=== PATIENT | male | born 1945 | race Caucasian/White ===

== ENCOUNTER 2020-05-24 08:43 | Outpatient (CLI) | payer MEDICARE, SELFPAY ==
--- NOTE | ~2020-05-24 | XR_ITS ---
EXAMINATION: XR abdomen/kub 1V INDICATION: Bilateral kidney stones TECHNIQUE: Supine views of the abdomen were obtained on 2 radiographs. COMPARISON: None FINDINGS: Bowel contents project over the kidneys limiting sensitivity for renal stones. A 4 mm ston e projects in the lower pole of the right kidney. A 5 mm stone projects in the left mid kidney. No de finite stones project along the expected courses of the ureters or within the urinary bladder. There are phleboliths of the pelvis. The bowel gas pattern is normal. There is moderate osteoarthritis of t he hips. IMPRESSION: 1. Bilateral nephrolithiasis. Reviewed, dictated and finalized at location A. O ARTIST
== END 2020-05-24 08:44 | disposition home or self-care (01) ==
LOC: ANHIMG 08:54
PROVIDERS: PCP Physician Assistant; Visit Provider Surgery
DX: N20.0 Calculus of kidney (principal)
CPT/HCPCS: 74018

== ENCOUNTER 2020-06-28 01:45 | Outpatient (CLI) | payer MEDICARE, SELFPAY ==
[2020-06-28 18:12] LABS: SARS-CoV-2 RNA PCR Negative
== END 2020-06-28 01:46 | disposition home or self-care (01) ==
LOC: ANHCOVIDDT 01:48
PROVIDERS: PCP Physician Assistant; Visit Provider Urology
DX: Z01.812 Encounter for preprocedural laboratory examination (principal); Z20.822 Contact with and (suspected) exposure to COVID-19
CPT/HCPCS: C9803; U0003; U0005

== ENCOUNTER 2020-07-01 01:02 | Day surgery (SDC) | payer MEDICARE, SELFPAY ==
[2020-06-17 09:16] VITALS: BMI 27.5
--- NOTE | 2020-06-28 07:17 | PM.HPGS ---
History of Present Illness History of Present Illness Consent: Risks, benefits, and alternatives have been discussed and questions answered. Patient agrees to proceed with procedure. Chief complaint: Bilateral Kidney Stones Narrative: Samuel Sanchez is a 75 year old male with a long history of recurring urolithiasis who has previously seen Dr. Howard Caballero. With my 1st evaluation upper urinary tract imaging revealed bilateral renal calculi measuring 4-5 mm. Is somewhat symptomatic on the right, prompting decision to proceed with right ESWL. He may opt for left ESWL in the future, as well. Review of Systems Cardiovascular: Cardiovascular: Denies chest pain, Denies lightheadedness, Denies palpitations and Denies dyspnea Respiratory: Respiratory: Denies dyspnea Gastrointestinal: Gastrointestinal: Denies diarrhea, Denies nausea and Denies vomiting Genitourinary: Genitourinary: Denies hematuria and Denies dysuria Endocrine: Endocrine: Denies palpitations [facility] Social History Social History Smoking packs per day: 1.5 Smoking cigarettes per day: 30.0 Years smoked: 30 Smoking pack-years: 45.00 Smoking status: Former smoker Tobacco type: cigarettes Second hand tobacco smoke exposure: No Additional smoking assessment comments: QUIT 1994 Alcohol intake: current Drinks per week: 3 Substance use: never Substance use type: does not use Spiritual care concerns: No Meds Home Medications and Allergies Home Medications Medication Instructions Recorded Confirmed Type biotin 10,000 mcg PO DAILY 06/17/20 06/17/20 History famotidine 40 mg PO HS 06/17/20 06/17/20 History ketoconazole 1 applic TOPICAL 3XW 06/17/20 06/17/20 History methotrexate sodium [Methotrexate 2.5 mg PO WEEKLY 06/17/20 06/17/20 History (Anti-Rheumatic)] multivitamin [Multi-Vitamin] 1 tablet PO DAILY 06/17/20 06/17/20 History omeprazole 40 mg PO DAILY 06/17/20 06/17/20 History tamsulosin [Flomax] 0.4 mg PO DAILY 06/17/20 06/17/20 History tizanidine 4 mg PO TID PRN 06/17/20 06/17/20 History vit C,T-Ae-nvedh-lutein-zeaxan 1 tablet PO BID 06/17/20 06/17/20 History [PreserVision AREDS-2] Allergies Allergy/AdvReac Type Severity Reaction Status Date / Time hydrocodone [From Vicodin] AdvReac Itching Verified 06/17/20 09:10 Exam Const: General: no acute distress Resp: Effort & Inspection: normal respiratory effort GI: Inspection: non-distended GI Palp: No abdominal tenderness and No Guarding due to palpation present (GI) Auscultation: normal bowel sounds Assessment and Plan Assessment and plan (1) Bilateral renal stones: Code(s): N20.0 - Calculus of kidney Status: Acute Assessment and Plan: Right ESWL
--- NOTE | 2020-06-30 14:36 | WPDANESEPPF ---
Anes - Initial Pre Proc Eval Procedure: Operation Date: 07/01/20 07:30 Proposed Procedures p Right Extracorporeal Shock Wave Lithotripsy - Manpreet Saravia MD Date/Time: 06/30/20 14:36 Surgeon: Manpreet Saravia MD Pre Op Diagnosis: Bilateral Kidney Stones Patient Data Age: 75 Gender: M Height: 1.85 m Weight: 94.54 kg Allergies Allergy/AdvReac Type Severity Reaction Status Date / Time hydrocodone [From Vicodin] AdvReac Itching Verified 07/01/20 06:49 Home Medications Medication Instructions Recorded Confirmed Type biotin 10,000 mcg PO DAILY 06/17/20 07/01/20 History famotidine 40 mg PO HS 06/17/20 07/01/20 History ketoconazole 1 applic TOPICAL 3XW 06/17/20 07/01/20 History methotrexate sodium [Methotrexate 2.5 mg PO WEEKLY 06/17/20 07/01/20 History (Anti-Rheumatic)] multivitamin [Multi-Vitamin] 1 tablet PO DAILY 06/17/20 07/01/20 History omeprazole 40 mg PO DAILY 06/17/20 07/01/20 History tamsulosin [Flomax] 0.4 mg PO DAILY 06/17/20 07/01/20 History tizanidine 4 mg PO TID PRN 06/17/20 07/01/20 History vit C,I-Ni-tbpne-lutein-zeaxan 1 tablet PO BID 06/17/20 07/01/20 History [PreserVision AREDS-2] Patient hx anesthesia problems: none Family hx anesthesia problems: none PMFSH Past Medical History Medical History (Updated 06/30/20 @ 14:38 by Rogelio Dias MD) Bilateral renal stones BPH (benign prostatic hyperplasia) Chronic GERD Laryngeal cancer Osteoarthritis Rheumatoid arthritis Social History Social History Smoking packs per day: 1.5 Smoking cigarettes per day: 30.0 Years smoked: 30 Smoking pack-years: 45.00 Smoking status: Former smoker Tobacco type: cigarettes Second hand tobacco smoke exposure: No Additional smoking assessment comments: QUIT 1993 Alcohol intake: current Drinks per week: 3 Substance use: never Substance use type: does not use Living arrangements: with family Spiritual care concerns: No Anes - Eval Final PreProcedure Day of Procedure 06/30/20 14:36 Patient weight: obese Heart: regular rate and rhythm Lungs: clear to auscultation and normal air movement Airway: Mallampati scale class II Neurological: alert and oriented Last oral intake: >/= 8 hours ASA classification: III Emergent: no Anesthetic plan: proceed Anesthesia type and monitoring: general LMA Informed Consent: The patient's anesthetic plan and its attendant risks and benefits were discussed with the patient/family/POA. Questions were solicited and answers provided to the satisfaction of the patient/family/POA.
[2020-07-01] VITALS (9 sets, daily range): BP systolic 98–135; BP diastolic 62–87; PULSE 58–64; RESP 12–20; TEMP 36.3–36.6; O2SAT 96–100
--- NOTE | ~2020-07-01 | XR_ITS ---
EXAMINATION: XR abdomen/kub 1V EXAM DATE: 07/01/2020 06:20 INDICATION: For lithotripsy. TECHNIQUE: Frontal projection(s) of the abdomen for interpretation. Comparison is made to prior exami nation from 05/24/2020. FINDINGS: Stool overlying both renal contours, but possible identification of previously suspected 5 mm right inferior calyceal stone. The pelvic calcifications appear unchanged. Moderate bony degenerat marcelino changes. Nonobstructive bowel gas pattern. IMPRESSION: Probable identification right nephrolithiasis. Reviewed, dictated and finalized at location A. ING MANAGER
--- NOTE | 2020-07-01 06:49 | WPDHPUPDATE1 ---
History and Physical Update Update Date/Time: 07/01/20 06:49 History and Physical has been reviewed, including an updated exam of the patient. There are NO changes in the patient's condition. Risks, benefits, and alternatives have been discussed and questions answered. Patient agrees to proceed with procedure.
[2020-07-01] MEDS: LACTATED RINGERS 1,000 ML 30 ML IV CONT ×2 (06:58→08:01)
[2020-07-01] MEDS: ceFAZolin 2 GM/D5W 50 ML 2 GM/50 ML BAG IVPB (07:19)
--- NOTE | 2020-07-01 07:44 | PM.PROC ---
Procedure Note - Detailed Date of procedure: 07/01/20 Pre-op diagnosis: Bilateral Kidney Stones Post-op diagnosis: same Procedure performed: Right ESWL Description of procedure: The patient was brought to the operative suite where he was placed in the supine position on the Dornier lithotripsy table. The focal point of the lithotripter was placed at a 5mm right lower pole calculus. A total of 2500 shocks were delivered at a power setting of 4. There appeared to be good fragmentation of the stone. The patient tolerated the procedure well and was taken to the recovery room in good condition. Anesthesia: GLMA Surgeon: Manpreet Saravia MD Estimated blood loss (mL): 0 Drains: No Packing: No Pathology: none sent Complications: No immediate complications Condition: stable Disposition: PACU
== END 2020-07-01 09:27 | disposition home or self-care (01) ==
PROVIDERS: PCP Physician Assistant; Visit Provider Urology
PROC: (CPT 50590; principal; 2020-07-01 07:30)
DX: N20.0 Calculus of kidney (principal); Z87.891 Personal history of nicotine dependence
CPT/HCPCS: 50590; 74018; C9803; J0690; J1100; J2405; J2704; J3010; J7120; U0003; U0005

== ENCOUNTER 2020-12-01 01:42 | Day surgery (SDC) | payer MEDICARE, SELFPAY ==
[2020-11-30 16:01] VITALS: BMI 27.7
--- NOTE | ~2020-12-01 | XR_ITS ---
EXAMINATION: XR fluoroscopy no charge DATE: 12/01/2020 14:01 INDICATION: Left ureteral stone. TECHNIQUE: 5 intraoperative fluoroscopic views of the abdomen and pelvis were obtained. I was not pre sent. Fluoroscopy exposure time was 46 seconds. COMPARISON: Abdomen radiographs 07/01/2020 FINDINGS: Images demonstrate a wire in the left ureter. IMPRESSION: 1. No visible urolithiasis. Reviewed, dictated and finalized at location A. IMPRESSION: 1. No visible urolithiasis.
--- NOTE | 2020-12-01 06:41 | WPDHPUPDATE1 ---
History and Physical Update Update Date/Time: 12/01/20 06:41 History and Physical has been reviewed, including an updated exam of the patient. There are NO changes in the patient's condition. Risks, benefits, and alternatives have been discussed and questions answered. Patient agrees to proceed with procedure.
[2020-12-01 12:03] VITALS: BP 114/79; PULSE 72; RESP 20; TEMP 36.6; O2SAT 99
--- NOTE | 2020-12-01 12:16 | WPDANESEPPF ---
Anes - Initial Pre Proc Eval Procedure: Operation Date: 12/01/20 15:00 Proposed Procedures p Cystoscopy, Left Ureteroscopy, Left Retrograde Pyelogram, Left Stone Extraction, Possible Left Stent Placement, - Manpreet Saravia MD s Possible Holmium Laser Procedure - Manpreet Saravia MD Date/Time: 12/01/20 12:16 Surgeon: Manpreet Saravia MD Pre Op Diagnosis: left renal stone Patient Data Age: 75 Gender: M Height: 1.85 m Weight: 96.2 kg Last Vital Signs Temp 36.6 C 12/01/20 12:03 Pulse 72 12/01/20 12:03 Resp 20 12/01/20 12:03 BP 114/79 12/01/20 12:03 Pulse Ox 99 12/01/20 12:03 Allergies Allergy/AdvReac Type Severity Reaction Status Date / Time hydrocodone [From Vicodin] AdvReac Itching Verified 11/30/20 15:40 Home Medications Medication Instructions Recorded Confirmed Type PreserVision AREDS-2 1 tablet PO BID 06/17/20 12/01/20 History biotin 10,000 mcg PO DAILY 06/17/20 12/01/20 History famotidine 40 mg PO HS 06/17/20 12/01/20 History ketoconazole 1 applic TOPICAL 3XW 06/17/20 12/01/20 History methotrexate sodium 2.5 mg PO WEEKLY 06/17/20 12/01/20 History multivitamin 1 tablet PO DAILY 06/17/20 12/01/20 History omeprazole 40 mg PO DAILY 06/17/20 12/01/20 History tamsulosin [Flomax] 0.4 mg PO DAILY 06/17/20 12/01/20 History tizanidine 4 mg PO TID PRN 06/17/20 12/01/20 History tramadol 50 mg PO Q6H PRN #20 tablet 07/01/20 12/01/20 Rx Patient hx anesthesia problems: none Family hx anesthesia problems: none PMFSH Past Medical History Medical History Bilateral renal stones BPH (benign prostatic hyperplasia) Chronic GERD Laryngeal cancer Osteoarthritis Rheumatoid arthritis Social History Social History Smoking packs per day: 1.5 Smoking cigarettes per day: 30.0 Years smoked: 37 Smoking pack-years: 55.50 Smoking status: Former smoker Tobacco type: cigarettes Second hand tobacco smoke exposure: No Smoking end date: 06/03/93 Additional smoking assessment comments: QUIT 1993 Alcohol intake: current Drinks per week: 3 Substance use: never Substance use type: does not use Living arrangements: with family Spiritual care concerns: No Anes - Eval Final PreProcedure Day of Procedure 12/01/20 12:16 Patient weight: overweight Heart: regular rate and rhythm Lungs: clear to auscultation Airway: Mallampati scale class II Neurological: alert and oriented Last oral intake: >/= 8 hours ASA classification: III Anesthetic plan: proceed Anesthesia type and monitoring: general LMA and standard monitoring Informed Consent: The patient's anesthetic plan and its attendant risks and benefits were discussed with the patient/family/POA. Questions were solicited and answers provided to the satisfaction of the patient/family/POA.
[2020-12-01] MEDS: LACTATED RINGERS 1,000 ML 30 ML IV CONT (12:20)
[2020-12-01] MEDS: ceFAZolin 2 GM/D5W 50 ML 2 GM/50 ML BAG IVPB (13:30)
[2020-12-01] MEDS: LIDOCAINE HCL 2% GEL UROJET 10 ML PKG MUCOUS MEM (13:44)
[2020-12-01] MEDS: KETOROLAC 15 MG/ML VIAL (*BKC) IV PUSH (13:54)
[2020-12-01 14:02] VITALS: BP 99/75; PULSE 60; RESP 10; TEMP 36.2; O2SAT 99
--- NOTE | 2020-12-01 14:08 | W.PM.PROC2 ---
Procedure Note - Detailed Date of Procedure 12/01/20 Pre-op Diagnosis left ureterall stone Post-op Diagnosis other (1. Left ureteral stone 2. Bulbous urethral stricture) Procedure Performed 1. Cystoscopy with urethral dilatation 2. Left ureteroscopy with stone extraction Surgeon Manpreet Saravia MD Assignment Officer none Anesthesia general Indications left ureteral stone Findings 1. Moderately constricting bulbous urethral stricture 2. 5mm left distal ureteal stone Description of Procedure patient brought to the op suite where he has prepped draped in routine sterile fashion while in a dorsal lithotomy position. 2% xylocaine jelly was introduced intraurethrally and general anesthesia administered per the anesthesia department. I could passively 19 F rigid cystoscope because of a bulbous urethral stricture. I dilated that from 16-26 F with Kellie sounds. The place the scope. He has moderate lateral lobe hyperplasia of the prostate with only a small median lobe. The bladder was trabeculated but there is no intravesical foreign body or neoplasm in the urothelial mucosa is normal in appearance. His single orthotopic ureteral orifice bilaterally. A 0.035 in glidewire was advanced in the left renal pelvis. The distal ureter was dilated with an 8 F times F dilator. Left ureteroscopy was undertaken with a semi rigid ureteral scope. I grasped the stone with a 1.9 F disposable escape basket but it was just too large to extracted this point. Therefore gently dilated the distal ureter with a 10 cm balloon at low pressure in for a short period of time. With repeat ureteroscopy the stone then easily came free and was extracted. Considered placing left ureteral stent because of the relative ease of this procedure opted against it. Scopes and wires removed and was taken recovery room in good condition. Implants none Estimated Blood Loss 0 Drains No Packing No Pathology yes Complications No immediate complications Condition stable Disposition PACU
[2020-12-01 14:15] VITALS: BP 118/83; PULSE 64; RESP 17; O2SAT 100
[2020-12-01 14:30] VITALS: BP 127/86; PULSE 60; RESP 12; O2SAT 99
[2020-12-01 14:45] VITALS: BP 122/77; PULSE 57
[2020-12-01 15:15] VITALS: BP 139/78; PULSE 56
== END 2020-12-01 15:30 | disposition home or self-care (01) ==
PROVIDERS: PCP Physician Assistant; Visit Provider Urology
PROC: (CPT 52352; principal; 2020-12-01 15:00)
DX: N20.1 Calculus of ureter (principal); N35.912 Unspecified bulbous urethral stricture, male; N40.0 Benign prostatic hyperplasia without lower urinary tract symptoms; K21.9 Gastro-esophageal reflux disease without esophagitis; M06.9 Rheumatoid arthritis, unspecified; M19.90 Unspecified osteoarthritis, unspecified site; Z87.891 Personal history of nicotine dependence; Z85.21 Personal history of malignant neoplasm of larynx
CPT/HCPCS: 52352; 82365; 88300; A9270; C1726; C1769; J0690; J1100; J1885; J2405; J2704; J3010; J7120; Q9966

== ENCOUNTER 2020-12-06 13:42 | Outpatient (CLI) | payer MEDICARE, SELFPAY ==
--- NOTE | ~2020-12-06 | US_ITS ---
EXAMINATION: US retroperitoneal comp EXAM DATE: 12/06/2020 14:10 INDICATION: Left flank pain. TECHNIQUE: Multiple grayscale and Doppler images of the kidneys were obtained (by a technologist who performed the scan) and subsequently reviewed. There is no prior study for comparison. FINDINGS: Right kidney: There is normal contour with increased renal pyramid echogenicity. It measures 10.8 x 5.9 x 7.3 centimeters. There is a cyst measuring 3 cm. There is no hydronephrosis. Left kidney: There is normal contour with increased renal parenchymal echogenicity. It measures 11.1 x 6.2 x 7.0 centimeters. There are no focal renal lesions identified. Mild to moderate hydronephro sis Bladder unremarkable.. Neither ureteral jet was identified. Prostate measures 4.1 cm diameter total v olume 47 mL. IMPRESSION: 1. 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 2. Mild to moderate left hydronephrosis which could indicate obstructing stone. Reviewed, dictated and finalized at location B. IMPRESSION: 1. 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 2. Mild to moderate left hydronephrosis which could indicate obstructing stone .
== END 2020-12-06 13:43 | disposition home or self-care (01) ==
LOC: ANHIMG 13:46
PROVIDERS: PCP Physician Assistant; Visit Provider Urology
DX: R10.9 Unspecified abdominal pain (principal)
CPT/HCPCS: 76770

== ENCOUNTER 2021-09-04 13:33 | Outpatient (CLI) | payer MEDICARE, SELFPAY ==
--- NOTE | ~2021-09-04 | XR_ITS ---
EXAMINATION: XR abdomen/kub 1V DATE: 09/04/2021 13:51 INDICATION: Left hydronephrosis. TECHNIQUE: A supine view of the abdomen on 2 radiographs was obtained. COMPARISON: Abdomen radiographs 07/01/2020, 05/24/2020 FINDINGS: There are no dilated loops of bowel. There are vascular calcifications in the pelvis. IMPRESSION: 1. No visible urolithiasis. Reviewed, dictated and finalized at location A. IMPRESSION: 1. No visible urolithiasis.
== END 2021-09-04 13:34 | disposition home or self-care (01) ==
LOC: ANHIMG 13:37
PROVIDERS: PCP Physician Assistant; Visit Provider Urology
DX: N13.30 Unspecified hydronephrosis (principal)
CPT/HCPCS: 74018

== ENCOUNTER 2022-07-05 08:56 | Outpatient (CLI) | payer MEDICARE, SELFPAY ==
[2022-07-05 19:50] LABS: Basophils Percent Auto 0.5 % (0.2-1.2); Eosinophils Absolute Auto 0.2 K/mm3 (0-0.3); Eosinophils Percent Auto 3.2 % (0-4.4); Hematocrit 48.8 % (42.0-52.0); Hemoglobin 15.8 g/dL (14.0-18.0); Immature Granulocyte Absolute 0.02 K/mm3 (0.00-0.031); Immature Granulocyte Percent A 0.3 % (0-0.5); Lymphocytes Absolute Auto 1.49 K/mm3 (0.9-3.2); Mean Corpuscular HGB Conc 32.4 g/dl (32-36); Mean Corpuscular Hemoglobin 31.7 pg (26-34); Mean Platelet Volume 11.5 fl (7.4-10.4); Monocytes Absolute Auto 0.7 K/mm3 (0.1-0.6); Monocytes Percent Auto 9.2 % (2.6-8.5); Neutrophils Percent Auto 66.8 % (45.5-73.1); Platelet Count Result 167 k/mm3 (150-375); Red Blood Count 4.98 M/mm3 (4.6-6.20); Red Cell Distribution Width 13.9 % (11.5-14.5); White Blood Count 7.5 K/mm3 (4.5-10.0)
[2022-07-05 20:23] LABS: Cholesterol 166 mg/dL (0-200); HDL Direct 31 mg/dL; Triglycerides 135 mg/dL (<150)
[2022-07-05 20:33] LABS: LDL Cholesterol Direct 95 mg/dL
== END 2022-07-05 08:57 | disposition home or self-care (01) ==
PROVIDERS: PCP Family Medicine; Visit Provider Family Medicine
DX: N40.0 Benign prostatic hyperplasia without lower urinary tract symptoms (principal); Z12.5 Encounter for screening for malignant neoplasm of prostate; Z79.899 Other long term (current) drug therapy
CPT/HCPCS: 36415; 80061; 85025

== ENCOUNTER 2022-08-20 09:36 | Outpatient (CLI) | payer MEDICARE, SELFPAY ==
--- NOTE | ~2022-08-20 | XR_ITS ---
XR sinus min 3V DATE: 08/20/2022 10:10 INDICATION: Shortness of breath, nasal congestion, dizziness TECHNIQUE: matt Jay, lateral and submental vertical views COMPARISON: None FINDINGS: There are fluid levels of both maxillary sinuses. The frontal sinuses, ethmoid air cells an d sphenoid sinuses appear essentially unremarkable. Mastoid air cells appear unremarkable. IMPRESSION: Bilateral maxillary sinus air-fluid levels suggesting bilateral maxillary sinusitis Reviewed, dictated and finalized at location B. IMPRESSION: Bilateral maxillary sinus air-fluid levels suggesting bilateral max illary sinusitis
--- NOTE | ~2022-08-20 | XR_ITS ---
Clinical Indication: Dyspnea PA and lateral views of the chest: Comparison: None Findings: The lungs are clear, without evidence of focal consolidation or pleural effusion. Cardiome diastinal silhouette is within normal limits. DISH of the thoracic spine noted. Impression: Clear lungs. Reviewed, dictated and finalized at location . Impression: Clear lungs.
[2022-08-20 19:57] LABS: Alanine Aminotransferase 26 U/L (6-50); Albumin Level 4.3 g/dL (3.5-5.1); Alkaline Phosphatase 84 U/L (38-126); Anion Gap 4 mmol/L (8-16); Aspartate Amino Transferase 28 U/L (17-59); Bilirubin,Total 0.8 mg/dL (0.2-1.3); Blood Urea Nitrogen 22 mg/dL (9-20); Calcium 9.1 mg/dL (8.4-10.2); Carbon Dioxide 30 mmol/L (22-30); Chloride 106 mmol/L (98-107); Estimated Glomerular Filt Rate > 60; Glucose 127 mg/dL (65-110); Potassium 3.9 mmol/L (3.4-5.0); Sodium 140 mmol/L (137-145)
[2022-08-20 21:06] LABS: Appearance Urine Clear (Clear); Bilirubin Urine Negative (Negative); Blood Urine Negative (Negative); Color Urine Yellow (Yellow); Glucose Urine UA Negative (Negative); Ketones Urine Trace mg/dL (Negative); Leukocyte Esterase Ur Negative LEU/UL (NEGATIVE); Nitrate Urine Negative (Negative); Protein Urine Trace mg/dL (Negative); Specific Grav Ur >= 1.030 (1.001-1.035); Urobilinogen Urine 0.2 mg/dL (<2.0)
[2022-08-20 22:00] LABS: Add Urine Microscopic? YES; RBC Urine None seen /hpf (0-2)
[2022-08-20 22:01] LABS: Calcium Oxalate Crystals Urine Many /hpf; Squamous Epithelial Cell Urine Few /hpf (Few); WBC Urine 0-3 /hpf (0-3)
[2022-08-20 22:02] LABS: Bacteria Urine None seen /hpf
== END 2022-08-20 09:37 | disposition home or self-care (01) ==
PROVIDERS: PCP Family Medicine; Visit Provider Family Medicine
DX: R42 Dizziness and giddiness (principal); R06.00 Dyspnea, unspecified
CPT/HCPCS: 36415; 70220; 71046; 80053; 81001

== ENCOUNTER 2022-10-22 12:53 | Outpatient (CLI) | payer MEDICARE, SELFPAY ==
--- NOTE | ~2022-10-22 | CT_ITS ---
EXAMINATION: CT abdomen pelvis wo con DATE: 10/22/2022 13:17 INDICATION: Constipation. Lower abdominal pain. Leukocytosis TECHNIQUE: Computed tomography (CT) of the abdomen and pelvis was performed without intravenous contr ast. Automated exposure control and iterative reconstruction technique were employed. The dose-length product was 756.99 mGy-cm. COMPARISON: None FINDINGS: Mild atelectasis at the bilateral lung bases. Heart size is normal. Atherosclerotic coronary artery a nd aortic valve calcifications. No pericardial or pleural effusion. Small sliding-type hiatal hernia. 9 mm low-attenuation cyst versus hemangioma in the left hepatic lobe. Gallbladder, spleen, pancreas and bilateral adrenal glands are normal. Bilateral renal parenchymal and parapelvic cysts, the larges t at the upper pole of the right kidney measuring 4.5 cm. A few bilateral small renal stones the larg est on the right measuring 5 x 1 mm in the remainder all <2 mm. No ureteral stones or hydronephrosis. There are few scattered colonic diverticula without adjacent inflammatory stranding to suggest diver ticulitis. Fluid is seen in the ascending and transverse colon consistent with nonspecific diarrhea. Small bowel and appendix are normal. There is mild wall thickening of the partially decompressed blad jesus with haziness to the surrounding fat which could be seen with cystitis. Prostatomegaly. Small fat -containing right inguinal hernia. No free intraperitoneal gas or fluid. No pathologically enlarged a bdominal or pelvic lymphadenopathy. Mild to moderate degenerative skeletal changes in the spine and b ilateral hips. IMPRESSION: 1. Bilateral nonobstructing nephrolithiasis. 2. Fluid in the proximal to mid colon consistent with nonspecific diarrhea. Correlate clinically for gastroenteritis. 3. Mild scattered diverticulosis. 4. Mild bladder wall thickening and haziness to the surrounding fat which could be seen with cystitis . Correlate with urinalysis. 5. Prostatomegaly. 6. Small fat-containing right inguinal hernia. Reviewed, dictated and finalized at location A. IMPRESSION: 1. Bilateral nonobstructing nephrolithiasis. 2. Fluid in the proximal to mid colon consistent with nonspecific diarrhea. Cor relate clinically for gastroenteritis. 3. Mild scattered diverticulosis. 4. Mild bladder wall thickening and haziness to the surrounding fat which could be seen with cystitis. Correlate with urinalysis. 5. Prostatomegaly. 6. Small fat-containing right inguinal hernia.
== END 2022-10-22 12:54 | disposition home or self-care (01) ==
PROVIDERS: PCP Family Medicine; Visit Provider Nurse Practitioner
DX: K59.00 Constipation, unspecified (principal); R68.83 Chills (without fever); D72.829 Elevated white blood cell count, unspecified; N20.0 Calculus of kidney; K57.30 Diverticulosis of large intestine without perforation or abscess without bleeding; N40.0 Benign prostatic hyperplasia without lower urinary tract symptoms; K40.90 Unilateral inguinal hernia, without obstruction or gangrene, not specified as recurrent
CPT/HCPCS: 74176

== ENCOUNTER 2022-12-06 10:14 | Outpatient (CLI) | payer MEDICARE, SELFPAY ==
--- NOTE | ~2022-12-06 | XR_ITS ---
Right foot Technique: AP, oblique, and lateral views were obtained. Clinical History: Enthesopathy Findings: No acute fracture or dislocation is seen. Osseous alignment is anatomic. Joint spaces are p reserved without erosive or degenerative change. Soft tissues are unremarkable. Impression: Unremarkable right foot radiographs. Reviewed, dictated and finalized at [facility]. Impression: Unremarkable right foot radiographs.
== END 2022-12-06 10:15 | disposition home or self-care (01) ==
PROVIDERS: PCP Nurse Practitioner Adult Health; Visit Provider Nurse Practitioner Adult Health
DX: M77.9 Enthesopathy, unspecified (principal)
CPT/HCPCS: 73630

== ENCOUNTER 2022-12-24 09:18 | Emergency (ER) | payer MEDICARE, SELFPAY ==
--- NOTE | ~2022-12-24 | XR_ITS ---
XR chest 1V DATE: 12/24/2022 10:02 INDICATION: Dyspnea TECHNIQUE: AP chest COMPARISON: 08/20/2022 PA and lateral chest FINDINGS: Normal heart size. There is aortic ectasia and tortuosity. No hilar or mediastinal enlargem ent is evident. The lungs are clear of infiltrate or consolidation. No pleural effusion or pulmonary vascular congest ion or pneumothorax is detected. Diffuse idiopathic skeletal hyperostosis of the thoracic spine. IMPRESSION: No active cardiopulmonary disease or significant change since 08/20/2022 Reviewed, dictated and finalized at location B. IMPRESSION: No active cardiopulmonary disease or significant change since 2022
--- NOTE | ~2022-12-24 | CT_ITS ---
EXAMINATION: CT brain wo con DATE: 12/24/2022 09:54 INDICATION: Headache. Prior stroke. TECHNIQUE: Computed tomography (CT) of the head was performed without intravenous contrast. Sagittal and coronal reconstructions were performed. The mA was adjusted according to patient size. Iterative reconstruction technique was employed. The dose-length product was 605.33 mGy-cm. COMPARISON: None FINDINGS: No acute acute infarction. 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 No no evident more focal higher attenuation acute intracranial h emorrhage. Symmetric prominence of the subarachnoid spaces overlying the convexities and surrounding the cerebellum consistent with mild age-appropriate diffuse cerebral volume loss. Ventricles are nor mal and symmetric. No mass/mass effect. Posterior layering bubbly mucus in the right sphenoid sinus. Postoperative changes of prior sinus surgery with defects at the medial neil of the bilateral maxill chivo sinuses along the inferior neil of the bilateral ethmoid sinuses. The orbits and mastoid air floyd ls are normal. IMPRESSION: 1. No acute intracranial process. 2. Bilateral hypodense subdural fluid collections which could represent either subdural hygromas or c hronic subdural hematomas. 3. Bubbly mucus in the right sphenoid sinus which could be seen with acute sinusitis. Reviewed, dictated and finalized at location A. IMPRESSION: 1. No acute intracranial process. 2. Bilateral hypodense subdural fluid collections which could represent either subdural hygromas or chronic subdural hematomas. 3. Bubbly mucus in the right sphenoid sinus which could be seen with acute sinu sitis.
[2022-12-24 09:23] VITALS: BP 131/87; PULSE 83; RESP 16; TEMP 36.8; O2SAT 100
--- NOTE | 2022-12-24 09:31 | ECG_ITS ---
Measurements Intervals [place] Rate: 65 P: -9 FL: 181 QRS: -8 QRSD: 90 T: 51 QT: 370 QTc: 386 Interpretive Statements SINUS RHYTHM WITH SINUS ARRHYTHMIA BASELINE ARTIFACT- I, II, III, V3 NORMAL ECG NO PREVIOUS ECG AVAILABLE FOR COMPARISON Electronically Signed On 12-24-2022 9:57:49 CDT by Igor Damon D.O.
[2022-12-24 09:40] VITALS: PULSE 70
[2022-12-24 09:41] LABS: Basophils Percent Auto 0.5 % (0.2-1.2); Eosinophils Absolute Auto 0.2 K/mm3 (0-0.3); Eosinophils Percent Auto 2.5 % (0-4.4); Hematocrit 45.9 % (42.0-52.0); Hemoglobin 15.5 g/dL (14.0-18.0); Immature Granulocyte Absolute 0.02 K/mm3 (0.00-0.031); Immature Granulocyte Percent A 0.3 % (0-0.5); Lymphocytes Absolute Auto 1.06 K/mm3 (0.9-3.2); Lymphocytes Percent Auto 16.6 % (18.3-44.2); Mean Corpuscular HGB Conc 33.8 g/dl (32-36); Mean Corpuscular Hemoglobin 31.6 pg (26-34); Mean Corpuscular Volume 93.5 fl (80-100); Mean Platelet Volume 10.6 fl (7.4-10.4); Monocytes Absolute Auto 0.4 K/mm3 (0.1-0.6); Monocytes Percent Auto 6.6 % (2.6-8.5); Neutrophils Absolute Auto 4.7 K/mm3 (1.3-6.7); Neutrophils Percent Auto 73.5 % (45.5-73.1); Platelet Count Result 148 k/mm3 (150-375); Red Blood Count 4.91 M/mm3 (4.6-6.20); Red Cell Distribution Width 14.4 % (11.5-14.5); White Blood Count 6.4 K/mm3 (4.5-10.0)
--- NOTE | 2022-12-24 09:45 | ED.ARRPALP ---
HPI - Arrhythmia/Palpitations General Chief Complaint: Arrhythmia/Palpitations Stated Complaint: frederick/sob and palp last night Time Seen by Provider: 12/24/22 09:39 History of Present Illness HPI narrative: Pt presents with a few complaints. Pt had some SOB and felt like his heart was beating funny last night after he took a new medicine. This has resolved. Pt never had CP. Pt thinks it was a reaction to meds. Pt is more cncerned about his FREDERICK. Pt says he has had a dull FREDERICK for a few days but got worse after he coughed last night. Pt has history of head bleed so concerned it could be that. Pt says the FREDERICK vidhi better now. Pt denies numbness or weakness. Related Data Home Medications Medication Instructions Recorded Confirmed famotidine 40 mg tablet 40 mg PO HS 06/17/20 10/23/22 multivitamin 1 tablet PO DAILY 06/17/20 10/23/22 omeprazole 40 mg capsule,delayed 40 mg PO DAILY 06/17/20 10/23/22 release Ropinrole BYMOUTH 07/05/22 10/23/22 cetirizine 10 mg tablet 10 mg PO DAILY PRN 07/05/22 10/23/22 finasteride 5 mg tablet 5 mg PO DAILY 07/05/22 10/23/22 levetiracetam 500 mg tablet 500 mg PO Q12H 07/05/22 10/23/22 Allergies Allergy/AdvReac Type Severity Reaction Status Date / Time hydrocodone [From Vicodin] AdvReac Itching Verified 12/24/22 10:05 Review of Systems Review of Systems: All systems reviewed & are unremarkable except as noted in HPI and below PMFSH Past Medical History Medical History (Updated 12/24/22 @ 11:11 by Chari Figueroa III, DO) Bilateral renal stones BPH (benign prostatic hyperplasia) Chronic GERD History of nephrolithotomy with removal of calculi Laryngeal cancer Melanoma Osteoarthritis Rheumatoid arthritis Surgical History Surgical History (Updated 02/19/22 @ 13:12 by Bianca Chase MA) H/O removal of testicle H/O shoulder surgery H/O vasectomy Family History Family History Other Heart disease Hypertension Social History Social History (Updated 07/05/22 @ 08:14 by Malia Aden MA) Smoking packs per day: 1.5 Smoking cigarettes per day: 30.0 Years smoked: 37 Smoking pack-years: 55.50 Smoking status: Former smoker Tobacco type: cigarettes Second hand tobacco smoke exposure: No Smoking end date: 06/03/95 Additional smoking assessment comments: QUIT 1993 Alcohol intake: current Drinks per week: 2 Alcohol use details: RUM Substance use: current Substance use type: marijuana Lack of Transportation: No Lack of Food: Never True Current Housing: I Have Housing Concerned About Future Housing: No Difficulty Paying Gas/Electric Bills: No Difficulty Paying for Meds: No Currently Unemployed: No Education: High School Diploma/GED Difficulty w/ Childcare or Family Care: YES Living arrangements: with family Occupation/Education: retired Spiritual care concerns: No Exam Const: General: healthy appearing Nutritional Appearance: well nourished Orientation/consciousness: patient oriented x3 Limitations: no limitations HENMT: Head: normal to inspection Eyes: Conjunctivae: conjunctivae normal Pupils: Equal, round and reactive pupils present EOM: EOMs intact bilaterally Direct Ophthalmoscopy: no photophobia Neck: Neck: normal visual inspection and no lymphadenopathy Resp: Effort & Inspection: normal respiratory effort Auscultation: clear to auscultation bilaterally Cardio: Rate: regular rate Rhythm: regular rhythm GI: Auscultation: normal bowel sounds Skin: General skin exam: normal color Rashes: no rashes Neuro: General: patient oriented x3, moves all extremities, no focal motor deficits and CN's II-XI intact bilaterally Cranial nerves: Yes Nystagmus not present Speech: normal speech Extrem: General: normal to inspection and no clubbing, cyanosis or edema Psych: Mental Status: mental status grossly normal Affect: normal affect Attitude: hua
[2022-12-24 09:51] LABS: Alanine Aminotransferase 26 U/L (6-50); Albumin Level 4.3 g/dL (3.5-5.1); Alkaline Phosphatase 70 U/L (38-126); Anion Gap 8 mmol/L (8-16); Aspartate Amino Transferase 23 U/L (17-59); Bilirubin,Total 0.9 mg/dL (0.2-1.3); Blood Urea Nitrogen 17 mg/dL (9-20); Calcium 8.8 mg/dL (8.4-10.2); Carbon Dioxide 27 mmol/L (22-30); Chloride 105 mmol/L (98-107); Estimated CRCL calculation 60 ml/min; Estimated Glomerular Filt Rate > 60; Glucose 93 mg/dL (65-110); Potassium 4.1 mmol/L (3.4-5.0); Sodium 140 mmol/L (137-145)
[2022-12-24 10:02] VITALS: BP 121/73; PULSE 65; RESP 20; O2SAT 100
[2022-12-24 11:09] LABS: Partial Thromboplastin Time 29.9 SECONDS (22.3-36.8); Prothrombin Time 13.6 Seconds (11.1-14.7)
[2022-12-24 11:28] VITALS: BP 140/86; PULSE 66; RESP 18; O2SAT 99
== END 2022-12-24 11:30 | disposition home or self-care (01) ==
PROVIDERS: Emergency Provider Emergency Medicine; PCP Family Medicine
DX: J32.9 Chronic sinusitis, unspecified (principal); R51.9 Headache, unspecified; N40.0 Benign prostatic hyperplasia without lower urinary tract symptoms; K21.9 Gastro-esophageal reflux disease without esophagitis; M06.9 Rheumatoid arthritis, unspecified; M19.90 Unspecified osteoarthritis, unspecified site; Z87.442 Personal history of urinary calculi; Z85.820 Personal history of malignant melanoma of skin; Z85.21 Personal history of malignant neoplasm of larynx; Z87.891 Personal history of nicotine dependence
CPT/HCPCS: 36415; 70450; 71045; 80053; 85025; 85610; 85730; 93005; 99284

== ENCOUNTER 2023-01-24 05:56 | Day surgery (SDC) | payer MEDICARE, SELFPAY ==
[2023-01-17 14:47] VITALS: BMI 28.5
--- NOTE | 2023-01-17 15:07 | PC.NURSE ---
Preop interview completed with pt. Informed pt no driving for 12 hours after procedure. Pt stated what you don't know won't hurt you . Explained to pt anesthesia and it is considered driving under the influence, safety reasons. Pt not receptive to instructions.
--- NOTE | 2023-01-17 15:26 | PC.NURSE ---
Pt states during review of [facility], he had a brain bleed in Jun. He sees a neurologist every [address] scans to monitor. Pt states he saw Neurologist yesterday and there was a slight increase in fluid. Attempted to call Dr Stuart and Dr Vázquez for notification.
--- NOTE | 2023-01-18 12:55 | SUR.PREOP ---
Spoke with Dr. Stuart about Pt's brain bleed. Pt states had a fall in 06/25 and hit his head, did not lose consciousness but was transferred to [facility] for 3 days of observation/scans due to a brain bleed. Pt states only symptom at the time was headaches which he still has. Pt states FREDERICK have not gotten worse. Pt denies seizures, nausea, balance issues, vision changes, altered mental status. Pt states sees a neurologist at [facility] every 6 weeks for scans. Pt states scan this week showed a slight increase in fluid but that the neurologist said he was not concerned with increase but was going to consult another doctor just to be sure. All above information related to Dr. Stuart. Per Dr. Stuart, Pt okay to have colonoscopy done at surgery center.
--- NOTE | 2023-01-23 09:16 | WPDANESEPPF ---
Anes - Initial Pre Proc Eval Procedure: Operation Date: 01/24/23 07:30 Proposed Procedures p Diagnostic Colonoscopy - Eze Ross MD Date/Time: 01/23/23 09:16 Surgeon: Eze Ross MD Pre Op Diagnosis: Other Fecal Abnormalities, HX Polyps Patient Data Age: 77 Gender: M Height: 1.85 m Weight: 98 kg Allergies Allergy/AdvReac Type Severity Reaction Status Date / Time amoxicillin [From Augmentin] AdvReac Intermediate Shakiness Verified 01/24/23 06:20 clavulanic acid AdvReac Intermediate Shakiness Verified 01/24/23 06:20 [From Augmentin] hydrocodone [From Vicodin] AdvReac Itching Verified 01/24/23 06:20 Home Medications Medication Instructions Recorded Confirmed Type multivitamin 1 tablet PO DAILY 06/17/20 01/24/23 History omeprazole 40 mg capsule,delayed 40 mg PO DAILY 06/17/20 01/24/23 History release finasteride 5 mg tablet 5 mg PO DAILY 07/05/22 01/24/23 History vit C 250 mg-vit E 200 unit-zinc 1 cap PO DAILY 01/17/23 01/24/23 History ox 12.5 [id number] capsule (ICaps AREDS2) Patient hx anesthesia problems: none Family hx anesthesia problems: none Results Review: All pre-operative results and documents have been reviewed as part of the pre-operative evaluation. [facility] Past Medical History Medical History (Updated 01/24/23 @ 07:51 by Herbie Vázquez DO) Bilateral renal stones BPH (benign prostatic hyperplasia) Brain bleed that is currently being monitored for the last 8 months Chronic GERD History of nephrolithotomy with removal of calculi Laryngeal cancer Melanoma Osteoarthritis Rheumatoid arthritis Surgical History Surgical History (Updated 02/19/22 @ 13:12 by Bianca Chase MA) H/O removal of testicle H/O shoulder surgery H/O vasectomy Family History Family History Other Heart disease Hypertension Social History Social History (Updated 07/05/22 @ 08:14 by Malia Aden MA) Smoking packs per day: 1.5 Smoking cigarettes per day: 30.0 Years smoked: 37 Smoking pack-years: 55.50 Smoking status: Former smoker Tobacco type: cigarettes Second hand tobacco smoke exposure: No Smoking end date: 06/03/95 Additional smoking assessment comments: QUIT 1993 Alcohol intake: current Drinks per week: 1 Alcohol use details: 2 A MONTH Substance use: current Substance use type: marijuana Other substance usage details: 2X A MONTH, GUMMYS Lack of Transportation: No Lack of Food: Never True Current Housing: I Have Housing Concerned About Future Housing: No Difficulty Paying Gas/Electric Bills: No Difficulty Paying for Meds: No Currently Unemployed: No Education: High School Diploma/GED Difficulty w/ Childcare or Family Care: YES Living arrangements: alone Occupation/Education: retired Spiritual care concerns: No Anes - Eval Final PreProcedure Day of Procedure 01/23/23 09:16 Patient weight: overweight Heart: regular rate and rhythm Lungs: clear to auscultation Airway: Mallampati scale class II Neurological: alert and oriented Last oral intake: >/= 8 hours ASA classification: III Emergent: no Anesthetic plan: proceed Anesthesia type and monitoring: general GIVS and standard monitoring Results Review: All pre-operative results and documents have been reviewed as part of the pre-operative evaluation. Informed Consent: The patient's anesthetic plan and its attendant risks and benefits were discussed with the patient/family/POA. Questions were solicited and answers provided to the satisfaction of the patient/family/POA.
[2023-01-24 06:29] VITALS: BP 129/95; PULSE 83; RESP 18; TEMP 36.7; O2SAT 99; BMI 28.5
[2023-01-24] MEDS: LACTATED RINGERS 1,000 ML 150 ML IV CONT (06:47)
--- NOTE | 2023-01-24 08:00 | PM.HPGS ---
History of Present Illness History of Present Illness Consent: Risks, benefits, and alternatives have been discussed and questions answered. Patient agrees to proceed with procedure. Chief complaint: Other Fecal Abnormalities, HX Polyps Narrative: Samuel Sanchez is a 77 year old male with change in bowel habits, had colonoscopy 1.5 year ago with polyp Review of Systems Constitutional: Constitutional: Denies headache(s) and Denies weakness Eyes: Eyes: Denies blurry vision ENT: Reports Normal hearing present, Denies headache(s) and Denies neck pain Cardiovascular: Cardiovascular: Denies chest pain and Denies dyspnea Respiratory: Respiratory: Denies dyspnea Gastrointestinal: Gastrointestinal: Reports no additional gastrointestinal complaints Genitourinary: Genitourinary: Denies dysuria Musculoskeletal: Musculoskeletal: Denies neck pain Integumentary/Breasts: Skin/Breast: Denies dry skin Neurologic: Reports Normal hearing present, Denies headache(s) and Denies weakness Psychiatric: Psychiatric: Denies anxiety Endocrine: Endocrine: Denies change in body appearance Hematologic/Lymphatic: Hematologic/Lymphatic: Denies easy bleeding Allergic/Immunologic: Allergic/Immunologic: Denies urticaria PMF Past Medical History Medical History (Updated 01/24/23 @ 07:51 by Herbie Vázquez DO) Bilateral renal stones BPH (benign prostatic hyperplasia) Brain bleed that is currently being monitored for the last 8 months Chronic GERD History of nephrolithotomy with removal of calculi Laryngeal cancer Melanoma Osteoarthritis Rheumatoid arthritis Surgical History Surgical History (Updated 02/19/22 @ 13:12 by Bianca Chase MA) H/O removal of testicle H/O shoulder surgery H/O vasectomy Family History Family History Other Heart disease Hypertension Social History Social History (Updated 07/05/22 @ 08:14 by Malia Aden MA) Smoking packs per day: 1.5 Smoking cigarettes per day: 30.0 Years smoked: 37 Smoking pack-years: 55.50 Smoking status: Former smoker Tobacco type: cigarettes Second hand tobacco smoke exposure: No Smoking end date: 06/03/95 Additional smoking assessment comments: QUIT 1993 Alcohol intake: current Drinks per week: 1 Alcohol use details: 2 A MONTH Substance use: current Substance use type: marijuana Other substance usage details: 2X A MONTH, DENIZ Lack of Transportation: No Lack of Food: Never True Current Housing: I Have Housing Concerned About Future Housing: No Difficulty Paying Gas/Electric Bills: No Difficulty Paying for Meds: No Currently Unemployed: No Education: High School Diploma/GED Difficulty w/ Childcare or Family Care: YES Living arrangements: alone Occupation/Education: retired Spiritual care concerns: No Meds Home Medications and Allergies Home Medications Medication Instructions Recorded Confirmed Type multivitamin 1 tablet PO DAILY 06/17/20 01/24/23 History omeprazole 40 mg capsule,delayed 40 mg PO DAILY 06/17/20 01/24/23 History release finasteride 5 mg tablet 5 mg PO DAILY 07/05/22 01/24/23 History vit C 250 mg-vit E 200 unit-zinc 1 cap PO DAILY 01/17/23 01/24/23 History ox 12.5 ve-khhjby-atxmwu-zeax capsule (ICaps AREDS2) Allergies Allergy/AdvReac Type Severity Reaction Status Date / Time amoxicillin [From Augmentin] AdvReac Intermediate Shakiness Verified 01/24/23 06:20 clavulanic acid AdvReac Intermediate Shakiness Verified 01/24/23 06:20 [From Augmentin] hydrocodone [From Vicodin] AdvReac Itching Verified 01/24/23 06:20 Vital Signs Vital Signs - 24 hr 01/24/23 06:29 Temperature 98.1 F Pulse Rate 83 Respiratory Rate 18 Blood Pressure 129/95 H Pulse Oximetry 99 Oxygen Delivery Room Air Exam Const: General: comfortable and no acute distress HENMT: Face/Nose/Sinus: Normal tirso
[2023-01-24 08:15] VITALS: BP 89/59; PULSE 79; RESP 16; O2SAT 94
[2023-01-24 08:25] VITALS: BP 95/75; PULSE 65; RESP 16; O2SAT 95
[2023-01-24 08:35] VITALS: BP 109/77; PULSE 78; RESP 15; O2SAT 95
[2023-01-24 08:45] VITALS: BP 107/74; PULSE 64; RESP 15; O2SAT 96
[2023-01-24 08:55] VITALS: BP 100/75; PULSE 65; RESP 16; O2SAT 96
--- NOTE | 2023-01-24 10:33 | WPDANESPN ---
Anes - Prog Note Post-Op Date/Time: 01/24/23 10:33 Cardiovascular status: normal Respiratory status: normal Airway patency: baseline Mental status: baseline Post-Op hydration status: normal Vital Signs: Last Vital Signs Temp 36.7 C 01/24/23 06:29 Pulse 65 01/24/23 08:55 Resp 16 01/24/23 08:55 BP 100/75 01/24/23 08:55 Pulse Ox 96 01/24/23 08:55 O2 Del Method Room Air 01/24/23 08:45 Pain Score (VAS): 0 I/O: Intake & Output 01/23/23 01/24/23 01/24/23 23:59 07:59 15:59 Intake Total 600 Balance 600 Post-procedural complaints: none Patient Feedback: Patient satisfied with anesthetic care. Other Findings: Patient vital signs back to baseline. Patient denies nausea and vomiting. Patient's pain under control. Patient OK for discharge.
== END 2023-01-24 09:10 | disposition home or self-care (01) ==
PROVIDERS: PCP Family Medicine; Visit Provider Internal Medicine Gastroenterology
PROC: 0DJD8ZZ Inspection of Lower Intestinal Tract, Via Natural or Artificial Opening Endoscopic (ICD-10-PCS; CPT 45378; principal; 2023-01-24 07:30)
DX: Z86.010 Personal history of colon polyps (principal); D12.0 Benign neoplasm of cecum; D12.5 Benign neoplasm of sigmoid colon; K57.30 Diverticulosis of large intestine without perforation or abscess without bleeding; K64.8 Other hemorrhoids
CPT/HCPCS: 45385

== ENCOUNTER 2023-01-24 09:00 | Outpatient (NON) | payer MEDICARE, SELFPAY | END 2023-01-24 09:01 | disposition home or self-care (01) | PROVIDERS: PCP Family Medicine; Visit Provider Internal Medicine Gastroenterology | DX: D12.0 Benign neoplasm of cecum (principal); D12.5 Benign neoplasm of sigmoid colon | CPT/HCPCS: 88305 ==

== ENCOUNTER 2023-02-07 11:12 | Outpatient (CLI) | payer MEDICARE, SELFPAY ==
--- NOTE | ~2023-02-07 | XR_ITS ---
EXAMINATION: XR hand BI arthritis min 3V DATE: 02/07/2023 12:19 INDICATION: Unspecified osteoarthritis, unspecified site. TECHNIQUE: 4 views of right hand and 4 views of left hand on 7 radiographs were obtained. COMPARISON: None. FINDINGS: RIGHT HAND: Bone alignment is normal. No fracture. There is mild osteoarthritis of triscaphe joint. T here is degenerative change in proximal lunate, consistent with ulnolunate impaction syndrome. There is mild osteoarthritis of triscaphe joint, first metacarpal joint, and many of the metacarpophalangea l joints and interphalangeal joints. There is moderate osteoarthritis of second metacarpophalangeal j oint, first interphalangeal joint, and third and fifth distal interphalangeal joints. There is a dyst rophic calcification palmar to the carpus. LEFT HAND: Bone alignment is normal. No fracture. There is mild osteoarthritis of distal radioulnar j oint, triscaphe joint, first carpometacarpal joint. There is mild osteoarthritis of many of the metac arpophalangeal joints and interphalangeal joints. There is moderate osteoarthritis of third metacarpo phalangeal joint. IMPRESSION: 1. Polyarticular osteoarthritis. Reviewed, dictated and finalized at location E.
[2023-02-07 12:14] LABS: Hematocrit 44.1 % (42.0-52.0); Hemoglobin 14.8 g/dL (14.0-18.0); Immature Platelet Fraction Pct 4.6 % (0.9-11.2); Mean Corpuscular HGB Conc 33.6 g/dl (32-36); Mean Corpuscular Hemoglobin 31.8 pg (26-34); Mean Corpuscular Volume 94.8 fl (80-100); Mean Platelet Volume 10.9 fl (7.4-10.4); Platelet Count Result 144 k/mm3 (150-375); Red Blood Count 4.65 M/mm3 (4.6-6.20); Red Cell Distribution Width 13.6 % (11.5-14.5); White Blood Count 5.8 K/mm3 (4.5-10.0)
[2023-02-07 12:26] LABS: Add Urine Microscopic? YES; Appearance Urine Clear (Clear); Bacteria Urine None Seen /hpf; Bilirubin Urine Negative (Negative); Blood Urine Negative (Negative); Color Urine Dark Yellow (Yellow); Glucose Urine UA Negative (Negative); Ketones Urine Negative (Negative); Leukocyte Esterase Ur 1+ LEU/UL (Negative); Nitrate Urine Negative (Negative); Non Pathogenic Casts 0-2; Protein Urine Negative (Negative); RBC Urine 0-2 /hpf (0-2); Specific Grav Ur 1.022 (1.001-1.035); Squamous Epithelial Cell Urine None seen /hpf (Few); Urobilinogen Urine 0.2 mg/dL (<2.0); WBC Urine 21-50 /hpf
[2023-02-07 12:31] LABS: Alanine Aminotransferase 22 U/L (6-50); Albumin Level 4.1 g/dL (3.5-5.1); Alkaline Phosphatase 60 U/L (38-126); Anion Gap 7 mmol/L (8-16); Aspartate Amino Transferase 21 U/L (17-59); Bilirubin,Total 0.6 mg/dL (0.2-1.3); Blood Urea Nitrogen 20 mg/dL (9-20); Calcium 8.5 mg/dL (8.4-10.2); Carbon Dioxide 26 mmol/L (22-30); Chloride 106 mmol/L (98-107); Estimated Glomerular Filt Rate > 60; Glucose 113 mg/dL (65-110); Potassium 3.8 mmol/L (3.4-5.0); Sodium 139 mmol/L (137-145)
[2023-02-07 12:36] LABS: Rheumatoid Factor 114.6 IU/ML (<12)
[2023-02-07 13:35] LABS: Erythrocyte Sedimentation Rate 12 mm/hr (0-20)
[2023-02-10 21:48] LABS: Anti Cyclic Citrullinated Pept <16 Units (<20)
[2023-02-12 14:38] LABS: NIL 0.04 IU/mL; Quantiferon TB Plus, 1T NEGATIVE (NEGATIVE); TB1-NIL <0.00 IU/mL; TB2-NIL <0.00 IU/mL
== END 2023-02-07 11:13 | disposition home or self-care (01) ==
LOC: ANHLAB 11:15
PROVIDERS: PCP Family Medicine; Visit Provider Internal Medicine
DX: M19.90 Unspecified osteoarthritis, unspecified site (principal); M06.9 Rheumatoid arthritis, unspecified
CPT/HCPCS: 36415; 73130; 80053; 81001; 85027; 85055; 85652; 86038; 86140; 86200; 86430; 86480; 87086; 87088

== ENCOUNTER 2023-04-04 10:31 | Outpatient (CLI) | payer MEDICARE, SELFPAY ==
--- NOTE | 2023-04-04 | ECG_ITS ---
Measurements Intervals [place] Rate: 80 P: 61 OH: 185 QRS: -11 QRSD: 86 T: 62 QT: 362 QTc: 418 Interpretive Statements SINUS RHYTHM VENTRICULAR PREMATURE COMPLEX BORDERLINE T WAVE ABNORMALITY- HIGH LATERAL LEADS BORDERLINE ECG COMPARED TO ECG 12/24/2022 09:26:51 NO SIGNIFICANT CHANGES Electronically Signed On 04-04-2023 11:22:30 CDT by Igor Damon D.O.
--- NOTE | ~2023-04-04 | XR_ITS ---
XR abdomen/kub 1V 04/04/2023 10:52 Indication: Pleurodynia Procedure: KUB Comparison: 09/04/2021 Findings: Bowel gas pattern nonobstructive. There are multiple radiodensities in the upper abdomen, p resumably bowel content. No definite renal stones. There is atherosclerosis in the pelvis. Moderate l ower thoracic and lumbar spondylosis. Moderate osteoarthritis of the hips. Nonobstructive bowel gas p attern. Impression: 1: No acute abdominal abnormality. Reviewed, dictated and finalized at location A. Impression: 1: No acute abdominal abnormality.
--- NOTE | ~2023-04-04 | XR_ITS ---
XR chest 2V DATE: 04/04/2023 10:52 INDICATION: Pleural chest pain TECHNIQUE: PA and lateral views COMPARISON: 12/24/2022 AP chest FINDINGS: Normal heart size. There is aortic ectasia and tortuosity. No hilar or mediastinal enlargem ent. Moderate hyperinflation. No pulmonary infiltrate or consolidation, pleural effusion or pulmonary vasc ular congestion or pneumothorax is detected. Diffuse idiopathic skeletal hyperostosis of the thoracic spine. IMPRESSION: No active cardiopulmonary disease Reviewed, dictated and finalized at location L.
== END 2023-04-04 10:32 | disposition home or self-care (01) ==
PROVIDERS: PCP Family Medicine; Visit Provider Family Medicine
DX: R10.9 Unspecified abdominal pain (principal); R07.81 Pleurodynia
CPT/HCPCS: 71046; 74018; 93005

== ENCOUNTER 2023-06-03 18:13 | Emergency (ER) | payer MEDICARE, SELFPAY ==
--- NOTE | ~2023-06-03 | CT_ITS ---
EXAMINATION: CT brain wo con DATE: 06/03/2023 19:29 INDICATION: Headache, hx of Bleed . TECHNIQUE: Computed tomography (CT) of the head was performed without intravenous contrast. The mA wa s adjusted according to patient size. Iterative reconstruction technique was employed. The dose-lengt h product was 605.33 mGy-cm. COMPARISON: 12/24/2022. FINDINGS: No acute intracranial hemorrhage or acute extra-axial fluid collection. Small bilateral chronic sligh tly hyperdense extra-axial collections. No hydrocephalus, mass, or herniation. No acute ischemic infarct. Unremarkable dural venous sinus attenuation. No acute osseous abnormality. The aerated spaces are clear. Small bilateral chronic slightly hyperdense extra-axial collections, likely representing either chron ic subdural hematomas or subdural hygromas. Mild atrophy. Bilateral maxillary sinus surgery. IMPRESSION: No acute intracranial process. Reviewed, dictated and finalized at location K. [employer]ATOR
[2023-06-03 18:14] VITALS: BP 158/92; PULSE 70; RESP 20; TEMP 36.4; O2SAT 98
[2023-06-03 18:28] VITALS: BP 138/70; PULSE 79; RESP 17; O2SAT 99
[2023-06-03 19:01] VITALS: BP 101/84; PULSE 72; O2SAT 98
--- NOTE | 2023-06-03 19:25 | PC.NURSE ---
Report given to Dominique RASHID, all questions answered
--- NOTE | 2023-06-03 19:47 | ED.GENADULT ---
HPI - General Adult General Chief complaint: Headache Stated complaint: headache Time Seen by Provider: 06/03/23 19:01 History of Present Illness HPI narrative: This is a 77-year-old male presenting with a headache. Patient describes headache on the top of his head, throbbing 2/10 that is worse with leaning forward and coughing. Patient has had some sinus congestion lately. Patient came to ED because he had a embolization of his and have a performed 3 months ago and has been getting four-week CT head to ensure resolution. No fever, chills, chest pain, BRYCE, abdominal pain or neurologic deficits. Related Data Home Medications Medication Instructions Recorded Confirmed multivitamin 1 tablet PO DAILY 06/17/20 05/06/23 omeprazole 40 mg capsule,delayed 40 mg PO DAILY 06/17/20 05/06/23 release finasteride 5 mg tablet 5 mg PO DAILY 07/05/22 05/06/23 Allergies Allergy/AdvReac Type Severity Reaction Status Date / Time amoxicillin [From Augmentin] AdvReac Intermediate Shakiness Verified 06/03/23 18:28 clavulanic acid AdvReac Intermediate Shakiness Verified 06/03/23 18:28 [From Augmentin] hydrocodone [From Vicodin] AdvReac Itching Verified 06/03/23 18:28 PMFSH Past Medical History Medical History Achilles tendonosis of right lower extremity Bilateral renal stones BPH (benign prostatic hyperplasia) Brain bleed that is currently being monitored for the last 8 months Chronic GERD Chronic pain of right heel Exostosis of right posterior calcaneus Foot pain, right History of nephrolithotomy with removal of calculi Laryngeal cancer Melanoma Osteoarthritis Rheumatoid arthritis Surgical History Surgical History H/O removal of testicle H/O shoulder surgery H/O vasectomy Family History Family History Other Heart disease Hypertension Social History Social History Smoking packs per day: 1.5 Smoking cigarettes per day: 30.0 Years smoked: 37 Smoking pack-years: 55.50 Smoking status: Former smoker Tobacco type: cigarettes Second hand tobacco smoke exposure: No Smoking end date: 06/03/95 Additional smoking assessment comments: QUIT 1994 Alcohol intake: current Drinks per week: 1 Alcohol use details: 2 A MONTH Substance use: current Substance use type: marijuana Other substance usage details: 2X A MONTH, DENIZ Lack of Transportation: No Lack of Food: Never True Current Housing: I Have Housing Concerned About Future Housing: No Difficulty Paying Gas/Electric Bills: No Difficulty Paying for Meds: No Currently Unemployed: No Education: High School Diploma/GED Difficulty w/ Childcare or Family Care: YES Living arrangements: alone Occupation/Education: retired Spiritual care concerns: No Exam Narrative: APPEARANCE: No apparent distress. Well-appearing Head: atraumatic. EYES: EOMI, NOSE: Atraumatic NECK: Trachea midline, soft supple RESPIRATORY: No increased rate of breathing CARDIOVASCULAR: RRR, ABDOMINAL: Non-distended MUSCULOSKELETAl: No obvious deformities NEURO: Alert. Cranial nerves 2-12 grossly intact. Sensation light touch, motor function cerebellar function intact for 4 extremities. Gait exam was normal. SKIN:: Warm, dry. Normal color PSYCHIATRIC: Normal affect Course Vital Signs Vital signs: Vital Signs Temperature 97.6 F 06/03/23 18:14 Pulse Rate 70 06/03/23 18:14 Respiratory Rate 20 06/03/23 18:14 Blood Pressure 158/92 H 06/03/23 18:14 Pulse Oximetry 98 06/03/23 18:14 Oxygen Delivery Room Air 06/03/23 18:14 Temperature 97.6 F 06/03/23 18:14 Pulse Rate 72 06/03/23 19:01 Respiratory Rate 17 06/03/23 18:28 Blood Pressure 101/84 06/03/23 19:01 Pulse Oximetry 98 06/03/23 19:01
[2023-06-03 20:16] VITALS: BP 125/84; PULSE 69; RESP 18; O2SAT 100
[2023-06-03] MEDS: ACETAMINOPHEN 500 MG TABLET 1000 MG PO (21:15)
[2023-06-03 21:20] VITALS: BP 146/88; PULSE 72; RESP 18; O2SAT 100
== END 2023-06-03 21:19 | disposition home or self-care (01) ==
PROVIDERS: Emergency Provider Emergency Medicine; PCP Family Medicine
DX: R51.9 Headache, unspecified (principal); N40.0 Benign prostatic hyperplasia without lower urinary tract symptoms; K21.9 Gastro-esophageal reflux disease without esophagitis; M06.9 Rheumatoid arthritis, unspecified; M19.90 Unspecified osteoarthritis, unspecified site; Z85.21 Personal history of malignant neoplasm of larynx; Z85.820 Personal history of malignant melanoma of skin; Z87.442 Personal history of urinary calculi; Z87.891 Personal history of nicotine dependence
CPT/HCPCS: 70450; 99284; A9270

== ENCOUNTER 2023-07-08 11:03 | Outpatient (CLI) | payer MEDICARE, SELFPAY ==
[2023-07-08 18:21] LABS: Basophils Percent Auto 0.7 % (0.2-1.2); Eosinophils Absolute Auto 0.3 K/mm3 (0-0.3); Eosinophils Percent Auto 5.7 % (0-4.4); Hematocrit 48.6 % (42.0-52.0); Hemoglobin 15.9 g/dL (14.0-18.0); Immature Granulocyte Absolute 0.02 K/mm3 (0.00-0.031); Immature Granulocyte Percent A 0.3 % (0-0.5); Lymphocytes Absolute Auto 1.22 K/mm3 (0.9-3.2); Lymphocytes Percent Auto 20.9 % (18.3-44.2); Mean Corpuscular HGB Conc 32.7 g/dl (32-36); Mean Corpuscular Hemoglobin 30.6 pg (26-34); Mean Corpuscular Volume 93.6 fl (80-100); Mean Platelet Volume 11.2 fl (7.4-10.4); Monocytes Absolute Auto 0.4 K/mm3 (0.1-0.6); Monocytes Percent Auto 7.5 % (2.6-8.5); Neutrophils Absolute Auto 3.8 K/mm3 (1.3-6.7); Neutrophils Percent Auto 64.9 % (45.5-73.1); Platelet Count Result 141 k/mm3 (150-375); Red Blood Count 5.19 M/mm3 (4.6-6.20); Red Cell Distribution Width 14.1 % (11.5-14.5); White Blood Count 5.8 K/mm3 (4.5-10.0)
[2023-07-08 18:38] LABS: Hemoglobin A1C 5.2 % (<5.7)
[2023-07-08 18:54] LABS: Alanine Aminotransferase 22 U/L (6-50); Alkaline Phosphatase 70 U/L (38-126); Anion Gap 7 mmol/L (8-16); Aspartate Amino Transferase 26 U/L (17-59); Bilirubin,Total 0.6 mg/dL (0.2-1.3); Blood Urea Nitrogen 21 mg/dL (9-20); Calcium 9.2 mg/dL (8.4-10.2); Carbon Dioxide 29 mmol/L (22-30); Chloride 106 mmol/L (98-107); Cholesterol 160 mg/dL (0-200); Estimated Glomerular Filt Rate > 60; Glucose 107 mg/dL (65-110); HDL Direct 31 mg/dL; Potassium 4.2 mmol/L (3.4-5.0); Sodium 142 mmol/L (137-145); Triglycerides 320 mg/dL (<150)
[2023-07-08 19:05] LABS: LDL Cholesterol Direct 99 mg/dL
[2023-07-08 19:23] LABS: Prostate Specific Antigen 0.6 ng/mL (< OR = 4.0)
== END 2023-07-08 11:04 | disposition home or self-care (01) ==
PROVIDERS: PCP Family Medicine; Visit Provider Family Medicine
DX: D72.829 Elevated white blood cell count, unspecified (principal); G25.81 Restless legs syndrome; K21.9 Gastro-esophageal reflux disease without esophagitis; M06.9 Rheumatoid arthritis, unspecified; N20.0 Calculus of kidney; N40.0 Benign prostatic hyperplasia without lower urinary tract symptoms; R73.09 Other abnormal glucose; R07.89 Other chest pain; Z12.5 Encounter for screening for malignant neoplasm of prostate
CPT/HCPCS: 36415; 80053; 80061; 83036; 84153; 85025; G0103

== ENCOUNTER 2023-08-14 14:11 | Outpatient (CLI) | payer MEDICARE, SELFPAY ==
--- NOTE | 2023-08-14 14:33 | ECHO_ITS ---
Patient Info Name: Samuel Sanchez Age: 78 years : 1945 Gender: Male Ht: 73 in Wt: 221 lbs BSA: 2.29 m2 HR: 76 bpm BP: 120 / 74 mmHg Technical Quality: Fair Exam Date: 08/14/2023 2:37 PM Exam Location: Echo Lab Patient Status: Outpatient Admit Date: 08/14/2023 Staff Ordering Physician: Igor Damon DO Company Laborer: Attending Provider: Igor Damon DO Referring Physician: Nelson ALBA; Exam Type: CA echo doppler color flow Study Info Indications R01.1 - Cardiac murmur, unspecified Complete two-dimensional, color flow and Doppler transthoracic echocardiogram is performed. Summary 1. Complete two-dimensional, color flow and Doppler transthoracic echocardiogram is performed. 2. Left ventricular chamber dimension is normal. 3. Left ventricular systolic function is normal, estimated at 55-60%. 4. The left ventricular diastolic function is grade I diastolic dysfunction. 5. E/e' 5 is not elevated. 6. Left atrial chamber dimension is mildly enlarged. 7. Right atrial chamber dimension is mildly enlarged. 8. The aortic valve is not well visualized. Cannot determine number of aortic valve leaflets. 9. There is severe aortic valve sclerosis. 10. There is moderate aortic valve stenosis based on a peak velocity of 255 cm/s, mean gradient of 12 mmHg, and aortic valve area of 1.2 cm2. 11. There is mild mitral valve regurgitation. 12. No pulmonary hypertension, estimated pulmonary arterial systolic pressure is 24 mmHg. Left Ventricle E/e' 5 is not elevated. Left ventricular chamber dimension is normal. Left ventricular systolic function is normal, estimated at 55-60%. The left ventricular diastolic function is grade I diastolic dysfunction. Right Ventricle Right ventricular chamber dimension is normal. Right ventricular systolic function is normal. Left Atria Left atrial chamber dimension is mildly enlarged. Right Atria Right atrial chamber dimension is mildly enlarged. Aortic Valve The aortic valve is not well visualized. Cannot determine number of aortic valve leaflets. There is severe aortic valve sclerosis. There is moderate aortic valve stenosis based on a peak velocity of 255 cm/s, mean gradient of 12 mmHg, and aortic valve area of 1.2 cm2. There is no aortic valve regurgitation. Pulmonic Valve There is no pulmonic regurgitation. Mitral Valve There is no mitral valve stenosis. There is mild mitral valve regurgitation. Tricuspid Valve There is no tricuspid valve regurgitation. No pulmonary hypertension, estimated pulmonary arterial systolic pressure is 24 mmHg. Pericardium/Pleural There is no pericardial effusion. Inferior Vena Cava Normal inferior vena cava with >50% collapse upon inspiration consistent with normal right atrial pressure, 5 mmHg. Aorta The aortic root size at the sinus of Valsalva is normal. Left Ventricular Outflow Tract Name Value Normal LVOT 2D LVOT Diameter 2.2 cm LVOT Doppler LVOT Peak Gradient 2 mmHg LVOT Mean Gradient 1 mmHg LVOT VTI 17 cm LVOT VTI/AV VTI Ratio 0.3 LVOT Stroke Volume 63 ml LV
== END 2023-08-14 14:12 | disposition home or self-care (01) ==
PROVIDERS: PCP Family Medicine; Visit Provider Internal Medicine Cardiovascular Disease
DX: R93.1 Abnormal findings on diagnostic imaging of heart and coronary circulation (principal); I35.8 Other nonrheumatic aortic valve disorders; I35.0 Nonrheumatic aortic (valve) stenosis; I34.0 Nonrheumatic mitral (valve) insufficiency
CPT/HCPCS: 93306

== ENCOUNTER 2023-11-01 14:56 | Emergency (ER) | payer MEDICARE, SELFPAY ==
[2023-11-01] VITALS (7 sets, daily range): BP systolic 111–133; BP diastolic 68–90; PULSE 60–78; RESP 16–20; TEMP 36.5–36.6; O2SAT 96–100
--- NOTE | ~2023-11-01 | XR_ITS ---
EXAMINATION: XR chest 2V 11/01/2023 16:21 INDICATION: Upper respiratory infection. Cough. PROCEDURE: 2 view chest COMPARISON: Comparison to multiple prior studies sequentially, with oldest reviewed study dated 12/24. FINDINGS: The lungs are clear. The cardiomediastinal silhouette is within normal limits. There are no pleural effusions. There is no pneumothorax suspected. IMPRESSION: 1: NO ACUTE CARDIOPULMONARY DISEASE. Reviewed, dictated and finalized at location B.
[2023-11-01 15:44] LABS: Basophils Percent Auto 0.6 % (0.2-1.2); Eosinophils Absolute Auto 0.4 K/mm3 (0-0.3); Eosinophils Percent Auto 6.6 % (0-4.4); Hematocrit 44.9 % (42.0-52.0); Hemoglobin 15.2 g/dL (14.0-18.0); Immature Granulocyte Absolute 0.02 K/mm3 (0.00-0.031); Immature Granulocyte Percent A 0.3 % (0-0.5); Lymphocytes Absolute Auto 1.48 K/mm3 (0.9-3.2); Mean Corpuscular HGB Conc 33.9 g/dl (32-36); Mean Corpuscular Hemoglobin 31.1 pg (26-34); Mean Corpuscular Volume 91.8 fl (80-100); Mean Platelet Volume 10.7 fl (7.4-10.4); Monocytes Absolute Auto 0.4 K/mm3 (0.1-0.6); Monocytes Percent Auto 6.8 % (2.6-8.5); Neutrophils Absolute Auto 3.8 K/mm3 (1.3-6.7); Neutrophils Percent Auto 61.7 % (45.5-73.1); Platelet Count Result 149 k/mm3 (150-375); Red Blood Count 4.89 M/mm3 (4.6-6.20); Red Cell Distribution Width 13.1 % (11.5-14.5); White Blood Count 6.2 K/mm3 (4.5-10.0)
[2023-11-01 15:50] LABS: Influenza A QL RT-PCR Negative (Negative); Influenza B QL RT-PCR Negative (Negative); RSV RNA, RT-PCR Negative (Negative); SARS-CoV-2 RNA PCR Negative (Negative)
[2023-11-01 15:56] LABS: Anion Gap 9 mmol/L (4-12); Blood Urea Nitrogen 22 mg/dL (9-20); Calcium 8.6 mg/dL (8.4-10.2); Carbon Dioxide 22 mmol/L (22-30); Chloride 111 mmol/L (98-107); Estimated CRCL calculation 52 ml/min; Estimated Glomerular Filt Rate > 60; Glucose 106 mg/dL (65-110); Potassium 3.4 mmol/L (3.4-5.0); Sodium 142 mmol/L (137-145)
--- NOTE | 2023-11-01 17:59 | ED.URI ---
HPI - URI/Sore Throat General Chief Complaint: Upper Respiratory Infection Stated Complaint: cough Time Seen by Provider: 11/01/23 15:32 History of Present Illness HPI Narrative: This is an 78-year-old male, treated with levofloxacin for pneumonia 1 week ago who presents emergency department complaining of persistent cough. The patient denies sputum a or bleeding with cough. He denies shortness of breath or chest pain. He has no other complaints at this time. Related Data Home Medications Medication Instructions Recorded Confirmed multivitamin 1 tablet PO DAILY 06/17/20 08/08/23 finasteride 5 mg tablet 5 mg PO DAILY 07/05/22 08/08/23 omeprazole 40 mg capsule,delayed 40 mg PO BID 07/24/23 08/08/23 release omega 0-miq-kit-fish oil 1,000 mg 1 cap PO BID 08/08/23 08/08/23 (120 mg-180 mg) capsule (Fish Oil) Allergies Allergy/AdvReac Type Severity Reaction Status Date / Time amoxicillin [From Augmentin] AdvReac Intermediate Shakiness Verified 11/01/23 14:57 clavulanic acid AdvReac Intermediate Shakiness Verified 11/01/23 14:57 [From Augmentin] hydrocodone [From Vicodin] AdvReac Itching Verified 11/01/23 14:57 perfume Allergy Unknown Cough Uncoded 11/01/23 14:57 Review of Systems Review of Systems: All systems reviewed & are unremarkable except as noted in HPI and below PMFSH Past Medical History Medical History Achilles tendonosis of right lower extremity Bilateral renal stones BPH (benign prostatic hyperplasia) Brain bleed that is currently being monitored for the last 8 months Chronic GERD Chronic pain of right heel Exostosis of right posterior calcaneus Foot pain, right History of nephrolithotomy with removal of calculi Laryngeal cancer Melanoma Osteoarthritis Rheumatoid arthritis Surgical History Surgical History H/O removal of testicle H/O shoulder surgery H/O vasectomy Family History Family History Other Heart disease Hypertension Social History Social History Smoking packs per day: 1.5 Smoking cigarettes per day: 30.0 Years smoked: 37 Smoking pack-years: 55.50 Smoking status: Former smoker Tobacco type: cigarettes Second hand tobacco smoke exposure: No Smoking end date: 06/03/95 Additional smoking assessment comments: QUIT 1993 Alcohol intake: current Drinks per week: 1 Alcohol use details: 2 A MONTH Substance use: current Substance use type: marijuana Other substance usage details: 2X A MONTH, GUMMYS Do You Feel Safe in your Home?: Yes Lack of Transportation: No Lack of Food: Never True Current Housing: I Have Housing Concerned About Future Housing: No Difficulty Paying Gas/Electric Bills: No Difficulty Paying for Meds: No Currently Unemployed: No Education: High School Diploma/GED Difficulty w/ Childcare or Family Care: YES Living arrangements: alone Occupation/Education: retired Spiritual care concerns: No Exam Narrative: GENERAL: Well-developed, well-nourished, and in no acute distress. HEAD: Normocephalic, atraumatic. EYES: PERRLA and EOMI. CHEST: Rhonchi in the right lower lung kitchen. Good aeration. No respiratory distress. No wheezes or rales HEART: Regular rate and rhythm. No murmur heard. Normal peripheral pulses. ABDOMEN: Soft, nontender, nondistended, normal active bowel sounds. EXTREMITIES: Normal range of motion. No edema. SKIN: Warm, dry, no rash. NEURO: Alert and oriented x3. No focal deficit. Moving all 4 limbs spontaneously PSYCH: Normal mood and affect. Course Course Emergency Course: 17:40 - CBC unremarkable. BMP unremarkable. The patient tested negative for influenza, COVID and RSV. Chest x-ray not concerning for acute cardiopulmonary process. Will discharge wit
== END 2023-11-01 18:10 | disposition home or self-care (01) ==
PROVIDERS: Emergency Provider Preventive Medicine Aerospace Medicine; PCP Family Medicine
DX: R05.2 Subacute cough (principal); J18.9 Pneumonia, unspecified organism; N40.0 Benign prostatic hyperplasia without lower urinary tract symptoms; K21.9 Gastro-esophageal reflux disease without esophagitis; Z87.891 Personal history of nicotine dependence; F12.90 Cannabis use, unspecified, uncomplicated; Z20.822 Contact with and (suspected) exposure to COVID-19
CPT/HCPCS: 36415; 71046; 80048; 85025; 87637; 99283

== ENCOUNTER 2024-01-07 08:12 | Outpatient (CLI) | payer MEDICARE, SELFPAY ==
--- NOTE | ~2024-01-07 | XR_ITS ---
EXAMINATION: XR barium swallow DATE: 01/07/2024 08:50 INDICATION: Dysphagia, unspecified. TECHNIQUE: The patient drank thick barium, gas-producing crystals, and thin barium. Fluoroscopy of th e hypopharynx and esophagus was performed. Fluoroscopy exposure time was 0.3 minutes. The total numbe r of images was 203. The dose-area product was 1.788 Gy-cm^2. COMPARISON: None. FINDINGS: There is no mass or stricture of the esophagus. Esophageal motility is normal. There is no hiatal hernia. There was no gastroesophageal reflux with provocative maneuvers. IMPRESSION: 1. Normal esophagram. Reviewed, dictated and finalized at location A. IMPRESSION: 1. Normal esophagram.
== END 2024-01-07 08:13 | disposition home or self-care (01) ==
PROVIDERS: PCP Family Medicine; Visit Provider Nurse Practitioner Family
DX: K21.9 Gastro-esophageal reflux disease without esophagitis (principal)
CPT/HCPCS: 74220

== ENCOUNTER 2024-01-24 00:06 | Day surgery (SDC) | payer MEDICARE, SELFPAY ==
[2024-01-06 15:29] VITALS: BMI 28.5
[2024-01-24 08:09] VITALS: BP 138/86; PULSE 67; RESP 18; TEMP 36.1; O2SAT 98; BMI 29.3
[2024-01-24] MEDS: LACTATED RINGERS 1,000 ML 150 ML IV CONT (08:34)
--- NOTE | 2024-01-24 09:13 | PM.HPGS ---
History of Present Illness History of Present Illness Consent: Risks, benefits, and alternatives have been discussed and questions answered. Patient agrees to proceed with procedure. Chief complaint: gerd Narrative: Samuel Sanchez is a 78 year old male here for egd, h/o gerd on ppi bid, last egd about 10 years ago Review of Systems Review of Systems: All systems reviewed & are unremarkable except as noted in HPI and below PMFSH Past Medical History Medical History Achilles tendonosis of right lower extremity Bilateral renal stones BPH (benign prostatic hyperplasia) Brain bleed that is currently being monitored for the last 8 months Chronic GERD Chronic pain of right heel Exostosis of right posterior calcaneus Foot pain, right History of nephrolithotomy with removal of calculi Laryngeal cancer Melanoma Osteoarthritis Rheumatoid arthritis Surgical History Surgical History H/O removal of testicle H/O shoulder surgery H/O vasectomy Family History Family History Other Heart disease Hypertension Social History Social History Smoking packs per day: 1.5 Smoking cigarettes per day: 30.0 Years smoked: 37 Smoking pack-years: 55.50 Smoking status: Former smoker Tobacco type: cigarettes Second hand tobacco smoke exposure: No Smoking end date: 06/03/95 Additional smoking assessment comments: QUIT 1993 Alcohol intake: current Drinks per week: 1 Alcohol use details: 2 A MONTH Substance use: current Substance use type: marijuana Other substance usage details: edibles 3 times per week Do You Feel Safe in your Home?: Yes Lack of Transportation: No Lack of Food: Never True Current Housing: I Have Housing Concerned About Future Housing: No Difficulty Paying Gas/Electric Bills: No Difficulty Paying for Meds: No Currently Unemployed: No Education: High School Diploma/GED Difficulty w/ Childcare or Family Care: YES Living arrangements: alone Occupation/Education: retired Spiritual care concerns: No Meds Home Medications and Allergies Home Medications Medication Instructions Recorded Confirmed Type multivitamin 1 tablet PO DAILY 06/17/20 01/24/24 History finasteride 5 mg tablet 5 mg PO DAILY 07/05/22 01/24/24 History omega 3-mpq-rce-fish oil 1,000 mg 1 cap PO BID 08/08/23 01/24/24 History (120 mg-180 mg) capsule (Fish Oil) albuterol sulfate 90 mcg/actuation 1 puff inhalation QID PRN 11/01/23 01/24/24 Rx aerosol inhaler shortness of breath or wheezing #6.7 grams cetirizine 10 mg capsule (Zyrtec) 10 mg PO DAILY #90 caps 01/06/24 01/24/24 Rx famotidine 40 mg tablet 40 mg PO ONCE 01/06/24 01/24/24 History ipratropium bromide 42 mcg (0.06 2 spray intranasal TID #15 mL 01/06/24 01/24/24 Rx %) nasal spray ketoconazole 2 % shampoo 1 applic topical 2XW #120 mL 01/06/24 01/24/24 Rx vit C 250 mg-vit E 90 mg-zinc 40 1 tablet PO BID 01/06/24 01/24/24 History mg-copper 1 vp-crfbes-[id number] capsule (PreserVision AREDS-2) omeprazole 40 mg capsule,delayed 40 mg PO BID #60 caps 01/07/24 01/24/24 Rx release topiramate 100 mg tablet 100 mg PO DAILY #100 tabs 01/21/24 01/24/24 Rx Allergies Allergy/AdvReac Type Severity Reaction Status Date / Time amoxicillin [From Augmentin] AdvReac Intermediate Shakiness Verified 01/24/24 08:15 clavulanic acid AdvReac Intermediate Shakiness Verified 01/24/24 08:15 [From Augmentin] hydrocodone [From Vicodin] AdvReac Itching Verified 01/24/24 08:15 perfume Allergy Unknown Cough Uncoded 01/24/24 08:15 Vital Signs Vital Signs - 24 hr 01/24/24 08:09 Temperature 96.9 F L Pulse Rate 67 Respiratory Rate 18 Blood Pressure 138/86 Pulse Oximetry 98 Oxygen Delivery Room Air Exam Const:
--- NOTE | 2024-01-24 09:14 | P.PNAN_ITS ---
Anes - Initial Pre Proc Eval Procedure: Operation Date: 01/24/24 09:30 Proposed Procedures p Esophagogastroduodenoscopy - Eze Ross MD Date/Time: 01/24/24 09:14 Surgeon: Eze Ross MD Pre Op Diagnosis: gerd Patient Data Age: 78 Gender: M Height: 1.83 m Weight: 98.1 kg Last Vital Signs Temp 96.9 F L 01/24/24 08:09 Pulse 67 01/24/24 08:09 Resp 18 01/24/24 08:09 BP 138/86 01/24/24 08:09 Pulse Ox 98 01/24/24 08:09 O2 Del Method Room Air 01/24/24 08:09 Allergies Allergy/AdvReac Type Severity Reaction Status Date / Time amoxicillin [From Augmentin] AdvReac Intermediate Shakiness Verified 01/24/24 08:15 clavulanic acid AdvReac Intermediate Shakiness Verified 01/24/24 08:15 [From Augmentin] hydrocodone [From Vicodin] AdvReac Itching Verified 01/24/24 08:15 perfume Allergy Unknown Cough Uncoded 01/24/24 08:15 Home Medications Medication Instructions Recorded Confirmed Type multivitamin 1 tablet PO DAILY 06/17/20 01/24/24 History finasteride 5 mg tablet 5 mg PO DAILY 07/05/22 01/24/24 History omega 8-cod-pkz-fish oil 1,000 mg 1 cap PO BID 08/08/23 01/24/24 History (120 mg-180 mg) capsule (Fish Oil) albuterol sulfate 90 mcg/actuation 1 puff inhalation QID PRN 11/01/23 01/24/24 Rx aerosol inhaler shortness of breath or wheezing #6.7 grams cetirizine 10 mg capsule (Zyrtec) 10 mg PO DAILY #90 caps 01/06/24 01/24/24 Rx famotidine 40 mg tablet 40 mg PO ONCE 01/06/24 01/24/24 History ipratropium bromide 42 mcg (0.06 2 spray intranasal TID #15 mL 01/06/24 01/24/24 Rx %) nasal spray ketoconazole 2 % shampoo 1 applic topical 2XW #120 mL 01/06/24 01/24/24 Rx vit C 250 mg-vit E 90 mg-zinc 40 1 tablet PO BID 01/06/24 01/24/24 History mg-copper 1 nd-etphkw-pxloey capsule (PreserVision AREDS-2) omeprazole 40 mg capsule,delayed 40 mg PO BID #60 caps 01/07/24 01/24/24 Rx release topiramate 100 mg tablet 100 mg PO DAILY #100 tabs 01/21/24 01/24/24 Rx Patient hx anesthesia problems: none Family hx anesthesia problems: none Results Review: All pre-operative results and documents have been reviewed as part of the pre- operative evaluation. [facility] Past Medical History Medical History Achilles tendonosis of right lower extremity Bilateral renal stones BPH (benign prostatic hyperplasia) Brain bleed that is currently being monitored for the last 8 months Chronic GERD Chronic pain of right heel Exostosis of right posterior calcaneus Foot pain, right History of nephrolithotomy with removal of calculi Laryngeal cancer Melanoma Osteoarthritis Rheumatoid arthritis Surgical History Surgical History H/O removal of testicle H/O shoulder surgery H/O vasectomy Family History Family History Other Heart disease Hypertension Social History Social History Smoking packs per day: 1.5 Smoking cigarettes per day: 30.0 Years smoked:
[2024-01-24] MEDS: BENZOCAINE (*SP) 60 ML SPRAY CAN (HURRICAINE) 1 SPRAY MUCOUS MEM (09:19)
[2024-01-24 09:26] VITALS: BP 93/65; PULSE 70; RESP 22; O2SAT 94
[2024-01-24 09:35] VITALS: BP 100/65; PULSE 66; RESP 20; O2SAT 97
[2024-01-24 09:45] VITALS: BP 122/69; PULSE 68; RESP 196; O2SAT 98
== END 2024-01-24 10:01 | disposition home or self-care (01) ==
PROVIDERS: PCP Family Medicine; Referring Provider Family Medicine; Visit Provider Internal Medicine Gastroenterology
PROC: 0DJ08ZZ Inspection of Upper Intestinal Tract, Via Natural or Artificial Opening Endoscopic (ICD-10-PCS; CPT 43235; principal; 2024-01-24 09:30)
DX: K44.9 Diaphragmatic hernia without obstruction or gangrene (principal); K21.9 Gastro-esophageal reflux disease without esophagitis; N40.0 Benign prostatic hyperplasia without lower urinary tract symptoms; F12.90 Cannabis use, unspecified, uncomplicated; I62.9 Nontraumatic intracranial hemorrhage, unspecified; G89.29 Other chronic pain; M79.671 Pain in right foot; Z79.51 Long term (current) use of inhaled steroids; Z98.890 Other specified postprocedural states; Z87.891 Personal history of nicotine dependence; Z87.442 Personal history of urinary calculi; Z85.21 Personal history of malignant neoplasm of larynx; Z85.820 Personal history of malignant melanoma of skin; Z82.49 Family history of ischemic heart disease and other diseases of the circulatory system
CPT/HCPCS: 43239; 88305; J2704; J7120

== ENCOUNTER 2024-06-08 09:26 | Emergency (ER) | payer MEDICARE, SELFPAY ==
--- NOTE | ~2024-06-08 | XR_ITS ---
EXAMINATION: XR chest 1V portable DATE: 06/08/2024 12:28 INDICATION: Cough. Upper respiratory infection. TECHNIQUE: A single frontal view of the chest was obtained on 2 radiographs. COMPARISON: Chest 2 views 11/01/2023 FINDINGS: There is no pneumonia, pleural effusion, or pneumothorax. The heart size is normal. IMPRESSION: 1. No acute cardiopulmonary disease. Reviewed, dictated and finalized at location A. 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
[2024-06-08 09:32] VITALS: BP 144/95; PULSE 98; RESP 19; TEMP 36.6; O2SAT 100
[2024-06-08 13:58] LABS: Basophils Percent Auto 0.2 % (0.2-1.2); Eosinophils Absolute Auto 0.1 K/mm3 (0-0.3); Hematocrit 39.8 % (42.0-52.0); Hemoglobin 13.7 g/dL (14.0-18.0); Immature Granulocyte Absolute 0.03 K/mm3 (0.00-0.031); Immature Granulocyte Percent A 0.4 % (0-0.5); Lymphocytes Absolute Auto 1.18 K/mm3 (0.9-3.2); Lymphocytes Percent Auto 14.6 % (18.3-44.2); Mean Corpuscular HGB Conc 34.4 g/dl (32-36); Mean Corpuscular Hemoglobin 30.6 pg (26-34); Mean Platelet Volume 10.1 fl (7.4-10.4); Monocytes Absolute Auto 0.8 K/mm3 (0.1-0.6); Monocytes Percent Auto 9.5 % (2.6-8.5); Neutrophils Percent Auto 74.3 % (45.5-73.1); Platelet Count Result 232 k/mm3 (150-375); Red Blood Count 4.47 M/mm3 (4.6-6.20); Red Cell Distribution Width 12.9 % (11.5-14.5); White Blood Count 8.1 K/mm3 (4.5-10.0)
--- NOTE | 2024-06-08 14:08 | ED_ITS ---
HPI - URI/Sore Throat General Chief Complaint: Upper Respiratory Infection Stated Complaint: FLU, ST Cough congestion Time Seen by Provider: 06/08/24 13:37 Source: patient Mode of arrival: ambulatory Limitations: no limitations History of Present Illness HPI Narrative: Patient presents with report of flu-like symptoms of a sore throat. He has had symptoms since May 27. He states he tested positive for the flu on 06/02/2024 and has had a consistent/persistent cough. He lives with a roommate who he states also has symptoms. He has been trying lsrg-tbe-yuxiogd medications like NyQuil, Cetafloric, Tylenol. He states that his cough is dry when he forces himself to cough. He also notes that his voice is hoarse, laryngitic. No fever. He did not take Tamiflu with symptoms initially. He is also complaining of rhinorrhea, myalgias, and dizziness. He denies any underlying respiratory conditions such as COPD, asthma, etc.. Related Data Home Medications ?Medication ?Instructions ?Recorded ?Confirmed ?Last Taken ?Type multivitamin 1 tablet PO DAILY 06/17/20 02/27/24 01/22/24 History finasteride 5 mg tablet 5 mg PO DAILY 07/05/22 02/27/24 01/22/24 History omega 1-skn-fkz-fish oil 1,000 mg 1 cap PO BID 08/08/23 02/27/24 01/22/24 History (120 mg-180 mg) capsule (Fish Oil) famotidine 40 mg tablet 40 mg PO ONCE 01/06/24 02/27/24 01/22/24 History Allergies Allergy/AdvReac Type Severity Reaction Status Date / Time amoxicillin (From Augmentin) AdvReac Intermediate Shakiness Verified 03/23/24 08:40 clavulanic acid (From AdvReac Intermediate Shakiness Verified 03/23/24 08:40 Augmentin) hydrocodone (From Vicodin) AdvReac Itching Verified 03/23/24 08:40 perfume Allergy Unknown Cough Uncoded 03/23/24 08:40 PMF Past Medical History Medical History Achilles tendonosis of right lower extremity Bilateral renal stones BPH (benign prostatic hyperplasia) Brain bleed that is currently being monitored for the last 8 months Chronic GERD Chronic pain of right heel Exostosis of right posterior calcaneus Foot pain, right History of nephrolithotomy with removal of calculi Laryngeal cancer Melanoma Osteoarthritis Rheumatoid arthritis Surgical History Surgical History H/O removal of testicle H/O shoulder surgery H/O vasectomy Family History Family History Other Heart disease Hypertension Social History Social History Smoking packs per day: 1.5 Smoking cigarettes per day: 30.0 Years smoked: 37 Smoking pack-years: 55.50 Smoking status: Former smoker Tobacco type: cigarettes Second hand tobacco smoke exposure: No Smoking end date: 06/03/95 Additional smoking assessment comments: QUIT 1993 Alcohol intake: current Drinks per week: 1 Alcohol use details: 2 A MONTH Substance use: current Substance use type: marijuana Other substance usage details: edibles 3 times per week Do You Feel Safe in your Home?: Yes Lack of Transportation: No Lack of Food: Never True Current Housing: I Have Housing Concerned About Future Housing: No Difficulty Paying Gas/Electric Bills: No Difficulty Paying for Meds: No Currently Unemployed: No Education: High School Diploma/GED Difficulty w/ Childcare or Family Care: YES Living arrangements: with roommate(s) Occupation/Education: retired Spiritual care concerns: No Exam 2 Narrative: GENERAL: Well-appearing, well-nourished, and in no acute distress. HEAD: Normocephalic, atraumatic. EYES: Non injected, non icteric ENT: Nares clear, no rhinorrhea or epistaxis. Uvula midline. Posterior oropharynx with erythema but no tonsillar hypertrophy/enlargement and no exudate. NECK: Supple. No lymphadenopathy. CHEST: Speaking in full sentences. No respiratory distress. Lungs clear to auscultation bilaterally without wheezes. HEART: Regular rate and rhythm. . ABDOMEN: Soft, nondistended. EXTREMITIES: Normal range of motion. No lower extremity edema. SKIN: Warm, dry, no rash. NEURO: No focal deficits. Alert and oriented x3. PSYCH: Normal mood and affect. Course Vital Signs Vital signs: Vital Signs Temperature 97.8 F 06/08/24 09:32 Pulse Rate 98 06/08/24 09:32 Respiratory Rate 19 06/08/24 09:32 Blood Pressure 144/95 H 06/08/24 09:32 Pulse Oximetry 100 06/08/24 09:32 Oxygen Delivery Autopap 06/08/24 09:32 Temperature 97.8 F 06/08/24 09:32 Pulse Rate 91 06/08/24 16:13 Respiratory Rate 16 06/08/24 16:13 Blood Pressure 101/83 06/08/24 16:13 Pulse Oximetry 95 06/08/24 16:13 Oxygen Delivery Autopap 06/08/24 09:32 MDM - URI/Sore Throat MDM Narrative Medical decision making narrative: Patient presents with persistent cough and congestion. He states he tested positive for the flu on 06/02. Did not initially receive Tamiflu and has been trying rnsb-tly-eecsrby medications but the cough persists. In the emergency department he is afebrile with acceptable vital signs: elevated diastolic blood pressure. Otherwise patient has reassuring physical exam with lungs clear to auscultation bilaterally. Centor score negative 1 (given age) thus will not proceed with testing for strep. Patient given 1 time dose of dexamethasone as this has been shown to improve time to symptom resolution of pharyngitis. Normocytic anemia is new from previous. No leukocytosis. Patient continues to test positive for influenza A. Patient has had a cough since May 27. No evidence of pneumonia on chest x-ray and typically would not give antibiotics for bronchitis however, given the duration of symptoms and that he is 78 years old, will give short course in addition to other meds for symptom management. Received first doses of medications in the ED and others prescribed. Advised to follow-up with primary care physician and return to the emergency department with any new or worsening symptoms. Differential Diagnosis Differential diagnosis: Likely upper respiratory infection, viral infection, bronchitis, influenza, pharyngitis and other (Laryngitis, pneumonia) Lab Data Attestation: I reviewed the patient's lab results. 06/08/24 13:48 06/08/24 13:48 Labs: Lab Results 06/08/24 Range/Units 13:48 WBC 8.1 (4.5-10.0) K/mm3 RBC 4.47 L (4.6-6.20) M/mm3 Hgb 13.7 L (14.0-18.0) g/dL Hct 39.8 L (42.0-52.0) % MCV 89.0 (80-100) fl MCH 30.6 (26-34) pg MCHC 34.4 (32-36) g/dl RDW 12.9 (11.5-14.5) % Plt Count 232 D (150-375) k/mm3 MPV 10.1 (7.4-10.4) fl Immature Gran % (Auto) 0.4 (0-0.5) % Neut % (Auto) 74.3 H (45.5-73.1) % Lymph % (Auto) 14.6 L (18.3-44.2) % [place] % (Auto) 9.5 H (2.6-8.5) % Eos % (Auto) 1.0 (0-4.4) % Baso % (Auto) 0.2 (0.2-1.2) % Lymph # (Auto) 1.18 (0.9-3.2) K/mm3 [place] # (Auto) 0.8 H (0.1-0.6) K/mm3 Eos # (Auto) 0.1 (0-0.3) K/mm3 Baso # (Auto) 0.0 (0.0-0.1) K/mm3 Abs Immat Gran (auto) 0.03 (0.00-0.031) K/mm3 Absolute Neuts (auto) 6.0 (1.3-6.7) K/mm3 Absolute Nucleated RBC 0.000 (0.0-0.012) K/mm3 Nucleated RBC % 0.0 (0.0-0.2) % Sodium 140 (137-145) mmol/L Potassium 3.7 (3.4-5.0) mmol/L Chloride 106 (98-107) mmol/L Carbon Dioxide 26 (22-30) mmol/L Anion Gap 8 (4-12) mmol/L BUN 17 (9-20) mg/dL Creatinine 0.96 (0.7-1.3) mg/dL Estim Creat Clear Calc 59 ml/min Estimated GFR > 60 (59 - ) Glucose 121 H (65-110) mg/dL Calcium 8.9 (8.4-10.2) mg/dL Total Bilirubin 0.8 (0.2-1.3) mg/dL AST 93 H (17-59) U/L ALT 171 H (6-50) U/L Alkaline Phosphatase 79 (38-126) U/L Total Protein 8.0 (6.3-8.2) g/dL Albumin 3.7 (3.5-5.1) g/dL Influenza A (RT-PCR) Positive A (Negative) Influenza B (RT-PCR) Negative (Negative) RSV (RT-PCR) Negative (Negative) SARS-CoV-2 RNA (RT-PCR) Negative (Negative) Imaging Data Radiologist's impression: Impressions Chest X-Ray 06/08/24 12:31 IMPRESSION: 1. No acute cardiopulmonary disease. Discharge Plan Discharge Clinical Impression: Influenza with pharyngitis, Normocytic anemia, Influenzal bronchitis, Viral URI with cough Patient Disposition: Home, Self-Care Condition: Stable Instructions: Antibiotic Form, Pharyngitis (ED), Influenza (DC), Acute Bronchitis (ED), Anemia (ED), Acute Cough (ED) Additional Instructions: Acetaminophen/Tylenol (maximum 4000 mg per day) is safe to take with NSAIDs (ibuprofen/Motrin) for pain relief. You can also use the benzonatate/Tessalon Perles for cough. The Cepacol lozenges can help with the sore throat. You can also gargle with warm salt water. That chest x-ray does not show pneumonia. We typically do not give antibiotics for bronchitis (cough without other features of pneumonia), however will prescribe course given your age. You received your 1st dose of medications in the emergency department. The rest of been prescribed . Follow-up with primary care physician. Return to the emergency department with any new or worsening symptoms. Rest and maintain your hydration. Patient Language: [place] Island[place] Prescriptions: New benzonatate 100 mg capsule 100 mg PO BID PRN (Reason: cough) Qty: 20 0RF Sore Throat and Cough 5-7.5 mg lozenge 2 kemal PO Q4H PRN (Reason: sore throat) Qty: 18 0RF Rx Instructions: dissolve 2nd lozenge after first; do not chew doxycycline hyclate 100 mg capsule 100 mg PO DAILY Qty: 4 0RF Rx Instructions: start 06/09 (received first dose 06/08) ibuprofen 600 mg tablet 600 mg PO TID PRN (Reason: pain) Qty: 30 0RF acetaminophen 500 mg capsule 1,000 mg PO Q6H PRN (Reason: pain) Qty: 30 0RF No Action famotidine 40 mg tablet 40 mg PO ONCE ketoconazole 2 % shampoo 1 applic topical 2XW Qty: 120 0RF Zyrtec 10 mg capsule 10 mg PO DAILY Qty: 90 0RF finasteride 5 mg tablet 5 mg PO DAILY omega 0-wrn-llx-fish oil [Fish Oil] 1,000 mg (120 mg-180 mg) capsule 1 cap PO BID multivitamin Tablet 1 tablet PO DAILY albuterol sulfate 90 mcg/actuation HFA aerosol inhaler 1 puff inhalation QID PRN (Reason: shortness of breath or wheezing) Qty: 6.7 0RF omeprazole 40 mg capsule,delayed release(DR/EC) See Rx Instructions .ROUTE .COMPLEX Qty: 120 5RF Dose Instruction: TAKE 1 CAPSULE BY MOUTH TWICE DAILY Rx Instructions: TAKE 1 CAPSULE BY MOUTH TWICE DAILY Follow-up/Referrals: Grey Tomas MD [Primary Care Provider] - Time of Disposition: 14:58
[2024-06-08 14:09] LABS: Alanine Aminotransferase 171 U/L (6-50); Albumin Level 3.7 g/dL (3.5-5.1); Alkaline Phosphatase 79 U/L (38-126); Anion Gap 8 mmol/L (4-12); Aspartate Amino Transferase 93 U/L (17-59); Bilirubin,Total 0.8 mg/dL (0.2-1.3); Blood Urea Nitrogen 17 mg/dL (9-20); Calcium 8.9 mg/dL (8.4-10.2); Carbon Dioxide 26 mmol/L (22-30); Chloride 106 mmol/L (98-107); Estimated CRCL calculation 59 ml/min; Estimated Glomerular Filt Rate > 60; Glucose 121 mg/dL (65-110); Potassium 3.7 mmol/L (3.4-5.0); Sodium 140 mmol/L (137-145)
[2024-06-08 14:33] LABS: Influenza A QL RT-PCR Positive (Negative); Influenza B QL RT-PCR Negative (Negative); RSV RNA, RT-PCR Negative (Negative); SARS-CoV-2 RNA PCR Negative (Negative)
[2024-06-08] MEDS: BENZONATATE 100 MG CAPSULE PO (15:36)
[2024-06-08] MEDS: guaiFENesin/DEXTROMETHORPHAN 10 ML UDC PO (15:36)
[2024-06-08] MEDS: ACETAMINOPHEN 500 MG TABLET 1000 MG PO (15:37)
[2024-06-08] MEDS: BENZOCAINE/MENTHOL (*BKC) 18 EA LOZENGE 1 LOZENGE PO (15:37)
[2024-06-08] MEDS: KETOROLAC 30 MG/ML VIAL (*BKC) 15 MG IM (15:37)
[2024-06-08] MEDS: dexAMETHasone 2 MG TABLET 10 MG PO (15:37)
[2024-06-08] MEDS: DOXYCYCLINE HYCLATE 100 MG TABLET PO (15:38)
[2024-06-08 16:13] VITALS: BP 101/83; PULSE 91; RESP 16; O2SAT 95
--- OUTSIDE RECORDS SUMMARY | 2024-06-14 16:43 | XMS_ITS | Encounter Summary ---
Author Organization [facility] Address [address] [address] Care Team Providers Care Slitter Helper Name Role Phone Unavailable Primary Care Provider Unavailabl e Encounter Details Date Type Department Care Team (Late st Contact Info) Description 08/29/2020 Orders Only 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
--- OUTSIDE RECORDS SUMMARY | 2024-06-14 16:43 | XMS_ITS | Continuity of Care Document ---
Author Organization [facility] Address [address] [place] [id number] Care Team Providers Care Hazmat Tanker Driver Name Role Phone Grey Tomas Primary Care Physician [phone] Encounter [facility] [id number] Date(s): 06/02/24 - 06/02/[address] [address]- Encounter Diagnosis Influenza A(Discharge Diagnosis) - 06/02/24 Discharge Disposition: Home or Self Care Attending Physician: Loyd Capone MD Referring Physician: Loyd Capone MD Allergies, Adverse Reactions, Alerts No Known Allergies Medications finasteride 5 mg oral tablet = 1 tab, Oral, Daily, # 90 tab, 0 Refill(s) Start Date: 12/15/23 Status: Ordered omeprazole 40 mg, Daily, 0 Refill(s) Start Date: 06/02/24 Status: Ordered Problem List Diagnosis Diagnosis Type Effective Dates Health Status Clini ann Service Informant Influenza A Discharge Diagnosis 06/02/24 Results Laboratory List Name Date Coronavirus (COVID-19)/Flu/RSV (GeneXper t) (Respiratory 4 Plex (GeneXpert)) 06/02/24 Strep A (ID NOW) 06/02/24 Most recent to oldest [Reference Range]: 1 Strep A (IDNOW) [Negative] Negative 1 (06/02/24 11:52 AM) Coronavirus (COVID-19) PCR (GeneXpert) [ Negative] Negative *NA* (06/02/24 11:52 AM) Flu A PCR (GeneXpert) [Negative] Positiv e *ABN* (06/02/24 11:52 AM) Flu B PCR (GeneXpert) [Negative] Negativ e *NA* (06/02/24 11:52 AM) RSV PCR (GeneXpert) [Negative] Negative *NA* (06/02/24 11:52 AM) 1Interpretive Data: *A MOLECULAR PROCEDURE WAS PREFORMED. NEW GUIDELINES STATE THAT A NEGATIVE RESULT DOES NOT REQUIRE A CONFIRMATORY PROCEDURE. Radiology Reports * Exam Date Time Procedure Performing Provider Status 06/02/24 11:57 AM XR Chest 1 View Eric Griffin; Aut h (Verified) Notes: (XR Chest 1 View) Reason For Exam: COUGH XR Chest 1 View Exam: XR Chest 1 View Ordering Provider: Loyd Capone Order Date: 06/02/2024 History: COUGH COMPARISON: Chest radiograph performed 26 August 2022. FINDINGS: The lungs are well-expanded without pneumothorax, effusion, or consolidation. The heart is normal in size. The visualized osseous structures are normal for age. IMPRESSION: No radiographic evidence of acute pulmonary disease. MASTER Final Signed by: Won Morales MD Signed (Electronic Signature): 06/02/2024 12:04 pm Vital Signs Most recent to oldest [Reference Range]: 1 2 Level of Consciousness Alert (06/02/24 10:45 AM) Orientation Assessment Oriented x 4 (06/02/24 10:45 AM) Temperature Temporal Artery [36.3-37.8 degC] 37.1 degC (06/02/24 10:45 AM) Peripheral Pulse Rate [60-100 bpm] 82 bp m (06/02/24 1:00 PM) 89 bpm (06/02/24 10:45 AM) Respiratory Rate [14-20 br/min] 16 br/mi n (06/02/24 10:45 AM) Blood Pressure [90-120/60-80 mmHg] 143/9 1mmHg *HI* (06/02/24 1:00 PM) 146/95mmHg *HI* (06/02/24 10:45 AM) Mean Arterial Pressure, Cuff [70-110 mmHg] 110 mmHg (06/02/24 1:00 PM) 112 mmHg *HI* (06/02/24 10:45 AM) Social History Social History Type Response Smoking Status Former smoker, quit more than 30 days ago entered on: 12/15/23 Sex Male Sex Representation Male (finding) Hospital Discharge Instructions Patient Education 06/02/2024 13:31:01 Influenza, Adult Influenza, Adult Influenza, also called the flu, is a viral infection that mainly affects the respiratory tract. This includes the lungs, nose, and throat. The flu spreads easily from person to person (is contagious). It causes common cold symptoms, along with high fever and body aches. What are the causes? This condition is caused by the influenza virus. You can get the virus by: ??? Breathing in droplets that are in the air from an infected person's cough or sneeze. ??? Touching something that has the virus on it (has been contaminated) and then touching your mouth, nose, or eyes. What increases the risk? The following factors may make you more likely to get the flu: ??? Not washing or sanitizing your hands often. ??? Having close contact with many people during cold and flu season. ??? Touching your mouth, eyes, or nose without first washing or sanitizing your hands. ??? Not getting an annual flu shot. You may have a higher risk for the flu, including serious problems, such as a lung infection (pneumonia), if you: ??? Are older than 65. ??? Are . ??? Have a weakened disease-fighting system (immune system). This includes people who have HIV or AIDS, are on chemotherapy, or are taking medicines that reduce (suppress) the immune system. ??? Have a long-term (chronic) illness, such as heart disease, kidney disease, diabetes, or lung disease. ??? Have a liver disorder. ??? Are severely overweight (morbidly obese). ??? Have anemia. ??? Have asthma. What are the signs or symptoms? Symptoms of this condition usually begin suddenly and last 4???14 days. These may include: ??? Fever and chills. ??? Headaches, body aches, or muscle aches. ??? Sore throat. ??? Cough. ??? Runny or stuffy (congested) nose. ??? Chest discomfort. ??? Poor appetite. ??? Weakness or fatigue. ??? Dizziness. ??? Nausea or vomiting. How is this diagnosed? This condition may be diagnosed based on: ??? Your symptoms and medical history. ??? A physical exam. ??? Swabbing your nose or throat and testing the fluid for the influenza virus. How is this treated? If the flu is diagnosed early, you can be treated with antiviral medicine that is given by mouth (orally) or through an IV. This can help reduce how severe the illness is and how long it lasts. Taking care of yourself at home can help relieve symptoms. Your health care provider may recommend: ??? Taking fiii-uuo-vvbjwuz medicines. ??? Drinking plenty of fluids. In many cases, the flu goes away on its own. If you have severe symptoms or complications, you may be treated in a hospital. Follow these instructions at home: Activity ??? Rest as needed and get plenty of sleep. ??? Stay home from work or school as told by your health care provider. Unless you are visiting your health care provider, avoid leaving home until your fever has been gone for 24 hours without taking medicine. Eating and drinking ??? Take an oral rehydration solution (ORS). This is a drink that is sold at pharmacies and retail stores. ??? Drink enough fluid to keep your urine pale yellow. ??? Drink clear fluids in small amounts as you are able. Clear fluids include water, ice chips, fruit juice mixed with water, and low-calorie sports drinks. ??? Eat bland, jzxt-ar-leyegd foods in small amounts as you are able. These foods include bananas, applesauce, rice, lean meats, toast, and crackers. ??? Avoid drinking fluids that contain a lot of sugar or caffeine, such as energy drinks, regular sports drinks, and soda. ??? Avoid alcohol. ??? Avoid spicy or fatty foods. General instructions ??? Take nang-xgt-atkqrbm and prescription medicines only as told by your health care provider. ??? Use a cool mist humidifier to add humidity to the air in your home. This can make it easier to breathe. ??? When using a cool mist humidifier, clean it daily. Empty the water and replace it with clean water. ??? Cover your mouth and nose when you cough or sneeze. ??? Wash your hands with soap and water often and for at least 20 seconds, especially after you cough or sneeze. If soap and water are not available, use alcohol-based hand press operator apprentice. ??? Keep all follow-up visits. This is important. How is this prevented? Get an annual flu shot. This is usually available in late summer, fall, or winter. Ask your health care provider when you should get your flu shot. ??? Avoid contact with people who are sick during cold and flu season. This is generally fall and winter. Contact a health care provider if: ??? You develop new symptoms. ??? You have: ??? Chest pain. ??? Diarrhea. ??? A fever. ??? Your cough gets worse. ??? You produce more mucus. ??? You feel nauseous or you vomit. Get help right away if you: ??? Develop shortness of breath or have difficulty breathing. ??? Have skin or nails that turn a bluish color. ??? Have severe pain or stiffness in your neck. ??? Develop a sudden headache or sudden pain in your face or ear. ??? Cannot eat or drink without vomiting. These symptoms may represent a serious problem that is an emergency. Do not wait to see if the symptoms will go away. Get medical help right away. Call your local emergency services (911 in the [place] Do not drive yourself to the hospital. Summary ??? Influenza, also called the flu, is a viral infection that primarily affects your respiratory tract. ??? Symptoms of the flu usually begin suddenly and last 4???14 days. ??? Getting an annual flu shot is the best way to prevent getting the flu. ??? Stay home from work or school as told by your health care provider. Unless you are visiting your health care provider, avoid leaving home until your fever has been gone for 24 hours without taking medicine. ??? Keep all follow-up visits. This is important. This information is not intended to replace advice given to you by your health care provider. Make sure you discuss any questions you have with your health care provider. Document Revised: 01/06/2021 Document Reviewed: 01/06/2021 [employer] Patient Education ?? 2022 [employer] Follow Up Care 06/02/2024 10:09:07 With:Grey Tomas Address: When: only if needed Patient Care team information Care Team Personnel Name: Grey Tomas Position: No Access Member Role: Informed Provider Address: [address] Insurance Providers Guarantor name: PASQUALE HUFFMAN [employer] Plan Information #: 1 Payer: [facility] Medicare Solutions Member Number: [id number] Policy Number: NA Health Plan Information #: 2 Payer: [facility] [employer] Member Number: [id number] Policy Number: NA
--- OUTSIDE RECORDS SUMMARY | 2024-06-14 16:43 | XMS_ITS | Encounter Summary ---
Author Organization [facility] Address [address] [facility] [place] [address] Care Team Providers Care Welder Gas Name Role Phone Viraj Romeo Primary Care Provider [phone] Reason for Visit * Reason Comments Pain Abdominal Left upper side Diarrhea Encounter Details Date Type Department Care Team (Late st Contact Info) Description 04/04/2022 3:00 PM CDT Office Visit [facility] [place] [address] [address] [address] [place] [address] [address] [address] Change in bowel function (Primary Dx); Pena's esophagus without dysplasia; Adenomatous polyp of colon, unspecified part of colon; Gastroesophageal reflux disease without esophagitis; Flank pain Social History Tobacco Use Types Packs/Day Years Used Date Smoking Tobacco: Former Smokeless Tobacco: Never Alcohol Use Standard Drinks/Week Comments Yes 1 (1 standard drink = 0.6 oz pur e alcohol) Sex and Gender Information Value Date Recorded Sex Assigned at Male 08/22/2021 3:52 PM CDT Gender Identity Male 08/22/2021 3:52 PM CDT Sexual Orientation Not on file COVID-19 Exposure Response Date Recorded In the last 10 days, have yo u been in contact with someone who was confirmed or suspected to have Coronavirus/COVID-19? No / Unsure 04/04/2022 2:58 PM CDT documented as of this encounter Last Filed Vital Signs Vital Sign Reading Time Taken Comments Blood Pressure 116/83 04/04/2022 3:06 PM CDT Pulse 71 04/04/2022 3:06 PM CDT Temperature - - Respiratory Rate 18 04/04/2022 3:06 PM CDT Oxygen Saturation 96% 04/04/2022 3:06 PM CDT Inhaled Oxygen Concentration - - Weight 99.8 kg (220 lb) 04/04/2022 3:06 PM CDT Height - - Body Mass Index 29.03 11/08/2021 8:58 AM CDT documented in this encounter Patient Instructions * Patient Instructions* Zelda Batista APRN-CNP - 04/04/2022 4:07 PM CDT Increase omeprazole to 40mg twice daily. I have sent a new prescription to your pharmacy. Follow strict lactose free diet for 2 weeks. 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 The patient was last seen for his upper endoscopy and colonoscopy in November,. His last colonoscopy demonstrated small adenomatous colon polyps, internal hemorrhoids and diverticulosis. His EGD findings were c/w short segment pena's esophagus. Esophageal biopsies showed mild nonspecific inflammation with no IM or dysplasia. At that time he was having breakthrough acid reflux on omeprazole, so he was subsequently recommended to start Dexilant 60 mg q.day. Unfortunately, this medication was too expensive, so he was started on Prevacid 30 mg b.i.d.. He took this medication for acouple days but reports it caused side effects of headaches and nausea, so he discontinued it. He is now back on omeprazole 40 mg q.day and famotidine 40 mg q.h.s. and reports breakthrough reflux 2-3times per week after eating. He does not follow a strict GERD diet. He reports no nausea or vomiting. He reports left side/flank pain since his procedures in November. The pain is intermittent. He does report a history of large kidney stones requiring surgery. Most days he has a bowel movement daily. He does report occasional straining w/ a BM. Other times he reports loose stools after eating. He also has excessive gas. He is unsure of any foods that trigger his symptoms. There is no blood in the stool. He does have dairy on daily basis, but is unsure ifthis exacerbates his symptoms. PAST HISTORY: Past Medical History: Diagnosis Date ??? Enlarged prostate ??? GERD (gastroesophageal reflux disease) ??? Kidney stones ??? Vocal cord cancer Past Surgical History: Procedure Laterality Date ??? BICEPS TENODESIS, SHOULDER Left ??? COLONOSCOPY 03/14/2020 COLONOSCOPY SCREEN ??? COLONOSCOPY 11/08/2021 COLONOSCOPY SCREEN ??? ENDOSCOPY, UPPER 03/14/2020 ESOPHAGOGASTRODUODENOSCOPY (EGD) DIAGNOSTIC ??? ENDOSCOPY, UPPER 11/08/2021 ESOPHAGOGASTRODUODENOSCOPY (EGD) DIAGNOSTIC ??? Myringotomy Left 1960 ??? Orchiectomy testicle removed ??? Rotator Cuff Repair Right ??? SURGICAL HISTORY OF vocal cord surgery for cancer x 3 ??? Vasectomy Social History Socioeconomic History ??? Marital status: Spouse name: Not on file ??? Number of children: Not on file ??? Years of education: Not on file ??? Highest education level: Not on file Occupational History ??? Not on file Tobacco Use ??? Smoking status: Former ??? Smokeless tobacco: Never Substance and Sexual Activity ??? Alcohol use: Yes Alcohol/week: 1.0 - 2.0 standard drink Types: 1 - 2 Standard drinks or equivalent per week ??? Drug use: Yes Types: Marijuana Comment: last used last week ??? Sexual activity: Not on file Other Topics Concern ??? Not on file Social History Narrative ??? Not on file Social Determinants of Health Financial Resource Strain: Not on file Food Insecurity: Not on file Transportation Needs: Not on file Physical Activity: Not on file Stress: Not on file Social Connections: Not on file Intimate Partner Violence: Not on file Housing Stability: Not on file No family history on file. ALLERGIES: Allergies Allergen Reactions ??? Hydrocodone Itching ??? Vicodin [Hydrocodone-Acetaminophen] Itching ??? Perfume [Other] Shortness of Breath and Cough MEDICATIONS: Samuel Sanchez has a current medication list which includes the following prescription(s): albuterol hfa, biotin, famotidine, lansoprazole, methotrexate, preservision areds 2, multivitamin daily,omeprazole, ropinirole, clenpiq, tamsulosin, and tizanidine. REVIEW OF SYSTEMS: Per HPI unless noted below: General ROS: negative Psychological ROS: negative Ophthalmic ROS: negative ENT ROS: negative Allergy and Immunology ROS: negative Hematological and Lymphatic ROS: negative Endocrine ROS: negative Respiratory ROS: no cough, shortness of breath, or wheezing Cardiovascular ROS: no chest pain or dyspnea on exertion Gastrointestinal ROS: per HPI Genito-Urinary ROS: no dysuria, trouble voiding, or hematuria Musculoskeletal ROS: negative Neurological ROS: no TIA or stroke symptoms Dermatological ROS: negative PHYSICAL EXAM: BP 116/83 Pulse 71 Resp 18 Wt 99.8 kg (220 lb) SpO2 96% Physical Exam: Gen: Alert, oriented, no distress Skin: Unremarkable HEENT: normal Neck: normal Lungs: CTA bilaterally CV: RRR, no murmurs heard Abd: Soft, non tender, non distended, normal bowel sounds, no organomegaly Extr: No edema, no obvious inflammatory arthritis Neuro: No focal deficits LABS: No results for input(s): SODIUM, POTASSIUM, CHLORIDE, CO2, BUN, CREATININE, GLUCOSE in the last 22758 hours. No results for input(s): WBC, HGB, PLTCOUNT, MCV, INR in the last 00279 hours. Invalid input(s): 5 No results for input(s): ALBUMIN, ALKPHOS, TBIL, AST, ALT in the last 71359 hours. Invalid input(s): PROTEINTOTAL No results for input(s): AMYLASE, LIPASE, FERRITIN, IRON in the last 91634 hours. 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 1. GERD with short-segment Pena's esophagus Recent EGD biopsies were negative for Pena's and dysplasia. Has breakthrough reflux on omeprazole 40 mg once daily. Tried Prevacid b.i.d. but developed side effects, so this medication was discontinued. He is not following a strict GERD diet. -Pt will increase his omeprazole to 40 mg b.i.d. for 12 weeks and then reduce back to once daily -Strict GERD diet -f/u one year or sooner if symptoms are not well controlled 2. Left flank pain The pain is not reproducible and is not associated with eating or a bowel movement. Patient has a hx of kidney stones. I am suspicious he has a recurrent kidney stone.I recommend he f/u w/ his urologist. 3. Excessive gas Symptoms suspicious for a possible carbohydrate advise the patient to follow a strict lactose-free diet for 2 weeks. If symptoms are not improving he will contact the office. 4. Irregular bowel pattern Recent colonoscopy was unremarkable. He has a bowel movement most days, but will occasionally have more frequent bowel movements after eating. There is no blood in the stool, urgency, or nocturnal diarrhea. Patient will follow a strict lactose-free diet for 2 weeks. If bowel pattern does not improve, could consider a trial of fiber. Scribed by Zelda Batista NP for Dr. Thao I have discussed the above recommendations and their risks, benefits, and alternatives, with the patient and any family present, and all agreed with the plan. All questions were answered. documented in this encounter Plan of Treatment Not on file documented as of this encounter Visit Diagnoses Diagnosis Change in bowel function- Primary Other symptoms involving digestive system Pena's esophagus without dysplasia Pena's esophagus Adenomatous polyp of colon, unspecified part of colon Gastroesophageal reflux disease without esophagitis Esophageal reflux Flank pain Abdominal pain, unspecified site documented in this encounter Care Teams Welder Gas Relationship Specialty Start Date End Date Viraj Romeo PA [address] [place] [address] PCP - General 12/28/20 documented as of this encounter
--- OUTSIDE RECORDS SUMMARY | 2024-06-14 16:43 | XMS_ITS | Encounter Summary ---
Author Organization [facility] Address [address] [facility] [place] [address] Care Team Providers Care Teasel Gig Operator Name Role Phone Unavailable Primary Care Provider Unavailabl e Reason for Visit * Reason Onset Date Comments Nausea 12/07/2020 Encounter Details Date Type Department Care Team (Late st Contact Info) Description 12/07/2020 Telephone [facility] Pixelated [facility] [address] [facility], [address] [place] [address] Zelda Batista APRN-OIL ANALYST [address] [facility] [address] [place] [address] Nausea Social History Tobacco Use Types Packs/Day Years Used Date Smoking Tobacco: Never Smokeless Tobacco: Never Alcohol Use Standard Drinks/Week Comments Yes 0 (1 standard drink = 0.6 oz pur e alcohol) Sex and Gender Information Value Date Recorded Sex Assigned at Male 08/22/2021 3:52 PM CDT Gender Identity Male 08/22/2021 3:52 PM CDT Sexual Orientation Not on file documented as of this encounter Miscellaneous Notes * Telephone Encounter - Bethanie Trinh RN - 12/08/2020 12:20 PM CDT Recommendations called to patient. States is doing better today. * Telephone Encounter - Zelda Batista APRN-CNP - 12/07/2020 3:35 PM CDT His symptoms will likely continue to improve. Make sure he is following a bland diet. He should continue current medications and have him call with an update early next week. If he still having symptoms at that time we can discuss getting him in for an office visit. * Telephone Encounter - Darcie Johansen RN - 12/07/2020 2:57 PM CDT Called c/o nausea and vomiting starting yesterday.. Vomited 6 times. Also experiencing upper abdominal pain. Today nausea dissipated and no further vomiting. Takes omeprazole 40mg daily and famotidine 40mg at HS. States he has been under a lot of stress lately and also had kidney stones removed on 12/02grs in [place]. documented in this encounter Plan of Treatment Not on file documented as of this encounter Visit Diagnoses Not on filedocumented in this encounter
--- OUTSIDE RECORDS SUMMARY | 2024-06-14 16:43 | XMS_ITS | Clinical Summary ---
Author Organization [facility] Address [address] [place] [address] Phone Care Team Providers Care Regional Trainer Name Role Phone GRACIE ESQUEDA DO [phone] Reason for Visit and Chief Complaint The Chief Complaint is: patient has had cough, MA, FREDERICK, sore throat, congestion, and runny nose since Saturday Problems Includes: Problems addressed during this encounter and other active Problems No Active Problems Plan of Treatment - Return to the clinic if condition worsens or new symptoms arise - Last Documented On 06/01/2022 11:57AM ; [facility] - Patient will call for appointment as needed - Last Documented On 06/01/2022 11:57AM ; [facility] Instructions to patient Instructions for patient Last Documented On 2 11:53AM ; [facility] Assessments Includes: Assessments from this encounter Findings - Acute upper respiratory infection - Last Documented On 06/01/2022 11:57AM ; [facility] Instructions Includes: Instructions from this encounter Instructions to patient Instructions for patient Last Documented On 11:53AM ; [facility] Medical Equipment - Implanted Devices Includes: Current Devices No Medical Equipment Recorded Medications Includes: Medications discussed during this encounter and other current Medications Current Medications (continue as prescribed) Methotrexate 2.5 MG Oral Tablet 05/31/2022 Provider: Diagnosis: Last Documented On 11:55AM By BRANDO SANCHEZ ; [facility] Finasteride 5 MG Oral Tablet 05/28/2022 Provider: FRANK LOPEZ Diagnosis: Last Documented On 11:55AM By BRANDO SANCHEZ ; [facility] Omeprazole 40 MG Oral Capsule Delayed Release 05/10/20 Provider: Diagnosis: Last Documented On 11:55AM By BRANDO SANCHEZ ; [facility] oxyCODONE HCl 5 MG Oral Tablet 05/07/2022 Provider: Diagnosis: Last Documented On 11:55AM By BRANDO SANCHEZ ; [facility] Fluticasone Propionate 50 MC G/ACT Nasal Suspension 04/12/2022 Provider: FAWN IBARRA PA-C Diagnosis: Last Documented On 11:55AM By BRANDO SANCHEZ ; [facility] Montelukast Sodium 10 MG Oral Tablet 04/12/2022 Prov ider: FAWN IBARRA PA-C Diagnosis: Last Documented On 11:55AM By BRANDO SANCHEZ ; [facility] rOPINIRole HCl 2 MG Oral Tablet 03/28/2022 Provider: FAWN IBARRA PA-C Diagnosis: Last Documented On 11:56AM By BRANDO SANCHEZ ; [facility] Medications Administered Includes: Administered Medications from this encounter No Administered Medications Recorded Vital Signs Includes: Vital Signs from this encounter Vital Name 06/01/2022 11:38A Pulse Rate-Sitting (bpm) 64 Temp-Oral (F) 98 Weight (lb) 221 Oxygen Saturation (%) 98 Last Documented: On 06/01/2022 11:39A M ; [facility] Results Includes: Results discussed during this encounter SARS COVID-19 FLU A [facility] Ordered by DAISHA ARIAS RADIO MACHINIST on 05/05 Collected: Reported: 06/01/2022 11:48 Last Documented On 11:49AM ; [facility] Reviewed on 06/01/2022; All test results are final unless otherwise noted. COVID neg N (Normal) Last Documented On 11:49AM ; [facility] INFLUENZA A neg (Negative) N (Normal) Last Documented On 11:49AM ; [facility] INFLUENZA B neg (negative) N (Normal) Last Documented On 11:49AM ; [facility] INT. QC ACCEPTABLE? yes N (Normal) Last Documented On 11:49AM ; [facility] LOT # & EXP. DATE [id number] 04/11/23 N (Normal) Last Documented On 2 11:49AM ; [facility] [[email or web address]] History of Present Illness Includes: History of Present Illness from this encounter HPI PASQUALE HUFFMAN is a 76 year old male. - Allergy list reviewed - Medication list reviewed - Duration of symptoms - Previously well - No fever - No chills - Headache associated with head congestion - No sinus pain - No sinus pressure - No swollen glands in the neck - No itching of the eyes - No discharge from the eyes - Nasal discharge - Nasal passage blockage (stuffiness) - Sore throat - No earache - The ears do not feel pressured - The ears do not feel full - No discharge from the ears - No postnasal drip - No sneezing - No itchy throat - No chest pain or discomfort - No palpitations - Cough - Not feeling congested in the chest - No dyspnea - No wheezing - No rash Pt to clinic for above symptoms x 3 days he has been exposed to covid he has been taking kristie and benadryl Social History No Social History Recorded - Smoking Status Unknown Procedures and Surgical History Includes: Procedures from this encounter Procedures Code Diagnosis Performing Provider Service L ocation Service Date plan of care reviewed and agreed to by the patient Last Documented On 2 11:53AM ; [facility] Patient verbalizes understanding Last Documented On 2 11:53AM ; [facility] Increase fluids Last Documented On 2 11:53AM ; [facility] [[email or web address]] Clinical summary provided to patient Last Documented On 2 11:53AM ; [facility] [[email or web address]] Medical History Includes: Medical History addressed during this encounter No Medical History Recorded Family History Includes: Family History addressed during this encounter Description Last Updated Family history unchanged 06/01/2022 Last Documented On 2 11:57AM ; [facility] [[email or web address]] Review of Systems Includes: Review of Systems from this encounter Systemic: No fever and no chills. Head: Headache. Otolaryngeal: Nasal discharge and sore throat. Pulmonary: Cough. Gastrointestinal: No nausea and no vomiting. Mental Status Includes: Mental Status from this encounter Description Oriented to time, place, and person Functional Status Includes: Functional Status from this encounter No Functional Status Recorded Physical Exam Includes: Physical Exam from this encounter Allergies Includes: Active Allergies No Known Allergies Encounters Encounter Provider Location Date Check-In Time Check-Out Time Diagnosis COVID SICK VISIT- NEW PATIENT BRANDO DELGADO RADIO MACHINIST-BC [facility] 06/01/20 22 11:32AM 11:52AM Upper Respiratory Infection Acute Insurance Includes: Active Insurance Policies Plan Name Member ID Group # Subscriber Relationship Effect marcelino Dates 1 - [facility]/MEDICARE ADV/AARP [id number] PASQUALE HUFFMAN Self Clinical Notes Includes: Clinical Notes from this encounter No Clinical Notes Recorded
--- OUTSIDE RECORDS SUMMARY | 2024-06-14 16:43 | XMS_ITS | Encounter Summary ---
Author Organization [facility] Address [address] [place] [address] Care Team Providers Care Nurses' Association Executive Director Name Role Phone Viraj Romeo Primary Care Provider [phone] Reason for Visit * Reason Onset Date Comments Results 11/13/2021 Egc colon Encounter Details Date Type Department Care Team (Late st Contact Info) Description 11/13/2021 Telephone [facility] [place] [address] [place] [id number] [place] [id number] [address] [address] Results (Egc colon) Social History Tobacco Use Types Packs/Day Years [...] encounter Miscellaneous Notes * Telephone Encounter - Darcie Johansen RN - 11/13/2021 9:07 AM CDT Gave results to patient. On recall for ov 1 yr. Sent rx ----- Message from Loyd Thao MD sent at 11/10/2021 12:32 PM CDT ----- Esophageal biopsies normal. No eosinophilia. No Pollard's. No dysplasia. 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 q.a.m. as patient is having breakthrough reflux symptoms Office visit for follow-up in 1 year. Call if reflux symptoms are not well controlled after 6 weeks documented in this encounter Plan of Treatment Not on file documented as of this encounter Visit Diagnoses Diagnosis Gastroesophageal reflux disease without esophagitis- Primary Esophageal reflux documented in this encounter Care Teams Nurses' Association Executive Director Relationship Specialty Start Date End Date Viraj Romeo PA [address] [place] [address] PCP - General 12/28/20 documented as of this encounter
--- OUTSIDE RECORDS SUMMARY | 2024-06-14 16:43 | XMS_ITS | Encounter Summary ---
Author Organization [facility] Address [address] [place] [address] Care Team Providers Care Patient Registration Manager Name Role Phone Viraj Romeo Primary Care Provider [phone] Encounter Details Date Type Department Care Team (Latest Contact Info) Description 04/04/2022 Travel Social History Tobacco Use Types Packs/Day Years [...] PM CDT documented as of this encounter Plan of Treatment Not on file documented as of this encounter Visit Diagnoses Not on filedocumented in this encounter Care Teams Patient Registration Manager Relationship Specialty Start Date End Date Vriaj Romeo PA [address] [place] [address] PCP - General 12/28/20 documented as of this encounter
--- OUTSIDE RECORDS SUMMARY | 2024-06-14 16:43 | XMS_ITS | Referral Summary ---
Author Organization [facility] Address [address] [place] [address] Care Team Providers Care Ic Designer Standard Cells Name Role Phone Viraj Romeo Primary Care Provider [phone] Source Comments [facility],non-owned Affiliates and Associated Physician Practices is amultiple site organization consisting of ambulatory clinics and hospital sitesin [place], [place] and [place]. This disclosure is being madepursuant to the Care Everywhere program and may not contain all information available regarding this patient. Last updated 18.[facility] Allergies Active Allergy Reactions Criticality Noted Date Comments Hydrocodone Itching Low 02/18/2012 Perfume [Other] Shortness of Breath,Cough High 05/04 Hydrocodone-Acetaminophen Itching Low 05/17/2011 Medications * Be aware that medications may not be up to date on this document. Alwaysverify current medications with the patient. Medication Sig Dispensed Refills Start Date End Date Status multivitamin daily (THERAGRAN) tablet Take 1 tablet by mouth once daily 300 MG Active famotidine (PEPCID) 40 MG tablet Take 40 mg by mouth once daily 12/21/2019 Active methotrexate 2.5 MG tablet Take 6 tablets by mouth every 7 days 02/02/2020 Active tamsulosin (FLOMAX) 0.4 MG capsule Take 0.4 mg by mouth once daily 04/03/2018 Active Multiple Vitamins-Minerals (PRESERVISION AREDS 2) capsule Take 1 capsule by mouth 2 times daily Active lansoprazole (PREVACID) 30 MG capsule Take 1 (one) capsule by mouth 2 times daily, before breakfast and supper TO IMPROVE HEARTBURN SYMPTOMS 60 capsule 2 12/19/2021 Active albuterol HFA (Proventil; Ventolin; Proair) 108 (90 Base) MCG/ACT inhaler INHALE 1 TO 2 PUFFS EVERY 4 TO 6 HOURS NEEDED FOR DIFFICULTY BREATHING 06/26/2021 Active rOPINIRole (Requip) 2 MG tablet TAKE 1 TABLET BY MOUTH EVERY DAY AT BEDTIME 03/28/2022 Active omeprazole (PriLOSEC) 40 MG capsule TAKE 1 CAPSULE BY MOUTH DAILY BEFORE BREAKFAST 100 capsule 03/11/2023 Active Active Problems Problem Noted Date Diagnosed Date 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 Adenomatous polyp of colon 04/04/2022 Gastroesophageal reflux disease without esophagi tis 04/04/2022 Flank pain 04/04/2022 Abnormal weight loss 03/11/2020 Change in bowel function 03/11/2020 Migraine 06/10/2012 Social History Tobacco Use Types Packs/Day Years Used Date Smoking Tobacco: Former Smokeless Tobacco: Never Alcohol Use Standard Drinks/Week Comments Yes 1 (1 standard drink = 0.6 oz pur e alcohol) Sex and Gender Information Value Date Recorded Sex Assigned at Male 08/22/2021 3:52 PM CDT Gender Identity Male 08/22/2021 3:52 PM CDT Sexual Orientation Not on file Last Filed Vital Signs Vital Sign Reading Time Taken Comments Blood Pressure 116/83 04/04/2022 3:06 PM CDT Pulse 71 04/04/2022 3:06 PM CDT Temperature 36.6 ??C (97.8 ??F) 11/08/2021 10:12 AM C DT Respiratory Rate 18 04/04/2022 3:06 PM CDT Oxygen Saturation 96% 04/04/2022 3:06 PM CDT Inhaled Oxygen Concentration - - Weight 99.8 kg (220 lb) 04/04/2022 3:06 PM CDT Height 185.4 cm (6' 1 ) 11/08/2021 8:58 AM CDT Body Mass Index 29.03 11/08/2021 8:58 AM CDT Plan of Treatment Not on file Care Teams Ic Designer Standard Cells Relationship Specialty Start Date End Date Viraj Romeo PA [address] [place] [address] PCP - General 12/28/20
--- OUTSIDE RECORDS SUMMARY | 2024-06-14 16:43 | XMS_ITS | Encounter Summary ---
Author Organization [facility] Address [address] [place] [address] Care Team Providers Care Bioinformatics Software Engineer Name Role Phone Viraj Romeo Primary Care Provider [phone] Reason for Visit * Reason Comments Refill Request Encounter Details Date Type Department Care Team ([facility] Contact Info) Description 12/29/2022 Refill [facility] Medical [facility] - [address] [address] Zelda Batista, REFERENCE [facility] [id number] [place] [phone] Refill Request Social History Tobacco Use Types Packs/Day Years [...] on filedocumented in this encounter Care Teams Bioinformatics Software Engineer Relationship Specialty Start Date End Date Viraj Romeo PA [address] [place] [address] PCP - General 12/28/20 documented as of this encounter
--- OUTSIDE RECORDS SUMMARY | 2024-06-14 16:43 | XMS_ITS ---
Author Organization [facility] Address [address] [place] [address] Phone Care Team Providers Care Etiquette Teacher Name Role Phone GRACIE ESQUEDA DO [phone] Problems Includes: Active, inactive, and resolved Problems No Active Problems Plan of Treatment Findings Encounter Date Ordered patient will call [facility] appointment as needed COVID SICK VISIT- NEW PATIENT with BRANDO DELGADO WEED CONTROLLER-BC 06/01/2022 Last Documented On 2 11:57AM ; [facility] Ordered return to the clinic if condition worsens or new symptoms arise COVID SICK VISIT- NEW PATIENT with BRANDO DELGADO WEED CONTROLLER-BC 06/01/2022 Last Documented On 2 11:57AM ; [facility] Instructions to patient Instructions for patient Last Documented On 2 11:53AM ; [facility] Assessments Includes: Assessments for all patient encounters Findings Encounter Date Acute upper respiratory infection COVID SICK VISIT- NEW PATIENT with BRANDO DELGADO WEED CONTROLLER-BC 06/01/2022 Last Documented On 2 11:57AM ; [facility] Instructions Includes: Instructions for all patient encounters Instructions to patient Instructions for patient Last Documented On 2 11:53AM ; [facility] Medical Equipment - Implanted Devices Includes: Current and historical Devices No Medical Equipment Recorded Medications Includes: Current and historical Medications Current Medications (continue as prescribed) Methotrexate 2.5 MG Oral Tablet 05/31/2022 Provider: Diagnosis: Last Documented On 2 11:55AM By BRANDO NARAYANAN ; [facility] Finasteride 5 MG Oral Tablet 05/28/2022 Provider: FRANK LOPEZ Diagnosis: Last Documented On 11:55AM By BRANDO DELGADO WEED CONTROLLER- ; [facility] Omeprazole 40 MG Oral Capsule Delayed Release 05/10/20 Provider: Diagnosis: Last Documented On 2 11:55AM By BRANDO SANCHEZ ; [facility] oxyCODONE HCl 5 MG Oral Tablet 05/07/2022 Provider: Diagnosis: Last Documented On 2 11:55AM By BRANDO SANCHEZ ; [facility] Fluticasone Propionate 50 MC G/ACT Nasal Suspension 04/12/2022 Provider: FAWN IBARRA PA-C Diagnosis: Last Documented On 2 11:55AM By BRANDO SANCHEZ ; [facility] Montelukast Sodium 10 MG Oral Tablet 04/12/2022 Prov ider: FAWN IBARRA PA-C Diagnosis: Last Documented On 2 11:55AM By BRANDO SANCHEZ ; [facility] rOPINIRole HCl 2 MG Oral Tablet 03/28/2022 Provider: FAWN IBARRA PA-C Diagnosis: Last Documented On 2 11:56AM By BRANDO SANCHEZ ; [facility] Medications Administered Includes: Administered Medications in patient's chart No Administered Medications Recorded Results Includes: Results from 06/14/2023 through 06/14/2024 No Results Recorded For Specified Dates History of Present Illness History of Present Illness not supported for this document type No History of Present Illness Recorded Social History No Social History Recorded - Smoking Status Unknown Medical History Includes: Medical History in patient's chart No Medical History Recorded Family History Includes: Family History in patient's chart Description Last Updated Family history unchanged 06/01/2022 Last Documented On 2 11:57AM ; [facility] Review of Systems Review of Systems not supported for this document type No Review of Systems Recorded Mental Status Description Oriented to time, place, and person Functional Status No Functional Status Recorded Physical Exam Physical Exam not supported for this document type No Physical Exam Recorded Allergies Includes: Active, inactive, and resolved Allergies No Known Allergies Insurance Includes: Active Insurance Policies Plan Name Member ID Group # Subscriber Relationship Effect marcelino Dates 1 - [facility]/MEDICARE ADV/AARP [id number] PASQUALE Rojas Clinical Notes Includes: Signed Clinical Notes starting from 06/22/2022 No Clinical Notes Recorded
--- OUTSIDE RECORDS SUMMARY | 2024-06-14 16:43 | XMS_ITS | Encounter Summary ---
Author Organization [facility] Address [address] [place] [address] Care Team Providers Care Medical Front Desk Specialist Name Role Phone Viraj Romeo Primary Care Provider [phone] Reason for Visit * Auth/Cert Specialty Diagnoses / Procedures Referred By Alcira forrest Referred To Contact Procedures COLONOSCOPY SCREEN ESOPHAGOGASTRODUODENOSCOPY (EGD) DIAGNOSTIC Referral ID Status Reason Start Date Expiration Date Visits Re quested Visits Authorized [id number] 1 1 Encounter Details Date Type Department Care Team (Late st Contact Info) Description 11/08/2021 9:45 AM CDT - 11/08/2021 10:30 AM CDT Surgery [facility] [address] [place] [address] [place] [id number] [facility] [address] [address] COLONOSCOPY SCREEN Surgery Details Date/Time Status Location OR Service Patient Class Case Class Case Type Trauma Case? 11/08/2021 9:45 AM Posted [facility] 01 Gastroenterology Surgery Day Care Elective > 5 days Panel 1 Procedure LRB Anes Op Region Wound Class Comments COLONOSCOPY SCREEN MAC Clean Conta minated ESOPHAGOGASTRODUODENOSCOPY ( EGD) DIAGNOSTIC MAC Clean Contaminated Surgeon Surgeon Role Service Panel Loyd Thao MD Primary Gastroenterology 1 documented in this encounter Social History Tobacco Use Types Packs/Day Years Used Date Smoking Tobacco: Former Smokeless Tobacco: Never Alcohol Use Standard Drinks/Week Comments Yes 1 (1 standard drink = 0.6 oz pur e alcohol) Sex and Gender Information Value Date Recorded Sex Assigned at Male 08/22/2021 3:52 PM CDT Gender Identity Male 08/22/2021 3:52 PM CDT Sexual Orientation Not on file documented as of this encounter Last Filed Vital Signs Vital Sign Reading Time Taken Comments Blood Pressure 121/82 11/08/2021 10:26 AM CDT Pulse 61 11/08/2021 10:27 AM CDT Temperature 36.6 ??C (97.8 ??F) 11/08/2021 10:12 AM C DT Respiratory Rate 9 11/08/2021 10:27 AM CDT Oxygen Saturation 93% 11/08/2021 10:27 AM CDT Inhaled Oxygen Concentration - - Weight 93 kg (205 lb) 11/08/2021 8:58 AM CDT Height 185.4 cm (6' 1 ) 11/08/2021 8:58 AM CDT Body Mass Index 27.05 11/08/2021 8:58 AM CDT documented in this encounter Medications at Time of Discharge Medication Sig Dispensed Refills Start Date End Date albuterol HFA (Proventil; Ventolin; Proair) 108 (90 Base) MCG/ACT inhaler INHALE 1 TO 2 PUFFS EVERY 4 TO 6 HOURS NEEDED FOR DIFFICULTY BREATHING 06/26/2021 famotidine (PEPCID) 40 MG tablet Take 40 mg by mouth once daily 12/21/2019 methotrexate 2.5 MG tablet Take 6 tablets by mouth every 7 days 02/02/2020 Multiple Vitamins-Minerals (PRESERVISION AREDS 2) capsule Take 1 capsule by mouth 2 times daily multivitamin daily (THERAGRAN) tablet Take 1 tablet by mouth once daily 300 MG tamsulosin (FLOMAX) 0.4 MG capsule Take 0.4 mg by mouth once daily 04/03/2018 Biotin 5 MG TBDP Take 5,000 mcg by mouth once daily 04/04/2022 omeprazole (PRILOSEC) 40 MG capsuleIndications:Bar rett's esophagus without dysplasia TAKE 1 CAPSULE BY MOUTH ONCE DAILY 90 capsule 2 08/28/2021 11/13/2021 sodium picosulfate - magnesium oxide - anhydrous citric acid (CLENPIQ) solution Take 320 mL by mouth as directed 320 mL 10/20/2021 04/04/2022 tiZANidine (ZANAFLEX) 4 MG tablet TAKE 1 TABLET BY MOUTH EVERY 8 HOURS NEEDED FOR MUSCLE SPASM 30 tablet 05/13/2020 04/04/2022 documented as of this encounter H&P Notes * Loyd Thao MD - 11/08/2021 9:34 AM CDT ENDOSCOPY PRE-PROCEDURE MEDICAL HISTORY & PHYSICAL Samuel Sanchez 76 year old male BP 139/92 Pulse 74 Temp 98.7 ??F (37.1 ??C) (Oral) Resp 18 Ht 1.854 m (6' 1 ) Wt 93 kg (205 lb) SpO2 98% BMI 27.05 kg/m2 History: Past Medical History: Diagnosis Date ??? Enlarged prostate ??? GERD (gastroesophageal reflux disease) ??? Kidney stones ??? Vocal cord cancer Allergies Allergen Reactions ??? Hydrocodone Itching ??? Vicodin [Hydrocodone-Acetaminophen] Itching ??? Perfume [Other] Shortness of Breath and Cough Medications Prior to Admission Medication Sig Dispense Refill ??? Biotin 5 MG TBDP Take 5,000 mcg by mouth once daily ??? famotidine (PEPCID) 40 MG tablet Take 40 mg by mouth once daily ??? methotrexate 2.5 MG tablet Take 6 tablets by mouth every 7 days ??? Multiple Vitamins-Minerals (PRESERVISION AREDS 2) capsule Take 1 capsule by mouth 2 times daily ??? multivitamin daily (THERAGRAN) tablet Take 1 tablet by mouth once daily 300 MG ??? omeprazole (PRILOSEC) 40 MG capsule TAKE 1 CAPSULE BY MOUTH ONCE DAILY 90 capsule 2 ??? sodium picosulfate - magnesium oxide - anhydrous citric acid (CLENPIQ) solution Take 320 mL by mouth as directed (Patient not taking: Reported on 11/08/2021) 320 mL 0 ??? tamsulosin (FLOMAX) 0.4 MG capsule Take 0.4 mg by mouth once daily ??? tiZANidine (ZANAFLEX) 4 MG tablet TAKE 1 TABLET BY MOUTH EVERY 8 HOURS NEEDED FOR MUSCLE SPASM 30 tablet 0 Current Facility-Administered Medications Medication Dose Route Frequency Provider Last Rate Last Admin ??? 0.9% NaCl infusion Intravenous Continuous Loyd Thao MD 20 mL/hr at 06/08/22 0900 New Bag at 11/08/21 0900 Physicial Exam: General exam no acute distress Cardiovascular regular rate and rhythm no murmurs Lungs clear to auscultation bilaterally Abdomen soft nontender nondistended positive bowel sounds ASA Evaluation and Anesthesia Plan: Anesthesia administered per Anesthesia Department Indication(s) for Procedure: GERD, Barretts esophagus and Colon Screen - high risk Procedure Planned: Colonoscopy and EGD Loyd Thao MD documented in this encounter Plan of Treatment Not on file documented as of this encounter Procedures Procedure Name Priority Date/Time Associated Diagnosis Comments PATHOLOGY TISSUE EXAM (STL) Routine 11/08/2021 9:49 AM CDT Diagnosis deferred HELICOBACTER PYLORI UREASE (STL) STAT 11/08/2021 9:48 AM CDT Diagnosis deferred IN ED EGD FLEX TRANSORAL DX 11/08/2021 9:45 AM CDT COLONOSCOPY SCREEN 11/08/2021 9: 45 AM CDT EGD Routine 11/08/2021 8:53 AM CDT Gastroesophageal reflux disease without esophagitis ENDOSCOPY, COLON, SCREENING Routine 11/08/2021 8:52 AM CDT Special screening for malignant neoplasms, colon documented in this encounter Results * PATHOLOGY TISSUE EXAM (STL) (11/08/2021 9:49 AM CDT) Case Report Surgical Pathology Report ? Case: [id number] ? Authorizing Provider: ??Loyd Thao MD ? Collected: ? 11/08/2021 09:49 AM ? Ordering Location: ? [facility] ?Received: ?11/08/2021 10:33 AM ? Pathologist: ? Zully Luevano MD ? Specimens: ?? A) - Esophageal Biopsy ? B) - Polyp Colon, hot snare x5 ? 11/10/2021 12:14 PM CDT [facility] Final Diagnosis A. Esophagus, biopsy: -- Squamocolumnar mucosa with mild, nonspecific chronic inflammation -- No intestinal metaplasia, dysplasia, or malignancy B. 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 11/10/2021 12:14 PM CDT [facility] Gross Description Received in formalin labeled with patient's name and esophageal biopsy are 5 fragments of massey soft tissue measuring 1 mm. Submitted entirely in cassette A1. Received in formalin labeled with patient's name and colon polyp are 5 fragments of massey soft tissue measuring 5 x 4 x 2 mm in aggregate. Submitted entirely in cassette B1. 11/10/2021 12:14 PM CDT [facility] Microscopic Description Histologic sections of the esophageal biopsy (Part A) show multiple fragments of squamocolumnar mucosa with mild subepithelial lymphoplasmacytic inflammation. Level sections show a rare subepithelial eosinophil and a gland containing few degenerating cells with the differential including neutrophils verses apoptotic epithelial cells. These findings are nonspecific and may be associated with reflux esophagitis. There is no evidence of intestinal metaplasia or dysplasia. The Part B biopsy shows two fragments of tubular adenoma. There are also multiple fragments of colonic mucosa with serrated crypts, some of which demonstrate dilation at the base, which is consistent with a sessile serrated adenoma. 11/10/2021 12:14 PM CDT [facility] Disclaimer All histochemical and/or immunohistochemical results are interpreted with controls that demonstrate appropriate staining reactions before reporting results. Note on use of immunocytochemistry reagents: This test was developed and its performance characteristic determined by [facility], Department of Laboratory Medicine. It has not been cleared or approved by the U.S. Food and Drug Administration (FDA). The FDA has determined that such clearance or approval is not necessary. The test is used for clinical purpose. It should not be regarded as investigational or for research. This laboratory is certified to perform high complexity testing. The performance characteristics of the IHC/ALEXANDRIA assays have been validated on formalin-fixed paraffin embedded tissues only. The assays have not been validated on decalcified tissues. Results should be interpreted with caution. 11/10/2021 12:14 PM CDT [facility] Embedded Images 11/10/2021 12:14 PM CDT [facility] Pathology/Cytology ESOPHAGEAL BIOPSY SPECIMEN / Unknown 11/08/2021 9:49 AM CDT 11/08/2021 10:33 AM CDT Miscellaneous samples (specimen) POLYP OF COLON / Unknown 11/08/2021 10:07 AM CDT 11/08/2021 10:33 AM CDT Loyd Thao MD LAB - PATHOLOGY/CYT OLOGY ORDERABLES [facility] [address] [place] [address] * HELICOBACTER PYLORI UREASE (STL) (11/08/2021 9:48 AM CDT) Helicobacter pylori Urease Initial Negative Negative 11/09/2021 10:17 AM CDT [facility] Helicobacter pylori Urease Final Negative Negative 11/09/2021 10:17 AM CDT [facility] Comment:This is an appended report. These results have been appended to a previously preliminary verified report. Microbiology GASTRIC ANTRAL BIOPSY SPECIMEN / Unknown 11/08/2021 9:48 AM CDT 11/08/2021 1:48 PM CDT Loyd Thao MD LAB - MICROBIOLOGY ORDERABLES [facility] [address] [place] [address] * EGD (11/08/2021 8:53 AM CDT) Report Endoscopy POC _ Patient Name: Samuel Sanchez ?Procedure Date: 11/08/2021 8:53 AM ? Date of : 1945 ?Admit Type: Outpatient Age: 76 ? Gender: Male Attending MD: Loyd Thao MD _ Procedure: ? Upper GI endoscopy Indications: ? Follow-up of gastro-esophageal reflux disease, ? Follow-up of Pollard's esophagus Providers: ? Loyd Thao MD (Doctor) Referring MD: ?ZOILA Steward (Referring MD) Medicines: ? Monitored Anesthesia Care Complications: ? No immediate complications. _ Estimated Blood Loss: ? Estimated blood loss: none. Procedure: ? Pre-Anesthesia Assessment: ? - Prior to the procedure, a History and Physical was ? performed, and patient medications and allergies were ? reviewed. The patient is competent. The risks and ? benefits of the procedure and the sedation options and ? risks were discussed with the patient. All questions ? were answered and informed consent was obtained. ? Patient identification and proposed procedure were ? verified by the physician, the nurse and the ? webfocus developer in the procedure room. Mental Status ? Examination: alert and oriented. Airway Examination: ? normal oropharyngeal airway and neck mobility. ? Respiratory Examination: clear to auscultation. CV ? Examination: normal. Prophylactic Antibiotics: The ? patient does not require prophylactic antibiotics. ? Prior Anticoagulants: The patient has taken no ? previous anticoagulant or antiplatelet agents. ASA ? Grade Assessment: III - A patient with severe systemic ? disease. After reviewing the risks and benefits, the ? patient was deemed in satisfactory condition to ? undergo the procedure. The anesthesia plan was to use ? monitored anesthesia care (MAC). Immediately prior to ? administration of medications, the patient was ? re-assessed for adequacy to receive sedatives. The ? heart rate, respiratory rate, oxygen saturations, ? blood pressure, adequacy of pulmonary ventilation, and ? response to care were monitored throughout the ? procedure. The physical status of the patient was ? re-assessed after the procedure. ? After obtaining informed consent, the endoscope was ? passed under direct vision. Throughout the procedure, ? the patient's blood pressure, pulse, and oxygen ? saturations were monitored continuously. The ? Colonoscope was introduced through the mouth, and ? advanced to the second part of duodenum. The upper GI ? endoscopy was accomplished without difficulty. The ? patient tolerated the procedure well. ? Findings: ? There were esophageal mucosal changes consistent with short-segment ? Pollard's esophagus present in the lower third of the esophagus. The ? mucosa was visualized with HD white light and narrow band imaging. The ? maximum longitudinal extent of these mucosal changes was 0.5 cm in ? length. Mucosa was biopsied with a cold forceps for histology in 4 ? quadrants at intervals of 0.5 cm in the lower third of the esophagus. ? Localized mild inflammation characterized by erythema was found in the ? gastric antrum. Biopsies were taken with a cold forceps for Helicobacter ? pylori testing using CLOtest. ? The cardia, gastric fundus and gastric body were normal. ? The duodenal bulb and second portion of the duodenum were normal. _ ? Impression: ?- Esophageal mucosal changes consistent with ? short-segment Pollard's esophagus. Biopsied. ? - Gastritis. Biopsied. ? - Normal cardia, gastric fundus and gastric body. ? - Normal duodenal bulb and second portion of the ? duodenum. Recommendation: ?- Await pathology results. ? - Perform a colonoscopy today. ? - Follow an antireflux regimen. ? - Continue present medications. ? - Patient has a contact number available for ? emergencies. The signs and symptoms of potential ? delayed complications were discussed with the patient. ? Return to normal activities tomorrow. Written ? discharge instructions were provided to the patient. ? Procedure Code(s): ? --- Professional --- ? 65493, Esophagogastroduod enoscopy, flexible, transoral; with biopsy, ? single or multiple ? --- Technical --- ? 64367, Esophagogastroduod enoscopy, flexible, transoral; with biopsy, ? single or multiple Diagnosis Code(s): ? --- Professional --- ? 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 K29.70, Gastritis, unspecified, without bleeding ? K21.9, Gastro-esophageal reflux disease without esophagitis ? --- Technical --- ? 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 K29.70, Gastritis, unspecified, without bleeding ? K21.9, Gastro-esophageal reflux disease without esophagitis CPT copyright 2019 [employer]. All rights reserved. The codes documented in this report are preliminary and upon communications project manager review may be revised to meet current compliance requirements. Dr. Loyd Thao MD Loyd Thao MD 11/08/2021 9:50:09 AM This report has been signed electronically. Number of Addenda: 0 Note Initiated On: 11/08/2021 8:53 AM [facility] 11/08/2021 8:53 AM CDT Loyd Thao MD GI PROCEDURE ORDERA [facility] [place] [id number] * ENDOSCOPY, COLON, SCREENING (11/08/2021 8:52 AM CDT) Report Endoscopy POC _ Patient Name: Samuel Sanchez ?Procedure Date: 11/08/2021 8:52 AM ? Date of : 1945 ?Admit Type: Outpatient Age: 76 ? Gender: Male Attending MD: Loyd Thao MD _ Procedure: ? Colonoscopy Indications: ? High risk colon cancer surveillance: Personal history ? of colonic polyps, Last colonoscopy: 2019 Providers: ? Loyd Thao MD (Doctor) Referring MD: ?ZOILA Steward (Referring MD) Medicines: ? Monitored Anesthesia Care Complications: ? No immediate complications. _ Estimated Blood Loss: ? Estimated blood loss: none. Procedure: ? Pre-Anesthesia Assessment: ? - Prior to the procedure, a History and Physical was ? performed, and patient medications and allergies were ? reviewed. The patient is competent. The risks and ? benefits of the procedure and the sedation options and ? risks were discussed with the patient. All questions ? were answered and informed consent was obtained. ? Patient identification and proposed procedure were ? verified by the physician, the nurse and the ? webfocus developer in the procedure room. Mental Status ? Examination: alert and oriented. Airway Examination: ? normal oropharyngeal airway and neck mobility. ? Respiratory Examination: clear to auscultation. CV ? Examination: normal. Prophylactic Antibiotics: The ? patient does not require prophylactic antibiotics. ? Prior Anticoagulants: The patient has taken no ? previous anticoagulant or antiplatelet agents. ASA ? Grade Assessment: II - A patient with mild systemic ? disease. After reviewing the risks and benefits, the ? patient was deemed in satisfactory condition to ? undergo the procedure. The anesthesia plan was to use ? monitored anesthesia care (MAC). Immediately prior to ? administration of medications, the patient was ? re-assessed for adequacy to receive sedatives. The ? heart rate, respiratory rate, oxygen saturations, ? blood pressure, adequacy of pulmonary ventilation, and ? response to care were monitored throughout the ? procedure. The physical status of the patient was ? re-assessed after the procedure. ? After I obtained informed consent, the scope was ? passed under direct vision. Throughout the procedure, ? the patient's blood pressure, pulse, and oxygen ? saturations were monitored continuously. The ? Colonoscope was introduced through the anus and ? advanced to the cecum, identified by appendiceal ? orifice and ileocecal valve. The colonoscopy was ? performed without difficulty. The patient tolerated ? the procedure well. The quality of the bowel ? preparation was excellent. The ileocecal valve, ? appendiceal orifice, and rectum were photographed. ? Findings: ? The digital rectal exam was normal. Pertinent negatives include no ? palpable rectal lesions. ? Five sessile polyps were found in the rectum, sigmoid colon and ? ascending colon. The polyps were 5 to 6 mm in size. These polyps were ? removed with a hot snare. Resection and retrieval were complete. ? The transverse colon, cecum, appendiceal orifice and ileocecal valve ? appeared normal. ? A few small-mouthed diverticula were found in the sigmoid colon. ? Non-bleeding internal hemorrhoids were found during retroflexion. The ? hemorrhoids were mild. _ ? Impression: ?- Five 5 to 6 mm polyps in the rectum, in the sigmoid ? colon and in the ascending colon, removed with a hot ? snare. Resected and retrieved. ? - The transverse colon, cecum, appendiceal orifice and ? ileocecal valve are normal. ? - Diverticulosis in the sigmoid colon. ? - Non-bleeding internal hemorrhoids. Recommendation: ?- Await pathology results. ? - Return to primary care physician as previously ? scheduled. ? - High fiber diet indefinitely. ? - Continue present medications. ? - Patient has a contact number available for ? emergencies. The signs and symptoms of potential ? delayed complications were discussed with the patient. ? Return to normal activities tomorrow. Written ? discharge instructions were provided to the patient. ? - No repeat colonoscopy due to current age (66 years ? or older). ? Procedure Code(s): ? --- Professional --- ? 83880, Colonoscopy, flexible; with removal of tumor(s), polyp(s), or ? other lesion(s) by snare technique ? --- Technical --- ? 54760, Colonoscopy, flexible; with removal of tumor(s), polyp(s), or ? other lesion(s) by snare technique Diagnosis Code(s): ? --- Professional --- ? Z86.010, Personal history of colonic polyps ? K62.1, Rectal polyp ? K63.5, Polyp of colon ? K64.8, Other hemorrhoids ? K57.30, Diverticulosis of large intestine without perforation or abscess ? without bleeding ? --- Technical --- ? Z86.010, Personal history of colonic polyps ? K62.1, Rectal polyp ? K63.5, Polyp of colon ? K64.8, Other hemorrhoids ? K57.30, Diverticulosis of large intestine without perforation or abscess ? without bleeding CPT copyright 2019 [employer]. All rights reserved. The codes documented in this report are preliminary and upon communications project manager review may be revised to meet current compliance requirements. Dr. Loyd Thao MD Loyd Thao MD 11/08/2021 10:13:01 AM This report has been signed electronically. Number of Addenda: 0 Note Initiated On: 11/08/2021 8:52 AM [facility] 11/08/2021 8:52 AM CDT Loyd Thao MD GI PROCEDURE ORDERA [place] [facility] [place] [address] documented in this encounter Visit Diagnoses Not on filedocumented in this encounter Administered Medications Inactive Administered Medications - up to 3 most recent administrations Medication Order MAR Action Action Date Dose Rate Site 0.9% NaCl infusion at 20 mL/hr, Intravenous, CONTINUOUS, Starting on Sat11/08/21 at 0930, Until Sat11/08/21 at 1159, Pre-procedure (GI) Restarted 11/08/2021 10:06 AM CDT $ New Bag/Syringe 11/08/2021 9:00 AM CDT 20 mL/ hr documented in this encounter Active and Recently Administered Medications Times are shown in CDT. Continuous Medication Order 11/06/2021 11/07/2021 11/08/2021 0.9% NaCl infusion at 20 mL/hr, Intravenous, CONTINUOUS, Starting on Sat11/08/21 at 0930, Until Sat11/08/21 at 1159, Pre-procedure (GI) 0900 ($ New Bag/Syri nge - Provider: Shereen Sanchez RN)1005 (Paused - Provider: LIZANDRO Pepper - Comment: Switch to gravity)1006 (Restarted - Provider: LIZANDRO Pepper)1007 (Stopped - Provider: LIZANDRO Pepper) documented in this encounter Care Teams Medical Front Desk Specialist Relationship Specialty Start Date End Date Viraj Romeo PA [address] [place] [address] PCP - General 12/28/20 documented as of this encounter
--- OUTSIDE RECORDS SUMMARY | 2024-06-14 16:43 | XMS_ITS | Encounter Summary ---
Author Organization [facility] Address [address] [place] [address] Care Team Providers Care Pressure Tester Operator Name Role Phone Viraj Romeo Primary Care Provider [phone] Reason for Visit * Reason Comments Refill Request Encounter Details Date Type Department Care Team (Late st Contact Info) Description 03/09/2023 Refill [facility] - [address] [address] Zelda Batista, SHIP [employer]-[facility] [id number] [place] [address] Refill Request Social History Tobacco Use [...] Telephone Encounter - Darcie Johansen RN - 03/11/2023 7:48 AM CDT Last seen in Apr 2022, needs ov documented in this encounter Plan of Treatment Not on file documented as of this encounter Visit Diagnoses Not on filedocumented in this encounter Care Teams Pressure Tester Operator Relationship Specialty Start Date End Date Viraj Romeo PA [address] [place] [address] PCP - General 12/28/20 documented as of this encounter
--- OUTSIDE RECORDS SUMMARY | 2024-06-14 16:43 | XMS_ITS | Encounter Summary ---
Author Organization [facility] Address [address] [facility] [place] [address] Care Team Providers Care Reconnaissance Man Name Role Phone Viraj Romeo Primary Care Provider [phone] Reason for Referral * Procedure (Routine) - Closed Specialty Diagnoses / Procedures Referred By Alcira forrest Referred To Contact Gastroenterology Diagnoses Gastroesophageal reflux disease without esophagitis [place] [address] [place] [phone] Referral ID Status Reason Start Date Expiration Date Visits Re quested Visits Authorized [id number] Closed 10/20/2021 10/20/2022 1 1 * Procedure (Routine) - Closed Specialty Diagnoses / Procedures Referred By Alcira forrest Referred To Contact Gastroenterology Diagnoses Special screening for malignant neoplasms, colon Procedures ENDOSCOPY, COLON, [place] [address] [place] [address] Referral ID Status Reason Start Date Expiration Date Visits Re quested Visits Authorized [id number] Closed 10/20/2021 10/20/2022 1 1 Encounter Details Date Type Department Care Team (Late st Contact Info) Description 10/20/2021 Orders Only [facility] [place] [address] [place] [address] [place] [address] [place] [address] Special screening for malignant neoplasms, colon ; Gastroesophageal reflux disease without esophagitis Social History Tobacco Use Types Packs/Day Years Used Date Smoking Tobacco: Never Smokeless Tobacco: Never Alcohol Use Standard Drinks/Week Comments Yes 0 (1 standard drink = 0.6 oz pur e alcohol) Sex and Gender Information Value Date Recorded Sex Assigned at Male 08/22/2021 3:52 PM CDT Gender Identity Male 08/22/2021 3:52 PM CDT Sexual Orientation Not on file documented as of this encounter Patient Instructions * Patient Instructions* aKy Moore - 10/20/2021 8:22 AM CDT DENIS MCKINGHT M.D. OFFICE: [phone] COLONOSCOPY NOTIFY OUR OFFICE IF YOU ARE TAKING A BLOOD THINNER (ie. COUMADIN,PLAVIX,ASPIRIN) OR MEDICATIONS THAT CONTAIN ASPIRIN OR IRON. STOP ON DAY BEFORE PROCEDURE 11/07/2021 Begin a CLEAR LIQUID DIET when you wake up the day before the procedure avoiding RED colored liquids. A clear liquid diet includes: water,fruit juices without pulp, clear broth or bouillon, coffee or tea (without milk or non dairy creamer), Gatorade, carbonated and non-carbonated soft drinks, William-Aid or flavored drinks, plain jello (without added fruits of toppings), popsicles, and hard candy. NO SOLID FOODS should be eaten while on the CLEAR LIQUID DIET. STEP 1: 10 am Take 4 bisacodyl 5mg tablets with water. (These are purchased over the counter-THESE ARE ALSO CALLED DULCOLAX LAXATIVE PILLS . STEP 2: Noon Drink first bottle of bowel prep SLOWLY. Followed by 5 glasses(8 ounces each) of fluidover the next 5 hours. STEP 3: 9:00 pm Drink second bottle of bowel prep SLOWLY. Followed by 3 glasses (8 ounces each) of fluid over next 2 hours. Stools should be clear water without particles of stool. DAY OF PROCEDURE 11/08/2021 > You may have nothing BY mouth after midnight. You may take your routine medications (except blood thinners) with a Sip of water. >[place] [address] [facility] 2nd Floor Surgery Waiting room at 9:00 AM. >Your procedure is scheduled for 10:00 AM . >You will be given medication for this procedure. YOU MUST HAVE A SOIL SCIENCE TEACHER PRESENT TO TAKE YOU HOME. >It is ultimately your responsibility to verify insurance coverage and obtain Referral if needed. IF YOU HAVE QUESTIONS PLEASE CALL THE OFFICE AT [phone]. documented in this encounter Plan of Treatment Not on file documented as of this encounter Results * EGD (11/08/2021 8:53 AM CDT) Report Endoscopy POC _ Patient Name: Samuel Sanchez ?Procedure Date: 11/08/2021 8:53 AM ? Date of : 1945 ?Admit Type: Outpatient Age: 76 ? Gender: Male Attending MD: Denis Mcknight MD _ Procedure: ? Upper GI endoscopy Indications: ? Follow-up of gastro-esophageal reflux disease, ? Follow-up of Pollard's esophagus Providers: ? Denis Mcknight MD (Doctor) Referring MD: ?ZOILA Steward (Referring [...] the physician, the nurse and the ? hospital receiving clerk in the procedure room. Mental Status ? [...] Procedure Code(s): ? --- Professional --- ? 62294, Esophagogastroduod enoscopy, flexible, transoral; with biopsy, ? single or multiple ? --- Technical --- ? 15530, Esophagogastroduod enoscopy, flexible, transoral; with biopsy, ? single or multiple Diagnosis Code(s): ? --- Professional --- ? 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 K29.70, Gastritis, unspecified, without bleeding ? K21.9, Gastro-esophageal reflux disease without esophagitis ? --- Technical --- ? 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 K29.70, Gastritis, unspecified, without bleeding ? K21.9, Gastro-esophageal reflux disease without esophagitis CPT copyright 2019 [employer]. All rights reserved. The codes documented in this report are preliminary and upon support services specialist review may be revised to meet current compliance requirements. Dr. Denis Mcknight MD Denis Mcknight MD 11/08/2021 9:50:09 AM This report has been signed electronically. Number of Addenda: 0 Note Initiated On: 11/08/2021 8:53 AM [facility] 11/08/2021 8:53 AM CDT Denis Mcknight MD GI PROCEDURE BRITANYA VINAY [facility] END[facility]COPY SUSIE Reyes [id number] * ENDOSCOPY, COLON, SCREENING (11/08/2021 8:52 AM CDT) Report Endoscopy POC _ Patient Name: Samuel Sanchez ?Procedure Date: 11/08/2021 8:52 AM ? Date of : 1945 ?Admit Type: Outpatient Age: 76 ? Gender: Male Attending MD: Denis Mcknight MD _ Procedure: ? Colonoscopy Indications: ? High risk colon cancer surveillance: Personal history ? of colonic polyps, Last colonoscopy: 2019 Providers: ? Denis Mcknight MD (Doctor) Referring MD: ?ZOILA Steward (Referring [...] the physician, the nurse and the ? hospital receiving clerk in the procedure room. Mental Status ? [...] Procedure Code(s): ? --- Professional --- ? 05769, Colonoscopy, flexible; with removal of tumor(s), polyp(s), or ? other lesion(s) by snare technique ? --- Technical --- ? 60827, Colonoscopy, flexible; with removal of tumor(s), polyp(s), [...] abscess ? without bleeding CPT copyright 2019 [employer]. All rights reserved. The codes documented in this report are preliminary and upon support services specialist review may be revised to meet current compliance requirements. Dr. Denis Mcknight MD Denis Mcknight MD 11/08/2021 10:13:01 AM This report has been signed electronically. Number of Addenda: 0 Note Initiated On: 11/08/2021 8:52 AM [facility] 11/08/2021 8:52 AM CDT Denis Mcknight MD GI PROCEDURE ORDERA [facility] [address] documented in this encounter Visit Diagnoses Diagnosis Special screening for malignant neoplasms, colon- Primary Gastroesophageal reflux disease without esophagitis Esophageal reflux documented in this encounter Care Teams Reconnaissance Man Relationship Specialty Start Date End Date Viraj Romeo PA [address] [place] [address] PCP - General 12/28/20 documented as of this encounter
--- OUTSIDE RECORDS SUMMARY | 2024-06-14 16:43 | XMS_ITS | Encounter Summary ---
Author Organization [facility] Address [address] [facility] [place] [address] Care Team Providers Care Assistant Account Manager Name Role Phone Viraj Romeo Primary Care Provider [phone] Reason for Referral * Procedure (Routine) - Closed Specialty Diagnoses / Procedures Referred By Alcira forrest Referred To Contact Gastroenterology Diagnoses Gastroesophageal reflux disease without esophagitis [place] [address] [place] [phone] Referral ID Status Reason Start Date Expiration Date Visits Re quested Visits Authorized [id number] Closed 10/20/2021 10/20/2022 1 1 * Procedure (Routine) - Closed Specialty Diagnoses / Procedures Referred By Alcira forrest Referred To Contact Gastroenterology Diagnoses Special screening for malignant neoplasms, colon Procedures ENDOSCOPY, COLON, [place] [address] [place] [phone] Referral ID Status Reason Start Date Expiration Date Visits Re quested Visits Authorized [id number] Closed 10/20/2021 10/20/2022 1 1 Reason for Visit * Auth/Cert Specialty Diagnoses / Procedures Referred By Alcira forrest Referred To Contact Procedures COLONOSCOPY SCREEN ESOPHAGOGASTRODUODENOSCOPY (EGD) DIAGNOSTIC Referral ID Status Reason Start Date Expiration Date Visits Re quested Visits Authorized [id number] 1 1 Encounter Details Date Type Department Care Team (Latest Contact Info) Description 11/08/2021 8:25 AM CDT - 11/08/2021 10:54 AM CDT Hospital Encounter [facility] [address] [place] [address] [place] [address] [facility] [address] [place] [phone] Surgery General Discharge Disposition: Home or Self Care Social History Tobacco Use Types Packs/Day Years [...] Sign Reading Time Taken Comments Blood Pressure 121/77 11/08/2021 10:37 AM CDT Pulse 58 11/08/2021 10:37 AM CDT Temperature 36.6 ??C (97.8 ??F) 11/08/2021 10:12 AM C DT Respiratory Rate 16 11/08/2021 10:37 AM CDT Oxygen Saturation 96% 11/08/2021 10:37 AM CDT Inhaled Oxygen Concentration - - [...] ENDOSCOPY PRE-PROCEDURE MEDICAL HISTORY & PHYSICAL Samuel Pepeman 76 year old male BP 139/92 Pulse [...] Continuous Loyd Thao MD 20 mL/hr at 11/08/21 0900 New Bag at 11/08/21 0900 Physicial [...] STAT 11/08/2021 9:48 AM CDT Diagnosis deferred HI ED EGD FLEX TRANSORAL DX 11/08/2021 9:45 AM CDT COLONOSCOPY SCREEN 11/08/2021 9: 45 AM CDT EGD Routine 11/08/2021 8:53 AM CDT Gastroesophageal reflux disease without esophagitis ENDOSCOPY, COLON, SCREENING Routine 11/08/2021 8:52 AM CDT Special screening for malignant neoplasms, colon documented in this encounter Results * PATHOLOGY TISSUE EXAM (STL) (11/08/2021 9:49 AM CDT) Case Report Surgical Pathology Report ? Case: [id number] ? Authorizing Provider: ??Loyd Thao MD ? Collected: ? 11/08/2021 09:49 AM ? Ordering Location: ? [facility] ?Received: ?11/08/2021 10:33 AM [...] esophagus on endoscopy. 11/10/2021 12:14 PM CDT [facility] Gross Description Received in formalin labeled with patient's name and esophageal biopsy are 5 fragments of massey soft tissue measuring 1 mm. Submitted entirely in cassette A1. Received in formalin labeled with patient's name and colon polyp are 5 fragments of massey soft tissue measuring 5 x 4 x 2 mm in aggregate. Submitted entirely in cassette B1. 11/10/2021 12:14 PM T [facility] Microscopic Description Histologic sections of the [...] a sessile serrated adenoma. 11/10/2021 12:14 PM T [facility] Disclaimer All histochemical and/or immunohistochemical results are interpreted with controls that demonstrate appropriate staining reactions before reporting results. Note on use of immunocytochemistry reagents: This test was developed and its performance characteristic determined by [facility], Department of Laboratory Medicine. It has not [...] be interpreted with caution. 11/10/2021 12:14 PM T [facility] Embedded Images 11/10/2021 12:14 PM [facility] Pathology/Cytology ESOPHAGEAL BIOPSY SPECIMEN / Unknown 11/08/2021 9:49 AM CDT 11/08/2021 10:33 AM CDT Miscellaneous samples (specimen) POLYP OF COLON / Unknown 11/08/2021 10:07 AM CDT 11/08/2021 10:33 AM CDT Loyd Thao MD LAB - PATHOLOGY/CYT OLOGY ORDERABLES Performing Organization Address [facility] de Phone Number [facility] [address] [place] [id number] * HELICOBACTER PYLORI UREASE (STL) (11/08/2021 9:48 AM CDT) Helicobacter pylori Urease Initial Negative Negative 11/09/2021 10:17 AM CDT [facility] Helicobacter pylori Urease Final Negative Negative 11/09/2021 10:17 AM CDT [facility] Comment:This is an appended report. These results have been appended to a previously preliminary verified report. Microbiology GASTRIC ANTRAL BIOPSY SPECIMEN / Unknown 11/08/2021 9:48 AM CDT 11/08/2021 1:48 PM CDT Loyd Thoa MD LAB - MICROBIOLOGY ORDERABLES Performing Organization Address [facility] de Phone Number [facility] [id number] [place] [phone] * EGD (11/08/2021 8:53 AM CDT) Report [...] the physician, the nurse and the ? produce sorter in the procedure room. Mental Status ? [...] Procedure Code(s): ? --- Professional --- ? 20664, Esophagogastroduod enoscopy, flexible, transoral; with biopsy, ? single or multiple ? --- Technical --- ? 25029, Esophagogastroduod enoscopy, flexible, transoral; with biopsy, ? single or multiple Diagnosis Code(s): ? --- Professional --- ? K22.70, Polalrd's esophagus without dysplasia ? K29.70, Gastritis, unspecified, without bleeding ? K21.9, Gastro-esophageal reflux disease without esophagitis ? --- Technical --- ? 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 K29.70, Gastritis, unspecified, without bleeding ? K21.9, Gastro-esophageal reflux disease without esophagitis CPT copyright 2019 [employer]. All rights reserved. The codes documented in this report are preliminary and upon cup trimming machine operator review may be revised to meet current compliance requirements. Dr. Loyd Thao MD Loyd Thao MD 11/08/2021 9:50:09 AM This report has been signed electronically. Number of Addenda: 0 Note Initiated On: 11/08/2021 8:53 AM [facility] 11/08/2021 8:53 AM CDT Loyd Thao MD GI PROCEDURE ORDERA VINAY [facility] [place] [address] * ENDOSCOPY, COLON, SCREENING (11/08/2021 8:52 AM [...] the physician, the nurse and the ? produce sorter in the procedure room. Mental Status ? [...] Procedure Code(s): ? --- Professional --- ? 30486, Colonoscopy, flexible; with removal of tumor(s), polyp(s), or ? other lesion(s) by snare technique ? --- Technical --- ? 43080, Colonoscopy, flexible; with removal of tumor(s), polyp(s), [...] abscess ? without bleeding CPT copyright 2019 [employer]. All rights reserved. The codes documented in this report are preliminary and upon cup trimming machine operator review may be revised to meet current compliance requirements. Dr. Loyd Thao MD Loyd Thao MD 11/08/2021 10:13:01 AM This report has been signed electronically. Number of Addenda: 0 Note Initiated On: 11/08/2021 8:52 AM [facility] 11/08/2021 8:52 AM CDT Loyd Thao MD GI PROCEDURE ORDERA KIERANS [facility] [address] documented in this encounter Visit Diagnoses Diagnosis Special screening for malignant neoplasms, colon Gastroesophageal reflux disease without esophagitis Esophageal reflux Diagnosis deferred Other unknown and unspecified cause of morbidity or mortality documented in this encounter Administered Medications Inactive Administered [...] Pepper) documented in this encounter Care Teams Assistant Account Manager Relationship Specialty Start Date End Date Viraj Romeo PA [address] [place] [address] PCP - General 12/28/20 documented as of this encounter
--- OUTSIDE RECORDS SUMMARY | 2024-06-14 16:43 | XMS_ITS | Patient Health Summary ---
Author Organization [facility] Address [address] [place] [address] Care Team Providers Care Contact Finger Assembler Name Role Phone Viraj Romeo Primary Care Provider [phone] [facility] [place],non-owned Affiliates and Associated Physician Practices is amultiple site organization consisting of ambulatory clinics and hospital sitesin [place], [place], [place] and [place]. This disclosure is being madepursuant to the Care Everywhere program and may not contain all information available regarding this patient. Last updated 18.[facility] Allergies * Hydrocodone(Itching) -Low Criticality * Perfume [Other](Shortness of Breath,Cough) -High Criticality * Hydrocodone-Acetaminophen(Itching) -Low Criticality * Acetaminophen(Itching),Inactive Medications * Be aware that medications may not be up to date on this document. Alwaysverify current medications with the patient. * multivitamin daily (THERAGRAN) tablet Take 1 tablet by mouth once daily 300 MG * famotidine (PEPCID) 40 MG tablet(Started 12/21/2019) Take 40 mg by mouth once daily * methotrexate 2.5 MG tablet(Started 02/02/2020) Take 6 tablets by mouth every 7 days * tamsulosin (FLOMAX) 0.4 MG capsule(Started 04/03/2018) Take 0.4 mg by mouth once daily * Multiple Vitamins-Minerals (PRESERVISION AREDS 2) capsule Take 1 capsule by mouth 2 times daily * lansoprazole (PREVACID) 30 MG capsule(Started 12/19/2021) Take 1 (one) capsule by mouth 2 times daily, before breakfast and supper TO IMPROVE HEARTBURN SYMPTOMS 2 refills by 12/19/2022 * albuterol HFA (Proventil; Ventolin; Proair) 108 (90 Base) MCG/ACT inhaler (Started 06/26/2021) INHALE 1 TO 2 PUFFS EVERY 4 TO 6 HOURS NEEDED FOR DIFFICULTY BREATHING * rOPINIRole (Requip) 2 MG tablet(Started 03/28/2022) TAKE 1 TABLET BY MOUTH EVERY DAY AT BEDTIME * omeprazole (PriLOSEC) 40 MG capsule(Started 03/11/2023) TAKE 1 CAPSULE BY MOUTH DAILY BEFORE BREAKFAST Active Problems Problem Noted Date Diagnosed Date [...] Mass Index 29.03 11/08/2021 8:58 AM CDT Procedures * PATHOLOGY TISSUE EXAM (STL)(Performed 11/08/2021) Performed for Diagnosis deferred * HELICOBACTER PYLORI UREASE (STL)(Performed 11/08/2021) Performed for Diagnosis deferred * OK ED EGD FLEX TRANSORAL DX(Performed 11/08/2021) * COLONOSCOPY SCREEN(Performed 11/08/2021) * EGD(Performed 11/08/2021) Performed for Gastroesophageal reflux disease without esophagitis * ENDOSCOPY, COLON, SCREENING(Performed 11/08/2021) Performed for Special screening for malignant neoplasms, colon * CT ABDOMEN PELVIS W CONTRAST(Performed 03/30/2020) Performed for Abdominal pain, unspecified abdominal location * CREATININE - POCT INTERFACED(Performed 03/30/2020) * MRI LUMBAR SPINE WO CONTRAST(Performed 03/18/2020) Performed for Chronic midline low back pain without sciatica * HELICOBACTER PYLORI UREASE (STL)(Performed 03/14/2020) Performed for Diagnosis unknown * PATHOLOGY TISSUE EXAM (STL)(Performed 03/14/2020) Performed for Diagnosis unknown * COLONOSCOPY SCREEN(Performed 03/14/2020) * OK ED EGD FLEX TRANSORAL DX(Performed 03/14/2020) * ENDOSCOPY, COLON, SCREENING(Performed 03/14/2020) Performed for Abnormal weight loss, Change in bowel function * EGD(Performed 03/14/2020) * XR CHEST 2VW(Performed 06/05/2016) Performed for Rheumatoid arthritis involving multiple sites with positive rheumatoid factor (HCC) * DERMATOPATHOLOGY(Performed 03/15/2016) Results * PATHOLOGY TISSUE EXAM (STL) (11/08/2021 9:49 AM CDT) Only the most recent of2 resultswithin the time period is included. Case Report Surgical Pathology Report ? Case: [id number] ? Authorizing Provider: ??Loyd Thao MD ? Collected: ? 11/08/2021 09:49 AM ? Ordering Location: ? [facility] ?Received: ?11/08/2021 10:33 AM [...] sessile serrated adenoma. 11/10/2021 12:14 PM T [facility] Disclaimer All histochemical and/or immunohistochemical [...] interpreted with caution. 11/10/2021 12:14 PM CDT [facility] Embedded Images 11/10/2021 12:14 PM CDT [facility] Pathology/Cytology ESOPHAGEAL BIOPSY SPECIMEN / Unknown 11/08/2021 9:49 AM CDT 11/08/2021 10:33 AM CDT Miscellaneous samples (specimen) POLYP OF COLON / Unknown 11/08/2021 10:07 AM CDT 11/08/2021 10:33 AM CDT Loyd Thao MD LAB - PATHOLOGY/CYT OLOGY ORDERABLES [facility] [address] [place] [address] * HELICOBACTER PYLORI UREASE (STL) (11/08/2021 9:48 AM CDT) Only the most recent of2 resultswithin the time period is included. Helicobacter pylori Urease Initial Negative Negative 11/09/2021 10:17 AM CDT [facility] Helicobacter pylori Urease Final Negative Negative 11/09/2021 10:17 AM CDT [facility] Comment:This is an appended report. These results have been appended to a previously preliminary verified report. Microbiology GASTRIC ANTRAL BIOPSY SPECIMEN / Unknown 11/08/2021 9:48 AM CDT 11/08/2021 1:48 PM CDT Loyd Thao MD LAB - MICROBIOLOGY ORDERABLES [facility] [address] [place] [address] * EGD (11/08/2021 8:53 AM [...] the physician, the nurse and the ? delivery man in the procedure room. Mental Status ? [...] Procedure Code(s): ? --- Professional --- ? 71507, Esophagogastroduod enoscopy, flexible, transoral; with biopsy, ? single or multiple ? --- Technical --- ? 40319, Esophagogastroduod enoscopy, flexible, transoral; with biopsy, ? single or multiple Diagnosis Code(s): ? --- Professional --- ? 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 K29.70, Gastritis, unspecified, without bleeding ? K21.9, Gastro-esophageal reflux disease without esophagitis ? --- Technical --- ? 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 K29.70, Gastritis, unspecified, without bleeding ? K21.9, Gastro-esophageal reflux disease without esophagitis CPT copyright 2019 [employer]. All rights reserved. The codes documented in this report are preliminary and upon obiee obia solution architect review may be revised to meet current compliance requirements. Dr. Loyd Thao MD Loyd Thao MD 11/08/2021 9:50:09 AM This report has been signed electronically. Number of Addenda: 0 Note Initiated On: 11/08/2021 8:53 AM [facility] 11/08/2021 8:5 3 AM CDT Loyd Thao MD GI PROCEDURE ORDERA KIERANS [facility] [place] [id number] * ENDOSCOPY, COLON, SCREENING (11/08/2021 8:52 AM [...] the physician, the nurse and the ? delivery man in the procedure room. Mental Status ? [...] Procedure Code(s): ? --- Professional --- ? 39266, Colonoscopy, flexible; with removal of tumor(s), polyp(s), or ? other lesion(s) by snare technique ? --- Technical --- ? 22019, Colonoscopy, flexible; with removal of tumor(s), polyp(s), [...] abscess ? without bleeding CPT copyright 2019 [employer]. All rights reserved. The codes documented in this report are preliminary and upon obiee obia solution architect review may be revised to meet current compliance requirements. Dr. Loyd Thao MD Loyd Thao MD 11/08/2021 10:13:01 AM This report has been signed electronically. Number of Addenda: 0 Note Initiated On: 11/08/2021 8:52 AM [facility] 11/08/2021 8:52 AM CDT Loyd Thao MD GI PROCEDURE ORDERPoncho MCLEAN [facility] [place] [address] * CT ABDOMEN PELVIS W CONTRAST (03/30/2020 10:19 AM CDT) Anatomical Region Laterality Modality Abdomen, Pelvis Computed Tomogra phy 03/30/2020 10:4 6 AM CDT Impressions 03/30/2020 12:00 PM CDT No acute inflammatory process identified within the abdomen or pelvis. Small bilateral nonobstructing intrarenal calculi. Punctate calcification region of the distal left ureter of 2 mm may represent a small nonobstructing ureteral calculus or adjacent phlebolith. *Reading Radiologist: Chidi Polanco on 03/30/2020 at 12:00 PM Narrative 03/30/2020 12:[address] Abdomen With Contrast CT Pelvis With Contrast Clinical Indication: Unspecified abdominal pain. COMPARISON: None. Technique: Axial CT images from the lung bases through the pubic symphysis were obtained following intravenous administration of Isovue 3 Findings: A few small cysts are identified in the superior left hepatic lobe, an additional probable cyst in the posterior right hepatic lobe. The spleen is within normal limits. The stomach, duodenum, pancreas, and adrenal glands are unremarkable. No radiopaque gallstones or biliary ductal dilatation. Kidneys enhance normally. There are bilateral renal cystic lesions. Small nonobstructing stones are identified bilaterally. There is a punctate calculus region of the distal left ureter of 2 mm. Reference axial image 81 of series 2. No urinary bladder calculi seen. No bowel wall thickening or inflammation identified. No bowel obstruction. The appendix is within normal limits. Prostamegaly is noted. Free fluid is identified. No adenopathy is seen. There is plaque in the aorta without aneurysm. No acute osseous abnormality. Procedure Note Chidi Polanco MD - 03/30/[address] With Contrast CT Pelvis With Contrast Clinical Indication: Unspecified abdominal pain. COMPARISON: None. Technique: Axial CT images from the lung bases through the pubic symphysis were obtained following intravenous administration of Isovue 3 Findings: A few small cysts are identified in the superior left hepatic lobe, an additional probable cyst in the posterior right hepatic lobe. The spleen is within normal limits. The stomach, duodenum, pancreas, and adrenal glands are unremarkable. No radiopaque gallstones or biliary ductal dilatation. Kidneys enhance normally. There are bilateral renal cystic lesions. Small nonobstructing stones are identified bilaterally. There is a punctate calculus region of the distal left ureter of 2 mm. Reference axial image 81 of series 2. No urinary bladder calculi seen. No bowel wall thickening or inflammation identified. No bowel obstruction. The appendix is within normal limits. Prostamegaly is noted. Free fluid is identified. No adenopathy is seen. There is plaque in the aorta without aneurysm. No acute osseous abnormality. IMPRESSION No acute inflammatory process identified within the abdomen or pelvis. Small bilateral nonobstructing intrarenal calculi. Punctate calcification region of the distal left ureter of 2 mm may represent a small nonobstructing ureteral calculus or adjacent phlebolith. *Reading Radiologist: Chidi Polanco on 03/30/2020 at 12:00 PM Rojas Zuniga MD CT ORDERABLES * (ABNORMAL) CREATININE - POCT INTERFACED (03/30/2020 10:00 AM CDT) Creatinine POCT 0.63(L) 0.70 - 1.20 mg/dL 03/30/2020 10:13 AM CDT [facility] Blood BLOOD SPECIMEN / Unknown 03/30/2020 10:00 AM CDT 03/30/2020 10:13 AM CDT Rojas Zuniga MD LAB - POINT OF CARE ORDERABLES [facility] [address] [place] [address] * MRI LUMBAR SPINE WO CONTRAST (03/18/2020 1:47 PM CDT) Anatomical Region Laterality Modality Spine Magnetic Resonan ce 03/18/2020 2:17 PM CDT Impressions 03/18/2020 2:47 PM CDT Discogenic and facet degenerative changes are present throughout the lumbar spine as described in detail above resulting in mild central canal stenosis at L3-4 and L4-5 and in multifocal lateral recess stenoses. Edited by Asha Martinez on 03/18/2020 2:37 PM *Reading Radiologist: Neetu Merritt on 03/18/2020 at 2:47 PM Narrative 03/18/2020 2:47 PM CDT MRI LUMBAR SPINE INDICATION: Chronic low back pain without sciatica. COMPARISON: No prior radiographic examination of the lumbar spine. TECHNIQUE: Sagittal and axial T1 and T2. Sagittal STIR. FINDINGS: There are no comparison radiographs of the lumbar spine available at this time. For the purposes of this examination, it should be assumed that this patient has five lumbar vertebral bodies. Careful correlation between this and the subsequent radiographic examinations of the lumbar spine is recommended to ensure consistent numbering of disc spaces. This is particularly important if surgery is considered. Alignment: Alignment of the lumbar spine is within normal limits. Marrow: No compression or other vertebral fracture is seen at any level. There is a Schmorl's node at the inferior endplate of T12. A hemangioma is present at L2. Spinal cord: The spinal cord terminates at approximately T12-L1. Disc spaces: There is mild loss of disc height at L3-4 and L5-S1. Posterior disc bulges are present from L1-2 through L5-S1. The following levels were directly imaged in the axial plane: T12-L1: No significant disc herniation or stenosis. L1-L2: Mild facet arthropathy is present bilaterally without significant stenosis. L2-L3: Disc bulge to left of midline with facet arthropathy results in a mild left lateral recess stenosis. L3-L4: There is a mild diffuse disc bulge with bilateral facet arthropathy resulting in a mild central canal stenosis and mild to moderate bilateral lateral recess stenosis. Neural foramina are mildly narrowed bilaterally. L4-L5: Diffuse disc bulge is present with bilateral facet arthropathy resulting in a mild central canal stenosis, mild right and mild to moderate left lateral recess stenosis. The right neural foramen is mildly narrowed and the left is moderately narrowed. L5-S1: Diffuse disc bulge and bilateral facet arthropathy result in a mild bilateral lateral recess and neural foraminal stenosis. Procedure Note Neetu Merritt MD - 03/18/2020 MRI LUMBAR SPINE INDICATION: Chronic low back pain without sciatica. COMPARISON: No prior radiographic examination of the lumbar spine. TECHNIQUE: Sagittal and axial T1 and T2. Sagittal STIR. FINDINGS: There are no comparison radiographs of the lumbar spine available at this time. For the purposes of this examination, it should be assumed that this patient has five lumbar vertebral bodies. Careful correlation between this and the subsequent radiographic examinations of the lumbar spine is recommended to ensure consistent numbering of disc spaces. This is particularly important if surgery is considered. Alignment: Alignment of the lumbar spine is within normal limits. Marrow: No compression or other vertebral fracture is seen at any level. There is a Schmorl's node at the inferior endplate of T12. A hemangioma is present at L2. Spinal cord: The spinal cord terminates at approximately T12-L1. Disc spaces: There is mild loss of disc height at L3-4 and L5-S1. Posterior disc bulges are present from L1-2 through L5-S1. The following levels were directly imaged in the axial plane: T12-L1: No significant disc herniation or stenosis. L1-L2: Mild facet arthropathy is present bilaterally without significant stenosis. L2-L3: Disc bulge to left of midline with facet arthropathy results in a mild left lateral recess stenosis. L3-L4: There is a mild diffuse disc bulge with bilateral facet arthropathy resulting in a mild central canal stenosis and mild to moderate bilateral lateral recess stenosis. Neural foramina are mildly narrowed bilaterally. L4-L5: Diffuse disc bulge is present with bilateral facet arthropathy resulting in a mild central canal stenosis, mild right and mild to moderate left lateral recess stenosis. The right neural foramen is mildly narrowed and the left is moderately narrowed. L5-S1: Diffuse disc bulge and bilateral facet arthropathy result in a mild bilateral lateral recess and neural foraminal stenosis. 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 Edited by Asha Martinez on 03/18/2020 2:37 PM *Reading Radiologist: Neetu Merritt on 03/18/2020 at 2:47 PM Adilson Cutler PA-C MR ORDERABLES * ENDOSCOPY, COLON, SCREENING (03/14/2020 9:53 AM CDT) Report Endoscopy POC _ Patient Name: Samuel Sanchez ?Procedure Date: 03/14/2020 9:53 AM ? Date of : 1945 ?Admit Type: Outpatient Age: 74 ? Gender: Male Attending MD: Rojas Zuniga MD ? _ Procedure: ? Colonoscopy Indications: ? Generalized abdominal pain Providers: ? Rojas Zuniga MD (Doctor) Patient Profile: ?? This is a 74 year old male. Referring MD: ?ZOILA Steward (Referring MD) Medicines: ? Monitored Anesthesia Care Complications: ? No immediate complications. _ Procedure: ? Pre-Anesthesia Assessment: ? - Prior to the procedure, a History and Physical was ? performed, and patient medications and allergies were ? reviewed. The patient's tolerance of previous anesthesia ? was also reviewed. The risks and benefits of the procedure ? and the sedation options and risks were discussed with the ? patient. All questions were answered, and informed consent ? was obtained. Prior Anticoagulants: The patient has taken ? no previous anticoagulant or antiplatelet agents. ASA ? Grade Assessment: II - A patient with mild systemic ? disease. After reviewing the risks and benefits, the ? patient was deemed in satisfactory condition to undergo ? the procedure. ? After I obtained informed consent, the scope was passed ? under direct vision. Throughout the procedure, the ? patient's blood pressure, pulse, and oxygen saturations ? were monitored continuously. The Colonoscope was ? introduced through the anus and advanced to the terminal ? ileum, with identification of the appendiceal orifice and ? IC valve. The colonoscopy was performed with moderate ? difficulty due to spastic colon. The terminal ileum, ? ileocecal valve, appendiceal orifice, and rectum were ? photographed. The quality of the bowel preparation was ? adequate to identify polyps. ? Findings: ? The perianal and digital rectal examinations were normal. ? Five sessile polyps were found in the ascending colon and cecum. The ? polyps were 2 to 10 mm in size. 3 polyps were removed with a cold biopsy ? forceps. Resection and retrieval were complete. 2 polyps were removed ? with a hot snare. Resection and retrieval were complete. ? Five sessile polyps were found in the descending colon. The polyps were ? 3 to 12 mm in size. 2 polyps were removed with a hot snare. Resection ? and retrieval were complete. 3 polyps were removed with a cold biopsy ? forceps. Resection and retrieval were complete. ? Four sessile polyps were found in the recto-sigmoid colon. The polyps ? were 3 to 10 mm in size. 2 polyps were removed with a cold biopsy ? forceps. Resection and retrieval were complete. 2 polyps were removed ? with a hot snare. Resection and retrieval were complete. ? A few diverticula were found in the ascending colon. _ ? Impression: ?- Five 2 to 10 mm polyps in the ascending colon and in the ? cecum, removed with a cold biopsy forceps and removed with ? a hot snare. Resected and retrieved. ? - Five 3 to 12 mm polyps in the descending colon, removed ? with a hot snare and removed with a cold biopsy forceps. ? Resected and retrieved. ? - Four 3 to 10 mm polyps at the recto-sigmoid colon, ? removed with a cold biopsy forceps and removed with a hot ? snare. Resected and retrieved. ? - Diverticulosis in the ascending colon. Recommendation: ?- Patient has a contact number available for emergencies. ? The signs and symptoms of potential delayed complications ? were discussed with the patient. Return to normal ? activities tomorrow. Written discharge instructions were ? provided to the patient. ? - Resume previous diet. ? - Continue present medications. ? - Await pathology results. ? - Repeat colonoscopy in 1 year for surveillance. ? Procedure Code(s): ? --- Professional --- ? 13424, Colonoscopy, flexible; with removal of tumor(s), polyp(s), or ? other lesion(s) by snare technique ? --- Technical --- ? 00343, Colonoscopy, flexible; with removal of tumor(s), polyp(s), or ? other lesion(s) by snare technique Diagnosis Code(s): ? --- Professional --- ? D12.2, Benign neoplasm of ascending colon ? D12.0, Benign neoplasm of cecum ? D12.4, Benign neoplasm of descending colon ? D12.7, Benign neoplasm of rectosigmoid junction ? R10.84, Generalized abdominal pain ? --- Technical --- ? D12.2, Benign neoplasm of ascending colon ? D12.0, Benign neoplasm of cecum ? D12.4, Benign neoplasm of descending colon ? D12.7, Benign neoplasm of rectosigmoid junction ? R10.84, Generalized abdominal pain CPT copyright 2017 [employer]. All rights reserved. The codes documented in this report are preliminary and upon obiee obia solution architect review may be revised to meet current compliance requirements. Dr. Rojas Zuniga M.D. Rojas Zuniga MD 03/14/2020 12:47:22 PM Number of Addenda: 0 Note Initiated On: 03/14/2020 9:53 AM [facility] 03/14/2020 9:53 AM CDT Zelda Batista NATIONAL INVESTIGATIVE PRODUCER-CATERING DRIVER GI PROCEDURE OR DERABLES [facility] [place] [address] * EGD (03/14/2020 9:26 AM CDT) Report Endoscopy POC __ _ Patient Name: Samuel Sanchez ?Procedure Date: 03/14/2020 9:26 AM ? Date of : 1945 ?Admit Type: Outpatient Age: 74 ? Gender: Male Attending MD: Rojas Zuniga MD ? __ _ Procedure: ? Upper GI endoscopy Indications: ? Generalized abdominal pain Providers: ? Rojas Zuniga MD (Doctor) Patient Profile: ?? This is a 74 year old male. Referring MD: ?ZOILA Steward Medicines: ? Monitored Anesthesia Care Complications: ? No immediate complications. __ _ Procedure: ? Pre-Anesthesia Assessment: ? - Prior to the procedure, a History and Physical was ? performed, and patient medications and allergies were ? reviewed. The patient's tolerance of previous anesthesia ? was also reviewed. The risks and benefits of the procedure ? and the sedation options and risks were discussed with the ? patient. All questions were answered, and informed consent ? was obtained. Prior Anticoagulants: The patient has taken ? no previous anticoagulant or antiplatelet agents. ASA ? Grade Assessment: II - A patient with mild systemic ? disease. After reviewing the risks and benefits, the ? patient was deemed in satisfactory condition to undergo ? the procedure. ? After obtaining informed consent, the endoscope was passed ? under direct vision. Throughout the procedure, the ? patient's blood pressure, pulse, and oxygen saturations ? were monitored continuously. The Endoscope was introduced ? through the mouth, and advanced to the second part of ? duodenum. ? Findings: ? Esophagogastric landmarks were identified: the Z-line was found at 41 ? cm, the gastroesophageal junction was found at 41 cm and the site of ? hiatal narrowing was found at 44 cm from the incisors. ? A 3 cm hiatal hernia was present. ? A single 8 mm mucosal nodule was found at the gastroesophageal junction. ? Biopsies were taken with a cold forceps for histology. ? Diffuse moderately erythematous mucosa without bleeding was found in the ? gastric body. Biopsies were taken with a cold forceps for Helicobacter ? pylori testing using CLOtest. ? The examined duodenum was normal. __ _ ? Impression: ?- Esophagogastric landmarks identified. ? - 3 cm hiatal hernia. ? - Mucosal nodule found in the esophagus. Biopsied. ? - Erythematous mucosa in the gastric body. Biopsied. ? - Normal examined duodenum. Recommendation: ?- Patient has a contact number available for emergencies. ? The signs and symptoms of potential delayed complications ? were discussed with the patient. Return to normal ? activities tomorrow. Written discharge instructions were ? provided to the patient. ? - Resume previous diet. ? - Continue present medications. ? - Await pathology results. ? Procedure Code(s): ? --- Professional --- ? 62676, Esophagogastroduode noscopy, flexible, transoral; with biopsy, ? single or multiple ? --- Technical --- ? 34328, Esophagogastroduode noscopy, flexible, transoral; with biopsy, ? single or multiple Diagnosis Code(s): ? --- Professional --- ? K44.9, Diaphragmatic hernia without obstruction or gangrene ? K22.8, Other specified diseases of esophagus ? K31.89, Other diseases of stomach and duodenum ? R10.84, Generalized abdominal pain ? --- Technical --- ? K44.9, Diaphragmatic hernia without obstruction or gangrene ? K22.8, Other specified diseases of esophagus ? K31.89, Other diseases of stomach and duodenum ? R10.84, Generalized abdominal pain CPT copyright 2017 [employer]. All rights reserved. The codes documented in this report are preliminary and upon obiee obia solution architect review may be revised to meet current compliance requirements. Dr. Rojas Zuniga M.D. Rojas Zuniga MD 03/14/2020 12:32:00 PM Number of Addenda: 0 Note Initiated On: 03/14/2020 9:26 AM [facility] 03/14/2020 9:26 AM CDT Rojas Zuniga MD GI PROCEDURE ORDERAB LES [facility] [place] [address] * XR CHEST PA AND LATERAL (06/05/2016 10:58 AM RADIATION THERAPY TECHNICIAN) Anatomical Region Laterality Modality Chest Radiographic Corin ging 06/05/2016 1:44 PM RADIATION THERAPY TECHNICIAN Impressions 06/05/2016 1:44 PM RADIATION THERAPY TECHNICIAN Clear lungs. Narrative 06/05/2016 1:44 PM RADIATION THERAPY TECHNICIAN Chest x-ray 2 views. HISTORY: Rheumatoid arthritis. 2 views of the chest show normal heart size with normal vessels. Lungs are clear. Procedure Note Jeremy Lee MD - 06/05/2016 Chest x-ray 2 views. HISTORY: Rheumatoid arthritis. 2 views of the chest show normal heart size with normal vessels. Lungs are clear. IMPRESSION Clear lungs. Criss Blanco MD DIAGNOSTIC IMAGING O RDERABLES * PATHOLOGY TISSUE FOR DERMATOLOGY (03/15/2016 12:00 AM CDT) Result CASE: [id number] PATIENT: MARY SANCHEZ PATHOLOGIC DIAGNOSIS: Back: BENIGN VERRUCOUS KERATOSIS CLINICAL DATA: Irritated SK GROSS DESCRIPTION: Received is one formalin filled container labeled with the patients name. The specimen consists of a shave biopsy measuring [id number]. Jar 0. MICROSCOPIC DESCRIPTION: Sections show hyperkeratosis, papillomatosis, hypergranulosis , and acanthosis. ??These histological findings can be seen in a verruca vulgaris or a seborrheic keratosis. Electronically signed out by Stephanie Hyman M.D. 03/20/2016 2:52:57PM [facility] Comment: Performed at: Dermatopathology Laboratory [facility] Department of Dermatology [address] [place] [address], 5th [place] [address] Phone number: [phone] FAX: [phone] 03/15/2016 03/19/2016 Historical Provider MD LAB - PATHOLOGY/C YTOLOGY ORDERABLES [facility] [address] [place] [address]. 5th [place] [address], [facility] [phone] Care Teams Contact Finger Assembler Relationship Specialty Start Date End Date Viraj Romeo PA [address] [place] [address] PCP - General 12/28/20
--- OUTSIDE RECORDS SUMMARY | 2024-06-14 16:43 | XMS_ITS | Encounter Summary ---
Author Organization [facility] Address [address] [facility] [place] [address] Care Team Providers Care Instructional Facilitator Name Role Phone Viraj Romeo Primary Care Provider [phone] Reason for Visit * Reason Comments Refill Request Encounter Details Date Type Department Care Team ([facility] Contact Info) Description 03/11/2022 Refill [facility] - [address] [address] Zelda Batista, [facility] [id number] [place] [address] Refill Request Social History Tobacco Use [...] on filedocumented in this encounter Care Teams Instructional Facilitator Relationship Specialty Start Date End Date Viraj Romeo PA [address] [place] [address] PCP - General 12/28/20 documented as of this encounter
--- OUTSIDE RECORDS SUMMARY | 2024-06-14 16:43 | XMS_ITS | Continuity of Care Document ---
Author Organization [facility] Address [address] [place] [address] Care Team Providers Care Enrichment Teacher Name Role Phone Grey Tomas Primary Care Physician Encounter [facility] [id number] Date(s): 06/05/24 - 06/05/[address] [address]- Encounter Diagnosis Influenza(Discharge Diagnosis) - 06/05/24 Discharge Disposition: Home or Self Care Attending Physician: Zack Tian DO Referring Physician: Zack Tian DO Allergies, Adverse Reactions, Alerts No Known Allergies Medications benzonatate 100 mg oral capsule = 1 cap, Oral, every 8 hr, PRN as needed for cough, # 30 cap, 0 Refill(s), Pharmacy: [facility] #[id number] Start Date: 06/05/24 Status: Ordered finasteride 5 mg oral tablet = 1 tab, Oral, Daily, # 90 tab, 0 Refill(s) Start Date: 12/15/23 Status: Ordered omeprazole 40 mg, Daily, 0 Refill(s) Start Date: 06/02/24 Status: Ordered Tamiflu 75 mg oral capsule 1 cap, Oral, BID, # 10 cap, 0 Refill(s), Pharmacy: [facility] #[id number], 182, cm, 06/05/24 12:31:00 SAND ANALYST, Height, 97, kg, 06/05/24 12:37:00 SAND ANALYST, Weight Dosing Start Date: 06/05/24 Stop Date: 06/10/24 Status: Ordered Problem List No Chronic Problems Diagnosis Diagnosis Type Effective Dates Health Status Clini ann Service Informant Influenza Discharge Diagnosis 06/05/24 Results Laboratory List Name Date Coronavirus (COVID-19)/Flu/RSV (GeneXper t) 06/05/24 Automated Diff 06/05/24 BNP 06/05/24 CBC w/ Diff 06/05/24 Comprehensive Metabolic Panel (CMP) D-Dimer 06/05/24 PT/PTT 06/05/24 Most recent to oldest [Reference Range]: 1 Estimated Creatinine Clearance 61.70 mL/ min 1 (06/05/24 1:35 PM) WBC [4.50-11.00 x10^3/mcL] 7.59 x10^3/mc L (06/05/24 12:55 PM) RBC [4.50-5.90 x10^6/mcL] 5.01 x10^6/mcL (06/05/24 12:55 PM) Neutro Auto [45.0-76.0 %] 70.8 % (06/05/24 12:55 PM) Lymph Auto [14.0-45.0 %] 12.4 % *LOW* (06/05/24 12:55 PM) Platte Auto [1.0-10.0 %] 12.8 % *HI* (06/05/24 12:55 PM) Basophil Auto [0.0-2.0 %] 0.5 % (06/05/24 12:55 PM) Prothrombin Time [12.5-14.4 seconds] 14. 1 seconds (06/05/24 12:55 PM) INR [0.80-1.20] 1.08 2 (06/05/24 12:55 PM) BUN [8.0-26.0 mg/dL] 23.0 mg/dL (06/05/24 12:55 PM) Glucose Level [70-105 mg/dL] 134 mg/dL *HI* (06/05/24 12:55 PM) Potassium Level [3.5-5.1 mmol/L] 3.6 mmo l/L (06/05/24 12:55 PM) Baso Absolute [0.00-0.20 x10^3/mcL] 0.04 x10^3/mcL (06/05/24 12:55 PM) MCV [80.0-100.0 fL] 88.8 fL (06/05/24 12:55 PM) AST [5-34 unit/L] 59 unit/L *HI* (06/05/24 12:55 PM) ALT [0-55 IntlUnit/L] 66 IntlUnit/L *HI* (06/05/24 12:55 PM) MCHC [31.0-36.0 gm/dL] 34.6 gm/dL (06/05/24 12:55 PM) Sodium Level [136-145 mmol/L] 142 mmol/L (06/05/24 12:55 PM) Lymph Absolute [1.00-4.80 x10^3/mcL] 0.9 4 x10^3/mcL *LOW* (06/05/24 12:55 PM) Hct [40.0-54.0 %] 44.5 % (06/05/24 12:55 PM) Partial Thromboplastin Time [21.5-35.5 s econds] 32.6 seconds (06/05/24 12:55 PM) Calcium Level [8.4-10.2 mg/dL] 9.3 mg/dL (06/05/24 12:55 PM) Platte Absolute [0.00-0.80 x10^3/mcL] 0.97 x10^3/mcL *HI* (06/05/24 12:55 PM) Albumin Level [3.4-4.8 gm/dL] 3.5 gm/dL (06/05/24 12:55 PM) Protein Total [6.4-8.3 gm/dL] 7.4 gm/dL (06/05/24 12:55 PM) MCH [25.0-35.0 pg] 30.7 pg (06/05/24 12:55 PM) Neutro Absolute [1.80-7.70 x10^3/mcL] 5. 38 x10^3/mcL (06/05/24 12:55 PM) Bilirubin Total [0.2-1.2 mg/dL] 0.6 mg/d L (06/05/24 12:55 PM) Hgb [13.5-17.5 gm/dL] 15.4 gm/dL (06/05/24 12:55 PM) Alk Phos [40-150 IntlUnit/L] 66 IntlUnit /L (06/05/24 12:55 PM) MPV [6.0-11.0 fL] 10.1 fL (06/05/24 12:55 PM) Platelets [150-400 x10^3/mcL] 155 x10^3/ mcL (06/05/24 12:55 PM) CO2 [22.0-29.0 mEq/L] 22.0 mEq/L (06/05/24 12:55 PM) Eos Absolute [0.00-0.45 x10^3/mcL] 0.24 x10^3/mcL (06/05/24 12:55 PM) BNP [10.0-100.0 pg/mL] 15.0 pg/mL (06/05/24 12:55 PM) Chloride Level [98-107 mmol/L] 108 mmol/ L *HI* (06/05/24 12:55 PM) Globulin Level [2.0-4.2 gm/dL] 3.9 gm/dL (06/05/24 12:55 PM) Albumin/Globulin Ratio [1.1-2.2 ratio] 0 .9 ratio *LOW* (06/05/24 12:55 PM) eGFR CKD-EPI 55 mL/min/1.73m?? 3 *NA* (06/05/24 12:55 PM) Imm Gran Absolute [0.00-0.10 x10^3/mcL] 0.02 x10^3/mcL (06/05/24 12:55 PM) Imm Gran Auto [0.0-0.5 %] 0.3 % (06/05/24 12:55 PM) NRBC Absolute 0.00 x10^3/mcL *NA* (06/05/24 12:55 PM) NRBC Auto [0.0-0.0 /100(WBCs)] 0.0 /100( WBCs) (06/05/24 12:55 PM) RDW-CV [11.0-16.0 %] 13.2 % (06/05/24 12:55 PM) Coronavirus (COVID-19) PCR (GeneXpert) [ Negative] Negative *NA* (06/05/24 12:56 PM) Flu A PCR (GeneXpert) [Negative] Positiv e *ABN* (06/05/24 12:56 PM) Flu B PCR (GeneXpert) [Negative] Negativ e *NA* (06/05/24 12:56 PM) RSV PCR (GeneXpert) [Negative] Negative *NA* (06/05/24 12:56 PM) Creatinine Level [0.72-1.25 mg/dL] 1.31 mg/dL *HI* (06/05/24 12:55 PM) Anion Gap [8.0-16.0 mmol/L] 12.0 mmol/L (06/05/24 12:55 PM) D Dimer, (Quant.) [0.27-0.50 mcg/mL FEU] 0.72 mcg/mL FEU *HI* (06/05/24 12:55 PM) Eos Auto [0.0-9.0 %] 3.2 % (06/05/24 12:55 PM) 1Result Comment: Calculated using method: Cockcroft-Gault (Actual Weight) 2Interpretive Data: THERAPEUTIC RANGE FOR INR IS 2.0 - 3.0 MECHANICAL HEART VALVE RANGE FOR INR IS 2.5 TO 3.5 3Interpretive Data: GFR INTERPRETATION AGE AVG GFR 20-29 116 ml/min/1.73 m2 30-39 107 ml/min/1.73 m2 40-49 99 ml/min/1.73 m2 50-59 93 ml/min/1.73 m2 60-69 85 ml/min/1.73 m2 70+ 75 ml/min/1.73 m2 Chronic Kidney Disease-Less than 60 ml/min/1.73 m2 Kidney Failure-Less than 15 ml/min/1.73 m2 Radiology Reports * Exam Date Time Procedure Performing Provider Status 06/05/24 1:[address] Brain/Head w/o Contrast Francisco Cerrato; Auth (Verified) Notes: (CT Brain/Head w/o Contrast) Reason For Exam: Hallucinations CT Brain/Head w/o Contrast Exam: CT Brain/Head w/o Contrast Ordering Provider: Zack Tian Order Date: 06/05/2024 History: Hallucinations COMPARISON: CT head performed 01 July 2022. TECHNIQUE: Axial computed tomography images of the head/brain without intravenous contrast. Coronal and sagittal reformatted images were created and reviewed. Iterative reconstruction dose reduction techniques were utilized in the performance of this examination. FINDINGS: Brain: Mild cerebral atrophy and periventricular small vessel disease. Minimal extra-axial fluid seen within the left frontoparietal lobe measuring up to 4 mm in thickness, decreased in conspicuity from comparison study, likely representing either a chronic subdural hemorrhage or subdural hygroma. No acute intracranial hemorrhage seen. Skeletal system: Normal. No acute fracture. Sinuses: Normal as visualized. No acute sinusitis. Mastoid air cells: Normal as visualized. No mastoid effusion. IMPRESSION: No CT evidence of acute intracranial abnormality. 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 ANALYST Final Signed by: Won Morales MD Signed (Electronic Signature): 06/05/2024 1:48 pm * Exam Date Time Procedure Performing Provider Status 06/05/24 1:20 PM XR Chest 1 View Albina Schultz; Gage (Verified) Notes: (XR Chest 1 View) Reason For Exam: fever cough XR Chest 1 View Exam: XR Chest 1 View Ordering Provider: Zack Tian Order Date: 06/05/2024 History: fever cough COMPARISON: Chest radiograph performed 02 June 2024. FINDINGS: The lungs are well-expanded. The heart is enlarged and there is mild to moderate central pulmonary vascular prominence. No pneumothorax or consolidation seen no pleural effusion. Patient likely status post distal right clavicular resection. IMPRESSION: Cardiomegaly with probable mild pulmonary vascular congestion. No consolidative process. ANALYST Final Signed by: Won Morales MD Signed (Electronic Signature): 06/05/2024 1:28 pm Vital Signs Most recent to oldest [Refer ence Range]: 1 2 Level of Consciousness Alert (06/05/24 1:00 PM) Orientation Assessment Oriented x 4 (06/05/24 1:00 PM) Environmental Safety Implemented Adequat e room lighting, Bed in low position, Call device within reach, Personal items within reach, Traffic path in room free of clutter, Upper/Half length side rails for bed mobility, Wheels locked (06/05/24 1:59 PM) Adequate room lighting, Bed in low position, Call device within reach, Personal items within reach, Traffic path in room free of clutter, Upper/Half length side rails for bed mobility, Wheels locked (06/05/24 1:00 PM) Temperature Oral [35.8-37.3 degC] 36.9 degC (06/05/24 12:15 PM) Peripheral Pulse Rate [60-10 0 bpm] 102 bpm *HI* (06/05/24 1:59 PM) 98 bpm (06/05/24 12:15 PM) Respiratory Rate [14-20 br/min] 20 br/mi n (06/05/24 1:59 PM) 20 br/min (06/05/24 12:15 PM) Blood Pressure [90-120/60-80 mmHg] 110/70mmHg (06/05/24 1:59 PM) 136/68mmHg *HI* (06/05/24 12:15 PM) Mean Arterial Pressure, Cuff [70-110 mmHg] 83 mmHg (06/05/24 1:59 PM) 91 mmHg (06/05/24 12:15 PM) Social History Social History Type Response Smoking Status Former smoker, quit more than 30 days ago entered on: 12/15/23 Sex Male Sex Representation Male (finding) Hospital Discharge Instructions Patient Education 06/05/2024 14:37:28 Influenza, Adult Influenza, Adult Influenza, also called [...] health care provider may recommend: ??? Taking asxx-dyx-yzvceeq medicines. ??? Drinking plenty of fluids. In [...] and low-calorie sports drinks. ??? Eat bland, qldi-xc-tmepos foods in small amounts as you are able. These foods include bananas, applesauce, rice, lean meats, toast, and crackers. ??? Avoid drinking fluids that contain a lot of sugar or caffeine, such as energy drinks, regular sports drinks, and soda. ??? Avoid alcohol. ??? Avoid spicy or fatty foods. General instructions ??? Take fumd-xdc-iowqrpr and prescription medicines only as told by [...] water are not available, use alcohol-based hand underground drill operator. ??? Keep all follow-up visits. This is [...] provider. Document Revised: 01/06/2021 Document Reviewed: 01/06/2021 Elsevier Patient Education ?? 2022 [employer] Follow Up Care 06/05/2024 11:59:41 With:Grey Tomas Address: [address] [place] [address]- When: Unknown Patient Care team information Care Team Personnel Name: Grey Tomas Position: No Access Member Role: Informed Provider Address: [address] [place] [address]- Insurance Providers Guarantor name: PASQUALE HUFFMAN Health Plan Information #: 1 Payer: [facility] Medicare Solutions Member Number: [id number] Policy Number: NA Health Plan Information #: 2 Payer: [facility] Medicare Solutions Member Number: [id number] Policy Number: NA
--- OUTSIDE RECORDS SUMMARY | 2024-06-14 16:43 | XMS_ITS | Encounter Summary ---
Author Organization [facility] Address [address] [facility] [place] [address] Care Team Providers Care Curriculum Counselor Name Role Phone Viraj Romeo Primary Care Provider [phone] Reason for Visit * Reason Onset Date Comments Medication Management 12/19/2021 Encounter Details Date Type Department Care Team (Late st Contact Info) Description 12/19/2021 Telephone [facility] - [address] [address] [place] [address] [address] Medication Management Social History Tobacco Use Types Packs/Day Years [...] encounter Miscellaneous Notes * Telephone Encounter - Loyd Thao MD - 12/19/2021 4:05 PM CDT Patient was having frequent breakthrough reflux symptoms with omeprazole. If Dexilant is cost prohibitive then would recommend trying Prevacid 30 mg p.o. b.i.d. for 12 weeks. If this is not affordable than check on AcipHex 20 mg p.o. b.i.d.. * Telephone Encounter - Juan R Douglass RN - 12/19/2021 9:52 AM CDT Dexilant is not affordable even with his insurance, the patient requests we reorder Omeprazole. documented in this encounter Plan of Treatment Not on file documented as of this encounter Visit Diagnoses Not on filedocumented in this encounter Care Teams Curriculum Counselor Relationship Specialty Start Date End Date Viraj Romeo PA [address] [place] [address] PCP - General 12/28/20 documented as of this encounter
--- OUTSIDE RECORDS SUMMARY | 2024-06-14 16:43 | XMS_ITS | Encounter Summary ---
Author Organization [facility] Address [address] [facility] [place] [address] Care Team Providers Care Kettle Operator Head Name Role Phone Unavailable Primary Care Provider Unavailabl e Encounter Details Date Type Department Care Team (Late st Contact Info) Description 08/25/2020 Orders Only [facility] - COVID Vax [address] [place] [address] Adryan Polk MD [address] [facility] [address] [place] [address] Need for vaccination Social History Tobacco Use Types Packs/Day Years [...] as of this encounter Visit Diagnoses Diagnosis Need for vaccination Need for prophylactic vaccination and inoculation against unspecified single disease documented in this encounter
--- OUTSIDE RECORDS SUMMARY | 2024-06-14 16:43 | XMS_ITS ---
Care Plan - [facility] Created on: June 14, 2024 PASQUALE HUFFMAN : 1945 Sex: Male Author Organization [facility] Address [address] [place] [address] Phone Care Team Providers Care Programmer Name Role Phone GRACIE ESQUEDA DO [phone]
--- OUTSIDE RECORDS SUMMARY | 2024-06-14 16:43 | XMS_ITS | Encounter Summary ---
Author Organization [facility] Address [address] [place] [address] Care Team Providers Care Regional Retail Sales Manager Name Role Phone Viraj Romeo Primary Care Provider [phone] Reason for Visit * Reason Onset Date Comments Update 02/14/2022 Encounter Details Date Type Department Care Team (Late st Contact Info) Description 02/14/2022 Telephone [facility] - [address] [address] [place] [address] [address] Update Social History Tobacco Use Types Packs/Day Years [...] encounter Miscellaneous Notes * Telephone Encounter - Zelda Batista APRN-ALICIA - 02/14/2022 1:04 PM CDT Omeprazole sent to mail order pharmacy on file. Instruct the patient to follow a GERD diet and eat smaller more frequent meals. Have him call with an update in one month or sooner if symptoms worsen. * Telephone Encounter - Juan R Douglass RN - 02/14/2022 9:37 AM CDT Patient reporting constant LUQ pain under ribcage and loose stool after eating a full meal. He believes it may be related to switching medications earlier this year. He reports the prevacid he ended up with after insurance was involved is not working very well for reflux. He would like to go backon omeprazole and see how he feels after a few weeks. He does understand that he still needs to come in for the Nov ov we set up as the flank pain may not be tied directly to his reflux. documented in this encounter Plan of Treatment Not on file documented as of this encounter Visit Diagnoses Not on filedocumented in this encounter Care Teams Regional Retail Sales Manager Relationship Specialty Start Date End Date Viraj Romeo PA [address] [place] [address] PCP - General 12/28/20 documented as of this encounter
--- OUTSIDE RECORDS SUMMARY | 2024-06-14 16:43 | XMS_ITS | Clinical Summary ---
Author Organization [facility] Address [address] [facility] [place] [address] Care Team Providers Care Plasterer Spray Gun Name Role Phone Viraj Romeo Primary Care Provider [phone] Source Comments [facility],non-owned Affiliates and Associated Physician Practices is amultiple site organization consisting of ambulatory clinics and hospital sitesin [place], [place], [place] and [place]. This disclosure is being madepursuant to the Care Everywhere program and may not contain all information available regarding this patient. Last updated 18.[facility] Allergies Active Allergy Reactions Criticality Noted Date [...] 11/08/2021 8:58 AM CDT Plan of Treatment Health Maintenance Due Date Last Done Comments DTAP/TDAP/TD VACCINES (1 - Tdap) 1962 PNEUMOCOCCAL VACCINE 50+ (1 of 1 - PCV) 1993 ZOSTER VACCINE (1 of 2) 1993 Respiratory Syncytial Virus (RSV) Vaccine Pt: or over 60 yrs (1 - 1-dose 75+ series) 2018 COVID-19 VACCINE ( - 2023- season) 2024 INFLUENZA VACCINE (#1) 2024 0, 03/30/2019, 03/17/2018, Additional history exists DEPRESSION SCREENING 06/03/2024 MEDICARE AWV ? CALENDAR YEAR 2024 HEPATITIS B VACCINE Aged Out No longe r eligible based on patient's age to complete this topic HIB VACCINE Aged Out No longer eligi ble based on patient's age to complete this topic HPV VACCINE Aged Out No longer eligi ble based on patient's age to complete this topic MENINGOCOCCAL (Group B) VACCINE Aged Out No longer eligible based on patient's age to complete this topic MENINGOCOCCAL VACCINE Aged Out No josie dwayne eligible based on patient's age to complete this topic Care Teams Plasterer Spray Gun Relationship Specialty Start Date End Date Viraj Romeo PA [address] [place] [address] PCP - General 12/28/20
--- OUTSIDE RECORDS SUMMARY | 2024-06-14 16:43 | XMS_ITS | Encounter Summary ---
Author Organization [facility] Address [address] [facility] [place] [address] Care Team Providers Care Nurse Administrator Name Role Phone Unavailable Primary Care Provider Unavailabl e Reason for Visit * Reason Comments Refill Request Encounter Details Date Type Department Care Team (Late st Contact Info) Description 05/12/2020 Refill [place] [id number] [phone] Adilson Cutler, PAAutumnC Dept of Neurological Surgery [address] [facility] [address] [place] [address] Refill Request Social History Tobacco Use Types [...] encounter Miscellaneous Notes * Telephone Encounter - Carmen Griffin - 05/12/2020 9:49 AM CST Patient is requesting a refill on his tizanidine 4mg RECORDER documented in this encounter Plan of Treatment Not on file documented as of this encounter Visit Diagnoses Not on filedocumented in this encounter
--- OUTSIDE RECORDS SUMMARY | 2024-06-14 16:43 | XMS_ITS | Encounter Summary ---
Author Organization [facility] Address [address] [place] [address] Care Team Providers Care Sports Book Server Name Role Phone Unavailable Primary Care Provider Unavailabl e Reason for Visit * Reason Comments Refill Request Encounter Details Date Type Department Care Team (Late st Contact Info) Description 12/03/2020 Refill [facility] [address] [facility] [place] [address] Zelda Batista, ADMINISTRATIVE ACCOUNTANT-[facility] [address] [facility] [address] [place] [address] Refill Request Social History Tobacco Use [...] encounter Visit Diagnoses 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
--- OUTSIDE RECORDS SUMMARY | 2024-06-14 16:43 | XMS_ITS | Encounter Summary ---
Author Organization [facility] Address [address] [facility] [place] [address] Care Team Providers Care International Trade Specialist Name Role Phone Viraj Romeo Primary Care Provider [phone] Reason for Visit * Reason Comments Refill Request Encounter Details Date Type Department Care Team (Late st Contact Info) Description 08/25/2021 Refill [facility] [address] [facility] [place] [address] Zelda Batista, DATA SCIENCES DIRECTOR-[facility] [address] [facility] [address] [place] [address] Refill Request Social History Tobacco Use [...] dysplasia Pollard's esophagus documented in this encounter Care Teams International Trade Specialist Relationship Specialty Start Date End Date Viraj Romeo PA [address] [place] [address] PCP - General 12/28/20 documented as of this encounter
--- OUTSIDE RECORDS SUMMARY | 2024-06-14 16:43 | XMS_ITS | Encounter Summary ---
Author Organization [facility] Address [address] [facility] [place] [address] Care Team Providers Care Diesel Roller Operator Name Role Phone Viraj Romeo Primary Care Provider [phone] Reason for Visit * Auth/Cert Specialty Diagnoses / Procedures Referred By Alcira forrest Referred To Contact Procedures COLONOSCOPY SCREEN ESOPHAGOGASTRODUODENOSCOPY (EGD) DIAGNOSTIC Referral ID Status Reason Start Date Expiration Date Visits Re quested Visits Authorized [id number] 1 1 Encounter Details Date Type Department Care Team (Late st Contact Info) Description 11/08/2021 9:32 AM CDT Anesthesia Event [facility] - Endoscopy Services [address] [place] [address] Clive Armas, DO [address] [place] [address] Nikkie Herman APRN-ESTHETICIAN PERMANENT MAKEUP ARTIST [address] [place] [address] Anesthesia Record Procedure Summary Procedure Name Responsible Anesthesiologist Anesthesia Start Time Anesthesia Stop Time COLONOSCOPY SCREEN Clive Armas DO 11/08/21 0932 1007 Events Date Time Event Comment 11/08/2021 0850 0932 An Start 0932 Out OR Start Data 0933 PT Reassessment 0938 Timeout Anesthesia part icipated in timeout at the time documented in the record by nursing. 1007 Electnc Sig This record is electronically signed by the providers listed under staff. 1007 Out OR Stop Data 1007 An Stop Meds Name Total lidocaine 1% (PF) injection (50 mg/5mL) 100 mg propofol (DIPRIVAN) injection 10mg/ml (E NDO USE) 27 mL 0.9% NaCl infusion 300 mL * Agents Name Exp. N2O O2 Flow - Auxiliary O2 * Blood No blood administrations on file. Lines, Drains, and Airways Type Details Placement Removal Peripheral IV Date: 11/08/21; Time : 858; Orientation: Right; Placed By: Briseida newton; Tolerance: Well 11/08/21 0859 by Shereen Sanchez RN 11/08/21 1044 by Zuleima Ruff RN documented in this encounter Social History Tobacco [...] on file documented as of this encounter Progress Notes * Nikkie Herman APRN-MARKO - 11/08/2021 10:07 AM CDT ANESTHESIA POSTOP EVALUATION NOTE Procedure: COLONOSCOPY SCREEN ESOPHAGOGASTRODUODENOSCOPY (EGD) DIAGNOSTIC Samuel Sanchez is a 76 year old male Patient Vitals for the past 6 hrs: BP Temp Pulse Resp SpO2 Pain Rating Score #1 Pain Scale/Observation 11/08/21 0847 139/92 98.7 ??F (37.1 ??C) 74 18 98 % -- -- 11/08/21 0858 -- -- -- -- -- 0 N 11/08/21 0936 122/76 -- -- -- -- -- -- 11/08/21 0937 -- -- -- -- 98 % -- -- 11/08/21 0941 135/89 -- -- -- -- -- -- 11/08/21 0942 -- -- -- -- 99 % -- -- 11/08/21 0947 131/86 -- -- -- 99 % -- -- 11/08/21 0950 109/73 -- -- -- -- -- -- 11/08/21 0952 -- -- -- -- 98 % -- -- 11/08/21 0955 97/68 -- -- -- -- -- -- 11/08/21 0957 -- -- -- -- 98 % -- -- 11/08/21 1000 96/67 -- -- -- -- -- -- 11/08/21 1002 -- -- -- -- 98 % -- -- 11/08/21 1005 94/66 -- -- -- -- -- -- 11/08/21 1007 -- -- -- -- 98 % -- -- Anesthesia Type: MAC * No Diagnosis Codes entered * Mental Status: awake, alert and neurologic status has returned to expected level of consciousness Neuro Status: No numbness, tingling or visual disturbances Respiratory Function: natural Cardiac Function: stable Postop Pain: adequate Postop Hydration: adequate Postop Nausea: none Assessment: no apparent anesthetic complications, patient tolerated procedure well and no evidence of recall Patient Disposition: Release from Anesthesia Care COMPLICATIONS: No complications documented. * Nikkie Herman APRN-ESTHETICIAN PERMANENT MAKEUP ARTIST - 11/08/2021 8:41 AM CDT ANESTHESIA PREOPERATIVE EVALUATION NOTE Procedure: COLONOSCOPY SCREEN ESOPHAGOGASTRODUODENOSCOPY (EGD) DIAGNOSTIC Vitals: No data found. LMP: No LMP for male patient. OB Status: unknown ANESTHESIA PRE-EVALUATION NOTE Physical Exam: Orientation X3 Airway/Mallampati Score: III Mouth Opening Distance: 2.5 fingerwidths Neck ROM: full TM Distance: < 3 FB Teeth: caps/crowns Heart: normal - S1 S2 Lungs: clear to ausculation bilaterally Abdomen Exam: normal Review of Systems: History of anesthetic complications: No GERD: Yes, well controlled Poor Exercise Tolerance: No Recent Chest Pain: No Shortness of Breath: No AICD/Pacemaker: No Renal Disease: No Diagnostic Tests: Lab(s) reviewed: Yes. ANESTHESIA PLAN ASA Score: 2 NPO Status: No solids since midnight and No liquids within 2 hours Anesthesia Plan: MAC Planned Induction: intravenous Planned Postop Destination: endo Anesthetic plan was discussed with: patient Anesthetic Plan discussion was: Consented The patient's procedural Anesthetic Plan was discussed with the ESTHETICIAN PERMANENT MAKEUP ARTIST and anesthesiologist. BMI, Height, Weight Tobacco History Estimated body mass index is 26.25 kg/m?? as calculated from the following: Height as of 03/14/20: 1.854 m (6' 1 ). Weight as of 03/14/20: 90.3 kg (199 lb). Social History Tobacco Use Smoking Status Never Smoker Smokeless Tobacco Never Used Alcohol History Drug History Social History Substance and Sexual Activity Alcohol Use Yes Social History Substance and Sexual Activity Drug Use Never Outpatient Medications: Inpatient Medications: No outpatient medications have been marked as taking for the 11/08/21 encounter (Hospital Encounter). No current facility-administered medications for this encounter. Allergies: Allergies Allergen Reactions ??? Hydrocodone Itching ??? Vicodin [Hydrocodone-Acetaminophen] Itching ??? Perfume [Other] Shortness of Breath and Cough Relevant Problems No relevant active problems Problem List: Patient Active Problem List Diagnosis Date Noted ??? Abnormal weight loss 03/11/2020 Priority: Not Prioritized ??? Change in bowel function 03/11/2020 Priority: Not Prioritized ??? Migraine 06/10/2012 Medical History: Past Medical History: Diagnosis Date ??? Enlarged prostate ??? GERD (gastroesophageal reflux disease) ??? Kidney stones Surgical History: Past Surgical History: Procedure Laterality Date ??? BICEPS TENODESIS, SHOULDER Left ??? COLONOSCOPY 03/14/2020 COLONOSCOPY SCREEN ??? ENDOSCOPY, UPPER 03/14/2020 ESOPHAGOGASTRODUODENOSCOPY (EGD) DIAGNOSTIC ??? Orchiectomy testicle removed ??? Rotator Cuff Repair Right ??? 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 unknown OB History No obstetric history on file. Covid Vaccine: Lab Results: No results found for requested labs within last 120 days. No results found for requested labs within last 120 days. documented in this encounter Miscellaneous Notes * Anesthesia Transfer of Care - Nikkie Herman APRN-MARKO - 11/08/2021 10:07 AM CDT ANESTHESIA TRANSFER OF CARE NOTE Today's Date: 11/08/2021 Date of : 1945 Patient: Samuel Sanchez Procedure(s): COLONOSCOPY SCREEN ESOPHAGOGASTRODUODENOSCOPY (EGD) DIAGNOSTIC Surgeon(s): Primary: Loyd Thao MD Preop Diagnosis: * No Diagnosis Codes entered * Pre-op Meds (From admission, onward) Start Stop Status Route Frequency Ordered 11/08/21929 0.9% NaCl infusion -- Dispensed IV CONTINUOUS 11/08/2185111/08/21937 lidocaine PF (Xylocaine MPF) 1 % injection -- Sent IV PRN 11/08/2193711/08/21937 propofol (Diprivan) injection -- Sent IV CONTINUOUS PRN 11/08/21937 * No Diagnosis Codes entered * . Allergies Allergen Reactions ??? Hydrocodone Itching ??? Vicodin [Hydrocodone-Acetaminophen] Itching ??? Perfume [Other] Shortness of Breath and Cough Vitals: Patient Vitals for the past 3 hrs: BP Temp Pulse Resp SpO2 Pain Rating Score #1 11/08/21 1007 -- -- -- -- 98 % -- 11/08/21 1005 94/66 -- -- -- -- -- 11/08/21 1002 -- -- -- -- 98 % -- 11/08/21 1000 96/67 -- -- -- -- -- 11/08/21 0957 -- -- -- -- 98 % -- 11/08/21 0955 97/68 -- -- -- -- -- 11/08/21 0952 -- -- -- -- 98 % -- 11/08/21 0950 109/73 -- -- -- -- -- 11/08/21 0947 131/86 -- -- -- 99 % -- 11/08/21 0942 -- -- -- -- 99 % -- 11/08/21 0941 135/89 -- -- -- -- -- 11/08/2137 -- -- -- -- 98 % -- 11/08/2136 122/76 -- -- -- -- -- 11/08/21 0858 -- -- -- -- -- 0 11/08/21 0847 139/92 98.7 ??F (37.1 ??C) 74 18 98 % -- Lines, Drains, and Airways Type Details Placement Removal Peripheral IV Date: 11/08/21; Time: 858; Orientation: Right; Location: Antecubital; Placed By: Briseida newton; Gauge: 22 Gauge ; Locals: None; Tolerance: Well 11/08/21 0859 by Shereen Sanchez RN Intraprocedure I/O Totals Intake propofol (DIPRIVAN) injection 10mg/ml (ENDO USE) 27.00 mL 0.9% NaCl infusion 300.00 mL Total Intake 327 mL Patient Transfer Location: Endo Recovery Transport Airway: supplemental O2 and spontaneous respirations Complications: None Handoff Given? Yes Checklist or Protocol - The owusu handoff elements that must be included in the transfer of care checklist include: 1. Identification of patient. 2. Identification of responsible practitioner (PACU nurse or advanced practitioner). 3. Discussion of pertinent medical history. 4. Discussion of the surgical/procedure course (procedure, reason for surgery, procedure performed). 5. Intraoperative anesthetic management and issue/concerns. 6. Expectations/Plans for the early post-procedure period. 7. Opportunity for questions and acknowledgement of understanding of report from the receiving PACUteam. LIZANDRO Pepper documented in this encounter Plan of Treatment [...] 11/08/2021 9:00 AM CDT 20 mL/ hr lidocaine PF (Xylocaine MPF) 1 % injection Intravenous, PRN, Starting on Sat11/08/21 at 0938, Until Sat11/08/21 at 1007, Anesthesia Intra-op $ Given 11/08/2021 9:38 AM CDT 100 mg propofol (Diprivan) injection Intravenous, CONTINUOUS PRN, Starting on Sat11/08/21 at 0938, Until Sat11/08/21 at 1007, Anesthesia Intra-op $ New Bag/Syringe 11/08/2021 9:38 AM CDT documented in this encounter Care Teams Diesel Roller Operator Relationship Specialty Start Date End Date Viraj Romeo PA [address] [place] [address] PCP - General 12/28/20 documented as of this encounter
--- OUTSIDE RECORDS SUMMARY | 2024-06-14 16:43 | XMS_ITS | Encounter Summary ---
Author Organization [facility] Address [address] [place] [address] Care Team Providers Care Associate Director Data & Analytics Name Role Phone Viraj Romeo Primary Care Provider [phone] Reason for Visit * Reason Comments Refill Request Encounter Details Date Type Department Care Team ([facility] Contact Info) Description 05/18/2023 Refill [facility] - [address] [address] Zelda Batista, [facility]ORDIN[facility] [id number] [place] [address] Refill Request Social History Tobacco Use [...] on filedocumented in this encounter Care Teams Associate Director Data & Analytics Relationship Specialty Start Date End Date Viraj Romeo PA [address] [place] [address] PCP - General 12/28/20 documented as of this encounter
--- OUTSIDE RECORDS SUMMARY | 2024-06-14 16:44 | XMS_ITS | Encounter Summary ---
Author Organization [facility] Address [address] [facility] [place] [address] Care Team Providers Care Signal Timer Name Role Phone Unavailable Primary Care Provider Unavailabl e Reason for Visit * Reason Comments MIGRAINE Encounter Details Date Type Department Care Team (Late st Contact Info) Description 05/17/2011 2:20 PM ROTARY MACHINE OPERATOR Office Visit [facility] Neurosciences [address] [place], [place] [id number] [place] [id number] [facility] [address] [place] [address] Migraine (Primary Dx) Social History Tobacco Use Types Packs/Day Years Used Date Smoking Tobacco: Never Assessed Sex and Gender Information Value Date Recorded Sex Assigned at Male 08/22/2021 3:52 PM CDT Gender Identity Male 08/22/2021 3:52 PM CDT Sexual Orientation Not on file documented as of this encounter Last Filed Vital Signs Vital Sign Reading Time Taken Comments Blood Pressure 116/68 05/17/2011 3:10 PM ROTARY MACHINE OPERATOR Pulse 72 05/17/2011 3:10 PM ROTARY MACHINE OPERATOR Temperature - - Respiratory Rate 12 05/17/2011 3:10 PM ROTARY MACHINE OPERATOR Oxygen Saturation - - Inhaled Oxygen Concentration - - Weight - - Height - - Body Mass Index - - documented in this encounter Progress Notes * Lui Ledesma MD - 05/17/2011 3:06 PM CST Office Visit Samuel Isaac Daniel is a 65 y.o. male who presents for his headaches. He has gone months without headaches. Then in April he had 3 and then last week had a 3 day headache. They are still rapidly aborted with Imitrex. He did have a renal stone but was very close to starting the TPM and his urologist thought it was unrelated. No current outpatient prescriptions on file prior to visit. No past medical history on file. Review of Systems - General ROS: negative General Exam: VS: There were no vitals taken for this visit. General: Well-developed, well-nourished Neurological Exam: Mental status: Alert and oriented x 3. Recent and remote memory are normal. Attention and concentration are normal. Speech is fluent and comprehension is intact. Fund of knowledge is good. Ocular: Disks are normal with normal posterior segments. CN II: Visual acuity is full without visual field cut. Pupils equal and reactive to light. CN III, IV, : Extraocular movements are full. CN V: Facial sensation is intact. CN VII: Normal facial strength and tone. CN VIII: Hearing is intact to confrontation. CN XI, X: Palate elevates symmetrically, uvula midline CN XI: Normal SCM and trapezius strength CN XII: Tongue midline without atrophy Motor: Strength is grade 5/5 throughout. Bulk and tone are normal. No tremor or abnormal movement seen. Sensory: Intact to light touch, pin prick and proprioception throughout. Reflexes: Biceps 2+, triceps 2+, brachioradialis 2+, knees 2+, and ankles 2+. Babinski responses are flexor bilaterally. Coordination: Normal without evidence of dysmetria. Gait and Station: Normal for age. Impression: Stable migraines. Plan: Continue Topamax 25mg QHS Imitrex 100mg PRN, may take with NSAIDs RTO 1 year RY MACHINE OPERATOR documented in this encounter Plan of Treatment Not on file documented as of this encounter Visit Diagnoses Diagnosis Migraine- Primary Migraine, unspecified, without mention of intractable migraine without mention of status migrainosus documented in this encounter
--- OUTSIDE RECORDS SUMMARY | 2024-06-14 16:44 | XMS_ITS | Encounter Summary ---
Author Organization [facility] Address [address] [facility] [place] [address] Care Team Providers Care Manager Mass Name Role Phone Unavailable Primary Care Provider Unavailabl e Encounter Details Date Type Department Care Team (Latest Contact Info) Description 03/16/2020 Travel Social History Tobacco Use Types Packs/Day [...] Exposure Response Date Recorded In the last month, have you been in contact with someone who was confirmed or suspected to have Coronavirus / COVID-19? No / Unsure 03/16/2020 9:50 AM CDT documented as of this encounter Plan of Treatment Not on file documented as of this encounter Visit Diagnoses Not on filedocumented in this encounter
--- OUTSIDE RECORDS SUMMARY | 2024-06-14 16:44 | XMS_ITS | Encounter Summary ---
Author Organization [facility] Address [address] [facility] [place] [address] Care Team Providers Care Domestic Violence Counselor Name Role Phone Unavailable Primary Care Provider Unavailabl e Reason for Visit * Reason Onset Date Comments MEDICATION REFILL 11/07/2015 Encounter Details Date Type Department Care Team (Late st Contact Info) Description 11/07/2015 Refill [facility] Neurosciences [address] [place], [place] [phone] [place] [address] [place] [address] MEDICATION REFILL Social History Tobacco Use Types Packs/Day Years Used Date Smoking Tobacco: Never Alcohol Use Standard Drinks/Week Comments Not Asked 0 (1 standard drink = 0.6 oz pur e alcohol) Sex and Gender Information Value Date Recorded Sex Assigned at Male 08/22/2021 3:52 PM CDT Gender Identity Male 08/22/2021 3:52 PM CDT Sexual Orientation Not on file documented as of this encounter Miscellaneous Notes * Telephone Encounter - Estefania Chase - 11/10/2015 1:29 PM CDT I notified the that the medication has been sent in, she understood. * Telephone Encounter - Estefania Chase - 11/07/2015 10:27 AM CDT Last OV 12/20/2014 Unknown last refill, it has been a long time documented in this encounter Plan of Treatment Not on file documented as of this encounter Visit Diagnoses Not on filedocumented in this encounter
--- OUTSIDE RECORDS SUMMARY | 2024-06-14 16:44 | XMS_ITS | Encounter Summary ---
Author Organization [facility] Address [address] [place] [address] Care Team Providers Care Auditor Medical Claims Name Role Phone Unavailable Primary Care Provider Unavailabl e Reason for Visit * Reason Onset Date Comments Medication Problem 12/13/2011 Encounter Details Date Type Department Care Team (Late st Contact Info) Description 12/13/2011 Telephone [facility] Neurosciences [address] [place] [address] [place] [address] [facility] [address] [place] [address] Medication Problem Social History Tobacco Use Types Packs/Day Years Used Date Smoking Tobacco: Never Assessed Sex and Gender Information Value Date Recorded Sex Assigned at Male 08/22/2021 3:52 PM CDT Gender Identity Male 08/22/2021 3:52 PM CDT Sexual Orientation Not on file documented as of this encounter Miscellaneous Notes * Telephone Encounter - Albina Edwards - 12/13/2011 2:47 PM CDT Pt aware of doctor's recommendations. Escribed Topamax to [facility] per pt's request. * Telephone Encounter - Lui Ledesma MD - 12/13/2011 1:37 PM CDT Restarting the TPM is ok with me if he understands the risk. If the stones recur then of course he would need to come off. He should drink plenty of water to lower the risk. thx * Telephone Encounter - Albina Edwards - 12/13/2011 1:08 PM CDT Pt called stating that the new medication Amitriptyline 25mg 1/2 tab is not agreeing with him. He was taking them for a few weeks and would feel groggy and spacey. He decided that he did not want to take the medication anymore and stopped. He would like to know if he could go back on the Topamax. Pt states that he would rather risk the side effect of kidney stones than feel this way. Please advise. documented in this encounter Plan of Treatment Not on file documented as of this encounter Visit Diagnoses Not on filedocumented in this encounter
--- OUTSIDE RECORDS SUMMARY | 2024-06-14 16:44 | XMS_ITS | Encounter Summary ---
Author Organization [facility] Address [address] [place] [address] Care Team Providers Care Microfabrication Engineer Manager Name Role Phone Unavailable Primary Care Provider Unavailabl e Reason for Visit * Reason Comments MIGRAINE Encounter Details Date Type Department Care Team (Late st Contact Info) Description 12/20/2014 11:20 AM CDT Office Visit [facility] Neurosciences [address] [place], [place] [phone] [place] [address] [place] [address] Migraine without status migrainosus, not intractable, unspecified migraine type (Primary Dx) Social History Tobacco Use Types [...] Sign Reading Time Taken Comments Blood Pressure 114/82 12/20/2014 11:39 AM CDT Pulse 80 12/20/2014 11:39 AM CDT Temperature - - Respiratory Rate - - Oxygen Saturation - - Inhaled Oxygen Concentration - - Weight 106.6 kg (235 lb) 12/20/2014 11:39 AM CDT Height 185.4 cm (6' 1 ) 12/20/2014 11:39 AM CDT Body Mass Index 31 12/20/2014 11:39 AM CDT documented in this encounter Patient Instructions * Patient Instructions* Che Armendariz - 12/20/2014 12:00 PM CDT Call physician if symptoms worsen or with any questions. Take Medications as prescribed. For descriptions of a variety of neurological conditions please visit: [email or web address] documented in this encounter Progress Notes * Lui Ledesma MD - 12/20/2014 11:53 AM CDT Office Visit Samuel Sanchez is a 69 y.o. male who presents for his headaches. He gets 1-2 FREDERICK per month on average, but unpredictable. He has stopped all the medications due to concerns of side effects, etc. He keeps the Imitrex on hand but does not take it much. He has overall been doing well. Imitrex PRN No past medical history on file. Review of Systems - General ROS: negative General Exam: VS: BP 114/82 mmHg Pulse 80 Wt 106.595 kg (235 lb) BMI 31.01 kg/m2 General: Well-developed, well-nourished Neurological Exam: Mental status: Alert and oriented x 3. Recent and remote memory are normal. Attention and concentration are normal. Speech is fluent and comprehension is intact. Fund of knowledge is good. CN VII: Normal facial strength and tone. CN VIII: Hearing is intact to confrontation. Motor: Strength is antigravity throughout. Bulk and tone are normal. No tremor or abnormal movementseen. Coordination: Normal without evidence of dysmetria. Gait and Station: Normal for age. Impression: Stable migraines, infrequent and well-controlled with PRN medications. He has no neurological or visual deficits during the events. We will continue the same medications below. He is released to workwithout restriction in his current occupation. Plan: Imitrex 50 or 100mg PRN, may take with NSAIDs RTO 1-2 years for check-in documented in this encounter Plan of Treatment Not on file documented as of this encounter Visit Diagnoses Diagnosis Migraine without status migrainosus, not intractable, unspecified migraine type- Primary documented in this encounter
--- OUTSIDE RECORDS SUMMARY | 2024-06-14 16:44 | XMS_ITS | Encounter Summary ---
Author Organization [facility] Address [address] [facility] [place] [address] Care Team Providers Care Planer Setter Name Role Phone Unavailable Primary Care Provider Unavailabl e Reason for Visit * Reason Onset Date Comments Question 05/05/2013 Encounter Details Date Type Department Care Team (Late st Contact Info) Description 05/05/2013 Telephone [facility] Neurosciences [address] [place], [place] [id number] [place] [address] [facility] [address] [place] [address] Question Social History Tobacco Use Types Packs/Day Years [...] encounter Miscellaneous Notes * Telephone Encounter - Eloina Delgado - 05/06/2013 9:51 AM CST I faxed over the office note with the reference number [id number]. Fax number [phone] HER TOOLER * Telephone Encounter - Jodi Lan - 05/05/2013 10:23 AM CST Patient called inquiring about a letter he requested from Dr. Ledesma for his employer, the [employer]. Patient stated he gave a copy of the letter from the [employer] to our office for completion. HER TOOLER documented in this encounter Plan of Treatment Not on file documented as of this encounter Visit Diagnoses Not on filedocumented in this encounter
--- OUTSIDE RECORDS SUMMARY | 2024-06-14 16:44 | XMS_ITS | Encounter Summary ---
Author Organization [facility] Address [address] [place] [address] Care Team Providers Care Import Specialist Name Role Phone Unavailable Primary Care Provider Unavailabl e Reason for Visit * Reason Onset Date Comments Results 03/16/2020 egd/colon biopsy Encounter Details Date Type Department Care Team (Late st Contact Info) Description 03/16/2020 Telephone [facility] [employer] [facility] [address], [address] [place] [address] [place] [address] [facility] [address] [place] [address] Results (egd/colon biopsy) Social History Tobacco Use Types Packs/Day Years [...] AM CDT documented as of this encounter Miscellaneous Notes * Addendum Note - Darcie Johansen RN - 03/22/2020 1:50 PM CDTAddended by: DARCIE JOHANSEN on: 03/22/2020 01:50 PM Modules accepted: Orders * Telephone Encounter - Darcie Johansen RN - 03/22/2020 1:46 PM CDT Omeprazole 40mg bid #180 called to pharmacy. No PA required. * Telephone Encounter - Darcie Johansen RN - 03/21/2020 2:49 PM CDT Nexium is not covered * Telephone Encounter - Darcie Johansen RN - 03/21/2020 11:07 AM CDT Pharmacy called ([facility] [phone])- Please clarify omeprazole, dose and strength. * Telephone Encounter - Bethanie Trinh RN - 03/16/2020 1:24 PM CDT Results and recommendations called to patient. On recall list for colon 1 year. * Telephone Encounter - Bethanie Trinh RN - 03/16/2020 1:24 PM CDT ----- Message from Rojas Zuniga MD sent at 03/16/2020 10:16 AM CDT ----- Please let patient know, his H pylori was negative. 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 I have increased his Nexium from 20 daily to 40 b.i.d. which I have ordered. He should continue this in addition to Pepcid 40 every evening. I have also ordered a CT abdomen and pelvis given his abdominal pain and weight loss if you could please schedule this. ---- Regarding his colonoscopy all 14 polyps were benign. He needs a repeat colonoscopy in 1 year given the large number of polyps noted and the poor prep. . Please schedule him in clinic for follow-up in 2 months to reassess his pain at that time documented in this encounter Plan of Treatment Not on file documented as of this encounter Visit Diagnoses Not on filedocumented in this encounter
--- OUTSIDE RECORDS SUMMARY | 2024-06-14 16:44 | XMS_ITS | Encounter Summary ---
Author Organization [employer] Care Team Providers Care Transmission Supervisor Name Role Phone Viraj Romeo Primary Care Provider Encounter Details Date Type Department Care Team (Latest Contact Info) Description 02/05/2020 Travel Social History Tobacco Use Types Packs/Day Years Used Date Smoking Tobacco: Former Alcohol Use Standard Drinks/Week Comments Yes 0 (1 standard drink = 0.6 oz pur e alcohol) Sex and Gender Information Value Date Recorded Sex Assigned at Not on file Legal Sex Male 7:42 PM CDT Gender Identity Not on file Sexual Orientation Not on file COVID-19 Exposure Response Date Recorded In the last month, have you been in contact with someone who was confirmed or suspected to have Coronavirus / COVID-19? No / Unsure 02/05/2020 11:14 PM CDT documented as of this encounter Plan of Treatment Not on file documented as of this encounter Visit Diagnoses Not on filedocumented in this encounter Care Teams Transmission Supervisor Relationship Specialty Start Date End Date Viraj Romeo PAC [address] [place] [address] PCP - General Physician Sound Art Instructor 11/20/17 10/24/23 documented as of this encounter
--- OUTSIDE RECORDS SUMMARY | 2024-06-14 16:44 | XMS_ITS | Encounter Summary ---
Author Organization [facility] Address [address] [place] [address] Care Team Providers Care Marketing Financial Analyst Name Role Phone Unavailable Primary Care Provider Unavailabl e Reason for Referral * Radiology Services (Routine) - Closed Specialty Diagnoses / Procedures Referred By Contac t Referred To Contact MRI Diagnoses Chronic midline low back pain without sciatica Procedures MRI LUMBAR SPINE WO CONTRAST Adilson Cutler PA-C Dept of Neurological Surgery [address] [place] [address] [place] [phone] Referral ID Status Reason Start Date Expiration Date Visits Re quested Visits Authorized [id number] Closed 03/08/2020 03/08/2021 1 1 Reason for Visit * Reason Comments Pain Back Encounter Details Date Type Department Care Team (Late st Contact Info) Description 03/08/2020 1:00 PM CDT Office Visit [facility] Neurosciences [address] [place] [phone] Adilson Cutler PA-C Dept of Neurological Surgery [address] [place] [address] [place] [phone] Chronic midline low back pain without sciatica (Primary Dx); Gastroesophageal reflux disease with esophagitis, unspecified whether hemorrhage Social History Tobacco Use Types Packs/Day Years [...] Sign Reading Time Taken Comments Blood Pressure - - Pulse - - Temperature - - Respiratory Rate - - Oxygen Saturation - - Inhaled Oxygen Concentration - - Weight 93 kg (205 lb) 03/08/2020 1:38 PM CDT Height 185.4 cm (6' 1 ) 03/08/2020 1:38 PM CDT Body Mass Index 27.05 03/08/2020 1:38 PM CDT documented in this encounter Progress Notes * Adilson Cutler PA-C - 03/08/2020 1:40 PM CDT [facility] New Patient Encounter Patient's Name: Samuel Sanchez : 1945 PCP: ZOILA Espinosa Date: 03/08/2020 Samuel Sanchez is a 74 yo male patient who presents to the office with complaints of back pain x 20 years. Patient reports insidious onset, progressively getting worse over time. Patient denies N/T/Weakness. Denies B/B incontinence. Reports R-lower back pain. Sitting in chair makes pain worse. Relieving: massage. No issues with ambulation. Walks 1-2 miles in mornings. PT (-). Had pain management injections, epidurals, no relief. Tried 2 series of injections, no relief. He is here for back pain. Review of Systems Constitutional: No weight loss, fever, chills, fatigue, weakness, trouble sleeping HEENT: No visual changes, no difficulty hearing, no headache, no head injury Respiratory: No cough, shortness of breath, wheezing, hemoptysis Cardiovascular: No chest pain, palpitations, leg swelling Gastrointestinal: No nausea, vomiting, abdominal pain, diarrhea and blood in stool Genitourinary: No urinary frequency, urgency, dysuria, hematuria, incontinence Musculoskeletal: No calf pain, neck pain, leg cramping, pain into any extremity, joint aches, stiffness, back pain, joint redness, trauma Skin: No rashes or swelling Neurological: No dizziness, fainting, seizures, weakness, numbness, tingling, tremor Endo/Heme/Allergies: No easy bruising or bleeding, cold or heat intolerance, polydipsia Past Medical History Past medical history, past surgical history, allergies, home medications, social history and familyhistory available in chart were reviewed. PMHx: No past medical history on file. Surgical Hx: No past surgical history on file. Medications: ??? aspirin 81 MG tablet ??? Biotin 5 MG TBDP ??? esomeprazole (NEXIUM) 20 MG capsule ??? famotidine (PEPCID) 40 MG tablet ??? methotrexate 2.5 MG tablet ??? multivitamin daily (THERAGRAN) tablet ??? omeprazole (PRILOSEC) 20 MG capsule ??? ranitidine (ZANTAC) 300 MG capsule ??? SUMAtriptan (IMITREX) 100 MG tablet ??? tamsulosin (FLOMAX) 0.4 MG capsule Allergies: Acetaminophen; Hydrocodone; and Vicodin [hydrocodone-acetaminophen] Social Hx: Never smoker, occasional ETOH Family Hx: Adopted, unsure on family hx Exam Ht 1.854 m (6' 1 ) Wt 93 kg (205 lb) BMI 27.05 kg/m2 Alert and cooperative, appears stated age of 74 Skin warm and dry Head atraumatic, OP clear, sclera and conjunctiva clear Heart RRR, no murmurs Lungs clear bilaterally, no respiratory distress Abdomen soft, nontender, + BS Back supple, ROM pain in lateral bending/extension Extremities are atraumatic, nontender Neurologically the patient is awake, A&Ox3 with fluent speech Motor exam demonstrates normal strength and tone throughout Sensory exam reveals intact light touch throughout No clonus SLR: negative bilaterally Studies Unable to review his MRI from 2013, disc does not work Assessment and Plan Patient presents with chronic history of back pain that has progressively got worse over time. Willplan to refer him to physical therapy, ordered MRI scan of the lumbar spine. Also of note he bringsup that he has been dealing with chronic history of acid reflux, was seeing a GI physician which recently retired an asks for referral. Will refer to Dr. Thao, states GERD more consistent now, stomach pains daily. He will need to follow up with Dr. Olvera/Antelmo/Jay if surgical evaluation is warranted. It hasbeen my pleasure assisting in the care of this patient. Adilson Cutler PA-C [facility] [employer] [place] documented in this encounter Plan of Treatment Not on file documented as of this encounter Results * MRI LUMBAR SPINE WO CONTRAST (03/18/2020 [...] 2:47 PM Adilson Cutler PA-C MR ORDERABLES documented in this encounter Visit Diagnoses Diagnosis Chronic midline low back pain without sciatica- Primary Gastroesophageal reflux disease with esophagitis, unspecified whether hemorrhage Chronic midline low back pain without sciatica documented in this encounter
--- OUTSIDE RECORDS SUMMARY | 2024-06-14 16:44 | XMS_ITS | Encounter Summary ---
Author Organization [facility] Address [address] [facility] [place] [address] Care Team Providers Care Cook Helper Name Role Phone Unavailable Primary Care Provider Unavailabl e Reason for Referral * Radiology Services (Routine) - Closed Specialty Diagnoses / Procedures Referred By Contac t Referred To Contact CT Scan Diagnoses Abdominal pain, unspecified abdominal location Procedures CT ABDOMEN [place] [address] [facility] [facility] [address] [place] [address] Referral ID Status Reason Start Date Expiration Date Visits Re quested Visits Authorized [id number] Closed 03/16/2020 03/16/2021 1 1 Reason for Visit * Radiology Services (Routine) - Closed Specialty Diagnoses / Procedures Referred By Contac t Referred To Contact CT Scan Diagnoses Abdominal pain, unspecified abdominal location Procedures CT ABDOMEN [place] [address] [employer] [facility] [employer] [address] [place] [address] Referral ID Status Reason Start Date Expiration Date Visits Re quested Visits Authorized [id number] Closed 03/16/2020 03/16/2021 1 1 Encounter Details Date Type Department Care Team (Latest Contact Info) Description 03/30/2020 9:48 AM CDT - 03/30/2020 11:59 PM CDT Hospital Encounter [facility] Imaging Services - [place] Scan [address] [place] [address] [place] [address] [facility] [address] [place] [address] Discharge Disposition: Home or Self Care Social [...] AM CDT documented as of this encounter Medications at Time of Discharge Medication Sig Dispensed Refills Start Date End Date famotidine (PEPCID) 40 MG tablet Take 40 [...] once daily 04/04/2022 omeprazole (PRILOSEC) 40 MG capsule Take 1 capsule by mouth 2 times daily, before breakfast and supper 180 capsule 1 03/22/2020 08/29/2020 tiZANidine (ZANAFLEX) 4 MG tablet Take 1 tablet by mouth every 8 hours as needed for Muscle Spasms 30 tablet 03/22/2020 05/13/2020 documented as of this encounter Plan of Treatment Not on file documented as of this encounter Procedures Procedure Name Priority Date/Time Associated Diagnosis Comments CT ABDOMEN PELVIS W CONTRAST Routine 03/30/2020 10:19 AM CDT Abdominal pain, unspecified abdominal location CREATININE - POCT INTERFACED Routine 03/30/2020 10:00 AM CDT documented in this encounter Results * CT ABDOMEN PELVIS W CONTRAST (03/30/2020 [...] - 1.20 mg/dL 03/30/2020 10:13 AM CDT [facility] Blood BLOOD SPECIMEN / Unknown 03/30/2020 10:00 AM CDT 03/30/2020 10:13 AM CDT Rojas Zuniga MD LAB - POINT OF CARE ORDERABLES Performing Organization Address City/State/[facility] Co de Phone Number [facility] [address] [place] [address] documented in this encounter Visit Diagnoses Diagnosis Abdominal pain, unspecified abdominal location documented in this encounter Administered Medications Inactive Administered Medications - up to 3 most recent administrations Medication Order MAR Action Action Date Dose Rate Site 0.9% NaCl injection 0-10 mL 0-10 mL, Intracatheter, ONCE PRN, Other, Contrast flush, 1 dose, Starting on 03/30/20 at 0950, Until Sat03/30/20 at 0951, For administration with contrast. $ Given 03/30/2020 9:51 AM CDT 10 mL 0.9% NaCl IV Flush Bag 0-250 mL, Intracatheter, ONCE PRN, Contrast flush, 1 dose, Starting on Sat03/30/20 at 0950, Until Sat03/30/20 at 0951, For administration with contrast $ Given 03/30/2020 9:51 AM CDT 100 mL iopamidol (ISOVUE 300) 61 % contrast Oral, CONTRAST ONCE, Starting on Sat03/30/20 at 0950, Until Manasa 03/31/20 at 0126 $ Given - Contrast 03/30/2020 9:51 AM CDT 50 mL iopamidol (ISOVUE 370) 76 % contrast Intravenous, CONTRAST ONCE, Starting on Sat03/30/20 at 0950, Until Manasa 03/31/20 at 0126 $ Given - Contrast 03/30/2020 9:50 AM CDT 80 mL documented in this encounter
--- OUTSIDE RECORDS SUMMARY | 2024-06-14 16:44 | XMS_ITS | Encounter Summary ---
Author Organization [facility] Address [address] [place] [address] Care Team Providers Care Industrial Renderer Name Role Phone Unavailable Primary Care Provider Unavailabl e Reason for Visit * Reason Comments MIGRAINE Encounter Details Date Type Department Care Team (Late st Contact Info) Description 06/09/2012 12:00 PM INSPECTOR TOOL Office Visit [facility] Neurosciences [address] [place], [place] [id number] [place] [address] [facility] [address] [place] [address] Migraine (Primary Dx) Social History [...] Sign Reading Time Taken Comments Blood Pressure 123/82 06/09/2012 12:22 PM INSPECTOR TOOL Pulse 97 06/09/2012 12:22 PM INSPECTOR TOOL Temperature - - Respiratory Rate - - Oxygen Saturation - - Inhaled Oxygen Concentration - - Weight 107.5 kg (237 lb) 06/09/2012 12:22 PM INSPECTOR TOOL Height 185.4 cm (6' 1 ) 06/09/2012 12:22 PM INSPECTOR TOOL Body Mass Index 31.27 06/09/2012 12:22 PM INSPECTOR TOOL documented in this encounter Patient Instructions * Patient Instructions* Danny Eloina Viky - 06/09/2012 12:35 PM INSPECTOR TOOL Call physician if symptoms worsen or with any questions. Take Medications as prescribed. For descriptions of a variety of neurological conditions please visit: [email or web address] ECTOR TOOL documented in this encounter Progress Notes * Lui Ledesma MD - 06/09/2012 12:32 PM CST Office Visit Samuel Sanchez is a 66 y.o. male who presents for his headaches. We took him off TPM due to renal stone concerns. He actually then had a stone while off it and the FREDERICK were worse. He therefore restarted the TPM and is having excellent results with only taking it QOD. TPM 25mg QOD No past medical history on file. Review of Systems - General ROS: negative General Exam: VS: BP 123/82 Pulse 97 Wt 107.502 kg (237 lb) BMI 31.27 kg/m2 General: Well-developed, well-nourished Neurological Exam: Mental [...] is intact to confrontation. Motor: Strength is grade 5/5 throughout. Bulk and tone are normal. No tremor or abnormal movement seen. Coordination: Normal without evidence of dysmetria. Gait and Station: Normal for age. Impression: Stable migraines. He has no neurological or visual deficits during the events. We will continue thesame medications below. At a QOD dose the risk of renal stones with TPM should be extremely low. Plan: Continue Topamax 25mg QHS Imitrex 100mg PRN, may take with NSAIDs RTO 1 year ECTOR TOOL documented in this encounter Plan of Treatment Not on file documented as of this encounter Visit Diagnoses Diagnosis Migraine- Primary Migraine, unspecified, without mention of intractable migraine without mention of status migrainosus documented in this encounter
--- OUTSIDE RECORDS SUMMARY | 2024-06-14 16:44 | XMS_ITS | Encounter Summary ---
Author Organization [facility] Address [address] [facility] [place] [address] Care Team Providers Care Software Quality Analyst Name Role Phone Unavailable Primary Care Provider Unavailabl e Reason for Visit * Reason Onset Date Comments MEDICATION REFILL 10/30/2011 Encounter Details Date Type Department Care Team (Late st Contact Info) Description 10/30/2011 Refill [facility] Neurosciences [address] [place], [place] [id number] [place] [address] [address] [facility] [address] [place] [address] MEDICATION REFILL Social History Tobacco Use Types Packs/Day Years Used Date Smoking Tobacco: Never Assessed Sex and Gender Information Value Date Recorded Sex Assigned at Male 08/22/2021 3:52 PM CDT Gender Identity Male 08/22/2021 3:52 PM CDT Sexual Orientation Not on file documented as of this encounter Miscellaneous Notes * Telephone Encounter - Nallely Navas - 10/30/2011 9:52 AM CDT Escribed 90 day to pharmacy. documented in this encounter Plan of Treatment Not on file documented as of this encounter Visit Diagnoses Not on filedocumented in this encounter
--- OUTSIDE RECORDS SUMMARY | 2024-06-14 16:44 | XMS_ITS | Encounter Summary ---
Author Organization [employer] Care Team Providers Care Adjunct Faculty Mathematics Department Name Role Phone Grey Tomas MD Primary Care Provider [phone] Encounter Details Date Type Department Care Team (Latest Contact Info) Description 10/25/2023 Travel Social History Tobacco Use Types Packs/Day Years Used Date Smoking Tobacco: Former Cigarettes 2 30 1 966 - 1995 Smokeless Tobacco: Never Alcohol Use Standard Drinks/Week Comments Yes 0 (1 standard drink = 0.6 oz pur e alcohol) occasionally Sex and Gender Information Value Date Recorded Sex Assigned at Not on file Legal Sex Male 7:42 PM CDT Gender Identity Not on file Sexual Orientation Not on file documented as of this encounter Plan of Treatment Not on file documented as of this encounter Visit Diagnoses Not on filedocumented in this encounter Additional Health Concerns Infection Onset Date Last Indicated Resolved Time COVID - 19 10/25/2023 10/25/2023 10/25/2023 2:20 PM CDT documented as of this encounter Care Teams Adjunct Faculty Mathematics Department Relationship Specialty Start Date End Date Grey Tomas MD [address] [place] [address] PCP - General Family Medicine 10/25/23 documented as of this encounter
--- OUTSIDE RECORDS SUMMARY | 2024-06-14 16:44 | XMS_ITS | Encounter Summary ---
Author Organization [facility] Address [address] [facility] 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 No / Unsure 11/29/2020 5:48 PM CDT documented as of this encounter Last Filed Vital Signs Vital Sign Reading Time Taken Comments Blood Pressure 115/72 11/29/2020 8:48 PM CDT Pulse 62 11/29/2020 8:48 PM CDT Temperature 36.6 ??C (97.8 ??F) 11/29/2020 5:49 PM CD T Respiratory Rate 18 11/29/2020 8:48 PM CDT Oxygen Saturation 99% 11/29/2020 8:48 PM CDT Inhaled Oxygen Concentration - - Weight 95.3 kg (210 lb) 11/29/2020 5:49 PM CDT Height 182.9 cm (6') 11/29/2020 5:49 PM CDT Body Mass Index 28.48 11/29/2020 5:49 PM CDT documented in this encounter Discharge Instructions * Discharge Instructions* Juan R Courtney MD - 11/29/2020 8:47 PM CDT Continue your Flomax. Take your pain medication as needed. Take the are access directed. Increase oral fluids. documented in this encounter Medications at Time of Discharge Biotin 5 MG TABLET DISPERSIBLE Take 5,000 mcg by mouth daily. esomeprazole (NexIUM) 20 MG CAPSULE DELAYED RELEASE Take 20 mg by mouth daily. HYDROcodone-aceta minophen (NORCO) 5-325 MG Tablet Take 1-2 Tabs by mouth every 4 hours as needed for Moderate or more severe pain. 15 Tab 02/06/2020 methotrexate 2.5 MG Tablet Take 6 Tabs by mouth once a week 02/02/2020 Multiple Vitamin (multi-vitamins) Tablet Take 1 Tab by mouth daily. Multiple Vitamins-Minerals (ICAPS AREDS 2 PO) Take 2 Tabs by mouth 2 times daily. ondansetron (ZOFRAN-ODT) 4 MG TABLET DISPERSIBLE Take 1 Tab by mouth every 12 hours as needed for Nausea - 1st line. 10 Tab 02/06/2020 oxybutynin (DITROPAN) 5 MG Tablet Take 1 Tab by mouth 2 times daily. 30 Tab 02/06/2020 tamsulosin (FLOMAX) 0.4 MG Capsule Take 0.4 mg by mouth daily. 12/16/2019 cefUROXime (CEFTIN) 250 MG Tablet Take 1 Tablet by mouth 2 times daily for 14 days. 28 Tablet 11/29/2020 1 documented as of this encounter ED Notes * Caron Yuen RN - 11/29/2020 8:50 PM CDT Patient discharged. Discharge instructions and patient educational material reviewed with patient; questions and concerns addressed; patient verbalizes understanding, using teach back. Patient was given no new prescriptions. Patient discharged per ambulatory mode as responsible democrat. SL D/C'ed with Simon cath intact. * Caron Yuen RN - 11/29/2020 8:44 PM CDT Report received from Ezequiel RASHID. Pt resting in chair. IVF infusing without difficulty. No signs of distress noted. * Juan R Courtney MD - 11/29/2020 7:36 PM CDT Chief Complaint Patient presents with ??? Abdominal Pain HPI 75-year-old male complains of right lower quadrant abdominal pelvic discomfort. Symptoms have been going on and off for the past few weeks. Denies nausea, vomiting, fever, chills. Patient has no dysuria or urethral discharge. There are no lesions to his male organs. Patient has no back pain or rash. Patient does have previous history of renal stones. Currently treated for cancer of the larynx. No current facility-administered medications for this encounter. Current Outpatient Medications Medication Sig Dispense Refill ??? Biotin 5 MG TABLET DISPERSIBLE Take 5,000 mcg by mouth daily. ??? esomeprazole (NexIUM) 20 MG CAPSULE DELAYED RELEASE Take 20 mg by mouth daily. ??? HYDROcodone-acetaminophen (NORCO) 5-325 MG Tablet Take 1-2 Tabs by mouth every 4 hours as needed for Moderate or more severe pain. 15 Tab 0 ??? methotrexate 2.5 MG Tablet Take 6 Tabs by mouth once a week ??? Multiple Vitamin (multi-vitamins) Tablet Take 1 Tab by mouth daily. ??? Multiple Vitamins-Minerals (ICAPS AREDS 2 PO) Take 2 Tabs by mouth 2 times daily. ??? ondansetron (ZOFRAN-ODT) 4 MG TABLET DISPERSIBLE Take 1 Tab by mouth every 12 hours as needed for Nausea - 1st line. 10 Tab 0 ??? oxybutynin (DITROPAN) 5 MG Tablet Take 1 Tab by mouth 2 times daily. 30 Tab 0 ??? tamsulosin (FLOMAX) 0.4 MG Capsule Take 0.4 mg by mouth daily. No Known Allergies Past Medical History Positives Diagnosis Date ??? GERD (gastroesophageal reflux disease) ??? Migraine ??? Squamous cell carcinoma of larynx (HCC) Past Surgical History: Procedure Laterality Date ??? BICEPS TENODESIS Left 1969 ??? BLADDER SURGERY Right 02/06/2020 Procedure: CYSTOSCOPY HOLMIUM LASER, RIGHT STENT INSERTION, BASKET STONE EXTRACTION, RIGHT URETEROSCOPY; Surgeon: Elizabeth Alba MD; Location: [facility]; Service: Urology ??? LARYNGOSCOPY 02/2019 ??? PROSTATE SURGERY 1970 ??? ROTATOR CUFF REPAIR Right 1970 ??? TESTICLE REMOVAL 1969 ??? VASECTOMY 1970 Social History Socioeconomic History ??? Marital status: Spouse name: Not on file ??? Number of children: Not on file ??? Years of education: Not on file ??? Highest education level: Not on file Occupational History ??? Not on file Tobacco Use ??? Smoking status: Former Smoker Packs/day: 2.00 Years: 30.00 Pack years: 60.00 Types: Cigarettes Quit date: 1995 Years since quittin.5 ??? Smokeless tobacco: Never Used Substance and Sexual Activity ??? Alcohol use: Yes Comment: occasionally ??? Drug use: Yes Types: Marijuana ??? Sexual activity: Not on file Other Topics Concern ??? Not on file Social History Narrative ??? Not on file Social Determinants of Health Social determinant risk not applicable to this patient. BP 114/79 Pulse 64 Temp 97.8 ??F (36.6 ??C) (Tympanic) Resp 18 Ht 6' (1.829 m) Wt 210 lb (95.3 kg) SpO2 98% BMI 28.48 kg/m?? Review of Systems Constitutional: Negative for activity change, appetite change, chills, fever and unexpected weight change. HENT: Negative for congestion, dental problem, ear pain, hearing loss, nosebleeds, rhinorrhea, sinus pressure, sore throat, tinnitus, trouble swallowing and voice change. Eyes: Negative for photophobia, pain, discharge and visual disturbance. Respiratory: Negative for cough, choking, shortness of breath and wheezing. Cardiovascular: Negative for chest pain, palpitations and leg swelling. Gastrointestinal: Negative for abdominal pain, blood in stool, constipation, diarrhea, nausea and vomiting. Endocrine: Negative for cold intolerance, polydipsia, polyphagia and polyuria. Genitourinary: Negative for dysuria, frequency and urgency. Musculoskeletal: Negative for arthralgias, gait problem, joint swelling, myalgias and neck pain. Skin: Negative for pallor, rash and wound. Allergic/Immunologic: Negative for environmental allergies and immunocompromised state. Neurological: Negative for dizziness, tremors, seizures, syncope, numbness and headaches. Hematological: Negative for adenopathy. Does not bruise/bleed easily. Psychiatric/Behavioral: Negative for agitation, behavioral problems, confusion, hallucinations and self-injury. The patient is not nervous/anxious. All other systems reviewed and are negative. Physical Exam Vitals and nursing note reviewed. Constitutional: General: He is not in acute distress. Appearance: He is well-developed. He is not diaphoretic. HENT: Head: Normocephalic. Right Ear: External ear normal. Left Ear: External ear normal. Eyes: General: No scleral icterus. Right eye: No discharge. Pupils: Pupils are equal, round, and reactive to light. Neck: Thyroid: No thyromegaly. Vascular: No JVD. Trachea: No tracheal deviation. Cardiovascular: Rate and Rhythm: Normal rate and regular rhythm. Heart sounds: Normal heart sounds. No murmur heard. Pulmonary: Effort: Pulmonary effort is normal. No respiratory distress. Breath sounds: Normal breath sounds. Chest: Chest wall: No tenderness. Abdominal: General: Bowel sounds are normal. Palpations: Abdomen is soft. There is no mass. Tenderness: There is abdominal tenderness in the right lower quadrant. There is no guarding. Negative signs include Collins's sign, McBurney's sign, psoas sign and obturator sign. Musculoskeletal: General: No tenderness or deformity. Normal range of motion. Cervical back: Normal range of motion and neck supple. Skin: General: Skin is warm and dry. Findings: No rash. Neurological: Mental Status: He is alert and oriented to person, place, and time. Cranial Nerves: No cranial nerve deficit. Motor: No abnormal muscle tone. Coordination: Coordination normal. Deep Tendon Reflexes: Reflexes normal. Psychiatric: Judgment: Judgment normal. Labs Reviewed CMP (COMPREHENSIVE METABOLIC PANEL) - Abnormal; Notable for the following components: Result Value BUN/CREATININE RATIO 22 (*) All other components within normal limits URINALYSIS REFLEX IF INDICATED BY ABNORMAL RESULTS - Abnormal; Notable for the following components: WBC ESTERASE 25 /uL (*) WBC (Urine) 6-10 (*) BACTERIA, URINE Few (*) All other components within normal limits CBC WITH AUTO DIFFERENTIAL - Abnormal; Notable for the following components: PLATELET COUNT 137 (*) All other components within normal limits LIPASE - Normal LACTIC ACID (LACTATE) - Normal POCT CREATININE - Normal CULTURE, URINE COMPLETE BLOOD COUNT (CBC) WITH DIFF Narrative: The following orders were created for panel order CBC with Diff [id number]. Procedure Abnormality Status --------- ------ CBC with Auto Differential[[id number]] Abnormal Final result Please view results for these tests on the individual orders. EXTRA TUBES Narrative: The following orders were created for panel order Extra Tubes. Procedure Abnormality Status --------- ------ Gold Top Tube[[id number]] Final result Lavender Top Tube[[id number]] Final result Please view results for these tests on the individual orders. GOLD TOP TUBE LAVENDER TOP TUBE URINALYSIS REFLEX IF INDICATED BY ABNORMAL RESULTS Final Result CT ABDOMEN PELVIS W/ CONTRAST Final Result IMPRESSION: 1. Mild left hydronephrosis and hydroureter due to an obstructing 0.6 cm distal left ureteral calculus. 2. Additional bilateral renal calculi. 3. Nonspecific wall thickening of the stomach may be related to nondistention, correlate for clinical symptoms, if there is symptoms could be correlated with a routine endoscopy. 4. Unchanged low-attenuation hepatic and similar renal lesions may be cysts. CBC with Diff [id number] Final Result CMP (Comprehensive Metabolic Panel) Final Result Lipase [id number] Final Result Lactic Acid (Lactate) Final Result Extra Tubes Final Result Procedures Imaging Results CT ABDOMEN PELVIS W/ CONTRAST (Final result) Result time 11/29/20 19:58:54 Final result by See Snider Jr., MD (11/29/20 19:58:54) Impression: IMPRESSION: 1. Mild left hydronephrosis and hydroureter due to an obstructing 0.6 cm distal left ureteral calculus. 2. Additional bilateral renal calculi. 3. Nonspecific wall thickening of the stomach may be related to nondistention, correlate for clinical symptoms, if there is symptoms could be correlated with a routine endoscopy. 4. Unchanged low-attenuation hepatic and similar renal lesions may be cysts. Narrative: EXAM DESCRIPTION: CT ABDOMEN PELVIS W/ CONTRAST REASON FOR STUDY: RLQ abdominal pain, appendicitis suspected (Age > 14y), symptoms for 2-3 weeks. Additional history of squamous cell carcinoma of the larynx, previous prostate surgery and orchiectomy. TECHNIQUE: CT scan of the abdomen and pelvis performed with intravenous and without oral contrast using helical scanning technique with dynamic intravenous contrast injection. Reconstructed coronal and sagittal MPR images reviewed. All images stored on PACS. Automated exposure control was used as a dose optimization technique for this examination. CONTRAST TYPE/DOSE: 100 mL Isovue 370 intravenous contrast via the left antecubital vein. COMPARISON: 02/05/2020. FINDINGS: LOWER CHEST: Lung bases are predominantly clear. There is no pleural effusion. Small area of subpleural nodularity left lower lobe laterally is unchanged. LIVER: Few low-attenuation hepatic lesions are noted too small for characterization but unchanged and may be cysts. Normal enhancement of the portal vein. The liver size and contour appear normal. GALLBLADDER: Gallbladder is unremarkable. No gallstones or inflammatory change. BILE DUCTS: No biliary ductal dilation. SPLEEN: Spleen size is normal. No focal lesion. PANCREAS: No pancreatic mass or inflammatory change. ADRENALS: Normal. KIDNEYS/URINARY TRACT: Nonobstructing bilateral renal calculi, left greater than right with the largest in the right kidney 0.5 cm and several calculi in the left kidney measuring up to 0.4 cm. There is mild left hydronephrosis and mild left hydroureter due to an obstructing 0.6 cm distal left ureteral calculus. No right hydronephrosis although there is minimal fullness along the right ureter. No ureteral calculi on the right. Minimal fluid in the urinary bladder with some wall thickening of the bladder. The morphology is similar to the prior study. Probable bilateral renal cysts. GI: No evidence of bowel obstruction. The appendix is normal. The terminal ileum is normal. Small hiatal hernia. There is prominence of the wall the stomach measuring 2.4 cm. No pneumatosis is seen. No bowel wall thickening is otherwise seen. PERITONEUM: No ascites or free air is seen. No mesenteric mass or lymphadenopathy. There is a small fat containing umbilical hernia. RETROPERITONEUM: No retroperitoneal mass or lymphadenopathy. REPRODUCTIVE: No significant abnormalities are seen. Prostate size is top-normal. VASCULATURE: Abdominal aorta is nonaneurysmal. There is some calcified noncalcified plaque of the bilateral external iliac arteries. There is low attenuation of the bilateral common iliac arteries likely not opacified with some apparent mixing artifact in the left renal vein and in the IVC. MUSCULOSKELETAL: Bone windows demonstrate no acute or aggressive osseous abnormality. OTHER: No other abnormality. THIS IS AN ELECTRONICALLY VERIFIED FINAL REPORT 11/29/2020 7:55 PM - Electronically signed by See Snider M.D. CH: Report ID: [id number] Reading Location: [address] Number of Diagnoses or Management Options Diagnosis management comments: DDX: Acute abdomen. Renal stone. Urinary tract infection. Amount and/or Complexity of Data Reviewed Clinical lab tests: ordered Tests in the medicine section of CPT??: ordered Decide to obtain previous medical records or to obtain history from someone other than the patient:yes Risk of Complications, Morbidity, and/or Mortality Presenting problems: moderate Diagnostic procedures: low Management options: low Coding IMPRESSION: Abdominal pain . UTI. Ureteral Stone Strain Urine. F/U Urologist. RX: Flomax, cipro, tramadol. * Ezequiel Lemus RN - 11/29/2020 7:09 PM CDT PT to CT * Denise Valdez RN - 11/29/2020 5:47 PM CDT Patient to triage with c/o RLQ pain starting a few weeks ago. Denies known injury, reports normalBM this morning. VSS in triage. documented in this encounter Plan of Treatment Not on file documented as of this encounter Procedures Procedure Name Priority Date/Time Associated Diagnosis Comments URINALYSIS REFLEX IF INDICATED BY ABNORMAL RESULTS STAT 11/29/2020 7:30 PM CDT CULTURE, URINE STAT 11/29/2020 7:[address] ABDOMEN PELVIS W/ CONTRAST STAT 11/29/2020 7:15 PM CDT POCT CREATININE STAT 11/29/2020 6:56 PM CDT EXTRA TUBES STAT 11/29/2020 6:35 PM CDT GOLD TOP TUBE STAT 11/29/2020 6:35 PM CDT LAVENDER TOP TUBE STAT 11/29/2020 6:3 5 PM CDT CBC WITH AUTO DIFFERENTIAL STAT 11/29/2020 6:35 PM CDT LIPASE STAT 11/29/2020 6:35 PM CDT LACTIC ACID (LACTATE) STAT 11/29/2020 6:35 PM CDT CMP (COMPREHENSIVE METABOLIC PANEL) STAT 11/29/2020 6:35 PM CDT COMPLETE BLOOD COUNT (CBC) WITH DIFF STAT 11/29/2020 6:35 PM CDT documented in this encounter Results * Culture, Urine (11/29/2020 7:30 PM CDT) CULTURE RESULTS ENTEROCOCCUS FAECALIS 12/02/2020 9:05 AM CDT [facility] Urine URINE SPECIMEN COLLECTION, CLEAN CATCH / Unknown Non-Phlebotomy Collection / Unknown 11/29/2020 7:30 PM CDT 11/29/2020 7:42 PM CDT Narrative [facility] - 12/02/2020 9:05 AM CDT Susceptibility not performed on enterococcus species. ??Due to high achievable concentrations in urine, Ampicillin is the drug of choice for treating infections limited to the lower urinary tract (regardless of Vancomycin susceptibility). ??For allergic patients, Nitrofurantoin or a quinolone may be substituted. ??For epidemiological purposes only, a Vancomycin screen will be performed and reported if positive. us Juan R Courtney MD MICROBIOLOGY - GENERAL ORD ERABLES Final Result [facility] [address] [place] [address], * (ABNORMAL) URINALYSIS REFLEX IF INDICATED BY ABNORMAL RESULTS (11/29/2020 7:30 PM CDT) SPECIFIC GRAVITY 1.020 1.003 - 1.030 11/29/2020 7:[address] [facility] URINE PH 5.0 5.0 - 9.0 11/29/2020 7:[address] [facility] WBC ESTERASE 25 /uL(A) Negative 11/29/2020 7:[address] [facility] NITRITE Negative Negative 11/29/2020 7:[address] [facility] PROTEIN, RANDOM URINE Negative Negative 11/29/2020 7:[address] [facility] URINE GLUCOSE, QUAL Negative Negative 11/29/2020 7:[address] [facility] URINE KETONES Negative Negative 11/29/2020 7:[address] [facility] UROBILINOGEN Normal Normal mg/dL 11/29/2020 7:[address] [facility] URINE BILIRUBIN Negative Negative 7:[address] [facility] URINE BLOOD Negative Negative vinod/ul 11/29/2020 7:[address] [facility] URINALYSIS COLOR Yellow 11/29/2020 7:57 PM CDT [facility] URINALYSIS CLARITY Slightly Cloudy 11/29/2020 7:[address] [facility] WBC (Urine) 6-10(A) Negative, 0-5 /hpf 11/29/2020 7:57 PM CDT [facility] URINE RBC'S Negative Negative, 0-2 /hpf 11/29/2020 7:[address] [facility] EPITHELIAL CELLS Occasional /lpf 11/29/2020 7:57 PM CDT [facility] BACTERIA, URINE Few(A) Negative /hpf 11/29/2020 7:[address] [facility] Urine URINE SPECIMEN COLLECTION, CLEAN CATCH / Unknown Non-Phlebotomy Collection / Unknown 11/29/2020 7:30 PM CDT 11/29/2020 7:42 PM CDT us Juan R Courtney MD URINE ORDERABLES Final Res ult [facility] [address] [place] [address] * CT ABDOMEN PELVIS W/ CONTRAST (11/29/2020 7:15 PM CDT) Anatomical Region Laterality Modality Abdomen N/A Computed Tomogra phy 11/29/2020 7:55 PM CDT Impressions 11/29/2020 7:58 PM CDT IMPRESSION: ?? 1. ??Mild left hydronephrosis and hydroureter due to an obstructing 0.6 cm distal left ureteral calculus. 2. ??Additional bilateral renal calculi. 3. ??Nonspecific wall thickening of the stomach may be related to nondistention, correlate for clinical symptoms, if there is symptoms could be correlated with a routine endoscopy. 4. ??Unchanged low-attenuation hepatic and similar renal lesions may be cysts. Narrative 11/29/2020 7:58 PM CDT EXAM DESCRIPTION: ?? CT ABDOMEN PELVIS W/ CONTRAST REASON FOR STUDY: ?? RLQ abdominal pain, appendicitis suspected (Age > 14y), symptoms for 2-3 weeks. ??Additional history of squamous cell carcinoma of the larynx, previous prostate surgery and orchiectomy. TECHNIQUE: ??CT scan of the abdomen and pelvis performed with intravenous and ??without oral contrast using helical scanning technique with dynamic intravenous contrast injection. Reconstructed coronal and sagittal MPR images reviewed. All images stored on PACS. Automated exposure control was used as a dose optimization technique for this examination. CONTRAST TYPE/DOSE: ??100 mL Isovue 370 intravenous contrast via the left antecubital vein. COMPARISON: ??02/05/2020. FINDINGS: ??LOWER CHEST: ??Lung bases are predominantly clear. ??There is no pleural effusion. ??Small area of subpleural nodularity left lower lobe laterally is unchanged. LIVER: ??Few low-attenuation hepatic lesions are noted too small for characterization but unchanged and may be cysts. ??Normal enhancement of the portal vein. ??The liver size and contour appear normal. GALLBLADDER: ??Gallbladder is unremarkable. ??No gallstones or inflammatory change. BILE DUCTS: ??No biliary ductal dilation. SPLEEN: ??Spleen size is normal. ??No focal lesion. PANCREAS: ??No pancreatic mass or inflammatory change. ADRENALS: ??Normal. KIDNEYS/URINARY TRACT: ??Nonobstructing bilateral renal calculi, left greater than right with the largest in the right kidney 0.5 cm and several calculi in the left kidney measuring up to 0.4 cm. ??There is mild left hydronephrosis and mild left hydroureter due to an obstructing 0.6 cm distal left ureteral calculus. ??No right hydronephrosis although there is minimal fullness along the right ureter. ??No ureteral calculi on the right. ??Minimal fluid in the urinary bladder with some wall thickening of the bladder. ??The morphology is similar to the prior study. ??Probable bilateral renal cysts. GI: ??No evidence of bowel obstruction. ??The appendix is normal. ??The terminal ileum is normal. ??Small hiatal hernia. ??There is prominence of the wall the stomach measuring 2.4 cm. ??No pneumatosis is seen. ?? No bowel wall thickening is otherwise seen. PERITONEUM: ??No ascites or free air is seen. ??No mesenteric mass or lymphadenopathy. ??There is a small fat containing umbilical hernia. RETROPERITONEUM: ??No retroperitoneal mass or lymphadenopathy. REPRODUCTIVE: ??No significant abnormalities are seen. ??Prostate size is top-normal. VASCULATURE: ??Abdominal aorta is nonaneurysmal. ??There is some calcified noncalcified plaque of the bilateral external iliac arteries. ??There is low attenuation of the bilateral common iliac arteries likely not opacified with some apparent mixing artifact in the left renal vein and in the IVC. MUSCULOSKELETAL: ??Bone windows demonstrate no acute or aggressive osseous abnormality. OTHER: ??No other abnormality. THIS IS AN ELECTRONICALLY VERIFIED FINAL REPORT 11/29/2020 7:55 PM - Electronically signed by See Snider M.D. CH: D: ??11/29/2020 7:55 PM T: ??11/29/2020 7:55 PM Report ID: [id number] Reading Location: ??[id number] Procedure Note See Snider Jr., MD - 11/29/2020 EXAM DESCRIPTION: CT ABDOMEN PELVIS W/ CONTRAST REASON FOR STUDY: RLQ abdominal pain, appendicitis suspected (Age > 14y), symptoms for 2-3 weeks. Additional history of squamous cell carcinoma of the larynx, previous prostate surgery and orchiectomy. TECHNIQUE: CT scan of the abdomen and pelvis performed with intravenous and without oral contrast using helical scanning technique with dynamic intravenous contrast injection. Reconstructed coronal and sagittal MPR images reviewed. All images stored on PACS. Automated exposure control was used as a dose optimization technique for this examination. CONTRAST TYPE/DOSE: 100 mL Isovue 370 intravenous contrast via the left antecubital vein. COMPARISON: 02/05/2020. FINDINGS: LOWER CHEST: Lung bases are predominantly clear. There is no pleural effusion. Small area of subpleural nodularity left lower lobe laterally is unchanged. LIVER: Few low-attenuation hepatic lesions are noted too small for characterization but unchanged and may be cysts. Normal enhancement of the portal vein. The liver size and contour appear normal. GALLBLADDER: Gallbladder is unremarkable. No gallstones or inflammatory change. BILE DUCTS: No biliary ductal dilation. SPLEEN: Spleen size is normal. No focal lesion. PANCREAS: No pancreatic mass or inflammatory change. ADRENALS: Normal. KIDNEYS/URINARY TRACT: Nonobstructing bilateral renal calculi, left greater than right with the largest in the right kidney 0.5 cm and several calculi in the left kidney measuring up to 0.4 cm. There is mild left hydronephrosis and mild left hydroureter due to an obstructing 0.6 cm distal left ureteral calculus. No right hydronephrosis although there is minimal fullness along the right ureter. No ureteral calculi on the right. Minimal fluid in the urinary bladder with some wall thickening of the bladder. The morphology is similar to the prior study. Probable bilateral renal cysts. GI: No evidence of bowel obstruction. The appendix is normal. The terminal ileum is normal. Small hiatal hernia. There is prominence of the wall the stomach measuring 2.4 cm. No pneumatosis is seen. No bowel wall thickening is otherwise seen. PERITONEUM: No ascites or free air is seen. No mesenteric mass or lymphadenopathy. There is a small fat containing umbilical hernia. RETROPERITONEUM: No retroperitoneal mass or lymphadenopathy. REPRODUCTIVE: No significant abnormalities are seen. Prostate size is top-normal. VASCULATURE: Abdominal aorta is nonaneurysmal. There is some calcified noncalcified plaque of the bilateral external iliac arteries. There is low attenuation of the bilateral common iliac arteries likely not opacified with some apparent mixing artifact in the left renal vein and in the IVC. MUSCULOSKELETAL: Bone windows demonstrate no acute or aggressive osseous abnormality. OTHER: No other abnormality. THIS IS AN ELECTRONICALLY VERIFIED FINAL REPORT 11/29/2020 7:55 PM - Electronically signed by See Snider M.D. CH: GAMAL Report ID: [id number] Reading Location: [id number] IMPRESSION: 1. Mild left hydronephrosis and hydroureter due to an obstructing 0.6 cm distal left ureteral calculus. 2. Additional bilateral renal calculi. 3. Nonspecific wall thickening of the stomach may be related to nondistention, correlate for clinical symptoms, if there is symptoms could be correlated with a routine endoscopy. 4. Unchanged low-attenuation hepatic and similar renal lesions may be cysts. us Juan R Courtney MD IMG CT ORDERABLES Final Re sult * POCT Creatinine (11/29/2020 6:56 PM CDT) CREATININE - POCT 1.1 0.6 - 1.3 mg/dL 11/29/2020 6:[address] [facility] Blood 11/29/2020 6:56 PM CDT 11/29/2020 6:57 PM CDT None Provider POINT OF CARE TESTING Final Resu lt Performing Organization Address [facility] Co de Phone Number [facility] [place] [address] * Lavender Top Tube (11/29/2020 6:35 PM CDT) Blood No Phlebotomy Charged / Unknown 11/29/2020 6:35 PM CDT 11/29/2020 6:57 PM CDT Juan R Courtney MD HEMATOLOGY ORDERABLES Mariaa l Result Performing Organization Address [facility] Co de Phone Number [facility] [place] [address] * Gold Top Tube (11/29/2020 6:35 PM CDT) Blood No Phlebotomy Charged / Unknown 11/29/2020 6:35 PM CDT 11/29/2020 6:57 PM CDT us Juan R Courtney MD CHEMISTRY ORDERABLES Final Result Performing Organization Address [facility] Co de Phone Number [facility] [place] [address] * (ABNORMAL) CBC with Auto Differential (11/29/2020 6:35 PM CDT) [facility] WBC 5.94 4.00 - 12.00 10(3)/mcL 11/29/2020 7:[address] [facility] RBC 4.52 4.40 - 5.80 10(6)/mcL 11/29/2020 7:[address] [facility] HEMOGLOBIN (HGB) 14.4 13.0 - 16.5 g/dL 11/29/2020 7:[address] [facility] HEMATOCRIT (HCT) 42.5 38.0 - 50.0 % 11/29/2020 7:[address] [facility] MCV 94.0 82.0 - 96.0 fL 11/29/2020 7:[address] [facility] MCH 31.9 26.0 - 32.0 pg 11/29/2020 7:[address] [facility] MCHC 33.9 31.0 - 36.0 g/dL 11/29/2020 7:[address] [facility] PLATELET COUNT 137(L) 140 - 440 10(3)/mcL 11/29/2020 7:[address] [facility] RDW 13.0 11.8 - 15.5 % 11/29/2020 7:[address] [facility] MPV 11.0 8.0 - 12.6 fL 11/29/2020 7:23 PM CDT [facility] NEUTROPHILS 64.0 40.0 - 68.0 % 11/29/2020 7:[address] [facility] LYMPHOCYTES 21.2 19.0 - 49.0 % 11/29/2020 7:[address] [facility] MONOCYTES 7.9 3.0 - 13.0 % 11/29/2020 7:[address] [facility] EOSINOPHILS 6.2 0.0 - 8.0 % 11/29/2020 7:[address] [facility] BASOPHILS 0.7 0.0 - 1.0 % 11/29/2020 7:[address] [facility] ABSOLUTE NEUTROPHILS 3.80 1.40 - 5.30 10(3)/mcL 11/29/2020 7:[address] [facility] ABSOLUTE LYMPHOCYTES 1.26 0.90 - 3.30 10(3)/mcL 11/29/2020 7:[address] [facility] ABSOLUTE MONOCYTES 0.47 0.10 - 0.90 10(3)/mcL 11/29/2020 7:[address] [facility] ABSOLUTE EOSINOPHIL 0.37 0.00 - 0.50 10(3)/mcL 11/29/2020 7:[address] [facility] ABSOLUTE BASOPHILS 0.04 0.00 - 0.10 10(3)/mcL 11/29/2020 7:[address] [facility] NRBC PER 100 WBC 0 11/30/19 7:[address] [facility] RESULTS ARE CONSISTENT WITH PERIPHERAL SMEAR REVIEW Yes 11/29/2020 7:[address] [facility] Blood Venipuncture / Unknown 11/29/2020 6:35 PM CDT 11/29/2020 6:56 PM CDT Juan R Courtney MD HEMATOLOGY ORDERABLES Mariaa l Result [facility] [place] [address] * Lactic Acid (Lactate) (11/29/2020 6:35 PM CDT) LACTIC ACID 1.4 0.5 - 2.0 mmol/L 11/29/2020 7:[address] [facility] Blood Venipuncture / Unknown 11/29/2020 6:35 PM CDT 11/29/2020 6:56 PM CDT Juan R Courtney MD CHEMISTRY ORDERABLES Final Result [facility] [place] [address] * Lipase [id number] (11/29/2020 6:35 PM CDT) LIPASE 46.1 13 - 60 U/L 11/29/2020 7:[address] [facility] Blood Venipuncture / Unknown 11/29/2020 6:35 PM CDT 11/29/2020 6:56 PM CDT us Juan R Courtney MD CHEMISTRY ORDERABLES Final Result [facility] [place] [address] * (ABNORMAL) CMP (Comprehensive Metabolic Panel) (11/29/2020 6:35 PM CDT) SODIUM 139 136 - 144 mmol/L 11/29/2020 7:21 PM CDT [facility] POTASSIUM 3.7 3.5 - 5.1 mmol/L 11/29/2020 7:21 PM CDT [facility] CHLORIDE 104 100 - 110 mmol/L 11/29/2020 7:21 PM CDT [facility] CO2, VENOUS 27 22 - 32 mmol/L 11/29/2020 7:21 PM CDT [facility] ANION GAP 11.7 8.0 - 20.0 mmol/L 11/29/2020 7:21 PM CDT [facility] GLUCOSE 89 70 - 99 mg/dL 11/29/2020 7:21 PM CDT [facility] BUN 20 8 - 23 mg/dL 11/29/2020 7:21 PM CDT [facility] CREATININE, BLOOD 0.91 0.80 - 1.30 mg/dL 11/29/2020 7:21 PM CDT [facility] BUN/CREATININE RATIO 22(H) 12 - 20 ratio 11/29/2020 7:21 PM CDT [facility] TOTAL PROTEIN 6.4 6.0 - 8.3 g/dL 11/29/2020 7:[address] [facility] ALBUMIN 4.0 3.5 - 5.2 g/dL 11/29/2020 7:21 PM CDT [facility] Comment: The colormetric methods used for the determination of Albumin may lead to falsely elevated test results in patients suffering from renal failure or insufficiency due to interference with other proteins. A/G RATIO 1.7 1.0 - 2.0 11/29/2020 7:[address] [facility] CALCIUM 9.0 8.9 - 10.3 mg/dL 11/29/2020 7:[address] [facility] T BILI 0.3 <=1.2 mg/dL 11/29/2020 7:[address] [facility] SGOT (AST) 14 <=40 U/L 11/29/2020 7:21 PM CDT [facility] SGPT (ALT) 15 <=41 U/L 11/29/2020 7:21 PM CDT [facility] ALKALINE PHOSPHATASE 65 40 - 130 U/L 11/29/2020 7:21 PM CDT [facility] GFR, EST. NONAFRICAN >60 >=60 11/29/2020 7:21 PM CDT [facility] GFR, EST. >60 >=60 021 7:21 PM CDT [facility] Comment: Creatinine Clearance is the preferred criteria for selecting drug dose adjustments in renally impaired patients. ??The GFR is provided as additional pertinent clinical information. GFR is reported in mL/min/1.73 sq m. Blood Venipuncture / Unknown 11/29/2020 6:35 PM CDT 11/29/2020 6:56 PM CDT us Juan R Courtney MD CHEMISTRY ORDERABLES Final Result [facility] [place] [address] documented in this encounter Visit Diagnoses Diagnosis Renal colic- Primary UTI (urinary tract infection) Urinary tract infection, site not specified Ureteral stone with hydronephrosis Calculus of ureter documented in this encounter Administered Medications Inactive Administered Medications - up to 3 most recent administrations Medication Order MAR Action Action Date Dose Rate Site 0.9 % sodium chloride solution at 125 mL/hr, Intravenous, ONCE, 1 dose, On 11/29/20 at 1900 New Bag 11/29/2020 7:06 PM CDT 1,000 mL 125 mL/hr cephALEXin (KEFLEX) capsule 500 mg 500 mg, Oral, ONCE, 1 dose, On 11/29/20 at 2130, Indications: Urinary Tract InfectionIndications:Urinar y Tract Infection iopamidol (ISOVUE-370) 76 % injection 100 mL 100 mL, Intravenous, ONCE, 1 dose, On 11/29/20 at 1930 Given 11/29/2020 7:13 PM CDT 100 mL documented in this encounter Active and Recently Administered Medications Times are shown in CDT. Scheduled Medication Order 11/27/2020 11/28/2020 11/29/2020 0.9 % sodium chloride solution (COMPLETED) at 125 mL/hr, Intravenous, ONCE, 1 dose, On e 11/29/20 at 1900 1906 (New Bag - Prov ider: Ezequiel Lemus RN)2049 (Stopped - Provider: Caron Yuen RN) cephALEXin (KEFLEX) capsule 500 mg 500 mg, Oral, ONCE, 1 dose, On e 11/29/20 at 2130, Indications: Urinary Tract Infection 2129 (Not Given - Pr ovider: Caron Yuen RN - Reason: Order parameters not met - Comment: Pt discharged before order was placed.) iopamidol (ISOVUE-370) 76 % injection 100 mL (COMPLETED) 100 mL, Intravenous, ONCE, 1 dose, On 11/29/20 at 1930 1913 (Given - Provid er: Christina Alvarado, RT(R) ([place])) documented in this encounter Care Teams Restrike Hammer Operator Relationship Specialty Start Date End Date Viraj Romeo PAC [address] [place] [address] PCP - General Physician Director Video 11/20/17 10/24/23 documented as of this encounter
--- OUTSIDE RECORDS SUMMARY | 2024-06-14 16:44 | XMS_ITS | Encounter Summary ---
Author Organization [facility] Address [address] [place] [address] Phone Care Team Providers Care Ob Scrub Tech Name Role Phone Fawn Romeo Primary Care Provider [phone] Reason for Referral * Radiology Services (Routine) - Closed Specialty Diagnoses / Procedures Referred By Alcira forrest Referred To Contact Radiology Diagnoses Ureterolithiasis Procedures US RENAL COMPLETE Elizabeth Alba MD Phone: tel: fax: Referral ID Status Reason Start Date Expiration Date Visits Re quested Visits Authorized [id number] Closed 02/06/2020 1 1 Reason for Visit * Reason Comments Flank Pain * Auth/Cert Specialty Diagnoses / Procedures Referred By Alcira t Referred To Contact Diagnoses Ureterolithiasis Right Ureterolithiasis with severe hydroureteronephrosis Referral ID Status Reason Start Date Expiration Date Visits Re quested Visits Authorized [id number] 1 1 Encounter Details Date Type Department Care Team (Latest Contact Info) Description 02/05/2020 11:15 PM CDT - 02/08/2020 2:10 PM CDT Hospital Encounter [facility] [address] [place] [phone] Azeem Chavez MD [address] [place] [address] Esa Castaneda MD [address] [place] [address] Nita Jerez, HEEL REDUCER, APARTMENT LEASING AGENT [address] [place] [address] Urinary tract obstruction by kidney stone Discharge Disposition: Discharged to home or Selfcare Social History Tobacco Use Types Packs/Day Years Used Date Smoking Tobacco: Former Cigarettes 2 30 1 966 - 1995 Smokeless Tobacco: Never Tobacco Cessation:Counseling Given: No Alcohol Use Standard Drinks/Week Comments Yes 0 [...] Sign Reading Time Taken Comments Blood Pressure 135/64 02/08/2020 7:47 AM CDT Pulse 76 02/07/2020 10:45 PM CDT Temperature 37.6 ??C (99.6 ??F) 02/08/2020 7:47 AM CD T Respiratory Rate 20 02/08/2020 7:47 AM CDT Oxygen Saturation 100% 02/08/2020 7:47 AM CDT Inhaled Oxygen Concentration - - Weight 96.2 kg (212 lb) 02/05/2020 11:19 PM CDT Height 185.4 cm (6' 1 ) 02/05/2020 11:19 PM CDT Body Mass Index 27.97 02/05/2020 11:19 PM CDT documented in this encounter Discharge Summaries * Esa Castaneda MD - 02/08/2020 10:52 AM CDT [facility] SUMMARY Name: Samuel Sanchez Age: 74 y.o. : 1945 Attending Physician: Esa Castaneda MD Admission Date/Time: 02/05/2020 Expected Discharge Date: Primary Care Physician: OMAR VIGIL Discharging Provider: Esa Castaneda MD INSTRUCTIONS FOR PHYSICIANS ON FOLLOW UP AFTER DISCHARGE: Follow-up Information Follow up With Specialties Details Why Contact Info Fawn Romeo PAC Physician Mixing And Dispensing Supervisor Follow up in 1 week(s) [address] [facility] [address] Elizabeth Alba MD Urology Follow up in 2 week(s) with renal US #2 [facility] [id number] Discharge Instructions: Discharge Condition: improved Disposition: Home Diet: Cardiac Diet Activity: activity as tolerated Primary Diagnosis: Urinary tract obstruction by kidney stone Principal Problem: Urinary tract obstruction by kidney stone Active Problems: GERD (gastroesophageal reflux disease) Squamous cell carcinoma of larynx (HCC) Migraine Ureterolithiasis Present on Admission: ??? Urinary tract obstruction by kidney stone ??? GERD (gastroesophageal reflux disease) ??? Squamous cell carcinoma of larynx (HCC) ??? Migraine ??? Ureterolithiasis Admitting Diagnoses: UTI HOSPITAL COURSE: Samuel Sanchez was admitted 02/05/2020 with Urinary tract obstruction by kidney stone . Samuel Jeffery is a 74 y.o. 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 Patient reports the pain as sharp radiating to the back. Patient presented to the ER, CT scan showed 0.5 mm right distal ureter with obstruction and moderate to severe right hydronephrosis. Patient was started on antibiotics and Urology was consulted. UA was positive for pyuria. Patient underwent cystoscopy with right stent insertion and basket stone extraction. Patient tolerated the procedure well however post procedure had a temperature of 101??. Blood culture were negative to date. Urine culture showed greater than 100,000 colonies of Enterococcus which was sensitive to ampicillin. Patient was continued on IV antibiotics during the hospital stay and was discharged home on oral antibiotics. Patient advised to follow-up with primary care physician in 1 week and Urology in 1-2 weeks. All the questions by the patient were answered. ?? Surgeries performed during stay: Procedure(s): CYSTOSCOPY HOLMIUM LASER, RIGHT STENT INSERTION, BASKET STONE EXTRACTION, RIGHT URETEROSCOPY Consults: Treatment Team: Consulting Physician: Elizabeth Alba MD Exam Day of Discharge: Temp Av.9 ??F (37.2 ??C) Min: 98.4 ??F (36.9 ??C) Max: 99.6 ??F (37.6 ??C) BP Min: 117/62 Max: 135/64 Pulse Av Min: 76 Max: 76 Heart Rate (Monitor) Av.5 Min: 82 Max: 83 Resp Av.7 Min: 16 Max: 20 SpO2 Av % Min: 94 % Max: 100 % BMI: Body mass index is 27.97 kg/m??. Exam: General: alert, moderate obesity Skin: Normal. Head: ??Normocephalic, without obvious abnormality HEENT: PERRLA Neck: normal, supple, no thyromegaly Heart: ??regular rate and rhythm, S1, S2 normal, no murmur, click, rub or gallop Lungs: ?? clear to auscultation bilaterally, no rhonchi or wheezes ? Abdominal: soft, right lower quadrant tenderness; bowel sounds normal; no masses, ??no organomegaly Extremities: normal strength, tone, and muscle mass Neuro: oriented, CN II-XII intact Psychological: ??appropriate ?? Lab / Imaging Review: Lab Results Component Value Date WBC 8.06 02/06/2020 HEMOGLOBIN 14.5 02/06/2020 HEMATOCRIT 44.3 02/06/2020 PLATELETCNT 145 02/06/2020 MCV 97.1 (H) 02/06/2020 Lab Results Component Value Date SODIUM 141 02/06/2020 POTASSIUM 3.9 02/06/2020 CHLORIDE 105 02/06/2020 CO2VEN 26 02/06/2020 ANIONGAP 13.9 02/06/2020 GLUCOSE 73 02/06/2020 BUN 25 (H) 02/06/2020 CREATININE 1.13 02/06/2020 BCRATIO8 22 (H) 02/06/2020 TOTALPROTEIN 6.6 02/05/2020 ALBUMIN 4.2 02/05/2020 CALCIUM 9.0 02/06/2020 TBIL 0.4 02/05/2020 SGOTAST 14 02/05/2020 SGPTALT 13 02/05/2020 ALKALINEPHO 65 02/05/2020 GFRNA >60 02/06/2020 GFRA >60 02/06/2020 Lab Results Component Value Date GLUCOSEPOCT 89 02/06/2020 No results found for: INR, PTP No results found for: HGBA1C No results found for: [id number] No results found for: CPK, CPKI, CKMB, CKMBNI, CKMBPOCT, CKMBRELINDX, TROPONINI, POCTRP No results found for: FERRITIN No components found for: FOLATE No results found for: PHARTERIAL, PO2ART, [id number], CO2ART, O2ART No results found for: LACACIDPOCT, LACTICA Xr Surgical Exam Result Date: 02/06/2020 IMPRESSION: 1. Intraoperative fluoroscopic images showing a dilated right ureter with subsequent placement of a right ureteral stent. Please see operative report for further details. Ct Renal Stone Study (abdomen And Pelvis W/o Contrast) Result Date: 02/06/2020 IMPRESSION: 1. 0.5 cm right distal ureter obstructing stone with moderate to severe right hydroureteronephrosis. There is mild perinephric stranding versus trace fluid. 2. Subtle 1-2 mm radiopaque density at the left ureteropelvic junction suspicious for partially obstructing stone. Mild left hydronephrosis. 3. Bilateral sub 6 mm non-obstructing renal stones as described above. DISCHARGE MEDICATION LIST: Medication List START taking these medications amoxicillin-clavulanate 875-125 MG Tabs Commonly known as: AUGMENTIN Take 1 Tab by mouth 2 times daily for 5 days. Indications: Urinary Tract Infection HYDROcodone-acetaminophen 5-325 MG Tabs Commonly known as: NORCO Take 1-2 Tabs by mouth every 4 hours as needed for Moderate or more severe pain. levoFLOXacin 750 MG Tabs Commonly known as: LEVAQUIN Take 1 Tab by mouth daily for 3 days. 1st dose 02/06 ondansetron 4 MG Tab-disperse Commonly known as: ZOFRAN-ODT Take 1 Tab by mouth every 12 hours as needed for Nausea - 1st line. oxybutynin 5 MG Tabs Commonly known as: DITROPAN Take 1 Tab by mouth 2 times daily. phenazopyridine 100 MG Tabs Commonly known as: PYRIDIUM Take 1 Tab by mouth 3 times daily for 3 days. CONTINUE taking these medications Biotin 5 MG Tab-disperse esomeprazole 20 MG Cap-del-rel Commonly known as: NexIUM ICAPS AREDS 2 PO methotrexate 2.5 MG Tabs multi-vitamins Tabs tamsulosin 0.4 MG Caps Commonly known as: FLOMAX STOP taking these medications famotidine 40 MG Tabs Commonly known as: PEPCID Where to Get Your Medications These medications were sent to [id number] - [facility] [address] [place] [id number] Hours: 24-hours ?? HYDROcodone-acetaminophen 5-325 MG Tabs ?? levoFLOXacin 750 MG Tabs ?? ondansetron 4 MG Tab-disperse ?? oxybutynin 5 MG Tabs ?? phenazopyridine 100 MG Tabs Information about where to get these medications is not yet available Ask your nurse or doctor about these medications ?? amoxicillin-clavulanate 875-125 MG Tabs Time spent on interview, examination, final orders, recommendations, and care coordination for thishospital discharge: Greater than 30 minutes spent in coordinating care Thank you very much for allowing the [facility] Adult Hospitalist Service to participate in the care of this patient. If you have any questions, please don't hesitate to call. Signed: Esa Castaneda MD, 02/08/2020, 10:52 AM CDT documented in this encounter Discharge Instructions * Attachments The following attachments cannot be sent through Care Everywhere. * Angioplasty and Stenting, Renal (Welsh) * Amoxicillin; Clavulanic Acid tablets (Welsh) * Acetaminophen; Hydrocodone tablets or capsules (Welsh) * Levofloxacin tablets (Welsh) * Phenazopyridine tablets (Welsh) documented in this encounter Medications at Time [...] Take 0.4 mg by mouth daily. 12/16/2019 amoxicillin-clavu lanate (AUGMENTIN) 875-125 MG TabletIndications :Urinary Tract Infection Take 1 Tab by mouth 2 times daily for 5 days. Indications: Urinary Tract Infection 10 Tab 02/08/2020 0 phenazopyridine (PYRIDIUM) 100 MG Tablet Take 1 Tab by mouth 3 times daily for 3 days. 9 Tab 02/06/2020 0 documented as of this encounter Progress Notes * Esa Castaneda MD - 02/07/2020 1:35 PM CDT [facility] DA[facility] PROGRESS NOTE Anticipated Date of Discharge: 02/08/2020 Samuel Sanchez is a 74 y.o. male at Hospital LOS: 1 day Assessment: Active Hospital Problems Diagnosis Date Noted ??? Urinary tract obstruction by kidney stone 02/06/2020 ??? GERD (gastroesophageal reflux disease) 02/06/2020 ??? Squamous cell carcinoma of larynx (HCC) 02/06/2020 ??? Migraine 02/06/2020 ??? Ureterolithiasis 02/06/2020 Resolved Hospital Problems No resolved problems to display. Vitals: 02/06/20 1905 02/06/20 2300 02/07/20 0718 02/07/20 0744 Temp: 99.9 ??F (37.7 ??C) 99.9 ??F (37.7 ??C) 98.8 ??F (37.1 ??C) TempSrc: Heart Rate (Monitor): 77 Pulse: 72 Resp: 16 18 BP: 110/71 119/58 Height: Weight: SpO2: 98% 96% 100% O2 Device: None (Room air) Body mass index is 27.97 kg/m??. I/O last 3 completed shifts: In: 3325 [P.O.:480; I.V.:2845] Out: 930 [Urine:925; Blood:5] Plan: Right distal ureter kidney stone Noted on the CT measuring 0.5 cm in the right distal ureteral obstructing stone with moderate to severe right hydroureteronephrosis, s/p stent placement POD 1 Will keep patient NPO with IV hydration Started on Flomax Continue Rocephin. ?? Suspect possible UTI UA positive for WC BC esterase 25 and wbc's 11-20 Started on Rocephin ?? History of squamous cell carcinoma of the larynx Treated with surgery, managed by ENT ?? GERD Resume PPI ?? History of migraines Currently not an acute problem ?? Code Status: Code Status: Full code ? VTE Prophylaxis: Lovenox 40mg Q24h ?? Subjective: Interval History: No acute events overnight.Patient post surgery was febrile . Blood cultures drawn. Postoperative day 1. Review of Systems: A 14 point comprehensive review of systems was negative, except as documented in HPI. Objective: Exam: General: alert, moderate obesity Skin: Normal. Head: Normocephalic, without obvious abnormality HEENT: PERRLA Neck: normal, supple, no thyromegaly Heart: regular rate and rhythm, S1, S2 normal, no murmur, click, rub or gallop Lungs: clear to auscultation bilaterally, no rhonchi or wheezes Abdominal: soft, right lower quadrant tenderness; bowel sounds normal; no masses, no organomegaly Extremities: normal strength, tone, and muscle mass Neuro: oriented, CN II-XII intact Psychological: appropriate Lab Results: No results found for: PHARTERIAL, PO2ART, [id number], CO2ART, O2ART Lab Results Component Value Date WBC 8.06 02/06/2020 HEMOGLOBIN 14.5 02/06/2020 HEMATOCRIT 44.3 02/06/2020 PLATELETCNT 145 02/06/2020 MCV 97.1 (H) 02/06/2020 Lab Results Component Value Date SODIUM 141 02/06/2020 POTASSIUM 3.9 02/06/2020 CHLORIDE 105 02/06/2020 CO2VEN 26 02/06/2020 ANIONGAP 13.9 02/06/2020 GLUCOSE 73 02/06/2020 BUN 25 (H) 02/06/2020 CREATININE 1.13 02/06/2020 BCRATIO8 22 (H) 02/06/2020 TOTALPROTEIN 6.6 02/05/2020 ALBUMIN 4.2 02/05/2020 CALCIUM 9.0 02/06/2020 TBIL 0.4 02/05/2020 SGOTAST 14 02/05/2020 SGPTALT 13 02/05/2020 ALKALINEPHO 65 02/05/2020 GFRNA >60 02/06/2020 GFRA >60 02/06/2020 No results found for: CPK, CPKI, CKMB, CKMBNI, CKMBPOCT, CKMBRELINDX, TROPONINI, POCTRP No components found for: FOLATE No results found for: LACACIDPOCT, LACTICA No results found for: [id number] No results found for: FERRITIN Lab Results Component Value Date GLUCOSEPOCT 89 02/06/2020 EKG: Ekg 12 Lead Result Date: 02/07/2020 Sinus rhythm with borderline 1st degree A-V block Comparison Summary: No serial comparison made Summary: Borderline [place] [id number] on 02/07/2020 6:57:21 AM Imaging: No results found. By: Esa Castaneda MD, 02/07/2020 1:35 PM CDT * Elizabeth Alba MD - 02/07/2020 1:04 PM CDT UROLOGY PROGRESS NOTE Patient is s/p R Ureteroscopy, laser lithotripsy and stent placement He was admitted for febrile episode Urine and blood cultures sent. He does complain of headache. No flank pain or discomfort with the stent Vitals: 02/06/20 1905 02/06/20 2300 02/07/20 0718 02/07/20 0744 BP: 110/71 119/58 Pulse: 72 Resp: 16 18 Temp: 99.9 ??F (37.7 ??C) 99.9 ??F (37.7 ??C) 98.8 ??F (37.1 ??C) TempSrc: SpO2: 98% 96% 100% Weight: Height: Alert and awake Non labored breathing abd soft not distended A/P Continue IV antibiotics till culture results return Ok to pull stent out in 4 days * Esa Castaneda MD - 02/07/2020 9:36 AM CDT [facility] DA[facility] PROGRESS NOTE Anticipated Date of Discharge: 02/08/2020 Samuel Sanchez is a 74 y.o. male at Hospital LOS: 1 day Assessment: Active Hospital Problems Diagnosis Date Noted ??? Urinary tract obstruction by kidney stone 02/06/2020 ??? GERD (gastroesophageal reflux disease) 02/06/2020 ??? Squamous cell carcinoma of larynx (HCC) 02/06/2020 ??? Migraine 02/06/2020 ??? Ureterolithiasis 02/06/2020 Resolved Hospital Problems No resolved problems to display. Vitals: 02/06/20 1905 02/06/20 2300 02/07/20 0718 02/07/20 0744 Temp: 99.9 ??F (37.7 ??C) 99.9 ??F (37.7 ??C) 98.8 ??F (37.1 ??C) TempSrc: Heart Rate (Monitor): 77 Pulse: 72 Resp: 16 18 BP: 110/71 119/58 Height: Weight: SpO2: 98% 96% 100% O2 Device: None (Room air) Body mass index is 27.97 kg/m??. I/O last 3 completed shifts: In: 3325 [P.O.:480; I.V.:2845] Out: 930 [Urine:925; Blood:5] Plan: Right distal ureter kidney stone Noted on the CT measuring 0.5 cm in the right distal ureteral obstructing stone with moderate to severe right hydroureteronephrosis, s/p stent placement POD 1 Will keep patient NPO with IV hydration Started on Flomax Continue Rocephin. ?? Suspect possible UTI UA positive for WC BC esterase 25 and wbc's 11-20 Started on Rocephin ?? History of squamous cell carcinoma of the larynx Treated with surgery, managed by ENT ?? GERD Resume PPI ?? History of migraines Currently not an acute problem ?? Code Status: Code Status: Full code ? VTE Prophylaxis: Lovenox 40mg Q24h ?? Subjective: Interval History: No acute events overnight.Patient post surgery was febrile . Blood cultures drawn. Review of Systems: A 14 point comprehensive review of systems was negative, except as documented in HPI. Objective: Exam: General: alert, moderate obesity Skin: Normal. Head: Normocephalic, without obvious abnormality HEENT: PERRLA Neck: normal, supple, no thyromegaly Heart: regular rate and rhythm, S1, S2 normal, no murmur, click, rub or gallop Lungs: clear to auscultation bilaterally, no rhonchi or wheezes Abdominal: soft, right lower quadrant tenderness; bowel sounds normal; no masses, no organomegaly Extremities: normal strength, tone, and muscle mass Neuro: oriented, CN II-XII intact Psychological: appropriate Lab Results: No results found for: PHARTERIAL, PO2ART, [id number], CO2ART, O2ART Lab Results Component Value Date WBC 8.06 02/06/2020 HEMOGLOBIN 14.5 02/06/2020 HEMATOCRIT 44.3 02/06/2020 PLATELETCNT 145 02/06/2020 MCV 97.1 (H) 02/06/2020 Lab Results Component Value Date SODIUM 141 02/06/2020 POTASSIUM 3.9 02/06/2020 CHLORIDE 105 02/06/2020 CO2VEN 26 02/06/2020 ANIONGAP 13.9 02/06/2020 GLUCOSE 73 02/06/2020 BUN 25 (H) 02/06/2020 CREATININE 1.13 02/06/2020 BCRATIO8 22 (H) 02/06/2020 TOTALPROTEIN 6.6 02/05/2020 ALBUMIN 4.2 02/05/2020 CALCIUM 9.0 02/06/2020 TBIL 0.4 02/05/2020 SGOTAST 14 02/05/2020 SGPTALT 13 02/05/2020 ALKALINEPHO 65 02/05/2020 GFRNA >60 02/06/2020 GFRA >60 02/06/2020 No results found for: CPK, CPKI, CKMB, CKMBNI, CKMBPOCT, CKMBRELINDX, TROPONINI, POCTRP No components found for: FOLATE No results found for: LACACIDPOCT, LACTICA No results found for: [id number] No results found for: FERRITIN Lab Results Component Value Date GLUCOSEPOCT 89 02/06/2020 EKG: Ekg 12 Lead Result Date: 02/07/2020 Sinus rhythm with borderline 1st degree A-V block Comparison Summary: No serial comparison made Summary: Borderline [place] [id number] on 02/07/2020 6:57:21 AM Imaging: Xr Surgical Exam Result Date: 02/06/2020 IMPRESSION: 1. Intraoperative fluoroscopic images showing a dilated right ureter with subsequent placement of a right ureteral stent. Please see operative report for further details. By: Esa Castaneda MD, 02/07/2020 9:36 AM CDT * Esa Castaneda MD - 02/06/2020 5:00 PM CDT [facility] DA[facility] PROGRESS NOTE Anticipated Date of Discharge: 02/08/2020 Samuel Sanchez is a 74 y.o. male at Hospital LOS: 17 hours Assessment: Active Hospital Problems Diagnosis Date Noted ??? Urinary tract obstruction by kidney stone 02/06/2020 ??? GERD (gastroesophageal reflux disease) 02/06/2020 ??? Squamous cell carcinoma of larynx (HCC) 02/06/2020 ??? Migraine 02/06/2020 ??? Ureterolithiasis 02/06/2020 Resolved Hospital Problems No resolved problems to display. Vitals: 02/06/20 1315 02/06/20 1345 02/06/20 1415 02/06/20 1615 Temp: 98 ??F (36.7 ??C) 98 ??F (36.7 ??C) 100.1 ??F (37.8 ??C) (!) 101.2 ??F (38.4 ??C) TempSrc: Tympanic Tympanic Tympanic Tympanic Heart Rate (Monitor): 75 67 71 99 Pulse: Resp: 18 18 20 20 BP: 116/62 120/66 149/78 129/76 Height: Weight: SpO2: 98% 99% 95% 93% O2 Device: None (Room air) Body mass index is 27.97 kg/m??. I/O last 3 completed shifts: In: 1015 [P.O.:20; I.V.:995] Out: 205 [Urine:200; Blood:5] Plan: Right distal ureter kidney stone Noted on the CT measuring 0.5 cm in the right distal ureteral obstructing stone with moderate to severe right hydroureteronephrosis, patient scheduled for surgery today Will keep patient NPO with IV hydration Started on Flomax and consult Urology Continue Rocephin. ?? Suspect possible UTI UA positive for WC BC esterase 25 and wbc's 11-20 Started on IV Levaquin for now await, follow up on urine culture ?? History of squamous cell carcinoma of the larynx Treated with surgery, managed by ENT ?? GERD Resume PPI ?? History of migraines Currently not an acute problem ?? Code Status: Code Status: Full code ? VTE Prophylaxis: Lovenox 40mg Q24h ?? Subjective: Interval History: No acute events overnight. Patient does not complain of any new symptoms. . Patient scheduled for surgery today Review of Systems: A 14 point comprehensive review of systems was negative, except as documented in HPI. Objective: Exam: General: alert, moderate obesity Skin: Normal. Head: Normocephalic, without obvious abnormality HEENT: PERRLA Neck: normal, supple, no thyromegaly Heart: regular rate and rhythm, S1, S2 normal, no murmur, click, rub or gallop Lungs: clear to auscultation bilaterally, no rhonchi or wheezes Abdominal: soft, right lower quadrant tenderness; bowel sounds normal; no masses, no organomegaly Extremities: normal strength, tone, and muscle mass Neuro: oriented, CN II-XII intact Psychological: appropriate Lab Results: No results found for: PHARTERIAL, PO2ART, [id number], CO2ART, O2ART Lab Results Component Value Date WBC 8.06 02/06/2020 HEMOGLOBIN 14.5 02/06/2020 HEMATOCRIT 44.3 02/06/2020 PLATELETCNT 145 02/06/2020 MCV 97.1 (H) 02/06/2020 Lab Results Component Value Date SODIUM 141 02/06/2020 POTASSIUM 3.9 02/06/2020 CHLORIDE 105 02/06/2020 CO2VEN 26 02/06/2020 ANIONGAP 13.9 02/06/2020 GLUCOSE 73 02/06/2020 BUN 25 (H) 02/06/2020 CREATININE 1.13 02/06/2020 BCRATIO8 22 (H) 02/06/2020 TOTALPROTEIN 6.6 02/05/2020 ALBUMIN 4.2 02/05/2020 CALCIUM 9.0 02/06/2020 TBIL 0.4 02/05/2020 SGOTAST 14 02/05/2020 SGPTALT 13 02/05/2020 ALKALINEPHO 65 02/05/2020 GFRNA >60 02/06/2020 GFRA >60 02/06/2020 No results found for: CPK, CPKI, CKMB, CKMBNI, CKMBPOCT, CKMBRELINDX, TROPONINI, POCTRP No components found for: FOLATE No results found for: LACACIDPOCT, LACTICA No results found for: [id number] No results found for: FERRITIN Lab Results Component Value Date GLUCOSEPOCT 89 02/06/2020 EKG: No results found. Imaging: Xr Surgical Exam Result Date: 02/06/2020 IMPRESSION: 1. Intraoperative fluoroscopic images showing a dilated right ureter with subsequent placement of a right ureteral stent. Please see operative report for further details. Ct Renal Stone Study (abdomen And Pelvis W/o Contrast) Result Date: 02/06/2020 IMPRESSION: 1. 0.5 cm right distal ureter obstructing stone with moderate to severe right hydroureteronephrosis. There is mild perinephric stranding versus trace fluid. 2. Subtle 1-2 mm radiopaque density at the left ureteropelvic junction suspicious for partially obstructing stone. Mild left hydronephrosis. 3. Bilateral sub 6 mm non-obstructing renal stones as described above. By: Esa Castaneda MD, 02/06/2020 5:00 PM CDT documented in this encounter H&P Notes * Nita Jerez, DIRECTOR OF EMPLOYER SERVICES, APARTMENT LEASING AGENT - 02/06/2020 1:45 AM CDT [facility] ADMISSION HISTORY & PHYSICAL HPI: Samuel Sanchez is a 74 y.o. 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 Patient reports he helps take care of his at home with wheelchair bound. He reports she had a fall that he had a lift her up back into her wheelchair. He had a sudden onset of right flank pain that he thought was due to the fall. He reports the pain continued throughout in the evening and became more progressive therefore he decided to come to the emergency room for evaluation. Underwent a CT renal stone that showed a 0.5 cm right distal ureteral obstructive stone with moderate to severe right hydroureteronephrosis. Laboratory data were essentially unremarkable Urine analysis was positive for 25 leuko esterase, 11-20 wbc's, otherwise unremarkable. Patient admitted for further management Allergies: has No Known Allergies. Home Medications: None Past Medical History: He has a past medical history of GERD (gastroesophageal reflux disease), Migraine, and Squamous cell carcinoma of larynx (HCC). Surgical History: has a past surgical history that includes Laryngoscopy (02/2019); Testicle Removal (1969); Vasectomy (1969); Rotator Cuff Repair (Right, 1969); Biceps Tenodesis (Left, 1969); and Prostate Surgery (1969). Social History: reports that he quit smoking about 24 years ago. His smoking use included cigarettes. He has a 60.00 pack-year smoking history. He has never used smokeless tobacco. He reports currentalcohol use. He reports previous drug use. Family History: family history is not on file. He was adopted. Review of Systems: reports progressive right flank pain. Denies lightheaded, dizziness blurred vision. Denies Fever, chills, SOB, cough, sore throat. Denies Chest pain, heart palpitations. Denies abdominal pain, deniesconstipation, Denies nausea, vomiting, diarrhea, or constipation. Denies LE swelling. Physical Exam: VITALS:Temp Av.8 ??F (36.6 ??C) Min: 97.8 ??F (36.6 ??C) Max: 97.8 ??F (36.6 ??C) BP Min: 115/78 Max: 137/78 Pulse Av.8 Min: 53 Max: 78 Heart Rate (Monitor) Av Min: 65 Max: 65 Resp Av Min: 18 Max: 18 SpO2 Av.4 % Min: 96 % Max: 100 % No intake/output data recorded. Weight: Wt Readings from Last 1 Encounters: 02/05/20 212 lb (96.2 kg) General: well developed well nourished, alert, oriented and in no acute distress Skin: normal coloration and turgor, no rashes HEENT: normocephalic, atraumatic. Pupils equal, round and reactive to light. Extraocular movements intact. Oronasopharynx pink and moist, no lesion or exudate. Neck: Supple. No JVD, lymphadenopathy thyromegaly or carotid bruits auscultated CVS: RRR, S1/S2 normal, no murmurs, gallops or rubs Chest: clear to auscultation, no wheezes, rales or rhonchi, symmetric air entry and normal respiratory effort Abdominal: soft, nontender, nondistended. Positive Bowel sounds, no organomegaly appreciated Extremities: no edema, no clubbing or cyanosis Neuro: Alert and orient x 3. Moves all extremities well. No neurological deficits noted on exam. Gait not tested Data Review: Ct Renal Stone Study (abdomen And Pelvis W/o Contrast) Result Date: 02/06/2020 IMPRESSION: 1. 0.5 cm right distal ureter obstructing stone with moderate to severe right hydroureteronephrosis. There is mild perinephric stranding versus trace fluid. 2. Subtle 1-2 mm radiopaque density at the left ureteropelvic junction suspicious for partially obstructing stone. Mild left hydronephrosis. 3. Bilateral sub 6 mm non-obstructing renal stones as described above. Lab Results Component Value Date WBC 5.48 02/05/2020 HEMOGLOBIN 15.3 02/05/2020 HEMATOCRIT 45.9 02/05/2020 PLATELETCNT 150 02/05/2020 MCV 95.4 02/05/2020 Lab Results Component Value Date SODIUM 141 02/05/2020 POTASSIUM 3.5 02/05/2020 CHLORIDE 104 02/05/2020 CO2VEN 27 02/05/2020 ANIONGAP 13.5 02/05/2020 GLUCOSE 137 (H) 02/05/2020 BUN 24 (H) 02/05/2020 CREATININE 1.24 02/05/2020 BCRATIO8 19 02/05/2020 TOTALPROTEIN 6.6 02/05/2020 ALBUMIN 4.2 02/05/2020 CALCIUM 9.4 02/05/2020 TBIL 0.4 02/05/2020 SGOTAST 14 02/05/2020 SGPTALT 13 02/05/2020 ALKALINEPHO 65 02/05/2020 GFRNA 57 (L) 02/05/2020 GFRA >60 02/05/2020 No results found for: PHARTERIAL, PO2ART, LCS5EGK, CO2ART, O2ART No results found for: CPK, CPKI, CKMB, CKMBNI, CKMBPOCT, CKMBRELINDX, TROPONINI, POCTRP No results found for: AMYL, AMYLASE No results found for: LIPASE No results found for: CHOLESTEROL, TRIGLYCRIDES, HDLCHOLESTE, LDL Assessment/Plan Patient Active Problem List Diagnosis ??? Urinary tract obstruction by kidney stone ??? GERD (gastroesophageal reflux disease) ??? Squamous cell carcinoma of larynx (HCC) ??? Migraine Plan: Right distal ureter kidney stone Noted on the CT measuring 0.5 cm in the right distal ureteral obstructing stone with moderate to severe right hydroureteronephrosis Will keep patient NPO with IV hydration Started on Flomax and consult Urology Pain management Suspect possible UTI UA positive for WC BC esterase 25 and wbc's 11-20 Started on IV Levaquin for now await, follow up on urine culture History of squamous cell carcinoma of the larynx Treated with surgery, managed by ENT GERD Resume PPI History of migraines Currently not an acute problem Code Status: Code Status: Full code VTE Prophylaxis: Lovenox 40mg Q24h Thank you very much for allowing the [facility] Adult Hospitalist [facility] to participate in the care of this patient By: Nita Jerez APN, APARTMENT LEASING AGENT, 02/06/2020, 1:45 AM CDT Primary Care Physician: FAWN ROMEO, PAC Cosigned by Esa Castaneda MD at 02/06/2020 11:30 AM CDT Associated attestation - Esa Castaneda MD - 02/06/2020 11:30 AM CDT ADULT HOSPITALIST ATTENDING I have seen and evaluated the patient and discussed the patient's management with the nurse practitioner. I agree with the history, physical, assessment, and plan as outlined in the attached note. Esa Castaneda MD 02/06/2020 11:30 AM CDT documented in this encounter Consult Notes * Elizabeth Alba MD - 02/06/2020 11:44 AM CDTAssociated Order(s): IP CONSULT TO UROLOGY ADULT UROLOGY CONSULT Date of Consult: 02/06/2020 Samuel Sanchez was admitted by the medicine service on 02/05/2020 for ureteral stone. I was askedto see the patient and provide recommendations for management of same. HPI Patient with sudden onset of right flank pain No fever or chills. He had nausea and no vomiting CT scan in the ED showed a distal ureteral stone. Urology consulted to assist in management He was admitted for pain control HOME MEDICATIONS: Prior to Admission Medications Prescriptions Last Dose Informant Patient Reported? Taking? Biotin 5 MG TABLET DISPERSIBLE 02/05/2020 at 0800 Yes Yes Sig: Take 5,000 mcg by mouth daily. Multiple Vitamin (multi-vitamins) Tablet 02/05/2020 at 0800 Yes Yes Sig: Take 1 Tab by mouth daily. Multiple Vitamins-Minerals (ICAPS AREDS 2 PO) 02/05/2020 at 2100 Yes Yes Sig: Take 2 Tabs by mouth 2 times daily. esomeprazole (NexIUM) 20 MG CAPSULE DELAYED RELEASE 02/05/2020 at 0800 Yes Yes Sig: Take 20 mg by mouth daily. famotidine (PEPCID) 40 MG Tablet 02/05/2020 at 2100 Yes No Sig: Take 40 mg by mouth nightly. methotrexate 2.5 MG Tablet 01/30/2020 at 0800 Yes Yes Sig: Take 6 Tabs by mouth once a week tamsulosin (FLOMAX) 0.4 MG Capsule 02/05/2020 at 0800 Yes Yes Sig: Take 0.4 mg by mouth daily. Facility-Administered Medications: None ALLERGIES: Allergies There is no known ICA information for this patient. INPATIENT MEDS: enoxaparin, 40 mg, Q24H JUDE ePHEDrine, , fentaNYL (PF), , [START ON 02/07/2020] levofloxacin, 750 mg, Q24H multiple vitami/antioxidants, 1 Tab, Daily pantoprazole, 20 mg, Daily tamsulosin, 0.4 mg, Daily acetaminophen, 650 mg, Q4H PRN Or acetaminophen, 650 mg, Q4H PRN HYDROcodone-acetaminophen, 1-2 Tab, Q4H PRN ketorolac, 15 mg, Q6H PRN morphine, 2 mg, Q2H PRN ondansetron, 4 mg, Q12H PRN Or ondansetron, 4 mg, Q12H PRN Prochlorperazine Edisylate, 10 mg, Q6H PRN sodium chloride, Last Rate: 100 mL/hr at 02/06/20 0309 REVIEW OF SYSTEMS: All Review of Systems obtained, and is negative other than that mentioned in the History of PresentIllness. PAST MEDICAL HISTORY He has a past medical history of GERD (gastroesophageal reflux disease), Migraine, and Squamous cell carcinoma of larynx (HCC). PAST SURGICAL HISTORY: has a past surgical history that includes Laryngoscopy (02/2019); Testicle Removal (1969); Vasectomy (1969); Rotator Cuff Repair (Right, 1969); Biceps Tenodesis (Left, 1969); and Prostate Surgery (1969). FAMILY HISTORY: family history is not on file. He was adopted. SOCIAL HISTORY : reports that he quit smoking about 24 years ago. His smoking use included cigarettes. He has a 60.00 pack-year smoking history. He has never used smokeless tobacco. He reports current alcohol use. Hereports previous drug use. PHYSICAL EXAM : VITALS: Patient Vitals for the past 12 hrs: BP Temp Pulse Heart Rate (Monitor) Resp SpO2 Temp src 02/06/20 0833 -- -- 56 -- 16 96 % -- 02/06/20 0821 -- 97.7 ??F (36.5 ??C) -- -- -- -- -- 02/06/20 0700 122/78 97.7 ??F (36.5 ??C) -- (!) 59 18 99 % Oral 02/06/20 0257 -- -- 61 -- -- 98 % -- 02/06/20 0220 123/79 97.6 ??F (36.4 ??C) 54 -- 18 98 % -- 02/06/20 0115 122/80 -- 69 -- -- 98 % -- 02/06/20 0100 115/78 -- 53 -- -- 98 % -- 02/06/20 0045 118/72 -- 58 -- -- 96 % -- 02/06/20 0030 (!) 120/109 -- 78 -- -- 99 % -- 02/06/20 0015 137/78 -- 61 -- -- 98 % -- 02/06/20 0000 126/77 -- 65 -- -- 98 % -- Temp (24hrs), Av.7 ??F (36.5 ??C), Min:97.6 ??F (36.4 ??C), Max:97.8 ??F (36.6 ??C) Weight: Wt Readings from Last 1 Encounters: 02/05/20 212 lb (96.2 kg) General: alert, oriented and in no acute distress. Skin: normal coloration and turgor, no rashes, no suspicious skin lesions noted. HEENT: normocephalic, atraumatic. Pupils equal, round and reactive to light. Extraocular movements intact. Oronasopharynx pink and moist. Neck: No JVD, thyromegaly or carotid bruits auscultated. No mass or lymphadenopathy. CVS: normal rate, regular rhythm, normal S1, S2, no murmurs, rubs, clicks or gallops, RRR, S1/S2 normal, no murmur. Chest: clear to auscultation, no wheezes, rales or rhonchi, symmetric air entry, clear to auscultation, no wheezes, rales or rhonchi, symmetric air entry and normal respiratory effort. Abdominal: soft, nontender, nondistended, no masses or organomegaly, soft, nontender, nondistended.Positive Bowel sounds, no organomegaly appreciated. Extremities: peripheral pulses normal, no pedal edema, no clubbing or cyanosis, no edema, no clubbing or cyanosis. Neuro: alert, oriented, normal speech, no focal findings or movement disorder noted, cranial nervesII through XII intact, DTR's normal and symmetric, motor and sensory grossly normal bilaterally, CN2-12 grossly intact, normal speech, no focal findings or movement disorder noted. Gait not tested.. DATA REVIEW : CBC: Lab Results Component Value Date WBC 8.06 02/06/2020 HEMOGLOBIN 14.5 02/06/2020 HEMATOCRIT 44.3 02/06/2020 PLATELETCNT 145 02/06/2020 CMP: Lab Results Component Value Date GLUCOSE 73 02/06/2020 SODIUM 141 02/06/2020 POTASSIUM 3.9 02/06/2020 CHLORIDE 105 02/06/2020 CO2VEN 26 02/06/2020 BUN 25 (H) 02/06/2020 CREATININE 1.13 02/06/2020 CALCIUM 9.0 02/06/2020 SGPTALT 13 02/05/2020 ALBUMIN 4.2 02/05/2020 ALKALINEPHO 65 02/05/2020 Ct Renal Stone Study (abdomen And Pelvis W/o Contrast) Result Date: 02/06/2020 IMPRESSION: 1. 0.5 cm right distal ureter obstructing stone with moderate to severe right hydroureteronephrosis. There is mild perinephric stranding versus trace fluid. 2. Subtle 1-2 mm radiopaque density at the left ureteropelvic junction suspicious for partially obstructing stone. Mild left hydronephrosis. 3. Bilateral sub 6 mm non-obstructing renal stones as described above. ASSESSMENT: Active Hospital Problems Diagnosis Date Noted ??? Urinary tract obstruction by kidney stone 02/06/2020 ??? GERD (gastroesophageal reflux disease) 02/06/2020 ??? Squamous cell carcinoma of larynx (HCC) 02/06/2020 ??? Migraine 02/06/2020 ??? Ureterolithiasis 02/06/2020 Resolved Hospital Problems No resolved problems to display. PLAN: Schedule for cystoscopy and right ureteral stent placement Possible right ureteroscopy and laser lithotripsy Risks, benefits and alternatives explained Thank you for this consult. More recommendations will be made as appropriate based on progress during hospitalization. Documentation for this visit on 02/06/20 was completed using a template. I have seen and examined the patient. Everything documented was personally performed at this visit with the necessary additions, deletions and changes made as appropriate. Elizabeth Alba MD 02/06/202011:45 AM CDT Primary Care Physician: FAWN ROMEO, PAC documented in this encounter Nursing Notes * Landry Corcoran RN - 02/06/2020 12:33 PM CDT Specimen Transported to SPECIMEN ROOM by GAY CORCORAN. documented in this encounter OR Notes * OR Surgeon - Elizabeth Alba MD - 02/06/2020 12:32 PM CDT 02/06/2020 PreOp: right ureteral stone PostOp: RIGHT URETERAL STONE Procedure(s): Cystoscopy, right retrograde pyelogram Right ureteroscopy, laser lithotripsy and stent placement Surgeon(s): Elizabeth Alba MD DENTAL LABORATORY TECHNICIAN: Nikki Sr APN, CRNA Estimated Blood Loss: EBL: 5 mL ML ID Type Source Tests Collected by Time Destination A : RIGHT URETERAL STONE Tissue Ureter PATHOLOGY SURGICAL Elizabeth Alba MD 02/06/2020 1229 * No complications entered in OR log * TimeOut Immediately prior to procedure, time out was performed to include correct patient, agreement on procedure to be performed, correct side, site, position, accurate procedure consent, relevant images, antibiotics, fluids, safety precautions and availability of any special implants that might be required The patient was prepped and draped in the standard surgical fashion in the dorsal lithotomy position. A 22 Fr rigid cystoscope was placed per urethra into the bladder and the bladder was inspected and noted to be free of any suspicious lesions. Using a 5Fr open ended catheter a right retrograde pyelogram was performed that showed distal ureteral stone and mild hydronephrosis. A sensor guidewire was placed into the RIGHT ureteral orifice to the renal pelvis under fluoroscopic guidance. The bladder was drained and the cystoscope was removed over the wire. A semirigid ureteroscope was passed perurethra into the ureter alongside the wire and the stone was immediately apparent. Using a 365 micron laser fiber, the stone was fragmented into pieces smaller than 2 mm in diameter. Larger fragmentswere pulled out with a basket. The semirigid ureteroscope was passed to the proximal ureter and theureter was inspected and noted to be free of any stone fragments. The ureteroscope was removed and a 6x26cm double J stent was placed over the guidewire under fluoroscopic guidance and deployed with good coils in the renal pelvis and in the bladder. The bladder was drained using the obturator sheath. The patient tolerated the procedure well and post-operatively was transferred to the PACU in stable condition, extubated. The string was left on the stent and the patient will remove the stent at home in 5 days time. The patient will return to clinic in 2 weeks time. Documentation for this visit on 02/06/20 was completed using a template. I have seen and examined the patient. Everything documented was personally performed at this visit with the necessary additions, deletions and changes made as appropriate. documented in this encounter ED Notes * Caryn Montano RN - 02/06/2020 2:04 AM CDT Pt transported to floor via wheelchair. IV fluid antibiotic infusing on transfer. No signs of distress noted and respirations non labored. All belongings sent with pt. * Caryn Montano RN - 02/06/2020 2:03 AM CDT Report given to GAY Hughes. * Caryn Montano RN - 02/06/2020 2:02 AM CDT Pt medicated per provider orders. Pt educated on intended effects and side effects of medication and verbalized understanding, able to provide teach back of education. * Senia Guan - 02/06/2020 1:18 AM CDT [facility] line contacted and paged. * Caryn Montano RN - 02/06/2020 12:23 AM CDT Pt medicated per provider orders. Pt educated on intended effects and side effects of medication and verbalized understanding, able to provide teach back of education. * Azeem Chavez MD - 02/05/2020 11:21 PM CDT Images from the original note were not included. Chief Complaint Patient presents with ??? Flank Pain Patient is a 74-year-old male presents emergency room with right flank pain. Patient states he started feeling the twinges rights sided back yesterday. He thought it was related to strain after he had to help lift his up from the floor. Today the pain intensified. He does not radiate at all. He has had associated nausea but no vomiting. He has had no fever chills. He denies any urinary symptoms. Patient has had 7 kidney stones in the past and feels this is another. Current Facility-Administered Medications Medication Dose Route Frequency Provider Last Rate Last Dose ??? levoFLOXacin (LEVAQUIN) IV 750 mg 750 mg Intravenous Once Azeem Chavez MD ??? Prochlorperazine Edisylate (COMPAZINE) injection 10 mg 10 mg Intravenous Q6H PRN Azeem Chavez MD 10 mg at 02/06/20 0016 No current outpatient medications on file. No Known Allergies Past Medical History Positives Diagnosis Date ??? GERD (gastroesophageal reflux disease) ??? Migraine ??? Squamous cell carcinoma of larynx (HCC) Past Surgical History: Procedure Laterality Date ??? BICEPS TENODESIS Left 1969 ??? LARYNGOSCOPY 02/2019 ??? PROSTATE SURGERY 1970 ??? ROTATOR CUFF REPAIR Right 1970 ??? TESTICLE REMOVAL 1969 ??? VASECTOMY 1970 Social History Socioeconomic History ??? Marital status: Spouse name: Not on file ??? Number of children: Not on file ??? Years of education: Not on file ??? Highest education level: Not on file Occupational History ??? Not on file Social Needs ??? Financial resource strain: Not on file ??? Food insecurity Worry: Not on file Inability: Not on file ??? Transportation needs Medical: Not on file Non-medical: Not on file Tobacco Use ??? Smoking status: Former Smoker Packs/day: 2.00 Years: 30.00 Pack years: 60.00 Types: Cigarettes Quit date: 1995 Years since quittin.6 ??? Smokeless tobacco: Never Used Substance and Sexual Activity ??? Alcohol use: Yes ??? Drug use: Not Currently ??? Sexual activity: Not on file Lifestyle ??? Physical activity Days per week: Not on file Minutes per session: Not on file ??? Stress: Not on file Relationships ??? Social connections Talks on phone: Not on file Gets together: Not on file Attends jehovah's witness service: Not on file Active member of club or organization: Not on file Attends meetings of clubs or organizations: Not on file Relationship status: Not on file ??? Intimate partner violence Fear of current or ex partner: Not on file Emotionally abused: Not on file Physically abused: Not on file Forced sexual activity: Not on file Other Topics Concern ??? Not on file Social History Narrative ??? Not on file BP 122/80 Pulse 69 Temp 97.8 ??F (36.6 ??C) (Temporal) Resp 18 Ht 6' 1 (1.854 m) Wt 212lb (96.2 kg) SpO2 98% BMI 27.97 kg/m?? Review of Systems Constitutional: Negative for activity change, appetite change, chills, diaphoresis and fever. HENT: Negative for ear pain, sinus pressure, sinus pain and trouble swallowing. Eyes: Negative for visual disturbance. Respiratory: Negative for apnea, choking and chest tightness. Cardiovascular: Negative for chest pain. Gastrointestinal: Negative for abdominal pain, diarrhea, nausea and vomiting. Endocrine: Negative for cold intolerance and heat intolerance. Genitourinary: Positive for flank pain. Negative for decreased urine volume, difficulty urinating, discharge, dysuria, penile pain, penile swelling, scrotal swelling, testicular pain and urgency. Musculoskeletal: Negative for back pain and neck pain. Neurological: Negative for weakness and light-headedness. All other systems reviewed and are negative. Physical Exam Vitals signs and nursing note reviewed. Constitutional: General: He is not in acute distress. Appearance: He is well-developed. He is not diaphoretic. HENT: Head: Normocephalic and atraumatic. Right Ear: External ear normal. Left Ear: External ear normal. Eyes: General: No scleral icterus. Conjunctiva/sclera: Conjunctivae normal. Pupils: Pupils are equal, round, and reactive to light. Neck: Musculoskeletal: Normal range of motion. Trachea: No tracheal deviation. Cardiovascular: Rate and Rhythm: Normal rate and regular rhythm. Heart sounds: Normal heart sounds. No murmur. Pulmonary: Effort: Pulmonary effort is normal. No respiratory distress. Breath sounds: Normal breath sounds. No wheezing or rales. Abdominal: General: Abdomen is flat. Bowel sounds are normal. There is no distension. Palpations: Abdomen is soft. There is no hepatomegaly or splenomegaly. Tenderness: There is abdominal tenderness in the right upper quadrant. There is right CVA tenderness. There is no left CVA tenderness, guarding or rebound. Hernia: No hernia is present. Musculoskeletal: Normal range of motion. Arms: Skin: General: Skin is warm and dry. Neurological: Mental Status: He is alert and oriented to person, place, and time. Cranial Nerves: No cranial nerve deficit. Coordination: Coordination normal. Procedures Imaging Results CT RENAL STONE STUDY (ABDOMEN AND PELVIS W/O CONTRAST) (Final result) Result time 02/06/20 01:07:49 Final result by Ariel Canseco MD (02/06/20 01:07:49) Impression: IMPRESSION: 1. 0.5 cm right distal ureter obstructing stone with moderate to severe right hydroureteronephrosis. There is mild perinephric stranding versus trace fluid. 2. Subtle 1-2 mm radiopaque density at the left ureteropelvic junction suspicious for partially obstructing stone. Mild left hydro nephrosis. 3. Bilateral sub 6 mm non-obstructing renal stones as described above. Narrative: EXAM DESCRIPTION: CT RENAL STONE STUDY (ABDOMEN AND PELVIS W/O CONTRAST) REASON FOR STUDY: Flank pain, kidney stone suspected TECHNIQUE: CT scan of the abdomen and pelvis performed without intravenous and oral contrast using helical scanning technique. Reconstructed coronal and sagittal MPR images reviewed. All images stored on PACS. Automated exposure control was used as a dose optimization technique for this examination. COMPARISON: 05/16/2011 FINDINGS: The sensitivity for detection of visceral lesions is diminished without the use of intravenous contrast. LOWER CHEST: No significant pulmonary abnormalities. No effusion. Mild cardiomegaly. LIVER: Few low-attenuation lesions in the liver are seen. For reference, there is a 1.1 cm low-attenuation lesion in hepatic segment 2. Low-attenuation lesion in hepatic segment 4 measures 0.5 cm in too small to characterize by CT (image 40). These findings likely represent simple cyst statistically speaking. GALLBLADDER: Decompressed which may obscure tiny pathology. BILE DUCTS: No intrahepatic or extrahepatic ductal dilatation. SPLEEN: Normal size. No focal lesions. PANCREAS: No identified cystic or solid masses. No significant calcifications. No adjacent inflammation or peripancreatic fluid collections. Pancreatic duct not dilated. ADRENALS: Normal. KIDNEYS/URINARY TRACT: There is a 0.5 cm obstructing stone in the right distal ureter with moderate to severe right hydroureteronephrosis. Multiple nonobstructing stones throughout the right kidney are seen. The largest in the interpolar region right kidney measures 0.4 cm. Multiple nonobstructing stones throughout the left kidney are seen. The largest in the mid to lower pole left kidney measures 0.5 cm. There is mild left hydro nephrosis with a subtle 1-2 mm radiopaque density in the ureteropelvic junction (image 83). Findings are most consistent with a partially obstructing stone. Urinary bladder is mildly thick-walled and partially decompressed. Renal lesions are seen bilaterally compatible with simple cyst. Mild right perinephric stranding versus trace fluid is seen. GI: Colonic diverticulosis without evidence of acute diverticulitis. The appendix is normal. PERITONEUM: No ascites or free air. RETROPERITONEUM: No mass or adenopathy. REPRODUCTIVE: No significant abnormality. VASCULATURE: Ectasia of the proximal abdominal aorta. There is calcified atherosclerosis of the abdominal aorta and its branch vessels. MUSCULOSKELETAL: No significant abnormality. OTHER: No other abnormality. THIS IS AN ELECTRONICALLY VERIFIED FINAL REPORT 02/06/2020 1:04 AM - Electronically signed by Ariel Canseco BB: DEVIN Report ID: [id number] Reading Location: [address] Number of Diagnoses or Management Options Right Ureterolithiasis with severe hydroureteronephrosis: Amount and/or Complexity of Data Reviewed Clinical lab tests: ordered and reviewed Tests in the radiology section of CPT??: ordered and reviewed Tests in the medicine section of CPT??: ordered and reviewed Decide to obtain previous medical records or to obtain history from someone other than the patient:yes Review and summarize past medical records: yes Discuss the patient with other providers: yes Independent visualization of images, tracings, or specimens: yes Risk of Complications, Morbidity, and/or Mortality Presenting problems: moderate Diagnostic procedures: moderate Management options: moderate General comments: Differential diagnosis: Ureterolithiasis, urinary tract infection, diverticulitis, Critical Care Total time providing critical care: 30-74 minutes Patient Progress Patient progress: improved Reviewed: previous chart, nursing note and vitals Interpretation: labs, CT scan and ECG Total time providing critical care: 30-74 minutes. This excludes time spent performing separately reportable procedures and services. Consults: admitting MD and urology ECG Report Name: Samuel Sanchez Age: 74 y.o. Gender: male Time:0131 Rate: 55 Rhythm: NSR Other Findings: Normal rate, normal axis, normal EKG Clinical Impression 1. Right Ureterolithiasis with severe hydroureteronephrosis Patient presents with right flank pain. Workup reveals a 5 mm stone right distal ureter with severeright hydroureteronephrosis. He was given an injection of ketorolac and Compazine with good response to the pain. This is the patient's 8th stone. He has were apprehensive about trying to past this stones so he has elected to remain in the hospital. I consulted with Dr. Alba who will see the patient later this morning for surgery. At time of admission patient states pain was returning so he was given fentanyl 75 mcg IV. I spoke with Nita Jerez, mid-level hospitalist for Dr. Castaneda. Patient be placed in observation. * Steven Underwood RN - 02/05/2020 11:20 PM CDT Pt to ed room 9 with c/o right flank pain. States hx of kidney stones with this being number 8. States nausea without emesis. Denies any other sx. documented in this encounter Miscellaneous Notes * Anesthesia Post-op Eval - Nikki Sr APN, CRNA - 02/08/2020 2:10 PM CDT [facility] Anesthesia Assessment: Date of Procedure: 02/06/2020 Surgeon: Elizabeth Alba MD Surgical Procedure: Procedure(s): CYSTOSCOPY HOLMIUM LASER, RIGHT STENT INSERTION, BASKET STONE EXTRACTION, RIGHT URETEROSCOPY BP 135/64 Pulse 76 Temp 99.6 ??F (37.6 ??C) Resp 20 Ht 6' 1 (1.854 m) Wt 212 lb (96.2 kg) SpO2 100% BMI 27.97 kg/m?? Lab Results Component Value Date GLUCOSEPOCT 89 02/06/2020 Patient is sufficiently recovered from the acute administration of the anesthesia so as to participate in the evaluation: yes Respiratory function stable: yes Cardiovascular function stable: yes Mental status: oriented Temperature in safe range: yes Pain control adequate: yes Nausea and vomiting controlled: yes Postoperative hydration status adequate: yes Anesthetic complications: no COMMENTS: Vital signs stable no apparent anesthesia complications at this time. Patent airway. Nikki Sr APN, CRNA 02/11/2020 7:08 AM CDT * Interdisciplinary - Roxanne Diop RN - 02/08/2020 2:10 PM CDT Discharged to home, all belongings accounted for. * Plan of Care - Roxanne Diop RN - 02/08/2020 2:10 PM CDT Problem: Pain Acute Goal: Optimal Pain Control Outcome: Outcome Achieved * Interdisciplinary - Roxanne Diop RN - 02/08/2020 2:00 PM CDT Went over discharge orders with patient, questions asked and answered. * Plan of Care - Jessica Lackey RN - 02/08/2020 4:00 AM CDT Patient is alert and oriented times four. Up to the restroom independently.Medicaton given for complaints of severe headache. He has slept well this shift. Will continue to monitor. * Interdisciplinary - Neetu Linda RN - 02/07/2020 4:14 PM CDT I agree with all of Elan's charting. * Interdisciplinary - Elan Gavin RN - 02/07/2020 3:59 PM CDT Patient has had a headache most of the day. Patient stated that he thought it could be a sinus headache so Zyrtec was prescribed and administered. No relief was given. Patient tried tylenol, got no relief. Around 1300 patient was given 2 norco which have worked well in reducing his pain. Patient has been sitting in the chair. Patient has been calm and cooperative all day and understands his plan of care. * Himanshu - Elan Gavin RN - 02/07/2020 2:57 PM CDT Patient was moved to inpatient. Patient got himself cleaned up before switching rooms. Patient walked himself down the stuart with SBA. No complaints of pain or discomfort since being given norco. Willcontinue to monitor. * Plan of Care - Elan Gavin RN - 02/07/2020 12:08 PM CDT Problem: Pain Acute Goal: Optimal Pain Control Outcome: Ongoing (see interventions/notes) Note: Patient has been medicated for pain with PRN tylenol. Patient has been educated on non-pharmacological ways to reduce pain, rest and low stimuli, to help with the pain. * Himanshu - Elan Gavin RN - 02/07/2020 7:24 AM CDT Patient resting in bed. A&O x4. Patient complains of flank pain and a headache 09/10. Patients IV is currently infusing without difficulty. Will continue to monitor. * Interdisciplinary - Sara Longoria RN - 02/07/2020 3:21 AM CDT Patient alert and oriented x 4. Continues on IVF and ABX as ordered. Temp 99.9 last evening. Tylenol given for temp and headache. Resting between care. Voiding dark tea colored urine. Call hutton in reach. Continue to monitor, * Himanshu - Elan Gavin RN - 02/06/2020 4:11 PM CDT Checked back in on patient and he was resting in bed. He had stopped shaking for the time being. IVfluids currently infusing. Patient has been instructed on the call light and knows to use it if he needs anything. * Interdisciplinary - Neetu Linda RN - 02/06/2020 4:06 PM CDT I agree with all of elan's charting. * Interdisciplinary - Elan Gavin RN - 02/06/2020 3:45 PM CDT Patient brought back from OR. Patient has been shaking uncontrollably and complaining of pain in his kidney region. Patient is febrile with a 100.4 fever. I messaged Curtis to update him. Curtis said tylenol and observe. Tylenol has been given. Fluids were re-started in a new IV in the left AC.Patient was given an incentive spirometer and was instructed how to use it. Pt demonstrated correctuse of the incentive spirometer. Will continue to monitor. * Plan of Care - Tejal Edwards RN - 02/06/2020 12:25 PM CDT Criteria will be met before discharge from pacu * Plan of Care - Elan Gavin RN - 02/06/2020 12:19 PM CDT Problem: Adult Inpatient Plan of Care Goal: Plan of Care Review Outcome: Ongoing (see interventions/notes) Flowsheets Taken 02/06/2020 1217 by Elan Gavin RN Outcome Summary: Pt. medicated for pain per AUG. Pt been kept NPO since admission. Pt. taken down to OR for cytoscopy. Call light within reach. Patient educated production hand light. Taken 02/06/2020 0821 by Elan Gavin RN Plan of Care Reviewed With: patient Today's Goal: Keep pain at a comfortable level (2/10( Taken 02/06/2020 0446 by Ellen Fong RN Progress: no change Does the patient need assistance with discharge and/or transitioning to the next level of care?: No, no needs anticipated Goal: Absence of Hospital-Acquired Illness or Injury Outcome: Ongoing (see interventions/notes) Goal: Optimal Comfort and Wellbeing Outcome: Ongoing (see interventions/notes) Goal: Readiness for Transition of Care Outcome: Ongoing (see interventions/notes) Goal: Rounds/Family Conference Outcome: Ongoing (see interventions/notes) Goal: Plan of Care Review Outcome: Ongoing (see interventions/notes) Goal: Absence of Hospital-Acquired Illness or Injury Outcome: Ongoing (see interventions/notes) Goal: Optimal Comfort and Wellbeing Outcome: Ongoing (see interventions/notes) Goal: Readiness for Transition of Care Outcome: Ongoing (see interventions/notes) Problem: Pain Acute Goal: Optimal Pain Control Outcome: Ongoing (see interventions/notes) * Anesthesia Pre-op Eval - Nikki Sr APN, CRNA - 02/06/2020 12:18 PM CDT Patient is Scheduled for Procedure(s): CYSTOSCOPY WITH RIGHT STENT INSERTION on 02/06/2020 Anesthesia Evaluation Patient is scheduled for Procedure(s):CYSTOSCOPY WITH RIGHT STENT INSERTION on 02/06/2020 Patient summary reviewed and Nursing notes reviewed No history of anesthetic complications No family history of anesthesia reaction Airway Mallampati: III TM distance: >3 FB Neck ROM: full Dental - normal exam Pulmonary - normal exam breath sounds clear to auscultation (+) tobacco use ROS comment: larnyx ca in 2019-surgery x3 per pt Cardiovascular - negative ROS and normal exam Rhythm: regular Rate: normal Neuro/Psych (+) headaches, GI/Hepatic/Renal (+) GERD, Endo/Other - negative ROS Other findings: Npo>8hrs Risks, benefits, alternatives discussed with:patient. Anesthesia Plan ASA 2 - emergent general Plan discussed with surgeon. * Interdisciplinary - Elan Gavin RN - 02/06/2020 7:50 AM CDT Patient complains of pain 12/10. Patient is calm and cooperative. IV fluids infusing. [place] was given for pain. Will reassess pain per policy. Will continue to monitor. * Interdisciplinary - Ellen Fong RN - 02/06/2020 6:12 AM CDT Pt. Asleep resting in bed. Pt A&O:x4. No s/sx of distress noted. IVF infusing. Pt. C/o of mild-moderate pain, pt. Medicated per AUG. Call light is within reach. No alarms present. Urinal at bedside. Pt. Has agreed to use call light for assistance to the rest room. * Plan of Care - Ellen Fong RN - 02/06/2020 4:48 AM CDT Problem: Adult Inpatient Plan of Care Goal: Plan of Care Review Outcome: Ongoing (see interventions/notes) Flowsheets Taken 02/06/2020 0446 Progress: no change Outcome Summary: Pt. medicated for pain per MAR. Pt. NPO since admission. Medications reviewed withpt. Call light is within reach. Does the patient need assistance with discharge and/or transitioning to the next level of care?: No, no needs anticipated Taken 02/06/2020 0257 Plan of Care Reviewed With: patient Today's Goal: pain control Goal: Absence of Hospital-Acquired Illness or Injury Outcome: Ongoing (see interventions/notes) Goal: Optimal Comfort and Wellbeing Outcome: Ongoing (see interventions/notes) Goal: Readiness for Transition of Care Outcome: Ongoing (see interventions/notes) Goal: Rounds/Family Conference Outcome: Ongoing (see interventions/notes) Goal: Plan of Care Review Outcome: Ongoing (see interventions/notes) Goal: Absence of Hospital-Acquired Illness or Injury Outcome: Ongoing (see interventions/notes) Goal: Optimal Comfort and Wellbeing Outcome: Ongoing (see interventions/notes) Goal: Readiness for Transition of Care Outcome: Ongoing (see interventions/notes) Problem: Pain Acute Goal: Optimal Pain Control Outcome: Ongoing (see interventions/notes) * Interdisciplinary - Ellen Fong RN - 02/06/2020 3:00 AM CDT Pt. Awake and alert resting in bed. Pt. A&O:x4. No s/sx of distress noted. Assessment complete,see flowsheets. Call light is within reach. No alarms present. Pt. Oriented and education production hand light use. documented in this encounter Plan of Treatment Scheduled Orders Name Type Priority Associated Diagnoses Orde r Schedule CBC with Diff Lab Routine Right Ureterolithiasis with severe hydroureteronephrosis Gastroesophageal reflux disease without esophagitis Squamous cell carcinoma of larynx (HCC) Expected: 02/13/2020, Expires: 04/07/2020 BMP with Ca, Total Lab Routine Right Ureterolithiasis with severe hydroureteronephrosis Gastroesophageal reflux disease without esophagitis Squamous cell carcinoma of larynx (HCC) Expected: 02/13/2020, Expires: 04/07/2020 CBC with Diff Lab Routine Right Ureterolithiasis with severe hydroureteronephrosis Urinary tract obstruction by kidney stone Expected: 02/15/2020, Expires: 04/09/2020 BMP with Ca, Total Lab Routine Right Ureterolithiasis with severe hydroureteronephrosis Urinary tract obstruction by kidney stone Expected: 02/15/2020, Expires: 04/09/2020 documented as of this encounter Procedures Procedure Name Priority Date/Time Associated Diagnosis Comments URINALYSIS REFLEX IF INDICATED BY ABNORMAL RESULTS Routine 02/06/2020 5:52 PM CDT CULTURE, BLOOD Routine 02/06/2020 5:32 PM CDT CULTURE, BLOOD Routine 02/06/2020 5:28 PM CDT POCT GLUCOSE Routine 02/06/2020 3:06 PM CDT XR SURGICAL EXAM Routine 02/06/2020 12:5 5 PM CDT PATHOLOGY SURGICAL Routine 02/06/2020 12 :29 PM CDT CYSTOSCOPY HOLMIUM LASER 02/06/2020 11:37 AM CDT RIGHT URETERAL STONE CBC WITH AUTO DIFFERENTIAL Routine 02/06/2020 4:03 AM CDT COMPLETE BLOOD COUNT (CBC) WITH DIFF Routine 02/06/2020 4:03 AM CDT BASIC METABOLIC PANEL W/ CALCIUM TOTAL Routine 02/06/2020 4:03 AM CDT HC U0003 HIGH THROUGHPUT SARS-COV-2 COVID-19 AMP PRB Routine 02/06/2020 3:57 AM CDT EKG 12 LEAD STAT 02/06/2020 1:31 AM CDT URINALYSIS REFLEX IF INDICATED BY ABNORMAL RESULTS STAT 02/06/2020 1:18 AM CDT CULTURE, URINE STAT 02/06/2020 1:[address] RENAL STONE STUDY (ABDOMEN AND PELVIS W/O CONTRAST) STAT 02/05/2020 11:52 PM CDT CBC WITH AUTO DIFFERENTIAL STAT 02/05/2020 11:15 PM CDT CMP (COMPREHENSIVE METABOLIC PANEL) STAT 02/05/2020 11:15 PM CDT COMPLETE BLOOD COUNT (CBC) WITH DIFF STAT 02/05/2020 11:15 PM CDT documented in this encounter Results * US RENAL COMPLETE (02/12/2020 11:38 AM CDT) Anatomical Region Laterality Modality , Abdomen N/A Ultrasound 02/12/2020 3:34 PM CDT Impressions 02/12/2020 3:37 PM CDT IMPRESSION: ?? 1. ??Mild right pelviectasis. ??This is similar to the ultrasound from 02/16/2011, with improved hydronephrosis compared with CT dated 02/05/2020. ?? 2. ??Moderate left hydronephrosis. Narrative 02/12/2020 3:37 PM CDT EXAM DESCRIPTION: ?? US RENAL COMPLETE REASON FOR STUDY: ?? Calculus of ureter TECHNIQUE: ??Ultrasound of the kidneys and urinary bladder was performed with grayscale imaging. COMPARISON: ?? Renal ultrasound 02/16/2011. ??Correlation with CT abdomen and pelvis from 02/05/2020. FINDINGS: ??RIGHT KIDNEY: The right kidney measures ??13.1 cm in length. ??There is mild pelviectasis of the prior. ??There is normal cortical thickness and echogenicity. ??There is a simple 3.8 cm renal cyst. LEFT KIDNEY: The left kidney measures ??3.3 cm in length. ??There is moderate hydronephrosis. ??There is renal cortical thinning at the upper pole as on prior. URINARY BLADDER: ??The urinary bladder is poorly distended and grossly normal in appearance. ??The ureteral jets are not visualized. OTHER: ??No other additional findings. THIS IS AN ELECTRONICALLY VERIFIED FINAL REPORT 02/12/2020 3:34 PM - Electronically signed by Sulaiman Gar M.D. JR: D: ??02/12/2020 3:34 PM T: ??02/12/2020 3:34 PM Report ID: [id number] Reading Location: ??[id number] Procedure Note Sulaiman Gar MD - 02/12/2020 EXAM DESCRIPTION: US RENAL COMPLETE REASON FOR STUDY: Calculus of ureter TECHNIQUE: Ultrasound of the kidneys and urinary bladder was performed with grayscale imaging. COMPARISON: Renal ultrasound 02/16/2011. Correlation with CT abdomen and pelvis from 02/05/2020. FINDINGS: RIGHT KIDNEY: The right kidney measures 13.1 cm in length. There is mild pelviectasis of the prior. There is normal cortical thickness and echogenicity. There is a simple 3.8 cm renal cyst. LEFT KIDNEY: The left kidney measures 3.3 cm in length. There is moderate hydronephrosis. There is renal cortical thinning at the upper pole as on prior. URINARY BLADDER: The urinary bladder is poorly distended and grossly normal in appearance. The ureteral jets are not visualized. OTHER: No other additional findings. THIS IS AN ELECTRONICALLY VERIFIED FINAL REPORT 02/12/2020 3:34 PM - Electronically signed by Sulaiman Gar M.D. JR: Report ID: [id number] Reading Location: [place] [address] IMPRESSION: 1. Mild right pelviectasis. This is similar to the ultrasound from 02/16/2011, with improved hydronephrosis compared with CT dated 02/05/2020. 2. Moderate left hydronephrosis. Elizabeth Alba MD [facility] ORDERABLES Final Res ult * (ABNORMAL) URINALYSIS REFLEX IF INDICATED BY ABNORMAL RESULTS (02/06/2020 5:52 PM CDT) Only the most recent of2 resultswithin the time period is included. SPECIFIC GRAVITY 1.010 1.003 - 1.030 02/06/2020 6:23 PM CDT [facility] URINE PH 6.0 5.0 - 9.0 02/06/2020 6:23 PM CDT [facility] WBC ESTERASE 100 /uL(A) Negative 02/06/2020 6:23 PM CDT [facility] NITRITE Positive(A) Negative 02/06/2020 6:23 PM CDT [facility] PROTEIN, RANDOM URINE 100 mg/dL(A) Negative 02/06/2020 6:23 PM CDT [facility] URINE GLUCOSE, QUAL Negative Negative 02/06/2020 6:23 PM CDT [facility] URINE KETONES Negative Negative 02/06/2020 6:23 PM CDT [facility] UROBILINOGEN Normal Normal mg/dL 02/06/2020 6:23 PM CDT [facility] URINE BILIRUBIN Negative Negative 0 6:23 PM CDT [facility] URINE BLOOD 250 /uL(A) Negative vinod/ul 02/06/2020 6:23 PM CDT [facility] URINALYSIS COLOR Red Brown 02/06/2020 6:23 PM CDT [facility] URINALYSIS CLARITY Very Cloudy 02/06/2020 6:23 PM CDT [facility] WBC (Urine) 11-20(A) Negative, 0-5 /hpf 02/06/2020 6:23 PM CDT [facility] URINE RBC'S 51-150(A) Negative, 0-2 /hpf 02/06/2020 6:23 PM CDT [facility] EPITHELIAL CELLS Occasional /lpf 02/06/2020 6:23 PM CDT [facility] BACTERIA, URINE Many(A) Negative /hpf 02/06/2020 6:23 PM CDT [facility] Urine URINE SPECIMEN / Unknown Non-Phlebotomy Collection / Unknown 02/06/2020 5:52 PM CDT 02/06/2020 6:00 PM CDT Esa Castaneda MD URINE ORDERABLES Final R esult [facility] [address] [place] [address] * Culture, Blood (02/06/2020 5:32 PM CDT) Only the most recent of2 resultswithin the time period is included. CULTURE RESULTS NO GROWTH WITHIN 5 DAYS, FINAL RESULT 02/11/2020 6:00 PM CDT [facility] Culture BLOOD SPECIMEN / Unknown Venipuncture / Unknown 02/06/2020 5:32 PM CDT 02/06/2020 5:34 PM CDT Esa Castaneda MD MICROBIOLOGY - GENERAL O RDERABLES Final Result [facility] [address] [place] [address], [place] * POCT Glucose (02/06/2020 3:06 PM CDT) GLUCOSE,BEDSIDE POCT 89 70 - 99 mg/dL 02/06/2020 3:13 PM CDT [facility] Blood 02/06/2020 3:06 PM CDT 02/06/2020 3:13 PM CDT us Esa Castaneda MD POINT OF CARE TESTING Fi nal Result [facility] [address] [facility] [place] [address] * XR SURGICAL EXAM (02/06/2020 12:55 PM CDT) Anatomical Region Laterality Modality BODY N/A Radio Fluoroscop y 02/06/2020 2:57 PM CDT Impressions 02/06/2020 3:00 PM CDT IMPRESSION: ?? 1. ??Intraoperative fluoroscopic images showing a dilated right ureter with subsequent placement of a right ureteral stent. ??Please see operative report for further details. Narrative 02/06/2020 3:00 PM CDT EXAM DESCRIPTION: ?? XR SURGICAL EXAM HISTORY: ?? Cystoscopy with right-sided stent insertion. ?? COMPARISON: ?? CT abdomen and pelvis 02/05/2020 FLUOROSCOPY TIME/IMAGE COUNT: ??Fluoro Time: ??58.5 seconds Image Count: ??5 TECHNIQUE: ?? Intraoperative fluoroscopic images were obtained. FINDINGS: ?? Intraoperative fluoroscopic images show contrast within a dilated right ureter. ??Subsequent images show deployment of a double-J stent with the proximal portion at the right renal pelvis in the distal portion projecting over the bladder. THIS IS AN ELECTRONICALLY VERIFIED FINAL REPORT 02/06/2020 2:57 PM - Electronically signed by Jose Marrero M.D. LB: VANIA D: ??02/06/2020 2:57 PM T: ??02/06/2020 2:57 PM Report ID: [id number] Reading Location: ??[id number] Procedure Note Jose Marrero MD - 02/06/2020 EXAM DESCRIPTION: XR SURGICAL EXAM HISTORY: Cystoscopy with right-sided stent insertion. COMPARISON: CT abdomen and pelvis 02/05/2020 FLUOROSCOPY TIME/IMAGE COUNT: Fluoro Time: 58.5 seconds Image Count: 5 TECHNIQUE: Intraoperative fluoroscopic images were obtained. FINDINGS: Intraoperative fluoroscopic images show contrast within a dilated right ureter. Subsequent images show deployment of a double-J stent with the proximal portion at the right renal pelvis in the distal portion projecting over the bladder. THIS IS AN ELECTRONICALLY VERIFIED FINAL REPORT 02/06/2020 2:57 PM - Electronically signed by Jose Marrero M.D. LB: VANIA Report ID: [id number] Reading Location: [place] [address] IMPRESSION: 1. Intraoperative fluoroscopic images showing a dilated right ureter with subsequent placement of a right ureteral stent. Please see operative report for further details. Elizabeth Alba MD [facility] DIAGNOSTIC ORDERABLES F inal Result * Pathology Surgical (02/06/2020 12:29 PM CDT) Case Report Surgical Pathology Report ? Case: [id number] ? Authorizing Provider: ??Elizabeth Alba MD ? Collected: ? 02/06/2020 12:29 PM ? Ordering Location: ? [facility] ? Received: ?02/09/2020 09:03 AM ? [facility] ? Main OR ? Pathologist: ? Tila Manzanares, ? MD ? Specimen: ?Stone, RIGHT URETERAL STONE ? 02/09/2020 1:48 PM CDT [facility] FINAL DIAGNOSIS Calculus, Right Ureteral, Removal: - Nephrolithiasis (gross examination only). 02/09/2020 1:48 PM CDT [facility] Pre-Operative Diagnosis UNKNOWN 02/09/2020 1:48 PM CDT [facility] Gross Description A. RIGHT URETERAL STONE The specimen presents in a single saline container for gross examination only labeled with the patient's name, Samuel Sanchez, and right ureteral stone . The specimen consists of three dark brown to black calculi measuring from 0.2 cm up to 0.3 cm in greatest dimension. All submitted to a reference laboratory for crystallographic examination. KS/marc 02/09/2020 1:48 PM CDT [facility] Tissue STONE - BODY MATERIAL / Unknown 02/06/2020 12:29 PM CDT 02/09/2020 9:03 AM CDT Elizabeth Alba MD PATHOLOGY/CYTOLOGY ORDERABL ES Final Result [facility] [address] [place] [address] * (ABNORMAL) CBC with Auto Differential (02/06/2020 4:03 AM CDT) Only the most recent of2 resultswithin the time period is included. WBC 8.06 4.00 - 12.00 10(3)/mcL 02/06/2020 5:36 AM CDT [facility] RBC 4.56 4.40 - 5.80 10(6)/mcL 02/06/2020 5:36 AM CDT [facility] HEMOGLOBIN (HGB) 14.5 13.0 - 16.5 g/dL 02/06/2020 5:36 AM CDT [facility] HEMATOCRIT (HCT) 44.3 38.0 - 50.0 % 02/06/2020 5:36 AM CDT [facility] MCV 97.1(H) 82.0 - 96.0 fL 02/06/2020 5:36 AM CDT [facility] MCH 31.8 26.0 - 32.0 pg 02/06/2020 5:36 AM CDT [facility] MCHC 32.7 31.0 - 36.0 g/dL 02/06/2020 5:36 AM CDT [facility] PLATELET COUNT 145 140 - 440 10(3)/mcL 02/06/2020 5:36 AM CDT [facility] RDW 13.1 11.8 - 15.5 % 02/06/2020 5:36 AM CDT [facility] MPV 11.3 8.0 - 12.6 fL 02/06/2020 5:36 AM CDT [facility] NEUTROPHILS 70.8(H) 40.0 - 68.0 % 02/06/2020 5:36 AM CDT [facility] LYMPHOCYTES 15.3(L) 19.0 - 49.0 % 02/06/2020 5:36 AM CDT [facility] MONOCYTES 9.2 3.0 - 13.0 % 02/06/2020 5:36 AM CDT [facility] EOSINOPHILS 4.2 0.0 - 8.0 % 02/06/2020 5:36 AM CDT [facility] BASOPHILS 0.5 0.0 - 1.0 % 02/06/2020 5:36 AM CDT [facility] ABSOLUTE NEUTROPHILS 5.71(H) 1.40 - 5.30 10(3)/[facility] 02/06/2020 5:36 AM CDT [facility] ABSOLUTE LYMPHOCYTES 1.23 0.90 - 3.30 10(3)/[facility] 02/06/2020 5:36 AM CDT [facility] ABSOLUTE MONOCYTES 0.74 0.10 - 0.90 10(3)/[facility] 02/06/2020 5:36 AM CDT [facility] ABSOLUTE EOSINOPHIL 0.34 0.00 - 0.50 10(3)/[facility] 02/06/2020 5:36 AM CDT [facility] ABSOLUTE BASOPHILS 0.04 0.00 - 0.10 10(3)/[facility] 02/06/2020 5:36 AM CDT [facility] NRBC PER 100 WBC 0 02/06/20 20 5:36 AM CDT [facility] Blood Venipuncture / Unknown 02/06/2020 4:03 AM CDT 02/06/2020 5:28 AM CDT us Nita Jerez HEEL [employer]UCER, APARTMENT LEASING [employer]ENT HEMATOLOGY ORDERABLES F inal Result [facility] [address] [place] [address] * (ABNORMAL) BMP with Ca, Total (02/06/2020 4:03 AM CDT) SODIUM 141 136 - 144 mmol/L 02/06/2020 5:59 AM CDT [facility] POTASSIUM 3.9 3.5 - 5.1 mmol/L 02/06/2020 5:59 AM CDT [facility] CHLORIDE 105 100 - 110 mmol/L 02/06/2020 5:59 AM CDT [facility] CO2, VENOUS 26 22 - 32 mmol/L 02/06/2020 5:59 AM CDT [facility] ANION GAP 13.9 8.0 - 20.0 mmol/L 02/06/2020 5:59 AM CDT [facility] GLUCOSE 73 70 - 99 mg/dL 02/06/2020 5:59 AM CDT [facility] BUN 25(H) 8 - 23 mg/dL 02/06/2020 5:59 AM CDT [facility] CREATININE, BLOOD 1.13 0.80 - 1.30 mg/dL 02/06/2020 5:59 AM CDT [facility] BUN/CREATININE RATIO 22(H) 12 - 20 ratio 02/06/2020 5:59 AM CDT [facility] CALCIUM 9.0 8.9 - 10.3 mg/dL 02/06/2020 5:59 AM CDT [facility] GFR, EST. NONAFRICAN >60 >=60 02/06/2020 5:59 AM CDT [facility] GFR, EST. >60 >=60 02/06/2020 5:59 AM CDT [facility] Comment: Creatinine Clearance is the preferred criteria for selecting drug dose adjustments in renally impaired patients. ??The GFR is provided as additional pertinent clinical information. GFR is reported in mL/min/1.73 sq m. Blood Venipuncture / Unknown 02/06/2020 4:03 AM CDT 02/06/2020 5:28 AM CDT us Nita Jerez APRN, APARTMENT LEASING AGENT CHEMISTRY ORDERABLES Fi nal Result [facility] [place] [address] * Pre-Procedural COVID-19 PCR Screening (02/06/2020 3:57 AM CDT) SARSCOV2 NOT DETECTED (Reference Range for this test is Not Detected) 02/07/2020 7:08 AM CDT [facility] Swab NASOPHARYNGEAL STRUCTURE / Unknown Non-Phlebotomy Collection / Unknown 02/06/2020 3:57 AM CDT 02/06/2020 4:07 AM CDT Narrative [facility] - 02/07/2020 7:08 AM CDT Authorized Fact Sheets about this test for providers and patients are available at: https://www.fda.gov/medical-devices/grgzuhlpn-mdyjxuzlgb-bpwxupe-devices/emergen -us e-authorizations us Nita Jerez APRN, APARTMENT LEASING AGENT MICROBIOLOGY - GENERAL ORDERABLES Final Result [facility] [address] [place] [address], * EKG 12 LEAD (02/06/2020 1:31 AM CDT) Ventricular Rate BPM EXTERNAL EKG Atrial Rate BPM EXTERNAL EKG P-R Interval 204 ms EXTERNAL EKG QRS Duration 80 ms EXTERNAL EKG Q-T Duration 444 ms EXTERNAL EKG QTC CALCULATION 425 ms EXTERNAL EKG P Rew 18 degrees EXTERNAL EKG R Rew -2 degrees EXTERNAL EKG T Rew 51 degrees EXTERNAL EKG 02/06/2020 1:31 AM CDT Impressions EXTERNAL EKG - 02/07/2020 6:57 AM CDT Sinus rhythm with borderline 1st degree A-V block Comparison Summary: No serial comparison made Summary: Borderline ECG [place] [id number] on 02/07/2020 6:57:21 AM Narrative Procedure Note Ezequiel Feliz, DO - 02/07/2020 IMPRESSION: Sinus rhythm with borderline 1st degree A-V block Comparison Summary: No serial comparison made Summary: Borderline [place] [id number] on 02/07/2020 6:57:21 AM Azeem Chavez MD IMG ECG ORDERABLES Final Result Performing Organization Address [facility] Co de Phone Number EXTERNAL EKG * Culture, Urine (02/06/2020 1:18 AM CDT) CULTURE RESULTS ENTEROCOCCUS 02/09/2020 8:01 AM CDT [facility] CULTURE RESULTS ENTEROCOCCUS 02/09/2020 8:01 AM CDT [facility] Comment:STRAIN 2 CULTURE RESULTS ALSO MIXED GROWTH OF DISTAL URETHRA CONTAMINANTS. 02/09/2020 8:01 AM CDT [facility] Urine URINE SPECIMEN / Unknown Non-Phlebotomy Collection / Unknown 02/06/2020 1:18 AM CDT 02/06/2020 1:30 AM CDT Narrative [facility] - 02/09/2020 8:01 AM CDT Susceptibility not performed on enterococcus species. ??Due to high achievable concentrations in urine, Ampicillin is the drug of choice for treating infections limited to the lower urinary tract (regardless of Vancomycin susceptibility). ??For allergic patients, Nitrofurantoin or a quinolone may be substituted. ??For epidemiological purposes only, a Vancomycin screen will be performed and reported if positive. Azeem Chavez MD MICROBIOLOGY - GENERAL OR DERABLES Final Result Performing Organization Address [facility] Co de Phone Number [facility] [address] [place] [address], [place] * CT RENAL STONE STUDY (ABDOMEN AND PELVIS W/O CONTRAST) (02/05/2020 11:52 PM CDT) Anatomical Region Laterality Modality Abdomen N/A Computed Tomogra phy 02/06/2020 1:04 AM CDT Impressions 02/06/2020 1:07 AM CDT IMPRESSION: ?? 1. ??0.5 cm right distal ureter obstructing stone with moderate to severe right hydroureteronephrosis. ??There is mild perinephric stranding versus trace fluid. 2. ??Subtle 1-2 mm radiopaque density at the left ureteropelvic junction suspicious for partially obstructing stone. ??Mild left hydro nephrosis. 3. ??Bilateral sub 6 mm non-obstructing renal stones as described above. Narrative 02/06/2020 1:07 AM CDT EXAM DESCRIPTION: ?? CT RENAL STONE STUDY (ABDOMEN AND PELVIS W/O CONTRAST) REASON FOR STUDY: ?? Flank pain, kidney stone suspected TECHNIQUE: ??CT scan of the abdomen and pelvis performed without intravenous and ?? oral contrast using helical scanning technique. Reconstructed coronal and sagittal MPR images reviewed. All images stored on PACS. ??Automated exposure control was used as a dose optimization technique for this examination. COMPARISON: ?? 05/16/2011 FINDINGS: ??The sensitivity for detection of visceral lesions is diminished without the use of intravenous contrast. LOWER CHEST: ??No significant pulmonary abnormalities. No effusion. ?? Mild cardiomegaly. LIVER: Few low-attenuation lesions in the liver are seen. ??For reference, there is a 1.1 cm low-attenuation lesion in hepatic segment 2. ??Low-attenuation lesion in hepatic segment 4 measures 0.5 cm in too small to characterize by CT (image 40). ??These findings likely represent simple cyst statistically speaking. GALLBLADDER: ??Decompressed which may obscure tiny pathology. BILE DUCTS: ??No intrahepatic or extrahepatic ductal dilatation. SPLEEN: ??Normal size. ??No focal lesions. PANCREAS: ??No identified cystic or solid masses. ??No significant calcifications. No adjacent inflammation or peripancreatic fluid collections. Pancreatic duct not dilated. ADRENALS: ??Normal. KIDNEYS/URINARY TRACT: ??There is a 0.5 cm obstructing stone in the right distal ureter with moderate to severe right hydroureteronephrosis. ??Multiple nonobstructing stones throughout the right kidney are seen. ??The largest in the interpolar region right kidney measures 0.4 cm. ??Multiple nonobstructing stones throughout the left kidney are seen. ??The largest in the mid to lower pole left kidney measures 0.5 cm. ??There is mild left hydro nephrosis with a subtle 1-2 mm radiopaque density in the ureteropelvic junction (image 83). ??Findings are most consistent with a partially obstructing stone. ??Urinary bladder is mildly thick-walled and partially decompressed. ??Renal lesions are seen bilaterally compatible with simple cyst. ??Mild right perinephric stranding versus trace fluid is seen. GI: ??Colonic diverticulosis without evidence of acute diverticulitis. ??The appendix is normal. PERITONEUM: ??No ascites or free air. RETROPERITONEUM: ??No mass or adenopathy. REPRODUCTIVE: ??No significant abnormality. VASCULATURE: ??Ectasia of the proximal abdominal aorta. ??There is calcified atherosclerosis of the abdominal aorta and its branch vessels. MUSCULOSKELETAL: ??No significant abnormality. OTHER: ??No other abnormality. THIS IS AN ELECTRONICALLY VERIFIED FINAL REPORT 02/06/2020 1:04 AM - Electronically signed by Ariel Canseco BB: DEVIN D: ??02/06/2020 1:04 AM T: ??02/06/2020 1:04 AM Report ID: [id number] Reading Location: ??[id number] Procedure Note Ariel Canseco MD - 02/06/2020 EXAM DESCRIPTION: CT RENAL STONE STUDY (ABDOMEN AND PELVIS W/O CONTRAST) REASON FOR STUDY: Flank pain, kidney stone suspected TECHNIQUE: CT scan of the abdomen and pelvis performed without intravenous and oral contrast using helical scanning technique. Reconstructed coronal and sagittal MPR images reviewed. All images stored on PACS. Automated exposure control was used as a dose optimization technique for this examination. COMPARISON: 05/16/2011 FINDINGS: The sensitivity for detection of visceral lesions is diminished without the use of intravenous contrast. LOWER CHEST: No significant pulmonary abnormalities. No effusion. Mild cardiomegaly. LIVER: Few low-attenuation lesions in the liver are seen. For reference, there is a 1.1 cm low-attenuation lesion in hepatic segment 2. Low-attenuation lesion in hepatic segment 4 measures 0.5 cm in too small to characterize by CT (image 40). These findings likely represent simple cyst statistically speaking. GALLBLADDER: Decompressed which may obscure tiny pathology. BILE DUCTS: No intrahepatic or extrahepatic ductal dilatation. SPLEEN: Normal size. No focal lesions. PANCREAS: No identified cystic or solid masses. No significant calcifications. No adjacent inflammation or peripancreatic fluid collections. Pancreatic duct not dilated. ADRENALS: Normal. KIDNEYS/URINARY TRACT: There is a 0.5 cm obstructing stone in the right distal ureter with moderate to severe right hydroureteronephrosis. Multiple nonobstructing stones throughout the right kidney are seen. The largest in the interpolar region right kidney measures 0.4 cm. Multiple nonobstructing stones throughout the left kidney are seen. The largest in the mid to lower pole left kidney measures 0.5 cm. There is mild left hydro nephrosis with a subtle 1-2 mm radiopaque density in the ureteropelvic junction (image 83). Findings are most consistent with a partially obstructing stone. Urinary bladder is mildly thick-walled and partially decompressed. Renal lesions are seen bilaterally compatible with simple cyst. Mild right perinephric stranding versus trace fluid is seen. GI: Colonic diverticulosis without evidence of acute diverticulitis. The appendix is normal. PERITONEUM: No ascites or free air. RETROPERITONEUM: No mass or adenopathy. REPRODUCTIVE: No significant abnormality. VASCULATURE: Ectasia of the proximal abdominal aorta. There is calcified atherosclerosis of the abdominal aorta and its branch vessels. MUSCULOSKELETAL: No significant abnormality. OTHER: No other abnormality. THIS IS AN ELECTRONICALLY VERIFIED FINAL REPORT 02/06/2020 1:04 AM - Electronically signed by Ariel Canseco BB: DEVIN Report ID: [id number] Reading Location: [place] [address] IMPRESSION: 1. 0.5 cm right distal ureter obstructing stone with moderate to severe right hydroureteronephrosis. There is mild perinephric stranding versus trace fluid. 2. Subtle 1-2 mm radiopaque density at the left ureteropelvic junction suspicious for partially obstructing stone. Mild left hydro nephrosis. 3. Bilateral sub 6 mm non-obstructing renal stones as described above. us Azeem Chavez MD IMG CT ORDERABLES Final R esult * (ABNORMAL) CMP (Comprehensive Metabolic Panel) (02/05/2020 11:15 PM CDT) SODIUM 141 136 - 144 mmol/L 02/06/2020 12:11 AM CDT [facility] POTASSIUM 3.5 3.5 - 5.1 mmol/L 02/06/2020 12:11 AM [facility] CHLORIDE 104 100 - 110 mmol/L 02/06/2020 12:11 AM [facility] CO2, VENOUS 27 22 - 32 mmol/L 02/06/2020 12:11 AM [facility] ANION GAP 13.5 8.0 - 20.0 mmol/L 02/06/2020 12:11 AM [facility] GLUCOSE 137(H) 70 - 99 mg/dL 02/06/2020 12:11 AM [facility] BUN 24(H) 8 - 23 mg/dL 02/06/2020 12:11 AM [facility] CREATININE, BLOOD 1.24 0.80 - 1.30 mg/dL 02/06/2020 12:11 AM [facility] BUN/CREATININE RATIO 19 12 - 20 ratio 02/06/2020 12:11 AM [facility] TOTAL PROTEIN 6.6 6.0 - 8.3 g/dL 02/06/2020 12:11 AM [facility] ALBUMIN 4.2 3.5 - 5.2 g/dL 02/06/2020 12:11 AM [facility] Comment: The colormetric methods used for the determination of Albumin may lead to falsely elevated test results in patients suffering from renal failure or insufficiency due to interference with other proteins. A/G RATIO 1.8 1.0 - 2.0 02/06/2020 12:11 AM [facility] CALCIUM 9.4 8.9 - 10.3 mg/dL 02/06/2020 12:11 AM [facility] T BILI 0.4 <=1.2 mg/dL 02/06/2020 12:11 AM [facility] SGOT (AST) 14 <=40 U/L 02/06/2020 12:11 AM [facility] SGPT (ALT) 13 <=41 U/L 02/06/2020 12:11 AM [facility] ALKALINE PHOSPHATASE 65 40 - 130 U/L 02/06/2020 12:11 AM CDT [facility] GFR, EST. NONAFRICAN 57(L) >=60 02/06/2020 12:11 AM CDT [facility] GFR, EST. >60 >=60 020 12:11 AM CDT [facility] Comment: Creatinine Clearance is the preferred criteria for selecting drug dose adjustments in renally impaired patients. ??The GFR is provided as additional pertinent clinical information. GFR is reported in mL/min/1.73 sq m. 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 neoplasm of larynx, unspecified site Acute cystitis with hematuria Acute cystitis Urinary tract obstruction by kidney stone Calculus of kidney GERD (gastroesophageal reflux disease) Esophageal reflux Squamous cell carcinoma of larynx (HCC) Malignant neoplasm of larynx, unspecified site Migraine Migraine, unspecified, without mention of intractable migraine without mention of status migrainosus Ureterolithiasis Calculus of ureter Right Ureterolithiasis with severe hydroureteronephrosis Calculus of ureter documented in this encounter Admitting Diagnoses Diagnosis Ureterolithiasis Calculus of ureter documented in this encounter Administered Medications Inactive Administered Medications - up to 3 most recent administrations Medication Order MAR Action Action Date Dose Rate Site 0.9 % sodium chloride solution at 1,000 mL/hr, Intravenous, ONCE, 1 dose, On 02/06/20 at 0000 New Bag 02/06/2020 12:16 AM CDT 1,000 mL 1000 mL/hr 0.9 % sodium chloride solution at 100 mL/hr, Intravenous, CONTINUOUS, Starting on 02/06/20 at 0300, Until Sat02/08/20 at 1610 New Bag 02/08/2020 4:35 AM CDT 100 mL/hr New Bag 02/07/2020 6:18 PM CDT 100 mL/hr New Bag 02/07/2020 4:25 AM CDT 100 mL/hr acetaminophen (TYLENOL) suppository 650 mg 650 mg, Rectal, EVERY 4 HOURS PRN, Starting on 02/06/20 at 0219, Until Sat02/08/20 at 1610, Mild pain or more severe pain if patient requests, Fever, If patient is taking oral intake without complications and both PO/DE orders are active, administer through the oral route. acetaminophen (TYLENOL) tablet 650 mg 650 mg, Oral, EVERY 4 HOURS PRN, Starting on 02/06/20 at 0219, Until Sat02/08/20 at 1610, Mild pain or more severe pain if patient requests, Fever, If patient is taking oral intake without complications and both PO/DE orders are active, administer through the oral route. Given 02/07/2020 6:18 PM CDT 650 mg Given 02/07/2020 12:02 AM CDT 650 mg Given 02/06/2020 3:30 PM CDT 650 mg amoxicillin-clavulanate (AUGMENTIN) 875-125 MG per tablet 1 Tab 1 Tablet, Oral, 2 TIMES DAILY, First dose on Sat02/08/20 at 0930, Until Discontinued, If unable to swallow, may crush., Indications: Urinary Tract InfectionIndications:Urinary Tract Infection Given 02/08/2020 9:55 AM CDT 1 Tablet cefTRIAXone (ROCEPHIN) injection 1 g 1 g, Intravenous, EVERY 24 HOURS, First dose on 02/06/20 at 1730, Until Discontinued, Indications: CystitisIndications:Cystitis Given 02/07/2020 4:45 PM CDT 1 g Given 02/06/2020 5:39 PM CDT 1 g cetirizine (ZyrTEC) tablet 10 mg 10 mg, Oral, DAILY, First dose on 02/07/20 at 1000, Until Discontinued Given 02/08/2020 8:23 AM CDT 10 mg Given 02/07/2020 9:40 AM CDT 10 mg enoxaparin (LOVENOX) injection 40 mg 40 mg, Subcutaneous, EVERY 24 HOURS SCHEDULED, First dose on 02/06/20 at 0900, Until Discontinued, Upon new order verification, pharmacy to adjust enoxaparin dose for creatinine clearance less than 30 mL/minIndications:Prophylaxis of Venous Thromboembolism Given 02/08/2020 8:23 AM CDT 40 mg Left Abdomen Given 02/07/2020 8:02 AM CDT 40 mg Le ft Abdomen Given 02/06/2020 8:18 AM CDT 40 mg Le ft Abdomen fentaNYL (PF) (SUBLIMAZE) injection 75 mcg 75 mcg, Intravenous, ONCE, 1 dose, On 02/06/20 at 0200 Given 02/06/2020 1:54 AM CDT 75 mcg HYDROcodone-acetaminophen (NORCO) 5-325 MG per tablet 1-2 Tab 1-2 Tablet, Oral, EVERY 4 HOURS PRN, Starting on 02/06/20 at 0219, Until 02/08/20 at 1610, Moderate pain or more severe pain if patient requests, Maximum dose of acetaminophen is 4000 mg from all sources in 24 hours.If pain not effectively managed, then contact provider to discuss possibly 1) adding scheduled opioid dosing or non-opioid pain treatments, 2) increasing dosage, or 3) changing to [employer]. Given 02/08/2020 9:51 AM CDT 2 Tablets Given 02/07/2020 9:41 PM CDT 2 Tablets Given 02/07/2020 5:21 PM CDT 1 Tablet ketorolac (TORADOL) injection 15 mg 15 mg, Intravenous, EVERY 6 HOURS PRN, Starting on 02/06/20 at 0318, Until 02/08/20 at 0317, Moderate pain or more severe pain if patient requests Given 02/07/2020 4:32 AM CDT 15 mg Given 02/06/2020 10:43 AM CDT 15 mg ketorolac (TORADOL) injection 30 mg 30 mg, Intravenous, ONCE, 1 dose, On 02/06/20 at 0030 Given 02/06/2020 12:16 AM CDT 30 mg levoFLOXacin (LEVAQUIN) IV 750 mg 750 mg, Intravenous, ONCE, 1 dose, On 02/06/20 at 0200, Administer over 90 Minutes, Indications: Urinary Tract Infection, at 100 mL/hrIndications:Urinary Tract Infection New Bag 02/06/2020 1:57 AM CDT 750 mg 100 mL/hr multiple vitami/antioxidants (CERTAVITE/ANTIOXIDANTS) tablet TABS 1 Tab 1 Tablet, Oral, DAILY, First dose on 02/06/20 at 0900, Until Discontinued Given 02/08/2020 8:23 AM CDT 1 Tablet Given 02/07/2020 8:02 AM CDT 1 Tablet Given 02/06/2020 8:18 AM CDT 1 Tablet ondansetron (ZOFRAN) injection 4 mg 4 mg, Intravenous, EVERY 12 HOURS PRN, Starting on 02/06/20 at 0219, Until 02/08/20 at 1610, Nausea - 1st line, 1. First Line Antiemetic. 2. Use Injection only if patient unable to tolerate oral medications. ondansetron (ZOFRAN-ODT) disintegrating tablet 4 mg 4 mg, Oral, EVERY 12 HOURS PRN, Starting on 02/06/20 at 0219, Until 02/08/20 at 1610, Nausea - 1st line, 1. First Line Antiemetic. 2. Use PO form unless unable to tolerate PO medications, then use Injection pantoprazole (PROTONIX) tablet 20 mg 20 mg, Oral, DAILY, First dose on 02/06/20 at 0900, Until Discontinued, Indications: Stress Ulcer ProphylaxisIndications:Stress Ulcer Prophylaxis Given 02/08/2020 8:23 AM CDT 20 mg Given 02/07/2020 8:02 AM CDT 20 mg Given 02/06/2020 8:18 AM CDT 20 mg Prochlorperazine Edisylate (COMPAZINE) injection 10 mg 10 mg, Intravenous, EVERY 6 HOURS PRN, Starting on 02/06/20 at 0013, Until 02/08/20 at 1610, Nausea - 1st line Given 02/06/2020 12:16 AM CDT 10 mg tamsulosin (FLOMAX) capsule 0.4 mg 0.4 mg, Oral, DAILY, First dose on 02/06/20 at 0900, Until Discontinued, Tamsulosin capsules may be opened and the contents administered to a patient in a small quantity of acidic fruit juice (e.g. orange, grape) or acidic soft food (e.g. applesauce, yogurt). The granules within the capsule should NOT be crushed. Administration through a nasogastric, gastric, or jejunostomy tube is possible, however, doing so may cause the granules to adhere to the sides of the tube, making administration difficult and increasing the risk of the tube clogging. Given 02/08/2020 8:23 AM CDT 0.4 mg Given 02/07/2020 8:02 AM CDT 0.4 mg Given 02/06/2020 8:18 AM CDT 0.4 mg documented in this encounter Active and Recently Administered Medications Times are shown in CDT. Scheduled Medication Order 02/06/2020 02/07/2020 02/08/2020 0.9 % sodium chloride solution (COMPLETED) at 1,000 mL/hr, Intravenous, ONCE, 1 dose, On 02/06/20 at 0000 0016 (New Bag - Provider: Caryn Montano, GAY)0100 (Stopped - Provider: Caryn Montano, GAY) amoxicillin-clavulanate (AUGMENTIN) 875-125 MG per tablet 1 Tab 1 Tablet, Oral, 2 TIMES DAILY, First dose on 02/08/20 at 0930, Until Discontinued, If unable to swallow, may crush., Indications: Urinary Tract Infection 0955 (Given - Provider: Roxanne Diop RN) cefTRIAXone (ROCEPHIN) injection 1 g (CANCELED) 1 g, Intravenous, EVERY 24 HOURS, First dose on 02/06/20 at 1730, Until Discontinued, Indications: Cystitis 1739 (Given - Provider: Elan Gavin RN) 1645 (Given - Provider: Elan Gavin RN) cetirizine (ZyrTEC) tablet 10 mg 10 mg, Oral, DAILY, First dose on 02/07/20 at 1000, Until Discontinued 0940 (Given - Provider: Elan Gavin RN) 0823 (Given - Provider: Roxanne Diop, GAY) enoxaparin (LOVENOX) injection 40 mg 40 mg, Subcutaneous, EVERY 24 HOURS SCHEDULED, First dose on 02/06/20 at 0900, Until Discontinued, Upon new order verification, pharmacy to adjust enoxaparin dose for creatinine clearance less than 30 mL/min 0818 (Given - Provider: Elan Gavin RN) 08 (Given - Provider: Elan Gavin RN) 0823 (Given - Provider: Roxanne Diop RN) fentaNYL (PF) (SUBLIMAZE) injection 75 mcg (COMPLETED) 75 mcg, Intravenous, ONCE, 1 dose, On 02/06/20 at 0200 0154 (Given - Provider: Caryn Montano RN) Iopamidol 61 % SOLN 30 mL (COMPLETED) 30 mL, Other, ONCE, 1 dose, On 02/06/20 at 1230, INTRA-OP 1230 (Canceled Entry - Provider: Elan Gavin RN)1233 (Given - Provider: Elizabeth Alba MD) ketorolac (TORADOL) injection 30 mg (COMPLETED) 30 mg, Intravenous, ONCE, 1 dose, On 02/06/20 at 0030 0016 (Given - Provider: Caryn Montaon RN) levoFLOXacin (LEVAQUIN) IV 750 mg (COMPLETED) 750 mg, Intravenous, ONCE, 1 dose, On 02/06/20 at 0200, Administer over 90 Minutes, Indications: Urinary Tract Infection, at 100 mL/hr 0157 (New Bag - Provider: Caryn Montano RN)0205 (Infusing on Transfer - Provider: Caryn Montano RN)0327 (Stopped - Provider: Ellen Fong RN) multiple vitami/antioxidants (CERTAVITE/ANTIOXIDANTS) tablet TABS 1 Tab 1 Tablet, Oral, DAILY, First dose on 02/06/20 at 0900, Until Discontinued 0818 (Given - Provider: Elan Gavin RN) 0802 (Given - Provider: Elan Gavin RN) 0823 (Given - Provider: Roxanne Diop RN) pantoprazole (PROTONIX) tablet 20 mg 20 mg, Oral, DAILY, First dose on 02/06/20 at 0900, Until Discontinued, Indications: Stress Ulcer Prophylaxis 0818 (Given - Provider: Elan Gavin RN) 0802 (Given - Provider: Elan Gavin RN) 0823 (Given - Provider: Roxanne Diop RN) tamsulosin (FLOMAX) capsule 0.4 mg 0.4 mg, Oral, DAILY, First dose on 02/06/20 at 0900, Until Discontinued, Tamsulosin capsules may be opened and the contents administered to a patient in a small quantity of acidic fruit juice (e.g. orange, grape) or acidic soft food (e.g. applesauce, yogurt). The granules within the capsule should NOT be crushed. Administration through a nasogastric, gastric, or jejunostomy tube is possible, however, doing so may cause the granules to adhere to the sides of the tube, making administration difficult and increasing the risk of the tube clogging. 0818 (Given - Provider: Elan Gavin RN) 0802 (Given - Provider: Elna Gavin RN) 0823 (Given - Provider: Roxanne Diop, GAY) Continuous Medication Order 02/06/2020 02/07/2020 02/08/2020 0.9 % sodium chloride solution at 100 mL/hr, Intravenous, CONTINUOUS, Starting on 02/06/20 at 0300, Until 02/08/20 at 1610 0309 (New Bag - Provider: Ellen Fong RN)1443 (Stopped - Provider: Elan Gavin RN)1542 (Restarted - Provider: Elan Gavin RN)1745 (New Bag - Provider: Elan Gavin RN) 0425 (New Bag - Provider: Sara Longoria RN)1818 (New Bag - Provider: Elan Gavin RN) 0435 (New Bag - Provider: Jessica Lackey, GAY)0800 (Stopped - Provider: Roxanne Diop RN) PRN Medication Order 02/06/2020 02/07/2020 02/08/2020 acetaminophen (TYLENOL) suppository 650 mg(Linked Group 1) 650 mg, Rectal, EVERY 4 HOURS PRN, Starting on 02/06/20 at 0219, Until 02/08/20 at 1610, Mild pain or more severe pain if patient requests, Fever, If patient is taking oral intake without complications and both PO/DE orders are active, administer through the oral route. 1530 (See Alternative - Provider: Elan Gavin RN) 0002 (See Alternative - Provider: Sara Longoria RN)1818 (See Alternative - Provider: Elan Gavin RN) acetaminophen (TYLENOL) tablet 650 mg(Linked Group 1) 650 mg, Oral, EVERY 4 HOURS PRN, Starting on 02/06/20 at 0219, Until 02/08/20 at 1610, Mild pain or more severe pain if patient requests, Fever, If patient is taking oral intake without complications and both PO/DE orders are active, administer through the oral route. 1530 (Given - Provider: Elan Gavin RN - Comment: For temp of 100.4, shaking per doctor curtis.) 0002 (Given - Provider: Sara Longoria, GAY)1818 (Given - Provider: Elan Gavin RN) HYDROcodone-acetaminophe n (NORCO) 5-325 MG per tablet 1-2 Tab 1-2 Tablet, Oral, EVERY 4 HOURS PRN, Starting on 02/06/20 at 0219, Until 02/08/20 at 1610, Moderate pain or more severe pain if patient requests, Maximum dose of acetaminophen is 4000 mg from all sources in 24 hours.If pain not effectively managed, then contact provider to discuss possibly 1) adding scheduled opioid dosing or non-opioid pain treatments, 2) increasing dosage, or 3) changing to STRUCTURAL SHOP HELPER. 0259 (Given - Provider: Ellen Fong RN)0749 (Given - Provider: Elan Gavin RN) 1324 (Given - Provider: Neetu Linda RN)1721 (Given - Provider: Elan Gavin RN)2141 (Given - Provider: Jessica Lackey, GAY) 0951 (Given - Provider: Roxanne Diop, GAY) ketorolac (TORADOL) injection 15 mg 15 mg, Intravenous, EVERY 6 HOURS PRN, Starting on 02/06/20 at 0318, Until 02/08/20 at 0317, Moderate pain or more severe pain if patient requests 1043 (Given - Provider: Elan Gavin RN) 0432 (Given - Provider: Sara Longoria, GAY) morphine preservative free injection 2 mg 2 mg, Intravenous, EVERY 2 HOURS PRN, Starting on 02/06/20 at 0219, Until 02/08/20 at 0218, Severe pain ondansetron (ZOFRAN) injection 4 mg(Linked Group 2) 4 mg, Intravenous, EVERY 12 HOURS PRN, Starting on 02/06/20 at 0219, Until 02/08/20 at 1610, Nausea - 1st line, 1. First Line Antiemetic. 2. Use Injection only if patient unable to tolerate oral medications. ondansetron (ZOFRAN-ODT) disintegrating tablet 4 mg(Linked Group 2) 4 mg, Oral, EVERY 12 HOURS PRN, Starting on 02/06/20 at 0219, Until Sat02/08/20 at 1610, Nausea - 1st line, 1. First Line Antiemetic. 2. Use PO form unless unable to tolerate PO medications, then use Injection Prochlorperazine Edisylate (COMPAZINE) injection 10 mg 10 mg, Intravenous, EVERY 6 HOURS PRN, Starting on 02/06/20 at 0013, Until Sat02/08/20 at 1610, Nausea - 1st line 0016 (Given - Provider: Caryn Montano RN) Linked Groups Order Group 1: acetaminophen (TYLENOL) tablet 650 mgJump to med 650 mg, Oral, EVERY 4 HOURS PRN, Starting on 02/06/20 at 0219, Until Sat02/08/20 at 1610, Mild pain or more severe pain if patient requests, Fever, If patient is taking oral intake without complications and both PO/DE orders are active, administer through the oral route. Or acetaminophen (TYLENOL) suppository 650 mgJump to med 650 mg, Rectal, EVERY 4 HOURS PRN, Starting on 02/06/20 at 0219, Until Sat02/08/20 at 1610, Mild pain or more severe pain if patient requests, Fever, If patient is taking oral intake without complications and both PO/DE orders are active, administer through the oral route. Group 2: ondansetron (ZOFRAN-ODT) disintegrating tablet 4 mgJump to med 4 mg, Oral, EVERY 12 HOURS PRN, Starting on 02/06/20 at 0219, Until Sat02/08/20 at 1610, Nausea - 1st line, 1. First Line Antiemetic. 2. Use PO form unless unable to tolerate PO medications, then use Injection Or ondansetron (ZOFRAN) injection 4 mgJump to med 4 mg, Intravenous, EVERY 12 HOURS PRN, Starting on 02/06/20 at 0219, Until Sat02/08/20 at 1610, Nausea - 1st line, 1. First Line Antiemetic. 2. Use Injection only if patient unable to tolerate oral medications. documented in this encounter Care Teams Ob Scrub Tech Relationship Specialty Start Date End Date Fawn Romeo, [facility] [address] [place] [address] PCP - General Physician Mixing And Dispensing Supervisor 11/20/17 10/24/23 documented as of this encounter
--- OUTSIDE RECORDS SUMMARY | 2024-06-14 16:44 | XMS_ITS | Encounter Summary ---
Author Organization [facility] Address [address] [place] [address] Care Team Providers Care Recruiter Manager Name Role Phone Unavailable Primary Care Provider Unavailabl e Reason for Visit * Reason Onset Date Comments Refill Request 10/25/2011 Encounter Details Date Type Department Care Team (Late st Contact Info) Description 10/25/2011 Telephone [facility] [address] [place] [address] [place] [address] [facility] [address] [place] [address] Refill Request Social History Tobacco Use Types Packs/Day Years Used Date Smoking Tobacco: Never Assessed Sex and Gender Information Value Date Recorded Sex Assigned at Male 08/22/2021 3:52 PM CDT Gender Identity Male 08/22/2021 3:52 PM CDT Sexual Orientation Not on file documented as of this encounter Miscellaneous Notes * Telephone Encounter - Jodi Lan - 10/26/2011 8:56 AM CDT Patient informed of Dr. Ledesma's response, script escribe. * Telephone Encounter - Lui Ledesma MD - 10/25/2011 5:06 PM CDT OK, may stop and start Elavil 12.5mg QHS. thx * Telephone Encounter - Jodi Lan - 10/25/2011 4:22 PM CDT Patient informed of Dr. Ledesma's response. Mr. Sanchez stated that he has tried stopping the Topamax in the past. Mr. Sanchez went about 3 weeks without the medication, but the headaches returned.Since his last visit he has started seeing a new urologist who feels differently about the Topamax and its possible correlation to kidney stones. * Telephone Encounter - Lui Ledesma MD - 10/25/2011 2:16 PM CDT At our last visit he said the urologist did not think it was TPM related, however if he needs to get off it, I would just stop it and see if the headaches significantly return before starting something else. He may not need it anymore and this may be the chance to find out. * Telephone Encounter - Jodi Lan - 10/25/2011 11:42 AM CDT Patient called and stated his urologist told him he has kidney stones. His urologist wanted him to ask you if there is something else you would prescribe in place of the Topamax 25 mg, one daily. will be available all day today and until noon tomorrow. documented in this encounter Plan of Treatment Not on file documented as of this encounter Visit Diagnoses Not on filedocumented in this encounter
--- OUTSIDE RECORDS SUMMARY | 2024-06-14 16:44 | XMS_ITS | Encounter Summary ---
Author Organization [facility] Address [address] [facility] [place] [address] Care Team Providers Care Legal Recruiter Name Role Phone Unavailable Primary Care Provider Unavailabl e Reason for Visit * Reason Comments Follow-up Reflux Encounter Details Date Type Department Care Team (Late st Contact Info) Description 05/04/2020 9:30 AM PATIENT SCHEDULING MANAGER Video Visit [facility] [address] [place] [address] Zelda Batista, THAO-ASSISTANT CHIEF ENGINEER [address] [place] [address] Pena's esophagus without dysplasia ; Generalized abdominal pain; Abnormal weight loss; Adenomatous polyp of colon, unspecified part of colon Social History Tobacco Use Types Packs/Day Years [...] have Coronavirus / COVID-19? No / Unsure 04/04/2020 8:21 AM PATIENT SCHEDULING MANAGER documented as of this encounter Progress Notes * Zelda Batista APRN-ALICIA - 05/04/2020 9:30 AM CST Telemedicine Note Today's visit was conducted virtually due to COVID-19 countermeasures. The patient has given verbalconsent to have today's visit conducted by this same means with treatment provided remotely. The patient verbally consents to the billing and collection practices of [facility]. 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 Initial telemedicine visit 03/2020 Abnormal weight loss Patient reports that he has lost about 30 lb over the last 6-8 months. He reports he has been eating slightly less than normal, but does not feel he has decreased his intake enough to account for this degree of weight loss. He reports his appetite is good. He denies any symptoms of early satiety. He reports that his is sick, so he has been dealing with a lot of increased stress recently. He had a CT scan of the abdomen and pelvis without contrast February 05 that demonstrated a few low attenuation lesions in the liver, likely representing a simple cyst. Colonic diverticulosis without evidence of acute diverticulitis was noted. Otherwise this was unremarkable. He has no prior upper endoscopy. Last colonoscopy was in 2011 and notable for internal hemorrhoids. Abdominal pain Patient reports for the last 3-4 weeks he has been experiencing mid abdominal pain. This is typically triggered by eating. The pain can last for several hours and through the night. He is on able to describe the quality of the pain. He denies any radiation of the pain to the right or left. The paindoes not radiate to his back. He denies any nausea or vomiting with this pain. He has a long history of acid reflux. Currently is taking Nexium 20 mg q.day and Pepcid 40 mg q.h.s.. He reports occasional breakthrough symptoms, but does not feel like he needs to make any changes to his reflux regimenat this time. He denies any dysphagia. Change in bowel pattern Patient reports over the last several months he has noticed a change in his bowel pattern. He typically goes once in the morning and is formed. More recently he has noticed episodes of diarrhea. Thisis typically exacerbated by eating. He experiences a sense of urgency, but denies any accidents. Hedenies any lower abdominal pain. He denies any melena or hematochezia. His last colonoscopy was in 2011 did demonstrate internal hemorrhoids, was otherwise normal. He is unsure of his family history as he is adopted. Interim events 03/16/2020- EGD- notable for 3 cm hiatal hernia, Esophageal bx- pathology-c/w pena's esophagus, negative for dysplasia erythematous mucosa in gastric body-bx negative for h pylori, path-mild vascular congestion -His nexium was switched from nexium 20mg q day to omeprazole 40mg BID and pepcid 40mg q hs 03/16/2020- Colonoscopy- notable for adenomatous polyps 03/30/20- CT abdomen and pelvis w/ contrast was unremarkable Today in follow up The patient reports he has been compliant with taking his omeprazole 40 mg b.i.d. and his Pepcid 40mg q.h.s. the patient is concerned about being on the high dose of PPI. He denies any breakthrough symptoms of heartburn or acid reflux. He denies any nausea or vomiting. He reports his appetite is very good and he has started to gain weight. He is up to 208 lb. His prior complaints of abdominal pain have almost completely resolved. He only rarely has abdominal discomfort when he over eats. His bowel movements have been more regular. He is having 1 formed bowel movement daily. 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 He is schedule to undergo laryngoscopy with ablation. ROS: Gen: No weight loss, fevers, chills, or sweats. Normal appetite. Skin: No rashes ENMT: No yellowing of eyes or skin. CVS: No chest pain or palpitations. Respiratory: No cough,No Sputum, No hemoptysis, No SOB, No GUALLPA GI: See HPI Musculoskeletal : No swelling or pain. Neuro: No confussion or drowsiness. Psych: No depression, anxiety, or SI. Exrem: No edema All other systems negative unless otherwise stated. Medical History: I have reviewed the patient's medical history in detail and updated the computerized patient record. Patient Active Problem List: Migraine Abnormal weight loss Change in bowel function Past Medical History: Diagnosis Date ??? Enlarged prostate ??? GERD (gastroesophageal reflux disease) ??? Kidney stones Past Surgical History: Procedure Laterality Date ??? BICEPS TENODESIS, SHOULDER Left ??? COLONOSCOPY 03/14/2020 COLONOSCOPY SCREEN ??? ENDOSCOPY, UPPER 03/14/2020 ESOPHAGOGASTRODUODENOSCOPY (EGD) DIAGNOSTIC ??? Orchiectomy testicle removed ??? Rotator Cuff Repair Right ??? Vasectomy Allergies: Allergies Allergen Reactions ??? Hydrocodone Itching ??? Vicodin [Hydrocodone-Acetaminophen] Itching Current meds: Updated [facility] chart, and personally reviewed by me Social History: Social History Socioeconomic History ??? Marital status: Unknown Spouse name: Not on file ??? Number [...] on file Tobacco Use ??? Smoking status: Never Smoker ??? Smokeless tobacco: Never Used Substance and Sexual Activity ??? Alcohol use: Yes ??? Drug use: Never ??? Sexual activity: Not on file Lifestyle ??? Physical activity Days per week: Not on file Minutes per session: Not on file ??? Stress: Not on file Relationships ??? Social connections Talks on phone: Not on file Gets together: Not on file Attends adventist service: Not on file Active member of [...] Social History Narrative ??? Not on file Former smoker. He quit smoking 25 years prior. He drinks alcohol socially. Family Hx: Family Hx of GI Malignancy: None Family Hx of Liver Disease: None Physical Exam: N/a Assessment and Plan Samuel is a 74 year old male with past medical history of squamous cell carcinoma of the larynx (s/p laser treatment) who calls today for follow up of Pena's esophagus, abnormal weight loss, abdominal pain, and colon polyps 1. Abnormal weight loss CT of the abdomen and pelvis with contrast was unremarkable. EGD and colonoscopy negative for etiology of weight loss. There is no etiology of the patient's weight loss noted on the CT. The patient is going through increased stress taking care of his sick . Weight loss has resolved. He is now gaining weight. His appetite is normal. He will continue to monitor his weight and notify the office if his weight does not remain stable 3. GERD complicated by Pena's esophagus Recent EGD esophageal bx were c/w Pena's esophagus w/o dysplasia Currently taking omeprazole 40mg BID and pepcid 20mg q hs. He is very concerned about taking a highdose of PPI He will decrease his omeprazole to 40mg PO q day and continue pepcid 40mg q hs He will notify the office if symptoms worsen on lower dose of PPI He is due for surveillance EGD in 3 years 4. Abdominal pain Symptoms resolved on higher dose of PPI 5. CRC, hx of adenomatous polyps He is due for his surveillance colonoscopy 03/2021 6. 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 He is schedule to undergo laryngoscopy with ablation RTC in 4-6 months or PRN The plan was reviewed with the patient and the patient confirmed understanding of the plan and all follow-up steps. All aspects of patient's medical history were reviewed and updated as documented in [facility] ERINN Ponce ENT SCHEDULING MANAGER documented in this encounter Plan of Treatment Not on file documented as of this encounter Visit Diagnoses Diagnosis Pena's esophagus without dysplasia- Primary Pena's esophagus Generalized abdominal pain Abdominal pain, generalized Abnormal weight loss Loss of weight Adenomatous polyp of colon, unspecified part of colon documented in this encounter
--- OUTSIDE RECORDS SUMMARY | 2024-06-14 16:44 | XMS_ITS | Encounter Summary ---
Author Organization [facility] Address [address] [place] [address] Care Team Providers Care Direct Mail Marketer Name Role Phone Unavailable Primary Care Provider Unavailabl e Reason for Visit * Reason Onset Date Comments Follow-up 03/22/2020 Encounter Details Date Type Department Care Team (Late st Contact Info) Description 03/22/2020 Telephone [facility] [employer] [address] [address] Adilson Cutler PA-C Dept of Neurological Surgery [address] [place] [address] Follow-up Social History Tobacco Use Types Packs/Day Years [...] encounter Miscellaneous Notes * Telephone Encounter - Adilson Cutler PA-C - 03/22/2020 1:22 PM CDT Called patient to go over MRI scan, MRI shows mostly degenerative and arthritic changes throughout the lumbar spine. There is no high-grade stenosis, no cord compression, no nerve compression. Patient seems to be benefiting from physical therapy. Will have him continue physical therapy for now, will call him and a muscle relaxer. He will call us with any changes or concerns. Adilson Cutler PA-C documented in this encounter Plan of Treatment Not on file documented as of this encounter Visit Diagnoses Not on filedocumented in this encounter
--- OUTSIDE RECORDS SUMMARY | 2024-06-14 16:44 | XMS_ITS | Encounter Summary ---
Author Organization [facility] Address [address] [place] [address] Care Team Providers Care Manager Managing Name Role Phone Unavailable Primary Care Provider Unavailabl e Reason for Visit * Reason Onset Date Comments Question 05/15/2013 Encounter Details Date Type Department Care Team (Late st Contact Info) Description 05/15/2013 Telephone [facility]sciences [address] [place], [place] [id number] [place] [address] [place] [address] Question Social History Tobacco Use [...] * Telephone Encounter - Nallely Navas - 05/15/2013 9:35 AM CST Pt called stating that the [employer] never received the office note to release back to work. I informed pt that it was faxed by Eloina and myself. I read ref number and fax number back to patient. He asked if I could fax again. I refaxed x 5 to [phone] [place] [id number]. done TEGIC ACCOUNT DIRECTOR documented in this encounter Plan of Treatment Not on file documented as of this encounter Visit Diagnoses Not on filedocumented in this encounter
--- OUTSIDE RECORDS SUMMARY | 2024-06-14 16:44 | XMS_ITS | Clinical Summary ---
Author Organization [facility] Address [address] [place] [address] Phone Care Team Providers Care Life Tester [employer] Name Role Phone Grey Tomas MD Primary Care Provider [phone] Allergies No known active allergies Medications methotrexate 2.5 MG Tablet Take 6 Tabs by mouth once a week 0 Active tamsulosin (FLOMAX) 0.4 MG Capsule Take 0.4 mg by mouth daily. 0 Active esomeprazole (NexIUM) 20 MG CAPSULE DELAYED RELEASE Take 20 mg by mouth daily. Active Biotin 5 MG TABLET DISPERSIBLE Take 5,000 mcg by mouth daily. Active Multiple Vitamin (multi-vitamins) Tablet Take 1 Tab by mouth daily. Active Multiple Vitamins-Mineral s (ICAPS AREDS 2 PO) Take 2 Tabs by mouth 2 times daily. Active ondansetron (ZOFRAN-ODT) 4 MG TABLET DISPERSIBLE Take 1 Tab by mouth every 12 hours as needed for Nausea - 1st line. 10 Tab 0 Active HYDROcodone-acet aminophen (NORCO) 5-325 MG Tablet Take 1-2 Tabs by mouth every 4 hours as needed for Moderate or more severe pain. 15 Tab 0 Active oxybutynin (DITROPAN) 5 MG Tablet Take 1 Tab by mouth 2 times daily. 30 Tab 0 Active Active Problems Problem Noted Date Diagnosed Date Urinary tract obstruction by kidney stone 2019 GERD (gastroesophageal reflux disease) 0 Squamous cell carcinoma of larynx 02/06/2020 Migraine 02/06/2020 Ureterolithiasis 02/06/2020 Social History Tobacco Use Types Packs/Day Years Used Date Smoking Tobacco: Former Cigarettes 2 30 1 966 - 1996 Smokeless Tobacco: Never Tobacco Cessation:Counseling Given: No Alcohol Use Standard Drinks/Week Comments Yes 0 (1 standard drink = 0.6 oz pur e alcohol) occasionally Sex and Gender Information Value Date Recorded Sex Assigned at Not on file Legal Sex Male 7:42 PM CDT Gender Identity Not on file Sexual Orientation Not on file Last Filed Vital Signs Vital Sign Reading Time Taken Comments Blood Pressure 129/87 10/25/2023 4:45 PM CDT Pulse 88 10/25/2023 4:45 PM CDT Temperature 36.4 ??C (97.5 ??F) 10/25/2023 1:10 PM CD T Respiratory Rate 16 10/25/2023 1:10 PM CDT Oxygen Saturation 97% 10/25/2023 4:45 PM CDT Inhaled Oxygen Concentration - - Weight 97.5 kg (215 lb) 10/25/2023 1:10 PM CDT Height 182.9 cm (6') 10/25/2023 1:10 PM CDT Body Mass Index 29.16 10/25/2023 1:10 PM CDT Plan of Treatment Health Maintenance Due Date Last Done Comments Hepatitis C Virus (HCV) Screening 1945 Zoster Immunization (1 of 2) 05/30/2016 04/04/2016 Respiratory Syncytial Virus (RSV) Immunization (Adult) (1 - 1-dose 75+ series) 2018 Influenza Immunization (#1) 02/02/202405/03, 08/29/2022, 04/26/2022, Additional history exists SARS-COV-2 Immunization ( season) 2024 05/14/2023, 08/29/2022, 11/14/2021, Additional history exists DTaP/Tdap/Td Immunization Discontinued 06/30/2019 TdaP Immunization Completed 06/30/2019 Pneumococcal Immunization (50+ years) Completed 08/29/2022, 04/19/2022, 03/17/2018, Additional history exists Pneumococcal Immunization Combined Discontinued 08/29/2022, 04/19/2022, 03/17/2018, Additional history exists Hepatitis B Immunization Aged Out No longer eligible based on patient's age to complete this topic Meningococcal Immunization (ACWY) Aged Out No longer eligible based on patient's age to complete this topic Rotavirus Immunization Aged Out No lo nger eligible based on patient's age to complete this topic Medical Devices Implanted Type Area Attending Anesthesiologist Device Identifier Shelf Expiration Date Model / Serial / Lot Stent Ureteral 6fr 2.1fr 26cm 2 Pigtail Curve 2 Durometer Taper Tip Loprfl Graduated [employer]loois Ultra - [id number] Implanted:Qty : 1 on 02/06/2020 by Elizabeth Alba MD at [facility] IMPLANT Right: Ureter [employer] 07/16/2022 [id number] / [id number] / [id number] Insurance MEDICARE C [facility] Member Subscriber Plan / Payer (Ef fective 2022-Present) Name:Samuel Sanchez Relation to Subscriber:Self Name:Samuel Sanchez Payer ID:[id number] (NAIC) Type:Not on file Address: [facility] [address] [place] [id number] Advance Directives * Full Code (Latest Code Status on File) Date Activated Date Inactivated Comments 02/06/2020 2:19 AM 02/08/2020 4:15 PM CPR-Full Treat ment: FULL ARREST: Attempt Resuscitation/CPR wit intubation and mechanical ventilation. PRE-ARREST: Use entire range of life support measures to stabilize the patient. Care Teams Life Tester [employer] Relationship Specialty Start Date End Date Grey Tomas MD [address] [place] [id number] PCP - General Family Medicine 10/25/23
--- OUTSIDE RECORDS SUMMARY | 2024-06-14 16:44 | XMS_ITS | Encounter Summary ---
Author Organization [facility] Address [address] [facility] [address] [place] [address] Care Team Providers Care Carton Forming Machine Operator Name Role Phone Unavailable Primary Care Provider Unavailabl e Encounter Details Date Type Department Care Team (Latest Contact Info) Description 03/10/2020 Travel Social History Tobacco Use Types Packs/Day [...] have Coronavirus / COVID-19? No / Unsure 03/10/2020 11:44 AM CDT documented as of this encounter Plan of Treatment Not on file documented as of this encounter Visit Diagnoses Not on filedocumented in this encounter
--- OUTSIDE RECORDS SUMMARY | 2024-06-14 16:44 | XMS_ITS | Encounter Summary ---
Author Organization [facility] Address [address] [place] [address] Phone Care Team Providers Care Wastewater Treatment Supervisor Name Role Phone Grey Tmoas MD Primary Care Provider [phone] Reason for Visit * Reason Comments General Illness Encounter Details Date Type Department Care Team ([facility] st Contact Info) Description 10/25/2023 2:25 PM CDT - 10/25/2023 4:50 PM CDT Emergency [facility] Emergency [address] [place] [address] Grey Guerra, DO [address] [place] [address] Acute bronchitis Discharge Disposition: Discharged to home or Selfcare [...] Mass Index 29.16 10/25/2023 1:10 PM CDT documented in this encounter Discharge Instructions * Discharge Instructions* Grey Guerra DO - 10/25/2023 4:38 PM CDT Follow up with your doctor within 24hrs Take Medications as prescribed. Return to ER immediately at anytime if symptoms worsen/ persists, chest pain, shortness of breath, lightheadedness, loss of consciousness, numbness/weakness/tingling in your arms or legs. If patient is using abdominal or rib muscles to breathe or breathing faster than normal. Return if fevers greater than 101, continuous vomiting, inability to drink fluids or tolerate solids by mouth, dehydration, lethargy, if patient not acting normally or any other concerns you may have. Please followup with your primary care doctor or the physician you have been given here in the emergency department prior to any travel. [facility]!!! GO BL[facility] !!! GO [facility]!!! documented in this encounter Medications at Time [...] Take 0.4 mg by mouth daily. 12/16/2019 levoFLOXacin (Levaquin) 500 MG Tablet Take 1 Tablet by mouth daily for 7 days. 7 Tablet 10/25/2023 4 documented as of this encounter ED Notes * Mela Mary RN - 10/25/2023 4:49 PM CDT Patient discharged. Discharge instructions and patient educational material reviewed with patient; questions and concerns addressed; patient verbalizes understanding, using teach back. Patient was given 1 prescription. Patient discharged per ambulatory mode with self as responsible alliance party. * Mela Mary RN - 10/25/2023 4:45 PM CDT Pt medicated per provider orders. Pt educated on intended effects and side effects of medication and verbalized understanding, able to provide teach back of education. * Mela Mary RN - 10/25/2023 4:35 PM CDT Provider at bedside to review discharge instructions with pt. * Mela Mary RN - 10/25/2023 4:00 PM CDT Patient is resting in room with call light at bedside. Patient informed about wait time and verbalizes understanding. Patient denies needs at this time and verbalizes understanding that RN will complete hourly rounding. * Mela Mary RN - 10/25/2023 3:21 PM CDT Provider at bedside to evaluate pt. Pt verbalizes understanding that he will be going to xray. Calllight within reach. * EusebioGrey arredondo, DO - 10/25/2023 3:18 PM CDT Chief Complaint Patient presents with General Illness 78-year-old male complains of cough, intermittent, no alleviating factors, seen in urgent care yesterday an x-ray and a COVID swab which was negative. He denies any recent travel or sick contacts or recent illness. Denies any fevers/vomiting/diarrhea. Review of systems negative otherwise. No current facility-administered medications for this encounter. Current Outpatient Medications Medication Sig Dispense Refill Biotin 5 MG TABLET DISPERSIBLE Take 5,000 mcg by mouth daily. esomeprazole (NexIUM) 20 MG CAPSULE DELAYED RELEASE Take 20 mg by mouth daily. HYDROcodone-acetaminophen (NORCO) 5-325 MG Tablet Take 1-2 Tabs by mouth every 4 hours as needed for Moderate or more severe pain. 15 Tab 0 methotrexate 2.5 MG Tablet Take 6 Tabs by mouth once a week Multiple Vitamin (multi-vitamins) Tablet Take 1 Tab by mouth daily. Multiple Vitamins-Minerals (ICAPS AREDS 2 PO) Take 2 Tabs by mouth 2 times daily. ondansetron (ZOFRAN-ODT) 4 MG TABLET DISPERSIBLE Take 1 Tab by mouth every 12 hours as needed for Nausea - 1st line. 10 Tab 0 oxybutynin (DITROPAN) 5 MG Tablet Take 1 Tab by mouth 2 times daily. 30 Tab 0 tamsulosin (FLOMAX) 0.4 MG Capsule Take 0.4 mg by mouth daily. No Known Allergies Past Medical History Positives Diagnosis Date GERD (gastroesophageal reflux disease) Migraine Squamous cell carcinoma of larynx (HCC) Past Surgical History: Procedure Laterality Date BICEPS TENODESIS Left 1969 BLADDER SURGERY Right 02/06/2020 Procedure: CYSTOSCOPY HOLMIUM LASER, RIGHT STENT INSERTION, BASKET STONE EXTRACTION, RIGHT URETEROSCOPY; Surgeon: Elizabeth Alba MD; Location: [facility]; Service: Urology LARYNGOSCOPY 02/2019 PROSTATE SURGERY 1970 ROTATOR CUFF REPAIR Right 1970 TESTICLE REMOVAL 1969 VASECTOMY 1969 Social History Socioeconomic History Marital status: Spouse name: Not on file Number of children: Not on file Years of education: Not on file Highest education level: Not on file Occupational History Not on file Tobacco Use Smoking status: Former Packs/day: 2.00 Years: 30.00 Additional pack years: 0.00 Total pack years: 60.00 Types: Cigarettes Quit date: 1995 Years since quittin.4 Smokeless tobacco: Never Substance and Sexual Activity Alcohol use: Yes Comment: occasionally Drug use: Yes Types: Marijuana Sexual activity: Not on file Other Topics Concern Not on file Social History Narrative Not on file Social Determinants of Health Financial Resource Needs: Not on file Food Insecurity Needs: Not on file Transportation Needs: Not on file Physical Activity: Not on file Stress: Not on file Social Integration: Not on file Intimate Partner Violence: Not on file Housing Stability: Not on file BP (!) 136/91 Pulse 109 Temp 97.5 ??F (36.4 ??C) (Tympanic) Resp 16 Ht 6' (1.829 m) Wt 215 lb (97.5 kg) SpO2 98% BMI 29.16 kg/m?? Review of Systems Physical Exam Vitals and nursing note reviewed. Constitutional: General: He is not in acute distress. Appearance: He is well-developed. He is not diaphoretic. HENT: Head: Normocephalic and atraumatic. Right Ear: External ear normal. Left Ear: External ear normal. Nose: Nose normal. Mouth/Throat: Mouth: Mucous membranes are moist. Pharynx: No oropharyngeal exudate. Eyes: General: Right eye: No discharge. Left eye: No discharge. Conjunctiva/sclera: Conjunctivae normal. Pupils: Pupils are equal, round, and reactive to light. Neck: Thyroid: No thyromegaly. Vascular: No JVD. Trachea: No tracheal deviation. Cardiovascular: Rate and Rhythm: Normal rate and regular rhythm. Heart sounds: Normal heart sounds. No murmur heard. Pulmonary: Effort: Pulmonary effort is normal. No respiratory distress. Breath sounds: Rales (bilateral bases) present. No wheezing. Chest: Chest wall: No tenderness. Abdominal: General: Bowel sounds are normal. There is no distension. Palpations: Abdomen is soft. There is no mass. Tenderness: There is no abdominal tenderness. There is no guarding or rebound. Musculoskeletal: General: No tenderness. Normal range of motion. Cervical back: Normal range of motion and neck supple. Lymphadenopathy: Cervical: No cervical adenopathy. Skin: General: Skin is warm and dry. Capillary Refill: Capillary refill takes less than 2 seconds. Coloration: Skin is not pale. Findings: No erythema or rash. Neurological: Mental Status: He is alert and oriented to person, place, and time. Cranial Nerves: No cranial nerve deficit. Motor: No abnormal muscle tone. Coordination: Coordination normal. Deep Tendon Reflexes: Reflexes are normal and symmetric. Psychiatric: Behavior: Behavior normal. Thought Content: Thought content normal. Procedures Recent Results (from the past 24 hour(s)) RSV,SARS-COV-2,INFLUENZA A&B BY PCR Specimen: Nasopharyngeal; Swab Result Value Ref Range FLU A Negative Negative, Error FLU B Negative Negative RESP SYNC VIRUS Negative Negative SARSCOV2 NOT DETECTED (Reference Range for this test is Not Detected) Imaging Results XR CHEST 2 VIEWS (No Result on File) 4:38 PM CDT Re-eval: Patient feeling better, no new issues, wants to go home, he is comfortable with discharge and follow up with primary care doctor. All questions have been answered to the patient and any friends/family present currently present. Home prescription meds consideration: Medication List START taking these medications levoFLOXacin 500 MG Tabs Commonly known as: Levaquin Take 1 Tablet by mouth daily for 7 days. ASK your doctor about these medications Biotin 5 MG Tab-disperse esomeprazole 20 MG Cap-del-rel Commonly known as: NexIUM HYDROcodone-acetaminophen 5-325 MG Tabs Commonly known as: NORCO Take 1-2 Tabs by mouth every 4 hours as needed for Moderate or more severe pain. ICAPS AREDS 2 PO methotrexate 2.5 MG Tabs multi-vitamins Tabs ondansetron 4 MG Tab-disperse Commonly known as: ZOFRAN-ODT Take 1 Tab by mouth every 12 hours as needed for Nausea - 1st line. oxybutynin 5 MG Tabs Commonly known as: DITROPAN Take 1 Tab by mouth 2 times daily. tamsulosin 0.4 MG Caps Commonly known as: FLOMAX Where to Get Your Medications These medications were sent to [id number] - [place], [place] - [address] [facility] [address] [place] [id number] Hours: 24-hours levoFLOXacin 500 MG Tabs Medical Decision Making 78-year-old with recent cough, x-ray unremarkable, will cover with Levaquin for sinusitis/bronchitis. No diagnosis found. Disposition: No Disposition Selected Disposition: Discharge home Condition:Stable CLINICAL IMPRESSION: 1. Acute bronchitis 2. Acute sinusitis Current Outpatient Medications Medication Instructions Biotin 5,000 mcg, Oral, DAILY esomeprazole (NEXIUM) 20 mg, Oral, DAILY HYDROcodone-acetaminophen (NORCO) 5-325 MG Tablet 1-2 Tablets, Oral, EVERY 4 HOURS PRN levoFLOXacin (LEVAQUIN) 500 mg, Oral, DAILY methotrexate 2.5 MG Tablet 6 Tablets, Oral, WEEKLY Multiple Vitamin (multi-vitamins) Tablet 1 Tablet, Oral, DAILY Multiple Vitamins-Minerals (ICAPS AREDS 2 PO) 2 Tablets, Oral, 2 TIMES DAILY ondansetron (ZOFRAN-ODT) 4 mg, Oral, EVERY 12 HOURS PRN oxybutynin (DITROPAN) 5 mg, Oral, 2 TIMES DAILY tamsulosin (FLOMAX) 0.4 mg, Oral, DAILY No current facility-administered medications on file prior to encounter. Current Outpatient Medications on File Prior to Encounter Medication Sig Dispense Refill Biotin 5 MG TABLET DISPERSIBLE Take 5,000 mcg by mouth daily. esomeprazole (NexIUM) 20 MG CAPSULE DELAYED RELEASE Take 20 mg by mouth daily. HYDROcodone-acetaminophen (NORCO) 5-325 MG Tablet Take 1-2 Tabs by mouth every 4 hours as needed for Moderate or more severe pain. 15 Tab 0 methotrexate 2.5 MG Tablet Take 6 Tabs by mouth once a week Multiple Vitamin (multi-vitamins) Tablet Take 1 Tab by mouth daily. Multiple Vitamins-Minerals (ICAPS AREDS 2 PO) Take 2 Tabs by mouth 2 times daily. ondansetron (ZOFRAN-ODT) 4 MG TABLET DISPERSIBLE Take 1 Tab by mouth every 12 hours as needed for Nausea - 1st line. 10 Tab 0 oxybutynin (DITROPAN) 5 MG Tablet Take 1 Tab by mouth 2 times daily. 30 Tab 0 tamsulosin (FLOMAX) 0.4 MG Capsule Take 0.4 mg by mouth daily. Grey Guerra D.O. Emergency/Tactical Medicine Note: Portions of this chart may have been completed with voice recognition software and may contain slight errors unrecognizable by the users. This would in no way affect the patient's care and is meant to improve length and quality of medical decision making and history taking. * Mela Mary RN - 10/25/2023 3:00 PM CDT Pt resting on recliner and verbalizes understanding of plan of care. Pt denies needing anything further at this time. Call light within reach. * Supriya Garcia RN - 10/25/2023 1:12 PM CDT Patient arrives to ed from home with cough and runny nose x3 days. Patient was seen at [facility] and had a chest xray and swabs done. Swab was negative for covid and they gave him cough medication. He declined another xray but was agreeable to a swab. Vss. No acute distress noted. documented in this encounter Miscellaneous Notes * [employer] Patient Instructions - Grey Guerra DO - 10/25/2023 4:38 PM CDT Images from the original note were not included. Patient Education Table of Contents Acute Bronchitis, Adult To view videos and all your education online visit, [email or web address] or scan this QR code with your smartphone. Access to this content will in one year. Acute Bronchitis, Adult Acute bronchitis is sudden inflammation of the main airways (bronchi) that come off the windpipe (trachea) in the lungs. The swelling causes the airways to get smaller and make more mucus than normal. This can make it hard to breathe and can cause coughing or noisy breathing (wheezing). Acute bronchitis may last several weeks. The cough may last longer. Allergies, asthma, and exposureto smoke may make the condition worse. What are the causes? This condition can be caused by germs and by substances that irritate the lungs, including: Cold and flu viruses. The most common cause of this condition is the virus that causes the common cold. Bacteria. This is less common. Breathing in substances that irritate the lungs, including: ? Smoke from cigarettes and other forms of tobacco. ? Dust and pollen. ? Fumes from household cleaning products, gases, or burned fuel. ? Indoor or outdoor air pollution. What increases the risk? The following factors may make you more likely to develop this condition: A weak body's defense system, also called the immune system. A condition that affects your lungs and breathing, such as asthma. What are the signs or symptoms? Common symptoms of this condition include: Coughing. This may bring up clear, yellow, or green mucus from your lungs (sputum). Wheezing. Runny or stuffy nose. Having too much mucus in your lungs (chest congestion). Shortness of breath. Aches and pains, including sore throat or chest. How is this diagnosed? This condition is usually diagnosed based on: Your symptoms and medical history. A physical exam. You may also have other tests, including tests to rule out other conditions, such as pneumonia. These tests include: A test of lung function. Test of a mucus sample to look for the presence of bacteria. Tests to check the oxygen level in your blood. Blood tests. Chest X-ray. How is this treated? Most cases of acute bronchitis clear up over time without treatment. Your health care provider may recommend: Drinking more fluids to help thin your mucus so it is easier to cough up. Taking inhaled medicine (inhaler) to improve air flow in and out of your lungs. Using a vaporizer or a humidifier. These are machines that add water to the air to help you breathebetter. Taking a medicine that thins mucus and clears congestion (expectorant). Taking a medicine that prevents or stops coughing (cough suppressant). It is not common to take an antibiotic medicine for this condition. Follow these instructions at home: Take [id number]-klstrpg and prescription medicines only as told by your health care provider. Use an inhaler, vaporizer, or humidifier as told by your health care provider. Take two teaspoons (10 mL) of honey at bedtime to lessen coughing at night. Drink enough fluid to keep your urine pale yellow. Do not use any products that contain nicotine or tobacco. These products include cigarettes, chewing tobacco, and vaping devices, such as e-cigarettes. If you need help quitting, ask your health careprovider. Get plenty of rest. Return to your normal activities as told by your health care provider. Ask your health care provider what activities are safe for you. Keep all follow-up visits. This is important. How is this prevented? To lower your risk of getting this condition again: Wash your hands often with soap and water for at least 20 seconds. If soap and water are not available, use hand graphic manager. Avoid contact with people who have cold symptoms. Try not to touch your mouth, nose, or eyes with your hands. Avoid breathing in smoke or chemical fumes. Breathing smoke or chemical fumes will make your condition worse. Get the flu shot every year. Contact a health care provider if: Your symptoms do not improve after 2 weeks. You have trouble coughing up the mucus. Your cough keeps you awake at night. You have a fever. Get help right away if you: Cough up blood. Feel pain in your chest. Have severe shortness of breath. Faint or keep feeling like you are going to faint. Have a severe headache. Have a fever or chills that get worse. These symptoms may represent a serious problem that is an emergency. Do not wait to see if the symptoms will go away. Get medical help right away. Call your local emergency services (911 in the [place] Do not drive yourself to the hospital. Summary Acute bronchitis is inflammation of the main airways (bronchi) that come off the windpipe (trachea)in the lungs. The swelling causes the airways to get smaller and make more mucus than normal. Drinking more fluids can help thin your mucus so it is easier to cough up. Take rcng-qbd-[id number] and prescription medicines only as told by your health care provider. Do not use any products that contain nicotine or tobacco. These products include cigarettes, chewing tobacco, and vaping devices, such as e-cigarettes. If you need help quitting, ask your health careprovider. Contact a health care provider if your symptoms do not improve after 2 weeks. This information is not intended to replace advice given to you by your health care provider. Make sure you discuss any questions you have with your health care provider. Document Released: 2005 Document Updated: 2022-08-30 Document Reviewed: 2021-09-20 [employer] Patient Education ? 2023 [employer]. documented in this encounter Plan of Treatment Not on file documented as of this encounter Procedures Procedure Name Priority Date/Time Associated Diagnosis Comments XR CHEST 2 VIEWS STAT 10/25/2023 3:30 PM CDT RSV,SARS-COV-2,INFL UENZA A&B BY PCR STAT 10/25/2023 1:15 PM CDT documented in this encounter Results * XR CHEST 2 VIEWS (10/25/2023 3:30 PM CDT) Anatomical Region Laterality Modality Chest N/A Digital Radiogra phy 10/25/2023 4:02 PM CDT Impressions 10/25/2023 4:04 PM CDT IMPRESSION: 1. ?? Minimal basilar atelectasis, similar to prior study. ??No focal consolidation, effusion or pneumothorax Narrative 10/25/2023 4:04 PM CDT EXAM DESCRIPTION: XR CHEST 2 VIEWS REASON FOR STUDY: Cough and runny nose for 3 days. ??Patient seen at emergency department 2 days ago. TECHNIQUE: PA and lateral ??radiographic view(s) of the chest. COMPARISON: 10/23/2023 and 10/02/2023 FINDINGS: LUNGS: ??There is minimal atelectasis in each lung base. ?? No localized consolidation. ??No effusion or pneumothorax. HEART/MEDIASTINUM: ??Cardiac silhouette is within normal limits in size. ??Pulmonary vascularity within normal limits. ??Atherosclerotic changes of the aorta. LINES/TUBES: ??None. BONES: ??Thoracic spondylosis. ??Osteoarthritis of the shoulders. THIS IS AN ELECTRONICALLY VERIFIED FINAL REPORT 10/25/2023 4:02 PM - Electronically signed by ??Lorena Steward M.D. TW: AMANDA D: ??10/25/2023 4:02 PM T: ??10/25/2023 4:02 PM Report ID: [id number] Reading Location: ??[id number] Procedure Note Lorena Steward MD - 10/25/2023 EXAM DESCRIPTION: XR CHEST 2 VIEWS REASON FOR STUDY: Cough and runny nose for 3 days. Patient seen at emergency department 2 days ago. TECHNIQUE: PA and lateral radiographic view(s) of the chest. COMPARISON: 10/23/2023 and 10/02/2023 FINDINGS: LUNGS: There is minimal atelectasis in each lung base. No localized consolidation. No effusion or pneumothorax. HEART/MEDIASTINUM: Cardiac silhouette is within normal limits in size. Pulmonary vascularity within normal limits. Atherosclerotic changes of the aorta. LINES/TUBES: None. BONES: Thoracic spondylosis. Osteoarthritis of the shoulders. THIS IS AN ELECTRONICALLY VERIFIED FINAL REPORT 10/25/2023 4:02 PM - Electronically signed by Lorena Steward M.D. TW: TW Report ID: [id number] Reading Location: [id number] IMPRESSION: 1. Minimal basilar atelectasis, similar to prior study. No focal consolidation, effusion or pneumothorax us Grey Guerra DO IMG DIAGNOSTIC ORDERABL ES Final Result * RSV,SARS-COV-2,INFLUENZA A&B BY PCR (10/25/2023 1:15 PM CDT) FLU A Negative Negative, Error 10/25/2023 2:20 PM CDT [facility] FLU B Negative Negative 10/25/2023 2:20 PM CDT [facility] RESP SYNC VIRUS Negative Negative 2:20 PM CDT [facility] SARSCOV2 NOT DETECTED (Reference Range for this test is Not Detected) 10/25/2023 2:20 PM CDT [facility] Comment:This test was perfor med by a Reverse Director Global Strategic Publisher Sales PCR Method. Swab NASOPHARYNGEAL SWAB / Unknown Non-Phlebotomy Collection / Unknown 10/25/2023 1:15 PM CDT 10/25/2023 1:40 PM CDT Narrative [facility] - 10/25/2023 2:20 PM CDT This test has not been FDA cleared or approved; the test has been authorized by FDA under an Emergency Use Authorization (EUA) for use by laboratories certified under the CLIA that meet the requirements to perform moderate, high or waived complexity tests. Authorized Fact Sheets about this test for providers and patients are available at: https://www.fda.gov/medical-devices/dpvekhcqm-peqxpnocqy-hnszasr-devices/emergen -us e-authorizations us Malia Maki Page PAC MICROBIOLOGY - GENERAL ORDER DIEGO Final Result [facility] [address] [place] [address] documented in this encounter Visit Diagnoses Diagnosis Acute bronchitis Acute sinusitis Acute sinusitis, unspecified documented in this encounter Administered Medications Inactive Administered Medications - up to 3 most recent administrations Medication Order MAR Action Action Date Dose Rate Site levoFLOXacin (LEVAQUIN) tablet 500 mg 500 mg, Oral, DAILY, 5 doses, First dose on Sat10/25/23 at 1700, Last dose on Sat10/29/23 at 0900, Indications: Community Acquired PneumoniaIndications:Community Acquired Pneumonia Given 10/25/2023 4:46 PM CDT 500 mg documented in this encounter Active and Recently Administered Medications Times are shown in CDT. Scheduled Medication Order 10/23/2023 10/24/2023 10/25/2023 levoFLOXacin (LEVAQUIN) tablet 500 mg 500 mg, Oral, DAILY, 5 doses, First dose on Sat10/25/23 at 1700, Last dose on Sat10/29/23 at 0900, Indications: Community Acquired Pneumonia 1646 (Given - Provid er: Mela Mary RN) documented in this encounter Care Teams Wastewater Treatment Supervisor Relationship Specialty Start Date End Date Grey Tomas MD [address] [place] [id number] PCP - General Family Medicine 10/25/23 documented as of this encounter
--- OUTSIDE RECORDS SUMMARY | 2024-06-14 16:44 | XMS_ITS | Encounter Summary ---
Author Organization [facility] Address [address] [facility] [facility] [place] [address] Care Team Providers Care Pharmaceutical Service Representative Name Role Phone Unavailable Primary Care Provider Unavailabl e Reason for Referral * Procedure (Routine) - Closed Specialty Diagnoses / Procedures Referred By Alcira forrest Referred To Contact Gastroenterology Diagnoses Abnormal weight loss Change in bowel function Procedures ENDOSCOPY, COLON, SCREENING Zelda Batista APRN-CNP [id number] [place] [phone] Referral ID Status Reason Start Date Expiration Date Visits Re quested Visits Authorized [id number] Closed 03/11/2020 03/11/2021 1 1 Reason for Visit * Reason Comments Pain Abdominal after eating Gastroesophageal Reflux Encounter Details Date Type Department Care Team (Late st Contact Info) Description 03/11/2020 9:45 AM CDT Video Visit [facility] [address] [facility], [address] [place] [address] Zelda Batista APRN-CNP [id number] [facility] [address] [place] [address] Abnormal weight loss ; Change in bowel function; Gastroesophageal reflux disease, unspecified whether esophagitis present Social History Tobacco Use Types Packs/Day Years [...] AM CDT documented as of this encounter Progress Notes * Zelda Batista, MARBLE INSTALLATION HELPER-BUFFER AUTOMATIC - 03/11/2020 9:45 AM CDT Telemedicine Note Today's visit was conducted virtually due to COVID-19 countermeasures. The patient has given verbalconsent to have today's visit conducted by this same means with treatment provided remotely. The patient verbally consents to the billing and collection practices of [facility]. 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 Abnormal weight loss Patient reports that he [...] his family history as he is adopted. ROS: Gen: No weight loss, fevers, chills, [...] patient record. Patient Active Problem List: Migraine No past medical history on file. No past surgical history on file. Allergies: Allergies Allergen Reactions ??? Acetaminophen Itching ??? Hydrocodone Itching ??? Vicodin [Hydrocodone-Acetaminophen] Current meds: Updated in epic chart, and personally reviewed by me Social [...] Tobacco Use ??? Smoking status: Never Smoker Substance and Sexual Activity ??? Alcohol use: Not on file ??? Drug use: Not on file ??? Sexual activity: Not on file Lifestyle ??? Physical activity Days per week: Not on file Minutes per session: Not on file ??? Stress: Not on file Relationships ??? 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 1. Abnormal weight loss Reports a 30 lb unintentional weight loss over the last 6-8 months. He denies any significant changes in his eating habits. His appetite is good. Denies any symptoms of early satiety. The last imaging he had was February [address] of the abdomen and pelvis without contrast. There is no etiology of the patient's weight loss noted on the CT. The patient is going through increased stress taking care of his sick . The patient will be scheduled for upper endoscopy and colonoscopy for further evaluation of weight loss. Biopsies will be obtained to rule out H pylori and celiac disease. 2. Abdominal pain Symptoms present for the last 3-4 weeks. The pain is in the middle of his abdomen. It does not radiate. The pain is exacerbated by eating. Proceed with EGD and colonoscopy 3. Change in bowel pattern Over the last several months patient reports over the last several months he has noticed more frequent loose stools. He also experiences urgency with the bowel movement. There is no melena or hematochezia. His last colonoscopy in 2011 was notable for internal hemorrhoids. Given his recent weight loss and change in bowel pattern he will be scheduled for colonoscopy. 4. GERD History of chronic GERD. Symptoms are adequately controlled on Nexium 20 mg q.a.m. and Pepcid 40 mgq.h.s. He has occasional breakthrough symptoms. He denies any dysphagia. He has no prior upper endoscopy. The plan was reviewed with the patient and the patient confirmed understanding of the plan and all follow-up steps. All aspects of patient's medical history were reviewed and updated as documented in [facility] Kauffman documented in this encounter Plan of Treatment Not on file documented as of this encounter Results * ENDOSCOPY, COLON, SCREENING (03/14/2020 9:53 AM [...] Procedure Code(s): ? --- Professional --- ? 94396, Colonoscopy, flexible; with removal of tumor(s), polyp(s), or ? other lesion(s) by snare technique ? --- Technical --- ? 38346, Colonoscopy, flexible; with removal of tumor(s), polyp(s), [...] R10.84, Generalized abdominal pain CPT copyright 2017 [employer]. All rights reserved. The codes documented in this report are preliminary and upon hcc coders review may be revised to meet current compliance requirements. Dr. Rojas Zuniga M.D. Rojas Zuniga MD 03/14/2020 12:47:22 PM Number of Addenda: 0 Note Initiated On: 03/14/2020 9:53 AM [facility] ENDOSCOPY 03/14/2020 9:53 AM CDT Zelda Batista MARBLE INSTALLATION HELPER-BUFFER AUTOMATIC GI PROCEDURE OR DERABLES Performing Organization Address City/State/[facility] Co de Phone Number [facility] [place] [address] documented in this encounter Visit Diagnoses Diagnosis Abnormal weight loss- Primary Loss of weight Change in bowel function Other symptoms involving digestive system Gastroesophageal reflux disease, unspecified whether esophagitis present documented in this encounter
--- OUTSIDE RECORDS SUMMARY | 2024-06-14 16:44 | XMS_ITS | Encounter Summary ---
Author Organization [employer] Care Team Providers Care Revenue Collector Name Role Phone Viraj Romeo Primary Care Provider [phone] Encounter Details Date Type Department Care Team (Latest Contact Info) Description 02/12/2020 Travel Social History Tobacco Use Types Packs/Day [...] have Coronavirus / COVID-19? No / Unsure 02/12/2020 11:03 AM CDT documented as of this encounter Plan of Treatment Not on file documented as of this encounter Visit Diagnoses Not on filedocumented in this encounter Care Teams Revenue Collector Relationship Specialty Start Date End Date Viraj Romeo PAC [address] [place] [id number] PCP - General Physician Loss Prevention Specialist 11/20/17 10/24/23 documented as of this encounter
--- OUTSIDE RECORDS SUMMARY | 2024-06-14 16:44 | XMS_ITS | Encounter Summary ---
Author Organization [facility] Address [address] [facility] [place] [address] Care Team Providers Care Axminster Weaver Name Role Phone Unavailable Primary Care Provider Unavailabl e Encounter Details Date Type Department Care Team (Late st Contact Info) Description 06/26/2011 Orders Only [facility] Neurosciences [address] [place] [address] [place] [address] [place] [address] Social History Tobacco Use Types Packs/Day Years [...]
--- OUTSIDE RECORDS SUMMARY | 2024-06-14 16:44 | XMS_ITS | Encounter Summary ---
Author Organization [facility] Address [address] [facility] [place] [address] Care Team Providers Care Lead Business Systems Analyst Name Role Phone Unavailable Primary Care Provider Unavailabl e Reason for Visit * Reason Comments MIGRAINE Encounter Details Date Type Department Care Team (Late st Contact Info) Description 04/13/2013 10:00 AM FIRE PATROL Office Visit [facility] Neurosciences [address] [place], [place] [id number] [place] [address] [place] [address] Migraine (Primary Dx) Social History [...] Sign Reading Time Taken Comments Blood Pressure 132/89 04/13/2013 10:12 AM FIRE PATROL Pulse 88 04/13/2013 10:12 AM FIRE PATROL Temperature - - Respiratory Rate - - Oxygen Saturation - - Inhaled Oxygen Concentration - - Weight 104.5 kg (230 lb 6.4 oz) 013 10:12 AM FIRE PATROL Height 184 cm (6' 0.44 ) 04/13/2013 10: 12 AM FIRE PATROL Body Mass Index 30.87 04/13/2013 10:12 AM FIRE PATROL documented in this encounter Patient Instructions * Patient Instructions* Nallely Navas - 04/13/2013 10:19 AM FIRE PATROL Call physician if symptoms worsen or with any questions. Take Medications as prescribed. For descriptions of a variety of neurological conditions please visit: [email or web address] PATROL documented in this encounter Progress Notes * Lui Ledesma MD - 04/13/2013 10:13 AM CST Office Visit Samuel Sanchez is a 67 y.o. male who presents for his headaches. He gets 1-2 FREDERICK per month. These are rapidly aborted with Imitrex. He stopped the Topamax without increase in the FREDERICK frequency. He has overll been doing well. TPM 25mg QOD - stopped taking Imitrex PRN No past medical history on file. Review of Systems - General ROS: negative General Exam: VS: BP 132/89 Pulse 88 Wt 104.509 kg (230 lb 6.4 oz) BMI 30.87 kg/m2 General: Well-developed, well-nourished Neurological Exam: Mental [...] restriction in his current occupation. Plan: Imitrex 100mg PRN, may take with NSAIDs RTO 1 year PATROL documented in this encounter Plan of Treatment Not on file documented as of this encounter Visit Diagnoses Diagnosis Migraine- Primary documented in this encounter
--- OUTSIDE RECORDS SUMMARY | 2024-06-14 16:44 | XMS_ITS | Encounter Summary ---
Author Organization [facility] Address [address] [facility] [place] [address] Care Team Providers Care Sales Development Director Name Role Phone Unavailable Primary Care Provider Unavailabl e Reason for Visit * Reason Comments Refill Request Encounter Details Date Type Department Care Team (Late Contact Info) Description 03/18/2020 Refill [facility] Medical [facility] [address] [address], [address] [place] [address] [place] [address] [facility] [address] [place] [address] Refill Request Social History Tobacco Use Types [...]
--- OUTSIDE RECORDS SUMMARY | 2024-06-14 16:44 | XMS_ITS | Encounter Summary ---
Author Organization [facility] Address [address] [facility] [place] [address] Care Team Providers Care Sand Temperer Name Role Phone Unavailable Primary Care Provider Unavailabl e Encounter Details Date Type Department Care Team (Latest Contact Info) Description 04/04/2020 Travel Social History Tobacco Use Types Packs/Day [...] COVID-19? No / Unsure 04/04/2020 8:21 AM BRAKE COUPLER DINKEY documented as of this encounter Plan of Treatment Not on file documented as of this encounter Visit Diagnoses Not on filedocumented in this encounter
--- OUTSIDE RECORDS SUMMARY | 2024-06-14 16:44 | XMS_ITS | Encounter Summary ---
Author Organization [facility] Address [address] [place] [address] Phone Care Team Providers Care Modeling Manager Name Role Phone Fawn Romeo Primary Care Provider [phone] Reason for Visit * Reason Comments Flank Pain * Auth/Cert Specialty Diagnoses / Procedures Referred By Contac t Referred To Contact Diagnoses Ureterolithiasis Right Ureterolithiasis with severe hydroureteronephrosis Referral ID Status Reason Start Date Expiration Date Visits Re quested Visits Authorized [id number] 1 1 Encounter Details Date Type Department Care Team (Late st Contact Info) Description 02/06/2020 11:40 AM CDT - 02/06/2020 12:45 PM CDT [facility] [address] [place] [address] Elizabeth Alba MD [address] [address] [place] [address] CYSTOSCOPY HOLMIUM LASER, RIGHT STENT INSERTION, BASKET STONE EXTRACTION, RIGHT URETEROSCOPY Surgery Details Date/Time Status Location OR Service Patient Class Case Cl ass Case Type Trauma Case? 02/06/2020 11:40 AM Posted [facility] MAIN OR 01 Urology Inpatient Urgent Panel 1 Procedure LRB Anes Op Region Wound Class Comments CYSTOSCOPY HOLMIUM LASER, RIGHT STENT INSERTION, BASKET STONE EXTRACTION, RIGHT URETEROSCOPY Right Monitored Anesthesia Care Ureter Clean Contaminated Surgeon Surgeon Role Service Panel Elizabeth Alba MD Primary Urology 1 documented in this encounter Social History [...] Sign Reading Time Taken Comments Blood Pressure 111/76 02/06/2020 12:43 PM CDT Pulse 56 02/06/2020 8:33 AM CDT Temperature 35.5 ??C (95.9 ??F) 02/06/2020 12:43 PM C DT Respiratory Rate 16 02/06/2020 12:43 PM CDT Oxygen Saturation 98% 02/06/2020 12:43 PM CDT Inhaled Oxygen Concentration - - Weight 96.2 kg (212 lb) 02/05/2020 11:19 PM CDT Height 185.4 cm (6' 1 ) 02/05/2020 11:19 PM CDT Body Mass Index 27.97 02/05/2020 11:19 PM CDT documented in this encounter Discharge Summaries * Esa Castaneda MD - 02/08/2020 10:52 AM CDT [facility] DISCHARGE SUMMARY Name: Samuel Sanchez Age: 74 y.o. : 1945 Attending Physician: Esa Castaneda MD Admission Date/Time: 02/05/2020 Expected Discharge Date: Primary Care Physician: OMAR VIGIL Discharging Provider: Esa Castaneda MD INSTRUCTIONS FOR PHYSICIANS ON FOLLOW UP AFTER DISCHARGE: Follow-up Information Follow up With Specialties Details Why Contact Info Fawn Romeo PAC Physician Work Car Operator Follow up in 1 week(s) [address] [place] [id number] Elizabeth Alba MD Urology Follow up in 2 week(s) with renal US #[address] [facility] [id number] Discharge Instructions: Discharge Condition: improved Disposition: Home [...] GERD, history of migraines, who presented to [facility] with complaints of right flank pain that [...] found for: HGBA1C No results found for: [id number] No results found for: CPK, CPKI, CKMB, CKMBNI, CKMBPOCT, CKMBRELINDX, TROPONINI, POCTRP No results found for: FERRITIN No components found for: FOLATE No results found for: PHARTERIAL, PO2ART, SAD6JXC, CO2ART, O2ART No results found for: LACACIDPOCT, [...] Your Medications These medications were sent to [facility] #[id number] - [facility] [address] [facility] [address] [place] [address] Hours: 24-hours ?? HYDROcodone-acetaminophen 5-325 MG Tabs [...] Thank you very much for allowing the [facility] Adult Hospitalist Service to participate in the care of this patient. If you have any questions, please don't hesitate to call. Signed: Esa Castaneda MD, 02/08/2020, 10:52 AM CDT documented in this encounter Discharge Instructions * Attachments The following attachments cannot be sent through Care Everywhere. * Angioplasty and Stenting, Renal (Gibraltarian) * Amoxicillin; Clavulanic Acid tablets (Gibraltarian) * Acetaminophen; Hydrocodone tablets or capsules (Gibraltarian) * Levofloxacin tablets (Gibraltarian) * Phenazopyridine tablets (Gibraltarian) documented in this encounter Medications at Time [...] MD - 02/07/2020 1:35 PM CDT [facility] INPATIENT DAILY PROGRESS NOTE Anticipated Date of [...] Results: No results found for: PHARTERIAL, PO2ART, RIU2YVE, CO2ART, O2ART Lab Results Component Value Date [...] for: LACACIDPOCT, LACTICA No results found for: [id number] No results found for: FERRITIN Lab Results Component Value Date GLUCOSEPOCT 89 02/06/2020 EKG: Ekg 12 Lead Result Date: 02/07/2020 Sinus rhythm with borderline 1st degree A-V block Comparison Summary: No serial comparison made Summary: Borderline [place] [id number] on 02/07/2020 6:57:21 AM Imaging: No results [...] MD - 02/07/2020 9:36 AM CDT [facility] INPATIENT DAILY PROGRESS NOTE Anticipated Date of [...] Results: No results found for: PHARTERIAL, PO2ART, ZEW1QNV, CO2ART, O2ART Lab Results Component Value Date [...] for: LACACIDPOCT, LACTICA No results found for: [id number] No results found for: FERRITIN Lab Results Component Value Date GLUCOSEPOCT 89 02/06/2020 EKG: Ekg 12 Lead Result Date: 02/07/2020 Sinus rhythm with borderline 1st degree A-V block Comparison Summary: No serial comparison made Summary: Borderline [place] [id number] on 02/07/2020 6:57:21 AM Imaging: Xr Surgical Exam Result Date: 02/06/2020 IMPRESSION: 1. Intraoperative fluoroscopic images showing a dilated right ureter with subsequent placement of a right ureteral stent. Please see operative report for further details. By: Esa Castaneda MD, 02/07/2020 9:36 AM CDT * Esa Castaneda MD - 02/06/2020 5:00 PM CDT [facility] INPATIENT DAILY PROGRESS NOTE Anticipated Date of [...] Results: No results found for: PHARTERIAL, PO2ART, ZFD8UUA, CO2ART, O2ART Lab Results Component Value Date [...] for: LACACIDPOCT, LACTICA No results found for: [id number] No results found for: FERRITIN Lab Results [...] this encounter H&P Notes * Nita Jerez, DIALER, MACHINE REPAIRMAN - 02/06/2020 1:45 AM CDT [facility] ADMISSION HISTORY & PHYSICAL HPI: Samuel Sanchez is a 74 y.o. 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 Patient [...] 02/05/2020 No results found for: PHARTERIAL, PO2ART, HVH6STT, CO2ART, O2ART No results found for: CPK, [...] Thank you very much for allowing the [facility] to participate in the care of this patient By: Nita Jerez APN, CNP, 02/06/2020, 1:45 AM CDT Primary Care Physician: FAWN ROMEO PAC Cosigned by Esa Castaneda MD at [...] and stent placement Surgeon(s): Elizabeth Alba MD REAMER HAND: Nikki rS APN, CRNA Estimated Blood Loss: EBL: 5 [...] Senia Guan - 02/06/2020 1:18 AM CDT [employer] exchange line contacted and paged. * Caryn [...] SURGERY 1970 ??? ROTATOR CUFF REPAIR Right 1969 ??? TESTICLE REMOVAL 1969 ??? VASECTOMY 1969 Social History Socioeconomic History ??? Marital status: [...] file Gets together: Not on file Attends religion service: Not on file Active member of [...] 18 Ht 6' 1 (1.854 m) Wt 212 lb (96.2 kg) SpO2 98% BMI 27.97 kg/m?? [...] by Ariel Canseco BB: DEVIN Report ID: [id number] Reading Location: [address] Number of Diagnoses or Management Options [...] Samuel Sanchez Age: 74 y.o. Gender: male Time:013 Rate: 55 Rhythm: NSR Other Findings: Normal [...] in the hospital. I consulted with Dr. Alab who will see the patient later this [...] CRNA - 02/08/2020 2:10 PM CDT [facility] Assessment: Date of Procedure: 02/06/2020 Surgeon: [...] and understands his plan of care. * Interdisciplinary - Elan Gavin RN - 02/07/2020 2:57 [...] stimuli, to help with the pain. * Elan Eden RN - 02/07/2020 7:24 AM CDT Patient resting in bed. A&O x4. Patient complains of flank pain and a headache 09/10. Patients IV is currently infusing without difficulty. Will continue to monitor. * Sara White RN - 02/07/2020 3:21 AM CDT Patient alert and oriented x 4. Continues on IVF and ABX as ordered. Temp 99.9 last evening. Tylenol given for temp and headache. Resting between care. Voiding dark tea colored urine. Call hutton in reach. Continue to monitor, * Elan Eden RN - 02/06/2020 4:11 PM CDT Checked back in on patient and he was resting in bed. He had stopped shaking for the time being. IVfluids currently infusing. Patient has been instructed on the call light and knows to use it if he needs anything. * Himanshu - Neetu Linda RN - 02/06/2020 4:06 PM CDT I agree with all of elan's charting. * Elan Eden RN - 02/06/2020 3:45 PM CDT Patient [...] cytoscopy. Call light within reach. Patient educated track service person light. Taken 02/06/2020 0821 by Elan Gavin [...] is calm and cooperative. IV fluids infusing. [place] was given for pain. Will reassess pain per policy. Will continue to monitor. * Himanshu - Ellen Fong RN - 02/06/2020 6:12 AM CDT Pt. Asleep resting in bed. Pt A&O:x4. No s/sx of distress noted. IVF infusing. Pt. C/o of mild-moderate pain, pt. Medicated per MAR. Call light is within reach. No alarms [...] No alarms present. Pt. Oriented and education track service person light use. documented in this encounter Plan [...] PM - Electronically signed by Sulaiman Gar M.D., JR: D: ??02/12/2020 3:34 PM T: ??02/12/2020 3:34 PM Report ID: [id number] Reading Location: ??[id number] Procedure Note Sulaiman Gar MD - 02/12/2020 [...] PM - Electronically signed by Sulaiman Gar M.D., JR: Report ID: [id number] Reading Location: [id number] IMPRESSION: 1. Mild right pelviectasis. This is similar to the ultrasound from 02/16/2011, with improved hydronephrosis compared with CT dated 02/05/2020. 2. Moderate left hydronephrosis. Elizabeth Alba MD [facility] US ORDERABLES Final Res ult * (ABNORMAL) URINALYSIS REFLEX IF INDICATED BY ABNORMAL RESULTS (02/06/2020 5:52 PM CDT) Only the most recent of2 resultswithin the time period is included. SPECIFIC GRAVITY 1.010 1.003 - 1.030 02/06/2020 6:23 PM CDT [facility] URINE PH 6.0 5.0 - 9.0 02/06/2020 6:23 PM CDT [facility] WBC ESTERASE 100 /uL(A) Negative 02/06/2020 6:23 PM CDT [facility] NITRITE Positive(A) Negative 02/06/2020 6:23 PM CDT [facility] PROTEIN, RANDOM URINE 100 mg/dL(A) Negative 02/06/2020 6:23 PM CDT [facility] URINE GLUCOSE, QUAL Negative Negative 02/06/2020 6:23 PM CDT [facility] URINE KETONES Negative Negative 02/06/2020 6:23 PM CDT [facility] UROBILINOGEN Normal Normal mg/dL 02/06/2020 6:23 PM CDT [facility] URINE BILIRUBIN Negative Negative 0 6:23 PM CDT [facility] URINE BLOOD 250 /uL(A) Negative vinod/ul 02/06/2020 6:23 PM CDT [facility] URINALYSIS COLOR [place] 02/06/2020 6:23 PM CDT [facility] URINALYSIS CLARITY Very Cloudy 02/06/2020 6:23 PM CDT [facility] WBC (Urine) 11-20(A) Negative, 0-5 /hpf 02/06/2020 6:23 PM CDT [facility] URINE RBC'S 51-150(A) Negative, 0-2 /hpf 02/06/2020 6:23 PM CDT [facility] EPITHELIAL CELLS Occasional /lpf 02/06/2020 6:23 PM CDT [facility] BACTERIA, URINE Many(A) Negative /hpf 02/06/2020 6:23 PM CDT [facility] Urine URINE SPECIMEN / Unknown Non-Phlebotomy Collection / Unknown 02/06/2020 5:52 PM CDT 02/06/2020 6:00 PM CDT us Esa Castaneda MD URINE ORDERABLES Final R esult [facility] [address] [place] [address] * Culture, Blood (02/06/2020 5:32 PM CDT) Only the most recent of2 resultswithin the time period is included. CULTURE RESULTS NO GROWTH WITHIN 5 DAYS, FINAL RESULT 02/11/2020 6:00 PM CDT [facility] Culture BLOOD SPECIMEN / Unknown Venipuncture / Unknown 02/06/2020 5:32 PM CDT 02/06/2020 5:34 PM CDT us Esa Castaneda MD MICROBIOLOGY - GENERAL O RDERABLES Final Result [facility] [address] [place] [address], [place] * POCT Glucose (02/06/2020 3:06 PM CDT) GLUCOSE,BEDSIDE POCT 89 70 - 99 mg/dL 02/06/2020 3:13 PM CDT [facility] Blood 02/06/2020 3:06 PM CDT 02/06/2020 3:13 PM CDT us Esa Castaneda MD POINT OF CARE TESTING Fi nal Result [facility] [address] [place] [address] * XR SURGICAL EXAM (02/06/2020 12:55 PM [...] PM T: ??02/06/2020 2:57 PM Report ID: [id number] Reading Location: ??[id number] Procedure Note Jose Marrero MD - 02/06/2020 [...] Jose Marrero M.D. LB: VANIA Report ID: [id number] Reading Location: [id number] IMPRESSION: 1. Intraoperative fluoroscopic images showing a dilated right ureter with subsequent placement of a right ureteral stent. Please see operative report for further details. Elizabeth Alba MD [facility] DIAGNOSTIC ORDERABLES F inal Result * Pathology Surgical (02/06/2020 12:29 PM CDT) Case Report Surgical Pathology Report ? Case: [id number] ? Authorizing Provider: ??Elizabeth Alba MD ? Collected: ? 02/06/2020 12:29 PM ? Ordering Location: ? [facility] ? Received: ?02/09/2020 09:03 AM ? [facility] ? Main OR ? Pathologist: ? Tila Manzanares, ? MD ? Specimen: ?Stone, RIGHT URETERAL STONE ? 02/09/2020 1:48 PM CDT [facility] FINAL DIAGNOSIS Calculus, Right Ureteral, Removal: - Nephrolithiasis (gross examination only). 02/09/2020 1:48 PM CDT [facility] Pre-Operative Diagnosis UNKNOWN 02/09/2020 1:48 PM CDT [facility] Gross Description A. RIGHT URETERAL STONE The specimen presents in a single saline container for gross examination only labeled with the patient's name, Samuel Sanchez, and right ureteral stone . The specimen consists of three dark brown to black calculi measuring from 0.2 cm up to 0.3 cm in greatest dimension. All submitted to a reference laboratory for crystallographic examination. KS/dv 02/09/2020 1:48 PM CDT [facility] Tissue STONE - BODY MATERIAL / Unknown 02/06/2020 12:29 PM CDT 02/09/2020 9:03 AM CDT Elizabeth Alba MD PATHOLOGY/CYTOLOGY ORDERABL ES Final Result Performing Organization Address City/State/[facility] Co de Phone Number [facility] [address] [place] [address] * (ABNORMAL) CBC with Auto Differential (02/06/2020 4:03 AM CDT) Only the most recent of2 resultswithin the time period is included. WBC 8.06 4.00 - 12.00 10(3)/mcL 02/06/2020 5:36 AM CDT [facility] RBC 4.56 4.40 - 5.80 10(6)/mcL 02/06/2020 5:36 AM CDT [facility] HEMOGLOBIN (HGB) 14.5 13.0 - 16.5 g/dL 02/06/2020 5:36 AM CDT [facility] HEMATOCRIT (HCT) 44.3 38.0 - 50.0 % 02/06/2020 5:36 AM CDT [facility] MCV 97.1(H) 82.0 - 96.0 fL 02/06/2020 5:36 AM CDT [facility] MCH 31.8 26.0 - 32.0 pg 02/06/2020 5:36 AM CDT [facility] MCHC 32.7 31.0 - 36.0 g/dL 02/06/2020 5:36 AM CDT [facility] PLATELET COUNT 145 140 - 440 10(3)/mcL 02/06/2020 5:36 AM CDT [facility] RDW 13.1 11.8 - 15.5 % 02/06/2020 5:36 AM CDT [facility] MPV 11.3 8.0 - 12.6 fL 02/06/2020 5:36 AM CDT [facility] NEUTROPHILS 70.8(H) 40.0 - 68.0 % 02/06/2020 5:36 AM CDT [facility] LYMPHOCYTES 15.3(L) 19.0 - 49.0 % 02/06/2020 5:36 AM CDT [facility] MONOCYTES 9.2 3.0 - 13.0 % 02/06/2020 5:36 AM CDT [facility] EOSINOPHILS 4.2 0.0 - 8.0 % 02/06/2020 5:36 AM CDT [facility] BASOPHILS 0.5 0.0 - 1.0 % 02/06/2020 5:36 AM CDT [facility] ABSOLUTE NEUTROPHILS 5.71(H) 1.40 - 5.30 10(3)/mcL 02/06/2020 5:36 AM CDT [facility] ABSOLUTE LYMPHOCYTES 1.23 0.90 - 3.30 10(3)/mcL 02/06/2020 5:36 AM CDT [facility] ABSOLUTE MONOCYTES 0.74 0.10 - 0.90 10(3)/[facility] 02/06/2020 5:36 AM CDT [facility] ABSOLUTE EOSINOPHIL 0.34 0.00 - 0.50 10(3)/[facility] 02/06/2020 5:36 AM CDT [facility] ABSOLUTE BASOPHILS 0.04 0.00 - 0.10 10(3)/[facility] 02/06/2020 5:36 AM CDT [facility] NRBC PER 100 WBC 0 02/06/20 20 5:36 AM CDT [facility] Blood Venipuncture / Unknown 02/06/2020 4:03 AM CDT 02/06/2020 5:28 AM CDT us Nita Jerez LEGGER PRESS OPERATOR, MACHINE REPAIRMAN HEMATOLOGY ORDERABLES F inal Result [facility] [address] [place] [address] * (ABNORMAL) BMP with Ca, Total (02/06/2020 4:03 AM CDT) SODIUM 141 136 - 144 mmol/L 02/06/2020 5:59 AM CDT [facility] POTASSIUM 3.9 3.5 - 5.1 mmol/L 02/06/2020 5:59 AM CDT [facility] CHLORIDE 105 100 - 110 mmol/L 02/06/2020 5:59 AM CDT [facility] CO2, VENOUS 26 22 - 32 mmol/L 02/06/2020 5:59 AM CDT [facility] ANION GAP 13.9 8.0 - 20.0 mmol/L 02/06/2020 5:59 AM CDT [facility] GLUCOSE 73 70 - 99 mg/dL 02/06/2020 5:59 AM CDT [facility] BUN 25(H) 8 - 23 mg/dL 02/06/2020 5:59 AM CDT [facility] CREATININE, BLOOD 1.13 0.80 - 1.30 mg/dL 02/06/2020 5:59 AM CDT [facility] BUN/CREATININE RATIO 22(H) 12 - 20 ratio 02/06/2020 5:59 AM CDT [facility] CALCIUM 9.0 8.9 - 10.3 mg/dL 02/06/2020 5:59 AM CDT [facility] GFR, EST. NONAFRICAN >60 >=60 02/06/2020 5:59 AM CDT [facility] GFR, EST. >60 >=60 02/06/2020 5:59 AM CDT [facility] Comment: Creatinine Clearance is the preferred criteria for selecting drug dose adjustments in renally impaired patients. ??The GFR is provided as additional pertinent clinical information. GFR is reported in mL/min/1.73 sq m. Blood Venipuncture / Unknown 02/06/2020 4:03 AM CDT 02/06/2020 5:28 AM CDT us Nita Jerez LEGGER PRESS OPERATOR, MACHINE REPAIRMAN CHEMISTRY ORDERABLES Fi nal Result [facility] [address] [place] [address] * Pre-Procedural COVID-19 PCR Screening (02/06/2020 3:57 [...] for providers and patients are available at: https://www.fda.gov/medical-devices/gxzlzogze-zqzozukyiz-taqerro-devices/emergen -us e-authorizations us Nita Jerez LEGGER PRESS OPERATOR, MACHINE REPAIRMAN MICROBIOLOGY - GENERAL ORDERABLES Final Result [facility] [address] [place] [address], [place] * EKG 12 LEAD (02/06/2020 1:31 AM CDT) Ventricular Rate BPM EXTERNAL EKG Atrial Rate BPM EXTERNAL EKG P-R Interval 204 ms EXTERNAL EKG QRS Duration 80 ms EXTERNAL EKG Q-T Duration 444 ms EXTERNAL EKG QTC CALCULATION 425 ms EXTERNAL EKG P [place] 18 degrees EXTERNAL EKG R [place] -2 degrees EXTERNAL EKG T [place] 51 degrees EXTERNAL EKG 02/06/2020 1:31 AM CDT Impressions EXTERNAL EKG - 02/07/2020 6:57 AM CDT Sinus rhythm with borderline 1st degree A-V block Comparison Summary: No serial comparison made Summary: Borderline [place] [id number] on 02/07/2020 6:57:21 AM Narrative Procedure Note Ezequiel Feliz DO - 02/07/2020 IMPRESSION: Sinus rhythm with borderline 1st degree A-V block Comparison Summary: No serial comparison made Summary: Borderline [place] [id number] on 02/07/2020 6:57:21 AM us Azeem Chavez MD IMG ECG ORDERABLES Final Result EXTERNAL EKG * Culture, Urine (02/06/2020 1:18 [...] be performed and reported if positive. us Azeem Chavez MD MICROBIOLOGY - GENERAL OR DERABLES Final Result [facility] [address] [place] [address], [place] * CT RENAL STONE STUDY (ABDOMEN [...] - Electronically signed by Ariel Canseco BB: BB D: ??02/06/2020 1:04 AM T: ??02/06/2020 1:04 AM Report ID: [id number] Reading Location: ??[id number] Procedure Note Ariel Canseco MD - 02/06/2020 [...] by Ariel Canseco BB: DEVIN Report ID: [id number] Reading Location: [id number] IMPRESSION: 1. 0.5 cm right distal ureter obstructing stone with moderate to severe right hydroureteronephrosis. There is mild perinephric stranding versus trace fluid. 2. Subtle 1-2 mm radiopaque density at the left ureteropelvic junction suspicious for partially obstructing stone. Mild left hydro nephrosis. 3. Bilateral sub 6 mm non-obstructing renal stones as described above. Azeem Chavez MD IMG CT ORDERABLES Final R esult * (ABNORMAL) CMP (Comprehensive Metabolic Panel) (02/05/2020 11:15 PM CDT) SODIUM 141 136 - 144 mmol/L 02/06/2020 12:11 AM CDT [facility] POTASSIUM 3.5 3.5 - 5.1 mmol/L 02/06/2020 12:11 AM CDT [facility] CHLORIDE 104 100 - 110 mmol/L 02/06/2020 12:11 AM CDT [facility] CO2, VENOUS 27 22 - 32 mmol/L 02/06/2020 12:11 AM CDT [facility] ANION GAP 13.5 8.0 - 20.0 mmol/L 02/06/2020 12:11 AM [facility] GLUCOSE 137(H) 70 - 99 mg/dL 02/06/2020 12:11 AM [facility] BUN 24(H) 8 - 23 mg/dL 02/06/2020 12:11 AM [facility] CREATININE, BLOOD 1.24 0.80 - 1.30 mg/dL 02/06/2020 12:11 AM [facility] BUN/CREATININE RATIO 19 12 - 20 ratio 02/06/2020 12:11 AM [facility] TOTAL PROTEIN 6.6 6.0 - 8.3 g/dL 02/06/2020 12:11 AM [facility] ALBUMIN 4.2 3.5 - 5.2 g/dL 02/06/2020 12:11 AM [facility] Comment: The colormetric methods used for the determination of Albumin may lead to falsely elevated test results in patients suffering from renal failure or insufficiency due to interference with other proteins. A/G RATIO 1.8 1.0 - 2.0 02/06/2020 12:11 AM [facility] CALCIUM 9.4 8.9 - 10.3 mg/dL 02/06/2020 12:11 AM [facility] T BILI 0.4 <=1.2 mg/dL 02/06/2020 12:11 AM [facility] SGOT (AST) 14 <=40 U/L 02/06/2020 12:11 AM [facility] SGPT (ALT) 13 <=41 U/L 02/06/2020 12:11 AM [facility] ALKALINE PHOSPHATASE 65 40 - 130 U/L 02/06/2020 12:11 AM [facility] GFR, EST. NONAFRICAN 57(L) >=60 02/06/2020 12:11 AM [facility] GFR, EST. >60 >=60 020 12:11 AM [facility] Comment: Creatinine Clearance is the preferred criteria for selecting drug dose adjustments in renally impaired patients. ??The GFR is provided as additional pertinent clinical information. GFR is reported in mL/min/1.73 sq m. Blood Venous Catheter (IV) / Unknown 02/05/2020 11:15 PM CDT 02/05/2020 11:32 PM CDT us Azeem Chavez MD CHEMISTRY ORDERABLES Mariaa rosado Result [facility] [address] [place] [address] documented in this encounter Visit Diagnoses Not on filedocumented in this encounter Admitting Diagnoses Diagnosis Ureterolithiasis Calculus of ureter documented in this encounter Administered Medications Inactive Administered Medications - up to 3 most recent administrations Medication Order MAR Action Action Date Dose Rate Site 0.9 % sodium chloride solution at 100 mL/hr, Intravenous, CONTINUOUS, Starting on 02/06/20 at 0300, Until 02/08/20 at 1610 New Bag 02/08/2020 4:35 AM [...] taking oral intake without complications and both PO/WV orders are active, administer through the oral route. acetaminophen (TYLENOL) tablet 650 mg 650 mg, Oral, EVERY 4 HOURS PRN, Starting on 02/06/20 at 0219, Until 02/08/20 at 1610, Mild pain or more severe pain if patient requests, Fever, If patient is taking oral intake without complications and both PO/WV orders are active, administer through the oral [...] Given 02/08/2020 9:55 AM CDT 1 Tablet cetirizine (ZyrTEC) tablet 10 mg 10 mg, [...] AM CDT 40 mg Le ft Abdomen HYDROcodone-acetaminophen (NORCO) 5-325 MG per tablet 1-2 [...] 2) increasing dosage, or 3) changing to SPACE OPERATIONS. Given 02/08/2020 9:51 AM CDT 2 Tablets Given 02/07/2020 9:41 PM CDT 2 Tablets Given 02/07/2020 5:21 PM CDT 1 Tablet Iopamidol 61 % SOLN 30 mL 30 mL, Other, ONCE, 1 dose, On 02/06/20 at 1230, INTRA-OP Given 02/06/2020 12:33 PM CDT 8 mL Operative Site multiple vitami/antioxidants (CERTAVITE/ANTIOXIDANTS) tablet TABS 1 Tab [...] Tract Infection 0955 (Given - Provider: Roxanne iDop, GAY) cefTRIAXone (ROCEPHIN) injection 1 g (CANCELED) 1 [...] RN) 0823 (Given - Provider: Roxanne Diop, RN) enoxaparin (LOVENOX) injection 40 mg 40 mg, Subcutaneous, EVERY 24 HOURS SCHEDULED, First dose on 02/06/20 at 0900, Until Discontinued, Upon new order verification, pharmacy to adjust enoxaparin dose for creatinine clearance less than 30 mL/min 0818 (Given - Provider: Elan Gavin RN) 0802 (Given - Provider: Elan Gavin RN) 0823 (Given - Provider: Roxanne Diop, GAY) fentaNYL (PF) (SUBLIMAZE) injection 75 mcg (COMPLETED) 75 mcg, Intravenous, ONCE, 1 dose, On 02/06/20 at 0200 0154 (Given - Provider: Caryn Montano, GAY) Iopamidol 61 % SOLN 30 mL (COMPLETED) 30 mL, Other, ONCE, 1 dose, On 02/06/20 at 1230, INTRA-OP 1230 (Canceled Entry - Provider: Elan Gavin RN)1233 (Given - Provider: Elizabeth Alba MD) ketorolac (TORADOL) injection 30 mg (COMPLETED) 30 mg, Intravenous, ONCE, 1 dose, On 02/06/20 at 0030 0016 (Given - Provider: Caryn Montano, GAY) levoFLOXacin (LEVAQUIN) IV 750 mg (COMPLETED) 750 [...] 0823 (Given - Provider: Roxanne Diop RN) Continuous Medication Order 02/06/2020 02/07/2020 02/08/2020 0.9 [...] RN) 0435 (New Bag - Provider: Jessica Lackey RN)0800 (Stopped - Provider: Roxanne Diop RN) PRN Medication Order 02/06/2020 02/07/2020 02/08/2020 acetaminophen (TYLENOL) suppository 650 mg(Linked Group 1) 650 mg, Rectal, EVERY 4 HOURS PRN, Starting on 02/06/20 at 0219, Until 02/08/20 at 1610, Mild pain or more severe pain if patient requests, Fever, If patient is taking oral intake without complications and both PO/WV orders are active, administer through the oral [...] taking oral intake without complications and both PO/WV orders are active, administer through the oral route. 1530 (Given - Provider: Elan Gavin RN - Comment: For temp of 100.4, shaking per doctor curtis.) 0002 (Given - Provider: Sara Longoria GAY)1818 (Given - Provider: Elan Gavin RN) [...] 2) increasing dosage, or 3) changing to SPACE OPERATIONS. 0259 (Given - Provider: Ellen Fong RN)0749 (Given - Provider: Elan Gavin RN) 1324 (Given - Provider: Neetu Linda RN)1721 (Given - Provider: Elan Gavin RN)2141 (Given - Provider: Jessica Lackey, GAY) 0951 (Given - Provider: Roxanne Diop RN) ketorolac (TORADOL) injection 15 mg 15 mg, [...] 02/08/20 at 1610, Nausea - 1st line 0016 (Given - Provider: Caryn Montano RN) Linked Groups Order Group 1: acetaminophen (TYLENOL) tablet 650 mgJump to med 650 mg, Oral, EVERY 4 HOURS PRN, Starting on 02/06/20 at 0219, Until 02/08/20 at 1610, Mild pain or more severe pain if patient requests, Fever, If patient is taking oral intake without complications and both PO/WV orders are active, administer through the oral route. Or acetaminophen (TYLENOL) suppository 650 mgJump to med 650 mg, Rectal, EVERY 4 HOURS PRN, Starting on 02/06/20 at 0219, Until 02/08/20 at 1610, Mild pain or more severe pain if patient requests, Fever, If patient is taking oral intake without complications and both PO/WV orders are active, administer through the oral [...] medications. documented in this encounter Care Teams Modeling Manager Relationship Specialty Start Date End Date Fawn Romeo PAC [address] [place] [address] PCP - General Physician Work Car Operator 11/20/17 10/24/23 documented as of this encounter
--- OUTSIDE RECORDS SUMMARY | 2024-06-14 16:44 | XMS_ITS | Encounter Summary ---
Author Organization [facility] Address [address] [facility] [place] [address] Care Team Providers Care Deckhand Shrimp Boat Name Role Phone Unavailable Primary Care Provider Unavailabl e Reason for Visit * Auth/Cert Specialty Diagnoses / Procedures Referred By Alcira t Referred To Contact Procedures ESOPHAGOGASTRODUODENOSCOPY (EGD) DIAGNOSTIC COLONOSCOPY SCREEN Referral ID Status Reason Start Date Expiration Date Visits Re quested Visits Authorized [id number] 1 1 Encounter Details Date Type Department Care Team (Latest Contact Info) Description 03/14/2020 10:00 AM CDT - 03/14/2020 10:45 AM CDT Surgery [facility] - Endoscopy Services [address] [place] [address] [place] [address] [facility] [address] [place] [address] ESOPHAGOGASTRODUODENOSCOPY (EGD) DIAGNOSTIC Surgery Details Date/Time Status Location OR Service Patient Class Case Class Case Type Trauma Case? 03/14/2020 10:00 AM Posted [facility] 01 Gastroenterology Surgery Day Care Elective > 5 days Panel 1 Procedure LRB Anes Op Region Wound Class Comments ESOPHAGOGASTRODUODENOSCOPY ( EGD) DIAGNOSTIC MAC Clean Contaminated COLONOSCOPY SCREEN MAC Clean Conta minated Surgeon Surgeon Role Service Panel Rojas Zuniga MD Primary Gastroenterology 1 documented in this [...] AM CDT documented as of this encounter Last Filed Vital Signs Vital Sign Reading Time Taken Comments Blood Pressure 137/89 03/14/2020 10:02 AM CDT Pulse 80 03/14/2020 10:02 AM CDT Temperature 36.9 ??C (98.4 ??F) 03/14/2020 10:02 AM C DT Respiratory Rate 14 03/14/2020 10:02 AM CDT Oxygen Saturation 99% 03/14/2020 10:02 AM CDT Inhaled Oxygen Concentration - - Weight 90.3 kg (199 lb) 03/14/2020 9:18 AM CDT Height 185.4 cm (6' 1 ) 03/14/2020 9:18 AM CDT Body Mass Index 26.25 03/14/2020 9:18 AM CDT documented in this encounter Medications [...] 5,000 mcg by mouth once daily 04/04/2022 esomeprazole (NEXIUM) 20 MG capsule Take 40 mg by mouth 2 times daily 03/16/2020 documented as of this encounter H&P Notes * Rojas Zuniga MD - 03/14/2020 9:53 AM CDT ENDOSCOPY PRE-PROCEDURE MEDICAL HISTORY & PHYSICAL NOTE 03/14/2020 Samuel Sanchez 74 year old male Ht 1.854 m (6' 1 ) Wt 90.3 kg (199 lb) BMI 26.25 kg/m2 History: The patient is a 74 year old White/ male with past medical history of 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 Past Medical History: Diagnosis Date ??? Enlarged prostate ??? GERD (gastroesophageal reflux disease) ??? Kidney stones Past Surgical History: Procedure Laterality Date ??? BICEPS TENODESIS, SHOULDER Left ??? Orchiectomy testicle removed ??? Rotator Cuff Repair Right ??? Vasectomy Social History Tobacco Use ??? Smoking status: Never Smoker ??? Smokeless tobacco: Never Used Substance Use Topics ??? Alcohol use: Yes family history is not on file. Allergies Allergen Reactions ??? Hydrocodone Itching ??? Vicodin [Hydrocodone-Acetaminophen] Itching Medications Prior to Admission Medication Sig Dispense Refill ??? Biotin 5 MG TBDP Take 5,000 mcg by mouth once daily ??? esomeprazole (NEXIUM) 20 MG capsule Take 20 mg by mouth once daily ??? famotidine (PEPCID) 40 MG tablet Take 40 mg by mouth once daily ??? methotrexate 2.5 MG tablet Take 6 tablets by mouth every 7 days ??? Multiple Vitamins-Minerals (PRESERVISION AREDS 2) capsule Take 1 capsule by mouth 2 times daily ??? multivitamin daily (THERAGRAN) tablet Take 1 Tab by mouth once daily. 300 MG ??? tamsulosin (FLOMAX) 0.4 MG capsule Take 0.4 mg by mouth once daily Current Facility-Administered Medications Medication Dose Route Frequency Provider Last Rate Last Admin ??? 0.9% NaCl infusion Intravenous Continuous Rojas Zuniga MD Physical Exam: General appearance: alert, cooperative, no distress Heart: regular rhythm, normal S1 and S2, without murmurs, rubs or gallops Lungs: breath sounds normal and symmetric; no rales or wheezes Abdomen: soft without mass, non-tender, with normal bowel sounds Extremities: no clubbing, cyanosis or edema Sedation Plan: Anesthesia administered per Anesthesia Department Indication(s) for Procedure: Weight Loss Procedure Planned: Colonoscopy and EGD Rojas Zuniga MD documented in this encounter Plan of Treatment Scheduled Orders Name Type Priority Associated Diagnoses Orde r Schedule EGD GI Routine ONCE for 1 Occ urrences starting 03/14/2020 until 03/14/2020 ENDOSCOPY, COLON, DIAGNOSTIC GI Routine ONCE for 1 Occur rences starting 03/14/2020 until 03/14/2020 documented as of this encounter Procedures Procedure Name Priority Date/Time Associated Diagnosis Comments HELICOBACTER PYLORI UREASE (STL) STAT 03/14/2020 10:43 AM CDT Diagnosis unknown PATHOLOGY TISSUE EXAM (STL) Routine 03/14/2020 10:43 AM CDT Diagnosis unknown COLONOSCOPY SCREEN 03/14/2020 10 :00 AM CDT RI ED EGD FLEX TRANSORAL DX 03/14/2020 10:00 AM CDT ENDOSCOPY, COLON, SCREENING Routine 03/14/2020 9:53 AM CDT Abnormal weight loss Change in bowel function EGD Routine 03/14/2020 9:26 AM CDT documented in this encounter Results * HELICOBACTER PYLORI UREASE (STL) (03/14/2020 10:43 AM CDT) Helicobacter pylori Urease Initial Negative Negative 03/15/2020 4:43 PM CDT [facility] Helicobacter pylori Urease Final Negative Negative 03/15/2020 4:43 PM CDT [facility] Comment:This is an appended report. These results have been appended to a previously preliminary verified report. Microbiology GASTRIC ANTRAL BIOPSY SPECIMEN / Unknown 03/14/2020 10:43 AM CDT 03/14/2020 4:07 PM CDT Rojas Zuniga MD LAB - MICROBIOLOGY O RDERABLES [facility] [address] [place] [address] * PATHOLOGY TISSUE EXAM (STL) (03/14/2020 10:43 AM CDT) Case Report Surgical Pathology Report ? Case: [id number] ? Authorizing Provider: ??Rojas Zuniga MD ?Collected: ? 03/14/2020 10:43 AM ? Ordering Location: ? [facility] ?Received: ?03/14/2020 12:35 PM ? Pathologist: ? Hal, Sowmya, ? Specimens: ?? A) - Gastric Biopsy ? B) - Esophageal Biopsy ? C) - Polyp Ascending, hot snare x2 polyps, cold biopsy x3 polyps ? D) - Polyp Transverse, cold bx ? E) - Polyp Rectosigmoid, 2 polyps cold bx, 2 polyps hot snare ? 03/16/2020 10:00 AM CDT [facility] Final Diagnosis A. Gastric mucosa, biopsy: -- Mild vascular congestion B. Esophagus, biopsy: -- Positive for intestinal metaplasia, consistent with Pollard's esophagus -- Negative for dysplasia C. Ascending colon, polyp, biopsy: -- Tubular adenoma D. Transverse colon, polyp, biopsy: -- Tubular adenoma E. Rectal sigmoid colon, polyp, biopsy: -- Tubular adenoma -- Hyperplastic polyp 03/16/2020 10:00 AM CDT [facility] Clinical History History of abdominal pain. 03/16/2020 10:00 AM CDT [facility] Gross Description Received in formalin labeled with the patient? s name and, gastric biopsy, are five fragments of massey soft tissue measuring up to 3 mm. The specimen is submitted entirely in cassette A1. Received in formalin labeled with the patient? s name and, esophageal biopsy, are three fragments of massey tissue measuring up to 2 mm. The specimen is submitted entirely in cassette B1. Received in formalin labeled with the patient? s name and, ascending polyp, are multiple fragments of massey tissue measuring up to 4 mm. The specimen is submitted entirely in cassette C1. Received in formalin labeled with the patient? s name and, transverse polyp, are multiple fragments of massey tissue measuring up to 4 mm. The specimen is submitted entirely in cassette D1. Received in formalin labeled with the patient? s name and, rectosigmoid polyp, are fragments of massey tissue mixed with fecal material. They measures up to 3 mm. The specimen is submitted entirely in cassette E1. BLANCHE/awais 03/16/2020 10:00 AM CDT [facility] Microscopic Description A. Sections show fragments of gastric mucosa with mild vascular congestion. The histology is otherwise unremarkable. An immunostain for H pylori is negative. Controls are appropriate. B. Sections show fragments of esophageal squamous mucosa with focal mild chronic inflammation and intestinal metaplasia. A PAS and Alcian blue special stain is positive for goblet cells. Controls are judged appropriate. C to E. Sections reveal fragments of colonic mucosa with features of tubular adenoma. High-grade dysplasia or malignancy is not seen. Specimen E also shows hyperplastic polyp. 03/16/2020 10:00 AM CDT [facility] Disclaimer All histochemical and/or immunohistochemical results are interpreted with controls that demonstrate appropriate staining reactions before reporting results. Note on use of immunocytochemistry reagents: This test was developed and its performance characteristic determined by [facility], Department of Laboratory Medicine. It has [...] tissues. Results should be interpreted with caution. 03/16/2020 10:00 AM CDT [facility] Embedded Images 03/16/2020 10:00 AM CDT [facility] Pathology/Cytology GASTRIC BIOPSY SPECIMEN / Unknown 03/14/2020 10:43 AM CDT 03/14/2020 12:35 PM CDT Miscellaneous samples (specimen) ESOPHAGEAL BIOPSY SPECIMEN / Unknown 03/14/2020 10:54 AM CDT 03/14/2020 12:35 PM CDT Miscellaneous samples (specimen) POLYP / Unknown 03/14/2020 11:41 AM CDT 03/14/2020 12:35 PM CDT Miscellaneous samples (specimen) POLYP / Unknown 03/14/2020 11:41 AM CDT 03/14/2020 12:35 PM CDT Miscellaneous samples (specimen) POLYP / Unknown 03/14/2020 12:22 PM CDT 03/14/2020 12:35 PM CDT Rojas Zuniga MD LAB - PATHOLOGY/CYTO LOGY ORDERABLES [facility] [address] [place] [address] * ENDOSCOPY, COLON, SCREENING (03/14/2020 9:53 AM [...] Procedure Code(s): ? --- Professional --- ? 47907, Colonoscopy, flexible; with removal of tumor(s), polyp(s), or ? other lesion(s) by snare technique ? --- Technical --- ? 12460, Colonoscopy, flexible; with removal of tumor(s), polyp(s), [...] R10.84, Generalized abdominal pain CPT copyright 2017 [employer]. All rights reserved. The codes documented in this report are preliminary and upon building repair maintenance supervisor review may be revised to meet current compliance requirements. Dr. Rojas Zuniga M.D. Rojas Zuniga MD 03/14/2020 12:47:22 PM Number of Addenda: 0 Note Initiated On: 03/14/2020 9:53 AM [facility] 03/14/2020 9:53 AM CDT Zelda Batista APRN-VIGOUREUX PRINTER GI PROCEDURE OR DERABLES [facility] SUSIE Reyes [id number] * EGD (03/14/2020 9:26 AM CDT) Report Endoscopy POC __ _ Patient Name: Samuel Sanchez ?Procedure Date: 03/14/2020 9:26 AM ? Date of : 1945 ?Admit Type: Outpatient Age: 74 ? Gender: Male Attending MD: Rojas Znuiga MD ? __ _ Procedure: ? Upper [...] Procedure Code(s): ? --- Professional --- ? 05624, Esophagogastroduode noscopy, flexible, transoral; with biopsy, ? single or multiple ? --- Technical --- ? 77270, Esophagogastroduode noscopy, flexible, transoral; with biopsy, ? [...] R10.84, Generalized abdominal pain CPT copyright 2017 [employer]. All rights reserved. The codes documented in this report are preliminary and upon building repair maintenance supervisor review may be revised to meet current compliance requirements. Dr. Rojas Zuniga M.D. Rojas Zuniga MD 03/14/2020 12:32:00 PM Number of Addenda: 0 Note Initiated On: 03/14/2020 9:26 AM [facility] 03/14/2020 9:26 AM CDT Rojas Zuniga MD GI PROCEDURE ORDERAB LES [facility] [place] [address] documented in this encounter Visit Diagnoses Not on filedocumented in this encounter Administered Medications Inactive Administered Medications - up to 3 most recent administrations Medication Order MAR Action Action Date Dose Rate Site 0.9% NaCl infusion at 20 mL/hr, Intravenous, CONTINUOUS, Starting on Sat03/14/20 at 0945, Until Sat03/14/20 at 1435, Pre-procedure (GI) $ New Bag/Syringe 03/14/2020 11:14 AM CDT $ New Bag/Syringe 03/14/2020 10:03 AM CDT 20 mL /hr 0.9% NaCl injection 3 mL 3 mL, Intracatheter, PRE-PROCEDURE MULTIPLE, Starting on Sat03/14/20 at 0955, Until 03/14/20 at 1435, For Saline Lock flushes if one is inserted for Bronchoscopy/Endoscopy procedure., Pre-procedure (GI) documented in this encounter Active and Recently Administered Medications Times are shown in CDT. Scheduled Medication Order 03/12/2020 03/13/2020 03/14/2020 0.9% NaCl injection 3 mL 3 mL, Intracatheter, PRE-PROCEDURE MULTIPLE, Starting on 03/14/20 at 0955, Until 03/14/20 at 1435, For Saline Lock flushes if one is inserted for Bronchoscopy/Endoscopy procedure., Pre-procedure (GI) Continuous Medication Order 03/12/2020 03/13/2020 03/14/2020 0.9% NaCl infusion at 20 mL/hr, Intravenous, CONTINUOUS, Starting on Sat03/14/20 at 0945, Until Sat03/14/20 at 1435, Pre-procedure (GI) 1003 ($ New Bag/Syri nge - Provider: Francesca Dai RN)1114 ($ New Bag/Syringe - Provider: LIZANDRO Stevens)1221 (Anesthesia Volume Adjustment - Provider: LIZANDRO Stevens) documented in this encounter
--- OUTSIDE RECORDS SUMMARY | 2024-06-14 16:44 | XMS_ITS | Encounter Summary ---
Author Organization [facility] Address [address] [facility] [place] [address] Care Team Providers Care Customer Service Dispatcher Name Role Phone Unavailable Primary Care Provider Unavailabl e Reason for Referral * Radiology Services (Routine) - Closed Specialty Diagnoses / Procedures Referred By Contac t Referred To Contact CT Scan Diagnoses Abdominal pain, unspecified abdominal location Procedures CT ABDOMEN PELVIS [place]jas [place] [id number] [place] [address] [address] [place] [address] Referral ID Status Reason Start Date Expiration Date Visits Re quested Visits Authorized [id number] Closed 03/16/2020 03/16/2021 1 1 Encounter Details Date Type Department Care Team (Late st Contact Info) Description 03/16/2020 Orders Only [facility] [address] [facility] [address] [place] [address] [place] [address] [facility] [address] [place] [address] Abdominal pain, unspecified abdominal location Social History Tobacco Use Types Packs/Day Years [...] documented as of this encounter Results * CT ABDOMEN PELVIS [...] 12:[address] ORDERABLES documented in this encounter Visit Diagnoses Diagnosis Abdominal pain, unspecified abdominal location- Primary Abdominal pain, unspecified abdominal location documented in this encounter
--- OUTSIDE RECORDS SUMMARY | 2024-06-14 16:44 | XMS_ITS | Encounter Summary ---
Author Organization [facility] Address [address] [facility] [place] [address] Care Team Providers Care Applied Biology Professor Name Role Phone Unavailable Primary Care Provider Unavailabl e Encounter Details Date Type Department Care Team (Late st Contact Info) Description 06/05/2016 10:40 AM FINISH FILER - 06/05/2016 11:59 PM [facility] Hospital Encounter [facility] [address] [place] [address] [place] [address] [address] [facility] [address] [place] [address] Discharge Disposition: Home or Self Care Social [...] on file documented as of this encounter Medications at Time of Discharge Medication Sig Dispensed Refills Start Date End Date multivitamin daily (THERAGRAN) tablet Take 1 tablet by mouth once daily 300 MG aspirin 81 MG tablet once daily. 020 omeprazole (PRILOSEC) 20 MG capsule every morning. 03/11/2020 ranitidine (ZANTAC) 300 MG capsule Take 1 Cap by mouth at bedtime. 03/14/2020 SUMAtriptan (IMITREX) 100 MG tablet Take 1 Tab by mouth once as needed for Migraine 12 Tab 5 11/08/2015 03/14/2020 documented as of this encounter Plan of Treatment Not on file documented as of this encounter Procedures Procedure Name Priority Date/Time Associated Diagnosis Comments XR CHEST 2VW Routine 06/05/2016 10:58 AM FINISH FILER Rheumatoid arthritis involving multiple sites with positive rheumatoid factor (HCC) documented in this encounter Results * XR CHEST PA AND LATERAL (06/05/2016 10:58 AM FINISH FILER) Anatomical Region Laterality Modality Chest Radiographic Corin ging 06/05/2016 1:44 PM FINISH FILER Impressions 06/05/2016 1:44 PM FINISH FILER Clear lungs. Narrative 06/05/2016 1:44 PM FINISH FILER Chest x-ray 2 views. HISTORY: Rheumatoid arthritis. 2 views of the chest show normal heart size with normal vessels. Lungs are clear. Procedure Note Jeremy Lee MD - 06/05/2016 Chest x-ray 2 views. HISTORY: Rheumatoid arthritis. 2 views of the chest show normal heart size with normal vessels. Lungs are clear. IMPRESSION Clear lungs. Criss Blanco MD DIAGNOSTIC IMAGING O RDERABLES documented in this encounter Visit Diagnoses Diagnosis Rheumatoid arthritis involving multiple sites with positive rheumatoid factor (HCC) documented in this encounter
--- OUTSIDE RECORDS SUMMARY | 2024-06-14 16:44 | XMS_ITS | Encounter Summary ---
Author Organization [facility] Address [address] [place] [address] Care Team Providers Care Piling Cutter Name Role Phone Unavailable Primary Care Provider Unavailabl e Reason for Referral * Radiology Services (Routine) - Closed Specialty Diagnoses / Procedures Referred By Contac t Referred To Contact MRI Diagnoses Chronic midline low back pain without sciatica Procedures MRI LUMBAR SPINE WO CONTRAST Adilson Cutler PA-C Dept of Neurological Surgery [address] [facility] [address] [place] [phone] Referral ID Status Reason Start Date Expiration Date Visits Re quested Visits Authorized [id number] Closed 03/08/2020 03/08/2021 1 1 Reason for Visit * Radiology Services (Routine) - Closed Specialty Diagnoses / Procedures Referred By Contac t Referred To Contact MRI Diagnoses Chronic midline low back pain without sciatica Procedures MRI LUMBAR SPINE WO CONTRAST Adilson Cutler PA-C Dept of Neurological Surgery [address] [facility] [address] [place] [phone] Referral ID Status Reason Start Date Expiration Date Visits Re quested Visits Authorized [id number] Closed 03/08/2020 03/08/2021 1 1 Encounter Details Date Type Department Care Team ([facility] Contact Info) Description 03/18/2020 1:18 PM CDT - 03/18/2020 11:59 PM CDT Hospital Encounter [facility] Health [place] [address] [place] [address] Adilson Cutler PA-C Dept of Neurological Surgery [address] [place] [address] [address] [place] [address] Discharge Disposition: Home or Self Care Social [...] and supper 180 capsule 1 03/22/2020 08/29/2020 omeprazole (PRILOSEC) 40 MG capsule Please specify directions, refills and quantity 90 capsule 1 03/18/2020 03/22/2020 documented as of this encounter Plan of Treatment Not on file documented as of this encounter Procedures Procedure Name Priority Date/Time Associated Diagnosis Comments MRI LUMBAR SPINE WO CONTRAST Routine 03/18/2020 1:47 PM CDT Chronic midline low back pain without sciatica documented in this encounter Results * MRI LUMBAR SPINE [...] Diagnosis Chronic midline low back pain without sciatica documented in this encounter
--- OUTSIDE RECORDS SUMMARY | 2024-06-14 16:44 | XMS_ITS | Encounter Summary ---
Author Organization [employer] Care Team Providers Care Handwriting Expert Name Role Phone Viraj Romeo Primary Care Provider [phone] Encounter Details Date Type Department Care Team (Latest Contact Info) Description 11/29/2020 Travel Social History Tobacco Use Types Packs/Day [...] on filedocumented in this encounter Care Teams Handwriting Expert Relationship Specialty Start Date End Date Viraj Romeo PAC [address] [place] [address] PCP - General Physician Drill Press Set Up Operator 11/20/17 10/24/23 documented as of this encounter
--- OUTSIDE RECORDS SUMMARY | 2024-06-14 16:44 | XMS_ITS | Encounter Summary ---
Author Organization [facility] Address [address] [place] [address] Care Team Providers Care Verification Clerk Name Role Phone Unavailable Primary Care Provider Unavailabl e Reason for Visit * Reason Onset Date Comments MEDICATION REFILL 10/22/2012 Encounter Details Date Type Department Care Team (Late st Contact Info) Description 10/22/2012 Refill [facility] [address] [facility] [address] [place], [place] [id number] [place] [address] [address] [facility] [address] [place] [address] MEDICATION REFILL Social History Tobacco [...] encounter Miscellaneous Notes * Telephone Encounter - Earnestine Stephens RN - 10/23/2012 10:40 AM CDT The patient has been updated that his script has been filled and sent to his pharmacy. Earnestine Stephens RN 10/23/2012 10:41 AM * Telephone Encounter - Earnestine Stephens RN - 10/22/2012 10:57 AM CDT The patient is requesting a refill. Requested Prescriptions Pending Prescriptions Disp Refills ??? topiramate (TOPAMAX) 25 MG tablet 90 Tab 3 Sig: Take one tablet every other day. documented in this encounter Plan of Treatment Not on file documented as of this encounter Visit Diagnoses Not on filedocumented in this encounter
--- OUTSIDE RECORDS SUMMARY | 2024-06-14 16:44 | XMS_ITS | Encounter Summary ---
Author Organization [facility] Address [address] [facility] [place] [address] Care Team Providers Care Credit Portfolio Advisor Name Role Phone Unavailable Primary Care Provider Unavailabl e Reason for Visit * Reason Onset Date Comments Results 04/04/2020 Encounter Details Date Type Department Care Team (Late st Contact Info) Description 04/04/2020 Telephone [facility] [employer] [facility] [address] [facility], [address] [place] [address] [place] [address] [facility] [address] [place] [address] Results Social History Tobacco Use Types Packs/Day Years [...] COVID-19? No / Unsure 04/04/2020 8:21 AM INFECTION CONTROL NURSE documented as of this encounter Miscellaneous Notes * Telephone Encounter - Kyree Mondragon RN - 04/04/2020 8:22 AM CST Results given to pt, telemed scheduled. CTION CONTROL NURSE * Telephone Encounter - Kyree Mondragon RN - 04/04/2020 8:22 AM CST ----- Message from Rojas Zuniga MD sent at 04/02/2020 12:11 PM CDT ----- Pls let him know CT abdomen with contrast was negative. Please schedule for follow up with Zelda mcghee. Thank you. CTION CONTROL NURSE documented in this encounter Plan of Treatment Not on file documented as of this encounter Visit Diagnoses Not on filedocumented in this encounter
--- OUTSIDE RECORDS SUMMARY | 2024-06-14 16:44 | XMS_ITS | Encounter Summary ---
Author Organization [facility] Address [address] [place] [address] Care Team Providers Care Adjunct Professor Of English Name Role Phone Unavailable Primary Care Provider Unavailabl e Encounter Details Date Type Department Care Team (Late st Contact Info) Description 04/07/2020 Therapy Visit [facility] [address] [place] [address] Adilson Cutler, PAAutumnC Dept of Neurological Surgery [address] [facility] [address] [place] [id number] Social History Tobacco Use Types Packs/Day Years [...] COVID-19? No / Unsure 04/04/2020 8:21 AM RECRUITMENT OFFICER documented as of this encounter Plan of Treatment Not on file documented as of this encounter Visit Diagnoses Not on filedocumented in this encounter
--- OUTSIDE RECORDS SUMMARY | 2024-06-14 16:44 | XMS_ITS | Encounter Summary ---
Author Organization [facility] Address [address] [facility] [place] [address] Care Team Providers Care Crystal Grower Name Role Phone Unavailable Primary Care Provider Unavailabl e Reason for Visit * Auth/Cert Specialty Diagnoses / Procedures Referred By Contac t Referred To Contact Procedures ESOPHAGOGASTRODUODENOSCOPY (EGD) DIAGNOSTIC COLONOSCOPY SCREEN Referral ID Status Reason Start Date Expiration Date Visits Re quested Visits Authorized [id number] 1 1 Encounter Details Date Type Department Care Team (Late st Contact Info) Description 03/14/2020 10:31 AM CDT Anesthesia Event [facility] [address] [place] [address] Samuel Mcdermott MD [address] [facility] [address] [place] [address] Aixa Wade APRN-WIPING RAG WASHER [address] [facility] [address] [place] [address] Anesthesia Record Procedure Summary Procedure Name Responsible Anesthesiologist Anesthesia Start Time Anesthesia Stop Time ESOPHAGOGASTRODUODENOSCOPY ( EGD) DIAGNOSTIC Samuel Mcdermott MD 03/14/20 1031 03/14/20 1223 Events Date Time Event Comment 03/14/2020 1024 1031 An Start 1031 Out OR Start Data 1032 Timeout Anesthesia part icipated in timeout at the time documented in the record by nursing. 1033 PT Reassessment 1223 Electnc Sig 1223 Out OR Stop Data 1223 An Stop Meds Name Total lidocaine 2% (PF) injection (20 mg/mL) 1 00 mg glucagon (diagnostic) 1 mg injection 1.5 mg propofol (DIPRIVAN) injection 10mg/ml (E NDO USE) 80 mL 0.9% NaCl infusion 900 mL * Agents Name Exp. N2O O2 * Blood No blood administrations on file. Lines, Drains, and Airways Type Details Placement Removal Peripheral IV Date: 03/14/20; Time : 1003; Orientation: Right; Placed By: Ty Dai RN; Tolerance: Well 03/14/20 1003 by Francesca Dai RN 03/14/20 1308 by Shereen Sanchez RN documented in this encounter Social History [...] as of this encounter Progress Notes * Aixa Wade, SUPERVISOR SEWER MAINTENANCE-WIPING RAG WASHER - 03/14/2020 12:24 PM CDT ANESTHESIA POSTOP EVALUATION NOTE Procedure: ESOPHAGOGASTRODUODENOSCOPY (EGD) DIAGNOSTIC COLONOSCOPY SCREEN Samuel Sanchez is a 74 year old male Patient Vitals for the past 6 hrs: BP Temp Pulse Resp SpO2 Pain Scale/Observation 03/14/20 0918 -- -- -- -- -- No/denies pain 03/14/20 1002 137/89 98.4 ??F (36.9 ??C) 80 14 99 % -- 03/14/20 1113 -- -- -- -- 97 % -- 03/14/20 1116 94/62 -- -- -- -- -- 03/14/20 1118 -- -- -- -- 97 % -- 03/14/20 1120 98/74 -- -- -- -- -- 03/14/20 1123 -- -- -- -- 98 % -- 03/14/20 1126 95/69 -- -- -- -- -- 03/14/20 1128 -- -- -- -- 98 % -- 03/14/20 1131 102/72 -- -- -- -- -- 03/14/20 1133 -- -- -- -- 98 % -- 03/14/20 1136 102/78 -- -- -- -- -- 03/14/20 1138 -- -- -- -- 99 % -- 03/14/20 1140 104/71 -- -- -- -- -- 03/14/20 114 -- -- -- -- 100 % -- 03/14/20 1145 115/81 -- -- -- -- -- 03/14/20 1148 -- -- -- -- 100 % -- 03/14/20 1151 111/75 -- -- -- -- -- 03/14/20 1153 -- -- -- -- 100 % -- 03/14/20 1156 119/83 -- -- -- -- -- 03/14/20 115 -- -- -- -- 100 % -- 03/14/20 1201 103/75 -- -- -- -- -- 03/14/20 1203 -- -- -- -- 100 % -- 03/14/20 1205 109/70 -- -- -- -- -- 03/14/20 1208 -- -- -- -- 100 % -- 03/14/20 1210 127/79 -- -- -- -- -- 03/14/20 1213 -- -- -- -- 100 % -- 03/14/20 1216 105/75 -- -- -- -- -- 03/14/20 1218 -- -- -- -- 100 % -- 03/14/20 1220 106/79 -- -- -- -- -- 03/14/20 1223 -- -- -- -- 100 % -- Anesthesia Type: MAC * No Diagnosis Codes entered * Mental Status: awake and sufficiently recovered from acute administration of anesthesia to participate in the evaluation Neuro Status: No numbness, tingling or visual disturbances Respiratory Function: natural Cardiac Function: stable Postop Pain: acceptable to the patient Postop Hydration: adequate Postop Nausea: none Assessment: no apparent anesthetic complications, patient tolerated procedure well and no evidence of recall Patient Disposition: Release from Anesthesia Care COMPLICATIONS: No complications documented. * Aixa Wade APRN-MARKO - 03/14/2020 10:23 AM CDT ANESTHESIA PREOPERATIVE EVALUATION NOTE Procedure: ESOPHAGOGASTRODUODENOSCOPY (EGD) DIAGNOSTIC COLONOSCOPY SCREEN NPO status: Since Midnight (03/14/2020 9:20 AM) Vitals: Patient Vitals for the past 6 hrs: BP Temp Pulse Resp SpO2 03/14/20 1002 137/89 98.4 ??F (36.9 ??C) 80 14 99 % ANESTHESIA PRE-EVALUATION NOTE Physical Exam: Orientation X3 Airway/Mallampati Score: II Mouth Opening Distance: 3 fingerwidths Neck ROM: full TM Distance: > 3 FB Teeth: normal Heart: normal - S1 S2 Lungs: clear to ausculation bilaterally Abdomen Exam: normal Review of Systems: History of anesthetic complications: No Malignant Hyperthermia: No GERD: Yes, well controlled Poor Exercise Tolerance: No Recent Chest Pain: No Shortness of Breath: No AICD/Pacemaker: No Renal Disease: No ANESTHESIA PLAN ASA Score: 2 NPO Status: No solids since midnight and No liquids within 2 hours Anesthesia Plan: MAC Planned Induction: intravenous Planned Postop Destination: endo Anesthetic plan was discussed with: patient Anesthetic Plan discussion was: Consented The patient's procedural Anesthetic Plan was discussed with the WIPING RAG WASHER. BMI, Height, Weight Tobacco History Estimated body mass index is 26.25 kg/m?? as calculated from the following: Height as of this encounter: 1.854 m (6' 1 ). Weight as of this encounter: 90.3 kg (199 lb). Social History Tobacco Use Smoking Status Never Smoker Smokeless Tobacco Never Used Alcohol History Drug History Social History Substance and Sexual Activity Alcohol Use Yes Social History Substance and Sexual Activity Drug Use Never Outpatient Medications: Inpatient Medications: Outpatient Medications Marked as Taking for the 03/14/20 encounter (Hospital Encounter) Medication Sig Last Dose ??? Biotin Take 5,000 mcg by mouth once daily 03/13/2020 at Unknown time ??? esomeprazole Take 20 mg by mouth once daily 03/13/2020 at Unknown time ??? famotidine Take 40 mg by mouth once daily 03/13/2020 at Unknown time ??? methotrexate Take 6 tablets by mouth every 7 days 03/13/2020 at Unknown time ??? PRESERVISION AREDS 2 Take 1 capsule by mouth 2 times daily 03/13/2020 at Unknown time ??? multivitamin daily Take 1 Tab by mouth once daily. 300 MG 03/13/2020 at Unknown time ??? tamsulosin Take 0.4 mg by mouth once daily 03/13/2020 at Unknown time Current Facility-Administered Medications Medication Dose Last Admin ??? 0.9% NaCl IV New Bag at 03/14/20 1003 ??? 0.9% NaCl 3 mL Allergies: Allergies Allergen Reactions ??? Hydrocodone Itching ??? Vicodin [Hydrocodone-Acetaminophen] Itching Relevant Problems No relevant active problems Problem [...] ??? Rotator Cuff Repair Right ??? Vasectomy Lab Results: Invalid input(s): OSMOLAITY Invalid input(s): PREGTESTUR Invalid input(s): ANIONAPART, PREALBIUMIN, [id number] documented in this encounter Miscellaneous Notes * Anesthesia Transfer of Care - Aixa Wade, SUPERVISOR SEWER MAINTENANCE-WIPING RAG WASHER - 03/14/2020 12:24 PM CDT ANESTHESIA TRANSFER OF CARE NOTE Today's Date: 03/14/2020 Date of : 1945 Patient: Samuel Sanchez Procedure(s): ESOPHAGOGASTRODUODENOSCOPY (EGD) DIAGNOSTIC COLONOSCOPY SCREEN Surgeon(s): Primary: Rojas Zuniga MD Preop Diagnosis: * No Diagnosis Codes entered * Pre-op Meds (From admission, onward) Start Stop Status Route Frequency Ordered 03/14/20944 0.9% NaCl infusion -- Dispensed IV CONTINUOUS 03/14/2090803/14/20954 0.9% NaCl injection 3 mL -- Dispensed IK PRE-PROCEDURE MULTIPLE 03/14/20954 * No Diagnosis Codes entered * . Allergies Allergen Reactions ??? Hydrocodone Itching ??? Vicodin [Hydrocodone-Acetaminophen] Itching Vitals: Patient Vitals for the past 3 hrs: BP Temp Pulse Resp SpO2 03/14/20 1223 -- -- -- -- 100 % 03/14/20 1220 106/79 -- -- -- -- 03/14/20 1218 -- -- -- -- 100 % 03/14/20 1216 105/75 -- -- -- -- 03/14/20 1213 -- -- -- -- 100 % 03/14/20 1210 127/79 -- -- -- -- 03/14/20 1208 -- -- -- -- 100 % 03/14/20 1205 109/70 -- -- -- -- 03/14/20 1203 -- -- -- -- 100 % 03/14/20 1201 103/75 -- -- -- -- 03/14/20 1158 -- -- -- -- 100 % 03/14/20 1156 119/83 -- -- -- -- 03/14/20 1153 -- -- -- -- 100 % 03/14/20 1151 111/75 -- -- -- -- 03/14/20 1148 -- -- -- -- 100 % 03/14/20 1145 115/81 -- -- -- -- 03/14/20 1143 -- -- -- -- 100 % 03/14/20 1140 104/71 -- -- -- -- 03/14/20 1138 -- -- -- -- 99 % 03/14/20 1136 102/78 -- -- -- -- 03/14/20 1133 -- -- -- -- 98 % 03/14/20 1131 102/72 -- -- -- -- 03/14/20 1128 -- -- -- -- 98 % 03/14/20 1126 95/69 -- -- -- -- 03/14/20 1123 -- -- -- -- 98 % 03/14/20 1120 98/74 -- -- -- -- 03/14/20 1118 -- -- -- -- 97 % 03/14/20 1116 94/62 -- -- -- -- 03/14/20 1113 -- -- -- -- 97 % 03/14/20 1002 137/89 98.4 ??F (36.9 ??C) 80 14 99 % Lines, Drains, and Airways Type Details Placement Removal Peripheral IV Date: 03/14/20; Time: 1002; Orientation: Right; Location: Hand; Placed By: Ty Dai RN; Gauge: 22 Gauge ; Locals: None; Tolerance: Well 03/14/20 100 by Francesca Dai RN Intraprocedure I/O Totals Intake propofol (DIPRIVAN) injection 10mg/ml (ENDO USE) 80.00 mL 0.9% NaCl infusion 900.00 mL Total Intake 980 mL Patient Transfer Location: Endo Recovery Transport Airway: spontaneous respirations Complications: None Handoff Given? Yes [...] of report from the receiving PACUteam. LIZANDRO Stevens documented in this encounter Plan of Treatment [...] 03/14/2020 10:03 AM CDT 20 mL /hr glucagon (diagnostic) injection PRN, Starting on Sat03/14/20 at 1131, Until Sat03/14/20 at 1223, Anesthesia Intra-op $ Given 03/14/2020 12:05 PM CDT 0.5 mg $ Given 03/14/2020 11:42 AM CDT 0.5 mg $ Given 03/14/2020 11:31 AM CDT 0.5 mg lidocaine hcl (PF) (XYLOCAINE MPF) 2 % injection PRN, Starting on Sat03/14/20 at 1033, Until Sat03/14/20 at 1223, Anesthesia Intra-op $ Given 03/14/2020 10:33 AM CDT 100 mg propofol (DIPRIVAN) injection CONTINUOUS PRN, Starting on Sat03/14/20 at 1033, Until Sat03/14/20 at 1223, Anesthesia Intra-op $ New Bag/Syringe 03/14/2020 10:33 AM CDT documented in this encounter
--- OUTSIDE RECORDS SUMMARY | 2024-06-14 16:44 | XMS_ITS | Encounter Summary ---
Author Organization [facility] Address [address] [facility] [place] [address] Care Team Providers Care Oral And Maxillofacial Surgery Resident Name Role Phone Unavailable Primary Care Provider Unavailabl e Reason for Referral * Procedure (Routine) - Closed Specialty Diagnoses / Procedures Referred By Alcira forrest Referred To Contact Gastroenterology Diagnoses Abnormal weight loss Change in bowel function Procedures ENDOSCOPY, COLON, SCREENING Zelda Batista, THAO-ALICIA [address] [facility] [address] [place] [address] Referral ID Status Reason Start Date Expiration Date Visits Re quested Visits Authorized [id number] Closed 03/11/2020 03/11/2021 1 1 Reason for Visit * Auth/Cert Specialty Diagnoses / Procedures Referred By Alicra forrest Referred To Contact Procedures ESOPHAGOGASTRODUODENOSCOPY (EGD) DIAGNOSTIC COLONOSCOPY SCREEN Referral ID Status Reason Start Date Expiration Date Visits Re quested Visits Authorized [id number] 1 1 Encounter Details Date Type Department Care Team (Latest Contact Info) Description 03/14/2020 8:53 AM CDT - 03/14/2020 1:35 PM CDT Hospital Encounter [facility] - Endoscopy Services [address] [place] [address] [place] [address] [facility] [address] [place] [address] Surgery General Discharge Disposition: Home or Self [...] Sign Reading Time Taken Comments Blood Pressure 129/85 03/14/2020 12:57 PM CDT Pulse 57 03/14/2020 12:57 PM CDT Temperature 35.9 ??C (96.7 ??F) 03/14/2020 12:31 PM C DT Respiratory Rate 16 03/14/2020 12:57 PM CDT Oxygen Saturation 92% 03/14/2020 12:57 PM CDT Inhaled Oxygen Concentration - - [...] MEDICAL HISTORY & PHYSICAL NOTE 03/14/2020 Samuel Duinkman 74 year old male Ht 1.854 m [...] COLONOSCOPY SCREEN 03/14/2020 10 :00 AM CDT [facility] EGD FLEX TRANSORAL DX 03/14/2020 10:00 AM CDT ENDOSCOPY, COLON, SCREENING Routine 03/14/2020 9:53 AM CDT Abnormal weight loss Change in bowel function EGD Routine 03/14/2020 9:26 AM CDT documented in this encounter Results * HELICOBACTER PYLORI UREASE (STL) (03/14/2020 10:43 AM CDT) Helicobacter pylori Urease Initial Negative Negative 03/15/2020 4:43 PM CDT [facility] Helicobacter pylori Urease Final Negative Negative 03/15/2020 4:43 PM CDT [facility] Comment:This is an appended report. These results have been appended to a previously preliminary verified report. Microbiology GASTRIC ANTRAL BIOPSY SPECIMEN / Unknown 03/14/2020 10:43 AM CDT 03/14/2020 4:07 PM CDT Rojas Zuniga MD LAB - MICROBIOLOGY O RDERABLES [facility] [address] [facility] [place] [address] * PATHOLOGY TISSUE EXAM (STL) (03/14/2020 10:43 AM CDT) Case Report Surgical Pathology Report ? Case: [id number] ? Authorizing Provider: ??Rojas Zuniga MD ?Collected: ? 03/14/2020 10:43 AM ? Ordering Location: ? [facility] ?Received: ?03/14/2020 12:35 PM ? Pathologist: ? Sowmya Hong MD ? Specimens: ?? A) - Gastric Biopsy [...] also shows hyperplastic polyp. 03/16/2020 10:00 AM T [facility] Disclaimer All histochemical and/or immunohistochemical results are interpreted with controls that demonstrate appropriate staining reactions before reporting results. Note on use of immunocytochemistry reagents: This test was developed and its performance characteristic determined by [facility], Department of Laboratory Medicine. It has not [...] be interpreted with caution. 03/16/2020 10:00 AM T [facility] Embedded Images 03/16/2020 10:00 AM T [facility] Pathology/Cytology GASTRIC BIOPSY SPECIMEN / Unknown [...] Zuniga MD LAB - PATHOLOGY/CYTO LOGY ORDERABLES [facility] [address] [facility] [place] [address] * ENDOSCOPY, COLON, SCREENING (03/14/2020 9:53 AM [...] Procedure Code(s): ? --- Professional --- ? 85359, Colonoscopy, flexible; with removal of tumor(s), polyp(s), or ? other lesion(s) by snare technique ? --- Technical --- ? 67512, Colonoscopy, flexible; with removal of tumor(s), polyp(s), [...] R10.84, Generalized abdominal pain CPT copyright 2017 [employer]. All rights reserved. The codes documented in this report are preliminary and upon dye maker review may be revised to meet current compliance requirements. Dr. Rojas Zuniga M.D. Rojas Zuniga MD 03/14/2020 12:47:22 PM Number of Addenda: 0 Note Initiated On: 03/14/2020 9:53 AM [facility] 03/14/2020 9:53 AM CDT Zelda Batista COFFIN MAKER-RESEARCH ADVISOR GI PROCEDURE OR DERABLES [facility] [place] [address] * EGD (03/14/2020 9:26 AM CDT) Report [...] Procedure Code(s): ? --- Professional --- ? 00680, Esophagogastroduode noscopy, flexible, transoral; with biopsy, ? single or multiple ? --- Technical --- ? 27490, Esophagogastroduode noscopy, flexible, transoral; with biopsy, ? [...] R10.84, Generalized abdominal pain CPT copyright 2017 [employer]. All rights reserved. The codes documented in this report are preliminary and upon dye maker review may be revised to meet current compliance requirements. Dr. Rojas Zuniga M.D. Rojas Zuinga MD 03/14/2020 12:32:00 PM Number of Addenda: 0 Note Initiated On: 03/14/2020 9:26 AM [facility] 03/14/2020 9:26 AM CDT Rojas Zuniga MD GI PROCEDURE ORDERAB LES [facility] [place] [address] documented in this encounter Visit Diagnoses Diagnosis Abnormal weight loss Loss of weight Change in bowel function Other symptoms involving digestive system Diagnosis unknown Other unknown and unspecified cause of morbidity or mortality documented in this encounter Administered Medications Inactive Administered Medications - up to 3 most recent administrations Medication Order MAR Action Action Date Dose Rate Site 0.9% NaCl infusion at 20 mL/hr, Intravenous, CONTINUOUS, Starting on 03/14/20 at 0945, Until 03/14/20 at 1435, Pre-procedure (GI) $ New Bag/Syringe [...] at 20 mL/hr, Intravenous, CONTINUOUS, Starting on 03/14/20 at 0945, Until 03/14/20 at 1435, Pre-procedure (GI) 1003 ($ New Bag/Syri nge - Provider: Francesca Dai RN)1114 ($ New Bag/Syringe - Provider: LIZANDRO Stevens)1221 (Anesthesia Volume Adjustment - Provider: LIZANDRO Stevens) documented in this encounter
--- OUTSIDE RECORDS SUMMARY | 2024-06-14 16:44 | XMS_ITS | Encounter Summary ---
Author Organization [facility] Address [address] [facility] [place] [address] Phone Care Team Providers Care Language Arts Teacher Name Role Phone Viraj Romeo Primary Care Provider [phone] Reason for Referral * Radiology Services (Routine) - Closed Specialty Diagnoses / Procedures Referred By Alcira forrest Referred To Contact Radiology Diagnoses Ureterolithiasis Procedures US RENAL COMPLETE Elizabeth Alba MD Phone: tel: fax: Referral ID Status Reason Start Date Expiration Date Visits Re quested Visits Authorized [id number] Closed 02/06/2020 1 1 Reason for Visit * Radiology Services (Routine) - Closed Specialty Diagnoses / Procedures Referred By Alcira forrest Referred To Contact Radiology Diagnoses Ureterolithiasis Procedures US RENAL COMPLETE Elizabeth Alba MD Phone: tel: fax: Referral ID Status Reason Start Date Expiration Date Visits Re quested Visits Authorized [id number] Closed 02/06/2020 1 1 Encounter Details Date Type Department Care Team (Latest Contact Info) Description 02/12/2020 11:22 AM CDT - 02/12/2020 11:59 PM CDT Hospital Encounter [facility] Ultrasound [address] [place] [address] Elizabeth Alba MD [address] [facility] [address] [place] [address] Discharge Disposition: Discharged to home or Selfcare [...] Urinary Tract Infection 10 Tab 02/08/2020 0 documented as of this encounter Plan of Treatment Not on file documented as of this encounter Procedures Procedure Name Priority Date/Time Associated Diagnosis Comments US RENAL COMPLETE Routine 02/12/2020 11:38 AM CDT Right Ureterolithiasis with severe hydroureteronephrosis documented in this encounter Results * US [...] PM T: ??02/12/2020 3:34 PM Report ID: [id number] Reading Location: ??[id number] Procedure Note Sulaiman Gar MD - 02/12/2020 [...] by Sulaiman Gar M.D. JR: Report ID: [id number] Reading Location: [id number] IMPRESSION: 1. Mild right pelviectasis. This is similar to the ultrasound from 02/16/2011, with improved hydronephrosis compared with CT dated 02/05/2020. 2. Moderate left hydronephrosis. Elizabeth Alba MD [facility] [place]LES Final Res ult documented in this encounter Visit Diagnoses Diagnosis Right Ureterolithiasis with severe hydroureteronephrosis Calculus of ureter documented in this encounter Care Teams Language Arts Teacher Relationship Specialty Start Date End Date Viraj Romeo, PAC [address] [place] [id number] PCP - General Physician Theatre Director 11/20/17 10/24/23 documented as of this encounter
--- OUTSIDE RECORDS SUMMARY | 2024-06-14 16:44 | XMS_ITS | Encounter Summary ---
Author Organization [facility] Address [address] [place] [address] Care Team Providers Care Global Creative Chairman Name Role Phone Unavailable Primary Care Provider Unavailabl e Reason for Visit * Reason Onset Date Comments Letter 08/11/2012 Encounter Details Date Type Department Care Team (Late st Contact Info) Description 08/11/2012 Telephone [facility] Neurosciences [address] [place], [place] [id number] [place] [address] [facility] [address] [place] [address] Letter Social History Tobacco Use Types Packs/Day Years [...] encounter Miscellaneous Notes * Telephone Encounter - Adam Dickerson - 08/12/2012 9:14 AM CDT Letter has been typed and faxed. * Telephone Encounter - Lui Ledesma MD - 08/11/2012 5:26 PM CDT Please type it up, thx * Telephone Encounter - Adam Dickerson - 08/11/2012 4:21 PM CDT Pt called and requested a letter stating that the medication you have him on (Topamax) is for his headaches and not for seizures. Letter is to be faxed to [phone] attention Gordy Ramires. documented in this encounter Plan of Treatment Not on file documented as of this encounter Visit Diagnoses Not on filedocumented in this encounter
--- OUTSIDE RECORDS SUMMARY | 2024-06-14 16:45 | XMS_ITS | Referral Summary ---
Author Organization [facility] Address [address] [place] [address] Care Team Providers Care Roster Clerk Name Role Phone Criss Blanco MD Unavailable Lashay Downs RN Unavailable Unavailab Duke Goodwin RN Unavailable UnavailNgozi Husain MD Unavailable [phone] Jose Roberto Marx MD Unavailable [phone] Grey Tomas MD Primary Care Provider [phone] Allergies Active Allergy Reactions Criticality Noted Date Comments Amoxicillin-Pot Clavulanate Dizziness Low 02/02/20 23 Cat Dander Eye irritation Low 12/20/2020 Hydrocodone Itching Low Mold Unknown 12/20/2020 Perfume Swelling,Cough,Short ness of breath High 04/02/2018 Hydrocodone-Acetaminophen Itching Low Medications vit A/vit C/vit E/zinc/copper (PRESERVISION AREDS ORAL) Take 1 capsule by mouth 2 (two) times a day Active multivitamin capsuleIndicatio ns:Vitamin Deficiency Prevention Take 1 capsule by mouth every morning Active finasteride (PROSCAR) 5 mg tabletIndication s:benign prostatic hyperplasia with lower urinary tract sx Take 1 tablet (5 mg total) 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 Active omeprazole (PriLOSEC) 40 mg capsule Take 1 capsule (40 mg total) by mouth every morning 3 Active topiramate (TOPAMAX) 25 mg tablet Take 2 tablets (50 mg total) by mouth daily 4 Active fexofenadine (Hui Allergy) 180 mg tablet Take 1 tablet (180 mg total) by mouth daily 4 Active promethazine-DM (PROMETHAZINE-DM ) 1.25-3 mg/mL syrupIndications :Cough Take 5-10 mL by mouth 4 (four) times a day as needed for cough 240 mL 4 Active Additional Information Patient not taking.Reported on 01/08/2024 albuterol HFA (PROVENTIL HFA,VENTOLIN HFA,PROAIR HFA) 90 mcg/actuation inhaler Inhale 2 puffs every 4 (four) hours as needed 4 Active famotidine (PEPCID) 40 mg tabletIndication s:Gastroesophage al reflux disease without esophagitis Take 1 tablet (40 mg total) by mouth daily 30 tablet 11 4 11/26/19 Active Active Problems Problem Noted Date Diagnosed Date Non-seasonal allergic rhinitis 11/26/2023 Assessment & Plan (11/26/2023 3:48 PM CDT): Continue montelukast 10 mg once daily OTC antihistamine daily Avoid triggers Saline nasal rinses Subdural hematoma 02/05/2023 Chronic panethmoidal sinusitis 01/31/2023 SDH (subdural hematoma) 07/01/2022 Dysplasia of larynx 05/01/2022 Overview (05/01/2022): Added automatically from request for surgery [id number] Lesion of vocal fold 04/25/2022 Overview (04/25/2022): Added automatically from request for surgery [id number] Adenomatous polyp of colon 04/04/2022 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 daily We have discussed the relationship between chronic uncontrolled GERD and symptoms such as cough, wheezing, dyspnea. Elevate head of bed while sleeping Avoid tight clothing Avoid eating 2-3 hours before bed Avoid trigger foods I have strongly encouraged him to establish with GI Lumbar facet arthropathy 12/05/2021 Chronic bilateral low back pain without sciatica 12/05/2021 Chronic migraine without aur a without status migrainosus, not intractable 08/03/2021 Dysphonia 10/06/2019 Assessment & Plan (10/06/2019 2:08 PM CDT): Stable dysphonia. Secondary to post-surgical change and some mild muscle tension. 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 Continue routine surveillance. Assessment & Plan (04/18/2021 11:46 AM OPERATIONS MANAGER ASSISTANT): No evidence of disease today. However he does report significant unintentional weight loss. Recommend colonoscopy and urgent follow-up with PCP for further workup of this. Follow-up in 4 months or sooner if concerns. Assessment & Plan (02/21/2021 10:41 AM CDT): No evidence of disease on examination today. Continue routine surveillance. Assessment & Plan (12/20/2020 9:47 AM CDT): No evidence of disease on examination today. Continue routine surveillance. Assessment & Plan (10/27/2020 9:51 AM CDT): No evidence of disease on examination today. Continue routine surveillance. Assessment & Plan (10/04/2020 10:08 AM CDT): 75 yo M with a h/o [id number] TVC SCCA s/p KTP laser, presenting with new right TVC lesions concerning for malignancy. Plan to proceed to the OR for biopsy and laser treatment of the new right TVC lesions. Assessment & Plan (08/09/2020 3:55 PM OPERATIONS MANAGER ASSISTANT): No evidence of disease on examination today. Continue routine surveillance. Assessment & Plan (05/20/2020 10:03 AM OPERATIONS MANAGER ASSISTANT): No evidence of disease on examination today. Continue routine surveillance. 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 I discussed with the patient that he may very likely have a field of dysplasia or carcinoma in situ as the result of his prior heavy smoking history. I discussed with him options to include proceeding with radiation verses continued ablation with the KTP laser. He very much wants to continue to avoid radiation if at all possible, and so I have recommended proceeding with flexible laryngoscopy with KTP ablation. We also discussed that if there is worsening of disease over time, and not just small areas of leukoplakia that developed, he should really consider the possibility of radiation. Assessment & Plan (12/08/2019 2:59 PM CDT): No evidence of disease on examination today. Continue routine surveillance. Assessment & Plan (10/06/2019 2:07 PM CDT): No evidence of disease on examination today. Continue routine surveillance. Assessment & Plan (06/23/2019 11:47 AM OPERATIONS MANAGER ASSISTANT): His larynx looks clean after KTP laser treatment. 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 I would like to continue routine observation every 8 weeks. 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 I have recommended flexible laryngoscopy with KTP laser photoablation for the treatment of the patient's disease. We discussed that this would be done awake and with the use of local anesthetics. The risks and benefits of the procedure, including but not limited to, epistaxis, discomfort during the anesthetization and treatment, temporary worsening of voice, and the need for future procedures were discussed. The patient agrees and wishes to proceed. Assessment & Plan (04/07/2019 1:25 PM OPERATIONS MANAGER ASSISTANT): There are 2 small punctate areas of leukoplakia on the anterior free edge of the right true vocal fold. We discussed that his last pathology reports shows some CIS at that anterior margin even though the tissue had appeared grossly normal. For now, I have recommended observation given its proximity to the anterior commissure and the previous good response he's had to the laser. We will check again in 6 weeks. Assessment & Plan (02/05/2019 4:47 PM CDT): We discussed the options of therapy for this early stage glottic cancer. We discussed that radiation and surgery are both oncologically sound therapies for this cancer. In terms of surgery, we discussed the risks including permanent voice change, need for re-resection in the case of possible margins as well as benefits including the advantage of a single outpatient operation, less damage to surrounding structures, and preserving radiation as a treatment option in the case of recurrence. All questions were answered. He would like to think about his options before committing to radiation or surgery. Perianal dermatitis 10/14/2018 Dyspepsia 07/01/2018 Assessment & Plan (07/01/2018 2:08 PM OPERATIONS MANAGER ASSISTANT): Lifelong 'upset stomachj this relieved by adding 2 nocturnal rolaids to his regimen of omeprazol 20 in am and zantac 300HS. EGD abnd colon 2012 normal. Also c/o urgent loose stools after large meal. Diet coffee in the morn, lunch maybe and dinner frozen or instnt. Advised trial of better acid suppression with nexium 40 in am and 20 hs, Increase fibe with fruit tid. DDD (degenerative disc disease), lumbar 09/11/19 18 External hemorrhoids 01/31/2017 Obesity with body mass index 30 or greater 01/31 Chronic cough 01/09/2017 Assessment & Plan (11/26/2023 3:46 PM CDT): Interestingly this is almost completely resolved after 5 days of Tessalon Perles and albuterol use I do think that uncontrolled GERD and sinus drainage play a large role in his chronic cough however it does sound as if he had a respiratory infection in July that may have prolonged and worsened his cough. He had no response to antibiotic therapy, steroids or cough syrup. His pulmonary function testing and chest imaging were normal Chronic pansinusitis 01/09/2017 long term use of drug 11/21/2016 Assessment & Plan (02/21/2017 10:12 AM CDT): Will continue to monitor the patient with routine labs. Assessment & Plan (11/21/2016 9:17 AM CDT): Will continue to monitor the patient with routine labs. 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 Irregular lunate and possible radial erosions. Assessment & Plan (02/21/2017 11:42 AM CDT): Patient disease activity is low (low pain score). Patient is to continue MTX and Fa. Would advised to repeat u/s of the hand/wrist. Will check routine labs today. U/S from 05/[address] Blanco and patient. Explained in length about why he is on MTX, what lab findings and u/s findings led to his diagnosis and consequences of untreated rheumatoid arthritis. Patient acknowledge understanding. Will have him repeat his u/s to see if 6 tablets/week of MTX is enough. Assessment & Plan (11/21/2016 9:18 AM CDT): Low-Moderate CDAI. Increased the MTX at the last Ov. Will continue MtX at this time. He does not want prednisone at this time. Shortness of breath 12/26/2010 Headache 12/22/2009 Overview (09/07/2016): Headache Malignant neoplasm of prostate 06/03/1998 Overview (04/30/2022): prostate Immunizations Name Administration Dates Next Due H1N1 All Forms 04/20/2010 Influenza, Quadrivalent, Hig h Dose, Preservative Free, Intrr 01/21/2020 Influenza, Quadrivalent, Rec ombinant, Egg Free, Preservative Free, Intramuscular 03/13/2021 Influenza, Quadrivalent, Spl it, Intramuscular 04/03/2016 Influenza, Split 03/19/2010,03/03/2009 Influenza, Trivalent, High D ose, Split, Preservative Free, Intramuscular 03/30/2019,03/17/2018,03/16/2018,02/09,04/04/2016 Influenza, Trivalent, IM (MDV) 5,04/08/2014,06/14/2013,06/13,02/05/2011 Influenza, Unspecified 03/04/2019 COVEGA (J&J) SARS-CoV-2 Vaccination 11/14/2021, 08/08/2020 Pneumococcal Conjugate PCV 13 02/09/2017 Pneumococcal Polysaccharide PPV23 2021,03/17/2018,03/16/2018,02/05 Tdap 06/30/2019 Tetanus toxoid, adsorbed 06/22/2004 ZOSTER LIVE 04/04/2016 Social History Tobacco Use Types Packs/Day Years Used Date Smoking Tobacco: Former Cigarettes 1.5 37 1 959 - 1996 Smokeless Tobacco: Never Tobacco Cessation:Counseling Given: Not Answered Alcohol Use Standard Drinks/Week Comments Yes 3 (1 standard drink = 0.6 oz pur e alcohol) AUDIT-C Answer Date Recorded Q1: How often do you have a drink containing alcohol? Never 03/07/2023 Q2: How many drinks containi ng alcohol do you have on a typical day when you are drinking? Patient does not drink 10/05/202 3 Q3: How often do you have si x or more drinks on one occasion? Never 03/07/2023 PHQ-2 Answer Date Recorded PHQ-2 Total Score (If total score is 3 or more points, staff should administer the PHQ-9) 2 12/05/2021 Personal Safety Answer Date Recorded Have you ever been in or are you currently in a harmful physical or emotional relationship or is someone making you feel afraid or unsafe? Denies 02/05/2023 Sex and Gender Information Value Date Recorded Sex Assigned at Not on file Legal Sex Male 12:56 AM OPERATIONS MANAGER ASSISTANT Gender Identity Not on file Sexual Orientation Not on file Occupation Industry Job Start Date Job End Date Retired Not on file Not on file Not on file Last Filed Vital Signs Vital Sign Reading Time Taken Comments Blood Pressure 130/70 11/26/2023 11:01 AM CDT Pulse 78 11/26/2023 11:01 AM CDT Temperature 36.3 ??C (97.3 ??F) 11/26/2023 1 1:01 AM CDT Respiratory Rate 16 11/26/2023 11:0 1 AM CDT Oxygen Saturation 98% 11/26/2023 11: 01 AM CDT Inhaled Oxygen Concentration - - Weight 96.9 kg (213 lb 11.2 oz) 024 11:01 AM CDT Height 182.9 cm (6') 11/26/2023 11:01 AM CDT Body Mass Index 28.98 11/26/2023 11:01 AM CDT Plan of Treatment Not on file Goals Goal Patient Goal Type Associated Problems Recent Progress Patient-Stated? Author CCM Chronic Pain Care Plan Chronic Care Management No Svetlana Clay, GAY Note: Problem: Chronic Pain Goals: 1. Minimize further functional decline 2. Maximize quality of life 3. Control pain Strategies: - Activity/exercise program recommendation - Conservative stepwise pain medicine strategy with multi-disciplinary approach - Recommend healthy lifestyle strategies and compensatory methods as needed Reduce the likelihood of falling Lifestyle Svetlana Puentes, GAY Note: Below are four things you can do to prevent falls: Begin an exercise program to improve your leg strength & balance Ask your doctor or pharmacist to review your medicines Get annual eye check-ups & update your eyeglasses Make your home safer by: Removing clutter & tripping hazards Putting railings on all stairs & adding grab bars in the bathroom Having good lighting, especially on stairs Contact your local community or senior [place] for information on exercise, fall prevention programs, or options for improving home safety. Medical Devices Implanted Type Area Bevel Operator Device Identifier Shelf Expiration Date Model / Serial / Lot Plethora Particle Embolization Pre Filled Foam Vial 2ml Microsphere Contour 150-250um Polyvinyl Alcohol [id number] - [id number] Implanted:Qty: 1 on 02/05/2023 at [facility] Mbite Eliza 08/21/2025 [id number] / / [id number] VoxFeed Coil Embolization Tornado Microcoil [place] Od3-2mm .018 In Catheter [id number] - [id number] Implanted:Qty: 1 on 02/05/2023 at [facility] V[employer] 08/07/2027 [id number] / / [id number] [employer] Angio-Seal Vip 6fr Closere Device [id number] - [id number] Implanted:Qty: 1 on 02/05/2023 at [facility] [employer] 08/01/2023 [id number] / / [id number] Procedures Procedure Name Priority Date/Time Associated Diagnosis Comments CT ABDOMEN PELVIS W CONTRAST ED 05/20/2018 1:12 AM OPERATIONS MANAGER ASSISTANT from Last 3 Months or Most Recently Relevant to Health Maintenance Results * CT Abdomen Pelvis W Contrast (05/20/2018 1:12 AM OPERATIONS MANAGER ASSISTANT) Anatomical Region Laterality Modality Body N/A Computed Tomogra phy 05/20/2018 7:08 AM OPERATIONS MANAGER ASSISTANT Impressions 05/20/2018 7:24 AM OPERATIONS MANAGER ASSISTANT 1. ??PERSISTENT 4 MM DISTAL RIGHT URETER STONE ALTHOUGH HYDROURETERONEPHROSIS ON THE RIGHT HAS C4 IMPROVED COMPARED WITH THE PRIOR EXAMINATION. ??THERE IS PERSISTENT LEFT LOWER POLE HYDRONEPHROSIS. ??NONOBSTRUCTING STONES WITHIN THE KIDNEYS PERSIST. 2. ??DEVELOPMENT OF MILD SPLENOMEGALY. 3. ??OTHER NONACUTE FINDINGS ABOVE. REPORT BY NAUN BOONE FOR VIRTUAL RADIOLOGY 05/20/2018 AT 2:17 AM. Electronically signed by: Antelmo Travis 05/20/2018 7:24 [address] ABDOMEN PELVIS W CONTRAST HISTORY: Abd distension. ??Upper abdominal pain, nausea, vomiting, diarrhea. TECHNIQUE: Helical CT scan of the abdomen and pelvis obtained with intravenous contrast. ??100 mL Optiray 320. ??No oral contrast as requested. COMPARISON: 04/21/2018. FINDINGS: Stable left lobe hepatic cyst. ??Gallbladder unremarkable. Mild splenomegaly. ??No pancreatic mass identified. ??For the kidneys persistent 4 mm distal right ureter stone although the right hilar ureteral nephrosis is improved compared with the prior examination. Persistent pelvocaliectasis left kidney especially lower pole, which was evident previously. ??Small intrarenal calculi are present which are nonobstructing. ??3.4 cm cyst MID to lower pole right kidney. ??A small cyst lateral aspect left kidney towards lower pole. ??Very small hypodense focus lower pole left kidney, and a very small hypodense focus between the upper and midpole left kidney, too small to characterize. ??Small cyst upper pole right kidney. ??No adrenal mass identified. ??Atherosclerotic changes abdominal aorta and iliac arteries. ??No small bowel dilatation identified. ??Some colonic diverticulosis. ??No definite evidence of diverticulitis. ??The urinary bladder is moderately distended with urine. ??No evidence of acute appendicitis. ??Prostatomegaly, the transverse dimension the prostate gland of 5.4 cm. ??Small right inguinal hernia containing only adipose tissue. ??Degenerative disc disease L2-L3. Procedure Note Luis Michaud MD - 05/20/2018 CT ABDOMEN PELVIS W CONTRAST HISTORY: Abd distension. Upper abdominal pain, nausea, vomiting, diarrhea. TECHNIQUE: Helical CT scan of the abdomen and pelvis obtained with intravenous contrast. 100 mL Optiray 320. No oral contrast as requested. COMPARISON: 04/21/2018. FINDINGS: Stable left lobe hepatic cyst. Gallbladder unremarkable. Mild splenomegaly. No pancreatic mass identified. For the kidneys persistent 4 mm distal right ureter stone although the right hilar ureteral nephrosis is improved compared with the prior examination. Persistent pelvocaliectasis left kidney especially lower pole, which was evident previously. Small intrarenal calculi are present which are nonobstructing. 3.4 cm cyst MID to lower pole right kidney. A small cyst lateral aspect left kidney towards lower pole. Very small hypodense focus lower pole left kidney, and a very small hypodense focus between the upper and midpole left kidney, too small to characterize. Small cyst upper pole right kidney. No adrenal mass identified. Atherosclerotic changes abdominal aorta and iliac arteries. No small bowel dilatation identified. Some colonic diverticulosis. No definite evidence of diverticulitis. The urinary bladder is moderately distended with urine. No evidence of acute appendicitis. Prostatomegaly, the transverse dimension the prostate gland of 5.4 cm. Small right inguinal hernia containing only adipose tissue. Degenerative disc disease L2-L3. IMPRESSION: 1. PERSISTENT 4 MM DISTAL RIGHT URETER STONE ALTHOUGH HYDROURETERONEPHROSIS ON THE RIGHT HAS C4 IMPROVED COMPARED WITH THE PRIOR EXAMINATION. THERE IS PERSISTENT LEFT LOWER POLE HYDRONEPHROSIS. NONOBSTRUCTING STONES WITHIN THE KIDNEYS PERSIST. 2. DEVELOPMENT OF MILD SPLENOMEGALY. 3. OTHER NONACUTE FINDINGS ABOVE. REPORT BY NAUN BOONE FOR VIRTUAL RADIOLOGY 05/20/2018 AT 2:17 AM. Electronically signed by: Luis Michaud M.D Kevin Blackwell MD IMG CT PROCEDURES Final Res ult from Last 3 Months or Most Recently Relevant to Health Maintenance Insurance MEDICARE [facility] Address: [facility] [address] [place] [address] Rentabilities [employer] [facility] MEDICARE Address: [facility] [address] [place] [address] MEDICARE [employer] [facility] MEDICARE Address: [address] [address] Advance Directives For more information, please contact: [phone] Documents on File Type Date Recorded Patient Sap Treasury Consultant Expl anation ADVANCE DIRECTIVE 03/09/2019 6:43 AM * Full Code (Latest Code Status on File) Date Activated Date Inactivated Comments 02/05/2023 11:14 AM 02/06/2023 5:10 PM * Full Code Date Activated Date Inactivated Comments 07/01/2022 9:36 PM 07/03/2022 2:45 PM Care Teams Roster Clerk Relationship Specialty Start Date End Date Grey Tomas MD PCP - General Family Practice 07/27/22 [place] [address] [facility] [address] [place] [address] Rheumatology 02/21/17 Lashay Downs, RN Registered Nurse Pain Management 06/17/17 Duke Do, RN Registered Nurse 09/09/17 Ngozi Petty MD Radiation Oncologist Radiation Oncology 02/05/19 Jose Roberto Marx MD Referring Physician Otolaryngology 02/05/19
--- OUTSIDE RECORDS SUMMARY | 2024-06-14 16:45 | XMS_ITS ---
Author Organization [facility] Address [address] [place] [address] Care Team Providers Care Powder Loader Name Role Phone Criss Blanco MD Unavailable Lashay Downs RN Unavailable Unavailab Duke Goodwin RN Unavailable UnavailNgozi Husain MD Unavailable [phone] Jose Roberto Marx MD Unavailable [phone] Grey Tomas MD Primary Care Provider [phone] Active Problems Problem Noted Date Diagnosed Date Non-seasonal allergic rhinitis 11/26/2023 Assessment & Plan (11/26/2023 3:48 PM CDT): Continue montelukast 10 mg once daily OTC antihistamine daily Avoid triggers Saline nasal rinses Subdural hematoma 02/05/2023 Chronic panethmoidal sinusitis 01/31/2023 SDH (subdural hematoma) 07/01/2022 Dysplasia of larynx 05/01/2022 Overview (05/01/2022): Added automatically from request for surgery [id number] Lesion of vocal fold 04/25/2022 Overview (04/25/2022): Added automatically from request for surgery [id number] Adenomatous polyp of colon 04/04/2022 Pollard's esophagus [...] surveillance. Assessment & Plan (04/18/2021 11:46 AM MANAGER BUSINESS INFORMATION): No evidence of disease today. However he [...] CDT): 75 yo M with a h/o [id number] TVC SCCA s/p KTP laser, presenting with new right TVC lesions concerning for malignancy. Plan to proceed to the OR for biopsy and laser treatment of the new right TVC lesions. Assessment & Plan (08/09/2020 3:55 PM MANAGER BUSINESS INFORMATION): No evidence of disease on examination today. Continue routine surveillance. Assessment & Plan (05/20/2020 10:03 AM MANAGER BUSINESS INFORMATION): No evidence of disease on examination today. Continue routine surveillance. 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 Assessment & Plan (06/23/2019 11:47 AM MANAGER BUSINESS INFORMATION): His larynx looks clean after KTP laser treatment. 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 I would like to continue routine observation every 8 weeks. Assessment & Plan (05/12/2019 11:46 AM MANAGER BUSINESS INFORMATION): The leukoplakia of the anterior right true [...] proceed. Assessment & Plan (04/07/2019 1:25 PM MANAGER BUSINESS INFORMATION): There are 2 small punctate areas of [...] 07/01/2018 Assessment & Plan (07/01/2018 2:08 PM MANAGER BUSINESS INFORMATION): Lifelong 'upset stomachj this relieved by adding 2 nocturnal rolaids to his regimen of omeprazol 20 in am and zantac 300HS. EGD abnd colon 2011 normal. 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 Assessment & Plan (11/21/2016 9:17 AM CDT): Will continue to monitor the patient with routine labs. 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 Past Plans No past plan information found. Radiation Treatments * No radiation treatments are documented for this patient in [facility]. Treatments may have been administered in another system. Lifetime Dose Tracking * Chemical Lifetime Dose Automatic Entry Manual Entr y Fluoro Time 40.382 minutes 40.382 minutes 0 minutes Air kerma at the reference point (Ka,r) 2,371.47 mGy 2 ,371.47 mGy 0 mGy DLP 5,625 mGycm 5,625 mGycm 0 mGycm
--- OUTSIDE RECORDS SUMMARY | 2024-06-14 16:45 | XMS_ITS | Clinical Summary ---
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 Assessment & Plan (04/18/2021 11:46 AM RELOCATION SERVICES SPECIALIST): No evidence of disease today. However he [...] CDT): 75 yo M with a h/o [id number] TVC SCCA s/p KTP laser, presenting with new right TVC lesions concerning for malignancy. Plan to proceed to the OR for biopsy and laser treatment of the new right TVC lesions. Assessment & Plan (08/09/2020 3:55 PM RELOCATION SERVICES SPECIALIST): No evidence of disease on examination today. Continue routine surveillance. Assessment & Plan (05/20/2020 10:03 AM RELOCATION SERVICES SPECIALIST): No evidence of disease on examination today. Continue routine surveillance. Assessment & Plan (04/08/2020 9:16 AM RELOCATION SERVICES SPECIALIST): There are new areas of leukoplakia on [...] surveillance. Assessment & Plan (06/23/2019 11:47 AM RELOCATION SERVICES SPECIALIST): His larynx looks clean after KTP laser treatment. 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 I would like to continue routine observation every 8 weeks. Assessment & Plan (05/12/2019 11:46 AM RELOCATION SERVICES SPECIALIST): The leukoplakia of the anterior right true [...] proceed. 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 Assessment & Plan (11/21/2016 9:17 AM CDT): Will continue to monitor the patient with routine labs. 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 ([facility]) 07/03/2011 Overview (02/21/2017): RHEUMATOID ARTHRITIS Positive RF [...] Trivalent, IM (MDV) 5,04/08/2014,06/14/2013,06/13,02/05/2011 Influenza, Unspecified 03/04/2019 Roxy (J&J) SARS-CoV-2 Vaccination 11/14/2021, 08/08/2020 Pneumococcal Conjugate PCV 13 02/09/2017 Pneumococcal Polysaccharide PPV23 2021,03/17/2018,03/16/2018,02/05 Tdap 06/30/2019 Tetanus toxoid, adsorbed 06/22/2004 ZOSTER LIVE 04/04/2016 Surgical History Surgery Date Site/Laterality Comments BICEPS TENODESIS Left EAR SURGERY Left repair perforated eardrum ORCHIECTOMY Right VASECTOMY ROTATOR CUFF REPAIR Right and removal of bone spurs LITHOTRIPSY 5 or 6 times - [id number] LARYNGOSCOPY 01/09/2019 Right Direct laryngoscopy with biopsy LARYNGOSCOPY 02/16/2019 Right Suspension microlaryngoscopy with KTP laser photoablation Right vocal fold lesion SHOULDER SURGERY Right bone spurs PROSTATE SURGERY Pinched Prostate: surgically repaired COLONOSCOPY 03/14/2020 OTHER SURGICAL HISTORY 04/18/2020 Suspension microlaryngoscopy with KTP laser treatment-multiple CYSTOSCOPY 06/03/2019 - 06/02/2020 KIDNEY STONE SURGERY Medical History Medical History Date Comments Hx Other Medical 1980 L shoulder Hx Other Medical 1981 R shoulder Hx Other Medical 1985 R shoulder bone spurs Hx Other Medical 1962 ear drum patch Hx Other Medical 1977 testicle Hx Other Medical Headache, migra ine Hx Other Medical 1980 Bisept tendonit is Hx Other Medical 1993 Pinched Prostat e Hx Other Medical 2000 kidney stone Gastroesophageal reflux disease acid reflux Arthritis arthritis Calculus of kidney Nephrolithias is History of multiple allergies al lergies Hx Other Medical hemorroids; Com ments: Had done [facility] [place] Hx Other Medical bladder infecti on Hx Other Medical kidney stone Cancer of vocal cord (CMS/HCC) (HCC) Depression Gastric reflux Allergic rhinitis Rheumatoid arthritis (HCC) Low back pain Headache, tension-type Migraine Non-seasonal allergic rhinitis 11/26/2023 Family History * Patient is adopted Medical History Relation Name Comments Other Other 1 adopted Other Other 2 adopted Anesthesia problems Neg Hx Relation Name Status Comments Other 1 Alive ^ Grandson (24 y/o)) DVT Other 2 Social History Tobacco Use Types Packs/Day Years [...] you are drinking? 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 SERVICES SPECIALIST Gender Identity Not on file Sexual Orientation Not on file Occupation Industry Job Start Date Job End Date Retired Not on file Not on file Not on file Obstetrics History Last Filed Vital Signs Vital Sign Reading [...] 11/26/2023 11:01 AM CDT Plan of Treatment Health Maintenance Due Date Last Done Comments Hepatitis B Screening 1963 Well Visit 65+ 2008 Zoster Vaccine (2 of 3) 05/30/2016 04/04/2016 Depression Screening 12/05/2022 12/05/2021, 12/05/2021, 06/17/2017, Additional history exists Covid-19 Vaccine (3 - 2023-2 5 season) 2024 11/14/2021, 08/08/2020 Influenza Vaccine (#1) 2024 , 01/21/2020, 03/30/2019, Additional history exists Fall Risk Assessment 02/06/2024 02/05/2023, 09/27/2020, 08/23/2020, Additional history exists DTaP/Tdap/Td Vaccine (2 - Td or Tdap) 06/30/2029 06/30/2019 Abdominal Aortic Aneurysm (A AA) Screen Completed 11/29/2020, 03/30/2020, 02/05/2020, Additional history exists Pneumococcal vaccine 65+ Completed 022, 03/17/2018, 03/16/2018, Additional history exists Goals Goal Patient Goal Type Associated Problems Recent Progress Patient-Stated? Author CCM Chronic Pain Care Plan Chronic Care Management Svetlana Puentes, RN Note: Problem: Chronic Pain Goals: 1. Minimize further functional decline 2. Maximize quality of life 3. Control pain Strategies: - Activity/exercise program recommendation - Conservative stepwise pain medicine strategy with multi-disciplinary approach - Recommend healthy lifestyle strategies and compensatory methods as needed Reduce the likelihood of falling Lifestyle Svetlana Puentes, RN Note: Below are four things you can [...] on stairs Contact your local community or [facility] for information on exercise, fall prevention programs, or options for improving home safety. Medical Devices Implanted Type Area Caramel Maker Device Identifier Shelf Expiration Date Model / Serial / Lot [employer] Particle Embolization Pre Filled Foam Vial 2ml Microsphere Contour 150-250um Polyvinyl Alcohol [id number] - [id number] Implanted:Qty: 1 on 02/05/2023 at [facility] [employer] 08/21/2025 [id number] / / [id number] [place] Coil Embolization [place]ado Microcoil [place] Od3-2mm .018 In Catheter [id number] - [id number] Implanted:Qty: 1 on 02/05/2023 at [facility] [employer] 08/07/2027 [id number] / / [id number] InCast Angio-Seal Vip 6fr Closere Device [id number] - [id number] Implanted:Qty: 1 on 02/05/2023 at [facility] [employer] 08/01/2023 [id number] / / [id number] Procedures Procedure Name Priority Date/Time Associated Diagnosis Comments CT ABDOMEN PELVIS W CONTRAST ED 05/20/2018 1:12 AM RELOCATION SERVICES SPECIALIST from Last 3 Months or Most Recently Relevant to Health Maintenance Results * CT Abdomen Pelvis W Contrast (05/20/2018 1:12 AM RELOCATION SERVICES SPECIALIST) Anatomical Region Laterality Modality Body N/A Computed Tomogra phy 05/20/2018 7:08 AM RELOCATION SERVICES SPECIALIST Impressions 05/20/2018 7:24 AM RELOCATION SERVICES SPECIALIST 1. ??PERSISTENT 4 MM DISTAL RIGHT URETER STONE ALTHOUGH HYDROURETERONEPHROSIS ON THE RIGHT HAS C4 IMPROVED COMPARED WITH THE PRIOR EXAMINATION. ??THERE IS PERSISTENT LEFT LOWER POLE HYDRONEPHROSIS. ??NONOBSTRUCTING STONES WITHIN THE KIDNEYS PERSIST. 2. ??DEVELOPMENT OF MILD SPLENOMEGALY. 3. ??OTHER NONACUTE FINDINGS ABOVE. REPORT BY NAUN BOONE FOR VIRTUAL RADIOLOGY 05/20/2018 AT 2:17 AM. Electronically signed by: Antelmo Travis 05/20/2018 7:[address] ABDOMEN PELVIS W CONTRAST HISTORY: Abd [...] Recently Relevant to Health Maintenance Insurance MEDICARE [employer] MEDICARE SOLUTIONS MEDICARE SOLUTIONS MEDICARE SOLUTIONS Advance Directives For more information, please contact: [phone] Documents on File Type Date Recorded Patient Beveling And Edging Machine Operator Expl anation ADVANCE DIRECTIVE 03/09/2019 6:43 AM * Full Code (Latest Code Status on File) Date Activated Date Inactivated Comments 02/05/2023 11:14 AM 02/06/2023 5:10 PM * Full Code Date Activated Date Inactivated Comments 07/01/2022 9:36 PM 07/03/2022 2:45 PM Care Teams Cnc Mill Operator Relationship Specialty Start Date End Date Grey Tomas MD PCP - General Family Practice 07/27/22 [place] [id number] [facility] [address] [place] [address] Rheumatology 02/21/17 Lashay Downs, GAY Registered Nurse Pain Management 06/17/17 Duke Do, RN Registered Nurse 09/09/17 Ngozi Petty MD Radiation Oncologist Radiation Oncology 02/05/19 Jose Roberto Marx MD Referring Physician Otolaryngology 02/05/19
--- OUTSIDE RECORDS SUMMARY | 2024-06-14 16:46 | XMS_ITS | Encounter Summary ---
Author Organization [facility] Address [address] [place] [address] Phone Care Team Providers Care Certified Phlebotomy Technician Name Role Phone Criss Blanco MD Unavailable Lashay Downs RN Unavailable Unavailab Duke Goodwin RN Unavailable UnavailNgozi Husain MD Unavailable [phone] Jose Roberto Marx MD Unavailable [phone] Grey Tomas MD Primary Care Provider [phone] Encounter Details Date Type Department Care Team (Late st Contact Info) Description 03/07/2023 11:15 AM CDT Office Visit [facility] Neurosurgery [address] [facility] [address] [facility] 6th [place] [address] [place] [address] Aston Grubbs MD [address] [place] [address] Subdural hematoma (HCC) (Primary Dx) Social History Tobacco Use Types Packs/Day Years Used Date Smoking Tobacco: Former Cigarettes 1.5 37 1 959 - 1995 Smokeless Tobacco: Never Alcohol Use Standard Drinks/Week Comments Yes 3 (1 standard drink = 0.6 oz pur e alcohol) AUDIT-C Answer Date Recorded Q1: How often do you have a drink containing alcohol? Never 03/07/2023 Q2: How many drinks containi ng alcohol do you have on a typical day when you are drinking? 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 Department of Neurological Surgery Aston Grubbs M.D. [facility] Department of Neurological Surgery [address] [place], [place] [id number] RETURN VISIT Patient Name: Samuel Sanchez Medical Record Number (MRN): [id number] Date of (): 1945 Encounter Date: 03/07/2023 PRIMARY CARE PROVIDER: Grey Tomas MD REFERRING PROVIDER: Grey Tomas MD [address] [place] [address] INTERVAL HISTORY We saw Samuel Sanchez in our neurosurgery clinic for follow-up of his bilateral subdural hematomas that were treated with middle meningeal artery embolization. He sustained a left-sided subdural hematoma after a fall in June of this year and this was treated conservatively with imaging surveillance by partner Dr. Martínez as it was small and asymptomatic. Over the course of follow-up, he was found to have enlargement of the left sided hematoma and a new right-sided subdural hematoma as well. He started developing some headaches as well. He was then referred to co. He then underwent bilateral middle meningeal artery embolization on 02/05/2023. He is now here for post treatment evaluation. He denies any new symptoms since last evaluation. Denies any new focal weakness or numbness. Deniesany new seizures. VITAL SIGNS There were no vitals filed for this visit. PHYSICAL EXAM: On the exam, he is awake, alert and oriented x3. Pupils are equal and reactive to light. Extraocular movements are intact. Face is symmetrical. Shoulder shrug is symmetrically strong. Tongue protrudes in the midline. He moves all extremities with equal strength. No pronator drift. Sensation grossly intact to light touch. REVIEW OF IMAGING: I have reviewed the non contrast head CT scan from 03/07/23 and concur with the radiology report which is listed below. CT Head WO Contrast Result Date: 03/07/2023 1. Mild interval decrease in size of left convexity subacute subdural hematoma 2. No significant change in right size of right convexity subdural hematoma Dictated by: Saman Olvera MD The radiology attending physician has personally reviewed this study, and had reviewed and/or edited this written report and agrees with it. Electronically signed by: Waqas Ashraf MD, PHD ASSESSMENT AND PLAN: Samuel Sanchez is a 77 y.o. male who presents today for follow up of bilateral convexity mixed density subdural hematomas that were treated with middle meningeal artery embolization approximately [address] scan shows some decrease in size of the left-sided subdural hematoma and unchanged size of the right-sided small subdural hematoma. I reassured the patient and his family that improvement after middle meningeal artery embolization can take some time. Recent data suggests that over 90% of chronic subdural hematomas resolved over a period of 6 months after stand-alone middle meningeal artery embolization. Multiple recent studies have also shown that only 4-8% of chronic subdural hematomas treated with middle meningeal artery embolization required surgical rescue. Therefore we would like to see him back in about 2 months in [facility] clinic with a repeat head CT scan as long as he does not develop any new symptoms. If he has any new symptoms and we would see himearlier. documented in this encounter Plan of Treatment Not on file documented as of this encounter Goals Goal Patient Goal Type Associated Problems Recent Progress Patient-Stated? Author CCM Chronic Pain Care Plan Chronic Care Management No Svetlana Clay, RN Note: Problem: Chronic Pain Goals: 1. Minimize further functional decline 2. Maximize quality of life 3. Control pain Strategies: - Activity/exercise program recommendation - Conservative stepwise pain medicine strategy with multi-disciplinary approach - Recommend healthy lifestyle strategies and compensatory methods as needed Reduce the likelihood of falling Lifestyle No Svetlana Clay, RN Note: Below are four things you [...] on stairs Contact your local community or [facility] for information on exercise, fall prevention programs, or options for improving home safety. documented as of this encounter Visit Diagnoses Diagnosis Subdural hematoma (HCC)- Primary Subdural hemorrhage documented in this encounter Care Teams Certified Phlebotomy Technician Relationship Specialty Start Date End Date Grey Tomas MD PCP - General Family Practice 07/27/22 [place] [address] [facility] [address] [place] [address] Rheumatology 02/21/17 Lashay Downs, GAY Registered Nurse Pain Management 06/17/17 Duke Do, GAY Registered Nurse 09/09/17 Ngozi Petty MD Radiation Oncologist Radiation Oncology 02/05/19 Jose Roberto Marx MD Referring Physician Otolaryngology 02/05/19 documented as of this encounter
--- OUTSIDE RECORDS SUMMARY | 2024-06-14 16:46 | XMS_ITS | Encounter Summary ---
Author Organization [facility] Healthcare Address [address] [place] [address] Care Team Providers Care Assistant Project Engineer Name Role Phone Criss Blanco MD Unavailable Lashay Downs RN Unavailable Unavailab Duke Goodwin RN Unavailable UnavailNgozi Husain MD Unavailable [phone] Jose Roberto Marx MD Unavailable [phone] Grey Tomas MD Primary Care Provider [phone] Encounter Details Date Type Department Care Team (Latest Contact Info) Description 08/15/2023 11:30 AM CDT - 08/15/2023 11:59 PM CDT Hospital Encounter [facility] [address] [place] [address] Left elbow pain Discharge Disposition: Discharge to home or self care Social History Tobacco Use Types Packs/Day Years [...] on file Legal Sex Male 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[employer] Gender Identity Not on file Sexual Orientation Not on file Occupation Industry Job Start Date Job End Date Retired Not on file Not on file Not on file documented as of this encounter Medications at Time of Discharge finasteride (PROSCAR) 5 mg tabletIndications :benign prostatic hyperplasia with lower urinary tract sx Take 1 tablet (5 mg total) by mouth chinese medicine practitioner before breakfast multivitamin capsuleIndication s:Vitamin Deficiency Prevention Take 1 capsule by mouth every morning omeprazole (PriLOSEC) 40 mg capsule Take 1 capsule (40 mg total) by mouth every morning 08/13/2022 topiramate (TOPAMAX) 25 mg tablet Take 2 tablets (50 mg total) by mouth daily 07/24/2023 vit A/vit C/vit E/zinc/copper (PRESERVISION AREDS ORAL) Take 1 capsule by mouth 2 (two) times a day diphenhydrAMINE 25 mg capsule Take 1 tablet/capsule (25 mg total) by mouth every 6 (six) hours as needed for itching 4 guaiFENesin-codei ne (GUAITUSS AC) liquid 100-10 mg/5 mL Take 10 mL by mouth 2 (two) times a day 07/24/2023 4 UNABLE TO FIND Take 1 each by mouth nightly as needed THC gummie-25mg 4 documented as of this encounter Discharge Disposition Disposition Code Departure Means Destination Discharge to home or self care documented in this encounter Miscellaneous Notes * Result Encounter Note - Albina Sanchez PA - 08/15/2023 12:34 PM CDT Please alert patient that his elbow XR shows severe arthritis. He can take Motrin and apply Voltaren cream to the elbow as directed and should follow up with his PCP. documented in this encounter Plan of Treatment [...] on stairs Contact your local community or [facility] for information on exercise, fall prevention programs, or options for improving home safety. documented as of this encounter Procedures Procedure Name Priority Date/Time Associated Diagnosis Comments XR ELBOW LEFT 3 OR MORE VIEWS Schedule JUAQUIN, Read JUAQUIN (Appt Today, Awaiting Results) 08/15/2023 11:47 AM CDT Left elbow pain documented in this encounter Results * XR Elbow Left 3 or More Views (08/15/2023 11:47 AM CDT) Anatomical Region Laterality Modality Upper Extremities, Elbow Left Compute d Radiography 08/15/2023 12:2 7 PM CDT Narrative 08/15/2023 12:28 PM CDT EXAM DESCRIPTION: ?? XR ELBOW LEFT 3 OR MORE VIEWS REASON FOR STUDY: ?? pain throughout left elbow x 3 days. denies injury ?? Pain x 3 days. ??Pain in the entire joint ??especially with extending and bending. ?? NKI. No surgery. ?? TECHNIQUE: ??Four views COMPARISON: ??None available FINDINGS: No acute fracture or dislocation. ??No lytic or destructive process. Severe degenerative changes all compartments with sclerosis and spur formation. Soft tissues unremarkable without elevated fat pad to suggest joint effusion. IMPRESSION: Severe degenerative changes left elbow. THIS IS AN ELECTRONICALLY VERIFIED FINAL REPORT 08/15/2023 12:28 PM - Electronically signed by ??Chidi Singh M.D. RB: SONAM D: ??08/15/2023 12:28 PM T: ??08/15/2023 12:28 PM Report ID: [id number] Reading Location: ??[id number] Procedure Note Chidi Singh MD - 08/15/2023 EXAM DESCRIPTION: XR ELBOW LEFT 3 OR MORE VIEWS REASON FOR STUDY: pain throughout left elbow x 3 days. denies injury Pain x 3 days. Pain in the entire joint especially with extending and bending. NKI. No surgery. TECHNIQUE: Four views COMPARISON: None available FINDINGS: No acute fracture or dislocation. No lytic or destructive process. Severe degenerative changes all compartments with sclerosis and spurformation. Soft tissues unremarkable without elevated fat pad to suggest jointeffusion. IMPRESSION: Severe degenerative changes left elbow. THIS IS AN ELECTRONICALLY VERIFIED FINAL REPORT 08/15/2023 12:28 PM - Electronically signed by Chidi Singh M.D. RB: SONAM Report ID: [id number] Reading Location: [id number] [facility] XR PROCEDURES F inal Result documented in this encounter Visit Diagnoses Diagnosis Left elbow pain Pain in joint, upper arm documented in this encounter Care Teams Assistant Project Engineer Relationship Specialty Start Date End Date Grey Tomas MD PCP - General Family Practice 07/27/22 [place] [id number] [facility] [address] [place] [address] Rheumatology 02/21/17 Lashay Downs, GAY Registered Nurse Pain Management 06/17/17 Duke Do, RN Registered Nurse 09/09/17 Ngozi Petty MD Radiation Oncologist Radiation Oncology 02/05/19 Jose Roberto Marx MD Referring Physician Otolaryngology 02/05/19 documented as of this encounter
--- OUTSIDE RECORDS SUMMARY | 2024-06-14 16:46 | XMS_ITS | Encounter Summary ---
Author Organization [facility] Healthcare Address [address] [place] [address] Care Team Providers Care Mysql Dba Name Role Phone Criss Blanco MD Unavailable Lashay Downs RN Unavailable Unavailab Duke Goodwin RN Unavailable UnavailNgozi Husain MD Unavailable [phone] Jose Roberto Marx MD Unavailable [phone] Grey Tomas MD Primary Care Provider [phone] Encounter Details Date Type Department Care Team (Latest Contact Info) Description 02/01/2023 7:30 AM CDT Pre-Admission Testing [facility] Center for Preoperative Assessment and Planning [facility] ([facility]) [address] [place] [address] Preoperative testing (Primary Dx); SDH (subdural hematoma) (HCC) Anesthesia Record Procedure Summary Procedure Name Responsible Anesthesiologist Anesthesia Start Time Anesthesia Stop Time IR PERMANENT OCCLUSION OR EMBOLIZATION PERCUTANEOUS MS SQL SERVER DEVELOPER Comfort Craven MD PhD 02/05/23 1318 02/05/23 1545 Events Date Time Event Comment 02/05/2023 1124 1318 An Start 1321 An Start Data 1327 An Induction The patient was reevaluated immediately before moderate or deep sedation use and before anesthesia induction. 1329 An Intubation 1332 Anesthesia Ready 1530 An Extubation 1537 an stop data 1540 Handoff to RN I completed my handoff to the receiving nurse during which we: 1. Patient identified 2. Responsible provider identified 3. Pertinent medical history reviewed 4. Procedure type and surgical course discussed 5. Intraoperative anesthetic management and any significant issues discussed 6. Expectations and concerns for postop period discussed 7. Questions solicited from receiving nurse 8. Patient disposition at the time of handoff: No value filed. 1545 An Stop Meds * Agents No agents on file. * Blood No blood administrations on file. Lines, Drains, and Airways Type Details Placement Removal Peripheral IV Placement Date: 10/23; Placement Time: 1137; Catheter Size: 20 G; Orientation: Left; Location: Hand; Site Prep: Chlorhexidine; Insertion Attempts: 1; Patient Tolerance: Tolerated well; Removal Date: 02/06/23; Removal Time: 1200; Removal Reason: Discharge 02/05/23 1137 by Alona Kamara RN 02/06/23 1200 by Debbi Gresham RN Urethral Catheter Placement Date: 10/23; Placement Time: 1338; Type: Temperature probe; Balloon Size: 10 mL; Urine Returned: Yes; Removal Date: 02/06/23; Removal Reason: Per protocol 02/05/23 1338 by Darcie Cleveland RN 02/06/23 0000 by Alicia Lindsey RN ETT Placement Date: 10/23; Placement Time: 1341 (created via procedure documentation); Mask Ventilation: 0; Technique: Video laryngoscopy; Type: ETT - single; Single Lumen Tube Size: 8 mm; Cuffed: Yes; Laryngoscope: Jorge; Blade Size: 4; Location: Oral; Insertion Attempts: 1; Placement Verification: Auscultation, Capnometry; Removal Date: 02/05/23; Removal Time: 1530 02/05/23 1341 by Juan Ramon Martin CRNA 02/05/23 1530 by Juan Ramon Martin, DRYWALL TAPER documented in this encounter Social History Tobacco Use Types Packs/Day Years Used Date Smoking Tobacco: Former Cigarettes 1.5 37 1 959 - 1995 Smokeless Tobacco: Never Alcohol Use Standard Drinks/Week Comments Yes 3 (1 standard drink = 0.6 oz pur e alcohol) AUDIT-C Answer Date Recorded Q1: How often do you have a drink containing alc ohol? 2-4 times a month 02/05/2023 Q2: How many drinks containi ng alcohol do you have on a typical day when you are drinking? 1 or 2 02/05/2023 Q3: How often do you have si x or more drinks on one occasion? 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[employer] Gender Identity Not on file Sexual Orientation Not on file Occupation Industry Job Start Date Job End Date Retired Not on file Not on file Not on file documented as of this encounter Last Filed Vital Signs Vital Sign Reading Time Taken Comments Blood Pressure 129/85 02/01/2023 8:03 AM CDT Pulse 65 02/01/2023 8:00 AM CDT Temperature - - Respiratory Rate 18 02/01/2023 8:00 AM CDT Oxygen Saturation 98% 02/01/2023 8:00 AM CDT Inhaled Oxygen Concentration - - Weight 100.6 kg (221 lb 12.5 oz) 02/01/2023 8:00 AM CDT Height 185.4 cm (6' 1 ) 02/01/2023 8:00 AM CDT Body Mass Index 29.26 02/01/2023 8:00 AM CDT documented in this encounter Miscellaneous Notes * Perioperative Nursing Note - Viraj Collins RN - 02/01/2023 7:30 AM CDT Center for Preoperative Assessment and Planning Perioperative Nursing Note CPAP Clinic at [facility] ([facility]) Date: 02/01/23 This assessment was completed with the patient. Vitals: 02/01/23 0800 02/01/23 0803 BP: 124/75 129/85 BP Location: Left arm Right arm Patient Position: Sitting Sitting Pulse: 65 Resp: 18 SpO2: 98% Weight: 100.6 kg (221 lb 12.5 oz) Height: 185.4 cm (6' 1 ) CHEST CIRCUMFERENCE: Social History Tobacco Use Smoking Status Former Packs/day: 1.50 Years: 30.00 Additional pack years: 0.00 Total pack years: 45.00 Types: Cigarettes Start date: 1958 Quit date: 1995 Years since quittin.6 Smokeless Tobacco Never Substance and Sexual Activity Drug Use Yes Types: Medical marijuana Alcohol Use Q1: How often do you have a drink containing alcohol?: 2-4 times a month Q2: How many drinks containing alcohol do you have on a typical day when you are drinking?: 1 or 2 Outpatient Medications Marked as Taking for the 02/01/23 encounter (Pre-Admission Testing) with [facility] CPAP NURSE Medication Sig Dispense Refill diphenhydrAMINE 25 mg capsule Take 1 tablet/capsule (25 mg total) by mouth every 6 (six) hours as needed for itching famotidine (PEPCID) 40 mg tablet Take 1 tablet (40 mg total) by mouth nightly finasteride (PROSCAR) 5 mg tablet Take 1 tablet (5 mg total) by mouth administrative support manager before breakfast multivitamin capsule Take 1 capsule by mouth every morning omeprazole (PriLOSEC) 40 mg capsule Take 1 capsule (40 mg total) by mouth every morning UNABLE TO FIND Take 1 each by mouth nightly as needed THC gummie-25mg vit A/vit C/vit E/zinc/copper (PRESERVISION AREDS ORAL) Take 1 capsule by mouth 2 (two) times a day Implants No active implants to display in this view. SKIN Piercings Remaining: No Wound (LDAs) Type of Wound (LDA): (denies) SCREENINGS Pain Assessment: 0-10 Pain Score: 3 Pain Location: Foot Pain Orientation: Right STOP-Bang Total Score: 3 Banuelos Fall Risk Score (Retired): 0 Marcelle index score: 100 Short Blessed Total Score: 0 NUTRITION PEREIRA Nutrition and Function History Questionnaire Is BMI < 20?: No Have you lost any weight in the past 6 months without trying? : No Have you eaten < 50% of normal in the past 2 weeks without trying?: No Have you experienced any of the following in the past month?: No, Diarrhea or high ostomy output Symptom Score: 1 Has your activity level decreased over the past 6 months or do you use an assistive device such as a walker, cane, or wheelchair?: Yes Total Score: 2 PATIENT CARE PLANNING Advance Directives (For Healthcare) Advance Directive: Patient has advance directive, copy in chart Communication/Utility Appraiser Needs Communication Needs: Glasses Assistive Devices/DME: Eyeglasses Discharge Planning Type of Residence: Private residence Living Arrangements: Alone Support Systems: Family members PROJECT MANAGEMENT ANALYST NO ADDITIONAL COMMENTS/ FOLLOW UP * Pre-Procedure Instructions - Viraj Collins RN - 02/01/2023 7:30 AM CDT [facility]ENTER FOR PREOPERATIVE ASSESSMENT AND PLANNING (CPAP) PRE-SURGICAL NURSING INSTRUCTIONS Clinic Assessment General Information Discussed with Patient: Surgery location provided to patient. Arrival time and surgical time will be provided to the patient by their surgeon. You should wear clothing that is clean, loose, comfortable and easy to get in and out of on the dayof surgery. Remove nail coverings, artificial nails and nail turkmen prior to the day of surgery. You should leave your valuables and any jewelry at home. No metal or piercings are allowed in the operating room. You should bring your insurance card, a photo ID (example: Application Integration Specialist's License) and a method of payment for any insurance copay, deductible or copay for discharge medications. You should bring a complete, up-to-date, list of all your medications on the day of surgery, including any over the counter medications or supplements you may take. Please note on your medication list, the last date & time you took each medication. The healthcare team, on the day of surgery, will ask for this information. You should bring your Advanced Directive and/or Living Will with you on the day of surgery if you have not verified a copy is already in your Epic Chart. If you are having surgery at [facility], please arrive on the day of surgery with the name and phone number of your local 24 hour pharmacy. Due to evening discharges, your routine pharmacy may be closed. In order to obtain your prescriptions that evening, your surgeon may need to send prescriptions to this pharmacy or have you take prescriptions to this pharmacy when you are discharged. Without this information, you may not be able to obtain your prescriptions that evening. PREVENTING INFECTION (DECOLONIZATION): Decolonization is the use of a topical antiseptic soap and sometimes a nasal ointment to remove bacteria (germs) from the skin's surface. Antiseptic soap: Chlorhexidine gluconate or CHG (brand name: Hibiclens??) Before surgery, your entire body must be thoroughly cleaned. CHG helps to reduce the bacteria on your skin. You may be given one or more bottles of CHG or you may be asked to obtain from your preferred pharmacy. Be sure to ask your pharmacist if you need help finding this product. Nasal ointment: Mupirocin (brand name: Bactroban)- This will only be ordered for the 5 Day Bathing Protocol. Your surgeon may also prescribe a topical ointment that is rubbed inside each of the nostrils to reduce the bacteria in your nose. Mupirocin ointment requires a prescription. If needed, it will be prescribed by your surgeon and obtained from your preferred pharmacy. SHOWERING WITH ANTISEPTIC SOAP (CHG) What You Need For Each Shower 60 mL (?? cup) of CHG 2 clean washcloths Below is the Pre-Surgical Bathing Protocol you should follow for your surgery. If your surgeon provides you different bathing instructions, please follow your surgeon's orders. 2 Day CHG Bathing Protocol (no nasal ointment) The following bathing instructions were discussed with the patient. Patient provided detailed scrubinstructions via A Guide for Patients Having Surgery: Your Pathway to Excellent Care, pages 7-10. Patients may also access the guide via the web link: [email or web address]. Patient stated understanding of the bathing instructions. Other Important Handouts/Education Discussed with Patient: Guide for Patients Having Surgery: Your Pathway to Excellent Care. Reviewed and provided document to patient. Patient stated understanding. Safe Surgery for Patients with Obstructive Sleep Apnea/Screening brochure. Reviewed and provided document to patient. Patient stated understanding. Advanced Directive. Reviewed and provided document to patient. Patient stated understanding. Nutrition Education Handout, Fuel Up For Surgery. Reviewed and provided document to patient. Patient stated understanding. Educated patient on the need for yellow FALL RISK wrist band while attending additional [facility] appointments. Placed yellow FALL RISK wrist band on patient. Fall preventions/risk education provided. Reviewed and provided below document(s) to patient. Patient stated understanding. Safety Tips for Preventing Falls in the Hospital and at Home. Blood Thinners & Falls: Keeping You Safe. Instructions and resources on smoking cessation. Reviewed with patient. Patient stated understanding. Eye Surgery Process. Reviewed and provided document to patient. Patient stated understanding. Travel/Exposure Screening: Travel Screening Have you traveled outside the [place] in the last 6 months?: No Exposure Screening Have you been exposed to anyone who is sick in the last 30 days?: No Have you been exposed to or tested positive for COVID-19 within the last 10 days?: No Infectious Disease Screening Are you having any of the following:: None As of 03/27/2022 any COVID TESTING required for surgery will be set up by your surgeon's office. Please reach out to your surgeon's office if you develop any COVID symptoms, test positive for COVID or are exposed to a COVID positive person. All patients should read below section: COVID 19 Updates & Visitor Policy: Please access [email or web address] for the most updated information. Information on [facility] & the Orthopedic Center: Please view [email or web address] (Patient & Visitor Information) for additional details regarding Advanced Directive forms, AWARE, directions, parking information, lodging, Internet access, dining and more. Information on [facility] or [facility] ([facility]): Please view [email or web address] (Patient and Visitor Information) for parking/directions and more. For MyChart information, to activate account or password recovery, please go to [email or web address] or call [phone] (toll-free: [phone]). Information for Suicide Prevention: National Suicide Prevention Lifeline (4-193-198-EXLQ (0415)). Surgery Times: For patients having surgery @ [facility], if your surgeon's office has not notified you of your surgery time by 2pm THE BUSINESS DAY BEFORE your surgery, please call the surgery center at [phone] and ask for your surgeon's office Dr. Grubbs. * Pre-Procedure Instructions - Mario Lisa Starkey, JOSEPH - 02/01/2023 7:30 AM CDT Center for Preoperative Assessment and Planning CPAP Clinic Location: [facility] CPAP The night before your surgery: * Do not eat anything after midnight the night before your procedure. and * Do not smoke or use tobacco products after midnight the night before surgery. It is best to stop smoking now to improve your health. The morning of your surgery: * You may have clear liquids on your surgery day. You must stop drinking two hours before you arrive to the surgery facility. Acceptable clear liquids include water, clear sports drinks, black coffee, or clear soda. DO NOT drink any milk, creamer, or alcohol. * Your surgeon's office may have provided additional instructions or restrictions. Please follow those instructions. * You may brush your teeth and rinse your mouth out. * Do not glue your dentures. * Do not wear jewelry, body piercings, makeup, hairpins, false eyelashes or contact lenses to the hospital. * Leave any valuables at home or with your family. * If you have an implantable device with a remote, bring the remote with you on the day of surgery. * If having surgery at [facility], you may want to bring a credit card if you want to use our Mobile Pharmacy for your discharge medications. Mobile pharmacy is not available at [facility], the Orthopedic Center, or [facility] Outpatient Surgery: * You must have a responsible adult drive you home and stay with you for 24 hours after your surgery * You cannot be alone at home or in a hotel * Please call your surgeon's office if you do not have someone to drive you home and/or stay with you after surgery * Please bring any items you may need to spend the night in the hospital. Sometimes patients need to be cared for in the hospital overnight. Instructions For Your Medications: Pre-Surgery Instructions: Medication Instructions diphenhydrAMINE 25 mg capsule Don't take on day of surgery famotidine (PEPCID) 40 mg tablet Take per usual schedule finasteride (PROSCAR) 5 mg tablet Take per usual schedule multivitamin capsule Stop taking 1 week prior to surgery omeprazole (PriLOSEC) 40 mg capsule Take morning of surgery THC gummies Stop taking 1 week prior to surgery vit A/vit C/vit E/zinc/copper (PRESERVISION AREDS ORAL) Stop taking 1 week prior to surgery hydrOXYchloroQUINE (PLAQUENIL) 200 mg tablet Per prescriber or surgeons office General Instructions For Medications: * Stop all of these medications 5 days prior to your surgery: excedrin, motrin, advil, ibuprofen, aleve, naproxen, meloxicam, celebrex, celecoxib. For medications that you are instructed to take on the morning of surgery, take the medications with a few sips of water. Stop all of these medications 7-14 days prior to your surgery: Vitamin E, Herbal medicines, Diet Pills If you have pain, you may take tylenol (acetaminophen). Do not take more than 6 tablets or 3000 mg (3 g) within a 24 period. Call your surgeon and the CPAP clinic if any of the following happens before surgery: Any changes in your health You have a fever You have any signs of an infection (chest, urinary tract or tooth) You have been to the Emergency Room or were in the hospital You have started taking any new medications You have questions about a bowel prep or special diet before surgery You have symptoms of COVID-19 such as a new or worsening cough, shortness of breath, fever, body aches, loss of taste or smell, diarrhea or vomiting, or sore throat. You have a household contact with COVID-19. You test positive for COVID-19. documented in this encounter Plan of Treatment Pending Results Name Type Priority Associated Diagnoses Date /Time Protime-INR Lab Routine 02/01/2023 8: 45 AM CDT documented as of this encounter Goals Goal [...] on stairs Contact your local community or [facility] for information on exercise, fall prevention programs, or options for improving home safety. documented as of this encounter Procedures Procedure Name Priority Date/Time Associated Diagnosis Comments EGFR Routine 02/01/2023 8:45 AM CDT SDH (subdural hematoma) (HCC) DIFFERENTIAL AUTO Routine 02/01/2023 8:4 5 AM CDT SDH (subdural hematoma) (HCC) CPAP APTT ALGORITHM Routine 02/01/2023 8 :45 AM CDT Preoperative testing CBC WITH AUTO DIFFERENTIAL Routine 02/01/2023 8:45 AM CDT SDH (subdural hematoma) (HCC) PROTIME-INR Routine 02/01/2023 8:45 AM CDT Preoperative testing BASIC METABOLIC PANEL Routine 02/01/2023 8:45 AM CDT SDH (subdural hematoma) (HCC) documented in this encounter Results * (ABNORMAL) eGFR (02/01/2023 8:45 AM CDT) eGFR 68(L) 90 - 130 mL/min/1. 73 m2 ANDRE DEAN Comment: Interpretive Data Reference Interval Normal ?>/= 90 mL/min/1.73m2 Mildly decreased* ? 60 - 89 mL/min/1.73m2 Mildly to moderately decreased ?45 - 59 mL/min/1.73m2 Moderately to severely decreased ??30 - 44 mL/min/1.73m2 Severely decreased ?15 - 29 mL/min/1.73m2 Kidney Failure ?< 15 ??mL/min/1.73m2 *Relative to young adult level Estimated glomerular filtration rate is determined by the 2020 CKD-EPI equation recommended by the National Kidney Foundation (A Unifying Approach to GFR Estimation: Recommendations of the NKF-ASK Task Force on Reassessing the Inclusion of Race in Diagnosing Kidney Disease, JASN 2020). The CKD-EPI equation should not be used for patients with unstable renal function and has not been validated in children and those over 70. Current interpretive data was last reviewed 2021. Blood 02/01/2023 8:45 AM CDT 02/01/2023 9:26 AM CDT Aston Grubbs MD LAB BLOOD ORDERABLES F inal Result [facility] Department [place] [address] * Protime-INR (02/01/2023 8:45 AM CDT) PT 11.5 10.3 - 13.7 sec [facility] IN[facility] 1.01 0.90 - 1.20 [facility] Comment: Interpretive data Oral anticoagulant therapeutic ranges: Venous thromboembolism prophylaxis or treatment: 2.0-3.0 CARDIOLOGY Standard range: 2.0-3.0 High-intensity range: 2.5-3.5 Refer to indication-specific guidelines for appropriate target ranges for prosthetic heart valve replacement. Current interpretive data was last revised on 2019. Blood 02/01/2023 8:45 AM CDT 02/01/2023 9:23 AM CDT Aston Grubbs MD LAB BLOOD ORDERABLES F inal Result [facility] [place] [address] * Differential, auto (02/01/2023 8:45 AM CDT) Neutrophil abs 4.2 1.7 - 6.5 K/cumm [facility] Imm gran abs 0.0 0.0 - 0.1 K/cumm [facility] Lymphocyte abs 0.9 0.8 - 3.3 K/cumm [facility] Monocyte abs 0.4 0.2 - 0.8 K/cumm [facility] Eosinophil abs 0.2 0.0 - 0.5 K/cumm [facility] Basophil abs 0.0 0.0 - 0.1 K/cumm [facility] Neutrophil pct 73.4 % [facility] Comment: Interpretive Data Percent cell count reference ranges are not reported, since discordance with absolute values may lead to misinterpretation of CBC data. Current Interpretive Data was last revised on 2017. Imm gran pct 0.2 % [facility] Comment: Interpretive Data Percent cell count reference ranges are not reported, since discordance with absolute values may lead to misinterpretation of CBC data. Current Interpretive Data was last revised on 2017. Lymphocyte pct 15.5 % [facility] Comment: Interpretive Data Percent cell count reference ranges are not reported, since discordance with absolute values may lead to misinterpretation of CBC data. Current Interpretive Data was last revised on 2017. Monocyte pct 6.7 % [facility] Comment: Interpretive Data Percent cell count reference ranges are not reported, since discordance with absolute values may lead to misinterpretation of CBC data. Current Interpretive Data was last revised on 2017. Eosinophil pct 3.5 % [facility] Comment: Interpretive Data Percent cell count reference ranges are not reported, since discordance with absolute values may lead to misinterpretation of CBC data. Current Interpretive Data was last revised on 2017. Basophil pct 0.7 % [facility] Comment: Interpretive Data Percent cell count reference ranges are not reported, since discordance with absolute values may lead to misinterpretation of CBC data. Current Interpretive Data was last revised on 2017. Blood 02/01/2023 8:45 AM CDT 02/01/2023 9:23 AM CDT Aston Grubbs MD LAB BLOOD ORDERABLES F inal Result Performing Organization Address [facility] Co de Phone Number [facility] Department [place] [address] * CPAP aPTT algorithm (02/01/2023 8:45 AM CDT) Pathologist [facility] aPTT 32 28 - 38 sec [facility] Comment: Interpretive Data Therapeutic heparin range: 60.0 - 94.0 seconds. Based on correlation with therapeutic heparin activity range of 0.3-0.7 Units/mL. Current interpretive data was last revised on 2020. Blood 02/01/2023 8:45 AM CDT 02/01/2023 9:23 AM CDT Lisa Martin NP LAB BLOOD ORDERABLES Final Result Performing Organization Address [facility] de Phone Number [facility] [place] [address] * Basic metabolic panel (02/01/2023 8:45 AM CDT) Pathologist [facility] Sodium 143 135 - 145 mmol/L [facility] Potassium, pl 4.0 3.3 - 4.9 mmol/L [facility] Chloride 106 97 - 110 mmol/L [facility] CO2 28 22 - 32 mmol/L [facility] Anion gap 9 2 - 15 mmol/L [facility] BUN 17 6 - 25 mg/dL [facility] Creatinine 1.11 0.80 - 1.30 mg/dL [facility] Glucose 94 70 - 199 mg/dL [facility] Comment: Interpretive Data Fasting glucose >/= 126 mg/dl is diagnostic for diabetes. ?? Fasting is defined as no caloric intake for at least 8 hours. Fasting glucose between 100 mg/dl to 125 mg/dl is diagnostic of prediabetes. In a patient with classic symptoms of hyperglycemia or hyperglycemic crisis, a random glucose >/= 200 mg/dl is diagnostic for diabetes. In the absence of unequivocal hyperglycemia, results should be confirmed by repeat testing. The classification and Diagnosis of Diabetes Diabetes Care 2021; 46: S19-S40. Current interpretive data was last revised 2022. Calcium 9.3 8.5 - 10.3 mg/dL [facility] Blood 02/01/2023 8:45 AM CDT 02/01/2023 9:23 AM CDT Narrative [facility] - 02/01/2023 9:54 AM CDT CPAP ORDER Has the patient fasted?->No Aston Grubbs MD LAB BLOOD ORDERABLES F inal Result [facility] [place] [address] * (ABNORMAL) CBC with auto differential (02/01/2023 8:45 AM CDT) [facility] WBC 5.7 3.8 - 9.9 K/cumm [facility] Hgb 15.6 13.0 - 17.5 g/dL [facility] Hct 45.4 38.9 - 50.3 % [facility] Plt 147(L) 150 - 400 K/cumm [facility] MPV 11.1 9.1 - 12.3 fL [facility] RBC 5.00 4.30 - 5.80 M/cumm [facility] MCV 90.8 81.3 - 96.4 fL [facility] MCH 31.2 27.1 - 33.3 pg [facility] MCHC 34.4 32.3 - 35.7 g/dL [facility] RDW CV 13.7 11.1 - 14.9 % [facility] RDW SD 45.3 35.7 - 48.1 fL [facility] NRBC abs 0.00 0.00 - 0.01 K/cumm [facility] Blood 02/01/2023 8:45 AM CDT 02/01/2023 9:23 AM CDT Narrative ANDRE VALENZUELA - 02/01/2023 9:35 AM CDT CPAP ORDER us Aston Grubbs MD LAB BLOOD ORDERABLES F inal Result [facility] [place] [address] documented in this encounter Visit Diagnoses Diagnosis Preoperative testing- Primary Unspecified pre-operative examination SDH (subdural hematoma) (HCC) Subdural hemorrhage documented in this encounter Discontinued Medications Medication Sig Discontinue Reason Start Date End Da te amoxicillin-clavulanat e (AUGMENTIN) 875-125 mg per tablet Take 1 tablet by mouth every 12 (twelve) hours 12/24/2022 02/01/2023 acetaminophen (TYLENOL) 325 mg tabletIndications:Pain Take 2 tablets (650 mg total) by mouth every 6 (six) hours as needed for pain Therapy completed 07/03/2022 02/01/2023 azelastine (ASTELIN) 137 mcg (0.1 %) nasal spray 2 sprays 2 (two) times a day Therapy completed 09/17/2022 02/01/2023 cetirizine (ZyrTEC) 10 mg tablet Take 10 mg by mouth administrative support manager before breakfast Therapy completed 02/01/2023 fluticasone propionate (FLONASE) 50 mcg/actuation nasal spray Administer 1 spray into each nostril administrative support manager before breakfast Therapy completed 04/12/2022 02/01/2023 folic acid (FOLVITE) 1 mg tablet Take 1 tablet (1 mg total) by mouth administrative support manager before breakfast Therapy completed 02/01/2023 omeprazole (PriLOSEC) 20 mg capsule Take 2 capsules (40 mg total) by mouth administrative support manager before breakfast Duplicate order 02/01/2023 predniSONE (DELTASONE) 20 mg tabletIndications:Righ t Achilles tendinitis Take 2 tablets (40 mg) by mouth daily Therapy completed 10/04/2022 02/01/2023 rOPINIRole (REQUIP) 1 mg tablet Take 2 tablets (2 mg total) by mouth nightly Therapy completed 02/01/2023 senna-docusate (PERICOLACE) 8.6-50 mg Take 1 tablet by mouth 2 (two) times a day Therapy completed 07/03/2022 02/01/2023 oxyCODONE (ROXICODONE) 5 mg immediate release tablet Take 1 tablet (5 mg total) by mouth every 4 (four) hours as needed for pain Therapy completed 05/07/2022 02/01/2023 famotidine (PEPCID) 40 mg tablet Take 1 tablet (40 mg total) by mouth nightly Therapy completed 03/28/2020 02/01/2023 rummrqmzui-gexzipyw-dm rmoterol (Breztri Aerosphere) 160-9-4.8 mcg/actuation HFA aerosol inhaler Inhale 2 puffs every 12 hours Therapy completed 08/29/2022 02/01/2023 montelukast (SINGULAIR) 10 mg tablet Take 10 mg by mouth nightly Therapy completed 04/12/2022 02/01/2023 Mucinex D 60-600 mg per 12 hr tablet TAKE 1 TABLET BY MOUTH TWICE DAILY NEEDED FOR COLD SYMPTOMS Therapy completed 08/02/2022 02/01/[address] (EC NAPROSYN) 500 mg EC tablet Take 1 tablet (500 mg total) by mouth 2 (two) times a day Therapy completed 10/09/2022 02/01/2023 olopatadine-mometasone (Ryaltris) 665-25 mcg/spray spray,non-aerosol Administer 2 sprays into affected nostril(s) every 12 hours Therapy completed 08/29/2022 02/01/2023 pramipexole (MIRAPEX) 0.25 mg tablet Take 1 tablet (0.25 mg total) by mouth nightly at bedtime Therapy completed 12/26/2022 02/01/2023 polyethylene glycol (MIRALAX) 17 gram/dose bulk powder DISSOLVE 17 GRAMS IN LIQUID AND DRINK BY MOUTH DAILY Therapy completed 01/24/2023 02/01/2023 methotrexate 2.5 mg tablet Take 6 tablets (15 mg total) by mouth once a week saturday Therapy completed 02/02/2020 02/01/2023 levETIRAcetam (KEPPRA) 500 mg tablet Take 1 tablet (500 mg total) by mouth 2 (two) times a day for 11 doses Therapy completed 07/03/2022 02/01/2023 documented as of this encounter Historical Medications * This list may reflect changes made after this encounter. diphenhydrAMINE 25 mg capsule Take 1 tablet/capsul e (25 mg total) by mouth every 6 (six) hours as needed for itching 01/08/2024 famotidine (PEPCID) 40 mg tablet Take 1 tablet (40 mg total) by mouth nightly 08/15/2023 added in this encounter Care Teams Mysql Dba Relationship Specialty Start Date End Date Grey Tomas MD PCP - General Family Practice 07/27/22 [place] [address] [facility] [address] [place] [address] Rheumatology 02/21/17 Lashay Downs, RN Registered Nurse Pain Management 06/17/17 Duke Do, RN Registered Nurse 09/09/17 Ngozi Petty MD Radiation Oncologist Radiation Oncology 02/05/19 Jose Roberto Marx MD Referring Physician Otolaryngology 02/05/19 documented as of this encounter
--- OUTSIDE RECORDS SUMMARY | 2024-06-14 16:46 | XMS_ITS | Encounter Summary ---
Author Organization [facility] Healthcare Address [address] [place] [address] Care Team Providers Care Licensed Land Surveyor Name Role Phone Criss Blanco MD Unavailable Lashay Downs RN Unavailable Unavailab Duke Goodwin RN Unavailable UnavailNgozi Husain MD Unavailable [phone] Jose Roberto Marx MD Unavailable [phone] Grey Tomas MD Primary Care Provider [phone] Encounter Details Date Type Department Care Team (Late st Contact Info) Description 01/31/2023 Orders Only [facility] Neuro Interventional Radiology [address] [place] [address] Kecia Gant, ZOILA [address] [facility] [address] [place] [address] Social History Tobacco Use Types Packs/Day Years Used Date Smoking Tobacco: Former Cigarettes 1.5 37 1 959 - 1995 Smokeless Tobacco: Never Alcohol Use Standard Drinks/Week Comments Yes 3 (1 standard drink = 0.6 oz pur e alcohol) AUDIT-C Answer Date Recorded Q1: How often do you have a drink containing alc ohol? 2-3 times a week 08/08/2022 Q2: How many drinks containi ng alcohol do you have on a typical day when you are drinking? 1 or 2 08/08/2022 Q3: How often do you have si x or more drinks on one occasion? 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 documented as of this encounter Visit Diagnoses Not on filedocumented in this encounter Care Teams Licensed Land Surveyor Relationship Specialty Start Date End Date Grey Tomas MD PCP - General Family Practice 07/27/22 [place] [address] [facility] [address] [place] [address] Rheumatology 02/21/17 Lashay Downs, GAY Registered Nurse Pain Management 06/17/17 Duke Do, RN Registered Nurse 09/09/17 Ngozi Petty MD Radiation Oncologist Radiation Oncology 02/05/19 Jose Roberto Marx MD Referring Physician Otolaryngology 02/05/19 documented as of this encounter
--- OUTSIDE RECORDS SUMMARY | 2024-06-14 16:46 | XMS_ITS | Encounter Summary ---
Author Organization [facility] Address [address] [place] [address] Phone Care Team Providers Care Irrigator Gravity Flow Name Role Phone Criss Blanco MD Unavailable Lashay Downs RN Unavailable Unavailab Duke Goodwin RN Unavailable UnavailNgozi Husain MD Unavailable [phone] Jose Roberto Marx MD Unavailable [phone] Grey Tomas MD Primary Care Provider [phone] Reason for Referral * MRI/CAT/PET Scan (Routine) - Closed Specialty Diagnoses / Procedures Referred By Contac t Referred To Contact Radiology Diagnoses Subdural hematoma (HCC) SDH (subdural hematoma) (HCC) Procedures CT Head WO Contrast Baldo Bailey PA [address] [place] [address] Phone: tel: fax: [place] [address] [place] [address] Referral ID Status Reason Start Date Expiration Date Visits Re quested Visits Authorized [id number] Closed 04/10/2023 05/09/2024 1 1 EY BOY Encounter Details Date Type Department Care Team (Late st Contact Info) Description 04/10/2023 2:30 PM GALLEY BOY Office Visit [facility] Neurosurgery [address] [facility] [address] [place] [address] Baldo Bailey PA [address] [place] [address] Subdural hematoma (HCC) (Primary Dx); SDH (subdural hematoma) (HCC) Social History Tobacco Use Types Packs/Day Years [...] on file Legal Sex Male 12:56 AM GALLEY BOY Gender Identity Not on file Sexual Orientation [...] - Inhaled Oxygen Concentration - - Weight 101.7 kg (224 lb 3.2 oz) 04/10/2023 1:30 PM GALLEY BOY Height 185.4 cm (6' 1 ) 04/10/2023 1:30 PM GALLEY BOY Body Mass Index 29.58 04/10/2023 1:30 PM GALLEY BOY documented in this encounter Progress Notes * Baldo Bailey PA - 04/10/2023 2:30 PM CST RETURN VISIT Subjective HISTORY OF PRESENT ILLNESS Pleasant 77-year-old male returns to clinic for another evaluation, repeat CT head scan prior to arrival. The patient was transferred to [facility] from outside hospital in June of 2022 with findings of chronic subdural hematoma. This was originally treated conservatively however with continued complaints of headaches and blurriness and given persistent chronic nature of the subdural hematomas, MMA procedure was offered to the patient. With appreciation, the patient had may procedure done bilaterally with Dr. Grubbs in February of 2023. He returns with a repeat CT head scan today prior to arrival noting improvement of his headaches, pressure headaches denies any confusion forgetfulness. He does admit that his vision sensitivity has been notable at night that has continued to improve. His headaches have progressively been improving since an MMA procedure. He is very pleased with his postoperative course. While he does admit to some pressure type headaches that worsens with coughing, sneezing and bearing down, this is short-lived, not continuous. He admits that these pressure headaches are located along the top of the cranium and bifrontal region. VITAL SIGNS Ht 185.4 cm (6' 1 ) Wt 101.7 kg (224 lb 3.2 oz) BMI 29.58 kg/m?? ALLERGIES He is allergic to perfume, mold, augmentin [amoxicillin-pot clavulanate], cat dander, hydrocodone, and vicodin [hydrocodone-acetaminophen]. MEDICATIONS Current Outpatient Medications: diphenhydrAMINE 25 mg capsule, Take 1 tablet/capsule (25 mg total) by mouth every 6 (six) hours as needed for itching, Disp: , Rfl: famotidine (PEPCID) 40 mg tablet, Take 1 tablet (40 mg total) by mouth nightly, Disp: , Rfl: finasteride (PROSCAR) 5 mg tablet, Take 1 tablet (5 mg total) by mouth early head start director before breakfast, Disp: , Rfl: hydrOXYchloroQUINE (PLAQUENIL) 200 mg tablet, Take 2 tablets (400 mg total) by mouth daily Hasn't started taking yet. Awaiting Rheum. appointment, Disp: , Rfl: multivitamin capsule, Take 1 capsule by mouth every morning, Disp: , Rfl: omeprazole (PriLOSEC) 40 mg capsule, Take 1 capsule (40 mg total) by mouth every morning, Disp: , Rfl: senna-docusate (PERICOLACE) 8.6-50 mg, Take 1 tablet by mouth daily, Disp: 60 tablet, Rfl: 0 UNABLE TO FIND, Take 1 each by mouth nightly as needed THC gummie-25mg, Disp: , Rfl: vit A/vit C/vit E/zinc/copper (PRESERVISION AREDS ORAL), Take 1 capsule by mouth 2 (two) times a day, Disp: , Rfl: oxyCODONE (ROXICODONE) 5 mg immediate release tablet, Take 1 tablet (5 mg total) by mouth every 4 (four) hours as needed for pain (Patient not taking: Reported on 03/07/2023), Disp: 28 tablet, Rfl: 0 Objective PHYSICAL EXAM He is alert and oriented appears to be comfortable in the room today. Cranial nerves 2-12 grossly intact. There is no drift or dysmetria. No facial asymmetry is noted. Tongue protrudes midline. His affect is normal. He is answering questions appropriately. His memory is intact. He is ambulatory without difficulty. There is no sustained clonus. Skin is normal turgor and color. Cap refills normal limits. Block Press Operator strength is intact and equal. REVIEW OF IMAGING EXAMINATION: CT head without contrast HISTORY: Subdural hematomas TECHNIQUE: CT of the head was performed with images acquired from skull base to vertex without intravenous contrast. COMPARISON: Head CT dated 03/07/2023. FINDINGS: Postoperative changes of right middle meningeal artery embolization. No hyperdense embolization material seen on the expected location of the left middle meningeal artery. Stable bilateral convexity subdural collections. Topogram demonstrates no lytic lesions or fractures. Ventricles are of normal size and morphology. No mass effect or midline shift is present. The chacko-white matter differentiation is normal. The visualized portions of the orbits are normal. The visualized portions of the mastoids are normal. Scattered paranasal mucosal thickening No fractures are identified. Right sigmoid sinus diverticulum. Intracranial calcified atherosclerotic disease including along the A2 segments of both anterior cerebral arteries. IMPRESSION: Stable bilateral convexity subdural collections. Assessment/Plan Chronic subdural hematoma, left cerebellar convexity Persistent headaches Lower back pain, multilevel lumbar spondylosis PLAN Pleasant 77-year-old male returns to clinic for another discussion, repeat CT scan prior to arrival. The patient is status post an MMA bilateral procedure performed with Dr. Grubbs in February for chronic bilateral subdural hematomas. His CT scan today does show interval improvement of the decreased subdural hematomas and the patient is reporting improvement of his condition. While navya admit to some cranial pressure headaches that come on with a vasovagal reaction, this is intermittent. Overall, his headaches are significantly improved compared to preoperative. He is very pleased with the postoperative course since the MMA procedure was performed. Given that he is noting improvement subjective complaints and on imaging studies, we discussed repeat proximally 3 months with a re-evaluation. Baldo Bailey PA-C EY BOY documented in this encounter Plan of Treatment [...] stairs Contact your local community or senior center for information on exercise, fall prevention programs, or options for improving home safety. documented as of this encounter Results * CT Head WO Contrast (07/09/2023 12:10 PM GALLEY BOY) Anatomical Region Laterality Modality Head and Neck N/A Computed Tomogra phy 07/09/2023 12:2 6 PM GALLEY BOY Impressions 07/09/2023 2:32 PM GALLEY BOY Nearly resolved right and decreased left subdural hematomas. ??No interval acute intracranial abnormality. Dictated by: Caesar Lemus MD The radiology attending physician has personally reviewed this study, and had reviewed and/or edited this written report and agrees with it. Electronically signed by: Gabriela Gómez M.D. Narrative 07/09/2023 2:32 PM GALLEY BOY EXAMINATION: CT head without contrast HISTORY: Subdural hematoma follow-up status post bilateral middle meningeal artery embolization TECHNIQUE: CT of the head was performed with images acquired from skull base to vertex without intravenous contrast. COMPARISON: 03/25/2023, 03/07/2023 FINDINGS: Right middle meningeal artery embolization changes as noted. Nearly resolved trace right and improving left cerebral convexity subdural hematoma measuring up to 6 mm in maximum thickness on the left, previously measuring 8 mm. ??Prominent hypodense subdural collections in the posterior fossa, unchanged. A few scattered punctate bilateral subcortical, periventricular, and deep white matter hypodensities are nonspecific but likely represent chronic microvascular changes. There is no interval acute intracranial hemorrhage. Ventricles are of normal size and morphology. No mass effect or midline shift is present. The chacko-white matter differentiation is normal. The visualized portions of the orbits are normal. The visualized portions of the mastoids are normal. Partial ethmoidectomies and bilateral maxillary antrostomies noted mild scattered ethmoid air cell and frontal recesses mucosal thickening. No fractures are identified. Procedure Note Gabriela Gómez MD - 07/09/2023 EXAMINATION: CT head without contrast HISTORY: Subdural hematoma follow-up status post bilateral middle meningeal artery embolization TECHNIQUE: CT of the head was performed with images acquired from skull base to vertex without intravenous contrast. COMPARISON: 03/25/2023, 03/07/2023 FINDINGS: Right middle meningeal artery embolization changes as noted. Nearly resolved trace right and improving left cerebral convexity subdural hematoma measuring up to 6 mm in maximum thickness on the left, previously measuring 8 mm. Prominent hypodense subdural collections in the posterior fossa, unchanged. A few scattered punctate bilateral subcortical, periventricular, and deep white matter hypodensities are nonspecific but likely represent chronic microvascular changes. There is no interval acute intracranial hemorrhage. Ventricles are of normal size and morphology. No mass effect or midline shift is present. The chacko-white matter differentiation is normal. The visualized portions of the orbits are normal. The visualized portions of the mastoids are normal. Partial ethmoidectomies and bilateral maxillary antrostomies noted mild scattered ethmoid air cell and frontal recesses mucosal thickening. No fractures are identified. IMPRESSION: Nearly resolved right and decreased left subdural hematomas. No interval acute intracranial abnormality. Dictated by: Caesar Lemus MD The radiology attending physician has personally reviewed this study, and had reviewed and/or edited this written report and agrees with it. Electronically signed by: Gabriela Gómez M.D. Baldo CUM[facility] IMG CT PROCEDURES Final R esult documented in this encounter Visit Diagnoses Diagnosis Subdural hematoma (HCC)- Primary Subdural hemorrhage SDH (subdural hematoma) (HCC) Subdural hemorrhage Subdural hematoma (HCC) Subdural hemorrhage SDH (subdural hematoma) (HCC) Subdural hemorrhage documented in this encounter Care Teams Irrigator Gravity Flow Relationship Specialty Start Date End Date Grey Tomas MD PCP - General Family Practice 07/27/22 [place] [address] [facility] [address] [place] [address] Rheumatology 02/21/17 Lashay Downs, RN Registered Nurse Pain Management 06/17/17 Duke Do, RN Registered Nurse 09/09/17 Ngozi Petty MD Radiation Oncologist Radiation Oncology 02/05/19 Jose Roberto Marx MD Referring Physician Otolaryngology 02/05/19 documented as of this encounter
--- OUTSIDE RECORDS SUMMARY | 2024-06-14 16:46 | XMS_ITS | Encounter Summary ---
Author Organization [facility] Healthcare Address [address] [place] [address] Care Team Providers Care Cooker Soda Name Role Phone Criss Blanco MD Unavailable Lashay Downs RN Unavailable Unavailab Duke Goodwin RN Unavailable UnavailNgozi Husain MD Unavailable [phone] Jose Roberto Marx MD Unavailable [phone] Grey Tomas MD Primary Care Provider [phone] Encounter Details Date Type Department Care Team (Latest Contact Info) Description 10/23/2023 11:24 AM CDT - 10/23/2023 11:59 PM CDT Hospital Encounter [facility] [address] [place] [id number] Acute cough Discharge Disposition: Discharge to home or self [...] on file 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 Gender Identity Not on file Sexual Orientation Not on file Occupation Industry Job Start Date Job End Date Retired Not on file Not on file Not on file documented as of this encounter Medications at Time of Discharge fexofenadine (Hui Allergy) 180 mg tablet Take 1 tablet (180 mg total) by mouth daily 09/02/2023 finasteride (PROSCAR) 5 mg tabletIndications :benign prostatic hyperplasia with lower urinary tract sx Take 1 tablet (5 mg total) by mouth order expediter before breakfast multivitamin capsuleIndication s:Vitamin Deficiency Prevention Take 1 capsule by mouth every morning omeprazole (PriLOSEC) 40 mg capsule Take 1 capsule (40 mg total) by mouth every morning 08/13/2022 promethazine-DM (PROMETHAZINE-DM) 1.25-3 mg/mL syrupIndications: Cough Take 5-10 mL by mouth 4 (four) times a day as needed for cough 240 mL 10/23/2023 topiramate (TOPAMAX) 25 mg tablet Take 2 tablets (50 mg total) by mouth daily 07/24/2023 vit A/vit C/vit E/zinc/copper (PRESERVISION AREDS ORAL) Take 1 capsule by mouth 2 (two) times a day diphenhydrAMINE 25 mg capsule Take 1 tablet/capsule (25 mg total) by mouth every 6 (six) hours as needed for itching documented as of this encounter Discharge Disposition Disposition Code Departure Means Destination Discharge to home or self care documented in this encounter Miscellaneous Notes * Result Encounter Note - Claire Loyd NP - 10/23/2023 2:52 PM CDT Call pt regarding normal result- xray. No pneumonia documented in this encounter Plan of Treatment Not on file documented as of this encounter Goals Goal Patient Goal Type Associated Problems Recent Progress Patient-Stated? Author CCM Chronic Pain Care Plan Chronic Care Management Svetlana Puentes RN Note: Problem: Chronic Pain Goals: 1. [...] on stairs Contact your local community or [facility] for information on exercise, fall prevention programs, or options for improving home safety. documented as of this encounter Procedures Procedure Name Priority Date/Time Associated Diagnosis Comments XR CHEST PA LATERAL 2 VIEWS Schedule JUAQUIN, Read JUAQUIN (Appt Today, Awaiting Results) 10/23/2023 11:36 AM CDT Acute cough documented in this encounter Results * XR Chest PA Lateral 2 Views (10/23/2023 11:36 AM CDT) Anatomical Region Laterality Modality Body, Chest N/A Computed Radiogr aphy 10/23/2023 1:13 PM CDT Narrative 10/23/2023 1:14 PM CDT EXAM DESCRIPTION: XR CHEST PA LATERAL 2 VIEWS REASON FOR STUDY: pneumonia ?? Pt co cough and congestion x 2 days ?? States productive cough- clear ?? Denies surgeries to the chest ?? Denies any known chest conditions ?? TECHNIQUE: 2 ??radiographic view(s) of the chest. COMPARISON: 10/02/2023 FINDINGS: LUNGS: ??No focal opacity, pleural effusion, or pneumothorax. ?? HEART/MEDIASTINUM: ??Cardiac silhouette normal in size. Mediastinal and hilar contours appear normal. LINES/TUBES: ??None. BONES: ??No acute osseous abnormality. IMPRESSION: No acute cardiopulmonary abnormality. THIS IS AN ELECTRONICALLY VERIFIED FINAL REPORT 10/23/2023 1:14 PM - Electronically signed by ??Adryan Gary M.D. KR: KERI D: ??10/23/2023 1:14 PM T: ??10/23/2023 1:14 PM Report ID: [id number] Reading Location: ??[id number] Procedure Note Adryan Gary MD - 10/23/2023 EXAM DESCRIPTION: XR CHEST PA LATERAL 2 VIEWS REASON FOR STUDY: pneumonia Pt co cough and congestion x 2 days States productive cough- clearDenies surgeries to the chest Denies any known chest conditions TECHNIQUE: 2 radiographic view(s) of the chest. COMPARISON: 10/02/2023 FINDINGS: LUNGS: No focal opacity, pleural effusion, or pneumothorax. HEART/MEDIASTINUM: Cardiac silhouette normal in size. Mediastinal andhilar contours appear normal. LINES/TUBES: None. BONES: No acute osseous abnormality. IMPRESSION: No acute cardiopulmonary abnormality. THIS IS AN ELECTRONICALLY VERIFIED FINAL REPORT 10/23/2023 1:14 PM - Electronically signed by Adryan Gary M.D. KR: KERI Report ID: [id number] Reading Location: [id number] Claire Loyd CLOTH PRESSER IMG XR PROCEDURES Fin al Result documented in this encounter Visit Diagnoses Diagnosis Acute cough documented in this encounter Additional Health Concerns Infection Onset Date Last Indicated Resolved Time COVID: Suspected 10/23/2023 10/23/2023 10/24/2023 3:06 AM CDT documented as of this encounter Care Teams Cooker Soda Relationship Specialty Start Date End Date Grey Tomas MD PCP - General Family Practice 07/27/22 [place] [address] [place] [address] Rheumatology 02/21/17 Lashay Downs, RN Registered Nurse Pain Management 06/17/17 Duke Do, RN Registered Nurse 09/09/17 Ngozi Petty MD Radiation Oncologist Radiation Oncology 02/05/19 Jose Roberto Marx MD Referring Physician Otolaryngology 02/05/19 documented as of this encounter
--- OUTSIDE RECORDS SUMMARY | 2024-06-14 16:46 | XMS_ITS | Encounter Summary ---
Author Organization [facility] Healthcare Address [address] [place] [address] Care Team Providers Care Spot Remover Name Role Phone Criss Blanco MD Unavailable Lashay Downs RN Unavailable Unavailab Duke Goodwin RN Unavailable UnavailNgozi Husain MD Unavailable [phone] Jose Roberto Marx MD Unavailable [phone] Grey Tomas MD Primary Care Provider [phone] Reason for Visit * Auth/Cert (Routine) Specialty Diagnoses / Procedures Referred By Contac t Referred To Contact Diagnoses Subdural hematoma (HCC) Procedures n/a Referral ID Status Reason Start Date Expiration Date Visits Re quested Visits Authorized [id number] 1 1 Encounter Details Date Type Department Care Team (Late st Contact Info) Description 02/05/2023 1:18 PM CDT Anesthesia Event [facility] Neuro Interventional Radiology [address] [place] [address] Comfort Craven MD PhD [address] [place] [address] Juan Ramon Martin Dusty, CLERICAL ASSISTANT [address] [place] [address] Anesthesia Record Procedure Summary Procedure Name Responsible Anesthesiologist Anesthesia Start Time Anesthesia Stop Time IR PERMANENT OCCLUSION OR EMBOLIZATION PERCUTANEOUS DIRECTOR OF BANDS Comfort Craven MD PhD 02/05/23 1318 02/05/23 [...] No value filed. 1545 An Stop Meds Name Total lidocaine (cardiac) syringe 2 % 40 mg propofol 100 mg fentaNYL 100 mcg succinylcholine 100 mg rocuronium 30 mg phenylephrine 100 mcg/mL 500 mcg ondansetron PF (ZOFRAN) 2 mg/mL injectio n 4 mg glycopyrrolate 0.6 mg neostigmine injection 1 mg/mL 2 mg phenylephrine infusion (100 mcg/mL) 3.47 mg NS 0.9% 0 mL * Agents Name O2% N2O O2 N2O Air Sevoflurane Inspired Sevoflurane * Blood No blood administrations on file. Lines, Drains, and Airways Type Details Placement Removal Peripheral IV Placement Date: 10/23; Placement Time: 1137; Catheter Size: 20 G; Orientation: Left; Location: Hand; Site Prep: Chlorhexidine; Insertion Attempts: 1; Patient Tolerance: Tolerated well; Removal Date: 02/06/23; Removal Time: 1200; Removal Reason: Discharge 02/05/23 1137 by Alona Kmaara RN 02/06/23 1200 by Debbi Gresham, GAY Urethral Catheter Placement Date: 10/23; Placement Time: [...] Auscultation, Capnometry; Removal Date: 02/05/23; Removal Time: 15302/05/23 1341 by Juan Ramon Martin CRNA 02/05/23 1530 by Juan Ramon Martin CRNA documented in this encounter Social History Tobacco [...] on file 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 Gender Identity Not on file Sexual Orientation Not on file Occupation Industry Job Start Date Job End Date Retired Not on file Not on file Not on file documented as of this encounter OR Notes * Anesthesia Postprocedure Evaluation - Comfort Craven MD PhD - 02/05/2023 4:10 PM CDT Patient: Samuel Sanchez Procedure Summary Date: 02/05/23 Room / Location: [facility] Neuro Interventional Radiology Anesthesia Start: 1318 Anesthesia Stop: 1545 Procedure: IR PERMANENT OCCLUSION OR EMBOLIZATION PERCUTANEOUS DIRECTOR OF BANDS Diagnosis: Subdural hematoma (HCC) Subdural hematoma (HCC) Scheduled Providers: Juan Ramon Martin CRNA; Aston Grubbs MD; Comfort Craven MD PhD Responsible Provider: Comfort Craven MD PhD Anesthesia Type: general ASA Status: 3 Anesthesia Type: general Last vitals BP 138/76 Pulse 82 Temp 36.3 ??C (97.3 ??F) (Temporal) Resp 14 SpO2 95% Anesthesia Post Evaluation Patient location during evaluation: PACU Patient participation: complete - patient participated Level of consciousness: fully awake Pain score: 0 Pain management: satisfactory to patient Airway patency: adequate Evidence of recall: no Cardiovascular status: acceptable and hemodynamically stable Respiratory status: acceptable and room air Hydration status: acceptable Pt is: normothermic Nausea/Vomiting status: [place] [id number] step down No notable events documented. * Anesthesia Procedure Notes - Juan Ramon Martin CRNA - 02/05/2023 1:39 PM CDTAssociated Order(s): Airway Airway Patient location: OR Urgency: elective Indications for airway management: anesthesia Difficult airway: no Staff: Supervising provider: Comfort Craven MD PhD Placed by: CLERICAL ASSISTANT: Juan Ramon Martin CRNA Emergent airway documentation: Risks and benefits discussed: yes Consent obtained: yes Consent given by: patient Airway prep: Preoxygenated: yes Patient position: sniffing Mask difficulty assessment: 0 - not attempted Spontaneous ventilation during airway: absent Sedation level during airway: GA Final airway details: Final airway type: endotracheal airway Tube type: ETT ETT size: 8.0 mm Cuffed: yes Technique used for successful ETT placement: video laryngoscopy Devices/Methods used in placement: intubating stylet Insertion site: oral Blade type: Jorge Video blade type: Mcdaniels Blade size: 4 Cormack-Lehane (video): grade IIa - partial view of glottis Cuff volume: 8 mL Cuff inflated with: air ETT to teeth: 24 cm Placement verified by: auscultation and CO2 detection Airway secured with: silk tape Number of attempts: 1 Planned trial extubation: yes * Anesthesia Preprocedure Evaluation - Comfort Craven MD PhD - 02/01/2023 7:45 AM CDT Images from the original note were not included. [facility] Planning Preoperative Evaluation Record Evaluation type/location: [facility] Planned procedure site: Radiology Date: 02/01/23 Anesthesia Evaluation Samuel Sanchez is a 77 y.o. male * No surgery found * HISTORY HPI Samuel Sanchez is a 77 y.o. male w/ notable PMHx of SCC of vocal cords, factor IV leiden,GERD who is being evaluated preoperatively prior to planned IR permanent Occlusion or embolization percutaneous DIRECTOR OF BANDS for subdural hematoma Past Medical History Information obtained from: patient and chart. Neurological Pertinent negatives: seizures; neuromuscular disease; CVA/stroke and TIA Comments: Left cerebral convexity subdural hematoma, slightly increased in Size r/t mechanical fall 06/25 Cardiovascular Pertinent negatives: hypertension ; CAD ; ID ; CABG ; valvular heart disease; atrial fibrillation; pacemaker/ICD; DVT/PE; negative for CHF; drug-eluting stent(s) and bare metal stent(s) Respiratory Pertinent negatives: COPD; sleep apnea (BETSY); pulmonary hypertension; no O2 use outside the hospital and non-smoker Hepatic / Heme + History of thrombocytopenia (plts 147) Pertinent negatives: liver disease; history of anemia and history of Mohinder positive Comments: Factor XI leiden Gastrointestinal + GERD - on daily therapy. Symptoms < 1x/week. Renal / + Nephrolithiasis (stones 8-9; last episodes 1 year ago) Pertinent negatives: dialysis Musculoskeletal/Pain + Chronic pain - back pain. + Osteoarthritis Pertinent negatives: chronic opioid use and previous treatment for opioid use disorder Comments: Mild multilevel degenerative disc disease and moderate facet osteoarthritis of the lower lumbar spine. Cervical spondylosis. 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 + Rheumatological disease (on methotraxate- was on for years, d/c) - rheumatoid arthritis. Pertinent negatives: diabetes mellitus; thyroid disease; transplanted organ and infectious disease Functional Capacity Functional capacity: 4-6 METs Comments: Patient is able to walk 2-4 city blocks and up 2 flights of stairs without shortness of breath or chest pain. Bikes 2-3 miles daily Review of Systems + easy bruising (no excessive bleeding) + chronic pain + vision loss (glasses) + diarrhea (chronic) Pertinent negatives: productive cough; wheezing; SOB; recent cold/flu; fever; chest pain; palpitations (palpitations r/t augmentin); orthopnea; pedal edema; PND; previous transfusion; melena/hematochezia; bleeding problems; syncope; dizziness; muscle weakness; numbness/tingling; hard of hearing; nausea; dysphagia; dentures/partials; chipped/loose teeth; abdominal pain and no unexpected weight change Comments: Denies signs of UTI PAT Summary and Plans Cardiac risk classification of planned procedure: low cardiac risk. Preoperative assessment status: lab tests ordered and complete. Initial preoperative evaluation discussed with: Kellie Núñez MD Additional comments: Samuel Sanchez is a 77 y.o. male who is being evaluated prior to undergoing a low cardiac risk surgery. Revised Cardiac Risk Index factors are (none) for a total RCRI of 0 out of 6. Functional capacity is 4-6 METs. Obstructive sleep apnea (BETSY) screening status is STOP-Bang=3 suggesting moderate risk for BETSY, bicarbonate value pending Blood bank needs for day of procedure: No type and screen needed Pending labs/tests include: CBC BMP PT PTT Preoperative evaluation performed by Lisa Martin NP on 02/01/23 at 7:48 AM. . Follow up note Labs reviewed and are without significant findings. Surgeon's office reviews laboratory results independently. CPAP process complete. 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) Dysphonia Chronic migraine without aura without status migrainosus, not intractable Lumbar facet arthropathy Chronic bilateral low back pain without sciatica Lesion of vocal fold Malignant neoplasm of prostate (HCC) Dysplasia of larynx SDH (subdural hematoma) (HCC) Adenomatous polyp of colon 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 Flank pain Gastroesophageal reflux disease without esophagitis Chronic cough Chronic panethmoidal sinusitis Chronic pansinusitis Past Medical History: Diagnosis Date Allergic rhinitis Arthritis arthritis Calculus of kidney Nephrolithiasis Cancer of vocal cord (CMS/HCC) (HCC) Depression Gastric reflux Gastroesophageal reflux disease acid reflux Headache, tension-type History of multiple allergies allergies HX OTHER MEDICAL 1980 L shoulder HX OTHER MEDICAL 1981 R shoulder HX OTHER MEDICAL 1985 R shoulder bone spurs HX OTHER MEDICAL 1962 ear drum patch HX OTHER MEDICAL 1977 testicle HX OTHER MEDICAL Headache, migraine HX OTHER MEDICAL 1980 Bisept tendonitis HX OTHER MEDICAL 1993 Pinched Prostate HX OTHER MEDICAL 2000 kidney stone HX OTHER MEDICAL hemorroids; Comments: Had done [facility] in [place] HX OTHER MEDICAL bladder infection HX OTHER MEDICAL kidney stone Low back pain Migraine Rheumatoid arthritis (HCC) Past Surgical History: Procedure Laterality Date BICEPS TENODESIS Left 1969' COLONOSCOPY 03/14/2020 CYSTOSCOPY 2020 EAR SURGERY Left repair perforated eardrum 1969' KIDNEY STONE SURGERY LARYNGOSCOPY Right 01/09/2019 Direct laryngoscopy with biopsy LARYNGOSCOPY Right 02/16/2019 Suspension microlaryngoscopy with KTP laser photoablation Right vocal fold lesion LITHOTRIPSY 5 or 6 times - [id number] ORCHIECTOMY Right 1969' OTHER SURGICAL HISTORY 04/18/2020 Suspension microlaryngoscopy with KTP laser treatment-multiple PROSTATE SURGERY Pinched Prostate: surgically repaired ROTATOR CUFF REPAIR Right and removal of bone spurs SHOULDER SURGERY Right bone spurs VASECTOMY Allergies Allergen Reactions Perfume Swelling, Cough and Shortness of breath Mold Unknown Augmentin [Amoxicillin-Pot Clavulanate] Dizziness Cat Dander Eye irritation Hydrocodone Itching Vicodin [Hydrocodone-Acetaminophen] Itching Med List Status: Nurse Complete Set By: Viraj Collins RN at 02/01/2023 7:59 AM Taking? Last Dose Start Date End Date Provider diphenhydrAMINE 25 mg capsule Past Week -- -- ProviderEmmie MD famotidine (PEPCID) 40 mg tablet 01/31/2023 -- -- Emmie Reynoso MD finasteride (PROSCAR) 5 mg tablet 02/01/2023 -- -- Emmie Reynoso MD hydrOXYchloroQUINE (PLAQUENIL) 200 mg tablet Unknown 12/17/22 -- Emmie Reynoso MD multivitamin capsule 02/01/2023 -- -- Emmie Reynoso MD omeprazole (PriLOSEC) 40 mg capsule 02/01/2023 08/13/22 -- Emmie Reynoso MD UNABLE TO FIND Past Month -- -- Emmie Reynoso MD vit A/vit C/vit E/zinc/copper (PRESERVISION AREDS ORAL) 02/01/2023 -- -- Emmie Reynoso MD -- Patient not taking: -- -- -- Notes: -- -- -- -- -- -- -- -- -- -- Notes: -- -- Patient not taking: -- -- -- Patient not taking: -- -- Patient not taking: Current Outpatient Medications: diphenhydrAMINE 25 mg capsule famotidine (PEPCID) 40 mg tablet finasteride (PROSCAR) 5 mg tablet multivitamin capsule omeprazole (PriLOSEC) 40 mg capsule UNABLE TO FIND vit A/vit C/vit E/zinc/copper (PRESERVISION AREDS ORAL) hydrOXYchloroQUINE (PLAQUENIL) 200 mg tablet Social History Tobacco Use Smoking Status Former Packs/day: 1.50 Years: 30.00 Additional pack years: 0.00 Total pack years: 45.00 Types: Cigarettes Start date: 1958 Quit date: 1995 Years since quittin.6 Smokeless Tobacco Never Alcohol Use: Not At Risk (02/01/2023) AUDIT-C Frequency of Alcohol Consumption: 2-4 times a month Average Number of Drinks: 1 or 2 Frequency of Binge Drinking: Never Substance and Sexual Activity Drug Use Yes Types: Medical marijuana Family History Adopted: Yes Problem Relation Age of Onset Other Other adopted Other Other adopted Anesthesia problems Neg Hx PAT Physical Exam Airway Exam: Mallampati: II Cervical ROM: FROM TM distance: normal Upper lip bite test class: 2 Cardiovascular Exam: Rate: regular Rhythm: regular Negative for Murmur Negative for peripheral edema Pulmonary Exam: LCTA, bilat EENT Exam: trachea midline Dental Exam: Appears intact Skin Exam: Skin is warm. Turgor is normal. Abdominal exam: Abdomen is soft. Bowel sounds are present. Current state: Patient's current state is cooperative and interactive. Vitals: 02/01/23 0800 02/01/23 0803 BP: 124/75 129/85 Pulse: 65 Resp: 18 SpO2: 98% Relevant diagnostics: ECG(s): 07/03/22 Normal sinus rhythm Nonspecific T wave abnormality Echocardiogram(s): N/A Stress test(s): N/A Cardiac catheterization(s): N/A PFT(s): N/A Vascular studies: N/A Other: 01/17/23 CT head WO contrast MPRESSION: 1. Left cerebral convexity subdural hematoma, slightly increased in size. 2. New mixed attenuation right cerebral convexity subdural hematoma with a maximal thickness of 0.4 cm. 01/17/23 XE spine lumbar IMPRESSION: 1. 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 EGD 11/08/21 ([facility]) Impression: - Esophageal mucosal changes consistent with short-segment Pollard's esophagus. Biopsied. - Gastritis. Biopsied. - Normal cardia, gastric fundus and gastric body. - Normal duodenal bulb and second portion of the duodenum. PET CT 01/22/2019 ([facility]) IMPRESSION: Subtle asymmetric nodular thickening of the right vocal cord is not associated with increased FDG uptake. The lesion is likely too small to be reliably corrected by PET. No definite hypermetabolic focal head and neck mucosal lesion is identified. No hypermetabolic cervical lymphadenopathy seen. No distant metastasis. PT: No results found for requested labs within last 30 days. INR: No results found for requested labs within last 30 days. APTT: No results found for requested labs within last 30 days. Hgb A1C: No results found for requested labs within last 30 days. CBC RBC: No results found for requested labs within last 30 days. RDW: No results found for requested labs within last 30 days. MCHC: No results found for requested labs within last 30 days. MCH: No results found for requested labs within last 30 days. MCV: No results found for requested labs within last 30 days. Hct: No results found for requested labs within last 30 days. Hgb: No results found for requested labs within last 30 days. WBC: No results found for requested labs within last 30 days. MPV: No results found for requested labs within last 30 days. Platelets: No results found for requested labs within last 30 days. RDW CV: No results found for requested labs within last 30 days. RDW Sd: No results found for requested labs within last 30 days. BMP Glucose: No results found for requested labs within last 30 days. Calcium: No results found for requested labs within last 30 days. Sodium: No results found for requested labs within last 30 days. Potassium: No results found for requested labs within last 30 days. CO2: No results found for requested labs within last 30 days. Chloride: No results found for requested labs within last 30 days. BUN: No results found for requested labs within last 30 days. Creatinine: No results found for requested labs within last 30 days. STOP-Bang Total Score: 3 Marcelle index score: 100 Short Blessed Total Score: 0 DOS Physical Exam Medical history, medications, and allergies reviewed. Attestation: I endorse the findings of the anesthesia pre-evaluation assessment dated: 02/01/2023. Airway Exam: Mallampati: II Cervical ROM: FROM Cardiovascular Exam: Rate: regular Rhythm: regular Pulmonary Exam: LCTA, bilat Current state: Patient's current state is cooperative. Anesthesia Plan ASA 3 My patient is approved for the Anesthesia Controlled Medication protocol when under care of a CLERICAL ASSISTANT Planned anesthesia: General Team communication plan: oral ET tube Induction: Induction: intravenous. Informed Consent: Discussed plan with CLERICAL ASSISTANT. Anesthesia plan and risks discussed with patient. Plan and Consent Comments: No problems with prior anesthetics. No significant medical changes from the documented H&P. There is the risk of a life-threatening event occurring and this could lead to damage to organs in yourbody, even possibly . Comfort Craven MD PhD Consent and Attending signature: I and/or my designee have discussed the anesthesia plan, benefits, possible alternatives, parental presence at time of induction (if indicated), and clinically relevant risks that may include dental injury, unintentional awareness, and/or other complications. The patient and/or parent/legal guardian understand, and agree to proceed. All questions answered. documented in this encounter Plan of Treatment Not on file documented as of this encounter Goals Goal Patient Goal Type Associated Problems Recent Progress Patient-Stated? Author CCM Chronic Pain Care Plan Chronic Care Management No Svetlana Clay RN Note: Problem: Chronic Pain Goals: 1. Minimize further functional decline 2. Maximize quality of life 3. Control pain Strategies: - Activity/exercise program recommendation - Conservative stepwise pain medicine strategy with multi-disciplinary approach - Recommend healthy lifestyle strategies and compensatory methods as needed Reduce the likelihood of falling Lifestyle No Svetlana Clay RN Note: Below are four things you [...] on stairs Contact your local community or [facility] for information on exercise, fall prevention programs, or options for improving home safety. documented as of this encounter Procedures Procedure Name Priority Date/Time Associated Diagnosis Comments MA AN PROCEDURE PLACEHOLDER Routine 02/05/2023 1:39 PM CDT MA AN ELECTIVE ENDOTRACHEAL AIRWAY Routine 02/05/2023 1:39 PM CDT documented in this encounter Results * MA AN ELECTIVE ENDOTRACHEAL AIRWAY, MA AN PROCEDURE PLACEHOLDER (02/05/2023 1:39 PM CDT) Narrative Juan Ramon Martin CRNA - 02/05/2023 1:39 PM CDT Juan Ramon Martin CRNA ? 02/05/2023 ??1:41 PM Airway Patient location: OR Urgency: elective Indications for airway management: anesthesia Difficult airway: no Staff: Supervising provider: Comfort Craven MD PhD Placed by: CLERICAL ASSISTANT: Juan Ramon Martin Dusty, MARKO Emergent airway documentation: Risks and benefits discussed: yes Consent obtained: yes Consent given by: patient Airway prep: Preoxygenated: yes Patient position: sniffing Mask difficulty assessment: 0 - not attempted Spontaneous ventilation during airway: absent Sedation level during airway: GA Final airway details: Final airway type: endotracheal airway Tube type: ETT ETT size: 8.0 mm Cuffed: yes Technique used for successful ETT placement: video laryngoscopy Devices/Methods used in placement: intubating stylet Insertion site: oral Blade type: Jorge Video blade type: Mcdaniels Blade size: 4 Cormack-Lehane (video): grade IIa - partial view of glottis Cuff volume: 8 mL Cuff inflated with: air ETT to teeth: 24 cm Placement verified by: auscultation and CO2 detection Airway secured with: silk tape Number of attempts: 1 Planned trial extubation: yes Comfort Craven MD PhD ANESTHESIA ORDERABLES Final Result documented in this encounter Visit Diagnoses Not on filedocumented in this encounter Administered Medications Inactive Administered Medications - up to 3 most recent administrations Medication Order MAR Action Action Date Dose Rate Site fentaNYL (SUBLIMAZE) preservative free injection intravenous, As needed, Starting on Sat02/05/23 at 1322, Anesthesia Intra-op Given 02/05/2023 1:48 PM CDT 50 mcg Given 02/05/2023 1:22 PM CDT 50 mcg glycopyrrolate (ROBINUL) injection intravenous, Administer over 1 Minutes, As needed, Starting on Sat02/05/23 at 1405, Anesthesia Intra-op Given 02/05/2023 3:22 PM CDT 0.4 mg Given 02/05/2023 2:05 PM CDT 0.2 mg lidocaine (cardiac) (XYLOCAINE) preservative free injection intravenous, As needed, Starting on Sat02/05/23 at 1327, Anesthesia Intra-op, Indications: Ventricular ArrhythmiasIndications:Ventricular Arrhythmias Given 02/05/2023 1:27 PM CDT 40 mg neostigmine (PROSTIGMIN) injection intravenous, Administer over 3 Minutes, As needed, Starting on Sat02/05/23 at 1522, Anesthesia Intra-op Given 02/05/2023 3:22 PM CDT 2 mg ondansetron (ZOFRAN) injection intravenous, Administer over 2 Minutes, As needed, Starting on Sat02/05/23 at 1522, Anesthesia Intra-op Given 02/05/2023 3:22 PM CDT 4 mg phenylephrine (SAM-SYNEPHRINE) 1 mg/10 mL (100 mcg/mL) in sodium chloride 0.9% (premix) intravenous, As needed, Starting on Sat02/05/23 at 1328, Anesthesia Intra-op Given 02/05/2023 2:16 PM CDT 200 mcg Given 02/05/2023 2:10 PM CDT 100 mcg Given 02/05/2023 1:58 PM CDT 100 mcg phenylephrine (SAM-SYNEPHRINE) 5 mg/50 mL (100 mcg/mL) in sodium chloride 0.9% (premix) intravenous, Continuous PRN, Starting on Sat02/05/23 at 1409, Anesthesia Intra-op Rate/Dose Change 02/05/2023 3:13 PM CDT 0.3 mcg/kg/min 18.108 mL/hr Rate/Dose Change 02/05/2023 2:22 PM CDT 0.4 mcg/kg/min 24. 144 mL/hr New Bag 02/05/2023 2:13 PM CDT 0.5 mcg/kg/min 30.18 mL/ hr propofoL (DIPRIVAN) 10 mg/mL IV intravenous, As needed, Starting on Sat02/05/23 at 1327, Anesthesia Intra-op Given 02/05/2023 1:27 PM CDT 100 mg rocuronium (ZEMURON) injection intravenous, As needed, Starting on Sat02/05/23 at 1341, Anesthesia Intra-op Given 02/05/2023 1:41 PM CDT 30 mg sodium chloride 0.9% infusion intravenous, Continuous PRN, Starting on Sat02/05/23 at 1318, Anesthesia Intra-op New Bag 02/05/2023 1:18 PM CDT succinylcholine (ANECTINE) injection intravenous, As needed, Starting on Sat02/05/23 at 1328, Anesthesia Intra-op Given 02/05/2023 1:28 PM CDT 100 mg documented in this encounter Care Teams Spot Remover Relationship Specialty Start Date End Date Grey Toams MD PCP - General Family Practice 07/27/22 [place] [address] [facility] [address] [place] [address] Rheumatology 02/21/17 Lashay Downs, RN Registered Nurse Pain Management 06/17/17 Duke Do, RN Registered Nurse 09/09/17 Ngozi Petty MD Radiation Oncologist Radiation Oncology 02/05/19 Jose Roberto Marx MD Referring Physician Otolaryngology 02/05/19 documented as of this encounter
--- OUTSIDE RECORDS SUMMARY | 2024-06-14 16:46 | XMS_ITS | Encounter Summary ---
Author Organization [facility] Healthcare Address [address] [place] [address] Care Team Providers Care Life Science Research Assistant Name Role Phone Criss Blanco MD Unavailable Lashay Downs RN Unavailable Unavailab Duke Goodwin RN Unavailable UnavailNgozi Husain MD Unavailable [phone] Jose Roberto Marx MD Unavailable [phone] Grey Tomas MD Primary Care Provider [phone] Reason for Referral * MRI/CAT/PET Scan (Routine) - Closed Specialty Diagnoses / Procedures Referred By Alcira forrest Referred To Contact Radiology Diagnoses Subdural hematoma (HCC) SDH (subdural hematoma) (HCC) Procedures CT Head WO Contrast Baldo Bailey PA [address] [facility] [address] [place] [address] Phone: tel: fax: [facility] [address] [place] [address] Referral ID Status Reason Start Date Expiration Date Visits Re quested Visits Authorized [id number] Closed 04/10/2023 05/09/2024 1 1 OOD PROCESSOR Reason for Visit * MRI/CAT/PET Scan (Routine) - Closed Specialty Diagnoses / Procedures Referred By Contac t Referred To Contact Radiology Diagnoses Subdural hematoma (HCC) SDH (subdural hematoma) (HCC) Procedures CT Head WO Contrast Baldo Bailey PA [address] [place] [address] Phone: tel: fax: [facility] [place] [address] Referral ID Status Reason Start Date Expiration Date Visits Re quested Visits Authorized [id number] Closed 04/10/2023 05/09/2024 1 1 Encounter Details Date Type Department Care Team (Latest Contact Info) Description 07/09/2023 12:03 PM SEAFOOD PROCESSOR - 07/09/2023 11:59 PM SEAFOOD PROCESSOR Hospital Encounter [facility] Imaging [place] [address] Subdural hematoma (HCC); SDH (subdural hematoma) (HCC) Discharge Disposition: Discharge to home or self [...] on file Legal Sex Male 12:56 AM SEAFOOD PROCESSOR Gender Identity Not on file Sexual Orientation Not on file Occupation Industry Job Start Date Job End Date Retired Not on file Not on file Not on file documented as of this encounter Medications at Time of Discharge finasteride (PROSCAR) 5 mg tabletIndications :benign prostatic hyperplasia with lower urinary tract sx Take 1 tablet (5 mg total) by mouth public affairs officer before breakfast multivitamin capsuleIndication s:Vitamin Deficiency Prevention Take 1 capsule by mouth every morning omeprazole (PriLOSEC) 40 mg capsule Take 1 capsule (40 mg total) by mouth every morning 08/13/2022 vit A/vit C/vit E/zinc/copper (PRESERVISION AREDS ORAL) Take 1 capsule by mouth 2 (two) times a day diphenhydrAMINE 25 mg capsule Take 1 tablet/capsule (25 mg total) by mouth every 6 (six) hours as needed for itching 4 famotidine (PEPCID) 40 mg tablet Take 1 tablet (40 mg total) by mouth nightly 4 hydrOXYchloroQUIN E (PLAQUENIL) 200 mg tablet Take 2 tablets (400 mg total) by mouth daily Hasn't started taking yet. Awaiting Rheum. appointment 12/17/2022 4 oxyCODONE (ROXICODONE) 5 mg immediate release tabletIndications :Pain Take 1 tablet (5 mg total) by mouth every 4 (four) hours as needed for pain 28 tablet 02/06/2023 4 senna-docusate (PERICOLACE) 8.6-50 mg Take 1 tablet by mouth daily 60 tablet 02/06/2023 4 UNABLE TO FIND Take 1 each by mouth nightly as needed THC gummie-25mg 4 documented as of this encounter Discharge Disposition Disposition Code Departure Means Destination Discharge to home or self care documented in this encounter Plan of Treatment [...] stairs Contact your local community or senior [place] for information on exercise, fall prevention programs, or options for improving home safety. documented as of this encounter Procedures Procedure Name Priority Date/Time Associated Diagnosis Comments CT HEAD WO CONTRAST Schedule Routine, Read Routine (OP Routine) 07/09/2023 12:10 PM SEAFOOD PROCESSOR Subdural hematoma (HCC) SDH (subdural hematoma) (HCC) documented in this encounter Results * CT Head WO Contrast (07/09/2023 12:10 PM SEAFOOD PROCESSOR) Anatomical Region Laterality Modality Head and Neck N/A Computed Tomogra phy 07/09/2023 12:2 6 PM SEAFOOD PROCESSOR Impressions 07/09/2023 2:32 PM SEAFOOD PROCESSOR Nearly resolved right and decreased left subdural hematomas. ??No interval acute intracranial abnormality. Dictated by: Caesar Lemus MD The radiology attending physician has personally reviewed this study, and had reviewed and/or edited this written report and agrees with it. Electronically signed by: Gabriela Gómez M.D. Narrative 07/09/2023 2:32 PM SEAFOOD PROCESSOR EXAMINATION: CT head without contrast HISTORY: Subdural [...] it. Electronically signed by: Gabriela Gómez M.D. us Baldo Floyd [facility] CT PROCEDURES Final R esult documented in this encounter Visit Diagnoses Diagnosis Subdural hematoma (HCC) Subdural hemorrhage SDH (subdural hematoma) (HCC) Subdural hemorrhage documented in this encounter Care Teams Life Science Research Assistant Relationship Specialty Start Date End Date Grey Tomas MD PCP - General Family Practice 07/27/22 [place] [address] [facility] [address] [place] [address] Rheumatology 02/21/17 Lashay Downs, RN Registered Nurse Pain Management 06/17/17 Duke Do, RN Registered Nurse 09/09/17 Ngozi Petty MD Radiation Oncologist Radiation Oncology 02/05/19 Jose Roberto Marx MD Referring Physician Otolaryngology 02/05/19 documented as of this encounter
--- OUTSIDE RECORDS SUMMARY | 2024-06-14 16:46 | XMS_ITS | Encounter Summary ---
Author Organization [facility] Healthcare Address [address] [place] [address] Care Team Providers Care Plate Finisher Name Role Phone Criss Blanco MD Unavailable Lashay Downs RN Unavailable Unavailab Duke Goodwin RN Unavailable UnavailNgozi Husain MD Unavailable [phone] Jose Roberto Marx MD Unavailable [phone] Grey Tomas MD Primary Care Provider [phone] Encounter Details Date Type Department Care Team (Late st Contact Info) Description 01/31/2023 Orders Only [facility] Neuro Interventional Radiology [address] [place] [address] Carol Weaver SDH (subdural hematoma) (HCC) (Primary Dx) Social History Tobacco Use [...] on file Legal Sex Male 12:[address] Gender Identity Not on file Sexual Orientation [...] documented as of this encounter Results * (ABNORMAL) CBC with auto differential (02/01/2023 8:45 AM CDT) WBC 5.7 3.8 - 9.9 K/cumm [facility] Hgb 15.6 13.0 - 17.5 g/dL [facility] Hct 45.4 38.9 - 50.3 % [facility] Plt 147(L) 150 - 400 K/cumm [facility] MPV 11.1 9.1 - 12.3 fL [facility] RBC 5.00 4.30 - 5.80 M/cumm [facility] MCV 90.8 81.3 - 96.4 fL [facility] MCH 31.2 27.1 - 33.3 pg [facility] MCHC 34.4 32.3 - 35.7 g/dL [facility] RDW CV 13.7 11.1 - 14.9 % [facility] RDW SD 45.3 35.7 - 48.1 fL [facility] NRBC abs 0.00 0.00 - 0.01 K/cumm [facility] Blood 02/01/2023 8:45 AM CDT 02/01/2023 9:23 AM CDT Narrative [facility] - 02/01/2023 9:35 AM CDT CPAP ORDER Aston Grubbs MD LAB BLOOD ORDERABLES F inal Result [facility] Department [place] [address] * Basic metabolic panel (02/01/2023 8:45 AM CDT) Sodium 143 135 - 145 mmol/L [facility] Potassium, pl 4.0 3.3 - 4.9 mmol/L [facility] Chloride 106 97 - 110 mmol/L [facility] CO2 28 22 - 32 mmol/L [facility] Anion gap 9 2 - 15 mmol/L [facility] BUN 17 6 - 25 mg/dL [facility] Creatinine 1.11 0.80 - 1.30 mg/dL [facility] Glucose 94 70 - 199 mg/dL [facility] Comment: Interpretive Data Fasting glucose [...] classification and Diagnosis of Diabetes Diabetes Care 202; 46: S19-S40. Current interpretive data was last revised 2022. Calcium 9.3 8.5 - 10.3 mg/dL [facility] Blood 02/01/2023 8:45 AM CDT 02/01/2023 9:23 AM CDT Narrative ANDRE VALENZUELA - 02/01/2023 9:54 AM CDT CPAP ORDER Has the patient fasted?->No Aston Grubbs MD LAB BLOOD ORDERABLES F inal Result [facility] Department [place] [address] documented in this encounter Visit Diagnoses Diagnosis SDH (subdural hematoma) (HCC)- Primary Subdural hemorrhage Preoperative testing- Primary Unspecified pre-operative examination SDH (subdural hematoma) (HCC) Subdural hemorrhage documented in this encounter Care Teams Plate Finisher Relationship Specialty Start Date End Date Grey Tomas MD PCP - General Family Practice 07/27/22 [place] [address] [facility] [address] [place] [address] Rheumatology 02/21/17 Lashay Downs, RN Registered Nurse Pain Management 06/17/17 Duke Do, RN Registered Nurse 09/09/17 Ngozi Petty MD Radiation Oncologist Radiation Oncology 02/05/19 Jose Roberto Marx MD Referring Physician Otolaryngology 02/05/19 documented as of this encounter
--- OUTSIDE RECORDS SUMMARY | 2024-06-14 16:46 | XMS_ITS | Encounter Summary ---
Author Organization [facility] Healthcare Address [address] [place] [address] Care Team Providers Care Foster Care Worker Name Role Phone Criss Blanco MD Unavailable Lashay Downs RN Unavailable Unavailab Duke Goodwin RN Unavailable UnavailNgozi Husain MD Unavailable [phone] Jose Roberto Marx MD Unavailable [phone] Grey Tomas MD Primary Care Provider [phone] Reason for Visit * Reason Comments Elbow Pain Left elbow pain. Ons et: 08/15/23 Patient work up today with worse pain. Encounter Details Date Type Department Care Team (Late st Contact Info) Description 08/15/2023 11:00 AM CDT Office Visit [facility] at [address] [place] [address] Albina Sanchez, [place] [id number] Left elbow pain (Primary Dx) Social History Tobacco Use Types Packs/Day Years Used Date Smoking Tobacco: Former Cigarettes 1.5 37 1 959 - 1996 Smokeless Tobacco: Never Tobacco Cessation:Counseling Given: Yes Alcohol Use Standard Drinks/Week Comments Yes 3 [...] on file Legal Sex Male 12:56 AM FABRICATION LEAD Gender Identity Not on file Sexual Orientation Not on file Occupation Industry Job Start Date Job End Date Retired Not on file Not on file Not on file documented as of this encounter Last Filed Vital Signs Vital Sign Reading Time Taken Comments Blood Pressure 116/70 08/15/2023 10:44 AM CDT Pulse 75 08/15/2023 10:44 AM CDT Temperature 36.5 ??C (97.7 ??F) 08/15/2023 10:44 AM C DT Respiratory Rate 12 08/15/2023 10:44 AM CDT Oxygen Saturation 99% 08/15/2023 10:44 AM CDT Inhaled Oxygen Concentration - - Weight 97.5 kg (215 lb) 08/15/2023 10:44 AM CDT Height 182.9 cm (6') 08/15/2023 10:44 AM CDT Body Mass Index 29.16 08/15/2023 10:44 AM CDT documented in this encounter Patient Instructions * Patient Instructions* Albina Sanchez PA - 08/15/2023 11:00 AM CDT Thank you for allowing me to take care of you today! Rest and elevate your elbow. Apply ice to the elbow for 20 minutes on, 20 minutes off and repeat. You can take Tylenol or Motrin as directed for pain. Avoid any activities that worsen your pain. Follow up with your primary care provider. documented in this encounter Progress Notes * Albina Sanchez, ZOILA - 08/15/2023 11:00 AM CDT Images from the original note were not included. Subjective/Objective Patient ID: Samuel Sanchez is a 78 y.o. male. Chief Complaint Elbow Pain (Left elbow pain. Onset: 08/15/23 Patient work up today with worse pain.) Patient is an 78-year-old left-handed male who presents for evaluation of left elbow pain. Patient reports that the pain began a few days ago and worsened this morning. Patient denies injury or unusual physical activity prior to the onset of the pain. Patient reports that he does not do any repetitive movements of the elbow. He states that the pain surrounding the entire elbow. He denies numbness/ tingling in the left upper extremity. Review of Systems All systems reviewed and are negative or non contributory for this patient's presentation today other than as stated in the HPI. Physical Exam Constitutional: General: He is not in acute distress. Appearance: Normal appearance. He is not ill-appearing or toxic-appearing. HENT: Head: Normocephalic. Nose: Nose normal. Eyes: General: Lids are normal. Conjunctiva/sclera: Conjunctivae normal. Cardiovascular: Rate and Rhythm: Normal rate and regular rhythm. Pulses: Normal pulses. Heart sounds: Normal heart sounds. Pulmonary: Effort: Pulmonary effort is normal. Breath sounds: Normal air entry. Musculoskeletal: General: Swelling (Minimal to dorsal aspect of the left elbow) and tenderness (Throughout entire left elbow) present. Normal range of motion. Cervical back: Normal range of motion and neck supple. Skin: General: Skin is warm and dry. Findings: No bruising or erythema. Neurological: General: No focal deficit present. Mental Status: He is alert and oriented to person, place, and time. Mental status is at baseline. Sensory: No sensory deficit. Psychiatric: Mood and Affect: Mood normal. Behavior: Behavior normal. Vitals: 08/15/23 1044 BP: 116/70 BP Location: Right arm Patient Position: Sitting Pulse: 75 Resp: 12 Temp: 36.5 ??C (97.7 ??F) SpO2: 99% Weight: 97.5 kg (215 lb) Height: 182.9 cm (6') Assessment/Plan Thank you for allowing me to take care of you today! Rest and elevate your elbow. Apply ice to the elbow for 20 minutes on, 20 minutes off and repeat. You can take Tylenol or Motrin as directed for pain. Avoid any activities that worsen your pain. Follow up with your primary care provider. Diagnoses and all orders for this visit: Left elbow pain (Primary) - XR Elbow Left 3 or More Views; Future No results found for this or any previous visit (from the past 4 hour(s)). Patient Education: Disposition Treatment plan including expectations, follow up, and return precautions discussed with patient/parent, verbalizes understanding. Medication dosage, use, and potential adverse reactions discussed with patient/parent. Advised to follow up with PCP if symptoms do not resolve as expected or sooner if condition worsens. Signs/symptoms warranting ER evaluation reviewed. Patient and/or guardian was given an opportunity to ask questions, questions answered. ZOILA Geiger documented in this encounter Plan of Treatment [...] documented as of this encounter Results * XR Elbow Left [...] PM T: ??08/15/2023 12:28 PM Report ID: [id number] Reading Location: ??[id number] Procedure Note Chidi Singh MD - 08/15/2023 [...] Chidi Singh M.D. RB: SONAM Report ID: [id number] Reading Location: [id number] [facility] XR PROCEDURES F inal Result documented in this encounter Visit Diagnoses Diagnosis Left elbow pain- Primary Pain in joint, upper arm Left elbow pain Pain in joint, upper arm documented in this encounter Discontinued Medications Medication Sig Discontinue Reason Start Date End Da te famotidine (PEPCID) 40 mg tablet Take 1 tablet (40 mg total) by mouth nightly Therapy completed 08/15/2023 hydrOXYchloroQUINE (PLAQUENIL) 200 mg tablet Take 2 tablets (400 mg total) by mouth daily Hasn't started taking yet. Awaiting Rheum. appointment Therapy completed 12/17/2022 08/15/2023 oxyCODONE (ROXICODONE) 5 mg immediate release tabletIndications:Pain Take 1 tablet (5 mg total) by mouth every 4 (four) hours as needed for pain Therapy completed 02/06/2023 08/15/2023 senna-docusate (PERICOLACE) 8.6-50 mg Take 1 tablet by mouth daily Therapy completed 02/06/2023 08/15/2023 documented as of this encounter Historical Medications * This list may reflect changes made after this encounter. topiramate (TOPAMAX) 25 mg tablet Take 2 tablets (50 mg total) by mouth daily 07/24/2023 guaiFENesin-codei ne (GUAITUSS AC) liquid 100-10 mg/5 mL Take 10 mL by mouth 2 (two) times a day 07/24/2023 10/23/2023 added in this encounter Care Teams Foster Care Worker Relationship Specialty Start Date End Date Grey Tomas MD PCP - General Family Practice 07/27/22 [place] [address] [facility] [address] [place] [address] Rheumatology 02/21/17 Lashay Downs, RN Registered Nurse Pain Management 06/17/17 Duke Do, GAY Registered Nurse 09/09/17 Ngozi Petty MD Radiation Oncologist Radiation Oncology 02/05/19 Jose Roberto Marx MD Referring Physician Otolaryngology 02/05/19 documented as of this encounter
--- OUTSIDE RECORDS SUMMARY | 2024-06-14 16:46 | XMS_ITS | Encounter Summary ---
Author Organization [facility] Address [address] [place] [address] Phone Care Team Providers Care Computational Physicist Name Role Phone Criss Blanco MD Unavailable Lashay Downs RN Unavailable Unavailab Duke Goodwin RN Unavailable UnavailNgozi Husain MD Unavailable [phone] Joes Roberto Marx MD Unavailable [phone] Grey Tomas MD Primary Care Provider [phone] Encounter Details Date Type Department Care Team (Late st Contact Info) Description 03/07/2023 Telephone [facility] Neurosurgery [address] [facility] Advanced Medicine [address]th [place] [address] [place] [address] Aston Grubbs MD [address] [place] [address] Social History Tobacco Use Types Packs/Day Years [...] on file Legal Sex Male 12:56 AM DESIGN ENG Gender Identity Not on file Sexual Orientation Not on file Occupation Industry Job Start Date Job End Date Retired Not on file Not on file Not on file documented as of this encounter Miscellaneous Notes * Telephone Encounter - Kristyn Myles CMA - 03/07/2023 3:43 PM CDT Per Av follow up CTH 1 month new Bailey documented in this encounter Plan of Treatment [...] on filedocumented in this encounter Care Teams Computational Physicist Relationship Specialty Start Date End Date Grey Tomas MD PCP - General Family Practice 07/27/22 [place] [address] [facility] [address] [place] [address] Rheumatology 02/21/17 Lashay Downs, RN Registered Nurse Pain Management 06/17/17 Duke Do, RN Registered Nurse 09/09/17 Ngozi Petty MD Radiation Oncologist Radiation Oncology 02/05/19 Jose Roberto Marx MD Referring Physician Otolaryngology 02/05/19 documented as of this encounter
--- OUTSIDE RECORDS SUMMARY | 2024-06-14 16:46 | XMS_ITS | Encounter Summary ---
Author Organization [facility] Healthcare Address [address] [place] [address] Care Team Providers Care Sourcing Engineer Name Role Phone Criss Blacno MD Unavailable Lashay Downs RN Unavailable Unavailab Duke Goodwin RN Unavailable UnavailNgozi Husain MD Unavailable [phone] Jose Roberto Marx MD Unavailable [phone] Grey Tomas MD Primary Care Provider [phone] Reason for Visit * Reason Comments 2 mo F/U PFT, and CXR Encounter Details Date Type Department Care Team (Late st Contact Info) Description 11/26/2023 11:00 AM CDT Office Visit [facility] Pulmonary at [address] [place] [address] Zelda Sánchez, JOSEPH [address] [place] [address] [address] [place] [address] Chronic cough (Primary Dx); Gastroesophageal reflux disease without esophagitis; 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); Non-seasonal allergic rhinitis, unspecified trigger Social History Tobacco Use Types Packs/Day Years Used Date Smoking Tobacco: Former Cigarettes 1.5 37 1 959 - 1995 Smokeless Tobacco: Never Tobacco Cessation:Counseling Given: Not [...] on file 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 PULMONARY CLINIC NOTE Visit Date: 11/26/2023 Chief Complaint: Presents today for Chronic cough HPI: Samuel Sanchez is a 78 y.o. 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 He was originally evaluated in September 2023 and at that time he reported cough that had been persistent for several years. His cough worsened in July 2023 and at that time he did have some sick symptoms. Cough was productive of clear to white phlegm. He endorsed headache with coughing worse sincesubdural hematoma in February 2023. He also reported uncontrolled GERD symptoms and frequent allergy symptoms despite maintenance medication. He underwent pulmonary function testing which was normal. Chest imaging was also normal. Unfortunately symptoms worsened to the point where he presented to the urgent care mid-October and was prescribed cough syrup after respiratory viral panel was negative. He reported no clinical benefit from the cough syrup. He the presented to emergency room several days later for unresolved symptoms. He was prescribed antibiotics and reports these lent no clinical benefit either. He was then evaluated at [facility] and prescribed tessalon and albuterol MDI. He tells me that he completed the full course of tessalon and used the albuterol with improvement. Today he reports that his cough is not resolved but is significantly improved. He continues to report sinus drainage and rhinorrhea. Despite PPI BID he has daily GERD symptoms. He denies dyspnea, hemoptysis,fever/chills, unintentional weight loss, night sweats, wheezing and chest pain. He does endorse some sensitivity to strong scents, he has had to avoid [facility] because of the perfume worn by the women. 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) Depression Gastric reflux Gastroesophageal reflux disease acid [...] OTHER MEDICAL hemorroids; Comments: [facility] done [facility] [place] HX OTHER MEDICAL bladder infection HX OTHER MEDICAL kidney stone Low back pain Migraine Non-seasonal allergic rhinitis 11/26/2023 Rheumatoid arthritis (HCC) Family History: Family History Adopted: Yes Problem Relation Age of Onset Other Other adopted Other Other adopted Anesthesia problems Neg Hx Social History: Former smoker Quit in 1995 Smoked 1 PPD for over 40 years Review of Systems: Review of Systems Constitutional: Negative for activity change, chills, fatigue and unexpected weight change. HENT: Negative for congestion, postnasal drip, rhinorrhea, sinus pressure, sore throat and voice change. Eyes: Negative for visual disturbance. Respiratory: Positive for cough. Negative for chest tightness, shortness of breath and wheezing. Denies hemoptysis Cardiovascular: Negative for chest pain, palpitations and leg swelling. Gastrointestinal: Denies GERD Genitourinary: Negative for difficulty urinating. Musculoskeletal: Negative for arthralgias and joint swelling. Skin: Negative for rash. Neurological: Negative for weakness. Hematological: Negative for adenopathy. Psychiatric/Behavioral: Negative for sleep disturbance. OBJECTIVE: Physical Exam: Vitals: 11/26/23 1101 BP: 130/70 BP Location: Left arm Patient Position: Sitting Pulse: 78 Resp: 16 Temp: 36.3 ??C (97.3 ??F) TempSrc: Temporal SpO2: 98% Weight: 96.9 kg (213 lb 11.2 oz) Height: 182.9 cm (6') Physical Exam Constitutional: Appearance: Normal appearance. HENT: Head: Normocephalic. Nose: No congestion or rhinorrhea. Mouth/Throat: Mouth: Mucous membranes are moist. Eyes: Pupils: Pupils are equal, round, and reactive to light. Neck: Comments: No supraclavicular adenopathy Cardiovascular: Rate and Rhythm: Normal rate and regular rhythm. Heart sounds: No murmur heard. Pulmonary: Effort: Pulmonary effort is normal. No tachypnea or respiratory distress. Breath sounds: No decreased air movement. No decreased breath sounds, wheezing, rhonchi or rales. Abdominal: General: Bowel sounds are normal. Palpations: Abdomen is soft. Tenderness: There is no abdominal tenderness. Musculoskeletal: General: No swelling. Right lower leg: No edema. Left lower leg: No edema. Lymphadenopathy: Cervical: No cervical adenopathy. Skin: General: Skin is warm and dry. Nails: There is no clubbing. Neurological: General: No focal deficit present. Mental Status: He is alert and oriented to person, place, and time. Psychiatric: Mood and Affect: Mood normal. Data Review: No significant erythrocytosis Fblv-vi-syvgcoyj peripheral eosinophilia Chest x-ray PA and lateral 10/23/2023 Personally reviewed No acute cardiopulmonary abnormality Pulmonary Functions Testing Results: 10/02/2023: Personally reviewed No obstruction or restriction noted, normal pulmonary function test FEV1/FVC 96% predicted FEV1 98% predicted FVC 101% predicted TLC 96% predicted RV 108% predicted DLCO 93% predicted not adjusted No significant bronchodilator response ASSESSMENT AND PLAN Diagnoses and all orders for this visit: Chronic cough (Primary) Assessment & Plan: Interestingly this is almost completely resolved after 5 days of Tessalon Perles and albuterol use I do think that uncontrolled GERD and sinus drainage play a large role in his chronic cough howeverit does sound as if he had a respiratory infection in July that may have prolonged and worsenedhis cough. He had no response to antibiotic therapy, steroids or cough syrup. His pulmonary function testing and chest imaging were normal Gastroesophageal reflux disease without esophagitis Assessment & Plan: Symptoms persistent despite PPI twice daily Start famotidine 40 mg p.o. daily We have discussed the relationship between chronic uncontrolled GERD and symptoms such as cough, wheezing, dyspnea. Elevate head of bed while sleeping Avoid tight clothing Avoid eating 2-3 hours before bed Avoid trigger foods I have strongly encouraged him to establish with GI Orders: - famotidine (PEPCID) 40 mg tablet; Take 1 tablet (40 mg total) by mouth daily Squamous cell carcinoma of larynx (CMS/HCC) ([facility]) Assessment & Plan: He is due for follow-up with Oncology with scope, his appointment as scheduled for January 21, 2024 Non-seasonal allergic rhinitis, unspecified trigger Assessment & Plan: Continue montelukast 10 mg once daily OTC antihistamine daily Avoid triggers Saline nasal rinses Zelda Sánchez NP Cosigned by Carlos Perez MD at 11/27/2023 1:42 PM CDT documented in this encounter Miscellaneous Notes * Assessment & Plan Note - Zelda Sánchez NP - 11/26/2023 3:48 PM CDT Associated Problem(s): Non-seasonal allergic rhinitis Continue montelukast 10 mg once daily OTC antihistamine daily Avoid triggers Saline nasal rinses * Assessment & Plan Note - Zelda Sánchez NP - 11/26/2023 3:46 PM CDT Associated Problem(s): Chronic cough Interestingly this is almost completely resolved after 5 days of Tessalon Perles and albuterol use I do think that uncontrolled GERD and sinus drainage play a large role in his chronic cough howeverit does sound as if he had a respiratory infection in July that may have prolonged and worsenedhis cough. He had no response to antibiotic therapy, steroids or cough syrup. His pulmonary function testing and chest imaging were normal * Assessment & Plan Note - Zelda Sánchez NP - 11/26/2023 3:44 PM CDT Associated Problem(s): Gastroesophageal reflux disease without esophagitis Symptoms persistent despite PPI twice daily Start famotidine 40 mg p.o. daily We have discussed the relationship between chronic uncontrolled GERD and symptoms such as cough, wheezing, dyspnea. 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 for information on exercise, fall prevention programs, or options for improving home safety. 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 albuterol HFA (PROVENTIL HFA,VENTOLIN HFA,PROAIR HFA) 90 mcg/actuation inhaler Inhale 2 puffs every 4 (four) hours as needed 11/03/2023 added in this encounter Care Teams Sourcing Engineer Relationship Specialty Start Date End Date Grey Tomas MD PCP - General Family Practice 07/27/22 [place] [id number] [address] Rheumatology 02/21/17 Lashay Downs, RN Registered Nurse Pain Management 06/17/17 Duke Do, RN Registered Nurse 09/09/17 Ngozi Petty MD Radiation Oncologist Radiation Oncology 02/05/19 Jose Roberto Marx MD Referring Physician Otolaryngology 02/05/19 documented as of this encounter
--- OUTSIDE RECORDS SUMMARY | 2024-06-14 16:46 | XMS_ITS | Encounter Summary ---
Author Organization [facility] Address [address] [place] [address] Phone Care Team Providers Care Lab Director Name Role Phone Criss Blanco MD Unavailable Lashay Downs RN Unavailable Unavailab Duke Goodwin RN Unavailable UnavailNgozi Husain MD Unavailable [phone] Jose Roberto Marx MD Unavailable [phone] Grey Tomas MD Primary Care Provider [phone] Encounter Details Date Type Department Care Team (Late st Contact Info) Description 04/12/2023 Telephone [facility] [address] [facility] [address] [place] [address] Baldo Bailey PA [address] [place] [address] Social History Tobacco Use Types Packs/Day Years [...] on file 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 Please come the [facility]; Radiology at 11:50 am for your HCT. Once complete, please come to [address] at 1:15 pmto see Baldo. If you have any questions please reach out through [employer] or call our office at [phone]. Thank you! [employer] message and appt reminders mailed. OGENERATOR OPERATOR * Telephone Encounter - Che Escobar - 04/12/2023 10:28 AM CST ----- Message from ZOILA Murphy sent at 04/10/2023 2:44 PM TURBOGENERATOR OPERATOR ----- Regarding: repeat CT head scan in three months Can we please arrange a repeat CT head scan and inperson eval in three months? OGENERATOR OPERATOR documented in this encounter Plan of [...] on stairs Contact your local community or [facility] for information on exercise, fall prevention programs, or options for improving home safety. documented as of this encounter Visit Diagnoses Not on filedocumented in this encounter Care Teams Lab Director Relationship Specialty Start Date End Date Grey Tomas MD PCP - General Family Practice 07/27/22 [place] [address] [facility] [address] [place] [address] Rheumatology 02/21/17 Lashay Downs, RN Registered Nurse Pain Management 06/17/17 Duke Do, RN Registered Nurse 09/09/17 Ngozi Petty MD Radiation Oncologist Radiation Oncology 02/05/19 Jose Roberto Marx MD Referring Physician Otolaryngology 02/05/19 documented as of this encounter
--- OUTSIDE RECORDS SUMMARY | 2024-06-14 16:46 | XMS_ITS | Encounter Summary ---
Author Organization [facility] Healthcare Address [address] [place] [address] Care Team Providers Care Program Director Group Work Name Role Phone Criss Blanco MD Unavailable Lashay Downs RN Unavailable Unavailab Duke Goodwin RN Unavailable UnavailNgozi Husain MD Unavailable [phone] Jose Roberto Marx MD Unavailable [phone] Grey Tomas MD Primary Care Provider [phone] Encounter Details Date Type Department Care Team (Late st Contact Info) Description 12/27/2023 Telephone [facility] Pulmonary at [address] [place] [address] Carlos Perez MD [address] [place] [address] [address] [place] [address] Social History Tobacco Use Types Packs/Day Years Used Date Smoking Tobacco: Former Cigarettes 1.5 37 1 959 - 1996 Smokeless Tobacco: Never Alcohol Use Standard Drinks/Week [...] on file 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 documented as of this encounter Visit Diagnoses Not on filedocumented in this encounter Care Teams Program Director Group Work Relationship Specialty Start Date End Date Grey Tomas MD PCP - General Family Practice 07/27/22 [place] [address] [facility] [address] [place] [address] Rheumatology 02/21/17 Lashay Downs, RN Registered Nurse Pain Management 06/17/17 Duke Do, RN Registered Nurse 09/09/17 Ngozi Petty MD Radiation Oncologist Radiation Oncology 02/05/19 Jose Roberto Marx MD Referring Physician Otolaryngology 02/05/19 documented as of this encounter
--- OUTSIDE RECORDS SUMMARY | 2024-06-14 16:46 | XMS_ITS | Encounter Summary ---
Author Organization [facility] Healthcare Address [address] [place] [address] Care Team Providers Care Owner [employer] Name Role Phone Criss Blanco MD Unavailable Lashay Downs RN Unavailable Unavailab Duke Goodwin RN Unavailable UnavailNgozi Husain MD Unavailable [phone] Jose Roberto Marx MD Unavailable [phone] Grey Tomas MD Primary Care Provider [phone] Reason for Referral * Diagnostic Imaging (Routine) - Closed Specialty Diagnoses / Procedures Referred By Contac t Referred To Contact Radiology Diagnoses Subdural hematoma (HCC) Procedures IR Permanent Occlusion or Embolization BREAST WORKER Aston Grubbs MD [address] [facility] [address] [place] [address] Phone: tel: fax: [address] [phone] Referral ID Status Reason Start Date Expiration Date Visits Re quested Visits Authorized [id number] Closed 01/31/2023 03/01/2024 1 1 Reason for Visit * Auth/Cert (Routine) Specialty Diagnoses / Procedures Referred By Contac t Referred To Contact Diagnoses Subdural hematoma (HCC) Procedures n/a Referral ID Status Reason Start Date Expiration Date Visits Re quested Visits Authorized [id number] 1 1 Encounter Details Date Type Department Care Team (Late st Contact Info) Description 02/05/2023 5:11 PM CDT - 02/06/2023 1:10 PM CDT Hospital Encounter [facility] [address] [place] [address] Aston Grubbs MD [address] [place] [address] Juan Ramon Martin Dusty, MANAGER STATE [address] [place] [address] Comfort Craven MD PhD [address] [place] [address] Subdural hematoma (HCC) Discharge Disposition: Discharge to home or [...] on file Legal 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 Gender Identity Not on file Sexual Orientation Not on file Occupation Industry Job Start Date Job End Date Retired Not on file Not on file Not on file documented as of this encounter Last Filed Vital Signs Vital Sign Reading Time Taken Comments Blood Pressure 119/82 02/06/2023 6:00 AM CDT Pulse 72 02/06/2023 6:00 AM CDT Temperature 36.9 ??C (98.5 ??F) 02/06/2023 6:00 AM CD T Respiratory Rate 15 02/06/2023 6:00 AM CDT Oxygen Saturation 92% 02/06/2023 6:00 AM CDT Inhaled Oxygen Concentration - - Weight 98 kg (216 lb) 02/05/2023 9:00 PM CDT Height 185.4 cm (6' 1 ) 02/05/2023 9:00 PM CDT Body Mass Index 28.5 02/05/2023 9:00 PM CDT documented in this encounter Discharge Summaries * Sophy Queen, DUMPSTER DRIVER - 02/06/2023 5:32 AM CDT Inpatient Discharge Summary BRIEF OVERVIEW Admitting Provider: Aston Grubbs MD Discharge Provider: Aston Grubbs MD Primary Care Physician at Discharge: Grey Tomas MD [phone] Admission Date: 02/05/2023 Discharge Date: 02/06/2023 Admission Location: [facility] Problems/Diagnoses: Principal Problem: Subdural hematoma (HCC) Resolved Problems: No resolved hospital problems. DETAILS OF HOSPITAL STAY Presenting Problem/History of Present Illness: 77 y.o. male h/o headaches after a fall with headstrike who was found to CT to have a L sided subdural hematoma initially and to develop new right sided subdural hematoma on interval CT scans. The patient did not have surgery but was recommended for a bilateral middle meningeal artery embolization. The patient denies any weakness in an arm or leg. He denies any visual deficits. No sensation deficits. Hospital Course: 02/05 Bilateral MMA embolization. Post angio check ok. Problems addressed during this hospitalization: SDH -- s/p MMA embo 2. Acute pain: -- Pain well controlled on oral regimen. 3. BPH -- cont home finasteride 5mg daily. Procedures: 02/05 Bilateral MMA embolization. Consults: none GI/ Concerns: Tolerating regular diet. 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 Koenig removed on 02/06, now voiding spontaneously. Therapy recommendations: No PT/OT evaluation Incision: R Groin intact Brace: N/A Surgical drains: N/A Notable medications: Pain medications: royal prn, oxycodone prn Steroids: none Antibiotics: none Anticoagulation/antiplatelet agents: none Anti-epileptic drugs: none Follow-up: Neurosurgery: Tasked for 4 weeks with HCT . Other services: Primary Care Physician Lab tests/imaging necessary on follow-up: no additional scans/tests necessary Operative Procedures Performed: * No procedures listed * Pertinent Test Results: No results found. Discharge Details Physical Exam at Discharge: Discharge Condition: stable Pulse: 72 Resp: 15 BP: 119/82 Temp: 36.9 ??C (98.5 ??F) Weight: 98 kg (216 lb) Pertinent Exam Findings at Discharge: OE spont, R, FC Ox3 PERRL, EOMI, F=, TML BUE 5/5 BLE 5/5 No drift R groin access site ok Discharge Disposition: Discharge to home or self carehome Code Status at Discharge: full code Discharge Instructions: SEE AVS Discharge Medications: Current Medications TAKE these medications diphenhydrAMINE 25 mg capsule Take 1 tablet/capsule (25 mg total) by mouth every 6 (six) hours as needed for itching Commonly known as: BENADRYL famotidine 40 mg tablet Take 1 tablet (40 mg total) by mouth nightly Commonly known as: PEPCID finasteride 5 mg tablet Take 1 tablet (5 mg total) by mouth early childhood teacher assistant before breakfast For: enlarged prostate with urination problem Commonly known as: PROSCAR hydrOXYchloroQUINE 200 mg tablet Take 2 tablets (400 mg total) by mouth daily Hasn't started taking yet. Awaiting Rheum. appointment Commonly known as: PLAQUENIL multivitamin capsule Take 1 capsule by mouth every morning For: treatment to prevent vitamin deficiency omeprazole 40 mg capsule Take 1 capsule (40 mg total) by mouth every morning Commonly known as: PriLOSEC oxyCODONE 5 mg immediate release tablet Take 1 tablet (5 mg total) by mouth every 4 (four) hours as needed for pain For: pain Commonly known as: ROXICODONE PRESERVISION AREDS ORAL Take 1 capsule by mouth 2 (two) times a day senna-docusate 8.6-50 mg Take 1 tablet by mouth daily Commonly known as: PERICOLACE UNABLE TO FIND Take 1 each by mouth nightly as needed THC gummie-25mg Outpatient Follow-Up: Future Appointments Date Time Provider Department Center 02/27/2023 4:00 PM Nakita Herrera MD [facility] L20 [facility] Cosigned by Aston Grubbs MD at 02/06/2023 12:44 PM CDT Associated attestation - Aston Grubbs MD - 02/06/2023 12:44 PM CDT I have seen and examined the patient on 02/06/23, and reviewed relevant laboratory and imaging data/reports. I agree with the findings and plan of care as documented in the CHINO's discharge summary. Aston Grubbs MD Cerebrovascular/Endovascular & Skull Base Tumor Round Boner[employer] Bag Stripper of Neurological Surgery, Radiology and Neurology [facility], [place], [facility] Office: [phone] documented in this encounter Discharge Instructions * Discharge Instructions* Sophy Queen NP - 02/06/2023 5:39 AM CDT Discharge Instructions Cerebral Angiogram Your doctor performed an angiogram to evaluate the blood vessels in your head and neck using xrays and dye. This was performed by placing a catheter in the blood vessels in your wrist or groin. You might have also had stents or coils placed in the blood vessels in your head during this procedure. The following are instructions and guidelines meant to help in your recovery once you have been discharged from the hospital. When to call our office Although your recovery will likely be uneventful, you may have some headaches and wrist or groin pain (depending on the access site for the angiogram). Call our office immediately (phone numbers listed at the end of these instructions) if you experience the following symptoms: Drainage from the wound Increased redness or pain at the incision site Fever greater than 101??F Nausea or vomiting Change in mental status Seizures Intractable headache Pain not relieved by pain medication or rest Call 911 immediately if you experience the following symptoms: Sudden weakness or difficulty speaking and/or swallowing Sudden onset persistent headache, with nausea and/or vomiting Sudden change or loss of vision New difficulty with breathing Chest pain Wound care Keep your incision clean. Do NOT use lotions, ointments, or creams on the incision. You may shower starting today. If you have a gauze dressing covering your wound, remove it after your first shower. DO NOT submerge yourself in any water that will cover the incision (bathtub, hot tub, swimming pool) for one week. Activity You may feel tired and run down for a period of time. It is normal to sleep more or take more naps.Light activity is ok but avoid heavy house work, yard work or strenuous exercise. Short walks are encouraged. Activities can be slowly increased as tolerated. Do not lift anything heavier than 5-10 pounds, or a gallon of milk, for 1 week. You can return to work in 1 week. If you need a work release, please contact Carol Weaver at . Diet You can return to your usual diet, unless instructed otherwise by your doctor. Follow up - Neurosurgery: You should follow up in Dr. Grubbs's clinic in 4 [address] a head CT. If you do not have a follow-up appointment, call to schedule one. Phone numbers Doctor???s Office: Dr. Aston Grubbs, Carol Weaver (interventional neuroradiology nurse coordinator): After hours emergency: please contact [facility] at and ask to speak to the interventional neuroradiology fellow fire prevention captain. documented in this encounter Medications at Time of Discharge finasteride (PROSCAR) 5 mg tabletIndications :benign prostatic hyperplasia with lower urinary tract sx Take 1 tablet (5 mg total) by mouth early childhood teacher assistant before breakfast multivitamin capsuleIndication s:Vitamin Deficiency Prevention [...] gummie-25mg 4 documented as of this encounter Ordered Prescriptions Prescription Sig Dispense Quantity Refills Last Filled Start Date End Date oxyCODONE (ROXICODONE) 5 mg immediate release tabletIndications: Pain Take 1 tablet (5 mg total) by mouth every 4 (four) hours as needed for pain 28 tablet 02/06/2023 08/15/2023 senna-docusate (PERICOLACE) 8.6-50 mg Take 1 tablet by mouth daily 60 tablet 02/06/2023 08/15/2023 documented in this encounter Discharge Disposition Disposition Code Departure Means Destination Comment s Discharge to home or self care documented in this encounter Progress Notes * Oneida Read MD PhD - 02/06/2023 5:49 AM CDT Neurosurgery Daily Progress Note 02/06/2023 Hospital Course 02/05 Bilateral MMA embolization. Post angio check ok. Subjective Mild headache Objective Physical Exam: OE spont, R, FC Ox3 PERRL, EOMI, F=, TML BUE 10/05 BLE 10/05 No drift R groin access site ok Vitals: 24hr min/max vitals: Temp Min: 36 ??C (96.8 ??F) Max: 37 ??C (98.6 ??F) Pulse Min: 59 Max: 86 Resp Min: 11 Max: 24 SpO2 Min: 91 % Max: 100 % MAP (mmHg) Min: 64 Max: 101 Intake and output: I/O last 2 completed shifts: In: - Out: 445 [Urine:440; Blood:5] Medications: Scheduled Scheduled Medications Medication Dose Route Frequency famotidine (PEPCID) tablet 40 mg 40 mg oral Nightly finasteride (PROSCAR) tablet 5 mg 5 mg oral Daily - 0600 multivit rdaxnmxw-qauh-TZ-calcium (THERA-M) tablet 1 tablet 1 tablet oral Daily pantoprazole DR (PROTONIX) extended release tablet 40 mg 40 mg oral Daily sodium chloride 0.9% flush 0.5-20 mL 0.5-20 mL intra-catheter Q8H JUDE As needed PRN Medications Medication Dose Route Frequency Last Admin Carrier Fluids for Secondary Infusion - 0.9% Sodium Chloride 30 mL intravenous PRN Carrier Fluids for Secondary Infusion - 0.9% Sodium Chloride 30 mL intravenous PRN diphenhydrAMINE (BENADRYL) 50 mg/mL injection 12.5 mg 12.5 mg intravenous Q15 Min PRN HYDROmorphone (DILAUDID) injection 0.5 mg 0.5 mg intravenous Q10 Min PRN HYDROmorphone (DILAUDID) injection 1 mg 1 mg intravenous Q10 Min PRN iodixanoL (VISIPAQUE) 320 mg iodine/mL injection PRN 120 mL at 02/05/23 1524 naloxone (NARCAN) 0.4 mg/mL injection 0.04-0.4 mg 0.04-0.4 mg intravenous Once PRN oxyCODONE (ROXICODONE) tablet 5 mg 5 mg oral Q4H PRN 5 mg at 02/05/23 1628 sodium chloride 0.9% flush 0.5-20 mL 0.5-20 mL intra-catheter PRN sodium chloride 0.9% flush 0.5-20 mL 0.5-20 mL intra-catheter PRN Labs: Lab Results Component Value Date SODIUM 143 02/01/2023 SODIUM 144 08/13/2022 SODIUM 141 07/03/2022 Lab Results Component Value Date GLUCOSE 94 02/01/2023 CALCIUM 9.3 02/01/2023 POTASSIUM 4.0 02/01/2023 CO2 28 02/01/2023 CHLORIDE 106 02/01/2023 BUNSER 17 02/01/2023 CREATININE 1.11 02/01/2023 Lab Results Component Value Date WBC 5.7 02/01/2023 WBC 4.8 08/13/2022 WBC 5.9 07/03/2022 HGB 15.6 02/01/2023 HGB 14.7 08/13/2022 HGB 14.1 07/03/2022 HCT 45.4 02/01/2023 HCT 45.2 08/13/2022 HCT 41.3 07/03/2022 LABPLAT 147 (L) 02/01/2023 LABPLAT 156 08/13/2022 LABPLAT 127 (L) 07/03/2022 Lab Results Component Value Date INR 1.01 02/01/2023 INR 1.1 07/01/2022 INR 1.1 06/17/2020 PT 11.5 02/01/2023 PT 11.6 07/01/2022 PT 12.4 06/17/2020 APTT 32 02/01/2023 APTT 30 07/01/2022 APTT 31 06/17/2020 No components found for: TROPONIN PT/OT assessment: Assessment/Plan Hospital Day: 2 Samuel Sanchez is a 77 y.o. year old male who presented for elective embolization of bilateral MMA who is at neurologic baseline post-procedure. Plan Dispo home likely today DVT prophylaxis: subcutaneous heparin Responsible team (call resident in bold with questions) Jacek Wasserman (Chief) Note created by Oneida Read MD PhD on 02/06/2023 at 5:49 AM. Cosigned by Aston Grubbs MD at 02/06/2023 12:43 PM CDT Associated attestation - Aston Grubbs MD - 02/06/2023 12:43 PM CDT I have seen and examined the patient on 02/06/23. I agree with the findings and plan of care as documented in the resident's/fellow's note. Neuro stable after MMA embo. Has mild headache which is often seen after MMA embo Plan to d/c home today and 4 week follow up with head CT. * Milan Wright MD - 02/05/2023 8:58 PM CDT Neurosurgery Post Op Check Note Surgeon: Dr. Grubbs Procedure: bilateral MMA embolization Exam: Awake, R, FC Ox3 PERRL, EOMI, FS, TM Conversant, intact speech. Intact visual kitchen BUE 5/5 BLE 5/5 No drift R groin access site flat, nontender [place] [address] SDU Diet: Advance as tolerated Antibiotics: NA Activity Restrictions: HOB at 30 degrees Imaging required: None If there are any issues or questions, please page Milan Wright MD at [phone]. If it is after 6pm, please use the Neurosurgery Call pager at [phone] Milan Wright MD documented in this encounter Miscellaneous Notes * Plan of Care - Noemi Maher RN - 02/05/2023 6:59 PM CDT Problem: Health Behavior: Goal: Understanding of discharge needs will improve Outcome: Progressing Problem: Lack of Knowledge: Goal: Ability to state ways to decrease the risk of falls will improve Outcome: Progressing Problem: Safety: Goal: Will remain free from falls Outcome: Progressing Goal: Will remain free from injury from falls Outcome: Progressing * Post-Procedure Note - Kirill Fox MD - 02/05/2023 1:45 PM CDT Endovascular Neurosurgery/Interventional Neuroradiology Brief Post Procedure Note Attending: Aston Grubbs MD Chief Substation Operator: Kirill Fox MD Sedation/Anesthesia: Anesthesia Medications: Medications were administered by the Department of Anesthesiology and are documented in the MAR. Contrast: [id number] Pre-Op Diagnosis: subdural hematoma Post-Op Diagnosis: subdural hematoma Procedure Performed: DSA - LCCA, LMMA, RCCA, RMMA Particle and coil embolization of right MMA, particle embolization of L MMA USG guided vascular access Closure device Access Site: Right femoral Procedure Findings: Initial angiography demonstrated right ophthalmic artery arising from right internal carotid arteryand left ophthalmic artery arising from left internal carotid artery. Bilateral MMA has normal anatomy with frontal branch of right MMA supplying collaterals to right ophthalmic artery. Successful particle and coil embolization of right MMA, particle embolization of left MMA Final angiography reveals satisfactory occlusion of bilateral MMA with no evidence of thromboembolic complication. Access Site Closure: Angioseal Complications: None Estimated Blood Loss: <20 ml Specimens: None Condition: Stable Full report to follow. * Pre-Procedure Note - Kirill Fox MD - 02/05/2023 1:45 PM CDT PRE-SEDATION ASSESSMENT/H&P Patient is a 77 y.o. male with chief complaint of headaches. 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 male h/o headaches after a fall with headstrike who was found to CT tohave a L sided subdural hematoma initially and to develop new right sided subdural hematoma on interval CT scans. The patient did not have surgery but was recommended for a bilateral middle meningealartery embolization. The patient denies any weakness in an arm or leg. He denies any visual deficits. No sensation deficits. 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 Flank pain 04/04/2022 Gastroesophageal reflux disease without esophagitis 04/04/2022 Lumbar facet arthropathy 12/05/2021 Chronic bilateral low back pain without sciatica 12/05/2021 Chronic migraine without aura without status migrainosus, not intractable 08/03/2021 Dysphonia 10/06/2019 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 Dyspepsia 07/01/2018 DDD (degenerative disc disease), lumbar 09/10/2017 Chronic cough 01/09/2017 Chronic pansinusitis 01/09/2017 [facility] use of drug 11/21/2016 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 Calculus of kidney 07/23/2011 Seropositive rheumatoid arthritis of multiple sites ([facility]) ([facility]) 07/03/2011 Shortness of breath 12/26/2010 Headache 12/22/2009 Malignant neoplasm of prostate ([facility]) 1998 History of Sedation/Anesthesia Complications: No History of Difficult Airway: No PSH Past Surgical History: Procedure Laterality Date BICEPS TENODESIS Left COLONOSCOPY 03/14/2020 CYSTOSCOPY 2020 EAR SURGERY Left repair perforated eardrum KIDNEY STONE SURGERY LARYNGOSCOPY Right 01/09/2019 Direct laryngoscopy with biopsy LARYNGOSCOPY Right 02/16/2019 Suspension microlaryngoscopy with KTP laser photoablation Right vocal fold lesion LITHOTRIPSY 5 or 6 times - [id number] ORCHIECTOMY Right OTHER SURGICAL HISTORY 04/18/2020 Suspension microlaryngoscopy with KTP laser treatment-multiple PROSTATE SURGERY Pinched Prostate: surgically repaired ROTATOR CUFF REPAIR Right and removal of bone spurs SHOULDER SURGERY Right bone spurs VASECTOMY Social History: Social History Tobacco Use Smoking status: Former Packs/day: 1.50 Years: 30.00 Additional pack years: 0.00 Total pack years: 45.00 Types: Cigarettes Start date: 1958 Quit date: 1995 Years since quittin.6 Smokeless tobacco: Never Substance and Sexual Activity Drug use: Yes Types: Medical marijuana Sexual activity: Defer Alcohol Use: Not At Risk (02/05/2023) AUDIT-C Frequency of Alcohol Consumption: 2-4 times a month Average Number of Drinks: 1 or 2 Frequency of Binge Drinking: Never Family History: Family History Adopted: Yes Problem Relation Age of Onset Other Other adopted Other Other adopted Anesthesia problems Neg Hx Current Meds: Current Outpatient Medications: diphenhydrAMINE 25 mg capsule, Take 1 tablet/capsule (25 mg total) by mouth every 6 (six) hours as needed for itching, Disp: , Rfl: famotidine (PEPCID) 40 mg tablet, Take 1 tablet (40 mg total) by mouth nightly, Disp: , Rfl: finasteride (PROSCAR) 5 mg tablet, Take 1 tablet (5 mg total) by mouth early childhood teacher assistant before breakfast, Disp: , Rfl: omeprazole (PriLOSEC) 40 mg capsule, Take 1 capsule (40 mg total) by mouth every morning, Disp: , Rfl: UNABLE TO FIND, Take 1 each by mouth nightly as needed THC gummie-25mg, Disp: , Rfl: vit A/vit C/vit E/zinc/copper (PRESERVISION AREDS ORAL), Take 1 capsule by mouth 2 (two) times a day, Disp: , Rfl: hydrOXYchloroQUINE (PLAQUENIL) 200 mg tablet, Take 2 tablets (400 mg total) by mouth daily Hasn't started taking yet. Awaiting Rheum. appointment, Disp: , Rfl: multivitamin capsule, Take 1 capsule by mouth every morning, Disp: , Rfl: Current Facility-Administered Medications: Carrier Fluids for Secondary Infusion - 0.9% Sodium Chloride, 30 mL, intravenous, PRN, Lisa Martin, JOSEPH Carrier Fluids for Secondary Infusion - 0.9% Sodium Chloride, 30 mL, intravenous, PRN, Kecia Gant, ZOILA sodium chloride 0.9% flush 0.5-20 mL, 0.5-20 mL, intra-catheter, PRN, Lisa Martin, JOSEPH sodium chloride 0.9% flush 0.5-20 mL, 0.5-20 mL, intra-catheter, Q8H JUDE, Kecia Gant PA sodium chloride 0.9% flush 0.5-20 mL, 0.5-20 mL, intra-catheter, PRN, Kecia Gant PA sodium chloride 0.9% infusion, 30 mL/hr, intravenous, Continuous, Lisa Martin, DUMPSTER DRIVER, Last Rate: 30 mL/hr at 02/05/23 1137, 30 mL/hr at 02/05/23 1137 sodium chloride 0.9% infusion, 30 mL/hr, intravenous, Continuous, Kecia Gant PA Home Meds: HOME MEDICATIONS : diphenhydrAMINE 25 mg capsule famotidine (PEPCID) 40 mg tablet finasteride (PROSCAR) 5 mg tablet omeprazole (PriLOSEC) 40 mg capsule UNABLE TO FIND vit A/vit C/vit E/zinc/copper (PRESERVISION AREDS ORAL) hydrOXYchloroQUINE (PLAQUENIL) 200 mg tablet multivitamin capsule Allergies: Allergies Allergen Reactions Perfume Swelling, Cough and Shortness of breath Mold Unknown Augmentin [Amoxicillin-Pot Clavulanate] Dizziness Cat Dander Eye irritation Hydrocodone Itching Vicodin [Hydrocodone-Acetaminophen] Itching REVIEW OF SYSTEMS: Review of systems per HPI and otherwise all other systems are negative Vitals: Vitals: 02/05/23 1120 BP: 122/87 Pulse: 63 Resp: 24 Temp: 36 ??C (96.8 ??F) TempSrc: Temporal SpO2: 95% Pertinent Labs: Recent Labs Lab Units 02/01/23 0845 WBC K/cumm 5.7 HEMOGLOBIN g/dL 15.6 HEMATOCRIT % 45.4 PLATELETS K/cumm 147* Recent Labs Lab Units 02/01/23 0845 SODIUM mmol/L 143 POTASSIUM PLASMA mmol/L 4.0 CHLORIDE mmol/L 106 CO2 mmol/L 28 BUN SERUM mg/dL 17 CREATININE mg/dL 1.11 CALCIUM mg/dL 9.3 Recent Labs Lab Units 02/01/23 0845 PROTIME (PT) sec 11.5 INR 1.01 APTT sec [address] of the head without contrast performed on 01/17/23 shows the following: L>R subdural hematoma PERTINENT PHYSICAL EXAM: Neurologic: A&Ox3, VFF, EOMI, face=, moves all 4 extremities strongly to command, sensation intact to light touch throughout, R radial pulse 2+ at distal volar forearm and anatomical snuffbox Assessment: Samuel Sanchez [phone] 77 y.o. male with bilateral subdural hematoma now presents for bilateral middle meningeal artery embolization. -to neuroIR for diagnostic cerebral angiogram and bilateral middle meningeal artery embolization Airway Exam: normal ASA Classification:Class 3: Patient with severe systemic disease Sedation Plan: Anesthesia Adjunctive Procedures: NONE PO status: Last PO: NPO since midnight Benefits, risks and alternatives of procedure and planned sedation have been discussed with the patient and/or their shipping services sales representative. All questions answered and they agree to proceed. documented in this encounter Plan of Treatment [...] Procedure Name Priority Date/Time Associated Diagnosis Comments IR PERMANENT OCCLUSION OR EMBOLIZATION PERCUTANEOUS BREAST WORKER Schedule Routine, Read Routine (OP Routine) 02/05/2023 3:25 PM CDT Subdural hematoma (HCC) documented in this encounter Results * IR Permanent Occlusion or Embolization BREAST WORKER (02/05/2023 3:25 PM CDT) Anatomical Region Laterality Modality Radio Fluoroscop y 02/06/2023 3:37 PM CDT Impressions 02/08/2023 10:43 AM CDT 1. Initial angiography demonstrated ??right ophthalmic artery arising from right internal artery and left ophthalmic artery arising from left internal artery. There was separation of parenchymal phase vessels and dural vessels consistent with bilateral subdural hematoma. ??The frontal branch of the right middle meningeal artery supplies collaterals to the right ophthalmic artery. 2. Successful embolization of right middle meningeal artery with coil and PVA 150-250 microns and left middle meningeal artery with PVA 150-250 microns. 3. Final angiography demonstrated satisfactory occlusion of bilateral middle meningeal arteries with no evidence of thromboembolic complications. PLAN: 1. Admit to floor for observation. 2. Lie flat and right leg straight for 2 hours. These results were discussed with the neurosurgery team upon conclusion of the case. Dictated by: Kirill Fox MD The radiology attending physician has personally reviewed this study, and had reviewed and/or edited this written report and agrees with it. Electronically signed by: Aston Grubbs M.D. Narrative 02/08/2023 10:43 AM CDT ENDOVASCULAR EMBOLIZATION OF RIGHT MIDDLE MENINGEAL ARTERY AND LEFT MIDDLE MENINGEAL ARTERY CLINICAL INDICATION: 77 years-old Male with history of headaches after a fall with a head strike who was found on CT to have a left-sided subdural hematoma initially. ??On subsequent head CTs he was found to develop a right-sided subdural hematoma. ??The patient did not have surgery but was recommended for bilateral middle meningeal artery embolization. PROCEDURE: 1. ??Transarterial embolization, central nervous system: particle and coil embolization of right middle meningeal artery and particle embolization of left middle meningeal artery 2. ??Cerebral angiography: Right common carotid artery, right middle meningeal artery, left common carotid artery, left internal maxillary artery, and left middle meningeal artery injections 3. ??Ultrasound-guided vascular access 4. ??Hemostatic device placement DURATION OF PROCEDURE: Approximately 120 minutes. ATTENDING PHYSICIAN: Aston Grubbs MD was present for the entire procedure. ASSISTING PHYSICIANS: MD Leonard Patton MD ANESTHESIA: General anesthesia DEVICES: 5 Fr Merit Prelude sheath 6 Fr Merit Prelude sheath 3mm J wire Rist 071 Radial Access Guide Catheter 5 Fr Vtk Catheter Penumbra 5 Fr Rosen Select Catheter [place] 1018 Microcatheter Synchro 2 014 microwire 5 Fr MPD Envoy catheter Prowler Plus Microcatheter Synchro 2 014 microwire Contour PVA 150-250 micron particles Tornado 3-2 coil 6 Fr AngioSeal Closure device ?? MEDICATIONS: Medications were administered by the Department of anesthesiology and are included in the MAR. CONTRAST: Visipaque-320 120 mL ESTIMATED BLOOD LOSS: <50 mL COMPLICATIONS: None TECHNIQUE: Prior to the procedure, the technical aspects of the procedure, as well as benefits, potential risks and alternate options, were explained to the patient. Specifically, the risks of cerebral infarction, hemorrhage, weakness, paralysis, sensory changes, vision decline/blindness, cranial nerve palsy, facial pain, anaphylaxis, renal failure, access site hematoma, arterial dissection, arterial pseudoaneurysm, arteriovenous fistula, coma or even were discussed with the patient in person. Informed consent was obtained. General anesthesia was provided by the Department of Anesthesiology for the duration of the case. The patient was prepared and draped in the standard sterile fashion. The femoral head was localized by fluoroscopy. The right femoral artery punctured using a single-wall needle needle under real-time ultrasound guidance. Ultrasound images demonstrated a patent vessel and were stored to PACS. A 5 Indian sheath was inserted over a 3 mm J wire and connected to a regulated pressurized infusion of heparinized saline. A 5 Fr MPD Envoy with Terumo Glidewire ??was used to attempt selection of the right common carotid artery and the left common carotid artery but could not be obtained. ??The 5-Indian MPD Envoy was removed. ??The 5 Fr short sheath was then exchanged for a 6 Fr short sheath over the 3 mm J wire and connected to a regulated pressurized infusion of heparinized saline. A coaxial system comprising of a Rist 071 guide catheter over a 5 Fr Vtk catheter with Terumo Glidewire was advanced into the aortic arch under fluoroscopic guidance and used to select the right common carotid artery. Contrast was injected for imaging in multiple projections. Images of the cervical and cranial vessels were obtained for interpretation. Initial angiography demonstrated slight separation of the parenchymal vessels and the dural vessels of the right cerebral convexity consistent with a right-sided subdural hematoma. ??The right ophthalmic artery arises from the right ??internal carotid artery in standard anatomical configuration. A coaxial assembly of [place] 1018 microcatheter and Synchro Select 014 microwire was prepared in standard fashion through a series of rotating hemostatic valves connected to a pressurized infusion of heparinized saline. ??This assembly was gently advanced through the guide catheter into the right external carotid artery and used to select the right middle meningeal artery under fluoroscopic roadmap guidance. ??The microcatheter and microwire was then advanced into the right middle meningeal artery beyond the foramen spinosum. The long sheath was advanced into the proximal right external carotid artery. Superselective microcatheter angiography was performed in the right middle meningeal artery, and this showed that there was a collateral to the ophthalmic artery from the frontal branch of the right middle meningeal artery. There was no choroidal blush visualized. Under roadmap guidance, the microcatheter was advanced into the frontal branch of the right middle meningeal artery proximal to the origin of the collateral to the ophthalmic artery. A [employer] Tornado 3/2-mm coil was prepared and loaded within the [place] 1018 microcatheter and deployed using saline flush technique with a 3 mL flush of saline under roadmap guidance. The [place] 1018 microcatheter was then withdrawn proximal to the division of the right MMA into the frontal and parietal branches. Cook PVA particles 150-250 microns were prepared on an adjacent table and maintained in 30ml isobaric suspension of 70:30 contrast: saline ratio. These were injected into the middle meningeal artery using a pulse-spray technique under blank roadmap guidance over several minutes till stasis. The microcatheter was flushed with saline under blank roadmap guidance. Superselective microcatheter angiography of the right middle meningeal artery demonstrated expected contrast stasis, consistent with satisfactory embolization. The microcatheter was then removed. The guide catheter was then withdrawn into the right common carotid artery and contrast injection was performed and AP and lateral projection images of the head was obtained. ??This did not demonstrate any distal thromboembolic complications. There was normal filling of the ipsilateral ophthalmic artery and choroidal blush was unchanged. The guide catheter was then withdrawn into the aortic arch. A 5 Fr Penumbra Rosen Select catheter with Terumo Glidewire was advanced into the guide catheter and into the aortic arch under fluoroscopic guidance and the Rosen catheter was formed over the aortic arch. This assembly was used to select the left common carotid artery. There was some difficulty in selecting the left common carotid artery secondary to stenosis at the left common carotid artery origin and plaque. Contrast was injected for imaging in multiple projections. Images of the cervical and cranial vessels were obtained for interpretation. Initial angiography demonstrated separation of the parenchymal vessels and the dural vessels of the left cerebral convexity consistent with a left-sided subdural hematoma. ??The left ophthalmic artery arises from the left internal carotid artery in standard anatomical configuration. A coaxial assembly of [place] 1018 microcatheter and Synchro Select 014 microwire was prepared in standard fashion through a series of rotating hemostatic valves connected to a pressurized infusion of heparinized saline. ??This assembly was gently advanced through the guide catheter into the left external carotid artery and used to select the left internal maxillary artery under fluoroscopic roadmap guidance. A microcatheter run of the left internal maxillary artery was performed and a roadmap was obtained. ??The microcatheter and microwire was then advanced into the left middle meningeal artery beyond the foramen spinosum. Superselective microcatheter angiography was performed in the left middle meningeal artery, and confirmed that there were no abnormal collaterals to the ophthalmic artery or the intracranial circulation. There was no choroidal blush visualized. The previously prepared suspension of [employer] PVA 150-250 micron particles were injected into the left middle meningeal artery using a pulse-spray technique under blank roadmap guidance over several minutes till stasis. The microcatheter was flushed with saline under blank roadmap guidance. Superselective microcatheter angiography of the left middle meningeal artery demonstrated expected contrast stasis, consistent with satisfactory embolization. The microcatheter was then removed. The guide catheter was then withdrawn into the left common carotid artery and contrast injection was performed and AP and lateral projection images of the head was obtained. ??This did not demonstrate any distal thromboembolic complications. There was normal filling of the ipsilateral ophthalmic artery and choroidal blush was unchanged. The catheter was then withdrawn to near the arterial access site, where angiography was performed. The catheter was then removed. Hemostasis was achieved after sheath removal by placement of an AngioSeal closure device. There were no immediate complications. The patient was transported to the post anesthesia care unit in unchanged neurological condition. FINDINGS: RIGHT COMMON CAROTID ARTERY, CERVICAL: The bifurcation is smooth, without irregularity, calcification, or stenosis with respect to the distal right ICA. There is normal opacification of right cervical ECA branches. RIGHT COMMON CAROTID ARTERY, CEREBRAL (BASELINE): There is no evidence of aneurysm, focal stenosis, or early draining vein. There is crossflow across the anterior communicating artery from right to left . There is a right posterior communicating artery. The right opthalmic artery arises from the right internal carotid artery in standard configuration. RIGHT MIDDLE MENINGEAL ARTERY, CEREBRAL (BASELINE): There are collaterals to the right ophthalmic artery from the frontal branch of the right middle meningeal artery. ?? RIGHT MIDDLE MENINGEAL ARTERY, CEREBRAL (POST): There is coil extending from the frontal branch to the bifurcation. Contrast stasis is seen in the proximal right middle meningeal artery consistent with satisfactory embolization. RIGHT COMMON CAROTID ARTERY, CEREBRAL (POST): There is persistent filing of the right opthalmic artery and choroidal blush. There are no abrupt cut-offs to suggest thromboembolic occlusions. LEFT COMMON CAROTID ARTERY, CERVICAL: The bifurcation is smooth, without irregularity, calcification, or stenosis with respect to the distal left ICA. There is normal opacification of left cervical ECA branches. LEFT COMMON CAROTID ARTERY, CEREBRAL (BASELINE): There is no evidence of aneurysm, focal stenosis, or early draining vein. There is no cross flow across the anterior commuting artery from left to right . There is a small posterior communicating artery visualized. The left opthalmic artery arises from the left internal carotid artery in standard configuration. LEFT INTERNAL MAXILLARY ARTERY: There is no intracranial early venous drainage. Standard origin of the left middle meningeal artery is seen. LEFT MIDDLE MENINGEAL ARTERY, CEREBRAL (BASELINE): There are no intracranial collaterals visualized. There is no collateral to the ophthalmic artery or choroidal blush that is visualized. LEFT MIDDLE MENINGEAL ARTERY, CEREBRAL (POST): There is contrast stasis in the left middle meningeal artery consistent with satisfactory embolization. LEFT COMMON CAROTID ARTERY, CEREBRAL (POST): There is persistent filing of the left opthalmic artery and choroidal blush. There are no abrupt cut-offs to suggest thromboembolic occlusions. Procedure Note Aston Grubbs MD - 02/08/2023 ENDOVASCULAR EMBOLIZATION OF RIGHT MIDDLE MENINGEAL ARTERY AND LEFT MIDDLE MENINGEAL ARTERY CLINICAL INDICATION: 77 years-old Male with history of headaches after a fall with a head strike who was found on CT to have a left-sided subdural hematoma initially. On subsequent head CTs he was found to develop a right-sided subdural hematoma. The patient did not have surgery but was recommended for bilateral middle meningeal artery embolization. PROCEDURE: 1. Transarterial embolization, central nervous system: particle and coil embolization of right middle meningeal artery and particle embolization of left middle meningeal artery 2. Cerebral angiography: Right common carotid artery, right middle meningeal artery, left common carotid artery, left internal maxillary artery, and left middle meningeal artery injections 3. Ultrasound-guided vascular access 4. Hemostatic device placement DURATION OF PROCEDURE: Approximately 120 minutes. ATTENDING PHYSICIAN: Aston Grubbs MD was present for the entire procedure. ASSISTING PHYSICIANS: MD Leonard Patton MD ANESTHESIA: General anesthesia DEVICES: 5 Fr Merit Prelude sheath 6 Fr Merit Prelude sheath 3mm J wire Rist 071 Radial Access Guide Catheter 5 Fr Vtk Catheter Penumbra 5 Fr Rosen Select Catheter [place] 1018 Microcatheter Synchro 2 014 microwire 5 Fr MPD Envoy catheter Prowler Plus Microcatheter Synchro 2 014 microwire Contour PVA 150-250 micron particles [place]ornado 3-2 coil 6 Fr AngioSeal Closure device MEDICATIONS: Medications were administered by the Department of anesthesiology and are included in the MAR. CONTRAST: Visipaque-320 120 mL ESTIMATED BLOOD LOSS: <50 mL COMPLICATIONS: None TECHNIQUE: Prior to the procedure, the technical aspects of the procedure, as well as benefits, potential risks and alternate options, were explained to the patient. Specifically, the risks of cerebral infarction, hemorrhage, weakness, paralysis, sensory changes, vision decline/blindness, cranial nerve palsy, facial pain, anaphylaxis, renal failure, access site hematoma, arterial dissection, arterial pseudoaneurysm, arteriovenous fistula, coma or even were discussed with the patient in person. Informed consent was obtained. General anesthesia was provided by the Department of Anesthesiology for the duration of the case. The patient was prepared and draped in the standard sterile fashion. The femoral head was localized by fluoroscopy. The right femoral artery punctured using a single-wall needle needle under real-time ultrasound guidance. Ultrasound images demonstrated a patent vessel and were stored to PACS. A 5 Indian sheath was inserted over a 3 mm J wire and connected to a regulated pressurized infusion of heparinized saline. A 5 Fr MPD Envoy with Terumo Glidewire was used to attempt selection of the right common carotid artery and the left common carotid artery but could not be obtained. The 5-Indian MPD Envoy was removed. The 5 Fr short sheath was then exchanged for a 6 Fr short sheath over the 3 mm J wire and connected to a regulated pressurized infusion of heparinized saline. A coaxial system comprising of a Rist 071 guide catheter over a 5 Fr Vtk catheter with Terumo Glidewire was advanced into the aortic arch under fluoroscopic guidance and used to select the right common carotid artery. Contrast was injected for imaging in multiple projections. Images of the cervical and cranial vessels were obtained for interpretation. Initial angiography demonstrated slight separation of the parenchymal vessels and the dural vessels of the right cerebral convexity consistent with a right-sided subdural hematoma. The right ophthalmic artery arises from the right internal carotid artery in standard anatomical configuration. A coaxial assembly of [place] 1018 microcatheter and Synchro Select 014 microwire was prepared in standard fashion through a series of rotating hemostatic valves connected to a pressurized infusion of heparinized saline. This assembly was gently advanced through the guide catheter into the right external carotid artery and used to select the right middle meningeal artery under fluoroscopic roadmap guidance. The microcatheter and microwire was then advanced into the right middle meningeal artery beyond the foramen spinosum. The long sheath was advanced into the proximal right external carotid artery. Superselective microcatheter angiography was performed in the right middle meningeal artery, and this showed that there was a collateral to the ophthalmic artery from the frontal branch of the right middle meningeal artery. There was no choroidal blush visualized. Under roadmap guidance, the microcatheter was advanced into the frontal branch of the right middle meningeal artery proximal to the origin of the collateral to the ophthalmic artery. A [place] Tornado 3/2-mm coil was prepared and loaded within the [place] 1018 microcatheter and deployed using saline flush technique with a 3 mL flush of saline under roadmap guidance. The [place] 1018 microcatheter was then withdrawn proximal to the division of the right MMA into the frontal and parietal branches. Cook PVA particles 150-250 microns were prepared on an adjacent table and maintained in 30ml isobaric suspension of 70:30 contrast: saline ratio. These were injected into the middle meningeal artery using a pulse-spray technique under blank roadmap guidance over several minutes till stasis. The microcatheter was flushed with saline under blank roadmap guidance. Superselective microcatheter angiography of the right middle meningeal artery demonstrated expected contrast stasis, consistent with satisfactory embolization. The microcatheter was then removed. The guide catheter was then withdrawn into the right common carotid artery and contrast injection was performed and AP and lateral projection images of the head was obtained. This did not demonstrate any distal thromboembolic complications. There was normal filling of the ipsilateral ophthalmic artery and choroidal blush was unchanged. The guide catheter was then withdrawn into the aortic arch. A 5 Fr Penumbra Rosen Select catheter with Terumo Glidewire was advanced into the guide catheter and into the aortic arch under fluoroscopic guidance and the Rosen catheter was formed over the aortic arch. This assembly was used to select the left common carotid artery. There was some difficulty in selecting the left common carotid artery secondary to stenosis at the left common carotid artery origin and plaque. Contrast was injected for imaging in multiple projections. Images of the cervical and cranial vessels were obtained for interpretation. Initial angiography demonstrated separation of the parenchymal vessels and the dural vessels of the left cerebral convexity consistent with a left-sided subdural hematoma. The left ophthalmic artery arises from the left internal carotid artery in standard anatomical configuration. A coaxial assembly of [place] 1018 microcatheter and Synchro Select 014 microwire was prepared in standard fashion through a series of rotating hemostatic valves connected to a pressurized infusion of heparinized saline. This assembly was gently advanced through the guide catheter into the left external carotid artery and used to select the left internal maxillary artery under fluoroscopic roadmap guidance. A microcatheter run of the left internal maxillary artery was performed and a roadmap was obtained. The microcatheter and microwire was then advanced into the left middle meningeal artery beyond the foramen spinosum. Superselective microcatheter angiography was performed in the left middle meningeal artery, and confirmed that there were no abnormal collaterals to the ophthalmic artery or the intracranial circulation. There was no choroidal blush visualized. The previously prepared suspension of Cook PVA 150-250 micron particles were injected into the left middle meningeal artery using a pulse-spray technique under blank roadmap guidance over several minutes till stasis. The microcatheter was flushed with saline under blank roadmap guidance. Superselective microcatheter angiography of the left middle meningeal artery demonstrated expected contrast stasis, consistent with satisfactory embolization. The microcatheter was then removed. The guide catheter was then withdrawn into the left common carotid artery and contrast injection was performed and AP and lateral projection images of the head was obtained. This did not demonstrate any distal thromboembolic complications. There was normal filling of the ipsilateral ophthalmic artery and choroidal blush was unchanged. The catheter was then withdrawn to near the arterial access site, where angiography was performed. The catheter was then removed. Hemostasis was achieved after sheath removal by placement of an AngioSeal closure device. There were no immediate complications. The patient was transported to the post anesthesia care unit in unchanged neurological condition. FINDINGS: RIGHT COMMON CAROTID ARTERY, CERVICAL: The bifurcation is smooth, without irregularity, calcification, or stenosis with respect to the distal right ICA. There is normal opacification of right cervical ECA branches. RIGHT COMMON CAROTID ARTERY, CEREBRAL (BASELINE): There is no evidence of aneurysm, focal stenosis, or early draining vein. There is crossflow across the anterior communicating artery from right to left . There is a right posterior communicating artery. The right opthalmic artery arises from the right internal carotid artery in standard configuration. RIGHT MIDDLE MENINGEAL ARTERY, CEREBRAL (BASELINE): There are collaterals to the right ophthalmic artery from the frontal branch of the right middle meningeal artery. RIGHT MIDDLE MENINGEAL ARTERY, CEREBRAL (POST): There is coil extending from the frontal branch to the bifurcation. Contrast stasis is seen in the proximal right middle meningeal artery consistent with satisfactory embolization. RIGHT COMMON CAROTID ARTERY, CEREBRAL (POST): There is persistent filing of the right opthalmic artery and choroidal blush. There are no abrupt cut-offs to suggest thromboembolic occlusions. LEFT COMMON CAROTID ARTERY, CERVICAL: The bifurcation is smooth, without irregularity, calcification, or stenosis with respect to the distal left ICA. There is normal opacification of left cervical ECA branches. LEFT COMMON CAROTID ARTERY, CEREBRAL (BASELINE): There is no evidence of aneurysm, focal stenosis, or early draining vein. There is no cross flow across the anterior commuting artery from left to right . There is a small posterior communicating artery visualized. The left opthalmic artery arises from the left internal carotid artery in standard configuration. LEFT INTERNAL MAXILLARY ARTERY: There is no intracranial early venous drainage. Standard origin of the left middle meningeal artery is seen. LEFT MIDDLE MENINGEAL ARTERY, CEREBRAL (BASELINE): There are no intracranial collaterals visualized. There is no collateral to the ophthalmic artery or choroidal blush that is visualized. LEFT MIDDLE MENINGEAL ARTERY, CEREBRAL (POST): There is contrast stasis in the left middle meningeal artery consistent with satisfactory embolization. LEFT COMMON CAROTID ARTERY, CEREBRAL (POST): There is persistent filing of the left opthalmic artery and choroidal blush. There are no abrupt cut-offs to suggest thromboembolic occlusions. IMPRESSION: 1. Initial angiography demonstrated right ophthalmic artery arising from right internal artery and left ophthalmic artery arising from left internal artery. There was separation of parenchymal phase vessels and dural vessels consistent with bilateral subdural hematoma. The frontal branch of the right middle meningeal artery supplies collaterals to the right ophthalmic artery. 2. Successful embolization of right middle meningeal artery with coil and PVA 150-250 microns and left middle meningeal artery with PVA 150-250 microns. 3. Final angiography demonstrated satisfactory occlusion of bilateral middle meningeal arteries with no evidence of thromboembolic complications. PLAN: 1. Admit to floor for observation. 2. Lie flat and right leg straight for 2 hours. These results were discussed with the neurosurgery team upon conclusion of the case. Dictated by: Kirill Fox MD The radiology attending physician has personally reviewed this study, and had reviewed and/or edited this written report and agrees with it. Electronically signed by: Aston Grubbs M.D. Aston Grubbs MD IMG IR PROCEDURES Mariaa l Result documented in this encounter Visit Diagnoses Diagnosis Subdural hematoma (HCC)- Primary Subdural hemorrhage documented in this encounter Admitting Diagnoses Diagnosis Subdural hematoma (HCC) Subdural hemorrhage documented in this encounter Administered Medications Inactive Administered Medications - up to 3 most recent administrations Medication Order MAR Action Action Date Dose Rate Site Carrier Fluids for Secondary Infusion - 0.9% Sodium Chloride 30 mL, intravenous, As needed, For priming tubing and/or flushing, Starting on Sat02/05/23 at 1113, Pre-Op, 0-250 ml/hr to flush line after IV infusions when no maintenance IV ordered. Infuse 30mL at the same rate as the secondary infusion. Run as primary IV, not intended for KVO. Carrier Fluids for Secondary Infusion - 0.9% Sodium Chloride 30 mL, intravenous, As needed, For priming tubing and/or flushing, Starting on Sat02/05/23 at 1114, Pre-Procedure (IR), 0-250 ml/hr to flush line after IV infusions when no maintenance IV ordered. Infuse 30mL at the same rate as the secondary infusion. Run as primary IV, not intended for KVO. famotidine (PEPCID) tablet 40 mg 40 mg, oral, Nightly, First dose on Sat02/05/23 at 2300 Given 02/05/2023 10:40 PM CDT 40 mg finasteride (PROSCAR) tablet 5 mg 5 mg, oral, Daily (early AM), First dose on Sat02/06/23 at 0600, Do not crush, break, or open., Indications: benign prostatic hyperplasia with lower urinary tract sxIndications:benign prostatic hyperplasia with lower urinary tract sx Given 02/06/2023 5:49 AM CDT 5 mg iodixanoL (VISIPAQUE) 320 mg iodine/mL injection As needed, Starting on Sat02/05/23 at 1524, Intra-Op Given 02/05/2023 3:24 PM CDT 120 mL multivit ndjpmnjw-bzat-CQ-calcium (THERA-M) tablet 1 tablet 1 tablet, oral, Daily, First dose on Sat02/06/23 at 0900, Indications: Vitamin Deficiency PreventionIndications:Vitamin Deficiency Prevention Given 02/06/2023 8:40 AM CDT 1 tablet oxyCODONE (ROXICODONE) tablet 5 mg 5 mg, oral, Every 4 hours PRN, 1st line for pain, Starting on Sat02/05/23 at 1618, Phase I & Post-op Floor, May repeat in 1 hour if pain is uncontrolled or increasing. Max 2 doses within 1 dosing interval., Indications: PainIndications:Pain Given 02/06/2023 6:00 AM CDT 5 mg Given 02/05/2023 4:28 PM CDT [address] (PROTONIX) extended release tablet 40 mg 40 mg, oral, Daily, First dose on Sat02/06/23 at 0900, Do not crush, chew, cut, dissolve, open or otherwise manipulate tablet/capsule., Indications: Stress Ulcer ProphylaxisIndications:Stress Ulcer Prophylaxis Given 02/06/2023 8:40 AM CDT 40 mg sodium chloride 0.9% flush 0.5-20 mL 0.5-20 mL, intra-catheter, As needed, line care, Starting on Sat02/05/23 at 1113, Pre-Op, Flush volume based on line type and size. Flush before and after each use. sodium chloride 0.9% flush 0.5-20 mL 0.5-20 mL, intra-catheter, Every 8 hours scheduled, First dose on Sat02/05/23 at 1400, Pre-Procedure (IR), Flush volume based on line type and size. Given 02/06/2023 5:49 AM CDT 10 mL Given 02/05/2023 10:40 PM CDT 10 mL sodium chloride 0.9% flush 0.5-20 mL 0.5-20 mL, intra-catheter, As needed, line care, Starting on Sat02/05/23 at 1114, Pre-Procedure (IR), Flush volume based on line type and size. Flush before and after each use. sodium chloride 0.9% infusion 30 mL/hr, intravenous, Continuous, Starting on Sat02/05/23 at 1145, Pre-Op New Bag 02/05/2023 11:37 AM CDT 30 mL/hr 30 mL/h r documented in this encounter Active and Recently Administered Medications Times are shown in CDT. Scheduled Medication Order 02/04/2023 02/05/2023 02/06/2023 famotidine (PEPCID) tablet 40 mg 40 mg, oral, Nightly, First dose on Sat02/05/23 at 2300 2240 (Given - Provider: Alicia Lindsey RN) finasteride (PROSCAR) tablet 5 mg 5 mg, oral, Daily (early AM), First dose on Sat02/06/23 at 0600, Do not crush, break, or open., Indications: benign prostatic hyperplasia with lower urinary tract sx 0549 (Given - Provid er: Alicia Lindsey RN) multivit jfpqwmhs-bsmb-IU-calcium (THERA-M) tablet 1 tablet 1 tablet, oral, Daily, First dose on Sat02/06/23 at 0900, Indications: Vitamin Deficiency Prevention 0840 (Given - Provid er: Debbi Gresham RN) pantoprazole DR (PROTONIX) extended release tablet 40 mg 40 mg, oral, Daily, First dose on Sat02/06/23 at 0900, Do not crush, chew, cut, dissolve, open or otherwise manipulate tablet/capsule., Indications: Stress Ulcer Prophylaxis 0840 (Given - Provid er: Debbi Gresham RN) sodium chloride 0.9% flush 0.5-20 mL 0.5-20 mL, intra-catheter, Every 8 hours scheduled, First dose on Sat02/05/23 at 1400, Pre-Procedure (IR), Flush volume based on line type and size. 1400 (Due)2240 (Given - Provider: Alicia Lindsey, GAY) 0549 (Given - Provider: Alicia Lindsey RN) Continuous Medication Order 02/04/2023 02/05/2023 02/06/2023 sodium chloride 0.9% infusion (CANCELED) 30 mL/hr, intravenous, Continuous, Starting on Sat02/05/23 at 1145, Pre-Op 1137 (New Bag - Provider: Alona Kamara RN)1553 (Stopped - Provider: Devika Gomez RN) PRN Medication Order 02/04/2023 02/05/2023 02/06/2023 Carrier Fluids for Secondary Infusion - 0.9% Sodium Chloride 30 mL, intravenous, As needed, For priming tubing and/or flushing, Starting on Sat02/05/23 at 1113, Pre-Op, 0-250 ml/hr to flush line after IV infusions when no maintenance IV ordered. Infuse 30mL at the same rate as the secondary infusion. Run as primary IV, not intended for KVO. Carrier Fluids for Secondary Infusion - 0.9% Sodium Chloride 30 mL, intravenous, As needed, For priming tubing and/or flushing, Starting on Sat02/05/23 at 1114, Pre-Procedure (IR), 0-250 ml/hr to flush line after IV infusions when no maintenance IV ordered. Infuse 30mL at the same rate as the secondary infusion. Run as primary IV, not intended for KVO. diphenhydrAMINE (BENADRYL) 50 mg/mL injection 12.5 mg 12.5 mg, intravenous, Every 15 min PRN, itching, Starting on Sat02/05/23 at 1541, For 2 doses, Phase I, Max cumulative dose 50 mg., Indications: Itching HYDROmorphone (DILAUDID) injection 0.5 mg 0.5 mg, intravenous, Administer over 2 Minutes, Every 10 min PRN, 1st line for pain, Starting on Sat02/05/23 at 1541, Phase I, Switch to 2nd line analgesic order if pain is uncontrolled or increasing after 2 doses. Notify Anesthesiologist if total PACU dose reaches 2 mg and pain score 5/10 or more., Indications: Pain HYDROmorphone (DILAUDID) injection 1 mg 1 mg, intravenous, Administer over 2 Minutes, Every 10 min PRN, 2nd line for pain, Starting on Sat02/05/23 at 1541, Phase I, May administer 10 mintes after 2nd dose of 1st line analgesic agent for uncontrolled or increasing pain. Revert to 1st line dose if POSS of 3. Notify Anesthesiologist if total PACU dose reaches 3 mg and pain score 5/10 or more., Indications: Pain iodixanoL (VISIPAQUE) 320 mg iodine/mL injection (CANCELED) As needed, Starting on Sat02/05/23 at 1524, Intra-Op 1524 (Given - Provider: Kirill Fox MD) naloxone (NARCAN) 0.4 mg/mL injection 0.04-0.4 mg 0.04-0.4 mg, intravenous, Once as needed, other, excessive sedation/respiratory depression, Starting on Sat02/05/23 at 1541, For 1 dose, Phase I, Dilute 0.4 mg with 9 mL NS (final concentration 0.04 mg/mL). For respiratory depression (respiratory rate less than 6), administer 0.4 mg IVP over 30 seconds. For excessive sedation administer 0.04 mg (1 mL) every 1 minute until desired level of alertness. For IV, administer over 30 seconds., Indications: Opioid Toxicity oxyCODONE (ROXICODONE) tablet 5 mg 5 mg, oral, Every 4 hours PRN, 1st line for pain, Starting on Sat02/05/23 at 1618, Phase I & Post-op Floor, May repeat in 1 hour if pain is uncontrolled or increasing. Max 2 doses within 1 dosing interval., Indications: Pain 1628 (Given - Provider: Devika Gomez RN) 0600 (Given - Provider: Alicia Lindsey RN) sodium chloride 0.9% flush 0.5-20 mL 0.5-20 mL, intra-catheter, As needed, line care, Starting on Sat02/05/23 at 1113, Pre-Op, Flush volume based on line type and size. Flush before and after each use. sodium chloride 0.9% flush 0.5-20 mL 0.5-20 mL, intra-catheter, As needed, line care, Starting on Sat02/05/23 at 1114, Pre-Procedure (IR), Flush volume based on line type and size. Flush before and after each use. documented in this encounter Orders Medications Ordered That Quinn ht Not Have Been Administered Count Last Ordered Date First Ordered Date Carrier Fluids for Secondary Infusion - 0.9% Sodium Chloride 2 02/05/2023 diphenhydrAMINE (BENADRYL) 5 0 mg/mL injection 12.5 mg 1 02/05/2023 HYDROmorphone (DILAUDID) injection 0.5 mg 1 02/05/2023 HYDROmorphone (DILAUDID) injection 1 mg 1 0 02/05/2023 Lactated Ringer's (LR) infusion 1 3 naloxone (NARCAN) 0.4 mg/mL injection 0.04-0.4 mg 1 02/05/2023 sodium chloride 0.9% flush 0.5-20 mL 2 10/2022 sodium chloride 0.9% infusion 1 02/05/2023 Nursing Count Last Ordered Date First Orde red Date KOENIG CATHETER - DISCONTINUE 1 02/06/2023 Admission Count Last Ordered Date First Orde red Date ADMIT TO INPATIENT 1 02/06/2023 INITIATE OBSERVATION SERVICES 1 02/05/2023 Discharge Count Last Ordered Date First Orde red Date DISCHARGE PATIENT 1 02/06/2023 documented in this encounter Care Teams Owner [employer] Relationship Specialty Start Date End Date Grey Tomas MD PCP - General Family Practice 07/27/22 [place] [id number] [facility] [address] [place] [address] Rheumatology 02/21/17 Lashay Downs, RN Registered Nurse Pain Management 06/17/17 Duke Do, RN Registered Nurse 09/09/17 Ngozi Petty MD Radiation Oncologist Radiation Oncology 02/05/19 Jose Roberto Marx MD Referring Physician Otolaryngology 02/05/19 documented as of this encounter
--- OUTSIDE RECORDS SUMMARY | 2024-06-14 16:46 | XMS_ITS | Encounter Summary ---
Author Organization [facility] Address [address] [place] [address] Phone Care Team Providers Care Business Rules Developer Name Role Phone Criss Blanco MD Unavailable Lashay Downs RN Unavailable Unavailab Duke Goodwin RN Unavailable UnavailNgozi Husain MD Unavailable [phone] Jose Roberto Marx MD Unavailable [phone] Grey Tomas MD Primary Care Provider [phone] Reason for Visit * Reason Comments voice follow up * Consultation (Routine) - Closed Specialty Diagnoses / Procedures Referred By Contac t Referred To Contact Otolaryngology Diagnoses 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) Viraj Romeo, PA [address] [place] [address] Phone: tel: fax: [facility] (All Locations) Referral ID Status Reason Start Date Expiration Date V isits Requested Visits Authorized [id number] Closed Specialty Services Required 03/20/2022 06/02/2023 12 12 Encounter Details Date Type Department Care Team (Late st Contact Info) Description 04/24/2023 10:20 AM RESTAURANT HOSTESS Office Visit [facility] ENT [address] [facility] [address] [place] [address] Nakita Herrera MD [address] [place] [address] Carcinoma in situ of larynx (Primary Dx) Social History Tobacco Use Types [...] on file Legal Sex Male 12:56 AM RESTAURANT HOSTESS Gender Identity Not on file Sexual Orientation Not on file Occupation Industry Job Start Date Job End Date Retired Not on file Not on file Not on file documented as of this encounter Progress Notes * Nakita Herrera MD - 04/24/2023 10:20 AM CST PATIENT NAME: Samuel Sanchez : 1945 DOS: 04/24/2023 REFERRING PHYSICIAN: ZOILA Kuo CHIEF COMPLAINT: No chief complaint on file. HISTORY OF PRESENT ILLNESS: Samuel Sanchez is a 77 y.o. male who presents today for surveillance of his vocal folds. 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 This was treated with surgical resection inS2018. Since that time, he has been doing well. He was last seen in September of 2021. Last surgery in October 2020; high grade dysplasia. He had an exophytic lesion noted upon his last visit and he underwent MDL with excision and KTP laser treatment (05/01/22). Pathology consistent with CIS. He then underwent repeat KTP excision and treatment on (05/07/22) without evidence of invasionor dysplasia. Today he reports no changes in his voice. No other new complaints. EXAM: There were no vitals taken for this visit. General: Healthy appearing, no distress Psychiatric: Appropriate mood and affect Voice: rough Breathing pattern:Normal Skin: Color, texture, turgor normal. No rashes or concerning lesions on visible skin. Eyes: Lids/periorbital skin normal, conjunctivae clear, EOMs intact. Ears: External ears normal.. Nose: Normal external contour Oropharynx: Deferred Neck/Lymphatic: Supple. No adenopathy. Laryngotracheal structures are midline.. LARYNGEAL EXAM: PROCEDURE: Flexible Laryngoscopy with Stroboscopy Indication: Perceptual dysphonia, hx of dysplasia Attending: Dariana Herrera MD Findings: Nasopharynx clear Palate elevation and closure: Complete Base of tongue, vallecula, epiglottis, and piriform sinuses clear. Subglottis: clear Compression/ hyperfunction: Moderate, L>R FVF squeeze (stable) Motion: True vocal folds were bilaterally mobile On Stroboscopy: Mucosa: Well-healed, no leukoplakia Mucosal Wave: Reduced on the right Glottic Closure: Unable to discern due to squeeze Description of Procedure: The procedure was explained to the patient, who gave verbal consent. Afrin and Lidocaine 4% were used topically for anaesthesia. The endoscope was passed atraumatically through the right with the findings as described above. The scope was gently withdrawn. The patient tolerated the procedure well without complications. The findings were reviewed with the patient, whose questions were answered. ASSESSMENT/PLAN: 76 year old male with a history of right-sided T1 laryngeal SCC (2018) s/p removal of CIS in the same area (2021). Today he has no evidence of disease. I will see him again in 3 months, as he is now >1 year from his most recent treatment of CIS. DISPOSITION: 3 months Dariana Herrera MD Medical Economics Consultant [facility] Division of Laryngology Department of Otolaryngology--Head & Neck Surgery AURANT HOSTESS documented in this encounter Plan of Treatment Not on file documented as of this encounter Goals Goal Patient Goal Type Associated Problems Recent Progress Patient-Stated? Author CCM Chronic Pain Care Plan Chronic Care Management Svetlana Puentes, GAY Note: Problem: Chronic Pain Goals: 1. [...] on stairs Contact your local community or [facility] for information on exercise, fall prevention programs, or options for improving home safety. documented as of this encounter Visit Diagnoses Diagnosis Carcinoma in situ of larynx- Primary documented in this encounter Care Teams Business Rules Developer Relationship Specialty Start Date End Date Grey Tomas MD PCP - General Family Practice 07/27/22 [place] [id number] [address] Rheumatology 02/21/17 Lashay Downs, GAY Registered Nurse Pain Management 06/17/17 Duke Do, GAY Registered Nurse 09/09/17 Ngozi Petty MD Radiation Oncologist Radiation Oncology 02/05/19 Jose Roberto Marx MD Referring Physician Otolaryngology 02/05/19 documented as of this encounter
--- OUTSIDE RECORDS SUMMARY | 2024-06-14 16:46 | XMS_ITS | Encounter Summary ---
Author Organization [facility] Address [address] [place] [address] Phone Care Team Providers Care Silo Filler Name Role Phone Criss Blanco MD Unavailable Lashay Downs RN Unavailable Unavailab Duke Goodwin RN Unavailable UnavailNgozi Husain MD Unavailable [phone] Jose Roberto Marx MD Unavailable [phone] Grey Tomas MD Primary Care Provider [phone] Reason for Referral * Consultation (Routine) - Closed Specialty Diagnoses / Procedures Referred By Conthermila forrest Referred To Contact Neurology Diagnoses Subdural hematoma (HCC) Intractable episodic cluster headache Baldo Bailey PA [address] [place] [address] Phone: tel: fax: [facility] [address] [facility] [address] [place] [address] Phone: tel: fax: Referral ID Status Reason Start Date Expiration Date V isits Requested Visits Authorized [id number] Closed Specialty Services Required 07/09/2023 08/07/2024 3 3 Question Answer Please select the performing region: [facility] [[id number]] Please select the performing department: [facility] [[id number]] # of visits: 3 Comments Referral for headaches Eval and treat EDUCATION TEACHER Reason for Visit * Consultation (Routine) - Closed Specialty Diagnoses / Procedures Referred By Alcira forrest Referred To Contact Neurosurgery Diagnoses Subdural hematoma (HCC) Grey Tomas MD Phone: tel: fax: [facility] (All Locations) Referral ID Status Reason Start Date Expiration Date V isits Requested Visits Authorized [id number] Closed Specialty Services Required 04/12/2023 05/11/2024 365 365 Encounter Details Date Type Department Care Team (Late st Contact Info) Description 07/09/2023 1:15 PM ARTS EDUCATION TEACHER Office Visit [facility] Neurosurgery [facility] [address] [place] [address] Baldo Bailey PA [address] [place] [address] Intractable episodic cluster headache (Primary Dx); Subdural hematoma (HCC); Lumbar spondylosis; SDH (subdural hematoma) (HCC); Low back pain, non-specific Social History Tobacco Use Types Packs/Day Years [...] on file Legal Sex Male 12:56 AM ARTS EDUCATION TEACHER Gender Identity Not on file Sexual Orientation Not on file Occupation Industry Job Start Date Job End Date Retired Not on file Not on file Not on file documented as of this encounter Last Filed Vital Signs Vital Sign Reading Time Taken Comments Blood Pressure 114/85 07/09/2023 1:02 PM ARTS EDUCATION TEACHER Pulse 78 07/09/2023 1:02 PM ARTS EDUCATION TEACHER Temperature - - Respiratory Rate - - Oxygen Saturation - - Inhaled Oxygen Concentration - - Weight 98 kg (216 lb) 07/09/2023 1:02 PM ARTS EDUCATION TEACHER Height 185.4 cm (6' 1 ) 07/09/2023 1:02 PM ARTS EDUCATION TEACHER Body Mass Index 28.5 07/09/2023 1:02 PM ARTS EDUCATION TEACHER documented in this encounter Progress Notes * Baldo Bailey PA - 07/09/2023 1:15 PM CST RETURN VISIT Subjective HISTORY OF PRESENT ILLNESS Pleasant 78-year-old male returns to clinic with a repeat head CT prior to arrival. As you recall, the patient underwent bilateral MMA procedure for chronic subdural hematomas in February of [address] Grubbs. This was originally treated for some chronic headaches, blurriness and balance dist urbance. While he has had some improvement of balance disturbance without any change in his vision,he continues to have some bifrontal headaches that come and go in severity. He originally reported improvement of the headaches after the MMA however the symptoms have been progressively worsening. He denies any new episodes of confusion, forgetfulness. His headaches are described as pressure-like that worsens near the end of the day. He takes Benadryl at night about an hour before sleeping. Hehas taken sumatriptan without relief in his headaches. He does have a history of migraines as he describes his headaches are different in his current description of bifrontal headaches. He locates the headaches bifrontal and global described as pressure and sharp stabbing discomfort. VITAL SIGNS BP 114/85 Pulse 78 Ht 185.4 cm (6' 1 ) Wt 98 kg (216 lb) BMI 28.50 kg/m?? 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 Awaiting Rheum. appointment, Disp: , Rfl: multivitamin capsule, Take 1 capsule by mouth every morning, Disp: , Rfl: omeprazole (PriLOSEC) 40 mg capsule, Take 1 capsule (40 mg total) by mouth every morning, Disp: , Rfl: oxyCODONE (ROXICODONE) 5 mg immediate release tablet, Take 1 tablet (5 mg total) by mouth every 4 (four) hours as needed for pain (Patient not taking: Reported on 03/07/2023), Disp: 28 tablet, Rfl: 0 senna-docusate (PERICOLACE) 8.6-50 mg, Take 1 tablet by mouth daily, Disp: 60 tablet, Rfl: 0 UNABLE TO FIND, Take 1 each by mouth nightly as needed THC gummie-25mg, Disp: , Rfl: vit A/vit C/vit E/zinc/copper (PRESERVISION AREDS ORAL), Take 1 capsule by mouth 2 (two) times a day, Disp: , Rfl: Objective PHYSICAL EXAM He is alert and [...] turgor and color. Cap refills normal limits. Consultant Technology strength is intact and equal. REVIEW OF IMAGING EXAMINATION: CT head without contrast HISTORY: Subdural hematoma follow-up status post bilateral middle meningeal artery embolization TECHNIQUE: CT of the head was performed with images acquired from skull base to vertex without intravenous contrast. COMPARISON: 03/25/2023, 03/07/2023 FINDINGS: Right middle meningeal artery coil is noted. Nearly resolved trace right and improving left cerebral convexity subdural hematoma measuring up to 6 mm in maximum thickness on the left, previously measuring 17 mm. A few scattered punctate bilateral subcortical, periventricular, [...] subdural hematomas. No interval acute intracranial abnormality. Assessment/Plan Chronic subdural hematoma, left cerebellar convexity Persistent headaches Lower back pain, multilevel lumbar spondylosis PLAN Pleasant 78-year-old male returns to clinic for another evaluation, repeat head CT prior to arrival. He is status post bilateral MMA procedure with with Dr. Grubbs performed in February of 2023 for chronic bilateral subdural hematomas. His CT scan performed prior to arrival is notable for nearly resolved right-sided, decreased size of the left-sided subdural hematoma. He does returns today with some persistent headache complaints, bifrontal, cluster like that worsens later in the day. He can keep him up at night as he does rely on Benadryl an hour before bedtime. He is discuss this with his primary care provider Dr. Tomas as well. We discussed a referral to neurology has recommended the [facility]. From a neurosurgical standpoint, the patient is stable with notable interval decreased left subdural hematoma fluid remaining, nearly resolved fluid from the right. He does not require any additionalhead CTs at this time. Baldo Bailey PA-C EDUCATION TEACHER documented in this encounter Plan of Treatment Scheduled Referrals Name Type Priority Associated Diagnoses Order Schedule Ambulatory referral to Neurology Outpatient Referral Routine Subdural hematoma (HCC) Intractable episodic cluster headache Expected: 07/23/2023 (Approximate), Expires: 07/09/2024 documented as of this encounter Goals Goal [...] on stairs Contact your local community or [facility] for information on exercise, fall prevention programs, or options for improving home safety. documented as of this encounter Visit Diagnoses Diagnosis Intractable episodic cluster headache- Primary Subdural hematoma (HCC) Subdural hemorrhage Lumbar spondylosis Lumbosacral spondylosis without myelopathy SDH (subdural hematoma) (HCC) Subdural hemorrhage Low back pain, non-specific documented in this encounter Orders Outpatient Referral Count Last Ordered Date st Ordered Date AMB REFERRAL TO NEUROSURGERY 1 07/09/2023 documented in this encounter Care Teams Silo Filler Relationship Specialty Start Date End Date Grey Tomas MD PCP - General Family Practice 07/27/22 [place] [address] [facility] [address] [place] [address] Rheumatology 02/21/17 Lashay Downs, GAY Registered Nurse Pain Management 06/17/17 Duke Do, GAY Registered Nurse 09/09/17 Ngozi Petty MD Radiation Oncologist Radiation Oncology 02/05/19 Jose Roberto Marx MD Referring Physician Otolaryngology 02/05/19 documented as of this encounter
--- OUTSIDE RECORDS SUMMARY | 2024-06-14 16:46 | XMS_ITS | Encounter Summary ---
Author Organization [facility] Address [address] [place] [address] Phone Care Team Providers Care Street Roller Engineer Name Role Phone Criss Blanco MD Unavailable Lashay Downs RN Unavailable Unavailab Duke Goodwin RN Unavailable UnavailNgozi Husain MD Unavailable [phone] Jose Roberto Marx MD Unavailable [phone] Grey Tomas MD Primary Care Provider [phone] Encounter Details Date Type Department Care Team (Late st Contact Info) Description 01/31/2023 Telephone [facility] Neurosurgery [address] [facility] [address]th [place] [address] [place] [address] Aston Grubbs MD [address] [place] [address] Social History Tobacco Use Types [...] on file 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 Gender Identity Not on file Sexual Orientation Not on file Occupation Industry Job Start Date Job End Date Retired Not on file Not on file Not on file documented as of this encounter Miscellaneous Notes * Telephone Encounter - Teresa Beltran RMA - 01/31/2023 11:08 AM CDT Per patient appointment - patient will need to be schedule for [facility] Email sent to to get schedule documented in this encounter Plan of Treatment [...] on filedocumented in this encounter Care Teams Street Roller Engineer Relationship Specialty Start Date End Date Grey Tomas MD PCP - General Family Practice 07/27/22 [place] [address] [facility] [address] [place] [address] Rheumatology 02/21/17 Lashay Downs, RN Registered Nurse Pain Management 06/17/17 Duke Do, RN Registered Nurse 09/09/17 Ngozi Petty MD Radiation Oncologist Radiation Oncology 02/05/19 Jose Roberto Marx MD Referring Physician Otolaryngology 02/05/19 documented as of this encounter
--- OUTSIDE RECORDS SUMMARY | 2024-06-14 16:46 | XMS_ITS | Encounter Summary ---
Author Organization [facility] Address [address] [place] [address] Care Team Providers Care Malt Liquors Sales Representative Name Role Phone Criss Blanco MD Unavailable Lashay Downs RN Unavailable Unavailab Duke Goodwin RN Unavailable UnavailNgozi Husain MD Unavailable [phone] Jose Roberto Marx MD Unavailable [phone] Grey Tomas MD Primary Care Provider [phone] Encounter Details Date Type Department Care Team (Latest Contact Info) Description 10/02/2023 8:21 AM CDT - 10/02/2023 11:59 PM CDT Hospital Encounter [facility] [address] [place] [address] Cough, unspecified type Discharge Disposition: Discharge to home or self [...] on file 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 Gender Identity Not on file Sexual Orientation Not on file Occupation Industry Job Start Date Job End Date Retired Not on file Not on file Not on file documented as of this encounter Medications at Time of Discharge fexofenadine (Hui Allergy) 180 mg tablet Take 1 tablet (180 mg total) by mouth daily 09/02/2023 finasteride (PROSCAR) 5 mg tabletIndications:be nign prostatic hyperplasia with lower urinary tract sx Take 1 tablet (5 mg total) by mouth administrator pesticide before breakfast multivitamin capsuleIndications:V itamin Deficiency Prevention Take 1 capsule by mouth [...] (six) hours as needed for itching 4 guaiFENesin-codeine (GUAITUSS AC) liquid 100-10 mg/5 mL Take 10 mL by mouth 2 (two) times a day 07/24/2023 4 rizatriptan BRUSH MACHINE SETTER (MAXALT-BRUSH MACHINE SETTER) 10 mg disintegrating tabletIndications:Mi graine Take 1 tablet (10 mg total) by mouth every 2 (two) hours as needed for migraine May repeat in 2 hours if unresolved. Do not exceed 30 mg in 24 hours. 9 tablet 3 08/16/2023 4 UNABLE TO FIND Take 1 each [...] on stairs Contact your local community or [facility] for information on exercise, fall prevention programs, or options for improving home safety. documented as of this encounter Procedures Procedure Name Priority Date/Time Associated Diagnosis Comments XR CHEST PA LATERAL 2 VIEWS Schedule Routine, Read Routine (OP Routine) 10/02/2023 9:29 AM CDT Cough, unspecified type documented in this encounter Results * X-ray chest 2 views (10/02/2023 9:29 AM CDT) Anatomical Region Laterality Modality Body, Chest N/A Computed Radiogr aphy 10/03/2023 9:55 PM CDT Narrative 10/03/2023 9:57 PM CDT EXAM DESCRIPTION: XR CHEST PA LATERAL 2 VIEWS REASON FOR STUDY: ?? Chronic cough x 5-6 years ??Former smoker ??No surgeries ?? TECHNIQUE: 2 ??radiographic view(s) of the chest. COMPARISON: 07/01/2022 FINDINGS: Prominent interstitial markings are unchanged. ??No consolidation. ??No significant pleural effusion or pneumothorax. The thoracic aorta is tortuous and likely ectatic. ??This is grossly unchanged. The heart is normal in size IMPRESSION: 1. ?? No gross acute cardiopulmonary abnormality. THIS IS AN ELECTRONICALLY VERIFIED FINAL REPORT 10/03/2023 9:57 PM - Electronically signed by ??Steven Hernández M.D. AG: DIANA D: ??10/03/2023 9:57 PM T: ??10/03/2023 9:57 PM Report ID: [id number] Reading Location: ??[id number] Procedure Note Steven Hernández MD - 10/03/2023 EXAM DESCRIPTION: XR CHEST PA LATERAL 2 VIEWS REASON FOR STUDY: Chronic cough x 5-6 years Former smoker No surgeries TECHNIQUE: 2 radiographic view(s) of the chest. COMPARISON: 07/01/2022 FINDINGS: Prominent interstitial markings are unchanged. No consolidation. No significant pleural effusion or pneumothorax. The thoracic aorta is tortuous and likely ectatic. This is grosslyunchanged. The heart is normal in size IMPRESSION: 1. No gross acute cardiopulmonary abnormality. THIS IS AN ELECTRONICALLY VERIFIED FINAL REPORT 10/03/2023 9:57 PM - Electronically signed by Steven Hernández M.D. AG: DINAA Report ID: [id number] Reading Location: [id number] Carlos Perez MD IMG XR PROCEDURES Final Result documented in this encounter Visit Diagnoses Diagnosis Cough, unspecified type documented in this encounter Care Teams Malt Liquors Sales Representative Relationship Specialty Start Date End Date Grey Tomas MD PCP - General Family Practice 07/27/22 [place] [address] [facility] [address] [place] [address] Rheumatology 02/21/17 Lashay Downs, RN Registered Nurse Pain Management 06/17/17 Duke Do, RN Registered Nurse 09/09/17 Ngozi Petty MD Radiation Oncologist Radiation Oncology 02/05/19 Jose Roberto Marx MD Referring Physician Otolaryngology 02/05/19 documented as of this encounter
--- OUTSIDE RECORDS SUMMARY | 2024-06-14 16:46 | XMS_ITS | Encounter Summary ---
Author Organization [facility] Address [address] [place] [address] Phone Care Team Providers Care Voice Over Announcer Name Role Phone Criss Blanco MD Unavailable Lashay Downs RN Unavailable Unavailab Duke Goodwin RN Unavailable UnavailNgozi Husain MD Unavailable [phone] Jose Roberto Marx MD Unavailable [phone] Grey Tomas MD Primary Care Provider [phone] Reason for Referral * MRI/CAT/PET Scan (Routine) - Closed Specialty Diagnoses / Procedures Referred By Contac t Referred To Contact Radiology Diagnoses Subdural hematoma (HCC) Procedures CT Head WO Contrast Baldo Bailey PA [address] [place] [address] Phone: tel: fax: [place] [address] [place] [address] Referral ID Status Reason Start Date Expiration Date Visits Re quested Visits Authorized [id number] Closed 03/08/2023 04/06/2024 1 1 Encounter Details Date Type Department Care Team (Late st Contact Info) Description 03/08/[address] [facility] Neurosurgery [address] 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 Electronically signed by: Indigo Mckenzie M.D. Narrative 04/10/2023 12:43 PM FIRE MANAGEMENT OFFICER EXAMINATION: CT head without contrast HISTORY: Subdural [...] A2 segments of both anterior cerebral arteries. Procedure Note Indigo Delgado MD - 04/10/2023 EXAMINATION: CT head without contrast HISTORY: Subdural [...] arteries. IMPRESSION: Stable bilateral convexity subdural collections. Electronically signed by: Indigo Mckenzie M.D. us Baldo CUM[facility] IMG CT PROCEDURES Final R esult documented in this encounter Visit Diagnoses Diagnosis Subdural hematoma (HCC)- Primary Subdural hemorrhage Subdural hematoma (HCC) Subdural hemorrhage documented in this encounter Care Teams Voice Over Announcer Relationship Specialty Start Date End Date Grey Tomas MD PCP - General Family Practice 07/27/22 [place] [address] [facility] [address] [place] [address] Rheumatology 02/21/17 Lashay Downs, RN Registered Nurse Pain Management 06/17/17 Duke Do, RN Registered Nurse 09/09/17 Ngozi Petty MD Radiation Oncologist Radiation Oncology 02/05/19 Jose Roberto Marx MD Referring Physician Otolaryngology 02/05/19 documented as of this encounter
--- OUTSIDE RECORDS SUMMARY | 2024-06-14 16:46 | XMS_ITS | Encounter Summary ---
Author Organization [facility] Healthcare Address [address] [place] [address] Care Team Providers Care Lasting Room Machine Operator Name Role Phone Criss Blanco MD Unavailable Lashay Downs RN Unavailable Unavailab Duke Goodwin RN Unavailable UnavailNgozi Husain MD Unavailable [phone] Jose Roberto Marx MD Unavailable [phone] Grey Tomas MD Primary Care Provider [phone] Encounter Details Date Type Department Care Team (Late st Contact Info) Description 12/27/2023 Telephone [facility] Pulmonary at [address] [place] [address] Carlos Perez MD [address] [place] [address] [address] [place] [address] Social History Tobacco Use Types [...] on file 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 pt verbalized understanding and said he will call his pcp office today. documented in this encounter Plan of Treatment [...] stairs Contact your local community or [facility] for information on exercise, fall prevention programs, or options for improving home safety. documented as of this encounter Visit Diagnoses Not on filedocumented in this encounter Care Teams Lasting Room Machine Operator Relationship Specialty Start Date End Date Grey Tomas MD PCP - General Family Practice 07/27/22 [place] [address] [facility] [address] [place] [address] Rheumatology 02/21/17 Lashay Downs, RN Registered Nurse Pain Management 06/17/17 Duke Do, RN Registered Nurse 09/09/17 Ngozi Petty MD Radiation Oncologist Radiation Oncology 02/05/19 Jose Roberto Marx MD Referring Physician Otolaryngology 02/05/19 documented as of this encounter
--- OUTSIDE RECORDS SUMMARY | 2024-06-14 16:46 | XMS_ITS | Encounter Summary ---
Author Organization [facility] Healthcare Address [address] [place] [address] Care Team Providers Care Fashion Director Party Plan Sales Name Role Phone Criss Blanco MD Unavailable Lashay Downs RN Unavailable Unavailab Duke Goodwin RN Unavailable UnavailNgozi Husain MD Unavailable [phone] Jose Roberto Marx MD Unavailable [phone] Grey Tomas MD Primary Care Provider [phone] Reason for Referral * Procedure (Routine) - Closed Specialty Diagnoses / Procedures Referred By Contac t Referred To Contact Diagnoses Cough, unspecified type Procedures Pulmonary Function Test -[facility]; Complete/Full (Spirometry, Pleth and DLCO) Carlos Perez MD [address] [place] [address] Phone: tel: fax: Referral ID Status Reason Start Date Expiration Date Visits Re quested Visits Authorized [id number] Closed 09/24/2023 10/23/2024 1 1 Reason for Visit * Reason Comments Shortness of Breath Wheezing Cough * Consultation (Routine) - Closed Specialty Diagnoses / Procedures Referred By Contac t Referred To Contact Pulmonary Disease / Pulmonology Diagnoses Wheezing Cough, unspecified type Dyspnea, unspecified type Chronic sinusitis, unspecified location Allergy, initial encounter Grey Tomas MD Phone: tel: fax: Carlos Perez MD [address] [place] [address] [address] [place] [address] Phone: tel: fax: Referral ID Status Reason Start Date Expiration Date V isits Requested Visits Authorized [id number] Closed Specialty Services Required 09/18/2023 10/17/2024 1 1 Encounter Details Date Type Department Care Team (Late st Contact Info) Description 09/24/2023 11:15 AM CDT Office Visit [facility] Pulmonary at [address] [place] [address] Carlos Perez MD [address] [place] [address] [address] [place] [address] 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); Cough, unspecified type; Non-seasonal allergic rhinitis, unspecified trigger Social History [...] file 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 Gender Identity Not on file Sexual Orientation Not on file Occupation Industry Job Start Date Job End Date Retired Not on file Not on file Not on file documented as of this encounter Last Filed Vital Signs Vital Sign Reading Time Taken Comments Blood Pressure 110/60 09/24/2023 11:32 AM CDT Pulse 89 09/24/2023 11:32 AM CDT Temperature 36.6 ??C (97.8 ??F) 09/24/2023 11:32 AM C DT Respiratory Rate 8 09/24/2023 11:32 AM CDT Oxygen Saturation 96% 09/24/2023 11:32 AM CDT Inhaled Oxygen Concentration - - Weight 99 kg (218 lb 4.8 oz) 09/24/2023 11:32 AM CDT Height 182.9 cm (6') 09/24/2023 11:32 AM CDT Body Mass Index 29.61 09/24/2023 11:32 AM CDT documented in this encounter Progress Notes * Carlos Perez MD - 09/24/2023 11:15 AM CDT Images from the original note were not included. PULMONARY CLINIC NOTE Visit Date: 09/24/2023 Chief Complaint: Presents today for Chronic cough HPI: Samuel Sanchez is a 78 y.o. 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 Patient presents with complaints of a chronic cough. He believes is started about 1 year ago. Minimal phlegm clear/white. He reports more discomfort with headache with coughing since his surgery in February 2023 for a traumatic subdural Interval History: No significant fluctuation throughout the day or throughout the change in season.He does have significant heartburn and reflux already on omeprazole twice daily. Allergy symptoms are not well controlled with kristie. He reports itchy, watery eyes. He has tried multiple therapies in the last including and intranasal spray and montelukast. 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 Past Medical History: Past Medical History: Diagnosis Date Allergic rhinitis Arthritis arthritis Calculus of kidney Nephrolithiasis Cancer of vocal cord (CMS/HCC) (HCC) Depression Gastric reflux Gastroesophageal reflux disease acid reflux Headache, tension-type History of multiple allergies allergies HX OTHER MEDICAL 1981 L shoulder HX OTHER MEDICAL 1981 R shoulder HX OTHER MEDICAL 1985 R shoulder bone spurs HX OTHER MEDICAL 1962 ear drum patch HX OTHER MEDICAL 1977 testicle HX OTHER MEDICAL Headache, migraine HX OTHER MEDICAL 1980 Bisept tendonitis HX OTHER MEDICAL 1993 Pinched Prostate HX OTHER MEDICAL 2000 kidney stone HX OTHER MEDICAL hemorroids; Comments: [facility] [place] HX OTHER MEDICAL bladder infection HX OTHER MEDICAL kidney stone Low back pain Migraine Rheumatoid arthritis (HCC) Family History: Family History Adopted: Yes Problem Relation Age of Onset Other Other adopted Other Other adopted Anesthesia problems Neg Hx Social History: Former smoker. Quit in 1995. Smoked 1 ppd over 40 years on average Review of Systems: Pertinent positives notes in HPI. Otherwise a 10 pt review of systems is negative. OBJECTIVE: Physical Exam: Vitals: 09/24/23 1132 BP: 110/60 BP Location: Left arm Patient Position: Sitting Pulse: 89 Resp: 8 Temp: 36.6 ??C (97.8 ??F) TempSrc: Temporal SpO2: 96% Weight: 99 kg (218 lb 4.8 oz) Height: 182.9 cm (6') General: appears comfortable in no apparent distress Eyes: anicteric, no redness or drainage, EOMI Neck: no thyromegaly or lymphadenopathy Cardiovascular: regular rate and rhythm, no murmurs, no edema or JVD Respiratory: clear to auscultation bilaterally, non labored Gastrointestinal: abdomen is soft and non-tender, + bowel sounds Musculoskeletal: no joint swelling or tenderness Neurologic: No focal deficits Skin: warm and dry Data Review: No significant erythrocytosis, mood [id number] peripheral eosinophilia Pulmonary Functions Testing Results: None to review ASSESSMENT AND PLAN 1. Cough, unspecified type - multiple possible etiologies including allergies with postnasal drip including GERD and reflux - will start with a chest x-ray and pulmonary function testing - continue other therapies as below - Ambulatory referral to Pulmonology - X-ray chest 2 views; Future - Pulmonary Function Test -[facility]; Complete/Full (Spirometry, Pleth and DLCO); Future 2. Non-seasonal allergic rhinitis, unspecified trigger - discussed the role of oral antihistamines and intranasal therapy, continue Kristie - may add Singulair - Ambulatory referral to Pulmonology 3. Cigarette nicotine dependence in remission - the patient has remote smoking history without a diagnosis of COPD - pulmonary function testing as above - he is not a candidate for lung cancer screening Carlos Perez MD There may be syntax/grammatical errors in this note due to the use of voice recognition software. documented in this encounter Plan of Treatment [...] stairs Contact your local community or [facility] for information on exercise, fall prevention programs, or options for improving home safety. documented as of this encounter Results * X-ray chest 2 [...] PM T: ??10/03/2023 9:57 PM Report ID: [id number] Reading Location: ??[id number] Procedure Note Steven Hernández MD - 10/03/2023 [...] Electronically signed by Steven Hernández M.D. AG: DIANA Report ID: [id number] Reading Location: [id number] Carlos Perez MD IMG XR PROCEDURES Final Result * Pulmonary Function Test -[facility]; Complete/Full (Spirometry, Pleth and DLCO) (10/02/2023 9:15 AM CDT) Anatomical Region Laterality Modality PFT Narrative 10/02/2023 9:24 AM CDT Images from the original result were not included. The patient has adequate technique for interpretation. ?? The patient has normal spirometry which did not improve significantly following bronchodilators. ?? The total lung capacity and residual volume are within normal limits. ?? The patient has a normal diffusing capacity. Carlos Perez MD PFT ORDERABLES Final Result documented in this encounter Visit Diagnoses Diagnosis Cigarette nicotine dependence in remission- Primary Cough, unspecified type Non-seasonal allergic rhinitis, unspecified trigger Cough, unspecified type Cough, unspecified type documented in this encounter Historical Medications * This list may reflect changes made after this encounter. fexofenadine (Kristie Allergy) 180 mg tablet Take 1 tablet (180 mg total) by mouth daily 09/02/2023 added in this encounter Orders Outpatient Referral Count Last Ordered Date Fir st Ordered Date AMB REFERRAL TO PULMONOLOGY 1 09/24/2023 documented in this encounter Care Teams Fashion Director Party Plan Sales Relationship Specialty Start Date End Date Grey Tomas MD PCP - General Family Practice 07/27/22 [place] [address] [facility] [address] [place] [address] Rheumatology 02/21/17 Lashay Downs, RN Registered Nurse Pain Management 06/17/17 Duke Do, RN Registered Nurse 09/09/17 Ngozi Petty MD Radiation Oncologist Radiation Oncology 02/05/19 Jose Roberto Marx MD Referring Physician Otolaryngology 02/05/19 documented as of this encounter
--- OUTSIDE RECORDS SUMMARY | 2024-06-14 16:46 | XMS_ITS | Encounter Summary ---
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 Encounter Details Date Type Department Care Team (Late st Contact Info) Description 01/08/2024 8:20 AM CDT Office Visit [facility] E[facility] [address] [facility] [address] [place] [address] Nakita Herrera MD [address] [place] [address] Carcinoma in situ of larynx (Primary Dx); Dysphonia Social History Tobacco Use Types Packs/Day Years [...] on file 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 provider found CHIEF COMPLAINT: No chief complaint on file. HISTORY OF PRESENT ILLNESS: Samuel Sanchez is a 78 y.o. male who presents today for surveillance [...] of invasionor dysplasia. Today he reports no issues with his voice. He had been very sick since he turned 78. He has had theflu, UTIs, pneumonia as well. He never required hospitalization. No issues with his voice, swallow or breathing. No neck or throat soreness or ear pain. EXAM: There were no vitals taken for [...] disease. I will see him again in 6 months. DISPOSITION: 6 months Dariana Herrera MD Set Up Mechanic [employer] [facility] Division of Laryngology Department of Otolaryngology--Head & Neck Surgery documented in this encounter Plan of Treatment [...] on stairs Contact your local community or [facility] for information on exercise, fall prevention programs, or options for improving home safety. 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 documented in this encounter Discontinued Medications Medication Sig Discontinue Reason Start Date End Da te diphenhydrAMINE 25 mg capsule Take 1 tablet/capsule (25 mg total) by mouth every 6 (six) hours as needed for itching Therapy completed 01/08/2024 documented as of this encounter Care Teams Social Worker Health Services Relationship Specialty Start Date End Date Grey Tomas MD PCP - General Family Practice 07/27/22 [place] [address] [facility] [address] [place] [address] Rheumatology 02/21/17 Lashay Downs, GAY Registered Nurse Pain Management 06/17/17 Duke Do, GAY Registered Nurse 09/09/17 Ngozi Petty MD Radiation Oncologist Radiation Oncology 02/05/19 Jose Roberto Marx MD Referring Physician Otolaryngology 02/05/19 documented as of this encounter
--- OUTSIDE RECORDS SUMMARY | 2024-06-14 16:46 | XMS_ITS | Encounter Summary ---
Author Organization [facility] Healthcare Address [address] [place] [address] Care Team Providers Care Completion Manager Name Role Phone Criss Blanco MD Unavailable Lashay Downs RN Unavailable Unavailab Duke Goodwin RN Unavailable UnavailNgozi Husain MD Unavailable [phone] Jose Roberto Marx MD Unavailable [phone] Grey Tomas MD Primary Care Provider [phone] Reason for Referral * MRI/CAT/PET Scan (Routine) - Closed Specialty Diagnoses / Procedures Referred By Alcira forrest Referred To Contact Radiology Diagnoses Subdural hematoma (HCC) Procedures CT Head WO Contrast Baldo Bailey PA [address] [place] [address] Phone: tel: fax: [address] [address] Referral ID Status Reason Start Date Expiration Date Visits Re quested Visits Authorized [id number] Closed 03/08/2023 04/06/2024 1 1 MOTIVE HEAVY MECHANIC Reason for Visit * MRI/CAT/PET Scan (Routine) - Closed Specialty Diagnoses / Procedures Referred By Alcira forrest Referred To Contact Radiology Diagnoses Subdural hematoma (HCC) Procedures CT Head WO Contrast Baldo Bailey PA [address] [place] [address] Phone: tel: fax: [facility] [place]za [phone] Referral ID Status Reason Start Date Expiration Date Visits Re quested Visits Authorized [id number] Closed 03/08/2023 04/06/2024 1 1 Encounter Details Date Type Department Care Team (Latest Contact Info) Description 04/10/2023 12:10 PM AUTOMOTIVE HEAVY MECHANIC - 04/10/2023 11:59 PM AUTOMOTIVE HEAVY MECHANIC Hospital Encounter [facility] [id number]adas [id number] Subdural hematoma (HCC) Discharge Disposition: Discharge to [...] on file Legal Sex Male 12:56 AM AUTOMOTIVE HEAVY MECHANIC Gender Identity Not on file Sexual Orientation Not on file Occupation Industry Job Start Date Job End Date Retired Not on file Not on file Not on file documented as of this encounter Medications at Time of Discharge finasteride (PROSCAR) 5 mg tabletIndications :benign prostatic hyperplasia with lower urinary tract sx Take 1 tablet (5 mg total) by 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 Electronically signed by: Indigo Mckenzie M.D. Narrative 04/10/2023 12:43 PM AUTOMOTIVE HEAVY MECHANIC EXAMINATION: CT head without contrast HISTORY: Subdural [...] hemorrhage documented in this encounter Care Teams Completion Manager Relationship Specialty Start Date End Date Grey Tomas MD PCP - General Family Practice 07/27/22 [place] [address] [address] Rheumatology 02/21/17 Lashay Downs, GAY Registered Nurse Pain Management 06/17/17 Duke Do, RN Registered Nurse 09/09/17 Ngozi Petty MD Radiation Oncologist Radiation Oncology 02/05/19 Jose Roberto Marx MD Referring Physician Otolaryngology 02/05/19 documented as of this encounter
--- OUTSIDE RECORDS SUMMARY | 2024-06-14 16:46 | XMS_ITS | Encounter Summary ---
Author Organization [facility] Healthcare Address [address] [place] [address] Care Team Providers Care Merchandise Support Associate Name Role Phone Criss Blnaco MD Unavailable Lashay Downs RN Unavailable Unavailab Duke Goodwin RN Unavailable UnavailNgozi Husain MD Unavailable [phone] Jose Roberto Marx MD Unavailable [phone] Grey Tomas MD Primary Care Provider [phone] Reason for Visit * Reason Comments Cough Productive cough, na bryanna drip/discharge, body aches, headaches, started on 10-21-23 Encounter Details Date Type Department Care Team (Late st Contact Info) Description 10/23/2023 10:15 AM CDT Office Visit [facility] at [address] [place] [address] Claire Loyd, JOSEPH [address] [place] [address] Upper respiratory tract infection, unspecified type (Primary Dx); Acute cough; Sore throat Social History Tobacco Use Types Packs/Day Years [...] on file 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 Gender Identity Not on file Sexual Orientation Not on file Occupation Industry Job Start Date Job End Date Retired Not on file Not on file Not on file documented as of this encounter Last Filed Vital Signs Vital Sign Reading Time Taken Comments Blood Pressure 110/70 10/23/2023 10:10 AM CDT Pulse 79 10/23/2023 10:10 AM CDT Temperature 36.5 ??C (97.7 ??F) 10/23/2023 10:10 AM C DT Respiratory Rate 18 10/23/2023 10:10 AM CDT Oxygen Saturation 97% 10/23/2023 10:10 AM CDT Inhaled Oxygen Concentration - - Weight 97.5 kg (215 lb) 10/23/2023 10:10 AM CDT Height 182.9 cm (6') 10/23/2023 10:10 AM CDT Body Mass Index 29.16 10/23/2023 10:10 AM CDT documented in this encounter Patient Instructions * Patient Instructions* Claire Loyd NP - 10/23/2023 10:15 AM CDT If you have no improvement or worsening of your symptoms, please follow up with your Primary Care Provider, [facility] and or Emergency Room. I strive to provide you with EXCELLENT service. You may receive a survey after your visit today. If you cannot rate your experience as EXCELLENT, please let us know how we can improve and better meet your needs. Thank you for choosing [facility]! It was my pleasure to see you today, I hope you feel better soon! If you were prescribed any medication, take the medication until gone If you have a congested cough with thick mucus, you can use: Cough meds like Mucinex DM or Robitssun DM Cold Meds- Dayquil, Nyquil, Theraflu, Tylenol Cold/Sinus, Alkaseltzer Cold Sudafed for nasal congestion Flonase for sinuses Corcidin HBP - for high blood pressure Zyrtec/Claritin for drainage Drink plenty of fluids to stay hydrated Humidifier Sinus Rinses if needed If you experience any shortness of breath or chest tightness- go to ER for further treatment If you are not getting any better- follow up w PCP Avoid lung irritants Quit smoking Cold air can make symptoms worse documented in this encounter Ordered Prescriptions Prescription Sig Dispense Quantity Refills Last Filled Start Date End Date promethazine-DM (PROMETHAZINE-DM) 1.25-3 mg/mL syrupIndications:Co ugh Take 5-10 mL by mouth 4 (four) times a day as needed for cough 240 mL 10/23/2023 documented in this encounter Progress Notes * Claire Loyd NP - 10/23/2023 10:15 AM CDT Images from the original note were not included. Subjective/Objective Patient ID: Samuel Sanchez is a 78 y.o. male. Chief Complaint Cough (Productive cough, nasal drip/discharge, body aches, headaches, started on 5-24) Presents to clinic for PND, runny nose, cough, body aches, headaches x2 days. Has taken nyquil, tylenol, kristie. Denies fever. Cough Review of Systems Respiratory: Positive for cough. All systems reviewed and are negative or non contributory for this patient's presentation today other than as stated in the HPI. Physical Exam Vitals reviewed. Constitutional: General: He is not in acute distress. Appearance: Normal appearance. He is well-developed. He is not ill-appearing. HENT: Head: Normocephalic. Right Ear: Tympanic membrane, ear canal and external ear normal. Left Ear: Tympanic membrane, ear canal and external ear normal. Nose: No congestion or rhinorrhea. Right Sinus: No maxillary sinus tenderness or frontal sinus tenderness. Left Sinus: No maxillary sinus tenderness or frontal sinus tenderness. Mouth/Throat: Lips: Mcpherson. Mouth: Mucous membranes are moist. Pharynx: Oropharynx is clear. Posterior oropharyngeal erythema present. Eyes: General: Right eye: No discharge. Left eye: No discharge. Conjunctiva/sclera: Conjunctivae normal. Cardiovascular: Rate and Rhythm: Normal rate and regular rhythm. Pulmonary: Effort: Pulmonary effort is normal. No respiratory distress. Breath sounds: Normal air entry. Examination of the left-lower field reveals rhonchi. Rhonchi present. Abdominal: Tenderness: There is no abdominal tenderness. Musculoskeletal: General: Normal range of motion. Cervical back: Neck supple. Lymphadenopathy: Head: Right side of head: No tonsillar adenopathy. Left side of head: No tonsillar adenopathy. Cervical: No cervical adenopathy. Skin: General: Skin is warm and dry. Findings: No rash. Neurological: Mental Status: He is alert and oriented to person, place, and time. Mental status is at baseline. Psychiatric: Attention and Perception: Attention normal. Mood and Affect: Mood normal. Behavior: Behavior normal. Behavior is cooperative. Thought Content: Thought content normal. Judgment: Judgment normal. Vitals: 10/23/23 1010 BP: 110/70 BP Location: Left arm Patient Position: Sitting Pulse: 79 Resp: 18 Temp: 36.5 ??C (97.7 ??F) TempSrc: Oral SpO2: 97% Weight: 97.5 kg (215 lb) Height: 182.9 cm (6') Assessment/Plan If you were prescribed any medication, take the medication until gone If you have a congested cough with thick mucus, you can use: Cough meds like Mucinex DM or Robitssun DM Cold Meds- Dayquil, Nyquil, Theraflu, Tylenol Cold/Sinus, Alkaseltzer Cold Sudafed for nasal congestion Flonase for sinuses Corcidin HBP - for high blood pressure Zyrtec/Claritin for drainage Drink plenty of fluids to stay hydrated Humidifier Sinus Rinses if needed If you experience any shortness of breath or chest tightness- go to ER for further treatment If you are not getting any better- follow up w PCP Avoid lung irritants Quit smoking Cold air can make symptoms worse Diagnoses and all orders for this visit: Upper respiratory tract infection, unspecified type (Primary) Acute cough - XR Chest PA Lateral 2 Views; Future - promethazine-DM (PROMETHAZINE-DM) 1.25-3 mg/mL syrup; Take 5-10 mL by mouth 4 (four) times a day as needed for cough Sore throat - POCT rapid strep A - POC Influenza A/B, COVID-19 antigen Recent Results (from the past 4 hour(s)) POCT rapid strep A Collection Time: 10/23/23 10:25 AM Result Value Ref Range Rapid Strep A, POC Negative Negative POC Influenza A/B, COVID-19 antigen Collection Time: 10/23/23 10:34 AM Result Value Ref Range Influenza A Ag, POC Negative Negative Influenza B Ag, POC Negative Negative COVID-19 Ag POC Presumptive Negative Presumptive Negative, Invalid Patient Education: Disposition Treatment plan including expectations, follow up, and return precautions discussed with patient/parent, verbalizes understanding. Medication dosage, use, and potential adverse reactions discussed with patient/parent. Advised to follow up with PCP if symptoms do not resolve as expected or sooner if condition worsens. Signs/symptoms warranting ER evaluation reviewed. Patient and/or guardian was given an opportunity to ask questions, questions answered. Claire Loyd NP documented in this encounter Plan of Treatment [...] Procedure Name Priority Date/Time Associated Diagnosis Comments POC INFLUENZA A/B, COVID-19 ANTIGEN Routine 10/23/2023 10:34 AM CDT Sore throat POCT RAPID STREP Routine 10/23/2023 10:2 5 AM CDT Sore throat documented in this encounter Results * XR [...] PM T: ??10/23/2023 1:14 PM Report ID: [id number] Reading Location: ??[id number] Procedure Note Adryan Gary MD - 10/23/2023 [...] Adryan Gary M.D. KR: KERI Report ID: [id number] Reading Location: [place] [address] Claire Loyd DAIRY CLERK IMG XR PROCEDURES Fin al Result * POC Influenza A/B, COVID-19 antigen (10/23/2023 10:34 AM CDT) Influenza A Ag, POC Negative Negative [facility] Influenza B Ag, POC Negative Negative [facility] COVID-19 Ag POC Presumptive Negative Presumptive Negative, Invalid [facility] Nasopharyngeal 10/23/2023 10 :34 AM CDT Claire Loyd DAIRY CLERK POINT OF CARE TEST OR DERABLES Final Result [facility] [address] [address] * POCT rapid strep A (10/23/2023 10:25 AM CDT) Rapid Strep A, POC Negative Negative Swab 10/23/2023 10:2 5 AM CDT Clairebeny Loyd NP POINT OF CARE TEST OR DERABLES Final Result documented in this encounter Visit Diagnoses Diagnosis Upper respiratory tract infection, unspecified type- Primary Acute cough Sore throat Acute pharyngitis Acute cough documented in this encounter Discontinued Medications Medication Sig Discontinue Reason Start Date End Da te guaiFENesin-codeine (GUAITUSS AC) liquid 100-10 mg/5 mL Take 10 mL by mouth 2 (two) times a day Therapy completed 07/24/2023 10/23/2023 rizatriptan BOOKSTORE CLERK (MAXALT-BOOKSTORE CLERK) 10 mg disintegrating tabletIndications:Migrain e Take 1 tablet (10 mg total) by mouth every 2 (two) hours as needed for migraine May repeat in 2 hours if unresolved. Do not exceed 30 mg in 24 hours. Therapy completed 08/16/2023 10/23/2023 UNABLE TO FIND Take 1 each by mouth nightly as needed THC gummie-25mg Therapy completed 10/23/2023 documented as of this encounter Additional Health Concerns Infection Onset Date Last Indicated Resolved Time COVID: Suspected 10/23/2023 10/23/2023 10/24/2023 3:06 AM CDT documented as of this encounter Care Teams Merchandise Support Associate Relationship Specialty Start Date End Date Grey Tomas MD PCP - General Family Practice 07/27/22 [place] [address] [facility] [address] [place] [address] Rheumatology 02/21/17 Lashay Downs, RN Registered Nurse Pain Management 06/17/17 Duke Do, GAY Registered Nurse 09/09/17 Ngozi Petty MD Radiation Oncologist Radiation Oncology 02/05/19 Jose Roberto Marx MD Referring Physician Otolaryngology 02/05/19 documented as of this encounter
--- OUTSIDE RECORDS SUMMARY | 2024-06-14 16:46 | XMS_ITS | Encounter Summary ---
Author Organization [facility] Healthcare Address [address] [place] [address] Care Team Providers Care Armature Inspector Name Role Phone Criss Blanco MD Unavailable Lashay Downs RN Unavailable Unavailab Duke Goodwin RN Unavailable UnavailNgozi Husain MD Unavailable [phone] Jose Roberto Marx MD Unavailable [phone] Grey Tomas MD Primary Care Provider [phone] Reason for Visit * Consultation (Routine) - Closed Specialty Diagnoses / Procedures Referred By Alcira forrest Referred To Contact Neurology Diagnoses Cerebral infarction, unspecified mechanism (HCC) Grey Tomas MD Phone: tel: fax: Samuel Stephens MD [address] [place] [address] [address] [place] [address] Phone: tel: fax: Referral ID Status Reason Start Date Expiration Date V isits Requested Visits Authorized [id number] Closed Specialty Services Required 07/18/2023 08/16/2024 1 1 Encounter Details Date Type Department Care Team (Late st Contact Info) Description 08/16/2023 9:45 AM CDT Office Visit [facility] [address] [place] [address] Samuel Stephens MD [address] [place] [address] [address] [place] [address] Chronic migraine without aura without status migrainosus, not intractable (Primary Dx); Cerebral infarction, unspecified mechanism (HCC); SDH (subdural hematoma) (HCC) Social History Tobacco [...] on file 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 Gender Identity Not on file Sexual Orientation Not on file Occupation Industry Job Start Date Job End Date Retired Not on file Not on file Not on file documented as of this encounter Last Filed Vital Signs Vital Sign Reading Time Taken Comments Blood Pressure 128/75 08/16/2023 9:54 AM CDT Pulse 74 08/16/2023 9:54 AM CDT Temperature - - Respiratory Rate 18 08/16/2023 9:54 AM CDT Oxygen Saturation 97% 08/16/2023 9:54 AM CDT Inhaled Oxygen Concentration - - Weight 98 kg (216 lb) 08/16/2023 9:54 AM CDT Height 182.9 cm (6') 08/16/2023 9:54 AM CDT Body Mass Index 29.29 08/16/2023 9:54 AM CDT documented in this encounter Ordered Prescriptions Prescription Sig Dispense Quantity Refills Last Filled Start Date End Date rizatriptan LIQUEFACTION PLANT OPERATOR (MAXALT-LIQUEFACTION PLANT OPERATOR) 10 mg disintegrating tabletIndications:Mi graine Take 1 tablet (10 mg total) by mouth every 2 (two) hours as needed for migraine May repeat in 2 hours if unresolved. Do not exceed 30 mg in 24 hours. 9 tablet 3 08/16/2023 4 documented in this encounter Progress Notes * Samuel Stephens MD - 08/16/2023 9:45 AM CDT Subjective/Objective Patient ID: Samuel Sanchez is a 78 y.o. male. Chief Complaint I am seeing this 78 y.o. male who is here for follow-up for headache and subdural hematoma HPI Headache: For details, see 08/03/2021 note. Since last visit on 08/03/2021, patient was put on topiramate 50 mg b.i.d. and sumatriptan as needed.Patient did not show up follow-up. He canceled follow-up visit with Neurology MANAGER COSMETICS on 11/06/2021. His headache was better until February 2023 when he had middle meningeal artery embolization secondary to subdural hematoma. He had bilateral middle meningeal artery embolization in 02/2023 at [facility]. He started to have headache. He has been having daily headache 24/12 since the procedure. The headache affected temporal regions. described the headache as aching pain 2-3 up to 7-8/10 in severity. It was associated with no nausea, but photophobia and phonophobia. Coughing. Strengthing during bowel movement and bending body down made the headache much worse for a few seconds. The headache was preceded by no aura. He stopped Topamax at some point and restarted Topamax 25 mg b.i.d. since his headache was worse. He has been on topamax 50 mg bid in last two days and was on 25 mg bid before that. No history of asthma, chest pain or kidney stone. Subdural hematoma: Patient had mechanical fall in June 2022 and was initially evaluated at [facility] were he was found tohave acute on chronic subdural hematoma. He was transferred to [facility] on 07/01/2022. He was discharged on 07/03/2022 with Keppra 500 mg b.i.d.. Past Medical History: Diagnosis Date Allergic rhinitis [...] OTHER MEDICAL hemorroids; Comments: [facility] [place] HX OTHER MEDICAL bladder infection HX OTHER MEDICAL kidney stone Low back pain Migraine Rheumatoid arthritis (HCC) Allergies Allergen Reactions Perfume Swelling, Cough and Shortness of breath Mold Unknown Augmentin [Amoxicillin-Pot Clavulanate] Dizziness Cat Dander Eye irritation Hydrocodone Itching Vicodin [Hydrocodone-Acetaminophen] Itching Current Outpatient Medications Medication Sig Dispense Refill finasteride (PROSCAR) 5 mg tablet Take 1 tablet (5 mg total) by mouth painter apprentice before breakfast guaiFENesin-codeine (GUAITUSS AC) liquid 100-10 mg/5 mL Take 10 mL by mouth 2 (two) times a day multivitamin capsule Take 1 capsule by mouth every morning omeprazole (PriLOSEC) 40 mg capsule Take 1 capsule (40 mg total) by mouth every morning topiramate (TOPAMAX) 25 mg tablet Take 2 tablets (50 mg total) by mouth daily UNABLE TO FIND Take 1 each by mouth nightly as needed THC gummie-25mg vit A/vit C/vit E/zinc/copper (PRESERVISION AREDS ORAL) Take 1 capsule by mouth 2 (two) times a day diphenhydrAMINE 25 mg capsule Take 1 tablet/capsule (25 mg total) by mouth every 6 (six) hours as needed for itching (Patient not taking: Reported on 08/16/2023) rizatriptan LIQUEFACTION PLANT OPERATOR (MAXALT-LIQUEFACTION PLANT OPERATOR) 10 mg disintegrating tablet Take 1 tablet (10 mg total) by mouth every2 (two) hours as needed for migraine May repeat in 2 hours if unresolved. Do not exceed 30 mg in 24hours. 9 tablet 3 No current facility-administered medications for this visit. has a current medication list which includes the following prescription(s): finasteride, guaifenesin-codeine, multivitamin, omeprazole, topiramate, UNABLE TO FIND, vit a/vit c/vit e/zinc/copper, diphenhydramine, and rizatriptan manager grant. Family History Adopted: Yes Problem Relation Age of Onset Other Other adopted Other Other adopted Anesthesia problems Neg Hx Social History Socioeconomic History Marital status: Spouse name: Not on file Number of children: Not on file Years of education: Not on file Highest education level: Not on file Occupational History Occupation: [employer] Tobacco Use Smoking status: Former Smoker Packs/day: 1.50 Years: 30.00 Pack years: 45.00 Types: Cigarettes Start date: 1958 Quit date: 1995 Years since quittin. Smokeless tobacco: Never Used Vaping Use Vaping Use: Never used Substance and Sexual Activity Alcohol use: Yes Alcohol/week: 3.0 standard drinks Types: 3 Standard drinks or equivalent per week Drug use: Yes Types: Medical marijuana Sexual activity: Defer Other Topics Concern ADL RESPONSE ADL RESPONSE ADL RESPONSE Yes Comment: 8 cups coffee soda /day ADL RESPONSE ADL RESPONSE ADL RESPONSE ADL RESPONSE ADL RESPONSE ADL RESPONSE ADL RESPONSE ADL RESPONSE ADL RESPONSE ADL RESPONSE ADL RESPONSE Social History Narrative Not on file Social Determinants of Health Financial Resource Strain: Not on file Food Insecurity: Not on file Transportation Needs: Not on file Physical Activity: Not on file Stress: Not on file Social Connections: Not on file Intimate Partner Violence: Not on file Housing Stability: Not on file BP 128/75 (BP Location: Right arm, Patient Position: Sitting) Pulse 74 Resp 18 Ht 182.9 cm (6') Wt 98 kg (216 lb) SpO2 97% BMI 29.29 kg/m?? Physical Exam Mental status: alert, speech fluent, comprehension intact, follow command appropriately Cranial nerve: ALBERTO, corneal reflex present. EOMI, VFF by confrontation method. Facial sensations symmetrical. Face symmetrical. Motor: bulk normal, tone normal, pronator drift negative. Strength 5/5. No abnormal movement. Sensation: LT Normal and symmetrical. Gait: normal Assessment/Plan I am seeing this 76 y.o. male who is here for follow-up of headache and subdural hematoma. 1. Headache: The history is suggestive of chronic migraine headache. Headache is worse since middlemeningeal artery embolization in February 2023. 2. Subdural hematoma: Status post middle meningeal artery embolization in February 2023. Stable. Diagnoses and all orders for this visit: Chronic migraine without aura without status migrainosus, not intractable (Primary) - rizatriptan LIQUEFACTION PLANT OPERATOR (MAXALT-LIQUEFACTION PLANT OPERATOR) 10 mg disintegrating tablet; Take 1 tablet (10 mg total) by mouth every 2 (two) hours as needed for migraine May repeat in 2 hours if unresolved. Do not exceed 30 mg in24 hours. - continue Topamax 50 mg b.i.d. (the dose started about 2 days ago) SDH (subdural hematoma) (HCC) - Stable. Observe. Past investigations: 1. 06/30/2019 CT of head without: No acute intracranial process. I reviewed image. 2. 11/29/2020 CMP normal. New test review: 3. 07/01/2022 CT of head without: Left cerebral convexity subdural hematoma up to 7 mm. No significant midline shift. I reviewed image. 4. 07/09/2023 CT of head without: Nearly resolved right and decreased left subdural hematoma. No interval acute intracranial process. Return in about 3 months (around 11/16/2023). documented in this encounter Plan of Treatment [...] on stairs Contact your local community or [facility] for information on exercise, fall prevention programs, or options for improving home safety. documented as of this encounter Visit Diagnoses Diagnosis Chronic migraine without aura without status migrainosus, not intractable- Primary Cerebral infarction, unspecified mechanism (HCC) SDH (subdural hematoma) (HCC) Subdural hemorrhage documented in this encounter Orders Outpatient Referral Count Last Ordered Date Fir st Ordered Date AMB REFERRAL TO NEUROLOGY 1 08/16/2023 documented in this encounter Care Teams Armature Inspector Relationship Specialty Start Date End Date Grey Tomas MD PCP - General Family Practice 07/27/22 [place] [address] [facility] [address] [place] [address] Rheumatology 02/21/17 Lashay Downs, RN Registered Nurse Pain Management 06/17/17 Duke Do, RN Registered Nurse 09/09/17 Ngozi Petty MD Radiation Oncologist Radiation Oncology 02/05/19 Jose Roberto Marx MD Referring Physician Otolaryngology 02/05/19 documented as of this encounter
--- OUTSIDE RECORDS SUMMARY | 2024-06-14 16:46 | XMS_ITS | Encounter Summary ---
Author Organization [facility] Address [address] [place] [address] Phone Care Team Providers Care Airveyor Operator Name Role Phone Criss Blanco MD Unavailable Lashay Downs RN Unavailable Unavailab Duke Goodwin RN Unavailable UnavailNgozi Husain MD Unavailable [phone] Jose Roberto Marx MD Unavailable [phone] Grey Tomas MD Primary Care Provider [phone] Reason for Visit * Reason Comments voice follow up Encounter Details Date Type Department Care Team (Late st Contact Info) Description 02/27/2023 4:00 PM CDT Office Visit 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 [...] reports no changes in his voice. No pain in his throat or ear pain. No difficulty swallowing or breathing. He was recently at [facility] for a subdural hematoma. 02/06/[address] Grubbs reviewed EXAM: There were no vitals taken for [...] I will see him again in 6 weeks-8 weeks. DISPOSITION: 6-8 weeks Dariana Herrera MD Fish Skinning Machine Feeder [facility] Division of Laryngology [...] on stairs Contact your local community or [facility] for information on exercise, fall prevention programs, or options for improving home safety. documented as of this encounter Visit Diagnoses Diagnosis Dysplasia of larynx- Primary documented in this encounter Care Teams Airveyor Operator Relationship Specialty Start Date End Date Grey Tomas MD PCP - General Family Practice 07/27/22 [place] [address] [place] [address] Rheumatology 02/21/17 Lashay Downs, RN Registered Nurse Pain Management 06/17/17 Duke Do, RN Registered Nurse 09/09/17 Ngozi Petty MD Radiation Oncologist Radiation Oncology 02/05/19 Jose Roberto Marx MD Referring Physician Otolaryngology 02/05/19 documented as of this encounter
--- OUTSIDE RECORDS SUMMARY | 2024-06-14 16:46 | XMS_ITS | Encounter Summary ---
Author Organization [facility] Healthcare Address [address] [place] [address] Care Team Providers Care Job Press Operator Name Role Phone Criss Blanco MD Unavailable Lashay Downs RN Unavailable Unavailab Duke Goodwin RN Unavailable UnavailNgozi Husain MD Unavailable [phone] Jose Roberto Marx MD Unavailable [phone] Grey Tomas MD Primary Care Provider [phone] Reason for Referral * Procedure (Routine) - Closed Specialty Diagnoses / Procedures Referred By Contac t Referred To Contact Diagnoses Cough, unspecified type Procedures Pulmonary Function Test -[facility]; Complete/Full (Spirometry, Pleth and DLCO) Carlos Perez MD [address] [place] [address] DR THAKUR [address] [place] [address] Phone: tel: fax: Referral ID Status Reason Start Date Expiration Date Visits Re quested Visits Authorized [id number] Closed 09/24/2023 10/23/2024 1 1 Reason for Visit * Procedure (Routine) - Closed Specialty Diagnoses / Procedures Referred By Contac t Referred To Contact Diagnoses Cough, unspecified type Procedures Pulmonary Function Test -[facility]; Complete/Full (Spirometry, Pleth and DLCO) Carlos Perez MD [address] [place] [address] DR THAKUR [address] [place] [address] Phone: tel: fax: Referral ID Status Reason Start Date Expiration Date Visits Re quested Visits Authorized [id number] Closed 09/24/2023 10/23/2024 1 1 Encounter Details Date Type Department Care Team (Latest Contact Info) Description 10/02/2023 8:20 AM CDT - 10/02/2023 11:59 PM CDT Hospital Encounter [facility] Respiratory [address] [place] [address] Cough, unspecified type Discharge Disposition: Discharge to home or self care Social History Tobacco Use Types Packs/Day Years Used Date Smoking Tobacco: Former Cigarettes 1.5 37 1 959 - 8470 Smokeless Tobacco: Never Alcohol Use Standard Drinks/Week [...] on file 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 Gender Identity Not on file Sexual Orientation [...] 1 tablet (5 mg total) by mouth dental ceramist helper before breakfast multivitamin capsuleIndications:V itamin Deficiency Prevention [...] (two) times a day 07/24/2023 4 rizatriptan BOW MAKER [employer]ODUCTION (MAXALT-BOW MAKER [employer]ODUCTION) 10 mg disintegrating tabletIndications:Mi graine Take 1 [...] Procedure Name Priority Date/Time Associated Diagnosis Comments PULMONARY FUNCTION TEST (PFT) Routine 10/02/2023 9:15 AM CDT Cough, unspecified type documented in this encounter Results * Pulmonary Function Test -[facility]; Complete/Full (Spirometry, Pleth and DLCO) (10/02/2023 [...] type documented in this encounter Care Teams Job Press Operator Relationship Specialty Start Date End Date Grey Tomas MD PCP - General Family Practice 07/27/22 [place] [address] [address] Rheumatology 02/21/17 Lashay Downs, GAY Registered Nurse Pain Management 06/17/17 Duke Do, RN Registered Nurse 09/09/17 Ngozi Petty MD Radiation Oncologist Radiation Oncology 02/05/19 Jose Roberto Marx MD Referring Physician Otolaryngology 02/05/19 documented as of this encounter
--- OUTSIDE RECORDS SUMMARY | 2024-06-14 16:46 | XMS_ITS | Encounter Summary ---
Author Organization [facility] Address [address] [place] [address] Phone Care Team Providers Care Distribution Supervisor Name Role Phone Criss Blanco MD Unavailable Lashay Downs RN Unavailable Unavailab Duke Goodwin RN Unavailable UnavailNgozi Husain MD Unavailable [phone] Jose Roberto Marx MD Unavailable [phone] Grey Tomas MD Primary Care Provider [phone] Reason for Referral * MRI/CAT/PET Scan (Routine) - Closed Specialty Diagnoses / Procedures Referred By Conthermila t Referred To Contact Radiology Diagnoses Subdural hematoma (HCC) Procedures CT Head WO Contrast Aston Grubbs MD [address] [place] [address] Phone: tel: fax: [address] [address] Referral ID Status Reason Start Date Expiration Date Visits Re quested Visits Authorized [id number] Closed 02/08/2023 03/09/2024 1 1 Encounter Details Date Type Department Care Team (Late st Contact Info) Description 02/08/2023 Orders Only [facility] Neurosurgery [address] [facility] 6th [place] [address] [place] [address] Aston Grubbs MD [address] [place] [address] Subdural hematoma (HCC) (Primary Dx) Social History [...] on file 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 ??Mild interval decrease in size of left convexity subacute subdural hematoma 2. ??No significant change in right size of right convexity subdural hematoma Dictated by: Saman Olvera MD The radiology attending physician has personally reviewed this study, and had reviewed and/or edited this written report and agrees with it. Electronically signed by: Waqas Ashraf MD, PHD Narrative 03/07/2023 9:38 PM CDT EXAMINATION: CT head without contrast HISTORY: Subdural hematoma follow-up TECHNIQUE: CT of the head was performed with images acquired from skull base to vertex without intravenous contrast. COMPARISON: CT 01/17/2023 FINDINGS: The slight interval decrease in size of left frontal convexity mixed attenuation subdural hematoma now measuring up to 6 mm in thickness, previously 8 mm. ??Right convexity subdural hematoma now measures 3 mm, previously 4 mm. Topogram demonstrates no lytic lesions or fractures. There is no acute intracranial hemorrhage. Ventricles are of normal size and morphology. No mass effect or midline shift is present. The chacko-white matter differentiation is normal. The visualized portions of the orbits are normal. The visualized portions of the mastoids are normal. The visualized portions of the paranasal sinuses are normal. No fractures are identified. ??Intracranial calcified atherosclerotic disease including along the A2 segments of both anterior cerebral arteries. Procedure Note Waqas Ashraf MD PhD - 03/07/2023 EXAMINATION: CT head without contrast HISTORY: Subdural hematoma follow-up TECHNIQUE: CT of the head was performed with images acquired from skull base to vertex without intravenous contrast. COMPARISON: CT 01/17/2023 FINDINGS: The slight interval decrease in size of left frontal convexity mixed attenuation subdural hematoma now measuring up to 6 mm in thickness, previously 8 mm. Right convexity subdural hematoma now measures 3 mm, previously 4 mm. Topogram demonstrates no lytic lesions or fractures. There is no acute intracranial hemorrhage. Ventricles are of normal size and morphology. No mass effect or midline shift is present. The chacko-white matter differentiation is normal. The visualized portions of the orbits are normal. The visualized portions of the mastoids are normal. The visualized portions of the paranasal sinuses are normal. No fractures are identified. Intracranial calcified atherosclerotic disease including along the A2 segments of both anterior cerebral arteries. IMPRESSION: 1. Mild interval decrease in size of left convexity subacute subdural hematoma 2. No significant change in right size of right convexity subdural hematoma Dictated by: Saman Olvera MD The radiology attending physician has personally reviewed this study, and had reviewed and/or edited this written report and agrees with it. Electronically signed by: Waqas Ashraf MD, PHD Aston Jailene Grubbs MD IMG CT PROCEDURES Mariaa l Result documented in this encounter Visit Diagnoses Diagnosis Subdural hematoma (HCC)- Primary Subdural hemorrhage Subdural hematoma (HCC) Subdural hemorrhage documented in this encounter Care Teams Distribution Supervisor Relationship Specialty Start Date End Date Grey Tomas MD PCP - General Family Practice 07/27/22 [place] [address] [facility] [address] [place] [address] Rheumatology 02/21/17 Lashay Downs, RN Registered Nurse Pain Management 06/17/17 Duke Do, RN Registered Nurse 09/09/17 Ngozi Petty MD Radiation Oncologist Radiation Oncology 02/05/19 Jose Roberto Marx MD Referring Physician Otolaryngology 02/05/19 documented as of this encounter
--- OUTSIDE RECORDS SUMMARY | 2024-06-14 16:46 | XMS_ITS | Encounter Summary ---
Author Organization [facility] Healthcare Address [address] [place] [address] Care Team Providers Care Regional Climate Change Analyst Name Role Phone Criss Blanco MD Unavailable Lashay Downs RN Unavailable Unavailab Duke Goodwin RN Unavailable UnavailNgozi Husain MD Unavailable [phone] Jose Roberto Marx MD Unavailable [phone] Grey Tomas MD Primary Care Provider [phone] Reason for Referral * MRI/CAT/PET Scan (Routine) - Closed Specialty Diagnoses / Procedures Referred By Alcira forrest Referred To Contact Radiology Diagnoses Subdural hematoma (HCC) Procedures CT Head WO Contrast Aston Grubbs MD [address] [facility] [address] [place] [address] Phone: tel: fax: [address] [address] Referral ID Status Reason Start Date Expiration Date Visits Re quested Visits Authorized [id number] Closed 02/08/2023 03/09/2024 1 1 Reason for Visit * MRI/CAT/PET Scan (Routine) - Closed Specialty Diagnoses / Procedures Referred By Alcira forrest Referred To Contact Radiology Diagnoses Subdural hematoma (HCC) Procedures CT Head WO Contrast VelAston woodson MD [address] [place] [address] Phone: tel: fax: [facility] [address] [facility] [place] [address] Referral ID Status Reason Start Date Expiration Date Visits Re quested Visits Authorized [id number] Closed 02/08/2023 03/09/2024 1 1 Encounter Details Date Type Department Care Team (Latest Contact Info) Description 03/07/2023 8:15 AM CDT - 03/07/2023 11:59 PM CDT Hospital Encounter [facility] [address] [place] [address] Aston Grubbs MD [address] [place] [address] Subdural hematoma (HCC) Discharge Disposition: Discharge to [...] on file 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 Gender Identity Not on file Sexual Orientation Not on file Occupation Industry Job Start Date Job End Date Retired Not on file Not on file Not on file documented as of this encounter Medications at Time of Discharge finasteride (PROSCAR) 5 mg tabletIndications :benign prostatic hyperplasia with lower urinary tract sx Take 1 tablet (5 mg total) by mouth early childhood associate teacher before breakfast multivitamin capsuleIndication s:Vitamin Deficiency Prevention [...] on stairs Contact your local community or [facility] for information on exercise, fall prevention programs, or options for improving home safety. documented as of this encounter Procedures Procedure Name Priority Date/Time Associated Diagnosis Comments CT HEAD WO CONTRAST Schedule Routine, Read Routine (OP Routine) 03/07/2023 8:56 AM CDT Subdural hematoma (HCC) documented in this [...] signed by: Waqas Ashraf MD, PHD Aston Grubbs MD IMG CT PROCEDURES Mariaa l Result documented in this encounter Visit Diagnoses Diagnosis Subdural hematoma (HCC) Subdural hemorrhage documented in this encounter Care Teams Regional Climate Change Analyst Relationship Specialty Start Date End Date Grey Tomas MD PCP - General Family Practice 07/27/22 [place] [address] [facility] [address] [place] [address] Rheumatology 02/21/17 Lashay Downs, RN Registered Nurse Pain Management 06/17/17 Duke Do, RN Registered Nurse 09/09/17 Ngozi Petty MD Radiation Oncologist Radiation Oncology 02/05/19 Jose Roberto Marx MD Referring Physician Otolaryngology 02/05/19 documented as of this encounter
--- OUTSIDE RECORDS SUMMARY | 2024-06-14 16:47 | XMS_ITS | Encounter Summary ---
Author Organization [facility] Address [address] [place] [address] Phone Care Team Providers Care Ballast Cleaning Operator Name Role Phone Criss Blanco MD Unavailable Lashay Downs RN Unavailable Unavailab Duke Goodwin RN Unavailable UnavailNgozi Husain MD Unavailable [phone] Jose Roberto Marx MD Unavailable [phone] Grey Tomas MD Primary Care Provider [phone] Reason for Visit * Reason Comments voice issues * Consultation (Routine) - Closed Specialty Diagnoses / Procedures Referred By Contac t Referred To Contact Otolaryngology Diagnoses 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) Viraj Romeo, PA [address] [place] [address] Phone: tel: fax: [facility] (All Locations) Referral ID Status Reason Start Date Expiration Date V isits Requested Visits Authorized [id number] Closed Specialty Services Required 03/20/2022 06/02/2023 12 12 Encounter Details Date Type Department Care Team (Late st Contact Info) Description 09/19/2022 10:20 AM CDT Office Visit [facility] ENT [address] [facility] [address] [place] [address] Nakita Herrera MD [address] [place] [address] Carcinoma in situ of larynx (Primary Dx) Social History Tobacco Use Types Packs/Day Years Used Date Smoking Tobacco: Former Cigarettes 1.5 37 1 9 - 1995 Smokeless Tobacco: Never Alcohol Use [...] on file 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 HISTORY OF PRESENT ILLNESS: Samuel Sanchez is a 77 y.o. male who presents today for surveillance of his vocal folds. 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 This was treated with surgical resection in 2018. Since that time, he has been doing well. He was last seen in September of 2021. Last surgery in October 2020; high grade dysplasia. He had an exophytic lesion noted upon his last visit and he underwent MDL with excision and KTP laser treatment (05/01/22). Pathology consistent with CIS.He then underwent repeat KTP excision and treatment on (05/07/22) without evidence of invasion or dysplasia. Today he reports no changes in his voice. No difficulty swallowing, pain when swallowing, ear pain,or trouble breathing. He has some macular degeneration and he is going to get examined soon; they feel slightly off. EXAM: There were no vitals taken for [...] bilaterally mobile On Stroboscopy: Mucosa: Well-healed, no obvious leukoplakia Mucosal Wave: Reduced on the right Glottic Closure: Slit-like gap Description of Procedure: The procedure was explained [...] of CIS in the same area (2021). I will see him again in 6 weeks. DISPOSITION:6 weeks Dariana Herrera MD Handyperson [facility] Division of Laryngology [...] on stairs Contact your local community or [facility] for information on exercise, fall prevention programs, or options for improving home safety. documented as of this encounter Visit Diagnoses Diagnosis Carcinoma in situ of larynx- Primary documented in this encounter Care Teams Ballast Cleaning Operator Relationship Specialty Start Date End Date Grey Tomas MD PCP - General Family Practice 07/27/22 [place] [address] [facility] [address] [place] [address] Rheumatology 02/21/17 Lashay Downs, GAY Registered Nurse Pain Management 06/17/17 Duke Do, GAY Registered Nurse 09/09/17 Ngozi Petty MD Radiation Oncologist Radiation Oncology 02/05/19 Jose Roberto Marx MD Referring Physician Otolaryngology 02/05/19 documented as of this encounter
--- OUTSIDE RECORDS SUMMARY | 2024-06-14 16:47 | XMS_ITS | Encounter Summary ---
Author Organization [facility] Healthcare Address [address] [place] [address] Care Team Providers Care [employer]cher[employer] Superintendent Name Role Phone Criss Blanco MD Unavailable Lashay Downs RN Unavailable Unavailab Duke Goodwin RN Unavailable UnavailNgozi Husain MD Unavailable [phone] Jose Roberto Marx MD Unavailable [phone] Reason for Visit * Reason Comments Fall * Auth/Cert Specialty Diagnoses / Procedures Referred By Contac t Referred To Contact Diagnoses SDH (subdural hematoma) (HCC) SUBDURAL BLEED Procedures na Referral ID Status Reason Start Date Expiration Date Visits Re quested Visits Authorized [id number] 1 1 Encounter Details Date Type Department Care Team (Latest Contact Info) Description 07/01/2022 12:47 PM MOBILE EQUIPMENT OPERATOR - 07/03/2022 10:39 AM MOBILE EQUIPMENT OPERATOR Hospital Encounter [facility] [address] [place] [address] Kike Forrester MD [address] [place] [address] Terrance Blancas MD [address] [place] [address] Albina Carrillo MD [address] [place] [address] SDH (subdural hematoma) (Primary Dx); Diagnosis unknown; Frail elderly Discharge Disposition: Discharge to home or self [...] containing alc ohol? 2-3 times a week 05/01/2022 Q2: How many drinks containi ng alcohol do you have on a typical day when you are drinking? 1 or 2 05/01/2022 Q3: How often do you have si x or more drinks on one occasion? 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 on file Not on natalie e documented as of this encounter Last Filed Vital Signs Vital Sign Reading Time Taken Comments Blood Pressure 123/79 07/03/2022 8:10 AM MOBILE EQUIPMENT OPERATOR Pulse 61 07/03/2022 8:10 AM MOBILE EQUIPMENT OPERATOR Temperature 36.9 ??C (98.4 ??F) 07/03/2022 8:10 AM CS T Respiratory Rate 16 07/03/2022 8:10 AM MOBILE EQUIPMENT OPERATOR Oxygen Saturation 100% 07/03/2022 8:10 AM MOBILE EQUIPMENT OPERATOR Inhaled Oxygen Concentration - - Weight 97.5 kg (215 lb) 07/01/2022 11:15 PM MOBILE EQUIPMENT OPERATOR Height 185.4 cm (6' 1 ) 07/01/2022 11:15 PM MOBILE EQUIPMENT OPERATOR Body Mass Index 28.37 07/01/2022 11:15 PM MOBILE EQUIPMENT OPERATOR documented in this encounter Discharge Summaries * Luli Michel NP - 07/03/2022 8:59 AM CST [facility] Geriatric Trauma Surgery Inpatient Discharge Summary This is a clinical resume for patient Samuel Sanchez for attending Terrance Blancas MD Admission Date: 07/01/2022 Admitting Provider: Albina Carrillo MD Discharge Date: 07/03/2022 Hospitalization: Total duration of encounter: 2 days Team: Geriatric Trauma Surgery Primary Care Provider: Fawn Romeo PA Discharge Diagnosis(es): Principal Problem: SDH (subdural hematoma) Resolved Problems: No resolved hospital problems. Hospital Course: Clinical Course: improved History of Present Illness: Samuel Sanchez is a 77 y.o. male not on anticoagulation with past medical history of laryngeal cancer, rheumatoid arthritis on methotrexate, GERD, chronic rhinitis, RLS, and BPH who presents after mechanical ground level fall was found to have a thin left chronic subdural hematoma with 2 mm of midline shift. Briefly, the patient had a mechanical ground level fall when he slipped on ice earlier today and hit his head. He presented to an outside hospital where workup included a noncontrast head CT which demonstrated a thin chronic appearing left- sided subdural hematoma with minimal midline shift. The patient was subsequently transferred to [facility] for neurosurgical evaluation and management. The patient complains of mild headache which he rates at 2/10. He denies any lossof consciousness. No new numbness, tingling, or weakness in his arms or legs. No changes in his vision. No nausea or vomiting. Repeat Head CT completed in the ED was stable. The patient was admitted to the geriatric trauma service floor for continued management of his acute injuries and chronic cond itions. Active Issues Requiring Follow Up: #L SDH - NSGY consulted - rHCT in ED: Stable left cerebral convexity subdural hematoma without significant midline shift - neuro-checks monitored - keppra 500 BID x7 days - BI consult - PT home; OT home - PM&R consult - An outpatient MMA embolization was also recommended to the patient - Follow up in the Neurosurgery clinic in 4 weeks with a non-contrast head CT prior to the appointment. Appointment scheduling [phone], after-hours emergency [phone] or #chronic rhinitis - flonase spray daily - zyrtec daily - singulair daily #RA - continued home methotrexate #RLS - continued home requip Dispo: home Operative Procedures Performed: Procedure name not found. Microlaryngoscopy With Biopsy/excision Lesion and Laser Ktp Consultations: Neurosurgery Discharge Physical Exam: Discharge Condition: good Pulse: 61 Resp: 16 BP: 123/79 Temp: 36.9 ??C (98.4 ??F) Weight: 97.5 kg (215 lb) GENERAL- no acute distress, comfortable NEURO- alert and oriented x4, speech fluent and clear; demonstrated purposeful movement in all extremities; follows commands PSYCH- Mood and affect appropriate HEENT- Pupils equal, EOMs grossly normal, mucous membranes moist LYMPHATICS- no palpable lymphadenopathy CARDIO- regular rate RESP- nonlabored respirations, chest excursion equal bilaterally GI- abdomen soft, nontender, nondistended MSK- grossly normal range of motion EXTREMITIES- extremities warm and dry, no swelling INTEGUMENT- no rashes Diet: Diet Instructions Adult Discharge Diet Diet Type: Return to previous diet Discharge Disposition: Discharge to home or self care Code Status at Discharge: Full Activity: Activity Instructions Discharge Activity: -Continue to follow restrictions and exercises as instructed by physical and occupational therapy. Discharge Activity: Driving restrictions -Do not drive for 2 weeks or while taking pain medications. Discharge Activity: Lifting restrictions -Do NOT lift greater than 10 pounds for 2 weeks. Discharge Activity: Walking -You may walk as tolerated. Patient may shower Weight bearing status Restrictions RUE: Weight Bearing as Tolerated Restrictions LUE: Weight Bearing as Tolerated Restrictions RLE: Weight Bearing as Tolerated Restrictions LLE: Weight Bearing as Tolerated activity as tolerated and no driving for 2 weeks Right Upper ExtremityWeight bearing as tolerated Left Upper ExtremityWeight bearing as tolerated Right Lower ExtremityWeight bearing as tolerated Left Lower ExtremityWeight bearing as tolerated Wound Care: Able to bathe self, groom none needed none Discharge Medications: Your medication list START taking these medications acetaminophen 325 mg tablet 650 mg, oral, Every 6 hours PRN Commonly known as: TYLENOL levETIRAcetam 500 mg tablet 500 mg, oral, 2 times daily Commonly known as: KEPPRA senna-docusate 8.6-50 mg 1 tablet, oral, 2 times daily Commonly known as: PERICOLACE CONTINUE taking these medications cetirizine 10 mg tablet 10 mg, oral, Daily (early AM) Commonly known as: ZyrTEC famotidine 40 mg tablet 40 mg, oral, Nightly Commonly known as: PEPCID finasteride 5 mg tablet 5 mg, oral, Daily (early AM) Commonly known as: PROSCAR fluticasone propionate 50 mcg/actuation nasal spray 1 spray, each nostril, Daily (early AM) Commonly known as: FLONASE folic acid 1 mg tablet 1 mg, oral, Daily (early AM) Commonly known as: FOLVITE methotrexate 2.5 mg tablet 6 tablets, oral, Weekly, saturday montelukast 10 mg tablet 10 mg, oral, Nightly Commonly known as: SINGULAIR multivitamin capsule 1 capsule, oral, Every morning omeprazole 20 mg capsule 40 mg, oral, Daily (early AM) Commonly known as: PriLOSEC oxyCODONE 5 mg immediate release tablet 5 mg, oral, Every 4 hours PRN Commonly known as: ROXICODONE PRESERVISION AREDS ORAL 1 capsule, oral, 2 times daily rOPINIRole 1 mg tablet 1 mg, oral, Nightly Commonly known as: REQUIP UNABLE TO FIND 1 each, oral, Nightly PRN, THC gummie-25mg Discharge Instructions: Other Instructions Call provider for: increased temperature -Temperature greater than 101 degrees F Call provider for: nausea, vomiting, diarrhea -If you have persistent nausea, vomiting or diarrhea that does not stop Call provider for: severe uncontrolled pain Call provider for: any other concerns or questions - Please contact the Neurosurgery clinic at [phone] for questions, concerns, or appointments. - Please contact the Trauma Department if any problems develop, please call the Trauma office [phone]. Please be aware all medications including narcotic pain medications cannot be called in over the phone. To refill, an appointment will need to be made with the appropriate medical or surgicalservice. You may follow up with your primary care physician for long-term management of medicationsand long-term medical conditions. Call provider if: you feel dizzy, very tired or like you may faint Care Instructions: Incentive Spirometer - Continue to use your incentive spirometer Care Instructions: No tub baths -No tub baths, whirlpools or swimming until your provider says it's ok. Care Instructions: Shower -You may shower daily. Special Instructions - You will take levetiracetam (Keppra) by mouth twice daily for prevention of seizures. Make sure you take all of the medication provided to you. Call your Surgeon???s office from 8:00am-3:30pm at for the following: * You have a fever of more than 101.5 degrees. * You have nausea, vomiting or diarrhea that does not stop. * You have pus or bad smelling drainage from your wound. * The pain in your stomach is very bad or gets a lot worse. * You feel dizzy, very tired or like you may faint. * You have hard time breathing. * You have any other concerns or questions Follow up Contact Information for Follow-ups Fawn Romeo PA Specialty: Family Practice, Family Medicine Relationship: PCP - General [facility] [address] [facility] [address] Next Steps: Follow up Instructions: Follow up with your primary care physician in 2 to 4 weeks for medication review and hospital follow-up. Questions: To provider: FAWN ROMEO Instructions for follow-up (appointment date and time): Follow up with your primary care physician in 2 to 4 weeks for medication review and hospital follow-up. [facility] Neurosurgery Specialty: Neurosurgery [facility] [facility] 6th [address] [facility] [address] Next Steps: Follow up Instructions: Follow up with Neurosurgery in 4 weeks with a repeat head CT prior to your appointment. Please call [phone] to confirm your appointment. Questions: Instructions for follow-up (appointment date and time): Follow up with Neurosurgery in 4 weeks witha repeat head CT prior to your appointment. Please call [phone] to confirm your appointment. External Order Next Steps: Follow up Questions: Reason for Referral: PT Evaluate and Treat Therapy options discussed with patient?: Yes Location provided for therapy services is: Patient requested/Patient preferred Reason for Visit: subdural hematoma Please select the performing region: External Order Referral Status: External - Ready to Schedule External Order Next Steps: Follow up Questions: Reason for Referral: OT Evaluate and Treat Therapy options discussed with patient?: Yes Location provided for therapy services is: Patient requested/Patient preferred Reason for Visit: subdural hematoma Please select the performing region: External Order Referral Status: External - Ready to Schedule Future Appointments Date Time Provider Department Center 07/13/2022 11:15 AM Uriah Calix NP [facility] [address] [facility] Specialty 08/08/2022 1:00 PM [id number] 08/08/2022 2:00 PM Nakita Herrera MD [facility] CLN L20 OY 08/08/2022 3:00 PM Baldo Bailey PA SP[facility] [id number] I spent 30 minutes completing this hospital discharge. Zelda Wilkinson NP 07/03/22 CC: Fawn Romeo PA Cosigned by Jessica Raymond MD at 07/04/2022 8:58 AM MOBILE EQUIPMENT OPERATOR LE EQUIPMENT OPERATOR LE EQUIPMENT OPERATOR Associated attestation - Jessica Raymond MD - 07/04/2022 8:58 AM MOBILE EQUIPMENT OPERATOR I have seen and examined the patient on the day of discharge. I agree with the findings and plan ofcare as discussed with the AVIATION ELECTRONIC WARFARE OPERATOR/PA. Jessica Raymond MD Acute and Critical Care Surgery [facility] documented in this encounter Discharge Instructions * Attachments The following attachments cannot be sent through Care Everywhere. * Subdural Hematoma (Discharge Care) (Japanese) documented in this encounter Medications at Time of Discharge finasteride (PROSCAR) 5 mg tabletIndications :benign prostatic hyperplasia with lower urinary tract sx Take 1 tablet (5 mg total) by mouth distance learning unit leader before breakfast multivitamin capsuleIndication s:Vitamin Deficiency Prevention Take 1 capsule by mouth every morning vit A/vit C/vit E/zinc/copper (PRESERVISION AREDS ORAL) Take 1 capsule by mouth 2 (two) times a day acetaminophen (TYLENOL) 325 mg tabletIndications :Pain Take 2 tablets (650 mg total) by mouth every 6 (six) hours as needed for pain 31 tablet 07/03/2022 cetirizine (ZyrTEC) 10 mg tablet Take 10 mg by mouth distance learning unit leader before breakfast 3 famotidine (PEPCID) 40 mg tablet Take 1 tablet (40 mg total) by mouth nightly 03/28/2020 3 fluticasone propionate (FLONASE) 50 mcg/actuation nasal spray Administer 1 spray into each nostril distance learning unit leader before breakfast 04/12/2022 3 folic acid (FOLVITE) 1 mg tablet Take 1 tablet (1 mg total) by mouth distance learning unit leader before breakfast 3 levETIRAcetam (KEPPRA) 500 mg tablet Take 1 tablet (500 mg total) by mouth 2 (two) times a day for 11 doses 11 tablet 07/03/2022 3 methotrexate 2.5 mg tablet Take 6 tablets (15 mg total) by mouth once a week saturday02/02/2020 3 montelukast (SINGULAIR) 10 mg tablet Take 10 mg by mouth nightly 04/12/2022 3 omeprazole (PriLOSEC) 20 mg capsule Take 2 capsules (40 mg total) by mouth distance learning unit leader before breakfast 3 oxyCODONE (ROXICODONE) 5 mg immediate release tablet Take 1 tablet (5 mg total) by mouth every 4 (four) hours as needed for pain 7 tablet 05/07/2022 3 rOPINIRole (REQUIP) 1 mg tablet Take 2 tablets (2 mg total) by mouth nightly 3 senna-docusate (PERICOLACE) 8.6-50 mg Take 1 tablet by mouth 2 (two) times a day 20 tablet 07/03/2022 3 UNABLE TO FIND Take 1 each by mouth nightly as needed THC gummie-25mg 4 documented as of this encounter Ordered Prescriptions Prescription Sig Dispense Quantity Refills Last Filled Start Date End Date acetaminophen (TYLENOL) 325 mg tabletIndications: Pain Take 2 tablets (650 mg total) by mouth every 6 (six) hours as needed for pain 31 tablet 07/03/2022 3 senna-docusate (PERICOLACE) 8.6-50 mg Take 1 tablet by mouth 2 (two) times a day 20 tablet 07/03/2022 3 acetaminophen (TYLENOL) 325 mg tabletIndications: Pain Take 2 tablets (650 mg total) by mouth every 6 (six) hours as needed for pain 30 tablet 07/03/2022 3 levETIRAcetam (KEPPRA) 500 mg tablet Take 1 tablet (500 mg total) by mouth 2 (two) times a day for 11 doses 11 tablet 07/03/2022 3 documented in this encounter Discharge Disposition Disposition Code Departure Means Destination Discharge to home or self care documented in this encounter Progress Notes * Radha Katz RN - 07/03/2022 10:06 AM CST 07/03/22 1006 Discharge Summary Chart reviewed For Medical Necessity Does patient have a planned readmission to hospital planned? No Discharge Disposition Private residence Equipment/Provider Needs No Home Needs Identified Discharge Additional Assistance Does the patient need discharge transport arranged? No (family) Post Discharge Care Provider Post Discharge Care Plan DC Summary has been faxed to next level of care provider (see Follow Up Providers) Per medical team, patient is medically stable for discharge at this time. . Patient and/or family are agreeable with the plan. Family to provide transport. No further CM needs at this time. LE EQUIPMENT OPERATOR * Leona Cuevas MD - 07/02/2022 9:53 PM CST Neurosurgery Consult Progress Note 07/02/2022 Subjective Interval History: 07/01 Consulted. Repeat HCT stable. Objective Physical Exam: OEv, R, FC Ox3 PERRL, EOMI, FS, TML BUE 5/5 BLE 5/5 No drift Vitals: 24hr min/max vitals: Temp Min: 36.5 ??C (97.7 ??F) Max: 36.9 ??C (98.4 ??F) Pulse Min: 60 Max: 78 Resp Min: 16 Max: 18 SpO2 Min: 95 % Max: 100 % MAP (mmHg) Min: 80 Max: 94 Labs: Lab Results Component Value Date SODIUM 143 07/01/2022 SODIUM 142 05/19/2018 SODIUM 140 04/21/2018 Lab Results Component Value Date WBC 8.5 07/01/2022 WBC 4.8 05/19/2018 WBC 7.5 04/21/2018 HGB 14.9 07/01/2022 HGB 15.6 05/19/2018 HGB 14.4 04/21/2018 LABPLAT 143 (L) 07/01/2022 LABPLAT 126 (L) 05/19/2018 LABPLAT 206 04/21/2018 Lab Results Component Value Date INR 1.1 07/01/2022 INR 1.1 06/17/2020 INR 1.01 04/21/2018 PT 11.6 07/01/2022 PT 12.4 06/17/2020 PT 11.4 04/21/2018 APTT 30 07/01/2022 APTT 31 06/17/2020 APTT 32.4 04/21/2018 Assessment/Plan Hospital Day: 2 Samuel Sanchez is a 77 y.o. year old male who was seen by the neurosurgery service for MGLF on ice. L cSDH up to 1cm with 2mm MLS. PMH: laryngeal cancer, RA on methotrexate, GERD, BPH. NO Ac. . This consult has been staffed with Dr. Martínez. Plan MMA embolization outpatient Neuro check frequency: Q4h Medical DVT prophylaxis: per primary If there are any issues or questions, please page the Neurosurgery Call pager at [phone] and ask for the resident taking care of Martínez patients. The patient should be seen in our clinic in 3-[address] scan of the brain without contrast. If they require an appointment, this appointment has been tasked by our service. Please include the appointment date in the discharge paperwork, which can be found under the Encounters tab. Please include this phone number to our clinic in the discharge instructions for the patient to confirm their appointment date and time: [facility], . Note created by Leona Cuevas MD on 07/02/2022 at 9:53 PM. Cosigned by Reece Martínez MD at 07/04/2022 10:27 PM MOBILE EQUIPMENT OPERATOR LE EQUIPMENT OPERATOR LE EQUIPMENT OPERATOR * Albina Griffin - 07/02/2022 11:00 AM CST Occupational Therapy Occupational Therapy Initial Assessment NOTE:This is a summary note for the owusu assessments completed during the evaluation session. For full details, review chart review for all flowsheets documented on by this Occupational Therapist on this date. Vital signs documented in vital signs flowsheet. Assessment Plan Plan Plan: Discharge, If this is the last note, consider this the discharge summary OT Recommendation and Plan Recommendation/Plan OT Recommendation: Home with family, Outpatient OT (home with family with IADL assistance PRN) OT Frequency during current admission: One-time visit (Discharge from this service) (0) Comments: Pt engaged in functional mobility independently. Pt was educated on compensatory strategies for decreased short term memory and on ways to improve cognition. Handout was provided and pt verbalized understanding. Pt was informed of recommendation to have assist PRN with IADLs and to follow-up with OP OT. Pt reports assist available for IADLs. OT - OK to Discharge: Yes OT Evaluation Complete: Yes General Information General Chart Reviewed: Yes Session Type: Evaluation (initial discharge) OT Received On: 07/02/22 Safe Environment: Arm Band Checked, Call Light within Reach, Patient found in Supine (pt left in bed supine) Subjective: Agreeable to Therapy Family/Caregiver Present: No Occupational Therapy-Patient Goal: pt did not state specific goals Home Living Home Living Type of Home: House Home Layout: One level, Performs ADLs on one level Bathroom Shower/Tub: Walk-in shower with threshold Bathroom Equipment: Grab bars in shower/tub, Shower chair Additional Comments: Pt is primary caregive for Prior Function Prior Function Level of [place]: Independent with ADLs, Independent with ambulation, Independent with homemaking with ambulation Lives With: Spouse Receives Help From: (choreworker; helps with cleaning, meals and taking care of his 5-6hrs/5 days a week. He has a daughter and brother 30 minutes away.) Driving: Yes ADL Assistance: Independent Instrumental ADL (IADL) Assistance: Independent Vocational/Occupation: Retired Fall within the last 6 months: Yes (one fall that is the cause of admission) Activities of Daily Living Grooming Grooming: Where assessed: Standing at sink Grooming: Level of assistance: Independent LE Dressing LE Dressing: Where assessed: Edge of bed LE Dressing: Level of assistance: Independent Toilet Transfers Toilet Transfer From: Bed Toilet Transfer Type: To and from Toilet Transfer to: Standard toilet Toilet Transfer Technique: Ambulating Toilet Transfers: Independent Pain Pain Assessment Pain Assessment: No/denies pain Cognition Cognition Arousal/Alertness: Alert Attention Span: Appears intact Memory: Decreased short term memory (0/5 delayed recall test) Orientation : Oriented X4 (person, place, time, situation) Following Commands: Follows all commands and directions without difficulty Safety Judgment: Good awareness of safety precautions Darrion Cognitive Assessment (MOCA) MOCA Version: Version 3 Visuospatial/Executive: 4 Namin Memory: Memory not scored Attention: 6 Language: 2 Abstraction: 2 Delayed Recall: 0 Orientation: 5 Education Level: Education less than or equal to 12 yrs MOCA Total Score: 23 Score Evaluation: 0-25 Impaired Trails A & B (Stanwood Making Test) Patient completed Trails A in (seconds): 45.78 Trails A # of errors: 0 Trails A score evaluation: WNL Patient completed Trails B in (seconds): 76.3 Trails B # of errors: 0 Trails B score evaluation: WNL 6 Clicks Daily Activity - 6 Clicks Putting on and taking off regular lower body clothing: None Bathing: None Toileting: None Putting on and taking off upper body clothing: None Personal Grooming: None Eating Meals: None Total Score (range 6-24): 24 Score Interpretation: 24 Transfers Transfers Transfer: Yes Transfer 1 Transfer From 1: Sit Transfer Type 1: To and from Transfer to 1: Stand Technique 1: Sit to stand Transfer Level of Assistance 1: Independent Bed Mobility Bed Mobility Bed Mobility: Yes Bed Mobility 1 Bed Mobility From 1: Supine Bed Mobility Type 1: To and from Bed Mobility to 1: Edge of bed Level of Assistance 1: Independent RUE Assessment RUE Assessment RUE Assessment: Within Functional Limits LUE Assessment LUE Assessment LUE Assessment: Within Functional Limits Other Comments Other Comments Comments: Pt engaged in functional mobility independently. Pt was educated on compensatory strategies for decreased short term memory and on ways to improve cognition. Handout was provided and pt verbalized understanding. Pt was informed of recommendation to have assist PRN with IADLs and to follow-up with OP OT. Pt reports assist available for IADLs. OT Goals Multi-Disciplinary Problems (from Occupational Therapy) Active Problems Not on file Cosigned by Aggie Paul OT at 07/02/2022 2:08 PM MOBILE EQUIPMENT OPERATOR LE EQUIPMENT OPERATOR LE EQUIPMENT OPERATOR * Edilia Gan, PT - 07/02/2022 9:39 AM CST Physical Therapy PHYSICAL THERAPY INITIAL DISCHARGE NOTE NOTE: This is a summary note of the owusu components of the evaluation session. For full details, review chart for all flowsheets documented on by this physical therapist on this date. Vital signs documented in vital signs flowsheet. Chart reviewed Assessment: Patient denies need for further physical therapy at this time or reports/demonstrates baseline status with mobility. Patient will be discharged from physical therapy. Please re-refer if status changes. Subjective: Patient reports the following: no new limitations in arms and/or legs, no dizziness with activity or position changes, no falls in the past year, no recent changes in strength and/or balance, and has been mobilizing out of bed during this hospital stay. Patient reports no concerns with home accessibility. Objective: No new functional limitations observed in: shoulder flexion, elbow flexion/extension, hip flexion, knee flexion/extension or ankle dorsiflexion/plantarflexion Alert and oriented to person, place, time and situation and follows commands 07/02/22 0911 General Chart Reviewed Yes Session Type Evaluation PT Received On 07/02/22 Safe Environment Arm Band Checked;Call Light within Reach;Notified RN;Session Completed Bedside;Patient found in Supine;Overbed Table within Reach;Bed in Lowest Position with Wheels locked;Bed rails up per protocol (Sitting at eob at end of session) Subjective Agreeable to Therapy Family/Caregiver Present No Physical Therapy-Patient Goal to go home Precautions Precautions Fall risk Precaution Comments PPE: PT: [id number], gloves. 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 cg for ,,, indep w/o ad Prior Function Level of [place] Independent with ADLs;Independent functional transfers;Independent with ambulation;Independent with homemaking with ambulation Lives With Spouse (Is 's primary caregiver) Receives Help From Spouse/Significant other Driving Yes Fall within the last 6 months Yes Fall within the last 6 months comment 1 fall on ice resulting in this admission Pain Assessment Pain Assessment No/denies pain Cognition Arousal/Alertness Alert;Appropriate responses to stimuli Orientation Oriented X4 (person, place, time, situation) Following Commands Follows all commands and directions without difficulty Safety Judgment Good awareness of safety precautions Compliance/Behavior Easy to engage Sensation Light Touch WFL Numbness/Tingling No Balance Balance Yes Static Sitting Balance Static Sitting-Balance Support No upper extremity supported;Feet supported Static Sitting-Sitting Surface Bed Static Sitting-Level of Assistance Independent Dynamic Sitting Balance Dynamic Sitting-Balance Support No upper extremity supported;Feet supported Dynamic Sitting-Balance Lateral lean;Forward lean;Head control activities (Comment);Trunk control activities Dynamic Sitting-Sitting Surface Bed Dynamic Sitting-Level of Assistance Independent Static Standing Balance Static Standing-Balance Support No upper extremity supported Static Standing-Standing Surface Floor Static Standing-Level of Assistance Independent Bed Mobility Bed Mobility Yes Bed Mobility 1 Bed Mobility From 1 Supine Bed Mobility Type 1 To Bed Mobility to 1 Edge of bed Level of Assistance 1 Modified Independent Transfers Transfer Yes Transfer 1 Transfer From 1 Sit Transfer Type 1 To and from Transfer to 1 Stand Technique 1 Sit to stand;Stand to sit Transfer Device 1 No device Transfer Level of Assistance 1 Modified Independent Ambulation Ambulation Yes Ambulation 1 Distance (ft) 1 1000 Surface 1 Level tile Device 1 No device Assistance 1 Distant supervision Quality of Gait 1 dcreased robyn, flexed posture Ambulation Comments 1 10 M = 14 sec = 0.714 M/sec Stairs Stairs No Stair Comments has ramp to enter home RUE Assessment RUE Assessment WFL LUE Assessment LUE Assessment WFL RLE Assessment RLE Assessment WFL LLE Assessment LLE Assessment WFL Equipment Use Equipment Use Comments gait belt defferred Basic Mobility - 6 Click How much difficulty does the patient have: Turning over in bed 4 How much difficulty does the patient currently have: Sitting down and standing up from a chair witharms? 4 How much difficulty does the patient have: Moving from lying on back to sitting on the side of the bed? 4 How much difficulty does the patient have: Moving to and from a bed to a chair including wheelchair? 4 How much help does the patient currently need: Walk in hospital room? 4 How much help from another person does the patient currently need: Climbing 3-5 steps with a railing? 4 Total 6 Click Score (range 6-24) 24 Assessment Prognosis Excellent Problem List Gait deviations;Decreased strength;Impaired balance Problem List Comments PT Diagnosis: Pt presents with transfer from OSH after fall helping downa ramp and slipped and fell, + head strike, blurry vision, SKH PMH: GERD, BPH, RA, RLS, larygeal CAresults in above listed activity deficits and impairments which prevent full participation in home and community mobility. Barriers to Discharge None Plan Plan Plan of care initiated;If this is the last note, consider this the discharge summary;Discharge Recommendation/Plan PT Recommendation/Plan Outpatient PT (vestibular rehab 2/2 SDH) PT Recommendation/Plan Comments agreeable with dc recs PT Frequency during current admission One time visit (Discharge from this service) Treatment/Interventions during current admission Balance Training;Bed mobility;Endurance training;Functional activity;Functional transfer training;Gait training;Neuromuscular re-education PT - OK to Discharge Yes PT Evaluation Complete Yes Balance: Modified Dynamic Gait Index Gait level surface: Normal Change in Gait Speed: Minimal Impairment Gait with horizontal head turns: Normal Gait with vertical head turns: Normal Score Interpretation: 3 = normal, 2 = Minimal Impairment, 1 = Moderate Impairment, 0 = Severe Impairment Education: Education Topic: Role of PT: purpose of PT in the hospital setting and plan of care, Safety: duringmobility and gait tasks, Precautions: during mobility and gait tasks, and Mobility Training: safetyand technique for in/out of bed/chair/wheelchair and/or gait, proper use of assistive device Who: patient Readiness: Eager and Acceptance Method: Explanation, Teach Back, and Demonstration Response: Verbalizes Understanding and Demonstrates Understanding Goal:pt understand education of benefits of vestibular PT 2/2 vision changes with SDH Goal met Patient in agreement with plan and instructed in safe mobility and out of bed activity. Patient's questions related to physical therapy were addressed. Patient was left in safe position in room with call light within reach. LE EQUIPMENT OPERATOR * Radha Katz RN - 07/02/2022 9:01 AM CST CM Initial Assessment Interview Note Information Obtained From: Patient (07/02/22899) Admission Source: transfer from OSH Impression: 77 year old male admitted for fall Plan Includes: DC home with spouse when medically cleared for discharge Primary Source of Transportation: Does the patient need discharge transport arranged?: No (family) (07/02/22899) Health Insurance Coverage: [facility] medicare Prescription Coverage: yes Pharmacy: [id number] - [place], [place] - [address] [phone] [facility] [id number] Primary Care Provider: Fawn Romeo PA Prior to Admission: Primary Caregiver: Self Who does the patient or legal guardian want to receive education instruction and discharge plans for after care assistance?: Decline Support System: Spouse/Significant Other, Children Support system contact info (name, phone, availablity): Ara Rubi (Daughter) [phone] Home Care Services: Yes 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 : Yes, Outside of home Number of steps outside:: 1 steps (07/01/22 2300) Potential discharge needs include: No needs identified at this time Dialysis: none Behavioral Health Services: Behavioral Health Services: No (07/02/22899) Patient expects to be Discharged to: Private residence, (07/02/22899) Additional Information: address and information verified with patient . Pt states he is retired. Patient's Identified Problem/Goal Problem: Ensure acute medical needs are met and that patient has a safe discharge plan. Goal: Secure a discharge plan that patient/family are agreeable with and ensure patient has continuum of care. Case management will follow for discharge planning and send referrals as needed. Goals include: To assure continuity of care, To maximize coping skills, To assure patient is in a safe environment and To assure access to community resources. Plan includes: 1. Collaboration with patient, , direct care nurse, Advertising Vice President, and other members of the health care team to assure needed interventions completed. 2. Return patient to optimal level of self-care post discharge. 3. Sales Order Administrator will follow for Discharge Planning - interventions as needed 4. Anticipated level of care at discharge 5. Planned Discharge Disposition Based on a comprehensive family assessment, assistance with instrumental activities of daily livingafter discharge will be provided by patient Through the course of our work I determined that the patient possesses the skill and ability to provide and monitor the care of the patient when he or she returns home. patient has the capacity to provide/monitor/arrange for the care of the patient. Finally, we determined that patient has the knowledge of available resources and that combining them with their existing resources will suffice to sustain and care for the patient when he or she returns home. The treatment team is aware of this information. All are in agreement with the aftercare plan. Radha Katz RN LE EQUIPMENT OPERATOR * Radha Rose NP - 07/02/2022 5:59 AM CST [facility] Geriatric Trauma Surgery Daily Progress Note Admit: 07/01/2022 12:47 PM Date: July 02, 2022 Length of Stay: 1 Attending: Terrance Blancas MD POD:* No surgery found * History: Samuel Sanchez is a 77 y.o. male not on anticoagulation with past medical history of laryngeal cancer, rheumatoid arthritis on methotrexate, GERD, chronic rhinitis, RLS, and BPH who presents after mechanical ground level fall was found to have a thin left chronic subdural hematoma with 2 mm of midline shift. Briefly, the patient had a mechanical ground level fall when he slipped on ice earlier today and hit his head. He presented to an outside hospital where workup included a noncontrast head CT which demonstrated a thin chronic appearing left- sided subdural hematoma with minimal midline shift. The patient was subsequently transferred to [facility] for neurosurgical evaluation and management. The patient complains of mild headache which he rates at 2/10. He denies any lossof consciousness. No new numbness, tingling, or weakness in his arms or legs. No changes in his vision. No nausea or vomiting. Repeat Head CT completed in the ED was stable. The patient was admitted to the geriatric trauma service floor for continued management of his acute injuries and chronic cond itions. Interval History: 07/02: new admit to GTS floor overnight. rHCT in ED stable. Patient ok for q4h neuro checks. BI consult and PM&R consult pending for dispo planning. Pain controlled. Pain:controlled Nausea: No Flatus: Yes Bowel Movement: No Medications: Current Facility-Administered Medications: acetaminophen (TYLENOL) tablet 650 mg, 650 mg, oral, Q6H, Nena Smith MD, 650 mg at 07/01/222231 cetirizine (ZyrTEC) tablet 10 mg, 10 mg, oral, Daily - 0600, Nena Smith MD, 10 mg at 07/02/22 0552 famotidine (PEPCID) tablet 40 mg, 40 mg, oral, Nightly, Nena Smith MD fluticasone propionate (FLONASE) 50 mcg/actuation nasal spray 1 spray, 1 spray, each nostril, Daily- 0600, Nena Smith MD folic acid (FOLVITE) tablet 1 mg, 1 mg, oral, Daily - 0600, Nena Smith MD, 1 mg at 07/02/22 05 hydrOXYzine (ATARAX) tablet 25 mg, 25 mg, oral, Q4H PRN, Radha Rose, JOSEPH levETIRAcetam (KEPPRA) 500 mg/100 mL in sodium chloride (premix) 500 mg, 500 mg, intravenous, Q12H [facility] Omolade O., MD, Stopped at 07/01/222103 [START ON 07/07/2022] methotrexate tablet 15 mg, 15 mg, oral, Weekly, Nena Smith MD montelukast (SINGULAIR) tablet 10 mg, 10 mg, oral, Nightly, Nena Smith MD, 10 mg at 07/01/222231 multivitamin with folic acid 400 mcg tablet 1 tablet, 1 tablet, oral, Daily, Nena Smith MD oxyCODONE (ROXICODONE) tablet 5 mg, 5 mg, oral, Q4H PRN, Mik Campos MD rOPINIRole (REQUIP) tablet 1 mg, 1 mg, oral, Nightly, Nena Smith MD, 1 mg at 07/01/221913 senna-docusate (PERICOLACE) 8.6-50 mg per tablet 1 tablet, 1 tablet, oral, BID, Daniela Rose NP Diet: Dietary Orders (From admission, onward) Start Ordered 07/01/222138 Adult Diet Regular Diet effective now Question: ([facility]) Diet type Answer: Regular 07/01/222138 Activity: As tolerated Is&Os: I/O last 2 completed shifts: In: 100 [IV Piggyback:100] Out: - I/O this shift: In: 100 [IV Piggyback:100] Out: - Physical Exam: 24hr Min/Max: Temp Min: 36.4 ??C (97.6 ??F) Max: 36.6 ??C (97.9 ??F) Pulse Min: 58 Max: 72 BP Min: 101/79 Max: 145/87 Resp Min: 11 Max: 18 SpO2 Min: 94 % Max: 99 % Vitals: 07/02/22 0425 BP: 127/84 Pulse: 67 Resp: 18 Temp: 36.6 ??C (97.9 ??F) SpO2: 97% Constitutional: well developed, well nourished, cooperative, and no apparent distress Head: normocephalic, without obvious abnormality Neurologic: Alert, Awake, and Oriented x3, Regards, Follows Commands Answers Questions Appropriately, Fluent Speech Language and vision grossly intact Eyes: conjunctivae/corneas clear. PERRL, EOMs intact HENT: lips, mucosa, and tongue normal Neck: supple, symmetrical, trachea midline Chest: normal appearance, no masses or tenderness Respiratory: clear to auscultation bilaterally and normal chest rise and fall Cardiovascular: regular rate and no S3 or S4 Gastrointestinal: bowel sounds present, non-distended, and soft non-tender Musculoskeletal: extremities normal, warm and well-perfused and normal capillary refill Pulses: radial: bilateral normal Skin: skin color, texture, turgor normal. No rashes or lesions Labs/Imaging: Recent Results (from the past 72 hour(s)) CBC with auto differential Collection Time: 07/01/22 1:38 PM Result Value Ref Range WBC 8.5 3.8 - 9.9 K/cumm Hgb 14.9 13.0 - 17.5 g/dL Hct 43.6 38.9 - 50.3 % Plt 143 (L) 150 - 400 K/cumm MPV 11.4 9.1 - 12.3 fL RBC 4.73 4.30 - 5.80 M/cumm MCV 92.2 81.3 - 96.4 fL MCH 31.5 27.1 - 33.3 pg MCHC 34.2 32.3 - 35.7 g/dL RDW CV 13.4 11.1 - 14.9 % RDW SD 44.6 35.7 - 48.1 fL NRBC abs 0.00 0.00 - 0.01 K/cumm Comprehensive metabolic panel Collection Time: 07/01/22 1:38 PM Result Value Ref Range Sodium 143 135 - 145 mmol/L Potassium, pl 3.8 3.3 - 4.9 mmol/L Chloride 104 97 - 110 mmol/L CO2 29 22 - 32 mmol/L Anion gap 10 2 - 15 mmol/L BUN 16 8 - 25 mg/dL Creatinine 1.06 0.80 - 1.30 mg/dL Glucose 83 70 - 199 mg/dL Calcium 9.1 8.5 - 10.3 mg/dL Bilirubin, total 0.8 0.1 - 1.2 mg/dL Protein, pl 6.8 6.5 - 8.5 g/dL Albumin 4.1 3.5 - 5.0 g/dL Alk phos 70 40 - 130 Units/L ALT 22 7 - 55 Units/L AST 26 10 - 50 Units/L Protime-INR Collection Time: 07/01/22 1:38 PM Result Value Ref Range PT 11.6 9.2 - 13.5 sec INR 1.1 0.9 - 1.2 aPTT Collection Time: 07/01/22 1:38 PM Result Value Ref Range aPTT 30 27 - 37 sec COVID-19 Coronavirus RNA Nasopharyngeal Collection Time: 07/01/22 1:38 PM Specimen: Nasopharyngeal Result Value Ref Range COVID-19 RNA Negative Negative Type and screen Collection Time: 07/01/22 1:38 PM Result Value Ref Range Mohinder, indirect Negative ABO Rh A Positive Differential, auto Collection Time: 07/01/22 1:38 PM Result Value Ref Range Neutrophil abs 6.3 1.7 - 6.5 K/cumm Imm gran abs 0.0 0.0 - 0.1 K/cumm Lymphocyte abs 1.3 0.8 - 3.3 K/cumm Monocyte abs 0.6 0.2 - 0.8 K/cumm Eosinophil abs 0.2 0.0 - 0.5 K/cumm Basophil abs 0.0 0.0 - 0.1 K/cumm Neutrophil pct 74.5 % Imm gran pct 0.5 % Lymphocyte pct 15.2 % Monocyte pct 6.8 % Eosinophil pct 2.8 % Basophil pct 0.2 % eGFR Collection Time: 07/01/22 1:38 PM Result Value Ref Range eGFR 71 (L) 90 - 130 mL/min/1.73 m2 Check Sample Collection Time: 07/01/22 2:00 PM Result Value Ref Range ABO Rh A Positive Urinalysis reflex to microscopic and culture Urine Collection Time: 07/01/22 2:05 PM Specimen: Urine Result Value Ref Range Color, ur Straw Yellow Clarity, ur Clear Clear Specific gravity, ur 1.010 1.003 - 1.030 pH, urine 7.0 Protein, ur ql Negative Negative Glucose, ur ql Negative Negative Ketones, ur Negative Negative Bilirubin, ur Negative Negative Blood, ur Negative Negative Urobilinogen, ur <2.0 <2.0 mg/dL Nitrite, ur Negative Negative Leukocyte esterase, ur Negative Negative UA reflex comment Reflex conditions for microscopic UA and culture not met. XR Chest Pa Lateral 2 Views Result Date: 07/01/2022 1. No acute radiographic findings in the chest or pelvis. Dictated by: Dionte Arce MD The radiology attending physician has personally reviewed this study, and had reviewed and/or edited this written report and agrees with it. Electronically signed by: Luis Flower M.D. CT Head WO Contrast Result Date: 07/01/2022 Stable left cerebral convexity subdural hematoma without significant midline shift. Dictated by: Dilip Garcia M.D. The radiology attending physician has personally reviewed this study, andhad reviewed and/or edited this written report and agrees with it. Electronically signed by: Leana Becerra M.D. XR Outside Reference Result Date: 07/01/2022 These images are for Reference purposes only and have not been reviewed by [facility]. There will be no report generated by a [facility] Radiologist. XR Outside Reference Result Date: 07/01/2022 These images are for Reference purposes only and have not been reviewed by [facility]. There will be no report generated by a [facility] Radiologist. XR Pelvis 1 or 2 Views Result Date: 07/01/2022 1. No acute radiographic findings in the chest or pelvis. Dictated by: Dionte Arce MD The radiology attending physician has personally reviewed this study, and had reviewed and/or edited this written report and agrees with it. Electronically signed by: Luis Flower M.D. Neuro CT MR Outside Consult Result Date: 07/01/2022 No acute traumatic cervical spine injury. The findings, conclusions and recommendations within thisreport do not replace the initial findings, conclusions and recommendations made at the facility where the study was performed based upon the imaging and clinical condition at that time. Comparison with the prior report and clinical history is necessary. The provided images may or may not representthe [place] source data set and thus may contain changes that may lower the accuracy of this second-opinion interpretation. Dictated by: Patricio Marie M.D. The radiology attending physicianhas personally reviewed this study, and had reviewed and/or edited this written report and agrees with it. Electronically signed by: Leana Becerra M.D. Neuro CT MR Outside Consult Result Date: 07/01/2022 Acute subdural hemorrhage about the left cerebral convexity The findings, conclusions and recommendations within this report do not replace the initial findings, conclusions and recommendations made at the facility where the study was performed based upon the imaging and clinical condition at that time. Comparison with the prior report and clinical history is necessary. The provided images may ormay not represent the [place] source data set and thus may contain changes that may lower the accuracy of this second-opinion interpretation. Dictated by: Patricio Marie M.D. The radiology attending physician has personally reviewed this study, and had reviewed and/or edited this written re port and agrees with it. Electronically signed by: Leana D. Vo, M.D. Assessment and Plan: Principal Problem: SDH (subdural hematoma) #L SDH -NSGY c/s - rHCT in ED stable - q4h neuro checks - keppra 500 BID x7 days - BI consult - PM&R consult #acute pain due to trauma - scheduled tylenol - prn oxy #GERD - pepcid nightly #chronic rhinitis - flonase spray daily - zyrtec daily - singulair dialy #RA - continued home methotrexate #RLS - continued home requip #DVT ppx: held per BONITAGY, SCDs Dispo pending therapy recs Radha Rose NP Cosigned by Jessica Raymond MD at 07/02/2022 4:32 PM MOBILE EQUIPMENT OPERATOR LE EQUIPMENT OPERATOR LE EQUIPMENT OPERATOR Associated attestation - Jessica Raymond MD - 07/02/2022 4:32 PM MOBILE EQUIPMENT OPERATOR I have seen and examined the patient on 07/02/22. I agree with the findings and plan of care as discussed with the AVIATION ELECTRONIC WARFARE OPERATOR/PA. Jessica Raymond MD Senior Ui Software Engineer, Acute and Critical Care Surgery [facility] Geriatric Trauma AVIATION ELECTRONIC WARFARE OPERATOR documented in this encounter Consult Notes * Devan Nickerson MD - 07/01/2022 1:46 PM CST [facility] Trauma Surgery ED Consult Note GTS Date of Evaluation: 07/01/22 Sex: male Date of : 1945 Assessment: 77 yo M h/o GERD, BPH, RA (methotrexate), RLS, presents as a trauma s/p SLMF after slipping on a patch of ice while going up a ramp. OSH head CT c/f L SDH, also complaining of L chest wall tenderness Plan: - Trauma labs, CXR, pelvis XR - Rads consult OSH Head CT - NSGY consult - Anticipate need for ICU - Likely GTS admit pending work up Devan Kingsley MD General Surgery Physician requesting consult: Kike Forrester, * with the emergency department has asked that we see Samuel Sanchez for evaluation following injury. Transported: from Outside hospital: [facility] HPI: 77 yo M h/o GERD, BPH, RA (methotrexate), RLS, presents as a trauma s/p SLMF after slipping fausto patch of ice while going up a ramp. He hit his head on the left side as well as his left inferiorrib cage. Presented to OSH mostly due to L chest wall discomfort where head CT revealed SDH. He wastransferred here for further care. On arrival, HDS, Aox4, GCS 15. He complains additionally of weird' feeling in his eyes but no visual field deficits, no blurry vision, he does report dry eyes. No other visible trauma. Independent at baseline, does not use cane or walker, takes care of own ADLs. No blood thinners. Primary and secondary surveys outlined below PRIMARY AND SECONDARY SURVEY Primary Assessment Uncontrolled hemorrhage: No Airway: Patent Eye Opening: Spontaneous Best Verbal Response: Oriented Best Motor Response: Obeys commands April Coma Scale Score: 15 C-Spine Precautions: Not applicable Breathing Effort: Normal Trachea: Midline Central Pulse: Present Capillary Refill: Less than/equal to 3 seconds L Pupil Size (mm): 3 R Pupil Size (mm): 3 L Pupil Reaction: Brisk R Pupil Reaction: Brisk Patient exposed: Yes Warming Devices: Warm Blankets Secondary Assessment Head: No injury noted Pupils: Equal, Reactive right, Reactive left EOM intact: Yes Face: No injury noted Neck: No injury noted Trachea: Midline C-spine step off: No Chest right: No injury noted Chest left: No injury noted Breath Sounds: Normal Breath Sounds Abdomen/Pelvis/Perineum injury : No injury noted Abdomen Inspection: Nondistended, Non-Tender, Soft Pelvic stability: Yes Perineum blood at meatus: No Spine/Posterior surfaces: No injury noted Extremities: Injury Site: LUE Abrasion: L elbow Log rolled: No Rectal tone: Present Allergies: Allergies Allergen Reactions Perfume Swelling, Cough and Shortness of breath Mold Unknown Cat Dander Eye irritation Hydrocodone Itching Vicodin [Hydrocodone-Acetaminophen] Itching Medications: Current Outpatient Medications Medication Instructions cetirizine (ZYRTEC) 10 mg, oral, Daily (early AM) famotidine (PEPCID) 40 mg, oral, Nightly finasteride (PROSCAR) 5 mg, oral, Daily (early AM) fluticasone propionate (FLONASE) 50 mcg/actuation nasal spray 1 spray, each nostril, Daily (early AM) folic acid (FOLVITE) 1 mg, oral, Daily (early AM) methotrexate 2.5 mg tablet 6 tablets, oral, Weekly, saturday montelukast (SINGULAIR) 10 mg, oral, Nightly multivitamin capsule 1 capsule, oral, Every morning omeprazole (PRILOSEC) 40 mg, oral, Daily (early AM) oxyCODONE (ROXICODONE) 5 mg, oral, Every 4 hours PRN rOPINIRole (REQUIP) 1 mg, oral, Nightly UNABLE TO FIND 1 each, oral, Nightly PRN, THC gummie-25mg vit A/vit C/vit E/zinc/copper (PRESERVISION AREDS ORAL) 1 capsule, oral, 2 times daily Past Medical History: Past Medical History: Diagnosis Date Allergic rhinitis Arthritis arthritis Calculus of kidney Nephrolithiasis Cancer of vocal cord (CMS/HCC) ([facility]) Depression Gastric reflux Gastroesophageal reflux disease acid [...] OTHER MEDICAL hemorroids; Comments: [facility] [place] HX OTHER MEDICAL bladder infection HX OTHER MEDICAL kidney stone Low back pain Migraine Rheumatoid arthritis (HCC) Surgical History: Past Surgical History: Procedure Laterality Date BICEPS TENODESIS Left 1969' COLONOSCOPY 03/14/2020 CYSTOSCOPY 2019 EAR SURGERY Left repair perforated eardrum LARYNGOSCOPY Right 01/09/2019 Direct laryngoscopy with biopsy LARYNGOSCOPY Right 02/16/2019 Suspension microlaryngoscopy with KTP laser photoablation Right vocal fold lesion LITHOTRIPSY 5 or 6 times - ORCHIECTOMY Right OTHER SURGICAL HISTORY 04/18/2020 Suspension microlaryngoscopy with KTP laser treatment-multiple PROSTATE SURGERY Pinched Prostate: surgically repaired ROTATOR CUFF REPAIR Right and removal of bone spurs SHOULDER SURGERY Right bone spurs VASECTOMY Social: Social History Social History Narrative Not on file Family History: Family History Adopted: Yes Problem Relation Age of Onset Other Other adopted Other Other adopted Anesthesia problems Neg Hx REVIEW OF SYSTEMS General- no fevers, chills HEENT- no changes in vision, hearing, congestion CV- no chest pain or palpitations Resp- no shortness of breath, no cough GI- no abdominal pain, nausea, vomiting, diarrhea, constipation - no pain with urination, urinary frequency or urgency MSK- no changes in strength, extremity swelling Integument- no new rashes, lumps, or bumps Heme- no easy bruising Endo- no significant changes in weight, no heat or cold intolerance Neuro- No changes in memory or balance Psych- No changes in mood PHYSICAL EXAM: Vitals: 07/01/22 1259 BP: 145/87 Pulse: Resp: Temp: SpO2: Physical Exam Constitutional: General: He is not in acute distress. HENT: Head: Normocephalic and atraumatic. Mouth/Throat: Mouth: Mucous membranes are moist. Eyes: Extraocular Movements: Extraocular movements intact. Pupils: Pupils are equal, round, and reactive to light. Cardiovascular: Rate and Rhythm: Normal rate and regular rhythm. Pulmonary: Effort: Pulmonary effort is normal. No respiratory distress. Chest: Chest wall: Tenderness present. Comments: Tenderness to inferior L rib cage, no palpable step offs Abdominal: General: There is no distension. Palpations: Abdomen is soft. Tenderness: There is no abdominal tenderness. Musculoskeletal: General: No swelling or deformity. Normal range of motion. Cervical back: Normal range of motion. No tenderness. Skin: General: Skin is warm. Capillary Refill: Capillary refill takes less than 2 seconds. Neurological: General: No focal deficit present. Mental Status: He is alert and oriented to person, place, and time. Psychiatric: Mood and Affect: Mood normal. Behavior: Behavior normal. Labs: Laboratory review: Lab results in the last 12 hours: Recent Results (from the past 12 hour(s)) CBC with auto differential Collection Time: 07/01/22 1:38 PM Result Value Ref Range WBC 8.5 3.8 - 9.9 K/cumm Hgb 14.9 13.0 - 17.5 g/dL Hct 43.6 38.9 - 50.3 % Plt 143 (L) 150 - 400 K/cumm MPV 11.4 9.1 - 12.3 fL RBC 4.73 4.30 - 5.80 M/cumm MCV 92.2 81.3 - 96.4 fL MCH 31.5 27.1 - 33.3 pg MCHC 34.2 32.3 - 35.7 g/dL RDW CV 13.4 11.1 - 14.9 % RDW SD 44.6 35.7 - 48.1 fL NRBC abs 0.00 0.00 - 0.01 K/cumm Differential, auto Collection Time: 07/01/22 1:38 PM Result Value Ref Range Neutrophil abs 6.3 1.7 - 6.5 K/cumm Imm gran abs 0.0 0.0 - 0.1 K/cumm Lymphocyte abs 1.3 0.8 - 3.3 K/cumm Monocyte abs 0.6 0.2 - 0.8 K/cumm Eosinophil abs 0.2 0.0 - 0.5 K/cumm Basophil abs 0.0 0.0 - 0.1 K/cumm Neutrophil pct 74.5 % Imm gran pct 0.5 % Lymphocyte pct 15.2 % Monocyte pct 6.8 % Eosinophil pct 2.8 % Basophil pct 0.2 % Imaging: XR Outside Reference Result Date: 07/01/2022 These images are for Reference purposes only and have not been reviewed by [facility]. There will be no report generated by a [facility]iologist. XR Outside Reference Result Date: 07/01/2022 These images are for Reference purposes only and have not been reviewed by [facility]. There will be no report generated by a [facility] Radiologist. Neuro CT MR Outside Consult Result Date: 07/01/2022 Acute subdural hemorrhage about the left cerebral convexity The findings, conclusions and recommendations within this report do not replace the initial findings, conclusions and recommendations made at the facility where the study was performed based upon the imaging and clinical condition at that time. Comparison with the prior report and clinical history is necessary. The provided images may ormay not represent the [facility] source data set and thus may contain changes that may lower the accuracy of this second-opinion interpretation. Dictated by: Tree Gunn MD General Surgery PGY-3 July 01, 2022 1:46 PM Cosigned by Terrance Blancas MD at 07/01/2022 11:58 PM MOBILE EQUIPMENT OPERATOR LE EQUIPMENT OPERATOR LE EQUIPMENT OPERATOR Associated attestation - Terrance Blancas MD - 07/01/2022 11:58 PM MOBILE EQUIPMENT OPERATOR I have seen and examined the patient on 07/01/22. I agree with the findings and plan of care as documented in the resident's/fellow's note.. * Oneida Read MD PhD - 07/01/2022 1:43 PM CSTAssociated Order(s): IP CONSULT TO NEUROSURGERY Neurosurgery Consultation Patient: Samuel Sanchez CSN: [id number] : 1945 Admission date: 07/01/2022 Length of stay (days): 0 Consulting: Dr. Martínez Requesting provider: Dr. Forrester Reason for consultation: Traumatic SDH History of present illness: Samuel Sanchez is a 77 y.o. male not on anticoagulation with past medical history of laryngeal cancer, rheumatoid arthritis on methotrexate, GERD, and BPH who presents after mechanical ground level fall was found to have a thin left chronic subdural hematoma with 2 mm of midline shift. Briefly,the patient had a mechanical ground level fall when he slipped on ice earlier today and hit his head. He presented to an outside hospital where workup included a noncontrast head CT which demonstrated a thin chronic appearing left-sided subdural hematoma with minimal midline shift. The patient was subsequently transferred to [facility] for neurosurgical evaluation and management. The patient complains of mild headache which he rates at 2/10. He denies any loss of consciousness. No new numbness, tingling, or weakness in his arms or legs. No changes in his vision. No nausea or vomiting. Review of systems: A full review of systems was completed and was negative unless otherwise stated in the HPI. Past medical/surgical history: Laryngeal cancer RA on methotrexate GERD BPH Allergies: Allergies Allergen Reactions Perfume Swelling, Cough and Shortness of breath Mold Unknown Cat Dander Eye irritation Hydrocodone Itching Vicodin [Hydrocodone-Acetaminophen] Itching Medications: HOME MEDICATIONS : cetirizine (ZyrTEC) 10 mg tablet famotidine (PEPCID) 40 mg tablet finasteride (PROSCAR) 5 mg tablet fluticasone propionate (FLONASE) 50 mcg/actuation nasal spray folic acid (FOLVITE) 1 mg tablet methotrexate 2.5 mg tablet montelukast (SINGULAIR) 10 mg tablet multivitamin capsule omeprazole (PriLOSEC) 20 mg capsule oxyCODONE (ROXICODONE) 5 mg immediate release tablet rOPINIRole (REQUIP) 1 mg tablet UNABLE TO FIND vit A/vit C/vit E/zinc/copper (PRESERVISION AREDS ORAL) Social history: The patient lives in [facility]. His daughter Chata can be reached at [phone]. 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 He previously smoked 2 packs per day for about 25 years, hequit smoking 30 years ago. He consumes 1-3 alcoholic beverages per month. He occasionally consumes marijuana gummies. Family history: Reviewed and noncontributory. Physical Examination: Neuro: Alert, Awake, and Oriented x3, Regards, Follows Commands Answers Questions Appropriately, Fluent Speech Language and vision grossly intact PERRL, EOMI, Face Symmetric, Tongue Midline D B T HG IH WE RUE: 5 5 5 5 5 5 LUE: 5 5 5 5 5 5 HF KE KF DF PF EHL RLE: 5 5 5 5 5 5 LLE: 5 5 5 5 5 5 No pronator drift Sensation intact and symmetric in all extremities to light touch Psych: normal affect Constitutional: no acute distress HENT: normocephalic Cardiovascular: normal rate Pulmonary: normal respiratory effort Abdominal: non-distended Musculoskeletal: normal range of motion Imaging and Labs: Noncontrast head CT acquired at 10:37 a.m. at the outside hospital demonstrates a thin left chronicappearing subdural hematoma which measures up to 1.1 cm greatest diameter with 2 mm of midline shift. Labs: Sodium 143, creatinine 1.06, WBC 8.5, platelets 143, PT 11.6, INR 1.1, PTT 30, COVID negative, UA negative. Assessment and Plan Patient is a 77-year-old male not on anticoagulation with past medical history of laryngeal cancer status post surgery (May of 2022), rheumatoid arthritis on methotrexate, GERD, BPH presents after mechanical ground level fall who was found to have a thin left convexity chronic appearing subdural hematoma with minimal midline shift who is neurologically intact on exam. Please obtain a repeat [address] interval [address] head [address] to evaluate for stability. The patient should be started on antiseizure prophylaxis with Keppra 500 b.i.d. for 7 days. Please continue q.1h neuro checks until a stability scan has been obtained. BMP, CBC, PT, PTT, UA macro-micro, CXR, EKG, T&S Repeat HCT 6h from prior Keppra 500 BID x7 days Appreciate trauma evaluation and recs Q1h neurochecks pending stability scan ADDENDUM: Repeat HCT stable, ok for Q4h neurochecks. This plan has been discussed with the chief resident and attending assembler semiconductor. The patient was evaluated within 30 minutes of consultation Oneida Read MD PhD Cosigned by Reece Martínez MD at 07/02/2022 1:44 PM MOBILE EQUIPMENT OPERATOR LE EQUIPMENT OPERATOR LE EQUIPMENT OPERATOR LE EQUIPMENT OPERATOR LE EQUIPMENT OPERATOR Associated attestation - Reece Martínez MD - 07/02/2022 1:44 PM MOBILE EQUIPMENT OPERATOR I have seen and examined the patient on 07/02/22. I agree with the findings and plan of care as documented in the resident's/fellow's note.. * Yanet Boudreaux LCSW - 07/01/2022 1:34 PM CSTAssociated Order(s): IP CONSULT TO SOCIAL WORK SW consulted as pt is caregiver for his at home and pt will likely be admitted. SW met with ptand family at bedside. Pt stated they have a nurse who helps at home and she has agreed to stay over tonight with his . Pt dtr and additional family members are available to help out. SW encouraged pt/family to reach out if further needs arise or length of stay is longer than anticipated. TEA Christopher, DERIK LE EQUIPMENT OPERATOR documented in this encounter ED Notes * Denise Manriquez RN - 07/01/2022 5:11 PM CST Bed: ED1-01 Expected date: Expected time: Means of arrival: Comments: 5R Denise Manriquez RN 07/01/22 1711 LE EQUIPMENT OPERATOR * Pau Butler MD - 07/01/2022 1:16 PM CST HPI Chief Complaint Patient presents with Fall Patient is a 77 year old male with a pmhx of GERD, BPH, RA on mtx, RLS with no history of blood thinner use who presented to the ED from an OSH after a fall. Today he was walking outside on a wheelchair ramp and slipped on a patch of ice. He fell down onto the ramp onto his back and hit his head mostly on the left side and then rolled over onto his left side hitting a lip on the ramp. He had someimmediate pain in the left side of his chest but denies any other chest pain or pressure or difficulty taking a deep breath though notes soreness when taking a deep breath on the left side. He statesthat he didn't lose consciousness and was able to ambulate after the event. He continued caring forhis during the morning but with the pain on his left side increasing he was He has not had naus ea or vomiting or abdominal pain. He states that he has not had any headache until now which he rates at about a 2/10. He states that since the fall he has been having intermittent blurry vision in the right eye and states that his vision just 'doesn't feel right.' He went to an OSH where their workup developed an acute on chronic SDH and he was transferred here for further care. En route he needed no further care with stable vitals. 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/2019 Dyspepsia 07/01/2018 DDD (degenerative disc disease), lumbar 09/10/2017 penitentiary use of drug 11/21/2016 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 Calculus of kidney 07/23/2011 Seropositive rheumatoid arthritis of multiple sites ([facility]) ([facility]) 07/03/2011 Shortness of breath 12/26/2010 Headache 12/22/2009 Malignant neoplasm of prostate ([facility]) ([facility]) 1998 Past Medical History: Diagnosis Date Allergic rhinitis Arthritis arthritis Calculus of kidney Nephrolithiasis Cancer of vocal cord ([facility]) ([facility]) Depression Gastric reflux Gastroesophageal reflux disease acid [...] OTHER MEDICAL hemorroids; Comments: [facility] [place] HX OTHER MEDICAL bladder infection HX OTHER MEDICAL kidney stone Low back pain Migraine Rheumatoid arthritis (HCC) Past Surgical History: Procedure Laterality Date BICEPS TENODESIS Left COLONOSCOPY 03/14/2020 CYSTOSCOPY 2019 EAR SURGERY Left repair perforated eardrum LARYNGOSCOPY Right 01/09/2019 Direct laryngoscopy with biopsy LARYNGOSCOPY Right 02/16/2019 Suspension microlaryngoscopy with KTP laser photoablation Right vocal fold lesion LITHOTRIPSY 5 or 6 times - [id number] ORCHIECTOMY Right OTHER SURGICAL HISTORY 04/18/2020 Suspension microlaryngoscopy with KTP laser treatment-multiple PROSTATE SURGERY Pinched Prostate: surgically repaired ROTATOR CUFF REPAIR Right and removal of bone spurs SHOULDER SURGERY Right bone spurs VASECTOMY Family History Adopted: Yes Problem Relation Age of Onset Other Other adopted Other Other adopted Anesthesia problems Neg Hx Social History Tobacco Use Smoking status: Former Packs/day: 1.50 Years: 30.00 Pack years: 45.00 Types: Cigarettes Start date: 1958 Quit date: 1995 Years since quittin.0 Smokeless tobacco: Never Vaping Use Vaping Use: Never used Substance and Sexual Activity Alcohol use: Yes Alcohol/week: 3.0 standard drinks Types: 3 Standard drinks or equivalent per week Drug use: Yes Types: Medical marijuana Sexual activity: Defer Social History Social History Narrative Not on file Review of Systems Review of Systems Constitutional: All other systems are reviewed and negative unless noted in the HPI. Physical Exam ED Triage Vitals Temp Pulse Resp BP SpO2 07/01/22 1252 07/01/22 1252 07/01/22 1252 07/01/22 1259 07/01/22 1252 36.4 ??C (97.6 ??F) 64 13 145/87 99 % Temp src Heart Rate Source Patient Position BP Location FiO2 (%) 07/01/22 1252 07/01/22 2115 07/01/22 2115 07/01/222114 -- Oral Monitor Lying Right arm Height Height Method Weight Weight Method 07/01/22 1252 07/01/22 1252 07/01/22 1252 07/01/22 1252 1.854 m (6' 1 ) Stated 97.5 kg (215 lb) Stated Physical Exam Constitutional: General: He is not in acute distress. Appearance: Normal appearance. HENT: Head: Normocephalic and atraumatic. Right Ear: External ear normal. Left Ear: External ear normal. Nose: Nose normal. Mouth/Throat: Mouth: Mucous membranes are moist. Pharynx: Oropharynx is clear. Eyes: Extraocular Movements: Extraocular movements intact. Pupils: Pupils are equal, round, and reactive to light. Cardiovascular: Rate and Rhythm: Normal rate and regular rhythm. Pulses: Normal pulses. Heart sounds: Normal heart sounds. Pulmonary: Effort: Pulmonary effort is normal. Breath sounds: Normal breath sounds. Abdominal: General: Abdomen is flat. There is no distension. Tenderness: There is no abdominal tenderness. There is no guarding or rebound. Musculoskeletal: Cervical back: Normal range of motion and neck supple. Comments: He has a small abrasion with ecchymosis over the left medial condyle of the elbow- patient has full painless ROM in the joint. He has tenderness to palpation over the posterolateral chest wall covering a large area with no overlying ecchymosis or skin changes. Skin: General: Skin is warm. Capillary Refill: Capillary refill takes less than 2 seconds. Neurological: General: No focal deficit present. Mental Status: He is alert and oriented to person, place, and time. Cranial Nerves: No cranial nerve deficit. MDM Medical Decision Making Patient is a 77 year old male with a pmhx of GERD, BPH, RA on mtx, RLS with no history of blood thinner use who presented to the ED from an OSH after a fall with right vision changes and left sided posterior chest wall pain. Vitals have been WNL satting 100% on RA. Exam notable for chest wall tenderness on the left, normal neurological exam apart from right sided visual changes. Imaging at OSH notable for acute on chronic SDH with no midline shift. Will obtain basic pre-op labs, get CXR and pelvic films at the request of the consulting services- neurosurgery and geriatric trauma surgery, Willrepeat head CT in 6 hours (1630), start keppra 500 BID and anticipate admission for further monitoring. Social consult also for assistance with cares for his . Amount and/or Complexity of Data Reviewed External Data Reviewed: radiology. Labs: ordered. Decision-making details documented in ED Course. Radiology: ordered. Decision-making details documented in ED Course. Risk OTC drugs. Decision regarding hospitalization. Attending Summary of Care ED Course as of 07/02/22 06 Time: 07/01 1313 Comment: Teaching Resident Note: 77-year-old male with a history of laryngeal malignancy, degenerative disc disease, rheumatoid arthritis not on aspirin, Plavix, blood thinners presenting as a transfer for subdural. Reports a mechanical fall earlier today striking his head. No loss of consciousness. 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 Also received left shoulder films and was transferred here. Well- appearing here, A&O x4, no motor or sensory deficits. Will plan for 6 hours stability scan, Keppra, neurosurgeon, Sylvia trauma consultation. Will need ICU versus step-down admission depending on level of neuro checks. Having some left upper chest pain, will need further workup and imaging, at least a chest x-ray and maybea CT scan. Low suspicion for central cord, T or L-spine fracture, renal hemorrhage. By: Amador Nam MD Time: 07/01 1324 Comment: Consult placed to NSurg. Consult called to [facility]- they will come to see the patient. By: Pau Butler MD Time: 07/01 1325 Comment: 77yom with fall from home, hit head, no LOC but hit L flank on handicap ramp, seen at OSH and noted to have L SDH s midline shift. Neuro intact . Will upload films and d/w [facility]. Plan for labsincluding cbc, bmp, t+s, coags (pt denies ASA/plavix/other AC use), initial XR to eval ribs/lungs, further imaging potentially after d/w [facility]. Pt will be admitted. By: Kike Forrester MD Time: 07/01 1337 Value: Temp: 36.4 ??C (97.6 ??F) Comment: (Reviewed) By: Amador Nam MD Time: 07/01 1401 Value: Plt(!): 143 Comment: (Reviewed) By: Pau Butler MD Time: 07/01 1407 Value: WBC: 8.5 Comment: (Reviewed) By: Pau Butler MD Time: 07/01 7882 Comment: Attending sign out: 77 M, mechanical fall, L SDH, no shift, transfer from OSH for NSGY, [facility]TS to see, likely admit to [facility] By: Monica Goetz MD Time: 07/01 1807 Comment: [facility] By: Amador Nam MD Time: 07/01 1826 Value: CT Head WO Contrast Comment: IMPRESSION: Stable left cerebral convexity subdural hematoma without significant midline shift. By: Pau Butler MD Time: 07/01 1838 Comment: Teach Sign Out: 77y/o M w/ [facility] fall, + heead strike, no LOC, 7mm L SDH. Repeat scan stable. Neuro intact. By: Anabelle Llamas MD Time: 07/01 1956 Comment: Per NSGY, will switch to q4 neurochecks and admit to floor By: Aixa Duvall MD SDH (subdural hematoma) Diagnosis unknown Frail elderly Pau Butler MD Resident 07/02/22 0605 Cosigned by Kike Forrester MD at 07/04/2022 12:25 PM MOBILE EQUIPMENT OPERATOR LE EQUIPMENT OPERATOR LE EQUIPMENT OPERATOR Associated attestation - Kike Forrester MD - 07/04/2022 12:25 PM MOBILE EQUIPMENT OPERATOR I evaluated the patient on 07/01/2022 and agree with the history, exam, and plan as documented unless otherwise noted. * Denise Manriquez RN - 07/01/2022 12:50 PM CST Pt to ED via [facility] after experiencing a fall this morning. 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 Pt denies LOC, states he experienced some blurry vision after the fall. Pt presented to OSH and was found to have SDH. Pt transferred to [facility] for higher level of care. Accepted as level 3 trauma. Pt Aox4, appears NAD, VSS. LE EQUIPMENT OPERATOR * Denise Manriquez RN - 07/01/2022 12:47 PM CST Bed: [facility] Expected date: 07/01/22 Expected time: 11:32 AM Means of arrival: [facility] Comments: Denise Manriquez RN 07/01/22 1247 LE EQUIPMENT OPERATOR documented in this encounter Miscellaneous Notes * Plan of Care - Wilfrido Collado RN - 07/03/2022 9:24 AM CST Problem: Safety: Goal: Will remain free from falls Outcome: Progressing Problem: Safety: Goal: Will remain free from injury from falls Outcome: Progressing Problem: Health Behavior: Goal: Understanding of discharge needs will improve Outcome: Progressing Goals: Clinical Goals for the Shift: pt will verbalize understanding of dischrage instructions Summary: LE EQUIPMENT OPERATOR * Plan of Care - Igor Yeboah RN - 07/02/2022 9:27 PM CST Goals: Clinical Goals for the Shift: vitals and neuro checks q4, maintain skin integrity Summary: Problem: Safety: Goal: Will remain free from falls Outcome: Progressing Problem: Safety: Goal: Will remain free from falls Outcome: Progressing LE EQUIPMENT OPERATOR * Plan of Care - Leana Garcia RN - 07/02/2022 2:04 PM CST Goals: Clinical Goals for the Shift: vitals and neuro checks q4, maintain skin integrity Summary: Problem: Lack of Knowledge: Goal: Ability to state ways to decrease the risk of falls will improve Outcome: Progressing Problem: Safety: Goal: Will remain free from falls Outcome: Progressing Problem: Safety: Goal: Will remain free from injury from falls Outcome: Progressing Problem: Safety: Goal: Will remain free from falls and injury in home environment Outcome: Progressing Problem: Health Behavior: Goal: Understanding of discharge needs will improve Outcome: Progressing LE EQUIPMENT OPERATOR * Plan of Care - Radha Katz RN - 07/02/2022 10:21 AM CST Per Medical Chart/Rounds/DCAM: awaiting OT rec, neuro consult ADD: today vs tomorrow Plan & referrals made/in place: No needs identified at this time Support following discharge: daughter Transportation: family Patient's Identified Problem/Goal Problem: Ensure acute medical needs are met and that patient has a safe discharge plan. Goal: Secure a discharge plan that patient/family are agreeable with and ensure patient has continuum of care. LE EQUIPMENT OPERATOR LE EQUIPMENT OPERATOR LE EQUIPMENT OPERATOR * Plan of Care - Kylee Morton RN - 07/01/2022 11:13 PM CST Goals: Summary: Problem: Lack of Knowledge: Goal: Ability to state ways to decrease the risk of falls will improve Outcome: Progressing Problem: Safety: Goal: Will remain free from falls Outcome: Progressing Goal: Will remain free from injury from falls Outcome: Progressing Goal: Will remain free from falls and injury in home environment Outcome: Progressing LE EQUIPMENT OPERATOR * ED Re-evaluation Note - Aixa Duvall MD - 07/01/2022 7:02 PM CST ED Re-evaluation TRANSITION OF CARE: I, Aixa Duvall MD, am taking signout from Dr. Pau Butler (Resident) under supervision of my attending physician. I have reviewed all pertinent vital signs, allergies, and history available in the chart. Summary: 77 y.o. male with a pmhx of GERD, BPH, RA on mtx, RLS with no history of blood thinner usewho presented to the ED from an OSH after a fall. CTH notable for 7mm L SDH. Neuro exam intact. Started on keppra. Consulted [facility] and NSGY. Lab results: hb 14.9, INR 1.1, PT 11.6, UA wnl Imaging results: CTH w stable left cerebral convexity subdural hematoma without significant midline shift Pending: n/a Dispo: admission to SICU Current visit diagnosis: 1. SDH (subdural hematoma) 2. Diagnosis unknown 3. Frail elderly ED Course as of 07/01/22 2309 Time: 07/01 1313 Comment: Teaching Resident Note: 77-year-old male with a history of laryngeal malignancy, degenerative disc disease, rheumatoid arthritis not on aspirin, Plavix, blood thinners presenting as a transfer for subdural. Reports a mechanical fall earlier today striking his head. No loss of consciousness. 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 Also received left shoulder films and was transferred here. Well- appearing here, A&O x4, no motor or sensory deficits. Will plan for 6 hours stability scan, Porfirio, neurosurgeon, Sylvia trauma consultation. Will need ICU versus step-down admission depending on level of neuro checks. Having some left upper chest pain, will need further workup and imaging, at least a chest x-ray and maybea CT scan. Low suspicion for central cord, T or L-spine fracture, renal hemorrhage. By: Amador Nam MD Time: 07/01 1324 Comment: Consult placed to NSurg. Consult called to GTS- they will come to see the patient. By: Pau Butler MD Time: 07/01 1325 Comment: 77yom with fall from home, hit head, no LOC but hit L flank on handicap ramp, seen at OSH and noted to have L SDH s midline shift. Neuro intact . Will upload films and d/w [facility]. Plan for labsincluding cbc, bmp, t+s, coags (pt denies ASA/plavix/other AC use), initial XR to eval ribs/lungs, further imaging potentially after d/w [facility]. Pt will be admitted. By: Kike Forrester MD Time: 07/01 8006 Value: Temp: 36.4 ??C (97.6 ??F) Comment: (Reviewed) By: Amador Nam MD Time: 07/01 140 Value: Plt(!): 143 Comment: (Reviewed) By: Pau Butler MD Time: 07/01 1404 Value: WBC: 8.5 Comment: (Reviewed) By: Pau Butler MD Time: 07/01 150 Comment: Attending sign out: 77 M, mechanical fall, L SDH, no shift, transfer from OSH for NSGY, GTS to see, likely admit to [facility] By: Monica Goetz MD Time: 07/01 1807 Comment: Signed out to [facility] By: Amador Nam MD Time: 07/01 1826 Value: CT Head WO Contrast Comment: IMPRESSION: Stable left cerebral convexity subdural hematoma without significant midline shift. By: Pau Butler MD Time: 07/01 1838 Comment: Teach Sign Out: 77y/o M [facility], + heead strike, no LOC, 7mm L SDH. Repeat scan stable. Neuro intact. By: Anabelle Llamas MD Time: 07/01 1956 Comment: Per NSGY, will switch to q4 neurochecks and admit to floor By: Aixa Duvall MD Kim, Lisa Jisun, MD Resident 07/01/222308 LE EQUIPMENT OPERATOR * ED Pre-Arrival Note - Francesca Clements RN - 07/01/2022 11:41 AM MOBILE EQUIPMENT OPERATOR Pre-Arrival Note Level 3 trauma transfer from [facility], pt fell today, has left frontal SDH, approx 7mm, no mass effect, report called to Dr Forrester, coming by air Francesca Clements RN LE EQUIPMENT OPERATOR documented in this encounter Plan of [...] stairs Contact your local community or senior jackson for information on exercise, fall prevention programs, or options for improving home safety. documented as of this encounter Procedures Procedure Name Priority Date/Time Associated Diagnosis Comments EGFR Routine 07/03/2022 12:05 AM MOBILE EQUIPMENT OPERATOR DIFFERENTIAL AUTO Routine 07/03/2022 12: 05 AM MOBILE EQUIPMENT OPERATOR CBC WITH AUTO DIFFERENTIAL Routine 07/03/2022 12:05 AM MOBILE EQUIPMENT OPERATOR BASIC METABOLIC PANEL Routine 07/03/2022 12:05 AM MOBILE EQUIPMENT OPERATOR ECG 12-LEAD STAT 07/01/2022 11:27 [address] EQUIPMENT OPERATOR [address] HEAD WO CONTRAST ED Urgent/IP Urgent 07/01/2022 4:45 PM MOBILE EQUIPMENT OPERATOR URINALYSIS AND REFLEX TO MICROSCOPIC AND CULTURE STAT 07/01/2022 2:05 PM MOBILE EQUIPMENT OPERATOR XR PELVIS 1 OR 2 VIEWS ED Urgent/IP Urgent 07/01/2022 2:01 PM MOBILE EQUIPMENT OPERATOR XR CHEST PA LATERAL 2 VIEWS ED Urgent/IP Urgent 07/01/2022 2:01 PM MOBILE EQUIPMENT OPERATOR B CHECK SAMPLE STAT 07/01/2022 2:00 PM MOBILE EQUIPMENT OPERATOR NEURO CT MR OUTSIDE CONSULT Routine 07/01/2022 1:41 PM MOBILE EQUIPMENT OPERATOR Diagnosis unknown COVID-19 CORONAVIRUS RNA Routine 07/01/2022 1:38 PM MOBILE EQUIPMENT OPERATOR EGFR STAT 07/01/2022 1:38 PM MOBILE EQUIPMENT OPERATOR DIFFERENTIAL AUTO STAT 07/01/2022 1:3 8 PM MOBILE EQUIPMENT OPERATOR CBC WITH AUTO DIFFERENTIAL STAT 07/01/2022 1:38 PM MOBILE EQUIPMENT OPERATOR APTT STAT 07/01/2022 1:38 PM MOBILE EQUIPMENT OPERATOR PROTIME-INR STAT 07/01/2022 1:38 PM MOBILE EQUIPMENT OPERATOR HC ANTIBODY SCREEN RBC STAT 07/01/2022 1:38 PM MOBILE EQUIPMENT OPERATOR COMPREHENSIVE METABOLIC PANEL STAT 07/01/2022 1:38 PM MOBILE EQUIPMENT OPERATOR NEURO CT MR OUTSIDE CONSULT Routine 07/01/2022 1:37 PM MOBILE EQUIPMENT OPERATOR Diagnosis unknown XR TRANSFER OF OUTSIDE FILMS Routine 07/01/2022 1:34 PM MOBILE EQUIPMENT OPERATOR Diagnosis unknown XR TRANSFER OF OUTSIDE FILMS ED 07/01/2022 1:00 PM MOBILE EQUIPMENT OPERATOR documented in this encounter Results * (ABNORMAL) eGFR (07/03/2022 12:05 AM MOBILE EQUIPMENT OPERATOR) [facility] eGFR 71(L) 90 - 130 mL/min/1. 73 m2 [facility] Comment: Interpretive Data Reference Interval Normal ?>/= [...] of Race in Diagnosing Kidney Disease, JASN 202). The CKD-EPI equation should not be used for patients with unstable renal function and has not been validated in children and those over 70. Current interpretive data was last reviewed 2021. Blood 07/03/2022 12:0 5 AM MOBILE EQUIPMENT OPERATOR 07/03/2022 12:26 AM MOBILE EQUIPMENT OPERATOR us Terrance Blancas MD LAB BLOOD ORDERABLES Final Result [facility] Department [place] [address] * Differential, auto (07/03/2022 12:05 AM MOBILE EQUIPMENT OPERATOR) Neutrophil abs 4.0 1.7 - 6.5 K/cumm [facility] Imm gran abs 0.0 0.0 - 0.1 K/cumm [facility] Lymphocyte abs 1.1 0.8 - 3.3 K/cumm [facility] Monocyte abs 0.5 0.2 - 0.8 K/cumm [facility] Eosinophil abs 0.3 0.0 - 0.5 K/cumm [facility] Basophil abs 0.0 0.0 - 0.1 K/cumm [facility] Neutrophil pct 66.7 % [facility] Comment: Interpretive Data Percent cell count reference ranges are not reported, since discordance with absolute values may lead to misinterpretation of CBC data. Current Interpretive Data was last revised on 2017. Imm gran pct 0.3 % [facility] Comment: Interpretive Data Percent cell count reference ranges are not reported, since discordance with absolute values may lead to misinterpretation of CBC data. Current Interpretive Data was last revised on 2017. Lymphocyte pct 18.9 % [facility] Comment: Interpretive Data Percent cell count reference ranges are not reported, since discordance with absolute values may lead to misinterpretation of CBC data. Current Interpretive Data was last revised on 2017. Monocyte pct 7.9 % [facility] Comment: Interpretive Data Percent cell count reference ranges are not reported, since discordance with absolute values may lead to misinterpretation of CBC data. Current Interpretive Data was last revised on 2017. Eosinophil pct 5.7 % [facility] Comment: Interpretive Data Percent cell count reference ranges are not reported, since discordance with absolute values may lead to misinterpretation of CBC data. Current Interpretive Data was last revised on 2017. Basophil pct 0.5 % [facility] Comment: Interpretive Data Percent cell count reference ranges are not reported, since discordance with absolute values may lead to misinterpretation of CBC data. Current Interpretive Data was last revised on 2017. Blood 07/03/2022 12:0 5 AM MOBILE EQUIPMENT OPERATOR 07/03/2022 12:32 AM MOBILE EQUIPMENT OPERATOR us Terrance Blancas MD LAB BLOOD ORDERABLES Final Result [facility] Department [place] [address] * (ABNORMAL) CBC with auto differential (07/03/2022 12:05 AM MOBILE EQUIPMENT OPERATOR) WBC 5.9 3.8 - 9.9 K/cumm [facility] Hgb 14.1 13.0 - 17.5 g/dL [facility] Hct 41.3 38.9 - 50.3 % [facility] Plt 127(L) 150 - 400 K/cumm [facility] MPV 10.9 9.1 - 12.3 fL [facility] RBC 4.47 4.30 - 5.80 M/cumm [facility] MCV 92.4 81.3 - 96.4 fL [facility] MCH 31.5 27.1 - 33.3 pg [facility] MCHC 34.1 32.3 - 35.7 g/dL [facility] RDW CV 13.4 11.1 - 14.9 % [facility] RDW SD 45.2 35.7 - 48.1 fL [facility] NRBC abs 0.00 0.00 - 0.01 K/cumm [facility] Blood 07/03/2022 12:0 5 AM MOBILE EQUIPMENT OPERATOR 07/03/2022 12:32 AM MOBILE EQUIPMENT OPERATOR Terrance Blancas MD LAB BLOOD ORDERABLES Final Result Performing Organization Address City/[facility]/ZIP Co de Phone Number [facility] Department [place] [address] * Basic metabolic panel (07/03/2022 12:05 AM MOBILE EQUIPMENT OPERATOR) Pathologist [facility] Sodium 141 135 - 145 mmol/L [facility] Potassium, pl 3.8 3.3 - 4.9 mmol/L [facility] Chloride 107 97 - 110 mmol/L [facility] CO2 27 22 - 32 mmol/L [facility] Anion gap 7 2 - 15 mmol/L [facility] BUN 25 8 - 25 mg/dL [facility] Creatinine 1.07 0.80 - 1.30 mg/dL [facility] Glucose 102 70 - 199 mg/dL [facility] Comment: Interpretive Data Fasting glucose >/= 126 [...] interpretive data was last revised 2022. Calcium 9.1 8.5 - 10.3 mg/dL [facility] Blood 07/03/2022 12:0 5 AM MOBILE EQUIPMENT OPERATOR 07/03/2022 12:26 AM MOBILE EQUIPMENT OPERATOR Terrance Blancas MD LAB BLOOD ORDERABLES Final Result Performing Organization Address City/[facility]/ZIP Co de Phone Number [facility] Department [place] [address] * ECG 12 lead (07/01/2022 11:27 PM MOBILE EQUIPMENT OPERATOR) Ventricular Rate EKG/Min [address] [facility] Atrial Rate [address] [facility] MT-Interval (MSEC) [address] [facility] QRS-Interval (MSEC) [address] [facility] QT-Interval (MSEC) [address] [facility] QTc [address] [facility] P [place] [address] [facility] R [place] -[address] [facility] T [place] [address] [facility] Diagnosis Normal sinus rhythm Nonspecific T wave abnormality Abnormal ECG No previous ECGs available Confirmed by ADITHYA RINALDI M.D ([id number]) on 07/03/2022 4:06:[address] [facility] 07/01/2022 11:2 7 PM MOBILE EQUIPMENT OPERATOR 07/03/2022 4:06 PM MOBILE EQUIPMENT OPERATOR us Terrance Blancas MD ECG ORDERABLES Final Resul t [facility] * CT Head WO Contrast (07/01/2022 4:45 PM MOBILE EQUIPMENT OPERATOR) Anatomical Region Laterality Modality Head and Neck N/A Computed Tomogra phy 07/01/2022 4:53 PM MOBILE EQUIPMENT OPERATOR Impressions 07/01/2022 4:57 PM MOBILE EQUIPMENT OPERATOR Stable left cerebral convexity subdural hematoma without significant midline shift. Dictated by: Dilip Garcia M.D. The radiology attending physician has personally reviewed this study, and had reviewed and/or edited this written report and agrees with it. Electronically signed by: Leana Becerra M.D. Narrative 07/01/2022 4:57 PM MOBILE EQUIPMENT OPERATOR EXAMINATION: CT head without contrast HISTORY: Subdural hemorrhage follow-up. TECHNIQUE: Noncontrast CT of the brain was performed with images acquired from skull base to vertex. COMPARISON: CT head 07/01/2022. FINDINGS: There is an intermediate attenuation left cerebral convexity subdural collection measuring up to 7 mm and coronal dimension, similar when measured in a similar fashion (series 4 image 38). ??There is mild mass effect along the underlying left cerebral hemisphere and sulci without significant midline shift. ??There is generalized cerebral atrophy with expected prominence of the ventricles and sulci. ??The washburn-white differentiation is normal. ??The orbits are normal. Intracranial atherosclerosis including the anterior cerebral artery which is ectatic. Bilateral accessory maxillary ostia versus antrostomies. ??The paranasal sinuses and mastoid air cells are clear. Procedure Note Leana Becerra MD - 07/01/2022 EXAMINATION: CT head without contrast HISTORY: Subdural hemorrhage follow-up. TECHNIQUE: Noncontrast CT of the brain was performed with images acquired from skull base to vertex. COMPARISON: CT head 07/01/2022. FINDINGS: There is an intermediate attenuation left cerebral convexity subdural collection measuring up to 7 mm and coronal dimension, similar when measured in a similar fashion (series 4 image 38). There is mild mass effect along the underlying left cerebral hemisphere and sulci without significant midline shift. There is generalized cerebral atrophy with expected prominence of the ventricles and sulci. The washburn-white differentiation is normal. The orbits are normal. Intracranial atherosclerosis including the anterior cerebral artery which is ectatic. Bilateral accessory maxillary ostia versus antrostomies. The paranasal sinuses and mastoid air cells are clear. IMPRESSION: Stable left cerebral convexity subdural hematoma without significant midline shift. Dictated by: Dilip Garcia M.D. The radiology attending physician has personally reviewed this study, and had reviewed and/or edited this written report and agrees with it. Electronically signed by: Leana Becerra M.D. Pau Butler MD IM CT PROCEDURES Mariaa l Result * Urinalysis reflex to microscopic and culture Urine (07/01/2022 2:05 PM MOBILE EQUIPMENT OPERATOR) Color, ur Straw Yellow [facility] Clarity, ur Clear Clear [facility] Specific gravity, ur 1.010 1.003 - 1.030 [facility] pH, urine 7.0 [facility] Protein, ur ql Negative Negative [facility] Glucose, ur ql Negative Negative [facility] Ketones, ur Negative Negative [facility] Bilirubin, ur Negative Negative [facility] Blood, ur Negative Negative [facility] Urobilinogen, ur <2.0 <2.0 mg/dL [facility] Nitrite, ur Negative Negative [facility] Leukocyte esterase, ur Negative Negative [facility] UA reflex comment Reflex conditions for microscopic UA and culture not met. [facility] Urine 07/01/2022 2:05 PM MOBILE EQUIPMENT OPERATOR 07/01/2022 2:16 PM MOBILE EQUIPMENT OPERATOR Narrative [facility] - 07/01/2022 2:22 PM MOBILE EQUIPMENT OPERATOR ?? Urine pH is affected by diet, medications, systemic acid-base disturbances, and renal tubular function. ??pH may affect urinary stone formation. ??For example, urine pH below 6.0 may help reduce the tendency for calcium phosphate stones and pH greater than 6.0 may reduce the tendency for uric acid stone formation. Source: [employer] [employer]. Last revised 06-13-2017 us Pau Butler MD LAB MICROBIOLOGY - GEN ERAL ORDERABLES Final Result [facility] Department [place] [address] * XR Pelvis 1 or 2 Views (07/01/2022 2:01 PM MOBILE EQUIPMENT OPERATOR) Anatomical Region Laterality Modality Body, Pelvis N/A Computed Radiogr aphy 07/01/2022 2:11 PM MOBILE EQUIPMENT OPERATOR Impressions 07/01/2022 4:27 PM MOBILE EQUIPMENT OPERATOR 1. ??No acute radiographic findings in the chest or pelvis. Dictated by: Dionte Arce MD The radiology attending physician has personally reviewed this study, and had reviewed and/or edited this written report and agrees with it. Electronically signed by: Luis Flower M.D. Narrative 07/01/2022 4:27 PM MOBILE EQUIPMENT OPERATOR EXAMINATION: XR CHEST PA LATERAL 2 VIEWS, XR PELVIS 1 OR 2 VIEWS HISTORY: 77-year-old man presenting after a fall with left chest wall tenderness COMPARISON: The current study is compared with the prior radiograph dated 05/02/2017 FINDINGS: CHEST: The thoracic aorta is tortuous. ??No acute displaced rib fracture. ??No pulmonary edema, pleural effusion or pneumothorax. Cardiac and mediastinal contours are normal. ??Mildly progressive diffuse idiopathic skeletal hyperostosis is present within the thoracic spine. ??No vertebral body height loss. Pelvis: A single view of the pelvis is submitted for interpretation. Moderate bilateral hip joint osteoarthritis is present with osteophyte formation. ??No acute fracture or dislocation. Degenerative changes of the lower lumbar spine are partially visualized. ??Vascular calcifications are present Procedure Note Luis Flower MD - 07/01/2022 EXAMINATION: XR CHEST PA LATERAL 2 VIEWS, XR PELVIS 1 OR 2 VIEWS HISTORY: 77-year-old man presenting after a fall with left chest wall tenderness COMPARISON: The current study is compared with the prior radiograph dated 05/02/2017 FINDINGS: CHEST: The thoracic aorta is tortuous. No acute displaced rib fracture. No pulmonary edema, pleural effusion or pneumothorax. Cardiac and mediastinal contours are normal. Mildly progressive diffuse idiopathic skeletal hyperostosis is present within the thoracic spine. No vertebral body height loss. Pelvis: A single view of the pelvis is submitted for interpretation. Moderate bilateral hip joint osteoarthritis is present with osteophyte formation. No acute fracture or dislocation. Degenerative changes of the lower lumbar spine are partially visualized. Vascular calcifications are present IMPRESSION: 1. No acute radiographic findings in the chest or pelvis. Dictated by: Dionte Arce MD The radiology attending physician has personally reviewed this study, and had reviewed and/or edited this written report and agrees with it. Electronically signed by: Luis Flower M.D. Pau Butler MD IMG XR PROCEDURES Mariaa l Result * XR Chest Pa Lateral 2 Views (07/01/2022 2:01 PM MOBILE EQUIPMENT OPERATOR) Anatomical Region Laterality Modality Body, Chest N/A Computed Radiogr aphy 07/01/2022 2:11 PM MOBILE EQUIPMENT OPERATOR Impressions 07/01/2022 4:27 PM MOBILE EQUIPMENT OPERATOR 1. ??No acute radiographic findings in the chest or pelvis. Dictated by: Dionte Arce MD The radiology attending physician has personally reviewed this study, and had reviewed and/or edited this written report and agrees with it. Electronically signed by: Luis Flower M.D. Narrative 07/01/2022 4:27 PM MOBILE EQUIPMENT OPERATOR EXAMINATION: XR CHEST PA LATERAL 2 VIEWS, XR PELVIS 1 OR 2 VIEWS HISTORY: 77-year-old man presenting after a fall with left chest wall tenderness COMPARISON: The current study is compared with the prior radiograph dated 05/02/2017 FINDINGS: CHEST: The thoracic aorta is tortuous. ??No acute displaced rib fracture. ??No pulmonary edema, pleural effusion or pneumothorax. Cardiac and mediastinal contours are normal. ??Mildly progressive diffuse idiopathic skeletal hyperostosis is present within the thoracic spine. ??No vertebral body height loss. Pelvis: A single view of the pelvis is submitted for interpretation. Moderate bilateral hip joint osteoarthritis is present with osteophyte formation. ??No acute fracture or dislocation. Degenerative changes of the lower lumbar spine are partially visualized. ??Vascular calcifications are present Procedure Note Luis Flower MD - 07/01/2022 EXAMINATION: XR CHEST PA LATERAL 2 VIEWS, XR PELVIS 1 OR 2 VIEWS HISTORY: 77-year-old man presenting after a fall with left chest wall tenderness COMPARISON: The current study is compared with the prior radiograph dated 05/02/2017 FINDINGS: CHEST: The thoracic aorta is tortuous. No acute displaced rib fracture. No pulmonary edema, pleural effusion or pneumothorax. Cardiac and mediastinal contours are normal. Mildly progressive diffuse idiopathic skeletal hyperostosis is present within the thoracic spine. No vertebral body height loss. Pelvis: A single view of the pelvis is submitted for interpretation. Moderate bilateral hip joint osteoarthritis is present with osteophyte formation. No acute fracture or dislocation. Degenerative changes of the lower lumbar spine are partially visualized. Vascular calcifications are present IMPRESSION: 1. No acute radiographic findings in the chest or pelvis. Dictated by: Dionte Arce MD The radiology attending physician has personally reviewed this study, and had reviewed and/or edited this written report and agrees with it. Electronically signed by: Luis Flower M.D. Pau Butler MD IM XR PROCEDURES Mariaa l Result * Check Sample (07/01/2022 2:00 PM MOBILE EQUIPMENT OPERATOR) ABO Rh A Positive [facility] HCLL OTHER 07/01/2022 2:00 PM MOBILE EQUIPMENT OPERATOR 07/01/2022 2:22 PM MOBILE EQUIPMENT OPERATOR us Kike Forrester MD LAB BLOOD ORDERABLES Fi nal Result [facility] Department [place] [address] * Neuro CT MR Outside Consult (07/01/2022 1:41 PM MOBILE EQUIPMENT OPERATOR) Anatomical Region Laterality Modality N/A Computed Tomogra phy 07/01/2022 1:49 PM MOBILE EQUIPMENT OPERATOR Impressions 07/01/2022 3:35 PM MOBILE EQUIPMENT OPERATOR No acute traumatic cervical spine injury. The findings, conclusions and recommendations within this report do not replace the initial findings, conclusions ??and recommendations made at the facility where the study was performed based upon the imaging and clinical condition at that time. ??Comparison with the prior report and clinical history is necessary. ??The provided images may or may not represent the [facility] source data set and thus may contain changes that may lower the accuracy of this second-opinion interpretation. Dictated by: Patricio Marie M.D. The radiology attending physician has personally reviewed this study, and had reviewed and/or edited this written report and agrees with it. Electronically signed by: Leana Becerra M.D. Narrative 07/01/2022 3:35 PM MOBILE EQUIPMENT OPERATOR EXAMINATION: RADIOLOGY CONSULTATION ON OUTSIDE IMAGING STUDY STUDY INITIALLY PERFORMED: 07/01/2022 at [facility]. TYPE OF STUDY: Multiple CT images of the cervical spine without contrast are provided at the time of this interpretation. CONTRAST ROUTE: No contrast was administered. The protocol was adequate to address the clinical question. The outside final report was not available at the time of this second opinion interpretation. TYPE OF CONSULTATION: Consult on outside imaging study with images submitted through [facility] DATE OF CONSULTATION: 07/01/2022 1:45 PM HISTORY: Fall COMPARISON: None available. FINDINGS: Severe multilevel degenerative changes of the cervical spine with varying levels of degenerative neuroforaminal and spinal canal narrowing. ??No acute cervical spine fracture. ??Craniocervical demonstrates mild degenerative changes without acute traumatic injury. ??Partially imaged cervical soft tissues are unremarkable. Lung apices are unremarkable. ??Imaged airway is unremarkable. ??No acute cervical spine fracture. Procedure Note Leana Becerra MD - 07/01/2022 EXAMINATION: RADIOLOGY CONSULTATION ON OUTSIDE IMAGING STUDY STUDY INITIALLY PERFORMED: 07/01/2022 at [facility]. TYPE OF STUDY: Multiple CT images of the cervical spine without contrast are provided at the time of this interpretation. CONTRAST ROUTE: No contrast was administered. The protocol was adequate to address the clinical question. The outside final report was not available at the time of this second opinion interpretation. TYPE OF CONSULTATION: Consult on outside imaging study with images submitted through [employer] DATE OF CONSULTATION: 07/01/2022 1:45 PM HISTORY: Fall COMPARISON: None available. FINDINGS: Severe multilevel degenerative changes of the cervical spine with varying levels of degenerative neuroforaminal and spinal canal narrowing. No acute cervical spine fracture. Craniocervical demonstrates mild degenerative changes without acute traumatic injury. Partially imaged cervical soft tissues are unremarkable. Lung apices are unremarkable. Imaged airway is unremarkable. No acute cervical spine fracture. IMPRESSION: No acute traumatic cervical spine injury. The findings, conclusions and recommendations within this report do not replace the initial findings, conclusions and recommendations made at the facility where the study was performed based upon the imaging and clinical condition at that time. Comparison with the prior report and clinical history is necessary. The provided images may or may not represent the [place] source data set and thus may contain changes that may lower the accuracy of this second-opinion interpretation. Dictated by: Patricio Marie M.D. The radiology attending physician has personally reviewed this study, and had reviewed and/or edited this written report and agrees with it. Electronically signed by: Leana Becerra M.D. Amador Nam MD IM CT PROCEDURES Final Resu lt * (ABNORMAL) eGFR (07/01/2022 1:38 PM MOBILE EQUIPMENT OPERATOR) [facility] eGFR 71(L) 90 - 130 mL/min/1. 73 m2 [facility] Comment: Interpretive Data Reference Interval Normal ?>/= [...] interpretive data was last reviewed 2021. Blood 07/01/2022 1:38 PM MOBILE EQUIPMENT OPERATOR 07/01/2022 1:50 PM MOBILE EQUIPMENT OPERATOR us Pau Butler MD LAB BLOOD ORDERABLES F inal Result [facility] Department [place] [address] * Differential, auto (07/01/2022 1:38 PM MOBILE EQUIPMENT OPERATOR) Neutrophil abs 6.3 1.7 - 6.5 K/cumm [facility] Imm gran abs 0.0 0.0 - 0.1 K/cumm [facility] Lymphocyte abs 1.3 0.8 - 3.3 K/cumm [facility] Monocyte abs 0.6 0.2 - 0.8 K/cumm [facility] Eosinophil abs 0.2 0.0 - 0.5 K/cumm [facility] Basophil abs 0.0 0.0 - 0.1 K/cumm [facility] Neutrophil pct 74.5 % [facility] Comment: Interpretive Data Percent cell count reference ranges are not reported, since discordance with absolute values may lead to misinterpretation of CBC data. Current Interpretive Data was last revised on 2017. Imm gran pct 0.5 % [facility] Comment: Interpretive Data Percent cell count reference ranges are not reported, since discordance with absolute values may lead to misinterpretation of CBC data. Current Interpretive Data was last revised on 2017. Lymphocyte pct 15.2 % [facility] Comment: Interpretive Data Percent cell count reference ranges are not reported, since discordance with absolute values may lead to misinterpretation of CBC data. Current Interpretive Data was last revised on 2017. Monocyte pct 6.8 % [facility] Comment: Interpretive Data Percent cell count reference ranges are not reported, since discordance with absolute values may lead to misinterpretation of CBC data. Current Interpretive Data was last revised on 2017. Eosinophil pct 2.8 % [facility] Comment: Interpretive Data Percent cell count reference ranges are not reported, since discordance with absolute values may lead to misinterpretation of CBC data. Current Interpretive Data was last revised on 2017. Basophil pct 0.2 % [facility] Comment: Interpretive Data Percent cell count reference ranges are not reported, since discordance with absolute values may lead to misinterpretation of CBC data. Current Interpretive Data was last revised on 2017. Blood 07/01/2022 1:38 PM MOBILE EQUIPMENT OPERATOR 07/01/2022 1:46 PM MOBILE EQUIPMENT OPERATOR Pau Butler MD LAB BLOOD ORDERABLES F inal Result [facility] Department [place] [address] * Type and screen (07/01/2022 1:38 PM MOBILE EQUIPMENT OPERATOR) Mohinder, indirect Negative [facility] ABO Rh A Positive [facility] Blood 07/01/2022 1:38 PM MOBILE EQUIPMENT OPERATOR 07/01/2022 1:52 PM MOBILE EQUIPMENT OPERATOR Narrative [facility] - 07/01/2022 2:39 PM MOBILE EQUIPMENT OPERATOR Has the patient had Daratumumab or Isatuximab in the past 6 months?->Unknown Pau Butler MD LAB BLOOD BANK TEST OR DERABLES Final Result [facility] Department [place] [address] * COVID-19 Coronavirus RNA Nasopharyngeal (07/01/2022 1:38 PM MOBILE EQUIPMENT OPERATOR) COVID-19 RNA Negative Negative [facility] Nasopharyngeal 07/01/2022 1: 38 PM MOBILE EQUIPMENT OPERATOR 07/01/2022 1:48 PM MOBILE EQUIPMENT OPERATOR Narrative [facility] - 07/01/2022 2:22 PM MOBILE EQUIPMENT OPERATOR Is the patient experiencing any symptoms consistent with COVID (eg. Fever, cough, shortness of breath)?->No What is the reason for testing?->Screening prior to urgent surgery, procedure, BMT, immunosuppressive therapy??(Rapid) ??Interpretive data: Synonyms for this test include: PCR and NAAT . ??This test is performed using the [employer] Xpert Xpress plus assay. This is a real-time RT-PCR test intended for the qualitative detection of nucleic acid from the SARS-CoV-2. This assay has been reviewed by the FDA for Emergency Use Authorization (EUA). The performance characteristics have been verified by the performing laboratory. Results must be considered in the clinical context and a negative result does not rule out infection. Interpretive data last revised November 01, 2021. ??Interpretive data: Synonyms for this test include: PCR and NAAT . ??This test is performed using the [employer] Xpert Xpress plus assay. This is a real-time RT-PCR test intended for the qualitative detection of nucleic acid from the SARS-CoV-2. This assay has been reviewed by the FDA for Emergency Use Authorization (EUA). The performance characteristics have been verified by the performing laboratory. Results must be considered in the clinical context and a negative result does not rule out infection. Interpretive data last revised November 01, 2021. Pau Butler MD LAB MICROBIOLOGY - GEN ERAL ORDERABLES Final Result Performing Organization Address [facility] de Phone Number [facility] [place] [address] * aPTT (07/01/2022 1:38 PM MOBILE EQUIPMENT OPERATOR) aPTT 30 27 - 37 sec [facility] Comment: Interpretive Data Therapeutic heparin range: 60.0 - 94.0 seconds. Based on correlation with therapeutic heparin activity range of 0.3-0.7 Units/mL. Current interpretive data was last revised on 2020. Blood 07/01/2022 1:38 PM MOBILE EQUIPMENT OPERATOR 07/01/2022 1:47 PM MOBILE EQUIPMENT OPERATOR Pau Butler MD LAB BLOOD ORDERABLES F inal Result Performing Organization Address [facility] de Phone Number [facility] [place] [address] * Protime-INR (07/01/2022 1:38 PM MOBILE EQUIPMENT OPERATOR) PT 11.6 9.2 - 13.5 sec [facility] INR 1.1 0.9 - 1.2 [facility] Comment: Interpretive data Oral anticoagulant therapeutic ranges: Venous thromboembolism prophylaxis or treatment: 2.0-3.0 CARDIOLOGY Standard range: 2.0-3.0 High-intensity range: 2.5-3.5 Refer to indication-specific guidelines for appropriate target ranges for prosthetic heart valve replacement. Current interpretive data was last revised on 2019. Blood 07/01/2022 1:38 PM MOBILE EQUIPMENT OPERATOR 07/01/2022 1:47 PM MOBILE EQUIPMENT OPERATOR Pau Butler MD LAB BLOOD ORDERABLES F inal Result Performing Organization Address [facility] de Phone Number [facility] [place] [address] * Comprehensive metabolic panel (07/01/2022 1:38 PM MOBILE EQUIPMENT OPERATOR) Sodium 143 135 - 145 mmol/L [facility] Potassium, pl 3.8 3.3 - 4.9 mmol/L [facility] Chloride 104 97 - 110 mmol/L [facility] CO2 29 22 - 32 mmol/L [facility] Anion gap 10 2 - 15 mmol/L [facility] BUN 16 8 - 25 mg/dL [facility] Creatinine 1.06 0.80 - 1.30 mg/dL [facility] Glucose 83 70 - 199 mg/dL [facility] Comment: Interpretive Data Fasting glucose >/= 126 [...] interpretive data was last revised 2022. Calcium 9.1 8.5 - 10.3 mg/dL [facility] Bilirubin, total 0.8 0.1 - 1.2 mg/dL [facility] Protein, pl 6.8 6.5 - 8.5 g/dL [facility] Albumin 4.1 3.5 - 5.0 g/dL [facility] Alk phos 70 40 - 130 Units/L [facility] ALT 22 7 - 55 Units/L [facility] AST 26 10 - 50 Units/L [facility] Blood 07/01/2022 1:3 8 PM MOBILE EQUIPMENT OPERATOR 07/01/2022 1:47 PM MOBILE EQUIPMENT OPERATOR us Pau Butler MD LAB BLOOD ORDERABLES F inal Result [facility] Department [place] [address] * (ABNORMAL) CBC with auto differential (07/01/2022 1:38 PM MOBILE EQUIPMENT OPERATOR) WBC 8.5 3.8 - 9.9 K/cumm [facility] Hgb 14.9 13.0 - 17.5 g/dL [facility] Hct 43.6 38.9 - 50.3 % [facility] Plt 143(L) 150 - 400 K/cumm [facility] MPV 11.4 9.1 - 12.3 fL [facility] RBC 4.73 4.30 - 5.80 M/cumm [facility] MCV 92.2 81.3 - 96.4 fL [facility] MCH 31.5 27.1 - 33.3 pg [facility] MCHC 34.2 32.3 - 35.7 g/dL [facility] RDW CV 13.4 11.1 - 14.9 % [facility] RDW SD 44.6 35.7 - 48.1 fL [facility] NRBC abs 0.00 0.00 - 0.01 K/cumm [facility] Blood 07/01/2022 1:38 PM MOBILE EQUIPMENT OPERATOR 07/01/2022 1:46 PM MOBILE EQUIPMENT OPERATOR us Pau Butler MD LAB BLOOD ORDERABLES F inal Result [facility] Department [place] [address] * Neuro CT MR Outside Consult (07/01/2022 1:37 PM MOBILE EQUIPMENT OPERATOR) Anatomical Region Laterality Modality N/A Computed Tomogra phy 07/01/2022 1:45 PM MOBILE EQUIPMENT OPERATOR Impressions 07/01/2022 3:35 PM MOBILE EQUIPMENT OPERATOR Acute subdural hemorrhage about the left cerebral convexity The findings, conclusions and recommendations within this report do not replace the initial findings, conclusions ??and recommendations made at the facility where the study was performed based upon the imaging and clinical condition at that time. ??Comparison with the prior report and clinical history is necessary. ??The provided images may or may not represent the [place] source data set and thus may contain changes that may lower the accuracy of this second-opinion interpretation. Dictated by: Patricio Marie M.D. The radiology attending physician has personally reviewed this study, and had reviewed and/or edited this written report and agrees with it. Electronically signed by: Leana Becerra M.D. Narrative 07/01/2022 3:35 PM MOBILE EQUIPMENT OPERATOR EXAMINATION: RADIOLOGY CONSULTATION ON OUTSIDE IMAGING STUDY STUDY INITIALLY PERFORMED: 07/01/2022 at [facility]. TYPE OF STUDY: Multiple CT images of the brain without contrast are provided at the time of this interpretation. CONTRAST ROUTE: No contrast was administered. The protocol was adequate to address the clinical question. The outside final report was not available at the time of this second opinion interpretation. TYPE OF CONSULTATION: Consult on outside imaging study with images submitted through [facility] DATE OF CONSULTATION: 07/01/2022 1:40 PM HISTORY: Fall COMPARISON: 03/18/2020 FINDINGS: Acute subdural hemorrhage about the left cerebral convexity, measuring up to 8 mm in coronal depth. ??Trace subdural blood products additionally seen along the left anterior falx. ??No significant mass effect or midline shift. ??Mild cerebral volume loss noted. ??Mild periventricular hypoattenuation noted, nonspecific, but likely sequela chronic small vessel ischemic changes. ??Washburn-white differentiation is normal. ??The visualized portions of the orbits are normal. ??Visualized paranasal sinuses are unremarkable. ??Mastoid air cells are normal. ??No acute cranial fracture. Procedure Note Leana Becerra MD - 07/01/2022 EXAMINATION: RADIOLOGY CONSULTATION ON OUTSIDE IMAGING STUDY STUDY INITIALLY PERFORMED: 07/01/2022 at [facility]. TYPE OF STUDY: Multiple CT images of the brain without contrast are provided at the time of this interpretation. CONTRAST ROUTE: No contrast was administered. The protocol was adequate to address the clinical question. The outside final report was not available at the time of this second opinion interpretation. TYPE OF CONSULTATION: Consult on outside imaging study with images submitted through [facility] DATE OF CONSULTATION: 07/01/2022 1:40 PM HISTORY: Fall COMPARISON: 03/18/2020 FINDINGS: Acute subdural hemorrhage about the left cerebral convexity, measuring up to 8 mm in coronal depth. Trace subdural blood products additionally seen along the left anterior falx. No significant mass effect or midline shift. Mild cerebral volume loss noted. Mild periventricular hypoattenuation noted, nonspecific, but likely sequela chronic small vessel ischemic changes. Washburn-white differentiation is normal. The visualized portions of the orbits are normal. Visualized paranasal sinuses are unremarkable. Mastoid air cells are normal. No acute cranial fracture. IMPRESSION: Acute subdural hemorrhage about the left cerebral convexity The findings, conclusions and recommendations within this report do not replace the initial findings, conclusions and recommendations made at the facility where the study was performed based upon the imaging and clinical condition at that time. Comparison with the prior report and clinical history is necessary. The provided images may or may not represent the [place] source data set and thus may contain changes that may lower the accuracy of this second-opinion interpretation. Dictated by: Patricio Marie M.D. The radiology attending physician has personally reviewed this study, and had reviewed and/or edited this written report and agrees with it. Electronically signed by: Leana Becerra M.D. Amador Nam MD IMG CT PROCEDURES Final Resu lt * XR Outside Reference (07/01/2022 1:34 PM MOBILE EQUIPMENT OPERATOR) Impressions [facility] - 07/01/2022 1:34 PM MOBILE EQUIPMENT OPERATOR These images are for Reference purposes only and have not been reviewed by [facility]. ??There will be no report generated by a [facility] Radiologist. Narrative [facility] - 07/01/2022 1:34 PM MOBILE EQUIPMENT OPERATOR EXAMINATION: ??Images For Reference Purposes Only Amador Nam MD IMG XR PROCEDURES Final Resu lt [facility] * XR Outside Reference (07/01/2022 1:00 PM MOBILE EQUIPMENT OPERATOR) Impressions [facility] - 07/01/2022 1:00 PM MOBILE EQUIPMENT OPERATOR These images are for Reference purposes only and have not been reviewed by [facility]. ??There will be no report generated by a [facility] Radiologist. Narrative [facility] - 07/01/2022 1:00 PM MOBILE EQUIPMENT OPERATOR EXAMINATION: ??Images For Reference Purposes Only us Amador Nam MD IMG XR PROCEDURES Final Resu lt [facility] documented in this encounter Visit Diagnoses Diagnosis SDH (subdural hematoma) (HCC)- Primary Subdural hemorrhage Diagnosis unknown SDH (subdural hematoma) (HCC) Subdural hemorrhage Frail elderly documented in this encounter Admitting Diagnoses Diagnosis SDH (subdural hematoma) (HCC) Subdural hemorrhage documented in this encounter Administered Medications Inactive Administered Medications - up to 3 most recent administrations Medication Order MAR Action Action Date Dose Rate Site acetaminophen (TYLENOL) tablet 1,000 mg 1,000 mg, oral, Once, On 07/01/22 at 1435, For 1 dose Given 07/01/2022 2:37 PM MOBILE EQUIPMENT OPERATOR 1,000 mg acetaminophen (TYLENOL) tablet 650 mg 650 mg, oral, Every 6 hours, First dose on 07/01/22 at 2215, Indications: PainIndications:Pain Given 07/03/2022 8:28 AM MOBILE EQUIPMENT OPERATOR 650 mg Given 07/02/2022 8:54 PM MOBILE EQUIPMENT OPERATOR 650 mg Given 07/01/2022 10:32 PM MOBILE EQUIPMENT OPERATOR 650 mg cetirizine (ZyrTEC) tablet 10 mg 10 mg, oral, Daily (early AM), First dose on Sat07/02/22 at 0600, Indications: Seasonal Allergic RhinitisIndications:Seasonal Allergic Rhinitis Given 07/03/2022 5:19 AM MOBILE EQUIPMENT OPERATOR 10 mg Given 07/02/2022 5:52 AM MOBILE EQUIPMENT OPERATOR 10 mg famotidine (PEPCID) tablet 40 mg 40 mg, oral, Nightly, First dose on 07/01/22 at 2215, Indications: Heartburn, Heartburn PreventionIndications:Heartburn,Heartburn Prevention Given 07/02/2022 8:53 PM MOBILE EQUIPMENT OPERATOR 40 mg fluticasone propionate (FLONASE) 50 mcg/actuation nasal spray 1 spray 1 spray, each nostril, Daily (early AM), First dose on Sat07/02/22 at 0600, Indications: Chronic Non-Allergic RhinitisIndications:Chronic Non-Allergic Rhinitis Given 07/03/2022 5:21 AM MOBILE EQUIPMENT OPERATOR 1 spray Given 07/02/2022 6:27 AM MOBILE EQUIPMENT OPERATOR 1 spray folic acid (FOLVITE) tablet 1 mg 1 mg, oral, Daily (early AM), First dose on Sat07/02/22 at 0600, Indications: RAIndications:RA Given 07/03/2022 5: 19 AM MOBILE EQUIPMENT OPERATOR 1 mg Given 07/02/2022 5:52 AM MOBILE EQUIPMENT OPERATOR 1 mg hydrOXYzine (ATARAX) tablet 25 mg 25 mg, oral, Every 4 hours PRN, itching, Starting on 07/01/22 at 2138 levETIRAcetam (KEPPRA) 500 mg/100 mL in sodium chloride (premix) 500 mg 500 mg, intravenous, Administer over 15 Minutes, Every 12 hours scheduled, First dose on Sat07/01/22 at 1352, For 7 days, Room temperature only New Bag 07/02/2022 7:50 AM MOBILE EQUIPMENT OPERATOR 500 mg New Bag 07/01/2022 8:55 PM MOBILE EQUIPMENT OPERATOR 500 mg New Bag 07/01/2022 2:37 PM MOBILE EQUIPMENT OPERATOR 500 mg levETIRAcetam (KEPPRA) tablet 500 mg 500 mg, oral, 2 times daily, First dose on Sat07/02/22 at 2100, For 11 doses, May mix with 120 mL of enteral nutrition formula or disperse crushed tablets (500 mg tablet strength studied) in 10 mL of water, shake for 5 minutes to dissolve, and administer immediately via enteral feeding tube Given 07/03/2022 8:29 AM MOBILE EQUIPMENT OPERATOR 500 mg Given 07/02/2022 8:54 PM MOBILE EQUIPMENT OPERATOR 500 mg montelukast (SINGULAIR) tablet 10 mg 10 mg, oral, Nightly, First dose on Sat07/01/22 at 2215, Indications: Maintenance Therapy for AsthmaIndications:Maintenance Therapy for Asthma Given 07/02/2022 8:54 PM MOBILE EQUIPMENT OPERATOR 10 mg Given 07/01/2022 10:32 PM MOBILE EQUIPMENT OPERATOR 10 mg multivitamin with folic acid 400 mcg tablet 1 tablet 1 tablet, oral, Daily, First dose on Sat07/02/22 at 0900, Indications: Vitamin Deficiency PreventionIndications:Vitamin Deficiency Prevention Given 07/03/2022 8:29 AM MOBILE EQUIPMENT OPERATOR 1 tablet Given 07/02/2022 7:50 AM MOBILE EQUIPMENT OPERATOR 1 tablet oxyCODONE (ROXICODONE) tablet 5 mg 5 mg, oral, Every 4 hours PRN, 1st line for pain, Starting on Sat07/01/22 at 2136, For 95 hours, Indications: PainIndications:Pain rOPINIRole (REQUIP) tablet 1 mg 1 mg, oral, Nightly, First dose (after last modification) on 07/01/22 at 1652, Indications: Restless Legs SyndromeIndications:Restless Legs Syndrome Given 07/02/2022 8:53 PM MOBILE EQUIPMENT OPERATOR 1 mg Given 07/01/2022 7:14 PM MOBILE EQUIPMENT OPERATOR 1 mg senna-docusate (PERICOLACE) 8.6-50 mg per tablet 1 tablet 1 tablet, oral, 2 times daily, First dose on 07/02/22 at 0900 Given 07/03/2022 8:29 AM MOBILE EQUIPMENT OPERATOR 1 tablet Given 07/02/2022 8:53 PM MOBILE EQUIPMENT OPERATOR 1 tablet Given 07/02/2022 7:50 AM MOBILE EQUIPMENT OPERATOR 1 tablet documented in this encounter Discontinued Medications Medication Sig Discontinue Reason Start Date End Da te acetaminophen (TYLENOL) 325 mg tabletIndications:Pain Take 2 tablets (650 mg total) by mouth every 6 (six) hours as needed for pain Reorder 07/03/2022 07/03/2022 documented as of this encounter Active and Recently Administered Medications Times are shown in MOBILE EQUIPMENT OPERATOR. Scheduled Medication Order 07/01/2022 07/02/2022 07/03/2022 acetaminophen (TYLENOL) tablet 1,000 mg (COMPLETED) 1,000 mg, oral, Once, On 07/01/22 at 1435, For 1 dose 1437 (Given - Provider: Denise Manriquez RN) acetaminophen (TYLENOL) tablet 650 mg 650 mg, oral, Every 6 hours, First dose on 07/01/22 at 2215, Indications: Pain 2232 (Given - Provider: Kylee Morton RN) 0428 (Not Given - Provider: Kylee Morton RN - Reason: Patient/family refused)1002 (Not Given - Provider: Leana Garcia, GAY - Reason: Patient/family refused)1521 (Not Given - Provider: Leana Garcia, GAY - Reason: Patient/family refused - Comment: patient stated he is not in pain)205 (Given - Provider: Igor Yeboah RN - Comment: pt request) 0411 (Canceled Entry - Provider: Igor Yeboah RN)0828 (Given - Provider: Wilfrido Collado RN) cetirizine (ZyrTEC) tablet 10 mg 10 mg, oral, Daily (early AM), First dose on Sat07/02/22 at 0600, Indications: Seasonal Allergic Rhinitis 0552 (Given - Provider: Kylee Morton RN) 0519 (Given - Provider: Igor Yeboah, GAY) famotidine (PEPCID) tablet 40 mg 40 mg, oral, Nightly, First dose on Sat07/01/22 at 2215, Indications: Heartburn, Heartburn Prevention 2343 (Not Given - Provider: Kylee Morton RN - Reason: Medication not available) 2052 (Given - Provider: Igor Yeboah, RN) fluticasone propionate (FLONASE) 50 mcg/actuation nasal spray 1 spray 1 spray, each nostril, Daily (early AM), First dose on Sat07/02/22 at 0600, Indications: Chronic Non-Allergic Rhinitis 0627 (Given - Provider: Kylee Morton RN) 0521 (Given - Provider: Igor Yeboah, RN) folic acid (FOLVITE) tablet 1 mg 1 mg, oral, Daily (early AM), First dose on Sat07/02/22 at 0600, Indications: RA 0552 (Given - Provider: Kylee Morton RN) 0519 (Given - Provider: Igor Yeboah, GAY) levETIRAcetam (KEPPRA) 500 mg/100 mL in sodium chloride (premix) 500 mg (CANCELED) 500 mg, intravenous, Administer over 15 Minutes, Every 12 hours scheduled, First dose on Sat07/01/22 at 1352, For 7 days, Room temperature only 1437 (New Bag - Provider: Denise Manriquez, GAY)1452 (Stopped - Provider: Denise Manriquez, GAY)2054 (New Bag - Provider: Anita Diaz RN)210 (Stopped - Provider: Ekaterina Del Cid RN) 0750 (New Bag - Provider: Leana Garcia RN) levETIRAcetam (KEPPRA) tablet 500 mg 500 mg, oral, 2 times daily, First dose on Sat07/02/22 at 2100, For 11 doses, May mix with 120 mL of enteral nutrition formula or disperse crushed tablets (500 mg tablet strength studied) in 10 mL of water, shake for 5 minutes to dissolve, and administer immediately via enteral feeding tube 2053 (Given - Provider: Igor Yeboah, RN) 828 (Given - Provider: Wilfrido Collado, GAY) methotrexate tablet 15 mg 15 mg, oral, Weekly, First dose on 07/07/22 at 0900, Indications: Rheumatoid Arthritis montelukast (SINGULAIR) tablet 10 mg 10 mg, oral, Nightly, First dose on 07/01/22 at 2215, Indications: Maintenance Therapy for Asthma 2231 (Given - Provider: Kylee Morton, GAY) 2053 (Given - Provider: Igor Yeboah RN) multivitamin with folic acid 400 mcg tablet 1 tablet 1 tablet, oral, Daily, First dose on Sat07/02/22 at 0900, Indications: Vitamin Deficiency Prevention 0750 (Given - Provider: Leana Garcia, GAY) 828 (Given - Provider: Wilfrido Collado RN) rOPINIRole (REQUIP) tablet 1 mg 1 mg, oral, Nightly, First dose (after last modification) on 07/01/22 at 1652, Indications: Restless Legs Syndrome 1913 (Given - Provider: Ekaterina Del Cid RN) 2052 (Given - Provider: Igor Yeboah, GAY) senna-docusate (PERICOLACE) 8.6-50 mg per tablet 1 tablet 1 tablet, oral, 2 times daily, First dose on Sat07/02/22 at 0900 0750 (Given - Provider: Leana Garcia RN)2052 (Given - Provider: Igor Yeboah, GAY) 08 (Given - Provider: Wilfrido Collado RN) PRN Medication Order 07/01/2022 07/02/2022 07/03/2022 hydrOXYzine (ATARAX) tablet 25 mg 25 mg, oral, Every 4 hours PRN, itching, Starting on 07/01/22 at 2138 oxyCODONE (ROXICODONE) tablet 5 mg 5 mg, oral, Every 4 hours PRN, 1st line for pain, Starting on 07/01/22 at 2136, For 95 hours, Indications: Pain documented in this encounter Orders Medications Ordered That Quinn ht Not Have Been Administered Count Last Ordered Date First Ordered Date hydrOXYzine (ATARAX) tablet 25 mg 1 023 Lactated Ringer's (LR) infusion 1 3 methotrexate tablet 15 mg 1 07/01/2022 oxyCODONE (ROXICODONE) tablet 2.5 mg 1 06/04 oxyCODONE (ROXICODONE) tablet 5 mg 1 2022 rOPINIRole (REQUIP) tablet 1 mg 1 3 Diet Count Last Ordered Date First Orde red Date ADULT DISCHARGE DIET 1 07/03/2022 Nursing Count Last Ordered Date First Orde red Date DISCHARGE ACTIVITY 4 07/03/2022 DISCHARGE CALL PROVIDER 5 07/03/2022 DISCHARGE DRESSING 3 07/03/2022 DISCHARGE INSTRUCTIONS 1 07/03/2022 FOLLOW UP WITH DEPARTMENT 1 07/03/2022 FOLLOW UP WITH ESTABLISHED PROVIDER 1 07/03 PATIENT MAY SHOWER 1 07/03/2022 WEIGHT BEARING STATUS 1 07/03/2022 WEIGH PATIENT 1 07/01/2022 Consult Count Last Ordered Date First Orde red Date IP CONSULT TO NEUROSURGERY 1 07/01/2022 IP CONSULT TO SOCIAL WORK 1 07/01/2022 Admission Count Last Ordered Date First Orde red Date ADMIT TO INPATIENT 1 07/01/2022 Discharge Count Last Ordered Date First Orde red Date DISCHARGE PATIENT 1 07/03/2022 CORE MEASURES Count Last Ordered Date First Ord ered Date REASON FOR NO VTE PROPHYLAXI S - HOSPITAL ADMISSION - MEDICATIONS 1 07/01/2022 documented in this encounter Care Teams Fish Hatchery Superintendent Relationship Specialty [place] [address] [facility] [address] [place] [address] Rheumatology 02/21/17 Lashay Downs, RN Registered Nurse Pain Management 06/17/17 Duke Do, GAY Registered Nurse 09/09/17 Ngozi Petty MD Radiation Oncologist Radiation Oncology 02/05/19 Jose Roberto Marx MD Referring Physician Otolaryngology 02/05/19 documented as of this encounter
--- OUTSIDE RECORDS SUMMARY | 2024-06-14 16:47 | XMS_ITS | Encounter Summary ---
Author Organization [facility] Healthcare Address [address] [place] [address] Care Team Providers Care Infection Control Specialist Name Role Phone Criss Blanco MD Unavailable Lashay Downs RN Unavailable Unavailab Duke Goodwin RN Unavailable UnavailNgozi Husain MD Unavailable [phone] Jose Roberto Marx MD Unavailable [phone] Grey Tomas MD Primary Care Provider [phone] Reason for Referral * Diagnostic Imaging (Routine) - Closed Specialty Diagnoses / Procedures Referred By Contac t Referred To Contact Diagnoses Lumbar spondylosis Procedures XR Spine Lumbar Ap Lat Flex Ext min 4 Views Baldo Bailey PA [address] [place] [address] Phone: tel: fax: [address] [address] Referral ID Status Reason Start Date Expiration Date Visits Re quested Visits Authorized [id number] Closed 01/10/2023 02/09/2024 1 1 Reason for Visit * Diagnostic Imaging (Routine) - Closed Specialty Diagnoses / Procedures Referred By Contac t Referred To Contact Diagnoses Lumbar spondylosis Procedures XR Spine Lumbar Ap Lat Flex Ext min 4 Views Baldo Bailey PA [address] [place] [address] Phone: tel: fax: [facility] [address] [address] [phone] Referral ID Status Reason Start Date Expiration Date Visits Re quested Visits Authorized [id number] Closed 01/10/2023 02/09/2024 1 1 Encounter Details Date Type Department Care Team (Latest Contact Info) Description 01/17/2023 12:14 PM CDT - 01/17/2023 11:59 PM CDT Hospital Encounter [id number] Radiology [address] [place] [address] Lumbar spondylosis Discharge Disposition: Discharge to home or self [...] on file 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 Gender Identity Not on file Sexual Orientation Not on file 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 on file Not on natalie e documented as of this encounter Medications at Time of Discharge finasteride (PROSCAR) 5 mg tabletIndications :benign prostatic hyperplasia with lower urinary tract sx Take 1 tablet (5 mg total) by mouth senior trainer before breakfast multivitamin capsuleIndication s:Vitamin Deficiency Prevention [...] needed for pain 31 tablet 07/03/2022 3 amoxicillin-clavu lanate (AUGMENTIN) 875-125 mg per tablet Take 1 tablet by mouth every 12 (twelve) hours 12/24/2022 3 azelastine (ASTELIN) 137 mcg (0.1 %) nasal spray 2 sprays 2 (two) times a day 09/17/2022 3 budesonide-glycop yr-formoterol (Breztri Aerosphere) 160-9-4.8 mcg/actuation HFA aerosol inhaler Inhale 2 puffs every 12 hours 08/29/2022 3 cetirizine (ZyrTEC) 10 mg tablet Take 10 mg by mouth senior trainer before breakfast 3 famotidine (PEPCID) 40 mg tablet Take 1 tablet (40 mg total) by mouth nightly 03/28/2020 3 fluticasone propionate (FLONASE) 50 mcg/actuation nasal spray Administer 1 spray into each nostril senior trainer before breakfast 04/12/2022 3 folic acid (FOLVITE) 1 mg tablet Take 1 tablet (1 mg total) by mouth senior trainer before breakfast 3 hydrOXYchloroQUIN E (PLAQUENIL) 200 mg tablet Take 2 tablets (400 mg total) by mouth daily Hasn't started taking yet. Awaiting Rheum. appointment 12/17/2022 4 levETIRAcetam (KEPPRA) 500 mg tablet Take 1 tablet (500 mg total) by mouth 2 (two) times a day for 11 doses 11 tablet 07/03/2022 3 methotrexate 2.5 mg tablet Take 6 tablets (15 mg total) by mouth once a week saturday02/02/2020 3 montelukast (SINGULAIR) 10 mg tablet Take 10 mg by mouth nightly 04/12/2022 3 Mucinex D 60-600 mg per 12 hr tablet TAKE 1 TABLET BY MOUTH TWICE DAILY NEEDED FOR COLD SYMPTOMS 08/02/[address] (EC NAPROSYN) 500 mg EC tablet Take 1 tablet (500 mg total) by mouth 2 (two) times a day 10/09/2022 3 olopatadine-momet asone (Ryaltris) 665-25 mcg/spray spray,non-aerosol Administer 2 sprays into affected nostril(s) every 12 hours 08/29/2022 3 omeprazole (PriLOSEC) 20 mg capsule Take 2 capsules (40 mg total) by mouth senior trainer before breakfast 3 oxyCODONE (ROXICODONE) 5 mg immediate release tablet Take 1 tablet (5 mg total) by mouth every 4 (four) hours as needed for pain 7 tablet 05/07/2022 3 pramipexole (MIRAPEX) 0.25 mg tablet Take 1 tablet (0.25 mg total) by mouth nightly at bedtime 12/26/2022 3 predniSONE (DELTASONE) 20 mg tabletIndications :Right Achilles tendinitis Take 2 tablets (40 mg) by mouth daily 10 tablet 10/04/2022 3 rOPINIRole (REQUIP) 1 mg tablet Take [...] Reduce the likelihood of falling Lifestyle Svetlana Puentes RN Note: Below are four things you [...] on stairs Contact your local community or [facility] for information on exercise, fall prevention programs, or options for improving home safety. documented as of this encounter Procedures Procedure Name Priority Date/Time Associated Diagnosis Comments XR LUMBAR SPINE AP LAT FLEX EX Schedule Routine, Read Routine (OP Routine) 01/17/2023 12:24 PM CDT Lumbar spondylosis documented in this encounter Results * XR Spine Lumbar Ap Lat Flex Ext min 4 Views (01/17/2023 12:24 PM CDT) Anatomical Region Laterality Modality L-spine N/A Computed Radiogr aphy 01/17/2023 1:13 PM CDT Impressions 01/17/2023 2:06 PM CDT 1. ??Unchanged mild multilevel degenerative disc disease and moderate facet arthrosis of the lumbar spine. ?? Dictated by: Luis Bryant MD The radiology attending physician has personally reviewed this study, and had reviewed and/or edited this written report and agrees with it. Electronically signed by: Michael Darling MD Narrative 01/17/2023 2:06 PM CDT EXAM: 1. ??XR SPINE LUMBAR AP LAT FLEX EXT MIN 4 VIEWS HISTORY: lumbar pain COMPARISON: Lumbar spine radiographs, 10/10/2022. FINDINGS: 4 radiographs of lumbar spine were obtained. No acute fracture. ??There is unchanged mild retrolisthesis of L1 on L2 and L2 on L3. ??Mild diffuse multilevel degenerative disc disease is seen. ??Moderate lower lumbar facet arthrosis is present. Procedure Note Michael Darling MD - 01/17/2023 EXAM: 1. XR SPINE LUMBAR AP LAT FLEX EXT MIN 4 VIEWS HISTORY: lumbar pain COMPARISON: Lumbar spine radiographs, 10/10/2022. FINDINGS: 4 radiographs of lumbar spine were obtained. No acute fracture. There is unchanged mild retrolisthesis of L1 on L2 and L2 on L3. Mild diffuse multilevel degenerative disc disease is seen. Moderate lower lumbar facet arthrosis is present. IMPRESSION: 1. 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 Dictated by: Luis Bryant MD The radiology attending physician has personally reviewed this study, and had reviewed and/or edited this written report and agrees with it. Electronically signed by: Michael Darlnig MD us Baldo Floyd [facility] IMG XR PROCEDURES Final R esult documented in this encounter Visit Diagnoses Diagnosis Lumbar spondylosis Lumbosacral spondylosis without myelopathy documented in this encounter Care Teams Infection Control Specialist Relationship Specialty Start Date End Date Grey Tomas MD PCP - General Family Practice 07/27/22 [place] [id number] [address] Rheumatology 02/21/17 Lashay Downs, GAY Registered Nurse Pain Management 06/17/17 Duke Do, RN Registered Nurse 09/09/17 Ngozi Petty MD Radiation Oncologist Radiation Oncology 02/05/19 Jose Roberto Marx MD Referring Physician Otolaryngology 02/05/19 documented as of this encounter
--- OUTSIDE RECORDS SUMMARY | 2024-06-14 16:47 | XMS_ITS | Encounter Summary ---
Author Organization [facility] Address [address] [place] [address] Care Team Providers Care Commercial Management Accountant Name Role Phone Criss Blanco MD Unavailable Lashay Downs RN Unavailable Unavailab Duke Goodwin RN Unavailable UnavailNgozi Husain MD Unavailable [phone] Jose Roberto Marx MD Unavailable [phone] Grey Tomas MD Primary Care Provider [phone] Reason for Visit * Reason Comments Tendonitis Achilles tendon pain started yesterday. 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 on file Not on natalie e documented as of this encounter Last Filed Vital Signs Vital Sign Reading Time Taken Comments Blood Pressure 124/84 10/04/2022 12:19 PM CDT Pulse 69 10/04/2022 12:19 PM CDT Temperature 36.9 ??C (98.4 ??F) 10/04/2022 12:19 PM C DT Respiratory Rate 14 10/04/2022 12:19 PM CDT Oxygen Saturation 98% 10/04/2022 12:19 PM CDT Inhaled Oxygen Concentration - - Weight 95.3 kg (210 lb) 10/04/2022 12:19 PM CDT Height 185.4 cm (6' 1 ) 10/04/2022 12:19 PM CDT Body Mass Index 27.71 10/04/2022 12:19 PM CDT documented in this encounter Patient Instructions * Patient Instructions* Claire Loyd NP - 10/04/2022 12:15 PM CDT Steroids Tylenol Ice Follow up w PCP if needed * Attachments The following attachments cannot be sent through Care Everywhere. * Achilles Tendinitis (General Information) (Yakut) documented in this encounter Ordered Prescriptions Prescription Sig Dispense Quantity Refills Last Filled Start Date End Date predniSONE (DELTASONE) 20 mg tabletIndications: Right Achilles tendinitis Take 2 tablets (40 mg) by mouth daily 10 tablet 10/04/2022 documented in this encounter Progress Notes * Claire Loyd NP - 10/04/2022 12:15 PM CDT Images from the original note were not included. Subjective/Objective Patient ID: Samuel Sanchez is a 77 y.o. male. Chief Complaint Tendonitis (Achilles tendon pain started yesterday. ) Presents to clinic for right heel tenderness after mowing grass yesterday. He has not taken any OTCmeds. Hurts to flex & walk. Denies injury. Review of Systems Constitutional: Negative for chills, fatigue and fever. HENT: Negative for congestion, postnasal drip, rhinorrhea and sore throat. Respiratory: Negative for cough and shortness of breath. Gastrointestinal: Negative for nausea and vomiting. Musculoskeletal: Negative for myalgias. Achilles tendon pain Neurological: Negative for headaches. Physical Exam Vitals reviewed. Constitutional: Appearance: Normal appearance. He is not ill-appearing. HENT: Head: Normocephalic. Mouth/Throat: Pharynx: Oropharynx is clear. Cardiovascular: Rate and Rhythm: Normal rate. Pulmonary: Effort: Pulmonary effort is normal. Breath sounds: Normal breath sounds. Musculoskeletal: General: Normal range of motion. Right ankle: Right Achilles Tendon: Tenderness present. Skin: General: Skin is warm and dry. Neurological: Mental Status: He is alert and oriented to person, place, and time. Mental status is at baseline. Psychiatric: Mood and Affect: Mood normal. Behavior: Behavior normal. Thought Content: Thought content normal. Judgment: Judgment normal. Vitals: 10/04/22 1219 BP: 124/84 Pulse: 69 Resp: 14 Temp: 36.9 ??C (98.4 ??F) SpO2: 98% Weight: 95.3 kg (210 lb) Height: 185.4 cm (6' 1 ) Assessment/Plan Steroids Tylenol Ice Follow up w PCP if needed Diagnoses and all orders for this visit: Right Achilles tendinitis (Primary) - predniSONE (DELTASONE) 20 mg tablet; Take 2 tablets (40 mg) by mouth daily No results found for this or any [...] on stairs Contact your local community or [facility] for information on exercise, fall prevention programs, or options for improving home safety. documented as of this encounter Visit Diagnoses Diagnosis Right Achilles tendinitis- Primary documented in this encounter Historical Medications * This list may reflect changes made after this encounter. omeprazole (PriLOSEC) 40 mg capsule Take 1 capsule (40 mg total) by mouth every morning 08/13/2022 added in this encounter Care Teams Commercial Management Accountant Relationship Specialty Start Date End Date Grey Tomas MD PCP - General Family Practice 07/27/22 [place] [id number] [address] Rheumatology 02/21/17 Lashay Dowsn, RN Registered Nurse Pain Management 06/17/17 Duke Do, RN Registered Nurse 09/09/17 Ngozi Petty MD Radiation Oncologist Radiation Oncology 02/05/19 Jose Roberto Marx MD Referring Physician Otolaryngology 02/05/19 documented as of this encounter
--- OUTSIDE RECORDS SUMMARY | 2024-06-14 16:47 | XMS_ITS | Encounter Summary ---
Author Organization [facility] Address [address] [place] [address] Care Team Providers Care Automotive Design Layout Drafter Name Role Phone Criss Blanco MD Unavailable Lashay Downs RN Unavailable Unavailab Duke Goodwin RN Unavailable UnavailNgozi Husain MD Unavailable [phone] Jose Roberto Marx MD Unavailable [phone] Reason for Visit * Diagnostic Imaging (Routine) - Closed Specialty Diagnoses / Procedures Referred By Contac t Referred To Contact Diagnoses Left shoulder pain, unspecified chronicity Procedures XR Shoulder Left 2 or More Views Uriah Calix, JOSEPH [address] [place] [address] [address] [address] Phone: tel: fax: [facility] Referral ID Status Reason Start Date Expiration Date Visits Re quested Visits Authorized [id number] Closed 07/13/2022 08/12/2023 1 1 Encounter Details Date Type Department Care Team (Latest Contact Info) Description 07/13/2022 7:46 AM BORDER MEASURER - 07/13/2022 11:59 PM BORDER MEASURER Hospital Encounter [facility] Orthopedics and Sports Medicine [address] [facility] [address] [id number] Discharge Disposition: Discharge to home or self [...] on file Legal Sex Male 12:56 AM BORDER MEASURER Gender Identity Not on file Sexual Orientation Not on file 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 on 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 Not on natalie e documented as of this encounter Medications at Time of Discharge finasteride (PROSCAR) 5 mg tabletIndications :benign prostatic hyperplasia with lower urinary tract sx Take 1 tablet (5 mg total) by mouth ribbon winder before breakfast multivitamin capsuleIndication s:Vitamin Deficiency Prevention Take 1 capsule by mouth every morning vit A/vit C/vit E/zinc/copper (PRESERVISION AREDS ORAL) Take 1 capsule by mouth 2 (two) times a day acetaminophen (TYLENOL) 325 mg tabletIndications :Pain Take 2 tablets (650 mg total) by mouth every 6 (six) hours as needed for pain 31 tablet 07/03/2022 3 cetirizine (ZyrTEC) 10 mg tablet Take 10 mg by mouth ribbon winder before breakfast 3 famotidine (PEPCID) 40 mg tablet Take 1 tablet (40 mg total) by mouth nightly 03/28/2020 3 fluticasone propionate (FLONASE) 50 mcg/actuation nasal spray Administer 1 spray into each nostril ribbon winder before breakfast 04/12/2022 3 folic acid (FOLVITE) 1 mg tablet Take 1 tablet (1 mg total) by mouth ribbon winder before breakfast 3 levETIRAcetam (KEPPRA) 500 mg [...] 2 capsules (40 mg total) by mouth ribbon winder before breakfast 3 oxyCODONE (ROXICODONE) 5 mg [...] stairs Contact your local community or [facility] for information on exercise, fall prevention programs, or options for improving home safety. documented as of this encounter Procedures Procedure Name Priority Date/Time Associated Diagnosis Comments XR SHOULDER LEFT 2 OR MORE VIEWS Routine 07/13/2022 10:44 AM BORDER MEASURER Left shoulder pain, unspecified chronicity documented in this encounter Results * XR Shoulder Left 2 or More Views (07/13/2022 10:44 AM BORDER MEASURER) Anatomical Region Laterality Modality Upper Extremities, Shoulder Left Digi demetria Radiography Narrative 07/13/2022 11:27 AM BORDER MEASURER X-rays of the shoulder demonstrate no fracture subluxation or osseous lesions. Moderate AC and GH DJD noted. Uriah Calix PATENT SOLICITOR IMG XR PROCEDURES Final Result documented in this encounter Visit Diagnoses Not on filedocumented in this encounter Care Teams Automotive Design Layout Drafter Relationship Specialty [place] [address] [facility] [address] [place] [address] Rheumatology 02/21/17 Lashay Downs, RN Registered Nurse Pain Management 06/17/17 Duke Do, RN Registered Nurse 09/09/17 Ngozi Petty MD Radiation Oncologist Radiation Oncology 02/05/19 Jose Roberto Marx MD Referring Physician Otolaryngology 02/05/19 documented as of this encounter
--- OUTSIDE RECORDS SUMMARY | 2024-06-14 16:47 | XMS_ITS | Encounter Summary ---
Author Organization [facility] Address [address] [address] Care Team Providers Care Radiologic Electronic Specialist Name Role Phone Criss Blanco MD Unavailable Lashay Downs RN Unavailable Unavailab Duke Goodwin RN Unavailable UnavailNgozi Husain MD Unavailable [phone] Jose Roberto Marx MD Unavailable [phone] Reason for Referral * Procedure (Routine) - Closed Specialty Diagnoses / Procedures Referred By Contac t Referred To Contact Diagnoses Impingement syndrome of left shoulder Procedures Large Joint (Hip, Knee, Shoulder) Injection: L subacromial bursa Uriah Calix NP [address] [place] [address] Phone: tel: fax: [facility] Referral ID Status Reason Start Date Expiration Date Visits Re quested Visits Authorized [id number] Closed 07/13/2022 08/12/2023 1 1 GORY MANAGER * Diagnostic Imaging (Routine) - Closed Specialty Diagnoses / Procedures Referred By Contac t Referred To Contact Diagnoses Left shoulder pain, unspecified chronicity Procedures XR Shoulder Left 2 or More Views Uriah Calix NP [address] [place] [address] [address] [place] [address] Phone: tel: fax: [facility] Referral ID Status Reason Start Date Expiration Date Visits Re quested Visits Authorized [id number] Closed 07/13/2022 08/12/2023 1 1 GORY MANAGER Reason for Visit * Reason Comments Pain Encounter Details Date Type Department Care Team (Late st Contact Info) Description 07/13/2022 11:15 AM CATEGORY MANAGER Office Visit [facility] Orthopedics and Sports Medicine [address] [facility] [address] [place] [address] Uriah Calix NP [address] [facility] [address] [place] [address] Left shoulder pain, unspecified chronicity (Primary Dx); Impingement syndrome of left shoulder; Rotator cuff insufficiency of left shoulder Social History Tobacco Use Types Packs/Day Years [...] on file Legal Sex Male 12:56 AM CATEGORY MANAGER Gender Identity Not on file Sexual Orientation Not on file 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 on file Not on natalie e documented as of this encounter Last Filed Vital Signs Vital Sign Reading Time Taken Comments Blood Pressure 110/81 07/13/2022 10:53 AM CATEGORY MANAGER Pulse 72 07/13/2022 10:53 AM CATEGORY MANAGER Temperature - - Respiratory Rate - - Oxygen Saturation - - Inhaled Oxygen Concentration - - Weight 100.2 kg (221 lb) 07/13/2022 10:53 AM CATEGORY MANAGER Height 185.4 cm (6' 1 ) 07/13/2022 10:53 AM CATEGORY MANAGER Body Mass Index 29.16 07/13/2022 10:53 AM CATEGORY MANAGER documented in this encounter Progress Notes * Uriah Calix, INJECTION MOLD TOOLING TECHNICIAN - 07/13/2022 11:15 AM CSTAssociated Order(s): Large Joint (Hip, Knee, Shoulder) Injection: L subacromial bursa Post-Procedure Diagnose(s): Impingement syndrome of left shoulder Images from the original note were not included. Progress Note Patient: Samuel Sanchez ( - 1945) is a 77 y.o. male. Visit Date: 07/13/2022 Chief Complaint Patient presents with ??? Left Shoulder - Pain History of Present Illness: Patient is here with complaint of left shoulder pain. Patient states that this started approximately several months ago. Patient states he is unsure what started this problem. Patient describes the pain as a sharp pain that is moderate in severity. Rest makes the pain better. Use or sleeping on it makes the pain worse. Patient has tried nothing for conservative care. This is evaluated as a personal injury. Past Medical History: Past Medical History: Diagnosis Date ??? Allergic rhinitis ??? Arthritis arthritis ??? Calculus of kidney Nephrolithiasis ??? 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 Depression ??? Gastric reflux ??? Gastroesophageal reflux disease acid reflux ??? Headache, tension-type ??? History of multiple allergies allergies ??? HX OTHER MEDICAL 1980 L shoulder ??? HX OTHER MEDICAL 1981 R shoulder ??? HX OTHER MEDICAL 1985 R shoulder bone spurs ??? HX OTHER MEDICAL 1962 ear drum patch ??? HX OTHER MEDICAL 1977 testicle ??? HX OTHER MEDICAL Headache, migraine ??? HX OTHER MEDICAL 1980 Bisept tendonitis ??? HX OTHER MEDICAL 1993 Pinched Prostate ??? HX OTHER MEDICAL 2000 kidney stone ??? HX OTHER MEDICAL hemorroids; Comments: Had done at [facility] in [place] ??? HX OTHER MEDICAL bladder infection ??? HX OTHER MEDICAL kidney stone ??? Low back pain ??? Migraine ??? Rheumatoid arthritis (HCC) Current Medications: Current Outpatient Medications Medication Sig Dispense Refill ??? cetirizine (ZyrTEC) 10 mg tablet Take 10 mg by mouth dictating machine mechanic before breakfast ??? famotidine (PEPCID) 40 mg tablet Take 40 mg by mouth nightly ??? finasteride (PROSCAR) 5 mg tablet Take 5 mg by mouth dictating machine mechanic before breakfast ??? methotrexate 2.5 mg tablet Take 6 tablets by mouth once a week saturday ??? montelukast (SINGULAIR) 10 mg tablet Take 10 mg by mouth nightly ??? multivitamin capsule Take 1 capsule by mouth every morning ??? omeprazole (PriLOSEC) 20 mg capsule Take 40 mg by mouth dictating machine mechanic before breakfast ??? rOPINIRole (REQUIP) 1 mg tablet Take 1 mg by mouth nightly ??? UNABLE TO FIND Take 1 each by mouth nightly as needed THC gummie-25mg ??? acetaminophen (TYLENOL) 325 mg tablet Take 2 tablets (650 mg total) by mouth every 6 (six) hours as needed for pain (Patient not taking: Reported on 07/13/2022) 31 tablet 0 ??? fluticasone propionate (FLONASE) 50 mcg/actuation nasal spray Administer 1 spray into each nostril dictating machine mechanic before breakfast (Patient not taking: Reported on 07/13/2022) ??? folic acid (FOLVITE) 1 mg tablet Take 1 mg by mouth dictating machine mechanic before breakfast (Patient nottaking: Reported on 07/13/2022) ??? levETIRAcetam (KEPPRA) 500 mg tablet Take 1 tablet (500 mg total) by mouth 2 (two) times a day for 11 doses 11 tablet 0 ??? oxyCODONE (ROXICODONE) 5 mg immediate release tablet Take 1 tablet (5 mg total) by mouth every 4 (four) hours as needed for pain (Patient not taking: Reported on 07/13/2022) 7 tablet 0 ??? senna-docusate (PERICOLACE) 8.6-50 mg Take 1 tablet by mouth 2 (two) times a day (Patient not taking: Reported on 07/13/2022) 20 tablet 0 ??? vit A/vit C/vit E/zinc/copper (PRESERVISION AREDS ORAL) Take 1 capsule by mouth 2 (two) times aday (Patient not taking: Reported on 07/13/2022) No current facility-administered medications for this visit. Family History: Family History Adopted: Yes Problem Relation Age of Onset ??? Other Other adopted ??? Other Other adopted ??? Anesthesia problems Neg Hx Social History: Tobacco Use: Medium Risk ??? Smoking Tobacco Use: Former ??? Smokeless Tobacco Use: Never ??? Passive Exposure: Not on file Review of Systems: Review of Systems Constitutional: Negative for activity change, appetite change, chills, fever and unexpected weight change. HENT: Negative for congestion, dental problem, ear pain, hearing loss, nosebleeds, tinnitus and voice change. Eyes: Negative for pain and visual disturbance. Respiratory: Positive for cough. Negative for apnea, chest tightness and shortness of breath. Cardiovascular: Negative for chest pain, palpitations and leg swelling. Gastrointestinal: Negative for blood in stool, constipation, diarrhea, nausea and vomiting. Endocrine: Negative for cold intolerance and heat intolerance. Genitourinary: Negative for difficulty urinating, hematuria and urgency. Skin: Negative for color change, rash and wound. Allergic/Immunologic: Positive for environmental allergies. Neurological: Positive for headaches. Negative for dizziness, syncope and numbness. Hematological: Negative for adenopathy. Does not bruise/bleed easily. Psychiatric/Behavioral: Negative for confusion. The patient is not nervous/anxious and is not hyperactive. Physical Exam: Vitals: 07/13/22 1053 BP: 110/81 Pulse: 72 Weight: 100.2 kg (221 lb) Height: 185.4 cm (6' 1 ) Right shoulder The patient has normal inspection, palpation, range of motion, strength, and stability of the rightshoulder. Left shoulder Inspection The patient has normal inspection of the left shoulder. Palpation Tenderness is present. The patient has tenderness in the lateral shoulder area(s). Range of motion The patient has normal range of motion of the left shoulder. The patient has pain with range of motion of the left shoulder. Stability The patient has normal stability of the left shoulder. Strength Abduction: 4/5 and painful External rotation: 4/5 and painful Bicep: 4/5 and painful Neurovascular The patient has normal vascular on the left side of their body. The patient has normal sensation on the left side of their body. Tests Belly press: negative Cross arm: positive Drop arm: negative Orville's: orville's Bannock's: positive Speed's: positive Imaging Findings: Large Joint (Hip, Knee, Shoulder) Injection: L subacromial bursa Performed by: Uriah Calix NP Authorized by: Uriah Calix NP Large Joint Injection/Aspiration: Consent Given by: Patient Timeout: prior to procedure the correct patient, procedure, and site was verified Verbal consent obtained: Yes Supporting Documentation: Indications: Pain Procedure Details: Location: Shoulder Site: L subacromial bursa Prep: patient was prepped using a clean technique Needle Size: 22 G Approach: Posterior Ultrasound guided: No Medications: 80 mg methylPREDNISolone acetate 80 mg/mL; 2 mL lidocaine 20 mg/mL (2 %) Patient tolerance: Patient tolerated the procedure well with no immediate complications Assessment and Plan: Diagnoses and all orders for this visit: Left shoulder pain, unspecified chronicity (Primary) - XR Shoulder Left 2 or More Views 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 Rendering Provider & Department: Uriah Calix NP [facility] ORTHOPEDICS AND SPORTS MEDICINE [address] [place] [id number] July 13, 2022 11:24 AM GORY MANAGER documented in this encounter Miscellaneous Notes * Addendum Note - Lanette Meek MA - 07/13/2022 11:15 AM CSTAddended by: LANETTE MEEK on: 07/13/2022 11:54 AM Modules accepted: Orders GORY MANAGER documented in this encounter Plan of [...] on stairs Contact your local community or [facility] for information on exercise, fall prevention programs, or options for improving home safety. documented as of this encounter Procedures Procedure Name Priority Date/Time Associated Diagnosis Comments LA ARTHROCENTESIS ASPIR&/INJ MAJOR JT/BURSA W/O US Routine 07/13/2022 11:15 AM CATEGORY MANAGER Impingement syndrome of left shoulder XR SHOULDER LEFT 2 OR MORE VIEWS Routine 07/13/2022 10:44 AM CATEGORY MANAGER Left shoulder pain, unspecified chronicity documented in this encounter Results * LA ARTHROCENTESIS ASPIR&/INJ MAJOR JT/BURSA W/O US (07/13/2022 11:15 AM CATEGORY MANAGER) Narrative Uriah Calix NP - 07/13/2022 11:15 AM CATEGORY MANAGER Uriah Calix NP ? 07/13/2022 11:27 AM Large Joint (Hip, Knee, Shoulder) Injection: L subacromial bursa Performed by: Uriah Calix NP Authorized by: Uriah Calix NP Large Joint Injection/Aspiration: ??Consent Given by: ??Patient ??Timeout: prior to procedure the correct patient, procedure, and site was verified ?Verbal consent obtained: Yes ?? Supporting Documentation: ??Indications: ??Pain Procedure Details: ??Location: ??Shoulder ??Site: ??L subacromial bursa ??Prep: patient was prepped using a clean technique ?Needle Size: ??22 G ??Approach: ??Posterior ??Ultrasound guided: No ?Medications: ??80 mg methylPREDNISolone acetate 80 mg/mL; 2 mL lidocaine 20 mg/mL (2 %) ??Patient tolerance: ??Patient tolerated the procedure well with no immediate complications Uriha Calix INJECTION MOLD TOOLING TECHNICIAN IN CLINIC/BEDSIDE ORDERA BLES Final Result * XR Shoulder Left 2 or More Views (07/13/2022 10:44 AM CATEGORY MANAGER) Anatomical Region Laterality Modality Upper Extremities, Shoulder Left Digi demetria Radiography Narrative 07/13/2022 11:27 AM CATEGORY MANAGER X-rays of the shoulder demonstrate no fracture subluxation or osseous lesions. Moderate AC and GH DJD noted. 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 documented in this encounter Administered Medications Inactive Administered Medications - up to 3 most recent administrations Medication Order MAR Action Action Date Dose Rate Site lidocaine (XYLOCAINE) 20 mg/mL (2 %) injection 2 mL 2 mL, One-Time Injection, Starting on Sat07/13/22 at 1126, For 1 dose, Indications: Administration of Local AnesthesiaIndications:Adminis tration of Local Anesthesia Given 07/13/2022 11:26 AM CATEGORY MANAGER 2 mL Left Shoulder methylPREDNISolone acetate (DEPO-medrol) injection 80 mg 80 mg, intra-articular, One-Time Injection, Starting on Sat07/13/22 at 1126, For 1 doseIndications:Impingement syndrome of left shoulder Given 07/13/2022 11:26 AM CATEGORY MANAGER 80 mg Left Shoulder documented in this encounter Care Teams Radiologic Electronic Specialist Relationship Specialty [place] [id number] [address] Rheumatology 02/21/17 Lashay Downs, GAY Registered Nurse Pain Management 06/17/17 Duke Do, GAY Registered Nurse 09/09/17 Ngozi Ptety MD Radiation Oncologist Radiation Oncology 02/05/19 Jose Roberto Marx MD Referring Physician Otolaryngology 02/05/19 documented as of this encounter
--- OUTSIDE RECORDS SUMMARY | 2024-06-14 16:47 | XMS_ITS | Encounter Summary ---
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 Operating Room [address] [address] Nakita Herrera MD [address] [place] [address] MICROLARYNGOSCOPY WITH BIOPSY/EXCISION LESION Surgery Details Date/Time Status Location OR Service Patient Class Case Class Case Type Trauma Case? 05/07/2022 8:55 AM Posted [facility] OPERATING ROOM OR Otolaryngology Outpatient Elective Panel 1 Procedure LRB Anes Op Region Wound Class Comments MICROLARYNGOSCOPY WITH BIOPSY/EXCISION LESION N/A General Throat Class II - Clean Contaminated LASER KTP N/A General Class II - Lul an Contaminated Surgeon Surgeon Role Service Panel Nakita Herrera MD Primary Otolaryngol ogy 1 Mandy Nielsen MD Resident - Assisting Otolaryngolog y 1 Special Needs dedo excalibur, ossoff pilling, KTP laser documented in this encounter Social History Tobacco [...] on file Legal Sex Male 12:56 AM UI UX ENGINEER Gender Identity Not on file Sexual Orientation Not on file 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 on file Not on natalie e documented as of this encounter Last Filed Vital Signs Vital Sign Reading Time Taken Comments Blood Pressure 127/68 05/07/2022 10:20 AM UI UX ENGINEER Pulse 75 05/07/2022 10:20 AM UI UX ENGINEER Temperature 36.2 ??C (97.2 ??F) 05/07/2022 10:[address] Respiratory Rate 17 05/07/2022 10:20 AM UI UX ENGINEER Oxygen Saturation 92% 05/07/2022 10:20 AM UI UX ENGINEER Inhaled Oxygen Concentration - - Weight 98 kg (216 lb) 05/07/2022 7:26 AM UI UX ENGINEER Height 185.4 cm (6' 1 ) 05/07/2022 7:26 AM UI UX ENGINEER Body Mass Index 28.5 05/07/2022 7:26 AM UI UX ENGINEER documented in this encounter Discharge Instructions * Discharge Instructions* Margareth Flores RN - 05/07/2022 8:12 AM UI UX ENGINEER ENT Post Operative Discharge Instructions Procedure: Direct laryngoscopy with biopsy, KTP laser treatment What to expect: You will have sore throat that can last up to two weeks. Staying hydrated will help with the pain. An ice or cold pack placed against the throat may be beneficial, as well. Pain usually increases over the first 2-3 days after surgery and stays intense until 7-10 days, then will start to gradually get better. as part of the normal recovery process. If pain is ever so bad that you feel it is unbearable and you are unable to swallow liquids, you must call our on-call physician immediately. An earache is not uncommon after surgery. This is due to a common nerve to both the ear and the throat, and can be treated with pain medication and hydration. The uvula (the ???thing that hangs down in the middle of the throat?? ) may be swollen after surgery and can cause a gagging sensation. Your tongue may have tingling, bruising or slight numbness. These changes should improve shortly after surgery. Tongue numbness and swelling can occur after surgery Excessive phlegm - this is very common and can be very uncomfortable, especially at night and in the morning. Try to avoid aggressive throat clearing. You can drink water to help loosen the phlegm. Ahumidifier at night can also be helpful. Low grade fever is common as well as cough. Sometimes there is blood tinged secretions and mucous. Occasionally there is a change in voice (raspy) When to call your doctor: You have a fever of more than 101.5. You have persistent nausea and/or vomiting, You feel dizzy or like you may pass out. You have a hard time breathing. You are coughing up blood (more than just some blood tinged secretions/mucous) You have any questions or concerns. Diet: Regular Diet Staying hydrated may help with the pain in your throat Activity: Light activity for the next 24 Hours. Then you may resume normal activity. Do not drive, operative heavy machinery, or make important legal decisions for the next 24 hours. Driving privileges are left up to the discretion of your physician and will be discussed further at your follow up appointment. Showering You may shower normally. Do not smoke tobacco Smoking has been proven to interfere with the normal wound healing. Smoking will dramatically reduce the success rate of your surgery. Your primary care doctor can prescribe a patch to help you stop smoking if you would like. Medications: - Pain: You may have been prescribed Acetaminophen (Tylenol) or you may buy it at any pharmacy or drugstore. You should take Acetaminophen (Tylenol) 650mg every 6 hours for pain. Taking this in addition to your narcotic pain medication will provide greater pain relief. Do not exceed 3g (3000mg) of Tylenol in a 24h period. You may have been prescribed oxycodone or another narcotic medication to help with your pain. You should only use this pain medication to help with pain that is not adequately controlled by tylenol. You should not drive while taking narcotic pain medication. Narcotic pain medication can make you constipated; take a stool softener as needed. - Stool Softener: Take stool softener (Dvoy-vbt-[id number] or prescription) while taking narcotic medication to prevent constipation. Laxatives not recommended. Pathology: Final Pathology will take 7-10 days to result. This should be discussed with you at your scheduled follow up appointment. If for some reason it is not and you have not received a call from the officeto tell you your final pathology within 2 weeks of discharge, please contact the surgeon's nurse atthe number listed below or contact the main office line at [phone]. Follow up: You should follow up in Nakita Eddy MD's clinic as scheduled below. [facility] - [facility] Office Building [address] [place] [address] [address] [address] [address] OTHER FOLLOW UP: 1. PCP - for management of all chronic illnesses Future Appointments Date Time Provider Department Center 2022 10:20 AM Nakita Herrera MD [facility] [address] [facility] Phone numbers Appointment Scheduling: Urgent Concerns after hours or Weekends: Call and ask for the ENT resident conductor yard. During Regular Business Hours (8am-5pm Saturday through Saturday): [phone] Herrera's nurse Questions: If you have any concerns or questions, or develop worrisome symptoms such as worsening pain or swelling, bleeding, fever, or vomiting, call your doctor. You have received anesthesia, therefore, for the next 24 hours and/or while taking narcotic pain medication; -Do NOT drive a vehicle -Do NOT drink alcohol -Do NOT make important personal or business decisions or sign legal documents. Examples of narcotic pain medication include Percocet, Oxycontin, Olla, Hydrocodone, and Oxycodone. FAQs (frequently asked questions) about Surgical Site Infections What is a Surgical Site Infection (SSI)? A surgical site infection is and infection that occurs after surgery in the part of the body where the surgery took place. Most patients who have surgery do not develop an infection. However, infections develop in about 1 to 3 out of every 100 patients who have surgery. Some of the common symptoms fo a surgical site infection are: Redness and pain around the area where you had surgery Drainage of cloudy fluid from your surgical wound Fever Can SSIs be treated? Yes. Most surgical site infections can be treated with antibiotics. The antibiotic given to you depends on the bacteria (germs) causing the infection. Sometimes patients with SSIs causing the infection. Sometimes patients with SSIs also need another surgery to treat the infection. What are some of the things that hospitals are doing to prevent SSIs? To prevent SSIs, doctors, nurses, and other healthcare providers: Clean their hands and arms up to their elbows with an antiseptic agent just before the surgery. Clean their hands with soap and water or an alcohol-based hand rub before and after caring for eachpatient. May remove some of your hair immediately before your surgery using electric clippers if the hair isin the same area where the procedure will occur. They should not shave you with a razor. Wear special hair covers, masks, gowns, and gloves during surgery to keep the surgery area clean. Give you antibiotics before your surgery starts. In most cases, you should get antibiotics within 60 minutes before the surgery starts and the antibiotics should be stopped within 24 hours after surgery. Clean the skin at the site of your surgery with a special soap that kills germs. What can I do to help prevent SSIs? Before your surgery: Tell your doctor about other medical problems you may have. Health problems such as allergies, diabetes, and obesity could affect your surgery and your treatment. Quit smoking. Patients who smoke get more infections. Talk to your doctor about how you can quit before your surgery. Do not shave near where you will have surgery. Shaving with a razor can irritate your skin and makeit easier to develop an infection. At the time of your surgery: Speak up if someone tries to shave you with a razor before surgery. Ask why you need to be shaved and talk with your surgeon if you have any concerns. Ask if you will get antibiotics before surgery. After your surgery: Make sure that your healthcare providers clean their hands before examining you, either with soap and water or an alcohol-based hand rub. If you do not see you providers clean their hands, please ask them to do so. Family and friends who visit you should not touch the surgical wound or dressings. Family and friends should clean their hands with soap and water or an alcohol- based hand rub beforeand after visiting You. If you do not see them clean their hands, ask them to clean their hands. What do I need to do when I go home from the hospital? Before you go home, your doctor or nurse should explain everything you need to know about taking care of your wound. Make sure you understand how to care for your wound before you leave the hospital. Always clean your hands before and after caring for your wound. Before you go home, make sure you know who to contact if you have questions or problems after you get home. If you have any symptoms of an infection, such as a redness and pain at the surgery site, drainage,or fever, call your doctor immediately. If you have additional questions, please ask your doctor or nurse. Safety Tips for Preventing Falls at Home Falls happen at home for many reasons. Here are several things that are known to add to your risk of falling: Poor vision or hearing History of falls Use of an assistive device, such as a cane or walker Poor nutrition Certain medications Multiple medications Being older than 65 years of age Conditions in the home, such as slippery floors, loose rugs, cords on the floor If you answer ???yes?? to any of the following questions, please consider discussing your risk of falling with your primary care practitioner: Have you fallen in the last year? Do you feel unsteady when standing or walking? Do you have a fear of falling? If your primary care practitioner recommends physical therapy, we are available to assist: [facility] [phone] [facility] [phone] [facility] [phone] How are some things that you can do that will lower your risk for falls at home: Arrange furniture to prevent tripping or bumping into it. Keep a light on in the bedroom & bathroom to help you see at night. Have your doctor or pharmacist review your medications. Remove things that you can trip over like phone cords, rugs & footstools. Wear sturdy non-skid slippers or shoes with flat or low heels Use handrails when going up & down stairs. Take one step at a time. Begin a regular exercise program When getting up, sit on the edge of the bed/chair for a few minutes before standing. Sit & stand up slowly. Avoid tilting your head back. Watch out for sidewalks & curbs that are not even. Replace worn walker, cane & crutch tips. Disclaimer: This material provides general information only. It should not be used in place of the advice, instructions, or treatment given by your doctor or other health care management specialist. UX ENGINEER UX ENGINEER UX ENGINEER documented in this encounter Medications at Time of Discharge finasteride (PROSCAR) 5 mg tabletIndications :benign prostatic hyperplasia with lower urinary tract sx Take 1 tablet (5 mg total) by mouth playground monitor before breakfast multivitamin capsuleIndication s:Vitamin Deficiency Prevention Take 1 capsule by mouth every morning vit A/vit C/vit E/zinc/copper (PRESERVISION AREDS ORAL) Take 1 capsule by mouth 2 (two) times a day cetirizine (ZyrTEC) 10 mg tablet Take 10 mg by mouth playground monitor before breakfast 3 famotidine (PEPCID) 40 mg tablet Take 1 tablet (40 mg total) by mouth nightly 03/28/2020 3 fluticasone propionate (FLONASE) 50 mcg/actuation nasal spray Administer 1 spray into each nostril playground monitor before breakfast 04/12/2022 3 folic acid (FOLVITE) 1 mg tablet Take 1 tablet (1 mg total) by mouth playground monitor before breakfast 3 methotrexate 2.5 mg tablet Take 6 tablets (15 mg total) by mouth once a week saturday02/02/2020 3 montelukast (SINGULAIR) 10 mg tablet Take 10 mg by mouth nightly 04/12/2022 3 omeprazole (PriLOSEC) 20 mg capsule Take 2 capsules (40 mg total) by mouth playground monitor before breakfast 3 oxyCODONE (ROXICODONE) 5 mg immediate release tablet Take 1 tablet (5 mg total) by mouth every 4 (four) hours as needed for pain 7 tablet 05/07/2022 3 rOPINIRole (REQUIP) 1 mg tablet Take 2 tablets (2 mg total) by mouth nightly 3 UNABLE TO FIND Take 1 each by mouth nightly as needed THC gummie-25mg 4 documented as of this encounter Ordered Prescriptions Prescription Sig Dispense Quantity Refills Last Filled Start Date End Date oxyCODONE (ROXICODONE) 5 mg immediate release tablet Take 1 tablet (5 mg total) by mouth every 4 (four) hours as needed for pain 7 tablet 05/07/2022 02/01/2023 documented in this encounter Discharge Disposition Disposition Code Departure Means Destination Discharge to home or self care documented in this encounter H&P Notes * Mandy Nielsen MD - 05/07/2022 8:10 AM CST I have reviewed the H&P, examined the patient, and endorse the findings as written with the following changes/updates: Physical Exam . Physical Exam: General: NAD, alert, gravely voice quality auditor: NC, AT Eyes: Sclera white, no injection or chemosis, no periorbital edema Ears: Normal set, no drainage Nose: No nasal bleeding, no flaring Mouth: No OC/OP bleeding, tolerating secretions, MMM Neck: Soft and flat CV: Extremities warm and well perfused Pulm: NLB, no stridor, no stertor Neuro: Alert, oriented, opens eyes, regards, follows commands, CN VII intact, XII intact Plan of Care : Based on the above findings, I consider Pasquale Sanchez to be an acceptable risk for : Procedure(s): MICROLARYNGOSCOPY WITH BIOPSY/EXCISION LESION LASER KTP Cosigned by Nakita Herrera MD at 05/07/2022 8:18 AM UI UX ENGINEER UX ENGINEER UX ENGINEER Source Note - Zelda Johnson NP - 05/02/2022 9:30 AM UI UX ENGINEER Images from the original note were not included. [facility] Preoperative [facility] and Planning Preoperative Evaluation Record Evaluation type/location: TPAP from [facility] Planned procedure site: [facility] OR Date: 05/02/22 NOTE: This note represents a preoperative evaluation initiated via telephone interview. NO PHYSICALEXAM was performed at the time of initial assessment. A physical exam may be added to this note anddocumented below. Anesthesia Evaluation Pasquale Sanchez is a 76 y.o. 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 male who is being evaluated prior to undergoing MICROLARYNGOSCOPY WITH BIOPSY/EXCISION LESION (Throat) LASER KTP under general anesthesia. PMH includes GERD. Past Medical History Information obtained from: patient and chart. Neurological Pertinent negatives: neuromuscular disease; CVA/stroke and TIA Cardiovascular Pertinent negatives: hypertension ; CAD ; IA ; CABG ; valvular heart disease; atrial fibrillation; pacemaker/ICD; DVT/PE; negative for CHF; drug-eluting stent(s) and bare metal stent(s) Respiratory Pertinent negatives: COPD; sleep apnea (BETSY); pulmonary hypertension; no O2 use outside the hospital and non-smoker Hepatic / Heme Pertinent negatives: liver disease Gastrointestinal + GERD - on daily therapy. Asymptomatic. Renal / + Nephrolithiasis Pertinent negatives: renal disease and dialysis Musculoskeletal/Pain + Chronic pain - back pain. + Osteoarthritis Endocrine / Other + Cancer history Cancer type: SCC . Pertinent negatives: diabetes mellitus; thyroid disease; transplanted organ and infectious disease Comments: Denies UTI/dental infection symptoms today Functional Capacity Functional capacity: 4-6 METs Comments: Patient is able to walk 2-4 city blocks and up 2 flights of stairs without shortness of breath or chest pain. Review of Systems + easy bruising (no excessive bleeding) + chronic pain + vision loss (glasses) Pertinent negatives: productive cough; wheezing; SOB; recent cold/flu; fever; chest pain; palpitations; orthopnea; pedal edema; PND; previous transfusion; melena/hematochezia; bleeding problems; syncope; dizziness; hard of hearing; nausea; diarrhea; dentures/partials; chipped/loose teeth; abdominalpain and no unexpected weight change PAT Summary and Plans Cardiac risk classification of planned procedure: low cardiac risk. Preoperative assessment status: complete. Additional comments: Pasquale Sanchez is a 76 y.o. male who is being evaluated prior to undergoing a low cardiac risk surgery. Revised Cardiac Risk Index factors are (none) for a total RCRI of 0 out of 6. Functional capacity is 4-6 METs. NOTE: This note represents a preoperative evaluation initiated via telephone interview. NO PHYSICALEXAM was performed at the time of initial assessment. A physical exam may be added to this note anddocumented below. Obstructive sleep apnea (BETSY) screening status is STOP-BANG incomplete at 3-4 suggesting MODERATE risk for BETSY. Neck circumference pending. May need BETSY order set initiated if Co2 >27. Blood bank needs for day of procedure: No type and screen needed Pending labs/tests include: None Patient instructions were provided via telephone and in writing sent via [employer]PS mail. Patient verbalized understanding of preoperative plan. [facility] Pre[facility] evaluation performed by Zelda Johnson NP on 05/02/22 at 9:34 AM. Patient Active Problem List Diagnosis ??? 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 Headache ??? intermediate frame tender use of drug ??? DDD (degenerative disc disease), lumbar ??? Shortness of breath ??? Atypical migraine ??? Calculus of kidney ??? Dyspepsia ??? 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 Dysphonia ??? Chronic migraine without aura without status migrainosus, not intractable ??? Lumbar facet arthropathy ??? Chronic bilateral low back pain without sciatica ??? Lesion of vocal fold ??? Malignant neoplasm of prostate (CMS/HCC) (HCC) ??? Dysplasia of larynx Past Medical History: Diagnosis Date ??? Allergic rhinitis ??? Arthritis arthritis ??? Calculus of kidney Nephrolithiasis ??? Cancer of vocal cord (CMS/HCC) (HCC) ??? Depression ??? Gastric reflux ??? Gastroesophageal reflux disease acid reflux ??? Headache, tension-type ??? History of multiple allergies allergies ??? HX OTHER MEDICAL 1981 L shoulder ??? HX OTHER MEDICAL 1982 R shoulder ??? HX OTHER MEDICAL 1986 R shoulder bone spurs ??? HX OTHER MEDICAL 1962 ear drum patch ??? HX OTHER MEDICAL 1977 testicle ??? HX OTHER MEDICAL Headache, migraine ??? HX OTHER MEDICAL 1981 Bisept tendonitis ??? HX OTHER MEDICAL 1994 Pinched Prostate ??? HX OTHER MEDICAL 2000 kidney stone ??? HX OTHER MEDICAL hemorroids; Comments: Had done at [facility] in [place] ??? HX OTHER MEDICAL bladder infection ??? HX OTHER MEDICAL kidney stone ??? Low back pain ??? Migraine ??? Rheumatoid arthritis (HCC) Past Surgical History: Procedure Laterality Date ??? BICEPS TENODESIS Left 1970's ??? COLONOSCOPY 03/14/2020 ??? CYSTOSCOPY 2019 ??? EAR SURGERY Left repair perforated eardrum 1970's ??? LARYNGOSCOPY Right 01/09/2019 Direct laryngoscopy with biopsy ??? LARYNGOSCOPY Right 02/16/2019 Suspension microlaryngoscopy with KTP laser photoablation Right vocal fold lesion ??? LITHOTRIPSY 5 or 6 times s - [id number] ??? ORCHIECTOMY Right s ??? OTHER SURGICAL HISTORY 04/18/2020 Suspension microlaryngoscopy with KTP laser treatment-multiple ??? PROSTATE SURGERY Pinched Prostate: surgically repaired ??? ROTATOR CUFF REPAIR Right and removal of bone spurs ??? SHOULDER SURGERY Right bone spurs ??? VASECTOMY Allergies Allergen Reactions ??? Perfume Swelling, Cough and Shortness of breath ??? Mold Unknown ??? Cat Dander Eye irritation ??? Hydrocodone Itching ??? Vicodin [Hydrocodone-Acetaminophen] Itching Med List Status: Nurse Complete Set By: Tejal Mariano RN at 05/01/2022 5:28 PM Taking? Last Dose Start Date End Date Provider cetirizine (ZyrTEC) 10 mg tablet 05/01/2022 -- -- ProviderEmmie MD famotidine (PEPCID) 40 mg tablet 04/30/2022 03/28/20 -- Emmie Reynoso MD finasteride (PROSCAR) 5 mg tablet 05/01/2022 -- -- Emmie Reynoso MD fluticasone propionate (FLONASE) 50 mcg/actuation nasal spray 05/01/2022 04/12/22 -- Emmie Reynoso MD folic acid (FOLVITE) 1 mg tablet 05/01/2022 -- -- Emmie Reynoso MD methotrexate 2.5 mg tablet Past Week 02/02/20 -- ProviderEmmie MD montelukast (SINGULAIR) 10 mg tablet 04/30/2022 04/12/22 -- Emmie Reynoso MD multivitamin capsule 05/01/2022 -- -- Emmie Reynoso MD omeprazole (PriLOSEC) 20 mg capsule 05/01/2022 -- -- Emmie Reynoso MD rOPINIRole (REQUIP) 1 mg tablet 04/30/2022 -- -- Emmie Reynoso MD UNABLE TO FIND 04/30/2022 -- -- Emmie Reynoso MD vit A/vit C/vit E/zinc/copper (PRESERVISION AREDS ORAL) 05/01/2022 -- -- Emmie Reynoso MD No current facility-administered medications for this encounter. Current Outpatient Medications: ??? cetirizine (ZyrTEC) 10 mg tablet ??? famotidine (PEPCID) 40 mg tablet ??? finasteride (PROSCAR) 5 mg tablet ??? fluticasone propionate (FLONASE) 50 mcg/actuation nasal spray ??? folic acid (FOLVITE) 1 mg tablet ??? methotrexate 2.5 mg tablet ??? montelukast (SINGULAIR) 10 mg tablet ??? multivitamin capsule ??? omeprazole (PriLOSEC) 20 mg capsule ??? rOPINIRole (REQUIP) 1 mg tablet ??? UNABLE TO FIND ??? vit A/vit C/vit E/zinc/copper (PRESERVISION AREDS ORAL) Social History Tobacco Use Smoking Status Former ??? Packs/day: 1.50 ??? Years: 30.00 ??? Pack years: 45.00 ??? Types: Cigarettes ??? Start date: 1960 ??? Quit date: 1995 ??? Years since quittin.9 Smokeless Tobacco Never Alcohol Use: Not At Risk ??? Frequency of Alcohol Consumption: 2-3 times a week ??? Average Number of Drinks: 1 or 2 ??? Frequency of Binge Drinking: Never Substance and Sexual Activity Drug Use Yes ??? Types: Medical marijuana Family History Adopted: Yes Problem Relation Age of Onset ??? Other Other adopted ??? Other Other adopted ??? Anesthesia problems Neg Hx There were no vitals filed for this visit. PT: No results found for requested labs within last 720 hours. INR: No results found for requested labs within last 720 hours. APTT: No results found for requested labs within last 720 hours. Hgb A1C: No results found for requested labs within last 720 hours. CBC RBC: No results found for requested labs within last 720 hours. RDW: No results found for requested labs within last 720 hours. MCHC: No results found for requested labs within last 720 hours. MCH: No results found for requested labs within last 720 hours. MCV: No results found for requested labs within last 720 hours. Hct: No results found for requested labs within last 720 hours. Hgb: No results found for requested labs within last 720 hours. WBC: No results found for requested labs within last 720 hours. MPV: No results found for requested labs within last 720 hours. Platelets: No results found for requested labs within last 720 hours. RDW CV: No results found for requested labs within last 720 hours. RDW Sd: No results found for requested labs within last 720 hours. BMP Glucose: No results found for requested labs within last 720 hours. Calcium: No results found for requested labs within last 720 hours. Sodium: No results found for requested labs within last 720 hours. Potassium: No results found for requested labs within last 720 hours. CO2: No results found for requested labs within last 720 hours. Chloride: No results found for requested labs within last 720 hours. BUN: No results found for requested labs within last 720 hours. Creatinine: No results found for requested labs within last 720 hours. 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 Suspension microlaryngoscopy with KTP laser resection of right vocal fold lesion OPERATIVE FINDINGS: Fullness of right vocal fold; scarring vs disease causing firmness of the vocal fold Resection of prior surgical site, margins taken as well. Challenging exposure, anterior larynx with Dedo excalibur INDICATIONS FOR PROCEDURE: Pasquale Sanchez is a 76 y.o. 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 DESCRIPTION OF PROCEDURE PERFORMED: The patient was brought back to the operating room and laid supine on the table. After the appropriate timeouts were performed, general anesthesia was induced, and the patient was easily intubated using a 5.0 laser-safe endotracheal tube taped off to the left corner of the lip. Laser safe eye protection was placed, the head was wrapped, the bed was rotated 90 degrees, and the patient was draped in the standard fashion. Dental guards were placed over the patient's upper and lower dentition and the Dedo Excalibur laryngoscope was inserted in the usual fashion, sweeping the tongue base to the left in order to gain access to the laryngeal introitus where it was then suspended from the yuen stand. Photodocumentation was first performed using the 0-degree laryngeal telescope. The operative microscope was then brought into the field to perform the remainder of the surgery under binocular microscopy for increased accuracy and precision. Wet towels were draped onto the patient's face. The prior surgical site was lightly grasped with a Bouchayer. Next, a 0.4 mm KTP laser fiber set at3W continuous was then used to resect this area. The specimen was sent in formalin. The anterior portion of the resection bed appeared slightly abnormal more tissue was sent anteriorly and sent separately. We then turned our attentions to the margins. Using a combination of Bouchayer and microscissors, margins were obtained: inferiorly, anteriorly, superiorly, posteriorly and deep. These were allsent in formalin. The laser on ablation mode and an Afrin-soaked pledget were used for hemostasis. An LTA was then sprayed into the patient's airway. The laryngoscope was then taken out of suspension and removed from the patient's mouth, along with the dental guards. The patient's dentition appeared intact at the end of the case. The patient was then turned over to anesthesia for recovery. EBL: Minimal IV Fluids: Per anesthesia Specimens: Right vocal fold lesion Anterior main specimen Inferior margin Anterior margin Deep margin Superior margin Posterior margin Sponge/Instrument/Needle Count: Correct at end of case Condition: Stable to the PACU Attestation: INakita MD, was present and participated in the entirety of the procedure UX ENGINEER * Pre-Procedure Instructions - Zelda Johnson NP - 05/02/2022 9:10 AM UI UX ENGINEER [facility] Location: [facility] The night before your surgery: * Do not eat anything after midnight the night before your procedure. * Do not smoke or use tobacco [...] with you on the day of surgery. Outpatient Surgery: * You must have a [...] For Your Medications: Pre-Surgery Instructions: Medication Instructions cetirizine (ZyrTEC) 10 mg tablet Don't take on day of surgery famotidine (PEPCID) 40 mg tablet Don't take on day of surgery finasteride (PROSCAR) 5 mg tablet Take morning of surgery fluticasone propionate (FLONASE) 50 mcg/actuation nasal spray Don't take on day of surgery folic acid (FOLVITE) 1 mg tablet Don't take on day of surgery methotrexate 2.5 mg tablet Take as prescribed unless instructed otherwise by surgeon montelukast (SINGULAIR) 10 mg tablet Don't take on day of surgery multivitamin capsule Stop taking 1 week prior to surgery omeprazole (PriLOSEC) 20 mg capsule Take morning of surgery rOPINIRole (REQUIP) 1 mg tablet Don't take on day of surgery THC gummy Don't take on day of surgery vit A/vit C/vit E/zinc/copper (PRESERVISION AREDS ORAL) Stop taking 1 week prior to surgery General Instructions For Medications: * Stop all [...] with COVID-19. You test positive for COVID-19. UX ENGINEER * Perioperative Nursing Note - Tejal Mariano RN - 05/01/2022 5:34 PM CST [facility] Perioperative Nursing Note Telephone Preoperative Evaluation ([facility]) - TELEPHONE ONLY, NO PHYSICAL EXAM Date: 05/01/22 Vitals: 05/01/22 1730 Weight: 98.4 kg (217 lb) Height: 185.4 cm (6' 1 ) CHEST CIRCUMFERENCE: n/a Social History Tobacco Use Smoking Status Former Packs/day: 1.50 Years: 30.00 Pack years: 45.00 Types: Cigarettes Start date: 1958 Quit date: 1995 Years since quittin.9 Smokeless Tobacco Never Substance and Sexual Activity Drug Use Yes Types: Medical marijuana Alcohol Use Q1: How often do you have a drink containing alcohol?: 2-3 times a week Q2: How many drinks containing alcohol do you have on a typical day when you are drinking?: 1 or 2 Q3: How often do you have six or more drinks on one occasion?: Never Outpatient Medications Marked as Taking for the 05/07/22 encounter (Hospital Encounter) Medication Sig Dispense Refill cetirizine (ZyrTEC) 10 mg tablet Take 10 mg by mouth playground monitor before breakfast famotidine (PEPCID) 40 mg tablet Take 40 mg by mouth nightly finasteride (PROSCAR) 5 mg tablet Take 5 mg by mouth playground monitor before breakfast fluticasone propionate (FLONASE) 50 mcg/actuation nasal spray Administer 1 spray into each nostril playground monitor before breakfast folic acid (FOLVITE) 1 mg tablet Take 1 mg by mouth playground monitor before breakfast methotrexate 2.5 mg tablet Take 6 tablets by mouth once a week saturday montelukast (SINGULAIR) 10 mg tablet Take 10 mg by mouth nightly multivitamin capsule Take 1 capsule by mouth every morning omeprazole (PriLOSEC) 20 mg capsule Take 40 mg by mouth playground monitor before breakfast rOPINIRole (REQUIP) 1 mg tablet Take 1 mg by mouth nightly UNABLE TO FIND Take 1 each by mouth nightly as needed THC gummie-25mg vit A/vit C/vit E/zinc/copper (PRESERVISION AREDS ORAL) Take 1 capsule by mouth 2 (two) times a day [DISCONTINUED] lansoprazole (PREVACID) 30 mg capsule Take 30 mg by mouth Implants No active implants to display in this view. SKIN Piercings Remaining: No Wound (LDAs) Type of Wound (LDA): (denies) SCREENINGS Marcelle index score: 100 NUTRITION PATIENT CARE PLANNING Advance Directives (For Healthcare) Have you reviewed your Advance Directive and is it valid for this stay?: Yes Advance Directive: Patient has advance directive, copy in chart Communication/Communications Professional Needs Communication Needs: Glasses Assistive Devices/DME: Eyeglasses Hearing - Right Ear: Functional Hearing - Left Ear: Functional Discharge Planning Type of Residence: Private residence Living Arrangements: Spouse/significant other Support Systems: Spouse/significant other Assistance Needed: Ara to drive/care for pt Patient expects to be discharged to:: Private residence 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 Arrival time and surgical time will be provided to the patient by their surgeon. You should wear clothing that is clean, loose, comfortable and easy to get in and out of on the dayof surgery. You should leave your valuables and any jewelry at home. No metal or piercings are allowed in the operating room. You should bring your insurance card, a photo ID (example: Heat Curer's License) and a method of payment for any insurance copay, deductible or copay for discharge medications. You should bring a complete, up-to-date list of all your medications on the day of surgery, including any over the counter medications or supplements you may take. You should bring your Advanced Directive and/or Living Will with you on the day of surgery if you have not verified a copy is already in your Epic Chart. If you are having surgery at [facility], please arrive on the day of surgery [...] able to obtain your prescriptions that evening. A Guide for Patients Having Surgery: Your Pathway to Excellent Care OUR GOAL IS TO PROVIDE YOU WITH EXCELLENT CARE Use this guide to learn about what you can do before, during and after surgery to help your recovery. You are the most important person on your health care team. By becoming informed and involved, you can contribute to the success of your surgery. If your surgeon's directions are different than those in this guide, talk with your nurse or surgeon to confirm the information. It is important that you understand how to take care of yourself at home after surgery. Be sure to bring this guide with you on the day of surgery and take it home with you after surgery. Write down questions for your nurse or surgeon on the last page of this booklet. Important pages to be reviewed BEFORE surgery: Page 1: QR codes for Surgery Center maps Page 3: Types of Anesthesia Page 5: Tips for the day & night before surgery Page 6: When to stop eating BEFORE surgery and examples of clear liquids Page 7-10: Preventing Infection: Chlorhexidine Gluconate (CHG) Bathing Instructions You may access A Guide for Patients Having Surgery: Your Pathway to Excellent Care by the followinglink: [email or web address] How To Prepare Your Skin For Surgery Below is the Pre-Surgical Bathing Protocol you should follow for your surgery. If your surgeon provides you different bathing instructions, please follow your surgeon's orders. Normal Bathing: Bathe with regular soap the night before and/or day of surgery. Normal Bathing Protocol Bathe with your normal soap the night before and/or the morning of surgery. Wear clean clothes or pajamas to sleep in. After showering DO NOT put on deodorant, hair products, conditioners, lotions, creams, powders, Vaseline or any non-essential products. Place clean linens on your bed the night before surgery. Shaving: You may shave your face, legs and underarms during your evening shower. Avoid shaving on the day of surgery. Travel/Exposure Screening: Travel Screening Have you traveled outside the [place] in the last 6 months?: No Exposure Screening Have you been exposed to anyone who is sick in the last 30 days?: No Have you been exposed to or tested positive for COVID-19 within the last 10 days?: No Have you tested positive for monkeypox within the last 28 days or are you waiting for a monkeypox test result?: No Infectious Disease Screening Are you having any of the following:: None As of 03/27/2022 any COVID TESTING required for surgery will be set up by your surgeon's office. Please reach out to your surgeon's office if you develop any COVID symptoms, test positive for COVID or are exposed to a COVID positive person. If you have questions, please call the CP[facility] Staff at [phone], Saturday-Saturday 8am-4:30pm. All patients should read the below section: All visitors/patients are being asked to wear a clean face mask when entering the hospital. COVID 19 Updates & Visitor Policy: Please access [email or web address] for the most updated information. Information on [facility]: Please view [email or web address] (Patient & Visitor Information) for additional details regarding Advanced Directive forms, AWARE, directions, parking information, lodging, Internet access, dining and more. Information on [facility] or [facility] [place] ([facility]): Please view [email or web address] (Patient and Visitor Information) for parking/directions and more. For MyChart information, to activate account or password recovery, please go to [email or web address] or call [phone] (toll-free: [phone]). Information for Suicide Prevention: National Suicide Prevention Lifeline (9-265- 778-MTXL (8284)). Surgery Times: For patients having surgery @ [facility], [facility] for [facility], [facility] or [facility] [place] ([facility]), if your surgeon's office has not notified you of your surgery time by NOON THE BUSINESS DAY BEFORE your surgery, please call [phone] and ask for your surgeon's office Dr. Ashley Herrera. UX ENGINEER documented in this encounter Plan of Treatment [...] on stairs Contact your local community or [facility] for information on exercise, fall prevention programs, or options for improving home safety. documented as of this encounter Procedures Procedure Name Priority Date/Time Associated Diagnosis Comments SURGICAL PATHOLOGY Routine 05/07/2022 8: 56 AM UI UX ENGINEER Dysplasia of larynx LASER KTP 05/07/2022 8:21 AM UI UX ENGINEER Dysplasia of larynx Special Needs dedo excalibur, ossoff pilling, KTP laser MICROLARYNGOSCOPY WITH BIOPSY/EXCISION LESION 05/07/2022 8:21 AM UI UX ENGINEER Dysplasia of larynx Special Needs dedo excalibur, ossoff pilling, KTP laser documented in this encounter Results * Surgical pathology (05/07/2022 8:56 AM UI UX ENGINEER) Tissue (Mass/Tumor/Lesio n) 05/07/2022 8:56 AM UI UX ENGINEER Tissue (Soft tissue biopsy) 05/07/2022 9:00 AM UI UX ENGINEER Tissue (Soft tissue biopsy) 05/07/2022 9:05 AM UI UX ENGINEER Tissue (Soft tissue biopsy) 05/07/2022 9:08 AM UI UX ENGINEER Tissue (Soft tissue biopsy) 05/07/2022 9:13 AM UI UX ENGINEER Tissue (Soft tissue biopsy) 05/07/2022 9:14 AM UI UX ENGINEER Tissue (Soft tissue biopsy) 05/07/2022 9:19 AM UI UX ENGINEER Narrative PATHOLOGY [facility] - 05/09/2022 10:48 AM UI UX ENGINEER EPIC results best viewed via link to PDF [facility] [place] [address] Note to Patients: This report may contain a detailed description of human tissue sent by a health care provider to the laboratory for pathologic evaluation. The content of this report is essential for diagnosis and may provide important critical findings. This information may be unfamiliar to patients to review without a medical professional present. It is advised that the patient review this report in the presence of a health care provider who can answer questions and explain the details. SURGICAL PATHOLOGY REPORT FINAL Patient Name: ?? PASQUALE SANCHEZ Gender: ??M : ??1945 (Age: 76) Address: ??[address], [place] ??[address] Hospital #: ??[id number] Taken:05/07/2022 Received:05/07/2022 Reported: 05/09/2022 Patient Type: C EP SAME Client ?[facility] Service: Surgery Location: Physician(s): ??Nakita Herrera M.D. ZOILA Kuo M.D. Diagnosis: A. ??Larynx, right vocal cord lesion, biopsy ? - Cauterized squamous mucosa with no evidence of dysplasia or malignancy ?? B. ??Larynx, anterior main specimen, biopsy ? - Scant cauterized tissue and rare detached atypical cells ?? C. ??Larynx, inferior right margin, biopsy ? - Predominantly denuded mucosa with chronic inflammation ? - No evidence of malignancy ?? D. ??Larynx, anterior margin, biopsy ? - Scant cauterized superficial squamous epithelium ? E. ??Larynx, deep, biopsy ? - Tissue exhausted in processing (see comment) ?? F. ??Larynx, superior, biopsy ? - Predominantly denuded mucosa with mild chronic inflammation and fibrosis ? - No evidence of malignancy ?? G. ??Larynx, posterior, biopsy ? - No evidence of dysplasia or malignancy ?? mso/05/08/2022 10:36 By this signature, I attest that the above diagnosis is based upon my personal examination of the slides(and/or other material indicated in the diagnosis). Tejal Rodrigues M.D. Report Electronically Reviewed and Signed Out By ??Tejal Rodrigues M.D. 05/09/2022 10:48:03 Microscopic Description and Comment: Microscopic examination substantiates the above cited diagnosis. Multiple deeper recuts were obtained and examined. The tissue submitted from the deep larynx was minute and was exhausted during processing. Valenitn Bess M.D. History: The patient is a 76-year-old man with dysplasia of the larynx. Operative procedure: Microlaryngoscopy with excision of the lesion, biopsy and laser KTP. Specimen(s) Received: A: Right vocal cord lesion B: Anterior main specimen C: Inferior right margin D: Anterior margin E: Deep F: Superior G: Posterior Gross Description: Received in seven formalin jars labeled with the patient's identifiers. A. ??Labeled right vocal cord lesion Are multiple irregular tissue fragment(s) (measuring 0.7 x 0.3 x 0.1 cm in aggregate). ?? Labeled A1. Jar 0. B. ??Labeled anterior main specimen Is a single irregular tissue fragment(s) (measuring 0.3 x 0.1 x 0.1 cm. ??Stained with hematoxylin). ?? Labeled B1. Jar 0. C. ??Labeled inferior right margin Is a single irregular tissue fragment(s) (measuring 0.3 x 0.1 x 0.1 cm. ??Stained with hematoxylin). ?? Labeled C1. Jar 0. D. ??Labeled anterior margin Is a single irregular tissue fragment(s) (measuring 0.1 x 0.1 x 0.1 cm. ??Saint hematoxylin. ??The specimen is so small and may not survive processing). ?? Labeled D1. Jar 0. E. ??Labeled deep Is a single irregular tissue fragment(s) (measuring 0.1 x 0.1 x 0.1 cm. ??Stained with hematoxylin. ??The specimen is small and may not survive processing). ?? Labeled E1. Jar 0. F. ??Labeled superior Are two irregular tissue fragment(s) (measuring 0.6 x 0.2 x 0.1 cm in aggregate. ??Stained with hematoxylin). ?? Labeled F1. Jar 0. G. ??Labeled posterior Is a single irregular tissue fragment(s) (measuring 0.2 x 0.1 x 0.1 cm. ??Stained with hematoxylin. ??The specimen is so small minute survive processing.). ?? Labeled G1. Jar 0. ?? cnew/05/07/2022 13:57 PA(s): SONIA Gutiérrez, CT ([facility]) By this signature, I attest that the above diagnosis is based upon my personal examination of the slides(and/or other material). Addenda/Procedures The performance characteristics of some immunohistochemical stains, fluorescence in-situ hybridization tests and immunophenotyping by flow cytometry cited in this report (if any) were determined by the Surgical Pathology and Flow Cytometry Departments at [facility] as part of an ongoing quality assurance specialist program and in compliance with federally mandated regulations drawn from the Clinical Laboratory Improvement Act of 1988 (CLIA '88). ??Some of these tests rely on the use of analyte specific reagents and are subject to specific labeling requirements by the US Food and Drug Administration. ??Such diagnostic tests may only be performed in a facility that is certified by the Department of Health and Human Services as a high complexity laboratory under CLIA '88. ??The FDA has determined that such clearance or approval is not necessary. ??This test is used for clinical purposes. ??It should not be regarded as investigational or for research. ??Nevertheless, federal rules concerning the medical use of analyte specific reagents require that the following disclaimer be attached to the report: This test was developed and its performance characteristics determined by the Surgical Pathology and Flow Cytometry Departments of [facility]. ??It has not been cleared or approved by the U. S. Food and Drug Administration. IMAGES AND SCANNED DOCUMENTS, IF INCLUDED, ONLY VIEWABLE IN PDF VERSION OF REPORT Nakita Herrera MD LAB PATHOLOGY [facility] Final Result PATHOLOGY [facility] [phone] documented in this encounter Visit Diagnoses Diagnosis Dysplasia of larynx- Primary Dysplasia of larynx documented in this encounter Admitting Diagnoses Diagnosis Dysplasia of larynx documented in this encounter Administered Medications Inactive Administered Medications - up to 3 most recent administrations Medication Order MAR Action Action Date Dose Rate Site Lactated Ringer's (LR) infusion 30 mL/hr, intravenous, Continuous, Starting on Sat05/07/22 at 0800, For 4 hours, Pre-Op, Use a 500 ml bag for End Stage Renal Disease Patients. Discontinue if fluid still running once patient arrives to floor. New Bag 05/07/2022 9:02 AM UI UX ENGINEER Rate/Dose Verify 05/07/2022 8:16 AM UI UX ENGINEER 30 mL/h r New Bag 05/07/2022 7:45 AM UI UX ENGINEER 30 mL/hr 30 mL/hr oxymetazoline (AFRIN) 0.05 % nasal spray As needed, Starting on Sat05/07/22 at 0846, Intra-Op Given 05/07/2022 8:46 AM UI UX ENGINEER 1 application (deactivated) sodium chloride 0.9% irrigation As needed, Starting on Sat05/07/22 at 0750, Intra-Op Given 05/07/2022 7:50 AM UI UX ENGINEER 250 mL Surgical Site documented in this encounter Discontinued Medications Medication Sig Discontinue Reason Start Date End Da te aspirin 81 mg chewable tablet Take 81 mg by mouth playground monitor before breakfast Error 05/01/2022 escitalopram (LEXAPRO) 10 mg tablet Take 10 mg by mouth daily Error 02/07/2022 05/01/2022 albuterol HFA (PROVENTIL HFA,VENTOLIN HFA,PROAIR HFA) 90 mcg/actuation inhaler INHALE 1 TO 2 PUFFS EVERY 4 TO 6 HOURS NEEDED FOR DIFFICULTY BREATHING Error 06/26/2021 05/01/2022 fluocinonide (LIDEX) 0.05 % external solution Error 11/17/2020 05/01/2022 lansoprazole (PREVACID) 30 mg capsule Take 30 mg by mouth Error 12/19/2021 05/01/2022 documented as of this encounter Historical Medications * This list may reflect changes made after this encounter. cetirizine (ZyrTEC) 10 mg tablet Take 10 mg by mouth playground monitor before breakfast 3 folic acid (FOLVITE) 1 mg tablet Take 1 tablet (1 mg total) by mouth playground monitor before breakfast 3 montelukast (SINGULAIR) 10 mg tablet Take 10 mg by mouth nightly 04/12/2022 3 lansoprazole (PREVACID) 30 mg capsule Take 30 mg by mouth 12/19/2021 2 fluticasone propionate (FLONASE) 50 mcg/actuation nasal spray Administer 1 spray into each nostril playground monitor before breakfast 04/12/2022 3 escitalopram (LEXAPRO) 10 mg tablet Take 10 mg by mouth daily 02/07/2022 2 aspirin 81 mg chewable tablet Take 81 mg by mouth playground monitor before breakfast 2 albuterol HFA (PROVENTIL HFA,VENTOLIN HFA,PROAIR HFA) 90 mcg/actuation inhaler INHALE 1 TO 2 PUFFS EVERY 4 TO 6 HOURS NEEDED FOR DIFFICULTY BREATHING 06/26/2021 2 added in this encounter Active and Recently Administered Medications Times are shown in UI UX ENGINEER. Continuous Medication Order 05/05/2022 05/06/2022 05/07/2022 Lactated Ringer's (LR) infusion 30 mL/hr, intravenous, Continuous, Starting on Sat05/07/22 at 0800, For 4 hours, Pre-Op, Use a 500 ml bag for End Stage Renal Disease Patients. Discontinue if fluid still running once patient arrives to floor. 0745 (New Bag - Prov ider: Rosalba Momin RN)0816 (Rate/Dose Verify - Provider: Leticia Gresham CRNA)0901 (Paused - Provider: Leticia Gresham CRNA - Comment: Switch to gravity)0902 (New Bag - Provider: Leticia Gresham CRNA)0927 (Anesthesia Volume Adjustment - Provider: Leticia Gresham CRNA)1503 (Due: Stopped) Lactated Ringer's (LR) infusion 125 mL/hr, intravenous, Continuous, Starting on Sat05/07/22 at 1000, For 4 hours, Phase I, Discontinue upon discharge from PACU to the floor. 1000 (Due) PRN Medication Order 05/05/2022 05/06/2022 05/07/2022 acetaminophen (TYLENOL) tablet 500 mg 500 mg, oral, Every 6 hours PRN, headaches, other, Breakthrough Pain and Supplement to other pain meds, Starting on Sat05/07/22 at 0925, For 2 doses, Phase I, When able to tolerate PO after consulting with Anesthesiologist. Do not administer if patient has already received Acetaminophen-containing medications in PACU., Indications: Pain diphenhydrAMINE (BENADRYL) injection 12.5 mg 12.5 mg, intravenous, Administer over 1 Minutes, Every 5 min PRN, itching, other, For Nausea, administer 25 mg IV., Starting on Sat05/07/22 at 0925, For 4 doses, Phase I, Max cumulative dose 50 mg., Indications: Itching fentaNYL (SUBLIMAZE) preservative free injection 25 mcg 25 mcg, intravenous, Every 5 min PRN, 2nd line for pain, Use Fentanyl as 1st line medication for extremely severe pain for outpatients, and follow with oral pain medication., Starting on Sat05/07/22 at 0925, For 4 doses, Phase I, Use as 1st line for outpatients, dose not to exceed 100 mics. If pain still extremely severe after 100 mics of Fentanyl, may proceed to Dilaudid after consulting with Anesthesiologist. If patient able to tolerate PO meds and pain improved after Fentanyl, proceed to Oral pain medication., Indications: Pain hydrALAZINE (APRESOLINE) injection 5 mg 5 mg, intravenous, Administer over 2 Minutes, Every 5 min PRN, high blood pressure, Starting on Sat05/07/22 at 0925, Phase I, Max cumulative dose 20 mg. Dose if systolic BP greater than 180 AND heart rate less than 70., Indications: hypertension HYDROcodone-acetaminophen (NORCO) 5-325 mg per tablet 1 tablet 1 tablet, oral, Every 20 min PRN, 3rd line for pain, breakthrough pain, May use as 1st line pain medication if pain not extremely severe and patient able to tolerate PO meds. If unable to tolerate PO meds or outpatient complaining of extremely severe pain, start with Fentanyl and follow with Oral meds., Starting on Sat05/07/22 at 0925, For 2 doses, Phase I, May administer TWO pills together if pain moderate to severe and patient able to tolerate PO meds, after consulting with Anesthesiologist., Indications: Pain HYDROmorphone (DILAUDID) injection 0.2 mg 0.2 mg, intravenous, Administer over 2 Minutes, Every 5 min PRN, 1st line for pain, Use as 1st line pain med for inpatients or for patients with extremely severe pain., Starting on Sat05/07/22 at 0925, Phase I, Use as first line pain medication for inpatients. May use as first line medication for outpatients with extremely severe pain, history of opioid tolerance, or history of Chronic Pain with opioid tolerance, after consulting with Anesthesiologist. Inform anesthesiologist when dose reaches 2 mg for inpatients or 1 mg for outpatients., Indications: Chronic Pain with Opioid Tolerance, Pain, Severe Pain with Opioid Tolerance labetaloL (NORMODYNE,TRANDATE) injection 5 mg 5 mg, intravenous, Every 5 min PRN, high blood pressure, Starting on Sat05/07/22 at 0925, For 4 doses, Phase I, Max cumulative dose 20 mg. Dose if systolic blood pressure greater than 180 AND HR greater than 70. meperidine (DEMEROL) preservative free injection 12.5 mg 12.5 mg, intravenous, Administer over 5 Minutes, Every 10 min PRN, shivering, Starting on Sat05/07/22 at 0925, For 2 doses, Phase I, Max cumulative dose 25 mg., Indications: Shivering naloxone (NARCAN) 0.4 mg/mL injection 0.04-0.4 mg 0.04-0.4 mg, intravenous, Once as needed, other, excessive sedation/respiratory depression, Starting on Sat05/07/22 at 0925, For 1 dose, Phase I, Dilute 0.4 mg with 9 mL NS (final concentration 0.04 mg/mL). For respiratory depression (respiratory rate less than 6), administer 0.4 mg IVP over 30 seconds. For excessive sedation administer 0.04 mg (1 mL) every 1 minute until desired level of alertness. Consult with Anesthesiologist before administration. Administer 40 mics at a time. For IV, administer over 30 seconds., Indications: Opioid Toxicity ondansetron (ZOFRAN) injection 4 mg 4 mg, intravenous, Administer over 2 Minutes, Once as needed, nausea, vomiting, Starting on Sat05/07/22 at 0925, For 1 dose, Phase I, Proceed to prochlorperazine if ondansetron has been given within the last 6 hours. oxymetazoline (AFRIN) 0.05 % nasal spray (CANCELED) As needed, Starting on Sat05/07/22 at 0846, Intra-Op 0846 (Given - Provid er: Nakita Herrera MD) prochlorperazine (COMPAZINE) injection 5 mg 5 mg, intravenous, Administer over 2 Minutes, Once as needed, nausea, vomiting, Starting on Sat05/07/22 at 0925, For 1 dose, Phase I, If nausea/vomiting not relieved by ondansetron within 30 minutes or if ondansetron has been given within the last 6 hours. May give second 5 mg dose if nausea not relieved 20 minutes after first dose. sodium chloride 0.9% irrigation (CANCELED) As needed, Starting on Sat05/07/22 at 0750, Intra-Op 0750 (Given - Provid er: Nakita Herrera MD) documented in this encounter Orders Medications Ordered That Quinn ht Not Have Been Administered Count Last Ordered Date First Ordered Date acetaminophen (TYLENOL) tablet 500 mg 1 10/2021 diphenhydrAMINE (BENADRYL) i njection 12.5 mg 1 05/07/2022 famotidine (PEPCID) injection 20 mg 1 05/07 fentaNYL (SUBLIMAZE) preserv ative free injection 25 mcg 1 05/07/2022 hydrALAZINE (APRESOLINE) injection 5 mg 1 1 07/08/2021 HYDROcodone-acetaminophen (N ORCO) 5-325 mg per tablet 1 tablet 1 05/07/2022 HYDROmorphone (DILAUDID) injection 0.2 mg 1 05/07/2022 labetaloL (NORMODYNE,TRANDAT E) injection 5 mg 1 05/07/2022 Lactated Ringer's (LR) infusion 1 meperidine (DEMEROL) preserv ative free injection 12.5 mg 1 05/07/2022 naloxone (NARCAN) 0.4 mg/mL injection 0.04-0.4 mg 1 05/07/2022 ondansetron (ZOFRAN) injection 4 mg 1 05/07 prochlorperazine (COMPAZINE) injection 5 mg 1 05/07/2022 scopolamine patch 72 hour 1 patch 1 022 sodium chloride 0.9% flush 0.5-20 mL 1 10/2021 Discharge Count Last Ordered Date First Orde red Date DISCHARGE PATIENT 1 05/07/2022 documented in this encounter Care Teams Master Tax Advisor Relationship Specialty [place] [address] [facility] [address] [place] [address] Rheumatology 02/21/17 Lashay Downs, RN Registered Nurse Pain Management 06/17/17 Duke Do, RN Registered Nurse 09/09/17 Ngozi Petty MD Radiation Oncologist Radiation Oncology 02/05/19 Jose Roberto Marx MD Referring Physician Otolaryngology 02/05/19 documented as of this encounter
--- OUTSIDE RECORDS SUMMARY | 2024-06-14 16:47 | XMS_ITS | Encounter Summary ---
Author Organization [facility] Address [address] [place] [address] Phone Care Team Providers Care Telecommunications Project Manager Name Role Phone Criss Blanco MD Unavailable Lashay Downs RN Unavailable Unavailab Duke Goodwin RN Unavailable UnavailNgozi Husain MD Unavailable [phone] Jose Robetro Marx MD Unavailable [phone] Encounter Details Date Type Department Care Team (Late st Contact Info) Description 07/10/2022 Telephone [facility] Neurosurgery [address] [facility] Advanced Medicine 6th [place] [address] [place] [address] Baldo Bailey PA [address] [place] [address] Social History Tobacco Use Types [...] on file 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 IAGE PERFORMER * Telephone Encounter - Sandra Stoner CMA - 07/10/2022 8:52 AM CST Pt called stating while hospitalized a procedure was mentioned and he is attempting to get information regarding this. Informed pt per notes An outpatient MMA embolization was also recommended to the patient . Pt is currently scheduled for f/u HCT and appt with JT 08/08/22, please advise if pt is/should be considered for procedure or if this will be reevaluated after HCT. IAGE PERFORMER documented in this encounter Plan of Treatment [...] on stairs Contact your local community or [facility] for information on exercise, fall prevention programs, or options for improving home safety. documented as of this encounter Visit Diagnoses Not on filedocumented in this encounter Care Teams Telecommunications Project Manager Relationship Specialty [place] [address] [facility] [address] [place] [address] Rheumatology 02/21/17 Lashay Downs, RN Registered Nurse Pain Management 06/17/17 Duke Do, RN Registered Nurse 09/09/17 Ngozi Petty MD Radiation Oncologist Radiation Oncology 02/05/19 Jose Roberto Marx MD Referring Physician Otolaryngology 02/05/19 documented as of this encounter
--- OUTSIDE RECORDS SUMMARY | 2024-06-14 16:47 | XMS_ITS | Encounter Summary ---
Author Organization [facility] Address [address] [place] [address] Care Team Providers Care Marble Machine Operator Name Role Phone Criss Blanco MD Unavailable Lashay Downs RN Unavailable Unavailab Duke Goodwin RN Unavailable UnavailNgozi Husain MD Unavailable [phone] Jose Roberto Marx MD Unavailable [phone] Grey Tomas MD Primary Care Provider [phone] Reason for Referral * MRI/CAT/PET Scan (Routine) - Closed Specialty Diagnoses / Procedures Referred By Alcira forrest Referred To Contact Radiology Diagnoses SDH (subdural hematoma) (HCC) Procedures CT Head WO Contrast Baldo Bailey PA [address] [facility] [address] [place] [address] Phone: tel: fax: [place] [address] [place] [address] Referral ID Status Reason Start Date Expiration Date Visits Re quested Visits Authorized [id number] Closed 10/10/2022 11/09/2023 1 1 Reason for Visit * MRI/CAT/PET Scan (Routine) - Closed Specialty Diagnoses / Procedures Referred By Contac t Referred To Contact Radiology Diagnoses SDH (subdural hematoma) (HCC) Procedures CT Head WO Contrast Baldo Bailey PA [address] [place] [address] Phone: tel: fax: [facility] SUS[place] Espinoza [phone] Referral ID Status Reason Start Date Expiration Date Visits Re quested Visits Authorized [id number] Closed 10/10/2022 11/09/2023 1 1 Encounter Details Date Type Department Care Team (Latest Contact Info) Description 01/17/2023 11:10 AM CDT - 01/17/2023 11:59 PM CDT Hospital Encounter [facility] [address] [address] SDH (subdural hematoma) (HCC) Discharge Disposition: Discharge [...] on file 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 Gender Identity Not on file Sexual Orientation Not on file 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 on file Not on natalie e documented as of this encounter Medications at Time of Discharge finasteride (PROSCAR) 5 mg tabletIndications :benign prostatic hyperplasia with lower urinary tract sx Take 1 tablet (5 mg total) by mouth animal care assistant before breakfast multivitamin capsuleIndication s:Vitamin Deficiency [...] mg tablet Take 10 mg by mouth animal care assistant before breakfast 3 famotidine (PEPCID) 40 mg tablet Take 1 tablet (40 mg total) by mouth nightly 03/28/2020 3 fluticasone propionate (FLONASE) 50 mcg/actuation nasal spray Administer 1 spray into each nostril animal care assistant before breakfast 04/12/2022 3 folic acid (FOLVITE) 1 mg tablet Take 1 tablet (1 mg total) by mouth animal care assistant before breakfast 3 hydrOXYchloroQUIN E (PLAQUENIL) 200 [...] 2 capsules (40 mg total) by mouth animal care assistant before breakfast 3 oxyCODONE (ROXICODONE) 5 mg [...] CONTRAST Schedule Routine, Read Routine (OP Routine) 01/17/2023 11:19 AM CDT SDH (subdural hematoma) (HCC) documented in this encounter Results * CT Head WO Contrast (01/17/2023 11:19 AM CDT) Anatomical Region Laterality Modality Head and Neck N/A Computed Tomogra phy 01/17/2023 11:3 9 AM CDT Impressions 01/17/2023 11:39 AM CDT 1. ??Left cerebral convexity subdural hematoma, slightly increased in size. 2. ??New mixed attenuation right cerebral convexity subdural hematoma with a maximal thickness of 0.4 cm. Electronically signed by: Anjel Hutchins M.D. Narrative 01/17/2023 11:39 AM CDT EXAMINATION: Computed tomography (CT) of the head without contrast HISTORY: Patient is a 77-year-old male who presents for follow-up of a subdural hematoma. TECHNIQUE: CT of the head was performed without contrast according to standard protocol. COMPARISON: CT the head performed on 10/10/2022. FINDINGS: Since the previous examination, the left cerebral convexity subdural hematoma has mildly increased in size. ??This subdural hematoma remains mixed in attenuation. ??The maximal thickness has increased in size from 0.6 cm to 0.8 cm. ??A new subdural hematoma is seen overlying the right cerebral convexity. ??This subdural collection is also mixed in attenuation. ??The maximal thickness of this subdural collection is 0.4 cm. ??Calcifications are seen along the course of the A2 segments of both anterior cerebral arteries. ??The chacko-white matter differentiation is normal. ??No midline shift is present. The ventricles are normal in size and position without evidence of hydrocephalus. ??The orbits are unremarkable. ??Mild mucosal thickening is present within the frontal, ethmoid, and sphenoid sinuses. Aerated mucus is present within the right sphenoid sinus. ??No fractures are identified. Procedure Note Anjel Hutchins MD - 01/17/2023 EXAMINATION: Computed tomography (CT) of the head without contrast HISTORY: Patient is a 77-year-old male who presents for follow-up of a subdural hematoma. TECHNIQUE: CT of the head was performed without contrast according to standard protocol. COMPARISON: CT the head performed on 10/10/2022. FINDINGS: Since the previous examination, the left cerebral convexity subdural hematoma has mildly increased in size. This subdural hematoma remains mixed in attenuation. The maximal thickness has increased in size from 0.6 cm to 0.8 cm. A new subdural hematoma is seen overlying the right cerebral convexity. This subdural collection is also mixed in attenuation. The maximal thickness of this subdural collection is 0.4 cm. Calcifications are seen along the course of the A2 segments of both anterior cerebral arteries. The chacko-white matter differentiation is normal. No midline shift is present. The ventricles are normal in size and position without evidence of hydrocephalus. The orbits are unremarkable. Mild mucosal thickening is present within the frontal, ethmoid, and sphenoid sinuses. Aerated mucus is present within the right sphenoid sinus. No fractures are identified. IMPRESSION: 1. Left cerebral convexity subdural hematoma, slightly increased in size. 2. New mixed attenuation right cerebral convexity subdural hematoma with a maximal thickness of 0.4 cm. Electronically signed by: Anjel Hutchins M.D. us [facility] IM[facility] CT PROCEDURES Final R esult documented in this encounter Visit Diagnoses Diagnosis SDH (subdural hematoma) (HCC) Subdural hemorrhage documented in this encounter Care Teams Marble Machine Operator Relationship Specialty Start Date End Date Grey Tomas MD PCP - General Family Practice 07/27/22 [place] [address] [facility] [address] [place] [address] Rheumatology 02/21/17 Lashay Downs, RN Registered Nurse Pain Management 06/17/17 Duke Do, RN Registered Nurse 09/09/17 Ngozi Petty MD Radiation Oncologist Radiation Oncology 02/05/19 Jose Roberto Marx MD Referring Physician Otolaryngology 02/05/19 documented as of this encounter
--- OUTSIDE RECORDS SUMMARY | 2024-06-14 16:47 | XMS_ITS | Encounter Summary ---
Author Organization [facility] Address [address] [place] [address] Phone Care Team Providers Care Multiple Sclerosis Nurse Name Role Phone Criss Blanco MD Unavailable Lashay Downs RN Unavailable Unavailab Duke Goodwin RN Unavailable UnavailNgozi Husain MD Unavailable [phone] Jose Roberto Marx MD Unavailable [phone] Encounter Details Date Type Department Care Team (Late st Contact Info) Description 07/02/2022 Telephone [place] [id number] [facility] Medical Office Building [address] [place] [address] Trina Jung RN Social History Tobacco Use Types Packs/Day Years [...] file Legal 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 Appt to be printed on AVS at discharge. Will alsomail home appt reminders. F PROGRAM OFFICER * Telephone Encounter - Trina Jung RN - 07/02/2022 11:11 AM CST ----- Message from Oneida Read MD PhD sent at 07/01/2022 7:55 PM CHIEF PROGRAM OFFICER ----- Regarding: Follow-up Please schedule a follow-up appointment for Samuel Sanchez (: [id number]) to be seen by NursePractitioner in [address] scan of the brain without contrast. They will also be following up with tbd. 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 Their disposition is yet to be determined. Notable items: Steroids: none Antibiotics: none Anticoagulation/antiplatelet agents: none Anti-epileptic drugs: Keppra x7d Wound closure: n/a Thank you Oneida Read MD PhD F PROGRAM OFFICER documented in this encounter Plan of Treatment [...] on stairs Contact your local community or [facility] for information on exercise, fall prevention programs, or options for improving home safety. documented as of this encounter Visit Diagnoses Not on filedocumented in this encounter Care Teams Multiple Sclerosis Nurse Relationship Specialty [place] [address] [facility] [address] [place] [address] Rheumatology 02/21/17 Lashay Downs, GAY Registered Nurse Pain Management 06/17/17 Duke Do, RN Registered Nurse 09/09/17 Ngozi Petty MD Radiation Oncologist Radiation Oncology 02/05/19 Jose Roberto Marx MD Referring Physician Otolaryngology 02/05/19 documented as of this encounter
--- OUTSIDE RECORDS SUMMARY | 2024-06-14 16:47 | XMS_ITS | Encounter Summary ---
Author Organization [facility] Address [address] [place] [address] Phone Care Team Providers Care Living Skills Advisor Name Role Phone Criss Blanco MD Unavailable Lashay Downs RN Unavailable Unavailab Duke Goodwin RN Unavailable UnavailNgozi Husain MD Unavailable [phone] Jose Roberto Marx MD Unavailable [phone] Grey Tomas MD Primary Care Provider [phone] Encounter Details Date Type Department Care Team (Late st Contact Info) Description 01/31/2023 9:45 AM CDT Office Visit [facility] Neurosurgery [address] [facility] Advanced Medicine 6th [place] [address] [place] [address] Aston Grubbs MD [address] [place], [place] [id number] SDH (subdural hematoma) (HCC) (Primary Dx) Social [...] on file 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 Gender Identity Not on file Sexual Orientation Not on file Occupation Industry Job Start Date Job End Date Retired Not on file Not on file Not on file documented as of this encounter Last Filed Vital Signs Vital Sign Reading Time Taken Comments Blood Pressure 124/81 01/31/2023 9:29 AM CDT Pulse 75 01/31/2023 9:29 AM CDT Temperature - - Respiratory Rate - - Oxygen Saturation - - Inhaled Oxygen Concentration - - Weight 98.4 kg (217 lb) 01/31/2023 9:29 AM CDT Height 185.4 cm (6' 1 ) 01/31/2023 9:29 AM CDT Body Mass Index 28.63 01/31/2023 9:29 AM CDT documented in this encounter Progress Notes * Aston Grubbs MD - 01/31/2023 9:45 AM CDT Images from the original note were not included. Department of Neurological Surgery Aston Grubbs M.D. [facility] Department of Neurological Surgery [address] [place] [address] NEW CLINIC VISIT Patient Name: SAMUEL HUFFMAN Medical Record Number (MRN): [id number] Date of (): 1945 Encounter Date: 01/31/2023 PRIMARY CARE PROVIDER: Grey Tomas MD REFERRING PROVIDER: Grey Tomas MD CHIEF COMPLAINT Headache HISTORY OF THE PRESENT ILLNESS Samuel Huffmna is a 77 y.o. 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 He had a mechanical fall in June and sustained a left convexity subdural hematoma which was relatively thin and managed with imaging surveillance by my partner Dr. Martínez. On continued imaging surveillance, he was found to have enlargement of the left subdural hematoma and development of a new mixed density right-sided subdural hematoma. More recently in the last several weeks he has developed head pressure/frontal headaches as well. He was evaluated by our physicianassistant Mr. Baldo Bailey and referred to me for evaluation for middle meningeal artery embolization He denies any focal weakness or sensory changes. He has not had any seizures. 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 DDD (degenerative disc disease), [...] Chronic cough Chronic panethmoidal sinusitis Chronic pansinusitis Subdural hematoma (HCC) Past Medical History: Diagnosis Date Allergic rhinitis [...] OTHER MEDICAL hemorroids; Comments: Had done at [facility] in [place] HX OTHER MEDICAL bladder infection HX OTHER [...] lesion LITHOTRIPSY 5 or 6 times - [id number] ORCHIECTOMY Right OTHER SURGICAL HISTORY 04/18/2020 Suspension microlaryngoscopy with KTP laser treatment-multiple PROSTATE SURGERY Pinched Prostate: surgically repaired ROTATOR CUFF REPAIR Right and removal of bone spurs SHOULDER SURGERY Right bone spurs VASECTOMY Current Outpatient Medications on File Prior to Visit Medication Sig Dispense Refill finasteride (PROSCAR) 5 mg tablet Take 1 tablet (5 mg total) by mouth pier hand helper before breakfast hydrOXYchloroQUINE (PLAQUENIL) 200 mg tablet Take 2 tablets (400 mg total) by mouth daily Hasn't started taking yet. Awaiting Rheum. appointment omeprazole (PriLOSEC) 40 mg capsule Take 1 capsule (40 mg total) by mouth every morning UNABLE TO FIND Take 1 each by mouth nightly as needed THC gummie-25mg vit A/vit C/vit E/zinc/copper (PRESERVISION AREDS ORAL) Take 1 capsule by mouth 2 (two) times a day multivitamin capsule Take 1 capsule by mouth every morning No current facility-administered medications on file prior to visit. Allergies Allergen Reactions Perfume Swelling, Cough and Shortness of breath Mold Unknown Augmentin [Amoxicillin-Pot Clavulanate] Dizziness Cat Dander Eye irritation Hydrocodone Itching Vicodin [Hydrocodone-Acetaminophen] Itching Social History Tobacco Use Smoking status: Former Packs/day: 1.50 Years: 30.00 Additional pack years: 0.00 Total pack years: 45.00 Types: Cigarettes Start date: 1958 Quit date: 1995 Years since quittin.8 Smokeless tobacco: Never Substance and Sexual Activity Drug use: Yes Types: Medical marijuana Sexual activity: Defer Alcohol Use: Not At Risk (03/07/2023) AUDIT-C Frequency of Alcohol Consumption: Never Average Number of Drinks: Patient does not drink Frequency of Binge Drinking: Never Family History Adopted: Yes Problem Relation Age of Onset Other Other adopted Other Other adopted Anesthesia problems Neg Hx REVIEW OF SYSTEMS Please see scanned intake questionnaire. PHYSICAL EXAM: VITAL SIGNS Vitals: 01/31/23 0929 BP: 124/81 Pulse: 75 Weight: 98.4 kg (217 lb) Height: 185.4 cm (6' 1 ) NEUROLOGICAL EXAM: The patient is awake, alert, oriented to person, place and time. Speech is clear and fluent. Pupils equal, round, reactive to light. Extraocular movements are intact. Face is symmetrical. Tongue is midline. Motor: 5/5 throughout, no pronator drift Sensation is intact to light touch REVIEW OF IMAGING: I have reviewed the CT head with and without contrast performed on 01/17/23 and concur with the radiology report which is listed below. arrative & Impression EXAMINATION: Computed tomography (CT) of the head [...] cm. Electronically signed by: Anjel Hutchins M.D. ASSESSMENT AND PLAN: Samuel Huffman is a 77 y.o. male with enlarging left convexity mixed density subdural hematoma and new right convexity subdural mixed density hematoma. We discussed that management options for subdural hematoma include imaging surveillance with head CT scan, nilton hole drainage or mini craniotomy versus middle meningeal artery embolization. He has had progression of the left-sided subdural hematoma on imaging surveillance and development of a new right-sided subdural hematoma. He has mild symptoms on the subdural hematoma at present. I therefore discussed the treatment is reasonable. Given the small size of the subdural hematomas, have recommended middle meningeal artery embolization as a 1st line approach. We discussed that a recent multi-center study has indicated that in patients with mild to no symptoms who underwent MMA embolization alone, about 87% patients had more than 20% reduction in hematoma thickness, and 52% had more than 70% resolution of the subdural hematoma. I explained that the procedure involves arterial access via radial or femoral route, advancement of a guide catheter into the carotid artery followed by a baseline angiogram. Subsequently we catheterize the external carotid artery on the side of the hematoma and then select the middle meningeal artery with a microcatheter and microwire. We then perform a superselective angiogram in the MMA to confirm absence of any abnormal collaterals to the ophthalmic artery or intracranial circulation. As long as these are absent, we then embolize the vessel with PVA particles or liquid embolic agent. I explained that patients typically undergo this procedure under general anesthesia but sometimes we also do it with conscious sedation as well. After the procedure, patients are typically discharged home the same day. However, some patients may potentially need admission overnight for observation, depending on how they recover from the procedure and anesthesia. We discussed that the risks of the procedure include but are not limited to bleeding or ischemic stroke that could lead to weakness, paralysis, sensory changes, speech and comprehension difficulties, cranial neuropathies, vision loss, hearing loss, coma or even . We also discussed small risk of contrast related complications to the kidney. We also discussed that there is some risk of access site complications that could necessitate additional surgical or endovascular intervention. They expressed understanding of risks and would like to proceed. I will see him at the time of treatment Aston Grubbs MD Cerebrovascular/Endovascular & Skull Base Tumor Radiation Safety OfficerDecorating Supervisor of Neurological Surgery, Radiology and Neurology [facility], [place], [place] [facility] Office: [phone] documented in this encounter Plan of Treatment [...] on stairs Contact your local community or [facility] for information on exercise, fall prevention programs, or options for improving home safety. documented as of this encounter Visit Diagnoses Diagnosis SDH (subdural hematoma) (HCC)- Primary Subdural hemorrhage documented in this encounter Historical Medications * This list may reflect changes made after this encounter. pramipexole (MIRAPEX) 0.25 mg tablet Take 1 tablet (0.25 mg total) by mouth nightly at bedtime 12/26/2022 3 polyethylene glycol (MIRALAX) 17 gram/dose bulk powder DISSOLVE 17 GRAMS IN LIQUID AND DRINK BY MOUTH DAILY 01/24/2023 3 hydrOXYchloroQUI NE (PLAQUENIL) 200 mg tablet Take 2 tablets (400 mg total) by mouth daily Hasn't started taking yet. Awaiting Rheum. appointment 12/17/2022 4 amoxicillin-clav ulanate (AUGMENTIN) 875-125 mg per tablet Take 1 tablet by mouth every 12 (twelve) hours 12/24/2022 3 added in this encounter Care Teams Living Skills Advisor Relationship Specialty Start Date End Date Grey Tomas MD PCP - General Family Practice 07/27/22 [place] [address] [facility] [address] [place] [address] Rheumatology 02/21/17 Lashay Downs, RN Registered Nurse Pain Management 06/17/17 Duke Do, RN Registered Nurse 09/09/17 Ngozi Petty MD Radiation Oncologist Radiation Oncology 02/05/19 Jose Roberto Marx MD Referring Physician Otolaryngology 02/05/19 documented as of this encounter
--- OUTSIDE RECORDS SUMMARY | 2024-06-14 16:47 | XMS_ITS | Encounter Summary ---
Author Organization [facility] Healthcare Address [address] [place] [address] Care Team Providers Care Dental Laboratory Manager Name Role Phone Criss Blanco MD Unavailable Lashay Downs RN Unavailable Unavailab Duke Goodwin RN Unavailable UnavailNgozi Husain MD Unavailable [phone] Jose Roberto Marx MD Unavailable [phone] Grey Tomas MD Primary Care Provider [phone] Reason for Referral * MRI/CAT/PET Scan (Routine) - Closed Specialty Diagnoses / Procedures Referred By Alcira forrest Referred To Contact Radiology Diagnoses SDH (subdural hematoma) (HCC) Procedures CT Head WO Contrast Baldo Bailey PA [address] [facility] [address] [place] [address] Phone: tel: fax: [place] [address] [place] [address] Referral ID Status Reason Start Date Expiration Date Visits Re quested Visits Authorized [id number] Closed 07/02/2022 08/01/2023 1 1 DISPLAYS ANALYST Reason for Visit * MRI/CAT/PET Scan (Routine) - Closed Specialty Diagnoses / Procedures Referred By Contac t Referred To Contact Radiology Diagnoses SDH (subdural hematoma) (HCC) Procedures CT Head WO Contrast Baldo Bailey PA [address] [place] [address] Phone: tel: fax: [facility] S[place] Espinoza [address] Referral ID Status Reason Start Date Expiration Date Visits Re quested Visits Authorized [id number] Closed 07/02/2022 08/01/2023 1 1 Encounter Details Date Type Department Care Team (Latest Contact Info) Description 08/08/2022 12:27 PM IAP DISPLAYS ANALYST - 08/08/2022 11:59 PM IAP DISPLAYS ANALYST Hospital Encounter [facility] [address] [address] SDH (subdural hematoma) Discharge Disposition: Discharge to home or self [...] on file Legal Sex Male 12:56 AM IAP DISPLAYS ANALYST Gender Identity Not on file Sexual Orientation Not on file 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 on file Not on natalie e documented as of this encounter Medications at Time of Discharge finasteride (PROSCAR) 5 mg tabletIndications :benign prostatic hyperplasia with lower urinary tract sx Take 1 tablet (5 mg total) by mouth early childhood assistant before breakfast multivitamin capsuleIndication s:Vitamin Deficiency [...] mg tablet Take 10 mg by mouth early childhood assistant before breakfast 3 famotidine (PEPCID) 40 mg tablet Take 1 tablet (40 mg total) by mouth nightly 03/28/2020 3 fluticasone propionate (FLONASE) 50 mcg/actuation nasal spray Administer 1 spray into each nostril early childhood assistant before breakfast 04/12/2022 3 folic acid (FOLVITE) 1 mg tablet Take 1 tablet (1 mg total) by mouth early childhood assistant before breakfast 3 levETIRAcetam (KEPPRA) 500 mg [...] DAILY NEEDED FOR COLD SYMPTOMS 08/02/2022 3 omeprazole (PriLOSEC) 20 mg capsule Take 2 capsules (40 mg total) by mouth early childhood assistant before breakfast 3 oxyCODONE (ROXICODONE) 5 [...] stairs Contact your local community or [facility] for information on exercise, fall prevention programs, or options for improving home safety. documented as of this encounter Procedures Procedure Name Priority Date/Time Associated Diagnosis Comments CT HEAD WO CONTRAST Schedule Routine, Read Routine (OP Routine) 08/08/2022 12:34 PM IAP DISPLAYS ANALYST SDH (subdural hematoma) documented in this encounter Results * CT Head WO Contrast (08/08/2022 12:34 PM IAP DISPLAYS ANALYST) Anatomical Region Laterality Modality Head and Neck N/A Computed Tomogra phy 08/08/2022 1:40 PM IAP DISPLAYS ANALYST Impressions 08/08/2022 1:40 PM IAP DISPLAYS ANALYST Slightly mixed density subdural hematoma along the left cerebral convexity which is similar or slightly decreased in thickness compared to prior study. ??No midline shift. Electronically signed by: Waqas Ashraf MD, PHD Narrative 08/08/2022 1:40 PM IAP DISPLAYS ANALYST EXAMINATION: Noncontrast head CT HISTORY: Subdural hematoma follow-up. TECHNIQUE: Noncontrast CT of the brain was performed with images acquired from skull base to vertex. COMPARISON: 07/01/2022. FINDINGS: The left cerebral convexity subdural hematoma demonstrates mildly hyperdense and similar or mildly decreased in thickness, now measuring at left prefrontal 6 mm in thickness previously 8 mm. ??No midline shift. Unchanged appearance of the calcification in the anterior cerebral artery. Topogram demonstrates no lytic lesions or fractures. ??Ventricles are of normal size and morphology. No mass effect or midline shift is present. The chacko-white matter differentiation is normal. The visualized portions of the orbits are normal. The visualized portions of the mastoids are normal. The visualized portions of the paranasal sinuses are normal. No fractures are identified. Procedure Note Waqas Ashraf MD PhD - 08/08/2022 EXAMINATION: Noncontrast head CT HISTORY: Subdural hematoma follow-up. TECHNIQUE: Noncontrast CT of the brain was performed with images acquired from skull base to vertex. COMPARISON: 07/01/2022. FINDINGS: The left cerebral convexity subdural hematoma demonstrates mildly hyperdense and similar or mildly decreased in thickness, now measuring at left prefrontal 6 mm in thickness previously 8 mm. No midline shift. Unchanged appearance of the calcification in the anterior cerebral artery. Topogram demonstrates no lytic lesions or fractures. Ventricles are of normal size and morphology. No mass effect or midline shift is present. The chacko-white matter differentiation is normal. The visualized portions of the orbits are normal. The visualized portions of the mastoids are normal. The visualized portions of the paranasal sinuses are normal. No fractures are identified. IMPRESSION: Slightly mixed density subdural hematoma along the left cerebral convexity which is similar or slightly decreased in thickness compared to prior study. No midline shift. Electronically signed by: Waqas Ashraf MD, PHD us Baldo Floyd [facility] [facility] CT PROCEDURES Final R esult documented in this encounter Visit Diagnoses Diagnosis SDH (subdural hematoma) (HCC) Subdural hemorrhage documented in this encounter Care Teams Dental Laboratory Manager Relationship Specialty Start Date End Date Grey Tomas MD PCP - General Family Practice 07/27/22 [place] [address] [facility] [address] [place] [address] Rheumatology 02/21/17 Lashay Downs, RN Registered Nurse Pain Management 06/17/17 Duke Do, RN Registered Nurse 09/09/17 Ngozi Petty MD Radiation Oncologist Radiation Oncology 02/05/19 Jose Roberto Marx MD Referring Physician Otolaryngology 02/05/19 documented as of this encounter
--- OUTSIDE RECORDS SUMMARY | 2024-06-14 16:47 | XMS_ITS | Encounter Summary ---
Author Organization [facility] Address [address] [place] [address] Phone Care Team Providers Care Protection Agent Name Role Phone Criss Blanco MD Unavailable Lashay Downs RN Unavailable Unavailab Duke Goodwin RN Unavailable UnavailNgozi Husain MD Unavailable [phone] Jose Roberto Marx MD Unavailable [phone] Grey Tomas MD Primary Care Provider [phone] Encounter Details Date Type Department Care Team (Late st Contact Info) Description 10/23/2022 Telephone [place] [id number] [facility] Medical Office Building [address] [place] [address] Carlie Katz Social History Tobacco Use Types Packs/Day Years [...] on file 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 Patient will need to arrive at [facility] for registration at 11:[address] is scheduled for 12:20 pm. Patient will follow up with Baldo in Medical Office [facility] [address] - [address] at 1:15 pm (with arrival time of 1:00 pm). I will mail appt reminder letter and map to patient for January2023 appts. ----- Message from Amina Richard MA sent at 10/11/2022 10:11 AM CDT ----- Regarding: FW: CT head in three months, apt same day ----- Message ----- From: Baldo Bailey PA Sent: 10/10/2022 1:29 PM CDT To: Devante Pelaez Adult Follow-Up Appointment Pool Subject: CT head in three months, apt same day Can we please order: CT head for patient in three months with apt same day here at [facility]? Also can we repeat his lumbar xrays at that apt? documented in this encounter Plan of Treatment [...] on stairs Contact your local community or [facility] for information on exercise, fall prevention programs, or options for improving home safety. documented as of this encounter Visit Diagnoses Not on filedocumented in this encounter Care Teams Protection Agent Relationship Specialty Start Date End Date Grey Tomas MD PCP - General Family Practice 07/27/22 [place] [address] [facility] [address] [place] [address] Rheumatology 02/21/17 Lashay Downs, RN Registered Nurse Pain Management 06/17/17 Duke Do, RN Registered Nurse 09/09/17 Ngozi Petty MD Radiation Oncologist Radiation Oncology 02/05/19 Jose Roberto Marx MD Referring Physician Otolaryngology 02/05/19 documented as of this encounter
--- OUTSIDE RECORDS SUMMARY | 2024-06-14 16:47 | XMS_ITS | Encounter Summary ---
Author Organization [facility] Address [address] [place] [address] Phone Care Team Providers Care Grocery Department Manager Name Role Phone Criss Blanco MD Unavailable Lashay Downs RN Unavailable Unavailab Duke Goodwin RN Unavailable UnavailNgozi Husain MD Unavailable [phone] Jose Roberto Marx MD Unavailable [phone] Grey Tomas MD Primary Care Provider [phone] Reason for Visit * Reason Comments voice follow up * Consultation (Routine) - Closed Specialty Diagnoses / Procedures Referred By Contac t Referred To Contact Otolaryngology Diagnoses 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 provider found CHIEF [...] invasion or dysplasia. Today he reports no new issues. His voice will give out after talking for long periods of time. No throat pain or ear pain. Unfortunately his earlier EXAM: There were no vitals taken for [...] EXAM: PROCEDURE: Flexible Laryngoscopy with Stroboscopy Indication: Dysphonia Attending: Dariana Herrera MD Findings: Nasopharynx clear [...] of CIS in the same area (2021). He is doing well overall. MEDICATIONS ORDERED: No orders of the defined types were placed in this encounter. ORDERS PLACED: No orders of the defined types were placed in this encounter. DISPOSITION:6 weeks Dariana Herrera MD [employer] [place] Measure[employer] [facility] Division of Laryngology Department of Otolaryngology--Head & Neck Surgery MILL OPERATOR documented in this encounter Plan of [...] on stairs Contact your local community or [facility] for information on exercise, fall prevention programs, or options for improving home safety. documented as of this encounter Visit Diagnoses Diagnosis Carcinoma in situ of larynx- Primary documented in this encounter Care Teams Grocery Department Manager Relationship Specialty Start Date End Date Grey Tomas MD PCP - General Family Practice 07/27/22 [place] [address] [facility] [address] [place] [address] Rheumatology 02/21/17 Lashay Downs, GAY Registered Nurse Pain Management 06/17/17 Duke Do, GAY Registered Nurse 09/09/17 Ngozi Petty MD Radiation Oncologist Radiation Oncology 02/05/19 Jose Roberto Marx MD Referring Physician Otolaryngology 02/05/19 documented as of this encounter
--- OUTSIDE RECORDS SUMMARY | 2024-06-14 16:47 | XMS_ITS | Encounter Summary ---
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] Procedures CO LARGSC EXC STEFANIA&/STRPG CORDS/EPIGL MCRSCP/TLSCP MICROLARYNGOSCOPY WITH BIOPSY/EXCISION LESION LASER KTP Nakita Herrera MD [address] [place] [address] Phone: tel: fax: Referral ID Status Reason Start Date Expiration Date Visits Re quested Visits Authorized [id number] 05/01/2022 1 1 Encounter Details Date Type Department Care Team (Latest Contact Info) Description 05/07/2022 7:19 AM DIESEL PILE HAMMER OPERATOR - 05/07/2022 11:03 AM DIESEL PILE HAMMER OPERATOR Hospital Encounter [facility] Operating Room [address] SUSIE Marquez [address] Nakita Herrera MD [address] [place] [address] Dysplasia of larynx Discharge Disposition: Discharge to home or self [...] on file Legal Sex Male 12:56 AM DIESEL PILE HAMMER OPERATOR Gender Identity Not on file Sexual Orientation Not on file 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 on file Not on natalie e documented as of this encounter Last Filed Vital Signs Vital Sign Reading Time Taken Comments Blood Pressure 127/68 05/07/2022 10:20 AM DIESEL PILE HAMMER OPERATOR Pulse 75 05/07/2022 10:20 AM DIESEL PILE HAMMER OPERATOR Temperature 36.2 ??C (97.2 ??F) 05/07/2022 10:[address] Respiratory Rate 17 05/07/2022 10:20 AM DIESEL PILE HAMMER OPERATOR Oxygen Saturation 92% 05/07/2022 10:20 AM DIESEL PILE HAMMER OPERATOR Inhaled Oxygen Concentration - - Weight 98 kg (216 lb) 05/07/2022 7:26 AM DIESEL PILE HAMMER OPERATOR Height 185.4 cm (6' 1 ) 05/07/2022 7:26 AM DIESEL PILE HAMMER OPERATOR Body Mass Index 28.5 05/07/2022 7:26 AM DIESEL PILE HAMMER OPERATOR documented in this encounter Discharge Instructions * Discharge Instructions* Margareth Flores RN - 05/07/2022 8:12 AM DIESEL PILE HAMMER OPERATOR ENT Post Operative Discharge Instructions Procedure: Direct [...] needed. - Stool Softener: Take stool softener ([id number] or prescription) while taking narcotic medication to [...] or contact the main office line at [phone]. Follow up: You should follow up in Nakita Eddy MD's clinic as scheduled below. [facility] - Medical Office Building [address] [place] [address] [address] OTHER FOLLOW UP: 1. PCP - for management of all chronic illnesses Future Appointments Date Time Provider Department Center 2022 10:20 AM Nakita Herrera MD [facility]N [address] OY Phone numbers Appointment Scheduling: Urgent Concerns after hours or Weekends: Call and ask for the ENT resident consumer product advisor. During Regular Business Hours (8am-5pm Saturday through Saturday): [phone] Herrera's nurse Questions: [...] of narcotic pain medication include Percocet, Oxycontin, [place], Hydrocodone, and Oxycodone. FAQs (frequently asked questions) [...] physical therapy, we are available to assist: [facility] STAR: [facility] [phone] [place] [phone] [facility] [phone] How are some things that you can [...] given by your doctor or other health animal care provider. EL PILE HAMMER OPERATOR EL PILE HAMMER OPERATOR EL PILE HAMMER OPERATOR documented in this encounter Medications at Time of Discharge finasteride (PROSCAR) 5 mg tabletIndications :benign prostatic hyperplasia with lower urinary tract sx Take 1 tablet (5 mg total) by mouth early childhood special educator before breakfast multivitamin capsuleIndication s:Vitamin Deficiency Prevention Take 1 capsule by mouth every morning vit A/vit C/vit E/zinc/copper (PRESERVISION AREDS ORAL) Take 1 capsule by mouth 2 (two) times a day cetirizine (ZyrTEC) 10 mg tablet Take 10 mg by mouth early childhood special educator before breakfast 3 famotidine (PEPCID) 40 mg tablet Take 1 tablet (40 mg total) by mouth nightly 03/28/2020 3 fluticasone propionate (FLONASE) 50 mcg/actuation nasal spray Administer 1 spray into each nostril early childhood special educator before breakfast 04/12/2022 3 folic acid (FOLVITE) 1 mg tablet Take 1 tablet (1 mg total) by mouth early childhood special educator before breakfast 3 methotrexate 2.5 mg tablet Take 6 tablets (15 mg total) by mouth once a week saturday02/02/2020 3 montelukast (SINGULAIR) 10 mg tablet Take 10 mg by mouth nightly 04/12/2022 3 omeprazole (PriLOSEC) 20 mg capsule Take 2 capsules (40 mg total) by mouth early childhood special educator before breakfast 3 oxyCODONE (ROXICODONE) 5 mg [...] Physical Exam: General: NAD, alert, gravely voice ict quality assurance engineer: NC, AT Eyes: Sclera white, no injection [...] on the above findings, I consider Pasquale Isaac Daniel to be an acceptable risk for : Procedure(s): MICROLARYNGOSCOPY WITH BIOPSY/EXCISION LESION LASER KTP Cosigned by Nakita Herrera MD at 05/07/2022 8:18 AM DIESEL PILE HAMMER OPERATOR EL PILE HAMMER OPERATOR EL PILE HAMMER OPERATOR Source Note - Elizabeth Zelda JOSEPH Muhammad - 05/02/2022 9:30 AM DIESEL PILE HAMMER OPERATOR Images from the original note were not included. [facility] Preoperative Assessment [facility] Planning Preoperative Evaluation Record Evaluation type/location: TPAP from [facility] Planned procedure site: [facility] OR Date: 05/02/22 NOTE: This note [...] Cardiovascular Pertinent negatives: hypertension ; CAD ; DE ; CABG ; valvular heart disease; atrial [...] via telephone and in writing sent via [employer] mail. Patient verbalized understanding of preoperative plan. TPAP Complete Preoperative evaluation performed by Zelda Johnson NP on 05/02/22 at 9:34 AM. Patient Active Problem List Diagnosis ??? 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 Headache ??? intermediate designer use of drug ??? DDD (degenerative disc [...] ear drum patch ??? HX OTHER MEDICAL 1978 testicle ??? HX OTHER MEDICAL Headache, migraine ??? HX OTHER MEDICAL 1981 Bisept tendonitis ??? HX OTHER MEDICAL 1994 Pinched Prostate ??? HX OTHER MEDICAL 2000 kidney stone ??? HX OTHER MEDICAL hemorroids; Comments: Had done at [facility] in [place] ??? HX OTHER MEDICAL bladder infection ??? HX OTHER MEDICAL kidney stone ??? Low back pain ??? Migraine ??? Rheumatoid arthritis (HCC) Past Surgical History: Procedure Laterality Date ??? BICEPS TENODESIS Left 1969's ??? COLONOSCOPY 03/14/2020 ??? CYSTOSCOPY 2019 ??? EAR SURGERY Left repair perforated eardrum ??? LARYNGOSCOPY Right 01/09/2019 Direct laryngoscopy with biopsy ??? LARYNGOSCOPY Right 02/16/2019 Suspension microlaryngoscopy with KTP laser photoablation Right vocal fold lesion ??? LITHOTRIPSY 5 or 6 times s - [id number] ??? ORCHIECTOMY Right 1970's ??? OTHER SURGICAL HISTORY 04/18/2020 Suspension microlaryngoscopy with KTP laser treatment-multiple ??? PROSTATE SURGERY Pinched Prostate: surgically repaired ??? ROTATOR CUFF REPAIR Right and removal of bone spurs s ??? SHOULDER SURGERY Right bone spurs ??? VASECTOMY s Allergies Allergen Reactions ??? Perfume Swelling, Cough and Shortness of breath ??? Mold Unknown ??? Cat Dander Eye irritation ??? Hydrocodone Itching ??? Vicodin [Hydrocodone-Acetaminophen] Itching Med List Status: Nurse Complete Set By: Tejal Mariano RN at 05/01/2022 5:28 PM Taking? Last Dose Start Date End Date Provider cetirizine (ZyrTEC) 10 mg tablet 05/01/2022 -- -- Emmie Reynoso MD famotidine (PEPCID) 40 mg tablet 04/30/2022 03/28/20 -- Emmie Reynoso MD finasteride (PROSCAR) 5 mg tablet 05/01/2022 -- -- Emmie Reynoso MD fluticasone propionate (FLONASE) 50 mcg/actuation nasal spray 05/01/2022 04/12/22 -- Emmie Reynoso MD folic acid (FOLVITE) 1 mg tablet 05/01/2022 -- -- Emmie Reynoso MD methotrexate 2.5 mg tablet Past Week 02/02/20 -- Emmie Reynoso MD montelukast (SINGULAIR) 10 mg tablet 04/30/2022 [...] last 720 hours. Marcelle index score: 100 EL PILE HAMMER OPERATOR documented in this encounter Miscellaneous Notes [...] participated in the entirety of the procedure EL PILE HAMMER OPERATOR * Pre-Procedure Instructions - Zelda Johnson NP - 05/02/2022 9:10 AM DIESEL PILE HAMMER OPERATOR Center for Preoperative Assessment and Planning CPAP Clinic [facility]: [facility] The night before your surgery: * Do [...] with COVID-19. You test positive for COVID-19. EL PILE HAMMER OPERATOR * Perioperative Nursing Note - Tejal Mariano RN - 05/01/2022 5:34 PM CST Center for Preoperative Assessment and Planning Perioperative Nursing Note Telephone Preoperative Evaluation ([facility]) - TELEPHONE ONLY, NO PHYSICAL EXAM [...] Take 10 mg by mouth early childhood special educator before breakfast famotidine (PEPCID) 40 mg tablet Take 40 mg by mouth nightly finasteride (PROSCAR) 5 mg tablet Take 5 mg by mouth early childhood special educator before breakfast fluticasone propionate (FLONASE) 50 mcg/actuation nasal spray Administer 1 spray into each nostril early childhood special educator before breakfast folic acid (FOLVITE) 1 mg tablet Take 1 mg by mouth early childhood special educator before breakfast methotrexate 2.5 mg tablet Take 6 tablets by mouth once a week saturday montelukast (SINGULAIR) 10 mg tablet Take 10 mg by mouth nightly multivitamin capsule Take 1 capsule by mouth every morning omeprazole (PriLOSEC) 20 mg capsule Take 40 mg by mouth early childhood special educator before breakfast rOPINIRole (REQUIP) 1 mg tablet [...] Patient has advance directive, copy in chart Communication/Yardage Caller Needs Communication Needs: Glasses Assistive Devices/DME: Eyeglasses Hearing - Right Ear: Functional Hearing - Left Ear: Functional Discharge Planning Type of Residence: Private residence Living Arrangements: Spouse/significant other Support Systems: Spouse/significant other Assistance Needed: Ara to drive/care for pt Patient expects to be discharged to:: Private residence [place] NO ADDITIONAL COMMENTS/ FOLLOW UP EL PILE HAMMER OPERATOR * Pre-Procedure Instructions - Tejal Mariano RN [...] your insurance card, a photo ID (example: Operations Support Professionals's License) and a method of payment for [...] Chart. If you are having surgery at [facility], please arrive on the [...] Pathway to Excellent Care by the followinglink: [email or web address] How To Prepare Your [...] questions, please call the CPAP Staff at [phone], Saturday-Saturday 8am-4:30pm. All patients should read the below section: All visitors/patients are being asked to wear a clean face mask when entering the hospital. COVID 19 Updates & Visitor Policy: Please access [email or web address] for the most updated information. Information on [facility]: Please view [email or web address] (Patient & Visitor Information) for additional details regarding Advanced Directive forms, AWARE, directions, parking information, lodging, Internet access, dining and more. Information on [facility] or [facility] Surgery [place] ([facility]): Please view [email or web address] (Patient and Visitor Information) for parking/directions and more. For MyChart information, to activate account or password recovery, please go to [email or web address] or call [phone] (toll-free: [phone]). Information for Suicide Prevention: National Suicide Prevention Lifeline (7-681- 062-VANE (0445)). Surgery Times: For patients having surgery @ [facility], [facility], [facility] or [facility] Surgery [place] ([facility]), if your surgeon's office has not notified you of your surgery time by NOON THE BUSINESS DAY BEFORE your surgery, please call [phone] and ask for your surgeon's office Dr. Ashley Herrera. EL PILE HAMMER OPERATOR documented in this encounter Plan of [...] on stairs Contact your local community or [facility] for information on exercise, fall prevention programs, or options for improving home safety. documented as of this encounter Procedures Procedure Name Priority Date/Time Associated Diagnosis Comments SURGICAL PATHOLOGY Routine 05/07/2022 8: 56 AM DIESEL PILE HAMMER OPERATOR Dysplasia of larynx LASER KTP 05/07/2022 8:21 AM DIESEL PILE HAMMER OPERATOR Dysplasia of larynx Special Needs dedo excalibur, ossoff pilling, KTP laser MICROLARYNGOSCOPY WITH BIOPSY/EXCISION LESION 05/07/2022 8:21 AM DIESEL PILE HAMMER OPERATOR Dysplasia of larynx Special Needs dedo excalibur, ossoff pilling, KTP laser documented in this encounter Results * Surgical pathology (05/07/2022 8:56 AM DIESEL PILE HAMMER OPERATOR) Tissue (Mass/Tumor/Lesio n) 05/07/2022 8:56 AM DIESEL PILE HAMMER OPERATOR Tissue (Soft tissue biopsy) 05/07/2022 9:00 AM DIESEL PILE HAMMER OPERATOR Tissue (Soft tissue biopsy) 05/07/2022 9:05 AM DIESEL PILE HAMMER OPERATOR Tissue (Soft tissue biopsy) 05/07/2022 9:08 AM DIESEL PILE HAMMER OPERATOR Tissue (Soft tissue biopsy) 05/07/2022 9:13 AM DIESEL PILE HAMMER OPERATOR Tissue (Soft tissue biopsy) 05/07/2022 9:14 AM DIESEL PILE HAMMER OPERATOR Tissue (Soft tissue biopsy) 05/07/2022 9:19 AM DIESEL PILE HAMMER OPERATOR Narrative PATHOLOGY [facility] - 05/09/2022 10:48 AM DIESEL PILE HAMMER OPERATOR EPIC results best viewed via link to PDF [facility] [place] [address] Note to Patients: This report may contain [...] : ??1945 (Age: 76) Address: ??[address], [place] ??[address] Hospital #: ??[id number] Taken:05/07/2022 Received:05/07/2022 Reported: 05/09/2022 Patient Type: [facility] EP SAME Client ?[facility] Service: Surgery Location: Physician(s): ??Tree Lopez PA Sampat Sindhar, M.D. Diagnosis: A. ??Larynx, right vocal cord [...] was minute and was exhausted during processing. Valentin Bess M.D. History: The patient is a [...] processing.). ?? Labeled G1. Jar 0. ?? [email or web address]/07/2022 13:57 PA(s): So Mayer, BS, CT ([facility]) By this signature, I attest that the above diagnosis is based upon my personal examination of the slides(and/or other material). Addenda/Procedures The performance characteristics of some immunohistochemical stains, fluorescence in-situ hybridization tests and immunophenotyping by flow cytometry cited in this report (if any) were determined by the Surgical Pathology and Flow Cytometry Departments at [facility] as part of an ongoing chemistry quality control technician program and in compliance with federally mandated [...] Surgical Pathology and Flow Cytometry Departments of [facility]. ??It has not been cleared or approved by the U. S. Food and Drug Administration. IMAGES AND SCANNED DOCUMENTS, IF INCLUDED, ONLY VIEWABLE IN PDF VERSION OF REPORT Nakita Herrera MD LAB PATHOLOGY ORDER[facility] VINAY Final Result PATHOLOGY [facility] [phone] documented in this encounter Visit Diagnoses Diagnosis Dysplasia of larynx- Primary documented in this encounter Admitting Diagnoses Diagnosis [...] to floor. New Bag 05/07/2022 9:02 AM DIESEL PILE HAMMER OPERATOR Rate/Dose Verify 05/07/2022 8:16 AM DIESEL PILE HAMMER OPERATOR 30 mL/h r New Bag 05/07/2022 7:45 AM DIESEL PILE HAMMER OPERATOR 30 mL/hr 30 mL/hr documented in this encounter Discontinued Medications Medication Sig Discontinue Reason Start Date End Da te aspirin 81 mg chewable tablet Take 81 mg by mouth early childhood special educator before breakfast Error 05/01/2022 escitalopram (LEXAPRO) 10 [...] Take 10 mg by mouth early childhood special educator before breakfast 3 folic acid (FOLVITE) 1 mg tablet Take 1 tablet (1 mg total) by mouth early childhood special educator before breakfast 3 montelukast (SINGULAIR) 10 mg tablet Take 10 mg by mouth nightly 04/12/2022 3 lansoprazole (PREVACID) 30 mg capsule Take 30 mg by mouth 12/19/2021 2 fluticasone propionate (FLONASE) 50 mcg/actuation nasal spray Administer 1 spray into each nostril early childhood special educator before breakfast 04/12/2022 3 escitalopram (LEXAPRO) 10 mg tablet Take 10 mg by mouth daily 02/07/2022 2 aspirin 81 mg chewable tablet Take 81 mg by mouth early childhood special educator before breakfast 2 albuterol HFA (PROVENTIL HFA,VENTOLIN HFA,PROAIR HFA) 90 mcg/actuation inhaler INHALE 1 TO 2 PUFFS EVERY 4 TO 6 HOURS NEEDED FOR DIFFICULTY BREATHING 06/26/2021 2 added in this encounter Active and Recently Administered Medications Times are shown in DIESEL PILE HAMMER OPERATOR. Continuous Medication Order 05/05/2022 05/06/2022 05/07/2022 Lactated [...] 1 05/07/2022 Lactated Ringer's (LR) infusion 1 2 meperidine (DEMEROL) preserv ative free injection 12.5 mg 1 05/07/2022 naloxone (NARCAN) 0.4 mg/mL injection 0.04-0.4 mg 1 05/07/2022 ondansetron (ZOFRAN) injection 4 mg 1 05/07 oxymetazoline (AFRIN) 0.05 % nasal spray 1 05/07/2022 prochlorperazine (COMPAZINE) injection 5 mg 1 05/07/2022 scopolamine patch 72 hour 1 patch 1 022 sodium chloride 0.9% flush 0.5-20 mL 1 10/2021 sodium chloride 0.9% irrigation 1 2 Discharge Count Last Ordered Date First Orde red Date DISCHARGE PATIENT 1 05/07/2022 documented in this encounter Care Teams Distribution A Class Lineman Relationship Specialty [place] [address] [facility] [address] [place] [address] Rheumatology 02/21/17 Lashay Downs, RN Registered Nurse Pain Management 06/17/17 Duke Do, RN Registered Nurse 09/09/17 Ngozi Petty MD Radiation Oncologist Radiation Oncology 02/05/19 Jose Roberto Marx MD Referring Physician Otolaryngology 02/05/19 documented as of this encounter
--- OUTSIDE RECORDS SUMMARY | 2024-06-14 16:47 | XMS_ITS | Encounter Summary ---
Author Organization [facility] Address [address] [place] [address] Phone Care Team Providers Care Motorcyles Final Inspector Name Role Phone Criss Blanco MD Unavailable Lashay Downs RN Unavailable Unavailab Duke Goodwin RN Unavailable UnavailNgozi Husain MD Unavailable [phone] Jose Roberto Marx MD Unavailable [phone] Grey Tomas MD Primary Care Provider [phone] Reason for Visit * Reason Comments Follow-up Encounter Details Date Type Department Care Team (Late st Contact Info) Description 10/31/2022 2:00 PM CDT Office Visit 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 provider found CHIEF [...] Today he reports no changes in his voice.He continues to have some vocal fatigue. No pain in his throat. No difficulty swallowing or breathing. EXAM: There were no vitals taken for [...] weeks. DISPOSITION: 6-8 weeks Dariana Herrera MD Endless Belt Finisher [facility] Division of Laryngology [...] on stairs Contact your local community or [facility] for information on exercise, fall prevention programs, or options for improving home safety. documented as of this encounter Visit Diagnoses Diagnosis Lesion of vocal fold- Primary Carcinoma in situ of larynx documented in this encounter Care Teams Motorcyles Final Inspector Relationship Specialty Start Date End Date Grey Tomas MD PCP - General Family Practice 07/27/22 [place] [address] [facility] [address] [place] [address] Rheumatology 02/21/17 Lashay Downs, GAY Registered Nurse Pain Management 06/17/17 Duke Do, RN Registered Nurse 09/09/17 Ngozi Petty MD Radiation Oncologist Radiation Oncology 02/05/19 Jose Roberto Marx MD Referring Physician Otolaryngology 02/05/19 documented as of this encounter
--- OUTSIDE RECORDS SUMMARY | 2024-06-14 16:47 | XMS_ITS | Encounter Summary ---
Author Organization [facility] Healthcare Address [address] [place] [address] Care Team Providers Care Transit Mix Operator Name Role Phone Criss Blanco MD Unavailable Lashay Downs RN Unavailable Unavailab Duke Goodwin RN Unavailable UnavailNgozi Husain MD Unavailable [phone] Jose Roberto Marx MD Unavailable [phone] Grey Tomas MD Primary Care Provider [phone] Reason for Referral * MRI/CAT/PET Scan (Routine) - Closed Specialty Diagnoses / Procedures Referred By Alcira forrest Referred To Contact Radiology Diagnoses SDH (subdural hematoma) (HCC) Procedures CT Head WO Contrast Baldo Bailey PA [address] [facility] [address] [place] [address] Phone: tel: fax: [place] [address] [place] [address] Referral ID Status Reason Start Date Expiration Date Visits Re quested Visits Authorized [id number] Closed 08/08/2022 09/07/2023 1 1 Reason for Visit * MRI/CAT/PET Scan (Routine) - Closed Specialty Diagnoses / Procedures Referred By Contac adriane Referred To Contact Radiology Diagnoses SDH (subdural hematoma) (HCC) Procedures CT Head WO Contrast Baldo Bailey PA [address] [place] [address] Phone: tel: fax: [facility] [place]za [phone] Referral ID Status Reason Start Date Expiration Date Visits Re quested Visits Authorized [id number] Closed 08/08/2022 09/07/2023 1 1 Encounter Details Date Type Department Care Team (Latest Contact Info) Description 10/10/2022 10:44 AM CDT - 10/10/2022 11:59 PM CDT Hospital Encounter [facility] [id number] [id number] SDH (subdural hematoma) (HCC) Discharge Disposition: Discharge [...] on file Legal Sex Male 12:56 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 Gender Identity Not on file Sexual Orientation Not on file 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 on file Not on natalie e documented as of this encounter Medications at Time of Discharge finasteride (PROSCAR) 5 mg tabletIndications :benign prostatic hyperplasia with lower urinary tract sx Take 1 tablet (5 mg total) by mouth manager environmental services before breakfast multivitamin capsuleIndication s:Vitamin Deficiency Prevention [...] needed for pain 31 tablet 07/03/2022 3 azelastine (ASTELIN) 137 mcg (0.1 %) nasal spray 2 sprays 2 (two) times a day 09/17/2022 3 budesonide-glycop yr-formoterol (Breztri Aerosphere) 160-9-4.8 mcg/actuation HFA aerosol inhaler Inhale 2 puffs every 12 hours 08/29/2022 3 cetirizine (ZyrTEC) 10 mg tablet Take 10 mg by mouth manager environmental services before breakfast 3 famotidine (PEPCID) 40 mg tablet Take 1 tablet (40 mg total) by mouth nightly 03/28/2020 3 fluticasone propionate (FLONASE) 50 mcg/actuation nasal spray Administer 1 spray into each nostril manager environmental services before breakfast 04/12/2022 3 folic acid (FOLVITE) 1 mg tablet Take 1 tablet (1 mg total) by mouth manager environmental services before breakfast 3 levETIRAcetam (KEPPRA) 500 mg [...] 2 capsules (40 mg total) by mouth manager environmental services before breakfast 3 oxyCODONE (ROXICODONE) 5 mg immediate release tablet Take 1 tablet (5 mg total) by mouth every 4 (four) hours as needed for pain 7 tablet 05/07/2022 3 predniSONE (DELTASONE) 20 mg tabletIndications :Right [...] on stairs Contact your local community or [facility] for information on exercise, fall prevention programs, or options for improving home safety. documented as of this encounter Procedures Procedure Name Priority Date/Time Associated Diagnosis Comments CT HEAD WO CONTRAST Schedule Routine, Read Routine (OP Routine) 10/10/2022 10:48 AM CDT SDH (subdural hematoma) (HCC) documented in this encounter Results * CT Head WO Contrast (10/10/2022 10:48 AM CDT) Anatomical Region Laterality Modality Head and Neck N/A Computed Tomogra phy 10/10/2022 12:5 8 PM CDT Impressions 10/10/2022 1:24 PM CDT No significant change in the mixed attenuating left cerebral convexity subdural collection compared to the prior exam of 08/08/2022. ??No new acute intracranial hemorrhage. Dictated by: Jhonny Flores MD The radiology attending physician has personally reviewed this study, and had reviewed and/or edited this written report and agrees with it. Electronically signed by: Leana Becerra M.D. Narrative 10/10/2022 1:24 PM CDT EXAMINATION: Computed tomography (CT) of the head without contrast HISTORY: Subdural hemorrhage, follow-up TECHNIQUE: CT of the head was performed without contrast according to standard protocol. COMPARISON: 08/08/2022 FINDINGS: The mixed attenuating left frontoparietal convexity subdural collection is not substantially changed from the prior exam, measuring up to 11 mm in thickness over the left frontal convexity, with similar minimal mass effect on the subjacent brain parenchyma. There is no new acute intracranial hemorrhage. No midline shift is present. The ventricles are normal in size and position without evidence of hydrocephalus. The chacko-white matter differentiation is normal. ?? No fractures are identified. Other than mild paranasal sinus disease, the visualized portions of the orbits, paranasal sinuses, and mastoids appear normal. Procedure Note Leana Becerra MD - 10/10/2022 EXAMINATION: Computed tomography (CT) of the head without contrast HISTORY: Subdural hemorrhage, follow-up TECHNIQUE: CT of the head was performed without contrast according to standard protocol. COMPARISON: 08/08/2022 FINDINGS: The mixed attenuating left frontoparietal convexity subdural collection is not substantially changed from the prior exam, measuring up to 11 mm in thickness over the left frontal convexity, with similar minimal mass effect on the subjacent brain parenchyma. There is no new acute intracranial hemorrhage. No midline shift is present. The ventricles are normal in size and position without evidence of hydrocephalus. The chacko-white matter differentiation is normal. No fractures are identified. Other than mild paranasal sinus disease, the visualized portions of the orbits, paranasal sinuses, and mastoids appear normal. IMPRESSION: No significant change in the mixed attenuating left cerebral convexity subdural collection compared to the prior exam of 08/08/2022. No new acute intracranial hemorrhage. Dictated by: Jhonny Flores MD The radiology attending physician has personally reviewed this study, and had reviewed and/or edited this written report and agrees with it. Electronically signed by: Leana Becerra M.D. us Baldo Floyd [facility] CT PROCEDURES Final R esult documented in this encounter Visit Diagnoses Diagnosis SDH (subdural hematoma) (HCC) Subdural hemorrhage documented in this encounter Care Teams Transit Mix Operator Relationship Specialty Start Date End Date Grey Tomas MD PCP - General Family Practice 07/27/22 [place] [address] [address] Rheumatology 02/21/17 Lashay Downs, GAY Registered Nurse Pain Management 06/17/17 Duke Do, GAY Registered Nurse 09/09/17 Ngozi Petty MD Radiation Oncologist Radiation Oncology 02/05/19 Jose Roberto Marx MD Referring Physician Otolaryngology 02/05/19 documented as of this encounter
--- OUTSIDE RECORDS SUMMARY | 2024-06-14 16:47 | XMS_ITS | Encounter Summary ---
Author Organization [facility] Address [address] [place] [address] Phone Care Team Providers Care Physician Practice Market Manager Name Role Phone Criss Blanco MD Unavailable Lashay Downs RN Unavailable Unavailab Duke Goodwin RN Unavailable UnavailNgozi Husain MD Unavailable [phone] Jose Roberto Marx MD Unavailable [phone] Grey Tomas MD Primary Care Provider [phone] Reason for Referral * Diagnostic Imaging (Routine) - Closed Specialty Diagnoses / Procedures Referred By Contac t Referred To Contact Diagnoses Lumbar spondylosis Procedures XR Spine Lumbar Ap Lat Flex Ext min 4 Views Baldo Bailey PA [address] [place] [address] Phone: tel: fax: [address] [phone] Referral ID Status Reason Start Date Expiration Date Visits Re quested Visits Authorized [id number] Closed 01/10/2023 02/09/2024 1 1 Encounter Details Date Type Department Care Team (Late st Contact Info) Description 01/10/2023 Orders Only [facility] Neurosurgery [facility] Medical Office Building [address] [place] [address] Baldo Bailey PA [address] [place] [address] Lumbar spondylosis (Primary Dx) Social History Tobacco Use Types [...] on file Legal Sex Male 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 Electronically signed by: Michael Darling MD us Baldo Floyd [facility] XR PROCEDURES Final R esult documented in this encounter Visit Diagnoses Diagnosis Lumbar spondylosis- Primary Lumbosacral spondylosis without myelopathy Lumbar spondylosis Lumbosacral spondylosis without myelopathy documented in this encounter Care Teams Physician Practice Market Manager Relationship Specialty Start Date End Date Grey Tomas MD PCP - General Family Practice 07/27/22 [place] [address] [facility] [address] [place] [address] Rheumatology 02/21/17 Lashay Downs, RN Registered Nurse Pain Management 06/17/17 Duke Do, RN Registered Nurse 09/09/17 Ngozi Petty MD Radiation Oncologist Radiation Oncology 02/05/19 Jose Roberto Marx MD Referring Physician Otolaryngology 02/05/19 documented as of this encounter
--- OUTSIDE RECORDS SUMMARY | 2024-06-14 16:47 | XMS_ITS | Encounter Summary ---
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] Procedures NM LARGSC EXC STEFANIA&/STRPG CORDS/EPIGL MCRSCP/TLSCP MICROLARYNGOSCOPY WITH BIOPSY/EXCISION LESION LASER KTP Nakita Herrera MD [address] [place] [address] Phone: tel: fax: Referral ID Status Reason Start Date Expiration Date Visits Re quested Visits Authorized [id number] 05/01/2022 1 1 Encounter Details Date Type Department Care Team (Late st Contact Info) Description 05/07/2022 8:16 AM ENTRY LEVEL LAB TECHNICIAN Anesthesia Event [facility] Operating Room [address] [facility] [place] [address] Matthew Clayton MD [address] [place], [place] [id number] Zelda Johnson NP [address] [place] [address] Anesthesia Record Procedure Summary Procedure Name Responsible Anesthesiologist Anesthesia Start Time Anesthesia Stop Time MICROLARYNGOSCOPY WITH BIOPSY/EXCISION LESION (Throat) Matthew Clayton MD 05/07/22 0816 05/07/22 0944 Events Date Time Event Comment 05/07/2022 0722 In Preop 0807 AN Equip Check 0814 0816 An Start 0821 In Room 0823 An Start Data 0825 An Induction The patient was reevaluated immediately before moderate or deep sedation use and before anesthesia induction. 0827 An Intubation 0829 Anesthesia Ready 0837 Proc Start 0921 Quick Note Surgeon instill 4 cc 4% LTA to laryngeal. 0923 Proc Fin 0931 An Extubation 0935 an stop data 0936 Out of Room 0944 Handoff to RN I completed my handoff [...] Patient disposition at the time of handoff: PACU 0944 An Stop Meds Name Total fentaNYL PF 100 mcg Lidocaine IV 1% PF 50 mg propofol 250 mg rocuronium 30 mg ondansetron PF 4 mg dexamethasone 4 mg/ml 8 mg famotidine (PEPCID) injection 20 mg 0 mg scopolamine patch 72 hour 1 patch 0 patc h sodium chloride 0.9% flush 0.5-20 mL 0 m L sodium chloride 0.9% irrigation 0 mL sugammadex 200 mg Lactated Ringer's (LR) infusion 1,600 mL * Agents Name O2 N2O Air Sevoflurane Inspired Sevoflurane * Blood No blood administrations on file. Lines, Drains, and Airways Type Details Placement Removal Peripheral IV Placement Date: 10/13/20; Placement Time: 1143; Catheter Size: 20 G; Orientation: Posterior, Right; Location: Hand; Site Prep: Chlorhexidine; Technique: Anatomical landmarks; Insertion Attempts: 1; Patient Tolerance: Tolerated well; Removal Date: 05/07/22; Removal Time: 1102 10/13/20 1143 by Denise Soares RN 05/07/22 1102 by Margareth Flores, GAY Peripheral IV Placement Date: 05/07/22; Placement Time: 743; Catheter Size: 20 G; Orientation: Right; Location: Arm; Site Prep: Chlorhexidine; Insertion Attempts: 1; Patient Tolerance: Tolerated well; Removal Date: 05/07/22; Removal Time: 1102 05/07/22 0744 by Rosalba Momin RN 05/07/22 1102 by Margareth Flores RN RETIRED Surgical Site 05/07/22; 0851; Mid-line; Throat; 07/01/22; Removal date unknown/not present on admission 05/07/22 0851 by Marlene Wells RN 07/01/22 0000 by Denise Manriquez RN ETT Placement Date: 05/07/22; Placement Time: 08 (created via procedure documentation); Mask Ventilation: 1; Technique: Video laryngoscopy; Type: Laser tube; Single Lumen Tube Size: 5 mm; Cuffed: Yes; Laryngoscope: Jorge; Blade Size: 4; Location: Oral; Insertion Attempts: 1; Placement Verification: Auscultation; Removal Date: 05/07/22; Removal Time: 93005/07/22 0852 by Leticia Gresham CRNA 05/07/22 0931 by Leticia Gresham CRNA documented in this encounter Social History [...] on file Legal Sex Male 12:56 AM ENTRY LEVEL LAB TECHNICIAN Gender Identity Not on file Sexual Orientation Not on file 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 Not on file Not on natalie e documented as of this encounter OR Notes * Anesthesia Postprocedure Evaluation - Matthew Clayton MD - 05/07/2022 10:01 AM CST Patient: Samuel Sanchez Procedure Summary Date: 05/07/22 Room / Location: [facility] OPERATING ROOM [facility]PER[facility] Anesthesia Start: 815 Anesthesia Stop: 943 Procedures: MICROLARYNGOSCOPY WITH BIOPSY/EXCISION LESION (Throat) LASER KTP Diagnosis: Dysplasia of larynx (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]) Surgeons: Nakita Herrera MD Responsible Provider: Matthew Clayton MD Anesthesia Type: general ASA Status: 3 Anesthesia Type: general Last vitals BP 134/79 Pulse 77 Temp 36 ??C (96.8 ??F) Resp 19 SpO2 99% Anesthesia Post Evaluation Patient location during evaluation: PACU Patient participation: complete - patient participated Level of consciousness: fully awake Pain score: 2 Pain management: adequate Airway patency: adequate Evidence of recall: no Anesthetic complications: no Cardiovascular status: hemodynamically stable Respiratory status: acceptable Hydration status: euvolemic Pt is: normothermic Nausea/Vomiting status: none No notable events documented. Y LEVEL LAB TECHNICIAN * Anesthesia Procedure Notes - Leticia Gresham CRNA - 05/07/2022 8:51 AM ENTRY LEVEL LAB TECHNICIAN Associated Order(s): Airway Airway Patient location: OR Urgency: elective Indications for airway management: anesthesia Difficult airway: no Emergent airway documentation: Risks and benefits discussed: yes Consent obtained: yes Consent given by: patient Airway prep: Preoxygenated: yes Patient position: sniffing MILS maintained throughout: yes Mask difficulty assessment: 1 - vent by mask Spontaneous ventilation during airway: present Sedation level during airway: GA Final airway details: Final airway type: endotracheal airway Tube type: laser tube ETT size: 5.0 mm Cuffed: yes Technique used for successful ETT placement: video laryngoscopy Insertion site: oral Blade type: Jorge Video blade type: Mcdaniels Blade size: 4 Cormack-Lehane (video): grade I - full view of glottis Cuff volume: 6 mL Cuff inflated with: saline ETT to gums: 22 cm Placement verified by: auscultation Airway secured with: silk tape Number of attempts: 1 Ventilation between attempts: none Y LEVEL LAB TECHNICIAN * Anesthesia Preprocedure Evaluation - Matthew Clayton MD - 05/02/2022 9:30 AM CST Images from the original note were not included. [facility] for Preoperative Assessment and Planning Preoperative Evaluation Record Evaluation type/location: TPAP from [facility] Planned procedure site: [facility] OR Date: 05/02/22 NOTE: This note represents a preoperative evaluation initiated via telephone interview. NO PHYSICALEXAM was performed at the time of initial assessment. A physical exam may be added to this note anddocumented below. Anesthesia Evaluation Samuel Sanchez is a 76 y.o. 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 male who is being evaluated prior to undergoing MICROLARYNGOSCOPY WITH BIOPSY/EXCISION LESION (Throat) LASER KTP under general anesthesia. PMH includes GERD. Past Medical History Information obtained from: patient and chart. Neurological Pertinent negatives: neuromuscular disease; CVA/stroke and TIA Cardiovascular Pertinent negatives: hypertension ; CAD ; IN ; CABG ; valvular heart disease; atrial [...] risk. Preoperative assessment status: complete. Additional comments: Samuel Sanchez is a 76 y.o. male who [...] via telephone and in writing sent via [employer] mail. Patient verbalized understanding of preoperative plan. TPAP Complete Preoperative evaluation performed by Zelda Johnson NP on 05/02/22 at 9:34 AM. Patient Active Problem List Diagnosis ??? 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 Headache ??? FPC use of drug ??? DDD (degenerative disc [...] OTHER MEDICAL hemorroids; Comments: Had done at [facility] in [place] ??? HX OTHER MEDICAL bladder infection ??? [...] LITHOTRIPSY 5 or 6 times s - [id number] ??? ORCHIECTOMY Right 1970's ??? OTHER SURGICAL HISTORY 04/18/2020 Suspension microlaryngoscopy with KTP laser treatment-multiple ??? PROSTATE SURGERY Pinched Prostate: surgically repaired 1969's ??? ROTATOR CUFF REPAIR Right and removal of bone spurs 1969's ??? SHOULDER SURGERY Right bone spurs ??? VASECTOMY 1969's Allergies Allergen Reactions ??? Perfume Swelling, Cough [...] last 720 hours. Marcelle index score: 100 DOS Physical Exam Medical history, medications, and allergies reviewed. Attestation: This PAT evaluation Airway Exam: Mallampati: II Cervical ROM: FROM Cardiovascular Exam: Rate: regular Rhythm: regular Pulmonary Exam: Coarse breath sounds Anesthesia Plan ASA 3 My patient is approved for the Anesthesia Controlled Medication protocol when under care of a EPIC ANALYST Planned anesthesia: General Informed Consent: Anesthesia plan and risks discussed with patient. Consent and Attending signature: I and/or my designee have discussed the anesthesia plan, benefits, possible alternatives, parental presence at time of induction (if indicated), and clinically relevant risks that may include dental injury, unintentional awareness, and/or other complications. The patient and/or parent/legal guardian understand, and agree to proceed. All questions answered. Y LEVEL LAB TECHNICIAN Y LEVEL LAB TECHNICIAN documented in this encounter Plan of Treatment [...] Procedure Name Priority Date/Time Associated Diagnosis Comments NM AN PROCEDURE PLACEHOLDER Routine 05/07/2022 8:51 AM ENTRY LEVEL LAB TECHNICIAN NM AN ELECTIVE ENDOTRACHEAL AIRWAY Routine 05/07/2022 8:51 AM ENTRY LEVEL LAB TECHNICIAN documented in this encounter Results * NM AN ELECTIVE ENDOTRACHEAL AIRWAY, NM AN PROCEDURE PLACEHOLDER (05/07/2022 8:51 AM ENTRY LEVEL LAB TECHNICIAN) Narrative Leticia Gresham CRNA - 05/07/2022 8:51 AM ENTRY LEVEL LAB TECHNICIAN Leticia Gresham CRNA ? 05/07/2022 ??8:52 AM Airway Patient location: OR Urgency: elective Indications for airway management: anesthesia Difficult airway: no Emergent airway documentation: Risks and benefits discussed: yes Consent obtained: yes Consent given by: patient Airway prep: Preoxygenated: yes Patient position: sniffing MILS maintained throughout: yes Mask difficulty assessment: 1 - vent by mask Spontaneous ventilation during airway: present Sedation level during airway: GA Final airway details: Final airway type: endotracheal airway Tube type: laser tube ETT size: 5.0 mm Cuffed: yes Technique used for successful ETT placement: video laryngoscopy Insertion site: oral Blade type: Jorge Video blade type: Mcdaniels Blade size: 4 Cormack-Lehane (video): grade I - full view of glottis Cuff volume: 6 mL Cuff inflated with: saline ETT to gums: 22 cm Placement verified by: auscultation Airway secured with: silk tape Number of attempts: 1 Ventilation between attempts: none Matthew Clayton MD ANESTHESIA ORDERABLES Fi nal Result documented in this encounter Visit Diagnoses Not on filedocumented in this encounter Administered Medications Inactive Administered Medications - up to 3 most recent administrations Medication Order MAR Action Action Date Dose Rate Site dexAMETHasone (DECADRON) 4 mg/mL injection intravenous, Administer over 2 Minutes, As needed, Starting on Sat05/07/22 at 0825, Anesthesia Intra-op Given 05/07/2022 8:25 AM ENTRY LEVEL LAB TECHNICIAN 8 mg fentaNYL (SUBLIMAZE) preservative free injection intravenous, As needed, Starting on Sat05/07/22 at 0825, Anesthesia Intra-op Given 05/07/2022 8:25 AM ENTRY LEVEL LAB TECHNICIAN 100 mcg Lactated Ringer's (LR) infusion 30 mL/hr, intravenous, Continuous, Starting on Sat05/07/22 at 0800, For 4 hours, Pre-Op, Use a 500 ml bag for End Stage Renal Disease Patients. Discontinue if fluid still running once patient arrives to floor. New Bag 05/07/2022 9:02 AM ENTRY LEVEL LAB TECHNICIAN Rate/Dose Verify 05/07/2022 8:16 AM ENTRY LEVEL LAB TECHNICIAN 30 mL/h r New Bag 05/07/2022 7:45 AM ENTRY LEVEL LAB TECHNICIAN 30 mL/hr 30 mL/hr lidocaine PF (XYLOCAINE) 10 mg/mL (1 %) preservative free injection intravenous, As needed, Starting on Sat05/07/22 at 0825, Anesthesia Intra-op Given 05/07/2022 8:25 AM ENTRY LEVEL LAB TECHNICIAN 50 mg ondansetron (ZOFRAN) injection intravenous, Administer over 2 Minutes, As needed, Starting on Sat05/07/22 at 0923, Anesthesia Intra-op Given 05/07/2022 9:23 AM ENTRY LEVEL LAB TECHNICIAN 4 mg propofoL (DIPRIVAN) 10 mg/mL IV intravenous, As needed, Starting on Sat05/07/22 at 0825, Anesthesia Intra-op Given 05/07/2022 8:51 AM ENTRY LEVEL LAB TECHNICIAN 50 mg Given 05/07/2022 8:42 AM ENTRY LEVEL LAB TECHNICIAN 50 mg Given 05/07/2022 8:25 AM ENTRY LEVEL LAB TECHNICIAN 150 mg rocuronium (ZEMURON) injection intravenous, As needed, Starting on Sat05/07/22 at 0825, Anesthesia Intra-op Given 05/07/2022 8:25 AM ENTRY LEVEL LAB TECHNICIAN 30 mg sugammadex (BRIDION) 100 mg/mL intravenous solution intravenous, As needed, Starting on Sat05/07/22 at 0923, Anesthesia Intra-op Given 05/07/2022 9:23 AM ENTRY LEVEL LAB TECHNICIAN 200 mg documented in this encounter Care Teams Twister Tender Paper Relationship Specialty [place] [address] [address] Rheumatology 02/21/17 Lashay Downs, GAY Registered Nurse Pain Management 06/17/17 Duke Do, GAY Registered Nurse 09/09/17 Ngozi Petty MD Radiation Oncologist Radiation Oncology 02/05/19 Jose Roberto Marx MD Referring Physician Otolaryngology 02/05/19 documented as of this encounter
--- OUTSIDE RECORDS SUMMARY | 2024-06-14 16:47 | XMS_ITS | Encounter Summary ---
Author Organization [facility] Address [address] [place] [address] Phone Care Team Providers Care Gardener Florist Name Role Phone Criss Blanco MD Unavailable Lashay Downs RN Unavailable Unavailab Duke Goodwin RN Unavailable UnavailNgozi Husain MD Unavailable [phone] Jose Roberto Marx MD Unavailable [phone] Grey Tomas MD Primary Care Provider [phone] Reason for Referral * MRI/CAT/PET Scan (Routine) - Closed Specialty Diagnoses / Procedures Referred By Contac t Referred To Contact Radiology Diagnoses SDH (subdural hematoma) (HCC) Procedures CT Head WO Contrast Baldo Bailey PA [address] [place] [address] Phone: tel: fax: [place] [address] [address] [place] [address] Referral ID Status Reason Start Date Expiration Date Visits Re quested Visits Authorized [id number] Closed 08/08/2022 09/07/2023 1 1 ENTARY EDUCATION TEACHER Encounter Details Date Type Department Care Team (Late st Contact Info) Description 08/08/2022 3:00 PM ELEMENTARY EDUCATION TEACHER Office Visit [facility] Neurosurgery [address] [facility] Medical Office Building [address] [place] [address] Baldo Bailey PA [address] [place] [address] SDH (subdural hematoma) (Primary Dx); Low back pain, non-specific; Lumbar spondylosis Social History Tobacco Use Types Packs/Day Years Used Date Smoking Tobacco: Former Cigarettes 1.5 37 1 959 - 1995 Smokeless Tobacco: Never Tobacco Cessation:Counseling Given: No Alcohol Use Standard Drinks/Week Comments Yes 3 [...] on file Legal Sex Male 12:56 AM ELEMENTARY EDUCATION TEACHER Gender Identity Not on file Sexual Orientation Not on file 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 on file Not on natalie e documented as of this encounter Last Filed Vital Signs Vital Sign Reading Time Taken Comments Blood Pressure 115/83 08/08/2022 3:12 PM ELEMENTARY EDUCATION TEACHER Pulse 84 08/08/2022 3:12 PM ELEMENTARY EDUCATION TEACHER Temperature - - Respiratory Rate - - Oxygen Saturation - - Inhaled Oxygen Concentration - - Weight 95.3 kg (210 lb) 08/08/2022 3:12 PM ELEMENTARY EDUCATION TEACHER Height 185.4 cm (6' 1 ) 08/08/2022 3:12 PM ELEMENTARY EDUCATION TEACHER Body Mass Index 27.71 08/08/2022 3:12 PM ELEMENTARY EDUCATION TEACHER documented in this encounter Progress Notes * Baldo Bailey PA - 08/08/2022 3:00 PM CST RETURN VISIT Subjective HISTORY OF PRESENT ILLNESS 77-year-old male returns to clinic for hospital follow-up regarding a mechanical fall contributing to an onset of headache and blurry vision. The date of the fall was approximately 6 weeks prior to today's date as the patient was transferred outside hospital [facility]. 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 Proximally 2 mm shift was noted on his CT scan and was ultimately treated conservatively with stable repeat CT head scans. The patient is not on anticoagulants. He admits that his headache complaints have improved time. If there is any headache this is described as dull. He denies any loss of consciousness, episodes of confusion, numbness or tingling, nausea vomiting. The blurry vision complaints have quickly resolved. The patient has a past medical history of laryngeal cancer, rheumatoid arthritis on methotrexate, gastric reflux and BPH. As noted above, he had a [place] that [place] [facility]. He does have a chronic history of some lower back pain complaints related to arthritis and degeneration. He has been evaluated by pain management providers andphysical therapy in the past without significant relief in symptoms. VITAL SIGNS BP 115/83 Pulse 84 Ht 185.4 cm (6' 1 ) Wt 95.3 kg (210 lb) BMI 27.71 kg/m?? ALLERGIES He is allergic to perfume, mold, cat dander, hydrocodone, and vicodin [hydrocodone-acetaminophen]. MEDICATIONS Current Outpatient Medications: acetaminophen (TYLENOL) 325 mg tablet, Take 2 tablets (650 mg total) by mouth every 6 (six) hours as needed for pain (Patient not taking: Reported on 07/13/2022), Disp: 31 tablet, Rfl: 0 cetirizine (ZyrTEC) 10 mg tablet, Take 10 mg by mouth tubing oiler before breakfast, Disp: , Rfl: famotidine (PEPCID) 40 mg tablet, Take 40 mg by mouth nightly , Disp: , Rfl: finasteride (PROSCAR) 5 mg tablet, Take 5 mg by mouth tubing oiler before breakfast, Disp: , Rfl: fluticasone propionate (FLONASE) 50 mcg/actuation nasal spray, Administer 1 spray into each nostrilearly morning before breakfast (Patient not taking: Reported on 07/13/2022), Disp: , Rfl: folic acid (FOLVITE) 1 mg tablet, Take 1 mg by mouth tubing oiler before breakfast (Patient not taking: Reported on 07/13/2022), Disp: , Rfl: levETIRAcetam (KEPPRA) 500 mg tablet, Take 1 tablet (500 mg total) by mouth 2 (two) times a day for11 doses, Disp: 11 tablet, Rfl: 0 methotrexate 2.5 mg tablet, Take 6 tablets by mouth once a week saturday, Disp: , Rfl: montelukast (SINGULAIR) 10 mg tablet, Take 10 mg by mouth nightly, Disp: , Rfl: multivitamin capsule, Take 1 capsule by mouth every morning, Disp: , Rfl: omeprazole (PriLOSEC) 20 mg capsule, Take 40 mg by mouth tubing oiler before breakfast, Disp: , Rfl: oxyCODONE (ROXICODONE) 5 mg immediate release tablet, Take 1 tablet (5 mg total) by mouth every 4 (four) hours as needed for pain (Patient not taking: Reported on 07/13/2022), Disp: 7 tablet, Rfl: 0 rOPINIRole (REQUIP) 1 mg tablet, Take 1 mg by mouth nightly, Disp: , Rfl: senna-docusate (PERICOLACE) 8.6-50 mg, Take 1 tablet by mouth 2 (two) times a day (Patient not taking: Reported on 07/13/2022), Disp: 20 tablet, Rfl: 0 UNABLE TO FIND, Take 1 each by mouth nightly as needed THC gummie-25mg, Disp: , Rfl: vit A/vit C/vit E/zinc/copper (PRESERVISION AREDS ORAL), Take 1 capsule by mouth 2 (two) times a day (Patient not taking: Reported on 07/13/2022), Disp: , Rfl: Objective PHYSICAL EXAM He is alert and oriented appears to be comfortable. He is neurologically intact. Cranial nerves 2-12 grossly intact. There is no drift or dysmetria. Pupils are equal and reactive to light. Facial sensation and motor is intact. Tongue protrudes midline. There is no facial droop. There is no drift ordysmetria. He does have some lower lumbar soft tissue musculature tenderness to palpation. Pain is reproduced in extension and lateral rotation. There is no lower extremity weakness. 5/5 strength is noted in both lower extremities. There is no sustained clonus. Hyporeflexia is noted throughout. REVIEW OF IMAGING EXAMINATION: Noncontrast head CT HISTORY: Subdural hematoma [...] are identified. IMPRESSION: Slightly mixed density subdural hem to atoma along the left cerebral convexity which is similar or slightly decreased in thickness compared to prior study. No midline shift. Assessment/Plan Subdural hematoma, slightly decreased thickness compared to previous study Lower back pain, multilevel lumbar spondylosis PLAN Pleasant 77-year-old male returns to clinic for hospital follow-up after a mechanical fall that occurred on 07/01/2022. The patient was evaluated in outside hospital before transferring to [facility] for neurosurgical treatment and follow-up. The patient had a noted mixed density subdural hematoma along the left cerebellar convexity with 2 mm shift seen at an outside hospital. The patient underwent a CTscan at the outside hospital after hitting the back of the head without losing consciousness. He was ultimately treated and released after stable appearing CT scans. He returns today with a stable CTscan noting slight decrease in the overall convexity compared to the previous study. We discussed repeating a CT scan in approximately 2 months and re-evaluate his condition. The patient does have a chronic history of lower back pain complaints and has been evaluated by outside providers including pain management. He does describe ongoing lower back pain that has failed to improve with conservative treatment including therapy and interventional pain management. We discussed when he returns, we can evaluate his lumbar spine with lumbar x-rays. He is welcome to return to clinic sooner if there is any concerns or questions. Baldo Bailey PA-C ENTARY EDUCATION TEACHER documented in this encounter Plan [...] on stairs Contact your local community or [facility] for information on exercise, fall [...] it. Electronically signed by: Leana Becerra M.D. Baldo CUM[facility] IMG CT PROCEDURES Final R esult documented in this encounter Visit Diagnoses Diagnosis SDH (subdural hematoma) (HCC)- Primary Subdural hemorrhage Low back pain, non-specific Lumbar spondylosis Lumbosacral spondylosis without myelopathy SDH (subdural hematoma) (HCC) Subdural hemorrhage documented in this encounter Historical Medications * This list may reflect changes made after this encounter. Mucinex D 60-600 mg per 12 hr tablet TAKE 1 TABLET BY MOUTH TWICE DAILY NEEDED FOR COLD SYMPTOMS 08/02/2022 02/01/2023 added in this encounter Care Teams Gardener Florist Relationship Specialty Start Date End Date Grey Tomas MD PCP - General Family Practice 07/27/22 [place] [address] [facility] [address] [place] [address] Rheumatology 02/21/17 Lashay Downs, RN Registered Nurse Pain Management 06/17/17 Duke Do, RN Registered Nurse 09/09/17 Ngozi Petty MD Radiation Oncologist Radiation Oncology 02/05/19 Jose Roberto Marx MD Referring Physician Otolaryngology 02/05/19 documented as of this encounter
--- OUTSIDE RECORDS SUMMARY | 2024-06-14 16:47 | XMS_ITS | Encounter Summary ---
Author Organization [facility] Address [address] [place] [address] Care Team Providers Care Diamond Sizer And Grader Name Role Phone Criss Blanco MD Unavailable Lashay Downs RN Unavailable Unavailab Duke Goodwin RN Unavailable UnavailNgozi Husain MD Unavailable [phone] Jose Roberto Marx MD Unavailable [phone] Grey Tomas MD Primary Care Provider [phone] Reason for Visit * Reason Onset Date Comments PMC Intake Assessment 10/11/2022 Encounter Details Date Type Department Care Team (Late st Contact Info) Description 10/11/2022 Telephone Pain Management Center at [facility] [address] [address], [address] [place] [id number] Mabel Rincon, RN PMC Intake Assessment Social History Tobacco Use Types Packs/Day Years [...] on file Legal Sex Male 12:56 AM 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 Non-radiating lower back pain intermittent Do you have any numbness, tingling, or weakness? Denies How long have has the pain been going on? Chronic issue for years approx 35 years Was there any accident or injury that started the pain? No What would you rate your pain on the number scale 1-10 with 10 being the most severe/ you can give me a range from your best to your worst? 0-10/10 depending on activity- sitting in a chair/riding juancarlos car causes severe pain Have you had any physical therapy/ when did you complete it/ how many sessions/was it helpful? Lastcompleted PT for 3 months, completed approx Are you doing home exercises? No What medications are you currently taking for the pain and what medications have you tried? naproxen Have you had pain management before? Yes What is the name and location of previous pain management? [facility] , Dr. Shelton, [facility] [address] Reyes Have you had any injections in your the past 12 months? No, no injections have helped Have you had any imaging done? EXAMINATION: XR SPINE LUMBAR AP LAT FLEX EXT MIN 4 VIEWS HISTORY: Back pain COMPARISONS: None FINDINGS: 4 radiographs of the lumbar spine were submitted for interpretation. No acute fracture or subluxation. Mild retrolisthesis of L1 and L2. Mild multilevel degenerative disease and moderate facet osteoarthritis of the lower lumbar spine. No abnormal motion with flexion or extension. Multilevel interspinous osteoarthritis. Calcified atherosclerosis of the abdominal aorta. IMPRESSION: Mild multilevel degenerative disc disease and moderate facet osteoarthritis of the lower lumbar spine. Are you on a prescription blood thinner/ who prescribes? No You have been referred for evaluation NPP mailed documented in this encounter Plan of Treatment [...] on stairs Contact your local community or [facility] for information on exercise, fall prevention programs, or options for improving home safety. documented as of this encounter Visit Diagnoses Not on filedocumented in this encounter Historical Medications * This list may reflect changes made after this encounter. olopatadine-mome tasone (Ryaltris) 665-25 mcg/spray spray,non-aeroso l Administer 2 sprays into affected nostril(s) every 12 hours 08/29/[address] (EC NAPROSYN) 500 mg EC tablet Take 1 tablet (500 mg total) by mouth 2 (two) times a day 10/09/2022 3 budesonide-glyco pyr-formoterol (Breztri Aerosphere) 160-9-4.8 mcg/actuation HFA aerosol inhaler Inhale 2 puffs every 12 hours 08/29/2022 3 azelastine (ASTELIN) 137 mcg (0.1 %) nasal spray 2 sprays 2 (two) times a day 09/17/2022 3 added in this encounter Care Teams Diamond Sizer And Grader Relationship Specialty Start Date End Date Grey Tomas MD PCP - General Family Practice 07/27/22 [place] [address] [facility] [address] [place] [address] Rheumatology 02/21/17 Lashay Downs, RN Registered Nurse Pain Management 06/17/17 Duke Do, RN Registered Nurse 09/09/17 Ngozi Petty MD Radiation Oncologist Radiation Oncology 02/05/19 Jose Roberto Marx MD Referring Physician Otolaryngology 02/05/19 documented as of this encounter
--- OUTSIDE RECORDS SUMMARY | 2024-06-14 16:47 | XMS_ITS | Encounter Summary ---
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) Viraj Romeo, ZOILA [address] [place] [address] Phone: tel: fax: [facility] (All Locations) Referral ID Status Reason Start Date Expiration Date V isits Requested Visits Authorized [id number] Closed Specialty Services Required 03/20/2022 06/02/2023 12 12 Encounter Details Date Type Department Care Team (Late st Contact Info) Description 2022 10:20 AM RN PICU Office Visit [facility] ENT [address] [facility] Medical Office Building [address] [place] [address] Nakita Herrera MD [address] [place] [address] Carcinoma in situ of larynx (Primary Dx); 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 provider found CHIEF COMPLAINT: No chief complaint on file. HISTORY OF PRESENT ILLNESS: Samuel Sanchez is a 76 y.o. male who presents today for surveillance [...] of invasion or dysplasia. Today he reports he had issues following surgery. His voice overall sounds good but fades if he talks too much. No pain. No ear pain. He still has a sensation of post-nasal drip and cough but these are not very bothersome to him. These do not disrupt his life. EXAM: There were no vitals taken for [...] clear Compression/ hyperfunction: Moderate, L>R FVF squeeze Motion: True vocal folds were bilaterally mobile On Stroboscopy: Mucosa: Well-healed, small area of raised epithelium posteriorly, no obvious leukoplakia Mucosal Wave: Reduced on [...] in the same area (2021). He is healing well and doing well following surgery. Will see him again in 6 weeks. MEDICATIONS ORDERED: No orders of the defined types were placed in this encounter. ORDERS PLACED: No orders of the defined types were placed in this encounter. DISPOSITION:6 weeks Dariana Herrera MD Tax Form Preparer [facility] Division of Laryngology Department of Otolaryngology--Head & Neck Surgery PICU documented in this encounter Plan of Treatment [...] on stairs Contact your local community or [facility] for information on exercise, fall prevention programs, or options for improving home safety. 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 [address] [place] [address] Rheumatology 02/21/17 Lashay Downs, GAY Registered Nurse Pain Management 06/17/17 Duke Do, GAY Registered Nurse 09/09/17 Ngozi Petty MD Radiation Oncologist Radiation Oncology 02/05/19 Jose Roberto Marx MD Referring Physician Otolaryngology 02/05/19 documented as of this encounter
--- OUTSIDE RECORDS SUMMARY | 2024-06-14 16:47 | XMS_ITS | Encounter Summary ---
Author Organization [facility] Address [address] [place] [address] Phone Care Team Providers Care Medical Surgery Nurse Name Role Phone Criss Blanco MD Unavailable Lashay Downs RN Unavailable Unavailab Duke Goodwin RN Unavailable UnavailNgozi Husain MD Unavailable [phone] Jose Roberto Marx MD Unavailable [phone] Encounter Details Date Type Department Care Team (Late st Contact Info) Description 07/18/2022 Telephone [facility] Department of Surgery [address] [facility] 12th [place] [address] [place] [address] Mark Potter Social History Tobacco Use Types Packs/Day Years [...] on file Legal Sex Male 12: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 HIS DISCHARGE PAPERWORKSTAT IT NEEDS TO BE COMPLETED IN July. HE WAS PROVIDED THE NEUROSURGERY PHONE# OF [phone].MARK Y YEARS TEACHER documented in this encounter Plan of [...] on filedocumented in this encounter Care Teams Medical Surgery Nurse Relationship Specialty Start [place] [address] [facility] [address] [place] [address] Rheumatology 02/21/17 Lashay Downs, RN Registered Nurse Pain Management 06/17/17 Duke Do, RN Registered Nurse 09/09/17 Ngozi Petty MD Radiation Oncologist Radiation Oncology 02/05/19 Jose Roberto Marx MD Referring Physician Otolaryngology 02/05/19 documented as of this encounter
--- OUTSIDE RECORDS SUMMARY | 2024-06-14 16:47 | XMS_ITS | Encounter Summary ---
Author Organization [facility] Address [address] [place] [address] Phone Care Team Providers Care Fuel Distribution System Operator Name Role Phone Criss Blanco MD Unavailable Lashay Downs RN Unavailable Unavailab Duke Goodwin RN Unavailable UnavailNgozi Husain MD Unavailable [phone] Jose Roberto Marx MD Unavailable [phone] Grey Tomas MD Primary Care Provider [phone] Encounter Details Date Type Department Care Team (Late st Contact Info) Description 08/09/2022 [address]phone [address] [facility] Medical Office Building [address] [place] [address] Carlie Katz Social History Tobacco [...] file Legal Sex Male 12:56 AM MARKETING COMMUNICATIONS 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 CT Head is scheduled for 12:20 pm (11:50 am arrival) at [facility]. Follow Up office visit (including s-rays) is scheduled on 10/10/22 at 1:45 pm with ZOILA Morrison. Patient's home address was verified and he is aware that I am mailing out appt reminder letters andmap for the upcoming appts. ----- Message from ZOILA Murphy sent at 08/08/2022 3:53 PM MARKETING COMMUNICATIONS MANAGER ----- Regarding: CT head and apt in two months Can we please schedule a repeat CT head scan in two months from today's date and apt same day, all here at [facility]? Patient will also need lumbar xrays, scoliosis 6-view, images to evaluate his lumbar spine when he returns. ETING COMMUNICATIONS MANAGER ETING COMMUNICATIONS MANAGER documented in this encounter Plan of Treatment Not on file documented as of this encounter Goals Goal Patient Goal Type Associated Problems Recent Progress Patient-Stated? Author CCM Chronic Pain Care Plan Chronic Care Management No Svetlana Clay, GYA Note: Problem: Chronic Pain Goals: 1. Minimize [...] on stairs Contact your local community or [facility] for information on exercise, fall prevention programs, or options for improving home safety. documented as of this encounter Visit Diagnoses Not on filedocumented in this encounter Care Teams Fuel Distribution System Operator Relationship Specialty Start Date End Date Grey Tomas MD PCP - General Family Practice 07/27/22 [place] [address] [facility] [address] [place] [address] Rheumatology 02/21/17 Lashay Downs, RN Registered Nurse Pain Management 06/17/17 Duke Do, RN Registered Nurse 09/09/17 Ngozi Petty MD Radiation Oncologist Radiation Oncology 02/05/19 Jose Roberto Marx MD Referring Physician Otolaryngology 02/05/19 documented as of this encounter
--- OUTSIDE RECORDS SUMMARY | 2024-06-14 16:47 | XMS_ITS | Encounter Summary ---
Author Organization [facility] Address [address] [place] [address] Phone Care Team Providers Care Lead Oracle Developer Name Role Phone Criss Blanco MD Unavailable Lashay Downs RN Unavailable Unavailab Duke Goodwin RN Unavailable UnavailNgozi Husain MD Unavailable [phone] Jose Roberto Marx MD Unavailable [phone] Grey Tomas MD Primary Care Provider [phone] Encounter Details Date Type Department Care Team (Late st Contact Info) Description 01/17/2023 1:15 PM CDT Office Visit [facility] Neurosurgery [employer] [facility] Medical Office Building [address] [place] [address] Baldo Bailey PA [address] [place] [address] Low back pain, non-specific (Primary Dx); Lumbar spondylosis; SDH (subdural hematoma) (HCC) Social History Tobacco [...] on file Legal Sex Male 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 Gender Identity Not on file Sexual Orientation Not on file 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 RETURN VISIT Subjective HISTORY OF PRESENT ILLNESS 77-year-old male returns to clinic for routine follow-up, presenting with a CT head scan prior to arrival. As you recall, the patient was transferred to [facility] from [facility] in June of this year with findings of chronic subdural hematoma. The patient presented to the outside hospital with complaints of headaches and blurry vision and sustained a mechanical fall. The patient was treated conservatively and has undergone repeat CT head scans prompting his repeat scan prior to today's arrival. He continues to experience ongoing headaches that comes and goes in severity. This is described as dull pressure, bifrontal that is worse in the mornings. The patient has a past history of laryngeal cancer, rheumatoid arthritis, gastric reflux. The patient has been evaluated previously for his chronic lower back pain complaints as he continues to manage with home activities modifications. He denies any episodes of confusion, forgetfulness or change in his memory. He does admit to some bifrontal headaches when waking in the morning. He also admits to vision sensitivity to lights especially difficult for him to drive at night. His headaches have progressively been getting worse and becoming daily. VITAL SIGNS Reviewed ALLERGIES He is allergic to perfume, mold, cat dander, hydrocodone, and vicodin [hydrocodone-acetaminophen]. MEDICATIONS Current Outpatient Medications: acetaminophen (TYLENOL) 325 mg tablet, Take 2 tablets (650 mg total) by mouth every 6 (six) hours as needed for pain (Patient not taking: Reported on 07/13/2022), Disp: 31 tablet, Rfl: 0 azelastine (ASTELIN) 137 mcg (0.1 %) nasal spray, 2 sprays 2 (two) times a day, Disp: , Rfl: bohutqlwkv-fciseqbj-grdfqsgmmy (Breztri Aerosphere) 160-9-4.8 mcg/actuation HFA aerosol inhaler, Inhale 2 puffs every 12 hours, Disp: , Rfl: cetirizine (ZyrTEC) 10 mg tablet, Take 10 mg by mouth regional marketing manager before breakfast (Patient not taking: Reported on 10/04/2022), Disp: , Rfl: famotidine (PEPCID) 40 mg tablet, Take 1 tablet (40 mg total) by mouth nightly, Disp: , Rfl: finasteride (PROSCAR) 5 mg tablet, Take 1 tablet (5 mg total) by mouth regional marketing manager before breakfast, Disp: , Rfl: fluticasone propionate (FLONASE) 50 mcg/actuation nasal spray, Administer 1 spray into each nostrilearly morning before breakfast, Disp: , Rfl: folic acid (FOLVITE) 1 mg tablet, Take 1 tablet (1 mg total) by mouth regional marketing manager before breakfast, Disp: , Rfl: levETIRAcetam (KEPPRA) 500 mg tablet, Take 1 tablet (500 mg total) by mouth 2 (two) times a day for11 doses, Disp: 11 tablet, Rfl: 0 methotrexate 2.5 mg tablet, Take 6 tablets (15 mg total) by mouth once a week saturday, Disp: , Rfl: montelukast (SINGULAIR) 10 mg tablet, Take 10 mg by mouth nightly (Patient not taking: Reported on 08/08/2022), Disp: , Rfl: Mucinex D 60-600 mg per 12 hr tablet, TAKE 1 TABLET BY MOUTH TWICE DAILY NEEDED FOR COLD SYMPTOMS (Patient not taking: Reported on 10/04/2022), Disp: , Rfl: multivitamin capsule, Take 1 capsule by mouth every morning, Disp: , Rfl: naproxen DR (EC NAPROSYN) 500 mg EC tablet, Take 1 tablet (500 mg total) by mouth 2 (two) times a day, Disp: , Rfl: olopatadine-mometasone (Ryaltris) 665-25 mcg/spray spray,non-aerosol, Administer 2 sprays into affected nostril(s) every 12 hours, Disp: , Rfl: omeprazole (PriLOSEC) 20 mg capsule, Take 2 capsules (40 mg total) by mouth regional marketing manager before breakfast, Disp: , Rfl: omeprazole (PriLOSEC) 40 mg capsule, , Disp: , Rfl: oxyCODONE (ROXICODONE) 5 mg immediate release tablet, Take 1 tablet (5 mg total) by mouth every 4 (four) hours as needed for pain (Patient not taking: Reported on 07/13/2022), Disp: 7 tablet, Rfl: 0 predniSONE (DELTASONE) 20 mg tablet, Take 2 tablets (40 mg) by mouth daily, Disp: 10 tablet, Rfl: 0 rOPINIRole (REQUIP) 1 mg tablet, Take 2 tablets (2 mg total) by mouth nightly, Disp: , Rfl: senna-docusate [...] 07/13/2022), Disp: , Rfl: Objective PHYSICAL EXAM The patient is alert and oriented appears to be comfortable today. He remains neurologically intactcranial nerves 2-12 grossly intact. There is no drift or dysmetria. Equal and reactive to light. Isno asymmetry of the face. Tongue protrudes midline. His affect is normal. He is answering questionsappropriately. He is following commands at ease. His ambulatory skills her intact and equal. He does have some pain reproduced with range of motion lumbar spine. Strength appears to be strong in bothlower extremities. Skin is normal turgor color. Cap refills normal limits. Customer Relations Representative strength is intact equal. He does not appear to be hyperreflexic. There is no findings of spasticity. Negative clonus. REVIEW OF IMAGING EXAMINATION: Computed tomography (CT) of the head [...] with a maximal thickness of 0.4 cm. Assessment/Plan Chronic subdural hematoma, left cerebellar convexity Persistent headaches Lower back pain, multilevel lumbar spondylosis PLAN 77-year-old male returns to clinic with a repeat CT head scan prior to arrival. He also underwent repeat x-rays which remains stable multilevel spondylosis of the lumbar spine. Today's focus was regards to his cervical spine findings of chronic subdural hematoma with mixed density of the left frontoparietal convexity. The patient was seen via transfer from outside hospital to [facility] staffed with after a mechanical fall that occurred in June of 2022 found to have chronic subdural hematoma. This was treated conservatively the patient has been stable without persistent complaints or change in symptoms. Since our last discussion, the patient does admit to some persistent headaches, bifrontal when waking in the morning. This at times can worsened throughout the day especially if he is doing strenuous type activity. He is also becoming more sensitive to light contributing to increased headaches making this difficult for him to watch or focus or drive at night. While he does return today neurologically intact, we discussed next options that could be considered. We had previouslydiscussed an MMA type procedure versus surgically removing the chronic blood products. I plan to discuss this further with Dr. Grubbs to collect his thoughts. We will update the plan accordingly after further discussion takes place. Baldo Bailey PA-C Update after further discussion with Dr. Grubbs: 01/18/2023 at 14:00 The patient is recent CT scan of the head is notable for some chronic subdural hematoma. The patient is symptomatic with some persistent and daily headaches as outlined in yesterday's office visit. With appreciation, Dr. Grubbs he is comfortable evaluating the patient in clinic. No further imaging studies are recommended prior to his appointment. He may be a good candidate to consider an MMA type embolization for the chronic subdural hematomas. We will make arrangements for scheduled visit. documented in this encounter Plan of Treatment [...] stairs Contact your local community or [facility] for information on exercise, fall prevention programs, or options for improving home safety. documented as of this encounter Visit Diagnoses Diagnosis Low back pain, non-specific- Primary Lumbar spondylosis Lumbosacral spondylosis without myelopathy SDH (subdural hematoma) (HCC) Subdural hemorrhage documented in this encounter Care Teams Lead Oracle Developer Relationship Specialty Start Date End Date Grey Tomas MD PCP - General Family Practice 07/27/22 [place] [address] [facility] [address] [place] [address] Rheumatology 02/21/17 Lashay Downs, RN Registered Nurse Pain Management 06/17/17 Duke Do, RN Registered Nurse 09/09/17 Ngozi Petty MD Radiation Oncologist Radiation Oncology 02/05/19 Jose Roberto Marx MD Referring Physician Otolaryngology 02/05/19 documented as of this encounter
--- OUTSIDE RECORDS SUMMARY | 2024-06-14 16:47 | XMS_ITS | Encounter Summary ---
Author Organization [facility] Address [address] [place] [address] Care Team Providers Care Surgical Aide Name Role Phone Criss Blanco MD Unavailable Lashay Downs RN Unavailable Unavailab Duke Goodwin RN Unavailable UnavailNgozi Husain MD Unavailable [phone] Jose Roberto Marx MD Unavailable [phone] Grey Tomas MD Primary Care Provider [phone] Encounter Details Date Type Department Care Team (Latest Contact Info) Description 08/13/2022 12:47 PM CDT - 08/13/2022 11:59 PM CDT Hospital Encounter [facility] [address] [place] [address] Discharge Disposition: Discharge to home or self [...] file 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 Gender Identity Not on file Sexual Orientation Not on file 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 Not on file Not on natalie e documented as of this encounter Medications at Time of Discharge finasteride (PROSCAR) 5 mg tabletIndications :benign prostatic hyperplasia with lower urinary tract sx Take 1 tablet (5 mg total) by mouth plastics engineering teacher before breakfast multivitamin capsuleIndication s:Vitamin Deficiency [...] mg tablet Take 10 mg by mouth plastics engineering teacher before breakfast 3 famotidine (PEPCID) 40 mg tablet Take 1 tablet (40 mg total) by mouth nightly 03/28/2020 3 fluticasone propionate (FLONASE) 50 mcg/actuation nasal spray Administer 1 spray into each nostril plastics engineering teacher before breakfast 04/12/2022 3 folic acid (FOLVITE) 1 mg tablet Take 1 tablet (1 mg total) by mouth plastics engineering teacher before breakfast 3 levETIRAcetam (KEPPRA) 500 mg [...] 2 capsules (40 mg total) by mouth plastics engineering teacher before breakfast 3 oxyCODONE (ROXICODONE) 5 mg [...] Priority Date/Time Associated Diagnosis Comments EGFR Routine 08/13/2022 9:48 AM CDT DIFFERENTIAL AUTO Routine 08/13/2022 9:4 8 AM CDT CBC WITH AUTO DIFFERENTIAL Routine 08/13/2022 9:48 AM CDT COMPREHENSIVE METABOLIC PANEL Routine 08/13/2022 9:48 AM CDT documented in this encounter Results * eGFR (08/13/2022 9:48 AM CDT) [facility] eGFR 68 mL/min/1. [address] [facility] Comment: Interpretive Data Reference Interval Normal ?>/= [...] interpretive data was last reviewed 2021. Blood 08/13/2022 9:48 AM CDT 08/13/2022 1:34 PM CDT Alissa Fuentes MD LAB BLOOD ORDERABLES Final Resul t [facility] [address] Department [place] [address] * Differential, auto (08/13/2022 9:48 AM CDT) Neutrophil abs 3.5 1.7 - 6.5 K/cumm [facility] Imm gran abs 0.0 0.0 - 0.1 K/cumm [facility] Lymphocyte abs 0.8 0.8 - 3.3 K/cumm [facility] Monocyte abs 0.3 0.2 - 0.8 K/cumm [facility] Eosinophil abs 0.2 0.0 - 0.5 K/cumm [facility] Basophil abs 0.0 0.0 - 0.1 K/cumm [facility] Neutrophil pct 72.2 % [facility] Comment: Interpretive Data Percent cell count reference ranges are not reported, since discordance with absolute values may lead to misinterpretation of CBC data. Current Interpretive Data was last revised on 2017. Imm gran pct 0.2 % [facility] Comment: Interpretive Data Percent cell count reference ranges are not reported, since discordance with absolute values may lead to misinterpretation of CBC data. Current Interpretive Data was last revised on 2017. Lymphocyte pct 17.0 % [facility] Comment: Interpretive Data Percent cell count reference ranges are not reported, since discordance with absolute values may lead to misinterpretation of CBC data. Current Interpretive Data was last revised on 2017. Monocyte pct 5.8 % [facility] Comment: Interpretive Data Percent cell count reference ranges are not reported, since discordance with absolute values may lead to misinterpretation of CBC data. Current Interpretive Data was last revised on 2017. Eosinophil pct 4.0 % [facility] Comment: Interpretive Data Percent cell count reference ranges are not reported, since discordance with absolute values may lead to misinterpretation of CBC data. Current Interpretive Data was last revised on 2017. Basophil pct 0.8 % [facility] Comment: Interpretive Data Percent cell count reference ranges are not reported, since discordance with absolute values may lead to misinterpretation of CBC data. Current Interpretive Data was last revised on 2017. Blood 08/13/2022 9:48 AM CDT 08/13/2022 1:19 PM CDT us Alissa Fuentes MD LAB BLOOD ORDERABLES Final Resul t [facility] [address] Department [place] [address] * (ABNORMAL) Comprehensive metabolic panel (08/13/2022 9:48 AM CDT) Sodium 144 135 - 145 mmol/L [facility] Potassium, pl 3.9 3.3 - 4.9 mmol/L [facility] Chloride 108 97 - 110 mmol/L [facility] CO2 27 22 - 32 mmol/L [facility] Anion gap 9 2 - 15 mmol/L [facility] BUN 21 8 - 25 mg/dL [facility] Creatinine 1.10 0.80 - 1.30 mg/dL [facility] Glucose 103 70 - 199 mg/dL [facility] Comment: Interpretive Data Fasting glucose [...] interpretive data was last revised 2022. Calcium 9.0 8.5 - 10.3 mg/dL [facility] Bilirubin, total 0.6 0.1 - 1.2 mg/dL [facility] Protein, pl 6.3(L) 6.5 - 8.5 g/dL [facility] Albumin 4.5 3.5 - 5.0 g/dL [facility] Alk phos 78 40 - 130 Units/L [facility] ALT 15 7 - 55 Units/L [facility] AST 17 10 - 50 Units/L [facility] Blood 08/13/2022 9:48 AM CDT 08/13/2022 1:19 PM CDT us Alissa Fuentes MD LAB BLOOD ORDERABLES Final Resul t Performing Organization Address [facility] de Phone Number [facility] [address] [facility] [place] [address] * (ABNORMAL) CBC with auto differential (08/13/2022 9:48 AM CDT) WBC 4.8 3.8 - 9.9 K/cumm [facility] Hgb 14.7 13.0 - 17.5 g/dL [facility] Hct 45.2 38.9 - 50.3 % [facility] Plt 156 150 - 400 K/cumm [facility] MPV 11.6 9.1 - 12.[address] [facility] RBC 4.67 4.30 - 5.80 M/cumm [facility] MCV 96.8(H) 81.3 - 96.[address] [facility] MCH 31.5 27.1 - 33.[address] [facility] MCHC 32.5 32.3 - 35.7 g/dL [facility] RDW CV 13.4 11.1 - 14.9 % [facility] RDW SD 47.2 35.7 - 48.[address] [facility] NRBC abs 0.00 0.00 - 0.01 K/cumm [facility] Blood 08/13/2022 9:48 AM CDT 08/13/2022 1:19 PM CDT us Alissa Fuentes MD LAB BLOOD ORDERABLES Final Resul t Performing Organization Address [facility]/ZIP Co de Phone Number [facility] [address] Department [employer] [place] [address] documented in this encounter Visit Diagnoses Not on filedocumented in this encounter Care Teams Surgical Aide Relationship Specialty Start Date End Date Grey Tomas MD PCP - General Family Practice 07/27/22 [place] [address] [facility] [address] [place] [address] Rheumatology 02/21/17 Lashay Downs, RN Registered Nurse Pain Management 06/17/17 Duke Do, RN Registered Nurse 09/09/17 Ngozi Petty MD Radiation Oncologist Radiation Oncology 02/05/19 Jose Roberto Marx MD Referring Physician Otolaryngology 02/05/19 documented as of this encounter
--- OUTSIDE RECORDS SUMMARY | 2024-06-14 16:47 | XMS_ITS | Encounter Summary ---
Author Organization [facility] Address [address] [place] [address] Phone Care Team Providers Care Informatics Scientist Name Role Phone Criss Blanco MD Unavailable Lashay Downs RN Unavailable Unavailab Duke Goodwin RN Unavailable UnavailNgozi Husain MD Unavailable Jose Roberto Marx MD Unavailable [phone] Encounter Details Date Type Department Care Team (Late st Contact Info) Description 05/01/2022 Orders Only [facility] Otolaryngology [address] [facility] Medical Office Building [address] [place] [address] Nakita Herrera MD [address] [place] [address] Dysplasia of larynx (Primary Dx) [...] on file Legal 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 We discussed two options: watchful waiting or tiffanie aggressive approach of re-resection. He favors re- resection even if that means his voice will be worse, as he is concerned about needing radiation in the future. I did tell him that if we are unable to control this surgically and it is invasive, radiation may be necessary for him. OGRAPHS CURATOR documented in this encounter Plan of Treatment [...] of larynx- Primary documented in this encounter Orders Case Request Count Last Ordered Date First Orde red Date CASE REQUEST OPERATING ROOM 1 05/01/2022 documented in this encounter Care Teams Informatics Scientist Relationship Specialty [place] [address] [facility] [address] [place] [address] Rheumatology 02/21/17 Lashay Downs, RN Registered Nurse Pain Management 06/17/17 Duke Do, RN Registered Nurse 09/09/17 Ngozi Petty MD Radiation Oncologist Radiation Oncology 02/05/19 Jose Roberto Marx MD Referring Physician Otolaryngology 02/05/19 documented as of this encounter
--- OUTSIDE RECORDS SUMMARY | 2024-06-14 16:47 | XMS_ITS | Encounter Summary ---
Author Organization [facility] Address [address] [place] [address] Phone Care Team Providers Care Radio Antenna Installer Name Role Phone Criss Blanco MD Unavailable Lashay Downs RN Unavailable Unavailab Duke Goodwin RN Unavailable UnavailNgozi Husain MD Unavailable [phone] Jose Roberto Marx MD Unavailable [phone] Reason for Referral * MRI/CAT/PET Scan (Routine) - Closed Specialty Diagnoses / Procedures Referred By Alcira forrest Referred To Contact Radiology Diagnoses SDH (subdural hematoma) (HCC) Procedures CT Head WO Contrast Baldo Bailey PA [address] [place] [address] Phone: tel: fax: [place] [address] [place] [address] Referral ID Status Reason Start Date Expiration Date Visits Re quested Visits Authorized [id number] Closed 07/02/2022 08/01/2023 1 1 AP PLACER Encounter Details Date Type Department Care Team (Late st Contact Info) Description 07/02/2022 Orders Only [facility] Neurosurgery [address] [facility] Medical Office Building [address] [place] [address] Baldo Bailey PA [address] [place] [address] SDH (subdural hematoma) (Primary Dx) Social History Tobacco Use Types [...] on file Legal Sex Male 12:56 AM RIPRAP PLACER Gender Identity Not on file Sexual Orientation [...] CT Head WO Contrast (08/08/2022 12:34 PM RIPRAP PLACER) Anatomical Region Laterality Modality Head and Neck N/A Computed Tomogra phy 08/08/2022 1:40 PM RIPRAP PLACER Impressions 08/08/2022 1:40 PM RIPRAP PLACER Slightly mixed density subdural hematoma along the left cerebral convexity which is similar or slightly decreased in thickness compared to prior study. ??No midline shift. Electronically signed by: Waqas Ashraf MD, PHD Narrative 08/08/2022 1:40 PM RIPRAP PLACER EXAMINATION: Noncontrast head CT HISTORY: Subdural hematoma [...] by: Waqas Ashraf MD, PHD us Baldo CUM[facility]INGS IMG CT PROCEDURES Final R esult documented in this encounter Visit Diagnoses Diagnosis SDH (subdural hematoma) (HCC)- Primary Subdural hemorrhage SDH (subdural hematoma) (HCC) Subdural hemorrhage documented in this encounter Care Teams Radio Antenna Installer Relationship Specialty [place] [address] [address] Rheumatology 02/21/17 Lashay Downs, RN Registered Nurse Pain Management 06/17/17 Duke Do, RN Registered Nurse 09/09/17 Ngozi Petty MD Radiation Oncologist Radiation Oncology 02/05/19 Jose Roberto Marx MD Referring Physician Otolaryngology 02/05/19 documented as of this encounter
--- OUTSIDE RECORDS SUMMARY | 2024-06-14 16:47 | XMS_ITS | Encounter Summary ---
Author Organization [facility] Address [address] [place] [address] Phone Care Team Providers Care Assistant Attorney General Name Role Phone Criss Blanco MD Unavailable Lashay Downs RN Unavailable Unavailab Duke Goodwin RN Unavailable UnavailNgozi Husain MD Unavailable [phone] Jose Roberto Marx MD Unavailable [phone] Grey Tomas MD Primary Care Provider [phone] Reason for Referral * MRI/CAT/PET Scan (Routine) - Closed Specialty Diagnoses / Procedures Referred By Conthermila t Referred To Contact Radiology Diagnoses SDH (subdural hematoma) (HCC) Procedures CT Head WO Contrast Baldo Bailey PA [address] [place] [address] Phone: tel: fax: [place] [address] [address] [place] [address] Referral ID Status Reason Start Date Expiration Date Visits Re quested Visits Authorized [id number] Closed 10/10/2022 11/09/2023 1 1 * Diagnostic Imaging (Routine) - Closed Specialty Diagnoses / Procedures Referred By Contac t Referred To Contact Diagnoses Low back pain, non-specific Lumbar spondylosis Procedures XR Spine Lumbar Ap Lat Flex Ext min 4 Views Baldo Bailey PA [address] [place] [address] Phone: tel: fax: [facility] [address] [place] [phone] Referral ID Status Reason Start Date Expiration Date Visits Re quested Visits Authorized [id number] Closed 10/10/2022 11/09/2023 1 1 Encounter Details Date Type Department Care Team (Late st Contact Info) Description 10/10/2022 1:45 PM CDT Office Visit 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 on file Not on natalie e documented as of this encounter Last Filed Vital Signs Vital Sign Reading Time Taken Comments Blood Pressure 113/71 10/10/2022 12:44 PM CDT Pulse 70 10/10/2022 12:44 PM CDT Temperature - - Respiratory Rate - - Oxygen Saturation - - Inhaled Oxygen Concentration - - Weight 100.2 kg (221 lb) 10/10/2022 12:44 PM CDT Height 185.4 cm (6' 1 ) 10/10/2022 12:44 PM CDT Body Mass Index 29.16 10/10/2022 12:44 PM CDT documented in this encounter Progress Notes * Baldo Bailey PA - 10/10/2022 1:45 PM CDT RETURN VISIT Subjective HISTORY OF PRESENT ILLNESS Pleasant 77-year-old male returns to clinic for repeat CT scan prior to arrival. The patient had a mechanical fall in June of 2022 contributing to an onset of headache and blurry vision. He admits that his headaches have been improving. He does have some pressure behind the eyes that has been persistent but denies any blurry vision or vision changes since our last discussion. During the the medical centeren t's workup in June, he was found to chronic appearing subdural hematomas with mixed blood chronic. The patient is currently not on anticoagulants. He denies any loss of consciousness, episodes of confusion, numbness or tingling, nausea vomiting. The blurry vision complaints have quickly resolved. The patient has a past medical history of laryngeal cancer, rheumatoid arthritis on methotrexate, gastric reflux and BPH. As noted above, he had a mechanical [place] that [place] [facility]. He does have a chronic history of some lower back pain complaints related to arthritis and degeneration. He has been evaluated by pain management providers andphysical therapy in the past without significant relief in symptoms. Describes some locates his lower back as achiness in the right lower lumbar region that does not radiate. He denies any leg pain complaints, claudication like symptoms heaviness in his lower extremities. He denies any loss of bowel bladder control. He has been evaluated by ortho spine past regarding these complaints and had received injections with Dr. Reyes in the past. VITAL SIGNS BP 113/71 Pulse 70 Ht 185.4 cm (6' 1 ) Wt 100.2 kg (221 lb) BMI 29.16 kg/m?? ALLERGIES He is allergic to perfume, mold, cat dander, hydrocodone, and vicodin [hydrocodone-acetaminophen]. MEDICATIONS Current Outpatient Medications: acetaminophen (TYLENOL) 325 mg tablet, Take 2 tablets (650 mg total) by mouth every 6 (six) hours as needed for pain (Patient not taking: Reported on 07/13/2022), Disp: 31 tablet, Rfl: 0 cetirizine (ZyrTEC) 10 mg tablet, Take 10 mg by mouth devops solutions architect before breakfast (Patient not taking: Reported on 10/04/2022), Disp: , Rfl: famotidine (PEPCID) 40 mg tablet, Take 1 tablet (40 mg total) by mouth nightly, Disp: , Rfl: finasteride (PROSCAR) 5 mg tablet, Take 1 tablet (5 mg total) by mouth devops solutions architect before breakfast, Disp: , Rfl: fluticasone propionate (FLONASE) 50 mcg/actuation nasal spray, Administer 1 spray into each nostrilearly morning before breakfast, Disp: , Rfl: folic acid (FOLVITE) 1 mg tablet, Take 1 tablet (1 mg total) by mouth devops solutions architect before breakfast, Disp: , Rfl: levETIRAcetam (KEPPRA) [...] 2 capsules (40 mg total) by mouth devops solutions architect before breakfast, Disp: , Rfl: omeprazole (PriLOSEC) [...] oriented appears to be comfortable in the room. He is answering questions appropriately. His affect is normal. Cranial nerves 2-12 grossly intact. There is no drift or dysmetria. His gait is within normal limits he is able to keep his balance well. There is no drift or any upper extremity weakness. His lower extremity strength is also intact 5/5 bilaterally equal. He does have some mild palpable across the right lower lumbar soft tissue musculature. This pain is also reproduced in extension and lateral rotation. Sensation is fully intact lower extremities. Skin is normal turgor and color. Cap refills normal limits. REVIEW OF IMAGING EXAMINATION: XR SPINE LUMBAR AP LAT FLEX [...] facet osteoarthritis of the lower lumbar spine. EXAMINATION: Computed tomography (CT) of the head [...] of 08/08/2022. No new acute intracranial hemorrhage. 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 This is similar to his last CT scan, mildly decreased thickness. He denies any ongoing headache complaints or blurry vision. He is planning to see his extension clerk in the coming weeks to discuss some eye pressure. The patient is conversing appropriately today and is able to focus on home activities, remains independent. Majority of our visit today was discussing his lower back pain. He has been evaluated by ortho spine in the past and has undergone a conservative treatment approach including physical therapy and injections. We did perform x-rays today that is notable for multilevel spondylosis and degenerative disc disease throughout the lumbar spine. The patient is in favor of doing additional conservative treatment and avoiding surgical options. He locates his pain in the right lower lumbar soft tissue musculature that is reproduced when extending or lateral rotating his spine. He also has palpable tenderness along the joints of the spine could be presenting with some facet disease. We discussed a pain ma nagement approach that could include some trigger point injections versus facet blocks. I recommended evaluate and treat with pain management. We will make arrangements for him to return with a repeat CT scan in approximately 3 months. If he remains stable at that time, we could discuss further interval repeat CT head images. Baldo Bailey PA-C documented in this encounter Plan of [...] on stairs Contact your local community or [facility] for information on exercise, fall [...] [facility] IMG CT PROCEDURES Final R esult * XR Spine Lumbar Ap Lat Flex Ext min 4 Views (10/10/2022 1:06 PM CDT) Anatomical Region Laterality Modality L-spine N/A Computed Radiogr aphy 10/10/2022 1:09 PM CDT Impressions 10/10/2022 1:09 PM CDT Mild multilevel degenerative disc disease and moderate facet osteoarthritis of the lower lumbar spine. Electronically signed by: Mata Espitia MD Narrative 10/10/2022 1:09 PM CDT EXAMINATION: XR SPINE LUMBAR AP LAT FLEX EXT MIN 4 VIEWS HISTORY: ??Back pain COMPARISONS: None FINDINGS: 4 radiographs of the lumbar spine were submitted for interpretation. No acute fracture or subluxation. ??Mild retrolisthesis of L1 and L2. Mild multilevel degenerative disease and moderate facet osteoarthritis of the lower lumbar spine. ??No abnormal motion with flexion or extension. ??Multilevel interspinous osteoarthritis. Calcified atherosclerosis of the abdominal aorta. Procedure Note Mata Espitia MD - 10/10/2022 EXAMINATION: XR SPINE LUMBAR AP LAT FLEX [...] facet osteoarthritis of the lower lumbar spine. Electronically signed by: Mata Espitia MD us Baldo [facility] IMG XR PROCEDURES Final R esult documented in this encounter Visit Diagnoses Diagnosis Low back pain, non-specific- Primary Lumbar spondylosis Lumbosacral spondylosis without myelopathy SDH (subdural hematoma) (HCC) Subdural hemorrhage Low back pain, non-specific Lumbar spondylosis Lumbosacral spondylosis without myelopathy SDH (subdural hematoma) (HCC) Subdural hemorrhage documented in this encounter Care Teams Assistant Attorney General Relationship Specialty Start Date End Date Grey Tomas MD PCP - General Family Practice 07/27/22 [place] [address] [facility] [address] [place] [address] Rheumatology 02/21/17 Lashay Downs, RN Registered Nurse Pain Management 06/17/17 Duke Do, RN Registered Nurse 09/09/17 Ngozi Petty MD Radiation Oncologist Radiation Oncology 02/05/19 Jose Roberto Marx MD Referring Physician Otolaryngology 02/05/19 documented as of this encounter
--- OUTSIDE RECORDS SUMMARY | 2024-06-14 16:47 | XMS_ITS | Encounter Summary ---
Author Organization [facility] Address [address] [place] [address] Care Team Providers Care Hand Trucker Name Role Phone Criss Blanco MD Unavailable Lashay Downs RN Unavailable Unavailab Duke Goodwin RN Unavailable UnavailNgozi Husain MD Unavailable [phone] Jose Roberto Marx MD Unavailable [phone] Grey Tomas MD Primary Care Provider [phone] Reason for Referral * Diagnostic Imaging (Routine) - Closed Specialty Diagnoses / Procedures Referred By Contac t Referred To Contact Diagnoses Low back pain, non-specific Lumbar spondylosis Procedures XR Spine Lumbar Ap Lat Flex Ext min 4 Views Baldo Bailey PA [address] [facility] [address] [place] [address] Phone: tel: fax: [place] [address] [place] [address] Referral ID Status Reason Start Date Expiration Date Visits Re quested Visits Authorized [id number] Closed 10/10/2022 11/09/2023 1 1 Reason for Visit * Diagnostic Imaging (Routine) - Closed Specialty Diagnoses / Procedures Referred By Contac t Referred To Contact Diagnoses Low back pain, non-specific Lumbar spondylosis Procedures XR Spine Lumbar Ap Lat Flex Ext min 4 Views Baldo Bailey PA [address] [place] [address] Phone: tel: fax: [facility] [address] [place] [phone] Referral ID Status Reason Start Date Expiration Date Visits Re quested Visits Authorized [id number] Closed 10/10/2022 11/09/2023 1 1 Encounter Details Date Type Department Care Team (Latest Contact Info) Description 10/10/2022 12:54 PM CDT - 10/10/2022 11:59 PM CDT Hospital Encounter [id number] [address] 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 on file Not on natalie e documented as of this encounter Medications at Time of Discharge finasteride (PROSCAR) 5 mg tabletIndications :benign prostatic hyperplasia with lower urinary tract sx Take 1 tablet (5 mg total) by mouth handstitching machine armhole feller before breakfast multivitamin capsuleIndication s:Vitamin Deficiency Prevention [...] mg tablet Take 10 mg by mouth handstitching machine armhole feller before breakfast 3 famotidine (PEPCID) 40 mg tablet Take 1 tablet (40 mg total) by mouth nightly 03/28/2020 3 fluticasone propionate (FLONASE) 50 mcg/actuation nasal spray Administer 1 spray into each nostril handstitching machine armhole feller before breakfast 04/12/2022 3 folic acid (FOLVITE) 1 mg tablet Take 1 tablet (1 mg total) by mouth handstitching machine armhole feller before breakfast 3 levETIRAcetam (KEPPRA) 500 mg tablet Take 1 tablet (500 mg total) by mouth 2 (two) times a day for 11 doses 11 07/03/2022 3 methotrexate 2.5 mg tablet Take [...] 2 capsules (40 mg total) by mouth handstitching machine armhole feller before breakfast 3 oxyCODONE (ROXICODONE) 5 mg [...] the likelihood of falling Lifestyle No Svetlana Caly, GAY Note: Below are four things you [...] EX Schedule Routine, Read Routine (OP Routine) 10/10/2022 1:06 PM CDT Low back pain, non-specific Lumbar spondylosis documented in this encounter Results [...] signed by: Mata Espitia MD us Baldo [place] PA IMG XR PROCEDURES Final R esult documented in this encounter Visit Diagnoses Diagnosis Low back pain, non-specific Lumbar spondylosis Lumbosacral spondylosis without myelopathy documented in this encounter Care Teams Hand Trucker Relationship Specialty Start Date End Date Grey Tomas MD PCP - General Family Practice 07/27/22 [place] [address] [facility] [address] [place] [address] Rheumatology 02/21/17 Lashay Downs, RN Registered Nurse Pain Management 06/17/17 Duke Do, RN Registered Nurse 09/09/17 Ngozi Petty MD Radiation Oncologist Radiation Oncology 02/05/19 Jose Roberto Marx MD Referring Physician Otolaryngology 02/05/19 documented as of this encounter
--- OUTSIDE RECORDS SUMMARY | 2024-06-14 16:48 | XMS_ITS | Encounter Summary ---
Author Organization [facility] Healthcare Address [address] [place] [address] Care Team Providers Care Stopper Setter Name Role Phone Criss Blanco MD Unavailable Lashay Downs RN Unavailable Unavailab Duke Goodwin RN Unavailable UnavailNgozi Husain MD Unavailable [phone] Jose Roberto Marx MD Unavailable [phone] Reason for Visit * Auth/Cert Specialty Diagnoses / Procedures Referred By Alcira t Referred To Contact Diagnoses Lesion of vocal fold 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] Procedures ND LARYNGOSCOPY,DIRCT,OP SCOP,EXC TUMR MICROLARYNGOSCOPY WITH BIOPSY/EXCISION LESION LASER KTP Nakita Herrera MD [address] [place] [address] Phone: tel: fax: Referral ID Status Reason Start Date Expiration Date Visits Re quested Visits Authorized [id number] 04/25/2022 1 1 Encounter Details Date Type Department Care Team (Latest Contact Info) Description 04/30/2022 6:11 AM BEFORE SCHOOL - 04/30/2022 10:47 AM BEFORE SCHOOL Hospital Encounter [facility] Operating Room [address] Zeny Gibson CREGIOVANNA SUSIE GUEVARA [address] Nakita Herrera MD [address] [place] [address] Lesion of vocal fold Discharge Disposition: Discharge to home or self [...] on file Legal Sex Male 12:56 AM BEFORE SCHOOL Gender Identity Not on file Sexual Orientation Not on file 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 on file Not on natalie e documented as of this encounter Last Filed Vital Signs Vital Sign Reading Time Taken Comments Blood Pressure 129/69 04/30/2022 10:35 AM BEFORE SCHOOL Pulse 71 04/30/2022 10:35 AM BEFORE SCHOOL Temperature 36.5 ??C (97.7 ??F) 04/30/2022 10:[address] Respiratory Rate 20 04/30/2022 10:35 AM BEFORE SCHOOL Oxygen Saturation 96% 04/30/2022 10:35 AM BEFORE SCHOOL Inhaled Oxygen Concentration - - Weight 99.3 kg (219 lb) 04/30/2022 6:41 AM BEFORE SCHOOL Height 185.4 cm (6' 1 ) 04/30/2022 6:41 AM BEFORE SCHOOL Body Mass Index 28.89 04/30/2022 6:41 AM BEFORE SCHOOL documented in this encounter Discharge Instructions * Discharge Instructions* Lui Thompson MD - 04/30/2022 9:58 AM BEFORE SCHOOL ENT Post Operative Discharge Instructions Procedure: Direct laryngoscopy with biopsy and KTP laser treatment What to expect: You [...] You have any questions or concerns. Diet: Return to previous diet Staying hydrated may help with the pain [...] would like. Medications: - Pain: You may take Acetaminophen (Tylenol) as needed for pain; you may buy it at any pharmacy or drugstore. You should take Acetaminophen (Tylenol) 650mg every 6 hours for pain. Do not exceed 3g (3000mg) of Tylenol in a 24h period. You may also take 400mg Ibuprofen every 6 hours as needed for pain. Pathology: Final Pathology will take 7-10 days [...] or contact the main office line at [phone]. Follow up: You should follow up in Nakita Eddy MD's clinic as scheduled below. [place] [phone] OTHER FOLLOW UP: 1. PCP - for management of all chronic illnesses No future appointments. Phone numbers Appointment Scheduling / During Regular Business Hours (8am-5pm Saturday through Saturday): Emergent Concerns after hours or Weekends: Call and ask for the ENT resident try on baster. Questions: If you have any concerns or questions, or develop worrisome symptoms such as worsening pain or swelling, bleeding, fever, or vomiting, call your doctor. 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 multivitamin capsuleIndication s:Vitamin Deficiency Prevention Take 1 capsule by mouth every morning vit A/vit C/vit E/zinc/copper (PRESERVISION AREDS ORAL) Take 1 capsule by mouth 2 (two) times a day albuterol HFA (PROVENTIL HFA,VENTOLIN HFA,PROAIR HFA) 90 mcg/actuation inhaler INHALE 1 TO 2 PUFFS EVERY 4 TO 6 HOURS NEEDED FOR DIFFICULTY BREATHING 06/26/2021 2 escitalopram (LEXAPRO) 10 mg tablet Take 10 mg by mouth daily 02/07/2022 2 famotidine (PEPCID) 40 mg tablet Take 1 tablet (40 mg total) by mouth nightly 03/28/2020 3 fluocinonide (LIDEX) 0.05 % external solution 11/17/2020 02 2 fluticasone propionate (FLONASE) 50 mcg/actuation nasal spray Administer 1 spray into each nostril 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 04/12/2022 3 lansoprazole (PREVACID) 30 mg capsule Take 30 mg by mouth 12/19/2021 2 methotrexate 2.5 mg tablet Take 6 tablets (15 mg total) by mouth once a week saturday02/02/2020 3 montelukast (SINGULAIR) 10 mg tablet Take 10 mg by mouth nightly 04/12/2022 3 omeprazole (PriLOSEC) 20 mg capsule Take 2 capsules (40 mg total) by mouth 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 Plan of Care : Based on the above findings, I consider Pasquale Sanchez to be an acceptable risk for : Procedure(s): MICROLARYNGOSCOPY WITH BIOPSY/EXCISION LESION LASER KTP RE SCHOOL Source Note - Nakita Herrera MD - 04/25/2022 9:00 AM BEFORE SCHOOL PATIENT NAME: Pasquale Sanchez : 1945 DOS: 04/25/2022 REFERRING PHYSICIAN: ZOILA Kuo CHIEF COMPLAINT: No chief complaint on file. HISTORY OF PRESENT ILLNESS: Pasquale Sanchez is a 76 y.o. male who presents today for surveillance of his vocal folds. 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 This was treated with surgical resection in 2018. Since that time, he has been doing well. He was last seen in September of 2021. Last surgery in October 2020; high grade dysplasia. Dr. Valdez's operative report (October 2020 and last noteApr2021 reviewed). He reports that his voice sounds different (he used to have more of a base and it is a bit gravelly). He also reports it hurts to talk. He reports that occasionally pills stick. He has persistent cough. He also senses drainage down the back of his throat. He is taking kristie and a nose spray. His requires 24/7 care and though he has home health, he takes care of her often. His back hasbeen hurting him given all the lifting he does in caring for his . OUTCOMES: VCI-11 RSI-21 GFI-7 [id number] REVIEW OF SYSTEMS: A complete past medical history, family history, social history, and 10 system review of systems was completed by the patient on the Patient History Form and reviewed with the patient during the visit. All review of systems not otherwise marked on the form are negative. The Patient History Form canbe found in the electronic medical record as a scanned document. Past Medical History: Past Medical History: Diagnosis [...] OTHER MEDICAL hemorroids; Comments: Had done at [facility] in [place] HX OTHER MEDICAL bladder infection HX OTHER MEDICAL kidney stone Low back pain Malignant neoplasm of 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 Migraine Rheumatoid arthritis ([facility]) Past Surgeries: has a past surgical history that includes Biceps Tenodesis (Left, ); Ear Surgery (Left, ); Orchiectomy (Right, ); Vasectomy (); Rotator cuff repair (Right, ); Lithotripsy ( - [id number]); Laryngoscopy (Right, 01/09/2019); Laryngoscopy (Right, 02/16/2019); Shouldersurgery (Right, ); Prostate surgery (); Colonoscopy (03/14/2020); and Other surgical history (04/18/2020). Allergies: Allergies Allergen Reactions Perfume Swelling, Cough and Shortness of breath Mold Unknown Cat Dander Eye irritation Hydrocodone Itching Vicodin [Hydrocodone-Acetaminophen] Itching Social History: Social History Tobacco Use Smoking status: Former Packs/day: 1.50 Years: 30.00 Pack years: 45.00 Types: Cigarettes Start date: 1958 Quit date: 1995 Years since quittin.8 Smokeless tobacco: Never Substance and Sexual Activity Drug use: Yes Types: Medical marijuana Sexual activity: Defer Alcohol Use: Not on file Family History: Family History Adopted: Yes Problem Relation Age of Onset Other Other adopted Other Other adopted Anesthesia problems Neg Hx EXAM: There were no vitals taken for this visit. General: Healthy appearing, no distress Psychiatric: Appropriate mood and affect Voice: rough Breathing pattern:Normal Skin: Color, texture, turgor normal. No rashes or concerning lesions on visible skin. Eyes: Lids/periorbital skin normal, conjunctivae clear, EOMs intact. Ears: External ears normal.. Nose: Normal external contour Oropharynx: Lips, mucosa, and tongue normal. Posterior pharynx without erythema or drainage. Neck/Lymphatic: Supple. No adenopathy. Laryngotracheal structures are midline.. Cranial Nerves:II-XII intact by exam.. LARYNGEAL EXAM: PROCEDURE: Flexible Laryngoscopy with Stroboscopy Indication: Dysphonia Attending: Dariana Herrera MD Findings: Nasopharynx clear Palate elevation and closure: Complete Base of tongue, vallecula, epiglottis, and piriform sinuses clear. Subglottis: clear Compression/ hyperfunction: Moderate, L>R FVF squeeze Motion: True vocal folds were bilaterally mobile On Stroboscopy: Mucosa: Small exophytic lesion, somewhat hemorrhagic in appearance, on the right infraglottis, leftvocal fold incompletely visualized due to vocal fold squeeze Mucosal Wave: Reduced over lesion Glottic Closure: Hourglass due to lesion Description of Procedure: The procedure was explained [...] with a history of right-sided T1 laryngeal SCC. He has since had dysplasia in the area. He presents with worsened voice quality. Upon exam, he has an exophytic lesion of his right infraglottis. Though it is possible this is benign,given his history I think it is important that thisis biopsied and treated. For that reason, I have recommended microdirect laryngoscopy with excision of the lesion and KTP laser in the treatment of the patient's dysphonia. The risks and benefits of the procedure, including but not limited to, damage to the teeth, lips, gums, dysgeusia, numb tongue, worsening of the voice,and the possible need for future procedures were discussed. The patient agrees and wished to proceed. MEDICATIONS ORDERED: No orders of the defined types were placed in this encounter. ORDERS PLACED: No orders of the defined types were placed in this encounter. DISPOSITION:OR Dariana Herrera MD [facility] Division of Laryngology Department of Otolaryngology--Head & Neck Surgery RE SCHOOL documented in this encounter Miscellaneous Notes * Op Note - Nakita Herrera MD - 04/30/2022 8:54 AM CST Images from the original note were not included. PATIENT NAME: Pasquale Sanchez : 1945 DATE OF SURGERY: 04/30/2022 ANESTHESIA: General Surgeon(s) and Role: * Nakita Herrera MD - Primary * Lui Thompson MD - Resident - Assisting PRE-OPERATIVE DIAGNOSIS: Pre-op Diagnosis * 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] POST-OPERATIVE DIAGNOSIS: Post-op Diagnosis * 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] NAME OF PROCEDURE: 1. Suspension microlaryngoscopy with KTP laser photoablation of right vocal fold lesion OPERATIVE FINDINGS: Exophytic, rounded, hemorrhagic appearing right vocal fold lesion emanating from the infraglottis Challenging view of anterior commissure, requiring head flexion, anterior pressure and use of OP laryngoscope INDICATIONS FOR PROCEDURE: Pasquale Sanchez is a 76 y.o. male with a history of a right vocal fold lesion. DESCRIPTION OF PROCEDURE PERFORMED: The patient was [...] was then suspended from the yuen stand. This provided a rather posterior view. We used the Ossoff-pilling and this view was also posterior overal, but with anterior pressure we obtained an adequate view. Photodocumentation was first performed using the 0- and 70-degree laryngeal telescopes. The operative microscope was then brought into the field to perform the remainder of the surgery under binocular microscopy for increased accuracy and precision. Wet towels were draped onto the patient's face. A cup forcep was used to biopsy the area. First we biopsied the exophytic lesion. Next, we biopsiedthe fullness slightly posterior to the lesion. This was soft. There were no firm areas to palpation. Next, a 0.4 mm KTP laser fiber set at 30W, 15 ms pulse-width, and 2 pps was then used to photoablate the lesion initially in a non-contact fashion before switching to contact mode to treat the deeper tissue. The suction was then to help lift the lesion off the underlying tissue, and the deeper margin was then treated. Hemostasis was achieved using Afrin-soaked cottonoids, and photodocumentation was again performed using the laryngeal telescopes. An LTA was then sprayed into the patient's airway. The laryngoscope was then taken out of suspension and removed from the patient's mouth, along with the dental guards. The patient was then turned over to anesthesia for recovery. EBL: Minimal IV Fluids: Per anesthesia Specimens: Right vocal cord lesion Posterior right vocal cord Sponge/Instrument/Needle Count: Correct at end of case Condition: Stable to the PACU Attestation: Nakita Mcneal MD, was present and participated in the entirety of the procedure RE SCHOOL documented in this encounter Plan of Treatment [...] Date/Time Associated Diagnosis Comments SURGICAL PATHOLOGY Routine 04/30/2022 9: 29 AM BEFORE SCHOOL Lesion of vocal fold LASER KTP 04/30/2022 8:41 AM BEFORE SCHOOL Lesion of vocal fold Case Notes Microlaryngeal set, sataloff knife, dedo excalibur, OP available. KTP laser Special Needs Microlaryngeal set, sataloff knife, dedo excalibur, OP available. MICROLARYNGOSCOPY WITH BIOPSY/EXCISION LESION 04/30/2022 8:41 AM BEFORE SCHOOL Lesion of vocal fold Case Notes Microlaryngeal set, sataloff knife, dedo excalibur, OP available. KTP laser Special Needs Microlaryngeal set, sataloff knife, dedo excalibur, OP available. documented in this encounter Results * Surgical pathology (04/30/2022 9:29 AM BEFORE SCHOOL) Tissue (Vocal Cord, Biopsy) 04/30/2022 9:29 AM BEFORE SCHOOL Tissue (Vocal Cord, Biopsy) 04/30/2022 9:30 AM BEFORE SCHOOL Narrative PATHOLOGY [facility] - 05/01/2022 11:22 AM BEFORE SCHOOL EPIC results best viewed via link to PDF [facility] [place] [address] Note to Patients: This report may contain [...] PATHOLOGY REPORT FINAL Patient Name: ?? PASQUALE SANCHEZAshanti Gender: ??M : ??1945 (Age: 76) Address: ??[address], [place] ??[address] Hospital #: ??[id number] Taken:04/30/2022 Received:04/30/2022 Reported: 05/01/2022 Patient Type: BWC EP SAME Client ?[facility] Service: Surgery Location: Physician(s): ??Tree Lopezney, [place] Diagnosis: A. ??Larynx, right vocal cord, biopsy ? 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 ??Larynx, right posterior vocal cord, biopsy ? - At least severe dysplasia/squamous cell carcinoma in situ bl/05/01/2022 07:17 By this signature, I attest that the above diagnosis is based upon my personal examination of the slides(and/or other material indicated in the diagnosis). Tejal Rodrigues M.D. Report Electronically Reviewed and Signed Out By ??Tejal Rodrigues M.D. 05/01/2022 11:22:26 Microscopic Description and Comment: Microscopic examination substantiates the above cited diagnosis. Microscopic slide review and interpretation for this case was performed at [facility], Department of Surgical Pathology, [address] [facility], [place] [id number], ??[facility], [place] ??[address] ?? CLIA # [id number]. Kimberly Jnoes M.D. History: The patient is a 76-year-old man with lesion of vocal fold. Operative procedure: Suspension microlaryngoscopy with biopsy/excision of vocal fold lesion and laser KTP. Specimen(s) Received: A: Right vocal cord lesion B: Right posterior vocal cord bx Gross Description: Received in two formalin jars labeled with the patient's identifiers. A. ??Labeled right vocal cord lesion Is a single irregular tissue fragment(s) (measuring 0.3 x 0.3 x 0.1 cm). ?? Labeled A1. Jar 0. B. ??Labeled right posterior vocal cord biopsy Is a single irregular tissue fragment(s) (measuring 0.4 x 0.2 x 0.1 cm). ?? Labeled B1. Jar 0. cnewho/04/30/2022 10:47 PA(s): SONIA Gutiérrez, CT (ASCP) By this signature, I attest that the above diagnosis is based upon my personal examination of the slides(and/or other material). Addenda/Procedures The performance characteristics of some immunohistochemical stains, fluorescence in-situ hybridization tests and immunophenotyping by flow cytometry cited in this report (if any) were determined by the Surgical Pathology and Flow Cytometry Departments at [facility] as part of an ongoing automotive quality manager program and in compliance with federally mandated [...] Surgical Pathology and Flow Cytometry Departments of [facility]. ??It has not been cleared or approved by the U. S. Food and Drug Administration. IMAGES AND SCANNED DOCUMENTS, IF INCLUDED, ONLY VIEWABLE IN PDF VERSION OF REPORT Nakita Herrera MD LAB PATHOLOGY [facility] Final Result PATHOLOGY [facility] [phone] documented in this encounter Visit Diagnoses Diagnosis Lesion of vocal fold- Primary Malignant neoplasm of prostate (HCC) Malignant neoplasm of prostate documented in this encounter Admitting Diagnoses Diagnosis Lesion of vocal fold documented in this encounter Administered Medications Inactive Administered Medications - up to 3 most recent administrations Medication Order MAR Action Action Date Dose Rate Site Lactated Ringer's (LR) infusion 30 mL/hr, intravenous, Continuous, Starting on Sat04/30/22 at 0745, For 4 hours, Pre-Op, Use a 500 ml bag for End Stage Renal Disease Patients. Discontinue if fluid still running once patient arrives to floor. New Bag 04/30/2022 9:35 AM BEFORE SCHOOL Rate/Dose Verify 04/30/2022 8:36 AM BEFORE SCHOOL 30 mL/h r New Bag 04/30/2022 7:21 AM BEFORE SCHOOL 30 mL/hr 30 mL/hr documented in this encounter Discontinued Medications Medication Sig Discontinue Reason Start Date End Da te tamsulosin (FLOMAX) 0.4 mg extended release capsuleIndications:benig n prostatic hyperplasia with lower urinary tract sx Take 0.4 mg by mouth every morning Therapy completed 04/30/2022 tiZANidine (ZANAFLEX) 4 mg tabletIndications:Muscle Spasm Take 4 mg by mouth every 6 (six) hours as needed Therapy completed 03/22/2020 04/30/2022 topiramate (TOPAMAX) 50 mg tabletIndications:Chroni c migraine without aura without status migrainosus, not intractable Take half tablet (25 mg) po twice a day for one week, then one tablet po twice a day Therapy completed 08/03/2021 04/30/2022 meloxicam (MOBIC) 15 mg tabletIndications:Chroni c bilateral low back pain without sciatica Take 1 tablet (15 mg total) by mouth daily Therapy completed 12/05/2021 04/30/2022 biotin 10,000 mcg capsule Therapy completed 04/30/2022 cetirizine 10 mg capsule Take 1 capsule by mouth every morning Therapy completed 04/30/2022 ketoconazole (NIZORAL) 2 % shampoo USE THREE TIMES A WEEK DIRECTED Therapy completed 11/17/2020 04/30/2022 SUMAtriptan (IMITREX) 100 mg tabletIndications:Migrai ne Take one tabet po q2h prn as soon as feel headache is coming. No more than 2 tablets in 24 hours. Therapy completed 08/03/2021 04/30/2022 documented as of this encounter Historical Medications * This list may reflect changes made after this encounter. 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 Continuous Medication Order 04/28/2022 04/29/2022 04/30/2022 Lactated Ringer's (LR) infusion 30 mL/hr, intravenous, Continuous, Starting on Sat04/30/22 at 0745, For 4 hours, Pre-Op, Use a 500 ml bag for End Stage Renal Disease Patients. Discontinue if fluid still running once patient arrives to floor. 0721 (New Bag - Prov ider: Zuleima Castro RN)0836 (Rate/Dose Verify - Provider: Leticia Gresham CRNA)0934 (Paused - Provider: Leticia Gresham CRNA - Comment: Switch to gravity)0935 (New Bag - Provider: Leticia Gresham CRNA)1000 (Anesthesia Volume Adjustment - Provider: Leticia Gresham CRNA)1447 (Due: Stopped) Lactated Ringer's (LR) infusion 125 mL/hr, intravenous, Continuous, Starting on Sat04/30/22 at 0745, For 4 hours, Phase I, Discontinue upon discharge from PACU to the floor. 0745 (Due) Lactated Ringer's (LR) infusion 125 mL/hr, intravenous, Continuous, Starting on Sat04/30/22 at 1030, Phase I, 1004 (Continued from OR - Provider: Radha Kirk RN) PRN Medication Order 04/28/2022 04/29/2022 04/30/2022 acetaminophen (TYLENOL) tablet 1,000 mg 1,000 mg, oral, Once as needed, headaches, other, Breakthrough pain, Starting on Sat04/30/22 at 0952, For 1 dose, Phase I, When able to tolerate PO after consulting with Anesthesiologist., Indications: Pain acetaminophen (TYLENOL) tablet 500 mg 500 mg, oral, Every 6 hours PRN, headaches, other, Breakthrough Pain and Supplement to other pain meds, Starting on Sat04/30/22 at 0706, For 2 doses, Phase I, When able to tolerate PO after consulting with Anesthesiologist. Do not administer if patient has already received Acetaminophen-containing medications in PACU., Indications: Pain diphenhydrAMINE (BENADRYL) injection 12.5 mg 12.5 mg, intravenous, Administer over 1 Minutes, Every 5 min PRN, itching, other, For Nausea, administer 25 mg IV., Starting on Sat04/30/22 at 0706, For 4 doses, Phase I, Max cumulative dose 50 mg., Indications: Itching diphenhydrAMINE (BENADRYL) injection 12.5 mg 12.5 mg, intravenous, Every 5 min PRN, itching, other, For nausea, administer 25 mg IV, Starting on Sat04/30/22 at 0952, For 4 doses, Phase I, Max cumulative dose 50 mg., Indications: Itching fentaNYL (SUBLIMAZE) preservative free injection 25 mcg 25 mcg, intravenous, Every 5 min PRN, 2nd line for pain, Use Fentanyl as 1st line medication for extremely severe pain for outpatients, and follow with oral pain medication., Starting on Sat04/30/22 at 0706, For 4 doses, Phase I, Use as 1st line for outpatients, dose not to exceed 100 mics. If pain still extremely severe after 100 mics of Fentanyl, may proceed to Dilaudid after consulting with Anesthesiologist. If patient able to tolerate PO meds and pain improved after Fentanyl, proceed to Oral pain medication., Indications: Pain fentaNYL (SUBLIMAZE) preservative free injection 25 mcg 25 mcg, intravenous, Every 5 min PRN, 1st line for pain, uncontrolled pain on PACU admission for outpatients, Starting on Sat04/30/22 at 0952, Phase I, Use as 1st line for Outpatients, dose not to exceed 100 mcg. Then proceed to 2nd Line at OC after consulting Anesthesiologist., Indications: Pain hydrALAZINE (APRESOLINE) injection 5 mg 5 mg, intravenous, Administer over 2 Minutes, Every 5 min PRN, high blood pressure, Starting on Sat04/30/22 at 0706, Phase I, Max cumulative dose 20 mg. Dose if systolic BP greater than 180 AND heart rate less than 70., Indications: hypertension HYDROmorphone (DILAUDID) injection 0.2 mg 0.2 mg, intravenous, Administer over 2 Minutes, Every 5 min PRN, 1st line for pain, Use as 1st line pain med for inpatients or for patients with extremely severe pain., Starting on Sat04/30/22 at 0706, Phase I, Use as first line pain [...] Tolerance, Pain, Severe Pain with Opioid Tolerance HYDROmorphone (DILAUDID) injection 0.2 mg 0.2 mg, intravenous, Administer over 2 Minutes, Every 5 min PRN, 2nd line for pain, Use as 1st line for Inpatients at [facility].?Use Use as second line for OC after consulting with Anesthesiologist., Starting on Sat04/30/22 at 0952, Phase I, Notify Anesthesiologist if total PACU dose reaches 2 mg for inpatients and 1 mg total for outpatients and pain score 5/10 or more., Indications: Pain labetaloL (NORMODYNE,TRANDATE) injection 5 mg 5 mg, intravenous, Every 5 min PRN, high blood pressure, Starting on Sat04/30/22 at 0706, For 4 doses, Phase I, Max cumulative dose 20 mg. Dose if systolic blood pressure greater than 180 AND HR greater than 70. labetaloL (NORMODYNE,TRANDATE) injection 5 mg 5 mg, intravenous, at 30 mL/hr, Administer over 2 Minutes, Every 10 min PRN, high blood pressure, Starting on Sat04/30/22 at 0952, Phase I, Max cumulative dose 20 mg. Dose if systolic blood pressure greater than 180 AND HR greater than 70. meperidine (DEMEROL) preservative free injection 12.5 mg 12.5 mg, intravenous, Administer over 5 Minutes, Every 10 min PRN, shivering, Starting on Sat04/30/22 at 0706, For 2 doses, Phase I, Max cumulative dose 25 mg., Indications: Shivering meperidine (DEMEROL) preservative free injection 12.5 mg 12.5 mg, intravenous, Administer over 5 Minutes, Every 10 min PRN, shivering, Starting on Sat04/30/22 at 0952, For 2 doses, Phase I, Max cumulative dose 25 mg., Indications: Shivering naloxone (NARCAN) 0.4 mg/mL injection 0.04-0.4 mg 0.04-0.4 mg, intravenous, Once as needed, other, excessive sedation/respiratory depression, Starting on Sat04/30/22 at 0706, For 1 dose, Phase I, Dilute 0.4 [...] administer over 30 seconds., Indications: Opioid Toxicity oxymetazoline (AFRIN) 0.05 % nasal spray (CANCELED) As needed, Starting on Sat04/30/22 at 0923, Intra-Op 0923 (Given - Provid er: Nakita Herrera MD - Comment: soaked in cottonoids) sodium chloride 0.9% irrigation (CANCELED) As needed, Starting on Sat04/30/22 at 0854, Intra-Op 0854 (Given - Provid er: Nakita Herrera MD - Comment: on sterile field) documented in this encounter Orders Medications Ordered That Quinn ht Not Have Been Administered Count Last Ordered Date First Ordered Date acetaminophen (TYLENOL) tablet 1,000 mg 1 1 06/30/2021 acetaminophen (TYLENOL) tablet 500 mg 1 diphenhydrAMINE (BENADRYL) i njection 12.5 mg 2 04/30/2022 famotidine (PEPCID) injection 20 mg 1 04/30 fentaNYL (SUBLIMAZE) preserv ative free injection 25 mcg 2 04/30/2022 hydrALAZINE (APRESOLINE) injection 5 mg 1 1 06/30/2021 HYDROmorphone (DILAUDID) injection 0.2 mg 2 04/30/2022 labetaloL (NORMODYNE,TRANDAT E) injection 5 mg 2 04/30/2022 Lactated Ringer's (LR) infusion 2 2 meperidine (DEMEROL) preserv ative free injection 12.5 mg 2 04/30/2022 naloxone (NARCAN) 0.4 mg/mL injection 0.04-0.4 mg 1 04/30/2022 oxymetazoline (AFRIN) 0.05 % nasal spray 1 04/30/2022 scopolamine patch 72 hour 1 patch 1 022 sodium chloride 0.9% flush 0.5-20 mL 1 04/04 sodium chloride 0.9% irrigation 1 2 Discharge Count Last Ordered Date First Orde red Date DISCHARGE PATIENT 1 04/30/2022 documented in this encounter Care Teams Stopper Setter Relationship Specialty [place] [address] [place] [address] Rheumatology 02/21/17 Lashay Downs, RN Registered Nurse Pain Management 06/17/17 Duke Do, RN Registered Nurse 09/09/17 Ngozi Petty MD Radiation Oncologist Radiation Oncology 02/05/19 Jose Roberto Marx MD Referring Physician Otolaryngology 02/05/19 documented as of this encounter
--- OUTSIDE RECORDS SUMMARY | 2024-06-14 16:48 | XMS_ITS | Encounter Summary ---
Author Organization [facility] Healthcare Address [address] [place] [address] Care Team Providers Care Loan Review Manager Name Role Phone Criss Blanco MD Unavailable Lashay Downs RN Unavailable Unavailab Duke Goodwin RN Unavailable UnavailNgozi Husain MD Unavailable Jose Roberto Marx MD Unavailable [phone] Encounter Details Date Type Department Care Team (Late st Contact Info) Description 10/13/2020 12:30 PM CDT - 10/13/2020 2:25 PM CDT Surgery [facility] Operating Room [address] [place] [address] Nathanael Valdez MD [address] [place] [address] LASER KTP Surgery Details Date/Time Status Location OR Service Patient Class Case Class Case Type Trauma Case? 10/13/2020 12:30 PM Posted [facility] OR POD 5 219 Otolaryngology Outpatient Elective Panel 1 Procedure LRB Anes Op Region Wound Class Comments LASER KTP N/A Choice Class II - Lul an Contaminated Suspension microlaryngoscopy with KTP laser treatment Right General Throat Class I I - Clean Contaminated Surgeon Surgeon Role Service Panel Mima Trevino MD Resident - Assisting Ot olaryngology 1 Nathanael Valdez MD Primary Otolaryngology 1 Special Needs KTP laser documented in this encounter Social History Tobacco Use Types Packs/Day Years Used Date Smoking Tobacco: Former Cigarettes 1.5 37 1 959 - 1995 Smokeless Tobacco: Never Alcohol Use Standard Drinks/Week Comments Yes 3 (1 standard drink = 0.6 oz pur e alcohol) AUDIT-C Answer Date Recorded Q1: How often do you have a drink containing alc ohol? 2-4 times a month 10/13/2020 Q2: How many drinks containi ng alcohol do you have on a typical day when you are drinking? 1 or 2 10/13/2020 Q3: How often do you have si x or more drinks on one occasion? 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 on file Not on natalie e documented as of this encounter Last Filed Vital Signs Vital Sign Reading Time Taken Comments Blood Pressure 144/94 10/13/2020 2:20 PM CDT Pulse 73 10/13/2020 2:20 PM CDT Temperature 35.8 ??C (96.4 ??F) 10/13/2020 1:47 PM CD T Respiratory Rate 22 10/13/2020 2:20 PM CDT Oxygen Saturation 96% 10/13/2020 2:20 PM CDT Inhaled Oxygen Concentration - - Weight 95.3 kg (210 lb) 10/05/2020 3:20 PM CDT Height 185.4 cm (6' 1 ) 10/05/2020 3:20 PM CDT Body Mass Index 27.71 10/05/2020 3:20 PM CDT documented in this encounter Discharge Instructions * Attachments The following attachments cannot be sent through Care Everywhere. * [facility] PATHWAY TO EXCELLENT CARE AFTER SURGERY documented in this encounter Medications at Time of Discharge multivitamin capsuleIndication s:Vitamin Deficiency Prevention Take 1 capsule by mouth every morning vit A/vit C/vit E/zinc/copper (PRESERVISION AREDS ORAL) Take 1 capsule by mouth 2 (two) times a day biotin 5,000 mcg tablet,disintegra tingIndications:h ealth Take 5,000 mcg by mouth every morning 07/20/202 1 cetirizine 10 mg capsule Take 1 capsule by mouth every morning 2 famotidine (PEPCID) 40 mg tablet Take 1 tablet (40 mg total) by mouth nightly 03/28/2020 3 methotrexate 2.5 mg tablet Take 6 tablets (15 mg total) by mouth once a week saturday02/02/2020 3 omeprazole (PriLOSEC) 40 mg capsuleIndication s:GERD Take 40 mg by mouth every morning 03/22/2020 1 oxyCODONE-acetami nophen (PERCOCET) 5-325 mg per tabletIndications :Pain Take 1 tablet by mouth every 4 (four) hours as needed for pain 15 tablet 10/13/2020 2 tamsulosin (FLOMAX) 0.4 mg extended release capsuleIndication s:benign prostatic hyperplasia with lower urinary tract sx Take 0.4 mg by mouth every morning 2 tiZANidine (ZANAFLEX) 4 mg tabletIndications :Muscle Spasm Take 4 mg by mouth every 6 (six) hours as needed 03/22/2020 2 UNABLE TO FIND Take 1 each by mouth nightly as needed THC gummie-25mg 4 documented as of this encounter Ordered Prescriptions Prescription Sig Dispense Quantity Refills Last Filled Start Date End Date oxyCODONE-acetamin ophen (PERCOCET) 5-325 mg per tabletIndications: Pain Take 1 tablet by mouth every 4 (four) hours as needed for pain 15 tablet 10/13/2020 04/06/2022 documented in this encounter Discharge Disposition Disposition Code Departure Means Destination Discharge to home or self care documented in this encounter H&P Notes * Nathanael Valdez MD - 10/13/2020 11:19 AM CDT I have reviewed the H&P, examined the patient, and endorse the findings as written. Plan of Care : Based on the above findings, I consider Pasquale Sanchez to be an acceptable risk for : Procedure(s): LASER KTP Suspension microlaryngoscopy with KTP laser treatment Source Note - Nathanael Valdez MD - 10/04/2020 9:40 AM CDT PATIENT NAME: Pasquale Sanchez : 1945 DOS: 10/04/2020 Referring Physician: ZOILA Kuo Chief Complaint: Chief Complaint Patient presents with ??? Dysphonia Subjective Pasquale Sanchez is a 75 y.o. 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 He is doing well and has no new issues. He denies dysphagia, odynophagia, referred otalgia, or hemoptysis. 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 HENT: Negative. Eyes: Negative. Respiratory: Negative. Cardiovascular: Negative. Gastrointestinal: Negative. Endocrine: Negative. Genitourinary: Negative. Musculoskeletal: Negative. Skin: Negative. Allergic/Immunologic: Negative. Neurological: Negative. Hematological: Negative. Psychiatric/Behavioral: Negative. Objective Physical Exam HENT: Head: Normocephalic and atraumatic. Right Ear: Tympanic membrane, external ear and ear canal normal. Left Ear: Tympanic membrane, external ear and ear canal normal. Nose: Nose normal. Mouth/Throat: Uvula is midline, oropharynx is clear and moist and mucous membranes are normal. Mucous membranes are moist. Tonsils are 1+ on the right. Tonsils are 1+ on the left. Oropharynx is clear. Eyes: Pupils are equal, round, and reactive to light. Conjunctivae are normal. Pulmonary/Chest: Effort normal. Abdominal: Soft. Normal appearance. Musculoskeletal: General: Normal range of motion. Cervical back: Normal range of motion and neck supple. Neurological: He is alert. He is disoriented. Skin: Skin is warm. Psychiatric: His behavior is normal. Mood, judgment and thought content normal. Laryngeal Exam: Flexible videostroboscopy was performed today by me using scope #[id number] in order to evaluate the laryngeal biomechanics and vocal fold oscillatory properties that cannot otherwise be appreciated on flexible plain light or indirect mirror examination. The bilateral nasal cavities were anesthetized with 4% topical lidocaine and oxymetazoline, and the distal chip transnasal laryngoscope was introduced through the right nasal cavity and advanced into the oropharynx. The base of tongue, vallecula, supraglottal, and hypopharyngeal structures are anatomically normal in appearance. The mobility demonstrates symmetric abduction and adduction of the bilateral vocal folds. During phonation, glottic closure is complete. The mucosal wave is intact and symmetric. There is no supraglottic hyperfunction present on exam. Paradoxical vocal fold motion was: not seen on exam. The scope was then removed from the patient's nose, and he tolerated the procedure well. There was a new mucosal lesion on the inferior aspect of the posterior right TVC concerning for possible disease recurrence. Assessment/Plan Squamous cell carcinoma of larynx (CMS/HCC) 75 yo M with a h/o [id number] TVC SCCA s/p KTP laser, presenting with new right TVC lesions concerningfor malignancy. Plan to proceed to the OR for biopsy and laser treatment of the new right TVC lesions. No orders of the defined types were placed in this encounter. Disposition: No follow-ups on file. Nathanael Valdez MD, FACS Manager Infrastructure [facility] Division of Laryngology Department of Otolaryngology--Head & Neck Surgery Portions of this note were dictated using M*Modal Fluency Direct. Surgical Services Asst variances may occur. I have seen and examined the patient. I agree with the findings and plan of care as documented in the resident/fellow's note and as discussed with the resident/fellow. documented in this encounter Miscellaneous Notes * Perioperative Nursing Note - Marlene Kraft RN - 10/13/2020 3:[address] Valdez here to speak with pt * Perioperative Nursing Note - Marlene Kraft RN - 10/13/2020 3:00 PM CDT Pt requesting to speak with surgeon about surgery. Dr Valdez called and will be here after he finishes surgery * Perioperative Nursing Note - Shereen Ferro RN - 10/13/2020 2:28 PM CDT Patient's daughter called for status update. En route to hospital at present time * Perioperative Nursing Note - Shereen Ferro RN - 10/13/2020 2:28 PM CDT Belongings retrieved from SW LOCKERS, sealed, and placed on bed. * Perioperative Nursing Note - Marlene Kraft RN - 10/13/2020 2:15 PM CDT Belongings retrieved from SW LOCKER # 8, sealed, and placed on bed. * Op Note - Nathanael Valdez MD - 10/13/2020 12:30 PM CDT PATIENT NAME: Pasquale Sanchez : 1945 DATE OF SURGERY: 10/13/2020 ANESTHESIA: General Surgeon(s) and Role: * Nathanael Valdez MD - Primary * Mima Trevino MD - Resident - Assisting PRE-OPERATIVE DIAGNOSIS: Pre-op Diagnosis * 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] POST-OPERATIVE DIAGNOSIS: Post-op Diagnosis * 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] NAME OF PROCEDURE: 1. Suspension microlaryngoscopy with KTP laser excision of right vocal fold lesion OPERATIVE FINDINGS: Exophytic, very superficial mass on infraglottic right vocal fold. All margins assessed INDICATIONS FOR PROCEDURE: Pasquale Sanchez is a 75 y.o. male with a history of T1a glottic squamous cell carcinoma. DESCRIPTION OF PROCEDURE PERFORMED: The patient was [...] patient's upper and lower dentition and the Insighterao Excalibur laryngoscope was inserted in the usual fashion, sweeping the tongue base to the left in order to gain access to the laryngeal introitus where it was then suspended from the yuen stand. The operative microscope was then brought into the field to perform the remainder of the surgery under binocular microscopy for increased accuracy and precision. Wet towels were draped onto the patient's face. A 0.6 mm KTP laser fiber set at 3 garcia continuous was then used to excise with a 1 mm margin around the lesion, removing it completely. It easily lifted off the underlying lamina propria and was submitted for permanent. Margins were then removed using cup forceps and microscissors from the deep, inferior, anterior, posterior, and superior margins. Consultation with the frozen section team suggested that the specimens were too tiny to get an adequate read on frozen. All of the margins will be deferred for permanent. Hemostasis was achieved using Afrin-soaked cottonoids, and [...] EBL: Minimal IV Fluids: Per anesthesia Specimens: 1. Right vocal fold lesion 2. Deep margin 3. Inferior margin 4. Anterior margin 5. Posterior margin 6. Superior margin Sponge/Instrument/Needle Count: Correct at end of case Condition: Stable to the PACU Attestation: I, Nathanael Valdez MD, was present and participated in the entirety of the procedure * Pre-Procedure Instructions - Kavya CarsonAshanti, GLUE LINE OPERATOR - 10/06/2020 8:58 AM CDT Center for Preoperative Assessment and Planning CPAP Clinic Location: [facility] The night before your surgery: * Do not eat or drink anything after midnight. This includes candy, mint, gums, chewable antacids (TUMS, Rolaids) and cough drops * Do not smoke after midnight the night before surgery. It is best to stop smoking now to improve your health. The morning of your surgery: * You may brush your teeth and rinse your mouth out. * Do not wear jewelry, body piercings, makeup, hairpins, false eyelashes or contact lenses to the hospital. * Leave any valuables at home or with your family. Outpatient Surgery: * You must have a [...] For Your Medications: Pre-Surgery Instructions: Medication Instructions ??? biotin 5,000 mcg tablet,disintegrating Don't take on day of surgery ??? cetirizine 10 mg capsule Don't take on day of surgery ??? famotidine (PEPCID) 40 mg tablet Don't take on day of surgery ??? methotrexate 2.5 mg tablet As per Rheumatology and Surgeon's instructions ??? multivitamin capsule Stop taking 1 week prior to surgery ??? omeprazole (PriLOSEC) 40 mg capsule Take morning of surgery ??? tamsulosin (FLOMAX) 0.4 mg extended release capsule Take morning of surgery ??? tiZANidine (ZANAFLEX) 4 mg tablet Don't take on day of surgery ??? UNABLE TO FIND Don't take on day of surgery ??? vit A/vit C/vit E/zinc/copper (PRESERVISION AREDS ORAL) Stop taking 1 week prior to surgery Stop THC for 24 hrs prior to surgery. General Instructions For Medications: ?? * If prescribed a non-steroidal anti-inflammatory such as Meloxicam, Celebrex, or Naproxen by your surgeon, take as prescribed and follow your surgeon's instructions for all other non-steroidal anti-inflammatory medications prior to your surgery. ?? For medications that you are instructed to take on the morning of surgery, take the medications with a few sips of water. ?? Stop all of these medications 7-14 days prior to your surgery: Vitamin E, Herbal medicines, DietPills ?? If you have pain, you may take tylenol (acetaminophen). Do not take more than 6 tablets or 3000 mg (3 g) within a 24 period. Call your surgeon and the CPAP clinic if any of the following happens before surgery: ?? Any changes in your health ?? You have a fever ?? You have any signs of an infection (chest, urinary tract or tooth) ?? You have been to the Emergency Room or were in the hospital ?? You have started taking any new medications ?? You have questions about a bowel prep or special diet before surgery * Perioperative Nursing Note - Kierra Pedraza RN - 10/05/2020 3:36 PM CDT Center for Preoperative Assessment and Planning Perioperative Nursing Note Telephone Preoperative Evaluation ([facility]) - TELEPHONE ONLY, NO PHYSICAL EXAM Date: 10/05/20 Vitals: 10/05/20 1520 Weight: 95.3 kg (210 lb) Height: 185.4 cm (6' 1 ) CHEST CIRCUMFERENCE: Social History Tobacco Use Smoking Status Former Smoker ??? Packs/day: 1.50 ??? Years: 30.00 ??? Pack years: 45.00 ??? Types: Cigarettes ??? Start date: 1958 ??? Quit date: 1995 ??? Years since quittin.3 Smokeless Tobacco Never Used Substance and Sexual Activity Drug Use Not Currently Alcohol Use How often do you have a drink containing alcohol?: 2-4 times a month How many drinks containing alcohol do you have on a typical day when you are drinking?: 1 or 2 How often do you have six or more drinks on one occasion?: Never Outpatient Medications Marked as Taking for the 10/13/20 encounter (Hospital Encounter) Medication Sig Dispense Refill ??? biotin 5,000 mcg tablet,disintegrating Take 5,000 mcg by mouth every morning ??? cetirizine 10 mg capsule Take 1 capsule by mouth every morning ??? famotidine (PEPCID) 40 mg tablet Take 40 mg by mouth nightly ??? methotrexate 2.5 mg tablet Take 6 tablets by mouth once a week saturday ??? multivitamin capsule Take 1 capsule by mouth every morning ??? omeprazole (PriLOSEC) 40 mg capsule Take 40 mg by mouth every morning ??? tamsulosin (FLOMAX) 0.4 mg extended release capsule Take 0.4 mg by mouth every morning ??? tiZANidine (ZANAFLEX) 4 mg tablet Take 4 mg by mouth every 6 (six) hours as needed ??? UNABLE TO FIND Take 1 each by mouth nightly as needed THC gummie-25mg ??? vit A/vit C/vit E/zinc/copper (PRESERVISION AREDS ORAL) Take 1 capsule by mouth 2 (two) times aday Implants No active implants to display in this view. SKIN Piercings Remaining: No Wound (LDAs) Type of Wound (LDA): (none) SCREENINGS Marcelle index score: 100 PATIENT CARE PLANNING Advance Directives (For Healthcare) Advance Directive: Patient has advance directive, copy in chart Assistive Devices/DME: Eyeglasses Discharge Planning Type of Residence: Private residence Living Arrangements: Alone Support Systems: Family members Assistance Needed: Senior Net Software Developer and helper: Brother Raimundo Patient expects to be discharged to:: Private residence COVID Screening Covid-19 Screening In the last 10 days have you had any new or worsening cough, SOB, fever (>=100F), body aches, loss of taste or smell, diarrhea or vomiting, or sore throat?: No Have you had close contact with anyone with confirmed or suspected COVID-19 in the past 2 weeks?: No Do you live in or work in a congregate living facility (ex. assisted living/assisted facility, [place], care home)?: No Have you tested positive for COVID-19 within the last 14 days?: No Have you previously tested positive for COVID-19? No Have you had a COVID -19 exposure within the past 14 days? No Were both or all people exposed wearing masks (cloth, isolation, surgical or N95)? N/A TESTING PLAN-See Instructions for plan We recommend you Self-Isolate after COVID Testing: Stay at home, if possible until your surgery date. Maintain a 6 foot distance from other people (social distancing). Avoid touching your eyes, nose and mouth with unwashed hands. Wash your hands often with soap and water for at least 20 seconds. Use an alcohol- based hand community service representative that contains at least 60% alcohol if soap and water are not available. ADDITIONAL COMMENTS/ FOLLOW UP * Pre-Procedure Instructions - Kierra Pedraza RN - 10/05/2020 3:35 PM CDT PRE-SURGICAL INSTRUCTIONS ??? General Information ?? Surgery location provided to patient. ?? Arrival time and surgical time will be provided by your surgeon. ?? Wear something clean, loose, comfortable and easy to get in and out of. ?? Leave your valuables and any jewelry at home (No metal or piercings are allowed in the operatingroom) ?? Bring your insurance card, a photo ID (like a Senior Net Software Developer's license) and a method of payment for any insurance copay, deductible, or copay for discharge medications. ?? Bring a complete, up to date list of all of your medications including any over the counter medications or supplements you may take. ? How To Prepare Your Skin For Surgery Antiseptic/antibacterial soap will decrease the amount of germs on your skin. It is important to minimize the risk of getting an infection by doing the following: ?? Change all the linens on the bed the night before surgery so you are sleeping on clean fresh sheets and pillowcases. ?? Shower the evening before and the morning of surgery with an antibacterial soap such as Dial or a surgical soap known as chlorhexidine (Hibiclens). You can purchase this soap at any pharmacy or department store or come by our [facility] clinic and we will give it to you free of charge. Do not use thissoap on your face or hair. ?? Wash your hair and face with your regular shampoo (no conditioners) and facial cleanser. ?? Take a shower using ?? cup (2 oz.) of antiseptic soap applied to a clean fresh washcloth. Scrub your entire body from the neck down. If you can't reach the surgical site, such as your back, have someone help you with your shower. Step out of the water and leave soap on your skin for 2 minutes prior to rinsing off. Rinse thoroughly and dry yourself off with a clean fresh dry towel. ?? Wear clean clothes or pajamas to sleep in and on morning of surgery. ?? Nothing extra on the skin or hair such as deodorant, makeup, hair products, lotions, powders, Vaseline, creams, or perfumes the evening before and the morning of surgery. ?? The morning of the surgery repeat the shower process with the remaining ?? cup (2 oz.) of surgical scrub using another fresh wash cloth and towel. ?? Do not shave the morning of surgery. ?? REMEMBER no deodorant, make-up, lotions, powders, creams, Vaseline, oils, conditioners or hair products the morning of the surgery. COVID TESTING PLAN COVID Test Request Placed in Epic to [facility]. Test to be performed on 10/10 at [facility], [place], [place] [address], M-F 8a-7:30p, Sat/Sun 8a-7:30p. HOLIDAY hours may vary. If you have COVID testing or should have COVID testing for your surgery/procedure, please read below section: If you need to reschedule your COVID test to a different location or if your surgery gets rescheduled, you MUST call [phone] Saturday-Saturday 8am-4:30pm to get your COVID testing rescheduled or your lab order will not be available at Testing Sites. COVID Testing is only valid for up to 96 hours prior to surgery date, unless otherwise specified. If you are unable to reach staff at the above phone number, please call the CPAP Staff at [phone]. This number cannot order a lab test, but can attempt to contact the above number/staff to assist you. We are available Saturday-Saturday 8am-4:30pm . We recommend you Self-Isolate after COVID Testing: Stay at home, if possible until your surgery date. Maintain a 6 foot distance from other people (social distancing). Avoid touching your eyes, nose and mouth with unwashed hands. Wash your hands often with soap and water for at least 20 seconds. Use an alcohol- based hand community service representative that contains at least 60% alcohol if soap and water are not available. All patients should read below section: All visitors/patients are being asked to wear a clean mask when entering the hospital. COVID 19 Updates & Visitor Policy: Please access [email or web address] for the most updated information. Information on [facility]: Please view [email or web address] (Patient & Visitor Information) for additional details regarding Advanced Directive forms, AWARE, directions, parking information, lodging, Internet access, dining and more. Information on [facility]: Please view [email or web address] (Patient and Visitor Information) for parking/directions and more. For MyChart information, to activate account or password recovery, please go to [email or web address] or call [phone] (toll-free: [phone]). Surgery Times: For patients having surgery @ [facility] or [facility], if your surgeon's office has not notified you of your surgery time by NOON THE BUSINESS DAY BEFORE your surgery, please call [phone] and ask for your surgeon'soffice Dr Nathanael Valdez. documented in this encounter Plan of Treatment [...] on stairs Contact your local community or [facility] for information on exercise, fall prevention programs, or options for improving home safety. documented as of this encounter Procedures Procedure Name Priority Date/Time Associated Diagnosis Comments SURGICAL PATHOLOGY Routine 10/13/2020 12:59 PM CDT Squamous cell carcinoma of larynx (CMS/HCC) MICROLARYNGOSCOPY WITH SUSPENSION 10/13/2020 12:14 PM CDT Squamous cell carcinoma of larynx (CMS/HCC) Special Needs KTP laser LASER KTP 10/13/2020 12:14 PM CDT Squamous cell carcinoma of larynx (CMS/HCC) Special Needs KTP laser documented in this encounter Results * Surgical pathology (10/13/2020 12:59 PM CDT) Tissue (Soft tissue biopsy) 10/13/2020 12:59 PM CDT Tissue (Soft tissue biopsy) 10/13/2020 1:04 PM CDT Tissue (Soft tissue biopsy) 10/13/2020 1:08 PM CDT Tissue (Soft tissue biopsy) 10/13/2020 1:09 PM CDT Tissue (Soft tissue biopsy) 10/13/2020 1:09 PM CDT Tissue (Soft tissue biopsy) 10/13/2020 1:09 PM CDT Narrative PATHOLOGY [facility] - 10/18/2020 10:07 AM CDT EPIC results best viewed via link to PDF [facility] [place] [facility] [place] [address] SURGICAL PATHOLOGY REPORT FINAL Patient Name: ?? PASQUALE SANCHEZ Gender: ??M : ??1945 (Age: 75) Address: ??[address] [place] [address] Hospital #: ??[id number] Taken:10/13/2020 Received:10/13/2020 Reported: 10/18/2020 Patient Type: [facility] ?? Service: Surgery Location: [facility] Physician(s): ??Nathanael Valdez M.D. ZOILA Kuo Diagnosis: A. ??Larynx, right vocal fold lesion, biopsy ? - Minute superficial fragments of cauterized epithelium, suspicious for dysplasia (see comment) ?? B. ??Larynx, deep margin, biopsy ? - Fibrous tissue with no evidence of malignancy ? C. ??Larynx, inferior margin, biopsy ? - Cauterized high-grade dysplasia ? D. ??Larynx, anterior margin, biopsy ? - No evidence of dysplasia or malignancy ? E. ??Larynx, superior margin, biopsy ? - No evidence of dysplasia or malignancy F. ??Larynx, posterior margin, biopsy ? - No evidence of dysplasia or malignancy ?? [facility] [place]/17/2020 10:09 By this signature, I attest that the above diagnosis is based upon my personal examination of the slides(and/or other material indicated in the diagnosis). Tejal Rodrigues M.D. Report Electronically Reviewed and Signed Out By ??Tejal Rodrigues M.D. 10/18/2020 10:07:23 Microscopic Description and Comment: Microscopic examination substantiates the above cited diagnosis. Multiple deeper recuts were obtained and examined of the right vocal fold lesion (part A) and superior margin (part E). ? Gigi Massey MD, PhD History: The patient is a 75-year-old man with a history of squamous cell carcinoma of the larynx. ??Operative procedure: Microlaryngoscopy with laser treatment. Specimen(s) Received: A: Right vocal fold lesion B: Deep margin C: Inferior margin D: Anterior margin E: Superior margin F: Posterior margin Gross Description: Received in formalin labeled with the patient's identifiers and left vocal fold lesion are three wispy pieces of brown tissue (less than 0.1 to 0.1 cm in greatest dimension). ??Labeled A1, filtered. ??Jar 0. Received in formalin labeled with the patient's identifiers and deep margin is a 0.1 cm piece of massey tissue with a scant amount of accompanying debris. ??Labeled B1, filtered. ??Jar 0. Received in formalin labeled with the patient's identifiers and inferior margin is a 0.2 cm piece of massey tissue. ??Labeled C1, filtered. ??Jar 0. Received in formalin labeled with the patient's identifiers and anterior margin is a 0.1 cm piece of massey tissue. ??Labeled D1, filtered. ??Jar 0. Received in formalin labeled with the patient's identifiers and superior margin is a 0.5 cm elongated piece of massey tissue. ??Labeled E1, filtered. ??Jar 0. Received in formalin labeled with the patient's identifiers and posterior margin is a 0.2 cm piece of massey tissue. ??Labeled F1. ??Jar 0. [facility] 10[facility]29 PA(s): Iris Cobos MS, PA ([facility]) By this signature, I attest that the above diagnosis is based upon my personal examination of the slides(and/or other material). Addenda/Procedures The performance characteristics of some immunohistochemical stains, fluorescence in-situ hybridization tests and immunophenotyping by flow cytometry cited in this report (if any) were determined by the Surgical Pathology Department at [facility] as part of an ongoing air quality technician program and in compliance with federally [...] performance characteristics determined by the Surgical Pathology Department of [facility]. ??It has not been cleared or approved by the U. S. Food and Drug Administration. IMAGES AND SCANNED DOCUMENTS, IF INCLUDED, ONLY VIEWABLE IN PDF VERSION OF REPORT Nathanael Valdez MD LAB PATHOLOGY ORDERABLES Final Result PATHOLOGY [facility] 3rd Floor [place], [place] [phone] documented in this encounter Visit Diagnoses Diagnosis 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)- Primary Malignant neoplasm of larynx, unspecified site 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) Malignant neoplasm of larynx, unspecified site documented in this encounter Admitting Diagnoses Diagnosis 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) Malignant neoplasm of larynx, unspecified site documented in this encounter Administered Medications Inactive Administered Medications - up to 3 most recent administrations Medication Order MAR Action Action Date Dose Rate Site HYDROmorphone (DILAUDID) injection 0.2 mg 0.2 mg, intravenous, Administer over 2 Minutes, Every 10 min PRN, 1st line for pain, Starting on Manasa 10/13/20 at 1356, Phase I, Switch to 2nd line analgesic order if pain is uncontrolled or increasing after 2 doses. Notify Anesthesiologist if total PACU dose reaches 2 mg and pain score 5/10 or more., Indications: PainIndications:Pain Given 10/13/2020 2:52 PM CDT 0.2 mg Right Hand Lactated Ringer's (LR) infusion 30 mL/hr, intravenous, Continuous, Starting on Manasa 10/13/20 at 1200, Pre-Op New Bag 10/13/2020 12:18 PM CDT oxymetazoline (AFRIN) 0.05 % nasal spray As needed, Starting on Manasa 10/13/20 at 1246, Intra-Op Given 10/13/2020 12:46 PM CDT 1 application (deactivated) Surgical Site sodium chloride 0.9% irrigation As needed, Starting on Manasa 10/13/20 at 1247, Intra-Op Given 10/13/2020 12:47 PM CDT 1,000 mL Surgical Site documented in this encounter Discontinued Medications Medication Sig Discontinue Reason Start Date End Da te cephalexin (KEFLEX) 500 mg capsule TAKE 1 CAPSULE BY MOUTH EVERY 8 HOURS Error 07/01/2020 10/05/2020 documented as of this encounter Historical Medications * This list may reflect changes made after this encounter. multivitamin capsuleIndication s:Vitamin Deficiency Prevention Take 1 capsule by mouth every morning UNABLE TO FIND Take 1 each by mouth nightly as needed THC gummie-25mg 10/23/2023 cetirizine 10 mg capsule Take 1 capsule by mouth every morning 04/30/2022 added in this encounter Active and Recently Administered Medications Times are shown in CDT. Scheduled Medication Order 10/11/2020 10/12/2020 10/13/2020 acetaminophen (TYLENOL) tablet 500 mg 500 mg, oral, Once, On Manasa 10/13/20 at 1430, For 1 dose, Phase I, When able to tolerate PO., Indications: Pain 1430 (Due) Continuous Medication Order 10/11/2020 10/12/2020 10/13/2020 Lactated Ringer's (LR) infusion 30 mL/hr, intravenous, Continuous, Starting on Manasa 10/13/20 at 1200, Pre-Op 1218 (New Bag - Prov ider: Eloy Johnson MD)1301 (Anesthesia Volume Adjustment - Provider: Eloy Johnson MD)1515 (Stopped - Provider: Marlene Kraft RN) PRN Medication Order 10/11/2020 10/12/2020 10/13/2020 diphenhydrAMINE (BENADRYL) injection 12.5 mg 12.5 mg, intravenous, Administer over 2 Minutes, Every 15 min PRN, itching, Starting on Manasa 10/13/20 at 1356, For 2 doses, Phase I, Max cumulative dose 50 mg., Indications: Itching haloperidol (HALDOL) injection 1 mg 1 mg, intravenous, Once as needed, nausea, vomiting, Starting on Manasa 10/13/20 at 1356, For 1 dose, Phase I, If nausea/vomiting not relieved by ondansetron within 30 minutes or if ondansetron has been given within the last 6 hours. HYDROmorphone (DILAUDID) injection 0.2 mg 0.2 mg, intravenous, Administer over 2 Minutes, Every 10 min PRN, 1st line for pain, Starting on Manasa 10/13/20 at 1356, Phase I, Switch to 2nd line analgesic order if pain is uncontrolled or increasing after 2 doses. Notify Anesthesiologist if total PACU dose reaches 2 mg and pain score 5/10 or more., Indications: Pain 1452 (Given - Provid er: Marlene Kraft RN) HYDROmorphone (DILAUDID) injection 0.4 mg 0.4 mg, intravenous, Administer over 2 Minutes, Every 10 min PRN, 2nd line for pain, Starting on Manasa 10/13/20 at 1356, Phase I, May administer 10 mintes after 2nd dose of 1st line analgesic agent for uncontrolled or increasing pain. Revert to 1st line dose if POSS of 3. Notify Anesthesiologist if total PACU dose reaches 2 mg and pain score 5/10 or more., Indications: Pain naloxone (NARCAN) 0.4 mg/mL injection 0.04-0.4 mg 0.04-0.4 mg, intravenous, Once as needed, other, excessive sedation/respiratory depression, Starting on Manasa 10/13/20 at 1356, For 1 dose, Phase I, Dilute 0.4 [...] Once as needed, nausea, vomiting, Starting on Manasa 10/13/20 at 1356, For 1 dose, Phase I, Proceed to haloperidol if ondansetron has been given within the last 6 hours. oxyCODONE (ROXICODONE) tablet 5 mg 5 mg, oral, Once as needed, 1st line for pain, Starting on Manasa 10/13/20 at 1356, For 1 dose, Phase I, When able to tolerate PO., Indications: Pain oxymetazoline (AFRIN) 0.05 % nasal spray (CANCELED) As needed, Starting on Manasa 10/13/20 at 1246, Intra-Op 1246 (Given - Provid er: Nathanael Valdez MD) sodium chloride 0.9% irrigation (CANCELED) As needed, Starting on Manasa 10/13/20 at 1247, Intra-Op 1247 (Given - Provid er: Nathanael Valdez MD) documented in this encounter Orders Medications Ordered That Quinn ht Not Have Been Administered Count Last Ordered Date First Ordered Date acetaminophen (TYLENOL) tablet 500 mg 1 diphenhydrAMINE (BENADRYL) i njection 12.5 mg 1 10/13/2020 haloperidol (HALDOL) injection 1 mg 1 10/13 HYDROmorphone (DILAUDID) injection 0.4 mg 1 10/13/2020 Lactated Ringer's (LR) infusion 1 naloxone (NARCAN) 0.4 mg/mL injection 0.04-0.4 mg 1 10/13/2020 ondansetron (ZOFRAN) injection 4 mg 1 10/13 oxyCODONE (ROXICODONE) tablet 5 mg 1 2020 sodium chloride 0.9% flush 0.5-20 mL 1 10/01 Diet Count Last Ordered Date First Orde red Date ADULT DISCHARGE DIET 1 10/13/2020 Nursing Count Last Ordered Date First Orde red Date DISCHARGE ACTIVITY 1 10/13/2020 DISCHARGE CALL PROVIDER 3 10/13/2020 documented in this encounter Care Teams Loan Review Manager Relationship Specialty [place] [id number] [facility] [address] [place] [address] Rheumatology 02/21/17 Lashay Downs, RN Registered Nurse Pain Management 06/17/17 Duke Do, RN Registered Nurse 09/09/17 Ngozi Petty MD Radiation Oncologist Radiation Oncology 02/05/19 Jose Roberto Marx MD Referring Physician Otolaryngology 02/05/19 documented as of this encounter
--- OUTSIDE RECORDS SUMMARY | 2024-06-14 16:48 | XMS_ITS | Encounter Summary ---
Author Organization [facility] Address [address] [place] [address] Phone Care Team Providers Care Bond Broker Name Role Phone Criss Blanco MD Unavailable Lashay Downs RN Unavailable Unavailab Duke Goodwin RN Unavailable UnavailNgozi Husain MD Unavailable [phone] Jose Roberto Marx MD Unavailable [phone] Reason for Visit * Reason Comments Dysphonia * Consultation (Routine) - Closed Specialty Diagnoses / Procedures Referred By Alcira forrest Referred To Contact Otolaryngology Diagnoses Dysphonia Viraj Romeo, ZOILA [address] [place] [address] Phone: tel: fax: [facility] (All Locations) Referral ID Status Reason Start Date Expiration Date V isits Requested Visits Authorized [id number] Closed Specialty Services Required 06/23/2020 12/20/[phone] Encounter Details Date Type Department Care Team (Late st Contact Info) Description 12/20/2020 9:20 AM CDT Office Visit [facility] ENT [address] [facility] Medical [address] Building [address] [place] [id number] Nathanael Valdez MD [address] [place] [address] 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) (Primary Dx); Dysphonia Social History Tobacco Use [...] file Legal Sex Male 12:56 AM RN L AND D Gender Identity Not on file Sexual Orientation Not on file 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 on file Not on natalie e documented as of this encounter Progress Notes * Nathanael Valdez MD - 12/20/2020 9:20 AM CDT PATIENT NAME: Samuel Sanchez : 1945 DOS: 12/20/2020 Referring Physician: ZOILA Kuo Chief Complaint: Chief Complaint Patient presents with ??? Dysphonia Subjective Samuel Sanchez is a 75 y.o. 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 He is doing well and has no new issues. He denies dysphagia, odynophagia, referred otalgia, or hemoptysis. Oncology History Squamous cell carcinoma of larynx (CMS/HCC) 01/30/2019 Initial Diagnosis Squamous cell carcinoma of larynx (CMS/HCC) Outcomes: GFI: 0 VHI-10: 0 VCI: 0 RSI: 5 Objective Physical Exam Constitutional: He is oriented to person, place, and time. He is cooperative. Non-toxic appearance.He does not appear ill. HENT: Head: Normocephalic and atraumatic. Right Ear: External ear normal. Left Ear: External ear normal. Nose: Nose normal. The patient's voice sounds raspy. The pitch is expected for age & gender. Eyes: Lids are normal. Pulmonary/Chest: Effort normal. No accessory muscle usage or stridor. No respiratory distress. Abdominal: Normal appearance. Neurological: He is alert and oriented to person, place, and time. Psychiatric: His speech is normal. Mood and affect normal. Laryngeal Exam: Flexible videostroboscopy was performed today by me using scope #F1 in order to evaluate the laryngeal biomechanics and vocal fold oscillatory properties that cannot otherwise be appreciated on flexible plain light or indirect mirror examination. The bilateral nasal cavities were anesthetized with 4% topical lidocaine and oxymetazoline, and the distal chip transnasal laryngoscope was introduced through the left nasal cavity and advanced into the oropharynx. The base of tongue, vallecula, supraglottal, and hypopharyngeal structures are anatomically normal in appearance. No lesions are seen. The mobility demonstrates symmetric abduction and adduction of the bilateral vocal folds. During phonation, glottic closure is complete. The mucosal wave is intact and chasing. There is mild supraglottic hyperfunction present on exam. The scope was then removed from the patient's nose, and he tolerated the procedure well. 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 Continue routine surveillance. No orders of the defined types were placed in this encounter. Disposition: Return in about 8 weeks (around 02/14/2021). Nathanael Valdez MD, FACS Back Strip Machine Operator [facility] Division of Laryngology Department of Otolaryngology--Head & Neck Surgery Portions of this note were dictated using M*Modal Fluency Direct. Dip Painter variances may occur. documented in this encounter Miscellaneous Notes * Assessment & Plan Note - Nathanael Valdez MD - 12/20/2020 9:47 AM CDT Associated Problem(s): 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) No evidence of disease on examination today. Continue routine surveillance. documented in this encounter Plan of Treatment [...] on stairs Contact your local community or [facility] for information on exercise, fall prevention programs, or options for improving home safety. 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)- Primary Malignant neoplasm of larynx, unspecified site Dysphonia documented in this encounter Discontinued Medications Medication Sig Discontinue Reason Start Date End Da te biotin 5,000 mcg tablet,disintegratingInd ications:health Take 5,000 mcg by mouth every morning Duplicate order 12/20/2020 omeprazole (PriLOSEC) 40 mg capsuleIndications:GERD Take 40 mg by mouth every morning Duplicate order 03/22/2020 12/20/2020 traMADoL (ULTRAM) 50 mg tablet Take 50 mg by mouth every 6 (six) hours as needed 12/01/2020 12/20/2020 omeprazole (PriLOSEC) 40 mg capsule TAKE 1 CAPSULE BY MOUTH ONCE DAILY 12/06/2020 12/20/2020 documented as of this encounter Historical Medications * This list may reflect changes made after this encounter. omeprazole (PriLOSEC) 40 mg capsule TAKE 1 CAPSULE BY MOUTH ONCE DAILY 12/06/2020 12/20/2020 biotin 10,000 mcg capsule 04/30/2022 traMADoL (ULTRAM) 50 mg tablet Take 50 mg by mouth every 6 (six) hours as needed 12/01/2020 12/20/2020 ketoconazole (NIZORAL) 2 % shampoo USE THREE TIMES A WEEK DIRECTED 11/17/2020 04/30/2022 fluocinonide (LIDEX) 0.05 % external solution 11/17/2020 05/01/2022 added in this encounter Care Teams Bond Broker Relationship Specialty [place] [id number] [facility] [address] [place] [address] Rheumatology 02/21/17 Lashay Downs, RN Registered Nurse Pain Management 06/17/17 Duke Do, RN Registered Nurse 09/09/17 Ngozi Petty MD Radiation Oncologist Radiation Oncology 02/05/19 Jose Roberto Marx MD Referring Physician Otolaryngology 02/05/19 documented as of this encounter
--- OUTSIDE RECORDS SUMMARY | 2024-06-14 16:48 | XMS_ITS | Encounter Summary ---
Author Organization [facility] Healthcare Address [address] [place] [address] Care Team Providers Care Vehicle Dynamics Engineer Name Role Phone Criss Blanco MD Unavailable Lashay Downs RN Unavailable Unavailab Duke Goodwin RN Unavailable UnavailNgozi Husain MD Unavailable [phone] Jose Roberto Marx MD Unavailable [phone] Reason for Referral * Consultation (Routine) - Closed Specialty Diagnoses / Procedures Referred By Contac t Referred To Contact Pain Management Diagnoses Vertebrogenic low back pain Ezequiel Shelton MD [address] [place] [address] [address] THAKUR [address] [place] [address] Phone: tel: fax: [address] [phone] Referral ID Status Reason Start Date Expiration Date V isits Requested Visits Authorized [id number] Closed Specialty Services Required 03/30/2022 09/26/2022 99 99 Question Answer Please select the performing region: [facility] [144] # of visits: 99 Reason for Visit * Reason Comments Follow-up Pain * Consultation (Routine) - Closed Specialty Diagnoses / Procedures Referred By Contac t Referred To Contact Pain Management Diagnoses Vertebrogenic low back pain Ezequiel Shelton MD [address] [facility] [address] [place] [address] Phone: tel: fax: [facility] [address] [place] [address] Referral ID Status Reason Start Date Expiration Date V isits Requested Visits Authorized [id number] Closed Specialty Services Required 03/30/2022 09/26/2022 99 99 Encounter Details Date Type Department Care Team (Latest Contact Info) Description 04/06/2022 1:26 PM CDT - 04/06/2022 11:59 PM CDT Hospital Encounter [facility] 2 [facility] [address], [address] [place] [address] Ezequiel Shelton MD 2 [facility] [address] [place] [address] Chronic bilateral low back pain without sciatica (Primary Dx); DDD (degenerative disc disease), lumbar; Lumbar facet arthropathy; Vertebrogenic low back pain Discharge Disposition: Discharge to home or [...] more drinks on one occasion? 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 Gender Identity Not on file Sexual Orientation Not on file 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 on file Not on natalie e documented as of this encounter Last Filed Vital Signs Vital Sign Reading Time Taken Comments Blood Pressure 119/80 04/06/2022 1:36 PM CDT Pulse 65 04/06/2022 1:36 PM CDT Temperature - - Respiratory Rate 16 04/06/2022 1:36 PM CDT Oxygen Saturation 100% 04/06/2022 1:36 PM CDT Inhaled Oxygen Concentration - - Weight - - Height - - Body Mass Index - - documented in this encounter Discharge Instructions * Attachments The following attachments cannot be sent through Care Everywhere. * Opioid Pain Management (Descriptive Catalog Librarian) (Pashto) documented in this encounter Medications at Time of Discharge multivitamin capsuleIndication s:Vitamin Deficiency Prevention Take 1 capsule by mouth every morning vit A/vit C/vit E/zinc/copper (PRESERVISION AREDS ORAL) Take 1 capsule by mouth 2 (two) times a day methylPREDNISolon e (MEDROL DOSEPACK) 4 mg Dosepack Take as directed on package 1 packet 04/06/2022 2 oxyCODONE-acetami nophen (PERCOCET) 5-325 mg per tabletIndications :Pain Take 1 tablet by mouth daily as needed for pain for up to 7 days 7 tablet 04/06/2022 2 albuterol HFA (PROVENTIL HFA,VENTOLIN HFA,PROAIR HFA) 90 mcg/actuation inhaler INHALE 1 TO 2 PUFFS EVERY 4 TO 6 HOURS NEEDED FOR DIFFICULTY BREATHING 06/26/2021 2 biotin 10,000 mcg capsule 2 cetirizine 10 mg capsule Take 1 capsule by mouth every morning 2 escitalopram (LEXAPRO) 10 mg tablet Take 10 mg by mouth daily 02/07/2022 2 famotidine (PEPCID) 40 mg tablet Take 1 tablet (40 mg total) by mouth nightly 03/28/2020 3 fluocinonide (LIDEX) 0.05 % external solution 11/17/2020 02 2 ketoconazole (NIZORAL) 2 % shampoo USE THREE TIMES A WEEK DIRECTED 11/17/2020 2 lansoprazole (PREVACID) 30 mg capsule Take 30 mg by mouth 12/19/2021 2 meloxicam (MOBIC) 15 mg tabletIndications :Chronic bilateral low back pain without sciatica Take 1 tablet (15 mg total) by mouth daily 30 tablet 5 12/05/2021 11/28/202 2 methotrexate 2.5 mg tablet Take 6 tablets (15 mg total) by mouth once a week saturday02/02/2020 3 SUMAtriptan (IMITREX) 100 mg tabletIndications :Migraine Take one tabet po q2h prn as soon as feel headache is coming. No more than 2 tablets in 24 hours. 9 tablet 3 08/03/2021 2 tamsulosin (FLOMAX) 0.4 mg extended release capsuleIndication s:benign prostatic hyperplasia with lower urinary tract sx Take 0.4 mg by mouth every morning 2 tiZANidine (ZANAFLEX) 4 mg tabletIndications :Muscle Spasm Take 4 mg by mouth every 6 (six) hours as needed 03/22/2020 2 topiramate (TOPAMAX) 50 mg tabletIndications :Chronic migraine without aura without status migrainosus, not intractable Take half tablet (25 mg) po twice a day for one week, then one tablet po twice a day 60 tablet 3 08/03/2021 2 UNABLE TO FIND Take 1 each by mouth nightly as needed THC gummie-25mg 4 documented as of this encounter Ordered Prescriptions Prescription Sig Dispense Quantity Refills Last Filled Start Date End Date oxyCODONE-acetamin ophen (PERCOCET) 5-325 mg per tabletIndications: Pain Take 1 tablet by mouth daily as needed for pain for up to 7 days 7 tablet 04/06/2022 2 methylPREDNISolone (MEDROL DOSEPACK) 4 mg Dosepack Take as directed on package 1 packet 04/06/2022 2 documented in this encounter Discharge Disposition Disposition Code Departure Means Destination Discharge to home or self care documented in this encounter Progress Notes * Ezequiel Shelton MD - 04/06/2022 1:30 PM CDT Patient Name: Samuel Sanchez : 1945 Today's Date: 04/06/2022 PCP: Viraj Romeo PA Referring: Ezequiel Shelton MD Chief Complaint Patient presents with Follow-up Pain HPI Samuel Sanchez is a 76 y.o. year old male seen in consultation today for Ezequiel Shelton MD. He returns to the [facility] with a report of 0% relief of his pain with the use of meloxicam. Since his last visit he was seen and evaluated by Dr. Gomez who did not think he was asurgical candidate, and recommended continued pain management. He again presents with a Chief Complaint of bilateral low back pain. He states his right side is worse than his left. He denies any leg.His pain began 25 years ago. Since that time his pain has gradually been worsening particularly in the last 2 years. Initiating Events include none that he can recall. He feels his pain is worsening due to the fact he has to care for his that includes lifting her. The pain is described as an intermittent dull ache. It rates Currently 2/10 on the numeric pain scale. At Worst 10/10 Provocativemaneuvers include sitting, standing, activity, and lifting., At Best 0/10 Alleviating maneuvers include rest, and changing position. Pain impacts his activities of daily living by limiting his ability to care for his , includinglifting her. With regard to additional symptoms the patient denies any leg Weakness, He denies any leg Numbness. He denies bowel or bladder incontinence. He denies Insomnia. Therapeutic modalities attempted to date include Zanaflex provides him no relief, Percocet 5/325 provided him no relief, tramadol provides him no relief, right L4-L5 and L5-S1 facet joint steroid injections provided him no relief, lumbar epidural steroid injection L5-S1 provided him no relief, and physical therapy provided him no relief. Pain Score: 2 Pain Location: Back (Lumbar) Pain Radiating Towards: occ to winston ant thigh Pain Descriptors: Aching Pain Frequency: Intermittent Pain Onset: Ongoing Clinical Progression: Gradually worsening Effect of Pain on Daily Activities: able to complete ADLs, rests when needed Allergies Allergen Reactions Perfume Swelling, Cough and Shortness of breath Mold Unknown Cat Dander Eye irritation Hydrocodone Itching Vicodin [Hydrocodone-Acetaminophen] Itching Past Medical History: Diagnosis Date Allergic rhinitis [...] MEDICAL hemorroids; Comments: Had done at [facility]pat[facility] clinic in [place] HX OTHER MEDICAL bladder infection HX OTHER MEDICAL kidney stone Low back pain Malignant neoplasm of 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 Migraine Rheumatoid arthritis (HCC) Past Surgical History: Procedure Laterality Date BICEPS TENODESIS Left 1969' COLONOSCOPY 03/14/2020 EAR SURGERY Left repair perforated eardrum LARYNGOSCOPY Right 01/09/2019 Direct laryngoscopy with biopsy LARYNGOSCOPY Right 02/16/2019 Suspension microlaryngoscopy with KTP laser photoablation Right vocal fold lesion LITHOTRIPSY - [id number] 5 or 6 times ORCHIECTOMY Right OTHER SURGICAL HISTORY 04/18/2020 Suspension microlaryngoscopy with KTP laser treatment PROSTATE SURGERY Pinched Prostate: surgically repaired ROTATOR CUFF REPAIR Right and removal of bone spurs SHOULDER SURGERY Right bone spurs VASECTOMY Social History Tobacco Use Smoking status: Former Packs/day: 1.50 Years: 30.00 Pack years: 45.00 Types: Cigarettes Start date: 1958 Quit date: 1995 Years since quittin.8 Smokeless tobacco: Never Substance and Sexual Activity Drug use: Yes Types: Medical marijuana Sexual activity: Defer Alcohol Use: Not on file Family History Adopted: Yes Problem Relation Age of Onset Other Other adopted Other Other adopted Anesthesia problems Neg Hx HOME MEDICATIONS : biotin 10,000 mcg capsule cetirizine 10 mg capsule famotidine (PEPCID) 40 mg tablet fluocinonide (LIDEX) 0.05 % external solution ketoconazole (NIZORAL) 2 % shampoo meloxicam (MOBIC) 15 mg tablet methotrexate 2.5 mg tablet methylPREDNISolone (MEDROL DOSEPACK) 4 mg Dosepack multivitamin capsule oxyCODONE-acetaminophen (PERCOCET) 5-325 mg per tablet SUMAtriptan (IMITREX) 100 mg tablet tamsulosin (FLOMAX) 0.4 mg extended release capsule tiZANidine (ZANAFLEX) 4 mg tablet topiramate (TOPAMAX) 50 mg tablet UNABLE TO FIND vit A/vit C/vit E/zinc/copper (PRESERVISION AREDS ORAL) oxyCODONE-acetaminophen (PERCOCET) 5-325 mg per tablet Review of Systems Review of Systems Constitutional: Negative for activity change and fatigue. HENT: Negative for congestion, ear pain, sinus pressure, sinus pain and trouble swallowing. Eyes: Negative for pain. Respiratory: Negative for shortness of breath and wheezing. Cardiovascular: Negative for chest pain. Gastrointestinal: Negative for abdominal pain, nausea, rectal pain and vomiting. Endocrine: Negative for cold intolerance and heat intolerance. Genitourinary: Negative for flank pain. Musculoskeletal: Positive for back pain (Bilateral low back pain). Negative for arthralgias, myalgias, neck pain and neck stiffness. Skin: Negative for rash. Allergic/Immunologic: Negative for immunocompromised state. Neurological: Negative for seizures, weakness, numbness and headaches. Hematological: Does not bruise/bleed easily. Psychiatric/Behavioral: Negative for sleep disturbance. The patient is not nervous/anxious. Physical Exam Vitals: 04/06/22 1336 BP: 119/80 BP Location: Right arm Patient Position: Sitting Pulse: 65 Resp: 16 SpO2: 100% There is no height or weight on file to calculate BMI. Physical Exam Vitals and nursing note reviewed. Constitutional: General: He is awake. Appearance: Normal appearance. He is well-developed and well-groomed. HENT: Head: Normocephalic and atraumatic. Nose: Nose normal. Eyes: Pupils: Pupils are equal, round, and reactive to light. Neck: Trachea: No tracheal deviation. Cardiovascular: Rate and Rhythm: Normal rate and regular rhythm. Pulmonary: Effort: Pulmonary effort is normal. Breath sounds: Normal breath sounds. Musculoskeletal: General: Normal range of motion. Cervical back: Normal range of motion and neck supple. Skin: General: Skin is warm and dry. Neurological: Mental Status: He is alert and oriented to person, place, and time. Psychiatric: Attention and Perception: Attention and perception normal. Mood and Affect: Mood and affect normal. Speech: Speech normal. Behavior: Behavior normal. Behavior is cooperative. Thought Content: Thought content normal. Cognition and Memory: Cognition and memory normal. Judgment: Judgment normal. Gait is within normal limits Toe Stand is bilaterally reduced Heel Stand is bilaterally reduced Low Back: Inspection is clean, dry, and intact; no lesions are noted. No scars are noted. Palpation produces no pain Percussion produces no pain Lumbar Flexion 70 degrees produces no pain Extension 30 degrees produces concordant low back pain Right Lateral Flexion 30 degrees produces concordant low back pain Left Lateral Flexion 30 degrees produces concordant low back pain Lower Extremity: Motor bilaterally 5/5 equal and intact Sensory bilaterally equal and intact DTR's Patellar Right 0/4 Left 0/4 Achilles Right 0/4 Left 0/4 Straight leg Raise Right 90 degrees produces no pain DFF no change Left 90 degrees produces no pain DFF no change Gaenslen's Test Right negative produces no pain Left negative produces no pain FABERs Test Right negative produces no pain Left negative produces no pain Imaging: I reviewed a October 2021 MRI of his lumbar spine that demonstrated multilevel lumbar degenerative discdisease, and lumbar facet arthropathy. I reviewed an March 2020 MRI of his lumbar spine that demonstrated multilevel lumbar degenerativedisc disease, and lumbar facet arthropathy. Review of Data: Checked the [employer] TABLEAU ARCHITECT sheet and it was consistent with our meds. UDT results: A sample was not obtained The patient was not given a prescription for intranasal Narcan for the management of opioid inducedrespiratory depression or excess sedation. I reviewed the [employer] Prescription Monitoring Program printout and it was consistent and appropriate. The patient denies the use of Tobacco The patient denies a diagnosis of hypertension. Assessment: Based on the history, physical exam, and MRI of his lumbar spine my impression is the patient has a primary diagnosis of lumbago, lumbar degenerative disc disease, and lumbar facet arthropathy. I had an in-depth conversation with Mr. Sanchez and reviewed with him the attempted past aline reyes, and Dr. Gomez impression that he is not a surgical candidate. I also reviewed with him the fact he is not responded to most medications. Following our conversation I discussed 3 treatment options 1 would be to trial different opioids including oxycodone, a 2nd treatment option would be aspinal cord stimulator trial, and a final treatment option would be a intrathecal opioid trial. I discussed all 3 options, and he states that he is extremely hesitant about opiates however he is willing to trial Percocet 5/325 on a p.r.n. basis to see if this may allow him to continue to care for his . Between the spinal cord stimulator trial, and the intrathecal opiate trial again is hesitant about receiving opiates and wishes to consider the spinal cord stimulator trial. Therefore I provided him information and he will review this and consider a spinal cord stimulator trial. I explainedto him that the approval process from insurance is quite extensive and would require psychological evaluation. He denies any questions regard above-mentioned plan, agrees and will notify the [facility] with report of benefit from the Percocet 5/325, and whether he wishes to proceed with the spinal cord stimulator trial. I explained if he wishes to proceed with the intrathecal opiate trial I would refer him to my colleague Dr. Bennett for an evaluation. Problem List Musculoskeletal and Injuries Chronic bilateral low back pain without sciatica - Primary Relevant Medications oxyCODONE-acetaminophen (PERCOCET) 5-325 mg per tablet Neuro DDD (degenerative disc disease), lumbar Lumbar facet arthropathy Plan Orders Placed This Encounter Procedures Ambulatory referral to Pain Management Standing Status: Standing Number of Occurrences: 1 Referral Priority: Routine Referral Type: Consultation Referral Reason: Specialty Services Required Referral Location: [facility] Requested Specialty: Pain Management Number of Visits Requested: 99 I will Percocet 5/325, and I offered him information about a spinal cord stimulator trial. He will notify our office how he wishes to proceed. T No follow-ups on file. Thank you for allowing me to participate in the care of this pleasant patient. Ezequiel Shelton MD 04/06/2022 documented in this encounter Plan of Treatment Scheduled Referrals Name Type Priority Associated Diagnoses Order Schedule Ambulatory referral to Pain Management Outpatient Referral Routine Vertebrogenic low back pain Once for 1 Occurrences starting 04/06/2022 until 04/06/2022 documented as of this encounter Goals Goal [...] on stairs Contact your local community or [facility] for information on exercise, fall prevention programs, or options for improving home safety. documented as of this encounter Visit Diagnoses Diagnosis Chronic bilateral low back pain without sciatica- Primary DDD (degenerative disc disease), lumbar Degeneration of lumbar or lumbosacral intervertebral disc Lumbar facet arthropathy Spondylosis of unspecified site without mention of myelopathy Vertebrogenic low back pain documented in this encounter Discontinued Medications Medication Sig Discontinue Reason Start Date End Da te oxyCODONE-acetaminophen (PERCOCET) 5-325 mg per tabletIndications:Pain Take 1 tablet by mouth every 4 (four) hours as needed for pain 10/13/2020 04/06/2022 documented as of this encounter Care Teams Vehicle Dynamics Engineer Relationship Specialty [place] [address] [facility] [address] [place] [address] Rheumatology 02/21/17 Lashay Downs, RN Registered Nurse Pain Management 06/17/17 Duke Do, RN Registered Nurse 09/09/17 Ngozi Petty MD Radiation Oncologist Radiation Oncology 02/05/19 Jose Roberto Marx MD Referring Physician Otolaryngology 02/05/19 documented as of this encounter
--- OUTSIDE RECORDS SUMMARY | 2024-06-14 16:48 | XMS_ITS | Encounter Summary ---
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) Viraj Romeo PA [address] [place] [address] Phone: tel: fax: [facility] (All Locations) Referral ID Status Reason Start Date Expiration Date V isits Requested Visits Authorized [id number] Closed Specialty Services Required 04/05/2021 06/16/2021 4 4 Question Answer Please select the performing region: [facility] (All Locations) [167] # of visits: 1 Reason for Visit * Reason Comments vocal cord check * Consultation (Routine) - Closed Specialty Diagnoses / Procedures Referred By Contac t Referred To Contact Otolaryngology Diagnoses 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) Viraj Romeo PA [address] [place] [address] Phone: tel: fax: [facility] (All Locations) Referral ID Status Reason Start Date Expiration Date V isits Requested Visits Authorized [id number] Closed Specialty Services Required 04/05/2021 06/16/2021 4 4 Encounter Details Date Type Department Care Team (Late st Contact Info) Description 04/18/2021 10:20 AM CERTIFIED MEDICAL ASST Office Visit [facility] ENT [address] [place] [address] Nathanael Valdez MD [address] [place] [address] 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 vocal cord check Subjective Samuel Sanchez is a 75 y.o. 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 He is doing well and has no new issues. He denies dysphagia, odynophagia, referred otalgia, or hemoptysis. However he does report weight loss of 40 pounds over the last year that is unintentional. Denies decreased appetite although he is currently under increased stress. Noother concerning symptoms including bloody stool, change in stool, pain; he is a former smoker. Hasnot seen his PCP yet. Last colonoscopy was 5 years ago during which there were multiple polyps noted, he is due for a repeat colonoscopy. Oncology History Squamous cell carcinoma of larynx (CMS/HCC) ([facility]) 01/30/2019 Initial Diagnosis Squamous cell carcinoma of larynx (CMS/HCC) Outcomes: GFI: 0 VHI-10: 0 VCI: 0 RSI: 6 Objective Physical Exam Constitutional: He is oriented [...] of larynx (CMS/HCC) No evidence of disease today. However he does report significant unintentional weight loss. Recommend colonoscopy and urgent follow-up with PCP for further workup of this. Follow-up in 4 months or sooner if concerns. Orders Placed This Encounter Procedures ??? Ambulatory referral to ENT Disposition: No follow-ups on file. Nathanael Valdez MD, FACS Regional Program Manager [facility] Division of Laryngology Department of Otolaryngology--Head & Neck Surgery Portions of this note were dictated using M*Modal Fluency Direct. Yacht Rigger variances may occur. I have seen and examined the patient. I agree with the findings and plan of care as documented in the resident/fellow's note. 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 However he does report significant unintentional weight loss. Recommend colonoscopy and urgent follow-up with PCP for further workup of this. Follow-up in 4 months or sooner if concerns. 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
--- OUTSIDE RECORDS SUMMARY | 2024-06-14 16:48 | XMS_ITS | Encounter Summary ---
Author Organization [facility] Healthcare Address [address] [place] [address] Care Team Providers Care Cryptographer Name Role Phone Criss Blanco MD Unavailable Lashay Downs RN Unavailable Unavailab Duke Goodwin RN Unavailable UnavailNgozi Husain MD Unavailable [phone] Jose Roberto Marx MD Unavailable [phone] Encounter Details Date Type Department Care Team (Late st Contact Info) Description 10/13/2020 12:10 PM CDT Anesthesia Event [facility] Operating Room [address] [place] [id number] Alisa Wilson MD [address] [facility] [address] [place] [address] Kavya Carson NP [address] [id number] [place] [address] Anesthesia Record Procedure Summary Procedure Name Responsible Anesthesiologist Anesthesia Start Time Anesthesia Stop Time LASER KTP Alisa Wilson MD 10/13/20 1210 1353 Events Date Time Event Comment 10/13/2020 1117 In Preop 1131 1210 An Start 1214 In Room 1215 An Start Data 1225 An Induction The patient was reevaluated immediately before moderate or deep sedation use and before anesthesia induction. 1226 An Intubation 1240 Proc Start 1251 Anesthesia Ready 1325 Proc Fin 1339 An Extubation 1339 an stop data 1344 Out of Room 1353 Handoff to RN I completed my handoff [...] disposition at the time of handoff: PACU 1353 An Stop Meds Name Total lidocaine (cardiac) syringe 2 % 100 mg propofol 350 mg fentaNYL 100 mcg succinylcholine 100 mg rocuronium 30 mg ondansetron PF (ZOFRAN) 2 mg/mL injectio n 4 mg dexamethasone 4 mg/ml 8 mg sugammadex 200 mg Lactated Ringer's (LR) infusion 1,000 mL * Agents Name O2% N2O O2 N2O Air Sevoflurane Inspired Sevoflurane * Blood No blood administrations on file. Lines, Drains, and Airways Type Details Placement Removal RETIRED Surgical Site 04/18/20; 1444; Bilateral; Throat; 04/30/22 04/18/20 1444 by Elizabeth Anderson RN 04/30/22 0000 by Shereen Amato RN Peripheral IV Placement Date: 10/13/20; Placement Time: 1143; Catheter Size: 20 G; Orientation: Posterior, Right; Location: Hand; Site Prep: Chlorhexidine; Technique: Anatomical landmarks; Insertion Attempts: 1; Patient Tolerance: Tolerated well; Removal Date: 05/07/22; Removal Time: 1102 10/13/20 1143 by Denise Soares, GAY 05/07/22 1102 by Margareth Flores, GAY ETT Placement Date: 10/13/20; Placement Time: 1245 (created via procedure documentation); Technique: Direct laryngoscopy; Type: Laser tube; Single Lumen Tube Size: 6 mm; Cuffed: Yes; Laryngoscope: Jorge; Blade Size: 3; Location: Oral; Insertion Attempts: 1; Placement Verification: Auscultation, Capnometry; Removal Date: 10/13/20; Removal Time: 1339 10/13/20 1245 by Eloy Johnson MD 10/13/20 1339 by Eloy Johnson MD RETIRED Surgical Site 10/13/20; 1339; Throat; 04/30/22 10/13/20 1339 by Pau Davis RN 04/30/22 0000 by Shereen Amato RN documented in this encounter Social History [...] on file Legal 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 Gender Identity Not on file Sexual Orientation Not on file 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 on file Not on natalie e documented as of this encounter OR Notes * Anesthesia Postprocedure Evaluation - Amador Padilla MD - 10/13/2020 2:41 PM CDT Patient: Samuel Sanchez Procedure Summary Date: 10/13/20 Room / Location: [facility] OR POD 5 ROOM 219 / [facility] OR POD 5 Anesthesia Start: 1210 Anesthesia Stop: 1353 Procedures: LASER KTP (N/A ) Suspension microlaryngoscopy with KTP laser treatment (Right Throat) Diagnosis: Squamous cell carcinoma of larynx (CMS/HCC) (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]) Surgeons: Nathanael Valdez MD Responsible Provider: Alisa Wilson MD Anesthesia Type: general ASA Status: 2 Anesthesia Type: general Last vitals BP 138/87 Pulse 72 Temp (!) 35.8 ??C (96.4 ??F) (Temporal) Resp 12 SpO2 96% Anesthesia Post Evaluation Patient location during evaluation: PACU Patient participation: complete - patient participated Level of consciousness: fully awake Pain score: 2 Pain management: adequate Airway patency: adequate Evidence of recall: no Anesthetic complications: no Cardiovascular status: acceptable Respiratory status: acceptable Hydration status: acceptable Pt is: normothermic Nausea/Vomiting status: none Comments: Stable and appropriate for discharge to home. Has a ride home with his daughter. No hx BETSY. Cosigned by Rossy Ramos MD at 10/13/2020 2:48 PM CDT * Anesthesia Procedure Notes - Eloy Johnson MD - 10/13/2020 12:43 PM CDT Associated Order(s): Airway Airway Patient location: OR Urgency: elective Indications for airway management: anesthesia and airway protection Difficult airway: no Emergent airway documentation: Risks and benefits discussed: yes Consent obtained: yes Consent given by: patient Airway prep: Preoxygenated: yes Patient position: sniffing Spontaneous ventilation during airway: absent Sedation level during airway: GA Final airway details: Final airway type: endotracheal airway Tube type: laser tube ETT size: 6.0 mm Cuffed: yes Technique used for successful ETT placement: direct laryngoscopy Devices/Methods used in placement: cricoid pressure and intubating stylet Insertion site: oral Blade type: Jorge Blade size: 3 Cuff inflated with: air Placement verified by: auscultation and CO2 detection Airway secured with: silk tape Number of attempts: 1 Ventilation between attempts: none * Anesthesia Preprocedure Evaluation - Alisa Wilson MD - 10/06/2020 8:49 AM CDT Images from the original note were not included. [facility] Preoperative Assessment and Planning Preoperative Evaluation Record Evaluation type/location: [facility] Planned procedure site: [facility] (Pods 2/3/5/EXCAVATOR OPERATOR) Date: 10/06/20 NOTE: This note represents a preoperative evaluation initiated via telephone interview. NO PHYSICALEXAM was performed at the time of initial assessment. A physical exam may be added to this note anddocumented below. Anesthesia Evaluation Samuel Sanchez is a 75 y.o. 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 Additional medical history inclydes GERD, Rheumatoid Arthritis and BPH. Pt being planned for Suspension microlaryngoscopy with KTP laser treatment (Right Throat) ?LASER KTP Anesthesia type: General Past Medical History Information obtained from: patient. Neurological Pertinent negatives: seizures; neuromuscular disease; CVA/stroke; TIA; CEA; ICA stenosis; dementia/mild cognitive impairment and carotid artery stent Cardiovascular Pertinent negatives: hypertension ; CAD ; MT ; CABG ; valvular heart disease; valve replacement; atrial fibrillation; arrhythmia; pacemaker/ICD; PVD; DVT/PE; negative for CHF; drug-eluting stent(s); bare metal stent(s) and coronary angioplasty Respiratory Pertinent negatives: COPD; asthma; sleep apnea (BETSY); pulmonary hypertension; no O2 use outside thehospital and non-smoker Hepatic / Heme Pertinent negatives: liver disease; history of anemia; history of thrombocytopenia and history of Mohinder positive Gastrointestinal + GERD - on daily therapy. Asymptomatic. Pertinent negatives: hiatal hernia Renal / + Nephrolithiasis (h/o kidney stones) Pertinent negatives: renal disease and dialysis Comments: H/o enlarged prostate. Musculoskeletal/Pain + Chronic pain (Hands and back) - back pain. + Osteoarthritis Pertinent negatives: chronic opioid use and previous treatment for opioid use disorder Endocrine / Other + Cancer history- current cancer. Cancer type: current - laryngeal. + Rheumatological disease (On methotrexate (takes every Saturday). F/u with Rheumatology: Dr Fuentes ) -rheumatoid arthritis. Pertinent negatives: diabetes mellitus; thyroid disease; obesity (BMI >30) and transplanted organ Functional Capacity Functional capacity: 4-6 METs Comments: Patient states that they can walk 2 miles (attempts to do daily). Climbs 3-4 flights of stairs. No SOB or CP Review of Systems + productive cough (Patient reports the last few weeks he has had a productive cough with clear phlegm which he attributes to allergies) + easy bruising + chronic pain (Hands and back) + hard of hearing (decreased hearing B; wears hearing aides occasionally) + vision loss (Uses glasses) + heartburn Pertinent negatives: wheezing; SOB; recent cold/flu; fever; chest pain; palpitations; orthopnea; pedal edema; PND; Sickle Cell disease/trait; previous transfusion; transfusion reaction; melena/hematochezia; bleeding problems; syncope; dizziness; muscle weakness; numbness/tingling; nausea; dysphagia; diarrhea; dentures/partials; chipped/loose teeth; abdominal pain; diaphoresis and no unexpected weight change PAT Summary and Plans Cardiac risk classification of planned procedure: low cardiac risk. Preoperative assessment status: complete. Additional comments: Samuel Sanchez is a 73 y.o. male who is being evaluated prior to undergoing a low cardiac risk surgery. Revised Cardiac Risk Index factors are (none) for a total RCRI of 0 out of 6. Functional capacity is 4-6 METs. Obstructive sleep apnea (BETSY) screening status is unknown d/t TPAP. Blood bank needs for day of procedure: No type and screen needed Pending labs/tests include: No labs pending. This assessment was performed via telephone. Therefore the physical exam has been deferred to the day of surgery team. The patient was provided with preoperative instructions for their medications. The patient was instructed to shower/bathe the night prior and the morning of the planned procedure using an antibacterial soap. Patient instructions were provided by telephone;preoperative instructions mailed Via USPS mail. Patient verbalized understanding of preoperative plan. Patient's COVID19 status is: Unexposed. The patient currently has no concerning symptoms of COVID19. . Plan for pre-procedure COVID19 testing: Surgery date greater than 4 days from today. Request placed for pre-procedure COVID19 testing to be performed on 10/10 @ [facility] will place the order for testing. Result to be reviewed by surgeon's office. . TPAP process complete. Preoperative evaluation performed by Kavya Carson NP on 10/06/20 at 09:06 AM. . Patient Active Problem List Diagnosis ??? 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 Headache ??? 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 Discogenic low back pain ??? Shortness of breath ??? Atypical migraine ??? Calculus of kidney ??? Dyspepsia ??? Squamous cell carcinoma of larynx (CMS/HCC) ??? Dysphonia Past Medical History: Diagnosis Date ??? Allergic rhinitis ??? Arthritis arthritis ??? Calculus of kidney Nephrolithiasis ??? Cancer of vocal cord (CMS/HCC) ??? Depression ??? Gastric reflux ??? Gastroesophageal reflux disease acid reflux ??? History of multiple allergies allergies ??? [...] OTHER MEDICAL hemorroids; Comments: Had done at [facility] in [place] ??? HX OTHER MEDICAL bladder infection ??? HX OTHER MEDICAL kidney stone ??? Low back pain ??? Malignant neoplasm of prostate (CMS/HCC) 1999 prostate ??? Rheumatoid arthritis (CMS/HCC) Past Surgical History: Procedure Laterality Date ??? BICEPS TENODESIS Left 1969' ??? EAR SURGERY Left repair perforated eardrum ??? LARYNGOSCOPY Right 01/09/2019 Direct laryngoscopy with biopsy ??? LARYNGOSCOPY Right 02/16/2019 Suspension microlaryngoscopy with KTP laser photoablation Right vocal fold lesion ??? LITHOTRIPSY s - [id number] 5 or 6 times ??? ORCHIECTOMY Right 1970's ??? PROSTATE SURGERY 1970's Pinched Prostate: surgically repaired ??? ROTATOR CUFF REPAIR Right 1969's and removal of bone spurs ??? SHOULDER SURGERY Right bone spurs ??? VASECTOMY Allergies Allergen Reactions ??? Perfume Swelling, Cough and Shortness of breath ??? Vicodin [Hydrocodone-Acetaminophen] Itching Med List Status: Nurse Complete Set By: Kierra Pedraza RN at 10/05/2020 3:18 PM Taking? Last Dose Start Date End Date Provider biotin 5,000 mcg tablet,disintegrating 10/05/2020 -- -- Emmie Reynoso MD cetirizine 10 mg capsule 10/05/2020 -- -- Emmie Reynoso MD famotidine (PEPCID) 40 mg tablet 10/04/2020 03/28/20 -- Emmie Reynoso MD methotrexate 2.5 mg tablet Past Week 02/02/20 -- Emmie Reynoso MD multivitamin capsule 10/05/2020 -- -- Emmie Reynoso MD omeprazole (PriLOSEC) 40 mg capsule 10/04/2020 03/22/20 -- Emmie Reynoso MD tamsulosin (FLOMAX) 0.4 mg extended release capsule 10/05/2020 -- -- Emmie Reynoso MD tiZANidine (ZANAFLEX) 4 mg tablet Past Week 03/22/20 -- Emmie Reynoso MD Notes: One tablet at night, partial relief, no SE, LD last night. UNABLE TO FIND 10/04/2020 -- -- Emmie Reynoso MD vit A/vit C/vit E/zinc/copper (PRESERVISION AREDS ORAL) 10/05/2020 -- -- Emmie Reynoso MD No current facility-administered medications for this encounter. Current Outpatient Medications: ??? biotin 5,000 mcg tablet,disintegrating ??? cetirizine 10 mg capsule ??? famotidine (PEPCID) 40 mg tablet ??? methotrexate 2.5 mg tablet ??? multivitamin capsule ??? omeprazole (PriLOSEC) 40 mg capsule ??? tamsulosin (FLOMAX) 0.4 mg extended release capsule ??? tiZANidine (ZANAFLEX) 4 mg tablet ??? UNABLE TO FIND ??? vit A/vit C/vit E/zinc/copper (PRESERVISION AREDS ORAL) Social History Tobacco Use Smoking Status Former Smoker ??? Packs/day: 1.50 ??? Years: 30.00 ??? Pack years: 45.00 ??? Types: Cigarettes ??? Start date: 1958 ??? Quit date: 1995 ??? Years since quittin.3 Smokeless Tobacco Never Used Substance and Sexual Activity Alcohol Use Yes ??? Alcohol/week: 3.0 standard drinks ??? Types: 3 Standard drinks or equivalent per week Substance and Sexual Activity Drug Use Not Currently Family History Adopted: Yes Problem Relation Age of Onset ??? Other Other adopted ??? Other Other adopted ??? Anesthesia problems Neg Hx There were no vitals filed for this visit. Relevant diagnostics: ECG(s): 06/20/2020 EKG: Vent Rate: 82 bpm RR Interval: 731 msec [place] Interval: 175 msec QRS Duration: 95 msec QT Interval: 384 msec QTC Interval: 422 msec P-R-T [place]: 68 - 3 - 68 degrees ?? SINUS RHYTHM WITH OCCASIONAL VENTRICULAR PREMATURE COMPLEXES POSSIBLE LEFT ATRIAL ENLARGEMENT ??[-0.1mV P WAVE IN V1/V2] BORDERLINE ECG Compared to prior EKG, rate is now faster and PVCs are new. Echocardiogram(s): N/A Stress test(s): N/A Cardiac catheterization(s): N/A PFT(s): N/A Vascular studies: N/A Other: N/A PT: No results found for requested labs [...] Marcelle index score: 100 DOS Physical Exam Attestation: I endorse the findings of the anesthesia pre-evaluation assessment dated: 10/06/2020. Airway Exam: Mallampati: III Cervical ROM: FROM Cardiovascular Exam: Rate: regular Pulmonary Exam: LCTA EENT Exam: trachea midline Current state: Patient's current state is cooperative. Anesthesia Plan ASA 2 Planned anesthesia: General Team communication plan: oral ET tube Informed Consent: Anesthesia plan and risks discussed [...] Pain Care Plan Chronic Care Management No Svetalna Clay RN Note: Problem: Chronic Pain Goals: [...] on stairs Contact your local community or [facility] for information on exercise, fall prevention programs, or options for improving home safety. documented as of this encounter Procedures Procedure Name Priority Date/Time Associated Diagnosis Comments ANESTHESIA INTUBATION Routine 10/13/2020 12:43 PM CDT documented in this encounter Results * Airway (10/13/2020 12:43 PM CDT) Narrative Eloy Johnson MD - 10/13/2020 12:43 PM CDT Eloy Johnson MD ? 10/13/2020 12:45 PM Airway Patient location: OR Urgency: elective Indications for airway management: anesthesia and airway protection Difficult airway: no Emergent airway documentation: Risks and benefits discussed: yes Consent obtained: yes Consent given by: patient Airway prep: Preoxygenated: yes Patient position: sniffing Spontaneous ventilation during airway: absent Sedation level during airway: GA Final airway details: Final airway type: endotracheal airway Tube type: laser tube ETT size: 6.0 mm Cuffed: yes Technique used for successful ETT placement: direct laryngoscopy Devices/Methods used in placement: cricoid pressure and intubating stylet Insertion site: oral Blade type: Jorge Blade size: 3 Cuff inflated with: air Placement verified by: auscultation and CO2 detection Airway secured with: silk tape Number of attempts: 1 Ventilation between attempts: none Alisa Wilson MD ANESTHESIA ORDERABLES Mariaa rosado Result documented in this encounter Visit Diagnoses Not on filedocumented in this encounter Administered Medications Inactive Administered Medications - up to 3 most recent administrations Medication Order MAR Action Action Date Dose Rate Site dexAMETHasone (DECADRON) 4 mg/mL injection intravenous, Administer over 2 Minutes, As needed, Starting on Manasa 10/13/20 at 1230, Anesthesia Intra-op Given 10/13/2020 12:30 PM CDT 8 mg fentaNYL (SUBLIMAZE) preservative free injection intravenous, As needed, Starting on Manasa 10/13/20 at 1218, Anesthesia Intra-op Given 10/13/2020 12:25 PM CDT 100 mcg Lactated Ringer's (LR) infusion 30 mL/hr, intravenous, Continuous, Starting on Manasa 10/13/20 at 1200, Pre-Op New Bag 10/13/2020 12:18 PM CDT lidocaine (cardiac) (XYLOCAINE) preservative free injection intravenous, As needed, Starting on Manasa 10/13/20 at 1218, Anesthesia Intra-op, Indications: Ventricular ArrhythmiasIndications:Ventricul ar Arrhythmias Given 10/13/2020 12:25 PM CDT 100 mg ondansetron (ZOFRAN) injection intravenous, Administer over 2 Minutes, As needed, Starting on Manasa 10/13/20 at 1315, Anesthesia Intra-op Given 10/13/2020 1:15 PM CDT 4 mg propofoL (DIPRIVAN) 10 mg/mL IV intravenous, As needed, Starting on Manasa 10/13/20 at 1218, Anesthesia Intra-op Given 10/13/2020 12:56 PM CDT 50 mg Given 10/13/2020 12:49 PM CDT 50 mg Given 10/13/2020 12:44 PM CDT 50 mg rocuronium (ZEMURON) injection intravenous, As needed, Starting on Manasa 10/13/20 at 1232, Anesthesia Intra-op Given 10/13/2020 12:32 PM CDT 30 mg succinylcholine (ANECTINE) injection intravenous, As needed, Starting on Manasa 10/13/20 at 1218, Anesthesia Intra-op Given 10/13/2020 12:25 PM CDT 100 mg sugammadex (BRIDION) 100 mg/mL intravenous solution intravenous, As needed, Starting on Manasa 10/13/20 at 1325, Anesthesia Intra-op Given 10/13/2020 1:25 PM CDT 200 mg documented in this encounter Care Teams Cryptographer Relationship Specialty [place] [id number] [address] Rheumatology 02/21/17 Lashay Downs, RN Registered Nurse Pain Management 06/17/17 Duke Do, GAY Registered Nurse 09/09/17 Ngozi Petty MD Radiation Oncologist Radiation Oncology 02/05/19 Jose Roberto Marx MD Referring Physician Otolaryngology 02/05/19 documented as of this encounter
--- OUTSIDE RECORDS SUMMARY | 2024-06-14 16:48 | XMS_ITS | Encounter Summary ---
Author Organization [facility] Healthcare Address [address] [place] [address] Care Team Providers Care Director Of Operations For Therapy Name Role Phone Criss Blanco MD Unavailable Lashay Downs RN Unavailable Unavailab Duke Goodwin RN Unavailable UnavailNgozi Husain MD Unavailable [phone] Jose Roberto Marx MD Unavailable [phone] Reason for Referral * Diagnostic Imaging (Routine) - Closed Specialty Diagnoses / Procedures Referred By Contac t Referred To Contact Diagnoses Pain Procedures XR Hand Left 3 or More Views Alissa Fuentes MD Phone: tel: fax: [facility] [address] [place] [address] Referral ID Status Reason Start Date Expiration Date Visits Re quested Visits Authorized [id number] Closed 08/09/2021 09/08/2022 1 1 AUTOMATION DEVELOPER Reason for Visit * Diagnostic Imaging (Routine) - Closed Specialty Diagnoses / Procedures Referred By Contac t Referred To Contact Diagnoses Pain Procedures XR Hand Left 3 or More Views Alissa Fuentes MD Phone: tel: fax: [place] [address] [place] [address] Referral ID Status Reason Start Date Expiration Date Visits Re quested Visits Authorized [id number] Closed 08/09/2021 09/08/2022 1 1 Encounter Details Date Type Department Care Team (Latest Contact Info) Description 08/09/2021 1:40 PM QA AUTOMATION DEVELOPER - 08/09/2021 11:59 PM QA AUTOMATION DEVELOPER Hospital Encounter [facility] [address] [place] [address] Pain Discharge Disposition: Discharge to home or self [...] on file Legal Sex Male 12:56 AM QA AUTOMATION DEVELOPER Gender Identity Not on file Sexual Orientation [...] THREE TIMES A WEEK DIRECTED 11/17/2020 2 methotrexate 2.5 mg tablet Take 6 tablets (15 mg total) by mouth once a week saturday02/02/2020 3 oxyCODONE-acetami nophen (PERCOCET) 5-325 mg per tabletIndications :Pain Take 1 tablet by mouth every 4 (four) hours as needed for pain 15 tablet 10/13/2020 2 SUMAtriptan (IMITREX) 100 mg tabletIndications :Migraine Take [...] on stairs Contact your local community or [facility] for information on exercise, fall prevention programs, or options for improving home safety. documented as of this encounter Procedures Procedure Name Priority Date/Time Associated Diagnosis Comments XR HAND LEFT 3 OR MORE VIEWS Schedule Routine, Read Routine (OP Routine) 08/09/2021 2:02 PM QA AUTOMATION DEVELOPER Pain documented in this encounter Results * XR Hand Left 3 or More Views (08/09/2021 2:02 PM QA AUTOMATION DEVELOPER) Anatomical Region Laterality Modality Upper Extremities, Hand Left Computed Radiography 08/09/2021 2:13 PM QA AUTOMATION DEVELOPER Impressions 08/09/2021 2:13 PM QA AUTOMATION DEVELOPER 1. ??Healed/nearly healed right scaphoid waist fracture with a slightly sclerotic appearance of the proximal scaphoid. ??If there is clinical concern for osteonecrosis, MRI is recommended. 2. ??Slight left scapholunate interval widening which can be seen with scapholunate ligament insufficiency. 3. 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 Electronically signed by: José Miguel Christianson M.D. Narrative 08/09/2021 2:13 PM QA AUTOMATION DEVELOPER EXAMINATION: XR HAND RIGHT 3 OR MORE VIEWS, XR HAND LEFT 3 OR MORE VIEWS HISTORY: Bilateral hand pain FINDINGS: Right hand: 3 views of the right hand are submitted for interpretation with comparison dated 02/09/2021. ??There is a nearly healed/healed nondisplaced fracture of the mid scaphoid waist. ??There is a slightly sclerotic appearance of the proximal portion of the scaphoid. ??No other fractures are identified. ??There is multifocal mild to moderate distal radioulnar, radiocarpal, triscaphe, base of thumb, thumb metacarpal phalangeal and interphalangeal joint osteoarthritis. Left hand: There is minimal widening of the scapholunate interval. There is mild to moderate multifocal osteoarthritis of the distal radioulnar joint, triscaphe, base of thumb, thumb metacarpal phalangeal and interphalangeal joints. ??There are no fractures. Alignment is normal. ??There is a possible old triquetral fracture. Procedure Note José Miguel Christianson MD - 08/09/2021 EXAMINATION: XR HAND RIGHT 3 OR MORE VIEWS, XR HAND LEFT 3 OR MORE VIEWS HISTORY: Bilateral hand pain FINDINGS: Right hand: 3 views of the right hand are submitted for interpretation with comparison dated 02/09/2021. There is a nearly healed/healed nondisplaced fracture of the mid scaphoid waist. There is a slightly sclerotic appearance of the proximal portion of the scaphoid. No other fractures are identified. There is multifocal mild to moderate distal radioulnar, radiocarpal, triscaphe, base of thumb, thumb metacarpal phalangeal and interphalangeal joint osteoarthritis. Left hand: There is minimal widening of the scapholunate interval. There is mild to moderate multifocal osteoarthritis of the distal radioulnar joint, triscaphe, base of thumb, thumb metacarpal phalangeal and interphalangeal joints. There are no fractures. Alignment is normal. There is a possible old triquetral fracture. IMPRESSION: 1. Healed/nearly healed right scaphoid waist fracture with a slightly sclerotic appearance of the proximal scaphoid. If there is clinical concern for osteonecrosis, MRI is recommended. 2. Slight left scapholunate interval widening which can be seen with scapholunate ligament insufficiency. 3. 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 Electronically signed by: José Miguel Christianson M.D. Alissa Fuentes MD IMG XR PROCEDURES Final Result documented in this encounter Visit Diagnoses Diagnosis Pain Generalized pain documented in this encounter Care Teams Director Of Operations For Therapy Relationship Specialty [place] [id number] [facility] [address] [place] [address] Rheumatology 02/21/17 Lashay Downs, RN Registered Nurse Pain Management 06/17/17 Duke Do, RN Registered Nurse 09/09/17 Ngozi Petty MD Radiation Oncologist Radiation Oncology 02/05/19 Jose Roberto Marx MD Referring Physician Otolaryngology 02/05/19 documented as of this encounter
--- OUTSIDE RECORDS SUMMARY | 2024-06-14 16:48 | XMS_ITS | Encounter Summary ---
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 documented as of this encounter Procedures Procedure Name Priority Date/Time Associated Diagnosis Comments COVID-19 CORONAVIRUS RNA Routine 10/10/2020 9:23 AM CDT documented in this encounter Results * COVID-19 Coronavirus RNA Nasopharyngeal (10/10/2020 9:23 AM CDT) COVID-19 RNA Not Detected Not Detected ANDRE YEUNG Comment: Interpretive Data Synonyms for this test include: PCR and NAAT . ??Testing performed at [facility]. ??The [employer]plex[employer] COVID-19 Direct assay is for in vitro diagnostic use under FDA emergency use authorization only. A negative RT-PCR result does not preclude infection with COVID-19 and should not be used as the sole basis for treatment or other patient management decisions. Additional sample types have been validated according to CLIA regulations. Current Interpretative Data was last reviewed July 07, 2020. Testing performed by: [facility], [address] [place]., [address] First COVID-19 test? Unknown CERNER CH Comment:Testing performed by : [facility], [address] [place]., [address] Employeed in healthcare? Unknown CERNER CH Comment:Testing performed by : [facility], [address] [facility], [address] status? Unknown CERNER CH Comment:Testing performed by : [facility], [address] [place]., [address] Group care resident? Unknown CERNER CH Comment:Testing performed by : [facility], [address] [facility], [address] Hospitalized? Unknown CERNER CH Comment:Testing performed by : [facility], [address] [facility], [address] Is patient in ICU? Unknown CERNER CH Comment:Testing performed by : [facility], [address] [place] [address], [id number] Symptomatic as defined by CDC? Unknown CERNER CH Comment:Testing performed by : [facility], [address] [place] [address]., [id number] Nasopharyngeal 10/10/2020 9: 23 AM CDT 10/10/2020 4:11 PM CDT us Nathanael Valdez MD LAB MICROBIOLOGY - GENERA L ORDERABLES Final Result Performing Organization Address City/State/[facility] Co de Phone Number ANDRE [address] [address] Department [place] [address] documented in this encounter Visit Diagnoses Diagnosis Preop testing Unspecified pre-operative examination documented in this encounter Care Teams Lock And Dam Repairer Relationship Specialty [place] [address] [address] Rheumatology 02/21/17 Lashay Downs, RN Registered Nurse Pain Management 06/17/17 Duke Do, RN Registered Nurse 09/09/17 Ngozi Petty MD Radiation Oncologist Radiation Oncology 02/05/19 Jose Roberto Marx MD Referring Physician Otolaryngology 02/05/19 documented as of this encounter
--- OUTSIDE RECORDS SUMMARY | 2024-06-14 16:48 | XMS_ITS | Encounter Summary ---
Author Organization [facility] Address [address] [facility] [address] [place] [address] Care Team Providers Care Indoor Landscape Architect Name Role Phone Criss Blanco MD Unavailable Lashay Downs RN Unavailable Unavailab Duke Goodwin RN Unavailable UnavailNgozi Husain MD Unavailable [phone] Jose Roberto Marx MD Unavailable [phone] Encounter Details Date Type Department Care Team (Late st Contact Info) Description 08/03/2021 11:30 AM FACTORY HELPER Office Visit [facility] [address] [facility] [address] [place] [id number] Samuel Stephens MD [address] [place] [address] [address] [place] [address] Chronic migraine without aura without status migrainosus, not intractable (Primary Dx) Social History Tobacco Use Types [...] on file Legal Sex Male 12:56 AM FACTORY HELPER Gender Identity Not on file Sexual Orientation Not on file 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 Industry 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 Not on file Not on file Not on natalie e documented as of this encounter Last Filed Vital Signs Vital Sign Reading Time Taken Comments Blood Pressure 121/80 08/03/2021 11:19 AM FACTORY HELPER Pulse 82 08/03/2021 11:19 AM FACTORY HELPER Temperature - - Respiratory Rate - - Oxygen Saturation - - Inhaled Oxygen Concentration - - Weight 97.3 kg (214 lb 9.6 oz) 08/03/2021 11:19 AM FACTORY HELPER Height 185.4 cm (6' 1 ) 08/03/2021 11:19 AM FACTORY HELPER Body Mass Index 28.31 08/03/2021 11:19 AM FACTORY HELPER documented in this encounter Ordered Prescriptions Prescription Sig Dispense Quantity Refills Last Filled Start Date End Date SUMAtriptan (IMITREX) 100 mg tabletIndications: Migraine Take one tabet po q2h prn as soon as feel headache is coming. No more than 2 tablets in 24 hours. 9 tablet 3 08/03/2021 2 topiramate (TOPAMAX) 50 mg tabletIndications: Chronic migraine without aura without status migrainosus, not intractable Take half tablet (25 mg) po twice a day for one week, then one tablet po twice a day 60 tablet 3 08/03/2021 2 documented in this encounter Progress Notes * Samuel Stephens MD - 08/03/2021 11:30 AM CST Subjective/Objective Patient ID: Samuel Sanchez is a 76 y.o. male. Chief Complaint I am seeing this 76 y.o. male in consultation requested by ZOILA Steinberg for headache HPI The headache has been going on for about 6 months. Over the time, the headache has been getting worse. She has been having headache daily. The headache affected frontal region and side of head. She described the headache as throbbing pain 5-6/10 in severity Each headache lasted 4-6 hours or longer. It was associated with phonophobia, but not nausea. The headache was preceded by He tried Tylenol, Ibuprofen, Naproxen. No Asthma or COPD, no chest pain or heat attack before. He took Tizanidine once a day and percocet occasionally for back pain. Past Medical History: Diagnosis Date ??? Allergic rhinitis ??? Arthritis arthritis ??? Calculus of kidney Nephrolithiasis ??? 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 Depression ??? Gastric reflux ??? [...] OTHER MEDICAL hemorroids; Comments: Had done at [facility] [place] ??? HX OTHER MEDICAL bladder infection ??? HX OTHER MEDICAL kidney stone ??? Low back pain ??? Malignant neoplasm of prostate (CMS/HCC) ([facility]) 1998 prostate ??? Migraine ??? Rheumatoid arthritis ([facility]) Allergies Allergen Reactions ??? Perfume Swelling, Cough and Shortness of breath ??? Mold Unknown ??? Cat Dander Eye irritation ??? Hydrocodone Itching ??? Vicodin [Hydrocodone-Acetaminophen] Itching Current Outpatient Medications Medication Sig Dispense Refill ??? biotin 10,000 mcg capsule ??? cetirizine 10 mg capsule Take 1 capsule by mouth every morning ??? famotidine (PEPCID) 40 mg tablet Take 40 mg by mouth nightly ??? fluocinonide (LIDEX) 0.05 % external solution ??? ketoconazole (NIZORAL) 2 % shampoo USE THREE TIMES A WEEK DIRECTED ??? methotrexate 2.5 mg tablet Take 6 tablets by mouth once a week saturday ??? multivitamin capsule Take 1 capsule by mouth every morning ??? oxyCODONE-acetaminophen (PERCOCET) 5-325 mg per tablet Take 1 tablet by mouth every 4 (four) hours as needed for pain 15 tablet 0 ??? tamsulosin (FLOMAX) 0.4 mg extended release capsule Take 0.4 mg by mouth every morning ??? tiZANidine (ZANAFLEX) 4 mg tablet Take 4 mg by mouth every 6 (six) hours as needed ??? UNABLE TO FIND Take 1 each by mouth nightly as needed THC gummie-25mg ??? vit A/vit C/vit E/zinc/copper (PRESERVISION AREDS ORAL) Take 1 capsule by mouth 2 (two) times aday ??? SUMAtriptan (IMITREX) 100 mg tablet Take one tabet po q2h prn as soon as feel headache is coming. No more than 2 tablets in 24 hours. 9 tablet 3 ??? topiramate (TOPAMAX) 50 mg tablet Take half tablet (25 mg) po twice a day for one week, then one tablet po twice a day 60 tablet 3 No current facility-administered medications for this visit. has a current medication list which includes the following prescription(s): biotin, cetirizine, famotidine, fluocinonide, ketoconazole, methotrexate, multivitamin, oxycodone-acetaminophen, tamsulosin, tizanidine, UNABLE TO FIND, vit a/vit c/vit e/zinc/copper, sumatriptan, and topiramate. Family History Adopted: Yes Problem Relation Age of Onset ??? Other Other adopted ??? Other Other adopted ??? Anesthesia problems Neg Hx Social History Socioeconomic History ??? Marital status: Spouse name: Not on file ??? Number of children: Not on file ??? Years of education: Not on file ??? Highest education level: Not on file Occupational History ??? Occupation: [employer] Tobacco Use ??? Smoking status: Former Smoker Packs/day: 1.50 Years: 30.00 Pack years: 45.00 Types: Cigarettes Start date: 1958 Quit date: 1995 Years since quittin.1 ??? Smokeless tobacco: Never Used Vaping Use ??? Vaping Use: Never used Substance and Sexual Activity ??? Alcohol use: Yes Alcohol/week: 3.0 standard drinks Types: 3 Standard drinks or equivalent per week ??? Drug use: Yes Types: Medical marijuana ??? Sexual activity: Defer Other Topics Concern ??? ADL RESPONSE ??? ADL RESPONSE ??? ADL RESPONSE Yes Comment: 8 cups coffee soda /day ??? ADL RESPONSE ??? ADL RESPONSE ??? ADL RESPONSE ??? ADL RESPONSE ??? ADL RESPONSE ??? ADL RESPONSE ??? ADL RESPONSE ??? ADL RESPONSE ??? ADL RESPONSE ??? ADL RESPONSE ??? ADL RESPONSE Social History Narrative ??? Not on file Social Determinants of Health Financial Resource Strain: Not on file Food Insecurity: Not on file Transportation Needs: Not on file Physical Activity: Not on file Stress: Not on file Social Connections: Not on file Intimate Partner Violence: Not on file Housing Stability: Not on file BP 121/80 Pulse 82 Ht 185.4 cm (6' 1 ) Wt 97.3 kg (214 lb 9.6 oz) BMI 28.31 kg/m?? Physical Exam Mental status: alert, speech fluent, comprehension intact, follow command appropriately Cranial nerve: ALBERTO, corneal reflex present. EOMI, VFF by confrontation method. Facial sensations symmetrical. Face symmetrical. Motor: bulk normal, tone normal, pronator drift negative. Strength 5/5. No abnormal movement. Sensation: LT Normal and symmetrical. Gait: normal Assessment/Plan I am seeing this 76 y.o. male in consultation requested by ZOILA Steinberg for headache. The history is suggestive of chronic migraine headache. Diagnoses and all orders for this visit: Chronic migraine without aura without status migrainosus, not intractable (Primary) - topiramate (TOPAMAX) 50 mg tablet; Take half tablet (25 mg) po twice a day for one week, then onetablet po twice a day - SUMAtriptan (IMITREX) 100 mg tablet; Take one tabet po q2h prn as soon as feel headache is coming. No more than 2 tablets in 24 hours. Review of investigations: 1. 06/30/2019 CT of head without: No acute intracranial process. I reviewed image. 2. 11/29/2020 CMP normal. Return in about 3 months (around 11/03/2021) for with Marlene. ORY HELPER documented in this encounter Plan of Treatment [...] aura without status migrainosus, not intractable- Primary documented in this encounter Care Teams Indoor Landscape Architect Relationship Specialty [place] [address] [facility] [address] [place] [address] Rheumatology 02/21/17 Lashay Downs, GAY Registered Nurse Pain Management 06/17/17 Duke Do, RN Registered Nurse 09/09/17 Ngozi Petty MD Radiation Oncologist Radiation Oncology 02/05/19 Jose Roberto Marx MD Referring Physician Otolaryngology 02/05/19 documented as of this encounter
--- OUTSIDE RECORDS SUMMARY | 2024-06-14 16:48 | XMS_ITS | Encounter Summary ---
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) Viraj Romeo PA [address] [place] [address] Phone: tel: fax: [facility] (All Locations) Referral ID Status Reason Start Date Expiration Date V isits Requested Visits Authorized [id number] Closed Specialty Services Required 02/09/2021 03/18/2021 6 6 Question Answer Please select the performing region: [facility] (All Locations) [[id number]] # of visits: 1 Reason for Visit * Reason Comments Follow-up * Consultation (Routine) - Closed Specialty Diagnoses / Procedures Referred By Contac t Referred To Contact Otolaryngology Diagnoses 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) Viraj Romeo PA [address] [place] [address] Phone: tel: fax: [facility] (All Locations) Referral ID Status Reason Start Date Expiration Date V isits Requested Visits Authorized [id number] Closed Specialty Services Required 02/09/2021 03/18/2021 6 6 Encounter Details Date Type Department Care Team (Late st Contact Info) Description 02/21/2021 10:20 AM CDT Office Visit [facility] [address] [facility] [address] [place] [address] Nathanael Valdez MD [address] [place] [address] 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 Follow-up Subjective Samuel Sanchez is a 75 y.o. 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 He is doing well and has no new issues. He denies dysphagia, odynophagia, referred otalgia, or hemoptysis. Oncology History Squamous cell carcinoma of larynx (CMS/HCC) ([facility]) 01/30/2019 Initial Diagnosis Squamous cell carcinoma [...] disease on examination today. Continue routine surveillance. Orders Placed This Encounter Procedures ??? Ambulatory referral to ENT Disposition: Return in about 8 weeks (around 04/18/2021). Nathanael Valdez MD, FACS Tester Operator Helper [facility] Division of Laryngology Department of Otolaryngology--Head & Neck Surgery Portions of this note were dictated using M*Modal Fluency Direct. Correctional Classification Counselor variances may occur. 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 Continue routine surveillance. 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
--- OUTSIDE RECORDS SUMMARY | 2024-06-14 16:48 | XMS_ITS | Encounter Summary ---
Author Organization [facility] Healthcare Address [address] [place] [address] Care Team Providers Care Insulator Apprentice Name Role Phone Criss Blanco MD Unavailable Lashay Downs RN Unavailable Unavailab Duke Goodwin RN Unavailable UnavailNgozi Husain MD Unavailable [phone] Jose Roberto Marx MD Unavailable [phone] Reason for Referral * Diagnostic Imaging (Routine) - Closed Specialty Diagnoses / Procedures Referred By Contac t Referred To Contact Diagnoses Pain Procedures XR Hand Right 3 or More Views Alissa Fuentes MD Phone: tel: fax: [facility] [address] [place] [address] Referral ID Status Reason Start Date Expiration Date Visits Re quested Visits Authorized [id number] Closed 08/09/2021 09/08/2022 1 1 CAL BILLING SUPERVISOR Reason for Visit * Diagnostic Imaging (Routine) - Closed Specialty Diagnoses / Procedures Referred By Contac t Referred To Contact Diagnoses Pain Procedures XR Hand Right 3 or More Views Alissa Fuentes MD Phone: tel: fax: [facility] [address] [place] [address] Referral ID Status Reason Start Date Expiration Date Visits Re quested Visits Authorized [id number] Closed 08/09/2021 09/08/2022 1 1 Encounter Details Date Type Department Care Team (Latest Contact Info) Description 08/09/2021 1:39 PM MEDICAL BILLING SUPERVISOR Hospital Encounter 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 documented as of this encounter Procedures Procedure Name Priority Date/Time Associated Diagnosis Comments XR HAND RIGHT 3 OR MORE VIEWS Schedule Routine, Read Routine (OP Routine) 08/09/2021 1:58 PM MEDICAL BILLING SUPERVISOR Pain documented in this encounter Results * XR Hand Right 3 or More Views (08/09/2021 1:58 PM MEDICAL BILLING SUPERVISOR) Anatomical Region Laterality Modality Upper Extremities, Hand Right Computed Radiography 08/09/2021 2:13 PM MEDICAL BILLING SUPERVISOR Impressions 08/09/2021 2:13 PM MEDICAL BILLING SUPERVISOR 1. ??Healed/nearly healed right scaphoid waist fracture with a slightly sclerotic appearance of the proximal scaphoid. ??If there is clinical concern for osteonecrosis, MRI is recommended. 2. ??Slight left scapholunate interval widening which can be seen with scapholunate ligament insufficiency. 3. 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 Electronically signed by: José Miguel Christianson M.D. Narrative 08/09/2021 2:13 PM MEDICAL BILLING SUPERVISOR EXAMINATION: XR HAND RIGHT 3 OR MORE [...] pain documented in this encounter Care Teams Insulator Apprentice Relationship Specialty [place] [address] [facility] [address] [place] [address] Rheumatology 02/21/17 Lashay Downs, RN Registered Nurse Pain Management 06/17/17 Duke Do, RN Registered Nurse 09/09/17 Ngozi Petty MD Radiation Oncologist Radiation Oncology 02/05/19 Jose Roberto Marx MD Referring Physician Otolaryngology 02/05/19 documented as of this encounter
--- OUTSIDE RECORDS SUMMARY | 2024-06-14 16:48 | XMS_ITS | Encounter Summary ---
Author Organization [facility] Address [address] [facility] [place] [address] Care Team Providers Care Voltage Tester Name Role Phone Criss Blanco MD Unavailable Lashay Downs RN Unavailable Unavailab Duke Goodwin RN Unavailable UnavailNgozi Husain MD Unavailable [phone] Jose Roberto Marx MD Unavailable [phone] Reason for Visit * Reason Comments COVID-19 EVALUATION Pt is here for a pre procedural covid test. Encounter Details Date Type Department Care Team (Latest Contact Info) Description 10/10/2020 9:15 AM CDT Clinical Support [address] [place] [address] Encounter for allergy testing; Pre-operative laboratory examination Social History Tobacco Use Types Packs/Day Years Used Date Smoking Tobacco: Former Cigarettes 1.5 37 1 959 - 1995 Smokeless Tobacco: Never Alcohol Use Standard Drinks/Week Comments Yes 3 (1 standard drink = 0.6 oz pur e alcohol) AUDIT-C Answer Date Recorded Q1: How often do you have a drink containing alc ohol? 2-4 times a month 10/05/2020 Q2: How many drinks containi ng alcohol do you have on a typical day when you are drinking? 1 or 2 10/05/2020 Q3: How often do you have si x or more drinks on one occasion? 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 No concerns at this time. documented in this encounter Plan of Treatment [...] as of this encounter Visit Diagnoses Diagnosis Encounter for allergy testing Diagnostic skin and sensitization tests Pre-operative laboratory examination Pre-procedural laboratory examination documented in this encounter Care Teams Voltage Tester Relationship Specialty [place] [address] [facility] [address] [place] [address] Rheumatology 02/21/17 Lashay Downs, RN Registered Nurse Pain Management 06/17/17 Duke Do, RN Registered Nurse 09/09/17 Ngozi Petty MD Radiation Oncologist Radiation Oncology 02/05/19 Jose Roberto Marx MD Referring Physician Otolaryngology 02/05/19 documented as of this encounter
--- OUTSIDE RECORDS SUMMARY | 2024-06-14 16:48 | XMS_ITS | Encounter Summary ---
Author Organization [facility] Address [address] [place] [address] Phone Care Team Providers Care Residential Mental Health Worker Name Role Phone Criss Blanco MD Unavailable Lashay Downs RN Unavailable Unavailab Duke Goodwin RN Unavailable UnavailNgozi Husain MD Unavailable [phone] Jose Roberto Marx MD Unavailable [phone] Reason for Visit * Reason Comments Cancer * Consultation (Routine) - Closed Specialty Diagnoses / Procedures Referred By Alcira forrest Referred To Contact Otolaryngology Diagnoses Dysphonia Viraj Romeo, ZOILA [address] [place] [address] Phone: tel: fax: [facility] (All Locations) Referral ID Status Reason Start Date Expiration Date V isits Requested Visits Authorized [id number] Closed Specialty Services Required 06/23/2020 12/20/2020 99 99 Encounter Details Date Type Department Care Team (Late st Contact Info) Description 10/27/2020 9:40 AM CDT Office Visit [facility] ENT [address] [facility] Medical Office Building [address] [place] [id number] Nathanael Valdez MD [address] [place] [address] 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 Cancer Subjective Samuel Sanchez is a 75 y.o. male who presents today for follow-up of his voice. He reports thathis voice is about where he would expected to be 2 weeks after the procedure. He has had no issues. Outcomes: GFI: 0 VHI-10: 0 VCI: 0 RSI: 6 Objective Physical Exam Constitutional: He is oriented to person, place, and time. He is cooperative. Non-toxic appearance.He does not appear ill. HENT: Head: Normocephalic and atraumatic. Right Ear: External ear normal. Left Ear: External ear normal. Nose: Nose normal. The patient's voice sounds rough and strained. The pitch is expected for age & [...] closure is complete. The mucosal wave is reduced bilaterally and reduced on the right and intact on the left. There is mild supraglottic hyperfunction present on exam. The scope was thenremoved from the patient's nose, and he tolerated the procedure well. 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 Continue routine surveillance. Medications Orders: No orders of the defined types were placed in this encounter. Orders Placed: No orders of the defined types were placed in this encounter. Disposition: Return in about 8 weeks (around 12/22/2020). Nathanael Valdez MD, FACS Business Performance Specialist [facility] Division of Laryngology Department of Otolaryngology--Head & Neck Surgery Portions of this note were dictated using M*Modal Fluency Direct. Lugger variances may occur. documented in this encounter Miscellaneous Notes * Assessment & Plan Note - Nathanael Valdez MD - 10/27/2020 9:51 AM CDT Associated Problem(s): Squamous cell carcinoma [...] on stairs Contact your local community or [facility] for information on exercise, fall prevention programs, or options for improving home safety. 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
--- OUTSIDE RECORDS SUMMARY | 2024-06-14 16:48 | XMS_ITS | Encounter Summary ---
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 documented as of this encounter Visit Diagnoses Not on filedocumented in this encounter Care Teams Tunnel Mucker Relationship Specialty [place] [address] [facility] [address] [place] [address] Rheumatology 02/21/17 Lashay Downs, GAY Registered Nurse Pain Management 06/17/17 Duke Do, GAY Registered Nurse 09/09/17 Ngozi Petty MD Radiation Oncologist Radiation Oncology 02/05/19 Jose Roberto Marx MD Referring Physician Otolaryngology 02/05/19 documented as of this encounter
--- OUTSIDE RECORDS SUMMARY | 2024-06-14 16:48 | XMS_ITS | Encounter Summary ---
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 documented as of this encounter Procedures Procedure Name Priority Date/Time Associated Diagnosis Comments MRI TRANSFER OF OUTSIDE FILMS Routine 10/13/2021 3:00 PM CDT documented in this encounter Results * MRI Outside Reference (10/13/2021 3:00 PM CDT) Narrative [facility]_PACS[facility] - 12/05/2021 2:26 PM CDT This order has been auto-finalized and does not contain a result. us Not In File Miscellaneous IMG MRI PROCEDURES Fin al Result [facility] documented in this encounter Visit Diagnoses Not on filedocumented in this encounter Care Teams Specialty Manufacturing Supervisor Relationship Specialty [place] [address] [facility] [address] [place] [address] Rheumatology 02/21/17 Lashay Downs, GAY Registered Nurse Pain Management 06/17/17 Duke Do, RN Registered Nurse 09/09/17 Ngozi Petty MD Radiation Oncologist Radiation Oncology 02/05/19 Jose Roberto Marx MD Referring Physician Otolaryngology 02/05/19 documented as of this encounter
--- OUTSIDE RECORDS SUMMARY | 2024-06-14 16:48 | XMS_ITS | Encounter Summary ---
Author Organization [facility] Healthcare Address [address] [place] [address] Care Team Providers Care Rn Chronic Name Role Phone Criss Blanco MD Unavailable Lasahy Downs RN Unavailable Unavailab Duke Goodwin RN Unavailable UnavailNgozi Husain MD Unavailable [phone] Jose Roberto Marx MD Unavailable [phone] Encounter Details Date Type Department Care Team (Latest Contact Info) Description 10/13/2020 9:47 AM CDT - 10/13/2020 3:39 PM CDT Hospital Encounter [facility] Operating Room [address] [place] [address] Nathanael Valdez MD [address] [place] [address] Squamous cell carcinoma of larynx ([facility]/HCC) Discharge Disposition: Discharge to home or self [...] on file 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 Gender Identity Not on file Sexual Orientation Not on file 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 Not on file Not on natalie e documented as of this encounter Last Filed Vital Signs Vital Sign Reading Time Taken Comments Blood Pressure 135/85 10/13/2020 3:10 PM CDT Pulse 64 10/13/2020 3:20 PM CDT Temperature 36.1 ??C (97 ??F) 10/13/2020 3:30 PM CDT Respiratory Rate 10 10/13/2020 3:20 PM CDT Oxygen Saturation 94% 10/13/2020 3:20 PM CDT Inhaled Oxygen Concentration - - Weight 95.3 kg (210 lb) 10/05/2020 3:20 PM CDT Height 185.4 cm (6' 1 ) 10/05/2020 3:20 PM CDT Body Mass Index 27.71 10/05/2020 3:20 PM CDT documented in this encounter Discharge Diagnoses Diagnosis Malignant neoplasm of larynx, unspecified (HCC) - MALIGNANT NEOPLASM OF LARYNX, UNSPECIFIED Dysphonia - DYSPHONIA Malignant neoplasm of glottis (CMS/HCC) (HCC) - MALIGNANT NEOPLASM OF GLOTTIS Malignant neoplasm of glottis Gastro-esophageal reflux disease without esophagitis - GASTRO-ESOPHAGEAL REFLUX DISEASE WITHOUT ESOPHAGITIS Personal history of urinary calculi - PERSONAL HISTORY OF URINARY CALCULI Rheumatoid arthritis, unspecified (HCC) - RHEUMATOID ARTHRITIS, UNSPECIFIED Allergy status to other drugs, medicaments and biological substances - ALLERGY STATUS TO OTHER DRUGS, MEDICAMENTS AND BIOLOGICAL SUBSTANCES Other senior care (current) drug therapy - OTHER POLICE WORKER (CURRENT) DRUG THERAPY Personal history of nicotine dependence - PERSONAL HISTORY OF NICOTINE DEPENDENCE documented in this encounter Discharge Instructions * Attachments The following attachments cannot be sent through Care Everywhere. 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 Plan to proceed to the OR for biopsy and laser treatment of the new right TVC lesions. No orders of the defined types were placed in this encounter. Disposition: No follow-ups on file. Nathanael Valdez MD, FACS Supervisor Fine Grading [facility] Voice [facility] Airway Center Division of Laryngology Department of Otolaryngology--Head & Neck Surgery Portions of this note were dictated using M*Modal Fluency Direct. Manager Procurement variances may occur. I have seen and [...] case Condition: Stable to the PACU Attestation: Nathanael Mcneal MD, was present and participated in the entirety of the procedure * Pre-Procedure Instructions - Kavya Carson [place] BAIL[place] - 10/06/2020 8:58 AM CDT Center for Preoperative Assessment and Planning CPAP Clinic Location: [facility] The night before your surgery: * [...] Planning Perioperative Nursing Note Telephone Preoperative Evaluation ([facility]) - TELEPHONE ONLY, NO PHYSICAL EXAM [...] Alone Support Systems: Family members Assistance Needed: Surgical First Assistant and helper: Brother Raimundo Patient expects to [...] in a congregate living facility (ex. assisted living/custodial facility, senior living, detention)?: No Have you tested positive for COVID-19 [...] 20 seconds. Use an alcohol- based hand biofuels product manager that contains at least 60% alcohol if [...] insurance card, a photo ID (like a Surgical First Assistant's license) and a method of payment for [...] or department store or come by our CPAP clinic and we will give it to [...] COVID Test Request Placed in Epic to [facility]. Test to be performed on 10/10 at [facility], [place] [address], M-F 8a-7:30p, Sat/Sun 8a-7:30p. HOLIDAY hours may vary. If you have COVID testing or should have COVID testing for your surgery/procedure, please read below section: If you need to reschedule your COVID test to a different location or if your surgery gets rescheduled, you MUST call [phone] Saturday-Saturday 8am-4:30pm to get your COVID testing rescheduled or your lab order will not be available at Testing Sites. COVID Testing is only valid for up to 96 hours prior to surgery date, unless otherwise specified. If you are unable to reach staff at the above phone number, please call the CPAP Staff at [phone]. This number cannot order a lab test, [...] 20 seconds. Use an alcohol- based hand biofuels product manager that contains at least 60% alcohol if soap and water are not available. All patients should read below section: All visitors/patients are being asked to wear a clean mask when entering the hospital. COVID 19 Updates & Visitor Policy: Please access [email or web address] for the most updated information. Information on [facility]: Please view [email or web address] (Patient & Visitor Information) for additional details regarding Advanced Directive forms, AWARE, directions, parking information, lodging, Internet access, dining and more. Information on [facility]: Please view [email or web address] (Patient and Visitor Information) for parking/directions and more. For MyChart information, to activate account or password recovery, please go to [email or web address] or call [phone] (toll-free: [phone]). Surgery Times: For patients having surgery @ [facility], [facility] or [facility], if your surgeon's office has not notified you of your surgery time by NOON THE BUSINESS DAY BEFORE your surgery, please call [phone] and ask for your surgeon'soffice Dr Nathanael [...] on stairs Contact your local community or [facility] for information on exercise, fall prevention [...] biopsy) 10/13/2020 1:09 PM CDT Narrative PATHOLOGY [facility] - 10/18/2020 10:07 AM CDT EPIC results best viewed via link to PDF [facility] [place] [address] SURGICAL PATHOLOGY REPORT FINAL Patient Name: ?? PASQUALE SANCHEZ Gender: ??M : ??1945 (Age: 75) Address: ??[address] [place] [address] Hospital #: ??[id number] Taken:10/13/2020 Received:10/13/2020 Reported: 10/18/2020 Patient Type: [facility] SDS ?? Service: Surgery Location: [facility] Physician(s): ??Nathanael Valdez M.D. ZOILA Kuo Diagnosis: [...] No evidence of dysplasia or malignancy ?? [facility]10/17/2020 10:09 By this signature, I attest that [...] of massey tissue. ??Labeled F1. ??Jar 0. mab10/14/2020 10:29 PA(s): Iris Cobos MS, PA ([facility]) By this signature, I attest that the above diagnosis is based upon my personal examination of the slides(and/or other material). Addenda/Procedures The performance characteristics of some immunohistochemical stains, fluorescence in-situ hybridization tests and immunophenotyping by flow cytometry cited in this report (if any) were determined by the Surgical Pathology Department at [facility] as part of an ongoing quality assurance analyst program and in compliance with federally mandated [...] determined by the Surgical Pathology Department of [facility]. ??It has not been cleared or approved by the U. S. Food and Drug Administration. 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)- Primary Malignant neoplasm of larynx, unspecified site documented [...] 30 mL/hr, intravenous, Continuous, Starting on Manasa 5/13/21 at 1200, Pre-Op New Bag 10/13/2020 12:18 PM CDT documented in this encounter Discontinued Medications Medication [...] oxyCODONE (ROXICODONE) tablet 5 mg 1 2020 oxymetazoline (AFRIN) 0.05 % nasal spray 1 10/13/2020 sodium chloride 0.9% flush 0.5-20 mL 1 10/01 sodium chloride 0.9% irrigation 1 Diet Count Last Ordered Date First Orde red Date ADULT DISCHARGE DIET 1 10/13/2020 Nursing Count Last Ordered Date First Orde red Date DISCHARGE ACTIVITY 1 10/13/2020 DISCHARGE CALL PROVIDER 3 10/13/2020 documented in this encounter Care Teams Rn Chronic Relationship Specialty [place] [address] [facility] [address] [place] [address] Rheumatology 02/21/17 Lashay Downs, GAY Registered Nurse Pain Management 06/17/17 Duke Do, RN Registered Nurse 09/09/17 Ngozi Petty MD Radiation Oncologist Radiation Oncology 02/05/19 Jose Roberto Marx MD Referring Physician Otolaryngology 02/05/19 documented as of this encounter
--- OUTSIDE RECORDS SUMMARY | 2024-06-14 16:48 | XMS_ITS | Encounter Summary ---
Author Organization [facility] Address [address] [facility] [address] [place] [address] Care Team Providers Care Rehabilitation Services Director Name Role Phone Criss Blanco MD Unavailable Lashay Downs RN Unavailable Unavailab Duke Goodwin RN Unavailable UnavailNgozi Husain MD Unavailable [phone] Jose Roberto Marx MD Unavailable [phone] Reason for Visit * Reason Comments COVID-19 EVALUATION Encounter Details Date Type Department Care Team (Latest Contact Info) Description 03/23/2021 11:45 AM CDT Clinical Support [facility] [address] [place] [phone] Encounter for screening for COVID-19 (Primary Dx) Social History Tobacco Use Types [...] on file 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 documented as of this encounter Procedures Procedure Name Priority Date/Time Associated Diagnosis Comments COVID-19 POC Routine 03/23/2021 11:39 AM CDT Encounter for screening for COVID-19 documented in this encounter Results * COVID-19 POC (03/23/2021 11:39 AM CDT) COVID-19 Ag POC (BD Veritor) Presumptive Negative Presumptive Negative, Invalid [facility] Nasal 03/23/2021 11:3 9 AM CDT Claire Loyd [employer] LIBRARIAN POINT OF CARE TEST OR DERABLES Final Result [facility] [address] [facility] [place] [address] documented in this encounter Visit Diagnoses Diagnosis Encounter for screening for COVID-19- Primary documented in this encounter Care Teams Rehabilitation Services Director Relationship Specialty [place] [address] [facility] [address] [place] [address] Rheumatology 02/21/17 Lashay Downs, RN Registered Nurse Pain Management 06/17/17 Duke Do, RN Registered Nurse 09/09/17 Ngozi Petty MD Radiation Oncologist Radiation Oncology 02/05/19 Jose Roberto Marx MD Referring Physician Otolaryngology 02/05/19 documented as of this encounter
--- OUTSIDE RECORDS SUMMARY | 2024-06-14 16:48 | XMS_ITS | Encounter Summary ---
Author Organization [facility] Healthcare Address [address] [place] [address] Care Team Providers Care Director Of Occupational Health Name Role Phone Criss Blanco MD Unavailable Lashay Downs RN Unavailable Unavailab Duke Goodwin RN Unavailable UnavailNgozi Husain MD Unavailable [phone] Jose Roberto Marx MD Unavailable [phone] Reason for Referral * Diagnostic Imaging (Routine) - Closed Specialty Diagnoses / Procedures Referred By Contac t Referred To Contact Diagnoses Pain Procedures XR Wrist Right 3 or More Views Alissa Fuentes MD Phone: tel: fax: [facility] [address] [place] [address] Referral ID Status Reason Start Date Expiration Date Visits Re quested Visits Authorized [id number] Closed 02/09/2021 03/11/2022 1 1 Reason for Visit * Diagnostic Imaging (Routine) - Closed Specialty Diagnoses / Procedures Referred By Contac t Referred To Contact Diagnoses Pain Procedures XR Wrist Right 3 or More Views Alissa Fuentes MD Phone: tel: fax: [facility] [address] [place] [address] Referral ID Status Reason Start Date Expiration Date Visits Re quested Visits Authorized [id number] Closed 02/09/2021 03/11/2022 1 1 Encounter Details Date Type Department Care Team (Latest Contact Info) Description 02/09/2021 11:38 AM CDT - 02/09/2021 11:59 PM CDT Hospital Encounter [facility] - [facility] [address] [place] [address] Pain Discharge Disposition: Discharge to [...] on file 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 Gender Identity Not on file Sexual Orientation [...] mouth 2 (two) times a day biotin 10,000 mcg capsule 2 cetirizine 10 [...] Name Priority Date/Time Associated Diagnosis Comments XR WRIST RIGHT 3 OR MORE VIEWS Schedule Routine, Read Routine (OP Routine) 02/09/2021 11:47 AM CDT Pain documented in this encounter Results * XR Wrist Right 3 or More Views (02/09/2021 11:47 AM CDT) Anatomical Region Laterality Modality Upper Extremities, Wrist Right Compute d Radiography 02/09/2021 4:58 PM CDT Impressions 02/09/2021 4:58 PM CDT Suspect either an advanced healing or healed fracture through the waist of the navicular bone. Moderate to severe arthritic changes of the distal radial ulnar articulation. ??Otherwise scattered mild osteoarthritic changes. Electronically signed by: Chidi Fenton M.D. Narrative 02/09/2021 4:58 PM CDT Exam: Right wrist 3 views HISTORY: Right wrist pain FINDINGS: PA, oblique and lateral views were obtained and demonstrates what appears to be either an advanced healing or old healed relatively transverse fracture through the waist of the navicular bone. Moderate to severe arthritic changes suggested at the distal radial ulnar articulation. ??There is also arthritic changes at the scaphoid multangular and early arthritic changes at the 1st carpal metacarpal articulation. ??Degenerative cyst formation seen within the lunate bone and also suggested arthritic changes of the proximal aspect of the triquetral bone. Procedure Note Chidi Fenton MD - 02/09/2021 Exam: Right wrist 3 views HISTORY: Right wrist pain FINDINGS: PA, oblique and lateral views were obtained and demonstrates what appears to be either an advanced healing or old healed relatively transverse fracture through the waist of the navicular bone. Moderate to severe arthritic changes suggested at the distal radial ulnar articulation. There is also arthritic changes at the scaphoid multangular and early arthritic changes at the 1st carpal metacarpal articulation. Degenerative cyst formation seen within the lunate bone and also suggested arthritic changes of the proximal aspect of the triquetral bone. IMPRESSION: Suspect either an advanced healing or healed fracture through the waist of the navicular bone. Moderate to severe arthritic changes of the distal radial ulnar articulation. Otherwise scattered mild osteoarthritic changes. Electronically signed by: Chidi Fenton M.D. Alissa Fuentes MD IMG XR PROCEDURES Final Result documented in this encounter Visit Diagnoses Diagnosis Pain Generalized pain documented in this encounter Care Teams Director Of Occupational Health Relationship Specialty [place] [address] [facility] [address] [place] [address] Rheumatology 02/21/17 Lashay Downs, RN Registered Nurse Pain Management 06/17/17 Duke Do, RN Registered Nurse 09/09/17 Ngozi Petty MD Radiation Oncologist Radiation Oncology 02/05/19 Jose Roberto Marx MD Referring Physician Otolaryngology 02/05/19 documented as of this encounter
--- OUTSIDE RECORDS SUMMARY | 2024-06-14 16:48 | XMS_ITS | Encounter Summary ---
Author Organization [facility] Healthcare Address [address] [place] [address] Care Team Providers Care Barrel Filler Head Name Role Phone Criss Blanco MD Unavailable Lashay Downs RN Unavailable Unavailab Duke Goodwin RN Unavailable UnavailNgozi Husain MD Unavailable [phone] Jose Roberto Marx MD Unavailable [phone] Reason for Visit * Reason Comments Initial Consult Back Pain Encounter Details Date Type Department Care Team (Latest Contact Info) Description 12/05/2021 2:19 PM CDT - 12/05/2021 11:59 PM CDT Hospital Encounter [facility] [address] [place] [address], [facility] [address] [place] [address] Ezequiel Shelton MD [address] [place] [address] [address] [place] [address] Chronic bilateral low back pain without sciatica (Primary Dx); DDD (degenerative disc disease), lumbar; Lumbar facet arthropathy Discharge Disposition: Discharge to home or self [...] on file 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 Gender Identity Not on file Sexual Orientation Not on file 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 on file Not on natalie e documented as of this encounter Last Filed Vital Signs Vital Sign Reading Time Taken Comments Blood Pressure 121/91 12/05/2021 2:30 PM CDT Pulse 69 12/05/2021 2:30 PM CDT Temperature - - Respiratory Rate 16 12/05/2021 2:30 PM CDT Oxygen Saturation 100% 12/05/2021 2:30 PM CDT Inhaled Oxygen Concentration - - Weight - - Height - - Body Mass Index - - documented in this encounter Discharge Instructions * Attachments The following attachments cannot be sent through Care Everywhere. * Meloxicam (By mouth) (Bulgarian) documented in this encounter Medications at Time [...] THREE TIMES A WEEK DIRECTED 11/17/2020 2 meloxicam (MOBIC) 15 mg tabletIndications :Chronic bilateral low back pain without sciatica Take 1 tablet (15 mg total) by mouth daily 30 tablet 5 12/05/2021 2 methotrexate 2.5 mg tablet Take 6 [...] Refills Last Filled Start Date End Date meloxicam (MOBIC) 15 mg tabletIndications: Chronic bilateral low back pain without sciatica Take 1 tablet (15 mg total) by mouth daily 30 tablet 5 12/05/2021 04/30/2022 documented in this encounter Discharge Disposition Disposition Code Departure Means Destination Discharge to home or self care documented in this encounter Progress Notes * Ezequiel Shelton MD - 12/05/2021 2:30 PM CDT Patient Name: Samuel Sanchez : 1945 Today's Date: 12/05/2021 PCP: Viraj Romeo PA Referring: No ref. provider found Chief Complaint Patient presents with ??? Initial Consult ??? Back Pain HPI Samuel Sanchez is a 76 y.o. year old male seen in consultation today for No ref. provider found. He presents with a Chief Complaint of bilateral low back pain. He states his right side is worse than his left. He denies any leg. His pain began 25 years ago. Since that [...] the numeric pain scale. At Worst 10/10 Provocative maneuvers include sitting, standing, and lifting., At Best 0/10 All eviating maneuvers include changing position. With regard to additional symptoms the patient [...] Pain Location: Back (Lumbar) Pain Radiating Towards: denies Pain Descriptors: Dull;Aching Pain Frequency: Intermittent Pain Onset: Ongoing Clinical Progression: Gradually worsening Effect of Pain on Daily Activities: bale to complete ADLs Allergies Allergen Reactions ??? Perfume Swelling, Cough and Shortness of breath ??? Mold Unknown ??? Cat Dander Eye irritation ??? Hydrocodone Itching ??? Vicodin [Hydrocodone-Acetaminophen] Itching Past Medical History: Diagnosis Date ??? Allergic [...] shoulder bone spurs ??? HX OTHER MEDICAL 1963 ear drum patch ??? HX OTHER MEDICAL 1978 testicle ??? HX OTHER MEDICAL Headache, migraine ??? HX OTHER MEDICAL 1981 Bisept tendonitis ??? HX OTHER MEDICAL 1994 Pinched Prostate ??? HX OTHER MEDICAL 2000 kidney stone ??? HX OTHER MEDICAL hemorroids; Comments: Had done at [facility] in [place] ??? HX OTHER MEDICAL bladder infection ??? HX OTHER MEDICAL kidney stone ??? Low back pain ??? Malignant neoplasm of 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 ??? Migraine ??? Rheumatoid arthritis (HCC) Past Surgical History: Procedure Laterality Date ??? BICEPS TENODESIS Left 1969's ??? COLONOSCOPY 03/14/2020 ??? EAR SURGERY Left 1970's repair perforated eardrum ??? LARYNGOSCOPY Right 01/09/2019 Direct laryngoscopy with biopsy ??? LARYNGOSCOPY Right 02/16/2019 Suspension microlaryngoscopy with KTP laser photoablation Right vocal fold lesion ??? LITHOTRIPSY s - [id number] 5 or 6 times ??? ORCHIECTOMY Right 1970's ??? OTHER SURGICAL HISTORY 04/18/2020 Suspension microlaryngoscopy with KTP laser treatment ??? PROSTATE SURGERY 1970's Pinched Prostate: surgically repaired ??? ROTATOR CUFF REPAIR Right 1969' and removal of bone spurs ??? SHOULDER SURGERY Right bone spurs ??? VASECTOMY 1969' Social History Tobacco Use ??? Smoking status: Former Smoker Packs/day: 1.50 Years: 30.00 Pack years: 45.00 Types: Cigarettes Start date: 1958 Quit date: 1996 Years since quittin.5 ??? Smokeless tobacco: Never Used Substance and Sexual Activity ??? Drug use: Yes Types: Medical marijuana ??? Sexual activity: Defer Alcohol Use: Not on file Family History Adopted: Yes Problem Relation Age of Onset ??? Other Other adopted ??? Other Other adopted ??? Anesthesia problems Neg Hx HOME MEDICATIONS : biotin 10,000 mcg capsule cetirizine 10 mg capsule famotidine (PEPCID) 40 mg tablet fluocinonide (LIDEX) 0.05 % external solution ketoconazole (NIZORAL) 2 % shampoo meloxicam (MOBIC) 15 mg tablet methotrexate 2.5 mg tablet multivitamin capsule oxyCODONE-acetaminophen (PERCOCET) 5-325 mg per tablet SUMAtriptan (IMITREX) 100 mg tablet tamsulosin (FLOMAX) 0.4 mg extended release capsule tiZANidine (ZANAFLEX) 4 mg tablet topiramate (TOPAMAX) 50 mg tablet UNABLE TO FIND vit A/vit C/vit E/zinc/copper (PRESERVISION AREDS ORAL) Review of Systems Review of Systems Constitutional: [...] patient is not nervous/anxious. Physical Exam Vitals: 12/05/21 1430 BP: 121/91 BP Location: Left arm Patient Position: Sitting Pulse: 69 Resp: 16 SpO2: 100% There is no [...] dry, and intact; no lesions are noted. Palpation produces no pain Percussion produces no pain Lumbar Flexion 80 degrees produces no pain Extension 30 degrees [...] facet arthropathy. Review of Data: Checked the [employer] sheet and it was consistent with our meds. UDT results: A sample was not obtained The patient was not given a prescription for intranasal Narcan for the management of opioid inducedrespiratory depression or excess sedation. I reviewed the [place] Prescription Monitoring Program printout and it was consistent and appropriate. The patient denies the use of Tobacco The patient denies a diagnosis of hypertension. Based upon today's blood pressure is he was encouraged to follow-up with primary care physician for further evaluation in management of his blood pressure. Assessment: Based on the history, physical exam, and MRI of his lumbar spine my impression is the patient has a primary diagnosis of lumbago, lumbar degenerative disc disease, and lumbar facet arthropathy. I had an in-depth conversation with Mr. Sanchez and reviewed with him the past treatments that have provided him no relief. He states that lumbar epidural steroid injections provide him no relief, medial branch blocks for his lumbar facets provide him no relief, and intra-articular facet joint steroid injections provided him no relief. His impression is that he has ???vertebrogenic?? pain. Based upon the past treatments that have provided him no relief, and his frustration my recommendation is he be seen and evaluated by Dr. Gomez. From my point of view I offered him a trial of meloxicam 15 mg 1 tablet p.o. q.day, and I provided him information with regard to a spinal cord stimulator trial. As I explained to him I am hesitant to repeat interventions that have not provided him relief in the past. I will have him follow-up once he has been seen and evaluated by Dr. Gomez. In the interim I will have him call with report of relief with the use of meloxicam. I will also have him notify our office if he wishes to proceed with a spinal cord stimulator trial, and I explained the 1st step would be to obtain an MRI of his thoracic spine to assess whether thereis room for the leads. Another step is to obtain psychological clearance for a spinal cord stimulator trial. He denies any questions with regard above-mentioned plan, agrees and will make an appointment with Dr. Gomez. He states that he cannot tolerate opioids due to severe insomnia. Problem List Musculoskeletal and Injuries Chronic bilateral low back pain without sciatica - Primary Relevant Medications meloxicam (MOBIC) 15 mg tablet Neuro DDD (degenerative disc disease), lumbar Lumbar facet arthropathy Plan No orders of the defined types were placed in this encounter. I will trial meloxicam 15 mg 1 tab p.o. q.day, refer him to Dr. Gomez and have him follow-up on an as-needed basis if he wishes to proceed with a spinal cord stimulator trial. No follow-ups on file. Thank you for allowing me to participate in the care of this pleasant patient. Ezequiel Shelton MD 12/05/2021 documented in this encounter Plan of Treatment [...] on stairs Contact your local community or [facility] for information on exercise, fall prevention programs, or options for improving home safety. documented as of this encounter Visit Diagnoses Diagnosis Chronic bilateral low back pain without sciatica- Primary DDD (degenerative disc disease), lumbar Degeneration of lumbar or lumbosacral intervertebral disc Lumbar facet arthropathy Spondylosis of unspecified site without mention of myelopathy documented in this encounter Care Teams Barrel Filler Head Relationship Specialty [place] [address] [facility] [address] [place] [address] Rheumatology 02/21/17 Lashay Downs, GAY Registered Nurse Pain Management 06/17/17 Duke Do, RN Registered Nurse 09/09/17 Ngozi Petty MD Radiation Oncologist Radiation Oncology 02/05/19 Jose Roberto Marx MD Referring Physician Otolaryngology 02/05/19 documented as of this encounter
--- OUTSIDE RECORDS SUMMARY | 2024-06-14 16:48 | XMS_ITS | Encounter Summary ---
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] Procedures FL LARYNGOSCOPY,DIRCT,OP SCOP,EXC TUMR MICROLARYNGOSCOPY WITH BIOPSY/EXCISION LESION LASER KTP Nakita Herrera MD [address] [place] [address] Phone: tel: fax: Referral ID Status Reason Start Date Expiration Date Visits Re quested Visits Authorized [id number] 04/25/2022 1 1 Encounter Details Date Type Department Care Team (Late st Contact Info) Description 04/30/2022 8:36 AM MANAGER CASINO Anesthesia Event [facility] Operating Room [address] [place] [place] [address] Milan Roy MD [address] [place] [address] Leticia Gresham CRNA [address] [place] [address] Anesthesia Record Procedure Summary Procedure Name Responsible Anesthesiologist Anesthesia Start Time Anesthesia Stop Time SUSPENSION MICROLARYNGOSCOPY WITH EXCISION OF VOCAL FOLD LESION (Throat) Milan Roy MD 04/30/22 0836 04/30/22 1000 Events Date Time Event Comment 04/30/2022 0706 0814 AN Equip Check 0836 An Start 0841 In Room 0843 An Start Data 0846 An Induction The patient was reevaluated immediately before moderate or deep sedation use and before anesthesia induction. 0848 An Intubation 0850 Anesthesia Ready 0854 Proc Start 0854 Incision Start 0928 Quick Note Laser timeout i s completed prior to laser start. 0946 Quick Note Surgeon give 4 cc 4% Lidocaine LTA to laryngeal area. 0947 Proc Fin 0949 Quick Note Insert 18 Fr OG tube to suction stomach. Remove OG tube after suction. 0952 An Extubation 0954 an stop data 0954 Out of Room 1000 Handoff to RN I completed my handoff [...] disposition at the time of handoff: PACU 1000 An Stop Meds Name Total fentaNYL PF 100 mcg Lidocaine IV 1% PF 50 mg propofol 200 mg rocuronium 40 mg ondansetron PF 4 mg dexamethasone 4 mg/ml 8 mg sugammadex 200 mg Lactated Ringer's (LR) infusion 1,200 mL * Agents Name O2 N2O Air [...] Denise Soares RN 05/07/22 1102 by Margareth Flores RN Oral/Nasal Airway Placement Date: 04/30/22; Non-Surgical Airway Device: Oral pharyngeal airway; Removal Date: 04/30/22; Removal Time: 1005 04/30/22 0000 by Radha Kirk RN 04/30/22 1005 by Radha Kirk RN Peripheral IV Placement Date: 04/30/22; Placement Time: 0715; Catheter Size: 20 G; Orientation: Anterior, Right; Location: Hand; Site Prep: Chlorhexidine; Technique: Anatomical landmarks; Insertion Attempts: 1; Patient Tolerance: Tolerated well; Removal Date: 04/30/22; Removal Time: 1042 04/30/22 0715 by Zuleima Castro RN 04/30/22 1042 by Radha Kirk RN ETT Placement Date: 04/30/22; Placement Time: 0904 (created via procedure documentation); Mask Ventilation: 1; Technique: Video laryngoscopy; Type: Laser tube; Single Lumen Tube Size: 5 mm; Cuffed: Yes; Laryngoscope: Jorge; Blade Size: 4; Location: Oral; Insertion Attempts: 1; Placement Verification: Auscultation; Removal Date: 04/30/22; Removal Time: 0952 04/30/22 0904 by Leticia Gresham CRNA 04/30/22 0952 by Leticia Gresham CRNA RETIRED Surgical Site 04/30/22; 0937; Throat; 05/07/22 04/30/22 0937 by Shereen Amato RN 05/07/22 0000 by Marlene Wells RN documented in this encounter Social History [...] file Legal Sex Male 12:56 AM MANAGER CASINO Gender Identity Not on file Sexual Orientation Not on file 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 on file Not on natalie e documented as of this encounter OR Notes * Anesthesia Postprocedure Evaluation - Milan Roy MD - 04/30/2022 1:48 PM CST Patient: Samuel Sanchez Procedure Summary Date: 04/30/22 Room / Location: [facility] 05 / [facility] Anesthesia Start: 835 Anesthesia Stop: 999 Procedures: SUSPENSION MICROLARYNGOSCOPY WITH EXCISION OF VOCAL FOLD LESION (Throat) LASER KTP (Throat) Diagnosis: Lesion of vocal fold (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]) Surgeons: Nakita Herrera MD Responsible Provider: Milan Roy MD Anesthesia Type: general ASA Status: 3 Anesthesia Type: general Last vitals BP 129/69 Pulse 71 Temp 36.5 ??C (97.7 ??F) Resp 20 SpO2 96% Anesthesia Post Evaluation Patient location during evaluation: PACU Patient participation: complete - patient participated Level of consciousness: fully awake Pain score: 0 Pain management: adequate Airway patency: adequate Evidence of recall: no Cardiovascular status: hemodynamically stable and acceptable Respiratory status: acceptable and room air Hydration status: acceptable Pt is: normothermic Nausea/Vomiting status: none No notable events documented. GER CASINO * Anesthesia Procedure Notes - Leticia Gresham CRNA - 04/30/2022 9:02 AM MANAGER CASINO Associated Order(s): Airway Airway Patient location: OR [...] of attempts: 1 Ventilation between attempts: none GER CASINO * Anesthesia Preprocedure Evaluation - Milan Roy MD - 04/30/2022 7:00 AM CST Images from the original note were not included. Anesthesia Evaluation Samuel Sanchez is a 76 y.o. 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 Headache ??? 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 DDD (degenerative disc [...] ??? Malignant neoplasm of prostate (CMS/HCC) (HCC) Past Medical History: Diagnosis Date ??? Allergic rhinitis ??? Arthritis arthritis ??? Calculus of kidney Nephrolithiasis ??? Cancer of vocal cord (CMS/HCC) (HCC) ??? Depression ??? Gastric reflux ??? Gastroesophageal reflux disease acid reflux ??? Headache, tension-type ??? History of multiple allergies allergies ??? HX OTHER MEDICAL 1980 L shoulder ??? HX OTHER MEDICAL 1981 R shoulder ??? HX OTHER MEDICAL 1986 R shoulder bone spurs ??? HX OTHER MEDICAL 1963 ear drum patch ??? HX OTHER MEDICAL 1977 testicle ??? HX OTHER MEDICAL Headache, migraine ??? HX OTHER MEDICAL 1981 Bisept tendonitis ??? HX OTHER MEDICAL 1994 Pinched Prostate ??? HX OTHER MEDICAL 2000 kidney stone ??? HX OTHER MEDICAL hemorroids; Comments: [facility] [place] ??? HX OTHER MEDICAL bladder infection ??? HX OTHER MEDICAL kidney stone ??? Low back pain ??? Malignant neoplasm of 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 ??? Migraine ??? Rheumatoid arthritis (HCC) Past Surgical History: Procedure Laterality Date ??? BICEPS TENODESIS Left 1969's ??? COLONOSCOPY 03/14/2020 ??? EAR SURGERY Left repair perforated eardrum ??? LARYNGOSCOPY Right 01/09/2019 Direct laryngoscopy with biopsy ??? LARYNGOSCOPY Right 02/16/2019 Suspension microlaryngoscopy with KTP laser photoablation Right vocal fold lesion ??? LITHOTRIPSY - 1560-2600 5 or 6 times ??? ORCHIECTOMY Right 1970's ??? OTHER SURGICAL HISTORY 04/18/2020 Suspension microlaryngoscopy with KTP laser treatment ??? PROSTATE SURGERY Pinched Prostate: surgically repaired ??? ROTATOR CUFF REPAIR Right and removal of bone spurs ??? SHOULDER SURGERY Right bone spurs ??? VASECTOMY Allergies Allergen Reactions ??? Perfume Swelling, Cough and Shortness of breath ??? Mold Unknown ??? Cat Dander Eye irritation ??? Hydrocodone Itching ??? Vicodin [Hydrocodone-Acetaminophen] Itching Taking? Last Dose Start Date End Date Provider biotin 10,000 mcg capsule -- -- -- Emmie Reynoso MD cetirizine 10 mg capsule -- -- -- Emmie Reynoso MD famotidine (PEPCID) 40 mg tablet -- 03/28/20 -- Emmie Reynoso MD fluocinonide (LIDEX) 0.05 % external solution -- 11/17/20 -- Emmie Reynoso MD ketoconazole (NIZORAL) 2 % shampoo -- 11/17/20 -- Emmie Reynoso MD meloxicam (MOBIC) 15 mg tablet -- 12/05/21 06/03/22 Ezequiel Shelton MD Take 1 tablet (15 mg total) by mouth daily methotrexate 2.5 mg tablet -- 02/02/20 -- Emmie Reynoso MD multivitamin capsule -- -- -- Emmie Reynoso MD SUMAtriptan (IMITREX) 100 mg tablet -- 08/03/21 -- Samuel Stephens MD Take one tabet po q2h prn as soon as feel headache is coming. No more than 2 tablets in 24 hours. tamsulosin (FLOMAX) 0.4 mg extended release capsule -- -- -- Emmie Reynoso MD tiZANidine (ZANAFLEX) 4 mg tablet -- 03/22/20 -- Emmie Reynoso MD Notes: One tablet at night, partial relief, no SE, LD last night. topiramate (TOPAMAX) 50 mg tablet -- 08/03/21 -- Samuel Stephens MD Take half tablet (25 mg) po twice a day for one week, then one tablet po twice a day UNABLE TO FIND -- -- -- Emmie Reynoso MD vit A/vit C/vit E/zinc/copper (PRESERVISION AREDS ORAL) -- -- -- Emmie Reynoso MD No current facility-administered medications for this encounter. Social History Tobacco Use Smoking Status Former ??? Packs/day: 1.50 ??? Years: 30.00 ??? Pack years: 45.00 ??? Types: Cigarettes ??? Start date: 1958 ??? Quit date: 1995 ??? Years since quittin.9 Smokeless Tobacco Never Alcohol Use: Not on file Substance and Sexual Activity Drug Use Yes ??? Types: Medical marijuana Family History Adopted: Yes Problem Relation Age of Onset ??? Other Other adopted ??? Other Other adopted ??? Anesthesia problems Neg Hx Vitals: 04/30/22 0641 Temp: 36.1 ??C (97 ??F) PT: No results found for requested labs [...] for requested labs within last 720 hours. DOS Physical Exam Medical history, medications, and allergies reviewed. Attestation: This PAT evaluation 04/30/2022. Airway Exam: Mallampati: III Cervical ROM: FROM TM distance: 3 Cardiovascular Exam: Rate: regular Rhythm: regular Pulmonary Exam: LCTA, bilat Dental Exam: Appears intact Anesthesia Plan ASA 3 My patient is approved for the Anesthesia Controlled Medication protocol when under care of a THEOLOGY TEACHER Planned anesthesia: General Team communication plan: LMA Informed Consent: Anesthesia plan and risks discussed with patient. Consent and Attending signature: I and/or my designee have discussed the anesthesia plan, benefits, possible alternatives, parental presence at time of induction (if indicated), and clinically relevant risks that may include dental injury, unintentional awareness, and/or other complications. The patient and/or parent/legal guardian understand, and agree to proceed. All questions answered. GER CASINO documented in this encounter Plan of Treatment [...] Procedure Name Priority Date/Time Associated Diagnosis Comments FL AN PROCEDURE PLACEHOLDER Routine 04/30/2022 9:02 AM MANAGER CASINO FL AN ELECTIVE ENDOTRACHEAL AIRWAY Routine 04/30/2022 9:02 AM MANAGER CASINO documented in this encounter Results * FL AN ELECTIVE ENDOTRACHEAL AIRWAY, FL AN PROCEDURE PLACEHOLDER (04/30/2022 9:02 AM MANAGER CASINO) Narrative Lteicia Gresham CRNA - 04/30/2022 9:02 AM MANAGER CASINO Leticia Gresham CRNA ? 04/30/2022 ??9:03 AM Airway Patient location: OR Urgency: elective [...] of attempts: 1 Ventilation between attempts: none us Milan Roy MD ANESTHESIA ORDERABLES Mariaa l Result documented in this encounter Visit Diagnoses Not on filedocumented in this encounter Administered Medications Inactive Administered Medications - up to 3 most recent administrations Medication Order MAR Action Action Date Dose Rate Site dexAMETHasone (DECADRON) 4 mg/mL injection intravenous, Administer over 2 Minutes, As needed, Starting on Sat04/30/22 at 0846, Anesthesia Intra-op Given 04/30/2022 8:46 AM MANAGER CASINO 8 mg fentaNYL (SUBLIMAZE) preservative free injection intravenous, As needed, Starting on Sat04/30/22 at 0846, Anesthesia Intra-op Given 04/30/2022 8:46 AM MANAGER CASINO 100 mcg Lactated Ringer's (LR) infusion 30 mL/hr, intravenous, Continuous, Starting on Sat04/30/22 at 0745, For 4 hours, Pre-Op, Use a 500 ml bag for End Stage Renal Disease Patients. Discontinue if fluid still running once patient arrives to floor. New Bag 04/30/2022 9:35 AM MANAGER CASINO Rate/Dose Verify 04/30/2022 8:36 AM MANAGER CASINO 30 mL/h r New Bag 04/30/2022 7:21 AM MANAGER CASINO 30 mL/hr 30 mL/hr lidocaine PF (XYLOCAINE) 10 mg/mL (1 %) preservative free injection intravenous, As needed, Starting on Sat04/30/22 at 0846, Anesthesia Intra-op Given 04/30/2022 8:46 AM MANAGER CASINO 50 mg ondansetron (ZOFRAN) injection intravenous, Administer over 2 Minutes, As needed, Starting on Sat04/30/22 at 0950, Anesthesia Intra-op Given 04/30/2022 9:50 AM MANAGER CASINO 4 mg propofoL (DIPRIVAN) 10 mg/mL IV intravenous, As needed, Starting on Sat04/30/22 at 0846, Anesthesia Intra-op Given 04/30/2022 8:46 AM MANAGER CASINO 200 mg rocuronium (ZEMURON) injection intravenous, As needed, Starting on Sat04/30/22 at 0900, Anesthesia Intra-op Given 04/30/2022 9:00 AM MANAGER CASINO 10 mg Given 04/30/2022 8:46 AM MANAGER CASINO 30 mg sugammadex (BRIDION) 100 mg/mL intravenous solution intravenous, As needed, Starting on Sat04/30/22 at 0946, Anesthesia Intra-op Given 04/30/2022 9:46 AM MANAGER CASINO 200 mg documented in this encounter Care Teams [employer] Teacher Relationship Specialty [place] [id number] [facility] [address] [place] [address] Rheumatology 02/21/17 Lashay Downs, RN Registered Nurse Pain Management 06/17/17 Duke Do, RN Registered Nurse 09/09/17 Ngozi Petty MD Radiation Oncologist Radiation Oncology 02/05/19 Jose Roberto Marx MD Referring Physician Otolaryngology 02/05/19 documented as of this encounter
--- OUTSIDE RECORDS SUMMARY | 2024-06-14 16:48 | XMS_ITS | Encounter Summary ---
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 documented as of this encounter Procedures Procedure Name Priority Date/Time Associated Diagnosis Comments FACTOR V LEIDEN MUTATION DETECTION STAT 10/05/2020 11:21 AM CDT documented in this encounter Results * Factor V Leiden Mutation Detection (10/05/2020 11:21 AM CDT) Blood specimen (specimen) 10/05/2020 11:21 AM CDT 10/05/2020 3:11 PM CDT us [facility] GENETIC TESTING Final Res ult [facility] [address] [email or web address] [facility] [place] [address] documented in this encounter Visit Diagnoses Not on filedocumented in this encounter Care Teams School Photographer Relationship Specialty [place] [address] [facility] [address] [place] [address] Rheumatology 02/21/17 Lashay Downs, RN Registered Nurse Pain Management 06/17/17 Duke Do, RN Registered Nurse 09/09/17 Ngozi Petty MD Radiation Oncologist Radiation Oncology 02/05/19 Jose Roberto Marx MD Referring Physician Otolaryngology 02/05/19 documented as of this encounter
--- OUTSIDE RECORDS SUMMARY | 2024-06-14 16:48 | XMS_ITS | Encounter Summary ---
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] Procedures OK LARYNGOSCOPY,DIRCT,OP SCOP,EXC TUMR MICROLARYNGOSCOPY WITH BIOPSY/EXCISION LESION LASER KTP Nakita Herrera MD [address] [place] [address] Phone: tel: fax: Referral ID Status Reason Start Date Expiration Date Visits Re quested Visits Authorized [id number] 04/25/2022 1 1 Encounter Details Date Type Department Care Team (Late st Contact Info) Description 04/30/2022 8:10 AM CUSTOMER ASSISTANCE ASSOCIATE - 04/30/2022 9:45 AM CUSTOMER ASSISTANCE ASSOCIATE Surgery [facility] Operating Room [address] [address] [address] Nakita Herrera MD [address] [place] [address] SUSPENSION MICROLARYNGOSCOPY WITH EXCISION OF VOCAL FOLD LESION Surgery Details Date/Time Status Location OR Service Patient Class Case Class Case Type Trauma Case? 04/30/2022 8:10 AM Posted [facility] OPERATING ROOM OR Otolaryngology Outpatient Elective Panel 1 Procedure LRB Anes Op Region Wound Class Comments SUSPENSION MICROLARYNGOSCOPY WITH EXCISION OF VOCAL FOLD LESION N/A General Throat Class II - Clean Contaminated LASER KTP N/A General Throat Class II - Lul an Contaminated Surgeon Surgeon Role Service Panel Nakita Herrera MD Primary Otolaryngol ogy 1 Lui Thompson MD Resident - Assisting Otolaryng ology 1 Case Notes Microlaryngeal set, sataloff knife, dedo excalibur, OP available. KTP laser Special Needs Microlaryngeal set, sataloff knife, dedo excalibur, OP available. 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 on file Not on natalie e documented as of this encounter Last Filed Vital Signs Vital Sign Reading Time Taken Comments Blood Pressure 139/82 04/30/2022 7:05 AM CUSTOMER ASSISTANCE ASSOCIATE Pulse 62 04/30/2022 8:25 AM CUSTOMER ASSISTANCE ASSOCIATE Temperature 36.7 ??C (98.1 ??F) 04/30/2022 8:25 AM CS T Respiratory Rate 14 04/30/2022 8:25 AM CUSTOMER ASSISTANCE ASSOCIATE Oxygen Saturation 96% 04/30/2022 8:25 AM CUSTOMER ASSISTANCE ASSOCIATE Inhaled Oxygen Concentration - - Weight 99.3 kg (219 lb) 04/30/2022 6:41 AM CUSTOMER ASSISTANCE ASSOCIATE Height 185.4 cm (6' 1 ) 04/30/2022 6:41 AM CUSTOMER ASSISTANCE ASSOCIATE Body Mass Index 28.89 04/30/2022 6:41 AM CUSTOMER ASSISTANCE ASSOCIATE documented in this encounter Discharge Instructions * Discharge Instructions* Lui Thompson MD - 04/30/2022 9:58 AM CUSTOMER ASSISTANCE ASSOCIATE ENT Post Operative Discharge Instructions Procedure: Direct [...] or contact the main office line at [phone]. Follow up: You should follow up in Nakita Eddy MD's clinic as scheduled below. [address] [address] OTHER FOLLOW UP: 1. PCP - for management of all chronic illnesses No future appointments. Phone numbers Appointment Scheduling / During Regular Business Hours (8am-5pm Saturday through Saturday): Emergent Concerns after hours or Weekends: Call and ask for the ENT resident radiation protection specialist. Questions: If you have any concerns or questions, or develop worrisome symptoms such as worsening pain or swelling, bleeding, fever, or vomiting, call your doctor. OMER ASSISTANCE ASSOCIATE OMER ASSISTANCE ASSOCIATE OMER ASSISTANCE ASSOCIATE documented in this encounter Medications at Time of Discharge finasteride (PROSCAR) 5 mg tabletIndications :benign prostatic hyperplasia with lower urinary tract sx Take 1 tablet (5 mg total) by mouth cork floor installer before breakfast multivitamin capsuleIndication s:Vitamin Deficiency Prevention [...] spray Administer 1 spray into each nostril cork floor installer before breakfast 04/12/2022 3 lansoprazole (PREVACID) 30 mg capsule Take 30 mg by mouth 12/19/2021 2 methotrexate 2.5 mg tablet Take 6 tablets (15 mg total) by mouth once a week saturday02/02/2020 3 montelukast (SINGULAIR) 10 mg tablet Take 10 mg by mouth nightly 04/12/2022 3 omeprazole (PriLOSEC) 20 mg capsule Take 2 capsules (40 mg total) by mouth cork floor installer before breakfast 3 rOPINIRole (REQUIP) 1 mg [...] Procedure(s): MICROLARYNGOSCOPY WITH BIOPSY/EXCISION LESION LASER KTP OMER ASSISTANCE ASSOCIATE Source Note - Nakita Herrera MD - 04/25/2022 9:00 AM CUSTOMER ASSISTANCE ASSOCIATE PATIENT NAME: Pasquale Sanchez : 1945 DOS: [...] for his . 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) Depression Gastric reflux Gastroesophageal reflux disease [...] OTHER MEDICAL hemorroids; Comments: [facility] [place] HX OTHER MEDICAL bladder infection HX OTHER MEDICAL kidney stone Low back pain Malignant neoplasm of prostate ([facility]) ([facility]) 1998 prostate Migraine Rheumatoid arthritis ([facility]) Past Surgeries: has a past surgical history that includes Biceps Tenodesis (Left, 1969'); Ear Surgery (Left, 1969's); Orchiectomy (Right, ); Vasectomy (); Rotator cuff repair (Right, ); Lithotripsy ( - [id number]); Laryngoscopy (Right, 01/09/2019); Laryngoscopy (Right, 02/16/2019); Shouldersurgery [...] in this encounter. DISPOSITION:OR Dariana Herrera MD Senior Attorney [facility] Division of Laryngology Department of Otolaryngology--Head & Neck Surgery OMER ASSISTANCE ASSOCIATE documented in this encounter Miscellaneous Notes * [...] participated in the entirety of the procedure OMER ASSISTANCE ASSOCIATE documented in this encounter Plan of Treatment [...] SURGICAL PATHOLOGY Routine 04/30/2022 9: 29 AM CUSTOMER ASSISTANCE ASSOCIATE Lesion of vocal fold LASER KTP 04/30/2022 8:41 AM CUSTOMER ASSISTANCE ASSOCIATE Lesion of vocal fold Case Notes Microlaryngeal set, sataloff knife, dedo excalibur, OP available. KTP laser Special Needs Microlaryngeal set, sataloff knife, dedo excalibur, OP available. MICROLARYNGOSCOPY WITH BIOPSY/EXCISION LESION 04/30/2022 8:41 AM CUSTOMER ASSISTANCE ASSOCIATE Lesion of vocal fold Case Notes Microlaryngeal set, sataloff knife, dedo excalibur, OP available. KTP laser Special Needs Microlaryngeal set, sataloff knife, dedo excalibur, OP available. documented in this encounter Results * Surgical pathology (04/30/2022 9:29 AM CUSTOMER ASSISTANCE ASSOCIATE) Tissue (Vocal Cord, Biopsy) 04/30/2022 9:29 AM CUSTOMER ASSISTANCE ASSOCIATE Tissue (Vocal Cord, Biopsy) 04/30/2022 9:30 AM CUSTOMER ASSISTANCE ASSOCIATE Narrative PATHOLOGY [facility] - 05/01/2022 11:22 AM CUSTOMER ASSISTANCE ASSOCIATE EPIC results best viewed via link to PDF [facility] Surgical Pathology [place] [address] Note to Patients: This report may contain [...] : ??1945 (Age: 76) Address: ??[address] [place], [place] ??[address] Hospital #: ??[id number] Taken:04/30/2022 Received:04/30/2022 Reported: 05/01/2022 Patient Type: BWC EP SAME Client ?[facility] Service: Surgery Location: Physician(s): ??Tree Lopez PA Diagnosis: A. ??Larynx, right vocal cord, biopsy ? 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 ??Larynx, right posterior vocal cord, biopsy ? 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 Tejal Rodrigues M.D. Report Electronically Reviewed and Signed Out By ??Tejal Rodrigues M.D. 05/01/2022 11:22:26 Microscopic Description and Comment: Microscopic examination substantiates the above cited diagnosis. Microscopic slide review and interpretation for this case was performed at [facility], Department of Surgical Pathology, [address] [facility], [place] [id number], ??[facility] ??[address] ?? CLIA # [id number]. Kimberly Jones M.D. History: The patient is a 76-year-old [...] 0.1 cm). ?? Labeled B1. Jar 0. cnew04/30/2022 10:47 PA(s): SONIA Gutiérrez, CT ([facility]) By this signature, I attest that the above diagnosis is based upon my personal examination of the slides(and/or other material). Addenda/Procedures The performance characteristics of some immunohistochemical stains, fluorescence in-situ hybridization tests and immunophenotyping by flow cytometry cited in this report (if any) were determined by the Surgical Pathology and Flow Cytometry Departments at [facility] as part of an ongoing quality control assistant program and in compliance with federally mandated [...] Surgical Pathology and Flow Cytometry Departments of [facility]. ??It has not been cleared or approved by the U. S. Food and Drug Administration. IMAGES AND SCANNED DOCUMENTS, IF INCLUDED, ONLY VIEWABLE IN PDF VERSION OF REPORT Nakita Herrera MD LAB PATHOLOGY ORDERA BLES Final Result PATHOLOGY [facility] [phone] documented in this encounter Visit Diagnoses Diagnosis Lesion of vocal fold- Primary Malignant neoplasm of prostate (HCC) Malignant neoplasm of prostate Lesion of vocal fold documented in this encounter Admitting Diagnoses Diagnosis [...] to floor. New Bag 04/30/2022 9:35 AM CUSTOMER ASSISTANCE ASSOCIATE Rate/Dose Verify 04/30/2022 8:36 AM CUSTOMER ASSISTANCE ASSOCIATE 30 mL/h r New Bag 04/30/2022 7:21 AM CUSTOMER ASSISTANCE ASSOCIATE 30 mL/hr 30 mL/hr oxymetazoline (AFRIN) 0.05 % nasal spray As needed, Starting on Sat04/30/22 at 0923, Intra-Op Given 04/30/2022 9:23 AM CUSTOMER ASSISTANCE ASSOCIATE 30 mL Surgical Site sodium chloride 0.9% irrigation As needed, Starting on Sat04/30/22 at 0854, Intra-Op Given 04/30/2022 8:54 AM CUSTOMER ASSISTANCE ASSOCIATE 1,000 mL Surgical Site documented in this [...] 1 tablet (5 mg total) by mouth cork floor installer before breakfast rOPINIRole (REQUIP) 1 mg tablet Take 2 tablets (2 mg total) by mouth nightly 3 omeprazole (PriLOSEC) 20 mg capsule Take 2 capsules (40 mg total) by mouth cork floor installer before breakfast 3 added in this encounter Active and Recently Administered Medications Times are shown in CUSTOMER ASSISTANCE ASSOCIATE. Continuous Medication Order 04/28/2022 04/29/2022 04/30/2022 Lactated [...] Use as 1st line for Inpatients at [facility].?Use Use as second line for OC [...] 2 04/30/2022 Lactated Ringer's (LR) infusion 2 meperidine (DEMEROL) preserv ative free injection 12.5 mg 2 04/30/2022 naloxone (NARCAN) 0.4 mg/mL injection 0.04-0.4 mg 1 04/30/2022 scopolamine patch 72 hour 1 patch 1 022 sodium chloride 0.9% flush 0.5-20 mL 1 04/04 Discharge Count Last Ordered Date First Orde red Date DISCHARGE PATIENT 1 04/30/2022 documented in this encounter Care Teams Brine Well Operator Relationship Specialty [place] [address] [facility] [address] [place] [address] Rheumatology 02/21/17 Lashay Downs, RN Registered Nurse Pain Management 06/17/17 Duke Do, RN Registered Nurse 09/09/17 Ngozi Petty MD Radiation Oncologist Radiation Oncology 02/05/19 Jose Roberto Marx MD Referring Physician Otolaryngology 02/05/19 documented as of this encounter
--- OUTSIDE RECORDS SUMMARY | 2024-06-14 16:48 | XMS_ITS | Encounter Summary ---
Author Organization [facility] Address [address] [place] [address] Phone Care Team Providers Care Bilingual Medical Assistant Name Role Phone Criss Blanco MD Unavailable Lashay Downs RN Unavailable Unavailab Duke Goodwin RN Unavailable UnavailNgozi Husain MD Unavailable [phone] Jose Roberto Marx MD Unavailable [phone] Reason for Visit * Reason Comments Squamous Cell Carcinoma * Consultation (Routine) - Closed Specialty Diagnoses / Procedures Referred By Alcira forrest Referred To Contact Otolaryngology Diagnoses 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) Dysphonia Viraj Romeo, ZOILA [address] [place] [address] Phone: tel: fax: [facility] (All Locations) Referral ID Status Reason Start Date Expiration Date V isits Requested Visits Authorized [id number] Closed Specialty Services Required 06/23/2021 09/14/2021 6 6 Encounter Details Date Type Department Care Team (Late st Contact Info) Description 09/01/2021 10:20 AM CDT Office Visit [facility] ENT [address] [facility] [address] [place] [address] Nathanael Valdez MD [address] [facility] [address] Squamous cell carcinoma of larynx (CMS/HCC) ([facility]); Dysphonia Social History Tobacco Use Types Packs/Day [...] on file Legal Sex Male 12:56 AM WILD OYSTER HARVESTER Gender Identity Not on file Sexual Orientation Not on file 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 Squamous Cell Carcinoma Subjective Samuel Sanchez is a 76 y.o. male who presents today for follow-up of his T1N0M0 SCCa of the right glottis. He is doing well and has no new issues. He denies dysphagia, odynophagia, referred otalgia, or hemoptysis. Oncology History Squamous cell carcinoma of larynx (CMS/HCC) ([facility]) 01/30/2019 Initial Diagnosis Squamous cell carcinoma of larynx (CMS/HCC) Objective Physical Exam Constitutional: He is oriented [...] stridor. No respiratory distress. Abdominal: Normal appearance. Lymphadenopathy: Right cervical: No superficial cervical, no deep cervical and no posterior cervical adenopathy present. Left cervical: No superficial cervical, no deep cervical and no posterior cervical adenopathy present. Neurological: He is alert and oriented to [...] and adduction of the bilateral vocal folds. No lesions are seen on the glottis. During phonation, glottic closure is complete. The mucosal wave is intact and symmetric. There ismoderate supraglottic hyperfunction present on exam. The scope was then removed from the patient's nose, and he tolerated the procedure well. 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 Continue routine surveillance. No orders of the defined types were placed in this encounter. Disposition: No follow-ups on file. Nathanael Valdez MD, FACS Client Architect [facility] Division of Laryngology Department of Otolaryngology--Head & Neck Surgery Portions of this note were dictated using M*Modal Fluency Direct. Ointment Mill Tender variances may occur. documented in this encounter Miscellaneous Notes * Assessment & Plan Note - Nathanael Valdez MD - 09/01/2021 10:19 AM CDT Associated Problem(s): Squamous cell carcinoma [...] (HCC) Malignant neoplasm of larynx, unspecified site Dysphonia documented in this encounter Orders Outpatient Referral Count Last Ordered Date st Ordered Date AMB REFERRAL TO ENT 1 09/01/2021 documented in this encounter Care Teams Bilingual Medical Assistant Relationship Specialty [place] [address] [facility] [address] [place] [address] Rheumatology 02/21/17 Lashay Downs, GAY Registered Nurse Pain Management 06/17/17 Duke Do, GAY Registered Nurse 09/09/17 Ngozi Petty MD Radiation Oncologist Radiation Oncology 02/05/19 Jose Roberto Marx MD Referring Physician Otolaryngology 02/05/19 documented as of this encounter
--- OUTSIDE RECORDS SUMMARY | 2024-06-14 16:48 | XMS_ITS | Encounter Summary ---
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) Viraj Romeo, ZOILA [address] [place] [address] Phone: tel: fax: [facility] (All Locations) Referral ID Status Reason Start Date Expiration Date V isits Requested Visits Authorized [id number] Closed Specialty Services Required 03/20/2022 06/02/2023 12 12 Encounter Details Date Type Department Care Team (Late st Contact Info) Description 04/25/2022 9:00 AM DIRECTOR OF RESEARCH Office Visit [facility] ENT [address] [facility] [address] [place] [address] Nakita Herrera MD [address] [place] [address] Lesion of vocal fold (Primary Dx); History of laryngeal cancer Social History Tobacco Use Types Packs/Day Years [...] on file Legal Sex Male 12:56 AM DIRECTOR OF RESEARCH Gender Identity Not on file Sexual Orientation Not on file 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 OUTCOMES: VCI-11 RSI-21 GFI-7 [id number] REVIEW OF SYSTEMS: A complete past medical [...] kidney Nephrolithiasis Cancer of vocal cord (CMS/HCC) ([facility]) Depression Gastric reflux Gastroesophageal reflux disease acid [...] OTHER MEDICAL hemorroids; Comments: [facility] [place] HX OTHER MEDICAL bladder infection HX OTHER MEDICAL kidney stone Low back pain Malignant neoplasm of prostate (CMS/HCC) ([facility]) 1998 prostate Migraine Rheumatoid arthritis ([facility]) Past Surgeries: has a past surgical history that includes Biceps Tenodesis (Left, 1969's); Ear Surgery (Left, 1969's); Orchiectomy (Right, ); Vasectomy (); Rotator cuff repair (Right, ); Lithotripsy (s - 2408-3417); Laryngoscopy (Right, 01/09/2019); Laryngoscopy (Right, 02/16/2019); Shouldersurgery [...] in this encounter. DISPOSITION:OR Dariana Herrera MD Asset Protection Representative [facility] Division of Laryngology Department of Otolaryngology--Head & Neck Surgery CTOR OF RESEARCH documented in this encounter Plan of Treatment [...] Diagnoses Diagnosis Lesion of vocal fold- Primary History of laryngeal cancer Personal history of malignant neoplasm of larynx documented in this encounter Orders Case Request Count Last Ordered Date First Orde red Date CASE REQUEST OPERATING ROOM 1 04/25/2022 documented in this encounter Care Teams Director Of Trauma Relationship Specialty [place] [address] [facility] [address] [place] [address] Rheumatology 02/21/17 Lashay Downs, RN Registered Nurse Pain Management 06/17/17 Duke Do, RN Registered Nurse 09/09/17 Ngozi Petty MD Radiation Oncologist Radiation Oncology 02/05/19 Jose Roberto Marx MD Referring Physician Otolaryngology 02/05/19 documented as of this encounter
--- OUTSIDE RECORDS SUMMARY | 2024-06-14 16:49 | XMS_ITS | Encounter Summary ---
Author Organization [facility] Healthcare Address [address] [place] [address] Care Team Providers Care Gas Engine Operator Compressors Name Role Phone Criss Blanco MD Unavailable Lashay Downs RN Unavailable Unavailab Duke Goodwin RN Unavailable UnavailNgozi Husain MD Unavailable [phone] Jose Roberto Marx MD Unavailable [phone] Encounter Details Date Type Department Care Team (Late st Contact Info) Description 08/15/2020 Telephone [facility] [address] [address], [address] [place] [id number] Kaykay Reyes MD [address] [facility] [address] [place] [address] Social History Tobacco Use Types Packs/Day Years Used Date Smoking Tobacco: Former Cigarettes 1.5 37 1 959 - 1996 Smokeless Tobacco: Never Alcohol Use Standard Drinks/Week Comments Yes 3 (1 standard drink = 0.6 oz pur e alcohol) AUDIT-C Answer Date Recorded Frequency of Alcohol Consumption 2-3 times a wee k 01/30/2019 Average Number of Drinks Not on file 019 Frequency of Binge Drinking Weekly 01/03 Sex and Gender Information Value Date Recorded Sex Assigned at Not on file Legal Sex Male 12:56 AM PLASTER MOLD MAKER Gender Identity Not on file Sexual Orientation Not on file 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 documented as of this encounter Visit Diagnoses Not on filedocumented in this encounter Care Teams Gas Engine Operator Compressors Relationship Specialty [place] [address] [facility] [address] [place] [address] Rheumatology 02/21/17 Lashay Downs, RN Registered Nurse Pain Management 06/17/17 Duke Do, GAY Registered Nurse 09/09/17 Ngozi Petty MD Radiation Oncologist Radiation Oncology 02/05/19 Jose Roberto Marx MD Referring Physician Otolaryngology 02/05/19 documented as of this encounter
--- OUTSIDE RECORDS SUMMARY | 2024-06-14 16:49 | XMS_ITS | Encounter Summary ---
Author Organization [facility] Address [address] [place] [address] Phone Care Team Providers Care Semiconductor Packages Tester Name Role Phone Criss Blanco MD Unavailable Lashay Downs RN Unavailable Unavailab Duke Goodwin RN Unavailable UnavailNgozi Husain MD Unavailable [phone] Jose Roberto Marx MD Unavailable [phone] Reason for Referral * Consultation (Routine) - Closed Specialty Diagnoses / Procedures Referred By Alcira forrest Referred To Contact Otolaryngology Diagnoses Dysphonia Viraj Romeo PA [address] [place] [address] Phone: tel: fax: [facility] (All Locations) Referral ID Status Reason Start Date Expiration Date V isits Requested Visits Authorized [id number] Closed Specialty Services Required 06/23/2020 12/20/2020 99 99 Question Answer Please select the performing region: [facility] (All Locations) [167] # of visits: 1 OUND COATING MACHINE OFFBEARER Reason for Visit * Reason Comments surveillance * Consultation (Routine) - Closed Specialty Diagnoses / Procedures Referred By Alcira forrest Referred To Contact Otolaryngology Diagnoses Dysphonia Viraj Romeo PA [address] [place] [address] Phone: tel: fax: [facility] (All Locations) Referral ID Status Reason Start Date Expiration Date V isits Requested Visits Authorized [id number] Closed Specialty Services Required 06/23/2020 12/20/2020 99 99 Encounter Details Date Type Department Care Team (Late st Contact Info) Description 08/09/2020 3:40 PM COMPOUND COATING MACHINE OFFBEARER Office Visit [facility] ENT [address] [facility] [address] [place] [id number] Nathanael Valdez MD [address] [place] [address] Dysphonia (Primary Dx); Squamous cell carcinoma of larynx (CMS/HCC) Social History Tobacco Use Types Packs/Day Years [...] on file Legal Sex Male 12:56 AM COMPOUND COATING MACHINE OFFBEARER Gender Identity Not on file Sexual Orientation Not on file 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 surveillance Subjective Samuel Sanchez is a 75 y.o. 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 He is doing well and has no new issues. He denies dysphagia, odynophagia, referred otalgia, or hemoptysis. 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 No glottic lesions are seen. The mobility demonstrates symmetric [...] Disposition: Return in about 8 weeks (around 10/04/2020) for next scheduled voice follow up with video. Nathanael Valdez MD, FACS Lead Fabricator [facility] Division of Laryngology Department of Otolaryngology--Head & Neck Surgery Portions of this note were dictated using M*Modal Fluency Direct. Retirement Assistant variances may occur. OUND COATING MACHINE OFFBEARER documented in this encounter Miscellaneous Notes * Assessment & Plan Note - Nathanael Valdez MD - 08/09/2020 3:55 PM COMPOUND COATING MACHINE OFFBEARER Associated Problem(s): 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) No evidence of disease on examination today. Continue routine surveillance. OUND COATING MACHINE OFFBEARER documented in this encounter Plan of Treatment Scheduled Referrals Name Type Priority Associated Diagnoses Order Schedule Ambulatory referral to ENT Outpatient Referral Routine Dysphonia Expected: 08/09/2020 (Approximate), Expires: 07/26/2021 documented as of this encounter Goals Goal [...] as of this encounter Visit Diagnoses Diagnosis Dysphonia- Primary 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) Malignant neoplasm of larynx, unspecified site documented in this encounter Care Teams Semiconductor Packages Tester Relationship Specialty [place] [address] [facility] [address] [place] [address] Rheumatology 02/21/17 Lashay Downs, RN Registered Nurse Pain Management 06/17/17 Duke Do, RN Registered Nurse 09/09/17 Ngozi Petty MD Radiation Oncologist Radiation Oncology 02/05/19 Jose Roberto Marx MD Referring Physician Otolaryngology 02/05/19 documented as of this encounter
--- OUTSIDE RECORDS SUMMARY | 2024-06-14 16:49 | XMS_ITS | Encounter Summary ---
Author Organization [facility] Address [address] [place] [address] Care Team Providers Care Field Party Manager Name Role Phone Criss Blanco MD Unavailable Lashay Downs RN Unavailable Unavailab Duke Goodwin RN Unavailable UnavailNgozi Husain MD Unavailable [phone] Jose Roberto Marx MD Unavailable [phone] Encounter Details Date Type Department Care Team (Late st Contact Info) Description 10/05/2020 Orders Only [facility] Testing Site - [address] [place] [address] Nathanael Valdez MD [address] [place] [address] Preop testing (Primary Dx) Social History Tobacco Use Types [...] on file Legal Sex 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 Date of Px/chemo/treatment/placement/transfer 10/13/2020 ?? Testing site patient will be sent to: [facility] ?? Date testing requested: 10/10/2020 ?? Testing: COVID/FLU ?? Does the patient currently work in a healthcare facility with direct patient contact? Unknown ?? Is the patient a resident of a congregate care or living setting? Unknown ?? Is the patient ? No ?? Please select the performing region: [facility] documented in this encounter Plan of Treatment [...] as of this encounter Visit Diagnoses Diagnosis Preop testing- Primary Unspecified pre-operative examination documented in this encounter Care Teams Field Party Manager Relationship Specialty [place] [address] [facility] [address] [place] [address] Rheumatology 02/21/17 Lashay Downs, RN Registered Nurse Pain Management 06/17/17 Duke Do, RN Registered Nurse 09/09/17 Ngozi Petty MD Radiation Oncologist Radiation Oncology 02/05/19 Jose Roberto Marx MD Referring Physician Otolaryngology 02/05/19 documented as of this encounter
--- OUTSIDE RECORDS SUMMARY | 2024-06-14 16:49 | XMS_ITS | Encounter Summary ---
Author Organization [facility] Address [address] [place] [address] Phone Care Team Providers Care Electronics Utility Worker Name Role Phone Criss Blanco MD Unavailable Lashay Downs RN Unavailable Unavailab Duke Goodwin RN Unavailable UnavailNgozi Husain MD Unavailable [phone] Jose Roberto Marx MD Unavailable [phone] Reason for Visit * Reason Onset Date Comments Appointment 03/14/2020 Encounter Details Date Type Department Care Team (Late st Contact Info) Description 03/14/2020 Telephone [facility] ENT [address] [facility] [address] [place] [address] Marisol Madrid, GAY Appointment Social History Tobacco Use Types Packs/Day Years [...] on file Legal Sex Male 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 Valdez. Ok with firstweek of April. Patient voiced no voice or airway issues or concerns * Telephone Encounter - Marisol Madrid LPN - 03/14/2020 11:28 AM CDT Called and spoke with patient regarding 03/15/[address] Valdez. She will havepatient return my call to either reschedule with another provider covering for Dr. Valdez in his absence or wait until he can see Dr. Valdez. documented in this encounter Plan of Treatment Not on file documented as of this encounter Visit Diagnoses Not on filedocumented in this encounter Care Teams Electronics Utility Worker Relationship Specialty [place] [address] [facility] [address] [place] [address] Rheumatology 02/21/17 Lashay Downs, GAY Registered Nurse Pain Management 06/17/17 Duke Do, GAY Registered Nurse 09/09/17 Ngozi Petty MD Radiation Oncologist Radiation Oncology 02/05/19 Jose Roberto Marx MD Referring Physician Otolaryngology 02/05/19 documented as of this encounter
--- OUTSIDE RECORDS SUMMARY | 2024-06-14 16:49 | XMS_ITS | Encounter Summary ---
Author Organization [facility] Address [address] [place] [address] Care Team Providers Care Coal Wheeler Name Role Phone Criss Blanco MD Unavailable Lashay Downs RN Unavailable Unavailab Duke Goodwin RN Unavailable UnavailNgozi Husain MD Unavailable [phone] Jose Roberto Marx MD Unavailable [phone] Encounter Details Date Type Department Care Team (Latest Contact Info) Description 04/18/2020 1:18 PM KITCHEN HELPER - 04/18/2020 3:01 PM KITCHEN HELPER Hospital Encounter [facility] Operating Room [address] [place] [address] Nathanael Valdez MD [address] [place] [address] Discharge Disposition: Discharge to home or self [...] on file Legal Sex Male 12:56 AM KITCHEN HELPER Gender Identity Not on file Sexual Orientation Not on file 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 Not on file Not on natalie e documented as of this encounter Last Filed Vital Signs Vital Sign Reading Time Taken Comments Blood Pressure 135/86 04/18/2020 2:58 PM KITCHEN HELPER Pulse 67 04/18/2020 2:58 PM KITCHEN HELPER Temperature 36.5 ??C (97.7 ??F) 04/18/2020 2:50 PM CS T Respiratory Rate 20 04/18/2020 2:54 PM KITCHEN HELPER Oxygen Saturation 97% 04/18/2020 2:58 PM KITCHEN HELPER Inhaled Oxygen Concentration - - Weight - - Height - - Body Mass Index - - documented in this encounter Discharge Diagnoses Diagnosis Malignant neoplasm of larynx, unspecified (HCC) - MALIGNANT NEOPLASM OF LARYNX, UNSPECIFIED documented in this encounter Medications at Time of Discharge vit A/vit C/vit E/zinc/copper (PRESERVISION AREDS ORAL) Take 1 capsule by mouth 2 (two) times a day biotin 5,000 mcg tablet,disintegra tingIndications:h ealth Take 5,000 mcg by mouth every morning [address] (NexIUM) 20 mg capsuleIndication s:Treatment of Non-Bleeding Gastric Disorder Take 20 mg by mouth daily before breakfast 1 famotidine (PEPCID) 40 mg tablet Take 1 tablet (40 mg total) by mouth nightly 03/28/2020 3 methotrexate 2.5 mg tablet Take 6 tablets (15 mg total) by mouth once a week saturday02/02/2020 3 omeprazole (PriLOSEC) 40 mg capsuleIndication s:GERD Take 40 mg by mouth every morning 03/22/2020 1 tamsulosin (FLOMAX) 0.4 mg extended release capsuleIndication s:benign prostatic hyperplasia with lower urinary tract sx Take 0.4 mg by mouth every morning 2 tiZANidine (ZANAFLEX) 4 mg tabletIndications :Muscle Spasm Take 4 mg by mouth every 6 (six) hours as needed 03/22/2020 2 documented as of this encounter Discharge Disposition Disposition Code Departure Means Destination Discharge to home or self care documented in this encounter H&P Notes * Mima Trevino MD - 04/18/2020 2:24 PM CST I have reviewed the H&P, examined the patient, and endorse the findings as written. Plan of Care : Based on the above findings, I consider Samuel Sanchez to be an acceptable risk for : Procedure(s): Flexible Laryngoscopy with KTP laser photoablation Cosigned by Nathanael Valdez MD at 04/18/2020 2:52 PM KITCHEN HELPER HEN HELPER HEN HELPER Source Note - Nathanael Valdez MD - 04/08/2020 9:00 AM KITCHEN HELPER PATIENT NAME: Samuel Sanchez : 1945 DOS: 04/08/2020 REFERRING PHYSICIAN: ZOILA Kuo CHIEF COMPLAINT: Chief Complaint Patient presents with ??? Follow-up larynx cancer INTERVAL HISTORY: Samuel Sanchez is a 74 y.o. 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 He is doing well and has no new issues. He denies dysphagia, odynophagia, referred otalgia, or hemoptysis. OUTCOMES: GFI: 0 VHI-10: 0 VCI: 0 RSI: 9 REVIEW OF SYSTEMS: Review of Systems Constitutional: Negative for appetite change, chills, fever and unexpected weight change. HENT: Negative for congestion, dental problem, drooling, ear discharge, ear pain, facial swelling, hearing loss, mouth sores, nosebleeds, postnasal drip, rhinorrhea, sinus pressure, sinus pain, sneezing, sore throat, tinnitus, trouble swallowing and voice change. Eyes: Negative for pain and visual disturbance. Respiratory: Negative for cough, chest tightness and shortness of breath. Cardiovascular: Negative for chest pain and palpitations. Gastrointestinal: Negative for abdominal pain, blood in stool, diarrhea, nausea and vomiting. Endocrine: Negative for cold intolerance and heat intolerance. Genitourinary: Negative for difficulty urinating, dysuria, hematuria and urgency. Musculoskeletal: Negative for arthralgias and gait problem. Skin: Negative for rash. Neurological: Negative for dizziness, tremors, seizures, syncope, weakness and headaches. Psychiatric/Behavioral: Negative for confusion, dysphoric mood and hallucinations. EXAM: Physical Exam Vitals signs reviewed. Constitutional: General: He is not in acute distress. Appearance: Normal appearance. He is well-developed. He is not ill-appearing. HENT: Head: Normocephalic and atraumatic. No abrasion, contusion, right periorbital erythema or left periorbital erythema. Hair is normal. Jaw: No trismus or pain on movement. Salivary Glands: Right salivary gland is not diffusely enlarged or tender. Left salivary gland is not diffusely enlarged or tender. Right Ear: Hearing and external ear normal. Left Ear: Hearing and external ear normal. Nose: Nose normal. No nasal deformity, septal deviation, mucosal edema or rhinorrhea. Right Turbinates: Not enlarged, swollen or pale. Left Turbinates: Not enlarged, swollen or pale. Mouth/Throat: Lips: [place]. No lesions. Mouth: Mucous membranes are moist. No oral lesions. Dentition: Normal dentition. Tongue: No lesions. Palate: No mass and lesions. Pharynx: Oropharynx is clear. Uvula midline. No oropharyngeal exudate or posterior oropharyngeal erythema. Tonsils: No tonsillar exudate. Eyes: General: Lids are normal. Extraocular Movements: Extraocular movements intact. Conjunctiva/sclera: Conjunctivae normal. Neck: Musculoskeletal: Full passive range of motion without pain and neck supple. No erythema, neck rigidity or muscular tenderness. Thyroid: No thyroid mass or thyromegaly. Trachea: Trachea and phonation normal. No tracheal tenderness or tracheal deviation. Comments: The patient's voice sounds normal. The pitch is expected for age and gender. Pulmonary: Effort: Pulmonary effort is normal. No tachypnea, accessory muscle usage or respiratory distress. Breath sounds: No stridor. Musculoskeletal: Normal range of motion. Lymphadenopathy: Head: Right side of head: No submental, submandibular, tonsillar, preauricular, posterior auricular or occipital adenopathy. Left side of head: No submental, submandibular, tonsillar, preauricular, posterior auricular or occipital adenopathy. Cervical: Right cervical: No superficial, deep or posterior cervical adenopathy. Left cervical: No superficial, deep or posterior cervical adenopathy. Skin: General: Skin is warm and dry. Neurological: Mental Status: He is alert and oriented to person, place, and time. Cranial Nerves: Cranial nerves are intact. No cranial nerve deficit. Motor: Motor function is intact. No tremor. Coordination: Coordination normal. Gait: Gait normal. Psychiatric: Mood and Affect: Mood and affect normal. Behavior: Behavior normal. LARYNGEAL EXAM: Flexible videostroboscopy was performed today by me using scope #loaner in order to evaluate the laryngeal biomechanics and vocal fold oscillatory properties that cannot otherwise be appreciated on flexible fiberoptic or indirect mirror examination. The bilateral nasal cavities were anesthetized with 4% topical lidocaine and oxymetazoline, and the distal chip transnasal laryngoscope was introduced through the left nasal cavity and advanced into the oropharynx. The base of tongue, vallecula, supraglottal, and hypopharyngeal structures are anatomically normal in appearance. The mobility demonstrates symmetric abduction and adduction of the bilateral true vocal folds. There are 3 areas of leuko plakia present, 1 on the infraglottic surface of the right true vocal fold, and 2 on the free edge of the left true vocal fold. During phonation, glottic closure is complete. The mucosal wave is intact and chasing. There is mild supraglottic hyperfunction present on exam. The scope was then removedfrom the patient's nose, and he tolerated the procedure well. ASSESSMENT/PLAN: Squamous cell carcinoma of larynx (CMS/HCC) There are new areas of leukoplakia on the infraglottic surface of the mid right true vocal fold, but now 2 patches on the mid membranous left vocal fold, which are very distinct from where his prior lesions were excised. I discussed with the patient that he may very likely have a field of dysplasiaor carcinoma in situ as the result of his prior heavy smoking history. I discussed with him optionsto include proceeding with radiation verses continued ablation [...] should really consider the possibility of radiation. No orders of the defined types were placed in this encounter. DISPOSITION: No follow-ups on file. Nathanael Valdez MD, FACS Propeller Inspector [facility] Division of Laryngology Department of Otolaryngology--Head & Neck Surgery Portions of this note were dictated using M*Modal Fluency Direct. Blanching Machine Operator variances may occur. HEN HELPER documented in this encounter Miscellaneous Notes * Op Note - Nathanael Valdez MD - 04/18/2020 2:45 PM CST PATIENT NAME: Samuel Sanchez : 1945 DATE OF SURGERY: 04/18/2020 ANESTHESIA: Local Surgeon(s) and Role: * Nathanael Valdez MD - Primary * Mima Trevino MD - Resident - Assisting PRE-OPERATIVE DIAGNOSIS: Pre-op Diagnosis * 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] POST-OPERATIVE DIAGNOSIS: Post-op Diagnosis * 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] NAME OF PROCEDURE: Bilateral Awake KTP laser photoablation of vocal fold lesion OPERATIVE FINDINGS: Leukoplakia mid right vocal fold Two areas of leukoplakia on free edge of left vocal fold INDICATIONS FOR PROCEDURE: The patient is a 74 y.o. 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 The risks and benefits of the procedure, including, but not limited to, epistaxis, neck discomfort, gagging, coughing, changes to the voice, and the need for future procedures were disc ussed with the patient. He agrees and wishes to proceed. DESCRIPTION OF PROCEDURE: In the preoperative holding area, the bilateral nasal cavities were anesthetized with 4% topical lidocaine and oxymetazoline. The patient was brought back to the operating room and sat up in the examchair. After the appropriate timeouts were performed, the working channel, flexible laryngoscope was introduced through the left nasal cavity and advanced into the oropharynx. While been asked to phonate, 10 mL's of 2% topical lidocaine were then dripped onto the patient's larynx for anesthetization. The scope was then withdrawn and a 0.4 mm KTP laser fiber was inserted through the channel and stripped at the tip. The flexible laryngoscope was then re-inserted. On settings of 30 garcia, 15 ms pul se-width, and 2 pulses per second, the lesion was initially treated in a non- contact mode until thetissue was appropriately blanched. I then switched to contact mode to help remove the treated tissue from the underlying laryngeal tissue. Once all lesions were completely removed in this fashion, the scope was removed from the patient's nose, and he tolerated the procedure well. EBL: Minimal IV Fluids: None Specimens: None Condition: Stable to the PACU Attestation: I, Nathanael Valdez MD, was present and participated in the entirety of the procedure HEN HELPER documented in this encounter Plan of Treatment Not on file documented as of this encounter Procedures Procedure Name Priority Date/Time Associated Diagnosis Comments LASER KTP 04/18/2020 2:39 PM KITCHEN HELPER Squamous cell carcinoma of larynx (CMS/HCC) Special Needs KTP laser documented in this encounter Visit Diagnoses Diagnosis 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)- Primary Malignant neoplasm of larynx, unspecified site documented in this encounter Admitting Diagnoses Diagnosis 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) Malignant neoplasm of larynx, unspecified site documented in this encounter Active and Recently Administered Medications Times are shown in KITCHEN HELPER. PRN Medication Order 04/16/2020 04/17/2020 04/18/2020 lidocaine (XYLOCAINE) 5 mL in sodium chloride 0.9% 5 mL topical solution (CANCELED) As needed, Starting on Sat04/18/20 at 1442, Intra-Op 1442 (Given - Provid er: Nathanael Valdez MD) oxymetazoline (AFRIN) 0.05 % nasal spray (CANCELED) As needed, Starting on Sat04/18/20 at 1443, Intra-Op 1443 (Given - Provid er: Nathanael Valdez MD - Comment: with 4% lidocaine) documented in this encounter Orders Medications Ordered That Quinn ht Not Have Been Administered Count Last Ordered Date First Ordered Date lidocaine (XYLOCAINE) 5 mL i n sodium chloride 0.9% 5 mL topical solution 1 04/18/2020 oxymetazoline (AFRIN) 0.05 % nasal spray 1 04/18/2020 Diet Count Last Ordered Date First Orde red Date ADULT DISCHARGE DIET 1 04/18/2020 Nursing Count Last Ordered Date First Orde red Date DISCHARGE ACTIVITY 1 04/18/2020 DISCHARGE CALL PROVIDER 2 04/18/2020 documented in this encounter Care Teams Coal Wheeler Relationship Specialty [place] [address] [facility] [address] [place] [address] Rheumatology 02/21/17 Lashay Downs, RN Registered Nurse Pain Management 06/17/17 Duke Do, RN Registered Nurse 09/09/17 Ngozi Petty MD Radiation Oncologist Radiation Oncology 02/05/19 Jose Roberto Marx MD Referring Physician Otolaryngology 02/05/19 documented as of this encounter
--- OUTSIDE RECORDS SUMMARY | 2024-06-14 16:49 | XMS_ITS | Encounter Summary ---
Author Organization [facility] Healthcare Address [address] [place] [address] Care Team Providers Care Automation Qtp Tester Name Role Phone Criss Blanco MD Unavailable Lashay Downs RN Unavailable Unavailab Duke Goodwin RN Unavailable UnavailNgozi Husain MD Unavailable [phone] Jose Roberto Marx MD Unavailable [phone] Reason for Visit * Reason Onset Date Comments medication question 08/24/2020 Encounter Details Date Type Department Care Team (Late st Contact Info) Description 08/24/2020 Telephone [facility] Management [facility] at [facility] [address] [address], [address] [place] [phone] Kaykay Reyes MD [address] [facility] [place] [address] medication question Social History Tobacco Use Types Packs/Day Years [...] on file Legal 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 Spoke with pt and explained that wecan not prescribe opioid medications when someone is using marijuana because of safety concerns. The pt verbalized understanding. * Telephone Encounter - Nori Grijalva RN - 08/24/2020 12:49 PM CDT Patient states he was supposed to have a script for tramadol sent yesterday and his pharmacy has noscript for it. documented in this encounter Plan of Treatment [...] on filedocumented in this encounter Care Teams Automation Qtp Tester Relationship Specialty [place] [address] [facility] [address] [place] [address] Rheumatology 02/21/17 Lashay Downs, RN Registered Nurse Pain Management 06/17/17 Duke Do, RN Registered Nurse 09/09/17 Ngozi Petty MD Radiation Oncologist Radiation Oncology 02/05/19 Jose Roberto Marx MD Referring Physician Otolaryngology 02/05/19 documented as of this encounter
--- OUTSIDE RECORDS SUMMARY | 2024-06-14 16:49 | XMS_ITS | Encounter Summary ---
Author Organization [facility] Healthcare Address [address] [place] [address] Care Team Providers Care Public Policy Professor Name Role Phone Criss Blanco MD Unavailable Lashay Downs RN Unavailable Unavailab Duke Goodwin RN Unavailable UnavailNgozi Husain MD Unavailable [phone] Jose Roberto Marx MD Unavailable [phone] Reason for Visit * Reason Onset Date Comments Pre-Surgical Call 07/06/2020 Encounter Details Date Type Department Care Team (Late st Contact Info) Description 07/06/2020 Telephone Pain Management Center at [facility] [address] [address], [address] [place] [phone] Kaykay Reyes MD [address] [facility] [place] [address] Pre-Surgical Call Social History Tobacco Use Types Packs/Day Years [...] file Legal Sex Male 12:56 AM MANAGER MULTIMEDIA Gender Identity Not on file Sexual Orientation Not on file 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 Remind Patients of our location. [facility]. [facility] 4, [address] 2. Ask the covid screening questions a. Have you had any respiratory symptoms including cough, shortness of breath/trouble breathing, fever, sudden loss of taste or smell, sore throat, or body aches? Yes [] No [x] b. Are you currently being tested for Covid-19? Yes [] No [x] c. Have you had any contact with a person known to be positive for Covid-19 or is anyone in your household currently being tested for Covid-19? Yes [] No [x] 3. If the patient answers yes to any of the Covid -19 screening questions they need to be rescheduled for at least 14 days later. 4. Inform patient that only 1 guest/visitor will be allowed into the clinic. 5. Inform patient they will need to wear a mask, along with any guest they bring with them. Procedure Patients 1. Have you received the Covid-19 vaccine within the last 2 weeks? Yes [] No[] (Patient should attempt to not have steroid injection for 2 weeks post covid vaccine if possible) 2. Do you plan to receive the Covid-19 vaccine in the next 2 weeks? Yes [] No [] (Patient should attempt to not have covid vaccine for 2 weeks post steroid injection if possible) 3. Are you on any blood thinners? Yes [] No [] 4. Are you currently on any antibiotics? Yes [] No [] 5. Have you had a fever in the last 7 days? Yes [] No[] 6. Are you diabetic? Yes [] No [] 7. Do you have a electric pile driver operator? (only ask if needed) Yes [] No [] 8. NPO status? (only ask if needed) Yes [] No [] GER MULTIMEDIA documented in this encounter Plan of Treatment [...] on stairs Contact your local community or [facility] for information on exercise, fall prevention programs, or options for improving home safety. documented as of this encounter Visit Diagnoses Not on filedocumented in this encounter Care Teams Public Policy Professor Relationship Specialty [place] [address] [facility] [address] [place] [address] Rheumatology 02/21/17 Lashay Downs, GAY Registered Nurse Pain Management 06/17/17 Duke Do, GAY Registered Nurse 09/09/17 Ngozi Petty MD Radiation Oncologist Radiation Oncology 02/05/19 Jose Roberto Marx MD Referring Physician Otolaryngology 02/05/19 documented as of this encounter
--- OUTSIDE RECORDS SUMMARY | 2024-06-14 16:49 | XMS_ITS | Encounter Summary ---
Author Organization [facility] Address [address] [place] [address] Phone Care Team Providers Care Coagulator Name Role Phone Criss Blanco MD Unavailable Lashay Downs RN Unavailable Unavailab Duke Goodwin RN Unavailable UnavailNgozi Husain MD Unavailable Jose Roberto Marx MD Unavailable [phone] Encounter Details Date Type Department Care Team (Late st Contact Info) Description 03/02/2020 Orders Only [facility] [address] [facility] [address] [place] [address] Nathanael Valdez MD [address] [place] [address] 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
--- OUTSIDE RECORDS SUMMARY | 2024-06-14 16:49 | XMS_ITS | Encounter Summary ---
Author Organization [facility] Healthcare Address [address] [place] [address] Care Team Providers Care Waste Water Plant Operator Name Role Phone Criss Blanco MD Unavailable Lashay Downs RN Unavailable Unavailab Duke Goodwin RN Unavailable UnavailNgozi Husain MD Unavailable [phone] Jose Roberto Marx MD Unavailable [phone] Reason for Referral * Diagnostic Imaging (Routine) - Closed Specialty Diagnoses / Procedures Referred By Contac t Referred To Contact Diagnoses DDD (degenerative disc disease), lumbar Spondylosis of lumbar region without myelopathy or radiculopathy Procedures NM Bone Scan SPECT Kaykay Reyes MD Phone: tel: fax: [facility] [address] [place] [address] Referral ID Status Reason Start Date Expiration Date Visits Re quested Visits Authorized [id number] Closed 08/13/2020 09/27/2020 2 2 ARE VISITOR Encounter Details Date Type Department Care Team (Late st Contact Info) Description 08/09/2020 Telephone Pain Management Center at [address] [address], [address] [place] [phone] Kaykay Reyes MD [address] [facility] [place] [address] Social History Tobacco Use Types Packs/Day Years [...] on file Legal Sex Male 12:56 AM WELFARE VISITOR Gender Identity Not on file Sexual Orientation Not on file 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 on file Not on natalie e documented as of this encounter Miscellaneous Notes * Addendum Note - Iris Ovalles RN - 08/10/2020 10:43 AM CSTAddended by: IRIS OVALLES on: 08/10/2020 10:43 AM Modules accepted: Orders ARE VISITOR * Telephone Encounter - Iris Ovalles RN - 08/10/2020 10:38 AM WELFARE VISITOR Placed order for Bone SPECT scan and discussed with pt agrees to go to [facility] ARE VISITOR * Telephone Encounter - Kaykay Reyes MD - 08/10/2020 8:12 AM WELFARE VISITOR yes ARE VISITOR * Telephone Encounter - Jodee Hurst RN - 08/09/2020 4:01 PM WELFARE VISITOR Patient walked into clinic wanting information about bone spect scan that was to be ordered. I do not see order in chart. Per ASHISH 07/14/20 note: Discussed with patient about options Will consider LES post Order Bone SPECT scan LS spine HEP discussed RTC post Scan OK to order bone spect scan? ARE VISITOR documented in this encounter Plan of Treatment [...] documented as of this encounter Results * NM Bone Scan SPECT (08/16/2020 1:30 PM CDT) Anatomical Region Laterality Modality N/A Nuclear Medicine 08/17/2020 1:14 PM CDT Impressions 08/17/2020 1:14 PM CDT 1. Increased activity in the right L4-L5 facet joint likely reflecting arthropathy. 2. ??Mild disc centered activity in the lower thoracic and lower lumbar spine. ??There are generalized lower thoracic and diffuse lumbar spondylotic changes as above. 3. ??Atherosclerosis including coronary artery atherosclerosis. 4. ??Nonobstructive bilateral nephrolithiasis. Electronically signed by: Juan R Reyez M.D. Narrative 08/17/2020 1:14 PM CDT DETAILED BONE SCINTIGRAPHY WITH SPECT IMAGING AND CT CORRELATION CLINICAL HISTORY: ??Low back pain and radiculopathy. RADIOPHARMACEUTICAL: 25.7 mCi of technetium 99m MDP injected in the left antecubital vein. FINDINGS: 3 hour delayed scintigraphic imaging of the lower thoracic and entire lumbar spine was performed. ??SPECT imaging and low dose CT imaging was performed in conjunction. There is moderate increased activity appreciated in the right L4-L5 facet joint compatible with degenerative change. ??There is mild increased activity along the S1 superior endplate likely reflecting degenerative change. ??There is mild increased activity appreciated within the T11 and T12 vertebral bodies along the inferior endplates likely reflecting degenerative activity. ??Is nonspecific mild increased activity in the anterior aspect of the T8 vertebral body in the region of anterior spurring likely reflecting degenerative activity. ??The remainder of distribution of radiopharmaceutical activity is unremarkable. There is diffuse degenerative disc disease and spur formation throughout the lower thoracic and entire lumbar spine. ??Degenerative facet changes are noted diffusely throughout the visualized spine. There is neural foraminal narrowing bilaterally at L5-S1 due to degenerative facet and degenerative spur formation. ??Similar narrowing is noted at L4-L5 to a lesser extent. ??There is mild canal stenosis from T8 through T12 related to degenerative facet change and calcification. Review of the CT images demonstrate coronary artery atherosclerosis. There is abdominal aortic atherosclerosis. ??There are 2 adjacent 2 mm calculi in the midportion of the left kidney. ??There is a 3 mm calculus in the mid to lower pole of the right kidney. ??Bilateral renal cysts are noted. Procedure Note Juan R Reyez MD - 08/17/2020 DETAILED BONE SCINTIGRAPHY WITH SPECT IMAGING AND CT CORRELATION CLINICAL HISTORY: Low back pain and radiculopathy. RADIOPHARMACEUTICAL: 25.7 mCi of technetium 99m MDP injected in the left antecubital vein. FINDINGS: 3 hour delayed scintigraphic imaging of the lower thoracic and entire lumbar spine was performed. SPECT imaging and low dose CT imaging was performed in conjunction. There is moderate increased activity appreciated in the right L4-L5 facet joint compatible with degenerative change. There is mild increased activity along the S1 superior endplate likely reflecting degenerative change. There is mild increased activity appreciated within the T11 and T12 vertebral bodies along the inferior endplates likely reflecting degenerative activity. Is nonspecific mild increased activity in the anterior aspect of the T8 vertebral body in the region of anterior spurring likely reflecting degenerative activity. The remainder of distribution of radiopharmaceutical activity is unremarkable. There is diffuse degenerative disc disease and spur formation throughout the lower thoracic and entire lumbar spine. Degenerative facet changes are noted diffusely throughout the visualized spine. There is neural foraminal narrowing bilaterally at L5-S1 due to degenerative facet and degenerative spur formation. Similar narrowing is noted at L4-L5 to a lesser extent. There is mild canal stenosis from T8 through T12 related to degenerative facet change and calcification. Review of the CT images demonstrate coronary artery atherosclerosis. There is abdominal aortic atherosclerosis. There are 2 adjacent 2 mm calculi in the midportion of the left kidney. There is a 3 mm calculus in the mid to lower pole of the right kidney. Bilateral renal cysts are noted. IMPRESSION: 1. Increased activity in the right L4-L5 facet joint likely reflecting arthropathy. 2. Mild disc centered activity in the lower thoracic and lower lumbar spine. There are generalized lower thoracic and diffuse lumbar spondylotic changes as above. 3. Atherosclerosis including coronary artery atherosclerosis. 4. Nonobstructive bilateral nephrolithiasis. Electronically signed by: Juan R Reyez M.D. Kaykay Reyes MD IMG NM PROCEDURES Final R esult documented in this encounter Visit Diagnoses Diagnosis DDD (degenerative disc disease), lumbar- Primary Degeneration of lumbar or lumbosacral intervertebral disc Spondylosis of lumbar region without myelopathy or radiculopathy DDD (degenerative disc disease), lumbar Degeneration of lumbar or lumbosacral intervertebral disc Spondylosis of lumbar region without myelopathy or radiculopathy documented in this encounter Care Teams Waste Water Plant Operator Relationship Specialty [place] [address] [facility] [address] [place] [address] Rheumatology 02/21/17 Lashay Downs, RN Registered Nurse Pain Management 06/17/17 Duke Do, RN Registered Nurse 09/09/17 Ngozi Petty MD Radiation Oncologist Radiation Oncology 02/05/19 Jose Roberto Marx MD Referring Physician Otolaryngology 02/05/19 documented as of this encounter
--- OUTSIDE RECORDS SUMMARY | 2024-06-14 16:49 | XMS_ITS | Encounter Summary ---
Author Organization [facility] Healthcare Address [address] [place] [address] Care Team Providers Care Patrol Mother Name Role Phone Criss Blanco MD Unavailable Lashay Downs RN Unavailable Unavailab Duke Goodwin RN Unavailable UnavailNgozi Husain MD Unavailable [phone] Jose Roberto Marx MD Unavailable [phone] Reason for Visit * Reason Onset Date Comments precall 08/22/2020 Encounter Details Date Type Department Care Team (Late st Contact Info) Description 08/22/2020 Telephone Pain Management Center at [facility] [address] [address], [address] [place] [address] Florentino Samuel precall Social History Tobacco Use Types Packs/Day Years [...] on file Legal 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 Remind Patients of our location. [address] [place] [address]. [facility] [address], [address] 2. Have you received the Covid-19 vaccine within the last 2 weeks? Yes [] No[] (Patient should attempt to not have steroid injection for 2 weeks post covid vaccine if possible) 3. Do you plan to receive the Covid-19 vaccine in the next 2 weeks? Yes [] No [] (Patient should attempt to not have covid vaccine for 2 weeks post steroid injection if possible) 4. Have you received both of the Covid-19 Vaccines greater than 2 weeks ago? Yes [x] No [] Dev[employer] august 08 5. Ask the covid screening questions a. Have [...] tested for Covid-19? Yes [] No [x] 6. If the patient answers yes to any of the Covid -19 screening questions they need to be rescheduled for at least 14 days later. 7. Inform patient that only 1 guest/visitor will be allowed into the clinic. 8. Inform patient they will need to wear a mask, along with any guest they bring with them. Procedure Patients 1. Are you on any blood thinners? Yes [] No [] 2. Are you currently on any antibiotics? Yes [] No [] 3. Have you had a fever in the last 7 days? Yes [] No[] 4. Are you diabetic? Yes [] No [] 5. Do you have a cattle driver? (only ask if needed) Yes [] No [] 6. NPO status? (only ask if needed) Yes [] No [] documented in this encounter Plan of Treatment [...] on stairs Contact your local community or [facility] for information on exercise, fall prevention programs, or options for improving home safety. documented as of this encounter Visit Diagnoses Not on filedocumented in this encounter Care Teams Patrol Mother Relationship Specialty [place] [address] [facility] [address] [place] [address] Rheumatology 02/21/17 Lashay Downs, GAY Registered Nurse Pain Management 06/17/17 Duke Do, GAY Registered Nurse 09/09/17 Ngozi Petty MD Radiation Oncologist Radiation Oncology 02/05/19 Jose Roberto Marx MD Referring Physician Otolaryngology 02/05/19 documented as of this encounter
--- OUTSIDE RECORDS SUMMARY | 2024-06-14 16:49 | XMS_ITS | Encounter Summary ---
Author Organization [facility] Healthcare Address [address] [place] [address] Care Team Providers Care Pumper Hand Name Role Phone Criss Blanco MD Unavailable Lashay Downs RN Unavailable Unavailab Duke Goodwin RN Unavailable UnavailNgozi Husain MD Unavailable [phone] Jose Roberto Marx MD Unavailable [phone] Reason for Referral * Diagnostic Imaging (Routine) - Closed Specialty Diagnoses / Procedures Referred By Contac t Referred To Contact Diagnoses Pain management Procedures FL Fluoroscopy < 1 Hour (Statistical Only) Kaykay Reyes MD Phone: tel: fax: [address] [place] [address] Referral ID Status Reason Start Date Expiration Date Visits Re quested Visits Authorized [id number] Closed 08/23/2020 09/22/2021 1 1 Reason for Visit * Diagnostic Imaging (Routine) - Closed Specialty Diagnoses / Procedures Referred By Contac t Referred To Contact Diagnoses Pain management Procedures FL Fluoroscopy < 1 Hour (Statistical Only) Kaykay Reyes MD Phone: tel: fax: [address] [address] [address] [place] [phone] Referral ID Status Reason Start Date Expiration Date Visits Re quested Visits Authorized [id number] Closed 08/23/2020 09/22/2021 1 1 Encounter Details Date Type Department Care Team (Latest Contact Info) Description 08/23/2020 7:47 AM CDT - 08/23/2020 8:56 AM CDT Hospital Encounter [facility] [address] [facility] [address] [place] [address] Pain management Discharge Disposition: Discharge to home or self [...] file 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 documented as of this encounter Procedures Procedure Name Priority Date/Time Associated Diagnosis Comments FL FLUOROSCOPY < 1 HOUR (STATISTICAL ONLY) Schedule Routine, Read Routine (OP Routine) 08/23/2020 10:15 AM CDT Pain management documented in this encounter Results * FL Fluoroscopy < 1 Hour (Statistical Only) (08/23/2020 10:15 AM CDT) Narrative RAD_PACS_[facility] - 08/23/2020 1:51 PM CDT The images from this study are not interpreted by Radiology. ??Please refer to the physician's procedure / OR operative note. us Kaykay Reyes MD IMG FLUOROSCOPY PROCEDURE S Final Result RAD_PACS[facility] documented in this encounter Visit Diagnoses Diagnosis Pain management documented in this encounter Care Teams Pumper Hand Relationship Specialty [place] [address] [facility] [address] [place] [address] Rheumatology 02/21/17 Lashay Downs, RN Registered Nurse Pain Management 06/17/17 Duke Do, RN Registered Nurse 09/09/17 Ngozi Petty MD Radiation Oncologist Radiation Oncology 02/05/19 Jose Roberto Marx MD Referring Physician Otolaryngology 02/05/19 documented as of this encounter
--- OUTSIDE RECORDS SUMMARY | 2024-06-14 16:49 | XMS_ITS | Encounter Summary ---
Author Organization [facility] Healthcare Address [address] [place] [address] Care Team Providers Care Engineer Conductor Name Role Phone Criss Blanco MD Unavailable Lashay Downs RN Unavailable Unavailab Duke Goodwin RN Unavailable UnavailNgozi Husain MD Unavailable [phone] Jose Roberto Marx MD Unavailable [phone] Encounter Details Date Type Department Care Team (Late st Contact Info) Description 03/18/2020 1:35 PM CDT Ancillary Procedure [facility] Outside Films [...] on file Legal Sex Male 12:56 AM OUTSIDE CUTTER HAND Gender Identity Not on file Sexual Orientation Not on file 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 us Not In File Miscellaneous IMG MRI PROCEDURES Fin al Result RAD_PACS[facility] documented in this encounter Visit Diagnoses Not on filedocumented in this encounter Care Teams Engineer Conductor Relationship Specialty [place] [address] [facility] [address] [place] [address] Rheumatology 02/21/17 Lashay Downs, RN Registered Nurse Pain Management 06/17/17 Duke Do, RN Registered Nurse 09/09/17 Ngozi Petty MD Radiation Oncologist Radiation Oncology 02/05/19 Jose Roberto Marx MD Referring Physician Otolaryngology 02/05/19 documented as of this encounter
--- OUTSIDE RECORDS SUMMARY | 2024-06-14 16:49 | XMS_ITS | Encounter Summary ---
Author Organization [facility] Healthcare Address [address] [place] [address] Care Team Providers Care Agricultural Science Professor Name Role Phone Criss Blanco MD Unavailable Lashay Downs RN Unavailable Unavailab Duke Goodwin RN Unavailable UnavailNgozi Husain MD Unavailable [phone] Jose Roberto Marx MD Unavailable [phone] Encounter Details Date Type Department Care Team (Late st Contact Info) Description 04/18/2020 2:39 PM MEDICAL TRANSPORT SPECIALIST Anesthesia Event [facility] Operating Room [address] [place] [address] Sunitha Cannon MD [address] [place], [place] [id number] Anesthesia Record Procedure Summary Procedure Name Responsible Anesthesiologist Anesthesia Start Time Anesthesia Stop Time Flexible Laryngoscopy with KTP laser photoablation (Bilateral) Events Date Time Event Comment 04/18/2020 1404 In Preop 1439 In Room 1440 Proc Start 1450 Proc Fin 1451 Out of Room Meds * Agents No agents on file. * Blood No blood administrations on file. Lines, Drains, and Airways No LDAs on file. 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 on file Not on natalie e documented as of this encounter Plan of Treatment Not on file documented as of this encounter Visit Diagnoses Not on filedocumented in this encounter Care Teams Agricultural Science Professor Relationship Specialty [place] [id number] [address] Rheumatology 02/21/17 Lashay Downs, GAY Registered Nurse Pain Management 06/17/17 Duke Do, RN Registered Nurse 09/09/17 Ngozi Petty MD Radiation Oncologist Radiation Oncology 02/05/19 Jose Roberto Marx MD Referring Physician Otolaryngology 02/05/19 documented as of this encounter
--- OUTSIDE RECORDS SUMMARY | 2024-06-14 16:49 | XMS_ITS | Encounter Summary ---
Author Organization [facility] Healthcare Address [address] [place] [address] Care Team Providers Care Spare Person Name Role Phone Criss Blanco MD Unavailable Lashay Downs RN Unavailable Unavailab Duke Goodwin RN Unavailable UnavailNgozi Husain MD Unavailable [phone] Jose Roberto Marx MD Unavailable [phone] Reason for Visit * Reason Comments Chronic Pain Back Pain Encounter Details Date Type Department Care Team (Latest Contact Info) Description 09/27/2020 10:13 AM CDT - 09/27/2020 11:59 PM CDT Hospital Encounter [facility] at [facility] [address] [address], [address] [place] [address] Kaykay Reyes MD [address] [facility] [address] [place] [address] Spondylosis of lumbar region without myelopathy or radiculopathy (Primary Dx); DDD (degenerative disc disease), lumbar; Chronic pain syndrome Discharge Disposition: Discharge to home or self care Social History Tobacco Use Types Packs/Day Years Used Date Smoking Tobacco: Former Cigarettes 1.5 37 1 959 - 1995 Smokeless Tobacco: Never Alcohol Use Standard Drinks/Week Comments Yes 3 (1 standard drink = 0.6 oz pur e alcohol) AUDIT-C Answer Date Recorded Frequency of Alcohol Consumption 2-3 times a ronaldo silva 01/30/2019 Average Number of Drinks Not on file 019 Frequency of Binge Drinking Weekly 01/03 Sex and Gender Information Value Date Recorded Sex Assigned at Not on file 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 Gender Identity Not on file Sexual Orientation Not on file Occupation Industry Job Start Date Job End Date [employer] may Not on file Not on file Not on natalie e documented as of this encounter Last Filed Vital Signs Vital Sign Reading Time Taken Comments Blood Pressure 128/76 09/27/2020 10:32 AM CDT Pulse 63 09/27/2020 10:32 AM CDT Temperature 36.5 ??C (97.7 ??F) 09/27/2020 10:32 AM C DT Respiratory Rate 18 09/27/2020 10:32 AM CDT Oxygen Saturation 97% 09/27/2020 10:32 AM CDT Inhaled Oxygen Concentration - - Weight 95.3 kg (210 lb 1.6 oz) 09/27/2020 10:32 AM CDT Height - - Body Mass Index 27.72 08/23/2020 9:08 AM CDT documented in this encounter Discharge Instructions * Patient Instructions* Alanis Da Silva RN - 09/27/2020 10:15 AM CDT [facility] CENTER DISCHARGE INSTRUCTIONS [phone] (Saturday-Saturday 7:30 am - 4:00 pm) PLAN: PROCEDURE TODAY: Start Physical Therapy FOLLOW UP: as needed The [facility] is committed to providing your medication refills in a timely manner. When submitting a refill request, please note the following guidelines: ??? Federal guidelines recommend patients with chronic pain, for whom opioid medications are prescribed, be evaluated at least once every two-three months.The [facility] adheres to these guidelines and patients should plan to be seen at least every two-three months (or more frequently, as deemed appropriate by the prescribing provider). o To allow timely scheduling of evaluations, please contact the office to schedule your appointment6-8 weeks in advance. ??? For all opioid/narcotic prescription refills, please contact the [facility] Management Center at least 7 days prior to the date of need. o Call [phone] choose option #1 for the Prescription Refill Line and leave the following information: - Name, date of , and phone number - Name(s) of the medication(s) needing refill - Name and number for the pharmacy where the refill(s) should be sent ??? All non-opioid/non-narcotic refill requests should be submitted directly to the pharmacy. The pharmacy will then contact the [facility] with the necessary information. ??? If you have any questions or concerns, please contact the [facility] Management [facility] at [phone]. For any questions about your visit or your procedure, please call the Pain Management Center [phone] (Saturday-Saturday 7:30 am - 4:00 pm). Please leave a message on the Nurse Line for ALL Non Urgent matters (option #4). If you have an urgent matter during normal business hours please choose option #3 for current patients. If you need urgent attention after 4 pm, on the weekends, or a holiday that can not wait until the office opens: Please call 911 or go to the nearest Emergency Room. documented in this encounter Medications at Time [...] documented in this encounter Progress Notes * Kaykay Reyes MD - 09/27/2020 10:15 AM CDT HPI Pain in lower back right side is worse then left. He had good pain relief from lumbar facet injections. After several days he had to go to hospital to help his son, he was sitting in a chair for 5 hours and pain returned. He is using back brace, velcro type and that helps a lot. He is using Pain is deep achy in nature, worse with exercise walking, standing and better with rest Does walk and exercise as tolerated P/E A/O times 3 No facial weakness Power 5/5 Reflexes + in UE, ++ in LE. Sensations to light touch N Lumbar spine flexion is limited Painful lumbar extension. Lumbar paraspinal muscles tightness + Facet loading is positive for pain Impression Lumbar DDD Lumbo Sacral spondylosis Chronic Pain Plan Discussed with patient about options Will start PT, prescription given will consider lumbar facet injection in future if needed. documented in this encounter Miscellaneous Notes * Addendum Note - Flash Lo RT - 09/27/2020 10:15 AM CDTEncounter addended by: Flash Lo RT on: 09/27/2020 3:04 PM Actions taken: Procedure log completed documented in this encounter Plan of Treatment [...] on stairs Contact your local community or central hospital for information on exercise, fall prevention programs, or options for improving home safety. documented as of this encounter Visit Diagnoses Diagnosis Spondylosis of lumbar region without myelopathy or radiculopathy- Primary DDD (degenerative disc disease), lumbar Degeneration of lumbar or lumbosacral intervertebral disc Chronic pain syndrome documented in this encounter Care Teams Spare Person Relationship Specialty [place] [address] [address] [facility] [address] [place] [address] Rheumatology 02/21/17 Lashay Downs, GAY Registered Nurse Pain Management 06/17/17 Duke Do, RN Registered Nurse 09/09/17 Ngozi Petty MD Radiation Oncologist Radiation Oncology 02/05/19 Jose Roberto Marx MD Referring Physician Otolaryngology 02/05/19 documented as of this encounter
--- OUTSIDE RECORDS SUMMARY | 2024-06-14 16:49 | XMS_ITS | Encounter Summary ---
Author Organization [facility] Healthcare Address [address] [place] [address] Care Team Providers Care Label Folder Name Role Phone Criss Blanco MD Unavailable Lashay Downs RN Unavailable Unavailab Duke Goodwin RN Unavailable UnavailNgozi Husain MD Unavailable [phone] Jose Roberto Marx MD Unavailable [phone] Reason for Visit * Reason Onset Date Comments medication issue 08/22/2020 Encounter Details Date Type Department Care Team (Late st Contact Info) Description 08/22/2020 Telephone [facility] Management Center at 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 RX in system was printed. Called pharmacy they state they have no script on file forthis month. documented in this encounter Plan of Treatment [...] on filedocumented in this encounter Care Teams Label Folder Relationship Specialty [place] [address] [facility] [address] [place] [address] Rheumatology 02/21/17 Lashay Downs, RN Registered Nurse Pain Management 06/17/17 Duke Do, RN Registered Nurse 09/09/17 Ngozi Petty MD Radiation Oncologist Radiation Oncology 02/05/19 Jose Roberto Marx MD Referring Physician Otolaryngology 02/05/19 documented as of this encounter
--- OUTSIDE RECORDS SUMMARY | 2024-06-14 16:49 | XMS_ITS | Encounter Summary ---
Author Organization [facility] Address [address] [place] [address] Phone Care Team Providers Care Website Designer Name Role Phone Criss Blanco MD Unavailable Lashay Downs RN Unavailable Unavailab Duke Goodwin RN Unavailable UnavailNgozi Husain MD Unavailable [phone] Jose Roberto Marx MD Unavailable [phone] Reason for Visit * Reason Comments Dysphonia * Consultation (Routine) - Closed Specialty Diagnoses / Procedures Referred By Alcira forrest Referred To Contact Otolaryngology Diagnoses Dysphonia Viraj Romeo, ZOILA [address] [place] [address] Phone: tel: fax: [facility] (All Locations) Referral ID Status Reason Start Date Expiration Date V isits Requested Visits Authorized [id number] Closed Specialty Services Required 06/23/2020 12/20/2020 99 99 Encounter Details Date Type Department Care Team (Late st Contact Info) Description 10/04/2020 9:40 AM CDT Office Visit [facility] [address] [facility] Medical Office Building [address] [place] [phone] Nathanael Valdez MD [address] [place] [address] Squamous cell carcinoma of larynx (CMS/HCC) (Primary [...] file Legal 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 Dysphonia Subjective Samuel Sanchez is a 75 y.o. 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 Plan to proceed to the OR for biopsy and laser treatment of the new right TVC lesions. No orders of the defined types were placed in this encounter. Disposition: No follow-ups on file. Nathanael Valdez MD, FACS Jury Consultant [facility] Division of Laryngology Department of Otolaryngology--Head & Neck Surgery Portions of this note were dictated using M*Modal Fluency Direct. Analyst Food And Beverage variances may occur. I have seen and examined the patient. I agree with the findings and plan of care as documented in the resident/fellow's note and as discussed with the resident/fellow. 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 Plan to proceed to the OR for biopsy and laser treatment of the new right TVC lesions. documented in this encounter Plan of Treatment [...] Dysphonia documented in this encounter Care Teams Website Designer Relationship Specialty [place] [address] [facility] [address] [place] [address] Rheumatology 02/21/17 Lashay Downs, RN Registered Nurse Pain Management 06/17/17 Duke Do, RN Registered Nurse 09/09/17 Ngozi Petty MD Radiation Oncologist Radiation Oncology 02/05/19 Jose Roberto Marx MD Referring Physician Otolaryngology 02/05/19 documented as of this encounter
--- OUTSIDE RECORDS SUMMARY | 2024-06-14 16:49 | XMS_ITS | Encounter Summary ---
Author Organization [facility] Healthcare Address [address] [place] [address] Care Team Providers Care Liquor Establishment Manager Name Role Phone Criss Blanco MD Unavailable Lashay Downs RN Unavailable Unavailab Duke Goodwin RN Unavailable UnavailNgozi Husain MD Unavailable [phone] Jose Roberto Marx MD Unavailable [phone] Reason for Referral * Diagnostic Imaging (Routine) - Closed Specialty Diagnoses / Procedures Referred By Contac t Referred To Contact Diagnoses DDD (degenerative disc disease), lumbar Spondylosis of lumbar region without myelopathy or radiculopathy Procedures NM Bone Scan SPECT Kaykay Reyes MD Phone: tel: fax: [id number] [place] [address] Referral ID Status Reason Start Date Expiration Date Visits Re quested Visits Authorized [id number] Closed 08/13/2020 09/27/2020 2 2 Reason for Visit * Diagnostic Imaging (Routine) - Closed Specialty Diagnoses / Procedures Referred By Contac t Referred To Contact Diagnoses DDD (degenerative disc disease), lumbar Spondylosis of lumbar region without myelopathy or radiculopathy Procedures NM Bone Scan SPECT Kaykay Reyes MD Phone: tel: fax: [facility] [address] [place] [address] Referral ID Status Reason Start Date Expiration Date Visits Re quested Visits Authorized [id number] Closed 08/13/2020 09/27/2020 2 2 Encounter Details Date Type Department Care Team (Latest Contact Info) Description 08/16/2020 9:31 AM CDT - 08/16/2020 11:59 PM CDT Hospital Encounter [facility] - Imaging [address] [place] [address] Kaykay Reyes MD [address] [place] [address] DDD (degenerative disc disease), lumbar; Spondylosis of lumbar region without myelopathy or radiculopathy Discharge Disposition: Discharge to home or self [...] on file 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 Gender Identity Not on file Sexual [...] 6 (six) hours as needed 03/22/2020 2 traMADoL (ULTRAM) 50 mg tablet Take by mouth every 6 (six) hours as needed 07/01/2020 1 documented as of this encounter Discharge Disposition [...] Name Priority Date/Time Associated Diagnosis Comments NM BONE IMAGING SPECT/CT Schedule Routine, Read Routine (OP Routine) 08/16/2020 1:30 PM CDT DDD (degenerative disc disease), lumbar Spondylosis of lumbar region without myelopathy or radiculopathy documented in this encounter Results * NM Bone Scan [...] Visit Diagnoses Diagnosis DDD (degenerative disc disease), lumbar Degeneration of lumbar or lumbosacral intervertebral disc Spondylosis of lumbar region without myelopathy or radiculopathy documented in this encounter Administered Medications Inactive Administered Medications - up to 3 most recent administrations Medication Order MAR Action Action Date Dose Rate Site tc-99m medronate (MDP) injection 25.7 millicurie 25.7 millicurie, intravenous, Once in imaging, radiopharmaceutical, Starting on Sat08/16/20 at 1007, For 1 dose, Indications: Diagnostic RadiographyIndicatio ns:Diagnostic Radiography Given 08/16/2020 10:00 AM CDT 25.7 millicuries Left Antecubital documented in this encounter Care Teams Liquor Establishment Manager Relationship Specialty [place] [address] [facility] [address] [place] [address] Rheumatology 02/21/17 Lashay Downs, RN Registered Nurse Pain Management 06/17/17 Duke Do, RN Registered Nurse 09/09/17 Ngozi Petty MD Radiation Oncologist Radiation Oncology 02/05/19 Jose Roberto Marx MD Referring Physician Otolaryngology 02/05/19 documented as of this encounter
--- OUTSIDE RECORDS SUMMARY | 2024-06-14 16:49 | XMS_ITS | Encounter Summary ---
Author Organization [facility] Address [address] [place] [address] Care Team Providers Care Regulatory Services Consultant Name Role Phone Criss Blanco MD Unavailable Lashay Downs RN Unavailable Unavailab Duke Goodwin RN Unavailable UnavailNgozi Husain MD Unavailable [phone] Jose Roberto Mrax MD Unavailable [phone] Encounter Details Date Type Department Care Team (Late st Contact Info) Description 11/24/2019 Telephone [facility] Gastroenterology at [address] [place] [address] Deanne Antonio Social History Tobacco Use Types Packs/Day Years [...] on file Legal Sex Male 12:56 AM TYPE COPY EXAMINER Gender Identity Not on file Sexual Orientation Not on file 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 on file Not on natalie e documented as of this encounter Miscellaneous Notes * Telephone Encounter - Deanne Antonio - 11/24/2019 1:36 PM CDT Returned call lvm documented in this encounter Plan of Treatment Not on file documented as of this encounter Visit Diagnoses Not on filedocumented in this encounter Care Teams Regulatory Services Consultant Relationship Specialty [place] [address] [facility] [address] [place] [address] Rheumatology 02/21/17 Lashay Downs, RN Registered Nurse Pain Management 06/17/17 Duke Do, RN Registered Nurse 09/09/17 Ngozi Petty MD Radiation Oncologist Radiation Oncology 02/05/19 Jose Roberto Marx MD Referring Physician Otolaryngology 02/05/19 documented as of this encounter
--- OUTSIDE RECORDS SUMMARY | 2024-06-14 16:49 | XMS_ITS | Encounter Summary ---
Author Organization [facility] Healthcare Address [address] [place] [address] Care Team Providers Care Aluminum Shingle Roofer Name Role Phone Criss Blanco MD Unavailable Lashay Downs RN Unavailable Unavailab Duke Goodwin RN Unavailable UnavailNgozi Husain MD Unavailable [phone] Jose Roberto Marx MD Unavailable [phone] Reason for Visit * Reason Comments Follow-up back pain Encounter Details Date Type Department Care Team (Latest Contact Info) Description 07/14/2020 7:57 AM CATTLE BROKER - 07/14/2020 11:59 PM [facility] Hospital Encounter [facility] at [facility] [address] [address], [address] [place] [phone] Kaykay Reyes MD [address] 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 Not on file Not on natalie e documented as of this encounter Last Filed Vital Signs Vital Sign Reading Time Taken Comments Blood Pressure 150/85 07/14/2020 8:10 AM CATTLE BROKER Pulse 70 07/14/2020 8:10 AM CATTLE BROKER Temperature 36.4 ??C (97.5 ??F) 07/14/2020 8:10 AM CS T Respiratory Rate 16 07/14/2020 8:10 AM CATTLE BROKER Oxygen Saturation 98% 07/14/2020 8:10 AM CATTLE BROKER Inhaled Oxygen Concentration - - Weight 95.3 kg (210 lb) 07/14/2020 8:10 AM CATTLE BROKER Height 182.9 cm (6') 07/14/2020 8:10 AM CATTLE BROKER Body Mass Index 28.48 07/14/2020 8:10 AM CATTLE BROKER documented in this encounter Discharge Instructions * Patient Instructions* Jodee Hurst, GAY - 07/14/2020 8:15 AM CATTLE BROKER PAIN [facility]NAGEMENT CENTER DISCHARGE INSTRUCTIONS [phone] (Saturday-Saturday 7:30 am - 4:00 pm) PLAN: PROCEDURE TODAY: PROCEDURE AT NEXT VISIT: DIAGNOSTIC TEST(S): bone spect scan FOLLOW UP: post bone spect scan The [facility] is committed to [...] to the date of need. o Call [phone] choose option #1 for the Prescription Refill [...] please contact the Pain Management Center at [phone]. For any questions about your visit or your procedure, please call the Pain Management Center [phone] (Saturday-Saturday 7:30 am - 4:00 pm). Please [...] or go to the nearest Emergency Room. LE BROKER documented in this encounter Medications at Time [...] Progress Notes * Kaykay Reyes MD - 07/14/2020 8:15 AM CST HPI Pain in right lower back without radiation to LE. He had right lumbar MBB that did not help. Pain is deep achy in nature, worse with exercise walking, standing and better with rest Sleep poorly Does walk and exercise as tolerated P/E A/O times 3 No facial weakness Power 5/5 Reflexes + in UE, +/- in LE. Sensations to light touch N Lumbar spine flexion is limited Painful lumbar extension. Lumbar paraspinal muscles tightness + Facet loading is positive for pain Tenderness over right SIJ Impression Lumbar DDD Lumbo Sacral spondylosis Chronic Pain Plan Discussed with patient about options Will consider LES post Order Bone SPECT scan LS spine HEP discussed RTC post Scan LE BROKER documented in this encounter Miscellaneous Notes * Addendum Note - Jodee Hurst RN - 07/14/2020 8:15 AM CSTEncounter addended by: Jodee Hurst RN on: 07/14/2020 8:53 AM Actions taken: Flowsheet accepted, Clinical Note Signed, Charge Capture section accepted, Follow-upmodified, Procedure log completed LE BROKER documented in this encounter Plan of Treatment [...] on stairs Contact your local community or [facility] for information on exercise, fall prevention programs, or options for improving home safety. documented as of this encounter Visit Diagnoses Diagnosis Lumbosacral spondylosis without myelopathy- Primary Other idiopathic scoliosis, thoracolumbar region documented in this encounter Care Teams Aluminum Shingle Roofer Relationship Specialty [place] [address] [place] [address] Rheumatology 02/21/17 Lashay Downs, GAY Registered Nurse Pain Management 06/17/17 Duke Do, RN Registered Nurse 09/09/17 Ngozi Petty MD Radiation Oncologist Radiation Oncology 02/05/19 Jose Roberto Marx MD Referring Physician Otolaryngology 02/05/19 documented as of this encounter
--- OUTSIDE RECORDS SUMMARY | 2024-06-14 16:49 | XMS_ITS | Encounter Summary ---
Author Organization [facility] Healthcare Address [address] [place] [address] Care Team Providers Care Oil And Gas Lease Pumper Name Role Phone Criss Blanco MD Unavailable Lashay Downs RN Unavailable Unavailab Duke Goodwin RN Unavailable UnavailNgozi Husain MD Unavailable [phone] Jose Roberto Marx MD Unavailable [phone] Reason for Visit * Reason Onset Date Comments intake assessment 06/24/2020 Encounter Details Date Type Department Care Team (Late st Contact Info) Description 06/24/2020 Telephone Pain Management Center at [facility] [address] [address], [address] [place] [phone] Kaykay Reyes MD [address] [facility] [place] [address] intake assessment Social History Tobacco Use Types Packs/Day Years [...] on file 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 Lower back mostly the right side and neck How long have has the pain been going on? At least 10 years Was there any accident or injury that started the pain? no What is your current pain score? Most of the time the back doesn't hurt- prolonged sitting causes pain, diving too long causes pain -03/12 Have you had any physical therapy? Has tried and it makes the pain worse Are you doing home exercises? Yes stretching, walking,leg lifts, and exercises learned at PT; 3-4 times a week What medications have you tried? Tizanidine, has stomach issues so doesn't use NSAID Have you had pain management before? Yes What is the name and location of previous pain management? [facility] - had injectionsseveral years ago but doesn't feel like they helped Have you had any injections in your spine in the past 12 months? No Have you had any imaging done? Yes in [facility] What therapies are you interested in for your pain management? Possible facet injections New pt packet has been mailed to patient and insurance referral has been requested from PCP TRUCK MECHANIC documented in this encounter Plan of Treatment Not on file documented as of this encounter Visit Diagnoses Not on filedocumented in this encounter Care Teams Oil And Gas Lease Pumper Relationship Specialty [place] [address] [facility] [address] [place] [address] Rheumatology 02/21/17 Lashay Downs, RN Registered Nurse Pain Management 06/17/17 Duke Do, GAY Registered Nurse 09/09/17 Ngozi Petty MD Radiation Oncologist Radiation Oncology 02/05/19 Jose Roberto Marx MD Referring Physician Otolaryngology 02/05/19 documented as of this encounter
--- OUTSIDE RECORDS SUMMARY | 2024-06-14 16:49 | XMS_ITS | Encounter Summary ---
Author Organization [facility] Healthcare Address [address] [place] [address] Care Team Providers Care Cake Icer And Packer Name Role Phone Criss Blanco MD Unavailable Lashay Downs RN Unavailable Unavailab Duke Goodwin RN Unavailable UnavailNgozi Husain MD Unavailable [phone] Jose Roberto Marx MD Unavailable [phone] Encounter Details Date Type Department Care Team (Late st Contact Info) Description 08/18/2020 Telephone Pain Management Center at [facility] [address] [address], [address] [place] [phone] Kaykay Reyes MD [address] [facility] [place] [address] Social History Tobacco Use Types [...] on file 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 Pt is requesting a prescription for Tramadol. * Telephone Encounter - Mabel Rincon RN - 08/18/2020 10:45 AM CDT ----- Message from Kaykay Reyes MD sent at 08/17/2020 1:51 PM CDT ----- Bone SPECT reported increased uptake at L4-5 facet He did not benefited from L2,3,4 MBB Will f/u and consider L4-5 facet injection documented in this encounter Plan of Treatment [...] on filedocumented in this encounter Care Teams Cake Icer And Packer Relationship Specialty [place] [address] [facility] [address] [place] [address] Rheumatology 02/21/17 Lashay Downs, RN Registered Nurse Pain Management 06/17/17 Duke Do, RN Registered Nurse 09/09/17 Ngozi Petty MD Radiation Oncologist Radiation Oncology 02/05/19 Jose Roberto Marx MD Referring Physician Otolaryngology 02/05/19 documented as of this encounter
--- OUTSIDE RECORDS SUMMARY | 2024-06-14 16:49 | XMS_ITS | Encounter Summary ---
Author Organization [facility] Medical Group Address [address] [facility] [address] [place] [address] Care Team Providers Care Grain Broker Name Role Phone Criss Blanco MD Unavailable Lashay Downs RN Unavailable Unavailab Duke Goodwin RN Unavailable UnavailNgozi Husain MD Unavailable [phone] Jose Roberto Marx MD Unavailable [phone] Encounter Details Date Type Department Care Team (Late st Contact Info) Description 04/10/2020 Orders Only [facility] Testing Site - [address] [place] [address] Nathanael Valdez MD [address] [place] [address] Pre-procedure lab exam (Primary Dx) Social History Tobacco Use Types [...] on file 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 Testing Site: [facility] ([facility]) [address] [place] [address] [place] [address] Hours: ??? M-F 7am-4pm ??? Sa 7am-12pm Pt wants [facility] location Order Specific Questions Question Answer Comment Testing types: Pre-procedure ?? Date of px/chemo/treatment/placement/xfr: 04/18/2020 ?? Procedure: Flexible laryngoscopy with KTP laser photoblation ?? Date testing requested: 04/15/2020 ?? Testing: COVID-RNA ?? Is this the first COVID-19 test for this patient? Unknown ?? Does the patient currently work in a healthcare facility with direct patient contact? Unknown ?? Is the patient a resident of a congregate care or living setting? Unknown ?? Is the patient ? No ?? Please select the performing region: [facility] Medical Group TIONAL DIRECTOR documented in this encounter Plan of Treatment Not on file documented as of this encounter Results * COVID-19 Coronavirus RNA Nasopharyngeal (04/15/2020 1:24 PM VOCATIONAL DIRECTOR) COVID-19 RNA Not Detected [facility] Comment: Testing performed as a component of ??a specimen pool. ??Negative results should be treated as presumptive and, if inconsistent with clinical signs and symptoms or necessary for patient management, pooled samples should be tested individually. Negative results do not preclude SARS-CoV-2 infection and must not be used as the sole basis for patient management decisions. Negative results must be considered in the context of a patient? s recent exposures, history, presence of clinical signs and symptoms consistent with COVID-19. Interpretive Data Testing performed at [facility] Molecular Infectious Disease Laboratory. The Novel Coronavirus Assay (COVID-19) Real Time RT-PCR assay is for in vitro diagnostic use under FDA emergency use authorization only. A negative RT-PCR result does not preclude infection with COVID-19 and should not be used as the sole basis for treatment or other patient management decisions. Additional sample types have been validated according to CLIA regulations. ?? Current Interpretive Data was last revised on 2019. First COVID-19 test? Unknown [facility] ([facility]) Comment:Testing performed by : [facility], [address] [place] [address], [address] Employeed in healthcare? Unknown [facility] ([facility]) Comment:Testing performed by : [facility], [address] [place] [address], [id number] status? No [facility] ([facility]) Comment:Testing performed by : [facility], [address] [facility], [address] Group care resident? Unknown [facility] ([facility]) Comment:Testing performed by : [facility], [address] [place] [address], [address] Hospitalized? Unknown [facility] ([facility]) Comment:Testing performed by : [facility], [address] [facility], [address] Is patient in ICU? Unknown [facility] ([facility]) Comment:Testing performed by : [facility], [address] [place] [address], [address] Symptomatic as defined by CDC? No [facility] (BRE) Comment:Testing performed by : [facility], [address] [place] [address], [id number] Nasopharyngeal 04/15/2020 1: 24 PM VOCATIONAL DIRECTOR 04/16/2020 12:35 AM VOCATIONAL DIRECTOR Narrative [facility] (BRE) - 04/16/2020 3:36 PM VOCATIONAL DIRECTOR What is the reason for testing?->Screening prior to scheduled procedure or surgery us Nathanael Valdez MD LAB MICROBIOLOGY - GENERA L ORDERABLES Final Result [facility]ORAES (BRE) 1 [facility] Department [place] [address] documented in this encounter Visit Diagnoses Diagnosis Pre-procedure lab exam- Primary Pre-procedural laboratory examination Pre-procedure lab exam Pre-procedural laboratory examination documented in this encounter Care Teams Grain Broker Relationship Specialty [place] [address] [facility] [address] [place] [address] Rheumatology 02/21/17 Lashay Downs, RN Registered Nurse Pain Management 06/17/17 Duke Do, RN Registered Nurse 09/09/17 Ngozi Petty MD Radiation Oncologist Radiation Oncology 02/05/19 Jose Roberto Marx MD Referring Physician Otolaryngology 02/05/19 documented as of this encounter
--- OUTSIDE RECORDS SUMMARY | 2024-06-14 16:49 | XMS_ITS | Encounter Summary ---
Author Organization [facility] Healthcare Address [address] [place] [address] Care Team Providers Care Procurement Cost Coordinator Name Role Phone Criss Blanco MD Unavailable Lashay Downs RN Unavailable Unavailab Duke Goodwin RN Unavailable UnavailNgozi Husain MD Unavailable [phone] Jose Roberto Marx MD Unavailable [phone] Reason for Referral * (Routine) - Closed Specialty Diagnoses / Procedures Referred By Contac t Referred To Contact Diagnoses Renal stones Procedures ECG 12 lead Viraj Stuart MD [address] [address] Phone: tel: fax: [address] [address] Referral ID Status Reason Start Date Expiration Date Visits Re quested Visits Authorized [id number] Closed 06/20/2020 07/20/2021 1 1 INE BOSS Reason for Visit * (Routine) - Closed Specialty Diagnoses / Procedures Referred By Contac t Referred To Contact Diagnoses Renal stones Procedures ECG 12 lead Viraj Stuart MD [address] [address] Phone: tel: fax: [address] [address] Referral ID Status Reason Start Date Expiration Date Visits Re quested Visits Authorized [id number] Closed 06/20/2020 07/20/2021 1 1 Encounter Details Date Type Department Care Team (Latest Contact Info) Description 06/20/2020 12:00 PM MACHINE BOSS - 06/20/2020 11:59 PM MACHINE BOSS Hospital Encounter [facility] Cardiology 1 [place] [address] Viraj Stuart MD [address] DEPT [address] [place] [id number] Renal stones Discharge Disposition: Discharge to home or self [...] on file Legal Sex Male 12:56 AM MACHINE BOSS Gender Identity Not on file Sexual [...] Procedure Name Priority Date/Time Associated Diagnosis Comments ECG 12-LEAD Routine 06/20/2020 12:18 PM MACHINE BOSS Renal stones documented in this encounter Results * ECG 12 lead (06/20/2020 12:18 PM MACHINE BOSS) 06/20/2020 12:1 5 PM MACHINE BOSS Narrative [facility] - 06/20/2020 1:10 PM MACHINE BOSS Vent Rate: 82 bpm RR Interval: 731 msec SD Interval: 175 msec QRS Duration: 95 msec QT Interval: 384 msec QTC Interval: 422 msec P-R-T [place]: 68 - 3 - 68 degrees SINUS RHYTHM WITH OCCASIONAL VENTRICULAR PREMATURE COMPLEXES POSSIBLE LEFT ATRIAL ENLARGEMENT ??[-0.1mV P WAVE IN V1/V2] BORDERLINE ECG Compared to prior EKG, rate is now faster and PVCs are new. Electronically Signed By: Dr Chidi Rhodes Viraj Stuart MD ECG ORDERABLES Final Result [facility] documented in this encounter Visit Diagnoses Diagnosis Renal stones documented in this encounter Care Teams Procurement Cost Coordinator Relationship Specialty [place] [address] [facility] [address] [place] [address] Rheumatology 02/21/17 Lashay Downs, RN Registered Nurse Pain Management 06/17/17 Duke Do, RN Registered Nurse 09/09/17 Ngozi Petty MD Radiation Oncologist Radiation Oncology 02/05/19 Jose Roberto Marx MD Referring Physician Otolaryngology 02/05/19 documented as of this encounter
--- OUTSIDE RECORDS SUMMARY | 2024-06-14 16:49 | XMS_ITS | Encounter Summary ---
Author Organization [facility] Healthcare Address [address] [place] [address] Care Team Providers Care Rubber Chemist Name Role Phone Criss Blanco MD Unavailable Lashay Downs RN Unavailable Unavailab Duke Goodwin RN Unavailable UnavailNgozi Husain MD Unavailable [phone] Jose Roberto Marx MD Unavailable [phone] Encounter Details Date Type Department Care Team (Latest Contact Info) Description 07/07/2020 3:55 PM PLUMBER - 07/07/2020 11:59 PM PLUMBER Hospital Encounter [facility] [address] [place] [address] Kaykay Reyes MD [address] [facility] [place] [address] Discharge Disposition: Discharge to home or self [...] on file Legal Sex Male 12:56 AM PLUMBER Gender Identity Not on file Sexual Orientation [...] stairs Contact your local community or [facility] for information on exercise, fall prevention programs, or options for improving home safety. documented as of this encounter Procedures Procedure Name Priority Date/Time Associated Diagnosis Comments NEURO CT MR OUTSIDE REFERENCE Routine 07/07/2020 3:55 PM PLUMBER Pain documented in this encounter Results * Neuro CT MR Outside Reference (07/07/2020 3:55 PM PLUMBER) Impressions RAD_PACS[facility] - 07/07/2020 3:55 PM PLUMBER These images are for Reference purposes only and have not been reviewed by [facility] Radiology. ??There will be no report generated by a [facility] Radiologist. Narrative [facility] - 07/07/2020 3:55 PM PLUMBER EXAMINATION: ??Images For Reference Purposes Only us Kaykay eRyes MD IMG CT PROCEDURES Final R esult [facility] documented in this encounter Visit Diagnoses Not on filedocumented in this encounter Care Teams Rubber Chemist Relationship Specialty [place] [address] [facility] [address] [place] [address] Rheumatology 02/21/17 Lashay Downs, RN Registered Nurse Pain Management 06/17/17 Duke Do, GAY Registered Nurse 09/09/17 Ngozi Petty MD Radiation Oncologist Radiation Oncology 02/05/19 Jose Roberto Marx MD Referring Physician Otolaryngology 02/05/19 documented as of this encounter
--- OUTSIDE RECORDS SUMMARY | 2024-06-14 16:49 | XMS_ITS | Encounter Summary ---
Author Organization [facility] Healthcare Address [address] [place] [address] Care Team Providers Care Loan Clerk Name Role Phone Criss Blanco MD Unavailable Lashay Downs RN Unavailable Unavailab Duke Goodwin RN Unavailable UnavailNgozi Husain MD Unavailable [phone] Jose Roberto Marx MD Unavailable [phone] Encounter Details Date Type Department Care Team (Late st Contact Info) Description 04/15/2020 1:25 PM METER TECHNICIAN Lab [address] [address] Nathanael Valdez MD [address] [place] [address] Pre-procedure lab exam Discharge Disposition: Discharge to home or self [...] on file Legal Sex Male 12:56 AM METER TECHNICIAN Gender Identity Not on file Sexual Orientation Not on file 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 on file Not on natalie e documented as of this encounter Discharge Disposition Disposition Code Departure Means Destination Discharge to home or self care documented in this encounter Plan of Treatment Not on file documented as of this encounter Procedures Procedure Name Priority Date/Time Associated Diagnosis Comments COVID-19 CORONAVIRUS RNA Routine 04/15/2020 1:24 PM METER TECHNICIAN Pre-procedure lab exam documented in this encounter Results * COVID-19 Coronavirus RNA Nasopharyngeal (04/15/2020 1:24 PM METER TECHNICIAN) COVID-19 RNA Not Detected [facility] ([facility]) Comment: Testing performed as a component of [...] with COVID-19. Interpretive Data Testing performed at [facility] Molecular Infectious Disease Laboratory. The 2019-Novel Coronavirus Assay (COVID-19) Real Time RT-PCR assay [...] [facility] ([facility]) Comment:Testing performed by : [facility], [address] [facility] [place]., [address] Employeed in healthcare? Unknown [facility] ([facility]) Comment:Testing performed by : [facility], [address] [place]., [address] status? No [facility] ([facility]) Comment:Testing performed by : [facility], [address] [place]., [address] Group care resident? Unknown [facility] ([facility]) Comment:Testing performed by : [facility], [address] [place]., [address] Hospitalized? Unknown ANDRE MOR[facility] (BRE) Comment:Testing performed by : [facility], [address] [facility], [address] Is patient in ICU? Unknown ANDRE MORAES (BRE) Comment:Testing performed by : [facility], [address] [place]., [address] Symptomatic as defined by CDC? No ANDRE MORAES (BRE) Comment:Testing performed by : [facility], [address] [place] [address], [address] Nasopharyngeal 04/15/2020 1: 24 PM METER TECHNICIAN 04/16/2020 12:35 AM METER TECHNICIAN Narrative ANDRE MORAES (BRE) - 04/16/2020 3:36 PM METER TECHNICIAN What is the reason for testing?->Screening prior to scheduled procedure or surgery Nathanael Valdez MD LAB MICROBIOLOGY - GENERA L ORDERABLES Final Result [facility] MORAES (BRE) 1 [facility] [place] [address] documented in this encounter Visit Diagnoses Diagnosis Pre-procedure lab exam Pre-procedural laboratory examination documented in this encounter Care Teams Loan Clerk Relationship Specialty [place] [address] [facility] [address] [place] [address] Rheumatology 02/21/17 Lashay Downs, GAY Registered Nurse Pain Management 06/17/17 Duke Do, RN Registered Nurse 09/09/17 Ngozi Petty MD Radiation Oncologist Radiation Oncology 02/05/19 Jose Roberto Marx MD Referring Physician Otolaryngology 02/05/19 documented as of this encounter
--- OUTSIDE RECORDS SUMMARY | 2024-06-14 16:49 | XMS_ITS | Encounter Summary ---
Author Organization [facility] Healthcare Address [address] [place] [address] Care Team Providers Care Chicle Grinder Feeder Name Role Phone Criss Blanco MD Unavailable Lashay Downs RN Unavailable Unavailab Duke Goodwin RN Unavailable UnavailNgozi Husain MD Unavailable [phone] Jose Roberto Marx MD Unavailable [phone] Encounter Details Date Type Department Care Team (Late st Contact Info) Description 08/23/2020 Telephone Pain Management Center at [facility] [address] [address], [address] [place] [phone] Kaykay Reyes MD [address] [facility] [place] [address] Social History Tobacco Use Types [...] on file Legal Sex Male 12:56 AM LEGAL INSTRUMENTS EXAMINER Gender Identity Not on file Sexual Orientation Not on file Occupation Industry Job Start Date Job End Date [employer] Not on file Not on file Not on natalie e documented as of this encounter Miscellaneous Notes * Telephone Encounter - Kaykay Reyes MD - 08/23/2020 12:48 PM CDT yes * Telephone Encounter - Iris Smith RN - 08/23/2020 10:38 AM CDT Verbal Order: Dr. Reyes: Call pharmacy and cancel order for tramadol. Sent by mistake. Called [facility] and had them cancelorder documented in this encounter Plan of Treatment [...] Diagnoses Not on filedocumented in this encounter Discontinued Medications Medication Sig Discontinue Reason Start Date End Da te traMADoL (ULTRAM) 50 mg tablet Take 1 tablet (50 mg total) by mouth every 6 (six) hours as needed for pain Error 08/23/2020 08/23/2020 documented as of this encounter Care Teams Chicle Grinder Feeder Relationship Specialty [place] [address] [facility] [address] [place] [address] Rheumatology 02/21/17 Lashay Downs, RN Registered Nurse Pain Management 06/17/17 Duke Do, RN Registered Nurse 09/09/17 Ngozi Petty MD Radiation Oncologist Radiation Oncology 02/05/19 Jose Roberto Marx MD Referring Physician Otolaryngology 02/05/19 documented as of this encounter
--- OUTSIDE RECORDS SUMMARY | 2024-06-14 16:49 | XMS_ITS | Encounter Summary ---
Author Organization [facility] Healthcare Address [address] [place] [address] Care Team Providers Care Torpedo Man Name Role Phone Criss Blanco MD Unavailable Lashay Downs RN Unavailable Unavailab Duke Goodwin RN Unavailable UnavailNgozi Husain MD Unavailable [phone] Jose Roberto Marx MD Unavailable [phone] Encounter Details Date Type Department Care Team (Late st Contact Info) Description 08/23/2020 Telephone Pain Management Center at [facility] [address] [address], [address] [place] [phone] Kaykay Reyes MD [address] [facility] [place] [address] Social History Tobacco Use Types [...] on file Legal Sex Male 12:56 AM PROCESSING TECH Gender Identity Not on file Sexual Orientation Not on file 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 Not on file Not on natalie e documented as of this encounter Miscellaneous Notes * Telephone Encounter - Aixa Boyer RN - 11/22/2021 2:18 PM CDT . documented in this encounter Plan of Treatment [...] on filedocumented in this encounter Care Teams Torpedo Man Relationship Specialty [place] [address] [facility] [address] [place] [address] Rheumatology 02/21/17 Lashay Downs, GAY Registered Nurse Pain Management 06/17/17 Duke oD, GAY Registered Nurse 09/09/17 Ngozi Petty MD Radiation Oncologist Radiation Oncology 02/05/19 Jose Roberto Marx MD Referring Physician Otolaryngology 02/05/19 documented as of this encounter
--- OUTSIDE RECORDS SUMMARY | 2024-06-14 16:49 | XMS_ITS | Encounter Summary ---
Author Organization [facility] Healthcare Address [address] [place] [address] Care Team Providers Care Marine Equipment Research Engineer Name Role Phone Criss Blanco MD Unavailable Lashay Downs RN Unavailable Unavailab Duke Goodwin RN Unavailable UnavailNgozi Husain MD Unavailable [phone] Jose Roberto Marx MD Unavailable [phone] Grey Tomas MD Primary Care Provider [phone] Encounter Details Date Type Department Care Team (Late st Contact Info) Description 08/15/2020 Telephone [facility] at [facility] [address] [address], [address] [place] [phone] Kaykay Reyes MD [address] [facility] [place] [address] Social History Tobacco Use Types [...] on file 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
--- OUTSIDE RECORDS SUMMARY | 2024-06-14 16:49 | XMS_ITS | Encounter Summary ---
Author Organization [facility] Healthcare Address [address] [place] [address] Care Team Providers Care Plastic Tool Maker Name Role Phone Criss Blanco MD Unavailable Lashay Downs RN Unavailable Unavailab Duke Goodwin RN Unavailable UnavailNgozi Husain MD Unavailable [phone] Jose Roberto Marx MD Unavailable [phone] Encounter Details Date Type Department Care Team (Late st Contact Info) Description 08/24/2020 Telephone Pain Management Center at [facility] [address] [address], [address] [place] [id number] Kaykay Reyes MD [address] [facility] [place] [address] Social History Tobacco Use Types [...] on file 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 What percentage of pain relief have you experienced so far? 30% 2. On a scale of 0-10 how would you rate your pain right now? 3/10 3. How does your pain compare to before your procedure? (Better, Same, Worse) better 4. Have you experienced any side effects such as nausea, vomiting, bleeding, or any signs of infection such as a fever, redness or drainage at the injection site? no *After 24 hours, if discomfort continues, apply ice or heat over the injection site(s) 20 minutes on 20 minutes off being cautious not to burn your skin. *Steroid injections may take up to a full week to experience the full effects* documented in this encounter Plan of Treatment [...] on filedocumented in this encounter Care Teams Plastic Tool Maker Relationship Specialty [place] [address] [address] Rheumatology 02/21/17 Lashay Downs, RN Registered Nurse Pain Management 06/17/17 Duke Do, RN Registered Nurse 09/09/17 Ngozi Petty MD Radiation Oncologist Radiation Oncology 02/05/19 Jose Roberto Marx MD Referring Physician Otolaryngology 02/05/19 documented as of this encounter
--- OUTSIDE RECORDS SUMMARY | 2024-06-14 16:49 | XMS_ITS | Encounter Summary ---
Author Organization [facility] Address [address] [place] [address] Phone Care Team Providers Care Corporate Scheduler Name Role Phone Criss Blanco MD Unavailable Lashay Downs RN Unavailable Unavailab Duke Goodwin RN Unavailable UnavailNgozi Husain MD Unavailable [phone] Jose Roberto Marx MD Unavailable [phone] Reason for Visit * Reason Onset Date Comments new pt appt 05/25/2020 Encounter Details Date Type Department Care Team (Late st Contact Info) Description 05/25/2020 Telephone [facility] Orthopaedic Surgery [facility] [facility] [address]th [place] [address] [place] [phone] Samuel Finley MD [address] [facility] [address] [place] [address] new pt appt Social History Tobacco Use Types Packs/Day Years [...] on file 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 WHITE (ENT) Insurance:MEDICARE Xrays: WILL OBTAIN DURING APPT WITH [facility] MRI:LSPINE 03/28/2020 CT:NO Injections: Pt: 2 MONTHS (RECENT) Smoker: NO (QUIT 25YRS AGO) Cardiac Disease: NO Diabetes: NO Pulmonary:NO Ht/Wt:73IN/208LB BMI:27.4 Litigation/WorkComp: Medications:TIZANIDINE 4MG-DOESN'T DO MUCH BUT DOES HELP HIM SLEEP Symptoms: PATIENT HAS LOW BACK PAIN THAT IS ALL RIGHT SIDED. HE STATES THAT IT GOES UP INTO HIS MIDBACK. THIS PAIN TENDS TO WORSEN THROUGHOUT THE DAY WITH ACTIVITY. ALL OF HIS PAIN IS RIGHT SIDED ONLY. THESE SYMPTOMS HAVE BEEN PRESENT FOR YEARS. HE DESCRIBES IT AN ACHING PAIN. HE DENIES ANY LEGPAIN/SYMPTOMS. HE DENIES ANY FALLS OR ISSUES WITH FINE MOTOR SKILLS. HE DENIES BOWEL/BLADDER CHANGES. NO RECENT FALLS. HE DOES REPORT A SLIGHT LEAN TO HIS RIGHT WHEN WALKING. HE HAS BEEN TOLD IN THE PAST THAT HE HAS A SMALL CURVATURE OF HIS SPINE. NO BONE DENSITY DONE IN THE PAST. HE WAS EVALUATED AT [facility] AND TOLD THAT HE WAS NOT A SURGICAL CANDIDATE. SINCE THEN HE HAS TRIED TO CONTACT SOMEONE THERE BUT HE STATES THAT THEY NEVER RETURN HIS CALLS. [facility] HAS OK'D THIS APPT. PATIENT HAS BEENSCHEDULED. PATIENT VERBALIZES UNDERSTANDING. STER OR DAMAGE CONTROL SPECIALIST documented in this encounter Plan of Treatment Not on file documented as of this encounter Visit Diagnoses Not on filedocumented in this encounter Care Teams Corporate Scheduler Relationship Specialty [place] [address] [facility] [address] [place] [address] Rheumatology 02/21/17 Lashay Downs, RN Registered Nurse Pain Management 06/17/17 Duke Do, RN Registered Nurse 09/09/17 Ngozi Petty MD Radiation Oncologist Radiation Oncology 02/05/19 Jose Roberto Marx MD Referring Physician Otolaryngology 02/05/19 documented as of this encounter
--- OUTSIDE RECORDS SUMMARY | 2024-06-14 16:49 | XMS_ITS | Encounter Summary ---
Author Organization [facility] Address [address] [place] [address] Phone Care Team Providers Care Assembly Line Machine Operator Name Role Phone Criss Blanco MD Unavailable Lashay Downs RN Unavailable Unavailab Duke Goodwin RN Unavailable UnavailNgozi Husain MD Unavailable [phone] Jose Roberto Marx MD Unavailable [phone] Reason for Referral * (Routine) - Closed Specialty Diagnoses / Procedures Referred By Alcira forrest Referred To Contact Diagnoses Dysphonia Procedures PRIME BROKER videostroboscopy - Nathanael Valdez MD Phone: tel: fax: [facility] (All Locations) Referral ID Status Reason Start Date Expiration Date Visits Re quested Visits Authorized [id number] Closed 12/07/2019 06/17/2021 1 1 Encounter Details Date Type Department Care Team (Late st Contact Info) Description 12/07/2019 Orders Only [facility] ENT [address] [facility] [address] [place] [phone] Nathanael Valdez MD [address] [place] [address] Dysphonia (Primary Dx) Social History Tobacco Use Types [...] on file 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 Gender Identity Not on file Sexual Orientation Not on file 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 on file Not on natalie e documented as of this encounter Plan of Treatment Not on file documented as of this encounter Visit Diagnoses Diagnosis Dysphonia- Primary documented in this encounter Orders PRIME BROKER Count Last Ordered Date First Orde red Date PRIME BROKER VIDEOSTROBOSCOPY 1 12/08/2019 documented in this encounter Care Teams Assembly Line Machine Operator Relationship Specialty [place] [address] [facility] [address] [address] [place] [address] Rheumatology 02/21/17 Lashay Downs, RN Registered Nurse Pain Management 06/17/17 Duke Do, RN Registered Nurse 09/09/17 Ngozi Petty MD Radiation Oncologist Radiation Oncology 02/05/19 Jose Roberto Marx MD Referring Physician Otolaryngology 02/05/19 documented as of this encounter
--- OUTSIDE RECORDS SUMMARY | 2024-06-14 16:49 | XMS_ITS | Encounter Summary ---
Author Organization [facility] Address [address] [place] [address] Phone Care Team Providers Care General Surgeon Name Role Phone Criss Blanco MD Unavailable Lashay Downs RN Unavailable Unavailab Duke Goodwin RN Unavailable UnavailNgozi Husain MD Unavailable [phone] Jose Roberto Marx MD Unavailable [phone] Reason for Referral * Diagnostic Imaging (Routine) - Closed Specialty Diagnoses / Procedures Referred By Contac t Referred To Contact Diagnoses Lumbar spondylosis Procedures XR Scoliosis 4 or 5 Views Samuel Finley MD Phone: tel: fax: [facility] Referral ID Status Reason Start Date Expiration Date Visits Re quested Visits Authorized [id number] Closed 06/15/2020 07/15/2021 1 1 MASTER Reason for Visit * Reason Comments New Patient * Consultation (Routine) - Closed Specialty Diagnoses / Procedures Referred By Contac t Referred To Contact Orthopedic Surgery Diagnoses Spine pain Viraj Romeo, ZOILA [address] [place] [address] Phone: tel: fax: [facility] (All Locations) Referral ID Status Reason Start Date Expiration Date V isits Requested Visits Authorized [id number] Closed Specialty Services Required 06/23/2020 12/20/2020 1 1 Encounter Details Date Type Department Care Team (Late st Contact Info) Description 06/21/2020 2:30 PM DIVEMASTER Office Visit [facility] Orthopaedic Surgery [address] [facility] 6th [place] [address] [place] [address] Samuel Finley MD [address] [facility] [address] [place] [address] Lumbar spondylosis (Primary Dx); Spine pain; Chronic midline low back pain without sciatica Social History Tobacco Use Types Packs/Day Years [...] on file Legal Sex Male 12:56 AM 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 Chief Complaint: Patient is a 74 y.o. male Flexible Laryngoscopy with KTP laser photoablation - Bilateral with chief complaint of axial back pain HISTORY OF PRESENT ILLNESS: Samuel Sanchez 74-year-old healthy appearing male who presents with a 10-15 year history of chronic low back pain. The pain does not radiate into either of his lower extremities. The patient doesnot have any symptoms of neurogenic claudication and he is currently walking 2-3 miles per day. Thepatient denies numbness or weakness in either of his lower extremities. The patient denies bowel orbladder issues. For his low back pain he has previously tried 2 spinal injections that did not improve his pain and he is currently doing physical therapy. She states that the physical therapy is nothelping his back pain. Past Medical History: Diagnosis Date [...] 1981 Bisept tendonitis ??? HX OTHER MEDICAL 1993 Pinched Prostate ??? HX OTHER MEDICAL 2000 kidney stone ??? HX OTHER MEDICAL hemorroids; Comments: Had done at [facility] in [place] ??? HX OTHER MEDICAL bladder infection ??? HX OTHER MEDICAL kidney stone ??? Malignant neoplasm of prostate (CMS/HCC) 1998 prostate ??? Rheumatoid arthritis (CMS/HCC) Past Surgical History: Procedure Laterality Date ??? BICEPS TENODESIS Left ??? EAR SURGERY Left repair perforated eardrum ??? LARYNGOSCOPY Right 01/09/2019 Direct laryngoscopy with biopsy ??? LARYNGOSCOPY Right 02/16/2019 Suspension microlaryngoscopy with KTP laser photoablation Right vocal fold lesion ??? LITHOTRIPSY s - 2018 5 or 6 times ??? ORCHIECTOMY Right 1970's ??? PROSTATE SURGERY 1970 Pinched Prostate: surgically repaired ??? ROTATOR CUFF REPAIR Right and removal of bone spurs ??? SHOULDER SURGERY ??? VASECTOMY 1969' (Not in a hospital admission) Allergies Allergen Reactions ??? Perfume Swelling, Cough and Shortness of breath Social History Tobacco Use ??? Smoking status: Former Smoker Packs/day: 1.50 Years: 30.00 Pack years: 45.00 Types: Cigarettes Start date: 1958 Quit date: 1995 Years since quittin.0 ??? Smokeless tobacco: Never Used Substance Use Topics ??? Alcohol use: Yes Alcohol/week: 3.0 standard drinks Types: 3 Standard drinks or equivalent per week Frequency: 2-3 times a week Binge frequency: Weekly Family History Adopted: Yes Problem Relation Age of Onset ??? Other Other adopted ??? Other Other adopted ??? Anesthesia problems Neg Hx Current Outpatient Medications: ??? biotin 5,000 mcg tablet,disintegrating, Take 5,000 mcg by mouth daily, Disp: , Rfl: ??? famotidine (PEPCID) 40 mg tablet, Take 40 mg by mouth daily, Disp: , Rfl: ??? methotrexate 2.5 mg tablet, Take 6 tablets by mouth once a week, Disp: , Rfl: ??? omeprazole (PriLOSEC) 40 mg capsule, PLEASE SPECIFY DIRECTIONS, REFILLS AND QUANTITY, Disp: , Rfl: ??? tamsulosin (FLOMAX) 0.4 mg extended release capsule, Take 0.4 mg by mouth daily , Disp: , Rfl: ??? tiZANidine (ZANAFLEX) 4 mg tablet, TAKE 1 TABLET BY MOUTH EVERY 8 HOURS NEEDED FOR MUSCLE SPASM, Disp: , Rfl: ??? vit A/vit C/vit E/zinc/copper (PRESERVISION AREDS ORAL), Take by mouth, Disp: , Rfl: REVIEW OF SYSTEMS: Please see review of systems noted in the patient questionnaire. Reviewed with patient. Pertinent positives include see HPI. VITALS: Vitals Ht 185.4 cm (6' 1 ) Wt 95.3 kg (210 lb) BMI 27.71 kg/m?? Body mass index is 27.71 kg/m??. PHYSICAL EXAMINATION: General appearance: In no acute distress, well developed, well nourished Gait: Normal gait Head: Normocephalic, atraumatic Oral Cavity: Mucosa moist Skin: Warm and dry, normal turgor and color Vascular: Peripheral pulses palpable in both wrists and both feet Extremities: No cyanosis, clubbing or edema noted Musculoskeletal: Strong muscles tone Speech: Normal Involuntary movements: No tremors seen Spine: Normal alignment Upper Strength Deltoid Biceps Triceps Wrist Extension Wrist Flexion Relief Pilot Right 5 5 5 5 5 5 Left 5 5 5 5 5 5 Lower Strength Iliopsoas Quads Hamstrings Tib Ant Gastroc Soleus EHL Right 5 5 5 5 5 5 Left 5 5 5 5 5 5 Reflex Biceps Brachioradialis Triceps Right 2 2 2 Left 2 2 2 Reflex Patella Achilles Right 2 2 Left 2 2 Clonus Negative Hoffmans Negative Sens: Intact to light touch in bilateral lower extremities REVIEW OF X-RAY/STUDIES: Scoliosis films were reviewed today as well as lumbar flexion-extension films. There is no evidence of spondylolisthesis in the lumbar spine. The disc heights are relatively well maintained throughout the lumbar spine. There is some mild degenerative disease diffusely in the lumbar spine. The patient did have an MRI in March however he did not bring his disc with him for review today. The patient does have mild to moderate thoracolumbar kyphosis however his overall global sagittal alignment is fairly well maintained. ASSESSMENT/PLAN: 74-year-old male with axial back pain. Patient does not have any obvious indications for surgical intervention at this time. It sounds like he is having facet arthropathy and facet related low back pain. We will refer the patient to PM&R for back pain and possible a facet joint injection or radiofrequency ablation. FOLLOW-UP: RACHEL Cahndra MD [facility] Spine Cosigned by Samuel Finley MD at 06/21/2020 3:29 PM DIVEMASTER MASTER MASTER Associated attestation - Samuel Finley MD - 06/21/2020 3:29 PM DIVEMASTER I have seen and examined the patient. I agree with the findings and plan of care as documented in the resident/fellow's note. My total encounter time on 06/21/2020 was 20 minutes which was spent in the activities documented in the note. This includes time spent prior to the visit and after the visit in direct care of the patient. This time does not include time spent in any separately reportable services. 0 74-year-old gentleman with longstanding low back pain. It is worse when seated. It is relieved witha bit of positional change. It is also made better with getting up and walking around. I think he most likely has some component of facet arthropathy contributing to this. While I do not think that surgical intervention is appropriate he may benefit from radiofrequency ablation. We will help him get referrals for that. All of his questions were answered today. documented in this encounter Plan of Treatment Not on file documented as of this encounter Results * XR Scoliosis 4 or 5 Views (06/21/2020 12:42 PM DIVEMASTER) Anatomical Region Laterality Modality Spine N/A Computed Radiogr aphy 06/21/2020 1:07 PM DIVEMASTER Impressions 06/21/2020 1:07 PM DIVEMASTER 1. 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 2. Mild rightward coronal truncal imbalance. No sagittal imbalance or pelvic obliquity. Electronically signed by: Sriram Rosa M.D. Narrative 06/21/2020 1:07 PM DIVEMASTER EXAMINATION: XR SCOLIOSIS 4 OR 5 VW HISTORY: Lumbar spine canal stenosis COMPARISON: Radiographs 05/15/2012 FINDINGS: AP and lateral images from the skull through the feet including the entire spine using EOS system and 2 radiographs of lumbar spine are submitted for interpretation. Minimal retrolisthesis of L2-3 which is unchanged with flexion or extension. Mild multilevel degenerative disc disease greatest from L1-L4. Facet arthropathy of the lower lumbar spine. Mild anterior wedging at the T11 and T12 vertebral body with focal kyphosis. Mild rightward coronal truncal imbalance. No sagittal truncal imbalance. No pelvic obliquity. Procedure Note Sriram Rosa MD - 06/21/2020 EXAMINATION: XR SCOLIOSIS 4 OR 5 VW HISTORY: Lumbar spine canal stenosis COMPARISON: Radiographs 05/15/2012 FINDINGS: AP and lateral images from the skull through the feet including the entire spine using EOS system and 2 radiographs of lumbar spine are submitted for interpretation. Minimal retrolisthesis of L2-3 which is unchanged with flexion or extension. Mild multilevel degenerative disc disease greatest from L1-L4. Facet arthropathy of the lower lumbar spine. Mild anterior wedging at the T11 and T12 vertebral body with focal kyphosis. Mild rightward coronal truncal imbalance. No sagittal truncal imbalance. No pelvic obliquity. IMPRESSION: 1. 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 2. Mild rightward coronal truncal imbalance. No sagittal imbalance or pelvic obliquity. Electronically signed by: Sriram Rosa M.D. Samuel Finley MD IMG XR PROCEDURES Final Result documented in this encounter Visit Diagnoses Diagnosis Lumbar spondylosis- Primary Lumbosacral spondylosis without myelopathy Spine pain Unspecified backache Chronic midline low back pain without sciatica Lumbar spondylosis Lumbosacral spondylosis without myelopathy documented in this encounter Discontinued Medications Medication Sig Discontinue Reason Start Date End Da te esomeprazole DR (NexIUM) 20 mg capsuleIndications:Carlotta tment of Non-Bleeding Gastric Disorder Take 20 mg by mouth daily before breakfast Therapy completed 06/21/2020 documented as of this encounter Orders Outpatient Referral Count Last Ordered Date Fir st Ordered Date AMB REFERRAL TO ORTHOPEDIC SURGERY 1 2020 documented in this encounter Care Teams General Surgeon Relationship Specialty [place] [address] [facility] [address] [place] [address] Rheumatology 02/21/17 Lashay Downs, RN Registered Nurse Pain Management 06/17/17 Duke Do, RN Registered Nurse 09/09/17 Ngozi Petty MD Radiation Oncologist Radiation Oncology 02/05/19 Jose Roberto Marx MD Referring Physician Otolaryngology 02/05/19 documented as of this encounter
--- OUTSIDE RECORDS SUMMARY | 2024-06-14 16:49 | XMS_ITS | Encounter Summary ---
Author Organization [facility] Healthcare Address [address] [place] [address] Care Team Providers Care Lease Out Worker Name Role Phone Criss Blanco MD Unavailable Lashay Downs RN Unavailable Unavailab Duke Goodwin RN Unavailable UnavailNgozi Husain MD Unavailable [phone] Jose Roberto Marx MD Unavailable [phone] Reason for Referral * Diagnostic Imaging (Routine) - Closed Specialty Diagnoses / Procedures Referred By Contac t Referred To Contact Diagnoses Lumbar spondylosis Procedures XR Scoliosis 4 or 5 Views Samuel Finley MD Phone: tel: fax: [facility] Referral ID Status Reason Start Date Expiration Date Visits Re quested Visits Authorized [id number] Closed 06/15/2020 07/15/2021 1 1 R SYSTEM INSTALLER Reason for Visit * Diagnostic Imaging (Routine) - Closed Specialty Diagnoses / Procedures Referred By Contac t Referred To Contact Diagnoses Lumbar spondylosis Procedures XR Scoliosis 4 or 5 Views Samuel Finlye MD Phone: tel: fax: [facility] Referral ID Status Reason Start Date Expiration Date Visits Re quested Visits Authorized [id number] Closed 06/15/2020 07/15/2021 1 1 Encounter Details Date Type Department Care Team (Latest Contact Info) Description 06/21/2020 12:26 PM SOLAR SYSTEM INSTALLER - 06/21/2020 11:59 PM SOLAR SYSTEM INSTALLER Hospital Encounter [facility] [address] [place] [address] Samuel Finley MD [address] [facility] [address] [place] [address] Lumbar spondylosis Discharge Disposition: Discharge to home [...] on file Legal Sex Male 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 2. Mild rightward coronal truncal imbalance. No sagittal imbalance or pelvic obliquity. Electronically signed by: Sriram Rosa M.D. Narrative 06/21/2020 1:07 PM SOLAR SYSTEM INSTALLER EXAMINATION: XR SCOLIOSIS 4 OR 5 VW [...] myelopathy documented in this encounter Care Teams Lease Out Worker Relationship Specialty [place] [address] [facility] [address] [place] [address] Rheumatology 02/21/17 Lashay Downs, RN Registered Nurse Pain Management 06/17/17 Duke Do, RN Registered Nurse 09/09/17 Ngozi Petty MD Radiation Oncologist Radiation Oncology 02/05/19 Jose Roberto Marx MD Referring Physician Otolaryngology 02/05/19 documented as of this encounter
--- OUTSIDE RECORDS SUMMARY | 2024-06-14 16:49 | XMS_ITS | Encounter Summary ---
Author Organization [facility] Address [address] [place] [address] Phone Care Team Providers Care Flatwork Supervisor Name Role Phone Criss Blanco MD Unavailable Lashay Downs RN Unavailable Unavailab Duke Goodwin RN Unavailable UnavailNgozi Husain MD Unavailable Jose Roberto Marx MD Unavailable [phone] Reason for Visit * Reason Comments Squamous Cell Carcinoma Encounter Details Date Type Department Care Team (Late st Contact Info) Description 05/20/2020 9:40 AM BUDGET REPORT CLERK Office Visit [facility] ENT [address] [facility] Medical Office Building [address] [place] [address] Nathanael Valdez MD [address] [place] [address] Squamous cell carcinoma of larynx (CMS/HCC) (Primary [...] on file Legal Sex Male 12:56 AM BUDGET REPORT CLERK Gender Identity Not on file Sexual Orientation Not on file Occupation Industry Job Start Date Job End Date [employer] Not on file Not on file Not on natalie e documented as of this encounter Progress Notes * Nathanael Valdez MD - 05/20/2020 9:40 AM CST PATIENT NAME: Samuel Sanchez : 1945 DOS: 05/20/2020 REFERRING PHYSICIAN: Self Referral CHIEF COMPLAINT: Chief Complaint Patient presents with ??? Squamous Cell Carcinoma INTERVAL HISTORY: Samuel Sanchez is a 74 y.o. 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 He notes that his voice was strained for about 1 week post procedure, but has returned to normal and is doing well. He is doing well and has no new issues. He denies dysphagia, odynophagia, referred otalgia, or hemoptysis. OUTCOMES: GFI: 0 VHI-10: 0 VCI: 0 RSI: 6 EXAM: Physical Exam Constitutional: General: He is not in acute distress. Appearance: Normal appearance. HENT: Head: Normocephalic. Right Ear: External ear normal. Left Ear: External ear normal. Nose: Nose normal. Mouth/Throat: Lips: [place]. No lesions. Neck: Comments: The patient's voice sounds mildly rough but without strain. The pitch is expected for age& gender. Pulmonary: Effort: Pulmonary effort is normal. Neurological: Mental Status: He is alert and oriented to person, place, and time. Cranial Nerves: No cranial nerve deficit. Psychiatric: Mood and Affect: Mood and affect normal. Speech: Speech normal. Behavior: Behavior normal. Behavior is cooperative. Judgment: Judgment normal. LARYNGEAL EXAM: Flexible videostroboscopy was performed [...] the bilateral vocal folds. During phonation, glottic closureis complete. The mucosal wave is intact and chasing. There is mild supraglottic hyperfunction present on exam. The scope was then removed from the patient's nose, and he tolerated the procedure well. ASSESSMENT/PLAN: Squamous cell carcinoma of larynx (CMS/HCC) No evidence of disease on examination today. Continue routine surveillance. No orders of the defined types were placed in this encounter. DISPOSITION: No follow-ups on file. Nathanael Valdez MD, FACS Refinery Operator [employer] [facility] Airway [facility] Division of Laryngology Department of Otolaryngology--Head & Neck Surgery Portions of this note were dictated using M*Modal Fluency Direct. Globe Tester variances may occur. ET REPORT CLERK documented in this encounter Miscellaneous Notes * Assessment & Plan Note - Nathanael Valdez MD - 05/20/2020 10:02 AM BUDGET REPORT CLERK Associated Problem(s): 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) No evidence of disease on examination today. Continue routine surveillance. ET REPORT CLERK documented in this encounter Plan of Treatment Not on file 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)- Primary Malignant neoplasm of larynx, unspecified site Dysphonia documented in this encounter Care Teams Flatwork Supervisor Relationship Specialty [place] [address] [facility] [address] [place] [address] Rheumatology 02/21/17 Lashay Downs, GAY Registered Nurse Pain Management 06/17/17 Duke Do, RN Registered Nurse 09/09/17 Ngozi Petty MD Radiation Oncologist Radiation Oncology 02/05/19 Jose Roberto Marx MD Referring Physician Otolaryngology 02/05/19 documented as of this encounter
--- OUTSIDE RECORDS SUMMARY | 2024-06-14 16:49 | XMS_ITS | Encounter Summary ---
Author Organization [facility] Address [address] [place] [address] Phone Care Team Providers Care Mill Attendant Name Role Phone Criss Blanco MD Unavailable Lashay Downs RN Unavailable Unavailab Duke Goodwin RN Unavailable UnavailNgozi Husain MD Unavailable Jose Roberto Marx MD Unavailable [phone] Reason for Visit * Reason Comments Follow-up larynx cancer Encounter Details Date Type Department Care Team (Late st Contact Info) Description 04/08/2020 9:00 AM CRITICAL CARE NURSE PRACTITIONER Office Visit [facility] ENT [address] [facility] Medical Office Building [address] [place] [address] Nathanael Valdez MD [address] [place] [address] Squamous cell carcinoma of larynx (CMS/HCC) (Primary [...] on file Legal Sex Male 12:56 AM CRITICAL CARE NURSE PRACTITIONER Gender Identity Not on file Sexual Orientation Not on file 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 on file Not on natalie e documented as of this encounter Progress Notes * Nathanael Valdez MD - 04/08/2020 9:00 AM CST PATIENT NAME: Samuel Sanchez : 1945 DOS: 04/08/2020 REFERRING PHYSICIAN: ZOILA Kuo CHIEF COMPLAINT: Chief Complaint Patient presents with ??? Follow-up larynx cancer INTERVAL HISTORY: Samuel Sanchez is a 74 y.o. male who presents today for follow-up of his [id number] glottic squamous cell carcinoma. He is doing [...] Not enlarged, swollen or pale. Mouth/Throat: Lips: [place]. No lesions. Mouth: Mucous membranes are moist. [...] encounter. DISPOSITION: No follow-ups on file. Nathanael Valdze MD, FACS Clinical Lab Specialist [facility]way [facility] Division of Laryngology Department of Otolaryngology--Head & Neck Surgery Portions of this note were dictated using M*Modal Fluency Direct. Storage Management Architect variances may occur. ICAL CARE NURSE PRACTITIONER documented in this encounter Miscellaneous Notes * Assessment & Plan Note - Nathanael Valdez MD - 04/08/2020 9:15 AM CRITICAL CARE NURSE PRACTITIONER Associated Problem(s): 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) There are new areas of leukoplakia on [...] should really consider the possibility of radiation. ICAL CARE NURSE PRACTITIONER documented in this encounter Plan of Treatment Not on file 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)- Primary Malignant neoplasm of larynx, unspecified site Dysphonia documented in this encounter Discontinued Medications Medication Sig Discontinue Reason Start Date End Da te hydroxychloroquine (PLAQUENIL) 200 mg tablet Take 400 mg by mouth daily 04/08/2020 ranitidine (ZANTAC) 300 mg capsuleIndications:gastr oesophageal reflux disease Take 300 mg by mouth nightly 04/08/2020 rOPINIRole (REQUIP) 1 mg tabletIndications:Restle ss Legs Syndrome Take 1 mg by mouth daily as needed 04/08/2020 vit C,F-Bc-ogimw-lutein-zeax an [id number] sh-tgyd-wd-mg capsule Take by mouth 04/08/2020 documented as of this encounter Historical Medications * This list may reflect changes made after this encounter. vit A/vit C/vit E/zinc/copper (PRESERVISION AREDS ORAL) Take 1 capsule by mouth 2 (two) times a day famotidine (PEPCID) 40 mg tablet Take 1 tablet (40 mg total) by mouth nightly 03/28/2020 02/01/2023 tiZANidine (ZANAFLEX) 4 mg tabletIndication s:Muscle Spasm Take 4 mg by mouth every 6 (six) hours as needed 03/22/2020 04/30/2022 omeprazole (PriLOSEC) 40 mg capsuleIndicatio ns:GERD Take 40 mg by mouth every morning 03/22/2020 12/20/2020 methotrexate 2.5 mg tablet Take 6 tablets (15 mg total) by mouth once a week saturday02/02/2020 02/01/2023 added in this encounter Care Teams Mill Attendant Relationship Specialty [place] [address] [facility] [address] [place] [address] Rheumatology 02/21/17 Lashay Downs, RN Registered Nurse Pain Management 06/17/17 Duke Do, RN Registered Nurse 09/09/17 Ngozi Petty MD Radiation Oncologist Radiation Oncology 02/05/19 Jose Roberto Marx MD Referring Physician Otolaryngology 02/05/19 documented as of this encounter
--- OUTSIDE RECORDS SUMMARY | 2024-06-14 16:49 | XMS_ITS | Encounter Summary ---
Author Organization [facility] Address [address] [place] [address] Care Team Providers Care Quality Officer Name Role Phone Criss Blanco MD Unavailable Lashay Downs RN Unavailable Unavailab Duke Goodwin RN Unavailable UnavailNgozi Husain MD Unavailable [phone] Jose Roberto Mrax MD Unavailable [phone] Encounter Details Date Type Department Care Team (Late st Contact Info) Description 04/18/2020 2:45 PM THERAPIST PHYSICAL - 04/18/2020 3:10 PM THERAPIST PHYSICAL Surgery [facility] Operating Room [address] [place] [address] Nathanael Valdez MD [address] [place] [address] Flexible Laryngoscopy with KTP laser photoablation Surgery Details Date/Time Status Location OR Service Patient Class Case Class Case Type Trauma Case? 04/18/2020 2:45 PM Posted [facility] OPERATING ROOM OR Otolaryngology Outpatient Elective Panel 1 Procedure LRB Anes Op Region Wound Class Comments Flexible Laryngoscopy with KTP laser photoablation Bilateral Local Class II - Clean Contaminated Surgeon Surgeon Role Service Panel Nathanael Valdez MD Primary Otolaryngology 1 Mima Trevino MD Resident - Assisting Ot olaryngology 1 Special Needs KTP laser documented in this encounter Social History Tobacco Use Types Packs/Day Years Used Date Smoking Tobacco: Former Cigarettes 1.5 37 1 959 - 1995 Smokeless Tobacco: Never Alcohol Use Standard Drinks/Week Comments Yes 3 (1 standard drink = 0.6 oz pur e alcohol) AUDIT-C Answer Date Recorded Frequency of Alcohol Consumption 2-3 times a wejavon k 01/30/2019 Average Number of Drinks Not on file 019 Frequency of Binge Drinking Weekly 01/03 Sex and Gender Information Value Date Recorded Sex Assigned at Not on file Legal Sex Male 12:56 AM THERAPIST PHYSICAL Gender Identity Not on file Sexual Orientation Not on file 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 on file Not on natalie e documented as of this encounter Last Filed Vital Signs Vital Sign Reading Time Taken Comments Blood Pressure 135/86 04/18/2020 2:58 PM THERAPIST PHYSICAL Pulse 67 04/18/2020 2:58 PM THERAPIST PHYSICAL Temperature 36.5 ??C (97.7 ??F) 04/18/2020 2:50 PM CS T Respiratory Rate 20 04/18/2020 2:54 PM THERAPIST PHYSICAL Oxygen Saturation 97% 04/18/2020 2:58 PM THERAPIST PHYSICAL Inhaled Oxygen Concentration - - Weight - - Height - - Body Mass Index - - documented in this encounter Medications at Time [...] Nathanael Valdez MD at 04/18/2020 2:52 PM THERAPIST PHYSICAL APIST PHYSICAL APIST PHYSICAL Source Note - Nathanael Valdez MD - 04/08/2020 9:00 AM THERAPIST PHYSICAL PATIENT NAME: Samuel Sanchez : 1945 DOS: 04/08/2020 REFERRING PHYSICIAN: ZOILA Kuo CHIEF COMPLAINT: Chief Complaint Patient presents with ??? Follow-up larynx cancer INTERVAL HISTORY: Samuel Sanchez is a 74 y.o. male who presents today for follow-up of his [id number] glottic squamous cell carcinoma. He is doing [...] Not enlarged, swollen or pale. Mouth/Throat: Lips: [place]. No lesions. Mouth: Mucous membranes are moist. [...] follow-ups on file. Nathanael Valdez MD, FACS Crude Tester [facility] Voice [facility] Airway Center Division of Laryngology Department of Otolaryngology--Head & Neck Surgery Portions of this note were dictated using M*Modal Fluency Direct. Windows Infrastructure Engineer variances may occur. APIST PHYSICAL documented in this encounter Miscellaneous Notes * [...] None Condition: Stable to the PACU Attestation: INathanael MD, was present and participated in the entirety of the procedure APIST PHYSICAL documented in this encounter Plan of Treatment Not on file documented as of this encounter Procedures Procedure Name Priority Date/Time Associated Diagnosis Comments LASER KTP 04/18/2020 2:39 PM THERAPIST PHYSICAL Squamous cell carcinoma of larynx (CMS/HCC) Special [...] Action Date Dose Rate Site lidocaine (XYLOCAINE) 5 mL in sodium chloride 0.9% 5 mL topical solution As needed, Starting on 04/18/20 at 1442, Intra-Op Given 04/18/2020 2:42 PM THERAPIST PHYSICAL 10 mL Surgical Site oxymetazoline (AFRIN) 0.05 % nasal spray As needed, Starting on 04/18/20 at 1443, Intra-Op Given 04/18/2020 2:43 PM THERAPIST PHYSICAL 2 sprays documented in this encounter Active and Recently Administered Medications Times are shown in THERAPIST PHYSICAL. PRN Medication Order 04/16/2020 04/17/2020 04/18/2020 lidocaine (XYLOCAINE) 5 mL in sodium chloride 0.9% 5 mL topical solution (CANCELED) As needed, Starting on 04/18/20 at 1442, Intra-Op 1442 (Given - Provid er: Nathanael Valdez MD) oxymetazoline (AFRIN) 0.05 % nasal spray (CANCELED) As needed, Starting on 04/18/20 at 1443, Intra-Op 1443 (Given - Provid er: Nathanael Valdez MD - Comment: with 4% lidocaine) documented in this encounter Orders Diet Count Last Ordered Date First Orde red Date ADULT DISCHARGE DIET 1 04/18/2020 Nursing Count Last Ordered Date First Orde red Date DISCHARGE ACTIVITY 1 04/18/2020 DISCHARGE CALL PROVIDER 2 04/18/2020 documented in this encounter Care Teams Quality Officer Relationship Specialty [place] [address] [facility] [address] [place] [address] Rheumatology 02/21/17 Lashay Downs, RN Registered Nurse Pain Management 06/17/17 Duke Do, RN Registered Nurse 09/09/17 Ngozi Petty MD Radiation Oncologist Radiation Oncology 02/05/19 Jose Roberto Marx MD Referring Physician Otolaryngology 02/05/19 documented as of this encounter
--- OUTSIDE RECORDS SUMMARY | 2024-06-14 16:49 | XMS_ITS | Encounter Summary ---
Author Organization [facility] Address [address] [place] [address] Phone Care Team Providers Care Production Trainer Name Role Phone Criss Blanco MD Unavailable Lsahay Downs RN Unavailable Unavailab Duke Goodwin RN Unavailable UnavailNgozi Husain MD Unavailable [phone] Jose Roberto Marx MD Unavailable [phone] Reason for Referral * Consultation (Routine) - Closed Specialty Diagnoses / Procedures Referred By Conthermila t Referred To Contact Pain Management Diagnoses Chronic midline low back pain without sciatica Lumbar spondylosis Spine pain Samuel Finley MD Phone: tel: fax: Kaykay Reyes MD [address] [facility] [address] [place] [address] Phone: tel: fax: Referral ID Status Reason Start Date Expiration Date V isits Requested Visits Authorized [id number] Closed Specialty Services Required 06/22/2020 12/26/2020 12 12 Question Answer Please select the performing region: [facility] [[id number]] To provider: KAYKAY REYES [[id number]] # of visits: 1 Comments Treatment and evaluation for consideration of facet joint injections and RFA. Please call patient to schedule an appointment. LE OPERATOR Encounter Details Date Type Department Care Team (Late st Contact Info) Description 06/22/2020 Orders Only [facility] Orthopaedic Surgery [address] [facility] [address] [place] [address] [place] [address] Samuel Finley MD [address] [facility] [address] [place] [address] Chronic midline low back pain without sciatica (Primary Dx); Lumbar spondylosis; Spine pain Social History Tobacco Use Types Packs/Day [...] on file Legal Sex Male 12:56 AM MINGLE OPERATOR Gender Identity Not on file Sexual Orientation Not on file 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 on file Not on natalie e documented as of this encounter Plan of Treatment Scheduled Referrals Name Type Priority Associated Diagnoses Order Schedule Ambulatory referral to Pain Management Outpatient Referral Routine Chronic midline low back pain without sciatica Lumbar spondylosis Spine pain Expected: 06/22/2020 (Approximate), Expires: 06/22/2021 documented as of this encounter Visit Diagnoses Diagnosis Chronic midline low back pain without sciatica- Primary Lumbar spondylosis Lumbosacral spondylosis without myelopathy Spine pain Unspecified backache documented in this encounter Care Teams Production Trainer Relationship Specialty [place] [address] [facility] [address] [place] [address] Rheumatology 02/21/17 Lashay Downs, GAY Registered Nurse Pain Management 06/17/17 Duke Do, GAY Registered Nurse 09/09/17 Ngozi Petty MD Radiation Oncologist Radiation Oncology 02/05/19 Jose Roberto Marx MD Referring Physician Otolaryngology 02/05/19 documented as of this encounter
--- OUTSIDE RECORDS SUMMARY | 2024-06-14 16:49 | XMS_ITS | Encounter Summary ---
Author Organization [facility] Healthcare Address [address] [place] [address] Care Team Providers Care Chyron Operator Name Role Phone Criss Blanco MD Unavailable Lashay Downs RN Unavailable Unavailab Duke Goodwin RN Unavailable UnavailNgozi Husain MD Unavailable [phone] Jose Roberto Marx MD Unavailable [phone] Encounter Details Date Type Department Care Team (Latest Contact Info) Description 08/23/2020 8:57 AM CDT - 08/23/2020 11:59 PM CDT Hospital Encounter [facility] at [facility] [address] [address] [place] [id number] Kaykay Reyes MD [address] [facility] [place] [address] Spondylosis of lumbar region without myelopathy or radiculopathy (Primary Dx); Lumbosacral spondylosis without myelopathy; DDD (degenerative disc disease), lumbar; Chronic pain [...] on file 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 Gender Identity Not on file Sexual Orientation Not on file 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 Not on file Not on natalie e documented as of this encounter Last Filed Vital Signs Vital Sign Reading Time Taken Comments Blood Pressure 133/74 08/23/2020 10:20 AM CDT Pulse 58 08/23/2020 10:20 AM CDT Temperature 36.4 ??C (97.5 ??F) 08/23/2020 9:08 AM CD T Respiratory Rate 18 08/23/2020 10:20 AM CDT Oxygen Saturation 98% 08/23/2020 10:20 AM CDT Inhaled Oxygen Concentration - - Weight 95.3 kg (210 lb) 08/23/2020 9:08 AM CDT Height 185.4 cm (6' 1 ) 08/23/2020 9:08 AM CDT Body Mass Index 27.71 08/23/2020 9:08 AM CDT documented in this encounter Discharge Instructions * Patient Instructions* Alanis Da Silva RN - 08/23/2020 9:30 AM CDT PAIN MANAGEMENT CENTER DISCHARGE INSTRUCTIONS [phone] (Saturday-Saturday 7:30 am - 4:00 pm) PLAN: PROCEDURE TODAY: Right Lumbosacral facet steroid Inejection PROCEDURE AT NEXT VISIT: DIAGNOSTIC TEST(S): FOLLOW UP: as needed The Pain Management [...] to the date of need. o Call [phone] choose option #1 for the Prescription Refill [...] please contact the Pain Management Center at [phone]. For any questions about your visit or your procedure, please call the Pain Management Center [phone] (Saturday-Saturday 7:30 am - 4:00 pm). Please [...] or go to the nearest Emergency Room. PAIN MANAGEMENT CENTER PATIENT EDUCATION STEROID INJECTION POST-PROCEDURE INFORMATION SHEET WHEN YOU GET HOME: ??? Resume your normal medication. ??? Resume your normal diet. ??? For soreness, you may place an ice bag once an hour at the injection site for 15-20 minutes. After 24 hours, you may use heat at the injection site. ??? DO NOT lie on, or fall asleep with the heating pad. ??? You may shower daily. ??? To prevent infection, do not take a bath, swim, or sit in a Jacuzzi or hot tub for the next 2 days. ??? Drink plenty of fluids-to decrease your chance of a headache, which may occur occasionally after injection. IT MAY TAKE THE STEROID MEDICATION 3-7 DAYS TO START WORKING AND CAN TAKE UP TO TWO WEEKS FOR FULL BENEFIT OF MEDICATION. You may experience side effects of the steroid medication. Some of these side effects include: ??? Dizziness or light headedness upon standing. ??? Steroid Flushing - flushing of the face and chest that can last several days and be accompanied by a feeling of warmth or low grade increase in temperature. ??? Increased pain or soreness or achiness at the injection site. ??? Slight weakness or numbness in arms or legs. ??? Anxiety, trouble sleeping ??? Increase in blood sugars Serious complications are rare, but could include: ??? Severe Allergic Reaction ??? Bleeding ??? Infection indicated but not limited to fever over 101, warmth/redness/drainage to injection site ??? Severe Headache when sitting or standing that is resolved when lying down ??? Loss of balance/difficulty walking ??? Loss of bowel or bladder control ??? Increasing muscle weakness or prolonged numbness in the arms or legs. If you experience ANY of the above serious symptoms, Call 911 and go to the Emergency Department. Notify [facility] AFTER receiving care for the symptoms. Please call [facility] if you have questions or concerns @ [phone] documented in this encounter Medications at Time [...] Progress Notes * Kaykay Reyes MD - 08/23/2020 9:30 AM CDT HPI Pain in lower back without radiation to LE. Lumbar MBB did not help Pain is deep achy in nature, worse with exercise walking, standing and better with rest Does walk and exercise as tolerated P/E A/O times 3 No facial weakness Power 5/5 Reflexes +/-. Sensations to light touch N Lumbar spine flexion is limited Painful lumbar extension. Lumbar paraspinal muscles tightness + Facet loading is positive for pain Tenderness over SIJ bilaterally Impression Lumbar DDD Lumbo Sacral spondylosis Chronic Pain Plan Discussed with patient about medical condition and options Will do right L4-5 and L5-S1 facet inejctions today to help in pain and improve ADL He will continue with marijuana for now Risk benefits and alternate discussed All questions answered Agreed documented in this encounter Miscellaneous Notes * Perioperative Nursing Note - Nori Grijalva RN - 08/23/2020 10:24 AM CDT VSS, see flowsheet. Reviewed Discharge instruction sheet, patient verbalized understanding of all. Patient ok to discharge to home per Md. Patient ambulated with steady gait to personal vehicle. * Perioperative Nursing Note - Alanis Da Silva RN - 08/23/2020 9:30 AM CDT Consent signed on paper, verified. H/P completed by Dr. Eric MD. * Perioperative Nursing Note - Alanis Da Silva RN - 08/23/2020 9:30 AM CDT Patient tolerated procedure well, ambulated to Recovery room with stand by assistance, gait belt on. * Op Note - Kaykay Reyes MD - 08/23/2020 9:30 AM CDT Lumbar Intra-Articular Steroid Injection Pre-Procedure Diagnosis: Spondylosis Lumbo sacral , Lumbar DDD Chronic pain Post-Procedure Diagnosis: Same Indications: Pain affecting ADLs Pre-Procedure VAS: 6/10 Procedure was explained to patient. Risks and benefits were discussed. Written consent was obtained. Patient was taken to procedure room. Monitors were placed. Prior to the start of the procedure, verbal verification by the procedure participant confirmed: correct patient identity, correct site/side marked and visible, agreement on the procedure to be done,correct patient positioning, an accurate procedure consent form, any safety precautions based on clinical history and/or medication use have been addressed. Position: Prone Sterile Technique: Part was painted with and draped. With fluoroscopic guidance the needle entry point was infiltrated with 1% Lidocaine. At Right L4-5 Level, a 22 G spinal needle was advanced with fluoroscopic guidance up to the Intra-Articular facet joint. The needle was entered into the joint space. After confirming the position of the needle with fluoroscopic guidance, 40 mg of Methylprednisolone with 0.5 mls of 0.25% Bupivacainewas injected. The same procedure was performed at the following levels: Rigth L5-S1 level. Patient tolerated the procedure well. There were no apparent complications. Patient was taken to recovery room in stable condition. * Addendum Note - Aixa Boyer RN - 08/23/2020 9:30 AM CDTEncounter addended by: Aixa Boyer RN on: 08/23/2020 2:11 PM Actions taken: Flowsheet accepted documented in this encounter Plan of Treatment [...] lumbar region without myelopathy or radiculopathy- Primary Lumbosacral spondylosis without myelopathy DDD (degenerative disc disease), lumbar Degeneration of lumbar or lumbosacral intervertebral disc Chronic pain syndrome documented in this encounter Administered Medications Inactive Administered Medications - up to 3 most recent administrations Medication Order MAR Action Action Date Dose Rate Site bupivacaine (MARCAINE) 0.25 % (2.5 mg/mL) preservative free injection As needed, Starting on Sat08/23/20 at 1011, Intra-Op Given 08/23/2020 10:11 AM CDT 2 mL lidocaine (XYLOCAINE) 10 mg/mL (1 %) injection As needed, Starting on Sat08/23/20 at 1011, Intra-Op, Indications: Administration of Local AnesthesiaIndications:Administrati on of Local Anesthesia Given 08/23/2020 10:11 AM CDT 5 mL methylPREDNISolone acetate (DEPO-medrol) injection As needed, Starting on Sat08/23/20 at 1012, Intra-Op Given 08/23/2020 10:12 AM CDT 80 mg documented in this encounter Care Teams Chyron Operator Relationship Specialty [place] [address] [facility] [address] [place] [address] Rheumatology 02/21/17 Lashay Downs, RN Registered Nurse Pain Management 06/17/17 Duke Do, RN Registered Nurse 09/09/17 Ngozi Petty MD Radiation Oncologist Radiation Oncology 02/05/19 Jose Roberto Marx MD Referring Physician Otolaryngology 02/05/19 documented as of this encounter
--- OUTSIDE RECORDS SUMMARY | 2024-06-14 16:49 | XMS_ITS | Encounter Summary ---
Author Organization [facility] Healthcare Address [address] [place] [address] Care Team Providers Care Special Educator Name Role Phone Criss Blanco MD Unavailable Lashay Downs RN Unavailable Unavailab Duke Goodwin RN Unavailable UnavailNgozi Husain MD Unavailable [phone] Jose Roberto Marx MD Unavailable [phone] Reason for Referral * Diagnostic Imaging (Routine) - Closed Specialty Diagnoses / Procedures Referred By Contac t Referred To Contact Diagnoses Calculus of kidney Procedures XR Santosb Frank Lopez MD Phone: tel: fax: [address] [phone] Referral ID Status Reason Start Date Expiration Date Visits Re quested Visits Authorized [id number] Closed 07/12/2020 08/11/2021 1 1 CONCIERGE Reason for Visit * Diagnostic Imaging (Routine) - Closed Specialty Diagnoses / Procedures Referred By Contac t Referred To Contact Diagnoses Calculus of kidney Procedures XR Frank Payne MD Phone: tel: fax: [address] [phone] Referral ID Status Reason Start Date Expiration Date Visits Re quested Visits Authorized [id number] Closed 07/12/2020 08/11/2021 1 1 Encounter Details Date Type Department Care Team (Latest Contact Info) Description 07/12/2020 9:56 AM HEAD CONCIERGE - 07/12/2020 11:59 PM HEAD CONCIERGE Hospital Encounter [facility] [address] [place] [address] Frank Lopez MD [address] [id number] Calculus of kidney Discharge Disposition: Discharge to home or self [...] on file Legal Sex Male 12:56 AM HEAD CONCIERGE Gender Identity Not on file Sexual Orientation [...] Name Priority Date/Time Associated Diagnosis Comments XR KUB Schedule Routine, Read Routine (OP Routine) 07/12/2020 10:07 AM HEAD CONCIERGE Calculus of kidney documented in this encounter Results * XR Kub (07/12/2020 10:07 AM HEAD CONCIERGE) Anatomical Region Laterality Modality Body, Abdomen N/A Computed Radiogr aphy 07/12/2020 10:2 3 AM HEAD CONCIERGE Impressions 07/12/2020 10:28 AM HEAD CONCIERGE 1. ??No suspicious renal calcifications overlying the renal shadows. Calcifications adjacent to the lumbar spine are likely vascular. Electronically signed by: Samuel Villagomez M.D. Narrative 07/12/2020 10:28 AM HEAD CONCIERGE EXAMINATION: XR KUB ORDERING HEALTHCARE PROVIDER: FRANK LOPEZ HISTORY: BILATERAL KIDNEY STONES COMPARISON: 11/12/2016, CT 04/21/2018 TECHNIQUE: Supine radiograph(s) of the abdomen and pelvis. FINDINGS: There is a nonobstructive bowel gas pattern. ??No definitive calcification overlying the renal shadows are noted. ??Bilateral calcifications adjacent to the lumbar spine are noted. ??Bilateral hip osteoarthritis is noted. ??Inferior lumbar degenerative disc disease with facet osteoarthritis is noted. Procedure Note Samuel Villagomez MD - 07/12/2020 EXAMINATION: XR KUB ORDERING HEALTHCARE PROVIDER: FRANK LOPEZ HISTORY: BILATERAL KIDNEY STONES COMPARISON: 11/12/2016, CT 04/21/2018 TECHNIQUE: Supine radiograph(s) of the abdomen and pelvis. FINDINGS: There is a nonobstructive bowel gas pattern. No definitive calcification overlying the renal shadows are noted. Bilateral calcifications adjacent to the lumbar spine are noted. Bilateral hip osteoarthritis is noted. Inferior lumbar degenerative disc disease with facet osteoarthritis is noted. IMPRESSION: 1. No suspicious renal calcifications overlying the renal shadows. Calcifications adjacent to the lumbar spine are likely vascular. Electronically signed by: Samuel Villagomez M.D. Frank Lopez MD IMG XR PROCEDURES Final Res ult documented in this encounter Visit Diagnoses Diagnosis Calculus of kidney documented in this encounter Care Teams Special Educator Relationship Specialty [place] [address] [facility] [address] [place] [address] Rheumatology 02/21/17 Lashay Downs, RN Registered Nurse Pain Management 06/17/17 Duke Do, RN Registered Nurse 09/09/17 Ngozi Petty MD Radiation Oncologist Radiation Oncology 02/05/19 Jose Roberto Marx MD Referring Physician Otolaryngology 02/05/19 documented as of this encounter
--- OUTSIDE RECORDS SUMMARY | 2024-06-14 16:49 | XMS_ITS | Encounter Summary ---
Author Organization [facility] Healthcare Address [address] [place] [address] Care Team Providers Care Threading Machine Tender Name Role Phone Criss Blanco MD Unavailable Lashay Downs RN Unavailable Unavailab Duke Goodwin RN Unavailable UnavailNgozi Husain MD Unavailable [phone] Jose Roberto Marx MD Unavailable [phone] Encounter Details Date Type Department Care Team (Late st Contact Info) Description 06/17/2020 2:20 PM 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 Lab [address] [address] Viraj Stuart MD [address] [place] [address] Discharge Disposition: Discharge to home or self [...] on file Legal Sex Male 12:56 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 Gender Identity Not on file Sexual Orientation [...] Procedure Name Priority Date/Time Associated Diagnosis Comments APTT Routine 06/17/2020 2:25 PM 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 PROTIME-INR Routine 06/17/2020 2:25 PM 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 URINE CULTURE Routine 06/17/2020 2:25 PM 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 documented in this encounter Results * Urine culture Urine, clean voided (06/17/2020 2:25 PM 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) Report Final Report: Less than 100,000 colonies/mL (clinically insignificant growth based on current clinical standards) ANDRE ANSARI) Comment:Testing performed by : [facility], [address] [place]., [address] Organism (CLINICALLY INSIGNIFICANT GROWTH ANDRE ANSARI) Urine, clean voided 06/17/2020 2:25 PM 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 06/17/2020 7:57 PM 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 Narrative ANDRE ANSARI) - 06/19/2020 3:01 PM 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 Testing performed by [facility] Microbiology Laboratory ([phone]) Viraj Stuart MD LAB MICROBIOLOGY - GENERAL OR DERABLES Final Result ANDRE ANSARI) 1 [facility] Department [place] [address] * aPTT (06/17/2020 2:25 PM 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) aPTT 31 25 - 37 sec ANDRE ANSARI) Comment: Interpretive data Heparin therapeutic range: 60-94 seconds Range based on correlation with therapeutic heparin activity range of 0.3-0.7 units/ml. Current interpretive data was last revised on 2019. Blood specimen (specimen) 06/17/2020 2:25 PM 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 06/17/2020 2:45 PM 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 Viraj Stuart MD LAB BLOOD ORDERABLES Final Re sult Performing Organization Address [facility] Co de Phone Number ANDRE MORAES ([place]) [address] [facility] [place] [address] * Protime-INR (06/17/2020 2:25 PM 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) PT 12.4 9.5 - 13.0 sec [facility] ([place]) INR 1.1 0.9 - 1.2 [facility] ([place]) Comment: Interpretive data Oral anticoagulant therapeutic ranges: Venous thromboembolism prophylaxis or treatment: 2.0-3.0 CARDIOLOGY Standard range: 2.0-3.0 High-intensity range: 2.5-3.5 Refer to indication-specific guidelines for appropriate target ranges for prosthetic heart valve replacement. Current interpretive data was last revised on 2019. Blood specimen (specimen) 06/17/2020 2:25 PM 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 06/17/2020 2:45 PM 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 Viraj Stuart MD LAB BLOOD ORDERABLES Final Re sult Performing Organization Address [facility] Co de Phone Number ANDRE MORAES ([place]) [address] [facility] [place] [address] documented in this encounter Visit Diagnoses Not on filedocumented in this encounter Care Teams Threading Machine Tender Relationship Specialty [place] [address] [address] Rheumatology 02/21/17 Lashay Downs, RN Registered Nurse Pain Management 06/17/17 Duke Do, RN Registered Nurse 09/09/17 Ngozi Petty MD Radiation Oncologist Radiation Oncology 02/05/19 Jose Roberto Marx MD Referring Physician Otolaryngology 02/05/19 documented as of this encounter
--- OUTSIDE RECORDS SUMMARY | 2024-06-14 16:49 | XMS_ITS | Encounter Summary ---
Author Organization [facility] Address [address] [place] [address] Phone Care Team Providers Care Customer Service Officer Name Role Phone Criss Blanco MD Unavailable Lashay Downs RN Unavailable Unavailab Duke Goodwin RN Unavailable UnavailNgozi Husain MD Unavailable [phone] Jose Roberto Marx MD Unavailable [phone] Reason for Visit * (Routine) - Closed Specialty Diagnoses / Procedures Referred By Alcira forrest Referred To Contact Diagnoses Dysphonia Procedures DEMAND GENERATOR MANAGER videostroboscopy - Nathanael Valdez MD Phone: tel: fax: [facility] (All Locations) Referral ID Status Reason Start Date Expiration Date Visits Re quested Visits Authorized [id number] Closed 12/07/2019 06/17/2021 1 1 Encounter Details Date Type Department Care Team (Late st Contact Info) Description 12/08/2019 2:20 PM CDT Therapy [facility] Otolaryngology 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 Gender Identity Not on file Sexual Orientation Not on file 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 on file Not on natalie e documented as of this encounter Plan of Treatment Not on file documented as of this encounter Visit Diagnoses Diagnosis Dysphonia documented in this encounter Orders DEMAND GENERATOR MANAGER Count Last Ordered Date First Orde red Date DEMAND GENERATOR MANAGER VIDEOSTROBOSCOPY 1 12/08/2019 documented in this encounter Care Teams Customer Service Officer Relationship Specialty [place] [address] [facility] [address] [place] [address] Rheumatology 02/21/17 Lashay Downs, RN Registered Nurse Pain Management 06/17/17 Duke Do, RN Registered Nurse 09/09/17 Ngozi Petty MD Radiation Oncologist Radiation Oncology 02/05/19 Jose Roberto Marx MD Referring Physician Otolaryngology 02/05/19 documented as of this encounter
--- OUTSIDE RECORDS SUMMARY | 2024-06-14 16:49 | XMS_ITS | Encounter Summary ---
Author Organization [facility] Address [address] [place] [address] Phone Care Team Providers Care Farm Laborer Name Role Phone Criss Blanco MD Unavailable Lashay Downs RN Unavailable Unavailab Duke Goodwin RN Unavailable UnavailNgozi Husain MD Unavailable Jose Roberto Marx MD Unavailable [phone] Reason for Visit * Reason Comments Follow-up squamous cell carcin maricruz of larynx Encounter Details Date Type Department Care Team (Late st Contact Info) Description 12/08/2019 2:20 PM CDT Office Visit [facility] E[facility] [address] [facility] [address] [place] [address] Nathanael Valdez MD [address] [place] [address] 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); Dysphonia Social History Tobacco Use Types Packs/Day Years Used Date Smoking Tobacco: Former Cigarettes 1.5 37 1 959 - 1995 Smokeless Tobacco: Never Alcohol Use Standard Drinks/Week Comments Yes 3 (1 standard drink = 0.6 oz pur e alcohol) AUDIT-C Answer Date Recorded Frequency of Alcohol Consumption 2-3 times a ronaldo k 01/30/2019 Average Number of Drinks Not on file 019 Frequency of Binge Drinking Weekly 01/03 Sex and Gender Information Value Date Recorded Sex Assigned at Not on file Legal Sex Male 12:56 AM SOUND TECHNICIAN Gender Identity Not on file Sexual Orientation Not on file Occupation Industry Job Start Date Job End Date [employer] Not on file Not on file Not on natalie e documented as of this encounter Progress Notes * Nathanael Valdez MD - 12/08/2019 2:20 PM CDT PATIENT NAME: Samuel Sanchez : 1945 DOS: 12/08/2019 REFERRING PHYSICIAN: Self Referral CHIEF COMPLAINT: Chief Complaint Patient presents with ??? Follow-up squamous cell carcinoma of larynx INTERVAL HISTORY: Samuel Sanchez is a 74 y.o. male who presents today for follow-up of his [id number] right true vocal fold SCCa. He continues to do well. He denies dysphonia, dysphagia, odynophagia, referred otalgia, or hemoptysis. ?? OUTCOMES: GFI: 0 VHI-10: 0 VCI: 0 RSI: 0 REVIEW OF SYSTEMS: Review of Systems Constitutional: [...] Vitals signs reviewed. Constitutional: General: He is awake. He is not in acute distress. Appearance: [...] Not enlarged, swollen or pale. Mouth/Throat: Lips: [place]. No lesions. Mouth: Mucous membranes are moist. No oral lesions. Dentition: Normal dentition. No dental abscesses. Tongue: No lesions. Tongue protrudes in midline. Palate: No mass and lesions. Palate elevates in midline. Pharynx: Oropharynx is clear. Uvula midline. No oropharyngeal exudate or uvula swelling. Tonsils: No tonsillar exudate. Eyes: General: Lids are normal. Right eye: No discharge. Left eye: No discharge. Extraocular Movements: Extraocular movements intact. Conjunctiva/sclera: Conjunctivae normal. Right eye: No chemosis. Left eye: No chemosis. Pupils: Pupils are equal, round, and reactive to light. Neck: Musculoskeletal: Full passive range of motion without pain and neck supple. Normal range of motion.No erythema, neck rigidity or muscular tenderness. Thyroid: No thyroid mass or thyromegaly. Trachea: Trachea normal. No tracheal tenderness or tracheal deviation. Comments: The patient's voice sounds mildly gravelly but without strain. The pitch is expected for his age and gender. Pulmonary: Effort: Pulmonary effort is normal. No tachypnea, accessory muscle usage or respiratory distress. Breath sounds: No stridor. Musculoskeletal: Normal range of motion. Lymphadenopathy: Head: Right side of head: No submental, submandibular, tonsillar, preauricular, posterior auricular or occipital adenopathy. Left side of head: No submental, submandibular, tonsillar, preauricular, posterior auricular or occipital adenopathy. Cervical: No cervical adenopathy. Right cervical: No superficial, deep or posterior cervical adenopathy. Left cervical: No superficial, deep or posterior cervical adenopathy. Skin: General: Skin is warm and dry. Neurological: Mental Status: He is alert and oriented to person, place, and time. Cranial Nerves: Cranial nerves are intact. No cranial nerve deficit. Coordination: Coordination normal. Gait: Gait normal. Psychiatric: [...] structures are anatomically normal in appearance. No masses or lesions onthe true vocal folds. Vocal fold mobility is full and symmetric. During phonation, glottic closure is complete. Due to severe supraglottic hyperfunction on exam, unable to appreciate mucosal wave. The scope was then removed from the patient's nose, and he tolerated the procedure well. ASSESSMENT/PLAN: Squamous cell carcinoma of larynx (CMS/HCC) No evidence of disease on examination today. Continue routine surveillance. ?? DISPOSITION: Return in about 2 months (around 02/08/2020) for next scheduled voice follow up with video. Nathanael Valdez MD, FACS Operator/Assistant Foreman [facility] Division of Laryngology Department of Otolaryngology--Head & Neck Surgery Portions of this note were dictated using M*Modal Fluency Direct. Economic Manager variances may occur. I have seen and examined the patient. I agree with the findings and plan of care as documented in the resident/fellow's note. documented in this encounter Miscellaneous Notes * Assessment & Plan Note - Nathanael Valdez MD - 12/08/2019 2:59 PM CDT Associated Problem(s): 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) No evidence of disease on examination today. Continue routine surveillance. documented in this encounter Plan of Treatment Not on file 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)- Primary Malignant neoplasm of larynx, unspecified site Dysphonia documented in this encounter Historical Medications * This list may reflect changes made after this encounter. vit C,H-Tp-xaeho-lute in-zeaxan [phone] gi-icpo-au-mg capsule Take by mouth 04/08/2020 added in this encounter Care Teams Farm Laborer Relationship Specialty [place] [address] [facility] [address] [place] [address] Rheumatology 02/21/17 Lashay Downs, RN Registered Nurse Pain Management 06/17/17 Duke Do, RN Registered Nurse 09/09/17 Ngozi Petty MD Radiation Oncologist Radiation Oncology 02/05/19 Jose Roberto Marx MD Referring Physician Otolaryngology 02/05/19 documented as of this encounter
--- OUTSIDE RECORDS SUMMARY | 2024-06-14 16:49 | XMS_ITS | Encounter Summary ---
Author Organization [facility] Healthcare Address [address] [place] [address] Care Team Providers Care Skewer Up Name Role Phone Criss Blanco MD Unavailable Lashay Downs RN Unavailable Unavailab Duke Goodwin RN Unavailable UnavailNgozi Husain MD Unavailable [phone] Jose Roberto Marx MD Unavailable [phone] Reason for Referral * Diagnostic Imaging (Routine) - Closed Specialty Diagnoses / Procedures Referred By Contac t Referred To Contact Diagnoses Pain management Procedures FL Fluoroscopy < 1 Hour (Statistical Only) Kaykay Reyes MD Phone: tel: fax: [place] [address] [place] [address] Referral ID Status Reason Start Date Expiration Date Visits Re quested Visits Authorized [id number] Closed 07/07/2020 08/06/2021 1 1 OR MARKET INTELLIGENCE CONSULTANT Reason for Visit * Diagnostic Imaging (Routine) - Closed Specialty Diagnoses / Procedures Referred By Contac t Referred To Contact Diagnoses Pain management Procedures FL Fluoroscopy < 1 Hour (Statistical Only) Kaykay Reyes MD Phone: tel: fax: [place] [address] [place] [address] Referral ID Status Reason Start Date Expiration Date Visits Re quested Visits Authorized [id number] Closed 07/07/2020 08/06/2021 1 1 Encounter Details Date Type Department Care Team (Latest Contact Info) Description 07/07/2020 9:00 AM SENIOR MARKET INTELLIGENCE CONSULTANT - 07/07/2020 3:54 PM SENIOR MARKET INTELLIGENCE CONSULTANT Hospital Encounter [facility] [address] [facility] [address] [place] [address] Pain management Discharge Disposition: Discharge to home [...] on file Legal Sex Male 12:56 AM SENIOR MARKET INTELLIGENCE CONSULTANT Gender Identity Not on file Sexual Orientation [...] on stairs Contact your local community or [facility] for information on exercise, fall prevention programs, or options for improving home safety. documented as of this encounter Procedures Procedure Name Priority Date/Time Associated Diagnosis Comments FL FLUOROSCOPY < 1 HOUR (STATISTICAL ONLY) Schedule Routine, Read Routine (OP Routine) 07/07/2020 9:25 AM SENIOR MARKET INTELLIGENCE CONSULTANT Pain management documented in this encounter Results * FL Fluoroscopy < 1 Hour (Statistical Only) (07/07/2020 9:25 AM SENIOR MARKET INTELLIGENCE CONSULTANT) Narrative [facility] - 07/07/2020 9:31 AM SENIOR MARKET INTELLIGENCE CONSULTANT The images from this study are not interpreted by Radiology. ??Please refer to the physician's procedure / OR operative note. us Kaykay Reyes MD IMG FLUOROSCOPY PROCEDURE S Final Result Performing Organization Address City/State/[facility] Co de Phone Number [facility] documented in this encounter Visit Diagnoses Diagnosis Pain management documented in this encounter Care Teams Skewer Up Relationship Specialty [place] [address] [facility] [address] [place] [address] Rheumatology 02/21/17 Lashay Downs, RN Registered Nurse Pain Management 06/17/17 Duke Do, RN Registered Nurse 09/09/17 Ngozi Petty MD Radiation Oncologist Radiation Oncology 02/05/19 Jose Roberto Marx MD Referring Physician Otolaryngology 02/05/19 documented as of this encounter
--- OUTSIDE RECORDS SUMMARY | 2024-06-14 16:49 | XMS_ITS | Encounter Summary ---
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 Please call patient to schedule an appointment. ST ECOLOGY PROFESSOR Reason for Visit * Reason Comments Initial Consult lower back pain bila teral * Consultation (Routine) - Closed Specialty Diagnoses / Procedures Referred By Contac t Referred To Contact Pain Management Diagnoses Chronic midline low back pain without sciatica Lumbar spondylosis Spine pain Samuel Finley MD Phone: tel: fax: Kaykay Reyes MD [address] [address] Phone: tel: fax: Referral ID Status Reason Start Date Expiration Date V isits Requested Visits Authorized [id number] Closed Specialty Services Required 06/22/2020 12/26/2020 12 12 Encounter Details Date Type Department Care Team (Latest Contact Info) Description 07/07/2020 7:53 AM FOREST ECOLOGY PROFESSOR - 07/07/2020 8:59 AM FOREST ECOLOGY PROFESSOR Hospital Encounter [facility] [address] [facility] [address] [place] [address] Samuel Finley MD [address] [address] Kaykay Reyes MD [address] [facility] [place], [place] [id number] Chronic midline low back pain without sciatica; Lumbar spondylosis; Spine pain Discharge Disposition: Discharge to home or [...] on file Legal Sex Male 12:56 AM FOREST ECOLOGY PROFESSOR Gender Identity Not on file Sexual Orientation Not on file 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 Not on file Not on natalie e documented as of this encounter Last Filed Vital Signs Vital Sign Reading Time Taken Comments Blood Pressure 127/88 07/07/2020 9:23 AM FOREST ECOLOGY PROFESSOR Pulse 64 07/07/2020 9:23 AM FOREST ECOLOGY PROFESSOR Temperature 36.3 ??C (97.3 ??F) 07/07/2020 8:00 AM CS T Respiratory Rate 16 07/07/2020 9:23 AM FOREST ECOLOGY PROFESSOR Oxygen Saturation 98% 07/07/2020 9:23 AM FOREST ECOLOGY PROFESSOR Inhaled Oxygen Concentration - - Weight 95.3 kg (210 lb) 07/07/2020 8:00 AM FOREST ECOLOGY PROFESSOR Height 182.9 cm (6') 07/07/2020 8:00 AM FOREST ECOLOGY PROFESSOR Body Mass Index 28.48 07/07/2020 8:00 AM FOREST ECOLOGY PROFESSOR documented in this encounter Discharge Instructions * Discharge Instructions* Ara Angulo, GAY - 07/07/2020 9:19 AM FOREST ECOLOGY PROFESSOR See discharge instructions ST ECOLOGY PROFESSOR * Patient Instructions* Che Martínez RN - 07/07/2020 8:00 AM FOREST ECOLOGY PROFESSOR PA[facility]NAGEMENT [facility] DISCHARGE INSTRUCTIONS [phone] (Saturday-Saturday 7:30 am - 4:00 pm) PLAN: Keep pain diary today PROCEDURE TODAY: Right Lumbar L2, L3, L4 Medial nerve branch block injection FOLLOW UP: Will call to follow up. The Pain Management Center is committed to [...] to the date of need. o Call [phone] choose option #1 for the Prescription Refill [...] please contact the Pain Management Center at [phone]. For any questions about your visit or your procedure, please call the Pain Management Center [phone] (Saturday-Saturday 7:30 am - 4:00 pm). Please [...] Emergency Room. [facility]EMENT C[facility] PATIENT EDUCATION MEDIAL BRANCH BLOCK INJECTION / GENICULAR NERVE BLOCK DIAGNOSTIC INJECTION POST-PROCEDURE INFORMATION SHEET WHEN YOU GET HOME: ??? Increase your activity as tolerated. Attempt to perform activities that would normally cause you discomfort. ??? Resume your normal medication. ??? Resume [...] hot tub for the next 2 days. THIS INJECTION WILL BE TEMPORARY IN RELIEVING YOUR PAIN The effects of the injections will be almost immediate. A nurse will call you tomorrow. Please keepa record of the following information to relay to the nurse: ??? How much of your pain was relieved? (example: 50% pain relief) ??? How long was your pain relieved? (example: 3-4 hours) ??? Were you able to increase your activity level following the injection? Be prepared to report your answers to the nurse during your follow up phone call. You may experience side effects from the procedure/medications. Some of these side effects include: ??? Dizziness or light headedness upon standing. ??? Increased pain or soreness or achiness at the injection site. ??? Slight weakness or numbness in arms or legs. Serious complications are rare, but could include: ??? Allergic Reaction ??? Bleeding ??? Infection indicated but not limited to fever over 101, warmth/redness/drainage to injection site ??? Headache when sitting or standing that is resolved when lying down ??? Loss of balance/difficulty walking ??? Loss of bowel or bladder control ??? Increasing muscle weakness or prolonged numbness in the arms or legs. If you experience ANY of the above serious symptoms, Call 911 and go to the Emergency Department. Notify [facility] AFTER receiving care for the symptoms. Please call [facility] if you have questions or concerns @ [phone] 8 HOUR PAIN DIARY Pain Intensity Scale Worst pain 10 Completely interferes 9 with Activities of Daily Living Very severe pain 8 Greatly interferes 7 with ADL's Severe Pain 6 Partially interferes 5 with ADL'S Moderate pain 4 Somewhat interferes 3 with ADL'S Mild Pain 2 Mildly interferes 1 with ADL'S No Pain 0 Does not interfere with ADL'S Rate your pain every 60 minutes over the next 8 hours starting at . We will call you for the results on the next business day. Your Doctor wants to know if this procedure helped you 1 hour after procedure 2 hours after procedure 3 hours after procedure 4 hours after procedure 5 hours after procedure 6 hours after procedure 7 hours after procedure [address] ECOLOGY PROFESSOR ST ECOLOGY PROFESSOR ST ECOLOGY PROFESSOR documented in this encounter Medications at Time [...] Progress Notes * Kaykay Reyes MD - 07/07/2020 8:00 AM CST HPI Pain in lower back right is worse then left. It was insidious onset and progressed over a period ofyears. Pain is deep achy in nature, worse with exercise walking, standing and better with rest. Pain is localized in LS spinal area without radiation to LE. He tried oral NSAIDs, PT and HEP without termite treater benefit He saw Dr Finley for potential surgical options but He is not a candidate for a surgery. He is referred to me for evaluation for possible RFA He had seems like 2 LES in past without benefit by another physician. Details are not available. Does walk and exercise as tolerated H/O Renal stones bilaterally, right is removed , left will be removed in few months No weakness in LE or sphincter disturbances. MRI LS spine [facility] reported multilevel DDD and spondylosis without neural foraminal narrowing orspinal stenosis EXAMINATION: XR SCOLIOSIS 4 OR 5 VW ?? HISTORY: Lumbar spine canal stenosis ?? COMPARISON: Radiographs 05/15/2012 ?? FINDINGS: AP and lateral images from the skull through the feet including the entire spine using EOS system and 2 radiographs of lumbar spine are submitted for interpretation. ?? Minimal retrolisthesis of L2-3 which is unchanged with flexion or extension. Mild multilevel degenerative disc disease greatest from L1-L4. Facet arthropathy of the lower lumbar spine. Mild anterior wedging at the T11 and T12 vertebral body with focal kyphosis. Mild rightward coronal truncal imbalance. No sagittal truncal imbalance. No pelvic obliquity. ?? IMPRESSION: 1. 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 2. Mild rightward coronal truncal imbalance. No sagittal imbalance or pelvic obliquity. P/E A/O times 3 No facial weakness Power 5/5 Reflexes + in UE, ++ in LE. Sensations to light touch N Lumbar spine flexion is limited Painful lumbar extension. Lumbar paraspinal muscles tightness + Facet loading is positive for pain No tenderness over SIJ bilaterally Impression Lumbar DDD Lumbo Sacral spondylosis Chronic Pain Plan Discussed with patient about medical condition and possible treatment options. Conservative treatment with Oral medications, Exercise, Interventional therapy like Injection therapy and potential Surgery as an option discussed Patient understood. Discussed about MRI and X ray result. Films reviewed with patient Right L2-3-4 MBB and RFA discussed Pain Diary All questions answered. Agreed with the plan ST ECOLOGY PROFESSOR documented in this encounter Miscellaneous Notes * Perioperative Nursing Note - Alanis Da Silva RN - 07/07/2020 8:00 AM CST Consent signed on paper, verified. H/P completed by Dr. Eric MD. ST ECOLOGY PROFESSOR * Perioperative Nursing Note - Alanis Da Silva RN - 07/07/2020 8:00 AM CST Patient tolerated procedure well, ambulated to Recovery room with stand by assistance, gait belt on. ST ECOLOGY PROFESSOR * Op Note - Kaykay Reyes MD - 07/07/2020 8:00 AM CST Lumbar Median Nerve Branch Blocks Diagnostic Only Block Pre-Procedure Diagnosis: Lumbo Sacral Spondylosis, Lumbar DDD Chronic pain Post-Procedure Diagnosis: Same Indications: Pain affecting ADLs Pre-Procedure VAS: 7/10 Procedure was explained to patient. Risks and [...] Prone Sterile Technique: Part was painted with Chloraprep and draped. At right L2 Level, the skin entry point was identified with fluoroscopic guidance. 1% Lidocaine wasinfiltrated in the skin and subcutaneous tissue. A 25 G spinal needle was advanced up to the junction of transverse process and superior articular process of the vertebra. After negative aspiration of blood or CSF, 1 ml of 0.25% Bupivacaine was injected. The same procedure was performed at the following levels: Right L3 and L4 levels Patient tolerated the procedure well. There were no apparent complications. Patient was taken to recovery room in stable condition. ST ECOLOGY PROFESSOR documented in this encounter Plan of Treatment Scheduled Referrals Name Type Priority Associated Diagnoses Order Schedule Ambulatory referral to Pain Management Outpatient Referral Routine Chronic midline low back pain without sciatica Lumbar spondylosis Spine pain Once for 1 Occurrences starting 07/07/2020 until 07/07/2020 documented as of this encounter Goals Goal [...] on stairs Contact your local community or [facility] for information on exercise, fall prevention programs, or options for improving home safety. documented as of this encounter Visit Diagnoses Diagnosis Chronic midline low back pain without sciatica Lumbar spondylosis Lumbosacral spondylosis without myelopathy Spine pain Unspecified backache documented in this encounter Administered Medications Inactive Administered Medications - up to 3 most recent administrations Medication Order MAR Action Action Date Dose Rate Site bupivacaine (MARCAINE) 0.25 % (2.5 mg/mL) preservative free injection As needed, Starting on Manasa 07/07/20 at 0915, Intra-Op Given 07/07/2020 9:15 AM FOREST ECOLOGY PROFESSOR 3 mL lidocaine (XYLOCAINE) 10 mg/mL (1 %) injection As needed, Starting on Manasa 07/07/20 at 0914, Intra-Op, Indications: Administration of Local AnesthesiaIndications:Administration of Local Anesthesia Given 07/07/2020 9:14 AM FOREST ECOLOGY PROFESSOR 8 mL documented in this encounter Care Teams Crystal Attacher Relationship Specialty [place] [address] [address] Rheumatology 02/21/17 Lashay Downs, GAY Registered Nurse Pain Management 06/17/17 Duke Do, RN Registered Nurse 09/09/17 Ngozi Petty MD Radiation Oncologist Radiation Oncology 02/05/19 Jose Roberto Marx MD Referring Physician Otolaryngology 02/05/19 documented as of this encounter
--- OUTSIDE RECORDS SUMMARY | 2024-06-14 16:49 | XMS_ITS | Encounter Summary ---
Author Organization [facility] Healthcare Address [address] [place] [address] Care Team Providers Care Icu Specialist Name Role Phone Criss Blanco MD Unavailable Lashay Downs RN Unavailable Unavailab Duke Goodwin RN Unavailable UnavailNgozi Husain MD Unavailable [phone] Jose Roberto Marx MD Unavailable [phone] Reason for Visit * Reason Onset Date Comments Pre-Surgical Call 07/13/2020 Encounter Details Date Type Department Care Team (Late st Contact Info) Description 07/13/2020 Telephone [facility] Management [facility] at [facility] [address] [address], [address] [place] [phone] Kaykay Reyes MD [address] [facility] [place] [address] Pre-Surgical Call Social History Tobacco [...] on file Legal Sex Male 12:56 AM OLERICULTURIST Gender Identity Not on file Sexual Orientation Not on file Occupation Industry Job Start Date Job End Date [employer] Not on file Not on file Not on natalie e documented as of this encounter Miscellaneous Notes * Telephone Encounter - Annmarie Michelle BS - 07/13/2020 9:59 AM OLERICULTURIST 1. Remind Patients of our location. [address] [place] [address]. [facility] [place] [address] 2. [...] No [] 7. Do you have a otr hazmat company driver? (only ask if needed) Yes [] No [] 8. NPO status? (only ask if needed) Yes [] No [] ICULTURIST documented in this encounter Plan of Treatment [...] on stairs Contact your local community or [facility] for information on exercise, fall prevention programs, or options for improving home safety. documented as of this encounter Visit Diagnoses Not on filedocumented in this encounter Care Teams Icu Specialist Relationship Specialty [place] [address] [facility] [address] [place] [address] Rheumatology 02/21/17 Lashay Downs, GAY Registered Nurse Pain Management 06/17/17 Duke Do, GAY Registered Nurse 09/09/17 Ngozi Petty MD Radiation Oncologist Radiation Oncology 02/05/19 Jose Roberto Marx MD Referring Physician Otolaryngology 02/05/19 documented as of this encounter
--- OUTSIDE RECORDS SUMMARY | 2024-06-14 16:49 | XMS_ITS | Encounter Summary ---
Author Organization [facility] Healthcare Address [address] [place] [address] Care Team Providers Care Milk Inspector Name Role Phone Criss Blanco MD Unavailable Lashay Downs RN Unavailable Unavailab Duke Goodwin RN Unavailable UnavailNgozi Husain MD Unavailable [phone] Jose Roberto Marx MD Unavailable [phone] Reason for Visit * Reason Onset Date Comments Post MBB # 1 07/07/2020 Encounter Details Date Type Department Care Team (Late st Contact Info) Description 07/07/2020 Telephone Pain Management [facility] at [facility] [address] [address], [address] [place] [phone] Kaykay Reyes MD [address] [facility] [place] [address] Post MBB # 1 Social History Tobacco Use Types Packs/Day Years [...] on file Legal 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 S TENDER [employer] * Telephone Encounter - Jodee Hurst RN - 07/08/2020 2:18 PM PRESS TENDER [employer] Please call patient to schedule follow up visit to discuss medications. Thank you S TENDER [employer] * Telephone Encounter - Kaykay Reyes MD - 07/08/2020 2:12 PM PRESS TENDER [employer] GOODS Not a candidate for RFA. Will f/u to discuss pain meds. S TENDER [employer] * Telephone Encounter - Jodee Hurst RN - 07/08/2020 1:15 PM PRESS TENDER [employer] GOODS PROCEDURE: Lumbar MBB Site: Right L2, L Date: 07/08/20 Pre-Procedure Pain Score: FOLLOW-UP ASSESSMENT: Did the injection help you? [] Yes [x] No Current Pain Ratin /10 Percent Relief Obtained: Patient did not feel like he received any notable relief from procedure Were you able to increase your activity? Patient POST-PROCEDURE PAIN DIARY: Hour: Score: Notes/Comments: 1 2 3 4 5 6 7 8 OTHER COMMENTS/CONCERNS: Patient did not receive any relief from procedure. How would you like to proceed? S TENDER [employer] * Telephone Encounter - Alanis Da Silva RN - 07/07/2020 9:07 AM PRESS TENDER [employer] Patient had Right L2, L3, L4 MBB # 1 on 07/07/11. Please call patient to Follow up on the procedure response. Thank you. S TENDER [employer] documented in this encounter Plan of Treatment [...] on stairs Contact your local community or [facility] for information on exercise, fall prevention programs, or options for improving home safety. documented as of this encounter Visit Diagnoses Not on filedocumented in this encounter Care Teams Milk Inspector Relationship Specialty [place] [address] [facility] [address] [place] [address] Rheumatology 02/21/17 Lashay Downs, RN Registered Nurse Pain Management 06/17/17 Duke Do, GAY Registered Nurse 09/09/17 Ngozi Petty MD Radiation Oncologist Radiation Oncology 02/05/19 Jose Roberto Marx MD Referring Physician Otolaryngology 02/05/19 documented as of this encounter
--- OUTSIDE RECORDS SUMMARY | 2024-06-14 16:50 | XMS_ITS | Encounter Summary ---
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 - Nathanael Valdez MD Phone: tel: fax: [facility] (All Locations) Referral ID Status Reason Start Date Expiration Date Visits Re quested Visits Authorized [id number] Closed 06/19/2019 12/28/2020 1 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 Encounter Details Date Type Department Care Team (Late st Contact Info) Description 06/19/2019 Orders Only [facility] Otolaryngology [address] [facility] [address] [place] [phone] Nathanael Valdez MD [address] [place] [address] Dysphonia (Primary Dx) Social History Tobacco Use [...] on file 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 Gender Identity Not on file Sexual Orientation Not on file 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 on file Not on natalie e documented as of this encounter Plan of Treatment Not on file documented as of this encounter Visit Diagnoses Diagnosis Dysphonia- Primary documented in this encounter Orders HAT BRIM AND CROWN LAMINATING OPERATOR Count Last Ordered Date First Orde red Date HAT BRIM AND CROWN LAMINATING OPERATOR VIDEOSTROBOSCOPY 1 06/23/2019 documented in this encounter Care Teams Binder Stripper Machine Relationship Specialty [place] [address] [facility] [address] [place] [address] Rheumatology 02/21/17 Lashay Downs, RN Registered Nurse Pain Management 06/17/17 Duke Do, RN Registered Nurse 09/09/17 Ngozi Petty MD Radiation Oncologist Radiation Oncology 02/05/19 Jose Roberto Marx MD Referring Physician Otolaryngology 02/05/19 documented as of this encounter
--- OUTSIDE RECORDS SUMMARY | 2024-06-14 16:50 | XMS_ITS | Encounter Summary ---
Author Organization [facility] Address [address] [place] [address] Phone Care Team Providers Care Throat Cutter Name Role Phone Criss Blanco MD Unavailable Lashay Downs RN Unavailable Unavailab Duke Goodwin RN Unavailable UnavailNgozi Husain MD Unavailable Jose Roberto Marx MD Unavailable [phone] Reason for Visit * Reason Comments Follow-up squamous cell carcin maricruz of larynx Encounter Details Date Type Department Care Team (Late st Contact Info) Description 10/06/2019 1:30 PM CDT Office Visit [facility] ENT [address] [facility] [address] [place] [address] Nathanael Valdez MD [address] [place] [address] 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); Dysphonia Social History Tobacco Use Types Packs/Day Years Used Date Smoking Tobacco: Former Cigarettes 1.5 37 1 959 - 1995 Smokeless Tobacco: Never Alcohol Use Standard Drinks/Week Comments Yes 3 (1 standard drink = 0.6 oz pur e alcohol) AUDIT-C Answer Date Recorded Frequency of Alcohol Consumption 2-3 times a georgee k 01/30/2019 Average Number of Drinks Not on file 019 Frequency of Binge Drinking Weekly 01/03 Sex and Gender Information Value Date Recorded Sex Assigned at Not on file 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 Follow-up squamous cell carcinoma of larynx INTERVAL HISTORY: Samuel Sanchez is a 74 y.o. male who presents today for follow-up of his [id number] right true vocal fold SCCa. Heis doing well and has no new issues. He denies dysphagia, odynophagia, referred otalgia, or hemoptysis. He has mild dysphonia, particularly vocal fatigue, but it remains stable. OUTCOMES: GFI: 0 VHI-10: 0 VCI: 0 RSI: 3 REVIEW OF SYSTEMS: Review of Systems Constitutional: Negative for appetite change, chills, fever and unexpected weight change. HENT: Positive for postnasal drip and voice change. Negative for congestion, dental problem, drooling, ear discharge, ear pain, facial swelling, hearing loss, mouth sores, nosebleeds, rhinorrhea, sinus pressure, sinus pain, sneezing, sore throat, tinnitus and trouble swallowing. Eyes: Negative for pain and visual disturbance. [...] Not enlarged, swollen or pale. Mouth/Throat: Lips: [place]. No lesions. Mouth: Mucous membranes are moist. [...] deviation. Comments: The patient's voice sounds mildly raspy but without strain. The pitch is expected for hisage and gender. Pulmonary: Effort: Pulmonary effort is [...] hypopharyngeal structures are anatomically normal in appearance. Vocal fold mobility is full and symmetric. No lesions are seen on the glottis. During phonation, glottic closure is complete. The mucosal wave is intact and symmetric. There is mild supraglottic hyperfunction present on exam. The scope was then removed from the patient's nose, and he tolerated the procedure well. ASSESSMENT/PLAN: Squamous cell carcinoma of larynx (CMS/HCC) No evidence of disease on examination today. Continue routine surveillance. Dysphonia Stable dysphonia. Secondary to post-surgical change and some mild muscle tension. No orders of the defined types were placed in this encounter. DISPOSITION: Return in about 8 weeks (around 12/01/2019) for next scheduled voice follow up with video. Nathanael Valdez MD, FACS Customer Supply Coordinator [facility] Division of Laryngology Department of Otolaryngology--Head & Neck Surgery Portions of this note were dictated using M*Modal Fluency Direct. Community Services Coordinator variances may occur. documented in this encounter Miscellaneous Notes * Assessment & Plan Note - Nathanael Valdez MD - 10/06/2019 2:08 PM CDT Associated Problem(s): Dysphonia Stable dysphonia. Secondary to post-surgical change and some mild muscle tension. 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 Continue routine surveillance. 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 [address] [place] [address] Rheumatology 02/21/17 Lashay Downs, RN Registered Nurse Pain Management 06/17/17 Duke Do, RN Registered Nurse 09/09/17 Ngozi Petty MD Radiation Oncologist Radiation Oncology 02/05/19 Jose Roberto Marx MD Referring Physician Otolaryngology 02/05/19 documented as of this encounter
--- OUTSIDE RECORDS SUMMARY | 2024-06-14 16:50 | XMS_ITS | Encounter Summary ---
Author Organization [facility] Address [address] [place] [address] Care Team Providers Care Senior Interaction Designer Name Role Phone Criss Blanco MD Unavailable Lashay Downs RN Unavailable Unavailab Duke Goodwin RN Unavailable UnavailNgozi Husain MD Unavailable [phone] Jose Roberto Marx MD Unavailable [phone] Encounter Details Date Type Department Care Team (Late st Contact Info) Description 02/16/2019 10:27 AM CDT Anesthesia Event [facility] Operating Room [address] [place] [address] Milan Roy MD [address] [facility] [address] [place] [address] Melissa Terrazas NP [address] [facility] [phone] [place] [address] Anesthesia Record Procedure Summary Procedure Name Responsible Anesthesiologist Anesthesia Start Time Anesthesia Stop Time Suspension microlaryngoscopy with KTP laser treatment (Right: Throat) Milan Roy MD 02/16/19 1027 02/16/19 1152 Events Date Time Event Comment 02/16/2019 0914 1027 An Start 1032 AN Equip Check 1033 In Room 1033 An Start Data 1036 An Induction The patient was reevaluated immediately before moderate or deep sedation use and before anesthesia induction. 1036 An Intubation 1048 Anesthesia Ready 1051 Proc Start 1107 Incision Start 1146 Proc Fin 1146 Out of Room 1149 An Extubation 1150 an stop data 1152 Handoff to RN I completed my handoff [...] disposition at the time of handoff: PACU 1152 An Stop Meds Name Total fentaNYL PF 100 mcg lidocaine 1 % PF 50 mg propofol 200 mg rocuronium 40 mg succinylcholine syringe 100 mg/5 mL 100 mg neostigmine syringe 1 mg/mL 3 mg glycopyrrolate 0.4 mg famotidine PF 20 mg ondansetron PF 4 mg dexamethasone 10 mg/mL PF 8 mg Lactated Ringer's (LR) infusion 1,111 mL * Agents Name O2 Air Sevoflurane Inspired Sevoflurane * Blood No blood administrations on file. Lines, Drains, and Airways Type Details Placement Removal Oral/Nasal Airway Placed By: Other (Comment) (upon arrival from or); Removal Date: 03/09/19 02/16/19 1158 by 03/09/19 0000 by Dede Nguyen RN RETIRED Surgical Site 06/18/17; 0919; Ri t; Back; 06/30/19; 0806 06/18/17 0919 by Duke Do RN 06/30/19 0806 by Gio Singh RN RETIRED Surgical Site 06/25/17; 0911; Ri t; Back; 06/30/19; 0806 06/25/17 0911 by Lashay Downs RN 06/30/19 0806 by Gio Singh RN RETIRED Surgical Site 07/09/17; 0853; Ri t; Back; 06/30/19; 0806 07/09/17 0853 by Lashay Downs RN 06/30/19 0806 by Gio Singh RN RETIRED Surgical Site 07/16/17; 0916; Ri t; Back; 06/30/19; 0806 02/13/18 0916 by Duke Do RN 06/30/19 0806 by Gio Singh RN RETIRED Surgical Site 07/30/17; 0925; Ri ght; Back; 06/30/19 07/30/17 0925 by Duke Do RN 06/30/19 0000 by Gio Singh RN RETIRED Surgical Site 09/17/17; 0912; Ba ck; 06/30/19; 0806 09/17/17 0912 by Duke Do RN 06/30/19 0806 by Gio Singh RN RETIRED Surgical Site 10/04/17; 0857; Ba ck; 06/30/19; 0807 10/04/17 0857 by Lashya Downs RN 06/30/19 0807 by Gio Singh RN Peripheral IV Placement Date: 02/16/19; Placement Time: 0835; Catheter Size: 22 G; Orientation: Right; Location: Forearm; Site Prep: Chlorhexidine; Insertion Attempts: 1; Patient Tolerance: Tolerated well; Removal Date: 02/16/19; Removal Time: 1325; Removal Reason: Discharge 02/16/19 0835 by Rosalba Momin RN 02/16/19 1325 by Eloise Snider RN ETT Placement Date: 02/16/19; Placement Time: 1046 (created via procedure documentation); Technique: Direct laryngoscopy; Type: Laser tube; Single Lumen Tube Size: 5 mm; Cuffed: Yes; Laryngoscope: Avery; Blade Size: 2; Location: Oral; Insertion Attempts: 3 or more; Placement Verification: Auscultation, Capnometry; Removal Date: 02/16/19; Removal Time: 1154 02/16/19 1046 by Che Zepeda CRNA 02/16/19 1154 by Che Zepeda CRNA RETIRED Surgical Site 02/16/19; 1053; Ri ght; Throat; 06/30/19; 0807 02/16/19 1053 by Marlene Wells RN 06/30/19 0807 by Singh, Gio R., RN documented in this encounter Social History [...] on file Legal 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 Gender Identity Not on file Sexual Orientation Not on file 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 on file Not on natalie e documented as of this encounter OR Notes * Anesthesia Postprocedure Evaluation - Milan Roy MD - 02/16/2019 12:55 PM CDT Patient: Samuel Sanchez Procedure Summary Date: 02/16/19 Room / Location: [facility] OPERATING ROOM 11 / [facility] Anesthesia Start: 1027 Anesthesia Stop: 1152 Procedure: Suspension microlaryngoscopy with KTP laser treatment (Right Throat) Diagnosis: Squamous cell carcinoma of larynx (CMS/HCC) (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]) Surgeon: Nathanael Valdez MD Responsible Provider: Milan Roy MD Anesthesia Type: general ASA Status: 2 Anesthesia Type: general Last vitals BP 128/78 Pulse 59 Temp 36.5 ??C (97.7 ??F) (Temporal) Resp 18 SpO2 100% Anesthesia Post Evaluation Patient location during evaluation: PACU Patient participation: complete - patient participated Level of consciousness: fully awake Pain score: 0 Pain management: adequate Airway patency: adequate Evidence of recall: no Anesthetic complications: no Cardiovascular status: hemodynamically stable and acceptable Respiratory status: acceptable and room air Hydration status: acceptable Pt is: normothermic Nausea/Vomiting status: none * Anesthesia Procedure Notes - Che Zepeda CRNA - 02/16/2019 10:52 AM CDTAssociated Order(s): Airway Airway Patient location: OR Urgency: elective Date/time: 02/16/2019 10:46 AM Indications for airway management: anesthesia Difficult airway: no Staff: Placed by: Other staff: Nathanael Valdez MD Emergent airway documentation: Risks and benefits discussed: yes Consent obtained: yes Consent given by: patient Airway prep: Preoxygenated: yes Patient position: sniffing Spontaneous ventilation during airway: absent Sedation level during airway: GA Final airway details: Final airway type: endotracheal airway Tube type: laser tube ETT size: 5.0 mm Cuffed: yes Technique used for successful ETT placement: direct laryngoscopy Insertion site: oral Blade type: Avery Blade size: 2 Cuff volume: 5 mL Cuff inflated with: air Placement verified by: auscultation and CO2 detection Airway secured with: silk tape Number of attempts: 3 or more Ventilation between attempts: BVM Unsuccessful airway(s) attempted: bag valve mask Unsuccessful approach(es) for ETT: direct laryngoscopy Planned trial extubation: yes * Anesthesia Preprocedure Evaluation - Milan Roy MD - 02/10/2019 10:50 AM CDT [facility] Preoperative Evaluation Record Telephone Preoperative Evaluation ([facility]) - TELEPHONE ONLY, NO PHYSICAL EXAM Date: 02/10/19 Anesthesia Evaluation Samuel Sanchez is a 73 y.o. 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 male who is being evaluated prior to undergoing suspension microlaryngoscopy w/KTP laser treatment for laryngeal SCCa . Past Medical History Information obtained from: patient. Neurological Pertinent negatives: seizures; neuromuscular disease; CVA/stroke; TIA; CEA; ICA stenosis; dementia/mild cognitive impairment and carotid artery stent Cardiovascular Pertinent negatives: hypertension ; CAD ; VT ; CABG ; valvular heart disease; valve [...] negatives: hiatal hernia Renal / + Nephrolithiasis Pertinent negatives: renal disease and dialysis Musculoskeletal/Pain + Chronic pain + Osteoarthritis Pertinent negatives: chronic opioid use and previous treatment for opioid use disorder Endocrine / Other + Cancer history- current cancer. Cancer type: current - laryngeal. + Rheumatological disease (B hands) - rheumatoid arthritis. Pertinent negatives: diabetes mellitus; thyroid disease; obesity (BMI >30) and transplanted organ Functional Capacity Functional capacity: 4-6 METs Comments: Patient states that they can walk 4 blocks at a moderate pace w/no SOB or CP Patient reports that he walks 2 miles daily Review of Systems + easy bruising + chronic pain + hard of hearing (decreased hearing B; wears hearing aides occasionally) + heartburn + dysphagia Pertinent negatives: productive cough; wheezing; SOB; recent cold/flu; fever; chest pain; palpitations; orthopnea; pedal edema; PND; Sickle Cell disease/trait; previous transfusion; transfusion reaction; melena/hematochezia; bleeding problems; syncope; dizziness; muscle weakness; numbness/tingling;vision loss; nausea; diarrhea; dentures/partials; chipped/loose teeth; abdominal pain; diaphoresis [...] antibacterial soap. Patient instructions were provided by telephone; patient declined to have preoperative instructionsmailed. Patient verbalized understanding of preoperative plan. TPAP process complete. Preoperative evaluation performed by Melissa Terrazas NP on 02/10/19 at 10:58 AM. . Patient Active Problem List Diagnosis ??? Seropositive rheumatoid arthritis of multiple sites ([facility]) ??? Headache ??? FPC use of drug ??? Discogenic low back pain ??? Shortness of breath ??? Atypical migraine ??? Calculus of kidney ??? Dyspepsia ??? Squamous cell carcinoma of larynx ([facility]) Past Medical History: Diagnosis Date ??? Arthritis arthritis ??? Calculus of kidney Nephrolithiasis ??? Gastroesophageal reflux disease acid reflux ??? [...] OTHER MEDICAL hemorroids; Comments: Had done at [facility] in [place] ??? HX OTHER MEDICAL bladder infection ??? HX OTHER MEDICAL kidney stone ??? Malignant neoplasm of prostate ([facility]) 1998 prostate Past Surgical History: Procedure Laterality Date ??? BICEPS TENODESIS Left ??? EAR SURGERY Left repair perforated eardrum ??? LITHOTRIPSY s - 2019 5 or 6 times ??? ORCHIECTOMY Right s ??? PROSTATE SURGERY Pinched Prostate: surgically repaired ??? ROTATOR CUFF REPAIR Right and removal of bone spurs ??? VASECTOMY Allergies Allergen Reactions ??? Hydrocodone Itching HOME MEDICATIONS : biotin 10,[address] (NexIUM) 20 mg capsule folic acid (FOLVITE) 1 mg tablet hexskwkrajc-hjxfxpavq-cwn C-Mn capsule uaabdfadosxo-Cj-ntnw-minerals 18-0.4 mg tablet ranitidine (ZANTAC) 300 mg capsule tamsulosin (FLOMAX) 0.4 mg extended release capsule methotrexate 2.5 mg tablet No current facility-administered medications for this encounter. Current Outpatient Medications: ??? biotin 10,000 mcg capsule ??? esomeprazole DR (NexIUM) 20 mg capsule ??? folic acid (FOLVITE) 1 mg tablet ??? fpexnhgozfk-jggndvlru-ioy C-Mn capsule ??? jkthzcqkkxzi-Lm-uwdm-minerals 18-0.4 mg tablet ??? ranitidine (ZANTAC) 300 mg capsule ??? tamsulosin (FLOMAX) 0.4 mg extended release capsule ??? methotrexate 2.5 mg tablet Social History Tobacco Use Smoking Status Former Smoker ??? Packs/day: 1.50 ??? Years: 30.00 ??? Pack years: 45.00 ??? Types: Cigarettes ??? Start date: 1958 ??? Last attempt to quit: 1995 ??? Years since quittin.7 Smokeless Tobacco Never Used Substance and Sexual Activity Alcohol Use Yes ??? Alcohol/week: 1.8 oz ??? Types: 3 Standard drinks or equivalent per week ??? Frequency: 2-3 times a week ??? Binge frequency: Weekly Substance and Sexual Activity Drug Use Not Currently Family History Adopted: Yes Problem Relation Age of Onset ??? Other Other adopted ??? Other Other adopted PAT Physical Exam There were no vitals filed for this visit. Relevant diagnostics: ECG(s): 01/06/2019: 57 bpm; Sinus bradycardia; Nonspecific T-wave abnormality; Borderline ECG Echocardiogram(s): N/A Stress test(s): N/A Cardiac catheterization(s): N/A PFT(s): N/A Vascular studies: N/A Other: N/A Marcelle index score: 100 DOS Physical Exam Medical history, medications, and allergies reviewed. Attestation: This PAT evaluation 02/16/2019. Airway Exam: Mallampati: III Cervical ROM: FROM TM distance: 3 Cardiovascular Exam: Rate: regular Rhythm: regular Pulmonary Exam: LCTA, bilat Dental Exam: Appears intact Anesthesia Plan ASA 2 My patient is approved for the Anesthesia Controlled Medication protocol when under care of a TICKET BROKER Planned anesthesia: General Team communication plan: oral [...] Procedure Name Priority Date/Time Associated Diagnosis Comments VT AN PROCEDURE PLACEHOLDER Routine 02/16/2019 10:52 AM CDT Procedure Note - Che Zepeda CRNA - 02/16/2019 10:52 AM CDTThis note is in progress. Airway Patient location: OR Urgency: elective Date/time: 02/16/2019 10:46 AM Indications for airway management: anesthesia Difficult airway: no Staff: Placed by: Other staff: Nathanael Valdez MD Emergent airway documentation: Risks and benefits discussed: yes Consent obtained: yes Consent given by: patient Airway prep: Preoxygenated: yes Patient position: sniffing Spontaneous ventilation during airway: absent Sedation level during airway: GA Final airway details: Final airway type: endotracheal airway Tube type: laser tube ETT size: 5.0 mm Cuffed: yes Technique used for successful ETT placement: direct laryngoscopy Insertion site: oral Blade type: Avery Blade size: 2 Cuff volume: 5 mL Cuff inflated with: air Placement verified by: auscultation and CO2 detection Airway secured with: silk tape Number of attempts: 3 or more Ventilation between attempts: BVM Unsuccessful airway(s) attempted: bag valve mask Unsuccessful approach(es) for ETT: direct laryngoscopy Planned trial extubation: yes VT AN ELECTIVE ENDOTRACHEAL AIRWAY Routine 02/16/2019 10:52 AM CDT Procedure Note - Che Zepeda CRNA - 02/16/2019 10:52 AM CDTThis note is in progress. Airway Patient location: OR Urgency: elective Date/time: 02/16/2019 10:46 AM Indications for airway management: anesthesia Difficult airway: no Staff: Placed by: Other staff: Nathanael aVldez MD Emergent airway documentation: Risks and benefits discussed: yes Consent obtained: yes Consent given by: patient Airway prep: Preoxygenated: yes Patient position: sniffing Spontaneous ventilation during airway: absent Sedation level during airway: GA Final airway details: Final airway type: endotracheal airway Tube type: laser tube ETT size: 5.0 mm Cuffed: yes Technique used for successful ETT placement: direct laryngoscopy Insertion site: oral Blade type: Avery Blade size: 2 Cuff volume: 5 mL Cuff inflated with: air Placement verified by: auscultation and CO2 detection Airway secured with: silk tape Number of attempts: 3 or more Ventilation between attempts: BVM Unsuccessful airway(s) attempted: bag valve mask Unsuccessful approach(es) for ETT: direct laryngoscopy Planned trial extubation: yes documented in this encounter Visit Diagnoses Not on filedocumented in this encounter Administered Medications Inactive Administered Medications - up to 3 most recent administrations Medication Order MAR Action Action Date Dose Rate Site dexamethasone (DECADRON) preservative free solution intravenous, Administer over 2 Minutes, As needed, Starting on Sat02/16/19 at 1036, Anesthesia Intra-op Given 02/16/2019 10:36 AM CDT 8 mg famotidine (PEPCID) injection intravenous, Administer over 2 Minutes, As needed, Starting on Sat02/16/19 at 1027, Anesthesia Intra-op Given 02/16/2019 10:27 AM CDT 20 mg fentaNYL (SUBLIMAZE) preservative free injection intravenous, As needed, Starting on Sat02/16/19 at 1036, Anesthesia Intra-op Given 02/16/2019 10:50 AM CDT 50 mcg Given 02/16/2019 10:36 AM CDT 50 mcg glycopyrrolate (ROBINUL) injection intravenous, Administer over 1 Minutes, As needed, Starting on Sat02/16/19 at 1143, Anesthesia Intra-op Given 02/16/2019 11:43 AM CDT 0.4 mg Lactated Ringer's (LR) infusion 30 mL/hr, intravenous, Continuous, Starting on Sat02/16/19 at 0915, Pre-Op, Switch to Normal Saline for patients on Dialysis New Bag 02/16/2019 11:24 AM CDT New Bag 02/16/2019 8:36 AM CDT 30 mL/hr 30 mL/hr lidocaine PF (XYLOCAINE) 10 mg/mL (1 %) preservative free injection As needed, Starting on Sat02/16/19 at 1036, Anesthesia Intra-op Given 02/16/2019 10:36 AM CDT 50 mg neostigmine injection intravenous, Administer over 3 Minutes, As needed, Starting on Sat02/16/19 at 1143, Anesthesia Intra-op Given 02/16/2019 11:43 AM CDT 3 mg ondansetron (ZOFRAN) injection intravenous, Administer over 2 Minutes, As needed, Starting on Sat02/16/19 at 1027, Anesthesia Intra-op Given 02/16/2019 10:27 AM CDT 4 mg propofol (DIPRIVAN) IV intravenous, As needed, Starting on Sat02/16/19 at 1036, Anesthesia Intra-op Given 02/16/2019 10:36 AM CDT 200 mg rocuronium (ZEMURON) injection intravenous, As needed, Starting on Sat02/16/19 at 1036, Anesthesia Intra-op Given 02/16/2019 10:50 AM CDT 30 mg Given 02/16/2019 10:36 AM CDT 10 mg succinylcholine syringe intravenous, As needed, Starting on Sat02/16/19 at 1036, Anesthesia Intra-op Given 02/16/2019 10:36 AM CDT 100 mg documented in this encounter Orders Procedures Count Last Ordered Date First Orde red Date Airway 1 02/16/2019 documented in this encounter Care Teams Senior Interaction Designer Relationship Specialty [place] [id number] [address] Rheumatology 02/21/17 Lashay oDwns, GAY Registered Nurse Pain Management 06/17/17 Duke Do, RN Registered Nurse 09/09/17 Ngozi Petty MD Radiation Oncologist Radiation Oncology 02/05/19 Jose Roberto Marx MD Referring Physician Otolaryngology 02/05/19 documented as of this encounter
--- OUTSIDE RECORDS SUMMARY | 2024-06-14 16:50 | XMS_ITS | Encounter Summary ---
Author Organization [facility] Healthcare Address [address] [place] [address] Care Team Providers Care Metal Stamping Machine Operator Name Role Phone Criss Blanco MD Unavailable Lashay Downs RN Unavailable Unavailab Duke Goodwin RN Unavailable UnavailNgozi Husain MD Unavailable [phone] Jose Roberto Marx MD Unavailable [phone] Encounter Details Date Type Department Care Team (Late st Contact Info) Description 03/09/2019 9:06 AM CDT Anesthesia Event [facility] Operating Room [address] [place] [address] Saman Springer MD [address] [facility] [address] [place] [address] Riya Sung NP [address] [facility] [phone] [place] [address] Anesthesia Record Procedure Summary Procedure Name Responsible Anesthesiologist Anesthesia Start Time Anesthesia Stop Time Suspension microlaryngoscopy with KTP laser treatment (Right: Throat) Saman Springer MD 03/09/19 0906 03/09/19 1009 Events Date Time Event Comment 03/09/2019 0709 0906 An Start 0911 In Room 0911 AN Equip Check 0911 An Start Data 0916 An Induction The patient was reevaluated immediately before moderate or deep sedation use and before anesthesia induction. 0919 An Intubation 0925 Anesthesia Ready 0929 Proc Start 0929 Incision Start 0946 Proc Fin 1004 An Extubation 1004 an stop data 1004 Out of Room 1009 Handoff to RN I completed my handoff [...] disposition at the time of handoff: PACU 1009 An Stop Meds Name Total fentaNYL PF 50 mcg lidocaine 1 % PF 50 mg propofol 200 mg rocuronium 35 mg famotidine PF 20 mg ondansetron PF 4 mg dexamethasone 10 mg/mL PF 8 mg labetalol 10 mg sugammadex 200 mg Lactated Ringer's (LR) infusion 1,111 mL * Agents Name O2 Air Sevoflurane Inspired Sevoflurane * Blood No blood administrations on file. Lines, Drains, and Airways Type Details Placement Removal RETIRED Surgical Site 06/18/17; 0919; Ri ght; Back; 06/30/19; 0806 06/18/17 0919 by Duke Do RN 06/30/19 0806 by Gio Singh RN RETIRED Surgical Site 06/25/17; 0911; Ri ght; Back; 06/30/19; 0806 06/25/17 0911 by Lashay Downs RN 06/30/19 0806 by Gio Singh, GAY RETIRED Surgical Site 07/09/17; 0853; Ri ght; Back; 06/30/19; 0806 07/09/17 0853 by Lashay Downs RN 06/30/19 0806 by Gio Singh, GAY RETIRED Surgical Site 07/16/17; 0916; Ri ght; Back; 06/30/19; 0806 07/16/17 0916 by Duke Do RN 06/30/19 0806 by Gio Singh RN RETIRED Surgical Site 07/30/17; 0925; Ri ght; Back; 06/30/19 07/30/17 0925 by Duke Do, GAY 06/30/19 0000 by Gio Singh RN RETIRED Surgical Site 09/17/17; 0912; Ba ck; 06/30/19; 0806 09/17/17 0912 by Duke Do, GAY 06/30/19 0806 by Gio Singh RN RETIRED Surgical Site 10/04/17; 0857; Ba ck; 06/30/19; 0807 10/04/17 0857 by Lashay Downs RN 06/30/19 0807 by Gio Singh RN RETIRED Surgical Site 02/16/19; 1053; Ri ght; Throat; 06/30/19; 0807 02/16/19 1053 by Marlene Wells RN 06/30/19 0807 by Gio Singh RN Peripheral IV Placement Date: 03/09/19; Placement Time: 0705; Catheter Size: 20 G; Orientation: Right; Location: Antecubital; Removal Date: 03/09/19; Removal Time: 1100 03/09/19 0705 by Dede Nguyen RN 03/09/19 1100 by Margareth Flores, GAY ETT Placement Date: 03/09/19; Placement Time: 918 (created via procedure documentation); Mask Ventilation: 0; Technique: Direct laryngoscopy; Type: Laser tube; Single Lumen Tube Size: 5.5 mm; Cuffed: Yes; Laryngoscope: Avery; Blade Size: 2; Location: Oral; Grade View: Grade I; Insertion Attempts: 1; Placement Verification: Auscultation, Capnometry; Removal Date: 03/09/19; Removal Time: 1004 03/09/19 0919 by Che Zepeda CRNA 03/09/19 1004 by Che Zepeda CRNA RETIRED Surgical Site 03/09/19; 0930; Throat; 06/30/19; 0807 03/09/19 0930 by Heather Castro RN 06/30/19 0807 by Gio Singh, GAY Oral/Nasal Airway Placement Date: 03/09/19; Placement Time: 1006; Removal Date: 03/09/19; Removal Time: 1008 03/09/19 1006 by Margareth Flores RN 03/09/19 1008 by Margareth Flores RN documented in this encounter Social History [...] on file Legal 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 Gender Identity Not on file Sexual Orientation Not on file 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 on file Not on natalie e documented as of this encounter OR Notes * Anesthesia Postprocedure Evaluation - Saman Springer MD - 03/09/2019 12:42 PM CDT Patient: Samuel Sanchez Procedure Summary Date: 03/09/19 Room / Location: [facility] OPERATING [facility]OM 11 / [facility] Anesthesia Start: 905 Anesthesia Stop: 1008 Procedures: Suspension microlaryngoscopy with KTP laser treatment (Right Throat) LASER KTP (Right ) Diagnosis: Squamous cell carcinoma of larynx (CMS/HCC) (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]) Surgeon: Nathanael Valdez MD Responsible Provider: Saman Springer MD Anesthesia Type: general ASA Status: 2 Anesthesia Type: general Last vitals BP 113/69 Pulse 61 Temp 36 ??C (96.8 ??F) (Temporal) Resp 18 SpO2 97% Anesthesia Post Evaluation Patient location during evaluation: PACU Patient participation: complete - patient participated Level of consciousness: fully awake Pain score: 5 Pain management: adequate Airway patency: adequate Evidence of recall: no Anesthetic complications: no Cardiovascular status: hemodynamically stable and acceptable Respiratory status: acceptable and room air Hydration status: acceptable Pt is: normothermic Nausea/Vomiting status: none * Anesthesia Procedure Notes - Che Zepeda CRNA - 03/09/2019 9:32 AM CDTAssociated Order(s): Airway Airway Patient location: OR Urgency: elective Date/time: 03/09/2019 9:19 AM Indications for airway management: anesthesia Difficult [...] airway Tube type: laser tube ETT size: 5.5 mm Cuffed: yes Technique used for successful ETT placement: direct laryngoscopy Insertion site: oral Blade type: Avery Blade size: 2 Cormack-Lehane (direct): grade I - full view of glottis Initial cuff pressure: 0 cm H2O Cuff volume: 22 mL Cuff inflated with: air Placement verified by: auscultation and CO2 detection Airway secured with: silk tape Number of attempts: 1 Ventilation between attempts: BVM Planned trial extubation: yes * Anesthesia Preprocedure Evaluation - Saman Springer MD - 02/27/2019 10:16 AM CDT Images from the original note were not included. [facility] Planning Preoperative Evaluation Record Telephone Preoperative Evaluation ([facility]) - TELEPHONE ONLY, NO PHYSICAL EXAM Date: 02/27/19 Anesthesia Evaluation Samuel Sanchez is a 73 [...] Cardiovascular Pertinent negatives: hypertension ; CAD ; NV ; CABG ; valvular heart disease; valve [...] stones) Pertinent negatives: renal disease and dialysis Musculoskeletal/Pain + Chronic pain + Osteoarthritis Pertinent negatives: chronic opioid use and previous treatment for opioid use disorder Endocrine / Other + Cancer history- current cancer. Cancer type: current - laryngeal. + Rheumatological disease (Previous on methotrexate, on hold since previous procedure 02/2019) - rheumatoid arthritis. Pertinent negatives: diabetes mellitus; thyroid disease; obesity (BMI >30) and transplanted organ Functional Capacity Functional capacity: 4-6 METs Comments: Patient states that they can walk 4 blocks at a moderate pace w/no SOB or CP Patient reports that he walks 2 miles daily Review of Systems + productive cough (Patient reports the last few weeks he has had a productive cough with clear phlegm which he attributes to allergies) + easy bruising + chronic pain + hard of hearing (decreased hearing B; wears hearing aides occasionally) + heartburn + dysphagia Pertinent negatives: wheezing; SOB; recent cold/flu; fever; chest pain; palpitations; orthopnea; pedal edema; PND; Sickle Cell disease/trait; previous transfusion; transfusion reaction; melena/hematochezia; bleeding problems; syncope; dizziness; muscle weakness; numbness/tingling; vision loss; nausea; diarrhea; dentures/partials; chipped/loose teeth; abdominal [...] by telephone; patient declined to have preoperative instructionsmailed, has instructions from previous procedure. Patient verbalized understanding of preoperative plan. TPAP process complete. Preoperative evaluation performed by Riya Sung NP on 02/27/19 at 10:25 AM. . Patient Active Problem List Diagnosis ??? 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 Headache ??? retirement use of drug ??? Discogenic low back pain ??? Shortness of breath ??? Atypical migraine ??? Calculus of kidney ??? Dyspepsia ??? Squamous cell carcinoma of larynx (CMS/HCC) Past Medical History: Diagnosis Date ??? Arthritis arthritis ??? Calculus of kidney Nephrolithiasis ??? Cancer of vocal cord (CMS/HCC) ??? Gastroesophageal reflux disease acid reflux ??? [...] OTHER MEDICAL hemorroids; Comments: Had done at [facility] in [place] ??? HX OTHER MEDICAL bladder infection ??? HX OTHER MEDICAL kidney stone ??? Malignant neoplasm of prostate (CMS/HCC) 1998 prostate Past Surgical History: Procedure Laterality Date ??? BICEPS TENODESIS Left ??? EAR SURGERY Left s repair perforated eardrum ??? LARYNGOSCOPY Right 01/09/2019 Direct laryngoscopy with biopsy ??? LARYNGOSCOPY Right 02/16/2019 Suspension microlaryngoscopy with KTP laser photoablation Right vocal fold lesion ??? LITHOTRIPSY - 2019 5 or 6 times ??? ORCHIECTOMY Right s ??? PROSTATE SURGERY Pinched Prostate: surgically repaired ??? ROTATOR CUFF REPAIR Right and removal of bone spurs ??? VASECTOMY No Known Allergies Med List Status: Nurse Complete Set By: Alona Haskins RN at 02/26/2019 4:06 PM Taking? Last Dose Start Date End Date Provider biotin 10,000 mcg capsule -- -- Historical Provider, esomeprazole DR (NexIUM) 20 mg capsule -- -- Historical Provider, folic acid (FOLVITE) 1 mg tablet -- -- Historical Provider, Notes: Not taking jupucjhlvuq-waynaqqlz-myn C-Mn capsule -- -- Historical Provider, methotrexate 2.5 mg tablet -- -- Historical Provider, Notes: Not taking pvkumgmykyhx-Un-pics-minerals 18-0.4 mg tablet -- -- Historical Provider, ranitidine (ZANTAC) 300 mg capsule -- -- Historical Provider, tamsulosin (FLOMAX) 0.4 mg extended release capsule -- -- Historical Provider, No current facility-administered medications for this encounter. Current Outpatient Medications: ??? biotin 10,000 mcg capsule ??? esomeprazole DR (NexIUM) 20 mg capsule ??? folic acid (FOLVITE) 1 mg tablet ??? sqetkzqehkz-hlbgmcrfb-gvv C-Mn capsule ??? hgviwdfqxwuc-Lg-imes-minerals 18-0.4 mg tablet ??? ranitidine (ZANTAC) 300 mg capsule ??? tamsulosin (FLOMAX) 0.4 mg extended release capsule ??? methotrexate 2.5 mg tablet Social History Tobacco Use Smoking Status Former Smoker ??? Packs/day: 1.50 ??? Years: 30.00 ??? Pack years: 45.00 ??? Types: Cigarettes ??? Start date: 1961 ??? Last attempt to quit: 1995 ??? [...] Other adopted ??? Anesthesia problems Neg Hx PAT Physical Exam There were no vitals [...] Attestation: This PAT evaluation Airway Exam: Mallampati: III Cervical ROM: FROM Cardiovascular Exam: Rate: regular Rhythm: regular Pulmonary Exam: LCTA, bilat Anesthesia Plan ASA 2 My patient is approved for the Anesthesia Controlled Medication protocol when under care of a CONSTRUCTION PRODUCER Planned anesthesia: General Informed Consent: Anesthesia plan [...] Procedure Name Priority Date/Time Associated Diagnosis Comments NV AN PROCEDURE PLACEHOLDER Routine 03/09/2019 9:32 AM CDT Procedure Note - Che Zepeda CRNA - 03/09/2019 9:32 AM CDTThis note is in progress. Airway Patient location: OR Urgency: elective Date/time: 03/09/2019 9:19 AM Indications for airway management: anesthesia Difficult [...] airway Tube type: laser tube ETT size: 5.5 mm Cuffed: yes Technique used for successful ETT placement: direct laryngoscopy Insertion site: oral Blade type: Avery Blade size: 2 Cormack-Lehane (direct): grade I - full view of glottis Initial cuff pressure: 0 cm H2O Cuff volume: 22 mL Cuff inflated with: air Placement verified by: auscultation and CO2 detection Airway secured with: silk tape Number of attempts: 1 Ventilation between attempts: BVM Planned trial extubation: yes NV AN ELECTIVE ENDOTRACHEAL AIRWAY Routine 03/09/2019 9:32 AM CDT Procedure Note - Che Zepeda CRNA - 03/09/2019 9:32 AM CDTThis note is in progress. Airway Patient location: OR Urgency: elective Date/time: 03/09/2019 9:19 AM Indications for airway management: anesthesia Difficult [...] airway Tube type: laser tube ETT size: 5.5 mm Cuffed: yes Technique used for successful ETT placement: direct laryngoscopy Insertion site: oral Blade type: Aveyr Blade size: 2 Cormack-Lehane (direct): grade I - full view of glottis Initial cuff pressure: 0 cm H2O Cuff volume: 22 mL Cuff inflated with: air Placement verified by: auscultation and CO2 detection Airway secured with: silk tape Number of attempts: 1 Ventilation between attempts: BVM Planned trial extubation: yes documented in this encounter Visit Diagnoses Not on filedocumented in this encounter Administered Medications Inactive Administered Medications - up to 3 most recent administrations Medication Order MAR Action Action Date Dose Rate Site dexamethasone (DECADRON) preservative free solution intravenous, Administer over 2 Minutes, As needed, Starting on Sat03/09/19 at 0916, Anesthesia Intra-op Given 03/09/2019 9:16 AM CDT 8 mg famotidine (PEPCID) injection intravenous, Administer over 2 Minutes, As needed, Starting on Sat03/09/19 at 0906, Anesthesia Intra-op Given 03/09/2019 9:06 AM CDT 20 mg fentaNYL (SUBLIMAZE) preservative free injection intravenous, As needed, Starting on Sat03/09/19 at 0916, Anesthesia Intra-op Given 03/09/2019 9:16 AM CDT 50 mcg labetalol (NORMODYNE,TRANDATE) injection As needed, Starting on Sat03/09/19 at 0937, Anesthesia Intra-op Given 03/09/2019 9:37 AM CDT 10 mg lidocaine PF (XYLOCAINE) 10 mg/mL (1 %) preservative free injection As needed, Starting on Sat03/09/19 at 0916, Anesthesia Intra-op Given 03/09/2019 9:16 AM CDT 50 mg ondansetron (ZOFRAN) injection intravenous, Administer over 2 Minutes, As needed, Starting on Sat03/09/19 at 0906, Anesthesia Intra-op Given 03/09/2019 9:06 AM CDT 4 mg propofol (DIPRIVAN) IV intravenous, As needed, Starting on Sat03/09/19 at 0916, Anesthesia Intra-op Given 03/09/2019 9:16 AM CDT 200 mg rocuronium (ZEMURON) injection intravenous, As needed, Starting on Sat03/09/19 at 0916, Anesthesia Intra-op Given 03/09/2019 9:16 AM CDT 35 mg sugammadex (BRIDION) 100 mg/mL intravenous solution As needed, Starting on Sat03/09/19 at 0951, Anesthesia Intra-op Given 03/09/2019 9:51 AM CDT 200 mg documented in this encounter Orders Procedures Count Last Ordered Date First Orde red Date Airway 1 03/09/2019 documented in this encounter Care Teams Metal Stamping Machine Operator Relationship Specialty [place] [id number] [address] Rheumatology 02/21/17 Lashay Downs, GAY Registered Nurse Pain Management 06/17/17 Duke Do, RN Registered Nurse 09/09/17 Ngozi Petty MD Radiation Oncologist Radiation Oncology 02/05/19 Jose Roberto Marx MD Referring Physician Otolaryngology 02/05/19 documented as of this encounter
--- OUTSIDE RECORDS SUMMARY | 2024-06-14 16:50 | XMS_ITS | Encounter Summary ---
Author Organization [facility] Address [address] [address] Care Team Providers Care Wildlife Ecology Professor Name Role Phone Criss Blanco MD Unavailable Lashay Downs RN Unavailable Unavailab Duke Goodwin RN Unavailable UnavailNgozi Husain MD Unavailable [phone] Jose Roberto Marx MD Unavailable [phone] Reason for Referral * Injectables (Routine) - Closed Specialty Diagnoses / Procedures Referred By Contac t Referred To Contact Diagnoses Primary osteoarthritis of right knee Procedures Large Joint (Hip, Knee, Shoulder) Injection: R knee Iris Patten PA Phone: tel: fax: [facility] Referral ID Status Reason Start Date Expiration Date Visits Re quested Visits Authorized [id number] Closed 03/12/2019 09/20/2020 1 1 * Diagnostic Imaging (Routine) - Closed Specialty Diagnoses / Procedures Referred By Contac t Referred To Contact Diagnoses Primary osteoarthritis of right knee Procedures XR Pelvis 1 or 2 Views Iris Patten PA Phone: tel: fax: Referral ID Status Reason Start Date Expiration Date Visits Re quested Visits Authorized [id number] Closed 02/24/2019 09/04/2020 1 1 * Diagnostic Imaging (Routine) - Closed Specialty Diagnoses / Procedures Referred By Alcira forrest Referred To Contact Diagnoses Primary osteoarthritis of right knee Procedures XR Knee Right 4 or More Views Iris Patten PA Phone: tel: fax: Referral ID Status Reason Start Date Expiration Date Visits Re quested Visits Authorized [id number] Closed 02/24/2019 09/04/2020 1 1 Reason for Visit * Reason Comments Pain Encounter Details Date Type Department Care Team (Late st Contact Info) Description 02/24/2019 8:15 AM CDT Office Visit [facility] Orthopedics and Sports Medicine [address] [facility] [address] [place] [id number] Iris Patten PA [address] [facility] [address] [place] [address] Primary osteoarthritis of right knee (Primary Dx) Social History Tobacco Use Types [...] on file Legal 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 Gender Identity Not on file Sexual Orientation Not on file 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 on file Not on natalie e documented as of this encounter Last Filed Vital Signs Vital Sign Reading Time Taken Comments Blood Pressure 123/81 02/24/2019 8:31 AM CDT Pulse 65 02/24/2019 8:31 AM CDT Temperature - - Respiratory Rate - - Oxygen Saturation - - Inhaled Oxygen Concentration - - Weight 103 kg (227 lb) 02/24/2019 8:31 AM CDT Height 185.4 cm (6' 1 ) 02/24/2019 8:31 AM CDT Body Mass Index 29.95 02/24/2019 8:31 AM CDT documented in this encounter Progress Notes * Iris Pattenine, ZOILA - 02/24/2019 8:15 AM CDTAssociated Order(s): Large Joint (Hip, Knee, Shoulder) Injection: R knee Post-Procedure Diagnose(s): Primary osteoarthritis of right knee Images from the original note were not included. NEW PATIENT VISIT Subjective CHIEF COMPLAINT He had concerns including Pain of the Right Knee. HISTORY OF PRESENT ILLINESS Patient here with complaints of right knee and right thigh pain. Symptoms have been present the last year and worsening over the last month. He describes a moderate aching sensation. He denies any associated groin pain; symptoms are worse at night with a deep aching sensation. He is currently taking trazodone on muscle relaxers for relief. He is active and likes to walk. He reports walking a couple miles every morning. 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 He underwent surgery for this on 02/16/2019. 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 He also has no past medical history of Acute respiratory failure requiring reintubation ([facility]), Awareness under anesthesia, Delayed emergence from general anesthesia, Hard to intubate, Malignant hyperthermia, Motion sickness, PONV (postoperative nausea and vomiting), Postoperative delirium, Pseudocholinesterase deficiency, or Sleep apnea. PAST SURGICAL HISTORY He has a past surgical history that includes Biceps Tenodesis (Left, ); Ear Surgery (Left, ); Orchiectomy (Right, ); Vasectomy (); Rotator cuff repair (Right, ); Lithotripsy ( - 2018); Laryngoscopy (Right, 01/09/2019); Laryngoscopy (Right, 02/16/2019); and Prostate surgery (). MEDICATIONS He has a current medication list which includes the following prescription(s): biotin, esomeprazoledr, folic acid, aiofwpictjp-gfgonlwyp-vxd c-mn, methotrexate, qemzsnfdafkb-kf-zctt-minerals, ranitidine, tamsulosin, and hydrocodone-acetaminophen. ALLERGIES He has No Known Allergies. SOCIAL HISTORY He reports that he quit smoking about 23 years ago. His smoking use included cigarettes. He startedsmoking about 60 years ago. He has a 45.00 pack-year smoking history. He has never used smokeless tobacco. He reports that he drinks about 1.8 oz of alcohol per week. He reports that he has current or past drug history. FAMILY HISTORY Family History Adopted: Yes Problem Relation Age of Onset ??? Other Other adopted ??? Other Other adopted ??? Anesthesia problems Neg Hx REVIEW OF SYSTEMS Review of Systems Constitutional: Negative for chills, fatigue and fever. HENT: Gum problems Eyes: Negative for pain and visual disturbance. Respiratory: Negative for chest tightness and shortness of breath. Cardiovascular: Negative for chest pain and leg swelling. Gastrointestinal: Negative for abdominal pain, constipation, diarrhea and vomiting. Genitourinary: Negative for dysuria, frequency and urgency. Musculoskeletal: Negative for myalgias. Skin: Negative for rash and wound. Allergic/Immunologic: Positive for environmental allergies. Neurological: Negative for dizziness, weakness and light-headedness. Hematological: Does not bruise/bleed easily. Psychiatric/Behavioral: Negative for confusion and hallucinations. Objective PHYSICAL EXAM BP 123/81 Pulse 65 Ht 185.4 cm (6' 1 ) Wt 103 kg (227 lb) BMI 29.95 kg/m?? Right knee Inspection Erythema: absent Swelling: absent Surgical scar/wound: absent. Gait: normal Palpation Tenderness: present. The tenderness is located in the medial joint line and patella. Crepitus: positive Patella grind: positive Range of motion The patient has normal range of motion of the right knee. Stability The patient has normal AP and ML stability of the right knee. Strength The patient has 5/5 strength thoughout right knee. Neurovascular The patient has normal vascular on the right side of their body. The patient has normal sensation on the right side of their body. Left knee The patient has normal inspection, palpation, range of motion, strength, and stabiltiy of the left knee. REVIEW OF X-RAYS/STUDIES/LABS XR Knee Right 4 or More Views Weightbearing views of the right knee are reviewed and demonstrate no acute fractures or osseous changes. Moderate tricompartmental degenerative changes present with joint space narrowing, osteophyteformation, and subchondral sclerosis. Osteochondroma of the medial tibia is noted. XR Pelvis 1 or 2 Views X-ray of the pelvis viewed and interpreted. There is no evidence of fracture, subluxation, or bony abnormality. 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 Assessment/Plan Samuel was seen today for pain. Diagnoses and all orders for this visit: Primary osteoarthritis of right knee - XR Knee Right 4 or More Views - XR Pelvis 1 or 2 Views Other orders - Large Joint (Hip, Knee, Shoulder) Injection Large Joint (Hip, Knee, Shoulder) Injection: R knee Date/Time: 02/24/2019 7:30 PM Performed by: ZOILA Adams Authorized by: ZOILA Adams Large Joint Injection/Aspiration: Consent Given by: Patient Site marked: the procedure site was marked Timeout: prior to procedure the correct patient, procedure, and site was verified Verbal consent obtained: Yes Supporting Documentation: Indications: Pain Procedure Details: Location: Knee Site: R knee Prep: patient was prepped and draped in usual sterile fashion Needle Size: 22 G Approach: Anterolateral Medications: 3 mL lidocaine 20 mg/mL (2 %); 80 mg methylPREDNISolone acetate 80 mg/mL Patient tolerance: Patient tolerated the procedure well with no immediate complications Plan We discussed and reviewed his x-rays. Patient would like to manage his symptoms conservatively, due to his current circumstances of undergoing treatment for squamous cell carcinoma of the larynx. He elected to proceed with a corticosteroid injection to the right knee. He tolerated well and postinjection instructions were provided. Prior to injecting, we did contact his surgeon, Dr. Valdez, who verified that this would not interfere with his planned treatment of his carcinoma. Patient will follow up with us on a p.r.n. Basis. Discussed repeat corticosteroid injection intervals Q 3-4 months p.r.n.. He will contact us if any issues in the interim All questions were answered. Patient expressed full understanding and agreement of plan. ZOILA Adams documented in this encounter Plan of Treatment Not on file documented as of this encounter Procedures Procedure Name Priority Date/Time Associated Diagnosis Comments XR PELVIS 1 OR 2 VIEWS Schedule Routine, Read Routine (OP Routine) 03/12/2019 7:30 PM CDT Primary osteoarthritis of right knee XR KNEE RIGHT 4 OR MORE VIEWS Schedule Routine, Read Routine (OP Routine) 03/12/2019 7:29 PM CDT Primary osteoarthritis of right knee CA ARTHROCENTESIS ASPIR&/INJ MAJOR JT/BURSA W/O US Routine 02/24/2019 8:15 AM CDT Primary osteoarthritis of right knee documented in this encounter Results * XR Pelvis 1 or 2 Views (03/12/2019 7:30 PM CDT) Anatomical Region Laterality Modality Body, Pelvis N/A Radiographic Corin ging Narrative 03/12/2019 7:30 PM CDT X-ray of the pelvis viewed and interpreted. ??There is no evidence of fracture, subluxation, or bony abnormality. 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 Iris CUMMINGS IMG XR PROCEDURES Final Result * XR Knee Right 4 or More Views (03/12/2019 7:29 PM CDT) Anatomical Region Laterality Modality Lower Extremities, Knee Right Radiogra phic Imaging Narrative 03/12/2019 7:29 PM CDT Weightbearing views of the right knee are reviewed and demonstrate no acute fractures or osseous changes. ??Moderate tricompartmental degenerative changes present with joint space narrowing, osteophyte formation, and subchondral sclerosis. ??Osteochondroma of the medial tibia is noted. Iris CUM[facility]INGS IMG XR PROCEDURES Final Result * CA ARTHROCENTESIS ASPIR&/INJ MAJOR JT/BURSA W/O US (02/24/2019 8:15 AM CDT) Narrative Iris Patten PA - 02/24/2019 8:15 AM CDT ZOILA Adams ? 03/12/2019 ??7:33 PM Large Joint (Hip, Knee, Shoulder) Injection: R knee Date/Time: 02/24/2019 7:30 PM Performed by: ZOILA Adams Authorized by: ZOILA Adams Large Joint Injection/Aspiration: ??Consent Given by: ??Patient ??Site marked: the procedure site was marked ?Timeout: prior to procedure the correct patient, procedure, and site was verified ?Verbal consent obtained: Yes ?? Supporting Documentation: ??Indications: ??Pain Procedure Details: ??Location: ??Knee ??Site: ??R knee ??Prep: patient was prepped and draped in usual sterile fashion ?Needle Size: ??22 G ??Approach: ??Anterolateral ??Medications: ??3 mL lidocaine 20 mg/mL (2 %); 80 mg methylPREDNISolone acetate 80 mg/mL ??Patient tolerance: ??Patient tolerated the procedure well with no immediate complications Iris [facility]/BEDSIDE ORDER DIEGO Final Result documented in this encounter Visit Diagnoses Diagnosis Primary osteoarthritis of right knee- Primary documented in this encounter Administered Medications Inactive Administered Medications - up to 3 most recent administrations Medication Order MAR Action Action Date Dose Rate Site lidocaine (XYLOCAINE) 20 mg/mL (2 %) preservative free injection 3 mL 3 mL, One-Time Injection, Starting on Sat02/24/19 at 1930, For 1 doseIndications:Primary osteoarthritis of right knee Given 02/24/2019 7:30 PM CDT 3 mL methylPREDNISolone acetate (DEPO-medrol) injection 80 mg 80 mg, intra-articular, One-Time Injection, Starting on Sat02/24/19 at 1930, For 1 doseIndications:Primary osteoarthritis of right knee Given 02/24/2019 7:30 PM CDT 80 mg documented in this encounter Discontinued Medications Medication Sig Discontinue Reason Start Date End Da te HYDROcodone-acetaminophe n (HYCET) solution 7.5-325 mg/15 mLIndications:Pain Take 15 mL by mouth every 6 (six) hours as needed for pain Therapy completed 02/17/2019 02/24/2019 documented as of this encounter Care Teams Wildlife Ecology Professor Relationship Specialty [place] [address] [facility] [address] [place] [address] Rheumatology 02/21/17 Lashay Downs, RN Registered Nurse Pain Management 06/17/17 Duke Do, RN Registered Nurse 09/09/17 Ngozi Petty MD Radiation Oncologist Radiation Oncology 02/05/19 Jose Roberto Marx MD Referring Physician Otolaryngology 02/05/19 documented as of this encounter
--- OUTSIDE RECORDS SUMMARY | 2024-06-14 16:50 | XMS_ITS | Encounter Summary ---
Author Organization [facility] Address [address] [place] [address] Phone Care Team Providers Care Bench Lathe Operator Name Role Phone Criss Blanco MD Unavailable Lashay Downs RN Unavailable Unavailab Duke Goodwin RN Unavailable UnavailNgozi Husain MD Unavailable Jose Roberto Marx MD Unavailable [phone] Encounter Details Date Type Department Care Team (Late st Contact Info) Description 09/30/2019 Orders Only [facility] ENT [address] [place] [address] Marisol Madrid RN 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) Social History Tobacco Use Types [...] file 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
--- OUTSIDE RECORDS SUMMARY | 2024-06-14 16:50 | XMS_ITS | Encounter Summary ---
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 Gender Identity Not on file Sexual Orientation Not on file 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 on file Not on natalie e documented as of this encounter Plan of Treatment Not on file documented as of this encounter Visit Diagnoses Not on filedocumented in this encounter Care Teams Perfect Bind Machine Operator Relationship Specialty [place] [address] [facility] [address] [place] [address] Rheumatology 02/21/17 Lashay Downs, RN Registered Nurse Pain Management 06/17/17 Duke Do, RN Registered Nurse 09/09/17 Ngozi Petty MD Radiation Oncologist Radiation Oncology 02/05/19 Jose Roberto Marx MD Referring Physician Otolaryngology 02/05/19 documented as of this encounter
--- OUTSIDE RECORDS SUMMARY | 2024-06-14 16:50 | XMS_ITS | Encounter Summary ---
Author Organization [facility] Address [address] [place] [address] Phone Care Team Providers Care Director Of Intercollegiate Athletics Name Role Phone Criss Blanco MD Unavailable Lashay Downs RN Unavailable Unavailab Duke Goodwin RN Unavailable UnavailNgozi Husain MD Unavailable Jose Roberto Marx MD Unavailable [phone] Encounter Details Date Type Department Care Team (Late st Contact Info) Description 05/12/2019 11:00 AM MIG WELDER Therapy [facility] Otolaryngology [address] [address] Godfrey Rosales, PhD [facility] [address] Vocal fold leukoplakia (Primary Dx); Dysphonia Social History Tobacco Use [...] on file Legal Sex Male 12:56 AM MIG WELDER Gender Identity Not on file Sexual Orientation Not on file 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 REASON FOR VISIT: Samuel Sanchez is a 73-year-old gentleman who is here today for follow-up. 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 He describes his voice quality has significantly improved since this procedure. He has a history of carcinoma in situ and there is known residual microscopic disease at the anterior commissure at the time of the patient's last operation. EXAMINATION: Video stroboscopy technology was used today to adequately assess the laryngeal biomechanics and vocal fold oscillation which cannot be adequately viewed with fiberoptic examination. The patient tolerated a flexible endoscope (F2) passed through the right naris with the use of anna-lidocaine. The patient was taken through a full range of phonatory tasks which includes both high and lowpitch ranges as well as soft and loud phonation. The results were as follows: RESULTS: There is no evidence of paresis or paralysis. At the anterior commissure, there is a smallwhite plaque area. Mucosal wave is roughly intact and symmetric bilaterally. The supraglottis is clear of any lesions. There is minimal supraglottic hyperfunction. IMPRESSION: Samuel Sanchez presents today for residual disease at the anterior commissure. PLAN: A full report will be sent to the referring physician. He will be taken to the operating roomfor awake KTP laser excision of the white plaque at the anterior commissure. Godfrey Rosales, Ph.D., CCC-CHEMICAL RECOVERY OPERATOR Cosigned by Nathanael Valdez MD at 05/12/2019 1:43 PM MIG WELDER WELDER WELDER documented in this encounter Plan of Treatment Not on file documented as of this encounter Visit Diagnoses Diagnosis Vocal fold leukoplakia- Primary Other diseases of vocal cords Dysphonia documented in this encounter Care Teams Director Of Intercollegiate Athletics Relationship Specialty [place] [address] [facility] [address] [place] [address] Rheumatology 02/21/17 Lashay Downs, RN Registered Nurse Pain Management 06/17/17 Duke Do, RN Registered Nurse 09/09/17 Ngozi Petty MD Radiation Oncologist Radiation Oncology 02/05/19 Jose Roberto Marx MD Referring Physician Otolaryngology 02/05/19 documented as of this encounter
--- OUTSIDE RECORDS SUMMARY | 2024-06-14 16:50 | XMS_ITS | Encounter Summary ---
Author Organization [facility] Healthcare Address [address] [place] [address] Care Team Providers Care Pearl Restorer Name Role Phone Criss Blanco MD Unavailable Lashay Downs RN Unavailable Unavailab Duke Goodwin RN Unavailable UnavailNgozi Husain MD Unavailable [phone] Jose Roberto Marx MD Unavailable [phone] Encounter Details Date Type Department Care Team (Late st Contact Info) Description 02/16/2019 10:05 AM CDT - 02/16/2019 11:30 AM CDT Surgery [facility] Operating Room [address] [place] [address] Nathanael Valdez MD [address] [place] [address] Suspension microlaryngoscopy with KTP laser treatment Surgery Details Date/Time Status Location OR Service Patient Class Case Class Case Type Trauma Case? 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 Gender Identity Not on file Sexual Orientation Not on file 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 on file Not on natalie e documented as of this encounter Last Filed Vital Signs Vital Sign Reading Time Taken Comments Blood Pressure 114/86 02/16/2019 8:15 AM CDT Pulse 74 02/16/2019 8:15 AM CDT Temperature 36.2 ??C (97.2 ??F) 02/16/2019 8:15 AM CD T Respiratory Rate 14 02/16/2019 8:15 AM CDT Oxygen Saturation 94% 02/16/2019 8:15 AM CDT Inhaled Oxygen Concentration - - Weight 102.1 kg (225 lb) 02/16/2019 8:15 AM CDT Height 185.4 cm (6' 1 ) 02/16/2019 8:15 AM CDT Body Mass Index 29.69 02/16/2019 8:15 AM CDT documented in this encounter Medications at Time of Discharge biotin 10,000 mcg capsuleIndication s:supplement Take 1 capsule by mouth every morning [address] (NexIUM) 20 mg capsuleIndication s:Treatment of Non-Bleeding Gastric Disorder Take 20 mg by mouth daily before breakfast 1 folic acid (FOLVITE) 1 mg tabletIndications :Folate Deficiency Take 1 mg by mouth every morning 9 glucosamine-chond roit-vit C-Mn capsuleIndication s:supplement Take 1 capsule by mouth every morning 9 methotrexate 2.5 mg tabletIndications :Rheumatoid Arthritis,8 tabs weekly Take 20 mg by mouth once a week 9 cczcbvxunxgh-Uu-x foreign-minerals 18-0.4 mg tabletIndications :Mineral Deficiency Prevention,Vitami n Deficiency Prevention Take 1 tablet by mouth every morning 0 ranitidine (ZANTAC) 300 mg capsuleIndication s:gastroesophagea l reflux disease Take 300 mg by mouth nightly 0 tamsulosin (FLOMAX) 0.4 mg extended release capsuleIndication s:benign prostatic hyperplasia with lower urinary tract sx Take 0.4 mg by mouth every morning 2 documented as of this encounter Ordered Prescriptions Prescription Sig Dispense Quantity Refills Last Filled Start Date End Date HYDROcodone-acetam inophen (HYCET) solution 7.5-325 mg/15 mLIndications:Pain Take 15 mL by mouth every 6 (six) hours as needed for pain for up to 3 days 118 mL 02/16/2019 02/16/2019 documented in this encounter Discharge Disposition Disposition Code Departure Means Destination Discharge to home or self care documented in this encounter H&P Notes * Henri Leal MD - 02/16/2019 8:20 AM CDT I have reviewed the H&P, examined the patient, and endorse the findings as written. Plan of Care : Based on the above findings, I consider Pasquale Sanchez to be an acceptable risk for : Procedure(s): Suspension microlaryngoscopy with KTP laser treatment Cosigned by Nathanael Valdez MD at 02/16/2019 9:18 AM CDT Source Note - Nathanael Valdez MD - 02/05/2019 3:15 PM CDT PATIENT NAME: Pasquale Sanchez : 1945 DOS: 02/05/2019 REFERRING PHYSICIAN: Ngozi Petty MD CHIEF COMPLAINT: Chief Complaint Patient presents with ??? Squamous Cell Carcinoma HISTORY OF PRESENT ILLNESS: Pasquale Sanchez is a 73 y.o. male who presents today in evaluation for [id number] SCCA of the rightTVC. He has had one year of progressive hoarseness, poor voice projection. Denies pain, dysphagia, odynophagia, dyspnea, aspiration, weight loss, otalgia. He was evaluated by an ENT Dr. Marx who performed a DL biopsy demonstrating moderately differentiated p16 negative SCCa of the right TVC. He hassince had a PET/CT with no aniceto or distant metastasis. He was seen by Dr. Petty in Radiation Oncology who offered definitive radiation but felt he may also be a candidate for surgical resection prompting referral to this office for evaluation. OUTCOMES: Glottic Function Index Score: 8 Reflux Severity Index Score: 22 VRQOL Raw Score: 12 Cough Severity Index Score: 11 ALLERGIES: Allergies Allergen Reactions ??? Hydrocodone-Acetaminophen ??? Hydrocodone Itching Reaction: itching, REVIEW OF SYSTEMS: Review of Systems Constitutional: [...] dysphoric mood and hallucinations. EXAM: Physical Exam Constitutional: He is oriented to person, place, and time. He appears well- developed and well-nourished. He does not have a sickly appearance. No distress. HENT: Head: Normocephalic and atraumatic. Head is without abrasion, without contusion, without right periorbital erythema and without left periorbital erythema. Hair is normal. Right Ear: Hearing and external ear normal. Left Ear: Hearing and external ear normal. Nose: Nose normal. No mucosal edema, rhinorrhea, nasal deformity or septal deviation. Mouth/Throat: Uvula is midline, oropharynx is clear and moist and mucous membranes are normal. No oral lesions. No trismus in the jaw. Normal dentition. No oropharyngeal exudate, posterior oropharyngeal edema or posterior oropharyngeal erythema. Tonsils are 2+ on the right. Tonsils are 2+ on the left. The patient's voice perceptually sounds mildly hoarse and soft. The pitch is expected for his age and gender. Eyes: EOM are normal. Neck: Trachea normal and full passive range of motion without pain. Neck supple. No tracheal tenderness and no muscular tenderness present. No neck rigidity. No tracheal deviation and no erythema present. No thyromegaly present. Pulmonary/Chest: Effort normal. No accessory muscle usage or stridor. No tachypnea. No respiratory distress. Musculoskeletal: Normal range of motion. Lymphadenopathy: Head (right side): No submental, no submandibular, no tonsillar, no preauricular, no posterior auricular and no occipital adenopathy present. Head (left side): No submental, no submandibular, no tonsillar, no preauricular, no posterior auricular and no occipital adenopathy present. Right cervical: No superficial cervical, no deep cervical and no posterior cervical adenopathy present. Left cervical: No superficial cervical, no deep cervical and no posterior cervical adenopathy present. Neurological: He is alert and oriented to person, place, and time. No cranial nerve deficit. Skin: Skin is warm and dry. Psychiatric: He has a normal mood and affect. His behavior is normal. Vitals reviewed. LARYNGEAL EXAM: Rigid videostroboscopy was performed today by me using scope #[id number] in order to evaluate the laryngeal biomechanics and vocal fold oscillatory properties that cannot otherwise be appreciated on flexible fiberoptic or indirect mirror examination. The 70-degree rigid endoscope was introduced through the patient's mouth in the usual fashion while being asked to phonate. The base of tongue, vallecula, supraglottal, and hypopharyngeal structures are anatomically normal in appearance. There is an exophytic, erythematous lesion of the right true vocal fold centered in the midcord with some extension anteriorly but not to the level of the commissure. Vocal fold mobility demonstrates normal motion bila terally. During phonation, glottic closure is complete. The mucosal wave is disorganized on the right cord and asymmetric. There is no supraglottic hyperfunction present on exam.. The scope was then removed from the patient's mouth, and he tolerated the procedure well. RESULTS REVIEWED: Labs Reviewed: none Pathology Reviewed: 01/09/19 Vocal Cord Biopsy, Right, demonstrated P16 negative moderately differentiated invasive squamous cell carcinoma Radiology Reports: 01/22/19 PET/CT demonstrates a subtle asymmetric nodular thickening of the right true vocal fold wit no increased FDG uptake. No evidence of aniceto or distant metastasis. Review of Scans: none Old Records/Discussions: Reviewed consultation note with Dr. Petty 01/30/19 indicating her discussionabout radiation and the risks and benefits. ASSESSMENT/PLAN: Squamous cell carcinoma of larynx (CMS/HCC) We discussed the options of therapy for [...] options before committing to radiation or surgery. DISPOSITION: Return pending patient decision for surgery vs radiation. OK to schedule for surgery if desired.. Nathanael Valdez MD, FACS [employer] [facility] Division of Laryngology Department of Otolaryngology--Head & Neck Surgery Portions of this note were dictated using M*Modal Fluency Direct. Validation Consultant variances may occur. I have seen and examined the patient. I agree with the findings and plan of care as documented in the resident/fellow's note. 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 Suspension microlaryngoscopy with KTP laser photoablation of right vocal fold lesion OPERATIVE FINDINGS: Relatively superficial disease easily removed. Bit more stuck down in mid-cord, but not extending into the muscle INDICATIONS FOR PROCEDURE: Pasquale Sanchez is a 73 y.o. male with a history of right true vocal fold SCCa. DESCRIPTION OF PROCEDURE PERFORMED: The patient was [...] stand. Photodocumentation was first performed using the 0- and 70-degree laryngeal telescopes. The operative microscope was then brought into the field to perform the remainder of the surgery under binocular microscopy for increased accuracy and precision. Wet towels were draped onto the patient's face. A laryngeal injection was needle was then inserted through the laryngoscope in order to perform a subepithelial saline infusion bilaterally by injecting posterolateral to the lesion. Wet towels were then draped on the patient's face. A cup forceps was used to remove an area of exophytic tissue in the mid cord for biopsy. A 0.6 mm KTP laser fiber set at 35W, 15 ms pulse-width, and 2 pps was then used to photoablate the lesion initially in a non-contact fashion, allowing the to sweep off the treated surface of the lamina propria. This was carried along the length of the entire vocal fold beforeswitching to contact mode to treat the deeper tissue. The suction was then to help lift the lesion o ff the underlying tissue, and the deeper margin was then treated. There was a bit more of the lesion stuck at the mid cord just before the free edge that required deeper treated. This area was sampled as a deep margin. Margins were then lifted from the edges of the treated surface at the posterior-superior, anterior-superior, posterior-inferior, anterior-inferior, anterior, and posterior regions.These were submitted for permanent analysis given the relatively small size of the margins. Hemostasis was achieved using Afrin-soaked cottonoids, and [...] EBL: Minimal IV Fluids: Per anesthesia Specimens: biopsy, deep, posterior-superior, anterior-superior, posterior- inferior, anterior-inferior, anterior, and posterior Sponge/Instrument/Needle Count: Correct at end of case Condition: Stable to the PACU Attestation: Nathanael Mcneal MD, was present and participated in the entirety of the procedure * Pre-Procedure Instructions - Melissa Terrazas NP - 02/10/2019 10:54 AM CDT [facility] Preoperative [facility] Planning CPAP Clinic Location: [facility] The night before your surgery: * [...] valuables at home or with your family. You may want to bring a credit card if you want to use our Mobile Pharmacy for your discharge medications. Outpatient Surgery: * You must have a [...] Medications: Pre-Surgery Instructions: Medication Instructions ??? biotin 10,000 mcg capsule Stop taking 1 week prior to surgery ??? esomeprazole DR (NexIUM) 20 mg capsule Take morning of surgery ??? folic acid (FOLVITE) 1 mg tablet Don't take on day of surgery ??? pidzpefrrlp-nmjizqsnv-cjg C-Mn capsule Stop taking 1 week prior to surgery ??? cbmyofbybudt-Ow-fhuh-minerals 18-0.4 mg tablet Stop taking 1 week prior to surgery ??? ranitidine (ZANTAC) 300 mg capsule Take as normal ??? tamsulosin (FLOMAX) 0.4 mg extended release capsule Take morning of surgery ??? methotrexate 2.5 mg tablet Patient not taking per prescriber's instructions General Instructions For Medications: ?? Stop all of these medications 5 days prior to your surgery: excedrin, motrin, advil, ibuprofen, aleve, naproxen, celebrex, celecoxib, meloxicam ?? Stop all of these medications 7-14 days prior to your surgery: Vitamin E, Fish Oil (Lovaza, Stanton 3), Herbal medicines, Diet Pills ?? If you have pain, you may [...] before surgery * Perioperative Nursing Note - Siddhartha Whitmore RN - 02/06/2019 2:53 PM CDT [facility] for Preoperative Assessment and Planning Perioperative Nursing Note Telephone Preoperative Evaluation (BJW) - TELEPHONE ONLY, NO PHYSICAL EXAM Date: 02/06/19 Vitals: 02/06/19 1430 Weight: 102.1 kg (225 lb) Height: 185.4 cm (6' 1 ) Social History Tobacco Use Smoking Status Former Smoker ??? Packs/day: 1.50 ??? Years: 30.00 ??? Pack years: 45.00 ??? Types: Cigarettes ??? Start date: 1958 ??? Last attempt to quit: 1995 ??? Years since quittin.6 Smokeless Tobacco Never Used Substance and Sexual Activity Alcohol Use Yes ??? Alcohol/week: 1.8 oz ??? Types: 3 Standard drinks or equivalent per week ??? Frequency: 2-3 times a week ??? Binge frequency: Weekly Substance and Sexual Activity Drug Use Not Currently Outpatient Medications Marked as Taking for the 02/16/19 encounter (Hospital Encounter) with Nathanael Valdez MD Medication Sig Dispense Refill ??? biotin 10,000 mcg capsule Take 1 capsule by mouth every morning ??? esomeprazole DR (NexIUM) 20 mg capsule Take 20 mg by mouth daily before breakfast ??? folic acid (FOLVITE) 1 mg tablet Take 1 mg by mouth every morning ??? emlszprtycy-mrulauvrt-kzc C-Mn capsule Take 1 capsule by mouth every morning ??? iecmfxhqnfno-Qk-adfr-minerals 18-0.4 mg tablet Take 1 tablet by mouth every morning ??? ranitidine (ZANTAC) 300 mg capsule Take 300 mg by mouth nightly ??? tamsulosin (FLOMAX) 0.4 mg extended release capsule Take 0.4 mg by mouth every morning Implants No active implants to display in this view. SKIN Piercings Remaining: No SCREENINGS Banuelos Fall Risk Score: 0 Marcelle index score: 100 Is someone currently physically or emotionally hurting you or your family?: Denies PATIENT CARE PLANNING Advance Directives (For Healthcare) Advance Directive: Patient does not have advance directive Communication/Program Management Professional Needs Communication Needs: Glasses Patient's Preferred Language: Qatari Assistive Devices/DME: Eyeglasses Hearing - Right Ear: Hearing aid Hearing - Left Ear: Hearing aid Discharge Planning Living Arrangements: Spouse/significant other Support Systems: Spouse/significant other ADDITIONAL COMMENTS/ FOLLOW UP * Pre-Procedure Instructions - Siddhartha Whitmore RN - 02/06/2019 2:37 PM CDT PRE-SURGICAL INSTRUCTIONS ?? Surgery location provided to patient ?? Arrival time and surgical time will be provided by your surgeon. ?? Bring a current list of all medications. ?? Bring your photo ID and insurance card with you. ?? Bring a method of payment for any deductible that may be due. Antiseptic/antibacterial soap will decrease the amount of germs on your skin. The chance of gettingan infection will reduce so it is important to minimize risk for infection by doing the following: ?? Change bed linens the night before surgery so you are sleeping in clean sheets . ?? Shower the evening before and the morning of surgery with an antibacterial soap such as dial or chlorhexidine. ?? Wash your hair and face with your regular shampoo ( no conditioners) and facial cleanser. Do notuse the antiseptic soap on your face or hair. ?? Do not shave the area where surgery is to be performed 24 hours prior to surgery. ?? No lotions, powders, creams, make-up, deodorant, hair products or Vaseline the morning of surgery ?? Wear clean loose comfortable clothes the morning of surgery If your surgeon's office has not notified you of your surgery time within 2 days of your surgery, please call [phone] and ask for your surgeon's office José Miguel documented in this encounter Plan of Treatment Not on file documented as of this encounter Procedures Procedure Name Priority Date/Time Associated Diagnosis Comments SURGICAL PATHOLOGY Routine 02/16/2019 11 :11 AM CDT Squamous cell carcinoma of larynx (CMS/HCC) MICROLARYNGOSCOPY 02/16/2019 10: 33 AM CDT Squamous cell carcinoma of larynx (CMS/HCC) Special Needs KTP laser documented in this encounter Results * Surgical pathology (02/16/2019 11:11 AM CDT) Tissue (Vocal Cord, Biopsy) 02/16/2019 11:11 AM CDT Tissue (Vocal cord) 02/16/2019 11:27 AM CDT Tissue (Vocal cord) 02/16/2019 11:28 AM CDT Tissue (Vocal cord) 02/16/2019 11:29 AM CDT Tissue (Vocal cord) 02/16/2019 11:30 AM CDT Tissue (Vocal cord) 02/16/2019 11:31 AM CDT Tissue (Vocal cord) 02/16/2019 11:31 AM CDT Tissue (Vocal cord) 02/16/2019 11:32 AM CDT Narrative PATHOLOGY W - 02/18/2019 3:14 PM CDT EPIC results best viewed via link to PDF [facility] [place] [address] SURGICAL PATHOLOGY REPORT FINAL Patient Name: ?? PASQUALE SANCHEZ Gender: ??M : ??1945 (Age: 73) Address: ??[address] [place] [id number] Hospital #: ??[id number] Taken:02/16/2019 Received:02/16/2019 Reported: 02/18/2019 Patient Type: WC SDS Client ?[facility] Service: Surgery Location: [facility] Physician(s): ??Nathanael Valdez M.D. ZOILA Steward Diagnosis: A. ??Larynx, right vocal cord, excision: ? - Squamous cell carcinoma in situ, at least, see comment B. ??Larynx, right vocal cord posterior superior margin, excision: ? - Fibroconnective tissue without evidence of malignancy C. ??Larynx, right vocal cord anterior superior margin, excision: ? - Squamous mucosa without evidence of malignancy D. ??Larynx, right vocal cord posterior inferior margin, excision: ? - Respiratory epithelium without evidence of malignancy E. ??Larynx, right vocal cord anterior inferior margin, excision: ? - Respiratory epithelium without evidence of malignancy F. ??Larynx, right vocal cord posterior margin, excision: ? -Respiratory epithelium without evidence of malignancy G. ??Larynx, right vocal cord anterior margin, excision: ? - Squamous cell carcinoma in situ H. ??Larynx, right vocal cord deep margin, excision: ? - Fibroconnective tissue without evidence of malignancy l/02/18/2019 11:59 By this signature, I attest that the above diagnosis is based upon my personal examination of the slides(and/or other material indicated in the diagnosis). 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 Microscopic examination substantiates the above cited diagnosis. Additional deeper levels are obtained and examined. Microscopic slide review and interpretation for this case was performed at [facility], Department of Surgical Pathology, [address] [facility], [place] [id number], ??[facility], [place] ??[address] ?? CLIA # [id number] Waqas Olvera M.D (Leon)., Ph.D. History: The patient is a 73-year-old man with history of squamous cell carcinoma larynx. ??Operative procedure: Suspension microlaryngoscopy with KTP laser treatment. Specimen(s) Received: A: Right vocal cord B: Right vocal cord posterior superior margin C: Right vocal cord anterior superior margin D: Right vocal cord posterior inferior margin E: Right vocal cord anterior inferior margin F: Right vocal cord posterior margin G: Right vocal cord anterior margin H: Right vocal cord deep margin Gross Description: Received in formalin labeled with the patient's name and right vocal cord is a 0.3 x 0.1 x 0.1 cm piece of pale-massey tissue. ??Labeled A1. ??Jar 0. Received in formalin labeled with the patient's name and right vocal cord posterior superior margin is a 0.5 x 0.1 by less than 0.1 cm piece of massey tissue. ??Labeled B1. ??Jar 0. Received in formalin labeled with the patient's name and right vocal cord anterior superior margin is a 0.4 x 0.1 by less than 0.1 cm piece of massey tissue. ??Labeled C1. ??Jar 0. Received in formalin labeled with the patient's name and right vocal cord posterior inferior margin are two pieces of red-massey tissue measuring 0.2 x 0.1 by less than 0.1 cm each. ??Labeled D1. ??Jar 0. Received in formalin labeled with the patient's name and right vocal cord anterior inferior margin is a 0.4 x 0.1 x 0.1 cm piece of pale massey tissue. ??Labeled E1. ??Jar 0. Received in formalin labeled with the patient's name and right vocal cord posterior margin is a 0.2 x 0.1 x 0.1 cm piece of red-massey tissue. ??Labeled F1. ??Jar 0. Received in formalin labeled with the patient's name and right vocal cord anterior margin are two pieces of red-massey tissue measuring 0.4 x 0.1 x 0.1 cm. ??Labeled G1. ??Jar 0. Received in formalin labeled with the patient's name and right vocal cord deep margin is a 0.2 x 0.1 x 0.1 cm piece of red-massey tissue. ??Labeled H1. ??Jar 0. ??>>>>> mab/02/16/2019 15:46 Iris Cobos, MS, PA (A By this signature, I attest that the above diagnosis is based upon my personal examination of the slides(and/or other material). The performance characteristics of some immunohistochemical stains, fluorescence in-situ hybridization tests and immunophenotyping by flow cytometry cited in this report (if any) were determined by the Surgical Pathology Department at [facility] as part of an ongoing quality assurance coach program and in compliance with federally mandated [...] determined by the Surgical Pathology Department of [facility]. ??It has not been cleared or approved by the U. S. Food and Drug Administration. IMAGES AND SCANNED DOCUMENTS, IF INCLUDED, ONLY VIEWABLE IN PDF VERSION OF REPORT Nathanael Valdez MD LAB PATHOLOGY ORDERABLES Final Result PATHOLOGY [facility] [phone] documented in this encounter Visit Diagnoses Diagnosis [...] Action Date Dose Rate Site acetaminophen (TYLENOL) 32 mg/mL oral solution 1,000 mg 1,000 mg, oral, Once, On Sat02/16/19 at 1345, For 1 dose, Phase I Given 02/16/2019 1:05 PM CDT 1,000 mg Lactated Ringer's (LR) infusion 30 mL/hr, intravenous, Continuous, Starting on Sat02/16/19 at 0915, Pre-Op, Switch to Normal Saline for patients on Dialysis New Bag 02/16/2019 11:24 AM CDT New Bag 02/16/2019 8:36 AM CDT 30 mL/hr 30 mL/hr oxymetazoline (AFRIN) 0.05 % nasal spray As needed, Starting on Sat02/16/19 at 1122, Intra-Op Given 02/16/2019 11:22 AM CDT 3 sprays Surgical Site documented in this encounter Discontinued Medications Medication Sig Discontinue Reason Start Date End Da te tamsulosin (FLOMAX) 0.4 mg capsule,extended release 24hr TAKE ONE CAPSULE BY MOUTH EVERY DAY Error 01/28/2017 02/06/2019 HYDROcodone-acetaminophe n (NORCO) 10-325 mg per tabletIndications:Pain Take 1 tablet by mouth every 6 (six) hours as needed for pain. Therapy completed 04/21/2018 02/06/2019 omeprazole (PriLOSEC) 20 mg capsule Take 20 mg by mouth daily. Error 02/06/2019 potassium 99 mg tablet Take by mouth. Error 9 documented as of this encounter Historical Medications * This list may reflect changes made after this encounter. glucosamine-chond roit-vit C-Mn capsuleIndication s:supplement Take 1 capsule by mouth every morning [address] (NexIUM) 20 mg capsuleIndication s:Treatment of Non-Bleeding Gastric Disorder Take 20 mg by mouth daily before breakfast 1 tamsulosin (FLOMAX) 0.4 mg extended release capsuleIndication s:benign prostatic hyperplasia with lower urinary tract sx Take 0.4 mg by mouth every morning 2 added in this encounter Active and Recently Administered Medications Times are shown in CDT. Scheduled Medication Order 02/14/2019 02/15/2019 02/16/2019 acetaminophen (TYLENOL) 32 mg/mL oral solution 1,000 mg (COMPLETED) 1,000 mg, oral, Once, On Sat02/16/19 at 1345, For 1 dose, Phase I 1305 (Given - Provid er: Eloise Snider RN) scopolamine patch 72 hour 1 patch 1 patch, transdermal, Administer over 72 Hours, Once, On Sat02/16/19 at 0915, For 1 dose, Pre-Op, Apply to patients with a history of PONV, Motion Sickness, Beach Chair position Shoulder surgeries, and for Dr. Holloway's Patients. Do not apply to patients with Glaucoma or BPH, Indications: Prevention of Post-Operative Nausea and Vomiting 0915 (Due) sodium chloride 0.9% flush 0.5-20 mL 0.5-20 mL, intra-catheter, Every 8 hours scheduled, First dose on Sat02/16/19 at 0915, Pre-Op, Flush volume based on line type and size. 0915 (Due) Continuous Medication Order 02/14/2019 02/15/2019 02/16/2019 Lactated Ringer's (LR) infusion (CANCELED) 30 mL/hr, intravenous, Continuous, Starting on Sat02/16/19 at 0915, Pre-Op, Switch to Normal Saline for patients on Dialysis 0836 (New Bag - Prov ider: Rosalba Momin, GAY)1124 (New Bag - Provider: Manpreet Brewster CRNA)1149 (Anesthesia Volume Adjustment - Provider: Che Zepeda CRNA) Lactated Ringer's (LR) infusion 125 mL/hr, intravenous, Continuous, Starting on Sat02/16/19 at 1245, Phase I 1325 (Stopped - Prov ider: Eloise Snider RN) PRN Medication Order 02/14/2019 02/15/2019 02/16/2019 acetaminophen (TYLENOL) tablet 500 mg 500 mg, oral, As needed, other, Use as supplement to 1st and 2nd line pain meds., Starting on Sat02/16/19 at 1207, For 2 doses, Phase I, When able to tolerate PO after consulting anesthesiologist. Do not administer to patients receiving oral pain meds containing Acetaminophen., Indications: Pain diphenhydrAMINE (BENADRYL) injection 12.5 mg 12.5 mg, intravenous, Every 5 min PRN, itching, other, May give 25 mg IV for treatment of Nausea, Starting on Sat02/16/19 at 1207, For 4 doses, Phase I, Max cumulative dose 50 mg., Indications: Itching and/or nausea fentaNYL (SUBLIMAZE) preservative free injection 25 mcg 25 mcg, intravenous, Every 5 min PRN, 1st line for pain, uncontrolled pain on PACU admission. Use Fentanyl for outpatients; no not exceed 100 mics., Starting on Sat02/16/19 at 1207, Phase I, Then proceed to PACU 1st line analgesic., Indications: Pain hydrALAZINE (APRESOLINE) injection 5 mg 5 mg, intravenous, Administer over 2 Minutes, Every 5 min PRN, high blood pressure, Starting on Sat02/16/19 at 1207, Phase I, Max cumulative dose 20 mg. Dose if systolic BP greater than 180 AND heart rate less than 70., Indications: hypertension HYDROmorphone (DILAUDID) injection 0.2 mg 0.2 mg, intravenous, Administer over 2 Minutes, Every 5 min PRN, 2nd line for pain, Use as 1st line pain med for patients being admitted. Use as second line for pain uncontrolled after Fentanyl after consulting Anesthesiologist, Starting on Sat02/16/19 at 1207, For 10 doses, Phase I, Notify Anesthesiologist if total PACU dose reaches 2 mg and pain score 5/10 or more., Indications: Pain labetalol (NORMODYNE,TRANDATE) injection 5 mg 5 mg, intravenous, at 30 mL/hr, Administer over 2 Minutes, Every 5 min PRN, high blood pressure, Starting on Sat02/16/19 at 1207, Phase I, Max cumulative dose 20 mg. Dose if systolic blood pressure greater than 180 AND HR greater than 70. meperidine (DEMEROL) preservative free injection 12.5 mg 12.5 mg, intravenous, Every 10 min PRN, shivering, Starting on Sat02/16/19 at 1207, For 2 doses, Phase I, Max cumulative dose 25 mg., Indications: Shivering ondansetron (ZOFRAN) injection 4 mg 4 mg, intravenous, Administer over 2 Minutes, Once as needed, nausea, vomiting, Starting on Sat02/16/19 at 1207, For 1 dose, Phase I, Proceed to prochlorperazine if ondansetron has been given within the last 6 hours. oxymetazoline (AFRIN) 0.05 % nasal spray (CANCELED) As needed, Starting on Sat02/16/19 at 1122, Intra-Op 1122 (Given - Provid er: Nathanael Valdez MD - Comment: applied to cottonoids topically) prochlorperazine (COMPAZINE) injection 5 mg 5 mg, intravenous, Every 10 min PRN, nausea, vomiting, [facility], Starting on Sat02/16/19 at 1207, For 2 doses, Phase I, If nausea/vomiting not relieved by ondansetron within 30 minutes or if ondansetron has been given within the last 6 hours. sodium chloride 0.9% flush 0.5-20 mL 0.5-20 mL, intra-catheter, As needed, line care, Starting on Sat02/16/19 at 0836, Pre-Op, Flush volume based on line type and size. Flush before and after each use. documented in this encounter Orders Medications Ordered That Quinn ht Not Have Been Administered Count Last Ordered Date First Ordered Date acetaminophen (TYLENOL) tablet 500 mg 1 diphenhydrAMINE (BENADRYL) i njection 12.5 mg 1 02/16/2019 fentaNYL (SUBLIMAZE) preserv ative free injection 25 mcg 1 02/16/2019 hydrALAZINE (APRESOLINE) injection 5 mg 1 0 02/16/2019 HYDROmorphone (DILAUDID) injection 0.2 mg 1 02/16/2019 labetalol (NORMODYNE,TRANDAT E) injection 5 mg 1 02/16/2019 Lactated Ringer's (LR) infusion 1 9 meperidine (DEMEROL) preserv ative free injection 12.5 mg 1 02/16/2019 ondansetron (ZOFRAN) injection 4 mg 1 02/16 prochlorperazine (COMPAZINE) injection 5 mg 1 02/16/2019 scopolamine patch 72 hour 1 patch 1 019 sodium chloride 0.9% flush 0.5-20 mL 2 02/01 Diet Count Last Ordered Date First Orde red Date ADULT DISCHARGE DIET 1 02/16/2019 Nursing Count Last Ordered Date First Orde red Date DISCHARGE ACTIVITY 1 02/16/2019 DISCHARGE CALL PROVIDER 3 02/16/2019 documented in this encounter Care Teams Pearl Restorer Relationship Specialty [place] [id number] [facility] [address] [place] [address] Rheumatology 02/21/17 Lashay Downs, RN Registered Nurse Pain Management 06/17/17 Duke Do, RN Registered Nurse 09/09/17 Ngozi Petty MD Radiation Oncologist Radiation Oncology 02/05/19 Jose Roberto Marx MD Referring Physician Otolaryngology 02/05/19 documented as of this encounter
--- OUTSIDE RECORDS SUMMARY | 2024-06-14 16:50 | XMS_ITS | Encounter Summary ---
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 on file Not on natalie e documented as of this encounter Plan of Treatment Not on file documented as of this encounter Visit Diagnoses Not on filedocumented in this encounter Care Teams Travel Assistant Relationship Specialty [place] [id number] [facility] [address] [place] [address] Rheumatology 02/21/17 Lashay Downs, RN Registered Nurse Pain Management 06/17/17 Duke Do, RN Registered Nurse 09/09/17 Ngozi Petty MD Radiation Oncologist Radiation Oncology 02/05/19 Jose Roberto Marx MD Referring Physician Otolaryngology 02/05/19 documented as of this encounter
--- OUTSIDE RECORDS SUMMARY | 2024-06-14 16:50 | XMS_ITS | Encounter Summary ---
Author Organization [facility] Address [address] [place] [address] Phone Care Team Providers Care Stock Preparer Name Role Phone Criss Blanco MD Unavailable Lashay Downs RN Unavailable Unavailab Duke Goodwin RN Unavailable UnavailNgozi Husain MD Unavailable [phone] Jose Roberto Marx MD Unavailable [phone] Reason for Visit * Reason Comments Post-op Encounter Details Date Type Department Care Team (Late st Contact Info) Description 06/23/2019 11:15 AM MATERIAL CONTROL SUPERVISOR Office Visit 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 Post-op INTERVAL HISTORY: Samuel Sanchez is a 73 y.o. 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 He is 1 month postop from flexible laryngoscopy with KTP laser photo ablation of carcinoma in situ. He is doing well and has no new issues. He denies dysphagia, odynophagia, referred otalgia, or hemoptysis. OUTCOMES: GFI: 1 VHI-10: 0 VCI: 0 RSI: 6 EXAM: Physical Exam Constitutional: General: He is not in acute distress. Appearance: Normal appearance. HENT: Head: Normocephalic. Right Ear: External ear normal. Left Ear: External ear normal. Nose: Nose normal. Mouth/Throat: Lips: [place]. No lesions. Neck: Comments: His voice is strong and normal for him. His pitch is expected for his age and gender. Pulmonary: Effort: Pulmonary effort is normal. Neurological: Mental Status: He is alert and oriented to person, place, and time. Cranial Nerves: No cranial nerve deficit. Psychiatric: Mood and Affect: Mood and affect normal. Speech: Speech normal. Behavior: Behavior normal. Behavior is cooperative. Judgment: Judgment normal. LARYNGEAL EXAM: Flexible videostroboscopy was performed today by the speech-language pathologist using scope #F2 inorder to evaluate the laryngeal biomechanics and vocal fold oscillatory properties that cannot otherwise be appreciated on flexible fiberoptic or indirect mirror examination. The bilateral nasal cavities were anesthetized with 4% topical lidocaine and oxymetazoline, and the distal chip transnasal laryngoscope was introduced through the right nasal cavity and advanced into the oropharynx. The baseof tongue, vallecula, supraglottal, and hypopharyngeal structures are anatomically normal in appearance. The mobility demonstrates symmetric abduction and adduction of the bilateral true vocal folds.No glottic lesions are seen. During phonation, glottic closure is complete. The mucosal wave is intact and chasing. There is mild supraglottic hyperfunction present on exam. The scope was then removed from the patient's nose, and he tolerated the procedure well. ASSESSMENT/PLAN: Squamous cell carcinoma of larynx (CMS/HCC) His larynx looks clean after KTP laser treatment. 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 I would like to continue routine observation every 8 weeks. No orders of the defined types were placed in this encounter. DISPOSITION: Return in about 8 weeks (around 08/18/2019) for next scheduled voice follow up with video. Nathanael Valdez MD, FACS Frame Bender [facility] Division of Laryngology Department of Otolaryngology--Head & Neck Surgery Portions of this note were dictated using M*Modal Fluency Direct. Collaborating Supervising Physician variances may occur. RIAL CONTROL SUPERVISOR documented in this encounter Miscellaneous Notes * Assessment & Plan Note - Nathanael Valdez MD - 06/23/2019 11:46 AM MATERIAL CONTROL SUPERVISOR Associated Problem(s): 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) His larynx looks clean after KTP laser treatment. 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 I would like to continue routine observation every 8 weeks. RIAL CONTROL SUPERVISOR documented in this encounter Plan of Treatment Not on file 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)- Primary Malignant neoplasm of larynx, unspecified site documented in this encounter Care Teams Stock Preparer Relationship Specialty [place] [address] [facility] [address] [place] [address] Rheumatology 02/21/17 Lashay Downs, RN Registered Nurse Pain Management 06/17/17 Duke Do, RN Registered Nurse 09/09/17 Ngozi Petty MD Radiation Oncologist Radiation Oncology 02/05/19 Jose Roberto Marx MD Referring Physician Otolaryngology 02/05/19 documented as of this encounter
--- OUTSIDE RECORDS SUMMARY | 2024-06-14 16:50 | XMS_ITS | Encounter Summary ---
Author Organization [facility] Address [address] [place] [address] Phone Care Team Providers Care Audit Reviewer Name Role Phone Criss Blanco MD Unavailable Lashay Downs RN Unavailable Unavailab Duke Goodwin RN Unavailable UnavailNgozi Husain MD Unavailable [phone] Jose Roberto Marx MD Unavailable [phone] Reason for Visit * Reason Onset Date Comments Test Results 03/30/2019 Encounter Details Date Type Department Care Team (Late st Contact Info) Description 03/30/2019 Telephone [facility] Otolaryngology [facility] [address] [phone] Marisol Madrid RN Test Results Social History Tobacco Use Types Packs/Day [...] on file Legal 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 Any lesions will be treated with further laser treatment. Patient due to see me in-office next week. * Telephone Encounter - Marisol Madrid LPN - 03/30/2019 10:[address] Valdez, Patient is calling looking for most recent pathology results. He would like to know next step. Please review and advise. documented in this encounter Plan of Treatment Not on file documented as of this encounter Visit Diagnoses Not on filedocumented in this encounter Care Teams Audit Reviewer Relationship Specialty [place] [id number] [address] Rheumatology 02/21/17 Lashay Downs, GAY Registered Nurse Pain Management 06/17/17 Duke Do, RN Registered Nurse 09/09/17 Ngozi Petty MD Radiation Oncologist Radiation Oncology 02/05/19 Jose Roberto Marx MD Referring Physician Otolaryngology 02/05/19 documented as of this encounter
--- OUTSIDE RECORDS SUMMARY | 2024-06-14 16:50 | XMS_ITS | Encounter Summary ---
Author Organization [facility] Healthcare Address [address] [place] [address] Care Team Providers Care Pediatrics Teacher Name Role Phone Criss Blanco MD Unavailable Lashay Downs RN Unavailable Unavailab Duke Goodwin RN Unavailable UnavailNgozi Husain MD Unavailable [phone] Jose Roberto Marx MD Unavailable [phone] Encounter Details Date Type Department Care Team (Late st Contact Info) Description 03/09/2019 8:30 AM CDT - 03/09/2019 9:45 AM CDT Surgery [facility] Operating Room [address] [place] [address] Nathanael Valdez MD [address] [place] [address] Suspension microlaryngoscopy with KTP laser treatment Surgery Details Date/Time Status Location OR Service Patient Class Case Class Case Type Trauma Case? 03/09/2019 8:30 AM Posted [facility] OPERATING ROOM ASC1 1 Otolaryngology Outpatient Elective Panel 1 Procedure LRB Anes Op Region Wound Class Comments Suspension microlaryngoscopy with KTP laser treatment Right General Throat Class I I - Clean Contaminated LASER KTP Right Choice Class II - Lul an Contaminated Surgeon Surgeon Role Service Panel Nathanael Valdez MD Primary Otolaryngology 1 eHnri Leal MD Resident - Assisting Otolary ngology 1 Special Needs KTP laser ordered with Hortensia @ [facility] 02/19/19 documented in this encounter Social History Tobacco [...] file 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 Gender Identity Not on file Sexual Orientation Not on file 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 on file Not on natalie e documented as of this encounter Last Filed Vital Signs Vital Sign Reading Time Taken Comments Blood Pressure 131/80 03/09/2019 7:04 AM CDT Pulse 61 03/09/2019 7:04 AM CDT Temperature 36 ??C (96.8 ??F) 03/09/2019 9:10 AM CDT Respiratory Rate 18 03/09/2019 7:04 AM CDT Oxygen Saturation 98% 03/09/2019 7:04 AM CDT Inhaled Oxygen Concentration - - Weight 99.8 kg (220 lb) 03/09/2019 7:04 AM CDT Height 185.4 cm (6' 1 ) 03/09/2019 7:04 AM CDT Body Mass Index 29.03 03/09/2019 7:04 AM CDT documented in this encounter Medications at Time of Discharge HYDROcodone-aceta minophen (HYCET) solution 7.5-325 mg/15 mLIndications:Frida n Take 15 mL by mouth every 6 (six) hours as needed for pain for up to 3 days 118 mL 03/09/2019 9 biotin 10,000 mcg capsuleIndication s:supplement Take 1 [...] mg by mouth once a week 9 lrojqspirmkw-Pl-b foreign-minerals 18-0.4 mg tabletIndications :Mineral Deficiency Prevention,Vitami [...] for up to 3 days 118 mL 03/09/2019 03/12/2019 documented in this encounter Discharge Disposition Disposition Code Departure Means Destination Discharge to home or self care documented in this encounter H&P Notes * Nathanael Valdez MD - 03/09/2019 8:33 AM CDT I have reviewed the H&P, examined the patient, and endorse the findings as written. Plan of Care : Based on the above findings, I consider Pasquale Sanchez to be an acceptable risk for : Procedure(s): Suspension microlaryngoscopy with KTP laser treatment LASER KTP Source Note - Saman Springer MD - 02/27/2019 10:16 AM CDT Images from the original note were not included. [facility] for Preoperative Assessment and Planning Preoperative Evaluation Record Telephone Preoperative Evaluation ([facility]) - TELEPHONE ONLY, NO PHYSICAL EXAM Date: 02/27/19 Anesthesia Evaluation Pasquale Sanchez is a 73 y.o. 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 male who is being evaluated prior to undergoing suspension microlaryngoscopy w/KTP laser treatment for laryngeal SCCa . Past Medical History Information obtained from: patient. Neurological Pertinent negatives: seizures; neuromuscular disease; CVA/stroke; TIA; CEA; ICA stenosis; dementia/mild cognitive impairment and carotid artery stent Cardiovascular Pertinent negatives: hypertension ; CAD ; CA ; CABG ; valvular heart disease; valve [...] complete. Additional comments: Pasquale Sanchez is a 73 y.o. male [...] of multiple sites (CMS/HCC) ??? Headache ??? 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 Discogenic low back [...] OTHER MEDICAL hemorroids; [facility]: [facility] [place] ??? HX OTHER MEDICAL bladder infection ??? HX OTHER MEDICAL kidney stone ??? Malignant neoplasm of prostate (CMS/HCC) 1998 prostate Past Surgical History: Procedure Laterality Date ??? BICEPS TENODESIS Left s ??? EAR SURGERY Left s repair perforated eardrum ??? LARYNGOSCOPY Right 01/09/2019 Direct laryngoscopy with biopsy ??? LARYNGOSCOPY Right 02/16/2019 Suspension microlaryngoscopy with KTP laser photoablation Right vocal fold lesion ??? LITHOTRIPSY - 2018 5 or 6 times ??? [...] -- -- Historical Provider, Notes: Not taking wlrbdstyqxo-zmiqebvzb-hsa C-Mn capsule -- -- Historical Provider, methotrexate 2.5 mg tablet -- -- Historical Provider, Notes: Not taking hhagyiqgngay-Dy-wqdz-minerals 18-0.4 mg tablet -- -- Historical Provider, ranitidine (ZANTAC) 300 mg capsule -- -- Historical Provider, tamsulosin (FLOMAX) 0.4 mg extended release capsule -- -- Historical Provider, No current facility-administered medications for this encounter. Current Outpatient Medications: ??? biotin 10,000 mcg capsule ??? esomeprazole DR (NexIUM) 20 mg capsule ??? folic acid (FOLVITE) 1 mg tablet ??? mqfjptanmjl-yntxeyihw-inz C-Mn capsule ??? fzqzfaurvjko-Fv-unxi-minerals 18-0.4 mg tablet ??? ranitidine (ZANTAC) 300 [...] Medication protocol when under care of a CLINICAL NURSE EDUCATOR Planned anesthesia: General Informed Consent: Anesthesia plan [...] All questions answered. 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 Suspension microlaryngoscopy with KTP laser photoablation of right vocal fold lesion OPERATIVE FINDINGS: No abnormal tissue, although epithelium on right vocal fold still healing. Anterior margin re-resected INDICATIONS FOR PROCEDURE: Pasquale Sanchez is a 73 y.o. 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 DESCRIPTION OF PROCEDURE PERFORMED: The patient was brought back to the operating room and laid supine on the table. After the appropriate timeouts were performed, general anesthesia was induced, and the patient was easily intubated using a 5.5 laser-safe endotracheal tube taped off to the [...] increased accuracy and precision. Wet towels were then draped on the patient's face. A 0.6 mm KTP laser fiber set at 30W, 15 ms pulse-width, and 2 pps was then used to photoablate the lesion anteriorly where the epithelium had been healing and extending this slightly toward the commissure. It was initially in a non-contact fashion before switching to contact mode to treat the deeper tissue. The suction was then to help lift the lesion off the underlying tissue, and the deeper margin was then treated. Using a curved alligator and micro-scissors, the anterior epithelium was then sampled as a final margin. The laryngoscope was then taken out of suspension and removed from the patient's mouth, along with the dental guards. The patient's dentition appeared intact at the end of the case. The patient was then turned over to anesthesia for recovery. EBL: Minimal IV Fluids: Per anesthesia Specimens: Anterior right vocal fold Sponge/Instrument/Needle Count: Correct at end of case Condition: Stable to the PACU Attestation: Nathanael Mcneal MD, was present and participated in the entirety of the procedure * Pre-Procedure Instructions - Riya Sung NP - 02/27/2019 10:13 AM CDT Center for Preoperative Assessment and Planning CPAP Clinic Location: [facility] The night before your surgery: * [...] Medication Instructions ??? biotin 10,000 mcg capsule Don't take on day of surgery ??? esomeprazole DR (NexIUM) 20 mg capsule Take morning of surgery ??? folic acid (FOLVITE) 1 mg tablet Don't take on day of surgery ??? iflijccyrvn-fdzqhzdfr-ssu C-Mn capsule Don't take on day of surgery ??? nstibuzstfxk-Ly-oyuz-minerals 18-0.4 mg tablet Stop taking 1 week prior to surgery ??? ranitidine (ZANTAC) 300 mg capsule Take morning of surgery ??? tamsulosin (FLOMAX) 0.4 mg extended release capsule Don't take on day of surgery General Instructions For Medications: ?? Stop all of these medications 5 days prior to your surgery: excedrin, motrin, advil, ibuprofen, aleve, naproxen, celebrex, celecoxib, meloxicam ?? Stop all of these medications 7-14 days prior to your surgery: Vitamin E, Fish Oil (Lovaza, Sunflower 3), Herbal medicines, Diet Pills ?? If [...] before surgery * Perioperative Nursing Note - Alona Haskins RN - 02/26/2019 4:13 PM CDT [facility] Preoperative Assessment and Planning Perioperative Nursing Note Telephone Preoperative Evaluation ([facility]) - TELEPHONE ONLY, NO PHYSICAL EXAM Date: 02/26/19 Vitals: 02/26/19 1610 Weight: 102.1 kg (225 lb) Height: 185.4 [...] Outpatient Medications Marked as Taking for the 03/09/19 encounter (Hospital Encounter) with Nathanael Valdez MD Medication Sig Dispense Refill ??? biotin 10,000 mcg capsule Take 1 capsule by mouth every morning ??? esomeprazole DR (NexIUM) 20 mg capsule Take 20 mg by mouth daily before breakfast ??? folic acid (FOLVITE) 1 mg tablet Take 1 mg by mouth every morning ??? ezngnclzrhf-laodsrihk-qsb C-Mn capsule Take 1 capsule by mouth every morning ??? xqmpfawnmxsr-Hh-axec-minerals 18-0.4 mg tablet Take 1 tablet by mouth every morning ??? ranitidine (ZANTAC) 300 mg capsule Take 300 mg by mouth nightly ??? tamsulosin (FLOMAX) 0.4 mg extended release capsule Take 0.4 mg by mouth every morning Implants No active implants to display in this view. 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 Surgery location [...] 2 days of your surgery, please call [phone] and ask for your surgeon's office documented in this encounter Plan of Treatment Not on file documented as of this encounter Procedures Procedure Name Priority Date/Time Associated Diagnosis Comments SURGICAL PATHOLOGY Routine 03/09/2019 9: 46 AM CDT Squamous cell carcinoma of larynx (CMS/HCC) LASER KTP 03/09/2019 9:11 AM CDT Squamous cell carcinoma of larynx (CMS/HCC) Special Needs KTP laser ordered with Hortensia @ [facility] 02/19/19 MICROLARYNGOSCOPY 03/09/2019 9:1 1 AM CDT Squamous cell carcinoma of larynx (CMS/HCC) Special Needs KTP laser ordered with Hortensia @ [facility] 02/19/19 documented in this encounter Results * Surgical pathology (03/09/2019 9:46 AM CDT) Tissue (Vocal cord) 03/09/2019 9:46 AM CDT Narrative PATHOLOGY [facility] - 03/10/2019 5:55 PM CDT EPIC results best viewed via link to PDF [facility] [place] [address] SURGICAL PATHOLOGY REPORT FINAL Patient Name: ?? PASQUALE SANCHEZ Gender: ??M : ??1945 (Age: 73) Address: ??[address], [place] ??[address] Hospital #: ??[id number] Taken:03/09/2019 Received:03/09/2019 Reported: 03/10/2019 Patient Type: WC SDS Client ?[facility] Service: Surgery Location: [facility] Physician(s): ??Nathanael Valdez M.D. Diagnosis: Larynx, right anterior margin, biopsy: ? - Superficial fragments of squamous epithelium with carcinoma in-situ, see comment cad103/10/2019 07:46 By this signature, I attest that the above diagnosis is based upon my personal examination of the slides(and/or other material indicated in the diagnosis). Juany Ray MD Report Electronically Reviewed and Signed Out By ??Juany Ray MD 03/10/2019 17:55:13 Microscopic Description and Comment: The biopsy is superficial, and invasion cannot be ruled out. Microscopic examination substantiates the above cited diagnosis. Microscopic slide review and interpretation for this case was performed at [facility], Department of Surgical Pathology, [address] [facility] [address], [id number], ??[facility], [place] ??[address] ?? CLIA # [id number] Sarah Lang MD, PhD History: The patient is a 73-year-old man with history of squamous cell carcinoma the larynx. ??Operative procedure: Microlaryngoscopy with KTP laser treatment. Specimen(s) Received: A: Right anterior margin Gross Description: Received in formalin labeled with the patient's name and right anterior margin are several wispy cores and fragments of pale-massey tissue measuring 0.6 x 0.2 by less than 0.1 cm in aggregate. ??Labeled A1. ??Jar 0. /03/09/2019 15:15 Iris Cobos, MS, PA (A By this signature, I attest that the above diagnosis is based upon my personal examination of the slides(and/or other material). The performance characteristics of some immunohistochemical stains, fluorescence in-situ hybridization tests and immunophenotyping by flow cytometry cited in this report (if any) were determined by the Surgical Pathology Department at [facility] as part of an ongoing quality control chemist program and in compliance with federally mandated [...] determined by the Surgical Pathology Department of [facility]. ??It has not been cleared or approved by the U. S. Food and Drug Administration. IMAGES AND SCANNED DOCUMENTS, IF INCLUDED, ONLY VIEWABLE IN PDF VERSION OF REPORT Nathanael Valdez MD LAB PATHOLOGY ORDERABLES Final Result PATHOLOGY [facility] [phone] documented in this encounter Visit Diagnoses Diagnosis [...] MAR Action Action Date Dose Rate Site HYDROcodone-acetaminophen (HYCET) 0.5-21.7 mg/mL oral solution 15 mL 15 mL, feeding tube, Once, On Sat03/09/19 at 1130, For 1 dose, Phase I, 15 mL = Hydrocodone 7.5 mg - Acetaminophen 325 mg 10 mL = Hydrocodone 5 mg - Acetaminophen 216.7 mg 5 mL = Hydrocodone 2.5 mg - Acetaminophen 108.3 mg , Indications: PainIndications:Pain Given 03/09/2019 10:55 AM CDT 15 mL Lactated Ringer's (LR) infusion 30 mL/hr, intravenous, Continuous, Starting on 10/7/19 at 0730, Pre-Op, Switch to Normal Saline for patients on Dialysis New Bag 03/09/2019 7:06 AM CDT 30 mL/hr 30 mL/hr documented in this encounter Active and Recently Administered Medications Times are shown in CDT. Scheduled Medication Order 03/07/2019 03/08/2019 03/09/2019 HYDROcodone-acetaminophen (HYCET) 0.5-21.7 mg/mL oral solution 15 mL (COMPLETED) 15 mL, feeding tube, Once, On Sat03/09/19 at 1130, For 1 dose, Phase I, 15 mL = Hydrocodone 7.5 mg - Acetaminophen 325 mg 10 mL = Hydrocodone 5 mg - Acetaminophen 216.7 mg 5 mL = Hydrocodone 2.5 mg - Acetaminophen 108.3 mg , Indications: Pain 1055 (Given - Provid er: Margareth Flores RN) scopolamine patch 72 hour 1 patch 1 patch, transdermal, Administer over 72 Hours, Once, On Sat03/09/19 at 0730, For 1 dose, Pre-Op, Apply to patients with a history of PONV, Motion Sickness, Beach Chair position Shoulder surgeries, and for Dr. Holloway's Patients. Do not apply to patients with Glaucoma or BPH, Indications: Prevention of Post-Operative Nausea and Vomiting 0730 (Due) sodium chloride 0.9% flush 0.5-20 mL 0.5-20 mL, intra-catheter, Every 8 hours scheduled, First dose on Sat03/09/19 at 0730, Pre-Op, Flush volume based on line type and size. 0730 (Due) Continuous Medication Order 03/07/2019 03/08/2019 03/09/2019 Lactated Ringer's (LR) infusion 30 mL/hr, intravenous, Continuous, Starting on Sat03/09/19 at 0730, Pre-Op, Switch to Normal Saline for patients on Dialysis 0706 (New Bag - Prov ider: Dede Nguyen RN)0940 (Anesthesia Volume Adjustment - Provider: Che Zepeda CRNA)0946 (Anesthesia Volume Adjustment - Provider: Che Zepeda CRNA) Lactated Ringer's (LR) infusion 125 mL/hr, intravenous, Continuous, Starting on Sat03/09/19 at 1045, Phase I 1045 (Due) PRN Medication Order 03/07/2019 03/08/2019 03/09/2019 acetaminophen (TYLENOL) tablet 500 mg 500 mg, oral, As needed, other, Use as supplement to 1st and 2nd line pain meds., Starting on Sat03/09/19 at 1006, For 2 doses, Phase I, When able to tolerate PO after consulting anesthesiologist. Do not administer to patients receiving oral pain meds containing Acetaminophen., Indications: Pain diphenhydrAMINE (BENADRYL) injection 12.5 mg 12.5 mg, intravenous, Every 5 min PRN, itching, other, May give 25 mg IV for treatment of Nausea, Starting on Sat03/09/19 at 1006, For 4 doses, Phase I, Max cumulative dose 50 mg., Indications: Itching and/or nausea fentaNYL (SUBLIMAZE) preservative free injection 25 mcg 25 mcg, intravenous, Every 5 min PRN, 1st line for pain, uncontrolled pain on PACU admission. Use Fentanyl for outpatients; no not exceed 100 mics., Starting on Sat03/09/19 at 1006, Phase I, Then proceed to PACU 1st line analgesic., Indications: Pain hydrALAZINE (APRESOLINE) injection 5 mg 5 mg, intravenous, Administer over 2 Minutes, Every 5 min PRN, high blood pressure, Starting on Sat03/09/19 at 1006, Phase I, Max cumulative dose 20 mg. Dose if systolic BP greater than 180 AND heart rate less than 70., Indications: hypertension HYDROcodone-acetaminophen (NORCO) 5-325 mg per tablet 1 tablet 1 tablet, oral, Once as needed, 3rd line for pain, May give TWO doses at the same time for severe pain after consulting anesthesiologist., Starting on Sat03/09/19 at 1006, For 2 doses, Phase I, When able to tolerate PO., Indications: Pain HYDROmorphone (DILAUDID) injection 0.2 mg 0.2 mg, intravenous, Administer over 2 Minutes, Every 5 min PRN, 2nd line for pain, Use as 1st line pain med for patients being admitted. Use as second line for pain uncontrolled after Fentanyl after consulting Anesthesiologist, Starting on Sat03/09/19 at 1006, For 10 doses, Phase I, Notify Anesthesiologist if total PACU dose reaches 2 mg and pain score 5/10 or more., Indications: Pain labetalol (NORMODYNE,TRANDATE) injection 5 mg 5 mg, intravenous, at 30 mL/hr, Administer over 2 Minutes, Every 5 min PRN, high blood pressure, Starting on Sat03/09/19 at 1006, Phase I, Max cumulative dose 20 mg. Dose if systolic blood pressure greater than 180 AND HR greater than 70. meperidine (DEMEROL) preservative free injection 12.5 mg 12.5 mg, intravenous, Every 10 min PRN, shivering, Starting on Sat03/09/19 at 1006, For 2 doses, Phase I, Max cumulative dose 25 mg., Indications: Shivering ondansetron (ZOFRAN) injection 4 mg 4 mg, intravenous, Administer over 2 Minutes, Once as needed, nausea, vomiting, Starting on Sat03/09/19 at 1006, For 1 dose, Phase I, Proceed to prochlorperazine if ondansetron has been given within the last 6 hours. prochlorperazine (COMPAZINE) injection 5 mg 5 mg, intravenous, Every 10 min PRN, nausea, vomiting, [facility], Starting on Sat03/09/19 at 1006, For 2 doses, Phase I, If nausea/vomiting not relieved by ondansetron within 30 minutes or if ondansetron has been given within the last 6 hours. sodium chloride 0.9% flush 0.5-20 mL 0.5-20 mL, intra-catheter, As needed, line care, Starting on Sat03/09/19 at 0654, Pre-Op, Flush volume based on line type and size. Flush before and after each use. documented in this encounter Orders Medications Ordered That Quinn ht Not Have Been Administered Count Last Ordered Date First Ordered Date acetaminophen (TYLENOL) tablet 500 mg 1 12/2018 diphenhydrAMINE (BENADRYL) i njection 12.5 mg 1 03/09/2019 fentaNYL (SUBLIMAZE) preserv ative free injection 25 mcg 1 03/09/2019 hydrALAZINE (APRESOLINE) injection 5 mg 1 1 HYDROcodone-acetaminophen (N ORCO) 5-325 mg per tablet 1 tablet 1 03/09/2019 HYDROmorphone (DILAUDID) injection 0.2 mg 1 03/09/2019 labetalol (NORMODYNE,TRANDAT E) injection 5 mg 1 03/09/2019 Lactated Ringer's (LR) infusion 1 9 meperidine (DEMEROL) preserv ative free injection 12.5 mg 1 03/09/2019 ondansetron (ZOFRAN) injection 4 mg 1 03/09 prochlorperazine (COMPAZINE) injection 5 mg 1 03/09/2019 scopolamine patch 72 hour 1 patch 1 019 sodium chloride 0.9% flush 0.5-20 mL 2 12/2018 Diet Count Last Ordered Date First Orde red Date ADULT DISCHARGE DIET 1 03/09/2019 Nursing Count Last Ordered Date First Orde red Date DISCHARGE ACTIVITY 1 03/09/2019 DISCHARGE CALL PROVIDER 3 03/09/2019 documented in this encounter Care Teams Pediatrics Teacher Relationship Specialty [place] [address] [facility] [address] [address] [place] [address] Rheumatology 02/21/17 Lashay Downs, RN Registered Nurse Pain Management 06/17/17 Duke Do, RN Registered Nurse 09/09/17 Ngozi Petty MD Radiation Oncologist Radiation Oncology 02/05/19 Jose Roberto Marx MD Referring Physician Otolaryngology 02/05/19 documented as of this encounter
--- OUTSIDE RECORDS SUMMARY | 2024-06-14 16:50 | XMS_ITS | Encounter Summary ---
Author Organization [facility] Healthcare Address [address] [place] [address] Care Team Providers Care Coin Collector Name Role Phone Criss Blanco MD Unavailable Lashay Downs RN Unavailable Unavailab Duke Goodwin RN Unavailable UnavailNgozi Husain MD Unavailable [phone] Jose Roberto Marx MD Unavailable [phone] Encounter Details Date Type Department Care Team (Late st Contact Info) Description 07/23/2019 10:59 AM DISPATCH ASSOCIATE Hospital Encounter [facility] OP INTERIM Anjel Caballero MD [facility] [address] [address] Social History Tobacco Use Types Packs/Day Years [...] on file Legal Sex Male 12:56 AM DISPATCH ASSOCIATE Gender Identity Not on file Sexual Orientation Not on file 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 on file Not on natalie e documented as of this encounter Medications at Time of Discharge biotin 5,000 mcg tablet,disintegra tingIndications:h ealth Take 5,000 mcg by mouth every morning [address] (NexIUM) 20 mg capsuleIndication s:Treatment of Non-Bleeding Gastric Disorder Take 20 mg by mouth daily before breakfast 1 hydroxychloroquin e (PLAQUENIL) 200 mg tablet Take 400 mg by mouth daily 0 ranitidine (ZANTAC) 300 mg capsuleIndication s:gastroesophagea l reflux disease Take 300 mg by mouth nightly 0 rOPINIRole (REQUIP) 1 mg tabletIndications :Restless Legs Syndrome Take 1 mg by mouth daily as needed 0 tamsulosin (FLOMAX) 0.4 mg extended release capsuleIndication s:benign prostatic hyperplasia with lower urinary tract sx Take 0.4 mg by mouth every morning 2 documented as of this encounter Plan of Treatment Not on file documented as of this encounter Procedures Procedure Name Priority Date/Time Associated Diagnosis Comments XR ABDOMEN AP 1 VIEW 07/23/2019 11:02 AM DISPATCH ASSOCIATE documented in this encounter Results * XR Abdomen Ap 1 Vw (07/23/2019 11:02 AM DISPATCH ASSOCIATE) Anatomical Region Laterality Modality Body, Abdomen N/A Radiographic Corin ging 07/25/2019 1:16 AM DISPATCH ASSOCIATE Narrative 07/25/2019 1:18 AM DISPATCH ASSOCIATE Patient Name: SAMUEL HUFFMAN ?Ordering Dr: Anjel Caballero MD ?? D.O.B: 1945 ? Exam Date: 02/20/20 ?? 1102 ?? Age: 74 ?Sex: Male ? MR#: [id number] ?? Loc: ? RADIOLOGY REPORT ?? Order #[id number] ?? Radiology ? Abdomen 1 View ? Signed ?? EXAM DESCRIPTION: ??Abdomen 1 View ? REASON FOR STUDY: ??FOLLOW UP. STATES NO SYMPTOMS ? TECHNIQUE: ??Supine radiographic view of the abdomen acquired. ? COMPARISON: ??12/19/2018 ? FINDINGS: ? BOWEL GAS PATTERN: Scattered non-dilated small bowel loops. Nonobstructive ?? pattern. ? SOFT TISSUES: There is redemonstration of punctate calcifications over the ?? bilateral renal shadow, likely reflective of nephrolithiasis-these measure up ?? to 0.3 cm. ??There is a phlebolith projecting over the left lower pelvis. ? There is no calcification seen along the expected course of the ureter on ?? either side. ? BONES: Scattered degenerative changes without acute bony findings. ??Bilateral ?? hip osteoarthritis. ? OTHER: No other significant finding. ? IMPRESSION: ??Redemonstration of punctate calcifications projecting over the ?? renal shadow on both sides these measure up to 0.3 cm. ? THIS IS AN ELECTRONICALLY VERIFIED FINAL REPORT ?? 07/25/2019 1:18 AM - Electronically signed by Scotty Hunt ?? Scotty Hunt ? BG ?? D: ??07/25/2019 1:18 AM ?? T: ? Report ID: [id number] ?? Reading Location: ??[id number] ? REPORT ELECTRONICALLY SIGNED IN OTHER VENDOR SYSTEM ?? Resulting Agency Comment O Procedure Note Scotty Hunt MD - 07/25/2019 Patient Name: SAMUEL HUFFMANOrdering Dr: Anjel Caballero MD D.O.B: 1945 Exam Date: 07/23/19 1102 Age: 74 Sex: Male MR#: [id number] Loc: RADIOLOGY REPORT Order #[id number] Radiology Abdomen 1 View Signed EXAM DESCRIPTION: Abdomen 1 View REASON FOR STUDY: FOLLOW UP. STATES NO SYMPTOMS TECHNIQUE: Supine radiographic view of the abdomen acquired. COMPARISON: 12/19/2018 FINDINGS: BOWEL GAS PATTERN: Scattered non-dilated small bowel loops.Nonobstructive pattern. SOFT TISSUES: There is redemonstration of punctate calcifications overthe bilateral renal shadow, likely reflective of nephrolithiasis-thesemeasure up to 0.3 cm. There is a phlebolith projecting over the left lower pelvis. There is no calcification seen along the expected course of the ureter on either side. BONES: Scattered degenerative changes without acute bony findings.Bilateral hip osteoarthritis. OTHER: No other significant finding. IMPRESSION: Redemonstration of punctate calcifications projecting overthe renal shadow on both sides these measure up to 0.3 cm. THIS IS AN ELECTRONICALLY VERIFIED FINAL REPORT 07/25/2019 1:18 AM - Electronically signed by Scotty CALVO T: Report ID: [id number] Reading Location: [id number] REPORT ELECTRONICALLY SIGNED IN OTHER VENDOR SYSTEM us Anjel Caballero MD IMG XR PROCEDURES Mariaa l Result documented in this encounter Visit Diagnoses Not on filedocumented in this encounter Care Teams Coin Collector Relationship Specialty [place] [address] [facility] [address] [place] [address] Rheumatology 02/21/17 Lashay Downs, RN Registered Nurse Pain Management 06/17/17 Duke Do, RN Registered Nurse 09/09/17 Ngozi Petty MD Radiation Oncologist Radiation Oncology 02/05/19 Jose Roberto Marx MD Referring Physician Otolaryngology 02/05/19 documented as of this encounter
--- OUTSIDE RECORDS SUMMARY | 2024-06-14 16:50 | XMS_ITS | Encounter Summary ---
Author Organization [facility] Address [address] [place] [address] Phone Care Team Providers Care Estate Agent Name Role Phone Criss Blanco MD Unavailable Lashay Downs RN Unavailable Unavailab Duke Goodwin RN Unavailable UnavailNgozi Husain MD Unavailable Jose Roberto Marx MD Unavailable [phone] Encounter Details Date Type Department Care Team (Late st Contact Info) Description 08/14/2019 Orders Only [facility] Otolaryngology [address] [facility] [address] [facility] [address] Nathanael Valdez MD [address] [place] [address] Squamous cell carcinoma of larynx (CMS/HCC) (Primary [...] file 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
--- OUTSIDE RECORDS SUMMARY | 2024-06-14 16:50 | XMS_ITS | Encounter Summary ---
Author Organization [facility] Healthcare Address [address] [place] [address] Care Team Providers Care Manufacturing Finance Manager Name Role Phone Criss Blanco MD Unavailable Lashay Downs RN Unavailable Unavailab Duke Goodwin RN Unavailable UnavailNgozi Husain MD Unavailable Jose Roberto Marx MD Unavailable [phone] Encounter Details Date Type Department Care Team (Late st Contact Info) Description 05/25/2019 2:20 PM SUPERVISOR GROWER - 05/25/2019 2:45 PM SUPERVISOR GROWER Surgery [facility] Operating Room [address] [place] [address] Nathanael Valdez MD [address] [place] [address] Flexible Laryngoscopy with KTP laser photoablation Surgery Details Date/Time Status Location OR Service Patient Class Case Class Case Type Trauma Case? 05/25/2019 2:20 PM Posted [facility] OPERATING ROOM OR Otolaryngology Outpatient Elective Panel 1 Procedure LRB Anes Op Region Wound Class Comments Flexible Laryngoscopy with KTP laser photoablation Right Local Class II - Clean Contaminated Surgeon Surgeon Role Service Panel Neto Morley MD Resident - Assisting O tolaryngology 1 Nathanael Valdez MD Primary Otolaryngology 1 [...] file Legal Sex Male 12:56 AM SUPERVISOR GROWER Gender Identity Not on file Sexual Orientation Not on file 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 on file Not on natalie e documented as of this encounter Last Filed Vital Signs Vital Sign Reading Time Taken Comments Blood Pressure 149/89 05/25/2019 2:39 PM SUPERVISOR GROWER Pulse 60 05/25/2019 2:39 PM SUPERVISOR GROWER Temperature 36.1 ??C (97 ??F) 05/25/2019 2:39 PM SUPERVISOR GROWER Respiratory Rate 18 05/25/2019 2:32 PM SUPERVISOR GROWER Oxygen Saturation 99% 05/25/2019 2:39 PM SUPERVISOR GROWER Inhaled Oxygen Concentration - - Weight - [...] 1 capsule by mouth every morning 9 hydroxychloroquin e (PLAQUENIL) 200 mg tablet Take 200 mg by mouth 3 03/16/2019 0 methotrexate 2.5 mg tabletIndications :Rheumatoid Arthritis,8 tabs weekly Take 20 mg by mouth once a week 9 flqsvbwhusqy-Ol-d foreign-minerals 18-0.4 mg tabletIndications :Mineral Deficiency Prevention,Vitami n Deficiency Prevention Take 1 tablet by mouth every morning 0 ranitidine (ZANTAC) 300 mg capsuleIndication s:gastroesophagea l reflux disease Take 300 mg by mouth nightly 0 rOPINIRole (REQUIP) 1 mg tablet Take 1 mg by mouth as needed (restless legs) 0 tamsulosin (FLOMAX) 0.4 mg extended release capsuleIndication s:benign prostatic hyperplasia with lower urinary tract sx Take 0.4 mg by mouth every morning 2 documented as of this encounter Discharge Disposition Disposition Code Departure Means Destination Discharge to home or self care documented in this encounter H&P Notes * Nathanael Valdez MD - 05/25/2019 2:01 PM CST I have reviewed the H&P, examined the patient, and endorse the findings as written. Plan of Care : Based on the above findings, I consider Samuel Sanchez to be an acceptable risk for : Procedure(s): Flexible Laryngoscopy with KTP laser photoablation RVISOR GROWER Source Note - Nathanael Valdez MD - 05/12/2019 11:00 AM SUPERVISOR GROWER PATIENT NAME: Samuel Sanchez : 1945 DOS: 05/12/2019 REFERRING PHYSICIAN: Self Referral CHIEF COMPLAINT: No chief complaint on file. INTERVAL HISTORY: Samuel Sanchez is a 73 y.o. 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 He is doing well and has no new issues. He denies dysphagia, odynophagia, referred otalgia, or hemoptysis. OUTCOMES: GFI: 4 VHI-10: 0 VCI: 0 RSI: 9 REVIEW [...] Not enlarged, swollen or pale. Mouth/Throat: Lips: [place]. No lesions. Mouth: Mucous membranes are moist. [...] tracheal deviation. Comments: The patient's voice sounds slightly raspy. The pitch is expected for his age [...] are anatomically normal in appearance. 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 The mobility demonstrates symmetric abduction and adduction of the bilateral true vocal folds. During phonation, glottic closure is complete. The mucosal wave is intact and symmetric. There is minimal supraglottic hyperfunction present on exam. The scope was then removed from the patient's nose, and he tolerated the procedure well. 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 No orders of the defined types were placed in this encounter. DISPOSITION: Return for next scheduled follow-up after procedure. Nathanael Valdez MD, FACS [facility] Division of Laryngology Department of Otolaryngology--Head & Neck Surgery Portions of this note were dictated using M*Modal Fluency Direct. Reports Developer variances may occur. RVISOR GROWER documented in this encounter Miscellaneous Notes * Perioperative Nursing Note - Asha Muñiz RN - 05/25/2019 2:31 PM SUPERVISOR GROWER Radha Yousif combat systems operator mine warfare. 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 male with a history of T1 glottic SCCa. The risks and benefits of the procedure, including, but not limited to, epistaxis, neck discomfort, gagging, coughing, changes to the voice, and the need for future procedures were discussed with the patient. He agrees and wishes to proceed. DESCRIPTION OF PROCEDURE: In the preoperative holding area, the bilateral nasal cavities were anesthetized with 4% topical lidocaine and oxymetazoline. The patient was brought back to the operating room and sat up in the examchair. After the appropriate timeouts were performed, the working channel, flexible laryngoscope was introduced through the right nasal [...] On settings of 30 garcia, 15 ms pu lse-width, and 2 pulses per second, the lesion was initially treated in a non- contact mode until the tissue was appropriately blanched. I then switched to contact mode to help remove the treated tissue from the underlying laryngeal tissue. Once all lesions were completely removed, the scope was removed from the patient's nose, and he tolerated the procedure well. EBL: Minimal IV Fluids: None Specimens: None Condition: Stable to the PACU Attestation: INathanael MD, was present and participated in the entirety of the procedure RVISOR GROWER documented in this encounter Plan of Treatment Not on file documented as of this encounter Procedures Procedure Name Priority Date/Time Associated Diagnosis Comments LASER KTP 05/25/2019 2:16 PM SUPERVISOR GROWER Squamous cell carcinoma of larynx (CMS/HCC) Special [...] Action Date Dose Rate Site lidocaine (XYLOCAINE) 4 % (40 mg/mL) external solution As needed, Starting on Sat05/25/19 at 1414, Intra-Op Given 05/25/2019 2:14 PM SUPERVISOR GROWER 15 mL Surgical Site oxymetazoline (AFRIN) 0.05 % nasal spray As needed, Starting on 05/25/19 at 1413, Intra-Op Given 05/25/2019 2:13 PM SUPERVISOR GROWER 30 mL documented in this encounter Active and Recently Administered Medications Times are shown in SUPERVISOR GROWER. PRN Medication Order 05/23/2019 05/24/2019 05/25/2019 lidocaine (XYLOCAINE) 4 % (40 mg/mL) external solution (CANCELED) As needed, Starting on 05/25/19 at 1414, Intra-Op 1414 (Given - Provid er: Nathanael Valdez MD - Comment: added to Afrin as topical preop.) oxymetazoline (AFRIN) 0.05 % nasal spray (CANCELED) As needed, Starting on 05/25/19 at 1413, Intra-Op 1413 (Given - Provid er: Nathanael Valdez MD - Comment: Lidocaine 4% topical 15cc added) documented in this encounter Orders Diet Count Last Ordered Date First Orde red Date ADULT DISCHARGE DIET 1 05/25/2019 Nursing Count Last Ordered Date First Orde red Date DISCHARGE ACTIVITY 1 05/25/2019 DISCHARGE CALL PROVIDER 2 05/25/2019 FOLLOW UP WITH PROVIDER 1 05/25/2019 documented in this encounter Care Teams Manufacturing Finance Manager Relationship Specialty [place] [address] [address] Rheumatology 02/21/17 Lashay Downs, GAY Registered Nurse Pain Management 06/17/17 Duke Do, RN Registered Nurse 09/09/17 Ngozi Petty MD Radiation Oncologist Radiation Oncology 02/05/19 Jose Roberto Marx MD Referring Physician Otolaryngology 02/05/19 documented as of this encounter
--- OUTSIDE RECORDS SUMMARY | 2024-06-14 16:50 | XMS_ITS | Encounter Summary ---
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 Gender Identity Not on file Sexual Orientation Not on file 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 on file Not on natalie e documented as of this encounter Plan of Treatment Not on file documented as of this encounter Visit Diagnoses Not on filedocumented in this encounter Care Teams Cloth Napping Supervisor Relationship Specialty [place] [address] [facility] [address] [place] [address] Rheumatology 02/21/17 Lashay Downs, RN Registered Nurse Pain Management 06/17/17 Duke Do, RN Registered Nurse 09/09/17 Ngozi Petty MD Radiation Oncologist Radiation Oncology 02/05/19 Jose Roberto Marx MD Referring Physician Otolaryngology 02/05/19 documented as of this encounter
--- OUTSIDE RECORDS SUMMARY | 2024-06-14 16:50 | XMS_ITS | Encounter Summary ---
Author Organization [facility] Healthcare Address [address] [place] [address] Care Team Providers Care Fiberglass Machine Operator Name Role Phone Criss Blanco MD Unavailable Lashay Downs RN Unavailable Unavailab Duke Goodwin RN Unavailable UnavailNgozi Husain MD Unavailable [phone] Jose Roberto Marx MD Unavailable [phone] Reason for Visit * Reason Comments Fall Encounter Details Date Type Department Care Team (Late st Contact Info) Description 06/30/2019 7:50 AM MANAGER SEARCH ENGINE - 06/30/2019 11:30 AM [facility] Emergency [facility] Emergency Department [address] [place] [address] Rita Jackson MD [address] [place] [address] [place] [address] Fall, initial encounter (Primary Dx); Contusion of right elbow, initial encounter; Abrasion of right elbow, initial encounter Discharge Disposition: Discharge to home or self [...] file Legal Sex Male 12:56 AM MANAGER SEARCH ENGINE Gender Identity Not on file Sexual Orientation Not on file 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 on file Not on natalie e documented as of this encounter Last Filed Vital Signs Vital Sign Reading Time Taken Comments Blood Pressure 131/85 06/30/2019 11:15 AM MANAGER SEARCH ENGINE Pulse 64 06/30/2019 11:15 AM MANAGER SEARCH ENGINE Temperature 36.3 ??C (97.4 ??F) 06/30/2019 7:57 AM CS T Respiratory Rate 12 06/30/2019 10:30 AM MANAGER SEARCH ENGINE Oxygen Saturation 96% 06/30/2019 11:15 AM MANAGER SEARCH ENGINE Inhaled Oxygen Concentration - - Weight 98.9 kg (218 lb) 06/30/2019 7:57 AM MANAGER SEARCH ENGINE Height 185.4 cm (6' 1 ) 06/30/2019 7:57 AM MANAGER SEARCH ENGINE Body Mass Index 28.76 06/30/2019 7:57 AM MANAGER SEARCH ENGINE documented in this encounter Discharge Diagnoses Diagnosis Contusion of right elbow, initial encounter - CONTUSION OF RIGHT ELBOW, INITIAL ENCOUNTER Fall on same level due to ice and snow, initial encounter - FALL ON SAME LEVEL DUE TO ICE AND SNOW, INITIAL ENCOUNTER Garden or yard in single-family (private) house as the place of occurrence of the external cause - GARDEN OR YARD IN SINGLE-FAMILY (PRIVATE) HOUSE THE PLACE OF OCCURRENCE OF THE EXTERNAL CAUSE Encounter for immunization - ENCOUNTER FOR IMMUNIZATION Abrasion of right elbow, initial encounter - ABRASION OF RIGHT ELBOW, INITIAL ENCOUNTER documented in this encounter Discharge Instructions * Discharge Instructions* Rita Jackson MD - 06/30/2019 11:22 AM MANAGER SEARCH ENGINE Rest, Tylenol or ibuprofen for discomfort. Follow-up with her doctor in 3-5 days. Return to the ER with worsening symptoms or with GER SEARCH ENGINE * Attachments The following attachments cannot be sent through Care Everywhere. * Abrasion (AfterCare(R) Instructions(ER/ED)) (Montenegrin) documented in this encounter Medications at Time [...] or self care documented in this encounter ED Notes * Rita Jackson MD - 06/30/2019 8:09 AM CST Chief Complaint Patient presents with ??? Fall HPI 8:09 AM Samuel Sanchez is a 74 y.o. male presenting to the ED c/o fall this morning. He states he went to feed the birds this morning when he fell on the ice. He notes he fell on his right side and endorses right elbow and hip pain since incident. He denies syncope. He states he is unsure if hehit his head. Patient states he felt like he got the wind knocked out of him. Patient states he was able to ambulate normally afterwards. He endorses neck pain and FREDERICK. He endorses vision changes. He denies chest pain and SOB. He states he did not take any medication for pain. He notes he is unsure of when he got his last Tetanus shot. Patient reports no further complaints at this time and no other associated symptoms. Past Medical History: Diagnosis Date ??? Arthritis [...] OTHER MEDICAL hemorroids; Comments: Had done at [facility] in [place] ??? HX OTHER MEDICAL bladder infection ??? HX OTHER MEDICAL kidney stone ??? Malignant neoplasm of prostate (CMS/HCC) 1998 prostate Past Surgical History: Procedure Laterality Date ??? BICEPS TENODESIS Left 1969' ??? EAR SURGERY Left s repair perforated eardrum ??? LARYNGOSCOPY Right 01/09/2019 Direct laryngoscopy with biopsy ??? LARYNGOSCOPY Right 02/16/2019 Suspension microlaryngoscopy with KTP laser photoablation Right vocal fold lesion ??? LITHOTRIPSY s - 2018 5 or 6 times ??? ORCHIECTOMY Right 1969's ??? PROSTATE SURGERY Pinched Prostate: surgically repaired ??? ROTATOR CUFF REPAIR Right and removal of bone spurs ??? VASECTOMY 1969' HOME MEDICATIONS : biotin 5,000 mcg tablet,disintegrating esomeprazole DR (NexIUM) 20 mg capsule hydroxychloroquine (PLAQUENIL) 200 mg tablet ranitidine (ZANTAC) 300 mg capsule rOPINIRole (REQUIP) 1 mg tablet tamsulosin (FLOMAX) 0.4 mg extended release capsule biotin 10,000 mcg capsule hydroxychloroquine (PLAQUENIL) 200 mg tablet hwfxugsbkwzr-Eg-bqmw-minerals 18-0.4 mg tablet rOPINIRole (REQUIP) 1 mg tablet No Known Allergies Review of Systems Constitutional: Negative for chills, fatigue and fever. HENT: Negative for congestion, ear pain, rhinorrhea, sneezing and sore throat. Eyes: Positive for visual disturbance. Respiratory: Negative for cough, shortness of breath and wheezing. Cardiovascular: Negative for chest pain and palpitations. Gastrointestinal: Negative for abdominal pain, constipation, diarrhea, nausea and vomiting. Musculoskeletal: Positive for neck pain. Negative for arthralgias and back pain. +right elbow pain +right hip pain Skin: Negative for rash and wound. Neurological: Positive for headaches. Negative for dizziness, syncope, weakness and light-headedness. All other systems reviewed and are negative. Physical Exam Vitals signs and nursing note reviewed. Constitutional: General: He is not in acute distress. Appearance: He is well-developed. HENT: Head: Normocephalic and atraumatic. Eyes: Conjunctiva/sclera: Conjunctivae normal. Neck: Musculoskeletal: Normal range of motion and neck supple. Cardiovascular: Rate and Rhythm: Normal rate and regular rhythm. Heart sounds: Normal heart sounds. No murmur. No friction rub. No gallop. Pulmonary: Effort: Pulmonary effort is normal. No respiratory distress. Breath sounds: Normal breath sounds. No wheezing or rales. Abdominal: General: There is no distension. Palpations: Abdomen is soft. Tenderness: There is no tenderness. Musculoskeletal: Normal range of motion. General: No tenderness or deformity. Comments: Minimal tenderness to the olecranon. Skin: General: Skin is warm and dry. Capillary Refill: Capillary refill takes less than 2 seconds. Coloration: Skin is not pale. Findings: No erythema or rash. Comments: Superficial abrasion on the olecranon. Neurological: Mental Status: He is alert and oriented to person, place, and time. Psychiatric: Behavior: Behavior normal. Thought Content: Thought content normal. Judgment: Judgment normal. ED Course as of Jun 30 1634 Time: 06/30 1633 Comment: In d/w pt that we would eval with rad studies but I suspected all would be negative and wewould then d/c him. He agreed to plan By: Rita Jackson MD Vitals: 06/30/19 0915 06/30/19 0930 06/30/19 1030 06/30/19 1115 BP: 124/88 130/87 117/78 131/85 BP Location: Left arm Left arm Left arm Left arm Patient Position: Lying Lying Sitting Pulse: 59 60 56 64 Resp: 14 17 12 Temp: TempSrc: SpO2: 97% 97% 100% 96% Weight: Height: Patient Vitals for the past 24 hrs: BP Temp Temp src Pulse Resp SpO2 Height Weight 06/30/19 1115 131/85 -- -- 64 -- 96 % -- -- 06/30/19 1030 117/78 -- -- 56 12 100 % -- -- 06/30/19 0930 130/87 -- -- 60 17 97 % -- -- 06/30/19 0915 124/88 -- -- 59 14 97 % -- -- 06/30/19 0830 137/98 -- -- 58 14 100 % -- -- 06/30/19 0757 135/93 36.3 ??C (97.4 ??F) Temporal 63 18 99 % 185.4 cm (6' 1 ) 98.9 kg (218 lb) Labs Reviewed - No data to display CT Elbow Right WO Contrast Final Result 1. No fracture. 2. Osteoarthritis. Electronically signed by: Sulaiman Gar M.D. XR Elbow Right 2 or More Views Final Result 1. Elbow joint effusion raising concern for occult fracture in the setting of trauma, although without distinct fracture line identified. 2. Osteoarthritis. Electronically signed by: Sulaiman Gar M.D. CT Head WO Contrast Final Result No acute intracranial abnormality. Electronically signed by: Sulaiman Gar M.D. CT Cervical Spine WO Contrast Final Result 1. No acute osseous abnormality. 2. Cervical spondylosis. Electronically signed by: Sulaiman Gar M.D. Procedures MDM IMPRESSION: 1. Fall, initial encounter 2. Contusion of right elbow, initial encounter 3. Abrasion of right elbow, initial encounter ATTESTATIONS: This note is prepared by Teodora Hou, acting as a scribe for Rita Jackson MD. I electronicallysigned this note at 8:09 AM on 06/30/2019. I, Rita Jackson MD, have personally performed the services described in the documentation, reviewed the documentation, as recorded by the scribe in my presence, and it accurately and completely records my words and actions. Rita Jackson MD 06/30/19 0658 GER SEARCH ENGINE * Gio Singh RN - 06/30/2019 7:52 AM CST Pt arrived to room 10 with reports of falling on his right side while feeding the birds. Pt is unsure If he hit is head or not. No open areas or bumps noted to head. Pt denies any open areas or tearsand none noted at this time. GER SEARCH ENGINE documented in this encounter Plan of Treatment Not on file documented as of this encounter Procedures Procedure Name Priority Date/Time Associated Diagnosis Comments CT ELBOW RIGHT WO CONTRAST ED 06/30/2019 10:20 AM MANAGER SEARCH ENGINE XR ELBOW RIGHT 2 OR MORE VIEWS ED 06/30/2019 8:47 AM [address] SE[address] CERVICAL SPINE WO CONTRAST ED 06/30/2019 8:[address] HEAD WO CONTRAST ED 06/30/2019 8 :38 AM MANAGER SEARCH ENGINE documented in this encounter Results * CT Elbow Right WO Contrast (06/30/2019 10:20 AM MANAGER SEARCH ENGINE) Anatomical Region Laterality Modality Upper Extremities Right Computed [place]ño 06/30/2019 10:3 7 AM MANAGER SEARCH ENGINE Impressions 06/30/2019 10:41 AM MANAGER SEARCH ENGINE 1. ??No fracture. 2. ??Osteoarthritis. Electronically signed by: Sulaiman Gar M.D. Narrative 06/30/2019 10:41 AM MANAGER SEARCH ENGINE EXAMINATION: CT ELBOW RIGHT WO CONTRAST ORDERING HEALTHCARE PROVIDER: RITA JACKSON HISTORY: fall. Fall, bruising and swelling of right elbow ?? TECHNIQUE: Multidetector CT scan of the right elbow was performed. Coronal and sagittal images with rotating three dimensional and rotating maximum intensity projections were reconstructed. ??Automated exposure control was used as a dose optimization technique for this examination. COMPARISON: Correlation is made with elbow radiographs performed 06/22/2019 FINDINGS: Bones: There is no acute fracture identified. ??There is osteoarthritis at the elbow with joint space narrowing, osteophyte formation and joint bodies. Soft tissues: Posterior soft tissue swelling. ??No significant joint effusion to correspond with the apparent effusion on recent radiographs. Other: No other acute findings. Procedure Note Sulaiman Gar MD - 06/30/2019 EXAMINATION: CT ELBOW RIGHT WO CONTRAST ORDERING HEALTHCARE PROVIDER: RITA JACKSON HISTORY: fall. Fall, bruising and swelling of right elbow TECHNIQUE: Multidetector CT scan of the right elbow was performed. Coronal and sagittal images with rotating three dimensional and rotating maximum intensity projections were reconstructed. Automated exposure control was used as a dose optimization technique for this examination. COMPARISON: Correlation is made with elbow radiographs performed 06/22/2019 FINDINGS: Bones: There is no acute fracture identified. There is osteoarthritis at the elbow with joint space narrowing, osteophyte formation and joint bodies. Soft tissues: Posterior soft tissue swelling. No significant joint effusion to correspond with the apparent effusion on recent radiographs. Other: No other acute findings. IMPRESSION: 1. No fracture. 2. Osteoarthritis. Electronically signed by: Sulaiman Gar M.D. Rita Jackson MD IMG CT PROCEDURES Final R esult * XR Elbow Right 2 or More Views (06/30/2019 8:47 AM MANAGER SEARCH ENGINE) Anatomical Region Laterality Modality Upper Extremities, Elbow Right Compute d Radiography 06/30/2019 8:52 AM MANAGER SEARCH ENGINE Impressions 06/30/2019 8:55 AM MANAGER SEARCH ENGINE 1. ??Elbow joint effusion raising concern for occult fracture in the setting of trauma, although without distinct fracture line identified. 2. ??Osteoarthritis. Electronically signed by: Sulaiman Gar M.D. Narrative 06/30/2019 8:55 AM MANAGER SEARCH ENGINE EXAMINATION: XR ELBOW RIGHT 2 VIEWS ORDERING HEALTHCARE PROVIDER: RITA JACKSON HISTORY: pain fall. Fell on ice this am Pain posterior Hx of fx ?? TECHNIQUE: Right elbow 2 views COMPARISON: ??None available FINDINGS: BONES/JOINTS: The bone mineralization is normal. There is no acute fracture or dislocation. ??There is osteoarthritis of the elbow. SOFT TISSUES: Mild posterior soft tissue swelling. ??1 there is an elbow joint effusion. OTHER: ?? No other acute findings. Procedure Note Sulaiman Gar MD - 06/30/2019 EXAMINATION: XR ELBOW RIGHT 2 VIEWS ORDERING HEALTHCARE PROVIDER: RITA JACKSON HISTORY: pain fall. Fell on ice this am Pain posterior Hx of fx TECHNIQUE: Right elbow 2 views COMPARISON: None available FINDINGS: BONES/JOINTS: The bone mineralization is normal. There is no acute fracture or dislocation. There is osteoarthritis of the elbow. SOFT TISSUES: Mild posterior soft tissue swelling. 1 there is an elbow joint effusion. OTHER: No other acute findings. IMPRESSION: 1. Elbow joint effusion raising concern for occult fracture in the setting of trauma, although without distinct fracture line identified. 2. Osteoarthritis. Electronically signed by: Sulaiman Gar M.D. us Rita Jackson MD IMG XR PROCEDURES Final R esult * CT Cervical Spine WO Contrast (06/30/2019 8:38 AM MANAGER SEARCH ENGINE) Anatomical Region Laterality Modality Spine N/A Computed Tomogra phy 06/30/2019 8:43 AM MANAGER SEARCH ENGINE Impressions 06/30/2019 8:49 AM MANAGER SEARCH ENGINE 1. ??No acute osseous abnormality. 2. ??Cervical spondylosis. Electronically signed by: Sulaiman Gar M.D. Narrative 06/30/2019 8:49 AM MANAGER SEARCH ENGINE EXAMINATION: CT CERVICAL SPINE WO CONTRAST ORDERING HEALTHCARE PROVIDER: RITA JACKSON HISTORY: fall Fell this am, blurred vision and headache, neck pain ?? COMPARISON: None available TECHNIQUE: Noncontrast axial CT images with coronal and sagittal reconstructions through the cervical spine. Automated exposure control was used as a dose optimization technique for this examination. FINDINGS: The bone mineralization is normal. There is no acute fracture or prevertebral soft tissue hematoma. The craniocervical junction and the atlantoaxial relationship are preserved. There is normal cervical vertebral body alignment. ??There is grade 1 anterolisthesis of C7 on T1. ??There is intervertebral disc space loss with endplate osteophyte formation at C5-C6 and C6-C7. Evaluation of the individual disc levels reveals uncovertebral and facet joint hypertrophy contributing to moderate osseous neural foraminal stenoses on the right at C3-C4 and on the left C6-C7 level, with mild osseous neural foraminal stenoses at C4-C5 and C5-C6 and mild osseous central canal stenoses at C5-C6 and C6-C7. There are carotid artery calcifications. ??The lung apices appear clear. Procedure Note Sulaiman Gar MD - 06/30/2019 EXAMINATION: CT CERVICAL SPINE WO CONTRAST ORDERING HEALTHCARE PROVIDER: RITA JACKSON HISTORY: fall Fell this am, blurred vision and headache, neck pain COMPARISON: None available TECHNIQUE: Noncontrast axial CT images with coronal and sagittal reconstructions through the cervical spine. Automated exposure control was used as a dose optimization technique for this examination. FINDINGS: The bone mineralization is normal. There is no acute fracture or prevertebral soft tissue hematoma. The craniocervical junction and the atlantoaxial relationship are preserved. There is normal cervical vertebral body alignment. There is grade 1 anterolisthesis of C7 on T1. There is intervertebral disc space loss with endplate osteophyte formation at C5-C6 and C6-C7. Evaluation of the individual disc levels reveals uncovertebral and facet joint hypertrophy contributing to moderate osseous neural foraminal stenoses on the right at C3-C4 and on the left C6-C7 level, with mild osseous neural foraminal stenoses at C4-C5 and C5-C6 and mild osseous central canal stenoses at C5-C6 and C6-C7. There are carotid artery calcifications. The lung apices appear clear. IMPRESSION: 1. No acute osseous abnormality. 2. Cervical spondylosis. Electronically signed by: Sulaiman Gar M.D. Rita Jackson MD IMG CT PROCEDURES Final R esult * CT Head WO Contrast (06/30/2019 8:38 AM MANAGER SEARCH ENGINE) Anatomical Region Laterality Modality Head and Neck N/A Computed Tomogra phy 06/30/2019 8:40 AM MANAGER SEARCH ENGINE Impressions 06/30/2019 8:43 AM MANAGER SEARCH ENGINE No acute intracranial abnormality. Electronically signed by: Sulaiman Gar M.D. Narrative 06/30/2019 8:43 AM MANAGER SEARCH ENGINE EXAMINATION: ??CT HEAD WO CONTRAST ORDERING HEALTHCARE PROVIDER: RITA JACKSON HISTORY: fall. Fell this am, blurred vision and headache, neck pain ?? TECHNIQUE: Axial images acquired through the brain without intravenous contrast. ??Images stored on PACS. ??Automated exposure control was used as a dose optimization technique for this examination. COMPARISON: CT head 04/14/2010 FINDINGS: BRAIN: No intracranial hemorrhage or loss of chacko-white matter differentiation. ??No mass effect. There is diffuse cerebral parenchymal volume loss. EXTRA-AXIAL SPACES: No fluid collections. ??No masses. CALVARIUM: There is no calvarial fracture. SINUSES/MASTOIDS: The mastoid air cells and the visualized paranasal sinuses appear normal. OTHER: No other significant abnormality. Procedure Note Sulaiman Gar MD - 06/30/2019 EXAMINATION: CT HEAD WO CONTRAST ORDERING HEALTHCARE PROVIDER: RITA JACKSON HISTORY: fall. Fell this am, blurred vision and headache, neck pain TECHNIQUE: Axial images acquired through the brain without intravenous contrast. Images stored on PACS. Automated exposure control was used as a dose optimization technique for this examination. COMPARISON: CT head 04/14/2010 FINDINGS: BRAIN: No intracranial hemorrhage or loss of chacko-white matter differentiation. No mass effect. There is diffuse cerebral parenchymal volume loss. EXTRA-AXIAL SPACES: No fluid collections. No masses. CALVARIUM: There is no calvarial fracture. SINUSES/MASTOIDS: The mastoid air cells and the visualized paranasal sinuses appear normal. OTHER: No other significant abnormality. IMPRESSION: No acute intracranial abnormality. Electronically signed by: Sulaiman Gar M.D. Rita Jackson MD IMG CT PROCEDURES Final R esult documented in this encounter Visit Diagnoses Diagnosis Fall, initial encounter- Primary Contusion of right elbow, initial encounter Abrasion of right elbow, initial encounter documented in this encounter Discontinued Medications Medication Sig Discontinue Reason Start Date End Da te tehyefngqnvb-Kn-rtkv-min erals 18-0.4 mg tabletIndications:Minera l Deficiency Prevention,Vitamin Deficiency Prevention Take 1 tablet by mouth every morning 06/30/2019 hydroxychloroquine (PLAQUENIL) 200 mg tablet Take 200 mg by mouth 03/16/2019 06/30/2019 rOPINIRole (REQUIP) 1 mg tablet Take 1 mg by mouth as needed (restless legs) 06/30/2019 biotin 10,000 mcg capsuleIndications:suppl ement Take 1 capsule by mouth every morning 06/30/2019 documented as of this encounter Historical Medications * This list may reflect changes made after this encounter. rOPINIRole (REQUIP) 1 mg tabletIndications :Restless Legs Syndrome Take 1 mg by mouth daily as needed 04/08/2020 biotin 5,000 mcg tablet,disintegra tingIndications:h ealth Take 5,000 mcg by mouth every morning 12/20/2020 hydroxychloroquin e (PLAQUENIL) 200 mg tablet Take 400 mg by mouth daily 04/08/2020 added in this encounter Care Teams Fiberglass Machine Operator Relationship Specialty [place] [address] [facility] [address] [place] [address] Rheumatology 02/21/17 Lashay Downs, RN Registered Nurse Pain Management 06/17/17 Duke Do, RN Registered Nurse 09/09/17 Ngozi Petty MD Radiation Oncologist Radiation Oncology 02/05/19 Jose Roberto Marx MD Referring Physician Otolaryngology 02/05/19 documented as of this encounter
--- OUTSIDE RECORDS SUMMARY | 2024-06-14 16:50 | XMS_ITS | Encounter Summary ---
Author Organization [facility] Address [address] [place] [address] Phone Care Team Providers Care Timber Selector Name Role Phone Criss Blanco MD Unavailable Lashay Downs RN Unavailable Unavailab Duke Goodwin RN Unavailable UnavailNgozi Husain MD Unavailable [phone] Jose Roberto Marx MD Unavailable [phone] Reason for Visit * Reason Comments Squamous Cell Carcinoma Encounter Details Date Type Department Care Team (Late st Contact Info) Description 02/05/2019 3:15 PM CDT Office Visit 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); Dysphonia Social History Tobacco Use Types Packs/Day Years Used Date Smoking Tobacco: Former Cigarettes 966 - 1995 Smokeless Tobacco: Never Comments:Smoking History Pac ks/day: 2 Packs Alcohol Use Standard Drinks/Week Comments Yes 1 (1 standard drink = 0.6 oz pur e alcohol) AUDIT-C Answer Date Recorded Frequency of Alcohol Consumption 2-3 times a ronaldo silva 01/30/2019 Average Number of Drinks Not on file 019 Frequency of Binge Drinking Weekly 01/03 Sex and Gender Information Value Date Recorded Sex Assigned at Not on file Legal Sex Male 12:56 AM LIGHT FIXTURE SERVICER Gender Identity Not on file Sexual Orientation Not on file 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 Not on file Not on natalie e documented as of this encounter Last Filed Vital Signs Vital Sign Reading Time Taken Comments Blood Pressure 101/71 02/05/2019 3:26 PM CDT Pulse 73 02/05/2019 3:26 PM CDT Temperature - - Respiratory Rate - - Oxygen Saturation - - Inhaled Oxygen Concentration - - Weight 101.6 kg (224 lb) 02/05/2019 3:26 PM CDT Height 185.4 cm (6' 1 ) 02/05/2019 3:26 PM CDT Body Mass Index 29.55 02/05/2019 3:26 PM CDT documented in this encounter Progress Notes * Nathanael Valdez MD - 02/05/2019 3:15 PM CDT PATIENT NAME: Samuel Sanchez : 1945 DOS: 02/05/2019 REFERRING PHYSICIAN: Ngozi Petty MD CHIEF COMPLAINT: Chief Complaint Patient presents with ??? Squamous Cell Carcinoma HISTORY OF PRESENT ILLNESS: Samuel Sanchez is a 73 y.o. male who presents today in evaluation for [id number] SCCA of the rightTVC. He has had [...] surgery if desired.. Nathanael Valdez MD, FACS Full Charge Bookkeeper [facility] Division of Laryngology Department of Otolaryngology--Head & Neck Surgery Portions of this note were dictated using M*Modal Fluency Direct. Elevator Service Mechanic variances may occur. I have seen and examined the patient. I agree with the findings and plan of care as documented in the resident/fellow's note. 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
--- OUTSIDE RECORDS SUMMARY | 2024-06-14 16:50 | XMS_ITS | Encounter Summary ---
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 Gender Identity Not on file Sexual Orientation Not on file 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 on file Not on natalie e documented as of this encounter Plan of Treatment Not on file documented as of this encounter Visit Diagnoses Not on filedocumented in this encounter Care Teams Creasing Machine Operator Relationship Specialty [place] [address] [facility] [address] [place] [address] Rheumatology 02/21/17 Lashay Downs, RN Registered Nurse Pain Management 06/17/17 Duke Do, RN Registered Nurse 09/09/17 Ngozi Petty MD Radiation Oncologist Radiation Oncology 02/05/19 Jose Roberto Marx MD Referring Physician Otolaryngology 02/05/19 documented as of this encounter
--- OUTSIDE RECORDS SUMMARY | 2024-06-14 16:50 | XMS_ITS | Encounter Summary ---
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
--- OUTSIDE RECORDS SUMMARY | 2024-06-14 16:50 | XMS_ITS | Encounter Summary ---
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) Dysphonia Procedures HYDRAULIC BOOM OPERATOR videostroboscopy - Nathanael Valdez MD Phone: tel: fax: [facility] (All Locations) Referral ID Status Reason Start Date Expiration Date Visits Re quested Visits Authorized [id number] Closed 04/03/2019 10/12/2020 1 1 Encounter Details Date Type Department Care Team (Late st Contact Info) Description 04/03/2019 Orders Only [facility] Otolaryngology [facility] [address] [place] [id number] Marisol Madrid RN Squamous cell carcinoma of [...] on file Legal Sex Male 12:56 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 [address] [place] [address] Rheumatology 02/21/17 Lashay Downs, RN Registered Nurse Pain Management 06/17/17 Duke Do, RN Registered Nurse 09/09/17 Ngozi Petty MD Radiation Oncologist Radiation Oncology 02/05/19 Jose Roberto Marx MD Referring Physician Otolaryngology 02/05/19 documented as of this encounter
--- OUTSIDE RECORDS SUMMARY | 2024-06-14 16:50 | XMS_ITS | Encounter Summary ---
Author Organization [facility] Address [address] [place] [address] Care Team Providers Care Burner Tender Name Role Phone Criss Blanco MD Unavailable Lashay Downs RN Unavailable Unavailab Duke Goodwin RN Unavailable UnavailNgozi Husain MD Unavailable [phone] Jose Roberto Marx MD Unavailable [phone] Encounter Details Date Type Department Care Team (Latest Contact Info) Description 03/09/2019 6:37 AM CDT - 03/09/2019 11:07 AM CDT Hospital Encounter [facility] Operating Room [address] [place] [address] Nathanael Valdez MD [address] [place] [address] Squamous cell carcinoma of larynx ([facility]/HCC) Discharge Disposition: Discharge to home or self [...] on file Legal 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 Gender Identity Not on file Sexual Orientation Not on file 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 Not on file Not on natalie e documented as of this encounter Last Filed Vital Signs Vital Sign Reading Time Taken Comments Blood Pressure 113/69 03/09/2019 10:50 AM CDT Pulse 61 03/09/2019 10:30 AM CDT Temperature 36 ??C (96.8 ??F) 03/09/2019 10:06 AM CDT Respiratory Rate 18 03/09/2019 10:30 AM CDT Oxygen Saturation 97% 03/09/2019 10:30 AM CDT Inhaled Oxygen Concentration - - Weight 99.8 kg (220 lb) 03/09/2019 7:04 AM CDT Height 185.4 cm (6' 1 ) 03/09/2019 7:04 AM CDT Body Mass Index 29.03 03/09/2019 7:04 AM CDT documented in this encounter Discharge Diagnoses Diagnosis Malignant neoplasm of larynx, unspecified (HCC) - MALIGNANT NEOPLASM OF LARYNX, UNSPECIFIED Gastro-esophageal reflux disease without esophagitis - GASTRO-ESOPHAGEAL REFLUX DISEASE WITHOUT ESOPHAGITIS Personal history of malignant neoplasm of prostate - PERSONAL HISTORY OF MALIGNANT NEOPLASM OF PROSTATE Personal history of urinary calculi - PERSONAL HISTORY OF URINARY CALCULI Other halfway (current) drug therapy - OTHER TOOL AND DIE TECHNICIAN (CURRENT) DRUG THERAPY Personal history of nicotine dependence - PERSONAL HISTORY OF NICOTINE DEPENDENCE documented in this encounter Medications at Time [...] mg by mouth once a week 9 onuckbbvnhul-Oa-u foreing-minerals 18-0.4 mg tabletIndications :Mineral Deficiency Prevention,Vitami n [...] Cardiovascular Pertinent negatives: hypertension ; CAD ; DC ; CABG ; valvular heart disease; valve [...] of multiple sites (CMS/HCC) ??? Headache ??? superintendent terminal use of drug ??? Discogenic low back [...] 1980 Bisept tendonitis ??? HX OTHER MEDICAL 1994 Pinched Prostate ??? HX OTHER MEDICAL 2001 kidney stone ??? HX OTHER MEDICAL hemorroids; Comments: Had done at [facility] in [place] ??? HX OTHER MEDICAL bladder infection ??? [...] -- -- Historical Provider, Notes: Not taking kleqoqjtrnu-xihqiqual-kwi C-Mn capsule -- -- Historical Provider, methotrexate 2.5 mg tablet -- -- Historical Provider, Notes: Not taking lsvwowxwplkt-Ii-zpdz-minerals 18-0.4 mg tablet -- -- Historical Provider, ranitidine (ZANTAC) 300 mg capsule -- -- Historical Provider, tamsulosin (FLOMAX) 0.4 mg extended release capsule -- -- Historical Provider, No current facility-administered medications for this encounter. Current Outpatient Medications: ??? biotin 10,000 mcg capsule ??? esomeprazole DR (NexIUM) 20 mg capsule ??? folic acid (FOLVITE) 1 mg tablet ??? sqwmgzmaxcp-ucqkgiroz-vli C-Mn capsule ??? bgohehbphomz-No-nrnv-minerals 18-0.4 mg tablet ??? ranitidine (ZANTAC) 300 [...] Medication protocol when under care of a ROTOR COIL TAPER Planned anesthesia: General Informed Consent: Anesthesia plan [...] CDT [facility] Preoperative [facility] Planning [facility] Clinic Location: [facility] The night before your surgery: * Do [...] Don't take on day of surgery ??? ocujztlkvbs-xhayslpzg-qax C-Mn capsule Don't take on day of surgery ??? fhgvttvxrinr-Uf-fgfy-minerals 18-0.4 mg tablet Stop taking 1 week [...] your surgery: Vitamin E, Fish Oil (Lovaza, Trent 3), Herbal medicines, Diet Pills ?? If [...] 1 mg by mouth every morning ??? olqfsqftdkf-chixapbrj-wer C-Mn capsule Take 1 capsule by mouth every morning ??? yjwecqotjmvn-Py-ogia-minerals 18-0.4 mg tablet Take 1 tablet by mouth every morning ??? ranitidine (ZANTAC) 300 mg capsule Take 300 mg by mouth nightly ??? tamsulosin (FLOMAX) 0.4 mg extended release capsule Take 0.4 mg by mouth every morning Implants No active implants to display in this view. SKIN Piercings Remaining: No Denies tattoos Wound (LDAs) Type of Wound (LDA): (deines open wounds) SCREENINGS Banuelos Fall Risk Score: 15 Marcelle index score: 100 Is someone currently physically or emotionally hurting you or your family?: Denies PATIENT CARE PLANNING Advance Directives (For Healthcare) Advance Directive: Patient does not have advance directive Communication/Magnetic Prospecting Supervisor Needs Communication Needs: None Patient's Preferred Language: Serbian Assistive Devices/DME: Eyeglasses Discharge Planning Type of [...] 2 days of your surgery, please call [phone] and ask for your surgeon's office documented in this encounter Plan of Treatment Not on file documented as of this encounter Procedures Procedure Name Priority Date/Time Associated Diagnosis Comments SURGICAL PATHOLOGY Routine 03/09/2019 9: 46 AM CDT Squamous cell carcinoma of larynx (CMS/HCC) LASER KTP 03/09/2019 9:11 AM CDT Squamous cell carcinoma of larynx (CMS/HCC) Special Needs KTP laser ordered with Hortensia @ [facility] 02/19/19 MICROLARYNGOSCOPY 03/09/2019 9:1 1 AM CDT Squamous cell carcinoma of larynx (CMS/HCC) Special Needs KTP laser ordered with Hortensia @ [facility] 02/19/19 documented in this encounter Results * Surgical pathology (03/09/2019 9:46 AM CDT) Tissue (Vocal cord) 03/09/2019 9:46 AM CDT Narrative PATHOLOGY [facility] - 03/10/2019 5:55 PM CDT EPIC results best viewed via link to PDF [facility] [place] [address] SURGICAL PATHOLOGY REPORT FINAL Patient Name: ?? PASQUALE SANCHEZ Gender: ??M : ??1945 (Age: 73) Address: ??[address] [place] [address] Hospital #: ??[id number] Taken:03/09/2019 Received:03/09/2019 Reported: 03/10/2019 Patient Type: WC SDS Client ?[facility] Service: Surgery Location: [facility] Physician(s): ??Nathanael Valdez M.D. Diagnosis: Larynx, right anterior margin, biopsy: ? - Superficial fragments of squamous epithelium with carcinoma in-situ, see comment cad1/03/10/2019 07:46 By this signature, I attest that [...] interpretation for this case was performed at [facility], Department of Surgical Pathology, [address] [facility] [address], [id number], ??[place], [place] ??[address] ?? CLIA # [id number] Sarah Lang MD, PhD History: The patient [...] cm in aggregate. ??Labeled A1. ??Jar 0. mab03/09/2019 15:15 Iris Cobos, MS, PA (A By this signature, I attest that the above diagnosis is based upon my personal examination of the slides(and/or other material). The performance characteristics of some immunohistochemical stains, fluorescence in-situ hybridization tests and immunophenotyping by flow cytometry cited in this report (if any) were determined by the Surgical Pathology Department at [facility] as part of an ongoing quality assurance representative program and in compliance with federally mandated [...] determined by the Surgical Pathology Department of [facility]. ??It has not been cleared or approved by the U. S. Food and Drug Administration. IMAGES AND SCANNED DOCUMENTS, IF INCLUDED, ONLY VIEWABLE IN PDF VERSION OF REPORT Nathanael Valdez MD LAB PATHOLOGY ORDERABLES Final Result PATHOLOGY [facility] [phone] documented in this encounter Visit Diagnoses Diagnosis [...] 03/09/2019 documented in this encounter Care Teams Burner Tender Relationship Specialty [place] [address] [facility] [address] [place] [address] Rheumatology 02/21/17 Lashay Downs, RN Registered Nurse Pain Management 06/17/17 Duke Do, RN Registered Nurse 09/09/17 Ngozi Petty MD Radiation Oncologist Radiation Oncology 02/05/19 Jose Roberto Marx MD Referring Physician Otolaryngology 02/05/19 documented as of this encounter
--- OUTSIDE RECORDS SUMMARY | 2024-06-14 16:50 | XMS_ITS | Encounter Summary ---
Author Organization [facility] Address [address] [place] [address] Phone Care Team Providers Care Superintendent Measurement Name Role Phone Criss Blanco MD Unavailable Lashay Downs RN Unavailable Unavailab Duke Goodwin RN Unavailable UnavailNgozi Husain MD Unavailable [phone] Jose Roberto Marx MD Unavailable [phone] Reason for Visit * Reason Onset Date Comments Test Results 06/05/2019 Encounter Details Date Type Department Care Team (Late st Contact Info) Description 06/05/2019 Telephone [facility] Otolaryngology [facility] [address] [address] Marisol Madrid RN Test Results [...] on file Legal Sex Male 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 Amessage was sent to Dr. Valdez who replied, a sample was not taken at that particular procedure. Patient made aware and will speak with Dr. Valdez more at his next appointment 06/23/19 TENDER ASSISTANT documented in this encounter Plan of Treatment Not on file documented as of this encounter Visit Diagnoses Not on filedocumented in this encounter Care Teams Superintendent Measurement Relationship Specialty [place] [address] [facility] [address] [place] [address] Rheumatology 02/21/17 Lashay Downs, RN Registered Nurse Pain Management 06/17/17 Duke Do, RN Registered Nurse 09/09/17 Ngozi Petty MD Radiation Oncologist Radiation Oncology 02/05/19 Jose Roberto Maxr MD Referring Physician Otolaryngology 02/05/19 documented as of this encounter
--- OUTSIDE RECORDS SUMMARY | 2024-06-14 16:50 | XMS_ITS | Encounter Summary ---
Author Organization 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 [address], [place] [address] Ngozi Petty MD [facility] [place] [address] 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) Social History Tobacco Use Types Packs/Day Years Used Date Smoking Tobacco: Former Cigarettes 2 30 1 966 - 1995 Smokeless Tobacco: Never Comments:Smoking History Pac ks/day: 2 Packs Alcohol Use Standard Drinks/Week Comments Yes 1 (1 standard drink = 0.6 oz pur e alcohol) AUDIT-C Answer Date Recorded Frequency of Alcohol Consumption 2-3 times a ronlado k 01/30/2019 Average Number of Drinks Not on file 019 Frequency of Binge Drinking Weekly 01/03 Sex and Gender Information Value Date Recorded Sex Assigned at Not on file Legal Sex Male 12:56 AM MEDIA 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 Gender Identity Not on file Sexual Orientation Not on file 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 on file Not on natalie e documented as of this encounter Last Filed Vital Signs Vital Sign Reading Time Taken Comments Blood Pressure 116/77 01/30/2019 1:58 PM CDT Pulse 71 01/30/2019 1:58 PM CDT Temperature 36.3 ??C (97.4 ??F) 01/30/2019 1:58 PM CD T Respiratory Rate 20 01/30/2019 1:58 PM CDT Oxygen Saturation 98% 01/30/2019 1:58 PM CDT Inhaled Oxygen Concentration - - Weight 101.9 kg (224 lb 9.6 oz) 01/30/2019 1:58 PM CDT Height 185.4 cm (6' 1 ) 01/30/2019 1:58 PM CDT Body Mass Index 29.63 01/30/2019 1:58 PM CDT documented in this encounter Consult Notes * Ngozi Petty MD - 01/30/2019 1:45 PM CDT Staff Physician: Ngozi Petty MD Referring Physician: Patient Care Team: Jose Roberto Marx MD as Referring Physician (Otolaryngology) Date of Service: 01/30/2019 RADIATION ONCOLOGY CONSULT NOTE REASON FOR CONSULTATION: Samuel Sanchez presents today for consultative evaluation and definitive treatment recommendations in regard to their diagnosis of glottic SCCA. HISTORY OF PRESENT ILLNESS: Mr. Sanchez is a 73 yo man with history of heavy tobacco use. The patient was evaluated by Dr. Marx in ENT for dysphonia that was worsening over a 6 month period of time. The patient had no otalgia, no dysphagia but he does have sore throat if he talks too much. He was taken to the OR for a microscopic DL. Biopsy was obtained and returned c/w SCCA. 01/09/19 Right TVC bx p16 negative SCCA, moderately differentiated. He was staged as a cT1aN0 SCCA of the right TVC by Dr. Marx. PET scan was ordered. 01/22/19 [facility] scan [facility] Subtle asymmetric nodular thickening of the right TVC. No associated with increased FDG uptake. Lesion is likely too small to be seen by PET. The patient has been referred for consideration of definitive radiation therapy. PAST MEDICAL, SURGICAL, FAMILY, AND SOCIAL HISTORY History Last Reviewed by Ngozi Petty MD on 01/30/2019 at 2:20 PM Sections Reviewed Family, Surgical, Tobacco, Alcohol, Drug Use, Sexual Activity Patient is retired. He is the primary caregiver for his who is disabled. He is also a major support system for his daughter and his grandchildren. He would have limited ability to receive daily radiation treatments. ALLERGIES: Allergies as of 01/30/2019 Reviewed by Dimitri Sal RTD on 01/30/2019 Severity Noted Reaction Type Reactions Hydrocodone-acetaminophen Not Specified Hydrocodone Low Itching Reaction: itching, MEDICATIONS: Review Info User Date and Time DIMITRI SAL RTD [2338] 01/30/2019 1:55 PM REVIEW OF SYSTEM Review of Systems Constitutional: Negative. HENT: Positive for voice change. Eyes: Negative. Respiratory: Negative. Cardiovascular: Negative. Gastrointestinal: Negative. Endocrine: Negative. Genitourinary: Positive for nocturia. Musculoskeletal: Negative. Skin: Negative. Neurological: Positive for headaches. RADIATION SCREENING QUESTIONS Prior radiation therapy: No Pacemaker: No Other implantable devices: No Connective tissue disease: No PHYSICAL EXAMINATION: BP 116/77 (BP Location: Right arm, Patient Position: Sitting) Pulse 71 Temp 36.3 ??C (97.4 ??F)(Oral) Resp 20 Ht 185.4 cm (6' 1 ) Wt 101.9 kg (224 lb 9.6 oz) SpO2 98% BMI 29.63 kg/m?? Pain Score and Location 01/30/19 1358 PainSc: 0-No pain 100, Fully active, able to carry on all pre-disease performed without restriction (ECOG equivalent 0) Physical Exam Constitutional: He is oriented to person, place, and time. He appears well- developed and well-nourished. No distress. HENT: Head: Normocephalic and atraumatic. Mouth/Throat: Oropharynx is clear and moist. Dentition looks well. Eyes: EOM are normal. Neck: Normal range of motion. Neck supple. No thyromegaly present. Cardiovascular: Normal rate and regular rhythm. Pulmonary/Chest: Effort normal. No respiratory distress. Musculoskeletal: Normal range of motion. Lymphadenopathy: He has no cervical adenopathy. Neurological: He is alert and oriented to person, place, and time. Skin: Skin is warm and dry. Psychiatric: He has a normal mood and affect. His behavior is normal. Judgment and thought content normal. Vitals reviewed. DIAGNOSTIC REPORTS REVIEWED: Imaging: I personally reviewed the imaging and findings are noted in the HPI. Laboratory/Pathology: Outside pathology reviewed. ASSESSMENT: Cancer Staging Squamous cell carcinoma of larynx (CMS/HCC) Staging form: Larynx - Glottis, AJCC 8th Edition - Clinical stage from 01/09/2019: Stage I (cT1, cN0, cM0) - Signed by Ngozi Petty MD on 01/30/2019 PLAN: I personally reviewed the patient's clinical pathologic and radiographic data as well as performed my own history and physical examination. I discussed with the patient the natural history of early stage glottic cancer. We discussed the extremely favorable outcomes for this cancer. I discussed with the patient that if he is not felt to be a candidate for a definitive surgical intervention, definitive radiation therapy is a reasonable option. I discussed with the patient the process of planning and receiving radiation therapy. We discussed CT simulation and daily treatments for 5.5 weeks duration. I discussed the acute and long-term side effects of radiation therapy. Acute side effects include but are not limited to fatigue, possible dry mouth, pain with swallowing. We discussed skin reactions such as redness, tenderness and possible peeling. I discussed the possible need for IV fluids and pain medications. We discussed that some patients require hospitalization and placement of a feeding tube. We discussed continuous churn buttermaker side effects of radiation therapy, which may include but are not limited to chronic dry mouth, possible difficulties swallowing, risk of esophageal stricture and the remote risk reliance on a feeding tube. The patient was given the opportunity to ask questions all of which were answered to his satisfaction. Mr. Sanchez plans to proceed with obtaining a second surgical opinion. He has concerns about his ability to continue his duties for his and family and undergo daily radiation treatments. I will await the results of his second surgical opinion. RAD ONC PAIN PLAN: The patient is not currently having any pain that requires changes in pain management. Thank you for allowing me to participate in the care of your patient. Please do not hesitate to contact me with any questions or concerns. 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 05/16/2017 01/30/2019 oxyCODONE-acetaminophe n (PERCOCET) 5-325 mg per tabletIndications:Pain Take 1 tablet by mouth every 6 (six) hours as needed for pain. 07/26/2018 01/30/2019 methylPREDNISolone (MEDROL, RADHA,) 4 mg Dosepack follow package directions 07/28/2018 01/30/2019 methylPREDNISolone (MEDROL DOSEPACK) 4 mg Dosepack Take as directed. 07/26/2018 01/30/2019 meloxicam (MOBIC) 15 mg tablet Take 1 tablet (15 mg total) by mouth daily. Do not take with other NSAIDs 07/28/2018 01/30/2019 glucosamine-chondroiti n 250-200 mg tablet Take by mouth. 01/30/2019 HYDROcodone-acetaminop hen (NORCO) 10-325 mg per tabletIndications:Lowe r Back Pain,Pain Take 1 tablet by mouth 3 (three) times a day as needed for pain. 10/04/2017 01/30/2019 diazePAM (VALIUM) 5 mg tablet Take 1 tablet (5 mg total) by mouth every 6 (six) hours as needed for muscle spasms. Therapy completed 07/26/2018 01/30/2019 documented as of this encounter Care Teams Call Center Professional Relationship Specialty [place] [address] [place] [address] Rheumatology 02/21/17 Lashay Downs, RN Registered Nurse Pain Management 06/17/17 Duke Do, RN Registered Nurse 09/09/17 documented as of this encounter
--- OUTSIDE RECORDS SUMMARY | 2024-06-14 16:50 | XMS_ITS | Encounter Summary ---
Author Organization [facility] Facility Care Team Providers Care Information Systems Auditor Name Role Phone Criss Blanco MD Unavailable Lashay Downs RN Unavailable Unavailab Duke Goodwin RN Unavailable UnavailNgozi Husain MD Unavailable [phone] Jose Roberto Marx MD Unavailable [phone] Encounter Details Date Type Department Care Team (Latest Contact Info) Description 05/25/2019 Travel Social History Tobacco Use Types Packs/Day [...] on file Legal Sex Male 12:56 AM TELEVISION ENGINEER Gender Identity Not on file Sexual Orientation Not on file 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 on file Not on natalie e documented as of this encounter Plan of Treatment Not on file documented as of this encounter Visit Diagnoses Not on filedocumented in this encounter Care Teams Information Systems Auditor Relationship Specialty [place] [address] [facility] [address] [place] [address] Rheumatology 02/21/17 Lashay Downs, RN Registered Nurse Pain Management 06/17/17 Duke Do, RN Registered Nurse 09/09/17 Ngozi Petty MD Radiation Oncologist Radiation Oncology 02/05/19 Jose Roberto Marx MD Referring Physician Otolaryngology 02/05/19 documented as of this encounter
--- OUTSIDE RECORDS SUMMARY | 2024-06-14 16:50 | XMS_ITS | Encounter Summary ---
Author Organization [facility] Healthcare Address [address] [place] [address] Care Team Providers Care Director [employer] Marketing Name Role Phone Criss Blanco MD Unavailable Lashay Downs RN Unavailable Unavailab Duke Goodwin RN Unavailable UnavailNgozi Husain MD Unavailable [phone] Jose Roberto Marx MD Unavailable [phone] Encounter Details Date Type Department Care Team (Late st Contact Info) Description 05/25/2019 2:16 PM DAY CARE HOME MOTHER Anesthesia Event [facility] Operating Room [address] [place] [address] [place] [address] [place] [address] Anesthesia Record Procedure Summary Procedure Name Responsible Anesthesiologist Anesthesia Start Time Anesthesia Stop Time Flexible Laryngoscopy with KTP laser photoablation (Right) Events Date Time Event Comment 05/25/2019 1416 In Room 1422 Proc Start 1423 Incision Start 1431 Proc Fin 1432 Out of Room Meds * Agents No [...] on file Legal Sex Male 12:56 AM DAY CARE HOME MOTHER Gender Identity Not on file Sexual Orientation Not on file 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 on file Not on natalie e documented as of this encounter Plan of Treatment Not on file documented as of this encounter Visit Diagnoses Not on filedocumented in this encounter Care Teams Director Alliance Marketing Relationship Specialty [place] [address] [facility] [address] [place] [address] Rheumatology 02/21/17 Lashay Downs, RN Registered Nurse Pain Management 06/17/17 Duke Do, RN Registered Nurse 09/09/17 Ngozi Petty MD Radiation Oncologist Radiation Oncology 02/05/19 Jose Roberto Marx MD Referring Physician Otolaryngology 02/05/19 documented as of this encounter
--- OUTSIDE RECORDS SUMMARY | 2024-06-14 16:50 | XMS_ITS | Encounter Summary ---
Author Organization [facility] Address [address] [place] [address] Phone Care Team Providers Care Sausage Wrapper Name Role Phone Criss Blanco MD Unavailable Lashay Downs RN Unavailable Unavailab Duke Goodwin RN Unavailable UnavailNgozi Husain MD Unavailable [phone] Jose Roberto Marx MD Unavailable [phone] Reason for Visit * Reason Comments Post-op Encounter Details Date Type Department Care Team (Late st Contact Info) Description 04/07/2019 1:15 PM GRANITE CHIP TERRAZZO FINISHER Office Visit [facility] Otolaryngology [facility] [address] [place], [place] [address] [id number] Nathanael Valdez MD [facility] [place] [address] Squamous cell carcinoma of larynx (CMS/HCC) (Primary [...] on file Legal Sex Male 12:56 AM GRANITE CHIP TERRAZZO FINISHER Gender Identity Not on file Sexual Orientation Not on file Occupation Industry Job Start Date Job End Date [employer] may Not on file Not on file Not on natalie e documented as of this encounter Progress Notes * Nathanael Valdez MD - 04/07/2019 1:15 PM CST PATIENT NAME: Samuel Sanchez : 1945 DOS: 04/07/2019 REFERRING PHYSICIAN: Self Referral CHIEF COMPLAINT: Chief Complaint Patient presents with ??? Post-op INTERVAL HISTORY: Samuel Sanchez is a 73 y.o. 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 He is doing well and has no new issues. He feels that his voice did much better after his second procedure. He denies dysphagia, odynophagia, referred otalgia, or hemoptysis. OUTCOMES: GFI: 8 VHI-10: 6 VCI: 3 RSI: 10 REVIEW OF SYSTEMS: Review of Systems Constitutional: [...] mood and hallucinations. EXAM: Physical Exam Constitutional: General: He is not in acute distress. Appearance: Normal appearance. HENT: Head: Normocephalic. Right Ear: External ear normal. Left Ear: External ear normal. Nose: Nose normal. Mouth/Throat: Lips: [place]. No lesions. Neck: Comments: His voice is strong and reasonably clear. The pitch is expected for his age [...] appearance. The mobility demonstrates symmetric abduction and adduction. The right vocal fold mucosa is normal except for two punctate a reas of leukoplakia on the free edge anteriorly not involving the commissure. During phonation, glottic closure is complete. The mucosal wave is intact and chasing. There is mild supraglottic hyperfunction present on exam. The scope was then removed from the patient's nose, and he tolerated the procedure well. ASSESSMENT/PLAN: Squamous cell carcinoma of larynx (CMS/HCC) There are 2 small punctate areas of leukoplakia on the anterior free edge of the right true vocal fold. We discussed that his last pathology reports shows some CIS at that anterior margin even thoughthe tissue had appeared grossly normal. For now, I have recommended observation given its proximityto the anterior commissure and the previous good response he's had to the laser. We will check again in 6 weeks. No orders of the defined types were placed in this encounter. DISPOSITION: Return in about 6 weeks (around 05/19/2019) for next scheduled voice follow up with video. Nathanael Valdez MD, FACS [facility] Division of Laryngology Department of Otolaryngology--Head & Neck Surgery Portions of this note were dictated using M*Modal Fluency Direct. Finish Rolls Operator variances may occur. ITE CHIP TERRAZZO FINISHER documented in this encounter Miscellaneous Notes * Assessment & Plan Note - Nathanael Valdez MD - 04/07/2019 1:24 PM GRANITE CHIP TERRAZZO FINISHER Associated Problem(s): 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) There are 2 small punctate areas of leukoplakia on the anterior free edge of the right true vocal fold. We discussed that his last pathology reports shows some CIS at that anterior margin even thoughthe tissue had appeared grossly normal. For now, I have recommended observation given its proximityto the anterior commissure and the previous good response he's had to the laser. We will check again in 6 weeks. ITE CHIP TERRAZZO FINISHER documented in this encounter Plan of Treatment Not on file 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)- Primary Malignant neoplasm of larynx, unspecified site Dysphonia documented in this encounter Historical Medications * This list may reflect changes made after this encounter. rOPINIRole (REQUIP) 1 mg tablet Take 1 mg by mouth as needed (restless legs) 06/30/2019 hydroxychloroquin e (PLAQUENIL) 200 mg tablet Take 200 mg by mouth 3 03/16/2019 06/30/2019 added in this encounter Care Teams Sausage Wrapper Relationship Specialty [place] [address] [address] Rheumatology 02/21/17 Lashay Downs, GAY Registered Nurse Pain Management 06/17/17 Duke Do, RN Registered Nurse 09/09/17 Ngozi Petty MD Radiation Oncologist Radiation Oncology 02/05/19 Jose Roberto Marx MD Referring Physician Otolaryngology 02/05/19 documented as of this encounter
--- OUTSIDE RECORDS SUMMARY | 2024-06-14 16:50 | XMS_ITS | Encounter Summary ---
Author Organization [facility] Address [address] [place] [address] Phone Care Team Providers Care Golf Course Designer Name Role Phone Criss Blanco MD Unavailable Lashay Downs RN Unavailable Unavailab Duke Goodwin RN Unavailable UnavailNgozi Husain MD Unavailable [phone] Jose Roberto Marx MD Unavailable [phone] Encounter Details Date Type Department Care Team (Late st Contact Info) Description 05/12/2019 11:00 AM OVERWEAVER Office Visit [facility] Otolaryngology [address] [facility] [address] [place], [place] [address] [id number] Nathanael Valdez MD [facility] [place] [address] Squamous cell carcinoma of larynx (CMS/HCC) (Primary [...] on file Legal Sex Male 12:56 AM OVERWEAVER Gender Identity Not on file Sexual Orientation Not on file Occupation Industry Job Start Date Job End Date [employer] may Not on file Not on file Not on natalie e documented as of this encounter Progress Notes * Nathanael Valdez MD - 05/12/2019 11:00 AM CST PATIENT NAME: Samuel Sanchez : 1945 DOS: 05/12/2019 REFERRING PHYSICIAN: Self Referral CHIEF COMPLAINT: No chief complaint on file. INTERVAL HISTORY: Samuel Sanchez is a 73 y.o. male who presents today for follow-up of his E8mP1P0 glottic squamous cell carcinoma. He is doing [...] Not enlarged, swollen or pale. Mouth/Throat: Lips: [place]. No lesions. Mouth: Mucous membranes are moist. [...] follow-up after procedure. Nathanael Valdez MD, FACS Skull Grinder [facility] Division of Laryngology Department of Otolaryngology--Head & Neck Surgery Portions of this note were dictated using M*Modal Fluency Direct. Silk Hanger variances may occur. WEAVER documented in this encounter Miscellaneous Notes * Assessment & Plan Note - Nathanael Valdez MD - 05/12/2019 11:45 AM OVERWEAVER Associated Problem(s): 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) The leukoplakia of the anterior right true [...] The patient agrees and wishes to proceed. WEAVER documented in this encounter Plan of Treatment Not on file 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)- Primary Malignant neoplasm of larynx, unspecified site documented in this encounter Care Teams Golf Course Designer Relationship Specialty [place] [address] [facility] [address] [place] [address] Rheumatology 02/21/17 Lashay Downs, RN Registered Nurse Pain Management 06/17/17 Duke Do, RN Registered Nurse 09/09/17 Ngozi Petty MD Radiation Oncologist Radiation Oncology 02/05/19 Jose Roberto Marx MD Referring Physician Otolaryngology 02/05/19 documented as of this encounter
--- OUTSIDE RECORDS SUMMARY | 2024-06-14 16:50 | XMS_ITS | Encounter Summary ---
Author Organization [facility] Address [address] [place] [address] Care Team Providers Care Administrative Assistant Data Entry Name Role Phone Criss Blanco MD Unavailable Lashay Downs RN Unavailable Unavailab Duke Goodwin RN Unavailable UnavailNgozi Husain MD Unavailable [phone] Jose Roberto Marx MD Unavailable [phone] Reason for Visit * Reason Comments Follow-up Encounter Details Date Type Department Care Team (Late st Contact Info) Description 05/29/2019 10:00 AM AUTOMOTIVE PARTS SPECIALIST Office Visit [facility] Orthopedics and Sports Medicine [address] [place] [id number] Iris Patten PA [address] [place] [address] [address] [place] [address] Primary osteoarthritis of right knee (Primary Dx); Primary osteoarthritis of right hip Social History Tobacco Use Types Packs/Day Years [...] file Legal Sex Male 12:56 AM AUTOMOTIVE PARTS SPECIALIST Gender Identity Not on file Sexual Orientation Not on file 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 on file Not on natalie e documented as of this encounter Last Filed Vital Signs Vital Sign Reading Time Taken Comments Blood Pressure 108/78 05/29/2019 9:54 AM AUTOMOTIVE PARTS SPECIALIST Pulse 63 05/29/2019 9:54 AM AUTOMOTIVE PARTS SPECIALIST Temperature - - Respiratory Rate - - Oxygen Saturation - - Inhaled Oxygen Concentration - - Weight 100.4 kg (221 lb 6.4 oz) 05/29/2019 9:54 AM AUTOMOTIVE PARTS SPECIALIST Height 185.4 cm (6' 1 ) 05/29/2019 9:54 AM AUTOMOTIVE PARTS SPECIALIST Body Mass Index 29.21 05/29/2019 9:54 AM AUTOMOTIVE PARTS SPECIALIST documented in this encounter Progress Notes * Iris Patten, ZOILA - 05/29/2019 10:00 AM CST Images from the original note were not included. NEW PATIENT VISIT Subjective CHIEF COMPLAINT He had concerns including Follow-up of the Right Knee. HISTORY OF PRESENT ILLINESS Pt here to follow up on his right knee OA/pain. He had a CSI 3 mos ago, which provided short term relief (a couple of weeks). He otherwise denies any significant changes. He only has symptoms with weight-bearing activities and states that these are mild. When he is able to rest, he has no pain. He notes today increasing right hip pain, anterolateral aspect. Worse with walking and aches at nighttime. His prior pelvic x-ray head demonstrated moderate femoral acetabular joint arthritis, worst within the anterior lateral aspect. 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 He also has no past medical history of Acute respiratory failure requiring reintubation ([facility]), Awareness under anesthesia, Delayed emergence from general [...] which includes the following prescription(s): biotin, esomeprazoledr, hydroxychloroquine, musobmkcfpho-pp-egml-minerals, ranitidine, ropinirole, and tamsulosin. ALLERGIES He has No Known Allergies. SOCIAL HISTORY He reports that he quit smoking about 24 years ago. His smoking use included cigarettes. He startedsmoking about 61 years ago. He has a 45.00 pack-year smoking history. He has never used smokeless tobacco. He reports current alcohol use of about 3.0 standard drinks of alcohol per week. He reports previous drug use. FAMILY HISTORY Family History Adopted: Yes Problem Relation Age of Onset ??? Other Other adopted ??? Other Other adopted ??? Anesthesia problems Neg Hx REVIEW OF SYSTEMS Review of Systems Constitutional: Negative for chills, fatigue and fever. Musculoskeletal: Negative for arthralgias, gait problem, joint swelling and myalgias. Skin: Negative for rash and wound. Neurological: Negative for tremors, weakness and numbness. Hematological: Does not bruise/bleed easily. Objective PHYSICAL EXAM BP 108/78 Pulse 63 Ht 185.4 cm (6' 1 ) Wt 100.4 kg (221 lb 6.4 oz) BMI 29.21 kg/m?? Right knee Inspection Erythema: absent Swelling: absent Surgical scar/wound: absent. Gait: normal Palpation Tenderness: present. The tenderness is located in the medial joint line, patella, lateral joint line and condyle. Crepitus: positive Patella grind: positive Range of [...] of the left knee. REVIEW OF X-RAYS/STUDIES/LABS Assessment/Plan Samuel was seen today for follow-up. Diagnoses and all orders for this visit: Primary osteoarthritis of right knee Primary osteoarthritis of right hip Plan Discussed ongoing management of his hip/knee OA including injection management vs. NSAID burst therapy prn. He would like to continue with observation as he feels his symptoms are more mild and he can currently live with it. He would like to f/u in 3 mos for continued care/monitoring of his symptoms; he will f/u sooner, ifneeded. All questions were answered. Patient expressed full understanding and agreement of plan. ZOILA Adams MOTIVE PARTS SPECIALIST documented in this encounter Plan of Treatment Not on file documented as of this encounter Visit Diagnoses Diagnosis Primary osteoarthritis of right knee- Primary Primary osteoarthritis of right hip documented in this encounter Discontinued Medications Medication Sig Discontinue Reason Start Date End Da te folic acid (FOLVITE) 1 mg tabletIndications:Folate Deficiency Take 1 mg by mouth every morning Therapy completed 05/29/2019 yzybbeecbvz-mrxnyqovp-xb t C-Mn capsuleIndications:suppl ement Take 1 capsule by mouth every morning Therapy completed 05/29/2019 methotrexate 2.5 mg tabletIndications:Rheuma toid Arthritis,8 tabs weekly Take 20 mg by mouth once a week Therapy completed 05/29/2019 documented as of this encounter Care Teams Administrative Assistant Data Entry Relationship Specialty [place] [address] [facility] [address] [place] [address] Rheumatology 02/21/17 Lashay Downs, RN Registered Nurse Pain Management 06/17/17 Duke Do, GAY Registered Nurse 09/09/17 Ngozi Petty MD Radiation Oncologist Radiation Oncology 02/05/19 Jose Roberto Marx MD Referring Physician Otolaryngology 02/05/19 documented as of this encounter
--- OUTSIDE RECORDS SUMMARY | 2024-06-14 16:50 | XMS_ITS | Encounter Summary ---
Author Organization [facility] Address [address] [place] [address] Care Team Providers Care Loan Documents Closer Name Role Phone Criss Blanco MD Unavailable Lashay Downs RN Unavailable Unavailab Duke Goodwin RN Unavailable UnavailNgozi Husain MD Unavailable [phone] Jose Roberto Marx MD Unavailable [phone] Encounter Details Date Type Department Care Team (Latest Contact Info) Description 05/25/2019 1:41 PM TELECOM ANALYST - 05/25/2019 2:44 PM TELECOM ANALYST Hospital Encounter [facility] Operating Room [address] [place] [address] Nathanael Valdez MD [address] [place] [address] Discharge Disposition: Discharge to home or self [...] on file Legal Sex Male 12:56 AM TELECOM ANALYST Gender Identity Not on file Sexual Orientation Not on file 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 Not on file Not on file Not on natalie e documented as of this encounter Last Filed Vital Signs Vital Sign Reading Time Taken Comments Blood Pressure 149/89 05/25/2019 2:39 PM TELECOM ANALYST Pulse 60 05/25/2019 2:39 PM TELECOM ANALYST Temperature 36.1 ??C (97 ??F) 05/25/2019 2:39 PM TELECOM ANALYST Respiratory Rate 18 05/25/2019 2:32 PM TELECOM ANALYST Oxygen Saturation 99% 05/25/2019 2:39 PM TELECOM ANALYST Inhaled Oxygen Concentration - - Weight - - Height - - Body Mass Index - - documented in this encounter Discharge Diagnoses Diagnosis Malignant neoplasm of larynx, unspecified (HCC) - MALIGNANT NEOPLASM OF LARYNX, UNSPECIFIED Postnasal drip - POSTNASAL DRIP Other halfway (current) drug therapy - OTHER MEDICAL IMAGING DIRECTOR (CURRENT) DRUG THERAPY documented in this encounter Medications at Time [...] mg by mouth once a week 9 jtmuqaeqkfmz-Eg-d foreign-minerals 18-0.4 mg tabletIndications :Mineral Deficiency Prevention,Vitami [...] Procedure(s): Flexible Laryngoscopy with KTP laser photoablation COM ANALYST Source Note - Nathanael Valdez MD - 05/12/2019 11:00 AM TELECOM ANALYST PATIENT NAME: Samuel Sanchez : 1945 DOS: 05/12/2019 REFERRING PHYSICIAN: Self Referral CHIEF COMPLAINT: No chief complaint on file. INTERVAL HISTORY: Samuel Sanchez is a 73 y.o. male who presents today for follow-up of his [id number] glottic squamous cell carcinoma. He is doing [...] Not enlarged, swollen or pale. Mouth/Throat: Lips: [place]. No lesions. Mouth: Mucous membranes are moist. [...] follow-up after procedure. Nathanael Valdez MD, FACS Garden Worker [facility] Division of Laryngology Department of Otolaryngology--Head & Neck Surgery Portions of this note were dictated using M*Modal Fluency Direct. Product Development Assistant variances may occur. COM ANALYST documented in this encounter Miscellaneous Notes * Perioperative Nursing Note - Asha Muñiz, RN - 05/25/2019 2:31 PM TELECOM ANALYST Radha Yousif crop setting out machine operator. Laser fundtions: Start 14:25 Stop 14:30 Total energy 126 Joules Max garcia 30 15 Milliseconds 2 pulses per second using a .4Endostat fiber COM ANALYST * Op Note - Nathanael Valdez MD - 05/25/2019 2:23 PM CST PATIENT NAME: Samuel Sanchez : 1945 DATE OF SURGERY: 05/25/2019 ANESTHESIA: Local Surgeon(s) and Role: * Nathanael Valdez MD - Primary * Neto Morley MD - Resident - Assisting PRE-OPERATIVE [...] participated in the entirety of the procedure COM ANALYST documented in this encounter Plan of Treatment Not on file documented as of this encounter Procedures Procedure Name Priority Date/Time Associated Diagnosis Comments LASER KTP 05/25/2019 2:16 PM TELECOM ANALYST Squamous cell carcinoma of larynx (CMS/HCC) Special [...] Recently Administered Medications Times are shown in TELECOM ANALYST. PRN Medication Order 05/23/2019 05/24/2019 05/25/2019 lidocaine (XYLOCAINE) 4 % (40 mg/mL) external solution (CANCELED) As needed, Starting on Sat05/25/19 at 1414, Intra-Op 1414 (Given - Provid er: Nathanael Valdez MD - Comment: added to Afrin as topical preop.) oxymetazoline (AFRIN) 0.05 % nasal spray (CANCELED) As needed, Starting on 05/25/19 at 1413, Intra-Op 1413 (Given - Provid er: Nathanael Valdez MD - Comment: Lidocaine 4% topical 15cc added) documented in this encounter Orders Medications Ordered That Quinn ht Not Have Been Administered Count Last Ordered Date First Ordered Date lidocaine (XYLOCAINE) 4 % (4 0 mg/mL) external solution 1 05/25/2019 oxymetazoline (AFRIN) 0.05 % nasal spray 1 05/25/2019 Diet Count Last Ordered Date First Orde red Date ADULT DISCHARGE DIET 1 05/25/2019 Nursing Count Last Ordered Date First Orde red Date DISCHARGE ACTIVITY 1 05/25/2019 DISCHARGE CALL PROVIDER 2 05/25/2019 FOLLOW UP WITH PROVIDER 1 05/25/2019 documented in this encounter Care Teams Loan Documents Closer Relationship Specialty [place] [address] [facility] [address] [place] [address] Rheumatology 02/21/17 Lashay Downs, RN Registered Nurse Pain Management 06/17/17 Duke Do, RN Registered Nurse 09/09/17 Ngozi Petty MD Radiation Oncologist Radiation Oncology 02/05/19 Jose Roberto Marx MD Referring Physician Otolaryngology 02/05/19 documented as of this encounter
--- OUTSIDE RECORDS SUMMARY | 2024-06-14 16:50 | XMS_ITS | Encounter Summary ---
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
--- OUTSIDE RECORDS SUMMARY | 2024-06-14 16:50 | XMS_ITS | Encounter Summary ---
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 Gender Identity Not on file Sexual Orientation Not on file 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 on file Not on natalie e documented as of this encounter Plan of Treatment Not on file documented as of this encounter Visit Diagnoses Not on filedocumented in this encounter Care Teams Operations Support Analyst Relationship Specialty [place] [address] [facility] [address] [place] [address] Rheumatology 02/21/17 Lashay Downs, RN Registered Nurse Pain Management 06/17/17 Duke Do, RN Registered Nurse 09/09/17 Ngozi Petty MD Radiation Oncologist Radiation Oncology 02/05/19 Jose Roberto Marx MD Referring Physician Otolaryngology 02/05/19 documented as of this encounter
--- OUTSIDE RECORDS SUMMARY | 2024-06-14 16:50 | XMS_ITS | Encounter Summary ---
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 Gender Identity Not on file Sexual Orientation Not on file 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 on file Not on natalie e documented as of this encounter Plan of Treatment Not on file documented as of this encounter Visit Diagnoses Not on filedocumented in this encounter Care Teams Pipe And Boiler Covers Supervisor Relationship Specialty [place] [address] [facility] [address] [place] [address] Rheumatology 02/21/17 Lashay Downs, RN Registered Nurse Pain Management 06/17/17 Duke Do, RN Registered Nurse 09/09/17 Ngozi Petty MD Radiation Oncologist Radiation Oncology 02/05/19 Jose Roberto Marx MD Referring Physician Otolaryngology 02/05/19 documented as of this encounter
--- OUTSIDE RECORDS SUMMARY | 2024-06-14 16:50 | XMS_ITS | Encounter Summary ---
Author Organization [facility] Healthcare Address [address] [place] [address] Care Team Providers Care Social Sciences Lecturer Name Role Phone Criss Blanco MD Unavailable Lashay Downs RN Unavailable Unavailab Duke Goodwin RN Unavailable UnavailNgozi Husain MD Unavailable [phone] Jose Roberto Marx MD Unavailable [phone] Encounter Details Date Type Department Care Team (Latest Contact Info) Description 02/16/2019 8:05 AM CDT - 02/16/2019 1:29 PM CDT Hospital Encounter [facility] Operating Room [address] [place] [address] Nathanael Valdez MD [address] [place] [address] 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 Not on file Not on natalie e documented as of this encounter Last Filed Vital Signs Vital Sign Reading Time Taken Comments Blood Pressure 130/80 02/16/2019 1:15 PM CDT Pulse 64 02/16/2019 1:20 PM CDT Temperature 36.5 ??C (97.7 ??F) 02/16/2019 11:52 AM C DT Respiratory Rate 15 02/16/2019 1:05 PM CDT Oxygen Saturation 94% 02/16/2019 1:20 PM CDT Inhaled Oxygen Concentration - - Weight 102.1 kg (225 lb) 02/16/2019 8:15 AM CDT Height 185.4 cm (6' 1 ) 02/16/2019 8:15 AM CDT Body Mass Index 29.69 02/16/2019 8:15 AM CDT documented in this encounter Discharge Diagnoses Diagnosis Malignant neoplasm of larynx (HCC) - MALIGNANT NEOPLASM OF LARYNX, UNSPECIFIED Malignant neoplasm of larynx, unspecified site documented in this encounter Medications at Time [...] mg by mouth once a week 9 hsaqbiqiokyh-Hq-h foreign-minerals 18-0.4 mg tabletIndications :Mineral Deficiency Prevention,Vitami [...] male who presents today in evaluation for [id number] SCCA of the rightTVC. He has had [...] surgery if desired.. Nathanael Valdez MD, FACS Labor Relations Officer [facility] Division of Laryngology Department of Otolaryngology--Head & Neck Surgery Portions of this note were dictated using M*Modal Fluency Direct. Marketing Data Specialist variances may occur. I have seen and [...] Preoperative Assessment and Planning CPAP Clinic Location: [facility] The night before your surgery: * [...] Don't take on day of surgery ??? qtrbqlyotsg-fmmtyozqr-ned C-Mn capsule Stop taking 1 week prior to surgery ??? okjngvrfaotd-Sw-jwmf-minerals 18-0.4 mg tablet Stop taking 1 week [...] your surgery: Vitamin E, Fish Oil (Lovaza, [place] 3), Herbal medicines, Diet Pills ?? If [...] 1 mg by mouth every morning ??? ujshginuofm-ctkkytedt-iun C-Mn capsule Take 1 capsule by mouth every morning ??? qqcslrkydpeb-Zo-zbfk-minerals 18-0.4 mg tablet Take 1 tablet by [...] Directive: Patient does not have advance directive Communication/Estate And Trust Tax Principal Needs Communication Needs: Glasses Patient's Preferred Language: Cymraes Assistive Devices/DME: Eyeglasses Hearing - Right Ear: [...] 2 days of your surgery, please call [phone] and ask for your surgeon's office José [...] cord) 02/16/2019 11:32 AM CDT Narrative PATHOLOGY [facility] - 02/18/2019 3:14 PM CDT EPIC results best viewed via link to PDF [facility] [place] [address] SURGICAL PATHOLOGY REPORT FINAL Patient Name: ?? PASQUALE SANCHEZ Gender: ??M : ??1945 (Age: 73) Address: ??[address] [place] [address] Hospital #: ??[id number] Taken:02/16/2019 Received:02/16/2019 Reported: 02/18/2019 Patient Type: WC SDS Client ?[facility] Service: Surgery Location: [facility] Physician(s): ??Nathanael Valdez M.D. ZOILA Steward Diagnosis: [...] interpretation for this case was performed at [facility], Department of Surgical Pathology, [address] [facility], [place] [id number], ??[facility], [place] ??[address] ?? CLIA # [id number] Waqas Olvera M.D (Leon)., Ph.D. History: The [...] posterior inferior margin are two pieces of red-amssey tissue measuring 0.2 x 0.1 by less [...] H1. ??Jar 0. ??>>>>> mab/02/16/2019 15:46 Iris Cobos MS, PA (A By this signature, I attest that the above diagnosis is based upon my personal examination of the slides(and/or other material). The performance characteristics of some immunohistochemical stains, fluorescence in-situ hybridization tests and immunophenotyping by flow cytometry cited in this report (if any) were determined by the Surgical Pathology Department at [facility] as part of an ongoing air quality chemist program and in compliance with federally [...] determined by the Surgical Pathology Department of [facility]. ??It has not been cleared or approved by the U. S. Food and Drug Administration. IMAGES AND SCANNED DOCUMENTS, IF INCLUDED, ONLY VIEWABLE IN PDF VERSION OF REPORT Nathanael Valdez MD LAB PATHOLOGY ORDERABLES Final Result PATHOLOGY [facility] [phone] documented in this encounter Visit Diagnoses Diagnosis [...] 8:36 AM CDT 30 mL/hr 30 mL/hr documented [...] 0836 (New Bag - Prov ider: Rosalba Momin RN)1124 (New Bag - Provider: Manpreet Brewster CRNA)1149 [...] ondansetron (ZOFRAN) injection 4 mg 1 02/16 oxymetazoline (AFRIN) 0.05 % nasal spray 1 02/16/2019 prochlorperazine (COMPAZINE) injection 5 mg 1 02/16/2019 scopolamine patch 72 hour 1 patch 1 019 sodium chloride 0.9% flush 0.5-20 mL 2 02/01 Diet Count Last Ordered Date First Orde red Date ADULT DISCHARGE DIET 1 02/16/2019 Nursing Count Last Ordered Date First Orde red Date DISCHARGE ACTIVITY 1 02/16/2019 DISCHARGE CALL PROVIDER 3 02/16/2019 documented in this encounter Care Teams Social Sciences Lecturer Relationship Specialty [place] [address] [facility] [address] [place] [address] Rheumatology 02/21/17 Lashay Downs, RN Registered Nurse Pain Management 06/17/17 Duke Do, RN Registered Nurse 09/09/17 Ngozi Petty MD Radiation Oncologist Radiation Oncology 02/05/19 Jose Roberto Marx MD Referring Physician Otolaryngology 02/05/19 documented as of this encounter
--- OUTSIDE RECORDS SUMMARY | 2024-06-14 16:51 | XMS_ITS | Encounter Summary ---
Author Organization [facility] Healthcare Address [address] [place] [address] Care Team Providers Care Mellowing Machine Operator Name Role Phone Criss Blanco MD Unavailable Lashay Downs RN Unavailable Unavailab Duke Goodwin RN Unavailable UnavailNgozi Husain MD Unavailable [phone] Jose Roberto Marx MD Unavailable [phone] Grey Tomas MD Primary Care Provider [phone] Encounter Details Date Type Department Care Team (Late st Contact Info) Description 01/06/2019 Orders Only [facility] Health Information Management [address] [place] [id number] Viraj Romeo, [place] [address] [place] [address] Social History Tobacco Use Types Packs/Day Years Used Date Smoking Tobacco: Former Cigarettes 2 30 Smokeless Tobacco: Never Comments:Smoking History Pac ks/day: 2 Packs Alcohol Use Standard Drinks/Week Comments Yes 2 (1 standard drink = 0.6 oz pur e alcohol) Sex and Gender Information Value Date Recorded Sex Assigned at Not on file 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 Gender Identity Not on file Sexual Orientation Not on file documented as of this encounter Plan of Treatment Not on file documented as of this encounter Visit Diagnoses Not on filedocumented in this encounter Additional Health Concerns Infection Onset Date Last Indicated Resolved Time COVID: Suspected 10/23/2023 10/23/2023 10/24/2023 3:06 AM CDT documented as of this encounter Care Teams Mellowing Machine Operator Relationship Specialty Start Date End Date Grey Tomas MD PCP - General Family Practice 07/27/22 [place] [id number] [facility] [address] [place] [address] Rheumatology 02/21/17 Lashay Downs, RN Registered Nurse Pain Management 06/17/17 Duke Do, RN Registered Nurse 09/09/17 Ngozi Petty MD Radiation Oncologist Radiation Oncology 02/05/19 Jose Roberto Marx MD Referring Physician Otolaryngology 02/05/19 documented as of this encounter
--- OUTSIDE RECORDS SUMMARY | 2024-06-14 16:51 | XMS_ITS | Encounter Summary ---
Author Organization [facility] Healthcare Address [address] [place] [address] Care Team Providers Care Corporate Counselor Name Role Phone Criss Blanco MD Unavailable Lashay Downs RN Unavailable Unavailab Duke Goodwin RN Unavailable Unavailabl e Reason for Visit * Reason Comments Back Pain pt reports pain to t he right lower back. pt states it hurts when he sits on stands but laying down flat makes it feel better. pt denies having problems urinating and nausea. pt states he has had this pain for 2 weeks. pt states he went to the PCP for the pain and they did a MRI. pt does not belives it is his back but belives it is a kdiney stone Encounter Details Date Type Department Care Team (Late st Contact Info) Description 07/25/2018 8:10 PM [employer] WARFARE TECHNICAL - 07/26/2018 1:32 AM [facility] Emergency [facility] Emergency Department [address] [place] [address] Abelardo oJhnson, [address] [place] [address] Right low back pain, unspecified chronicity, with sciatica presence unspecified (Primary Dx); Chronic right-sided low back pain, with sciatica presence unspecified Discharge Disposition: Discharge to home or self [...] on file Legal Sex Male 12:56 AM ELECTRONIC WARFARE TECHNICAL Gender Identity Not on file Sexual Orientation Not on file documented as of this encounter Last Filed Vital Signs Vital Sign Reading Time Taken Comments Blood Pressure 120/87 07/25/2018 7:44 PM [employer] WARFARE TECHNICAL Pulse 68 07/25/2018 7:44 PM [employer]ARF[employer] TECHNICAL Temperature 36.6 ??C (97.9 ??F) 07/25/2018 7:44 PM CS T Respiratory Rate 18 07/25/2018 7:44 PM [employer]AR[employer] TECHNICAL Oxygen Saturation 98% 07/25/2018 7:44 PM [employer] WARFARE TECHNICAL Inhaled Oxygen Concentration - - Weight 99.8 kg (220 lb) 07/25/2018 7:44 PM [employer] TE[employer] Height 185.4 cm (6' 1 ) 07/25/2018 7:44 PM [employer]ARFARE TECHNICAL Body Mass Index 29.03 07/25/2018 7:44 PM [employer] WARFARE TECHNICAL documented in this encounter Discharge Instructions * Attachments The following attachments cannot be sent through Care Everywhere. * Back Pain (Acute or Chronic) (Prydeinig) documented in this encounter Medications at Time of Discharge biotin 10,000 mcg capsuleIndication s:supplement Take 1 capsule by mouth every morning 06/30/2019 diazePAM (VALIUM) 5 mg tablet Take 1 tablet (5 mg total) by mouth every 6 (six) hours as needed for muscle spasms. 10 tablet 07/26/2018 01/30/2019 folic acid (FOLVITE) 1 mg tabletIndications :Folate Deficiency Take 1 mg by mouth every morning 05/29/2019 glucosamine-chond roitin 250-200 mg tablet Take by mouth. 01/30/2019 HYDROcodone-aceta minophen (NORCO) 10-325 mg per tabletIndications :Lower Back Pain,Pain Take 1 tablet by mouth 3 (three) times a day as needed for pain. 90 tablet 10/04/2017 01/30/2019 HYDROcodone-aceta minophen (NORCO) 10-325 mg per tabletIndications :Pain Take 1 tablet by mouth every 6 (six) hours as needed for pain. 20 tablet 04/21/2018 02/06/2019 methotrexate 2.5 mg tabletIndications :Rheumatoid Arthritis,8 tabs weekly Take 20 mg by mouth once a week 05/29/2019 methylPREDNISolon e (MEDROL DOSEPACK) 4 mg Dosepack Take as directed. 21 tablet 07/26/2018 01/30/2019 zgknyohbgydj-Eq-[id number] foreign-minerals 18-0.4 mg tabletIndications :Mineral Deficiency Prevention,Vitami n Deficiency Prevention Take 1 tablet by mouth every morning 06/30/2019 omeprazole (PriLOSEC) 20 mg capsule Take 20 mg by mouth daily. 02/06/2019 oxyCODONE-acetami nophen (PERCOCET) 5-325 mg per tabletIndications :Pain Take 1 tablet by mouth every 6 (six) hours as needed for pain. 10 tablet 07/26/2018 01/30/2019 potassium 99 mg tablet Take by mouth. 02/06/2019 ranitidine (ZANTAC) 300 mg capsuleIndication s:gastroesophagea l reflux disease Take 300 mg by mouth nightly 04/08/2020 tamsulosin (FLOMAX) 0.4 mg capsule,extended release 24hr TAKE ONE CAPSULE BY MOUTH EVERY DAY 30 capsule 4 01/28/2017 02/06/2019 tiZANidine (ZANAFLEX) 2 mg tablet Take 1 tablet (2 mg total) by mouth every 6 (six) hours as needed for muscle spasms. 15 tablet 05/16/2017 01/30/2019 documented as of this encounter Ordered Prescriptions Prescription Sig Dispense Quantity Refills Last Filled Start Date End Date diazePAM (VALIUM) 5 mg tablet Take 1 tablet (5 mg total) by mouth every 6 (six) hours as needed for muscle spasms. 10 tablet 07/26/2018 01/30/2019 methylPREDNISolone (MEDROL DOSEPACK) 4 mg Dosepack Take as directed. 21 tablet 07/26/2018 01/30/2019 oxyCODONE-acetamin ophen (PERCOCET) 5-325 mg per tabletIndications: Pain Take 1 tablet by mouth every 6 (six) hours as needed for pain. 10 tablet 07/26/2018 01/30/2019 documented in this encounter Discharge Disposition Disposition Code Departure Means Destination Discharge to home or self care documented in this encounter ED Notes * Abelardo Johnson DO - 07/26/2018 12:36 AM CST Chief Complaint Patient presents with ??? Back Pain pt reports pain to the right lower back. pt states it hurts when he sits on stands but laying down flat makes it feel better. pt denies having problems urinating and nausea. pt states he has had thispain for 2 weeks. pt states he went to the PCP for the pain and they did a MRI. pt does not belivesit is his back but belives it is a kdiney stone 11:43 PM 07/25/2018 - Samuel Sanchez, a 73 y/o male with a PMHx of a kidney stone, nephrolithiasisand arthritis, presents to the ED complaining of a worsening sharp right lower chronic back pain. Patient reports that the pain started about 2-3 weeks ago, but has worsened in the last 3 days. Patient also reports that he received injections, but it had no effect on the pain. Patient did not take any medications to relieve the pain. Patient does endorse EtOH. Back Pain Location: Lumbar spine Chronicity: Chronic Associated symptoms: no abdominal pain, no bladder incontinence, no bowel incontinence, no chest pain, no dysuria, no fever, no numbness, no paresthesias, no perianal numbness, no tingling and no weakness Past Medical History: Diagnosis Date ??? Arthritis [...] MEDICAL hemorroids; Comments: Had done at [facility] in [place] ??? HX OTHER MEDICAL bladder infection ??? HX OTHER MEDICAL kidney stone ??? Malignant neoplasm of prostate ([facility]) 1998 prostate Past Surgical History: Procedure Laterality Date ??? OTHER SURGICAL HISTORY Bisept tendonitis: Surgically repaired ??? OTHER SURGICAL HISTORY 1988 removal of bone spurs Rt shoulder ??? OTHER SURGICAL HISTORY Pinched Prostate: surgically repaired HOME MEDICATIONS : biotin 10,000 mcg capsule diazePAM (VALIUM) 5 mg tablet folic acid (FOLVITE) 1 mg tablet glucosamine-chondroitin 250-200 mg tablet HYDROcodone-acetaminophen (NORCO) 10-325 mg per tablet HYDROcodone-acetaminophen (NORCO) 10-325 mg per tablet methotrexate 2.5 mg tablet methylPREDNISolone (MEDROL DOSEPACK) 4 mg Dosepack xtgrroealltb-Wv-aott-minerals 18-0.4 mg tablet omeprazole (PriLOSEC) 20 mg capsule oxyCODONE-acetaminophen (PERCOCET) 5-325 mg per tablet potassium 99 mg tablet ranitidine (ZANTAC) 300 mg capsule tamsulosin (FLOMAX) 0.4 mg capsule,extended release 24hr tiZANidine (ZANAFLEX) 2 mg tablet Allergies Allergen Reactions ??? Hydrocodone-Acetaminophen ??? Hydrocodone Itching Reaction: itching, Review of Systems Constitutional: Negative. Negative for activity change, appetite change, chills, diaphoresis, fatigue and fever. HENT: Negative. Negative for congestion, facial swelling, sore throat and trouble swallowing. Eyes: Negative. Negative for pain and visual disturbance. Respiratory: Negative. Negative for apnea, cough, chest tightness, shortness of breath and stridor. Cardiovascular: Negative. Negative for chest pain and palpitations. Gastrointestinal: Negative. Negative for abdominal distention, abdominal pain, bowel incontinence, diarrhea, nausea and vomiting. Genitourinary: Negative. Negative for bladder incontinence, decreased urine volume, difficulty urinating, dysuria, flank pain and frequency. Musculoskeletal: Positive for back pain. Negative for gait problem and myalgias. Neurological: Negative for dizziness, tingling, seizures, syncope, facial asymmetry, speech difficulty, weakness, light-headedness, numbness and paresthesias. Physical Exam Constitutional: He is oriented to person, place, and time. He appears well- developed and well-nourished. No distress. HENT: Head: Normocephalic and atraumatic. Eyes: Pupils are equal, round, and reactive to light. Conjunctivae and EOM are normal. Neck: Normal range of motion. Neck supple. Cardiovascular: Normal rate, regular rhythm, normal heart sounds and intact distal pulses. Pulmonary/Chest: Effort normal and breath sounds normal. No respiratory distress. He has no wheezes. Abdominal: Soft. He exhibits no distension. There is no tenderness. Musculoskeletal: Normal range of motion. He exhibits no edema or deformity. Lumbar back: He exhibits tenderness (R paraspinal ). He exhibits no bony tenderness. Neurological: He is alert and oriented to person, place, and time. He has normal strength. No cranial nerve deficit or sensory deficit. Coordination and gait normal. GCS eye subscore is 4. GCS verbalsubscore is 5. GCS motor subscore is 6. Skin: Skin is warm and dry. He is not diaphoretic. Nursing note and vitals reviewed. ED Course as of Jul 26 58 Time: 07/26 56 Comment: Rechecked patient. Condition is improved. Discussed with the patient the plan of care and diagnosis. Discussed the results of ED findings, and the plan for discharge. Recommended follow up with PCP or return to ED if symptoms worsen or do not improve over time. Patient understands and agrees with plan. All other questions have been addressed By: Abelardo Johnson, DO BP 120/87 (BP Location: Right arm, Patient Position: Sitting) Pulse 68 Temp 36.6 ??C (97.9 ??F)(Oral) Resp 18 Ht 185.4 cm (6' 1 ) Wt 99.8 kg (220 lb) SpO2 98% BMI 29.03 kg/m?? Labs Reviewed URINALYSIS AND REFLEX TO MICROSCOPIC AND CULTURE Result Value Color, ur Yellow Clarity, ur Clear Specific gravity, ur 1.014 pH, urine 5.0 Protein, ur ql Negative Glucose, ur ql Negative Ketones, ur Negative Bilirubin, ur Negative Blood, ur Negative Urobilinogen, ur <2.0 Nitrite, ur Negative Leukocyte esterase, ur Negative Narrative: Urine pH is affected by diet, medications, systemic acid-base disturbances, and renal tubular function. pH may affect urinary stone formation. For example, urine pH below 6.0 may help reduce the tendency for calcium phosphate stones and pH greater than 6.0 may reduce the tendency for uric acid stone formation. Source: [employer].Last revised 06-13-2017 No orders to display Procedures MDM Number of Diagnoses or Management Options Chronic right-sided low back pain, with sciatica presence unspecified: Right low back pain, unspecified chronicity, with sciatica presence unspecified: Amount and/or Complexity of Data Reviewed Clinical lab tests: ordered and reviewed Review and summarize past medical records: yes Patient Progress Patient progress: stable CLINICAL IMPRESSION: 1. Right low back pain, unspecified chronicity, with sciatica presence unspecified 2. Chronic right-sided low back pain, with sciatica presence unspecified PATIENT DISCHARGED ATTESTATIONS: This note is prepared by Yomaira Lawson, acting as a scribe for Abelardo oJhnson DO. I electronically signed this note at 12:36 AM on 07/26/2018. I, Abelardo Johnson DO, have personally performed the services described in the documentation , reviewed the documentation, as recorded by the scribe in my presence, and it accurately and completely records my words and actions. Abelardo Johnson DO 07/26/18 0100 [employer] TECHNICAL documented in this encounter Plan of Treatment Not on file documented as of this encounter Procedures Procedure Name Priority Date/Time Associated Diagnosis Comments URINALYSIS AND REFLEX TO MICROSCOPIC AND CULTURE STAT 07/25/2018 10:18 PM ELECTRONIC WARFARE TECHNICAL documented in this encounter Results * Urinalysis reflex to microscopic and culture Urine (07/25/2018 10:18 PM ELECTRONIC WARFARE TECHNICAL) Color, ur Yellow Yellow [facility]ERNER [facility] Clarity, ur Clear Clear [facility]ERNER [facility] Specific gravity, ur 1.014 1.010 - 1.025 CERNER CH pH, urine 5.0 [facility]ER [facility] Protein, ur ql Negative Negative [facility] Glucose, ur ql Negative Negative [facility] Ketones, ur Negative Negative [facility] Bilirubin, ur Negative Negative [facility] Blood, ur Negative Negative [facility] Urobilinogen, ur <2.0 <2.0 mg/dL [facility]ERNER [facility] Nitrite, ur Negative Negative [facility] CH Leukocyte esterase, ur Negative Negative [facility]ERNER CH Urine 07/25/2018 10:1 8 PM ELECTRONIC WARFARE TECHNICAL 07/25/2018 10:56 PM ELECTRONIC WARFARE TECHNICAL Narrative CERNER CH - 07/25/2018 11:25 PM ELECTRONIC WARFARE TECHNICAL ?? Urine pH is affected by diet, medications, systemic acid-base disturbances, and renal tubular function. ??pH may affect urinary stone formation. ??For example, urine pH below 6.0 may help reduce the tendency for calcium phosphate stones and pH greater than 6.0 may reduce the tendency for uric acid stone formation. Source: [employer]. Last revised 06-13-2017 us Abelardo Johnson DO LAB MICROBIOLOGY - GENERAL ORD ERABLES Final Result [facility] [address] [address] [place] [address] documented in this encounter Visit Diagnoses Diagnosis Right low back pain, unspecified chronicity, with sciatica presence unspecified- Primary Chronic right-sided low back pain, with sciatica presence unspecified documented in this encounter Administered Medications Inactive Administered Medications - up to 3 most recent administrations Medication Order MAR Action Action Date Dose Rate Site diazePAM (VALIUM) tablet 5 mg 5 mg, oral, Once, On Sat07/25/18 at 2353, For 1 dose Given 07/26/2018 12:24 AM ELECTRONIC WARFARE TECHNICAL 5 mg HYDROmorphone (DILAUDID) injection 1 mg 1 mg, intravenous, Administer over 2 Minutes, Once, On Sat07/25/18 at 2353, For 1 dose, Indications: PainIndications:Pain Given 07/26/2018 12:25 AM ELECTRONIC WARFARE TECHNICAL 1 mg ketorolac (TORADOL) injection 30 mg 30 mg, intravenous, Once, On Sat07/25/18 at 2353, For 1 dose, For Adult IV push, administer over 15 seconds, Indications: PainIndications:Pain Given 07/26/2018 12:25 AM ELECTRONIC WARFARE TECHNICAL 30 mg methylPREDNISolone sodium succinate (SOLU-medrol) preservative free injection 125 mg 125 mg, intravenous, Administer over 3 Minutes, Once, On Sat07/25/18 at 2353, For 1 dose, Administer 125 mg or less over 3 minutes Given 07/26/2018 12:25 AM ELECTRONIC WARFARE TECHNICAL 125 mg sodium chloride 0.9% bolus 1,000 mL 1,000 mL, intravenous, at 1,000 mL/hr, Administer over 1 Hours, Once, On Sat07/25/18 at 2353, For 1 dose New Bag 07/26/2018 12:25 AM ELECTRONIC WARFARE TECHNICAL 1,000 mL 1000 mL/hr documented in this encounter Active and Recently Administered Medications Times are shown in ELECTRONIC WARFARE TECHNICAL. Scheduled Medication Order 07/24/2018 07/25/2018 07/26/2018 diazePAM (VALIUM) tablet 5 mg (COMPLETED) 5 mg, oral, Once, On Sat07/25/18 at 2353, For 1 dose 0024 (Given - Provid er: Deanne Wooten, GAY) HYDROmorphone (DILAUDID) injection 1 mg (COMPLETED) 1 mg, intravenous, Administer over 2 Minutes, Once, On Sat07/25/18 at 2353, For 1 dose, Indications: Pain 0025 (Given - Provid er: Deanne Wooten RN) ketorolac (TORADOL) injection 30 mg (COMPLETED) 30 mg, intravenous, Once, On Sat07/25/18 at 2353, For 1 dose, For Adult IV push, administer over 15 seconds, Indications: Pain 0025 (Given - Provid er: Deanne Wooten RN) methylPREDNISolone sodium succinate (SOLU-medrol) preservative free injection 125 mg (COMPLETED) 125 mg, intravenous, Administer over 3 Minutes, Once, On Sat07/25/18 at 2353, For 1 dose, Administer 125 mg or less over 3 minutes 0025 (Given - Provid er: Deanne Wooten RN) sodium chloride 0.9% bolus 1,000 mL (COMPLETED) 1,000 mL, intravenous, at 1,000 mL/hr, Administer over 1 Hours, Once, On Sat07/25/18 at 2353, For 1 dose 0025 (New Bag - Prov ider: Deanne Wooten RN)[id number] (Stopped - Provider: Deanne Wooten RN) documented in this encounter Care Teams Corporate Counselor Relationship Specialty [place] [address] [facility] [address] [place] [address] Rheumatology 02/21/17 Lashay Downs, RN Registered Nurse Pain Management 06/17/17 Duke Do, GAY Registered Nurse 09/09/17 documented as of this encounter
--- OUTSIDE RECORDS SUMMARY | 2024-06-14 16:51 | XMS_ITS | Encounter Summary ---
Author Organization [facility] Healthcare Address [address] [place] [address] Care Team Providers Care Pharmacy Operations Specialist Name Role Phone Criss Blanco MD Unavailable Lashay Downs RN Unavailable Unavailab Duke Goodwin RN Unavailable Unavailabl e Reason for Visit * Reason Comments PT Treatment Encounter Details Date Type Department Care Team (Late st Contact Info) Description 08/18/2018 9:45 AM CDT Therapy [facility] Physical Therapy [address] [facility] [place] [address] Samuel Rubio, PT Lumbar spondylosis (Primary Dx) Social History Tobacco Use Types Packs/Day Years Used Date Smoking Tobacco: Former Cigarettes 2 30 Smokeless Tobacco: Never Comments:Smoking History Pac ks/day: 2 Packs Alcohol Use Standard Drinks/Week Comments Yes 2 (1 standard drink = 0.6 oz pur e alcohol) Sex and Gender Information Value Date Recorded Sex Assigned at Not on file 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 He has found good relief with modality application recently and has continued to supplement formal treatment with stabilization and alternative movement strategies. As she comes todayshe concludes his final scheduled visit and is pleased with his progress at this point he feels as though he is able to manage his situation withmovement exercise and rest Pain: 07/13 Objective:He continues to have localized protective spasm in the right para lumbar musculature. Neurologic screen shows a reducedright knee jerk reflex he has no unilateral weaknessasymmetrically upon muscle testing of the distal lower extremity. He has no provocation with passive leg raise and today is able to reproduce prescribed activities without cueing or correction. Treatment Provided: He was seen today for the application of moist heat in conjunction to bipolar stimulation to the right lumbar region followed by passive stretching to his low back and lower extremities He continues independently a comprehensive program of lumbar flexibility core stabilization lower extremity flexibility andalternative movement training. Today we discussed indications for pursuing independent exercise in health club setting possibly water exercise in concert with general cardiovascular training and core continued core strengthening Assessment: He has met initial treatment objectives he has been actively involved in his care and is improved at this point. We discussed today realistic expectations going forward and he has remained open and involved in his care Plan: He will be discharged from formal service with requested to continue and call with any questions relative to his exercise regimen prior to physician followup Start Time: 9:45 End Time:10:25 Samuel Rubio PT documented in this encounter Plan of Treatment Not on file documented as of this encounter Visit Diagnoses Diagnosis Lumbar spondylosis- Primary Lumbosacral spondylosis without myelopathy documented in this encounter Care Teams Pharmacy Operations Specialist Relationship Specialty [place] [address] [facility] [address] [place] [address] Rheumatology 02/21/17 Lashay Downs, GAY Registered Nurse Pain Management 06/17/17 Duke Do, RN Registered Nurse 09/09/17 documented as of this encounter
--- OUTSIDE RECORDS SUMMARY | 2024-06-14 16:51 | XMS_ITS | Encounter Summary ---
Author Organization [facility] Healthcare Address [address] [place] [address] Care Team Providers Care Turbine Blade Assembler Name Role Phone Criss Blanco MD Unavailable Lashay Downs RN Unavailable Unavailab Duke Goodwin RN Unavailable Unavailabl e Reason for Visit * Reason Comments PT Treatment Encounter Details Date Type Department Care Team (Late st Contact Info) Description 08/08/2018 10:45 AM TRESTLE MECHANIC Therapy [facility] Physical Therapy [address] [facility] [place] [address] Ara Avery PTA Lumbar spondylosis (Primary Dx) Social History Tobacco Use Types Packs/Day Years Used Date Smoking Tobacco: Former Cigarettes 2 30 Smokeless Tobacco: Never Comments:Smoking History Pac ks/day: 2 Packs Alcohol Use Standard Drinks/Week Comments Yes 2 (1 standard drink = 0.6 oz pur e alcohol) Sex and Gender Information Value Date Recorded Sex Assigned at Not on file Legal Sex Male 12:56 AM 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 MECHANIC Gender Identity Not on file Sexual Orientation Not on file documented as of this encounter Progress Notes * Ara Avery PTA - 08/08/2018 10:45 AM CST PT Daily Treatment Note Samuel Sanchez 1945 Subjective: Pain: 5/10 right low back before treatment 0/10 after treatment Objective: Palpation reveals diffuse tenderness throughout the right low back region Treatment Provided: He was seen today for the application of moist heat in conjunction to bipolar stimulation to the right lumbar regio followed by passive stretching to his low back and lower extremities His HEP was also reviewed Assessment: He continues to be receptive to the current treatment program He is taking an active role in his HEP His pain is diminished after his treatment Plan: continue progressing as ordered Start Time: 10:45 End Time:11:25 Ara Avery PTA TLE MECHANIC documented in this encounter Plan of Treatment Not on file documented as of this encounter Visit Diagnoses Diagnosis Lumbar spondylosis- Primary Lumbosacral spondylosis without myelopathy documented in this encounter Care Teams Turbine Blade Assembler Relationship Specialty [place] [address] [facility] [address] [place] [address] Rheumatology 02/21/17 Lashay Downs, RN Registered Nurse Pain Management 06/17/17 Duke Do, RN Registered Nurse 09/09/17 documented as of this encounter
--- OUTSIDE RECORDS SUMMARY | 2024-06-14 16:51 | XMS_ITS | Encounter Summary ---
Author Organization [facility] Address [address] [place] [address] Care Team Providers Care Key Entry Operator Name Role Phone Criss Blanco MD Unavailable Lashay Downs RN Unavailable Unavailab Duke Goodwin RN Unavailable Unavailabl e Reason for Referral * (Routine) - Closed Specialty Diagnoses / Procedures Referred By Contac t Referred To Contact Diagnoses Encounter for other preprocedural examination Procedures ECG 12 lead Viraj Romeo PA Phone: tel: fax: [address] [phone] Referral ID Status Reason Start Date Expiration Date Visits Re quested Visits Authorized [id number] Closed 01/06/2019 07/17/2020 1 1 Reason for Visit * (Routine) - Closed Specialty Diagnoses / Procedures Referred By Contac t Referred To Contact Diagnoses Encounter for other preprocedural examination Procedures ECG 12 lead Viraj Romeo PA Phone: tel: fax: [address] [phone] Referral ID Status Reason Start Date Expiration Date Visits Re quested Visits Authorized [id number] Closed 01/06/2019 07/17/2020 1 1 Encounter Details Date Type Department Care Team (Late st Contact Info) Description 01/06/2019 8:45 AM CDT - 01/06/2019 11:59 PM CDT Hospital Encounter [facility] Cardiology [address] [place] [address] Ariel Wiggins MD [address] [facility] NEHAL Gordon [address] [place] [address] Viraj Romeo PA [address] [place] [address] Encounter for other preprocedural examination Discharge Disposition: Discharge to home or self [...] file 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 10 tablet 07/26/2018 9 folic acid (FOLVITE) 1 mg tabletIndication s:Folate Deficiency Take 1 mg by mouth every morning 9 glucosamine-yfn droitin 250-200 mg tablet Take by mouth. 9 HYDROcodone-acet aminophen (NORCO) 10-325 mg per tabletIndication s:Lower Back Pain,Pain Take 1 tablet by mouth 3 (three) times a day as needed for pain. 90 tablet 10/04/2017 9 HYDROcodone-acet aminophen (NORCO) 10-325 mg per tabletIndication s:Pain Take 1 tablet by mouth every 6 (six) hours as needed for pain. 20 tablet 04/21/2018 9 meloxicam (MOBIC) 15 mg tablet Take 1 tablet (15 mg total) by mouth daily. Do not take with other NSAIDs 90 tablet 1 07/28/2018 9 methotrexate 2.5 mg tabletIndication s:Rheumatoid Arthritis,8 tabs weekly Take 20 mg by mouth once a week 9 methylPREDNISolo ne (MEDROL DOSEPACK) 4 mg Dosepack Take as directed. 21 tablet 07/26/2018 9 methylPREDNISolo ne (MEDROL, RADHA,) 4 mg Dosepack follow package directions 21 tablet 07/28/2018 9 multivitamin-Ca- iron-minerals 18-0.4 mg tabletIndication s:Mineral Deficiency Prevention,Vitam in Deficiency Prevention Take 1 tablet by mouth every morning 0 omeprazole (PriLOSEC) 20 mg capsule Take 20 mg by mouth daily. 9 oxyCODONE-acetam inophen (PERCOCET) 5-325 mg per tabletIndication s:Pain Take 1 tablet by mouth every 6 (six) hours as needed for pain. 10 tablet 07/26/2018 9 potassium 99 mg tablet Take by mouth. 9 ranitidine (ZANTAC) 300 mg capsuleIndicatio ns:gastroesophag eal reflux disease Take 300 mg by mouth nightly 0 tamsulosin (FLOMAX) 0.4 mg capsule,extended release 24hr TAKE ONE CAPSULE BY MOUTH EVERY DAY 30 capsule 4 01/28/2017 9 tiZANidine (ZANAFLEX) 2 mg tablet Take 1 tablet (2 mg total) by mouth every 6 (six) hours as needed for muscle spasms. 15 tablet 05/16/2017 9 documented as of this encounter Discharge Disposition Disposition Code Departure Means Destination Discharge to home or self care documented in this encounter Plan of Treatment Not on file documented as of this encounter Procedures Procedure Name Priority Date/Time Associated Diagnosis Comments ECG 12-LEAD Routine 01/06/2019 1:42 PM CDT Encounter for other preprocedural examination documented in this encounter Results * ECG 12 lead (01/06/2019 1:42 PM CDT) 01/06/2019 9:12 AM CDT Narrative [facility] - 01/06/2019 9:48 PM CDT Vent Rate: 57 bpm RR Interval: 1048 msec LA Interval: 186 msec QRS Duration: 90 msec QT Interval: 396 msec QTC Interval: 390 msec P-R-T [place]: 23 - 4 - 58 degrees SINUS BRADYCARDIA NONSPECIFIC T-WAVE ABNORMALITY BORDERLINE ECG Electronically Signed By: Juan R Muñiz MD us Viraj CUMMINGS ECG ORDERABLES Final Result [facility] documented in this encounter Visit Diagnoses Diagnosis Encounter for other preprocedural examination documented in this encounter Care Teams Key Entry Operator Relationship Specialty [place] [address] [facility] [address] [place] [address] Rheumatology 02/21/17 Lashay Downs, RN Registered Nurse Pain Management 06/17/17 Duke Do, RN Registered Nurse 09/09/17 documented as of this encounter
--- OUTSIDE RECORDS SUMMARY | 2024-06-14 16:51 | XMS_ITS | Encounter Summary ---
Author Organization [facility] Healthcare Address [address] [place] [address] Care Team Providers Care Trench Digging Machine Operator Name Role Phone Criss Blanco MD Unavailable Lashay Downs RN Unavailable Unavailab Duke Goodwin RN Unavailable Unavailabl e Encounter Details Date Type Department Care Team (Late st Contact Info) Description 01/22/2019 Ancillary Procedure [facility] Social History Tobacco Use Types Packs/Day Years Used Date Smoking Tobacco: Former Cigarettes 2 30 Smokeless Tobacco: Never Comments:Smoking History Pac ks/day: 2 Packs Alcohol Use Standard Drinks/Week Comments Yes 2 (1 standard drink = 0.6 oz pur e alcohol) Sex and Gender Information Value Date Recorded Sex Assigned at Not on file 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 us Not In File Miscellaneous IMG NM PROCEDURES Mariaa l Result [facility] documented in this encounter Visit Diagnoses Not on filedocumented in this encounter Care Teams Trench Digging Machine Operator Relationship Specialty [place] [address] [facility] [address] [place] [address] Rheumatology 02/21/17 Lashay Downs, RN Registered Nurse Pain Management 06/17/17 Duke Do, RN Registered Nurse 09/09/17 documented as of this encounter
--- OUTSIDE RECORDS SUMMARY | 2024-06-14 16:51 | XMS_ITS | Encounter Summary ---
Author Organization [facility] Address [address] [place] [address] Care Team Providers Care Gis Administrator Name Role Phone Criss Blanco MD Unavailable Lashay Downs RN Unavailable Unavailab Duke Goodwin RN Unavailable Unavailabl e Reason for Visit * Reason Comments Vomiting Nausea Diarrhea Abdominal Pain Encounter Details Date Type Department Care Team (Late st Contact Info) Description 05/19/2018 7:04 PM BATT PACKER - 05/20/2018 2:48 AM BATT PACKER Emergency [facility] Emergency Department [address] [place] [address] Kevin Blackwell MD [facility] [place] [address] Colitis (Primary Dx); Viral gastroenteritis; Renal stone; Gastroenteritis and colitis, viral Discharge Disposition: Discharge to home or self [...] on file Legal Sex Male 12:56 AM BATT PACKER Gender Identity Not on file Sexual Orientation Not on file documented as of this encounter Last Filed Vital Signs Vital Sign Reading Time Taken Comments Blood Pressure 113/80 05/19/2018 7:16 PM BATT PACKER Pulse 82 05/19/2018 7:16 PM BATT PACKER Temperature 36.7 ??C (98 ??F) 05/19/2018 7:16 PM BATT PACKER Respiratory Rate 18 05/19/2018 7:16 PM BATT PACKER Oxygen Saturation 96% 05/19/2018 7:16 PM BATT PACKER Inhaled Oxygen Concentration - - Weight 102.1 kg (225 lb) 05/19/2018 7:16 PM BATT PACKER Height 185.4 cm (6' 1 ) 05/19/2018 7:16 PM BATT PACKER Body Mass Index 29.69 05/19/2018 7:16 PM BATT PACKER documented in this encounter Discharge Instructions * Attachments The following attachments cannot be sent through Care Everywhere. * Enteritis (Seasoner) (Estonian) * Kidney Stone w/ Colic (Estonian) documented in this encounter Medications at Time of Discharge metroNIDAZOLE (FLAGYL) 500 mg tablet Take 1 tablet (500 mg total) by mouth 2 (two) times a day for 14 days. 28 tablet 05/20/2018 06/03/2018 oxyCODONE-acetam inophen (PERCOCET) 5-325 mg per tabletIndication s:Pain Take 1-2 tablets by mouth every 4 (four) hours as needed for pain (1 tablet for mild to moderate pain or 2 tablets for severe pain) for up to 7 days. 20 tablet 05/20/2018 05/27/2018 biotin 10,000 mcg capsuleIndicatio ns:supplement Take 1 capsule by mouth every morning 06/30/2019 folic acid (FOLVITE) 1 mg tabletIndication s:Folate Deficiency Take 1 mg by mouth every morning 05/29/2019 HYDROcodone-acet aminophen (NORCO) 10-325 mg per tabletIndication s:Lower Back Pain,Pain Take 1 tablet by mouth 3 (three) times a day as needed for pain. 90 tablet 10/04/2017 01/30/2019 HYDROcodone-acet aminophen (NORCO) 10-325 mg per tabletIndication s:Pain Take 1 tablet by mouth every 6 (six) hours as needed for pain. 20 tablet 04/21/2018 02/06/2019 multivitamin-Ca- iron-minerals 18-0.4 mg tabletIndication s:Mineral Deficiency Prevention,Vitam in Deficiency Prevention Take 1 tablet by mouth every morning 06/30/2019 omeprazole (PriLOSEC) 20 mg capsule Take 20 mg by mouth daily. 02/06/2019 ranitidine (ZANTAC) 300 mg capsuleIndicatio ns:gastroesophag eal [...] Refills Last Filled Start Date End Date metroNIDAZOLE (FLAGYL) 500 mg tablet Take 1 tablet (500 mg total) by mouth 2 (two) times a day for 14 days. 28 tablet 05/20/2018 9 oxyCODONE-acetamin ophen (PERCOCET) 5-325 mg per tabletIndications: Pain Take 1-2 tablets by mouth every 4 (four) hours as needed for pain (1 tablet for mild to moderate pain or 2 tablets for severe pain) for up to 7 days. 20 tablet 05/20/2018 8 documented in this encounter Discharge Disposition Disposition Code Departure Means Destination Discharge to home or self care documented in this encounter ED Notes * Kevin Blackwell MD - 05/19/2018 11:20 PM CST HPI Chief Complaint Patient presents with ??? Vomiting ??? Nausea ??? Diarrhea ??? Abdominal Pain [address] Sanchez is a 72 y.o M with h/o acid reflux, bisept tendinitis, arthritis, who presents to the ED c/o N/V/D onset 3 days ago. Pt states that he had 30 episodes of diarrhea and has intermittent abdominal pains subjective to emesis and diarrhea. He also reports of chills and headaches. He denies hematemesis, neck stiffness, and photophobia. Per pt he is not on any new medication or blood thinners. No other complaints were expressed at this time. Patient History Patient Active Problem List Diagnosis Date Noted ??? 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 Seropositive rheumatoid arthritis of multiple sites ([facility]) 07/03/2011 Class: Chronic ??? Shortness of breath 12/26/2010 Class: Chronic ??? Headache 12/22/2009 Class: Chronic Past Medical History: Diagnosis Date ??? Arthritis arthritis ??? Calculus of kidney Nephrolithiasis ??? Gastroesophageal reflux disease acid reflux ??? History of multiple allergies allergies ??? HX OTHER MEDICAL 1981 L shoulder ??? HX OTHER MEDICAL 1982 R shoulder ??? HX OTHER MEDICAL 1985 R shoulder bone spurs ??? HX OTHER MEDICAL 1962 ear drum patch ??? HX OTHER MEDICAL 1977 testicle ??? HX OTHER MEDICAL Headache, migraine ??? HX OTHER MEDICAL 1980 Bisept tendonitis ??? HX OTHER MEDICAL 1993 Pinched Prostate ??? HX OTHER MEDICAL 2000 kidney stone ??? HX OTHER MEDICAL hemorroids; Comments: Had done at [facility] in [place] ??? HX OTHER MEDICAL bladder infection ??? HX OTHER MEDICAL kidney stone ??? Malignant neoplasm of prostate ([facility]) 1998 prostate Past Surgical History: Procedure Laterality Date ??? OTHER SURGICAL HISTORY Bisept tendonitis: Surgically repaired ??? OTHER SURGICAL HISTORY 1988 removal of bone spurs Rt shoulder ??? OTHER SURGICAL HISTORY Pinched Prostate: surgically repaired Family History Problem Relation Age of Onset ??? Diabetes Father Diabetes mellitus; /Diabetes mellitus; ??? Other Other adopted ??? Other Other adopted Social History Substance Use Topics ??? Smoking status: Former Smoker Packs/day: 2.00 Years: 30.00 Types: Cigarettes ??? Smokeless tobacco: Never Used Comment: Smoking History Packs/day: 2 Packs ??? Alcohol use 1.2 oz/week 2 Shots of liquor per week Social History Social History Narrative ??? No narrative on file Review of Systems Review of Systems Constitutional: Positive for chills. Negative for fatigue and fever. HENT: Negative for congestion, ear pain, rhinorrhea, sneezing and sore throat. Eyes: Negative for photophobia. Respiratory: Negative for cough, shortness of breath and wheezing. Cardiovascular: Negative for chest pain and palpitations. Gastrointestinal: Positive for abdominal pain, diarrhea, nausea and vomiting. Negative for constipation. Musculoskeletal: Negative for arthralgias, back pain, neck pain and neck stiffness. Skin: Negative for rash and wound. Neurological: Negative for dizziness, syncope, weakness, light-headedness and headaches. All other systems reviewed and are negative. Physical Exam ED Triage Vitals [05/19/181915] Temp Pulse Resp BP SpO2 36.7 ??C (98 ??F) 82 18 113/80 96 % Temp src Heart Rate Source Patient Position BP Location FiO2 (%) Temporal -- -- -- -- Physical Exam Vitals: 05/19/181915 BP: 113/80 Pulse: 82 Resp: 18 Temp: 36.7 ??C (98 ??F) TempSrc: Temporal SpO2: 96% Weight: 102.1 kg (225 lb) Height: 185.4 cm (6' 1 ) Labs Reviewed CBC WITH AUTO DIFFERENTIAL - Abnormal Result Value WBC 4.8 Hgb 15.6 Hct 46.0 Plt 126 (*) MPV 10.6 RBC 5.03 MCV 91.5 MCH 31.0 MCHC 33.9 RDW CV 13.4 RDW SD 44.2 NRBC Abs 0.00 Narrative: DIFFERENTIAL AUTO - Abnormal Neutrophil absolute 3.6 Immature granulocyte absolute 0.0 Lymphocytes absolute 0.4 (*) Monocyte absolute 0.6 Eosinophils absolute 0.2 Basophils, abs 0.0 Neutrophils 75.0 Immature granulocytes 0.2 Lymphocytes 9.1 Monocytes 11.8 Eosinophils 3.3 Basophils 0.6 Narrative: INFLUENZA A/B ANTIGEN Influenza A Ag Negative Influenza B Ag Negative Narrative: BLOOD CULTURE Report Value: Final Report: No growth Narrative: 1. Blood cultures are incubated for 5 days on a continuously monitored blood culture system. The first report of a negative culture is issued within 24 hours of receipt of the specimen in the laboratory. 2. Positive culture results are reported as soon as they are detected. 3. The most important factor for detection of microbes in the setting of bloodstream infection is the volume of blood submitted for culture. Failure to collect an optimal blood volume can result in false negative blood cultures. For pediatric patients, the recommended blood volume to collect is 1 mL of blood per year of patient age (up to 20 mL) per blood culture set. For adult patients, 20 mL of blood, divided equally between aerobic and anaerobicblood culture bottles, is recommended for each blood culture set. 4. For blood cultures with Gram-positive cocci, a rapid molecular test for organism identification may be performed using the Verigene Gram-Positive Blood Culture Assay. This assay detects microbial DNA in positive blood culture broth via hybridization of target DNA to capture oligonucleotides on a microarray. This assay has been cleared by the [place] Food and Drug Administration and its performance characteristics have been verified by the [facility]. 5. For questions about this culture, contact the Microbiology Laboratory at [phone]. Interpretive data was last revised on 2018. BLOOD CULTURE Report Value: Final Report: No growth Narrative: 1. Blood cultures are incubated for 5 days on a continuously monitored blood culture system. The first report of a negative culture is issued within 24 hours of receipt of the specimen in the laboratory. 2. Positive culture results are reported as soon as they are detected. 3. The most important factor for detection of microbes in the setting of bloodstream infection is the volume of blood submitted for culture. Failure to collect an optimal blood volume can result in false negative blood cultures. For pediatric patients, the recommended blood volume to collect is 1 mL of blood per year of patient age (up to 20 mL) per blood culture set. For adult patients, 20 mL of blood, divided equally between aerobic and anaerobicblood culture bottles, is recommended for each blood culture set. 4. For blood cultures with Gram-positive cocci, a rapid molecular test for organism identification may be performed using the Verigene Gram-Positive Blood Culture Assay. This assay detects microbial DNA in positive blood culture broth via hybridization of target DNA to capture oligonucleotides on a microarray. This assay has been cleared by the [place] Food and Drug Administration and its performance characteristics have been verified by the [facility]. 5. For questions about this culture, contact the Microbiology Laboratory at [phone]. Interpretive data was last revised on 2018. COMPREHENSIVE METABOLIC PANEL Sodium 142 Potassium, pl 3.9 Chloride 104 CO2 28 Anion Gap 10 BUN 20 Creatinine 1.08 Glucose 111 Calcium 9.3 Bilirubin, total 0.8 Protein, pl 7.1 Albumin 4.4 Alk phos 67 ALT 15 AST 17 Narrative: LACTATE Lactate 0.9 Narrative: EGFR GFR 67 Narrative: CT Abdomen Pelvis W Contrast Final Result 1. PERSISTENT 4 MM DISTAL RIGHT URETER STONE ALTHOUGH HYDROURETERONEPHROSIS ON THE RIGHT HAS C4 IMPROVED COMPARED WITH THE PRIOR EXAMINATION. THERE IS PERSISTENT LEFT LOWER POLE HYDRONEPHROSIS. NONOBSTRUCTING STONES WITHIN THE KIDNEYS PERSIST. 2. DEVELOPMENT OF MILD SPLENOMEGALY. 3. OTHER NONACUTE FINDINGS ABOVE. REPORT BY NAUN BOONE FOR VIRTUAL RADIOLOGY 05/20/2018 AT 2:17 AM. Electronically signed by: Luis Michaud M.D Constitutional: Non-toxic. Normal healthy strong male Pleasant. Well-developed; well-nourished. In no acute distress. Head: Normocephalic. Atraumatic. Eyes: Pupils are normal. EOM intact. Conjunctiva are clear bilaterally. ENT: Mucous membranes are pink/moist. No rhinorrhea. TM's and canals are normal bilaterally. Pharynx is normal without tonsillar hypertrophy, erythema, or exudates. Neck: Neck is supple. Normal ROM. No adenopathy. No JVD. Cardiovascular: Regular rate and rhythm. No murmur. Respiratory: No respiratory distress. Good air flow. Breath sounds are clear to auscultation. No wheezes. Airway is patent. Abdomen: Non-distended. Diffused tenderness. No guarding, rebound, or referral. No tympany. Hyperactive Bowel sounds. Musculoskeletal: Extremities are non-tender to palpation with normal ROM. No peripheral edema. No calf tenderness. No deformities. Equal peripheral pulses. No flank pain on percussion. Skin: Extremities are cool and dry. Good capillary refill, less than 2 seconds. No rashes or lesions on visualized portions of skin. Neuro: Patient is awake, alert, and oriented x3. Face is symmetric; no droop. Speech is clear and fluent. Exam is non-focal. Procedures [facility] ED Course as of May 25 2041 Time: 05/20 224 Comment: CT read as 4 mm distal right stone, but improved hydronephosis. Pt had stone initally lastmo. Pt has had 7 stones this year, Has urologist to f/o. Discussed in detail By: Kevin Blackwell MD Colitis Viral gastroenteritis Renal stone Gastroenteritis and colitis, viral This note was prepared by Divina Bunn, acting as a Scribe for Kevin Blackwell MD. I electronically signed this note at 8:41 PM on 05/25/2018. I, Kevin Blackwell MD, have personally performed the services described in the documentation, reviewed the documentation, as recorded by the scribe in my presence, and it accurately and completelyrecords my words and actions. Kevin Blackwell MD 05/25/182040 PACKER * Leana De La Fuente, RN - 05/19/2018 7:16 PM CST 72 year old male presents to the Ed with complaints of N/V/D for the last 3 days. Pt states he is unable to keep anything down, has complaints of abd pain intermittent. Pt states he has had his flu shot. PACKER documented in this encounter Plan of Treatment Not on file documented as of this encounter Procedures Procedure Name Priority Date/Time Associated Diagnosis Comments CT ABDOMEN PELVIS W CONTRAST ED 05/20/2018 1:12 AM BATT PACKER LACTATE STAT 05/19/2018 7:46 PM BATT PACKER EGFR STAT 05/19/2018 7:46 PM BATT PACKER DIFFERENTIAL AUTO STAT 05/19/2018 7:4 6 PM BATT PACKER CBC WITH AUTO DIFFERENTIAL STAT 05/19/2018 7:46 PM BATT PACKER BLOOD CULTURE STAT 05/19/2018 7:46 PM BATT PACKER BLOOD CULTURE STAT 05/19/2018 7:46 PM BATT PACKER COMPREHENSIVE METABOLIC PANEL STAT 05/19/2018 7:46 PM BATT PACKER INFLUENZA A/B ANTIGEN STAT 05/19/2018 7:20 PM BATT PACKER documented in this encounter Results * CT Abdomen Pelvis W Contrast (05/20/2018 1:12 AM BATT PACKER) Anatomical Region Laterality Modality Body N/A Computed Tomogra phy 05/20/2018 7:08 AM BATT PACKER Impressions 05/20/2018 7:24 AM BATT PACKER 1. ??PERSISTENT 4 MM DISTAL RIGHT URETER STONE ALTHOUGH HYDROURETERONEPHROSIS ON THE RIGHT HAS C4 IMPROVED COMPARED WITH THE PRIOR EXAMINATION. ??THERE IS PERSISTENT LEFT LOWER POLE HYDRONEPHROSIS. ??NONOBSTRUCTING STONES WITHIN THE KIDNEYS PERSIST. 2. ??DEVELOPMENT OF MILD SPLENOMEGALY. 3. ??OTHER NONACUTE FINDINGS ABOVE. REPORT BY NAUN BOONE FOR VIRTUAL RADIOLOGY 05/20/2018 AT 2:17 AM. Electronically signed by: Antelmo Travis 05/20/2018 7:[address] ABDOMEN PELVIS W CONTRAST HISTORY: Abd [...] by: Luis Michaud M.D Kevin Blackwell MD IM CT PROCEDURES Final Res ult * eGFR (05/19/2018 7:46 PM BATT PACKER) eGFR 67 mL/min/1.7 3 m2 ANDRE MORAES (BRE) Comment: Interpretive Data Reference Interval Normal ?>/= 90 mL/min/1.73m2 Mildly decreased* ? 60 - 89 mL/min/1.73m2 Mildly to moderately decreased ?45 - 59 mL/min/1.73m2 Moderately to severely decreased ??30 - 44 mL/min/1.73m2 Severely decreased ?15 - 29 mL/min/1.73m2 Kidney Failure ?< 15 ??mL/min/1.73m2 *Relative to young adult level If -[place] multiply value by 1.16. Estimated glomerular filtration rate is determined by the CKD-EPI equation recommended by the National Kidney Foundation (KDIGO 2012 Clinical Practice Guideline for the Evaluation and Management of Chronic Kidney Disease. Kidney Intnl Suppl Jun 2012;3:1). The CKD-EPI equation should not be used for patients with unstable renal function and has not been validated in children and those over 70. Current interpretive data was last reviewed 2015. Blood specimen (specimen) 05/19/2018 7:46 PM BATT PACKER 05/19/2018 7:52 PM BATT PACKER Narrative EMANUELSTEFANIA MORAES (BRE) - 05/19/2018 8:25 PM BATT PACKER us Kevin Blackwell MD LAB BLOOD ORDERABLES Final Result ANDRE MORAES (BRE) 1 [facility] Department [place] [address] * (ABNORMAL) Differential, auto (05/19/2018 7:46 PM BATT PACKER) Neutrophil abs 3.6 1.7 - 6.5 K/cumm ANDRE MORAES ([place]) Imm gran abs 0.0 0.0 - 0.1 K/cumm [facility] (BRE) Lymphocyte abs 0.4(L) 0.8 - 3.3 K/cumm [facility] (BRE) Monocyte abs 0.6 0.2 - 0.8 K/cumm [facility] (BRE) Eosinophil abs 0.2 0.0 - 0.5 K/cumm [facility] (BRE) Basophil abs 0.0 0.0 - 0.1 K/cumm [facility] (BRE) Neutrophil pct 75.0 % [facility] (BRE) Comment: Interpretive Data Percent cell count reference ranges are not reported, since discordance with absolute values may lead to misinterpretation of CBC data. Current Interpretive Data was last revised on 2017. Imm gran pct 0.2 % [facility] (BRE) Comment: Interpretive Data Percent cell count reference ranges are not reported, since discordance with absolute values may lead to misinterpretation of CBC data. Current Interpretive Data was last revised on 2017. Lymphocyte pct 9.1 % [facility] (BRE) Comment: Interpretive Data Percent cell count reference ranges are not reported, since discordance with absolute values may lead to misinterpretation of CBC data. Current Interpretive Data was last revised on 2017. Monocyte pct 11.8 % [facility] (BRE) Comment: Interpretive Data Percent cell count reference ranges are not reported, since discordance with absolute values may lead to misinterpretation of CBC data. Current Interpretive Data was last revised on 2017. Eosinophil pct 3.3 % [facility] (BRE) Comment: Interpretive Data Percent cell count reference ranges are not reported, since discordance with absolute values may lead to misinterpretation of CBC data. Current Interpretive Data was last revised on 2017. Basophil pct 0.6 % [facility] (BRE) Comment: Interpretive Data Percent cell count reference ranges are not reported, since discordance with absolute values may lead to misinterpretation of CBC data. Current Interpretive Data was last revised on 2017. Blood specimen (specimen) 05/19/2018 7:46 PM BATT PACKER 05/19/2018 7:52 PM BATT PACKER Narrative [facility] (BRE) - 05/19/2018 8:17 PM BATT PACKER us Kevin Blackwell MD LAB BLOOD ORDERABLES Final Result ANDRE ANSARI) 1 [facility] Department [place] [address] * Blood culture Blood (05/19/2018 7:46 PM BATT PACKER) Report Final Report: No growth ANDRE ANSARI) Comment:Testing performed by : [facility], [address] [place]., [address] Blood specimen (specimen) 05/19/2018 7:46 PM BATT PACKER 05/19/2018 9:26 PM BATT PACKER Narrative ANDRE ANSARI) - 05/25/2018 7:01 AM BATT PACKER 1. Blood cultures are incubated for 5 days on a continuously monitored blood culture system. The first report of a negative culture is issued within 24 hours of receipt of the specimen in the laboratory. 2. Positive culture results are reported as soon as they are detected. 3. The most important factor for detection of microbes in the setting of bloodstream infection is the volume of blood submitted for culture. Failure to collect an optimal blood volume can result in false negative blood cultures. For pediatric patients, the recommended blood volume to collect is 1 mL of blood per year of patient age (up to 20 mL) per blood culture set. For adult patients, 20 mL of blood, divided equally between aerobic and anaerobic blood culture bottles, is recommended for each blood culture set. 4. For blood cultures with Gram-positive cocci, a rapid molecular test for organism identification may be performed using the Medxnoteigene Gram-Positive Blood Culture Assay. This assay detects microbial DNA in positive blood culture broth via hybridization of target DNA to capture oligonucleotides on a microarray. This assay has been cleared by the [place] Food and Drug Administration and its performance characteristics have been verified by the [facility]. 5. For questions about this culture, contact the Microbiology Laboratory at [phone]. Interpretive data was last revised on 2018. us Kevin Blackwell MD LAB MICROBIOLOGY - GENERAL ORDERABLES Final Result Performing Organization Address City/[facility]/ZIP Co de Phone Number ANDRE MORAES (BRE) 1 [facility] [place] [address] * Blood culture Blood (05/19/2018 7:46 PM BATT PACKER) Report Final Report: No growth ANDRE MORAES (BRE) Comment:Testing performed by : [facility], [address] [place]., [address] Blood specimen (specimen) 05/19/2018 7:46 PM BATT PACKER 05/19/2018 9:26 PM BATT PACKER Narrative ANDRE ANSARI) - 05/25/2018 7:01 AM BATT PACKER 1. Blood cultures are incubated for 5 days on a continuously monitored blood culture system. The first report of a negative culture is issued within 24 hours of receipt of the specimen in the laboratory. 2. Positive culture results are reported as soon as they are detected. 3. The most important factor for detection of microbes in the setting of bloodstream infection is the volume of blood submitted for culture. Failure to collect an optimal blood volume can result in false negative blood cultures. For pediatric patients, the recommended blood volume to collect is 1 mL of blood per year of patient age (up to 20 mL) per blood culture set. For adult patients, 20 mL of blood, divided equally between aerobic and anaerobic blood culture bottles, is recommended for each blood culture set. 4. For blood cultures with Gram-positive cocci, a rapid molecular test for organism identification may be performed using the Medxnoteigene Gram-Positive Blood Culture Assay. This assay detects microbial DNA in positive blood culture broth via hybridization of target DNA to capture oligonucleotides on a microarray. This assay has been cleared by the [place] Food and Drug Administration and its performance characteristics have been verified by the [facility]. 5. For questions about this culture, contact the Microbiology Laboratory at [phone]. Interpretive data was last revised on 2018. Kevin Blackwell MD LAB MICROBIOLOGY - GENERAL ORDERABLES Final Result Performing Organization Address City/[facility]/ZIP Co de Phone Number ANDRE MORAES (BRE) 1 [facility] Department [place] [address] * Lactate (05/19/2018 7:46 PM BATT PACKER) Lactate 0.9 0.7 - 2.0 mmol/L [facility] (BRE) Blood specimen (specimen) 05/19/2018 7:46 PM BATT PACKER 05/19/2018 7:52 PM BATT PACKER Narrative ANDRE MORAES (BRE) - 05/19/2018 8:00 PM BATT PACKER Kevin Blackwell MD LAB BLOOD ORDERABLES Final Result ANDRE MORAES ([place]) 1 [facility] Department [place] [address] * Comprehensive metabolic panel (05/19/2018 7:46 PM BATT PACKER) Sodium 142 135 - 145 mmol/L [facility] (BRE) Potassium, pl 3.9 3.3 - 4.9 mmol/L [facility] (BRE) Chloride 104 97 - 110 mmol/L [facility] (BRE) CO2 28 22 - 32 mmol/L [facility] (BRE) Anion gap 10 2 - 15 mmol/L [facility] (BRE) BUN 20 8 - 25 mg/dL [facility] (BRE) Creatinine 1.08 0.80 - 1.30 mg/dL [facility] (BRE) Glucose 111 70 - 199 mg/dL [facility] (BRE) Comment: Interpretive Data Fasting glucose >/= 126 [...] classification and Diagnosis of Diabetes Diabetes Care 2017;40 (Suppl. 1):S11. Current interpretive data was last revised 2017. Calcium 9.3 8.5 - 10.3 mg/dL [facility] (BRE) Bilirubin, total 0.8 0.1 - 1.2 mg/dL [facility] ([facility]) Protein, pl 7.1 6.5 - 8.5 g/dL [facility] ([facility]) Albumin 4.4 3.5 - 5.0 g/dL [facility] (BRE) Alk phos 67 40 - 130 Units/L [facility] (BRE) ALT 15 7 - 55 Units/L [facility] (BRE) AST 17 10 - 50 Units/L [facility] (BRE) Blood specimen (specimen) 05/19/2018 7:46 PM BATT PACKER 05/19/2018 7:52 PM BATT PACKER Narrative [facility] (BRE) - 05/19/2018 8:25 PM BATT PACKER us Kevin Blackwell MD LAB BLOOD ORDERABLES Final Result [facility] 1 [facility] Department [place] [address] * (ABNORMAL) CBC with auto differential (05/19/2018 7:46 PM BATT PACKER) WBC 4.8 3.8 - 9.9 K/cumm [facility] (BRE) Hgb 15.6 13.0 - 17.5 g/dL [facility] (BRE) Hct 46.0 38.9 - 50.3 % [facility] (BRE) Plt 126(L) 150 - 400 K/cumm [facility] (BRE) MPV 10.6 9.1 - 12.3 fL [facility] (BRE) RBC 5.03 4.30 - 5.80 M/cumm [facility] (BRE) MCV 91.5 81.3 - 96.4 fL [facility] (BRE) MCH 31.0 27.1 - 33.3 pg [facility] (BRE) MCHC 33.9 32.3 - 35.7 g/dL [facility] (BRE) RDW CV 13.4 11.1 - 14.9 % [facility] (BRE) RDW SD 44.2 35.7 - 48.1 fL [facility] (BRE) NRBC abs 0.00 0.00 - 0.01 K/cumm [facility] (BRE) Blood specimen (specimen) 05/19/2018 7:46 PM BATT PACKER 05/19/2018 7:52 PM BATT PACKER Narrative [facility] (BRE) - 05/19/2018 8:17 PM BATT PACKER Kevin Blackwell MD LAB BLOOD ORDERABLES Final Result [facility] (BRE) 1 [facility] [employer] [place] [address] * Influenza A/B Antigen Nasopharyngeal (05/19/2018 7:20 PM BATT PACKER) Influenza A Ag Negative [facility] (BRE) Influenza B Ag Negative [facility] (BRE) Comment: The BD Veritor System for Rapid Detection of Flu A+B is a differentiated test, such that influenza A viral antigens can be distinguished from influenza B viral antigens from a single processed sample using a single device. The test is to be used as an aid in the diagnosis of influenza A and B viral infections. A negative test is presumptive and it is recommended that these results be confirmed by an FDA- cleared influenza A and B molecular assay. Negative test results do not preclude influenza viral infection and should not be used as the sole basis for treatment or other patient management decisions. The test is not intended to detect influenza C antigens. Interpretive data last reviewed 2018 Nasopharyngeal 05/19/2018 7: 20 PM BATT PACKER 05/19/2018 7:23 PM BATT PACKER Narrative [facility] (BRE) - 05/19/2018 7:36 PM BATT PACKER us Kevin Blackwell MD LAB MICROBIOLOGY - GENERAL ORDERABLES Final Result [facility] (BRE) 1 [facility] [employer] [place] [address] documented in this encounter Visit Diagnoses Diagnosis Colitis- Primary Other and unspecified noninfectious gastroenteritis and colitis Viral gastroenteritis Intestinal infection due to other organism, NEC Renal stone Calculus of kidney Gastroenteritis and colitis, viral Intestinal infection due to other organism, NEC documented in this encounter Administered Medications Inactive Administered Medications - up to 3 most recent administrations Medication Order MAR Action Action Date Dose Rate Site cefTRIAXone (ROCEPHIN) 1000 mg in 10 mL sterile water (premix) - ADS Override Pull Starting on Sat05/20/18 at 0207, For 1 dose, FAWN SHARMA: cabinet override cefTRIAXone (ROCEPHIN) sterile water (premix) 1,000 mg 1,000 mg, intravenous, at 120 mL/hr, Administer over 5 Minutes, Every 24 hours scheduled, First dose on Sat05/20/18 at 0900, Indications: Abdominal/Pelvic InfectionIndications:Abdominal/ Pelvic Infection New Bag 05/20/2018 2:05 AM BATT PACKER 1,000 mg ioversol intravenous syringe 100 mL 100 mL, intravenous, Once in imaging, contrast, Starting on Sat05/20/18 at 0056, For 1 dose Given 05/20/2018 12:57 AM BATT PACKER 100 mL ketorolac (TORADOL) injection 30 mg 30 mg, intravenous, Once, On Sat05/19/18 at 2156, For 1 dose, For Adult IV push, administer over 15 seconds Given 05/19/2018 11:06 PM BATT PACKER 30 mg Lactated Ringer's (LR) bolus 1,000 mL 1,000 mL, intravenous, Once, On Sat05/19/18 at 2156, For 1 dose New Bag 05/19/2018 11:04 PM BATT PACKER 1,000 mL metroNIDAZOLE (FLAGYL) tablet 500 mg 500 mg, oral, Once, On Sat05/20/18 at 0141, For 1 dose, Indications: Abdominal/Pelvic InfectionIndications:Abdominal/ Pelvic Infection Given 05/20/2018 2:05 AM BATT PACKER 500 mg ondansetron (ZOFRAN) injection 4 mg 4 mg, intravenous, Administer over 2 Minutes, Once, On Sat05/19/18 at 2157, For 1 dose Given 05/19/2018 11:05 PM BATT PACKER 4 mg documented in this encounter Active and Recently Administered Medications Times are shown in BATT PACKER. Scheduled Medication Order 05/18/2018 05/19/2018 05/20/2018 cefTRIAXone (ROCEPHIN) sterile water (premix) 1,000 mg 1,000 mg, intravenous, at 120 mL/hr, Administer over 5 Minutes, Every 24 hours scheduled, First dose on Sat05/20/18 at 0900, Indications: Abdominal/Pelvic Infection 0205 (New Bag - Provider: Pedro Sharma RN)0207 (Stopped - Provider: Pedro Sharma RN) ketorolac (TORADOL) injection 30 mg (COMPLETED) 30 mg, intravenous, Once, On Sat05/19/18 at 2156, For 1 dose, For Adult IV push, administer over 15 seconds 2306 (Given - Provider: Pedro Sharma RN) Lactated Ringer's (LR) bolus 1,000 mL (COMPLETED) 1,000 mL, intravenous, Once, On Sat05/19/18 at 2156, For 1 dose 2304 (New Bag - Provider: Pedro Sharma RN) 0106 (Stopped - Provider: Pedro Sharma RN) metroNIDAZOLE (FLAGYL) tablet 500 mg (COMPLETED) 500 mg, oral, Once, On Sat05/20/18 at 0141, For 1 dose, Indications: Abdominal/Pelvic Infection 0205 (Given - Provid er: Pedro Sharma RN) ondansetron (ZOFRAN) injection 4 mg (COMPLETED) 4 mg, intravenous, Administer over 2 Minutes, Once, On Sat05/19/18 at 2157, For 1 dose 2305 (Given - Provider: Pedro Sharma RN) PRN Medication Order 05/18/2018 05/19/2018 05/20/2018 ioversol intravenous syringe 100 mL (COMPLETED) 100 mL, intravenous, Once in imaging, contrast, Starting on Sat05/20/18 at 0056, For 1 dose 0057 (Given - Provid er: Darcie Bolton, R-RT) documented in this encounter Care Teams Gis Administrator Relationship Specialty [place] [address] [facility] [address] [place] [address] Rheumatology 02/21/17 Lashay Downs, GAY Registered Nurse Pain Management 06/17/17 Duke Do, RN Registered Nurse 09/09/17 documented as of this encounter
--- OUTSIDE RECORDS SUMMARY | 2024-06-14 16:51 | XMS_ITS | Encounter Summary ---
Author Organization [facility] Healthcare Address [address] [place] [address] Care Team Providers Care Recruiting Coordinator Name Role Phone Criss Blanco MD Unavailable Lashay Downs RN Unavailable Unavailab Duke Goodwin RN Unavailable Unavailabl e Reason for Visit * Reason Comments PT Treatment Encounter Details Date Type Department Care Team (Late st Contact Info) Description 08/01/2018 10:30 AM CANDLE MOLDER HAND Therapy [facility] Physical Therapy [address] [facility] [place] [address] Ara Avery PTA Lumbar spondylosis (Primary Dx) [...] on file Legal Sex Male 12:56 AM CANDLE MOLDER HAND Gender Identity Not on file Sexual Orientation Not on file documented as of this encounter Progress Notes * Ara Avery PTA - 08/01/2018 10:30 AM CST PT Daily Treatment Note Samuel Sanchez 1945 Subjective: Pain: 2 low back Reports he is performing his HEP to the best of his ability and is trying to monitor his lifting tecnique Objective: Unchanged from his initial evaluation Treatment Provided: He was seen today for a review of his previous issued exercise program followed by passive stretching to his low back Ultrasound was also initiated to his low back to promote healing He was then introduced to hip flexor stretching and movement retraining activity in the form of SLDL Assessment: He continues to be receptive to the current treatment program He requires verbal and tactile queuing for movement retraining Plan: Continue progressing as clinically indicated Start Time: 10:35 End Time:11:20 Ara Avery PTA LE MOLDER HAND documented in this encounter Plan of Treatment Not on file documented as of this encounter Visit Diagnoses Diagnosis Lumbar spondylosis- Primary Lumbosacral spondylosis without myelopathy documented in this encounter Care Teams Recruiting Coordinator Relationship Specialty [place] [address] [address] Rheumatology 02/21/17 Lashay Downs, GAY Registered Nurse Pain Management 06/17/17 Duke Do, RN Registered Nurse 09/09/17 documented as of this encounter
--- OUTSIDE RECORDS SUMMARY | 2024-06-14 16:51 | XMS_ITS | Encounter Summary ---
Author Organization [facility] Healthcare Address [address] [place] [address] Care Team Providers Care Trimmer Helper Name Role Phone Criss Blanco MD Unavailable Lsahay Downs RN Unavailable Unavailab Duke Goodwin RN Unavailable Unavailabl e Encounter Details Date Type Department Care Team (Late st Contact Info) Description 01/28/2019 Telephone [facility] Radiation Oncology [address] [address] Ngozi Petty MD [address] [place], [place] [id number] Social History Tobacco Use Types Packs/Day Years Used Date Smoking Tobacco: Former Cigarettes 2 30 Smokeless Tobacco: Never Comments:Smoking History Pac ks/day: 2 Packs Alcohol Use Standard Drinks/Week Comments Yes 2 (1 standard drink = 0.6 oz pur e alcohol) Sex and Gender Information Value Date Recorded Sex Assigned at Not on file Legal Sex Male 12:56 AM RIBBER Gender Identity Not on file Sexual Orientation Not on file documented as of this encounter Miscellaneous Notes * Telephone Encounter - Heaven Kaye - 01/28/2019 12:28 PM CDT 01-28-19 PT was called for appt w/Dr Petty for 01/30/19. Patient to bring PET CT scan from [facility]/ documented in this encounter Plan of Treatment Not on file documented as of this encounter Visit Diagnoses Not on filedocumented in this encounter Care Teams Trimmer Helper Relationship Specialty [place] [address] [facility] [address] [place] [address] Rheumatology 02/21/17 Lashay Downs, RN Registered Nurse Pain Management 06/17/17 Duke Do, RN Registered Nurse 09/09/17 documented as of this encounter
--- OUTSIDE RECORDS SUMMARY | 2024-06-14 16:51 | XMS_ITS | Encounter Summary ---
Author Organization [facility] Healthcare Address [address] [place] [address] Care Team Providers Care Animal Keeper Name Role Phone Criss Blanco MD Unavailable Lashay Downs RN Unavailable Unavailab Duke Goodwin RN Unavailable Unavailabl e Reason for Visit * Reason Comments PT Treatment Encounter Details Date Type Department Care Team (Late st Contact Info) Description 08/06/2018 9:15 AM DIVER ASSISTANT Therapy [facility] Physical Therapy [address] [facility] [place] [address] Samuel Rubio, PT Lumbar spondylosis (Primary Dx) [...] on file Legal Sex Male 12:56 AM DIVER ASSISTANT Gender Identity Not on file Sexual Orientation Not on file documented as of this encounter Progress Notes * Samuel Rubio, PT - 08/06/2018 9:15 AM CST PT Daily Treatment Note Samuel Sanchez 1945 Subjective:This gentleman relates exacerbationover the course of the past weekend he had extreme right side low back pain he is unable to associate this with a particularly event or episode but states thathe had been going a variety of house chores prior to this episode. He has no complaints of radi ationprimarily right side localized back pain this is improved today he has continued to the best of his ability with stabilization and alternative movement training Pain: 3 Treatment Provided:Today he has no provocation with passive leg raise he has substantial findings on palpation of the right para lumbar musculature. Weproceed today with palliative applications of moist heat with bipolar stimulation this is effective at reducing his subjective pain levels to a level one following the conclusion of today's visit. I outline indications for gentle but progressive exercise and to continue to engage regular and consistent alternative movement patterns Assessment: he remains receptive to conservative treatmenthe is actively involved in his care and appears to understand mechanical rationale behind stabilization and alternative movement Plan:we will continue predicated on his clinical presentation Start Time: :15 End Time:1000 Samuel Rubio PT R ASSISTANT documented in this encounter Plan of Treatment Not on file documented as of this encounter Visit Diagnoses Diagnosis Lumbar spondylosis- Primary Lumbosacral spondylosis without myelopathy documented in this encounter Care Teams Animal Keeper Relationship Specialty [place] [address] [facility] [address] [place] [address] Rheumatology 02/21/17 Lashay Downs, RN Registered Nurse Pain Management 06/17/17 Duke Do, GAY Registered Nurse 09/09/17 documented as of this encounter
--- OUTSIDE RECORDS SUMMARY | 2024-06-14 16:51 | XMS_ITS | Encounter Summary ---
Author Organization [facility] Healthcare Address [address] [place] [address] Care Team Providers Care Driver Trainer Name Role Phone Criss Blanco MD Unavailable Lashay Downs RN Unavailable Unavailab Duke Goodwin RN Unavailable Unavailabl e Encounter Details Date Type Department Care Team (Latest Contact Info) Description 06/04/2018 11:11 AM MANAGER SERVICING Hospital Encounter [facility] OP Anjel Caballero MD [address] [facility] [address] [address] Calculus of kidney Social History Tobacco Use Types Packs/Day Years Used Date Smoking Tobacco: Former Cigarettes 2 30 Smokeless Tobacco: Never Comments:Smoking History Pac ks/day: 2 Packs Alcohol Use Standard Drinks/Week Comments Yes 2 (1 standard drink = 0.6 oz pur e alcohol) Sex and Gender Information Value Date Recorded Sex Assigned at Not on file Legal Sex Male 12:56 AM MANAGER SERVICING Gender Identity Not on file Sexual Orientation Not on file documented as of this encounter Medications at Time of Discharge biotin 10,000 mcg capsuleIndication s:supplement Take 1 capsule by mouth every morning 06/30/2019 folic acid (FOLVITE) 1 mg tabletIndications :Folate Deficiency Take 1 mg by mouth every morning 05/29/2019 HYDROcodone-aceta minophen (NORCO) 10-325 mg per tabletIndications :Lower Back Pain,Pain Take 1 tablet by mouth 3 (three) times a day as needed for pain. 90 tablet 10/04/2017 01/30/2019 HYDROcodone-aceta minophen (NORCO) 10-325 mg per tabletIndications :Pain Take 1 tablet by mouth every 6 (six) hours as needed for pain. 20 tablet 04/21/2018 02/06/2019 qojjzkizqgrq-Na-i foreign-minerals 18-0.4 mg tabletIndications :Mineral Deficiency Prevention,Vitami n Deficiency Prevention Take 1 tablet by mouth every morning 06/30/2019 omeprazole (PriLOSEC) 20 mg capsule Take 20 mg by mouth daily. 02/06/2019 ranitidine (ZANTAC) 300 mg capsuleIndication s:gastroesophagea [...] 05/16/2017 01/30/2019 documented as of this encounter Plan of Treatment Not on file documented as of this encounter Procedures Procedure Name Priority Date/Time Associated Diagnosis Comments XR ABDOMEN AP 1 VIEW Routine 06/04/2018 11:18 AM MANAGER SERVICING documented in this encounter Results * XR Abdomen Ap 1 Vw (06/04/2018 11:18 AM MANAGER SERVICING) Anatomical Region Laterality Modality Body, Abdomen N/A Radiographic Corin ging 06/04/2018 11:1 8 AM MANAGER SERVICING Impressions 06/04/2018 1:08 PM MANAGER SERVICING ??Several small stones suspected over both kidneys. THIS IS AN ELECTRONICALLY VERIFIED FINAL REPORT 06/04/2018 1:06 PM - Electronically signed by Kevin MCGUIRE D: ??06/04/2018 1:06 PM T: Report ID: [id number] Reading Location: ??[id number] [EOD] Narrative 06/04/2018 1:08 PM MANAGER SERVICING EXAM DESCRIPTION: ??Abdomen 1 View REASON FOR STUDY: ??Kidney stones TECHNIQUE: ??Supine radiographic view of the abdomen acquired. COMPARISON: ??None FINDINGS: Several small 1-3 mm calcified stones are seen over the lower poles of the kidneys. ??Kidneys are partially obscured by bowel gas. ??Liver and spleen are not enlarged. ??No abundant stool or dilated small bowel. ??Lung bases clear. Procedure Note ProviderEmmie MD - 10/18/2020 EXAM DESCRIPTION: Abdomen 1 View REASON FOR STUDY: Kidney stones TECHNIQUE: Supine radiographic view of the abdomen acquired. COMPARISON: None FINDINGS: Several small 1-3 mm calcified stones are seen over the lower poles of the kidneys. Kidneys are partially obscured by bowel gas. Liver and spleenare not enlarged. No abundant stool or dilated small bowel. Lung basesclear. IMPRESSION: Several small stones suspected over both kidneys. THIS IS AN ELECTRONICALLY VERIFIED FINAL REPORT 06/04/2018 1:06 PM - Electronically signed by Kevin Sol M.D. DA T: Report ID: [id number] Reading Location: [place] [id number] [EOD] us Anjel Caballero MD IMG XR PROCEDURES Mariaa l Result documented in this encounter Visit Diagnoses Diagnosis Calculus of kidney documented in this encounter Care Teams Driver Trainer Relationship Specialty [place] [address] [facility] [address] [place] [address] Rheumatology 02/21/17 Lashay Downs, GAY Registered Nurse Pain Management 06/17/17 Duke Do, GAY Registered Nurse 09/09/17 documented as of this encounter
--- OUTSIDE RECORDS SUMMARY | 2024-06-14 16:51 | XMS_ITS | Encounter Summary ---
Author Organization [facility] Healthcare Address [address] [place] [address] Care Team Providers Care Structures Technician Name Role Phone Criss Blanco MD Unavailable Lashay Downs RN Unavailable Unavailab le Duke Do RN Unavailable Unavailabl e Encounter Details Date Type Department Care Team (Late st Contact Info) Description 10/15/2018 Orders Only [facility] INTERIM [phone] Alissa Fuentes MD [address] [facility] [address] [place] [address] Social History Tobacco Use Types Packs/Day Years Used Date Smoking Tobacco: Former Cigarettes 2 30 Smokeless Tobacco: Never Comments:Smoking History Pac ks/day: 2 Packs Alcohol Use Standard Drinks/Week Comments Yes 2 (1 standard drink = 0.6 oz pur e alcohol) Sex and Gender Information Value Date Recorded Sex Assigned at Not on file Legal Sex Male 12:56 AM GOLDSMITH APPRENTICE Gender Identity Not on file Sexual Orientation Not on file documented as of this encounter Plan of Treatment Not on file documented as of this encounter Visit Diagnoses Not on filedocumented in this encounter Care Teams Structures Technician Relationship Specialty [place] [address] [facility] [address] [place] [address] Rheumatology 02/21/17 Lashay Downs, GAY Registered Nurse Pain Management 06/17/17 Duke Do, RN Registered Nurse 09/09/17 documented as of this encounter
--- OUTSIDE RECORDS SUMMARY | 2024-06-14 16:51 | XMS_ITS | Encounter Summary ---
Author Organization [facility] Address [address] [facility] [address] [place] [address] Care Team Providers Care Medical Staff Manager Name Role Phone Criss Blanco MD Unavailable Lashay Downs RN Unavailable Unavailab Duke Goodwin RN Unavailable Unavailabl e Reason for Visit * Diagnostic Imaging (Routine) - Closed Specialty Diagnoses / Procedures Referred By Alcira forrest Referred To Contact Diagnoses Discogenic low back pain Procedures XR Spine Lumbar Complete 4 View Timmy Bañuelos MD Phone: tel: fax: [facility] Referral ID Status Reason Start Date Expiration Date Visits Re quested Visits Authorized [id number] Closed 07/28/2018 02/06/2020 1 1 Encounter Details Date Type Department Care Team (Latest Contact Info) Description 07/28/2018 11:00 AM FLAT LOCKER - 07/28/2018 11:59 PM FLAT LOCKER Hospital Encounter [facility] [address] [id number] Discharge Disposition: Discharge to home or self [...] on file Legal Sex Male 12:56 AM FLAT LOCKER Gender Identity Not on file Sexual Orientation [...] Name Priority Date/Time Associated Diagnosis Comments XR SPINE LUMBAR COMPLETE 4 OR MORE VIEWS Schedule Routine, Read Routine (OP Routine) 07/28/2018 11:18 AM FLAT LOCKER Lumbar spondylosis documented in this encounter Results * XR Spine Lumbar Complete 4 View (07/28/2018 11:18 AM FLAT LOCKER) Anatomical Region Laterality Modality Spine N/A Radiographic Corin ging Narrative 07/28/2018 11:51 AM FLAT LOCKER AP, lateral, flexion-extension of the lumbar spine was interpreted. ??It demonstrates evidence of severe spondylosis diffusely throughout the lumbar spine. ??There is no evidence of degenerative spondylolisthesis. ?? There is no coronal deformity seen on AP. ??And his spine is stable to flexion-extension. Timmy Bañuelos MD IMG XR PROCEDURES Mariaa l Result documented in this encounter Visit Diagnoses Not on filedocumented in this encounter Care Teams Medical Staff Manager Relationship Specialty [place] [address] [facility] [address] [place] [address] Rheumatology 02/21/17 Lashay Downs, RN Registered Nurse Pain Management 06/17/17 Duke Do, RN Registered Nurse 09/09/17 documented as of this encounter
--- OUTSIDE RECORDS SUMMARY | 2024-06-14 16:51 | XMS_ITS | Encounter Summary ---
Author Organization [facility] Healthcare Address [address] [place] [address] Care Team Providers Care Night Patrol Inspector Name Role Phone Criss Blanco MD Unavailable Lashay Downs RN Unavailable Unavailab Duke Goodwin RN Unavailable Unavailabl e Reason for Visit * Reason Comments PT Initial Eval * Consultation (Routine) - Closed Specialty Diagnoses / Procedures Referred By Alcira forrest Referred To Contact Physical Therapy Diagnoses Lumbar spondylosis Timmy Bañuelos MD Phone: tel: fax: [address] [phone] Referral ID Status Reason Start Date Expiration Date V isits Requested Visits Authorized [id number] Closed Specialty Services Required 07/28/2018 02/06/2020 12 12 Encounter Details Date Type Department Care Team (Late st Contact Info) Description 07/29/2018 10:45 AM HUC OB Therapy [facility] Physical Therapy - [address] [facility] [place] [address] Samuel Rubio, PT Lumbar spondylosis (Primary Dx) [...] on file Legal Sex Male 12:56 AM HUC OB Gender Identity Not on file Sexual Orientation Not on file documented as of this encounter Progress Notes * JosenishaSamuel myrickAshanti, PT - 07/29/2018 10:45 AM CST PT Initial Evaluation Samuel Sanchez 1945 73 y.[place]. male Timmy Bañuel[place] [id number] [address] [address] [place] [address] ICD-9-CM ICD-10-CM 1. Lumbar spondylosis 721.3 M47.816 Ambulatory referral order to Physical Therapy - Subjective: History of Present Condition Mechanism of injury: This gentleman reports today a long-standing situation surrounding recurrent and progressive right sided low back pain. His history spans greater than the past 15 years and as hecomes this morning he describesand involved course of intervention including extensive conservativetreatment and pain management. He reports today on the recommendation of his sports marketing specialist for conservative intervention once again as he is not a surgical candidate at this juncture. He complainsof intense right side low back pain associated with standing or even setting. He is able to find resolution with lying supinein a supine position his pain is essentially gone. He has no complaints ofradiation in the right lower extremity no episodes of weakness. He is able to sleep comfortably he has been using a number of different medications and has been on a course ofsteroids which has provided some transient relief. 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 his who requires around the clock attention and transfers as well as personal care Treatments Previous treatment: Chiropractic, Injection treatment, Medication, Physical therapy Current treatment: Physical therapy Patient/Caregiver Goals Goals for therapy: Decreased pain, Increased motion, Ayr with ADLs/IADLs Physical Examination AROM Thoracic (in degrees) Flexion: 60 degrees Flexion details: pain Extension: 10 degrees Extension details: pain Lumbar Spine Tenderness Palpation Additional tenderness details: He has tenderness diffusely in the right paraspinal musculature along the course of the iliac crest on the right Sensation Neuro - Right Light touch: Intact Sharp/dull discrimination: Intact Proprioception: Intact Neuro - Left Light touch: Intact Sharp/dull discrimination: Intact Proprioception: Intact Reflexes Reflexes - Right L4: Patellar: Absent (0) S1: Achilles: Normal (2+) Babinski: No Clonus: No Reflexes - Left L4: Patellar: Trace (1+) S1: Achilles: Normal (2+) Babinski: No Clonus: No AROM Active Range of Motion Normal active range of motion: No (he is restricted in any extension movements and complains of increased right-sided back pain withpassive extension. Neutral spinal posturing is not provocative but he sits in a flexed position and stands in a flexed position) Thoracic (in degrees) Flexion: 60 degrees Flexion details: pain Extension: 10 degrees Extension details: pain Strength Right Normal strength: Yes Left Normal strength: Yes Right Lower abdominals: E1 - unilateral hip and knee flexion Left Lower abdominals: E1 - unilateral hip and knee flexion Additional strength details: He has significant weakness of the lower abdominal group as assessed on Leg lowering he is unable to maintain neutral spinal posture while manipulating the lower extremities independently Special Tests Lumbar (Right) Passive SLR: Negative Lumbar (Left) Passive SLR: Negative Flexibility Right Clive: Short SLR: Short Hamstring 90/90: Short Maggi: Short Left Clive: Short SLR: Short Hamstring 90/90: Short Maggi: Short Treatment Provided: Following evaluation and discussionthis morning he is advised on a course of lower abdominal stabilization her spinal stabilization and neutral spinal posturing. We also introduced alternative movement patterns emphasizing A. Hip strategy he is given a comprehensive home programwith illustration and instruction these are reviewed verbally and visually and his questions are answered to the best of my ability this morning Assessment/Plan: Assessment Impairments: abnormal or restricted ROM, activity tolerance, impaired safety, pain with function, impaired physical strength, impaired body mechanics, impaired body awareness, lacks appropriate home exercise program Prognosis: good Prognosis details: We spoke at length today in regards to improve core stability and the engagementof improved strengthtowards alternative movement patterns and neutral spinal posturing. He is open to conservative treatment willing to be actively involved in his care Goals STG 1:: Reduced maximal subjective pain rating straight maximum level of 5 in the next 2 weeks STG 2:: iimproved lower abdominal strengthas measured onleg lowering examinationy STG 3:: Improved tolerance to static standing and progressive ambulation to greater than 20 minutesin the next 2 weeks STG 4:: Independent performance in a structured course of core stabilization and alternative movementpatterns LTG 1:: Positive symptom impact and effective symptom management through a concert of core stabilizationproprioceptive training and alternative movement education and engagement Plan Start time: 1030 End time: 1130 Therapy options: will be seen for skilled therapy services Planned therapy interventions: abdominal trunk stabilization, ADL retraining, body mechanics training, strengthening, stretching, home exercise program Frequency: 2 x/week Duration in weeks: 3 weeks Discussed with: patient Samuel Rubio, PT OB documented in this encounter Plan of Treatment Not on file documented as of this encounter Visit Diagnoses Diagnosis Lumbar spondylosis- Primary Lumbosacral spondylosis without myelopathy documented in this encounter Orders Outpatient Referral Count Last Ordered Date st Ordered Date AMB REFERRAL ORDER TO PHYSICAL THERAPY 1 documented in this encounter Care Teams Night Patrol Inspector Relationship Specialty [place] [id number] [facility] [address] [place] [address] Rheumatology 02/21/17 Lashay Downs, RN Registered Nurse Pain Management 06/17/17 Duke Do, GAY Registered Nurse 09/09/17 documented as of this encounter
--- OUTSIDE RECORDS SUMMARY | 2024-06-14 16:51 | XMS_ITS | Encounter Summary ---
Author Organization [facility] Healthcare Address [address] [place] [address] Care Team Providers Care Early Childhood Associate Teacher Name Role Phone Criss Blanco MD Unavailable Lashay Downs RN Unavailable Unavailab Duke Goodwin RN Unavailable Unavailabl e Reason for Visit * Reason Comments Flank Pain Encounter Details Date Type Department Care Team (Late st Contact Info) Description 04/21/2018 4:38 PM SOLDER CREAM MAKER - 04/21/2018 7:22 PM SOLDER CREAM MAKER Emergency [facility] Emergency Department [address] [place] [address] Marcela Gamboa MD [address] [place] [address] Ureteral colic (Primary Dx) Discharge Disposition: Discharge to home or self [...] on file Legal Sex Male 12:56 AM SOLDER CREAM MAKER Gender Identity Not on file Sexual Orientation Not on file documented as of this encounter Last Filed Vital Signs Vital Sign Reading Time Taken Comments Blood Pressure 132/92 04/21/2018 7:15 PM SOLDER CREAM MAKER Pulse 87 04/21/2018 5:01 PM SOLDER CREAM MAKER Temperature 36.5 ??C (97.7 ??F) 04/21/2018 5:01 PM CS T Respiratory Rate 18 04/21/2018 5:01 PM SOLDER CREAM MAKER Oxygen Saturation 96% 04/21/2018 7:15 PM SOLDER CREAM MAKER Inhaled Oxygen Concentration - - Weight 102.1 kg (225 lb) 04/21/2018 5:01 PM SOLDER CREAM MAKER Height - - Body Mass Index 29.69 04/18/2018 8:08 PM SOLDER CREAM MAKER documented in this encounter Discharge Instructions * Attachments The following attachments cannot be sent through Care Everywhere. * Kidney Stone w/ Colic (Kyrgyz) documented in this encounter Medications at Time [...] needed for pain. 20 tablet 04/21/2018 02/06/2019 [id number] foreign-minerals 18-0.4 mg tabletIndications :Mineral Deficiency Prevention,Vitami [...] Filled Start Date End Date HYDROcodone-acetam inophen (NORCO) 10-325 mg per tabletIndications: Pain Take 1 tablet by mouth every 6 (six) hours as needed for pain. 20 tablet 04/21/2018 02/06/2019 documented in this encounter Discharge Disposition Disposition Code Departure Means Destination Discharge to home or self care documented in this encounter ED Notes * Karina Vieira RN - 04/21/2018 5:13 PM CST Pt presents to ED with C/O right sided flank pain that started around 1400 today and has gradually worsened. Pt denies any urianry symptoms but stated he has a hx of kidney stones. ER CREAM MAKER * Marcela Gamboa MD - 04/21/2018 4:45 PM CST HPI Chief Complaint Patient presents with ??? Flank Pain HPI 4:45 PM Samuel Sanchez is a 72 y.o. male with a history of kidney stones presenting to the ED c/o right flank pain. Patient reports that he had a stent removed from his right kidney this morning,and on the way home, patient states that he developed right flank pain. His pain has has been progressively worsening since onset, and states it feels similar in quality to when he has had kidney stones in the past. He reports associated subjective fever and chills. Patient is not on blood thinner Patient was seen at [facility] ED 3 days ago for viral pharyngitis. Urology: Dr Caballero Patient History Past Medical History: Diagnosis Date ??? Arthritis [...] OTHER MEDICAL hemorroids; Comments: Had done at [facility] in [place] ??? HX OTHER MEDICAL bladder infection ??? HX OTHER MEDICAL kidney stone ??? Malignant neoplasm of prostate ([facility] 1998 prostate Past Surgical History: Procedure Laterality [...] oz/week 2 Shots of liquor per week Review of Systems Review of Systems Constitutional: Positive for chills and fever (subjective). Negative for fatigue. HENT: Negative for congestion, ear pain, rhinorrhea, sneezing and sore throat. Respiratory: Negative for cough, shortness of breath and wheezing. Cardiovascular: Negative for chest pain and palpitations. Gastrointestinal: Negative for abdominal pain, constipation, diarrhea, nausea and vomiting. Genitourinary: Positive for flank pain. Musculoskeletal: Negative for arthralgias, back pain and neck pain. Skin: Negative for color change, pallor, rash and wound. Neurological: Negative for dizziness, syncope, weakness, light-headedness and headaches. All other systems reviewed and are negative. Physical Exam ED Triage Vitals Temp Pulse Resp BP SpO2 04/21/18 1701 04/21/18 1701 04/21/18 1701 04/21/18 1701 04/21/18 1701 36.5 ??C (97.7 ??F) 87 18 130/97 100 % Temp src Heart Rate Source Patient Position BP Location FiO2 (%) 04/21/18 1701 -- 04/21/18 1830 -- -- Temporal Lying Physical Exam Constitutional: He is oriented to person, place, and time. He appears well- developed and well-nourished. He appears distressed (pain distress). HENT: Head: Normocephalic and atraumatic. Mouth/Throat: Oropharynx is clear and moist. Eyes: Conjunctivae and EOM are normal. Neck: Normal range of motion. Neck supple. Cardiovascular: Normal rate, regular rhythm, normal heart sounds and intact distal pulses. Exam reveals no gallop and no friction rub. No murmur heard. Pulmonary/Chest: Effort normal and breath sounds normal. No respiratory distress. He has no wheezes. He has no rales. Abdominal: Soft. He exhibits no distension. There is no tenderness. There is CVA tenderness (right sided). Musculoskeletal: Normal range of motion. He exhibits no edema, tenderness or deformity. Neurological: He is alert and oriented to person, place, and time. Skin: Skin is warm and dry. Capillary refill takes less than 2 seconds. No rash noted. No erythema.No pallor. Psychiatric: He has a normal mood and affect. His behavior is normal. Nursing note and vitals reviewed. Procedures MDM Labs Reviewed URINALYSIS AND REFLEX TO MICROSCOPIC AND CULTURE - Abnormal Result Value Color, ur Sandra Clarity, ur Cloudy (*) Specific gravity, ur 1.013 pH, urine 6.0 Protein, ur ql 2+ (*) Glucose, ur ql Negative Ketones, ur Negative Bilirubin, ur Negative Blood, ur 3+ (*) Urobilinogen, ur 0.2 Nitrite, ur Negative Leukocyte esterase, ur 2+ (*) Narrative: Urine pH is affected by diet, medications, systemic acid-base disturbances, and renal tubular function. pH may affect urinary stone formation. For example, urine pH below 6.0 may help reduce the tendency for calcium phosphate stones and pH greater than 6.0 may reduce the tendency for uric acid stone formation. Source: [facility] Dataslide.Last revised 06-13-2017 URINALYSIS, MICROSCOPIC ONLY - Abnormal WBC, ur 21-50 (*) RBC, ur >100 Epithelial cells, squamous, ur 1-5 Bacteria, ur Negative Hyaline casts, ur 1-5 Narrative: BLOOD CULTURE BLOOD CULTURE PROTIME-INR PT 11.4 INR 1.01 Narrative: APTT aPTT 32.4 Narrative: CBC WITH AUTO DIFFERENTIAL WBC 7.5 Hgb 14.4 Hct 42.2 Plt 206 MPV 10.4 RBC 4.62 MCV 91.3 MCH 31.2 MCHC 34.1 RDW CV 12.4 RDW SD 41.2 NRBC Abs 0.00 Narrative: COMPREHENSIVE METABOLIC PANEL Sodium 140 Potassium, pl 4.0 Chloride 104 CO2 25 Anion Gap 11 BUN 23 Creatinine 1.15 Glucose 103 Calcium 9.1 Bilirubin, total 0.4 Protein, pl 6.7 Albumin 4.2 Alk phos 75 ALT 13 AST 14 Narrative: SEPSIS LACTATE WITH REFLEX Sepsis Lactate 1.3 Narrative: DIFFERENTIAL AUTO Neutrophil absolute 5.6 Immature granulocyte absolute 0.0 Lymphocytes absolute 1.1 Monocyte absolute 0.4 Eosinophils absolute 0.4 Basophils, abs 0.0 Neutrophils 73.9 Immature granulocytes 0.3 Lymphocytes 14.3 Monocytes 5.7 Eosinophils 5.3 Basophils 0.5 Narrative: EGFR GFR >60 Narrative: CT KUB Stone WO Contrast Final Result 1. 3 MM DISTAL RIGHT URETERAL CALCULUS WITH MODERATE PROXIMAL URINARY TRACT DILATATION. 2. NONOBSTRUCTIVE BILATERAL INTRARENAL CALCULI. 3. PROSTATIC HYPERTROPHY. Electronically signed by: Brad Patricia M.D. BP 132/92 Pulse 87 Temp 36.5 ??C (97.7 ??F) (Temporal) Resp 18 Wt 102.1 kg (225 lb) SpO2 96% BMI 29.69 kg/m?? Patient Vitals for the past 24 hrs: BP Temp Temp src Pulse Resp SpO2 Weight 04/21/18 1915 132/92 - - - - 96 % - 04/21/18 1830 138/98 - - - - 97 % - 04/21/18 1701 130/97 36.5 ??C (97.7 ??F) Temporal 87 18 100 % 102.1 kg (225 lb) [facility] ED Course as of Apr 21 2017 Time: 04/21 1900 Comment: Rechecked patient. Condition is improved. Discussed the results of ED findings, and the plan for discharge. Recommended follow up with urology, Dr. Caballero, tomorrow, or return to ED for newor worsening symptoms. Patient understands and agrees with plan. All other questions have been addressed. By: Wil Villegas Time: 04/21 1905 Comment: Patient already takes Flomax. Will discharge with oxycodone By: Wil Villegas Time: 04/21 1908 Comment: Reviewed IPMP By: MD Wil Hidalgo scribed for Marcela Gamboa*. I electronically signed this note at 4:45 PMon 04/21/2018. I, Marcela Gamboa MD , have personally performed the services described in the documentation , reviewed the documentation, as recorded by the scribe in my presence, and it accurately and completely records my words and actions. DISPOSITION:DISCHARGED Clinical Impression: Ureteral colic Marcela Gamboa MD 04/21/182016 ER CREAM MAKER documented in this encounter Plan of Treatment Not on file documented as of this encounter Procedures Procedure Name Priority Date/Time Associated Diagnosis Comments URINALYSIS AND REFLEX TO MICROSCOPIC AND CULTURE STAT 04/21/2018 6:29 PM SOLDER CREAM MAKER URINALYSIS, MICROSCOPIC ONLY STAT 04/21/2018 6:29 PM SOLDER CREAM MAKER URINE CULTURE STAT 04/21/2018 6:[address] KUB STONE WO CONTRAST ED Urgent/IP Urgent 04/21/2018 5:38 PM SOLDER CREAM MAKER BLOOD CULTURE STAT 04/21/2018 5:31 PM SOLDER CREAM MAKER SEPSIS LACTATE WITH REFLEX STAT 04/21/2018 5:30 PM SOLDER CREAM MAKER BLOOD CULTURE STAT 04/21/2018 5:30 PM SOLDER CREAM MAKER EGFR STAT 04/21/2018 5:11 PM SOLDER CREAM MAKER DIFFERENTIAL AUTO STAT 04/21/2018 5:1 1 PM SOLDER CREAM MAKER CBC WITH AUTO DIFFERENTIAL STAT 04/21/2018 5:11 PM SOLDER CREAM MAKER APTT STAT 04/21/2018 5:11 PM SOLDER CREAM MAKER PROTIME-INR STAT 04/21/2018 5:11 PM SOLDER CREAM MAKER COMPREHENSIVE METABOLIC PANEL STAT 04/21/2018 5:11 PM SOLDER CREAM MAKER documented in this encounter Results * Urine culture (04/21/2018 6:29 PM SOLDER CREAM MAKER) Report Final Report: No growth ANDRE ANSARI) Comment:Testing performed by : [facility], [address] [facility] [place]., [address] Urine 04/21/2018 6:29 PM SOLDER CREAM MAKER 04/21/2018 9:36 PM SOLDER CREAM MAKER Narrative ANDRE MORAES (BRE) - 04/22/2018 5:28 PM SOLDER CREAM MAKER Urine culture reflexed based upon urinalysis results. Testing performed by [facility] Microbiology Laboratory ([phone]) us Marcela Gamboa MD LAB MICROBIOLOGY - GENERAL ORDERABLES Final Result ANDRE ANSARI) 1 [facility] Department [place] [address] * (ABNORMAL) Urinalysis, microscopic only (04/21/2018 6:29 PM SOLDER CREAM MAKER) WBC, ur 21-50(A) 0 - 5 /HPF [facility] (BRE) RBC, ur >100 0 - 5 /HPF [facility] (BRE) Epithelial cells, squamous, ur 1-5 0 - 5 /HPF [facility] (BRE) Bacteria, ur Negative [facility] (BRE) Hyaline casts, ur 1-5 0 - 10 /LPF [facility] (BRE) Urine 04/21/2018 6:29 PM SOLDER CREAM MAKER 04/21/2018 6:34 PM SOLDER CREAM MAKER Narrative [facility] (BRE) - 04/21/2018 6:53 PM SOLDER CREAM MAKER us Marcela Gamboa MD LAB URINE ORDERABLE S Final Result [facility] (BRE) 1 [facility] Department [place] [address] * (ABNORMAL) Urinalysis reflex to microscopic and culture Urine (04/21/2018 6:29 PM SOLDER CREAM MAKER) Color, ur Sandra Yellow [facility] (BRE) Clarity, ur Cloudy(A) Clear [facility] (BRE) Specific gravity, ur 1.013 1.010 - 1.025 [facility] (BRE) pH, urine 6.0 [facility] (BRE) Protein, ur ql 2+(A) Negative [facility] (BRE) Glucose, ur ql Negative Negative [facility] (BRE) Ketones, ur Negative Negative [facility] (BRE) Bilirubin, ur Negative Negative [facility] (BRE) Blood, ur 3+(A) Negative [facility] (BRE) Urobilinogen, ur 0.2 mg/dL [facility] (BRE) Nitrite, ur Negative Negative [facility] (BRE) Leukocyte esterase, ur 2+(A) Negative [facility] (BRE) Urine 04/21/2018 6:29 PM SOLDER CREAM MAKER 04/21/2018 6:34 PM SOLDER CREAM MAKER Narrative [facility] (BRE) - 04/21/2018 6:53 PM SOLDER CREAM MAKER ?? Urine pH is affected by diet, medications, systemic acid-base disturbances, and renal tubular function. ??pH may affect urinary stone formation. ??For example, urine pH below 6.0 may help reduce the tendency for calcium phosphate stones and pH greater than 6.0 may reduce the tendency for uric acid stone formation. Source: [employer]. Last revised 06-13-2017 us Marcela Gamboa MD LAB MICROBIOLOGY - GENERAL ORDERABLES Final Result ANDRE MORAES JOSEPH) 1 [facility] Department [place] [address] * CT KUB Stone WO Contrast (04/21/2018 5:38 PM SOLDER CREAM MAKER) Anatomical Region Laterality Modality Abdomen N/A Computed Tomogra phy 04/21/2018 6:28 PM SOLDER CREAM MAKER Impressions 04/21/2018 6:30 PM SOLDER CREAM MAKER 1. ??3 MM DISTAL RIGHT URETERAL CALCULUS WITH MODERATE PROXIMAL URINARY TRACT DILATATION. 2. ??NONOBSTRUCTIVE BILATERAL INTRARENAL CALCULI. 3. ??PROSTATIC HYPERTROPHY. Electronically signed by: Brad Patricia M.D. Narrative 04/21/2018 6:[address] KUB STONE WO CONTRAST HISTORY: Flank Pain. ??Right-sided flank pain. ??History of renal calculi. TECHNIQUE: Helically acquired axial images were obtained from the pamela hepatis to the pubic symphysis. CONTRAST: None. COMPARISON: 07/07/2017 FINDINGS: There is a 3 mm distal right ureteral calculus with moderate proximal urinary tract dilatation. ??Bilateral nonobstructive intrarenal calculi are present. ??A small amount of gas is present within the urinary bladder. ??Moderate prostatic hypertrophy is present. The unenhanced solid parenchymal organs are unremarkable. The small and large bowel are nondilated. There is no evidence of ascites or adenopathy. ??Diffuse vascular calcification is seen. Procedure Note Brad Patricia MD - 04/21/2018 CT KUB STONE WO CONTRAST HISTORY: Flank Pain. Right-sided flank pain. History of renal calculi. TECHNIQUE: Helically acquired axial images were obtained from the pamela hepatis to the pubic symphysis. CONTRAST: None. COMPARISON: 07/07/2017 FINDINGS: There is a 3 mm distal right ureteral calculus with moderate proximal urinary tract dilatation. Bilateral nonobstructive intrarenal calculi are present. A small amount of gas is present within the urinary bladder. Moderate prostatic hypertrophy is present. The unenhanced solid parenchymal organs are unremarkable. The small and large bowel are nondilated. There is no evidence of ascites or adenopathy. Diffuse vascular calcification is seen. IMPRESSION: 1. 3 MM DISTAL RIGHT URETERAL CALCULUS WITH MODERATE PROXIMAL URINARY TRACT DILATATION. 2. NONOBSTRUCTIVE BILATERAL INTRARENAL CALCULI. 3. PROSTATIC HYPERTROPHY. Electronically signed by: Brad Patricia M.D. Marcela Gamboa MD IMG CT PROCEDURES F inal Result * Blood culture Blood Peripheral (04/21/2018 5:31 PM SOLDER CREAM MAKER) Report Final Report: No growth ANDRE MORAES (BRE) Comment:Testing performed by : [place]., [address] Blood specimen (specimen) (Peripheral) 04/21/2018 5:31 PM SOLDER CREAM MAKER 04/21/2018 7:18 PM SOLDER CREAM MAKER Narrative ANDRE MORAES (BRE) - 04/26/2018 7:00 AM SOLDER CREAM MAKER From a different site than #1. Draw Blood cultures before administration of Antibiotics 1. For questions, call the Microbiology Laboratory at [phone]. Organism identification and/or antimicrobial susceptibility testing, if reported, [place] [address] 2. Blood cultures are incubated for 5 days, and cultures are monitored continuously. ??The first negative report is issued within 24 hours of receipt in the laboratory. ??Positive cultures are called in accordance with the critical call policy. 3. The most important factor for detection microbes in the setting of blood stream infection is the volume of blood submitted for culture. ??For pediatric patients, the recommended volume of blood to collect is 1 mL of blood per year of patient age, up to 15 mL, per blood culture set. For adult patients, 20 mL of blood, divided equally between an aerobic and anaerobic blood culture bottle, is recommended for each blood culture set. ??Failure to collect an optimal blood volume can result in false negative blood cultures. 4. Bloodstream infection is more likely to be catheter related if the time to culture positivity of a blood culture drawn through the catheter is at least 2.5 hours faster than the time to positivity of a percutaneous culture of the same volume drawn at the same time, using the same media type. 5. For blood cultures with gram-positive cocci, a rapid molecular test for organism identification may be performed using the [employer] Nanosphere Gram Positive Blood Culture Assay. The Nanosphere assay detects microbial DNA in positive blood culture broth via hybridization of target DNA to capture oligonucleotides on a microarray. This assay has been cleared by the [place] Food and Drug Administration and its performance characteristics have been verified by the [facility]biology Laboratory. Interpretive data was last revised on October 10, 2017. Marcela Gamboa MD LAB MICROBIOLOGY - GENERAL ORDERABLES Final Result ANDRE MORAES (BRE) 1 [facility] [place] [address] * Sepsis Lactate w/ Reflex (04/21/2018 5:30 PM SOLDER CREAM MAKER) Sepsis Lactate 1.3 0.7 - 2.0 mmol/L ANDRE MORAES (BRE) Blood specimen (specimen) 04/21/2018 5:30 PM SOLDER CREAM MAKER 04/21/2018 5:34 PM SOLDER CREAM MAKER Narrative ANDRE MORAES (BRE) - 04/21/2018 5:37 PM SOLDER CREAM MAKER Marcela Gamboa MD LAB BLOOD ORDERABLE S Final Result ANDRE ALEISHA (BRE) 1 [facility] [place] [address] * Blood culture Blood Peripheral (04/21/2018 5:30 PM SOLDER CREAM MAKER) Report Final Report: No growth ANDRE MORAES (BRE) Comment:Testing performed by : [facility], [facility], [place]., [address] Blood specimen (specimen) (Peripheral) 04/21/2018 5:30 PM SOLDER CREAM MAKER 04/21/2018 7:18 PM SOLDER CREAM MAKER Narrative ANDRE MORAES (BRE) - 04/26/2018 7:00 AM SOLDER CREAM MAKER Draw Blood cultures before administration of Antibiotics 1. For questions, call the Microbiology Laboratory at [phone]. Organism identification and/or antimicrobial susceptibility testing, if reported, [place] [address] 2. Blood cultures are incubated for 5 days, and cultures are monitored continuously. ??The first negative report is issued within 24 hours of receipt in the laboratory. ??Positive cultures are called in accordance with the critical call policy. 3. The most important factor for detection microbes in the setting of blood stream infection is the volume of blood submitted for culture. ??For pediatric patients, the recommended volume of blood to collect is 1 mL of blood per year of patient age, up to 15 mL, per blood culture set. For adult patients, 20 mL of blood, divided equally between an aerobic and anaerobic blood culture bottle, is recommended for each blood culture set. ??Failure to collect an optimal blood volume can result in false negative blood cultures. 4. Bloodstream infection is more likely to be catheter related if the time to culture positivity of a blood culture drawn through the catheter is at least 2.5 hours faster than the time to positivity of a percutaneous culture of the same volume drawn at the same time, using the same media type. 5. For blood cultures with gram-positive cocci, a rapid molecular test for organism identification may be performed using the OptMed Nanosphere Gram Positive Blood Culture Assay. The Nanosphere assay detects microbial DNA in positive blood culture broth via hybridization of target DNA to capture oligonucleotides on a microarray. This assay has been cleared by the [place] Food and Drug Administration and its performance characteristics have been verified by the [facility] Laboratory. Interpretive data was last revised on October 10, 2017. us Marcela Gamboa MD LAB MICROBIOLOGY - GENERAL ORDERABLES Final Result ANDRE MORAES (BRE) 1 [facility] Department [place] [address] * eGFR (04/21/2018 5:11 PM SOLDER CREAM MAKER) eGFR >60 mL/min/1.7 3 m2 ANDRE MORAES (BRE) Comment: Interpretive Data Reference Interval Normal ?>/= 90 mL/min/1.73m2 Mildly decreased* ? 60 - 89 mL/min/1.73m2 Mildly to moderately decreased ?45 - 59 mL/min/1.73m2 Moderately to severely decreased ??30 - 44 mL/min/1.73m2 Severely decreased ?15 - 29 mL/min/1.73m2 Kidney Failure ?< 15 ??mL/min/1.73m2 *Relative to young adult level If -Chinese multiply value by 1.16. Estimated glomerular filtration [...] was last reviewed 2015. Blood specimen (specimen) 04/21/2018 5:11 PM SOLDER CREAM MAKER 04/21/2018 5:17 PM SOLDER CREAM MAKER Narrative ANDRE MORAES (BRE) - 04/21/2018 5:41 PM SOLDER CREAM MAKER us Marcela Gamboa MD LAB BLOOD ORDERABLE S Final Result ANDRE ArnoldBRE) 1 [facility] Department [place] [address] * Differential, auto (04/21/2018 5:11 PM SOLDER CREAM MAKER) Neutrophil abs 5.6 1.7 - 6.5 K/cumm ANDRE MORAES (BRE) Imm gran abs 0.0 0.0 - 0.1 K/cumm [facility] (BRE) Lymphocyte abs 1.1 0.8 - 3.3 K/cumm [facility] (BRE) Monocyte abs 0.4 0.2 - 0.8 K/cumm [facility] (BRE) Eosinophil abs 0.4 0.0 - 0.5 K/cumm [facility] (BRE) Basophil abs 0.0 0.0 - 0.1 K/cumm [facility] (BRE) Neutrophil pct 73.9 % [facility] (BRE) Comment: Interpretive Data Percent cell count reference ranges are not reported, since discordance with absolute values may lead to misinterpretation of CBC data. Current Interpretive Data was last revised on 2017. Imm gran pct 0.3 % [facility] (BRE) Comment: Interpretive Data Percent cell count reference ranges are not reported, since discordance with absolute values may lead to misinterpretation of CBC data. Current Interpretive Data was last revised on 2017. Lymphocyte pct 14.3 % [facility] (BRE) Comment: Interpretive Data Percent cell count reference ranges are not reported, since discordance with absolute values may lead to misinterpretation of CBC data. Current Interpretive Data was last revised on 2017. Monocyte pct 5.7 % [facility] (BRE) Comment: Interpretive Data Percent cell count reference ranges are not reported, since discordance with absolute values may lead to misinterpretation of CBC data. Current Interpretive Data was last revised on 2017. Eosinophil pct 5.3 % [facility] (BRE) Comment: Interpretive Data Percent cell count reference ranges are not reported, since discordance with absolute values may lead to misinterpretation of CBC data. Current Interpretive Data was last revised on 2017. Basophil pct 0.5 % [facility] (BRE) Comment: Interpretive Data Percent cell count reference ranges are not reported, since discordance with absolute values may lead to misinterpretation of CBC data. Current Interpretive Data was last revised on 2017. Blood specimen (specimen) 04/21/2018 5:11 PM SOLDER CREAM MAKER 04/21/2018 5:17 PM SOLDER CREAM MAKER Narrative [facility] (BRE) - 04/21/2018 5:19 PM SOLDER CREAM MAKER us Marcela Gamboa MD LAB BLOOD ORDERABLE S Final Result ANDRE MORAES (BRE) 1 [facility] Department [place] [address] * Comprehensive metabolic panel (04/21/2018 5:11 PM SOLDER CREAM MAKER) Sodium 140 135 - 145 mmol/L [facility] (BRE) Potassium, pl 4.0 3.3 - 4.9 mmol/L [facility] (BRE) Chloride 104 97 - 110 mmol/L [facility] (BRE) CO2 25 22 - 32 mmol/L [facility] (BRE) Anion gap 11 2 - 15 mmol/L [facility] (BRE) BUN 23 8 - 25 mg/dL [facility] (BRE) Creatinine 1.15 0.80 - 1.30 mg/dL [facility] (BRE) Glucose 103 70 - 199 mg/dL [facility] (BRE) Comment: Interpretive Data Fasting glucose >/= [...] interpretive data was last revised 2017. Calcium 9.1 8.5 - 10.3 mg/dL [facility] ([facility]) Bilirubin, total 0.4 0.1 - 1.2 mg/dL [facility] ([facility]) Protein, pl 6.7 6.5 - 8.5 g/dL [facility] ([facility]) Albumin 4.2 3.5 - 5.0 g/dL [facility] ([facility]) Alk phos 75 40 - 130 Units/L [facility] ([facility]) ALT 13 7 - 55 Units/L [facility] ([facility]) AST 14 10 - 50 Units/L [facility] ([facility]) Blood specimen (specimen) 04/21/2018 5:11 PM SOLDER CREAM MAKER 04/21/2018 5:17 PM SOLDER CREAM MAKER Narrative [facility] (BRE) - 04/21/2018 5:41 PM SOLDER CREAM MAKER us Marcela Gamboa MD LAB BLOOD ORDERABLE S Final Result [facility] (BRE) 1 [facility] Department [place] [address] * CBC with auto differential (04/21/2018 5:11 PM SOLDER CREAM MAKER) WBC 7.5 3.8 - 9.9 K/cumm [facility] (BRE) Hgb 14.4 13.0 - 17.5 g/dL [facility] ([facility]) Hct 42.2 38.9 - 50.3 % [facility] ([facility]) Plt 206 150 - 400 K/cumm [facility] ([facility]) MPV 10.4 9.1 - 12.3 fL [facility] ([facility]) RBC 4.62 4.30 - 5.80 M/cumm [facility] ([facility]) MCV 91.3 81.3 - 96.4 fL [facility] ([facility]) MCH 31.2 27.1 - 33.3 pg [facility] ([facility]) MCHC 34.1 32.3 - 35.7 g/dL [facility] ([facility]) RDW CV 12.4 11.1 - 14.9 % [facility] ([facility]) RDW SD 41.2 35.7 - 48.1 fL [facility] ([facility]) NRBC abs 0.00 0.00 - 0.01 K/cumm [facility] (BRE) Blood specimen (specimen) 04/21/2018 5:11 PM SOLDER CREAM MAKER 04/21/2018 5:17 PM SOLDER CREAM MAKER Narrative [facility] (BRE) - 04/21/2018 5:19 PM SOLDER CREAM MAKER us Marcela Gamboa MD LAB BLOOD ORDERABLE S Final Result [facility] (BRE) 1 [facility] [place] [address] * aPTT (04/21/2018 5:11 PM SOLDER CREAM MAKER) aPTT 32.4 25.0 - 37.0 sec [facility] (BRE) Blood specimen (specimen) 04/21/2018 5:11 PM SOLDER CREAM MAKER 04/21/2018 5:17 PM SOLDER CREAM MAKER Narrative [facility] (BRE) - 04/21/2018 5:36 PM SOLDER CREAM MAKER us Marcela Gamboa MD LAB BLOOD ORDERABLE S Final Result Performing Organization Address [facility] Co de Phone Number [facility]OR[facility] (BRE) 1 [facility] [place] [address] * Protime-INR (04/21/2018 5:11 PM SOLDER CREAM MAKER) PT 11.4 9.5 - 13.0 sec [facility] (BRE) INR 1.01 0.90 - 1.20 [facility] ([facility]) Comment: Interpretive Data Recommended ranges for Protime INR: 2.0 - 3.0 Most indications for Warfarin therapy (e.g. Treatment of DVT, PE, bioprosthetic valve replacement, prophylaxis venous thrombosis, atrial fibrillation). 2.5 - 3.5 Mechanical mitral valve or dual mechanical mitral and Aortic valve replacement. Current Interpretive Data was last revised on 2015. Blood specimen (specimen) 04/21/2018 5:11 PM SOLDER CREAM MAKER 04/21/2018 5:17 PM SOLDER CREAM MAKER Narrative [facility]OR[facility] (BRE) - 04/21/2018 5:33 PM SOLDER CREAM MAKER us Marcela Gamboa MD LAB BLOOD ORDERABLE S Final Result ANDRE [facility]OR[facility] (BRE) 1 [facility] [place] [address] documented in this encounter Visit Diagnoses Diagnosis Ureteral colic- Primary Renal colic documented in this encounter Administered Medications Inactive Administered Medications - up to 3 most recent administrations Medication Order MAR Action Action Date Dose Rate Site HYDROmorphone (DILAUDID) injection 1 mg 1 mg, intravenous, Administer over 2 Minutes, Once, On Sat04/21/18 at 1652, For 1 dose, Indications: PainIndications:Pain Given 04/21/2018 5:08 PM SOLDER CREAM MAKER 1 mg ondansetron (ZOFRAN) injection 4 mg 4 mg, intravenous, Administer over 2 Minutes, Once, On Sat04/21/18 at 1652, For 1 dose, Indications: Nausea, VomitingIndications:Nausea, Vomiting Given 04/21/2018 5:08 PM SOLDER CREAM MAKER 4 mg sodium chloride 0.9% bolus 1,000 mL 1,000 mL, intravenous, at 1,000 mL/hr, Administer over 1 Hours, Once, On Sat04/21/18 at 1652, For 1 dose New Bag 04/21/2018 5:08 PM SOLDER CREAM MAKER 1,000 mL 1000 mL/hr documented in this encounter Active and Recently Administered Medications Times are shown in SOLDER CREAM MAKER. Scheduled Medication Order 04/19/2018 04/20/2018 04/21/2018 HYDROmorphone (DILAUDID) injection 1 mg (COMPLETED) 1 mg, intravenous, Administer over 2 Minutes, Once, On Sat04/21/18 at 1652, For 1 dose, Indications: Pain 1708 (Given - Provid er: Karina Vieira RN) ondansetron (ZOFRAN) injection 4 mg (COMPLETED) 4 mg, intravenous, Administer over 2 Minutes, Once, On Sat04/21/18 at 1652, For 1 dose, Indications: Nausea, Vomiting 1708 (Given - Provid er: Karina Vieira RN) sodium chloride 0.9% bolus 1,000 mL (COMPLETED) 1,000 mL, intravenous, at 1,000 mL/hr, Administer over 1 Hours, Once, On Sat04/21/18 at 1652, For 1 dose 1708 (New Bag - Prov ider: Karina Vieira RN)1844 (Stopped - Provider: Karina Vieira RN) documented in this encounter Care Teams Early Childhood Associate Teacher Relationship Specialty [place] [address] [facility] [address] [place] [address] Rheumatology 02/21/17 Lashay Downs, RN Registered Nurse Pain Management 06/17/17 Duke Do, RN Registered Nurse 09/09/17 documented as of this encounter
--- OUTSIDE RECORDS SUMMARY | 2024-06-14 16:51 | XMS_ITS | Encounter Summary ---
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 Gender Identity Not on file Sexual Orientation Not on file documented as of this encounter Progress Notes * Ara Avery PTA - 08/13/2018 9:45 AM CDT PT Daily Treatment Note Samuel Sanchez 1945 Subjective: Pain: 5/10 right low back He states that he woke with increased discomfort today 0/10 after treatment Objective: Palpation reveals diffuse tenderness throughout the right low back region Treatment Provided: He was seen today for the application of moist heat in conjunction to bipolar stimulation to the right lumbar region followed by passive stretching to his low back and lower extremities He continues with a course of active exercises His HEP was also reviewed Assessment: He continues to be receptive to the current treatment program He is taking an active role in his HEP His pain is diminished after his treatment Plan: continue progressing as ordered Start Time: 9:45 End Time:10:25 Ara Avery PTA documented in this encounter Plan of Treatment Not on file documented as of this encounter Visit Diagnoses Diagnosis Lumbar spondylosis- Primary Lumbosacral spondylosis without myelopathy documented in this encounter Care Teams Wallboard Worker Relationship Specialty [place] [id number] [address] Rheumatology 02/21/17 Lashay Downs, GAY Registered Nurse Pain Management 06/17/17 Duke Do, RN Registered Nurse 09/09/17 documented as of this encounter
--- OUTSIDE RECORDS SUMMARY | 2024-06-14 16:51 | XMS_ITS | Encounter Summary ---
Author Organization [facility] Address [address] [facility] [address] [place] [address] Care Team Providers Care Sharepoint Administrator Name Role Phone Criss Blanco MD Unavailable Lashay Downs RN Unavailable Unavailab Duke Goodwin RN Unavailable Unavailabl e Reason for Referral * Consultation (Routine) - Closed Specialty Diagnoses / Procedures Referred By Alcira t Referred To Contact Physical Therapy Diagnoses Lumbar spondylosis Timmy Bañuelos MD Phone: tel: fax: [address] [address] Referral ID Status Reason Start Date Expiration Date V isits Requested Visits Authorized [id number] Closed Specialty Services Required 07/28/2018 02/06/2020 12 12 Question Answer PTRFR PT Evaluate and Treat Therapy options discussed with patient? Yes Location provided for therapy services is: Patient requested/Patient preferred Please select the performing region: [facility] [[id number]] Comments Lumbar core non-op Frequency 2-3 x weekly Duration 4-6 weeks Physical therapy to include: core strengthening, stretching, balances training, and general aerobic conditioning; limited modalities as needed. May add pool therapy if appropriate. Teach a home exercise regimen. IVING OPERATOR * Diagnostic Imaging (Routine) - Closed Specialty Diagnoses / Procedures Referred By Contac t Referred To Contact Diagnoses Discogenic low back pain Procedures XR Spine Lumbar Complete 4 View Timmy Bañuelos MD Phone: tel: fax: [facility] Referral ID Status Reason Start Date Expiration Date Visits Re quested Visits Authorized [id number] Closed 07/28/2018 02/06/2020 1 1 IVING OPERATOR Reason for Visit * Reason Comments New Patient Pain Encounter Details Date Type Department Care Team (Late st Contact Info) Description 07/28/2018 10:15 AM RECEIVING OPERATOR Office Visit [facility] [id number] [address] Timmy Bañuelos [place] [address] [address] Lumbar spondylosis (Primary Dx) Social History Tobacco Use Types Packs/Day Years Used Date Smoking Tobacco: Former Cigarettes 2 30 Smokeless Tobacco: Never Comments:Smoking History Pac ks/day: 2 Packs Alcohol Use Standard Drinks/Week Comments Yes 2 (1 standard drink = 0.6 oz pur e alcohol) Sex and Gender Information Value Date Recorded Sex Assigned at Not on file Legal Sex Male 12:56 AM RECEIVING OPERATOR Gender Identity Not on file Sexual Orientation Not on file documented as of this encounter Last Filed Vital Signs Vital Sign Reading Time Taken Comments Blood Pressure 122/87 07/28/2018 10:52 AM RECEIVING OPERATOR Pulse - - Temperature - - Respiratory Rate - - Oxygen Saturation - - Inhaled Oxygen Concentration - - Weight 99.8 kg (220 lb) 07/28/2018 10:52 AM RECEIVING OPERATOR Height 185.4 cm (6' 1 ) 07/28/2018 10:52 AM RECEIVING OPERATOR Body Mass Index 29.03 07/28/2018 10:52 AM RECEIVING OPERATOR documented in this encounter Ordered Prescriptions Prescription Sig Dispense Quantity Refills Last Filled Start Date End Date meloxicam (MOBIC) 15 mg tablet Take 1 tablet (15 mg total) by mouth daily. Do not take with other NSAIDs 90 tablet 1 07/28/2018 9 methylPREDNISolone (MEDROL, RADHA,) 4 mg Dosepack follow package directions 21 tablet 07/28/2018 9 documented in this encounter Progress Notes * Timmy Bañuelos MD - 07/28/2018 10:15 AM CST Chief Complaint Patient presents with ??? Lumbar Spine - Pain ??? New Patient HPI This is a clinic note for a consultation by the requesting physician ZOILA Kuo for low back pain. Samuel Sanchez is a pleasant 73 y.o. male who presents today with for evaluation of right lowerback pain. Patient mention that the pain is located just on the insertion of the paraspinal muscleson the top of the iliac crest on the right side. It is reducible to pressure. He denies having any radiation down his lower extremities. He rates his back pain as a 5/10. He mention is symptoms have becoming more persistent. He endorses sensation of sharp. He denies having any problems with dexterity fine motor activities. He mention that flexing forward makes her symptoms feel better while sitting and standing aggravates symptoms. He has been able to tolerate his symptoms due to postural activity modifications but recently he has been unable to obtain relief from either 1 of these. He has undergone a series of injections by Dr. Mackey to no symptomatic relief. And mainly because of this he was sent to my clinic after an MRI was obtained to discuss further options for symptomatic relief. 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 She weighs a little bit over 200 lb. Patient denies problems with hand dexterity, buttoning shirts, fine motor activities. He also denies problems with gait and balance. He deniesbowel or bladder difficulties such as retention or incontinence. He denies any history of cancer or tumor, car accident, fall from height, illicit drug or substanceabuse, infections in your spine, previous spine surgery and osteoporosis. Treatment efforts have included Physical Therapy, Corticosteriod Injections or Epidural Steroid Injections in your back or neck and Muscle relaxant medications, without relief. PAST MEDICAL HISTORY He has a past medical history of Arthritis; Calculus of kidney; Gastroesophageal reflux disease; History of multiple allergies; OTHER MEDICAL (1980); OTHER MEDICAL (1981); OTHER MEDICAL (1985); OTHERMEDICAL (1962); OTHER MEDICAL (1977); OTHER MEDICAL; OTHER MEDICAL (1980); OTHER MEDICAL (1993); OTHER MEDICAL (2000); OTHER MEDICAL; OTHER MEDICAL; OTHER MEDICAL; and Malignant neoplasm of prostate ([facility]) (1998). PAST SURGICAL HISTORY He has a past surgical history that includes Other surgical history; Other surgical history (1988);and Other surgical history. MEDICATIONS He has a current medication list which includes the following prescription(s): biotin, diazepam, folic acid, glucosamine-chondroitin, hydrocodone- acetaminophen, hydrocodone-acetaminophen, meloxicam, methotrexate, methylprednisolone, methylprednisolone, hfwpavduqylf-pz-ecvs-minerals, omeprazole, oxycodone-acetaminophen, potassium, ranitidine, tamsulosin, and tizanidine. ALLERGIES He is allergic to hydrocodone-acetaminophen and hydrocodone. SOCIAL HISTORY He reports that he has quit smoking. His smoking use included Cigarettes. He has a 60.00 pack-year smoking history. He has never used smokeless tobacco. He reports that he drinks about 1.2 oz of alcohol per week . He reports that he does not use drugs. FAMILY HISTORY His family history includes Diabetes in his father; Other in some other family members. Review of Systems Constitutional: Negative for chills and fever. HENT: Negative for hearing loss and tinnitus. Eyes: Negative for blurred vision and redness. Respiratory: Negative for cough and shortness of breath. Cardiovascular: Negative for chest pain and palpitations. Gastrointestinal: Positive for heartburn. Negative for constipation and diarrhea. Genitourinary: Negative for dysuria and frequency. Musculoskeletal: Positive for back pain. Skin: Negative for itching and rash. Neurological: Positive for headaches. Negative for dizziness, tingling and sensory change. Endo/Heme/Allergies: Does not bruise/bleed easily. Psychiatric/Behavioral: Negative for depression. The patient is not nervous/anxious. Physical Exam Constitutional: He is oriented to person, place, and time. He appears well- developed and well-nourished. No distress. HENT: Head: Normocephalic and atraumatic. Eyes: Conjunctivae and EOM are normal. Neck: Normal range of motion. No tracheal deviation present. No thyromegaly present. Cardiovascular: Regular rhythm. Pulmonary/Chest: Effort normal. No respiratory distress. Abdominal: He exhibits no distension. Musculoskeletal: He exhibits no edema or tenderness. Neurological: He is alert and oriented to person, place, and time. Skin: Skin is warm and dry. He is not diaphoretic. Psychiatric: He has a normal mood and affect. His behavior is normal. Judgment and thought content normal. C Spine Right strength The patient has 5/5 strength throughout. Left strength The patient has 5/5 strength throughout. Right neurovascular Patient has normal light touch sensation. Left neurovascular The patient has normal light touch sensation. Right reflexes Bicep reflex: 2+ Tricep reflex: 2+ Brachial radialis reflex: 2+ Patellar reflex: absent Achilles reflex: 1+ Babinski: downgoing Clonus: <=2 beats De La Cruz's reflex: negative Inverted radial reflex: negative Left reflexes Bicep reflex: 2+ Tricep reflex: 2+ Brachial radialis reflex: 2+ Patellar reflex: absent Achilles reflex: 1+ Babinski: downgoing Clonus: <=2 beats De La Cruz's reflex: negative Inverted radial reflex: negative Romberg: negative Spine Inspection Patient has normal inspection of the thoracic spine. Right strength The patient has 5/5 strength throughout. Left strength Patient has 5/5 strength throughout. Right neurovascular The patient has normal light touch sensation. Left neurovascular The patient has normal light touch sensation. Tests Right straight leg raise: negative Left straight leg raise: negative Right hip Strength Knee flexion: 5/5. Left hip Strength Knee flexion: 5/5. REVIEW OF X-RAYS/STUDIES/LABS XR Spine Lumbar Complete 4 View AP, lateral, flexion-extension of the lumbar spine was interpreted. It demonstrates evidence of severe spondylosis diffusely throughout the lumbar spine. There is no evidence of degenerative spondylolisthesis. There is no coronal deformity seen on AP. And his spine is stable to flexion-extension. The lumbar spine was interpreted. It demonstrates diffuse spondylosis throughout the lumbar spine. There is very mild at best central and lateral recess stenosis diffusely throughout the lumbar spine. There is also very mild foraminal stenosis that is seen throughout the lumbar spine. Impression: 1. Lumbar spondylosis My impression is lumbar spondylosis with his main complaint being paraspinal pain to the right lower back. He has no radicular component to his symptoms. There is also no significant stenosis on his MRI. Plan: I went over the history, physical exam, and imaging with Samuel Sanchez and discussed options going forward. Due to his symptoms, the plan and teachings below were discussed. Plan is to undergo conservative measures discussed below with stressing of core strength and anti-inflammatories. We reviewed the patients history, symptoms, exam findings, and imaging today. The typical management of this condition may include lifestyle modification, NSAIDs, physical therapy, oral steroids, epidural injections, neuromodulatory medications, and sometimes pain medications. Based on our discussion today we would like to have the patient initiate our recommendations for continued conservative therapy with physical therapy for core strengthening, meloxicam for anti-inflammatory and another trial of Medrol Dosepak in the treatment of their condition noted in the assessment section. The appropriate use, side effects, drug interactions, and typical dosing instructions of any or all medications prescribed were discussed and explained to the patient, as were possible concerns with the other treatments prescribed. They were instructed to call immediately if any concerns or adverse reactions arise, or symptoms worsen. Orders Placed This Encounter Procedures ??? XR Spine Lumbar Complete 4 View ??? Ambulatory referral order to Physical Therapy - New Medications Ordered This Visit ??? methylPREDNISolone (MEDROL, RADHA,) 4 mg Dosepack Sig: follow package directions Dispense: 21 tablet Refill: 0 ??? meloxicam (MOBIC) 15 mg tablet Sig: Take 1 tablet (15 mg total) by mouth daily. Do not take with other NSAIDs Dispense: 90 tablet Refill: 1 Follow up: Patient will follow up in 6 week(s). Timmy Bañuelos MD IVING OPERATOR documented in this encounter Plan of Treatment Scheduled Referrals Name Type Priority Associated Diagnoses Order Schedule Ambulatory referral order to Physical Therapy - Outpatient Referral Routine Lumbar spondylosis 1 Occurrences starting 07/28/2018 until 01/25/2019 documented as of this encounter Procedures Procedure Name Priority Date/Time Associated Diagnosis Comments XR SPINE LUMBAR COMPLETE 4 OR MORE VIEWS Schedule Routine, Read Routine (OP Routine) 07/28/2018 11:18 AM RECEIVING OPERATOR Lumbar spondylosis documented in this encounter Results * XR Spine Lumbar Complete 4 View (07/28/2018 11:18 AM RECEIVING OPERATOR) Anatomical Region Laterality Modality Spine N/A Radiographic Corin ging Narrative 07/28/2018 11:51 AM RECEIVING OPERATOR AP, lateral, flexion-extension of the lumbar spine was interpreted. ??It demonstrates evidence of severe spondylosis diffusely throughout the lumbar spine. ??There is no evidence of degenerative spondylolisthesis. ?? There is no coronal deformity seen on AP. ??And his spine is stable to flexion-extension. us Timmy Bañuelos MD IMG XR PROCEDURES Mariaa l Result documented in this encounter Visit Diagnoses Diagnosis Lumbar spondylosis- Primary Lumbosacral spondylosis without myelopathy documented in this encounter Care Teams Sharepoint Administrator Relationship Specialty [place] [address] [facility] [address] [place] [address] Rheumatology 02/21/17 Lashay Downs, RN Registered Nurse Pain Management 06/17/17 Duke Do, RN Registered Nurse 09/09/17 documented as of this encounter
--- OUTSIDE RECORDS SUMMARY | 2024-06-14 16:51 | XMS_ITS | Encounter Summary ---
Author Organization [facility] Healthcare Address [address] [place] [address] Care Team Providers Care Supervisor Vendor Quality Name Role Phone Criss Blanco MD Unavailable Lashay Downs RN Unavailable Unavailab Duke Goodwin RN Unavailable Unavailabl e Encounter Details Date Type Department Care Team (Late st Contact Info) Description 12/19/2018 8:03 AM CDT Hospital Encounter [facility] OP INTERIM Anjel Caballero MD [address] [facility] [address] [address] Social History Tobacco Use Types Packs/Day Years Used Date Smoking Tobacco: Former Cigarettes 2 30 Smokeless Tobacco: Never Comments:Smoking History Pac ks/day: 2 Packs Alcohol Use Standard Drinks/Week Comments Yes 2 (1 standard drink = 0.6 oz pur e alcohol) Sex and Gender Information Value Date Recorded Sex Assigned at Not on file Legal Sex Male 12:56 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 D.O.B: 1945 ? Exam Date: 12/19/18 ?? 0807 ?? Age: 73 ?Sex: Male ? MR#: [id number] ?? Loc: ? RADIOLOGY REPORT ?? Order #[id number] ?? Radiology ? Abdomen 1 View ? Signed ?? EXAM DESCRIPTION: ??Abdomen 1 View ? REASON FOR STUDY: ??Follow up renal stones; no abdominal complaints ? TECHNIQUE: ??An AP view of the abdomen is performed on a total of 2 exposures. ? COMPARISON: ??06/04/2018. ? FINDINGS: ? Again seen are several small stones overlying the inferior poles of both ?? kidneys, measuring no greater than 3 mm. ? Bowel gas pattern is non-specific, due to a paucity of bowel gas in the right ?? hemiabdomen. ? Phleboliths overlie the pelvis. ??Atheromatous vascular calcifications are ?? present. ??Both hemidiaphragms are incompletely imaged. ? IMPRESSION: ??Several small calcified densities overlying the inferior pole of ?? both kidneys, measuring no greater than 3 mm. ??Findings appear unchanged from ?? previous examination. ? THIS IS AN ELECTRONICALLY VERIFIED FINAL REPORT ?? 12/19/2018 2:59 PM - Electronically signed by Chidi Williamson M.D. ?? Chidi Williamson M.D. ? RT ?? D: ??12/19/2018 2:59 PM ?? T: ? Report ID: [id number] ?? Reading Location: ??[id number] ? REPORT ELECTRONICALLY SIGNED IN OTHER VENDOR SYSTEM ?? Resulting Agency Comment O Procedure Note Chidi Williamson MD - 12/19/2018 Patient Name: SAMUEL HUFFMAN Dr: Anjel Caballero MD D.O.B: 1945 Exam Date: 12/19/18806 Age: 73 Sex: Male MR#: [id number] Loc: RADIOLOGY REPORT Order #[id number] Radiology Abdomen 1 View Signed EXAM DESCRIPTION: Abdomen 1 View REASON FOR STUDY: Follow up renal stones; no abdominal complaints TECHNIQUE: An AP view of the abdomen is performed on a total of 2exposures. COMPARISON: 06/04/2018. FINDINGS: Again seen are several small stones overlying the inferior poles of both kidneys, measuring no greater than 3 mm. Bowel gas pattern is non-specific, due to a paucity of bowel gas in theright hemiabdomen. Phleboliths overlie the pelvis. Atheromatous vascular calcifications are present. Both hemidiaphragms are incompletely imaged. IMPRESSION: Several small calcified densities overlying the inferiorpole of both kidneys, measuring no greater than 3 mm. Findings appear unchangedfrom previous examination. THIS IS AN ELECTRONICALLY VERIFIED FINAL REPORT 12/19/2018 2:59 PM - Electronically signed by Chidi Williamson M.D. RT T: Report ID: [id number] Reading Location: [place] [address] REPORT ELECTRONICALLY SIGNED IN OTHER VENDOR SYSTEM us Anjel Caballero MD IMG XR PROCEDURES Mariaa l Result documented in this encounter Visit Diagnoses Not on filedocumented in this encounter Care Teams Supervisor Vendor Quality Relationship Specialty [place] [address] [facility] [address] [place] [address] Rheumatology 02/21/17 Lashay Downs, RN Registered Nurse Pain Management 06/17/17 Duke Do, GAY Registered Nurse 09/09/17 documented as of this encounter
--- OUTSIDE RECORDS SUMMARY | 2024-06-14 16:51 | XMS_ITS | Encounter Summary ---
Author Organization [facility] Healthcare Address [address] [place] [address] Care Team Providers Care Superintendent Sales Name Role Phone Criss Blanco MD Unavailable Lashay Downs RN Unavailable Unavailab Duke Goodwin RN Unavailable Unavailabl e Encounter Details Date Type Department Care Team (Late st Contact Info) Description 10/04/2017 8:45 AM CDT - 10/04/2017 9:00 AM CDT Surgery [facility] 2 [facility] [address] [place] [address] Clive Mackey MD [address] [place] [address] [address] [place] [address] Injection Epidural Lumbar/Caudal 1 Level Pain Pump Trial [facility] [address] Surgery Details Date/Time Status Location OR Service Patient Class Case Class Case Type Trauma Case? 10/04/2017 8:45 AM Posted [facility] Pain Management Procedure Center [facility] PM 1 Pain Management Outpatient Elective Panel 1 Procedure LRB Anes Op Region Wound Class Comments Injection Epidural Lumbar/Ca udal 1 Level Pain Pump Trial [facility] [address] N/A Local Back Surgeon Surgeon Role Service Panel Clive Mackey MD Primary Pain Management 1 Case Notes L5-S1 TLESI (3RD) documented in this encounter Social History Tobacco Use Types Packs/Day Years Used Date Smoking Tobacco: Former Cigarettes 2 30 Smokeless Tobacco: Never Comments:Smoking History Pac ks/day: 2 Packs Alcohol Use Standard Drinks/Week Comments Yes 2 (1 standard drink = 0.6 oz pur e alcohol) Sex and Gender Information Value Date Recorded Sex Assigned at Not on file Legal Sex Male 12:56 AM FISHER NET Gender Identity Not on file Sexual Orientation Not on file documented as of this encounter Last Filed Vital Signs Vital Sign Reading Time Taken Comments Blood Pressure 121/83 10/04/2017 8:59 AM CDT Pulse 73 10/04/2017 8:59 AM CDT Temperature 35.8 ??C (96.4 ??F) 10/04/2017 8:47 AM CD T Respiratory Rate - - Oxygen Saturation 98% 10/04/2017 8:59 AM CDT Inhaled Oxygen Concentration - - Weight - - Height - - Body Mass Index - - documented in this encounter Discharge Instructions * Discharge Instructions* Duke Do RN - 10/04/2017 8:55 AM CDT Discharge instructions reviewed. Signed copy given to patient. Patient verbalized understanding. Patient to return PRN. documented in this encounter Medications at Time [...] needed for pain. 90 tablet 10/04/2017 01/30/2019 grctnmeodnhu-Pw-c foreign-minerals 18-0.4 mg tabletIndications :Mineral Deficiency Prevention,Vitami [...] 05/16/2017 01/30/2019 documented as of this encounter Discharge Disposition Disposition Code Departure Means Destination Discharge to home or self care documented in this encounter Miscellaneous Notes * Op Note - Clive Mackey MD - 10/04/2017 8:45 AM CDT Lumbar Epidural Injection Patient comes in today for planned injection therapy. He comes in today for the final LESI in this series. Patient was brought to procedure room, and placed on the x-ray table in the prone position. A time out was performed to identify the patient and procedure. Lower back was prepped with chlorhexidine and draped in an sterile manner. C-arm was brought to the field and rotated to demonstrate the L5-S1 interspace approach to best advantage. Skin and subcutaneous tissues on a median line were anesthetized with 1% lidocaine using a 25G needle. Next, a 22G Cricket needle was passed on the same path until ligament engagement was felt. The C-arm was then rotated to the lateral view and the needle advanced until the loss of resistance to saline was obtained. Next, 2mL of Omnipaque 240 was injected. This demonstrated epidural spread bilat L4-5 thru sacral levels. This was followed with 10mL of dexamethasone in 2cc of saline. The needle was removed, sterile dressing applied, and patient returned to their pain clinic room. Following observation and vital signs, patient will be discharged home. Problem List: Active Problems: Discogenic low back pain documented in this encounter Plan of Treatment Not on file documented as of this encounter Procedures Procedure Name Priority Date/Time Associated Diagnosis Comments XR SPINE LUMBAR 2 OR 3 VIEWS IP Routine 10/04/2017 8:58 AM CDT INJECTION EPIDURAL LUMBAR/CAUDAL 1 LEVEL PAIN PUMP TRIAL W IMAGING [address] 10/04/2017 8:50 AM CDT Case Notes L5-S1 TLESI (3RD) documented in this encounter Results * XR Spine Lumbar 2 or 3 Views (10/04/2017 8:58 AM CDT) Narrative [facility] - 10/04/2017 8:58 AM CDT The images from this study are not interpreted by Radiology. ??Please refer to the physician's procedure / OR operative note. us Clive Mackey MD IMG XR PROCEDURES Final Re sult [facility] documented in this encounter Visit Diagnoses Not on filedocumented in this encounter Administered Medications Inactive Administered Medications - up to 3 most recent administrations Medication Order MAR Action Action Date Dose Rate Site dexamethasone (DECADRON) injection As needed, Starting on Sat10/04/17 at 0847, Intra-Op Given 10/04/2017 8:47 AM CDT 10 mg Back iohexol (OMNIPAQUE) 240 mg iodine/mL injection solution As needed, Starting on Sat10/04/17 at 0847, Intra-Op Given 10/04/2017 8:47 AM CDT 2 mL Back sodium chloride 0.9% solution As needed, Starting on Sat10/04/17 at 0847, Intra-Op Given 10/04/2017 8:47 AM CDT 2 mL Back documented in this encounter Active and Recently Administered Medications Times are shown in CDT. PRN Medication Order 10/02/2017 10/03/2017 10/04/2017 dexamethasone (DECADRON) injection (CANCELED) As needed, Starting on 10/04/17 at 0847, Intra-Op 0847 (Given - Provid er: Clive Mackey MD - Comment: Epidural) iohexol (OMNIPAQUE) 240 mg iodine/mL injection solution (CANCELED) As needed, Starting on 10/04/17 at 0847, Intra-Op 0847 (Given - Provid er: Clive Mackey MD) sodium chloride 0.9% solution (CANCELED) As needed, Starting on 10/04/17 at 0847, Intra-Op 0847 (Given - Provid er: Clive Mackey MD - Comment: Epidural) documented in this encounter Care Teams Superintendent Sales Relationship Specialty [place] [address] [address] Rheumatology 02/21/17 Lashay Downs, RN Registered Nurse Pain Management 06/17/17 Duke Do, RN Registered Nurse 09/09/17 documented as of this encounter
--- OUTSIDE RECORDS SUMMARY | 2024-06-14 16:51 | XMS_ITS | Encounter Summary ---
Author Organization [facility] Healthcare Address [address] [place] [address] Care Team Providers Care Acetylene Operator Name Role Phone Criss Blanco MD Unavailable Lashay Downs RN Unavailable Unavailab Duke Goodwin RN Unavailable Unavailabl e Reason for Visit * Reason Comments Sore Throat Encounter Details Date Type Department Care Team (Late st Contact Info) Description 04/18/2018 7:35 PM DRY KILN WORKER - 04/18/2018 10:05 PM [facility] Emergency [facility] Emergency Department [address] [place] [address] Viraj Andrade MD 1 [facility] [place] [address] Viral pharyngitis (Primary Dx) Discharge Disposition: Discharge to home [...] on file Legal Sex Male 12:56 AM DRY KILN WORKER Gender Identity Not on file Sexual Orientation Not on file documented as of this encounter Last Filed Vital Signs Vital Sign Reading Time Taken Comments Blood Pressure 124/84 04/18/2018 8:09 PM DRY KILN WORKER Pulse 81 04/18/2018 8:09 PM DRY KILN WORKER Temperature 36.8 ??C (98.3 ??F) 04/18/2018 8:08 PM CS T Respiratory Rate 16 04/18/2018 8:09 PM DRY KILN WORKER Oxygen Saturation 97% 04/18/2018 8:09 PM DRY KILN WORKER Inhaled Oxygen Concentration - - Weight 99.8 kg (220 lb) 04/18/2018 8:08 PM DRY KILN WORKER Height 185.4 cm (6' 1 ) 04/18/2018 8:08 PM DRY KILN WORKER Body Mass Index 29.03 04/18/2018 8:08 PM DRY KILN WORKER documented in this encounter Discharge Instructions * Discharge Instructions* Viraj Andrade MD - 04/18/2018 9:56 PM DRY KILN WORKER Please return to the ED if you developed high fever, uncontrolled nausea vomiting, or for any otherconcerns. Please keep appointment with urologist on Saturday. Recommend Flonase as directed by the bottle for symptom control. Recommend pseudoephedrine as recommended by the package insert for symptom control. For pain control of not taking pseudoephedrine please consider naproxen 2 tabs twice a day. KILN WORKER * Attachments The following attachments cannot be sent through Care Everywhere. * Pharyngitis (AfterCare(R) Instructions(ER/ED)) (Polish) * Laryngitis (General Information) (Polish) documented in this encounter Medications at Time [...] needed for pain. 90 tablet 10/04/2017 01/30/2019 oilypiwrusis-So-o foreign-minerals 18-0.4 mg tabletIndications :Mineral Deficiency Prevention,Vitami [...] documented in this encounter ED Notes * Viraj Andrade MD - 04/18/2018 9:53 PM CST HPI Chief Complaint Patient presents with ??? Sore Throat 68-year-old male with recent hospital admission for kidney stones presents with symptoms of a upperrespiratory tract infection. He states that he is recently discharged from the hospital on . His symptoms started approximately 3 days after that have progressed. Onset of symptoms started in his nose predominantly and has now moved into his throat and he is noticing vocal changes. It seems over the last couple days it has become more severe. At this time is still able to eat okay, hedenies any fevers, has got no nausea or vomiting, and changes in his bowel movements. Patient states that he has tried several different xxkj-zzb-uobswlm medications without much effect. He is worried about a possible bacterial infection and to call the office to prescribe him Keflex for a possibleUTI. Upon further questioning the patient denies any dysuria. Patient History Patient Active Problem List Diagnosis Date Noted ??? 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 Shortness of breath 12/26/2010 Class: Chronic ??? Headache 12/22/2009 Class: Chronic Past Medical History: Diagnosis Date ??? Arthritis arthritis ??? Calculus of kidney Nephrolithiasis ??? Gastroesophageal reflux disease acid reflux ??? History of multiple allergies allergies ??? HX OTHER MEDICAL 1980 L shoulder ??? HX OTHER MEDICAL 1982 [...] OTHER MEDICAL hemorroids; Comments: Had done at [facility] in [place] ??? HX OTHER MEDICAL bladder infection ??? HX OTHER MEDICAL kidney stone ??? Malignant neoplasm of prostate ([facility]) 1998 prostate Past Surgical History: Procedure [...] Systems Review of Systems Constitutional: Negative for appetite change, chills and fever. HENT: Positive for congestion, ear pain, postnasal drip, rhinorrhea, sore throat and voice change. Eyes: Negative for pain and redness. Respiratory: Positive for cough. Negative for shortness of breath. Cardiovascular: Negative for chest pain. Gastrointestinal: Negative for abdominal distention. Genitourinary: Negative for dysuria. Musculoskeletal: Negative for myalgias. Skin: Negative for rash. Neurological: Negative for syncope and light-headedness. Hematological: Negative. Psychiatric/Behavioral: Negative. All other systems reviewed and are negative. Physical Exam ED Triage Vitals Temp Pulse Resp BP SpO2 04/18/18200704/18/18200804/18/18200804/18/18200804/18/18 2009 36.8 ??C (98.3 ??F) 81 16 124/84 97 % Temp src Heart Rate Source Patient Position BP Location FiO2 (%) 04/18/182007 -- -- -- -- Temporal Physical Exam Constitutional: He is oriented to person, place, and time. He appears well- developed and well-nourished. No distress. HENT: Head: Normocephalic and atraumatic. Right Ear: No tenderness. Tympanic membrane is injected (Mild). Tympanic membrane is not bulging. No middle ear effusion. Left Ear: No tenderness. Tympanic membrane is perforated (old). Tympanic membrane is not bulging. No middle ear effusion. Nose: Rhinorrhea present. Mouth/Throat: Mucous membranes are normal. No oral lesions. Posterior oropharyngeal erythema (Mild)present. No oropharyngeal exudate or tonsillar abscesses. Neck: Normal range of motion. Cardiovascular: Normal rate, regular rhythm, normal heart sounds and intact distal pulses. Pulmonary/Chest: Effort normal and breath sounds normal. Neurological: He is alert and oriented to person, place, and time. Skin: Skin is warm and dry. Capillary refill takes less than 2 seconds. No rash noted. He is not diaphoretic. Psychiatric: He has a normal mood and affect. His behavior is normal. Nursing note and vitals reviewed. MDM MDM Number of Diagnoses or Management Options Viral pharyngitis: Diagnosis management comments: 68-year-old gentleman with recent hospital admission presents for signs and symptoms of upper respiratory tract infection. At this time of at no clear source for a bacterial source which is further supported by negative flu and strep cultures. At this time I think he had a likely viral sinusitis that has progressed into a viral pharyngitis and a possible laryngitis.He complained of cough enlarging sounds were clear which is reassuring. Her OB is developing a bronchitis at this moment. He has outpatient follow-up with Urology on Saturday and states he will keep his appointment. I informed him that there is no reason to prescribe antibiotics at this time. I did however provide alternative options for uduu-olq-nqgmhng symptomatic relief which she was grateful for. Initially, I also provided him information which seek further distal care or return to the ED. All questions were answered prior to discharge patient was discharged in stable condition back to home with appropriate outpatient follow-up. Viral pharyngitis Viraj Andrade MD 04/19/18 0031 KILN WORKER * Viraj Hendricks RN - 04/18/2018 8:07 PM CST Cold and sore throat x 6 days. NAD. KILN WORKER documented in this encounter Plan of Treatment Not on file documented as of this encounter Procedures Procedure Name Priority Date/Time Associated Diagnosis Comments INFLUENZA A/B ANTIGEN STAT 04/18/2018 8:15 PM DRY KILN WORKER GROUP A STREP, RAPID SCREEN GEN LAB STAT 04/18/2018 8:15 PM DRY KILN WORKER THROAT CULTURE STAT 04/18/2018 8:15 PM DRY KILN WORKER documented in this encounter Results * Throat culture (04/18/2018 8:15 PM DRY KILN WORKER) Report Final Report: No growth of pathogens. ANDRE ANSARI) Comment:Testing performed by : [facility], [address] [place] [address] Throat 04/18/2018 8:15 PM DRY KILN WORKER 04/19/2018 4:06 AM DRY KILN WORKER Narrative ANDRE ANSARI) - 04/20/2018 8:05 AM DRY KILN WORKER Testing performed by [facility] Microbiology Laboratory ([phone]). Clive Mccormack MD LAB MICROBIOLOGY - [facility] ORDERABLES Final Result ANDRE ANSARI) 1 [facility] Department [place] [address] * Influenza A/B Antigen Nasopharyngeal (04/18/2018 8:15 PM DRY KILN WORKER) Influenza A Ag Negative MARY MORAES (BRE) Influenza B Ag Negative MARY MORAES (BRE) Comment: The BD Veritor System for [...] antigens. Interpretive data last reviewed 2018 Nasopharyngeal 04/18/2018 8: 15 PM DRY KILN WORKER 04/18/2018 8:20 PM DRY KILN WORKER Narrative ANDRE MORAES (BRE) - 04/18/2018 8:42 PM DRY KILN WORKER Viraj Andrade MD LAB MICROBIOLOGY - GENERAL O RDERABLES Final Result Performing Organization Address City/[facility]/ZIP Co de Phone Number ANDRE MORAES (BRE) 1 [facility] [place] [address] * Group A Strep, rapid screen with reflex (04/18/2018 8:15 PM DRY KILN WORKER) Rapid Strep A Negative Negative CERSTEFANIA MORAES (BRE) Throat 04/18/2018 8:15 PM DRY KILN WORKER 04/18/2018 8:20 PM DRY KILN WORKER Narrative ANDRE MORAES (BRE) - 04/18/2018 8:41 PM DRY KILN WORKER Viraj Andrade MD LAB BODY FLUIDS AND STOOLS O RDERABLES Final Result ANDRE MORAES (BRE) 1 [facility] [address] documented in this encounter Visit Diagnoses Diagnosis Viral pharyngitis- Primary Acute pharyngitis documented in this encounter Care Teams Acetylene Operator Relationship Specialty [place] [address] [address] Rheumatology 02/21/17 Lashay Downs, GAY Registered Nurse Pain Management 06/17/17 Duke Do, RN Registered Nurse 09/09/17 documented as of this encounter
--- OUTSIDE RECORDS SUMMARY | 2024-06-14 16:51 | XMS_ITS | Encounter Summary ---
Author Organization [facility] Healthcare Address [address] [place] [address] Care Team Providers Care Interface Control Officer Name Role Phone Criss Blanco MD Unavailable Lashay Downs RN Unavailable Unavailab Duke Goodwin RN Unavailable Unavailabl e Reason for Visit * Reason Onset Date Comments Follow-up 10/07/2017 post injection Encounter Details Date Type Department Care Team (Late st Contact Info) Description 10/07/2017 Telephone [facility] 2 [facility], 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 documented in this encounter Plan of Treatment Not on file documented as of this encounter Visit Diagnoses Not on filedocumented in this encounter Care Teams Interface Control Officer Relationship Specialty [place] [address] [facility] [address] [place] [address] Rheumatology 02/21/17 Lashay Downs, RN Registered Nurse Pain Management 06/17/17 Duke Do, RN Registered Nurse 09/09/17 documented as of this encounter
--- OUTSIDE RECORDS SUMMARY | 2024-06-14 16:51 | XMS_ITS | Encounter Summary ---
Author Organization [facility] Healthcare Address [address] [place] [address] Care Team Providers Care Barber Name Role Phone Criss Blanco MD Unavailable Lashay Downs RN Unavailable Unavailab Duke Goodwin RN Unavailable Unavailabl e Encounter Details Date Type Department Care Team (Late st Contact Info) Description 10/04/2017 8:50 AM CDT Ancillary Procedure [facility] 1 [facility] [place] [address] Clive Mackey MD 2 [facility] [address] [place] [address] Social History Tobacco Use Types Packs/Day Years Used Date Smoking Tobacco: Former Cigarettes 2 30 Smokeless Tobacco: Never Comments:Smoking History Pac ks/day: 2 Packs Alcohol Use Standard Drinks/Week Comments Yes 2 (1 standard drink = 0.6 oz pur e alcohol) Sex and Gender Information Value Date Recorded Sex Assigned at Not on file Legal Sex Male 12:56 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 ADVISOR Gender Identity Not on file Sexual Orientation Not on file documented as of this encounter Plan of Treatment Not on file documented as of this encounter Procedures Procedure Name Priority Date/Time Associated Diagnosis Comments XR SPINE LUMBAR 2 OR 3 VIEWS IP Routine 10/04/2017 8:58 AM CDT documented in this encounter Results [...] on filedocumented in this encounter Care Teams Barber Relationship Specialty [place] [address] [facility] [address] [place] [address] Rheumatology 02/21/17 Lashay Downs, RN Registered Nurse Pain Management 06/17/17 Duke Do, RN Registered Nurse 09/09/17 documented as of this encounter
--- OUTSIDE RECORDS SUMMARY | 2024-06-14 16:51 | XMS_ITS | Encounter Summary ---
Author Organization [facility] Healthcare Address [address] [place] [address] Care Team Providers Care Living Advisor Name Role Phone Criss Blanco MD Unavailable Lashay Downs RN Unavailable Unavailab Duke Goodwin RN Unavailable Unavailabl e Encounter Details Date Type Department Care Team (Latest Contact Info) Description 10/04/2017 8:42 AM CDT - 10/04/2017 9:24 AM CDT Hospital Encounter 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 90 tablet 10/04/2017 01/30/2019 [id number]-u foreign-minerals 18-0.4 mg tabletIndications :Mineral Deficiency Prevention,Vitami [...] 1 LEVEL PAIN PUMP TRIAL W IMAGING [id number] 10/04/2017 8:50 AM CDT Case Notes L5-S1 [...] [facility] documented in this encounter Visit Diagnoses Diagnosis Discogenic low back pain documented in this encounter Active and Recently Administered Medications Times are shown in CDT. PRN Medication Order 10/02/2017 10/03/2017 10/04/2017 dexamethasone (DECADRON) injection (CANCELED) As needed, Starting on 10/04/17 at 0847, Intra-Op 0847 (Given - Provid er: Clive Mackey MD - Comment: Epidural) iohexol (OMNIPAQUE) 240 mg iodine/mL injection solution (CANCELED) As needed, Starting on Sat10/04/17 at 0847, Intra-Op 0847 (Given - Provid er: Clive Mackey MD) sodium chloride 0.9% solution (CANCELED) As needed, Starting on 10/04/17 at 0847, Intra-Op 0847 (Given - Provid er: Clive Mackey MD - Comment: Epidural) documented in this encounter Orders Medications Ordered That Quinn ht Not Have Been Administered Count Last Ordered Date First Ordered Date dexamethasone (DECADRON) injection 1 2017 iohexol (OMNIPAQUE) 240 mg i odine/mL injection solution 1 10/04/2017 sodium chloride 0.9% solution 1 10/04/2017 documented in this encounter Care Teams Living Advisor Relationship Specialty [place] [id number] [address] Rheumatology 02/21/17 Lashay Downs, GAY Registered Nurse Pain Management 06/17/17 Duke Do, RN Registered Nurse 09/09/17 documented as of this encounter
--- OUTSIDE RECORDS SUMMARY | 2024-06-14 16:51 | XMS_ITS | Encounter Summary ---
Author Organization [facility] Address [address] [facility] [address] [place] [address] Care Team Providers Care Echocardiography Radiology Technologist Name Role Phone Criss Blanco MD Unavailable Lashay Downs RN Unavailable Unavailab Duke Goodwin RN Unavailable Unavailabl e Reason for Visit * Reason Comments GERD takes OTC omeprazole and Zantac Encounter Details Date Type Department Care Team (Latest Contact Info) Description 07/01/2018 1:30 PM PROCUREMENT CLERK Office Visit [facility] Gastroenterology at [address] [place] [phone] Kevin Carpio MD [address] [place] [address] [address] [place] [address] Dyspepsia (Primary Dx) Social History Tobacco Use Types Packs/Day Years Used Date Smoking Tobacco: Former Cigarettes 2 30 Smokeless Tobacco: Never Comments:Smoking History Pac ks/day: 2 Packs Alcohol Use Standard Drinks/Week Comments Yes 2 (1 standard drink = 0.6 oz pur e alcohol) Sex and Gender Information Value Date Recorded Sex Assigned at Not on file Legal Sex Male 12:56 AM PROCUREMENT CLERK Gender Identity Not on file Sexual Orientation Not on file documented as of this encounter Last Filed Vital Signs Vital Sign Reading Time Taken Comments Blood Pressure 118/74 07/01/2018 1:32 PM PROCUREMENT CLERK Pulse 80 07/01/2018 1:32 PM PROCUREMENT CLERK Temperature 36.8 ??C (98.3 ??F) 07/01/2018 1:32 PM CS T Respiratory Rate - - Oxygen Saturation 97% 07/01/2018 1:32 PM PROCUREMENT CLERK Inhaled Oxygen Concentration - - Weight 101.5 kg (223 lb 12.8 oz) 07/01/2018 1:32 PM PROCUREMENT CLERK Height 185.4 cm (6' 1 ) 07/01/2018 1:32 PM PROCUREMENT CLERK Body Mass Index 29.53 07/01/2018 1:32 PM PROCUREMENT CLERK documented in this encounter Patient Instructions * Patient Instructions* Kevin Carpio MD - 07/01/2018 1:30 PM PROCUREMENT CLERK nexium and fruit UREMENT CLERK documented in this encounter Progress Notes * Kevin Carpio MD - 07/01/2018 1:30 PM CST Subjective/Objective Patient ID: Samuel Sanchez is a 73 y.o. male. Chief Complaint GERD (takes OTC omeprazole and Zantac) dyspepsia GERD Pertinent negatives include no abdominal pain, arthralgias, chest pain, fatigue, joint swelling, myalgias, nausea, rash, sore throat or vomiting. Review of Systems Constitutional: Negative for appetite change, fatigue and unexpected weight change. HENT: Negative for dental problem, sore throat and trouble swallowing. Eyes: Negative for photophobia. Respiratory: Negative for shortness of breath and wheezing. Cardiovascular: Negative for chest pain, palpitations and leg swelling. Gastrointestinal: Negative for abdominal pain, blood in stool, constipation, diarrhea, nausea, rectal pain and vomiting. Endocrine: Negative. Negative for polydipsia and polyphagia. Genitourinary: Negative for difficulty urinating. Musculoskeletal: Negative for arthralgias, back pain, gait problem, joint swelling and myalgias. Skin: Negative. Negative for pallor and rash. Allergic/Immunologic: Negative for food allergies and immunocompromised state. Neurological: Negative. Hematological: Negative. Psychiatric/Behavioral: Negative. Physical Exam Constitutional: He is oriented to person, place, and time. He appears well- developed and well-nourished. HENT: Nose: Nose normal. Mouth/Throat: Oropharynx is clear and moist. Eyes: Conjunctivae and lids are normal. Neck: Trachea normal. No thyroid mass and no thyromegaly present. Cardiovascular: Normal rate, regular rhythm and normal pulses. Pulmonary/Chest: Effort normal and breath sounds normal. Abdominal: Soft. Normal appearance and bowel sounds are normal. Neurological: He is alert and oriented to person, place, and time. Skin: Skin is warm and dry. Psychiatric: He has a normal mood and affect. Assessment/Plan Diagnoses and all orders for this visit: Dyspepsia (R10.13) (Primary) Assessment & Plan: Lifelong 'upset stomachj this relieved by adding 2 nocturnal rolaids to his regimen of omeprazol 20 in am and zantac 300HS. EGD abnd colon 2011 normal. Also c/o urgent loose stools after large meal.Diet coffee in the morn, lunch maybe and dinner frozen or instnt. Advised trial of better acid suppression with nexium 40 in am and 20 hs, Increase fibe with fruit tid. UREMENT CLERK documented in this encounter Miscellaneous Notes * Assessment & Plan Note - Kevin Carpio MD - 07/01/2018 2:05 PM PROCUREMENT CLERK Associated Problem(s): Dyspepsia Lifelong 'upset stomachj this relieved by adding 2 nocturnal rolaids to his regimen of omeprazol 20 in am and zantac 300HS. EGD abnd colon 2011 normal. Also c/o urgent loose stools after large meal.Diet coffee in the morn, lunch maybe and dinner frozen or instnt. Advised trial of better acid suppression with nexium 40 in am and 20 hs, Increase fibe with fruit tid. UREMENT CLERK documented in this encounter Plan of Treatment Not on file documented as of this encounter Visit Diagnoses Diagnosis Dyspepsia- Primary Dyspepsia and other specified disorders of function of stomach documented in this encounter Historical Medications * This list may reflect changes made after this encounter. glucosamine-chond roitin 250-200 mg tablet Take by mouth. 01/30/2019 potassium 99 mg tablet Take by mouth. 02/06/2019 methotrexate 2.5 mg tabletIndications :Rheumatoid Arthritis,8 tabs weekly Take 20 mg by mouth once a week 05/29/2019 added in this encounter Care Teams Echocardiography Radiology Technologist Relationship Specialty [place] [address] [facility] [address] [place] [address] Rheumatology 02/21/17 Lashay Downs, RN Registered Nurse Pain Management 06/17/17 Duke Do, RN Registered Nurse 09/09/17 documented as of this encounter
--- OUTSIDE RECORDS SUMMARY | 2024-06-14 16:51 | XMS_ITS | Encounter Summary ---
Author Organization [facility] Address [address] [facility] [address] [place] [address] Care Team Providers Care Rabbit Dresser Name Role Phone Criss Blanco MD Unavailable Lashay Downs RN Unavailable Unavailab Duke Goodwin RN Unavailable Unavailabl e Encounter Details Date Type Department Care Team (Late st Contact Info) Description 07/30/2018 Orders Only [facility] Health Information Management [address] [place] [address] Scanning, Provider Social History Tobacco Use Types Packs/Day Years Used Date Smoking Tobacco: Former Cigarettes 2 30 Smokeless Tobacco: Never Comments:Smoking History Pac ks/day: 2 Packs Alcohol Use Standard Drinks/Week Comments Yes 2 (1 standard drink = 0.6 oz pur e alcohol) Sex and Gender Information Value Date Recorded Sex Assigned at Not on file Legal Sex Male 12:56 AM FIRE PREVENTION ENGINEER Gender Identity Not on file Sexual Orientation Not on file documented as of this encounter Plan of Treatment Not on file documented as of this encounter Procedures Procedure Name Priority Date/Time Associated Diagnosis Comments SCAN - RADIOLOGY/IMAGING 07/30/2018 9:33 AM FIRE PREVENTION ENGINEER documented in this encounter Results * SCAN - RADIOLOGY/IMAGING (07/30/2018 9:33 AM FIRE PREVENTION ENGINEER) Anatomical Region Laterality Modality Other us Provider Scanning Final Result documented in this encounter Visit Diagnoses Not on filedocumented in this encounter Care Teams Rabbit Dresser Relationship Specialty [place] [address] [facility] [address] [place] [address] Rheumatology 02/21/17 Lashay Downs, RN Registered Nurse Pain Management 06/17/17 Duke Do, RN Registered Nurse 09/09/17 documented as of this encounter
--- OUTSIDE RECORDS SUMMARY | 2024-06-14 16:52 | XMS_ITS | Encounter Summary ---
Author Organization [facility] Healthcare Address [address] [place] [address] Care Team Providers Care Stranding Machine Operator Helper Name Role Phone Criss Blanco MD Unavailable Lashay Downs RN Unavailable Unavailab le Encounter Details Date Type Department Care Team (Latest Contact Info) Description 07/16/2017 8:47 AM POWER PRESS SUPERVISOR - 07/16/2017 9:23 AM POWER PRESS SUPERVISOR Hospital Encounter [facility] [address] [place] [address] [place] [address] Clive Mackey MD [address] [facility] [address] [facility] [address] [place] [address] Discharge Disposition: Discharge to home or self [...] on file Legal Sex Male 12:56 AM POWER PRESS SUPERVISOR Gender Identity Not on file Sexual Orientation Not on file documented as of this encounter Last Filed Vital Signs Vital Sign Reading Time Taken Comments Blood Pressure 119/71 07/16/2017 9:20 AM POWER PRESS SUPERVISOR Pulse 84 07/16/2017 9:20 AM POWER PRESS SUPERVISOR Temperature 36.7 ??C (98 ??F) 07/16/2017 9:03 AM POWER PRESS SUPERVISOR Respiratory Rate 17 07/16/2017 9:20 AM POWER PRESS SUPERVISOR Oxygen Saturation 97% 07/16/2017 9:20 AM POWER PRESS SUPERVISOR Inhaled Oxygen Concentration - - Weight - - Height - - Body Mass Index - - documented in this encounter Medications at Time of Discharge folic acid (FOLVITE) 1 mg tablet take 1 tablet by oral route every day 30 6 05/31/2015 07/17/2017 methotrexate 2.5 mg tablet Take 8 tablets (20 mg total) by mouth once a week. 40 tablet 3 07/04/2017 08/03/2017 biotin 10,000 mcg capsuleIndicatio ns:supplement Take 1 capsule by mouth every morning 06/30/2019 cephalexin (KEFLEX) 500 mg capsule Take 500 mg by mouth 4 (four) times a day. 07/30/2017 folic acid (FOLVITE) 1 mg tabletIndication s:Folate Deficiency Take 1 mg by mouth every morning 05/29/2019 methotrexate 2.5 mg tablet take 6 Tablet by ORAL route every week 0 0 08/13/2016 07/30/2017 multivitamin-Ca- iron-minerals 18-0.4 mg tabletIndication s:Mineral Deficiency Prevention,Vitam in Deficiency Prevention Take 1 tablet by mouth every morning 06/30/2019 omeprazole (PriLOSEC) 20 mg capsule Take 20 mg by mouth daily. 02/06/2019 ranitidine (ZANTAC) 300 mg capsuleIndicatio ns:gastroesophag eal reflux disease Take 300 mg by mouth nightly 04/08/2020 SUMAtriptan (IMITREX) 100 mg tablet take 1 tablet by oral route once with fluids as early as possible after the onset of a migraine attack;may repeat after 2 hours if headache returns, not to exceed 200mgin 24hrs 0 0 04/25/2015 07/30/2017 tamsulosin (FLOMAX) 0.4 mg capsule,extended release 24hr TAKE ONE CAPSULE BY MOUTH EVERY DAY 30 capsule 4 01/28/2017 02/06/2019 tiZANidine (ZANAFLEX) 2 mg tablet Take 1 tablet (2 mg total) by mouth every 6 (six) hours as needed for muscle spasms. 15 tablet 05/16/2017 01/30/2019 traMADol (ULTRAM) 50 mg tablet Take 1 tablet (50 mg total) by mouth every 4 (four) hours as needed for pain. 20 tablet 06/09/2017 10/04/2017 documented as of this encounter Discharge Disposition Disposition Code Departure Means Destination Discharge to home or self care documented in this encounter Miscellaneous Notes * Perioperative Nursing Note - Lashay Downs RN - 07/16/2017 9:23 AM POWER PRESS SUPERVISOR Discharge instructions reviewed with pt. Verbalized understanding. Hard copy given to pt. To returnin 2 weeks for #3 injection of series. R PRESS SUPERVISOR * Perioperative Nursing Note - Lashay Downs RN - 07/16/2017 9:07 AM POWER PRESS SUPERVISOR Seen by Dr. Mackey pre procedure. Consent form reviewed and signed by pt. R PRESS SUPERVISOR * Op Note - Clive Mackey MD - 07/16/2017 9:00 AM CST Lumbar transforaminal injection The patient comes in today for planned injection therapy. He comes in today for the 2nd SNRI in this series. Patient was brought to the procedure room and positioned on an Xray table in the prone position. Prepped the Rt lower back with chlorhexidine and draped it in a sterile manner. Brought the C-arm to the field and rotated it to show the L5 vertebral body end-on. Next rotated it to the Rt side until the pedicle came into end-on view. Anesthetized the skin on a line inferior to the pedicle with 1% Lidocaine using a 25 gauge needle. Next guided a 22 gauge 5.5 inch Chiba needle on this line followingthe Xray beam until I felt the needle tip pass into the foraminal opening. Lateral Xray confirmed this position and MERCEDEZ to saline was obtained. Rotated the C-arm back to the AP view and did digital subtraction angiography using Omnipaque 240. This showed spread of dye inferior and some medial to the pedicle with concordant Sxs. Followed this with 10 mg of Dexamethasone in 1 cc of saline, removed the needle, placed a sterile dressing, and returned the patient to their clinic room. Following observation and vital signs they will be discharged home. ICD 10 code: M54.16 R PRESS SUPERVISOR documented in this encounter Plan of Treatment Not on file documented as of this encounter Procedures Procedure Name Priority Date/Time Associated Diagnosis Comments XR SPINE LUMBAR 2 OR 3 VIEWS IP Routine 07/16/2017 9:17 AM POWER PRESS SUPERVISOR INJECTION TRANSFORAMINAL LUMBO/SACRAL 1 LEVEL 07/16/2017 9:08 AM POWER PRESS SUPERVISOR Case Notes RT L5-S1 TF (2ND) documented in this encounter Results * XR Spine Lumbar 2 or 3 Views (07/16/2017 9:17 AM POWER PRESS SUPERVISOR) Narrative [facility] - 07/16/2017 9:18 AM POWER PRESS SUPERVISOR The images from this study are not interpreted by Radiology. ??Please refer to the physician's procedure / OR operative note. us Clive Mackey MD IMG XR PROCEDURES Final Re sult [facility] documented in this encounter Visit Diagnoses Not on filedocumented in this encounter Active and Recently Administered Medications Times are shown in POWER PRESS SUPERVISOR. PRN Medication Order 07/14/2017 07/15/2017 07/16/2017 dexamethasone (DECADRON) injection (CANCELED) As needed, Starting on 07/16/17 at 0913, Intra-Op 0916 (Given - Provid er: Clive Mackey MD - Comment: epidural) iohexol (OMNIPAQUE) 240 mg iodine/mL injection solution (CANCELED) As needed, Starting on 07/16/17 at 0912, Intra-Op 0915 (Given - Provid er: Clive Mackey MD) lidocaine (XYLOCAINE) 10 mg/mL (1 %) preservative free injection (CANCELED) As needed, Starting on 07/16/17 at 0912, Intra-Op 0912 (Given - Provid er: Clive Mackey MD - Comment: local) sodium chloride 0.9% solution (CANCELED) As needed, Starting on 07/16/17 at 0912, Intra-Op 0914 (Given - Provid er: Clive Mackey MD - Comment: epidural) documented in this encounter Orders Medications Ordered That Quinn ht Not Have Been Administered Count Last Ordered Date First Ordered Date dexamethasone (DECADRON) injection 1 2017 iohexol (OMNIPAQUE) 240 mg i odine/mL injection solution 1 07/16/2017 lidocaine (XYLOCAINE) 10 mg/ mL (1 %) preservative free injection 1 07/16/2017 sodium chloride 0.9% solution 1 07/16/2017 documented in this encounter Care Teams Stranding Machine Operator Helper Relationship Specialty [place] [address] [facility] [address] [place] [address] Rheumatology 02/21/17 Lashay Downs, RN Registered Nurse Pain Management 06/17/17 documented as of this encounter
--- OUTSIDE RECORDS SUMMARY | 2024-06-14 16:52 | XMS_ITS | Encounter Summary ---
Author Organization [facility] Address [address] [facility] [address] [place] [address] Care Team Providers Care Latin Dancer Name Role Phone Alberto Stanton Primary Care Provider Unavailabl e Encounter Details Date Type Department Care Team (Late st Contact Info) Description 10/06/2016 Orders Only [facility] [address] [place] [address] 1st [place] [phone] Jimenez Mckeon MD [address] [place] [id number] Social History Tobacco Use Types Packs/Day Years Used Date Smoking Tobacco: Heavy Smoker Comments:Smoking History Pac ks/day: 2 Packs Alcohol Use Standard Drinks/Week Comments No 0 (1 standard drink = 0.6 oz pur e alcohol) Sex and Gender Information Value Date Recorded Sex Assigned at Not on file Legal Sex Male 12:56 AM MATCH MAKER Gender Identity Not on file Sexual Orientation Not on file documented as of this encounter Plan of Treatment Not on file documented as of this encounter Procedures Procedure Name Priority Date/Time Associated Diagnosis Comments URINALYSIS AND REFLEX TO MICROSCOPIC AND CULTURE STAT 10/06/2016 10:55 AM CDT documented in this encounter Results * (ABNORMAL) Urinalysis reflex to microscopic and culture (10/06/2016 10:55 AM CDT) Color, ur Yellow Yellow [facility] ([facility]) Clarity, ur Clear Clear [facility] ([facility]) Specific gravity, ur 1.018 1.003 - 1.030 [facility] (BRE) Comment:Normal Ranges: 1.003 -1.030 pH, ur 5.5 4.5 - 8.0 [facility] (BRE) Comment:Normal ranges: 4.5-8 .0 Protein, ur ql Negative Negative mg/dL [facility] ([facility]) Glucose, ur ql Negative Negative mg/dL [facility] ([facility]) Ketones, ur Negative Negative [facility] ([facility]) Bilirubin, ur Negative Negative [facility] ([facility]) Blood, ur Moderate(A) Negative [facility] ([facility]) Urobilinogen, ur 0.2 0.2 - 1.0 EhrUnit/dL [facility] (BRE) Comment:Normal Ranges: 0.2-1 .0 EU/dL Nitrites, ur Negative Negative [facility] ([facility]) Leukocyte esterase, ur Negative Negative [facility] ([facility]) Urine/Blood 10/06/2016 10:5 5 AM CDT 10/06/2016 10:58 AM CDT us Jimenez Mckeon MD LAB MICROBIOLOGY - GENERAL ORD ERABLES Final Result [facility] [address] [facility] Department of Laboratories [place], [place] [id number] documented in this encounter Visit Diagnoses Not on filedocumented in this encounter Care Teams Latin Dancer Relationship Specialty Start Date End Date Alberto Stanton PCP - General 08/31/16 05/01/17 documented as of this encounter
--- OUTSIDE RECORDS SUMMARY | 2024-06-14 16:52 | XMS_ITS | Encounter Summary ---
Author Organization [facility] Healthcare Address [address] [place] [address] Care Team Providers Care Union Steward Name Role Phone Criss Blanco MD Unavailable Lashay Downs RN Unavailable Unavailab le Encounter Details Date Type Department Care Team (Late st Contact Info) Description 07/09/2017 8:35 AM SHADE CLOTH FINISHER Ancillary Procedure [facility] [address] [place] [address] Clive Mackey MD 2 [facility] [address] [place] [address] Pain Social History Tobacco Use Types Packs/Day Years Used Date Smoking Tobacco: Former Cigarettes 2 30 Smokeless Tobacco: Never Comments:Smoking History Pac ks/day: 2 Packs Alcohol Use Standard Drinks/Week Comments Yes 2 (1 standard drink = 0.6 oz pur e alcohol) Sex and Gender Information Value Date Recorded Sex Assigned at Not on file Legal Sex Male 12:56 AM SHADE CLOTH FINISHER Gender Identity Not on file Sexual Orientation Not on file documented as of this encounter Plan of Treatment Not on file documented as of this encounter Procedures Procedure Name Priority Date/Time Associated Diagnosis Comments XR SPINE LUMBAR 2 OR 3 VIEWS Schedule Routine, Read Routine (OP Routine) 07/09/2017 9:10 AM SHADE CLOTH FINISHER Pain documented in this encounter Results * XR Spine Lumbar 2 or 3 Views (07/09/2017 9:10 AM SHADE CLOTH FINISHER) Narrative [facility] - 07/09/2017 9:11 AM SHADE CLOTH FINISHER The images from this study are not interpreted by Radiology. ??Please refer to the physician's procedure / OR operative note. us Clive Mackey MD IMG XR PROCEDURES Final Re sult [facility] documented in this encounter Visit Diagnoses Diagnosis Pain Generalized pain documented in this encounter Care Teams Union Steward Relationship Specialty [place] [address] [facility] [address] [place] [address] Rheumatology 02/21/17 Lashay Downs, RN Registered Nurse Pain Management 06/17/17 documented as of this encounter
--- OUTSIDE RECORDS SUMMARY | 2024-06-14 16:52 | XMS_ITS | Encounter Summary ---
Author Organization [facility] Healthcare Address [address] [place] [address] Care Team Providers Care Etiologist Name Role Phone Criss Blanco MD Unavailable Lashay Downs RN Unavailable Unavailab le Encounter Details Date Type Department Care Team (Latest Contact Info) Description 06/25/2017 8:29 AM SPECIAL WEAPONS UNIT OFFICER - 06/25/2017 9:18 AM SPECIAL WEAPONS UNIT OFFICER Hospital Encounter [facility] [address] [place] [address] [place] [address] Clive Mackey MD 2 [facility] [address] [place] [address] Discharge Disposition: Discharge to home or self [...] on file Legal Sex Male 12:56 AM SPECIAL WEAPONS UNIT OFFICER Gender Identity Not on file Sexual Orientation Not on file documented as of this encounter Last Filed Vital Signs Vital Sign Reading Time Taken Comments Blood Pressure 114/100 06/25/2017 9:17 AM SPECIAL WEAPONS UNIT OFFICER Pulse 74 06/25/2017 9:17 AM SPECIAL WEAPONS UNIT OFFICER Temperature 36 ??C (96.8 ??F) 06/25/2017 8:45 AM SPECIAL WEAPONS UNIT OFFICER Respiratory Rate 17 06/25/2017 9:17 AM SPECIAL WEAPONS UNIT OFFICER Oxygen Saturation 98% 06/25/2017 9:17 AM SPECIAL WEAPONS UNIT OFFICER Inhaled Oxygen Concentration - - Weight - - Height - - Body Mass Index - - documented in this encounter Medications at Time of Discharge folic acid (FOLVITE) 1 mg tablet take 1 tablet by oral route every day 30 6 05/31/2015 07/17/2017 biotin 10,000 mcg capsuleIndicatio ns:supplement Take 1 capsule by mouth every morning 06/30/2019 cephalexin (KEFLEX) 500 mg capsule Take 500 mg by mouth 4 (four) times a day. 07/30/2017 methotrexate 2.5 mg tablet take 6 Tablet by ORAL route every week 0 0 08/13/2016 07/30/2017 omeprazole (PriLOSEC) 20 mg capsule Take 20 mg by mouth daily. 02/06/2019 SUMAtriptan (IMITREX) 100 mg tablet take 1 [...] or self care documented in this encounter Procedure Notes * Clive Mackey MD - 06/25/2017 8:57 AM CST Procedures Lumbar Epidural Injection Patient comes in today for planned injection therapy. He comes in today for the 2nd inj in this series. Patient was brought to procedure room, and placed on the x-ray table in the prone position. A time out was performed to identify the patient and procedure. Lower back was prepped with chlorhexidine and draped in an sterile manner. C arm was brought to the field and rotated to demonstrate the L4-5 interspace approach to best advantage. Skin and subcutaneous tissues on a Rt paramedian line were anesthetized with 1% lidocaine using a 25G needle. Next, a 22G Cricket needle was passed on the same path until ligament engagement was felt. The C arm was then rotated to the lateral view and the needle advanced until the loss of resistance to saline was obtained. Next, 2mL of Omnipaque 240 was injected. This demonstrated epidural spread all Rt of midline L3-4 thru L5-S1 levels. This was followed with 10mL of dexamethasone in 2cc of saline. The needle was removed, sterile dressing applied, and patient returned to their pain clinic room. Following observation and vital signs, patient will be discharged home. IAL WEAPONS UNIT OFFICER documented in this encounter Miscellaneous Notes * Perioperative Nursing Note - Lashay Downs RN - 06/25/2017 9:18 AM SPECIAL WEAPONS UNIT OFFICER Discharge instructions reviewed with pt. Verbalized understanding. Hard copy given to pt. To returnin 2 weeks for #3 injection in series. IAL WEAPONS UNIT OFFICER documented in this encounter Plan of Treatment Not on file documented as of this encounter Procedures Procedure Name Priority Date/Time Associated Diagnosis Comments XR SPINE LUMBAR 2 OR 3 VIEWS IP Routine 06/25/2017 9:11 AM SPECIAL WEAPONS UNIT OFFICER INJECTION - EPIDURAL STEROID - LUMBAR 06/25/2017 9:02 AM SPECIAL WEAPONS UNIT OFFICER Case Notes RT L4-5 TF (2ND) documented in this encounter Results * XR Spine Lumbar 2 or 3 Views (06/25/2017 9:11 AM SPECIAL WEAPONS UNIT OFFICER) Narrative [facility] - 06/25/2017 9:12 AM SPECIAL WEAPONS UNIT OFFICER The images from this study are not interpreted by Radiology. ??Please refer to the physician's procedure / OR operative note. us Clive Mackey MD IMG XR PROCEDURES Final Re sult [facility] documented in this encounter Visit Diagnoses Not on filedocumented in this encounter Active and Recently Administered Medications Times are shown in SPECIAL WEAPONS UNIT OFFICER. PRN Medication Order 06/23/2017 06/24/2017 06/25/2017 dexamethasone (DECADRON) injection (CANCELED) As needed, Starting on Sat06/25/17 at 0901, Intra-Op 0910 (Given - Provid er: Clive Mackey MD) iohexol (OMNIPAQUE) 240 mg iodine/mL injection solution (CANCELED) As needed, Starting on Sat06/25/17 at 0901, Intra-Op 0909 (Given - Provid er: Clive Mackey MD) lidocaine (XYLOCAINE) 10 mg/mL (1 %) injection (CANCELED) As needed, Starting on Sat06/25/17 at 0901, Intra-Op, Indications: Administration of Local Anesthesia 0907 (Given - Provid er: Clive Mackey MD - Comment: Local) sodium chloride 0.9% 0.9 % solution (CANCELED) As needed, Starting on Sat06/25/17 at 0902, Intra-Op 0908 (Given - Provid er: Clive Mackey MD - Comment: Epidural) documented in this encounter Orders Medications Ordered That Quinn ht Not Have Been Administered Count Last Ordered Date First Ordered Date dexamethasone (DECADRON) injection 1 2017 iohexol (OMNIPAQUE) 240 mg i odine/mL injection solution 1 06/25/2017 lidocaine (XYLOCAINE) 10 mg/ mL (1 %) injection 1 06/25/2017 sodium chloride 0.9% 0.9 % solution 1 06/25 documented in this encounter Care Teams Etiologist Relationship Specialty [place] [address] [facility] [address] [place] [address] Rheumatology 02/21/17 Lashay Downs, GAY Registered Nurse Pain Management 06/17/17 documented as of this encounter
--- OUTSIDE RECORDS SUMMARY | 2024-06-14 16:52 | XMS_ITS | Encounter Summary ---
Author Organization [facility] Healthcare Address [address] [place] [address] Care Team Providers Care Bolter Helper Name Role Phone Criss Blanco MD Unavailable Reason for Visit * Reason Comments Fall Encounter Details Date Type Department Care Team (Late st Contact Info) Description 05/16/2017 10:55 AM DISTRICT ADMINISTRATIVE ASSISTANT - 05/16/2017 12:17 PM DISTRICT ADMINISTRATIVE ASSISTANT Emergency [facility] Emergency Department [address] [place] [address] Adonis Nguyen MD [facility] [place] [address] Acute right-sided low back pain without sciatica (Primary Dx) Discharge Disposition: Discharge to home or self care Social History Tobacco Use Types Packs/Day Years Used Date Smoking Tobacco: Heavy Smoker Smokeless Tobacco: Never Comments:Smoking History Pac ks/day: 2 Packs Alcohol Use Standard Drinks/Week Comments No 0 (1 standard drink = 0.6 oz pur e alcohol) Sex and Gender Information Value Date Recorded Sex Assigned at Not on file Legal Sex Male 12:56 AM DISTRICT ADMINISTRATIVE ASSISTANT Gender Identity Not on file Sexual Orientation Not on file documented as of this encounter Last Filed Vital Signs Vital Sign Reading Time Taken Comments Blood Pressure 123/86 05/16/2017 11:11 AM DISTRICT ADMINISTRATIVE ASSISTANT Pulse 68 05/16/2017 11:11 AM DISTRICT ADMINISTRATIVE ASSISTANT Temperature 36.2 ??C (97.1 ??F) 05/16/2017 11:[address] Respiratory Rate 18 05/16/2017 11:11 AM DISTRICT ADMINISTRATIVE ASSISTANT Oxygen Saturation 97% 05/16/2017 11:11 AM DISTRICT ADMINISTRATIVE ASSISTANT Inhaled Oxygen Concentration - - Weight 106.6 kg (235 lb) 05/16/2017 11:11 AM DISTRICT ADMINISTRATIVE ASSISTANT Height 185.4 cm (6' 1 ) 05/16/2017 11:11 AM DISTRICT ADMINISTRATIVE ASSISTANT Body Mass Index 31 05/16/2017 11:11 AM DISTRICT ADMINISTRATIVE ASSISTANT documented in this encounter Discharge Instructions * Attachments The following attachments cannot be sent through Care Everywhere. * Back Pain (Acute or Chronic) (Niuean) documented in this encounter Medications at Time of Discharge folic acid (FOLVITE) 1 mg tablet take 1 tablet by oral route every day 30 6 05/31/2015 07/17/2017 aspirin 81 mg tablet once daily. 06/17/2017 methotrexate 2.5 mg tablet take 6 Tablet by ORAL route every week 0 0 08/13/2016 07/30/2017 ranitidine (ZANTAC) 300 mg capsule Take 1 capsule by mouth. 06/17/2017 SUMAtriptan (IMITREX) 100 mg tablet take 1 [...] 4 (four) hours as needed for pain. 10 tablet 05/16/2017 06/09/2017 documented as of this encounter Ordered Prescriptions Prescription Sig Dispense Quantity Refills Last Filled Start Date End Date traMADol (ULTRAM) 50 mg tablet Take 1 tablet (50 mg total) by mouth every 4 (four) hours as needed for pain. 10 tablet 05/16/2017 06/09/2017 tiZANidine (ZANAFLEX) 2 mg tablet Take 1 tablet (2 mg total) by mouth every 6 (six) hours as needed for muscle spasms. 15 tablet 05/16/2017 01/30/2019 documented in this encounter Discharge Disposition Disposition Code Departure Means Destination Discharge to home or self [facility] documented in this encounter ED Notes * Isamar Fox EXTRACT PULLER - 05/16/2017 12:04 PM CST Images from the original note were not included. HPI Chief Complaint Patient presents with ??? Fall Patient states that he tripped over the dog last night, landing on right hip. States that he has chronic back pain and sciatica. History provided by: Patient clinical dental technician used: No Back Pain Pain location: right lower back. Quality: Aching Radiates to: Does not radiate Pain severity: Mild Pain scale: 3/10 Pain is: Same all the time Onset quality: Sudden Duration: 1 day Timing: Constant Progression: Unchanged Chronicity: New Context: falling Worsened by: Bending and movement Ineffective treatments: None tried Associated symptoms: leg pain (right leg pain) Associated symptoms: no abdominal pain, no bladder incontinence, no bowel incontinence, no chest pain, no dysuria, no fever, no headaches, no numbness, no perianal numbness, no tingling and no weakness Patient History Past Medical History: Diagnosis Date [...] Had done at [facility] in [place] ??? HX OTHER MEDICAL bladder infection ??? HX OTHER MEDICAL kidney stone ??? Malignant neoplasm of prostate ([facility]) 1998 prostate Past Surgical History: Procedure [...] History Substance Use Topics ??? Smoking status: Heavy Tobacco Smoker ??? Smokeless tobacco: Never Used Comment: Smoking History Packs/day: 2 Packs ??? Alcohol use No Review of Systems Review of Systems Constitutional: Negative for appetite change, chills, fatigue and fever. HENT: Negative for congestion, ear pain, postnasal drip, rhinorrhea, sore throat and trouble swallowing. Eyes: Negative for pain, discharge, redness and itching. Respiratory: Negative for chest tightness, shortness of breath and wheezing. Cardiovascular: Negative for chest pain and leg swelling. Gastrointestinal: Negative for abdominal pain, bowel incontinence, constipation, diarrhea, nausea and vomiting. Genitourinary: Negative for bladder incontinence, difficulty urinating, dysuria, frequency and urgency. Musculoskeletal: Positive for back pain (right lower back). Negative for neck pain. Skin: Negative for rash and wound. Allergic/Immunologic: Negative for environmental allergies and food allergies. Neurological: Negative for dizziness, tingling, weakness, numbness and headaches. Physical Exam ED Triage Vitals [05/16/17 1111] Temp Pulse Resp BP SpO2 36.2 ??C (97.1 ??F) 68 18 123/86 97 % Temp src Heart Rate Source Patient Position BP Location FiO2 (%) Tympanic -- -- -- -- Physical Exam Constitutional: He appears well-developed and well-nourished. HENT: Head: Normocephalic and atraumatic. Eyes: Conjunctivae are normal. Neck: Neck supple. Cardiovascular: Normal rate and regular rhythm. No murmur heard. Pulmonary/Chest: Effort normal and breath sounds normal. No respiratory distress. Abdominal: Soft. There is no tenderness. Musculoskeletal: He exhibits tenderness (right lower lateral back). He exhibits no edema. Arms: Neurological: He is alert. Skin: Skin is warm and dry. Psychiatric: He has a normal mood and affect. Nursing note and vitals reviewed. ED Course & MDM ED Course MDM Acute right-sided low back pain without sciatica Isamar Fox NP 05/16/17 1209 Cosigned by Adonis Nguyen MD at 05/16/2017 2:44 PM DISTRICT ADMINISTRATIVE ASSISTANT RICT ADMINISTRATIVE ASSISTANT RICT ADMINISTRATIVE ASSISTANT documented in this encounter Plan of Treatment Not on file documented as of this encounter Visit Diagnoses Diagnosis Acute right-sided low back pain without sciatica- Primary documented in this encounter Care Teams Bolter Helper Relationship Specialty [place] [address] [facility] [address] [place] [address] Rheumatology 02/21/17 documented as of this encounter
--- OUTSIDE RECORDS SUMMARY | 2024-06-14 16:52 | XMS_ITS | Encounter Summary ---
Author Organization [facility] Healthcare Address [address] [place] [address] Care Team Providers Care Regrinder Name Role Phone Criss Blanco MD Unavailable Lashay Downs RN Unavailable Unavailab Duke Goodwin RN Unavailable Unavailabl e Reason for Visit * Reason Onset Date Comments Follow-up 09/18/2017 injection Encounter Details Date Type Department Care Team (Late st Contact Info) Description 09/18/2017 Telephone [facility] 2 [facility] [address] [place] [address] Clive Mackey MD [address] [place] [address] [address] [place] [address] Follow-up (injection) Social History Tobacco Use Types Packs/Day Years Used Date Smoking Tobacco: Former Cigarettes 2 30 Smokeless Tobacco: Never Comments:Smoking History Pac ks/day: 2 Packs Alcohol Use Standard Drinks/Week Comments Yes 2 (1 standard drink = 0.6 oz pur e alcohol) Sex and Gender Information Value Date Recorded Sex Assigned at Not on file Legal Sex Male 12:56 AM SHRUB GROWER Gender Identity Not on file Sexual Orientation Not on file documented as of this encounter Miscellaneous Notes * Telephone Encounter - Rona Mora RN - 09/18/2017 9:43 AM CDT I spoke with a woman who said Samuel was not home. I told her if he has any questions or concerns he could call me back, but if he was doing ok he did not need to call me back. documented in this encounter Plan of Treatment Not on file documented as of this encounter Visit Diagnoses Not on filedocumented in this encounter Care Teams Regrinder Relationship Specialty [place] [address] [facility] [address] [place] [address] Rheumatology 02/21/17 Lashay Downs, RN Registered Nurse Pain Management 06/17/17 Duke Do, RN Registered Nurse 09/09/17 documented as of this encounter
--- OUTSIDE RECORDS SUMMARY | 2024-06-14 16:52 | XMS_ITS | Encounter Summary ---
Author Organization [facility] Healthcare Address [address] [place] [address] Care Team Providers Care Air Table Operator Name Role Phone Criss Blanco MD Unavailable Encounter Details Date Type Department Care Team (Late st Contact Info) Description 05/02/2017 1:15 PM DIESEL ENGINE II PIPE FITTER - 05/02/2017 11:59 PM DIESEL ENGINE II PIPE FITTER Hospital Encounter [facility] Ariel Wiggins MD [address] [place] [address] [facility] [address] [place] [address] Fawn Romeo, ZOILA [address] [place] [address] Discharge Disposition: Discharge to home or self care Social History Tobacco Use Types Packs/Day Years Used Date Smoking Tobacco: Heavy Smoker Comments:Smoking History Pac ks/day: 2 Packs Alcohol Use Standard Drinks/Week Comments No 0 (1 standard drink = 0.6 oz pur e alcohol) Sex and Gender Information Value Date Recorded Sex Assigned at Not on file Legal Sex Male 12:56 AM DIESEL ENGINE II PIPE FITTER Gender Identity Not on file Sexual Orientation [...] EVERY DAY 30 capsule 4 01/28/2017 02/06/2019 documented as of this encounter Discharge Disposition Disposition Code Departure Means Destination Discharge to home or self care documented in this encounter Plan of Treatment Not on file documented as of this encounter Procedures Procedure Name Priority Date/Time Associated Diagnosis Comments XR CHEST PA LATERAL 2 VIEWS Routine 05/02/2017 7:51 PM DIESEL ENGINE II PIPE FITTER documented in this encounter Results * XR Chest Pa Lateral 2 Views (05/02/2017 7:51 PM DIESEL ENGINE II PIPE FITTER) Anatomical Region Laterality Modality Body, Chest N/A Radiographic Corin ging 05/02/2017 7:51 PM DIESEL ENGINE II PIPE FITTER Narrative 05/03/2017 6:53 AM DIESEL ENGINE II PIPE FITTER XR Chest 2 Views ?[id number] ??Acc#: ??[id number] DATE OF EXAM: ??May 02 2017 ?? XR Chest 2 Views ?[id number] HISTORY: Cough for one week. ??Previous smoker.. COMPARISON: PA and lateral chest on 06/07/2015 VIEWS: Erect PA and lateral views FINDINGS: Heart size and pulmonary vascularity remain normal. Thoracic aorta is mildly ectatic and tortuous. ??No active infiltrate, mass or pleural effusion is seen. ??There is prominent spurring at multiple levels the mid to lower thoracic spine along with very slight levoscoliosis. IMPRESSION: 1. ??NO ACTIVE DISEASE SEEN. 2. ??TORTUOUS THORACIC AORTA. 3. PROMINENT MULTILEVEL SPURRING IN THORACIC SPINE. 4. ??NO SIGNIFICANT CHANGE SINCE 06/07/2015. Electronically signed by: Hayder Mckeon Jr., M.D. Interpreting Physician: ??DR HAYDER MCKEON M.D. ??Read on: ??Dec ??2016 12:53A Transcribed by: ??PSC ??On: May ??1 2016 12:50A Approved Electronically by: ??YULIANA Leavitt, DR JACKSON ??on: ??Dec ??2016 12:50A Ordering DR: FAWN ROMEO Attending DR: FAWN ROMEO Attending: ??FAWN ROMEO Requesting: ??FAWN ROMEO Requesting Fax: ??[phone] Attending Fax: ??[phone] Attending ID: ??[id number] Requesting ID: ??[id number] Report To 1 ID: ??[id number] Report To 1 Name: ??FAWN ROMEO Report To 1 FAX: ??[phone] NextGen Order #: ?? Procedure Note Miscellaneous, Not In File - 05/03/2017 XR Chest 2 Views [id number] Acc#: [id number] DATE OF EXAM: May 02 2017 XR Chest 2 Views [id number] HISTORY: Cough for one week. Previous smoker.. COMPARISON: PA and lateral chest on 06/07/2015 VIEWS: Erect PA and lateral views FINDINGS: Heart size and pulmonary vascularity remain normal. Thoracic aorta is mildly ectatic and tortuous. No active infiltrate, mass or pleural effusion is seen. There is prominent spurring at multiple levels the mid to lower thoracic spine along with very slight levoscoliosis. IMPRESSION: 1. NO ACTIVE DISEASE SEEN. 2. TORTUOUS THORACIC AORTA. 3. PROMINENT MULTILEVEL SPURRING IN THORACIC SPINE. 4. NO SIGNIFICANT CHANGE SINCE 06/07/2015. Electronically signed by: Hayder Mckeon Jr., M.D. Interpreting Physician: DR HAYDER MCKEON M.D. Read on: May 03 2017 12:53A Transcribed by: PSC On: May 03 2017 12:50A Approved Electronically by: YULIANA Leavitt, DR JACKSON on: May 03 2017 12:50A Ordering DR: FAWN ROMEO Attending DR: FAWN ROMEO Attending: FAWN ROMEO Requesting: FAWN ROMEO Requesting Attending Attending ID: [id number] Requesting ID: [id number] Report To 1 ID: [id number] Report To 1 Name: FAWN ROMEO Report To 1 FAX: [phone] NextGen Order #: us Fawn CUMMINGS IMG XR PROCEDURES Final Resul t documented in this encounter Visit Diagnoses Not on filedocumented in this encounter Care Teams Air Table Operator Relationship Specialty [place] [address] [facility] [address] [place] [address] Rheumatology 02/21/17 documented as of this encounter
--- OUTSIDE RECORDS SUMMARY | 2024-06-14 16:52 | XMS_ITS | Encounter Summary ---
Author Organization [facility] Healthcare Address [address] [place] [address] Care Team Providers Care Industrial Electrician Name Role Phone Criss Blanco MD Unavailable Lashay Downs RN Unavailable Unavailab Duke Goodwin RN Unavailable Unavailabl e Encounter Details Date Type Department Care Team (Latest Contact Info) Description 09/10/2017 8:42 AM CDT - 09/10/2017 10:05 AM CDT Hospital Encounter [facility] [address] [place] [address] [place] [address] Clive Mackey MD [address] [place] [id number] Discharge Disposition: Discharge to home or self [...] on file Legal Sex Male 12:56 AM RENAL NURSE Gender Identity Not on file Sexual Orientation Not on file documented as of this encounter Last Filed Vital Signs Vital Sign Reading Time Taken Comments Blood Pressure 127/95 09/10/2017 10:01 AM CDT Pulse 71 09/10/2017 10:01 AM CDT Temperature 36.1 ??C (97 ??F) 09/10/2017 9:40 AM CDT Respiratory Rate 17 09/10/2017 10:01 AM CDT Oxygen Saturation 99% 09/10/2017 10:01 AM CDT Inhaled Oxygen Concentration - - Weight - - Height - - Body Mass Index - - documented in this encounter Medications at Time of Discharge biotin 10,000 mcg capsuleIndication s:supplement Take 1 capsule by mouth every morning 06/30/2019 folic acid (FOLVITE) 1 mg tabletIndications :Folate Deficiency Take 1 mg by mouth every morning 05/29/2019 pesguaizzybs-Zm-i foreign-minerals 18-0.4 mg tabletIndications :Mineral Deficiency Prevention,Vitami [...] Nursing Note - Lashay Downs RN - 09/10/2017 10:04 AM CDT Discharge instructions reviewed with pt. Verbalized understanding. Hard copy given to pt. To returnin 1 week for #2 injection of series. * Op Note - Clive Mackey MD - 09/10/2017 9:45 AM CDT Lumbar Epidural Injection Patient comes in today for planned injection therapy. He comes in today to start LESI Rx. Patient was brought to procedure room, and [...] was injected. This demonstrated epidural spread bilat L5-S1 thru sacral levels. This was followed with 10mL of dexamethasone in 2cc of saline. The needle was removed, sterile dressing applied, and patient returned to their pain clinic room. Following observation and vital signs, patient will be discharged home. Problem List: Principal Problem: Discogenic low back pain documented in this encounter Plan of Treatment Not on file documented as of this encounter Procedures Procedure Name Priority Date/Time Associated Diagnosis Comments XR SPINE LUMBAR 2 OR 3 VIEWS Routine 09/10/2017 9:58 AM CDT INJECTION EPIDURAL LUMBAR/CAUDAL 1 LEVEL PAIN PUMP TRIAL W IMAGING [id number] 09/10/2017 9:50 AM CDT Case Notes L5-S1 TLESI (1ST) documented in this encounter Results * XR Spine Lumbar 2 or 3 Views (09/10/2017 9:58 AM CDT) Narrative [facility] - 09/10/2017 9:58 AM CDT The images from this study are not interpreted by Radiology. ??Please refer to the physician's procedure / OR operative note. us Clive Mackey MD IMG XR PROCEDURES Final Re sult [facility] documented in this encounter Visit Diagnoses Diagnosis Discogenic low back pain documented in this encounter Active and Recently Administered Medications Times are shown in CDT. PRN Medication Order 09/08/2017 09/09/2017 09/10/2017 dexamethasone (DECADRON) injection (CANCELED) As needed, Starting on 09/10/17 at 0948, Intra-Op 0948 (Given - Provid er: Clive Mackey MD - Comment: Epidural) iohexol (OMNIPAQUE) 240 mg iodine/mL injection solution (CANCELED) As needed, Starting on 09/10/17 at 0949, Intra-Op 0949 (Given - Provid er: Clive Mackey MD) sodium chloride 0.9% solution (CANCELED) As needed, Starting on 09/10/17 at 0949, Intra-Op 0949 (Given - Provid er: Clive Mackey MD - Comment: Epidural) documented in this encounter Orders Medications Ordered That Quinn ht Not Have Been Administered Count Last Ordered Date First Ordered Date dexamethasone (DECADRON) injection 1 2017 iohexol (OMNIPAQUE) 240 mg i odine/mL injection solution 1 09/10/2017 sodium chloride 0.9% solution 1 09/10/2017 documented in this encounter Care Teams Industrial Electrician Relationship Specialty [place] [address] [address] Rheumatology 02/21/17 Lashay Downs, GAY Registered Nurse Pain Management 06/17/17 Duke Do, RN Registered Nurse 09/09/17 documented as of this encounter
--- OUTSIDE RECORDS SUMMARY | 2024-06-14 16:52 | XMS_ITS | Encounter Summary ---
Author Organization [facility] Healthcare Address [address] [place] [address] Care Team Providers Care Data Processing Specialist Name Role Phone Criss Blanco MD Unavailable Lashay Downs RN Unavailable Unavailab le Encounter Details Date Type Department Care Team (Late st Contact Info) Description 06/18/2017 9:10 AM RETAIL BUSINESS DEVELOPMENT MANAGER Ancillary Procedure [facility] [address] [place] [address] Clive Mackey MD 2 [facility] [address] [place] [address] Social History Tobacco Use Types Packs/Day Years Used Date Smoking Tobacco: Former Cigarettes 2 30 Smokeless Tobacco: Never Comments:Smoking History Pac ks/day: 2 Packs Alcohol Use Standard Drinks/Week Comments Yes 2 (1 standard drink = 0.6 oz pur e alcohol) Sex and Gender Information Value Date Recorded Sex Assigned at Not on file Legal Sex Male 12:56 AM RETAIL BUSINESS DEVELOPMENT MANAGER Gender Identity Not on file Sexual Orientation Not on file documented as of this encounter Plan of Treatment Not on file documented as of this encounter Procedures Procedure Name Priority Date/Time Associated Diagnosis Comments XR SPINE LUMBAR 2 OR 3 VIEWS IP Routine 06/18/2017 9:23 AM RETAIL BUSINESS DEVELOPMENT MANAGER documented in this encounter Results * XR Spine Lumbar 2 or 3 Views (06/18/2017 9:23 AM RETAIL BUSINESS DEVELOPMENT MANAGER) Narrative [facility] - 06/18/2017 9:24 AM RETAIL BUSINESS DEVELOPMENT MANAGER The images from this study are not interpreted by Radiology. ??Please refer to the physician's procedure / OR operative note. us Clive Mackey MD IMG XR PROCEDURES Final Re sult [facility] documented in this encounter Visit Diagnoses Not on filedocumented in this encounter Care Teams Data Processing Specialist Relationship Specialty [place] [id number] [facility] [address] [place] [address] Rheumatology 02/21/17 Lashay Downs, RN Registered Nurse Pain Management 06/17/17 documented as of this encounter
--- OUTSIDE RECORDS SUMMARY | 2024-06-14 16:52 | XMS_ITS | Encounter Summary ---
Author Organization [facility] Healthcare Address [address] [place] [address] Care Team Providers Care Operating Room Manager Name Role Phone Criss Blanco MD Unavailable Lashay Downs RN Unavailable Unavailab le Encounter Details Date Type Department Care Team (Late st Contact Info) Description 06/25/2017 8:45 AM EARLY LEARNING TEACHER - 06/25/2017 9:00 AM [facility] Surgery [facility] [address] [place] [address] [address] [place] [address] Clive Mackey MD [address] [place] [address] [address] [place] [address] Injection - Epidural Steroid - Lumbar Surgery Details Date/Time Status Location OR Service Patient Class Case Class Case Type Trauma Case? 06/25/2017 8:45 AM Posted [facility] Pain Management Procedure Center [facility] PM 1 Pain Management Outpatient Elective Panel 1 Procedure LRB Anes Op Region Wound Class Comments Injection - Epidural Steroid - Lumbar Right Local Spine Lumbar Class I - Clean Surgeon Surgeon Role Service Panel Clive Mackey MD Primary Pain Management 1 Case Notes RT L4-5 TF (2ND) documented in this encounter Social History Tobacco Use Types Packs/Day Years Used Date Smoking Tobacco: Former Cigarettes 2 30 Smokeless Tobacco: Never Comments:Smoking History Pac ks/day: 2 Packs Alcohol Use Standard Drinks/Week Comments Yes 2 (1 standard drink = 0.6 oz pur e alcohol) Sex and Gender Information Value Date Recorded Sex Assigned at Not on file Legal Sex Male 12:56 AM EARLY LEARNING TEACHER Gender Identity Not on file Sexual Orientation Not on file documented as of this encounter Last Filed Vital Signs Vital Sign Reading Time Taken Comments Blood Pressure 108/76 06/25/2017 8:45 AM EARLY LEARNING TEACHER Pulse 77 06/25/2017 8:45 AM EARLY LEARNING TEACHER Temperature 36 ??C (96.8 ??F) 06/25/2017 8:45 AM EARLY LEARNING TEACHER Respiratory Rate - - Oxygen Saturation - [...] vital signs, patient will be discharged home. Y LEARNING TEACHER documented in this encounter Miscellaneous Notes * Perioperative Nursing Note - Lashay Downs RN - 06/25/2017 9:18 AM EARLY LEARNING TEACHER Discharge instructions reviewed with pt. Verbalized understanding. Hard copy given to pt. To returnin 2 weeks for #3 injection in series. Y LEARNING TEACHER documented in this encounter Plan of Treatment Not on file documented as of this encounter Procedures Procedure Name Priority Date/Time Associated Diagnosis Comments XR SPINE LUMBAR 2 OR 3 VIEWS IP Routine 06/25/2017 9:11 AM EARLY LEARNING TEACHER INJECTION - EPIDURAL STEROID - LUMBAR 06/25/2017 9:02 AM EARLY LEARNING TEACHER Case Notes RT L4-5 TF (2ND) documented in this encounter Results * XR Spine Lumbar 2 or 3 Views (06/25/2017 9:11 AM EARLY LEARNING TEACHER) Narrative [facility] - 06/25/2017 9:12 AM EARLY LEARNING TEACHER The images from this study are not [...] dexamethasone (DECADRON) injection As needed, Starting on Sat06/25/17 at 0901, Intra-Op Given 06/25/2017 9:10 AM EARLY LEARNING TEACHER 10 mg Back iohexol (OMNIPAQUE) 240 mg iodine/mL injection solution As needed, Starting on Sat06/25/17 at 0901, Intra-Op Given 06/25/2017 9:09 AM EARLY LEARNING TEACHER 2 mL Back lidocaine (XYLOCAINE) 10 mg/mL (1 %) injection As needed, Starting on Sat06/25/17 at 0901, Intra-Op, Indications: Administration of Local AnesthesiaIndications:Administratio n of Local Anesthesia Given 06/25/2017 9:07 AM EARLY LEARNING TEACHER 2 mL Back sodium chloride 0.9% 0.9 % solution As needed, Starting on Sat06/25/17 at 0902, Intra-Op Given 06/25/2017 9:08 AM EARLY LEARNING TEACHER 2 mL Back documented in this encounter Active and Recently Administered Medications Times are shown in EARLY LEARNING TEACHER. PRN Medication Order 06/23/2017 06/24/2017 06/25/2017 dexamethasone [...] Epidural) documented in this encounter Care Teams Operating Room Manager Relationship Specialty [place] [address] [facility] [address] [place] [address] Rheumatology 02/21/17 Lashay Downs, RN Registered Nurse Pain Management 06/17/17 documented as of this encounter
--- OUTSIDE RECORDS SUMMARY | 2024-06-14 16:52 | XMS_ITS | Encounter Summary ---
Author Organization [facility] Healthcare Address [address] [place] [address] Care Team Providers Care Docket Clerk Name Role Phone Criss Blanco MD Unavailable Lashay Downs RN Unavailable Unavailab le Reason for Visit * Reason Comments Flank Pain left Encounter Details Date Type Department Care Team (Late st Contact Info) Description 07/07/2017 9:59 PM PHYSICAL DIRECTOR - 07/08/2017 1:09 AM PHYSICAL DIRECTOR Emergency [facility] Emergency Department [address] [place] [id number] Josey Jarvis Bladder wall thickening (Primary Dx); Flank pain Discharge Disposition: Discharge to home or [...] on file Legal Sex Male 12:56 AM PHYSICAL DIRECTOR Gender Identity Not on file Sexual Orientation Not on file documented as of this encounter Last Filed Vital Signs Vital Sign Reading Time Taken Comments Blood Pressure 120/90 07/07/2017 11:10 PM PHYSICAL DIRECTOR Pulse 61 07/07/2017 11:10 PM PHYSICAL DIRECTOR Temperature 36.8 ??C (98.3 ??F) 07/07/2017 11:[address] Respiratory Rate 18 07/07/2017 11:10 PM PHYSICAL DIRECTOR Oxygen Saturation 100% 07/07/2017 11:10 PM PHYSICAL DIRECTOR Inhaled Oxygen Concentration - - Weight 103 kg (227 lb) 07/07/2017 10:06 PM PHYSICAL DIRECTOR Height 185.4 cm (6' 1 ) 07/07/2017 10:06 PM PHYSICAL DIRECTOR Body Mass Index 29.95 07/07/2017 10:06 PM PHYSICAL DIRECTOR documented in this encounter Discharge Instructions * Discharge Instructions* Josey Jarvis MD - 07/08/2017 1:04 AM PHYSICAL DIRECTOR You were evaluated for flank pain. It is possible that you passed a kidney stone and that was the cause of your pain. You have no signs of a ureteral stone now and your urine did not show any signs of infection. Your CT scan did show a thickened bladder wall. I recommend that you discuss this with your urologist Dr. Caballero as you may need a bladder biopsy for further evaluation. Seek immediate medical attention if you have new or worsening symptoms, pain, fever, or for any other concern. ICAL DIRECTOR * Attachments The following attachments cannot be sent through Care Everywhere. * Flank Pain, Uncertain Cause (Bulgarian) documented in this encounter Medications at [...] documented in this encounter ED Notes * Josey Jarvis MD - 07/07/2017 10:33 PM CST HPI Chief Complaint Patient presents with ??? Flank Pain left HPI [Provider at bedside: 10:59 PM]: Samuel Sanchez is a 72 y.o. male that presents to the ED c/o non-radiating left flank pain that began suddenly 6 hours ago. Patient reports the pain was intense at first, rating it 6/10. He states it has now improved to 3/10. Patient reports the pain feels similar to past pain associated with kidney stones. Patient reports he has had to have removal procedures with all of his past kidney stones. Patient denies any nausea, vomiting, hematuria, or other associated symptoms. Patient's urologist is Dr. Caballero. No other complaints at this time. This note is prepared by Sue Ryan, acting as a scribe for Josey Jarvis MD. I electronically signed this note at 10:33 PM. I, Josey Jarvis MD , have personally performed the services described in the documentation , reviewed the documentation, as recorded by the scribe in my presence, and it accurately and completely records my words and actions. Patient History Patient Active Problem List Diagnosis Date Noted ??? 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 Headache 12/22/2009 Class: Chronic [...] OTHER MEDICAL hemorroids; Comments: [facility] [place] ??? HX OTHER MEDICAL bladder infection ??? HX OTHER MEDICAL kidney stone ??? Malignant neoplasm of prostate ([facility]) 1998 prostate Past Surgical History: Procedure Laterality [...] Systems Review of Systems Constitutional: Negative for chills, fatigue and fever. Respiratory: Negative for cough, shortness of breath and wheezing. Cardiovascular: Negative for chest pain and palpitations. Gastrointestinal: Negative for abdominal pain, constipation, diarrhea, nausea and vomiting. Genitourinary: Positive for flank pain (left). Negative for hematuria. Musculoskeletal: Negative for arthralgias, back pain and neck pain. Skin: Negative for color change, pallor, rash and wound. Neurological: Negative for dizziness, weakness, light-headedness and headaches. All other systems reviewed and are negative. Physical Exam ED Triage Vitals [07/07/17 2206] Temp Pulse Resp BP SpO2 36.6 ??C (97.9 ??F) 66 16 127/83 99 % Temp src Heart Rate Source Patient Position BP Location FiO2 (%) Temporal -- -- -- -- Physical Exam Constitutional: He is oriented to person, place, and time. He appears well- developed and well-nourished. No distress. HENT: Head: Normocephalic and atraumatic. Mouth/Throat: Oropharynx is clear and moist. Eyes: Conjunctivae and EOM are normal. Right eye exhibits no discharge. Left eye exhibits no discharge. Neck: Normal range of motion. Neck supple. Cardiovascular: Normal rate, regular rhythm, normal heart sounds and intact distal pulses. Exam reveals no gallop and no friction rub. No murmur heard. Pulmonary/Chest: Effort normal and breath sounds normal. No respiratory distress. He has no wheezes. He has no rales. Abdominal: Soft. He exhibits no distension and no mass. There is no tenderness. Musculoskeletal: Normal range of motion. He exhibits tenderness (left CVA tenderness). He exhibits no edema or deformity. Neurological: He is alert and oriented to person, place, and time. Skin: Skin is warm and dry. Capillary refill takes less than 2 seconds. No rash noted. No erythema.No pallor. Psychiatric: He has a normal mood and affect. His behavior is normal. Nursing note and vitals reviewed. ED Course & MDM ED Course as of Jul 08 146 Sun Jul 07, 2017 2233 Pre-hypertension/Hypertension: The patient has been informed that they may have pre-hypertension or Hypertension based on a blood pressure reading in the Emergency Department. I recommend that the patient call the primary care provider listed on their discharge instructions or a physician of their choice this week to arrange follow up for further evaluation of possible pre- hypertension or Hypertension. BP: 127/83 [ELIZABETH] ED Course User Index [ELIZABETH] Sue Ryan [facility] Number of Diagnoses or Management Options Bladder wall thickening: Flank pain: Diagnosis management comments: Pt w flank pain that has now resolved, history of large renal stonesper him No ureteral stones on ct today but had thickened bladder wall concerning for cystitis, pt tells me he was on levaquin last week for a very symptomatic uti but his symptoms have resolved ua today is normal Discussed w him close follow up with urology as he may need a bladder biopsy He reports understanding Given thorough return precautions Amount and/or Complexity of Data Reviewed Clinical lab tests: reviewed Tests in the radiology section of CPT??: reviewed Labs Reviewed CBC WITH AUTO DIFFERENTIAL - Abnormal Result Value WBC 5.3 RBC 4.47 Hgb 14.3 Hct 40.7 MCV 91.1 MCH 32.0 MCHC 35.1 RDW CV 13.9 RDW SD 46.0 Platelets 134 (*) MPV 10.4 NRBC Abs 0.00 Narrative: DIFFERENTIAL AUTO - Abnormal Neutrophils 60.0 Immature granulocytes 0.2 Lymphocytes 21.1 Monos 10.0 Eosinophils 7.9 (*) Basophils 0.8 Neutrophil absolute 3.18 Immature granulocyte, abs 0.01 Lymphocytes, abs 1.12 Monos, abs 0.53 Eosinophils, abs 0.42 Basophils, abs 0.04 Narrative: URINALYSIS AND REFLEX TO MICROSCOPIC AND CULTURE Color, ur Yellow Clarity, ur Clear Specific gravity, ur 1.020 pH, ur 6.0 Protein, ur Negative Glucose, ur Negative Ketones, ur Negative Bilirubin, ur Negative Blood, ur Negative Urobilinogen, ur 0.2 Nitrites, ur Negative Leukocyte esterase, ur Negative Narrative: COMPREHENSIVE METABOLIC PANEL Sodium 145 Potassium 3.8 CO2 29 BUN 20 Glucose 99 Creatinine 0.92 Calcium 9.1 Chloride 105 Albumin 3.9 AST 18 ALT 19 Alk phos 58 Bilirubin 0.4 Protein, pl 6.6 Anion Gap 11 Narrative: EGFR GFR >60 Narrative: CT Abdomen Pelvis WO Contrast (Results Pending) BP 120/90 (BP Location: Left arm, Patient Position: Lying) Pulse 61 Temp 36.8 ??C (98.3 ??F) (Temporal) Resp 18 Ht 185.4 cm (6' 1 ) Wt 103 kg (227 lb) SpO2 100% BMI 29.95 kg/m?? Procedures Bladder wall thickening Flank pain Josey Jarvis MD 07/08/17 0149 ICAL DIRECTOR * Linh Leon RN - 07/07/2017 10:07 PM CST PT reports he has known kidney stones and is having left flank pain today. States I think one of this is on the move. ICAL DIRECTOR documented in this encounter Plan of Treatment Not on file documented as of this encounter Procedures Procedure Name Priority Date/Time Associated Diagnosis Comments DISCHARGE LABORATORY CUMULATIVE REPORT 07/08/2017 12:[address] ABDOMEN PELVIS WO CONTRAST ED 07/07/2017 11:41 PM PHYSICAL DIRECTOR URINALYSIS AND REFLEX TO MICROSCOPIC AND CULTURE STAT 07/07/2017 11:05 PM PHYSICAL DIRECTOR EGFR STAT 07/07/2017 10:25 PM PHYSICAL DIRECTOR DIFFERENTIAL AUTO STAT 07/07/2017 10: 25 PM PHYSICAL DIRECTOR CBC WITH AUTO DIFFERENTIAL STAT 07/07/2017 10:25 PM PHYSICAL DIRECTOR COMPREHENSIVE METABOLIC PANEL STAT 07/07/2017 10:25 PM PHYSICAL DIRECTOR documented in this encounter Results * DISCHARGE LABORATORY CUMULATIVE REPORT (07/08/2017 12:00 AM PHYSICAL DIRECTOR) Narrative 07/08/2017 12:00 AM PHYSICAL DIRECTOR Ordered by an unspecified provider. Historical Provider LAB BLOOD ORDERABLES Mariaa l Result * CT Abdomen Pelvis WO Contrast (07/07/2017 11:41 PM PHYSICAL DIRECTOR) Anatomical Region Laterality Modality Body N/A Computed Tomogra phy Impressions 07/08/2017 7:37 AM PHYSICAL DIRECTOR 1. ??MULTIPLE BILATERAL RIGHT GREATER THAN LEFT RENAL STONES. 2. ??MILD DILATATION OF THE LEFT INTRARENAL COLLECTING SYSTEM BUT UNCHANGED SINCE PRIOR STUDY. ??THE LEFT URETER IS NORMAL IN CALIBER THEREFORE THIS RAISES CONCERN FOR A COMPONENT OF UPJ STENOSIS. 3. ??MODERATE ENLARGEMENT THE PROSTATE GLAND. ?? 4. ??MILD THICKENING OF THE URINARY BLADDER WALL ASSOCIATED WITH MILD PERIVESICAL EDEMA COMPATIBLE WITH CYSTITIS. Electronically signed by: Adryan Garrison M.D. Narrative 07/08/2017 7:[address] ABDOMEN PELVIS WO CONTRAST HISTORY: Severe left flank pain. TECHNIQUE: Serial axial images of the abdomen and pelvis obtained without contrast.. COMPARISON: 06/09/2017 FINDINGS: Evaluation of the solid abdominal organs is limited by the lack of intravenous contrast. Lung bases are clear. The aorta is normal in caliber. There are a few very small hepatic cysts. ??There are no dilated intrahepatic ducts. Gallbladder is normal. Spleen is normal. There are several bilateral renal stones more numerous on the right. The right intrarenal collecting system is nondilated. ??The left intrarenal collecting system is mildly dilated but unchanged since the CT from 06/09/2017 and is also similar to the study from 11/29/2016. ??The left ureter is normal in caliber. ??This persistent mild dilatation would raise concern for a component of UPJ stenosis. No ureter stone or bladder stone is seen. ??There is a 3.37 m posterior right renal cyst. Adrenal glands are normal. Pancreas is normal. There are no dilated loops of small or large bowel or inflammatory bowel changes. ??There are a few colon diverticula. Appendix is normal. There is no free air, free fluid or adenopathy. The prostate gland is moderately enlarged as before with small prostate calcifications. ??The wall of the urinary bladder appears mildly thickened and very mild edematous changes are seen in perivesical fat as before compatible with cystitis. 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 Procedure Note Adryan Garrison MD - 07/08/2017 CT ABDOMEN PELVIS WO CONTRAST HISTORY: Severe left flank pain. TECHNIQUE: Serial axial images of the abdomen and pelvis obtained without contrast.. COMPARISON: 06/09/2017 FINDINGS: Evaluation of the solid abdominal organs is limited by the lack of intravenous contrast. Lung bases are clear. The aorta is normal in caliber. There are a few very small hepatic cysts. There are no dilated intrahepatic ducts. Gallbladder is normal. Spleen is normal. There are several bilateral renal stones more numerous on the right. The right intrarenal collecting system is nondilated. The left intrarenal collecting system is mildly dilated but unchanged since the CT from 06/09/2017 and is also similar to the study from 11/29/2016. The left ureter is normal in caliber. This persistent mild dilatation would raise concern for a component of UPJ stenosis. No ureter stone or bladder stone is seen. There is a 3.37 m posterior right renal cyst. Adrenal glands are normal. Pancreas is normal. There are no dilated loops of small or large bowel or inflammatory bowel changes. There are a few colon diverticula. Appendix is normal. There is no free air, free fluid or adenopathy. The prostate gland is moderately enlarged as before with small prostate calcifications. The wall of the urinary bladder appears mildly thickened and very mild edematous changes are seen in perivesical fat as before compatible with cystitis. 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 IMPRESSION: 1. MULTIPLE BILATERAL RIGHT GREATER THAN LEFT RENAL STONES. 2. MILD DILATATION OF THE LEFT INTRARENAL COLLECTING SYSTEM BUT UNCHANGED SINCE PRIOR STUDY. THE LEFT URETER IS NORMAL IN CALIBER THEREFORE THIS RAISES CONCERN FOR A COMPONENT OF UPJ STENOSIS. 3. MODERATE ENLARGEMENT THE PROSTATE GLAND. 4. MILD THICKENING OF THE URINARY BLADDER WALL ASSOCIATED WITH MILD PERIVESICAL EDEMA COMPATIBLE WITH CYSTITIS. Electronically signed by: Adryan Garrison M.D. Josey Jarvis IM CT PROCEDURES Final Result * Urinalysis reflex to microscopic and culture (07/07/2017 11:05 PM PHYSICAL DIRECTOR) Color, ur Yellow Yellow [facility] (BRE) Clarity, ur Clear Clear [facility] ([facility]) Specific gravity, ur 1.020 1.003 - 1.030 [facility] (BRE) Comment:Normal Ranges: 1.003 -1.030 pH, ur 6.0 4.5 - 8.0 [facility] ([facility]) Comment:Normal ranges: 4.5-8 .0 Protein, ur ql Negative Negative mg/dL [facility] ([facility]) Glucose, ur ql Negative Negative mg/dL [facility] ([facility]) Ketones, ur Negative Negative [facility] ([facility]) Bilirubin, ur Negative Negative [facility] ([facility]) Blood, ur Negative Negative [facility] ([facility]) Urobilinogen, ur 0.2 0.2 - 1.0 EhrUnit/dL [facility] ([facility]) Comment:Normal Ranges: 0.2-1 .0 EU/dL Nitrites, ur Negative Negative [facility] ([facility]) Leukocyte esterase, ur Negative Negative [facility] ([facility]) Urine 07/07/2017 11:0 5 PM PHYSICAL DIRECTOR 07/08/2017 12:43 AM PHYSICAL DIRECTOR Narrative [facility] (BRE) - 07/08/2017 12:44 AM PHYSICAL DIRECTOR us Josey Jarvis LAB MICROBIOLOGY - [facility] ORDERABLES Final Result [facility] (BRE) 1 [facility] Department [place] [address] * eGFR (07/07/2017 10:25 PM PHYSICAL DIRECTOR) eGFR >60 mL/min/1.7 3 m2 [facility] (BRE) Comment: Interpretive Data Reference Interval Normal ?>/= 90 mL/min/1.73m2 Mildly decreased* ? 60 - 89 mL/min/1.73m2 Mildly to moderately decreased ?45 - 59 mL/min/1.73m2 Moderately to severely decreased ??30 - 44 mL/min/1.73m2 Severely decreased ?15 - 29 mL/min/1.73m2 Kidney Failure ?< 15 ??mL/min/1.73m2 *Relative to young adult level If -Bolivian multiply value by 1.16. Estimated glomerular filtration [...] was last reviewed 2015. Blood specimen (specimen) 07/07/2017 10:25 PM PHYSICAL DIRECTOR 07/07/2017 10:28 PM PHYSICAL DIRECTOR Narrative [facility] (BRE) - 07/07/2017 10:50 PM PHYSICAL DIRECTOR us Adonis Nguyen MD LAB BLOOD ORDERABLES Final Result [facility] (BRE) 1 [facility] [place] [address] * (ABNORMAL) Differential, auto (07/07/2017 10:25 PM PHYSICAL DIRECTOR) Neutrophil pct 60.0 44.0 - 80.0 % [facility] ([facility]) Imm gran pct 0.2 0.0 - 1.0 % [facility] ([facility]) Lymphocyte pct 21.1 13.0 - 44.0 % [facility] ([facility]) Monocyte pct 10.0 2.0 - 11.0 % [facility] ([facility]) Eosinophil pct 7.9(H) 0.0 - 6.0 % [facility] ([facility]) Basophil pct 0.8 0.0 - 3.0 % [facility] ([facility]) Neutrophil abs 3.18 1.60 - 7.00 K/cumm [facility] ([facility]) Imm gran abs 0.01 0.00 - 0.20 K/cumm [facility] ([facility]) Lymphocyte abs 1.12 0.50 - 4.30 K/cumm [facility] ([facility]) Monocyte abs 0.53 0.10 - 1.00 K/cumm [facility] ([facility]) Eosinophil abs 0.42 0.00 - 0.60 K/cumm [facility] ([facility]) Basophil abs 0.04 0.00 - 0.30 K/cumm [facility] ([facility]) Blood specimen (specimen) 07/07/2017 10:25 PM PHYSICAL DIRECTOR 07/07/2017 10:28 PM PHYSICAL DIRECTOR Narrative [facility] ([facility]) - 07/07/2017 10:36 PM PHYSICAL DIRECTOR Adonis Nguyen MD LAB BLOOD ORDERABLES Final Result [facility] (BRE) 1 [facility] [place] [address] * Comprehensive metabolic panel (07/07/2017 10:25 PM PHYSICAL DIRECTOR) Sodium 145 135 - 145 mmol/L [facility] ([facility]) Potassium, pl 3.8 3.3 - 4.9 mmol/L [facility] ([facility]) CO2 29 22 - 32 mmol/L [facility] ([facility]) BUN 20 8 - 25 mg/dL [facility] ([facility]) Glucose 99 70 - 199 mg/dL [facility] ([facility]) [...] Current interpretive data was last revised 2017. Creatinine 0.92 0.80 - 1.30 mg/dL [facility] ([facility]) Calcium 9.1 8.5 - 10.3 mg/dL [facility] ([facility]) Chloride 105 97 - 110 mmol/L [facility] ([facility]) Albumin 3.9 3.5 - 5.0 g/dL [facility] ([facility]) AST 18 10 - 50 Units/L [facility] ([facility]) ALT 19 7 - 55 Units/L [facility] ([facility]) Alk phos 58 40 - 130 Units/L [facility] ([facility]) Bilirubin, total 0.4 0.1 - 1.2 mg/dL [facility] ([facility]) Protein, pl 6.6 6.5 - 8.5 g/dL [facility] ([facility]) Anion gap 11 2 - 15 mmol/L [facility] ([facility]) Blood specimen (specimen) 07/07/2017 10:25 PM PHYSICAL DIRECTOR 07/07/2017 10:28 PM PHYSICAL DIRECTOR Narrative [facility] ([facility]) - 07/07/2017 10:50 PM PHYSICAL DIRECTOR Josey Jarvis LAB BLOOD ORDERABLES Fi nal Result [facility] (BRE) 1 [facility] [place] [address] * (ABNORMAL) CBC with auto differential (07/07/2017 10:25 PM PHYSICAL DIRECTOR) WBC 5.3 3.8 - 9.9 K/cumm [facility] ([facility]) RBC 4.47 4.30 - 5.80 M/cumm [facility] ([facility]) Hgb 14.3 13.0 - 17.5 g/dL [facility] ([facility]) Hct 40.7 38.9 - 50.3 % [facility] ([facility]) MCV 91.1 80.0 - 97.6 fL [facility] ([facility]) MCH 32.0 27.1 - 33.3 pg [facility] ([facility]) MCHC 35.1 32.3 - 35.7 g/dL [facility] ([facility]) RDW CV 13.9 11.1 - 14.9 % [facility] ([facility]) RDW SD 46.0 35.7 - 48.1 fL [facility] ([facility]) Plt 134(L) 150 - 400 K/cumm [facility] ([facility]) MPV 10.4 9.1 - 12.3 fL [facility] ([facility]) NRBC abs 0.00 0.00 - 0.01 K/cumm [facility] ([facility]) Blood specimen (specimen) 07/07/2017 10:25 PM PHYSICAL DIRECTOR 07/07/2017 10:28 PM PHYSICAL DIRECTOR Narrative [facility] ([facility]) - 07/07/2017 10:36 PM PHYSICAL DIRECTOR Josey Jarvis LAB BLOOD ORDERABLES Fi nal Result [facility] (BRE) 1 [facility] [place] [address] documented in this encounter Visit Diagnoses Diagnosis Bladder wall thickening- Primary Other specified disorder of bladder Flank pain Abdominal pain, unspecified site documented in this encounter Administered Medications Inactive Administered Medications - up to 3 most recent administrations Medication Order MAR Action Action Date Dose Rate Site ketorolac (TORADOL) injection 30 mg 30 mg, intramuscular, Once, On 07/07/17 at 2315, For 1 dose Given 07/07/2017 11:08 PM PHYSICAL DIRECTOR 30 mg Right Deltoid documented in this encounter Active and Recently Administered Medications Times are shown in PHYSICAL DIRECTOR. Scheduled Medication Order 07/06/2017 07/07/2017 07/08/2017 ketorolac (TORADOL) injection 30 mg (COMPLETED) 30 mg, intramuscular, Once, On 07/07/17 at 2315, For 1 dose 2308 (Given - Provider: Alona James RN) documented in this encounter Care Teams Docket Clerk Relationship Specialty [place] [id number] [address] Rheumatology 02/21/17 Lashay Downs RN Registered Nurse Pain Management 06/17/17 documented as of this encounter
--- OUTSIDE RECORDS SUMMARY | 2024-06-14 16:52 | XMS_ITS | Encounter Summary ---
Author Organization [facility] Healthcare Address [address] [place] [address] Care Team Providers Care Brand Leader Name Role Phone Criss Blanco MD Unavailable Lashay Downs RN Unavailable Unavailab Duke Goodwin RN Unavailable Unavailabl e Encounter Details Date Type Department Care Team (Late st Contact Info) Description 09/17/2017 9:00 AM CDT - 09/17/2017 9:15 AM CDT Surgery [facility] 2 [facility] [address] [place] [address] Clive Mackey MD [address] [place] [address] [address] [place] [address] Injection Epidural Lumbar/Caudal 1 Level Pain Pump Trial W Imaging 21791 Surgery Details Date/Time Status Location OR Service Patient Class Case Class Case Type Trauma Case? 09/17/2017 9:00 AM Posted [facility] Pain Management Procedure Center [facility] PM 1 Pain Management Outpatient Elective Panel 1 Procedure LRB Anes Op Region Wound Class Comments Injection Epidural Lumbar/Ca udal 1 Level Pain Pump Trial W Imaging 29769 N/A Local Back Surgeon Surgeon Role Service Panel Clive Mackey MD Primary Pain Management 1 Case Notes L5-S1 TLESI (2ND) documented in this encounter Social History Tobacco Use Types Packs/Day Years Used Date Smoking Tobacco: Former Cigarettes 2 30 Smokeless Tobacco: Never Comments:Smoking History Pac ks/day: 2 Packs Alcohol Use Standard Drinks/Week Comments Yes 2 (1 standard drink = 0.6 oz pur e alcohol) Sex and Gender Information Value Date Recorded Sex Assigned at Not on file 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 Gender Identity Not on file Sexual Orientation Not on file documented as of this encounter Last Filed Vital Signs Vital Sign Reading Time Taken Comments Blood Pressure 126/80 09/17/2017 9:05 AM CDT Pulse 77 09/17/2017 9:05 AM CDT Temperature 36.4 ??C (97.5 ??F) 09/17/2017 9:05 AM CD T Respiratory Rate 16 09/17/2017 9:05 AM CDT Oxygen Saturation - - Inhaled Oxygen Concentration - - Weight - - Height - - Body Mass Index - - documented in this encounter Medications at Time of Discharge biotin 10,000 mcg capsuleIndication s:supplement Take 1 capsule by mouth every morning 06/30/2019 folic acid (FOLVITE) 1 mg tabletIndications :Folate Deficiency Take 1 mg by mouth every morning 05/29/2019 evacufjoqpbm-Ph-y foreign-minerals 18-0.4 mg tabletIndications :Mineral Deficiency Prevention,Vitami [...] Nursing Note - Lashay Downs RN - 09/17/2017 9:20 AM CDT Discharge instructions reviewed with pt. Verbalized understanding. Hard copy given to pt. To returnin 2 weeks for #3 injection of series. * Perioperative Nursing Note - Lashay Downs RN - 09/17/2017 9:06 AM CDT Seen by Dr. Mackey pre procedure. Consent form reviewed and signed by pt. * Op Note - Clive Mackey MD - 09/17/2017 9:00 AM CDT Lumbar Epidural Injection Patient comes in today for planned injection therapy. He comes in today for the 2nd LESI in this series. Patient was brought [...] was injected. This demonstrated epidural spread all Lt of midline L5-S1 thru sacral levels. This was followed [...] LUMBAR 2 OR 3 VIEWS IP Routine 09/17/2017 9:13 AM CDT INJECTION EPIDURAL LUMBAR/CAUDAL 1 LEVEL PAIN PUMP TRIAL W IMAGING [id number] 09/17/2017 9:06 AM CDT Case Notes L5-S1 TLESI (2ND) documented in this encounter Results * XR Spine Lumbar 2 or 3 Views (09/17/2017 9:13 AM CDT) Narrative [facility] - 09/17/2017 9:13 AM CDT The images from this study [...] dexamethasone (DECADRON) injection As needed, Starting on 09/17/17 at 0909, Intra-Op Given 09/17/2017 9:12 AM CDT 10 mg Back iohexol (OMNIPAQUE) 240 mg iodine/mL injection solution As needed, Starting on 09/17/17 at 0909, Intra-Op Given 09/17/2017 9:11 AM CDT 2 mL Back sodium chloride 0.9% solution As needed, Starting on 09/17/17 at 0909, Intra-Op Given 09/17/2017 9:11 AM CDT 2 mL Back documented in this encounter Active and Recently Administered Medications Times are shown in CDT. PRN Medication Order 09/15/2017 09/16/2017 09/17/2017 dexamethasone (DECADRON) injection (CANCELED) As needed, Starting on 09/17/17 at 0909, Intra-Op 0912 (Given - Provid er: Clive Mackey MD - Comment: epidural) iohexol (OMNIPAQUE) 240 mg iodine/mL injection solution (CANCELED) As needed, Starting on 09/17/17 at 0909, Intra-Op 0911 (Given - Provid er: Clive Mackey MD) sodium chloride 0.9% solution (CANCELED) As needed, Starting on Tue /17/18 at 0909, Intra-Op 0911 (Given - Provid er: Clive Mackey MD - Comment: epidural) documented in this encounter Care Teams Brand Leader Relationship Specialty [place] [address] [facility] [address] [place] [address] Rheumatology 02/21/17 Lashay Downs, RN Registered Nurse Pain Management 06/17/17 Duke Do, RN Registered Nurse 09/09/17 documented as of this encounter
--- OUTSIDE RECORDS SUMMARY | 2024-06-14 16:52 | XMS_ITS | Encounter Summary ---
Author Organization [facility] Healthcare Address [address] [place] [address] Care Team Providers Care Medical Parasitologist Name Role Phone Criss Blanco MD Unavailable Lashay Downs RN Unavailable Unavailab Duke Goodwin RN Unavailable Unavailabl e Encounter Details Date Type Department Care Team (Late st Contact Info) Description 09/10/2017 9:45 AM CDT - 09/10/2017 10:00 AM CDT Surgery [facility] 2 [facility] [address] [place] [address] Clive Mackey MD [address] [place] [address] [address] [place] [address] Injection Epidural Lumbar/Caudal 1 Level Pain Pump Trial W Imaging 77223 Surgery Details Date/Time Status Location OR Service Patient Class Case Class Case Type Trauma Case? 09/10/2017 9:45 AM Posted [facility] Pain Management Procedure Center [facility] PM 1 Pain Management Outpatient Elective Panel 1 Procedure LRB Anes Op Region Wound Class Comments Injection Epidural Lumbar/Ca udal 1 Level Pain Pump Trial W Imaging [address]3902 N/A Local Back Surgeon Surgeon Role Service Panel Clive Mackey MD Primary Pain Management 1 Case Notes L5-S1 TLESI (1ST) documented in this encounter Social History Tobacco Use Types Packs/Day Years Used Date Smoking Tobacco: Former Cigarettes 2 30 Smokeless Tobacco: Never Comments:Smoking History Pac ks/day: 2 Packs Alcohol Use Standard Drinks/Week Comments Yes 2 (1 standard drink = 0.6 oz pur e alcohol) Sex and Gender Information Value Date Recorded Sex Assigned at Not on file 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 Gender Identity Not on file Sexual Orientation Not on file documented as of this encounter Last Filed Vital Signs Vital Sign Reading Time Taken Comments Blood Pressure 112/84 09/10/2017 9:40 AM CDT Pulse 70 09/10/2017 9:40 AM CDT Temperature 36.1 ??C (97 ??F) 09/10/2017 9:40 AM CDT Respiratory Rate - - Oxygen Saturation - - Inhaled Oxygen Concentration - - Weight - - Height - - Body Mass Index - - documented in this encounter Medications at Time of Discharge biotin 10,000 mcg capsuleIndication s:supplement Take 1 capsule by mouth every morning 06/30/2019 folic acid (FOLVITE) 1 mg tabletIndications :Folate Deficiency Take 1 mg by mouth every morning 05/29/2019 dlcqhybkvmcl-Jy-f foreign-minerals 18-0.4 mg tabletIndications :Mineral Deficiency Prevention,Vitami [...] 1 LEVEL PAIN PUMP TRIAL W IMAGING 61796 09/10/2017 9:50 AM CDT Case Notes L5-S1 [...] dexamethasone (DECADRON) injection As needed, Starting on 09/10/17 at 0948, Intra-Op Given 09/10/2017 9:48 AM CDT 10 mg Back iohexol (OMNIPAQUE) 240 mg iodine/mL injection solution As needed, Starting on 09/10/17 at 0949, Intra-Op Given 09/10/2017 9:49 AM CDT 2 mL Back sodium chloride 0.9% solution As needed, Starting on 09/10/17 at 0949, Intra-Op Given 09/10/2017 9:49 AM CDT 2 mL Back documented in [...] Epidural) documented in this encounter Care Teams Medical Parasitologist Relationship Specialty [place] [address] [address] Rheumatology 02/21/17 Lashay Downs, RN Registered Nurse Pain Management 06/17/17 Duke Do, RN Registered Nurse 09/09/17 documented as of this encounter
--- OUTSIDE RECORDS SUMMARY | 2024-06-14 16:52 | XMS_ITS | Encounter Summary ---
Author Organization [facility] Healthcare Address [address] [place] [address] Care Team Providers Care Painting Supervisor Name Role Phone Criss Blanco MD Unavailable Encounter Details Date Type Department Care Team (Late st Contact Info) Description 06/09/2017 5:18 PM EPIC CUPID ANALYST - 06/09/2017 6:45 PM [facility] Emergency [facility] Emergency Department [address] [place] [address] Sotero Randolph Jr., MD 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 6 tablet 06/09/2017 06/12/2017 aspirin 81 mg tablet once daily. 06/17/2017 biotin 10,000 mcg capsuleIndicatio ns:supplement Take 1 capsule by mouth every morning 06/30/2019 cephalexin (KEFLEX) 500 mg capsule Take 500 mg by mouth 4 (four) times a day. 07/30/2017 methotrexate 2.5 mg tablet take 6 Tablet by ORAL route every week 0 0 08/13/2016 07/30/2017 omeprazole (PriLOSEC) 20 mg capsule Take 20 mg by mouth daily. 02/06/2019 phenazopyridine (PYRIDIUM) 200 mg tablet Take 1 tablet (200 mg total) by mouth 3 (three) times a day. 6 tablet 06/09/2017 06/17/2017 ranitidine (ZANTAC) 300 mg capsule Take 1 [...] Disposition Code Departure Means Destination Comment s Left without being seen ERROR documented in this encounter Plan of Treatment Not on file documented as of this encounter Visit Diagnoses Not on filedocumented in this encounter Care Teams Painting Supervisor Relationship Specialty [place] [address] [facility] [address] [place] [address] Rheumatology 02/21/17 documented as of this encounter
--- OUTSIDE RECORDS SUMMARY | 2024-06-14 16:52 | XMS_ITS | Encounter Summary ---
Author Organization [facility] Healthcare Address [address] [place] [address] Care Team Providers Care Interventional Neuroradiologist Name Role Phone Criss Blanco MD Unavailable Lashay Downs RN Unavailable Unavailab le Encounter Details Date Type Department Care Team (Late st Contact Info) Description 06/18/2017 8:45 AM FUR FARMER - 06/18/2017 9:00 AM [facility] Surgery [facility] [address] [place] [address] [address] [place] [address] Clive Mackey MD [address] [place] [address] [address] [place] [address] Injection Transforaminal Lumbo/Sacral 1 Level 24158 Surgery Details Date/Time Status Location OR Service Patient Class Case Class Case Type Trauma Case? 06/18/2017 8:45 AM Posted [facility] Pain Management Procedure Center [facility] PM 1 Pain Management Outpatient Elective Panel 1 Procedure LRB Anes Op Region Wound Class Comments Injection Transforaminal Lum barrera/Sacral 1 Level 19919 Right Local Back N/A Surgeon Surgeon Role Service Panel Clive Mackey MD Primary Pain Management 1 Case Notes RT L4-5 TF (1ST) documented in this encounter Social History Tobacco Use Types Packs/Day Years Used Date Smoking Tobacco: Former Cigarettes 2 30 Smokeless Tobacco: Never Comments:Smoking History Pac ks/day: 2 Packs Alcohol Use Standard Drinks/Week Comments Yes 2 (1 standard drink = 0.6 oz pur e alcohol) Sex and Gender Information Value Date Recorded Sex Assigned at Not on file Legal Sex Male 12:56 AM FUR FARMER Gender Identity Not on file Sexual Orientation [...] Procedure Notes * Clive Mackey MD - 06/18/2017 9:04 AM CST Procedures Lumbar transforaminal injection The patient comes in today for planned injection therapy. He comes in to start inj Rx today. Patient was brought to the procedure room and positioned on an Xray table in the prone position. Prepped the Rt lower back with chlorhexidine and draped it in a sterile manner. Brought the C-arm to the field and rotated it to show the L4 vertebral body end-on. Next rotated it to [...] Omnipaque 240. This showed spread of dye medial and superior to the pedicle with concordant Sxs. Followed this with 10 mg of Dexamethasone in 1 cc of saline, removed the needle, placed a sterile dressing, and returned the patient to their clinic room. Following observation and vital signs they will be discharged home. FARMER documented in this encounter Miscellaneous Notes * Perioperative Nursing Note - Lashay Downs RN - 06/18/2017 9:20 AM FUR FARMER Discharge instructions reviewed with pt. Verbalized understanding. To return in 1 week for #2 injection of series. FARMER * Perioperative Nursing Note - Lashay Downs RN - 06/18/2017 9:02 AM FUR FARMER Seen by Dr. Mackey pre procedure. FARMER documented in this encounter Plan of Treatment Not on file documented as of this encounter Procedures Procedure Name Priority Date/Time Associated Diagnosis Comments XR SPINE LUMBAR 2 OR 3 VIEWS IP Routine 06/18/2017 9:23 AM FUR FARMER INJECTION TRANSFORAMINAL LUMBO/SACRAL 1 LEVEL 06/18/2017 9:11 AM FUR FARMER Case Notes RT L4-5 TF (1ST) documented in this encounter Results * XR Spine Lumbar 2 or 3 Views (06/18/2017 9:23 AM FUR FARMER) Narrative [facility] - 06/18/2017 9:24 AM FUR FARMER The images from this study are not [...] dexamethasone (DECADRON) injection As needed, Starting on e 06/18/17 at 0915, Intra-Op Given 06/18/2017 9:18 AM FUR FARMER 10 mg Back iohexol (OMNIPAQUE) 240 mg iodine/mL injection solution As needed, Starting on Sat06/18/17 at 0915, Intra-Op Given 06/18/2017 9:18 AM FUR FARMER 4 mL Back lidocaine (XYLOCAINE) 10 mg/mL (1 %) injection As needed, Starting on Sat06/18/17 at 0914, Intra-Op, Indications: Administration of Local AnesthesiaIndications:Administratio n of Local Anesthesia Given 06/18/2017 9:14 AM FUR FARMER 2 mL Back sodium chloride 0.9% 0.9 % solution As needed, Starting on Sat06/18/17 at 0915, Intra-Op Given 06/18/2017 9:17 AM FUR FARMER 2 mL Back documented in this encounter Active and Recently Administered Medications Times are shown in FUR FARMER. PRN Medication Order 06/16/2017 06/17/2017 06/18/2017 dexamethasone (DECADRON) injection (CANCELED) As needed, Starting on e 06/18/17 at 0915, Intra-Op 0918 (Given - Provid er: Clive Mackey MD - Comment: epidural) iohexol (OMNIPAQUE) 240 mg iodine/mL injection solution (CANCELED) As needed, Starting on 06/18/17 at 0915, Intra-Op 0918 (Given - Provid er: Clive Mackey MD) lidocaine (XYLOCAINE) 10 mg/mL (1 %) injection (CANCELED) As needed, Starting on e 1/16/18 at 0914, Intra-Op, Indications: Administration of Local Anesthesia 0914 (Given - Provid er: Clive Mackey MD - Comment: local) sodium chloride 0.9% 0.9 % solution (CANCELED) As needed, Starting on Sat06/18/17 at 0915, Intra-Op 0917 (Given - Provid er: Clive Mackey MD - Comment: epidural) documented in this encounter Care Teams Interventional Neuroradiologist Relationship Specialty [place] [address] [facility] [address] [place] [address] Rheumatology 02/21/17 Lashay Downs, RN Registered Nurse Pain Management 06/17/17 documented as of this encounter
--- OUTSIDE RECORDS SUMMARY | 2024-06-14 16:52 | XMS_ITS | Encounter Summary ---
Author Organization [facility] Healthcare Address [address] [place] [address] Care Team Providers Care Roll Over Loader Name Role Phone Alberto Stanton Primary Care Provider Unavailabl e Encounter Details Date Type Department Care Team (Late st Contact Info) Description 11/29/2016 7:27 AM CDT - 11/29/2016 11:59 PM CDT Hospital Encounter [facility] Alexia Caballero MD [address] [facility] [address] [place] [address] [place] [address] [place] [address] Discharge Disposition: Discharge to home or self care Social History Tobacco Use Types Packs/Day Years Used Date Smoking Tobacco: Heavy Smoker Comments:Smoking History Pac ks/day: 2 Packs Alcohol Use Standard Drinks/Week Comments No 0 (1 standard drink = 0.6 oz pur e alcohol) Sex and Gender Information Value Date Recorded Sex Assigned at Not on file 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 Gender Identity Not on file Sexual Orientation [...] exceed 200mgin 24hrs 0 0 04/25/2015 07/30/2017 documented as of this encounter Discharge Disposition Disposition Code Departure Means Destination Discharge to home or self care documented in this encounter Plan of Treatment Not on file documented as of this encounter Procedures Procedure Name Priority Date/Time Associated Diagnosis Comments CT ABDOMEN PELVIS WO CONTRAST Routine 11/29/2016 12:45 PM CDT documented in this encounter Results * CT Abdomen Pelvis WO Contrast (11/29/2016 12:45 PM CDT) Anatomical Region Laterality Modality Body N/A Computed Tomogra phy 11/29/2016 12:4 5 PM CDT Narrative 11/29/2016 12:[address] Abd/[place] ?[id number] ??Acc#: ??[id number] DATE OF EXAM: ??Nov 29 2016 ?? CT Abd/[place] ?[id number] HISTORY: BI KIDNEY STONES. TECHNIQUE: Serial axial images of the abdomen and pelvis obtained without contrast.. COMPARISON: CT KUB Stone protocol 10/06/2016. FINDINGS: Evaluation of the solid abdominal organs is limited by the lack of intravenous contrast. There are couple subpleural left lower lobe pulmonary nodules the largest measuring 5 mm that appear stable compared to a chest CT from 09/15/2014. ??Lung bases are otherwise clear. There is moderate atherosclerotic plaque in a normal caliber abdominal aorta. ??A retroaortic left renal vein noted There is a subcentimeter cyst in the left lobe of the liver. ??No other focal hepatic lesions or dilated intrahepatic ducts are seen. Gallbladder is normal. Spleen is normal. There are bilateral right greater than left nonobstructing renal stones the largest stone approximately 4 mm on the right. ??There are parapelvic renal cysts on the left and a cortical cyst on the right that measures 3 cm projecting in the posterior mid 3rd of the kidney. There are couple very small left renal cortical cysts as well. ??No ureter stones or bladder stones are demonstrated. ??The bladder wall does appear mildly thickened with evaluation limited by the lack of IV contrast. Adrenal glands are normal. Pancreas is normal. There are no dilated loops of small or large bowel or inflammatory bowel changes. ??Colon diverticulosis is noted. Appendix is normal. There is no free air, free fluid or adenopathy. The prostate gland is mildly enlarged. There is a minimal fat-containing umbilical hernia. No acute osseous abnormalities are identified. 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 IMPRESSION: 1 BILATERAL NONOBSTRUCTING RENAL STONES. 2. ??RIGHT CORTICAL RENAL CYST WITH LEFT PARAPELVIC RENAL CYSTS. 3. ??BLADDER WALL APPEARS MILDLY THICKENED WHICH IS NONSPECIFIC. EVALUATION OF THE BLADDER LIMITED BY THE LACK OF IV CONTRAST. Electronically signed by: Apolinar Garrison M.D. Interpreting Physician: ??APOLINAR GARRISON M.D. ??Read on: ??Nov 29 2016 ??8:09A Transcribed by: ??PSC ??On: Nov 29 2016 ??8:07A Approved Electronically by: ??APOLINAR GARRISON M.D. ??on: ??Nov 29 2016 ??8:07A Ordering DR: DR ROMANA GLASS Attending DR: ROMANA GLASS Attending: ??ROMANA GLASS Requesting: ??DR ROMANA GLASS Requesting Fax: ??[phone] Attending Fax: ??[phone] Attending ID: ??[id number] Requesting ID: ??[id number] Report To 1 ID: ??[id number] Report To 1 Name: ??DR ALEXIA CABALLERO Report To 1 FAX: ??[phone] [employer] Order #: ?? Procedure Note Miscellaneous, Not In File / Provider, MD Emmie - 11/29/2016 CT Abd/[place] [id number] Acc#: [id number] DATE OF EXAM: Nov [address] Abd/[place] [id number] HISTORY: BI KIDNEY STONES. TECHNIQUE: Serial axial images of the abdomen and pelvis obtained without contrast.. COMPARISON: CT KUB Stone protocol 10/06/2016. FINDINGS: Evaluation of the solid abdominal organs is limited by the lack of intravenous contrast. There are couple subpleural left lower lobe pulmonary nodules the largest measuring 5 mm that appear stable compared to a chest CT from 09/15/2014. Lung bases are otherwise clear. There is moderate atherosclerotic plaque in a normal caliber abdominal aorta. A retroaortic left renal vein noted There is a subcentimeter cyst in the left lobe of the liver. No other focal hepatic lesions or dilated intrahepatic ducts are seen. Gallbladder is normal. Spleen is normal. There are bilateral right greater than left nonobstructing renal stones the largest stone approximately 4 mm on the right. There are parapelvic renal cysts on the left and a cortical cyst on the right that measures 3 cm projecting in the posterior mid 3rd of the kidney. There are couple very small left renal cortical cysts as well. No ureter stones or bladder stones are demonstrated. The bladder wall does appear mildly thickened with evaluation limited by the lack of IV contrast. Adrenal glands are normal. Pancreas is normal. There are no dilated loops of small or large bowel or inflammatory bowel changes. Colon diverticulosis is noted. Appendix is normal. There is no free air, free fluid or adenopathy. The prostate gland is mildly enlarged. There is a minimal fat-containing umbilical hernia. No acute osseous abnormalities are identified. 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 IMPRESSION: 1 BILATERAL NONOBSTRUCTING RENAL STONES. 2. RIGHT CORTICAL RENAL CYST WITH LEFT PARAPELVIC RENAL CYSTS. 3. BLADDER WALL APPEARS MILDLY THICKENED WHICH IS NONSPECIFIC. EVALUATION OF THE BLADDER LIMITED BY THE LACK OF IV CONTRAST. Electronically signed by: Apolinar Garrison M.D. Interpreting Physician: APOLINAR GARRISON M.D. Read on: Nov 29 2016 8:09A Transcribed by: [facility] On: Nov 29 2016 8:07A Approved Electronically by: APOLINAR GARRISON M.D. on: Nov 29 2016 8:07A Ordering DR: DR ROMANA GLASS Attending DR: ROMANA GLASS Attending: ROMANA GLASS Requesting: DR ROMANA GLASS Requesting Attending Attending ID: [id number] Requesting ID: [id number] Report To 1 ID: [id number] Report To 1 Name: DR ALEXIA CABALLERO Report To 1 FAX: [phone] [facility] Order #: us Not In File Miscellaneous IMG CT PROCEDURES Mariaa l Result documented in this encounter Visit Diagnoses Not on filedocumented in this encounter Care Teams Roll Over Loader Relationship Specialty Start Date End Date Alberto Stanton PCP - General 08/31/16 05/01/17 documented as of this encounter
--- OUTSIDE RECORDS SUMMARY | 2024-06-14 16:52 | XMS_ITS | Encounter Summary ---
Author Organization [facility] Healthcare Address [address] [place] [address] Care Team Providers Care Ruching Machine Operator Name Role Phone Criss Blanco MD Unavailable Lashay Downs RN Unavailable Unavailab Duke Goodwin RN Unavailable Unavailabl e Encounter Details Date Type Department Care Team (Late st Contact Info) Description 09/10/2017 9:50 AM CDT Ancillary Procedure [facility] 1 [facility] [place] [address] Clive Mackey MD 2 [facility] [address] [place] [address] Social History Tobacco Use Types Packs/Day Years Used Date Smoking Tobacco: Former Cigarettes 2 30 Smokeless Tobacco: Never Comments:Smoking History Pac ks/day: 2 Packs Alcohol Use Standard Drinks/Week Comments Yes 2 (1 standard drink = 0.6 oz pur e alcohol) Sex and Gender Information Value Date Recorded Sex Assigned at Not on file Legal 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 Gender Identity Not on file Sexual Orientation Not on file documented as of this encounter Plan of Treatment Not on file documented as of this encounter Procedures Procedure Name Priority Date/Time Associated Diagnosis Comments XR SPINE LUMBAR 2 OR 3 VIEWS Routine 09/10/2017 9:58 AM CDT documented in this encounter Results [...] on filedocumented in this encounter Care Teams Ruching Machine Operator Relationship Specialty [place] [address] [facility] [address] [place] [address] Rheumatology 02/21/17 Lashay Downs, RN Registered Nurse Pain Management 06/17/17 Duke Do, RN Registered Nurse 09/09/17 documented as of this encounter
--- OUTSIDE RECORDS SUMMARY | 2024-06-14 16:52 | XMS_ITS | Encounter Summary ---
Author Organization [facility] Healthcare Address [address] [place] [address] Care Team Providers Care Cleat Feeder Name Role Phone Criss Blanco MD Unavailable Lashay Downs RN Unavailable Unavailab Duke Goodwin RN Unavailable Unavailabl e Reason for Visit * Reason Comments Follow-up post injection Encounter Details Date Type Department Care Team (Late st Contact Info) Description 09/09/2017 3:00 PM CDT Office Visit [facility] 2 [facility] A, [facility] [address] [place] [address] Clive Mackey MD [address] [place] [address] [address] [place] [address] Acute bilateral low back pain without sciatica (Primary Dx); DDD (degenerative disc disease), lumbar Discharge Disposition: Discharge to home or self [...] on file 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 Gender Identity Not on file Sexual Orientation Not on file documented as of this encounter Last Filed Vital Signs Vital Sign Reading Time Taken Comments Blood Pressure 123/93 09/09/2017 3:13 PM CDT Pulse 72 09/09/2017 3:13 PM CDT Temperature - - Respiratory Rate - - Oxygen Saturation - - Inhaled Oxygen Concentration - - Weight - - Height - - Body Mass Index - - documented in this encounter Discharge Disposition Disposition Code Departure Means Destination Discharge to home or self care documented in this encounter Progress Notes * Duke Do RN - 09/09/2017 3:00 PM CDT Pt weight bearing, gait unsteady. Reports continuous pain to low back, onset approx one week ago. Pt denies any fall or trauma. 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 Pt thinks captain's chair has caused all the problem. All activity seems to aggravate pain, walking, standing, sitting. Lying flat in bed tends to help alleviate pain. Dr Mackeyrecdougie ANUSHA therapy, plan on L5-S1 TLESI. * Clive Mackey MD - 09/09/2017 3:00 PM CDT CC: Axial LBP. HPI: Following his last SNRI his Rt L5 dist leg pain resolved. [place] and hispilot chair was very uncomfortable. Now having severe axial LBP only. No leg Sxs. No B/B changes. ROS: Review of Systems Constitutional: Negative for chills and fever. Musculoskeletal: Positive for back pain. Negative for arthralgias, gait problem and myalgias. Neurological: Negative for weakness and numbness. FAM HX: Family History Problem Relation Age of Onset ??? Diabetes Father Diabetes mellitus; /Diabetes mellitus; ??? Other Other adopted ??? Other Other adopted PEX: General:alert and oriented Back: tenderness to palpation L5-S1 lumbar interspace. SLR neg. LE motor 5/5. LE sensory intact to touch. Imaging: None new Assessment: Discogenic axial LBP Plan: L5-S1 LESI X 2. documented in this encounter Plan of Treatment Not on file documented as of this encounter Visit Diagnoses Diagnosis Acute bilateral low back pain without sciatica- Primary DDD (degenerative disc disease), lumbar Degeneration of lumbar or lumbosacral intervertebral disc documented in this encounter Care Teams Cleat Feeder Relationship Specialty [place] [address] [facility] [address] [place] [address] Rheumatology 02/21/17 Lashay Downs, RN Registered Nurse Pain Management 06/17/17 Duke Do, RN Registered Nurse 09/09/17 documented as of this encounter
--- OUTSIDE RECORDS SUMMARY | 2024-06-14 16:52 | XMS_ITS | Encounter Summary ---
Author Organization [facility] Healthcare Address [address] [place] [address] Care Team Providers Care Wafer Polishing Lead Worker Name Role Phone Criss Blanco MD Unavailable Lashay Downs RN Unavailable Unavailab le Encounter Details Date Type Department Care Team (Late st Contact Info) Description 07/30/2017 8:45 AM MEDICAL ASSISTANT DERMATOLOGY Ancillary Procedure [facility] 1 [facility] [address] Clive Mackey MD 2 [facility] [address] [place] [address] Pain Social History Tobacco Use Types Packs/Day Years Used Date Smoking Tobacco: Former Cigarettes 2 30 Smokeless Tobacco: Never Comments:Smoking History Pac ks/day: 2 Packs Alcohol Use Standard Drinks/Week Comments Yes 2 (1 standard drink = 0.6 oz pur e alcohol) Sex and Gender Information Value Date Recorded Sex Assigned at Not on file Legal Sex Male 12:56 AM MEDICAL ASSISTANT DERMATOLOGY Gender Identity Not on file Sexual Orientation Not on file documented as of this encounter Plan of Treatment Not on file documented as of this encounter Procedures Procedure Name Priority Date/Time Associated Diagnosis Comments XR SPINE LUMBAR 2 OR 3 VIEWS Schedule Routine, Read Routine (OP Routine) 07/30/2017 9:27 AM MEDICAL ASSISTANT DERMATOLOGY Pain documented in this encounter Results * XR Spine Lumbar 2 or 3 Views (07/30/2017 9:27 AM MEDICAL ASSISTANT DERMATOLOGY) Narrative [facility] - 07/30/2017 9:28 AM MEDICAL ASSISTANT DERMATOLOGY The images from this study are not interpreted by Radiology. ??Please refer to the physician's procedure / OR operative note. us Clive Mackey MD IMG XR PROCEDURES Final Re sult [facility] documented in this encounter Visit Diagnoses Diagnosis Pain Generalized pain documented in this encounter Care Teams Wafer Polishing Lead Worker Relationship Specialty [place] [address] [facility] [address] [place] [address] Rheumatology 02/21/17 Lashay Downs, RN Registered Nurse Pain Management 06/17/17 documented as of this encounter
--- OUTSIDE RECORDS SUMMARY | 2024-06-14 16:52 | XMS_ITS | Encounter Summary ---
Author Organization [facility] Healthcare Address [address] [place] [address] Care Team Providers Care Label Remover Name Role Phone Criss Blanco MD Unavailable Lashay Downs RN Unavailable Unavailab Duke Goodwin RN Unavailable Unavailabl e Encounter Details Date Type Department Care Team (Late st Contact Info) Description 09/17/2017 9:10 AM CDT Ancillary Procedure [facility] 1 [facility] [place] [address] Clive Mackey MD 2 [facility] [address] [place] [address] Social History Tobacco Use Types Packs/Day Years Used Date Smoking Tobacco: Former Cigarettes 2 30 Smokeless Tobacco: Never Comments:Smoking History Pac ks/day: 2 Packs Alcohol Use Standard Drinks/Week Comments Yes 2 (1 standard drink = 0.6 oz pur e alcohol) Sex and Gender Information Value Date Recorded Sex Assigned at Not on file 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 Gender Identity Not on file Sexual Orientation Not on file documented as of this encounter Plan of Treatment Not on file documented as of this encounter Procedures Procedure Name Priority Date/Time Associated Diagnosis Comments XR SPINE LUMBAR 2 OR 3 VIEWS IP Routine 09/17/2017 9:13 AM CDT documented in this encounter Results [...] filedocumented in this encounter Care Teams Label Remover Relationship Specialty [place] [address] [facility] [address] [place] [address] Rheumatology 02/21/17 Lashay Downs, RN Registered Nurse Pain Management 06/17/17 Duke Do, RN Registered Nurse 09/09/17 documented as of this encounter
--- OUTSIDE RECORDS SUMMARY | 2024-06-14 16:52 | XMS_ITS | Encounter Summary ---
Author Organization [facility] Address [address] [facility] [address] [place] [address] Care Team Providers Care Zigzag Tunnel Elastic Operator Name Role Phone Alberto StantonAshanti Primary Care Provider UnavailCriss Abad MD Unavailable Lashay Downs RN Unavailable Unavailab Duke Goodwin RN Unavailable UnavailNgozi Husain MD Unavailable [phone] Jose Roberto Marx MD Unavailable [phone] Encounter Details Date Type Department Care Team (Late st Contact Info) Description 11/28/2016 Orders Only [facility] Health Information Management [address] [place] [address] Scanning, Provider Social History Tobacco Use Types [...] on file 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 Gender Identity Not on file Sexual Orientation Not on file documented as of this encounter Plan of Treatment Not on file documented as of this encounter Procedures Procedure Name Priority Date/Time Associated Diagnosis Comments SCAN - RADIOLOGY/IMAGING 11/28/2016 3:03 PM CDT documented in this encounter Results * SCAN - RADIOLOGY/IMAGING (11/28/2016 3:03 PM CDT) Anatomical Region Laterality Modality Other us Provider Scanning Final Result documented in this encounter Visit Diagnoses Not on filedocumented in this encounter Care Teams Zigzag Tunnel Elastic Operator Relationship Specialty Start Date End Date Alberto Stanton PCP - General 08/31/16 05/01/17 [place] [address] [facility] [address] [place] [address] Rheumatology 02/21/17 Lashay Downs, RN Registered Nurse Pain Management 06/17/17 Duke Do, RN Registered Nurse 09/09/17 Ngozi Petty MD Radiation Oncologist Radiation Oncology 02/05/19 Jose Roberto Marx MD Referring Physician Otolaryngology 02/05/19 documented as of this encounter
--- OUTSIDE RECORDS SUMMARY | 2024-06-14 16:52 | XMS_ITS | Encounter Summary ---
Author Organization [facility] Healthcare Address [address] [place] [address] Care Team Providers Care Chick Grader Name Role Phone Criss Blanco MD Unavailable Lashay Downs RN Unavailable Unavailab le Encounter Details Date Type Department Care Team (Latest Contact Info) Description 07/09/2017 8:32 AM FACILITY MAINTENANCE WORKER - 07/09/2017 9:16 AM FACILITY MAINTENANCE WORKER Hospital Encounter [facility] [address] [place] [address] [place] [address] Clive Mackey MD 2 [facility] [address] [place] [address] Discharge Disposition: Discharge to home or self [...] on file Legal Sex Male 12:56 AM FACILITY MAINTENANCE WORKER Gender Identity Not on file Sexual Orientation Not on file documented as of this encounter Last Filed Vital Signs Vital Sign Reading Time Taken Comments Blood Pressure 127/87 07/09/2017 9:09 AM FACILITY MAINTENANCE WORKER Pulse 72 07/09/2017 9:09 AM FACILITY MAINTENANCE WORKER Temperature 35.8 ??C (96.4 ??F) 07/09/2017 8:40 AM CS T Respiratory Rate - - Oxygen Saturation 97% 07/09/2017 9:09 AM FACILITY MAINTENANCE WORKER Inhaled Oxygen Concentration - - Weight - - Height - - Body Mass Index - - documented in this encounter Discharge Instructions * Discharge Instructions* Duke Do RN - 07/09/2017 8:59 AM FACILITY MAINTENANCE WORKER Discharge instructions reviewed. Signed copy given to patient. Patient verbalized understanding. Patient to return in one week for 2nd injection. LITY MAINTENANCE WORKER documented in this encounter Medications at Time [...] Op Note - Clive Mackey MD - 07/09/2017 8:45 AM CST Lumbar transforaminal injection The patient comes in today for planned injection therapy. He comes in today for his 1st Rt L5 SNRI. Patient was brought to the procedure room [...] 240. This showed spread of dye inferior to the pedicle then over to midline and down the S1 sleeve with concordant Sxs. Followed this with 10 mg of Dexamethasonein 1 cc of saline, removed the needle, placed a sterile dressing, and returned the patient to theirclinic room. Following observation and vital signs they will be discharged home. ICD 10 code: M54.16 LITY MAINTENANCE WORKER documented in this encounter Plan of Treatment Not on file documented as of this encounter Procedures Procedure Name Priority Date/Time Associated Diagnosis Comments INJECTION TRANSFORAMINAL LUMBO/SACRAL 1 LEVEL BILATERAL 98702-28 07/09/2017 8:58 AM FACILITY MAINTENANCE WORKER Case Notes RT PARA L4-5 (TLESI) documented in this encounter Visit Diagnoses Not on filedocumented in this encounter Active and Recently Administered Medications Times are shown in FACILITY MAINTENANCE WORKER. PRN Medication Order 07/07/2017 07/08/2017 07/09/2017 dexamethasone (DECADRON) injection (CANCELED) As needed, Starting on Sat07/09/17 at 0852, Intra-Op 0852 (Given - Provid er: Clive Mackey MD - Comment: Epidural) iohexol (OMNIPAQUE) 240 mg iodine/mL injection solution (CANCELED) As needed, Starting on 07/09/17 at 0852, Intra-Op 0852 (Given - Provid er: Clive Mackey MD) lidocaine (XYLOCAINE) 10 mg/mL (1 %) injection (CANCELED) As needed, Starting on 07/09/17 at 0852, Intra-Op, Indications: Administration of Local Anesthesia 0852 (Given - Provid er: Clive Mackey MD - Comment: Local) sodium chloride 0.9% solution (CANCELED) As needed, Starting on 07/09/17 at 0853, Intra-Op 0853 (Given - Provid er: Clive Mackey MD - Comment: Epidural) documented in this encounter Orders Medications Ordered That Quinn ht Not Have Been Administered Count Last Ordered Date First Ordered Date dexamethasone (DECADRON) injection 1 2017 iohexol (OMNIPAQUE) 240 mg i odine/mL injection solution 1 07/09/2017 lidocaine (XYLOCAINE) 10 mg/ mL (1 %) injection 1 07/09/2017 sodium chloride 0.9% solution 1 07/09/2017 documented in this encounter Care Teams Chick Grader Relationship Specialty [place] [address] [address] Rheumatology 02/21/17 Lashay Downs, GAY Registered Nurse Pain Management 06/17/17 documented as of this encounter
--- OUTSIDE RECORDS SUMMARY | 2024-06-14 16:52 | XMS_ITS | Encounter Summary ---
Author Organization [facility] Healthcare Address [address] [place] [address] Care Team Providers Care Hat Mender Name Role Phone Criss Blanco MD Unavailable Lashay Downs RN Unavailable Unavailab Duke Goodwin RN Unavailable Unavailabl e Reason for Visit * Reason Onset Date Comments Follow-up 09/11/2017 inj Encounter Details Date Type Department Care Team (Late st Contact Info) Description 09/11/2017 Telephone [facility] 2 [facility] A, [facility] [address] [place] [address] Clive Mackey MD [address] [place] [address] [address] [place] [address] Follow-up (inj) Social History Tobacco Use Types Packs/Day Years Used Date Smoking Tobacco: Former Cigarettes 2 30 Smokeless Tobacco: Never Comments:Smoking History Pac ks/day: 2 Packs Alcohol Use Standard Drinks/Week Comments Yes 2 (1 standard drink = 0.6 oz pur e alcohol) Sex and Gender Information Value Date Recorded Sex Assigned at Not on file Legal Sex Male 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 documented in this encounter Plan of Treatment Not on file documented as of this encounter Visit Diagnoses Not on filedocumented in this encounter Care Teams Hat Mender Relationship Specialty [place] [address] [facility] [address] [place] [address] Rheumatology 02/21/17 Lashay Downs, RN Registered Nurse Pain Management 06/17/17 Duke Do, RN Registered Nurse 09/09/17 documented as of this encounter
--- OUTSIDE RECORDS SUMMARY | 2024-06-14 16:52 | XMS_ITS | Encounter Summary ---
Author Organization [facility] Healthcare Address [address] [place] [address] Care Team Providers Care Ranch Hand Supervisor Name Role Phone Criss Blanco MD Unavailable Lashay Downs RN Unavailable Unavailab le Encounter Details Date Type Department Care Team (Late st Contact Info) Description 07/09/2017 8:45 AM CORPORATE COMMUNICATIONS ASSOCIATE - 07/09/2017 9:[address] [facility] Surgery [facility] [address] [place] [address] [address] [place] [address] Clive Mackey MD [address] [place] [address] [address] [place] [address] Injection Transforaminal Lumbo/Sacral 1 Level Bilateral [id number] Surgery Details Date/Time Status Location OR Service Patient Class Case Class Case Type Trauma Case? 07/09/2017 8:45 AM Posted [facility] Pain Management Procedure Center [facility] PM 1 Pain Management Outpatient Elective Panel 1 Procedure LRB Anes Op Region Wound Class Comments Injection Transforaminal Lum barrera/Sacral 1 Level Bilateral 77824-58 Right Local Back Surgeon Surgeon Role Service Panel Clive Mackey MD Primary Pain Management 1 Case Notes RT PARA L4-5 (TLESI) documented in this encounter Social History Tobacco Use Types Packs/Day Years Used Date Smoking Tobacco: Former Cigarettes 2 30 Smokeless Tobacco: Never Comments:Smoking History Pac ks/day: 2 Packs Alcohol Use Standard Drinks/Week Comments Yes 2 (1 standard drink = 0.6 oz pur e alcohol) Sex and Gender Information Value Date Recorded Sex Assigned at Not on file Legal Sex Male 12:56 AM CORPORATE COMMUNICATIONS ASSOCIATE Gender Identity Not on file Sexual Orientation Not on file documented as of this encounter Last Filed Vital Signs Vital Sign Reading Time Taken Comments Blood Pressure 118/77 07/09/2017 8:40 AM CORPORATE COMMUNICATIONS ASSOCIATE Pulse 75 07/09/2017 8:40 AM CORPORATE COMMUNICATIONS ASSOCIATE Temperature 35.8 ??C (96.4 ??F) 07/09/2017 8:40 AM CS T Respiratory Rate - - Oxygen Saturation - - Inhaled Oxygen Concentration - - Weight - - Height - - Body Mass Index - - documented in this encounter Discharge Instructions * Discharge Instructions* Duke Do RN - 07/09/2017 8:59 AM CORPORATE COMMUNICATIONS ASSOCIATE Discharge instructions reviewed. Signed copy given to patient. Patient verbalized understanding. Patient to return in one week for 2nd injection. ORATE COMMUNICATIONS ASSOCIATE documented in this encounter Medications at [...] be discharged home. ICD 10 code: M54.16 ORATE COMMUNICATIONS ASSOCIATE documented in this encounter Plan of Treatment Not on file documented as of this encounter Procedures Procedure Name Priority Date/Time Associated Diagnosis Comments INJECTION TRANSFORAMINAL LUMBO/SACRAL 1 LEVEL BILATERAL 20399-10 07/09/2017 8:58 AM CORPORATE COMMUNICATIONS ASSOCIATE Case Notes RT PARA L4-5 (TLESI) documented in this encounter Visit Diagnoses Not on filedocumented in this encounter Administered Medications Inactive Administered Medications - up to 3 most recent administrations Medication Order MAR Action Action Date Dose Rate Site dexamethasone (DECADRON) injection As needed, Starting on 07/09/17 at 0852, Intra-Op Given 07/09/2017 8:52 AM CORPORATE COMMUNICATIONS ASSOCIATE 10 mg Back iohexol (OMNIPAQUE) 240 mg iodine/mL injection solution As needed, Starting on 07/09/17 at 0852, Intra-Op Given 07/09/2017 8:52 AM CORPORATE COMMUNICATIONS ASSOCIATE 4 mL Back lidocaine (XYLOCAINE) 10 mg/mL (1 %) injection As needed, Starting on 07/09/17 at 0852, Intra-Op, Indications: Administration of Local AnesthesiaIndications:Administratio n of Local Anesthesia Given 07/09/2017 8:52 AM CORPORATE COMMUNICATIONS ASSOCIATE 2 mL Back sodium chloride 0.9% solution As needed, Starting on 07/09/17 at 0853, Intra-Op Given 07/09/2017 8:53 AM CORPORATE COMMUNICATIONS ASSOCIATE 2 mL Back documented in this encounter Active and Recently Administered Medications Times are shown in CORPORATE COMMUNICATIONS ASSOCIATE. PRN Medication Order 07/07/2017 07/08/2017 07/09/2017 dexamethasone (DECADRON) injection (CANCELED) As needed, Starting on 07/09/17 [...] Epidural) documented in this encounter Care Teams Ranch Hand Supervisor Relationship Specialty [place] [address] [facility] [address] [place] [address] Rheumatology 02/21/17 Lashay Downs, RN Registered Nurse Pain Management 06/17/17 documented as of this encounter
--- OUTSIDE RECORDS SUMMARY | 2024-06-14 16:52 | XMS_ITS | Encounter Summary ---
Author Organization [facility] Healthcare Address [address] [place] [address] Care Team Providers Care Balloon Design Printer Name Role Phone Alberto Stanton Primary Care Provider Unavailabl e Encounter Details Date Type Department Care Team (Late st Contact Info) Description 11/12/2016 8:57 AM CDT - 11/12/2016 11:59 PM CDT Hospital Encounter [facility] INTERIM Alexia Redd MD [address] [facility] [address] [address] Discharge Disposition: Discharge to home or self care Social History Tobacco Use Types Packs/Day Years Used Date Smoking Tobacco: Heavy Smoker Comments:Smoking History Pac ks/day: 2 Packs Alcohol Use Standard Drinks/Week Comments No 0 (1 standard drink = 0.6 oz pur e alcohol) Sex and Gender Information Value Date Recorded Sex Assigned at Not on file 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 Gender Identity Not on file Sexual Orientation Not on file documented as of this encounter Medications at Time of Discharge folic acid (FOLVITE) 1 mg tablet take 1 tablet by oral route every day 30 6 05/31/2015 8 cyclobenzaprine (FLEXERIL) 10 mg tablet take 1 tablet by ORAL route 3 times every day 30 0 08/13/2016 7 folic acid (FOLVITE) 1 mg tablet take 1 tablet by oral route every day 0 0 08/13/2016 7 ipratropium (ATROVENT) 0.06 % nasal spray spray 2 spray by intranasal route every day in each nostril 0 spray 0 09/26/2015 7 methotrexate 2.5 mg tablet take 6 Tablet by ORAL route every week 0 0 08/13/2016 8 methylPREDNISolo ne (MEDROL, RADHA,) 4 mg tablet take by Oral route as directed on package 1 0 05/15/2012 7 montelukast (SINGULAIR) 10 mg tablet take 1 tablet by ORAL route every day prn 0 0 09/26/2015 7 naltrexone (DEPADE) 50 mg tablet take 1 tablet by oral route every day 0 0 08/13/2016 7 omeprazole (PriLOSEC) 20 mg capsule TAKE 1 CAPSULE (20MG) BY ORAL ROUTE EVERY DAY BEFORE A MEAL 90 2 11/03/2009 7 omeprazole (PriLOSEC) 20 mg capsule TAKE 1 CAPSULE (20MG) BY ORAL ROUTE EVERY DAY BEFORE A MEAL 90 2 11/03/2009 7 raNITIdine (ZANTAC) 300 mg tablet take 1 tablet by oral route every day at bedtime 0 0 08/01/2015 7 SUMAtriptan (IMITREX) 100 mg tablet take 1 tablet by oral route once with fluids as early as possible after the onset of a migraine attack;may repeat after 2 hours if headache returns, not to exceed 200mgin 24hrs 0 0 04/25/2015 8 SUMAtriptan (IMITREX) 100 mg tablet take 1 tablet by oral route once with fluids as early as possible after the onset of a migraine attack;may repeat after 2 hours if headache returns, not to exceed 200mgin 24hrs 0 0 04/25/2015 7 documented as of this encounter Discharge Disposition Disposition Code Departure Means Destination Discharge to home or self care documented in this encounter Plan of Treatment Not on file documented as of this encounter Procedures Procedure Name Priority Date/Time Associated Diagnosis Comments US KIDNEY COMPLETE Routine 11/12/2016 3: 04 PM CDT XR ABDOMEN AP 1V Routine 11/12/2016 2:12 PM CDT documented in this encounter Results * US Kidney Complete (11/12/2016 3:04 PM CDT) Anatomical Region Laterality Modality Kidney N/A Ultrasound 11/12/2016 3:04 PM CDT Narrative 11/12/2016 3:04 PM CDT US Kidney(s) [id number] ??Acc#: ??[id number] DATE OF EXAM: ??Nov 12 2016 ?? ADDENDUM #1 US Kidney(s) 07903 HISTORY: BILATERAL KIDNEY STONES. TECHNIQUE: Longitudinal transverse real-time scans obtained. COMPARISON: None available. FINDINGS: Mild left pelvocaliectasis. ??No significant dilatation of collecting system the right kidney. ??Right kidney measuring 11.9 x 5.5 x 5.9 cm, left kidney measures 13.1 x 5.4 x 5.3 cm. ??A cyst right kidney approximately mid pole measures 2.7 x 2.7 cm. ??Urinary bladder mild to moderately distended with urine. IMPRESSION: 1. ??MILD LEFT PELVOCALIECTASIS. 2. ??RIGHT RENAL CYST. Electronically signed by: Bev Pandya M.D Edited by: Shonda Abreu ORIGINAL REPORT - ADDENDUM ABOVE US Kidney(s) [id number] HISTORY: BILATERAL KIDNEY STONES. TECHNIQUE: Longitudinal transverse real-time scans are obtained. COMPARISON: None available. FINDINGS: Mild left pelvocaliectasis. ??No some dilatation of collecting system the right kidney. ??Right kidney measuring 1.9 x 5.5 x 5.9 cm, left kidney measures 13.1 x 5.4 x 5.3 cm. ??A cyst right kidney approximately mid pole measures 2.7 x 2.7 cm. ??Urinary bladder mild to moderately distended with urine. IMPRESSION: 1. ??MILD LEFT PELVOCALIECTASIS. 2. ??RIGHT RENAL CYST. Electronically signed by: Bev Pandya M.D Interpreting Physician: ??BEV PANDYA M.D. ??Read on: ??Nov 12 2016 10:23A Transcribed by: ??PSC ??On: Nov 12 2016 ??3:49P Approved Electronically by: ??BEV PANDYA M.D. ??on: ??Nov 12 2016 ??3:49P Ordering DR: DR ALEXIA REDD Attending DR: DR ALEXIA REDD Attending: ??DR ALEXIA REDD Requesting: ??DR ALEXIA REDD Requesting Fax: ??[phone] Attending Fax: ??[phone] Attending ID: ??[id number] Requesting ID: ??[id number] Report To 1 ID: ??[id number] Report To 1 Name: ??DR ALEXIA REDD Report To 1 FAX: ??[phone] NextGen Order #: ?? Procedure Note Miscellaneous, Not In File / Provider, MD Emmie - 11/15/2016 Kidney(s) [id number] Acc#: [id number] DATE OF EXAM: Nov 12 2016 ADDENDUM #1 Kidney(s) 93978 HISTORY: BILATERAL KIDNEY STONES. TECHNIQUE: Longitudinal transverse real-time scans obtained. COMPARISON: None available. FINDINGS: Mild left pelvocaliectasis. No significant dilatation of collecting system the right kidney. Right kidney measuring 11.9 x 5.5 x 5.9 cm, left kidney measures 13.1 x 5.4 x 5.3 cm. A cyst right kidney approximately mid pole measures 2.7 x 2.7 cm. Urinary bladder mild to moderately distended with urine. IMPRESSION: 1. MILD LEFT PELVOCALIECTASIS. 2. RIGHT RENAL CYST. Electronically signed by: Bev Pandya M.D Edited by: Shonda Abreu ORIGINAL REPORT - ADDENDUM ABOVE US Kidney(s) 11592 HISTORY: BILATERAL KIDNEY STONES. TECHNIQUE: Longitudinal transverse real-time scans are obtained. COMPARISON: None available. FINDINGS: Mild left pelvocaliectasis. No some dilatation of collecting system the right kidney. Right kidney measuring 1.9 x 5.5 x 5.9 cm, left kidney measures 13.1 x 5.4 x 5.3 cm. A cyst right kidney approximately mid pole measures 2.7 x 2.7 cm. Urinary bladder mild to moderately distended with urine. IMPRESSION: 1. MILD LEFT PELVOCALIECTASIS. 2. RIGHT RENAL CYST. Electronically signed by: Bev Pandya M.D Interpreting Physician: BEV PANDYA M.D. Read on: Nov 12 2016 10:23A Transcribed by: JUAN ALBERTO On: Nov 12 2016 3:49P Approved Electronically by: BEV PANDYA M.D. on: Nov 12 2016 3:49P Ordering DR: DR ALEXIA REDD Attending DR: DR ALEXIA REDD Attending: DR ALEXIA REDD Requesting: DR ALEXIA REDD Requesting Attending Attending ID: [id number] Requesting ID: [id number] Report To 1 ID: [id number] Report To 1 Name: DR ALEXIA REDD Report To 1 FAX: [phone] NextGen Order #: us Not In File Miscellaneous IMG US PROCEDURES Mariaa l Result * XR Abdomen AP 1V (11/12/2016 2:12 PM CDT) Anatomical Region Laterality Modality Body N/A Radiographic Corin ging 11/12/2016 2:12 PM CDT Narrative 11/12/2016 2:12 PM CDT XR KUB ?[id number] ??Acc#: ??[id number] DATE OF EXAM: ??Nov 12 2016 ?? XR KUB ?[id number] HISTORY: BILATERAL KIDNEY STONES. COMPARISON: None available. FINDINGS: Small intrarenal calculi right kidney. ??Largest calculus is at the mid pole the right kidney, measuring 3.6 mm. ??Also very small intrarenal calculi left kidney. ??No dilated loops of small bowel. Atherosclerotic changes. ??Degenerative change of the lower thoracic and lumbar spine and hips. IMPRESSION: 1. ??SMALL INTRARENAL CALCULI BILATERALLY. 2. ??NONOBSTRUCTIVE BOWEL GAS PATTERN. Electronically signed by: Bev Pandya M.D Interpreting Physician: ??BEV PANDYA M.D. ??Read on: ??Nov 12 2016 10:13A Transcribed by: ??PSC ??On: Nov 12 2016 10:11A Approved Electronically by: ??BEV PANDYA M.D. ??on: ??Nov 12 2016 10:11A Ordering DR: DR ALEXIA REDD Attending DR: DR ALEXIA REDD Attending: ??DR ALEXIA REDD Requesting: ??DR ALEXIA REDD Requesting Fax: ??[phone] Attending Fax: ??[phone] Attending ID: ??[id number] Requesting ID: ??[id number] Report To 1 ID: ??[id number] Report To 1 Name: ??DR ALEXIA REDD Report To 1 FAX: ??[phone] NextGen Order #: ?? Procedure Note Miscellaneous, Not In File / Provider, MD Emmie - 11/12/2016 XR KUB [id number] Acc#: [id number] DATE OF EXAM: Nov 12 2016 XR KUB [id number] HISTORY: BILATERAL KIDNEY STONES. COMPARISON: None available. FINDINGS: Small intrarenal calculi right kidney. Largest calculus is at the mid pole the right kidney, measuring 3.6 mm. Also very small intrarenal calculi left kidney. No dilated loops of small bowel. Atherosclerotic changes. Degenerative change of the lower thoracic and lumbar spine and hips. IMPRESSION: 1. SMALL INTRARENAL CALCULI BILATERALLY. 2. NONOBSTRUCTIVE BOWEL GAS PATTERN. Electronically signed by: Bev Pandya M.D Interpreting Physician: BEV PANDYA M.D. Read on: Nov 12 2016 10:13A Transcribed by: [facility] On: Nov 12 2016 10:11A Approved Electronically by: BEV PANDYA M.D. on: Nov 12 2016 10:11A Ordering DR: DR ALEXIA REDD Attending DR: DR ALEXIA REDD Attending: DR ALEXIA REDD Requesting: DR ALEXIA REDD Requesting Attending Attending ID: [id number] Requesting ID: [id number] Report To 1 ID: [id number] Report To 1 Name: DR ALEXIA REDD Report To 1 FAX: [phone] NextGen Order #: us Not In File Miscellaneous IMG XR PROCEDURES Mariaa l Result documented in this encounter Visit Diagnoses Not on filedocumented in this encounter Care Teams Balloon Design Printer Relationship Specialty Start Date End Date Alberto Stanton PCP - General 08/31/16 05/01/17 documented as of this encounter
--- OUTSIDE RECORDS SUMMARY | 2024-06-14 16:52 | XMS_ITS | Encounter Summary ---
Author Organization [facility] Healthcare Address [address] [place] [address] Care Team Providers Care Global Account Manager Name Role Phone Criss Blanco MD Unavailable Lashay Downs RN Unavailable Unavailab le Encounter Details Date Type Department Care Team (Late st Contact Info) Description 06/25/2017 9:00 AM ACADEMY EDUCATION DIRECTOR Ancillary Procedure [facility] [address] [place] [address] Clive Mackey MD 2 [facility] [address] [place] [address] Social History Tobacco Use Types Packs/Day Years Used Date Smoking Tobacco: Former Cigarettes 2 30 Smokeless Tobacco: Never Comments:Smoking History Pac ks/day: 2 Packs Alcohol Use Standard Drinks/Week Comments Yes 2 (1 standard drink = 0.6 oz pur e alcohol) Sex and Gender Information Value Date Recorded Sex Assigned at Not on file 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 ??Please refer to the physician's procedure / OR operative note. us Clive Mackey MD IMG XR PROCEDURES Final Re sult [facility] documented in this encounter Visit Diagnoses Not on filedocumented in this encounter Care Teams Global Account Manager Relationship Specialty [place] [address] [facility] [address] [place] [address] Rheumatology 02/21/17 Lashay Downs, RN Registered Nurse Pain Management 06/17/17 documented as of this encounter
--- OUTSIDE RECORDS SUMMARY | 2024-06-14 16:52 | XMS_ITS | Encounter Summary ---
Author Organization [facility] Address [address] [place] [id number] Phone Care Team Providers Care Interactive Multimedia Designer Name Role Phone Alberto Stanton Primary Care Provider Criss Robertson MD Unavailable Reason for Visit * Reason Comments Rheumatoid Arthritis Encounter Details Date Type Department Care Team (Late st Contact Info) Description 02/21/2017 10:00 AM CDT Office Visit [facility] [address] 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 Subjective/Objective Patient ID: Samuel Sanchez is a 71 y.o. male. Chief Complaint Rheumatoid Arthritis Patient denies any hand pain or stiffness. He denies any SE from the MTX. He is taking the Mtx. He does not have any pain and is wondering if he really needs to be a patient in this office. Review of Systems Constitutional: Negative for activity change, fatigue and fever. HENT: Negative for mouth sores. Eyes: Negative for pain. Respiratory: Negative for shortness of breath and wheezing. Cardiovascular: Negative for chest pain. Gastrointestinal: Negative for abdominal pain. Musculoskeletal: Positive for arthralgias. Negative for joint swelling. Skin: Negative for rash. Vitals: Vitals: 02/21/17 0947 BP: 120/80 Pulse: 84 Physical Exam Constitutional: She is oriented to person, place, and time. She appears well- developed and well-nourished. HENT: Pupils equal, no mouth sores noted. Head: Normocephalic. Neck: Neck supple. Cardiovascular: Normal rate, regular rhythm and normal heart sounds. Pulmonary/Chest: Effort normal and breath sounds normal. Musculoskeletal: See CDAI. Neurological: She is alert and oriented to person, place, and time. Skin: Skin is warm and dry. Psychiatric: She has a normal mood and affect. Labs Lab Results Component Value Date WBC 5.9 11/21/2016 HGB 16.3 11/21/2016 HCT 48.1 11/21/2016 MCV 95.4 11/21/2016 Lab Results Component Value Date GLUCOSE 86 11/21/2016 CALCIUM 9.8 11/21/2016 SODIUM 141 11/21/2016 POTASSIUM 4.0 11/21/2016 CO2 27 11/21/2016 CHLORIDE 106 11/21/2016 BUNSER 22 11/21/2016 CREATININE 1.13 11/21/2016 Lab Results Component Value Date ALT 20 11/21/2016 AST 14 11/21/2016 ALKPHOS 49 11/21/2016 BILITOT 0.9 11/21/2016 Lab Results Component Value Date SEDRATE 2 11/21/2016 Lab Results Component Value Date CRP <0.10 11/21/2016 Recent u/s Hand/wrist 05/18: Moderate synovitis, effusions and power doppler. Irregular lunate and possible radial erosion. Assessment/Plan Diagnoses and all orders for this visit: 1. 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 Orders: - CBC with auto differential; Future - Comprehensive metabolic panel; Future - CRP (acute phase); Future - Erythrocyte sedimentation rate; Future 2. 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 Cosigned by Criss Blanco MD at 02/21/2017 1:20 PM CDT * Anabell Ward PA - 02/21/2017 10:00 AM CDT Labs stable. documented in this encounter Miscellaneous Notes * Assessment & Plan Note - Anabell Ward PA - 02/21/2017 10:12 AM CDT Associated Problem(s): [facility] use of drug Will continue to monitor the patient with routine labs. 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) ERYTHROCYTE SEDIMENTATION RATE Routine 02/21/2017 10:44 AM CDT Seropositive rheumatoid arthritis of multiple sites (CMS/[facility]) CRP (ACUTE PHASE) Routine 02/21/2017 10: 44 AM CDT Seropositive rheumatoid arthritis of multiple sites (CMS/[facility]) COMPREHENSIVE METABOLIC PANEL Routine 02/21/2017 10:44 AM CDT Seropositive rheumatoid arthritis of multiple sites ([facility]) documented in this encounter Results * Erythrocyte sedimentation rate (02/21/2017 10:44 AM CDT) Erythrocyte sedimentation rate 2 < OR = 20 mm/h [facility] - Blood specimen (specimen) 02/21/2017 10:44 AM CDT 02/21/2017 10:44 AM CDT Narrative Resulting Agency Comment Performing Organization Information: ?Site ID: ?Name: [facility] ?Address: [facility] [place] [address] ?Director: Arti Becerra MD Anabell CUMMINGS LAB BLOOD ORDERABLES Final Result Performing Organization Address City/[facility]/ZIP Co de Phone Number [facility] [place] Shahnaz Castillo [place] * CRP (acute phase) (02/21/2017 10:44 AM CDT) Pathologist [facility] C-RP 0.9 <8.0 mg/L [facility] [place] Comment: Please note recent reference range and units of measure changes Blood specimen (specimen) 02/21/2017 10:44 AM CDT 02/21/2017 10:44 AM CDT Narrative Resulting Agency Comment Performing Organization Information: ?Site ID: [place] ?Name: [facility] ?Address: [address] [place] [id number] ?Director: Abelardo Espitia D.O., ABRAM Anabell [facility] BLOOD ORDERABLES Final Result Performing Organization Address [facility] de Phone Number [facility] [place] * (ABNORMAL) Comprehensive metabolic panel (02/21/2017 10:44 AM CDT) Pathologist [facility] Glucose 103(H) 65 - 99 mg/dL [facility] [place] Comment: ? Fasting reference interval For someone without known diabetes, a glucose value between 100 and 125 mg/dL is consistent with prediabetes and should be confirmed with a follow-up test. BUN 15 7 - 25 mg/dL [facility] [place] Creatinine 1.10 0.70 - 1.18 mg/dL [facility] [place] Comment: For patients >49 years of age, the reference limit for Creatinine is approximately 13% higher for people identified as -Moroc[place]. eGFR NON-AFR. SINGAPOREAN 66 > OR = 60 mL/min/1 .73m2 [facility] [place] EGFR 77 > OR = 60 mL/min/1 .73m2 [facility] [place] BUN/creat ratio NOT APPLICABLE 6 - 22 (calc) [facility] [place] Sodium 142 135 - 146 mmol/L [facility] [place] Potassium, pl 4.0 3.5 - 5.3 mmol/L [facility] [place] Chloride 108 98 - 110 mmol/L [facility] [place] CO2 27 20 - 31 mmol/L [facility] [place] Calcium 9.4 8.6 - 10.3 mg/dL [facility] [place] Protein, sr 6.8 6.1 - 8.1 g/dL [facility] [place] Albumin 4.5 3.6 - 5.1 g/dL [facility] [place] Globulin 2.3 1.9 - 3.7 g/dL (calc) [facility] [place] Alb/glob ratio 2.0 1.0 - 2.5 (calc) [facility] [place] Bilirubin, total 0.7 0.2 - 1.2 mg/dL [facility] [place] Alk phos 52 40 - 115 U/L [facility] [place] AST 15 10 - 35 U/L [facility] [place] ALT (SGPT) 21 9 - 46 U/L [facility] [place] Blood specimen (specimen) 02/21/2017 10:44 AM CDT 02/21/2017 10:44 AM CDT Narrative Resulting Agency Comment Performing Organization Information: ?Site ID: [place] ?Name: [facility] ?Address: [facility] [place] [address] ?Director: Abelardo Espitia D.O., MPH us Anabell CUM[facility] BLOOD ORDERABLES Final Result [facility] [place] * (ABNORMAL) CBC with auto differential (02/21/2017 10:44 AM CDT) WBC 5.3 3.8 - 10.8 Thousand/ uL [facility] [place] RBC, POC 4.71 4.20 - 5.80 Million/u L [facility] Hgb 15.7 13.2 - 17.1 g/dL [facility] [place] Hct 45.3 38.5 - 50.0 % [facility] MCV 96.2 80.0 - 100.0 fL [facility] MCH 33.3(H) 27.0 - 33.0 pg [facility] [place] MCHC 34.6 32.0 - 36.0 g/dL [facility] [place] Rdw 14.3 11.0 - 15.0 % [facility] [place] Platelets 194 140 - 400 Thousand/ uL [facility] MPV 8.9 7.5 - 12.5 fL [facility] Neutrophils, abs 3,615 1,500 - 7,800 cells/uL [facility] [place] Neutrophil bands, abs CANCELED 0 - 750 cells/uL [facility] [place] Comment:Result canceled by t he ancillary Metamyelocytes, abs CANCELED 0 cells/uL [facility] [place] Comment:Result canceled by t he ancillary Absolute Myelocytes CANCELED 0 cells/uL [facility] [place] Comment:Result canceled by t he ancillary Promyelocytes, abs CANCELED 0 cells/uL [facility] [place] Comment:Result canceled by t he ancillary Lymphocytes, abs 1,002 850 - 3,900 cells/uL [facility] Monocyte abs 339 200 - 950 cells/uL [facility] Eosinophils, abs 313 15 - 500 cells/uL [facility] Basophils, abs 32 0 - 200 cells/uL [facility] Blast, cell CANCELED 0 cells/uL [facility] [place] Comment:Result canceled by t he ancillary NRBC abs CANCELED 0 cells/uL [facility] [place] Comment:Result canceled by t he ancillary Neutrophils 68.2 % [facility] [place] Neutrophilic bands CANCELED % [facility] [place] Comment:Result canceled by t he ancillary Metamyelocyte pct CANCELED % [facility] [place] Comment:Result canceled by t he ancillary Myelocyte pct CANCELED % [facility] [place] Comment:Result canceled by t he ancillary Promyelocyte pct CANCELED % [facility] [place] Comment:Result canceled by t he ancillary Lymphocyte pct 18.9 % [facility] Reactive lymph CANCELED 0 - 10 % [facility] Comment:Result canceled by t he ancillary Monocytes 6.4 % [facility] Eosinophils 5.9 % [facility] Basophils 0.6 % [facility] Blast pct CANCELED % [facility] [place] Comment:Result canceled by t he ancillary NRBC CANCELED 0 /100 WBC [facility] [place] Comment:Result canceled by t he ancillary Comment CANCELED [facility] [place] Comment:Result canceled by t he ancillary Blood specimen (specimen) 02/21/2017 10:44 AM CDT 02/21/2017 10:44 AM CDT Narrative Resulting Agency Comment Performing Organization Information: ?Site ID: [place] ?Name: [facility] ?Address: [facility] [place] [address] ?Director: Arti Becerra MD Anabell CUMMINGS LAB BLOOD ORDERABLES Final Result [facility] [place] documented in this encounter Visit Diagnoses Diagnosis 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
--- OUTSIDE RECORDS SUMMARY | 2024-06-14 16:52 | XMS_ITS | Encounter Summary ---
Author Organization [facility] Healthcare Address [address] [place] [address] Care Team Providers Care Pasting Machine Offbearer Name Role Phone Criss Blanco MD Unavailable Lashay Downs RN Unavailable Unavailab le Reason for Visit * Reason Comments Initial Consult Back Pain Med Management * Consultation (Routine) - Closed Specialty Diagnoses / Procedures Referred By Contac t Referred To Contact Pain Management Diagnoses Low back pain, unspecified back pain laterality, unspecified chronicity, with sciatica presence unspecified Viraj Romeo PA Phone: tel: fax: Referral ID Status Reason Start Date Expiration Date V isits Requested Visits Authorized [id number] Closed Specialty Services Required 05/02/2017 10/29/2017 1 1 Encounter Details Date Type Department Care Team (Late st Contact Info) Description 06/17/2017 11:30 AM HELPDESK ADMINISTRATOR Office Visit [facility] 2 [facility] A, [address]. [address] [place] [address] Viraj Romeo PA [address] [place] [address] Clive Mackey MD [address] [place] [address] [address] [place] [address] Spinal stenosis of lumbar region, unspecified whether neurogenic claudication present (Primary Dx); Low back pain, unspecified back pain laterality, unspecified chronicity, with sciatica presence unspecified; Lumbar radiculopathy; Lumbar spondylosis Discharge Disposition: Discharge to home [...] on file Legal Sex Male 12:56 AM HELPDESK ADMINISTRATOR Gender Identity Not on file Sexual Orientation Not on file documented as of this encounter Last Filed Vital Signs Vital Sign Reading Time Taken Comments Blood Pressure 140/80 06/17/2017 10:51 AM HELPDESK ADMINISTRATOR Pulse 83 06/17/2017 10:51 AM HELPDESK ADMINISTRATOR Temperature - - Respiratory Rate - - Oxygen Saturation - - Inhaled Oxygen Concentration - - Weight 99.8 kg (220 lb) 06/17/2017 10:51 AM HELPDESK ADMINISTRATOR Height 185.4 cm (6' 1 ) 06/17/2017 10:51 AM HELPDESK ADMINISTRATOR Body Mass Index 29.03 06/17/2017 10:51 AM HELPDESK ADMINISTRATOR documented in this encounter Discharge Disposition Disposition Code Departure Means Destination Discharge to home or self care documented in this encounter Progress Notes * Clive Mackey MD - 06/17/2017 11:30 AM CST New patient H&P CC: Rt LB and leg pain X 1 year. HPI: Sxs come on with the sitting and supine positions. He gets pain in the Rt low back then into his Rtanterior lower leg. He has had Rt ant thigh numbness for years. No leg weakness. No B/B changes . No back surgery. I did injs several years ago for these same Sxs which did help quite a bit. PE: LE EXAM:Neg SLR. Foot dorsiflexion strong and equal. Sensation intact to touch both legs. BACK EXAM:no tenderness to palpation lumbar interspaces nor the sacral sulcus areas ROS: Gen:WD/WN alert and oriented male M.S.:see above Imagin10/2016 L-MRI report:L4-5 disc bulge and facet arthropathy with mild foraminal stenosis Assessment: Rt L4 distribution spinal stenosis type Sxs Plan: Rt L4-5 TF inj series DESK ADMINISTRATOR * Lashay Downs RN - 06/17/2017 11:30 AM CST Initial intake assessment completed. Seen by . To return JUAQUIN to begin TLESI series. Pre-procedure explanation given. DESK ADMINISTRATOR documented in this encounter Plan of Treatment Not on file documented as of this encounter Visit Diagnoses Diagnosis Spinal stenosis of lumbar region, unspecified whether neurogenic claudication present- Primary Low back pain, unspecified back pain laterality, unspecified chronicity, with sciatica presence unspecified Lumbar radiculopathy Thoracic or lumbosacral neuritis or radiculitis, unspecified Lumbar spondylosis Lumbosacral spondylosis without myelopathy documented in this encounter Discontinued Medications Medication Sig Discontinue Reason Start Date End Da te ranitidine (ZANTAC) 300 mg capsule Take 1 capsule by mouth. 06/17/2017 phenazopyridine (PYRIDIUM) 200 mg tablet Take 1 tablet (200 mg total) by mouth 3 (three) times a day. 06/09/2017 06/17/2017 aspirin 81 mg tablet once daily. 06/17/2017 documented as of this encounter Orders Outpatient Referral Count Last Ordered Date st Ordered Date AMB REFERRAL TO PAIN MANAGEMENT 1 8 documented in this encounter Care Teams Pasting Machine Offbearer Relationship Specialty [place] [address] [facility] [address] [place] [address] Rheumatology 02/21/17 Lashay Downs, RN Registered Nurse Pain Management 06/17/17 documented as of this encounter
--- OUTSIDE RECORDS SUMMARY | 2024-06-14 16:52 | XMS_ITS | Encounter Summary ---
Author Organization [facility] Healthcare Address [address] [place] [address] Care Team Providers Care Pbx Wire Chief Name Role Phone Criss Blanco MD Unavailable Lashay Downs RN Unavailable Unavailab le Encounter Details Date Type Department Care Team (Latest Contact Info) Description 06/18/2017 8:29 AM AIR BRUSH OPERATOR - 06/18/2017 9:26 AM AIR BRUSH OPERATOR Hospital Encounter [facility] [address] [place] [address] [place] [address] Clive Mackey MD 2 [facility] [address] [place] [address] Discharge Disposition: Discharge to home or self [...] file Legal Sex Male 12:56 AM AIR BRUSH OPERATOR Gender Identity Not on file Sexual Orientation Not on file documented as of this encounter Last Filed Vital Signs Vital Sign Reading Time Taken Comments Blood Pressure 132/77 06/18/2017 9:01 AM AIR BRUSH OPERATOR Pulse 75 06/18/2017 9:01 AM AIR BRUSH OPERATOR Temperature 36.5 ??C (97.7 ??F) 06/18/2017 9:01 AM CS T Respiratory Rate 16 06/18/2017 9:01 AM AIR BRUSH OPERATOR Oxygen Saturation - - Inhaled Oxygen [...] vital signs they will be discharged home. BRUSH OPERATOR documented in this encounter Miscellaneous Notes * Perioperative Nursing Note - Lashay Downs RN - 06/18/2017 9:20 AM AIR BRUSH OPERATOR Discharge instructions reviewed with pt. Verbalized understanding. To return in 1 week for #2 injection of series. BRUSH OPERATOR * Perioperative Nursing Note - Lashay Downs RN - 06/18/2017 9:02 AM AIR BRUSH OPERATOR Seen by Dr. Mackey pre procedure. BRUSH OPERATOR documented in this encounter Plan of Treatment Not on file documented as of this encounter Procedures Procedure Name Priority Date/Time Associated Diagnosis Comments XR SPINE LUMBAR 2 OR 3 VIEWS IP Routine 06/18/2017 9:23 AM AIR BRUSH OPERATOR INJECTION TRANSFORAMINAL LUMBO/SACRAL 1 LEVEL 06/18/2017 9:11 AM AIR BRUSH OPERATOR Case Notes RT L4-5 TF (1ST) documented in this encounter Results * XR Spine Lumbar 2 or 3 Views (06/18/2017 9:23 AM AIR BRUSH OPERATOR) Narrative [facility] - 06/18/2017 9:24 AM AIR BRUSH OPERATOR The images from this study are not interpreted by Radiology. ??Please refer to the physician's procedure / OR operative note. us Clive Mackey MD IMG XR PROCEDURES Final Re sult [facility] documented in this encounter Visit Diagnoses Not on filedocumented in this encounter Active and Recently Administered Medications Times are shown in AIR BRUSH OPERATOR. PRN Medication Order 06/16/2017 06/17/2017 06/18/2017 dexamethasone (DECADRON) injection (CANCELED) As needed, Starting on Sat06/18/17 at 0915, Intra-Op 0918 (Given - Provid er: Clive Mackey MD - Comment: epidural) iohexol (OMNIPAQUE) 240 mg iodine/mL injection solution (CANCELED) As needed, Starting on Sat06/18/17 at 0915, Intra-Op 0918 (Given - Provid er: Clive Mackey MD) lidocaine (XYLOCAINE) 10 mg/mL (1 %) injection (CANCELED) As needed, Starting on Sat06/18/17 at 0914, [...] (OMNIPAQUE) 240 mg i odine/mL injection solution 06/18/2017 lidocaine (XYLOCAINE) 10 mg/ mL (1 %) injection 06/18/2017 sodium chloride 0.9% 0.9 % solution 06/18 documented in this encounter Care Teams Pbx Wire Chief Relationship Specialty [place] [address] [facility] [address] [place] [address] Rheumatology 02/21/17 Lashay Downs, RN Registered Nurse Pain Management 06/17/17 documented as of this encounter
--- OUTSIDE RECORDS SUMMARY | 2024-06-14 16:52 | XMS_ITS | Encounter Summary ---
Author Organization [facility] Address [address] [facility] [address] [facility] [address] [place] [address] Care Team Providers Care Track Walker Name Role Phone Alberto Stanton Primary Care Provider Criss Robertson MD Unavailable Encounter Details Date Type Department Care Team (Late st Contact Info) Description 03/06/2017 Telephone [facility] [address] [place] [address] Alberto Stanton Social History Tobacco Use Types Packs/Day Years Used Date Smoking Tobacco: Heavy Smoker Comments:Smoking History Pac ks/day: 2 Packs Alcohol Use Standard Drinks/Week Comments No 0 (1 standard drink = 0.6 oz pur e alcohol) Sex and Gender Information Value Date Recorded Sex Assigned at Not on file Legal Sex Male 12:56 AM CLINICAL DATA PROGRAMMER Gender Identity Not on file Sexual Orientation Not on file documented as of this encounter Ordered Prescriptions Prescription Sig Dispense Quantity Refills Last Filled Start Date End Date fluconazole (DIFLUCAN) 150 mg tablet Take 1 tablet (150 mg total) by mouth as directed for 4 days. Take one tab now. Repeat in 7 days if symptoms persist. 4 tablet 03/06/2017 7 documented in this encounter Miscellaneous Notes * Telephone Encounter - Isamar Copeland - 03/06/2017 10:32 AM CDT Pt states he has thrush and wants a med called in to his pharmacy. [facility] documented in this encounter Plan of Treatment Not on file documented as of this encounter Visit Diagnoses Not on filedocumented in this encounter Care Teams Track Walker Relationship Specialty Start Date End Date Alberto Stanton PCP - General 08/31/16 05/01/17 [place] [address] [address] Rheumatology 02/21/17 documented as of this encounter
--- OUTSIDE RECORDS SUMMARY | 2024-06-14 16:52 | XMS_ITS | Encounter Summary ---
Author Organization [facility] Healthcare Address [address] [place] [address] Care Team Providers Care Service Desk Analyst Name Role Phone Criss Blanco MD Unavailable Lashay Downs RN Unavailable Unavailab le Encounter Details Date Type Department Care Team (Late st Contact Info) Description 07/30/2017 9:00 AM BUSINESS OBJECTS ARCHITECT - 07/30/2017 9:15 AM [facility] Surgery [facility] [address] [place] [address] [address] [place] [address] Clive Mackey MD [address] [place] [address] [address] [place] [address] Injection Transforaminal Lumbo/Sacral 1 Level [address] Surgery Details Date/Time Status Location OR Service Patient Class Case Class Case Type Trauma Case? 07/30/2017 9:00 AM Posted [facility] Pain Management Procedure Center [facility] PM 1 Pain Management Outpatient Elective Panel 1 Procedure [facility] Anes Op Region Wound Class Comments Injection Transforaminal Lum barrera/Sacral 1 Level 87577 Right Local Back N/A Surgeon Surgeon Role Service Panel Clive Mackey MD Primary Pain Management 1 Case Notes RT L5-S1 TF (3RD) documented in this encounter Social History Tobacco Use Types Packs/Day Years Used Date Smoking Tobacco: Former Cigarettes 2 30 Smokeless Tobacco: Never Comments:Smoking History Pac ks/day: 2 Packs Alcohol Use Standard Drinks/Week Comments Yes 2 (1 standard drink = 0.6 oz pur e alcohol) Sex and Gender Information Value Date Recorded Sex Assigned at Not on file Legal Sex Male 12:56 AM BUSINESS OBJECTS ARCHITECT Gender Identity Not on file Sexual Orientation Not on file documented as of this encounter Last Filed Vital Signs Vital Sign Reading Time Taken Comments Blood Pressure 108/78 07/30/2017 9:02 AM BUSINESS OBJECTS ARCHITECT Pulse 88 07/30/2017 9:02 AM BUSINESS OBJECTS ARCHITECT Temperature 35.8 ??C (96.5 ??F) 07/30/2017 9:02 AM CS T Respiratory Rate 16 07/30/2017 9:02 AM BUSINESS OBJECTS ARCHITECT Oxygen Saturation 98% 07/30/2017 9:02 AM BUSINESS OBJECTS ARCHITECT Inhaled Oxygen Concentration - - Weight - - Height - - Body Mass Index - - documented in this encounter Discharge Instructions * Discharge Instructions* Rona Mora RN - 07/30/2017 9:29 AM BUSINESS OBJECTS ARCHITECT Return in 3 weeks for 4th inj. NESS OBJECTS ARCHITECT documented in this encounter Medications at Time of Discharge methotrexate 2.5 mg tablet Take 8 tablets [...] (three) times a day as needed for pain Earliest Fill Date: 07/30/17. 90 tablet 07/30/2017 08/29/2017 multivitamin-Ca- iron-minerals 18-0.4 mg tabletIndication s:Mineral Deficiency [...] or self care documented in this encounter Nursing Notes * Rona Mora RN - 07/30/2017 9:09 AM CST Patient will receive pain medication today. NESS OBJECTS ARCHITECT documented in this encounter Miscellaneous Notes * Op Note - Clive Mackey MD - 07/30/2017 9:00 AM CST Lumbar transforaminal injection The patient comes in today for planned injection therapy. He comes in today for the 3d SNRI in thisseries. Patient was brought to the procedure room [...] will be discharged home. ICD 10 code: M49.06 NESS OBJECTS ARCHITECT documented in this encounter Plan of Treatment Not on file documented as of this encounter Procedures Procedure Name Priority Date/Time Associated Diagnosis Comments INJECTION TRANSFORAMINAL LUMBO/SACRAL 1 LEVEL 07/30/2017 9:14 AM BUSINESS OBJECTS ARCHITECT Case Notes RT L5-S1 TF (3RD) documented in this encounter Visit Diagnoses Not on filedocumented in this encounter Administered Medications Inactive Administered Medications - up to 3 most recent administrations Medication Order MAR Action Action Date Dose Rate Site dexamethasone (DECADRON) injection As needed, Starting on Sat07/30/17 at 0918, Intra-Op Given 07/30/2017 9:22 AM BUSINESS OBJECTS ARCHITECT 10 mg Back iohexol (OMNIPAQUE) 240 mg iodine/mL injection solution As needed, Starting on Sat07/30/17 at 0918, Intra-Op Given 07/30/2017 9:22 AM BUSINESS OBJECTS ARCHITECT 4 mL Back sodium chloride 0.9% solution As needed, Starting on Sat07/30/17 at 0918, Intra-Op Given 07/30/2017 9:21 AM BUSINESS OBJECTS ARCHITECT 2 mL Back documented in this encounter Discontinued Medications Medication Sig Discontinue Reason Start Date End Da te cephalexin (KEFLEX) 500 mg capsule Take 500 mg by mouth 4 (four) times a day. Discontinued by another clinician 07/30/2017 methotrexate 2.5 mg tablet take 6 Tablet by ORAL route every week Duplicate order 08/13/2016 07/30/2017 SUMAtriptan (IMITREX) 100 mg tablet take 1 tablet by oral route once with fluids as early as possible after the onset of a migraine attack;may repeat after 2 hours if headache returns, not to exceed 200mgin 24hrs Discontinued by another clinician 04/25/2015 07/30/2017 documented as of this encounter Historical Medications * This list may reflect changes made after this encounter. ranitidine (ZANTAC) 300 mg capsuleIndication s:gastroesophagea l reflux disease Take 300 mg by mouth nightly 04/08/2020 folic acid (FOLVITE) 1 mg tabletIndications :Folate Deficiency Take 1 mg by mouth every morning 05/29/2019 sjdwhjwawfli-Il-e foreign-minerals 18-0.4 mg tabletIndications :Mineral Deficiency Prevention,Vitami n Deficiency Prevention Take 1 tablet by mouth every morning 06/30/2019 added in this encounter Active and Recently Administered Medications Times are shown in BUSINESS OBJECTS ARCHITECT. PRN Medication Order 07/28/2017 07/29/2017 07/30/2017 dexamethasone (DECADRON) injection (CANCELED) As needed, Starting on 07/30/17 at 0918, Intra-Op 0922 (Given - Provid er: Clive Mackey MD - Comment: epidural) iohexol (OMNIPAQUE) 240 mg iodine/mL injection solution (CANCELED) As needed, Starting on 07/30/17 at 0918, Intra-Op 0922 (Given - Provid er: lCive Mackey MD) sodium chloride 0.9% solution (CANCELED) As needed, Starting on 07/30/17 at 0918, Intra-Op 0921 (Given - Provid er: Clive Mackey MD - Comment: epidural) documented in this encounter Care Teams Service Desk Analyst Relationship Specialty [place] [address] [place] [address] Rheumatology 02/21/17 Lashay Downs, GAY Registered Nurse Pain Management 06/17/17 documented as of this encounter
--- OUTSIDE RECORDS SUMMARY | 2024-06-14 16:52 | XMS_ITS | Encounter Summary ---
Author Organization [facility] Healthcare Address [address] [place] [address] Care Team Providers Care Drug Abuse Counselor Name Role Phone Criss Blanco MD Unavailable Reason for Visit * Reason Comments Urinary Frequency Encounter Details Date Type Department Care Team (Late st Contact Info) Description 06/09/2017 1:15 PM SERVOMECHANISM ASSEMBLER - 06/09/2017 5:04 PM SERVOMECHANISM ASSEMBLER Emergency [facility] Emergency Department [address] [place] [address] Uriah Mckinney MD [address] [place] [address] Acute cystitis with hematuria (Primary Dx); Fever, unspecified fever cause; Renal stone Discharge Disposition: Discharge to home or self care Social History Tobacco Use Types Packs/Day Years Used Date Smoking Tobacco: Former Smokeless Tobacco: Never Comments:Smoking History Pac ks/day: 2 Packs Alcohol Use Standard Drinks/Week Comments No 0 (1 standard drink = 0.6 oz pur e alcohol) Sex and Gender Information Value Date Recorded Sex Assigned at Not on file Legal Sex Male 12:56 AM SERVOMECHANISM ASSEMBLER Gender Identity Not on file Sexual Orientation Not on file documented as of this encounter Last Filed Vital Signs Vital Sign Reading Time Taken Comments Blood Pressure 123/78 06/09/2017 2:52 PM SERVOMECHANISM ASSEMBLER Pulse 93 06/09/2017 2:52 PM SERVOMECHANISM ASSEMBLER Temperature 37.7 ??C (99.9 ??F) 06/09/2017 4:45 PM CS T Respiratory Rate 20 06/09/2017 2:52 PM SERVOMECHANISM ASSEMBLER Oxygen Saturation 97% 06/09/2017 4:45 PM SERVOMECHANISM ASSEMBLER Inhaled Oxygen Concentration - - Weight 102.1 kg (225 lb) 06/09/2017 1:27 PM SERVOMECHANISM ASSEMBLER Height 185.4 cm (6' 1 ) 06/09/2017 1:27 PM SERVOMECHANISM ASSEMBLER Body Mass Index 29.69 06/09/2017 1:27 PM SERVOMECHANISM ASSEMBLER documented in this encounter Discharge Instructions * Discharge Instructions* Precious Betancourt NP - 06/09/2017 5:47 PM SERVOMECHANISM ASSEMBLER Use over the counter Tylenol per manufacturers guidelines for relief of pain and fever. Stop Keflex and start Bactrim DS. OMECHANISM ASSEMBLER * Attachments The following attachments cannot be sent through Care Everywhere. * Kidney Stone, Undescended (No Symptoms) ([place] Citizen) * Urinary Tract Infection in Men (AfterCare(R) Instructions(ER/ED)) ([place] Citizen) documented in this encounter Medications at Time [...] mouth daily. 02/06/2019 ranitidine (ZANTAC) 300 mg capsule Take 1 [...] needed for pain. 20 tablet 06/09/2017 10/04/2017 phenazopyridine (PYRIDIUM) 200 mg tablet Take 1 tablet (200 mg total) by mouth 3 (three) times a day. 6 tablet 06/09/2017 06/17/2017 sulfamethoxazole-t rimethoprim (BACTRIM,SEPTRA) 800-160 mg per tablet Take 1 tablet by mouth 2 (two) times a day for 3 days. 6 tablet 06/09/2017 06/12/2017 documented in this encounter Discharge Disposition Disposition Code Departure Means Destination Discharge to home or self care documented in this encounter ED Notes * Precious Betancourt NP - 06/09/2017 2:52 PM CST HPI Chief Complaint Patient presents with ??? Urinary Frequency 71 y.o. year old male with PMHX Past Medical History: No date: Arthritis Comment: arthritis No date: Calculus of kidney Comment: Nephrolithiasis No date: Gastroesophageal reflux disease Comment: acid reflux No date: History of multiple allergies Comment: allergies 1981: HX OTHER MEDICAL Comment: L shoulder 1982: HX OTHER MEDICAL Comment: R shoulder 1986: HX OTHER MEDICAL Comment: R shoulder bone spurs 1963: HX OTHER MEDICAL Comment: ear drum patch 1978: HX OTHER MEDICAL Comment: testicle No date: HX OTHER MEDICAL Comment: Headache, migraine 1981: HX OTHER MEDICAL Comment: Bisept tendonitis 1994: HX OTHER MEDICAL Comment: Pinched Prostate 2001: HX OTHER MEDICAL Comment: kidney stone No date: HX OTHER MEDICAL Comment: hemorroids; Comments: Had done [facility] [place] No date: HX OTHER MEDICAL Comment: bladder infection No date: HX OTHER MEDICAL Comment: kidney stone 1999: Malignant neoplasm of prostate ([facility]/HCC) Comment: prostate; presents to ED with c/o Urinary Frequency, urgency, and pain; fever. Denies chills, nausea, vomiting, diarrhea, SOB, CP, numbness, tingling. Pt states symptoms started 3 days ago. Pt was prescribed Keflex every 8 hours. Pt states symptoms have been getting worse. Pt has been taking Tylenol for fever and pain with little relief. Last took Tylenol this morning. No sick contacts. D enies cough. Patient History Past Medical History: Diagnosis Date [...] OTHER MEDICAL hemorroids; Comments: Had done at [facility] [address] in [place] ??? HX OTHER MEDICAL bladder infection ??? HX OTHER MEDICAL kidney stone ??? Malignant neoplasm of prostate ([facility]) 1998 prostate Past Surgical History: Procedure [...] Use Topics ??? Smoking status: Former Smoker ??? Smokeless tobacco: Never Used Comment: Smoking History Packs/day: 2 Packs ??? Alcohol use No Review of Systems Review of Systems Constitutional: Positive for fever. Negative for chills. HENT: Negative. Negative for ear pain and sore throat. Eyes: Negative. Negative for pain and visual disturbance. Respiratory: Negative. Negative for cough and shortness of breath. Cardiovascular: Negative. Negative for chest pain and palpitations. Gastrointestinal: Negative. Negative for abdominal pain and vomiting. Genitourinary: Positive for urgency. Negative for hematuria. Musculoskeletal: Negative. Negative for arthralgias and back pain. Skin: Negative. Negative for color change and rash. Neurological: Negative. Negative for seizures and syncope. Psychiatric/Behavioral: Negative. All other systems reviewed and are negative. Physical Exam ED Triage Vitals Temp Pulse Resp BP SpO2 06/09/17 1327 06/09/17 1327 06/09/17 1327 06/09/17 1327 06/09/17 1327 38.2 ??C (100.8 ??F) 110 20 121/82 98 % Temp src Heart Rate Source Patient Position BP Location FiO2 (%) 06/09/17 1327 06/09/17 1452 06/09/17 1452 06/09/17 1452 -- Temporal Monitor Lying Left arm Physical Exam Constitutional: He is oriented to person, place, and time. He appears well- developed and well-nourished. No distress. HENT: Head: Normocephalic and atraumatic. Right Ear: External ear normal. Left Ear: External ear normal. Nose: Nose normal. Mouth/Throat: Oropharynx is clear and moist. No oropharyngeal exudate. Eyes: Conjunctivae and EOM are normal. Pupils are equal, round, and reactive to light. Neck: Normal range of motion. Neck supple. Cardiovascular: Normal rate, regular rhythm, normal heart sounds and intact distal pulses. Exam reveals no gallop and no friction rub. No murmur heard. Pulmonary/Chest: Effort normal and breath sounds normal. No respiratory distress. He has no decreased breath sounds. He has no wheezes. He has no rhonchi. He has no rales. He exhibits no tenderness. Abdominal: Soft. Normal appearance and bowel sounds are normal. He exhibits no shifting dullness, no distension, no pulsatile liver, no fluid wave, no abdominal bruit, no ascites, no pulsatile midline mass and no mass. There is no hepatosplenomegaly, splenomegaly or hepatomegaly. There is no tenderness. There is no rigidity, no rebound, no guarding, no CVA tenderness, no tenderness at McBurney's point and negative Collins's sign. No hernia. Hernia confirmed negative in the right inguinal area and confirmed negative in the left inguinal area. Musculoskeletal: Normal range of motion. He exhibits no edema, tenderness or deformity. Neurological: He is alert and oriented to person, place, and time. No cranial nerve deficit. Skin: Skin is warm and dry. Capillary refill takes less than 2 seconds. No rash noted. He is not diaphoretic. No erythema. No pallor. Psychiatric: He has a normal mood and affect. His behavior is normal. Nursing note and vitals reviewed. ED Course & MDM ED Course as of Jun 09 1747 Sun Jun 09, [id number] Discussed case and current plan with Dr. Randolph. He recommends changing antibiotics, prescribing pyridium and pain medication. Discussed lab work and x-ray results with patient. Advised to use Tylenol and Motrin for relief of fever and pain, to follow up with PMD for further evaluation and treatment. Pt verbalized understanding. All questions answered at this time. [GV] 1645 Discussed case and current plan with Dr. Randoplh. He recommends CT with IV contrast. Updated pt on lab results and plan. Pt verbalized understanding. [GV] 1500 Discussed case and current plan with Dr. Mckinney regarding pt. He recommends 1 gm Rocephin IV, lactate and blood cultures. [GV] ED Course User Index [GV] Precious Betancourt NP [facility] Acute cystitis with hematuria Fever, unspecified fever cause Renal stone Precious Betancourt NP 06/09/178 Cosigned by Sotero Randolph Jr., MD at 06/09/2017 7:19 PM SERVOMECHANISM ASSEMBLER OMECHANISM ASSEMBLER OMECHANISM ASSEMBLER Associated attestation - Sotero Randolph Jr., MD - 06/09/2017 7:19 PM SERVOMECHANISM ASSEMBLER ED Attestation Based on the medical record the care appears appropriate. * Radha Thompson RN - 06/09/2017 1:35 PM CST Patient with complaints of urinary frequency, chills and painful urination that started on Saturday, Patient called his PMD and was prescribed cephalexin and started taking it. Patient states he is notfeeling any better. OMECHANISM ASSEMBLER documented in this encounter Plan of Treatment Not on file documented as of this encounter Procedures Procedure Name Priority Date/Time Associated Diagnosis Comments CT ABDOMEN PELVIS W CONTRAST ED 06/09/2017 5:03 PM SERVOMECHANISM ASSEMBLER URINALYSIS AND REFLEX TO MICROSCOPIC AND CULTURE STAT 06/09/2017 3:30 PM SERVOMECHANISM ASSEMBLER URINALYSIS, MICROSCOPIC ONLY STAT 06/09/2017 3:30 PM SERVOMECHANISM ASSEMBLER URINE CULTURE STAT 06/09/2017 3:30 PM SERVOMECHANISM ASSEMBLER BLOOD CULTURE STAT 06/09/2017 3:18 PM SERVOMECHANISM ASSEMBLER EGFR STAT 06/09/2017 3:15 PM SERVOMECHANISM ASSEMBLER DIFFERENTIAL AUTO STAT 06/09/2017 3:1 5 PM SERVOMECHANISM ASSEMBLER CBC WITH AUTO DIFFERENTIAL STAT 06/09/2017 3:15 PM SERVOMECHANISM ASSEMBLER LACTATE, WHOLE BLOOD Routine 06/09/2017 3:15 PM SERVOMECHANISM ASSEMBLER MANUAL DIFFERENTIAL STAT 06/09/2017 3 :15 PM SERVOMECHANISM ASSEMBLER BLOOD CULTURE STAT 06/09/2017 3:15 PM SERVOMECHANISM ASSEMBLER COMPREHENSIVE METABOLIC PANEL STAT 06/09/2017 3:15 PM SERVOMECHANISM ASSEMBLER DISCHARGE LABORATORY CUMULATIVE REPORT 06/09/2017 12:00 AM SERVOMECHANISM ASSEMBLER documented in this encounter Results * CT Abdomen Pelvis W Contrast (06/09/2017 5:03 PM SERVOMECHANISM ASSEMBLER) Anatomical Region Laterality Modality Body N/A Computed Tomogra phy Impressions 06/09/2017 5:27 PM SERVOMECHANISM ASSEMBLER 1. ??URINARY BLADDER WALL THICKENING AND INFLAMMATION SUGGESTIVE OF CYSTITIS. 2. ??MILD LEFT HYDRONEPHROSIS. 3. ??BILATERAL NONOBSTRUCTIVE INTRARENAL CALCULI. 4. ??SIGNIFICANT PROSTATE HYPERTROPHY. Electronically signed by: Brad Patricia M.D. Narrative 06/09/2017 5:[address] ABDOMEN PELVIS W CONTRAST HISTORY: Fever. ??Mid abdominal pain. ??Leukocytosis. TECHNIQUE: Helically acquired axial images were obtained from the dome of the diaphragm to the pubic symphysis. CONTRAST: 100 mL Optiray 320, COMPARISON: 11/29/2016 FINDINGS: Bilateral nonobstructive intrarenal calculi are present. ??Mild left hydronephrosis is present. ??There is no evidence of ureteral calculus. ??Mild urinary bladder wall thickening and inflammation is present which may represent cystitis. ??The prostate gland is significantly enlarged. The liver, spleen, pancreas and adrenals are normal. ??The small and large bowel are nondilated. ??Diffuse vascular calcification is present. There is no evidence of ascites or adenopathy. ??The pelvic contents are otherwise normal. The lung bases are clear. Procedure Note Brad Patricia MD - 06/09/2017 CT ABDOMEN PELVIS W CONTRAST HISTORY: Fever. Mid abdominal pain. Leukocytosis. TECHNIQUE: Helically acquired axial images were obtained from the dome of the diaphragm to the pubic symphysis. CONTRAST: 100 mL Optiray 320, COMPARISON: 11/29/2016 FINDINGS: Bilateral nonobstructive intrarenal calculi are present. Mild left hydronephrosis is present. There is no evidence of ureteral calculus. Mild urinary bladder wall thickening and inflammation is present which may represent cystitis. The prostate gland is significantly enlarged. The liver, spleen, pancreas and adrenals are normal. The small and large bowel are nondilated. Diffuse vascular calcification is present. There is no evidence of ascites or adenopathy. The pelvic contents are otherwise normal. The lung bases are clear. IMPRESSION: 1. URINARY BLADDER WALL THICKENING AND INFLAMMATION SUGGESTIVE OF CYSTITIS. 2. MILD LEFT HYDRONEPHROSIS. 3. BILATERAL NONOBSTRUCTIVE INTRARENAL CALCULI. 4. SIGNIFICANT PROSTATE HYPERTROPHY. Electronically signed by: Brad Patricia M.D. us Precious Betancourt NP IMG CT PROCEDURES Final Res ult * Urine culture (06/09/2017 3:30 PM SERVOMECHANISM ASSEMBLER) Report Final Report: Insignifican t growth based on current clinical standards. ANDRE MORAES (BRE) Comment:Testing performed by : [facility], [address] [facility] [address] Urine 06/09/2017 3:30 PM SERVOMECHANISM ASSEMBLER 06/09/2017 7:20 PM SERVOMECHANISM ASSEMBLER Narrative [facility] (BRE) - 06/10/2017 1:48 PM SERVOMECHANISM ASSEMBLER Uriah Mckinney MD LAB MICROBIOLOGY - GENE RAL ORDERABLES Final Result Performing Organization Address City/[facility]/ZIP Co de Phone Number [facility] (BRE) [address] [facility] [place] [address] * (ABNORMAL) Urinalysis, microscopic only (06/09/2017 3:30 PM SERVOMECHANISM ASSEMBLER) RBC, ur 5-10(A) 0 - 2 [facility] (BRE) WBC, ur >100(A) 0 - 2 [facility] (BRE) Bacteria, ur Negative Negative [facility] (BRE) Hyaline casts, ur 0-2 0 - 2 [facility] (BRE) Epithelial cells, ur 0-2 0 - 2 [facility] (BRE) Urine 06/09/2017 3:30 PM SERVOMECHANISM ASSEMBLER 06/09/2017 3:33 PM SERVOMECHANISM ASSEMBLER Narrative [facility] (BRE) - 06/09/2017 3:59 PM SERVOMECHANISM ASSEMBLER Uriah Mckinney MD LAB URINE ORDERABLES Fi nal Result Performing Organization Address City/[facility]/ZIP Co de Phone Number [facility] (BRE) [address] [facility] [place] [address] * (ABNORMAL) Urinalysis reflex to microscopic and culture (06/09/2017 3:30 PM SERVOMECHANISM ASSEMBLER) Color, ur Dark Yellow Yellow [facility] (BRE) Clarity, ur Cloudy(A) Clear [facility] (BRE) Specific gravity, ur 1.018 1.003 - 1.030 [facility] (BRE) Comment:Normal Ranges: 1.003 -1.030 pH, ur 5.5 4.5 - 8.0 [facility] (BRE) Comment:Normal ranges: 4.5-8 .0 Protein, ur ql 100(A) Negative mg/dL [facility] (BRE) Glucose, ur ql Negative Negative mg/dL [facility] (BRE) Ketones, ur Negative Negative [facility] (BRE) Bilirubin, ur Negative Negative [facility] (BRE) Blood, ur Moderate(A) Negative [facility] (BRE) Urobilinogen, ur 1.0 0.2 - 1.0 [facility] (BRE) Comment:Normal Ranges: 0.2-1 .0 EU/dL Nitrites, ur Negative Negative [facility] (BRE) Leukocyte esterase, ur Moderate(A) Negative [facility] (BRE) Urine 06/09/2017 3:30 PM SERVOMECHANISM ASSEMBLER 06/09/2017 3:33 PM SERVOMECHANISM ASSEMBLER Narrative [facility] (BRE) - 06/09/2017 3:59 PM SERVOMECHANISM ASSEMBLER Uriah Mckinney MD LAB MICROBIOLOGY - GENE [facility] ORDERABLES Final Result [facility] (BRE) [address] [facility] [place] [address] * Blood culture Blood Peripheral (06/09/2017 3:18 PM SERVOMECHANISM ASSEMBLER) Report Final Report: No growth [facility] (BRE) Comment:Testing performed by : [facility], [facility], [place]., [address] Blood specimen (specimen) (Peripheral) 06/09/2017 3:18 PM SERVOMECHANISM ASSEMBLER 06/09/2017 7:51 PM SERVOMECHANISM ASSEMBLER Narrative [facility] (BRE) - 06/15/2017 7:00 AM SERVOMECHANISM ASSEMBLER From a different site than #1. Draw Blood cultures before administration of Antibiotics 1. Blood cultures are incubated for 5 days, and cultures are monitored continuously. ??The first negative report is issued within 24 hours of receipt in the laboratory. ??Positive cultures are called in accordance with the critical call policy. 2. The most important factor for detection microbes [...] can result in false negative blood cultures. 3. Bloodstream infection is more likely to be catheter related if the time to culture positivity of a blood culture drawn through the catheter is at least 2.5 hours faster than the time to positivity of a percutaneous culture of the same volume drawn at the same time, using the same media type. 4. Organism identification and/or antimicrobial susceptibly testing, if reported, [place] [address] 5. For blood cultures with gram-positive cocci, a rapid molecular test for organism identification may be performed using the Poachable Nanosphere Gram Positive Blood Culture Assay. The Nanosphere assay detects microbial DNA in positive blood culture broth via hybridization of target DNA to capture oligonucleotides on a microarray. This assay has been cleared by the [place] Food and Drug Administration and its performance characteristics have been verified by the [facility]. Interpretive data was last revised on October 15, 2016. Precious Betancourt NP LAB MICROBIOLOGY - GENERAL ORDERABLES Final Result ANDRE MORAES (BRE) [address] [facility] [place] [address] * (ABNORMAL) Manual Differential (06/09/2017 3:15 PM SERVOMECHANISM ASSEMBLER) Pathologist [facility] Platelet estimate Automated Count Confirmed ANDRE MORAES (BRE) Giant platelets Present(A) ANDRE MORAES (BRE) RBC morphology Consistent with RBC Indicies ANDRE MORAES (BER) Blood specimen (specimen) 06/09/2017 3:15 PM SERVOMECHANISM ASSEMBLER 06/09/2017 3:29 PM SERVOMECHANISM ASSEMBLER Narrative ANDRE MORAES (BRE) - 06/09/2017 4:28 PM SERVOMECHANISM ASSEMBLER Precious Betancourt NP LAB BLOOD ORDERABLES Final Result Performing Organization Address City/[facility]/ZIP Co de Phone Number ANDRE MORAES (BRE) [address] [facility] [place] [address] * eGFR (06/09/2017 3:15 PM SERVOMECHANISM ASSEMBLER) eGFR >60 mL/min/1.7 3 m2 ANDRE MORAES ([place]) Comment: Interpretive Data Reference Interval Normal ?>/= 90 mL/min/1.73m2 Mildly decreased* ? 60 - 89 mL/min/1.73m2 Mildly to moderately decreased ?45 - 59 mL/min/1.73m2 Moderately to severely decreased ??30 - 44 mL/min/1.73m2 Severely decreased ?15 - 29 mL/min/1.73m2 Kidney Failure ?< 15 ??mL/min/1.73m2 *Relative to young adult level If -Albanian multiply value by 1.16. Estimated glomerular filtration [...] was last reviewed 2015. Blood specimen (specimen) 06/09/2017 3:15 PM SERVOMECHANISM ASSEMBLER 06/09/2017 3:29 PM SERVOMECHANISM ASSEMBLER Narrative ANDRE MORAES (BRE) - 06/09/2017 3:50 PM SERVOMECHANISM ASSEMBLER Precious Betancourt NP LAB BLOOD ORDERABLES Final Result ANDRE MORAES (BRE) [address] [facility] [place] [address] * (ABNORMAL) Differential, auto (06/09/2017 3:15 PM SERVOMECHANISM ASSEMBLER) Neutrophil pct 91.5(H) 44.0 - 80.0 % [facility] (BRE) Imm gran pct 0.9 0.0 - 1.0 % [facility] (BRE) Lymphocyte pct 3.2(L) 13.0 - 44.0 % [facility] (BRE) Monocyte pct 3.9 2.0 - 11.0 % [facility] (BRE) Eosinophil pct 0.3 0.0 - 6.0 % [facility] (BRE) Basophil pct 0.2 0.0 - 3.0 % [facility] (BRE) Neutrophil abs 10.68(H) 1.60 - 7.00 K/cumm [facility] (BRE) Imm gran abs 0.10 0.00 - 0.20 K/cumm [facility] (BRE) Lymphocyte abs 0.37(L) 0.50 - 4.30 K/cumm [facility] (BRE) Monocyte abs 0.45 0.10 - 1.00 K/cumm [facility] (BRE) Eosinophil abs 0.03 0.00 - 0.60 K/cumm [facility] (BRE) Basophil abs 0.02 0.00 - 0.30 K/cumm [facility] (BRE) Blood specimen (specimen) 06/09/2017 3:15 PM SERVOMECHANISM ASSEMBLER 06/09/2017 3:29 PM SERVOMECHANISM ASSEMBLER Narrative [facility] (BRE) - 06/09/2017 4:28 PM SERVOMECHANISM ASSEMBLER us Precious Betancourt NP LAB BLOOD ORDERABLES Final Result [facility] (BRE) [address] [facility] Department of Laboratories [place], [place] [id number] * Lactate, whole blood (06/09/2017 3:15 PM SERVOMECHANISM ASSEMBLER) Lactate, bld 1.7 0.5 - 2.2 mmol/L [facility] (BRE) Blood specimen (specimen) 06/09/2017 3:15 PM SERVOMECHANISM ASSEMBLER 06/09/2017 3:29 PM SERVOMECHANISM ASSEMBLER Narrative ANDRE MORAES (BRE) - 06/09/2017 3:32 PM SERVOMECHANISM ASSEMBLER Precious Betancourt NP LAB BLOOD ORDERABLES Final Result ANDRE MORAES (BRE) [address] [facility] [place] [address] * Blood culture Blood Peripheral (06/09/2017 3:15 PM SERVOMECHANISM ASSEMBLER) Report Final Report: No growth ANDRE MORAES (BRE) Comment:Testing performed by : [place]., [address] Blood specimen (specimen) (Peripheral) 06/09/2017 3:15 PM SERVOMECHANISM ASSEMBLER 06/09/2017 7:51 PM SERVOMECHANISM ASSEMBLER Narrative ANDRE MORAES (BRE) - 06/15/2017 7:00 AM SERVOMECHANISM ASSEMBLER Draw Blood cultures before administration of Antibiotics 1. Blood cultures are incubated for 5 days, and cultures are monitored continuously. ??The first negative report is issued within 24 hours of receipt in the laboratory. ??Positive cultures are called in accordance with the critical call policy. 2. The most important factor for detection microbes [...] can result in false negative blood cultures. 3. Bloodstream infection is more likely to be catheter related if the time to culture positivity of a blood culture drawn through the catheter is at least 2.5 hours faster than the time to positivity of a percutaneous culture of the same volume drawn at the same time, using the same media type. 4. Organism identification and/or antimicrobial susceptibly testing, if reported, [place] [address] 5. For blood cultures with gram-positive cocci, a rapid molecular test for organism identification may be performed using the Jump[employer] Nanosphere Gram Positive Blood Culture Assay. The Nanosphere assay detects microbial DNA in positive blood culture broth via hybridization of target DNA to capture oligonucleotides on a microarray. This assay has been cleared by the [place] Food and Drug Administration and its performance characteristics have been verified by the [facility]. Interpretive data was last revised on October 15, 2016. Precious Betancourt NP LAB MICROBIOLOGY - GENERAL ORDERABLES Final Result [facility] (BRE) [address] [facility] [place] [address] * (ABNORMAL) Comprehensive metabolic panel (06/09/2017 3:15 PM SERVOMECHANISM ASSEMBLER) Sodium 135 135 - 145 mmol/L [facility] (BRE) Potassium, pl 3.8 3.3 - 4.9 mmol/L [facility] (BRE) CO2 24 22 - 32 mmol/L [facility] (BRE) BUN 22 8 - 25 mg/dL [facility] (BRE) Glucose 153 70 - 199 mg/dL [facility] (BRE) [...] interpretive data was last revised 2017. Creatinine 1.07 0.80 - 1.30 mg/dL [facility] (BRE) Calcium 9.0 8.5 - 10.3 mg/dL [facility] (BRE) Chloride 96(L) 97 - 110 mmol/L [facility] (BRE) Albumin 3.3(L) 3.5 - 5.0 g/dL [facility] (BRE) AST 21 10 - 50 Units/L [facility] (BRE) ALT 19 7 - 55 Units/L [facility] (BRE) Alk phos 58 40 - 130 Units/L [facility] (BRE) Bilirubin, total 0.9 0.1 - 1.2 mg/dL [facility] (BRE) Protein, pl 6.6 6.5 - 8.5 g/dL [facility] (BRE) Anion gap 15 2 - 15 mmol/L [facility] (BRE) Blood specimen (specimen) 06/09/2017 3:15 PM SERVOMECHANISM ASSEMBLER 06/09/2017 3:29 PM SERVOMECHANISM ASSEMBLER Narrative [facility] (BRE) - 06/09/2017 3:50 PM SERVOMECHANISM ASSEMBLER us Precious Betancourt NP LAB BLOOD ORDERABLES Final Result [facility] (BRE) [address] [facility] [place] [address] * (ABNORMAL) CBC with auto differential (06/09/2017 3:15 PM SERVOMECHANISM ASSEMBLER) WBC 11.65(H) 3.80 - 9.80 K/cumm [facility] (BRE) RBC 4.32(L) 4.50 - 5.70 M/cumm [facility] (BRE) Hgb 13.9 13.8 - 17.2 g/dL [facility] (BRE) Hct 38.9(L) 40.7 - 50.3 % [facility] (BRE) MCV 90.0 80.0 - 100.0 fL [facility] (BRE) MCH 32.2 26.7 - 33.7 pg [facility] ([facility]) MCHC 35.7 32.7 - 36.0 g/dL [facility] ([facility]) RDW CV 14.0 11.5 - 14.6 % [facility] ([facility]) RDW SD 45.8 38.0 - 56.6 fL [facility] ([place]) Plt 102(L) 140 - 440 K/cumm [facility] ([facility]) MPV 10.2 8.0 - 12.0 fL [facility] ([facility]) NRBC 0.0 0.0 - 0.0 % [facility] ([facility]) NRBC abs 0.00 0.00 - 0.00 K/cumm [facility] ([place]) Blood specimen (specimen) 06/09/2017 3:15 PM SERVOMECHANISM ASSEMBLER 06/09/2017 3:29 PM SERVOMECHANISM ASSEMBLER Narrative [facility] ([place]) - 06/09/2017 4:27 PM SERVOMECHANISM ASSEMBLER Precious Betancourt NP LAB BLOOD ORDERABLES Final Result [facility] ([place]) [address] [facility] [place] [address] * DISCHARGE LABORATORY CUMULATIVE REPORT (06/09/2017 12:00 AM SERVOMECHANISM ASSEMBLER) Narrative 06/09/2017 12:00 AM SERVOMECHANISM ASSEMBLER Ordered by an unspecified provider. Historical Provider LAB BLOOD ORDERABLES Mariaa l Result documented in this encounter Visit Diagnoses Diagnosis Acute cystitis with hematuria- Primary Fever, unspecified fever cause Renal stone Calculus of kidney documented in this encounter Administered Medications Inactive Administered Medications - up to 3 most recent administrations Medication Order MAR Action Action Date Dose Rate Site acetaminophen (TYLENOL) tablet 1,000 mg 1,000 mg, oral, Once, On 06/09/17 at 1645, For 1 dose Given 06/09/2017 4:54 PM SERVOMECHANISM ASSEMBLER 1,000 mg cefTRIAXone (ROCEPHIN) IV syringe 1,000 mg 1,000 mg, intravenous, Administer over 4 Minutes, Once, On 06/09/17 at 1500, For 1 dose, Indications: Urinary Tract/Genitourinary InfectionIndications:Urinary Tract/Genitourinary Infection Given 06/09/2017 4:48 PM SERVOMECHANISM ASSEMBLER 1,000 mg ibuprofen (ADVIL,MOTRIN) tablet 800 mg 800 mg, oral, Once, On 06/09/17 at 1500, For 1 dose Given 06/09/2017 3:38 PM SERVOMECHANISM ASSEMBLER 800 mg ioversol intravenous syringe 100 mL 100 mL, intravenous, Once in imaging, per order, Starting on 06/09/17 at 1704, For 1 dose Given 06/09/2017 5:09 PM SERVOMECHANISM ASSEMBLER 100 mL documented in this encounter Discontinued Medications Medication Sig Discontinue Reason Start Date End Da te traMADol (ULTRAM) 50 mg tablet Take 1 tablet (50 mg total) by mouth every 4 (four) hours as needed for pain. 05/16/2017 06/09/2017 documented as of this encounter Historical Medications * This list may reflect changes made after this encounter. cephalexin (KEFLEX) 500 mg capsule Take 500 mg by mouth 4 (four) times a day. 07/30/2017 omeprazole (PriLOSEC) 20 mg capsule Take 20 mg by mouth daily. 02/06/2019 biotin 10,000 mcg capsuleIndication s:supplement Take 1 capsule by mouth every morning 06/30/2019 added in this encounter Active and Recently Administered Medications Times are shown in SERVOMECHANISM ASSEMBLER. Scheduled Medication Order 06/07/2017 06/08/2017 06/09/2017 acetaminophen (TYLENOL) tablet 1,000 mg (COMPLETED) 1,000 mg, oral, Once, On 06/09/17 at 1645, For 1 dose 1654 (Given - Provid er: Holly Pan RN) cefTRIAXone (ROCEPHIN) IV syringe 1,000 mg (COMPLETED) 1,000 mg, intravenous, Administer over 4 Minutes, Once, On 06/09/17 at 1500, For 1 dose, Indications: Urinary Tract/Genitourinary Infection 1648 (Given - Provid er: Holly Pan RN) ibuprofen (ADVIL,MOTRIN) tablet 800 mg (COMPLETED) 800 mg, oral, Once, On 06/09/17 at 1500, For 1 dose 1538 (Given - Provid er: Holly Pan RN) PRN Medication Order 06/07/2017 06/08/2017 06/09/2017 ioversol intravenous syringe 100 mL (COMPLETED) 100 mL, intravenous, Once in imaging, per order, Starting on 06/09/17 at 1704, For 1 dose 1709 (Given - Provid er: Larissa Stanley, R-RT) documented in this encounter Orders IV Count Last Ordered Date First Orde red Date INSERT PERIPHERAL IV 1 06/09/2017 documented in this encounter Care Teams Drug Abuse Counselor Relationship Specialty [place] [id number] [facility] [address] [place] [address] Rheumatology 02/21/17 documented as of this encounter
--- OUTSIDE RECORDS SUMMARY | 2024-06-14 16:52 | XMS_ITS | Encounter Summary ---
Author Organization [facility] Healthcare Address [address] [place] [address] Care Team Providers Care Early Childhood Associate Teacher Name Role Phone Criss Blanco MD Unavailable Lashay Downs RN Unavailable Unavailab le Encounter Details Date Type Department Care Team (Latest Contact Info) Description 07/30/2017 8:46 AM GRAPPLE OPERATOR - 07/30/2017 9:31 AM GRAPPLE OPERATOR Hospital Encounter [facility] [address] [place] [address] [place] [address] Clive Mackey MD 2 [facility] [address] [place] [address] Discharge Disposition: Discharge to home or self [...] on file Legal Sex Male 12:56 AM GRAPPLE OPERATOR Gender Identity Not on file Sexual Orientation Not on file documented as of this encounter Last Filed Vital Signs Vital Sign Reading Time Taken Comments Blood Pressure 122/75 07/30/2017 9:27 AM GRAPPLE OPERATOR Pulse 76 07/30/2017 9:27 AM GRAPPLE OPERATOR Temperature 35.8 ??C (96.5 ??F) 07/30/2017 9:02 AM CS T Respiratory Rate 15 07/30/2017 9:27 AM GRAPPLE OPERATOR Oxygen Saturation 98% 07/30/2017 9:27 AM GRAPPLE OPERATOR Inhaled Oxygen Concentration - - Weight - - Height - - Body Mass Index - - documented in this encounter Discharge Instructions * Discharge Instructions* Rona Mora RN - 07/30/2017 9:29 AM GRAPPLE OPERATOR Return in 3 weeks for 4th inj. PLE OPERATOR documented in this encounter Medications at [...] CST Patient will receive pain medication today. PLE OPERATOR documented in this encounter Miscellaneous Notes [...] be discharged home. ICD 10 code: M49.06 PLE OPERATOR documented in this encounter Plan of Treatment Not on file documented as of this encounter Procedures Procedure Name Priority Date/Time Associated Diagnosis Comments INJECTION TRANSFORAMINAL LUMBO/SACRAL 1 LEVEL 07/30/2017 9:14 AM GRAPPLE OPERATOR Case Notes RT L5-S1 TF (3RD) documented [...] 1 mg by mouth every morning 05/29/2019 [id number]-Ax-[id number] foreign-minerals 18-0.4 mg tabletIndications :Mineral Deficiency Prevention,Vitami n Deficiency Prevention Take 1 tablet by mouth every morning 06/30/2019 added in this encounter Active and Recently Administered Medications Times are shown in GRAPPLE OPERATOR. PRN Medication Order 07/28/2017 07/29/2017 07/30/2017 dexamethasone (DECADRON) injection (CANCELED) As needed, Starting on e 07/30/17 at 0918, Intra-Op 0922 (Given - Provid er: Clive Mackey MD - Comment: epidural) iohexol (OMNIPAQUE) 240 mg iodine/mL injection solution (CANCELED) As needed, Starting on Tu07/30/17 at 0918, Intra-Op 0922 (Given - Provid er: Clive Mackey MD) sodium chloride 0.9% solution (CANCELED) As needed, Starting on Sat07/30/17 at 0918, Intra-Op 0921 (Given - Provid er: Clive Mackey MD - Comment: epidural) documented in this encounter Orders Medications Ordered That Quinn ht Not Have Been Administered Count Last Ordered Date First Ordered Date dexamethasone (DECADRON) injection 1 2017 iohexol (OMNIPAQUE) 240 mg i odine/mL injection solution 1 07/30/2017 sodium chloride 0.9% solution 1 07/30/2017 documented in this encounter Care Teams Early Childhood Associate Teacher Relationship Specialty [place] [id number] [address] Rheumatology 02/21/17 Lashay Downs, GAY Registered Nurse Pain Management 06/17/17 documented as of this encounter
--- OUTSIDE RECORDS SUMMARY | 2024-06-14 16:52 | XMS_ITS | Encounter Summary ---
Author Organization [facility] Healthcare Address [address] [place] [address] Care Team Providers Care Knitting Machine Operator Automatic Name Role Phone Criss Blanco MD Unavailable Lashay Downs RN Unavailable Unavailab le Encounter Details Date Type Department Care Team (Late st Contact Info) Description 07/16/2017 9:00 AM COMBUSTION ANALYST - 07/16/2017 9:15 AM RUST Surgery [facility] [address] [place] [address] [address] [place] [address] Clive Mackey MD [address] [place] [address] [address] [place] [address] Injection Transforaminal Lumbo/Sacral 1 Level [address] Surgery Details Date/Time Status Location OR Service Patient Class Case Class Case Type Trauma Case? 07/16/2017 9:00 AM Posted [facility] Pain Management Procedure Center [facility] PM 1 Pain Management Outpatient Elective Panel 1 Procedure LRB Anes Op Region Wound Class Comments Injection Transforaminal Lum barrera/Sacral 1 Level 52259 Right Local Back Class I - Clean Surgeon Surgeon Role Service Panel Clive Mackey MD Primary Pain Management 1 Case Notes RT L5-S1 TF (2ND) documented in this encounter Social [...] on file Legal Sex Male 12:56 AM COMBUSTION ANALYST Gender Identity Not on file Sexual Orientation Not on file documented as of this encounter Last Filed Vital Signs Vital Sign Reading Time Taken Comments Blood Pressure 113/75 07/16/2017 9:03 AM COMBUSTION ANALYST Pulse 78 07/16/2017 9:03 AM COMBUSTION ANALYST Temperature 36.7 ??C (98 ??F) 07/16/2017 9:03 AM COMBUSTION ANALYST Respiratory Rate 16 07/16/2017 9:03 AM COMBUSTION ANALYST Oxygen Saturation - - Inhaled Oxygen Concentration [...] Lashay Downs RN - 07/16/2017 9:23 AM COMBUSTION ANALYST Discharge instructions reviewed with pt. Verbalized understanding. Hard copy given to pt. To returnin 2 weeks for #3 injection of series. USTION ANALYST * Perioperative Nursing Note - Lashay Downs RN - 07/16/2017 9:07 AM COMBUSTION ANALYST Seen by Dr. Mackey pre procedure. Consent form reviewed and signed by pt. USTION ANALYST * Op Note - Clive Mackey MD [...] be discharged home. ICD 10 code: M54.16 USTION ANALYST documented in this encounter Plan of Treatment Not on file documented as of this encounter Procedures Procedure Name Priority Date/Time Associated Diagnosis Comments XR SPINE LUMBAR 2 OR 3 VIEWS IP Routine 07/16/2017 9:17 AM COMBUSTION ANALYST INJECTION TRANSFORAMINAL LUMBO/SACRAL 1 LEVEL 07/16/2017 9:08 AM COMBUSTION ANALYST Case Notes RT L5-S1 TF (2ND) documented in this encounter Results * XR Spine Lumbar 2 or 3 Views (07/16/2017 9:17 AM COMBUSTION ANALYST) Narrative [facility] - 07/16/2017 9:18 AM COMBUSTION ANALYST The images from this study are not [...] dexamethasone (DECADRON) injection As needed, Starting on Sat07/16/17 at 0913, Intra-Op Given 07/16/2017 9:16 AM COMBUSTION ANALYST 10 mg Back iohexol (OMNIPAQUE) 240 mg iodine/mL injection solution As needed, Starting on Sat07/16/17 at 0912, Intra-Op Given 07/16/2017 9:15 AM COMBUSTION ANALYST 2 mL Back lidocaine (XYLOCAINE) 10 mg/mL (1 %) preservative free injection As needed, Starting on Sat07/16/17 at 0912, Intra-Op Given 07/16/2017 9:12 AM COMBUSTION ANALYST 2 mL Back sodium chloride 0.9% solution As needed, Starting on 07/16/17 at 0912, Intra-Op Given 07/16/2017 9:14 AM COMBUSTION ANALYST 2 mL Back documented in this encounter Active and Recently Administered Medications Times are shown in COMBUSTION ANALYST. PRN Medication Order 07/14/2017 07/15/2017 07/16/2017 dexamethasone [...] epidural) documented in this encounter Care Teams Knitting Machine Operator Automatic Relationship Specialty [place] [address] [facility] [address] [place] [address] Rheumatology 02/21/17 Lashay Downs, GAY Registered Nurse Pain Management 06/17/17 documented as of this encounter
--- OUTSIDE RECORDS SUMMARY | 2024-06-14 16:52 | XMS_ITS | Encounter Summary ---
Author Organization [facility] Healthcare Address [address] [place] [address] Care Team Providers Care Reproduction Technician Name Role Phone Criss Blanco MD Unavailable Lashay Downs RN Unavailable Unavailab Duke Goodwin RN Unavailable Unavailabl e Encounter Details Date Type Department Care Team (Latest Contact Info) Description 09/17/2017 8:56 AM CDT - 09/17/2017 9:21 AM CDT Hospital Encounter [facility] [address] [place] [address] [place] [address] Clive Mackey MD [address] [place] [address] Discharge Disposition: Discharge to home or self [...] on file Legal Sex Male 12:56 AM RAIL BONDER Gender Identity Not on file Sexual Orientation Not on file documented as of this encounter Last Filed Vital Signs Vital Sign Reading Time Taken Comments Blood Pressure 136/70 09/17/2017 9:16 AM CDT Pulse 73 09/17/2017 9:16 AM CDT Temperature 36.4 ??C (97.5 ??F) 09/17/2017 9:05 AM CD T Respiratory Rate 16 09/17/2017 9:16 AM CDT Oxygen Saturation 96% 09/17/2017 9:16 AM CDT Inhaled Oxygen Concentration - - Weight - - Height - - Body Mass Index - - documented in this encounter Medications at Time of Discharge biotin 10,000 mcg capsuleIndication s:supplement Take 1 capsule by mouth every morning 06/30/2019 folic acid (FOLVITE) 1 mg tabletIndications :Folate Deficiency Take 1 mg by mouth every morning 05/29/2019 ygdkrncibwys-Bs-p foreign-minerals 18-0.4 mg tabletIndications :Mineral Deficiency Prevention,Vitami [...] 1 LEVEL PAIN PUMP TRIAL W IMAGING [id number] 09/17/2017 9:06 AM CDT Case Notes L5-S1 [...] 0.9% solution (CANCELED) As needed, Starting on 09/17/17 at 0909, Intra-Op 0911 (Given - Provid er: Clive Mackey MD - Comment: epidural) documented in this encounter Orders Medications Ordered That Quinn ht Not Have Been Administered Count Last Ordered Date First Ordered Date dexamethasone (DECADRON) injection 1 2017 iohexol (OMNIPAQUE) 240 mg i odine/mL injection solution 1 09/17/2017 sodium chloride 0.9% solution 1 09/17/2017 documented in this encounter Care Teams Reproduction Technician Relationship Specialty [place] [address] [facility] [address] [place] [address] Rheumatology 02/21/17 Lashay Downs, RN Registered Nurse Pain Management 06/17/17 Duke Do, RN Registered Nurse 09/09/17 documented as of this encounter
--- OUTSIDE RECORDS SUMMARY | 2024-06-14 16:52 | XMS_ITS | Encounter Summary ---
Author Organization [facility] Healthcare Address [address] [place] [address] Care Team Providers Care Costing Analyst Name Role Phone Criss Blanco MD Unavailable Lashay Downs RN Unavailable Unavailab le Encounter Details Date Type Department Care Team (Late st Contact Info) Description 07/16/2017 9:05 AM FIRE EXTINGUISHER CHARGER Ancillary Procedure [facility] [address] [place] [address] Clive Mackey MD 2 [facility] [address] [place] [address] Social History Tobacco Use Types Packs/Day Years Used Date Smoking Tobacco: Former Cigarettes 2 30 Smokeless Tobacco: Never Comments:Smoking History Pac ks/day: 2 Packs Alcohol Use Standard Drinks/Week Comments Yes 2 (1 standard drink = 0.6 oz pur e alcohol) Sex and Gender Information Value Date Recorded Sex Assigned at Not on file Legal Sex Male 12:56 AM FIRE EXTINGUISHER CHARGER Gender Identity Not on file Sexual Orientation Not on file documented as of this encounter Plan of Treatment Not on file documented as of this encounter Procedures Procedure Name Priority Date/Time Associated Diagnosis Comments XR SPINE LUMBAR 2 OR 3 VIEWS IP Routine 07/16/2017 9:17 AM FIRE EXTINGUISHER CHARGER documented in this encounter Results * XR Spine Lumbar 2 or 3 Views (07/16/2017 9:17 AM FIRE EXTINGUISHER CHARGER) Narrative [facility] - 07/16/2017 9:18 AM FIRE EXTINGUISHER CHARGER The images from this study are not interpreted by Radiology. ??Please refer to the physician's procedure / OR operative note. us Cilve Mackey MD IMG XR PROCEDURES Final Re sult [facility] documented in this encounter Visit Diagnoses Not on filedocumented in this encounter Care Teams Costing Analyst Relationship Specialty [place] [address] [facility] [address] [place] [address] Rheumatology 02/21/17 Lashay Downs, RN Registered Nurse Pain Management 06/17/17 documented as of this encounter
--- OUTSIDE RECORDS SUMMARY | 2024-06-14 16:52 | XMS_ITS | Encounter Summary ---
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) (Primary Dx); intermodal customer service use of drug Social History Tobacco Use Types Packs/Day Years Used Date Smoking Tobacco: Heavy Smoker Comments:Smoking History Pac ks/day: 2 Packs Alcohol Use Standard Drinks/Week Comments No 0 (1 standard drink = 0.6 oz pur e alcohol) Sex and Gender Information Value Date Recorded Sex Assigned at Not on file 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 Subjective/Objective Patient ID: Samuel Sanchez is a 71 y.o. male. Chief Complaint No chief complaint on file. Patient states that his joints are not too bad. Hands have been a little more bothersome with the damp weather. Denies any SE from the MTX. Review of Systems Constitutional: Negative for activity change, fatigue and fever. HENT: Negative for mouth sores. Eyes: Negative for pain. Respiratory: Negative for shortness of breath and wheezing. Cardiovascular: Negative for chest pain. Gastrointestinal: Negative for abdominal pain. Musculoskeletal: Positive for arthralgias. Negative for joint swelling. Skin: Negative for rash. Physical Exam Constitutional: He is oriented to person, place, and time. He appears well- developed and well-nourished. HENT: Head: Normocephalic. Neck: Neck supple. Cardiovascular: Normal rate, regular rhythm and normal heart sounds. Pulmonary/Chest: Effort normal and breath sounds normal. Musculoskeletal: See CDAI. Neurological: He is alert and oriented to person, place, and time. Skin: Skin is warm and dry. Psychiatric: He has a normal mood and affect. Assessment/Plan Diagnoses and all orders for this visit: 1. 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 Increased the MTX at the last Ov. Will continue MtX at this time. He does not want prednisone at this time. Orders: - CBC without differential; Future - Comprehensive metabolic panel; Future - CRP (acute phase); Future - Erythrocyte sedimentation rate; Future 2. detention use of drug Assessment & Plan: Will continue to monitor the patient with routine labs. Cosigned by Criss Blanco MD at 11/22/2016 9:09 AM CDT * Anabell Ward PA - 11/21/2016 9:00 AM CDT Labs stable. documented in this encounter Miscellaneous Notes * Assessment & Plan Note - Anabell Ward PA - 11/21/2016 9:17 AM CDTAssociated Problem(s): detention use of drug Will continue to monitor the patient with routine labs. 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 Increased the MTX at the last Ov. Will continue MtX at this time. He does not want prednisone at this time. documented in this encounter Plan of Treatment Not on file documented as of this encounter Procedures Procedure Name Priority Date/Time Associated Diagnosis Comments ERYTHROCYTE SEDIMENTATION RATE Routine 11/21/2016 9:29 AM CDT Seropositive rheumatoid arthritis of multiple sites ([facility]/HCC) CBC WITHOUT DIFFERENTIAL Routine 11/21/2016 9:29 AM CDT Seropositive rheumatoid arthritis of multiple sites ([facility]) CRP (ACUTE PHASE) Routine 11/21/2016 9:2 9 AM CDT Seropositive rheumatoid arthritis of multiple sites ([facility]) COMPREHENSIVE METABOLIC PANEL Routine 11/21/2016 9:29 AM CDT Seropositive rheumatoid arthritis of multiple sites ([facility]) documented in this encounter Results * Erythrocyte sedimentation rate (11/21/2016 9:29 AM CDT) Erythrocyte sedimentation rate 2 < OR = 20 mm/h [facility] - Blood specimen (specimen) 11/21/2016 9:29 AM CDT 11/21/2016 9:30 AM CDT Narrative [facility] - 11/22/2016 11:00 AM CDT FASTING:NO Resulting Agency Comment Performing Organization Information: ?Site ID: ?Name: [facility] ?Address: [facility] [place] [address] ?Director: Arti Becerra MD Anabell [facility] BLOOD ORDERABLES Final Result Performing Organization Address [facility] Co de Phone Number [facility] [place], [place] * CRP (acute phase) (11/21/2016 9:29 AM CDT) C-RP <0.10 <0.80 mg/dL [facility] [place] Comment: Please be advised that patients taking Carboxypenicillins may exhibit falsely decreased C-Reactive Protein levels due to an analytical interference in this assay. Blood specimen (specimen) 11/21/2016 9:29 AM CDT 11/21/2016 9:30 AM CDT Narrative [facility] - 11/22/2016 11:00 AM CDT FASTING:NO Resulting Agency Comment Performing Organization Information: ?Site ID: [id number] ?Name: [facility] ?Address: [address] [place] [id number] ?Director: Abelardo Espitia D.O. MPH [facility] BLOOD ORDERABLES Final Result Performing Organization Address [facility] Co de Phone Number [facility] [place] GAY [place] * Comprehensive metabolic panel (11/21/2016 9:29 AM CDT) Glucose 86 65 - 99 mg/dL [facility] [place] Comment: ? Fasting reference interval BUN 22 7 - 25 mg/dL [facility] [place] Creatinine 1.13 0.70 - 1.18 mg/dL [facility] [place] Comment: For patients >49 years of age, the reference limit for Creatinine is approximately 13% higher for people identified as -Maur[place]. eGFR NON-AFR. GREEK 64 > OR = 60 mL/min/1 .73m2 [facility] [place] EGFR 74 > OR = 60 mL/min/1 .73m2 [facility] [place] BUN/creat ratio NOT APPLICABLE 6 - 22 (calc) [facility] [place] Sodium 141 135 - 146 mmol/L [facility] [place] Potassium, pl 4.0 3.5 - 5.3 mmol/L [facility] [place] Chloride 106 98 - 110 mmol/L [facility] [place] CO2 27 20 - 31 mmol/L [facility] [place] Calcium 9.8 8.6 - 10.3 mg/dL [facility] [place] Protein, sr 6.9 6.1 - 8.1 g/dL [facility] [place] Albumin 4.6 3.6 - 5.1 g/dL [facility] [place] Globulin 2.3 1.9 - 3.7 g/dL (calc) [facility] [place] Alb/glob ratio 2.0 1.0 - 2.5 (calc) [facility] [place] Bilirubin, total 0.9 0.2 - 1.2 mg/dL [facility] [place] Alk phos 49 40 - 115 U/L [facility] [place] AST 14 10 - 35 U/L [facility] [place] ALT (SGPT) 20 9 - 46 U/L [facility] [place] Blood specimen (specimen) 11/21/2016 9:29 AM CDT 11/21/2016 9:30 AM CDT Narrative [facility] - 11/22/2016 11:00 AM CDT FASTING:NO Resulting Agency Comment Performing Organization Information: ?Site ID: [id number] ?Name: [facility] ?Address: [address] [phone] ?Director: Abelardo Espitia D.O., MPH [facility] BLOOD ORDERABLES Final Result [facility] [place] * CBC without differential (11/21/2016 9:29 AM CDT) WBC 5.9 3.8 - 10.8 Thousand/uL [facility] [place] RBC, POC 5.03 4.20 - 5.80 Million/uL [facility] [place] Hgb 16.3 13.2 - 17.1 g/dL [facility] [place] Hct 48.1 38.5 - 50.0 % [facility] [place] MCV 95.4 80.0 - 100.0 fL [facility] [place] MCH 32.4 27.0 - 33.0 pg [facility] MCHC 33.9 32.0 - 36.0 g/dL [facility] [place] Rdw 14.9 11.0 - 15.0 % [facility] [place] Platelets 175 140 - 400 Thousand/uL [facility] - MPV 9.0 7.5 - 12.5 fL [facility] - Blood specimen (specimen) 11/21/2016 9:29 AM CDT 11/21/2016 9:30 AM CDT Narrative [facility] - 11/22/2016 11:00 AM CDT FASTING:NO Resulting Agency Comment Performing Organization Information: ?Site ID: ?Name: [facility] ?Address: [facility] [address] [place] [address] ?Director: Arti Becerra MD Anabell [facility] BLOOD ORDERABLES Final Result [facility] [place] documented in this encounter Visit Diagnoses Diagnosis 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) (HCC)- Primary intermodal customer service use of drug documented in this encounter Discontinued Medications Medication Sig Discontinue Reason Start Date End Da te folic acid (FOLVITE) 1 mg tablet take 1 tablet by oral route every day 08/13/2016 11/21/2016 omeprazole (PriLOSEC) 20 mg capsule TAKE 1 CAPSULE (20MG) BY ORAL ROUTE EVERY DAY BEFORE A MEAL 11/03/2009 11/21/2016 SUMAtriptan (IMITREX) 100 mg tablet take 1 tablet by oral route once with fluids as early as possible after the onset of a migraine attack;may repeat after 2 hours if headache returns, not to exceed 200mgin 24hrs 04/25/2015 11/21/2016 naltrexone (DEPADE) 50 mg tablet take 1 tablet by oral route every day 08/13/2016 11/21/2016 raNITIdine (ZANTAC) 300 mg tablet take 1 tablet by oral route every day at bedtime 08/01/2015 11/21/2016 cyclobenzaprine (FLEXERIL) 10 mg tablet take 1 tablet by ORAL route 3 times every day 08/13/2016 11/21/2016 ipratropium (ATROVENT) 0.06 % nasal spray spray 2 spray by intranasal route every day in each nostril 09/26/2015 11/21/2016 methylPREDNISolone (MEDROL, RADHA,) 4 mg tablet take by Oral route as directed on package 05/15/2012 11/21/2016 montelukast (SINGULAIR) 10 mg tablet take 1 tablet by ORAL route every day prn 09/26/2015 11/21/2016 omeprazole (PriLOSEC) 20 mg capsule TAKE 1 CAPSULE (20MG) BY ORAL ROUTE EVERY DAY BEFORE A MEAL 11/03/2009 11/21/2016 documented as of this encounter Historical Medications * This list may reflect changes made after this encounter. ranitidine (ZANTAC) 300 mg capsule Take 1 capsule by mouth. 06/17/2017 aspirin 81 mg tablet once daily. 06/17/2017 added in this encounter Care Teams Bulk Fluids Handler Relationship Specialty Start Date End Date Alberto Stanton: [phone] PCP - General 08/31/16 05/01/17 documented as of this encounter
--- OUTSIDE RECORDS SUMMARY | 2024-06-14 16:52 | XMS_ITS | Encounter Summary ---
Author Organization [facility] Healthcare Address [address] [place] [address] Care Team Providers Care Beater Worker Helper Name Role Phone Criss Blanco MD Unavailable Lashay Downs RN Unavailable Unavailab le Encounter Details Date Type Department Care Team (Late st Contact Info) Description 07/04/2017 1:10 PM MARKET SUPERINTENDENT Lab [address] [phone] Alissa Fuentes MD [address] [facility] [address] [place], [place] [id number] Seropositive rheumatoid arthritis of multiple sites ([facility]); networks software consultant use of drug Discharge Disposition: Discharge to home or self [...] on file 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 Gender Identity Not on file Sexual Orientation Not on file documented as of this encounter Discharge Disposition Disposition Code Departure Means Destination Discharge to home or self care documented in this encounter Plan of Treatment Not on file documented as of this encounter Procedures Procedure Name Priority Date/Time Associated Diagnosis Comments EGFR Routine 07/04/2017 1:10 PM MARKET SUPERINTENDENT networks software consultant use of drug SJOGREN'S SYNDROME A/B ANTIBODIES Routine 07/04/2017 1:10 PM MARKET SUPERINTENDENT 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) HEPATITIS C ANTIBODY Routine 07/04/2017 1:10 PM MARKET SUPERINTENDENT 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) CYCLIC CITRUL PEPTIDE ANTIBODY, IGG Routine 07/04/2017 1:10 PM MARKET SUPERINTENDENT 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) HEPATITIS B SURFACE ANTIGEN Routine 07/04/2017 1:10 PM MARKET SUPERINTENDENT 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) ERYTHROCYTE SEDIMENTATION RATE Routine 07/04/2017 1:10 PM MARKET SUPERINTENDENT 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) CBC WITHOUT DIFFERENTIAL Routine 07/04/2017 1:10 PM MARKET SUPERINTENDENT prison use of drug RHEUMATOID FACTOR Routine 07/04/2017 1:1 0 PM MARKET SUPERINTENDENT 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) CRP (ACUTE PHASE) Routine 07/04/2017 1:1 0 PM MARKET SUPERINTENDENT 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) PATRICK SCREEN Routine 07/04/2017 1:10 PM MARKET SUPERINTENDENT 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) COMPREHENSIVE METABOLIC PANEL Routine 07/04/2017 1:10 PM MARKET SUPERINTENDENT prison use of drug DISCHARGE LABORATORY CUMULATIVE REPORT 07/04/2017 12:00 AM MARKET SUPERINTENDENT documented in this encounter Results * eGFR (07/04/2017 1:10 PM MARKET SUPERINTENDENT) [facility] eGFR 64 mL/min/1.7 3 m2 ANDRE YEUNG Comment: Interpretive Data Reference Interval Normal ?>/= 90 mL/min/1.73m2 Mildly decreased* ? 60 - 89 mL/min/1.73m2 Mildly to moderately decreased ?45 - 59 mL/min/1.73m2 Moderately to severely decreased ??30 - 44 mL/min/1.73m2 Severely decreased ?15 - 29 mL/min/1.73m2 Kidney Failure ?< 15 ??mL/min/1.73m2 *Relative to young adult level If -Cymraes multiply value by 1.16. Estimated glomerular filtration [...] Current interpretive data was last reviewed 2015. Testing performed by: [facility], [address] [place] [address] [place] [address] Blood specimen (specimen) 07/04/2017 1:10 PM MARKET SUPERINTENDENT 07/04/2017 1:10 PM MARKET SUPERINTENDENT Narrative ANDRE - 07/04/2017 2:25 PM MARKET SUPERINTENDENT us Alissa Fuentes MD LAB BLOOD ORDERABLES Final Resul t [facility] [address] [place] [address] * Sjogren's syndrome A/B antibodies (07/04/2017 1:10 PM MARKET SUPERINTENDENT) SS-A/Ro Ab, IgG <0.2 <1.0 (Negative) Units ANDRE SS-B/La Ab, IgG <0.2 <1.0 (Negative) Units ANDRE YEUNG Comment: Test Performed by: [address] [address] Blood specimen (specimen) 07/04/2017 1:10 PM MARKET SUPERINTENDENT 07/04/2017 3:43 PM MARKET SUPERINTENDENT Narrative ANDRE - 07/06/2017 2:03 PM MARKET SUPERINTENDENT us Alissa Fuentes MD LAB BLOOD ORDERABLES Final Resul t Performing Organization Address [facility] de Phone Number EMANUELSTEFANIA YEUNG [address] [facility] [place] [address] * Erythrocyte sedimentation rate (07/04/2017 1:10 PM MARKET SUPERINTENDENT) Erythrocyte sedimentation rate 4 0 - 20 mm/H [facility] Comment:Testing performed by : [facility], [place] [address] Blood specimen (specimen) 07/04/2017 1:10 PM MARKET SUPERINTENDENT 07/04/2017 1:10 PM MARKET SUPERINTENDENT Narrative ANDRE - 07/04/2017 2:51 PM MARKET SUPERINTENDENT us Alissa Fuentes MD LAB BLOOD ORDERABLES Final Resul t Performing Organization Address [facility] de Phone Number EMANUELSTEFANIA YEUNG [address] [place] [address] * (ABNORMAL) Rheumatoid factor (07/04/2017 1:10 PM MARKET SUPERINTENDENT) Rheumatoid factor, quant 873(H) 0 - 19 IUnits/mL ANDRE Blood specimen (specimen) 07/04/2017 1:10 PM MARKET SUPERINTENDENT 07/04/2017 3:47 PM MARKET SUPERINTENDENT Narrative ANDRE - 07/05/2017 8:38 AM MARKET SUPERINTENDENT Result Jessa Fuentes MD LAB BLOOD ORDERABLES Final Resul t Performing Organization Address [facility] de Phone Number EMANUELSTEFANIA [address] [facility] [place] [address] * Hepatitis C antibody (07/04/2017 1:10 PM MARKET SUPERINTENDENT) Pathologist [facility] Hep C Ab Negative Negative [facility] Blood specimen (specimen) 07/04/2017 1:10 PM MARKET SUPERINTENDENT 07/04/2017 3:47 PM MARKET SUPERINTENDENT Narrative [facility] - 07/04/2017 5:32 PM MARKET SUPERINTENDENT us Alissa Fuentes MD LAB MICROBIOLOGY - GENERAL ORDER DIEGO Final Result Performing Organization Address [facility] Co de Phone Number [facility] [address] [place] [address] * Hepatitis B surface antigen (07/04/2017 1:10 PM MARKET SUPERINTENDENT) [facility] HepBsAg Negative Negative [facility] Blood specimen (specimen) 07/04/2017 1:10 PM MARKET SUPERINTENDENT 07/04/2017 3:47 PM MARKET SUPERINTENDENT Narrative [facility] - 07/04/2017 5:32 PM MARKET SUPERINTENDENT Result Jessa Fuentes MD LAB MICROBIOLOGY - GENERAL ORDER DIEGO Final Result Performing Organization Address [facility] de Phone Number [facility] [address] [place] [address] * Cyclic citrul peptide antibody, IgG (07/04/2017 1:10 PM MARKET SUPERINTENDENT) [facility] CCP Ab <0.5 <=2.9 units/mL ANDRE Comment: Interpretive data Negative: <3 units/mL Positive: > or equal to 3 units/mL Current interpretive data was last revised on 2016. Testing performed by: [facility], [address] [place]., [address] Blood specimen (specimen) 07/04/2017 1:10 PM MARKET SUPERINTENDENT 07/05/2017 8:48 AM MARKET SUPERINTENDENT Narrative [facility] - 07/05/2017 12:01 PM MARKET SUPERINTENDENT Result eJssa Fuentes MD LAB BLOOD ORDERABLES Final Resul t Performing Organization Address [facility] Co de Phone Number [facility] [address] [place] [address] * CRP (acute phase) (07/04/2017 1:10 PM MARKET SUPERINTENDENT) CRP 1.4 0.2 - 9.9 mg/L [facility] Blood specimen (specimen) 07/04/2017 1:10 PM MARKET SUPERINTENDENT 07/04/2017 3:49 PM MARKET SUPERINTENDENT Narrative [facility] - 07/04/2017 4:20 PM MARKET SUPERINTENDENT Alissa Fuentes MD LAB BLOOD ORDERABLES Final Resul t [facility] [address] [place] [address] * Comprehensive metabolic panel (07/04/2017 1:10 PM MARKET SUPERINTENDENT) Sodium 139 135 - 145 mmol/L [facility] Comment:Testing performed by : [address], [place] [address] Potassium, pl 3.8 3.5 - 5.1 mmol/L [facility] Comment:Testing performed by : [address], [place] [address] CO2 28 22 - 32 mmol/L [facility] Comment:Testing performed by : [address], [place] [address] BUN 17 8 - 24 mg/dL [facility] Comment:Testing performed by : [address], [place] [address] Glucose 99 70 - 199 mg/dL [facility] Comment: Interpretive Data Fasting [...] Current interpretive data was last revised 2017. Testing performed by: [address], [place] [address] Creatinine 1.13 0.70 - 1.40 mg/dL [facility] Comment:Testing performed by : [address], [place] [address] Calcium 9.3 8.4 - 10.5 mg/dL [facility] Comment:Testing performed by : [facility] [place] [address] Chloride 103 100 - 114 mmol/L [facility] Comment:Testing performed by : [address] [address] Albumin 4.4 3.2 - 4.8 g/dL [facility] Comment:Testing performed by : [facility] [address] AST 19 7 - 40 Units/L [facility] Comment:Testing performed by : [facility] [address] ALT 20 5 - 50 Units/L [facility] Comment:Testing performed by : [address], [place] [address] Alk phos 50 30 - 110 Units/L [facility] Comment:Testing performed by : [facility] [address] Bilirubin, total 1.13 0.10 - 1.30 mg/dL [facility] Comment:Testing performed by : [address] [address] Protein, pl 7.0 6.0 - 8.3 g/dL [facility] Comment:Testing performed by : [facility] [address] [place] [address] Anion gap 12 8 - 16 mmol/L [facility] Comment:Testing performed by : [facility] [address] [address] [address] Blood specimen (specimen) 07/04/2017 1:10 PM MARKET SUPERINTENDENT 07/04/2017 1:10 PM MARKET SUPERINTENDENT Narrative ANDRE - 07/04/2017 4:20 PM MARKET SUPERINTENDENT us Alissa Fuentes MD LAB BLOOD ORDERABLES Edited Resu lt - Final ANDRE [address] [place] [address] * (ABNORMAL) CBC without differential (07/04/2017 1:10 PM MARKET SUPERINTENDENT) WBC 5.93 3.80 - 9.90 K/cumm [facility] Comment:Testing performed by : [facility] [address] [place], [place] [address] RBC 4.62 4.30 - 5.80 M/cumm [facility] Comment:Testing performed by : [facility], [facility] [address] [place], [place] [address] Hgb 14.8 13.0 - 17.5 g/dL [facility] Comment:Testing performed by : [facility] [address] [place], [place] [address] Hct 43.6 38.9 - 50.3 % [facility] Comment:Testing performed by : [facility], [facility] [address] [place], [place] [address] MCV 94.4 81.3 - 96.4 fL [facility] Comment:Testing performed by : [facility] [address] [place], [place] [address] MCH 32.0 27.1 - 33.3 pg [facility] Comment:Testing performed by : [facility] [address] [place], [place] [address] MCHC 33.9 32.3 - 35.7 g/dL [facility] Comment:Testing performed by : [place] [address] [place] [address] RDW CV 14.2 11.1 - 14.9 % [facility] Comment:Testing performed by : [place] [address] [address] [place], [place] [address] RDW SD 48.5(H) 35.7 - 48.1 fL [facility] Comment:Testing performed by : [facility] [address] [place], [place] [address] NRBC 0.0 0.0 - 0.2 % [facility] Comment:Testing performed by : [place] [address] [place] [address] NRBC abs 0.00 0.00 - 0.01 K/cumm [facility] Comment:Testing performed by : [place] [address] [place] [address] Plt 144(L) 150 - 400 K/cumm [facility] Comment:Testing performed by : [facility] [address] [address] [place], [place] [address] MPV 10.1 9.1 - 12.3 fL [facility] Comment:Testing performed by : [facility] [place] [address] Blood specimen (specimen) 07/04/2017 1:10 PM MARKET SUPERINTENDENT 07/04/2017 1:10 PM MARKET SUPERINTENDENT Narrative [facility] - 07/04/2017 1:43 PM MARKET SUPERINTENDENT Alissa Fuentes MD LAB BLOOD ORDERABLES Final Resul t Performing Organization Address City/[facility]/ZIP Co de Phone Number ANDRE [address] [place] [address] * PATRICK screen (07/04/2017 1:10 PM MARKET SUPERINTENDENT) PATRICK Negative Negative [facility] Blood specimen (specimen) 07/04/2017 1:10 PM MARKET SUPERINTENDENT 07/04/2017 3:47 PM MARKET SUPERINTENDENT Narrative [facility] - 07/08/2017 12:20 PM MARKET SUPERINTENDENT Alissa Fuentes MD LAB BLOOD ORDERABLES Final Resul t Performing Organization Address [facility] de Phone Number [facility] [address] [place] [address] * DISCHARGE LABORATORY CUMULATIVE REPORT (07/04/2017 12:00 AM MARKET SUPERINTENDENT) Narrative 07/04/2017 12:00 AM MARKET SUPERINTENDENT Ordered by an unspecified provider. 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
--- OUTSIDE RECORDS SUMMARY | 2024-06-14 16:52 | XMS_ITS | Encounter Summary ---
Author Organization [facility] Address 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 Social History Tobacco Use Types Packs/Day Years Used Date Smoking Tobacco: Former Cigarettes 2 30 Smokeless Tobacco: Never Comments:Smoking History Pac ks/day: 2 Packs Alcohol Use Standard Drinks/Week Comments Yes 2 (1 standard drink = 0.6 oz pur e alcohol) Sex and Gender Information Value Date Recorded Sex Assigned at Not on file Legal Sex Male 12:56 AM SOIL CHEMIST Gender Identity Not on file Sexual Orientation Not on file documented as of this encounter Last Filed Vital Signs Vital Sign Reading Time Taken Comments Blood Pressure 120/70 07/04/2017 12:02 PM SOIL CHEMIST Pulse 68 07/04/2017 12:02 PM SOIL CHEMIST Temperature 37 ??C (98.6 ??F) 07/04/2017 12:02 PM SOIL CHEMIST Respiratory Rate 20 07/04/2017 12:02 PM SOIL CHEMIST Oxygen Saturation 98% 07/04/2017 12:02 PM SOIL CHEMIST Inhaled Oxygen Concentration - - Weight 103 kg (227 lb) 07/04/2017 12:02 PM SOIL CHEMIST Height 185.4 cm (6' 1 ) 07/04/2017 12:02 PM SOIL CHEMIST Body Mass Index 29.95 07/04/2017 12:02 PM SOIL CHEMIST documented in this encounter Ordered Prescriptions Prescription Sig Dispense Quantity Refills Last Filled Start Date End Date methotrexate 2.5 mg tablet Take 8 tablets (20 mg total) by mouth once a week. 40 tablet 3 07/04/2017 8 documented in this encounter Progress Notes * Alissa Fuentes MD - 07/04/2017 10:45 AM CST [facility] at [facility]- Rheumatology [address] [place], [place] [address] [address] Subjective/Objective Patient ID: Samuel Sanchez is a 72 y.o. male. Chief Complaint Joint pain HPI He was diagnosed with rheumatoid arthritis over a year ago by Dr. Blanco.. He has been on MTX since diagnosis. Current dosage is 20mg/wk. He ran out last week. Previous ultrasound of hands showed erosions . Arthritis has been stable on methotrexate. He denied joint pain today. Hands ache when weather is cold. Am stiffness: a few minutes. He denied joint swelling. Toes bother him sometimes. HOME MEDICATIONS : methotrexate 2.5 mg tablet biotin 10,000 mcg capsule cephalexin (KEFLEX) 500 mg capsule folic acid (FOLVITE) 1 mg tablet methotrexate 2.5 mg tablet omeprazole (PriLOSEC) 20 mg capsule SUMAtriptan (IMITREX) 100 mg tablet tamsulosin (FLOMAX) 0.4 mg capsule,extended release 24hr tiZANidine (ZANAFLEX) 2 mg tablet traMADol (ULTRAM) 50 mg tablet Allergies Allergen Reactions ??? Hydrocodone Itching Reaction: itching, Review of Systems Constitution: Negative for fever, malaise/fatigue, weight gain and weight loss. HENT: No oral ulcers, +dry mouth Cardiovascular: Negative for chest pain. Respiratory: Positive for cough. Negative for shortness of breath. Endocrine: Negative for cold intolerance and heat intolerance. Hematologic/Lymphatic: Negative for bleeding problem. Bruises/bleeds easily. Skin: Negative for rash. No photosensitivity, no Raynaud's Musculoskeletal: Negative for joint pain and joint swelling. Gastrointestinal: Positive for heartburn. Negative for hematochezia. Genitourinary: Negative for dysuria. Neurological: Positive for numbness. Psychiatric/Behavioral: Positive for depression. The patient has insomnia and is nervous/anxious. Allergic/Immunologic: Positive for environmental allergies. Vitals: 07/04/17 1202 BP: 120/70 Pulse: 68 Resp: 20 Temp: 37 ??C (98.6 ??F) SpO2: 98% Physical Exam Constitutional: He is oriented to person, place, and time. He appears well- developed and well-nourished. No distress. HENT: Head: Normocephalic and atraumatic. Mouth/Throat: Oropharynx is clear and moist. Eyes: Conjunctivae are normal. Pupils are equal, round, and reactive to light. Neck: Normal range of motion. Cardiovascular: Normal rate, regular rhythm and normal heart sounds. Pulmonary/Chest: Effort normal and breath sounds normal. He has no rales. Abdominal: Soft. Musculoskeletal: He exhibits no tenderness. No synovitis Lymphadenopathy: He has no cervical adenopathy. Neurological: He is alert and oriented to person, place, and time. Skin: Skin is warm and dry. No rash noted. Psychiatric: He has a normal mood and affect. LABS Lab Results Component Value Date WBC 11.65 (H) 06/09/2017 HGB 13.9 06/09/2017 HCT 38.9 (L) 06/09/2017 MCV 90.0 06/09/2017 Chemistry Component Value Date/Time SODIUM 135 06/09/2017 1515 SODIUM 142 02/21/2017 1044 POTASSIUM 3.8 06/09/2017 1515 POTASSIUM 4.0 02/21/2017 1044 CHLORIDE 96 (L) 06/09/2017 1515 CHLORIDE 108 02/21/2017 1044 CO2 24 06/09/2017 1515 CO2 27 02/21/2017 1044 BUNSER 22 06/09/2017 1515 BUNSER 15 02/21/2017 1044 CREATININE 1.07 06/09/2017 1515 CREATININE 1.10 02/21/2017 1044 GLUCOSE 153 06/09/2017 1515 GLUCOSE 103 (H) 02/21/2017 1044 Component Value Date/Time CALCIUM 9.0 06/09/2017 1515 CALCIUM 9.4 02/21/2017 1044 ALKPHOS 58 06/09/2017 1515 ALKPHOS 52 02/21/2017 1044 AST 21 06/09/2017 1515 AST 15 02/21/2017 1044 ALT 19 06/09/2017 1515 ALT 21 02/21/2017 1044 BILITOT 0.9 06/09/2017 1515 BILITOT 0.7 02/21/2017 1044 Assessment/Plan Diagnoses and all orders for this visit: 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 Alissa Fuentes MD CHEMIST documented in this encounter Plan of Treatment Not on file documented as of this encounter Results * Sjogren's syndrome A/B antibodies (07/04/2017 1:10 PM SOIL CHEMIST) Pathologist [facility] SS-A/Ro Ab, IgG <0.2 <1.0 (Negative) Units [facility] SS-B/La Ab, IgG <0.2 <1.0 (Negative) Units ANDRE Comment: Test Performed by: [facility] - [address] [address] Blood specimen (specimen) 07/04/2017 1:10 PM SOIL CHEMIST 07/04/2017 3:43 PM SOIL CHEMIST Narrative ANDRE - 07/06/2017 2:03 PM SOIL CHEMIST Alissa Fuentes MD LAB BLOOD ORDERABLES Final Resul t Performing Organization Address [facility] de Phone Number [facility] [address] [facility] [place] [address] * Erythrocyte sedimentation rate (07/04/2017 1:10 PM SOIL CHEMIST) Pathologist [facility] Erythrocyte sedimentation rate 4 0 - 20 mm/H [facility] Comment:Testing performed by : [facility], [address], [place] [address] Blood specimen (specimen) 07/04/2017 1:10 PM SOIL CHEMIST 07/04/2017 1:10 PM SOIL CHEMIST Narrative [facility] - 07/04/2017 2:51 PM SOIL CHEMIST us Alissa Fuentes MD LAB BLOOD ORDERABLES Final Resul t Performing Organization Address [facility] de Phone Number [facility] [address] [place] [address] * (ABNORMAL) Rheumatoid factor (07/04/2017 1:10 PM SOIL CHEMIST) [facility] Rheumatoid factor, quant 873(H) 0 - 19 IUnits/mL [facility] Blood specimen (specimen) 07/04/2017 1:10 PM SOIL CHEMIST 07/04/2017 3:47 PM SOIL CHEMIST Narrative [facility] - 07/05/2017 8:38 AM SOIL CHEMIST us Alissa Fuentes MD LAB BLOOD ORDERABLES Final Resul t Performing Organization Address [facility] Co de Phone Number [facility] [address] [place] [address] * Hepatitis C antibody (07/04/2017 1:10 PM SOIL CHEMIST) Pathologist [facility] Hep C Ab Negative Negative [facility] Blood specimen (specimen) 07/04/2017 1:10 PM SOIL CHEMIST 07/04/2017 3:47 PM SOIL CHEMIST Narrative [facility] - 07/04/2017 5:32 PM SOIL CHEMIST us Alissa Fuentes MD LAB MICROBIOLOGY - GENERAL ORDER DIEGO Final Result Performing Organization Address [facility] Co de Phone Number [facility] [address] [place] [address] * Hepatitis B surface antigen (07/04/2017 1:10 PM SOIL CHEMIST) Pathologist [facility] HepBsAg Negative Negative [facility] Blood specimen (specimen) 07/04/2017 1:10 PM SOIL CHEMIST 07/04/2017 3:47 PM SOIL CHEMIST Narrative [facility] - 07/04/2017 5:32 PM SOIL CHEMIST us Alissa Fuentes MD LAB MICROBIOLOGY - GENERAL ORDER DIEGO Final Result Performing Organization Address [facility] de Phone Number [facility] [address] [place] [address] * Cyclic citrul peptide antibody, IgG (07/04/2017 1:10 PM SOIL CHEMIST) Pathologist [facility] CCP Ab <0.5 <=2.9 units/mL [facility] Comment: Interpretive data Negative: <3 units/mL Positive: > or equal to 3 units/mL Current interpretive data was last revised on 2016. Testing performed by: [facility], [address] [place]., [address] Blood specimen (specimen) 07/04/2017 1:10 PM SOIL CHEMIST 07/05/2017 8:48 AM SOIL CHEMIST Narrative [facility] - 07/05/2017 12:01 PM SOIL CHEMIST us Alissa Fuentes MD LAB BLOOD ORDERABLES Final Resul t Performing Organization Address [facility] Co de Phone Number [facility] [address] [place] [address] * CRP (acute phase) (07/04/2017 1:10 PM SOIL CHEMIST) [facility] CRP 1.4 0.2 - 9.9 mg/L [facility] Blood specimen (specimen) 07/04/2017 1:10 PM SOIL CHEMIST 07/04/2017 3:49 PM SOIL CHEMIST Narrative [facility] - 07/04/2017 4:20 PM SOIL CHEMIST us Alissa Fuentes MD LAB BLOOD ORDERABLES Final Resul t [facility] [address] Department [place] [address] * Comprehensive metabolic panel (07/04/2017 1:10 PM SOIL CHEMIST) Sodium 139 135 - 145 mmol/L [facility] Comment:Testing performed by : [facility] [address], [place] [address] Potassium, pl 3.8 3.5 - 5.1 mmol/L [facility] Comment:Testing performed by : [facility] [address], [place] [address] CO2 28 22 - 32 mmol/L [facility] Comment:Testing performed by : [facility] [address], [place] [address] BUN 17 8 - 24 mg/dL [facility] Comment:Testing performed by : [facility] [address], [place] [address] Glucose 99 70 - 199 mg/dL [facility] Comment: Interpretive Data Fasting glucose >/= 126 [...] was last revised 2017. Testing performed by: [facility] [address], [place] [address] Creatinine 1.13 0.70 - 1.40 mg/dL [facility] Comment:Testing performed by : [facility] [address], [place] [address] Calcium 9.3 8.4 - 10.5 mg/dL [facility] Comment:Testing performed by : [facility] [address], [place] [address] Chloride 103 100 - 114 mmol/L [facility] Comment:Testing performed by : [facility], [facility] [place] [address] Albumin 4.4 3.2 - 4.8 g/dL [facility] Comment:Testing performed by : [facility] [place] [address] AST 19 7 - 40 Units/L [facility] Comment:Testing performed by : [facility] [place] [address] ALT 20 5 - 50 Units/L [facility] Comment:Testing performed by : [facility] [place] [address] Alk phos 50 30 - 110 Units/L [facility] Comment:Testing performed by : [facility] [place] [address] Bilirubin, total 1.13 0.10 - 1.30 mg/dL [facility] Comment:Testing performed by : [facility] [place] [address] Protein, pl 7.0 6.0 - 8.3 g/dL [facility] Comment:Testing performed by : [facility] [place] [address] Anion gap 12 8 - 16 mmol/L [facility] Comment:Testing performed by : [facility] [place] [address] Blood specimen (specimen) 07/04/2017 1:10 PM SOIL CHEMIST 07/04/2017 1:10 PM SOIL CHEMIST Narrative [facility] - 07/04/2017 4:20 PM SOIL CHEMIST us Alissa Fuentes MD LAB BLOOD ORDERABLES Edited Resu lt - Final [facility] [address] Department [place] [address] * (ABNORMAL) CBC without differential (07/04/2017 1:10 PM SOIL CHEMIST) WBC 5.93 3.80 - 9.90 K/cumm [facility] Comment:Testing performed by : [facility] [place] [address] RBC 4.62 4.30 - 5.80 M/cumm [facility] Comment:Testing performed by : [facility], [facility] [place] [address] Hgb 14.8 13.0 - 17.5 g/dL [facility] Comment:Testing performed by : [facility], [facility] [place] [address] Hct 43.6 38.9 - 50.3 % [facility] Comment:Testing performed by : [facility] [address] [place], [place] [address] MCV 94.4 81.3 - 96.4 fL [facility] Comment:Testing performed by : [facility] [address] [place], [place] [address] MCH 32.0 27.1 - 33.3 pg [facility] Comment:Testing performed by : [facility] [address] [place] [address] MCHC 33.9 32.3 - 35.7 g/dL [facility] Comment:Testing performed by : [facility] [address] [place] [address] RDW CV 14.2 11.1 - 14.9 % [facility] Comment:Testing performed by : [facility] [address] [place], [place] [address] RDW SD 48.5(H) 35.7 - 48.1 fL [facility] Comment:Testing performed by : [facility] [address] [place] [address] NRBC 0.0 0.0 - 0.2 % [facility] Comment:Testing performed by : [facility] [address] [place] [address] NRBC abs 0.00 0.00 - 0.01 K/cumm [facility] Comment:Testing performed by : [facility] [address] [place] [address] Plt 144(L) 150 - 400 K/cumm [facility] Comment:Testing performed by : [facility] [address] [place] [address] MPV 10.1 9.1 - 12.3 fL [facility] Comment:Testing performed by : [facility] [address] [place] [address] Blood specimen (specimen) 07/04/2017 1:10 PM SOIL CHEMIST 07/04/2017 1:10 PM SOIL CHEMIST Narrative [facility] - 07/04/2017 1:43 PM SOIL CHEMIST us Alissa Fuentes MD LAB BLOOD ORDERABLES Final Resul t Performing Organization Address City/[facility]/ZIP Co de Phone Number ANDRE YEUNG [address] [address] [facility] [place] [address] * PATRICK screen (07/04/2017 1:10 PM SOIL CHEMIST) PATRICK Negative Negative [facility] Blood specimen (specimen) 07/04/2017 1:10 PM SOIL CHEMIST 07/04/2017 3:47 PM SOIL CHEMIST Narrative [facility] - 07/08/2017 12:20 PM SOIL CHEMIST us Alissa Fuentes MD LAB BLOOD ORDERABLES Final Resul t Performing Organization Address [facility] Co de Phone Number ANDRE YEUNG [address] [place] [address] documented in this encounter Visit Diagnoses Diagnosis 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
--- OUTSIDE RECORDS SUMMARY | 2024-06-14 16:53 | XMS_ITS | Encounter Summary ---
Author Organization [facility] Address [address] [place] [address] Care Team Providers Care Data Security Analyst Name Role Phone Alberto Stanton Primary Care Provider Unavailabl e Encounter Details Date Type Department Care Team (Latest Contact Info) Description 05/21/2012 7:07 AM CLOTH BALER - 05/21/2012 11:59 PM CLOTH BALER Hospital Encounter [facility]INCONV Alberto Stanton Lumbosacral spondylosis without myelopathy; Spinal stenosis of lumbar region without neurogenic claudication Social History Tobacco Use Types Packs/Day Years Used Date Smoking Tobacco: Heavy Smoker Comments:Smoking History Pac ks/day: 2 Packs Alcohol Use Standard Drinks/Week Comments Yes 0 (1 standard drink = 0.6 oz pur e alcohol) Sex and Gender Information Value Date Recorded Sex Assigned at Not on file Legal Sex Male 12:56 AM CLOTH BALER Gender Identity Not on file Sexual Orientation Not on file documented as of this encounter Medications at Time of Discharge methylPREDNISolo ne (MEDROL, RADHA,) 4 mg tablet take by Oral route as directed on package 1 0 05/15/2012 11/21/2016 omeprazole (PriLOSEC) 20 mg capsule TAKE 1 CAPSULE (20MG) BY ORAL ROUTE EVERY DAY BEFORE A MEAL 90 2 11/03/2009 11/21/2016 omeprazole (PriLOSEC) 20 mg capsule TAKE 1 CAPSULE (20MG) BY ORAL ROUTE EVERY DAY BEFORE A MEAL 90 2 11/03/2009 11/21/2016 documented as of this encounter Plan of Treatment Not on file documented as of this encounter Visit Diagnoses Diagnosis Lumbosacral spondylosis without myelopathy Spinal stenosis of lumbar region without neurogenic claudication documented in this encounter Care Teams Data Security Analyst Relationship Specialty Start Date End Date Alberto Stanton PCP - General 07/03/11 08/30/16 documented as of this encounter
--- OUTSIDE RECORDS SUMMARY | 2024-06-14 16:53 | XMS_ITS | Encounter Summary ---
Author Organization [facility] Facility Care Team Providers Care Lna Name Role Phone Alberto Stanton Primary Care Provider Unavailabl e Encounter Details Date Type Department Care Team (Latest Contact Info) Description 08/14/2014 4:33 PM CDT - 08/14/2014 9:16 PM CDT Hospital Encounter [facility] Lui Thakkar MD [address] [facility] [address] [place] [address] Calculus of kidney Social History Tobacco Use Types Packs/Day Years Used Date Smoking Tobacco: Heavy Smoker Comments:Smoking History Pac ks/day: 2 Packs Alcohol Use Standard Drinks/Week Comments Yes 0 (1 standard drink = 0.6 oz pur e alcohol) Sex and Gender Information Value Date Recorded Sex Assigned at Not on file 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 Gender Identity Not on file Sexual [...] Comments CT ABDOMEN PELVIS WO CONTRAST Routine 08/14/2014 6:13 PM CDT PLASMA BASIC METABOLIC PANEL Routine 08/14/2014 5:50 PM CDT BLOOD CELL COUNT (CBC), MORPHOLOGIC EXAM Routine 08/14/2014 5:50 PM CDT URINE MICROSCOPY Routine 08/14/2014 5:05 PM CDT URINALYSIS Routine 08/14/2014 5:05 PM CDT DISCHARGE LABORATORY CUMULATIVE REPORT 08/14/2014 documented in this encounter Results * CT Abdomen Pelvis WO Contrast (08/14/2014 6:13 PM CDT) Anatomical Region Laterality Modality Body N/A Computed Tomogra phy 08/14/2014 6:13 PM CDT Narrative 08/15/2014 9:33 AM CDT JAD RAMIRES M.D. FINAL REPORT ACC# ??Date Time ??Exam [id number] Aug 14, 2014 18:13:[id number] Abd & Pelvis wo EXAMINATION: ?CT OF THE ABDOMEN AND PELVIS without INTRAVENOUS CONTRAST HISTORY: ??69-year-old male with right flank pain. TECHNIQUE: Transaxial computed tomographic images of the abdomen and pelvis were obtained without intravenous contrast according to renal stone protocol. ?? COMPARISON: Chest CT dated 04/04/12, Renal sonogram dated 10/24/11. FINDINGS: ?? Limited images of the lung bases are unremarkable. There are aortic valve calcifications. There is a hypoattenuating lesion in the liver which is indeterminate on this noncontrast evaluation, but unchanged since 2011, and likely represents a cyst or hemangioma. The gallbladder, spleen, pancreas, and adrenal glands are normal. There is a 6 mm stone in the distal left ureter. There is no proximal hydroureteronephrosis. There are multiple other nonobstructing stones in both kidneys. The largest on the right is located in the lower pole and measures 5 mm. The largest in the left is in the lower pole and measures 4 mm. There are scattered hypoattenuating lesions in both kidneys. The largest of which is a 2.9 cm exophytic cyst in the lower pole of the right kidney, which was previously identified on a renal sonogram dated 10/24/2011. The bladder is decompressed. There is moderate enlargement of the prostate. There is colonic diverticulosis without diverticulitis. No bowel wall thickening or obstruction. ??The appendix is visualized in its entirety and is normal. There are bilateral fat containing inguinal hernias. No abdominal or pelvic lymphadenopathy or free fluid. There are atherosclerotic calcifications of the aorta and many of its branches. There is diffuse idiopathic skeletal hyperostosis within the thoracic spine. There is mild to moderate degenerative disc disease throughout the visualized thoracolumbar spine. No suspicious lytic or blastic osseous abnormalities. IMPRESSION: ? 1. 6 mm nonobstructing stone in the distal left ureter. No hydroureteronephrosis. 2. Multiple other 5 mm and smaller nonobstructing stones in both kidneys. 3. Scattered hypoattenuating lesions in both kidneys, some of which are too small to characterize, and the largest of which represents a cyst in the lower pole of the right kidney, previously seen on renal sonogram in 2012. 4. Indeterminate hypoattenuating lesion in the liver which is unchanged since 2012, and likely represents a cyst or hemangioma. 5. Colonic diverticulosis without diverticulitis. The preliminary results were communicated by the teleradiologist telephone order clerk, Dr. Radha Armas, via facsimile at 6:44 p.m. on 08/14/2014. Requested By: Dictated By: ?? JAD RAMIRES M.D. ??on Aug 15 2014 ??9:33A This document has been electronically signed by: JAD RAMIRES M.D. on Aug 15 2014 ??9:33A [id number] Procedure Note Provider, MD Emmei - 09/23/2016 JAD RAMIRES M.D. FINAL REPORT ACC# Date Time Exam [id number] Aug 14, 2014 18:13:[address] Abd & Pelvis wo EXAMINATION: CT OF THE ABDOMEN AND PELVIS without INTRAVENOUSCONTRAST HISTORY: 69-year-old male with right flank pain. TECHNIQUE: Transaxial computed tomographic images of the abdomen and pelvis were obtained without intravenous contrast according to renal stone protocol. COMPARISON: Chest CT dated 04/04/12, Renal sonogram dated 10/24/11. FINDINGS: Limited images of the lung bases are unremarkable. There are aortic valve calcifications. There is a hypoattenuating lesion in the liver which is indeterminate on this noncontrast evaluation, but unchanged since 2012, and likely represents a cyst or hemangioma. The gallbladder, spleen, pancreas, and adrenal glands are normal. There is a 6 mm stone in the distal left ureter. There is no proximal hydroureteronephrosis. There are multiple other nonobstructing stones in both kidneys. The largest on the right is located in the lower pole and measures 5 mm. The largest in the left is in the lower pole and measures 4 mm. There are scattered hypoattenuating lesions in both kidneys. The largest of which is a 2.9 cm exophytic cyst in the lower pole of the right kidney, which was previously identified on a renal sonogram dated 10/24/2011. The bladder is decompressed. There is moderate enlargement of the prostate. There is colonic diverticulosis without diverticulitis. No bowel wall thickening or obstruction. The appendix is visualized in its entirety and is normal. There are bilateral fat containing inguinal hernias. No abdominal or pelvic lymphadenopathy or free fluid. There are atherosclerotic calcifications of the aorta and many of its branches. There is diffuse idiopathic skeletal hyperostosis within the thoracic spine. There is mild to moderate degenerative disc disease throughout the visualized thoracolumbar spine. No suspicious lytic or blastic osseous abnormalities. IMPRESSION: 1. 6 mm nonobstructing stone in the distal left ureter. No hydroureteronephrosis. 2. Multiple other 5 mm and smaller nonobstructing stones in bothkidneys. 3. Scattered hypoattenuating lesions in both kidneys, some of which are too small to characterize, and the largest of which represents a cyst in the lower pole of the right kidney, previously seen on renal sonogram in 2012. 4. Indeterminate hypoattenuating lesion in the liver which is unchanged since 2011, and likely represents a cyst or hemangioma. 5. Colonic diverticulosis without diverticulitis. The preliminary results were communicated by the teleradiologist telephone order clerk, Dr. Radha Armas, via facsimile at 6:44 p.m. on 08/14/2014. Requested By: Dictated By: JAD RAMIRES M.D. on Aug 15 2014 9:33A This document has been electronically signed by: JAD RAMIRES M.D. on Aug 15 2014 9:33A [id number] us Historical Provider MD CHARLES CT PROCEDURES Final R esult * (ABNORMAL) Blood cell count (CBC), morphologic exam (08/14/2014 5:50 PM CDT) WBC 9.4 4.5 - 11.0 K/cumm HISTORICAL RESULTS RBC 4.97 4.50 - 6.20 M/cumm HISTORICAL RESULTS Hgb 15.5 13.0 - 17.0 g/dl HISTORICAL RESULTS Hct 43.7 39.0 - 52.0 % HISTORICAL RESULTS MCV 87.9 80.0 - 100.0 fl HISTORICAL RESULTS MCH 31.2 27.0 - 33.0 pg HISTORICAL RESULTS MCHC 35.5 32.0 - 36.0 g/dl HISTORICAL RESULTS Rdw 14.2 11.5 - 14.5 % HISTORICAL RESULTS Platelets 168 140 - 400 K/cumm HISTORICAL RESULTS MPV 10.4 7.4 - 10.4 fl HISTORICAL RESULTS Neutrophils 79.3(H) 42.0 - 75.0 % HISTORICAL RESULTS Lymphocytes 10.9(L) 21.0 - 51.0 % HISTORICAL RESULTS Monos 7.2 2.0 - 9.0 % HISTORICAL RESULTS Eosinophils 2.4 0.0 - 10.0 % HISTORICAL RESULTS Basophils 0.2 0.0 - 1.0 % HISTORICAL RESULTS Neutrophils, abs 7.5(H) 1.0 - 6.6 K/cumm HISTORICAL RESULTS Lymphocytes, abs 1.0(L) 1.2 - 3.3 K/cumm HISTORICAL RESULTS Monocytes, absolute 0.7 0.2 - 1.2 K/cumm HISTORICAL RESULTS Eosinophils, abs 0.2 0.0 - 0.5 K/cumm HISTORICAL RESULTS Basophils, abs 0.0 0.0 - 0.2 K/cumm HISTORICAL RESULTS Blood specimen (specimen) 08/14/2014 5:50 PM CDT Pauline Rodriguez [facility] LAB BLOOD ORDERABLES Final [facility] Performing Organization Address [facility] de Phone Number HISTORICAL RESULTS * (ABNORMAL) Plasma basic metabolic panel (08/14/2014 5:50 PM CDT) Pathologist [facility] eGFR >60 ml/min/1.7 3 m2 HISTORICAL RESULTS Comment: GFR Reference Range: = > 60 mL/min/1.73 m2 This result has been calculated assuming the patient is Non-. ??If the patient is , please multiply this result by 1.21. Sodium 137 136 - 145 mmol/L HISTORICAL RESULTS K, pl 3.3(L) 3.5 - 5.1 mmol/L HISTORICAL RESULTS Chloride 102 98 - 107 mmol/L HISTORICAL RESULTS CO2 28 21 - 32 mmol/L HISTORICAL RESULTS A. gap 7 3 - 11 mmol/L HISTORICAL RESULTS BUN 15 7 - 18 mg/dl HISTORICAL RESULTS Creatinine 0.9 0.6 - 1.3 mg/dl HISTORICAL RESULTS Glucose 115 70 - 140 mg/dl HISTORICAL RESULTS Comment: Glucose is assumed to be non-fasting. Fasting Glucose reference ranges are: 0 days - 1 month: ? 40 mg/dL - 100 mg/dL 1 month - 999 years: ?70 mg/dL - 99 mg/dL Calcium 8.6 8.5 - 10.1 mg/dl HISTORICAL RESULTS Plasma 08/14/2014 5:50 PM CDT Pauline Chrsitine LAB BLOOD ORDERABLES Final [facility] Performing Organization Address [facility] de Phone Number HISTORICAL RESULTS * (ABNORMAL) Urinalysis (08/14/2014 5:05 PM CDT) [facility] Specific gravity, ur 1.020 1.000 - 1.030 HISTORICAL RESULTS pH, ur 6.0 5.0 - 8.5 HISTORICAL RESULTS Leukocyte esterase, ur Negative Negative HISTORICAL RESULTS Nitrites, ur Negative Negative HISTORI LIGIA RESULTS Protein, ur Negative Negative HISTORIC AL RESULTS Glucose, ur Negative Negative HISTORIC AL RESULTS Ketones, ur Negative Negative HISTORIC AL RESULTS Urobilinogen, ur 0.2 0.2,1 HISTORICAL RESULTS Bilirubin, ur Negative Negative HISTOR ICAL RESULTS RBC, ur TRACE-LYSED( A) Negative HISTORICAL RESULTS Color, ur Yellow Yellow HISTORICAL RESULTS Clarity, ur Clear Clear HISTORIC AL RESULTS Urine 08/14/2014 5:05 PM CDT Pauline R Avins LAB BLOOD ORDERABLES Final Resu lt HISTORICAL RESULTS * (ABNORMAL) Urine microscopy (08/14/2014 5:05 PM CDT) Epithelial cells, ur 5 - 10 /lpf HISTORICAL RESULTS WBC, ur 0 - 2 0-2,2-5 /hpf HISTORICAL RESULTS RBC, ur 2 - 5(A) 0 - 2 /hpf HISTORICAL RESULTS Bacteria, ur Trace /hpf HISTORI LIGIA RESULTS Casts, ur None Seen /lpf HISTORICAL RESULTS Urine 08/14/2014 5:05 PM CDT Pauline R Avins LAB BLOOD ORDERABLES Final Resu lt HISTORICAL RESULTS * DISCHARGE LABORATORY CUMULATIVE REPORT (08/14/2014) Narrative 08/14/2014 Ordered by an unspecified provider. Historical Provider LAB BLOOD ORDERABLES Mariaa l Result documented in this encounter Visit Diagnoses Diagnosis Calculus of kidney documented in this encounter Care Teams Lna Relationship Specialty Start Date End Date Alberto Stanton PCP - General 07/03/11 08/30/16 documented as of this encounter
--- OUTSIDE RECORDS SUMMARY | 2024-06-14 16:53 | XMS_ITS | Encounter Summary ---
Author Organization 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 - 06/16/2015 11:59 PM [facility] Hospital [place] [id number] [address] Sciatica Social History Tobacco Use Types Packs/Day Years Used Date Smoking Tobacco: Heavy Smoker Comments:Smoking History Pac ks/day: 2 Packs Alcohol Use Standard Drinks/Week Comments No 0 (1 standard drink = 0.6 oz pur e alcohol) Sex and Gender Information Value Date Recorded Sex Assigned at Not on file 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 Gender Identity Not on file Sexual Orientation Not on file documented as of this encounter Medications at Time of Discharge folic acid (FOLVITE) 1 mg tablet take 1 tablet by oral route every day 30 6 05/31/2015 07/17/2017 methotrexate 2.5 mg tablet take 8 tabs all at once, once a week 40 6 05/31/2015 11/11/2016 methylPREDNISolo ne (MEDROL, RADHA,) 4 mg tablet take by Oral route as directed on package 1 0 05/15/2012 11/21/2016 omeprazole (PriLOSEC) 20 mg capsule TAKE 1 CAPSULE (20MG) BY ORAL ROUTE EVERY DAY BEFORE A MEAL 90 2 11/03/2009 11/21/2016 omeprazole (PriLOSEC) 20 mg capsule TAKE 1 CAPSULE (20MG) BY ORAL ROUTE EVERY DAY BEFORE A MEAL 90 2 11/03/2009 11/21/2016 SUMAtriptan (IMITREX) 100 mg tablet take 1 tablet by oral route once with fluids as early as possible after the onset of a migraine attack;may repeat after 2 hours if headache returns, not to exceed 200mgin 24hrs 0 0 04/25/2015 07/30/2017 SUMAtriptan (IMITREX) 100 mg tablet take 1 tablet by oral route once with fluids as early as possible after the onset of a migraine attack;may repeat after 2 hours if headache returns, not to exceed 200mgin 24hrs 0 0 04/25/2015 11/21/2016 documented as of this encounter Plan of Treatment Not on file documented as of this encounter Visit Diagnoses Diagnosis Sciatica documented in this encounter Care Teams Transport Aircrewman Relationship Specialty Start Date End Date Alberto Stanton PCP - General 07/03/11 08/30/16 documented as of this encounter
--- OUTSIDE RECORDS SUMMARY | 2024-06-14 16:53 | XMS_ITS | Encounter Summary ---
Author Organization [facility] Healthcare Address [address] [place] [address] Care Team Providers Care Javascript Front End Developer Name Role Phone Alberto Stanton Primary Care Provider Unavailabl e Encounter Details Date Type Department Care Team (Late st Contact Info) Description 12/13/2011 7:45 AM CDT - 12/13/2011 9:40 AM CDT Hospital Encounter [facility] Kevin Jarquin MD [address] [place] [address] [address] [place] [address] Internal hemorrhoids Social History Tobacco Use Types Packs/Day Years Used Date Smoking Tobacco: Heavy Smoker Comments:Smoking History Pac ks/day: 2 Packs Alcohol Use Standard Drinks/Week Comments Yes 0 (1 standard drink = 0.6 oz pur e alcohol) Sex and Gender Information Value Date Recorded Sex Assigned at Not on file 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 Gender Identity Not on file Sexual Orientation Not on file documented as of this encounter Medications at Time of Discharge omeprazole (PriLOSEC) 20 mg capsule TAKE 1 CAPSULE (20MG) BY ORAL ROUTE EVERY DAY BEFORE A MEAL 90 2 11/03/2009 11/21/2016 omeprazole (PriLOSEC) 20 mg capsule TAKE 1 CAPSULE (20MG) BY ORAL ROUTE EVERY DAY BEFORE A MEAL 90 2 11/03/2009 11/21/2016 documented as of this encounter Plan of Treatment Not on file documented as of this encounter Visit Diagnoses Diagnosis Internal hemorrhoids Internal hemorrhoids without mention of complication documented in this encounter Care Teams Javascript Front End Developer Relationship Specialty Start Date End Date Alberto Stanton PCP - General 07/03/11 08/30/16 documented as of this encounter
--- OUTSIDE RECORDS SUMMARY | 2024-06-14 16:53 | XMS_ITS | Encounter Summary ---
Author Organization [facility] Healthcare Address [address] [place] [address] Care Team Providers Care Onyx Chip Terrazzo Worker Name Role Phone Hernando De La Cruz Primary Care Provider Unavailabl e Encounter Details Date Type Department Care Team (Latest Contact Info) Description 06/07/2015 9:45 AM COIL WRAPPER - 06/07/2015 11:59 PM COIL WRAPPER Hospital Encounter [facility] CLINCONV Hernando De La Cruz Cough; Essential (primary) hypertension Social History Tobacco Use Types Packs/Day Years Used Date Smoking Tobacco: Heavy Smoker Comments:Smoking History Pac ks/day: 2 Packs Alcohol Use Standard Drinks/Week Comments No 0 (1 standard drink = 0.6 oz pur e alcohol) Sex and Gender Information Value Date Recorded Sex Assigned at Not on file Legal Sex Male 12:56 AM COIL WRAPPER Gender Identity Not on file Sexual Orientation [...] XR CHEST PA LATERAL 2 VIEWS Routine 06/07/2015 10:38 AM COIL WRAPPER SERUM THYROXINE (T4), FREE Routine 06/07 10:15 AM COIL WRAPPER SERUM THYROID-STIMULATING HORMONE (TSH) Routine 06/07/2015 10:15 AM COIL WRAPPER SERUM LIPID PANEL Routine 06/07/2015 10: 15 AM COIL WRAPPER SERUM ESTIMATED GLOMERULAR FILTRATION RATE Routine 06/07/2015 10:15 AM COIL WRAPPER SERUM BILIRUBIN, DIRECT Routine 06/07/19 16 10:15 AM COIL WRAPPER PLASMA COMPREHENSIVE METABOLIC PANEL Routine 06/07/2015 10:15 AM COIL WRAPPER BLOOD CELL COUNT (CBC), MORPHOLOGIC EXAM Routine 06/07/2015 10:15 AM COIL WRAPPER BLOOD CELL MORPHOLOGIC EXAM Routine 06/07/2015 10:15 AM COIL WRAPPER ELECTROCARDIOGRAPHY (ECG) 06/07/2015 DISCHARGE LABORATORY CUMULATIVE REPORT 06/07/2015 documented in this encounter Results * XR Chest PA Lateral 2 View (06/07/2015 10:38 AM COIL WRAPPER) Anatomical Region Laterality Modality Body, Chest N/A Radiographic Corin ging 06/07/2015 10:3 8 AM COIL WRAPPER Narrative 06/07/2015 12:25 PM COIL WRAPPER XR Chest 2 Views ?[id number] ??Acc#: ??[id number] DATE OF EXAM: ??Eddie ??2015 CLINICAL HISTORY: Cough. RESULT: PA and lateral views of the chest were obtained. ??Correlation with a chest CT from 09/15/2014 is made. ??The heart is overall normal in size. No consolidations, pneumothorax or pleural effusion is seen. ??Spurring is noted at the left acromioclavicular joint, and degenerative change is present in the thoracic spine. IMPRESSION: NO ACUTE CARDIOPULMONARY PROCESS. Interpreting Physician: ??CINDY FUENTES M.D. ??Read on: ??Jun ??2015 10:40A Transcribed by: ??stephan ??On: Jun ??2015 11:55A Approved Electronically by: ??CINDY FUENTES M.D. ??on: ??Jun ??2015 12:25P Attending: ??DR HERNANDO DE LA CRUZ Requesting: ??DR HERNANDO DE LA CRUZ Requesting Fax: ??[phone] Attending Fax: ??[phone] Attending ID: ??[id number] Requesting ID: ??[id number] Report To 1 ID: ??[id number] Report To 1 Name: ??DR HERNANDO DE LA CRUZ Report To 1 FAX: ??[phone] [facility] Order #: ??[id number] Procedure Note Provider, MD Emmie - 09/23/2016 XR Chest 2 Views [id number] Acc#: [id number] DATE OF EXAM: Jun 07 2015 CLINICAL HISTORY: Cough. RESULT: PA and lateral views of the chest were obtained. Correlation with achest CT from 09/15/2014 is made. The heart is overall normal in size. Noconsolidations, pneumothorax or pleural effusion is seen. Spurring isnoted at the left acromioclavicular joint, and degenerative change ispresent in the thoracic spine. IMPRESSION: NO ACUTE CARDIOPULMONARY PROCESS. Interpreting Physician: CINDY FUENTES M.D. Read on: Jun 07 201510:40A Transcribed by: clem On: Jun 07 2015 11:55A Approved Electronically by: CINDY FUENTES M.D. on: Jun 07 201512:25P Attending: DR HERNANDO DE LA CRUZ Requesting: DR HERNANDO DE LA CRUZ Requesting Attending Attending ID: [id number] Requesting ID: [id number] Report To 1 ID: [id number] Report To 1 Name: DR HERNANDO DE LA CRUZ Report To 1 FAX: [phone] [facility] Order #: [id number] Historical Provider IMG XR PROCEDURES Final R esult * Serum thyroid-stimulating hormone (TSH) (06/07/2015 10:15 AM COIL WRAPPER) Pathologist [facility] TSH 1.49 0.30 - 5.00 mcIUnits/ml HISTORICAL RESULTS Serum 06/07/2015 10:1 5 AM COIL WRAPPER Historical Provider LAB BLOOD ORDERABLES Mariaa l Result Performing Organization Address [facility] de Phone Number HISTORICAL RESULTS * Serum bilirubin, direct (06/07/2015 10:15 AM COIL WRAPPER) Pathologist [facility] Bilirubin, direct <0.2 0.0 - 0.3 mg/dl HISTORICAL RESULTS Serum 06/07/2015 10:1 5 AM COIL WRAPPER Historical Provider LAB BLOOD ORDERABLES Mariaa l Result Performing Organization Address [facility] de Phone Number HISTORICAL RESULTS * (ABNORMAL) Plasma comprehensive metabolic panel (06/07/2015 10:15 AM COIL WRAPPER) Sodium 142 135 - 145 mmol/L HISTORICAL RESULTS K, pl 4.0 3.5 - 5.1 mmol/L HISTORICAL RESULTS Chloride 103 97 - 110 mmol/L HISTORICAL RESULTS CO2 27 22 - 32 mmol/L HISTORICAL RESULTS A. gap 16 8 - 16 mmol/L HISTORICAL RESULTS Glucose 95 70 - 199 mg/dl HISTORICAL RESULTS Comment: Interpretive Data Note:The glucose is assumed non fasting Fastin-99 mg/dL Random: ??70-199 mg/dL Either a fasting glucose > 126 mg/dL or a random glucose > 200 mg/dL plus symptoms is diagnostic of diabetes when confirmed on another day. Fasting values > 100 mg/dL but < 125 mg/dL are diagnostic of impaired fasting glucose. Current interpretive data was last revised on 2014. BUN 20.5 8.0 - 25.0 mg/dl HISTORICAL RESULTS Creatinine 0.97 0.70 - 1.30 mg/dl HISTORICAL RESULTS BUN/creat ratio 21(H) 10 - 20 HIST ORICAL RESULTS Calcium 8.9 8.6 - 10.2 mg/dl HISTORICAL RESULTS Protein, sr 6.8 6.0 - 8.4 g/dl HISTORICAL RESULTS Alb 4.0 3.6 - 5.0 g/dl HISTORICAL RESULTS Alb/glob ratio 1.4 1.1 - 1.8 ratio HISTORICAL RESULTS Alk phos 56 40 - 130 Units/L HISTORICAL RESULTS ALT 35 5 - 50 Units/L HISTORICAL RESULTS AST 27 10 - 45 Units/L HISTORICAL RESULTS Bilirubin 0.6 <=1.2 mg/dl HISTORICAL RESULTS Plasma 06/07/2015 10:1 5 AM COIL WRAPPER us Historical Provider LAB BLOOD ORDERABLES Mariaa rosado Result HISTORICAL RESULTS * (ABNORMAL) Serum lipid panel (06/07/2015 10:15 AM COIL WRAPPER) Pathologist [facility] Cholesterol 135 40 - 199 mg/dl HISTORICAL RESULTS Comment: Interpretive Data Desirable: ??Less than 200 mg/dl ? Borderline High: ?200 - 239 mg/dl ? High: ??Greater than ?? 239 mg/dl Current interpretive data was last revised on 2014. Triglycerides 189(H) <=150 mg/dl HISTORICAL RESULTS Comment: Interpretive Data Normal: ? Less than 150 mg/dl Borderline high: ??105-199 mg/dl ?? High: ? 200-499 mg/dl ? Very high: ??Greater than or equal to 500 mg/dl Current interpretive data was last revised on 2014. HDL 33(L) 40 - 60 mg/dl HISTORICAL RESULTS Comment: Interpretive Data Low HDL Cholesterol: ? Less than 40 mg/dl Normal HDL Cholesterol: ??40-60 mg/dl High HDL Cholesterol: ?Greater than 60 mg/dl Current interpretive data was last revised on 2014. LDL 64 mg/dl HISTORICAL RESULTS Comment: Interpretive Data Optimal ? Less than 100 mg/dL ? Near optimal/Above optimal ??100 - 129 mg/dL ? Borderline high ? 130 - 159 mg/dL ? High ?160 - 189 mg/dL ? Very high ? Greater than or = 190 mg/dL ? LDL values are not valid when the total Triglyceride is greater than 300 mg/dL. Current interpretive data was last revised on 2014. Non-HDL cholesterol, calculated 102 mg/dl HISTORICAL RESULTS Comment: Interpretive Data Optimal ? Less than 130 mg/dL Low Risk ?130 - 159 mg/dL Moderate Risk ? 160 - 189 mg/dL High Risk ? Greater than or equal to 190 mg/dL Current interpretive data was last revised on 2014. Serum 06/07/2015 10:1 5 AM COIL WRAPPER us Historical Provider LAB BLOOD ORDERABLES Mariaa rosado Result HISTORICAL RESULTS * Serum thyroxine (T4), free (06/07/2015 10:15 AM COIL WRAPPER) Free T4 1.1 0.8 - 1.8 ng/dl HISTORICAL RESULTS Serum 06/07/2015 10:1 5 AM COIL WRAPPER Historical Provider LAB BLOOD ORDERABLES Mariaa l Result Performing Organization Address City/[facility]/ZIP Co de Phone Number HISTORICAL RESULTS * (ABNORMAL) Blood cell morphologic exam (06/07/2015 10:15 AM COIL WRAPPER) Neutrophils 58.5 44.0 - 80.0 % HISTORICAL RESULTS Immature granulocytes 0.4 0.0 - 1.0 % HISTORICAL RESULTS Lymphocytes 24.5 13.0 - 44.0 % HISTORICAL RESULTS Monos 7.8 2.0 - 11.0 % HISTORICAL RESULTS Eosinophils 7.8(H) 0.0 - 6.0 % HISTORICAL RESULTS Basophils 1.0 0.0 - 3.0 % HISTORICAL RESULTS Neutrophils, abs 2.8 1.6 - 7.0 K/cumm HISTORICAL RESULTS Immature granulocyte, abs 0.02 0.00 - 0.20 K/cumm HISTORICAL RESULTS Lymphocytes, abs 1.2 0.5 - 4.3 K/cumm HISTORICAL RESULTS Monocytes, absolute 0.4 0.1 - 1.0 K/cumm HISTORICAL RESULTS Eosinophils, abs 0.4 0.0 - 0.6 K/cumm HISTORICAL RESULTS Basophils, abs 0.0 0.0 - 0.3 K/cumm HISTORICAL RESULTS Blood specimen (specimen) 06/07/2015 10:15 AM COIL WRAPPER Historical Provider LAB BLOOD ORDERABLES Mariaa l Result HISTORICAL RESULTS * Blood cell count (CBC), morphologic exam (06/07/2015 10:15 AM COIL WRAPPER) WBC 4.9 3.8 - 9.8 K/cumm HISTORICAL RESULTS RBC 5.20 4.50 - 5.70 M/cumm HISTORICAL RESULTS Hgb 16.2 13.8 - 17.2 g/dl HISTORICAL RESULTS Hct 46.8 40.7 - 50.3 % HISTORICAL RESULTS MCV 90.0 80.0 - 100.0 fl HISTORICAL RESULTS MCH 31.2 26.7 - 33.7 pg HISTORICAL RESULTS MCHC 34.6 32.7 - 36.0 g/dl HISTORICAL RESULTS Rdw 13.0 11.5 - 14.6 % HISTORICAL RESULTS Platelets 142 140 - 440 K/cumm HISTORICAL RESULTS MPV 10.4 8.0 - 12.0 fl HISTORICAL RESULTS NRBC 0.0 0.0 - 0.0 % HISTORIC AL RESULTS NRBC, abs 0.00 0.00 - 0.00 K/cumm HISTORICAL RESULTS Blood specimen (specimen) 06/07/2015 10:15 AM COIL WRAPPER Historical Provider LAB BLOOD ORDERABLES Mariaa l Result Performing Organization Address [facility] de Phone Number HISTORICAL RESULTS * Serum estimated glomerular filtration rate (06/07/2015 10:15 AM COIL WRAPPER) eGFR >60 ml/min/1.7 3 m2 HISTORICAL RESULTS Comment: Interpretation of Estimated GFR (eGFR): Normal ?>/= 60 mL/min/1.73m2 Possible Chronic Kidney Disease ??15 - 59 mL/min/1.73m2 Possible Kidney Failure ?< 15 ??mL/min/1.73m2 If -[place] multiply value by 1.16. ??Estimated glomerular filtration rate is determined by the CKD-EPI equation recommended by the National Kidney Foundation (KDIGO 2012 Clinical Practice Guideline for the Evaluation and Management of Chronic Kidney Disease. ??Kidney Intnl Suppl Jun 2012;3:1). ??The CKD-EPI equation should not be used in acute renal failure or acute kidney injury and is not valid in children. Serum 06/07/2015 10:1 5 AM COIL WRAPPER Historical Provider LAB BLOOD ORDERABLES Mariaa l Result Performing Organization Address City/[facility]/ZIP Co de Phone Number HISTORICAL RESULTS * DISCHARGE LABORATORY CUMULATIVE REPORT (06/07/2015) Narrative 06/07/2015 Ordered by an unspecified provider. us Historical Provider LAB BLOOD ORDERABLES Mariaa l Result * ELECTROCARDIOGRAPHY (ECG) (06/07/2015) Narrative 06/07/2015 Ordered by an unspecified provider. us Historical Provider ECG ORDERABLES Final Res ult documented in this encounter Visit Diagnoses Diagnosis Cough Essential (primary) hypertension Unspecified essential hypertension documented in this encounter Care Teams Onyx Chip Terrazzo Worker Relationship Specialty Start Date End Date Hernando De La Cruz PCP - General 07/03/11 08/30/16 documented as of this encounter
--- OUTSIDE RECORDS SUMMARY | 2024-06-14 16:53 | XMS_ITS | Encounter Summary ---
Author Organization [facility] Healthcare Address [address] [place] [address] Care Team Providers Care Lens Grinder Name Role Phone Alberto Stanton Primary Care Provider Unavailabl e Encounter Details Date Type Department Care Team (Late st Contact Info) Description 04/23/2015 11:00 AM REFRIGERATING TECHNICIAN - 04/23/2015 1:48 PM REFRIGERATING TECHNICIAN Hospital Encounter [facility] Barbra Madrid, DO [address] [place] [address] Other chronic pain; Spondylosis of lumbosacral region without myelopathy or radiculopathy; Personal history of urinary calculi; Personal history of nicotine dependence Social History Tobacco Use Types Packs/Day Years Used Date Smoking Tobacco: Heavy Smoker Comments:Smoking History Pac ks/day: 2 Packs Alcohol Use Standard Drinks/Week Comments No 0 (1 standard drink = 0.6 oz pur e alcohol) Sex and Gender Information Value Date Recorded Sex Assigned at Not on file Legal Sex Male 12:56 AM REFRIGERATING TECHNICIAN Gender Identity Not on file Sexual [...] Date/Time Associated Diagnosis Comments XR SPINE LUMBAR ROUTINE Routine 04/23/2015 11:57 AM REFRIGERATING TECHNICIAN SERUM ESTIMATED GLOMERULAR FILTRATION RATE Routine 04/23/2015 11:40 AM REFRIGERATING TECHNICIAN PLASMA COMPREHENSIVE METABOLIC PANEL Routine 04/23/2015 11:40 AM REFRIGERATING TECHNICIAN BLOOD CELL COUNT (CBC), MORPHOLOGIC EXAM Routine 04/23/2015 11:40 AM REFRIGERATING TECHNICIAN BLOOD CELL MORPHOLOGIC EXAM Routine 04/23/2015 11:40 AM REFRIGERATING TECHNICIAN URINALYSIS Routine 04/23/2015 11:38 AM REFRIGERATING TECHNICIAN DISCHARGE LABORATORY CUMULATIVE REPORT 04/23/2015 documented in this encounter Results * XR Lumbar Spine Routine (04/23/2015 11:57 AM REFRIGERATING TECHNICIAN) Anatomical Region Laterality Modality L-spine N/A Radiographic Corin ging 04/23/2015 11:5 7 AM REFRIGERATING TECHNICIAN Narrative 04/24/2015 12:17 PM REFRIGERATING TECHNICIAN XR Lumbar Spine Routine ??[id number] ??Acc#: ??[id number] DATE OF EXAM: ??Apr 23 2015 CLINICAL HISTORY: Low back pain for years. ??No known injury. RESULT: AP, lateral and oblique images of the lumbar spine obtained correlated to a prior study from 05/15/12. Lumbar alignment is anatomic with no compression fracture identified. There is moderate to advanced facet osteoarthritis at the L4-5 and L5-S1 levels and at least mild to moderate at the other lumbar levels. Multilevel degenerative endplate spur formation is seen as well. ??There is mild narrowing of the L5-S1 disc space. IMPRESSION: 1. 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 2. NO LUMBAR COMPRESSION FRACTURE. Interpreting Physician: ??APOLINAR ABDULLAHI M.D. ??Read on: ??Apr 23 2015 12:59P Transcribed by: ??vam ??On: Apr 24 2015 ??9:40A Approved Electronically by: ??APOLINAR ABDULLAHI M.D. ??on: ??Apr 24 2015 12:16P Attending: ??BARBRA KAISER Requesting: ??BARBRA KAISER Requesting Fax: ??-- Attending Fax: ??-- Attending ID: ??[id number] Requesting ID: ??[id number] Report To 1 ID: ??[id number] Report To 1 Name: ??BARBRA KAISER Report To 1 FAX: ??-- [facility] Order #: Procedure Note Provider, MD Emmie - 09/23/2016 XR Lumbar Spine Routine [id number] Acc#: [id number] DATE OF EXAM: Apr 23 2015 CLINICAL HISTORY: Low back pain for years. No known injury. RESULT: AP, lateral and oblique images of the lumbar spine obtained correlated toa prior study from 05/15/12. Lumbar alignment is anatomic with nocompression fracture identified. There is moderate to advanced facetosteoarthritis at the L4-5 and L5-S1 levels and at least mild to moderateat the other lumbar levels. Multilevel degenerative endplate spurformation is seen as well. There is mild narrowing of the L5-S1 discspace. IMPRESSION: 1. 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 2. NO LUMBAR COMPRESSION FRACTURE. Interpreting Physician: APOLINAR ABDULLAHI M.D. Read on: Apr 23 2015 12:59P Transcribed by: remigio On: Apr 24 2015 9:40A Approved Electronically by: APOLINAR ABDULLAHI M.D. on: Apr 24 2015 12:16P Attending: BARBRA KAISER Requesting: BARBRA KAISER Requesting Fax: -- Attending Fax: -- Attending ID: [id number] Requesting ID: [id number] Report To 1 ID: [id number] Report To 1 Name: BARBRA KAISER Report To 1 FAX: -- [facility] Order #: us Historical Provider [id number] XR PROCEDURES Final R esult * Plasma comprehensive metabolic panel (04/23/2015 11:40 AM REFRIGERATING TECHNICIAN) Sodium 140 135 - 145 mmol/L HISTORICAL RESULTS K, pl 4.4 3.5 - 5.1 mmol/L HISTORICAL RESULTS Chloride 102 97 - 110 mmol/L HISTORICAL RESULTS CO2 28 22 - 32 mmol/L HISTORICAL RESULTS A. gap 14 8 - 16 mmol/L HISTORICAL RESULTS Glucose 89 70 - 199 mg/dl HISTORICAL RESULTS Comment: [...] data was last revised on 2014. BUN 18.8 8.0 - 25.0 mg/dl HISTORICAL RESULTS Creatinine 1.19 0.70 - 1.30 mg/dl HISTORICAL RESULTS BUN/creat ratio 16 10 - 20 HIST ORICAL RESULTS Calcium 8.8 8.6 - 10.2 mg/dl HISTORICAL RESULTS Protein, sr 6.6 6.0 - 8.4 g/dl HISTORICAL RESULTS Alb 4.1 3.6 - 5.0 g/dl HISTORICAL RESULTS Alb/glob ratio 1.6 1.1 - 1.8 ratio HISTORICAL RESULTS Alk phos 59 40 - 130 Units/L HISTORICAL RESULTS ALT 17 5 - 50 Units/L HISTORICAL RESULTS AST 17 10 - 45 Units/L HISTORICAL RESULTS Bilirubin 0.5 <=1.2 mg/dl HISTORICAL RESULTS Plasma 04/23/2015 11:4 0 AM REFRIGERATING TECHNICIAN us Historical Provider LAB BLOOD ORDERABLES Mariaa l Result HISTORICAL RESULTS * (ABNORMAL) Blood cell morphologic exam (04/23/2015 11:40 AM REFRIGERATING TECHNICIAN) Neutrophils 54.1 44.0 - 80.0 % HISTORICAL RESULTS Immature granulocytes 0.2 0.0 - 1.0 % HISTORICAL RESULTS Lymphocytes 28.7 13.0 - 44.0 % HISTORICAL RESULTS Monos 8.6 2.0 - 11.0 % HISTORICAL RESULTS Eosinophils 7.7(H) 0.0 - 6.0 % HISTORICAL RESULTS Basophils 0.7 0.0 - 3.0 % HISTORICAL RESULTS Neutrophils, abs 2.4 1.6 - 7.0 K/cumm HISTORICAL RESULTS Immature granulocyte, abs 0.01 0.00 - 0.20 K/cumm HISTORICAL RESULTS Lymphocytes, abs 1.3 0.5 - 4.3 K/cumm HISTORICAL RESULTS Monocytes, absolute 0.4 0.1 - 1.0 K/cumm HISTORICAL RESULTS Eosinophils, abs 0.3 0.0 - 0.6 K/cumm HISTORICAL RESULTS Basophils, abs 0.0 0.0 - 0.3 K/cumm HISTORICAL RESULTS Blood specimen (specimen) 04/23/2015 11:40 AM REFRIGERATING TECHNICIAN Historical Provider LAB BLOOD ORDERABLES Mariaa l Result Performing Organization Address [facility] de Phone Number HISTORICAL RESULTS * (ABNORMAL) Blood cell count (CBC), morphologic exam (04/23/2015 11:40 AM REFRIGERATING TECHNICIAN) WBC 4.4 3.8 - 9.8 K/cumm HISTORICAL RESULTS RBC 4.97 4.50 - 5.70 M/cumm HISTORICAL RESULTS Hgb 15.4 13.8 - 17.2 g/dl HISTORICAL RESULTS Hct 45.4 40.7 - 50.3 % HISTORICAL RESULTS MCV 91.3 80.0 - 100.0 fl HISTORICAL RESULTS MCH 31.0 26.7 - 33.7 pg HISTORICAL RESULTS MCHC 33.9 32.7 - 36.0 g/dl HISTORICAL RESULTS Rdw 13.2 11.5 - 14.6 % HISTORICAL RESULTS Platelets 130(L) 140 - 440 K/cumm HISTORICAL RESULTS MPV 10.0 8.0 - 12.0 fl HISTORICAL RESULTS NRBC 0.0 0.0 - 0.0 % HISTORIC AL RESULTS NRBC, abs 0.00 0.00 - 0.00 K/cumm HISTORICAL RESULTS Blood specimen (specimen) 04/23/2015 11:40 AM REFRIGERATING TECHNICIAN Historical Provider LAB BLOOD ORDERABLES Mariaa l Result Performing Organization Address City/[facility] de Phone Number HISTORICAL RESULTS * Serum estimated glomerular filtration rate (04/23/2015 11:40 AM REFRIGERATING TECHNICIAN) eGFR >60 ml/min/1.7 3 m2 HISTORICAL RESULTS Comment: Interpretation of Estimated GFR (eGFR): Normal ?>/= 60 mL/min/1.73m2 Possible Chronic Kidney Disease ??15 - 59 mL/min/1.73m2 Possible Kidney Failure ?< 15 ??mL/min/1.73m2 If -[place] multiply value by 1.16. ??Estimated glomerular filtration rate is determined by the CKD-EPI equation recommended by the National Kidney Foundation (KDIGO 2012 Clinical Practice Guideline for the Evaluation and Management of Chronic Kidney Disease. ??Kidney Intnl Suppl Jun 2012;3:1). ??The CKD-EPI equation should not be used in acute renal failure or acute kidney injury and is not valid in children. Serum 04/23/2015 11:4 0 AM REFRIGERATING TECHNICIAN Historical Provider LAB BLOOD ORDERABLES Mariaa l Result Performing Organization Address [facility] de Phone Number HISTORICAL RESULTS * Urinalysis (04/23/2015 11:38 AM REFRIGERATING TECHNICIAN) Color, ur Yellow Yellow HISTORICAL RESULTS Clarity, ur Clear Clear HISTORIC AL RESULTS Specific gravity, ur 1.015 1.003 - 1.030 HISTORICAL RESULTS Comment:Normal Ranges: 1.003 -1.030 pH, ur 5.0 4.5 - 8.0 HISTORICAL RESULTS Comment:Normal ranges: 4.5-8 .0 Protein, ur, quant Negative Negative mg/dl HISTORICAL RESULTS Glucose, ur, quant Negative Negative mg/dl HISTORICAL RESULTS Ketones, ur Negative Negative HISTORIC AL RESULTS Bilirubin, ur Negative Negative HISTOR ICAL RESULTS U Blood Negative Negative HISTORICAL RESULTS Urobilinogen, quant, ur 0.2 0.2 - 1.0 Charles Units/dl HISTORICAL RESULTS Comment:Normal Ranges: 0.2-1 .0 EU/dL Nitrites, ur Negative Negative HISTORI LIGIA RESULTS Leukocyte esterase, ur Negative Negative HISTORICAL RESULTS Urine 04/23/2015 11:3 8 AM REFRIGERATING TECHNICIAN Historical Provider LAB BLOOD ORDERABLES Mariaa l Result Performing Organization Address [facility] de Phone Number HISTORICAL RESULTS * DISCHARGE LABORATORY CUMULATIVE REPORT (04/23/2015) Narrative 04/23/2015 Ordered by an unspecified provider. us Historical Provider LAB BLOOD ORDERABLES Mariaa l Result documented in this encounter Visit Diagnoses Diagnosis Other chronic pain Spondylosis of lumbosacral region without myelopathy or radiculopathy Personal history of urinary calculi Personal history of nicotine dependence documented in this encounter Care Teams Lens Grinder Relationship Specialty Start Date End Date Alberto Stanton PCP - General 07/03/11 08/30/16 documented as of this encounter
--- OUTSIDE RECORDS SUMMARY | 2024-06-14 16:53 | XMS_ITS | Encounter Summary ---
Author Organization [facility] Healthcare Address [address] [place] [address] Care Team Providers Care Shield Operator Name Role Phone Alberto Stanton Primary Care Provider Unavailabl e Encounter Details Date Type Department Care Team (Late st Contact Info) Description 10/06/2016 8:11 AM CDT - 10/06/2016 11:50 AM CDT Emergency 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 Gender Identity Not on file Sexual Orientation Not on file documented as of this encounter Medications at Time of Discharge folic acid (FOLVITE) 1 mg tablet take 1 tablet by oral route every day 30 6 05/31/2015 8 methotrexate 2.5 mg tablet take 8 tabs all at once, once a week 40 6 05/31/2015 7 cyclobenzaprine (FLEXERIL) 10 mg tablet take 1 [...] Comments CT ABDOMEN PELVIS WO CONTRAST Routine 10/06/2016 2:19 PM CDT documented in this encounter Results * CT Abdomen Pelvis WO Contrast (10/06/2016 2:19 PM CDT) Anatomical Region Laterality Modality Body N/A Computed Tomogra phy 10/06/2016 2:19 PM CDT Narrative 10/06/2016 2:[address] [place] [place] ??[id number] ??Acc#: ??[id number] DATE OF EXAM: ??October ??2016 ?? [place] ??[id number] HISTORY: Abdominal Pain. TECHNIQUE: Serial axial images of the abdomen and pelvis obtained without contrast per renal stone protocol COMPARISON: 06/08/2016 CT KUB Stone protocol FINDINGS: There is a 4 mm stone in the very distal aspect of the left ureter just proximal to the left ureterovesical junction that results in mild to moderate left hydroureteronephrosis. ??There are additional bilateral renal stones. ??No hydronephrosis is seen on the right. There is a 3 cm right renal cyst. Lung bases are clear. Assessment of the solid abdominal organs is limited by the lack of IV contrast. There is atherosclerotic plaque in a normal caliber abdominal aorta. There is a retroaortic left renal vein. There is a subcentimeter hypodensity in the left lobe of the liver believed to be a small cyst but is only partially visualized otherwise the liver appears normal.. Gallbladder is normal. Partially visualized spleen is normal. Adrenal glands are normal. Pancreas is normal. There are no dilated loops of small or large bowel or inflammatory bowel changes. ??Mild sigmoid colon diverticulosis is present. The prostate gland is mildly enlarged. Appendix is normal. There is no free air, free fluid or adenopathy. There is a minimal fat-containing umbilical hernia. There are no acute osseous abnormalities. 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 IMPRESSION: 1. ??4 MM VERY DISTAL LEFT URETER STONE JUST PROXIMAL TO THE LEFT URETEROVESICAL JUNCTION RESULTING IN MILD TO MODERATE LEFT HYDROURETERONEPHROSIS. ??IN ADDITION THERE ARE OTHER BILATERAL RENAL STONES.. Electronically signed by: Apolinar Garrison M.D. Interpreting Physician: ??APOLINAR GARRISON M.D. ??Read on: ??May ??6 2017 ??9:39A Transcribed by: ??PSC ??On: May ?? 2017 ??9:37A Approved Electronically by: ??APOLINAR GARRISON M.D. ??on: ??May ?? 2017 ??9:37A Ordering DR: DR JIMENEZ IVEY Attending DR: DR JIMENEZ IVEY Attending: ??DR JIMENEZ IVEY Requesting: ??DR JIMENEZ IVEY Requesting Fax: ??[phone] Attending Fax: ??[phone] Attending ID: ??[id number] Requesting ID: ??[id number] Report To 1 ID: ??[id number] Report To 1 Name: ??DR JIMENEZ IVEY Report To 1 FAX: ??[phone] Next[facility] Order #: ?? Procedure Note Miscellaneous, Not In File / Provider, MD Emmie - 10/27/[place] [id number] Acc#: [id number] DATE OF EXAM: Oct [address] [place] [address] HISTORY: Abdominal Pain. TECHNIQUE: Serial axial images of the abdomen and pelvis obtained without contrast per renal stone protocol COMPARISON: 06/08/2016 CT KUB Stone protocol FINDINGS: There is a 4 mm stone in the very distal aspect of the left ureter just proximal to the left ureterovesical junction that results in mild to moderate left hydroureteronephrosis. There are additional bilateral renal stones. No hydronephrosis is seen on the right. There is a 3 cm right renal cyst. Lung bases are clear. Assessment of the solid abdominal organs is limited by the lack of IV contrast. There is atherosclerotic plaque in a normal caliber abdominal aorta. There is a retroaortic left renal vein. There is a subcentimeter hypodensity in the left lobe of the liver believed to be a small cyst but is only partially visualized otherwise the liver appears normal.. Gallbladder is normal. Partially visualized spleen is normal. Adrenal glands are normal. Pancreas is normal. There are no dilated loops of small or large bowel or inflammatory bowel changes. Mild sigmoid colon diverticulosis is present. The prostate gland is mildly enlarged. Appendix is normal. There is no free air, free fluid or adenopathy. There is a minimal fat-containing umbilical hernia. There are no acute osseous abnormalities. 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 IMPRESSION: 1. 4 MM VERY DISTAL LEFT URETER STONE JUST PROXIMAL TO THE LEFT URETEROVESICAL JUNCTION RESULTING IN MILD TO MODERATE LEFT HYDROURETERONEPHROSIS. IN ADDITION THERE ARE OTHER BILATERAL RENAL STONES.. Electronically signed by: Apolinar Garrison M.D. Interpreting Physician: APOLINAR GARRISON M.D. Read on: Oct 06 2016 9:39A Transcribed by: [facility] On: Oct 06 2016 9:37A Approved Electronically by: APOLINAR GARRISON M.D. on: Oct 06 2016 9:37A Ordering DR: DR JIMENEZ IVEY Attending DR: DR JIMENEZ IVEY Attending: DR JIMENEZ IVEY Requesting: DR JIMENEZ IVEY Requesting Attending Attending ID: [id number] Requesting ID: [id number] Report To 1 ID: [id number] Report To 1 Name: DR JIMENEZ IVEY Report To 1 FAX: [phone] Next[facility] Order #: us Not In File Miscellaneous IMG CT PROCEDURES Mariaa l Result documented in this encounter Visit Diagnoses Not on filedocumented in this encounter Care Teams Shield Operator Relationship Specialty Start Date End Date Alberto Stanton PCP - General 08/31/16 05/01/17 documented as of this encounter
--- OUTSIDE RECORDS SUMMARY | 2024-06-14 16:53 | XMS_ITS | Encounter Summary ---
Author Organization [facility] Healthcare Address [address] [place] [address] Care Team Providers Care Railroad Yard Worker Name Role Phone Alberto Stanton Primary Care Provider Unavailabl e Encounter Details Date Type Department Care Team (Late st Contact Info) Description 06/08/2016 9:02 PM PRINTER FLOOR 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 - 06/08/2016 10:43 PM PRINTER FLOOR 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 Hospital Encounter [facility] Uriah Avila MD [address] [place] [id number] Abdominal pain; Gastro-esophageal reflux disease without esophagitis; Personal history of urinary calculi Social History Tobacco Use Types Packs/Day Years Used Date Smoking Tobacco: Heavy Smoker Comments:Smoking History Pac ks/day: 2 Packs Alcohol Use Standard Drinks/Week Comments No 0 (1 standard drink = 0.6 oz pur e alcohol) Sex and Gender Information Value Date Recorded Sex Assigned at Not on file Legal Sex Male 12:56 AM PRINTER FLOOR 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 Gender Identity Not on file Sexual Orientation Not on file documented as of this encounter Medications at Time of Discharge folic acid (FOLVITE) 1 mg tablet take 1 tablet by oral route every day 30 6 05/31/2015 8 methotrexate 2.5 mg tablet take 8 tabs all at once, once a week 40 6 05/31/2015 7 ipratropium (ATROVENT) 0.06 % nasal spray spray 2 spray by intranasal route every day in each nostril 0 spray 0 09/26/2015 7 methylPREDNISolo ne (MEDROL, RADHA,) 4 mg tablet take by Oral route as directed on package 1 0 05/15/2012 7 montelukast (SINGULAIR) 10 mg tablet take 1 tablet by ORAL route every day prn 0 0 09/26/2015 7 omeprazole (PriLOSEC) 20 mg capsule TAKE [...] 04/25/2015 7 documented as of this encounter Plan of Treatment Not on file documented as of this encounter Procedures Procedure Name Priority Date/Time Associated Diagnosis Comments RENAL COMPUTED TOMOGRAPHY (CT) WITHOUT CONTRAST, STONE PROTOCOL Routine 06/08/2016 9:43 PM PRINTER FLOOR 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 SERUM ESTIMATED GLOMERULAR FILTRATION RATE Routine 06/08/2016 9:30 PM PRINTER FLOOR 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 PLASMA COMPREHENSIVE METABOLIC PANEL Routine 06/08/2016 9:30 PM PRINTER FLOOR 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 BLOOD CELL COUNT (CBC) Routine 7 9:30 PM PRINTER FLOOR 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 BLOOD CELL MORPHOLOGIC EXAM Routine 06/08/2016 9:30 PM PRINTER FLOOR 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 URINALYSIS Routine 06/08/2016 8:06 PM PRINTER FLOOR 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 DISCHARGE LABORATORY CUMULATIVE REPORT 06/08/2016 documented in this encounter Results * RENAL COMPUTED TOMOGRAPHY (CT) WITHOUT CONTRAST, STONE PROTOCOL (06/08/2016 9:43 PM PRINTER FLOOR 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) Anatomical Region Laterality Modality N/A Computed Tomogra phy 06/08/2016 9:43 PM PRINTER FLOOR 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 Narrative 06/09/2016 1:33 PM PRINTER FLOOR 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 ??[id number] ??Acc#: ??[id number] DATE OF EXAM: ??Jun ??2016 CLINICAL HISTORY: Abdominal pain. Right flank pain. RESULT: Helical CT scan of the abdomen and pelvis obtained modified for a stone protocol. No oral or IV contrast. Images begin just above the upper poles of the kidneys and extend to the ischial tuberosities. Compared with 09/16/2014. Small intrarenal calculi bilaterally, more so on the left than the right. These are nonobstructing. Findings suggest parapelvic cysts of the left kidney and possibly the right kidney. Similar appearance to the prior study. No ureteral calculus identified. No ureteral dilatation is evident. A cyst mid to lower pole right kidney measures 3 cm. A small opacity/protuberance from the posterolateral aspect of the left kidney between the mid and lower pole is unchanged from previously. This may represent a small cyst. Gallbladder unremarkable. Diminished attenuation of liver parenchyma consistent with hepatic steatosis. A small hypodense focus is seen left hepatic lobe lateral segment. Combination of findings supports cyst. Mild splenomegaly. Lack of intravenous contrast makes evaluation suboptimal of liver, spleen, pancreas and kidneys. Some colonic diverticulosis primarily descending and sigmoid colon. No definite evidence of diverticulitis. Evaluation of the gastrointestinal tract is limited without oral contrast. No significant small bowel dilatation identified. Some calcification of abdominal aorta and iliac arteries consistent with arteriosclerotic changes. Urinary bladder is underdistended. Evidence of some wall thickening of the urinary bladder, although this is underdistended. Some minimal adjacent stranding. This raises the possibility of inflammation, possible changes of cystitis. Small prostate calcifications are evident. Degenerative changes of lumbar spine and visualized portion of lower thoracic spine with spurring. IMPRESSION: 1. ??SMALL INTRARENAL CALCULI BILATERALLY, NONOBSTRUCTING. 2. ??NO URETERAL CALCULUS IDENTIFIED. NO URETERAL DILATATION IS EVIDENT. 3. ??UNDERDISTENTION OF THE URINARY BLADDER. EVIDENCE OF SIGNIFICANT WALL THICKENING OF THE URINARY BLADDER. SOME MINIMAL ADJACENT STRANDING, POSSIBLE INFLAMMATORY CHANGES. THIS COMBINATION OF FINDINGS RAISES THE POSSIBILITY OF CYSTITIS. 4. ??RIGHT RENAL CYST. FINDINGS SUGGEST PERIPELVIC LEFT KIDNEY AND POSSIBLY THE RIGHT KIDNEY. 5. ??MILD SPLENOMEGALY. 6. ??HEPATIC STEATOSIS. 7. ??SMALL HYPODENSE FOCUS LEFT HEPATIC LOBE. COMBINATION OF FINDINGS SUPPORT CYST. REPORT CALLED TO DR. LANGSTON 06/08/2016 AT 10:20 P.M. Interpreting Physician: ??BEV PANDYA M.D. ??Read on: ??Jun ??2016 10:26P Transcribed by: ??TXD ??On: Jun ??2016 ??9:02A Approved Electronically by: ??BEV PANDYA M.D. ??on: ??Jun ??2016 ??1:33P Attending: ??URIAH LANGSTON Requesting: ??URIAH LANGSTON Requesting Fax: ??-- Attending Fax: ??[phone] Attending ID: ??[id number] Requesting ID: ??[id number] Report To 1 ID: ??[id number] Report To 1 Name: ??URIAH LANGSTON Report To 1 FAX: ??-- NextGen Order #: Procedure Note Provider, MD Emmie - 10/10/[address] [place] [id number] Acc#: [id number] DATE OF EXAM: Jun 08 2016 CLINICAL HISTORY: Abdominal pain. Right flank pain. RESULT: Helical CT scan of the abdomen and pelvis obtained modified for a stoneprotocol. No oral or IV contrast. Images begin just above the upper polesof the kidneys and extend to the ischial tuberosities. Compared with09/16/2014. Small intrarenal calculi bilaterally, more so on the left thanthe right. These are nonobstructing. Findings suggest parapelvic cysts ofthe left kidney and possibly the right kidney. Similar appearance to theprior study. No ureteral calculus identified. No ureteral dilatation isevident. A cyst mid to lower pole right kidney measures 3 cm. A smallopacity/protuberance from the posterolateral aspect of the left kidneybetween the mid and lower pole is unchanged from previously. This mayrepresent a small cyst. Gallbladder unremarkable. Diminished attenuationof liver parenchyma consistent with hepatic steatosis. A small hypodensefocus is seen left hepatic lobe lateral segment. Combination of findingssupports cyst. Mild splenomegaly. Lack of intravenous contrast makes evaluation suboptimal of liver, spleen, pancreas andkidneys. Some colonic diverticulosis primarily descending and sigmoidcolon. No definite evidence of diverticulitis. Evaluation of thegastrointestinal tract is limited without oral contrast. No significantsmall bowel dilatation identified. Some calcification of abdominal aortaand iliac arteries consistent with arteriosclerotic changes. Urinarybladder is underdistended. Evidence of some wall thickening of the urinarybladder, although this is underdistended. Some minimal adjacent stranding.This raises the possibility of inflammation, possible changes of cystitis.Small prostate calcifications are evident. Degenerative changes of lumbarspine and visualized portion of lower thoracic spine with spurring. IMPRESSION: 1. SMALL INTRARENAL CALCULI BILATERALLY, NONOBSTRUCTING. 2. NO URETERAL CALCULUS IDENTIFIED. NO URETERAL DILATATION IS EVIDENT. 3. UNDERDISTENTION OF THE URINARY BLADDER. EVIDENCE OF SIGNIFICANT WALLTHICKENING OF THE URINARY BLADDER. SOME MINIMAL ADJACENT STRANDING,POSSIBLE INFLAMMATORY CHANGES. THIS COMBINATION OF FINDINGS RAISES THEPOSSIBILITY OF CYSTITIS. 4. RIGHT RENAL CYST. FINDINGS SUGGEST PERIPELVIC LEFT KIDNEY AND POSSIBLYTHE RIGHT KIDNEY. 5. MILD SPLENOMEGALY. 6. HEPATIC STEATOSIS. 7. SMALL HYPODENSE FOCUS LEFT HEPATIC LOBE. COMBINATION OF FINDINGSSUPPORT CYST. REPORT CALLED TO DR. LANGSTON 06/08/2016 AT 10:20 P.M. Interpreting Physician: BEV PANDYA M.D. Read on: Jun 08 2016 10:26P Transcribed by: STACIA On: Jun 09 2016 9:02A Approved Electronically by: BEV PANDYA M.D. on: Jun 09 2016 1:33P Attending: URIAH LANGSTON Requesting: URIAH LANGSTON Requesting Fax: -- Attending Attending ID: [id number] Requesting ID: [id number] Report To 1 ID: [id number] Report To 1 Name: URIAH LANGSTON Report To 1 FAX: -- [facility] Order #: us Historical Provider IMG CT PROCEDURES Final R esult * (ABNORMAL) Plasma comprehensive metabolic panel (06/08/2016 9:30 PM PRINTER FLOOR 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) Sodium 141 135 - 145 mmol/L CDR HISTORICAL RESULTS K, pl 3.8 3.5 - 5.1 mmol/L CDR HISTORICAL RESULTS Chloride 103 97 - 110 mmol/L CDR HISTORICAL RESULTS CO2 24 22 - 32 mmol/L CDR HISTORICAL RESULTS A. gap 14 8 - 16 mmol/L CDR HISTORICAL RESULTS Glucose 147 70 - 199 mg/dl CDR HISTORICAL RESULTS Comment: Interpretive Data Note:The glucose [...] data was last revised on 2014. BUN 22.0 8.0 - 25.0 mg/dl CDR HISTORICAL RESULTS Creatinine 0.94 0.70 - 1.30 mg/dl CDR HISTORICAL RESULTS BUN/creat ratio 23(H) 10 - 20 CDR HISTORICAL RESULTS Calcium 8.9 8.6 - 10.2 mg/dl CDR HISTORICAL RESULTS Protein, sr 6.6 6.0 - 8.4 g/dl CDR HISTORICAL RESULTS Alb 4.2 3.6 - 5.0 g/dl CDR HISTORICAL RESULTS Alk phos 52 40 - 130 Units/L CDR HISTORICAL RESULTS ALT 18 5 - 50 Units/L CDR HISTORICAL RESULTS AST 23 10 - 45 Units/L CDR HISTORICAL RESULTS Comment:Hemolysis present. R esults may be affected. Bilirubin 0.3 <=1.2 mg/dl CDR HISTORICAL RESULTS Plasma 06/08/2016 9:30 PM PRINTER FLOOR 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 Historical Provider LAB BLOOD ORDERABLES Mariaa l Result CDR HISTORICAL RESULTS * Blood cell count (CBC) (06/08/2016 9:30 PM PRINTER FLOOR 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) WBC 5.2 3.8 - 9.8 K/cumm CDR HISTORICAL RESULTS RBC 5.02 4.50 - 5.70 M/cumm CDR HISTORICAL RESULTS Hgb 15.6 13.8 - 17.2 g/dl CDR HISTORICAL RESULTS Hct 44.7 40.7 - 50.3 % CDR HISTORICAL RESULTS MCV 89.0 80.0 - 100.0 fl CDR HISTORICAL RESULTS MCH 31.1 26.7 - 33.7 pg CDR HISTORICAL RESULTS MCHC 34.9 32.7 - 36.0 g/dl CDR HISTORICAL RESULTS Rdw 12.9 11.5 - 14.6 % CDR HISTORICAL RESULTS Platelets 147 140 - 440 K/cumm CDR HISTORICAL RESULTS MPV 10.5 8.0 - 12.0 fl CDR HISTORICAL RESULTS NRBC 0.0 0.0 - 0.0 % CDR HIST ORICAL RESULTS NRBC, abs 0.00 0.00 - 0.00 K/cumm CDR HISTORICAL RESULTS Blood specimen (specimen) 06/08/2016 9:30 PM PRINTER FLOOR 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 us Historical Provider LAB BLOOD ORDERABLES Mariaa rosado Result CDR HISTORICAL RESULTS * (ABNORMAL) Blood cell morphologic exam (06/08/2016 9:30 PM PRINTER FLOOR 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) Neutrophils 61.1 44.0 - 80.0 % CDR HISTORICAL RESULTS Immature granulocytes 0.2 0.0 - 1.0 % CDR HISTORICAL RESULTS Lymphocytes 22.8 13.0 - 44.0 % CDR HISTORICAL RESULTS Monos 8.1 2.0 - 11.0 % CDR HISTORICAL RESULTS Eosinophils 7.2(H) 0.0 - 6.0 % CDR HISTORICAL RESULTS Basophils 0.6 0.0 - 3.0 % CDR HISTORICAL RESULTS Neutrophils, abs 3.2 1.6 - 7.0 K/cumm CDR HISTORICAL RESULTS Immature granulocyte, abs 0.0 0.0 - 0.2 K/cumm CDR HISTORICAL RESULTS Lymphocytes, abs 1.2 0.5 - 4.3 K/cumm CDR HISTORICAL RESULTS Monocytes, absolute 0.4 0.1 - 1.0 K/cumm CDR HISTORICAL RESULTS Eosinophils, abs 0.4 0.0 - 0.6 K/cumm CDR HISTORICAL RESULTS Basophils, abs 0.0 0.0 - 0.3 K/cumm CDR HISTORICAL RESULTS Blood specimen (specimen) 06/08/2016 9:30 PM PRINTER FLOOR 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 us Historical Provider LAB BLOOD ORDERABLES Mariaa rosado Result Performing Organization Address [facility] de Phone Number CDR HISTORICAL RESULTS * Serum estimated glomerular filtration rate (06/08/2016 9:30 PM PRINTER FLOOR 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) eGFR >60 ml/min/1.7 3 m2 CDR HISTORICAL RESULTS Comment: Interpretive Data Reference Interval Normal ?>/= 90 mL/min/1.73m2 Mildly decreased* ? 60 - 89 mL/min/1.73m2 Mildly to moderately decreased ?45 - 59 mL/min/1.73m2 Moderately to severely decreased ??30 - 44 mL/min/1.73m2 Severely decreased ?15 - 29 mL/min/1.73m2 Kidney Failure ?< 15 ??mL/min/1.73m2 *Relative to young adult level If -Polish multiply value by 1.16. Estimated glomerular filtration [...] Current interpretive data was last reviewed 2015. Serum 06/08/2016 9:30 PM PRINTER FLOOR 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 us Historical Provider LAB BLOOD ORDERABLES Mariaa rosado Result Performing Organization Address [facility] Co de Phone Number CDR HISTORICAL RESULTS * Urinalysis (06/08/2016 8:06 PM PRINTER FLOOR 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) Color, ur Yellow Yellow CDR HISTOR ICAL RESULTS Clarity, ur Clear Clear CDR HIST ORICAL RESULTS Specific gravity, ur 1.026 1.003 - 1.030 CDR HISTORICAL RESULTS Comment:Normal Ranges: 1.003 -1.030 pH, ur 5.0 4.5 - 8.0 CDR HISTOR ICAL RESULTS Comment:Normal ranges: 4.5-8 .0 Protein, ur, quant Negative Negative mg/dl CDR HISTORICAL RESULTS Glucose, ur, quant Negative Negative mg/dl CDR HISTORICAL RESULTS Ketones, ur Negative Negative CDR HIST ORICAL RESULTS Bilirubin, ur Negative Negative CDR HI STORICAL RESULTS U Blood Negative Negative CDR HISTOR ICAL RESULTS Urobilinogen, quant, ur 0.2 0.2 - 1.0 Charles Units/dl CDR HISTORICAL RESULTS Comment:Normal Ranges: 0.2-1 .0 EU/dL Nitrites, ur Negative Negative CDR HIS TORICAL RESULTS Leukocyte esterase, ur Negative Negative CDR HISTORICAL RESULTS Urine 06/08/2016 8:06 PM PRINTER FLOOR 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 Historical Provider LAB BLOOD ORDERABLES Mariaa l Result CDR HISTORICAL RESULTS * DISCHARGE LABORATORY CUMULATIVE REPORT (06/08/2016) Narrative 06/08/2016 Ordered by an unspecified provider. us Historical Provider MD LAB BLOOD ORDERABLES Mariaa l Result documented in this encounter Visit Diagnoses Diagnosis Abdominal pain Abdominal pain, unspecified site Gastro-esophageal reflux disease without esophagitis Personal history of urinary calculi documented in this encounter Care Teams Railroad Yard Worker Relationship Specialty Start Date End Date Alberto Stanton PCP - General 07/03/11 08/30/16 documented as of this encounter
--- OUTSIDE RECORDS SUMMARY | 2024-06-14 16:53 | XMS_ITS | Encounter Summary ---
Author Organization [facility] Address [address] [place] [address] Care Team Providers Care Travel Registered Nurse Oncology Name Role Phone Alberto Stanton Primary Care Provider Unavailabl e Encounter Details Date Type Department Care Team (Late st Contact Info) Description 10/06/2016 Orders Only [facility] [address] [place] [address] [address] [place] [id number] Jimenez Mckeon MD [address] [address] Social History Tobacco Use Types Packs/Day Years Used Date Smoking Tobacco: Heavy Smoker Comments:Smoking History Pac ks/day: 2 Packs Alcohol Use Standard Drinks/Week Comments No 0 (1 standard drink = 0.6 oz pur e alcohol) Sex and Gender Information Value Date Recorded Sex Assigned at Not on file Legal 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 Gender Identity Not on file Sexual Orientation Not on file documented as of this encounter Plan of Treatment Not on file documented as of this encounter Procedures Procedure Name Priority Date/Time Associated Diagnosis Comments COMPREHENSIVE METABOLIC PANEL STAT 10/06/2016 8:21 AM CDT documented in this encounter Results * Comprehensive metabolic panel (10/06/2016 8:21 AM CDT) Sodium 142 135 - 145 mmol/L [facility] ([facility]) Potassium 4.2 3.5 - 5.1 mmol/L [facility] ([facility]) Chloride 104 97 - 110 mmol/L [facility] ([facility]) CO2 28 22 - 32 mmol/L [facility] ([facility]) Anion gap 10 8 - 16 mmol/L [facility] ([facility]) Glucose 117 70 - 199 mg/dL [facility] ([facility]) Comment: Interpretive Data Note:The glucose is assumed non fasting Fastin-99 mg/dL Random: ??70-199 mg/dL Either a fasting glucose > 126 mg/dL or a random glucose > 200 mg/dL plus symptoms is diagnostic of diabetes when confirmed on another day. Fasting values > 100 mg/dL but < 125 mg/dL are diagnostic of impaired fasting glucose. Current interpretive data was last revised on 2014. BUN 13.7 8.0 - 25.0 mg/dL [facility] ([facility]) Creatinine 1.22 0.70 - 1.30 mg/dL [facility] ([facility]) BUN/creat ratio 11 10 - 20 [facility] ([facility]) Calcium 9.9 8.6 - 10.2 mg/dL [facility] ([facility]) Protein, sr 6.8 6.0 - 8.4 g/dL [facility] ([facility]) Albumin 4.2 3.6 - 5.0 g/dL [facility] ([facility]) Alk phos 52 40 - 130 Units/L [facility] ([facility]) ALT 20 5 - 50 Units/L [facility] ([facility]) AST 17 10 - 45 Units/L [facility] ([facility]) Bilirubin, total 0.7 <=1.2 mg/dL [facility] ([facility]) Blood specimen (specimen) 10/06/2016 8:21 AM CDT 10/06/2016 8:24 AM CDT us Jimenez Mckeon MD LAB BLOOD ORDERABLES Final Res ult [facility] ([facility]) 1 [facility] of [facility] [place], [place] [id number] documented in this encounter Visit Diagnoses Not on filedocumented in this encounter Care Teams Travel Registered Nurse Oncology Relationship Specialty Start Date End Date Alberto Stanton PCP - General 08/31/16 05/01/17 documented as of this encounter
--- OUTSIDE RECORDS SUMMARY | 2024-06-14 16:53 | XMS_ITS | Encounter Summary ---
Author Organization [facility] Facility Care Team Providers Care Electrical Software Engineer Name Role Phone Alberto Stanton Primary Care Provider Unavailabl e Encounter Details Date Type Department Care Team (Latest Contact Info) Description 09/08/2010 7:01 AM CDT - 09/08/2010 4:00 PM CDT Hospital Encounter [facility] CLINCONV Michael Johnson MD [address] [address] Chest pain; Coronary atherosclerosis of [place] coronary artery; Stricture of artery (CMS/HCC) (HCC) Social History Tobacco Use Types Packs/Day Years Used Date Smoking Tobacco: Never Assessed Sex and Gender Information Value Date Recorded Sex Assigned at Not on file Legal Sex Male 12:56 AM OPERATING ROOM ORDERLY Gender Identity Not on file Sexual Orientation [...] as of this encounter Visit Diagnoses Diagnosis Chest pain Unspecified chest pain 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
--- OUTSIDE RECORDS SUMMARY | 2024-06-14 16:53 | XMS_ITS | Encounter Summary ---
Author Organization [facility] Healthcare Address [address] [place] [address] Care Team Providers Care Sales Service Assistant Name Role Phone Alberto Stanton Primary Care Provider Unavailabl e Encounter Details Date Type Department Care Team (Late st Contact Info) Description 11/13/2011 9:55 AM CDT - 11/13/2011 12:40 PM CDT Hospital Encounter [facility] Kevin Jarquin MD [address] [place] [address] [address] [place] [address] Special screening for malignant neoplasms, colon; Internal hemorrhoids; Esophageal reflux Social History Tobacco Use Types Packs/Day Years Used Date Smoking Tobacco: Heavy Smoker Comments:Smoking History Pac ks/day: 2 Packs Alcohol Use Standard Drinks/Week Comments Yes 0 (1 standard drink = 0.6 oz pur e alcohol) Sex and Gender Information Value Date Recorded Sex Assigned at Not on file Legal 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 Admit Date: 11/13/2011 Dict.: Kevin Carpio M.D. Disch. Date: 11/13/2011 PROCEDURE PERFORMED: Colonoscopy. HISTORY: 66-year-old male with reflux symptomatology and needs a screening colonoscopy and has had symptomatic hemorrhoidal disease treated by [facility] in 2008. PHYSICAL EXAMINATION: Well-developed male. Lungs are clear. Cardiovascular examination was unremarkable. PROCEDURE: Colonoscopy was performed with the Leapfunder video endoscope. On digital exam he has grade III hemorrhoids. We inserted the endoscope and advanced it to the cecum. The colon was well prepped, well visualized and normal. We brought the scope back, retroflexed in the rectum, examined the hemorrhoidal tissue internally, then straightened the scope and removed it. The patient tolerated the procedure without difficulty. POSTOPERATIVE DIAGNOSIS: Hemorrhoidal disease, otherwise normal. Kevin Carpio M.D. DR/lanny Ocasio #: [id number] TD: 11/14/2011 11:01 CC: Alberto Stanton M.D. Authenticated by Kevin Carpio MD On 11/15/2011 11:45:52 AM documented in this encounter Plan of Treatment Not on file documented as of this encounter Procedures Procedure Name Priority Date/Time Associated Diagnosis Comments COLONOSCOPY 11/13/2011 12:00 AM CDT documented in this encounter Results * COLONOSCOPY (11/13/2011 12:00 AM CDT) Anatomical Region Laterality Modality Other Narrative 11/13/2011 12:00 AM CDT Ordered by an unspecified provider. Procedure Note Provider, MD Emmie - 11/13/2011 12:00 AM CDT PROCEDURE REPORT Patient: SAMUEL HUFFMAN Account: [id number] Room No: : 1945 Patient Type: SDS Attend.: Kevin Carpio M.D. Admit Date: 11/13/2011 Dict.: Kevin Carpio M.D. Disch. Date:11/13/2011 PROCEDURE PERFORMED: Colonoscopy. HISTORY: 66-year-old male with reflux symptomatology and needs ascreening colonoscopy and has had symptomatic hemorrhoidal disease treated by [facility] [id number]. PHYSICAL EXAMINATION: Well-developed male. Lungs are clear.Cardiovascular examination was unremarkable. PROCEDURE: Colonoscopy was performed with the Leapfunder video endoscope.On digital exam he has grade III hemorrhoids. We inserted the endoscopeand advanced it to the cecum. The colon was well prepped, well visualizedand normal. We brought the scope back, retroflexed in the rectum, examinedthe hemorrhoidal tissue internally, then straightened the scope and removedit. The patient tolerated the procedure without difficulty. POSTOPERATIVE DIAGNOSIS: Hemorrhoidal disease, otherwise normal. Kevin Carpio M.D. DR/lanny TD: 11/14/2011 11:01 CC: Alberto Stanton M.D. Authenticated by Kevin Carpio MD On 11/15/2011 11:45:52 AM us Historical Provider ENDOSCOPY PROCEDURES Mariaa l Result documented in this encounter Visit Diagnoses Diagnosis Special screening for malignant neoplasms, colon Internal hemorrhoids Internal hemorrhoids without mention of complication Esophageal reflux documented in this encounter Care Teams Sales Service Assistant Relationship Specialty Start Date End Date Alberto Stanton PCP - General 07/03/11 08/30/16 documented as of this encounter
--- OUTSIDE RECORDS SUMMARY | 2024-06-14 16:53 | XMS_ITS | Encounter Summary ---
Author Organization [facility] Healthcare Address [address] [place] [address] Care Team Providers Care Blood Bank Laboratory Technologist Name Role Phone Alberto Stanton Primary Care Provider Unavailabl e Encounter Details Date Type Department Care Team (Late st Contact Info) Description 10/23/2011 10:44 AM CDT - 10/23/2011 11:59 PM CDT Hospital Encounter [facility] Alberto Stanton Cough; Aortic ectasia (HCC) Social History Tobacco Use Types Packs/Day Years Used Date Smoking Tobacco: Heavy Smoker Comments:Smoking History Pac ks/day: 2 Packs Alcohol Use Standard Drinks/Week Comments Yes 0 (1 standard drink = 0.6 oz pur e alcohol) Sex and Gender Information Value Date Recorded Sex Assigned at Not on file Legal Sex Male 12:56 AM COAL WEIGHER Gender Identity Not on file Sexual Orientation [...] as of this encounter Visit Diagnoses Diagnosis Cough Aortic ectasia (HCC) Aortic aneurysm of unspecified site without mention of rupture documented in this encounter Care Teams Blood Bank Laboratory Technologist Relationship Specialty Start Date End Date Alberto Stanton PCP - General 07/03/11 08/30/16 documented as of this encounter
--- OUTSIDE RECORDS SUMMARY | 2024-06-14 16:53 | XMS_ITS | Encounter Summary ---
Author Organization [facility] Address [address] [place] [address] Care Team Providers Care Material Worker Name Role Phone Alberto Stanton Primary Care Provider Unavailabl e Encounter Details Date Type Department Care Team (Late st Contact Info) Description 10/06/2016 Orders Only [facility] [address] [place] [address] 1[address] [place] [address] Jimenez Mckeon MD [address] [address] Social History Tobacco Use Types Packs/Day Years Used Date Smoking Tobacco: Heavy Smoker Comments:Smoking History Pac ks/day: 2 Packs Alcohol Use Standard Drinks/Week Comments No 0 (1 standard drink = 0.6 oz pur e alcohol) Sex and Gender Information Value Date Recorded Sex Assigned at Not on file Legal Sex Male 12:56 AM CHIEF INVESTMENT OFFICER Gender Identity Not on file Sexual Orientation Not on file documented as of this encounter Plan of Treatment Not on file documented as of this encounter Procedures Procedure Name Priority Date/Time Associated Diagnosis Comments EGFR STAT 10/06/2016 8:21 AM CDT documented in this encounter Results * eGFR (10/06/2016 8:21 AM CDT) eGFR 58 mL/min/1.7 3 m2 [facility] ([facility]) Comment: Interpretive Data Reference Interval Normal ?>/= 90 mL/min/1.73m2 Mildly decreased* ? 60 - 89 mL/min/1.73m2 Mildly to moderately decreased ?45 - 59 mL/min/1.73m2 Moderately to severely decreased ??30 - 44 mL/min/1.73m2 Severely decreased ?15 - 29 mL/min/1.73m2 Kidney Failure ?< 15 ??mL/min/1.73m2 *Relative to young adult level If -Indonesian multiply value by 1.16. Estimated glomerular filtration [...] was last reviewed 2015. Blood specimen (specimen) 10/06/2016 8:21 AM CDT 10/06/2016 8:24 AM CDT us Jimenez Mckeon MD LAB BLOOD ORDERABLES Final Res ult Performing Organization Address City/State/[facility] Co de Phone Number [facility] 1 [facility] Department of Laboratories [place], [place] [id number] documented in this encounter Visit Diagnoses Not on filedocumented in this encounter Care Teams Material Worker Relationship Specialty Start Date End Date Alberto Stanton PCP - General 08/31/16 05/01/17 documented as of this encounter
--- OUTSIDE RECORDS SUMMARY | 2024-06-14 16:53 | XMS_ITS | Encounter Summary ---
Author Organization [facility] Address [address] [place] [address] Care Team Providers Care Wardrobe Stylist Name Role Phone Alberto Stanton Primary Care Provider Unavailabl e Encounter Details Date Type Department Care Team (Late st Contact Info) Description 10/06/2016 Orders Only [facility] [address] [place] [address] 1[address] [place] [phone] Jimenez Mckeon MD [address] [address] Social History Tobacco Use Types Packs/Day Years Used Date Smoking Tobacco: Heavy Smoker Comments:Smoking History Pac ks/day: 2 Packs Alcohol Use Standard Drinks/Week Comments No 0 (1 standard drink = 0.6 oz pur e alcohol) Sex and Gender Information Value Date Recorded Sex Assigned at Not on file Legal Sex Male 12:56 AM 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 Gender Identity Not on file Sexual Orientation Not on file documented as of this encounter Plan of Treatment Not on file documented as of this encounter Procedures Procedure Name Priority Date/Time Associated Diagnosis Comments CBC WITH AUTO DIFFERENTIAL STAT 10/06/2016 8:21 AM CDT documented in this encounter Results * CBC with auto differential (10/06/2016 8:21 AM CDT) WBC 5.07 3.80 - 9.80 K/cumm [facility] ([facility]) RBC 5.09 4.50 - 5.70 M/cumm [facility] ([facility]) Hgb 16.5 13.8 - 17.2 g/dL [facility] ([facility]) Hct 47.0 40.7 - 50.3 % [facility] ([facility]) MCV 92.3 80.0 - 100.0 fL [facility] ([facility]) MCH 32.4 26.7 - 33.7 pg [facility] ([facility]) MCHC 35.1 32.7 - 36.0 g/dL [facility] ([facility]) RDW CV 12.8 11.5 - 14.6 % [facility] ([facility]) Plt 156 140 - 440 K/cumm [facility] ([facility]) MPV 10.4 8.0 - 12.0 fL [facility] ([facility]) NRBC 0.0 0.0 - 0.0 % [facility] ([facility]) NRBC abs 0.00 0.00 - 0.00 K/cumm [facility] ([facility]) Blood specimen (specimen) 10/06/2016 8:21 AM CDT 10/06/2016 8:24 AM CDT us Jimenez Mckeon MD LAB BLOOD ORDERABLES Final Res ult [facility] ([facility]) 1 [facility] Department [place] [employer] [address] documented in this encounter Visit Diagnoses Not on filedocumented in this encounter Care Teams Wardrobe Stylist Relationship Specialty Start Date End Date Alberto Stanton PCP - General 08/31/16 05/01/17 documented as of this encounter
--- OUTSIDE RECORDS SUMMARY | 2024-06-14 16:53 | XMS_ITS | Encounter Summary ---
Author Organization [facility] Healthcare Address [address] [place] [address] Care Team Providers Care Command Center Officer Name Role Phone Alberto Stanton Primary Care Provider Unavailabl e Encounter Details Date Type Department Care Team (Late st Contact Info) Description 05/22/2011 10:31 AM ELECTRONIC INTEGRATED SYSTEMS MECHANIC - 05/22/2011 11:59 PM ELECTRONIC INTEGRATED SYSTEMS MECHANIC Hospital Encounter [facility] Alberto Stanton Weight loss Social History Tobacco Use Types Packs/Day Years Used Date Smoking Tobacco: Never Assessed Sex and Gender Information Value Date Recorded Sex Assigned at Not on file Legal Sex Male 12:56 AM ELECTRONIC INTEGRATED SYSTEMS MECHANIC Gender Identity Not on file Sexual [...] as of this encounter Visit Diagnoses Diagnosis Weight loss Loss of weight documented in this encounter Care Teams Command Center Officer Relationship Specialty Start Date End Date Alberto Stanton PCP - General 02/22/10 07/02/11 documented as of this encounter
--- OUTSIDE RECORDS SUMMARY | 2024-06-14 16:53 | XMS_ITS | Encounter Summary ---
Author Organization [facility] Address [address] [place] [address] Care Team Providers Care Price Lister Name Role Phone Alberto Stanton Primary Care Provider Unavailabl e Encounter Details Date Type Department Care Team (Late st Contact Info) Description 10/06/2016 Orders Only [facility] [address] [place] [address] 1[address] [place] [phone] Jimenez Mckeon MD [address] [place] [address] Social History Tobacco Use Types Packs/Day Years Used Date Smoking Tobacco: Heavy Smoker Comments:Smoking History Pac ks/day: 2 Packs Alcohol Use Standard Drinks/Week Comments No 0 (1 standard drink = 0.6 oz pur e alcohol) Sex and Gender Information Value Date Recorded Sex Assigned at Not on file Legal Sex Male 12:56 AM 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0 - 6.0 % [facility] ([facility]) Basophil pct 0.6 0.0 - 3.0 % [facility] ([facility]) Neutrophil abs 2.88 1.60 - 7.00 K/cumm [facility] ([facility]) Imm gran abs 0.01 0.00 - 0.20 K/cumm [facility] ([facility]) Lymphocyte abs 1.39 0.50 - 4.30 K/cumm [facility] ([facility]) Monocyte abs 0.39 0.10 - 1.00 K/cumm [facility] ([facility]) Eosinophil abs 0.37 0.00 - 0.60 K/cumm [facility] ([facility]) Basophil abs 0.03 0.00 - 0.30 K/cumm [facility] ([facility]) Blood specimen (specimen) 10/06/2016 8:21 AM CDT 10/06/2016 8:24 AM CDT us Jimenez Mckeon MD LAB BLOOD ORDERABLES Final Res ult [facility] ([facility]) 1 [facility] Department [place] [address] documented in this encounter Visit Diagnoses Not on filedocumented in this encounter Care Teams Price Lister Relationship Specialty Start Date End Date Alberto Stanton PCP - General 08/31/16 05/01/17 documented as of this encounter
--- OUTSIDE RECORDS SUMMARY | 2024-06-14 16:53 | XMS_ITS | Encounter Summary ---
Author Organization [facility] Healthcare Address [address] [place] [address] Care Team Providers Care Sound Designer Name Role Phone Alberto Stanton Primary Care Provider Unavailabl e Encounter Details Date Type Department Care Team (Late st Contact Info) Description 05/20/2012 1:25 AM CHILD PROTECTIVE SERVICES SOCIAL WORKER - 05/20/2012 4:05 AM CHILD PROTECTIVE SERVICES SOCIAL WORKER Hospital Encounter [facility] Behzad Jeffries MD [address] [place] [address] Sciatica Social History Tobacco Use Types Packs/Day Years Used Date Smoking Tobacco: Heavy Smoker Comments:Smoking History Pac ks/day: 2 Packs Alcohol Use Standard Drinks/Week Comments Yes 0 (1 standard drink = 0.6 oz pur e alcohol) Sex and Gender Information Value Date Recorded Sex Assigned at Not on file Legal Sex Male 12:56 AM CHILD PROTECTIVE SERVICES SOCIAL WORKER Gender Identity Not on file Sexual [...] Sciatica documented in this encounter Care Teams Sound Designer Relationship Specialty Start Date End Date Alberto Stanton PCP - General 07/03/11 08/30/16 documented as of this encounter
--- OUTSIDE RECORDS SUMMARY | 2024-06-14 16:53 | XMS_ITS | Encounter Summary ---
Author Organization [facility] Healthcare Address [address] [place] [address] Care Team Providers Care Clinic Clerk Name Role Phone Alberto Stanton Primary Care Provider Unavailabl e Encounter Details Date Type Department Care Team (Late st Contact Info) Description 04/04/2012 11:16 AM CDT - 04/04/2012 11:59 PM CDT Hospital Encounter [facility] Alberto Stanton Aneurysm of thoracic aorta (HCC); Abdominal aortic ectasia (CMS/HCC) (HCC); Solitary pulmonary nodule; Atherosclerosis of other specified arteries Social History Tobacco Use Types Packs/Day Years Used Date Smoking Tobacco: Heavy Smoker Comments:Smoking History Pac ks/day: 2 Packs Alcohol Use Standard Drinks/Week Comments Yes 0 (1 standard drink = 0.6 oz pur e alcohol) Sex and Gender Information Value Date Recorded Sex Assigned at Not on file Legal Sex Male 12:56 AM BIOLOGY SPECIALIST Gender Identity Not on file Sexual [...] as of this encounter Visit Diagnoses Diagnosis Aneurysm of thoracic aorta (HCC) Thoracic aneurysm without mention of rupture Abdominal aortic ectasia (CMS/HCC) (HCC) Abdominal aortic ectasia Solitary pulmonary nodule Atherosclerosis of other specified arteries documented in this encounter Care Teams Clinic Clerk Relationship Specialty Start Date End Date Alberto Stanton PCP - General 07/03/11 08/30/16 documented as of this encounter
--- OUTSIDE RECORDS SUMMARY | 2024-06-14 16:53 | XMS_ITS | Encounter Summary ---
Author Organization [facility] Healthcare Address [address] [place] [address] Care Team Providers Care Assistant Men'S Soccer Coach Name Role Phone Alberto Stanton Primary Care Provider Unavailabl e Encounter Details Date Type Department Care Team (Late st Contact Info) Description 01/08/2012 9:53 AM CDT - 01/08/2012 11:00 AM CDT Hospital Encounter [facility] Kevin Jarquin MD [address] [place] [address] [address] [place] [address] Hemorrhoids; Procedure not carried out for other reasons Social History Tobacco Use Types Packs/Day Years Used Date Smoking Tobacco: Heavy Smoker Comments:Smoking History Pac ks/day: 2 Packs Alcohol Use Standard Drinks/Week Comments Yes 0 (1 standard drink = 0.6 oz pur e alcohol) Sex and Gender Information Value Date Recorded Sex Assigned at Not on file Legal Sex Male 12:56 AM WORKFORCE PLANNING ANALYST Gender Identity Not on file Sexual [...] as of this encounter Visit Diagnoses Diagnosis Hemorrhoids Procedure not carried out for other reasons documented in this encounter Care Teams Assistant Men'S Soccer Coach Relationship Specialty Start Date End Date Alberto Stanton PCP - General 07/03/11 08/30/16 documented as of this encounter
--- OUTSIDE RECORDS SUMMARY | 2024-06-14 16:53 | XMS_ITS | Encounter Summary ---
Author Organization [facility] Healthcare Address [address] [place] [address] Care Team Providers Care Green Chain Worker Name Role Phone Hernando De La Cruz Primary Care Provider Unavailabl e Encounter Details Date Type Department Care Team (Late st Contact Info) Description 07/03/2013 11:02 AM TREATING PLANT SUPERVISOR - 07/03/2013 11:59 PM TREATING PLANT SUPERVISOR Hospital Encounter [facility] CLINCONV Hernando De La Cruz Weight loss; Disorder of arteries and arterioles (HCC); Other and unspecified hyperlipidemia; Esophageal reflux; Special screening for malignant neoplasm of prostate; Screening for lipoid disorders; Rash and other nonspecific skin eruption Social History Tobacco Use Types Packs/Day Years Used Date Smoking Tobacco: Heavy Smoker Comments:Smoking History Pac ks/day: 2 Packs Alcohol Use Standard Drinks/Week Comments Yes 0 (1 standard drink = 0.6 oz pur e alcohol) Sex and Gender Information Value Date Recorded Sex Assigned at Not on file Legal Sex Male 12:56 AM TREATING PLANT SUPERVISOR Gender Identity Not on file Sexual [...] Procedure Name Priority Date/Time Associated Diagnosis Comments SERUM THYROXINE (T4), FREE Routine 07/03/2013 11:13 AM TREATING PLANT SUPERVISOR SERUM THYROID-STIMULATING HORMONE (TSH) Routine 07/03/2013 11:13 AM TREATING PLANT SUPERVISOR SERUM PROSTATE-SPECIFIC ANTIGEN (PSA) Routine 07/03/2013 11:13 AM TREATING PLANT SUPERVISOR SERUM LIPID PANEL Routine 07/03/2013 11: 13 AM TREATING PLANT SUPERVISOR SERUM HEPATIC FUNCTION PANEL Routine 07/03/2013 11:13 AM TREATING PLANT SUPERVISOR SERUM BASIC METABOLIC PANEL Routine 07/03/2013 11:13 AM TREATING PLANT SUPERVISOR BLOOD WBC CELL MORPHOLOGIC EXAM, AUTO Routine 07/03/2013 11:13 AM TREATING PLANT SUPERVISOR BLOOD ERYTHROCYTE SEDIMENTATION RATE (ESR) Routine 07/03/2013 11:13 AM TREATING PLANT SUPERVISOR BLOOD CELL COUNT (CBC) Routine 4 11:13 AM TREATING PLANT SUPERVISOR DISCHARGE LABORATORY CUMULATIVE REPORT Routine 07/03/2013 12:00 AM TREATING PLANT SUPERVISOR documented in this encounter Results * Blood erythrocyte sedimentation rate (ESR) (07/03/2013 11:13 AM TREATING PLANT SUPERVISOR) Erythrocyte sedimentation rate 1.0 0.0 - 20.0 mm/hr HISTORICAL RESULTS Blood specimen (specimen) 07/03/2013 11:13 AM TREATING PLANT SUPERVISOR us Hernando De La Cruz LAB BLOOD ORDERABLES Final Resul t HISTORICAL RESULTS * Serum thyroid-stimulating hormone (TSH) (07/03/2013 11:13 AM TREATING PLANT SUPERVISOR) TSH 0.41 0.35 - 4.80 mcIUnits/ml HISTORICAL RESULTS Serum 07/03/2013 11:1 3 AM TREATING PLANT SUPERVISOR Hernando Chan LAB BLOOD ORDERABLES Final Resul t HISTORICAL RESULTS * Serum prostate-specific antigen (PSA) (07/03/2013 11:13 AM TREATING PLANT SUPERVISOR) PSA 2.0 0.0 - 4.0 ng/ml HISTORICAL RESULTS Serum 07/03/2013 11:1 3 AM TREATING PLANT SUPERVISOR Hernando Chan LAB BLOOD ORDERABLES Final Resul t Performing Organization Address [facility] Co de Phone Number HISTORICAL RESULTS * Serum basic metabolic panel (07/03/2013 11:13 AM TREATING PLANT SUPERVISOR) BUN 22.0 6.0 - 23.0 mg/dl HISTORICAL RESULTS Sodium 139 134 - 143 mmol/L HISTORICAL RESULTS Potassium, sr 3.8 3.4 - 5.0 mmol/L HISTORICAL RESULTS Chloride 105 99 - 108 mmol/L HISTORICAL RESULTS CO2 25 23 - 32 mmol/L HISTORICAL RESULTS Glucose 108 70 - 199 mg/dl HISTORICAL RESULTS Comment: Note:The glucose is assumed non fasting Fastin-99 mg/dl Random: 70-199 mg/dl Either a fasting glucose > 126 mg/dL or a random glucose > 200 mg/dL plus symptoms is diagnostic of diabetes when confirmed on another day. Fasting values > 100 mg/dl but < 125 mg/dL are diagnostic of impaired fasting glucose. New reference ranges implemented 04/13/2013. Creatinine 1.23 0.60 - 1.30 mg/dl HISTORICAL RESULTS BUN/creat ratio 18 10 - 20 HIST ORICAL RESULTS A. gap 12 7 - 14 mmol/L HISTORICAL RESULTS Osmo, calc 281 280 - 301 mOsm/kg HISTORICAL RESULTS Calcium 9.0 8.6 - 9.8 mg/dl HISTORICAL RESULTS Serum 07/03/2013 11:1 3 AM TREATING PLANT SUPERVISOR Hernando Chan LAB BLOOD ORDERABLES Final Resul t Performing Organization Address City/[facility]/ZIP Co de Phone Number HISTORICAL RESULTS * Serum lipid panel (07/03/2013 11:13 AM TREATING PLANT SUPERVISOR) Cholesterol 162 mg/dl HISTORIC AL RESULTS Comment: DESIRABLE = LESS THAN 200 MG/DL BORDERLINE HIGH = 200-239 MG/DL HIGH= GREATER THAN 239 MG/DL Triglycerides 73 mg/dl HISTOR ICAL RESULTS Comment: Current guidelines recommend that lipid screen be performed on fasting blood samples for heart risk stratification. NORMAL = LESS THAN 150 MG/DL BORDERLINE HIGH = 150-199 MG/DL HIGH = 200-499 MG/DL VERY HIGH = GREATER THAN OR EQUAL TO 500 MG/DL HDL 41 mg/dl HISTORICAL RESULTS Comment: LOW HDL CHOLESTEROL = Less than 40 mg/dL NORMAL HDL CHOLESTEROL = 40-59 mg/dL HIGH HDL CHOLESTEROL = Greater than 59 mg/dL Non-HDL cholesterol, calculated 121 mg/dl HISTORICAL RESULTS Comment: OPTIMAL LESS THAN 130 LOW RISK 130 -159 MODERATE RISK 160 - 189 HIGH RISK GREATER THAN OR EQUAL TO 190 LDL, calculated 106 HIST ORICAL RESULTS Comment: LESS THAN 100 MG/DL OPTIMAL 100 - 129 MG/DL NEAR OPTIMAL / ABOVE OPTIMAL 130 - 159 MG/DL BORDERLINE HIGH 160 - 189 MG/DL HIGH GREATER THAN OR = 190 MG/DL VERY HIGH LDL VALUES ARE NOT VALID WHEN THE TOTAL TRIGLYCERIDE IS GREATER THAN 300 MG/DL. Serum 07/03/2013 11:1 3 AM TREATING PLANT SUPERVISOR Hernando Raheem Dustin LAB BLOOD ORDERABLES Final Resul t Performing Organization Address City/[facility] Co de Phone Number HISTORICAL RESULTS * Serum thyroxine (T4), free (07/03/2013 11:13 AM TREATING PLANT SUPERVISOR) Pathologist [facility] Free T4 0.8 0.7 - 1.3 ng/dl HISTORICAL RESULTS Serum 07/03/2013 11:1 3 AM TREATING PLANT SUPERVISOR Hernando [employer] LAB BLOOD ORDERABLES Final Resul t HISTORICAL RESULTS * (ABNORMAL) Blood cell count (CBC) (07/03/2013 11:13 AM TREATING PLANT SUPERVISOR) WBC 11.8(H) 4.0 - 10.5 K/cumm HISTORICAL RESULTS RBC 5.16 4.60 - 6.20 M/cumm HISTORICAL RESULTS Hgb 16.1 14.0 - 18.0 g/dl HISTORICAL RESULTS Hct 45.6 40.0 - 54.0 % HISTORICAL RESULTS MCV 88.4 77.0 - 97.0 fl HISTORICAL RESULTS MCH 31.2 23.0 - 34.0 pg HISTORICAL RESULTS MCHC 35.3 32.0 - 36.0 g/dl HISTORICAL RESULTS Rdw 13.7 11.5 - 14.5 % HISTORICAL RESULTS Platelets 179 150 - 451 K/cumm HISTORICAL RESULTS MPV 10.8(H) 7.4 - 10.4 fl HISTORICAL RESULTS Blood specimen (specimen) 07/03/2013 11:13 AM TREATING PLANT SUPERVISOR Hernando [employer] BLOOD ORDERABLES Final Resul t Performing Organization Address City/[facility] de Phone Number HISTORICAL RESULTS * (ABNORMAL) Blood WBC cell morphologic exam, auto (07/03/2013 11:13 AM TREATING PLANT SUPERVISOR) Lymphocytes 7.9(L) 25.0 - 33.0 % HISTORICAL RESULTS Monos 4.6 1.0 - 13.0 % HISTORICAL RESULTS Neutrophils 87.2(H) 54.0 - 69.0 % HISTORICAL RESULTS Eosinophils 0.0 0.0 - 10.0 % HISTORICAL RESULTS Basophils 0.1 0.0 - 1.0 % HISTORICAL RESULTS Immature granulocytes 0.2 0.0 - 1.0 % HISTORICAL RESULTS Lymphocytes, abs 0.9(L) 1.2 - 3.4 K/cumm HISTORICAL RESULTS Monocytes, absolute 0.5(L) 1.1 - 1.9 K/cumm HISTORICAL RESULTS Neutrophils, abs 10.3(H) 1.4 - 6.5 K/cumm HISTORICAL RESULTS Eosinophils, abs 0.0 0.0 - 0.7 cells/cum m HISTORICAL RESULTS Basophils, abs 0.0 0.0 - 0.2 K/cumm HISTORICAL RESULTS Immature granulocyte, abs 0.0 0.0 - 0.0 K/cumm HISTORICAL RESULTS Blood specimen (specimen) 07/03/2013 11:13 AM TREATING PLANT SUPERVISOR [employer] LAB BLOOD ORDERABLES Final Resul t Performing Organization Address City/State/[facility] de Phone Number HISTORICAL RESULTS * Serum hepatic function panel (07/03/2013 11:13 AM TREATING PLANT SUPERVISOR) AST 17 10 - 45 Units/L HISTORICAL RESULTS Comment:AST - NOTE REFERENCE RANGE CHANGE ALT 23 15 - 70 Units/L HISTORICAL RESULTS Alk phos 77 44 - 125 Units/L HISTORICAL RESULTS Bilirubin 0.7 0.0 - 1.1 mg/dl HISTORICAL RESULTS Bilirubin, direct 0.1 0.0 - 0.3 mg/dl HISTORICAL RESULTS Alb 4.2 3.3 - 4.5 g/dl HISTORICAL RESULTS Protein, sr 7.6 6.4 - 8.0 g/dl HISTORICAL RESULTS Serum 07/03/2013 11:1 3 AM TREATING PLANT SUPERVISOR us Hernando De La Cruz LAB BLOOD ORDERABLES Final Resul t Performing Organization Address [facility] de Phone Number HISTORICAL RESULTS * Discharge Laboratory Cumulative Report (07/03/2013 12:00 AM TREATING PLANT SUPERVISOR) 07/03/2013 Narrative HISTORICAL RESULTS - 07/05/2013 2:26 AM TREATING PLANT SUPERVISOR Patient No: [id number] ? [facility] Patient Name: SAMUEL HUFFMAN ?[facility] Healthcare Age: 68 YRS ?: 1945 ?Sex:M ?[address] )[phone] ?? Adm Dt: 07/03/2013 ?[place], [place] ??[address] Created: 07/05/2013 ??0226 ?? Pt. Type: R ? Discharge Dt: 07/03/2013 ? Pathologists: Darcie Tolonolivia Lam Dr. Attend Dr: HERNANDO DE LA CRUZ MD ? BLOOD CELL COUNTS ?Collection Date: ?07/03/13 ?Collection Time: ?1113 ? Ref Range: ?? Units: [4.00-10.50] /CMM ? WBC X 10^3 ? 11.79 H [4.60-6.20] ??/CMM ? RBC X 10^6 ?5.16 [14.0-18.0] ??G/DL ? HGB ? 16.1 [40.0-54.0] ??% ?HCT ? 45.6 [77.0-97.0] ??FL ? MCV ? 88.4 [23.0-34.0] ??PG ? MCH ? 31.2 [32.0-36.0] ??% ?MCHC ?35.3 [11.5-14.5] ??% ?RDW ? 13.7 [150-451] ?? /CMM ? PLT X 10^3 ? 179 ?BLOOD CELL DIFFERENTIAL ?Collection Date: ?07/03/13 ?Collection Time: ?1113 ? Ref Range: ?? Units: [54.0-69.0] ??% ?NEUTROPHILS ? 87.2 H [25.0-33.0] ??% ?LYMPHOCYTES ?7.9 L [1.0-13.0] ??% ?MONOCYTES ?4.6 [0.0-10.0] ??% ?EOSINOPHILS ?0.0 [0.0-1.0] ?? % ?BASOPHILS ?0.1 ? /CMM ? A LYMPHOCYTE ? 0.9 L [0.0-1.0] ?? % ?IMM GRAN % ? 0.2 [0.00-0.02] ??/CMM ? A IMM GRAN ?0.02 [1.1-1.9] ?? /CMM ? A MONOCYTE ? 0.5 L [1.4-6.5] ?? /CMM ? A NEUTROPHIL ?10.3 H [0.0-0.7] ?? /CMM ? A EOSINOPHIL ? 0.0 [0.0-0.2] ?? /CMM ? A BASOPHIL ? 0.0 Footnotes and Symbols: L = Low, H = High ?? CONTINUED ?Page: ?? 1 Patient No: [id number] ? [facility] Patient Name: SAMUEL HUFFMAN ?[facility] Healthcare Age: 68 YRS ?: 1945 ?Sex:M ?[address] )[phone] ?? Adm Dt: 07/03/2013 ?[place], [place] ??[address] Created: 07/05/2013 ??0226 ?? Pt. Type: R ? Discharge Dt: 07/03/2013 ? Pathologists: Darcie Oneal MD Admit Attend Dr: HERNANDO DE LA CRUZ MD ?SPECIAL HEMATOLOGY ?Collection Date: ?07/03/13 ?Collection Time: ?1113 ? Ref Range: ?? Units: ?? [0-20] ?MM/HR ?SED RATE ? 1 ? GENERAL CHEMISTRY ?Collection Date: ?07/03/13 ?Collection Time: ?1113 ? Ref Range: ?? Units: [134-143] ?? MMOL/L ? SODIUM ? 139 [3.4-5.0] ?? MMOL/L ? POTASSIUM ?3.8 [99.0-108.0] MMOL/L ? CHLORIDE ? 105.0 [23.0-32.0] ??MMOL/L ? TOTAL CO2 ? 25.4 ?? [7-14] ?MMOL/L ? ANION GAP ? 12 ??[70-199] ?? MG/DL ?GLUCOSE ?108 f [280-301] ?? MOSM/K ? CALCULATED OSMO ?281 [6.4-8.0] ?? G/DL ? TOTAL PROTEIN ?7.6 [3.3-4.5] ?? G/DL ? ALBUMIN ?4.2 [8.6-9.8] ?? MG/DL ?CALCIUM ?9.0 [0.0-0.3] ?? MG/DL ?BILI DIRECT ?0.1 [0.0-1.1] ?? MG/DL ?BILI TOTAL ? 0.7 ??[44-125] ?? U/L ?ALK PHOS ?77 Footnotes and Symbols: f = Footnote GLUCOSE (05/05/13 -- Current) Note:The glucose is assumed non fasting Fastin-99 mg/dl Random: 70-199 mg/dl Either a fasting glucose > 126 mg/dL or a random glucose > 200 mg/dL plus symptoms is diagnostic of diabetes when confirmed on another day. Fasting values > 100 mg/dl but < 125 mg/dL are diagnostic of impaired fasting glucose. New reference ranges implemented 04/13/2013. ?? CONTINUED ?Page: ?? 2 Patient No: [id number] ? [facility] Patient Name: SAMUEL HUFFMAN ?[facility] Age: 68 YRS ?: 1945 ?Sex:M ?[address] )[phone] ?? Adm Dt: 07/03/2013 ?[place] ??[address] Created: 07/05/2013 ??0226 ?? Pt. Type: R ? Discharge Dt: 07/03/2013 ? Pathologists: Darcie Oneal MD Admit Attend Dr: HERNANDO DE LA CRUZ MD ? GENERAL CHEMISTRY ?Collection Date: ?07/03/13 ?Collection Time: ?1113 ? Ref Range: ?? Units: ??[10-45] ?U/L ?AST(SGOT) ? 17 f ??[15-70] ?U/L ?ALT(SGPT) ? 23 f [6.0-23.0] ??MG/DL ?BUN ? 22.0 ??[10-20] ? B/C RATIO ? 18 [0.60-1.30] ??MG/DL ?CREATININE ?1.23 ?LIPIDS ?Collection Date: ?07/03/13 ?Collection Time: ?1113 ? Ref Range: ?? Units: ? MG/DL ?CHOLESTEROL ?162 f ? MG/DL ?HDL CHOLESTEROL ? 41 f Footnotes and Symbols: f = Footnote AST(SGOT) (11/12/12 -- Current) AST ??- NOTE REFERENCE RANGE CHANGE ALT(SGPT) (12/23/12 -- Current) CHOLESTEROL (06/15/10 -- Current) DESIRABLE = LESS THAN 200 MG/DL BORDERLINE HIGH = 200-239 MG/DL HIGH= GREATER THAN 239 MG/DL HDL CHOLESTEROL (06/15/10 -- Current) LOW HDL CHOLESTEROL = Less than 40 mg/dL NORMAL HDL CHOLESTEROL = 40-59 mg/dL HIGH HDL CHOLESTEROL = Greater than 59 mg/dL ?? CONTINUED ?Page: ?? 3 Patient No: [id number] ? [facility] Patient Name: SAMUEL HUFFMAN ?[facility] Healthcare Age: 68 YRS ?: 1945 ?Sex:M ?[address] )[phone] ?? Adm Dt: 07/03/2013 ?[place], [place] ??[address] Created: 07/05/2013 ??0226 ?? Pt. Type: R ? Discharge Dt: 07/03/2013 ? Pathologists: Darcie Oneal MD Admit Attend Dr: HERNANDO DE LA CRUZ MD ?LIPIDS ?Collection Date: ?07/03/13 ?Collection Time: ?1113 ? Ref Range: ?? Units: ? MG/DL ?TRIGLYCERIDES ? 73 f ?07/03/13 1113 Current guidelines recommend that lipid screen be ??performed on fasting blood samples for heart risk stratification. FOOTNOTE ADDED ON ?? 07/03/13 ?? AT 1312 BY 999 ? MG/DL ?NON HDL CALC ? 121 f ?LDL CHOL CALC ?106 f Footnotes and Symbols: f = Footnote TRIGLYCERIDES (09/17/12 -- Current) NORMAL = LESS THAN 150 MG/DL BORDERLINE HIGH = 150-199 MG/DL HIGH = 200-499 MG/DL VERY HIGH = GREATER THAN OR EQUAL TO 500 MG/DL NON HDL CALC (09/08/12 -- Current) OPTIMAL LESS THAN 130 LOW RISK 130 -159 MODERATE RISK 160 - 189 HIGH RISK GREATER THAN OR EQUAL TO 190 LDL CHOL CALC (09/18/12 -- Current) LESS THAN 100 MG/DL OPTIMAL 100 - 129 MG/DL NEAR OPTIMAL / ABOVE OPTIMAL 130 - 159 MG/DL BORDERLINE HIGH 160 - 189 MG/DL HIGH GREATER THAN OR = 190 MG/DL VERY HIGH LDL VALUES ARE NOT VALID WHEN THE TOTAL TRIGLYCERIDE IS GREATER THAN 300 MG/DL. ?? CONTINUED ?Page: ?? 4 Patient No: [id number] ? [facility] Patient Name: SAMUEL HUFFMAN ?[facility] Healthcare Age: 68 YRS ?: 1945 ?Sex:M ?[address] )[phone] ?? Adm Dt: 07/03/2013 ?[place], [place] ??[address] Created: 07/05/2013 ??0226 ?? Pt. Type: R ? Discharge Dt: 07/03/2013 ? Pathologists: Darcie Oneal MD Admit Attend Dr: HERNANDO DE LA CRUZ MD ?THYROID FUNCTION TESTS ?Collection Date: ?07/03/13 ?Collection Time: ?1113 ? Ref Range: ?? Units: [0.7-1.3] ?? NG/DL ?FREE T4 ?0.8 [0.35-4.80] ??uIU/ML ? TSH ? 0.41 ? TUMOR MARKERS ?Collection Date: ?07/03/13 ?Collection Time: ?1113 ? Ref Range: ?? Units: [0.0-4.0] ?? NG/ML ?PSA SCREENING ?2.0 ?? END OF CHART ? Page: ?? 5 us Historical Provider LAB BLOOD ORDERABLES Mariaa l Result HISTORICAL RESULTS documented in this encounter Visit Diagnoses Diagnosis Weight loss Loss of weight Disorder of arteries and arterioles (HCC) Unspecified disorders of arteries and arterioles Other and unspecified hyperlipidemia Esophageal reflux Special screening for malignant neoplasm of prostate Screening for lipoid disorders Rash and other nonspecific skin eruption documented in this encounter Care Teams Green Chain Worker Relationship Specialty Start Date End Date Hernando De La Cruz PCP - General 07/03/11 08/30/16 documented as of this encounter
--- OUTSIDE RECORDS SUMMARY | 2024-06-14 16:53 | XMS_ITS | Encounter Summary ---
Author Organization [facility] Healthcare Address [address] [place] [address] Care Team Providers Care Unleavened Dough Mixer Name Role Phone Hernando De La Cruz Primary Care Provider Unavailabl e Encounter Details Date Type Department Care Team (Late st Contact Info) Description 09/15/2014 9:03 AM CDT - 09/15/2014 11:59 PM CDT Hospital Encounter [facility] CLINCONV Hernando De La Cruz Solitary pulmonary nodule; Thoracic aortic ectasia (CMS/HCC) (HCC); Diaphragmatic hernia; Calculus of kidney Social History Tobacco Use Types Packs/Day Years Used Date Smoking Tobacco: Heavy Smoker Comments:Smoking History Pac ks/day: 2 Packs Alcohol Use Standard Drinks/Week Comments No 0 (1 standard drink = 0.6 oz pur e alcohol) Sex and Gender Information Value Date Recorded Sex Assigned at Not on file Legal Sex Male 12:56 AM TRIMMER SAWYER Gender Identity Not on file Sexual Orientation [...] Name Priority Date/Time Associated Diagnosis Comments CT CHEST WO CONTRAST Routine 09/15/2014 9:22 AM CDT documented in this encounter Results * CT Chest WO Contrast (09/15/2014 9:22 AM CDT) Anatomical Region Laterality Modality Body N/A Computed Tomogra phy 09/15/2014 9:22 AM CDT Narrative 09/15/2014 1:[address] [place] ?[id number] ??Acc#: ??[id number] DATE OF EXAM: ??Sep 15 2014 CLINICAL HISTORY: Persistent cough. RESULT: Sequential axial images of the chest were obtained without contrast. Coronal reconstructions were performed. ??Comparison with a prior study of 04/04/12 is made. An 8 mm noncalcified nodule in the right middle lobe (image 37 of 73), is stable in size. ??No new suspicious pulmonary nodule or infiltrate is seen. ??No pneumothorax or pleural effusion is present. ??Scattered mildly enlarged mediastinal lymph nodes are seen which are relatively unchanged in size since the prior study. ??For example a precarinal lymph node measuring 1.2 cm in shortest diameter demonstrates a fatty hilum consistent with benign morphology. ??Ectasia of the thoracic aorta is again seen. ??The heart is normal in size. ??Coronary artery calcifications are noted. ??Limited views through the upper abdomen reveal a punctate right renal calculus. ??A small hiatal hernia is seen. IMPRESSION: 1. STABLE 8 MM NONCALCIFIED RIGHT MIDDLE LOBE NODULE WHICH HAS BEEN STABLE OVER THE LAST TWO YEARS AND IS CONSISTENT WITH A BENIGN ETIOLOGY. 2. MEDIASTINAL LYMPH NODES WHICH ARE UNCHANGED IN SIZE. 3. ECTATIC THORACIC AORTA. 4. SMALL HIATAL HERNIA. 5. PUNCTATE RIGHT INTRARENAL CALCULUS. Interpreting Physician: ??CINDY FUENTES M.D. ??Read on: ??Sep 15 2014 9:47A Transcribed by: ??remigio ??On: Sep 15 2014 ??1:32P Approved Electronically by: ??CINDY FUENTES M.D. ??on: ??Sep 15 2014 1:52P Attending: ??, Requesting: ??ATDR HERNANDO PEMBERTON Requesting Fax: ??-- Attending Fax: ??-- Attending ID: ?? Requesting ID: ??[id number] Report To 1 ID: ??[id number] Report To 1 Name: ??DR HERNANDO DE LA CRUZ Report To 1 FAX: ??-- NextGen Order #: Procedure Note Provider, MD Emmie - 09/23/[place] [id number] Acc#: [id number] DATE OF EXAM: Sep 15 2014 CLINICAL HISTORY: Persistent cough. RESULT: Sequential axial images of the chest were obtained without contrast.Coronal reconstructions were performed. Comparison with a prior study of04/04/12 is made. An 8 mm noncalcified nodule in the right middle lobe(image 37 of 73), is stable in size. No new suspicious pulmonary noduleor infiltrate is seen. No pneumothorax or pleural effusion is present.Scattered mildly enlarged mediastinal lymph nodes are seen which arerelatively unchanged in size since the prior study. For example aprecarinal lymph node measuring 1.2 cm in shortest diameter demonstrates afatty hilum consistent with benign morphology. Ectasia of the thoracicaorta is again seen. The heart is normal in size. Coronary arterycalcifications are noted. Limited views through the upper abdomen reveala punctate right renal calculus. A small hiatal hernia is seen. IMPRESSION: 1. STABLE 8 MM NONCALCIFIED RIGHT MIDDLE LOBE NODULE WHICH HAS BEEN STABLEOVER THE LAST TWO YEARS AND IS CONSISTENT WITH A BENIGN ETIOLOGY. 2. MEDIASTINAL LYMPH NODES WHICH ARE UNCHANGED IN SIZE. 3. ECTATIC THORACIC AORTA. 4. SMALL HIATAL HERNIA. 5. PUNCTATE RIGHT INTRARENAL CALCULUS. Interpreting Physician: CINDY FUENTES M.D. Read on: Sep 15 [id number] Transcribed by: [email or web address] On: Sep 15 2014 1:32P Approved Electronically by: CINDY FUENTES M.D. on: Sep 15 20141:[id number] Attending: , Requesting: DR HERNANDO DE LA CRUZ Requesting Fax: -- Attending Fax: -- Attending ID: Requesting ID: [id number] Report To 1 ID: [id number] Report To 1 Name: DR HERNANDO DE LA CRUZ Report To 1 FAX: -- NextGen Order #: Historical Provider MD CHARLES CT PROCEDURES Final R esult documented in this encounter Visit Diagnoses Diagnosis Solitary pulmonary nodule Thoracic aortic ectasia (CMS/HCC) (HCC) Thoracic aortic ectasia Diaphragmatic hernia Diaphragmatic hernia without mention of obstruction or gangrene Calculus of kidney documented in this encounter Care Teams Unleavened Dough Mixer Relationship Specialty Start Date End Date Hernando De La Cruz PCP - General 07/03/11 08/30/16 documented as of this encounter
--- OUTSIDE RECORDS SUMMARY | 2024-06-14 16:53 | XMS_ITS | Encounter Summary ---
Author Organization [facility] Facility Care Team Providers Care Strategic Procurement Manager Name Role Phone Alberto Stanton Primary Care Provider Unavailabl e Encounter Details Date Type Department Care Team (Late st Contact Info) Description 11/03/2014 7:35 AM CDT - 11/03/2014 12:35 PM CDT Hospital Encounter [facility] Frank Turcios MD [address] [place] [id number] Calculus of ureter; Urethral stricture; Accidental laceration or bleeding during procedure NEC; Accidental laceration or bleeding during endoscopy; Place of occurrence, residential institution Social History Tobacco Use Types Packs/Day Years Used Date Smoking Tobacco: Heavy Smoker Comments:Smoking History Pac ks/day: 2 Packs Alcohol Use Standard Drinks/Week Comments No 0 (1 standard drink = 0.6 oz pur e alcohol) Sex and Gender Information Value Date Recorded Sex Assigned at Not on file 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 Date: 11/03/2014 Surgeon: FRANK MANRIQUE MD Admit Date: 11/03/2014 Disch. Date: 11/03/2014 Patient Type: SDS PREOPERATIVE DIAGNOSIS: Left obstructing nephrolithiasis. POSTOPERATIVE DIAGNOSIS: Left obstructing nephrolithiasis. NAME OF PROCEDURE: 1. Cystoscopy. 2. Left ureteroscopy. 3. Left laser lithotripsy basket stone extraction of stone. 4. Left ureteral stent placement. SURGEON: Frank Manrique MD CORE SUCKER: Ezeqiuel Cooley MD ANESTHESIA: General with LMA. COMPLICATIONS: None. ESTIMATED BLOOD LOSS: Less than 1 mL. INDICATIONS: Mr. Samuel Huffman is a 69-year-old gentleman with an obstructing 6 mm left UJ stone. We surveyed this for several months but it has failed to pass. For this reason, I recommended he undergo a left laser lithotripsy and basket stone extraction of the stone. The patient was given 40 mg of IV ciprofloxacin for perioperative antibiotic prior to the surgery. DESCRIPTION OF OPERATIVE PROCEDURE: The patient was taken to the operating suite and general anesthesia was obtained. The patient was prepped and draped in the dorsal lithotomy position. We began the case by inserting a rigid cystoscope into the patient's bladder. I felt the patient had several small webs in his proximal urethra but these could be easily dilated with using a beak of the cystoscope and passed through without difficulty. Upon entering the bladder, the cystourethroscopy was performed, there were no lesions seen, the left ureteral orifice was seen and identified and its anatomic position it appeared very small. It could be cannulated with a 0.035 Sensor guidewire which was passed up the kidney under fluoroscopic guidance. The cystoscope was removed. Next we inserted a semirigid ureteroscope. Though the semirigid ureteroscope we passed a Everettson guidewire and used this to train track into his left ureteral orifice. The left ureteral orifice was extremely tight but with gentle dilatation we were able to force the scope in causing a grade 2 mucosal injury in his intramural ureter. Upon passing this very tight airway, we immediately encountered a 6 mm stone which was impacted in his distal ureter. We used a 200 micron holmium laser fiber to break this into four pieces, these pieces were then extracted entirely using a Zero tip Nitinol basket. They were sent for stone analysis. The rest of the ureter was surveyed and found to be clean. The semirigid ureteroscope was removed. We backward the cystoscope with the Sensor guidewire and put the scope back into the patient's bladder. Through the cystoscope we passed a 6 x 26 maltese Bard Iota in the soft stent. The stent was deployed without incident without a strain. Total fluoroscopic time was fourteen seconds. The stent will remain for two weeks at which point it will be removed in the office. I was present and scrubbed for the entire procedure. FRANK MANRIQUE MD Dictated by: MD COOPER HERNANDES/mp TD: 11/03/2014 15:25 Electronically Authenticated by: Frank Manrique MD On 11/09/2014 09:33 AM CDT documented in this encounter Plan of Treatment Not on file documented as of this encounter Procedures Procedure Name Priority Date/Time Associated Diagnosis Comments STONE ANALYSIS Routine 11/03/2014 10:13 AM CDT ELECTROCARDIOGRAPHY (ECG) 11/03/2014 DISCHARGE LABORATORY CUMULATIVE REPORT 11/03/2014 documented in this encounter Results * Stone analysis (11/03/2014 10:13 AM CDT) Stone source Left Ureter HISTO RICAL RESULTS Stone, first component 100% Calcium oxalate monohydrate HISTORICAL RESULTS Calculus, NOS 11/03/2014 10: 13 AM CDT Narrative HISTORICAL RESULTS - 11/08/2014 8:40 AM CDT Test performed at [facility] Dept of Lab Medicine and Pathology, [address] [facility] [facility], [place], [place], [place], [address]. Frank Manrique MD LAB BLOOD ORDERABLES Final Result HISTORICAL RESULTS * DISCHARGE LABORATORY CUMULATIVE REPORT (11/03/2014) Narrative 11/03/2014 Ordered by an unspecified provider. Historical Provider LAB BLOOD ORDERABLES Mariaa l Result * ELECTROCARDIOGRAPHY (ECG) (11/03/2014) Narrative 11/03/2014 Ordered by an unspecified provider. Historical Provider ECG ORDERABLES Final Res ult documented in this encounter Visit Diagnoses Diagnosis Calculus of ureter Urethral stricture Accidental laceration or bleeding during procedure NEC Accidental laceration or bleeding during endoscopy Accidental cut, puncture, perforation, or hemorrhage during endoscopic examination Place of occurrence, residential institution documented in this encounter Care Teams Strategic Procurement Manager Relationship Specialty Start Date End Date Alberto Stanton PCP - General 07/03/11 08/30/16 documented as of this encounter
--- OUTSIDE RECORDS SUMMARY | 2024-06-14 16:53 | XMS_ITS | Encounter Summary ---
Author Organization [facility] Facility Care Team Providers Care Metal Door Assembler Name Role Phone Alberto Stanton Primary Care Provider Unavailabl e Encounter Details Date Type Department Care Team (Late st Contact Info) Description 09/14/2010 - 09/14/2010 11:59 PM CDT Hospital Encounter [facility]IN [facility] Michael Johnson MD [address] [id number] Shortness of breath Social History Tobacco Use Types Packs/Day Years Used Date Smoking Tobacco: Never Assessed Sex and Gender Information Value Date Recorded Sex Assigned at Not on file 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
--- OUTSIDE RECORDS SUMMARY | 2024-06-14 16:53 | XMS_ITS | Encounter Summary ---
Author Organization [facility] Healthcare Address [address] [place] [address] Care Team Providers Care Airplane Patroller Name Role Phone Alberto Stanton Primary Care Provider Unavailabl e Encounter Details Date Type Department Care Team (Late st Contact Info) Description 01/02/2016 12:32 PM CDT - 01/02/2016 11:59 PM CDT Hospital [place] [address] [place] [id number] Enlarged prostate with lower urinary tract symptoms (LUTS) Social History Tobacco Use Types Packs/Day Years Used Date Smoking Tobacco: Heavy Smoker Comments:Smoking History Pac ks/day: 2 Packs Alcohol Use Standard Drinks/Week Comments No 0 (1 standard drink = 0.6 oz pur e alcohol) Sex and Gender Information Value Date Recorded Sex Assigned at Not on file 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 us Historical Provider LAB BLOOD ORDERABLES Mariaa l Result * Serum prostate-specific antigen (PSA) (01/02/2016 12:40 PM CDT) PSA 1.35 0.00 - 4.00 ng/ml CDR HISTORICAL RESULTS Comment:Test performed at [facility], [address] [place] [address], [place]., [address] Serum 01/02/2016 12:4 0 PM CDT us Mehdi Glass MD LAB BLOOD ORDERABLES Final Resu lt CDR HISTORICAL RESULTS documented in this encounter Visit Diagnoses Diagnosis Enlarged prostate with lower urinary tract symptoms (LUTS) Hypertrophy of prostate with urinary obstruction and other lower urinary tract symptoms (LUTS) documented in this encounter Care Teams Airplane Patroller Relationship Specialty Start Date End Date Alberto Stanton PCP - General 07/03/11 08/30/16 documented as of this encounter
--- OUTSIDE RECORDS SUMMARY | 2024-06-14 16:53 | XMS_ITS | Encounter Summary ---
Author Organization [facility] Facility Care Team Providers Care Crew Leader Gluing Name Role Phone Alberto Stanton Primary Care Provider Unavailabl e Encounter Details Date Type Department Care Team (Late st Contact Info) Description 09/16/2014 3:04 PM CDT - 09/16/2014 11:59 PM CDT Hospital Encounter [facility] Frank Manrique MD [address] [place] [id number] Calculus of kidney; Hypertrophy of prostate without urinary obstruction and other lower urinary tract symptoms (LUTS); Other specified disorders of prostate; Acquired cyst of kidney; Solitary pulmonary nodule; Disorder of liver Social History Tobacco Use Types Packs/Day Years Used Date Smoking Tobacco: Heavy Smoker Comments:Smoking History Pac ks/day: 2 Packs Alcohol Use Standard Drinks/Week Comments No 0 (1 standard drink = 0.6 oz pur e alcohol) Sex and Gender Information Value Date Recorded Sex Assigned at Not on file 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 SHYLA ABBASI M.D. FINAL REPORT The radiology attending physician has personally reviewed this study, and has reviewed and/or edited this written report and agrees with it. ACC# ??Date Time ??Exam [id number] Sep 16, 2014 16:25:[id number] Abd & Pelvis wo EXAMINATION: ?? ABDOMEN AND PELVIS CT WITHOUT CONTRAST HISTORY: Right flank pain TECHNIQUE: ??Axial images of the abdomen and pelvis are obtained using standard protocol. FINDINGS: ??Comparison is made to prior examination dated 08/14/2014. Chest: There is unchanged 3 mm pleural based nodule in the left lower lobe at slice position -1121. No pleural effusion. The heart is normal in size without pericardial effusion. Abdomen/pelvis: There is a 5 mm hypoattenuating lesion in the left hemiliver, likely representing a cyst or hemangioma. The liver is otherwise normal. The spleen, adrenals, pancreas, and gallbladder are normal. The gallbladder is decompressed. There is an unchanged 6 mm stone in the distal left ureter without obstruction. There are multiple sub 5 mm nonobstructing kidney stones in both kidneys. There is a simple cyst in the right kidney. No hydronephrosis. The bladder is decompressed. The prostate is enlarged with coarse calcifications. The small and large bowel are normal. There is diverticulosis without diverticulitis. The appendix is normal. No free intraperitoneal air or fluid. No retroperitoneal or pelvic lymphadenopathy. There is a retroaortic a left renal vein. The great vessels of the abdomen are otherwise normal in course and caliber with moderate atherosclerosis. Bone windows do not show any suspicious osseous lesions. IMPRESSION: ?? Unchanged 6 mm nonobstructing stone in the distal left ureter. No hydronephrosis. Multiple unchanged nonobstructing kidney stones. Requested By: FRANK MANRIQUE M.D. Dictated By: ?? SHYLA ABBASI M.D. ??on Sep 16 2014 ??4:55P This document has been electronically signed by: ADITHYA DELANEY M.D. on Sep 16 2014 ??5:03P [id number] Procedure Note Provider, MD Emmie - 09/23/2016 ADITHYA DELANEY M.D. SHYLA ABBASI M.D. FINAL REPORT The radiology attending physician has personally reviewed this study, and has reviewed and/or edited this written report and agrees with it. ACC# Date Time Exam [id number] Sep 16, 2014 16:25:[id number] Abd & Pelvis wo EXAMINATION: ABDOMEN AND PELVIS CT WITHOUT CONTRAST HISTORY: Right flank pain TECHNIQUE: Axial images of the abdomen and pelvis are obtained using standard protocol. FINDINGS: Comparison is made to prior examination dated 08/14/2014. Chest: There is unchanged 3 mm pleural based nodule in the left lower lobe at slice position -1121. No pleural effusion. The heart is normal in size without pericardial effusion. Abdomen/pelvis: There is a 5 mm hypoattenuating lesion in the left hemiliver, likely representing a cyst or hemangioma. The liver is otherwise normal. The spleen, adrenals, pancreas, and gallbladder are normal. The gallbladder is decompressed. There is an unchanged 6 mm stone in the distal left ureter without obstruction. There are multiple sub 5 mm nonobstructing kidney stones in both kidneys. There is a simple cyst in the right kidney. No hydronephrosis. The bladder is decompressed. The prostate is enlarged with coarse calcifications. The small and large bowel are normal. There is diverticulosis without diverticulitis. The appendix is normal. No free intraperitoneal air or fluid. No retroperitoneal or pelvic lymphadenopathy. There is a retroaortic a left renal vein. The great vessels of the abdomen are otherwise normal in course and caliber with moderate atherosclerosis. Bone windows do not show any suspicious osseous lesions. IMPRESSION: Unchanged 6 mm nonobstructing stone in the distal left ureter. No hydronephrosis. Multiple unchanged nonobstructing kidney stones. Requested By: FRANK MANRIQUE M.D. Dictated By: SHYLA ABBASI M.D. on Sep 16 2014 4:55P This document has been electronically signed by: ADITHYA DELANEY M.D. on Sep 16 2014 5:03P [id number] Historical Provider MD CHARLES CT PROCEDURES Final R esult documented in this encounter Visit Diagnoses Diagnosis Calculus of kidney Hypertrophy of prostate without urinary obstruction and other lower urinary tract symptoms (LUTS) Other specified disorders of prostate Acquired cyst of kidney Solitary pulmonary nodule Disorder of liver Unspecified disorder of liver documented in this encounter Care Teams Crew Leader Gluing Relationship Specialty Start Date End Date Alberto Stanton PCP - General 07/03/11 08/30/16 documented as of this encounter
--- OUTSIDE RECORDS SUMMARY | 2024-06-14 16:53 | XMS_ITS | Encounter Summary ---
Author Organization [facility] Healthcare Address [address] [place] [address] Care Team Providers Care Plug Overwrap Machine Tender Name Role Phone Alberto Stanton Primary Care Provider Unavailabl e Encounter Details Date Type Department Care Team (Late st Contact Info) Description 01/02/2016 12:40 PM CDT - 01/02/2016 11:59 PM CDT Hospital Encounter [facility] Social History Tobacco Use Types Packs/Day Years Used Date Smoking Tobacco: Heavy Smoker Comments:Smoking History Pac ks/day: 2 Packs Alcohol Use Standard Drinks/Week Comments No 0 (1 standard drink = 0.6 oz pur e alcohol) Sex and Gender Information Value Date Recorded Sex Assigned at Not on file 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
--- OUTSIDE RECORDS SUMMARY | 2024-06-14 16:53 | XMS_ITS | Encounter Summary ---
Author Organization [facility] Healthcare Address [address] [place] [address] Care Team Providers Care Cook Sauce Name Role Phone Hernando De La Cruz Primary Care Provider Unavailabl e Encounter Details Date Type Department Care Team (Late st Contact Info) Description 04/23/2014 8:56 AM TOLL TEST DESK WORKER - 04/23/2014 11:59 PM TOLL TEST DESK WORKER Hospital Encounter [facility] CLINCONV Hernando De La Cruz Cystitis Social History Tobacco Use Types Packs/Day Years Used Date Smoking Tobacco: Heavy Smoker Comments:Smoking History Pac ks/day: 2 Packs Alcohol Use Standard Drinks/Week Comments Yes 0 (1 standard drink = 0.6 oz pur e alcohol) Sex and Gender Information Value Date Recorded Sex Assigned at Not on file Legal Sex Male 12:56 AM TOLL TEST DESK WORKER Gender Identity Not on file Sexual [...] Name Priority Date/Time Associated Diagnosis Comments SERUM BASIC METABOLIC PANEL Routine 04/23/2014 9:05 AM TOLL TEST DESK WORKER BLOOD WBC CELL MORPHOLOGIC EXAM, AUTO Routine 04/23/2014 9:05 AM TOLL TEST DESK WORKER URINALYSIS Routine 04/23/2014 9:05 AM TOLL TEST DESK WORKER BLOOD CELL COUNT (CBC) Routine 04/23/2014 9:05 AM TOLL TEST DESK WORKER DISCHARGE LABORATORY CUMULATIVE REPORT Routine 04/23/2014 12:00 AM TOLL TEST DESK WORKER documented in this encounter Results * Urinalysis (04/23/2014 9:05 AM TOLL TEST DESK WORKER) Color, ur YELLOW YELLOW HISTORICAL RESULTS Clarity, ur CLEAR CLEAR HISTORIC AL RESULTS Specific gravity, ur 1.024 1.003 - 1.030 gu HISTORICAL RESULTS Leukocyte esterase, ur Negative NEGATIVE HISTORICAL RESULTS Nitrites, ur Negative NEGATIVE HISTORI LIGIA RESULTS pH, ur 5.5 6.0 HISTORICAL RESULTS Protein, ur Negative NEGATIVE HISTORIC AL RESULTS Glucose, ur Negative NEGATIVE HISTORIC AL RESULTS Ketones, ur Negative NEGATIVE HISTORIC AL RESULTS Urobilinogen, quant, ur 0.2 0.2 - 1.0 mg/dl HISTORICAL RESULTS Bilirubin, ur Negative NEGATIVE HISTOR ICAL RESULTS U Blood Negative NEGATIVE HISTORICAL RESULTS Urine 04/23/2014 9:05 AM TOLL TEST DESK WORKER Hernando De La Cruz LAB BLOOD ORDERABLES Final Resul t HISTORICAL RESULTS * (ABNORMAL) Serum basic metabolic panel (04/23/2014 9:05 AM TOLL TEST DESK WORKER) BUN 25.0(H) 6.0 - 23.0 mg/dl HISTORICAL RESULTS Sodium 140 134 - 143 mmol/L HISTORICAL RESULTS Potassium, sr 4.0 3.4 - 5.0 mmol/L HISTORICAL RESULTS Chloride 106 99 - 108 mmol/L HISTORICAL RESULTS CO2 27 23 - 32 mmol/L HISTORICAL RESULTS Glucose 97 70 - 199 mg/dl HISTORICAL RESULTS Comment: [...] glucose. New reference ranges implemented 04/13/2013. Creatinine 1.14 0.60 - 1.30 mg/dl HISTORICAL RESULTS BUN/creat ratio 22(H) 10 - 20 HIST ORICAL RESULTS A. gap 11 7 - 14 mmol/L HISTORICAL RESULTS Osmo, calc 284 280 - 301 mOsm/kg HISTORICAL RESULTS Calcium 8.9 8.6 - 9.8 mg/dl HISTORICAL RESULTS Serum 04/23/2014 9:05 AM TOLL TEST DESK WORKER Hernando QmerceAshanti Offerial LAB BLOOD ORDERABLES Final Resul t Performing Organization Address City/[facility] de Phone Number HISTORICAL RESULTS * Blood cell count (CBC) (04/23/2014 9:05 AM TOLL TEST DESK WORKER) WBC 7.2 4.0 - 10.5 K/cumm HISTORICAL RESULTS RBC 5.27 4.60 - 6.20 M/cumm HISTORICAL RESULTS Hgb 15.8 14.0 - 18.0 g/dl HISTORICAL RESULTS Hct 46.4 40.0 - 54.0 % HISTORICAL RESULTS MCV 88.0 77.0 - 97.0 fl HISTORICAL RESULTS MCH 30.0 23.0 - 34.0 pg HISTORICAL RESULTS MCHC 34.1 32.0 - 36.0 g/dl HISTORICAL RESULTS Rdw 13.4 11.5 - 14.5 % HISTORICAL RESULTS Platelets 244 150 - 400 K/cumm HISTORICAL RESULTS MPV 10.1 7.4 - 10.4 fl HISTORICAL RESULTS Blood specimen (specimen) 04/23/2014 9:05 AM TOLL TEST DESK WORKER FetchnotesAshanti Offerial LAB BLOOD ORDERABLES Final Resul t Performing Organization Address City/[facility] Co de Phone Number HISTORICAL RESULTS * (ABNORMAL) Blood WBC cell morphologic exam, auto (04/23/2014 9:05 AM TOLL TEST DESK WORKER) Lymphocytes 21.0(L) 25.0 - 33.0 % HISTORICAL RESULTS Monos 4.4 0.0 - 13.0 % HISTORICAL RESULTS Neutrophils 70.1(H) 54.0 - 69.0 % HISTORICAL RESULTS Eosinophils 4.0 0.0 - 10.0 % HISTORICAL RESULTS Basophils 0.4 0.0 - 1.0 % HISTORICAL RESULTS Immature granulocytes 0.1 0.0 - 1.0 % HISTORICAL RESULTS Lymphocytes, abs 1.5 1.2 - 3.4 K/cumm HISTORICAL RESULTS Monocytes, absolute 0.3(L) 1.1 - 1.9 K/cumm HISTORICAL RESULTS Neutrophils, abs 5.1 1.4 - 6.5 K/cumm HISTORICAL RESULTS Eosinophils, abs 0.3 0.0 - 0.7 cells/cum m HISTORICAL RESULTS Basophils, abs 0.0 0.0 - 0.2 K/cumm HISTORICAL RESULTS Immature granulocyte, abs 0.0 0.0 - 0.0 K/cumm HISTORICAL RESULTS Blood specimen (specimen) 04/23/2014 9:05 AM TOLL TEST DESK WORKER us Hernando De La Cruz LAB BLOOD ORDERABLES Final Resul t HISTORICAL RESULTS * Discharge Laboratory Cumulative Report (04/23/2014 12:00 AM TOLL TEST DESK WORKER) 04/23/2014 Narrative HISTORICAL RESULTS - 04/25/2014 2:39 AM TOLL TEST DESK WORKER Patient No: [id number] ? [facility] Patient Name: SAMUEL HUFFMAN ?[facility] Healthcare Age: 68 YRS ?: 1945 ?Sex:M ?[address] )[id number] ?? Adm Dt: 04/23/2014 ?[place] ??[id number] Created: 04/25/2014 ??0239 ?? Pt. Type: R ? Discharge Dt: 04/23/2014 ? Pathologists: Darcie Oneal MD Admit Attend Dr: HERNANDO DE LA CRUZ MD ? BLOOD CELL COUNTS ?Collection Date: ?04/23/14 ?Collection Time: ?0905 ? Ref Range: ?? Units: [4.00-10.50] /CMM ? WBC X 10^3 ?7.25 [4.60-6.20] ??/CMM ? RBC X 10^6 ?5.27 [14.0-18.0] ??G/DL ? HGB ? 15.8 [40.0-54.0] ??% ?HCT ? 46.4 [77.0-97.0] ??FL ? MCV ? 88.0 [23.0-34.0] ??PG ? MCH ? 30.0 [32.0-36.0] ??% ?MCHC ?34.1 [11.5-14.5] ??% ?RDW ? 13.4 [150-400] ?? /CMM ? PLT X 10^3 ? 244 ?BLOOD CELL DIFFERENTIAL ?Collection Date: ?04/23/14 ?Collection Time: ?0905 ? Ref Range: ?? Units: [54.0-69.0] ??% ?NEUTROPHILS ? 70.1 H [25.0-33.0] ??% ?LYMPHOCYTES ? 21.0 L [0.0-13.0] ??% ?MONOCYTES ?4.4 [0.0-10.0] ??% ?EOSINOPHILS ?4.0 [0.0-1.0] ?? % ?BASOPHILS ?0.4 ? /CMM ? A LYMPHOCYTE ? 1.5 [0.0-1.0] ?? % ?IMM GRAN % ? 0.1 [0.00-0.02] ??/CMM ? A IMM GRAN ?0.01 [1.1-1.9] ?? /CMM ? A MONOCYTE ? 0.3 L [1.4-6.5] ?? /CMM ? A NEUTROPHIL ? 5.1 [0.0-0.7] ?? /CMM ? A EOSINOPHIL ? 0.3 [0.0-0.2] ?? /CMM ? A BASOPHIL ? 0.0 Footnotes and Symbols: L = Low, H = High ?? CONTINUED ?Page: ?? 1 Patient No: [id number] ? [facility] Patient Name: SAMUEL HUFFMAN ?[facility] Healthcare Age: 68 YRS ?: 1945 ?Sex:M ?[address] )[id number] ?? Adm Dt: 04/23/2014 ?[place] ??[id number] Created: 04/25/2014 ??0239 ?? Pt. Type: R ? Discharge Dt: 04/23/2014 ? Pathologists: Darcie Oneal MD Admit Attend Dr: HERNANDO DE LA CRUZ MD ? GENERAL CHEMISTRY ?Collection Date: ?04/23/14 ?Collection Time: ?904 ? Ref Range: ?? Units: [134-143] ?? MMOL/L ? SODIUM ? 140 [3.4-5.0] ?? MMOL/L ? POTASSIUM ?4.0 [99.0-108.0] MMOL/L ? CHLORIDE ? 106.0 [23.0-32.0] ??MMOL/L ? TOTAL CO2 ? 26.8 ?? [7-14] ?MMOL/L ? ANION GAP ? 11 ??[70-199] ?? MG/DL ?GLUCOSE ? 97 f [280-301] ?? MOSM/K ? CALCULATED OSMO ?284 [8.6-9.8] ?? MG/DL ?CALCIUM ?8.9 [6.0-23.0] ??MG/DL ?BUN ? 25.0 H ??[10-20] ? B/C RATIO ? 22 H [0.60-1.30] ??MG/DL ?CREATININE ?1.14 Footnotes and Symbols: H = High, f = Footnote GLUCOSE (05/05/13 -- Current) [...] ?? CONTINUED ?Page: ?? 2 Patient No: [id number] ? [facility] Patient Name: SAMUEL HUFFMAN ?[facility] Age: 68 YRS ?: 1945 ?Sex:M [address] )[id number] ?? Adm Dt: 04/23/2014 ?[place] ??[id number] Created: 04/25/2014 ??0239 ?? Pt. Type: R ? Discharge Dt: 04/23/2014 ? Pathologists: Darcie Onael MD Admit Attend Dr: HERNANDO DE LA CRUZ MD ?URINALYSIS ?Collection Date: ?04/23/14 ?Collection Time: ?0905 ? Ref Range: ?? Units: [YELLOW] ? U COLOR ? YELLOW ??[CLEAR] ? U APPEARANCE ? CLEAR [1.003-1.030] ? U SPEC GRAVITY ? 1.024 [NEGATIVE] ?U LEUKO ESTRASE ? NEGATIVE [NEGATIVE] ?U NITRITE ? NEGATIVE ?? [6.0] ?U PH ? 5.5 [NEGATIVE] ?U PROTEIN ? NEGATIVE [NEGATIVE] ?U GLUCOSE ? NEGATIVE [NEGATIVE] ?U KETONES ? NEGATIVE [0.2- 1.0] ?UROBILINOGEN ? 0.2 [NEGATIVE] ?U BILIRUBIN ? NEGATIVE [NEGATIVE] ?U BLOOD ? NEGATIVE ?? END OF CHART ? Page: ?? 3 us Historical Provider LAB BLOOD ORDERABLES Mariaa l Result HISTORICAL RESULTS documented in this encounter Visit Diagnoses Diagnosis Cystitis Unspecified cystitis documented in this encounter Care Teams Cook Sauce Relationship Specialty Start Date End Date Hernando De La Cruz PCP - General 07/03/11 08/30/16 documented as of this encounter
--- OUTSIDE RECORDS SUMMARY | 2024-06-14 16:53 | XMS_ITS | Encounter Summary ---
Author Organization [facility] Healthcare Address [address] [place] [address] Care Team Providers Care Hide Trimmer Name Role Phone Alberto Stanton Primary Care Provider Unavailabl e Encounter Details Date Type Department Care Team (Late st Contact Info) Description 05/15/2012 3:17 PM SOFTWARE VALIDATION ENGINEER - 05/15/2012 11:59 PM SOFTWARE VALIDATION ENGINEER Hospital Encounter [facility] CLINCONV Alberto Stanton Lumbosacral spondylosis without myelopathy; Pain in joint, pelvic region and thigh Social History Tobacco Use Types Packs/Day Years Used Date Smoking Tobacco: Heavy Smoker Comments:Smoking History Pac ks/day: 2 Packs Alcohol Use Standard Drinks/Week Comments Yes 0 (1 standard drink = 0.6 oz pur e alcohol) Sex and Gender Information Value Date Recorded Sex Assigned at Not on file Legal Sex Male 12:56 AM SOFTWARE VALIDATION ENGINEER Gender Identity Not on file Sexual [...] Visit Diagnoses Diagnosis Lumbosacral spondylosis without myelopathy Pain in joint, pelvic region and thigh documented in this encounter Care Teams Hide Trimmer Relationship Specialty Start Date End Date Alberto Stanton PCP - General 07/03/11 08/30/16 documented as of this encounter
--- OUTSIDE RECORDS SUMMARY | 2024-06-14 16:53 | XMS_ITS | Encounter Summary ---
Author Organization [facility] Healthcare Address [address] [place] [address] Care Team Providers Care Strategic Communications Specialist Name Role Phone Alberto Stanton Primary Care Provider Unavailabl e Encounter Details Date Type Department Care Team (Late st Contact Info) Description 11/02/2011 11:46 AM CDT - 11/02/2011 11:59 PM CDT Hospital Encounter [facility]INCONV Alberto Stanton Other abnormal clinical finding Social History Tobacco Use Types Packs/Day Years Used Date Smoking Tobacco: Heavy Smoker Comments:Smoking History Pac ks/day: 2 Packs Alcohol Use Standard Drinks/Week Comments Yes 0 (1 standard drink = 0.6 oz pur e alcohol) Sex and Gender Information Value Date Recorded Sex Assigned at Not on file Legal Sex Male 12:56 AM STUNTMAN Gender Identity Not on file Sexual Orientation [...] as of this encounter Visit Diagnoses Diagnosis Other abnormal clinical finding documented in this encounter Care Teams Strategic Communications Specialist Relationship Specialty Start Date End Date Alberto Stanton PCP - General 07/03/11 08/30/16 documented as of this encounter
--- OUTSIDE RECORDS SUMMARY | 2024-06-14 16:53 | XMS_ITS | Encounter Summary ---
Author Organization [facility] Healthcare Address [address] [place] [address] Care Team Providers Care Arch Support Maker Name Role Phone Alberto Stanton Primary Care Provider Unavailabl e Encounter Details Date Type Department Care Team (Late st Contact Info) Description 09/11/2010 12:26 PM CDT - 09/11/2010 11:59 PM CDT Hospital Encounter [facility] DARACONMichael Farah MD [address] [address] Shortness of breath Social History Tobacco Use Types Packs/Day Years Used Date Smoking Tobacco: Never Assessed Sex and Gender Information Value Date Recorded Sex Assigned at Not on file Legal Sex Male 12:56 AM POWERHOUSE OPERATOR Gender Identity Not on file Sexual [...] breath documented in this encounter Care Teams Arch Support Maker Relationship Specialty Start Date End Date Alberto Stanton PCP - General 02/22/10 07/02/11 documented as of this encounter
--- OUTSIDE RECORDS SUMMARY | 2024-06-14 16:53 | XMS_ITS | Encounter Summary ---
Author Organization [facility] Facility Care Team Providers Care Crimping Machine Operator Name Role Phone Alberto Stanton Primary Care Provider Unavailabl e Encounter Details Date Type Department Care Team (Late st Contact Info) Description 09/07/2010 - 09/07/2010 4:00 PM CDT Hospital Encounter [facility] CLINCONV Michael Johnson MD [address] [address] Other primary cardiomyopathies; Shortness of breath Social History Tobacco Use Types Packs/Day Years Used Date Smoking Tobacco: Never Assessed Sex and Gender Information Value Date Recorded Sex Assigned at Not on file Legal Sex Male 12:56 AM RECORDS OFFICER Gender Identity Not on file Sexual [...] of this encounter Visit Diagnoses Diagnosis Other primary cardiomyopathies Shortness of breath documented in this encounter Care Teams Crimping Machine Operator Relationship Specialty Start Date End Date Alberto Stanton PCP - General 02/22/10 07/02/11 documented as of this encounter
--- OUTSIDE RECORDS SUMMARY | 2024-06-14 16:53 | XMS_ITS | Encounter Summary ---
Author Organization [facility] Healthcare Address [address] [place] [address] Care Team Providers Care Breastfeeding Program Coordinator Name Role Phone Hernando De La Cruz Primary Care Provider Unavailabl e Encounter Details Date Type Department Care Team (Late st Contact Info) Description 01/11/2016 5:16 PM CDT - 01/11/2016 11:59 PM CDT Hospital Encounter [facility]INCON[facility] Hernando De La Cruz Pain of right lower leg Social History Tobacco Use Types Packs/Day Years Used Date Smoking Tobacco: Heavy Smoker Comments:Smoking History Pac ks/day: 2 Packs Alcohol Use Standard Drinks/Week Comments No 0 (1 standard drink = 0.6 oz pur e alcohol) Sex and Gender Information Value Date Recorded Sex Assigned at Not on file Legal Sex Male 12:56 AM CREDIT MANAGER Gender Identity Not on file Sexual [...] Name Priority Date/Time Associated Diagnosis Comments MRI LOWER EXTREMITY JOINT WO CONTRAST Routine 01/11/2016 6:51 PM CDT documented in this encounter Results * MRI Lower Extremity Joint WO Contrast (01/11/2016 6:51 PM CDT) Anatomical Region Laterality Modality N/A Magnetic Resonan ce 01/11/2016 6:51 PM CDT Narrative 01/11/2016 9:17 PM CDT MR Lower Leg/Calf WO R ??- RIGHT Acc#: ??[id number] DATE OF EXAM: ??Jan 11 2016 CLINICAL HISTORY: Lateral mid lower leg pain for past 6-7 months with no known injury. RESULT: TECHNIQUE: ??Sagittal T1 and PD SPAIR, coronal T1 and PD SPAIR, axial T1 and PD SPAIR. FINDINGS: ??There is no focal bone marrow edema within the tibia or fibula. The signal pattern in the muscles of the right lower leg is normal with no localized muscle edema. No discrete soft tissue mass is identified. IMPRESSION: NORMAL RIGHT LOWER EXTREMITY MRI. Interpreting Physician: ??APOLINAR ABDULLAHI M.D. ??Read on: ??Jan 11 2016 ??8:23P Transcribed by: ??remigio ??On: Jan 11 2016 ??8:29P Approved Electronically by: ??APOLINAR ABDULLAHI M.D. ??on: ??Jan 11 2016 ??9:17P Attending: ??DR HERNANDO DE LA CRUZ Requesting: ??DR HERNANDO DE LA CRUZ Requesting Fax: ??[phone] Attending Fax: ??[phone] Attending ID: ??[id number] Requesting ID: ??[id number] Report To 1 ID: ??[id number] Report To 1 Name: ??DR HERNANDO DE LA CRUZ Report To 1 FAX: ??[phone] [employer] Order #: Procedure Note Provider, MD Emmie - 09/23/2016 MR Lower Leg/Calf WO R - RIGHT Acc#: [id number] DATE OF EXAM: Jan 11 2016 CLINICAL HISTORY: Lateral mid lower leg pain for past 6-7 months with no known injury. RESULT: TECHNIQUE: Sagittal T1 and PD SPAIR, coronal T1 and PD SPAIR, axial T1and PD SPAIR. FINDINGS: There is no focal bone marrow edema within the tibia or fibula.The signal pattern in the muscles of the right lower leg is normal with nolocalized muscle edema. No discrete soft tissue mass is identified. IMPRESSION: NORMAL RIGHT LOWER EXTREMITY MRI. Interpreting Physician: APOLINAR ABDULLAHI M.D. Read on: Jan 11 2016 8:23P Transcribed by: remigio On: Jan 11 2016 8:29P Approved Electronically by: APOLINAR ABDULLAHI M.D. on: Jan 11 2016 9:17P Attending: DR HERNANDO DE LA CRUZ Requesting: DR HERNANDO DE LA CRUZ Requesting Attending Attending ID: [id number] Requesting ID: [id number] Report To 1 ID: [id number] Report To 1 Name: DR HERNANDO DE LA CRUZ Report To 1 FAX: [phone] [facility] Order #: us Historical Provider MD CHARLES MRI PROCEDURES Final Result documented in this encounter Visit Diagnoses Diagnosis Pain of right lower leg documented in this encounter Care Teams Breastfeeding Program Coordinator Relationship Specialty Start Date End Date Hernando De La Cruz PCP - General 07/03/11 08/30/16 documented as of this encounter
--- OUTSIDE RECORDS SUMMARY | 2024-06-14 16:53 | XMS_ITS | Encounter Summary ---
Author Organization [facility] Facility Care Team Providers Care Garage Helper Name Role Phone Alberto Stanton Primary Care Provider Unavailabl e Encounter Details Date Type Department Care Team (Late st Contact Info) Description 10/24/2011 1:17 PM CDT Hospital Encounter [facility] Brenda Thomason MD [address] [place] [address] Personal history of urinary calculi Social History Tobacco Use Types Packs/Day Years Used Date Smoking Tobacco: Heavy Smoker Comments:Smoking History Pac ks/day: 2 Packs Alcohol Use Standard Drinks/Week Comments Yes 0 (1 standard drink = 0.6 oz pur e alcohol) Sex and Gender Information Value Date Recorded Sex Assigned at Not on file Legal Sex Male 12:56 AM PARAMEDIC RN Gender Identity Not on file Sexual Orientation [...] as of this encounter Visit Diagnoses Diagnosis Personal history of urinary calculi documented in this encounter Care Teams Garage Helper Relationship Specialty Start Date End Date Alberto Stanton PCP - General 07/03/11 08/30/16 documented as of this encounter
--- OUTSIDE RECORDS SUMMARY | 2024-06-14 16:53 | XMS_ITS | Encounter Summary ---
Author Organization [facility] Facility Care Team Providers Care Airconditioning Plant Operator Name Role Phone Alberto Stanton Primary Care Provider Unavailabl e Encounter Details Date Type Department Care Team (Late st Contact Info) Description 07/03/2011 4:14 PM SR. SOCIAL MEDIA & MOBILE MANAGER [facility] [place] [address] [place] [address] Rheumatoid arthritis (HCC) Social History Tobacco Use Types Packs/Day Years Used Date Smoking Tobacco: Heavy Smoker Comments:Smoking History Pac ks/day: 2 Packs Alcohol Use Standard Drinks/Week Comments Yes 0 (1 standard drink = 0.6 oz pur e alcohol) Sex and Gender Information Value Date Recorded Sex Assigned at Not on file Legal Sex Male 12:56 AM SR. SOCIAL MEDIA & MOBILE MANAGER Gender Identity Not on file Sexual [...] as of this encounter Visit Diagnoses Diagnosis Rheumatoid arthritis (HCC) documented in this encounter Care Teams Airconditioning Plant Operator Relationship Specialty Start Date End Date Alberto Stanton PCP - General 07/03/11 08/30/16 documented as of this encounter
--- OUTSIDE RECORDS SUMMARY | 2024-06-14 16:54 | XMS_ITS | Encounter Summary ---
Author Organization [facility] Facility Care Team Providers Care Glass Bulb Machine Adjuster Name Role Phone Alberto Stanton Primary Care Provider Alberto Mccoy Primary Care Provider Lien alejandro Encounter Details Date Type Department Care Team (Late st Contact Info) Description 12/22/2009 - 06/02/2010 11:59 PM TEXTILE CUTTING MACHINE OPERATOR Hospital Encounter [facility] CLINCONV Social History Tobacco Use Types Packs/Day Years Used Date Smoking Tobacco: Never Assessed Sex and Gender Information Value Date Recorded Sex Assigned at Not on file Legal Sex Male 12:56 AM TEXTILE CUTTING MACHINE OPERATOR Gender Identity Not on file [...] on filedocumented in this encounter Care Teams Glass Bulb Machine Adjuster Relationship Specialty Start Date End Date Alberto Stanton PCP - General 02/22/10 07/02/11 Alberto Stanton PCP - General 11/03/09 02/21/10 documented as of this encounter
--- OUTSIDE RECORDS SUMMARY | 2024-06-14 16:54 | XMS_ITS | Encounter Summary ---
Author Organization [facility] Facility Care Team Providers Care Lube Worker Name Role Phone Alberto Stanton Primary Care Provider Unavailabl e Encounter Details Date Type Department Care Team (Latest Contact Info) Description 08/09/2008 9:08 AM CDT - 08/09/2008 11:59 PM CDT Hospital Encounter [facility] CLINCONV Yefri Leon MD [address] [place] [address] Other specified pre-operative examination Social History Tobacco Use Types Packs/Day Years Used Date Smoking Tobacco: Never Assessed Sex and Gender Information Value Date Recorded Sex Assigned at Not on file Legal Sex Male 12:56 AM MANAGER MEDICARE Gender Identity Not on file Sexual Orientation Not on file documented as of this encounter Plan of Treatment Not on file documented as of this encounter Visit Diagnoses Diagnosis Other specified pre-operative examination documented in this encounter Care Teams Lube Worker Relationship Specialty Start Date End Date Alberto Stanton PCP - General 07/21/08 08/17/08 documented as of this encounter
--- OUTSIDE RECORDS SUMMARY | 2024-06-14 16:54 | XMS_ITS | Encounter Summary ---
Author Organization [facility] Facility Care Team Providers Care Die Hardener Name Role Phone Alberto Stanton Primary Care Provider Unavailabl e Encounter Details Date Type Department Care Team (Late st Contact Info) Description 05/11/2009 2:42 PM SPIDER ASSEMBLER - 05/11/2009 11:59 PM SPIDER ASSEMBLER Hospital Encounter [facility] CLINCONV Yefri Leon MD [address] [place] [address] Chronic sinusitis; Headache Social History Tobacco Use Types Packs/Day Years Used Date Smoking Tobacco: Never Assessed Sex and Gender Information Value Date Recorded Sex Assigned at Not on file Legal Sex Male 12:56 AM SPIDER ASSEMBLER Gender Identity Not on file Sexual Orientation Not on file documented as of this encounter Plan of Treatment Not on file documented as of this encounter Visit Diagnoses Diagnosis Chronic sinusitis Unspecified sinusitis (chronic) Headache documented in this encounter Care Teams Die Hardener Relationship Specialty Start Date End Date Alberto Stanton PCP - General 05/11/09 11/02/09 documented as of this encounter
--- OUTSIDE RECORDS SUMMARY | 2024-06-14 16:54 | XMS_ITS | Encounter Summary ---
Author Organization [facility] Facility Care Team Providers Care Lead Sewage Plant Operator Name Role Phone Alberto Stanton Primary Care Provider Unavailabl e Encounter Details Date Type Department Care Team (Late st Contact Info) Description 12/22/2009 3:49 PM CDT Hospital Encounter [place] [place] [address] [facility] [address] [place] [address] Pain in joint, multiple sites; Headache Social History Tobacco Use Types Packs/Day Years Used Date Smoking Tobacco: Never Assessed Sex and Gender Information Value Date Recorded Sex Assigned at Not on file Legal Sex Male 12:56 AM CONCEPTOR Gender Identity Not on file Sexual Orientation [...] as of this encounter Visit Diagnoses Diagnosis Pain in joint, multiple sites Headache documented in this encounter Care Teams Lead Sewage Plant Operator Relationship Specialty Start Date End Date Alberto Stanton PCP - General 11/03/09 02/21/10 documented as of this encounter
--- OUTSIDE RECORDS SUMMARY | 2024-06-14 16:54 | XMS_ITS | Encounter Summary ---
Author Organization [facility] Healthcare Address [address] [place] [address] Care Team Providers Care Quality Control Inspector Name Role Phone Alberto Stanton Primary Care Provider Unavailabl e Encounter Details Date Type Department Care Team (Latest Contact Info) Description 11/04/2009 6:47 AM CDT - 11/04/2009 11:59 PM CDT Hospital Encounter [facility] Alberto Stanton Chronic sinusitis; Special screening for malignant neoplasm of prostate; Other malaise and fatigue; Essential hypertension Social History Tobacco Use Types Packs/Day Years Used Date Smoking Tobacco: Never Assessed Sex and Gender Information Value Date Recorded Sex Assigned at Not on file Legal Sex Male 12:56 AM LOADER SEMICONDUCTOR DIES Gender Identity Not on file Sexual Orientation [...] Diagnoses Diagnosis Chronic sinusitis Unspecified sinusitis (chronic) Special screening for malignant neoplasm of prostate Other malaise and fatigue Essential hypertension Unspecified essential hypertension documented in this encounter Care Teams Quality Control Inspector Relationship Specialty Start Date End Date Alberto Stanton PCP - General 11/03/09 02/21/10 documented as of this encounter
--- OUTSIDE RECORDS SUMMARY | 2024-06-14 16:54 | XMS_ITS | Encounter Summary ---
Author Organization [facility] Healthcare Address [address] [place] [address] Care Team Providers Care Siding Installer Name Role Phone Alberto Stanton Primary Care Provider Unavailabl e Encounter Details Date Type Department Care Team (Late st Contact Info) Description 11/30/2008 12:01 AM CDT - 11/30/2008 11:59 PM CDT Hospital Encounter [facility] Kevin Carpio MD [address] [place] [address] [address] [place] [address] Unspecified hemorrhoids with other complication; Asthma Social History Tobacco Use Types Packs/Day Years Used Date Smoking Tobacco: Never Assessed Sex and Gender Information Value Date Recorded Sex Assigned at Not on file Legal Sex Male 12:56 AM WATER MAINTENANCE SUPERVISOR Gender Identity Not on file Sexual Orientation Not on file documented as of this encounter Plan of Treatment Not on file documented as of this encounter Visit Diagnoses Diagnosis Unspecified hemorrhoids with other complication Asthma Unspecified asthma documented in this encounter Care Teams Siding Installer Relationship Specialty Start Date End Date Alberto Stanton PCP - General 08/18/08 05/10/09 documented as of this encounter
--- OUTSIDE RECORDS SUMMARY | 2024-06-14 16:54 | XMS_ITS | Encounter Summary ---
Author Organization [facility] Healthcare Address [address] [place] [address] Care Team Providers Care Stave Block Splitter Name Role Phone Alberto Stanton Primary Care Provider Unavailabl e Encounter Details Date Type Department Care Team (Late st Contact Info) Description 08/24/2010 12:01 AM CDT - 08/24/2010 11:59 PM CDT Hospital Encounter [facility] Alberto Stanton Chest pain; Other dyspnea and respiratory abnormality Social History Tobacco Use Types Packs/Day Years Used Date Smoking Tobacco: Never Assessed Sex and Gender Information Value Date Recorded Sex Assigned at Not on file Legal Sex Male 12:56 AM PRINCIPAL JAVA SOFTWARE ENGINEER Gender Identity Not on file Sexual [...] Diagnoses Diagnosis Chest pain Unspecified chest pain Other dyspnea and respiratory abnormality documented in this encounter Care Teams Stave Block Splitter Relationship Specialty Start Date End Date Alberto Stanton PCP - General 02/22/10 07/02/11 documented as of this encounter
--- OUTSIDE RECORDS SUMMARY | 2024-06-14 16:54 | XMS_ITS | Encounter Summary ---
Author Organization [facility] Healthcare Address [address] [place] [address] Care Team Providers Care Hair Spinning Machine Operator Name Role Phone Alberto Stanton Primary Care Provider Unavailabl e Encounter Details Date Type Department Care Team (Late st Contact Info) Description 05/06/2009 9:06 AM BATCH PLANT SUPERVISOR - 05/06/2009 11:59 PM BATCH PLANT SUPERVISOR Hospital Encounter [facility] Kevin Jarquin MD [address] [place] [address] [facility] [address] [place] [address] Internal hemorrhoids; Heartburn Social History Tobacco Use Types Packs/Day Years Used Date Smoking Tobacco: Never Assessed Sex and Gender Information Value Date Recorded Sex Assigned at Not on file Legal Sex Male 12:56 AM BATCH PLANT SUPERVISOR Gender Identity Not on file Sexual Orientation Not on file documented as of this encounter Plan of Treatment Not on file documented as of this encounter Visit Diagnoses Diagnosis Internal hemorrhoids Internal hemorrhoids without mention of complication Heartburn documented in this encounter Care Teams Hair Spinning Machine Operator Relationship Specialty Start Date End Date Alberto Stanton PCP - General 08/18/08 05/10/09 documented as of this encounter
--- OUTSIDE RECORDS SUMMARY | 2024-06-14 16:54 | XMS_ITS | Encounter Summary ---
Author Organization [facility] Healthcare Address [address] [place] [address] Care Team Providers Care Rolling Attendant Name Role Phone Alberto Stanton Primary Care Provider Unavailabl e Encounter Details Date Type Department Care Team (Late st Contact Info) Description 10/30/2009 5:54 PM CDT - 10/30/2009 7:54 PM CDT Hospital Encounter [facility] Kevin Blackwell MD [address] [address] Alberto Stanton Chronic sinusitis; Otitis media Social History Tobacco Use Types Packs/Day Years Used Date Smoking Tobacco: Never Assessed Sex and Gender Information Value Date Recorded Sex Assigned at Not on file Legal Sex Male 12:56 AM DIAMOND SIZER AND SORTER Gender Identity Not on file Sexual Orientation Not on file documented as of this encounter Plan of Treatment Not on file documented as of this encounter Visit Diagnoses Diagnosis Chronic sinusitis Unspecified sinusitis (chronic) Otitis media Unspecified otitis media documented in this encounter Care Teams Rolling Attendant Relationship Specialty Start Date End Date Alberto Stanton PCP - General 05/11/09 11/02/09 documented as of this encounter
--- OUTSIDE RECORDS SUMMARY | 2024-06-14 16:54 | XMS_ITS | Encounter Summary ---
Author Organization [facility] Healthcare Address [address] [place] [address] Care Team Providers Care Refrigerating Engineer Head Name Role Phone Alberto Stanton Primary Care Provider Unavailabl e Encounter Details Date Type Department Care Team (Late st Contact Info) Description 04/14/2010 1:17 PM MANAGER ACCOUNT MANAGEMENT - 04/14/2010 4:30 PM MANAGER ACCOUNT MANAGEMENT Hospital Encounter [facility] Kevin Blackwell MD [address] [address] Alberto Stanton Concussion with no loss of consciousness; Fall Social History Tobacco Use Types Packs/Day Years Used Date Smoking Tobacco: Never Assessed Sex and Gender Information Value Date Recorded Sex Assigned at Not on file Legal Sex Male 12:56 AM MANAGER ACCOUNT MANAGEMENT Gender Identity Not on file Sexual Orientation [...] as of this encounter Visit Diagnoses Diagnosis Concussion with no loss of consciousness Fall Unspecified fall documented in this encounter Care Teams Refrigerating Engineer Head Relationship Specialty Start Date End Date Alberto Stanton PCP - General 02/22/10 07/02/11 documented as of this encounter
--- OUTSIDE RECORDS SUMMARY | 2024-06-14 16:54 | XMS_ITS | Encounter Summary ---
Author Organization [facility] Healthcare Address [address] [place] [address] Care Team Providers Care Italian Teacher Name Role Phone Alberto Stanton Primary Care Provider Unavailabl e Encounter Details Date Type Department Care Team (Late st Contact Info) Description 03/08/2009 12:01 AM CDT - 03/08/2009 11:59 PM CDT Hospital Encounter [facility] Kevin Carpio MD [address] [place] [address] [address] [place] [address] Hemorrhoids; Heartburn Social History Tobacco Use Types Packs/Day Years Used Date Smoking Tobacco: Never Assessed Sex and Gender Information Value Date Recorded Sex Assigned at Not on file Legal Sex Male 12:56 AM AIRPLANE FLIGHT ATTENDANT Gender Identity Not on file Sexual Orientation Not on file documented as of this encounter Plan of Treatment Not on file documented as of this encounter Visit Diagnoses Diagnosis Hemorrhoids Heartburn documented in this encounter Care Teams Italian Teacher Relationship Specialty Start Date End Date Alberto Stanton PCP - General 08/18/08 05/10/09 documented as of this encounter
--- OUTSIDE RECORDS SUMMARY | 2024-06-14 16:54 | XMS_ITS | Encounter Summary ---
Author Organization [facility] Healthcare Address [address] [place] [address] Care Team Providers Care Rum Processing Operator Name Role Phone Alberto Stanton Primary Care Provider Unavailabl e Encounter Details Date Type Department Care Team (Late st Contact Info) Description 02/22/2010 11:15 AM CDT - 02/22/2010 11:59 PM CDT Hospital Encounter [facility] Alberto Stanton Backache; Pain in joint, pelvic region and thigh Social History Tobacco Use Types Packs/Day Years Used Date Smoking Tobacco: Never Assessed Sex and Gender Information Value Date Recorded Sex Assigned at Not on file Legal Sex Male 12:56 AM SPECIAL EVENTS DIRECTOR Gender Identity Not on file Sexual [...] as of this encounter Visit Diagnoses Diagnosis Backache Unspecified backache Pain in joint, pelvic region and thigh documented in this encounter Care Teams Rum Processing Operator Relationship Specialty Start Date End Date Alberto Stanton PCP - General 02/22/10 07/02/11 documented as of this encounter
--- OUTSIDE RECORDS SUMMARY | 2024-06-14 16:54 | XMS_ITS | Encounter Summary ---
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, including shoulder Social History Tobacco Use Types Packs/Day Years Used Date Smoking Tobacco: Never Assessed Sex and Gender Information Value Date Recorded Sex Assigned at Not on file Legal Sex Male 12:56 AM RESEARCH PHYSIOLOGIST Gender Identity Not on file Sexual Orientation [...] as of this encounter Visit Diagnoses Diagnosis Sebaceous cyst Local infection of skin and subcutaneous tissue Unspecified local infection of skin and subcutaneous tissue Benign neoplasm of skin of upper limb, including shoulder documented in this encounter Care Teams Director Information Relationship Specialty Start Date End Date Alberto Stanton PCP - General 02/22/10 07/02/11 documented as of this encounter
--- OUTSIDE RECORDS SUMMARY | 2024-06-14 16:54 | XMS_ITS | Encounter Summary ---
Author Organization [facility] Healthcare Address [address] [place] [address] Care Team Providers Care Drying Rack Changer Name Role Phone Unavailable Primary Care Provider Unavailabl e Encounter Details Date Type Department Care Team (Late st Contact Info) Description 06/14/2006 12:29 AM DELIVERY DIRECTOR - 06/14/2006 3:36 AM DELIVERY DIRECTOR Hospital Encounter [facility] Howard Roldan MD [address] ED: [place] [address] Alberto Stanton Social History Tobacco Use Types Packs/Day Years Used Date Smoking Tobacco: Never Assessed Sex and Gender Information Value Date Recorded Sex Assigned at Not on file Legal Sex Male 12:56 AM DELIVERY DIRECTOR Gender Identity Not on file Sexual Orientation Not on file documented as of this encounter Plan of Treatment Not on file documented as of this encounter Visit Diagnoses Not on filedocumented in this encounter
--- OUTSIDE RECORDS SUMMARY | 2024-06-14 16:54 | XMS_ITS | Encounter Summary ---
Author Organization [facility] Care Team Providers Care English As A Second Language Teacher Name Role Phone Alberto Stanton Primary Care Provider Unavailabl e Encounter Details Date Type Department Care Team (Late st Contact Info) Description 08/10/2008 6:11 AM CDT - 08/10/2008 10:41 AM CDT Hospital Encounter [facility] Yefri Leon MD [address] [place] [address] Chronic sinusitis Social History Tobacco Use Types Packs/Day Years Used Date Smoking Tobacco: Never Assessed Sex and Gender Information Value Date Recorded Sex Assigned at Not on file Legal Sex 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
--- OUTSIDE RECORDS SUMMARY | 2024-06-14 16:54 | XMS_ITS | Encounter Summary ---
Author Organization [facility] Healthcare Address [address] [place] [address] Care Team Providers Care Bottler Helper Name Role Phone Alberto Stanton Primary Care Provider Unavailabl e Encounter Details Date Type Department Care Team (Late st Contact Info) Description 08/15/2010 2:21 PM CDT - 08/15/2010 6:50 PM CDT Hospital Encounter [facility] Behzad Gil MD [facility] [place] [address] Alberto Stanton Other dyspnea and respiratory abnormality; Migraine; Hypertrophy of prostate without urinary obstruction and other lower urinary tract symptoms (LUTS) Social History Tobacco Use Types Packs/Day Years Used Date Smoking Tobacco: Never Assessed Sex and Gender Information Value Date Recorded Sex Assigned at Not on file Legal 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
--- OUTSIDE RECORDS SUMMARY | 2024-06-14 16:54 | XMS_ITS | Encounter Summary ---
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, including shoulder (HCC) Social History Tobacco Use Types Packs/Day Years Used Date Smoking Tobacco: Never Assessed Sex and Gender Information Value Date Recorded Sex Assigned at Not on file Legal Sex Male 12:56 AM OPTHALMIC TECH Gender Identity Not on file Sexual [...] as of this encounter Visit Diagnoses Diagnosis 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
--- OUTSIDE RECORDS SUMMARY | 2024-06-14 17:04 | XMS_ITS | Encounter Summary ---
[facility] Organization [facility] Address 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 Procedures PET TUMOR IMG W CT SKL [facility] Jose Roberto Marx [facility] [facility] [address] [place] [address] Referral ID Status Reason Start Date Expiration Date V isits Requested Visits Authorized [id number] Closed [facility] C[facility] 01/19/2019 02/19/2019 1 1 Reason for Visit * PET Scan (Routine) - Closed Specialty Diagnoses / Procedures Referred By Contac t Referred To Contact Nuclear Medicine Diagnoses 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 Procedures PET TUMOR IMG W CT SKL [facility] Jsoe Roberto Marx MD [address] [facility] [address] [place] [phone] Referral ID Status Reason Start Date Expiration Date V isits Requested Visits Authorized [id number] Closed [facility] CTS 01/19/2019 02/19/2019 1 1 Encounter Details Date Type Department Care Team (Latest Contact Info) Description 01/22/2019 10:12 AM CDT - 01/22/2019 11:59 PM CDT Hospital Encounter [facility] Nuclear Medicine [address] [place] [phone] Jose Roberto Marx MD [address] [facility] [address] [place] [address] Discharge Disposition: Home or Self Care Social History Tobacco Use Types Packs/Day Years Used Date Smoking Tobacco: Never Assessed Sex and Gender Information Value Date Recorded Sex Assigned at Not on file Gender Identity Not on file Sexual Orientation Not on file Job Start Date Occupation Industry Not on file Not on file Not on file documented as of this encounter Miscellaneous Notes * Treatment Plan - Juan R Mclain CNMT - 01/22/2019 12:10 PM CDT ?ISTL NM Medication and Flush Protocol [facility] Approved by: [facility] - Medical Executive Committee Approval Date: 12/18/2018 ORDERS ARE ENTERED ???PER PROTOCOL?? Enter the protocol in the patient???s electronic health record using [employer]: .imagingnucmedicineprotocol Communication Orders: o For ordered imaging procedures requiring intravenous access : ??? Initiate a peripheral IV, if not already in place, and discontinue IV prior to discharge (if outpatient). ??? Enter order if needed: Insert Peripheral IV Medication Orders: o Local Anesthetic for use to initiate IV ADULT ??? Lidocaine 4% (L.M.X.4) applied topically ONE TIME prior to IV catheter insertion PRN (L.M.X.4 %should be applied 15 minutes prior to procedure) PEDIATRIC ??? Lidocaine 4% (L.M.X.4) applied topically ONE TIME prior to IV catheter insertion PRN (apply 15 minutes prior to procedure) ??? Sucrose 24%(Tootsweet; Sweet-Ease) oral solution 0.2 mL oral (apply to tongue on pacifier or clean, gloved finger), ONE TIME 2 minutes prior to painful procedure. May repeat dose x1 PRN to complete procedure. o Sodium chloride 0.9% (normal saline) flush 10 mLs PRN for saline lock or medication administration. o For respiratory distress, initiate oxygen and/or increase O2 to maintain saturation greater than 90% Procedure Specific Medications: Adult Procedures & Dosages: o Note: Radiopharmaceuticals dosages with a range are determined by floor press operator calibration PROCEDURE DOSAGE Bone Marrow Imaging In-111 Chloride (Indium-111 Chloride), Administer 2mCi, IV, ONE TIME. OR Tm61x-Xqnqvr Colloid (Dtqaholjdc87g-ttjbmi colloid), Administer 8mCi Tc99m- sulfur colloid, IV, ONE TIME. Bone Pain Therapy - Quadramet Sm-153 (Samarium-153), Administer 1mCi/kg, IV, ONE TIME. Bone Pain Therapy - Xofigo Ra-223 Xofigo, Administer 1.49uCi/kg, IV, ONE TIME. AND Administer 5 mL sodium chloride, IV, repeated up to 5 times for a total of 30mL. Bone Scan Imaging (Whole Body, Limited, 3-Phase, or SPECT) Uw98i-NGJ (Qvhgjtmefx30g-djltmtsnt diphosphonate), Administer 25mCi, IV, ONE TIME. OR Wx65t-GIK (Kdbfidjhkp90g-lmjrfggfhootnacl diphosphonate), Administer 25mCi, IV, ONE TIME. Brain Imaging Od32s-VDXP (Vooqhwrdzs29l-ktfwhltbds-rmpxvuaa-dopfsmfculz), Administer 20mCi, IV, ONE TIME. Brain SPECT Imaging Ux07z-XRCT (Tuaebhhgnd15l-sdfglznfzh-qjgilysd-zaupywrxikw), Administer 30mCi, IV, ONE TIME. OR Wx70f-WFZKN (Ceretec) (Xyhoulihsh73r-irugpzqalmezeiayayo amine oxime), Administer 20mCi, IV, ONE TIME. OR Tl-201 (Thallium Chloride-201), Administer 6mCi, IV, ONE TIME. Cerebral Flow Imaging Aj64e-INHH (Gglpnztsij03o-awqlqtwyef-ukfybski-sbsoqtukolc), Administer 25mCi,IV, ONE TIME. Cisternogram Imaging In-111 DTPA (Indium-111 vgnwegpaky-fmujtzvb-pocfqwmxcnf), Neuroradiologist to administer 500uCi, Intrathecally, ONE TIME. Cystogram Imaging Tc-99m Pertechnetate (Xuahrwtgcn31h-jlcruhlzitade) Administer 1mCi Ih11l-dhuwvzbwsplpq, intra-newby catheter, ONE TIME AND 1000ml NS, intra-newby catheter, ONE TIME. DaTscan Imaging I-123 Ioflupane (Iodine-123 ioflupane), Administer 5mCi, IV, ONE TIME. AND Administer SSKI (Potassium Iodide) drops, 130mg, Orally, ONE TIME one hour prior to radiopharmaceutical injection. Diuretic Renal Imaging Jw08k-SHYR (Fxtvybfzgc52h-exkidijpgj-yhqkaxkr-naubawrhkuf), Administer 5mCi,IV, ONE TIME. AND Administer Lasix (furosemide), 1mg/kg, IV push over 2 minutes, ONE TIME. Maximum dose of 40mg. OR Bk88c-UQV6 (Eyincbyavr53l-chvgaqomjmllkgxxslipqpj), Administer 5mCi, IV, ONE TIME. AND Administer Lasix (furosemide), 1mg/kg, IV push over 2 minutes, ONE TIME. Maximum dose of 40mg. Diverticulum/Meckel's Imaging Tc-99m Pertechnetate (Jozqjeawoi82v- pertechnetate), Administer 15mCi,IV, ONE TIME. Esophageal Reflux Imaging Sd35r-Jvxkbl Colloid (Nbelwyxudw77b-hagbxs colloid), Administer 1mCi in 1oz whole milk or 1oz orange juice. Follow with additional 7oz whole milk or 7 oz orange juice, Orally, ONE TIME. Ga-67 Citrate - Cancer Imaging Ga-67 Citrate (Gallium-67 Citrate), Administer 7mCi, IV, ONE TIME. Ga-67 Citrate - Lymphoma SPECT Imaging Ga-67 Citrate (Gallium-67 Citrate), Administer 10mCi, IV, ONE TIME. Ga-67 Citrate - Whole Body Imaging Ga-67 Citrate (Gallium-67 Citrate), Administer 5mCi, IV, ONE TIME. Gastric Empty Imaging - Solid Meal Eu10a-Vivwok Colloid (Yqmjhcwwxj08d-nbzotu colloid), Administer 500uCi in 4 oz egg beaters or in 1 package of cooked instant oatmeal, Orally, ONE TIME. Gastric Empty Imaging - Liquid Meal Jp70s-Eqemfl Colloid (Thbbnbuiuf57m-pwgjzv colloid), Myazxoiech705tLz in 300mL whole milk, Orally, ONE TIME. GFR Imaging Eq54h-DQDX (Satmrerzwh98p-mvigtpthqv-osffsedw-ckrixomzhaa), Administer 3mCi, IV, ONE TIME. GI Bleed Imaging Tc-99m Pertechnetate (Wnfixrusry09k-zprnvkkahdapp), Administer 22mCi heparanized RBCs, IV, ONE TIME. Hemangioma Imaging NaPYP (sodium pyrophosphate) AND Tc-99m Pertechnetate (Eppuvtqlak90c-vjzvjrecmarhf), Administer 6mg PYP, IV, ONE TIME. AND Administer 20mCi Jh60a-touktmwukhymx, IV, ONE TIME. OR Tc-99m Pertechnetate (Vfermyzawp54t-jkuqfxjgghmqf), Administer 22mCi heparanized RBCs, IV, ONE TIME. Hepatic Artery Perfusion Imaging TC-99m MAA (Ebfjhshjmg02v-gvqxeczcwwuhjmc albumin), InterventionalRadiologist to administer 3 mCi in three divided doses of 1 mCi each, intra-arterial via catheter, ONE TIME. Hepatobiliary Scan Imaging Tc-99m Mebrofenin (Uooznxqhvh18o-fshrymfyug), Administer 5 mCi IV, ONE TIME *For inpatients only, if bilirubin >5mg/dL, Administer 8 mCi IV, ONE TIME *For inpatients only, if bilirubin > 8mg/dL, consult nuclear medicine physician prior to administering radiopharmaceutical Hepatobiliary Scan with Ejection Fraction Imaging Tc-99m Mebrofenin (Rdluhbaacu58r-ffinnyqnzh), Administer 5 mCi IV, ONE TIME. *For inpatients only, if bilirubin >5mg/dL, Administer 8 mCi IV, ONE TIME *For inpatients only, if bilirubin > 8mg/dL, consult nuclear medicine physician prior to administering radiopharmaceutical AND For immediate use - Sincalide (Kinevac) 0.02 mcg/kg IV, ONE TIME, diluted with NS to a total infused volume of 30 mLs. Infuse via an infusion device over 30 minutes. Hepatobiliary Scan with Pre-Treatment Imaging Tc-99m Mebrofenin (Zrvgkxquig44w- mebrofenin), Administer 5 mCi IV, ONE TIME. *For inpatients only, if bilirubin >5mg/dL, Administer 8 mCi IV, ONE TIME *For inpatients only, if bilirubin > 8mg/dL, consult nuclear medicine physician prior to administering radiopharmaceutical AND For immediate use - Sincalide (Kinevac) 0.01 mcg/kg IV, ONE TIME, diluted with NS to a total infused volume of 5 mLs, IV push over 5 minutes. Hot PYP Bone Imaging Ad88c-XmKJI (Upgsagrenj57j-kfnhdm pyrophosphate), Administer 15mCi, IV, ONE TIME. Hot PYP Cardiac Imaging Cw39a-LtNSN (Csbyflwlzm98p-pziiis pyrophosphate), Administer 15mCi, IV, ONETIME. Hot PYP Muscle Imaging Je56y-QdWVQ (Nlijdtuokz91v-suqror pyrophosphate), Administer 20mCi, IV, ONE TIME. In-111 WBC Imaging In-111 Oxine (Indium-111 Oxine), Administer at least 400uCi, up to 800uCi, heparanized WBC, IV, ONE TIME. Lacrimal Imaging Uo51t-Apqguj Colloid (Pentvtntsb38n-idhawz colloid), Administer 2 drops per eye dm695yXo/drop, Droplet, ONE TIME. Liver Imaging Fc94q-Yigcxz Colloid (Gpwmulslxf75o-hnmhso colloid), Administer 6mCi, IV, ONE TIME. Lung Perfusion - Obese Patient Imaging Tc-99m MAA (Hzynzzctqt07b-bndebrtwqgfskng albumin), Administer 5mCi for patients > 35BMI, IV, ONE TIME. Lung Perfusion - Obese Patient Imaging Tc-99m MAA (Rugiuzcmfa47q- macroaggregated albumin),Administer 3mCi for patients > 35BMI, IV, ONE TIME. Lung Perfusion Imaging Tc-99m MAA (Mwnouidxrl93k-mxkjonfojtciicw albumin), Administer 4mCi, IV, ONETIME. Lung Perfusion - Patient Imaging Tc-99m MAA (Zlwoafkiqs84c- macroaggregated albumin), Administer 2mCi for patients , IV, ONE TIME. Lung Ventilation Imaging Xe-133 (Xenon-133), Administer at least 10 mCi, up to 30 mCi, inhalation, ONE TIME. Lymphoscintigraphy - Breast Cancer, Next Day Surgery Ds25t-Zfzxubojbh (Ygcicjmlkh88o-wdkqslxffs), Administer 2mCi in 2 divided doses of 1mCi each, intradermal, ONE TIME. AND Lidocaine 4% (L.M.X.4) applied 30 minutes prior to injections, TOPICAL, ONE TIME PRN. Lymphoscintigraphy - Breast Cancer, Same Day Surgery Je36u-Oecohozdcv (Okzraqsqxy76d-ohloemjbhk), Administer 500uCi in 2 divided doses of 250uCi each, intradermal, ONE TIME. AND Lidocaine 4% (L.M.X.4) applied 30 minutes prior to injections, TOPICAL, ONE TIME PRN. Lymphoscintigraphy - Malignant Melanoma, Next Day Surgery Wq22d-Hkfdzdqbig (Rwunfswbkb67e-prenjfrntg), Administer 2mCi in 4 divided doses of 0.5mCi each, intradermal, ONE TIME. AND Lidocaine 4% (L.M.X.4) applied 30 minutes prior to injections, TOPICAL, ONE TIME PRN. Lymphoscintigraphy - Malignant Melanoma, Same Day Surgery Sz51a-Qkzphslhcd (Jropvefzgn27y-qxtztadkcx), Administer 500uCi in 4 divided doses of 125uCi each, intradermal, ONE TIME. AND Lidocaine 4% (L.M.X.4) applied 30 minutes prior to injections, TOPICAL, ONE TIME PRN. Lymphoscintigraphy - Malignant Melanoma, Small Body Area, Next Day Surgery Kp95t-Qpymkzkpje (Ckdbogdgfi32l-rwzucjapmr), Administer 2mCi in 2 divided doses of 1mCi each, intradermal, ONE TIME. AND Lidocaine 4% (L.M.X.4) applied 30 minutes prior to injections, TOPICAL, ONE TIME PRN. Lymphoscintigraphy - Malignant Melanoma, Small Body Area, Same Day Surgery Zd88l-Cgvypjwblz (Uibyhxodox08q-uctyvgulqu), Administer 500uCi in 2 divided doses of 250uCi each, intradermal, ONE TIME. AND Lidocaine 4% (L.M.X.4) applied 30 minutes prior to injections, TOPICAL, ONE TIME PRN. MIBG Imaging I-123 MIBG (Iodine-123 metaiodobenzylguandidine), Administer 10mCi, IV, ONE TIME. Microsphere Mapping Tc-99m MAA (Qiybrhhdsm21w-tvthtovhzsisyjz albumin), Interventional Radiologist to administer 4 mCi in two divided doses of 2 mCi each, intra-arterial via catheter, ONE TIME. MUGA/RVG Imaging Tc-99m Pertechnetate (Oiyxgpkfdn42y-jdztbbgrwcozs), Administer 22mCi heparanized RBCs, IV, ONE TIME. Myocardial Dual Isotope Imaging Tl-201 (Thallium Chloride-201) AND Sf95m-Mwjgjvv (Stfnetjinp56p-xiclghf), Administer 3mCi Tl-201for resting images, IV, ONE TIME AND Administer 8mCi Rl39u-uyyxlrp for stress images, IV, ONE TIME. Myocardial Planar Imaging Nt14l-Fgjvcww (Hvnswyapog28e-Xlykseb), Administer 30mCi, IV, ONE TIME edouard images, ONE TIME for stress images. Myocardial Rest Imaging - SPECT Imaging Tl-201 (Thallium Chloride-201), Administer 4mCi, IV, ONE TIME. OR Kl81a-Dakarzd (Kkhizgemdw93q-Xeebsaa), Administer 4mCi for patients <180 lbs, IV, ONE TIME. OR Ts95k-Kiosaar (Lgywqxibpj80h-Fwnnnki), Administer 5mCi for patients 181-240 lbs, IV, ONE TIME. OR Zj91f-Qhycspa (Kfofqufffh77p-Chxxfff), Administer 6mCi for female patients 241- 265 lbs, IV, ONE TIME. OR Fr40w-Qbirqzk (Hshresfnlv81d-Wcbvcrh), Administer 6mCi for male patients 241-330 lbs, IV, ONE TIME. OR Wg44c-Hpukfon (Bfxuogyaxg93m-Asbhdzu), Administer 8mCi for female patients 266- 399 lbs, IV, ONE TIME. OR Kk80w-Jkaqohb (Pqliatxcaa71h-Fxyjkxt), Administer 8mCi for male patients 331-299 lbs, IV, ONE TIME. Myocardial Stress - SPECT Imaging Km58c-Svkxhdb (Aqejqrspqu06l-Pjjlrup), Administer 12mCi for patients <180 lbs, IV, ONE TIME. OR Uq58i-Stmvufz (Guxfzzdgoc56k-Kngkwmf), Administer 15mCi for patients 181-240 lbs, IV, ONE TIME. OR Ja82a-Gvunjml (Ajjpvhtvar17c-Nmmzhvu), Administer 18mCi for female patients 241- 265 lbs, IV, ONE TIME. OR Fu01i-Mtjgvyd (Nzckacqvfg22b-Phypzxv), Administer 18mCi for male patients 241- 330 lbs, IV, ONE TIME. OR El85v-Pttenog (Bgadbobavn00g-Gmftpyy), Administer 24mCi for female patients 266- 399 lbs, IV, ONE TIME. OR Rf24y-Metsbes (Ckyrbaewpr89n-Ayuwfuk), Administer 24mCi for male patients 331- 299 lbs, IV, ONE TIME. Myocardial Thallium Stress - Planar Imaging Tl-201 (Thallium Chloride-201), Administer 3mCi IV, ONETIME. Myocardial Viability Imaging Tl-201 (Thallium Chloride-201), Administer 3mCi, IV, ONE TIME. AND Administer 1mCi, IV, ONE TIME 3.5 hours post rest injection. Octreoscan - Planar Imaging In-111 Pentetreotide (Indium-111 Pentetreotide), Administer 3mCi, IV, ONE TIME. Octreoscan - SPECT Imaging In-111 Pentetreotide (Indium-111 Pentetreotide), Administer 6mCi, IV, ONE TIME. Parathyroid Imaging Rw36p-Ylzoazqfy (Qxsiqybwfe18a-cpghsaejy), Administer 20mCi, IV, ONE TIME. PET/CT Axumin F-18 Axumin (Rsqqgcts92-stxvzlfyclww), Administer 10mCi, IV, ONE TIME. PET/CT Bone Scan F18-NaF (Wlppuron68-iplbli fluoride), Administer 0.11mCi/kg with at least 8mCi, upto 14mCi, IV, ONE TIME. PET/CT Brain Imaging F18-FDG (Tjwuvgoc47-yvegxovpfccfixysw), Administer 0.11mCi/kg with at least 8mCi, up to 14mCi, IV, ONE TIME. PET/CT Dotatate Imaging Ga-68 Dotatate (Gallium-68 Dotatate), Administer 5.4mCi, IV, ONE TIME. PET/CT Limited, Standard, or Whole-Body Oncology Imaging F18-FDG (Lwkzifqk08- flurodeoxyglucose), Administer 0.11mCi/kg with at least 8mCi, up to 14mCi, IV, ONE TIME. PET/CT Myocardial Scan F18-FDG (Fpermaoc42-vcbvuakwwtiyzzgpa), Administer 0.11mCi/kg with at least 8mCi, up to 14mCi, IV, ONE TIME. Post GFR Imaging Ek37b-XYJL (Qrammmwoyu57l-fadfnushjs-kvllkxod-fewplojcbwj), Administer 12mCi, IV, ONE TIME. OR Le51d-XFV8 (Tfmermuply91b-javkaneatrlwivezzjsxuas), Administer 5mCi, IV, ONE TIME. PY Breath Test C-14 Urea (Carbon-14 Urea), Administer 1 uCi, Orally, ONE TIME. Renal Cortical Imaging Mm62x-HNQZ (Eikmibhrya49n-jaovdbblptuqjeaflx acid), Administer 5mCi, IV, ONETIME. Renal Perfusion Imaging Jt11s-NPOJ (Celriarret57m-dsrcvvabie-iqwdssmk-kwlkrpdbndw), Administer 15mCi, IV, ONE TIME. OR Tu47y-KRB9 (Cuksmhcdrr21w-jdrrhyejskncnmdqlpledwh), Administer 5mCi, IV, ONE TIME. Renogram Imaging Gv16t-VDVI (Ogojvylmuu99u-hbcguottig-qrdgviyc-rktfuvwclag), Administer 5mCi, IV, ONE TIME. OR Ux10b-UKK6 (Ozzrtrvhuw15s-ymaihykaajrfhuhrsnmkgww), Administer 5mCi, IV, ONE TIME. Renogram with Flow Imaging Xb35k-WINP (Iqmodveqbr73g-msyndkoerz-gdmtzemf-ckshfzwgong), Administer 5mCi, IV, ONE TIME. OR Fe45d-GVC8 (Oxuxattkny65h-qdicafbkazskxapeydjplrd), Administer 5mCi, IV, ONE TIME. Salivary Imaging Tc-99m Pertechnetate (Jytygytqmy78z-krzkejogzpqdo), Administer 5mCi, Orally, ONE TIME. Shunt Patency Imaging Gu76k-NOJP (Duspesiwct37a-seoibzyzfs-okpypinh-ofwlflbjgep), Neuroradiologist to administer 500uCi, intra-shunt reservoir, ONE TIME. Substernal Thyroid Imaging I-131 Na Iodide (Iodide-131 Na Iodide), Administer 100 uCi, Orally, ONE TIME. Ko91m-EYZ Imaging Jp38e-Gnetmcn (Obrbnonxnq51c-Vgpikwq), Administer at least 15mCi, up to 20mCi, heparanized WBC, IV, ONE TIME. Testicular Imaging Tc-99m Pertechnetate (Dxrphucmzx25j-kykuvmwlybaon), Administer 15mCi, IV, ONE TIME. Thallium Whole Body Scan Imaging Tl-201 (Thallium Chloride-201), Administer 3mCi, IV, ONE TIME. Thyrogen Injection Thyrogen (thyrotopin jade), Administer 0.9mg, deep IM, every 24 hours for 2 doses. Thyroid Imaging Tc-99m Pertechnetate (Fryscfslnb58f-laahmfxgwtafi), Administer 5mCi, IV, ONE TIME. Thyroid Scan/Uptake I-123 Na Iodide (Iodide-123 Na Iodide), Administer at least 200 uCi, up to 400 uCi, Orally, ONE TIME. Thyroid Uptake I-131 Na Iodide (Iodide-131 Na Iodide), Administer at least 5 uCi, up to 25 uCi, Orally, ONE TIME. Vasotec/Enalaprilat Renal Imaging Hx88g-ILYA (Qantfmxbhm43d-siyxzmiejc-evgvabdr-uuauzszfnhy), Administer 5mCi, IV, ONE TIME. AND Administer Enalaprilat (Vasotec) 0.04mg/kg with a maximum dose of 2.5mg. Dilute to 5mL total volumewith normal saline and infuse via infusion device over 5 minutes. OR Ne31l-VGY8 (Jkpqqhsegu26r-fwsiwxfegrofdzfhxivflou), Administer 5mCi, IV, ONE TIME. AND Administer Enalaprilat (Vasotec) 0.04mg/kg with a maximum dose of 2.5mg. Dilute to 5mL total volumewith normal saline and infuse via infusion device over 5 minutes. Venography Imaging NaPYP (sodium pyrophosphate) AND Tc-99m Pertechnetate (Yzgjcgucyy86a-hyyxbflckgmph), Administer 6mg NaPYP, IV, ONE TIME AND Administer 15mCi Lk49s-yqwoyqhzlxboh, IV, ONE TIME. Whole Body I-131 Imaging I-131 Na Iodide (Iodide-131 Na Iodide), Administer 3 mCi, Orally, ONE TIME. Pediatric Procedures & Dosages: o Note: Radiopharmaceuticals dosages with a range are determined by floor press operator calibration PROCEDURE DOSAGE Bone Scan Imaging (Whole Body, Limited, 3-Phase, or SPECT) Di12p-KTB (Dvzbvnpydb06z-znskwpcux diphosphonate), Administer 0.25mCi/kg with at least 1mCi, up to 20mCi, IV, ONE TIME. Brain Imaging Ic32v-TWKK (Iownbyxcot98h-jmxybdvjpn-tzugdeah-lhlfvwsfcwp), Administer 0.8mCi/kg with at least 5mCi, up to 20mCi, IV, ONE TIME. Cisternogram Imaging In-111 DTPA (Indium-111 isxcyscjer-mdsmtvnx-hylkabfhufa), Neuroradiologist to administer 4uCi/kg with at least 50uCi, up to 300uCi, Intrathecally, ONE TIME. Cystogram Imaging Tc-99m Pertechnetate (Zkrzhfhvpc57o-fxvleincdilhg) Administer 1mCi, intra-newby catheter, ONE TIME AND Administer 500ml-1000ml NS, intra-newby catheter, ONE TIME. Diuretic Renal Imaging Ez81b-THVT (Aqmraxrwva48g-sbknziwkpc-yhnmmefb-daxigwyghkk), Administer 0.2mCi/kg with at least 2.5mCi, up yz49dVu , IV, ONE TIME. AND Administer Lasix (furosemide), 1mg/kg, up to 40mg, IV push over 2 minutes, ONE TIME. OR Wa84k-VUN0 (Iiasgbafzq86q-vxavxsqqzfpbghhwpqmjgib), Administer 0.1mCi/kg with at least 1mCi, up to 5mCi, IV, ONE TIME. AND Administer Lasix (furosemide), 1mg/kg, up to 40mg, IV push over 2 minutes, ONE TIME. Diverticulum/Meckel's Imaging Tc-99m Pertechnetate (Jydlnwmsvk12r- pertechnetate), Administer 0.05mCi/kg with at least 2.5mCi, up to 15mCi, IV, ONE TIME. Esophageal Reflux Imaging - <1yoa Gu94o-Rblrtf Colloid (Iotnzjqpvo42o-hszcmy colloid), Administer 0.1mCi for patients <3.5lbs, Orally, ONE TIME. OR Administer 0.2mCi for patients 3.5-6.5lbs, Orally, ONE TIME. OR Administer 0.3mCi for patients >6.5lbs, Orally, ONE TIME. *For all administrations, mix half of formula or breast milk feeding amount with radiopharmaceutical. Follow with remainder of feeding amount. Esophageal Reflux Imaging - >1yoa Mu06e-Hmqcir Colloid (Kxhnywhrcb60c-krvyfx colloid), Administer 0.5mCi in 1 oz whole milk, Orally, ONE TIME. Follow with 7 oz whole milk. Ga-67 Citrate - Infection Imaging Ga-67 Citrate (Gallium-67 Citrate), Administer 0.055mCi/kg with at least 0.5mCi, up to 5.5mCi, IV, ONE TIME. Ga-67 Citrate - Malignancy Imaging Ga-67 Citrate (Gallium-67 Citrate), Administer 0.110mCi/kg with at least 0.5mCi, up to 8mCi, IV, ONE TIME. Ga-67 Citrate - Whole Body Imaging Ga-67 Citrate (Gallium-67 Citrate), Administer 0.05mCi/kg with at least 0.25mCi, up to 5mCi, IV, ONE TIME. Gastric Empty Imaging - Liquid Meal Jp53c-Hznbhb Colloid (Sbzmqhtuvu95n-hsfjiz colloid), Administer0.5mCi in 300mL whole milk or formula, Orally, ONE TIME. Gastric Empty Imaging - Solid Meal Cn08t-Daugmb Colloid (Nsxuxvdkaf77q-hqnoku colloid), Administer 500uCi in 4 oz egg beaters or in 1 package of cooked instant oatmeal, Orally, ONE TIME. GI Bleed Imaging Tc-99m Pertechnetate (Rqhckhuusj31d-tzmapstlzvxoe), Administer 0.2mCi heparanized RBCs with at least 1mCi, up to 20mCi, IV, ONE TIME. Hemangioma Imaging Tc-99m Pertechnetate (Aqvxncmgiw45e-pkuadzmpzqoix), Administer 0.2mCi heparanized RBCs with at least 1mCi, up to 20mCi, IV, ONE TIME. Hepatobiliary Scan Imaging Tc-99m Mebrofenin (Jhjkwauebw07x-rxvwfpwhpl), Administer .05mCi/kg with a at least 1mCi, up to 5mCi IV, ONE TIME Hepatobiliary Scan with Ejection Fraction Imaging Tc-99m Mebrofenin (Nwzhedbmyt02u-cqilawsjcv), Administer .05mCi/kg with a at least 1mCi, up to 5mCi IV, ONE TIME AND For immediate use - Sincalide (Kinevac) 0.02 mcg/kg IV, ONE TIME, diluted with NS to a total infused volume of 30 mLs. Infuse via an infusion device over 30 minutes. Hepatobiliary Scan with Pre-Treatment Imaging Tc-99m Mebrofenin (Rlpcdtnzgr07j- mebrofenin), Administer 0.05mCi/kg with a at least 1mCi, up to 5mCi IV, ONE TIME AND For immediate use - Sincalide (Kinevac) 0.01 mcg/kg IV, ONE TIME, diluted with NS to a total infused volume of 5 mLs., IV push over 5 minutes. Hot PYP Bone Imaging Ra39k-JoOBU (Xswphvrxnq65u-hjszjx pyrophosphate), Administer 0.6mCi/kg, with at least 2.5mCi, up to 20mCi IV, ONE TIME. Hot PYP Cardiac Imaging Pk64z-KeCLJ (Juoyqdprno51k-khjkvr pyrophosphate), Administer 0.6mCi/kg, with at least 2.5mCi, up to 20mCi IV, ONE TIME. In-111 WBC Imaging In-111 Oxine (Indium-111 Oxine), Administer 20uCi/kg with at least 50uCi, up to 300uCi, heparanized WBC, IV, ONE TIME. Liver/Spleen Imaging Ag06n-Lyecxx Colloid (Iyozguipkf49c-koszup colloid), Administer 0.05mCi/kg with at least 0.4mCi, up to 3mCi, IV, ONE TIME. Lung Perfusion Imaging Tc-99m MAA (Qqmbplmndu08z-vvvmjoqtayfaiae albumin), Administer 0.03mCi/kg, with at least 0.4mCi, up to 3mCi IV, ONE TIME. Lung Ventilation Imaging Xe-133 (Xenon-133), Administer at least 4 mCi, up to 7 mCi, inhalation, ONE TIME. MIBG Imaging I-123 MIBG (Iodine-123 metaiodobenzylguandidine), Administer 0.14mCi/kg with at least 2mCi, up to 10mCi, IV, ONE TIME AND Administer SSKI (Potassium Iodide) drops 1 hour prior to radiopharmaceutical injection. ??? * to 1 month: 16mg, Orally, ONE TIME. ??? * 1 month to 3 years of age: 32mg, Orally, ONE TIME. ??? * Greater than 3 years to 18 years of age: 65mg, Orally, ONE TIME. MUGA/RVG Imaging Tc-99m Pertechnetate (Smcytrojnx00h-mnevozffjgpfi), Administer 0.2mCi/kg heparanized RBCs with at least 1mCi, up to 20mCi, IV, ONE TIME. Myocardial Rest Imaging - SPECT Imaging Xj88l-Fjmwrak (Evepjpxgjz34w-Jcmybku), Administer at least 5.18mCi, up to 6.08mCi, IV, ONE TIME. Consult authorized user prior to administration. Dosage based on Sanchez's Rule (age+1/age+7)*8 Myocardial Stress Imaging - SPECT Imaging Wv93n-Wafrsna (Zdvdprjdsa86r-Qfdngtw), Administer at least 15.5mCi, up to 18.24mCi, IV, ONE TIME. Consult authorized user prior to administration. Dosage based on Sanchez's Rule (age+1/age+7)*24 Myocardial Viability Imaging Tl-201 (Thallium Chloride-201), Administer .035mCi/kg, at least 0.25mCi, up to 2mCi, IV, ONE TIME. Octreoscan - Planar Imaging In-111 Pentetreotide (Indium-111 Pentetreotide), Administer 0.04mCi/kg with at least 0.5mCi, up to 6mCi, IV, ONE TIME. Octreoscan - SPECT Imaging In-111 Pentetreotide (Indium-111 Pentetreotide), Administer 0.08mCi/kg with at least 0.5mCi, up to 6mCi, IV, ONE TIME. Parathyroid Imaging Ir04o-Gpawumqbo (Xbwdrfevjf66n-ytavgvznc), Administer at least 5.18mCi, up to 6.08mCi, IV, ONE TIME. Dosage based on Sanchez's Rule (age+1/age+7)*8 PET/CT Brain Imaging F18-FDG (Edhsagcp51-yijaxkcrirsaulkgb), Administer 0.11mCi/kg with at least 1mCi, up to 10mCi, IV, ONE TIME. PET/CT Limited, Standard, or Whole-Body Oncology Imaging F18-FDG (Enczczhj82- flurodeoxyglucose), Administer 0.11mCi/kg with at least 2mCi, up to 10mCi, IV, ONE TIME. Renal Cortical Imaging Fk75s-ILDJ (Vfwfcjyken26g-xiwwobseimwbditrqk acid), Administer 0.05mCi/kg with at least 0.5mCi, up to 2.5mCi, IV, ONE TIME. Renogram Imaging Ux87b-ROZR (Waublwhwhv12k-dbeuqpbffb-ndqymzyq-feowhgbvwsd), Administer 0.2mCi/kg with at least 2.5mCi, up rn05wCv OR Ty99u-RZU2 (Izdolkeywq67o-bflmghiuffhyktvmprxtiuo), Administer 0.1mCi/kg with at least 1mCi, up to 5mCi, IV, ONE TIME. Renogram with Flow Imaging Yt33m-KLSF (Brzghqwngr80x-syukqhokbf-jpuxsrff-wmqfrrqstlb), Administer 0.2mCi/kg with at least 2.5mCi, up ht28nDn OR Or25d-VHM7 (Gxqunuumlm55o-fxaruenbmhhglekdgxcxdpd), Administer 0.1mCi/kg with at least 1mCi, up to 5mCi, IV, ONE TIME. Wn90n-GJS Imaging Cf24l-Ngasqrd (Xnrcuclhuv67g-Etliexx), Administer 0.6mCi/kg heparanized WBC, IV, ONE TIME. Confirm calculated dose with nuclear medicine physician prior to injection. Testicular Imaging Tc-99m Pertechnetate (Jzonyrzboi80b-rtlenlybjryxz), Administer 0.4mCi/kg with atleast 5mCi, up to 15mCi, IV, ONE TIME. Thyroid Imaging Tc-99m Pertechnetate (Ovkbhgyhyx43i-soscfvlmfgivh), Administer 0.07mCi/kg with at least 1mCi, up to 5mCi, IV, ONE TIME. Thyroid Scan/Uptake I-123 Na Iodide (Iodide-123 Na Iodide), Administer at least 100uCi, up to 200uCi, Orally, ONE TIME. Thyroid Scan/Uptake I-131 Na Iodide (Iodide-131 Na Iodide), Administer at least 2uCi, up to 20uCi, Orally, ONE TIME. Vasotec/Enalaprilat Renal Imaging Ww32a-BNHX (Mdoaptoxzv85f-pqhbrarhdq-xuxwzuck-zojipytpwku), Administer 0.2mCi/kg with at least 2.5mCi, up fi44wLc AND Administer Enalaprilat (Vasotec) 0.03mg/kg, up to 2.5mg. Dilute to 5mL total volume with normal saline and infuse via infusion device over 5 minutes. OR Fw99z-SWE2 (Aztfspekpd93u-ugmhdgyjahrixscvaggqogg), Administer 0.1mCi/kg with at least 1mCi, up to 5mCi, IV, ONE TIME. AND Administer Enalaprilat (Vasotec) 0.03mg/kg, up to 2.5mg. Dilute to 5mL total volume with normal saline and infuse via infusion device over 5 minutes. 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 The lesion is likely too small to be reliably corrected by PET. No definite hypermetabolic focal head and neck mucosal lesion is identified. No hypermetabolic cervical lymphadenopathy seen. No distant metastasis. Dictated by Dr. 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 12.3 mCi Injection site: ?Right antecubital Uptake time: ? 46 minutes Blood glucose: ? 79 mg/dL. CT scan type: ?Skull base through mid thigh. CT technique: ?Noncontrast CT for attenuation correction and anatomic localization. Axial, sagittal, coronal and MIP images reviewed. All SUVs reported are maximal within the region of interest and have units of MBq/mL. CT dose length product 1260.2 mGy-cm. Scan quality: Satisfactory. FINDINGS: Significant PET/CT findings: There is subtle asymmetric nodular thickening of the right vocal cord compared to the left. No focal increased FDG uptake is identified in this region. No hypermetabolic head and neck mucosal lesion is seen. Clear paranasal sinuses. Symmetric uptake in both parotid and submandibular glands. No hypermetabolic cervical lymphadenopathy is identified. A left posterior cervical lymph node measure 8 mm in size, with maximum SUV of 2.4, is reactive. Unremarkable thyroid gland uptake. Incidental PET/CT findings: No hypermetabolic supraclavicular lymphadenopathy is seen. No axillary lymphadenopathy. No hypermetabolic or enlarged mediastinal or hilar lymphadenopathy is seen. Mildly prominent superior mediastinal and right paratracheal nodes are reactive. No hypermetabolic pulmonary nodule is identified. No pleural effusion or hypermetabolic pleural nodularity. No pericardial effusion. Normal heart size. 2 to 4 mm size pulmonary nodules in the left lower lobe due to small to be reliably characterized by PET. Liver and spleen demonstrate expected parenchymal activity without focal lesion. Unremarkable adrenal glands, pancreas and gallbladder. Physiologic bowel activity is seen. No hypermetabolic or enlarged retroperitoneal, mesenteric or pelvic lymphadenopathy is identified. No ascites. No peritoneal nodule seen. Enlarged prostate. Bilateral fat-containing inguinal hernia. No focal hypermetabolic osseous lesion is seen. Multilevel facet arthropathy. 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 CT scan type: Skull base through mid thigh. CT technique: Noncontrast CT for attenuation correction and anatomic localization. Axial, sagittal, coronal and MIP images reviewed. All SUVs reported are maximal within the region of interest and have units of MBq/mL. CT dose length product 1260.2 mGy-cm. Scan quality: Satisfactory. FINDINGS: Significant PET/CT findings: There is subtle asymmetric nodular thickening of the right vocal cord compared to the left. No focal increased FDG uptake is identified in this region. No hypermetabolic head and neck mucosal lesion is seen. Clear paranasal sinuses. Symmetric uptake in both parotid and submandibular glands. No hypermetabolic cervical lymphadenopathy is identified. A left posterior cervical lymph node measure 8 mm in size, with maximum SUV of 2.4, is reactive. Unremarkable thyroid gland uptake. Incidental PET/CT findings: No hypermetabolic supraclavicular lymphadenopathy is seen. No axillary lymphadenopathy. No hypermetabolic or enlarged mediastinal or hilar lymphadenopathy is seen. Mildly prominent superior mediastinal and right paratracheal nodes are reactive. No hypermetabolic pulmonary nodule is identified. No pleural effusion or hypermetabolic pleural nodularity. No pericardial effusion. Normal heart size. 2 to 4 mm size pulmonary nodules in the left lower lobe due to small to be reliably characterized by PET. Liver and spleen demonstrate expected parenchymal activity without focal lesion. Unremarkable adrenal glands, pancreas and gallbladder. Physiologic bowel activity is seen. No hypermetabolic or enlarged retroperitoneal, mesenteric or pelvic lymphadenopathy is identified. No ascites. No peritoneal nodule seen. Enlarged prostate. Bilateral fat-containing inguinal hernia. No focal hypermetabolic osseous lesion is seen. Multilevel facet arthropathy. IMPRESSION: Subtle asymmetric nodular thickening of the right vocal cord is not associated with increased FDG uptake. The lesion is likely too small to be reliably corrected by PET. No definite hypermetabolic focal head and neck mucosal lesion is identified. No hypermetabolic cervical lymphadenopathy seen. No distant metastasis. Dictated by Dr. 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
--- OUTSIDE RECORDS SUMMARY | 2024-06-14 17:04 | XMS_ITS | Continuity of Care Document ---
Author Organization [facility] Address [address] [place] [address] Phone Care Team Providers Care Noise Tester Name Role Phone Tuan GARCIA, Adalid Unavailable Unavailabl e Allergies, Adverse Reactions, Alerts Substance Reaction Status Criticality HYDROCODONE BITARTRATE itching Active No In formation acetaminophen itching Active No Information Medications Medication Instructions Dosage Effective Dates (start - stop) Status Comments azelastine 137 mcg (0.1 %) nasal spray aerosol spray 2 spray by intranasal route 2 times every day in each nostril - Active Breztri Aerosphere 160 mcg-9mcg-4.8mcg/act uation HFA aerosol inhaler inhale 2 puff by inhalation route 2 times every day in the morning and evening 2.00 puff - Active sample Ryaltris 665 mcg-25 mcg/spray nasal spray spray 2 spray by intranasal route 2 times every day in each nostril 2.00 spray - Active sample famotidine 40 mg tablet take 1 tablet by oral route every day at bedtime 40 MG - Active ropinirole 2 mg tablet take 1 tablet by oral route 3 times every day 2 MG - Active OMEPRAZOLE (unknown strength) take 1 capsule by oral route every day before a meal Not Available - Active FINASTERIDE (unknown strength) take 1 tablet by oral route every day Not Available - Active tamsulosin 0.4 mg capsule take 1 capsule by oral route every day 1/2 hour following the same meal each day 0.4 MG - Active RASUVO (unknown strength) inject 0.15 milliliter by subcutaneous route every week Not Available - Active FOLIC ACID (unknown strength) Not Available - Active Procedures Procedure Date OFFICE/OUTPATIENT VISIT EST EVALUATION OF WHEEZING AIRWAY INHALATION TREATMENT Albuterol non-comp unit AIRWAY INHALATION TREATMENT Ipratropium bromide non-comp IMMUNOTHERAPY INJECTIONS OFFICE/OUTPATIENT VISIT EST PERCUT ALLERGY SKIN TESTS EXHALED NITRIC OXIDE CLIFF OFFICE/OUTPATIENT VISIT NEW OFFICE/OUTPATIENT VISIT EST NASAL ENDOSCOPY DX OFFICE/OUTPATIENT VISIT EST BREATHING CAPACITY TEST OFFICE/OUTPATIENT VISIT EST SPMTRY W/VC EXPIRATORY WON +-MXML VOL VN TJ OFFICE OUTPT EST 25 MIN Advance Directives Directive Yes / No Effective Date File Name No Information Encounters Encounter Description Practice Location Reason(s) For Visit Diagnoses Date Provider Providers Copied on Encounter OFFICE/OUTPA TIENT VISIT EST [facility] , [address], [place], [address], tel:[phone] [facility] Follow up (chief complaint) Chronic coughChronic GERDOther seasonal allergic rhinitisLaryng eal cancer 3 Tuan Hamsa. [address], [place], [place], [id number]. tel:[phone] OFFICE/OUTPA TIENT VISIT EST [facility] , [address], [place], [address], tel:[phone] [facility] allergy evaluation (chief complaint) Body mass index [BMI] 27.0-27.9, adultChronic coughChronic panethmoidal sinusitisOther seasonal allergic rhinitisOther allergic rhinitisChroni c GERD 3 Tuan Hamsa. [address], [place], [place], [id number]. tel:[phone] OFFICE/OUTPA TIENT VISIT NEW [facility] , [address], [place], [address], [place] tel:[phone] [facility] allergy evaluation (chief complaint) CoughChronic pansinusitisAl lergy to pollen 7 Tuan Hamsa. [address], [place], [place], [id number]. tel:[phone] OFFICE/OUTPA TIENT VISIT EST [facility] , [address], [place], [address], [place] tel:[phone] [facility] nasal congestion (chief complaint)o ccasional coughing (chief complaint) Chronic nasopharyngiti s 2 Tuan Hamsa. [address], [place], [place], [id number]. tel:[phone] OFFICE/OUTPA TIENT VISIT EST [facility] , [address] , [place], [address], [place] tel:[phone] [facility] follow up (chief complaint) Chronic rhinitisChroni c rhinitis 2 Tuan Hamsa. [address], [place], [place], [id number]. tel:[phone] OFFICE/OUTPA TIENT VISIT EST [facility] , [address], [place], [address], [place] tel:[phone] [facility] sick (chief complaint) Cough 2 Tuan Hamsa. [address], [place], [place], [id number]. tel:[phone] OFFICE OUTPT EST 25 MIN [facility] , [address], [place], [address], [place] tel:[phone] [facility] follow up (chief complaint) Chronic nasopharyngiti sRespiratory abnormality, unspecified 2 Tuan Hamsa. [address], [place], [place], [id number]. tel:[phone] Family History Family Member Type Diagnosis Age At Onset No Information Immunizations Vaccine Date Status Comments Influenza, quadrivalent, hig h dose, injectable, split virus, preservative free, 0.7 mL dose, Fluzone High-Dose Quad administered Source: Other Provid er Pneumococcal polysaccharide PPV23 adminis tered Source: Other Provider SARS-COV-2 (COVID-19) vaccin e, vector non-replicating, recombinant spike protein-Ad26, preservative free, 0.5 mL (iZotope) administered Source: Other Provid er Payers Payer name Insurance type Covered green party ID Authorvikram treviño(s) [facility] Medicare Complete HMO OT [id number] Social History Type Description Quantity Date Captured Comments Alcohol Use Details Unknown Caffeine Use Details Unknown Tobacco Use Status Current non-smoker Smoking Status Never smoker Sex Male Vital Signs Date / Time: Height Weight BMI Pulse Rate Blood Pressure Temperature Respiratory Rate Body Surface Area Head Circumference Head Circ. Percentile Wt./Ollie. Percentile BMI percentile Pulse Ox Inhaled Ox 10:28 AM 73.00 in 95.254 kg (210.00 lbs) 27.7 1 kg/m eter (2) 78 /min 132/76 mm[Hg] Chief Complaint And Reason For Visit From encounter dated '09/17/2022 10:30'. Follow up (chief complaint). Description: Very pleasant 77 year old gentleman is here fora follow up, last seen on the 29 of August with a cough. Patient has a history of rheumatoid arthritis and the recent history of laryngeal cancer status post three surgeries. Follows up with his oncologist very often, when he saw me the cough was worse and I had started him on multiple medicationsincluding breztri for bronchitis, he was taking Hui D and was asked to stop it for concerns that it could be drying his throat and was asked to take Guaifenesin liquid instead. Before coming to me he had tried levaquin argument and zithromax and the cough did not get better. He was given ryaltris nose spray which really helped. Patient currently states that the cough is completely gone, he continues to take the Famotidine and a proton pump inhibitor one in the morning one at night for his reflux the reflux is under control symptoms are not worse and he is extremely thrilled and happy withthat. Allergy skin test was done in 2017 allergic to cat, tree, weed but since he has done well on this regimen and has no sinus pressure no further treatment was advocated at this time. Reason For Referral Reason For Referral No Information History Of Present Illness Encounter Date Complaint History Of Prese nt Illness Follow up Very pleasant 77 year old gentleman is here for a follow up, last seen on the 29 of August with a cough. Patient has a history of rheumatoid arthritis and the recent history of laryngeal cancer status post three surgeries. Follows up with his oncologist very often, when he saw me the cough was worse and I had started him on multiple medications including breztri for bronchitis, he was taking Hui D and was asked to stop it for concerns that it could be drying his throat and was asked to take Guaifenesin liquid instead. Before coming to me he had tried levaquin argument and zithromax and the cough did not get better. He was given ryaltris nose spray which really helped. Patient currently states that the cough is completely gone, he continues to take the Famotidine and a proton pump inhibitor one in the morning one at night for his reflux the reflux is under control symptoms are not worse and he is extremely thrilled and happy with that. Allergy skin test was done in 2017 allergic to cat, tree, weed but since he has done well on this regimen and has no sinus pressure no further treatment was advocated at this time. allergy evaluation 77-[facility]-old [place] [facility] [employer] gentleman was last seen in 2016 for evaluation of Allergy, currently has rheumatoid arthritis is taking methotrexate and folic acid, approximately three years ago he was diagnosed with laryngeal cancer and has had three surgeries. There is no changes in voice. He comes in with a chronic cough, and a cough has not become worse after his laryngeal surgery. The cough has increased in frequency and severity. Initially, he would only have it with changes and smells and weather, but now it is continuous. He goes into coughing fits. The cough is not resolved, and in the morning he wakes up and for 15 to 20 minutes all he does is coughing. When he lays down at night, he starts to cough, but sleeps well throughout the night but he wakes up at least two or three times a night with a cough. Does not have a CPAP. Mouth can be dryHe brings up very small amount of clear, not very thick mucus when he coughs. Associated with sinus headache, ear is fine, good sense of smell and taste. Two days ago went to the emergency room because of coughing, chest x-ray (I do not have the result I was told it was negative) negative for Covid and fluPatient has severe acid reflux takes famotidine at night and proton pump inhibitor in the morning. He has trouble swallowing certain pills, but nothing but food. No aspiration. Acid brash has become better on the medication. Had upper endoscopy and colonoscopy which was normal.Laryngeal cancer is in remission.No pedal edema. No heart problems irregular heart rate chest tightness.Records from his primary care physician was reviewed,X-ray sinus was done on 21 August showing sinusitis. According to the note he was treated with Zithromax, Augmentin and a recent levofloxacin.Addendum received chest x-ray report. Done on the was perfectly normal. allergy evaluation Last seen in 2011,symptoms have been getting worse for 2 years, he saw Dr Hernández and had sinus surgery allergy - he did skin test and was positive maple - after surgery the surgery helped the breathing but now still had congestion, now he has watery eyes, he has runny nose, he has a mild cough , he has been clearing his throat and has post nasal drainage which leads to cough- minimal occasionally violent cough that can lead to emeis , He has some reflux - has been taking Ranitidine for years , it is better than it used to be, was on omeprazole and has no nocturnal reflux He has no chest tightness, chest can be congested with deep breaths , no wheezeexertion does not cause any reactions smell is mediocre , taste is fine, sinus headaches- he had HX OF MIGRAINE used to take Imitrex - but in the last 6- 8 months migraines are better sinus pressure but teeth is not sensitiveat home he has pets 2 dogs and a cat Functional Status Date Functional Assessmen t No Information Instructions Date Instruction Additional Infor liza Patient was taught h ow to use an Inhaler, first of all to stand, then take a puff with a spacer and then take a deep breath and hold it for 10 seconds followed by exhalation and then to repeat the second puff, patient was also told to rinse mouth after use Related to Chronic cough Giving encouragement to exercise Related to Body mass index [BMI] 27.0-27.9, adult Assessments Type Assessment Date assessment Chronic cough assessment Chronic GERD assessment Other seasonal allergic rhinitis assessment Laryngeal cancer impression in remission impression Cough has completely resolved, patient still takes medication for his reflux. That is currently stable and under control period pulmonary function test was excellent. Nasal passages are open. Patient has finished both Breztri and ryaltris - three to four days ago and the cough has not returned back. The following was advised In order to prevent the cough from coming back.-It seems more likely that post nasal drainage is the culprit for the cough, reflux has to be controlled and I would like for him to use azelastine nose spray - two sprays in each nostril definitely at bedtime if needed once again in the morning for post nasal drainage nasal congestion and sneezing.-At this time I don't think he needs an inhaler, he will contact the office should he start with symptoms of cough. Patient Care Teams Name Effective Dates (start - stop) Status Members No Information
--- OUTSIDE RECORDS SUMMARY | 2024-06-14 17:04 | XMS_ITS | Encounter Summary ---
Author Organization [facility] Address [address] [place] [address] Care Team Providers Care Compliance Nurse Name Role Phone Alberto Stanton MD Primary Care Provider [phone] Reason for Visit * Reason Comments Medication Refill Encounter Details Date Type Department Care Team (Late st Contact Info) Description 09/10/2019 Refill [facility] [address] [place] [address] Nathanael Fairchild MD [address] [place] [address] Social History Tobacco Use Types Packs/Day Years [...] on filedocumented in this encounter Care Teams Compliance Nurse Relationship Specialty Start Date End Date Alberto Stanton MD [address] [place] [address] PCP - General Internal Medicine 06/01/14 documented as of this encounter
--- OUTSIDE RECORDS SUMMARY | 2024-06-14 17:04 | XMS_ITS | Continuity of Care Document ---
Author Organization [facility] Address [address] [facility] [address] [place] [address] Phone Care Team Providers Care Welt Maker Name Role Phone Albina Orellana OD Unavailable Unavailable Allergies, Adverse Reactions, Alerts Substance Reaction Status Criticality No Known Allergies Active No Inform ation Medications Medication Instructions Dosage Effective Dates (start - stop) Status Comments ketoconazole 2 % shampoo apply by topica l route every day to the affected area(s), lather, leave in place for 5 minutes, and then rinse off with water 0.00 - Active finasteride 5 mg tablet take 1 tablet by oral route every day 5 MG - Active famotidine 40 mg tablet take 1 tablet by oral route every day at bedtime 40 MG - Active omeprazole 40 mg capsule,delayed release take 1 capsule by oral route every day before a meal 40 MG - Active multivitamin tablet take 1 tablet by oral route every day with food - Active biotin 10,000 mcg capsule take one pill qd - No Longer Active hydroxychloroquine 200 mg tablet take 1 tablet by oral route 2 times every day 200 MG - No Longer Active Nexium 20 mg capsule,delayed release take 1 capsule by oral route every day at least 1 hour before a meal swallowing whole. Do not crush or chew granules. 20 MG - No Longer Active ranitidine 300 mg tablet take 1 tablet b y oral route 2 times every day - No Longer Active tamsulosin 0.4 mg capsule take 1 capsule by oral route every day 1/2 hour following the same meal each day 0.4 MG - No Longer Active Procedures Procedure Date SCODI, Retina No Charge Refraction Visual Field Examination(s) No Charge Optomap Fundus Photos 024 Eye Exam & Treatment Visual Field Examination(s) SCODI, Retina No Charge Optomap Fundus Photos 021 Eye Exam & Treatment SCODI, Retina Refraction Visual Field Examination(s) Eye Exam & Treatment Refraction SCODI, Retina Eye Exam, New Patient Advance Directives Directive Yes / No Effective Date File Name Other Directive No N/A N/A WARNING:The information contained in this section is historical and is provided for information only and does not constitute a legal document or any assurance that the information is still accurate. Please verify the information with the alvarez of the legal document before using it for clinical purposes. Encounters Encounter Description Practice Location Reason(s) For Visit Diagnoses Date Provider Providers Copied on Encounter Formerly [facility], [address], [place], [place], [id number], [place] tel:[phone] SEC Alexei [place] Professional Complete Exam (chief complaint) High risk medication useNexdtve age-related mclr degn, right eye, early dry stageDry eyes, bilateralCombi mazin forms of age-related cataract, bilateralChori oretinal scar of right eyeScar of cornea of right eyeBilateral ocular hypertension Oct-2 4 Reyna OD Albina. [id number] [place] [address], [address], [place], [place], [address], [place]. tel:[phone] Alissa Fuentes MD.Referri Provider: Judit Walker, [address] [facility], [place], [address]. tel:[phone] [facility], [address], [place], [place], [id number], [place] tel:[phone] SEC [place] Professional Complete Exam (chief complaint) High risk medication useScar of cornea of right eyeNexdtve age-related mclr degn, right eye, early dry stageDry eyes, bilateralCombi mazin forms of age-related cataract, bilateral Dec- 0 1 Reyna Montemayor. [address], [address], [place], [place], [address], [place]. tel:[phone] Specialist : Alissa Fuentes MD, [address] [facility] [address], [place], [address]. tel:[phone] er Provider: Alissa Fuentes MD, [address] [facility] [address] [place] [address], [address]. tel:[phone] erring Provider: Albina Orellana OD L, [address], [place], [address] . tel:[phone] [facility], [facility] [address], [place], [place], [address], [place] tel:[phone] SEC [place] Professional Complete Exam (chief complaint) Nexdtve age-related mclr degn, right eye, early dry stageCombined forms of age-related cataract, right eyeAge-related nuclear cataract, left eyeScar of cornea of right eyeHigh risk medication useSkin tagChorioretin al atrophy of right eye 0 Dallas Weiss. [address] [facility], [facility] [place], [address], [place]. tel:[phone] Other Provider: Alissa Fuentes MD, [address] [facility] [address], [place], [address]. tel:[phone] erring Provider: Abhishek Bonilla, [address] [facility] [address], [place], [address] . tel:[phone] Formerly [facility], [address] [place], [place] [address], [place], [place], [address], [place] tel:[phone] SEC Abran Humberto Landin Information 0 Dallas Weiss. [address] [facility], [facility], [place], [place], [address], [place]. tel:[phone] [facility], [address], [place], [place], [address], [place] tel:[phone] SEC [facility] Samuel Complete Exam (chief complaint) Combined forms of age-related cataract, right eyeCombined forms of age-related cataract, left eyeDry eyes, bilateralScar of cornea of right eyeChorioretin al scar of right eyeRPE mottling of macula 8 Aaron Spain. [address] [place], [address], [place]. tel:[phone] Referring Provider: Judit Wlaker, [address] [place], [address]. tel:[phone] Family History Family Member Type Diagnosis Age At Onset No Information Payers Payer name Insurance type Covered libertarian ID Authorvikram treviño(s) [facility] Mdcr Adv CI [id number] Social History Type Description Quantity Date Captured Comments Alcohol Use Details Caffeine Use Details Tobacco Use Status Ex-cigarette smoker 024 Smoking Status Former smoker Smoking Tobacco Use Details Cigarette: Age Started: 11, Age Stopped: 48, Years Used 35 Cigarette: 1 Packs per day, Pack Year: 37 Sex Male Chief Complaint And Reason For Visit From encounter dated '03/25/2024 09:45'. Complete Exam (chief complaint). Description: The 78 year old patient presents for evaluation of Complete Exam in the right eye and left eye. Pt states that starting about a month ago they noticed that OU started watering and burning, Pt states its not consistent and comes and goes. Pt states it hasn't seem to have been getting worse. Pt does not taking any gtts, and pt quit taking AREDS a couple weeks ago. Pt states they stopped taking Plaquenil about a year ago. Reason For Referral Reason For Referral No Information Plan Of Treatment Date Type Action Status Goal Tobacco cessation counseling completed Patient Education Learning About Ocular H ypertension completed Patient Education Cataracts: Care Camelia hyman completed Patient Education Cataracts: Care Instruc titiffani completed History Of Present Illness Encounter Date Complaint History Of Prese nt Illness Complete Exam The 78 year old patient presents for evaluation of Complete Exam in the right eye and left eye. Pt states that starting about a month ago they noticed that OU started watering and burning, Pt states its not consistent and comes and goes. Pt states it hasn't seem to have been getting worse. Pt does not taking any gtts, and pt quit taking AREDS a couple weeks ago. Pt states they stopped taking Plaquenil about a year ago. Complete Exam The 75 year old male presents for a complete Plaquenil exam ou. Patient has RA and sees Dr. Fuentes. Patient states after reading for awhile his eyes start to feel funny. Monitoring cataracts ou. Patient reads a lot. Complete Exam The 74 year old male presents for evaluation of Complete Exam in the right eye and left eye. Hx Cataract OU, Plaquenil use. Pt reports using Plaquenil for about 4 months, followed by Dr. Fuentes for RA. Pt reports glare while driving at night. Pt reports trouble when he reads for too long at near. Pt reports tearing after reading for long periods of time. Burning OU x 1 year. Pt does not take gtts. Pt reports falling on the ice this morning and going to the ER because he hit his head. Pt reports the ER telling him the he may have a mild concussion. Pt denies increased floaters, flashes, and dark curtains OU. Complete Exam The 72 year old male presents for Complete Exam in the right eye and left eye. Flomax user. Pt not currently using anyy gtts. Pt states vision is really bad, states after 15-20 minutes of reading words are so blurry that he has to stop reading, blurried vision last for quite a while, pt stops reading to try to clear vision but it does not help. Pt states this has been happening for the past 6-8 months. Pt also has the following complaints, bothered by glare on glare on bright days and oncoming headlights light at night, reading small print with glaasses on, doing close work, playing card/board games. Pt denies any pain or discomfort at this time. Functional Status Date Functional Assessmen t No Information Instructions Date Instruction Additional Chau de jesus Impression/Plan Impression/Plan Impression/Plan Impression/Plan - Mi ld, will continue to monitor. OCT mac without any signs of intraretinal or subretinal fluid. 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 Related to Scar of cornea of right eye Impression/Plan - Re commend artificial tears QID OU, sample given. Instructed pt to blink 20 times every 20 minutes while reading. Related to Dry eyes, bilateral Impression/Plan - Di scussed exam findings with patient. Cataracts not visually significant at this time, will monitor. Pt aware new glasses will improve vision, rx for glasses given. IOP is stable OU. RTC 1 year for complete exam and cataract evaluation or sooner with problems. Follow up - Return i n 1 year with Judit Walker M.D. for Complete Exam. 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
--- OUTSIDE RECORDS SUMMARY | 2024-06-14 17:04 | XMS_ITS | Encounter Summary ---
Author Organization [facility] Address [address] [place] [address] Care Team Providers Care Pipe Stem Sawyer Name Role Phone Alberto Stanton MD Primary Care Provider [phone] Reason for Visit * Reason Comments Medication Refill Encounter Details Date Type Department Care Team (Late st Contact Info) Description 12/31/[address] [facility] [address] [place] [id number] Nathanael Fairchild MD [address] [facility] [address] [place] [address] Social History Tobacco Use Types Packs/Day Years [...] filedocumented in this encounter Care Teams Pipe Stem Sawyer Relationship Specialty Start Date End Date Alberto Stanton MD [address] [place] [address] PCP - General Internal Medicine 06/01/14 documented as of this encounter
--- OUTSIDE RECORDS SUMMARY | 2024-06-14 17:04 | XMS_ITS | Clinical Summary ---
Author Organization [facility] Address [address] [facility] [address] [address] [place] [address] Phone Care Team Providers Care Film Vault Supervisor Name Role Phone Alberto Stanton MD Primary Care Provider [phone] Medications Medication Sig Dispensed Refills Start Date End Date Status Doxepin 4% Compound Cream Apply to affected area every 4 hours as needed for itching. 60 Gram 07/15/2019 Active doxepin HCl 4% cream compound Apply a small amount topically to the affected area every 4 hours as needed. 60 Gram 5 11/21/2021 Active Social History Tobacco Use Types Packs/Day Years Used Date Smoking Tobacco: Never Assessed Sex and Gender Information Value Date Recorded Sex Assigned at Not on file Gender Identity Not on file Sexual Orientation Not on file Job Start Date Occupation Industry Not on file Not on file Not on file Plan of Treatment Health Maintenance Due Date Last Done Comments ZOSTER VACCINE (1 of 2) 1964 PNEUMOCOCCAL VACCINE 65+ YEA RS (2 of 2 - PCV) 02/06/2012 02/05/2011 RSV VACCINE (60+ or ) (1 - 1-dose 75+ series) 2018 INFLUENZA VACCINE (#1) 2024 6, 06/07/2014, 06/14/2013, Additional history exists DTAP/TDAP/TD VACCINES (2 - T d or Tdap) 06/30/2029 06/30/2019 Care Teams Film Vault Supervisor Relationship Specialty Start Date End Date Alberto Stanton MD [address] [place] [id number] PCP - General Internal Medicine 06/01/14
--- OUTSIDE RECORDS SUMMARY | 2024-06-14 17:04 | XMS_ITS | Encounter Summary ---
Author Organization [facility] Address [address] [place] [address] Care Team Providers Care Department Operations Manager Name Role Phone Alberto Stanton MD Primary Care Provider [phone] Encounter Details Date Type Department Care Team (Latest Contact Info) Description 06/01/2014 6:20 PM COMMUNICATIONS ELECTRICIAN SUPERVISOR - 06/01/2014 11:59 PM COMMUNICATIONS ELECTRICIAN SUPERVISOR Hospital Encounter [facility] [place] [address] [place] [phone] Viraj Hernández [place] [address] [place] [address] [address] [place] [address] Discharge Disposition: Home or Self Care Social [...] Name Priority Date/Time Associated Diagnosis Comments PATHOLOGY Routine 06/01/2014 10:41 AM COMMUNICATIONS ELECTRICIAN SUPERVISOR documented in this encounter Results * PATHOLOGY (06/01/2014 10:41 AM COMMUNICATIONS ELECTRICIAN SUPERVISOR) CASE REPORT Surgical Pathology Report ? Case: [id number] ? -------- Authorizing Provider: ??Viraj Hernández MD ? Ordering Provider: ?? Viraj Hernández MD ? Ordering Location: ? [facility] ?? Collected: ? 06/01/2014 10:41 AM ? [facility] ? Pathologist: ? Ezequiel Shelby MD ?Received: ?06/02/2014 10:09 AM ? Specimens: ?? A) - Sinus Contents, Right, right nasal contents ? B) - Sinus Contents, Left, left nasal contents ? 06/07/2014 1:12 PM [facility] FINAL DIAGNOSIS Paranasal sinus, right, curretage - ??Mild chronic inflammation Paranasal sinus, left, curretage - ??Moderate chronic inflammation 06/07/2014 1:12 PM [facility] S DESCRIPTION Received are two containers both labeled Samuel Sanchez. A: The first container is additionally labeled right nasal contents. The specimen consists of multiple irregularly shaped pieces of yellow-massey tissue and bone with an aggregate volume of <0.25 cc. All submitted after decalcification . B: The second container is labeled left nasal contents. The specimen consists of multiple irregularly shaped pieces of yellow-massey tissue and bone with an aggregate volume of <0.25 cc. All submitted in B after decalcification . MARY/ISACC/holden 06-02-14 06/07/2014 1:12 PM [facility] MICROSCOPIC DESCRIPTION A: ??Sections of the right nasal curettage shows mucosa, submucosa and bone. ??The bone is unremarkable. ??The mucosa is respiratory in type. ??The submucosa shows a minimal inflammatory cell infiltrate. ??There are no eosinophils, Chargot-Leyden crystals, allergic mucin or fungi with a GMS. ?? B: ??The curettage from the left nasal contents shows mucosa, submucosa and bone. The bone is unremarkable. ??The mucosa in respiratory in type. ??The submucosa shows normal glands and a moderate lymphocytic plasmacytic inflammatory cell infiltrate. ??The eosinophils are not a feature. ??There are no Chargot-Leyden crystals, allergic mucin or fungi with a GMS. ?? JLR/las 06/07/14 06/07/2014 1:12 PM [facility] Tissue (Sinus Contents, Right) 06/01/2014 10:41 AM [facility] 06/02/2014 10:09 AM [facility] Tissue specimen (specimen) (Sinus Contents, Left) 06/01/2014 10:41 AM COMMUNICATIONS ELECTRICIAN SUPERVISOR 06/02/2014 10:09 AM COMMUNICATIONS ELECTRICIAN SUPERVISOR Viraj Hernández MD PATHOLOGY/CYTOLOGY O [facility] # [id number] [facility] [address] [place] [address] documented in this encounter Visit Diagnoses Not on filedocumented in this encounter Care Teams Department Operations Manager Relationship Specialty Start Date End Date Alberto Stanton MD [address] [place] [address] PCP - General Internal Medicine 06/01/14 documented as of this encounter
--- OUTSIDE RECORDS SUMMARY | 2024-06-14 23:20 | XMS_ITS | Encounter Summary ---
Author Organization [facility] Address [address] [place] [address] Care Team Providers Care Accounts Payable Lead Name Role Phone Unavailable Primary Care Provider Unavailabl e Reason for Visit * Reason Comments Follow-up Reflux Encounter Details Date Type Department Care Team (Late st Contact Info) Description 05/04/2020 9:30 AM LINUX ENGINEER Video Visit [facility] [employer] [facility] [address] [facility] [place], [address] [place] [address] Zelda Batista, THAO-INSERTER OPERATOR [address] [facility] [place] [address] [place] [address] Pena's esophagus without dysplasia ; [...] COVID-19? No / Unsure 04/04/2020 8:21 AM LINUX ENGINEER documented as of this encounter Progress Notes * Zelda Batista APRN-ALICIA - 05/04/2020 9:30 AM CST Telemedicine Note Today's visit was conducted virtually due to COVID-19 countermeasures. The patient has given verbalconsent to have today's visit conducted by this same means with treatment provided remotely. The patient verbally consents to the billing and collection practices of [facility]. 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
--- OUTSIDE RECORDS SUMMARY | 2024-06-14 23:20 | XMS_ITS | Encounter Summary ---
Author Organization [facility] Address [address] [place] [address] Care Team Providers Care Food Production Manager Name Role Phone Unavailable Primary Care Provider Unavailabl e Reason for Visit * Reason Comments MIGRAINE Encounter Details Date Type Department Care Team (Late st Contact Info) Description 05/17/2011 2:20 PM RECREATION PROFESSOR Office Visit [facility] [address] [place], [place] [id number] [place] [address] [facility] [address] [place] [address] Migraine (Primary Dx) Social History [...] Comments Blood Pressure 116/68 05/17/2011 3:10 PM RECREATION PROFESSOR Pulse 72 05/17/2011 3:10 PM RECREATION PROFESSOR Temperature - - Respiratory Rate 12 05/17/2011 3:10 PM RECREATION PROFESSOR Oxygen Saturation - - Inhaled Oxygen Concentration [...] may take with NSAIDs RTO 1 year EATION PROFESSOR documented in this encounter Plan of Treatment Not on file documented as of this encounter Visit Diagnoses Diagnosis Migraine- Primary Migraine, unspecified, without mention of intractable migraine without mention of status migrainosus documented in this encounter
--- OUTSIDE RECORDS SUMMARY | 2024-06-14 23:20 | XMS_ITS | Encounter Summary ---
Author Organization [facility] Address [address] [facility] [place] [address] Care Team Providers Care Construction Rigger Name Role Phone Unavailable Primary Care Provider Unavailabl e Reason for Visit * Auth/Cert Specialty Diagnoses / Procedures Referred By Alcira t Referred To Contact Procedures ESOPHAGOGASTRODUODENOSCOPY (EGD) DIAGNOSTIC COLONOSCOPY SCREEN Referral ID Status Reason Start Date Expiration Date Visits Re quested Visits Authorized [id number] 1 1 Encounter Details Date Type Department Care Team (Latest Contact Info) Description 03/14/2020 10:00 AM CDT - 03/14/2020 10:45 AM CDT Surgery [facility] - Endoscopy Services [address] [place] [address] [place] [address] [facility] [address] [place] [address] ESOPHAGOGASTRODUODENOSCOPY (EGD) DIAGNOSTIC Surgery Details Date/Time Status Location OR Service Patient Class Case Class Case Type Trauma Case? 03/14/2020 10:00 AM Posted [facility] 01 Gastroenterology Surgery Day Care [...] COLONOSCOPY SCREEN 03/14/2020 10 :00 AM CDT CO ED EGD FLEX TRANSORAL DX 03/14/2020 10:00 [...] Final Negative Negative 03/15/2020 4:43 PM CDT [facility] Comment:This is an appended report. These results have been appended to a previously preliminary verified report. Microbiology GASTRIC ANTRAL BIOPSY SPECIMEN / Unknown 03/14/2020 10:43 AM CDT 03/14/2020 4:07 PM CDT Rojas Zuniga MD LAB - MICROBIOLOGY O RDERABLES [facility] [address] [place] [address] * PATHOLOGY TISSUE EXAM (STL) (03/14/2020 10:43 AM CDT) Case Report Surgical Pathology Report ? Case: [id number] ? Authorizing Provider: ??Rojas Zuniga MD ?Collected: [...] shows hyperplastic polyp. 03/16/2020 10:00 AM CDT [facility] Disclaimer All histochemical and/or immunohistochemical results are interpreted with controls that demonstrate appropriate staining reactions before reporting results. Note on use of immunocytochemistry reagents: This test was developed and its performance characteristic determined by [facility], Department of Laboratory Medicine. It has not [...] interpreted with caution. 03/16/2020 10:00 AM CDT [facility] Embedded Images 03/16/2020 10:00 AM CDT [facility] Pathology/Cytology GASTRIC BIOPSY SPECIMEN / Unknown [...] Zuniga MD LAB - PATHOLOGY/CYTO LOGY ORDERABLES [facility] [address] [place] [address] * ENDOSCOPY, COLON, SCREENING (03/14/2020 [...] Procedure Code(s): ? --- Professional --- ? 56006, Colonoscopy, flexible; with removal of tumor(s), polyp(s), or ? other lesion(s) by snare technique ? --- Technical --- ? 28387, Colonoscopy, flexible; with removal of tumor(s), polyp(s), [...] R10.84, Generalized abdominal pain CPT copyright 2017 [employer]. All rights reserved. The codes documented in this report are preliminary and upon logistics planner review may be revised to meet current compliance requirements. Dr. Rojas Zuniga M.D. Rojas Zuniga MD 03/14/2020 12:47:22 PM Number of Addenda: 0 Note Initiated On: 03/14/2020 9:53 AM [facility] 03/14/2020 9:53 AM CDT Zelda Batista APRN-PROGRAMMER ANALYST GI PROCEDURE OR DERABLES [facility] SUSIE Reyes [id number] * EGD (03/14/2020 9:26 AM CDT) Report [...] Procedure Code(s): ? --- Professional --- ? 19456, Esophagogastroduode noscopy, flexible, transoral; with biopsy, ? single or multiple ? --- Technical --- ? 83526, Esophagogastroduode noscopy, flexible, transoral; with biopsy, ? [...] R10.84, Generalized abdominal pain CPT copyright 2017 [employer]. All rights reserved. The codes documented in this report are preliminary and upon logistics planner review may be revised to meet current compliance requirements. Dr. Rojas Zuniga M.D. Rojas Zuniga MD 03/14/2020 12:32:00 PM Number of Addenda: 0 Note Initiated On: 03/14/2020 9:26 AM [facility] 03/14/2020 9:26 AM CDT Rojas Zuniga MD GI PROCEDURE ORDERAB LES [facility] [place] [address] documented in this encounter Visit Diagnoses Not [...]
--- OUTSIDE RECORDS SUMMARY | 2024-06-14 23:20 | XMS_ITS | Encounter Summary ---
Author Organization [facility] Address [address] [place] [address] Care Team Providers Care Privacy Manager Name Role Phone Unavailable Primary Care Provider Unavailabl e Reason for Referral * Radiology Services (Routine) - Closed Specialty Diagnoses / Procedures Referred By Contac t Referred To Contact MRI Diagnoses Chronic midline low back pain without sciatica Procedures MRI LUMBAR SPINE WO CONTRAST Adilson Cutler PA-C Dept of Neurological Surgery [address] [place] [address] [place] [address] Referral ID Status Reason Start Date Expiration Date Visits Re quested Visits Authorized [id number] Closed 03/08/2020 03/08/2021 1 1 Reason for Visit * Reason Comments Pain Back Encounter Details Date Type Department Care Team (Late st Contact Info) Description 03/08/2020 1:00 PM CDT Office Visit [facility] Neurosciences [address] [facility] [address] [place] [phone] Adilson Cutler PA-C Dept of Neurological Surgery [address] [place] [address] [place] [address] Chronic midline low back pain without [...] Cutler PA-C - 03/08/2020 1:40 PM CDT [facility] New Patient Encounter Patient's Name: [...] care of this patient. Adilson Cutler PA-C [facility] [place] documented in this encounter Plan of Treatment [...]
--- OUTSIDE RECORDS SUMMARY | 2024-06-14 23:20 | XMS_ITS | Encounter Summary ---
Author Organization [facility] Address [address] [facility] [address] Care Team Providers Care Magazine Hand Name Role Phone Viraj Romeo Primary Care Provider [phone] Reason for Visit * Reason Comments Refill Request Encounter Details Date Type Department Care Team ([facility] Contact Info) Description 03/11/2022 Refill [facility] Medical Group - [address] [address] Zelda Batista, CLINICAL SPECIAL[facility] [id number] [place] [address] Refill Request Social History Tobacco Use [...] on filedocumented in this encounter Care Teams Magazine Hand Relationship Specialty Start Date End Date Viraj Romeo PA [address] [place] [address] PCP - General 12/28/20 documented as of this encounter
--- OUTSIDE RECORDS SUMMARY | 2024-06-14 23:20 | XMS_ITS | Clinical Summary ---
Author Organization [facility] Address [address] [facility] [place] [address] Care Team Providers Care Motel Food Service Supervisor Name Role Phone Viraj Romeo Primary Care Provider [phone] Source Comments [facility],non-owned Affiliates and Associated Physician Practices is amultiple site organization consisting of ambulatory clinics and hospital sitesin [place], [place], [place] and [place]. This disclosure is being madepursuant to the Care Everywhere program and may not contain all information available regarding this patient. Last updated 18.[facility] Allergies Active Allergy Reactions Criticality Noted Date [...] age to complete this topic Care Teams Motel Food Service Supervisor Relationship Specialty Start Date End Date Viraj Romeo PA [address] [place] [address] PCP - General 12/28/20
--- OUTSIDE RECORDS SUMMARY | 2024-06-14 23:20 | XMS_ITS | Encounter Summary ---
Author Organization [facility] Address [address] [facility] [place] [address] Care Team Providers Care Wire Border Assembler Name Role Phone Unavailable Primary Care Provider Unavailabl e Encounter Details Date Type Department Care Team (Late st Contact Info) Description 06/26/2011 Orders Only [facility] Neurosciences [address] [place] [address] [place] [address] [place] [address] Social History Tobacco Use Types [...]
--- OUTSIDE RECORDS SUMMARY | 2024-06-14 23:20 | XMS_ITS | Encounter Summary ---
Author Organization [facility] Address [address] [facility] [place] [address] Care Team Providers Care Biodiesel Operations Manager Name Role Phone Viraj Romeo Primary Care Provider [phone] Reason for Visit * Reason Onset Date Comments Medication Management 12/19/2021 Encounter Details Date Type Department Care Team (Late st Contact Info) Description 12/19/2021 Telephone [facility] Medical Group - [address] [address] [place] [address] [address] [address] Medication Management Social History Tobacco [...] on filedocumented in this encounter Care Teams Biodiesel Operations Manager Relationship Specialty Start Date End Date Viraj Romeo PA [address] [place] [address] PCP - General 12/28/20 documented as of this encounter
--- OUTSIDE RECORDS SUMMARY | 2024-06-14 23:20 | XMS_ITS | Encounter Summary ---
Author Organization [facility] Address [address] [place] [address] Care Team Providers Care Secondary Teacher Name Role Phone Viraj Romeo Primary Care Provider [phone] Reason for Visit * Reason Onset Date Comments Update 02/14/2022 Encounter Details Date Type Department Care Team (Late st Contact Info) Description 02/14/2022 Telephone [facility] Medical Group - [address] [address] [address] [place] [address] [address] [address] Update Social History Tobacco Use [...] on filedocumented in this encounter Care Teams Secondary Teacher Relationship Specialty Start Date End Date Viraj Romeo PA [address] [place] [address] PCP - General 12/28/20 documented as of this encounter
--- OUTSIDE RECORDS SUMMARY | 2024-06-14 23:20 | XMS_ITS | Encounter Summary ---
Author Organization [facility] Address [address] [facility] [place] [address] Care Team Providers Care Mill Hand Plate Mill Name Role Phone Unavailable Primary Care Provider Unavailabl e Reason for Referral * Procedure (Routine) - Closed Specialty Diagnoses / Procedures Referred By Alcira forrest Referred To Contact Gastroenterology Diagnoses Abnormal weight loss Change in bowel function Procedures ENDOSCOPY, COLON, SCREENING Zelda Batista, THAO-ALICIA [address] [facility] [address] [place] [address] Referral ID Status Reason Start Date Expiration Date Visits Re quested Visits Authorized [id number] Closed 03/11/2020 03/11/2021 1 1 Reason for Visit * Auth/Cert Specialty Diagnoses / Procedures Referred By Alcira forrest Referred To Contact Procedures ESOPHAGOGASTRODUODENOSCOPY (EGD) DIAGNOSTIC COLONOSCOPY SCREEN Referral ID Status Reason Start Date Expiration Date Visits Re quested Visits Authorized [id number] 1 1 Encounter Details Date Type Department Care Team (Latest Contact Info) Description 03/14/2020 8:53 AM CDT - 03/14/2020 1:35 PM CDT Hospital Encounter [facility] - Endoscopy Services [address] [place] [address] [place] [address] [facility] [address] [place] [address] Surgery [...] COLONOSCOPY SCREEN 03/14/2020 10 :00 AM CDT [facility] ED EGD FLEX TRANSORAL DX 03/14/2020 10:00 AM CDT ENDOSCOPY, COLON, SCREENING Routine 03/14/2020 9:53 AM CDT Abnormal weight loss Change in bowel function EGD Routine 03/14/2020 9:26 AM CDT documented in this encounter Results * HELICOBACTER PYLORI UREASE (STL) (03/14/2020 10:43 AM CDT) Helicobacter pylori Urease Initial Negative Negative 03/15/2020 4:43 PM CDT [facility] Helicobacter pylori Urease Final Negative Negative 03/15/2020 4:43 PM CDT [facility] Comment:This is an appended report. These results have been appended to a previously preliminary verified report. Microbiology GASTRIC ANTRAL BIOPSY SPECIMEN / Unknown 03/14/2020 10:43 AM CDT 03/14/2020 4:07 PM CDT Rojas Zuniga MD LAB - MICROBIOLOGY O RDERABLES [facility] [address] [facility] S[place]IE HAQUE [address] * PATHOLOGY TISSUE EXAM (STL) (03/14/2020 10:43 AM CDT) Case Report Surgical Pathology Report ? Case: [id number] ? Authorizing Provider: ??Rojas Zuniga MD ?Collected: [...] shows hyperplastic polyp. 03/16/2020 10:00 AM T [facility] Disclaimer All histochemical and/or immunohistochemical results are interpreted with controls that demonstrate appropriate staining reactions before reporting results. Note on use of immunocytochemistry reagents: This test was developed and its performance characteristic determined by [facility], Department of Laboratory Medicine. It has [...] interpreted with caution. 03/16/2020 10:00 AM T [facility] Embedded Images 03/16/2020 10:00 AM T [facility] Pathology/Cytology GASTRIC BIOPSY SPECIMEN / [...] LAB - PATHOLOGY/CYTO LOGY ORDERABLES [facility] [address] [facility] [place] [address] * ENDOSCOPY, COLON, SCREENING (03/14/2020 9:53 AM [...] Procedure Code(s): ? --- Professional --- ? 99596, Colonoscopy, flexible; with removal of tumor(s), polyp(s), or ? other lesion(s) by snare technique ? --- Technical --- ? 04654, Colonoscopy, flexible; with removal of tumor(s), polyp(s), [...] R10.84, Generalized abdominal pain CPT copyright 2017 [employer]. All rights reserved. The codes documented in this report are preliminary and upon ict account manager review may be revised to meet current compliance requirements. Dr. Rojas Zuniga M.D. Rojas Zuniga MD 03/14/2020 12:47:22 PM Number of Addenda: 0 Note Initiated On: 03/14/2020 9:53 AM [facility] 03/14/2020 9:53 AM CDT Zelda Batista ASSEMBLER WATCH TRAIN-POTATO CHIP PROCESSING SUPERVISOR GI PROCEDURE OR DERABLES [facility] SUSIE Haque [address] * EGD (03/14/2020 9:26 AM CDT) Report [...] Procedure Code(s): ? --- Professional --- ? 14550, Esophagogastroduode noscopy, flexible, transoral; with biopsy, ? single or multiple ? --- Technical --- ? 92605, Esophagogastroduode noscopy, flexible, transoral; with biopsy, ? [...] R10.84, Generalized abdominal pain CPT copyright 2017 [employer]. All rights reserved. The codes documented in this report are preliminary and upon ict account manager review may be revised to meet current compliance requirements. Dr. Rojas Zuniga M.D. Rojas Zuniga MD 03/14/2020 12:32:00 PM Number of Addenda: 0 Note Initiated On: 03/14/2020 9:26 AM [facility] 03/14/2020 9:26 AM CDT Rojas Zuniga MD GI PROCEDURE ORDERAB LES [facility] [place] [address] documented in this encounter Visit Diagnoses Diagnosis [...]
--- OUTSIDE RECORDS SUMMARY | 2024-06-14 23:20 | XMS_ITS ---
Care Plan - [facility] Created on: June 14, 2024 PASQUALE HUFFMAN : 1945 Sex: Male Author Organization [facility] Address [address] [place] [phone] Phone Care Team Providers Care Air Analyst Name Role Phone GRACIE ESQUEDA DO [phone]
--- OUTSIDE RECORDS SUMMARY | 2024-06-14 23:20 | XMS_ITS | Encounter Summary ---
Author Organization [facility] Address [address] [place] [address] Care Team Providers Care Fish Peddler Name Role Phone Unavailable Primary Care Provider Unavailabl e Reason for Referral * Radiology Services (Routine) - Closed Specialty Diagnoses / Procedures Referred By Contac t Referred To Contact CT Scan Diagnoses Abdominal pain, unspecified abdominal location Procedures CT ABDOMEN PELVIS W CONTRAST [place]jas [place] [id number] [place] [address] [address] [place] [address] Referral ID Status Reason Start Date Expiration Date Visits Re quested Visits Authorized [id number] Closed 03/16/2020 03/16/2021 1 1 Encounter Details Date Type Department Care Team (Late st Contact Info) Description 03/16/2020 Orders Only [facility] Medical [facility] [address] [facility] [address] [place] [address] [place] [address] [facility] [address] [place] [address] Abdominal pain, unspecified abdominal location [...]
--- OUTSIDE RECORDS SUMMARY | 2024-06-14 23:20 | XMS_ITS | Encounter Summary ---
Author Organization [facility] Address [address] [place] [address] Care Team Providers Care Director Ship Name Role Phone Viraj Romeo Primary Care Provider [phone] Reason for Referral * Procedure (Routine) - Closed Specialty Diagnoses / Procedures Referred By Alcira forrest Referred To Contact Gastroenterology Diagnoses Gastroesophageal reflux disease without esophagitis [place] [address] [address] [place] [phone] Referral ID Status Reason Start Date Expiration Date Visits Re quested Visits Authorized [id number] Closed 10/20/2021 10/20/2022 1 1 * Procedure (Routine) - Closed Specialty Diagnoses / Procedures Referred By Alcira forrest Referred To Contact Gastroenterology Diagnoses Special screening for malignant neoplasms, colon Procedures ENDOSCOPY, COLON, [place] [address] [address] [place] [phone] Referral ID Status Reason Start Date Expiration Date Visits Re quested Visits Authorized [id number] Closed 10/20/2021 10/20/2022 1 1 Reason for Visit * Auth/Cert Specialty Diagnoses / Procedures Referred By Alcira forrest Referred To Contact Procedures COLONOSCOPY SCREEN ESOPHAGOGASTRODUODENOSCOPY (EGD) DIAGNOSTIC Referral ID Status Reason Start Date Expiration Date Visits Re quested Visits Authorized [id number] 1 1 Encounter Details Date Type Department Care Team (Latest Contact Info) Description 11/08/2021 8:25 AM CDT - 11/08/2021 10:54 AM CDT Hospital Encounter [facility] - Endoscopy Services [address] [place] [address] [place] [address] [facility] [address] [place] [address] Surgery General Discharge Disposition: Home or [...] STAT 11/08/2021 9:48 AM CDT Diagnosis deferred [facility] ED EGD FLEX TRANSORAL DX 11/08/2021 9:45 AM CDT COLONOSCOPY SCREEN 11/08/2021 9: 45 AM CDT EGD Routine 11/08/2021 8:53 AM CDT Gastroesophageal reflux disease without esophagitis ENDOSCOPY, COLON, SCREENING Routine 11/08/2021 8:52 AM CDT Special screening for malignant neoplasms, colon documented in this encounter Results * PATHOLOGY TISSUE EXAM (STL) (11/08/2021 9:49 AM CDT) Case Report Surgical Pathology Report ? Case: [id number] ? Authorizing Provider: ??Loyd Thao MD ? Collected: ? 11/08/2021 09:49 AM ? Ordering Location: ? [facility] ?Received: ?11/08/2021 10:33 AM [...] sessile serrated adenoma. 11/10/2021 12:14 PM T [facility] Disclaimer All histochemical and/or immunohistochemical results are interpreted with controls that demonstrate appropriate staining reactions before reporting results. Note on use of immunocytochemistry reagents: This test was developed and its performance characteristic determined by [facility], Department of Laboratory Medicine. It has not [...] interpreted with caution. 11/10/2021 12:14 PM T [facility] Embedded Images 11/10/2021 12:14 PM [facility] Pathology/Cytology ESOPHAGEAL BIOPSY SPECIMEN / Unknown 11/08/2021 9:49 AM CDT 11/08/2021 10:33 AM CDT Miscellaneous samples (specimen) POLYP OF COLON / Unknown 11/08/2021 10:07 AM CDT 11/08/2021 10:33 AM CDT Loyd Thao MD LAB - PATHOLOGY/CYT OLOGY ORDERABLES Performing Organization Address [facility] de Phone Number [facility] [address] [place] [id number] * HELICOBACTER PYLORI UREASE (STL) (11/08/2021 9:48 AM CDT) Helicobacter pylori Urease Initial Negative Negative 11/09/2021 10:17 AM CDT [facility] Helicobacter pylori Urease Final Negative Negative 11/09/2021 10:17 AM CDT [facility] Comment:This is an appended report. These results have been appended to a previously preliminary verified report. Microbiology GASTRIC ANTRAL BIOPSY SPECIMEN / Unknown 11/08/2021 9:48 AM CDT 11/08/2021 1:48 PM CDT Loyd Thao MD LAB - MICROBIOLOGY ORDERABLES Performing Organization Address [facility] de Phone Number [facility] [id number] [place] [address] * EGD (11/08/2021 8:53 AM CDT) Report [...] the physician, the nurse and the ? merchandise flow team member in the procedure room. Mental Status ? [...] Procedure Code(s): ? --- Professional --- ? 34602, Esophagogastroduod enoscopy, flexible, transoral; with biopsy, ? single or multiple ? --- Technical --- ? 80293, Esophagogastroduod enoscopy, flexible, transoral; with biopsy, ? single or multiple Diagnosis Code(s): ? --- Professional --- ? 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 K29.70, Gastritis, unspecified, without bleeding ? K21.9, Gastro-esophageal reflux disease without esophagitis ? --- Technical --- ? 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 K29.70, Gastritis, unspecified, without bleeding ? K21.9, Gastro-esophageal reflux disease without esophagitis CPT copyright 2019 [employer]. All rights reserved. The codes documented in this report are preliminary and upon pocket stitcher review may be revised to meet current compliance requirements. Dr. Loyd Thao MD Loyd Thao MD 11/08/2021 9:50:09 AM This report has been signed electronically. Number of Addenda: 0 Note Initiated On: 11/08/2021 8:53 AM [facility] 11/08/2021 8:53 AM CDT Loyd Thao MD GI PROCEDURE ORDERA [place] [facility] [address] * ENDOSCOPY, COLON, SCREENING (11/08/2021 8:52 AM [...] the physician, the nurse and the ? merchandise flow team member in the procedure room. Mental Status ? [...] Procedure Code(s): ? --- Professional --- ? 80363, Colonoscopy, flexible; with removal of tumor(s), polyp(s), or ? other lesion(s) by snare technique ? --- Technical --- ? 02118, Colonoscopy, flexible; with removal of tumor(s), polyp(s), [...] abscess ? without bleeding CPT copyright 2019 [employer]. All rights reserved. The codes documented in this report are preliminary and upon pocket stitcher review may be revised to meet current compliance requirements. Dr. Loyd Thao MD Loyd Thao MD 11/08/2021 10:13:01 AM This report has been signed electronically. Number of Addenda: 0 Note Initiated On: 11/08/2021 8:52 AM [facility] 11/08/2021 8:52 AM CDT Loyd Thao MD GI PROCEDURE ORDERA [place] [facility] [place] [address] documented in this encounter Visit Diagnoses Diagnosis [...] Pepper) documented in this encounter Care Teams Director Ship Relationship Specialty Start Date End Date Viraj Romeo PA [address] [place] [address] PCP - General 12/28/20 documented as of this encounter
--- OUTSIDE RECORDS SUMMARY | 2024-06-14 23:20 | XMS_ITS | Encounter Summary ---
Author Organization [facility] Address [address] [facility] [place] [address] Care Team Providers Care Log Sorting Supervisor Name Role Phone Unavailable Primary Care Provider Unavailabl e Reason for Visit * Reason Onset Date Comments MEDICATION REFILL 10/30/2011 Encounter Details Date Type Department Care Team (Late st Contact Info) Description 10/30/2011 Refill [facility] [address] [place], [place] [id number] [place] [address] [facility] [address] [place] [address] MEDICATION REFILL Social History Tobacco [...]
--- OUTSIDE RECORDS SUMMARY | 2024-06-14 23:20 | XMS_ITS | Encounter Summary ---
Author Organization [facility] Address [address] [facility] [place] [address] Care Team Providers Care Tooling Supervisor Name Role Phone Unavailable Primary Care [...]
--- OUTSIDE RECORDS SUMMARY | 2024-06-14 23:20 | XMS_ITS | Encounter Summary ---
Author Organization [facility] Address [address] [place] [address] Care Team Providers Care Patent Leather Sorter Name Role Phone Unavailable Primary Care Provider Unavailabl e Encounter Details Date Type Department Care Team (Late st Contact Info) Description 08/29/2020 Orders Only [facility] [address] [facility], [address] [place] [address] Zelda Batista, BELL CAPTAIN-EXTENSION SERVICE AGENT [address] 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
--- OUTSIDE RECORDS SUMMARY | 2024-06-14 23:20 | XMS_ITS | Encounter Summary ---
Author Organization [facility] Address [address] [facility] [place] [address] Care Team Providers Care Salesperson Pets And Pet Supplies Name Role Phone Unavailable Primary Care Provider Unavailabl e Reason for Visit * Reason Onset Date Comments MEDICATION REFILL 10/22/2012 Encounter Details Date Type Department Care Team (Late st Contact Info) Description 10/22/2012 Refill [facility] [address] [facility] [address] [place], [place] [id number] [place] [address] [address] [facility] [[email or web address]] [address] [place] [address] MEDICATION REFILL Social History Tobacco [...]
--- OUTSIDE RECORDS SUMMARY | 2024-06-14 23:20 | XMS_ITS | Clinical Summary ---
Author Organization [facility] Address [address] [place] [address] Phone Care Team Providers Care Physician Chief Of Pathology Name Role Phone GRACIE ESQUEDA DO [phone] Reason for Visit and Chief Complaint The Chief Complaint is: patient has had cough, MA, [place], sore throat, congestion, and runny nose since Saturday Problems Includes: Problems addressed during this encounter and other active Problems No Active Problems Plan of Treatment - Return to the clinic if condition worsens or new symptoms arise - Last Documented On 06/01/2022 11:57AM ; [facility] - Patient will call for appointment as needed - Last Documented On 06/01/2022 11:57AM ; [facility] Instructions to patient Instructions for patient Last Documented On 2 11:53AM ; [facility] Assessments Includes: Assessments from this encounter Findings - Acute upper respiratory infection - Last Documented On 06/01/2022 11:57AM ; [facility] Instructions Includes: Instructions from this encounter Instructions to patient Instructions for patient Last Documented On 11:53AM ; [facility] Medical Equipment - Implanted Devices Includes: Current Devices No Medical Equipment Recorded Medications Includes: Medications discussed during this encounter and other current Medications Current Medications (continue as prescribed) Methotrexate 2.5 MG Oral Tablet 05/31/2022 Provider: Diagnosis: Last Documented On 11:55AM By BRANDO SANCHEZ ; [facility] Finasteride 5 MG Oral Tablet 05/28/2022 Provider: FRANK LOPEZ Diagnosis: Last Documented On 11:55AM By BRANDO SANCHZE ; [facility] Omeprazole 40 MG Oral Capsule Delayed Release 05/10/20 Provider: Diagnosis: Last Documented On 11:55AM By BRANDO SANCHEZ ; [facility] oxyCODONE HCl 5 MG Oral Tablet 05/07/2022 Provider: Diagnosis: Last Documented On 11:55AM By BRANDO SANCHEZ ; [facility] Fluticasone Propionate 50 MC G/ACT Nasal Suspension 04/12/2022 Provider: FAWN IBARRA PA-C Diagnosis: Last Documented On 11:55AM By BRANDO SANCHEZ ; [facility] Montelukast Sodium 10 MG Oral Tablet 04/12/2022 Prov ider: FAWN IBARRA PA-C Diagnosis: Last Documented On 11:55AM By BRANDO SANCHEZ ; [facility] rOPINIRole HCl 2 MG Oral Tablet 03/28/2022 Provider: FAWN IBARRA PA-C Diagnosis: Last Documented On 11:56AM By BRANDO SANCHEZ ; [facility] Medications Administered Includes: Administered Medications from this encounter No Administered Medications Recorded Vital Signs Includes: Vital Signs from this encounter Vital Name 06/01/2022 11:38A Pulse Rate-Sitting (bpm) 64 Temp-Oral (F) 98 Weight (lb) 221 Oxygen Saturation (%) 98 Last Documented: On 06/01/2022 11:39A M ; [facility] Results Includes: Results discussed during this encounter SARS COVID-19 FLU A & B [facility] Ordered by DAISHA ARIAS MOLD TECHNICIAN on 05/05 Collected: Reported: 06/01/2022 11:48 Last Documented On 11:49AM ; [facility] Reviewed on 06/01/2022; All test results are final unless otherwise noted. COVID neg N (Normal) Last Documented On 11:49AM ; [facility] INFLUENZA A neg (Negative) N (Normal) Last Documented On 11:49AM ; [facility] INFLUENZA B neg (negative) N (Normal) Last Documented On 11:49AM ; [facility] INT. QC ACCEPTABLE? yes N (Normal) Last Documented On 11:49AM ; [facility] LOT # & EXP. DATE [id number] 04/11/23 N (Normal) Last Documented On 2 11:49AM ; [facility] History of Present Illness Includes: History of [...] patient Last Documented On 2 11:53AM ; [facility] Patient verbalizes understanding Last Documented On 2 11:53AM ; [facility] Increase fluids Last Documented On 2 11:53AM ; [facility] Clinical summary provided to patient Last Documented On 2 11:53AM ; [facility] Medical History Includes: Medical History addressed during this encounter No Medical History Recorded Family History Includes: Family History addressed during this encounter Description Last Updated Family history unchanged 06/01/2022 Last Documented On 2 11:57AM ; [facility] Review of Systems Includes: Review of Systems [...] COVID SICK VISIT- NEW PATIENT BRANDO DELGADO MOLD TECHNICIAN-BC [facility] 06/01/20 22 11:32AM 11:52AM Upper Respiratory Infection Acute Insurance Includes: Active Insurance Policies Plan Name Member ID Group # Subscriber Relationship Effect marcelino Dates 1 - [facility]/MEDICARE ADV/AARP [id number] PASQUALE HUFFMAN Self Clinical Notes Includes: Clinical Notes from this encounter No Clinical Notes Recorded
--- OUTSIDE RECORDS SUMMARY | 2024-06-14 23:20 | XMS_ITS | Encounter Summary ---
Author Organization [facility] Address [address] [facility] [place] [address] Care Team Providers Care Paid Internship Name Role Phone Unavailable Primary Care Provider Unavailabl e Reason for Visit * Reason Comments MIGRAINE Encounter Details Date Type Department Care Team (Late st Contact Info) Description 04/13/2013 10:00 AM CLINICAL RESEARCH ASSISTANT Office Visit [facility] [address] [place], [place] [id number] [place] [address] [place] [address] Migraine (Primary Dx) Social History [...] Comments Blood Pressure 132/89 04/13/2013 10:12 AM CLINICAL RESEARCH ASSISTANT Pulse 88 04/13/2013 10:12 AM CLINICAL RESEARCH ASSISTANT Temperature - - Respiratory Rate - - Oxygen Saturation - - Inhaled Oxygen Concentration - - Weight 104.5 kg (230 lb 6.4 oz) 013 10:12 AM CLINICAL RESEARCH ASSISTANT Height 184 cm (6' 0.44 ) 04/13/2013 10: 12 AM CLINICAL RESEARCH ASSISTANT Body Mass Index 30.87 04/13/2013 10:12 AM CLINICAL RESEARCH ASSISTANT documented in this encounter Patient Instructions * Patient Instructions* Nallely Navas - 04/13/2013 10:19 AM CLINICAL RESEARCH ASSISTANT Call physician if symptoms worsen or with any questions. Take Medications as prescribed. For descriptions of a variety of neurological conditions please visit: [email or web address] ICAL RESEARCH ASSISTANT documented in this encounter Progress Notes * [...] may take with NSAIDs RTO 1 year ICAL RESEARCH ASSISTANT documented in this encounter Plan of Treatment Not on file documented as of this encounter Visit Diagnoses Diagnosis Migraine- Primary documented in this encounter
--- OUTSIDE RECORDS SUMMARY | 2024-06-14 23:20 | XMS_ITS | Encounter Summary ---
Author Organization [facility] Address [address] [place] [address] Care Team Providers Care Pipe Fitter Supervisor Name Role Phone Unavailable Primary Care Provider Unavailabl e Encounter Details Date Type Department Care Team (Late st Contact Info) Description 04/07/2020 Therapy Visit [facility] [address] [place] [address] Adilson Cutler, PAAutumnC Dept of Neurological Surgery [address] [facility] [address] [place] [id number] Social History Tobacco Use Types Packs/Day Years [...] COVID-19? No / Unsure 04/04/2020 8:21 AM MID LEVEL GAME DESIGNER documented as of this encounter Plan of Treatment Not on file documented as of this encounter Visit Diagnoses Not on filedocumented in this encounter
--- OUTSIDE RECORDS SUMMARY | 2024-06-14 23:20 | XMS_ITS | Encounter Summary ---
Author Organization [facility] Address [address] [place] [address] Care Team Providers Care Bottom Presser Name Role Phone Unavailable Primary Care Provider Unavailabl e Reason for Visit * Reason Onset Date Comments Nausea 12/07/2020 Encounter Details Date Type Department Care Team (Late st Contact Info) Description 12/07/2020 Telephone [facility] [employer] [facility] [address] [facility], [address] [place] [address] Zelda Batista APRN-AIR BREAKER OPERATOR [address] [facility] [address] [place] [address] Nausea Social History Tobacco Use [...] had kidney stones removed on 12/02grs in [place]. documented in this encounter Plan of Treatment Not on file documented as of this encounter Visit Diagnoses Not on filedocumented in this encounter
--- OUTSIDE RECORDS SUMMARY | 2024-06-14 23:20 | XMS_ITS | Referral Summary ---
Author Organization [facility] Address [address] [facility] [place] [address] Care Team Providers Care Line Pilot Name Role Phone Viraj Romeo Primary Care Provider [phone] Source Comments [facility],non-owned Affiliates and Associated Physician Practices is amultiple site organization consisting of ambulatory clinics and hospital sitesin [place], [place], [place] and [place]. This disclosure is being madepursuant to the Care Everywhere program and may not contain all information available regarding this patient. Last updated 18.[facility] Allergies Active Allergy Reactions Criticality Noted Date [...] of Treatment Not on file Care Teams Line Pilot Relationship Specialty Start Date End Date Viraj Romeo PA [address] [place] [address] PCP - General 12/28/20
--- OUTSIDE RECORDS SUMMARY | 2024-06-14 23:20 | XMS_ITS | Encounter Summary ---
Author Organization [facility] Address [address] [facility] [place] [address] Care Team Providers Care Professor Computer Science Name Role Phone Unavailable Primary Care Provider Unavailabl e Reason for Visit * Reason Onset Date Comments Medication Problem 12/13/2011 Encounter Details Date Type Department Care Team (Late st Contact Info) Description 12/13/2011 Telephone [facility] Neurosciences [address] [place] [address] [place] [address] [address] [facility] [address] [place] [address] Medication Problem Social History Tobacco [...]
--- OUTSIDE RECORDS SUMMARY | 2024-06-14 23:20 | XMS_ITS | Encounter Summary ---
Author Organization [facility] Address [address] [facility] [place] [address] Care Team Providers Care Soaping Machine Back Tender Name Role Phone Unavailable Primary Care Provider Unavailabl e Reason for Visit * Reason Onset Date Comments Question 05/05/2013 Encounter Details Date Type Department Care Team (Late st Contact Info) Description 05/05/2013 Telephone [facility] Neurosciences [address] [place], [place] [id number] [place] [address] [address] [facility] [address] [place] [address] Question Social History Tobacco Use [...] the office note with the reference number [id number]- [id number]. Fax number [phone] WORKER * Telephone Encounter - Jodi Lan - 05/05/2013 10:23 AM CST Patient called inquiring about a letter he requested from Dr. Ledesma for his employer, the [employer]. Patient stated he gave a copy of the letter from the [employer] to our office for completion. WORKER documented in this encounter Plan of Treatment Not on file documented as of this encounter Visit Diagnoses Not on filedocumented in this encounter
--- OUTSIDE RECORDS SUMMARY | 2024-06-14 23:20 | XMS_ITS | Encounter Summary ---
Author Organization [facility] Address [address] [facility] [place] [address] Care Team Providers Care Liner Checker Name Role Phone Viraj Romeo Primary Care Provider [phone] Reason for Visit * Reason Comments Refill Request Encounter Details Date Type Department Care Team (Late st Contact Info) Description 03/09/2023 Refill [facility] - [address] [address] Zelda Batista, GUEST SERVICES OFFICER-[facility] [address] [place] [address] Refill Request Social History Tobacco Use [...] on filedocumented in this encounter Care Teams Liner Checker Relationship Specialty Start Date End Date Viraj Romeo PA [address] [place] [address] PCP - General 12/28/20 documented as of this encounter
--- OUTSIDE RECORDS SUMMARY | 2024-06-14 23:20 | XMS_ITS | Encounter Summary ---
Author Organization 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
--- OUTSIDE RECORDS SUMMARY | 2024-06-14 23:20 | XMS_ITS | Encounter Summary ---
Author Organization [facility] Address [address] [facility] [place] [address] Care Team Providers Care Reception Name Role Phone Unavailable Primary Care Provider [...] COVID-19? No / Unsure 04/04/2020 8:21 AM WEB DESIGNER documented as of this encounter Plan of Treatment Not on file documented as of this encounter Visit Diagnoses Not on filedocumented in this encounter
--- OUTSIDE RECORDS SUMMARY | 2024-06-14 23:20 | XMS_ITS | Patient Health Summary ---
Author Organization [facility] Address [address] [place] [address] Care Team Providers Care Crusher Name Role Phone Viraj Romeo Primary Care Provider [phone] Note from [facility] [place]non-owned Affiliates and Associated Physician Practices is amultiple site organization consisting of ambulatory clinics and hospital sitesin [place], [place], [place] and [place]. This disclosure is being madepursuant to the Care Everywhere program and may not contain all information available regarding this patient. Last updated 18.[facility] Allergies * Hydrocodone(Itching) -Low Criticality * Perfume [...] (STL)(Performed 11/08/2021) Performed for Diagnosis deferred * CA ED EGD FLEX TRANSORAL DX(Performed 11/08/2021) * [...] Diagnosis unknown * COLONOSCOPY SCREEN(Performed 03/14/2020) * CA ED EGD FLEX TRANSORAL DX(Performed 03/14/2020) * [...] Case Report Surgical Pathology Report ? Case: [id number] ? Authorizing Provider: ??Loyd Thao MD ? Collected: ? 11/08/2021 09:49 AM ? Ordering Location: ? [facility] ?Received: ?11/08/2021 10:33 AM [...] 11/10/2021 12:14 PM T [facility] Disclaimer All histochemical and/or immunohistochemical results are interpreted with controls that demonstrate appropriate staining reactions before reporting results. Note on use of immunocytochemistry reagents: This test was developed and its performance characteristic determined by [facility], Department of Laboratory Medicine. It has not [...] 11/10/2021 12:14 PM CDT [facility] Embedded Images 11/10/2021 12:14 PM CDT [facility] Pathology/Cytology ESOPHAGEAL BIOPSY SPECIMEN / Unknown 11/08/2021 9:49 AM CDT 11/08/2021 10:33 AM CDT Miscellaneous samples (specimen) POLYP OF COLON / Unknown 11/08/2021 10:07 AM CDT 11/08/2021 10:33 AM CDT Loyd Thao MD LAB - PATHOLOGY/CYT OLOGY ORDERABLES [facility] [address] [place] [address] * HELICOBACTER PYLORI UREASE (STL) (11/08/2021 9:48 AM CDT) Only the most recent of2 resultswithin the time period is included. Helicobacter pylori Urease Initial Negative Negative 11/09/2021 10:17 AM CDT [facility] Helicobacter pylori Urease Final Negative Negative 11/09/2021 10:17 AM CDT [facility] Comment:This is an appended report. These results have been appended to a previously preliminary verified report. Microbiology GASTRIC ANTRAL BIOPSY SPECIMEN / Unknown 11/08/2021 9:48 AM CDT 11/08/2021 1:48 PM CDT Loyd Thao MD LAB - MICROBIOLOGY ORDERABLES [facility] [address] [place] [address] * EGD (11/08/2021 8:53 AM CDT) Report Endoscopy POC _ Patient Name: Samuel Sanchez ?Procedure Date: 11/08/2021 8:53 AM ? Date of : 1945 ?Admit Type: Outpatient Age: 76 ? Gender: Male Attending MD: Loyd Thoa MD _ Procedure: ? Upper GI endoscopy [...] the physician, the nurse and the ? manager cardiac in the procedure room. Mental Status ? [...] Procedure Code(s): ? --- Professional --- ? 02562, Esophagogastroduod enoscopy, flexible, transoral; with biopsy, ? single or multiple ? --- Technical --- ? 41488, Esophagogastroduod enoscopy, flexible, transoral; with biopsy, ? single or multiple Diagnosis Code(s): ? --- Professional --- ? 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 K29.70, Gastritis, unspecified, without bleeding ? K21.9, Gastro-esophageal reflux disease without esophagitis ? --- Technical --- ? 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 K29.70, Gastritis, unspecified, without bleeding ? K21.9, Gastro-esophageal reflux disease without esophagitis CPT copyright 2019 [employer]. All rights reserved. The codes documented in this report are preliminary and upon electronic specialist review may be revised to meet current compliance requirements. Dr. Loyd Thao MD Loyd Thao MD 11/08/2021 9:50:09 AM This report has been signed electronically. Number of Addenda: 0 Note Initiated On: 11/08/2021 8:53 AM [facility] 11/08/2021 8:5 3 AM CDT Loyd Thao MD GI PROCEDURE ORDERA KIERANS [facility] S[place]yes [id number] * ENDOSCOPY, COLON, SCREENING (11/08/2021 8:52 AM [...] the physician, the nurse and the ? manager cardiac in the procedure room. Mental Status ? [...] Procedure Code(s): ? --- Professional --- ? 93788, Colonoscopy, flexible; with removal of tumor(s), polyp(s), or ? other lesion(s) by snare technique ? --- Technical --- ? 86781, Colonoscopy, flexible; with removal of tumor(s), polyp(s), [...] abscess ? without bleeding CPT copyright 2019 [employer]. All rights reserved. The codes documented in this report are preliminary and upon electronic specialist review may be revised to meet current compliance requirements. Dr. Loyd Thao MD Loyd Thao MD 11/08/2021 10:13:01 AM This report has been signed electronically. Number of Addenda: 0 Note Initiated On: 11/08/2021 8:52 AM [facility] 11/08/2021 8:52 AM CDT Loyd Thao MD GI PROCEDURE ORDERPoncho MCLEAN [facility] [place] [address] * CT ABDOMEN PELVIS W CONTRAST (03/30/2020 [...] 03/30/2020 10:13 AM CDT [facility] Blood BLOOD SPECIMEN / Unknown 03/30/2020 10:00 AM CDT 03/30/2020 10:13 AM CDT Rojas Zuniga MD LAB - POINT OF CARE ORDERABLES [facility] [address] [place] [address] * MRI LUMBAR SPINE WO [...] Procedure Code(s): ? --- Professional --- ? 70317, Colonoscopy, flexible; with removal of tumor(s), polyp(s), or ? other lesion(s) by snare technique ? --- Technical --- ? 23120, Colonoscopy, flexible; with removal of tumor(s), polyp(s), [...] R10.84, Generalized abdominal pain CPT copyright 2017 [employer]. All rights reserved. The codes documented in this report are preliminary and upon electronic specialist review may be revised to meet current compliance requirements. Dr. Rojas Zuniga M.D. Rojas Zuniga MD 03/14/2020 12:47:22 PM Number of Addenda: 0 Note Initiated On: 03/14/2020 9:53 AM [facility] 03/14/2020 9:53 AM CDT Zelda Batista DOPE FIRER-ANODIZING LINE OPERATOR GI PROCEDURE OR DERABLES [facility] [address] * EGD (03/14/2020 9:26 AM CDT) Report [...] Procedure Code(s): ? --- Professional --- ? 40068, Esophagogastroduode noscopy, flexible, transoral; with biopsy, ? single or multiple ? --- Technical --- ? 54255, Esophagogastroduode noscopy, flexible, transoral; with biopsy, ? [...] R10.84, Generalized abdominal pain CPT copyright 2017 [employer]. All rights reserved. The codes documented in this report are preliminary and upon electronic specialist review may be revised to meet current compliance requirements. Dr. Rojas Zuniga M.D. Rojas Zuniga MD 03/14/2020 12:32:00 PM Number of Addenda: 0 Note Initiated On: 03/14/2020 9:26 AM [facility] 03/14/2020 9:26 AM CDT Rojas Zuniga MD GI PROCEDURE ORDERAB LES [facility] [place] [place] [address] * XR CHEST PA AND LATERAL (06/05/2016 10:58 AM ELECTRICAL CONTINUITY INSPECTOR) Anatomical Region Laterality Modality Chest Radiographic Corin ging 06/05/2016 1:44 PM ELECTRICAL CONTINUITY INSPECTOR Impressions 06/05/2016 1:44 PM ELECTRICAL CONTINUITY INSPECTOR Clear lungs. Narrative 06/05/2016 1:44 PM ELECTRICAL CONTINUITY INSPECTOR Chest x-ray 2 views. HISTORY: Rheumatoid arthritis. [...] DERMATOLOGY (03/15/2016 12:00 AM CDT) Result CASE: [id number] PATIENT: MARY SANCHEZ PATHOLOGIC DIAGNOSIS: Back: BENIGN VERRUCOUS KERATOSIS CLINICAL DATA: Irritated SK GROSS DESCRIPTION: Received is one formalin filled container labeled with the patients name. The specimen consists of a shave biopsy measuring 7x8u8gz. Jar 0. MICROSCOPIC DESCRIPTION: Sections show hyperkeratosis, papillomatosis, hypergranulosis , and acanthosis. ??These histological findings can be seen in a verruca vulgaris or a seborrheic keratosis. Electronically signed out by Stephanie Hyman M.D. 03/20/2016 2:52:57PM [facility] Comment: Performed at: Dermatopathology Laboratory [facility] Department of Dermatology [address] [place] [address], [address]th [place] [address] Phone number: [phone] FAX: [phone] 03/15/2016 03/19/2016 Historical Provider MD LAB - PATHOLOGY/C YTOLOGY ORDERABLES [facility] [address] [place] [address]. [address] [place] [address], [facility] [phone] Care Teams Crusher Relationship Specialty Start Date End Date Viraj Romeo PA [address] [place] [address] PCP - General 12/28/20
--- OUTSIDE RECORDS SUMMARY | 2024-06-14 23:20 | XMS_ITS | Encounter Summary ---
Author Organization [facility] Address [address] [facility] [place] [address] Care Team Providers Care Clinical Pharmacologist Name Role Phone Unavailable Primary Care Provider Unavailabl e Reason for Visit * Reason Onset Date Comments Refill Request 10/25/2011 Encounter Details Date Type Department Care Team (Late st Contact Info) Description 10/25/2011 Telephone [facility] access hospital [address] [place] [address] [place] [address] [facility] [address] [place] [address] Refill Request Social History Tobacco [...]
--- OUTSIDE RECORDS SUMMARY | 2024-06-14 23:20 | XMS_ITS | Encounter Summary ---
Author Organization [facility] Address [address] [facility] [address] Care Team Providers Care Electroencephalographic Technician Name Role Phone Unavailable Primary Care Provider Unavailabl e Reason for Referral * Radiology Services (Routine) - Closed Specialty Diagnoses / Procedures Referred By Contac t Referred To Contact MRI Diagnoses Chronic midline low back pain without sciatica Procedures MRI LUMBAR SPINE WO CONTRAST Adilson Cutler PA-C Dept of Neurological Surgery [address] [facility] [address] [place] [phone] Referral ID Status Reason Start Date Expiration Date Visits Re quested Visits Authorized [id number] Closed 03/08/2020 03/08/2021 1 1 Reason for Visit * Radiology Services (Routine) - Closed Specialty Diagnoses / Procedures Referred By Contac t Referred To Contact MRI Diagnoses Chronic midline low back pain without sciatica Procedures MRI LUMBAR SPINE WO CONTRAST Adilson Cutler PA-C Dept of Neurological Surgery [address] [facility] [address] [place] [phone] Referral ID Status Reason Start Date Expiration Date Visits Re quested Visits Authorized [id number] Closed 03/08/2020 03/08/2021 1 1 Encounter Details Date Type Department Care Team ([facility] Contact Info) Description 03/18/2020 1:18 PM CDT - 03/18/2020 11:59 PM CDT Hospital Encounter [facility] Health [place] [address] [place] [address] Adilson Cutler PA-C Dept of Neurological Surgery [address] [place] [address] [address] [place] [address] Discharge Disposition: Home or Self Care Social [...]
--- OUTSIDE RECORDS SUMMARY | 2024-06-14 23:20 | XMS_ITS | Encounter Summary ---
Author Organization [facility] Address [address] [facility] [place] [address] Care Team Providers Care Roller Skater Name Role Phone Unavailable Primary Care Provider Unavailabl e Reason for Visit * Reason Onset Date Comments MEDICATION REFILL 11/07/2015 Encounter Details Date Type Department Care Team (Late st Contact Info) Description 11/07/2015 Refill [facility] Neurosciences [address] [place], [place] [id number] [place] [address] [place] [address] MEDICATION REFILL Social History Tobacco [...]
--- OUTSIDE RECORDS SUMMARY | 2024-06-14 23:20 | XMS_ITS | Encounter Summary ---
Author Organization [facility] Address [address] [facility] [place] [address] Care Team Providers Care Press Setup Operator Name Role Phone Viraj Romeo Primary Care Provider [phone] Reason for Visit * Auth/Cert Specialty Diagnoses / Procedures Referred By Alcira forrest Referred To Contact Procedures COLONOSCOPY SCREEN ESOPHAGOGASTRODUODENOSCOPY (EGD) DIAGNOSTIC Referral ID Status Reason Start Date Expiration Date Visits Re quested Visits Authorized [id number] 1 1 Encounter Details Date Type Department Care Team (Late st Contact Info) Description 11/08/2021 9:32 AM CDT Anesthesia Event [facility] - Endoscopy Services [address] [place] [address] Clive Armas, DO [address] [place] [address] Nikkie Herman APRN-SUPERINTENDENT SANITATION [address] [place] [address] Anesthesia Record Procedure Summary Procedure Name Responsible [...] COMPLICATIONS: No complications documented. * Nikkie Herman APRN-SUPERINTENDENT SANITATION - 11/08/2021 8:41 AM CDT ANESTHESIA PREOPERATIVE [...] procedural Anesthetic Plan was discussed with the SUPERINTENDENT SANITATION and anesthesiologist. BMI, Height, Weight Tobacco History [...] ??? Rotator Cuff Repair Right ??? Vasectomy HAZMAT CDL DRIVER Status: No LMP for male patient. unknown [...] CDT documented in this encounter Care Teams Press Setup Operator Relationship Specialty Start Date End Date Viraj Romeo PA [address] [place] [address] PCP - General 12/28/20 documented as of this encounter
--- OUTSIDE RECORDS SUMMARY | 2024-06-14 23:20 | XMS_ITS | Encounter Summary ---
Author Organization [facility] Address [address] [facility] [place] [address] Care Team Providers Care Erisa Attorney Name Role Phone Viraj Romeo Primary Care Provider [phone] Encounter Details Date Type Department Care Team [...] on filedocumented in this encounter Care Teams Erisa Attorney Relationship Specialty Start Date End Date Viraj Romeo PA [address] [place] [address] PCP - General 12/28/20 documented as of this encounter"
--- OUTSIDE RECORDS SUMMARY | 2024-06-14 23:20 | XMS_ITS | Encounter Summary ---
Author Organization [facility] Address [address] [place] [address] Care Team Providers Care Mica Splitter Name Role Phone Unavailable Primary Care Provider Unavailabl e Reason for Visit * Reason Onset Date Comments Results 03/16/2020 egd/colon biopsy Encounter Details Date Type Department Care Team (Late st Contact Info) Description 03/16/2020 Telephone [facility] [address] [place] [address] [place] [address] [address] [address] [place] [address] Results (egd/colon biopsy) Social History [...] - 03/21/2020 11:07 AM CDT Pharmacy called ([facility] [phone])- Please clarify omeprazole, dose and strength. * [...]
--- OUTSIDE RECORDS SUMMARY | 2024-06-14 23:20 | XMS_ITS | Encounter Summary ---
Author Organization [facility] Address [address] [facility] [place] [address] Care Team Providers Care Account Executive Metalworking Name Role Phone Viraj Romeo Primary Care Provider [phone] Reason for Visit * Reason Comments Pain Abdominal Left upper side Diarrhea Encounter Details Date Type Department Care Team (Late st Contact Info) Description 04/04/2022 3:00 PM CDT Office Visit [facility] [place] [address] [address] [address] [place] [address] [address] Change in bowel function (Primary [...] CO2, BUN, CREATININE, GLUCOSE in the last 26079 hours. No results for input(s): WBC, HGB, PLTCOUNT, MCV, INR in the last 94127 hours. Invalid input(s): 5 No results for input(s): ALBUMIN, ALKPHOS, TBIL, AST, ALT in the last 79501 hours. Invalid input(s): PROTEINTOTAL No results for input(s): AMYLASE, LIPASE, FERRITIN, IRON in the last 16274 hours. Invalid input(s): SATURATION ASSESSMENT/PLAN: Samuel Sanchez [...] site documented in this encounter Care Teams Account Executive Metalworking Relationship Specialty Start Date End Date Viraj Romeo PA [address] [place] [address] PCP - General 12/28/20 documented as of this encounter
--- OUTSIDE RECORDS SUMMARY | 2024-06-14 23:20 | XMS_ITS | Encounter Summary ---
Author Organization [facility] Address [address] [place] [address] Care Team Providers Care Food And Beverage Server Name Role Phone Viraj Romeo Primary Care Provider [phone] Reason for Visit * Reason Comments Refill Request Encounter Details Date Type Department Care Team (Late st Contact Info) Description 08/25/2021 Refill [facility] [address] [facility] [place] [address] Zelda Batista, SUPERVISOR ELECTRONICS INSPECTION-[facility] [address] [facility] [address] [place] [address] Refill Request Social History Tobacco [...] esophagus documented in this encounter Care Teams Food And Beverage Server Relationship Specialty Start Date End Date Viraj Romeo PA [address] [place] [address] PCP - General 12/28/20 documented as of this encounter
--- OUTSIDE RECORDS SUMMARY | 2024-06-14 23:20 | XMS_ITS | Encounter Summary ---
Author Organization [facility] Address [address] [facility] [place] [address] Care Team Providers Care Landing Signal Officer Name Role Phone Unavailable Primary Care Provider Unavailabl e Reason for Visit * Reason Comments Refill Request Encounter Details Date Type Department Care Team (Late Contact Info) Description 03/18/2020 Refill [facility] Medical [facility] [address] [facility] [place] [address] [place] [address] [facility] [address] [place] [address] Refill Request Social History Tobacco [...]
--- OUTSIDE RECORDS SUMMARY | 2024-06-14 23:20 | XMS_ITS | Encounter Summary ---
Author Organization [facility] Address [address] [facility] [place] [address] Care Team Providers Care Architectural Project Captain Name Role Phone Unavailable Primary Care Provider Unavailabl e Reason for Visit * Reason Comments MIGRAINE Encounter Details Date Type Department Care Team (Late st Contact Info) Description 12/20/2014 11:20 AM CDT Office Visit [facility] [address] [place], [place] [id number] [place] [address] [address] [place] [address] Migraine without status migrainosus, not [...] a variety of neurological conditions please visit: [email or web address]sciences documented in this encounter Progress Notes * [...]
--- OUTSIDE RECORDS SUMMARY | 2024-06-14 23:20 | XMS_ITS | Encounter Summary ---
Author Organization [facility] Address [address] [facility] [place] [address] Care Team Providers Care Health And Safety Representative Name Role Phone Unavailable Primary Care Provider Unavailabl e Encounter Details Date Type Department Care Team (Late st Contact Info) Description 08/25/2020 Orders Only [facility] - COVID Vax [address] [place] [address] Adryan Polk MD [address] [facility] [address] [place] [address] Need for vaccination Social History [...]
--- OUTSIDE RECORDS SUMMARY | 2024-06-14 23:20 | XMS_ITS | Encounter Summary ---
Author Organization [facility] Address [address] [facility] [place] [address] Care Team Providers Care Circuit Walker Name Role Phone Viraj Romeo Primary Care Provider [phone] Reason for Visit * Reason Comments Refill Request Encounter Details Date Type Department Care Team ([facility] Contact Info) Description 12/29/2022 Refill [facility] Medical [facility] - [address] [address] Zelda Batista, LAMP SHADE [facility] [address] [place] [address] Refill Request Social History Tobacco Use [...] on filedocumented in this encounter Care Teams Circuit Walker Relationship Specialty Start Date End Date Viraj Romeo PA [address] [place] [address] PCP - General 12/28/20 documented as of this encounter
--- OUTSIDE RECORDS SUMMARY | 2024-06-14 23:20 | XMS_ITS ---
Author Organization [facility] Address [address] [place] [address] Phone Care Team Providers Care Director External Communications Name Role Phone GRACIE ESQUEDA DO [phone] Problems Includes: Active, inactive, and resolved Problems No Active Problems Plan of Treatment Findings Encounter Date Ordered patient will call [facility] appointment as needed COVID SICK VISIT- NEW PATIENT with BRANDO DELGADO COMPLEX DIRECTOR-BC 06/01/2022 Last Documented On 2 11:57AM ; [facility] Ordered return to the clinic if condition worsens or new symptoms arise COVID SICK VISIT- NEW PATIENT with BRANDO DELGADO COMPLEX DIRECTOR-BC 06/01/2022 Last Documented On 2 11:57AM ; [facility] Instructions to patient Instructions for patient Last Documented On 2 11:53AM ; [facility] Assessments Includes: Assessments for all patient encounters Findings Encounter Date Acute upper respiratory infection COVID SICK VISIT- NEW PATIENT with BRANDO DELGADO COMPLEX DIRECTOR-BC 06/01/2022 Last Documented On 2 11:57AM ; [facility] Instructions Includes: Instructions for all patient encounters Instructions to patient Instructions for patient Last Documented On 2 11:53AM ; [facility] Medical Equipment - Implanted Devices Includes: Current and historical Devices No Medical Equipment Recorded Medications Includes: Current and historical Medications Current Medications (continue as prescribed) Methotrexate 2.5 MG Oral Tablet 05/31/2022 Provider: Diagnosis: Last Documented On 2 11:55AM By BRANDO NARAYANAN ; [facility] Finasteride 5 MG Oral Tablet 05/28/2022 Provider: FRANK LOPEZ Diagnosis: Last Documented On 11:55AM By BRANDO DELGADO COMPLEX DIRECTOR- ; [facility] Omeprazole 40 MG Oral Capsule Delayed Release 05/10/20 Provider: Diagnosis: Last Documented On 2 11:55AM By BRANDO SANCHEZ ; [facility] oxyCODONE HCl 5 MG Oral Tablet 05/07/2022 Provider: Diagnosis: Last Documented On 2 11:55AM By BRANDO SANCHEZ ; [facility] Fluticasone Propionate 50 MC G/ACT Nasal Suspension 04/12/2022 Provider: FAWN IBARRA PA-C Diagnosis: Last Documented On 2 11:55AM By BRANDO SANCHEZ ; [facility] Montelukast Sodium 10 MG Oral Tablet 04/12/2022 Prov ider: FAWN IBARRA PA-C Diagnosis: Last Documented On 2 11:55AM By BRANDO SANCHEZ ; [facility] rOPINIRole HCl 2 MG Oral Tablet 03/28/2022 Provider: FAWN IBARRA PA-C Diagnosis: Last Documented On 2 11:56AM By BRANDO SANCHEZ ; [facility] Medications Administered Includes: Administered Medications [...] 06/01/2022 Last Documented On 2 11:57AM ; [facility] Review of Systems Review of Systems not [...] Subscriber Relationship Effect marcelino Dates 1 - [facility] [id number] PASQUALE Rojas Clinical Notes Includes: Signed Clinical Notes starting from 06/22/2022 No Clinical Notes Recorded
--- OUTSIDE RECORDS SUMMARY | 2024-06-14 23:20 | XMS_ITS | Encounter Summary ---
Author Organization [facility] Address [address] [place] [address] Care Team Providers Care Clamshell Operator Name Role Phone Unavailable Primary Care Provider Unavailabl e Reason for Visit * Reason Onset Date Comments Results 04/04/2020 Encounter Details Date Type Department Care Team (Late st Contact Info) Description 04/04/2020 Telephone [facility] InSequent [facility] [address] [facility], [address] [place] [address] [place] [address] [facility] [address] [place] [address] Results Social History Tobacco Use [...] COVID-19? No / Unsure 04/04/2020 8:21 AM STOCKROOM WORKER documented as of this encounter Miscellaneous Notes * Telephone Encounter - Kyree Mondragon RN - 04/04/2020 8:22 AM CST Results given to pt, telemed scheduled. KROOM WORKER * Telephone Encounter - Kyree Mondragon RN - 04/04/2020 8:22 AM CST ----- Message from Rojas Zuniga MD sent at 04/02/2020 12:11 PM CDT ----- Pls let him know CT abdomen with contrast was negative. Please schedule for follow up with Zelda mcghee. Thank you. KROOM WORKER documented in this encounter Plan of Treatment Not on file documented as of this encounter Visit Diagnoses Not on filedocumented in this encounter
--- OUTSIDE RECORDS SUMMARY | 2024-06-14 23:20 | XMS_ITS | Encounter Summary ---
Author Organization [facility] Address [address] [facility] [place] [address] Care Team Providers Care Medical Instrument Cable Fabricator Name Role Phone Unavailable Primary Care Provider Unavailabl e Reason for Visit * Reason Onset Date Comments Question 05/15/2013 Encounter Details Date Type Department Care Team (Late st Contact Info) Description 05/15/2013 Telephone [facility] Neurosciences [address] [place], [place] [id number] [place] [address] [address] [place] [address] Question Social History Tobacco Use [...] fax again. I refaxed x 5 to [phone] [place] [id number]. done E WORKER documented in this encounter Plan of Treatment Not on file documented as of this encounter Visit Diagnoses Not on filedocumented in this encounter
--- OUTSIDE RECORDS SUMMARY | 2024-06-14 23:20 | XMS_ITS | Encounter Summary ---
Author Organization [facility] Address [address] [place] [address] Care Team Providers Care Infant Lead Teacher Name Role Phone Unavailable Primary Care Provider Unavailabl e Reason for Visit * Auth/Cert Specialty Diagnoses / Procedures Referred By Contac t Referred To Contact Procedures ESOPHAGOGASTRODUODENOSCOPY (EGD) DIAGNOSTIC COLONOSCOPY SCREEN Referral ID Status Reason Start Date Expiration Date Visits Re quested Visits Authorized [id number] 1 1 Encounter Details Date Type Department Care Team (Late st Contact Info) Description 03/14/2020 10:31 AM CDT Anesthesia Event Formerly [facility] - Endoscopy Services [address] [place] [address] Samuel Mcdermott MD [address] [facility] [place] [address] Aixa Wade APRN-GLASSWARE ENGRAVER [address] [facility] [address] [place] [address] Anesthesia Record Procedure Summary Procedure Name Responsible [...] this encounter Progress Notes * Aixa Wade, MANAGER LVN-GLASSWARE ENGRAVER - 03/14/2020 12:24 PM CDT ANESTHESIA POSTOP [...] procedural Anesthetic Plan was discussed with the GLASSWARE ENGRAVER. BMI, Height, Weight Tobacco History Estimated body [...] Invalid input(s): PREGTESTUR Invalid input(s): ANIONAPART, PREALBIUMIN, [id number] documented in this encounter Miscellaneous Notes * Anesthesia Transfer of Care - Aixa Wade, MANAGER LVN-GLASSWARE ENGRAVER - 03/14/2020 12:24 PM CDT ANESTHESIA TRANSFER [...]
--- OUTSIDE RECORDS SUMMARY | 2024-06-14 23:20 | XMS_ITS | Encounter Summary ---
Author Organization [facility] Address [address] [place] [place] [address] Care Team Providers Care Marine Welder Name Role Phone Viraj Romeo Primary Care Provider [phone] Reason for Visit * Auth/Cert Specialty Diagnoses / Procedures Referred By Alcira forrest Referred To Contact Procedures COLONOSCOPY SCREEN ESOPHAGOGASTRODUODENOSCOPY (EGD) DIAGNOSTIC Referral ID Status Reason Start Date Expiration Date Visits Re quested Visits Authorized [id number] 1 1 Encounter Details Date Type Department Care Team (Late st Contact Info) Description 11/08/2021 9:45 AM CDT - 11/08/2021 10:30 AM CDT Surgery Formerly [facility] - Endoscopy Services [address] [place] [address] [place] [address] [facility] [address] [address] COLONOSCOPY SCREEN Surgery Details Date/Time Status Location OR Service Patient Class Case Class Case Type Trauma Case? 11/08/2021 9:45 AM Posted [facility] ENDO 01 Gastroenterology Surgery Day [...] STAT 11/08/2021 9:48 AM CDT Diagnosis deferred [place] ED EGD FLEX TRANSORAL DX 11/08/2021 9:45 AM CDT COLONOSCOPY SCREEN 11/08/2021 9: 45 AM CDT EGD Routine 11/08/2021 8:53 AM CDT Gastroesophageal reflux disease without esophagitis ENDOSCOPY, COLON, SCREENING Routine 11/08/2021 8:52 AM CDT Special screening for malignant neoplasms, colon documented in this encounter Results * PATHOLOGY TISSUE EXAM (STL) (11/08/2021 9:49 AM CDT) Case Report Surgical Pathology Report ? Case: [id number] ? Authorizing Provider: ??Loyd Thao MD ? Collected: ? 11/08/2021 09:49 AM ? Ordering Location: ? [facility] ?Received: ?11/08/2021 10:33 AM [...] sessile serrated adenoma. 11/10/2021 12:14 PM CDT [facility] Disclaimer All histochemical and/or immunohistochemical results are interpreted with controls that demonstrate appropriate staining reactions before reporting results. Note on use of immunocytochemistry reagents: This test was developed and its performance characteristic determined by [facility], Department of Laboratory Medicine. It has [...] interpreted with caution. 11/10/2021 12:14 PM CDT [facility] Embedded Images 11/10/2021 12:14 PM CDT [facility] Pathology/Cytology ESOPHAGEAL BIOPSY SPECIMEN / Unknown 11/08/2021 9:49 AM CDT 11/08/2021 10:33 AM CDT Miscellaneous samples (specimen) POLYP OF COLON / Unknown 11/08/2021 10:07 AM CDT 11/08/2021 10:33 AM CDT Loyd Thao MD LAB - PATHOLOGY/CYT OLOGY ORDERABLES [facility] [address] [place] [address] * HELICOBACTER PYLORI UREASE (STL) (11/08/2021 9:48 AM CDT) Helicobacter pylori Urease Initial Negative Negative 11/09/2021 10:17 AM CDT [facility] Helicobacter pylori Urease Final Negative Negative 11/09/2021 10:17 AM CDT [facility] Comment:This is an appended report. These results have been appended to a previously preliminary verified report. Microbiology GASTRIC ANTRAL BIOPSY SPECIMEN / Unknown 11/08/2021 9:48 AM CDT 11/08/2021 1:48 PM CDT Loyd Thao MD LAB - MICROBIOLOGY ORDERABLES [facility] [address] [place] [address] * EGD (11/08/2021 8:53 AM [...] the physician, the nurse and the ? fruit coordinator in the procedure room. Mental Status ? [...] Procedure Code(s): ? --- Professional --- ? 97832, Esophagogastroduod enoscopy, flexible, transoral; with biopsy, ? single or multiple ? --- Technical --- ? 09435, Esophagogastroduod enoscopy, flexible, transoral; with biopsy, ? single or multiple Diagnosis Code(s): ? --- Professional --- ? 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 K29.70, Gastritis, unspecified, without bleeding ? K21.9, Gastro-esophageal reflux disease without esophagitis ? --- Technical --- ? 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 K29.70, Gastritis, unspecified, without bleeding ? K21.9, Gastro-esophageal reflux disease without esophagitis CPT copyright 2019 [employer]. All rights reserved. The codes documented in this report are preliminary and upon smooth plater review may be revised to meet current compliance requirements. Dr. Loyd Thao MD Loyd Thao MD 11/08/2021 9:50:09 AM This report has been signed electronically. Number of Addenda: 0 Note Initiated On: 11/08/2021 8:53 AM [facility] 11/08/2021 8:53 AM CDT Loyd Thao MD GI PROCEDURE ORDERA [facility] ENDOS[facility] SUSIE Reyes [id number] * ENDOSCOPY, COLON, SCREENING (11/08/2021 8:52 AM [...] the physician, the nurse and the ? fruit coordinator in the procedure room. Mental Status ? [...] Procedure Code(s): ? --- Professional --- ? 61071, Colonoscopy, flexible; with removal of tumor(s), polyp(s), or ? other lesion(s) by snare technique ? --- Technical --- ? 21559, Colonoscopy, flexible; with removal of tumor(s), polyp(s), [...] abscess ? without bleeding CPT copyright 2019 [employer]. All rights reserved. The codes documented in this report are preliminary and upon smooth plater review may be revised to meet current compliance requirements. Dr. Loyd Thao MD Loyd Thao MD 11/08/2021 10:13:01 AM This report has been signed electronically. Number of Addenda: 0 Note Initiated On: 11/08/2021 8:52 AM [facility] 11/08/2021 8:52 AM CDT Loyd Thao MD GI PROCEDURE ORDERA VINAY [facility] [place] [address] documented in this encounter Visit Diagnoses Not [...] Pepper) documented in this encounter Care Teams Marine Welder Relationship Specialty Start Date End Date Viraj Romeo PA [address] [place] [address] PCP - General 12/28/20 documented as of this encounter
--- OUTSIDE RECORDS SUMMARY | 2024-06-14 23:20 | XMS_ITS | Encounter Summary ---
Author Organization [facility] Address [address] [facility] [place] [address] Care Team Providers Care Clinical Trials Nurse Name Role Phone Viraj Romeo Primary Care Provider [phone] Reason for Referral * Procedure (Routine) - Closed Specialty Diagnoses / Procedures Referred By Alcira forrest Referred To Contact Gastroenterology Diagnoses Gastroesophageal reflux disease without esophagitis [place] [address] [address] [place] [address] Referral ID Status Reason Start Date Expiration Date Visits Re quested Visits Authorized [id number] Closed 10/20/2021 10/20/2022 1 1 * Procedure (Routine) - Closed Specialty Diagnoses / Procedures Referred By Alcira forrest Referred To Contact Gastroenterology Diagnoses Special screening for malignant neoplasms, colon Procedures ENDOSCOPY, COLON, [place] [address] [address] [place] [address] Referral ID Status Reason Start Date Expiration Date Visits Re quested Visits Authorized [id number] Closed 10/20/2021 10/20/2022 1 1 Encounter Details Date Type Department Care Team (Late st Contact Info) Description 10/20/2021 Orders Only [facility] [place] [address] [place] [address] [place] [address] [address] [place] [address] Special screening for malignant neoplasms, [...] this encounter Patient Instructions * Patient Instructions* Kay Moore - 10/20/2021 8:22 AM CDT DENIS MCKNIGHT M.D. OFFICE: [phone] COLONOSCOPY NOTIFY OUR OFFICE IF YOU ARE [...] with [place]. >[place] [address] [facility] 2nd Floor Surgery Waiting room at 9:00 AM. >Your procedure is scheduled for 10:00 AM . >You will be given medication for this procedure. YOU MUST HAVE A AIR PRESS OPERATOR PRESENT TO TAKE YOU HOME. >It is ultimately your responsibility to verify insurance coverage and obtain Referral if needed. IF YOU HAVE QUESTIONS PLEASE CALL THE OFFICE AT [phone]. documented in this encounter Plan of Treatment [...] the physician, the nurse and the ? outside sales executive in the procedure room. Mental Status ? [...] Procedure Code(s): ? --- Professional --- ? 53720, Esophagogastroduod enoscopy, flexible, transoral; with biopsy, ? single or multiple ? --- Technical --- ? 41153, Esophagogastroduod enoscopy, flexible, transoral; with biopsy, ? single or multiple Diagnosis Code(s): ? --- Professional --- ? 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 K29.70, Gastritis, unspecified, without bleeding ? K21.9, Gastro-esophageal reflux disease without esophagitis ? --- Technical --- ? 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 K29.70, Gastritis, unspecified, without bleeding ? K21.9, Gastro-esophageal reflux disease without esophagitis CPT copyright 2019 [employer]. All rights reserved. The codes documented in this report are preliminary and upon hand roller engraver review may be revised to meet current compliance requirements. Dr. Denis Mcknight MD Denis Mcknight MD 11/08/2021 9:50:09 AM This report has been signed electronically. Number of Addenda: 0 Note Initiated On: 11/08/2021 8:53 AM [facility] 11/08/2021 8:53 AM CDT Denis Mcknight MD GI PROCEDURE BRITANYA VINAY [facility] END[facility] S[place] Reyes [id number] * ENDOSCOPY, COLON, SCREENING (11/08/2021 8:52 AM [...] the physician, the nurse and the ? outside sales executive in the procedure room. Mental Status ? [...] Procedure Code(s): ? --- Professional --- ? 95944, Colonoscopy, flexible; with removal of tumor(s), polyp(s), or ? other lesion(s) by snare technique ? --- Technical --- ? 45504, Colonoscopy, flexible; with removal of tumor(s), polyp(s), [...] abscess ? without bleeding CPT copyright 2019 [employer]. All rights reserved. The codes documented in this report are preliminary and upon hand roller engraver review may be revised to meet current compliance requirements. Dr. Denis Mcknight MD Denis Mcknight MD 11/08/2021 10:13:01 AM This report has been signed electronically. Number of Addenda: 0 Note Initiated On: 11/08/2021 8:52 AM [facility] 11/08/2021 8:52 AM CDT Denis Mcknight MD GI PROCEDURE ORDERA VINAY [facility] [place] [address] documented in this encounter Visit Diagnoses Diagnosis Special screening for malignant neoplasms, colon- Primary Gastroesophageal reflux disease without esophagitis Esophageal reflux documented in this encounter Care Teams Clinical Trials Nurse Relationship Specialty Start Date End Date Viraj Romeo PA [address] [place] [address] PCP - General 12/28/20 documented as of this encounter
--- OUTSIDE RECORDS SUMMARY | 2024-06-14 23:20 | XMS_ITS | Encounter Summary ---
Author Organization [facility] Address [address] [place] [address] Care Team Providers Care Biscuit Factory Worker Name Role Phone Unavailable Primary Care Provider Unavailabl e Reason for Referral * Procedure (Routine) - Closed Specialty Diagnoses / Procedures Referred By Alcira forrest Referred To Contact Gastroenterology Diagnoses Abnormal weight loss Change in bowel function Procedures ENDOSCOPY, COLON, SCREENING Zelda Batista APRN-CNP [address] [place] [address] Referral ID Status Reason Start Date Expiration Date Visits Re quested Visits Authorized [id number] Closed 03/11/2020 03/11/2021 1 1 Reason for Visit * Reason Comments Pain Abdominal after eating Gastroesophageal Reflux Encounter Details Date Type Department Care Team (Late st Contact Info) Description 03/11/2020 9:45 AM CDT Video Visit [facility] [employer] [facility] [address] [facility] [place] [address] Zelda Batista APRN-CNP [address] [facility] [address] [place] [address] Abnormal weight loss ; Change [...] this encounter Progress Notes * Zelda Batista, DEPUTY JAILER-NET DEVELOPER CONTRACT - 03/11/2020 9:45 AM CDT Telemedicine Note Today's visit was conducted virtually due to COVID-19 countermeasures. The patient has given verbalconsent to have today's visit conducted by this same means with treatment provided remotely. The patient verbally consents to the billing and collection practices of [facility]. Patient location: Home This encounter was [...] file Gets together: Not on file Attends alevism service: Not on file Active member of [...] Procedure Code(s): ? --- Professional --- ? 33675, Colonoscopy, flexible; with removal of tumor(s), polyp(s), or ? other lesion(s) by snare technique ? --- Technical --- ? 33911, Colonoscopy, flexible; with removal of tumor(s), polyp(s), [...] R10.84, Generalized abdominal pain CPT copyright 2017 [employer]. All rights reserved. The codes documented in this report are preliminary and upon tube pusher review may be revised to meet current compliance requirements. Dr. Rojas Zuniga M.D. Rojas Zuniga MD 03/14/2020 12:47:22 PM Number of Addenda: 0 Note Initiated On: 03/14/2020 9:53 AM PSYCHIATRIC ENDOSCOPY 03/14/2020 9:53 AM CDT Zelda Batista DEPUTY JAILER-NET DEVELOPER CONTRACT GI PROCEDURE OR DERABLES Performing Organization Address City/State/[facility] Co de Phone Number PS[place] [address] documented in this encounter Visit Diagnoses Diagnosis Abnormal weight loss- Primary Loss of weight Change in bowel function Other symptoms involving digestive system Gastroesophageal reflux disease, unspecified whether esophagitis present documented in this encounter
--- OUTSIDE RECORDS SUMMARY | 2024-06-14 23:20 | XMS_ITS | Encounter Summary ---
Author Organization [facility] Address [address] [facility] [place] [address] Care Team Providers Care Soda Dialyzer Name Role Phone Unavailable Primary Care Provider Unavailabl e Reason for Referral * Radiology Services (Routine) - Closed Specialty Diagnoses / Procedures Referred By Contac t Referred To Contact CT Scan Diagnoses Abdominal pain, unspecified abdominal location Procedures CT ABDOMEN [place] [address] [address] [place] [address] Referral ID Status Reason Start Date Expiration Date Visits Re quested Visits Authorized [id number] Closed 03/16/2020 03/16/2021 1 1 Reason for Visit * Radiology Services (Routine) - Closed Specialty Diagnoses / Procedures Referred By Contac t Referred To Contact CT Scan Diagnoses Abdominal pain, unspecified abdominal location Procedures CT ABD[place] [address] [address] [place] [address] Referral ID Status Reason Start Date Expiration Date Visits Re quested Visits Authorized [id number] Closed 03/16/2020 03/16/2021 1 1 Encounter Details Date Type Department Care Team (Latest Contact Info) Description 03/30/2020 9:48 AM CDT - 03/30/2020 11:59 PM CDT Hospital Encounter [facility] Health Imaging Services - [place] Scan [address] [place] [address] [place] [address] [facility] [address] [place] [address] Discharge Disposition: Home or Self [...] - 1.20 mg/dL 03/30/2020 10:13 AM CDT [facility] Blood BLOOD SPECIMEN / Unknown 03/30/2020 10:00 AM CDT 03/30/2020 10:13 AM CDT Rojas Zuniga MD LAB - POINT OF CARE ORDERABLES Performing Organization Address City/State/[facility] Co de Phone Number [facility] [address] [place] [address] documented in this encounter Visit [...]
--- OUTSIDE RECORDS SUMMARY | 2024-06-14 23:20 | XMS_ITS | Encounter Summary ---
Author Organization [facility] Address [address] [facility] [place] [address] Care Team Providers Care Chip Bin Conveyor Tender Name Role Phone Unavailable Primary Care Provider Unavailabl e Reason for Visit * Reason Onset Date Comments Letter 08/11/2012 Encounter Details Date Type Department Care Team (Late st Contact Info) Description 08/11/2012 Telephone [facility] Neurosciences [address] [place], [place] [id number] [place] [address] [address] [facility] [address] [place] [address] Letter Social History Tobacco Use [...] seizures. Letter is to be faxed to [phone] attention Gordy Ramires. documented in this encounter Plan of Treatment Not on file documented as of this encounter Visit Diagnoses Not on filedocumented in this encounter
--- OUTSIDE RECORDS SUMMARY | 2024-06-14 23:20 | XMS_ITS | Encounter Summary ---
Author Organization [facility] Address [address] [facility] [place] [address] Care Team Providers Care Assistant Auto Center Manager Name Role Phone Unavailable Primary Care Provider Unavailabl e Reason for Visit * Reason Comments Refill Request Encounter Details Date Type Department Care Team (Late st Contact Info) Description 12/03/2020 Refill [facility] [address], [address] [place] [address] Zelda Batista, COUNTERINTELLIGENCE AGENT-[facility] [address] [facility] [address] [place] [address] Refill Request Social History Tobacco Use [...]
--- OUTSIDE RECORDS SUMMARY | 2024-06-14 23:20 | XMS_ITS | Encounter Summary ---
Author Organization [facility] Address [address] [place] [address] Care Team Providers Care Contour Path Tape Mill Operator Name Role Phone Unavailable Primary Care [...]
--- OUTSIDE RECORDS SUMMARY | 2024-06-14 23:20 | XMS_ITS | Encounter Summary ---
Author Organization [facility] Address [address] [facility] [place] [address] Care Team Providers Care Broiler Chef Or Cook Name Role Phone Unavailable Primary Care Provider Unavailabl e Reason for Visit * Reason Comments MIGRAINE Encounter Details Date Type Department Care Team (Late st Contact Info) Description 06/09/2012 12:00 PM ACUPUNCTURIST Office Visit [facility] [address] [place], [place] [id number] [place] [address] [facility] [address] [place] [address] Migraine (Primary Dx) Social History [...] Comments Blood Pressure 123/82 06/09/2012 12:22 PM ACUPUNCTURIST Pulse 97 06/09/2012 12:22 PM ACUPUNCTURIST Temperature - - Respiratory Rate - - Oxygen Saturation - - Inhaled Oxygen Concentration - - Weight 107.5 kg (237 lb) 06/09/2012 12:22 PM ACUPUNCTURIST Height 185.4 cm (6' 1 ) 06/09/2012 12:22 PM ACUPUNCTURIST Body Mass Index 31.27 06/09/2012 12:22 PM ACUPUNCTURIST documented in this encounter Patient Instructions * Patient Instructions* Danny Eloina Viky - 06/09/2012 12:35 PM ACUPUNCTURIST Call physician if symptoms worsen or with any questions. Take Medications as prescribed. For descriptions of a variety of neurological conditions please visit: [email or web address] UNCTURIST documented in this encounter Progress Notes * [...] may take with NSAIDs RTO 1 year UNCTURIST documented in this encounter Plan of Treatment Not on file documented as of this encounter Visit Diagnoses Diagnosis Migraine- Primary Migraine, unspecified, without mention of intractable migraine without mention of status migrainosus documented in this encounter
--- OUTSIDE RECORDS SUMMARY | 2024-06-14 23:20 | XMS_ITS | Encounter Summary ---
Author Organization [facility] Address [address] [facility] [place] [address] Care Team Providers Care Senior Mechanical Project Engineer Name Role Phone Unavailable Primary Care Provider Unavailabl e Encounter Details Date Type Department Care Team (Late st Contact Info) Description 06/05/2016 10:40 AM EDUCATION SUPERVISOR - 06/05/2016 11:59 PM [facility] Hospital Encounter [facility] [facility] [address] [place] [address] [place] [address] [facility] [address] [place] [address] Discharge Disposition: Home or Self [...] XR CHEST 2VW Routine 06/05/2016 10:58 AM EDUCATION SUPERVISOR Rheumatoid arthritis involving multiple sites with positive rheumatoid factor (HCC) documented in this encounter Results * XR CHEST PA AND LATERAL (06/05/2016 10:58 AM EDUCATION SUPERVISOR) Anatomical Region Laterality Modality Chest Radiographic Corin ging 06/05/2016 1:44 PM EDUCATION SUPERVISOR Impressions 06/05/2016 1:44 PM EDUCATION SUPERVISOR Clear lungs. Narrative 06/05/2016 1:44 PM EDUCATION SUPERVISOR Chest x-ray 2 views. HISTORY: Rheumatoid arthritis. [...]
--- OUTSIDE RECORDS SUMMARY | 2024-06-14 23:20 | XMS_ITS | Encounter Summary ---
Author Organization [facility] Address [address] [facility] [place] [address] Care Team Providers Care Cnc Applications Engineer Name Role Phone Viraj Romeo Primary Care Provider [phone] Reason for Visit * Reason Comments Refill Request Encounter Details Date Type Department Care Team ([facility] Contact Info) Description 05/18/2023 Refill [facility] Medical [facility] - [address] [address] Zelda Batista, [facility]IC [facility]ES [facility] [address] [place] [phone] Refill Request Social History Tobacco Use [...] on filedocumented in this encounter Care Teams Cnc Applications Engineer Relationship Specialty Start Date End Date Viraj Romeo PA [address] [place] [address] PCP - General 12/28/20 documented as of this encounter
--- OUTSIDE RECORDS SUMMARY | 2024-06-14 23:20 | XMS_ITS | Encounter Summary ---
Author Organization [facility] Address [address] [place] [address] Care Team Providers Care Steel Engraver Name Role Phone Unavailable Primary Care Provider Unavailabl e Reason for Visit * Reason Onset Date Comments Follow-up 03/22/2020 Encounter Details Date Type Department Care Team (Late st Contact Info) Description 03/22/[address] [facility] [place] [address] [address] Adilson Cutler PA-C Dept of Neurological Surgery [address] [facility] [address] [place] [address] Follow-up Social History Tobacco Use [...]
--- OUTSIDE RECORDS SUMMARY | 2024-06-14 23:20 | XMS_ITS | Encounter Summary ---
Author Organization [facility] Address [address] [place] [address] Care Team Providers Care Statement Request Clerk Name Role Phone Viraj Romeo Primary Care Provider [phone] Reason for Visit * Reason Onset Date Comments Results 11/13/2021 Egc colon Encounter Details Date Type Department Care Team (Late st Contact Info) Description 11/13/2021 Telephone [facility] [place] [address] [place] [address] [place] [address] [address] [address] Results (Egc colon) Social History [...] reflux documented in this encounter Care Teams Statement Request Clerk Relationship Specialty Start Date End Date Viraj Romeo PA [address] [place] [address] PCP - General 12/28/20 documented as of this encounter
--- OUTSIDE RECORDS SUMMARY | 2024-06-14 23:21 | XMS_ITS | Encounter Summary ---
Author Organization [facility] Address [address] [facility] [place] [address] Phone Care Team Providers Care Marketing Writer Name Role Phone Fawn Romeo Primary Care Provider [phone] Reason for Visit * Reason Comments Flank Pain * Auth/Cert Specialty Diagnoses / Procedures Referred By Contac t Referred To Contact Diagnoses Ureterolithiasis Right Ureterolithiasis with severe hydroureteronephrosis Referral ID Status Reason Start Date Expiration Date Visits Re quested Visits Authorized [id number] 1 1 Encounter Details Date Type Department Care Team (Late st Contact Info) Description 02/06/2020 11:40 AM CDT - 02/06/2020 12:45 PM CDT Surgery [facility] Periop [address] [place] [address] Elizabeth Alba MD [address] [facility] [address] [place] [address] CYSTOSCOPY HOLMIUM LASER, RIGHT STENT INSERTION, BASKET STONE EXTRACTION, RIGHT URETEROSCOPY Surgery Details Date/Time Status Location OR Service Patient Class Case Cl ass Case Type Trauma Case? 02/06/2020 11:40 AM Posted [facility] MAIN OR 01 Urology Inpatient Urgent Panel [...] MD - 02/08/2020 10:52 AM CDT [facility] DISCHARGE SUMMARY Name: Samuel Sanchez Age: 74 y.o. : 1945 Attending Physician: Esa Castaneda MD Admission Date/Time: 02/05/2020 Expected Discharge Date: Primary Care Physician: OMAR VIGIL Discharging Provider: Esa Castaneda MD INSTRUCTIONS FOR PHYSICIANS ON FOLLOW UP AFTER DISCHARGE: Follow-up Information Follow up With Specialties Details Why Contact Info Fawn Romeo PAC Physician Locker Room Supervisor Follow up in 1 week(s) [address] [place] [id number] Elizabeth Alba MD Urology Follow up in 2 week(s) with renal US #2 [facility] [id number] Discharge Instructions: Discharge Condition: improved Disposition: Home [...] GERD, history of migraines, who presented to [facility] with complaints of right flank pain [...] found for: HGBA1C No results found for: [id number] No results found for: CPK, CPKI, CKMB, CKMBNI, CKMBPOCT, CKMBRELINDX, TROPONINI, POCTRP No results found for: FERRITIN No components found for: FOLATE No results found for: PHARTERIAL, PO2ART, BMB3QUF, CO2ART, O2ART No results found for: LACACIDPOCT, [...] Your Medications These medications were sent to [id number] - [facility] [address] [facility] [address] [facility] [place] [address] Hours: 24-hours ?? HYDROcodone-acetaminophen 5-325 MG Tabs [...] Thank you very much for allowing the [facility] Adult Hospitalist Service to participate in the care of this patient. If you have any questions, please don't hesitate to call. Signed: Esa Castaneda MD, 02/08/2020, 10:52 AM CDT documented in this encounter Discharge Instructions * Attachments The following attachments cannot be sent through Care Everywhere. * Angioplasty and Stenting, Renal ([place]) * Amoxicillin; Clavulanic Acid tablets ([place]) * Acetaminophen; Hydrocodone tablets or capsules ([place]) * Levofloxacin tablets ([place]) * Phenazopyridine tablets ([place]) documented in this encounter Medications at Time [...] MD - 02/07/2020 1:35 PM CDT [facility] INPATIENT DAILY PROGRESS NOTE Anticipated Date of [...] Results: No results found for: PHARTERIAL, PO2ART, BGX8XFV, CO2ART, O2ART Lab Results Component Value Date [...] for: LACACIDPOCT, LACTICA No results found for: [id number] No results found for: FERRITIN Lab Results Component Value Date GLUCOSEPOCT 89 02/06/2020 EKG: Ekg 12 Lead Result Date: 02/07/2020 Sinus rhythm with borderline 1st degree A-V block Comparison Summary: No serial comparison made Summary: Borderline ECG [place] [id number] on 02/07/2020 6:57:21 AM Imaging: No results [...] MD - 02/07/2020 9:36 AM CDT [facility] DAILY PROGRESS NOTE Anticipated Date of [...] Results: No results found for: PHARTERIAL, PO2ART, WEF4BIF, CO2ART, O2ART Lab Results Component Value Date [...] for: LACACIDPOCT, LACTICA No results found for: [id number] No results found for: FERRITIN Lab Results Component Value Date GLUCOSEPOCT 89 02/06/2020 EKG: Ekg 12 Lead Result Date: 02/07/2020 Sinus rhythm with borderline 1st degree A-V block Comparison Summary: No serial comparison made Summary: Borderline ECG [place] [id number] on 02/07/2020 6:57:21 AM Imaging: Xr Surgical Exam Result Date: 02/06/2020 IMPRESSION: 1. Intraoperative fluoroscopic images showing a dilated right ureter with subsequent placement of a right ureteral stent. Please see operative report for further details. By: Esa Castaneda MD, 02/07/2020 9:36 AM CDT * Esa Castaneda MD - 02/06/2020 5:00 PM CDT [facility] DAILY PROGRESS NOTE Anticipated Date of [...] Results: No results found for: PHARTERIAL, PO2ART, WGR4NWK, CO2ART, O2ART Lab Results Component Value Date [...] for: LACACIDPOCT, LACTICA No results found for: [id number] No results found for: FERRITIN Lab Results [...] this encounter H&P Notes * Nita Jerez, HEARING AID ASSISTANT, SUPERVISOR WATER TREATMENT PLANT - 02/06/2020 1:45 AM CDT [facility] ADMISSION HISTORY & PHYSICAL HPI: Samuel Sanchez is a 74 y.o. 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 [...] 02/05/2020 No results found for: PHARTERIAL, PO2ART, TBL5ACV, CO2ART, O2ART No results found for: CPK, [...] 02/06/2020 11:30 AM CDT Associated attestation - sEa Castaneda MD - 02/06/2020 11:30 AM CDT [...] and stent placement Surgeon(s): Elizabeth Alba MD SUPERVISOR GROWER: Nikki Sr APN, CRNA Estimated Blood Loss: [...] file Gets together: Not on file Attends judaism service: Not on file Active member of [...] by Ariel Canseco BB: DEVIN Report ID: [id number] Reading Location: [address] Number of Diagnoses or Management Options [...] CRNA - 02/08/2020 2:10 PM CDT [email or web address] Anesthesia Assessment: Date of Procedure: 02/06/2020 Surgeon: [...] cytoscopy. Call light within reach. Patient educated furnace combustion tester light. Taken 02/06/2020 0821 by Elan Gavin [...] is calm and cooperative. IV fluids infusing. [place] was given for pain. Will reassess pain [...] room. * Plan of Care - Ellen oFng RN - 02/06/2020 4:48 AM CDT Problem: [...] No alarms present. Pt. Oriented and education furnace combustion tester light use. documented in this encounter Plan [...] PM T: ??02/12/2020 3:34 PM Report ID: [id number] Reading Location: ??[id number] Procedure Note Sulaiman Gar MD - 02/12/2020 [...] by Sulaiman Gar M.D., JR: Report ID: [id number] Reading Location: [id number] IMPRESSION: 1. Mild right pelviectasis. This is similar to the ultrasound from 02/16/2011, with improved hydronephrosis compared with CT dated 02/05/2020. 2. Moderate left hydronephrosis. Elizabeth Alba MD [facility] US ORDERABLES Final Res ult * (ABNORMAL) URINALYSIS REFLEX IF INDICATED BY ABNORMAL RESULTS (02/06/2020 5:52 PM CDT) Only the most recent of2 resultswithin the time period is included. SPECIFIC GRAVITY 1.010 1.003 - 1.030 02/06/2020 6:23 PM CDT [facility] URINE PH 6.0 5.0 - 9.0 02/06/2020 6:23 PM CDT [facility] WBC ESTERASE 100 /uL(A) Negative 02/06/2020 6:23 PM CDT [facility] NITRITE Positive(A) Negative 02/06/2020 6:23 PM CDT [facility] PROTEIN, RANDOM URINE 100 mg/dL(A) Negative 02/06/2020 6:23 PM CDT [facility] URINE GLUCOSE, QUAL Negative Negative 02/06/2020 6:23 PM CDT [facility] URINE KETONES Negative Negative 02/06/2020 6:23 PM CDT [facility] UROBILINOGEN Normal Normal mg/dL 02/06/2020 6:23 PM CDT [facility] URINE BILIRUBIN Negative Negative 0 6:23 PM CDT [facility] URINE BLOOD 250 /uL(A) Negative vinod/ul 02/06/2020 6:23 PM CDT [facility] URINALYSIS COLOR Red Brown 02/06/2020 6:23 PM CDT [facility] URINALYSIS CLARITY Very Cloudy 02/06/2020 6:23 PM CDT [facility] WBC (Urine) 11-20(A) Negative, 0-5 /hpf 02/06/2020 6:23 PM CDT [facility] URINE RBC'S 51-150(A) Negative, 0-2 /hpf 02/06/2020 6:23 PM CDT [facility] EPITHELIAL CELLS Occasional /lpf 02/06/2020 6:23 PM CDT [facility] BACTERIA, URINE Many(A) Negative /hpf 02/06/2020 6:23 PM CDT [facility] Urine URINE SPECIMEN / Unknown Non-Phlebotomy Collection / Unknown 02/06/2020 5:52 PM CDT 02/06/2020 6:00 PM CDT us Esa Castaneda MD URINE ORDERABLES Final R esult [facility] [address] [place] [address] * Culture, Blood (02/06/2020 5:32 PM CDT) Only the most recent of2 resultswithin the time period is included. CULTURE RESULTS NO GROWTH WITHIN 5 DAYS, FINAL RESULT 02/11/2020 6:00 PM CDT [facility] Culture BLOOD SPECIMEN / Unknown Venipuncture / Unknown 02/06/2020 5:32 PM CDT 02/06/2020 5:34 PM CDT us Esa Castaneda MD MICROBIOLOGY - GENERAL O RDERABLES Final Result [facility] [address] [place] [address], [place] * POCT Glucose (02/06/2020 3:06 PM CDT) GLUCOSE,BEDSIDE POCT 89 70 - 99 mg/dL 02/06/2020 3:13 PM CDT [facility] Blood 02/06/2020 3:06 PM CDT 02/06/2020 3:13 PM CDT us Esa Castaneda MD POINT OF CARE TESTING Fi nal Result [facility] [place] [address] * XR SURGICAL EXAM (02/06/2020 12:55 PM [...] PM T: ??02/06/2020 2:57 PM Report ID: [id number] Reading Location: ??[id number] Procedure Note Jose Marrero MD - 02/06/2020 [...] Jose Marrero M.D. LB: VANIA Report ID: [id number] Reading Location: [id number] IMPRESSION: 1. Intraoperative fluoroscopic images showing a dilated right ureter with subsequent placement of a right ureteral stent. Please see operative report for further details. Elizabeth Alba MD [facility] DIAGNOSTIC ORDERABLES F inal Result * Pathology Surgical (02/06/2020 12:29 PM CDT) Case Report Surgical Pathology Report ? Case: [id number] ? Authorizing Provider: ??Elizabeth Alba MD ? Collected: ? 02/06/2020 12:29 PM ? Ordering Location: ? [facility] ? Received: ?02/09/2020 09:03 AM ? [facility] ? Main OR ? Pathologist: ? Tila Manzanares, ? MD ? Specimen: ?Stone, RIGHT URETERAL STONE ? 02/09/2020 1:48 PM CDT [facility] FINAL DIAGNOSIS Calculus, Right Ureteral, Removal: - Nephrolithiasis (gross examination only). 02/09/2020 1:48 PM CDT [facility] Pre-Operative Diagnosis UNKNOWN 02/09/2020 1:48 PM CDT [facility] Gross Description A. RIGHT URETERAL STONE [...] examination. KS/dv 02/09/2020 1:48 PM CDT [facility] Tissue STONE - BODY MATERIAL / Unknown 02/06/2020 12:29 PM CDT 02/09/2020 9:03 AM CDT Elizabeth Alba MD PATHOLOGY/CYTOLOGY ORDERABL ES Final Result Performing Organization Address City/State/[facility] Co de Phone Number [facility] [address] [place] [address] * (ABNORMAL) CBC with Auto Differential (02/06/2020 4:03 AM CDT) Only the most recent of2 resultswithin the time period is included. WBC 8.06 4.00 - 12.00 10(3)/mcL 02/06/2020 5:36 AM CDT [facility] RBC 4.56 4.40 - 5.80 10(6)/mcL 02/06/2020 5:36 AM CDT [facility] HEMOGLOBIN (HGB) 14.5 13.0 - 16.5 g/dL 02/06/2020 5:36 AM CDT [facility] HEMATOCRIT (HCT) 44.3 38.0 - 50.0 % 02/06/2020 5:36 AM CDT [facility] MCV 97.1(H) 82.0 - 96.0 fL 02/06/2020 5:36 AM CDT [facility] MCH 31.8 26.0 - 32.0 pg 02/06/2020 5:36 AM CDT [facility] MCHC 32.7 31.0 - 36.0 g/dL 02/06/2020 5:36 AM CDT [facility] PLATELET COUNT 145 140 - 440 10(3)/mcL 02/06/2020 5:36 AM CDT [facility] RDW 13.1 11.8 - 15.5 % 02/06/2020 5:36 AM CDT [facility] MPV 11.3 8.0 - 12.6 fL 02/06/2020 5:36 AM CDT [facility] NEUTROPHILS 70.8(H) 40.0 - 68.0 % 02/06/2020 5:36 AM CDT [facility] LYMPHOCYTES 15.3(L) 19.0 - 49.0 % 02/06/2020 5:36 AM CDT [facility] MONOCYTES 9.2 3.0 - 13.0 % 02/06/2020 5:36 AM CDT [facility] EOSINOPHILS 4.2 0.0 - 8.0 % 02/06/2020 5:36 AM CDT [facility] BASOPHILS 0.5 0.0 - 1.0 % 02/06/2020 5:36 AM CDT [facility] ABSOLUTE NEUTROPHILS 5.71(H) 1.40 - 5.30 10(3)/mcL 02/06/2020 5:36 AM CDT [facility] ABSOLUTE LYMPHOCYTES 1.23 0.90 - 3.30 10(3)/mcL 02/06/2020 5:36 AM CDT [facility] ABSOLUTE MONOCYTES 0.74 0.10 - 0.90 10(3)/[facility] 02/06/2020 5:36 AM CDT [facility] ABSOLUTE EOSINOPHIL 0.34 0.00 - 0.50 10(3)/[facility] 02/06/2020 5:36 AM CDT [facility] ABSOLUTE BASOPHILS 0.04 0.00 - 0.10 10(3)/[facility] 02/06/2020 5:36 AM CDT [facility] NRBC PER 100 WBC 0 02/06/20 20 5:36 AM CDT [facility] Blood Venipuncture / Unknown 02/06/2020 4:03 AM CDT 02/06/2020 5:28 AM CDT us Nita Jerez FARM PRODUCTS SHIPPER, SUPERVISOR W[employer] HEMATOLOGY ORDERABLES F inal Result [facility] [address] [place] [address] * (ABNORMAL) BMP with Ca, Total (02/06/2020 4:03 AM CDT) SODIUM 141 136 - 144 mmol/L 02/06/2020 5:59 AM CDT [facility] POTASSIUM 3.9 3.5 - 5.1 mmol/L 02/06/2020 5:59 AM CDT [facility] CHLORIDE 105 100 - 110 mmol/L 02/06/2020 5:59 AM CDT [facility] CO2, VENOUS 26 22 - 32 mmol/L 02/06/2020 5:59 AM CDT [facility] ANION GAP 13.9 8.0 - 20.0 mmol/L 02/06/2020 5:59 AM CDT [facility] GLUCOSE 73 70 - 99 mg/dL 02/06/2020 5:59 AM CDT [facility] BUN 25(H) 8 - 23 mg/dL 02/06/2020 5:59 AM CDT [facility] CREATININE, BLOOD 1.13 0.80 - 1.30 mg/dL 02/06/2020 5:59 AM CDT [facility] BUN/CREATININE RATIO 22(H) 12 - 20 ratio 02/06/2020 5:59 AM CDT [facility] CALCIUM 9.0 8.9 - 10.3 mg/dL 02/06/2020 5:59 AM CDT [facility] GFR, EST. NONAFRICAN >60 >=60 02/06/2020 5:59 AM CDT [facility] GFR, EST. >60 >=60 02/06/2020 5:59 AM CDT [facility] Comment: Creatinine Clearance is the preferred criteria for selecting drug dose adjustments in renally impaired patients. ??The GFR is provided as additional pertinent clinical information. GFR is reported in mL/min/1.73 sq m. Blood Venipuncture / Unknown 02/06/2020 4:03 AM CDT 02/06/2020 5:28 AM CDT us Nita Jerez FARM PRODUCTS SHIPPER, SUPERVISOR [employer] CHEMISTRY ORDERABLES Fi nal Result [facility] [address] [place] [address] * Pre-Procedural COVID-19 PCR Screening (02/06/2020 3:57 AM CDT) SARSCOV2 NOT DETECTED (Reference Range for this test is Not Detected) 02/07/2020 7:08 AM CDT [facility] Swab NASOPHARYNGEAL STRUCTURE / Unknown Non-Phlebotomy Collection / Unknown 02/06/2020 3:57 AM CDT 02/06/2020 4:07 AM CDT Narrative [facility] - 02/07/2020 7:08 AM CDT Authorized Fact Sheets about this test for providers and patients are available at: https://www.fda.gov/medical-devices/klfhosqtl-ffiuvheilh-lfzlgst-devices/emergen -us e-authorizations us Nita Jerez FARM PRODU[employer] SHIPPER, SUPERVISOR [employer] MICROBIOLOGY - GENERAL ORDERABLES Final Result [facility] [address] [place] [address], [place] * EKG 12 LEAD (02/06/2020 1:31 AM CDT) Ventricular Rate BPM EXTERNAL EKG Atrial Rate BPM EXTERNAL EKG P-R Interval 204 ms EXTERNAL EKG QRS Duration 80 ms EXTERNAL EKG Q-T Duration 444 ms EXTERNAL EKG QTC CALCULATION 425 ms EXTERNAL EKG P [place] 18 degrees EXTERNAL EKG R [place] -2 degrees EXTERNAL EKG T [place] 51 degrees EXTERNAL EKG 02/06/2020 1:31 AM CDT Impressions EXTERNAL EKG - 02/07/2020 6:57 AM CDT Sinus rhythm with borderline 1st degree A-V block Comparison Summary: No serial comparison made Summary: Borderline ECG [place] [id number] on 02/07/2020 6:57:21 AM Narrative Procedure Note Ezequiel Feliz DO - 02/07/2020 IMPRESSION: Sinus rhythm with borderline 1st degree A-V block Comparison Summary: No serial comparison made Summary: Borderline [place] [id number] on 02/07/2020 6:57:21 AM us Azeem Chavez MD IMG ECG ORDERABLES Final Result EXTERNAL EKG * Culture, Urine (02/06/2020 1:18 AM CDT) CULTURE RESULTS ENTEROCOCCUS 02/09/2020 8:01 AM CDT [facility] CULTURE RESULTS ENTEROCOCCUS 02/09/2020 8:01 AM CDT [facility] Comment:STRAIN 2 CULTURE RESULTS ALSO MIXED GROWTH OF DISTAL URETHRA CONTAMINANTS. 02/09/2020 8:01 AM CDT [facility] Urine URINE SPECIMEN / Unknown Non-Phlebotomy Collection / Unknown 02/06/2020 1:18 AM CDT 02/06/2020 1:30 AM CDT Narrative [facility] - 02/09/2020 8:01 AM CDT Susceptibility not [...] MICROBIOLOGY - GENERAL OR DERABLES Final Result [facility] [address] [place] [address], [place] * CT RENAL STONE STUDY (ABDOMEN [...] AM T: ??02/06/2020 1:04 AM Report ID: [id number] Reading Location: ??[id number] Procedure Note Ariel Canseco MD - 02/06/2020 [...] by Ariel Canseco BB: DEVIN Report ID: [id number] Reading Location: [id number] IMPRESSION: 1. 0.5 cm right distal ureter [...] - 144 mmol/L 02/06/2020 12:11 AM CDT [facility] POTASSIUM 3.5 3.5 - 5.1 mmol/L 02/06/2020 12:11 AM CDT [facility] CHLORIDE 104 100 - 110 mmol/L 02/06/2020 12:11 AM CDT [facility] CO2, VENOUS 27 22 - 32 mmol/L 02/06/2020 12:11 AM CDT [facility] ANION GAP 13.5 8.0 - 20.0 mmol/L 02/06/2020 12:11 AM [facility] GLUCOSE 137(H) 70 - 99 mg/dL 02/06/2020 12:11 AM [facility] BUN 24(H) 8 - 23 mg/dL 02/06/2020 12:11 AM [facility] CREATININE, BLOOD 1.24 0.80 - 1.30 mg/dL 02/06/2020 12:11 AM [facility] BUN/CREATININE RATIO 19 12 - 20 ratio 02/06/2020 12:11 AM [facility] TOTAL PROTEIN 6.6 6.0 - 8.3 g/dL 02/06/2020 12:11 AM [facility] ALBUMIN 4.2 3.5 - 5.2 g/dL 02/06/2020 12:11 AM [facility] Comment: The colormetric methods used for the determination of Albumin may lead to falsely elevated test results in patients suffering from renal failure or insufficiency due to interference with other proteins. A/G RATIO 1.8 1.0 - 2.0 02/06/2020 12:11 AM [facility] CALCIUM 9.4 8.9 - 10.3 mg/dL 02/06/2020 12:11 AM [facility] T BILI 0.4 <=1.2 mg/dL 02/06/2020 12:11 AM [facility] SGOT (AST) 14 <=40 U/L 02/06/2020 12:11 AM [facility] SGPT (ALT) 13 <=41 U/L 02/06/2020 12:11 AM [facility] ALKALINE PHOSPHATASE 65 40 - 130 U/L 02/06/2020 12:11 AM [facility] GFR, EST. NONAFRICAN 57(L) >=60 02/06/2020 12:11 AM [facility] GFR, EST. >60 >=60 020 12:11 AM [facility] Comment: Creatinine Clearance is the preferred criteria for selecting drug dose adjustments in renally impaired patients. ??The GFR is provided as additional pertinent clinical information. GFR is reported in mL/min/1.73 sq m. Blood Venous Catheter (IV) / Unknown 02/05/2020 11:15 PM CDT 02/05/2020 11:32 PM CDT us Azeem Chavez MD CHEMISTRY ORDERABLES Mariaa rosado Result [facility] [place] [address] documented in this encounter Visit Diagnoses Not [...] taking oral intake without complications and both PO/MI orders are active, administer through the oral route. acetaminophen (TYLENOL) tablet 650 mg 650 mg, Oral, EVERY 4 HOURS PRN, Starting on 02/06/20 at 0219, Until 02/08/20 at 1610, Mild pain or more severe pain if patient requests, Fever, If patient is taking oral intake without complications and both PO/MI orders are active, administer through the oral [...] 2) increasing dosage, or 3) changing to PHOTOGRAPHIC TECHNICIAN. Given 02/08/2020 9:51 AM CDT 2 Tablets [...] Tract Infection 0955 (Given - Provider: Roxanne Doip, GAY) cefTRIAXone (ROCEPHIN) injection 1 g (CANCELED) [...] Gavin RN) 0802 (Given - Provider: Elan Gvain RN) 0823 (Given - Provider: Roxanne Diop, [...] taking oral intake without complications and both PO/MI orders are active, administer through the oral [...] taking oral intake without complications and both PO/MI orders are active, administer through the oral [...] 2) increasing dosage, or 3) changing to PHOTOGRAPHIC TECHNICIAN. 0259 (Given - Provider: Ellen Fong RN)0749 [...] taking oral intake without complications and both PO/MI orders are active, administer through the oral route. Or acetaminophen (TYLENOL) suppository 650 mgJump to med 650 mg, Rectal, EVERY 4 HOURS PRN, Starting on 02/06/20 at 0219, Until 02/08/20 at 1610, Mild pain or more severe pain if patient requests, Fever, If patient is taking oral intake without complications and both PO/MI orders are active, administer through the oral [...] medications. documented in this encounter Care Teams Marketing Writer Relationship Specialty Start Date End Date Fawn Romeo PAC [address] [place] [address] PCP - General Physician Locker Room Supervisor 11/20/17 10/24/23 documented as of this encounter
--- OUTSIDE RECORDS SUMMARY | 2024-06-14 23:21 | XMS_ITS | Encounter Summary ---
Author Organization [employer] Care Team Providers Care Flatbed Owner Operator Name Role Phone Viraj Romeo Primary Care Provider [phone] Encounter Details Date Type Department Care Team [...] on filedocumented in this encounter Care Teams Flatbed Owner Operator Relationship Specialty Start Date End Date Viraj Romeo PAC [address] [place] [id number] PCP - General Physician Irrigation System Installer 11/20/17 10/24/23 documented as of this encounter
--- OUTSIDE RECORDS SUMMARY | 2024-06-14 23:21 | XMS_ITS | Encounter Summary ---
Author Organization [employer] Care Team Providers Care Instructional Design Specialist Name Role Phone Grey Tomas MD Primary Care Provider [phone] Encounter Details Date Type Department Care Team [...] documented as of this encounter Care Teams Instructional Design Specialist Relationship Specialty Start Date End Date Grey Tomas MD [address] [place] [id number] PCP - General Family Medicine 10/25/23 documented as of this encounter
--- OUTSIDE RECORDS SUMMARY | 2024-06-14 23:21 | XMS_ITS | Encounter Summary ---
Author Organization [facility] Address [address] [facility] [place] [address] Phone Care Team Providers Care Band Cutter Name Role Phone Viraj Romeo Primary Care Provider [phone] Reason for Referral * Radiology Services (Routine) - Closed Specialty Diagnoses / Procedures Referred By Alcira forrest Referred To Contact Radiology Diagnoses Ureterolithiasis Procedures US RENAL COMPLETE Elizabeth Alba MD Phone: tel: fax: Referral ID Status Reason Start Date Expiration Date Visits Re quested Visits Authorized [id number] Closed 02/06/2020 1 1 Reason for Visit * Radiology Services (Routine) - Closed Specialty Diagnoses / Procedures Referred By Alcira forrest Referred To Contact Radiology Diagnoses Ureterolithiasis Procedures US RENAL COMPLETE Elizabeth Alba MD Phone: tel: fax: Referral ID Status Reason Start Date Expiration Date Visits Re quested Visits Authorized [id number] Closed 02/06/2020 1 1 Encounter Details Date Type Department Care Team (Latest Contact Info) Description 02/12/2020 11:22 AM CDT - 02/12/2020 11:59 PM CDT Hospital Encounter [facility] Ultrasound [address] [place] [address] Elizabeth Alba MD [address] [facility] [address] [place] [address] Discharge Disposition: Discharged to home or Selfcare [...] PM T: ??02/12/2020 3:34 PM Report ID: [id number] Reading Location: ??[id number] Procedure Note Sulaiman Gar MD - 02/12/2020 [...] by Sulaiman Gar M.D. JR: Report ID: [id number] Reading Location: [id number] IMPRESSION: 1. Mild right pelviectasis. This is similar to the ultrasound from 02/16/2011, with improved hydronephrosis compared with CT dated 02/05/2020. 2. Moderate left hydronephrosis. Elizabeth Alba MD [facility] [place] ORDERABLES Final Res ult documented in this encounter Visit Diagnoses Diagnosis Right Ureterolithiasis with severe hydroureteronephrosis Calculus of ureter documented in this encounter Care Teams Band Cutter Relationship Specialty Start Date End Date Viraj Romeo, PAC [address] [place] [id number] PCP - General Physician Learning Support Services Director 11/20/17 10/24/23 documented as of this encounter
--- OUTSIDE RECORDS SUMMARY | 2024-06-14 23:21 | XMS_ITS | Encounter Summary ---
Author Organization [employer] Care Team Providers Care Credit Consultant Name Role Phone Viraj Romeo Primary Care Provider [phone] Encounter Details Date Type Department Care Team [...] on filedocumented in this encounter Care Teams Credit Consultant Relationship Specialty Start Date End Date Viraj Romeo PAC [address] [place] [id number] PCP - General Physician Client Relations Associate 11/20/17 10/24/23 documented as of this encounter
--- OUTSIDE RECORDS SUMMARY | 2024-06-14 23:21 | XMS_ITS | Encounter Summary ---
Author Organization [facility] Address [address] [place] [address] Phone Care Team Providers Care Patient Services Coordinator Name Role Phone Grey Tomas MD Primary Care Provider [phone] Reason for Visit * Reason Comments General Illness Encounter Details Date Type Department Care Team ([facility] st Contact Info) Description 10/25/2023 2:25 PM CDT - 10/25/2023 4:50 PM CDT Emergency [facility] Emergency [address] [place] [address] Grey Guerra, DO [address] [place] [address] Acute bronchitis Discharge Disposition: Discharged to home [...] travel. [facility]!!! [employer] !!! GO [facility]!!! documented in this encounter Medications at [...] of this encounter ED Notes * Mela Mayr RN - 10/25/2023 4:49 PM CDT Patient discharged. Discharge instructions and patient educational material reviewed with patient; questions and concerns addressed; patient verbalizes understanding, using teach back. Patient was given 1 prescription. Patient discharged per ambulatory mode with self as responsible libertarian. * Mela Mary RN - 10/25/2023 4:45 [...] RIGHT URETEROSCOPY; Surgeon: Elizabeth Alba MD; Location: [facility]; Service: Urology LARYNGOSCOPY 02/2019 PROSTATE SURGERY [...] Your Medications These medications were sent to [id number] - [place] [employer], [place] - [address] [facility] [address] [place] [phone] Hours: 24-hours levoFLOXacin 500 MG Tabs Medical [...] nose x3 days. Patient was seen at [facility] and had a chest xray and swabs [...] videos and all your education online visit, [email or web address] or scan this QR code with your [...] condition. Follow these instructions at home: Take qzvn-lfh-jdjwcbz and prescription medicines only as told by [...] and water are not available, use hand medicare contact specialist. Avoid contact with people who have cold [...] it is easier to cough up. Take jazm-tcs-cdfwlrb and prescription medicines only as told by [...] 2005 Document Updated: 2022-08-30 Document Reviewed: 2021-09-20 [employer] Patient Education ? 2023 [employer]. documented in this encounter Plan of Treatment [...] PM T: ??10/25/2023 4:02 PM Report ID: [id number] Reading Location: ??[id number] Procedure Note Lorena Steward MD - 10/25/2023 [...] Lorena Steward M.D. TW: TW Report ID: [id number] Reading Location: [id number] IMPRESSION: 1. Minimal basilar atelectasis, similar to prior study. No focal consolidation, effusion or pneumothorax us Grey Guerra DO IMG DIAGNOSTIC ORDERABL ES Final Result * RSV,SARS-COV-2,INFLUENZA A&B BY PCR (10/25/2023 1:15 PM CDT) FLU A Negative Negative, Error 10/25/2023 2:20 PM CDT [facility] FLU B Negative Negative 10/25/2023 2:20 PM CDT [facility] RESP SYNC VIRUS Negative Negative 2:20 PM CDT [facility] SARSCOV2 NOT DETECTED (Reference Range for this test is Not Detected) 10/25/2023 2:20 PM CDT [facility] Comment:This test was perfor med by a Reverse Dining Car Server PCR Method. Swab NASOPHARYNGEAL SWAB / Unknown Non-Phlebotomy Collection / Unknown 10/25/2023 1:15 PM CDT 10/25/2023 1:40 PM CDT Narrative [facility] - 10/25/2023 2:20 PM CDT This test has not been FDA cleared or approved; the test has been authorized by FDA under an Emergency Use Authorization (EUA) for use by laboratories certified under the CLIA that meet the requirements to perform moderate, high or waived complexity tests. Authorized Fact Sheets about this test for providers and patients are available at: https://www.fda.gov/medical-devices/oejncbvuo-yjgmlwjpre-qagbajp-devices/emergen -us e-authorizations us Malia Maki Page PAC MICROBIOLOGY - GENERAL ORDER DIEGO Final Result [facility] [address] [place] [address] documented in this encounter Visit Diagnoses Diagnosis [...] RN) documented in this encounter Care Teams Patient Services Coordinator Relationship Specialty Start Date End Date Grey Tomas MD [address] [place] [id number] PCP - General Family Medicine 10/25/23 documented as of this encounter
--- OUTSIDE RECORDS SUMMARY | 2024-06-14 23:21 | XMS_ITS | Encounter Summary ---
Author Organization [facility] Address [address] [place] [address] Phone Care Team Providers Care Sales Representative Groceries Name Role Phone Fawn Romeo Primary Care Provider [phone] Reason for Referral * Radiology Services (Routine) - Closed Specialty Diagnoses / Procedures Referred By Alcira forrest Referred To Contact Radiology Diagnoses Ureterolithiasis Procedures US RENAL COMPLETE Elizabeth Alba MD Phone: tel: fax: Referral ID Status Reason Start Date Expiration Date Visits Re quested Visits Authorized [id number] Closed 02/06/2020 1 1 Reason for Visit * Reason Comments Flank Pain * Auth/Cert Specialty Diagnoses / Procedures Referred By Alcira t Referred To Contact Diagnoses Ureterolithiasis Right Ureterolithiasis with severe hydroureteronephrosis Referral ID Status Reason Start Date Expiration Date Visits Re quested Visits Authorized [id number] 1 1 Encounter Details Date Type Department Care Team (Latest Contact Info) Description 02/05/2020 11:15 PM CDT - 02/08/2020 2:10 PM CDT Hospital Encounter [facility] [address] [place] [phone] Azeem Chavez MD [address] [place] [address] Esa Castaneda MD [address] [place] [address] Nita Jerez, POWER NUT RUNNER OPERATOR, AML ANALYST [address] [place] [address] Urinary tract obstruction by kidney stone Discharge [...] MD - 02/08/2020 10:52 AM CDT [facility] SUMMARY Name: Samuel Sanchez Age: 74 y.o. : 1945 Attending Physician: Esa Castaneda MD Admission Date/Time: 02/05/2020 Expected Discharge Date: Primary Care Physician: OMAR VIGIL Discharging Provider: Esa Castaneda MD INSTRUCTIONS FOR PHYSICIANS ON FOLLOW UP AFTER DISCHARGE: Follow-up Information Follow up With Specialties Details Why Contact Info Fawn Romeo PAC Physician Chief Petroleum Engineer Follow up in 1 week(s) [address] [facility] [address] Elizabeth Alba MD Urology Follow up in 2 week(s) with renal US #2 [facility] [address] Discharge Instructions: Discharge Condition: improved Disposition: Home [...] GERD, history of migraines, who presented to [facility] with complaints of right flank pain that [...] found for: HGBA1C No results found for: PALOIAEI36 No results found for: CPK, CPKI, CKMB, CKMBNI, CKMBPOCT, CKMBRELINDX, TROPONINI, POCTRP No results found for: FERRITIN No components found for: FOLATE No results found for: PHARTERIAL, PO2ART, RMQ2PCN, CO2ART, O2ART No results found for: LACACIDPOCT, [...] Your Medications These medications were sent to [id number] - [facility] [address] [place] [id number] Hours: 24-hours ?? HYDROcodone-acetaminophen 5-325 MG Tabs [...] Thank you very much for allowing the [facility] Adult Hospitalist Service to participate in the care of this patient. If you have any questions, please don't hesitate to call. Signed: Esa Castaneda MD, 02/08/2020, 10:52 AM CDT documented in this encounter Discharge Instructions * Attachments The following attachments cannot be sent through Care Everywhere. * Angioplasty and Stenting, Renal (Estonian) * Amoxicillin; Clavulanic Acid tablets (Estonian) * Acetaminophen; Hydrocodone tablets or capsules (Estonian) * Levofloxacin tablets (Estonian) * Phenazopyridine tablets (Estonian) documented in this encounter Medications at [...] MD - 02/07/2020 1:35 PM CDT [facility] DA[facility] PROGRESS NOTE Anticipated Date of [...] Results: No results found for: PHARTERIAL, PO2ART, MBH6SWO, CO2ART, O2ART Lab Results Component Value Date [...] for: LACACIDPOCT, LACTICA No results found for: [id number] No results found for: FERRITIN Lab Results Component Value Date GLUCOSEPOCT 89 02/06/2020 EKG: Ekg 12 Lead Result Date: 02/07/2020 Sinus rhythm with borderline 1st degree A-V block Comparison Summary: No serial comparison made Summary: Borderline [place] [id number] on 02/07/2020 6:57:21 AM Imaging: No results [...] MD - 02/07/2020 9:36 AM CDT [facility] PROGRESS NOTE Anticipated Date of [...] Results: No results found for: PHARTERIAL, PO2ART, YZB4QPD, CO2ART, O2ART Lab Results Component Value Date [...] for: LACACIDPOCT, LACTICA No results found for: [id number] No results found for: FERRITIN Lab Results Component Value Date GLUCOSEPOCT 89 02/06/2020 EKG: Ekg 12 Lead Result Date: 02/07/2020 Sinus rhythm with borderline 1st degree A-V block Comparison Summary: No serial comparison made Summary: Borderline [place] [id number] on 02/07/2020 6:57:21 AM Imaging: Xr Surgical Exam Result Date: 02/06/2020 IMPRESSION: 1. Intraoperative fluoroscopic images showing a dilated right ureter with subsequent placement of a right ureteral stent. Please see operative report for further details. By: Esa Castaneda MD, 02/07/2020 9:36 AM CDT * Esa Castaneda MD - 02/06/2020 5:00 PM CDT [facility] PROGRESS NOTE Anticipated Date of [...] Results: No results found for: PHARTERIAL, PO2ART, UEQ9FTR, CO2ART, O2ART Lab Results Component Value Date [...] for: LACACIDPOCT, LACTICA No results found for: XPSTANVN20 No results found for: FERRITIN Lab Results [...] this encounter H&P Notes * Nita Jerez, VALVE TECHNICIAN, AML ANALYST - 02/06/2020 1:45 AM CDT [facility] ADMISS[facility] HISTORY & PHYSICAL HPI: Samuel Sanchez is a 74 y.o. 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 Patient [...] 02/05/2020 No results found for: PHARTERIAL, PO2ART, FWF2XXB, CO2ART, O2ART No results found for: CPK, [...] of this patient By: Nita Jerez APN, AML ANALYST, 02/06/2020, 1:45 AM CDT Primary Care Physician: [...] and stent placement Surgeon(s): Elizabeth Alba MD JEWELRY ESTIMATOR: Nikki Sr APN, CRNA Estimated Blood Loss: [...] by Ariel Canseco BB: DEVIN Report ID: [id number] Reading Location: [address] Number of Diagnoses or Management Options [...] Castaneda. Patient be placed in observation. * Setven Underwood RN - 02/05/2020 11:20 PM CDT Pt to ed room 9 with c/o right flank pain. States hx of kidney stones with this being number 8. States nausea without emesis. Denies any other sx. documented in this encounter Miscellaneous Notes * Anesthesia Post-op Eval - Nikki Sr APN, CRNA - 02/08/2020 2:10 PM CDT [facility] Anesthesia Assessment: Date of Procedure: 02/06/2020 [...] cytoscopy. Call light within reach. Patient educated national sales director light. Taken 02/06/2020 0821 by Elan Gavin [...] (see interventions/notes) * Anesthesia Pre-op Eval - iNkki Sr APN, CRNA - 02/06/2020 12:18 PM [...] is calm and cooperative. IV fluids infusing. Tivoli was given for pain. Will reassess pain [...] No alarms present. Pt. Oriented and education national sales director light use. documented in this encounter Plan [...] PM T: ??02/12/2020 3:34 PM Report ID: [id number] Reading Location: ??[id number] Procedure Note Sulaiman Gar MD - 02/12/2020 [...] by Sulaiman Gar M.D. JR: Report ID: [id number] Reading Location: [place] [address] IMPRESSION: 1. Mild right pelviectasis. This is similar to the ultrasound from 02/16/2011, with improved hydronephrosis compared with CT dated 02/05/2020. 2. Moderate left hydronephrosis. Elizabeth Alba MD [facility] ORDERABLES Final Res ult * (ABNORMAL) URINALYSIS REFLEX IF INDICATED BY ABNORMAL RESULTS (02/06/2020 5:52 PM CDT) Only the most recent of2 resultswithin the time period is included. SPECIFIC GRAVITY 1.010 1.003 - 1.030 02/06/2020 6:23 PM CDT [facility] URINE PH 6.0 5.0 - 9.0 02/06/2020 6:23 PM CDT [facility] WBC ESTERASE 100 /uL(A) Negative 02/06/2020 6:23 PM CDT [facility] NITRITE Positive(A) Negative 02/06/2020 6:23 PM CDT [facility] PROTEIN, RANDOM URINE 100 mg/dL(A) Negative 02/06/2020 6:23 PM CDT [facility] URINE GLUCOSE, QUAL Negative Negative 02/06/2020 6:23 PM CDT [facility] URINE KETONES Negative Negative 02/06/2020 6:23 PM CDT [facility] UROBILINOGEN Normal Normal mg/dL 02/06/2020 6:23 PM CDT [facility] URINE BILIRUBIN Negative Negative 0 6:23 PM CDT [facility] URINE BLOOD 250 /uL(A) Negative vinod/ul 02/06/2020 6:23 PM CDT [facility] URINALYSIS COLOR Red Brown 02/06/2020 6:23 PM CDT [facility] URINALYSIS CLARITY Very Cloudy 02/06/2020 6:23 PM CDT [facility] WBC (Urine) 11-20(A) Negative, 0-5 /hpf 02/06/2020 6:23 PM CDT [facility] URINE RBC'S 51-150(A) Negative, 0-2 /hpf 02/06/2020 6:23 PM CDT [facility] EPITHELIAL CELLS Occasional /lpf 02/06/2020 6:23 PM CDT [facility] BACTERIA, URINE Many(A) Negative /hpf 02/06/2020 6:23 PM CDT [facility] Urine URINE SPECIMEN / Unknown Non-Phlebotomy Collection / Unknown 02/06/2020 5:52 PM CDT 02/06/2020 6:00 PM CDT Esa Castaneda MD URINE ORDERABLES Final R esult [facility] [address] [place] [address] * Culture, Blood (02/06/2020 5:32 PM CDT) Only the most recent of2 resultswithin the time period is included. CULTURE RESULTS NO GROWTH WITHIN 5 DAYS, FINAL RESULT 02/11/2020 6:00 PM CDT [facility] Culture BLOOD SPECIMEN / Unknown Venipuncture / Unknown 02/06/2020 5:32 PM CDT 02/06/2020 5:34 PM CDT Esa Castaneda MD MICROBIOLOGY - GENERAL O RDERABLES Final Result [facility] [address] [place] [address], [place] * POCT Glucose (02/06/2020 3:06 PM CDT) GLUCOSE,BEDSIDE POCT 89 70 - 99 mg/dL 02/06/2020 3:13 PM CDT [facility] Blood 02/06/2020 3:06 PM CDT 02/06/2020 3:13 PM CDT us Esa Castaneda MD POINT OF CARE TESTING Fi nal Result [facility] [address] [facility] [place] [address] * XR SURGICAL EXAM (02/06/2020 12:55 PM [...] PM T: ??02/06/2020 2:57 PM Report ID: [id number] Reading Location: ??[id number] Procedure Note Jose Marrero MD - 02/06/2020 [...] Jose Marrero M.D. LB: VANIA Report ID: [id number] Reading Location: [place] [address] IMPRESSION: 1. Intraoperative fluoroscopic images showing a dilated right ureter with subsequent placement of a right ureteral stent. Please see operative report for further details. Elizabeth Alba MD [facility] DIAGNOSTIC ORDERABLES F inal Result * Pathology Surgical (02/06/2020 12:29 PM CDT) Case Report Surgical Pathology Report ? Case: [id number] ? Authorizing Provider: ??Elizabeth Alba MD ? Collected: ? 02/06/2020 12:29 PM ? Ordering Location: ? [facility] ? Received: ?02/09/2020 09:03 AM ? [facility] ? Main OR ? Pathologist: ? Tila Manzanares, ? MD ? Specimen: ?Stone, RIGHT URETERAL STONE ? 02/09/2020 1:48 PM CDT [facility] FINAL DIAGNOSIS Calculus, Right Ureteral, Removal: - Nephrolithiasis (gross examination only). 02/09/2020 1:48 PM CDT [facility] Pre-Operative Diagnosis UNKNOWN 02/09/2020 1:48 PM CDT [facility] Gross Description A. RIGHT URETERAL [...] crystallographic examination. KS/marc 02/09/2020 1:48 PM CDT [facility] Tissue STONE - BODY MATERIAL / Unknown 02/06/2020 12:29 PM CDT 02/09/2020 9:03 AM CDT Elizabeth Alba MD PATHOLOGY/CYTOLOGY ORDERABL ES Final Result [facility] [address] [place] [address] * (ABNORMAL) CBC with Auto Differential (02/06/2020 4:03 AM CDT) Only the most recent of2 resultswithin the time period is included. WBC 8.06 4.00 - 12.00 10(3)/mcL 02/06/2020 5:36 AM CDT [facility] RBC 4.56 4.40 - 5.80 10(6)/mcL 02/06/2020 5:36 AM CDT [facility] HEMOGLOBIN (HGB) 14.5 13.0 - 16.5 g/dL 02/06/2020 5:36 AM CDT [facility] HEMATOCRIT (HCT) 44.3 38.0 - 50.0 % 02/06/2020 5:36 AM CDT [facility] MCV 97.1(H) 82.0 - 96.0 fL 02/06/2020 5:36 AM CDT [facility] MCH 31.8 26.0 - 32.0 pg 02/06/2020 5:36 AM CDT [facility] MCHC 32.7 31.0 - 36.0 g/dL 02/06/2020 5:36 AM CDT [facility] PLATELET COUNT 145 140 - 440 10(3)/mcL 02/06/2020 5:36 AM CDT [facility] RDW 13.1 11.8 - 15.5 % 02/06/2020 5:36 AM CDT [facility] MPV 11.3 8.0 - 12.6 fL 02/06/2020 5:36 AM CDT [facility] NEUTROPHILS 70.8(H) 40.0 - 68.0 % 02/06/2020 5:36 AM CDT [facility] LYMPHOCYTES 15.3(L) 19.0 - 49.0 % 02/06/2020 5:36 AM CDT [facility] MONOCYTES 9.2 3.0 - 13.0 % 02/06/2020 5:36 AM CDT [facility] EOSINOPHILS 4.2 0.0 - 8.0 % 02/06/2020 5:36 AM CDT [facility] BASOPHILS 0.5 0.0 - 1.0 % 02/06/2020 5:36 AM CDT [facility] ABSOLUTE NEUTROPHILS 5.71(H) 1.40 - 5.30 10(3)/[facility] 02/06/2020 5:36 AM CDT [facility] ABSOLUTE LYMPHOCYTES 1.23 0.90 - 3.30 10(3)/[facility] 02/06/2020 5:36 AM CDT [facility] ABSOLUTE MONOCYTES 0.74 0.10 - 0.90 10(3)/[facility] 02/06/2020 5:36 AM CDT [facility] ABSOLUTE EOSINOPHIL 0.34 0.00 - 0.50 10(3)/[facility] 02/06/2020 5:36 AM CDT [facility] ABSOLUTE BASOPHILS 0.04 0.00 - 0.10 10(3)/[facility] 02/06/2020 5:36 AM CDT [facility] NRBC PER 100 WBC 0 02/06/20 20 5:36 AM CDT [facility] Blood Venipuncture / Unknown 02/06/2020 4:03 AM CDT 02/06/2020 5:28 AM CDT us Nita Jerez POWER NUT RUNNER OPERATOR, AML ANALYST HEMATOLOGY ORDERABLES F inal Result [facility] [address] [place] [address] * (ABNORMAL) BMP with Ca, Total (02/06/2020 4:03 AM CDT) SODIUM 141 136 - 144 mmol/L 02/06/2020 5:59 AM CDT [facility] POTASSIUM 3.9 3.5 - 5.1 mmol/L 02/06/2020 5:59 AM CDT [facility] CHLORIDE 105 100 - 110 mmol/L 02/06/2020 5:59 AM CDT [facility] CO2, VENOUS 26 22 - 32 mmol/L 02/06/2020 5:59 AM CDT [facility] ANION GAP 13.9 8.0 - 20.0 mmol/L 02/06/2020 5:59 AM CDT [facility] GLUCOSE 73 70 - 99 mg/dL 02/06/2020 5:59 AM CDT [facility] BUN 25(H) 8 - 23 mg/dL 02/06/2020 5:59 AM CDT [facility] CREATININE, BLOOD 1.13 0.80 - 1.30 mg/dL 02/06/2020 5:59 AM CDT [facility] BUN/CREATININE RATIO 22(H) 12 - 20 ratio 02/06/2020 5:59 AM CDT [facility] CALCIUM 9.0 8.9 - 10.3 mg/dL 02/06/2020 5:59 AM CDT [facility] GFR, EST. NONAFRICAN >60 >=60 02/06/2020 5:59 AM CDT [facility] GFR, EST. >60 >=60 02/06/2020 5:59 AM CDT [facility] Comment: Creatinine Clearance is the preferred criteria for selecting drug dose adjustments in renally impaired patients. ??The GFR is provided as additional pertinent clinical information. GFR is reported in mL/min/1.73 sq m. Blood Venipuncture / Unknown 02/06/2020 4:03 AM CDT 02/06/2020 5:28 AM CDT us Nita Jerez APRN, AML ANALYST CHEMISTRY ORDERABLES Fi nal Result [facility] [address] [place] [address] * Pre-Procedural COVID-19 PCR Screening (02/06/2020 3:57 AM CDT) SARSCOV2 NOT DETECTED (Reference Range for this test is Not Detected) 02/07/2020 7:08 AM CDT [facility] Swab NASOPHARYNGEAL STRUCTURE / Unknown Non-Phlebotomy Collection / Unknown 02/06/2020 3:57 AM CDT 02/06/2020 4:07 AM CDT Narrative [facility] - 02/07/2020 7:08 AM CDT Authorized Fact Sheets about this test for providers and patients are available at: https://www.fda.gov/medical-devices/wuktakqnc-iqwklgqjwe-tbubuzl-devices/emergen -us e-authorizations us Nita Jerez APRN, AML ANALYST MICROBIOLOGY - GENERAL ORDERABLES Final Result [facility] [address] [place] [address], * EKG 12 LEAD (02/06/2020 1:31 AM CDT) Ventricular Rate BPM EXTERNAL EKG Atrial Rate BPM EXTERNAL EKG P-R Interval 204 ms EXTERNAL EKG QRS Duration 80 ms EXTERNAL EKG Q-T Duration 444 ms EXTERNAL EKG QTC CALCULATION 425 ms EXTERNAL EKG P [place] 18 degrees EXTERNAL EKG R [place] -2 degrees EXTERNAL EKG T [place] 51 degrees EXTERNAL EKG 02/06/2020 1:31 AM CDT Impressions EXTERNAL EKG - 02/07/2020 6:57 AM CDT Sinus rhythm with borderline 1st degree A-V block Comparison Summary: No serial comparison made Summary: Borderline ECG [place] [id number] on 02/07/2020 6:57:21 AM Narrative Procedure Note Ezequiel Feliz, DO - 02/07/2020 IMPRESSION: Sinus rhythm with borderline 1st degree A-V block Comparison Summary: No serial comparison made Summary: Borderline [place] [id number] on 02/07/2020 6:57:21 AM Azeem Chavez MD IMG ECG ORDERABLES Final Result Performing Organization Address [facility] Co de Phone Number EXTERNAL EKG * Culture, Urine (02/06/2020 1:18 AM CDT) CULTURE RESULTS ENTEROCOCCUS 02/09/2020 8:01 AM CDT [facility] CULTURE RESULTS ENTEROCOCCUS 02/09/2020 8:01 AM CDT [facility] Comment:STRAIN 2 CULTURE RESULTS ALSO MIXED GROWTH OF DISTAL URETHRA CONTAMINANTS. 02/09/2020 8:01 AM CDT [facility] Urine URINE SPECIMEN / Unknown Non-Phlebotomy Collection / Unknown 02/06/2020 1:18 AM CDT 02/06/2020 1:30 AM CDT Narrative [facility] - 02/09/2020 8:01 AM CDT Susceptibility not [...] OR DERABLES Final Result Performing Organization Address [facility] Co de Phone Number [facility] [address] [place] [address], [place] * CT RENAL STONE STUDY (ABDOMEN [...] AM T: ??02/06/2020 1:04 AM Report ID: [id number] Reading Location: ??[id number] Procedure Note Ariel Canseco MD - 02/06/2020 [...] by Ariel Canseco BB: DEVIN Report ID: [id number] Reading Location: [place] [address] IMPRESSION: 1. 0.5 cm right distal ureter [...] 144 mmol/L 02/06/2020 12:11 AM CDT [facility] POTASSIUM 3.5 3.5 - 5.1 mmol/L 02/06/2020 12:11 AM [facility] CHLORIDE 104 100 - 110 mmol/L 02/06/2020 12:11 AM [facility] CO2, VENOUS 27 22 - 32 mmol/L 02/06/2020 12:11 AM [facility] ANION GAP 13.5 8.0 - 20.0 mmol/L 02/06/2020 12:11 AM [facility] GLUCOSE 137(H) 70 - 99 mg/dL 02/06/2020 12:11 AM [facility] BUN 24(H) 8 - 23 mg/dL 02/06/2020 12:11 AM [facility] CREATININE, BLOOD 1.24 0.80 - 1.30 mg/dL 02/06/2020 12:11 AM [facility] BUN/CREATININE RATIO 19 12 - 20 ratio 02/06/2020 12:11 AM [facility] TOTAL PROTEIN 6.6 6.0 - 8.3 g/dL 02/06/2020 12:11 AM [facility] ALBUMIN 4.2 3.5 - 5.2 g/dL 02/06/2020 12:11 AM [facility] Comment: The colormetric methods used for the determination of Albumin may lead to falsely elevated test results in patients suffering from renal failure or insufficiency due to interference with other proteins. A/G RATIO 1.8 1.0 - 2.0 02/06/2020 12:11 AM [facility] CALCIUM 9.4 8.9 - 10.3 mg/dL 02/06/2020 12:11 AM [facility] T BILI 0.4 <=1.2 mg/dL 02/06/2020 12:11 AM [facility] SGOT (AST) 14 <=40 U/L 02/06/2020 12:11 AM [facility] SGPT (ALT) 13 <=41 U/L 02/06/2020 12:11 AM [facility] ALKALINE PHOSPHATASE 65 40 - 130 U/L 02/06/2020 12:11 AM CDT [facility] GFR, EST. NONAFRICAN 57(L) >=60 02/06/2020 12:11 AM CDT [facility] GFR, EST. >60 >=60 020 12:11 AM CDT [facility] Comment: Creatinine Clearance is the preferred criteria for selecting drug dose adjustments in renally impaired patients. ??The GFR is provided as additional pertinent clinical information. GFR is reported in mL/min/1.73 sq m. Blood Venous Catheter (IV) / Unknown 02/05/2020 11:15 PM CDT 02/05/2020 11:32 PM CDT us Azeem Chavez MD CHEMISTRY ORDERABLES Mariaa alonzo Result [facility] [address] [place] [address] documented in this encounter Visit Diagnoses Diagnosis [...] taking oral intake without complications and both PO/MN orders are active, administer through the oral route. acetaminophen (TYLENOL) tablet 650 mg 650 mg, Oral, EVERY 4 HOURS PRN, Starting on 02/06/20 at 0219, Until Sat02/08/20 at 1610, Mild pain or more severe pain if patient requests, Fever, If patient is taking oral intake without complications and both PO/MN orders are active, administer through the oral [...] 2) increasing dosage, or 3) changing to DIRECTOR VACCINE. Given 02/08/2020 9:51 AM CDT 2 Tablets [...] at 0030 0016 (Given - Provider: Caryn Montano RN) levoFLOXacin (LEVAQUIN) IV 750 mg (COMPLETED) [...] Gavin RN)1745 (New Bag - Provider: Elan Gvain RN) 0425 (New Bag - Provider: Sara [...] taking oral intake without complications and both PO/MN orders are active, administer through the oral [...] taking oral intake without complications and both PO/MN orders are active, administer through the oral [...] 2) increasing dosage, or 3) changing to DIRECTOR VACCINE. 0259 (Given - Provider: Ellen Fong RN)0749 [...] Elan Gavin RN) 0432 (Given - Provider: Sraa Longoria, GAY) morphine preservative free injection 2 [...] taking oral intake without complications and both PO/MN orders are active, administer through the oral route. Or acetaminophen (TYLENOL) suppository 650 mgJump to med 650 mg, Rectal, EVERY 4 HOURS PRN, Starting on 02/06/20 at 0219, Until Sat02/08/20 at 1610, Mild pain or more severe pain if patient requests, Fever, If patient is taking oral intake without complications and both PO/MN orders are active, administer through the oral [...] medications. documented in this encounter Care Teams Sales Representative Groceries Relationship Specialty Start Date End Date Fawn Romeo, [facility] [address] [place] [address] PCP - General Physician Chief Petroleum Engineer 11/20/17 10/24/23 documented as of this encounter
--- OUTSIDE RECORDS SUMMARY | 2024-06-14 23:21 | XMS_ITS | Clinical Summary ---
Author Organization [facility] Address [address] [place] [address] Phone Care Team Providers Care Outside Plant Technician Name Role Phone Gery Tomas MD Primary Care Provider [phone] Allergies No known active allergies Medications methotrexate [...] this topic Medical Devices Implanted Type Area Resort Keeper Device Identifier Shelf Expiration Date Model / Serial / Lot Stent Ureteral 6fr 2.1fr 26cm 2 Pigtail Curve 2 Durometer Taper Tip Loprfl Graduated LeaderNationis Ultra - [id number] Implanted:Qty : 1 on 02/06/2020 by Elizabeth Alba MD at [facility] IMPLANT Right: Ureter Fision 07/16/2022 [id number] / [id number] / [id number] [facility] Subscriber Plan / Payer (Ef fective 2022-Present) Name:Samuel Sanchez Relation to Subscriber:Self Name:Samuel Sanchez Payer ID:[id number] (NAIC) Type:Not on file Address: [facility] [address] [place] [id number] Advance Directives * Full Code (Latest Code Status on File) Date Activated Date Inactivated Comments 02/06/2020 2:19 AM 02/08/2020 4:15 PM CPR-Full Treat ment: FULL ARREST: Attempt Resuscitation/CPR wit intubation and mechanical ventilation. PRE-ARREST: Use entire range of life support measures to stabilize the patient. Care Teams Outside Plant Technician Relationship Specialty Start Date End Date Grey Tomas MD [address] [place] [id number] PCP - General Family Medicine 10/25/23
--- OUTSIDE RECORDS SUMMARY | 2024-06-14 23:21 | XMS_ITS | Encounter Summary ---
Author Organization [facility] Address [address] [facility] [place] [address] Phone Care Team Providers Care Unitizer Name Role Phone Viraj Romeo Primary Care Provider [phone] Reason for Visit * Reason Comments Abdominal Pain Encounter Details Date Type Department Care Team (Late st Contact Info) Description 11/29/2020 5:52 PM CDT - 11/29/2020 8:57 PM CDT Emergency [facility] Emergency [address] [place] [address] Juan R Courtney MD [address] [place] [address] Renal colic Discharge Disposition: Discharged to [...] Patient discharged per ambulatory mode as responsible green party. SL D/C'ed with Simon cath intact. * [...] RIGHT URETEROSCOPY; Surgeon: Elizabeth Alba MD; Location: [facility]; Service: Urology ??? LARYNGOSCOPY 02/2019 ??? PROSTATE [...] created for panel order CBC with Diff [id number]. Procedure Abnormality Status --------- ------ CBC with Auto Differential[[id number]] Abnormal Final result Please view results for these tests on the individual orders. EXTRA TUBES Narrative: The following orders were created for panel order Extra Tubes. Procedure Abnormality Status --------- ------ Gold Top Tube[[id number]] Final result Lavender Top Tube[[id number]] Final result Please view results for these [...] lesions may be cysts. CBC with Diff [id number] Final Result CMP (Comprehensive Metabolic Panel) Final Result Lipase [id number] Final Result Lactic Acid (Lactate) Final Result [...] by See Snider M.D. CH: Report ID: [id number] Reading Location: [address] Number of Diagnoses or Management Options [...] ENTEROCOCCUS FAECALIS 12/02/2020 9:05 AM CDT [facility] Urine URINE SPECIMEN COLLECTION, CLEAN CATCH / Unknown Non-Phlebotomy Collection / Unknown 11/29/2020 7:30 PM CDT 11/29/2020 7:42 PM CDT Narrative [facility] - 12/02/2020 9:05 AM CDT Susceptibility not [...] MICROBIOLOGY - GENERAL ORD ERABLES Final Result [facility] [address] [place] [address], * (ABNORMAL) URINALYSIS REFLEX IF INDICATED BY ABNORMAL RESULTS (11/29/2020 7:30 PM CDT) SPECIFIC GRAVITY 1.020 1.003 - 1.030 11/29/2020 7:57 PM CDT [facility] URINE PH 5.0 5.0 - 9.0 11/29/2020 7:57 PM CDT [facility] WBC ESTERASE 25 /uL(A) Negative 11/29/2020 7:57 PM CDT [facility] NITRITE Negative Negative 11/29/2020 7:57 PM CDT [facility] PROTEIN, RANDOM URINE Negative Negative 11/29/2020 7:57 PM CDT [facility] URINE GLUCOSE, QUAL Negative Negative 11/29/2020 7:57 PM CDT [facility] URINE KETONES Negative Negative 11/29/2020 7:57 PM CDT [facility] UROBILINOGEN Normal Normal mg/dL 11/29/2020 7:57 PM CDT [facility] URINE BILIRUBIN Negative Negative 7:57 PM CDT [facility] URINE BLOOD Negative Negative vinod/ul 11/29/2020 7:57 PM CDT [facility] URINALYSIS COLOR Yellow 11/29/2020 7:57 PM CDT [facility] URINALYSIS CLARITY Slightly Cloudy 11/29/2020 7:57 PM CDT [facility] WBC (Urine) 6-10(A) Negative, 0-5 /hpf 11/29/2020 7:57 PM CDT [facility] URINE RBC'S Negative Negative, 0-2 /hpf 11/29/2020 7:57 PM CDT [facility] EPITHELIAL CELLS Occasional /lpf 11/29/2020 7:57 PM CDT [facility] BACTERIA, URINE Few(A) Negative /hpf 11/29/2020 7:57 PM CDT [facility] Urine URINE SPECIMEN COLLECTION, CLEAN CATCH / Unknown Non-Phlebotomy Collection / Unknown 11/29/2020 7:30 PM CDT 11/29/2020 7:42 PM CDT us Juan R Courtney MD URINE ORDERABLES Final Res ult [facility] [address] [place] [address] * CT ABDOMEN PELVIS W/ CONTRAST (11/29/2020 [...] PM T: ??11/29/2020 7:55 PM Report ID: [id number] Reading Location: ??[id number] Procedure Note See Snider Jr., MD - [...] See Snider M.D. CH: GAMAL Report ID: [id number] Reading Location: [id number] IMPRESSION: 1. Mild left hydronephrosis and hydroureter [...] - 1.3 mg/dL 11/29/2020 6:57 PM CDT [facility] Blood 11/29/2020 6:56 PM CDT 11/29/2020 6:57 PM CDT None Provider POINT OF CARE TESTING Final Resu lt Performing Organization Address [facility] Co de Phone Number [facility] [address] [place] [address] * Lavender Top Tube (11/29/2020 6:35 PM CDT) Blood No Phlebotomy Charged / Unknown 11/29/2020 6:35 PM CDT 11/29/2020 6:57 PM CDT Juan R Courtney MD HEMATOLOGY ORDERABLES Mariaa l Result Performing Organization Address [facility] Co de Phone Number [facility] [address] [place] [address] * Gold Top Tube (11/29/2020 6:35 PM CDT) Blood No Phlebotomy Charged / Unknown 11/29/2020 6:35 PM CDT 11/29/2020 6:57 PM CDT us Juan R Courtney MD CHEMISTRY ORDERABLES Final Result Performing Organization Address [facility] Co de Phone Number [facility] [address] [place] [address] * (ABNORMAL) CBC with Auto Differential (11/29/2020 6:35 PM CDT) [facility] WBC 5.94 4.00 - 12.00 10(3)/mcL 11/29/2020 7:23 PM CDT [facility] RBC 4.52 4.40 - 5.80 10(6)/mcL 11/29/2020 7:23 PM CDT [facility] HEMOGLOBIN (HGB) 14.4 13.0 - 16.5 g/dL 11/29/2020 7:23 PM CDT [facility] HEMATOCRIT (HCT) 42.5 38.0 - 50.0 % 11/29/2020 7:23 PM CDT [facility] MCV 94.0 82.0 - 96.0 fL 11/29/2020 7:23 PM CDT [facility] MCH 31.9 26.0 - 32.0 pg 11/29/2020 7:23 PM CDT [facility] MCHC 33.9 31.0 - 36.0 g/dL 11/29/2020 7:23 PM CDT [facility] PLATELET COUNT 137(L) 140 - 440 10(3)/mcL 11/29/2020 7:23 PM CDT [facility] RDW 13.0 11.8 - 15.5 % 11/29/2020 7:23 PM CDT [facility] MPV 11.0 8.0 - 12.6 fL 11/29/2020 7:23 PM CDT [facility] NEUTROPHILS 64.0 40.0 - 68.0 % 11/29/2020 7:23 PM CDT [facility] LYMPHOCYTES 21.2 19.0 - 49.0 % 11/29/2020 7:23 PM CDT [facility] MONOCYTES 7.9 3.0 - 13.0 % 11/29/2020 7:23 PM CDT [facility] EOSINOPHILS 6.2 0.0 - 8.0 % 11/29/2020 7:23 PM CDT [facility] BASOPHILS 0.7 0.0 - 1.0 % 11/29/2020 7:23 PM CDT [facility] ABSOLUTE NEUTROPHILS 3.80 1.40 - 5.30 10(3)/mcL 11/29/2020 7:23 PM CDT [facility] ABSOLUTE LYMPHOCYTES 1.26 0.90 - 3.30 10(3)/mcL 11/29/2020 7:23 PM CDT [facility] ABSOLUTE MONOCYTES 0.47 0.10 - 0.90 10(3)/mcL 11/29/2020 7:23 PM CDT [facility] ABSOLUTE EOSINOPHIL 0.37 0.00 - 0.50 10(3)/mcL 11/29/2020 7:23 PM CDT [facility] ABSOLUTE BASOPHILS 0.04 0.00 - 0.10 10(3)/mcL 11/29/2020 7:23 PM CDT [facility] NRBC PER 100 WBC 0 11/30/19 7:23 PM CDT [facility] RESULTS ARE CONSISTENT WITH PERIPHERAL SMEAR REVIEW Yes 11/29/2020 7:23 PM CDT [facility] Blood Venipuncture / Unknown 11/29/2020 6:35 PM CDT 11/29/2020 6:56 PM CDT Juan R Courtney MD HEMATOLOGY ORDERABLES Mariaa l Result [facility] [address] [place] [address] * Lactic Acid (Lactate) (11/29/2020 6:35 PM CDT) LACTIC ACID 1.4 0.5 - 2.0 mmol/L 11/29/2020 7:15 PM CDT [facility] Blood Venipuncture / Unknown 11/29/2020 6:35 PM CDT 11/29/2020 6:56 PM CDT Juan R Courtney MD CHEMISTRY ORDERABLES Final Result [facility] [address] [place] [address] * Lipase [id number] (11/29/2020 6:35 PM CDT) LIPASE 46.1 13 - 60 U/L 11/29/2020 7:21 PM CDT [facility] Blood Venipuncture / Unknown 11/29/2020 6:35 PM CDT 11/29/2020 6:56 PM CDT us Juan R Courtney MD CHEMISTRY ORDERABLES Final Result [facility] [address] [place] [address] * (ABNORMAL) CMP (Comprehensive Metabolic Panel) (11/29/2020 6:35 PM CDT) SODIUM 139 136 - 144 mmol/L 11/29/2020 7:21 PM CDT [facility] POTASSIUM 3.7 3.5 - 5.1 mmol/L 11/29/2020 7:21 PM CDT [facility] CHLORIDE 104 100 - 110 mmol/L 11/29/2020 7:21 PM CDT [facility] CO2, VENOUS 27 22 - 32 mmol/L 11/29/2020 7:21 PM CDT [facility] ANION GAP 11.7 8.0 - 20.0 mmol/L 11/29/2020 7:21 PM CDT [facility] GLUCOSE 89 70 - 99 mg/dL 11/29/2020 7:21 PM CDT [facility] BUN 20 8 - 23 mg/dL 11/29/2020 7:21 PM CDT [facility] CREATININE, BLOOD 0.91 0.80 - 1.30 mg/dL 11/29/2020 7:21 PM CDT [facility] BUN/CREATININE RATIO 22(H) 12 - 20 ratio 11/29/2020 7:21 PM CDT [facility] TOTAL PROTEIN 6.4 6.0 - 8.3 g/dL 11/29/2020 7:21 PM CDT [facility] ALBUMIN 4.0 3.5 - 5.2 g/dL 11/29/2020 7:21 PM CDT [facility] Comment: The colormetric methods used for the determination of Albumin may lead to falsely elevated test results in patients suffering from renal failure or insufficiency due to interference with other proteins. A/G RATIO 1.7 1.0 - 2.0 11/29/2020 7:21 PM CDT [facility] CALCIUM 9.0 8.9 - 10.3 mg/dL 11/29/2020 7:21 PM CDT [facility] T BILI 0.3 <=1.2 mg/dL 11/29/2020 7:21 PM CDT [facility] SGOT (AST) 14 <=40 U/L 11/29/2020 7:21 PM CDT [facility] SGPT (ALT) 15 <=41 U/L 11/29/2020 7:21 PM CDT [facility] ALKALINE PHOSPHATASE 65 40 - 130 U/L 11/29/2020 7:21 PM CDT [facility] GFR, EST. NONAFRICAN >60 >=60 11/29/2020 7:21 PM CDT [facility] GFR, EST. >60 >=60 021 7:21 PM CDT [facility] Comment: Creatinine Clearance is the preferred criteria for selecting drug dose adjustments in renally impaired patients. ??The GFR is provided as additional pertinent clinical information. GFR is reported in mL/min/1.73 sq m. Blood Venipuncture / Unknown 11/29/2020 6:35 PM CDT 11/29/2020 6:56 PM CDT us Juan R Courtney MD CHEMISTRY ORDERABLES Final Result [facility] [address] [place] [address] documented in this encounter Visit Diagnoses Diagnosis [...] (CT)) documented in this encounter Care Teams Unitizer Relationship Specialty Start Date End Date Viraj Romeo PAC [address] [place] [address] PCP - General Physician Human Resources Specialist 11/20/17 10/24/23 documented as of this encounter
--- OUTSIDE RECORDS SUMMARY | 2024-06-14 23:21 | XMS_ITS | Encounter Summary ---
Author Organization [employer] Care Team Providers Care Database Specialist Name Role Phone Viraj Romeo Primary Care Provider [phone] Encounter Details Date Type Department Care Team [...] on filedocumented in this encounter Care Teams Database Specialist Relationship Specialty Start Date End Date Viraj Romeo PAC [address] [place] [address] PCP - General Physician Sport Shoe Spike Assembler 11/20/17 10/24/23 documented as of this encounter
--- OUTSIDE RECORDS SUMMARY | 2024-06-14 23:22 | XMS_ITS | Encounter Summary ---
Author Organization [facility] Address [address] [place] [address] Care Team Providers Care Downstream Biomanufacturing Technician Name Role Phone Alberto Stanton MD Primary Care Provider [phone] Reason for Visit * Reason Comments Medication Refill Encounter Details Date Type Department Care Team (Late st Contact Info) Description 12/31/2017 Refill [facility] [address] [place] [id number] Nathanael Fairchild MD [address] [facility] [address] [place] [address] Social History Tobacco Use Types Packs/Day Years [...] on filedocumented in this encounter Care Teams Downstream Biomanufacturing Technician Relationship Specialty Start Date End Date Alberto Stanton MD [address] [place] [address] PCP - General Internal Medicine 06/01/14 documented as of this encounter
--- OUTSIDE RECORDS SUMMARY | 2024-06-14 23:22 | XMS_ITS | Continuity of Care Document ---
Author Organization [employer] [facility] Address [address] [facility] [address] [place] [address] Phone Care Team Providers Care Senior Receptionist Name Role Phone Albina Orellana OD Unavailable Unavailable Allergies, Adverse Reactions, Alerts Substance Reaction Status Criticality No Known Allergies Active No Inform ation Medications Medication Instructions Dosage Effective Dates (start - stop) Status Comments omeprazole 40 mg capsule,delayed release take 1 capsule by oral route every day before a meal 40 MG - Active famotidine 40 mg tablet take 1 tablet by oral route every day at bedtime 40 MG - Active finasteride 5 mg tablet take 1 tablet by oral route every day 5 MG - Active ketoconazole 2 % shampoo apply by topica l route every day to the affected area(s), lather, leave in place for 5 minutes, and then rinse off with water 0.00 - Active multivitamin tablet take 1 tablet by oral route every day with food - Active Nexium 20 mg capsule,delayed release take 1 capsule by oral route every day at least 1 hour before a meal swallowing whole. Do not crush or chew granules. 20 MG - No Longer Active hydroxychloroquine 200 mg tablet take 1 tablet by oral route 2 times every day 200 MG - No Longer Active biotin 10,000 mcg capsule take one pill qd - No Longer Active tamsulosin 0.4 mg capsule take 1 capsule by oral route every day 1/2 hour following the same meal each day 0.4 MG - No Longer Active ranitidine 300 mg tablet take 1 tablet b y oral route 2 times every day - No Longer Active Procedures Procedure Date [...] Diagnoses Date Provider Providers Copied on Encounter [facility], [address], [place], [place], [address], [place] tel:[phone] SEC [place] Professional Complete Exam (chief complaint) High risk medication useNexdtve age-related mclr degn, right eye, early dry stageDry eyes, bilateralCombi mazin forms of age-related cataract, bilateralChori oretinal scar of right eyeScar of cornea of right eyeBilateral ocular hypertension Oct-2 4 Reyna OD Albina. [id number] [place] [address], [address], [place], [place], [address], [place]. tel:[phone] Alissa Fuentes MD.Referri Provider: Judit Walker, [address] [facility], [place], [address]. tel:[phone] [facility], [address], [place], [place], [address], [place] tel:[phone] SEC [place] Professional Complete Exam (chief complaint) High risk medication useScar of cornea of right eyeNexdtve age-related mclr degn, right eye, early dry stageDry eyes, bilateralCombi mazin forms of age-related cataract, bilateral Dec- 0 1 Reyna Montemayor. [address], [address], [place], [place], [address], [place]. tel:[phone] Specialist : Alissa Fuentes MD, [address] [facility] [address], [place], [address]. tel:[phone] er Provider: Alissa Fuentes MD, [address] [facility] [address] [place] [address], [address]. tel:[phone] erring Provider: [place], [address], [place], [address] . tel:[phone] [facility], [facility] [address], [place], [place], [address], [place] tel:[phone] SEC [place] Professional Complete Exam (chief complaint) Nexdtve age-related mclr degn, right eye, early dry stageCombined forms of age-related cataract, right eyeAge-related nuclear cataract, left eyeScar of cornea of right eyeHigh risk medication useSkin tagChorioretin al atrophy of right eye 0 Dallas Weiss. [address] [facility], [facility] [place], [address], [place]. tel:[phone] Other Provider: Alissa Fuentes MD, [address] [facility] [address], [place], [address]. tel:[phone] erring Provider: Abhishek Bonilla, [address] [facility] [address], [place], [address] . tel:[phone] [facility], [address] [place], [place] [address], [place], [place], [address], [place] tel:[phone] SEC Abran Humberto Landin Information 0 Dallas Weiss. [address] [facility], [facility] [address], [place], [place], [address], [place]. tel:[phone] [facility], [address], [place], [place], [address], [place] tel:[phone] SEC [facility] Samuel Complete Exam (chief complaint) Combined forms of age-related cataract, right eyeCombined forms of age-related cataract, left eyeDry eyes, bilateralScar of cornea of right eyeChorioretin al scar of right eyeRPE mottling of macula 8 Aaron Spain. [address] [place], [address], [place]. tel:[phone] Referring Provider: Judit Wakler, [address] [place], [address]. tel:[phone] Family History Family Member Type Diagnosis Age At Onset No Information Payers Payer name Insurance type Covered green party ID Authorvikram treviño(s) [facility] Mdcr Adv CI [id number] Social History Type Description Quantity Date Captured [...]
--- OUTSIDE RECORDS SUMMARY | 2024-06-14 23:22 | XMS_ITS | Continuity of Care Document ---
Author Organization [facility] Address [address] [facility] [address] [place] [address] Phone Care Team Providers Care Surveillance Director Name Role Phone Tuan GARCIA, Adalid Unavailable [...] [facility] , [address], [place], [address], tel:[phone] [facility] Follow up (chief complaint) Chronic coughChronic GERDOther seasonal allergic rhinitisLaryng eal cancer 3 Tuan Hamsa. [address], [place], [place], [address]. tel:[phone] OFFICE/OUTPA TIENT VISIT EST [facility] , [address], [place], [address], tel:[phone] [facility] allergy evaluation (chief complaint) Body mass index [BMI] 27.0-27.9, adultChronic coughChronic panethmoidal sinusitisOther seasonal allergic rhinitisOther allergic rhinitisChroni c GERD 3 Tuan Hamsa. [address], [place], [place], [address]. tel:[phone] OFFICE/OUTPA TIENT VISIT [facility] , [address], [place], [address], [place] tel:[phone] [facility] allergy evaluation (chief complaint) CoughChronic pansinusitisAl lergy to pollen 7 Tuan Hamsa. [address], [place], [place], [address]. tel:[phone] OFFICE/OUTPA TIENT VISIT EST [facility] , [address] [facility] [address], [place], [address], [place] tel:[phone] [facility] nasal congestion (chief complaint)o ccasional coughing (chief complaint) Chronic nasopharyngiti s 2 Tuan Hamsa. [address], [place], [place], [address]. tel:[phone] OFFICE/OUTPA TIENT VISIT EST [facility] , [address] [facility] , [place], [address], [place] tel:[phone] [facility] follow up (chief complaint) Chronic rhinitisChroni c rhinitis 2 Tuan Hamsa. [address], [place], [place], [address]. tel:[phone] OFFICE/OUTPA TIENT VISIT EST [facility] , [address] [facility] [address], [place], [address], [place] tel:[phone] [facility] sick (chief complaint) Cough 2 Tuan Hamsa. [address], [place], [place], [address]. tel:[phone] OFFICE OUTPT EST 25 MIN [facility] , [address] [facility] [address], [place], [address], [place] tel:[phone] [facility] follow up (chief complaint) Chronic nasopharyngiti sRespiratory abnormality, unspecified 2 Tuan Hamsa. [address], [place], [place], [address]. tel:[phone] Family History Family Member Type Diagnosis Age At Onset No Information Immunizations Vaccine Date Status Comments Influenza, quadrivalent, hig h dose, injectable, split virus, preservative free, 0.7 mL dose, Fluzone High-Dose Quad administered Source: Other Provid er Pneumococcal polysaccharide PPV23 adminis tered Source: Other Provider SARS-COV-2 (COVID-19) vaccin e, vector non-replicating, recombinant spike protein-Ad26, preservative free, 0.5 mL (MYTRND) administered Source: Other Provid er Payers Payer name Insurance type Covered republican ID Authorvikram treviño(s) [facility] Medicare Complete HMO OT [id number] Social History Type Description Quantity Date Captured [...] at this time. allergy evaluation 77[facility] was [facility] seen in 2016 for [...]
--- OUTSIDE RECORDS SUMMARY | 2024-06-14 23:22 | XMS_ITS | Encounter Summary ---
Author Organization [facility] Address [address] [place] [address] Care Team Providers Care Kineseologist Name Role Phone Alberto Stanton MD Primary Care Provider [phone] Encounter Details Date Type Department Care Team (Latest Contact Info) Description 06/01/2014 6:20 PM LEAK INSPECTOR - 06/01/2014 11:59 PM LEAK INSPECTOR Hospital Encounter [facility] General Laboratory Services [place] [address] [place] [id number] Viraj Hernández [place] [address] [place] [address] [address] [place] [address] Discharge Disposition: Home or Self Care [...] Diagnosis Comments PATHOLOGY Routine 06/01/2014 10:41 AM LEAK INSPECTOR documented in this encounter Results * PATHOLOGY (06/01/2014 10:41 AM LEAK INSPECTOR) CASE REPORT Surgical Pathology Report ? Case: [id number] ? -------- Authorizing Provider: ??Viraj Hernández MD ? Ordering Provider: ?? Viraj Hernández MD ? Ordering Location: ? [facility] ?? Collected: ? 06/01/2014 10:41 AM ? [facility] ? Pathologist: ? Ezequiel Shelby MD ?Received: ?06/02/2014 10:09 AM ? Specimens: ?? A) - Sinus Contents, Right, right nasal contents ? B) - Sinus Contents, Left, left nasal contents ? 06/07/2014 1:12 PM [facility] FINAL DIAGNOSIS Paranasal sinus, right, curretage - ??Mild chronic inflammation Paranasal sinus, left, curretage - ??Moderate chronic inflammation 06/07/2014 1:12 PM [facility] S DESCRIPTION Received are two containers both [...] decalcification . MARY/ISACC/holden 06-02-14 06/07/2014 1:12 PM [facility] MICROSCOPIC DESCRIPTION A: ??Sections of the right [...] GMS. ?? JLR/las 06/07/14 06/07/2014 1:12 PM [facility] Tissue (Sinus Contents, Right) 06/01/2014 10:41 AM [facility] 06/02/2014 10:09 AM [facility] Tissue specimen (specimen) (Sinus Contents, Left) 06/01/2014 10:41 AM LEAK INSPECTOR 06/02/2014 10:09 AM LEAK INSPECTOR Viraj Hernández MD PATHOLOGY/CYTOLOGY [facility] # [id number] [facility] [address] [place] [address] documented in this encounter Visit Diagnoses Not on filedocumented in this encounter Care Teams Kineseologist Relationship Specialty Start Date End Date Alberto Stanton MD [address] [place] [address] PCP - General Internal Medicine 06/01/14 documented as of this encounter
--- OUTSIDE RECORDS SUMMARY | 2024-06-14 23:22 | XMS_ITS | Encounter Summary ---
Author Organization [facility] Address [address] [place] [address] Care Team Providers Care Noteman Name Role Phone Alberto Stanton MD Primary Care Provider [phone] Reason for Visit * Reason Comments Medication Refill Encounter Details Date Type Department Care Team (Late st Contact Info) Description 09/10/2019 Refill [facility] [address] [place] [address] Nathanael Fairchild MD [address] [facility] [address] [place] [address] Social History Tobacco Use Types Packs/Day Years [...] on filedocumented in this encounter Care Teams Noteman Relationship Specialty Start Date End Date Alberto Stanton MD [address] [place] [address] PCP - General Internal Medicine 06/01/14 documented as of this encounter
--- OUTSIDE RECORDS SUMMARY | 2024-06-14 23:22 | XMS_ITS | Clinical Summary ---
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 Assessment & Plan (04/18/2021 11:46 AM CHOIR ACCOMPANIST): No evidence of disease today. However he [...] CDT): 75 yo M with a h/o [id number] TVC SCCA s/p KTP laser, presenting with new right TVC lesions concerning for malignancy. Plan to proceed to the OR for biopsy and laser treatment of the new right TVC lesions. Assessment & Plan (08/09/2020 3:55 PM CHOIR ACCOMPANIST): No evidence of disease on examination today. Continue routine surveillance. Assessment & Plan (05/20/2020 10:03 AM CHOIR ACCOMPANIST): No evidence of disease on examination today. Continue routine surveillance. 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 Assessment & Plan (06/23/2019 11:47 AM CHOIR ACCOMPANIST): His larynx looks clean after KTP laser treatment. 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 I would like to continue routine observation every 8 weeks. Assessment & Plan (05/12/2019 11:46 AM CHOIR ACCOMPANIST): The leukoplakia of the anterior right true [...] proceed. 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 Assessment & Plan (11/21/2016 9:17 AM CDT): Will continue to monitor the patient with routine labs. 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 Medical Devices Implanted Type Area Body Builder Device Identifier Shelf Expiration Date Model / Serial / Lot [email or web address] Particle Embolization Pre Filled Foam Vial 2ml Microsphere Contour 150-250um Polyvinyl Alcohol [id number] - [id number] Implanted:Qty: 1 on 02/05/2023 at [facility] [email or web address] 08/21/2025 [id number] / / [id number] [employer] Coil Embolization [place] Microcoil [place] Od3-2mm .018 In Catheter [id number] - [id number] Implanted:Qty: 1 on 02/05/2023 at [facility] [employer] 08/07/2027 [id number] / / [id number] [employer] Angio-Seal Vip 6fr Closere Device [id number] - [id number] Implanted:Qty: 1 on 02/05/2023 at [facility] [employer] 08/01/2023 [id number] / / [id number] Procedures Procedure Name Priority Date/Time Associated Diagnosis Comments CT ABDOMEN PELVIS W CONTRAST ED 05/20/2018 1:12 AM CHOIR ACCOMPANIST from Last 3 Months or Most Recently Relevant to Health Maintenance Results * CT Abdomen Pelvis W Contrast (05/20/2018 1:12 AM CHOIR ACCOMPANIST) Anatomical Region Laterality Modality Body N/A Computed Tomogra phy 05/20/2018 7:08 AM CHOIR ACCOMPANIST Impressions 05/20/2018 7:24 AM CHOIR ACCOMPANIST 1. ??PERSISTENT 4 MM DISTAL RIGHT URETER STONE ALTHOUGH HYDROURETERONEPHROSIS ON THE RIGHT HAS C4 IMPROVED COMPARED WITH THE PRIOR EXAMINATION. ??THERE IS PERSISTENT LEFT LOWER POLE HYDRONEPHROSIS. ??NONOBSTRUCTING STONES WITHIN THE KIDNEYS PERSIST. 2. ??DEVELOPMENT OF MILD SPLENOMEGALY. 3. ??OTHER NONACUTE FINDINGS ABOVE. REPORT BY NAUN BOONE FOR VIRTUAL RADIOLOGY 05/20/2018 AT 2:17 AM. Electronically signed by: Antelmo Travis 05/20/2018 7:[address] ABDOMEN PELVIS W CONTRAST HISTORY: Abd [...] Advance Directives For more information, please contact: [phone] Documents on File Type Date Recorded Patient Blow Mold Operator Expl anation ADVANCE DIRECTIVE 03/09/2019 6:43 AM * Full Code (Latest Code Status on File) Date Activated Date Inactivated Comments 02/05/2023 11:14 AM 02/06/2023 5:10 PM * Full Code Date Activated Date Inactivated Comments 07/01/2022 9:36 PM 07/03/2022 2:45 PM Care Teams Audio Visual Design Engineer Relationship Specialty Start Date End Date Grey Tomas MD PCP - General Family Practice 07/27/22 [place] [address] [facility] [address] [place] [address] Rheumatology 02/21/17 Lashay Downs, GAY Registered Nurse Pain Management 06/17/17 Duke Do, RN Registered Nurse 09/09/17 Ngozi Petty MD Radiation Oncologist Radiation Oncology 02/05/19 Jose Roberto Marx MD Referring Physician Otolaryngology 02/05/19
--- OUTSIDE RECORDS SUMMARY | 2024-06-14 23:22 | XMS_ITS | Clinical Summary ---
Author Organization [facility] Address [address] [facility] [address] [place] [address] Phone Care Team Providers Care Counter Intelligence Agent Name Role Phone Alberto Stanton MD Primary Care Provider [phone] Medications Medication Sig Dispensed Refills Start Date [...] d or Tdap) 06/30/2029 06/30/2019 Care Teams Counter Intelligence Agent Relationship Specialty Start Date End Date Alberto Stanton MD [address] [place] [id number] PCP - General Internal Medicine 06/01/14
--- OUTSIDE RECORDS SUMMARY | 2024-06-14 23:22 | XMS_ITS | Encounter Summary ---
Author Organization [facility] Address 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 Procedures PET TUMOR IMG W CT SKL [facility] Jose Roberto Marx [facility] [address] [facility] [address] [address] [place] [address] Referral ID Status Reason Start Date Expiration Date V isits Requested Visits Authorized [id number] Closed [facility] CTS 01/19/2019 02/19/2019 1 1 Reason for Visit * PET Scan (Routine) - Closed Specialty Diagnoses / Procedures Referred By Contac t Referred To Contact Nuclear Medicine Diagnoses 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 Procedures PET TUMOR IMG W CT SKL [facility] Jose Roberto Marx [facility] [address] [facility] [address] [place] [phone] Referral ID Status Reason Start Date Expiration Date V isits Requested Visits Authorized [id number] Closed [facility] CTS 01/19/2019 02/19/2019 1 1 Encounter Details Date Type Department Care Team (Latest Contact Info) Description 01/22/2019 10:12 AM CDT - 01/22/2019 11:59 PM CDT Hospital Encounter [facility] Nuclear Medicine [address] [place] [id number] Jose Roberto Marx MD [address] [facility] [address] [place] [address] Discharge Disposition: Home or Self [...] CDT ?ISTL NM Medication and Flush Protocol [facility] Approved by: [facility] - Medical Executive Committee Approval Date: 12/18/2018 ORDERS ARE ENTERED ???PER PROTOCOL?? Enter the protocol in the patient???s electronic health record using [employer]: .imagingnucmedicineprotocol Communication Orders: o For ordered imaging [...] dosages with a range are determined by pipe coverer and insulator calibration PROCEDURE DOSAGE Bone Marrow Imaging In-111 Chloride (Indium-111 Chloride), Administer 2mCi, IV, ONE TIME. OR Xa94z-Zaiznz Colloid (Fzzeeiqfhe02o-kqhivn colloid), Administer 8mCi Tc99m- sulfur colloid, IV, ONE TIME. Bone Pain Therapy - Quadramet Sm-153 (Samarium-153), Administer 1mCi/kg, IV, ONE TIME. Bone Pain Therapy - Xofigo Ra-223 Xofigo, Administer 1.49uCi/kg, IV, ONE TIME. AND Administer 5 mL sodium chloride, IV, repeated up to 5 times for a total of 30mL. Bone Scan Imaging (Whole Body, Limited, 3-Phase, or SPECT) Ah38g-ULF (Qfrkyteovi69v-txxmmteam diphosphonate), Administer 25mCi, IV, ONE TIME. OR Ri57j-GFA (Xlmlgsisyu08p-osojkpllddutmuqv diphosphonate), Administer 25mCi, IV, ONE TIME. Brain Imaging Zy59j-TXTY (Sfefsopbsu33m-irscqlgpqe-rgfulaqy-wkgwxbycaag), Administer 20mCi, IV, ONE TIME. Brain SPECT Imaging Mb84e-XOZQ (Kdaispyiau33x-davljrijls-bmcbxnww-biylhcriswm), Administer 30mCi, IV, ONE TIME. OR Sm46c-ZLTDZ (Ceretec) (Tuifjnnhbx58m-tinifmosydesnmmprhd amine oxime), Administer 20mCi, IV, ONE TIME. OR Tl-201 (Thallium Chloride-201), Administer 6mCi, IV, ONE TIME. Cerebral Flow Imaging Xu32b-OXDM (Tlthoxxnqn55b-pcxeayvytm-wbvweadg-jzdmyvixfhz), Administer 25mCi,IV, ONE TIME. Cisternogram Imaging In-111 DTPA (Indium-111 tuamjpugrl-ggbmujmu-cqkxqtbjqxp), Neuroradiologist to administer 500uCi, Intrathecally, ONE TIME. Cystogram Imaging Tc-99m Pertechnetate (Fzdhtbntgs08n-msqhyzvdbtukw) Administer 1mCi Wz77y-dmmtqqovchkir, intra-newby catheter, ONE TIME AND 1000ml NS, intra-newby catheter, ONE TIME. DaTscan Imaging I-123 Ioflupane (Iodine-123 ioflupane), Administer 5mCi, IV, ONE TIME. AND Administer SSKI (Potassium Iodide) drops, 130mg, Orally, ONE TIME one hour prior to radiopharmaceutical injection. Diuretic Renal Imaging Df90n-PMDI (Obnzaxmtsz65x-izrqycsqxa-erobzkhk-wydgqqsxinx), Administer 5mCi,IV, ONE TIME. AND Administer Lasix (furosemide), 1mg/kg, IV push over 2 minutes, ONE TIME. Maximum dose of 40mg. OR Mg56r-LAA3 (Llxuhfhjhz36k-gecatjpqkmbqqzwgatevbya), Administer 5mCi, IV, ONE TIME. AND Administer Lasix (furosemide), 1mg/kg, IV push over 2 minutes, ONE TIME. Maximum dose of 40mg. Diverticulum/Meckel's Imaging Tc-99m Pertechnetate (Ukwpztqjgx35t- pertechnetate), Administer 15mCi,IV, ONE TIME. Esophageal Reflux Imaging Qi65n-Oafhxo Colloid (Zceuzxeyvd28x-gwbjte colloid), Administer 1mCi in 1oz whole milk [...] TIME. Gastric Empty Imaging - Solid Meal Ff57l-Dwxlrt Colloid (Vymrslicjq60v-kbwkjw colloid), Administer 500uCi in 4 oz egg beaters or in 1 package of cooked instant oatmeal, Orally, ONE TIME. Gastric Empty Imaging - Liquid Meal Rn25y-Mocejg Colloid (Kuczyagjwy74e-usupmj colloid), Bpgnvcdpul337rSu in 300mL whole milk, Orally, ONE TIME. GFR Imaging Fn04b-LRAL (Dgjrpotxbv94r-sigbamogsi-icpbwjac-vecabduqpqf), Administer 3mCi, IV, ONE TIME. GI Bleed Imaging Tc-99m Pertechnetate (Alkypzilzm85m-pqfvchqnugixn), Administer 22mCi heparanized RBCs, IV, ONE TIME. Hemangioma Imaging NaPYP (sodium pyrophosphate) AND Tc-99m Pertechnetate (Btkfhwuqwk22m-kmfhbmunwedxm), Administer 6mg PYP, IV, ONE TIME. AND Administer 20mCi Gw62d-qzfbwlbgsksqm, IV, ONE TIME. OR Tc-99m Pertechnetate (Gapubgsnlx92k-kwmizqeaaboun), Administer 22mCi heparanized RBCs, IV, ONE TIME. Hepatic Artery Perfusion Imaging TC-99m MAA (Swcqtysjds54y-xcvwmvlmotxmksq albumin), InterventionalRadiologist to administer 3 mCi in three divided doses of 1 mCi each, intra-arterial via catheter, ONE TIME. Hepatobiliary Scan Imaging Tc-99m Mebrofenin (Yovburdsec04c-ewsszpvdxp), Administer 5 mCi IV, ONE TIME *For inpatients only, if bilirubin >5mg/dL, Administer 8 mCi IV, ONE TIME *For inpatients only, if bilirubin > 8mg/dL, consult nuclear medicine physician prior to administering radiopharmaceutical Hepatobiliary Scan with Ejection Fraction Imaging Tc-99m Mebrofenin (Hwvlfzdtrv47a-ylrverzqor), Administer 5 mCi IV, ONE TIME. *For [...] Hepatobiliary Scan with Pre-Treatment Imaging Tc-99m Mebrofenin (Hvtjsgwrhj32s- mebrofenin), Administer 5 mCi IV, ONE TIME. [...] over 5 minutes. Hot PYP Bone Imaging Go03q-JeYOS (Ogjofmzszg16o-coawir pyrophosphate), Administer 15mCi, IV, ONE TIME. Hot PYP Cardiac Imaging Ee49g-RiNVX (Spgwxzzgzh42c-mjpgil pyrophosphate), Administer 15mCi, IV, ONETIME. Hot PYP Muscle Imaging Zl35i-DpMVS (Zxhgmtnoyv60n-anyhgr pyrophosphate), Administer 20mCi, IV, ONE TIME. In-111 WBC Imaging In-111 Oxine (Indium-111 Oxine), Administer at least 400uCi, up to 800uCi, heparanized WBC, IV, ONE TIME. Lacrimal Imaging Og41q-Zypspy Colloid (Rudmzyzzsx24j-omyjdh colloid), Administer 2 drops per eye jn786nFy/drop, Droplet, ONE TIME. Liver Imaging Xy88y-Fufgru Colloid (Ozzxvntwpy78i-lnyvip colloid), Administer 6mCi, IV, ONE TIME. Lung Perfusion - Obese Patient Imaging Tc-99m MAA (Vpapoblgkh87y-iqdxpwchhihbako albumin), Administer 5mCi for patients > 35BMI, IV, ONE TIME. Lung Perfusion - Obese Patient Imaging Tc-99m MAA (Flqxphmdxu58s- macroaggregated albumin),Administer 3mCi for patients > 35BMI, IV, ONE TIME. Lung Perfusion Imaging Tc-99m MAA (Ykuyiwgbxc81r-pkikmplrrtuwspr albumin), Administer 4mCi, IV, ONETIME. Lung Perfusion - Patient Imaging Tc-99m MAA (Bamvgwtoas84l- macroaggregated albumin), Administer 2mCi for patients , IV, ONE TIME. Lung Ventilation Imaging Xe-133 (Xenon-133), Administer at least 10 mCi, up to 30 mCi, inhalation, ONE TIME. Lymphoscintigraphy - Breast Cancer, Next Day Surgery Ua73u-Lfjhzyrpyj (Zcpdscodck20i-wilyfzeoik), Administer 2mCi in 2 divided doses of 1mCi each, intradermal, ONE TIME. AND Lidocaine 4% (L.M.X.4) applied 30 minutes prior to injections, TOPICAL, ONE TIME PRN. Lymphoscintigraphy - Breast Cancer, Same Day Surgery Xp78i-Ovxtwematl (Wijmrcjxqk08u-rkpbvfeqxl), Administer 500uCi in 2 divided doses of 250uCi each, intradermal, ONE TIME. AND Lidocaine 4% (L.M.X.4) applied 30 minutes prior to injections, TOPICAL, ONE TIME PRN. Lymphoscintigraphy - Malignant Melanoma, Next Day Surgery Pt83t-Accauaimjf (Aywtotfcjn24f-cwvltjhldp), Administer 2mCi in 4 divided doses of 0.5mCi each, intradermal, ONE TIME. AND Lidocaine 4% (L.M.X.4) applied 30 minutes prior to injections, TOPICAL, ONE TIME PRN. Lymphoscintigraphy - Malignant Melanoma, Same Day Surgery Kv99k-Zozqcopwtu (Czdbknpznn72z-wdmmjlxtpa), Administer 500uCi in 4 divided doses of 125uCi each, intradermal, ONE TIME. AND Lidocaine 4% (L.M.X.4) applied 30 minutes prior to injections, TOPICAL, ONE TIME PRN. Lymphoscintigraphy - Malignant Melanoma, Small Body Area, Next Day Surgery Yc87q-Xtdczursru (Eujqlojspv30g-lgynnkfwze), Administer 2mCi in 2 divided doses of 1mCi each, intradermal, ONE TIME. AND Lidocaine 4% (L.M.X.4) applied 30 minutes prior to injections, TOPICAL, ONE TIME PRN. Lymphoscintigraphy - Malignant Melanoma, Small Body Area, Same Day Surgery Hz79o-Mharwwjufm (Zfjicggepa71j-xljopqozpq), Administer 500uCi in 2 divided doses of 250uCi each, intradermal, ONE TIME. AND Lidocaine 4% (L.M.X.4) applied 30 minutes prior to injections, TOPICAL, ONE TIME PRN. MIBG Imaging I-123 MIBG (Iodine-123 metaiodobenzylguandidine), Administer 10mCi, IV, ONE TIME. Microsphere Mapping Tc-99m MAA (Skjjfiksnr79n-kxwqorzsvcfvddg albumin), Interventional Radiologist to administer 4 mCi in two divided doses of 2 mCi each, intra-arterial via catheter, ONE TIME. MUGA/RVG Imaging Tc-99m Pertechnetate (Qruepgbwyt57d-xcqzszrwzvnml), Administer 22mCi heparanized RBCs, IV, ONE TIME. Myocardial Dual Isotope Imaging Tl-201 (Thallium Chloride-201) AND Zl42i-Nqokjsr (Juvexxeagu03e-dfnvkjr), Administer 3mCi Tl-201for resting images, IV, ONE TIME AND Administer 8mCi Ar76l-muxgsie for stress images, IV, ONE TIME. Myocardial Planar Imaging Lt99y-Enjdcyo (Jgvpoqmxja95t-Urofuyn), Administer 30mCi, IV, ONE TIME edouard images, ONE TIME for stress images. Myocardial Rest Imaging - SPECT Imaging Tl-201 (Thallium Chloride-201), Administer 4mCi, IV, ONE TIME. OR Ff34v-Meeiosa (Zqfmimlmue37d-Orkoeov), Administer 4mCi for patients <180 lbs, IV, ONE TIME. OR Mh66b-Hxhvghv (Axqxgmhjxz17z-Sqxmumj), Administer 5mCi for patients 181-240 lbs, IV, ONE TIME. OR Sv95z-Fkilrkq (Bkwwfcblwn19o-Jehkxaa), Administer 6mCi for female patients 241- 265 lbs, IV, ONE TIME. OR Jj21y-Jktkboi (Eqaryoetsg60g-Vkevknk), Administer 6mCi for male patients 241-330 lbs, IV, ONE TIME. OR Ke34r-Jhnoldp (Uxhwgablcg29s-Hmfwyya), Administer 8mCi for female patients 266- 399 lbs, IV, ONE TIME. OR Vx32p-Qkgybox (Oqkevulmyp20r-Dgonerl), Administer 8mCi for male patients 331-299 lbs, IV, ONE TIME. Myocardial Stress - SPECT Imaging Gq21u-Hxqonce (Mknklyqcgp75p-Dcmdlcq), Administer 12mCi for patients <180 lbs, IV, ONE TIME. OR Vj36o-Brvzrbz (Omlmsmpwae82m-Usabotw), Administer 15mCi for patients 181-240 lbs, IV, ONE TIME. OR Db94r-Saxfiqk (Zllkhnwdzb36g-Zxzrocc), Administer 18mCi for female patients 241- 265 lbs, IV, ONE TIME. OR Ju92p-Oapapow (Mynyqbtxlk62j-Jgnqggc), Administer 18mCi for male patients 241- 330 lbs, IV, ONE TIME. OR Uv62r-Xwcohaz (Fiyfybjypj66z-Lscmbrb), Administer 24mCi for female patients 266- 399 lbs, IV, ONE TIME. OR Dj47k-Klaomxg (Wgapwhzmek65z-Hwukbec), Administer 24mCi for male patients 331- 299 [...] Administer 6mCi, IV, ONE TIME. Parathyroid Imaging Gf70j-Dimybodyr (Uuoelfebbu07v-mgzpjvizo), Administer 20mCi, IV, ONE TIME. PET/CT Axumin F-18 Axumin (Bjktjqzl70-guywminofzbr), Administer 10mCi, IV, ONE TIME. PET/CT Bone Scan F18-NaF (Zveapwbp35-laleeh fluoride), Administer 0.11mCi/kg with at least 8mCi, upto 14mCi, IV, ONE TIME. PET/CT Brain Imaging F18-FDG (Fdectcgc14-lpntniwmgbtdgpaqa), Administer 0.11mCi/kg with at least 8mCi, up to 14mCi, IV, ONE TIME. PET/CT Dotatate Imaging Ga-68 Dotatate (Gallium-68 Dotatate), Administer 5.4mCi, IV, ONE TIME. PET/CT Limited, Standard, or Whole-Body Oncology Imaging F18-FDG (Pglrtash58- flurodeoxyglucose), Administer 0.11mCi/kg with at least 8mCi, up to 14mCi, IV, ONE TIME. PET/CT Myocardial Scan F18-FDG (Tqhcdysm10-jjsiczrdmdovbnhkq), Administer 0.11mCi/kg with at least 8mCi, up to 14mCi, IV, ONE TIME. Post GFR Imaging Ha99z-WASL (Ohtlclxslw02t-hclgrvbciz-jvpaehku-ljbdjrmwyza), Administer 12mCi, IV, ONE TIME. OR Zd32v-UCK7 (Orlwzjgnls63p-rabkhxubgykijjcivfrymoo), Administer 5mCi, IV, ONE TIME. PY Breath Test C-14 Urea (Carbon-14 Urea), Administer 1 uCi, Orally, ONE TIME. Renal Cortical Imaging Xh88e-JELP (Aopjqadlvp60h-lndhdpmiajbshstonj acid), Administer 5mCi, IV, ONETIME. Renal Perfusion Imaging Fr62a-VPSD (Lqfjaezaoc79u-kqdtlwmycb-xibdytel-wnrvsgmdeqd), Administer 15mCi, IV, ONE TIME. OR Ot00s-YUU2 (Uzjvycbekv01v-wjxsvoojnaaehzhwlxdhusi), Administer 5mCi, IV, ONE TIME. Renogram Imaging Of11y-YING (Nnthilevhe21h-plieoiiioe-mecivigf-gpxfzgviaon), Administer 5mCi, IV, ONE TIME. OR Sk79x-AIS7 (Vcddphvuqw87w-wnqnfpttddlzfnmleeorolq), Administer 5mCi, IV, ONE TIME. Renogram with Flow Imaging Vv33e-KRDE (Twltixtgjd07t-ozaezgtviy-gsymxyoa-yetyepxqiha), Administer 5mCi, IV, ONE TIME. OR Bk62q-GNP3 (Rqmubaagso10i-cbfgscvvikfrgfbaqooiiwh), Administer 5mCi, IV, ONE TIME. Salivary Imaging Tc-99m Pertechnetate (Fvgouthxjs85m-qtuhbebvtezsr), Administer 5mCi, Orally, ONE TIME. Shunt Patency Imaging Xu19w-JDDE (Ekcriujgmq47z-zbjgxsmfso-tiyisboz-exokrxqqoyi), Neuroradiologist to administer 500uCi, intra-shunt reservoir, ONE TIME. Substernal Thyroid Imaging I-131 Na Iodide (Iodide-131 Na Iodide), Administer 100 uCi, Orally, ONE TIME. Mg32t-WOX Imaging Mx43q-Byeswue (Xdlbhmudcr32y-Jzpxjdb), Administer at least 15mCi, up to 20mCi, heparanized WBC, IV, ONE TIME. Testicular Imaging Tc-99m Pertechnetate (Mreuabchau71k-govipbqvwjcra), Administer 15mCi, IV, ONE TIME. Thallium Whole Body Scan Imaging Tl-201 (Thallium Chloride-201), Administer 3mCi, IV, ONE TIME. Thyrogen Injection Thyrogen (thyrotopin jade), Administer 0.9mg, deep IM, every 24 hours for 2 doses. Thyroid Imaging Tc-99m Pertechnetate (Odiwbvciai04f-mokrycapmxllk), Administer 5mCi, IV, ONE TIME. Thyroid Scan/Uptake I-123 Na Iodide (Iodide-123 Na Iodide), Administer at least 200 uCi, up to 400 uCi, Orally, ONE TIME. Thyroid Uptake I-131 Na Iodide (Iodide-131 Na Iodide), Administer at least 5 uCi, up to 25 uCi, Orally, ONE TIME. Vasotec/Enalaprilat Renal Imaging Km76e-VXCF (Wfffgeouvc00i-hofcsowsie-swuduxmm-bmchmacjdpt), Administer 5mCi, IV, ONE TIME. AND Administer Enalaprilat (Vasotec) 0.04mg/kg with a maximum dose of 2.5mg. Dilute to 5mL total volumewith normal saline and infuse via infusion device over 5 minutes. OR Ss35m-ZMS6 (Pwoqpkdxjm00k-fkctuhmgfnxqjjngrjadgbv), Administer 5mCi, IV, ONE TIME. AND Administer Enalaprilat (Vasotec) 0.04mg/kg with a maximum dose of 2.5mg. Dilute to 5mL total volumewith normal saline and infuse via infusion device over 5 minutes. Venography Imaging NaPYP (sodium pyrophosphate) AND Tc-99m Pertechnetate (Acvponfszx04h-bvmbuifogdpsd), Administer 6mg NaPYP, IV, ONE TIME AND Administer 15mCi Ve97q-wzdkrtsynmxzu, IV, ONE TIME. Whole Body I-131 Imaging I-131 Na Iodide (Iodide-131 Na Iodide), Administer 3 mCi, Orally, ONE TIME. Pediatric Procedures & Dosages: o Note: Radiopharmaceuticals dosages with a range are determined by pipe coverer and insulator calibration PROCEDURE DOSAGE Bone Scan Imaging (Whole Body, Limited, 3-Phase, or SPECT) Os90g-XJU (Wprwbkzncj34k-yxxerlksj diphosphonate), Administer 0.25mCi/kg with at least 1mCi, up to 20mCi, IV, ONE TIME. Brain Imaging Yf35y-WGQS (Vnnjhfqwnl02s-kusgjkboky-emcnaite-wunyywdshjo), Administer 0.8mCi/kg with at least 5mCi, up to 20mCi, IV, ONE TIME. Cisternogram Imaging In-111 DTPA (Indium-111 aywwycrhjn-lhvqxbgr-rdepdhnyjpz), Neuroradiologist to administer 4uCi/kg with at least 50uCi, up to 300uCi, Intrathecally, ONE TIME. Cystogram Imaging Tc-99m Pertechnetate (Wljxukueym65j-hwgepefypoehm) Administer 1mCi, intra-newby catheter, ONE TIME AND Administer 500ml-1000ml NS, intra-newby catheter, ONE TIME. Diuretic Renal Imaging Sl03t-FBSE (Nyrpetjlwi25w-hdgfmhhstd-fahvdpup-nbhamqtscix), Administer 0.2mCi/kg with at least 2.5mCi, up rm66sJy , IV, ONE TIME. AND Administer Lasix (furosemide), 1mg/kg, up to 40mg, IV push over 2 minutes, ONE TIME. OR Gi23b-GOG2 (Jlvlocvabi40g-vfzwzhupgsbddmsghcugeui), Administer 0.1mCi/kg with at least 1mCi, up to 5mCi, IV, ONE TIME. AND Administer Lasix (furosemide), 1mg/kg, up to 40mg, IV push over 2 minutes, ONE TIME. Diverticulum/Meckel's Imaging Tc-99m Pertechnetate (Aasvjgkbbg59i- pertechnetate), Administer 0.05mCi/kg with at least 2.5mCi, up to 15mCi, IV, ONE TIME. Esophageal Reflux Imaging - <1yoa Kl32h-Xfskui Colloid (Xujmwtthug39e-pczjae colloid), Administer 0.1mCi for patients <3.5lbs, Orally, ONE TIME. OR Administer 0.2mCi for patients 3.5-6.5lbs, Orally, ONE TIME. OR Administer 0.3mCi for patients >6.5lbs, Orally, ONE TIME. *For all administrations, mix half of formula or breast milk feeding amount with radiopharmaceutical. Follow with remainder of feeding amount. Esophageal Reflux Imaging - >1yoa Fk47g-Rsvuge Colloid (Cirzgtfcbm91q-zkxwsm colloid), Administer 0.5mCi in 1 oz whole [...] TIME. Gastric Empty Imaging - Liquid Meal Yj95h-Fbgepx Colloid (Emnmdotsju70t-tydboj colloid), Administer0.5mCi in 300mL whole milk or formula, Orally, ONE TIME. Gastric Empty Imaging - Solid Meal Aw57s-Srszol Colloid (Firsokeupn52y-cxfhxw colloid), Administer 500uCi in 4 oz egg beaters or in 1 package of cooked instant oatmeal, Orally, ONE TIME. GI Bleed Imaging Tc-99m Pertechnetate (Ifnjceyscm38q-mipeteiqwcjqf), Administer 0.2mCi heparanized RBCs with at least 1mCi, up to 20mCi, IV, ONE TIME. Hemangioma Imaging Tc-99m Pertechnetate (Vyvbigqwfg39f-qbpsqrpojwoio), Administer 0.2mCi heparanized RBCs with at least 1mCi, up to 20mCi, IV, ONE TIME. Hepatobiliary Scan Imaging Tc-99m Mebrofenin (Xoytxzxhjp19x-omhorpqhxe), Administer .05mCi/kg with a at least 1mCi, up to 5mCi IV, ONE TIME Hepatobiliary Scan with Ejection Fraction Imaging Tc-99m Mebrofenin (Yvodqbshze50h-olsawlvkgh), Administer .05mCi/kg with a at least 1mCi, up to 5mCi IV, ONE TIME AND For immediate use - Sincalide (Kinevac) 0.02 mcg/kg IV, ONE TIME, diluted with NS to a total infused volume of 30 mLs. Infuse via an infusion device over 30 minutes. Hepatobiliary Scan with Pre-Treatment Imaging Tc-99m Mebrofenin (Rurjngjlzg48d- mebrofenin), Administer 0.05mCi/kg with a at least 1mCi, up to 5mCi IV, ONE TIME AND For immediate use - Sincalide (Kinevac) 0.01 mcg/kg IV, ONE TIME, diluted with NS to a total infused volume of 5 mLs., IV push over 5 minutes. Hot PYP Bone Imaging Cq69m-RsTWO (Hbuvzkqelx92p-twbdlx pyrophosphate), Administer 0.6mCi/kg, with at least 2.5mCi, up to 20mCi IV, ONE TIME. Hot PYP Cardiac Imaging Vd93q-QiQMO (Xctyrlrtgs22m-wwsazq pyrophosphate), Administer 0.6mCi/kg, with at least 2.5mCi, up to 20mCi IV, ONE TIME. In-111 WBC Imaging In-111 Oxine (Indium-111 Oxine), Administer 20uCi/kg with at least 50uCi, up to 300uCi, heparanized WBC, IV, ONE TIME. Liver/Spleen Imaging Nf69j-Wjxyli Colloid (Nmlispnwns14d-qlrdic colloid), Administer 0.05mCi/kg with at least 0.4mCi, up to 3mCi, IV, ONE TIME. Lung Perfusion Imaging Tc-99m MAA (Midflrfhiy24w-hzvvmmqarotrmex albumin), Administer 0.03mCi/kg, with at least 0.4mCi, [...] Orally, ONE TIME. MUGA/RVG Imaging Tc-99m Pertechnetate (Erorqiyixp48w-ydvzhglpknqfh), Administer 0.2mCi/kg heparanized RBCs with at least 1mCi, up to 20mCi, IV, ONE TIME. Myocardial Rest Imaging - SPECT Imaging Ew72y-Zgxflkv (Cwdfwxfnav32w-Ssgolbl), Administer at least 5.18mCi, up to 6.08mCi, IV, ONE TIME. Consult authorized user prior to administration. Dosage based on Sanchez's Rule (age+1/age+7)*8 Myocardial Stress Imaging - SPECT Imaging Ud30l-Rodukee (Adfpcaxhxc48e-Jgutzmx), Administer at least 15.5mCi, up to 18.24mCi, [...] to 6mCi, IV, ONE TIME. Parathyroid Imaging Qn67v-Mvukuuqvy (Qvahntwfqm37d-mfhwqvgmm), Administer at least 5.18mCi, up to 6.08mCi, IV, ONE TIME. Dosage based on Sanchez's Rule (age+1/age+7)*8 PET/CT Brain Imaging F18-FDG (Gazzqyiv02-cyixnxqfjbwnxktce), Administer 0.11mCi/kg with at least 1mCi, up to 10mCi, IV, ONE TIME. PET/CT Limited, Standard, or Whole-Body Oncology Imaging F18-FDG (Wiuqkqno71- flurodeoxyglucose), Administer 0.11mCi/kg with at least 2mCi, up to 10mCi, IV, ONE TIME. Renal Cortical Imaging Em14u-CODI (Joxupyzsdy33n-inqefwknwuzhcsbtge acid), Administer 0.05mCi/kg with at least 0.5mCi, up to 2.5mCi, IV, ONE TIME. Renogram Imaging Oq19j-NSUN (Rprnrntklv07u-pbjmzpgoby-rkegymcf-divgxokibiy), Administer 0.2mCi/kg with at least 2.5mCi, up az85xSx OR Ra85w-ISO4 (Sqjlyulhdz81s-xhwtvgemdznvghmqqlpnosc), Administer 0.1mCi/kg with at least 1mCi, up to 5mCi, IV, ONE TIME. Renogram with Flow Imaging Lh82e-RLOH (Kfhkctfzco60l-oqigavrvfy-mndugure-uwzwsyjvmkj), Administer 0.2mCi/kg with at least 2.5mCi, up wz54lNx OR Tr67o-HTR2 (Vncjtcupjx97s-vhfkilceglpoqdvyijibfbs), Administer 0.1mCi/kg with at least 1mCi, up to 5mCi, IV, ONE TIME. Qp99a-FRL Imaging Ot05g-Bfrtcol (Moxlwlkdjl06i-Kxagpdu), Administer 0.6mCi/kg heparanized WBC, IV, ONE TIME. Confirm calculated dose with nuclear medicine physician prior to injection. Testicular Imaging Tc-99m Pertechnetate (Ezgprckwdq08s-ejkvuzvexwkbx), Administer 0.4mCi/kg with atleast 5mCi, up to 15mCi, IV, ONE TIME. Thyroid Imaging Tc-99m Pertechnetate (Zupxxemzyv28j-ewphdiaizcvjb), Administer 0.07mCi/kg with at least 1mCi, up to 5mCi, IV, ONE TIME. Thyroid Scan/Uptake I-123 Na Iodide (Iodide-123 Na Iodide), Administer at least 100uCi, up to 200uCi, Orally, ONE TIME. Thyroid Scan/Uptake I-131 Na Iodide (Iodide-131 Na Iodide), Administer at least 2uCi, up to 20uCi, Orally, ONE TIME. Vasotec/Enalaprilat Renal Imaging [id number] (Ojtomhdygc26t-pdclyvggri-muiyonlx-koyysqpkssw), Administer 0.2mCi/kg with at least 2.5mCi, up [id number] AND Administer Enalaprilat (Vasotec) 0.03mg/kg, up to 2.5mg. Dilute to 5mL total volume with normal saline and infuse via infusion device over 5 minutes. OR [id number] (Jkuwzbstxj42j-ehvgpbqrkrkceqytxklhkmu), Administer 0.1mCi/kg with at least 1mCi, up [...] Delatorre MD DICTATION LOCATION: Location 1 - [facility] 01/22/2019 3:25 PM CDT PET/CT IMAGING WITH [...] Dr. Eleni Delatorre MD DICTATION LOCATION: Location [address] [place] [address] Jose Roberto Marx MD PE ORDERABLES documented [...] mL documented in this encounter Care Teams Hand Cutter Apprentice Relationship Specialty Start Date End Date Alberto Stanton MD [address] [place] [id number] PCP - General Internal Medicine 06/01/14 documented as of this encounter
--- OUTSIDE RECORDS SUMMARY | 2024-06-14 23:23 | XMS_ITS | Encounter Summary ---
Author Organization [facility] Healthcare Address [address] [place] [address] Care Team Providers Care Cryptographic Vulnerability Analyst Name Role Phone Criss Blanco MD Unavailable Lashay Downs RN Unavailable Unavailab Duke Goodwin RN Unavailable UnavailNgozi Husain MD Unavailable [phone] Jose Roberto Marx MD Unavailable [phone] Grey Tomas MD Primary Care Provider [phone] Encounter Details Date Type Department Care Team (Late st Contact Info) Description 12/27/2023 Telephone [facility] Pulmonary at [address] [place] [address] Carlos Perez MD [address] [place] [address] [address] [place] [address] Social History Tobacco Use Types [...] file Legal Sex Male 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 documented as of this encounter Visit Diagnoses Not on filedocumented in this encounter Care Teams Cryptographic Vulnerability Analyst Relationship Specialty Start Date End Date Grey Tomas MD PCP - General Family Practice 07/27/22 [place] [address] [facility] [address] [place] [address] Rheumatology 02/21/17 aLshay Downs, RN Registered Nurse Pain Management 06/17/17 Duke Do, RN Registered Nurse 09/09/17 Ngozi Petty MD Radiation Oncologist Radiation Oncology 02/05/19 Jose Roberto Marx MD Referring Physician Otolaryngology 02/05/19 documented as of this encounter
--- OUTSIDE RECORDS SUMMARY | 2024-06-14 23:23 | XMS_ITS | Encounter Summary ---
Author Organization [facility] Healthcare Address [address] [place] [address] Care Team Providers Care Receptionist Name Role Phone Criss Blanco MD Unavailable Lashay Downs RN Unavailable Unavailab Duke Goodwin RN Unavailable UnavailNgozi Husain MD Unavailable [phone] Jose Roberto Marx MD Unavailable [phone] Grey Tomas MD Primary Care Provider [phone] Reason for Visit * Reason Comments Elbow Pain Left elbow pain. Ons et: 08/15/23 Patient work up today with worse pain. 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 RB: SONAM Report ID: [id number] Reading Location: [id number] Albina CUMMINGS IMG XR PROCEDURES F inal [...] 10/23/2023 added in this encounter Care Teams Receptionist Relationship Specialty Start Date End Date Grey Tomas MD PCP - General Family Practice 07/27/22 [place] [address] [facility] [address] [place] [address] Rheumatology 02/21/17 Lashay Downs, RN Registered Nurse Pain Management 06/17/17 Duke Do, GAY Registered Nurse 09/09/17 Ngozi Petty MD Radiation Oncologist Radiation Oncology 02/05/19 Jose Roberto Marx MD Referring Physician Otolaryngology 02/05/19 documented as of this encounter
--- OUTSIDE RECORDS SUMMARY | 2024-06-14 23:23 | XMS_ITS | Encounter Summary ---
Author Organization [facility] Healthcare Address [address] [place] [address] Care Team Providers Care Front Desk Representative Name Role Phone Criss Blanco MD Unavailable Lashay Downs RN Unavailable Unavailab Duke Goodwin RN Unavailable UnavailNgozi Husain MD Unavailable [phone] Jose Roberto Marx MD Unavailable [phone] Grey Tomas MD Primary Care Provider [phone] Reason for Referral * Procedure (Routine) - Closed Specialty Diagnoses / Procedures Referred By Contac t Referred To Contact Diagnoses Cough, unspecified type Procedures Pulmonary Function Test -[facility]; Complete/Full (Spirometry, Pleth and DLCO) Carlos Perez MD [address] [place] [address] DR THAKUR [address] [place] [address] Phone: tel: fax: Referral ID Status Reason Start Date Expiration Date Visits Re quested Visits Authorized [id number] Closed 09/24/2023 10/23/2024 1 1 Reason for Visit * Procedure (Routine) - Closed Specialty Diagnoses / Procedures Referred By Contac t Referred To Contact Diagnoses Cough, unspecified type Procedures Pulmonary Function Test -[facility]; Complete/Full (Spirometry, Pleth and DLCO) Carlos Perez MD [address] [place] [address] DR THAKUR [address] [place] [address] Phone: tel: fax: Referral ID Status Reason Start Date Expiration Date Visits Re quested Visits Authorized [id number] Closed 09/24/2023 10/23/2024 1 1 Encounter Details Date Type Department Care Team (Latest Contact Info) Description 10/02/2023 8:20 AM CDT - 10/02/2023 11:59 PM CDT Hospital Encounter [facility] Respiratory [address] [place] [address] Cough, unspecified type Discharge Disposition: Discharge to home or self care Social History Tobacco Use Types Packs/Day Years Used Date Smoking Tobacco: Former Cigarettes 1.5 37 1 [phone] - 0191 Smokeless Tobacco: Never Alcohol Use Standard Drinks/Week [...] on file 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 Gender Identity Not on file Sexual Orientation [...] 1 tablet (5 mg total) by mouth counseling director before breakfast multivitamin capsuleIndications:V itamin Deficiency Prevention [...] (two) times a day 07/24/2023 4 rizatriptan BONE TENDER (MAXALT-BONE TENDER) 10 mg disintegrating tabletIndications:Mi graine Take 1 [...] this encounter Results * Pulmonary Function Test -[facility]; Complete/Full (Spirometry, Pleth and DLCO) (10/02/2023 [...] type documented in this encounter Care Teams Front Desk Representative Relationship Specialty Start Date End Date Grey Tomas MD PCP - General Family Practice 07/27/22 [place] [address] [address] Rheumatology 02/21/17 Lashay Downs, GAY Registered Nurse Pain Management 06/17/17 Duke Do, RN Registered Nurse 09/09/17 Ngozi Petty MD Radiation Oncologist Radiation Oncology 02/05/19 Jose Roberto Marx MD Referring Physician Otolaryngology 02/05/19 documented as of this encounter
--- OUTSIDE RECORDS SUMMARY | 2024-06-14 23:23 | XMS_ITS | Encounter Summary ---
Author Organization [facility] Healthcare Address [address] [place] [address] Care Team Providers Care Traveling Repair Accountant Name Role Phone Criss Blanco MD Unavailable Lashay Downs RN Unavailable Unavailab Duke Goodwin RN Unavailable UnavailNgozi Husain MD Unavailable [phone] Jose Roberto Marx MD Unavailable [phone] Grey Tomas MD Primary Care Provider [phone] Encounter Details Date Type Department Care Team (Latest Contact Info) Description 08/15/2023 11:30 AM CDT - 08/15/2023 11:59 PM CDT Hospital Encounter [facility] [address] [place] [address] Left elbow pain Discharge Disposition: Discharge to [...] 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 RB: SONAM Report ID: [id number] Reading Location: [id number] Albina CUMMINGS IMG XR PROCEDURES F inal Result documented in this encounter Visit Diagnoses Diagnosis Left elbow pain Pain in joint, upper arm documented in this encounter Care Teams Traveling Repair Accountant Relationship Specialty Start Date End Date Grey Tomas MD PCP - General Family Practice 07/27/22 [place] [address] [facility] [address] [place] [address] Rheumatology 02/21/17 Lashay Downs, GAY Registered Nurse Pain Management 06/17/17 Duke Do, RN Registered Nurse 09/09/17 Ngozi Petty MD Radiation Oncologist Radiation Oncology 02/05/19 Jose Roberto Marx MD Referring Physician Otolaryngology 02/05/19 documented as of this encounter
--- OUTSIDE RECORDS SUMMARY | 2024-06-14 23:23 | XMS_ITS | Encounter Summary ---
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 ENT [address] 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 DISPOSITION: 6 months Dariana Herrera MD Salesperson [employer] [facility] Division of [...] stairs Contact your local community or [facility] for information on exercise, fall prevention [...] documented as of this encounter Care Teams Lay Brother Relationship Specialty Start Date End Date Grey Tomas MD PCP - General Family Practice 07/27/22 [place] [address] [facility] [address] [place] [address] Rheumatology 02/21/17 Lashay Downs, GAY Registered Nurse Pain Management 06/17/17 Duke Do, GAY Registered Nurse 09/09/17 Ngozi Petty MD Radiation Oncologist Radiation Oncology 02/05/19 Jose Roberto Marx MD Referring Physician Otolaryngology 02/05/19 documented as of this encounter
--- OUTSIDE RECORDS SUMMARY | 2024-06-14 23:23 | XMS_ITS | Encounter Summary ---
Author Organization [facility] Healthcare Address [address] [place] [address] Care Team Providers Care Assistant Associate Full Professor Name Role Phone Criss Blanco MD Unavailable Lashay Downs RN Unavailable Unavailab Duke Goodwin RN Unavailable UnavailNgozi Husain MD Unavailable [phone] Jose Roberto Marx MD Unavailable [phone] Grey Tomas MD Primary Care Provider [phone] Encounter Details Date Type Department Care Team (Latest Contact Info) Description 10/02/2023 8:21 AM CDT - 10/02/2023 11:59 PM CDT Hospital Encounter [facility] [address] [place] [address] Cough, unspecified type Discharge Disposition: Discharge to [...] on file 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 AG: DIANA Report ID: [id number] Reading Location: [id number] Carlos Perez MD IMG XR PROCEDURES Final Result documented in this encounter Visit Diagnoses Diagnosis Cough, unspecified type documented in this encounter Care Teams Assistant Associate Full Professor Relationship Specialty Start Date End Date Grey Tomas MD PCP - General Family Practice 07/27/22 [place] [address] [facility] [address] [place] [address] Rheumatology 02/21/17 Lashay Dwons, RN Registered Nurse Pain Management 06/17/17 Duke Do, RN Registered Nurse 09/09/17 Ngozi Petty MD Radiation Oncologist Radiation Oncology 02/05/19 Jose Roberto Marx MD Referring Physician Otolaryngology 02/05/19 documented as of this encounter
--- OUTSIDE RECORDS SUMMARY | 2024-06-14 23:23 | XMS_ITS ---
Author Organization [facility] Address [address] [place] [address] Care Team Providers Care Vinyl Hanger Name Role Phone Criss Blanco MD Unavailable Lashay Downs RN Unavailable Unavailab Duke Goodwin RN Unavailable UnavailNgozi Husain MD Unavailable [phone] Jose Roberto Marx MD Unavailable [phone] Grey Tomas MD Primary Care Provider [phone] Active Problems Problem Noted Date Diagnosed Date Non-seasonal allergic rhinitis 11/26/2023 Assessment & Plan (11/26/2023 3:48 PM CDT): Continue montelukast 10 mg once daily OTC antihistamine daily Avoid triggers Saline nasal rinses Subdural hematoma 02/05/2023 Chronic panethmoidal sinusitis 01/31/2023 SDH (subdural hematoma) 07/01/2022 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 Assessment & Plan (04/18/2021 11:46 AM DETECTIVE YOUTH BUREAU): No evidence of disease today. However he [...] CDT): 75 yo M with a h/o [id number] TVC SCCA s/p KTP laser, presenting with new right TVC lesions concerning for malignancy. Plan to proceed to the OR for biopsy and laser treatment of the new right TVC lesions. Assessment & Plan (08/09/2020 3:55 PM DETECTIVE YOUTH BUREAU): No evidence of disease on examination today. Continue routine surveillance. Assessment & Plan (05/20/2020 10:03 AM DETECTIVE YOUTH BUREAU): No evidence of disease on examination today. Continue routine surveillance. 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 Assessment & Plan (06/23/2019 11:47 AM DETECTIVE YOUTH BUREAU): His larynx looks clean after KTP laser treatment. 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 I would like to continue routine observation every 8 weeks. Assessment & Plan (05/12/2019 11:46 AM DETECTIVE YOUTH BUREAU): The leukoplakia of the anterior right true [...] proceed. Assessment & Plan (04/07/2019 1:25 PM DETECTIVE YOUTH BUREAU): There are 2 small punctate areas of [...] 07/01/2018 Assessment & Plan (07/01/2018 2:08 PM DETECTIVE YOUTH BUREAU): Lifelong 'upset stomachj this relieved by adding [...] were normal Chronic pansinusitis 01/09/2017 long term care phlebotomist use of drug 11/21/2016 Assessment & Plan (02/21/2017 10:12 AM CDT): Will continue to monitor the patient with routine labs. Assessment & Plan (11/21/2016 9:17 AM CDT): Will continue to monitor the patient with routine labs. 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 Treatments may have been administered in another system. Lifetime Dose Tracking * Chemical Lifetime Dose Automatic Entry Manual Entr y Fluoro Time 40.382 minutes 40.382 minutes 0 minutes Air kerma at the reference point (Ka,r) 2,371.47 mGy 2 ,371.47 mGy 0 mGy DLP 5,625 mGycm 5,625 mGycm 0 mGycm
--- OUTSIDE RECORDS SUMMARY | 2024-06-14 23:23 | XMS_ITS | Encounter Summary ---
Author Organization [facility] Healthcare Address [address] [place] [address] Care Team Providers Care Baby Registry Sales Consultant Name Role Phone Criss Blanco MD Unavailable Lashay Downs RN Unavailable Unavailab Duke Goodwin RN Unavailable UnavailNgozi Husain MD Unavailable [phone] Jose Roberto Marx MD Unavailable [phone] Grey Tomas MD Primary Care Provider [phone] Encounter Details Date Type Department Care Team (Latest Contact Info) Description 10/23/2023 11:24 AM CDT - 10/23/2023 11:59 PM CDT Hospital Encounter [facility] [address] [place] [id number] Acute cough Discharge Disposition: Discharge to home [...] file 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 KR: KERI Report ID: [id number] Reading Location: [id number] Claire Loyd POWER EQUIPMENT TECHNOLOGY INSTRUCTOR IMG XR PROCEDURES Fin al Result documented in this encounter Visit Diagnoses Diagnosis Acute cough documented in this encounter Additional Health Concerns Infection Onset Date Last Indicated Resolved Time COVID: Suspected 10/23/2023 10/23/2023 10/24/2023 3:06 AM CDT documented as of this encounter Care Teams Baby Registry Sales Consultant Relationship Specialty Start Date End Date Grey Tomas MD PCP - General Family Practice 07/27/22 [place] [address] [place] [address] Rheumatology 02/21/17 Lashay Downs, RN Registered Nurse Pain Management 06/17/17 Duke Do, RN Registered Nurse 09/09/17 Ngozi Petty MD Radiation Oncologist Radiation Oncology 02/05/19 Jose Roberto Marx MD Referring Physician Otolaryngology 02/05/19 documented as of this encounter
--- OUTSIDE RECORDS SUMMARY | 2024-06-14 23:23 | XMS_ITS | Referral Summary ---
Author Organization [facility] Address [address] [place] [address] Care Team Providers Care Securities Broker Name Role Phone Criss Blanco MD Unavailable Lashay Downs RN Unavailable Unavailab Duke Goodwin RN Unavailable UnavailNgozi Husain MD Unavailable [phone] Jose Roberto Marx MD Unavailable [phone] Grey Tomas MD Primary Care Provider [phone] Allergies Active Allergy Reactions Criticality Noted Date [...] (5 mg total) by mouth early childhood worker before breakfast Active omeprazole (PriLOSEC) 40 mg [...] (05/01/2022): Added automatically from request for surgery [id number] Lesion of vocal fold 04/25/2022 Overview (04/25/2022): Added automatically from request for surgery [id number] Adenomatous polyp of colon 04/04/2022 Pollard's esophagus [...] surveillance. Assessment & Plan (04/18/2021 11:46 AM OUTSOLE LEVELER): No evidence of disease today. However he [...] CDT): 75 yo M with a h/o [id number] TVC SCCA s/p KTP laser, presenting with new right TVC lesions concerning for malignancy. Plan to proceed to the OR for biopsy and laser treatment of the new right TVC lesions. Assessment & Plan (08/09/2020 3:55 PM OUTSOLE LEVELER): No evidence of disease on examination today. Continue routine surveillance. Assessment & Plan (05/20/2020 10:03 AM OUTSOLE LEVELER): No evidence of disease on examination today. Continue routine surveillance. 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 Assessment & Plan (06/23/2019 11:47 AM OUTSOLE LEVELER): His larynx looks clean after KTP laser treatment. 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 I would like to continue routine observation every 8 weeks. Assessment & Plan (05/12/2019 11:46 AM OUTSOLE LEVELER): The leukoplakia of the anterior right true [...] proceed. Assessment & Plan (04/07/2019 1:25 PM OUTSOLE LEVELER): There are 2 small punctate areas of [...] 07/01/2018 Assessment & Plan (07/01/2018 2:08 PM OUTSOLE LEVELER): Lifelong 'upset stomachj this relieved by adding [...] chest imaging were normal Chronic pansinusitis 01/09/2017 superintendent container terminal use of drug 11/21/2016 Assessment & Plan (02/21/2017 10:12 AM CDT): Will continue to monitor the patient with routine labs. Assessment & Plan (11/21/2016 9:17 AM CDT): Will continue to monitor the patient with routine labs. 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 Medical Devices Implanted Type Area Chief Estimator Device Identifier Shelf Expiration Date Model / Serial / Lot Movile Particle Embolization Pre Filled Foam Vial 2ml Microsphere Contour 150-250um Polyvinyl Alcohol [id number] - [id number] Implanted:Qty: 1 on 02/05/2023 at [facility] [employer] Eliza 08/21/2025 [id number] / / [id number] [employer] Coil Embolization Tornado Microcoil [place] Od3-2mm .018 In Catheter [id number] - [id number] Implanted:Qty: 1 on 02/05/2023 at [facility] [employer] 08/07/2027 [id number] / / [id number] [employer] Angio-Seal Vip 6fr Closere Device [id number] - [id number] Implanted:Qty: 1 on 02/05/2023 at [facility] [employer] 08/01/2023 [id number] / / [id number] Procedures Procedure Name Priority Date/Time Associated Diagnosis Comments CT ABDOMEN PELVIS W CONTRAST ED 05/20/2018 1:12 AM OUTSOLE LEVELER from Last 3 Months or Most Recently Relevant to Health Maintenance Results * CT Abdomen Pelvis W Contrast (05/20/2018 1:12 AM OUTSOLE LEVELER) Anatomical Region Laterality Modality Body N/A Computed Tomogra phy 05/20/2018 7:08 AM OUTSOLE LEVELER Impressions 05/20/2018 7:24 AM OUTSOLE LEVELER 1. ??PERSISTENT 4 MM DISTAL RIGHT URETER STONE ALTHOUGH HYDROURETERONEPHROSIS ON THE RIGHT HAS C4 IMPROVED COMPARED WITH THE PRIOR EXAMINATION. ??THERE IS PERSISTENT LEFT LOWER POLE HYDRONEPHROSIS. ??NONOBSTRUCTING STONES WITHIN THE KIDNEYS PERSIST. 2. ??DEVELOPMENT OF MILD SPLENOMEGALY. 3. ??OTHER NONACUTE FINDINGS ABOVE. REPORT BY [facility] 05/20/2018 AT 2:17 AM. Electronically signed by: Antelmo Travis 05/20/2018 7:[address] ABDOMEN PELVIS W CONTRAST HISTORY: Abd [...] Recently Relevant to Health Maintenance Insurance MEDICARE [facility] Address: [facility] [address] [place] [address] [employer] INSURANCE COMPANY MEDICARE Sprig Advance Directives For more information, please contact: [phone] Documents on File Type Date Recorded Patient Senior Systems Engineer Expl anation ADVANCE DIRECTIVE 03/09/2019 6:43 AM * Full Code (Latest Code Status on File) Date Activated Date Inactivated Comments 02/05/2023 11:14 AM 02/06/2023 5:10 PM * Full Code Date Activated Date Inactivated Comments 07/01/2022 9:36 PM 07/03/2022 2:45 PM Care Teams Securities Broker Relationship Specialty Start Date End Date Grey Tomas MD PCP - General Family Practice 07/27/22 [place] [address] [facility] [address] [place] [address] Rheumatology 02/21/17 Lashay Downs, RN Registered Nurse Pain Management 06/17/17 Duke Do, RN Registered Nurse 09/09/17 Ngozi Petty MD Radiation Oncologist Radiation Oncology 02/05/19 Jose Roberto Marx MD Referring Physician Otolaryngology 02/05/19
--- OUTSIDE RECORDS SUMMARY | 2024-06-14 23:23 | XMS_ITS | Encounter Summary ---
Author Organization [facility] Healthcare Address [address] [place] [address] Care Team Providers Care Road Worker Name Role Phone Criss Blanco MD Unavailable Lashay Downs RN Unavailable Unavailab Duke Goodwin RN Unavailable UnavailNgozi Husain MD Unavailable [phone] Jose Roberto Marx MD Unavailable [phone] Grey Tomas MD Primary Care Provider [phone] Reason for Referral * Procedure (Routine) - Closed Specialty Diagnoses / Procedures Referred By Contac t Referred To Contact Diagnoses Cough, unspecified type Procedures Pulmonary Function Test -[facility]; Complete/Full (Spirometry, Pleth and DLCO) Carlos Perez MD [address] [place] [address] Phone: tel: fax: Referral ID Status Reason Start Date Expiration Date Visits Re quested Visits Authorized [id number] Closed 09/24/2023 10/23/2024 1 1 Reason for Visit * Reason Comments Shortness of Breath Wheezing Cough * Consultation (Routine) - Closed Specialty Diagnoses / Procedures Referred By Contac t Referred To Contact Pulmonary Disease / Pulmonology Diagnoses Wheezing Cough, unspecified type Dyspnea, unspecified type Chronic sinusitis, unspecified location Allergy, initial encounter Grey Tomas MD Phone: tel: fax: Carlos Perez MD [address] [place] [address] [address] [place] [address] Phone: tel: fax: Referral ID Status Reason Start Date Expiration Date V isits Requested Visits Authorized [id number] Closed Specialty Services Required 09/18/2023 10/17/2024 1 1 Encounter Details Date Type Department Care Team (Late st Contact Info) Description 09/24/2023 11:15 AM CDT Office Visit [facility] Medical Group Pulmonary at [address] [place] [address] Carlos Perez MD [address] [place] [address] [address] [place] [address] Cigarette nicotine dependence in remission [...] on file 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 Cough, unspecified type - multiple possible etiologies including allergies with postnasal drip including GERD and reflux - will start with a chest x-ray and pulmonary function testing - continue other therapies as below - Ambulatory referral to Pulmonology - X-ray chest 2 views; Future - Pulmonary Function Test -[facility]; Complete/Full (Spirometry, Pleth and DLCO); Future [...] stairs Contact your local community or senior [place] for information on exercise, fall prevention programs, [...] PM T: ??10/03/2023 9:57 PM Report ID: [id number] Reading Location: ??[id number] Procedure Note Steven Hernández MD - 10/03/2023 [...] Steven Hernández M.D. AG: DIANA Report ID: [id number] Reading Location: [id number] Carlos Perez MD IMG XR PROCEDURES Final Result * Pulmonary Function Test -[facility]; Complete/Full (Spirometry, Pleth and DLCO) (10/02/2023 [...] 09/24/2023 documented in this encounter Care Teams Road Worker Relationship Specialty Start Date End Date Grey Tomas MD PCP - General Family Practice 07/27/22 [place] [address] [facility] [address] [place] [address] Rheumatology 02/21/17 Lashay Downs, RN Registered Nurse Pain Management 06/17/17 Duke Do, RN Registered Nurse 09/09/17 Ngozi Petty MD Radiation Oncologist Radiation Oncology 02/05/19 Jose Roberto Marx MD Referring Physician Otolaryngology 02/05/19 documented as of this encounter
--- OUTSIDE RECORDS SUMMARY | 2024-06-14 23:23 | XMS_ITS | Encounter Summary ---
Author Organization [facility] Healthcare Address [address] [place] [address] Care Team Providers Care Paint Roller Covers Supervisor Name Role Phone Criss Blanco MD Unavailable Lashay Downs RN Unavailable Unavailab Duke Goodwin RN Unavailable UnavailNgozi Husain MD Unavailable [phone] Jose Roberto Marx MD Unavailable [phone] Grey Tomas MD Primary Care Provider [phone] Encounter Details Date Type Department Care Team (Late st Contact Info) Description 12/27/2023 Telephone [facility] Medical Group Pulmonary at [address] [place] [address] Carlos Perez MD [address] [place] [address] [address] [place] [address] Social History Tobacco Use Types [...] on file 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 documented as of this encounter Visit Diagnoses Not on filedocumented in this encounter Care Teams Paint Roller Covers Supervisor Relationship Specialty Start Date End Date Grey Tomas MD PCP - General Family Practice 07/27/22 [place] [address] [facility] [address] [place] [address] Rheumatology 02/21/17 Lashay Downs, RN Registered Nurse Pain Management 06/17/17 Duke Do, RN Registered Nurse 09/09/17 Ngozi Petty MD Radiation Oncologist Radiation Oncology 02/05/19 Jose Roberto Marx MD Referring Physician Otolaryngology 02/05/19 documented as of this encounter
--- OUTSIDE RECORDS SUMMARY | 2024-06-14 23:23 | XMS_ITS | Encounter Summary ---
Author Organization [facility] Healthcare Address [address] [place] [address] Care Team Providers Care Gatehouse Attendant Name Role Phone Criss Blanco MD Unavailable Lashay Downs RN Unavailable Unavailab Duke Goodwin RN Unavailable UnavailNgozi Husain MD Unavailable [phone] Jose Roberto Marx MD Unavailable [phone] Grey Tomas MD Primary Care Provider [phone] Reason for Visit * Reason Comments 2 mo F/U PFT, and CXR Encounter Details Date Type Department Care Team (Late st Contact Info) Description 11/26/2023 11:00 AM CDT Office Visit [facility] Medical Group Pulmonary at [address] [place] [address] Zelda Sánchez, JOSEPH [address] [place] [address] [address] [place] [address] Chronic cough (Primary Dx); Gastroesophageal reflux disease [...] on file 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 He was then evaluated at [facility] and prescribed tessalon and albuterol MDI. He [...] strong scents, he has had to avoid [facility] because of the perfume worn by the women. 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[facility]) Assessment & Plan: He is due for [...] on stairs Contact your local community or [facility] for information on exercise, fall prevention [...] 11/03/2023 added in this encounter Care Teams Gatehouse Attendant Relationship Specialty Start Date End Date Grey Tomas MD PCP - General Family Practice 07/27/22 [place] [address] [address] Rheumatology 02/21/17 Lashay Downs, RN Registered Nurse Pain Management 06/17/17 Duke Do, RN Registered Nurse 09/09/17 Ngozi Petty MD Radiation Oncologist Radiation Oncology 02/05/19 Jose Roberto Marx MD Referring Physician Otolaryngology 02/05/19 documented as of this encounter
--- OUTSIDE RECORDS SUMMARY | 2024-06-14 23:23 | XMS_ITS | Encounter Summary ---
Author Organization [facility] Address [address] [place] [address] Phone Care Team Providers Care First Helper Name Role Phone Criss Blanco MD Unavailable Lashay Downs RN Unavailable Unavailab Duke Goodwin RN Unavailable UnavailNgozi Husain MD Unavailable [phone] Jose Roberto Marx MD Unavailable [phone] Grey Tomas MD Primary Care Provider [phone] Reason for Referral * Consultation (Routine) - Closed Specialty Diagnoses / Procedures Referred By Conthermila forrest Referred To Contact Neurology Diagnoses Subdural hematoma (HCC) Intractable episodic cluster headache Baldo Bailey PA [address] [place] [address] Phone: tel: fax: [facility] [address] [facility] [address] [place] [address] Phone: tel: fax: Referral ID Status Reason Start Date Expiration Date V isits Requested Visits Authorized [id number] Closed Specialty Services Required 07/09/2023 08/07/2024 3 3 Question Answer Please select the performing region: [facility] [[id number]] Please select the performing department: [facility] [[id number]] # of visits: 3 Comments Referral for headaches Eval and treat ARCHITECT Reason for Visit * Consultation (Routine) - Closed Specialty Diagnoses / Procedures Referred By Alcira forrest Referred To Contact Neurosurgery Diagnoses Subdural hematoma (HCC) Grey Tomas MD Phone: tel: fax: [facility] (All Locations) Referral ID Status Reason Start Date Expiration Date V isits Requested Visits Authorized [id number] Closed Specialty Services Required 04/12/2023 05/11/2024 365 365 Encounter Details Date Type Department Care Team (Late st Contact Info) Description 07/09/2023 1:15 PM AWS ARCHITECT Office Visit [facility] Neurosurgery [facility] [address] [place] [address] Baldo Bailey PA [address] [place] [address] Intractable episodic cluster headache (Primary Dx); Subdural [...] on file Legal Sex Male 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 Gender Identity Not on file Sexual Orientation Not on file Occupation Industry Job Start Date Job End Date Retired Not on file Not on file Not on file documented as of this encounter Last Filed Vital Signs Vital Sign Reading Time Taken Comments Blood Pressure 114/85 07/09/2023 1:02 PM AWS ARCHITECT Pulse 78 07/09/2023 1:02 PM AWS ARCHITECT Temperature - - Respiratory Rate - - Oxygen Saturation - - Inhaled Oxygen Concentration - - Weight 98 kg (216 lb) 07/09/2023 1:02 PM AWS ARCHITECT Height 185.4 cm (6' 1 ) 07/09/2023 1:02 PM AWS ARCHITECT Body Mass Index 28.5 07/09/2023 1:02 PM AWS ARCHITECT documented in this encounter Progress Notes * [...] 1 tablet (5 mg total) by mouth paper cleaner before breakfast, Disp: , Rfl: hydrOXYchloroQUINE (PLAQUENIL) [...] turgor and color. Cap refills normal limits. Resident Care Associate strength is intact and equal. REVIEW OF [...] CTs at this time. Baldo Bailey PA-C ARCHITECT documented in this encounter Plan of [...] on stairs Contact your local community or [facility] for information on exercise, fall [...] 07/09/2023 documented in this encounter Care Teams First Helper Relationship Specialty Start Date End Date Grey Tomas MD PCP - General Family Practice 07/27/22 [place] [address] [facility] [address] [place] [address] Rheumatology 02/21/17 Lashay Downs, GAY Registered Nurse Pain Management 06/17/17 Duke Do, GAY Registered Nurse 09/09/17 Ngozi Petty MD Radiation Oncologist Radiation Oncology 02/05/19 Jose Roberto Marx MD Referring Physician Otolaryngology 02/05/19 documented as of this encounter
--- OUTSIDE RECORDS SUMMARY | 2024-06-14 23:23 | XMS_ITS | Encounter Summary ---
Author Organization [facility] Healthcare Address [address] [place] [address] Care Team Providers Care Forest Products Teacher Name Role Phone Criss Blanco MD Unavailable Lashay Downs RN Unavailable Unavailab Duke Goodwin RN Unavailable UnavailNgozi Husain MD Unavailable [phone] Jose Roberto Marx MD Unavailable [phone] Grey Tomas MD Primary Care Provider [phone] Reason for Visit * Reason Comments Cough Productive cough, na bryanna drip/discharge, body aches, headaches, started on 10-21-23 Encounter Details Date Type Department Care Team (Late st Contact Info) Description 10/23/2023 10:15 AM CDT Office Visit [facility] Medical Group Convenient Care at [address] [place] [address] Claire Loyd, JOSEPH [address] [place] [address] Upper respiratory tract infection, unspecified [...] file 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 Thank you for choosing [facility]! It was my pleasure to see you [...] tenderness or frontal sinus tenderness. Mouth/Throat: Lips: Portis. Mouth: Mucous membranes are moist. Pharynx: Oropharynx [...] PM T: ??10/23/2023 1:14 PM Report ID: [id number] Reading Location: ??[id number] Procedure Note Adryan Gary MD - 10/23/2023 [...] Adryan Gary M.D. KR: KERI Report ID: [id number] Reading Location: [place] [address] Claire Loyd BED CONTROL SPECIALIST IMG XR PROCEDURES Fin al Result * POC Influenza A/B, COVID-19 antigen (10/23/2023 10:34 AM CDT) Influenza A Ag, POC Negative Negative [facility] Influenza B Ag, POC Negative Negative [facility] COVID-19 Ag POC Presumptive Negative Presumptive Negative, Invalid [facility] Nasopharyngeal 10/23/2023 10 :34 AM CDT Claire Loyd BED CONTROL SPECIALIST POINT OF CARE TEST OR DERABLES Final Result [facility] [address] [address] * POCT rapid strep A (10/23/2023 10:25 [...] a day Therapy completed 07/24/2023 10/23/2023 rizatriptan KEG FILLER (MAXALT-KEG FILLER) 10 mg disintegrating tabletIndications:Migrain e Take 1 [...] documented as of this encounter Care Teams Forest Products Teacher Relationship Specialty Start Date End Date Grey Tomas MD PCP - General Family Practice 07/27/22 [place] [address] [facility] [address] [place] [address] Rheumatology 02/21/17 Lashay Downs, RN Registered Nurse Pain Management 06/17/17 Duke Do, GAY Registered Nurse 09/09/17 Ngozi Petty MD Radiation Oncologist Radiation Oncology 02/05/19 Jose Roberto Marx MD Referring Physician Otolaryngology 02/05/19 documented as of this encounter
--- OUTSIDE RECORDS SUMMARY | 2024-06-14 23:23 | XMS_ITS | Encounter Summary ---
Author Organization [facility] Healthcare Address [address] [place] [address] Care Team Providers Care Fruit Thinner Machine Operator Name Role Phone Criss Blanco MD Unavailable Lashay Downs RN Unavailable Unavailab Duke Goodwin RN Unavailable UnavailNgozi Husain MD Unavailable [phone] Jose Roberto Marx MD Unavailable [phone] Grey Tomas MD Primary Care Provider [phone] Reason for Visit * Consultation (Routine) - Closed Specialty Diagnoses / Procedures Referred By Alcira forrest Referred To Contact Neurology Diagnoses Cerebral infarction, unspecified mechanism (HCC) Grey Tomas MD Phone: tel: fax: Samuel Stephens MD [address] [place] [address] [address] [place] [address] Phone: tel: fax: Referral ID Status Reason Start Date Expiration Date V isits Requested Visits Authorized [id number] Closed Specialty Services Required 07/18/2023 08/16/2024 1 1 Encounter Details Date Type Department Care Team (Late st Contact Info) Description 08/16/2023 9:45 AM CDT Office Visit [facility] [address] [facility] [address] [place] [address] Samuel Stephens MD [address] [place] [address] [address] [place] [address] Chronic migraine without aura without status migrainosus, [...] on file 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 His headache was better until February 2023 when he had middle meningeal artery embolization secondary to subdural hematoma. He had bilateral middle meningeal artery embolization in 02/2023 at [place]. He started to have headache. He has [...] chronic subdural hematoma. He was transferred to [facility] on 07/01/2022. He was discharged on [...] OTHER MEDICAL hemorroids; Comments: Had done at [facility] [place] HX OTHER MEDICAL bladder infection HX OTHER MEDICAL kidney stone Low back pain Migraine Rheumatoid arthritis (HCC) Allergies Allergen Reactions Perfume Swelling, Cough and Shortness of breath Mold Unknown Augmentin [Amoxicillin-Pot Clavulanate] Dizziness Cat Dander Eye irritation Hydrocodone Itching Vicodin [Hydrocodone-Acetaminophen] Itching Current Outpatient Medications Medication Sig Dispense Refill finasteride (PROSCAR) 5 mg tablet Take 1 tablet (5 mg total) by mouth dock operations supervisor before breakfast guaiFENesin-codeine (GUAITUSS AC) liquid 100-10 [...] (Patient not taking: Reported on 08/16/2023) rizatriptan FORESTRY AIDE (MAXALT-FORESTRY AIDE) 10 mg disintegrating tablet Take 1 tablet [...] vit a/vit c/vit e/zinc/copper, diphenhydramine, and rizatriptan vice president of recruiting. Family History Adopted: Yes Problem Relation Age of Onset Other Other adopted Other Other adopted Anesthesia problems Neg Hx Social History Socioeconomic History Marital status: Spouse name: Not on file Number of children: Not on file Years of education: Not on file Highest education level: Not on file Occupational History Occupation: [employer] Tobacco Use Smoking status: Former Smoker Packs/day: [...] status migrainosus, not intractable (Primary) - rizatriptan FORESTRY AIDE (MAXALT-FORESTRY AIDE) 10 mg disintegrating tablet; Take 1 tablet [...] on stairs Contact your local community or [facility] for information on exercise, fall prevention [...] 08/16/2023 documented in this encounter Care Teams Fruit Thinner Machine Operator Relationship Specialty Start Date End Date Grey Tomas MD PCP - General Family Practice 07/27/22 [place] [address] [facility] [address] [place] [address] Rheumatology 02/21/17 Lashay Downs, RN Registered Nurse Pain Management 06/17/17 Duke Do, RN Registered Nurse 09/09/17 Ngozi Petty MD Radiation Oncologist Radiation Oncology 02/05/19 Jose Roberto Marx MD Referring Physician Otolaryngology 02/05/19 documented as of this encounter
--- OUTSIDE RECORDS SUMMARY | 2024-06-14 23:24 | XMS_ITS | Encounter Summary ---
Author Organization [facility] Address [address] [place] [address] Phone Care Team Providers Care Pineapple Plantation Manager Name Role Phone Criss Blanco MD Unavailable Lashay Downs RN Unavailable Unavailab Duke Goodwin RN Unavailable UnavailNgozi Husain MD Unavailable [phone] Jose Roberto Marx MD Unavailable [phone] Grey Tomas MD Primary Care Provider [phone] Reason for Visit * Reason Comments voice follow up Encounter Details Date Type Department Care Team (Late st Contact Info) Description 02/27/2023 4:00 PM CDT Office Visit [facility] [address] [facility] [address] [place] [address] Nakita Herrera MD [address] [place] [address] Dysplasia of larynx (Primary Dx) [...] file Legal Sex Male 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 He was recently at [facility] for a subdural hematoma. 02/06/23 Discharge summary [...] weeks. DISPOSITION: 6-8 weeks Dariana Herrera MD Tool And Die Maker Level Five [facility] Division of [...] Primary documented in this encounter Care Teams Pineapple Plantation Manager Relationship Specialty Start Date End Date Grey Tomas MD PCP - General Family Practice 07/27/22 [place] [address] [place] [address] Rheumatology 02/21/17 Lashay Downs, RN Registered Nurse Pain Management 06/17/17 Duke Do, RN Registered Nurse 09/09/17 Ngozi Petty MD Radiation Oncologist Radiation Oncology 02/05/19 Jose Roberto Marx MD Referring Physician Otolaryngology 02/05/19 documented as of this encounter
--- OUTSIDE RECORDS SUMMARY | 2024-06-14 23:24 | XMS_ITS | Encounter Summary ---
Author Organization [facility] Address [address] [place] [address] Phone Care Team Providers Care Vice President Network Name Role Phone Criss Blanco MD Unavailable Lashay Downs RN Unavailable Unavailab Duke Goodwin RN Unavailable UnavailNgozi Husain MD Unavailable [phone] Jose Roberto Marx MD Unavailable [phone] Grey Tomas MD Primary Care Provider [phone] Encounter Details Date Type Department Care Team (Late st Contact Info) Description 04/12/2023 Telephone [facility] [address] [facility] [address] [place] [address] Baldo Bailey PA [address] [place] [address] Social History Tobacco Use Types [...] on file 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 Please come the [facility]; Radiology at 11:50 am for your HCT. Once complete, please come to [address]; [address] at 1:15 pmto see Baldo. If you have any questions please reach out through etouches or call our office at [phone]. Thank you! etouches message and appt reminders mailed. M TUNNEL FEEDER * Telephone Encounter - Che Escobar - 04/12/2023 10:28 AM CST ----- Message from ZOILA Murphy sent at 04/10/2023 2:44 PM STEAM TUNNEL FEEDER ----- Regarding: repeat CT head scan in three months Can we please arrange a repeat CT head scan and inperson eval in three months? M TUNNEL FEEDER documented in this encounter Plan of Treatment [...] on filedocumented in this encounter Care Teams Vice President Network Relationship Specialty Start Date End Date Grey Tomas MD PCP - General Family Practice 07/27/22 [place] [address] [facility] [address] [place] [address] Rheumatology 02/21/17 Lashay Downs, RN Registered Nurse Pain Management 06/17/17 Duke Do, RN Registered Nurse 09/09/17 Ngozi Petty MD Radiation Oncologist Radiation Oncology 02/05/19 Jose Roberto Marx MD Referring Physician Otolaryngology 02/05/19 documented as of this encounter
--- OUTSIDE RECORDS SUMMARY | 2024-06-14 23:24 | XMS_ITS | Encounter Summary ---
Author Organization [facility] Address [address] [place] [address] Phone Care Team Providers Care Mangle Tender Cloth Name Role Phone Criss Blanco MD Unavailable Lashay Downs RN Unavailable Unavailab Duke Goodwin RN Unavailable UnavailNgozi Husain MD Unavailable [phone] Jose Roberto Marx MD Unavailable [phone] Grey Tomas MD Primary Care Provider [phone] Reason for Referral * MRI/CAT/PET Scan (Routine) - Closed Specialty Diagnoses / Procedures Referred By Contac t Referred To Contact Radiology Diagnoses Subdural hematoma (HCC) Procedures CT Head WO Contrast Baldo Bailey PA [address] [place] [address] Phone: tel: fax: [place] [address] [place] [address] Referral ID Status Reason Start Date Expiration Date Visits Re quested Visits Authorized [id number] Closed 03/08/2023 04/06/2024 1 1 Encounter Details Date Type Department Care Team (Late st Contact Info) Description 03/08/2023 Orders Only [facility] Neurosurgery [address] [facility] 6th [place] [address] [place] [address] Baldo Bailey, ZOILA [address] [place] [address] Subdural hematoma (HCC) (Primary Dx) Social History [...] on file Legal Sex Male 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 Electronically signed by: Indigo Mckenzie M.D. Narrative 04/10/2023 12:43 PM SALES REPRESENTATIVE PUBLICATIONS EXAMINATION: CT head without contrast HISTORY: Subdural [...] hemorrhage documented in this encounter Care Teams Mangle Tender Cloth Relationship Specialty Start Date End Date Grey Tomas MD PCP - General Family Practice 07/27/22 [place] [address] [facility] [address] [place] [address] Rheumatology 02/21/17 Lashay Downs, RN Registered Nurse Pain Management 06/17/17 Duke Do, RN Registered Nurse 09/09/17 Ngozi Petty MD Radiation Oncologist Radiation Oncology 02/05/19 Jose Roberto Marx MD Referring Physician Otolaryngology 02/05/19 documented as of this encounter
--- OUTSIDE RECORDS SUMMARY | 2024-06-14 23:24 | XMS_ITS | Encounter Summary ---
Author Organization [facility] Healthcare Address [address] [place] [address] Care Team Providers Care Banquet Waiter/Waitress Name Role Phone Criss Blanco MD Unavailable Lashay Downs RN Unavailable Unavailab Duke Goodwin RN Unavailable UnavailNgozi Husain MD Unavailable [phone] Jose Roberto Marx MD Unavailable [phone] Grey Tomas MD Primary Care Provider [phone] Reason for Referral * Diagnostic Imaging (Routine) - Closed Specialty Diagnoses / Procedures Referred By Contac t Referred To Contact Radiology Diagnoses Subdural hematoma (HCC) Procedures IR Permanent Occlusion or Embolization AUDITOR APPRAISER Aston Grubbs MD [address] [facility] [address] [place] [address] Phone: tel: fax: [address] [address] Referral ID Status Reason Start Date Expiration Date Visits Re quested Visits Authorized [id number] Closed 01/31/2023 03/01/2024 1 1 Reason for Visit * Auth/Cert (Routine) Specialty Diagnoses / Procedures Referred By Contac t Referred To Contact Diagnoses Subdural hematoma (HCC) Procedures n/a Referral ID Status Reason Start Date Expiration Date Visits Re quested Visits Authorized [id number] 1 1 Encounter Details Date Type Department Care Team (Late st Contact Info) Description 02/05/2023 5:11 PM CDT - 02/06/2023 1:10 PM CDT Hospital Encounter [facility] [address] [place] [address] Aston Grubbs MD [address] [place] [address] Juan Ramon Martin Dusty, GRAPPLE YARDER OPERATOR [address] [place] [address] Comfort Craven MD PhD [address] [place] [address] Subdural hematoma (HCC) Discharge Disposition: Discharge to [...] on file 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 Last bowel movement was on fire suppression captain. Koenig removed on 02/06, now voiding [...] 1 tablet (5 mg total) by mouth seed cleaning 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 For: enlarged prostate with urination [...] Grubbs MD Cerebrovascular/Endovascular & Skull Base Tumor Inspector Exhaust EmissionsHelp Desk Associate of Neurological Surgery, Radiology and Neurology [facility], [place], [facility] Office: [phone] documented in this encounter Discharge Instructions * [...] nurse coordinator): After hours emergency: please contact [facility] at and ask to speak to the interventional neuroradiology fellow studio operations engineer in charge. documented in this encounter Medications at Time of Discharge finasteride (PROSCAR) 5 mg tabletIndications :benign prostatic hyperplasia with lower urinary tract sx Take 1 tablet (5 mg total) by mouth seed cleaning 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 multivitamin capsuleIndication s:Vitamin [...] 5 mg oral Daily - 0600 multivit tvqsgjgx-dmdc-LV-calcium (THERA-M) tablet 1 tablet 1 tablet oral [...] access site flat, [place] [address] SDU Diet: Advance as tolerated Antibiotics: NA Activity Restrictions: HOB at 30 degrees Imaging required: None If there are any issues or questions, please page Milan Wright MD at [phone]. If it is after 6pm, please use the Neurosurgery Call pager at [phone] Milan Wright MD documented in this encounter [...] Post Procedure Note Attending: Aston Grubbs MD Director Market Research: Kirill Fox MD Sedation/Anesthesia: Anesthesia Medications: Medications [...] headaches. Procedure: IR PERMANENT OCCLUSION OR EMBOLIZATION AUDITOR APPRAISER Indications/History: 77 y.o. 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 Flank pain 04/04/2022 Gastroesophageal reflux disease without esophagitis 04/04/2022 Lumbar facet arthropathy 12/05/2021 Chronic bilateral low back pain without sciatica 12/05/2021 Chronic migraine without aura without status migrainosus, not intractable 08/03/2021 Dysphonia 10/06/2019 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 Dyspepsia 07/01/2018 DDD (degenerative disc disease), lumbar 09/10/2017 Chronic cough 01/09/2017 Chronic pansinusitis 01/09/2017 group home use of drug 11/21/2016 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 Calculus of kidney 07/23/2011 Seropositive rheumatoid arthritis of multiple sites ([facility]) ([facility]) 07/03/2011 Shortness of breath 12/26/2010 Headache 12/22/2009 Malignant neoplasm of prostate ([facility]) 1998 History of Sedation/Anesthesia Complications: No History of Difficult Airway: No PSH Past Surgical History: Procedure Laterality Date BICEPS TENODESIS Left COLONOSCOPY 03/14/2020 CYSTOSCOPY 2020 EAR SURGERY Left repair perforated eardrum KIDNEY STONE SURGERY LARYNGOSCOPY Right 01/09/2019 Direct laryngoscopy with biopsy LARYNGOSCOPY Right 02/16/2019 Suspension microlaryngoscopy with KTP laser photoablation Right vocal fold lesion LITHOTRIPSY 5 or 6 times - [id number] ORCHIECTOMY Right OTHER SURGICAL HISTORY 04/18/2020 Suspension [...] 1 tablet (5 mg total) by mouth seed cleaning 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, Disp: , Rfl: omeprazole (PriLOSEC) [...] infusion, 30 mL/hr, intravenous, Continuous, Lisa Martin, BURN TABLE OPERATOR, Last Rate: 30 mL/hr at 02/05/23 1137, [...] forearm and anatomical snuffbox Assessment: Samuel Sanchez [id number] 77 y.o. male with bilateral subdural hematoma [...] been discussed with the patient and/or their independent sales representative. All questions answered and they [...] Comments IR PERMANENT OCCLUSION OR EMBOLIZATION PERCUTANEOUS AUDITOR APPRAISER Schedule Routine, Read Routine (OP Routine) 02/05/2023 3:25 PM CDT Subdural hematoma (HCC) documented in this encounter Results * IR Permanent Occlusion or Embolization AUDITOR APPRAISER (02/05/2023 3:25 PM CDT) Anatomical Region Laterality [...] Catheter Penumbra 5 Fr Rosen Select Catheter [place] 1018 Microcatheter Synchro 2 014 microwire 5 [...] and were stored to PACS. A 5 Anguillan sheath was inserted over a 3 mm J wire and connected to a regulated pressurized infusion of heparinized saline. A 5 Fr MPD Envoy with Terumo Glidewire ??was used to attempt selection of the right common carotid artery and the left common carotid artery but could not be obtained. ??The 5-Anguillan MPD Envoy was removed. ??The 5 Fr [...] standard anatomical configuration. A coaxial assembly of [place] 1018 microcatheter and Synchro Select 014 microwire [...] the collateral to the ophthalmic artery. A [employer] Tornado 3/2-mm coil was prepared and loaded within the [place] 1018 microcatheter and deployed using saline flush technique with a 3 mL flush of saline under roadmap guidance. The [place] 1018 microcatheter was then withdrawn proximal to [...] standard anatomical configuration. A coaxial assembly of [place] 1018 microcatheter and Synchro Select 014 microwire [...] blush visualized. The previously prepared suspension of [employer] PVA 150-250 micron particles were injected into [...] Catheter Penumbra 5 Fr Rosen Select Catheter [place] 1018 Microcatheter Synchro 2 014 microwire 5 [...] and were stored to PACS. A 5 Anguillan sheath was inserted over a 3 mm J wire and connected to a regulated pressurized infusion of heparinized saline. A 5 Fr MPD Envoy with Terumo Glidewire was used to attempt selection of the right common carotid artery and the left common carotid artery but could not be obtained. The 5-Anguillan MPD Envoy was removed. The 5 Fr [...] standard anatomical configuration. A coaxial assembly of [place] 1018 microcatheter and Synchro Select 014 microwire [...] coil was prepared and loaded within the [place] 1018 microcatheter and deployed using saline flush technique with a 3 mL flush of saline under roadmap guidance. The [place] 1018 microcatheter was then withdrawn proximal to [...] standard anatomical configuration. A coaxial assembly of [place] 1018 microcatheter and Synchro Select 014 microwire [...] 02/05/2023 3:24 PM CDT 120 mL multivit hlickgkp-nbzi-PQ-calcium (THERA-M) tablet 1 tablet 1 tablet, oral, [...] - Provid er: Alicia Lindsey RN) multivit bmfavpjg-cqmu-JG-calcium (THERA-M) tablet 1 tablet 1 tablet, oral, [...] 02/06/2023 documented in this encounter Care Teams Banquet Waiter/Waitress Relationship Specialty Start Date End Date Grey Tomas MD PCP - General Family Practice 07/27/22 [place] [address] [facility] [address] [place] [address] Rheumatology 02/21/17 Lashay Downs, RN Registered Nurse Pain Management 06/17/17 Duke Do, RN Registered Nurse 09/09/17 Ngozi Petty MD Radiation Oncologist Radiation Oncology 02/05/19 Jose Roberto Marx MD Referring Physician Otolaryngology 02/05/19 documented as of this encounter
--- OUTSIDE RECORDS SUMMARY | 2024-06-14 23:24 | XMS_ITS | Encounter Summary ---
Author Organization [facility] Healthcare Address [address] [place] [address] Care Team Providers Care Plant Operator/Shift Supervisor Name Role Phone Criss Blanco MD Unavailable Lashay Downs RN Unavailable Unavailab Duke Goodwin RN Unavailable UnavailNogzi Husain MD Unavailable [phone] Jose Roberto Marx MD Unavailable [phone] Grey Tomas MD Primary Care Provider [phone] Reason for Visit * Auth/Cert (Routine) Specialty Diagnoses / Procedures Referred By Contac t Referred To Contact Diagnoses Subdural hematoma (HCC) Procedures n/a Referral ID Status Reason Start Date Expiration Date Visits Re quested Visits Authorized [id number] 1 1 Encounter Details Date Type Department Care Team (Late st Contact Info) Description 02/05/2023 1:18 PM CDT Anesthesia Event [facility] Neuro Interventional Radiology [address] [place] [address] Comfort Craven MD PhD [address] [place] [address] Juan Ramon Martin Dusty, BLOOD COLLECTOR [address] [place] [address] Anesthesia Record Procedure Summary Procedure Name Responsible Anesthesiologist Anesthesia Start Time Anesthesia Stop Time IR PERMANENT OCCLUSION OR EMBOLIZATION PERCUTANEOUS GPS NAVIGATION INSTALLER Comfort Craven MD PhD 02/05/23 1318 02/05/23 [...] Alona Kamara RN 02/06/23 1200 by Debbi Gresham, GAY [...] on file 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 Gender Identity Not on file Sexual Orientation Not on file Occupation Industry Job Start Date Job End Date Retired Not on file Not on file Not on file documented as of this encounter OR Notes * Anesthesia Postprocedure Evaluation - Comfort Craven MD PhD - 02/05/2023 4:10 PM CDT Patient: Samuel Sanchez Procedure Summary Date: 02/05/23 Room / Location: [facility] Neuro Interventional Radiology Anesthesia Start: 1318 Anesthesia Stop: 1545 Procedure: IR PERMANENT OCCLUSION OR EMBOLIZATION PERCUTANEOUS GPS NAVIGATION INSTALLER Diagnosis: Subdural hematoma (HCC) Subdural hematoma (HCC) [...] normothermic Nausea/Vomiting status: none Comments: [place] [address] step down No notable events documented. * Anesthesia Procedure Notes - Juan Ramon Martin CRNA - 02/05/2023 1:39 PM CDTAssociated Order(s): Airway Airway Patient location: OR Urgency: elective Indications for airway management: anesthesia Difficult airway: no Staff: Supervising provider: Comfort Craven MD PhD Placed by: BLOOD COLLECTOR: Juan Ramon Martin CRNA Emergent airway documentation: [...] and Planning Preoperative Evaluation Record Evaluation type/location: [facility] Planned procedure site: Radiology Date: 02/01/23 Anesthesia Evaluation Samuel Sanchez is a 77 y.o. male * No surgery found * HISTORY HPI Samuel Sanchez is a 77 y.o. male w/ notable PMHx of SCC of vocal cords, factor IV leiden,GERD who is being evaluated preoperatively prior to planned IR permanent Occlusion or embolization percutaneous GPS NAVIGATION INSTALLER for subdural hematoma Past Medical History Information obtained from: patient and chart. Neurological Pertinent negatives: seizures; neuromuscular disease; CVA/stroke and TIA Comments: Left cerebral convexity subdural hematoma, slightly increased in Size r/t mechanical fall 06/25 Cardiovascular Pertinent negatives: hypertension ; CAD ; NE ; CABG ; valvular heart disease; atrial [...] capacity is 4-6 METs. Obstructive sleep apnea (BESTY) screening status is STOP-Bang=3 suggesting moderate risk [...] arthritis of multiple sites (CMS/HCC) (HCC) Headache half-way use of drug DDD (degenerative disc disease), [...] MEDICAL hemorroids; Comments: Had done [facility] in [place] HX OTHER MEDICAL bladder infection HX OTHER [...] lesion LITHOTRIPSY 5 or 6 times - [id number] ORCHIECTOMY Right 1969' OTHER SURGICAL HISTORY 04/18/2020 [...] Medication protocol when under care of a BLOOD COLLECTOR Planned anesthesia: General Team communication plan: oral ET tube Induction: Induction: intravenous. Informed Consent: Discussed plan with BLOOD COLLECTOR. Anesthesia plan and risks discussed with patient. [...] on stairs Contact your local community or [facility] for information on exercise, fall prevention programs, or options for improving home safety. documented as of this encounter Procedures Procedure Name Priority Date/Time Associated Diagnosis Comments ME AN PROCEDURE PLACEHOLDER Routine 02/05/2023 1:39 PM CDT ME AN ELECTIVE ENDOTRACHEAL AIRWAY Routine 02/05/2023 1:39 PM CDT documented in this encounter Results * ME AN ELECTIVE ENDOTRACHEAL AIRWAY, ME AN PROCEDURE PLACEHOLDER (02/05/2023 1:39 PM CDT) Narrative Juan Ramon Martin CRNA - 02/05/2023 1:39 PM CDT Juan Ramon Martin CRNA ? 02/05/2023 ??1:41 PM Airway Patient location: OR Urgency: elective Indications for airway management: anesthesia Difficult airway: no Staff: Supervising provider: Comfort Craven MD PhD Placed by: BLOOD COLLECTOR: Juan Ramon Martin Dusty, MARKO Emergent airway [...] mg documented in this encounter Care Teams Plant Operator/Shift Supervisor Relationship Specialty Start Date End Date Grey Tomas MD PCP - General Family Practice 07/27/22 [place] [address] [facility] [address] [place] [address] Rheumatology 02/21/17 Lashay Downs, RN Registered Nurse Pain Management 06/17/17 Duke Do, RN Registered Nurse 09/09/17 Ngozi Petty MD Radiation Oncologist Radiation Oncology 02/05/19 Jose Roberto Marx MD Referring Physician Otolaryngology 02/05/19 documented as of this encounter
--- OUTSIDE RECORDS SUMMARY | 2024-06-14 23:24 | XMS_ITS | Encounter Summary ---
Author Organization [facility] Address [address] [place] [address] Phone Care Team Providers Care Senior Front End Engineer Name Role Phone Criss Blanco MD Unavailable Lashay Downs RN Unavailable Unavailab Duke Goodwin RN Unavailable UnavailNgozi Husain MD Unavailable [phone] Jose Roberto Marx MD Unavailable [phone] Grey Tomas MD Primary Care Provider [phone] Encounter Details Date Type Department Care Team (Late st Contact Info) Description 01/31/2023 9:45 AM CDT Office Visit [facility] Neurosurgery [address] [facility] Advanced Medicine [address]th [place] [address] [place] [address] Aston Grubbs MD [address] [place], [place] [id number] SDH (subdural hematoma) (HCC) (Primary Dx) Social [...] Department of Neurological Surgery Aston Grubbs M.D. [facility] Department of Neurological Surgery [address] [place] [address] NEW CLINIC VISIT Patient Name: SAMUEL HUFFMAN Medical Record Number (MRN): [id number] Date of (): 1945 Encounter Date: 01/31/2023 PRIMARY CARE PROVIDER: Grey Tomas MD REFERRING PROVIDER: Grey Tomas MD CHIEF COMPLAINT Headache HISTORY OF THE PRESENT ILLNESS Samuel Huffman is a 77 y.o. male who is [...] arthritis of multiple sites (CMS/HCC) (HCC) Headache emergency manager use of drug DDD (degenerative disc disease), [...] OTHER MEDICAL hemorroids; Comments: Had done at [facility] in [place] HX OTHER MEDICAL bladder infection HX OTHER [...] lesion LITHOTRIPSY 5 or 6 times - [id number] ORCHIECTOMY Right OTHER SURGICAL HISTORY 04/18/2020 Suspension microlaryngoscopy with KTP laser treatment-multiple PROSTATE SURGERY Pinched Prostate: surgically repaired ROTATOR CUFF REPAIR Right and removal of bone spurs SHOULDER SURGERY Right bone spurs VASECTOMY Current Outpatient Medications on File Prior to Visit Medication Sig Dispense Refill finasteride (PROSCAR) 5 mg tablet Take 1 tablet (5 mg total) by mouth casing 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 hydrOXYchloroQUINE (PLAQUENIL) 200 mg tablet [...] Grubbs MD Cerebrovascular/Endovascular & Skull Base Tumor Computer DrafterJig And Fixture Repairer of Neurological Surgery, Radiology and Neurology [facility] [employer] [facility], [place], [place] [facility] Office: [phone] documented in this encounter Plan of Treatment [...] 3 added in this encounter Care Teams Senior Front End Engineer Relationship Specialty Start Date End Date Grey Tomas MD PCP - General Family Practice 07/27/[address] [place] [address] [facility] [address] [place] [address] Rheumatology 02/21/17 Lashay Downs, RN Registered Nurse Pain Management 06/17/17 Duke Do, RN Registered Nurse 09/09/17 Ngozi Petty MD Radiation Oncologist Radiation Oncology 02/05/19 Jose Roberto Marx MD Referring Physician Otolaryngology 02/05/19 documented as of this encounter
--- OUTSIDE RECORDS SUMMARY | 2024-06-14 23:24 | XMS_ITS | Encounter Summary ---
Author Organization [facility] Healthcare Address [address] [place] [address] Care Team Providers Care Home Care Liaison Name Role Phone Criss Blanco MD Unavailable Lashay Downs RN Unavailable Unavailab Duke Goodwin RN Unavailable UnavailNgozi Husain MD Unavailable [phone] Jose Roberto Marx MD Unavailable [phone] Grey Tomas MD Primary Care Provider [phone] Encounter Details Date Type Department Care Team (Late st Contact Info) Description 01/31/2023 Orders Only [facility] Neuro Interventional Radiology 1 [place] [address] Carol Weaver SDH (subdural hematoma) (HCC) (Primary [...] file 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 Hgb 15.6 13.0 - 17.5 g/dL [facility] Hct 45.4 38.9 - 50.3 % [facility] Plt 147(L) 150 - 400 K/cumm [facility] MPV 11.1 9.1 - 12.[address] [facility] RBC 5.00 4.30 - 5.80 M/cumm [facility] MCV 90.8 81.3 - 96.[address] [facility] MCH 31.2 27.1 - 33.[address] [facility] MCHC 34.4 32.3 - 35.7 g/dL [facility] RDW CV 13.7 11.1 - 14.9 % [facility] RDW SD 45.3 35.7 - 48.[address] [facility] NRBC abs 0.00 0.00 - 0.01 K/cumm [facility] Blood 02/01/2023 8:45 AM CDT 02/01/2023 9:23 AM CDT Narrative [facility] - 02/01/2023 9:35 AM CDT CPAP ORDER Aston Grubbs MD LAB BLOOD ORDERABLES F inal Result [facility] Department [place] [address] * Basic metabolic panel (02/01/2023 8:45 AM CDT) Sodium 143 135 - 145 mmol/L [facility] Potassium, pl 4.0 3.3 - 4.9 mmol/L [facility] Chloride 106 97 - 110 mmol/L [facility] CO2 28 22 - 32 mmol/L [facility] Anion gap 9 2 - 15 mmol/L [facility] BUN 17 6 - 25 mg/dL [facility] Creatinine 1.11 0.80 - 1.30 mg/dL [facility] Glucose 94 70 - 199 mg/dL [facility] Comment: Interpretive Data Fasting glucose >/= [...] 2022. Calcium 9.3 8.5 - 10.3 mg/dL [facility] Blood 02/01/2023 8:45 AM CDT 02/01/2023 9:23 AM CDT Narrative ANDRE VALENZUELA - 02/01/2023 9:54 AM CDT CPAP ORDER Has the patient fasted?->No Aston Grubbs MD LAB BLOOD ORDERABLES F inal Result [facility] [place] [address] documented in this encounter Visit Diagnoses Diagnosis SDH (subdural hematoma) (HCC)- Primary Subdural hemorrhage Preoperative testing- Primary Unspecified pre-operative examination SDH (subdural hematoma) (HCC) Subdural hemorrhage documented in this encounter Care Teams Home Care Liaison Relationship Specialty Start Date End Date Grey Tomas MD PCP - General Family Practice 07/27/22 [place] [address] [facility] [address] [place] [address] Rheumatology 02/21/17 Lashay Downs, RN Registered Nurse Pain Management 06/17/17 Duke Do, RN Registered Nurse 09/09/17 Ngozi Petty MD Radiation Oncologist Radiation Oncology 02/05/19 Jose Roberto Marx MD Referring Physician Otolaryngology 02/05/19 documented as of this encounter
--- OUTSIDE RECORDS SUMMARY | 2024-06-14 23:24 | XMS_ITS | Encounter Summary ---
Author Organization [facility] Healthcare Address [address] [place] [address] Care Team Providers Care Plant Operations Coordinator Name Role Phone Criss Blanco MD Unavailable Lashay Downs RN Unavailable Unavailab Duke Goodwin RN Unavailable UnavailNgozi Husain MD Unavailable [phone] Jose Roberto Marx MD Unavailable [phone] Grey Tomas MD Primary Care Provider [phone] Reason for Referral * MRI/CAT/PET Scan (Routine) - Closed Specialty Diagnoses / Procedures Referred By Alcira forrest Referred To Contact Radiology Diagnoses Subdural hematoma (HCC) Procedures CT Head WO Contrast Baldo Bailey PA [address] [place] [address] Phone: tel: fax: [address] [phone] Referral ID Status Reason Start Date Expiration Date Visits Re quested Visits Authorized [id number] Closed 03/08/2023 04/06/2024 1 1 L SEWER Reason for Visit * MRI/CAT/PET Scan (Routine) - Closed Specialty Diagnoses / Procedures Referred By Alcira forrest Referred To Contact Radiology Diagnoses Subdural hematoma (HCC) Procedures CT Head WO Contrast Baldo Bailey PA [address] [place] [address] Phone: tel: fax: [facility] [place]za [address] Referral ID Status Reason Start Date Expiration Date Visits Re quested Visits Authorized [id number] Closed 03/08/2023 04/06/2024 1 1 Encounter Details Date Type Department Care Team (Latest Contact Info) Description 04/10/2023 12:10 PM PANEL SEWER - 04/10/2023 11:59 PM PANEL SEWER Hospital Encounter [facility] [id number] [address] Subdural hematoma (HCC) Discharge Disposition: Discharge to [...] on file Legal Sex Male 12:56 AM PANEL SEWER Gender Identity Not on file Sexual Orientation Not on file Occupation Industry Job Start Date Job End Date Retired Not on file Not on file Not on file documented as of this encounter Medications at Time of Discharge finasteride (PROSCAR) 5 mg tabletIndications :benign prostatic hyperplasia with lower urinary tract sx Take 1 tablet (5 mg total) by mouth records clerk before breakfast multivitamin capsuleIndication s:Vitamin Deficiency Prevention [...] Read Routine (OP Routine) 04/10/2023 12:22 PM PANEL SEWER Subdural hematoma (HCC) documented in this encounter Results * CT Head WO Contrast (04/10/2023 12:22 PM PANEL SEWER) Anatomical Region Laterality Modality Head and Neck N/A Computed Tomogra phy 04/10/2023 12:4 3 PM PANEL SEWER Impressions 04/10/2023 12:43 PM PANEL SEWER Stable bilateral convexity subdural collections. Electronically signed by: Indigo Mckenzie M.D. Narrative 04/10/2023 12:43 PM PANEL SEWER EXAMINATION: CT head without contrast HISTORY: Subdural [...] hemorrhage documented in this encounter Care Teams Plant Operations Coordinator Relationship Specialty Start Date End Date Grey Tomas MD PCP - General Family Practice 07/27/22 [place] [address] [address] Rheumatology 02/21/17 Lashay Downs, GAY Registered Nurse Pain Management 06/17/17 Duke Do, RN Registered Nurse 09/09/17 Ngozi Petty MD Radiation Oncologist Radiation Oncology 02/05/19 Jose Roberto Marx MD Referring Physician Otolaryngology 02/05/19 documented as of this encounter
--- OUTSIDE RECORDS SUMMARY | 2024-06-14 23:24 | XMS_ITS | Encounter Summary ---
Author Organization [facility] Address [address] [place] [address] Phone Care Team Providers Care Artificial Breast Fabricator Name Role Phone Criss Blanco MD Unavailable Lashay Downs RN Unavailable Unavailab Duke Goodwin RN Unavailable UnavailNgozi Husain MD Unavailable [phone] Jose Roberto Marx MD Unavailable [phone] Grey Tomas MD Primary Care Provider [phone] Reason for Referral * MRI/CAT/PET Scan (Routine) - Closed Specialty Diagnoses / Procedures Referred By Contac t Referred To Contact Radiology Diagnoses Subdural hematoma (HCC) SDH (subdural hematoma) (HCC) Procedures CT Head WO Contrast Baldo Bailey PA [address] [place] [address] Phone: tel: fax: [place] [address] [place] [address] Referral ID Status Reason Start Date Expiration Date Visits Re quested Visits Authorized [id number] Closed 04/10/2023 05/09/2024 1 1 D ASSOCIATE Encounter Details Date Type Department Care Team (Late st Contact Info) Description 04/10/2023 2:30 PM FIELD ASSOCIATE Office Visit [facility] Neurosurgery [address] [facility] [address] [place] [address] Baldo Bailey PA [address] [place] [address] Subdural hematoma (HCC) (Primary Dx); SDH (subdural [...] on file Legal Sex Male 12:56 AM FIELD ASSOCIATE Gender Identity Not on file Sexual [...] (224 lb 3.2 oz) 04/10/2023 1:30 PM FIELD ASSOCIATE Height 185.4 cm (6' 1 ) 04/10/2023 1:30 PM FIELD ASSOCIATE Body Mass Index 29.58 04/10/2023 1:30 PM FIELD ASSOCIATE documented in this encounter Progress Notes * Baldo Bailey PA - 04/10/2023 2:30 PM CST RETURN VISIT Subjective HISTORY OF PRESENT ILLNESS Pleasant 77-year-old male returns to clinic for another evaluation, repeat CT head scan prior to arrival. The patient was transferred to [facility] from outside hospital in June of 2022 [...] 1 tablet (5 mg total) by mouth lead applications developer before breakfast, Disp: , Rfl: hydrOXYchloroQUINE (PLAQUENIL) [...] turgor and color. Cap refills normal limits. Pattern Mechanic strength is intact and equal. REVIEW OF [...] months with a re-evaluation. Baldo Bailey PA-C D ASSOCIATE documented in this encounter Plan of [...] CT Head WO Contrast (07/09/2023 12:10 PM FIELD ASSOCIATE) Anatomical Region Laterality Modality Head and Neck N/A Computed Tomogra phy 07/09/2023 12:2 6 PM FIELD ASSOCIATE Impressions 07/09/2023 2:32 PM FIELD ASSOCIATE Nearly resolved right and decreased left subdural hematomas. ??No interval acute intracranial abnormality. Dictated by: Caesar Lemus MD The radiology attending physician has personally reviewed this study, and had reviewed and/or edited this written report and agrees with it. Electronically signed by: Gabriela Gómez M.D. Narrative 07/09/2023 2:32 PM FIELD ASSOCIATE EXAMINATION: CT head without contrast HISTORY: Subdural [...] hemorrhage documented in this encounter Care Teams Artificial Breast Fabricator Relationship Specialty Start Date End Date Grey Tmoas MD PCP - General Family Practice 07/27/22 [place] [address] [facility] [address] [place] [address] Rheumatology 02/21/17 Lashay Downs, RN Registered Nurse Pain Management 06/17/17 Duke Do, RN Registered Nurse 09/09/17 Ngozi Petty MD Radiation Oncologist Radiation Oncology 02/05/19 Jose Roberto Marx MD Referring Physician Otolaryngology 02/05/19 documented as of this encounter
--- OUTSIDE RECORDS SUMMARY | 2024-06-14 23:24 | XMS_ITS | Encounter Summary ---
Author Organization [facility] Address [address] [place] [address] Phone Care Team Providers Care Hose Inspector Name Role Phone Criss Blanco MD Unavailable Lashay Downs RN Unavailable Unavailab Duke Goodwin RN Unavailable UnavailNgozi Husain MD Unavailable [phone] Jose Roberto Marx MD Unavailable [phone] Grey Tomas MD Primary Care Provider [phone] Reason for Referral * MRI/CAT/PET Scan (Routine) - Closed Specialty Diagnoses / Procedures Referred By Conthermila t Referred To Contact Radiology Diagnoses Subdural hematoma (HCC) Procedures CT Head WO Contrast Aston Grubbs MD [address] [place] [address] Phone: tel: fax: [address] [address] Referral ID Status Reason Start Date Expiration Date Visits Re quested Visits Authorized [id number] Closed 02/08/2023 03/09/2024 1 1 Encounter Details Date Type Department Care Team (Late st Contact Info) Description 02/08/2023 Orders Only [facility] Neurosurgery [address] [facility] 6th [place] [address] [place] [address] Aston Grubbs MD [address] [place] [address] Subdural hematoma (HCC) (Primary Dx) Social History [...] on file 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
--- OUTSIDE RECORDS SUMMARY | 2024-06-14 23:24 | XMS_ITS | Encounter Summary ---
Author Organization [facility] Address [address] [place] [address] Phone Care Team Providers Care Biometrics Experimentalist Name Role Phone Criss Blanco MD Unavailable Lashay Downs RN Unavailable Unavailab Duke Goodwin RN Unavailable UnavailNgozi Husain MD Unavailable [phone] Jose Roberto Marx MD Unavailable [phone] Grey Tomas MD Primary Care Provider [phone] Encounter Details Date Type Department Care Team (Late st Contact Info) Description 01/31/[address] 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 Gender Identity Not on file Sexual Orientation Not on file Occupation Industry Job Start Date Job End Date Retired Not on file Not on file Not on file documented as of this encounter Miscellaneous Notes * Telephone Encounter - Teresa Beltran RMA - 01/31/2023 11:08 AM CDT Per patient appointment - patient will need to be schedule for [facility] Email sent to to get schedule [...] on filedocumented in this encounter Care Teams Biometrics Experimentalist Relationship Specialty Start Date End Date Grey Tomas MD PCP - General Family Practice 07/27/22 [place] [address] [facility] [address] [place] [address] Rheumatology 02/21/17 Lashay Downs, RN Registered Nurse Pain Management 06/17/17 Duke Do, RN Registered Nurse 09/09/17 Ngozi Petty MD Radiation Oncologist Radiation Oncology 02/05/19 Jose Roberto Marx MD Referring Physician Otolaryngology 02/05/19 documented as of this encounter
--- OUTSIDE RECORDS SUMMARY | 2024-06-14 23:24 | XMS_ITS | Encounter Summary ---
Author Organization [facility] Healthcare Address [address] [place] [address] Care Team Providers Care Sales Enablement Consultant Name Role Phone Criss Blanco MD Unavailable Lashay Downs RN Unavailable Unavailab Duke Goodwin RN Unavailable UnavailNgozi Husain MD Unavailable [phone] Jose Roberto Marx MD Unavailable [phone] Grey Tomas MD Primary Care Provider [phone] Encounter Details Date Type Department Care Team (Latest Contact Info) Description 02/01/2023 7:30 AM CDT Pre-Admission Testing [facility] for Preoperative Assessment and Planning [facility] ([facility]) [address] [place] [address] Preoperative testing (Primary Dx); SDH (subdural hematoma) (HCC) Anesthesia Record Procedure Summary Procedure Name Responsible Anesthesiologist Anesthesia Start Time Anesthesia Stop Time IR PERMANENT OCCLUSION OR EMBOLIZATION PERCUTANEOUS RADIO SCRIPT WRITER Comfort Craven MD PhD 02/05/23 1318 02/05/23 [...] CRNA 02/05/23 1530 by Juan Ramon Martin, WOODWIND INSTRUMENT REPAIRER documented in this encounter Social History Tobacco [...] on file 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 Gender Identity Not on file Sexual Orientation [...] Planning Perioperative Nursing Note CPAP Clinic at [facility] ([facility]) Date: 02/01/23 This assessment was completed [...] for the 02/01/23 encounter (Pre-Admission Testing) with [facility] CPAP NURSE Medication Sig Dispense Refill diphenhydrAMINE 25 mg capsule Take 1 tablet/capsule (25 mg total) by mouth every 6 (six) hours as needed for itching famotidine (PEPCID) 40 mg tablet Take 1 tablet (40 mg total) by mouth nightly finasteride (PROSCAR) 5 mg tablet Take 1 tablet (5 mg total) by mouth microarray specialist before breakfast multivitamin capsule Take 1 capsule [...] Patient has advance directive, copy in chart Communication/Residential Mortgage Underwriter Needs Communication Needs: Glasses Assistive Devices/DME: Eyeglasses Discharge Planning Type of Residence: Private residence Living Arrangements: Alone Support Systems: Family members FABRICATION INSPECTOR NO ADDITIONAL COMMENTS/ FOLLOW UP * Pre-Procedure [...] Remove nail coverings, artificial nails and nail syriac prior to the day of surgery. You should leave your valuables and any jewelry at home. No metal or piercings are allowed in the operating room. You should bring your insurance card, a photo ID (example: Patient Transport Orderly's License) and a method of payment for [...] Chart. If you are having surgery at [facility], please arrive on the day of surgery [...] FALL RISK wrist band while attending additional [facility] appointments. Placed yellow FALL RISK wrist band [...] for the most updated information. Information on [facility]: Please view [email or web address] (Patient & Visitor Information) for additional details regarding Advanced Directive forms, AWARE, directions, parking information, lodging, Internet access, dining and more. Information on [facility] or [facility] ([facility]): Please view [email or web address] (Patient and Visitor Information) for parking/directions and more. For MyChart information, to activate account or password recovery, please go to [email or web address] or call [phone] (toll-free: [phone]). Information for Suicide Prevention: National Suicide Prevention Lifeline (0-528-990-HLSV (6233)). Surgery Times: For patients having surgery @ [facility], if your surgeon's office has not notified you of your surgery time by 2pm THE BUSINESS DAY BEFORE your surgery, please call the surgery center at [phone] and ask for your surgeon's office Dr. Grubbs. * Pre-Procedure Instructions - Mario Lisa Starkey, JOSEPH - 02/01/2023 7:30 AM CDT Center for Preoperative Assessment and Planning CPAP Clinic Location: [facility] CPAP The night before your surgery: * [...] of surgery. * If having surgery at [facility], you may want to bring a credit card if you want to use our Mobile Pharmacy for your discharge medications. Mobile pharmacy is not available at [facility], the [facility], or [facility]. Outpatient Surgery: * You must have [...] on stairs Contact your local community or [facility] for information on exercise, fall prevention [...] MD LAB BLOOD ORDERABLES F inal Result [facility] [place] [address] * Protime-INR (02/01/2023 8:45 AM CDT) PT 11.5 10.3 - 13.7 sec [facility] INR 1.01 0.90 - 1.20 [facility] Comment: Interpretive data Oral anticoagulant therapeutic ranges: Venous thromboembolism prophylaxis or treatment: 2.0-3.0 CARDIOLOGY Standard range: 2.0-3.0 High-intensity range: 2.5-3.5 Refer to indication-specific guidelines for appropriate target ranges for prosthetic heart valve replacement. Current interpretive data was last revised on 2019. Blood 02/01/2023 8:45 AM CDT 02/01/2023 9:23 AM CDT Aston Grubbs MD LAB BLOOD ORDERABLES F inal Result [facility] [place] [address] * Differential, auto (02/01/2023 8:45 AM CDT) Neutrophil abs 4.2 1.7 - 6.5 K/cumm [facility] Imm gran abs 0.0 0.0 - 0.1 K/cumm [facility] Lymphocyte abs 0.9 0.8 - 3.3 K/cumm [facility] Monocyte abs 0.4 0.2 - 0.8 K/cumm [facility] Eosinophil abs 0.2 0.0 - 0.5 K/cumm [facility] Basophil abs 0.0 0.0 - 0.1 K/cumm [facility] Neutrophil pct 73.4 % [facility] Comment: Interpretive Data Percent cell count reference ranges are not reported, since discordance with absolute values may lead to misinterpretation of CBC data. Current Interpretive Data was last revised on 2017. Imm gran pct 0.2 % [facility] Comment: Interpretive Data Percent cell count reference ranges are not reported, since discordance with absolute values may lead to misinterpretation of CBC data. Current Interpretive Data was last revised on 2017. Lymphocyte pct 15.5 % [facility] Comment: Interpretive Data Percent cell count reference ranges are not reported, since discordance with absolute values may lead to misinterpretation of CBC data. Current Interpretive Data was last revised on 2017. Monocyte pct 6.7 % [facility] Comment: Interpretive Data Percent cell count reference ranges are not reported, since discordance with absolute values may lead to misinterpretation of CBC data. Current Interpretive Data was last revised on 2017. Eosinophil pct 3.5 % [facility] Comment: Interpretive Data Percent cell count reference ranges are not reported, since discordance with absolute values may lead to misinterpretation of CBC data. Current Interpretive Data was last revised on 2017. Basophil pct 0.7 % [facility] Comment: Interpretive Data Percent cell count reference ranges are not reported, since discordance with absolute values may lead to misinterpretation of CBC data. Current Interpretive Data was last revised on 2017. Blood 02/01/2023 8:45 AM CDT 02/01/2023 9:23 AM CDT Aston Grubbs MD LAB BLOOD ORDERABLES F inal Result Performing Organization Address [facility] Co de Phone Number [facility] [place] [address] * CPAP aPTT algorithm (02/01/2023 8:45 AM CDT) Pathologist [facility] aPTT 32 28 - 38 sec [facility] Comment: Interpretive Data Therapeutic heparin range: 60.0 - 94.0 seconds. Based on correlation with therapeutic heparin activity range of 0.3-0.7 Units/mL. Current interpretive data was last revised on 2020. Blood 02/01/2023 8:45 AM CDT 02/01/2023 9:23 AM CDT Lisa Martin NP LAB BLOOD ORDERABLES Final Result Performing Organization Address [facility] de Phone Number [facility] [place] [address] * Basic metabolic panel (02/01/2023 8:45 AM CDT) Pathologist [facility] Sodium 143 135 - 145 mmol/L [facility] Potassium, pl 4.0 3.3 - 4.9 mmol/L [facility] Chloride 106 97 - 110 mmol/L [facility] CO2 28 22 - 32 mmol/L [facility] Anion gap 9 2 - 15 mmol/L [facility] BUN 17 6 - 25 mg/dL [facility] Creatinine 1.11 0.80 - 1.30 mg/dL [facility] Glucose 94 70 - 199 mg/dL [facility] Comment: Interpretive Data Fasting glucose >/= [...] 2022. Calcium 9.3 8.5 - 10.3 mg/dL [facility] Blood 02/01/2023 8:45 AM CDT 02/01/2023 9:23 AM CDT Narrative [facility] - 02/01/2023 9:54 AM CDT CPAP ORDER Has the patient fasted?->No Aston Grubbs MD LAB BLOOD ORDERABLES F inal Result [facility] [place] [address] * (ABNORMAL) CBC with auto differential (02/01/2023 8:45 AM CDT) [facility] WBC 5.7 3.8 - 9.9 K/cumm [facility] Hgb 15.6 13.0 - 17.5 g/dL [facility] Hct 45.4 38.9 - 50.3 % [facility] Plt 147(L) 150 - 400 K/cumm [facility] MPV 11.1 9.1 - 12.3 fL [facility] RBC 5.00 4.30 - 5.80 M/cumm [facility] MCV 90.8 81.3 - 96.4 fL [facility] MCH 31.2 27.1 - 33.3 pg [facility] MCHC 34.4 32.3 - 35.7 g/dL [facility] RDW CV 13.7 11.1 - 14.9 % [facility] RDW SD 45.3 35.7 - 48.1 fL [facility] NRBC abs 0.00 0.00 - 0.01 K/cumm [facility] Blood 02/01/2023 8:45 AM CDT 02/01/2023 9:23 AM CDT Narrative ANDRE VALENZUELA - 02/01/2023 9:35 AM CDT CPAP ORDER us Aston Grubbs MD LAB BLOOD ORDERABLES F inal Result [facility] [place] [address] documented in this encounter Visit Diagnoses Diagnosis [...] mg tablet Take 10 mg by mouth microarray specialist before breakfast Therapy completed 02/01/2023 fluticasone propionate (FLONASE) 50 mcg/actuation nasal spray Administer 1 spray into each nostril microarray specialist before breakfast Therapy completed 04/12/2022 02/01/2023 folic acid (FOLVITE) 1 mg tablet Take 1 tablet (1 mg total) by mouth microarray specialist before breakfast Therapy completed 02/01/2023 omeprazole (PriLOSEC) 20 mg capsule Take 2 capsules (40 mg total) by mouth microarray specialist before breakfast Duplicate order 02/01/2023 predniSONE (DELTASONE) [...] by mouth nightly Therapy completed 03/28/2020 02/01/2023 fctjbrvkyv-ldcfwyvl-ff rmoterol (Breztri Aerosphere) 160-9-4.8 mcg/actuation HFA aerosol [...] 08/15/2023 added in this encounter Care Teams Sales Enablement Consultant Relationship Specialty Start Date End Date Grey Tomas MD PCP - General Family Practice 07/27/22 [place] [address] [facility] [address] [place] [address] Rheumatology 02/21/17 Lashay Downs, RN Registered Nurse Pain Management 06/17/17 Duke Do, RN Registered Nurse 09/09/17 Ngozi Petty MD Radiation Oncologist Radiation Oncology 02/05/19 Jose Roberto Marx MD Referring Physician Otolaryngology 02/05/19 documented as of this encounter
--- OUTSIDE RECORDS SUMMARY | 2024-06-14 23:24 | XMS_ITS | Encounter Summary ---
Author Organization [facility] Healthcare Address [address] [place] [address] Care Team Providers Care Drier Operator Name Role Phone Criss Blanco MD Unavailable Lashay Downs RN Unavailable Unavailab Duke Goodwin RN Unavailable UnavailgNozi Husain MD Unavailable [phone] Jose Roberto Marx MD Unavailable [phone] Grey Tomas MD Primary Care Provider [phone] Reason for Referral * MRI/CAT/PET Scan (Routine) - Closed Specialty Diagnoses / Procedures Referred By Alcira forrest Referred To Contact Radiology Diagnoses Subdural hematoma (HCC) Procedures CT Head WO Contrast Aston Grubbs MD [address] [facility] [address] [place] [address] Phone: tel: fax: [address] [address] Referral ID Status Reason Start Date Expiration Date Visits Re quested Visits Authorized [id number] Closed 02/08/2023 03/09/2024 1 1 Reason for Visit * MRI/CAT/PET Scan (Routine) - Closed Specialty Diagnoses / Procedures Referred By Alcira forrest Referred To Contact Radiology Diagnoses Subdural hematoma (HCC) Procedures CT Head WO Contrast VelAston woodson MD [address] [place] [address] Phone: tel: fax: [facility] [address] [facility] [place] [address] Referral ID Status Reason Start Date Expiration Date Visits Re quested Visits Authorized [id number] Closed 02/08/2023 03/09/2024 1 1 Encounter Details Date Type Department Care Team (Latest Contact Info) Description 03/07/2023 8:15 AM CDT - 03/07/2023 11:59 PM CDT Hospital Encounter [facility] [address] [place] [id number] Aston Grubbs MD [address] [place] [address] Subdural hematoma (HCC) Discharge Disposition: Discharge to [...] on file 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 Gender Identity Not on file Sexual Orientation Not on file Occupation Industry Job Start Date Job End Date Retired Not on file Not on file Not on file documented as of this encounter Medications at Time of Discharge finasteride (PROSCAR) 5 mg tabletIndications :benign prostatic hyperplasia with lower urinary tract sx Take 1 tablet (5 mg total) by mouth vocational evaluator before breakfast multivitamin capsuleIndication s:Vitamin Deficiency Prevention [...] hemorrhage documented in this encounter Care Teams Drier Operator Relationship Specialty Start Date End Date Grey Tomas MD PCP - General Family Practice 07/27/22 [place] [address] [facility] [address] [place] [address] Rheumatology 02/21/17 Lashay Downs, RN Registered Nurse Pain Management 06/17/17 Duke Do, RN Registered Nurse 09/09/17 Ngozi Petty MD Radiation Oncologist Radiation Oncology 02/05/19 Jose Roberto Marx MD Referring Physician Otolaryngology 02/05/19 documented as of this encounter
--- OUTSIDE RECORDS SUMMARY | 2024-06-14 23:24 | XMS_ITS | Encounter Summary ---
Author Organization [facility] Address [address] [place] [address] Phone Care Team Providers Care Audiovisual Equipment Operator Name Role Phone Criss Blanco MD Unavailable Lashay Downs RN Unavailable Unavailab Duke Goodwin RN Unavailable UnavailNgozi Husain MD Unavailable [phone] Jose Roberto Marx MD Unavailable [phone] Grey Tomas MD Primary Care Provider [phone] Reason for Visit * Reason Comments voice follow up * Consultation (Routine) - Closed Specialty Diagnoses / Procedures Referred By Contac t Referred To Contact Otolaryngology Diagnoses 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 ENT [address] [facility] [address] [place] [address] Nakita Herrera MD [address] [place] [address] Carcinoma in situ of larynx (Primary Dx) [...] on file Legal Sex Male 12:56 AM COLLEGE TUTOR Gender Identity Not on file Sexual Orientation [...] CIS. DISPOSITION: 3 months Dariana Herrera MD File System Installer [facility] Division of Laryngology Department of Otolaryngology--Head & Neck Surgery EGE TUTOR documented in this encounter Plan of Treatment [...] Primary documented in this encounter Care Teams Audiovisual Equipment Operator Relationship Specialty Start Date End Date Grey Tomas MD PCP - General Family Practice 07/27/22 [place] [address] [address] Rheumatology 02/21/17 Lashay Downs, GAY Registered Nurse Pain Management 06/17/17 Duke Do, GAY Registered Nurse 09/09/17 Ngozi Petty MD Radiation Oncologist Radiation Oncology 02/05/19 Jose Roberto Marx MD Referring Physician Otolaryngology 02/05/19 documented as of this encounter
--- OUTSIDE RECORDS SUMMARY | 2024-06-14 23:24 | XMS_ITS | Encounter Summary ---
Author Organization [facility] Address [address] [place] [address] Phone Care Team Providers Care Baking Factory Worker Name Role Phone Criss Blanco MD Unavailable Lashay Downs RN Unavailable Unavailab Duke Goodwin RN Unavailable UnavailNgozi Husain MD Unavailable [phone] Jose Roberto Marx MD Unavailable [phone] Grey Tomas MD Primary Care Provider [phone] Encounter Details Date Type Department Care Team (Late st Contact Info) Description 03/07/2023 Telephone [facility] Neurosurgery [address] 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
--- OUTSIDE RECORDS SUMMARY | 2024-06-14 23:24 | XMS_ITS | Encounter Summary ---
Author Organization [facility] Healthcare Address [address] [place] [address] Care Team Providers Care Blasting Contract Miner Name Role Phone Criss Blanco MD Unavailable Lashay Downs RN Unavailable Unavailab Duke Goodwin RN Unavailable UnavailNgozi Husain MD Unavailable [phone] Jose Roberto Marx MD Unavailable [phone] Grey Tomas MD Primary Care Provider [phone] Encounter Details Date Type Department Care Team (Late st Contact Info) Description 01/31/2023 Orders Only [facility] Interventional Radiology [address] [place] [address] Kecia Gant, ZOILA [address] [facility] [address] [place] [address] Social History Tobacco Use Types Packs/Day Years [...] file 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 documented as of this encounter Visit Diagnoses Not on filedocumented in this encounter Care Teams Blasting Contract Miner Relationship Specialty Start Date End Date Grey Tomas MD PCP - General Family Practice 07/27/22 [place] [address] [facility] [address] [place] [address] Rheumatology 02/21/17 Lashay Downs, GAY Registered Nurse Pain Management 06/17/17 Duke Do, RN Registered Nurse 09/09/17 Ngozi Petty MD Radiation Oncologist Radiation Oncology 02/05/19 Jose Roberto Marx MD Referring Physician Otolaryngology 02/05/19 documented as of this encounter
--- OUTSIDE RECORDS SUMMARY | 2024-06-14 23:24 | XMS_ITS | Encounter Summary ---
Author Organization [facility] Healthcare Address [address] [place] [address] Care Team Providers Care Station Examiner Name Role Phone Criss Blanco MD Unavailable Lashay Downs RN Unavailable Unavailab Duke Goodwin RN Unavailable UnavailNgozi Husain MD Unavailable [phone] Jose Roberto Marx MD Unavailable [phone] Grey Tomas MD Primary Care Provider [phone] Reason for Referral * MRI/CAT/PET Scan (Routine) - Closed Specialty Diagnoses / Procedures Referred By Alcira forrest Referred To Contact Radiology Diagnoses Subdural hematoma (HCC) SDH (subdural hematoma) (HCC) Procedures CT Head WO Contrast Baldo Bailey PA [address] [facility] [address] [place] [address] Phone: tel: fax: [facility] [address] [place] [address] Referral ID Status Reason Start Date Expiration Date Visits Re quested Visits Authorized [id number] Closed 04/10/2023 05/09/2024 1 1 SUPPORT TECHNICIAN Reason for Visit * MRI/CAT/PET Scan (Routine) - Closed Specialty Diagnoses / Procedures Referred By Contac t Referred To Contact Radiology Diagnoses Subdural hematoma (HCC) SDH (subdural hematoma) (HCC) Procedures CT Head WO Contrast Baldo Bailey PA [address] [place] [address] Phone: tel: fax: [facility] [place] [address] Referral ID Status Reason Start Date Expiration Date Visits Re quested Visits Authorized [id number] Closed 04/10/2023 05/09/2024 1 1 Encounter Details Date Type Department Care Team (Latest Contact Info) Description 07/09/2023 12:03 PM IT SUPPORT TECHNICIAN - 07/09/2023 11:59 PM IT SUPPORT TECHNICIAN Hospital Encounter [facility] Imaging [place] [address] Subdural hematoma (HCC); SDH (subdural hematoma) (HCC) [...] file Legal Sex Male 12:56 AM IT SUPPORT TECHNICIAN Gender Identity Not on file Sexual Orientation Not on file Occupation Industry Job Start Date Job End Date Retired Not on file Not on file Not on file documented as of this encounter Medications at Time of Discharge finasteride (PROSCAR) 5 mg tabletIndications :benign prostatic hyperplasia with lower urinary tract sx Take 1 tablet (5 mg total) by mouth histology specialist before breakfast multivitamin capsuleIndication s:Vitamin Deficiency Prevention [...] stairs Contact your local community or [facility] for information on exercise, fall prevention programs, or options for improving home safety. documented as of this encounter Procedures Procedure Name Priority Date/Time Associated Diagnosis Comments CT HEAD WO CONTRAST Schedule Routine, Read Routine (OP Routine) 07/09/2023 12:10 PM IT SUPPORT TECHNICIAN Subdural hematoma (HCC) SDH (subdural hematoma) (HCC) documented in this encounter Results * CT Head WO Contrast (07/09/2023 12:10 PM IT SUPPORT TECHNICIAN) Anatomical Region Laterality Modality Head and Neck N/A Computed Tomogra phy 07/09/2023 12:2 6 PM IT SUPPORT TECHNICIAN Impressions 07/09/2023 2:32 PM IT SUPPORT TECHNICIAN Nearly resolved right and decreased left subdural hematomas. ??No interval acute intracranial abnormality. Dictated by: Caesar Lemus MD The radiology attending physician has personally reviewed this study, and had reviewed and/or edited this written report and agrees with it. Electronically signed by: Gabriela Gómez M.D. Narrative 07/09/2023 2:32 PM IT SUPPORT TECHNICIAN EXAMINATION: CT head without contrast HISTORY: Subdural [...] hemorrhage documented in this encounter Care Teams Station Examiner Relationship Specialty Start Date End Date Grey Tomas MD PCP - General Family Practice 07/27/22 [place] [address] [facility] [address] [place] [address] Rheumatology 02/21/17 Lashay Downs, RN Registered Nurse Pain Management 06/17/17 Duke Do, RN Registered Nurse 09/09/17 Ngozi Petty MD Radiation Oncologist Radiation Oncology 02/05/19 Jose Roberto Marx MD Referring Physician Otolaryngology 02/05/19 documented as of this encounter
--- OUTSIDE RECORDS SUMMARY | 2024-06-14 23:24 | XMS_ITS | Encounter Summary ---
Author Organization [facility] [place] [facility] Address [address] [place] [address] Phone Care Team Providers Care Tool Crib Supervisor Name Role Phone Criss Blanco MD Unavailable Lashay Downs RN Unavailable Unavailab Duke Goodwin RN Unavailable UnavailNgozi Husain MD Unavailable [phone] Jose Roberto Marx MD Unavailable [phone] Grey Tomas MD Primary Care Provider [phone] Encounter Details Date Type Department Care Team (Late st Contact Info) Description 03/07/2023 11:15 AM CDT Office Visit [facility] Neurosurgery [address] [facility] Advanced Medicine 6th [place] [address] [place] [address] Aston Grubbs MD [address] [place] [address] Subdural hematoma (HCC) (Primary Dx) Social History [...] file 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 Department of Neurological Surgery Aston Grubbs M.D. [facility] Department of Neurological Surgery [address] [place], [place] [address] RETURN VISIT Patient Name: Samuel Sanchez Medical Record Number (MRN): [id number] Date of (): 1945 Encounter Date: 03/07/2023 PRIMARY CARE PROVIDER: Grey Tomas MD REFERRING PROVIDER: Grey Tomas MD [address] [place] [address] INTERVAL HISTORY We saw Samuel Sanchez in [...] as well. He was then referred to nm. He then underwent bilateral middle meningeal artery [...] him back in about 2 months in [facility]'s clinic with a repeat head CT scan [...] on stairs Contact your local community or [facility] for information on exercise, fall prevention programs, or options for improving home safety. documented as of this encounter Visit Diagnoses Diagnosis Subdural hematoma (HCC)- Primary Subdural hemorrhage documented in this encounter Care Teams Tool Crib Supervisor Relationship Specialty Start Date End Date Grey Tomas MD PCP - General Family Practice 07/27/22 [place] [address] [facility] [address] [place] [address] Rheumatology 02/21/17 Lashay Downs, GAY Registered Nurse Pain Management 06/17/17 Duke Do, GAY Registered Nurse 09/09/17 Ngozi Petty MD Radiation Oncologist Radiation Oncology 02/05/19 Jose Roberto Marx MD Referring Physician Otolaryngology 02/05/19 documented as of this encounter
--- OUTSIDE RECORDS SUMMARY | 2024-06-14 23:25 | XMS_ITS | Encounter Summary ---
Author Organization [facility] Healthcare Address [address] [place] [address] Care Team Providers Care Metal Container Maker Name Role Phone Criss Blanco MD Unavailable Lashay Downs RN Unavailable Unavailab Duke Goodwin RN Unavailable UnavailNgozi Husain MD Unavailable [phone] Jose Roberto Marx MD Unavailable [phone] Grey Tomas MD Primary Care Provider [phone] Reason for Referral * Diagnostic Imaging (Routine) - Closed Specialty Diagnoses / Procedures Referred By Contac t Referred To Contact Diagnoses Lumbar spondylosis Procedures XR Spine Lumbar Ap Lat Flex Ext min 4 Views Baldo Bailey PA [address] [place] [address] Phone: tel: fax: [address] [address] Referral ID Status Reason Start Date Expiration Date Visits Re quested Visits Authorized [id number] Closed 01/10/2023 02/09/2024 1 1 Reason for Visit * Diagnostic Imaging (Routine) - Closed Specialty Diagnoses / Procedures Referred By Contac t Referred To Contact Diagnoses Lumbar spondylosis Procedures XR Spine Lumbar Ap Lat Flex Ext min 4 Views Baldo Bailey PA [address] [place] [address] Phone: tel: fax: [facility] [address] [place] [address] Referral ID Status Reason Start Date Expiration Date Visits Re quested Visits Authorized [id number] Closed 01/10/2023 02/09/2024 1 1 Encounter Details Date Type Department Care Team (Latest Contact Info) Description 01/17/2023 12:14 PM CDT - 01/17/2023 11:59 PM CDT Hospital Encounter [id number] Radiology [address] [facility] [address] [place] [address] Lumbar spondylosis [...] on file Legal Sex Male 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 Gender Identity Not on file Sexual Orientation Not on file 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 on file Not on natalie e documented as of this encounter Medications at Time of Discharge finasteride (PROSCAR) 5 mg tabletIndications :benign prostatic hyperplasia with lower urinary tract sx Take 1 tablet (5 mg total) by mouth overhead crane operator before breakfast multivitamin capsuleIndication s:Vitamin Deficiency [...] mg tablet Take 10 mg by mouth overhead crane operator before breakfast 3 famotidine (PEPCID) 40 mg tablet Take 1 tablet (40 mg total) by mouth nightly 03/28/2020 3 fluticasone propionate (FLONASE) 50 mcg/actuation nasal spray Administer 1 spray into each nostril overhead crane operator before breakfast 04/12/2022 3 folic acid (FOLVITE) 1 mg tablet Take 1 tablet (1 mg total) by mouth overhead crane operator before breakfast 3 hydrOXYchloroQUIN E (PLAQUENIL) 200 [...] 2 capsules (40 mg total) by mouth overhead crane operator before breakfast 3 oxyCODONE (ROXICODONE) 5 mg [...] on stairs Contact your local community or [facility] for information on exercise, fall [...] myelopathy documented in this encounter Care Teams Metal Container Maker Relationship Specialty Start Date End Date Grey Tomas MD PCP - General Family Practice 07/27/22 [place] [address] [address] Rheumatology 02/21/17 Lashay Downs, GAY Registered Nurse Pain Management 06/17/17 Duke Do, RN Registered Nurse 09/09/17 Ngozi Petty MD Radiation Oncologist Radiation Oncology 02/05/19 Jose Roberto Marx MD Referring Physician Otolaryngology 02/05/19 documented as of this encounter
--- OUTSIDE RECORDS SUMMARY | 2024-06-14 23:25 | XMS_ITS | Encounter Summary ---
Author Organization [facility] Healthcare Address [address] [place] [address] Care Team Providers Care Cork Slabs Sawyer Name Role Phone Criss Blanco MD Unavailable Lashay Downs RN Unavailable Unavailab Duke Goodwin RN Unavailable UnavailNgozi Husain MD Unavailable [phone] Jose Roberto Marx MD Unavailable [phone] Grey Tomas MD Primary Care Provider [phone] Reason for Visit * Reason Onset Date Comments PMC Intake Assessment 10/11/2022 Encounter Details Date Type Department Care Team (Late st Contact Info) Description 10/11/2022 Telephone Pain Management Center at [facility] [address] [address], [address] [place] [id number] Mabel Rincon, RN PMC Intake Assessment Social [...] on file Legal 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 [facility] , Dr. Shelton, [facility] DR Reyes Have you had any injections [...] on stairs Contact your local community or [facility] for information on exercise, fall prevention [...] 3 added in this encounter Care Teams Cork Slabs Sawyer Relationship Specialty Start Date End Date Grey Tomas MD PCP - General Family Practice 07/27/22 [place] [address] [facility] [address] [place] [address] Rheumatology 02/21/17 Lashay Downs, RN Registered Nurse Pain Management 06/17/17 Duke Do, RN Registered Nurse 09/09/17 Ngozi Petty MD Radiation Oncologist Radiation Oncology 02/05/19 Jose Roberto Marx MD Referring Physician Otolaryngology 02/05/19 documented as of this encounter
--- OUTSIDE RECORDS SUMMARY | 2024-06-14 23:25 | XMS_ITS | Encounter Summary ---
Author Organization [facility] Address [address] [place] [address] Phone Care Team Providers Care Internet E Commerce Specialist Name Role Phone Criss Blanco MD Unavailable Lashay Downs RN Unavailable Unavailab Duke Goodwin RN Unavailable UnavailNgozi Husain MD Unavailable [phone] Jose Roberto Marx MD Unavailable [phone] Grey Tomas MD Primary Care Provider [phone] Reason for Referral * Diagnostic Imaging (Routine) - Closed Specialty Diagnoses / Procedures Referred By Contac t Referred To Contact Diagnoses Lumbar spondylosis Procedures XR Spine Lumbar Ap Lat Flex Ext min 4 Views Baldo Bailey PA [address] [place] [address] Phone: tel: fax: [address] [address] Referral ID Status Reason Start Date Expiration Date Visits Re quested Visits Authorized [id number] Closed 01/10/2023 02/09/2024 1 1 Encounter Details Date Type Department Care Team (Late st Contact Info) Description 01/10/2023 Orders Only [facility] Medical Office Building [address] [place] [address] Baldo Bailey PA [address] [place] [address] Lumbar spondylosis (Primary Dx) Social [...] file 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
--- OUTSIDE RECORDS SUMMARY | 2024-06-14 23:25 | XMS_ITS | Encounter Summary ---
Author Organization [facility] Healthcare Address [address] [place] [address] Care Team Providers Care Candy Bar Attendant Name Role Phone Criss Blanco MD Unavailable Lashay Downs RN Unavailable Unavailab Duke Goodwin RN Unavailable UnavailNgozi Husain MD Unavailable [phone] Jose Roberto Marx MD Unavailable [phone] Grey Tomas MD Primary Care Provider [phone] Reason for Referral * MRI/CAT/PET Scan (Routine) - Closed Specialty Diagnoses / Procedures Referred By Alcira forrest Referred To Contact Radiology Diagnoses SDH (subdural hematoma) (HCC) Procedures CT Head WO Contrast Baldo Bailey PA [address] [facility] [address] [place] [address] Phone: tel: fax: [address] [place] [address] Referral ID Status Reason Start Date Expiration Date Visits Re quested Visits Authorized [id number] Closed 10/10/2022 11/09/2023 1 1 Reason for Visit * MRI/CAT/PET Scan (Routine) - Closed Specialty Diagnoses / Procedures Referred By Contac t Referred To Contact Radiology Diagnoses SDH (subdural hematoma) (HCC) Procedures CT Head WO Contrast Baldo Bailey PA [address] [place] [address] Phone: tel: fax: [facility] [place] [address] Referral ID Status Reason Start Date Expiration Date Visits Re quested Visits Authorized [id number] Closed 10/10/2022 11/09/2023 1 1 Encounter Details Date Type Department Care Team (Latest Contact Info) Description 01/17/2023 11:10 AM CDT - 01/17/2023 11:59 PM CDT Hospital Encounter [facility] Imaging [address] [id number] SDH (subdural hematoma) (HCC) Discharge Disposition: Discharge [...] on file Legal Sex Male 12:56 AM ROLL 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 Gender Identity Not on file Sexual Orientation Not on file 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 on file Not on natalie e documented as of this encounter Medications at Time of Discharge finasteride (PROSCAR) 5 mg tabletIndications :benign prostatic hyperplasia with lower urinary tract sx Take 1 tablet (5 mg total) by mouth trucksmith before breakfast multivitamin capsuleIndication s:Vitamin Deficiency Prevention [...] mg tablet Take 10 mg by mouth trucksmith before breakfast 3 famotidine (PEPCID) 40 mg tablet Take 1 tablet (40 mg total) by mouth nightly 03/28/2020 3 fluticasone propionate (FLONASE) 50 mcg/actuation nasal spray Administer 1 spray into each nostril trucksmith before breakfast 04/12/2022 3 folic acid (FOLVITE) 1 mg tablet Take 1 tablet (1 mg total) by mouth trucksmith before breakfast 3 hydrOXYchloroQUIN E (PLAQUENIL) 200 [...] 2 capsules (40 mg total) by mouth trucksmith before breakfast 3 oxyCODONE (ROXICODONE) 5 mg [...] on stairs Contact your local community or [facility] for information on exercise, fall prevention programs, [...] hemorrhage documented in this encounter Care Teams Candy Bar Attendant Relationship Specialty Start Date End Date Grey Tomas MD PCP - General Family Practice 07/27/22 [place] [address] [facility] [address] [place] [address] Rheumatology 02/21/17 Lashay Downs, RN Registered Nurse Pain Management 06/17/17 Duke Do, RN Registered Nurse 09/09/17 Ngozi Petty MD Radiation Oncologist Radiation Oncology 02/05/19 Jose Roberto Marx MD Referring Physician Otolaryngology 02/05/19 documented as of this encounter
--- OUTSIDE RECORDS SUMMARY | 2024-06-14 23:25 | XMS_ITS | Encounter Summary ---
Author Organization [facility] Address [address] [place] [address] Phone Care Team Providers Care Cashier General Name Role Phone Criss Blanco MD Unavailable Lashay Downs RN Unavailable Unavailab Duke Goodwin RN Unavailable UnavailNgozi Husain MD Unavailable [phone] Jose Roberto Marx MD Unavailable [phone] Encounter Details Date Type Department Care Team (Late st Contact Info) Description 07/18/2022 Telephone [facility] Department of Surgery [address] [facility] Advanced Medicine 12th [place] [address] [place] [address] Mark Potter Social History Tobacco [...] on file Legal 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 Male 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 Gender Identity Not on file Sexual Orientation [...] HE WAS PROVIDED THE NEUROSURGERY PHONE# OF [phone].MARK TENANT FIREFIGHTER documented in this encounter Plan of Treatment [...] on filedocumented in this encounter Care Teams Cashier General Relationship Specialty [place] [address] [facility] [address] [place] [address] Rheumatology 02/21/17 Lashay Downs, RN Registered Nurse Pain Management 06/17/17 Duke Do, RN Registered Nurse 09/09/17 Ngozi Petty MD Radiation Oncologist Radiation Oncology 02/05/19 Jose Roberto Marx MD Referring Physician Otolaryngology 02/05/19 documented as of this encounter
--- OUTSIDE RECORDS SUMMARY | 2024-06-14 23:25 | XMS_ITS | Encounter Summary ---
Author Organization [facility] Address [address] [place] [address] Phone Care Team Providers Care Motorcycle Police Officer Name Role Phone Criss Blanco MD Unavailable Lashay Downs RN Unavailable Unavailab Duke Goodwin RN Unavailable UnavailNgozi Husain MD Unavailable [phone] Jose Roberto Marx MD Unavailable [phone] Grey Tomas MD Primary Care Provider [phone] Reason for Visit * Reason Comments Follow-up Encounter Details Date Type Department Care Team (Late st Contact Info) Description 10/31/2022 2:00 PM CDT Office Visit 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 DISPOSITION: 6-8 weeks Dariana Herrera MD Sizing Machine Tender [facility] Division [...] on stairs Contact your local community or [facility] for information on exercise, fall prevention programs, or options for improving home safety. 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
--- OUTSIDE RECORDS SUMMARY | 2024-06-14 23:25 | XMS_ITS | Encounter Summary ---
Author Organization [facility] Address [address] [place] [address] Phone Care Team Providers Care Registered Nurse Name Role Phone Criss Blanco MD Unavailable Lashay Downs RN Unavailable Unavailab Duke Goodwin RN Unavailable UnavailNgozi Husain MD Unavailable [phone] Jose Roberto Marx MD Unavailable [phone] Grey Tomas MD Primary Care Provider [phone] Encounter Details Date Type Department Care Team (Late st Contact Info) Description 10/23/2022 [id number] [facility] Medical Office Building [address] [place] [address] Carlie Katz Social History Tobacco [...] file 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 Patient will need to arrive at [facility] for registration at 11:[address] is scheduled for 12:20 pm. Patient will follow up with [facility] in Medical Office [facility] [phone] [phone] at 1:15 pm (with arrival time of [...] months with apt same day here at [facility]? Also can we repeat his lumbar xrays [...] on stairs Contact your local community or [facility] for information on exercise, fall prevention programs, or options for improving home safety. documented as of this encounter Visit Diagnoses Not on filedocumented in this encounter Care Teams Registered Nurse Relationship Specialty Start Date End Date Grey Tomas MD PCP - General Family Practice 07/27/22 [place] [address] [facility] [address] [place] [address] Rheumatology 02/21/17 Lashay Downs, RN Registered Nurse Pain Management 06/17/17 Duke Do, RN Registered Nurse 09/09/17 Ngozi Petty MD Radiation Oncologist Radiation Oncology 02/05/19 Jose Roberto Marx MD Referring Physician Otolaryngology 02/05/19 documented as of this encounter
--- OUTSIDE RECORDS SUMMARY | 2024-06-14 23:25 | XMS_ITS | Encounter Summary ---
Author Organization [facility] Healthcare Address [address] [place] [address] Care Team Providers Care Incident Engineer Name Role Phone Criss Blanco MD Unavailable Lashay Downs RN Unavailable Unavailab Duke Goodwin RN Unavailable UnavailNgozi Husain MD Unavailable [phone] Jose Roberto Marx MD Unavailable [phone] Grey Tomas MD Primary Care Provider [phone] Reason for Referral * MRI/CAT/PET Scan (Routine) - Closed Specialty Diagnoses / Procedures Referred By Alcira forrest Referred To Contact Radiology Diagnoses SDH (subdural hematoma) (HCC) Procedures CT Head WO Contrast Baldo Bailey PA [address] [facility] [address] [place] [address] Phone: tel: fax: [place] [address] [place] [address] Referral ID Status Reason Start Date Expiration Date Visits Re quested Visits Authorized [id number] Closed 08/08/2022 09/07/2023 1 1 Reason for Visit * MRI/CAT/PET Scan (Routine) - Closed Specialty Diagnoses / Procedures Referred By Contac adriane Referred To Contact Radiology Diagnoses SDH (subdural hematoma) (HCC) Procedures CT Head WO Contrast Baldo Bailey PA [address] [place] [address] Phone: tel: fax: [facility] [place] [address] Referral ID Status Reason Start Date Expiration Date Visits Re quested Visits Authorized [id number] Closed 08/08/2022 09/07/2023 1 1 Encounter Details Date Type Department Care Team (Latest Contact Info) Description 10/10/2022 10:44 AM CDT - 10/10/2022 11:59 PM CDT Hospital Encounter [facility] [id number] [address] [id number] SDH (subdural hematoma) (HCC) Discharge Disposition: Discharge [...] on file 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 Gender Identity Not on file Sexual Orientation Not on file 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 on file Not on natalie e documented as of this encounter Medications at Time of Discharge finasteride (PROSCAR) 5 mg tabletIndications :benign prostatic hyperplasia with lower urinary tract sx Take 1 tablet (5 mg total) by mouth early intervention school psychologist before breakfast multivitamin capsuleIndication s:Vitamin Deficiency Prevention [...] tablet Take 10 mg by mouth early intervention school psychologist before breakfast 3 famotidine (PEPCID) 40 mg tablet Take 1 tablet (40 mg total) by mouth nightly 03/28/2020 3 fluticasone propionate (FLONASE) 50 mcg/actuation nasal spray Administer 1 spray into each nostril early intervention school psychologist before breakfast 04/12/2022 3 folic acid (FOLVITE) 1 mg tablet Take 1 tablet (1 mg total) by mouth early intervention school psychologist before breakfast 3 levETIRAcetam (KEPPRA) 500 mg [...] capsules (40 mg total) by mouth early intervention school psychologist before breakfast 3 oxyCODONE (ROXICODONE) 5 mg [...] on stairs Contact your local community or [facility] center for information on exercise, fall prevention [...] hemorrhage documented in this encounter Care Teams Incident Engineer Relationship Specialty Start Date End Date Grey Tomas MD PCP - General Family Practice 07/27/22 [place] [address] [address] Rheumatology 02/21/17 Lashay Downs, GAY Registered Nurse Pain Management 06/17/17 Duke Do, GAY Registered Nurse 09/09/17 Ngozi Petty MD Radiation Oncologist Radiation Oncology 02/05/19 Jose Roberto Marx MD Referring Physician Otolaryngology 02/05/19 documented as of this encounter
--- OUTSIDE RECORDS SUMMARY | 2024-06-14 23:25 | XMS_ITS | Encounter Summary ---
Author Organization 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) Viraj Romeo, PA [address] [place] [address] Phone: tel: fax: [facility] (All Locations) Referral ID Status Reason Start Date Expiration Date V isits Requested Visits Authorized [id number] Closed Specialty Services Required 03/20/2022 06/02/2023 12 12 Encounter Details Date Type Department Care Team (Late st Contact Info) Description 09/19/2022 10:20 AM CDT Office Visit [facility] ENT [address] [facility] Medical Office Building [address] [place] [address] Nakita Herrera MD [address] [place] [address] Carcinoma in situ of larynx (Primary Dx) [...] on file 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 DISPOSITION:6 weeks Dariana Herrera MD Business Systems Technician [facility] Voice & Airway [...] Primary documented in this encounter Care Teams Unstacker Relationship Specialty Start Date End Date Grey Tomas MD PCP - General Family Practice 07/27/22 [place] [address] [facility] [address] [place] [address] Rheumatology 02/21/17 Lashay Downs, GAY Registered Nurse Pain Management 06/17/17 Duke Do, GAY Registered Nurse 09/09/17 Ngozi Petty MD Radiation Oncologist Radiation Oncology 02/05/19 Jose Roberto Marx MD Referring Physician Otolaryngology 02/05/19 documented as of this encounter
--- OUTSIDE RECORDS SUMMARY | 2024-06-14 23:25 | XMS_ITS | Encounter Summary ---
Author Organization [facility] Healthcare Address [address] [place] [address] Care Team Providers Care Product Sales Representative Name Role Phone Criss Blanco MD Unavailable Lashay Downs RN Unavailable Unavailab Duke Goodwin RN Unavailable UnavailNgozi Husain MD Unavailable [phone] Jose Roberto Marx MD Unavailable [phone] Grey Tomas MD Primary Care Provider [phone] Encounter Details Date Type Department Care Team (Latest Contact Info) Description 08/13/2022 12:47 PM CDT - 08/13/2022 11:59 PM CDT Hospital Encounter [facility] [address] [place] [address] Discharge Disposition: Discharge to home [...] on file 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 Gender Identity Not on file Sexual Orientation Not on file 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 Not on file Not on natalie e documented as of this encounter Medications at Time of Discharge finasteride (PROSCAR) 5 mg tabletIndications :benign prostatic hyperplasia with lower urinary tract sx Take 1 tablet (5 mg total) by mouth waiter before breakfast multivitamin capsuleIndication s:Vitamin Deficiency Prevention [...] mg tablet Take 10 mg by mouth waiter before breakfast 3 famotidine (PEPCID) 40 mg tablet Take 1 tablet (40 mg total) by mouth nightly 03/28/2020 3 fluticasone propionate (FLONASE) 50 mcg/actuation nasal spray Administer 1 spray into each nostril waiter before breakfast 04/12/2022 3 folic acid (FOLVITE) 1 mg tablet Take 1 tablet (1 mg total) by mouth waiter before breakfast 3 levETIRAcetam (KEPPRA) 500 mg [...] 2 capsules (40 mg total) by mouth waiter before breakfast 3 oxyCODONE (ROXICODONE) 5 mg [...] Results * eGFR (08/13/2022 9:48 AM CDT) [facility] eGFR 68 mL/min/1. 73 m2 [facility] Comment: Interpretive Data Reference Interval Normal ?>/= [...] MD LAB BLOOD ORDERABLES Final Resul t [facility] [address] Department [place] [address] * Differential, auto (08/13/2022 9:48 AM CDT) Neutrophil abs 3.5 1.7 - 6.5 K/cumm [facility] Imm gran abs 0.0 0.0 - 0.1 K/cumm [facility] Lymphocyte abs 0.8 0.8 - 3.3 K/cumm [facility] Monocyte abs 0.3 0.2 - 0.8 K/cumm [facility] Eosinophil abs 0.2 0.0 - 0.5 K/cumm [facility] Basophil abs 0.0 0.0 - 0.1 K/cumm [facility] Neutrophil pct 72.2 % [facility] Comment: Interpretive Data Percent cell count reference ranges are not reported, since discordance with absolute values may lead to misinterpretation of CBC data. Current Interpretive Data was last revised on 2017. Imm gran pct 0.2 % [facility] Comment: Interpretive Data Percent cell count reference ranges are not reported, since discordance with absolute values may lead to misinterpretation of CBC data. Current Interpretive Data was last revised on 2017. Lymphocyte pct 17.0 % [facility] Comment: Interpretive Data Percent cell count reference ranges are not reported, since discordance with absolute values may lead to misinterpretation of CBC data. Current Interpretive Data was last revised on 2017. Monocyte pct 5.8 % [facility] Comment: Interpretive Data Percent cell count reference ranges are not reported, since discordance with absolute values may lead to misinterpretation of CBC data. Current Interpretive Data was last revised on 2017. Eosinophil pct 4.0 % [facility] Comment: Interpretive Data Percent cell count reference ranges are not reported, since discordance with absolute values may lead to misinterpretation of CBC data. Current Interpretive Data was last revised on 2017. Basophil pct 0.8 % [facility] Comment: Interpretive Data Percent cell count reference ranges are not reported, since discordance with absolute values may lead to misinterpretation of CBC data. Current Interpretive Data was last revised on 2017. Blood 08/13/2022 9:48 AM CDT 08/13/2022 1:19 PM CDT us Alissa Fuentes MD LAB BLOOD ORDERABLES Final Resul t [facility] [address] Department [place] [address] * (ABNORMAL) Comprehensive metabolic panel (08/13/2022 9:48 AM CDT) Sodium 144 135 - 145 mmol/L [facility] Potassium, pl 3.9 3.3 - 4.9 mmol/L [facility] Chloride 108 97 - 110 mmol/L [facility] CO2 27 22 - 32 mmol/L [facility] Anion gap 9 2 - 15 mmol/L [facility] BUN 21 8 - 25 mg/dL [facility] Creatinine 1.10 0.80 - 1.30 mg/dL [facility] Glucose 103 70 - 199 mg/dL [facility] Comment: Interpretive Data Fasting glucose >/= 126 [...] 2022. Calcium 9.0 8.5 - 10.3 mg/dL [facility] Bilirubin, total 0.6 0.1 - 1.2 mg/dL [facility] Protein, pl 6.3(L) 6.5 - 8.5 g/dL [facility] Albumin 4.5 3.5 - 5.0 g/dL [facility] Alk phos 78 40 - 130 Units/L [facility] ALT 15 7 - 55 Units/L [facility] AST 17 10 - 50 Units/L [facility] Blood 08/13/2022 9:48 AM CDT 08/13/2022 1:19 PM CDT us Alissa Fuentes MD LAB BLOOD ORDERABLES Final Resul t Performing Organization Address [facility] de Phone Number [facility] [address] [facility] [place] [address] * (ABNORMAL) CBC with auto differential (08/13/2022 9:48 AM CDT) WBC 4.8 3.8 - 9.9 K/cumm [facility] Hgb 14.7 13.0 - 17.5 g/dL [facility] Hct 45.2 38.9 - 50.3 % [facility] Plt 156 150 - 400 K/cumm [facility] MPV 11.6 9.1 - 12.3 fL [facility] RBC 4.67 4.30 - 5.80 M/cumm [facility] MCV 96.8(H) 81.3 - 96.4 fL [facility] MCH 31.5 27.1 - 33.3 pg [facility] MCHC 32.5 32.3 - 35.7 g/dL [facility] RDW CV 13.4 11.1 - 14.9 % [facility] RDW SD 47.2 35.7 - 48.1 fL [facility] NRBC abs 0.00 0.00 - 0.01 K/cumm [facility] Blood 08/13/2022 9:48 AM CDT 08/13/2022 1:19 PM CDT us Alissa Fuentes MD LAB BLOOD ORDERABLES Final Resul t Performing Organization Address [facility]/ZIP Co de Phone Number [facility] [address] Department [employer] [place] [address] documented in this encounter Visit Diagnoses Not on filedocumented in this encounter Care Teams Product Sales Representative Relationship Specialty Start Date End Date Grey Tomas MD PCP - General Family Practice 07/27/22 [place] [address] [facility] [address] [place] [address] Rheumatology 02/21/17 Lashay Downs, RN Registered Nurse Pain Management 06/17/17 Duke Do, RN Registered Nurse 09/09/17 Ngozi Petty MD Radiation Oncologist Radiation Oncology 02/05/19 Jose Roberto Marx MD Referring Physician Otolaryngology 02/05/19 documented as of this encounter
--- OUTSIDE RECORDS SUMMARY | 2024-06-14 23:25 | XMS_ITS | Encounter Summary ---
Author Organization [facility] Healthcare Address [address] [place] [address] Care Team Providers Care Continuous Loft Operator Name Role Phone Criss Blanco MD Unavailable Lashay Downs RN Unavailable Unavailab Duke Goodwin RN Unavailable UnavailNgozi Husain MD Unavailable [phone] Jose Roberto Marx MD Unavailable [phone] Grey Tomas MD Primary Care Provider [phone] Reason for Referral * Diagnostic Imaging (Routine) - Closed Specialty Diagnoses / Procedures Referred By Contac t Referred To Contact Diagnoses Low back pain, non-specific Lumbar spondylosis Procedures XR Spine Lumbar Ap Lat Flex Ext min 4 Views Baldo Bailey PA [address] [facility] [address] [place] [address] Phone: tel: fax: [place] [address] [place] [address] Referral ID Status Reason Start Date Expiration Date Visits Re quested Visits Authorized [id number] Closed 10/10/2022 11/09/2023 1 1 Reason for Visit * Diagnostic Imaging (Routine) - Closed Specialty Diagnoses / Procedures Referred By Contac t Referred To Contact Diagnoses Low back pain, non-specific Lumbar spondylosis Procedures XR Spine Lumbar Ap Lat Flex Ext min 4 Views Baldo Bailey PA [address] [place] [address] Phone: tel: fax: [facility] [address] [address] [address] Referral ID Status Reason Start Date Expiration Date Visits Re quested Visits Authorized [id number] Closed 10/10/2022 11/09/2023 1 1 Encounter Details Date Type Department Care Team (Latest Contact Info) Description 10/10/2022 12:54 PM CDT - 10/10/2022 11:59 PM CDT Hospital Encounter [id number] [address] [facility] [address] [place] [address] Low back [...] on file 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 Gender Identity Not on file Sexual Orientation Not on file 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 on file Not on natalie e documented as of this encounter Medications at Time of Discharge finasteride (PROSCAR) 5 mg tabletIndications :benign prostatic hyperplasia with lower urinary tract sx Take 1 tablet (5 mg total) by mouth director of agriculture before breakfast multivitamin capsuleIndication s:Vitamin Deficiency Prevention [...] mg tablet Take 10 mg by mouth director of agriculture before breakfast 3 famotidine (PEPCID) 40 mg tablet Take 1 tablet (40 mg total) by mouth nightly 03/28/2020 3 fluticasone propionate (FLONASE) 50 mcg/actuation nasal spray Administer 1 spray into each nostril director of agriculture before breakfast 04/12/2022 3 folic acid (FOLVITE) 1 mg tablet Take 1 tablet (1 mg total) by mouth director of agriculture before breakfast 3 levETIRAcetam (KEPPRA) 500 mg [...] 2 capsules (40 mg total) by mouth director of agriculture before breakfast 3 oxyCODONE (ROXICODONE) 5 mg [...] by: Mata Espitia MD us Baldo Luke Deerfield PA IMG XR PROCEDURES Final R esult documented in this encounter Visit Diagnoses Diagnosis Low back pain, non-specific Lumbar spondylosis Lumbosacral spondylosis without myelopathy documented in this encounter Care Teams Continuous Loft Operator Relationship Specialty Start Date End Date Grey Tomas MD PCP - General Family Practice 07/27/22 [place] [address] [facility] [address] [place] [address] Rheumatology 02/21/17 Lashay Downs, RN Registered Nurse Pain Management 06/17/17 Duke Do, RN Registered Nurse 09/09/17 Ngozi Petty MD Radiation Oncologist Radiation Oncology 02/05/19 Jose Roberto Marx MD Referring Physician Otolaryngology 02/05/19 documented as of this encounter
--- OUTSIDE RECORDS SUMMARY | 2024-06-14 23:25 | XMS_ITS | Encounter Summary ---
Author Organization [facility] Address [address] [place] [address] Phone Care Team Providers Care Switch House Operator Name Role Phone Criss Blanco MD Unavailable Lashay Downs RN Unavailable Unavailab Duke Goodwin RN Unavailable UnavailNgozi Husain MD Unavailable [phone] Jose Roberto Marx MD Unavailable [phone] Grey Tomas MD Primary Care Provider [phone] Reason for Referral * MRI/CAT/PET Scan (Routine) - Closed Specialty Diagnoses / Procedures Referred By Conthermila t Referred To Contact Radiology Diagnoses SDH (subdural hematoma) (HCC) Procedures CT Head WO Contrast Baldo Bailey PA [address] [place] [address] Phone: tel: fax: [place] [address] [address] [place] [address] Referral ID Status Reason Start Date Expiration Date Visits Re quested Visits Authorized [id number] Closed 10/10/2022 11/09/2023 1 1 * Diagnostic Imaging (Routine) - Closed Specialty Diagnoses / Procedures Referred By Contac t Referred To Contact Diagnoses Low back pain, non-specific Lumbar spondylosis Procedures XR Spine Lumbar Ap Lat Flex Ext min 4 Views Baldo Bailey PA [address] [place] [address] Phone: tel: fax: [facility] [address] [place] [address] Referral ID Status Reason Start Date Expiration Date Visits Re quested Visits Authorized [id number] Closed 10/10/2022 11/09/2023 1 1 Encounter Details Date Type Department Care Team (Late st Contact Info) Description 10/10/2022 1:45 PM CDT Office Visit [facility] Neurosurgery [address] [facility] Medical Office Building [address] [place] [address] Baldo Bailey PA [address] [place] [address] Low back pain, non-specific (Primary Dx); Lumbar [...] on file 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 [facility] he was found [...] mechanical fall that occurred on 07/01/2022, [facility]. He does have a chronic history of [...] mg tablet, Take 10 mg by mouth inspector water pollution control before breakfast (Patient not taking: Reported on 10/04/2022), Disp: , Rfl: famotidine (PEPCID) 40 mg tablet, Take 1 tablet (40 mg total) by mouth nightly, Disp: , Rfl: finasteride (PROSCAR) 5 mg tablet, Take 1 tablet (5 mg total) by mouth inspector water pollution control before breakfast, Disp: , Rfl: fluticasone propionate (FLONASE) 50 mcg/actuation nasal spray, Administer 1 spray into each nostrilearly morning before breakfast, Disp: , Rfl: folic acid (FOLVITE) 1 mg tablet, Take 1 tablet (1 mg total) by mouth inspector water pollution control before breakfast, Disp: , Rfl: levETIRAcetam (KEPPRA) [...] 2 capsules (40 mg total) by mouth inspector water pollution control before breakfast, Disp: , Rfl: omeprazole (PriLOSEC) [...] vision. He is planning to see his community living coach in the coming weeks to discuss some [...] hemorrhage documented in this encounter Care Teams Switch House Operator Relationship Specialty Start Date End Date Grey Tomas MD PCP - General Family Practice 07/27/22 [place] [address] [facility] [address] [place] [address] Rheumatology 02/21/17 Lahsay Downs, RN Registered Nurse Pain Management 06/17/17 Duke Do, RN Registered Nurse 09/09/17 Ngozi Petty MD Radiation Oncologist Radiation Oncology 02/05/19 Jose Roberto Marx MD Referring Physician Otolaryngology 02/05/19 documented as of this encounter
--- OUTSIDE RECORDS SUMMARY | 2024-06-14 23:25 | XMS_ITS | Encounter Summary ---
Author Organization [facility] Address [address] [address] Care Team Providers Care Sql Server Bi Developer Name Role Phone Criss Blanco MD Unavailable Lashay Downs RN Unavailable Unavailab Duke Goodwin RN Unavailable UnavailNgozi Husain MD Unavailable [phone] Jose Roberto Marx MD Unavailable [phone] Reason for Referral * Procedure (Routine) - Closed Specialty Diagnoses / Procedures Referred By Contac t Referred To Contact Diagnoses Impingement syndrome of left shoulder Procedures Large Joint (Hip, Knee, Shoulder) Injection: L subacromial bursa Uriah Calix NP [address] [facility] [place] [address] Phone: tel: fax: [facility] Referral ID Status Reason Start Date Expiration Date Visits Re quested Visits Authorized [id number] Closed 07/13/2022 08/12/2023 1 1 STIC TRAVEL CONSULTANT * Diagnostic Imaging (Routine) - Closed Specialty Diagnoses / Procedures Referred By Contac t Referred To Contact Diagnoses Left shoulder pain, unspecified chronicity Procedures XR Shoulder Left 2 or More Views Uriah Calix NP [address] [place] [address] [address] [place] [address] Phone: tel: fax: [facility] Referral ID Status Reason Start Date Expiration Date Visits Re quested Visits Authorized [id number] Closed 07/13/2022 08/12/2023 1 1 STIC TRAVEL CONSULTANT Reason for Visit * Reason Comments Pain Encounter Details Date Type Department Care Team (Late st Contact Info) Description 07/13/2022 11:15 AM DOMESTIC TRAVEL CONSULTANT Office Visit [facility] Orthopedics and Sports Medicine [address] [facility] [address] [place] [address] Uriah Calix NP [address] 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 on file Not on natalie e documented as of this encounter Last Filed Vital Signs Vital Sign Reading Time Taken Comments Blood Pressure 110/81 07/13/2022 10:53 AM DOMESTIC TRAVEL CONSULTANT Pulse 72 07/13/2022 10:53 AM DOMESTIC TRAVEL CONSULTANT Temperature - - Respiratory Rate - - Oxygen Saturation - - Inhaled Oxygen Concentration - - Weight 100.2 kg (221 lb) 07/13/2022 10:53 AM DOMESTIC TRAVEL CONSULTANT Height 185.4 cm (6' 1 ) 07/13/2022 10:53 AM DOMESTIC TRAVEL CONSULTANT Body Mass Index 29.16 07/13/2022 10:53 AM DOMESTIC TRAVEL CONSULTANT documented in this encounter Progress Notes * Uriah Calix, TRAIN RESERVATION CLERK - 07/13/2022 11:15 AM CSTAssociated Order(s): Large [...] ??? 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 Depression ??? Gastric reflux ??? Gastroesophageal [...] Had done at [facility] in [place] ??? HX OTHER MEDICAL bladder infection ??? HX OTHER MEDICAL kidney stone ??? Low back pain ??? Migraine ??? Rheumatoid arthritis (HCC) Current Medications: Current Outpatient Medications Medication Sig Dispense Refill ??? cetirizine (ZyrTEC) 10 mg tablet Take 10 mg by mouth manager insurance before breakfast ??? famotidine (PEPCID) 40 mg tablet Take 40 mg by mouth nightly ??? finasteride (PROSCAR) 5 mg tablet Take 5 mg by mouth manager insurance before breakfast ??? methotrexate 2.5 mg tablet Take 6 tablets by mouth once a week saturday ??? montelukast (SINGULAIR) 10 mg tablet Take 10 mg by mouth nightly ??? multivitamin capsule Take 1 capsule by mouth every morning ??? omeprazole (PriLOSEC) 20 mg capsule Take 40 mg by mouth manager insurance before breakfast ??? rOPINIRole (REQUIP) 1 mg [...] Administer 1 spray into each nostril manager insurance before breakfast (Patient not taking: Reported on 07/13/2022) ??? folic acid (FOLVITE) 1 mg tablet Take 1 mg by mouth manager insurance before breakfast (Patient nottaking: Reported on 07/13/2022) [...] arm: positive Drop arm: negative Orville's: orville's [place]'s: positive Speed's: positive Imaging Findings: Large Joint [...] Rendering Provider & Department: Uriah Calix NP [facility] ORTHOPEDICS AND SPORTS MEDICINE [address] [place] [id number] July 13, 2022 11:24 AM STIC TRAVEL CONSULTANT documented in this encounter Miscellaneous Notes * Addendum Note - Lanette Meek MA - 07/13/2022 11:15 AM CSTAddended by: LANETTE MEEK on: 07/13/2022 11:54 AM Modules accepted: Orders STIC TRAVEL CONSULTANT documented in this encounter Plan of Treatment [...] on stairs Contact your local community or [facility] for information on exercise, fall prevention programs, or options for improving home safety. documented as of this encounter Procedures Procedure Name Priority Date/Time Associated Diagnosis Comments [place] ARTHROCENTESIS ASPIR&/INJ MAJOR JT/BURSA W/O US Routine 07/13/2022 11:15 AM DOMESTIC TRAVEL CONSULTANT Impingement syndrome of left shoulder XR SHOULDER LEFT 2 OR MORE VIEWS Routine 07/13/2022 10:44 AM DOMESTIC TRAVEL CONSULTANT Left shoulder pain, unspecified chronicity documented in this encounter Results * OH ARTHROCENTESIS ASPIR&/INJ MAJOR JT/BURSA W/O US (07/13/2022 11:15 AM DOMESTIC TRAVEL CONSULTANT) Narrative Uriah Calix NP - 07/13/2022 11:15 AM DOMESTIC TRAVEL CONSULTANT Uriah Calix NP ? 07/13/2022 11:27 AM [...] the procedure well with no immediate complications Uriah Calix TRAIN RESERVATION CLERK IN CLINIC/BEDSIDE ORDERA BLES Final Result * XR Shoulder Left 2 or More Views (07/13/2022 10:44 AM DOMESTIC TRAVEL CONSULTANT) Anatomical Region Laterality Modality Upper Extremities, Shoulder Left Digi demetria Radiography Narrative 07/13/2022 11:27 AM DOMESTIC TRAVEL CONSULTANT X-rays of the shoulder demonstrate no fracture subluxation or osseous lesions. Moderate AC and GH DJD noted. Uriah Calix TRAIN RESERVATION CLERK IMG XR PROCEDURES Final Result documented in [...] of Local Anesthesia Given 07/13/2022 11:26 AM DOMESTIC TRAVEL CONSULTANT 2 mL Left Shoulder methylPREDNISolone acetate (DEPO-medrol) injection 80 mg 80 mg, intra-articular, One-Time Injection, Starting on Sat07/13/22 at 1126, For 1 doseIndications:Impingement syndrome of left shoulder Given 07/13/2022 11:26 AM DOMESTIC TRAVEL CONSULTANT 80 mg Left Shoulder documented in this encounter Care Teams Sql Server Bi Developer Relationship Specialty [place] [address] [address] Rheumatology 02/21/17 Lashay Downs, GAY Registered Nurse Pain Management 06/17/17 Duke Do, GAY Registered Nurse 09/09/17 Ngozi Petty MD Radiation Oncologist Radiation Oncology 02/05/19 Jose Roberto Marx MD Referring Physician Otolaryngology 02/05/19 documented as of this encounter
--- OUTSIDE RECORDS SUMMARY | 2024-06-14 23:25 | XMS_ITS | Encounter Summary ---
Author Organization [facility] Address [address] [place] [address] Phone Care Team Providers Care Environmental Aide Name Role Phone Criss Blanco MD Unavailable Lashay Downs RN Unavailable Unavailab Duke Goodwin RN Unavailable UnavailNgozi Husain MD Unavailable [phone] Jose Roberto Marx MD Unavailable [phone] Grey Tomas MD Primary Care Provider [phone] Encounter Details Date Type Department Care Team (Late st Contact Info) Description 01/17/2023 1:15 PM CDT Office Visit [facility] Neurosurgery [facility] Medical Office Building 4 [address] [place] [address] Baldo Bailey PA [address] [place] [address] Low back pain, non-specific (Primary [...] on file Legal Sex Male 12:56 AM DRIER HELPER Gender Identity Not on file Sexual [...] you recall, the patient was transferred to [facility] from [facility] in June of this year with findings [...] (two) times a day, Disp: , Rfl: rinhtegioz-hzbjkmmx-fraryzstgg (Breztri Aerosphere) 160-9-4.8 mcg/actuation HFA aerosol inhaler, Inhale 2 puffs every 12 hours, Disp: , Rfl: cetirizine (ZyrTEC) 10 mg tablet, Take 10 mg by mouth early childhood education coordinator before breakfast (Patient not taking: Reported on 10/04/2022), Disp: , Rfl: famotidine (PEPCID) 40 mg tablet, Take 1 tablet (40 mg total) by mouth nightly, Disp: , Rfl: finasteride (PROSCAR) 5 mg tablet, Take 1 tablet (5 mg total) by mouth early childhood education coordinator before breakfast, Disp: , Rfl: fluticasone propionate (FLONASE) 50 mcg/actuation nasal spray, Administer 1 spray into each nostrilearly morning before breakfast, Disp: , Rfl: folic acid (FOLVITE) 1 mg tablet, Take 1 tablet (1 mg total) by mouth early childhood education coordinator before breakfast, Disp: , Rfl: levETIRAcetam (KEPPRA) [...] (40 mg total) by mouth early childhood education coordinator before breakfast, Disp: , Rfl: omeprazole (PriLOSEC) [...] normal turgor color. Cap refills normal limits. Chainstitch Sewing Machine Operator strength is intact equal. He does not [...] seen via transfer from outside hospital to [facility] staffed with after a mechanical fall [...] on stairs Contact your local community or [facility] for information on exercise, fall prevention programs, or options for improving home safety. documented as of this encounter Visit Diagnoses Diagnosis Low back pain, non-specific- Primary Lumbar spondylosis Lumbosacral spondylosis without myelopathy SDH (subdural hematoma) (HCC) Subdural hemorrhage documented in this encounter Care Teams Environmental Aide Relationship Specialty Start Date End Date Grey Tomas MD PCP - General Family Practice 07/27/22 [place] [address] [facility] [address] [place] [address] Rheumatology 02/21/17 Lashay Downs, RN Registered Nurse Pain Management 06/17/17 Duke Do, RN Registered Nurse 09/09/17 Ngozi Petty MD Radiation Oncologist Radiation Oncology 02/05/19 Jose Roberto Marx MD Referring Physician Otolaryngology 02/05/19 documented as of this encounter
--- OUTSIDE RECORDS SUMMARY | 2024-06-14 23:25 | XMS_ITS | Encounter Summary ---
Author Organization [facility] Address [address] [place] [address] Phone Care Team Providers Care Chrome Polisher Name Role Phone Criss Blanco MD Unavailable Lashay Downs RN Unavailable Unavailab Duke Goodwin RN Unavailable UnavailNgozi Husain MD Unavailable [phone] Jose Roberto Marx MD Unavailable [phone] Grey Tomas MD Primary Care Provider [phone] Encounter Details Date Type Department Care Team (Late st Contact Info) Description 08/09/2022 Telephone [place] [id number] [facility] Medical Office Building 4 [address] [place] [address] Carlie Katz Social History Tobacco [...] on file Legal Sex Male 12:56 AM WINDOW CASER Gender Identity Not on file Sexual Orientation [...] for 12:20 pm (11:50 am arrival) at [facility]. Follow Up office visit (including s-rays) is scheduled on 10/10/22 at 1:45 pm with ZOILA Morrison. Patient's home address was verified and he is aware that I am mailing out appt reminder letters andmap for the upcoming appts. ----- Message from ZOILA Murphy sent at 08/08/2022 3:53 PM WINDOW CASER ----- Regarding: CT head and apt in two months Can we please schedule a repeat CT head scan in two months from today's date and apt same day, all here at [facility]? Patient will also need lumbar xrays, scoliosis 6-view, images to evaluate his lumbar spine when he returns. OW CASER OW CASER documented in this encounter Plan of Treatment [...] on stairs Contact your local community or [facility] for information on exercise, fall prevention programs, or options for improving home safety. documented as of this encounter Visit Diagnoses Not on filedocumented in this encounter Care Teams Chrome Polisher Relationship Specialty Start Date End Date Grey Tomas MD PCP - General Family Practice 07/27/22 [place] [address] [facility] [address] [place] [address] Rheumatology 02/21/17 Lashay Downs, RN Registered Nurse Pain Management 06/17/17 Duke Do, RN Registered Nurse 09/09/17 Ngozi Petty MD Radiation Oncologist Radiation Oncology 02/05/19 Jose Roberto Marx MD Referring Physician Otolaryngology 02/05/19 documented as of this encounter
--- OUTSIDE RECORDS SUMMARY | 2024-06-14 23:25 | XMS_ITS | Encounter Summary ---
Author Organization [facility] Address [address] [facility] [address] [place] [address] Care Team Providers Care Groundskeeper Name Role Phone Criss Blanco MD Unavailable Lashay Downs RN Unavailable Unavailab Duke Goodwin RN Unavailable UnavailNgozi Husain MD Unavailable [phone] Jose Roberto Marx MD Unavailable [phone] Reason for Visit * Diagnostic Imaging (Routine) - Closed Specialty Diagnoses / Procedures Referred By Contac t Referred To Contact Diagnoses Left shoulder pain, unspecified chronicity Procedures XR Shoulder Left 2 or More Views Uriah Calix, JOSEPH [address] [place] [address] [address], [place] [address] Phone: tel: fax: [facility] Referral ID Status Reason Start Date Expiration Date Visits Re quested Visits Authorized [id number] Closed 07/13/2022 08/12/2023 1 1 Encounter Details Date Type Department Care Team (Latest Contact Info) Description 07/13/2022 7:46 AM LOCAL COORDINATOR - 07/13/2022 11:59 PM LOCAL COORDINATOR Hospital Encounter [facility] Medical [facility] Orthopedics and Sports Medicine 4 [facility] [address], [place] [id number] Discharge Disposition: Discharge to home or self [...] on file Legal Sex Male 12:56 AM LOCAL COORDINATOR Gender Identity Not on file Sexual Orientation Not on file 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 on file Not on natalie e documented as of this encounter Medications at Time of Discharge finasteride (PROSCAR) 5 mg tabletIndications :benign prostatic hyperplasia with lower urinary tract sx Take 1 tablet (5 mg total) by mouth customer business manager before breakfast multivitamin capsuleIndication s:Vitamin Deficiency Prevention [...] mg tablet Take 10 mg by mouth customer business manager before breakfast 3 famotidine (PEPCID) 40 mg tablet Take 1 tablet (40 mg total) by mouth nightly 03/28/2020 3 fluticasone propionate (FLONASE) 50 mcg/actuation nasal spray Administer 1 spray into each nostril customer business manager before breakfast 04/12/2022 3 folic acid (FOLVITE) 1 mg tablet Take 1 tablet (1 mg total) by mouth customer business manager before breakfast 3 levETIRAcetam (KEPPRA) 500 mg [...] 2 capsules (40 mg total) by mouth customer business manager before breakfast 3 oxyCODONE (ROXICODONE) 5 mg [...] stairs Contact your local community or [facility] for information on exercise, fall prevention programs, or options for improving home safety. documented as of this encounter Procedures Procedure Name Priority Date/Time Associated Diagnosis Comments XR SHOULDER LEFT 2 OR MORE VIEWS Routine 07/13/2022 10:44 AM LOCAL COORDINATOR Left shoulder pain, unspecified chronicity documented in this encounter Results * XR Shoulder Left 2 or More Views (07/13/2022 10:44 AM LOCAL COORDINATOR) Anatomical Region Laterality Modality Upper Extremities, Shoulder Left Digi demetria Radiography Narrative 07/13/2022 11:27 AM LOCAL COORDINATOR X-rays of the shoulder demonstrate no fracture subluxation or osseous lesions. Moderate AC and GH DJD noted. Uriah Calix MANAGER REHAB IMG XR PROCEDURES Final Result documented in this encounter Visit Diagnoses Not on filedocumented in this encounter Care Teams Groundskeeper Relationship Specialty [place] [address] [facility] [address] [place] [address] Rheumatology 02/21/17 Lashay Downs, RN Registered Nurse Pain Management 06/17/17 Duke Do, RN Registered Nurse 09/09/17 Ngozi Petty MD Radiation Oncologist Radiation Oncology 02/05/19 Jose Roberto Marx MD Referring Physician Otolaryngology 02/05/19 documented as of this encounter
--- OUTSIDE RECORDS SUMMARY | 2024-06-14 23:25 | XMS_ITS | Encounter Summary ---
Author Organization [facility] Address [address] [place] [address] Phone Care Team Providers Care Manager Of Financial Name Role Phone Criss Blanco MD Unavailable Lashay Downs RN Unavailable Unavailab Duke Goodwin RN Unavailable UnavailNgozi Husain MD Unavailable [phone] Jose Roebrto Marx MD Unavailable [phone] Encounter Details Date Type Department Care Team (Late st Contact Info) Description 07/10/2022 Telephone [facility] Neurosurgery [address] [facility] Advanced Medicine 6th [place] [address] [place] [address] Baldo Bailey PA [address] [place] [address] Social History Tobacco Use Types [...] on file Legal Sex Male 12:56 AM ORNAMENT STAPLER Gender Identity Not on file Sexual Orientation [...] at fu, pt voiced understanding to all. MENT STAPLER * Telephone Encounter - Sandra Stoner CMA [...] if this will be reevaluated after HCT. MENT STAPLER documented in this encounter Plan of Treatment [...] on stairs Contact your local community or [facility] for information on exercise, fall prevention programs, or options for improving home safety. documented as of this encounter Visit Diagnoses Not on filedocumented in this encounter Care Teams Manager Of Financial Relationship Specialty [place] [address] [facility] [address] [place] [address] Rheumatology 02/21/17 Lashay Downs, RN Registered Nurse Pain Management 06/17/17 Duke Do, RN Registered Nurse 09/09/17 Ngozi Petty MD Radiation Oncologist Radiation Oncology 02/05/19 Jose Roberto Marx MD Referring Physician Otolaryngology 02/05/19 documented as of this encounter
--- OUTSIDE RECORDS SUMMARY | 2024-06-14 23:25 | XMS_ITS | Encounter Summary ---
Author Organization [facility] Address [address] [place] [address] Care Team Providers Care Paid Search Specialist Name Role Phone Criss Blanco MD Unavailable Lashay Downs RN Unavailable Unavailab Duke Goodwin RN Unavailable UnavailNgozi Husain MD Unavailable [phone] Jose Roberto Marx MD Unavailable [phone] Grey Tomas MD Primary Care Provider [phone] Reason for Referral * MRI/CAT/PET Scan (Routine) - Closed Specialty Diagnoses / Procedures Referred By Alcira forrest Referred To Contact Radiology Diagnoses SDH (subdural hematoma) (HCC) Procedures CT Head WO Contrast Baldo Bailey PA [address] [facility] [address] [place] [address] Phone: tel: fax: [place] [address] [place] [address] Referral ID Status Reason Start Date Expiration Date Visits Re quested Visits Authorized [id number] Closed 07/02/2022 08/01/2023 1 1 S DISASSEMBLER Reason for Visit * MRI/CAT/PET Scan (Routine) - Closed Specialty Diagnoses / Procedures Referred By Contac t Referred To Contact Radiology Diagnoses SDH (subdural hematoma) (HCC) Procedures CT Head WO Contrast Baldo Bailey PA [address] [place] [address] Phone: tel: fax: [facility] [place] [phone] Referral ID Status Reason Start Date Expiration Date Visits Re quested Visits Authorized [id number] Closed 07/02/2022 08/01/2023 1 1 Encounter Details Date Type Department Care Team (Latest Contact Info) Description 08/08/2022 12:27 PM AUTOS DISASSEMBLER - 08/08/2022 11:59 PM AUTOS DISASSEMBLER Hospital Encounter [facility] Imaging [address] [address] SDH (subdural hematoma) Discharge Disposition: Discharge to [...] on file Legal Sex Male 12:56 AM AUTOS DISASSEMBLER Gender Identity Not on file Sexual Orientation Not on file 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 on file Not on natalie e documented as of this encounter Medications at Time of Discharge finasteride (PROSCAR) 5 mg tabletIndications :benign prostatic hyperplasia with lower urinary tract sx Take 1 tablet (5 mg total) by mouth bi tri operator before breakfast multivitamin capsuleIndication s:Vitamin Deficiency [...] mg tablet Take 10 mg by mouth bi tri operator before breakfast 3 famotidine (PEPCID) 40 mg tablet Take 1 tablet (40 mg total) by mouth nightly 03/28/2020 3 fluticasone propionate (FLONASE) 50 mcg/actuation nasal spray Administer 1 spray into each nostril bi tri operator before breakfast 04/12/2022 3 folic acid (FOLVITE) 1 mg tablet Take 1 tablet (1 mg total) by mouth bi tri operator before breakfast 3 levETIRAcetam (KEPPRA) 500 mg [...] 2 capsules (40 mg total) by mouth bi tri operator before breakfast 3 oxyCODONE (ROXICODONE) 5 [...] stairs Contact your local community or [facility] [place] for information on exercise, fall prevention programs, or options for improving home safety. documented as of this encounter Procedures Procedure Name Priority Date/Time Associated Diagnosis Comments CT HEAD WO CONTRAST Schedule Routine, Read Routine (OP Routine) 08/08/2022 12:34 PM AUTOS DISASSEMBLER SDH (subdural hematoma) documented in this encounter Results * CT Head WO Contrast (08/08/2022 12:34 PM AUTOS DISASSEMBLER) Anatomical Region Laterality Modality Head and Neck N/A Computed Tomogra phy 08/08/2022 1:40 PM AUTOS DISASSEMBLER Impressions 08/08/2022 1:40 PM AUTOS DISASSEMBLER Slightly mixed density subdural hematoma along the left cerebral convexity which is similar or slightly decreased in thickness compared to prior study. ??No midline shift. Electronically signed by: Waqas Ashraf MD, PHD Narrative 08/08/2022 1:40 PM AUTOS DISASSEMBLER EXAMINATION: Noncontrast head CT HISTORY: Subdural hematoma [...] hemorrhage documented in this encounter Care Teams Paid Search Specialist Relationship Specialty Start Date End Date Grey Tomas MD PCP - General Family Practice 07/27/22 [place] [address] [facility] [address] [place] [address] Rheumatology 02/21/17 Lashay Downs, RN Registered Nurse Pain Management 06/17/17 Duke Do, RN Registered Nurse 09/09/17 Ngozi Petty MD Radiation Oncologist Radiation Oncology 02/05/19 Jose Roberto Marx MD Referring Physician Otolaryngology 02/05/19 documented as of this encounter
--- OUTSIDE RECORDS SUMMARY | 2024-06-14 23:25 | XMS_ITS | Encounter Summary ---
Author Organization [facility] Address [address] [place] [address] Phone Care Team Providers Care Continuing Education Specialist Name Role Phone Criss Blanco MD Unavailable Lashay Downs RN Unavailable Unavailab Duke Goodwin RN Unavailable UnavailNgozi Husain MD Unavailable [phone] Jose Roberto Marx MD Unavailable [phone] Grey Tomas MD Primary Care Provider [phone] Reason for Visit * Reason Comments voice follow up * Consultation (Routine) - Closed Specialty Diagnoses / Procedures Referred By Contac t Referred To Contact Otolaryngology Diagnoses 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 (All Locations) Referral ID Status Reason Start Date Expiration Date V isits Requested Visits Authorized [id number] Closed Specialty Services Required 03/20/2022 06/02/2023 12 12 Encounter Details Date Type Department Care Team (Late st Contact Info) Description 08/08/2022 2:00 PM IRONING MACHINE OPERATOR Office Visit [facility] ENT [address] [facility] [address] [place] [address] Nakita Herrera MD [address] [place] [address] Carcinoma in situ of larynx (Primary Dx) [...] on file Legal Sex Male 12:56 AM IRONING MACHINE OPERATOR Gender Identity Not on file [...] this encounter. DISPOSITION:6 weeks Dariana Herrera MD Mothers Helper [facility] Division of Laryngology Department of Otolaryngology--Head & Neck Surgery ING MACHINE OPERATOR documented in this encounter Plan [...] on stairs Contact your local community or the [facility] for information on exercise, fall prevention programs, or options for improving home safety. documented as of this encounter Visit Diagnoses Diagnosis Carcinoma in situ of larynx- Primary documented in this encounter Care Teams Continuing Education Specialist Relationship Specialty Start Date End Date Grey Tomas MD PCP - General Family Practice 07/27/22 [place] [address] [facility] [address] [place] [address] Rheumatology 02/21/17 Lashay Downs, GAY Registered Nurse Pain Management 06/17/17 Duke Do, GAY Registered Nurse 09/09/17 Ngozi ePtty MD Radiation Oncologist Radiation Oncology 02/05/19 Jose Roberto Marx MD Referring Physician Otolaryngology 02/05/19 documented as of this encounter
--- OUTSIDE RECORDS SUMMARY | 2024-06-14 23:25 | XMS_ITS | Encounter Summary ---
Author Organization [facility] Address [address] [place] [address] Phone Care Team Providers Care Senior Engineering Team Leader Name Role Phone Criss Blanco MD Unavailable Lashay Downs RN Unavailable Unavailab Duke Goodwin RN Unavailable UnavailNgozi Husain MD Unavailable [phone] Jose Roberto Marx MD Unavailable [phone] Grey Tomas MD Primary Care Provider [phone] Reason for Referral * MRI/CAT/PET Scan (Routine) - Closed Specialty Diagnoses / Procedures Referred By Contac t Referred To Contact Radiology Diagnoses SDH (subdural hematoma) (HCC) Procedures CT Head WO Contrast Baldo Bailey PA [address] [place] [address] Phone: tel: fax: [place] [address] [address] [place] [address] Referral ID Status Reason Start Date Expiration Date Visits Re quested Visits Authorized [id number] Closed 08/08/2022 09/07/2023 1 1 GY ADMINISTRATOR Encounter Details Date Type Department Care Team (Late st Contact Info) Description 08/08/2022 3:00 PM ENERGY ADMINISTRATOR Office Visit [facility] Neurosurgery [address] [facility] Medical Office [address] [place] [address] Baldo Bailey PA [address] [place] [address] SDH (subdural hematoma) (Primary Dx); Low back [...] on file Legal Sex Male 12:56 AM ENERGY ADMINISTRATOR Gender Identity Not on file Sexual Orientation Not on file 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 on file Not on natalie e documented as of this encounter Last Filed Vital Signs Vital Sign Reading Time Taken Comments Blood Pressure 115/83 08/08/2022 3:12 PM ENERGY ADMINISTRATOR Pulse 84 08/08/2022 3:12 PM ENERGY ADMINISTRATOR Temperature - - Respiratory Rate - - Oxygen Saturation - - Inhaled Oxygen Concentration - - Weight 95.3 kg (210 lb) 08/08/2022 3:12 PM ENERGY ADMINISTRATOR Height 185.4 cm (6' 1 ) 08/08/2022 3:12 PM ENERGY ADMINISTRATOR Body Mass Index 27.71 08/08/2022 3:12 PM ENERGY ADMINISTRATOR documented in this encounter Progress Notes * Baldo Bailey PA - 08/08/2022 3:00 PM CST RETURN VISIT Subjective HISTORY OF PRESENT ILLNESS 77-year-old male returns to clinic for hospital follow-up regarding a mechanical fall contributing to an onset of headache and blurry vision. The date of the fall was approximately 6 weeks prior to today's date as the patient was transferred outside hospital [facility]. He was found to have a chronic [...] mechanical fall that occurred on 07[facility]01[facility]2022[facility]. He does have a chronic history [...] mg tablet, Take 10 mg by mouth process engineering intern before breakfast, Disp: , Rfl: famotidine (PEPCID) 40 mg tablet, Take 40 mg by mouth nightly , Disp: , Rfl: finasteride (PROSCAR) 5 mg tablet, Take 5 mg by mouth process engineering intern before breakfast, Disp: , Rfl: fluticasone propionate (FLONASE) 50 mcg/actuation nasal spray, Administer 1 spray into each nostrilearly morning before breakfast (Patient not taking: Reported on 07/13/2022), Disp: , Rfl: folic acid (FOLVITE) 1 mg tablet, Take 1 mg by mouth process engineering intern before breakfast (Patient not taking: Reported on [...] mg capsule, Take 40 mg by mouth process engineering intern before breakfast, Disp: , Rfl: oxyCODONE (ROXICODONE) [...] evaluated in outside hospital before transferring to [facility] for neurosurgical treatment and follow-up. The patient [...] any concerns or questions. Baldo Bailey PA-C GY ADMINISTRATOR documented in this encounter Plan of [...] on stairs Contact your local community or [facility] for information on exercise, fall prevention [...] 02/01/2023 added in this encounter Care Teams Senior Engineering Team Leader Relationship Specialty Start Date End Date Grey Tomas MD PCP - General Family Practice 07/27/22 [place] [address] [facility] [address] [place] [address] Rheumatology 02/21/17 Lashay Downs, RN Registered Nurse Pain Management 06/17/17 Duke Do, RN Registered Nurse 09/09/17 Ngozi Petty MD Radiation Oncologist Radiation Oncology 02/05/19 Jose Roberto Marx MD Referring Physician Otolaryngology 02/05/19 documented as of this encounter
--- OUTSIDE RECORDS SUMMARY | 2024-06-14 23:25 | XMS_ITS | Encounter Summary ---
Author Organization [facility] Address [address] [facility] [address] [place] [address] Care Team Providers Care Tie In Machine Operator Name Role Phone Criss Blanco MD Unavailable Lashay Downs RN Unavailable Unavailab Duke Goodwin RN Unavailable UnavailNgozi Husain MD Unavailable [phone] Jose Roberto Marx MD Unavailable [phone] Grey Tomas MD Primary Care Provider [phone] Reason for Visit * Reason Comments Tendonitis Achilles tendon pain started yesterday. 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 * Achilles Tendinitis (General Information) (Swedish) documented in this encounter Ordered Prescriptions Prescription [...] on stairs Contact your local community or [facility] for information on exercise, fall prevention programs, or options for improving home safety. documented as of this encounter Visit Diagnoses Diagnosis Right Achilles tendinitis- Primary documented in this encounter Historical Medications * This list may reflect changes made after this encounter. omeprazole (PriLOSEC) 40 mg capsule Take 1 capsule (40 mg total) by mouth every morning 08/13/2022 added in this encounter Care Teams Tie In Machine Operator Relationship Specialty Start Date End Date Grey Tomas MD PCP - General Family Practice 07/27/22 [place] [address] [address] Rheumatology 02/21/17 Lashay Downs, RN Registered Nurse Pain Management 06/17/17 Duke Do, RN Registered Nurse 09/09/17 Ngozi Petty MD Radiation Oncologist Radiation Oncology 02/05/19 Jose Roberto Marx MD Referring Physician Otolaryngology 02/05/19 documented as of this encounter
--- OUTSIDE RECORDS SUMMARY | 2024-06-14 23:26 | XMS_ITS | Encounter Summary ---
Author Organization [facility] Healthcare Address [address] [place] [address] Care Team Providers Care Tack Picker Name Role Phone Criss Blanco MD Unavailable Lashay Downs RN Unavailable Unavailab Duke Goodwin RN Unavailable UnavailNgozi Husain MD Unavailable [phone] Jose Roberto Marx MD Unavailable [phone] Reason for Visit * Reason Comments Fall * Auth/Cert Specialty Diagnoses / Procedures Referred By Contac t Referred To Contact Diagnoses SDH (subdural hematoma) (HCC) SUBDURAL BLEED Procedures na Referral ID Status Reason Start Date Expiration Date Visits Re quested Visits Authorized [id number] 1 1 Encounter Details Date Type Department Care Team (Latest Contact Info) Description 07/01/2022 12:47 PM EMPLOYEE BENEFITS SPECIALIST - 07/03/2022 10:39 AM EMPLOYEE BENEFITS SPECIALIST Hospital Encounter [facility] [address] [place] [address] Kike Forrester MD [address] [place] [address] Terrance Blancas MD [address] [place] [address] Albina Carrillo MD [address] [place] [address] SDH (subdural hematoma) (Primary Dx); Diagnosis unknown; [...] on file Legal Sex Male 12:56 AM EMPLOYEE BENEFITS SPECIALIST Gender Identity Not on file Sexual Orientation Not on file 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 on file Not on natalie e documented as of this encounter Last Filed Vital Signs Vital Sign Reading Time Taken Comments Blood Pressure 123/79 07/03/2022 8:10 AM EMPLOYEE BENEFITS SPECIALIST Pulse 61 07/03/2022 8:10 AM EMPLOYEE BENEFITS SPECIALIST Temperature 36.9 ??C (98.4 ??F) 07/03/2022 8:10 AM CS T Respiratory Rate 16 07/03/2022 8:10 AM EMPLOYEE BENEFITS SPECIALIST Oxygen Saturation 100% 07/03/2022 8:10 AM EMPLOYEE BENEFITS SPECIALIST Inhaled Oxygen Concentration - - Weight 97.5 kg (215 lb) 07/01/2022 11:15 PM EMPLOYEE BENEFITS SPECIALIST Height 185.4 cm (6' 1 ) 07/01/2022 11:15 PM EMPLOYEE BENEFITS SPECIALIST Body Mass Index 28.37 07/01/2022 11:15 PM EMPLOYEE BENEFITS SPECIALIST documented in this encounter Discharge Summaries * Luli Michel NP - 07/03/2022 8:59 AM CST [facility] Geriatric Trauma Surgery Inpatient Discharge Summary This [...] shift. The patient was subsequently transferred to [facility] for neurosurgical evaluation and management. The patient [...] CT prior to the appointment. Appointment scheduling [phone], after-hours emergency [phone] or #chronic rhinitis - flonase spray daily [...] - Please contact the Neurosurgery clinic at [phone] for questions, concerns, or appointments. - Please contact the Trauma Department if any problems develop, please call the Trauma office [phone]. Please be aware all medications including narcotic [...] Relationship: PCP - General SIF [address] [facility] [address] Next Steps: Follow up Instructions: Follow up with your primary care physician in 2 to 4 weeks for medication review and hospital follow-up. Questions: To provider: FAWN ROMEO Instructions for follow-up (appointment date and time): Follow up with your primary care physician in 2 to 4 weeks for medication review and hospital follow-up. [facility] Neurosurgery Specialty: Neurosurgery [facility] 6th Floor [address] [facility] [address] Next Steps: Follow up Instructions: Follow up with Neurosurgery in 4 weeks with a repeat head CT prior to your appointment. Please call [phone] to confirm your appointment. Questions: Instructions for follow-up (appointment date and time): Follow up with Neurosurgery in 4 weeks witha repeat head CT prior to your appointment. Please call [phone] to confirm your appointment. External Order Next [...] Center 07/13/2022 11:15 AM Uriah Calix NP [facility] Specialty 08/08/2022 1:00 PM [id number] [id number] 08/08/2022 2:00 PM Nakita Herrera MD OY CLN L20 OY 08/08/2022 3:00 PM Baldo Bailey PA SPINE [id number] NS I spent 30 minutes completing this hospital discharge. Zelda Wilkinson NP 07/03/22 CC: Fawn Romeo PA Cosigned by Jessica Raymond MD at 07/04/2022 8:58 AM EMPLOYEE BENEFITS SPECIALIST OYEE BENEFITS SPECIALIST OYEE BENEFITS SPECIALIST Associated attestation - Jessica Raymond MD - 07/04/2022 8:58 AM EMPLOYEE BENEFITS SPECIALIST I have seen and examined the patient on the day of discharge. I agree with the findings and plan ofcare as discussed with the EMBEDDED HARDWARE ENGINEER/PA. Jessica Raymond MD Acute and Critical Care Surgery [facility] documented in this encounter Discharge Instructions * Attachments The following attachments cannot be sent through Care Everywhere. * Subdural Hematoma (Discharge Care) ([employer]) documented in this encounter Medications at Time of Discharge finasteride (PROSCAR) 5 mg tabletIndications :benign prostatic hyperplasia with lower urinary tract sx Take 1 tablet (5 mg total) by mouth mortgage loan originator before breakfast multivitamin capsuleIndication s:Vitamin Deficiency Prevention [...] mg tablet Take 10 mg by mouth mortgage loan originator before breakfast 3 famotidine (PEPCID) 40 mg tablet Take 1 tablet (40 mg total) by mouth nightly 03/28/2020 3 fluticasone propionate (FLONASE) 50 mcg/actuation nasal spray Administer 1 spray into each nostril mortgage loan originator before breakfast 04/12/2022 3 folic acid (FOLVITE) 1 mg tablet Take 1 tablet (1 mg total) by mouth mortgage loan originator before breakfast 3 levETIRAcetam (KEPPRA) 500 mg [...] 2 capsules (40 mg total) by mouth mortgage loan originator before breakfast 3 oxyCODONE (ROXICODONE) 5 mg [...] No further CM needs at this time. OYEE BENEFITS SPECIALIST * Leona Cuevas MD - 07/02/2022 9:53 [...] please page the Neurosurgery Call pager at [phone] and ask for the resident taking care [...] to confirm their appointment date and time: [facility], . Note created by Leona Cuevas MD on 07/02/2022 at 9:53 PM. Cosigned by Reece Martínez MD at 07/04/2022 10:27 PM EMPLOYEE BENEFITS SPECIALIST OYEE BENEFITS SPECIALIST OYEE BENEFITS SPECIALIST * Albina Griffin - 07/02/2022 11:00 AM [...] for Prior Function Prior Function Level of Mcclain: Independent with ADLs, Independent with ambulation, Independent [...] Evaluation: 0-25 Impaired Trails A & B ([place] Making Test) Patient completed Trails A in [...] Aggie Paul OT at 07/02/2022 2:08 PM EMPLOYEE BENEFITS SPECIALIST OYEE BENEFITS SPECIALIST OYEE BENEFITS SPECIALIST * Edilia Gan, PT - 07/02/2022 9:39 [...] indep w/o ad Prior Function Level of Mcclain Independent with ADLs;Independent functional transfers;Independent with ambulation;Independent [...] in room with call light within reach. OYEE BENEFITS SPECIALIST * Radha Katz RN - 07/02/2022 9:01 AM CST CM Initial Assessment Interview Note Information Obtained From: Patient (07/02/22899) Admission Source: transfer from OSH Impression: 77 year old male admitted for fall Plan Includes: DC home with spouse when medically cleared for discharge Primary Source of Transportation: Does the patient need discharge transport arranged?: No (family) (07/02/22899) Health Insurance Coverage: [facility] medicare Prescription Coverage: yes Pharmacy: [id number] - [place], [place] - [address] [facility] [address] Primary Care Provider: Fawn Romeo PA Prior to Admission: Primary Caregiver: Self Who does the patient or legal guardian want to receive education instruction and discharge plans for after care assistance?: Decline Support System: Spouse/Significant Other, Children Support system contact info (name, phone, availablity): Ara Rubi (Daughter) [phone] Home Care Services: Yes 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 2. Return patient to optimal level of self-care post discharge. 3. Sex Crimes Detective will follow for Discharge Planning - interventions [...] with the aftercare plan. Radha Katz RN OYEE BENEFITS SPECIALIST * Radha Rose NP - 07/02/2022 5:59 AM CST [facility] Ger[facility] Trauma Surgery Daily Progress Note Admit: [...] shift. The patient was subsequently transferred to [facility] for neurosurgical evaluation and management. The patient [...] (premix) 500 mg, 500 mg, intravenous, Q12H [facility]molade [facility]., MD, Stopped at 07/01/222103 [...] Adult Diet Regular Diet effective now Question: ([facility]) Diet type Answer: Regular 07/01/222138 Activity: As [...] only and have not been reviewed by [facility] Radiology. There will be no report generated by a [facility] Radiologist. XR Outside Reference Result Date: 07/01/2022 These images are for Reference purposes only and have not been reviewed by [facility] Radiology. There will be no report generated by a [facility] Radiologist. XR Pelvis 1 or 2 Views [...] provided images may or may not represent[place] source data set and thus may contain [...] provided images may ormay not represent the [place] source data set and thus may contain [...] Jessica Raymond MD at 07/02/2022 4:32 PM EMPLOYEE BENEFITS SPECIALIST OYEE BENEFITS SPECIALIST OYEE BENEFITS SPECIALIST Associated attestation - Jessica Raymond MD - 07/02/2022 4:32 PM EMPLOYEE BENEFITS SPECIALIST I have seen and examined the patient on 07/02/22. I agree with the findings and plan of care as discussed with the EMBEDDED HARDWARE ENGINEER/PA. Jessica Raymond MD [place], Acute and Critical Care Surgery [facility] Geriatric Trauma EMBEDDED HARDWARE ENGINEER documented in this encounter Consult Notes * Devan Nickerson MD - 07/01/2022 1:46 PM CST [facility] Trauma Surgery ED Consult Note GTS Date [...] evaluation following injury. Transported: from Outside hospital: [facility] HPI: 77 yo M h/o GERD, BPH, [...] Cancer of vocal cord (CMS/HCC) ([facility]) Depression Gastric reflux Gastroesophageal reflux [...] OTHER MEDICAL hemorroids; Comments: [facility] [place] HX OTHER MEDICAL bladder infection HX [...] only and have not been reviewed by [facility] Radiology. There will be no report generated by a [facility] Radiologist. XR Outside Reference Result Date: 07/01/2022 These images are for Reference purposes only and have not been reviewed by [facility] Radiology. There will be no report generated by a [facility] Radiologist. Neuro CT MR Outside Consult Result [...] provided images may ormay not represent the [place] source data set and thus may contain changes that may lower the accuracy of this second-opinion interpretation. Dictated by: Tree Gunn MD General Surgery PGY-3 July 01, 2022 1:46 PM Cosigned by Terrance Blancas MD at 07/01/2022 11:58 PM EMPLOYEE BENEFITS SPECIALIST OYEE BENEFITS SPECIALIST OYEE BENEFITS SPECIALIST Associated attestation - Terrance Blancas MD - 07/01/2022 11:58 PM EMPLOYEE BENEFITS SPECIALIST I have seen and examined the patient on 07/01/22. I agree with the findings and plan of care as documented in the resident's/fellow's note.. * Oneida Read MD PhD - 07/01/2022 1:43 PM CSTAssociated Order(s): IP CONSULT TO NEUROSURGERY Neurosurgery Consultation Patient: Samuel Sanchez CSN: [id number] : 1945 Admission date: 07/01/2022 Length of [...] shift. The patient was subsequently transferred to [facility] for neurosurgical evaluation and management. The patient [...] ORAL) Social history: The patient lives in [facility]. His daughter Chata can be reached at [phone]. 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 He previously smoked 2 packs per day [...] discussed with the chief resident and attending computational chemist. The patient was evaluated within 30 minutes of consultation Oneida Read MD PhD Cosigned by Reece Martínez MD at 07/02/2022 1:44 PM EMPLOYEE BENEFITS SPECIALIST OYEE BENEFITS SPECIALIST OYEE BENEFITS SPECIALIST OYEE BENEFITS SPECIALIST OYEE BENEFITS SPECIALIST Associated attestation - Reece Martínez MD - 07/02/2022 1:44 PM EMPLOYEE BENEFITS SPECIALIST I have seen and examined the patient [...] is longer than anticipated. 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 Dyspepsia 07/01/2018 DDD (degenerative disc disease), lumbar 09/10/2017 snf use of drug 11/21/2016 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 Calculus of kidney 07/23/2011 Seropositive rheumatoid arthritis of multiple sites ([facility]) ([facility]) 07/03/2011 Shortness of breath 12/26/2010 Headache 12/22/2009 Malignant neoplasm of prostate ([facility]) ([facility]) 1998 Past Medical History: Diagnosis Date Allergic rhinitis Arthritis arthritis Calculus of kidney Nephrolithiasis Cancer of vocal cord ([facility]) ([facility]) Depression Gastric reflux Gastroesophageal reflux [...] OTHER MEDICAL hemorroids; Comments: [facility] [place] HX OTHER MEDICAL bladder infection HX OTHER MEDICAL kidney stone Low back pain Migraine Rheumatoid arthritis (HCC) Past Surgical History: Procedure Laterality Date BICEPS TENODESIS Left COLONOSCOPY 03/14/2020 CYSTOSCOPY 2019 EAR SURGERY Left repair perforated eardrum LARYNGOSCOPY Right 01/09/2019 Direct laryngoscopy with biopsy LARYNGOSCOPY Right 02/16/2019 Suspension microlaryngoscopy with KTP laser photoablation Right vocal fold lesion LITHOTRIPSY 5 or 6 times - [id number] ORCHIECTOMY Right OTHER SURGICAL HISTORY 04/18/2020 Suspension [...] (Reviewed) By: Pau Butler MD Time: 07/01 140 Value: WBC: 8.5 Comment: (Reviewed) By: Pau Butler MD Time: 07/01 5362 Comment: Attending sign out: 77 M, mechanical fall, L SDH, no shift, transfer from OSH for NSGY, GTS to see, likely admit to GTS By: Monica Goetz MD Time: 07/01 1807 Comment: [facility] By: Amador Nam MD Time: 07/01 1826 Value: CT Head WO Contrast Comment: IMPRESSION: Stable left cerebral convexity subdural hematoma without significant midline shift. By: Pau Butler MD Time: 07/01 1838 Comment: Teach Sign Out: 77[facility] + he[facility], no LOC, 7mm L SDH. Repeat scan stable. Neuro intact. By: Anabelle Llamas MD Time: 07/01 1956 Comment: Per NSGY, will switch to q4 neurochecks and admit to floor By: Aixa Duvall MD SDH (subdural hematoma) Diagnosis unknown Frail elderly Pau Butler MD Resident 07/02/22 0605 Cosigned by Kike Forrester MD at 07/04/2022 12:25 PM EMPLOYEE BENEFITS SPECIALIST OYEE BENEFITS SPECIALIST OYEE BENEFITS SPECIALIST Associated attestation - Kike Forrester MD - 07/04/2022 12:25 PM EMPLOYEE BENEFITS SPECIALIST I evaluated the patient on 07/01/2022 and agree with the history, exam, and plan as documented unless otherwise noted. * Denise Manriquez RN - 07/01/2022 12:50 PM CST Pt to ED via [facility] from [facility] after experiencing a fall this morning. 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 Pt denies LOC, states he experienced some blurry vision after the fall. Pt presented to OSH and was found to have SDH. Pt transferred to [facility] for higher level of care. Accepted as level 3 trauma. Pt Aox4, appears NAD, VSS. OYEE BENEFITS SPECIALIST * Denise Manriquez RN - 07/01/2022 12:47 PM CST Bed: [facility] Expected date: 07/01/22 Expected time: 11:32 AM Means of arrival: Medical Flight Comments: Denise Manriquez RN 07/01/22 1247 OYEE BENEFITS SPECIALIST documented in this encounter Miscellaneous Notes * [...] will verbalize understanding of dischrage instructions Summary: OYEE BENEFITS SPECIALIST * Plan of Care - Igor Yeboah RN - 07/02/2022 9:27 PM CST Goals: Clinical Goals for the Shift: vitals and neuro checks q4, maintain skin integrity Summary: Problem: Safety: Goal: Will remain free from falls Outcome: Progressing Problem: Safety: Goal: Will remain free from falls Outcome: Progressing OYEE BENEFITS SPECIALIST * Plan of Care - Leana Garcia [...] of discharge needs will improve Outcome: Progressing OYEE BENEFITS SPECIALIST * Plan of Care - Radha Katz [...] and ensure patient has continuum of care. OYEE BENEFITS SPECIALIST OYEE BENEFITS SPECIALIST OYEE BENEFITS SPECIALIST * Plan of Care - Kylee Morton [...] and injury in home environment Outcome: Progressing OYEE BENEFITS SPECIALIST * ED Re-evaluation Note - Aixa Duvall [...] admitted. By: Kike Forrester MD Time: 07/01 3098 Value: Temp: 36.4 ??C (97.6 ??F) Comment: [...] Time: 07/01 1807 Comment: Signed out to [facility] By: Amador Nam MD Time: 07/01 1826 Value: CT Head WO Contrast Comment: IMPRESSION: Stable left cerebral convexity subdural hematoma without significant midline shift. By: Pau Butler MD Time: 07/01 1838 Comment: Teach Sign Out: 77y[facility], + heead strike, no LOC, 7mm L SDH. Repeat scan stable. Neuro intact. By: Anabelle Llamas MD Time: 07/01 1956 Comment: Per NSGY, will switch to q4 neurochecks and admit to floor By: Aixa Duvall MD Kim, Lisa Jisun, MD Resident 07/01/222308 OYEE BENEFITS SPECIALIST * ED Pre-Arrival Note - Francesca Clements RN - 07/01/2022 11:41 AM EMPLOYEE BENEFITS SPECIALIST Pre-Arrival Note Level 3 trauma transfer from [facility], pt fell today, has left frontal SDH, approx 7mm, no mass effect, report called to Dr Forrester, coming by air Francesca Clements RN OYEE BENEFITS SPECIALIST documented in this encounter Plan of [...] stairs Contact your local community or senior [place] for information on exercise, fall prevention programs, or options for improving home safety. documented as of this encounter Procedures Procedure Name Priority Date/Time Associated Diagnosis Comments EGFR Routine 07/03/2022 12:05 AM EMPLOYEE BENEFITS SPECIALIST DIFFERENTIAL AUTO Routine 07/03/2022 12: 05 AM EMPLOYEE BENEFITS SPECIALIST CBC WITH AUTO DIFFERENTIAL Routine 07/03/2022 12:05 AM EMPLOYEE BENEFITS SPECIALIST BASIC METABOLIC PANEL Routine 07/03/2022 12:05 AM EMPLOYEE BENEFITS SPECIALIST ECG 12-LEAD STAT 07/01/2022 11:27 [address]EE BENEFITS SPECIALIST [address] HEAD WO CONTRAST ED Urgent/IP Urgent 07/01/2022 4:45 PM EMPLOYEE BENEFITS SPECIALIST URINALYSIS AND REFLEX TO MICROSCOPIC AND CULTURE STAT 07/01/2022 2:05 PM EMPLOYEE BENEFITS SPECIALIST XR PELVIS 1 OR 2 VIEWS ED Urgent/IP Urgent 07/01/2022 2:01 PM EMPLOYEE BENEFITS SPECIALIST XR CHEST PA LATERAL 2 VIEWS ED Urgent/IP Urgent 07/01/2022 2:01 PM EMPLOYEE BENEFITS SPECIALIST B CHECK SAMPLE STAT 07/01/2022 2:00 PM EMPLOYEE BENEFITS SPECIALIST NEURO CT MR OUTSIDE CONSULT Routine 07/01/2022 1:41 PM EMPLOYEE BENEFITS SPECIALIST Diagnosis unknown COVID-19 CORONAVIRUS RNA Routine 07/01/2022 1:38 PM EMPLOYEE BENEFITS SPECIALIST EGFR STAT 07/01/2022 1:38 PM EMPLOYEE BENEFITS SPECIALIST DIFFERENTIAL AUTO STAT 07/01/2022 1:3 8 PM EMPLOYEE BENEFITS SPECIALIST CBC WITH AUTO DIFFERENTIAL STAT 07/01/2022 1:38 PM EMPLOYEE BENEFITS SPECIALIST APTT STAT 07/01/2022 1:38 PM EMPLOYEE BENEFITS SPECIALIST PROTIME-INR STAT 07/01/2022 1:38 PM EMPLOYEE BENEFITS SPECIALIST HC ANTIBODY SCREEN RBC STAT 07/01/2022 1:38 PM EMPLOYEE BENEFITS SPECIALIST COMPREHENSIVE METABOLIC PANEL STAT 07/01/2022 1:38 PM EMPLOYEE BENEFITS SPECIALIST NEURO CT MR OUTSIDE CONSULT Routine 07/01/2022 1:37 PM EMPLOYEE BENEFITS SPECIALIST Diagnosis unknown XR TRANSFER OF OUTSIDE FILMS Routine 07/01/2022 1:34 PM EMPLOYEE BENEFITS SPECIALIST Diagnosis unknown XR TRANSFER OF OUTSIDE FILMS ED 07/01/2022 1:00 PM EMPLOYEE BENEFITS SPECIALIST documented in this encounter Results * (ABNORMAL) eGFR (07/03/2022 12:05 AM EMPLOYEE BENEFITS SPECIALIST) [facility] eGFR 71(L) 90 - 130 mL/min/1. 73 m2 [facility] Comment: Interpretive Data Reference Interval Normal ?>/= [...] reviewed 2021. Blood 07/03/2022 12:0 5 AM EMPLOYEE BENEFITS SPECIALIST 07/03/2022 12:26 AM EMPLOYEE BENEFITS SPECIALIST us Terrance Blancas MD LAB BLOOD ORDERABLES Final Result [facility] [place] [address] * Differential, auto (07/03/2022 12:05 AM EMPLOYEE BENEFITS SPECIALIST) Neutrophil abs 4.0 1.7 - 6.5 K/cumm [facility] Imm gran abs 0.0 0.0 - 0.1 K/cumm [facility] Lymphocyte abs 1.1 0.8 - 3.3 K/cumm [facility] Monocyte abs 0.5 0.2 - 0.8 K/cumm [facility] Eosinophil abs 0.3 0.0 - 0.5 K/cumm [facility] Basophil abs 0.0 0.0 - 0.1 K/cumm [facility] Neutrophil pct 66.7 % [facility] Comment: Interpretive Data Percent cell count reference ranges are not reported, since discordance with absolute values may lead to misinterpretation of CBC data. Current Interpretive Data was last revised on 2017. Imm gran pct 0.3 % [facility] Comment: Interpretive Data Percent cell count reference ranges are not reported, since discordance with absolute values may lead to misinterpretation of CBC data. Current Interpretive Data was last revised on 2017. Lymphocyte pct 18.9 % [facility] Comment: Interpretive Data Percent cell count reference ranges are not reported, since discordance with absolute values may lead to misinterpretation of CBC data. Current Interpretive Data was last revised on 2017. Monocyte pct 7.9 % [facility] Comment: Interpretive Data Percent cell count reference ranges are not reported, since discordance with absolute values may lead to misinterpretation of CBC data. Current Interpretive Data was last revised on 2017. Eosinophil pct 5.7 % [facility] Comment: Interpretive Data Percent cell count reference ranges are not reported, since discordance with absolute values may lead to misinterpretation of CBC data. Current Interpretive Data was last revised on 2017. Basophil pct 0.5 % [facility] Comment: Interpretive Data Percent cell count reference ranges are not reported, since discordance with absolute values may lead to misinterpretation of CBC data. Current Interpretive Data was last revised on 2017. Blood 07/03/2022 12:0 5 AM EMPLOYEE BENEFITS SPECIALIST 07/03/2022 12:32 AM EMPLOYEE BENEFITS SPECIALIST us Terrance Blancas MD LAB BLOOD ORDERABLES Final Result [facility] [place] [address] * (ABNORMAL) CBC with auto differential (07/03/2022 12:05 AM EMPLOYEE BENEFITS SPECIALIST) WBC 5.9 3.8 - 9.9 K/cumm [facility] Hgb 14.1 13.0 - 17.5 g/dL [facility] Hct 41.3 38.9 - 50.3 % [facility] Plt 127(L) 150 - 400 K/cumm [facility] MPV 10.9 9.1 - 12.3 fL [facility] RBC 4.47 4.30 - 5.80 M/cumm [facility] MCV 92.4 81.3 - 96.4 fL [facility] MCH 31.5 27.1 - 33.3 pg [facility] MCHC 34.1 32.3 - 35.7 g/dL [facility] RDW CV 13.4 11.1 - 14.9 % [facility] RDW SD 45.2 35.7 - 48.1 fL [facility] NRBC abs 0.00 0.00 - 0.01 K/cumm [facility] Blood 07/03/2022 12:0 5 AM EMPLOYEE BENEFITS SPECIALIST 07/03/2022 12:32 AM EMPLOYEE BENEFITS SPECIALIST Terrance Blancas MD LAB BLOOD ORDERABLES Final Result Performing Organization Address City/[facility]/ZIP Co de Phone Number [facility] [place] [address] * Basic metabolic panel (07/03/2022 12:05 AM EMPLOYEE BENEFITS SPECIALIST) Pathologist [facility] Sodium 141 135 - 145 mmol/L [facility] Potassium, pl 3.8 3.3 - 4.9 mmol/L [facility] Chloride 107 97 - 110 mmol/L [facility] CO2 27 22 - 32 mmol/L [facility] Anion gap 7 2 - 15 mmol/L [facility] BUN 25 8 - 25 mg/dL [facility] Creatinine 1.07 0.80 - 1.30 mg/dL [facility] Glucose 102 70 - 199 mg/dL [facility] Comment: Interpretive Data Fasting glucose >/= 126 [...] 2022. Calcium 9.1 8.5 - 10.3 mg/dL [facility] Blood 07/03/2022 12:0 5 AM EMPLOYEE BENEFITS SPECIALIST 07/03/2022 12:26 AM EMPLOYEE BENEFITS SPECIALIST Terrance Blancas MD LAB BLOOD ORDERABLES Final Result Performing Organization Address City/[facility]/ZIP Co de Phone Number [facility] [place] [address] * ECG 12 lead (07/01/2022 11:27 PM EMPLOYEE BENEFITS SPECIALIST) Ventricular Rate EKG/Min 65 BPM [facility] Atrial Rate 65 BPM [facility] MT-Interval (MSEC) 178 ms [facility] QRS-Interval (MSEC) 78 ms [facility] QT-Interval (MSEC) 366 ms [facility] QTc 380 ms [facility] P [place] 59 degrees [facility] R [place] -24 degrees [facility] T [place] 20 degrees [facility] Diagnosis Normal sinus rhythm Nonspecific T wave abnormality Abnormal ECG No previous ECGs available Confirmed by ADITHYA RINALDI M.D ([id number]) on 07/03/2022 4:06:29 PM [facility] 07/01/2022 11:2 7 PM EMPLOYEE BENEFITS SPECIALIST 07/03/2022 4:06 PM EMPLOYEE BENEFITS SPECIALIST us Terrance Blancas MD ECG ORDERABLES Final Resul t [facility] * CT Head WO Contrast (07/01/2022 4:45 PM EMPLOYEE BENEFITS SPECIALIST) Anatomical Region Laterality Modality Head and Neck N/A Computed Tomogra phy 07/01/2022 4:53 PM EMPLOYEE BENEFITS SPECIALIST Impressions 07/01/2022 4:57 PM EMPLOYEE BENEFITS SPECIALIST Stable left cerebral convexity subdural hematoma without significant midline shift. Dictated by: Dilip Garcia M.D. The radiology attending physician has personally reviewed this study, and had reviewed and/or edited this written report and agrees with it. Electronically signed by: Leana Becerra M.D. Narrative 07/01/2022 4:57 PM EMPLOYEE BENEFITS SPECIALIST EXAMINATION: CT head without contrast HISTORY: Subdural [...] microscopic and culture Urine (07/01/2022 2:05 PM EMPLOYEE BENEFITS SPECIALIST) Color, ur Straw Yellow [facility] Clarity, ur Clear Clear [facility] Specific gravity, ur 1.010 1.003 - 1.030 [facility] pH, urine 7.0 [facility] Protein, ur ql Negative Negative [facility] Glucose, ur ql Negative Negative [facility] Ketones, ur Negative Negative [facility] Bilirubin, ur Negative Negative [facility] Blood, ur Negative Negative [facility] Urobilinogen, ur <2.0 <2.0 mg/dL [facility] Nitrite, ur Negative Negative [facility] Leukocyte esterase, ur Negative Negative [facility] UA reflex comment Reflex conditions for microscopic UA and culture not met. [facility] Urine 07/01/2022 2:05 PM EMPLOYEE BENEFITS SPECIALIST 07/01/2022 2:16 PM EMPLOYEE BENEFITS SPECIALIST Narrative [facility] - 07/01/2022 2:22 PM EMPLOYEE BENEFITS SPECIALIST ?? Urine pH is affected by diet, medications, systemic acid-base disturbances, and renal tubular function. ??pH may affect urinary stone formation. ??For example, urine pH below 6.0 may help reduce the tendency for calcium phosphate stones and pH greater than 6.0 may reduce the tendency for uric acid stone formation. Source: [employer] bright box. Last revised 06-13-2017 us Pau Butler MD LAB MICROBIOLOGY - GEN ERAL ORDERABLES Final Result [facility] [place] [address] * XR Pelvis 1 or 2 Views (07/01/2022 2:01 PM EMPLOYEE BENEFITS SPECIALIST) Anatomical Region Laterality Modality Body, Pelvis N/A Computed Radiogr aphy 07/01/2022 2:11 PM EMPLOYEE BENEFITS SPECIALIST Impressions 07/01/2022 4:27 PM EMPLOYEE BENEFITS SPECIALIST 1. ??No acute radiographic findings in the chest or pelvis. Dictated by: Dionte Arce MD The radiology attending physician has personally reviewed this study, and had reviewed and/or edited this written report and agrees with it. Electronically signed by: Luis Flower M.D. Narrative 07/01/2022 4:27 PM EMPLOYEE BENEFITS SPECIALIST EXAMINATION: XR CHEST PA LATERAL 2 VIEWS, [...] Pa Lateral 2 Views (07/01/2022 2:01 PM EMPLOYEE BENEFITS SPECIALIST) Anatomical Region Laterality Modality Body, Chest N/A Computed Radiogr aphy 07/01/2022 2:11 PM EMPLOYEE BENEFITS SPECIALIST Impressions 07/01/2022 4:27 PM EMPLOYEE BENEFITS SPECIALIST 1. ??No acute radiographic findings in the chest or pelvis. Dictated by: Dionte Arce MD The radiology attending physician has personally reviewed this study, and had reviewed and/or edited this written report and agrees with it. Electronically signed by: Luis Flower M.D. Narrative 07/01/2022 4:27 PM EMPLOYEE BENEFITS SPECIALIST EXAMINATION: XR CHEST PA LATERAL 2 VIEWS, [...] Result * Check Sample (07/01/2022 2:00 PM EMPLOYEE BENEFITS SPECIALIST) ABO Rh A Positive [facility] OTHER 07/01/2022 2:00 PM EMPLOYEE BENEFITS SPECIALIST 07/01/2022 2:22 PM EMPLOYEE BENEFITS SPECIALIST us Kike Forrester MD LAB BLOOD ORDERABLES Fi nal Result [facility] [place] [address] * Neuro CT MR Outside Consult (07/01/2022 1:41 PM EMPLOYEE BENEFITS SPECIALIST) Anatomical Region Laterality Modality N/A Computed Tomogra phy 07/01/2022 1:49 PM EMPLOYEE BENEFITS SPECIALIST Impressions 07/01/2022 3:35 PM EMPLOYEE BENEFITS SPECIALIST No acute traumatic cervical spine injury. The findings, conclusions and recommendations within this report do not replace the initial findings, conclusions ??and recommendations made at the facility where the study was performed based upon the imaging and clinical condition at that time. ??Comparison with the prior report and clinical history is necessary. ??The provided images may or may not represent the [place] source data set and thus may contain changes that may lower the accuracy of this second-opinion interpretation. Dictated by: Patricio Marie M.D. The radiology attending physician has personally reviewed this study, and had reviewed and/or edited this written report and agrees with it. Electronically signed by: Leana Becerra M.D. Narrative 07/01/2022 3:35 PM EMPLOYEE BENEFITS SPECIALIST EXAMINATION: RADIOLOGY CONSULTATION ON OUTSIDE IMAGING STUDY STUDY INITIALLY PERFORMED: 07/01/2022 at [facility]. TYPE OF STUDY: Multiple CT images of [...] IMAGING STUDY STUDY INITIALLY PERFORMED: 07/01/2022 at [facility]. TYPE OF STUDY: Multiple CT images of the cervical spine without contrast are provided at the time of this interpretation. CONTRAST ROUTE: No contrast was administered. The protocol was adequate to address the clinical question. The outside final report was not available at the time of this second opinion interpretation. TYPE OF CONSULTATION: Consult on outside imaging study with images submitted through [employer] DATE OF CONSULTATION: 07/01/2022 1:45 PM HISTORY: [...] images may or may not represent the [place] source data set and thus may contain [...] lt * (ABNORMAL) eGFR (07/01/2022 1:38 PM EMPLOYEE BENEFITS SPECIALIST) [facility] eGFR 71(L) 90 - 130 mL/min/1. 73 m2 [facility] Comment: Interpretive Data Reference Interval Normal ?>/= [...] last reviewed 2021. Blood 07/01/2022 1:38 PM EMPLOYEE BENEFITS SPECIALIST 07/01/2022 1:50 PM EMPLOYEE BENEFITS SPECIALIST us Pau Butler MD LAB BLOOD ORDERABLES F inal Result [facility] [place] [address] * Differential, auto (07/01/2022 1:38 PM EMPLOYEE BENEFITS SPECIALIST) Neutrophil abs 6.3 1.7 - 6.5 K/cumm [facility] Imm gran abs 0.0 0.0 - 0.1 K/cumm [facility] Lymphocyte abs 1.3 0.8 - 3.3 K/cumm [facility] Monocyte abs 0.6 0.2 - 0.8 K/cumm [facility] Eosinophil abs 0.2 0.0 - 0.5 K/cumm [facility] Basophil abs 0.0 0.0 - 0.1 K/cumm [facility] Neutrophil pct 74.5 % [facility] Comment: Interpretive Data Percent cell count reference ranges are not reported, since discordance with absolute values may lead to misinterpretation of CBC data. Current Interpretive Data was last revised on 2017. Imm gran pct 0.5 % [facility] Comment: Interpretive Data Percent cell count reference ranges are not reported, since discordance with absolute values may lead to misinterpretation of CBC data. Current Interpretive Data was last revised on 2017. Lymphocyte pct 15.2 % [facility] Comment: Interpretive Data Percent cell count reference ranges are not reported, since discordance with absolute values may lead to misinterpretation of CBC data. Current Interpretive Data was last revised on 2017. Monocyte pct 6.8 % [facility] Comment: Interpretive Data Percent cell count reference ranges are not reported, since discordance with absolute values may lead to misinterpretation of CBC data. Current Interpretive Data was last revised on 2017. Eosinophil pct 2.8 % [facility] Comment: Interpretive Data Percent cell count reference ranges are not reported, since discordance with absolute values may lead to misinterpretation of CBC data. Current Interpretive Data was last revised on 2017. Basophil pct 0.2 % [facility] Comment: Interpretive Data Percent cell count reference ranges are not reported, since discordance with absolute values may lead to misinterpretation of CBC data. Current Interpretive Data was last revised on 2017. Blood 07/01/2022 1:38 PM EMPLOYEE BENEFITS SPECIALIST 07/01/2022 1:46 PM EMPLOYEE BENEFITS SPECIALIST Pau Butler MD LAB BLOOD ORDERABLES F inal Result [facility] Department [place] [address] * Type and screen (07/01/2022 1:38 PM EMPLOYEE BENEFITS SPECIALIST) Mohinder, indirect Negative [facility] ABO Rh A Positive [facility] Blood 07/01/2022 1:38 PM EMPLOYEE BENEFITS SPECIALIST 07/01/2022 1:52 PM EMPLOYEE BENEFITS SPECIALIST Narrative [facility] - 07/01/2022 2:39 PM EMPLOYEE BENEFITS SPECIALIST Has the patient had Daratumumab or Isatuximab in the past 6 months?->Unknown Pau Butler MD LAB BLOOD BANK TEST OR DERABLES Final Result [facility] [place] [address] * COVID-19 Coronavirus RNA Nasopharyngeal (07/01/2022 1:38 PM EMPLOYEE BENEFITS SPECIALIST) COVID-19 RNA Negative Negative [facility] Nasopharyngeal 07/01/2022 1: 38 PM EMPLOYEE BENEFITS SPECIALIST 07/01/2022 1:48 PM EMPLOYEE BENEFITS SPECIALIST Narrative [facility] - 07/01/2022 2:22 PM EMPLOYEE BENEFITS SPECIALIST Is the patient experiencing any symptoms consistent with COVID (eg. Fever, cough, shortness of breath)?->No What is the reason for testing?->Screening prior to urgent surgery, procedure, BMT, immunosuppressive therapy??(Rapid) ??Interpretive data: Synonyms for this test include: PCR and NAAT . ??This test is performed using the [employer] Xpert Xpress plus assay. This is a [...] . ??This test is performed using the [employer] Xpert Xpress plus assay. This is a [...] ERAL ORDERABLES Final Result Performing Organization Address [facility] de Phone Number [facility] [place] [employer] [place] [address] * aPTT (07/01/2022 1:38 PM EMPLOYEE BENEFITS SPECIALIST) aPTT 30 27 - 37 sec [facility] Comment: Interpretive Data Therapeutic heparin range: 60.0 - 94.0 seconds. Based on correlation with therapeutic heparin activity range of 0.3-0.7 Units/mL. Current interpretive data was last revised on 2020. Blood 07/01/2022 1:38 PM EMPLOYEE BENEFITS SPECIALIST 07/01/2022 1:47 PM EMPLOYEE BENEFITS SPECIALIST Pau Butler MD LAB BLOOD ORDERABLES F inal Result Performing Organization Address [facility] de Phone Number [facility] [place] [place] [address] * Protime-INR (07/01/2022 1:38 PM EMPLOYEE BENEFITS SPECIALIST) PT 11.6 9.2 - 13.5 sec [facility] INR 1.1 0.9 - 1.2 [facility] Comment: Interpretive data Oral anticoagulant therapeutic ranges: Venous thromboembolism prophylaxis or treatment: 2.0-3.0 CARDIOLOGY Standard range: 2.0-3.0 High-intensity range: 2.5-3.5 Refer to indication-specific guidelines for appropriate target ranges for prosthetic heart valve replacement. Current interpretive data was last revised on 2019. Blood 07/01/2022 1:38 PM EMPLOYEE BENEFITS SPECIALIST 07/01/2022 1:47 PM EMPLOYEE BENEFITS SPECIALIST Pau Butler MD LAB BLOOD ORDERABLES F inal Result Performing Organization Address [facility] de Phone Number [facility] [place] [employer] [place] [address] * Comprehensive metabolic panel (07/01/2022 1:38 PM EMPLOYEE BENEFITS SPECIALIST) Sodium 143 135 - 145 mmol/L [facility] Potassium, pl 3.8 3.3 - 4.9 mmol/L [facility] Chloride 104 97 - 110 mmol/L [facility] CO2 29 22 - 32 mmol/L [facility] Anion gap 10 2 - 15 mmol/L [facility] BUN 16 8 - 25 mg/dL [facility] Creatinine 1.06 0.80 - 1.30 mg/dL [facility] Glucose 83 70 - 199 mg/dL [facility] Comment: Interpretive Data Fasting glucose >/= 126 [...] 2022. Calcium 9.1 8.5 - 10.3 mg/dL [facility] Bilirubin, total 0.8 0.1 - 1.2 mg/dL [facility] Protein, pl 6.8 6.5 - 8.5 g/dL [facility] Albumin 4.1 3.5 - 5.0 g/dL [facility] Alk phos 70 40 - 130 Units/L [facility] ALT 22 7 - 55 Units/L [facility] AST 26 10 - 50 Units/L [facility] Blood 07/01/2022 1:3 8 PM EMPLOYEE BENEFITS SPECIALIST 07/01/2022 1:47 PM EMPLOYEE BENEFITS SPECIALIST us Pau Butler MD LAB BLOOD ORDERABLES F inal Result [facility] [place] [address] * (ABNORMAL) CBC with auto differential (07/01/2022 1:38 PM EMPLOYEE BENEFITS SPECIALIST) WBC 8.5 3.8 - 9.9 K/cumm [facility] Hgb 14.9 13.0 - 17.5 g/dL [facility] Hct 43.6 38.9 - 50.3 % [facility] Plt 143(L) 150 - 400 K/cumm [facility] MPV 11.4 9.1 - 12.3 fL [facility] RBC 4.73 4.30 - 5.80 M/cumm [facility] MCV 92.2 81.3 - 96.4 fL [facility] MCH 31.5 27.1 - 33.3 pg [facility] MCHC 34.2 32.3 - 35.7 g/dL [facility] RDW CV 13.4 11.1 - 14.9 % [facility] RDW SD 44.6 35.7 - 48.1 fL [facility] NRBC abs 0.00 0.00 - 0.01 K/cumm [facility] Blood 07/01/2022 1:38 PM EMPLOYEE BENEFITS SPECIALIST 07/01/2022 1:46 PM EMPLOYEE BENEFITS SPECIALIST us Pau Butler MD LAB BLOOD ORDERABLES F inal Result [facility] [place] [address] * Neuro CT MR Outside Consult (07/01/2022 1:37 PM EMPLOYEE BENEFITS SPECIALIST) Anatomical Region Laterality Modality N/A Computed Tomogra phy 07/01/2022 1:45 PM EMPLOYEE BENEFITS SPECIALIST Impressions 07/01/2022 3:35 PM EMPLOYEE BENEFITS SPECIALIST Acute subdural hemorrhage about the left cerebral convexity The findings, conclusions and recommendations within this report do not replace the initial findings, conclusions ??and recommendations made at the facility where the study was performed based upon the imaging and clinical condition at that time. ??Comparison with the prior report and clinical history is necessary. ??The provided images may or may not represent the [place] source data set and thus may contain changes that may lower the accuracy of this second-opinion interpretation. Dictated by: Patricio Marie M.D. The radiology attending physician has personally reviewed this study, and had reviewed and/or edited this written report and agrees with it. Electronically signed by: Leana Becerra M.D. Narrative 07/01/2022 3:35 PM EMPLOYEE BENEFITS SPECIALIST EXAMINATION: RADIOLOGY CONSULTATION ON OUTSIDE IMAGING STUDY STUDY INITIALLY PERFORMED: 07/01/2022 at [facility]. TYPE OF STUDY: Multiple CT images of [...] IMAGING STUDY STUDY INITIALLY PERFORMED: 07/01/2022 at [facility]. TYPE OF STUDY: Multiple CT images of [...] images may or may not represent the [place] source data set and thus may contain [...] * XR Outside Reference (07/01/2022 1:34 PM EMPLOYEE BENEFITS SPECIALIST) Impressions [facility] - 07/01/2022 1:34 PM EMPLOYEE BENEFITS SPECIALIST These images are for Reference purposes only and have not been reviewed by [facility] Radiology. ??There will be no report generated by a [facility] Radiologist. Narrative [facility] - 07/01/2022 1:34 PM EMPLOYEE BENEFITS SPECIALIST EXAMINATION: ??Images For Reference Purposes Only Amador Nam MD IMG XR PROCEDURES Final Resu lt [facility] * XR Outside Reference (07/01/2022 1:00 PM EMPLOYEE BENEFITS SPECIALIST) Impressions [facility] - 07/01/2022 1:00 PM EMPLOYEE BENEFITS SPECIALIST These images are for Reference purposes only and have not been reviewed by [facility]. ??There will be no report generated by a [facility] Radiologist. Narrative [facility] - 07/01/2022 1:00 PM EMPLOYEE BENEFITS SPECIALIST EXAMINATION: ??Images For Reference Purposes Only us [...] For 1 dose Given 07/01/2022 2:37 PM EMPLOYEE BENEFITS SPECIALIST 1,000 mg acetaminophen (TYLENOL) tablet 650 mg 650 mg, oral, Every 6 hours, First dose on 07/01/22 at 2215, Indications: PainIndications:Pain Given 07/03/2022 8:28 AM EMPLOYEE BENEFITS SPECIALIST 650 mg Given 07/02/2022 8:54 PM EMPLOYEE BENEFITS SPECIALIST 650 mg Given 07/01/2022 10:32 PM EMPLOYEE BENEFITS SPECIALIST 650 mg cetirizine (ZyrTEC) tablet 10 mg 10 mg, oral, Daily (early AM), First dose on Sat07/02/22 at 0600, Indications: Seasonal Allergic RhinitisIndications:Seasonal Allergic Rhinitis Given 07/03/2022 5:19 AM EMPLOYEE BENEFITS SPECIALIST 10 mg Given 07/02/2022 5:52 AM EMPLOYEE BENEFITS SPECIALIST 10 mg famotidine (PEPCID) tablet 40 mg 40 mg, oral, Nightly, First dose on 07/01/22 at 2215, Indications: Heartburn, Heartburn PreventionIndications:Heartburn,Heartburn Prevention Given 07/02/2022 8:53 PM EMPLOYEE BENEFITS SPECIALIST 40 mg fluticasone propionate (FLONASE) 50 mcg/actuation nasal spray 1 spray 1 spray, each nostril, Daily (early AM), First dose on Sat07/02/22 at 0600, Indications: Chronic Non-Allergic RhinitisIndications:Chronic Non-Allergic Rhinitis Given 07/03/2022 5:21 AM EMPLOYEE BENEFITS SPECIALIST 1 spray Given 07/02/2022 6:27 AM EMPLOYEE BENEFITS SPECIALIST 1 spray folic acid (FOLVITE) tablet 1 mg 1 mg, oral, Daily (early AM), First dose on Sat07/02/22 at 0600, Indications: RAIndications:RA Given 07/03/2022 5: 19 AM EMPLOYEE BENEFITS SPECIALIST 1 mg Given 07/02/2022 5:52 AM EMPLOYEE BENEFITS SPECIALIST 1 mg hydrOXYzine (ATARAX) tablet 25 mg 25 mg, oral, Every 4 hours PRN, itching, Starting on 07/01/22 at 2138 levETIRAcetam (KEPPRA) 500 mg/100 mL in sodium chloride (premix) 500 mg 500 mg, intravenous, Administer over 15 Minutes, Every 12 hours scheduled, First dose on Sat07/01/22 at 1352, For 7 days, Room temperature only New Bag 07/02/2022 7:50 AM EMPLOYEE BENEFITS SPECIALIST 500 mg New Bag 07/01/2022 8:55 PM EMPLOYEE BENEFITS SPECIALIST 500 mg New Bag 07/01/2022 2:37 PM EMPLOYEE BENEFITS SPECIALIST 500 mg levETIRAcetam (KEPPRA) tablet 500 mg 500 mg, oral, 2 times daily, First dose on Sat07/02/22 at 2100, For 11 doses, May mix with 120 mL of enteral nutrition formula or disperse crushed tablets (500 mg tablet strength studied) in 10 mL of water, shake for 5 minutes to dissolve, and administer immediately via enteral feeding tube Given 07/03/2022 8:29 AM EMPLOYEE BENEFITS SPECIALIST 500 mg Given 07/02/2022 8:54 PM EMPLOYEE BENEFITS SPECIALIST 500 mg montelukast (SINGULAIR) tablet 10 mg 10 mg, oral, Nightly, First dose on Sat07/01/22 at 2215, Indications: Maintenance Therapy for AsthmaIndications:Maintenance Therapy for Asthma Given 07/02/2022 8:54 PM EMPLOYEE BENEFITS SPECIALIST 10 mg Given 07/01/2022 10:32 PM EMPLOYEE BENEFITS SPECIALIST 10 mg multivitamin with folic acid 400 mcg tablet 1 tablet 1 tablet, oral, Daily, First dose on Sat07/02/22 at 0900, Indications: Vitamin Deficiency PreventionIndications:Vitamin Deficiency Prevention Given 07/03/2022 8:29 AM EMPLOYEE BENEFITS SPECIALIST 1 tablet Given 07/02/2022 7:50 AM EMPLOYEE BENEFITS SPECIALIST 1 tablet oxyCODONE (ROXICODONE) tablet 5 mg 5 mg, oral, Every 4 hours PRN, 1st line for pain, Starting on Sat07/01/22 at 2136, For 95 hours, Indications: PainIndications:Pain rOPINIRole (REQUIP) tablet 1 mg 1 mg, oral, Nightly, First dose (after last modification) on 07/01/22 at 1652, Indications: Restless Legs SyndromeIndications:Restless Legs Syndrome Given 07/02/2022 8:53 PM EMPLOYEE BENEFITS SPECIALIST 1 mg Given 07/01/2022 7:14 PM EMPLOYEE BENEFITS SPECIALIST 1 mg senna-docusate (PERICOLACE) 8.6-50 mg per tablet 1 tablet 1 tablet, oral, 2 times daily, First dose on 07/02/22 at 0900 Given 07/03/2022 8:29 AM EMPLOYEE BENEFITS SPECIALIST 1 tablet Given 07/02/2022 8:53 PM EMPLOYEE BENEFITS SPECIALIST 1 tablet Given 07/02/2022 7:50 AM EMPLOYEE BENEFITS SPECIALIST 1 tablet documented in this encounter Discontinued Medications Medication Sig Discontinue Reason Start Date End Da te acetaminophen (TYLENOL) 325 mg tabletIndications:Pain Take 2 tablets (650 mg total) by mouth every 6 (six) hours as needed for pain Reorder 07/03/2022 07/03/2022 documented as of this encounter Active and Recently Administered Medications Times are shown in EMPLOYEE BENEFITS SPECIALIST. Scheduled Medication Order 07/01/2022 07/02/2022 07/03/2022 acetaminophen [...] 07/01/2022 documented in this encounter Care Teams Tack Picker Relationship Specialty [place] [id number] [facility] [address] [place] [address] Rheumatology 02/21/17 Lashay Downs, RN Registered Nurse Pain Management 06/17/17 Duke Do, GAY Registered Nurse 09/09/17 Ngzoi Petty MD Radiation Oncologist Radiation Oncology 02/05/19 Jose Roberto Marx MD Referring Physician Otolaryngology 02/05/19 documented as of this encounter
--- OUTSIDE RECORDS SUMMARY | 2024-06-14 23:26 | XMS_ITS | Encounter Summary ---
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] Procedures AR LARYNGOSCOPY,DIRCT,OP SCOP,EXC TUMR MICROLARYNGOSCOPY WITH BIOPSY/EXCISION LESION LASER KTP Nakita Herrera MD [address] [place] [address] Phone: tel: fax: Referral ID Status Reason Start Date Expiration Date Visits Re quested Visits Authorized [id number] 04/25/2022 1 1 Encounter Details Date Type Department Care Team (Late st Contact Info) Description 04/30/2022 8:10 AM BILL PEDDLER - 04/30/2022 9:45 AM BILL PEDDLER Surgery [facility] Operating Room [address] S[address] [address] Nakita Herrera MD [address] [place] [address] SUSPENSION MICROLARYNGOSCOPY WITH EXCISION OF VOCAL FOLD LESION Surgery Details Date/Time Status Location OR Service Patient Class Case Class Case Type Trauma Case? 04/30/2022 8:10 AM Posted [facility] OPERATING ROOM OR Otolaryngology Outpatient Elective [...] on file Legal Sex Male 12:56 AM BILL PEDDLER Gender Identity Not on file Sexual Orientation Not on file 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 on file Not on natalie e documented as of this encounter Last Filed Vital Signs Vital Sign Reading Time Taken Comments Blood Pressure 139/82 04/30/2022 7:05 AM BILL PEDDLER Pulse 62 04/30/2022 8:25 AM BILL PEDDLER Temperature 36.7 ??C (98.1 ??F) 04/30/2022 8:25 AM CS T Respiratory Rate 14 04/30/2022 8:25 AM BILL PEDDLER Oxygen Saturation 96% 04/30/2022 8:25 AM BILL PEDDLER Inhaled Oxygen Concentration - - Weight 99.3 kg (219 lb) 04/30/2022 6:41 AM BILL PEDDLER Height 185.4 cm (6' 1 ) 04/30/2022 6:41 AM BILL PEDDLER Body Mass Index 28.89 04/30/2022 6:41 AM BILL PEDDLER documented in this encounter Discharge Instructions * Discharge Instructions* Lui Thompson MD - 04/30/2022 9:58 AM BILL PEDDLER ENT Post Operative Discharge Instructions Procedure: Direct [...] or contact the main office line at [phone]. Follow up: You should follow up in Nakita Eddy MD's clinic as scheduled below. [address] [address] OTHER FOLLOW UP: 1. PCP - for management of all chronic illnesses No future appointments. 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 Questions: If you have any concerns or questions, or develop worrisome symptoms such as worsening pain or swelling, bleeding, fever, or vomiting, call your doctor. PEDDLER PEDDLER PEDDLER documented in this encounter Medications at Time of Discharge finasteride (PROSCAR) 5 mg tabletIndications :benign prostatic hyperplasia with lower urinary tract sx Take 1 tablet (5 mg total) by mouth paleobotanist before breakfast multivitamin capsuleIndication s:Vitamin Deficiency Prevention [...] spray Administer 1 spray into each nostril paleobotanist before breakfast 04/12/2022 3 lansoprazole (PREVACID) 30 mg capsule Take 30 mg by mouth 12/19/2021 2 methotrexate 2.5 mg tablet Take 6 tablets (15 mg total) by mouth once a week saturday02/02/2020 3 montelukast (SINGULAIR) 10 mg tablet Take 10 mg by mouth nightly 04/12/2022 3 omeprazole (PriLOSEC) 20 mg capsule Take 2 capsules (40 mg total) by mouth paleobotanist before breakfast 3 rOPINIRole (REQUIP) 1 mg [...] Procedure(s): MICROLARYNGOSCOPY WITH BIOPSY/EXCISION LESION LASER KTP PEDDLER Source Note - Nakita Herrera MD - 04/25/2022 9:00 AM BILL PEDDLER PATIENT NAME: Pasquale Sanchez : 1945 DOS: [...] for his . 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) ([facility]) 1998 prostate Migraine Rheumatoid arthritis ([facility]) Past Surgeries: has a past surgical history that includes Biceps Tenodesis (Left, 1969'); Ear Surgery (Left, 1969's); Orchiectomy (Right, ); Vasectomy (); Rotator cuff repair (Right, ); Lithotripsy ( - [id number]); Laryngoscopy (Right, 01/09/2019); Laryngoscopy (Right, 02/16/2019); Shouldersurgery [...] in this encounter. DISPOSITION:OR Dariana Herrera MD Liquor Runner [facility] Division of Laryngology Department of Otolaryngology--Head & Neck Surgery PEDDLER documented in this encounter Miscellaneous Notes * [...] participated in the entirety of the procedure PEDDLER documented in this encounter Plan of Treatment [...] on stairs Contact your local community or [facility] for information on exercise, fall prevention programs, or options for improving home safety. documented as of this encounter Procedures Procedure Name Priority Date/Time Associated Diagnosis Comments SURGICAL PATHOLOGY Routine 04/30/2022 9: 29 AM BILL PEDDLER Lesion of vocal fold LASER KTP 04/30/2022 8:41 AM BILL PEDDLER Lesion of vocal fold Case Notes Microlaryngeal set, sataloff knife, dedo excalibur, OP available. KTP laser Special Needs Microlaryngeal set, sataloff knife, dedo excalibur, OP available. MICROLARYNGOSCOPY WITH BIOPSY/EXCISION LESION 04/30/2022 8:41 AM BILL PEDDLER Lesion of vocal fold Case Notes Microlaryngeal set, sataloff knife, dedo excalibur, OP available. KTP laser Special Needs Microlaryngeal set, sataloff knife, dedo excalibur, OP available. documented in this encounter Results * Surgical pathology (04/30/2022 9:29 AM BILL PEDDLER) Tissue (Vocal Cord, Biopsy) 04/30/2022 9:29 AM BILL PEDDLER Tissue (Vocal Cord, Biopsy) 04/30/2022 9:30 AM BILL PEDDLER Narrative PATHOLOGY [facility] - 05/01/2022 11:22 AM BILL PEDDLER EPIC results best viewed via link to PDF [facility] [place] [address] Note to Patients: This report may contain [...] : ??1945 (Age: 76) Address: ??[address], [place] ??[address] Hospital #: ??[id number] Taken:04/30/2022 Received:04/30/2022 Reported: 05/01/2022 Patient Type: [facility]WC EP SAME Client ?[facility] Service: Surgery Location: Physician(s): ??Tree Lopez PA Diagnosis: A. ??Larynx, right vocal cord, biopsy ? 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 ??Larynx, right posterior vocal cord, biopsy ? 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 Tejal Rodrigues M.D. Report Electronically Reviewed and Signed Out By ??Tejal Rodrigues M.D. 05/01/2022 11:22:26 Microscopic Description and Comment: Microscopic examination substantiates the above cited diagnosis. Microscopic slide review and interpretation for this case was performed at [facility], Department of Surgical Pathology, [address] [facility], [place] [id number], ??[facility], [place] ??[address] ?? CLIA # [id number]. Kimberly Jones M.D. History: The patient is [...] 0. cnew04/30/2022 10:47 PA(s): SONIA Gutiérrez, CT ([facility]) By this signature, I attest that the above diagnosis is based upon my personal examination of the slides(and/or other material). Addenda/Procedures The performance characteristics of some immunohistochemical stains, fluorescence in-situ hybridization tests and immunophenotyping by flow cytometry cited in this report (if any) were determined by the Surgical Pathology and Flow Cytometry Departments at [facility] as part of an ongoing quality control expert program and in compliance with federally mandated [...] Surgical Pathology and Flow Cytometry Departments of [facility]. ??It has not been cleared or approved by the [place]. [place]. Food and Drug Administration. IMAGES AND SCANNED DOCUMENTS, IF INCLUDED, ONLY VIEWABLE IN PDF VERSION OF REPORT Nakita Herrera MD LAB PATHOLOGY ORDERA BLES Final Result PATHOLOGY [facility] [phone] documented in this encounter Visit Diagnoses Diagnosis [...] to floor. New Bag 04/30/2022 9:35 AM BILL PEDDLER Rate/Dose Verify 04/30/2022 8:36 AM BILL PEDDLER 30 mL/h r New Bag 04/30/2022 7:21 AM BILL PEDDLER 30 mL/hr 30 mL/hr oxymetazoline (AFRIN) 0.05 % nasal spray As needed, Starting on Sat04/30/22 at 0923, Intra-Op Given 04/30/2022 9:23 AM BILL PEDDLER 30 mL Surgical Site sodium chloride 0.9% irrigation As needed, Starting on Sat04/30/22 at 0854, Intra-Op Given 04/30/2022 8:54 AM BILL PEDDLER 1,000 mL Surgical Site documented in this [...] 1 tablet (5 mg total) by mouth paleobotanist before breakfast rOPINIRole (REQUIP) 1 mg tablet Take 2 tablets (2 mg total) by mouth nightly 3 omeprazole (PriLOSEC) 20 mg capsule Take 2 capsules (40 mg total) by mouth paleobotanist before breakfast 3 added in this encounter Active and Recently Administered Medications Times are shown in BILL PEDDLER. Continuous Medication Order 04/28/2022 04/29/2022 04/30/2022 Lactated [...] Use as 1st line for Inpatients at [facility].?Use Use as second line for OC [...] 04/30/2022 documented in this encounter Care Teams Press Operator [employer] Relationship Specialty [place] [address] [facility] [address] [place] [address] Rheumatology 02/21/17 Lashay Downs, RN Registered Nurse Pain Management 06/17/17 Duke Do, RN Registered Nurse 09/09/17 Ngozi Petty MD Radiation Oncologist Radiation Oncology 02/05/19 Jose Roberto Marx MD Referring Physician Otolaryngology 02/05/19 documented as of this encounter
--- OUTSIDE RECORDS SUMMARY | 2024-06-14 23:26 | XMS_ITS | Encounter Summary ---
Author Organization 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] Procedures ME LARGSC EXC STEFANIA&/STRPG CORDS/EPIGL MCRSCP/TLSCP MICROLARYNGOSCOPY WITH BIOPSY/EXCISION LESION LASER KTP Nakita Herrera MD [address] [place] [address] Phone: tel: fax: Referral ID Status Reason Start Date Expiration Date Visits Re quested Visits Authorized [id number] 05/01/2022 1 1 Encounter Details Date Type Department Care Team (Late st Contact Info) Description 05/07/2022 8:55 AM CASHIER SELF SERVICE GASOLINE - 05/07/2022 10:40 AM CASHIER SELF SERVICE GASOLINE Surgery [facility] Operating Room [address] S[address] [address] Nakita Herrera MD [address] [place] [address] MICROLARYNGOSCOPY WITH BIOPSY/EXCISION LESION Surgery Details Date/Time Status Location OR Service Patient Class Case Class Case Type Trauma Case? 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 on file Not on natalie e documented as of this encounter Last Filed Vital Signs Vital Sign Reading Time Taken Comments Blood Pressure 127/68 05/07/2022 10:20 AM CASHIER SELF SERVICE GASOLINE Pulse 75 05/07/2022 10:20 AM CASHIER SELF SERVICE GASOLINE Temperature 36.2 ??C (97.2 ??F) 05/07/2022 10:[address] Respiratory Rate 17 05/07/2022 10:20 AM CASHIER SELF SERVICE GASOLINE Oxygen Saturation 92% 05/07/2022 10:20 AM CASHIER SELF SERVICE GASOLINE Inhaled Oxygen Concentration - - Weight 98 kg (216 lb) 05/07/2022 7:26 AM CASHIER SELF SERVICE GASOLINE Height 185.4 cm (6' 1 ) 05/07/2022 7:26 AM CASHIER SELF SERVICE GASOLINE Body Mass Index 28.5 05/07/2022 7:26 AM CASHIER SELF SERVICE GASOLINE documented in this encounter Discharge Instructions * Discharge Instructions* Margareth Flores RN - 05/07/2022 8:12 AM CASHIER SELF SERVICE GASOLINE ENT Post Operative Discharge Instructions Procedure: Direct [...] needed. - Stool Softener: Take stool softener ([id number] or prescription) while taking narcotic medication to [...] or contact the main office line at [phone]. Follow up: You should follow up in Nakita Eddy MD's clinic as scheduled below. [facility] - Medical Office Building [address] [place] [address] SUSIE Dang [address] [address] OTHER FOLLOW UP: 1. PCP - for management of all chronic illnesses Future Appointments Date Time Provider Department Center 2022 10:20 AM Nakita Herrera MD [facility] CLN [address] OY Phone numbers Appointment Scheduling: Urgent Concerns after hours or Weekends: Call and ask for the ENT resident waiter/waitress second class. During Regular Business Hours (8am-5pm Saturday through Saturday): [phone] Herrera's nurse Questions: [...] of narcotic pain medication include Percocet, Oxycontin, Sawyer, Hydrocodone, and Oxycodone. FAQs (frequently asked questions) [...] physical therapy, we are available to assist: [facility] STAR: [facility] [phone] [place] [phone] [facility] [phone] How are some things that you can [...] given by your doctor or other health child care group leader. IER SELF SERVICE GASOLINE IER SELF SERVICE GASOLINE IER SELF SERVICE GASOLINE documented in this encounter Medications at Time of Discharge finasteride (PROSCAR) 5 mg tabletIndications :benign prostatic hyperplasia with lower urinary tract sx Take 1 tablet (5 mg total) by mouth cream gatherer before breakfast multivitamin capsuleIndication s:Vitamin Deficiency Prevention Take 1 capsule by mouth every morning vit A/vit C/vit E/zinc/copper (PRESERVISION AREDS ORAL) Take 1 capsule by mouth 2 (two) times a day cetirizine (ZyrTEC) 10 mg tablet Take 10 mg by mouth cream gatherer before breakfast 3 famotidine (PEPCID) 40 mg tablet Take 1 tablet (40 mg total) by mouth nightly 03/28/2020 3 fluticasone propionate (FLONASE) 50 mcg/actuation nasal spray Administer 1 spray into each nostril cream gatherer before breakfast 04/12/2022 3 folic acid (FOLVITE) 1 mg tablet Take 1 tablet (1 mg total) by mouth cream gatherer before breakfast 3 methotrexate 2.5 mg tablet Take 6 tablets (15 mg total) by mouth once a week saturday02/02/2020 3 montelukast (SINGULAIR) 10 mg tablet Take 10 mg by mouth nightly 04/12/2022 3 omeprazole (PriLOSEC) 20 mg capsule Take 2 capsules (40 mg total) by mouth cream gatherer before breakfast 3 oxyCODONE (ROXICODONE) 5 mg [...] Physical Exam: General: NAD, alert, 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 [facility] Preoperative Evaluation Record Evaluation type/location: TPAP from [facility] Planned procedure site: [facility] OR Date: 05/02/22 NOTE: This note [...] Cardiovascular Pertinent negatives: hypertension ; CAD ; NC ; CABG ; valvular heart disease; atrial [...] mail. Patient verbalized understanding of [facility] plan. [facility] performed by Zelda Johnson NP on 05/02/22 at 9:34 AM. Patient Active Problem List Diagnosis ??? 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 Headache ??? 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 DDD (degenerative disc [...] OTHER MEDICAL hemorroids; Comments: Had done at [facility] in [place] ??? HX OTHER MEDICAL bladder infection ??? [...] LITHOTRIPSY 5 or 6 times s - [id number] ??? ORCHIECTOMY Right s ??? OTHER SURGICAL [...] last 720 hours. Marcelle index score: 100 IER SELF SERVICE GASOLINE documented in this encounter Miscellaneous Notes * [...] participated in the entirety of the procedure IER SELF SERVICE GASOLINE * Pre-Procedure Instructions - Zelda Johnson NP - 05/02/2022 9:10 AM CASHIER SELF SERVICE GASOLINE [facility] Preoperative Assessment and Planning CPAP Clinic Location: [facility] The night before your surgery: * [...] with COVID-19. You test positive for COVID-19. IER SELF SERVICE GASOLINE * Perioperative Nursing Note - Tejal Mariano RN - 05/01/2022 5:34 PM CST [facility] Preoperative [facility] Planning Perioperative Nursing Note Telephone Preoperative Evaluation ([facility]) - TELEPHONE ONLY, NO PHYSICAL EXAM [...] mg tablet Take 10 mg by mouth cream gatherer before breakfast famotidine (PEPCID) 40 mg tablet Take 40 mg by mouth nightly finasteride (PROSCAR) 5 mg tablet Take 5 mg by mouth cream gatherer before breakfast fluticasone propionate (FLONASE) 50 mcg/actuation nasal spray Administer 1 spray into each nostril cream gatherer before breakfast folic acid (FOLVITE) 1 mg tablet Take 1 mg by mouth cream gatherer before breakfast methotrexate 2.5 mg tablet Take 6 tablets by mouth once a week saturday montelukast (SINGULAIR) 10 mg tablet Take 10 mg by mouth nightly multivitamin capsule Take 1 capsule by mouth every morning omeprazole (PriLOSEC) 20 mg capsule Take 40 mg by mouth cream gatherer before breakfast rOPINIRole (REQUIP) 1 mg tablet [...] Patient has advance directive, copy in chart Communication/Director Inbound Sales Needs Communication Needs: Glasses Assistive Devices/DME: Eyeglasses Hearing - Right Ear: Functional Hearing - Left Ear: Functional Discharge Planning Type of Residence: Private residence Living Arrangements: Spouse/significant other Support Systems: Spouse/significant other Assistance Needed: Ara to drive/care for pt Patient expects to be discharged to:: Private residence ELECTRIC NEEDLE SPECIALIST NO ADDITIONAL COMMENTS/ FOLLOW UP IER SELF SERVICE GASOLINE * Pre-Procedure Instructions - Tejal Mariano RN [...] your insurance card, a photo ID (example: Professor Of Finance's License) and a method of payment for [...] Chart. If you are having surgery at [facility], please arrive on the day of [...] Pathway to Excellent Care by the followinglink: [email or web address] How To Prepare Your Skin [...] questions, please call the CPAP Staff at [phone], Saturday-Saturday 8am-4:30pm. All patients should read the below section: All visitors/patients are being asked to wear a clean face mask when entering the hospital. COVID 19 Updates & Visitor Policy: Please access [email or web address] for the most updated information. Information on [facility]: Please view [email or web address] (Patient & Visitor Information) for additional details regarding Advanced Directive forms, AWARE, directions, parking information, lodging, Internet access, dining and more. Information on [facility] or [facility] Surgery [place] ([facility]): Please view [email or web address] (Patient and Visitor Information) for parking/directions and more. For MyChart information, to activate account or password recovery, please go to [email or web address] or call [phone] (toll-free: [phone]). Information for Suicide Prevention: National Suicide Prevention Lifeline (2-753- 420-RUKZ (5720)). Surgery Times: For patients having surgery @ [facility], [facility] for [facility], [facility] or [facility] Surgery [place] ([facility]), if your surgeon's office has not notified you of your surgery time by NOON THE BUSINESS DAY BEFORE your surgery, please call [phone] and ask for your surgeon's office Dr. Ashley Herrera. IER SELF SERVICE GASOLINE documented in this encounter Plan of Treatment [...] SURGICAL PATHOLOGY Routine 05/07/2022 8: 56 AM CASHIER SELF SERVICE GASOLINE Dysplasia of larynx LASER KTP 05/07/2022 8:21 AM CASHIER SELF SERVICE GASOLINE Dysplasia of larynx Special Needs dedo excalibur, ossoff pilling, KTP laser MICROLARYNGOSCOPY WITH BIOPSY/EXCISION LESION 05/07/2022 8:21 AM CASHIER SELF SERVICE GASOLINE Dysplasia of larynx Special Needs dedo excalibur, ossoff pilling, KTP laser documented in this encounter Results * Surgical pathology (05/07/2022 8:56 AM CASHIER SELF SERVICE GASOLINE) Tissue (Mass/Tumor/Lesio n) 05/07/2022 8:56 AM CASHIER SELF SERVICE GASOLINE Tissue (Soft tissue biopsy) 05/07/2022 9:00 AM CASHIER SELF SERVICE GASOLINE Tissue (Soft tissue biopsy) 05/07/2022 9:05 AM CASHIER SELF SERVICE GASOLINE Tissue (Soft tissue biopsy) 05/07/2022 9:08 AM CASHIER SELF SERVICE GASOLINE Tissue (Soft tissue biopsy) 05/07/2022 9:13 AM CASHIER SELF SERVICE GASOLINE Tissue (Soft tissue biopsy) 05/07/2022 9:14 AM CASHIER SELF SERVICE GASOLINE Tissue (Soft tissue biopsy) 05/07/2022 9:19 AM CASHIER SELF SERVICE GASOLINE Narrative PATHOLOGY [facility] - 05/09/2022 10:48 AM CASHIER SELF SERVICE GASOLINE EPIC results best viewed via link to PDF [facility] [place] [address] Note to Patients: This report may contain [...] : ??1945 (Age: 76) Address: ??[address], [place] ??[address] Hospital #: ??[id number] Taken:05/07/2022 Received:05/07/2022 Reported: 05/09/2022 Patient Type: C [...] ?? cnew/05/07/2022 13:57 PA(s): SONIA Gutiérrez, CT ([facility]) By this signature, I attest that the above diagnosis is based upon my personal examination of the slides(and/or other material). Addenda/Procedures The performance characteristics of some immunohistochemical stains, fluorescence in-situ hybridization tests and immunophenotyping by flow cytometry cited in this report (if any) were determined by the Surgical Pathology and Flow Cytometry Departments at [facility] as part of an ongoing chemistry quality [...] Surgical Pathology and Flow Cytometry Departments of [facility]. ??It has not been cleared or approved by the U. S. Food and Drug Administration. IMAGES AND SCANNED DOCUMENTS, IF INCLUDED, ONLY VIEWABLE IN PDF VERSION OF REPORT Nakita Herrera MD LAB PATHOLOGY ORDERA BLES Final Result PATHOLOGY [facility] [phone] documented in this encounter Visit Diagnoses Diagnosis [...] to floor. New Bag 05/07/2022 9:02 AM CASHIER SELF SERVICE GASOLINE Rate/Dose Verify 05/07/2022 8:16 AM CASHIER SELF SERVICE GASOLINE 30 mL/h r New Bag 05/07/2022 7:45 AM CASHIER SELF SERVICE GASOLINE 30 mL/hr 30 mL/hr oxymetazoline (AFRIN) 0.05 % nasal spray As needed, Starting on Sat05/07/22 at 0846, Intra-Op Given 05/07/2022 8:46 AM CASHIER SELF SERVICE GASOLINE 1 application (deactivated) sodium chloride 0.9% irrigation As needed, Starting on Sat05/07/22 at 0750, Intra-Op Given 05/07/2022 7:50 AM CASHIER SELF SERVICE GASOLINE 250 mL Surgical Site documented in this encounter Discontinued Medications Medication Sig Discontinue Reason Start Date End Da te aspirin 81 mg chewable tablet Take 81 mg by mouth cream gatherer before breakfast Error 05/01/2022 escitalopram (LEXAPRO) 10 [...] mg tablet Take 10 mg by mouth cream gatherer before breakfast 3 folic acid (FOLVITE) 1 mg tablet Take 1 tablet (1 mg total) by mouth cream gatherer before breakfast 3 montelukast (SINGULAIR) 10 mg tablet Take 10 mg by mouth nightly 04/12/2022 3 lansoprazole (PREVACID) 30 mg capsule Take 30 mg by mouth 12/19/2021 2 fluticasone propionate (FLONASE) 50 mcg/actuation nasal spray Administer 1 spray into each nostril cream gatherer before breakfast 04/12/2022 3 escitalopram (LEXAPRO) 10 mg tablet Take 10 mg by mouth daily 02/07/2022 2 aspirin 81 mg chewable tablet Take 81 mg by mouth cream gatherer before breakfast 2 albuterol HFA (PROVENTIL HFA,VENTOLIN HFA,PROAIR HFA) 90 mcg/actuation inhaler INHALE 1 TO 2 PUFFS EVERY 4 TO 6 HOURS NEEDED FOR DIFFICULTY BREATHING 06/26/2021 2 added in this encounter Active and Recently Administered Medications Times are shown in CASHIER SELF SERVICE GASOLINE. Continuous Medication Order 05/05/2022 05/06/2022 05/07/2022 Lactated [...] 05/07/2022 documented in this encounter Care Teams Assistant Child Care Teacher Relationship Specialty [place] [address] [facility] [address] [place] [address] Rheumatology 02/21/17 Lashay Downs, RN Registered Nurse Pain Management 06/17/17 Duke Do, RN Registered Nurse 09/09/17 Ngozi Petty MD Radiation Oncologist Radiation Oncology 02/05/19 Jose Roberto Marx MD Referring Physician Otolaryngology 02/05/19 documented as of this encounter
--- OUTSIDE RECORDS SUMMARY | 2024-06-14 23:26 | XMS_ITS | Encounter Summary ---
Author Organization [facility] Address [address] [place] [address] Phone Care Team Providers Care Enterprise Application Administrator Name Role Phone Criss Blanco MD Unavailable Lashay Downs RN Unavailable Unavailab Duke Goodwin RN Unavailable UnavailNgozi Husain MD Unavailable [phone] Jose Roberto Marx MD Unavailable [phone] Reason for Visit * Reason Comments vocal cord lesion * Consultation (Routine) - Closed Specialty Diagnoses / Procedures Referred By Alcira forrest Referred To Contact Otolaryngology Diagnoses 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 ENT [address] [facility] Medical Office Building [address] [place] [address] Nakita Herrera MD [address] [place] [address] Carcinoma in situ of larynx (Primary Dx); [...] on file Legal Sex Male 12:56 AM PROTOZOOLOGIST Gender Identity Not on file Sexual Orientation [...] this encounter. DISPOSITION:6 weeks Dariana Herrera MD Cleat Maker [facility] Division of Laryngology Department of Otolaryngology--Head & Neck Surgery OZOOLOGIST documented in this encounter Plan of Treatment [...] on stairs Contact your local community or [facility] for information on exercise, [...] 2022 documented in this encounter Care Teams Enterprise Application Administrator Relationship Specialty [place] [address] [facility] [address] [place] [address] Rheumatology 02/21/17 Lashay Downs, GAY Registered Nurse Pain Management 06/17/17 Duke Do, GAY Registered Nurse 09/09/17 Ngozi Petty MD Radiation Oncologist Radiation Oncology 02/05/19 Jose Roberto Marx MD Referring Physician Otolaryngology 02/05/19 documented as of this encounter
--- OUTSIDE RECORDS SUMMARY | 2024-06-14 23:26 | XMS_ITS | Encounter Summary ---
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] Procedures [place] LARYNGOSCOPY,DIRCT,OP SCOP,EXC TUMR MICROLARYNGOSCOPY WITH BIOPSY/EXCISION LESION LASER KTP Nakita Herrera MD [address] [place] [address] Phone: tel: fax: Referral ID Status Reason Start Date Expiration Date Visits Re quested Visits Authorized [id number] 04/25/2022 1 1 Encounter Details Date Type Department Care Team (Latest Contact Info) Description 04/30/2022 6:11 AM CYANIDE FURNACE OPERATOR - 04/30/2022 10:47 AM CYANIDE FURNACE OPERATOR Hospital Encounter [facility] Operating Room [address] [place] [address] [address] Nakita Herrera MD [address] [place] [address] Lesion of vocal fold Discharge [...] on file Legal Sex Male 12:56 AM CYANIDE FURNACE OPERATOR Gender Identity Not on file Sexual Orientation Not on file 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 on file Not on natalie e documented as of this encounter Last Filed Vital Signs Vital Sign Reading Time Taken Comments Blood Pressure 129/69 04/30/2022 10:35 AM CYANIDE FURNACE OPERATOR Pulse 71 04/30/2022 10:35 AM CYANIDE FURNACE OPERATOR Temperature 36.5 ??C (97.7 ??F) 04/30/2022 10:[address] Respiratory Rate 20 04/30/2022 10:35 AM CYANIDE FURNACE OPERATOR Oxygen Saturation 96% 04/30/2022 10:35 AM CYANIDE FURNACE OPERATOR Inhaled Oxygen Concentration - - Weight 99.3 kg (219 lb) 04/30/2022 6:41 AM CYANIDE FURNACE OPERATOR Height 185.4 cm (6' 1 ) 04/30/2022 6:41 AM CYANIDE FURNACE OPERATOR Body Mass Index 28.89 04/30/2022 6:41 AM CYANIDE FURNACE OPERATOR documented in this encounter Discharge Instructions * Discharge Instructions* Lui Thompson MD - 04/30/2022 9:58 AM CYANIDE FURNACE OPERATOR ENT Post Operative Discharge Instructions Procedure: [...] or contact the main office line at [phone]. Follow up: You should follow up in Nakita Eddy MD's clinic as scheduled below. [place] [phone] OTHER FOLLOW UP: 1. PCP - for management of all chronic illnesses No future appointments. Phone numbers Appointment Scheduling / During Regular Business Hours (8am-5pm Saturday through Saturday): Emergent Concerns after hours or Weekends: Call and ask for the ENT resident telecommunications support. Questions: If you have any concerns or questions, or develop worrisome symptoms such as worsening pain or swelling, bleeding, fever, or vomiting, call your doctor. IDE FURNACE OPERATOR IDE FURNACE OPERATOR IDE FURNACE OPERATOR documented in this encounter Medications at Time of Discharge finasteride (PROSCAR) 5 mg tabletIndications :benign prostatic hyperplasia with lower urinary tract sx Take 1 tablet (5 mg total) by mouth retail office manager before breakfast multivitamin capsuleIndication s:Vitamin Deficiency [...] spray Administer 1 spray into each nostril retail office manager before breakfast 04/12/2022 3 lansoprazole (PREVACID) 30 mg capsule Take 30 mg by mouth 12/19/2021 2 methotrexate 2.5 mg tablet Take 6 tablets (15 mg total) by mouth once a week saturday02/02/2020 3 montelukast (SINGULAIR) 10 mg tablet Take 10 mg by mouth nightly 04/12/2022 3 omeprazole (PriLOSEC) 20 mg capsule Take 2 capsules (40 mg total) by mouth retail office manager before breakfast 3 rOPINIRole (REQUIP) 1 mg [...] Procedure(s): MICROLARYNGOSCOPY WITH BIOPSY/EXCISION LESION LASER KTP IDE FURNACE OPERATOR Source Note - Nakita Herrera MD - 04/25/2022 9:00 AM CYANIDE FURNACE OPERATOR PATIENT NAME: Pasquale Sanchez : 1945 DOS: [...] for his . OUTCOMES: VCI-11 RSI-21 GFI-7 [id number] REVIEW OF SYSTEMS: A complete past medical [...] OTHER MEDICAL hemorroids; Comments: Had done at [facility] in [place] HX OTHER MEDICAL bladder infection HX OTHER MEDICAL kidney stone Low back pain Malignant neoplasm of 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 Migraine Rheumatoid arthritis ([facility]) Past Surgeries: has a past surgical history that includes Biceps Tenodesis (Left, ); Ear Surgery (Left, ); Orchiectomy (Right, ); Vasectomy (); Rotator cuff repair (Right, ); Lithotripsy ( - [id number]); Laryngoscopy (Right, 01/09/2019); Laryngoscopy (Right, 02/16/2019); Shouldersurgery [...] in this encounter. DISPOSITION:OR Dariana Herrera MD Video Software Engineer [facility] Division of Laryngology Department of Otolaryngology--Head & Neck Surgery IDE FURNACE OPERATOR documented in this encounter Miscellaneous Notes [...] participated in the entirety of the procedure IDE FURNACE OPERATOR documented in this encounter Plan of [...] SURGICAL PATHOLOGY Routine 04/30/2022 9: 29 AM CYANIDE FURNACE OPERATOR Lesion of vocal fold LASER KTP 04/30/2022 8:41 AM CYANIDE FURNACE OPERATOR Lesion of vocal fold Case Notes Microlaryngeal set, sataloff knife, dedo excalibur, OP available. KTP laser Special Needs Microlaryngeal set, sataloff knife, dedo excalibur, OP available. MICROLARYNGOSCOPY WITH BIOPSY/EXCISION LESION 04/30/2022 8:41 AM CYANIDE FURNACE OPERATOR Lesion of vocal fold Case Notes Microlaryngeal set, sataloff knife, dedo excalibur, OP available. KTP laser Special Needs Microlaryngeal set, sataloff knife, dedo excalibur, OP available. documented in this encounter Results * Surgical pathology (04/30/2022 9:29 AM CYANIDE FURNACE OPERATOR) Tissue (Vocal Cord, Biopsy) 04/30/2022 9:29 AM CYANIDE FURNACE OPERATOR Tissue (Vocal Cord, Biopsy) 04/30/2022 9:30 AM CYANIDE FURNACE OPERATOR Narrative PATHOLOGY [facility] - 05/01/2022 11:22 AM CYANIDE FURNACE OPERATOR EPIC results best viewed via link to PDF [facility] [place] [address] Note to Patients: This report may contain [...] : ??1945 (Age: 76) Address: ??[address], [place] ??[address] Hospital #: ??[id number] Taken:04/30/2022 Received:04/30/2022 Reported: 05/01/2022 Patient Type: BWC [...] interpretation for this case was performed at [facility], Department of Surgical Pathology, [address] [facility], [place] [id number], ??[facility], [place] ??[address] ?? CLIA # [id number]. Kimberly Jones M.D. History: The patient is [...] Surgical Pathology and Flow Cytometry Departments at [facility] as part of an ongoing clinical quality assurance associate program and in compliance with federally mandated [...] Surgical Pathology and Flow Cytometry Departments of [facility]. ??It has not been cleared or approved by the U. S. Food and Drug Administration. IMAGES AND SCANNED DOCUMENTS, IF INCLUDED, ONLY VIEWABLE IN PDF VERSION OF REPORT Nakita Herrera MD LAB PATHOLOGY ORDERA KIERANS Final Result PATHOLOGY [facility] [phone] documented in this encounter Visit Diagnoses Diagnosis [...] to floor. New Bag 04/30/2022 9:35 AM CYANIDE FURNACE OPERATOR Rate/Dose Verify 04/30/2022 8:36 AM CYANIDE FURNACE OPERATOR 30 mL/h r New Bag 04/30/2022 7:21 AM CYANIDE FURNACE OPERATOR 30 mL/hr 30 mL/hr documented in [...] 1 tablet (5 mg total) by mouth retail office manager before breakfast rOPINIRole (REQUIP) 1 mg tablet Take 2 tablets (2 mg total) by mouth nightly 3 omeprazole (PriLOSEC) 20 mg capsule Take 2 capsules (40 mg total) by mouth retail office manager before breakfast 3 added in this encounter Active and Recently Administered Medications Times are shown in CYANIDE FURNACE OPERATOR. Continuous Medication Order 04/28/2022 04/29/2022 04/30/2022 Lactated [...] Use as 1st line for Inpatients at [facility].?Use Use as second line for OC after [...] 04/30/2022 documented in this encounter Care Teams Chlorine Plant Operator Relationship Specialty [place] [address] [place] [address] Rheumatology 02/21/17 Lashay Downs, RN Registered Nurse Pain Management 06/17/17 Duke Do, RN Registered Nurse 09/09/17 Ngozi Petty MD Radiation Oncologist Radiation Oncology 02/05/19 Jose Roberto Marx MD Referring Physician Otolaryngology 02/05/19 documented as of this encounter
--- OUTSIDE RECORDS SUMMARY | 2024-06-14 23:26 | XMS_ITS | Encounter Summary ---
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] Procedures MA LARGSC EXC STEFANIA&/STRPG CORDS/EPIGL MCRSCP/TLSCP MICROLARYNGOSCOPY WITH BIOPSY/EXCISION LESION LASER KTP Nakita Herrera MD [address] [place] [address] Phone: tel: fax: Referral ID Status Reason Start Date Expiration Date Visits Re quested Visits Authorized [id number] 05/01/2022 1 1 Encounter Details Date Type Department Care Team (Latest Contact Info) Description 05/07/2022 7:19 AM CALL OUT CLERK - 05/07/2022 11:03 AM CALL OUT CLERK Hospital Encounter [facility] Operating Room [address] [address] Nakita Herrera MD [address] [place] [address] Dysplasia of larynx Discharge Disposition: [...] on file Legal Sex Male 12:56 AM CALL OUT CLERK Gender Identity Not on file Sexual Orientation Not on file 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 on file Not on natalie e documented as of this encounter Last Filed Vital Signs Vital Sign Reading Time Taken Comments Blood Pressure 127/68 05/07/2022 10:20 AM CALL OUT CLERK Pulse 75 05/07/2022 10:20 AM CALL OUT CLERK Temperature 36.2 ??C (97.2 ??F) 05/07/2022 10:[address] Respiratory Rate 17 05/07/2022 10:20 AM CALL OUT CLERK Oxygen Saturation 92% 05/07/2022 10:20 AM CALL OUT CLERK Inhaled Oxygen Concentration - - Weight 98 kg (216 lb) 05/07/2022 7:26 AM CALL OUT CLERK Height 185.4 cm (6' 1 ) 05/07/2022 7:26 AM CALL OUT CLERK Body Mass Index 28.5 05/07/2022 7:26 AM CALL OUT CLERK documented in this encounter Discharge Instructions * Discharge Instructions* Margareth Flores RN - 05/07/2022 8:12 AM CALL OUT CLERK ENT Post Operative Discharge Instructions Procedure: Direct [...] needed. - Stool Softener: Take stool softener ([id number] or prescription) while taking narcotic medication to [...] or contact the main office line at [phone]. Follow up: You should follow up in Nakita Eddy MD's clinic as scheduled below. [facility] - Medical Office Building [address] [place] [address] [address] OTHER FOLLOW UP: 1. PCP - for management of all chronic illnesses Future Appointments Date Time Provider Department Center 2022 10:20 AM Nakita Herrera MD [facility]N [address] OY Phone numbers Appointment Scheduling: Urgent Concerns after hours or Weekends: Call and ask for the ENT resident crayon painter. During Regular Business Hours (8am-5pm Saturday through Saturday): [phone] Herrera's nurse Questions: [...] of narcotic pain medication include Percocet, Oxycontin, Kremlin, Hydrocodone, and Oxycodone. FAQs (frequently asked questions) [...] physical therapy, we are available to assist: [facility] STAR: [facility] [phone] [place] [phone] [facility] [phone] How are some things that you can [...] given by your doctor or other health memory care program director. OUT CLERK OUT CLERK OUT CLERK documented in this encounter Medications at Time of Discharge finasteride (PROSCAR) 5 mg tabletIndications :benign prostatic hyperplasia with lower urinary tract sx Take 1 tablet (5 mg total) by mouth emblem maker before breakfast multivitamin capsuleIndication s:Vitamin Deficiency Prevention Take 1 capsule by mouth every morning vit A/vit C/vit E/zinc/copper (PRESERVISION AREDS ORAL) Take 1 capsule by mouth 2 (two) times a day cetirizine (ZyrTEC) 10 mg tablet Take 10 mg by mouth emblem maker before breakfast 3 famotidine (PEPCID) 40 mg tablet Take 1 tablet (40 mg total) by mouth nightly 03/28/2020 3 fluticasone propionate (FLONASE) 50 mcg/actuation nasal spray Administer 1 spray into each nostril emblem maker before breakfast 04/12/2022 3 folic acid (FOLVITE) 1 mg tablet Take 1 tablet (1 mg total) by mouth emblem maker before breakfast 3 methotrexate 2.5 mg tablet Take 6 tablets (15 mg total) by mouth once a week saturday02/02/2020 3 montelukast (SINGULAIR) 10 mg tablet Take 10 mg by mouth nightly 04/12/2022 3 omeprazole (PriLOSEC) 20 mg capsule Take 2 capsules (40 mg total) by mouth emblem maker before breakfast 3 oxyCODONE (ROXICODONE) 5 mg [...] Physical Exam: General: NAD, alert, gravely voice aerospace quality engineer: NC, AT Eyes: Sclera white, [...] Nakita Herrera MD at 05/07/2022 8:18 AM CALL OUT CLERK OUT CLERK OUT CLERK Source Note - Elizabeth Zelda JOSEPH Muhammad - 05/02/2022 9:30 AM CALL OUT CLERK Images from the original note were not included. [facility] for Preoperative Assessment and Planning Preoperative Evaluation Record Evaluation type/location: TPAP from [facility] Planned procedure site: [facility] OR Date: 05/02/22 NOTE: This [...] via telephone and in writing sent via [employer] mail. Patient verbalized understanding of preoperative plan. TPAP Complete Preoperative evaluation performed by Zelda Johnson NP on 05/02/22 at 9:34 AM. Patient Active Problem List Diagnosis ??? 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 Headache ??? 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 DDD (degenerative disc [...] MEDICAL hemorroids; Comments: Had done at [facility] in [place] ??? HX OTHER MEDICAL bladder infection ??? [...] LITHOTRIPSY 5 or 6 times s - [id number] ??? ORCHIECTOMY Right 1970's ??? OTHER SURGICAL [...] last 720 hours. Marcelle index score: 100 OUT CLERK documented in this encounter Miscellaneous Notes [...] participated in the entirety of the procedure OUT CLERK * Pre-Procedure Instructions - Zelda Johnson NP - 05/02/2022 9:10 AM CALL OUT CLERK Center for Preoperative Assessment and Planning CPAP Clinic Location: [facility] The night before your surgery: [...] with COVID-19. You test positive for COVID-19. OUT CLERK * Perioperative Nursing Note - Tejal Mariano RN - 05/01/2022 5:34 PM CST [facility] Preoperative Assessment [facility] Planning Perioperative Nursing Note Telephone Preoperative Evaluation (LOC[facility] WITHIN [facility]) - TELEPHONE ONLY, NO PHYSICAL [...] mg tablet Take 10 mg by mouth emblem maker before breakfast famotidine (PEPCID) 40 mg tablet Take 40 mg by mouth nightly finasteride (PROSCAR) 5 mg tablet Take 5 mg by mouth emblem maker before breakfast fluticasone propionate (FLONASE) 50 mcg/actuation nasal spray Administer 1 spray into each nostril emblem maker before breakfast folic acid (FOLVITE) 1 mg tablet Take 1 mg by mouth emblem maker before breakfast methotrexate 2.5 mg tablet Take 6 tablets by mouth once a week saturday montelukast (SINGULAIR) 10 mg tablet Take 10 mg by mouth nightly multivitamin capsule Take 1 capsule by mouth every morning omeprazole (PriLOSEC) 20 mg capsule Take 40 mg by mouth emblem maker before breakfast rOPINIRole (REQUIP) 1 mg tablet [...] Patient has advance directive, copy in chart Communication/Gas Usage Meter Clerk Needs Communication Needs: Glasses Assistive Devices/DME: Eyeglasses Hearing - Right Ear: Functional Hearing - Left Ear: Functional Discharge Planning Type of Residence: Private residence Living Arrangements: Spouse/significant other Support Systems: Spouse/significant other Assistance Needed: Ara to drive/care for pt Patient expects to be discharged to:: Private residence VISUAL C DEVELOPER NO ADDITIONAL COMMENTS/ FOLLOW UP OUT CLERK * Pre-Procedure Instructions - Tejal Mariano RN [...] your insurance card, a photo ID (example: Real Estate Closing Coordinator's License) and a method of payment for [...] Chart. If you are having surgery at [facility], please arrive on the day [...] Pathway to Excellent Care by the followinglink: [email or web address] How To Prepare Your Skin [...] questions, please call the CPAP Staff at [phone], Saturday-Saturday 8am-4:30pm. All patients should read the below section: All visitors/patients are being asked to wear a clean face mask when entering the hospital. COVID 19 Updates & Visitor Policy: Please access [email or web address] for the most updated information. Information on [facility]: Please view [email or web address] (Patient & Visitor Information) for additional details regarding Advanced Directive forms, AWARE, directions, parking information, lodging, Internet access, dining and more. Information on [facility] or [facility] [place] ([facility]): Please view [email or web address] (Patient and Visitor Information) for parking/directions and more. For MyChart information, to activate account or password recovery, please go to [email or web address] or call [phone] (toll-free: [phone]). Information for Suicide Prevention: National Suicide Prevention Lifeline (8-645- 155-LYDX (2585)). Surgery Times: For patients having surgery @ [facility], [facility], [facility] or [facility] ([facility]), if your surgeon's office has not notified you of your surgery time by NOON THE BUSINESS DAY BEFORE your surgery, please call [phone] and ask for your surgeon's office Dr. Ashley Herrera. OUT CLERK documented in this encounter Plan of [...] on stairs Contact your local community or [facility] for information on exercise, fall prevention programs, or options for improving home safety. documented as of this encounter Procedures Procedure Name Priority Date/Time Associated Diagnosis Comments SURGICAL PATHOLOGY Routine 05/07/2022 8: 56 AM CALL OUT CLERK Dysplasia of larynx LASER KTP 05/07/2022 8:21 AM CALL OUT CLERK Dysplasia of larynx Special Needs dedo excalibur, ossoff pilling, KTP laser MICROLARYNGOSCOPY WITH BIOPSY/EXCISION LESION 05/07/2022 8:21 AM CALL OUT CLERK Dysplasia of larynx Special Needs dedo excalibur, ossoff pilling, KTP laser documented in this encounter Results * Surgical pathology (05/07/2022 8:56 AM CALL OUT CLERK) Tissue (Mass/Tumor/Lesio n) 05/07/2022 8:56 AM CALL OUT CLERK Tissue (Soft tissue biopsy) 05/07/2022 9:00 AM CALL OUT CLERK Tissue (Soft tissue biopsy) 05/07/2022 9:05 AM CALL OUT CLERK Tissue (Soft tissue biopsy) 05/07/2022 9:08 AM CALL OUT CLERK Tissue (Soft tissue biopsy) 05/07/2022 9:13 AM CALL OUT CLERK Tissue (Soft tissue biopsy) 05/07/2022 9:14 AM CALL OUT CLERK Tissue (Soft tissue biopsy) 05/07/2022 9:19 AM CALL OUT CLERK Narrative PATHOLOGY [facility] - 05/09/2022 10:48 AM CALL OUT CLERK EPIC results best viewed via link to PDF [facility] [place] [address] Note to Patients: This report may contain [...] : ??1945 (Age: 76) Address: ??[address] [place], [place] ??[address] Hospital #: ??[id number] Taken:05/07/2022 Received:05/07/2022 Reported: 05/09/2022 Patient Type: BWC [...] cnewho05/07/2022 13:57 PA(s): So Mayer, BS, CT ([facility]) By this signature, I attest that the above diagnosis is based upon my personal examination of the slides(and/or other material). Addenda/Procedures The performance characteristics of some immunohistochemical stains, fluorescence in-situ hybridization tests and immunophenotyping by flow cytometry cited in this report (if any) were determined by the Surgical Pathology and Flow Cytometry Departments at [facility] as part of an ongoing quality controller program and in compliance with federally mandated [...] Pathology and Flow Cytometry Departments of [facility]. ??It has not been cleared or approved by the U. S. Food and Drug Administration. IMAGES AND SCANNED DOCUMENTS, IF INCLUDED, ONLY VIEWABLE IN PDF VERSION OF REPORT Nakita Herrera MD LAB PATHOLOGY ORDERA VINAY Final Result PATHOLOGY [facility] [phone] documented in this encounter Visit Diagnoses Diagnosis [...] to floor. New Bag 05/07/2022 9:02 AM CALL OUT CLERK Rate/Dose Verify 05/07/2022 8:16 AM CALL OUT CLERK 30 mL/h r New Bag 05/07/2022 7:45 AM CALL OUT CLERK 30 mL/hr 30 mL/hr documented in this encounter Discontinued Medications Medication Sig Discontinue Reason Start Date End Da te aspirin 81 mg chewable tablet Take 81 mg by mouth emblem maker before breakfast Error 05/01/2022 escitalopram (LEXAPRO) 10 [...] mg tablet Take 10 mg by mouth emblem maker before breakfast 3 folic acid (FOLVITE) 1 mg tablet Take 1 tablet (1 mg total) by mouth emblem maker before breakfast 3 montelukast (SINGULAIR) 10 mg tablet Take 10 mg by mouth nightly 04/12/2022 3 lansoprazole (PREVACID) 30 mg capsule Take 30 mg by mouth 12/19/2021 2 fluticasone propionate (FLONASE) 50 mcg/actuation nasal spray Administer 1 spray into each nostril emblem maker before breakfast 04/12/2022 3 escitalopram (LEXAPRO) 10 mg tablet Take 10 mg by mouth daily 02/07/2022 2 aspirin 81 mg chewable tablet Take 81 mg by mouth emblem maker before breakfast 2 albuterol HFA (PROVENTIL HFA,VENTOLIN HFA,PROAIR HFA) 90 mcg/actuation inhaler INHALE 1 TO 2 PUFFS EVERY 4 TO 6 HOURS NEEDED FOR DIFFICULTY BREATHING 06/26/2021 2 added in this encounter Active and Recently Administered Medications Times are shown in CALL OUT CLERK. Continuous Medication Order 05/05/2022 05/06/2022 05/07/2022 Lactated [...] 05/07/2022 documented in this encounter Care Teams Parts Counter Clerk Relationship Specialty [place] [address] [facility] [address] [place] [address] Rheumatology 02/21/17 Lashay Downs, RN Registered Nurse Pain Management 06/17/17 Duke Do, RN Registered Nurse 09/09/17 Ngozi Petty MD Radiation Oncologist Radiation Oncology 02/05/19 Jose Roberto aMrx MD Referring Physician Otolaryngology 02/05/19 documented as of this encounter
--- OUTSIDE RECORDS SUMMARY | 2024-06-14 23:26 | XMS_ITS | Encounter Summary ---
Author Organization [facility] Address [address] [place] [address] Phone Care Team Providers Care Collection Systems Foreman Name Role Phone Criss Blanco MD Unavailable Lashay Downs RN Unavailable Unavailab Duke Goodwin RN Unavailable UnavailNgozi Husain MD Unavailable [phone] Jose Roberto Marx MD Unavailable [phone] Reason for Visit * Reason Comments Vocal Cord Paralysis * Consultation (Routine) - Closed Specialty Diagnoses / Procedures Referred By Alicra forrest Referred To Contact Otolaryngology Diagnoses 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) Viraj Romeo, ZOILA [address] [place] [address] Phone: tel: fax: [facility] (All Locations) Referral ID Status Reason Start Date Expiration Date V isits Requested Visits Authorized [id number] Closed Specialty Services Required 03/20/2022 06/02/2023 12 12 Encounter Details Date Type Department Care Team (Late st Contact Info) Description 04/25/2022 9:00 AM BUSINESS ANALYST MANAGER Office Visit [facility] ENT [address] [facility] Medical Office Building [address] [place] [address] Nakita Herrera MD [address] [place] [address] Lesion of vocal fold (Primary Dx); History [...] file Legal Sex Male 12:56 AM BUSINESS ANALYST MANAGER Gender Identity Not on file Sexual [...] for his . OUTCOMES: VCI-11 RSI-21 GFI-7 [id number] REVIEW OF SYSTEMS: A complete past medical [...] kidney Nephrolithiasis Cancer of vocal cord (CMS/HCC) ([facility]) Depression Gastric reflux Gastroesophageal reflux [...] OTHER MEDICAL hemorroids; Comments: [facility] [place] HX OTHER MEDICAL bladder infection HX OTHER MEDICAL kidney stone Low back pain Malignant neoplasm of prostate (CMS/HCC) ([facility]) 1998 prostate Migraine Rheumatoid arthritis ([facility]) Past Surgeries: has a past surgical history that includes Biceps Tenodesis (Left, 1969's); Ear Surgery (Left, 1969's); Orchiectomy (Right, ); Vasectomy (); Rotator cuff repair (Right, ); Lithotripsy (s - 1020-1143); Laryngoscopy (Right, 01/09/2019); Laryngoscopy (Right, 02/16/2019); Shouldersurgery [...] in this encounter. DISPOSITION:OR Dariana Herrera MD Water Vessel Captain [facility] Division of Laryngology Department of Otolaryngology--Head & Neck Surgery NESS ANALYST MANAGER documented in this encounter Plan of [...] 04/25/2022 documented in this encounter Care Teams Collection Systems Foreman Relationship Specialty [place] [address] [facility] [address] [place] [address] Rheumatology 02/21/17 Lashay Downs, RN Registered Nurse Pain Management 06/17/17 Duke Do, RN Registered Nurse 09/09/17 Ngozi Petty MD Radiation Oncologist Radiation Oncology 02/05/19 Jose Roberto Marx MD Referring Physician Otolaryngology 02/05/19 documented as of this encounter
--- OUTSIDE RECORDS SUMMARY | 2024-06-14 23:26 | XMS_ITS | Encounter Summary ---
Author Organization [facility] Address [address] [place] [address] Care Team Providers Care Assistant Plant Control Operator Name Role Phone Criss Blanco MD Unavailable Lashay Downs RN Unavailable Unavailab Duke Goodwin RN Unavailable UnavailNgozi Husain MD Unavailable [phone] Jose Roberto Marx MD Unavailable [phone] Reason for Visit * Auth/Cert Specialty Diagnoses / Procedures Referred By Contac t Referred To Contact Diagnoses Lesion of vocal fold 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] Procedures UT LARYNGOSCOPY,DIRCT,OP SCOP,EXC TUMR MICROLARYNGOSCOPY WITH BIOPSY/EXCISION LESION LASER KTP Nakita Herrera MD [address] [place] [address] Phone: tel: fax: Referral ID Status Reason Start Date Expiration Date Visits Re quested Visits Authorized [id number] 04/25/2022 1 1 Encounter Details Date Type Department Care Team (Late st Contact Info) Description 04/30/2022 8:36 AM MORTGAGE LOAN PROCESSOR Anesthesia Event [facility] Operating Room [address] [place] [address] Milan Roy MD [address] [place] [address] Leticia Gresham CRNA [address] [place] [address] Anesthesia Record Procedure Summary Procedure Name Responsible [...] on file Legal Sex Male 12:56 AM MORTGAGE LOAN PROCESSOR Gender Identity Not on file Sexual Orientation Not on file 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 GAGE LOAN PROCESSOR * Anesthesia Procedure Notes - Leticia Gresham CRNA - 04/30/2022 9:02 AM MORTGAGE LOAN PROCESSOR Associated Order(s): Airway Airway Patient location: OR [...] of attempts: 1 Ventilation between attempts: none GAGE LOAN PROCESSOR * Anesthesia Preprocedure Evaluation - Milan Roy MD - 04/30/2022 7:00 AM CST Images from the original note were not included. Anesthesia Evaluation Samuel Sanchez is a 76 y.o. 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 Headache ??? ad terminal makeup operator use of drug ??? DDD (degenerative disc [...] MEDICAL hemorroids; Comments: Had done at [facility] in [place] ??? HX OTHER MEDICAL bladder infection ??? [...] Right vocal fold lesion ??? LITHOTRIPSY - 8367-4576 5 or 6 times ??? ORCHIECTOMY Right [...] Medication protocol when under care of a WHITESMITH Planned anesthesia: General Team communication plan: LMA [...] and agree to proceed. All questions answered. GAGE LOAN PROCESSOR documented in this encounter Plan of Treatment [...] on stairs Contact your local community or [facility] for information on exercise, fall prevention programs, or options for improving home safety. documented as of this encounter Procedures Procedure Name Priority Date/Time Associated Diagnosis Comments UT AN PROCEDURE PLACEHOLDER Routine 04/30/2022 9:02 AM MORTGAGE LOAN PROCESSOR UT AN ELECTIVE ENDOTRACHEAL AIRWAY Routine 04/30/2022 9:02 AM MORTGAGE LOAN PROCESSOR documented in this encounter Results * UT AN ELECTIVE ENDOTRACHEAL AIRWAY, UT AN PROCEDURE PLACEHOLDER (04/30/2022 9:02 AM MORTGAGE LOAN PROCESSOR) Narrative Leticia Gresham CRNA - 04/30/2022 9:02 AM MORTGAGE LOAN PROCESSOR Leticia Gresham CRNA ? 04/30/2022 ??9:03 AM [...] 0846, Anesthesia Intra-op Given 04/30/2022 8:46 AM MORTGAGE LOAN PROCESSOR 8 mg fentaNYL (SUBLIMAZE) preservative free injection intravenous, As needed, Starting on Sat04/30/22 at 0846, Anesthesia Intra-op Given 04/30/2022 8:46 AM MORTGAGE LOAN PROCESSOR 100 mcg Lactated Ringer's (LR) infusion 30 mL/hr, intravenous, Continuous, Starting on Sat04/30/22 at 0745, For 4 hours, Pre-Op, Use a 500 ml bag for End Stage Renal Disease Patients. Discontinue if fluid still running once patient arrives to floor. New Bag 04/30/2022 9:35 AM MORTGAGE LOAN PROCESSOR Rate/Dose Verify 04/30/2022 8:36 AM MORTGAGE LOAN PROCESSOR 30 mL/h r New Bag 04/30/2022 7:21 AM MORTGAGE LOAN PROCESSOR 30 mL/hr 30 mL/hr lidocaine PF (XYLOCAINE) 10 mg/mL (1 %) preservative free injection intravenous, As needed, Starting on Sat04/30/22 at 0846, Anesthesia Intra-op Given 04/30/2022 8:46 AM MORTGAGE LOAN PROCESSOR 50 mg ondansetron (ZOFRAN) injection intravenous, Administer over 2 Minutes, As needed, Starting on Sat04/30/22 at 0950, Anesthesia Intra-op Given 04/30/2022 9:50 AM MORTGAGE LOAN PROCESSOR 4 mg propofoL (DIPRIVAN) 10 mg/mL IV intravenous, As needed, Starting on Sat04/30/22 at 0846, Anesthesia Intra-op Given 04/30/2022 8:46 AM MORTGAGE LOAN PROCESSOR 200 mg rocuronium (ZEMURON) injection intravenous, As needed, Starting on Sat04/30/22 at 0900, Anesthesia Intra-op Given 04/30/2022 9:00 AM MORTGAGE LOAN PROCESSOR 10 mg Given 04/30/2022 8:46 AM MORTGAGE LOAN PROCESSOR 30 mg sugammadex (BRIDION) 100 mg/mL intravenous solution intravenous, As needed, Starting on Sat04/30/22 at 0946, Anesthesia Intra-op Given 04/30/2022 9:46 AM MORTGAGE LOAN PROCESSOR 200 mg documented in this encounter Care Teams Assistant Plant Control Operator Relationship Specialty [place] [address] [facility] [address] [place] [address] Rheumatology 02/21/17 Lashay Downs, RN Registered Nurse Pain Management 06/17/17 Duke Do, RN Registered Nurse 09/09/17 Ngozi Petty MD Radiation Oncologist Radiation Oncology 02/05/19 Jose Roberto Marx MD Referring Physician Otolaryngology 02/05/19 documented as of this encounter
--- OUTSIDE RECORDS SUMMARY | 2024-06-14 23:26 | XMS_ITS | Encounter Summary ---
Author Organization [facility] Address [address] [place] [address] Phone Care Team Providers Care Bulb Inspector Name Role Phone Criss Blanco MD Unavailable Lashay Downs RN Unavailable Unavailab Duke Goodwin RN Unavailable UnavailNgozi Husain MD Unavailable [phone] Jose Roberto Marx MD Unavailable [phone] Encounter Details Date Type Department Care Team (Late st Contact Info) Description 07/02/2022 Telephone [place] [address] [facility] Medical Office Building [address] [place] [address] Trina Jung RN Social History [...] on file Legal Sex Male 12:56 AM SECURITY SYSTEM ENGINEER Gender Identity Not on file Sexual Orientation Not on file 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 Appt to be printed on AVS at discharge. Will alsomail home appt reminders. RITY SYSTEM ENGINEER * Telephone Encounter - Trina Jung RN - 07/02/2022 11:11 AM CST ----- Message from Oneida Read MD PhD sent at 07/01/2022 7:55 PM SECURITY SYSTEM ENGINEER ----- Regarding: Follow-up Please schedule a follow-up [...] n/a Thank you Oneida Read MD PhD RITY SYSTEM ENGINEER documented in this encounter Plan of [...] on stairs Contact your local community or [facility] for information on exercise, fall prevention programs, or options for improving home safety. documented as of this encounter Visit Diagnoses Not on filedocumented in this encounter Care Teams Bulb Inspector Relationship Specialty [place] [address] [facility] [address] [place] [address] Rheumatology 02/21/17 Lashay Downs, GAY Registered Nurse Pain Management 06/17/17 Duke Do, RN Registered Nurse 09/09/17 Ngozi Petty MD Radiation Oncologist Radiation Oncology 02/05/19 Jose Roberto Marx MD Referring Physician Otolaryngology 02/05/19 documented as of this encounter
--- OUTSIDE RECORDS SUMMARY | 2024-06-14 23:26 | XMS_ITS | Encounter Summary ---
Author Organization [facility] Address [address] [place] [address] Phone Care Team Providers Care Railroad Shop Inspector Name Role Phone Criss Blanco MD Unavailable Lashay Downs RN Unavailable Unavailab Duke Goodwin RN Unavailable UnavailNgozi Husain MD Unavailable [phone] Jose Roberto Marx MD Unavailable [phone] Reason for Referral * MRI/CAT/PET Scan (Routine) - Closed Specialty Diagnoses / Procedures Referred By Alcira forrest Referred To Contact Radiology Diagnoses SDH (subdural hematoma) (HCC) Procedures CT Head WO Contrast Baldo Bailey PA [address] [place] [address] Phone: tel: fax: [place] [address] [place] [address] Referral ID Status Reason Start Date Expiration Date Visits Re quested Visits Authorized [id number] Closed 07/02/2022 08/01/2023 1 1 TRIC SEALING MACHINE OPERATOR Encounter Details Date Type Department Care Team (Late st Contact Info) Description 07/02/2022 Orders Only [facility] Neurosurgery [address] [facility] Medical Office Building [address] [place] [address] Baldo Bailey PA [address] [place] [address] SDH (subdural hematoma) (Primary Dx) Social History [...] on file Legal Sex Male 12:56 AM ELECTRIC SEALING MACHINE OPERATOR Gender Identity Not on file [...] CT Head WO Contrast (08/08/2022 12:34 PM ELECTRIC SEALING MACHINE OPERATOR) Anatomical Region Laterality Modality Head and Neck N/A Computed Tomogra phy 08/08/2022 1:40 PM ELECTRIC SEALING MACHINE OPERATOR Impressions 08/08/2022 1:40 PM ELECTRIC SEALING MACHINE OPERATOR Slightly mixed density subdural hematoma along the left cerebral convexity which is similar or slightly decreased in thickness compared to prior study. ??No midline shift. Electronically signed by: Waqas Ashraf MD, PHD Narrative 08/08/2022 1:40 PM ELECTRIC SEALING MACHINE OPERATOR EXAMINATION: Noncontrast head CT HISTORY: Subdural hematoma [...] hemorrhage documented in this encounter Care Teams Railroad Shop Inspector Relationship Specialty [place] [address] [address] Rheumatology 02/21/17 Lashay Downs, RN Registered Nurse Pain Management 06/17/17 Duke Do, RN Registered Nurse 09/09/17 Ngozi Petty MD Radiation Oncologist Radiation Oncology 02/05/19 Jose Roberto Marx MD Referring Physician Otolaryngology 02/05/19 documented as of this encounter
--- OUTSIDE RECORDS SUMMARY | 2024-06-14 23:26 | XMS_ITS | Encounter Summary ---
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] Procedures GA LARGSC EXC STEFANIA&/STRPG CORDS/EPIGL MCRSCP/TLSCP MICROLARYNGOSCOPY WITH BIOPSY/EXCISION LESION LASER KTP Nakita Herrera MD [address] [place] [address] Phone: tel: fax: Referral ID Status Reason Start Date Expiration Date Visits Re quested Visits Authorized [id number] 05/01/2022 1 1 Encounter Details Date Type Department Care Team (Late st Contact Info) Description 05/07/2022 8:16 AM FLOORWORKER Anesthesia Event [facility] Operating Room [address] [facility] [place] [address] Matthew [place] MD [address] [place], [place] [address] Zelda Johnson NP [address] [place] [address] Anesthesia Record Procedure Summary Procedure Name Responsible [...] on file Legal Sex Male 12:56 AM FLOORWORKER Gender Identity Not on file Sexual Orientation Not on file 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 Not on file Not on natalie e documented as of this encounter OR Notes * Anesthesia Postprocedure Evaluation - Matthew [place] MD - 05/07/2022 10:01 AM CST Patient: Samuel Sanchez Procedure Summary Date: 05/07/22 Room / Location: [facility] OPERATING ROOM [facility] OPERATING ROOM Anesthesia Start: 815 Anesthesia Stop: [...] Nausea/Vomiting status: none No notable events documented. RWORKER * Anesthesia Procedure Notes - Leticia Gresham CRNA - 05/07/2022 8:51 AM FLOORWORKER Associated Order(s): Airway Airway Patient location: OR [...] of attempts: 1 Ventilation between attempts: none RWORKER * Anesthesia Preprocedure Evaluation - Matthew [place] MD - 05/02/2022 9:30 AM CST Images from the original note were not included. [facility] for Preoperative Assessment and Planning Preoperative Evaluation Record Evaluation type/location: TPAP from [facility] Planned procedure site: [facility] OR Date: 05/02/22 NOTE: This note [...] DC ; CABG ; valvular heart disease; atrial [...] via telephone and in writing sent via [employer] mail. Patient verbalized understanding of preoperative plan. TPAP Complete Preoperative evaluation performed by Zelda Johnson NP on 05/02/22 at 9:34 AM. Patient Active Problem List Diagnosis ??? 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 Headache ??? detention use of drug ??? DDD (degenerative disc [...] OTHER MEDICAL hemorroids; Comments: Had done at [facility] in [place] ??? HX OTHER MEDICAL bladder infection ??? [...] LITHOTRIPSY 5 or 6 times s - 2834-8596 ??? ORCHIECTOMY Right 1970's ??? OTHER SURGICAL [...] (PEPCID) 40 mg tablet 04/30/2022 03/28/20 -- mEmie Reynoso MD finasteride (PROSCAR) 5 mg tablet [...] Medication protocol when under care of a LOST AND FOUND CLERK Planned anesthesia: General Informed Consent: Anesthesia plan and risks discussed with patient. Consent and Attending signature: I and/or my designee have discussed the anesthesia plan, benefits, possible alternatives, parental presence at time of induction (if indicated), and clinically relevant risks that may include dental injury, unintentional awareness, and/or other complications. The patient and/or parent/legal guardian understand, and agree to proceed. All questions answered. RWORKER RWORKER documented in this encounter Plan of Treatment [...] Procedure Name Priority Date/Time Associated Diagnosis Comments GA AN PROCEDURE PLACEHOLDER Routine 05/07/2022 8:51 AM FLOORWORKER GA AN ELECTIVE ENDOTRACHEAL AIRWAY Routine 05/07/2022 8:51 AM FLOORWORKER documented in this encounter Results * GA AN ELECTIVE ENDOTRACHEAL AIRWAY, GA AN PROCEDURE PLACEHOLDER (05/07/2022 8:51 AM FLOORWORKER) Narrative Leticia Gresham CRNA - 05/07/2022 8:51 AM FLOORWORKER Leticia Gresham CRNA ? 05/07/2022 ??8:52 AM [...] 0825, Anesthesia Intra-op Given 05/07/2022 8:25 AM FLOORWORKER 8 mg fentaNYL (SUBLIMAZE) preservative free injection intravenous, As needed, Starting on Sat05/07/22 at 0825, Anesthesia Intra-op Given 05/07/2022 8:25 AM FLOORWORKER 100 mcg Lactated Ringer's (LR) infusion 30 mL/hr, intravenous, Continuous, Starting on Sat05/07/22 at 0800, For 4 hours, Pre-Op, Use a 500 ml bag for End Stage Renal Disease Patients. Discontinue if fluid still running once patient arrives to floor. New Bag 05/07/2022 9:02 AM FLOORWORKER Rate/Dose Verify 05/07/2022 8:16 AM FLOORWORKER 30 mL/h r New Bag 05/07/2022 7:45 AM FLOORWORKER 30 mL/hr 30 mL/hr lidocaine PF (XYLOCAINE) 10 mg/mL (1 %) preservative free injection intravenous, As needed, Starting on Sat05/07/22 at 0825, Anesthesia Intra-op Given 05/07/2022 8:25 AM FLOORWORKER 50 mg ondansetron (ZOFRAN) injection intravenous, Administer over 2 Minutes, As needed, Starting on Sat05/07/22 at 0923, Anesthesia Intra-op Given 05/07/2022 9:23 AM FLOORWORKER 4 mg propofoL (DIPRIVAN) 10 mg/mL IV intravenous, As needed, Starting on Sat05/07/22 at 0825, Anesthesia Intra-op Given 05/07/2022 8:51 AM FLOORWORKER 50 mg Given 05/07/2022 8:42 AM FLOORWORKER 50 mg Given 05/07/2022 8:25 AM FLOORWORKER 150 mg rocuronium (ZEMURON) injection intravenous, As needed, Starting on Sat05/07/22 at 0825, Anesthesia Intra-op Given 05/07/2022 8:25 AM FLOORWORKER 30 mg sugammadex (BRIDION) 100 mg/mL intravenous solution intravenous, As needed, Starting on Sat05/07/22 at 0923, Anesthesia Intra-op Given 05/07/2022 9:23 AM FLOORWORKER 200 mg documented in this encounter Care Teams Specialist Managers Relationship Specialty [place] [address] [address] Rheumatology 02/21/17 Lashay Downs, GAY Registered Nurse Pain Management 06/17/17 Duke Do, GAY Registered Nurse 09/09/17 Ngozi Petty MD Radiation Oncologist Radiation Oncology 02/05/19 Jose Roberto Marx MD Referring Physician Otolaryngology 02/05/19 documented as of this encounter
--- OUTSIDE RECORDS SUMMARY | 2024-06-14 23:26 | XMS_ITS | Encounter Summary ---
Author Organization [facility] Address [address] [place] [address] Phone Care Team Providers Care Rn Care Manager Name Role Phone Criss Blanco MD Unavailable Lashay Downs RN Unavailable Unavailab Duke Goodwin RN Unavailable UnavailNgozi Husain MD Unavailable Jose Roberto Marx MD Unavailable [phone] Encounter Details Date Type Department Care Team (Late st Contact Info) Description 05/01/2022 Orders Only [facility] Otolaryngology [address] [facility] Medical Office Building [address] [place] [address] Nakita Herrera MD [address] [place] [address] Dysplasia of larynx (Primary Dx) [...] on file Legal Sex Male 12:56 AM TRAINING INSTRUCTOR Gender Identity Not on file Sexual Orientation [...] invasive, radiation may be necessary for him. NING INSTRUCTOR documented in this encounter Plan of Treatment [...] on stairs Contact your local community or [facility] for information on exercise, fall prevention programs, or options for improving home safety. documented as of this encounter Visit Diagnoses Diagnosis Dysplasia of larynx- Primary documented in this encounter Orders Case Request Count Last Ordered Date First Orde red Date CASE REQUEST OPERATING ROOM 1 05/01/2022 documented in this encounter Care Teams Rn Care Manager Relationship Specialty [place] [address] [facility] [address] [place] [address] Rheumatology 02/21/17 Lashay Downs, RN Registered Nurse Pain Management 06/17/17 Duke Do, RN Registered Nurse 09/09/17 Ngozi Petty MD Radiation Oncologist Radiation Oncology 02/05/19 Jose Roberto Marx MD Referring Physician Otolaryngology 02/05/19 documented as of this encounter
--- OUTSIDE RECORDS SUMMARY | 2024-06-14 23:27 | XMS_ITS | Encounter Summary ---
Author Organization [facility] Healthcare Address [address] [place] [address] Care Team Providers Care Bolter Helper Name Role Phone Criss Blanco MD Unavailable Lashay Downs RN Unavailable Unavailab Duke Goodwin RN Unavailable UnavailNgozi Husain MD Unavailable [phone] Jose Roberto Marx MD Unavailable [phone] Reason for Referral * Diagnostic Imaging (Routine) - Closed Specialty Diagnoses / Procedures Referred By Contac t Referred To Contact Diagnoses Pain Procedures XR Hand Right 3 or More Views Alissa Fuentes MD Phone: tel: fax: [facility] [place] [address] [place] [address] Referral ID Status Reason Start Date Expiration Date Visits Re quested Visits Authorized [id number] Closed 08/09/2021 09/08/2022 1 1 EYOR MINE Reason for Visit * Diagnostic Imaging (Routine) - Closed Specialty Diagnoses / Procedures Referred By Contac t Referred To Contact Diagnoses Pain Procedures XR Hand Right 3 or More Views Alissa Fuentes MD Phone: tel: fax: [place] [address] [place] [address] Referral ID Status Reason Start Date Expiration Date Visits Re quested Visits Authorized [id number] Closed 08/09/2021 09/08/2022 1 1 Encounter Details Date Type Department Care Team (Latest Contact Info) Description 08/09/2021 1:39 PM SURVEYOR MINE Hospital Encounter [facility] - Imaging [address] [place] [id number] Pain Discharge Disposition: Discharge to home or [...] on file Legal Sex Male 12:56 AM SURVEYOR MINE Gender Identity Not on file Sexual Orientation [...] on stairs Contact your local community or [facility] for information on exercise, fall prevention programs, or options for improving home safety. documented as of this encounter Procedures Procedure Name Priority Date/Time Associated Diagnosis Comments XR HAND RIGHT 3 OR MORE VIEWS Schedule Routine, Read Routine (OP Routine) 08/09/2021 1:58 PM SURVEYOR MINE Pain documented in this encounter Results * XR Hand Right 3 or More Views (08/09/2021 1:58 PM SURVEYOR MINE) Anatomical Region Laterality Modality Upper Extremities, Hand Right Computed Radiography 08/09/2021 2:13 PM SURVEYOR MINE Impressions 08/09/2021 2:13 PM SURVEYOR MINE 1. ??Healed/nearly healed right scaphoid waist fracture with a slightly sclerotic appearance of the proximal scaphoid. ??If there is clinical concern for osteonecrosis, MRI is recommended. 2. ??Slight left scapholunate interval widening which can be seen with scapholunate ligament insufficiency. 3. 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 Electronically signed by: José Miguel Christianson M.D. Narrative 08/09/2021 2:13 PM SURVEYOR MINE EXAMINATION: XR HAND RIGHT 3 OR MORE [...] pain documented in this encounter Care Teams Bolter Helper Relationship Specialty [place] [address] [facility] [address] [place] [address] Rheumatology 02/21/17 Lashay Downs, RN Registered Nurse Pain Management 06/17/17 Duke Do, RN Registered Nurse 09/09/17 Ngozi Petty MD Radiation Oncologist Radiation Oncology 02/05/19 Jose Roberto Marx MD Referring Physician Otolaryngology 02/05/19 documented as of this encounter
--- OUTSIDE RECORDS SUMMARY | 2024-06-14 23:27 | XMS_ITS | Encounter Summary ---
Author Organization [facility] Address [address] [place] [address] Phone Care Team Providers Care Technician Telecommunication Systems Name Role Phone Criss Blanco MD Unavailable Lashay Downs RN Unavailable Unavailab Duke Goodwin RN Unavailable UnavailNgozi Husain MD Unavailable [phone] Jose Roberto Marx MD Unavailable [phone] Reason for Visit * Reason Comments Cancer * Consultation (Routine) - Closed Specialty Diagnoses / Procedures Referred By Alcira forrest Referred To Contact Otolaryngology Diagnoses Dysphonia Viraj Romeo, ZOILA [address] [place] [address] Phone: tel: fax: [facility] (All Locations) Referral ID Status Reason Start Date Expiration Date V isits Requested Visits Authorized [id number] Closed Specialty Services Required 06/23/2020 12/20/2020 99 99 Encounter Details Date Type Department Care Team (Late st Contact Info) Description 10/27/2020 9:40 AM CDT Office Visit - [facility] ENT [address] 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 Nathanael Valdez MD, FACS Beauty Shop Manager [facility] Division of Laryngology Department of Otolaryngology--Head & Neck Surgery Portions of this note were dictated using M*Modal Fluency Direct. Group Marketing Vp variances may occur. documented in this encounter [...] Dysphonia documented in this encounter Care Teams Technician Telecommunication Systems Relationship Specialty [place] [address] [address] Rheumatology 02/21/17 Lashay Downs, GAY Registered Nurse Pain Management 06/17/17 Duke Do, RN Registered Nurse 09/09/17 Ngozi Petty MD Radiation Oncologist Radiation Oncology 02/05/19 Jose Roberto Marx MD Referring Physician Otolaryngology 02/05/19 documented as of this encounter
--- OUTSIDE RECORDS SUMMARY | 2024-06-14 23:27 | XMS_ITS | Encounter Summary ---
Author Organization [facility] Address [address] [place] [address] Phone Care Team Providers Care Station Helper Name Role Phone Criss Blanco MD Unavailable Lashay Downs RN Unavailable Unavailab Duke Goodwin RN Unavailable UnavailNgozi Husain MD Unavailable [phone] Jose Roberto Marx MD Unavailable [phone] Reason for Visit * Reason Comments Dysphonia * Consultation (Routine) - Closed Specialty Diagnoses / Procedures Referred By Alcira forrest Referred To Contact Otolaryngology Diagnoses Dysphonia Viraj Romeo, ZOILA [address] [place] [address] Phone: tel: fax: [facility] (All Locations) Referral ID Status Reason Start Date Expiration Date V isits Requested Visits Authorized [id number] Closed Specialty Services Required 06/23/2020 12/20/2020 99 99 Encounter Details Date Type Department Care Team (Late st Contact Info) Description 12/20/2020 9:20 AM CDT Office Visit [facility] ENT [address] [facility] Medical Office Building [address] [place] [phone] Nathanael Valdez MD [address] [place] [address] 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 He [...] weeks (around 02/14/2021). Nathanael Valdez MD, FACS Shirt Hemmer [facility] Division of Laryngology Department of Otolaryngology--Head & Neck Surgery Portions of this note were dictated using M*Modal Fluency Direct. Chain Builder Loom Control variances may occur. documented in this encounter [...] 05/01/2022 added in this encounter Care Teams Station Helper Relationship Specialty [place] [address] [facility] [address] [place] [address] Rheumatology 02/21/17 Lashay Downs, RN Registered Nurse Pain Management 06/17/17 Duke Do, RN Registered Nurse 09/09/17 Ngozi Petty MD Radiation Oncologist Radiation Oncology 02/05/19 Jose Roberto Marx MD Referring Physician Otolaryngology 02/05/19 documented as of this encounter
--- OUTSIDE RECORDS SUMMARY | 2024-06-14 23:27 | XMS_ITS | Encounter Summary ---
Author Organization [facility] Healthcare Address [address] [place] [address] Care Team Providers Care Mechanical Test Technician Name Role Phone Criss Blanco MD Unavailable Lashay Downs RN Unavailable Unavailab Duke Goodwin RN Unavailable UnavailNgozi Husain MD Unavailable [phone] Jose Roberto Marx MD Unavailable [phone] Encounter Details Date Type Department Care Team (Late st Contact Info) Description 10/13/2020 12:30 PM CDT - 10/13/2020 2:25 PM CDT Surgery [facility] Operating Room [address] [place] [address] Nathanael Valdez MD [address] [place] [address] LASER KTP Surgery Details Date/Time Status Location OR Service Patient Class Case Class Case Type Trauma Case? 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 He is doing well and has no new issues. He denies dysphagia, odynophagia, referred otalgia, or hemoptysis. 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 Plan to proceed to the OR for biopsy and laser treatment of the new right TVC lesions. No orders of the defined types were placed in this encounter. Disposition: No follow-ups on file. Nathanael Valdez MD, FACS [facility]ed [facility] Voice [facility] Airway Center Division of Laryngology Department of Otolaryngology--Head & Neck Surgery Portions of this note were dictated using M*Modal Fluency Direct. Bundle Helper variances may occur. I have seen and [...] patient's upper and lower dentition and the Pegg'do Excalibur laryngoscope was inserted in the usual [...] procedure * Pre-Procedure Instructions - Kavya CarsonAshanti, BIOMEDICAL TECHNICIAN - 10/06/2020 8:58 AM CDT [facility] Preoperative Assessment and Planning CPAP Clinic Location: [facility] The night before your surgery: [...] Planning Perioperative Nursing Note Telephone Preoperative Evaluation ([facility]) - TELEPHONE ONLY, NO PHYSICAL EXAM [...] Alone Support Systems: Family members Assistance Needed: Claim Investigator and helper: Brother Raimundo Patient expects to [...] in a congregate living facility (ex. assisted living/long term facility, half-way, snf)?: No Have you tested positive for COVID-19 [...] 20 seconds. Use an alcohol- based hand assembler deck and hull that contains at least 60% alcohol if [...] insurance card, a photo ID (like a Claim Investigator's license) and a method of payment for [...] or department store or come by our [facility] clinic and we will give it to [...] COVID Test Request Placed in Epic to [facility]. Test to be performed on 10/10 at [facility], [place], [place] [address], M-F 8a-7:30p, Sat/Sun 8a-7:30p. HOLIDAY hours may vary. If you have COVID testing or should have COVID testing for your surgery/procedure, please read below section: If you need to reschedule your COVID test to a different location or if your surgery gets rescheduled, you MUST call [phone] Saturday-Saturday 8am-4:30pm to get your COVID testing rescheduled or your lab order will not be available at Testing Sites. COVID Testing is only valid for up to 96 hours prior to surgery date, unless otherwise specified. If you are unable to reach staff at the above phone number, please call the CPAP Staff at [phone]. This number cannot order a lab test, [...] 20 seconds. Use an alcohol- based hand assembler deck and hull that contains at least 60% alcohol if soap and water are not available. All patients should read below section: All visitors/patients are being asked to wear a clean mask when entering the hospital. COVID 19 Updates & Visitor Policy: Please access [email or web address] for the most updated information. Information on [facility]: Please view [email or web address] (Patient & Visitor Information) for additional details regarding Advanced Directive forms, AWARE, directions, parking information, lodging, Internet access, dining and more. Information on [facility]: Please view [email or web address] (Patient and Visitor Information) for parking/directions and more. For MyChart information, to activate account or password recovery, please go to [email or web address] or call [phone] (toll-free: [phone]). Surgery Times: For patients having surgery @ [facility] or [facility], if your surgeon's office has not notified you of your surgery time by NOON THE BUSINESS DAY BEFORE your surgery, please call [phone] and ask for your surgeon'soffice Dr Nathanael [...] on stairs Contact your local community or [facility] for information on exercise, fall [...] biopsy) 10/13/2020 1:09 PM CDT Narrative PATHOLOGY [facility] - 10/18/2020 10:07 AM CDT EPIC results best viewed via link to PDF [facility] Surgical Path[place] [address] [place] [address] SURGICAL PATHOLOGY REPORT FINAL Patient Name: ?? PASQUALE SANCHEZ Gender: ??M : ??1945 (Age: 75) Address: ??[address] [place] [address] Hospital #: ??[id number] Taken:10/13/2020 Received:10/13/2020 Reported: 10/18/2020 Patient Type: [facility] ?? Service: Surgery Location: [facility] Physician(s): ??Nathanael Valdez M.D. ZOILA Kuo [...] No evidence of dysplasia or malignancy ?? [facility]/10/17/2020 10:09 By this signature, I attest that [...] of massey tissue. ??Labeled F1. ??[facility] 0. [facility]14[facility]2020 10:29 PA(s): Iris Cobos MS, PA ([facility] By this signature, I attest that the above diagnosis is based upon my personal examination of the slides(and/or other material). Addenda/Procedures The performance characteristics of some immunohistochemical stains, fluorescence in-situ hybridization tests and immunophenotyping by flow cytometry cited in this report (if any) were determined by the Surgical Pathology Department at [facility] as part of an ongoing data quality consultant program and in compliance with federally mandated [...] determined by the Surgical Pathology Department of [facility]. ??It has not been cleared or approved by the U. S. Food and Drug Administration. IMAGES AND SCANNED DOCUMENTS, IF INCLUDED, ONLY VIEWABLE IN PDF VERSION OF REPORT Nathanael Valdez MD LAB PATHOLOGY ORDERABLES Final Result PATHOLOGY [facility] 3rd Floor [place], [place] [phone] documented in this encounter Visit Diagnoses Diagnosis [...] 10/13/2020 documented in this encounter Care Teams Mechanical Test Technician Relationship Specialty [place] [address] [facility] [address] [place] [address] Rheumatology 02/21/17 Lashay Downs, RN Registered Nurse Pain Management 06/17/17 Duke Do, RN Registered Nurse 09/09/17 Ngozi Petty MD Radiation Oncologist Radiation Oncology 02/05/19 Jose Roberto Marx MD Referring Physician Otolaryngology 02/05/19 documented as of this encounter
--- OUTSIDE RECORDS SUMMARY | 2024-06-14 23:27 | XMS_ITS | Encounter Summary ---
Author Organization [facility] Address [address] [place] [address] Phone Care Team Providers Care Scheduling Coordinator Name Role Phone Criss Blanco MD Unavailable Lashay Downs RN Unavailable Unavailab Duke Goodwin RN Unavailable UnavailNogzi Husain MD Unavailable [phone] Jose Roberto Marx MD Unavailable [phone] Reason for Referral * Consultation (Routine) - Closed Specialty Diagnoses / Procedures Referred By Conthermila t Referred To Contact Otolaryngology Diagnoses 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) Viraj Romeo PA [address] [place] [address] Phone: tel: fax: [facility] (All Locations) Referral ID Status Reason Start Date Expiration Date V isits Requested Visits Authorized [id number] Closed Specialty Services Required 04/05/2021 06/16/2021 4 4 Question Answer Please select the performing region: [facility] (All Locations) [167] # of visits: 1 Reason for Visit * Reason Comments vocal cord check * Consultation (Routine) - Closed Specialty Diagnoses / Procedures Referred By Contac t Referred To Contact Otolaryngology Diagnoses 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) Viraj Romeo PA [address] [place] [address] Phone: tel: fax: [facility] (All Locations) Referral ID Status Reason Start Date Expiration Date V isits Requested Visits Authorized [id number] Closed Specialty Services Required 04/05/2021 06/16/2021 4 4 Encounter Details Date Type Department Care Team (Late st Contact Info) Description 04/18/2021 10:20 AM DUST COLLECTOR 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 He [...] History Squamous cell carcinoma of larynx (CMS/HCC) ([facility]) 01/30/2019 Initial Diagnosis Squamous cell carcinoma of [...] follow-ups on file. Nathanael Valdez MD, FACS Casino Banker [facility] Division of Laryngology Department of Otolaryngology--Head & Neck Surgery Portions of this note were dictated using M*Modal Fluency Direct. Director Of Search Engine Marketing variances may occur. I have seen and examined the patient. I agree with the findings and plan of care as documented in the resident/fellow's note. 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 However he does report significant unintentional weight loss. Recommend colonoscopy and urgent follow-up with PCP for further workup of this. Follow-up in 4 months or sooner if concerns. COLLECTOR OPERATOR documented in this encounter Plan of [...] Dysphonia documented in this encounter Care Teams Scheduling Coordinator Relationship Specialty [place] [address] [facility] [address] [place] [address] Rheumatology 02/21/17 Lashay Downs, GAY Registered Nurse Pain Management 06/17/17 Duke Do, RN Registered Nurse 09/09/17 Ngozi Petty MD Radiation Oncologist Radiation Oncology 02/05/19 Jose Roberto Marx MD Referring Physician Otolaryngology 02/05/19 documented as of this encounter
--- OUTSIDE RECORDS SUMMARY | 2024-06-14 23:27 | XMS_ITS | Encounter Summary ---
Author Organization [facility] Healthcare Address [address] [place] [address] Care Team Providers Care Liability Claims Adjuster Name Role Phone Criss Blanco MD Unavailable Lashay Downs RN Unavailable Unavailab Duke Goodwin RN Unavailable UnavailNgozi Husain MD Unavailable [phone] Jose Roberto Marx MD Unavailable [phone] Reason for Referral * Consultation (Routine) - Closed Specialty Diagnoses / Procedures Referred By Contac t Referred To Contact Pain Management Diagnoses Vertebrogenic low back pain Ezequiel Shelton MD [address] [place] [address] [address]AK[address] [place] [address] Phone: tel: fax: [address] [address] Referral ID Status Reason Start Date Expiration Date V isits Requested Visits Authorized [id number] Closed Specialty Services Required 03/30/2022 09/26/2022 99 99 Question Answer Please select the performing region: [facility] [144] # of visits: 99 Reason for Visit * Reason Comments Follow-up Pain * Consultation (Routine) - Closed Specialty Diagnoses / Procedures Referred By Contac t Referred To Contact Pain Management Diagnoses Vertebrogenic low back pain Ezequiel Shelton MD [address] [facility] [address] [place] [address] Phone: tel: fax: [facility] [address] [place] [address] Referral ID Status Reason Start Date Expiration Date V isits Requested Visits Authorized [id number] Closed Specialty Services Required 03/30/2022 09/26/2022 99 99 Encounter Details Date Type Department Care Team (Latest Contact Info) Description 04/06/2022 1:26 PM CDT - 04/06/2022 11:59 PM CDT Hospital Encounter [facility] Clinic [address] [facility] 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 * Opioid Pain Management (Boat And Plant Utility Supervisor) (Luxembourgish) documented in this encounter Medications at Time [...] Ezequiel Shelton MD. He returns to the [facility] with a report of [...] Comments: Had done at outpatiet clinic in [place] HX OTHER MEDICAL bladder infection HX OTHER [...] photoablation Right vocal fold lesion LITHOTRIPSY - [id number] 5 or 6 times ORCHIECTOMY Right OTHER [...] facet arthropathy. Review of Data: Checked the [employer] RAFTER CUTTING MACHINE OPERATOR sheet and it was consistent with our meds. UDT results: A sample was not obtained The patient was not given a prescription for intranasal Narcan for the management of opioid inducedrespiratory depression or excess sedation. I reviewed the [employer] Prescription Monitoring Program printout and it was [...] above-mentioned plan, agrees and will notify the [facility] with report of benefit [...] Referral Reason: Specialty Services Required Referral Location: [facility] Requested Specialty: Pain Management Number of [...] stairs Contact your local community or [facility] for information on exercise, fall [...] documented as of this encounter Care Teams Liability Claims Adjuster Relationship Specialty [place] [address] [facility] [address] [place] [address] Rheumatology 02/21/17 Lashay Downs, RN Registered Nurse Pain Management 06/17/17 Duke Do, RN Registered Nurse 09/09/17 Ngozi Petty MD Radiation Oncologist Radiation Oncology 02/05/19 Jose Roberto Marx MD Referring Physician Otolaryngology 02/05/19 documented as of this encounter
--- OUTSIDE RECORDS SUMMARY | 2024-06-14 23:27 | XMS_ITS | Encounter Summary ---
Author Organization [facility] Address [address] [place] [address] Phone Care Team Providers Care Staking Technician Name Role Phone Criss Blanco MD Unavailable Lashay Downs RN Unavailable Unavailab Duke Goodwin RN Unavailable UnavailNgozi Husain MD Unavailable [phone] Jose Roberto Marx MD Unavailable [phone] Reason for Visit * Reason Comments Squamous Cell Carcinoma * Consultation (Routine) - Closed Specialty Diagnoses / Procedures Referred By Alcira forrest Referred To Contact Otolaryngology Diagnoses 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 Medical Office Building [address] [place] [address] Nathanael Valdez MD [address] [facility] [place] [address] Squamous cell carcinoma of larynx (CMS/HCC) (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) 01/30/2019 Initial Diagnosis Squamous cell carcinoma [...] follow-ups on file. Nathanael Valdez MD, FACS Director [employer] [facility] Voice & Airway Center Division of Laryngology Department of Otolaryngology--Head & Neck Surgery Portions of this note were dictated using M*Modal Fluency Direct. Computer Mechanic variances may occur. documented in this encounter [...] on stairs Contact your local community or [facility] for information on exercise, fall prevention programs, or options for improving home safety. 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) Malignant neoplasm of larynx, unspecified site Dysphonia documented in this encounter Orders Outpatient Referral Count Last Ordered Date st Ordered Date AMB REFERRAL TO ENT 1 09/01/2021 documented in this encounter Care Teams Staking Technician Relationship Specialty [place] [address] [facility] [address] [place] [address] Rheumatology 02/21/17 Lashay Downs, GAY Registered Nurse Pain Management 06/17/17 Duke Do, GAY Registered Nurse 09/09/17 Ngozi Petty MD Radiation Oncologist Radiation Oncology 02/05/19 Jose Roberto Marx MD Referring Physician Otolaryngology 02/05/19 documented as of this encounter
--- OUTSIDE RECORDS SUMMARY | 2024-06-14 23:27 | XMS_ITS | Encounter Summary ---
Author Organization [facility] Address [address] [place] [address] Phone Care Team Providers Care Char Filter Operator Helper Name Role Phone Criss Blanco MD Unavailable Lashay Downs RN Unavailable Unavailab Duke Goodwin RN Unavailable UnavailNgozi Husain MD Unavailable [phone] Jose Roberto Marx MD Unavailable [phone] Reason for Referral * Consultation (Routine) - Closed Specialty Diagnoses / Procedures Referred By Conthremila t Referred To Contact Otolaryngology Diagnoses 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) Viraj Romeo PA [address] [place] [address] Phone: tel: fax: [facility] (All Locations) Referral ID Status Reason Start Date Expiration Date V isits Requested Visits Authorized [id number] Closed Specialty Services Required 02/09/2021 03/18/2021 6 6 Question Answer Please select the performing region: [facility] (All Locations) [167] # of visits: 1 Reason for Visit * Reason Comments Follow-up * Consultation (Routine) - Closed Specialty Diagnoses / Procedures Referred By Contac t Referred To Contact Otolaryngology Diagnoses 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) Viraj Romeo PA [address] [place] [address] Phone: tel: fax: [facility] (All Locations) Referral ID Status Reason Start Date Expiration Date V isits Requested Visits Authorized [id number] Closed Specialty Services Required 02/09/2021 03/18/2021 6 6 Encounter Details Date Type Department Care Team (Late st Contact Info) Description 02/21/2021 10:20 AM CDT Office Visit [facility] ENT [address] [facility] Medical Office Building [address] [place] [address] Nathanael Valdez MD [address] [place] [address] 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) [...] file Legal Sex Male 12:56 AM OPERATIONS ASST Gender Identity Not on file Sexual [...] who presents today for follow-up of his [id number] squamous cell carcinoma of the glottis. He is doing well and has no new issues. He denies dysphagia, odynophagia, referred otalgia, or hemoptysis. Oncology History Squamous cell carcinoma of larynx (CMS/HCC) ([facility]) 01/30/2019 Initial Diagnosis Squamous cell carcinoma of [...] weeks (around 04/18/2021). Nathanael Valdez MD, FACS Process Control Supervisor [facility] Voice & Airway Center Division of Laryngology Department of Otolaryngology--Head & Neck Surgery Portions of this note were dictated using M*Modal Fluency Direct. Craps Dealer variances may occur. documented in this encounter [...] Dysphonia documented in this encounter Care Teams Char Filter Operator Helper Relationship Specialty [place] [address] [facility] [address] [place] [address] Rheumatology 02/21/17 Lashay Downs, RN Registered Nurse Pain Management 06/17/17 Duke Do, RN Registered Nurse 09/09/17 Ngozi Petty MD Radiation Oncologist Radiation Oncology 02/05/19 Jose Roberto Marx MD Referring Physician Otolaryngology 02/05/19 documented as of this encounter
--- OUTSIDE RECORDS SUMMARY | 2024-06-14 23:27 | XMS_ITS | Encounter Summary ---
Author Organization [facility] Healthcare Address [address] [place] [address] Care Team Providers Care Firearms Assembly Supervisor Name Role Phone Criss Blanco MD Unavailable Lashay Downs RN Unavailable Unavailab Duke Goodwin RN Unavailable UnavailNgozi Husain MD Unavailable [phone] Jose Roberto Marx MD Unavailable [phone] Reason for Referral * Diagnostic Imaging (Routine) - Closed Specialty Diagnoses / Procedures Referred By Contac t Referred To Contact Diagnoses Pain Procedures XR Wrist Right 3 or More Views Alissa Fuentes MD Phone: tel: fax: [facility] [address] [place] [address] Referral ID Status Reason Start Date Expiration Date Visits Re quested Visits Authorized [id number] Closed 02/09/2021 03/11/2022 1 1 Reason for Visit * Diagnostic Imaging (Routine) - Closed Specialty Diagnoses / Procedures Referred By Contac t Referred To Contact Diagnoses Pain Procedures XR Wrist Right 3 or More Views Alissa Fuentes MD Phone: tel: fax: [facility] [address] [place] [address] Referral ID Status Reason Start Date Expiration Date Visits Re quested Visits Authorized [id number] Closed 02/09/2021 03/11/2022 1 1 Encounter Details Date Type Department Care Team (Latest Contact Info) Description 02/09/2021 11:38 AM CDT - 02/09/2021 11:59 PM CDT Hospital Encounter [facility] [address] [place] [address] Pain Discharge Disposition: Discharge to [...] file Legal 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
--- OUTSIDE RECORDS SUMMARY | 2024-06-14 23:27 | XMS_ITS | Encounter Summary ---
Author Organization [facility] Healthcare Address [address] [place] [address] Care Team Providers Care Quality Improvement Specialist Name Role Phone Criss Blanco MD Unavailable Lashay Downs RN Unavailable Unavailab Duke Goodwin RN Unavailable UnavailNgozi Husain MD Unavailable [phone] Jose Roberto Marx MD Unavailable [phone] Reason for Visit * Reason Comments Initial Consult Back Pain Encounter Details Date Type Department Care Team (Latest Contact Info) Description 12/05/2021 2:19 PM CDT - 12/05/2021 11:59 PM CDT Hospital Encounter [facility] [address] [place] [address], [facility] [address] [place] [address] Ezequiel Shelton MD [address] [place] [address] [address] [place] [address] Chronic bilateral low back pain without sciatica [...] on file Legal 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 * Meloxicam (By mouth) (Nepali) documented in this encounter Medications at Time [...] OTHER MEDICAL hemorroids; Comments: Had done at [facility] in [place] ??? HX OTHER MEDICAL bladder infection ??? [...] vocal fold lesion ??? LITHOTRIPSY s - [id number] 5 or 6 times ??? ORCHIECTOMY Right [...] facet arthropathy. Review of Data: Checked the [facility] EEG TECHNICIAN sheet and it was consistent with our meds. UDT results: A sample was not obtained The patient was not given a prescription for intranasal Narcan for the management of opioid inducedrespiratory depression or excess sedation. I reviewed the [place] Prescription Monitoring Program printout and it was [...] on stairs Contact your local community or [facility] for information on exercise, fall prevention programs, or options for improving home safety. documented as of this encounter Visit Diagnoses Diagnosis Chronic bilateral low back pain without sciatica- Primary DDD (degenerative disc disease), lumbar Degeneration of lumbar or lumbosacral intervertebral disc Lumbar facet arthropathy Spondylosis of unspecified site without mention of myelopathy documented in this encounter Care Teams Quality Improvement Specialist Relationship Specialty [place] [address] [facility] [address] [place] [address] Rheumatology 02/21/17 Lashay Downs, GAY Registered Nurse Pain Management 06/17/17 Duke Do, RN Registered Nurse 09/09/17 Ngozi Petty MD Radiation Oncologist Radiation Oncology 02/05/19 Jose Roberto Marx MD Referring Physician Otolaryngology 02/05/19 documented as of this encounter
--- OUTSIDE RECORDS SUMMARY | 2024-06-14 23:27 | XMS_ITS | Encounter Summary ---
Author Organization [facility] Address [address] [facility] [address] [place] [address] Care Team Providers Care Tube Bender Hand Name Role Phone Criss Blanco MD Unavailable Lashay Downs RN Unavailable Unavailab Duke Goodwin RN Unavailable UnavailNgozi Husain MD Unavailable [phone] Jose Roberto Marx MD Unavailable [phone] Encounter Details Date Type Department Care Team (Late st Contact Info) Description 08/03/2021 11:30 AM LABORER DRYING DEPARTMENT Office Visit [facility] [address] 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 Not on file Not on natalie e documented as of this encounter Last Filed Vital Signs Vital Sign Reading Time Taken Comments Blood Pressure 121/80 08/03/2021 11:19 AM LABORER DRYING DEPARTMENT Pulse 82 08/03/2021 11:19 AM LABORER DRYING DEPARTMENT Temperature - - Respiratory Rate - - Oxygen Saturation - - Inhaled Oxygen Concentration - - Weight 97.3 kg (214 lb 9.6 oz) 08/03/2021 11:19 AM LABORER DRYING DEPARTMENT Height 185.4 cm (6' 1 ) 08/03/2021 11:19 AM LABORER DRYING DEPARTMENT Body Mass Index 28.31 08/03/2021 11:19 AM LABORER DRYING DEPARTMENT documented in this encounter Ordered Prescriptions Prescription [...] Nephrolithiasis ??? 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 Depression ??? Gastric reflux ??? [...] OTHER MEDICAL hemorroids; Comments: Had done at [facility] in [place] ??? HX OTHER MEDICAL bladder infection ??? HX OTHER MEDICAL kidney stone ??? Low back pain ??? Malignant neoplasm of prostate (CMS/HCC) ([facility]) 1998 prostate ??? Migraine ??? Rheumatoid arthritis ([facility]) Allergies Allergen Reactions ??? Perfume Swelling, [...] Not on file Occupational History ??? Occupation: [employer] Tobacco Use ??? Smoking status: Former Smoker [...] 3 months (around 11/03/2021) for with Marlene. RER DRYING DEPARTMENT documented in this encounter Plan of Treatment [...] stairs Contact your local community or [facility] for information on exercise, fall prevention programs, or options for improving home safety. documented as of this encounter Visit Diagnoses Diagnosis Chronic migraine without aura without status migrainosus, not intractable- Primary documented in this encounter Care Teams Tube Bender Hand Relationship Specialty [place] [address] [facility] [address] [place] [address] Rheumatology 02/21/17 Lashay Downs, GAY Registered Nurse Pain Management 06/17/17 Duke Do, RN Registered Nurse 09/09/17 Ngozi Petty MD Radiation Oncologist Radiation Oncology 02/05/19 Jose Roberto Marx MD Referring Physician Otolaryngology 02/05/19 documented as of this encounter
--- OUTSIDE RECORDS SUMMARY | 2024-06-14 23:27 | XMS_ITS | Encounter Summary ---
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 Gender Identity Not on file Sexual [...] likelihood of falling Lifestyle No Svetlana Clay, GYA Note: Below are four things you can [...] on stairs Contact your local community or [facility] for information on exercise, fall prevention [...] on filedocumented in this encounter Care Teams Hand Braille Transcriber Relationship Specialty [place] [address] [facility] [address] [place] [address] Rheumatology 02/21/17 Lashay Downs, GAY Registered Nurse Pain Management 06/17/17 Duke Do, RN Registered Nurse 09/09/17 Ngozi Petty MD Radiation Oncologist Radiation Oncology 02/05/19 Jose Roberto Marx MD Referring Physician Otolaryngology 02/05/19 documented as of this encounter
--- OUTSIDE RECORDS SUMMARY | 2024-06-14 23:27 | XMS_ITS | Encounter Summary ---
Author Organization [facility] Address [address] [facility] [address] [place] [address] Care Team Providers Care Underground Miner Name Role Phone Criss Blanco MD Unavailable Lashay Downs RN Unavailable Unavailab Duke Goodwin RN Unavailable UnavailNgozi Husain MD Unavailable [phone] Jose Roberto Marx MD Unavailable [phone] Reason for Visit * Reason Comments COVID-19 EVALUATION Encounter Details Date Type Department Care Team (Latest Contact Info) Description 03/23/2021 11:45 AM CDT Clinical Support [facility] [address] [place] [address] Encounter for screening for COVID-19 (Primary [...] on file Legal 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 documented as of this encounter Procedures Procedure Name Priority Date/Time Associated Diagnosis Comments COVID-19 POC Routine 03/23/2021 11:39 AM CDT Encounter for screening for COVID-19 documented in this encounter Results * COVID-19 POC (03/23/2021 11:39 AM CDT) COVID-19 Ag POC (BD Veritor) Presumptive Negative Presumptive Negative, Invalid [facility] Nasal 03/23/2021 11:3 9 AM CDT Claire Loyd LINE MAINTENANCE SUPERVISOR POINT OF CARE TEST OR DERABLES Final Result [facility] [address] [place] [address] documented in this encounter Visit Diagnoses Diagnosis Encounter for screening for COVID-19- Primary documented in this encounter Care Teams Underground Miner Relationship Specialty [place] [address] [facility] [address] [place] [address] Rheumatology 02/21/17 Lashay Downs, RN Registered Nurse Pain Management 06/17/17 Duke Do, RN Registered Nurse 09/09/17 Ngozi Petty MD Radiation Oncologist Radiation Oncology 02/05/19 Jose Roberto Marx MD Referring Physician Otolaryngology 02/05/19 documented as of this encounter
--- OUTSIDE RECORDS SUMMARY | 2024-06-14 23:27 | XMS_ITS | Encounter Summary ---
Author Organization [facility] Healthcare Address [address] [place] [address] Care Team Providers Care Nursing Home Social Worker Name Role Phone Criss Blanco MD Unavailable Lashay Downs RN Unavailable Unavailab Duke Goodwin RN Unavailable UnavailNgozi Husain MD Unavailable [phone] Jose Roberto Marx MD Unavailable [phone] Reason for Referral * Diagnostic Imaging (Routine) - Closed Specialty Diagnoses / Procedures Referred By Contac t Referred To Contact Diagnoses Pain Procedures XR Hand Left 3 or More Views Alissa Fuentes MD Phone: tel: fax: [facility] [address] [place] [address] Referral ID Status Reason Start Date Expiration Date Visits Re quested Visits Authorized [id number] Closed 08/09/2021 09/08/2022 1 1 INSPECTOR AND SORTER Reason for Visit * Diagnostic Imaging (Routine) - Closed Specialty Diagnoses / Procedures Referred By Contac t Referred To Contact Diagnoses Pain Procedures XR Hand Left 3 or More Views Alissa Fuentes MD Phone: tel: fax: [facility] [address] [place] [address] Referral ID Status Reason Start Date Expiration Date Visits Re quested Visits Authorized [id number] Closed 08/09/2021 09/08/2022 1 1 Encounter Details Date Type Department Care Team (Latest Contact Info) Description 08/09/2021 1:40 PM HIDE INSPECTOR AND SORTER - 08/09/2021 11:59 PM HIDE INSPECTOR AND SORTER Hospital Encounter [facility] - Imaging [address] [place] [address] Pain Discharge Disposition: Discharge to [...] on file Legal Sex Male 12:56 AM HIDE INSPECTOR AND SORTER Gender Identity Not on file [...] Read Routine (OP Routine) 08/09/2021 2:02 PM HIDE INSPECTOR AND SORTER Pain documented in this encounter Results * XR Hand Left 3 or More Views (08/09/2021 2:02 PM HIDE INSPECTOR AND SORTER) Anatomical Region Laterality Modality Upper Extremities, Hand Left Computed Radiography 08/09/2021 2:13 PM HIDE INSPECTOR AND SORTER Impressions 08/09/2021 2:13 PM HIDE INSPECTOR AND SORTER 1. ??Healed/nearly healed right scaphoid waist fracture with a slightly sclerotic appearance of the proximal scaphoid. ??If there is clinical concern for osteonecrosis, MRI is recommended. 2. ??Slight left scapholunate interval widening which can be seen with scapholunate ligament insufficiency. 3. 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 Electronically signed by: José Miguel Christianson M.D. Narrative 08/09/2021 2:13 PM HIDE INSPECTOR AND SORTER EXAMINATION: XR HAND RIGHT 3 OR MORE [...] pain documented in this encounter Care Teams Nursing Home Social Worker Relationship Specialty [place] [address] [facility] [address] [place] [address] Rheumatology 02/21/17 Lashay Downs, RN Registered Nurse Pain Management 06/17/17 Duke Do, RN Registered Nurse 09/09/17 Ngozi Petty MD Radiation Oncologist Radiation Oncology 02/05/19 Jose Roberto Marx MD Referring Physician Otolaryngology 02/05/19 documented as of this encounter
--- OUTSIDE RECORDS SUMMARY | 2024-06-14 23:27 | XMS_ITS | Encounter Summary ---
Author Organization [facility] Healthcare Address [address] [place] [address] Care Team Providers Care Downstairs Maid Name Role Phone Criss Blanco MD Unavailable Lashay Downs RN Unavailable Unavailab Duke Goodwin RN Unavailable UnavailNgozi Husain MD Unavailable [phone] Jose Roberto Marx MD Unavailable [phone] Encounter Details Date Type Department Care Team (Late st Contact Info) Description 10/13/2020 12:10 PM CDT Anesthesia Event [facility] Operating Room [address] [place] [address] Alisa Wilson MD [address] [facility] [address] [place] [address] Kavya Carson NP [address] [facility] [phone] [place] [address] Anesthesia Record Procedure Summary Procedure Name Responsible [...] on file Legal 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 OR POD 5 ROOM 219 / [facility] OR POD 5 Anesthesia Start: 1210 Anesthesia [...] and Planning Preoperative Evaluation Record Evaluation type/location: [facility] Planned procedure site: [facility] (Pods 2/3/5/TAXATION INSPECTOR) Date: 10/06/20 NOTE: This note represents a [...] Cardiovascular Pertinent negatives: hypertension ; CAD ; SD ; CABG ; valvular heart disease; valve [...] testing to be performed on 10/10 @ [facility] will place the order for testing. Result to be reviewed by surgeon's office. . TPAP process complete. Preoperative evaluation performed by Kavya Carson NP on 10/06/20 at 09:06 AM. . Patient Active Problem List Diagnosis ??? 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 Headache ??? orange grower use of drug ??? Discogenic low back [...] OTHER MEDICAL hemorroids; Comments: Had done at [facility] in [place] ??? HX OTHER MEDICAL bladder infection ??? [...] vocal fold lesion ??? LITHOTRIPSY s - [id number] 5 or 6 times ??? ORCHIECTOMY Right [...] mg tablet Past Week 03/22/20 -- Emmie eRynoso MD Notes: One tablet at night, partial [...] Rate: 82 bpm RR Interval: 731 msec [place] Interval: 175 msec QRS Duration: 95 msec QT Interval: 384 msec QTC Interval: 422 msec P-R-T [place]: 68 - 3 - 68 degrees ?? [...] mg documented in this encounter Care Teams Downstairs Maid Relationship Specialty [place] [address] [address] Rheumatology 02/21/17 Lashay Downs, RN Registered Nurse Pain Management 06/17/17 Duke Do, GAY Registered Nurse 09/09/17 Ngozi Petty MD Radiation Oncologist Radiation Oncology 02/05/19 Jose Roberto Marx MD Referring Physician Otolaryngology 02/05/19 documented as of this encounter
--- OUTSIDE RECORDS SUMMARY | 2024-06-14 23:28 | XMS_ITS | Encounter Summary ---
Author Organization [facility] Healthcare Address [address] [place] [address] Care Team Providers Care Wheel Filler Name Role Phone Criss Blanco MD Unavailable Lashay Downs RN Unavailable Unavailab Duke Goodwin RN Unavailable UnavailNgozi Husain MD Unavailable [phone] Jose Roberto Marx MD Unavailable [phone] Encounter Details Date Type Department Care Team (Latest Contact Info) Description 10/13/2020 9:47 AM CDT - 10/13/2020 3:39 PM CDT Hospital Encounter [facility] Operating Room [address] [place] [address] Nathanael Valdez MD [address] [place] [address] 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 Plan to proceed to the OR for biopsy and laser treatment of the new right TVC lesions. No orders of the defined types were placed in this encounter. Disposition: No follow-ups on file. Nathanael Valdez MD, FACS Dialysis Biomed Technician [facility] Voice & Airway Center Division of Laryngology Department of Otolaryngology--Head & Neck Surgery Portions of this note were dictated using M*Modal Fluency Direct. Technical Implementation Lead variances may occur. I have seen and [...] procedure * Pre-Procedure Instructions - Kavya Carson ASSISTANT WOMEN'S TENNIS COACH - 10/06/2020 8:58 AM CDT Center for Preoperative Assessment and Planning CPAP Clinic Location: [facility] The night before your [...] Planning Perioperative Nursing Note Telephone Preoperative Evaluation ([facility]) - TELEPHONE ONLY, NO PHYSICAL EXAM [...] Alone Support Systems: Family members Assistance Needed: Medicine Assistant and helper: Brother Raimundo Patient expects [...] in a congregate living facility (ex. assisted living/correction facility, prison, jail)?: No Have you tested positive for COVID-19 [...] 20 seconds. Use an alcohol- based hand urinalysis technician that contains at least 60% alcohol if [...] insurance card, a photo ID (like a Medicine Assistant's license) and a method of payment [...] COVID Test Request Placed in Epic to [facility]. Test to be performed on 10/10 at [facility], [address], [place] [address], M-F 8a-7:30p, Sat/Sun 8a-7:30p. HOLIDAY hours may vary. If you have COVID testing or should have COVID testing for your surgery/procedure, please read below section: If you need to reschedule your COVID test to a different location or if your surgery gets rescheduled, you MUST call [phone] Saturday-Saturday 8am-4:30pm to get your COVID testing rescheduled or your lab order will not be available at Testing Sites. COVID Testing is only valid for up to 96 hours prior to surgery date, unless otherwise specified. If you are unable to reach staff at the above phone number, please call the CPAP Staff at [phone]. This number cannot order a lab test, [...] 20 seconds. Use an alcohol- based hand urinalysis technician that contains at least 60% alcohol if soap and water are not available. All patients should read below section: All visitors/patients are being asked to wear a clean mask when entering the hospital. COVID 19 Updates & Visitor Policy: Please access [email or web address] for the most updated information. Information on [facility]: Please view [email or web address] (Patient & Visitor Information) for additional details regarding Advanced Directive forms, AWARE, directions, parking information, lodging, Internet access, dining and more. Information on [facility]: Please view [email or web address] (Patient and Visitor Information) for parking/directions and more. For MyChart information, to activate account or password recovery, please go to [email or web address] or call [phone] (toll-free: [phone]). Surgery Times: For patients having surgery @ [facility], [facility] or [facility], if your surgeon's office has not notified you of your surgery time by NOON THE BUSINESS DAY BEFORE your surgery, please call [phone] and ask for your surgeon'soffice Dr Nathanael [...] biopsy) 10/13/2020 1:09 PM CDT Narrative PATHOLOGY [facility] - 10/18/2020 10:07 AM CDT EPIC results best viewed via link to PDF [facility] [place] [address] SURGICAL PATHOLOGY REPORT FINAL Patient Name: ?? PASQUALE SANCHEZ Gender: ??M : ??1945 (Age: 75) Address: ??[address] [place] [address] ??[address] Hospital #: ??[id number] Taken:10/13/2020 Received:10/13/2020 Reported: 10/18/2020 Patient Type: [facility] SDS ?? Service: Surgery Location: [facility] Physician(s): ??Nathanael Valdez M.D. ZOILA Kuo Diagnosis: [...] No evidence of dysplasia or malignancy ?? [facility]/10/17/2020 10:09 By this signature, I attest that [...] margin is a 0.1 cm piece of msasey tissue. ??Labeled D1, filtered. ??Jar 0. Received in formalin labeled with the patient's identifiers and superior margin is a 0.5 cm elongated piece of massey tissue. ??Labeled E1, filtered. ??Jar 0. Received in formalin labeled with the patient's identifiers and posterior margin is a 0.2 cm piece of massey tissue. ??Labeled F1. ??Jar 0. mab10/14/2020 10:29 PA(s): Iris Cobos MS, PA ([facility]) By this signature, I attest that the above diagnosis is based upon my personal examination of the slides(and/or other material). Addenda/Procedures The performance characteristics of some immunohistochemical stains, fluorescence in-situ hybridization tests and immunophenotyping by flow cytometry cited in this report (if any) were determined by the [facility] at [facility] as part of an ongoing clinical quality assurance specialist program and in compliance [...] the Surgical Pathology Department of [facility]. ??It has not been cleared or approved by the U. S. Food and Drug Administration. IMAGES AND SCANNED DOCUMENTS, IF INCLUDED, ONLY VIEWABLE IN PDF VERSION OF REPORT Nathanael Valdez MD LAB PATHOLOGY ORDERABLES Final Result PATHOLOGY [facility] 3rd Floor [place], [place] [phone] documented in this encounter Visit Diagnoses Diagnosis [...] PRN, 1st line for pain, Starting on Amnasa 10/13/20 at 1356, Phase I, Switch to [...] 10/13/2020 documented in this encounter Care Teams Wheel Filler Relationship Specialty [place] [address] [facility] [address] [place] [address] Rheumatology 02/21/17 Lashay Downs, GAY Registered Nurse Pain Management 06/17/17 Duke Do, RN Registered Nurse 09/09/17 Ngozi Petty MD Radiation Oncologist Radiation Oncology 02/05/19 Jose Roberto Marx MD Referring Physician Otolaryngology 02/05/19 documented as of this encounter
--- OUTSIDE RECORDS SUMMARY | 2024-06-14 23:28 | XMS_ITS | Encounter Summary ---
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 Gender Identity Not on file Sexual [...] on stairs Contact your local community or [facility] for information on exercise, fall prevention [...] [facility] GENETIC TESTING Final Res ult [facility] [address] [facility] [place] [address] documented in this encounter Visit Diagnoses Not on filedocumented in this encounter Care Teams Associate Professor Of Biostatistics Relationship Specialty [place] [address] [facility] [address] [place] [address] Rheumatology 02/21/17 Lashay Downs, RN Registered Nurse Pain Management 06/17/17 Duke Do, RN Registered Nurse 09/09/17 Ngozi Petty MD Radiation Oncologist Radiation Oncology 02/05/19 Jose Roberto Marx MD Referring Physician Otolaryngology 02/05/19 documented as of this encounter
--- OUTSIDE RECORDS SUMMARY | 2024-06-14 23:28 | XMS_ITS | Encounter Summary ---
Author Organization [facility] Healthcare Address [address] [place] [address] Care Team Providers Care Outdoor Pursuits Instructor Name Role Phone Criss Blanco MD Unavailable Lashay Downs RN Unavailable Unavailab Duke Goodwin RN Unavailable UnavailNgozi Husain MD Unavailable [phone] Jose Roberto Marx MD Unavailable [phone] Reason for Visit * Reason Comments Chronic Pain Back Pain Encounter Details Date Type Department Care Team (Latest Contact Info) Description 09/27/2020 10:13 AM CDT - 09/27/2020 11:59 PM CDT Hospital Encounter Pain Management Center at [facility] [address] [address], [address] [place] [address] Kaykay Reyes MD [address] 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 o Call [phone] choose option #1 for the Prescription Refill [...] please contact the Pain Management Center at [phone]. For any questions about your visit or your procedure, please call the Pain Management Center [phone] (Saturday-Saturday 7:30 am - 4:00 pm). Please [...] on stairs Contact your local community or [facility] for information on exercise, fall prevention programs, or options for improving home safety. 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
--- OUTSIDE RECORDS SUMMARY | 2024-06-14 23:28 | XMS_ITS | Encounter Summary ---
Author Organization [facility] Healthcare Address [address] [place] [address] Care Team Providers Care Bar Captain Name Role Phone Criss Blanco MD Unavailable Lashay Downs RN Unavailable Unavailab Duke Goodwin RN Unavailable UnavailNgozi [place] MD Unavailable [phone] Jose Roberto Marx MD Unavailable [phone] Encounter Details Date Type Department Care Team (Late st Contact Info) Description 08/24/2020 Telephone Pain Management Center at [facility] [address] [address], [address] [place] [phone] Kaykay Reyes MD [address] [facility] [place] [address] Social History Tobacco Use Types [...] on file 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
--- OUTSIDE RECORDS SUMMARY | 2024-06-14 23:28 | XMS_ITS | Encounter Summary ---
Author Organization [facility] Healthcare Address [address] [place] [address] Care Team Providers Care Model Technician Name Role Phone Criss Blanco MD Unavailable Lashay Downs RN Unavailable Unavailab Duke Goodwin RN Unavailable UnavailNgozi Husain MD Unavailable [phone] Jose Roberto Marx MD Unavailable [phone] Reason for Visit * Reason Onset Date Comments medication question 08/24/2020 Encounter Details Date Type Department Care Team (Late st Contact Info) Description 08/24/2020 Telephone Pain Management Center at [facility] [address] [address], [address] [place] [address] Kaykay Reyes MD [address] [facility] [place] [address] medication question Social History Tobacco [...] on file 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 * Telephone Encounter - Nori Grijlava RN - 08/24/2020 12:49 PM CDT Patient [...] on filedocumented in this encounter Care Teams Model Technician Relationship Specialty [place] [address] [facility] [address] [place] [address] Rheumatology 02/21/17 Lashay Downs, RN Registered Nurse Pain Management 06/17/17 Duke Do, RN Registered Nurse 09/09/17 Ngozi Petty MD Radiation Oncologist Radiation Oncology 02/05/19 Jose Roberto Marx MD Referring Physician Otolaryngology 02/05/19 documented as of this encounter
--- OUTSIDE RECORDS SUMMARY | 2024-06-14 23:28 | XMS_ITS | Encounter Summary ---
Author Organization [facility] Address [address] [facility] [address] [place] [address] Care Team Providers Care Fourdrinier Tender Name Role Phone Criss Blanco MD Unavailable Lashay Downs RN Unavailable Unavailab Duke Goodwin RN Unavailable UnavailNgozi Husain MD Unavailable [phone] Jose Roberto Marx MD Unavailable [phone] Reason for Visit * Reason Comments COVID-19 EVALUATION Pt is here for a pre procedural covid test. 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
--- OUTSIDE RECORDS SUMMARY | 2024-06-14 23:28 | XMS_ITS | Encounter Summary ---
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 ??Testing performed at [facility] Molecular Infectious Disease Laboratory. ??The [employer] COVID-19 Direct assay is for in [...] reviewed July 07, 2020. Testing performed by: [facility], [address] [facility] [place]., [address] First COVID-19 test? Unknown C[facility]ER CH Comment:Testing performed by : [facility], [address] [place]., [address] Employeed in healthcare? Unknown [facility] CH Comment:Testing performed by : [facility], [address] [facility], [address] status? Unknown C[facility] CH Comment:Testing performed by : [facility], [address] [place]., [address] Group care resident? Unknown C[facility] CH Comment:Testing performed by : [facility], [address] [facility], [address] Hospitalized? Unknown C[facility] CH Comment:Testing performed by : [facility], [address] [facility], [address] Is patient in ICU? Unknown C[facility]ER CH Comment:Testing performed by : [facility], [address] [place] [address], [address] Symptomatic as defined by CDC? Unknown C[facility] CH Comment:Testing performed by : [facility], [address] [place] [address]., [address] Nasopharyngeal 10/10/2020 9: 23 AM CDT 10/10/2020 4:11 PM CDT us Nathanael Valdez MD LAB MICROBIOLOGY - GENERA L ORDERABLES Final Result Performing Organization Address City/State/[facility] Co de Phone Number ANDRE [address] [address] Department [place] [address] documented in this encounter Visit Diagnoses Diagnosis Preop testing Unspecified pre-operative examination documented in this encounter Care Teams Case Investigator Relationship Specialty [place] [address] [address] Rheumatology 02/21/17 Lashay Downs, RN Registered Nurse Pain Management 06/17/17 Duke Do, RN Registered Nurse 09/09/17 Ngozi Petty MD Radiation Oncologist Radiation Oncology 02/05/19 Jose Roberto Marx MD Referring Physician Otolaryngology 02/05/19 documented as of this encounter
--- OUTSIDE RECORDS SUMMARY | 2024-06-14 23:28 | XMS_ITS | Encounter Summary ---
Author Organization [facility] Healthcare Address [address] [place] [address] Care Team Providers Care Sanding Supervisor Name Role Phone Criss Blanco MD Unavailable Lashay Downs RN Unavailable Unavailab Duke Goodwin RN Unavailable UnavailNgozi Husain MD Unavailable [phone] Jose Roberto Marx MD Unavailable [phone] Reason for Visit * Reason Onset Date Comments precall 08/22/2020 Encounter Details Date Type Department Care Team (Late st Contact Info) Description 08/22/2020 Telephone Pain Management Center at [facility] [address] [address], [address] [place] [address] Florentino Samuel precall Social History Tobacco Use [...] on file 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 Remind Patients of our location. [address] [place] [address]. [facility] [address], [address] 2. Have you received [...] 2 weeks ago? Yes [x] No [] [employer] august 08 5. Ask the covid screening [...] No [] 5. 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 (only ask if needed) Yes [] [...] on filedocumented in this encounter Care Teams Sanding Supervisor Relationship Specialty [place] [address] [facility] [address] [place] [address] Rheumatology 02/21/17 Lashay Downs, GAY Registered Nurse Pain Management 06/17/17 Duke Do, GAY Registered Nurse 09/09/17 Ngozi Petty MD Radiation Oncologist Radiation Oncology 02/05/19 Jose Roberto Marx MD Referring Physician Otolaryngology 02/05/19 documented as of this encounter
--- OUTSIDE RECORDS SUMMARY | 2024-06-14 23:28 | XMS_ITS | Encounter Summary ---
Author Organization [facility] Address [address] [place] [address] Phone Care Team Providers Care Estate Planning Paralegal Name Role Phone Criss Blanco MD Unavailable Lashay Downs RN Unavailable Unavailab Duke Goodwin RN Unavailable UnavailNgozi Husain MD Unavailable [phone] Jose Roberto Marx MD Unavailable [phone] Reason for Visit * Reason Comments Dysphonia * Consultation (Routine) - Closed Specialty Diagnoses / Procedures Referred By Alcira forrest Referred To Contact Otolaryngology Diagnoses Dysphonia Viraj Romeo, ZOILA [address] [place] [address] Phone: tel: fax: [facility] (All Locations) Referral ID Status Reason Start Date Expiration Date V isits Requested Visits Authorized [id number] Closed Specialty Services Required 06/23/2020 12/20/2020 99 99 Encounter Details Date Type Department Care Team (Late st Contact Info) Description 10/04/2020 9:40 AM CDT Office Visit 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 Plan to proceed to the OR for biopsy and laser treatment of the new right TVC lesions. No orders of the defined types were placed in this encounter. Disposition: No follow-ups on file. Nathanael Valdez MD, FACS Pesticide Use Medical Coordinator [facility] Voice & Airway Center Division of Laryngology Department of Otolaryngology--Head & Neck Surgery Portions of this note were dictated using M*Modal Fluency Direct. Visiting Professor variances may occur. I have seen and [...] (HCC) 75 yo M with a h/o [id number] TVC SCCA s/p KTP laser, presenting with [...] on stairs Contact your local community or [facility] for information on exercise, fall prevention programs, or options for improving home safety. 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
--- OUTSIDE RECORDS SUMMARY | 2024-06-14 23:28 | XMS_ITS | Encounter Summary ---
Author Organization [facility] Healthcare Address [address] [place] [address] Care Team Providers Care Employee Communications Manager Name Role Phone Criss Blanco MD Unavailable Lashay Downs RN Unavailable Unavailab Duke Goodwin RN Unavailable UnavailNgozi Husain MD Unavailable [phone] Jose Roberto Marx MD Unavailable [phone] Encounter Details Date Type Department Care Team (Latest Contact Info) Description 08/23/2020 8:57 AM CDT - 08/23/2020 11:59 PM CDT Hospital Encounter Pain Management Center at [facility] [address] [address], [address] [place] [address] Kaykay Reyes MD [address] [facility] [address] [place] [address] Spondylosis of lumbar region without [...] on file Legal 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 o Call [phone] choose option #1 for the Prescription Refill [...] please contact the Pain Management Center at [phone]. For any questions about your visit or your procedure, please call the Pain Management Center [phone] (Saturday-Saturday 7:30 am - 4:00 pm). Please [...] and go to the Emergency Department. Notify [facility] AFTER receiving care for the symptoms. Please call [facility] if you have questions or concerns @ [phone] documented in this encounter Medications at Time [...] mg documented in this encounter Care Teams Employee Communications Manager Relationship Specialty [place] [address] [facility] [address] [place] [address] Rheumatology 02/21/17 Lashay Downs, RN Registered Nurse Pain Management 06/17/17 Duke Do, RN Registered Nurse 09/09/17 Ngozi Petty MD Radiation Oncologist Radiation Oncology 02/05/19 Jose Roberto Marx MD Referring Physician Otolaryngology 02/05/19 documented as of this encounter
--- OUTSIDE RECORDS SUMMARY | 2024-06-14 23:28 | XMS_ITS | Encounter Summary ---
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 documented as of this encounter Visit Diagnoses Not on filedocumented in this encounter Care Teams Joint Filler Relationship Specialty [place] [address] [facility] [address] [place] [address] Rheumatology 02/21/17 Lashay Downs, GAY Registered Nurse Pain Management 06/17/17 Duke Do, GAY Registered Nurse 09/09/17 Ngozi ePtty MD Radiation Oncologist Radiation Oncology 02/05/19 Jose Roberto Marx MD Referring Physician Otolaryngology 02/05/19 documented as of this encounter
--- OUTSIDE RECORDS SUMMARY | 2024-06-14 23:28 | XMS_ITS | Encounter Summary ---
Author Organization [facility] Healthcare Address [address] [place] [address] Care Team Providers Care Health Director Name Role Phone Criss Blanco MD Unavailable Lashay Downs RN Unavailable Unavailab Duke Goodwin RN Unavailable UnavailNgozi Husain MD Unavailable [phone] Jose Roberto Marx MD Unavailable [phone] Encounter Details Date Type Department Care Team (Late st Contact Info) Description 08/23/2020 Telephone Pain Management Center at [facility] [address] [address], [address] [place] [phone] Kaykay Reyes MD [address] [facility] [place] [address] Social History Tobacco Use Types [...] on file 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
--- OUTSIDE RECORDS SUMMARY | 2024-06-14 23:28 | XMS_ITS | Encounter Summary ---
Author Organization [facility] Medical Group Address [address] [facility] [address] [place] [address] Care Team Providers Care Quality And Reliability Engineer Name Role Phone Criss Blanco MD Unavailable Lashay Downs RN Unavailable Unavailab Duke Goodwin RN Unavailable UnavailNgozi Husain MD Unavailable [phone] Jose Roberto Marx MD Unavailable [phone] Encounter Details Date Type Department Care Team (Late st Contact Info) Description 10/05/2020 Orders Only [facility] Testing Site - [address] [place] [address] Nathanael Valdez MD [address] [place] [address] Preop testing (Primary Dx) Social History Tobacco [...] on file 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 Please select the performing region: [facility] Medical Group documented in this encounter Plan [...] examination documented in this encounter Care Teams Quality And Reliability Engineer Relationship Specialty [place] [address] [facility] [address] [place] [address] Rheumatology 02/21/17 Lashay Downs, RN Registered Nurse Pain Management 06/17/17 Duke Do, RN Registered Nurse 09/09/17 Ngozi Petty MD Radiation Oncologist Radiation Oncology 02/05/19 Jose Roberto Marx MD Referring Physician Otolaryngology 02/05/19 documented as of this encounter
--- OUTSIDE RECORDS SUMMARY | 2024-06-14 23:28 | XMS_ITS | Encounter Summary ---
Author Organization [facility] Healthcare Address [address] [place] [address] Care Team Providers Care Silverware Cleaner Name Role Phone Criss Blanco MD Unavailable Lashay Downs RN Unavailable Unavailab Duke Goodwin RN Unavailable UnavailNgozi Husain MD Unavailable [phone] Jose Roberto Marx MD Unavailable [phone] Encounter Details Date Type Department Care Team (Late st Contact Info) Description 08/23/2020 Telephone Pain Management Center at [facility] [address] [address], [address] [place] [phone] Kaykay Reyes MD [address] [facility] [place] [address] Social History Tobacco Use Types [...] file 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
--- OUTSIDE RECORDS SUMMARY | 2024-06-14 23:28 | XMS_ITS | Encounter Summary ---
Author Organization [facility] Healthcare Address [address] [place] [address] Care Team Providers Care Statistical Machine Mechanic Name Role Phone Criss Blanco MD Unavailable Lashay Downs RN Unavailable Unavailab Duke Goodwin RN Unavailable UnavailNgozi Husain MD Unavailable [phone] Jose Roberto Marx MD Unavailable [phone] Reason for Visit * Reason Onset Date Comments medication issue 08/22/2020 Encounter Details Date Type Department Care Team (Late st Contact Info) Description 08/22/2020 Telephone Pain Management Center at [facility] [address] [address], [address] [place] [phone] Kaykay Reyes MD [address] [facility] [place] [address] medication issue Social History Tobacco [...] on file 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
--- OUTSIDE RECORDS SUMMARY | 2024-06-14 23:28 | XMS_ITS | Encounter Summary ---
Author Organization [facility] Healthcare Address [address] [place] [address] Care Team Providers Care Tint Layer Name Role Phone Criss Blanco MD Unavailable Lashay Downs RN Unavailable Unavailab Duke Goodwin RN Unavailable UnavailNgozi Husain MD Unavailable [phone] Jose Roberto Marx MD Unavailable [phone] Reason for Referral * Diagnostic Imaging (Routine) - Closed Specialty Diagnoses / Procedures Referred By Contac t Referred To Contact Diagnoses Pain management Procedures FL Fluoroscopy < 1 Hour (Statistical Only) Kaykay Reyes MD Phone: tel: fax: [address] [place] [address] Referral ID Status Reason Start Date Expiration Date Visits Re quested Visits Authorized [id number] Closed 08/23/2020 09/22/2021 1 1 Reason for Visit * Diagnostic Imaging (Routine) - Closed Specialty Diagnoses / Procedures Referred By Contac t Referred To Contact Diagnoses Pain management Procedures FL Fluoroscopy < 1 Hour (Statistical Only) Kaykay Reyes MD Phone: tel: fax: [address] [address] [address] [address] Referral ID Status Reason Start Date Expiration Date Visits Re quested Visits Authorized [id number] Closed 08/23/2020 09/22/2021 1 1 Encounter Details Date Type Department Care Team (Latest Contact Info) Description 08/23/2020 7:47 AM CDT - 08/23/2020 8:56 AM CDT Hospital Encounter [facility] [address] 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 Gender Identity Not on file Sexual [...] stairs Contact your local community or [facility] for information on exercise, fall prevention programs, [...] management documented in this encounter Care Teams Tint Layer Relationship Specialty [place] [address] [facility] [address] [place] [address] Rheumatology 02/21/17 Lashay Downs, RN Registered Nurse Pain Management 06/17/17 Duke Do, RN Registered Nurse 09/09/17 Ngozi Petty MD Radiation Oncologist Radiation Oncology 02/05/19 Jose Roberto Marx MD Referring Physician Otolaryngology 02/05/19 documented as of this encounter
--- OUTSIDE RECORDS SUMMARY | 2024-06-14 23:29 | XMS_ITS | Encounter Summary ---
Author Organization [facility] Healthcare Address [address] [place] [address] Care Team Providers Care Cleat Blanker Name Role Phone Criss Blanco MD Unavailable Lashay Downs RN Unavailable Unavailab Duke Goodwin RN Unavailable UnavailNgozi Husain MD Unavailable [phone] Jose Roberto Marx MD Unavailable [phone] Encounter Details Date Type Department Care Team (Late st Contact Info) Description 08/15/2020 Telephone Pain Management Center at [facility] [address] [address], [address] [place] [phone] Kaykay Reyes MD [address] [facility] [place] [address] Social History Tobacco [...] on file 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 documented as of this encounter Visit Diagnoses Not on filedocumented in this encounter Care Teams Cleat Blanker Relationship Specialty [place] [address] [facility] [address] [place] [address] Rheumatology 02/21/17 Lashay Downs, RN Registered Nurse Pain Management 06/17/17 Duke Do, GAY Registered Nurse 09/09/17 Ngozi Petty MD Radiation Oncologist Radiation Oncology 02/05/19 Jose Roberto Marx MD Referring Physician Otolaryngology 02/05/19 documented as of this encounter
--- OUTSIDE RECORDS SUMMARY | 2024-06-14 23:29 | XMS_ITS | Encounter Summary ---
Author Organization [facility] Healthcare Address [address] [place] [address] Care Team Providers Care Loop Cutter Name Role Phone Criss Blanco MD Unavailable Lashay Downs RN Unavailable Unavailab Duke Goodwin RN Unavailable UnavailNgozi Husain MD Unavailable [phone] Jose Roberto Marx MD Unavailable [phone] Encounter Details Date Type Department Care Team (Latest Contact Info) Description 07/07/2020 3:55 PM POOL TECHNICIAN - 07/07/2020 11:59 PM POOL TECHNICIAN Hospital Encounter [facility] Imaging [address] [place] [address] Kaykay Reyes MD [address] [facility] [place] [address] Discharge Disposition: Discharge to home [...] on file Legal Sex Male 12:56 AM POOL TECHNICIAN Gender Identity Not on file Sexual [...] on stairs Contact your local community or [facility] for information on exercise, fall prevention programs, or options for improving home safety. documented as of this encounter Procedures Procedure Name Priority Date/Time Associated Diagnosis Comments NEURO CT MR OUTSIDE REFERENCE Routine 07/07/2020 3:55 PM POOL TECHNICIAN Pain documented in this encounter Results * Neuro CT MR Outside Reference (07/07/2020 3:55 PM POOL TECHNICIAN) Impressions RAD_[facility] - 07/07/2020 3:55 PM POOL TECHNICIAN These images are for Reference purposes only and have not been reviewed by [facility] Radiology. ??There will be no report generated by a [facility] Radiologist. Narrative [facility] - 07/07/2020 3:55 PM POOL TECHNICIAN EXAMINATION: ??Images For Reference Purposes Only us Kaykay Reyes MD IMG CT PROCEDURES Final R esult [facility] documented in this encounter Visit Diagnoses Not on filedocumented in this encounter Care Teams Loop Cutter Relationship Specialty [place] [address] [facility] [address] [place] [address] Rheumatology 02/21/17 Lashay Downs, RN Registered Nurse Pain Management 06/17/17 Duke Do, GAY Registered Nurse 09/09/17 Ngozi Petty MD Radiation Oncologist Radiation Oncology 02/05/19 Jose Roberto Marx MD Referring Physician Otolaryngology 02/05/19 documented as of this encounter
--- OUTSIDE RECORDS SUMMARY | 2024-06-14 23:29 | XMS_ITS | Encounter Summary ---
Author Organization [facility] Healthcare Address [address] [place] [address] Care Team Providers Care Cigarette Tipper Name Role Phone Criss Blanco MD Unavailable Lashay Downs RN Unavailable Unavailab Duke Goodwin RN Unavailable UnavailNgozi Husain MD Unavailable [phone] Jose Roberto Marx MD Unavailable [phone] Reason for Visit * Reason Onset Date Comments intake assessment 06/24/2020 Encounter Details Date Type Department Care Team (Late st Contact Info) Description 06/24/2020 Telephone Pain Management Center at [facility] [address] [address], [address] [place] [address] Kaykay Reyes MD [address] [facility] [place] [address] intake assessment Social History Tobacco [...] file Legal 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 Lower [...] name and location of previous pain management? [facility] - had injectionsseveral years ago but [...] insurance referral has been requested from PCP TRICAL TECH documented in this encounter Plan of Treatment Not on file documented as of this encounter Visit Diagnoses Not on filedocumented in this encounter Care Teams Cigarette Tipper Relationship Specialty [place] [address] [facility] [address] [place] [address] Rheumatology 02/21/17 Lashay Downs, RN Registered Nurse Pain Management 06/17/17 Duke Do, GAY Registered Nurse 09/09/17 Ngozi Petty MD Radiation Oncologist Radiation Oncology 02/05/19 Jose Roberto Marx MD Referring Physician Otolaryngology 02/05/19 documented as of this encounter
--- OUTSIDE RECORDS SUMMARY | 2024-06-14 23:29 | XMS_ITS | Encounter Summary ---
Author Organization [facility] Healthcare Address [address] [place] [address] Care Team Providers Care Nascar Racer Name Role Phone Criss Blanco MD Unavailable Lashay Downs RN Unavailable Unavailab Duke Goodwin RN Unavailable UnavailNgozi Husain MD Unavailable [phone] Jose Roberto Marx MD Unavailable [phone] Reason for Visit * Reason Onset Date Comments Pre-Surgical Call 07/06/2020 Encounter Details Date Type Department Care Team (Late st Contact Info) Description 07/06/2020 Telephone Pain Management Center at [facility] [address] [address], [address] [place] [phone] Kaykay Ryees MD [address] [facility] [place] [address] Pre-Surgical Call Social History Tobacco [...] on file Legal 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 Remind Patients of our location. [facility]. [facility] [address], [address] 2. Ask the covid [...] No [] 7. Do you have a residential driver? (only ask if needed) Yes [] No [] 8. NPO status? (only ask if needed) Yes [] No [] NT MANAGER documented in this encounter Plan of [...] stairs Contact your local community or [facility] for information on exercise, fall prevention programs, or options for improving home safety. documented as of this encounter Visit Diagnoses Not on filedocumented in this encounter Care Teams Nascar Racer Relationship Specialty [place] [address] [facility] [address] [place] [address] Rheumatology 02/21/17 Lashay Downs, GAY Registered Nurse Pain Management 06/17/17 Duke Do, GAY Registered Nurse 09/09/17 Ngozi Petty MD Radiation Oncologist Radiation Oncology 02/05/19 Jose Roberto Marx MD Referring Physician Otolaryngology 02/05/19 documented as of this encounter
--- OUTSIDE RECORDS SUMMARY | 2024-06-14 23:29 | XMS_ITS | Encounter Summary ---
Author Organization [facility] Healthcare Address [address] [place] [address] Care Team Providers Care Fluorescent Lamp Replacer Name Role Phone Criss Blanco MD Unavailable Lashay Downs RN Unavailable Unavailab Duke Goodwin RN Unavailable UnavailNgozi Husain MD Unavailable [phone] Jose Roberto Marx MD Unavailable [phone] Grey Tomas MD Primary Care Provider [phone] Encounter Details Date Type Department Care Team (Late st Contact Info) Description 08/15/2020 Telephone Pain Management Center at [facility] [address] [address], [address] [place] [address] Kaykay Reyes MD [address] [facility] [place] [address] Social History Tobacco Use Types [...] on file 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
--- OUTSIDE RECORDS SUMMARY | 2024-06-14 23:29 | XMS_ITS | Encounter Summary ---
Author Organization [facility] Healthcare Address [address] [place] [address] Care Team Providers Care Academic Support Director Name Role Phone Criss Blanco MD Unavailable Lashay Downs RN Unavailable Unavailab Duke Goodwin RN Unavailable UnavailNgozi Husain MD Unavailable [phone] Jose Roberto Marx MD Unavailable [phone] Reason for Referral * Consultation (Routine) - Closed Specialty Diagnoses / Procedures Referred By Contac t Referred To Contact Pain Management Diagnoses Chronic midline low back pain without sciatica Lumbar spondylosis Spine pain Samuel Finley MD Phone: tel: fax: Kaykay Reyes MD [address] [facility] [address] [place] [address] Phone: tel: fax: Referral ID Status Reason Start Date Expiration Date V isits Requested Visits Authorized [id number] Closed Specialty Services Required 06/22/2020 12/26/2020 12 12 Question Answer Please select the performing region: [facility] [157] To provider: KAYKAY REYES [[id number]] # of visits: 1 Comments Treatment and evaluation for consideration of facet joint injections and RFA. Please call patient to schedule an appointment. ERS COMPENSATION LEGAL SECRETARY Reason for Visit * Reason Comments Initial Consult lower back pain bila teral * Consultation (Routine) - Closed Specialty Diagnoses / Procedures Referred By Contac t Referred To Contact Pain Management Diagnoses Chronic midline low back pain without sciatica Lumbar spondylosis Spine pain Samuel Finley MD Phone: tel: fax: Kaykay Reyes MD [address] [address] Phone: tel: fax: Referral ID Status Reason Start Date Expiration Date V isits Requested Visits Authorized [id number] Closed Specialty Services Required 06/22/2020 12/26/2020 12 12 Encounter Details Date Type Department Care Team (Latest Contact Info) Description 07/07/2020 7:53 AM WORKERS COMPENSATION LEGAL SECRETARY - 07/07/2020 8:59 AM WORKERS COMPENSATION LEGAL SECRETARY Hospital Encounter Pain Management Center at [facility] [address] [facility] [address] [place] [address] Samuel Finley MD [address] [address] Kaykay Reyes MD [address] [facility] [place], [place] [id number] Chronic midline low back pain without sciatica; [...] on file Legal Sex Male 12:56 AM WORKERS COMPENSATION LEGAL SECRETARY Gender Identity Not on file Sexual Orientation Not on file 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 Not on file Not on natalie e documented as of this encounter Last Filed Vital Signs Vital Sign Reading Time Taken Comments Blood Pressure 127/88 07/07/2020 9:23 AM WORKERS COMPENSATION LEGAL SECRETARY Pulse 64 07/07/2020 9:23 AM WORKERS COMPENSATION LEGAL SECRETARY Temperature 36.3 ??C (97.3 ??F) 07/07/2020 8:00 AM CS T Respiratory Rate 16 07/07/2020 9:23 AM WORKERS COMPENSATION LEGAL SECRETARY Oxygen Saturation 98% 07/07/2020 9:23 AM WORKERS COMPENSATION LEGAL SECRETARY Inhaled Oxygen Concentration - - Weight 95.3 kg (210 lb) 07/07/2020 8:00 AM WORKERS COMPENSATION LEGAL SECRETARY Height 182.9 cm (6') 07/07/2020 8:00 AM WORKERS COMPENSATION LEGAL SECRETARY Body Mass Index 28.48 07/07/2020 8:00 AM WORKERS COMPENSATION LEGAL SECRETARY documented in this encounter Discharge Instructions * Discharge Instructions* Ara Angulo, GAY - 07/07/2020 9:19 AM WORKERS COMPENSATION LEGAL SECRETARY See discharge instructions ERS COMPENSATION LEGAL SECRETARY * Patient Instructions* Che Martínez RN - 07/07/2020 8:00 AM WORKERS COMPENSATION LEGAL SECRETARY PAIN MANAGEMENT CENTER DISCHARGE INSTRUCTIONS [phone] (Saturday-Saturday 7:30 am - 4:00 pm) PLAN: [...] to the date of need. o Call [phone] choose option #1 for the Prescription Refill [...] please contact the Pain Management Center at [phone]. For any questions about your visit or your procedure, please call the Pain Management Center [phone] (Saturday-Saturday 7:30 am - 4:00 pm). Please [...] and go to the Emergency Department. Notify [facility] Pain Management Center AFTER receiving care for the symptoms. Please call [facility] Pain Management Center if you have questions or concerns @ [phone] 8 HOUR PAIN DIARY Pain Intensity Scale [...] hours after procedure 8 hours after procedure ERS COMPENSATION LEGAL SECRETARY ERS COMPENSATION LEGAL SECRETARY ERS COMPENSATION LEGAL SECRETARY documented in this encounter Medications at Time [...] tried oral NSAIDs, PT and HEP without manager intermediate benefit He saw Dr Finley for potential [...] or sphincter disturbances. MRI LS spine from [facility] reported multilevel DDD and spondylosis without neural [...] All questions answered. Agreed with the plan ERS COMPENSATION LEGAL SECRETARY documented in this encounter Miscellaneous Notes * Perioperative Nursing Note - Alanis Da Silva RN - 07/07/2020 8:00 AM CST Consent signed on paper, verified. H/P completed by Dr. Eric MD. ERS COMPENSATION LEGAL SECRETARY * Perioperative Nursing Note - Alanis Da Silva RN - 07/07/2020 8:00 AM CST Patient tolerated procedure well, ambulated to Recovery room with stand by assistance, gait belt on. ERS COMPENSATION LEGAL SECRETARY * Op Note - Kaykay Reyes MD [...] taken to recovery room in stable condition. ERS COMPENSATION LEGAL SECRETARY documented in this encounter Plan of Treatment [...] on stairs Contact your local community or [facility] for information on exercise, fall prevention programs, [...] at 0915, Intra-Op Given 07/07/2020 9:15 AM WORKERS COMPENSATION LEGAL SECRETARY 3 mL lidocaine (XYLOCAINE) 10 mg/mL (1 %) injection As needed, Starting on Manasa 07/07/20 at 0914, Intra-Op, Indications: Administration of Local AnesthesiaIndications:Administration of Local Anesthesia Given 07/07/2020 9:14 AM WORKERS COMPENSATION LEGAL SECRETARY 8 mL documented in this encounter Care Teams Academic Support Director Relationship Specialty [place] [address] [address] Rheumatology 02/21/17 Lashay Downs, GAY Registered Nurse Pain Management 06/17/17 Duke Do, RN Registered Nurse 09/09/17 Ngozi Petty MD Radiation Oncologist Radiation Oncology 02/05/19 Jose Roberto Marx MD Referring Physician Otolaryngology 02/05/19 documented as of this encounter
--- OUTSIDE RECORDS SUMMARY | 2024-06-14 23:29 | XMS_ITS | Encounter Summary ---
Author Organization [facility] Healthcare Address [address] [place] [address] Care Team Providers Care Director Medical Writing Name Role Phone Criss Blanco MD Unavailable Lashay Downs RN Unavailable Unavailab Duke Goodwin RN Unavailable UnavailNgozi Husain MD Unavailable [phone] Jose Roberto Marx MD Unavailable [phone] Encounter Details Date Type Department Care Team (Late st Contact Info) Description 08/18/2020 Telephone Pain Management Center at [facility] [address] [address], [address] [place] [phone] Kaykay Reyes MD [address] [facility] [address] [place] [address] Social History Tobacco Use Types [...] file 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
--- OUTSIDE RECORDS SUMMARY | 2024-06-14 23:29 | XMS_ITS | Encounter Summary ---
Author Organization [facility] Healthcare Address [address] [place] [address] Care Team Providers Care Art Glass Setter Name Role Phone Criss Blanco MD Unavailable Lashay Downs RN Unavailable Unavailab Duke Goodwin RN Unavailable UnavailNgozi Husain MD Unavailable [phone] Jose Roberto Marx MD Unavailable [phone] Reason for Referral * Diagnostic Imaging (Routine) - Closed Specialty Diagnoses / Procedures Referred By Contac t Referred To Contact Diagnoses Calculus of kidney Procedures XR Santosb Frank Lopez MD Phone: tel: fax: [address] [address] Referral ID Status Reason Start Date Expiration Date Visits Re quested Visits Authorized [id number] Closed 07/12/2020 08/11/2021 1 1 NEER SECOND ASSISTANT Reason for Visit * Diagnostic Imaging (Routine) - Closed Specialty Diagnoses / Procedures Referred By Contac t Referred To Contact Diagnoses Calculus of kidney Procedures XR Frank Payne MD Phone: tel: fax: [address] [address] Referral ID Status Reason Start Date Expiration Date Visits Re quested Visits Authorized [id number] Closed 07/12/2020 08/11/2021 1 1 Encounter Details Date Type Department Care Team (Latest Contact Info) Description 07/12/2020 9:56 AM ENGINEER SECOND ASSISTANT - 07/12/2020 11:59 PM ENGINEER SECOND ASSISTANT Hospital Encounter [facility] [address] [place] [address] Frank Lopez MD [address] [place] [id number] Calculus of kidney Discharge Disposition: Discharge to [...] on file Legal Sex Male 12:56 AM ENGINEER SECOND ASSISTANT Gender Identity Not on file Sexual [...] Read Routine (OP Routine) 07/12/2020 10:07 AM ENGINEER SECOND ASSISTANT Calculus of kidney documented in this encounter Results * XR Kub (07/12/2020 10:07 AM ENGINEER SECOND ASSISTANT) Anatomical Region Laterality Modality Body, Abdomen N/A Computed Radiogr aphy 07/12/2020 10:2 3 AM ENGINEER SECOND ASSISTANT Impressions 07/12/2020 10:28 AM ENGINEER SECOND ASSISTANT 1. ??No suspicious renal calcifications overlying the renal shadows. Calcifications adjacent to the lumbar spine are likely vascular. Electronically signed by: Samuel Villagomez M.D. Narrative 07/12/2020 10:28 AM ENGINEER SECOND ASSISTANT EXAMINATION: XR KUB ORDERING HEALTHCARE PROVIDER: FRANK [...] kidney documented in this encounter Care Teams Art Glass Setter Relationship Specialty [place] [address] [facility] [address] [place] [address] Rheumatology 02/21/17 Lashay Downs, RN Registered Nurse Pain Management 06/17/17 Duke Do, RN Registered Nurse 09/09/17 Ngozi Petty MD Radiation Oncologist Radiation Oncology 02/05/19 Jose Roberto Marx MD Referring Physician Otolaryngology 02/05/19 documented as of this encounter
--- OUTSIDE RECORDS SUMMARY | 2024-06-14 23:29 | XMS_ITS | Encounter Summary ---
Author Organization [facility] Healthcare Address [address] [place] [address] Care Team Providers Care Senior Materials Planner Name Role Phone Criss Blanco MD Unavailable Lashay Downs RN Unavailable Unavailab Duke Goodwin RN Unavailable UnavailNgozi Husain MD Unavailable [phone] Jose Roberto Marx MD Unavailable [phone] Reason for Referral * Diagnostic Imaging (Routine) - Closed Specialty Diagnoses / Procedures Referred By Contac t Referred To Contact Diagnoses DDD (degenerative disc disease), lumbar Spondylosis of lumbar region without myelopathy or radiculopathy Procedures NM Bone Scan SPECT Kaykay Reyes MD Phone: tel: fax: [id number] [place] [address] Referral ID Status Reason Start Date Expiration Date Visits Re quested Visits Authorized [id number] Closed 08/13/2020 09/27/2020 2 2 Reason for Visit * Diagnostic Imaging (Routine) - Closed Specialty Diagnoses / Procedures Referred By Contac t Referred To Contact Diagnoses DDD (degenerative disc disease), lumbar Spondylosis of lumbar region without myelopathy or radiculopathy Procedures NM Bone Scan SPECT Kaykay Reyes MD Phone: tel: fax: [facility] [address] [place] [address] Referral ID Status Reason Start Date Expiration Date Visits Re quested Visits Authorized [id number] Closed 08/13/2020 09/27/2020 2 2 Encounter Details Date Type Department Care Team (Latest Contact Info) Description 08/16/2020 9:31 AM CDT - 08/16/2020 11:59 PM CDT Hospital Encounter [facility] - Imaging [address] [place] [address] Kaykay Reyes MD [address] [facility] [address] [place] [address] DDD (degenerative disc disease), lumbar; [...] on file 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
--- OUTSIDE RECORDS SUMMARY | 2024-06-14 23:29 | XMS_ITS | Encounter Summary ---
Author Organization [facility] Healthcare Address [address] [place] [address] Care Team Providers Care Feed Mill Supervisor Name Role Phone Criss Blanco MD Unavailable Lashay Downs RN Unavailable Unavailab Duke Goodwin RN Unavailable UnavailNgozi Husain MD Unavailable [phone] Jose Roberto Marx MD Unavailable [phone] Reason for Referral * Diagnostic Imaging (Routine) - Closed Specialty Diagnoses / Procedures Referred By Contac t Referred To Contact Diagnoses DDD (degenerative disc disease), lumbar Spondylosis of lumbar region without myelopathy or radiculopathy Procedures NM Bone Scan SPECT Kaykay Reyes MD Phone: tel: fax: [facility] [address] [place] [address] Referral ID Status Reason Start Date Expiration Date Visits Re quested Visits Authorized [id number] Closed 08/13/2020 09/27/2020 2 2 LE SCHOOL VOLLEYBALL COACH Encounter Details Date Type Department Care Team (Late st Contact Info) Description 08/09/2020 Telephone Pain Management Center at [facility] [address] [address], [address] [place] [phone] Kaykay Reyes MD [address] [place] [address] Social History Tobacco Use Types Packs/Day Years [...] on file Legal Sex Male 12:56 AM MIDDLE SCHOOL VOLLEYBALL COACH Gender Identity Not on file Sexual Orientation Not on file 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 on file Not on natalie e documented as of this encounter Miscellaneous Notes * Addendum Note - Iris Ovalles RN - 08/10/2020 10:43 AM CSTAddended by: IRIS OVALLES on: 08/10/2020 10:43 AM Modules accepted: Orders [employer] S[employer]OL VOLLEYBALL COACH * Telephone Encounter - Iris Ovalles RN - 08/10/2020 10:38 AM MIDDLE SCHOOL VOLLEYBALL COACH Placed order for Bone SPECT scan and discussed with pt agrees to go to [facility] [employer]OL VOLLEYBALL COACH * Telephone Encounter - Kaykay Reyes MD - 08/10/2020 8:12 AM MIDDLE SCHOOL VOLLEYBALL COACH yes [employer] S[employer]OL VOLLEYBALL COACH * Telephone Encounter - Jodee Hurst RN - 08/09/2020 4:01 PM MIDDLE SCHOOL VOLLEYBALL COACH Patient walked into clinic wanting information about bone spect scan that was to be ordered. I do not see order in chart. Per ASHISH 07/14/20 note: Discussed with patient about options Will consider LES post Order Bone SPECT scan LS spine HEP discussed RTC post Scan OK to order bone spect scan? LE SCHOOL VOLLEYBALL COACH documented in this encounter Plan of Treatment [...] radiculopathy documented in this encounter Care Teams Feed Mill Supervisor Relationship Specialty [place] [address] [facility] [address] [place] [address] Rheumatology 02/21/17 aLshay Downs, RN Registered Nurse Pain Management 06/17/17 Duke Do, RN Registered Nurse 09/09/17 Ngozi Petty MD Radiation Oncologist Radiation Oncology 02/05/19 Jose Roberto Marx MD Referring Physician Otolaryngology 02/05/19 documented as of this encounter
--- OUTSIDE RECORDS SUMMARY | 2024-06-14 23:29 | XMS_ITS | Encounter Summary ---
Author Organization [facility] Healthcare Address [address] [place] [address] Care Team Providers Care Account Support Specialist Name Role Phone Criss Blanco MD Unavailable Lashay Downs RN Unavailable Unavailab Duke Goodwin RN Unavailable UnavailNgozi Husain MD Unavailable [phone] Jose Roberto Marx MD Unavailable [phone] Reason for Referral * Diagnostic Imaging (Routine) - Closed Specialty Diagnoses / Procedures Referred By Contac t Referred To Contact Diagnoses Pain management Procedures FL Fluoroscopy < 1 Hour (Statistical Only) Kaykay Reyes MD Phone: tel: fax: [address] [address] [place] [address] Referral ID Status Reason Start Date Expiration Date Visits Re quested Visits Authorized [id number] Closed 07/07/2020 08/06/2021 1 1 [place] MORTGAGE BANKER Reason for Visit * Diagnostic Imaging (Routine) - Closed Specialty Diagnoses / Procedures Referred By Contac t Referred To Contact Diagnoses Pain management Procedures FL Fluoroscopy < 1 Hour (Statistical Only) Kaykay Reyes MD Phone: tel: fax: [address] [address] [place] [address] Referral ID Status Reason Start Date Expiration Date Visits Re quested Visits Authorized [id number] Closed 07/07/2020 08/06/2021 1 1 Encounter Details Date Type Department Care Team (Latest Contact Info) Description 07/07/2020 9:00 AM RETAIL MORTGAGE BANKER - 07/07/2020 3:54 PM RETAIL MORTGAGE BANKER Hospital Encounter [facility] [address] [facility] [address] [place] [address] Pain management Discharge Disposition: Discharge to home [...] file Legal Sex Male 12:56 AM RETAIL MORTGAGE BANKER Gender Identity Not on file Sexual Orientation [...] Read Routine (OP Routine) 07/07/2020 9:25 AM RETAIL MORTGAGE BANKER Pain management documented in this encounter Results * FL Fluoroscopy < 1 Hour (Statistical Only) (07/07/2020 9:25 AM RETAIL MORTGAGE BANKER) Narrative RAD_PACS[facility] - 07/07/2020 9:31 AM RETAIL MORTGAGE BANKER The images from this study are not interpreted by Radiology. ??Please refer to the physician's procedure / OR operative note. us Kaykay Reyes MD IMG FLUOROSCOPY PROCEDURE S Final Result Performing Organization Address City/State/[facility] Co de Phone Number [facility] documented in this encounter Visit Diagnoses Diagnosis Pain management documented in this encounter Care Teams Account Support Specialist Relationship Specialty [place] [address] [facility] [address] [place] [address] Rheumatology 02/21/17 Lashay Downs, RN Registered Nurse Pain Management 06/17/17 Duke Do, RN Registered Nurse 09/09/17 Ngozi Petty MD Radiation Oncologist Radiation Oncology 02/05/19 Jose Roberto Marx MD Referring Physician Otolaryngology 02/05/19 documented as of this encounter
--- OUTSIDE RECORDS SUMMARY | 2024-06-14 23:29 | XMS_ITS | Encounter Summary ---
Author Organization [facility] Address [address] [place] [address] Phone Care Team Providers Care Arc Air Operator Name Role Phone Criss Blanco MD Unavailable Lashay Downs RN Unavailable Unavailab Duke Goodwin RN Unavailable UnavailNgozi Husain MD Unavailable [phone] Jose Roberto Marx MD Unavailable [phone] Reason for Referral * Consultation (Routine) - Closed Specialty Diagnoses / Procedures Referred By Alcira forrest Referred To Contact Otolaryngology Diagnoses Dysphonia Viraj Romeo PA [address] [place] [address] Phone: tel: fax: [facility] (All Locations) Referral ID Status Reason Start Date Expiration Date V isits Requested Visits Authorized [id number] Closed Specialty Services Required 06/23/2020 12/20/2020 99 99 Question Answer Please select the performing region: [facility] (All Locations) [167] # of visits: 1 MACY LABORATORY TECHNICIAN Reason for Visit * Reason Comments surveillance * Consultation (Routine) - Closed Specialty Diagnoses / Procedures Referred By Alcira forrest Referred To Contact Otolaryngology Diagnoses Dysphonia Viraj Romeo PA [address] [place] [address] Phone: tel: fax: [facility] (All Locations) Referral ID Status Reason Start Date Expiration Date V isits Requested Visits Authorized [id number] Closed Specialty Services Required 06/23/2020 12/20/2020 99 99 Encounter Details Date Type Department Care Team (Late st Contact Info) Description 08/09/2020 3:40 PM PHARMACY LABORATORY TECHNICIAN Office Visit 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 Nathanael Valdez MD, FACS Fuel Agent [facility] Division of Laryngology Department of Otolaryngology--Head & Neck Surgery Portions of this note were dictated using M*Modal Fluency Direct. Color Receiver variances may occur. 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 Continue routine surveillance. MACY LABORATORY TECHNICIAN documented in this encounter Plan of [...] site documented in this encounter Care Teams Arc Air Operator Relationship Specialty [place] [address] [facility] [address] [place] [address] Rheumatology 02/21/17 Lashay Downs, RN Registered Nurse Pain Management 06/17/17 Duke Do, RN Registered Nurse 09/09/17 Ngozi Petty MD Radiation Oncologist Radiation Oncology 02/05/19 Jose Roberto Marx MD Referring Physician Otolaryngology 02/05/19 documented as of this encounter
--- OUTSIDE RECORDS SUMMARY | 2024-06-14 23:29 | XMS_ITS | Encounter Summary ---
Author Organization [facility] Healthcare Address [address] [place] [address] Care Team Providers Care Machine Turner Name Role Phone Criss Blanco MD Unavailable Lashay Downs RN Unavailable Unavailab Duke Goodwin RN Unavailable UnavailNgozi Husain MD Unavailable [phone] Jose Roberto Marx MD Unavailable [phone] Reason for Visit * Reason Onset Date Comments Post MBB # 1 07/07/2020 Encounter Details Date Type Department Care Team (Late st Contact Info) Description 07/07/2020 Telephone Pain Management Center at [facility] [address] [address], [address] [place] [phone] Kaykay Reyes MD [address] [facility] [place] [address] Post MBB # 1 Social [...] on file Legal Sex Male 12:56 AM DOPE FIRER Gender Identity Not on file Sexual Orientation Not on file 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 FIRER * Telephone Encounter - Jodee Hurst RN - 07/08/2020 2:18 PM DOPE FIRER Please call patient to schedule follow up visit to discuss medications. Thank you FIRER * Telephone Encounter - Kaykay Reyes MD - 07/08/2020 2:12 PM DOPE FIRER Not a candidate for RFA. Will f/u to discuss pain meds. FIRER * Telephone Encounter - Jodee Hurst RN - 07/08/2020 1:15 PM DOPE FIRER PROCEDURE: Lumbar MBB Site: Right L2, L [...] procedure. How would you like to proceed? FIRER * Telephone Encounter - Alanis Da Silva RN - 07/07/2020 9:07 AM DOPE FIRER Patient had Right L2, L3, L4 MBB # 1 on 07/07/11. Please call patient to Follow up on the procedure response. Thank you. FIRER documented in this encounter Plan of Treatment [...] on filedocumented in this encounter Care Teams Machine Turner Relationship Specialty [place] [address] [facility] [address] [place] [address] Rheumatology 02/21/17 Lashay Downs, RN Registered Nurse Pain Management 06/17/17 Duke Do, GAY Registered Nurse 09/09/17 Ngozi Petty MD Radiation Oncologist Radiation Oncology 02/05/19 Jose Roberto Marx MD Referring Physician Otolaryngology 02/05/19 documented as of this encounter
--- OUTSIDE RECORDS SUMMARY | 2024-06-14 23:29 | XMS_ITS | Encounter Summary ---
Author Organization [facility] Healthcare Address [address] [place] [address] Care Team Providers Care Senior Manufacturing Technician Name Role Phone Criss Blanco MD Unavailable Lashay Downs RN Unavailable Unavailab Duke Goodwin RN Unavailable UnavailNgozi Husain MD Unavailable [phone] Jose Roberto Marx MD Unavailable [phone] Reason for Visit * Reason Onset Date Comments Pre-Surgical Call 07/13/2020 Encounter Details Date Type Department Care Team (Late st Contact Info) Description 07/13/2020 Telephone Pain Management Center at [facility] [address] [address], [address] [place] [phone] Kaykay Reyes MD [address] [facility] [place] [address] Pre-Surgical Call Social History Tobacco [...] on file Legal Sex Male 12:56 AM AVIONICS SYSTEM ENGINEER Gender Identity Not on file Sexual Orientation Not on file Occupation Industry Job Start Date Job 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 Remind Patients of our location. [address] [place] [address]. [facility] [address], [address] 2. Ask the covid [...] No [] 7. Do you have a emergency detail driver? (only ask if needed) Yes [] No [] 8. NPO status? (only ask if needed) Yes [] No [] NICS SYSTEM ENGINEER documented in this encounter Plan [...] on filedocumented in this encounter Care Teams Senior Manufacturing Technician Relationship Specialty [place] [address] [facility] [address] [place] [address] Rheumatology 02/21/17 Lashay Downs, GAY Registered Nurse Pain Management 06/17/17 Duke Do, GAY Registered Nurse 09/09/17 Ngozi Petty MD Radiation Oncologist Radiation Oncology 02/05/19 Jose Roberto Marx MD Referring Physician Otolaryngology 02/05/19 documented as of this encounter
--- OUTSIDE RECORDS SUMMARY | 2024-06-14 23:29 | XMS_ITS | Encounter Summary ---
Author Organization [facility] Healthcare Address [address] [place] [address] Care Team Providers Care Campus Security Officer Name Role Phone Criss Blanco MD Unavailable Lashay Downs RN Unavailable Unavailab Duke Goodwin RN Unavailable UnavailNgozi Husain MD Unavailable [phone] Jose Roberto Marx MD Unavailable [phone] Reason for Visit * Reason Comments Follow-up back pain Encounter Details Date Type Department Care Team (Latest Contact Info) Description 07/14/2020 7:57 AM BRUSH HOLDER ASSEMBLER - 07/14/2020 11:59 PM [facility] Hospital Encounter Pain Management Center at [facility] [address] [address], [address] [place] [phone] Kaykay Reyes MD [address] [facility] [place] [address] 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); Other [...] on file Legal Sex Male 12:56 AM BRUSH HOLDER ASSEMBLER Gender Identity Not on file Sexual Orientation Not on file 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 Not on file Not on natalie e documented as of this encounter Last Filed Vital Signs Vital Sign Reading Time Taken Comments Blood Pressure 150/85 07/14/2020 8:10 AM BRUSH HOLDER ASSEMBLER Pulse 70 07/14/2020 8:10 AM BRUSH HOLDER ASSEMBLER Temperature 36.4 ??C (97.5 ??F) 07/14/2020 8:10 AM CS T Respiratory Rate 16 07/14/2020 8:10 AM BRUSH HOLDER ASSEMBLER Oxygen Saturation 98% 07/14/2020 8:10 AM BRUSH HOLDER ASSEMBLER Inhaled Oxygen Concentration - - Weight 95.3 kg (210 lb) 07/14/2020 8:10 AM BRUSH HOLDER ASSEMBLER Height 182.9 cm (6') 07/14/2020 8:10 AM BRUSH HOLDER ASSEMBLER Body Mass Index 28.48 07/14/2020 8:10 AM BRUSH HOLDER ASSEMBLER documented in this encounter Discharge Instructions * Patient Instructions* Jodee Hurst, GAY - 07/14/2020 8:15 AM BRUSH HOLDER ASSEMBLER PAIN MANAGEMENT CENTER DISCHARGE INSTRUCTIONS [phone] (Saturday-Saturday 7:30 am - 4:00 pm) PLAN: [...] to the date of need. o Call [phone] choose option #1 for the Prescription Refill [...] please contact the Pain Management Center at [phone]. For any questions about your visit or your procedure, please call the Pain Management Center [phone] (Saturday-Saturday 7:30 am - 4:00 pm). Please [...] or go to the nearest Emergency Room. H HOLDER ASSEMBLER documented in this encounter Medications at Time [...] LS spine HEP discussed RTC post Scan H HOLDER ASSEMBLER documented in this encounter Miscellaneous Notes * Addendum Note - Jodee Hurst RN - 07/14/2020 8:15 AM CSTEncounter addended by: Jodee Hurst RN on: 07/14/2020 8:53 AM Actions taken: Flowsheet accepted, Clinical Note Signed, Charge Capture section accepted, Follow-upmodified, Procedure log completed H HOLDER ASSEMBLER documented in this encounter Plan of [...] region documented in this encounter Care Teams Campus Security Officer Relationship Specialty [place] [address] [place] [address] Rheumatology 02/21/17 Lashay Downs, GAY Registered Nurse Pain Management 06/17/17 Duke Do, RN Registered Nurse 09/09/17 Ngozi Petty MD Radiation Oncologist Radiation Oncology 02/05/19 Jose Roberto Marx MD Referring Physician Otolaryngology 02/05/19 documented as of this encounter
--- OUTSIDE RECORDS SUMMARY | 2024-06-14 23:30 | XMS_ITS | Encounter Summary ---
Author Organization [facility] Healthcare Address [address] [place] [address] Care Team Providers Care Configuration Management Architect Name Role Phone Criss Blanco MD Unavailable Lashay Downs RN Unavailable Unavailab Duke Goodwin RN Unavailable UnavailNgozi Husain MD Unavailable [phone] Jose Roberto Marx MD Unavailable [phone] Encounter Details Date Type Department Care Team (Late st Contact Info) Description 04/18/2020 2:45 PM CART DRIVER - 04/18/2020 3:10 PM CART DRIVER Surgery [facility] Operating Room [address] [place] [address] Nathanael Valdez MD [address] [place] [address] Flexible Laryngoscopy with KTP laser photoablation Surgery Details Date/Time Status Location OR Service Patient Class Case Class Case Type Trauma Case? 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 on file Not on natalie e documented as of this encounter Last Filed Vital Signs Vital Sign Reading Time Taken Comments Blood Pressure 135/86 04/18/2020 2:58 PM CART DRIVER Pulse 67 04/18/2020 2:58 PM CART DRIVER Temperature 36.5 ??C (97.7 ??F) 04/18/2020 2:50 PM CS T Respiratory Rate 20 04/18/2020 2:54 PM CART DRIVER Oxygen Saturation 97% 04/18/2020 2:58 PM CART DRIVER Inhaled Oxygen Concentration - - Weight - [...] Nathanael Valdez MD at 04/18/2020 2:52 PM CART DRIVER DRIVER DRIVER Source Note - Nathanael Valdez MD - 04/08/2020 9:00 AM CART DRIVER PATIENT NAME: Samuel Sanchez : 1945 DOS: 04/08/2020 REFERRING PHYSICIAN: ZOILA Kuo CHIEF COMPLAINT: Chief Complaint Patient presents with ??? Follow-up larynx cancer INTERVAL HISTORY: Samuel Sanchez is a 74 y.o. 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 He is doing [...] Not enlarged, swollen or pale. Mouth/Throat: Lips: [place]. No lesions. Mouth: Mucous membranes are moist. [...] follow-ups on file. Nathanael Valdez MD, FACS Steeping Press Tender [facility] Division of Laryngology Department of Otolaryngology--Head & Neck Surgery Portions of this note were dictated using M*Modal Fluency Direct. Trimmer And Reinforcer variances may occur. DRIVER documented in this encounter Miscellaneous Notes * [...] participated in the entirety of the procedure DRIVER documented in this encounter Plan of Treatment Not on file documented as of this encounter Procedures Procedure Name Priority Date/Time Associated Diagnosis Comments LASER KTP 04/18/2020 2:39 PM CART DRIVER Squamous cell carcinoma of larynx (CMS/HCC) Special [...] at 1442, Intra-Op Given 04/18/2020 2:42 PM CART DRIVER 10 mL Surgical Site oxymetazoline (AFRIN) 0.05 % nasal spray As needed, Starting on 04/18/20 at 1443, Intra-Op Given 04/18/2020 2:43 PM CART DRIVER 2 sprays documented in this encounter Active and Recently Administered Medications Times are shown in CART DRIVER. PRN Medication Order 04/16/2020 04/17/2020 04/18/2020 lidocaine [...] 04/18/2020 documented in this encounter Care Teams Configuration Management Architect Relationship Specialty [place] [address] [facility] [address] [place] [address] Rheumatology 02/21/17 Lashay Downs, RN Registered Nurse Pain Management 06/17/17 Duke Do, RN Registered Nurse 09/09/17 Ngozi Petty MD Radiation Oncologist Radiation Oncology 02/05/19 Jose Roberto Marx MD Referring Physician Otolaryngology 02/05/19 documented as of this encounter
--- OUTSIDE RECORDS SUMMARY | 2024-06-14 23:30 | XMS_ITS | Encounter Summary ---
Author Organization [facility] Healthcare Address [address] [place] [address] Care Team Providers Care Data Entry Coordinator Name Role Phone Criss Blanco MD Unavailable Lashay Downs RN Unavailable Unavailab Duke Goodwin RN Unavailable UnavailNgozi Husain MD Unavailable [phone] Jose Roberto Marx MD Unavailable [phone] Encounter Details Date Type Department Care Team (Late st Contact Info) Description 07/23/2019 10:59 AM PERSONALIZED LIVING MANAGER Hospital Encounter [facility] OP INTERIM Anjel Caballero MD [facility] [address] [address] Social History Tobacco Use Types Packs/Day Years [...] on file Legal Sex Male 12:56 AM PERSONALIZED LIVING MANAGER Gender Identity Not on file Sexual [...] ABDOMEN AP 1 VIEW 07/23/2019 11:02 AM PERSONALIZED LIVING MANAGER documented in this encounter Results * XR Abdomen Ap 1 Vw (07/23/2019 11:02 AM PERSONALIZED LIVING MANAGER) Anatomical Region Laterality Modality Body, Abdomen N/A Radiographic Corin ging 07/25/2019 1:16 AM PERSONALIZED LIVING MANAGER Narrative 07/25/2019 1:18 AM PERSONALIZED LIVING MANAGER Patient Name: SAMUEL HUFFMAN ?Ordering Dr: Anjel Caballero MD ?? D.O.B: 1945 ? Exam Date: 02/20/20 ?? 1102 ?? Age: 74 ?Sex: Male ? MR#: [id number] ?? Loc: ? RADIOLOGY REPORT ?? Order #[id number] ?? Radiology ? Abdomen 1 View ? [...] 1:18 AM ?? T: ? Report ID: [id number] ?? Reading Location: ??[id number] ? REPORT ELECTRONICALLY SIGNED IN OTHER VENDOR SYSTEM ?? Resulting Agency Comment O Procedure Note Scotty Hunt MD - 07/25/2019 Patient Name: SAMUEL HUFFMANOrdering Dr: Anjel Caballero MD D.O.B: 1945 Exam Date: 07/23/19 1102 Age: 74 Sex: Male MR#: [id number] Loc: RADIOLOGY REPORT Order #[id number] Radiology Abdomen 1 View Signed EXAM DESCRIPTION: [...] signed by Scotty CALVO T: Report ID: [id number] Reading Location: [id number] REPORT ELECTRONICALLY SIGNED IN OTHER VENDOR SYSTEM us Anjel Caballero MD IMG XR PROCEDURES Mariaa l Result documented in this encounter Visit Diagnoses Not on filedocumented in this encounter Care Teams Data Entry Coordinator Relationship Specialty [place] [address] [facility] [address] [place] [address] Rheumatology 02/21/17 Lashay Downs, RN Registered Nurse Pain Management 06/17/17 Duke Do, RN Registered Nurse 09/09/17 Ngozi Petty MD Radiation Oncologist Radiation Oncology 02/05/19 Jose Roberto Marx MD Referring Physician Otolaryngology 02/05/19 documented as of this encounter
--- OUTSIDE RECORDS SUMMARY | 2024-06-14 23:30 | XMS_ITS | Encounter Summary ---
Author Organization [facility] Healthcare Address [address] [place] [address] Care Team Providers Care Youth Ministry Director Name Role Phone Criss Blanco MD Unavailable Lashay Downs RN Unavailable Unavailab Duke Goodwin RN Unavailable UnavailNgozi Husain MD Unavailable [phone] Jose Roberto Marx MD Unavailable [phone] Reason for Referral * (Routine) - Closed Specialty Diagnoses / Procedures Referred By Contac t Referred To Contact Diagnoses Renal stones Procedures ECG 12 lead Viraj Stuart MD [address] [address] Phone: tel: fax: [address] [phone] Referral ID Status Reason Start Date Expiration Date Visits Re quested Visits Authorized [id number] Closed 06/20/2020 07/20/2021 1 1 TE ADVISOR Reason for Visit * (Routine) - Closed Specialty Diagnoses / Procedures Referred By Contac t Referred To Contact Diagnoses Renal stones Procedures ECG 12 lead Viraj Stuart MD [address] [address] Phone: tel: fax: [address] [phone] Referral ID Status Reason Start Date Expiration Date Visits Re quested Visits Authorized [id number] Closed 06/20/2020 07/20/2021 1 1 Encounter Details Date Type Department Care Team (Latest Contact Info) Description 06/20/2020 12:00 PM REMOTE ADVISOR - 06/20/2020 11:59 PM REMOTE ADVISOR Hospital Encounter [facility] Cardiology [address] [place] [address] Viraj Stuart MD [address] DE[address] [place] [address] Renal stones Discharge Disposition: Discharge to home [...] on file Legal Sex Male 12:56 AM REMOTE ADVISOR Gender Identity Not on file Sexual [...] Comments ECG 12-LEAD Routine 06/20/2020 12:18 PM REMOTE ADVISOR Renal stones documented in this encounter Results * ECG 12 lead (06/20/2020 12:18 PM REMOTE ADVISOR) 06/20/2020 12:1 5 PM REMOTE ADVISOR Narrative [facility] - 06/20/2020 1:10 PM REMOTE ADVISOR Vent Rate: 82 bpm RR Interval: 731 msec HI Interval: 175 msec QRS Duration: 95 msec QT Interval: 384 msec QTC Interval: 422 msec P-R-T [place]: 68 - 3 - 68 degrees SINUS RHYTHM WITH OCCASIONAL VENTRICULAR PREMATURE COMPLEXES POSSIBLE LEFT ATRIAL ENLARGEMENT ??[-0.1mV P WAVE IN V1/V2] BORDERLINE ECG Compared to prior EKG, rate is now faster and PVCs are new. Electronically Signed By: Dr Chidi Rhodes Viraj Stuart MD ECG ORDERABLES Final Result [facility] documented in this encounter Visit Diagnoses Diagnosis Renal stones documented in this encounter Care Teams Youth Ministry Director Relationship Specialty [place] [address] [facility] [address] [place] [address] Rheumatology 02/21/17 Lashay Downs, RN Registered Nurse Pain Management 06/17/17 Duke Do, RN Registered Nurse 09/09/17 Ngozi Petty MD Radiation Oncologist Radiation Oncology 02/05/19 Jose Roberto Marx MD Referring Physician Otolaryngology 02/05/19 documented as of this encounter
--- OUTSIDE RECORDS SUMMARY | 2024-06-14 23:30 | XMS_ITS | Encounter Summary ---
Author Organization [facility] Address [address] [place] [address] Phone Care Team Providers Care Plate Cleaner Name Role Phone Criss Blanco MD Unavailable Lashay Downs RN Unavailable Unavailab Duke Goodwin RN Unavailable UnavailNgozi Husain MD Unavailable [phone] Jose Roberto Marx MD Unavailable [phone] Reason for Referral * Diagnostic Imaging (Routine) - Closed Specialty Diagnoses / Procedures Referred By Contac t Referred To Contact Diagnoses Lumbar spondylosis Procedures XR Scoliosis 4 or 5 Views Samuel Finley MD Phone: tel: fax: [facility] Referral ID Status Reason Start Date Expiration Date Visits Re quested Visits Authorized [id number] Closed 06/15/2020 07/15/2021 1 1 WRECKER Reason for Visit * Reason Comments New Patient * Consultation (Routine) - Closed Specialty Diagnoses / Procedures Referred By Contac t Referred To Contact Orthopedic Surgery Diagnoses Spine pain Viraj Romeo, ZOILA [address] [place] [address] Phone: tel: fax: [facility] (All Locations) Referral ID Status Reason Start Date Expiration Date V isits Requested Visits Authorized [id number] Closed Specialty Services Required 06/23/2020 12/20/2020 1 1 Encounter Details Date Type Department Care Team (Late st Contact Info) Description 06/21/2020 2:30 PM CAR WRECKER Office Visit [facility] Orthopaedic Surgery [address] [facility] [address] [place] [address] [place] [address] Samuel Finley MD [address] [facility] [address] [place] [address] Lumbar spondylosis (Primary Dx); Spine pain; Chronic [...] on file Legal Sex Male 12:56 AM CAR WRECKER Gender Identity Not on file Sexual Orientation [...] 95.3 kg (210 lb) 06/21/2020 2:05 PM CAR WRECKER Height 185.4 cm (6' 1 ) 06/21/2020 2:05 PM CAR WRECKER Body Mass Index 27.71 06/21/2020 2:05 PM CAR WRECKER documented in this encounter Progress Notes * [...] OTHER MEDICAL hemorroids; Comments: [facility] [place] [facility] HX OTHER MEDICAL bladder infection ??? [...] Deltoid Biceps Triceps Wrist Extension Wrist Flexion Welding Machine Operator Helper Arc Right 5 5 5 5 5 5 [...] joint injection or radiofrequency ablation. FOLLOW-UP: RACHEL Chandra MD [facility] Spine Cosigned by Samuel Finley MD at 06/21/2020 3:29 PM CAR WRECKER WRECKER WRECKER Associated attestation - Samuel Finley MD - 06/21/2020 3:29 PM CAR WRECKER I have seen and examined the patient. [...] 4 or 5 Views (06/21/2020 12:42 PM CAR WRECKER) Anatomical Region Laterality Modality Spine N/A Computed Radiogr aphy 06/21/2020 1:07 PM CAR WRECKER Impressions 06/21/2020 1:07 PM CAR WRECKER 1. 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 2. Mild rightward coronal truncal imbalance. No sagittal imbalance or pelvic obliquity. Electronically signed by: Sriram Rosa M.D. Narrative 06/21/2020 1:07 PM CAR WRECKER EXAMINATION: XR SCOLIOSIS 4 OR 5 VW [...] 2020 documented in this encounter Care Teams Plate Cleaner Relationship Specialty [place] [address] [facility] [address] [place] [address] Rheumatology 02/21/17 Lashay Downs, RN Registered Nurse Pain Management 06/17/17 Duke Do, RN Registered Nurse 09/09/17 Ngozi Petty MD Radiation Oncologist Radiation Oncology 02/05/19 Jose Roberto Marx MD Referring Physician Otolaryngology 02/05/19 documented as of this encounter
--- OUTSIDE RECORDS SUMMARY | 2024-06-14 23:30 | XMS_ITS | Encounter Summary ---
Author Organization [facility] Address [address] [place] [address] Phone Care Team Providers Care Desulphuring Operator Name Role Phone Criss Blanco MD Unavailable Lashay Downs RN Unavailable Unavailab Duke Goodwin RN Unavailable UnavailNgozi Husain MD Unavailable [phone] Jose Roberto Marx MD Unavailable [phone] Reason for Visit * (Routine) - Closed Specialty Diagnoses / Procedures Referred By Alcira forrest Referred To Contact Diagnoses Dysphonia Procedures FNPS videostroboscopy - Nathanael Valdez MD Phone: tel: fax: [facility] (All Locations) Referral ID Status Reason Start Date Expiration Date Visits Re quested Visits Authorized [id number] Closed 12/07/2019 06/17/2021 1 1 Encounter Details Date Type Department Care Team (Late st Contact Info) Description 12/08/2019 2:20 PM CDT Therapy 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 on file Not on natalie e documented as of this encounter Plan of Treatment Not on file documented as of this encounter Visit Diagnoses Diagnosis Dysphonia documented in this encounter Orders FNPS Count Last Ordered Date First Orde red Date FNPS VIDEOSTROBOSCOPY 1 12/08/2019 documented in this encounter Care Teams Desulphuring Operator Relationship Specialty [place] [address] [facility] [address] [place] [address] Rheumatology 02/21/17 Lashay Downs, RN Registered Nurse Pain Management 06/17/17 Duke Do, RN Registered Nurse 09/09/17 Ngozi Petty MD Radiation Oncologist Radiation Oncology 02/05/19 Jose Roberto Marx MD Referring Physician Otolaryngology 02/05/19 documented as of this encounter
--- OUTSIDE RECORDS SUMMARY | 2024-06-14 23:30 | XMS_ITS | Encounter Summary ---
Author Organization [facility] Address [address] [place] [address] Phone Care Team Providers Care Parenting Skills Instructor Name Role Phone Criss Blanco MD Unavailable Lashay Downs RN Unavailable Unavailab Duke Goodwin RN Unavailable UnavailNgozi Husain MD Unavailable [phone] Jose Roberto Marx MD Unavailable [phone] Reason for Visit * Reason Comments Follow-up squamous cell carcin maricruz of larynx Encounter Details Date Type Department Care Team (Late st Contact Info) Description 12/08/2019 2:20 PM CDT Office Visit [facility] ENT [address] [facility] Medical Office Building [address] [place] [address] Nathanael Valdez MD [address] [place] [address] 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 He continues [...] Not enlarged, swollen or pale. Mouth/Throat: Lips: [place]. No lesions. Mouth: Mucous membranes are moist. [...] up with video. Nathanael Valdez MD, FACS Straight Pin Making Machine Operator [facility] Division of Laryngology Department of Otolaryngology--Head & Neck Surgery Portions of this note were dictated using M*Modal Fluency Direct. Environmental Studies Faculty Member variances may occur. I have seen and [...] reflect changes made after this encounter. vit C,C-Xx-pnxnk-lute in-zeaxan 871-284-20-1 so-sobd-vt-mg capsule Take by mouth 04/08/2020 added in this encounter Care Teams Parenting Skills Instructor Relationship Specialty [place] [address] [facility] [address] [place] [address] Rheumatology 02/21/17 Lashay Downs, RN Registered Nurse Pain Management 06/17/17 Duke Do, RN Registered Nurse 09/09/17 Ngozi Petty MD Radiation Oncologist Radiation Oncology 02/05/19 Jose Roberto Marx MD Referring Physician Otolaryngology 02/05/19 documented as of this encounter
--- OUTSIDE RECORDS SUMMARY | 2024-06-14 23:30 | XMS_ITS | Encounter Summary ---
Author Organization [facility] Address [address] [place] [address] Phone Care Team Providers Care Sausage Maker Name Role Phone Criss Blanco MD Unavailable Lashay Downs RN Unavailable Unavailab Duke Goodwin RN Unavailable UnavailNgozi Husain MD Unavailable [phone] Jose Roberto Marx MD Unavailable [phone] Reason for Visit * Reason Comments Follow-up larynx cancer Encounter Details Date Type Department Care Team (Late st Contact Info) Description 04/08/2020 9:00 AM THREAD ROLLER Office Visit [facility] ENT [address] [facility] Medical Office Building [address] [place] [address] Nathanael Valdez MD [address] [place] [address] 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 He is doing [...] Not enlarged, swollen or pale. Mouth/Throat: Lips: [place]. No lesions. Mouth: Mucous membranes are moist. [...] follow-ups on file. Nathanael Valdez MD, FACS Branch Service Associate [facility] Division of Laryngology Department of Otolaryngology--Head & Neck Surgery Portions of this note were dictated using M*Modal Fluency Direct. Lunch Cook variances may occur. AD ROLLER documented in this encounter Miscellaneous Notes * Assessment & Plan Note - Nathanael Valdez MD - 04/08/2020 9:15 AM THREAD ROLLER Associated Problem(s): Squamous cell carcinoma of larynx [...] should really consider the possibility of radiation. AD ROLLER documented in this encounter Plan of Treatment [...] by mouth daily as needed 04/08/2020 vit C,V-Ll-thqso-lutein-zeax an 195-005-02-1 ab-nbom-oj-mg capsule Take by mouth 04/08/2020 documented as [...] 02/01/2023 added in this encounter Care Teams Sausage Maker Relationship Specialty [place] [address] [facility] [address] [place] [address] Rheumatology 02/21/17 Lashay Downs, RN Registered Nurse Pain Management 06/17/17 Duke Do, RN Registered Nurse 09/09/17 Ngozi Petty MD Radiation Oncologist Radiation Oncology 02/05/19 Jose Roberto Marx MD Referring Physician Otolaryngology 02/05/19 documented as of this encounter
--- OUTSIDE RECORDS SUMMARY | 2024-06-14 23:30 | XMS_ITS | Encounter Summary ---
Author Organization [facility] Address [address] [place] [address] Phone Care Team Providers Care Cnc Applications Engineer Name Role Phone Criss Blanco MD Unavailable Lashay Downs RN Unavailable Unavailab Duke Goodwin RN Unavailable UnavailNgozi Husain MD Unavailable [phone] Jose Roberto Marx MD Unavailable [phone] Reason for Referral * Consultation (Routine) - Closed Specialty Diagnoses / Procedures Referred By Conthermila t Referred To Contact Pain Management Diagnoses Chronic midline low back pain without sciatica Lumbar spondylosis Spine pain Samuel Finley MD Phone: tel: fax: Kaykay Reyes MD [address] [facility] [address] [place] [address] Phone: tel: fax: Referral ID Status Reason Start Date Expiration Date V isits Requested Visits Authorized [id number] Closed Specialty Services Required 06/22/2020 12/26/2020 12 12 Question Answer Please select the performing region: [facility] [[id number]] To provider: KAYKAY REYES [[id number]] # of visits: 1 Comments Treatment and evaluation for consideration of facet joint injections and RFA. Please call patient to schedule an appointment. 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
--- OUTSIDE RECORDS SUMMARY | 2024-06-14 23:30 | XMS_ITS | Encounter Summary ---
Author Organization [facility] Address [address] [place] [address] Phone Care Team Providers Care Watch Train Inspector Name Role Phone Criss Blanco MD Unavailable Lashay Downs RN Unavailable Unavailab Duke Goodwin RN Unavailable UnavailNgozi Husain MD Unavailable [phone] Jose Roberto Marx MD Unavailable [phone] Reason for Visit * Reason Onset Date Comments Appointment 03/14/2020 Encounter Details Date Type Department Care Team (Late st Contact Info) Description 03/14/2020 Telephone [facility] ENT [address] [facility] Medical Office Building [address] [place] [address] Marisol Madrid, GAY Appointment Social [...] on file Legal Sex Male 12:56 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
--- OUTSIDE RECORDS SUMMARY | 2024-06-14 23:30 | XMS_ITS | Encounter Summary ---
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 on file Not on natalie e documented as of this encounter Plan of Treatment Not on file documented as of this encounter Visit Diagnoses Not on filedocumented in this encounter Care Teams Electrical Controls Assembler Relationship Specialty [place] [address] [facility] [address] [place] [address] Rheumatology 02/21/17 Lashay Downs, RN Registered Nurse Pain Management 06/17/17 Duke Do, RN Registered Nurse 09/09/17 Ngozi Petty MD Radiation Oncologist Radiation Oncology 02/05/19 Jose Roberto Marx MD Referring Physician Otolaryngology 02/05/19 documented as of this encounter
--- OUTSIDE RECORDS SUMMARY | 2024-06-14 23:30 | XMS_ITS | Encounter Summary ---
Author Organization [facility] Healthcare Address [address] [place] [address] Care Team Providers Care Mule Operator Name Role Phone Criss Blanco MD Unavailable Lashay Downs RN Unavailable Unavailab Duke Goodwin RN Unavailable UnavailNgozi Husain MD Unavailable [phone] Jose Roberto Marx MD Unavailable [phone] Encounter Details Date Type Department Care Team (Late st Contact Info) Description 04/15/2020 1:25 PM CHIEF METER READER Lab [address] [address] Nathanael Valdez MD [address] [place] [address] Pre-procedure lab exam Discharge Disposition: Discharge to [...] file Legal Sex Male 12:56 AM CHIEF METER READER Gender Identity Not on file Sexual Orientation [...] COVID-19 CORONAVIRUS RNA Routine 04/15/2020 1:24 PM CHIEF METER READER Pre-procedure lab exam documented in this encounter Results * COVID-19 Coronavirus RNA Nasopharyngeal (04/15/2020 1:24 PM CHIEF METER READER) COVID-19 RNA Not Detected [facility] (BRE) Comment: Testing performed as [...] with COVID-19. Interpretive Data Testing performed at [facility]. The 2019-Novel Coronavirus [...] (BRE) Comment:Testing performed by : [facility], [address] [place] [address] Employeed in healthcare? Unknown [facility] (BRE) Comment:Testing performed by : [facility], [address] [place]., [address] status? No CE [facility] (BRE) Comment:Testing performed by : [facility], [address] [place]., [address] Group care resident? Unknown [facility] (BRE) Comment:Testing performed by : [facility], [address] [place]., [address] Hospitalized? Unknown ANDRE MORAES (BRE) Comment:Testing performed by : [facility], [address] [facility], [address] Is patient in ICU? Unknown ANDRE MORAES (BRE) Comment:Testing performed by : [facility], [address] [place]., [address] Symptomatic as defined by CDC? No ANDRE MORAES (BRE) Comment:Testing performed by : [facility], [address] [place] [address], [address] Nasopharyngeal 04/15/2020 1: 24 PM CHIEF METER READER 04/16/2020 12:35 AM CHIEF METER READER Narrative ANDRE MORAES (BRE) - 04/16/2020 3:36 PM CHIEF METER READER What is the reason for testing?->Screening prior to scheduled procedure or surgery Nathanael Valdez MD LAB MICROBIOLOGY - GENERA L ORDERABLES Final Result ANDRE MORAES (BRE) 1 [facility] [place] [address] documented in this encounter Visit Diagnoses Diagnosis Pre-procedure lab exam Pre-procedural laboratory examination documented in this encounter Care Teams Mule Operator Relationship Specialty [place] [address] [facility] [address] [place] [address] Rheumatology 02/21/17 Lashay Downs, GAY Registered Nurse Pain Management 06/17/17 Duke Do, RN Registered Nurse 09/09/17 Ngozi Petty MD Radiation Oncologist Radiation Oncology 02/05/19 Jose Roberto Marx MD Referring Physician Otolaryngology 02/05/19 documented as of this encounter
--- OUTSIDE RECORDS SUMMARY | 2024-06-14 23:30 | XMS_ITS | Encounter Summary ---
Author Organization [facility] Healthcare Address [address] [place] [address] Care Team Providers Care Rn Nursery Name Role Phone Criss Blanco MD Unavailable Lashay Downs RN Unavailable Unavailab Duke Goodwin RN Unavailable UnavailNgozi Husain MD Unavailable [phone] Jose Roberto Marx MD Unavailable [phone] Reason for Referral * Diagnostic Imaging (Routine) - Closed Specialty Diagnoses / Procedures Referred By Contac t Referred To Contact Diagnoses Lumbar spondylosis Procedures XR Scoliosis 4 or 5 Views Samuel Finley MD Phone: tel: fax: [facility] Referral ID Status Reason Start Date Expiration Date Visits Re quested Visits Authorized [id number] Closed 06/15/2020 07/15/2021 1 1 RONMENTAL HEALTH AND SAFETY MANAGER Reason for Visit * Diagnostic Imaging (Routine) - Closed Specialty Diagnoses / Procedures Referred By Contac t Referred To Contact Diagnoses Lumbar spondylosis Procedures XR Scoliosis 4 or 5 Views Samuel Finley MD Phone: tel: fax: [facility] Referral ID Status Reason Start Date Expiration Date Visits Re quested Visits Authorized [id number] Closed 06/15/2020 07/15/2021 1 1 Encounter Details Date Type Department Care Team (Latest Contact Info) Description 06/21/2020 12:26 PM ENVIRONMENTAL HEALTH AND SAFETY MANAGER - 06/21/2020 11:59 PM ENVIRONMENTAL HEALTH AND SAFETY MANAGER Hospital Encounter [facility] Rad[facility] [address] [place] [address] Samuel Finley MD [address] [facility] [address] [place] [address] Lumbar spondylosis Discharge Disposition: Discharge to home [...] on file Legal Sex Male 12:56 AM ENVIRONMENTAL HEALTH AND SAFETY MANAGER Gender Identity Not on file Sexual [...] Read Routine (OP Routine) 06/21/2020 12:42 PM ENVIRONMENTAL HEALTH AND SAFETY MANAGER Lumbar spondylosis documented in this encounter Results * XR Scoliosis 4 or 5 Views (06/21/2020 12:42 PM ENVIRONMENTAL HEALTH AND SAFETY MANAGER) Anatomical Region Laterality Modality Spine N/A Computed Radiogr aphy 06/21/2020 1:07 PM ENVIRONMENTAL HEALTH AND SAFETY MANAGER Impressions 06/21/2020 1:07 PM ENVIRONMENTAL HEALTH AND SAFETY MANAGER 1. 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 2. Mild rightward coronal truncal imbalance. No sagittal imbalance or pelvic obliquity. Electronically signed by: Sriram Rosa M.D. Narrative 06/21/2020 1:07 PM ENVIRONMENTAL HEALTH AND SAFETY MANAGER EXAMINATION: XR SCOLIOSIS 4 OR 5 VW [...] myelopathy documented in this encounter Care Teams Rn Nursery Relationship Specialty [place] [address] [facility] [address] [place] [address] Rheumatology 02/21/17 Lashay Downs, RN Registered Nurse Pain Management 06/17/17 Duke Do, RN Registered Nurse 09/09/17 Ngozi Petty MD Radiation Oncologist Radiation Oncology 02/05/19 Jose Roberto Marx MD Referring Physician Otolaryngology 02/05/19 documented as of this encounter
--- OUTSIDE RECORDS SUMMARY | 2024-06-14 23:30 | XMS_ITS | Encounter Summary ---
Author Organization [facility] Address [address] [facility] [address] [place] [address] Care Team Providers Care Escapement Matcher Name Role Phone Criss Blanco MD Unavailable Lashay Downs RN Unavailable Unavailab Duke Goodwin RN Unavailable UnavailNgozi Husain MD Unavailable [phone] Jose Roberto Marx MD Unavailable [phone] Encounter Details Date Type Department Care Team (Late st Contact Info) Description 04/10/2020 Orders Only [facility] Testing Site - [address] [place] [address] Nathanael Valdez MD [address] [place] [address] Pre-procedure lab exam (Primary Dx) Social History [...] on file Legal Sex Male 12:56 AM PROMOTION SPECIALIST Gender Identity Not on file Sexual Orientation Not on file 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 Testing Site: [facility] [address] [place] [address] [place] [address] Hours: ??? M-F 7am-4pm ??? Sa 7am-12pm Pt wants [facility] location Order Specific Questions Question Answer [...] No ?? Please select the performing region: [facility] Medical Group OTION SPECIALIST documented in this encounter Plan of Treatment Not on file documented as of this encounter Results * COVID-19 Coronavirus RNA Nasopharyngeal (04/15/2020 1:24 PM PROMOTION SPECIALIST) COVID-19 RNA Not Detected [facility] Comment: Testing performed as a component of [...] with COVID-19. Interpretive Data Testing performed at [facility] Molecular Infectious Disease Laboratory. The Novel Coronavirus [...] [facility] (BRE) Comment:Testing performed by : [facility], [address] [place] [address], [address] Employeed in healthcare? Unknown [facility] (BRE) Comment:Testing performed by : [facility], [address] [place] [address], [address] status? No [facility] (BRE) Comment:Testing performed by : [facility], [address] [facility] [place], [address] Group care resident? Unknown [facility] (BRE) Comment:Testing performed by : [facility], [address] [place] [address], [address] Hospitalized? Unknown [facility] (BRE) Comment:Testing performed by : [facility], [address] [facility] [place], [address] Is patient in ICU? Unknown [facility] (BRE) Comment:Testing performed by : [facility], [address] [place] [address], [address] Symptomatic as defined by CDC? No [facility] (BRE) Comment:Testing performed by : [facility], [address] [place] [address], [address] Nasopharyngeal 04/15/2020 1: 24 PM PROMOTION SPECIALIST 04/16/2020 12:35 AM PROMOTION SPECIALIST Narrative ANDRE MORAES (BRE) - 04/16/2020 3:36 PM PROMOTION SPECIALIST What is the reason for testing?->Screening prior to scheduled procedure or surgery us Nathanael Valdez MD LAB MICROBIOLOGY - GENERA L ORDERABLES Final Result ANDRE MORAES (BRE) 1 [facility] Department [place] [address] documented in this encounter Visit Diagnoses Diagnosis Pre-procedure lab exam- Primary Pre-procedural laboratory examination Pre-procedure lab exam Pre-procedural laboratory examination documented in this encounter Care Teams Escapement Matcher Relationship Specialty [place] [address] [facility] [address] [place] [address] Rheumatology 02/21/17 Lashay Downs, RN Registered Nurse Pain Management 06/17/17 Duke Do, RN Registered Nurse 09/09/17 Ngozi Petty MD Radiation Oncologist Radiation Oncology 02/05/19 Jose Roberto Marx MD Referring Physician Otolaryngology 02/05/19 documented as of this encounter
--- OUTSIDE RECORDS SUMMARY | 2024-06-14 23:30 | XMS_ITS | Encounter Summary ---
Author Organization [facility] Address [address] [place] [address] Phone Care Team Providers Care Ironworker Apprentice Name Role Phone Criss Blanco MD Unavailable Lashay Dowsn RN Unavailable Unavailab Duke Goodwin RN Unavailable UnavailNgozi Husain MD Unavailable [phone] Jose Roberto Marx MD Unavailable [phone] Reason for Referral * (Routine) - Closed Specialty Diagnoses / Procedures Referred By Alcira forrest Referred To Contact Diagnoses Dysphonia Procedures PLATE EMBOSSER videostroboscopy - Nathanael Valdez MD Phone: tel: fax: [facility] (All Locations) Referral ID Status Reason Start Date Expiration Date Visits Re quested Visits Authorized [id number] Closed 12/07/2019 06/17/2021 1 1 Encounter Details Date Type Department Care Team (Late st Contact Info) Description 12/07/2019 Orders Only [facility] ENT [address] [facility] Medical Office Building [address] [place] [address] Nathanael Valdez MD [address] [place] [address] Dysphonia (Primary Dx) Social History Tobacco Use [...] on file 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 [address] [place] [address] Rheumatology 02/21/17 Lashay Downs, RN Registered Nurse Pain Management 06/17/17 Duke Do, RN Registered Nurse 09/09/17 Ngozi Petty MD Radiation Oncologist Radiation Oncology 02/05/19 Jose Roberto Marx MD Referring Physician Otolaryngology 02/05/19 documented as of this encounter
--- OUTSIDE RECORDS SUMMARY | 2024-06-14 23:30 | XMS_ITS | Encounter Summary ---
Author Organization [facility] Address [address] [place] [address] Phone Care Team Providers Care Clinical Practice Consultant Name Role Phone Criss Blanco MD Unavailable Lashay Downs RN Unavailable Unavailab Duke Goodwin RN Unavailable UnavailNgozi Husain MD Unavailable [phone] Jose Roberto Marx MD Unavailable [phone] Reason for Visit * Reason Onset Date Comments new pt appt 05/25/2020 Encounter Details Date Type Department Care Team (Late st Contact Info) Description 05/25/2020 Telephone [facility] Orthopaedic Surgery [facility] Advanced Medicine 6th [place] [address] [place] [address] Samuel Finley MD [address] [facility] [address] [place] [address] new pt appt Social History Tobacco Use [...] file Legal Sex Male 12:56 AM NUCLEAR PHYSICIAN Gender Identity Not on file Sexual Orientation [...] IN THE PAST. HE WAS EVALUATED AT [facility] AND TOLD THAT HE WAS NOT A SURGICAL CANDIDATE. SINCE THEN HE HAS TRIED TO CONTACT SOMEONE THERE BUT HE STATES THAT THEY NEVER RETURN HIS CALLS. [facility] HAS OK'D THIS APPT. PATIENT HAS BEENSCHEDULED. PATIENT VERBALIZES UNDERSTANDING. EAR PHYSICIAN documented in this encounter Plan of Treatment Not on file documented as of this encounter Visit Diagnoses Not on filedocumented in this encounter Care Teams Clinical Practice Consultant Relationship Specialty [place] [address] [facility] [address] [place] [address] Rheumatology 02/21/17 Lashay Downs, RN Registered Nurse Pain Management 06/17/17 Duke Do, RN Registered Nurse 09/09/17 Ngozi Petty MD Radiation Oncologist Radiation Oncology 02/05/19 Jose Roberto Marx MD Referring Physician Otolaryngology 02/05/19 documented as of this encounter
--- OUTSIDE RECORDS SUMMARY | 2024-06-14 23:30 | XMS_ITS | Encounter Summary ---
Author Organization [facility] Healthcare Address [address] [place] [address] Care Team Providers Care Machine Printer Name Role Phone Criss Blanco MD Unavailable Lashay Downs RN Unavailable Unavailab Duke Goodwin RN Unavailable UnavailNgozi Husain MD Unavailable [phone] Jose Roberto Marx MD Unavailable [phone] Encounter Details Date Type Department Care Team (Late st Contact Info) Description 04/18/2020 2:39 PM LANGUAGE PATH Anesthesia Event 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
--- OUTSIDE RECORDS SUMMARY | 2024-06-14 23:30 | XMS_ITS | Encounter Summary ---
Author Organization [facility] Healthcare Address [address] [place] [address] Care Team Providers Care Browning Processor Name Role Phone Criss Blanco MD Unavailable Lashay Downs RN Unavailable Unavailab Duke Goodwin RN Unavailable UnavailNgozi Husain MD Unavailable [phone] Jose Roberto Marx MD Unavailable [phone] Encounter Details Date Type Department Care Team (Late st Contact Info) Description 06/17/2020 2:20 PM POTASH FLAKER Lab [address] [address] Viraj Stuart MD [address] [place] [address] Discharge Disposition: Discharge to home or [...] on file Legal Sex Male 12:56 AM POTASH FLAKER Gender Identity Not on file Sexual Orientation [...] Diagnosis Comments APTT Routine 06/17/2020 2:25 PM POTASH FLAKER PROTIME-INR Routine 06/17/2020 2:25 PM POTASH FLAKER URINE CULTURE Routine 06/17/2020 2:25 PM POTASH FLAKER documented in this encounter Results * Urine culture Urine, clean voided (06/17/2020 2:25 PM POTASH FLAKER) Report Final Report: Less than 100,000 colonies/mL (clinically insignificant growth based on current clinical standards) ANDRE ANSARI) Comment:Testing performed by : [facility], [address] [place]., [address] Organism (CLINICALLY INSIGNIFICANT GROWTH ANDRE ANSARI) Urine, clean voided 06/17/2020 2:25 PM POTASH FLAKER 06/17/2020 7:57 PM POTASH FLAKER Narrative ANDRE ANSARI) - 06/19/2020 3:01 PM POTASH FLAKER Testing performed by [facility] ([phone]) Viraj Stuart MD LAB MICROBIOLOGY - GENERAL OR DERABLES Final Result ANDRE ANSARI) 1 [facility] Department [place] [address] * aPTT (06/17/2020 2:25 PM POTASH FLAKER) aPTT 31 25 - 37 sec ANDRE ANSARI) Comment: Interpretive data Heparin therapeutic range: 60-94 seconds Range based on correlation with therapeutic heparin activity range of 0.3-0.7 units/ml. Current interpretive data was last revised on 2019. Blood specimen (specimen) 06/17/2020 2:25 PM POTASH FLAKER 06/17/2020 2:45 PM POTASH FLAKER Viraj Stuart MD LAB BLOOD ORDERABLES Final Re sult Performing Organization Address [facility] Co de Phone Number ANDRE MORAES ([place]) 1 [facility] [employer] [address] * Protime-INR (06/17/2020 2:25 PM POTASH FLAKER) PT 12.4 9.5 - 13.0 sec [facility] ([place]) INR 1.1 0.9 - 1.2 [facility] ([place]) Comment: Interpretive data Oral anticoagulant therapeutic ranges: Venous thromboembolism prophylaxis or treatment: 2.0-3.0 CARDIOLOGY Standard range: 2.0-3.0 High-intensity range: 2.5-3.5 Refer to indication-specific guidelines for appropriate target ranges for prosthetic heart valve replacement. Current interpretive data was last revised on 2019. Blood specimen (specimen) 06/17/2020 2:25 PM POTASH FLAKER 06/17/2020 2:45 PM POTASH FLAKER Viraj Stuart MD LAB BLOOD ORDERABLES Final Re sult Performing Organization Address [facility] Co de Phone Number ANDRE MORAES ([place]) 1 [facility] [employer] [address] documented in this encounter Visit Diagnoses Not on filedocumented in this encounter Care Teams Browning Processor Relationship Specialty [place] [address] [address] Rheumatology 02/21/17 Lashay Downs, RN Registered Nurse Pain Management 06/17/17 Duke Do, RN Registered Nurse 09/09/17 Ngozi Petty MD Radiation Oncologist Radiation Oncology 02/05/19 Jose Roberto Marx MD Referring Physician Otolaryngology 02/05/19 documented as of this encounter
--- OUTSIDE RECORDS SUMMARY | 2024-06-14 23:30 | XMS_ITS | Encounter Summary ---
Author Organization [facility] Address [address] [place] [address] Phone Care Team Providers Care Bookmobile Librarian Name Role Phone Criss Blanco MD Unavailable Lashay Downs RN Unavailable Unavailab Duke Goodwin RN Unavailable UnavailNgozi Husain MD Unavailable [phone] Jose Roberto Marx MD Unavailable [phone] Encounter Details Date Type Department Care Team (Late st Contact Info) Description 09/30/2019 Orders Only [facility] ENT [address] [facility] Medical Office Building [address] [place] [address] Marisol Madrid RN Squamous cell [...] on file Legal 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
--- OUTSIDE RECORDS SUMMARY | 2024-06-14 23:30 | XMS_ITS | Encounter Summary ---
Author Organization [facility] Address [address] [place] [address] Phone Care Team Providers Care Divorce Mediator Name Role Phone Criss Blanco MD Unavailable Lashay Downs RN Unavailable Unavailab Duke Goodwin RN Unavailable UnavailNgozi Husain MD Unavailable [phone] Jose Roberto Marx MD Unavailable [phone] Reason for Visit * Reason Comments Post-op Encounter Details Date Type Department Care Team (Late st Contact Info) Description 06/23/2019 11:15 AM DIRECTOR AERONAUTICS COMMISSION Office Visit [facility] Otolaryngology [facility] [address] [place], [place] [address] [id number] Nathanael Valdez MD [facility] [place] [address] Squamous cell carcinoma of larynx (CMS/HCC) (Primary [...] file Legal Sex Male 12:56 AM DIRECTOR AERONAUTICS COMMISSION Gender Identity Not on file Sexual Orientation [...] who presents today 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 He is 1 [...] ear normal. Nose: Nose normal. Mouth/Throat: Lips: [place]. No lesions. Neck: Comments: His voice is [...] up with video. Nathanael Valdez MD, FACS Medical Donation Professional [facility] Division of Laryngology Department of Otolaryngology--Head & Neck Surgery Portions of this note were dictated using M*Modal Fluency Direct. Public Welfare Director variances may occur. 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 I would like to continue routine observation every 8 weeks. 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
--- OUTSIDE RECORDS SUMMARY | 2024-06-14 23:30 | XMS_ITS | Encounter Summary ---
Author Organization [facility] Healthcare Address [address] [place] [address] Care Team Providers Care Composer Teaching Artist Name Role Phone Criss Blanco MD Unavailable Lashay Downs RN Unavailable Unavailab Duke Goodwin RN Unavailable UnavailNgozi Husain MD Unavailable [phone] Jose Roberto Marx MD Unavailable [phone] Encounter Details Date Type Department Care Team (Latest Contact Info) Description 04/18/2020 1:18 PM FLIGHT TEST SUPERVISOR - 04/18/2020 3:01 PM FLIGHT TEST SUPERVISOR Hospital Encounter [facility] Operating Room [address] [place] [address] Nathanael Valdez MD [address] [place] [address] Discharge Disposition: Discharge to home or self [...] on file Legal Sex Male 12:56 AM FLIGHT TEST SUPERVISOR Gender Identity Not on file Sexual Orientation Not on file 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 Not on file Not on natalie e documented as of this encounter Last Filed Vital Signs Vital Sign Reading Time Taken Comments Blood Pressure 135/86 04/18/2020 2:58 PM FLIGHT TEST SUPERVISOR Pulse 67 04/18/2020 2:58 PM FLIGHT TEST SUPERVISOR Temperature 36.5 ??C (97.7 ??F) 04/18/2020 2:50 PM CS T Respiratory Rate 20 04/18/2020 2:54 PM FLIGHT TEST SUPERVISOR Oxygen Saturation 97% 04/18/2020 2:58 PM FLIGHT TEST SUPERVISOR Inhaled Oxygen Concentration - - Weight [...] Nathanael Valdez MD at 04/18/2020 2:52 PM FLIGHT TEST SUPERVISOR HT TEST SUPERVISOR HT TEST SUPERVISOR Source Note - Nathanael Valdez MD - 04/08/2020 9:00 AM FLIGHT TEST SUPERVISOR PATIENT NAME: Samuel Sanchez : 1945 DOS: 04/08/2020 REFERRING PHYSICIAN: ZOILA Kuo CHIEF COMPLAINT: Chief Complaint Patient presents with ??? Follow-up larynx cancer INTERVAL HISTORY: Samuel Sanchez is a 74 y.o. 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 He is doing [...] Not enlarged, swollen or pale. Mouth/Throat: Lips: [place]. No lesions. Mouth: Mucous membranes are moist. [...] follow-ups on file. Nathanael Valdez MD, FACS Coagulator [facility] Division of Laryngology Department of Otolaryngology--Head & Neck Surgery Portions of this note were dictated using M*Modal Fluency Direct. Chiropractor Assistant variances may occur. HT TEST SUPERVISOR documented in this encounter Miscellaneous Notes [...] participated in the entirety of the procedure HT TEST SUPERVISOR documented in this encounter Plan of Treatment Not on file documented as of this encounter Procedures Procedure Name Priority Date/Time Associated Diagnosis Comments LASER KTP 04/18/2020 2:39 PM FLIGHT TEST SUPERVISOR Squamous cell carcinoma of larynx (CMS/HCC) Special [...] Recently Administered Medications Times are shown in FLIGHT TEST SUPERVISOR. PRN Medication Order 04/16/2020 04/17/2020 04/18/2020 lidocaine [...] 04/18/2020 documented in this encounter Care Teams Composer Teaching Artist Relationship Specialty [place] [address] [facility] [address] [place] [address] Rheumatology 02/21/17 Lashay Downs, RN Registered Nurse Pain Management 06/17/17 Duke Do, RN Registered Nurse 09/09/17 Ngozi Petty MD Radiation Oncologist Radiation Oncology 02/05/19 Jose Roberto Marx MD Referring Physician Otolaryngology 02/05/19 documented as of this encounter
--- OUTSIDE RECORDS SUMMARY | 2024-06-14 23:30 | XMS_ITS | Encounter Summary ---
Author Organization [facility] Address [address] [place] [address] Phone Care Team Providers Care Breaking Machine Operator Name Role Phone Criss Blanco MD Unavailable Lashay Downs RN Unavailable Unavailab Duke Goodwin RN Unavailable UnavailNgozi Husain MD Unavailable Jose Roberto Marx MD Unavailable [phone] Encounter Details Date Type Department Care Team (Late st Contact Info) Description 08/14/2019 Orders Only [facility] Otolaryngology [address] [facility] [address] [place] [address] Nathanael Valdez MD [address] [place] [address] Squamous cell carcinoma of larynx (CMS/HCC) (Primary [...] on file Legal 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
--- OUTSIDE RECORDS SUMMARY | 2024-06-14 23:30 | XMS_ITS | Encounter Summary ---
Author Organization [facility] Address [address] [place] [address] Phone Care Team Providers Care Music Therapist Name Role Phone Criss Blanco MD Unavailable Lashay Downs RN Unavailable Unavailab Duke Goodwin RN Unavailable UnavailNgozi Husain MD Unavailable Jose Roberto Marx MD Unavailable [phone] Encounter Details Date Type Department Care Team (Late st Contact Info) Description 03/02/2020 Orders Only [facility] ENT [address] [facility] Medical Office Building [address] [place] [address] Nathanael Valdez MD [address] [place] [address] Squamous cell carcinoma of larynx [...] on file 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
--- OUTSIDE RECORDS SUMMARY | 2024-06-14 23:30 | XMS_ITS | Encounter Summary ---
Author Organization [facility] Healthcare Address [address] [place] [address] Care Team Providers Care Counseling Department Chair Name Role Phone Criss Blanco MD Unavailable Lashay Downs RN Unavailable Unavailab Duke Goodwin RN Unavailable UnavailNgozi Husain MD Unavailable [phone] Jose Roberto Marx MD Unavailable [phone] Reason for Visit * Reason Comments Fall Encounter Details Date Type Department Care Team (Late st Contact Info) Description 06/30/2019 7:50 AM OCEAN FORWARDER - 06/30/2019 11:30 AM [facility] Emergency [facility] Emergency Department [address] [place] [address] Rita Jackson MD [address] [place] [address] [place] [address] Fall, initial encounter (Primary Dx); Contusion of [...] on file Legal Sex Male 12:56 AM OCEAN FORWARDER Gender Identity Not on file Sexual Orientation Not on file 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 on file Not on natalie e documented as of this encounter Last Filed Vital Signs Vital Sign Reading Time Taken Comments Blood Pressure 131/85 06/30/2019 11:15 AM OCEAN FORWARDER Pulse 64 06/30/2019 11:15 AM OCEAN FORWARDER Temperature 36.3 ??C (97.4 ??F) 06/30/2019 7:57 AM CS T Respiratory Rate 12 06/30/2019 10:30 AM OCEAN FORWARDER Oxygen Saturation 96% 06/30/2019 11:15 AM OCEAN FORWARDER Inhaled Oxygen Concentration - - Weight 98.9 kg (218 lb) 06/30/2019 7:57 AM OCEAN FORWARDER Height 185.4 cm (6' 1 ) 06/30/2019 7:57 AM OCEAN FORWARDER Body Mass Index 28.76 06/30/2019 7:57 AM OCEAN FORWARDER documented in this encounter Discharge Diagnoses Diagnosis [...] Rita Jackson MD - 06/30/2019 11:22 AM OCEAN FORWARDER Rest, Tylenol or ibuprofen for discomfort. Follow-up with her doctor in 3-5 days. Return to the ER with worsening symptoms or with N FORWARDER * Attachments The following attachments cannot be sent through Care Everywhere. * Abrasion (AfterCare(R) Instructions(ER/ED)) (Grenadian) documented in this encounter Medications at Time [...] OTHER MEDICAL hemorroids; Comments: Had done at [facility] in [place] ??? HX OTHER MEDICAL bladder infection [...] mcg capsule hydroxychloroquine (PLAQUENIL) 200 mg tablet mbmikvfgawji-Ac-zypf-minerals 18-0.4 mg tablet rOPINIRole (REQUIP) 1 mg [...] words and actions. Rita Jackson MD 06/30/19 [address] N FORWARDER * Gio Singh RN - 06/30/2019 7:52 AM CST Pt arrived to room 10 with reports of falling on his right side while feeding the birds. Pt is unsure If he hit is head or not. No open areas or bumps noted to head. Pt denies any open areas or tearsand none noted at this time. N FORWARDER documented in this encounter Plan of Treatment Not on file documented as of this encounter Procedures Procedure Name Priority Date/Time Associated Diagnosis Comments CT ELBOW RIGHT WO CONTRAST ED 06/30/2019 10:20 AM OCEAN FORWARDER XR ELBOW RIGHT 2 OR MORE VIEWS ED 06/30/2019 8:[address] CERVICAL SPINE WO CONTRAST ED 06/30/2019 8:[address] HEAD WO CONTRAST ED 06/30/2019 8 :38 AM OCEAN FORWARDER documented in this encounter Results * CT Elbow Right WO Contrast (06/30/2019 10:20 AM OCEAN FORWARDER) Anatomical Region Laterality Modality Upper Extremities Right Computed Tomog toño 06/30/2019 10:3 7 AM OCEAN FORWARDER Impressions 06/30/2019 10:41 AM OCEAN FORWARDER 1. ??No fracture. 2. ??Osteoarthritis. Electronically signed by: Sulaiman Gar M.D. Narrative 06/30/2019 10:41 AM OCEAN FORWARDER EXAMINATION: CT ELBOW RIGHT WO CONTRAST ORDERING [...] 2 or More Views (06/30/2019 8:47 AM OCEAN FORWARDER) Anatomical Region Laterality Modality Upper Extremities, Elbow Right Compute d Radiography 06/30/2019 8:52 AM OCEAN FORWARDER Impressions 06/30/2019 8:55 AM OCEAN FORWARDER 1. ??Elbow joint effusion raising concern for occult fracture in the setting of trauma, although without distinct fracture line identified. 2. ??Osteoarthritis. Electronically signed by: Sulaiman Gar M.D. Narrative 06/30/2019 8:55 AM OCEAN FORWARDER EXAMINATION: XR ELBOW RIGHT 2 VIEWS ORDERING [...] Cervical Spine WO Contrast (06/30/2019 8:38 AM OCEAN FORWARDER) Anatomical Region Laterality Modality Spine N/A Computed Tomogra phy 06/30/2019 8:43 AM OCEAN FORWARDER Impressions 06/30/2019 8:49 AM OCEAN FORWARDER 1. ??No acute osseous abnormality. 2. ??Cervical spondylosis. Electronically signed by: Sulaiman Gar M.D. Narrative 06/30/2019 8:49 AM OCEAN FORWARDER EXAMINATION: CT CERVICAL SPINE WO CONTRAST ORDERING [...] CT Head WO Contrast (06/30/2019 8:38 AM OCEAN FORWARDER) Anatomical Region Laterality Modality Head and Neck N/A Computed Tomogra phy 06/30/2019 8:40 AM OCEAN FORWARDER Impressions 06/30/2019 8:43 AM OCEAN FORWARDER No acute intracranial abnormality. Electronically signed by: Sulaiman Gar M.D. Narrative 06/30/2019 8:43 AM OCEAN FORWARDER EXAMINATION: ??CT HEAD WO CONTRAST ORDERING HEALTHCARE [...] Discontinue Reason Start Date End Da te wyuyjqmszjqc-Xb-upiv-min erals 18-0.4 mg tabletIndications:Minera l Deficiency Prevention,Vitamin [...] 04/08/2020 added in this encounter Care Teams Counseling Department Chair Relationship Specialty [place] [address] [facility] [address] [place] [address] Rheumatology 02/21/17 Lashay Downs, RN Registered Nurse Pain Management 06/17/17 Duke Do, RN Registered Nurse 09/09/17 Ngozi Petty MD Radiation Oncologist Radiation Oncology 02/05/19 Jose Roberto Marx MD Referring Physician Otolaryngology 02/05/19 documented as of this encounter
--- OUTSIDE RECORDS SUMMARY | 2024-06-14 23:30 | XMS_ITS | Encounter Summary ---
Author Organization [facility] Address [address] [place] [address] Phone Care Team Providers Care Tractor Operator Name Role Phone Criss Blanco MD Unavailable Lashay Downs RN Unavailable Unavailab Duke Goodwin RN Unavailable UnavailNgozi Husain MD Unavailable Jose Roberto Marx MD Unavailable [phone] Reason for Visit * Reason Comments Follow-up squamous cell carcin maricruz of larynx Encounter Details Date Type Department Care Team (Late st Contact Info) Description 10/06/2019 1:30 PM CDT Office Visit [facility] ENT [address] [facility] Medical Office Building [address] [place] [address] Nathanael Valdez MD [address] [place] [address] 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 Heis doing [...] Not enlarged, swollen or pale. Mouth/Throat: Lips: [place]. No lesions. Mouth: Mucous membranes are moist. [...] up with video. Nathanael Valdez MD, FACS Sole Molding Machine Operator [facility] Voice & Airway Center Division of Laryngology Department of Otolaryngology--Head & Neck Surgery Portions of this note were dictated using M*Modal Fluency Direct. Footwear Production Machine Operator variances may occur. documented in this encounter [...] Dysphonia documented in this encounter Care Teams Tractor Operator Relationship Specialty [place] [address] [facility] [address] [place] [address] Rheumatology 02/21/17 Lashay Downs, RN Registered Nurse Pain Management 06/17/17 Duke Do, RN Registered Nurse 09/09/17 Ngozi Petty MD Radiation Oncologist Radiation Oncology 02/05/19 Jose Roberto Marx MD Referring Physician Otolaryngology 02/05/19 documented as of this encounter
--- OUTSIDE RECORDS SUMMARY | 2024-06-14 23:30 | XMS_ITS | Encounter Summary ---
Author Organization [facility] Healthcare Address [address] [place] [address] Care Team Providers Care Ground Water Technician Name Role Phone Criss Blacno MD Unavailable Lashay Downs RN Unavailable Unavailab Duke Goodwin RN Unavailable UnavailNgozi Husain MD Unavailable [phone] Jose Roberto Marx MD Unavailable [phone] Encounter Details Date Type Department Care Team [...] on file Legal Sex Male 12:56 AM INSTRUCTOR TECHNICAL TRAINING Gender Identity Not on file Sexual Orientation [...] on filedocumented in this encounter Care Teams Ground Water Technician Relationship Specialty [place] [address] [facility] [address] [place] [address] Rheumatology 02/21/17 aLshay Downs, RN Registered Nurse Pain Management 06/17/17 Duke Do, RN Registered Nurse 09/09/17 Ngozi Petty MD Radiation Oncologist Radiation Oncology 02/05/19 Jose Roberto Marx MD Referring Physician Otolaryngology 02/05/19 documented as of this encounter
--- OUTSIDE RECORDS SUMMARY | 2024-06-14 23:30 | XMS_ITS | Encounter Summary ---
Author Organization [facility] Address [address] [place] [address] Phone Care Team Providers Care Mechanical Manager Name Role Phone Criss Blanco MD Unavailable Lashay Downs RN Unavailable Unavailab Duke Goodwin RN Unavailable UnavailNgozi Husain MD Unavailable [phone] Jose Roberto Marx MD Unavailable [phone] Reason for Visit * Reason Comments Squamous Cell Carcinoma Encounter Details Date Type Department Care Team (Late st Contact Info) Description 05/20/2020 9:40 AM STRATEGY LEAD Office Visit [facility] [address] [facility] [address] [place] [address] Nathanael Valdez MD [address] [place] [address] 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 1 month [...] ear normal. Nose: Nose normal. Mouth/Throat: Lips: [place]. No lesions. Neck: Comments: The patient's voice [...] follow-ups on file. Nathanael Valdez MD, FACS Trekking Guide [facility] Voice [facility] Airway Center Division of Laryngology Department of Otolaryngology--Head & Neck Surgery Portions of this note were dictated using M*Modal Fluency Direct. Social Service Technician variances may occur. 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 Continue routine surveillance. 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
--- OUTSIDE RECORDS SUMMARY | 2024-06-14 23:30 | XMS_ITS | Encounter Summary ---
Author Organization [facility] Address [address] [facility] [address] [place] [address] Care Team Providers Care Boiler Tube Blower Name Role Phone Crsis Blanco MD Unavailable Lashay Downs RN Unavailable Unavailab Duke Goodwin RN Unavailable UnavailNgozi Husain MD Unavailable [phone] Jose Roberto Marx MD Unavailable [phone] Encounter Details Date Type Department Care Team (Late st Contact Info) Description 11/24/2019 Telephone [facility] Gastroenterology at [address] [place] [address] Deanne Antonio Social History Tobacco [...] on file Legal Sex Male 12:56 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
--- OUTSIDE RECORDS SUMMARY | 2024-06-14 23:31 | XMS_ITS | Encounter Summary ---
Author Organization [facility] Healthcare Address [address] [place] [address] Care Team Providers Care Guideman Name Role Phone Criss Blanco MD Unavailable Lashay Downs RN Unavailable Unavailab Duke Goodwin RN Unavailable UnavailNgozi Husain MD Unavailable [phone] Jose Roberto Marx MD Unavailable [phone] Encounter Details Date Type Department Care Team (Latest Contact Info) Description 03/09/2019 6:37 AM CDT - 03/09/2019 11:07 AM CDT Hospital Encounter [facility] Operating Room [address] [place] [address] Nathanael Valdez MD [address] [place] [address] Squamous cell carcinoma of larynx ([facility]/HCC) Discharge Disposition: Discharge to home or [...] file Legal Sex Male 12:56 AM MANAGER COMBINATION Gender Identity Not on file Sexual Orientation [...] - PERSONAL HISTORY OF URINARY CALCULI Other senior living (current) drug therapy - OTHER HORSE TREKKING GUIDE (CURRENT) DRUG THERAPY Personal history of nicotine [...] mg by mouth once a week 9 mvoewbzaonlb-By-p foreign-minerals 18-0.4 mg tabletIndications :Mineral Deficiency Prevention,Vitami [...] [place] ; CABG ; valvular heart disease; valve [...] of multiple sites (CMS/HCC) ??? Headache ??? long term acute care registered nurse use of drug ??? Discogenic low back [...] MEDICAL hemorroids; Comments: Had done at [facility] in [place] ??? HX OTHER MEDICAL bladder infection [...] -- -- Historical Provider, Notes: Not taking oixwoxxqaji-xqfussdms-lik C-Mn capsule -- -- Historical Provider, methotrexate 2.5 mg tablet -- -- Historical Provider, Notes: Not taking eduomthpvche-Jk-hwwf-minerals 18-0.4 mg tablet -- -- Historical Provider, ranitidine (ZANTAC) 300 mg capsule -- -- Historical Provider, tamsulosin (FLOMAX) 0.4 mg extended release capsule -- -- Historical Provider, No current facility-administered medications for this encounter. Current Outpatient Medications: ??? biotin 10,000 mcg capsule ??? esomeprazole DR (NexIUM) 20 mg capsule ??? folic acid (FOLVITE) 1 mg tablet ??? bnqvydwnpcz-swxqquoug-gdc C-Mn capsule ??? ptshuayonbsg-Wf-mjff-minerals 18-0.4 mg tablet ??? ranitidine (ZANTAC) 300 [...] Medication protocol when under care of a MINUTE CLERK Planned anesthesia: General Informed Consent: Anesthesia [...] CDT [facility] for Preoperative Assessment and Planning [facility] Clinic Location: [facility] The night before your [...] Don't take on day of surgery ??? yryntpkldfq-trbymtoll-hbd C-Mn capsule Don't take on day of surgery ??? nwqkqgexbptc-Ed-rxyb-minerals 18-0.4 mg tablet Stop taking 1 week [...] your surgery: Vitamin E, Fish Oil (Lovaza, Newfane 3), Herbal medicines, Diet Pills ?? If [...] 1 mg by mouth every morning ??? gxgsiwubhcz-aojhxwrid-gft C-Mn capsule Take 1 capsule by mouth every morning ??? okndizvoqcrx-Dx-zrmb-minerals 18-0.4 mg tablet Take 1 tablet by [...] Directive: Patient does not have advance directive Communication/Agricultural Science Professor Needs Communication Needs: None Patient's Preferred Language: Syriac Assistive Devices/DME: Eyeglasses Discharge Planning Type of [...] 2 days of your surgery, please call [phone] and ask for your surgeon's office documented in this encounter Plan of Treatment Not on file documented as of this encounter Procedures Procedure Name Priority Date/Time Associated Diagnosis Comments SURGICAL PATHOLOGY Routine 03/09/2019 9: 46 AM CDT Squamous cell carcinoma of larynx (CMS/HCC) LASER KTP 03/09/2019 9:11 AM CDT Squamous cell carcinoma of larynx (CMS/HCC) Special Needs KTP laser ordered with Hortensia @ [facility] 02/19/19 MICROLARYNGOSCOPY 03/09/2019 9:1 1 AM CDT Squamous cell carcinoma of larynx (CMS/HCC) Special Needs KTP laser ordered with Hortensia @ [facility] 02/19/19 documented in this encounter Results * Surgical pathology (03/09/2019 9:46 AM CDT) Tissue (Vocal cord) 03/09/2019 9:46 AM CDT Narrative PATHOLOGY [facility] - 03/10/2019 5:55 PM CDT EPIC results best viewed via link to PDF [facility] [place] [address] SURGICAL PATHOLOGY REPORT FINAL Patient Name: ?? PASQUALE SANCHEZ Gender: ??M : ??1945 (Age: 73) Address: ??[address] [place] [id number] Hospital #: ??[id number] Taken:03/09/2019 Received:03/09/2019 Reported: 03/10/2019 Patient Type: WC SDS Client ?[facility] Service: Surgery Location: [facility] Physician(s): ??Nathanael Valdez M.D. Diagnosis: Larynx, right [...] interpretation for this case was performed at [facility], Department of Surgical Pathology, [address] [facility] [address], [id number], ??[place], [place] ??[address] ?? CLIA # [id number] Sarah Lang MD, PhD History: The patient [...] determined by the Surgical Pathology Department at [facility] as part of an ongoing quality management nurse program and in compliance with federally mandated [...] determined by the Surgical Pathology Department of [facility]. ??It has not been cleared or approved by the U. S. Food and Drug Administration. IMAGES AND SCANNED DOCUMENTS, IF INCLUDED, ONLY VIEWABLE IN PDF VERSION OF REPORT Nathanael Valdez MD LAB PATHOLOGY ORDERABLES Final Result PATHOLOGY [facility] [phone] documented in this encounter Visit Diagnoses Diagnosis [...] 03/09/2019 documented in this encounter Care Teams Guideman Relationship Specialty [place] [address] [facility] [address] [place] [address] Rheumatology 02/21/17 Lashay Downs, RN Registered Nurse Pain Management 06/17/17 Duke Do, RN Registered Nurse 09/09/17 Ngozi Petty MD Radiation Oncologist Radiation Oncology 02/05/19 Jose Roberto Marx MD Referring Physician Otolaryngology 02/05/19 documented as of this encounter
--- OUTSIDE RECORDS SUMMARY | 2024-06-14 23:31 | XMS_ITS | Encounter Summary ---
Author Organization [facility] Address [address] [place] [address] Phone Care Team Providers Care Last Marker Name Role Phone Criss Blanco MD Unavailable Lashay Downs RN Unavailable Unavailab Duke Goodwin RN Unavailable UnavailNgozi Husain MD Unavailable [phone] Jose Roberto Marx MD Unavailable [phone] Reason for Visit * Reason Onset Date Comments Test Results 06/05/2019 Encounter Details Date Type Department Care Team (Late st Contact Info) Description 06/05/2019 Telephone [facility] Otolaryngology [facility] [address] [address] Marisol Madrid RN Test Results [...] file Legal Sex Male 12:56 AM RETAIL MARKETING EXECUTIVE Gender Identity Not on file Sexual Orientation Not on file 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 Amessage was sent to Dr. Valdez who replied, a sample was not taken at that particular procedure. Patient made aware and will speak with Dr. Valdez more at his next appointment 06/23/19 [place] MARKETING EXECUTIVE documented in this encounter Plan of Treatment Not on file documented as of this encounter Visit Diagnoses Not on filedocumented in this encounter Care Teams Last Marker Relationship Specialty [place] [address] [facility] [address] [place] [address] Rheumatology 02/21/17 Lashay Downs, RN Registered Nurse Pain Management 06/17/17 Duke Do, RN Registered Nurse 09/09/17 Ngozi Petty MD Radiation Oncologist Radiation Oncology 02/05/19 Jose Roberto Marx MD Referring Physician Otolaryngology 02/05/19 documented as of this encounter
--- OUTSIDE RECORDS SUMMARY | 2024-06-14 23:31 | XMS_ITS | Encounter Summary ---
Author Organization [facility] Address [address] [place] [address] Phone Care Team Providers Care Police Magistrate Name Role Phone Criss Blanco MD Unavailable Lashay Downs RN Unavailable Unavailab Duke Goodwin RN Unavailable UnavailNgozi Husain MD Unavailable [phone] Jose Roberto Marx MD Unavailable [phone] Encounter Details Date Type Department Care Team (Late st Contact Info) Description 05/12/2019 11:00 AM OPERATIONS PLANT ATTENDANT Office Visit [facility] Otolaryngology [address] [facility] [address] [place], [place] [address] [address] Nathanael Valdez MD [facility] [place] [address] 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 He is doing [...] Not enlarged, swollen or pale. Mouth/Throat: Lips: [place]. No lesions. Mouth: Mucous membranes are moist. [...] follow-up after procedure. Nathanael Valdez MD, FACS Nurse Practitioner [place] [facility] Voice & Airway Center Division of Laryngology Department of Otolaryngology--Head & Neck Surgery Portions of this note were dictated using M*Modal Fluency Direct. Gas Desulfurizer variances may occur. ATIONS PLANT ATTENDANT documented in this encounter Miscellaneous Notes * Assessment & Plan Note - Nathanael Valdez MD - 05/12/2019 11:45 AM OPERATIONS PLANT ATTENDANT Associated Problem(s): Squamous cell carcinoma of larynx [...] The patient agrees and wishes to proceed. 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
--- OUTSIDE RECORDS SUMMARY | 2024-06-14 23:31 | XMS_ITS | Encounter Summary ---
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
--- OUTSIDE RECORDS SUMMARY | 2024-06-14 23:31 | XMS_ITS | Encounter Summary ---
Author Organization [facility] Address [address] [place] [address] Phone Care Team Providers Care Escalator Attendant Name Role Phone Criss Blanco MD Unavailable Lashay Downs RN Unavailable Unavailab Duke Goodwin RN Unavailable UnavailNgozi Husain MD Unavailable [phone] Jose Roberto Marx MD Unavailable [phone] Reason for Visit * Reason Onset Date Comments Test Results 03/30/2019 Encounter Details Date Type Department Care Team (Late st Contact Info) Description 03/30/2019 Telephone [facility]ol[facility]ology [facility] [address] [address] Marisol Madrid RN Test Results [...] file Legal Sex Male 12:56 AM WATER RESOURCES ENGINEER Gender Identity Not on file Sexual [...] on filedocumented in this encounter Care Teams Escalator Attendant Relationship Specialty [place] [address] [address] Rheumatology 02/21/17 Lashay Downs, GAY Registered Nurse Pain Management 06/17/17 Duke Do, RN Registered Nurse 09/09/17 Ngozi Petty MD Radiation Oncologist Radiation Oncology 02/05/19 Jose Roberto Marx MD Referring Physician Otolaryngology 02/05/19 documented as of this encounter
--- OUTSIDE RECORDS SUMMARY | 2024-06-14 23:31 | XMS_ITS | Encounter Summary ---
Author Organization [facility] Address [address] [facility] [address] [place] [address] Care Team Providers Care Billet Header Name Role Phone Criss Blanco MD Unavailable Lashay Downs RN Unavailable Unavailab Duke Goodwin RN Unavailable UnavailNgozi Husain MD Unavailable [phone] Jose Roberto Marx MD Unavailable [phone] Reason for Visit * Reason Comments Follow-up Encounter Details Date Type Department Care Team (Late st Contact Info) Description 05/29/2019 10:00 AM INDUSTRIAL STAFF NURSE Office Visit [facility] Orthopedics and Sports Medicine [address] [facility] [address] [place] [address] Iris Patten PA [address] [place] [address] [address] [place] [address] Primary osteoarthritis of right knee (Primary Dx); [...] on file Legal Sex Male 12:56 AM INDUSTRIAL STAFF NURSE Gender Identity Not on file Sexual Orientation Not on file 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 on file Not on natalie e documented as of this encounter Last Filed Vital Signs Vital Sign Reading Time Taken Comments Blood Pressure 108/78 05/29/2019 9:54 AM INDUSTRIAL STAFF NURSE Pulse 63 05/29/2019 9:54 AM INDUSTRIAL STAFF NURSE Temperature - - Respiratory Rate - - Oxygen Saturation - - Inhaled Oxygen Concentration - - Weight 100.4 kg (221 lb 6.4 oz) 05/29/2019 9:54 AM INDUSTRIAL STAFF NURSE Height 185.4 cm (6' 1 ) 05/29/2019 9:54 AM INDUSTRIAL STAFF NURSE Body Mass Index 29.21 05/29/2019 9:54 AM INDUSTRIAL STAFF NURSE documented in this encounter Progress Notes * [...] Calculus of kidney, 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 He also has no past medical history of Acute respiratory failure requiring reintubation ([facility]), Awareness under anesthesia, Delayed emergence from general [...] includes the following prescription(s): biotin, esomeprazoledr, hydroxychloroquine, bnvckaogocsj-nm-mwjg-minerals, ranitidine, ropinirole, and tamsulosin. ALLERGIES He has [...] understanding and agreement of plan. ZOILA Adams STRIAL STAFF NURSE documented in this encounter Plan of Treatment Not on file documented as of this encounter Visit Diagnoses Diagnosis Primary osteoarthritis of right knee- Primary Primary osteoarthritis of right hip documented in this encounter Discontinued Medications Medication Sig Discontinue Reason Start Date End Da te folic acid (FOLVITE) 1 mg tabletIndications:Folate Deficiency Take 1 mg by mouth every morning Therapy completed 05/29/2019 dpgupjrqmww-hcisqokre-pe t C-Mn capsuleIndications:suppl ement Take 1 capsule by mouth every morning Therapy completed 05/29/2019 methotrexate 2.5 mg tabletIndications:Rheuma toid Arthritis,8 tabs weekly Take 20 mg by mouth once a week Therapy completed 05/29/2019 documented as of this encounter Care Teams Billet Header Relationship Specialty [place] [address] [facility] [address] [place] [address] Rheumatology 02/21/17 Lashay Downs, RN Registered Nurse Pain Management 06/17/17 Duke Do, GAY Registered Nurse 09/09/17 Ngozi Petty MD Radiation Oncologist Radiation Oncology 02/05/19 Jose Roberto Marx MD Referring Physician Otolaryngology 02/05/19 documented as of this encounter
--- OUTSIDE RECORDS SUMMARY | 2024-06-14 23:31 | XMS_ITS | Encounter Summary ---
Author Organization [facility] Address [address] [place] [address] Phone Care Team Providers Care Attic Blower Name Role Phone Criss Blanco MD Unavailable Lashay Downs RN Unavailable Unavailab Duke Goodwin RN Unavailable UnavailNgozi Husain MD Unavailable [phone] Jose Roberto Marx MD Unavailable [phone] Reason for Visit * Reason Comments Post-op Encounter Details Date Type Department Care Team (Late st Contact Info) Description 04/07/2019 1:15 PM TOWER ATTENDANT Office Visit [facility] Otolaryngology [facility] [address] [place], [place] [address] [address] Nathanael Valdez MD [facility] [place] [address] Squamous cell carcinoma of larynx (CMS/HCC) (Primary [...] on file Legal Sex Male 12:56 AM TOWER ATTENDANT Gender Identity Not on file Sexual [...] ear normal. Nose: Nose normal. Mouth/Throat: Lips: [place]. No lesions. Neck: Comments: His voice is [...] up with video. Nathanael Valdez MD, FACS Core Machine Operator [facility] Voice & Airway Center Division of Laryngology Department of Otolaryngology--Head & Neck Surgery Portions of this note were dictated using M*Modal Fluency Direct. Geochemical Laboratory Technician variances may occur. R ATTENDANT documented in this encounter Miscellaneous Notes * Assessment & Plan Note - Nathanael Valdez MD - 04/07/2019 1:24 PM TOWER ATTENDANT Associated Problem(s): Squamous cell carcinoma of [...] We will check again in 6 weeks. R ATTENDANT documented in this encounter Plan of [...] 06/30/2019 added in this encounter Care Teams Attic Blower Relationship Specialty [place] [address] [address] Rheumatology 02/21/17 Lashay Downs, GAY Registered Nurse Pain Management 06/17/17 Duke Do, RN Registered Nurse 09/09/17 Ngozi Petty MD Radiation Oncologist Radiation Oncology 02/05/19 Jose Roberto Marx MD Referring Physician Otolaryngology 02/05/19 documented as of this encounter
--- OUTSIDE RECORDS SUMMARY | 2024-06-14 23:31 | XMS_ITS | Encounter Summary ---
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 on file Not on natalie e documented as of this encounter Plan of Treatment Not on file documented as of this encounter Visit Diagnoses Not on filedocumented in this encounter Care Teams Xerox Machine Mechanic Relationship Specialty [place] [address] [facility] [address] [place] [address] Rheumatology 02/21/17 Lashay Downs, RN Registered Nurse Pain Management 06/17/17 Duke Do, RN Registered Nurse 09/09/17 Ngozi Petty MD Radiation Oncologist Radiation Oncology 02/05/19 Jose Roberto Marx MD Referring Physician Otolaryngology 02/05/19 documented as of this encounter
--- OUTSIDE RECORDS SUMMARY | 2024-06-14 23:31 | XMS_ITS | Encounter Summary ---
Author Organization [facility] Healthcare Address [address] [place] [address] Care Team Providers Care Affiliate Marketing Coordinator Name Role Phone Criss Blanco MD Unavailable Lashay Downs RN Unavailable Unavailab Duke Goodwin RN Unavailable UnavailNgozi Husain MD Unavailable [phone] Jose Roberto Marx MD Unavailable [phone] Encounter Details Date Type Department Care Team (Late st Contact Info) Description 05/25/2019 2:16 PM FLYING SHEAR OPERATOR Anesthesia Event [facility] Operating Room [address] [place] [address] [place] [address] [place] [address] Anesthesia Record Procedure Summary Procedure Name Responsible [...] on file Legal Sex Male 12:56 AM FLYING SHEAR OPERATOR Gender Identity Not on file Sexual Orientation Not on file 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 on file Not on natalie e documented as of this encounter Plan of Treatment Not on file documented as of this encounter Visit Diagnoses Not on filedocumented in this encounter Care Teams Affiliate Marketing Coordinator Relationship Specialty [place] [address] [facility] [address] [place] [address] Rheumatology 02/21/17 Lashay Downs, RN Registered Nurse Pain Management 06/17/17 Duke Do, RN Registered Nurse 09/09/17 Ngozi Petty MD Radiation Oncologist Radiation Oncology 02/05/19 Jose Roberto Marx MD Referring Physician Otolaryngology 02/05/19 documented as of this encounter
--- OUTSIDE RECORDS SUMMARY | 2024-06-14 23:31 | XMS_ITS | Encounter Summary ---
Author Organization [facility] Address [address] [place] [address] Phone Care Team Providers Care Coil Tier Name Role Phone Criss Blanco MD Unavailable Lashay Downs RN Unavailable Unavailab Duke Goodwin RN Unavailable UnavailNgozi Husain MD Unavailable Jose Roberto Marx MD Unavailable [phone] Encounter Details Date Type Department Care Team (Late st Contact Info) Description 05/12/2019 11:00 AM SHELL WORKER Therapy [facility] Otolaryngology [address] [address] Godfrey Rosales, PhD [facility] [address] [address] Vocal fold leukoplakia (Primary Dx); [...] on file Legal Sex Male 12:56 AM SHELL WORKER Gender Identity Not on file Sexual Orientation Not on file 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 Godfrey Rosales, Ph.D., CCC-BLANKING MACHINE OPERATOR Cosigned by Nathanael Valdez MD at 05/12/2019 1:43 PM SHELL WORKER L WORKER L WORKER documented in this encounter Plan of Treatment Not on file documented as of this encounter Visit Diagnoses Diagnosis Vocal fold leukoplakia- Primary Other diseases of vocal cords Dysphonia documented in this encounter Care Teams Coil Tier Relationship Specialty [place] [address] [facility] [address] [place] [address] Rheumatology 02/21/17 Lashay Downs, RN Registered Nurse Pain Management 06/17/17 Duke Do, RN Registered Nurse 09/09/17 Ngozi Petty MD Radiation Oncologist Radiation Oncology 02/05/19 Jose Roberto Marx MD Referring Physician Otolaryngology 02/05/19 documented as of this encounter
--- OUTSIDE RECORDS SUMMARY | 2024-06-14 23:31 | XMS_ITS | Encounter Summary ---
Author Organization [facility] Healthcare Address [address] [place] [address] Care Team Providers Care Resident Care Director Name Role Phone Criss Blanco MD Unavailable Lashay Downs RN Unavailable Unavailab Duke Goodwin RN Unavailable UnavailNgozi Husain MD Unavailable [phone] Jose Roberto Marx MD Unavailable [phone] Encounter Details Date Type Department Care Team (Late st Contact Info) Description 03/09/2019 8:30 AM CDT - 03/09/2019 9:45 AM CDT Surgery [facility] Operating Room [address] [place] [address] Nathanael Valdez MD [address] [place] [address] Suspension microlaryngoscopy with KTP laser treatment Surgery Details Date/Time Status Location OR Service Patient Class Case Class Case Type Trauma Case? 03/09/2019 8:30 AM Posted [facility] OPERATING ROOM ASC1 1 Otolaryngology Outpatient Elective [...] Needs KTP laser ordered with Hortensia @ [facility] 02/19/19 documented in this encounter Social History [...] on file Legal Sex Male 12:56 AM BOAT PERSON Gender Identity Not on file Sexual Orientation [...] mg by mouth once a week 9 yptnkbmijlmb-Bh-a foreign-minerals 18-0.4 mg tabletIndications :Mineral Deficiency Prevention,Vitami [...] Cardiovascular Pertinent negatives: hypertension ; CAD ; SC ; CABG ; valvular heart disease; valve [...] of multiple sites (CMS/HCC) ??? Headache ??? parts counterman use of drug ??? Discogenic low back [...] OTHER MEDICAL hemorroids; Comments: [facility] [place] ??? HX OTHER MEDICAL bladder infection ??? [...] -- -- Historical Provider, Notes: Not taking elwflltulrk-yxvavhing-evc C-Mn capsule -- -- Historical Provider, methotrexate 2.5 mg tablet -- -- Historical Provider, Notes: Not taking mhokmrjsyijm-El-eubx-minerals 18-0.4 mg tablet -- -- Historical Provider, ranitidine (ZANTAC) 300 mg capsule -- -- Historical Provider, tamsulosin (FLOMAX) 0.4 mg extended release capsule -- -- Historical Provider, No current facility-administered medications for this encounter. Current Outpatient Medications: ??? biotin 10,000 mcg capsule ??? esomeprazole DR (NexIUM) 20 mg capsule ??? folic acid (FOLVITE) 1 mg tablet ??? wavdbwfqkaq-igselopxi-tfz C-Mn capsule ??? ulzfqzokddmf-Xq-okac-minerals 18-0.4 mg tablet ??? ranitidine (ZANTAC) 300 [...] Medication protocol when under care of a WINERY WORKER Planned anesthesia: General Informed Consent: Anesthesia plan [...] Preoperative Assessment and Planning CPAP Clinic Location: [facility] The night before your surgery: * [...] Don't take on day of surgery ??? ftwpvlrtooi-oxzghtpoe-kpn C-Mn capsule Don't take on day of surgery ??? clssudikssjh-Qh-ikmc-minerals 18-0.4 mg tablet Stop taking 1 week [...] your surgery: Vitamin E, Fish Oil (Lovaza, [place] 3), Herbal medicines, Diet Pills ?? If [...] 1 mg by mouth every morning ??? wxlcsylchtt-kebssznbj-tsq C-Mn capsule Take 1 capsule by mouth every morning ??? wjpetttscywm-Eq-vfiy-minerals 18-0.4 mg tablet Take 1 tablet by [...] Directive: Patient does not have advance directive Communication/Data Programmer Needs Communication Needs: None Patient's Preferred Language: Lithuanian Assistive Devices/DME: Eyeglasses Discharge Planning Type of [...] 2 days of your surgery, please call [phone] and ask for your surgeon's office documented in this encounter Plan of Treatment Not on file documented as of this encounter Procedures Procedure Name Priority Date/Time Associated Diagnosis Comments SURGICAL PATHOLOGY Routine 03/09/2019 9: 46 AM CDT Squamous cell carcinoma of larynx (CMS/HCC) LASER KTP 03/09/2019 9:11 AM CDT Squamous cell carcinoma of larynx (CMS/HCC) Special Needs KTP laser ordered with Hortensia @ [facility] 02/19/19 MICROLARYNGOSCOPY 03/09/2019 9:1 1 AM CDT Squamous cell carcinoma of larynx (CMS/HCC) Special Needs KTP laser ordered with Hortensia @ [facility] 02/19/19 documented in this encounter Results * Surgical pathology (03/09/2019 9:46 AM CDT) Tissue (Vocal cord) 03/09/2019 9:46 AM CDT Narrative PATHOLOGY [facility] - 03/10/2019 5:55 PM CDT EPIC results best viewed via link to PDF [facility] [place] [address] SURGICAL PATHOLOGY REPORT FINAL Patient Name: ?? PASQUALE SANCHEZ Gender: ??M : ??1945 (Age: 73) Address: ??[address] [place], [place] ??[address] Hospital #: ??[id number] Taken:03/09/2019 Received:03/09/2019 Reported: 03/10/2019 Patient Type: WC SDS Client ?[facility] Service: Surgery Location: [facility] Physician(s): ??Nathanael Valdez M.D. Diagnosis: Larynx, right [...] interpretation for this case was performed at [facility], Department of Surgical Pathology, [address] [facility] [address], [id number], ??[facility], [place] ??[address] ?? CLIA # [id number] Sarah Lang MD, PhD History: The patient [...] determined by the Surgical Pathology Department at [facility] as part of an ongoing director software quality assurance program and in compliance with federally mandated [...] determined by the Surgical Pathology Department of [facility]. ??It has not been cleared or approved by the U. S. Food and Drug Administration. IMAGES AND SCANNED DOCUMENTS, IF INCLUDED, ONLY VIEWABLE IN PDF VERSION OF REPORT Nathanael Valdez MD LAB PATHOLOGY ORDERABLES Final Result PATHOLOGY [facility] [phone] documented in this encounter Visit Diagnoses Diagnosis [...] 03/09/2019 documented in this encounter Care Teams Resident Care Director Relationship Specialty [place] [address] [facility] [address] [place] [address] Rheumatology 02/21/17 Lashay Downs, RN Registered Nurse Pain Management 06/17/17 Duke Do, RN Registered Nurse 09/09/17 Ngozi Petty MD Radiation Oncologist Radiation Oncology 02/05/19 Jose Roberto Marx MD Referring Physician Otolaryngology 02/05/19 documented as of this encounter
--- OUTSIDE RECORDS SUMMARY | 2024-06-14 23:31 | XMS_ITS | Encounter Summary ---
Author Organization [facility] Healthcare Address [address] [place] [address] Care Team Providers Care Bath Mix Operator Name Role Phone Criss Blanco MD Unavailable Lashay Downs RN Unavailable Unavailab Duke Goodwin RN Unavailable UnavailNgozi Husain MD Unavailable [phone] Jose Roberto Marx MD Unavailable [phone] Encounter Details Date Type Department Care Team (Late st Contact Info) Description 05/25/2019 2:20 PM VENTILATION WORKER - 05/25/2019 2:45 PM VENTILATION WORKER Surgery [facility] Operating Room [address] [place] [address] Nathanael Valdez MD [address] [place] [address] Flexible Laryngoscopy with KTP laser photoablation Surgery Details Date/Time Status Location OR Service Patient Class Case Class Case Type Trauma Case? 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 on file Not on natalie e documented as of this encounter Last Filed Vital Signs Vital Sign Reading Time Taken Comments Blood Pressure 149/89 05/25/2019 2:39 PM VENTILATION WORKER Pulse 60 05/25/2019 2:39 PM VENTILATION WORKER Temperature 36.1 ??C (97 ??F) 05/25/2019 2:39 PM VENTILATION WORKER Respiratory Rate 18 05/25/2019 2:32 PM VENTILATION WORKER Oxygen Saturation 99% 05/25/2019 2:39 PM VENTILATION WORKER Inhaled Oxygen Concentration - - Weight [...] mg by mouth once a week 9 ymqkwxaytnus-Il-y foreign-minerals 18-0.4 mg tabletIndications :Mineral Deficiency Prevention,Vitami [...] Procedure(s): Flexible Laryngoscopy with KTP laser photoablation ILATION WORKER Source Note - Nathanael Valdez MD - 05/12/2019 11:00 AM VENTILATION WORKER PATIENT NAME: Samuel Sanchez : 1945 DOS: 05/12/2019 REFERRING PHYSICIAN: Self Referral CHIEF COMPLAINT: No chief complaint on file. INTERVAL HISTORY: Samuel Sanchez is a 73 y.o. 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 He is doing [...] Not enlarged, swollen or pale. Mouth/Throat: Lips: [place]. No lesions. Mouth: Mucous membranes are moist. [...] follow-up after procedure. Nathanael Valdez MD, FACS Weapons And Tactics Instructor [facility] Division of Laryngology Department of Otolaryngology--Head & Neck Surgery Portions of this note were dictated using M*Modal Fluency Direct. Real Estate Closing Coordinator variances may occur. ILATION WORKER documented in this encounter Miscellaneous Notes * Perioperative Nursing Note - Asha Muñiz RN - 05/25/2019 2:31 PM VENTILATION WORKER Radha Yousif drying room operator. Laser fundtions: Start 14:25 Stop 14:30 Total energy 126 Joules Max garcia 30 15 Milliseconds 2 pulses per second using a .4Endostat fiber ILATION WORKER * Op Note - Nathanael Valdez MD [...] participated in the entirety of the procedure ILATION WORKER documented in this encounter Plan of Treatment Not on file documented as of this encounter Procedures Procedure Name Priority Date/Time Associated Diagnosis Comments LASER KTP 05/25/2019 2:16 PM VENTILATION WORKER Squamous cell carcinoma of larynx (CMS/HCC) Special [...] at 1414, Intra-Op Given 05/25/2019 2:14 PM VENTILATION WORKER 15 mL Surgical Site oxymetazoline (AFRIN) 0.05 % nasal spray As needed, Starting on 05/25/19 at 1413, Intra-Op Given 05/25/2019 2:13 PM VENTILATION WORKER 30 mL documented in this encounter Active and Recently Administered Medications Times are shown in VENTILATION WORKER. PRN Medication Order 05/23/2019 05/24/2019 05/25/2019 lidocaine [...] 05/25/2019 documented in this encounter Care Teams Bath Mix Operator Relationship Specialty [place] [address] [address] Rheumatology 02/21/17 Lashay Downs, GAY Registered Nurse Pain Management 06/17/17 Duke Do, RN Registered Nurse 09/09/17 Ngozi Petty MD Radiation Oncologist Radiation Oncology 02/05/19 Jose Roberto Marx MD Referring Physician Otolaryngology 02/05/19 documented as of this encounter
--- OUTSIDE RECORDS SUMMARY | 2024-06-14 23:31 | XMS_ITS | Encounter Summary ---
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 on file Not on natalie e documented as of this encounter Plan of Treatment Not on file documented as of this encounter Visit Diagnoses Not on filedocumented in this encounter Care Teams Wedding Transportation Driver Relationship Specialty [place] [address] [facility] [address] [place] [address] Rheumatology 02/21/17 Lashay Downs, RN Registered Nurse Pain Management 06/17/17 Duke Do, RN Registered Nurse 09/09/17 Ngozi Petty MD Radiation Oncologist Radiation Oncology 02/05/19 Jose Roberto Marx MD Referring Physician Otolaryngology 02/05/19 documented as of this encounter
--- OUTSIDE RECORDS SUMMARY | 2024-06-14 23:31 | XMS_ITS | Encounter Summary ---
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 on file Not on natalie e documented as of this encounter Plan of Treatment Not on file documented as of this encounter Visit Diagnoses Not on filedocumented in this encounter Care Teams Sandblasting Supervisor Relationship Specialty [place] [address] [facility] [address] [place] [address] Rheumatology 02/21/17 Lashay Downs, RN Registered Nurse Pain Management 06/17/17 Duke Do, RN Registered Nurse 09/09/17 Ngozi Petty MD Radiation Oncologist Radiation Oncology 02/05/19 Jose Roberto Marx MD Referring Physician Otolaryngology 02/05/19 documented as of this encounter
--- OUTSIDE RECORDS SUMMARY | 2024-06-14 23:31 | XMS_ITS | Encounter Summary ---
Author Organization 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) Dysphonia Procedures SUPERVISOR AGRICULTURAL EDUCATION videostroboscopy - Nathanael Valdez MD Phone: tel: fax: [facility] (All Locations) Referral ID Status Reason Start Date Expiration Date Visits Re quested Visits Authorized [id number] Closed 04/03/2019 10/12/2020 1 1 Encounter Details Date Type Department Care Team (Late st Contact Info) Description 04/03/2019 Orders Only [facility] Otolaryngology [facility] [address] [place] [id number] Marisol Madrid RN Squamous cell carcinoma of [...] file Legal Sex Male 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 Gender Identity Not on file Sexual Orientation [...] site Dysphonia documented in this encounter Orders SUPERVISOR AGRICULTURAL EDUCATION Count Last Ordered Date First Orde red Date SUPERVISOR AGRICULTURAL EDUCATION VIDEOSTROBOSCOPY 1 04/07/2019 documented in this encounter Care Teams Director Oracle Relationship Specialty [place] [address] [facility] [address] [place] [address] Rheumatology 02/21/17 Lashay Downs, RN Registered Nurse Pain Management 06/17/17 Duke Do, RN Registered Nurse 09/09/17 Ngozi Petty MD Radiation Oncologist Radiation Oncology 02/05/19 Jose Roberto Marx MD Referring Physician Otolaryngology 02/05/19 documented as of this encounter
--- OUTSIDE RECORDS SUMMARY | 2024-06-14 23:31 | XMS_ITS | Encounter Summary ---
Author Organization [facility] Healthcare Address [address] [place] [address] Care Team Providers Care Medical Anthropology Director Name Role Phone Criss Blanco MD Unavailable Lashay Downs RN Unavailable Unavailab Duke Goodwin RN Unavailable UnavailNgozi Husain MD Unavailable [phone] Jose Roberto Marx MD Unavailable [phone] Encounter Details Date Type Department Care Team (Latest Contact Info) Description 05/25/2019 1:41 PM ESCORT BLIND - 05/25/2019 2:44 PM ESCORT BLIND Hospital Encounter [facility] Operating Room [address] [place] [address] Nathanael Valdez MD [address] [place] [address] Discharge Disposition: Discharge to home or self [...] on file Legal Sex Male 12:56 AM ESCORT BLIND Gender Identity Not on file Sexual Orientation Not on file 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 Not on file Not on file Not on natalie e documented as of this encounter Last Filed Vital Signs Vital Sign Reading Time Taken Comments Blood Pressure 149/89 05/25/2019 2:39 PM ESCORT BLIND Pulse 60 05/25/2019 2:39 PM ESCORT BLIND Temperature 36.1 ??C (97 ??F) 05/25/2019 2:39 PM ESCORT BLIND Respiratory Rate 18 05/25/2019 2:32 PM ESCORT BLIND Oxygen Saturation 99% 05/25/2019 2:39 PM ESCORT BLIND Inhaled Oxygen Concentration - - Weight - - Height - - Body Mass Index - - documented in this encounter Discharge Diagnoses Diagnosis Malignant neoplasm of larynx, unspecified (HCC) - MALIGNANT NEOPLASM OF LARYNX, UNSPECIFIED Postnasal drip - POSTNASAL DRIP Other mcc (current) drug therapy - OTHER RIPRAP PLACER (CURRENT) DRUG THERAPY documented in this encounter [...] mg by mouth once a week 9 bfybjvzglvmw-Cg-t foreign-minerals 18-0.4 mg tabletIndications :Mineral Deficiency Prevention,Vitami [...] Procedure(s): Flexible Laryngoscopy with KTP laser photoablation RT BLIND Source Note - Nathanael Valdez MD - 05/12/2019 11:00 AM ESCORT BLIND PATIENT NAME: Samuel Sanchez : 1945 DOS: 05/12/2019 REFERRING PHYSICIAN: Self Referral CHIEF COMPLAINT: No chief complaint on file. INTERVAL HISTORY: Samuel Sanchez is a 73 y.o. 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 He is doing [...] Not enlarged, swollen or pale. Mouth/Throat: Lips: [place]. No lesions. Mouth: Mucous membranes are moist. [...] follow-up after procedure. Nathanael Valdez MD, FACS [employer] [facility] Division of Laryngology Department of Otolaryngology--Head & Neck Surgery Portions of this note were dictated using M*Modal Fluency Direct. Estimator And Drafter variances may occur. RT BLIND documented in this encounter Miscellaneous Notes * Perioperative Nursing Note - Asha Muñiz, RN - 05/25/2019 2:31 PM ESCORT BLIND Radha Yousif tuber operator. Laser fundtions: Start 14:25 Stop 14:30 Total energy 126 Joules Max garcia 30 15 Milliseconds 2 pulses per second using a .4Endostat fiber RT BLIND * Op Note - Nathanael Valdez MD [...] participated in the entirety of the procedure RT BLIND documented in this encounter Plan of Treatment Not on file documented as of this encounter Procedures Procedure Name Priority Date/Time Associated Diagnosis Comments LASER KTP 05/25/2019 2:16 PM ESCORT BLIND Squamous cell carcinoma of larynx (CMS/HCC) Special [...] Recently Administered Medications Times are shown in ESCORT BLIND. PRN Medication Order 05/23/2019 05/24/2019 05/25/2019 lidocaine [...] 05/25/2019 documented in this encounter Care Teams Medical Anthropology Director Relationship Specialty [place] [address] [facility] [address] [place] [address] Rheumatology 02/21/17 Lashay Downs, RN Registered Nurse Pain Management 06/17/17 Duke Do, RN Registered Nurse 09/09/17 Ngozi Petty MD Radiation Oncologist Radiation Oncology 02/05/19 Jose Roberto Marx MD Referring Physician Otolaryngology 02/05/19 documented as of this encounter
--- OUTSIDE RECORDS SUMMARY | 2024-06-14 23:31 | XMS_ITS | Encounter Summary ---
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 on file Not on natalie e documented as of this encounter Plan of Treatment Not on file documented as of this encounter Visit Diagnoses Not on filedocumented in this encounter Care Teams Family And Consumer Sciences Professor Relationship Specialty [place] [address] [facility] [address] [place] [address] Rheumatology 02/21/17 Lashay Downs, RN Registered Nurse Pain Management 06/17/17 Duke Do, RN Registered Nurse 09/09/17 Ngozi Petyt MD Radiation Oncologist Radiation Oncology 02/05/19 Jose Roberto Marx MD Referring Physician Otolaryngology 02/05/19 documented as of this encounter
--- OUTSIDE RECORDS SUMMARY | 2024-06-14 23:31 | XMS_ITS | Encounter Summary ---
Author Organization [facility] Healthcare Address [address] [place] [address] Care Team Providers Care Behavioral Health Case Manager Name Role Phone Criss Blanco MD Unavailable Lashay Downs RN Unavailable Unavailab Duke Goodwin RN Unavailable UnavailNgozi Husain MD Unavailable [phone] Jose Roberto Marx MD Unavailable [phone] Encounter Details Date Type Department Care Team (Late st Contact Info) Description 03/09/2019 9:06 AM CDT Anesthesia Event [facility] Operating Room [address] [place] [address] Saman Springer MD [address] [facility] [address] [place] [address] Riya Sung NP [address] [facility] [id number] [place] [address] Anesthesia Record Procedure Summary Procedure Name Responsible [...] file Legal Sex Male 12:56 AM BUSINESS SERVICES MANAGER Gender Identity Not on file Sexual Orientation Not on file 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 Headache ??? group home use of drug ??? Discogenic low back [...] OTHER MEDICAL hemorroids; Comments: Had done at [facility] in [place] ??? HX OTHER MEDICAL bladder infection ??? [...] -- -- Historical Provider, Notes: Not taking nyclsvkypyk-kgiuzinhs-asj C-Mn capsule -- -- Historical Provider, methotrexate 2.5 mg tablet -- -- Historical Provider, Notes: Not taking ndnhahqjprwh-Rn-hpxi-minerals 18-0.4 mg tablet -- -- Historical Provider, ranitidine (ZANTAC) 300 mg capsule -- -- Historical Provider, tamsulosin (FLOMAX) 0.4 mg extended release capsule -- -- Historical Provider, No current facility-administered medications for this encounter. Current Outpatient Medications: ??? biotin 10,000 mcg capsule ??? esomeprazole DR (NexIUM) 20 mg capsule ??? folic acid (FOLVITE) 1 mg tablet ??? bqyodzdbbva-nmkjriyci-qdp C-Mn capsule ??? nurhwmrcwpzz-Jm-ekus-minerals 18-0.4 mg tablet ??? ranitidine (ZANTAC) 300 [...] Medication protocol when under care of a TEAM MANAGER Planned anesthesia: General Informed Consent: Anesthesia plan [...] Diagnosis Comments UT AN PROCEDURE PLACEHOLDER Routine 03/09/2019 9:32 AM [...] between attempts: BVM Planned trial extubation: yes UT AN ELECTIVE ENDOTRACHEAL AIRWAY Routine 03/09/2019 9:32 [...] 03/09/2019 documented in this encounter Care Teams Behavioral Health Case Manager Relationship Specialty [place] [address] [address] Rheumatology 02/21/17 Lashay Downs, GAY Registered Nurse Pain Management 06/17/17 Duke Do, RN Registered Nurse 09/09/17 Ngozi Petty MD Radiation Oncologist Radiation Oncology 02/05/19 Jose Roberto Marx MD Referring Physician Otolaryngology 02/05/19 documented as of this encounter
--- OUTSIDE RECORDS SUMMARY | 2024-06-14 23:31 | XMS_ITS | Encounter Summary ---
Author Organization [facility] Address [address] [place] [address] Phone Care Team Providers Care Electric Hoist Operator Name Role Phone Criss Blanco MD Unavailable Lashay Downs RN Unavailable Unavailab Duke Goodwin RN Unavailable UnavailNgozi Husain MD Unavailable [phone] Jose Roberto Marx MD Unavailable [phone] Reason for Referral * (Routine) - Closed Specialty Diagnoses / Procedures Referred By Alcira forrest Referred To Contact Diagnoses Dysphonia Procedures PLATEN PRESS OPERATOR videostroboscopy - Nathanael Valdez MD Phone: tel: fax: [facility] (All Locations) Referral ID Status Reason Start Date Expiration Date Visits Re quested Visits Authorized [id number] Closed 06/19/2019 12/28/2020 1 1 INTERN Encounter Details Date Type Department Care Team (Late st Contact Info) Description 06/19/2019 Orders Only [facility] Otolaryngology [address] 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 on file Not on natalie e documented as of this encounter Plan of Treatment Not on file documented as of this encounter Visit Diagnoses Diagnosis Dysphonia- Primary documented in this encounter Orders PLATEN PRESS OPERATOR Count Last Ordered Date First Orde red Date PLATEN PRESS OPERATOR VIDEOSTROBOSCOPY 1 06/23/2019 documented in this encounter Care Teams Electric Hoist Operator Relationship Specialty [place] [address] [facility] [address] [place] [address] Rheumatology 02/21/17 Lashay Downs, RN Registered Nurse Pain Management 06/17/17 Duke Do, RN Registered Nurse 09/09/17 Ngozi Petty MD Radiation Oncologist Radiation Oncology 02/05/19 Jose Roberto Marx MD Referring Physician Otolaryngology 02/05/19 documented as of this encounter
--- OUTSIDE RECORDS SUMMARY | 2024-06-14 23:32 | XMS_ITS | Encounter Summary ---
Author Organization [facility] Healthcare Address [address] [place] [address] Care Team Providers Care Call Center Supervisor Name Role Phone Criss Blanco MD Unavailable Lashay Downs RN Unavailable Unavailab Duke Goodwin RN Unavailable UnavailNgozi Husain MD Unavailable [phone] Jose Roberto Marx MD Unavailable [phone] Encounter Details Date Type Department Care Team (Late st Contact Info) Description 02/16/2019 10:05 AM CDT - 02/16/2019 11:30 AM CDT Surgery [facility] Operating Room [address] [place] [address] Nathanael Valdez MD [address] [place] [address] Suspension microlaryngoscopy with KTP laser treatment Surgery Details Date/Time Status Location OR Service Patient Class Case Class Case Type Trauma Case? 02/16/2019 10:[address] 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 He has had [...] surgery if desired.. Nathanael Valdez MD, FACS Fisheries Technical Officer [facility] Division of Laryngology Department of Otolaryngology--Head & Neck Surgery Portions of this note were dictated using M*Modal Fluency Direct. Honing Machine Operator variances may occur. I have seen and [...] Preoperative Assessment and Planning CPAP Clinic Location: [facility] The night before your surgery: * [...] Don't take on day of surgery ??? eskqqonbkuo-mrlnejtuf-qjy C-Mn capsule Stop taking 1 week prior to surgery ??? zdqjfmnecixi-Rt-pbtp-minerals 18-0.4 mg tablet Stop taking 1 week [...] your surgery: Vitamin E, Fish Oil (Lovaza, [place] 3), Herbal medicines, Diet Pills ?? If [...] 1 mg by mouth every morning ??? iucaksblygf-ttngffmaw-tnm C-Mn capsule Take 1 capsule by mouth every morning ??? xosslpinweub-Kd-ngww-minerals 18-0.4 mg tablet Take 1 tablet by [...] Directive: Patient does not have advance directive Communication/Water Project Manager Needs Communication Needs: Glasses Patient's Preferred Language: Kuwaiti Assistive Devices/DME: Eyeglasses Hearing - Right Ear: [...] 2 days of your surgery, please call [phone] and ask for your surgeon's office José [...] results best viewed via link to PDF [facility] [place] [address] SURGICAL PATHOLOGY REPORT FINAL Patient Name: ?? PASQUALE SANCHEZ Gender: ??M : ??1945 (Age: 73) Address: ??[address] [place] [address] ??[id number] Hospital #: ??[id number] Taken:02/16/2019 Received:02/16/2019 Reported: 02/18/2019 Patient Type: WC SDS Client ?[facility] Service: Surgery Location: [facility] Physician(s): ??Nathanael Valdez M.D. ZOILA Steward [...] for this case was performed at [facility], Department of Surgical Pathology, [address] [facility], [place] [phone], ??[facility], [place] ??[address] ?? CLIA # [id number] Waqas Olvera M.D (Leon)., Ph.D. History: The [...] determined by the Surgical Pathology Department at [facility] as part of an ongoing business quality assurance analyst program and in compliance [...] by the Surgical Pathology Department of [facility]. ??It has not been cleared or approved by the U. S. Food and Drug Administration. IMAGES AND SCANNED DOCUMENTS, IF INCLUDED, ONLY VIEWABLE IN PDF VERSION OF REPORT Nathanael Valdez MD LAB PATHOLOGY ORDERABLES Final Result PATHOLOGY [facility] [phone] documented in this encounter Visit Diagnoses Diagnosis [...] 02/16/2019 documented in this encounter Care Teams Call Center Supervisor Relationship Specialty [place] [address] [facility] [address] [place] [address] Rheumatology 02/21/17 Lashay Downs, RN Registered Nurse Pain Management 06/17/17 Duke Do, RN Registered Nurse 09/09/17 Ngozi Petty MD Radiation Oncologist Radiation Oncology 02/05/19 Jose Roberto Marx MD Referring Physician Otolaryngology 02/05/19 documented as of this encounter
--- OUTSIDE RECORDS SUMMARY | 2024-06-14 23:32 | XMS_ITS | Encounter Summary ---
Author Organization [facility] Address [address] [place] [address] Care Team Providers Care Cuff Setter Lockstitch Name Role Phone Criss Blanco MD Unavailable Lashay Downs RN Unavailable Unavailab Duke Goodwin RN Unavailable Unavailabl e Reason for Referral * (Routine) - Closed Specialty Diagnoses / Procedures Referred By Contac t Referred To Contact Diagnoses Encounter for other preprocedural examination Procedures ECG 12 lead Viraj Romeo PA Phone: tel: fax: [address] [phone] Referral ID Status Reason Start Date Expiration Date Visits Re quested Visits Authorized [id number] Closed 01/06/2019 07/17/2020 1 1 Reason for Visit * (Routine) - Closed Specialty Diagnoses / Procedures Referred By Contac t Referred To Contact Diagnoses Encounter for other preprocedural examination Procedures ECG 12 lead Viraj Romeo PA Phone: tel: fax: [address] [phone] Referral ID Status Reason Start Date Expiration Date Visits Re quested Visits Authorized [id number] Closed 01/06/2019 07/17/2020 1 1 Encounter Details Date Type Department Care Team (Late st Contact Info) Description 01/06/2019 8:45 AM CDT - 01/06/2019 11:59 PM CDT Hospital Encounter [facility] Cardiology [address] [place] [address] Ariel Wiggins MD [address] [place] [address] Virja Romeo PA [address] [place] [address] Encounter for other preprocedural examination Discharge Disposition: [...] on file Legal Sex Male 12:56 AM SINGEING TORCH OPERATOR Gender Identity Not on file Sexual [...] PM CDT) 01/06/2019 9:12 AM CDT Narrative [facility] - 01/06/2019 9:48 PM CDT Vent Rate: 57 bpm RR Interval: 1048 msec NC Interval: 186 msec QRS Duration: 90 msec QT Interval: 396 msec QTC Interval: 390 msec P-R-T [place]: 23 - 4 - 58 degrees SINUS BRADYCARDIA NONSPECIFIC T-WAVE ABNORMALITY BORDERLINE ECG Electronically Signed By: Juan R Muñiz MD us Viraj CUMMINGS ECG ORDERABLES Final Result [facility] documented in this encounter Visit Diagnoses Diagnosis Encounter for other preprocedural examination documented in this encounter Care Teams Cuff Setter Lockstitch Relationship Specialty [place] [address] [facility] [address] [place] [address] Rheumatology 02/21/17 Lashay Downs, RN Registered Nurse Pain Management 06/17/17 Duke oD, RN Registered Nurse 09/09/17 documented as of this encounter
--- OUTSIDE RECORDS SUMMARY | 2024-06-14 23:32 | XMS_ITS | Encounter Summary ---
Author Organization [facility] Healthcare Address [address] [place] [address] Care Team Providers Care Kicking Machine Operator Name Role Phone Criss Blanco MD Unavailable Lashay Downs RN Unavailable Unavailab Duke Goodwin RN Unavailable UnavailNgozi Husain MD Unavailable [phone] Jose Roberto Marx MD Unavailable [phone] Encounter Details Date Type Department Care Team (Late st Contact Info) Description 02/16/2019 10:27 AM CDT Anesthesia Event [facility] Operating Room [address] [place] [address] [place] Roy MD [address] [facility] [address] [place] [address] Melissa Terrazas NP [address] [facility] [phone] [place] [address] Anesthesia Record Procedure Summary Procedure Name Responsible [...] on file Legal Sex Male 12:56 AM TEST CONSULTANT Gender Identity Not on file Sexual Orientation Not on file 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 Seropositive rheumatoid arthritis of multiple sites ([facility]) ??? Headache ??? long-term use of drug ??? Discogenic low back pain ??? Shortness of breath ??? Atypical migraine ??? Calculus of kidney ??? Dyspepsia ??? Squamous cell carcinoma of larynx ([facility]) Past Medical History: Diagnosis Date ??? Arthritis [...] done at [facility] [address] [facility] in [place] ??? HX OTHER MEDICAL bladder infection ??? HX OTHER MEDICAL kidney stone ??? Malignant neoplasm of prostate ([facility]) 1998 prostate Past Surgical History: Procedure Laterality [...] capsule folic acid (FOLVITE) 1 mg tablet enuhdsyclev-rrynmvkyo-gvg C-Mn capsule zkzbqmsfcacd-Gl-ifja-minerals 18-0.4 mg tablet ranitidine (ZANTAC) 300 mg capsule tamsulosin (FLOMAX) 0.4 mg extended release capsule methotrexate 2.5 mg tablet No current facility-administered medications for this encounter. Current Outpatient Medications: ??? biotin 10,000 mcg capsule ??? esomeprazole DR (NexIUM) 20 mg capsule ??? folic acid (FOLVITE) 1 mg tablet ??? zqitalfkrhj-rkqpijbeq-wtm C-Mn capsule ??? mtyoulrvzbtm-Eo-etfe-minerals 18-0.4 mg tablet ??? ranitidine (ZANTAC) 300 [...] Medication protocol when under care of a GLUER AND WEDGER Planned anesthesia: General Team communication plan: oral [...] 02/16/2019 documented in this encounter Care Teams Kicking Machine Operator Relationship Specialty [place] [address] [address] Rheumatology 02/21/17 Lashay Downs, GAY Registered Nurse Pain Management 06/17/17 Duke Do, RN Registered Nurse 09/09/17 Ngozi Petty MD Radiation Oncologist Radiation Oncology 02/05/19 Jose Roberto Marx MD Referring Physician Otolaryngology 02/05/19 documented as of this encounter
--- OUTSIDE RECORDS SUMMARY | 2024-06-14 23:32 | XMS_ITS | Encounter Summary ---
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 on file Not on natalie e documented as of this encounter Plan of Treatment Not on file documented as of this encounter Visit Diagnoses Not on filedocumented in this encounter Care Teams Ultrasound Sonographer Relationship Specialty [place] [address] [facility] [address] [place] [address] Rheumatology 02/21/17 Lashay Downs, RN Registered Nurse Pain Management 06/17/17 Duke Do, RN Registered Nurse 09/09/17 Ngozi Petty MD Radiation Oncologist Radiation Oncology 02/05/19 Jose Roberto Marx MD Referring Physician Otolaryngology 02/05/19 documented as of this encounter
--- OUTSIDE RECORDS SUMMARY | 2024-06-14 23:32 | XMS_ITS | Encounter Summary ---
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 on file Not on natalie e documented as of this encounter Plan of Treatment Not on file documented as of this encounter Visit Diagnoses Not on filedocumented in this encounter Care Teams Welding Machine Operator Ultrasonic Relationship Specialty [place] [address] [facility] [address] [place] [address] Rheumatology 02/21/17 Lashay Downs, RN Registered Nurse Pain Management 06/17/17 Duke Do, RN Registered Nurse 09/09/17 Ngozi Petty MD Radiation Oncologist Radiation Oncology 02/05/19 Jose Roberto Marx MD Referring Physician Otolaryngology 02/05/19 documented as of this encounter
--- OUTSIDE RECORDS SUMMARY | 2024-06-14 23:32 | XMS_ITS | Encounter Summary ---
Author Organization [facility] Address [address] [place] [address] Phone Care Team Providers Care Railroad Emergency Services Manager Name Role Phone Criss Blanco MD Unavailable Lashay Downs RN Unavailable Unavailab Duke Goodwin RN Unavailable UnavailNgozi Husain MD Unavailable [phone] Jose Roberto Marx MD Unavailable [phone] Reason for Visit * Reason Comments Squamous Cell Carcinoma Encounter Details Date Type Department Care Team (Late st Contact Info) Description 02/05/2019 3:15 PM CDT Office Visit [facility] Otolaryngology [address] [facility] [address] [place] [phone] Nathanael Valdez MD [address] [place] [address] Squamous cell carcinoma of larynx (CMS/HCC) (Primary [...] file 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 He has had [...] surgery if desired.. Nathanael Valdez MD, FACS Quality Control Chemist [facility] Voice [facility] Airway [facility] Division of Laryngology Department of Otolaryngology--Head & Neck Surgery Portions of this note were dictated using M*Modal Fluency Direct. Stunner And Shackler variances may occur. I have seen and [...] Dysphonia documented in this encounter Care Teams Railroad Emergency Services Manager Relationship Specialty [place] [address] [facility] [address] [place] [address] Rheumatology 02/21/17 Lashay Downs, RN Registered Nurse Pain Management 06/17/17 Duke Do, RN Registered Nurse 09/09/17 Ngozi Petty MD Radiation Oncologist Radiation Oncology 02/05/19 Jose Roberto Marx MD Referring Physician Otolaryngology 02/05/19 documented as of this encounter
--- OUTSIDE RECORDS SUMMARY | 2024-06-14 23:32 | XMS_ITS | Encounter Summary ---
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) Miscellaneous, Not In File [facility] Advanced Medicine Radiation Oncology [address] [place] [address] [place] [address] Phone: tel: fax: Referral ID Status Reason Start Date Expiration Date V isits Requested Visits Authorized [id number] Closed Specialty Services Required 01/28/2019 08/08/2020 1 1 Encounter Details Date Type Department Care Team (Late st Contact Info) Description 01/30/2019 1:45 PM CDT Consult [facility] Radiation Oncology [address] [facility] [address] [address] Ngozi Petty MD [facility] [place] [address] Squamous cell carcinoma of larynx [...] file 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 01/22/19 PET scan ([facility]) Subtle asymmetric nodular thickening of the [...] placement of a feeding tube. We discussed manager long term care side effects of radiation therapy, which may [...] questions or concerns. Sincerely, Ngozi Petty MD Legal Operations Manager of Radiation Oncology documented in this encounter [...] documented as of this encounter Care Teams Tuna Purse Seiner Relationship Specialty [place] [address] [place] [address] Rheumatology 02/21/17 Lashay Downs, RN Registered Nurse Pain Management 06/17/17 Duke Do, RN Registered Nurse 09/09/17 documented as of this encounter
--- OUTSIDE RECORDS SUMMARY | 2024-06-14 23:32 | XMS_ITS | Encounter Summary ---
Author Organization [facility] Healthcare Address [address] [place] [address] Care Team Providers Care International Project Engineer Name Role Phone Criss Blanco MD Unavailable Lashay Downs RN Unavailable Unavailab Duke Goodwin RN Unavailable Unavailabl e Encounter Details Date Type Department Care Team (Late st Contact Info) Description 01/28/2019 Telephone [facility] Radiation Oncology [address] [address] Ngozi Petty MD [address] [place], [place] [id number] Social History Tobacco Use Types Packs/Day Years Used Date Smoking Tobacco: Former Cigarettes 2 30 Smokeless Tobacco: Never Comments:Smoking History Pac ks/day: 2 Packs Alcohol Use Standard Drinks/Week Comments Yes 2 (1 standard drink = 0.6 oz pur e alcohol) Sex and Gender Information Value Date Recorded Sex Assigned at Not on file 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 Patient to bring PET CT scan from [facility]/ documented in this encounter Plan of Treatment Not on file documented as of this encounter Visit Diagnoses Not on filedocumented in this encounter Care Teams International Project Engineer Relationship Specialty [place] [address] [facility] [address] [place] [address] Rheumatology 02/21/17 Lashay Downs, RN Registered Nurse Pain Management 06/17/17 Duke Do, RN Registered Nurse 09/09/17 documented as of this encounter
--- OUTSIDE RECORDS SUMMARY | 2024-06-14 23:32 | XMS_ITS | Encounter Summary ---
Author Organization [facility] Healthcare Address [address] [place] [address] Care Team Providers Care Management Intern Name Role Phone Criss Blanco MD Unavailable Lashay Downs RN Unavailable Unavailab Duke Goodwin RN Unavailable UnavailNgozi Husain MD Unavailable [phone] Jose Roberto Marx MD Unavailable [phone] Grey Tomas MD Primary Care Provider [phone] Encounter Details Date Type Department Care Team (Late st Contact Info) Description 01/06/2019 Orders Only [facility] Health Information Management [address] [place] [address] Viraj Romeo, PA [address] [place] [address] Social History Tobacco Use Types Packs/Day Years Used Date Smoking Tobacco: Former Cigarettes 2 30 Smokeless Tobacco: Never Comments:Smoking History Pac ks/day: 2 Packs Alcohol Use Standard Drinks/Week Comments Yes 2 (1 standard drink = 0.6 oz pur e alcohol) Sex and Gender Information Value Date Recorded Sex Assigned at Not on file 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 Gender Identity Not on file Sexual Orientation Not on file documented as of this encounter Plan of Treatment Not on file documented as of this encounter Visit Diagnoses Not on filedocumented in this encounter Additional Health Concerns Infection Onset Date Last Indicated Resolved Time COVID: Suspected 10/23/2023 10/23/2023 10/24/2023 3:06 AM CDT documented as of this encounter Care Teams Management Intern Relationship Specialty Start Date End Date Grey Tomas MD PCP - General Family Practice 07/27/22 [place] [address] [facility] [address] [place] [address] Rheumatology 02/21/17 Lashay Downs, RN Registered Nurse Pain Management 06/17/17 Duke Do, RN Registered Nurse 09/09/17 Ngozi Petty MD Radiation Oncologist Radiation Oncology 02/05/19 Jose Roberto Marx MD Referring Physician Otolaryngology 02/05/19 documented as of this encounter
--- OUTSIDE RECORDS SUMMARY | 2024-06-14 23:32 | XMS_ITS | Encounter Summary ---
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 [address] [place] [address] Rheumatology 02/21/17 Lashay Downs, RN Registered Nurse Pain Management 06/17/17 Duke Do, RN Registered Nurse 09/09/17 documented as of this encounter
--- OUTSIDE RECORDS SUMMARY | 2024-06-14 23:32 | XMS_ITS | Encounter Summary ---
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 on file Not on natalie e documented as of this encounter Plan of Treatment Not on file documented as of this encounter Visit Diagnoses Not on filedocumented in this encounter Care Teams Accounting Director Relationship Specialty [place] [address] [facility] [address] [place] [address] Rheumatology 02/21/17 Lashay Downs, RN Registered Nurse Pain Management 06/17/17 Duke Do, RN Registered Nurse 09/09/17 Ngozi Petty MD Radiation Oncologist Radiation Oncology 02/05/19 Jose Roberto Marx MD Referring Physician Otolaryngology 02/05/19 documented as of this encounter
--- OUTSIDE RECORDS SUMMARY | 2024-06-14 23:32 | XMS_ITS | Encounter Summary ---
Author Organization [facility] Address [address] [address] Care Team Providers Care Boiler Operator Helper Name Role Phone Criss Blanco MD Unavailable Lashay Downs RN Unavailable Unavailab Duke Goodwin RN Unavailable UnavailNgozi Husain MD Unavailable [phone] Jose Roberto Marx MD Unavailable [phone] Reason for Referral * Injectables (Routine) - Closed Specialty Diagnoses / Procedures Referred By Contac t Referred To Contact Diagnoses Primary osteoarthritis of right knee Procedures Large Joint (Hip, Knee, Shoulder) Injection: R knee Iris Patten PA Phone: tel: fax: [facility] Referral ID Status Reason Start Date Expiration Date Visits Re quested Visits Authorized [id number] Closed 03/12/2019 09/20/2020 1 1 * Diagnostic Imaging (Routine) - Closed Specialty Diagnoses / Procedures Referred By Contac t Referred To Contact Diagnoses Primary osteoarthritis of right knee Procedures XR Pelvis 1 or 2 Views Iris Patten PA Phone: tel: fax: Referral ID Status Reason Start Date Expiration Date Visits Re quested Visits Authorized [id number] Closed 02/24/2019 09/04/2020 1 1 * Diagnostic Imaging (Routine) - Closed Specialty Diagnoses / Procedures Referred By Alcira forrest Referred To Contact Diagnoses Primary osteoarthritis of right knee Procedures XR Knee Right 4 or More Views Iris Patten PA Phone: tel: fax: Referral ID Status Reason Start Date Expiration Date Visits Re quested Visits Authorized [id number] Closed 02/24/2019 09/04/2020 1 1 Reason for Visit * Reason Comments Pain Encounter Details Date Type Department Care Team (Late st Contact Info) Description 02/24/2019 8:15 AM CDT Office Visit 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 He also has no past medical history of Acute respiratory failure requiring reintubation ([facility]), Awareness under anesthesia, Delayed emergence from [...] the following prescription(s): biotin, esomeprazoledr, folic acid, wqlgmidvzrb-iaobpgqsp-pwe c-mn, methotrexate, wjoojmmazajl-ee-jxsc-minerals, ranitidine, tamsulosin, and hydrocodone-acetaminophen. ALLERGIES He has [...] PM CDT Primary osteoarthritis of right knee VA ARTHROCENTESIS ASPIR&/INJ MAJOR JT/BURSA W/O US Routine [...] [facility] IMG XR PROCEDURES Final Result * VA ARTHROCENTESIS ASPIR&/INJ MAJOR JT/BURSA W/O US (02/24/2019 [...] documented as of this encounter Care Teams Boiler Operator Helper Relationship Specialty [place] [address] [facility] [address] [place] [address] Rheumatology 02/21/17 Lashay Downs, RN Registered Nurse Pain Management 06/17/17 Duke Do, RN Registered Nurse 09/09/17 Ngozi Petty MD Radiation Oncologist Radiation Oncology 02/05/19 Jose Roberto Marx MD Referring Physician Otolaryngology 02/05/19 documented as of this encounter
--- OUTSIDE RECORDS SUMMARY | 2024-06-14 23:32 | XMS_ITS | Encounter Summary ---
Author Organization [facility] Healthcare Address [address] [place] [address] Care Team Providers Care Political Scientist Name Role Phone Criss Blanco MD Unavailable Lashay Downs RN Unavailable Unavailab Duke Goodwin RN Unavailable UnavailNgozi Husain MD Unavailable [phone] Jose Roberto Marx MD Unavailable [phone] Encounter Details Date Type Department Care Team (Latest Contact Info) Description 02/16/2019 8:05 AM CDT - 02/16/2019 1:29 PM CDT Hospital Encounter [facility] Operating Room [address] [place] [address] Nathanael Valdez MD [address] [place] [address] Squamous cell carcinoma of larynx ([facility]/HCC) Discharge Disposition: Discharge to home or [...] file Legal 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 He has had [...] surgery if desired.. Nathanael Valdez MD, FACS Sewing Machine Adjuster [facility] Voice [facility] Airway [facility] Division of Laryngology Department of Otolaryngology--Head & Neck Surgery Portions of this note were dictated using M*Modal Fluency Direct. Maintenance Department Manager variances may occur. I have seen [...] Assessment and Planning CPAP Clinic Location: [facility] The night before your surgery: [...] Don't take on day of surgery ??? apwvrplnmln-uhhlzqasz-rxx C-Mn capsule Stop taking 1 week prior to surgery ??? zgzzuiofcsmh-Zh-gtlo-minerals 18-0.4 mg tablet Stop taking 1 week [...] your surgery: Vitamin E, Fish Oil (Lovaza, [place] 3), Herbal medicines, Diet Pills ?? If [...] 1 mg by mouth every morning ??? fpmqukjnnvm-lafjiikxm-lbw C-Mn capsule Take 1 capsule by mouth every morning ??? kohjyldkbuny-Kp-hlxp-minerals 18-0.4 mg tablet Take 1 tablet by [...] Directive: Patient does not have advance directive Communication/Lead Electrician Needs Communication Needs: Glasses Patient's Preferred Language: Turkmen Assistive Devices/DME: Eyeglasses Hearing - Right Ear: [...] 2 days of your surgery, please call [phone] and ask for your surgeon's office José [...] [facility] [place] [address] SURGICAL PATHOLOGY REPORT FINAL Patient Name: ?? PASQUALE SANCHEZ Gender: ??M : ??1945 (Age: 73) Address: ??[address] [place] [address] Hospital #: ??[id number] Taken:02/16/2019 Received:02/16/2019 Reported: 02/18/2019 Patient Type: WC SDS Client ?[facility] Service: Surgery Location: [facility] Physician(s): ??Nathanael Valdez M.D. ZOILA Steward Diagnosis: [...] this case was performed at [facility], Department of Surgical Pathology, #[address] [facility], [place] [id number], ??[facility], [place] ??[address] ?? CLIA # [id number] Waqas Olvera M.D (Leon)., Ph.D. History: The [...] by the Surgical Pathology Department at [facility] as part of an ongoing software quality engineer program and in compliance with federally mandated [...] the Surgical Pathology Department of [facility]. ??It has not been cleared or approved by the U. S. Food and Drug Administration. IMAGES AND SCANNED DOCUMENTS, IF INCLUDED, ONLY VIEWABLE IN PDF VERSION OF REPORT Nathanael Valdez MD LAB PATHOLOGY ORDERABLES Final Result PATHOLOGY [facility] [phone] documented in this encounter Visit Diagnoses Diagnosis [...] 02/16/2019 documented in this encounter Care Teams Political Scientist Relationship Specialty [place] [address] [facility] [address] [place] [address] Rheumatology 02/21/17 Lashay Downs, RN Registered Nurse Pain Management 06/17/17 Duke Do, RN Registered Nurse 09/09/17 Ngozi Petty MD Radiation Oncologist Radiation Oncology 02/05/19 Jose Roberto Marx MD Referring Physician Otolaryngology 02/05/19 documented as of this encounter
--- OUTSIDE RECORDS SUMMARY | 2024-06-14 23:33 | XMS_ITS | Encounter Summary ---
Author Organization [facility] Address [address] [facility] [address] [place] [address] Care Team Providers Care American Indian Policy Specialist Name Role Phone Criss Blanco MD Unavailable Lashay Downs RN Unavailable Unavailab Duke Goodwin RN Unavailable Unavailabl e Reason for Referral * Consultation (Routine) - Closed Specialty Diagnoses / Procedures Referred By Alcira t Referred To Contact Physical Therapy Diagnoses Lumbar spondylosis Timmy Bañuelos MD Phone: tel: fax: [address] [phone] Referral ID Status Reason Start Date Expiration Date V isits Requested Visits Authorized [id number] Closed Specialty Services Required 07/28/2018 02/06/2020 12 12 Question Answer PTRFR PT Evaluate and Treat Therapy options discussed with patient? Yes Location provided for therapy services is: Patient requested/Patient preferred Please select the performing region: [facility] [144] Comments Lumbar core non-op Frequency 2-3 x weekly Duration 4-6 weeks Physical therapy to include: core strengthening, stretching, balances training, and general aerobic conditioning; limited modalities as needed. May add pool therapy if appropriate. Teach a home exercise regimen. N YARN DRIER * Diagnostic Imaging (Routine) - Closed Specialty Diagnoses / Procedures Referred By Contac t Referred To Contact Diagnoses Discogenic low back pain Procedures XR Spine Lumbar Complete 4 View Timmy Bañuelos MD Phone: tel: fax: [facility] Referral ID Status Reason Start Date Expiration Date Visits Re quested Visits Authorized [id number] Closed 07/28/2018 02/06/2020 1 1 [address] [place]ER Reason for Visit * Reason Comments New Patient Pain Encounter Details Date Type Department Care Team (Late st Contact Info) Description 07/28/2018 10:15 AM SKEIN YARN DRIER Office Visit [facility] [address] [phone] Timmy Bañ[place] [address] [address] Lumbar spondylosis (Primary Dx) Social [...] on file Legal Sex Male 12:56 AM SKEIN YARN DRIER Gender Identity Not on file Sexual Orientation Not on file documented as of this encounter Last Filed Vital Signs Vital Sign Reading Time Taken Comments Blood Pressure 122/87 07/28/2018 10:52 AM SKEIN YARN DRIER Pulse - - Temperature - - Respiratory Rate - - Oxygen Saturation - - Inhaled Oxygen Concentration - - Weight 99.8 kg (220 lb) 07/28/2018 10:52 AM SKEIN YARN DRIER Height 185.4 cm (6' 1 ) 07/28/2018 10:52 AM SKEIN YARN DRIER Body Mass Index 29.03 07/28/2018 10:52 AM SKEIN YARN DRIER documented in this encounter Ordered Prescriptions Prescription [...] OTHER MEDICAL; and Malignant neoplasm of prostate ([facility]) (1998). PAST SURGICAL HISTORY He has a past surgical history that includes Other surgical history; Other surgical history (1988);and Other surgical history. MEDICATIONS He has a current medication list which includes the following prescription(s): biotin, diazepam, folic acid, glucosamine-chondroitin, hydrocodone- acetaminophen, hydrocodone-acetaminophen, meloxicam, methotrexate, methylprednisolone, methylprednisolone, qxskyjtrnoze-zb-ewwe-minerals, omeprazole, oxycodone-acetaminophen, potassium, ranitidine, tamsulosin, and tizanidine. [...] up in 6 week(s). Timmy Bañuelos MD N YARN DRIER documented in this encounter Plan of Treatment [...] Read Routine (OP Routine) 07/28/2018 11:18 AM SKEIN YARN DRIER Lumbar spondylosis documented in this encounter Results * XR Spine Lumbar Complete 4 View (07/28/2018 11:18 AM SKEIN YARN DRIER) Anatomical Region Laterality Modality Spine N/A Radiographic Corin ging Narrative 07/28/2018 11:51 AM SKEIN YARN DRIER AP, lateral, flexion-extension of the lumbar spine [...] myelopathy documented in this encounter Care Teams American Indian Policy Specialist Relationship Specialty [place] [address] [facility] [address] [place] [address] Rheumatology 02/21/17 Lashay Downs, RN Registered Nurse Pain Management 06/17/17 Duke Do, RN Registered Nurse 09/09/17 documented as of this encounter
--- OUTSIDE RECORDS SUMMARY | 2024-06-14 23:33 | XMS_ITS | Encounter Summary ---
Author Organization [facility] Healthcare Address [address] [place] [address] Care Team Providers Care Plan Nurse Name Role Phone Criss Blanco MD Unavailable Lashay Downs RN Unavailable Unavailab Duke Goodwin RN Unavailable Unavailabl e Reason for Visit * Reason Comments PT Treatment Encounter Details Date Type Department Care Team (Late st Contact Info) Description 08/01/2018 10:30 AM BASKET OPERATOR Therapy [facility] Physical Therapy [address] [facility] [place] [address] Ara Avery PTA Lumbar spondylosis (Primary Dx) [...] on file Legal 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 Male 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
--- OUTSIDE RECORDS SUMMARY | 2024-06-14 23:33 | XMS_ITS | Encounter Summary ---
Author Organization [facility] Healthcare Address [address] [place] [address] Care Team Providers Care Trauma Therapist Name Role Phone Criss Blanco MD Unavailable Lashay Downs RN Unavailable Unavailab Duke Goodwin RN Unavailable Unavailabl e Reason for Visit * Reason Comments Sore Throat Encounter Details Date Type Department Care Team (Late st Contact Info) Description 04/18/2018 7:35 PM TRADE MARK ATTORNEY - 04/18/2018 10:05 PM [facility] Emergency [facility] Emergency Department [address] [place] [address] Viraj Andrade MD 1 [facility] [place] [address] Viral pharyngitis (Primary Dx) Discharge Disposition: Discharge [...] on file Legal Sex Male 12:56 AM TRADE MARK ATTORNEY Gender Identity Not on file Sexual Orientation Not on file documented as of this encounter Last Filed Vital Signs Vital Sign Reading Time Taken Comments Blood Pressure 124/84 04/18/2018 8:09 PM TRADE MARK ATTORNEY Pulse 81 04/18/2018 8:09 PM TRADE MARK ATTORNEY Temperature 36.8 ??C (98.3 ??F) 04/18/2018 8:08 PM CS T Respiratory Rate 16 04/18/2018 8:09 PM TRADE MARK ATTORNEY Oxygen Saturation 97% 04/18/2018 8:09 PM TRADE MARK ATTORNEY Inhaled Oxygen Concentration - - Weight 99.8 kg (220 lb) 04/18/2018 8:08 PM TRADE MARK ATTORNEY Height 185.4 cm (6' 1 ) 04/18/2018 8:08 PM TRADE MARK ATTORNEY Body Mass Index 29.03 04/18/2018 8:08 PM TRADE MARK ATTORNEY documented in this encounter Discharge Instructions * Discharge Instructions* Viraj Andrade MD - 04/18/2018 9:56 PM TRADE MARK ATTORNEY Please return to the ED if you developed high fever, uncontrolled nausea vomiting, or for any otherconcerns. Please keep appointment with urologist on Saturday. Recommend Flonase as directed by the bottle for symptom control. Recommend pseudoephedrine as recommended by the package insert for symptom control. For pain control of not taking pseudoephedrine please consider naproxen 2 tabs twice a day. E MARK ATTORNEY * Attachments The following attachments cannot be sent through Care Everywhere. * Pharyngitis (AfterCare(R) Instructions(ER/ED)) (Bengali) * Laryngitis (General Information) (Bengali) documented in this encounter Medications at Time [...] needed for pain. 90 tablet 10/04/2017 01/30/2019 tsjipzuxgled-Av-t foreign-minerals 18-0.4 mg tabletIndications :Mineral Deficiency Prevention,Vitami [...] states that he has tried several different rzjq-skv-rfaniia medications without much effect. He is worried about a possible bacterial infection and to call the office to prescribe him Keflex for a possibleUTI. Upon further questioning the patient denies any dysuria. Patient History Patient Active Problem List Diagnosis Date Noted ??? 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 half-way use of drug 11/21/2016 ??? 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 Shortness [...] OTHER MEDICAL hemorroids; Comments: Had done at [facility] in [place] ??? HX OTHER MEDICAL bladder infection ??? HX OTHER MEDICAL kidney stone ??? Malignant neoplasm of prostate ([facility]) 1998 prostate Past Surgical History: [...] I did however provide alternative options for bgsx-pem-asidldj symptomatic relief which she was grateful for. Initially, I also provided him information which seek further distal care or return to the ED. All questions were answered prior to discharge patient was discharged in stable condition back to home with appropriate outpatient follow-up. Viral pharyngitis Viraj Andrade MD 04/19/18 0031 E MARK ATTORNEY * Viraj Hendricks RN - 04/18/2018 8:07 PM CST Cold and sore throat x 6 days. NAD. E MARK ATTORNEY documented in this encounter Plan of Treatment Not on file documented as of this encounter Procedures Procedure Name Priority Date/Time Associated Diagnosis Comments INFLUENZA A/B ANTIGEN STAT 04/18/2018 8:15 PM TRADE MARK ATTORNEY GROUP A STREP, RAPID SCREEN GEN LAB STAT 04/18/2018 8:15 PM TRADE MARK ATTORNEY THROAT CULTURE STAT 04/18/2018 8:15 PM TRADE MARK ATTORNEY documented in this encounter Results * Throat culture (04/18/2018 8:15 PM TRADE MARK ATTORNEY) Report Final Report: No growth of pathogens. ANDRE ANSARI) Comment:Testing performed by : [facility], [address] [facility] [address] Throat 04/18/2018 8:15 PM TRADE MARK ATTORNEY 04/19/2018 4:06 AM TRADE MARK ATTORNEY Narrative ANDRE ANSARI) - 04/20/2018 8:05 AM TRADE MARK ATTORNEY Testing performed by [facility] Microbiology Laboratory ([phone]). Clive Mccormack MD LAB MICROBIOLOGY - [facility] ORDERABLES Final Result ANDRE ANSARI) 1 [facility] [place] [address] * Influenza A/B Antigen Nasopharyngeal (04/18/2018 8:15 PM TRADE MARK ATTORNEY) Influenza A Ag Negative MARY MORAES (BRE) [...] reviewed 2018 Nasopharyngeal 04/18/2018 8: 15 PM TRADE MARK ATTORNEY 04/18/2018 8:20 PM TRADE MARK ATTORNEY Narrative ANDRE MORAES (BRE) - 04/18/2018 8:42 PM TRADE MARK ATTORNEY Viraj Andrade MD LAB MICROBIOLOGY - GENERAL O RDERABLES Final Result Performing Organization Address City/[facility]/ZIP Co de Phone Number ANDRE MORAES (BRE) 1 [facility] [place] [place] [address] * Group A Strep, rapid screen with reflex (04/18/2018 8:15 PM TRADE MARK ATTORNEY) Rapid Strep A Negative Negative CERSTEFANIA MORAES (BRE) Throat 04/18/2018 8:15 PM TRADE MARK ATTORNEY 04/18/2018 8:20 PM TRADE MARK ATTORNEY Narrative ANDRE MORAES (BRE) - 04/18/2018 8:41 PM TRADE MARK ATTORNEY Viraj Andrade MD LAB BODY FLUIDS AND STOOLS O RDERABLES Final Result ANDRE MORAES (BRE) 1 [facility] [place] [place] [address] documented in this encounter Visit Diagnoses Diagnosis Viral pharyngitis- Primary Acute pharyngitis documented in this encounter Care Teams Trauma Therapist Relationship Specialty [place] [address] [address] Rheumatology 02/21/17 Lashay Downs, GAY Registered Nurse Pain Management 06/17/17 Duke Do, RN Registered Nurse 09/09/17 documented as of this encounter
--- OUTSIDE RECORDS SUMMARY | 2024-06-14 23:33 | XMS_ITS | Encounter Summary ---
Author Organization [facility] Healthcare Address [address] [place] [address] Care Team Providers Care News Operations Manager Name Role Phone Criss Blanco MD Unavailable Lashay Downs RN Unavailable Unavailab Duke Goodwin RN Unavailable Unavailabl e Encounter Details Date Type Department Care Team (Latest Contact Info) Description 06/04/2018 11:11 AM MANAGER OPERATIONS AND PROCUREMENT Hospital Encounter [facility] OP Anjel Caballero MD [address] [facility] [address] [address] Calculus of kidney Social History Tobacco Use Types Packs/Day Years Used Date Smoking Tobacco: Former Cigarettes 2 30 Smokeless Tobacco: Never Comments:Smoking History Pac ks/day: 2 Packs Alcohol Use Standard Drinks/Week Comments Yes 2 (1 standard drink = 0.6 oz pur e alcohol) Sex and Gender Information Value Date Recorded Sex Assigned at Not on file Legal Sex Male 12:56 AM MANAGER OPERATIONS AND PROCUREMENT Gender Identity Not on file Sexual Orientation [...] needed for pain. 20 tablet 04/21/2018 02/06/2019 sneziwhfzaum-Mf-h foreign-minerals 18-0.4 mg tabletIndications :Mineral Deficiency Prevention,Vitami [...] 1 VIEW Routine 06/04/2018 11:18 AM MANAGER OPERATIONS AND PROCUREMENT documented in this encounter Results * XR Abdomen Ap 1 Vw (06/04/2018 11:18 AM MANAGER OPERATIONS AND PROCUREMENT) Anatomical Region Laterality Modality Body, Abdomen N/A Radiographic Corin ging 06/04/2018 11:1 8 AM MANAGER OPERATIONS AND PROCUREMENT Impressions 06/04/2018 1:08 PM MANAGER OPERATIONS AND PROCUREMENT ??Several small stones suspected over both kidneys. THIS IS AN ELECTRONICALLY VERIFIED FINAL REPORT 06/04/2018 1:06 PM - Electronically signed by Kevin MCGUIRE D: ??06/04/2018 1:06 PM T: Report ID: [id number] Reading Location: ??[id number] [EOD] Narrative 06/04/2018 1:08 PM MANAGER OPERATIONS AND PROCUREMENT EXAM DESCRIPTION: ??Abdomen 1 View REASON FOR [...] Kevin Sol M.D. DA T: Report ID: [id number] Reading Location: [place] [address] [EOD] us Anjel Caballero MD IMG XR PROCEDURES Mariaa l Result documented in this encounter Visit Diagnoses Diagnosis Calculus of kidney documented in this encounter Care Teams News Operations Manager Relationship Specialty [place] [address] [facility] [address] [place] [address] Rheumatology 02/21/17 Lashay Downs, GAY Registered Nurse Pain Management 06/17/17 Duke Do, GAY Registered Nurse 09/09/17 documented as of this encounter
--- OUTSIDE RECORDS SUMMARY | 2024-06-14 23:33 | XMS_ITS | Encounter Summary ---
Author Organization [facility] Healthcare Address [address] [place] [address] Care Team Providers Care Motor Overhauler Name Role Phone Criss Blanco MD Unavailable Lashay Downs RN Unavailable Unavailab Duke Goodwin RN Unavailable Unavailabl e Reason for Visit * Reason Comments PT Treatment Encounter Details Date Type Department Care Team (Late st Contact Info) Description 08/08/2018 10:45 AM CLINICAL DIRECTOR Therapy [facility] Physical Therapy [address] [facility] [place] [address] Ara Avery PTA Lumbar spondylosis (Primary Dx) [...] file Legal Sex Male 12:56 AM CLINICAL DIRECTOR Gender Identity Not on file Sexual [...] Time: 10:45 End Time:11:25 Ara Avery PTA ICAL DIRECTOR documented in this encounter Plan of Treatment Not on file documented as of this encounter Visit Diagnoses Diagnosis Lumbar spondylosis- Primary Lumbosacral spondylosis without myelopathy documented in this encounter Care Teams Motor Overhauler Relationship Specialty [place] [address] [facility] [address] [place] [address] Rheumatology 02/21/17 Lashay Downs, RN Registered Nurse Pain Management 06/17/17 Duke Do, RN Registered Nurse 09/09/17 documented as of this encounter
--- OUTSIDE RECORDS SUMMARY | 2024-06-14 23:33 | XMS_ITS | Encounter Summary ---
Author Organization 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
--- OUTSIDE RECORDS SUMMARY | 2024-06-14 23:33 | XMS_ITS | Encounter Summary ---
Author Organization [facility] Healthcare Address [address] [place] [address] Care Team Providers Care Bioinformatics Support Specialist Name Role Phone Criss Blanco MD Unavailable Lashay Downs RN Unavailable Unavailab Duke Goodwin RN Unavailable Unavailabl e Reason for Visit * Reason Comments Vomiting Nausea Diarrhea Abdominal Pain Encounter Details Date Type Department Care Team (Late st Contact Info) Description 05/19/2018 7:04 PM COMMUNICATIONS ASSISTANT - 05/20/2018 2:48 AM COMMUNICATIONS ASSISTANT Emergency [facility] Emergency Department [address] [place] [address] Kevin Blackwell MD [facility] [place] [address] Colitis (Primary Dx); Viral gastroenteritis; Renal stone; [...] on file Legal Sex Male 12:56 AM COMMUNICATIONS ASSISTANT Gender Identity Not on file Sexual Orientation Not on file documented as of this encounter Last Filed Vital Signs Vital Sign Reading Time Taken Comments Blood Pressure 113/80 05/19/2018 7:16 PM COMMUNICATIONS ASSISTANT Pulse 82 05/19/2018 7:16 PM COMMUNICATIONS ASSISTANT Temperature 36.7 ??C (98 ??F) 05/19/2018 7:16 PM COMMUNICATIONS ASSISTANT Respiratory Rate 18 05/19/2018 7:16 PM COMMUNICATIONS ASSISTANT Oxygen Saturation 96% 05/19/2018 7:16 PM COMMUNICATIONS ASSISTANT Inhaled Oxygen Concentration - - Weight 102.1 kg (225 lb) 05/19/2018 7:16 PM COMMUNICATIONS ASSISTANT Height 185.4 cm (6' 1 ) 05/19/2018 7:16 PM COMMUNICATIONS ASSISTANT Body Mass Index 29.69 05/19/2018 7:16 PM COMMUNICATIONS ASSISTANT documented in this encounter Discharge Instructions * Attachments The following attachments cannot be sent through Care Everywhere. * Enteritis (Food Service Agent) (Tanzanian) * Kidney Stone w/ Colic (Tanzanian) documented in this encounter Medications at Time [...] ??? 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 long term use of drug 11/21/2016 ??? 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 Seropositive rheumatoid arthritis of multiple sites ([facility]) 07/03/2011 Class: Chronic ??? Shortness of breath [...] MEDICAL hemorroids; Comments: Had done at [facility] in [place] ??? HX OTHER MEDICAL bladder infection ??? HX OTHER MEDICAL kidney stone ??? Malignant neoplasm of prostate ([facility]) 1998 prostate Past Surgical History: Procedure Laterality [...] the [facility] [place] Microbiology Laboratory. 5. For questions about this culture, contact the Microbiology Laboratory at [phone]. Interpretive data was last revised on 2018. [...] the [facility] [place] [facility]. 5. For questions about this culture, contact the Microbiology Laboratory at [phone]. Interpretive data was last revised on 2018. [...] clear and fluent. Exam is non-focal. Procedures [facility] ED Course as of May 25 [...] words and actions. Kevin Blackwell MD 05/25/182040 UNICATIONS ASSISTANT * Leana De La Fuente, RN - 05/19/2018 7:16 PM CST 72 year old male presents to the Ed with complaints of N/V/D for the last 3 days. Pt states he is unable to keep anything down, has complaints of abd pain intermittent. Pt states he has had his flu shot. UNICATIONS ASSISTANT documented in this encounter Plan of Treatment Not on file documented as of this encounter Procedures Procedure Name Priority Date/Time Associated Diagnosis Comments CT ABDOMEN PELVIS W CONTRAST ED 05/20/2018 1:12 AM COMMUNICATIONS ASSISTANT LACTATE STAT 05/19/2018 7:46 PM COMMUNICATIONS ASSISTANT EGFR STAT 05/19/2018 7:46 PM COMMUNICATIONS ASSISTANT DIFFERENTIAL AUTO STAT 05/19/2018 7:4 6 PM COMMUNICATIONS ASSISTANT CBC WITH AUTO DIFFERENTIAL STAT 05/19/2018 7:46 PM COMMUNICATIONS ASSISTANT BLOOD CULTURE STAT 05/19/2018 7:46 PM COMMUNICATIONS ASSISTANT BLOOD CULTURE STAT 05/19/2018 7:46 PM COMMUNICATIONS ASSISTANT COMPREHENSIVE METABOLIC PANEL STAT 05/19/2018 7:46 PM COMMUNICATIONS ASSISTANT INFLUENZA A/B ANTIGEN STAT 05/19/2018 7:20 PM COMMUNICATIONS ASSISTANT documented in this encounter Results * CT Abdomen Pelvis W Contrast (05/20/2018 1:12 AM COMMUNICATIONS ASSISTANT) Anatomical Region Laterality Modality Body N/A Computed Tomogra phy 05/20/2018 7:08 AM COMMUNICATIONS ASSISTANT Impressions 05/20/2018 7:24 AM COMMUNICATIONS ASSISTANT 1. ??PERSISTENT 4 MM DISTAL RIGHT [...] signed by: Antelmo Travis 05/20/2018 7:[address] ABDOMEN PELVIS W CONTRAST HISTORY: [...] Res ult * eGFR (05/19/2018 7:46 PM COMMUNICATIONS ASSISTANT) eGFR 67 mL/min/1.7 3 m2 ANDRE MORAES (BRE) Comment: Interpretive Data Reference Interval Normal ?>/= 90 mL/min/1.73m2 Mildly decreased* ? 60 - 89 mL/min/1.73m2 Mildly to moderately decreased ?45 - 59 mL/min/1.73m2 Moderately to severely decreased ??30 - 44 mL/min/1.73m2 Severely decreased ?15 - 29 mL/min/1.73m2 Kidney Failure ?< 15 ??mL/min/1.73m2 *Relative to young adult level If -Moroccan multiply value by 1.16. Estimated glomerular filtration [...] 2015. Blood specimen (specimen) 05/19/2018 7:46 PM COMMUNICATIONS ASSISTANT 05/19/2018 7:52 PM COMMUNICATIONS ASSISTANT Narrative EMANUELSTEFANIA MORAES (BRE) - 05/19/2018 8:25 PM COMMUNICATIONS ASSISTANT us Kevin Blackwell MD LAB BLOOD ORDERABLES Final Result ANDRE MORAES (BRE) 1 [facility] Department [place] [address] * (ABNORMAL) Differential, auto (05/19/2018 7:46 PM COMMUNICATIONS ASSISTANT) Neutrophil abs 3.6 1.7 - 6.5 K/cumm ANDRE MORAES ([place]) Imm gran abs 0.0 0.0 - 0.1 [...] 2017. Blood specimen (specimen) 05/19/2018 7:46 PM COMMUNICATIONS ASSISTANT 05/19/2018 7:52 PM COMMUNICATIONS ASSISTANT Narrative [facility] (BRE) - 05/19/2018 8:17 PM COMMUNICATIONS ASSISTANT us Kevin Blackwell MD LAB BLOOD ORDERABLES Final Result ANDRE ANSARI) 1 [facility] Department [place] [address] * Blood culture Blood (05/19/2018 7:46 PM COMMUNICATIONS ASSISTANT) Report Final Report: No growth ANDRE ANSARI) Comment:Testing performed by : [facility] [place], 1 [place]., [address] Blood specimen (specimen) 05/19/2018 7:46 PM COMMUNICATIONS ASSISTANT 05/19/2018 9:26 PM COMMUNICATIONS ASSISTANT Narrative ANDRE ANSARI) - 05/25/2018 7:01 AM COMMUNICATIONS ASSISTANT 1. Blood cultures are incubated for 5 [...] organism identification may be performed using the Fanearigene Gram-Positive Blood Culture Assay. This assay detects microbial DNA in positive blood culture broth via hybridization of target DNA to capture oligonucleotides on a microarray. This assay has been cleared by the [place] Food and Drug Administration and its performance characteristics have been verified by the [facility] [place] [facility]biology Laboratory. 5. For questions about this culture, contact the Microbiology Laboratory at [phone]. Interpretive data was last revised on 2018. us Kevin Blackwell MD LAB MICROBIOLOGY - GENERAL ORDERABLES Final Result Performing Organization Address City/[facility]/ZIP Co de Phone Number ANDRE MORAES ([place]) 1 [facility] Department [place] [address] * Blood culture Blood (05/19/2018 7:46 PM COMMUNICATIONS ASSISTANT) Report Final Report: No growth ANDRE MORAES ([place]) Comment:Testing performed by : [facility] [place], [address] [place]., [address] Blood specimen (specimen) 05/19/2018 7:46 PM COMMUNICATIONS ASSISTANT 05/19/2018 9:26 PM COMMUNICATIONS ASSISTANT Narrative ANDRE ANSARI) - 05/25/2018 7:01 AM COMMUNICATIONS ASSISTANT 1. Blood cultures are incubated for 5 [...] organism identification may be performed using the Fanearigene Gram-Positive Blood Culture Assay. This assay detects microbial DNA in positive blood culture broth via hybridization of target DNA to capture oligonucleotides on a microarray. This assay has been cleared by the [place] Food and Drug Administration and its performance characteristics have been verified by the [facility] [place] [facility]. 5. For questions about this culture, contact the Microbiology Laboratory at [phone]. Interpretive data was last revised on 2018. Kevin Blackwell MD LAB MICROBIOLOGY - GENERAL ORDERABLES Final Result Performing Organization Address City/[facility]/ZIP Co de Phone Number ANDRE MORAES ([place]) 1 [facility] Department [place] [address] * Lactate (05/19/2018 7:46 PM COMMUNICATIONS ASSISTANT) Lactate 0.9 0.7 - 2.0 mmol/L [facility] (BRE) Blood specimen (specimen) 05/19/2018 7:46 PM COMMUNICATIONS ASSISTANT 05/19/2018 7:52 PM COMMUNICATIONS ASSISTANT Narrative ANDRE MORAES ([place]) - 05/19/2018 8:00 PM COMMUNICATIONS ASSISTANT Kevin Blackwell MD LAB BLOOD ORDERABLES Final Result ANDRE MORAES ([place]) 1 [facility] Department [place] [address] * Comprehensive metabolic panel (05/19/2018 7:46 PM COMMUNICATIONS ASSISTANT) Sodium 142 135 - 145 mmol/L [facility] (BRE) Potassium, pl 3.9 3.3 - 4.9 mmol/L [facility] ([place]) Chloride 104 97 - 110 mmol/L [facility] ([place]) CO2 28 22 - 32 mmol/L [facility] (BRE) Anion gap 10 2 - 15 mmol/L [facility] ([place]) BUN 20 8 - 25 mg/dL [facility] ([place]) Creatinine 1.08 0.80 - 1.30 mg/dL [facility] (BRE) Glucose 111 70 - 199 mg/dL [facility] (BRE) Comment: Interpretive Data Fasting glucose >/= [...] 2017. Calcium 9.3 8.5 - 10.3 mg/dL [facility] (BRE) Bilirubin, total 0.8 0.1 - [...] (BRE) Blood specimen (specimen) 05/19/2018 7:46 PM COMMUNICATIONS ASSISTANT 05/19/2018 7:52 PM COMMUNICATIONS ASSISTANT Narrative [facility] ([place]) - 05/19/2018 8:25 PM COMMUNICATIONS ASSISTANT us Kevin Blackwell MD LAB BLOOD ORDERABLES Final Result [facility] ([place] 1 [facility] Department [place] [address] * (ABNORMAL) CBC with auto differential (05/19/2018 7:46 PM COMMUNICATIONS ASSISTANT) WBC 4.8 3.8 - 9.9 K/cumm CERNER [...] (BRE) Blood specimen (specimen) 05/19/2018 7:46 PM COMMUNICATIONS ASSISTANT 05/19/2018 7:52 PM COMMUNICATIONS ASSISTANT Narrative ANDRE MORAES ([place]) - 05/19/2018 8:17 PM COMMUNICATIONS ASSISTANT Kevin Blackwell MD LAB BLOOD ORDERABLES Final Result ANDRE MORAES ([place]) 1 [facility] [employer] [place] [address] * Influenza A/B Antigen Nasopharyngeal (05/19/2018 7:20 PM COMMUNICATIONS ASSISTANT) Influenza A Ag Negative [facility] R [facility] [...] reviewed 2018 Nasopharyngeal 05/19/2018 7: 20 PM COMMUNICATIONS ASSISTANT 05/19/2018 7:23 PM COMMUNICATIONS ASSISTANT Narrative ANDRE MORAES ([place]) - 05/19/2018 7:36 PM COMMUNICATIONS ASSISTANT us Kevin Blackwell MD LAB MICROBIOLOGY - GENERAL ORDERABLES Final Result ANDRE MORAES ([place]) 1 [facility] [employer] [place] [address] documented in this encounter Visit Diagnoses Diagnosis [...] Pelvic Infection New Bag 05/20/2018 2:05 AM COMMUNICATIONS ASSISTANT 1,000 mg ioversol intravenous syringe 100 mL 100 mL, intravenous, Once in imaging, contrast, Starting on Sat05/20/18 at 0056, For 1 dose Given 05/20/2018 12:57 AM COMMUNICATIONS ASSISTANT 100 mL ketorolac (TORADOL) injection 30 mg 30 mg, intravenous, Once, On Sat05/19/18 at 2156, For 1 dose, For Adult IV push, administer over 15 seconds Given 05/19/2018 11:06 PM COMMUNICATIONS ASSISTANT 30 mg Lactated Ringer's (LR) bolus 1,000 mL 1,000 mL, intravenous, Once, On Sat05/19/18 at 2156, For 1 dose New Bag 05/19/2018 11:04 PM COMMUNICATIONS ASSISTANT 1,000 mL metroNIDAZOLE (FLAGYL) tablet 500 mg 500 mg, oral, Once, On Sat05/20/18 at 0141, For 1 dose, Indications: Abdominal/Pelvic InfectionIndications:Abdominal/ Pelvic Infection Given 05/20/2018 2:05 AM COMMUNICATIONS ASSISTANT 500 mg ondansetron (ZOFRAN) injection 4 mg 4 mg, intravenous, Administer over 2 Minutes, Once, On Sat05/19/18 at 2157, For 1 dose Given 05/19/2018 11:05 PM COMMUNICATIONS ASSISTANT 4 mg documented in this encounter Active and Recently Administered Medications Times are shown in COMMUNICATIONS ASSISTANT. Scheduled Medication Order 05/18/2018 05/19/2018 05/20/2018 [id number] [...] R-RT) documented in this encounter Care Teams Bioinformatics Support Specialist Relationship Specialty [place] [address] [facility] [address] [place] [address] Rheumatology 02/21/17 Lashay Downs, GAY Registered Nurse Pain Management 06/17/17 Duke Do, RN Registered Nurse 09/09/17 documented as of this encounter
--- OUTSIDE RECORDS SUMMARY | 2024-06-14 23:33 | XMS_ITS | Encounter Summary ---
Author Organization [facility] Healthcare Address [address] [place] [address] Care Team Providers Care Associate Chemist Name Role Phone Criss Blanco MD Unavailable Lashay Downs RN Unavailable Unavailab le Duke Do RN Unavailable Unavailabl e Encounter Details Date Type Department Care Team (Late st Contact Info) Description 10/15/2018 Orders Only [facility] OP INTERIM [phone] Alissa Fuentes MD [address] [facility] [address] [address] [place] [address] Social History Tobacco Use Types Packs/Day Years Used Date Smoking Tobacco: Former Cigarettes 2 30 Smokeless Tobacco: Never Comments:Smoking History Pac ks/day: 2 Packs Alcohol Use Standard Drinks/Week Comments Yes 2 (1 standard drink = 0.6 oz pur e alcohol) Sex and Gender Information Value Date Recorded Sex Assigned at Not on file Legal Sex Male 12:56 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
--- OUTSIDE RECORDS SUMMARY | 2024-06-14 23:33 | XMS_ITS | Encounter Summary ---
Author Organization [facility] Address [address] [facility] [facility] [address] [place] [address] Care Team Providers Care Supervisor Cooler Service Name Role Phone Criss Blanco MD Unavailable [...] Expiration Date Visits Re quested Visits Authorized [id number] Closed 07/28/2018 02/06/2020 1 1 Encounter Details Date Type Department Care Team (Latest Contact Info) Description 07/28/2018 11:00 AM TAKE UP SUPERVISOR - 07/28/2018 11:59 PM TAKE UP SUPERVISOR Hospital Encounter [facility] [address] [id number] Discharge Disposition: Discharge to home [...] on file Legal Sex Male 12:56 AM TAKE UP SUPERVISOR Gender Identity Not on file Sexual [...] Read Routine (OP Routine) 07/28/2018 11:18 AM TAKE UP SUPERVISOR Lumbar spondylosis documented in this encounter Results * XR Spine Lumbar Complete 4 View (07/28/2018 11:18 AM TAKE UP SUPERVISOR) Anatomical Region Laterality Modality Spine N/A Radiographic Corin ging Narrative 07/28/2018 11:51 AM TAKE UP SUPERVISOR AP, lateral, flexion-extension of the lumbar spine [...] filedocumented in this encounter Care Teams Supervisor Cooler Service Relationship Specialty [place] [address] [facility] [address] [place] [address] Rheumatology 02/21/17 Lashay Downs, RN Registered Nurse Pain Management 06/17/17 Duke Do, RN Registered Nurse 09/09/17 documented as of this encounter
--- OUTSIDE RECORDS SUMMARY | 2024-06-14 23:33 | XMS_ITS | Encounter Summary ---
Author Organization [facility] Healthcare Address [address] [place] [address] Care Team Providers Care Flamer After Lasting Name Role Phone Criss Blanco MD Unavailable Lashay Downs RN Unavailable Unavailab Duke Goodwin RN Unavailable Unavailabl e Reason for Visit * Reason Comments PT Initial Eval * Consultation (Routine) - Closed Specialty Diagnoses / Procedures Referred By Alcira forrest Referred To Contact Physical Therapy Diagnoses Lumbar spondylosis Timmy Bañuelos MD Phone: tel: fax: [address] [address] Referral ID Status Reason Start Date Expiration Date V isits Requested Visits Authorized [id number] Closed Specialty Services Required 07/28/2018 02/06/2020 12 12 Encounter Details Date Type Department Care Team (Late st Contact Info) Description 07/29/2018 10:45 AM FRESCO ARTIST Therapy [facility] Physical Therapy - [address] [facility] [place] [address] Samuel Rubio, PT Lumbar spondylosis (Primary Dx) [...] on file Legal Sex Male 12:56 AM FRESCO ARTIST Gender Identity Not on file Sexual Orientation Not on file documented as of this encounter Progress Notes * JosenishaSamuel myrickAshanti, PT - 07/29/2018 10:45 AM CST PT Initial Evaluation Samuel Sanchez 1945 73 y.o. male Timmy Bañuelos [place] [address] [facility] [address] [place] [address] ICD-9-CM ICD-10-CM 1. Lumbar spondylosis 721.3 M47.816 [...] reports today on the recommendation of his material control specialist for conservative intervention once again as [...] Goals for therapy: Decreased pain, Increased motion, Henderson with ADLs/IADLs Physical Examination AROM Thoracic (in [...] weeks Discussed with: patient Samuel Rubio, PT CO ARTIST documented in this encounter Plan of Treatment Not on file documented as of this encounter Visit Diagnoses Diagnosis Lumbar spondylosis- Primary Lumbosacral spondylosis without myelopathy documented in this encounter Orders Outpatient Referral Count Last Ordered Date st Ordered Date AMB REFERRAL ORDER TO PHYSICAL THERAPY 1 documented in this encounter Care Teams Flamer After Lasting Relationship Specialty [place] [address] [facility] [address] [place] [address] Rheumatology 02/21/17 Lashay Downs, RN Registered Nurse Pain Management 06/17/17 Duke Do, GAY Registered Nurse 09/09/17 documented as of this encounter
--- OUTSIDE RECORDS SUMMARY | 2024-06-14 23:33 | XMS_ITS | Encounter Summary ---
Author Organization [facility] Healthcare Address [address] [place] [address] Care Team Providers Care Crystal Gazer Name Role Phone Criss Blanco MD Unavailable [...] st Contact Info) Description 07/25/2018 8:10 PM ENVIRONMENTAL AIDE - 07/26/2018 1:32 AM [facility] Emergency [facility] Emergency Department [address] [place] [address] Abelardo Johnson, [address] [place] [address] Right low back pain, unspecified chronicity, with [...] file Legal Sex Male 12:56 AM ENVIRONMENTAL AIDE Gender Identity Not on file Sexual Orientation Not on file documented as of this encounter Last Filed Vital Signs Vital Sign Reading Time Taken Comments Blood Pressure 120/87 07/25/2018 7:44 PM ENVIRONMENTAL AIDE Pulse 68 07/25/2018 7:44 PM ENVIRONMENTAL AIDE Temperature 36.6 ??C (97.9 ??F) 07/25/2018 7:44 PM CS T Respiratory Rate 18 07/25/2018 7:44 PM ENVIRONMENTAL AIDE Oxygen Saturation 98% 07/25/2018 7:44 PM ENVIRONMENTAL AIDE Inhaled Oxygen Concentration - - Weight 99.8 kg (220 lb) 07/25/2018 7:44 PM ENVIRONMENTAL AIDE Height 185.4 cm (6' 1 ) 07/25/2018 7:44 PM ENVIRONMENTAL AIDE Body Mass Index 29.03 07/25/2018 7:44 PM ENVIRONMENTAL AIDE documented in this encounter Discharge Instructions * Attachments The following attachments cannot be sent through Care Everywhere. * Back Pain (Acute or Chronic) (Palestinian) documented in this encounter Medications at Time [...] Take as directed. 21 tablet 07/26/2018 01/30/2019 [id number] foreign-minerals 18-0.4 mg tabletIndications :Mineral Deficiency Prevention,Vitami [...] OTHER MEDICAL hemorroids; Comments: Had done at [facility] in [place] ??? HX OTHER MEDICAL bladder infection ??? HX OTHER MEDICAL kidney stone ??? Malignant neoplasm of prostate ([facility]) 1998 prostate Past Surgical History: Procedure Laterality [...] tablet methylPREDNISolone (MEDROL DOSEPACK) 4 mg Dosepack sdujahuugpyf-Pb-tzyw-minerals 18-0.4 mg tablet omeprazole (PriLOSEC) 20 mg [...] tendency for uric acid stone formation. Source: [employer].Last revised 06-13-2017 No orders to display Procedures [...] Lawson, acting as a scribe for Abelardo Johnson DO. I electronically signed this note at 12:36 AM on 07/26/2018. I, Abelardo Johnson DO, have personally performed the services described in the documentation , reviewed the documentation, as recorded by the scribe in my presence, and it accurately and completely records my words and actions. Abelardo Johnson DO 07/26/18 0100 RONMENTAL AIDE documented in this encounter Plan of Treatment Not on file documented as of this encounter Procedures Procedure Name Priority Date/Time Associated Diagnosis Comments URINALYSIS AND REFLEX TO MICROSCOPIC AND CULTURE STAT 07/25/2018 10:18 PM ENVIRONMENTAL AIDE documented in this encounter Results * Urinalysis reflex to microscopic and culture Urine (07/25/2018 10:18 PM ENVIRONMENTAL AIDE) Color, ur Yellow Yellow [facility] Clarity, [...] [facility] Urine 07/25/2018 10:1 8 PM ENVIRONMENTAL AIDE 07/25/2018 10:56 PM ENVIRONMENTAL AIDE Narrative [facility] - 07/25/2018 11:25 PM ENVIRONMENTAL AIDE ?? Urine pH is affected by diet, medications, systemic acid-base disturbances, and renal tubular function. ??pH may affect urinary stone formation. ??For example, urine pH below 6.0 may help reduce the tendency for calcium phosphate stones and pH greater than 6.0 may reduce the tendency for uric acid stone formation. Source: [employer]. Last revised 06-13-2017 us Aeblardo Johnson DO LAB MICROBIOLOGY - GENERAL ORD ERABLES Final Result ANDRE [address] [address] Department [place] [address] documented in this encounter Visit [...] For 1 dose Given 07/26/2018 12:24 AM ENVIRONMENTAL AIDE 5 mg HYDROmorphone (DILAUDID) injection 1 mg 1 mg, intravenous, Administer over 2 Minutes, Once, On Sat07/25/18 at 2353, For 1 dose, Indications: PainIndications:Pain Given 07/26/2018 12:25 AM ENVIRONMENTAL AIDE 1 mg ketorolac (TORADOL) injection 30 mg 30 mg, intravenous, Once, On Sat07/25/18 at 2353, For 1 dose, For Adult IV push, administer over 15 seconds, Indications: PainIndications:Pain Given 07/26/2018 12:25 AM ENVIRONMENTAL AIDE 30 mg methylPREDNISolone sodium succinate (SOLU-medrol) preservative free injection 125 mg 125 mg, intravenous, Administer over 3 Minutes, Once, On Sat07/25/18 at 2353, For 1 dose, Administer 125 mg or less over 3 minutes Given 07/26/2018 12:25 AM ENVIRONMENTAL AIDE 125 mg sodium chloride 0.9% bolus 1,000 mL 1,000 mL, intravenous, at 1,000 mL/hr, Administer over 1 Hours, Once, On Sat07/25/18 at 2353, For 1 dose New Bag 07/26/2018 12:25 AM ENVIRONMENTAL AIDE 1,000 mL 1000 mL/hr documented in this encounter Active and Recently Administered Medications Times are shown in ENVIRONMENTAL AIDE. Scheduled Medication Order 07/24/2018 07/25/2018 07/26/2018 [id number] [...] RN) documented in this encounter Care Teams Crystal Gazer Relationship Specialty [place] [address] [facility] [address] [place] [address] Rheumatology 02/21/17 Lashay Downs, RN Registered Nurse Pain Management 06/17/17 Duke Do, GAY Registered Nurse 09/09/17 documented as of this encounter
--- OUTSIDE RECORDS SUMMARY | 2024-06-14 23:33 | XMS_ITS | Encounter Summary ---
Author Organization [facility] Healthcare Address [address] [place] [address] Care Team Providers Care Red Leader Name Role Phone Criss Blanco MD Unavailable Lashay Downs RN Unavailable Unavailab Duke Goodwin RN Unavailable Unavailabl e Reason for Visit * Reason Comments Flank Pain Encounter Details Date Type Department Care Team (Late st Contact Info) Description 04/21/2018 4:38 PM DIETARY AIDE TEACHER - 04/21/2018 7:22 PM DIETARY AIDE TEACHER Emergency [facility] Emergency Department [address] [place] [address] Marcela Gamboa MD [address] [place] [address] Ureteral colic (Primary Dx) Discharge Disposition: Discharge [...] on file Legal Sex Male 12:56 AM DIETARY AIDE TEACHER Gender Identity Not on file Sexual Orientation Not on file documented as of this encounter Last Filed Vital Signs Vital Sign Reading Time Taken Comments Blood Pressure 132/92 04/21/2018 7:15 PM DIETARY AIDE TEACHER Pulse 87 04/21/2018 5:01 PM DIETARY AIDE TEACHER Temperature 36.5 ??C (97.7 ??F) 04/21/2018 5:01 PM CS T Respiratory Rate 18 04/21/2018 5:01 PM DIETARY AIDE TEACHER Oxygen Saturation 96% 04/21/2018 7:15 PM DIETARY AIDE TEACHER Inhaled Oxygen Concentration - - Weight 102.1 kg (225 lb) 04/21/2018 5:01 PM DIETARY AIDE TEACHER Height - - Body Mass Index 29.69 04/18/2018 8:08 PM DIETARY AIDE TEACHER documented in this encounter Discharge Instructions * Attachments The following attachments cannot be sent through Care Everywhere. * Kidney Stone w/ Colic (Luxembourgish) documented in this encounter Medications at [...] needed for pain. 20 tablet 04/21/2018 02/06/2019 [id number] foreign-minerals 18-0.4 mg tabletIndications :Mineral Deficiency Prevention,Vitami [...] he has a hx of kidney stones. ARY AIDE TEACHER * Marcela Gamboa MD - 04/21/2018 4:45 [...] on blood thinner Patient was seen at [facility] ED 3 days ago for viral pharyngitis. [...] OTHER MEDICAL hemorroids; Comments: Had done at [facility] in [place] ??? HX OTHER MEDICAL bladder infection ??? HX OTHER MEDICAL kidney stone ??? Malignant neoplasm of prostate ([facility]) 1998 prostate Past Surgical History: Procedure Laterality [...] tendency for uric acid stone formation. Source: [facility] [facility].Last revised 06-13-2017 URINALYSIS, MICROSCOPIC ONLY - Abnormal [...] 18 100 % 102.1 kg (225 lb) [facility] ED Course as of Apr 21 2017 [...] Impression: Ureteral colic Marcela Gamboa MD 04/21/182016 ARY AIDE TEACHER documented in this encounter Plan of Treatment Not on file documented as of this encounter Procedures Procedure Name Priority Date/Time Associated Diagnosis Comments URINALYSIS AND REFLEX TO MICROSCOPIC AND CULTURE STAT 04/21/2018 6:29 PM DIETARY AIDE TEACHER URINALYSIS, MICROSCOPIC ONLY STAT 04/21/2018 6:29 PM DIETARY AIDE TEACHER URINE CULTURE STAT 04/21/2018 6:[address] KUB STONE WO CONTRAST ED Urgent/IP Urgent 04/21/2018 5:38 PM DIETARY AIDE TEACHER BLOOD CULTURE STAT 04/21/2018 5:31 PM DIETARY AIDE TEACHER SEPSIS LACTATE WITH REFLEX STAT 04/21/2018 5:30 PM DIETARY AIDE TEACHER BLOOD CULTURE STAT 04/21/2018 5:30 PM DIETARY AIDE TEACHER EGFR STAT 04/21/2018 5:11 PM DIETARY AIDE TEACHER DIFFERENTIAL AUTO STAT 04/21/2018 5:1 1 PM DIETARY AIDE TEACHER CBC WITH AUTO DIFFERENTIAL STAT 04/21/2018 5:11 PM DIETARY AIDE TEACHER APTT STAT 04/21/2018 5:11 PM DIETARY AIDE TEACHER PROTIME-INR STAT 04/21/2018 5:11 PM DIETARY AIDE TEACHER COMPREHENSIVE METABOLIC PANEL STAT 04/21/2018 5:11 PM DIETARY AIDE TEACHER documented in this encounter Results * Urine culture (04/21/2018 6:29 PM DIETARY AIDE TEACHER) Report Final Report: No growth ANDRE ANSARI) Comment:Testing performed by : [facility], [address] [facility] [place]., [address] Urine 04/21/2018 6:29 PM DIETARY AIDE TEACHER 04/21/2018 9:36 PM DIETARY AIDE TEACHER Narrative ANDRE MORAES (BRE) - 04/22/2018 5:28 PM DIETARY AIDE TEACHER Urine culture reflexed based upon urinalysis results. Testing performed by [facility] Microbiology Laboratory ([phone]) us Marcela Gamboa MD LAB MICROBIOLOGY - GENERAL ORDERABLES Final Result ANDRE ANSARI) 1 [facility] [place] [address] * (ABNORMAL) Urinalysis, microscopic only (04/21/2018 6:29 PM DIETARY AIDE TEACHER) WBC, ur 21-50(A) 0 - 5 /HPF [facility] (BRE) RBC, ur >100 0 - 5 /HPF [facility] (BRE) Epithelial cells, squamous, ur 1-5 0 - 5 /HPF [facility] (BRE) Bacteria, ur Negative [facility] (BRE) Hyaline casts, ur 1-5 0 - 10 /LPF [facility] (BRE) Urine 04/21/2018 6:29 PM DIETARY AIDE TEACHER 04/21/2018 6:34 PM DIETARY AIDE TEACHER Narrative [facility] (BRE) - 04/21/2018 6:53 PM DIETARY AIDE TEACHER us Marcela Gamboa MD LAB URINE ORDERABLE S Final Result [facility] (BRE) 1 [facility] [place] [address] * (ABNORMAL) Urinalysis reflex to microscopic and culture Urine (04/21/2018 6:29 PM DIETARY AIDE TEACHER) Color, ur Sandra Yellow [facility] (BRE) [...] [facility] (BRE) Urine 04/21/2018 6:29 PM DIETARY AIDE TEACHER 04/21/2018 6:34 PM DIETARY AIDE TEACHER Narrative [facility] (BRE) - 04/21/2018 6:53 PM DIETARY AIDE TEACHER ?? Urine pH is affected by diet, medications, systemic acid-base disturbances, and renal tubular function. ??pH may affect urinary stone formation. ??For example, urine pH below 6.0 may help reduce the tendency for calcium phosphate stones and pH greater than 6.0 may reduce the tendency for uric acid stone formation. Source: [employer]. Last revised 06-13-2017 us Marcela Gamboa MD LAB MICROBIOLOGY - GENERAL ORDERABLES Final Result ANDRE MORAES [place]) 1 [facility] [place] [address] * CT KUB Stone WO Contrast (04/21/2018 5:38 PM DIETARY AIDE TEACHER) Anatomical Region Laterality Modality Abdomen N/A Computed Tomogra phy 04/21/2018 6:28 PM DIETARY AIDE TEACHER Impressions 04/21/2018 6:30 PM DIETARY AIDE TEACHER 1. ??3 MM DISTAL RIGHT URETERAL CALCULUS WITH MODERATE PROXIMAL URINARY TRACT DILATATION. 2. ??NONOBSTRUCTIVE BILATERAL INTRARENAL CALCULI. 3. ??PROSTATIC HYPERTROPHY. Electronically signed by: Brad Patricia M.D. Narrative 04/21/2018 6:[address] KUB STONE WO CONTRAST HISTORY: Flank [...] Blood culture Blood Peripheral (04/21/2018 5:31 PM DIETARY AIDE TEACHER) Report Final Report: No growth ANDRE MORAES (BRE) Comment:Testing performed by : [place]., [address] Blood specimen (specimen) (Peripheral) 04/21/2018 5:31 PM DIETARY AIDE TEACHER 04/21/2018 7:18 PM DIETARY AIDE TEACHER Narrative ANDRE MORAES (BRE) - 04/26/2018 7:00 AM DIETARY AIDE TEACHER From a different site than #1. Draw Blood cultures before administration of Antibiotics 1. For questions, call the Microbiology Laboratory at [phone]. Organism identification and/or antimicrobial susceptibility testing, if reported, [place] [address] 2. Blood cultures are incubated for 5 [...] organism identification may be performed using the DFine Nanosphere Gram Positive Blood Culture Assay. The Nanosphere assay detects microbial DNA in positive blood culture broth via hybridization of target DNA to capture oligonucleotides on a microarray. This assay has been cleared by the [place] Food and Drug Administration and its performance characteristics have been verified by the [facility] Microbiology Laboratory. Interpretive data was last revised on October 10, 2017. Marcela Gamboa MD LAB MICROBIOLOGY - GENERAL ORDERABLES Final Result ANDRE MORAES (BRE) 1 [facility] [employer] [place] [address] * Sepsis Lactate w/ Reflex (04/21/2018 5:30 PM DIETARY AIDE TEACHER) Sepsis Lactate 1.3 0.7 - 2.0 mmol/L ANDRE MORAES (BRE) Blood specimen (specimen) 04/21/2018 5:30 PM DIETARY AIDE TEACHER 04/21/2018 5:34 PM DIETARY AIDE TEACHER Narrative ANDRE MORAES (BRE) - 04/21/2018 5:37 PM DIETARY AIDE TEACHER Marcela Gamboa MD LAB BLOOD ORDERABLE S Final Result ANDRE ALEISHA (BRE) 1 [facility] [employer] [place] [address] * Blood culture Blood Peripheral (04/21/2018 5:30 PM DIETARY AIDE TEACHER) Report Final Report: No growth ANDRE MORAES (BRE) Comment:Testing performed by : [facility], [facility], [place]., [address] Blood specimen (specimen) (Peripheral) 04/21/2018 5:30 PM DIETARY AIDE TEACHER 04/21/2018 7:18 PM DIETARY AIDE TEACHER Narrative ANDRE MORAES (BRE) - 04/26/2018 7:00 AM DIETARY AIDE TEACHER Draw Blood cultures before administration of Antibiotics 1. For questions, call the Microbiology Laboratory at [phone]. Organism identification and/or antimicrobial susceptibility testing, if reported, [place] [address] 2. Blood cultures are incubated for 5 [...] organism identification may be performed using the DFine Nanosphere Gram Positive Blood Culture Assay. The Nanosphere assay detects microbial DNA in positive blood culture broth via hybridization of target DNA to capture oligonucleotides on a microarray. This assay has been cleared by the [place] Food and Drug Administration and its performance characteristics have been verified by the [facility] Microbiology Laboratory. Interpretive data was last revised on October 10, 2017. us Marcela Gamboa MD LAB MICROBIOLOGY - GENERAL ORDERABLES Final Result ANDRE MORAES (BRE) 1 [facility] [place] [address] * eGFR (04/21/2018 5:11 PM DIETARY AIDE TEACHER) eGFR >60 mL/min/1.7 3 m2 ANDRE MORAES (BRE) Comment: Interpretive Data Reference Interval Normal ?>/= 90 mL/min/1.73m2 Mildly decreased* ? 60 - 89 mL/min/1.73m2 Mildly to moderately decreased ?45 - 59 mL/min/1.73m2 Moderately to severely decreased ??30 - 44 mL/min/1.73m2 Severely decreased ?15 - 29 mL/min/1.73m2 Kidney Failure ?< 15 ??mL/min/1.73m2 *Relative to young adult level If -Icelandic multiply value by 1.16. Estimated glomerular filtration [...] 2015. Blood specimen (specimen) 04/21/2018 5:11 PM DIETARY AIDE TEACHER 04/21/2018 5:17 PM DIETARY AIDE TEACHER Narrative ANDRE MORAES (BRE) - 04/21/2018 5:41 PM DIETARY AIDE TEACHER us Marcela Gamboa MD LAB BLOOD ORDERABLE S Final Result ANDRE ArnoldBRE) 1 [facility] [place] [address] * Differential, auto (04/21/2018 5:11 PM DIETARY AIDE TEACHER) Neutrophil abs 5.6 1.7 - 6.5 K/cumm [...] 2017. Blood specimen (specimen) 04/21/2018 5:11 PM DIETARY AIDE TEACHER 04/21/2018 5:17 PM DIETARY AIDE TEACHER Narrative [facility] (BRE) - 04/21/2018 5:19 PM DIETARY AIDE TEACHER us Marcela Gamboa MD LAB BLOOD ORDERABLE S Final Result ANDRE MORAES (BRE) 1 [facility] [place] [address] * Comprehensive metabolic panel (04/21/2018 5:11 PM DIETARY AIDE TEACHER) Sodium 140 135 - 145 mmol/L CERNER [...] (BRE) Blood specimen (specimen) 04/21/2018 5:11 PM DIETARY AIDE TEACHER 04/21/2018 5:17 PM DIETARY AIDE TEACHER Narrative [facility] (BRE) - 04/21/2018 5:41 PM DIETARY AIDE TEACHER us Marcela Gamboa MD LAB BLOOD ORDERABLE S Final Result [facility] (BRE) 1 [facility] [place] [address] * CBC with auto differential (04/21/2018 5:11 PM DIETARY AIDE TEACHER) WBC 7.5 3.8 - 9.9 K/cumm CERNER [...] (BRE) Blood specimen (specimen) 04/21/2018 5:11 PM DIETARY AIDE TEACHER 04/21/2018 5:17 PM DIETARY AIDE TEACHER Narrative [facility] (BRE) - 04/21/2018 5:19 PM DIETARY AIDE TEACHER us Marcela Gamboa MD LAB BLOOD ORDERABLE S Final Result ANDRE MORAES (BRE) 1 [facility] [place] [address] * aPTT (04/21/2018 5:11 PM DIETARY AIDE TEACHER) aPTT 32.4 25.0 - 37.0 sec ANDRE MORAES (BRE) Blood specimen (specimen) 04/21/2018 5:11 PM DIETARY AIDE TEACHER 04/21/2018 5:17 PM DIETARY AIDE TEACHER Narrative ANDRE MORAES (BRE) - 04/21/2018 5:36 PM DIETARY AIDE TEACHER us Marcela Gamboa MD LAB BLOOD ORDERABLE S Final Result Performing Organization Address [facility] Co de Phone Number ANDRE MORAES (BRE) 1 [facility] [place] [address] * Protime-INR (04/21/2018 5:11 PM DIETARY AIDE TEACHER) PT 11.4 9.5 - 13.0 sec EMANUELSTEFANIA [...] 2015. Blood specimen (specimen) 04/21/2018 5:11 PM DIETARY AIDE TEACHER 04/21/2018 5:17 PM DIETARY AIDE TEACHER Narrative ANDRE MORAES (BRE) - 04/21/2018 5:33 PM DIETARY AIDE TEACHER us Marcela Gamboa MD LAB BLOOD ORDERABLE S Final Result ANDRE MORAES (BRE) 1 [facility] [place] [address] documented in this encounter Visit Diagnoses Diagnosis Ureteral colic- Primary Renal colic documented in this encounter Administered Medications Inactive Administered Medications - up to 3 most recent administrations Medication Order MAR Action Action Date Dose Rate Site HYDROmorphone (DILAUDID) injection 1 mg 1 mg, intravenous, Administer over 2 Minutes, Once, On Sat04/21/18 at 1652, For 1 dose, Indications: PainIndications:Pain Given 04/21/2018 5:08 PM DIETARY AIDE TEACHER 1 mg ondansetron (ZOFRAN) injection 4 mg 4 mg, intravenous, Administer over 2 Minutes, Once, On Sat04/21/18 at 1652, For 1 dose, Indications: Nausea, VomitingIndications:Nausea, Vomiting Given 04/21/2018 5:08 PM DIETARY AIDE TEACHER 4 mg sodium chloride 0.9% bolus 1,000 mL 1,000 mL, intravenous, at 1,000 mL/hr, Administer over 1 Hours, Once, On Sat04/21/18 at 1652, For 1 dose New Bag 04/21/2018 5:08 PM DIETARY AIDE TEACHER 1,000 mL 1000 mL/hr documented in this encounter Active and Recently Administered Medications Times are shown in DIETARY AIDE TEACHER. Scheduled Medication Order 04/19/2018 04/20/2018 04/21/2018 HYDROmorphone (DILAUDID) injection 1 mg (COMPLETED) 1 mg, intravenous, Administer over 2 Minutes, Once, On Sat04/21/18 at 1652, For 1 dose, Indications: Pain 1708 (Given - Provid er: Karina Viiera RN) ondansetron (ZOFRAN) injection 4 mg (COMPLETED) [...] RN) documented in this encounter Care Teams Red Leader Relationship Specialty [place] [address] [facility] [address] [place] [address] Rheumatology 02/21/17 Lashay Downs, RN Registered Nurse Pain Management 06/17/17 Duke Do, RN Registered Nurse 09/09/17 documented as of this encounter
--- OUTSIDE RECORDS SUMMARY | 2024-06-14 23:33 | XMS_ITS | Encounter Summary ---
Author Organization [facility] Healthcare Address [address] [place] [address] Care Team Providers Care Thread Inspector Name Role Phone Criss Blanco MD Unavailable Lashay Downs RN Unavailable Unavailab Duke Goodwin RN Unavailable Unavailabl e Reason for Visit * Reason Comments PT Treatment Encounter Details Date Type Department Care Team (Late st Contact Info) Description 08/18/2018 9:45 AM CDT Therapy [facility] Physical Therapy [address] [facility] [place] [address] Samuel Rubio, PT Lumbar spondylosis (Primary Dx) [...] on file Legal Sex Male 12:56 AM BOTTOM MAN Gender Identity Not on file Sexual Orientation [...] myelopathy documented in this encounter Care Teams Thread Inspector Relationship Specialty [place] [address] [facility] [address] [place] [address] Rheumatology 02/21/17 Lashay Downs, GAY Registered Nurse Pain Management 06/17/17 Duke Do, RN Registered Nurse 09/09/17 documented as of this encounter
--- OUTSIDE RECORDS SUMMARY | 2024-06-14 23:33 | XMS_ITS | Encounter Summary ---
Author Organization [facility] Healthcare Address [address] [place] [address] Care Team Providers Care Medical Instrument Cable Fabricator Name Role Phone Criss Blanco MD Unavailable Lashay Downs RN Unavailable Unavailab Duke Goodwin RN Unavailable Unavailabl e Reason for Visit * Reason Comments PT Treatment Encounter Details Date Type Department Care Team (Late st Contact Info) Description 08/06/2018 9:15 AM PROPELLER INSPECTOR Therapy [facility] Physical Therapy [address] [facility] [place] [address] Samuel Rubio, PT Lumbar spondylosis (Primary Dx) [...] on file Legal Sex Male 12:56 AM PROPELLER INSPECTOR Gender Identity Not on file Sexual [...] Time: :15 End Time:1000 Samuel Rubio PT ELLER INSPECTOR documented in this encounter Plan of Treatment Not on file documented as of this encounter Visit Diagnoses Diagnosis Lumbar spondylosis- Primary Lumbosacral spondylosis without myelopathy documented in this encounter Care Teams Medical Instrument Cable Fabricator Relationship Specialty [place] [address] [facility] [address] [place] [address] Rheumatology 02/21/17 Lashay Downs, RN Registered Nurse Pain Management 06/17/17 Duke Do, GAY Registered Nurse 09/09/17 documented as of this encounter
--- OUTSIDE RECORDS SUMMARY | 2024-06-14 23:33 | XMS_ITS | Encounter Summary ---
Author Organization [facility] Address [address] [facility] [place] [address] Care Team Providers Care Manufacturing Baker Name Role Phone Criss Blanco MD Unavailable Lashay Downs RN Unavailable Unavailab Duke Goodwin RN Unavailable Unavailabl e Encounter Details Date Type Department Care Team (Late st Contact Info) Description 07/30/2018 Orders Only [facility] Health Information Management [address] [place] [address] Scanning, Provider Social History Tobacco Use Types Packs/Day Years Used Date Smoking Tobacco: Former Cigarettes 2 30 Smokeless Tobacco: Never Comments:Smoking History Pac ks/day: 2 Packs Alcohol Use Standard Drinks/Week Comments Yes 2 (1 standard drink = 0.6 oz pur e alcohol) Sex and Gender Information Value Date Recorded Sex Assigned at Not on file Legal Sex Male 12:56 AM EXCAVATOR BACKHOE OPERATOR Gender Identity Not on file Sexual Orientation Not on file documented as of this encounter Plan of Treatment Not on file documented as of this encounter Procedures Procedure Name Priority Date/Time Associated Diagnosis Comments SCAN - RADIOLOGY/IMAGING 07/30/2018 9:33 AM EXCAVATOR BACKHOE OPERATOR documented in this encounter Results * SCAN - RADIOLOGY/IMAGING (07/30/2018 9:33 AM EXCAVATOR BACKHOE OPERATOR) Anatomical Region Laterality Modality Other us Provider Scanning Final Result documented in this encounter Visit Diagnoses Not on filedocumented in this encounter Care Teams Manufacturing Baker Relationship Specialty [place] [address] [facility] [address] [place] [address] Rheumatology 02/21/17 Lashay Downs, RN Registered Nurse Pain Management 06/17/17 Duke Do, RN Registered Nurse 09/09/17 documented as of this encounter
--- OUTSIDE RECORDS SUMMARY | 2024-06-14 23:33 | XMS_ITS | Encounter Summary ---
Author Organization [facility] Healthcare Address [address] [place] [address] Care Team Providers Care Privacy Specialist Name Role Phone Criss Blanco MD Unavailable Lashay Downs RN Unavailable Unavailab Duke Goodwin RN Unavailable Unavailabl e Encounter Details Date Type Department Care Team (Late st Contact Info) Description 12/19/2018 8:03 AM CDT Hospital Encounter [facility] INTERIM Anjel Caballero MD [address] [facility] [address] [address] Social History Tobacco Use Types Packs/Day Years Used Date Smoking Tobacco: Former Cigarettes 2 30 Smokeless Tobacco: Never Comments:Smoking History Pac ks/day: 2 Packs Alcohol Use Standard Drinks/Week Comments Yes 2 (1 standard drink = 0.6 oz pur e alcohol) Sex and Gender Information Value Date Recorded Sex Assigned at Not on file Legal Sex Male 12:56 AM EEG TECH Gender Identity Not on file Sexual [...] ?? Age: 73 ?Sex: Male ? MR#: [id number] ?? Loc: ? RADIOLOGY REPORT ?? Order #[id number] ?? Radiology ? Abdomen 1 View ? [...] 2:59 PM - Electronically signed by Chidi Williamsno M.D. ?? Chidi Williamson M.D. ? RT ?? D: ??12/19/2018 2:59 PM ?? T: ? Report ID: [id number] ?? Reading Location: ??[id number] ? REPORT ELECTRONICALLY SIGNED IN OTHER VENDOR SYSTEM ?? Resulting Agency Comment O Procedure Note Chidi Williamson MD - 12/19/2018 Patient Name: SAMUEL HUFFMAN Dr: Anjel Caballero MD D.O.B: 1945 Exam Date: 12/19/18806 Age: 73 Sex: Male MR#: [id number] Loc: RADIOLOGY REPORT Order #[id number] Radiology Abdomen 1 View Signed EXAM DESCRIPTION: [...] Chidi Williamson M.D. RT T: Report ID: [id number] Reading Location: [place] [address] REPORT ELECTRONICALLY SIGNED IN OTHER VENDOR SYSTEM us Anjel Caballero MD IMG XR PROCEDURES Mariaa l Result documented in this encounter Visit Diagnoses Not on filedocumented in this encounter Care Teams Privacy Specialist Relationship Specialty [place] [address] [facility] [address] [place] [address] Rheumatology 02/21/17 Lashay Downs, RN Registered Nurse Pain Management 06/17/17 Duke Do, GAY Registered Nurse 09/09/17 documented as of this encounter
--- OUTSIDE RECORDS SUMMARY | 2024-06-14 23:33 | XMS_ITS | Encounter Summary ---
Author Organization [facility] Healthcare Address [address] [place] [address] Care Team Providers Care Ice Cream Vault Worker Name Role Phone Criss Blanco MD Unavailable Lashay Downs RN Unavailable Unavailab Duke Goodwin RN Unavailable Unavailabl e Reason for Visit * Reason Onset Date Comments Follow-up 10/07/2017 post injection Encounter Details Date Type Department Care Team (Late st Contact Info) Description 10/07/2017 Telephone [facility] [address] [facility], [facility] [address] [place] [address] Clive Mackey MD [address] [place] [address] [address] [place] [address] Follow-up (post injection) Social History Tobacco Use Types Packs/Day Years Used Date Smoking Tobacco: Former Cigarettes 2 30 Smokeless Tobacco: Never Comments:Smoking History Pac ks/day: 2 Packs Alcohol Use Standard Drinks/Week Comments Yes 2 (1 standard drink = 0.6 oz pur e alcohol) Sex and Gender Information Value Date Recorded Sex Assigned at Not on file Legal Sex Male 12:56 AM LUMBER STACKER OPERATOR Gender Identity Not on file Sexual Orientation Not on file documented as of this encounter Miscellaneous Notes * Telephone Encounter - Duke Do RN - 10/07/2017 11:17 AM CDT Spoke with patient, no questions, no concerns. documented in this encounter Plan of Treatment Not on file documented as of this encounter Visit Diagnoses Not on filedocumented in this encounter Care Teams Ice Cream Vault Worker Relationship Specialty [place] [address] [facility] [address] [place] [address] Rheumatology 02/21/17 Lashay Downs, RN Registered Nurse Pain Management 06/17/17 Duke Do, RN Registered Nurse 09/09/17 documented as of this encounter
--- OUTSIDE RECORDS SUMMARY | 2024-06-14 23:33 | XMS_ITS | Encounter Summary ---
Author Organization [facility] Address [address] [place] [address] Care Team Providers Care Surface Supply Breathing Apparatus Name Role Phone Criss Blanco MD Unavailable Lashay Downs RN Unavailable Unavailab Duke Goodwin RN Unavailable Unavailabl e Reason for Visit * Reason Comments GERD takes OTC omeprazole and Zantac Encounter Details Date Type Department Care Team (Latest Contact Info) Description 07/01/2018 1:30 PM SANDWICH WRAPPER Office Visit [facility] Gastroenterology at [address] [place] [phone] Kevin Carpio MD [address] [place] [address] [address] [place] [address] Dyspepsia (Primary Dx) Social History Tobacco Use Types Packs/Day Years Used Date Smoking Tobacco: Former Cigarettes 2 30 Smokeless Tobacco: Never Comments:Smoking History Pac ks/day: 2 Packs Alcohol Use Standard Drinks/Week Comments Yes 2 (1 standard drink = 0.6 oz pur e alcohol) Sex and Gender Information Value Date Recorded Sex Assigned at Not on file Legal Sex Male 12:56 AM SANDWICH WRAPPER Gender Identity Not on file Sexual Orientation Not on file documented as of this encounter Last Filed Vital Signs Vital Sign Reading Time Taken Comments Blood Pressure 118/74 07/01/2018 1:32 PM SANDWICH WRAPPER Pulse 80 07/01/2018 1:32 PM SANDWICH WRAPPER Temperature 36.8 ??C (98.3 ??F) 07/01/2018 1:32 PM CS T Respiratory Rate - - Oxygen Saturation 97% 07/01/2018 1:32 PM SANDWICH WRAPPER Inhaled Oxygen Concentration - - Weight 101.5 kg (223 lb 12.8 oz) 07/01/2018 1:32 PM SANDWICH WRAPPER Height 185.4 cm (6' 1 ) 07/01/2018 1:32 PM SANDWICH WRAPPER Body Mass Index 29.53 07/01/2018 1:32 PM SANDWICH WRAPPER documented in this encounter Patient Instructions * Patient Instructions* Kevin Carpio MD - 07/01/2018 1:30 PM SANDWICH WRAPPER nexium and fruit WICH WRAPPER documented in this encounter Progress Notes * [...] 20 hs, Increase fibe with fruit tid. WICH WRAPPER documented in this encounter Miscellaneous Notes * Assessment & Plan Note - Kevin Carpio MD - 07/01/2018 2:05 PM SANDWICH WRAPPER Associated Problem(s): Dyspepsia Lifelong 'upset stomachj this [...] 20 hs, Increase fibe with fruit tid. WICH WRAPPER documented in this encounter Plan of Treatment [...] 05/29/2019 added in this encounter Care Teams Surface Supply Breathing Apparatus Relationship Specialty [place] [address] [facility] [address] [place] [address] Rheumatology 02/21/17 Lashay Downs, RN Registered Nurse Pain Management 06/17/17 Duke Do, RN Registered Nurse 09/09/17 documented as of this encounter
--- OUTSIDE RECORDS SUMMARY | 2024-06-14 23:34 | XMS_ITS | Encounter Summary ---
Author Organization [facility] Address [address] [place] [address] Care Team Providers Care Airport Representative Name Role Phone Criss Blanco MD Unavailable Lashay Downs RN Unavailable Unavailab Duek Goodwin RN Unavailable Unavailabl e Reason for Visit * Reason Onset Date Comments Follow-up 09/18/2017 injection Encounter Details Date Type Department Care Team (Late st Contact Info) Description 09/18/2017 Telephone [facility] [address] [facility] [address] [place] [address] Clive Mackey MD [address] [place] [address] [address] [place] [address] Follow-up (injection) Social History Tobacco Use Types Packs/Day Years Used Date Smoking Tobacco: Former Cigarettes 2 30 Smokeless Tobacco: Never Comments:Smoking History Pac ks/day: 2 Packs Alcohol Use Standard Drinks/Week Comments Yes 2 (1 standard drink = 0.6 oz pur e alcohol) Sex and Gender Information Value Date Recorded Sex Assigned at Not on file Legal Sex Male 12:56 AM CLINICAL DATA ASSOCIATE Gender Identity Not on file Sexual [...] on filedocumented in this encounter Care Teams Airport Representative Relationship Specialty [place] [address] [facility] [address] [place] [address] Rheumatology 02/21/17 Lashay Downs, RN Registered Nurse Pain Management 06/17/17 Duke Do, RN Registered Nurse 09/09/17 documented as of this encounter
--- OUTSIDE RECORDS SUMMARY | 2024-06-14 23:34 | XMS_ITS | Encounter Summary ---
Author Organization [facility] Address [address] [place] [address] Care Team Providers Care Public [place] Attendant Name Role Phone Criss Blanco MD Unavailable Lashay Downs RN Unavailable Unavailab le Encounter Details Date Type Department Care Team (Latest Contact Info) Description 07/16/2017 8:47 AM APPRAISER BOATS AND MARINE - 07/16/2017 9:23 AM [employer]ATS [employer] Hospital Encounter [facility] Management [facility] [address] [place] [address] [place] [address] Clive Mackey MD [address] [facility] [address] [facility] [address] [place] [address] Discharge Disposition: Discharge to home or self [...] on file Legal Sex Male 12:56 AM APPRAISER BOATS AND MARINE Gender Identity Not on file Sexual Orientation Not on file documented as of this encounter Last Filed Vital Signs Vital Sign Reading Time Taken Comments Blood Pressure 119/71 07/16/2017 9:20 AM AP[employer]ER BOATS AND MARINE Pulse 84 07/16/2017 9:20 AM AP[employer]ER [employer]ATS AND MARINE Temperature 36.7 ??C (98 ??F) 07/16/2017 9:03 AM [employer]ATS [employer]INE Respiratory Rate 17 07/16/2017 9:20 AM AP[employer]ER [employer]ATS AND MARINE Oxygen Saturation 97% 07/16/2017 9:20 AM [employer]ATS [employer]INE Inhaled Oxygen Concentration - - Weight - [...] Lashay Downs RN - 07/16/2017 9:23 AM AP[employer]ATS AND MARINE Discharge instructions reviewed with pt. Verbalized understanding. Hard copy given to pt. To returnin 2 weeks for #3 injection of series. [employer] * Perioperative Nursing Note - Lashay Downs RN - 07/16/2017 9:07 AM [employer]ATS AND MARINE Seen by Dr. Mackey pre procedure. Consent form reviewed and signed by pt. [employer]INE * Op Note - Clive Mackey MD [...] be discharged home. ICD 10 code: M54.16 [employer]ATS [employer]INE documented in this encounter Plan of Treatment Not on file documented as of this encounter Procedures Procedure Name Priority Date/Time Associated Diagnosis Comments XR SPINE LUMBAR 2 OR 3 VIEWS IP Routine 07/16/2017 9:17 AM [employer]ATS [employer]INE INJECTION TRANSFORAMINAL LUMBO/SACRAL 1 LEVEL 07/16/2017 9:08 AM [employer]ATS [employer] MARINE Case Notes RT L5-S1 TF (2ND) documented in this encounter Results * XR Spine Lumbar 2 or 3 Views (07/16/2017 9:17 AM [employer]) Narrative [facility] - 07/16/2017 9:18 AM [employer] The images from this study are not interpreted by Radiology. ??Please refer to the physician's procedure / OR operative note. us Clive Mackey MD IMG XR PROCEDURES Final Re sult [facility] documented in this encounter Visit Diagnoses Not on filedocumented in this encounter Active and Recently Administered Medications Times are shown in [employer]. PRN Medication Order 07/14/2017 07/15/2017 07/16/2017 dexamethasone [...] 07/16/2017 documented in this encounter Care Teams Public [place] Attendant Relationship Specialty [place] [address] [facility] [address] [place] [address] Rheumatology 02/21/17 Lashay Downs, RN Registered Nurse Pain Management 06/17/17 documented as of this encounter
--- OUTSIDE RECORDS SUMMARY | 2024-06-14 23:34 | XMS_ITS | Encounter Summary ---
Author Organization [facility] Healthcare Address [address] [place] [address] Care Team Providers Care Bowling Floor Manager Name Role Phone Criss Blanco MD Unavailable Lashay Downs RN Unavailable Unavailab Duke Goodwin RN Unavailable Unavailabl e Reason for Visit * Reason Onset Date Comments Follow-up 09/11/2017 inj Encounter Details Date Type Department Care Team (Late st Contact Info) Description 09/11/2017 Telephone [facility] Pain [facility] 2 [facility] [address] [place] [address] Clive Mackey MD [address] [place] [address] [address] [place] [address] Follow-up (inj) Social History Tobacco Use Types Packs/Day Years Used Date Smoking Tobacco: Former Cigarettes 2 30 Smokeless Tobacco: Never Comments:Smoking History Pac ks/day: 2 Packs Alcohol Use Standard Drinks/Week Comments Yes 2 (1 standard drink = 0.6 oz pur e alcohol) Sex and Gender Information Value Date Recorded Sex Assigned at Not on file Legal Sex Male 12:56 AM DOG SHOW JUDGE Gender Identity Not on file Sexual Orientation Not on file documented as of this encounter Miscellaneous Notes * Telephone Encounter - Rona Mora RN - 09/11/2017 3:25 PM CDT No answer. documented in this encounter Plan of Treatment Not on file documented as of this encounter Visit Diagnoses Not on filedocumented in this encounter Care Teams Bowling Floor Manager Relationship Specialty [place] [address] [facility] [address] [place] [address] Rheumatology 02/21/17 Lashay Downs, RN Registered Nurse Pain Management 06/17/17 Duke Do, RN Registered Nurse 09/09/17 documented as of this encounter
--- OUTSIDE RECORDS SUMMARY | 2024-06-14 23:34 | XMS_ITS | Encounter Summary ---
Author Organization [facility] Healthcare Address [address] [place] [address] Care Team Providers Care Clinical Resource Nurse Name Role Phone Criss Blanco MD Unavailable Lashay Downs RN Unavailable Unavailab le Encounter Details Date Type Department Care Team (Late st Contact Info) Description 07/30/2017 8:45 AM PHYSICAL SCIENCE TECHNICIAN Ancillary Procedure [facility] [address] [place] [address] Clive Mackey MD 2 [facility] [address] [place] [address] Pain Social History Tobacco Use Types Packs/Day Years Used Date Smoking Tobacco: Former Cigarettes 2 30 Smokeless Tobacco: Never Comments:Smoking History Pac ks/day: 2 Packs Alcohol Use Standard Drinks/Week Comments Yes 2 (1 standard drink = 0.6 oz pur e alcohol) Sex and Gender Information Value Date Recorded Sex Assigned at Not on file Legal Sex Male 12:56 AM PHYSICAL SCIENCE TECHNICIAN Gender Identity Not on file Sexual Orientation Not on file documented as of this encounter Plan of Treatment Not on file documented as of this encounter Procedures Procedure Name Priority Date/Time Associated Diagnosis Comments XR SPINE LUMBAR 2 OR 3 VIEWS Schedule Routine, Read Routine (OP Routine) 07/30/2017 9:27 AM PHYSICAL SCIENCE TECHNICIAN Pain documented in this encounter Results * XR Spine Lumbar 2 or 3 Views (07/30/2017 9:27 AM PHYSICAL SCIENCE TECHNICIAN) Narrative [facility] - 07/30/2017 9:28 AM PHYSICAL SCIENCE TECHNICIAN The images from this study are not interpreted by Radiology. ??Please refer to the physician's procedure / OR operative note. us Clive Mackey MD IMG XR PROCEDURES Final Re sult [facility] documented in this encounter Visit Diagnoses Diagnosis Pain Generalized pain documented in this encounter Care Teams Clinical Resource Nurse Relationship Specialty [place] [address] [facility] [address] [place] [address] Rheumatology 02/21/17 Lashay Downs, RN Registered Nurse Pain Management 06/17/17 documented as of this encounter
--- OUTSIDE RECORDS SUMMARY | 2024-06-14 23:34 | XMS_ITS | Encounter Summary ---
Author Organization [facility] Healthcare Address [address] [place] [address] Care Team Providers Care Ball Points Inspector Name Role Phone Criss Blanco MD Unavailable Lashay Downs RN Unavailable Unavailab le Encounter Details Date Type Department Care Team (Latest Contact Info) Description 07/09/2017 8:32 AM TAKER OFF - 07/09/2017 9:16 AM TAKER OFF Hospital Encounter [facility] Pain Management [facility] [address] [place] [address] [place] [address] Clive Mackey MD 2 [facility] [address] [place] [address] Discharge Disposition: Discharge to home or self [...] on file Legal Sex Male 12:56 AM TAKER OFF Gender Identity Not on file Sexual Orientation Not on file documented as of this encounter Last Filed Vital Signs Vital Sign Reading Time Taken Comments Blood Pressure 127/87 07/09/2017 9:09 AM TAKER OFF Pulse 72 07/09/2017 9:09 AM TAKER OFF Temperature 35.8 ??C (96.4 ??F) 07/09/2017 8:40 AM CS T Respiratory Rate - - Oxygen Saturation 97% 07/09/2017 9:09 AM TAKER OFF Inhaled Oxygen Concentration - - Weight - - Height - - Body Mass Index - - documented in this encounter Discharge Instructions * Discharge Instructions* Duke Do RN - 07/09/2017 8:59 AM TAKER OFF Discharge instructions reviewed. Signed copy given to patient. Patient verbalized understanding. Patient to return in one week for 2nd injection. R OFF documented in this encounter Medications at Time [...] discharged home. ICD 10 code: M54.16 R OFF documented in this encounter Plan of Treatment Not on file documented as of this encounter Procedures Procedure Name Priority Date/Time Associated Diagnosis Comments INJECTION TRANSFORAMINAL LUMBO/SACRAL 1 LEVEL BILATERAL 58998-12 07/09/2017 8:58 AM TAKER OFF Case Notes RT PARA L4-5 (TLESI) documented in this encounter Visit Diagnoses Not on filedocumented in this encounter Active and Recently Administered Medications Times are shown in TAKER OFF. PRN Medication Order 07/07/2017 07/08/2017 07/09/2017 dexamethasone [...] 07/09/2017 documented in this encounter Care Teams Ball Points Inspector Relationship Specialty [place] [address] [address] Rheumatology 02/21/17 Lashay Downs, GAY Registered Nurse Pain Management 06/17/17 documented as of this encounter
--- OUTSIDE RECORDS SUMMARY | 2024-06-14 23:34 | XMS_ITS | Encounter Summary ---
Author Organization [facility] Healthcare Address [address] [place] [address] Care Team Providers Care Dental Hygienist Mobile Coordinator Name Role Phone Criss Blanco MD Unavailable Lashay Downs RN Unavailable Unavailab le Encounter Details Date Type Department Care Team (Late st Contact Info) Description 07/30/2017 9:00 AM INORGANIC CHEMISTRY PROFESSOR - 07/30/2017 9:15 AM [facility] Surgery [facility] [address] [place] [address] [address] [place] [address] Clive Mackey MD [address] [place] [address] [address] [place] [address] Injection Transforaminal Lumbo/Sacral 1 Level [address] Surgery Details Date/Time Status Location OR Service Patient Class Case Class Case Type Trauma Case? 07/30/2017 9:00 AM Posted [facility] Pain Management Procedure Center [facility] PM 1 Pain Management Outpatient Elective Panel 1 Procedure LRB Anes Op Region Wound Class Comments Injection Transforaminal Lum barrera/Sacral 1 Level [address] Right Local Back N/A Surgeon Surgeon Role [...] on file Legal Sex Male 12:56 AM INORGANIC CHEMISTRY PROFESSOR Gender Identity Not on file Sexual Orientation Not on file documented as of this encounter Last Filed Vital Signs Vital Sign Reading Time Taken Comments Blood Pressure 108/78 07/30/2017 9:02 AM INORGANIC CHEMISTRY PROFESSOR Pulse 88 07/30/2017 9:02 AM INORGANIC CHEMISTRY PROFESSOR Temperature 35.8 ??C (96.5 ??F) 07/30/2017 9:02 AM CS T Respiratory Rate 16 07/30/2017 9:02 AM INORGANIC CHEMISTRY PROFESSOR Oxygen Saturation 98% 07/30/2017 9:02 AM INORGANIC CHEMISTRY PROFESSOR Inhaled Oxygen Concentration - - Weight - - Height - - Body Mass Index - - documented in this encounter Discharge Instructions * Discharge Instructions* Rona Mora RN - 07/30/2017 9:29 AM INORGANIC CHEMISTRY PROFESSOR Return in 3 weeks for 4th inj. GANIC CHEMISTRY PROFESSOR documented in this encounter Medications at [...] documented in this encounter Nursing Notes * Roan Mora RN - 07/30/2017 9:09 AM CST Patient will receive pain medication today. GANIC CHEMISTRY PROFESSOR documented in this encounter Miscellaneous Notes [...] be discharged home. ICD 10 code: M49.06 GANIC CHEMISTRY PROFESSOR documented in this encounter Plan of Treatment Not on file documented as of this encounter Procedures Procedure Name Priority Date/Time Associated Diagnosis Comments INJECTION TRANSFORAMINAL LUMBO/SACRAL 1 LEVEL 07/30/2017 9:14 AM INORGANIC CHEMISTRY PROFESSOR Case Notes RT L5-S1 TF (3RD) documented in this encounter Visit Diagnoses Not on filedocumented in this encounter Administered Medications Inactive Administered Medications - up to 3 most recent administrations Medication Order MAR Action Action Date Dose Rate Site dexamethasone (DECADRON) injection As needed, Starting on Sat07/30/17 at 0918, Intra-Op Given 07/30/2017 9:22 AM INORGANIC CHEMISTRY PROFESSOR 10 mg Back iohexol (OMNIPAQUE) 240 mg iodine/mL injection solution As needed, Starting on Sat07/30/17 at 0918, Intra-Op Given 07/30/2017 9:22 AM INORGANIC CHEMISTRY PROFESSOR 4 mL Back sodium chloride 0.9% solution As needed, Starting on Sat07/30/17 at 0918, Intra-Op Given 07/30/2017 9:21 AM INORGANIC CHEMISTRY PROFESSOR 2 mL Back documented in this encounter [...] 1 mg by mouth every morning 05/29/2019 [id number] foreign-minerals 18-0.4 mg tabletIndications :Mineral Deficiency Prevention,Vitami n Deficiency Prevention Take 1 tablet by mouth every morning 06/30/2019 added in this encounter Active and Recently Administered Medications Times are shown in INORGANIC CHEMISTRY PROFESSOR. PRN Medication Order 07/28/2017 07/29/2017 07/30/2017 dexamethasone [...] epidural) documented in this encounter Care Teams Dental Hygienist Mobile Coordinator Relationship Specialty [place] [address] [place] [address] Rheumatology 02/21/17 Lashay Downs, GAY Registered Nurse Pain Management 06/17/17 documented as of this encounter
--- OUTSIDE RECORDS SUMMARY | 2024-06-14 23:34 | XMS_ITS | Encounter Summary ---
Author Organization [facility] Healthcare Address [address] [place] [address] Care Team Providers Care Flute Polisher Name Role Phone Criss Blanco MD Unavailable Lashay Downs RN Unavailable Unavailab le Encounter Details Date Type Department Care Team (Late st Contact Info) Description 07/16/2017 9:00 AM CAREER DEVELOPMENT FACILITATOR - 07/16/2017 9:15 AM [facility] Surgery [facility] [address] [place] [address] [address] [place] [address] Clive Mackey MD [address] [place] [address] [address] [place] [address] Injection Transforaminal Lumbo/Sacral 1 Level [address] Surgery Details Date/Time Status Location OR Service Patient Class Case Class Case Type Trauma Case? 07/16/2017 9:00 AM Posted [facility] Pain Management Procedure Center [facility] PM 1 Pain Management Outpatient Elective Panel 1 Procedure LRB Anes Op Region Wound Class Comments Injection Transforaminal Lum barrera/Sacral 1 Level [address] Right Local Back Class I - Clean [...] on file Legal Sex Male 12:56 AM CAREER DEVELOPMENT FACILITATOR Gender Identity Not on file Sexual Orientation Not on file documented as of this encounter Last Filed Vital Signs Vital Sign Reading Time Taken Comments Blood Pressure 113/75 07/16/2017 9:03 AM CAREER DEVELOPMENT FACILITATOR Pulse 78 07/16/2017 9:03 AM CAREER DEVELOPMENT FACILITATOR Temperature 36.7 ??C (98 ??F) 07/16/2017 9:03 AM CAREER DEVELOPMENT FACILITATOR Respiratory Rate 16 07/16/2017 9:03 AM CAREER DEVELOPMENT FACILITATOR Oxygen Saturation - - Inhaled Oxygen Concentration [...] Lashay Downs RN - 07/16/2017 9:23 AM CAREER DEVELOPMENT FACILITATOR Discharge instructions reviewed with pt. Verbalized understanding. Hard copy given to pt. To returnin 2 weeks for #3 injection of series. ER DEVELOPMENT FACILITATOR * Perioperative Nursing Note - Lashay Downs RN - 07/16/2017 9:07 AM CAREER DEVELOPMENT FACILITATOR Seen by Dr. Mackey pre procedure. Consent form reviewed and signed by pt. ER DEVELOPMENT FACILITATOR * Op Note - Clive Mackey MD [...] be discharged home. ICD 10 code: M54.16 ER DEVELOPMENT FACILITATOR documented in this encounter Plan of Treatment Not on file documented as of this encounter Procedures Procedure Name Priority Date/Time Associated Diagnosis Comments XR SPINE LUMBAR 2 OR 3 VIEWS IP Routine 07/16/2017 9:17 AM CAREER DEVELOPMENT FACILITATOR INJECTION TRANSFORAMINAL LUMBO/SACRAL 1 LEVEL 07/16/2017 9:08 AM CAREER DEVELOPMENT FACILITATOR Case Notes RT L5-S1 TF (2ND) documented in this encounter Results * XR Spine Lumbar 2 or 3 Views (07/16/2017 9:17 AM CAREER DEVELOPMENT FACILITATOR) Narrative [facility] - 07/16/2017 9:18 AM CAREER DEVELOPMENT FACILITATOR The images from this study are not [...] at 0913, Intra-Op Given 07/16/2017 9:16 AM CAREER DEVELOPMENT FACILITATOR 10 mg Back iohexol (OMNIPAQUE) 240 mg iodine/mL injection solution As needed, Starting on Sat07/16/17 at 0912, Intra-Op Given 07/16/2017 9:15 AM CAREER DEVELOPMENT FACILITATOR 2 mL Back lidocaine (XYLOCAINE) 10 mg/mL (1 %) preservative free injection As needed, Starting on Sat07/16/17 at 0912, Intra-Op Given 07/16/2017 9:12 AM CAREER DEVELOPMENT FACILITATOR 2 mL Back sodium chloride 0.9% solution As needed, Starting on 07/16/17 at 0912, Intra-Op Given 07/16/2017 9:14 AM CAREER DEVELOPMENT FACILITATOR 2 mL Back documented in this encounter Active and Recently Administered Medications Times are shown in CAREER DEVELOPMENT FACILITATOR. PRN Medication Order 07/14/2017 07/15/2017 07/16/2017 dexamethasone [...] epidural) documented in this encounter Care Teams Flute Polisher Relationship Specialty [place] [address] [facility] [address] [place] [address] Rheumatology 02/21/17 Lashay Downs, GAY Registered Nurse Pain Management 06/17/17 documented as of this encounter
--- OUTSIDE RECORDS SUMMARY | 2024-06-14 23:34 | XMS_ITS | Encounter Summary ---
Author Organization [facility] Healthcare Address [address] [place] [address] Care Team Providers Care Log Brander Name Role Phone Criss Blanco MD Unavailable Lashay Downs RN Unavailable Unavailab Duke Goodwin RN Unavailable Unavailabl e Encounter Details Date Type Department Care Team (Late st Contact Info) Description 09/10/2017 9:45 AM CDT - 09/10/2017 10:00 AM CDT Surgery [facility] 2 [facility] [address] [place] [address] Clive Mackey MD [address] [place] [address] [address] [place] [address] Injection Epidural Lumbar/Caudal 1 Level Pain Pump Trial W Imaging [address] Surgery Details Date/Time Status Location OR Service Patient Class Case Class Case Type Trauma Case? 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
--- OUTSIDE RECORDS SUMMARY | 2024-06-14 23:34 | XMS_ITS | Encounter Summary ---
Author Organization [facility] Healthcare Address [address] [place] [address] Care Team Providers Care Cut Lace Machine Operator Name Role Phone Criss Blanco MD Unavailable Lashay Downs RN Unavailable Unavailab Duke Goodwin RN Unavailable Unavailabl e Encounter Details Date Type Department Care Team (Latest Contact Info) Description 09/10/2017 8:42 AM CDT - 09/10/2017 10:05 AM CDT Hospital Encounter [facility] [address] [place] [address] [place] [address] Clive Mackey MD [address] [place] [address] Discharge Disposition: Discharge to home or self [...] file Legal Sex Male 12:56 AM MEDICAL 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
--- OUTSIDE RECORDS SUMMARY | 2024-06-14 23:34 | XMS_ITS | Encounter Summary ---
Author Organization [facility] Healthcare Address [address] [place] [address] Care Team Providers Care Courier Delivery Driver Name Role Phone Criss Blanco MD Unavailable Lashay Downs RN Unavailable Unavailab Duke Goodwin RN Unavailable Unavailabl e Encounter Details Date Type Department Care Team (Late st Contact Info) Description 09/10/2017 9:50 AM CDT Ancillary Procedure [facility] 1 [facility] [place] [address] Clive Mackey MD 2 [facility] [address] [place] [address] Social History Tobacco Use Types Packs/Day Years Used Date Smoking Tobacco: Former Cigarettes 2 30 Smokeless Tobacco: Never Comments:Smoking History Pac ks/day: 2 Packs Alcohol Use Standard Drinks/Week Comments Yes 2 (1 standard drink = 0.6 oz pur e alcohol) Sex and Gender Information Value Date Recorded Sex Assigned at Not on file Legal Sex Male 12:56 AM CHEMICAL UNIT OPERATOR Gender Identity Not on file Sexual [...] on filedocumented in this encounter Care Teams Courier Delivery Driver Relationship Specialty [place] [address] [facility] [address] [place] [address] Rheumatology 02/21/17 Lashay Downs, RN Registered Nurse Pain Management 06/17/17 Duke Do, RN Registered Nurse 09/09/17 documented as of this encounter
--- OUTSIDE RECORDS SUMMARY | 2024-06-14 23:34 | XMS_ITS | Encounter Summary ---
Author Organization [facility] Healthcare Address [address] [place] [address] Care Team Providers Care Music Director Name Role Phone Criss Blanco MD Unavailable Lashay Downs RN Unavailable Unavailab Duke Goodwin RN Unavailable Unavailabl e Encounter Details Date Type Department Care Team (Late st Contact Info) Description 10/04/2017 8:45 AM CDT - 10/04/2017 9:00 AM CDT Surgery [facility] 2 [facility] [address] [place] [address] Clive Mackey MD [address] [place] [address] [address] [place] [address] Injection Epidural Lumbar/Caudal 1 Level Pain Pump Trial W Imaging [id number] Surgery Details Date/Time Status Location OR Service Patient Class Case Class Case Type Trauma Case? 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 90 tablet 10/04/2017 01/30/2019 zrzqyuesadqt-Jd-e foreign-minerals 18-0.4 mg tabletIndications :Mineral Deficiency Prevention,Vitami [...] 1 LEVEL PAIN PUMP TRIAL W IMAGING [address] 10/04/2017 8:50 AM CDT Case Notes L5-S1 [...] Epidural) documented in this encounter Care Teams Music Director Relationship Specialty [place] [address] [address] Rheumatology 02/21/17 Lashay Downs, RN Registered Nurse Pain Management 06/17/17 Duke Do, RN Registered Nurse 09/09/17 documented as of this encounter
--- OUTSIDE RECORDS SUMMARY | 2024-06-14 23:34 | XMS_ITS | Encounter Summary ---
Author Organization [facility] Healthcare Address [address] [place] [address] Care Team Providers Care Foot Cutter Name Role Phone Criss Blanco MD Unavailable Lashay Downs RN Unavailable Unavailab le Encounter Details Date Type Department Care Team (Late st Contact Info) Description 07/16/2017 9:05 AM DELIVERY LEAD Ancillary Procedure [facility] 1 [facility] [place] [address] Clive Mackey MD 2 [facility] [address] [place] [address] Social History Tobacco Use Types Packs/Day Years Used Date Smoking Tobacco: Former Cigarettes 2 30 Smokeless Tobacco: Never Comments:Smoking History Pac ks/day: 2 Packs Alcohol Use Standard Drinks/Week Comments Yes 2 (1 standard drink = 0.6 oz pur e alcohol) Sex and Gender Information Value Date Recorded Sex Assigned at Not on file Legal Sex Male 12:56 AM DELIVERY LEAD Gender Identity Not on file Sexual Orientation Not on file documented as of this encounter Plan of Treatment Not on file documented as of this encounter Procedures Procedure Name Priority Date/Time Associated Diagnosis Comments XR SPINE LUMBAR 2 OR 3 VIEWS IP Routine 07/16/2017 9:17 AM DELIVERY LEAD documented in this encounter Results * XR Spine Lumbar 2 or 3 Views (07/16/2017 9:17 AM DELIVERY LEAD) Narrative [facility] - 07/16/2017 9:18 AM DELIVERY LEAD The images from this study are not interpreted by Radiology. ??Please refer to the physician's procedure / OR operative note. us Clive Mackey MD IMG XR PROCEDURES Final Re sult [facility] documented in this encounter Visit Diagnoses Not on filedocumented in this encounter Care Teams Foot Cutter Relationship Specialty [place] [address] [facility] [address] [place] [address] Rheumatology 02/21/17 Lashay Downs, RN Registered Nurse Pain Management 06/17/17 documented as of this encounter
--- OUTSIDE RECORDS SUMMARY | 2024-06-14 23:34 | XMS_ITS | Encounter Summary ---
Author Organization [facility] Healthcare Address [address] [place] [address] Care Team Providers Care Radiation Protection Specialist Name Role Phone Criss Blanco MD Unavailable Lashay Downs RN Unavailable Unavailab Duke Goodwin RN Unavailable Unavailabl e Reason for Visit * Reason Comments Follow-up post injection Encounter Details Date Type Department Care Team (Late st Contact Info) Description 09/09/2017 3:00 PM CDT Office Visit [facility] 2 [facility] [address] [place] [address] Clive Mackey MD [address] [place] [address] [address] [place] [address] Acute bilateral low back pain without sciatica [...] on file Legal Sex Male 12:56 AM CERAMIC SPRAYER Gender Identity Not on file Sexual Orientation [...] or trauma. 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 Pt thinks captain's chair [...] disc documented in this encounter Care Teams Radiation Protection Specialist Relationship Specialty [place] [address] [facility] [address] [place] [address] Rheumatology 02/21/17 Lashay Downs, RN Registered Nurse Pain Management 06/17/17 Duke Do, RN Registered Nurse 09/09/17 documented as of this encounter
--- OUTSIDE RECORDS SUMMARY | 2024-06-14 23:34 | XMS_ITS | Encounter Summary ---
Author Organization [facility] Healthcare Address [address] [place] [address] Care Team Providers Care Electric Gas Appliances Demonstrator Name Role Phone Criss Blanco MD Unavailable Lashay Downs RN Unavailable Unavailab le Encounter Details Date Type Department Care Team (Late st Contact Info) Description 07/09/2017 8:35 AM INJECTION MACHINE OPERATOR Ancillary Procedure [facility] 1 [facility] [place] [address] Clive Mackey MD 2 [facility] [address] [place] [address] Pain Social History Tobacco Use Types Packs/Day Years Used Date Smoking Tobacco: Former Cigarettes 2 30 Smokeless Tobacco: Never Comments:Smoking History Pac ks/day: 2 Packs Alcohol Use Standard Drinks/Week Comments Yes 2 (1 standard drink = 0.6 oz pur e alcohol) Sex and Gender Information Value Date Recorded Sex Assigned at Not on file Legal Sex Male 12:56 AM INJECTION MACHINE OPERATOR Gender Identity Not on file Sexual Orientation Not on file documented as of this encounter Plan of Treatment Not on file documented as of this encounter Procedures Procedure Name Priority Date/Time Associated Diagnosis Comments XR SPINE LUMBAR 2 OR 3 VIEWS Schedule Routine, Read Routine (OP Routine) 07/09/2017 9:10 AM INJECTION MACHINE OPERATOR Pain documented in this encounter Results * XR Spine Lumbar 2 or 3 Views (07/09/2017 9:10 AM INJECTION MACHINE OPERATOR) Narrative [facility] - 07/09/2017 9:11 AM INJECTION MACHINE OPERATOR The images from this study are not interpreted by Radiology. ??Please refer to the physician's procedure / OR operative note. us Clive Mackey MD IMG XR PROCEDURES Final Re sult [facility] documented in this encounter Visit Diagnoses Diagnosis Pain Generalized pain documented in this encounter Care Teams Electric Gas Appliances Demonstrator Relationship Specialty [place] [address] [facility] [address] [place] [address] Rheumatology 02/21/17 Lashay Downs, RN Registered Nurse Pain Management 06/17/17 documented as of this encounter
--- OUTSIDE RECORDS SUMMARY | 2024-06-14 23:34 | XMS_ITS | Encounter Summary ---
Author Organization [facility] Healthcare Address [address] [place] [address] Care Team Providers Care Inspector Filters Name Role Phone Criss Blanco MD Unavailable Lashay Downs RN Unavailable Unavailab le Encounter Details Date Type Department Care Team (Late st Contact Info) Description 07/09/2017 8:45 AM CHANNEL MARKETING MANAGER - 07/09/2017 9:00 AM [facility] [address] [place] [address] [address] [place] [address] Clive Mackey MD [address] [place] [address] [address] [place] [address] Injection Transforaminal Lumbo/Sacral 1 Level Bilateral 51532-07 Surgery Details Date/Time Status Location OR Service Patient Class Case Class Case Type Trauma Case? 07/09/2017 8:45 AM Posted [facility] Pain Management Procedure Center [facility] PM 1 Pain Management Outpatient Elective Panel 1 Procedure LRB Anes Op Region Wound Class Comments Injection Transforaminal Lum barrera/Sacral 1 Level Bilateral 39946-44 Right Local Back Surgeon Surgeon Role Service [...] on file Legal Sex Male 12:56 AM CHANNEL MARKETING MANAGER Gender Identity Not on file Sexual Orientation Not on file documented as of this encounter Last Filed Vital Signs Vital Sign Reading Time Taken Comments Blood Pressure 118/77 07/09/2017 8:40 AM CHANNEL MARKETING MANAGER Pulse 75 07/09/2017 8:40 AM CHANNEL MARKETING MANAGER Temperature 35.8 ??C (96.4 ??F) 07/09/2017 8:40 AM CS T Respiratory Rate - - Oxygen Saturation - - Inhaled Oxygen Concentration - - Weight - - Height - - Body Mass Index - - documented in this encounter Discharge Instructions * Discharge Instructions* Duke Do RN - 07/09/2017 8:59 AM CHANNEL MARKETING MANAGER Discharge instructions reviewed. Signed copy given to patient. Patient verbalized understanding. Patient to return in one week for 2nd injection. NEL MARKETING MANAGER documented in this encounter Medications at Time [...] be discharged home. ICD 10 code: M54.16 NEL MARKETING MANAGER documented in this encounter Plan of Treatment Not on file documented as of this encounter Procedures Procedure Name Priority Date/Time Associated Diagnosis Comments INJECTION TRANSFORAMINAL LUMBO/SACRAL 1 LEVEL BILATERAL 96749-90 07/09/2017 8:58 AM CHANNEL MARKETING MANAGER Case Notes RT PARA L4-5 (TLESI) documented in this encounter Visit Diagnoses Not on filedocumented in this encounter Administered Medications Inactive Administered Medications - up to 3 most recent administrations Medication Order MAR Action Action Date Dose Rate Site dexamethasone (DECADRON) injection As needed, Starting on 07/09/17 at 0852, Intra-Op Given 07/09/2017 8:52 AM CHANNEL MARKETING MANAGER 10 mg Back iohexol (OMNIPAQUE) 240 mg iodine/mL injection solution As needed, Starting on 07/09/17 at 0852, Intra-Op Given 07/09/2017 8:52 AM CHANNEL MARKETING MANAGER 4 mL Back lidocaine (XYLOCAINE) 10 mg/mL (1 %) injection As needed, Starting on 07/09/17 at 0852, Intra-Op, Indications: Administration of Local AnesthesiaIndications:Administratio n of Local Anesthesia Given 07/09/2017 8:52 AM CHANNEL MARKETING MANAGER 2 mL Back sodium chloride 0.9% solution As needed, Starting on 07/09/17 at 0853, Intra-Op Given 07/09/2017 8:53 AM CHANNEL MARKETING MANAGER 2 mL Back documented in this encounter Active and Recently Administered Medications Times are shown in CHANNEL MARKETING MANAGER. PRN Medication Order 07/07/2017 07/08/2017 07/09/2017 dexamethasone [...] Epidural) documented in this encounter Care Teams Inspector Filters Relationship Specialty [place] [address] [facility] [address] [place] [address] Rheumatology 02/21/17 Lashay Downs, RN Registered Nurse Pain Management 06/17/17 documented as of this encounter
--- OUTSIDE RECORDS SUMMARY | 2024-06-14 23:34 | XMS_ITS | Encounter Summary ---
Author Organization [facility] Healthcare Address [address] [place] [address] Care Team Providers Care Aoc Director Combat Plans Officer Name Role Phone Criss Blanco MD Unavailable Lashay Downs RN Unavailable Unavailab Duke Goodwin RN Unavailable Unavailabl e Encounter Details Date Type Department Care Team (Late st Contact Info) Description 10/04/2017 8:50 AM CDT Ancillary Procedure [facility] 1 [facility] [place] [address] Clive Mackey MD 2 [facility] [address] [place] [address] Social History Tobacco Use Types Packs/Day Years Used Date Smoking Tobacco: Former Cigarettes 2 30 Smokeless Tobacco: Never Comments:Smoking History Pac ks/day: 2 Packs Alcohol Use Standard Drinks/Week Comments Yes 2 (1 standard drink = 0.6 oz pur e alcohol) Sex and Gender Information Value Date Recorded Sex Assigned at Not on file Legal Sex Male 12:56 AM BUYER RENTER Gender Identity Not on file Sexual Orientation [...] on filedocumented in this encounter Care Teams Aoc Director Combat Plans Officer Relationship Specialty [place] [address] [facility] [address] [place] [address] Rheumatology 02/21/17 Lashay Downs, RN Registered Nurse Pain Management 06/17/17 Duke Do, RN Registered Nurse 09/09/17 documented as of this encounter
--- OUTSIDE RECORDS SUMMARY | 2024-06-14 23:34 | XMS_ITS | Encounter Summary ---
Author Organization [facility] Healthcare Address [address] [place] [address] Care Team Providers Care Independent Living Specialist Name Role Phone Criss Blanco MD Unavailable Lashay Downs RN Unavailable Unavailab le Encounter Details Date Type Department Care Team (Latest Contact Info) Description 07/30/2017 8:46 AM ASSOCIATE CURATOR - 07/30/2017 9:31 AM ASSOCIATE CURATOR Hospital Encounter [facility] [address] [place] [address] [place] [address] Clive Mackey MD 2 [facility] [address] [place] [address] Discharge Disposition: Discharge to home or self [...] file Legal Sex Male 12:56 AM ASSOCIATE CURATOR Gender Identity Not on file Sexual Orientation Not on file documented as of this encounter Last Filed Vital Signs Vital Sign Reading Time Taken Comments Blood Pressure 122/75 07/30/2017 9:27 AM ASSOCIATE CURATOR Pulse 76 07/30/2017 9:27 AM ASSOCIATE CURATOR Temperature 35.8 ??C (96.5 ??F) 07/30/2017 9:02 AM CS T Respiratory Rate 15 07/30/2017 9:27 AM ASSOCIATE CURATOR Oxygen Saturation 98% 07/30/2017 9:27 AM ASSOCIATE CURATOR Inhaled Oxygen Concentration - - Weight - - Height - - Body Mass Index - - documented in this encounter Discharge Instructions * Discharge Instructions* Rona Mora RN - 07/30/2017 9:29 AM ASSOCIATE CURATOR Return in 3 weeks for 4th inj. CIATE CURATOR documented in this encounter Medications at Time [...] CST Patient will receive pain medication today. CIATE CURATOR documented in this encounter Miscellaneous Notes * [...] be discharged home. ICD 10 code: M49.06 CIATE CURATOR documented in this encounter Plan of Treatment Not on file documented as of this encounter Procedures Procedure Name Priority Date/Time Associated Diagnosis Comments INJECTION TRANSFORAMINAL LUMBO/SACRAL 1 LEVEL 07/30/2017 9:14 AM ASSOCIATE CURATOR Case Notes RT L5-S1 TF (3RD) documented [...] 1 mg by mouth every morning 05/29/2019 xeghddblimja-Jj-j foreign-minerals 18-0.4 mg tabletIndications :Mineral Deficiency Prevention,Vitami n Deficiency Prevention Take 1 tablet by mouth every morning 06/30/2019 added in this encounter Active and Recently Administered Medications Times are shown in ASSOCIATE CURATOR. PRN Medication Order 07/28/2017 07/29/2017 07/30/2017 dexamethasone [...] 07/30/2017 documented in this encounter Care Teams Independent Living Specialist Relationship Specialty [place] [address] [address] Rheumatology 02/21/17 Lashay Downs, GAY Registered Nurse Pain Management 06/17/17 documented as of this encounter
--- OUTSIDE RECORDS SUMMARY | 2024-06-14 23:34 | XMS_ITS | Encounter Summary ---
Author Organization [facility] Healthcare Address [address] [place] [address] Care Team Providers Care Miniature Set Builder Name Role Phone Criss Blanco MD Unavailable Lashay Downs RN Unavailable Unavailab Duke Goodwin RN Unavailable Unavailabl e Encounter Details Date Type Department Care Team (Late st Contact Info) Description 09/17/2017 9:00 AM CDT - 09/17/2017 9:15 AM CDT Surgery [facility] [address] [facility] [address] [place] [address] Clive Mackey MD [address] [place] [address] [address] [place] [address] Injection Epidural Lumbar/Caudal 1 Level Pain Pump Trial W Imaging [address] Surgery Details Date/Time Status Location OR Service Patient Class Case Class Case Type Trauma Case? 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 Gender Identity Not on file Sexual Orientation [...] 1 mg by mouth every morning 05/29/2019 qqjkxxttfqrz-Os-y foreign-minerals 18-0.4 mg tabletIndications :Mineral Deficiency Prevention,Vitami [...] Miscellaneous Notes * Perioperative Nursing Note - Lashya Downs RN - 09/17/2017 9:20 AM CDT [...] 1 LEVEL PAIN PUMP TRIAL W IMAGING [address] 09/17/2017 9:06 AM CDT Case Notes L5-S1 [...] epidural) documented in this encounter Care Teams Miniature Set Builder Relationship Specialty [place] [address] [facility] [address] [place] [address] Rheumatology 02/21/17 Lashay Downs, RN Registered Nurse Pain Management 06/17/17 Duke Do, RN Registered Nurse 09/09/17 documented as of this encounter
--- OUTSIDE RECORDS SUMMARY | 2024-06-14 23:34 | XMS_ITS | Encounter Summary ---
Author Organization [facility] Healthcare Address [address] [place] [address] Care Team Providers Care Back End Engineer Name Role Phone Criss Blanco MD Unavailable Lashay Downs RN Unavailable Unavailab Duke Goodwin RN Unavailable Unavailabl e Encounter Details Date Type Department Care Team (Latest Contact Info) Description 09/17/2017 8:56 AM CDT - 09/17/2017 9:21 AM CDT Hospital Encounter [facility] [address] [place] [address] [place] [address] Clive Mackey MD [address] [place] [address] Discharge Disposition: Discharge to home or self [...] on file Legal 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 Male 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 Gender Identity Not on file Sexual Orientation [...] 1 mg by mouth every morning 05/29/2019 cxkrfukftsbo-Lh-v foreign-minerals 18-0.4 mg tabletIndications :Mineral Deficiency Prevention,Vitami [...] 1 LEVEL PAIN PUMP TRIAL W IMAGING [address] 09/17/2017 9:06 AM CDT Case Notes L5-S1 [...] 09/17/2017 documented in this encounter Care Teams Back End Engineer Relationship Specialty [place] [address] [facility] [address] [place] [address] Rheumatology 02/21/17 Lashay Downs, RN Registered Nurse Pain Management 06/17/17 Duke Do, RN Registered Nurse 09/09/17 documented as of this encounter
--- OUTSIDE RECORDS SUMMARY | 2024-06-14 23:34 | XMS_ITS | Encounter Summary ---
Author Organization [facility] Healthcare Address [address] [place] [address] Care Team Providers Care Shoulder Boner Name Role Phone Criss Blanco MD Unavailable Lashay Downs RN Unavailable Unavailab Duke Goodwin RN Unavailable Unavailabl e Encounter Details Date Type Department Care Team (Late st Contact Info) Description 09/17/2017 9:10 AM CDT Ancillary Procedure [facility] 1 [place] [address] Clive Mackey MD 2 [facility] [address] [place] [address] Social History Tobacco Use Types Packs/Day Years Used Date Smoking Tobacco: Former Cigarettes 2 30 Smokeless Tobacco: Never Comments:Smoking History Pac ks/day: 2 Packs Alcohol Use Standard Drinks/Week Comments Yes 2 (1 standard drink = 0.6 oz pur e alcohol) Sex and Gender Information Value Date Recorded Sex Assigned at Not on file 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
--- OUTSIDE RECORDS SUMMARY | 2024-06-14 23:34 | XMS_ITS | Encounter Summary ---
Author Organization [facility] Healthcare Address [address] [place] [address] Care Team Providers Care Labor Trainer Name Role Phone Criss Blanco MD Unavailable Lashay Downs RN Unavailable Unavailab Duke Goodwin RN Unavailable Unavailabl e Encounter Details Date Type Department Care Team (Latest Contact Info) Description 10/04/2017 8:42 AM CDT - 10/04/2017 9:24 AM CDT Hospital Encounter [facility] [address] [place] [address] [place] [address] Clive Mackey MD [address] [place] [address] Discharge Disposition: Discharge to home or self [...] file 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 90 tablet 10/04/2017 01/30/2019 qfqyzwmhzhvw-Lr-x foreign-minerals 18-0.4 mg tabletIndications :Mineral Deficiency Prevention,Vitami [...] 1 LEVEL PAIN PUMP TRIAL W IMAGING [address] 10/04/2017 8:50 AM CDT Case Notes L5-S1 [...] 10/04/2017 documented in this encounter Care Teams Labor Trainer Relationship Specialty [place] [address] [address] Rheumatology 02/21/17 Lashay Downs, GAY Registered Nurse Pain Management 06/17/17 Duke Do, RN Registered Nurse 09/09/17 documented as of this encounter
--- OUTSIDE RECORDS SUMMARY | 2024-06-14 23:35 | XMS_ITS | Encounter Summary ---
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); termite control service representative use of drug Social History Tobacco Use Types Packs/Day Years Used Date Smoking Tobacco: Former Cigarettes 2 30 Smokeless Tobacco: Never Comments:Smoking History Pac ks/day: 2 Packs Alcohol Use Standard Drinks/Week Comments Yes 2 (1 standard drink = 0.6 oz pur e alcohol) Sex and Gender Information Value Date Recorded Sex Assigned at Not on file Legal Sex Male 12:56 AM CORPORATE TRAINER Gender Identity Not on file Sexual Orientation Not on file documented as of this encounter Last Filed Vital Signs Vital Sign Reading Time Taken Comments Blood Pressure 120/70 07/04/2017 12:02 PM CORPORATE TRAINER Pulse 68 07/04/2017 12:02 PM CORPORATE TRAINER Temperature 37 ??C (98.6 ??F) 07/04/2017 12:02 PM CORPORATE TRAINER Respiratory Rate 20 07/04/2017 12:02 PM CORPORATE TRAINER Oxygen Saturation 98% 07/04/2017 12:02 PM CORPORATE TRAINER Inhaled Oxygen Concentration - - Weight 103 kg (227 lb) 07/04/2017 12:02 PM CORPORATE TRAINER Height 185.4 cm (6' 1 ) 07/04/2017 12:02 PM CORPORATE TRAINER Body Mass Index 29.95 07/04/2017 12:02 PM CORPORATE TRAINER documented in this encounter Ordered Prescriptions Prescription Sig Dispense Quantity Refills Last Filled Start Date End Date methotrexate 2.5 mg tablet Take 8 tablets (20 mg total) by mouth once a week. 40 tablet 3 07/04/2017 8 documented in this encounter Progress Notes * Alissa Fuentes MD - 07/04/2017 10:45 AM CST [facility] at [facility]- Rheumatology [address] [place], [place] [address] [address] Subjective/Objective Patient ID: Samuel Sanchez is a [...] Future - Sjogren's syndrome A/B antibodies; Future termite control service representative use of drug On MTX, order labs to monitor toxicity - CBC without differential; Future - Comprehensive metabolic panel; Future Other orders - methotrexate 2.5 mg tablet; Take 8 tablets (20 mg total) by mouth once a week. Alissa Fuentes MD ORATE TRAINER documented in this encounter Plan of Treatment Not on file documented as of this encounter Results * Sjogren's syndrome A/B antibodies (07/04/2017 1:10 PM CORPORATE TRAINER) Pathologist [facility] [place] SS-A/Ro Ab, IgG <0.2 <1.0 (Negative) Units [facility] SS-B/La Ab, IgG <0.2 <1.0 (Negative) Units ANDRE Comment: Test Performed by: [facility] - [address] [address] Blood specimen (specimen) 07/04/2017 1:10 PM CORPORATE TRAINER 07/04/2017 3:43 PM CORPORATE TRAINER Narrative ANDRE - 07/06/2017 2:03 PM CORPORATE TRAINER Alissa Fuentes MD LAB BLOOD ORDERABLES Final Resul t Performing Organization Address [facility] de Phone Number [facility] [address] [facility] [place] [address] * Erythrocyte sedimentation rate (07/04/2017 1:10 PM CORPORATE TRAINER) Pathologist [facility] [place] Erythrocyte sedimentation rate 4 0 - 20 mm/H [facility] Comment:Testing performed by : [facility], [address], [place] [address] Blood specimen (specimen) 07/04/2017 1:10 PM CORPORATE TRAINER 07/04/2017 1:10 PM CORPORATE TRAINER Narrative [facility] - 07/04/2017 2:51 PM CORPORATE TRAINER us Alissa Fuentes MD LAB BLOOD ORDERABLES Final Resul t Performing Organization Address [facility] de Phone Number [facility] [address] [place] [address] * (ABNORMAL) Rheumatoid factor (07/04/2017 1:10 PM CORPORATE TRAINER) [facility] Rheumatoid factor, quant 873(H) 0 - 19 IUnits/mL [facility] Blood specimen (specimen) 07/04/2017 1:10 PM CORPORATE TRAINER 07/04/2017 3:47 PM CORPORATE TRAINER Narrative [facility] - 07/05/2017 8:38 AM CORPORATE TRAINER us Alissa Fuentes MD LAB BLOOD ORDERABLES Final Resul t Performing Organization Address [facility] Co de Phone Number [facility] [address] [place] [address] * Hepatitis C antibody (07/04/2017 1:10 PM CORPORATE TRAINER) Pathologist [facility] [place] Hep C Ab Negative Negative [facility] Blood specimen (specimen) 07/04/2017 1:10 PM CORPORATE TRAINER 07/04/2017 3:47 PM CORPORATE TRAINER Narrative [facility] - 07/04/2017 5:32 PM CORPORATE TRAINER us Ailssa Fuentes MD LAB MICROBIOLOGY - GENERAL ORDER DIEGO Final Result Performing Organization Address [facility] Co de Phone Number [facility] [address] [place] [address] * Hepatitis B surface antigen (07/04/2017 1:10 PM CORPORATE TRAINER) Pathologist [facility] [place] HepBsAg Negative Negative [facility] Blood specimen (specimen) 07/04/2017 1:10 PM CORPORATE TRAINER 07/04/2017 3:47 PM CORPORATE TRAINER Narrative [facility] - 07/04/2017 5:32 PM CORPORATE TRAINER us Alissa Fuentes MD LAB MICROBIOLOGY - GENERAL ORDER DIEGO Final Result Performing Organization Address [facility] de Phone Number [facility] [address] [place] [address] * Cyclic citrul peptide antibody, IgG (07/04/2017 1:10 PM CORPORATE TRAINER) Pathologist [facility] [place] CCP Ab <0.5 <=2.9 units/mL [facility] Comment: Interpretive data Negative: <3 units/mL Positive: > or equal to 3 units/mL Current interpretive data was last revised on 2016. Testing performed by: [facility], [address] [place]., [address] Blood specimen (specimen) 07/04/2017 1:10 PM CORPORATE TRAINER 07/05/2017 8:48 AM CORPORATE TRAINER Narrative [facility] - 07/05/2017 12:01 PM CORPORATE TRAINER us Alissa Fuentes MD LAB BLOOD ORDERABLES Final Resul t Performing Organization Address [facility] Co de Phone Number [facility] [address] [place] [address] * CRP (acute phase) (07/04/2017 1:10 PM CORPORATE TRAINER) [facility] CRP 1.4 0.2 - 9.9 mg/L [facility] Blood specimen (specimen) 07/04/2017 1:10 PM CORPORATE TRAINER 07/04/2017 3:49 PM CORPORATE TRAINER Narrative [facility] - 07/04/2017 4:20 PM CORPORATE TRAINER us Alissa Fuentes MD LAB BLOOD ORDERABLES Final Resul t [facility] [address] [place] [address] * Comprehensive metabolic panel (07/04/2017 1:10 PM CORPORATE TRAINER) Sodium 139 135 - 145 mmol/L [facility] Comment:[facility] : [facility] [address], [place] [address] Potassium, pl 3.8 3.5 - 5.1 mmol/L [facility] Comment:Testing performed by : [facility] [address], [place] [address] CO2 28 22 - 32 mmol/L [facility] Comment:Testing performed by : [facility] [address], [place] [address] BUN 17 8 - 24 mg/dL [facility] Comment:Testing performed by : [facility] [address], [place] [address] Glucose 99 70 - 199 mg/dL [facility] Comment: Interpretive Data Fasting glucose >/= [...] was last revised 2017. Testing performed [facility]: [facility] [address], [place] [address] Creatinine 1.13 0.70 - 1.40 mg/dL [facility] Comment:Testing performed by : [facility] [address], [place] [address] Calcium 9.3 8.4 - 10.5 mg/dL [facility] Comment:Testing performed by : [facility] [address], [place] [address] Chloride 103 100 - 114 mmol/L [facility] Comment:Testing performed by : [facility], [facility] [place] [address] Albumin 4.4 3.2 - 4.8 g/dL [facility] Comment:Testing performed by : [facility] [address] [place] [address] AST 19 7 - 40 Units/L [facility] Comment:Testing performed by : [facility] [place] [address] ALT 20 5 - 50 Units/L [facility] Comment:Testing performed by : [facility] [place] [address] Alk phos 50 30 - 110 Units/L [facility] Comment:Testing performed by : [facility] [place] [address] Bilirubin, total 1.13 0.10 - 1.30 mg/dL [facility] Comment:Testing performed by : [facility] [place] [address] Protein, pl 7.0 6.0 - 8.3 g/dL [facility] Comment:Testing performed by : [facility] [place] [address] Anion gap 12 8 - 16 mmol/L [facility] Comment:Testing performed by : [facility] [place] [address] Blood specimen (specimen) 07/04/2017 1:10 PM CORPORATE TRAINER 07/04/2017 1:10 PM CORPORATE TRAINER Narrative [facility] - 07/04/2017 4:20 PM CORPORATE TRAINER us Alissa Fuentes MD LAB BLOOD ORDERABLES Edited Resu lt - Final [facility] [address] [place] [address] * (ABNORMAL) CBC without differential (07/04/2017 1:10 PM CORPORATE TRAINER) WBC 5.93 3.80 - 9.90 K/cumm [facility] Comment:Testing performed by : [facility] [place] [address] RBC 4.62 4.30 - 5.80 M/cumm [facility] Comment:Testing performed by : [facility], [facility] [place] [address] Hgb 14.8 13.0 - 17.5 g/dL [facility] Comment:Testing performed by : [facility], [place] [address] Hct 43.6 38.9 - 50.3 % [facility] Comment:Testing performed by : [facility] [address] [place], [place] [address] MCV 94.4 81.3 - 96.4 fL [facility] Comment:Testing performed by : [facility] [address] [place], [place] [address] MCH 32.0 27.1 - 33.3 pg [facility] Comment:Testing performed by : [facility] [address] [place] [address] MCHC 33.9 32.3 - 35.7 g/dL [facility] Comment:Testing performed by : [facility] [address] [place] [address] RDW CV 14.2 11.1 - 14.9 % [facility] Comment:Testing performed by : [facility] [address] [place], [place] [address] RDW SD 48.5(H) 35.7 - 48.1 fL [facility] Comment:Testing performed by : [facility] [address] [place] [address] NRBC 0.0 0.0 - 0.2 % [facility] Comment:Testing performed by : [facility] [address] [place] [address] NRBC abs 0.00 0.00 - 0.01 K/cumm [facility] Comment:Testing performed by : [facility] [address] [place] [address] Plt 144(L) 150 - 400 K/cumm [facility] Comment:Testing performed by : [facility] [address] [place] [address] MPV 10.1 9.1 - 12.3 fL [facility] Comment:Testing performed by : [facility] [address] [place] [address] Blood specimen (specimen) 07/04/2017 1:10 PM CORPORATE TRAINER 07/04/2017 1:10 PM CORPORATE TRAINER Narrative [facility] - 07/04/2017 1:43 PM CORPORATE TRAINER us Alissa Fuentes MD LAB BLOOD ORDERABLES Final Resul t Performing Organization Address City/[facility]/ZIP Co de Phone Number ANDRE YEUNG [address] [facility] [place] [address] * PATRICK screen (07/04/2017 1:10 PM CORPORATE TRAINER) PATRICK Negative Negative [facility] Blood specimen (specimen) 07/04/2017 1:10 PM CORPORATE TRAINER 07/04/2017 3:47 PM CORPORATE TRAINER Narrative [facility] - 07/08/2017 12:20 PM CORPORATE TRAINER us Alissa Fuentes MD LAB BLOOD ORDERABLES Final Resul t Performing Organization Address [facility] Co de Phone Number ANDRE YEUNG [address] [place] [address] documented in this encounter Visit Diagnoses Diagnosis 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
--- OUTSIDE RECORDS SUMMARY | 2024-06-14 23:35 | XMS_ITS | Encounter Summary ---
Author Organization [facility] Healthcare Address [address] [place] [address] Care Team Providers Care Sales And Service Specialist Name Role Phone Criss Blanco MD Unavailable Lashay Downs RN Unavailable Unavailab le Encounter Details Date Type Department Care Team (Late st Contact Info) Description 06/25/2017 9:00 AM TEST KITCHEN HOME ECONOMIST Ancillary Procedure [facility] [address] [place] [address] Clive Mackey MD 2 [facility] [address] [place] [address] Social History Tobacco Use Types Packs/Day Years Used Date Smoking Tobacco: Former Cigarettes 2 30 Smokeless Tobacco: Never Comments:Smoking History Pac ks/day: 2 Packs Alcohol Use Standard Drinks/Week Comments Yes 2 (1 standard drink = 0.6 oz pur e alcohol) Sex and Gender Information Value Date Recorded Sex Assigned at Not on file Legal Sex Male 12:56 AM TEST KITCHEN HOME 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 ??Please refer to the physician's procedure / OR operative note. us Clive Mackey MD IMG XR PROCEDURES Final Re sult [facility] documented in this encounter Visit Diagnoses Not on filedocumented in this encounter Care Teams Sales And Service Specialist Relationship Specialty [place] [address] [facility] [address] [place] [address] Rheumatology 02/21/17 Lashay Downs, RN Registered Nurse Pain Management 06/17/17 documented as of this encounter
--- OUTSIDE RECORDS SUMMARY | 2024-06-14 23:35 | XMS_ITS | Encounter Summary ---
Author Organization [facility] Healthcare Address [address] [place] [address] Care Team Providers Care Gre Instructor Name Role Phone Criss Blanco MD Unavailable Lashay Downs RN Unavailable Unavailab le Encounter Details Date Type Department Care Team (Late st Contact Info) Description 06/18/2017 9:10 AM MOTOR CARRIER INSPECTOR Ancillary Procedure [facility] [address] [place] [address] Clive Mackey MD 2 [facility] [address] [place] [address] Social History Tobacco Use Types Packs/Day Years Used Date Smoking Tobacco: Former Cigarettes 2 30 Smokeless Tobacco: Never Comments:Smoking History Pac ks/day: 2 Packs Alcohol Use Standard Drinks/Week Comments Yes 2 (1 standard drink = 0.6 oz pur e alcohol) Sex and Gender Information Value Date Recorded Sex Assigned at Not on file Legal Sex Male 12:56 AM MOTOR CARRIER INSPECTOR Gender Identity Not on file Sexual Orientation Not on file documented as of this encounter Plan of Treatment Not on file documented as of this encounter Procedures Procedure Name Priority Date/Time Associated Diagnosis Comments XR SPINE LUMBAR 2 OR 3 VIEWS IP Routine 06/18/2017 9:23 AM MOTOR CARRIER INSPECTOR documented in this encounter Results * XR Spine Lumbar 2 or 3 Views (06/18/2017 9:23 AM MOTOR CARRIER INSPECTOR) Narrative [facility] - 06/18/2017 9:24 AM MOTOR CARRIER INSPECTOR The images from this study are not interpreted by Radiology. ??Please refer to the physician's procedure / OR operative note. us Clive Mackey MD IMG XR PROCEDURES Final Re sult [facility] documented in this encounter Visit Diagnoses Not on filedocumented in this encounter Care Teams Gre Instructor Relationship Specialty [place] [address] [facility] [address] [place] [address] Rheumatology 02/21/17 Lashay Downs, RN Registered Nurse Pain Management 06/17/17 documented as of this encounter
--- OUTSIDE RECORDS SUMMARY | 2024-06-14 23:35 | XMS_ITS | Encounter Summary ---
Author Organization [facility] Medical Group Address [address] [place] [address] Care Team Providers Care 5Th Grade Teacher Name Role Phone Alberto Stanton Primary Care Provider Criss Robertson MD Unavailable Encounter Details Date Type Department Care Team (Late st Contact Info) Description 03/06/2017 Telephone [facility] [address] [place] [address] Alberto Stanton Social History Tobacco Use Types Packs/Day Years Used Date Smoking Tobacco: Heavy Smoker Comments:Smoking History Pac ks/day: 2 Packs Alcohol Use Standard Drinks/Week Comments No 0 (1 standard drink = 0.6 oz pur e alcohol) Sex and Gender Information Value Date Recorded Sex Assigned at Not on file Legal 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
--- OUTSIDE RECORDS SUMMARY | 2024-06-14 23:35 | XMS_ITS | Encounter Summary ---
Author Organization [facility] Healthcare Address [address] [place] [address] Care Team Providers Care Blast Furnace Checker Name Role Phone Criss Blanco MD Unavailable Lashay Downs RN Unavailable Unavailab le Encounter Details Date Type Department Care Team (Late st Contact Info) Description 06/25/2017 8:45 AM REVENUE SETTLEMENTS ADMINISTRATOR - 06/25/2017 9:00 AM [facility] Surgery [facility] [address] [place] [address] [address] [place] [address] Clive Mackey MD [address] [place] [address] [address] [place] [address] Injection - Epidural Steroid - Lumbar Surgery Details Date/Time Status Location OR Service Patient Class Case Class Case Type Trauma Case? 06/25/2017 8:45 AM Posted [facility] Pain Management Procedure Center [facility] PM 1 Pain Management Outpatient Elective [...] on file Legal Sex Male 12:56 AM REVENUE SETTLEMENTS ADMINISTRATOR Gender Identity Not on file Sexual Orientation Not on file documented as of this encounter Last Filed Vital Signs Vital Sign Reading Time Taken Comments Blood Pressure 108/76 06/25/2017 8:45 AM REVENUE SETTLEMENTS ADMINISTRATOR Pulse 77 06/25/2017 8:45 AM REVENUE SETTLEMENTS ADMINISTRATOR Temperature 36 ??C (96.8 ??F) 06/25/2017 8:45 AM REVENUE SETTLEMENTS ADMINISTRATOR Respiratory Rate - - Oxygen Saturation - [...] vital signs, patient will be discharged home. NUE SETTLEMENTS ADMINISTRATOR documented in this encounter Miscellaneous Notes * Perioperative Nursing Note - Lashay Downs RN - 06/25/2017 9:18 AM REVENUE SETTLEMENTS ADMINISTRATOR Discharge instructions reviewed with pt. Verbalized understanding. Hard copy given to pt. To returnin 2 weeks for #3 injection in series. NUE SETTLEMENTS ADMINISTRATOR documented in this encounter Plan of Treatment Not on file documented as of this encounter Procedures Procedure Name Priority Date/Time Associated Diagnosis Comments XR SPINE LUMBAR 2 OR 3 VIEWS IP Routine 06/25/2017 9:11 AM REVENUE SETTLEMENTS ADMINISTRATOR INJECTION - EPIDURAL STEROID - LUMBAR 06/25/2017 9:02 AM REVENUE SETTLEMENTS ADMINISTRATOR Case Notes RT L4-5 TF (2ND) documented in this encounter Results * XR Spine Lumbar 2 or 3 Views (06/25/2017 9:11 AM REVENUE SETTLEMENTS ADMINISTRATOR) Narrative [facility] - 06/25/2017 9:12 AM REVENUE SETTLEMENTS ADMINISTRATOR The images from this study are not [...] at 0901, Intra-Op Given 06/25/2017 9:10 AM REVENUE SETTLEMENTS ADMINISTRATOR 10 mg Back iohexol (OMNIPAQUE) 240 mg iodine/mL injection solution As needed, Starting on Sat06/25/17 at 0901, Intra-Op Given 06/25/2017 9:09 AM REVENUE SETTLEMENTS ADMINISTRATOR 2 mL Back lidocaine (XYLOCAINE) 10 mg/mL (1 %) injection As needed, Starting on Sat06/25/17 at 0901, Intra-Op, Indications: Administration of Local AnesthesiaIndications:Administratio n of Local Anesthesia Given 06/25/2017 9:07 AM REVENUE SETTLEMENTS ADMINISTRATOR 2 mL Back sodium chloride 0.9% 0.9 % solution As needed, Starting on Sat06/25/17 at 0902, Intra-Op Given 06/25/2017 9:08 AM REVENUE SETTLEMENTS ADMINISTRATOR 2 mL Back documented in this encounter Active and Recently Administered Medications Times are shown in REVENUE SETTLEMENTS ADMINISTRATOR. PRN Medication Order 06/23/2017 06/24/2017 06/25/2017 dexamethasone [...] Epidural) documented in this encounter Care Teams Blast Furnace Checker Relationship Specialty [place] [address] [facility] [address] [place] [address] Rheumatology 02/21/17 Lashay Downs, RN Registered Nurse Pain Management 06/17/17 documented as of this encounter
--- OUTSIDE RECORDS SUMMARY | 2024-06-14 23:35 | XMS_ITS | Encounter Summary ---
Author Organization [facility] Healthcare Address [address] [place] [address] Care Team Providers Care Wash Driller Helper Name Role Phone Criss Blanco MD Unavailable Reason for Visit * Reason Comments Urinary Frequency Encounter Details Date Type Department Care Team (Late st Contact Info) Description 06/09/2017 1:15 PM BUNDLER - 06/09/2017 5:04 PM BUNDLER Emergency [facility] Emergency Department [address] [place] [address] Uriah Mckinney MD [address] [place] [address] Acute cystitis with hematuria (Primary Dx); Fever, [...] on file Legal Sex Male 12:56 AM BUNDLER Gender Identity Not on file Sexual Orientation Not on file documented as of this encounter Last Filed Vital Signs Vital Sign Reading Time Taken Comments Blood Pressure 123/78 06/09/2017 2:52 PM BUNDLER Pulse 93 06/09/2017 2:52 PM BUNDLER Temperature 37.7 ??C (99.9 ??F) 06/09/2017 4:45 PM CS T Respiratory Rate 20 06/09/2017 2:52 PM BUNDLER Oxygen Saturation 97% 06/09/2017 4:45 PM BUNDLER Inhaled Oxygen Concentration - - Weight 102.1 kg (225 lb) 06/09/2017 1:27 PM BUNDLER Height 185.4 cm (6' 1 ) 06/09/2017 1:27 PM BUNDLER Body Mass Index 29.69 06/09/2017 1:27 PM BUNDLER documented in this encounter Discharge Instructions * Discharge Instructions* Precious Betancourt NP - 06/09/2017 5:47 PM BUNDLER Use over the counter Tylenol per manufacturers guidelines for relief of pain and fever. Stop Keflex and start Bactrim DS. LER * Attachments The following attachments cannot be sent through Care Everywhere. * Kidney Stone, Undescended (No Symptoms) (Greek) * Urinary Tract Infection in Men (AfterCare(R) Instructions(ER/ED)) (Greek) documented in this encounter Medications at Time [...] Comments: Had done at outpatiet clinic in [place] No date: HX OTHER MEDICAL Comment: bladder infection No date: HX OTHER MEDICAL Comment: kidney stone 1999: Mal[facility] Comment: prostate; presents to ED with [...] MEDICAL hemorroids; Comments: Had done at [facility] in [place] ??? HX OTHER MEDICAL bladder infection ??? HX OTHER MEDICAL kidney stone ??? Mal[facility]) 1998 prostate Past Surgical History: [...] current plan with Dr. Randolph. He recommends CT with IV contrast. Updated pt on lab results and plan. Pt verbalized understanding. [GV] 1500 Discussed case and current plan with Dr. Mckinney regarding pt. He recommends 1 gm Rocephin IV, lactate and blood cultures. [GV] ED Course User Index [GV] Precious Betancourt NP [facility] Acute cystitis with hematuria Fever, unspecified fever cause Renal stone Precious Betancourt NP 06/09/178 Cosigned by Sotero Randolph Jr., MD at 06/09/2017 7:19 PM BUNDLER LER LER Associated attestation - Sotero Randolph Jr., MD - 06/09/2017 7:19 PM BUNDLER ED Attestation Based on the medical record the care appears appropriate. * Radha Thompson RN - 06/09/2017 1:35 PM CST Patient with complaints of urinary frequency, chills and painful urination that started on Saturday, Patient called his PMD and was prescribed cephalexin and started taking it. Patient states he is notfeeling any better. LER documented in this encounter Plan of Treatment Not on file documented as of this encounter Procedures Procedure Name Priority Date/Time Associated Diagnosis Comments CT ABDOMEN PELVIS W CONTRAST ED 06/09/2017 5:03 PM BUNDLER URINALYSIS AND REFLEX TO MICROSCOPIC AND CULTURE STAT 06/09/2017 3:30 PM BUNDLER URINALYSIS, MICROSCOPIC ONLY STAT 06/09/2017 3:30 PM BUNDLER URINE CULTURE STAT 06/09/2017 3:30 PM BUNDLER BLOOD CULTURE STAT 06/09/2017 3:18 PM BUNDLER EGFR STAT 06/09/2017 3:15 PM BUNDLER DIFFERENTIAL AUTO STAT 06/09/2017 3:1 5 PM BUNDLER CBC WITH AUTO DIFFERENTIAL STAT 06/09/2017 3:15 PM BUNDLER LACTATE, WHOLE BLOOD Routine 06/09/2017 3:15 PM BUNDLER MANUAL DIFFERENTIAL STAT 06/09/2017 3 :15 PM BUNDLER BLOOD CULTURE STAT 06/09/2017 3:15 PM BUNDLER COMPREHENSIVE METABOLIC PANEL STAT 06/09/2017 3:15 PM BUNDLER DISCHARGE LABORATORY CUMULATIVE REPORT 06/09/2017 12:00 AM BUNDLER documented in this encounter Results * CT Abdomen Pelvis W Contrast (06/09/2017 5:03 PM BUNDLER) Anatomical Region Laterality Modality Body N/A Computed Tomogra phy Impressions 06/09/2017 5:27 PM BUNDLER 1. ??URINARY BLADDER WALL THICKENING AND INFLAMMATION SUGGESTIVE OF CYSTITIS. 2. ??MILD LEFT HYDRONEPHROSIS. 3. ??BILATERAL NONOBSTRUCTIVE INTRARENAL CALCULI. 4. ??SIGNIFICANT PROSTATE HYPERTROPHY. Electronically signed by: Brad Patricia M.D. Narrative 06/09/2017 5:[address] ABDOMEN PELVIS W CONTRAST HISTORY: Fever. [...] ult * Urine culture (06/09/2017 3:30 PM BUNDLER) Report Final Report: Insignifican t growth based on current clinical standards. ANDRE MORAES (BRE) Comment:Testing performed by : [facility], [address] [facility] [place] [address] Urine 06/09/2017 3:30 PM BUNDLER 06/09/2017 7:20 PM BUNDLER Narrative [facility] (BRE) - 06/10/2017 1:48 PM BUNDLER Uriah Mckinney MD LAB MICROBIOLOGY - GENE RAL ORDERABLES Final Result Performing Organization Address City/[facility]/ZIP Co de Phone Number [facility] (BRE) 1 [facility] Department [place] [address] * (ABNORMAL) Urinalysis, microscopic only (06/09/2017 3:30 PM BUNDLER) RBC, ur 5-10(A) 0 - 2 [facility] (BRE) WBC, ur >100(A) 0 - 2 [facility] (BRE) Bacteria, ur Negative Negative [facility] (BRE) Hyaline casts, ur 0-2 0 - 2 [facility] (BRE) Epithelial cells, ur 0-2 0 - 2 [facility] (BRE) Urine 06/09/2017 3:30 PM BUNDLER 06/09/2017 3:33 PM BUNDLER Narrative [facility] (BRE) - 06/09/2017 3:59 PM BUNDLER Uriah Mckinney MD LAB URINE ORDERABLES Fi nal Result Performing Organization Address City/[facility]/ZIP Co de Phone Number [facility] (BRE) 1 [facility] Department [place] [address] * (ABNORMAL) Urinalysis reflex to microscopic and culture (06/09/2017 3:30 PM BUNDLER) Color, ur Dark Yellow Yellow CERNER A [...] [facility] (BRE) Urine 06/09/2017 3:30 PM BUNDLER 06/09/2017 3:33 PM BUNDLER Narrative [facility] (BRE) - 06/09/2017 3:59 PM BUNDLER Uriah Mckinney MD LAB MICROBIOLOGY - GENE [facility] ORDERABLES Final Result [facility] (BRE) 1 [facility] Department [place] [address] * Blood culture Blood Peripheral (06/09/2017 3:18 PM BUNDLER) Report Final Report: No growth [facility] (BRE) Comment:Testing performed by : [facility], [facility], [place]., [address] Blood specimen (specimen) (Peripheral) 06/09/2017 3:18 PM BUNDLER 06/09/2017 7:51 PM BUNDLER Narrative [facility] (BRE) - 06/15/2017 7:00 AM BUNDLER From a different site than #1. Draw [...] susceptibly testing, if reported, [place] [address] 5. For blood cultures with gram-positive cocci, a rapid molecular test for organism identification may be performed using the [employer] Nanosphere Gram Positive Blood Culture Assay. The Nanosphere assay detects microbial DNA in positive blood culture broth via hybridization of target DNA to capture oligonucleotides on a microarray. This assay has been cleared by the [place] Food and Drug Administration and its performance characteristics have been verified by the [facility]. Interpretive data was last revised on October 15, 2016. Precious Betancourt NP LAB MICROBIOLOGY - GENERAL ORDERABLES Final Result ANDRE MORAES (BRE) 1 [facility] Department [place] [address] * (ABNORMAL) Manual Differential (06/09/2017 3:15 PM BUNDLER) Pathologist [facility] Platelet estimate Automated Count Confirmed ANDRE MORAES (BRE) Giant platelets Present(A) ANDRE MORAES (BRE) RBC morphology Consistent with RBC Indicies ANDRE MORAES (BRE) Blood specimen (specimen) 06/09/2017 3:15 PM BUNDLER 06/09/2017 3:29 PM BUNDLER Narrative ANDRE MORAES (BRE) - 06/09/2017 4:28 PM BUNDLER Precious Betancourt NP LAB BLOOD ORDERABLES Final Result Performing Organization Address City/[facility]/ZIP Co de Phone Number ANDRE MORAES (BRE) 1 [facility] Department [place] [address] * eGFR (06/09/2017 3:15 PM BUNDLER) eGFR >60 mL/min/1.7 3 m2 ANDRE MORAES (NARKA) Comment: Interpretive Data Reference Interval Normal ?>/= 90 mL/min/1.73m2 Mildly decreased* ? 60 - 89 mL/min/1.73m2 Mildly to moderately decreased ?45 - 59 mL/min/1.73m2 Moderately to severely decreased ??30 - 44 mL/min/1.73m2 Severely decreased ?15 - 29 mL/min/1.73m2 Kidney Failure ?< 15 ??mL/min/1.73m2 *Relative to young adult level If -Malagasy multiply value by 1.16. Estimated glomerular filtration [...] 2015. Blood specimen (specimen) 06/09/2017 3:15 PM BUNDLER 06/09/2017 3:29 PM BUNDLER Narrative ANDRE MORAES (BRE) - 06/09/2017 3:50 PM BUNDLER Precious Betancourt NP LAB BLOOD ORDERABLES Final Result ANDRE MORAES (BRE) 1 [facility] Department [place] [address] * (ABNORMAL) Differential, auto (06/09/2017 3:15 PM BUNDLER) Neutrophil pct 91.5(H) 44.0 - 80.0 % [...] (BRE) Blood specimen (specimen) 06/09/2017 3:15 PM BUNDLER 06/09/2017 3:29 PM BUNDLER Narrative [facility] (BRE) - 06/09/2017 4:28 PM BUNDLER us Precious Betancourt NP LAB BLOOD ORDERABLES Final Result [facility] (BRE) 1 [facility] Department of Laboratories [place], [place] [id number] * Lactate, whole blood (06/09/2017 3:15 PM BUNDLER) Lactate, bld 1.7 0.5 - 2.2 mmol/L [facility] (BRE) Blood specimen (specimen) 06/09/2017 3:15 PM BUNDLER 06/09/2017 3:29 PM BUNDLER Narrative ANDRE MORAES (BRE) - 06/09/2017 3:32 PM BUNDLER Precious Betancourt NP LAB BLOOD ORDERABLES Final Result ANDRE MORAES (BRE) 1 [facility] Department [place] [address] * Blood culture Blood Peripheral (06/09/2017 3:15 PM BUNDLER) Report Final Report: No growth ANDRE MORAES (BRE) Comment:Testing performed by : [place]., [address] Blood specimen (specimen) (Peripheral) 06/09/2017 3:15 PM BUNDLER 06/09/2017 7:51 PM BUNDLER Narrative ANDRE MORAES (BRE) - 06/15/2017 7:00 AM BUNDLER Draw Blood cultures before administration of Antibiotics [...] susceptibly testing, if reported, [place] [address] 5. For blood cultures with gram-positive cocci, a rapid molecular test for organism identification may be performed using the [employer] Nanosphere Gram Positive Blood Culture Assay. The Nanosphere assay detects microbial DNA in positive blood culture broth via hybridization of target DNA to capture oligonucleotides on a microarray. This assay has been cleared by the [place] Food and Drug Administration and its performance characteristics have been verified by the [facility]. Interpretive data was last revised on October 15, 2016. Precious Betancourt NP LAB MICROBIOLOGY - GENERAL ORDERABLES Final Result [facility] (BRE) 1 [facility] Department [place] [address] * (ABNORMAL) Comprehensive metabolic panel (06/09/2017 3:15 PM BUNDLER) Sodium 135 135 - 145 mmol/L CERNER [...] (BRE) Blood specimen (specimen) 06/09/2017 3:15 PM BUNDLER 06/09/2017 3:29 PM BUNDLER Narrative [facility] (BRE) - 06/09/2017 3:50 PM BUNDLER us Precious Betancourt NP LAB BLOOD ORDERABLES Final Result [facility] (BRE) 1 [facility] Department [place] [address] * (ABNORMAL) CBC with auto differential (06/09/2017 3:15 PM BUNDLER) WBC 11.65(H) 3.80 - 9.80 K/cumm CERNER [...] 0.00 0.00 - 0.00 K/cumm ANDRE MORAES (NARKA) Blood specimen (specimen) 06/09/2017 3:15 PM BUNDLER 06/09/2017 3:29 PM BUNDLER Narrative ANDRE [facility] (BRE) - 06/09/2017 4:27 PM BUNDLER Precious Betancourt NP LAB BLOOD ORDERABLES Final Result ANDRE [facility] (NARKA) 1 [facility] Department [place] [address] * DISCHARGE LABORATORY CUMULATIVE REPORT (06/09/2017 12:00 AM BUNDLER) Narrative 06/09/2017 12:00 AM BUNDLER Ordered by an unspecified provider. Historical Provider [...] For 1 dose Given 06/09/2017 4:54 PM BUNDLER 1,000 mg cefTRIAXone (ROCEPHIN) IV syringe 1,000 mg 1,000 mg, intravenous, Administer over 4 Minutes, Once, On 06/09/17 at 1500, For 1 dose, Indications: Urinary Tract/Genitourinary InfectionIndications:Urinary Tract/Genitourinary Infection Given 06/09/2017 4:48 PM BUNDLER 1,000 mg ibuprofen (ADVIL,MOTRIN) tablet 800 mg 800 mg, oral, Once, On 06/09/17 at 1500, For 1 dose Given 06/09/2017 3:38 PM BUNDLER 800 mg ioversol intravenous syringe 100 mL 100 mL, intravenous, Once in imaging, per order, Starting on 06/09/17 at 1704, For 1 dose Given 06/09/2017 5:09 PM BUNDLER 100 mL documented in this encounter Discontinued [...] Recently Administered Medications Times are shown in BUNDLER. Scheduled Medication Order 06/07/2017 06/08/2017 06/09/2017 acetaminophen [...] 06/09/2017 documented in this encounter Care Teams Wash Driller Helper Relationship Specialty [place] [address] [facility] [address] [place] [address] Rheumatology 02/21/17 documented as of this encounter
--- OUTSIDE RECORDS SUMMARY | 2024-06-14 23:35 | XMS_ITS | Encounter Summary ---
Author Organization [facility] Healthcare Address [address] [place] [address] Care Team Providers Care Pulmonary Disease Specialist Name Role Phone Criss Blanco MD Unavailable Lashay Downs RN Unavailable Unavailab le Encounter Details Date Type Department Care Team (Latest Contact Info) Description 06/18/2017 8:29 AM COCOA BEAN CLEANER - 06/18/2017 9:26 AM COCOA BEAN CLEANER Hospital Encounter [facility] [address] [place] [address] [place] [address] Clive Mackey MD 2 [facility] [address] [place] [address] Discharge Disposition: Discharge to home or self [...] on file Legal Sex Male 12:56 AM COCOA BEAN CLEANER Gender Identity Not on file Sexual Orientation Not on file documented as of this encounter Last Filed Vital Signs Vital Sign Reading Time Taken Comments Blood Pressure 132/77 06/18/2017 9:01 AM COCOA BEAN CLEANER Pulse 75 06/18/2017 9:01 AM COCOA BEAN CLEANER Temperature 36.5 ??C (97.7 ??F) 06/18/2017 9:01 AM CS T Respiratory Rate 16 06/18/2017 9:01 AM COCOA BEAN CLEANER Oxygen Saturation - - Inhaled Oxygen Concentration [...] vital signs they will be discharged home. A BEAN CLEANER documented in this encounter Miscellaneous Notes * Perioperative Nursing Note - Lashay Downs RN - 06/18/2017 9:20 AM COCOA BEAN CLEANER Discharge instructions reviewed with pt. Verbalized understanding. To return in 1 week for #2 injection of series. A BEAN CLEANER * Perioperative Nursing Note - Lashay Downs RN - 06/18/2017 9:02 AM COCOA BEAN CLEANER Seen by Dr. Mackey pre procedure. A BEAN CLEANER documented in this encounter Plan of Treatment Not on file documented as of this encounter Procedures Procedure Name Priority Date/Time Associated Diagnosis Comments XR SPINE LUMBAR 2 OR 3 VIEWS IP Routine 06/18/2017 9:23 AM COCOA BEAN CLEANER INJECTION TRANSFORAMINAL LUMBO/SACRAL 1 LEVEL 06/18/2017 9:11 AM COCOA BEAN CLEANER Case Notes RT L4-5 TF (1ST) documented in this encounter Results * XR Spine Lumbar 2 or 3 Views (06/18/2017 9:23 AM COCOA BEAN CLEANER) Narrative [facility] - 06/18/2017 9:24 AM COCOA BEAN CLEANER The images from this study are not interpreted by Radiology. ??Please refer to the physician's procedure / OR operative note. us Clive Mackey MD IMG XR PROCEDURES Final Re sult [facility] documented in this encounter Visit Diagnoses Not on filedocumented in this encounter Active and Recently Administered Medications Times are shown in COCOA BEAN CLEANER. PRN Medication Order 06/16/2017 06/17/2017 06/18/2017 dexamethasone [...] 06/18 documented in this encounter Care Teams Pulmonary Disease Specialist Relationship Specialty [place] [address] [facility] [address] [place] [address] Rheumatology 02/21/17 Lashay Downs, RN Registered Nurse Pain Management 06/17/17 documented as of this encounter
--- OUTSIDE RECORDS SUMMARY | 2024-06-14 23:35 | XMS_ITS | Encounter Summary ---
Author Organization [facility] Healthcare Address [address] [place] [address] Care Team Providers Care Oil And Gas Recruiter Name Role Phone Criss Blanco MD [...] Expiration Date V isits Requested Visits Authorized [id number] Closed Specialty Services Required 05/02/2017 10/29/2017 1 1 Encounter Details Date Type Department Care Team (Late st Contact Info) Description 06/17/2017 11:30 AM RESIDENTIAL DOOR INSTALLER Office Visit [facility] 2 [facility] [address], [address] [place] [address] Viraj Romeo PA [address] [place] [address] Clive Mackey MD [address] [place] [address] [address] [place] [address] Spinal stenosis of lumbar region, unspecified whether [...] on file Legal Sex Male 12:56 AM RESIDENTIAL DOOR INSTALLER Gender Identity Not on file Sexual Orientation Not on file documented as of this encounter Last Filed Vital Signs Vital Sign Reading Time Taken Comments Blood Pressure 140/80 06/17/2017 10:51 AM RESIDENTIAL DOOR INSTALLER Pulse 83 06/17/2017 10:51 AM RESIDENTIAL DOOR INSTALLER Temperature - - Respiratory Rate - - Oxygen Saturation - - Inhaled Oxygen Concentration - - Weight 99.8 kg (220 lb) 06/17/2017 10:51 AM RESIDENTIAL DOOR INSTALLER Height 185.4 cm (6' 1 ) 06/17/2017 10:51 AM RESIDENTIAL DOOR INSTALLER Body Mass Index 29.03 06/17/2017 10:51 AM RESIDENTIAL DOOR INSTALLER documented in this encounter Discharge Disposition Disposition [...] Sxs Plan: Rt L4-5 TF inj series DENTIAL DOOR INSTALLER * Lashay Downs RN - 06/17/2017 11:30 AM CST Initial intake assessment completed. Seen by . To return JUAQUIN to begin TLESI series. Pre-procedure explanation given. DENTIAL DOOR INSTALLER documented in this encounter Plan of Treatment [...] 8 documented in this encounter Care Teams Oil And Gas Recruiter Relationship Specialty [place] [address] [facility] [address] [place] [address] Rheumatology 02/21/17 Lashay Downs, RN Registered Nurse Pain Management 06/17/17 documented as of this encounter
--- OUTSIDE RECORDS SUMMARY | 2024-06-14 23:35 | XMS_ITS | Encounter Summary ---
Author Organization 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); terminal carman use of drug Discharge Disposition: Discharge to [...] on file Legal Sex Male 12:56 AM SERGING MACHINE OPERATOR Gender Identity Not on file Sexual Orientation Not on file documented as of this encounter Discharge Disposition Disposition Code Departure Means Destination Discharge to home or self care documented in this encounter Plan of Treatment Not on file documented as of this encounter Procedures Procedure Name Priority Date/Time Associated Diagnosis Comments EGFR Routine 07/04/2017 1:10 PM SERGING MACHINE OPERATOR terminal carman use of drug SJOGREN'S SYNDROME A/B ANTIBODIES Routine 07/04/2017 1:10 PM SERGING MACHINE OPERATOR 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) HEPATITIS C ANTIBODY Routine 07/04/2017 1:10 PM SERGING MACHINE OPERATOR 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) CYCLIC CITRUL PEPTIDE ANTIBODY, IGG Routine 07/04/2017 1:10 PM SERGING MACHINE OPERATOR 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) HEPATITIS B SURFACE ANTIGEN Routine 07/04/2017 1:10 PM SERGING MACHINE OPERATOR 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) ERYTHROCYTE SEDIMENTATION RATE Routine 07/04/2017 1:10 PM SERGING MACHINE OPERATOR 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) CBC WITHOUT DIFFERENTIAL Routine 07/04/2017 1:10 PM SERGING MACHINE OPERATOR jail use of drug RHEUMATOID FACTOR Routine 07/04/2017 1:1 0 PM SERGING MACHINE OPERATOR 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) CRP (ACUTE PHASE) Routine 07/04/2017 1:1 0 PM SERGING MACHINE OPERATOR 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) PATRICK SCREEN Routine 07/04/2017 1:10 PM SERGING MACHINE OPERATOR 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) COMPREHENSIVE METABOLIC PANEL Routine 07/04/2017 1:10 PM SERGING MACHINE OPERATOR jail use of drug DISCHARGE LABORATORY CUMULATIVE REPORT 07/04/2017 12:00 AM SERGING MACHINE OPERATOR documented in this encounter Results * eGFR (07/04/2017 1:10 PM SERGING MACHINE OPERATOR) [facility] eGFR 64 mL/min/1.7 3 m2 ANDRE YEUNG Comment: Interpretive Data Reference Interval Normal ?>/= 90 mL/min/1.73m2 Mildly decreased* ? 60 - 89 mL/min/1.73m2 Mildly to moderately decreased ?45 - 59 mL/min/1.73m2 Moderately to severely decreased ??30 - 44 mL/min/1.73m2 Severely decreased ?15 - 29 mL/min/1.73m2 Kidney Failure ?< 15 ??mL/min/1.73m2 *Relative to young adult level If -Kyrgyz multiply value by 1.16. Estimated glomerular filtration [...] was last reviewed 2015. Testing performed by: [facility], [address] [place] [address] [place] [address] Blood specimen (specimen) 07/04/2017 1:10 PM SERGING MACHINE OPERATOR 07/04/2017 1:10 PM SERGING MACHINE OPERATOR Narrative ANDRE - 07/04/2017 2:25 PM SERGING MACHINE OPERATOR us Alissa Fuentes MD LAB BLOOD ORDERABLES Final Resul t [facility] [address] Department [place] [address] * Sjogren's syndrome A/B antibodies (07/04/2017 1:10 PM SERGING MACHINE OPERATOR) SS-A/Ro Ab, IgG <0.2 <1.0 (Negative) Units ANDRE SS-B/La Ab, IgG <0.2 <1.0 (Negative) Units ANDRE YEUNG Comment: Test Performed by: [address] [address] Blood specimen (specimen) 07/04/2017 1:10 PM SERGING MACHINE OPERATOR 07/04/2017 3:43 PM SERGING MACHINE OPERATOR Narrative ANDRE - 07/06/2017 2:03 PM SERGING MACHINE OPERATOR us Alissa Fuentes MD LAB BLOOD ORDERABLES Final Resul t Performing Organization Address [facility] de Phone Number EMANUELSTEFANIA YEUNG [address] [facility] [place] [address] * Erythrocyte sedimentation rate (07/04/2017 1:10 PM SERGING MACHINE OPERATOR) Erythrocyte sedimentation rate 4 0 - 20 mm/H [facility] Comment:Testing performed by : [facility], [place] [address] Blood specimen (specimen) 07/04/2017 1:10 PM SERGING MACHINE OPERATOR 07/04/2017 1:10 PM SERGING MACHINE OPERATOR Narrative ANDRE - 07/04/2017 2:51 PM SERGING MACHINE OPERATOR us Alissa Fuentes MD LAB BLOOD ORDERABLES Final Resul t Performing Organization Address [facility] de Phone Number EMANUELSTEFANIA YEUNG [address] [place] [address] * (ABNORMAL) Rheumatoid factor (07/04/2017 1:10 PM SERGING MACHINE OPERATOR) Rheumatoid factor, quant 873(H) 0 - 19 IUnits/mL ANDRE Blood specimen (specimen) 07/04/2017 1:10 PM SERGING MACHINE OPERATOR 07/04/2017 3:47 PM SERGING MACHINE OPERATOR Narrative ANDRE - 07/05/2017 8:38 AM SERGING MACHINE OPERATOR Result Jessa Fuentes MD LAB BLOOD ORDERABLES Final Resul t Performing Organization Address [facility] de Phone Number EMANUELSTEFANIA [address] [facility] [place] [address] * Hepatitis C antibody (07/04/2017 1:10 PM SERGING MACHINE OPERATOR) Pathologist [facility] Hep C Ab Negative Negative [facility] Blood specimen (specimen) 07/04/2017 1:10 PM SERGING MACHINE OPERATOR 07/04/2017 3:47 PM SERGING MACHINE OPERATOR Narrative [facility] - 07/04/2017 5:32 PM SERGING MACHINE OPERATOR us Alissa Fuentes MD LAB MICROBIOLOGY - GENERAL ORDER DIEGO Final Result Performing Organization Address [facility] Co de Phone Number [facility] [address] [place] [address] * Hepatitis B surface antigen (07/04/2017 1:10 PM SERGING MACHINE OPERATOR) [facility] HepBsAg Negative Negative [facility] Blood specimen (specimen) 07/04/2017 1:10 PM SERGING MACHINE OPERATOR 07/04/2017 3:47 PM SERGING MACHINE OPERATOR Narrative [facility] - 07/04/2017 5:32 PM SERGING MACHINE OPERATOR Result Jessa Fuentes MD LAB MICROBIOLOGY - GENERAL ORDER DIEGO Final Result Performing Organization Address [facility] de Phone Number [facility] [address] [place] [address] * Cyclic citrul peptide antibody, IgG (07/04/2017 1:10 PM SERGING MACHINE OPERATOR) [facility] CCP Ab <0.5 <=2.9 units/mL ANDRE Comment: Interpretive data Negative: <3 units/mL Positive: > or equal to 3 units/mL Current interpretive data was last revised on 2016. Testing performed by: [facility], [address] [place]., [address] Blood specimen (specimen) 07/04/2017 1:10 PM SERGING MACHINE OPERATOR 07/05/2017 8:48 AM SERGING MACHINE OPERATOR Narrative [facility] - 07/05/2017 12:01 PM SERGING MACHINE OPERATOR Result Jessa Fuentes MD LAB BLOOD ORDERABLES Final Resul t Performing Organization Address [facility] Co de Phone Number [facility] [address] [place] [address] * CRP (acute phase) (07/04/2017 1:10 PM SERGING MACHINE OPERATOR) CRP 1.4 0.2 - 9.9 mg/L [facility] Blood specimen (specimen) 07/04/2017 1:10 PM SERGING MACHINE OPERATOR 07/04/2017 3:49 PM SERGING MACHINE OPERATOR Narrative [facility] - 07/04/2017 4:20 PM SERGING MACHINE OPERATOR Alissa Fuentes MD LAB BLOOD ORDERABLES Final Resul t [facility] [address] Department [place] [address] * Comprehensive metabolic panel (07/04/2017 1:10 PM SERGING MACHINE OPERATOR) Sodium 139 135 - 145 mmol/L [facility] Comment:Testing performed [facility] : [facility] [address], [place] [address] Potassium, pl 3.8 3.5 - 5.1 mmol/L [facility] Comment:Testing performed by : [facility], [place] [address] CO2 28 22 - 32 mmol/L [facility] Comment:Testing performed by : [facility], [place] [address] BUN 17 8 - 24 mg/dL [facility] Comment:Testing performed by : [facility], [place] [address] Glucose 99 70 - 199 mg/dL [facility] Comment: Interpretive Data Fasting glucose >/= [...] was last revised 2017. Testing performed [facility]: [facility] [address], [place] [address] Creatinine 1.13 0.70 - 1.40 mg/dL [facility] Comment:Testing performed by : [facility], [place] [address] Calcium 9.3 8.4 - 10.5 mg/dL [facility] Comment:Testing performed by : [facility] [place] [address] Chloride 103 100 - 114 mmol/L [facility] Comment:Testing performed by : [facility] [place] [address] Albumin 4.4 3.2 - 4.8 g/dL [facility] Comment:Testing performed by : [facility] [place] [address] AST 19 7 - 40 Units/L [facility] Comment:Testing performed by : [facility] [place] [address] ALT 20 5 - 50 Units/L [facility] Comment:Testing performed by : [facility] [address], [place] [address] Alk phos 50 30 - 110 Units/L [facility] Comment:Testing performed by : [facility] [place] [address] Bilirubin, total 1.13 0.10 - 1.30 mg/dL [facility] Comment:Testing performed by : [facility] [place] [address] Protein, pl 7.0 6.0 - 8.3 g/dL [facility] Comment:Testing performed by : [facility] [place] [address] Anion gap 12 8 - 16 mmol/L [facility] Comment:Testing performed by : [facility] [place] [place] [address] Blood specimen (specimen) 07/04/2017 1:10 PM SERGING MACHINE OPERATOR 07/04/2017 1:10 PM SERGING MACHINE OPERATOR Narrative ANDRE - 07/04/2017 4:20 PM SERGING MACHINE OPERATOR us Alissa Fuentes MD LAB BLOOD ORDERABLES Edited Resu lt - Final ANDRE [address] Department [place] [address] * (ABNORMAL) CBC without differential (07/04/2017 1:10 PM SERGING MACHINE OPERATOR) WBC 5.93 3.80 - 9.90 K/cumm [facility] Comment:Testing performed by : [facility] [address] [place], [place] [address] RBC 4.62 4.30 - 5.80 M/cumm [facility] Comment:Testing performed by : [facility], [facility] [address] [place], [place] [address] Hgb 14.8 13.0 - 17.5 g/dL [facility] Comment:Testing performed by : [facility] [address] [place], [place] [address] Hct 43.6 38.9 - 50.3 % [facility] Comment:Testing performed by : [facility], [facility] [address] [place], [place] [address] MCV 94.4 81.3 - 96.4 fL [facility] Comment:Testing performed by : [facility] [address] [place], [place] [address] MCH 32.0 27.1 - 33.3 pg [facility] Comment:Testing performed by : [facility] [address] [place], [place] [address] MCHC 33.9 32.3 - 35.7 g/dL [facility] Comment:Testing performed by : [place] [address] [place] [address] RDW CV 14.2 11.1 - 14.9 % [facility] Comment:Testing performed by : [place] [address] [address] [place], [place] [address] RDW SD 48.5(H) 35.7 - 48.1 fL [facility] Comment:Testing performed by : [facility] [address] [place], [place] [address] NRBC 0.0 0.0 - 0.2 % [facility] Comment:Testing performed by : [place] [address] [place] [address] NRBC abs 0.00 0.00 - 0.01 K/cumm [facility] Comment:Testing performed by : [place] [address] [place] [address] Plt 144(L) 150 - 400 K/cumm [facility] Comment:Testing performed by : [facility] [address] [place], [place] [address] MPV 10.1 9.1 - 12.3 fL [facility] Comment:Testing performed by : [facility] [place] [address] Blood specimen (specimen) 07/04/2017 1:10 PM SERGING MACHINE OPERATOR 07/04/2017 1:10 PM SERGING MACHINE OPERATOR Narrative [facility] - 07/04/2017 1:43 PM SERGING MACHINE OPERATOR Alissa Fuentes MD LAB BLOOD ORDERABLES Final Resul t Performing Organization Address City/[facility]/ZIP Co de Phone Number ANDRE [address] [address] [place] [address] * PATRICK screen (07/04/2017 1:10 PM SERGING MACHINE OPERATOR) PATRICK Negative Negative [facility] Blood specimen (specimen) 07/04/2017 1:10 PM SERGING MACHINE OPERATOR 07/04/2017 3:47 PM SERGING MACHINE OPERATOR Narrative [facility] - 07/08/2017 12:20 PM SERGING MACHINE OPERATOR Alissa Fuentes MD LAB BLOOD ORDERABLES Final Resul t Performing Organization Address [facility] de Phone Number [facility] [address] [address] [place] [address] * DISCHARGE LABORATORY CUMULATIVE REPORT (07/04/2017 12:00 AM SERGING MACHINE OPERATOR) Narrative 07/04/2017 12:00 AM SERGING MACHINE OPERATOR Ordered by an unspecified provider. Result [facility] Provider LAB BLOOD ORDERABLES Mariaa l Result documented in this encounter Visit Diagnoses Diagnosis 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) (HCC) terminal carman use of drug documented in this encounter Care Teams Lunch Cook Relationship Specialty [place] [address] [facility] [address] [place] [address] Rheumatology 02/21/17 Lashay Downs, RN Registered Nurse Pain Management 06/17/17 documented as of this encounter
--- OUTSIDE RECORDS SUMMARY | 2024-06-14 23:35 | XMS_ITS | Encounter Summary ---
Author Organization [facility] Healthcare Address [address] [place] [address] Care Team Providers Care Cheese Cook Name Role Phone Criss Blanco MD Unavailable Encounter Details Date Type Department Care Team (Late st Contact Info) Description 05/02/2017 1:15 PM TRANSIT SURVEY WORKER - 05/02/2017 11:59 PM TRANSIT SURVEY WORKER Hospital Encounter [facility] INTERIM Ariel Wiggins MD [address] [place] [address] [address] [facility] [address] [place] [address] Fawn Romeo, ZOILA [address] [place] [address] Discharge Disposition: Discharge to home or self care Social History Tobacco Use Types Packs/Day Years Used Date Smoking Tobacco: Heavy Smoker Comments:Smoking History Pac ks/day: 2 Packs Alcohol Use Standard Drinks/Week Comments No 0 (1 standard drink = 0.6 oz pur e alcohol) Sex and Gender Information Value Date Recorded Sex Assigned at Not on file Legal Sex Male 12:56 AM TRANSIT SURVEY WORKER Gender Identity Not on file Sexual [...] LATERAL 2 VIEWS Routine 05/02/2017 7:51 PM TRANSIT SURVEY WORKER documented in this encounter Results * XR Chest Pa Lateral 2 Views (05/02/2017 7:51 PM TRANSIT SURVEY WORKER) Anatomical Region Laterality Modality Body, Chest N/A Radiographic Corin ging 05/02/2017 7:51 PM TRANSIT SURVEY WORKER Narrative 05/03/2017 6:53 AM TRANSIT SURVEY WORKER XR Chest 2 Views ?[id number] ??Acc#: ??[id number] DATE OF EXAM: ??May 02 2017 ?? XR Chest 2 Views ?[id number] HISTORY: Cough for one week. ??Previous smoker.. [...] JACKSON ??on: ??Dec ??2016 12:50A Ordering DR: AFWN ROMEO Attending DR: FAWN ROMEO Attending: ??FAWN ROMEO Requesting: ??FAWN ROMEO Requesting Fax: ??[phone] Attending Fax: ??[phone] Attending ID: ??[id number] Requesting ID: ??[id number] Report To 1 ID: ??[id number] Report To 1 Name: ??FAWN ROMEO Report To 1 FAX: ??[phone] NextGen Order #: ?? Procedure Note Miscellaneous, Not In File - 05/03/2017 XR Chest 2 Views [id number] Acc#: [id number] DATE OF EXAM: May 02 2017 XR Chest 2 Views 25012 HISTORY: Cough for one week. Previous smoker.. [...] Requesting: FAWN ROMEO Requesting Attending Attending ID: [id number] Requesting ID: [id number] Report To 1 ID: [id number] Report To 1 Name: FAWN ROMEO Report To 1 FAX: [phone] NextGen Order #: us Fawn [facility] XR PROCEDURES Final Resul t documented in this encounter Visit Diagnoses Not on filedocumented in this encounter Care Teams Cheese Cook Relationship Specialty [place] [address] [facility] [address] [place] [address] Rheumatology 02/21/17 documented as of this encounter
--- OUTSIDE RECORDS SUMMARY | 2024-06-14 23:35 | XMS_ITS | Encounter Summary ---
Author Organization [facility] Healthcare Address [address] [place] [address] Care Team Providers Care Projection Welding Machine Operator Name Role Phone Alberto Stanton Primary Care Provider Unavailabl e Encounter Details Date Type Department Care Team (Late st Contact Info) Description 11/29/2016 7:27 AM CDT - 11/29/2016 11:59 PM CDT Hospital Encounter [facility] OP INTERIM Alexia Caballero MD [address] [facility] [address] [place] [address] [place] [address] [place] [address] Discharge Disposition: Discharge to home or self care Social History Tobacco Use Types Packs/Day Years Used Date Smoking Tobacco: Heavy Smoker Comments:Smoking History Pac ks/day: 2 Packs Alcohol Use Standard Drinks/Week Comments No 0 (1 standard drink = 0.6 oz pur e alcohol) Sex and Gender Information Value Date Recorded Sex Assigned at Not on file Legal Sex Male 12:56 AM CHEESEMAKER Gender Identity Not on file Sexual Orientation [...] 11/29/2016 12:[address] [place] ?[id number] ??Acc#: ??[id number] DATE OF EXAM: ??Nov 29 [address] ?? CT Abd/Pel WO ?[id number] HISTORY: BI KIDNEY STONES. TECHNIQUE: Serial axial [...] GLASS Requesting: ??DR ROMANA GLASS Requesting Fax: ??[phone] Attending Fax: ??[phone] Attending ID: ??[id number] Requesting ID: ??[id number] Report To 1 ID: ??[id number] Report To 1 Name: ??DR ALEXIA CABALLERO Report To 1 FAX: ??[phone] NextGen Order #: ?? Procedure Note Miscellaneous, Not In File / Provider, MD Emmie - 11/29/2016 CT Abd/[place] [id number] Acc#: [id number] DATE OF EXAM: Nov [address] Abd/[place] [id number] HISTORY: BI KIDNEY STONES. TECHNIQUE: Serial axial [...] on: Nov 29 2016 8:09A Transcribed by: [facility] On: Nov 29 2016 8:07A Approved Electronically by: APOLINAR GARRISON M.D. on: Nov 29 2016 8:07A Ordering DR: DR ROMANA GLASS Attending DR: ROMANA GLASS Attending: ROMANA GLASS Requesting: DR ROMANA GLASS Requesting Attending Attending ID: [id number] Requesting ID: [id number] Report To 1 ID: [id number] Report To 1 Name: DR ALEXIA CABALLERO Report To 1 FAX: [phone] Critical access hospital Order #: us Not In File Miscellaneous IMG CT PROCEDURES Mariaa l Result documented in this encounter Visit Diagnoses Not on filedocumented in this encounter Care Teams Projection Welding Machine Operator Relationship Specialty Start Date End Date Alberto Stanton PCP - General 08/31/16 05/01/17 documented as of this encounter
--- OUTSIDE RECORDS SUMMARY | 2024-06-14 23:35 | XMS_ITS | Encounter Summary ---
Author Organization [facility] Address [address] [place] [phone] Phone Care Team Providers Care Computer Drafter Name Role Phone Alberto Stanton Primary Care Provider Criss Robertson MD Unavailable Reason for Visit * Reason Comments Rheumatoid Arthritis Encounter Details Date Type Department Care Team (Late st Contact Info) Description 02/21/2017 10:00 AM CDT Office Visit [facility] [address] [facility] [address] [place] [address] [place] [address] [facility] [address] [place] [address] 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) (Primary Dx); USP use of drug Social History Tobacco Use Types Packs/Day Years Used Date Smoking Tobacco: Heavy Smoker Comments:Smoking History Pac ks/day: 2 Packs Alcohol Use Standard Drinks/Week Comments No 0 (1 standard drink = 0.6 oz pur e alcohol) Sex and Gender Information Value Date Recorded Sex Assigned at Not on file Legal Sex Male 12:56 AM SOCIAL SCIENCES CHAIR Gender Identity Not on file Sexual Orientation [...] Future - Erythrocyte sedimentation rate; Future 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 Cosigned by Criss Blanco MD at 02/21/2017 1:20 PM CDT * Anabell Ward PA - 02/21/2017 10:00 AM CDT Labs stable. documented in this encounter Miscellaneous Notes * Assessment & Plan Note - Anabell Ward PA - 02/21/2017 10:12 AM CDT Associated Problem(s): USP use of drug Will continue to monitor the patient with routine labs. * Assessment & Plan Note - Anabell Ward PA - 02/21/2017 10:10 AM CDT Associated [...] CDT Seropositive rheumatoid arthritis of multiple sites (CMS/[facility]) CRP (ACUTE PHASE) Routine 02/21/2017 10: 44 AM CDT Seropositive rheumatoid arthritis of multiple sites (CMS/[facility]) COMPREHENSIVE METABOLIC PANEL Routine 02/21/2017 10:44 AM CDT Seropositive rheumatoid arthritis of multiple sites ([facility]) documented in this encounter Results * Erythrocyte sedimentation rate (02/21/2017 10:44 AM CDT) Erythrocyte sedimentation rate 2 < OR = 20 mm/h [facility] - Blood specimen (specimen) 02/21/2017 10:44 AM CDT 02/21/2017 10:44 AM CDT Narrative Resulting Agency Comment Performing Organization Information: ?Site ID: ?Name[facility] ?Address: [facility] [place] [address] ?Director: Arti Becerra MD Anabell [facility] LAB BLOOD ORDERABLES Final Result Performing Organization Address City/[facility]/ZIP Co de Phone Number [facility] [place]ahn[place] * CRP (acute phase) (02/21/2017 10:44 AM CDT) Pathologist [facility] C-RP 0.9 <8.0 mg/L [facility] [place] Comment: Please note recent reference range and units of measure changes Blood specimen (specimen) 02/21/2017 10:44 AM CDT 02/21/2017 10:44 AM CDT Narrative Resulting Agency Comment Performing Organization Information: ?Site ID: [place] ?Name: [facility] ?Address: [address] [place] [phone] ?Director: Abelardo Espitia D.O., ABRAM Anabell [facility] BLOOD ORDERABLES Final Result Performing Organization Address [facility] de Phone Number [facility] [place] * (ABNORMAL) Comprehensive metabolic panel (02/21/2017 10:44 AM CDT) Pathologist [facility] Glucose 103(H) 65 - 99 mg/dL [facility] [...] approximately 13% higher for people identified as -Azerbaijani. eGFR NON-AFR. WALLISIAN 66 > OR = 60 mL/min/1 .73m2 [...] Agency Comment Performing Organization Information: ?Site ID: [place] ?Name: [facility] ?Address: Formerly named [facility] [place] [phone] ?Director: Abelardo Espitia D.O., MPH us Anabell CUMM[facility] LAB BLOOD ORDERABLES Final Result [facility] [place] * (ABNORMAL) CBC with auto [...] Performing Organization Information: ?Site ID: [place] ?Name: [facility] ?Address: [facility] [place] [address] ?Director: Arti Becerra MD Anabell CUMMINGS LAB BLOOD ORDERABLES Final Result [facility] [place] documented in this encounter Visit Diagnoses Diagnosis 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) (HCC)- Primary USP use of drug documented in this encounter Care Teams Computer Drafter Relationship Specialty Start Date End Date Alberto Stanton PCP - General 08/31/16 05/01/17 [place] [address] [facility] [address] [place] [address] Rheumatology 02/21/17 documented as of this encounter
--- OUTSIDE RECORDS SUMMARY | 2024-06-14 23:35 | XMS_ITS | Encounter Summary ---
Author Organization [facility] Address [address] [place] [address] Care Team Providers Care Carry In Worker Name Role Phone Alberto StantonAshanti Primary Care Provider UnavailCriss Abad MD Unavailable Lashay Downs RN Unavailable Unavailab Duke Goodwin RN Unavailable UnavailNgozi Husain MD Unavailable [phone] Jose Roberto Marx MD Unavailable [phone] Encounter Details Date Type Department Care Team (Late st Contact Info) Description 11/28/2016 Orders Only [facility] Health Information Management [address] [place] [address] Scanning, Provider Social History Tobacco Use Types [...] on file Legal Sex Male 12:56 AM PET FOOD DEBONER Gender Identity Not on file Sexual Orientation [...] on filedocumented in this encounter Care Teams Carry In Worker Relationship Specialty Start Date End Date Alberto Stanton PCP - General 08/31/16 05/01/17 [place] [address] [facility] [address] [place] [address] Rheumatology 02/21/17 Lashay Downs, RN Registered Nurse Pain Management 06/17/17 Duke Do, RN Registered Nurse 09/09/17 Ngozi Petty MD Radiation Oncologist Radiation Oncology 02/05/19 Jose Roberto Marx MD Referring Physician Otolaryngology 02/05/19 documented as of this encounter
--- OUTSIDE RECORDS SUMMARY | 2024-06-14 23:35 | XMS_ITS | Encounter Summary ---
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 alf use of drug Assessment & Plan: Will continue to monitor the patient with routine labs. Cosigned by Criss Blanco MD at 11/22/2016 9:09 AM CDT * Anabell Ward PA - 11/21/2016 9:00 AM CDT Labs stable. documented in this encounter Miscellaneous Notes * Assessment & Plan Note - Anabell Ward PA - 11/21/2016 9:17 AM CDTAssociated Problem(s): alf use of drug Will continue to monitor the patient with routine labs. 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 Increased the MTX at the last Ov. Will continue MtX at this time. He does not want prednisone at this time. documented in this encounter Plan of Treatment Not on file documented as of this encounter Procedures Procedure Name Priority Date/Time Associated Diagnosis Comments ERYTHROCYTE SEDIMENTATION RATE Routine 11/21/2016 9:29 AM CDT Seropositive rheumatoid arthritis of multiple sites ([facility]/HCC) CBC WITHOUT DIFFERENTIAL Routine 11/21/2016 9:29 AM CDT Seropositive rheumatoid arthritis of multiple sites ([facility]) CRP (ACUTE PHASE) Routine 11/21/2016 9:2 9 AM CDT Seropositive rheumatoid arthritis of multiple sites ([facility]) COMPREHENSIVE METABOLIC PANEL Routine 11/21/2016 9:29 AM CDT Seropositive rheumatoid arthritis of multiple sites ([facility]) documented in this encounter Results * Erythrocyte sedimentation rate (11/21/2016 9:29 AM CDT) Erythrocyte sedimentation rate 2 < OR = 20 mm/h [facility] - Blood specimen (specimen) 11/21/2016 9:29 AM CDT 11/21/2016 9:30 AM CDT Narrative [facility] - 11/22/2016 11:00 AM CDT FASTING:NO Resulting Agency Comment Performing Organization Information: ?Site ID: ?[facility] ?Address: [facility] [place] [address] ?Director: Arti Becerra MD Anabell C[facility] LAB BLOOD ORDERABLES Final Result Performing Organization Address [facility] Co de Phone Number [facility] [place], [place] * CRP (acute phase) (11/21/2016 9:29 AM CDT) C-RP <0.10 <0.80 mg/dL [facility] - [place] Comment: Please be advised that patients taking Carboxypenicillins may exhibit falsely decreased C-Reactive Protein levels due to an analytical interference in this assay. Blood specimen (specimen) 11/21/2016 9:29 AM CDT 11/21/2016 9:30 AM CDT Narrative [facility] - 11/22/2016 11:00 AM CDT FASTING:NO Resulting Agency Comment Performing Organization Information: ?Site ID: [place] ?Name: [facility] ?Address: [address] [place] [phone] ?Director: Abelardo Espitia D.O. MPH Anabell [facility] LAB BLOOD ORDERABLES Final Result Performing Organization Address [facility] Co de Phone Number [facility] [place] * Comprehensive metabolic panel (11/21/2016 9:29 AM CDT) Glucose 86 65 - 99 mg/dL [facility] [place] Comment: ? Fasting reference interval BUN 22 7 - 25 mg/dL [facility] [place] Creatinine 1.13 0.70 - 1.18 mg/dL [facility] [place] Comment: For patients >49 years of age, the reference limit for Creatinine is approximately 13% higher for people identified as -Ivorian. eGFR NON-AFR. PARAGUAYAN 64 > OR = 60 mL/min/1 .73m2 [...] AM CDT 11/21/2016 9:30 AM CDT Narrative [facility] - 11/22/2016 11:00 AM CDT FASTING:NO Resulting Agency Comment Performing Organization Information: ?Site ID: [place] ?Name: [facility] ?Address: [address] [place] [address] ?Director: Abelardo Espitia D.O., MPH Anabell CUM[facility]INGS LAB BLOOD ORDERABLES Final Result [facility] - [place] * CBC without differential (11/21/2016 9:29 AM CDT) WBC 5.9 3.8 - 10.8 Thousand/uL [facility] [place] RBC, POC 5.03 4.20 - 5.80 Million/uL [facility] [place] Hgb 16.3 13.2 - 17.1 g/dL [facility] [place] Hct 48.1 38.5 - 50.0 % [facility] [place] MCV 95.4 80.0 - 100.0 fL [facility] [place] MCH 32.4 27.0 - 33.0 pg [facility] [place] MCHC 33.9 32.0 - 36.0 g/dL [facility] [place] Rdw 14.9 11.0 - 15.0 % [facility] [place] Platelets 175 140 - 400 Thousand/uL [facility] - MPV 9.0 7.5 - 12.5 fL [facility] - Blood specimen (specimen) 11/21/2016 9:29 AM CDT 11/21/2016 9:30 AM CDT Narrative [facility] - 11/22/2016 11:00 AM CDT FASTING:NO Resulting Agency Comment Performing Organization Information: ?Site ID: ?Name: [facility] ?Address: [facility] [place] [address] ?Director: Arti Becerra MD Anabell CUM[facility] LAB BLOOD ORDERABLES Final Result [facility] [place], [place] documented in this encounter Visit Diagnoses Diagnosis 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
--- OUTSIDE RECORDS SUMMARY | 2024-06-14 23:35 | XMS_ITS | Encounter Summary ---
Author Organization [facility] Healthcare Address [address] [place] [address] Care Team Providers Care Marketing Database Coordinator Name Role Phone Criss Blanco MD Unavailable Lashay Downs RN Unavailable Unavailab le Encounter Details Date Type Department Care Team (Late st Contact Info) Description 06/18/2017 8:45 AM PHYSICAL SECURITY MANAGER - 06/18/2017 9:00 AM [facility] Surgery [facility] [address] [place] [address] [address] [place] [address] Clive Mackey MD [address] [place] [address] [address] [place] [address] Injection Transforaminal Lumbo/Sacral 1 Level 53188 Surgery Details Date/Time Status Location OR Service Patient Class Case Class Case Type Trauma Case? 06/18/2017 8:45 AM Posted [facility] Pain Management Procedure Center [facility] PM 1 Pain Management Outpatient Elective Panel 1 Procedure LRB Anes Op Region Wound Class Comments Injection Transforaminal Lum barrera/Sacral 1 Level 13061 Right Local Back N/A Surgeon Surgeon Role [...] file Legal Sex Male 12:56 AM PHYSICAL SECURITY MANAGER Gender Identity Not on file Sexual [...] vital signs they will be discharged home. ICAL SECURITY MANAGER documented in this encounter Miscellaneous Notes * Perioperative Nursing Note - Lashay Downs RN - 06/18/2017 9:20 AM PHYSICAL SECURITY MANAGER Discharge instructions reviewed with pt. Verbalized understanding. To return in 1 week for #2 injection of series. ICAL SECURITY MANAGER * Perioperative Nursing Note - Lashay Downs RN - 06/18/2017 9:02 AM PHYSICAL SECURITY MANAGER Seen by Dr. Mackey pre procedure. ICAL SECURITY MANAGER documented in this encounter Plan of Treatment Not on file documented as of this encounter Procedures Procedure Name Priority Date/Time Associated Diagnosis Comments XR SPINE LUMBAR 2 OR 3 VIEWS IP Routine 06/18/2017 9:23 AM PHYSICAL SECURITY MANAGER INJECTION TRANSFORAMINAL LUMBO/SACRAL 1 LEVEL 06/18/2017 9:11 AM PHYSICAL SECURITY MANAGER Case Notes RT L4-5 TF (1ST) documented in this encounter Results * XR Spine Lumbar 2 or 3 Views (06/18/2017 9:23 AM PHYSICAL SECURITY MANAGER) Narrative [facility] - 06/18/2017 9:24 AM PHYSICAL SECURITY MANAGER The images from this study are [...] at 0915, Intra-Op Given 06/18/2017 9:18 AM PHYSICAL SECURITY MANAGER 10 mg Back iohexol (OMNIPAQUE) 240 mg iodine/mL injection solution As needed, Starting on Sat06/18/17 at 0915, Intra-Op Given 06/18/2017 9:18 AM PHYSICAL SECURITY MANAGER 4 mL Back lidocaine (XYLOCAINE) 10 mg/mL (1 %) injection As needed, Starting on Sat06/18/17 at 0914, Intra-Op, Indications: Administration of Local AnesthesiaIndications:Administratio n of Local Anesthesia Given 06/18/2017 9:14 AM PHYSICAL SECURITY MANAGER 2 mL Back sodium chloride 0.9% 0.9 % solution As needed, Starting on Sat06/18/17 at 0915, Intra-Op Given 06/18/2017 9:17 AM PHYSICAL SECURITY MANAGER 2 mL Back documented in this encounter Active and Recently Administered Medications Times are shown in PHYSICAL SECURITY MANAGER. PRN Medication Order 06/16/2017 06/17/2017 06/18/2017 dexamethasone [...] epidural) documented in this encounter Care Teams Marketing Database Coordinator Relationship Specialty [place] [address] [facility] [address] [address] Rheumatology 02/21/17 Lashay Downs, RN Registered Nurse Pain Management 06/17/17 documented as of this encounter
--- OUTSIDE RECORDS SUMMARY | 2024-06-14 23:35 | XMS_ITS | Encounter Summary ---
Author Organization [facility] Healthcare Address [address] [place] [address] Care Team Providers Care Supervisor Spring Up Name Role Phone Criss Blanco MD Unavailable Lashay Downs RN Unavailable Unavailab le Encounter Details Date Type Department Care Team (Latest Contact Info) Description 06/25/2017 8:29 AM BRIM RAISER - 06/25/2017 9:18 AM BRIM RAISER Hospital Encounter [facility] [address] [place] [address] [place] [address] Clive Mackey MD [address] [facility] [address] [place] [address] Discharge Disposition: Discharge to home or self [...] on file Legal Sex Male 12:56 AM BRIM RAISER Gender Identity Not on file Sexual Orientation Not on file documented as of this encounter Last Filed Vital Signs Vital Sign Reading Time Taken Comments Blood Pressure 114/100 06/25/2017 9:17 AM BRIM RAISER Pulse 74 06/25/2017 9:17 AM BRIM RAISER Temperature 36 ??C (96.8 ??F) 06/25/2017 8:45 AM BRIM RAISER Respiratory Rate 17 06/25/2017 9:17 AM BRIM RAISER Oxygen Saturation 98% 06/25/2017 9:17 AM BRIM RAISER Inhaled Oxygen Concentration - - Weight - [...] vital signs, patient will be discharged home. RAISER documented in this encounter Miscellaneous Notes * Perioperative Nursing Note - Lashay Downs RN - 06/25/2017 9:18 AM BRIM RAISER Discharge instructions reviewed with pt. Verbalized understanding. Hard copy given to pt. To returnin 2 weeks for #3 injection in series. RAISER documented in this encounter Plan of Treatment Not on file documented as of this encounter Procedures Procedure Name Priority Date/Time Associated Diagnosis Comments XR SPINE LUMBAR 2 OR 3 VIEWS IP Routine 06/25/2017 9:11 AM BRIM RAISER INJECTION - EPIDURAL STEROID - LUMBAR 06/25/2017 9:02 AM BRIM RAISER Case Notes RT L4-5 TF (2ND) documented in this encounter Results * XR Spine Lumbar 2 or 3 Views (06/25/2017 9:11 AM BRIM RAISER) Narrative [facility] - 06/25/2017 9:12 AM BRIM RAISER The images from this study are not interpreted by Radiology. ??Please refer to the physician's procedure / OR operative note. us Clive Mackey MD IMG XR PROCEDURES Final Re sult [facility] documented in this encounter Visit Diagnoses Not on filedocumented in this encounter Active and Recently Administered Medications Times are shown in BRIM RAISER. PRN Medication Order 06/23/2017 06/24/2017 06/25/2017 dexamethasone [...] 06/25 documented in this encounter Care Teams Supervisor Spring Up Relationship Specialty [place] [address] [facility] [address] [place] [address] Rheumatology 02/21/17 Lashay Downs, GAY Registered Nurse Pain Management 06/17/17 documented as of this encounter
--- OUTSIDE RECORDS SUMMARY | 2024-06-14 23:35 | XMS_ITS | Encounter Summary ---
Author Organization [facility] Healthcare Address [address] [place] [address] Care Team Providers Care Engineer Name Role Phone Criss Blanco MD Unavailable Encounter Details Date Type Department Care Team (Late st Contact Info) Description 06/09/2017 5:18 PM SEED CLEANER - 06/09/2017 6:45 PM [facility] Emergency [facility] Emergency Department [address] [place] [address] Sotero Randolph Jr., MD [facility] [place] [address] Discharge Disposition: Left without being seen Social History Tobacco Use Types Packs/Day Years Used Date Smoking Tobacco: Former Smokeless Tobacco: Never Comments:Smoking History Pac ks/day: 2 Packs Alcohol Use Standard Drinks/Week Comments No 0 (1 standard drink = 0.6 oz pur e alcohol) Sex and Gender Information Value Date Recorded Sex Assigned at Not on file Legal Sex Male 12:56 AM SEED CLEANER Gender Identity Not on file Sexual [...] filedocumented in this encounter Care Teams Engineer Relationship Specialty [place] [address] [facility] [address] [place] [address] Rheumatology 02/21/17 documented as of this encounter
--- OUTSIDE RECORDS SUMMARY | 2024-06-14 23:35 | XMS_ITS | Encounter Summary ---
Author Organization [facility] Healthcare Address [address] [place] [address] Care Team Providers Care Wireless Sales Consultant Name Role Phone Criss Blanco MD Unavailable Reason for Visit * Reason Comments Fall Encounter Details Date Type Department Care Team (Late st Contact Info) Description 05/16/2017 10:55 AM SUPERVISOR DRY CLEANING - 05/16/2017 12:17 PM SUPERVISOR DRY CLEANING Emergency [facility] Emergency Department [address] [place] [address] Adonis Nguyen MD [facility] [place] [address] Acute right-sided low back pain without sciatica [...] file Legal Sex Male 12:56 AM SUPERVISOR DRY CLEANING Gender Identity Not on file Sexual Orientation Not on file documented as of this encounter Last Filed Vital Signs Vital Sign Reading Time Taken Comments Blood Pressure 123/86 05/16/2017 11:11 AM SUPERVISOR DRY CLEANING Pulse 68 05/16/2017 11:11 AM SUPERVISOR DRY CLEANING Temperature 36.2 ??C (97.1 ??F) 05/16/2017 11:[address] Respiratory Rate 18 05/16/2017 11:11 AM SUPERVISOR DRY CLEANING Oxygen Saturation 97% 05/16/2017 11:11 AM SUPERVISOR DRY CLEANING Inhaled Oxygen Concentration - - Weight 106.6 kg (235 lb) 05/16/2017 11:11 AM SUPERVISOR DRY CLEANING Height 185.4 cm (6' 1 ) 05/16/2017 11:11 AM SUPERVISOR DRY CLEANING Body Mass Index 31 05/16/2017 11:11 AM SUPERVISOR DRY CLEANING documented in this encounter Discharge Instructions * Attachments The following attachments cannot be sent through Care Everywhere. * Back Pain (Acute or Chronic) ([place]) documented in this encounter Medications at Time [...] Means Destination Discharge to home or self nursing home documented in this encounter ED Notes * Isamar Fox VAULT MANAGER - 05/16/2017 12:04 PM CST Images from the original note were not included. HPI Chief Complaint Patient presents with ??? Fall Patient states that he tripped over the dog last night, landing on right hip. States that he has chronic back pain and sciatica. History provided by: Patient vmware consultant used: No Back Pain Pain location: right [...] OTHER MEDICAL hemorroids; Comments: Had done [facility] in [place] ??? HX OTHER MEDICAL bladder infection ??? HX OTHER MEDICAL kidney stone ??? Malignant neoplasm of prostate ([facility]/HCC) 1998 prostate Past Surgical History: Procedure Laterality [...] Adonis Nguyen MD at 05/16/2017 2:44 PM SUPERVISOR DRY CLEANING RVISOR DRY CLEANING RVISOR DRY CLEANING documented in this encounter Plan of Treatment Not on file documented as of this encounter Visit Diagnoses Diagnosis Acute right-sided low back pain without sciatica- Primary documented in this encounter Care Teams Wireless Sales Consultant Relationship Specialty [place] [address] [facility] [address] [place] [address] Rheumatology 02/21/17 documented as of this encounter
--- OUTSIDE RECORDS SUMMARY | 2024-06-14 23:35 | XMS_ITS | Encounter Summary ---
Author Organization [facility] Healthcare Address [address] [place] [address] Care Team Providers Care Graphic Pre Press Trades Worker Name Role Phone Criss Blanco MD Unavailable Lashay Downs RN Unavailable Unavailab le Reason for Visit * Reason Comments Flank Pain left Encounter Details Date Type Department Care Team (Late st Contact Info) Description 07/07/2017 9:59 PM RESIDENTIAL CHILD CARE COUNSELOR - 07/08/2017 1:09 AM RESIDENTIAL CHILD CARE COUNSELOR Emergency [facility] Emergency Department [address] [place] [address] Josey Jarvis Bladder wall thickening (Primary Dx); [...] file Legal Sex Male 12:56 AM RESIDENTIAL CHILD CARE COUNSELOR Gender Identity Not on file Sexual Orientation Not on file documented as of this encounter Last Filed Vital Signs Vital Sign Reading Time Taken Comments Blood Pressure 120/90 07/07/2017 11:10 PM RESIDENTIAL CHILD CARE COUNSELOR Pulse 61 07/07/2017 11:10 PM RESIDENTIAL CHILD CARE COUNSELOR Temperature 36.8 ??C (98.3 ??F) 07/07/2017 11:[address] Respiratory Rate 18 07/07/2017 11:10 PM RESIDENTIAL CHILD CARE COUNSELOR Oxygen Saturation 100% 07/07/2017 11:10 PM RESIDENTIAL CHILD CARE COUNSELOR Inhaled Oxygen Concentration - - Weight 103 kg (227 lb) 07/07/2017 10:06 PM RESIDENTIAL CHILD CARE COUNSELOR Height 185.4 cm (6' 1 ) 07/07/2017 10:06 PM RESIDENTIAL CHILD CARE COUNSELOR Body Mass Index 29.95 07/07/2017 10:06 PM RESIDENTIAL CHILD CARE COUNSELOR documented in this encounter Discharge Instructions * Discharge Instructions* Josey Jarvis MD - 07/08/2017 1:04 AM RESIDENTIAL CHILD CARE COUNSELOR You were evaluated for flank pain. It [...] pain, fever, or for any other concern. DENTIAL CHILD CARE COUNSELOR * Attachments The following attachments cannot be sent through Care Everywhere. * Flank Pain, Uncertain Cause (Kosovan) documented in this encounter Medications at Time [...] Active Problem List Diagnosis Date Noted ??? supervisor intermediates use of drug 11/21/2016 ??? Seropositive rheumatoid arthritis of multiple sites ([facility]) 07/03/2011 Class: Chronic ??? Headache 12/22/2009 Class: [...] OTHER MEDICAL hemorroids; Comments: [facility] [place] ??? HX OTHER MEDICAL bladder infection ??? HX OTHER MEDICAL kidney stone ??? Malignant neoplasm of prostate ([facility]) 1998 prostate Past Surgical History: Procedure [...] ED Course User Index [ELIZABETH] Sue Ryan [facility] Number of Diagnoses or Management Options Bladder [...] Flank pain Josey Jarvis MD 07/08/17 0149 DENTIAL CHILD CARE COUNSELOR * Linh Leon RN - 07/07/2017 10:07 PM CST PT reports he has known kidney stones and is having left flank pain today. States I think one of this is on the move. DENTIAL CHILD CARE COUNSELOR documented in this encounter Plan of Treatment Not on file documented as of this encounter Procedures Procedure Name Priority Date/Time Associated Diagnosis Comments DISCHARGE LABORATORY CUMULATIVE REPORT 07/08/2017 12:00 AM RESIDENTIAL CHILD CARE COUNSELOR CT ABDOMEN PELVIS WO CONTRAST ED 07/07/2017 11:41 PM RESIDENTIAL CHILD CARE COUNSELOR URINALYSIS AND REFLEX TO MICROSCOPIC AND CULTURE STAT 07/07/2017 11:05 PM RESIDENTIAL CHILD CARE COUNSELOR EGFR STAT 07/07/2017 10:25 PM RESIDENTIAL CHILD CARE COUNSELOR DIFFERENTIAL AUTO STAT 07/07/2017 10: 25 PM RESIDENTIAL CHILD CARE COUNSELOR CBC WITH AUTO DIFFERENTIAL STAT 07/07/2017 10:25 PM RESIDENTIAL CHILD CARE COUNSELOR COMPREHENSIVE METABOLIC PANEL STAT 07/07/2017 10:25 PM RESIDENTIAL CHILD CARE COUNSELOR documented in this encounter Results * DISCHARGE LABORATORY CUMULATIVE REPORT (07/08/2017 12:00 AM RESIDENTIAL CHILD CARE COUNSELOR) Narrative 07/08/2017 12:00 AM RESIDENTIAL CHILD CARE COUNSELOR Ordered by an unspecified provider. Historical Provider LAB BLOOD ORDERABLES Mariaa l Result * CT Abdomen Pelvis WO Contrast (07/07/2017 11:41 PM RESIDENTIAL CHILD CARE COUNSELOR) Anatomical Region Laterality Modality Body N/A Computed Tomogra phy Impressions 07/08/2017 7:37 AM RESIDENTIAL CHILD CARE COUNSELOR 1. ??MULTIPLE BILATERAL RIGHT GREATER THAN LEFT [...] Adryan Garrison M.D. Narrative 07/08/2017 7:37 AM RESIDENTIAL CHILD CARE COUNSELOR CT ABDOMEN PELVIS WO CONTRAST HISTORY: Severe [...] to microscopic and culture (07/07/2017 11:05 PM RESIDENTIAL CHILD CARE COUNSELOR) Color, ur Yellow Yellow [facility] (BRE) [...] [facility] (BRE) Urine 07/07/2017 11:0 5 PM RESIDENTIAL CHILD CARE COUNSELOR 07/08/2017 12:43 AM RESIDENTIAL CHILD CARE COUNSELOR Narrative ANDRE MORAES (BRE) - 07/08/2017 12:44 AM RESIDENTIAL CHILD CARE COUNSELOR us Josey Jarvis LAB MICROBIOLOGY - [facility] ORDERABLES Final Result ANDRE MORAES (BRE) 1 [facility] Department [place] [address] * eGFR (07/07/2017 10:25 PM RESIDENTIAL CHILD CARE COUNSELOR) eGFR >60 mL/min/1.7 3 m2 ANDRE MORAES (BRE) Comment: Interpretive Data Reference Interval Normal ?>/= 90 mL/min/1.73m2 Mildly decreased* ? 60 - 89 mL/min/1.73m2 Mildly to moderately decreased ?45 - 59 mL/min/1.73m2 Moderately to severely decreased ??30 - 44 mL/min/1.73m2 Severely decreased ?15 - 29 mL/min/1.73m2 Kidney Failure ?< 15 ??mL/min/1.73m2 *Relative to young adult level If -Prydeinig multiply value by 1.16. Estimated glomerular filtration [...] 2015. Blood specimen (specimen) 07/07/2017 10:25 PM RESIDENTIAL CHILD CARE COUNSELOR 07/07/2017 10:28 PM RESIDENTIAL CHILD CARE COUNSELOR Narrative ANDRE MORAES (BRE) - 07/07/2017 10:50 PM RESIDENTIAL CHILD CARE COUNSELOR us Adonis Nguyen MD LAB BLOOD ORDERABLES Final Result ANDRE MORAES (BRE) 1 [facility] [place] [address] * (ABNORMAL) Differential, auto (07/07/2017 10:25 PM RESIDENTIAL CHILD CARE COUNSELOR) Neutrophil pct 60.0 44.0 - 80.0 % [...] (BRE) Blood specimen (specimen) 07/07/2017 10:25 PM RESIDENTIAL CHILD CARE COUNSELOR 07/07/2017 10:28 PM RESIDENTIAL CHILD CARE COUNSELOR Narrative [facility] (BRE) - 07/07/2017 10:36 PM RESIDENTIAL CHILD CARE COUNSELOR Adonis Nguyen MD LAB BLOOD ORDERABLES Final Result ANDRE MORAES (BRE) 1 [facility] [employer] [place] [address] * Comprehensive metabolic panel (07/07/2017 10:25 PM RESIDENTIAL CHILD CARE COUNSELOR) Sodium 145 135 - 145 mmol/L CERNER [...] (BRE) Blood specimen (specimen) 07/07/2017 10:25 PM RESIDENTIAL CHILD CARE COUNSELOR 07/07/2017 10:28 PM RESIDENTIAL CHILD CARE COUNSELOR Narrative [facility] (BRE) - 07/07/2017 10:50 PM RESIDENTIAL CHILD CARE COUNSELOR Josey Jarvis LAB BLOOD ORDERABLES Fi nal Result [facility] (BRE) 1 [facility] [employer] [place] [address] * (ABNORMAL) CBC with auto differential (07/07/2017 10:25 PM RESIDENTIAL CHILD CARE COUNSELOR) WBC 5.3 3.8 - 9.9 K/cumm CERNER [...] (BRE) Blood specimen (specimen) 07/07/2017 10:25 PM RESIDENTIAL CHILD CARE COUNSELOR 07/07/2017 10:28 PM RESIDENTIAL CHILD CARE COUNSELOR Narrative [facility] (BRE) - 07/07/2017 10:36 PM RESIDENTIAL CHILD CARE COUNSELOR Josey Jarvis LAB BLOOD ORDERABLES Fi nal Result ANDRE MORAES (BRE) 1 [facility] [employer] [place] [address] documented in this encounter Visit Diagnoses Diagnosis [...] For 1 dose Given 07/07/2017 11:08 PM RESIDENTIAL CHILD CARE COUNSELOR 30 mg Right Deltoid documented in this encounter Active and Recently Administered Medications Times are shown in RESIDENTIAL CHILD CARE COUNSELOR. Scheduled Medication Order 07/06/2017 07/07/2017 07/08/2017 ketorolac (TORADOL) injection 30 mg (COMPLETED) 30 mg, intramuscular, Once, On 07/07/17 at 2315, For 1 dose 2308 (Given - Provider: Alona James RN) documented in this encounter Care Teams Graphic Pre Press Trades Worker Relationship Specialty [place] [address] [address] Rheumatology 02/21/17 Lashay Downs RN Registered Nurse Pain Management 06/17/17 documented as of this encounter
--- OUTSIDE RECORDS SUMMARY | 2024-06-14 23:36 | XMS_ITS | Encounter Summary ---
Author Organization [facility] Medical Group Address [address] [place] [address] Care Team Providers Care Lens Fabricating Machine Tender Name Role Phone Alberto Stanton Primary Care Provider Unavailabl e Encounter Details Date Type Department Care Team (Late st Contact Info) Description 10/06/2016 Orders Only [facility] [address] [place] [address] 1[address] [place] [id number] Jimenez Mckeon MD [address] [address] Social History Tobacco Use Types Packs/Day Years Used Date Smoking Tobacco: Heavy Smoker Comments:Smoking History Pac ks/day: 2 Packs Alcohol Use Standard Drinks/Week Comments No 0 (1 standard drink = 0.6 oz pur e alcohol) Sex and Gender Information Value Date Recorded Sex Assigned at Not on file 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
--- OUTSIDE RECORDS SUMMARY | 2024-06-14 23:36 | XMS_ITS | Encounter Summary ---
Author Organization [facility] Medical Group Address [address] [place] [address] Care Team Providers Care Display Designer Name Role Phone Alberto Stanton Primary Care Provider Unavailabl e Encounter Details Date Type Department Care Team (Late st Contact Info) Description 10/06/2016 Orders Only [facility] [address] [place] [address] 1st [place] [address] Jimenez Mckeon MD [address] [address] Social History Tobacco Use Types Packs/Day Years Used Date Smoking Tobacco: Heavy Smoker Comments:Smoking History Pac ks/day: 2 Packs Alcohol Use Standard Drinks/Week Comments No 0 (1 standard drink = 0.6 oz pur e alcohol) Sex and Gender Information Value Date Recorded Sex Assigned at Not on file 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 60 - 89 mL/min/1.73m2 Mildly to moderately decreased ?45 - 59 mL/min/1.73m2 Moderately to severely decreased ??30 - 44 mL/min/1.73m2 Severely decreased ?15 - 29 mL/min/1.73m2 Kidney Failure ?< 15 ??mL/min/1.73m2 *Relative to young adult level If -Panamanian multiply value by 1.16. Estimated glomerular filtration [...] ORDERABLES Final Res ult Performing Organization Address City/State/[facility] Co de Phone Number [facility] [place] 1 [facility] Department of Laboratories [place], [place] [id number] documented in this encounter Visit Diagnoses Not on filedocumented in this encounter Care Teams Display Designer Relationship Specialty Start Date End Date Alberto Stanton PCP - General 08/31/16 05/01/17 documented as of this encounter
--- OUTSIDE RECORDS SUMMARY | 2024-06-14 23:36 | XMS_ITS | Encounter Summary ---
Author Organization [facility] Healthcare Address [address] [place] [address] Care Team Providers Care Petroleum Inspector Name Role Phone Alberto Stanton Primary Care Provider Unavailabl e Encounter Details Date Type Department Care Team (Late st Contact Info) Description 10/06/2016 8:11 AM CDT - 10/06/2016 11:50 AM CDT Emergency [facility] Emergency Department [address] [place] [address] Jimenez Ivey MD 1 [facility] [place] [address] [place] [address] Discharge Disposition: Discharge to home or self care Social History Tobacco Use Types Packs/Day Years Used Date Smoking Tobacco: Heavy Smoker Comments:Smoking History Pac ks/day: 2 Packs Alcohol Use Standard Drinks/Week Comments No 0 (1 standard drink = 0.6 oz pur e alcohol) Sex and Gender Information Value Date Recorded Sex Assigned at Not on file 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 [place] ??[id number] HISTORY: Abdominal Pain. TECHNIQUE: Serial axial images [...] IVEY Requesting: ??DR JIMENEZ IVEY Requesting Fax: ??[phone] Attending Fax: ??[phone] Attending ID: ??[id number] Requesting ID: ??[id number] Report To 1 ID: ??[id number] Report To 1 Name: ??DR JIMENEZ IVEY Report To 1 FAX: ??[phone] [facility] Order #: ?? Procedure Note Miscellaneous, Not In File / Provider, MD Emmie - 10/27/[place] [address] Acc#: [id number] DATE OF EXAM: Oct [address] [place] [address] HISTORY: Abdominal Pain. TECHNIQUE: Serial axial images [...] on: Oct 06 2016 9:39A Transcribed by: [facility] On: Oct 06 2016 9:37A Approved Electronically by: APOLINAR GARRISON M.D. on: Oct 06 2016 9:37A Ordering DR: DR JIMENEZ IVEY Attending DR: DR JIMENEZ IVEY Attending: DR JIMENEZ IVEY Requesting: DR JIMENEZ IVEY Requesting Attending Attending ID: [id number] Requesting ID: [id number] Report To 1 ID: [id number] Report To 1 Name: DR JIMENEZ IVEY Report To 1 FAX: [phone] [facility] Order #: us Not In File Miscellaneous IMG CT PROCEDURES Mariaa l Result documented in this encounter Visit Diagnoses Not on filedocumented in this encounter Care Teams Petroleum Inspector Relationship Specialty Start Date End Date Alberto Stanton PCP - General 08/31/16 05/01/17 documented as of this encounter
--- OUTSIDE RECORDS SUMMARY | 2024-06-14 23:36 | XMS_ITS | Encounter Summary ---
Author Organization [facility] Healthcare Address [address] [place] [address] Care Team Providers Care Requirements Analyst Name Role Phone Alberto Stanton Primary Care Provider Unavailabl e Encounter Details Date Type Department Care Team (Late st Contact Info) Description 01/02/2016 12:32 PM CDT - 01/02/2016 11:59 PM CDT Hospital [place] [address] [place] [address] Enlarged prostate with lower urinary tract symptoms (LUTS) Social History Tobacco Use Types Packs/Day Years Used Date Smoking Tobacco: Heavy Smoker Comments:Smoking History Pac ks/day: 2 Packs Alcohol Use Standard Drinks/Week Comments No 0 (1 standard drink = 0.6 oz pur e alcohol) Sex and Gender Information Value Date Recorded Sex Assigned at Not on file 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 Gender Identity Not on file Sexual [...] ng/ml CDR HISTORICAL RESULTS Comment:Test performed at [facility], [address] [place] [address], [place]., [address] Serum 01/02/2016 12:4 0 PM CDT us Mehdi Glass MD LAB BLOOD ORDERABLES Final Resu lt CDR HISTORICAL RESULTS documented in this encounter Visit Diagnoses Diagnosis Enlarged prostate with lower urinary tract symptoms (LUTS) 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
--- OUTSIDE RECORDS SUMMARY | 2024-06-14 23:36 | XMS_ITS | Encounter Summary ---
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 Gender Identity Not on file Sexual Orientation [...] Lower Leg/Calf WO R ??- RIGHT Acc#: ??[id number] DATE OF EXAM: ??Jan 11 2016 CLINICAL [...] ??DR HERNANDO DE LA CRUZ Requesting Fax: ??[phone] Attending Fax: ??[phone] Attending ID: ??[id number] Requesting ID: ??[id number] Report To 1 ID: ??[id number] Report To 1 Name: ??DR HERNANDO DE LA CRUZ Report To 1 FAX: ??[phone] [facility] Order #: Procedure Note Provider, MD Emmie - 09/23/2016 MR Lower Leg/Calf WO R - RIGHT Acc#: [id number] DATE OF EXAM: Jan 11 2016 CLINICAL [...] DE LA CRUZ Requesting Attending Attending ID: [id number] Requesting ID: [id number] Report To 1 ID: [id number] Report To 1 Name: DR HERNANDO DE LA CRUZ Report To 1 FAX: [phone] [facility] Order #: us Historical Provider MD CHARLES MRI PROCEDURES Final Result documented in this encounter Visit Diagnoses Diagnosis Pain of right lower leg documented in this encounter Care Teams Band Manager Relationship Specialty Start Date End Date Hernando De La Cruz PCP - General 07/03/11 08/30/16 documented as of this encounter
--- OUTSIDE RECORDS SUMMARY | 2024-06-14 23:36 | XMS_ITS | Encounter Summary ---
Author Organization [facility] Healthcare Address [address] [place] [address] Care Team Providers Care Pantograph Machine Operator Name Role Phone Hernando De La Cruz Primary Care Provider Unavailabl e Encounter Details Date Type Department Care Team (Latest Contact Info) Description 06/07/2015 9:45 AM IN HOME NANNY - 06/07/2015 11:59 PM IN HOME NANNY Hospital Encounter [facility] CLINCONV Hernando De La [...] on file Legal Sex Male 12:56 AM IN HOME NANNY Gender Identity Not on file Sexual Orientation [...] LATERAL 2 VIEWS Routine 06/07/2015 10:38 AM IN HOME NANNY SERUM THYROXINE (T4), FREE Routine 06/07 10:15 AM IN HOME NANNY SERUM THYROID-STIMULATING HORMONE (TSH) Routine 06/07/2015 10:15 AM IN HOME NANNY SERUM LIPID PANEL Routine 06/07/2015 10: 15 AM IN HOME NANNY SERUM ESTIMATED GLOMERULAR FILTRATION RATE Routine 06/07/2015 10:15 AM IN HOME NANNY SERUM BILIRUBIN, DIRECT Routine 06/07/19 16 10:15 AM IN HOME NANNY PLASMA COMPREHENSIVE METABOLIC PANEL Routine 06/07/2015 10:15 AM IN HOME NANNY BLOOD CELL COUNT (CBC), MORPHOLOGIC EXAM Routine 06/07/2015 10:15 AM IN HOME NANNY BLOOD CELL MORPHOLOGIC EXAM Routine 06/07/2015 10:15 AM IN HOME NANNY ELECTROCARDIOGRAPHY (ECG) 06/07/2015 DISCHARGE LABORATORY CUMULATIVE REPORT 06/07/2015 documented in this encounter Results * XR Chest PA Lateral 2 View (06/07/2015 10:38 AM IN HOME NANNY) Anatomical Region Laterality Modality Body, Chest N/A Radiographic Corin ging 06/07/2015 10:3 8 AM IN HOME NANNY Narrative 06/07/2015 12:25 PM IN HOME NANNY XR Chest 2 Views ?[id number] ??Acc#: ??[id number] DATE OF EXAM: ??Eddie ??2015 CLINICAL HISTORY: [...] ??DR HERNANDO DE LA CRUZ Requesting Fax: ??[phone] Attending Fax: ??[phone] Attending ID: ??[id number] Requesting ID: ??[id number] Report To 1 ID: ??[id number] Report To 1 Name: ??DR HERNANDO DE LA CRUZ Report To 1 FAX: ??[phone] [facility] Order #: ??[id number] Procedure Note Provider, MD Emmie - 09/23/2016 XR Chest 2 Views [id number] Acc#: [id number] DATE OF EXAM: Jun 07 2015 CLINICAL [...] DE LA CRUZ Requesting Attending Attending ID: [id number] Requesting ID: [id number] Report To 1 ID: [id number] Report To 1 Name: DR HERNANDO DE LA CRUZ Report To 1 FAX: [phone] [facility] Order #: [id number] Historical Provider IMG XR PROCEDURES Final R esult * Serum thyroid-stimulating hormone (TSH) (06/07/2015 10:15 AM IN HOME NANNY) Pathologist [facility] TSH 1.49 0.30 - 5.00 mcIUnits/ml HISTORICAL RESULTS Serum 06/07/2015 10:1 5 AM IN HOME NANNY Historical Provider LAB BLOOD ORDERABLES Mariaa l Result Performing Organization Address [facility] de Phone Number HISTORICAL RESULTS * Serum bilirubin, direct (06/07/2015 10:15 AM IN HOME NANNY) Pathologist [facility] Bilirubin, direct <0.2 0.0 - 0.3 mg/dl HISTORICAL RESULTS Serum 06/07/2015 10:1 5 AM IN HOME NANNY Historical Provider LAB BLOOD ORDERABLES Mariaa l Result Performing Organization Address [facility] de Phone Number HISTORICAL RESULTS * (ABNORMAL) Plasma comprehensive metabolic panel (06/07/2015 10:15 AM IN HOME NANNY) Sodium 142 135 - 145 mmol/L HISTORICAL [...] HISTORICAL RESULTS Plasma 06/07/2015 10:1 5 AM IN HOME NANNY us Historical Provider LAB BLOOD ORDERABLES Mariaa rosado Result HISTORICAL RESULTS * (ABNORMAL) Serum lipid panel (06/07/2015 10:15 AM IN HOME NANNY) Pathologist [facility] Cholesterol 135 40 - 199 mg/dl HISTORICAL [...] on 2014. Serum 06/07/2015 10:1 5 AM IN HOME NANNY us Historical Provider LAB BLOOD ORDERABLES Mariaa rosado Result HISTORICAL RESULTS * Serum thyroxine (T4), free (06/07/2015 10:15 AM IN HOME NANNY) Free T4 1.1 0.8 - 1.8 ng/dl HISTORICAL RESULTS Serum 06/07/2015 10:1 5 AM IN HOME NANNY Historical Provider LAB BLOOD ORDERABLES Mariaa l Result Performing Organization Address City/[facility]/ZIP Co de Phone Number HISTORICAL RESULTS * (ABNORMAL) Blood cell morphologic exam (06/07/2015 10:15 AM IN HOME NANNY) Neutrophils 58.5 44.0 - 80.0 % HISTORICAL [...] RESULTS Blood specimen (specimen) 06/07/2015 10:15 AM IN HOME NANNY Historical Provider LAB BLOOD ORDERABLES Mariaa l Result HISTORICAL RESULTS * Blood cell count (CBC), morphologic exam (06/07/2015 10:15 AM IN HOME NANNY) WBC 4.9 3.8 - 9.8 K/cumm HISTORICAL [...] RESULTS Blood specimen (specimen) 06/07/2015 10:15 AM IN HOME NANNY Historical Provider LAB BLOOD ORDERABLES Mariaa l Result Performing Organization Address [facility] de Phone Number HISTORICAL RESULTS * Serum estimated glomerular filtration rate (06/07/2015 10:15 AM IN HOME NANNY) eGFR >60 ml/min/1.7 3 m2 HISTORICAL RESULTS Comment: Interpretation of Estimated GFR (eGFR): Normal ?>/= 60 mL/min/1.73m2 Possible Chronic Kidney Disease ??15 - 59 mL/min/1.73m2 Possible Kidney Failure ?< 15 ??mL/min/1.73m2 If -Malian multiply value by 1.16. ??Estimated glomerular filtration [...] in children. Serum 06/07/2015 10:1 5 AM IN HOME NANNY Historical Provider LAB BLOOD ORDERABLES Mariaa l Result Performing Organization Address City/[facility]/ZIP Co de Phone Number HISTORICAL RESULTS * [...] hypertension documented in this encounter Care Teams Pantograph Machine Operator Relationship Specialty Start Date End Date Hernando De La Cruz PCP - General 07/03/11 08/30/16 documented as of this encounter
--- OUTSIDE RECORDS SUMMARY | 2024-06-14 23:36 | XMS_ITS | Encounter Summary ---
Author Organization [facility] Healthcare Address [address] [place] [address] Care Team Providers Care Process Laboratory Specialist Name Role Phone Alberto Stanton Primary Care Provider Unavailabl e Encounter Details Date Type Department Care Team (Late st Contact Info) Description 06/08/2015 7:19 AM SQE - 06/16/2015 11:59 PM [facility] Hospital [place] [address] [address] Sciatica Social History Tobacco Use Types Packs/Day Years Used Date Smoking Tobacco: Heavy Smoker Comments:Smoking History Pac ks/day: 2 Packs Alcohol Use Standard Drinks/Week Comments No 0 (1 standard drink = 0.6 oz pur e alcohol) Sex and Gender Information Value Date Recorded Sex Assigned at Not on file Legal Sex Male 12:56 AM SQE Gender Identity Not on file Sexual Orientation [...] Sciatica documented in this encounter Care Teams Process Laboratory Specialist Relationship Specialty Start Date End Date Alberto Stanton PCP - General 07/03/11 08/30/16 documented as of this encounter
--- OUTSIDE RECORDS SUMMARY | 2024-06-14 23:36 | XMS_ITS | Encounter Summary ---
Author Organization [facility] Healthcare Address [address] [place] [address] Care Team Providers Care Vice President Of Engineering Name Role Phone Alberto Stanton Primary Care Provider Unavailabl e Encounter Details Date Type Department Care Team (Late st Contact Info) Description 04/23/2015 11:00 AM REIMBURSEMENT DIRECTOR - 04/23/2015 1:48 PM REIMBURSEMENT DIRECTOR Hospital Encounter [facility] Barbra Madrid, DO [address] [place] [address] Other chronic pain; Spondylosis of lumbosacral region [...] on file Legal Sex Male 12:56 AM REIMBURSEMENT DIRECTOR Gender Identity Not on file Sexual [...] SPINE LUMBAR ROUTINE Routine 04/23/2015 11:57 AM REIMBURSEMENT DIRECTOR SERUM ESTIMATED GLOMERULAR FILTRATION RATE Routine 04/23/2015 11:40 AM REIMBURSEMENT DIRECTOR PLASMA COMPREHENSIVE METABOLIC PANEL Routine 04/23/2015 11:40 AM REIMBURSEMENT DIRECTOR BLOOD CELL COUNT (CBC), MORPHOLOGIC EXAM Routine 04/23/2015 11:40 AM REIMBURSEMENT DIRECTOR BLOOD CELL MORPHOLOGIC EXAM Routine 04/23/2015 11:40 AM REIMBURSEMENT DIRECTOR URINALYSIS Routine 04/23/2015 11:38 AM REIMBURSEMENT DIRECTOR DISCHARGE LABORATORY CUMULATIVE REPORT 04/23/2015 documented in this encounter Results * XR Lumbar Spine Routine (04/23/2015 11:57 AM REIMBURSEMENT DIRECTOR) Anatomical Region Laterality Modality L-spine N/A Radiographic Corin ging 04/23/2015 11:5 7 AM REIMBURSEMENT DIRECTOR Narrative 04/24/2015 12:17 PM REIMBURSEMENT DIRECTOR XR Lumbar Spine Routine ??[id number] ??Acc#: ??[id number] DATE OF EXAM: ??Apr 23 2015 CLINICAL [...] Fax: ??-- Attending Fax: ??-- Attending ID: ??[id number] Requesting ID: ??[id number] Report To 1 ID: ??[id number] Report To 1 Name: ??BARBRA KAISER Report To 1 FAX: ??-- NextGen Order #: Procedure Note Provider, MD Emmie - 09/23/2016 XR Lumbar Spine Routine [id number] Acc#: [id number] DATE OF EXAM: Apr 23 2015 CLINICAL [...] Apr 24 2015 9:40A Approved Electronically by: APOLNIAR ABDULLAHI M.D. on: Apr 24 2015 12:16P Attending: BARBRA KAISER Requesting: BARBRA KAISER Requesting Fax: -- Attending Fax: -- Attending ID: [id number] Requesting ID: [id number] Report To 1 ID: [id number] Report To 1 Name: BARBRA KAISER Report To 1 FAX: -- NextGen Order #: us Historical Provider IMViky XR PROCEDURES Final R esult * Plasma comprehensive metabolic panel (04/23/2015 11:40 AM REIMBURSEMENT DIRECTOR) Sodium 140 135 - 145 mmol/L HISTORICAL [...] HISTORICAL RESULTS Plasma 04/23/2015 11:4 0 AM REIMBURSEMENT DIRECTOR us Historical Provider LAB BLOOD ORDERABLES Mariaa l Result HISTORICAL RESULTS * (ABNORMAL) Blood cell morphologic exam (04/23/2015 11:40 AM REIMBURSEMENT DIRECTOR) Neutrophils 54.1 44.0 - 80.0 % HISTORICAL [...] RESULTS Blood specimen (specimen) 04/23/2015 11:40 AM REIMBURSEMENT DIRECTOR Historical Provider LAB BLOOD ORDERABLES Mariaa l Result Performing Organization Address [facility] de Phone Number HISTORICAL RESULTS * (ABNORMAL) Blood cell count (CBC), morphologic exam (04/23/2015 11:40 AM REIMBURSEMENT DIRECTOR) WBC 4.4 3.8 - 9.8 K/cumm HISTORICAL [...] RESULTS Blood specimen (specimen) 04/23/2015 11:40 AM REIMBURSEMENT DIRECTOR Historical Provider LAB BLOOD ORDERABLES Mariaa l Result Performing Organization Address [facility] de Phone Number HISTORICAL RESULTS * Serum estimated glomerular filtration rate (04/23/2015 11:40 AM REIMBURSEMENT DIRECTOR) eGFR >60 ml/min/1.7 3 m2 HISTORICAL RESULTS Comment: Interpretation of Estimated GFR (eGFR): Normal ?>/= 60 mL/min/1.73m2 Possible Chronic Kidney Disease ??15 - 59 mL/min/1.73m2 Possible Kidney Failure ?< 15 ??mL/min/1.73m2 If -[place] multiply value by 1.16. ??Estimated glomerular filtration [...] in children. Serum 04/23/2015 11:4 0 AM REIMBURSEMENT DIRECTOR Historical Provider LAB BLOOD ORDERABLES Mariaa l Result Performing Organization Address [facility] de Phone Number HISTORICAL RESULTS * Urinalysis (04/23/2015 11:38 AM REIMBURSEMENT DIRECTOR) Color, ur Yellow Yellow HISTORICAL RESULTS Clarity, [...] HISTORICAL RESULTS Urine 04/23/2015 11:3 8 AM REIMBURSEMENT DIRECTOR Historical Provider LAB BLOOD ORDERABLES Mraiaa l Result Performing Organization Address [facility] de Phone Number HISTORICAL RESULTS * DISCHARGE LABORATORY CUMULATIVE REPORT (04/23/2015) Narrative 04/23/2015 Ordered by an unspecified provider. us Historical Provider LAB BLOOD ORDERABLES Mariaa l Result documented in this encounter Visit Diagnoses Diagnosis Other chronic pain Spondylosis of lumbosacral region without myelopathy or radiculopathy Personal history of urinary calculi Personal history of nicotine dependence documented in this encounter Care Teams Vice President Of Engineering Relationship Specialty Start Date End Date Alberto Stanton PCP - General 07/03/11 08/30/16 documented as of this encounter
--- OUTSIDE RECORDS SUMMARY | 2024-06-14 23:36 | XMS_ITS | Encounter Summary ---
Author Organization [facility] Medical Group Address [address] [place] [address] Care Team Providers Care Mailing Specialist Name Role Phone Alberto Stanton Primary Care Provider Unavailabl e Encounter Details Date Type Department Care Team (Late st Contact Info) Description 10/06/2016 Orders Only [facility] [address] [place] [address] 1[address] [place] [address] Jimenez Mckeon MD [address] [address] Social History Tobacco Use Types Packs/Day Years Used Date Smoking Tobacco: Heavy Smoker Comments:Smoking History Pac ks/day: 2 Packs Alcohol Use Standard Drinks/Week Comments No 0 (1 standard drink = 0.6 oz pur e alcohol) Sex and Gender Information Value Date Recorded Sex Assigned at Not on file Legal Sex Male 12:56 AM DRAFTER CARTOGRAPHIC Gender Identity Not on file Sexual Orientation [...] Res ult [facility] ([facility]) [address] [facility] Department of Laboratories [place], [place] [id number] documented in this encounter Visit Diagnoses Not on filedocumented in this encounter Care Teams Mailing Specialist Relationship Specialty Start Date End Date Alberto Stanton PCP - General 08/31/16 05/01/17 documented as of this encounter
--- OUTSIDE RECORDS SUMMARY | 2024-06-14 23:36 | XMS_ITS | Encounter Summary ---
Author Organization [facility] Healthcare Address [address] [place] [address] Care Team Providers Care Linen Room Custodian Name Role Phone Alberto Stanton Primary Care Provider Unavailabl e Encounter Details Date Type Department Care Team (Late st Contact Info) Description 06/08/2016 9:02 PM AUTO BODY REPAIRMAN - 06/08/2016 10:43 PM AUTO BODY REPAIRMAN Hospital Encounter [facility] Uriah Avila MD [address] [place] [id number] Abdominal pain; Gastro-esophageal reflux disease without esophagitis; [...] CONTRAST, STONE PROTOCOL Routine 06/08/2016 9:43 PM AUTO BODY REPAIRMAN SERUM ESTIMATED GLOMERULAR FILTRATION RATE Routine 06/08/2016 9:30 PM AUTO BODY REPAIRMAN PLASMA COMPREHENSIVE METABOLIC PANEL Routine 06/08/2016 9:30 PM AUTO BODY REPAIRMAN BLOOD CELL COUNT (CBC) Routine 7 9:30 PM AUTO BODY REPAIRMAN BLOOD CELL MORPHOLOGIC EXAM Routine 06/08/2016 9:30 PM AUTO BODY REPAIRMAN URINALYSIS Routine 06/08/2016 8:06 PM AUTO BODY REPAIRMAN DISCHARGE LABORATORY CUMULATIVE REPORT 06/08/2016 documented in this encounter Results * RENAL COMPUTED TOMOGRAPHY (CT) WITHOUT CONTRAST, STONE PROTOCOL (06/08/2016 9:43 PM AUTO BODY REPAIRMAN) Anatomical Region Laterality Modality N/A Computed Tomogra phy 06/08/2016 9:43 PM AUTO BODY REPAIRMAN Narrative 06/09/2016 1:33 PM AUTO BODY REPA[place] ??[id number] ??Acc#: ??[id number] DATE OF EXAM: ??Jun ??2016 CLINICAL HISTORY: [...] ??URIAH LANGSTON Requesting Fax: ??-- Attending Fax: ??[phone] Attending ID: ??[id number] Requesting ID: ??[id number] Report To 1 ID: ??[id number] Report To 1 Name: ??URIAH LANGSTON Report To 1 FAX: ??-- NextGen Order #: Procedure Note Provider, MD Emmie - 10/10/[address] [place] [id number] Acc#: [id number] DATE OF EXAM: Jun 08 2016 CLINICAL [...] LANGSTON Requesting Fax: -- Attending Attending ID: [id number] Requesting ID: [id number] Report To 1 ID: [id number] Report To 1 Name: URIAH LANGSTON Report To 1 FAX: -- [facility] Order #: us Historical Provider IMG CT PROCEDURES Final R esult * (ABNORMAL) Plasma comprehensive metabolic panel (06/08/2016 9:30 PM AUTO BODY REPAIRMAN) Sodium 141 135 - 145 mmol/L CDR [...] CDR HISTORICAL RESULTS Plasma 06/08/2016 9:30 PM AUTO BODY REPAIRMAN Historical Provider LAB BLOOD ORDERABLES Mariaa l Result CDR HISTORICAL RESULTS * Blood cell count (CBC) (06/08/2016 9:30 PM AUTO BODY REPAIRMAN) WBC 5.2 3.8 - 9.8 K/cumm CDR [...] RESULTS Blood specimen (specimen) 06/08/2016 9:30 PM AUTO BODY REPAIRMAN us Historical Provider LAB BLOOD ORDERABLES Mariaa rosado Result CDR HISTORICAL RESULTS * (ABNORMAL) Blood cell morphologic exam (06/08/2016 9:30 PM AUTO BODY REPAIRMAN) Neutrophils 61.1 44.0 - 80.0 % CDR [...] RESULTS Blood specimen (specimen) 06/08/2016 9:30 PM AUTO BODY REPAIRMAN us Historical Provider LAB BLOOD ORDERABLES Mariaa rosado Result Performing Organization Address [facility] de Phone Number CDR HISTORICAL RESULTS * Serum estimated glomerular filtration rate (06/08/2016 9:30 PM AUTO BODY REPAIRMAN) eGFR >60 ml/min/1.7 3 m2 CDR HISTORICAL RESULTS Comment: Interpretive Data Reference Interval Normal ?>/= 90 mL/min/1.73m2 Mildly decreased* ? 60 - 89 mL/min/1.73m2 Mildly to moderately decreased ?45 - 59 mL/min/1.73m2 Moderately to severely decreased ??30 - 44 mL/min/1.73m2 Severely decreased ?15 - 29 mL/min/1.73m2 Kidney Failure ?< 15 ??mL/min/1.73m2 *Relative to young adult level If -[place] multiply value by 1.16. Estimated glomerular filtration [...] last reviewed 2015. Serum 06/08/2016 9:30 PM AUTO BODY REPAIRMAN us Historical Provider LAB BLOOD ORDERABLES Mariaa rosado Result Performing Organization Address [facility] Co de Phone Number CDR HISTORICAL RESULTS * Urinalysis (06/08/2016 8:06 PM AUTO BODY REPAIRMAN) Color, ur Yellow Yellow CDR HISTOR ICAL [...] CDR HISTORICAL RESULTS Urine 06/08/2016 8:06 PM AUTO BODY REPAIRMAN Historical Provider LAB BLOOD ORDERABLES Mariaa l Result CDR HISTORICAL RESULTS * DISCHARGE LABORATORY CUMULATIVE REPORT (06/08/2016) Narrative 06/08/2016 Ordered by an unspecified provider. us Historical Provider MD LAB BLOOD ORDERABLES Mariaa l Result documented in this encounter Visit Diagnoses Diagnosis Abdominal pain Abdominal pain, unspecified site Gastro-esophageal reflux disease without esophagitis Personal history of urinary calculi documented in this encounter Care Teams Linen Room Custodian Relationship Specialty Start Date End Date Alberto Stanton PCP - General 07/03/11 08/30/16 documented as of this encounter
--- OUTSIDE RECORDS SUMMARY | 2024-06-14 23:36 | XMS_ITS | Encounter Summary ---
Author Organization [facility] Medical Group Address [address] [place] [address] Care Team Providers Care Special Assemblies Supervisor Name Role Phone Alberto Stanton Primary Care Provider Unavailabl e Encounter Details Date Type Department Care Team (Late st Contact Info) Description 10/06/2016 Orders Only [facility] [address] [place] [address] 1st [place] [address] Jimenez Mckeon MD [address] [place] [address] Social History Tobacco Use Types Packs/Day Years Used Date Smoking Tobacco: Heavy Smoker Comments:Smoking History Pac ks/day: 2 Packs Alcohol Use Standard Drinks/Week Comments No 0 (1 standard drink = 0.6 oz pur e alcohol) Sex and Gender Information Value Date Recorded Sex Assigned at Not on file Legal Sex Male 12:56 AM 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 Department [place] [address] documented in this encounter Visit Diagnoses Not on filedocumented in this encounter Care Teams Special Assemblies Supervisor Relationship Specialty Start Date End Date Alberto Stanton PCP - General 08/31/16 05/01/17 documented as of this encounter
--- OUTSIDE RECORDS SUMMARY | 2024-06-14 23:36 | XMS_ITS | Encounter Summary ---
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
--- OUTSIDE RECORDS SUMMARY | 2024-06-14 23:36 | XMS_ITS | Encounter Summary ---
Author Organization [facility] Medical Group Address [address] [place] [address] Care Team Providers Care Sap Senior Developer Name Role Phone Alberto Stanton Primary Care Provider Unavailabl e Encounter Details Date Type Department Care Team (Late st Contact Info) Description 10/06/2016 Orders Only [facility] [address] [place] [address] 1st [place] [address] Jimenez Mckeon MD [address] [place] [address] Social History Tobacco Use Types Packs/Day Years Used Date Smoking Tobacco: Heavy Smoker Comments:Smoking History Pac ks/day: 2 Packs Alcohol Use Standard Drinks/Week Comments No 0 (1 standard drink = 0.6 oz pur e alcohol) Sex and Gender Information Value Date Recorded Sex Assigned at Not on file Legal Sex Male 12:56 AM 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
--- OUTSIDE RECORDS SUMMARY | 2024-06-14 23:36 | XMS_ITS | Encounter Summary ---
Author Organization [facility] Healthcare Address [address] [place] [address] Care Team Providers Care Nurse Private Duty Name Role Phone Alberto Stanton Primary Care Provider Unavailabl e Encounter Details Date Type Department Care Team (Late st Contact Info) Description 11/12/2016 8:57 AM CDT - 11/12/2016 11:59 PM CDT Hospital Encounter [facility] OP INTERIM Alexia Redd MD [address] [facility] [address] [address] Discharge Disposition: Discharge to home or self care Social History Tobacco Use Types Packs/Day Years Used Date Smoking Tobacco: Heavy Smoker Comments:Smoking History Pac ks/day: 2 Packs Alcohol Use Standard Drinks/Week Comments No 0 (1 standard drink = 0.6 oz pur e alcohol) Sex and Gender Information Value Date Recorded Sex Assigned at Not on file Legal Sex Male 12:56 AM TRANSPORTATION JOB TITLES Gender Identity Not on file Sexual Orientation [...] Narrative 11/12/2016 3:04 PM CDT US Kidney(s) 76185 ??Acc#: ??[id number] DATE OF EXAM: ??Nov 12 2016 ?? ADDENDUM #1 US Kidney(s) 34628 HISTORY: BILATERAL KIDNEY STONES. TECHNIQUE: Longitudinal transverse [...] ORIGINAL REPORT - ADDENDUM ABOVE US Kidney(s) 95146 HISTORY: BILATERAL KIDNEY STONES. TECHNIQUE: Longitudinal transverse [...] REDD Requesting: ??DR ALEXIA REDD Requesting Fax: ??[phone] Attending Fax: ??[phone] Attending ID: ??[id number] Requesting ID: ??[id number] Report To 1 ID: ??[id number] Report To 1 Name: ??DR ALEXIA REDD Report To 1 FAX: ??[phone] NextGen Order #: ?? Procedure Note Miscellaneous, Not In File / Provider, MD Emmie - 11/15/2016 Kidney(s) 87854 Acc#: [id number] DATE OF EXAM: Nov 12 2016 ADDENDUM #1 Kidney(s) 20188 HISTORY: BILATERAL KIDNEY STONES. TECHNIQUE: Longitudinal transverse [...] ORIGINAL REPORT - ADDENDUM ABOVE US Kidney(s) 80155 HISTORY: BILATERAL KIDNEY STONES. TECHNIQUE: Longitudinal transverse [...] DR ALEXIA REDD Requesting Attending Attending ID: [id number] Requesting ID: [id number] Report To 1 ID: [id number] Report To 1 Name: DR ALEXIA REDD Report To 1 FAX: [phone] NextGen Order #: us Not In File Miscellaneous IMG US PROCEDURES Mariaa l Result * XR Abdomen AP 1V (11/12/2016 2:12 PM CDT) Anatomical Region Laterality Modality Body N/A Radiographic Corin ging 11/12/2016 2:12 PM CDT Narrative 11/12/2016 2:12 PM CDT XR KUB ?[id number] ??Acc#: ??[id number] DATE OF EXAM: ??Nov 12 2016 ?? XR KUB ?27088 HISTORY: BILATERAL KIDNEY STONES. COMPARISON: None available. [...] REDD Requesting: ??DR ALEXIA REDD Requesting Fax: ??[phone] Attending Fax: ??[phone] Attending ID: ??[id number] Requesting ID: ??[id number] Report To 1 ID: ??[id number] Report To 1 Name: ??DR ALEXIA REDD Report To 1 FAX: ??[phone] NextGen Order #: ?? Procedure Note Miscellaneous, Not In File / Provider, MD Emmie - 11/12/2016 XR KUB 04154 Acc#: [id number] DATE OF EXAM: Nov 12 2016 XR KUB 28846 HISTORY: BILATERAL KIDNEY STONES. COMPARISON: None available. [...] on: Nov 12 2016 10:13A Transcribed by: [facility] On: Nov 12 2016 10:11A Approved Electronically by: BEV PANDYA M.D. on: Nov 12 2016 10:11A Ordering DR: DR ALEXIA REDD Attending DR: DR ALEXIA REDD Attending: DR ALEXIA REDD Requesting: DR ALEXIA REDD Requesting Attending Attending ID: [id number] Requesting ID: [id number] Report To 1 ID: [id number] Report To 1 Name: DR ALEXIA REDD Report To 1 FAX: [phone] NextGen Order #: us Not In File Miscellaneous IMG XR PROCEDURES Mariaa l Result documented in this encounter Visit Diagnoses Not on filedocumented in this encounter Care Teams Nurse Private Duty Relationship Specialty Start Date End Date Alberto Stanton PCP - General 08/31/16 05/01/17 documented as of this encounter
--- OUTSIDE RECORDS SUMMARY | 2024-06-14 23:37 | XMS_ITS | Encounter Summary ---
Author Organization [facility] Healthcare Address [address] [place] [address] Care Team Providers Care Aircraft Worker Name Role Phone Alberto Stanton Primary Care Provider Unavailabl e Encounter Details Date Type Department Care Team (Late st Contact Info) Description 05/22/2011 10:31 AM ADJUNCT INSTRUCTOR CHEMISTRY - 05/22/2011 11:59 PM ADJUNCT INSTRUCTOR CHEMISTRY Hospital Encounter [facility] CLINCONV Alberto Stanton Weight loss Social History Tobacco Use Types Packs/Day Years Used Date Smoking Tobacco: Never Assessed Sex and Gender Information Value Date Recorded Sex Assigned at Not on file Legal Sex Male 12:56 AM ADJUNCT INSTRUCTOR 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
--- OUTSIDE RECORDS SUMMARY | 2024-06-14 23:37 | XMS_ITS | Encounter Summary ---
Author Organization [facility] Healthcare Address [address] [place] [address] Care Team Providers Care Heavy Equipment Operator/Paver Name Role Phone Alberto Stanton Primary Care Provider Unavailabl e Encounter Details Date Type Department Care Team (Late st Contact Info) Description 11/13/2011 9:55 AM CDT - 11/13/2011 12:40 PM CDT Hospital Encounter [facility] Kevin Jarquin MD [address] [place] [address] [address] [place] [address] Special screening for malignant neoplasms, colon; Internal hemorrhoids; Esophageal reflux Social History Tobacco Use Types Packs/Day Years Used Date Smoking Tobacco: Heavy Smoker Comments:Smoking History Pac ks/day: 2 Packs Alcohol Use Standard Drinks/Week Comments Yes 0 (1 standard drink = 0.6 oz pur e alcohol) Sex and Gender Information Value Date Recorded Sex Assigned at Not on file 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 Admit Date: 11/13/2011 Dict.: Kevin Carpio M.D. Disch. Date: 11/13/2011 PROCEDURE PERFORMED: Colonoscopy. HISTORY: 66-year-old male with reflux symptomatology and needs a screening colonoscopy and has had symptomatic hemorrhoidal disease treated by [facility] in 2008. PHYSICAL EXAMINATION: Well-developed male. Lungs are clear. Cardiovascular examination was unremarkable. PROCEDURE: Colonoscopy was performed with the [employer] video endoscope. On digital exam he has [...] normal. Kevin Carpio M.D. DR/lanny Ocasio #: [id number] TD: 11/14/2011 11:01 CC: Alberto Stanton M.D. [...] CDT PROCEDURE REPORT Patient: SAMUEL HUFFMAN Account: [id number] Room No: : 1945 Patient Type: SDS Attend.: Kevin Carpio M.D. Admit Date: 11/13/2011 Dict.: Kevin Carpio M.D. Disch. Date:11/13/2011 PROCEDURE PERFORMED: Colonoscopy. HISTORY: 66-year-old male with reflux symptomatology and needs ascreening colonoscopy and has had symptomatic hemorrhoidal disease treated by [facility] [id number]. PHYSICAL EXAMINATION: Well-developed male. Lungs are clear.Cardiovascular examination was unremarkable. PROCEDURE: Colonoscopy was performed with the [employer] video endoscope.On digital exam he has grade [...] M.D. DR/lanny TD: 11/14/2011 11:01 CC: Alberto tSanton M.D. Authenticated by Kevin Carpio MD On 11/15/2011 11:45:52 AM us Historical Provider ENDOSCOPY PROCEDURES Mariaa l Result documented in this encounter Visit Diagnoses Diagnosis Special screening for malignant neoplasms, colon Internal hemorrhoids Internal hemorrhoids without mention of complication Esophageal reflux documented in this encounter Care Teams Heavy Equipment Operator/Paver Relationship Specialty Start Date End Date Alberto Stanton PCP - General 07/03/11 08/30/16 documented as of this encounter
--- OUTSIDE RECORDS SUMMARY | 2024-06-14 23:37 | XMS_ITS | Encounter Summary ---
Author Organization [facility] Healthcare Address [address] [place] [address] Care Team Providers Care Laborer Egg Producing Farm Name Role Phone Alberto Stanton Primary Care Provider Unavailabl e Encounter Details Date Type Department Care Team (Late st Contact Info) Description 12/13/2011 7:45 AM CDT - 12/13/2011 9:40 AM CDT Hospital Encounter [facility] Kevin Jarquin MD [address] [place] [address] [address] [place] [address] Internal hemorrhoids Social History Tobacco Use Types Packs/Day Years Used Date Smoking Tobacco: Heavy Smoker Comments:Smoking History Pac ks/day: 2 Packs Alcohol Use Standard Drinks/Week Comments Yes 0 (1 standard drink = 0.6 oz pur e alcohol) Sex and Gender Information Value Date Recorded Sex Assigned at Not on file Legal 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
--- OUTSIDE RECORDS SUMMARY | 2024-06-14 23:37 | XMS_ITS | Encounter Summary ---
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 Requesting ID: ??[id number] Report To 1 ID: ??[id number] Report To 1 Name: ??DR HERNANDO DE LA CRUZ Report To 1 FAX: ??-- NextGen Order #: Procedure Note Provider, MD Emmie - 09/23/[place] [id number] Acc#: [id number] DATE OF EXAM: Sep 15 2014 CLINICAL [...] Sep 15 20141:[id number] Attending: , Requesting: DR HERNANOD DE LA CRUZ Requesting Fax: -- Attending Fax: -- Attending ID: Requesting ID: [id number] Report To 1 ID: [id number] Report To 1 Name: DR HERNANDO DE LA CRUZ Report To 1 FAX: -- NextGen Order #: Historical Provider MD CHARLES CT PROCEDURES Final R esult documented in this encounter Visit Diagnoses Diagnosis Solitary pulmonary nodule Thoracic aortic ectasia (CMS/HCC) (HCC) Thoracic aortic ectasia Diaphragmatic hernia Diaphragmatic hernia without mention of obstruction or gangrene Calculus of kidney documented in this encounter Care Teams Licensed Reactor Operator Relationship Specialty Start Date End Date Hernando De La Cruz PCP - General 07/03/11 08/30/16 documented as of this encounter
--- OUTSIDE RECORDS SUMMARY | 2024-06-14 23:37 | XMS_ITS | Encounter Summary ---
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
--- OUTSIDE RECORDS SUMMARY | 2024-06-14 23:37 | XMS_ITS | Encounter Summary ---
Author Organization [facility] Facility Care Team Providers Care Grill Cook Name Role Phone Alberto Stanton Primary Care Provider Unavailabl e Encounter Details Date Type Department Care Team (Late st Contact Info) Description 07/03/2011 4:14 PM AIRCRAFT ENGINE SPECIALIST [facility] [place] [address] [place] [address] Rheumatoid arthritis (HCC) Social History Tobacco Use Types Packs/Day Years Used Date Smoking Tobacco: Heavy Smoker Comments:Smoking History Pac ks/day: 2 Packs Alcohol Use Standard Drinks/Week Comments Yes 0 (1 standard drink = 0.6 oz pur e alcohol) Sex and Gender Information Value Date Recorded Sex Assigned at Not on file Legal Sex Male 12:56 AM 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
--- OUTSIDE RECORDS SUMMARY | 2024-06-14 23:37 | XMS_ITS | Encounter Summary ---
Author Organization 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 SHYLA ABBASI M.D. FINAL REPORT The radiology attending physician has personally reviewed this study, and has reviewed and/or edited this written report and agrees with it. ACC# ??Date Time ??Exam [id number] Sep 16, 2014 16:25:[id number] Abd & Pelvis wo EXAMINATION: ?? [...] DELANEY M.D. on Sep 16 2014 ??5:03P [id number] Procedure Note Provider, MD Emmie - 09/23/2016 ADITHYA DELANEY M.D. SHYLA ABBASI M.D. FINAL REPORT The radiology attending physician has personally reviewed this study, and has reviewed and/or edited this written report and agrees with it. ACC# Date Time Exam [id number] Sep 16, 2014 16:25:[address] Abd & Pelvis wo EXAMINATION: ABDOMEN [...] DELANEY M.D. on Sep 16 2014 5:03P [id number] Historical Provider MD CHARLES CT PROCEDURES Final R esult documented in this encounter Visit Diagnoses Diagnosis Calculus of kidney Hypertrophy of prostate without urinary obstruction and other lower urinary tract symptoms (LUTS) Other specified disorders of prostate Acquired cyst of kidney Solitary pulmonary nodule Disorder of liver Unspecified disorder of liver documented in this encounter Care Teams Mason Tender Restoration Labor Relationship Specialty Start Date End Date Alberto Stanton PCP - General 07/03/11 08/30/16 documented as of this encounter
--- OUTSIDE RECORDS SUMMARY | 2024-06-14 23:37 | XMS_ITS | Encounter Summary ---
Author Organization [facility] Healthcare Address [address] [place] [address] Care Team Providers Care Cell Tender Name Role Phone Hernando De La Cruz Primary Care Provider Unavailabl e Encounter Details Date Type Department Care Team (Late st Contact Info) Description 07/03/2013 11:02 AM RETURN CLERK - 07/03/2013 11:59 PM RETURN CLERK Hospital Encounter [facility] CLINCONV Hernando De La [...] on file Legal Sex Male 12:56 AM RETURN CLERK Gender Identity Not on file Sexual [...] THYROXINE (T4), FREE Routine 07/03/2013 11:13 AM RETURN CLERK SERUM THYROID-STIMULATING HORMONE (TSH) Routine 07/03/2013 11:13 AM RETURN CLERK SERUM PROSTATE-SPECIFIC ANTIGEN (PSA) Routine 07/03/2013 11:13 AM RETURN CLERK SERUM LIPID PANEL Routine 07/03/2013 11: 13 AM RETURN CLERK SERUM HEPATIC FUNCTION PANEL Routine 07/03/2013 11:13 AM RETURN CLERK SERUM BASIC METABOLIC PANEL Routine 07/03/2013 11:13 AM RETURN CLERK BLOOD WBC CELL MORPHOLOGIC EXAM, AUTO Routine 07/03/2013 11:13 AM RETURN CLERK BLOOD ERYTHROCYTE SEDIMENTATION RATE (ESR) Routine 07/03/2013 11:13 AM RETURN CLERK BLOOD CELL COUNT (CBC) Routine 4 11:13 AM RETURN CLERK DISCHARGE LABORATORY CUMULATIVE REPORT Routine 07/03/2013 12:00 AM RETURN CLERK documented in this encounter Results * Blood erythrocyte sedimentation rate (ESR) (07/03/2013 11:13 AM RETURN CLERK) Erythrocyte sedimentation rate 1.0 0.0 - 20.0 mm/hr HISTORICAL RESULTS Blood specimen (specimen) 07/03/2013 11:13 AM RETURN CLERK us Hernando De La Cruz LAB BLOOD ORDERABLES Final Resul t HISTORICAL RESULTS * Serum thyroid-stimulating hormone (TSH) (07/03/2013 11:13 AM RETURN CLERK) TSH 0.41 0.35 - 4.80 mcIUnits/ml HISTORICAL RESULTS Serum 07/03/2013 11:1 3 AM RETURN CLERK Hernando Chan LAB BLOOD ORDERABLES Final Resul t HISTORICAL RESULTS * Serum prostate-specific antigen (PSA) (07/03/2013 11:13 AM RETURN CLERK) PSA 2.0 0.0 - 4.0 ng/ml HISTORICAL RESULTS Serum 07/03/2013 11:1 3 AM RETURN CLERK Hernando Chan LAB BLOOD ORDERABLES Final Resul t Performing Organization Address [facility] Co de Phone Number HISTORICAL RESULTS * Serum basic metabolic panel (07/03/2013 11:13 AM RETURN CLERK) BUN 22.0 6.0 - 23.0 mg/dl HISTORICAL [...] HISTORICAL RESULTS Serum 07/03/2013 11:1 3 AM RETURN CLERK Hernando Chan LAB BLOOD ORDERABLES Final Resul t Performing Organization Address City/[facility]/ZIP Co de Phone Number HISTORICAL RESULTS * Serum lipid panel (07/03/2013 11:13 AM RETURN CLERK) Cholesterol 162 mg/dl HISTORIC AL RESULTS Comment: [...] 300 MG/DL. Serum 07/03/2013 11:1 3 AM RETURN CLERK Hernando Raheem Dustin LAB BLOOD ORDERABLES Final Resul t Performing Organization Address City/[facility] Co de Phone Number HISTORICAL RESULTS * Serum thyroxine (T4), free (07/03/2013 11:13 AM RETURN CLERK) Pathologist [facility] Free T4 0.8 0.7 - 1.3 ng/dl HISTORICAL RESULTS Serum 07/03/2013 11:1 3 AM RETURN CLERK Hernando AppSociallyAshanti AGELON ? LAB BLOOD ORDERABLES Final Resul t HISTORICAL RESULTS * (ABNORMAL) Blood cell count (CBC) (07/03/2013 11:13 AM RETURN CLERK) WBC 11.8(H) 4.0 - 10.5 K/cumm HISTORICAL [...] RESULTS Blood specimen (specimen) 07/03/2013 11:13 AM RETURN CLERK Hernando AppSociallyAshanti Vizi Labs BLOOD ORDERABLES Final Resul t Performing Organization Address City/[facility] de Phone Number HISTORICAL RESULTS * (ABNORMAL) Blood WBC cell morphologic exam, auto (07/03/2013 11:13 AM RETURN CLERK) Lymphocytes 7.9(L) 25.0 - 33.0 % HISTORICAL [...] RESULTS Blood specimen (specimen) 07/03/2013 11:13 AM RETURN CLERK MintigoAshanti AGELON ? LAB BLOOD ORDERABLES Final Resul t Performing Organization Address City/State/[facility] de Phone Number HISTORICAL RESULTS * Serum hepatic function panel (07/03/2013 11:13 AM RETURN CLERK) AST 17 10 - 45 Units/L HISTORICAL [...] HISTORICAL RESULTS Serum 07/03/2013 11:1 3 AM RETURN CLERK us Hernando De La Cruz LAB BLOOD ORDERABLES Final Resul t Performing Organization Address [facility] de Phone Number HISTORICAL RESULTS * Discharge Laboratory Cumulative Report (07/03/2013 12:00 AM RETURN CLERK) 07/03/2013 Narrative HISTORICAL RESULTS - 07/05/2013 2:26 AM RETURN CLERK Patient No: [id number] ? [facility] Patient Name: SAMUEL HUFFMAN ?[facility] Healthcare Age: 68 YRS ?: 1945 ?Sex:M ?[address] )[phone] ?? Adm Dt: 07/03/2013 ?[place], [place] ??[address] Created: 07/05/2013 ??0226 ?? Pt. Type: R ? Discharge Dt: 07/03/2013 ? Pathologists: Darcie Herronlivia Lam Dr. Attend Dr: HERNANDO DE LA [...] ?? CONTINUED ?Page: ?? 1 Patient No: [id number] ? [facility] Patient Name: SAMUEL HUFFMAN ?[facility] Healthcare Age: 68 YRS ?: 1945 ?Sex:M ?[address] )[phone] ?? Adm Dt: 07/03/2013 ?[place], [place] ??[address] Created: 07/05/2013 ??0226 ?? Pt. Type: R [...] ?? CONTINUED ?Page: ?? 2 Patient No: [id number] ? [facility] Patient Name: SAMUEL HUFFMAN ?[facility] Age: 68 YRS ?: 1945 ?Sex:M ?[address] )[phone] ?? Adm Dt: 07/03/2013 ?[place] ??[id number] Created: 07/05/2013 ??0226 ?? Pt. Type: R [...] ?? CONTINUED ?Page: ?? 3 Patient No: [id number] ? [facility] Patient Name: SAMUEL HUFFMAN ?[facility] Healthcare Age: 68 YRS ?: 1945 ?Sex:M ?[address] )[phone] ?? Adm Dt: 07/03/2013 ?[place], [place] ??[id number] Created: 07/05/2013 ??0226 ?? Pt. Type: R [...] ?? CONTINUED ?Page: ?? 4 Patient No: [id number] ? [facility] Patient Name: SAMUEL HUFFMAN ?[facility] Healthcare Age: 68 YRS ?: 1945 ?Sex:M ?[address] )[phone] ?? Adm Dt: 07/03/2013 ?[place], [place] ??[address] Created: 07/05/2013 ??0226 ?? Pt. Type: R [...] eruption documented in this encounter Care Teams Cell Tender Relationship Specialty Start Date End Date Hernando De La Cruz PCP - General 07/03/11 08/30/16 documented as of this encounter
--- OUTSIDE RECORDS SUMMARY | 2024-06-14 23:37 | XMS_ITS | Encounter Summary ---
Author Organization [facility] Healthcare Address [address] [place] [address] Care Team Providers Care Veterinary Surgery Technologist Name Role Phone Alberto Stanton Primary Care Provider Unavailabl e Encounter Details Date Type Department Care Team (Late st Contact Info) Description 05/15/2012 3:17 PM TUMBLING MACHINE OPERATOR - 05/15/2012 11:59 PM TUMBLING MACHINE OPERATOR Hospital Encounter [facility] CLINCONV Alberto Stanton Lumbosacral [...] on file Legal Sex Male 12:56 AM TUMBLING MACHINE OPERATOR Gender Identity Not on file [...] thigh documented in this encounter Care Teams Veterinary Surgery Technologist Relationship Specialty Start Date End Date Alberto Stanton PCP - General 07/03/11 08/30/16 documented as of this encounter
--- OUTSIDE RECORDS SUMMARY | 2024-06-14 23:37 | XMS_ITS | Encounter Summary ---
Author Organization [facility] Healthcare Address [address] [place] [address] Care Team Providers Care Ice Cream Maker Name Role Phone Hernando De La Cruz Primary Care Provider Unavailabl e Encounter Details Date Type Department Care Team (Late st Contact Info) Description 04/23/2014 8:56 AM ENVIRONMENTAL SERVICES SUPERVISOR - 04/23/2014 11:59 PM ENVIRONMENTAL SERVICES SUPERVISOR Hospital Encounter [facility] CLINCONV Hernando De [...] file Legal Sex Male 12:56 AM ENVIRONMENTAL SERVICES SUPERVISOR Gender Identity Not on file Sexual [...] BASIC METABOLIC PANEL Routine 04/23/2014 9:05 AM ENVIRONMENTAL SERVICES SUPERVISOR BLOOD WBC CELL MORPHOLOGIC EXAM, AUTO Routine 04/23/2014 9:05 AM ENVIRONMENTAL SERVICES SUPERVISOR URINALYSIS Routine 04/23/2014 9:05 AM ENVIRONMENTAL SERVICES SUPERVISOR BLOOD CELL COUNT (CBC) Routine 04/23/2014 9:05 AM ENVIRONMENTAL SERVICES SUPERVISOR DISCHARGE LABORATORY CUMULATIVE REPORT Routine 04/23/2014 12:00 AM ENVIRONMENTAL SERVICES SUPERVISOR documented in this encounter Results * Urinalysis (04/23/2014 9:05 AM ENVIRONMENTAL SERVICES SUPERVISOR) Color, ur YELLOW YELLOW HISTORICAL RESULTS Clarity, [...] NEGATIVE HISTORICAL RESULTS Urine 04/23/2014 9:05 AM ENVIRONMENTAL SERVICES SUPERVISOR Hernando De La Cruz LAB BLOOD ORDERABLES Final Resul t HISTORICAL RESULTS * (ABNORMAL) Serum basic metabolic panel (04/23/2014 9:05 AM ENVIRONMENTAL SERVICES SUPERVISOR) BUN 25.0(H) 6.0 - 23.0 mg/dl HISTORICAL [...] mg/dl HISTORICAL RESULTS Serum 04/23/2014 9:05 AM ENVIRONMENTAL SERVICES SUPERVISOR Hernando Piñata LabsAshanti [employer] LAB BLOOD ORDERABLES Final Resul t Performing Organization Address City/[facility] de Phone Number HISTORICAL RESULTS * Blood cell count (CBC) (04/23/2014 9:05 AM ENVIRONMENTAL SERVICES SUPERVISOR) WBC 7.2 4.0 - 10.5 K/cumm HISTORICAL [...] RESULTS Blood specimen (specimen) 04/23/2014 9:05 AM ENVIRONMENTAL SERVICES SUPERVISOR UPEKAshanti [employer] LAB BLOOD ORDERABLES Final Resul t Performing Organization Address City/[facility] Co de Phone Number HISTORICAL RESULTS * (ABNORMAL) Blood WBC cell morphologic exam, auto (04/23/2014 9:05 AM ENVIRONMENTAL SERVICES SUPERVISOR) Lymphocytes 21.0(L) 25.0 - 33.0 % HISTORICAL [...] RESULTS Blood specimen (specimen) 04/23/2014 9:05 AM ENVIRONMENTAL SERVICES SUPERVISOR us Hernando De La Cruz LAB BLOOD ORDERABLES Final Resul t HISTORICAL RESULTS * Discharge Laboratory Cumulative Report (04/23/2014 12:00 AM ENVIRONMENTAL SERVICES SUPERVISOR) 04/23/2014 Narrative HISTORICAL RESULTS - 04/25/2014 2:39 AM ENVIRONMENTAL SERVICES SUPERVISOR Patient No: [id number] ? [facility] Patient Name: SAMUEL HUFFMAN ?[facility] Healthcare Age: 68 YRS ?: 1945 ?Sex:M ?[address] )[phone] ?? Adm Dt: 04/23/2014 ?[place] ??[address] Created: 04/25/2014 ??0239 ?? Pt. Type: R [...] ?? CONTINUED ?Page: ?? 1 Patient No: [id number] ? [facility] Patient Name: SAMUEL HUFFMAN ?[facility] Healthcare Age: 68 YRS ?: 1945 ?Sex:M ?[address] )[phone] ?? Adm Dt: 04/23/2014 ?[place] ??[address] Created: 04/25/2014 ??0239 ?? Pt. Type: R [...] ?? CONTINUED ?Page: ?? 2 Patient No: [id number] ? [facility] Patient Name: SAMUEL HUFFMAN ?[facility] Age: 68 YRS ?: 1945 ?Sex:M ?[address] )[phone] ?? Adm Dt: 04/23/2014 ?[place] ??[address] Created: 04/25/2014 ??0239 ?? Pt. Type: R [...] cystitis documented in this encounter Care Teams Ice Cream Maker Relationship Specialty Start Date End Date Hernando De La Cruz PCP - General 07/03/11 08/30/16 documented as of this encounter
--- OUTSIDE RECORDS SUMMARY | 2024-06-14 23:37 | XMS_ITS | Encounter Summary ---
Author Organization [facility] Facility Care Team Providers Care Early Childhood Director Name Role Phone Alberto Stanton Primary Care Provider Unavailabl e Encounter Details Date Type Department Care Team (Latest Contact Info) Description 08/14/2014 4:33 PM CDT - 08/14/2014 9:16 PM CDT Hospital Encounter [facility] CLINCONV Lui Thakkar MD [address] [facility] [address] [place] [address] Calculus of kidney Social History Tobacco Use Types Packs/Day Years Used Date Smoking Tobacco: Heavy Smoker Comments:Smoking History Pac ks/day: 2 Packs Alcohol Use Standard Drinks/Week Comments Yes 0 (1 standard drink = 0.6 oz pur e alcohol) Sex and Gender Information Value Date Recorded Sex Assigned at Not on file Legal Sex Male 12:56 AM ACID CONDITIONER Gender Identity Not on file Sexual Orientation [...] M.D. FINAL REPORT ACC# ??Date Time ??Exam [id number] Aug 14, 2014 18:13:[address] Abd & Pelvis wo EXAMINATION: ?CT [...] preliminary results were communicated by the teleradiologist line construction engineer, Dr. Radha Armas, via facsimile at 6:44 p.m. on 08/14/2014. Requested By: Dictated By: ?? JAD RAMIRES M.D. ??on Aug 15 2014 ??9:33A This document has been electronically signed by: JAD RAMIRES M.D. on Aug 15 2014 ??9:33A [id number] Procedure Note Provider, MD Emmie - 09/23/2016 JAD RAMIRES M.D. FINAL REPORT ACC# Date Time Exam [id number] Aug 14, 2014 18:13:[address] Abd & Pelvis wo EXAMINATION: CT [...] preliminary results were communicated by the teleradiologist line construction engineer, Dr. Radha Armas, via facsimile at 6:44 p.m. on 08/14/2014. Requested By: Dictated By: JAD RAMIRES M.D. on Aug 15 2014 9:33A This document has been electronically signed by: JAD RAMIRES M.D. on Aug 15 2014 9:33A [id number] us Historical Provider MD CHARLSE CT PROCEDURES Final R esult * (ABNORMAL) [...] (specimen) 08/14/2014 5:50 PM CDT Pauline Rodriguez [facility] LAB BLOOD ORDERABLES Final [facility] Performing Organization Address [facility] de Phone Number HISTORICAL RESULTS * (ABNORMAL) Plasma basic metabolic panel (08/14/2014 5:50 PM CDT) Pathologist [facility] eGFR >60 ml/min/1.7 3 m2 HISTORICAL RESULTS [...] RESULTS Plasma 08/14/2014 5:50 PM CDT Pauline Christine LAB BLOOD ORDERABLES Final [facility] Performing Organization Address [facility] de Phone Number HISTORICAL RESULTS * (ABNORMAL) Urinalysis (08/14/2014 5:05 PM CDT) [facility] Specific gravity, ur 1.020 1.000 - 1.030 [...] kidney documented in this encounter Care Teams Early Childhood Director Relationship Specialty Start Date End Date Alberto Stanton PCP - General 07/03/11 08/30/16 documented as of this encounter
--- OUTSIDE RECORDS SUMMARY | 2024-06-14 23:37 | XMS_ITS | Encounter Summary ---
Author Organization [facility] Healthcare Address [address] [place] [address] Care Team Providers Care Welder/Installer Name Role Phone Alberto Stanton Primary Care [...] file Legal Sex Male 12:56 AM PANEL MONITOR Gender Identity Not on file Sexual Orientation [...] arteries documented in this encounter Care Teams Welder/Installer Relationship Specialty Start Date End Date Alberto Stanton PCP - General 07/03/11 08/30/16 documented as of this encounter
--- OUTSIDE RECORDS SUMMARY | 2024-06-14 23:37 | XMS_ITS | Encounter Summary ---
Author Organization [facility] Facility Care Team Providers Care Rand Cementer Name Role Phone Alberto Stanton Primary Care Provider Unavailabl e Encounter Details Date Type Department Care Team (Late st Contact Info) Description 10/24/2011 1:17 PM CDT Hospital Encounter [facility] Brenda Thomason MD [address] [place] [address] Personal history of urinary calculi Social History Tobacco Use Types Packs/Day Years Used Date Smoking Tobacco: Heavy Smoker Comments:Smoking History Pac ks/day: 2 Packs Alcohol Use Standard Drinks/Week Comments Yes 0 (1 standard drink = 0.6 oz pur e alcohol) Sex and Gender Information Value Date Recorded Sex Assigned at Not on file Legal Sex Male 12:56 AM ICU SPECIALIST Gender Identity Not on file Sexual [...] calculi documented in this encounter Care Teams Rand Cementer Relationship Specialty Start Date End Date Alberto Stanton PCP - General 07/03/11 08/30/16 documented as of this encounter
--- OUTSIDE RECORDS SUMMARY | 2024-06-14 23:37 | XMS_ITS | Encounter Summary ---
Author Organization [facility] Healthcare Address [address] [place] [address] Care Team Providers Care Sales Trainee Name Role Phone Alberto Stanton Primary Care [...] on file Legal Sex Male 12:56 AM DETECTIVE PRIVATE EYE Gender Identity Not on file Sexual Orientation [...] rupture documented in this encounter Care Teams Sales Trainee Relationship Specialty Start Date End Date Alberto Stanton PCP - General 07/03/11 08/30/16 documented as of this encounter
--- OUTSIDE RECORDS SUMMARY | 2024-06-14 23:37 | XMS_ITS | Encounter Summary ---
Author Organization [facility] Facility Care Team Providers Care Jukebox Routeman Name Role Phone Alberto Stanton Primary Care Provider Unavailabl e Encounter Details Date Type Department Care Team (Late st Contact Info) Description 11/03/2014 7:35 AM CDT - 11/03/2014 12:35 PM CDT Hospital Encounter [facility] Frank Turcios MD [address] [place] [address] Calculus of ureter; Urethral stricture; Accidental laceration [...] on file Legal Sex Male 12:56 AM EXERCISE INSTRUCT Gender Identity Not on file Sexual Orientation [...] 12:00 AM CDT Patient: SAMUEL HUFFMAN Account: [id number] Room No: : 1945 Proc. Date: 11/03/2014 Surgeon: FRANK MANRIQUE MD Admit Date: 11/03/2014 Disch. Date: 11/03/2014 Patient Type: SDS PREOPERATIVE DIAGNOSIS: Left obstructing nephrolithiasis. POSTOPERATIVE DIAGNOSIS: Left obstructing nephrolithiasis. NAME OF PROCEDURE: 1. Cystoscopy. 2. Left ureteroscopy. 3. Left laser lithotripsy basket stone extraction of stone. 4. Left ureteral stent placement. SURGEON: Frank Manrique MD UTILITY MANAGER: Ezequiel Cooley MD ANESTHESIA: General with LMA. COMPLICATIONS: [...] cystoscope we passed a 6 x 26 [place] in the soft stent. The stent was [...] 11/08/2014 8:40 AM CDT Test performed at [facility] Dept of Lab Medicine and Pathology, [address] [facility], [place], [place], [place], [address]. Frank Manrique MD LAB BLOOD ORDERABLES Final [...] institution documented in this encounter Care Teams Jukebox Routeman Relationship Specialty Start Date End Date Alberto Stanton PCP - General 07/03/11 08/30/16 documented as of this encounter
--- OUTSIDE RECORDS SUMMARY | 2024-06-14 23:37 | XMS_ITS | Encounter Summary ---
Author Organization [facility] Healthcare Address [address] [place] [address] Care Team Providers Care Computer Systems Software Architect Name Role Phone Alberto Stanton Primary Care [...] file Legal Sex Male 12:56 AM POWER WASHER Gender Identity Not on file Sexual Orientation [...] finding documented in this encounter Care Teams Computer Systems Software Architect Relationship Specialty Start Date End Date Alberto Stanton PCP - General 07/03/11 08/30/16 documented as of this encounter
--- OUTSIDE RECORDS SUMMARY | 2024-06-14 23:37 | XMS_ITS | Encounter Summary ---
Author Organization [facility] Healthcare Address [address] [place] [address] Care Team Providers Care Automobile Engine Assembler Name Role Phone Alberto Stanton Primary Care Provider Unavailabl e Encounter Details Date Type Department Care Team (Latest Contact Info) Description 05/21/2012 7:07 AM CLIPPER COUNTERS - 05/21/2012 11:59 PM CLIPPER COUNTERS Hospital Encounter [facility] CLINCONV Alberto Stanton Lumbosacral [...] on file Legal Sex Male 12:56 AM CLIPPER COUNTERS Gender Identity Not on file Sexual Orientation [...] claudication documented in this encounter Care Teams Automobile Engine Assembler Relationship Specialty Start Date End Date Alberto Stanton PCP - General 07/03/11 08/30/16 documented as of this encounter
--- OUTSIDE RECORDS SUMMARY | 2024-06-14 23:37 | XMS_ITS | Encounter Summary ---
Author Organization [facility] Healthcare Address [address] [place] [address] Care Team Providers Care Network Operations Center Engineer Name Role Phone Alberto Stanton Primary Care Provider Unavailabl e Encounter Details Date Type Department Care Team (Late st Contact Info) Description 05/20/2012 1:25 AM EQUIPMENT SERVICES ASSOCIATE - 05/20/2012 4:05 AM EQUIPMENT SERVICES ASSOCIATE Hospital Encounter [facility] Behzad Jeffries MD [address] [place] [address] Sciatica Social History Tobacco Use Types Packs/Day Years Used Date Smoking Tobacco: Heavy Smoker Comments:Smoking History Pac ks/day: 2 Packs Alcohol Use Standard Drinks/Week Comments Yes 0 (1 standard drink = 0.6 oz pur e alcohol) Sex and Gender Information Value Date Recorded Sex Assigned at Not on file Legal Sex Male 12:56 AM EQUIPMENT SERVICES ASSOCIATE Gender Identity Not on file Sexual [...] Sciatica documented in this encounter Care Teams Network Operations Center Engineer Relationship Specialty Start Date End Date Alberto Stanton PCP - General 07/03/11 08/30/16 documented as of this encounter
--- OUTSIDE RECORDS SUMMARY | 2024-06-14 23:37 | XMS_ITS | Encounter Summary ---
Author Organization [facility] Healthcare Address [address] [place] [address] Care Team Providers Care Dental Billing Specialist Name Role Phone Alberto Stanton Primary Care Provider Unavailabl e Encounter Details Date Type Department Care Team (Late st Contact Info) Description 01/08/2012 9:53 AM CDT - 01/08/2012 11:00 AM CDT Hospital Encounter [facility] Kevin Jarquin MD [address] [place] [address] [address] [place] [address] Hemorrhoids; Procedure not carried out for other reasons Social History Tobacco Use Types Packs/Day Years Used Date Smoking Tobacco: Heavy Smoker Comments:Smoking History Pac ks/day: 2 Packs Alcohol Use Standard Drinks/Week Comments Yes 0 (1 standard drink = 0.6 oz pur e alcohol) Sex and Gender Information Value Date Recorded Sex Assigned at Not on file Legal Sex Male 12:56 AM BOTTOM CEMENTER Gender Identity Not on file Sexual Orientation [...] reasons documented in this encounter Care Teams Dental Billing Specialist Relationship Specialty Start Date End Date Alberto Stanton PCP - General 07/03/11 08/30/16 documented as of this encounter
--- OUTSIDE RECORDS SUMMARY | 2024-06-14 23:38 | XMS_ITS | Encounter Summary ---
Author Organization [facility] Facility Care Team Providers Care Extrusion Die Corrector Name Role Phone Alberto Stanton Primary Care Provider Alberto Mccoy Primary Care Provider Lien alejandro Encounter Details Date Type Department Care Team (Late st Contact Info) Description 12/22/2009 - 06/02/2010 11:59 PM ANIMAL HEALTH TECHNICIAN Hospital Encounter [facility] CLINCONV Social History Tobacco Use Types Packs/Day Years Used Date Smoking Tobacco: Never Assessed Sex and Gender Information Value Date Recorded Sex Assigned at Not on file Legal Sex Male 12:56 AM ANIMAL HEALTH TECHNICIAN Gender Identity Not on file Sexual [...] on filedocumented in this encounter Care Teams Extrusion Die Corrector Relationship Specialty Start Date End Date Alberto Stanton PCP - General 02/22/10 07/02/11 Alberto Stanton PCP - General 11/03/09 02/21/10 documented as of this encounter
--- OUTSIDE RECORDS SUMMARY | 2024-06-14 23:38 | XMS_ITS | Encounter Summary ---
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
--- OUTSIDE RECORDS SUMMARY | 2024-06-14 23:38 | XMS_ITS | Encounter Summary ---
Author Organization [facility] Healthcare Address [address] [place] [address] Care Team Providers Care Trauma Coordinator Name Role Phone Alberto Stanton Primary Care Provider Unavailabl e Encounter Details Date Type Department Care Team (Late st Contact Info) Description 08/24/2010 12:01 AM CDT - 08/24/2010 11:59 PM CDT Hospital Encounter [facility] CLINCONV Alberot Stanton Chest pain; Other dyspnea and respiratory abnormality Social History Tobacco Use Types Packs/Day Years Used Date Smoking Tobacco: Never Assessed Sex and Gender Information Value Date Recorded Sex Assigned at Not on file Legal Sex Male 12:56 AM BIODIESEL PRODUCT DEVELOPMENT MANAGER Gender Identity Not on file [...] abnormality documented in this encounter Care Teams Trauma Coordinator Relationship Specialty Start Date End Date Alberto Stanton PCP - General 02/22/10 07/02/11 documented as of this encounter
--- OUTSIDE RECORDS SUMMARY | 2024-06-14 23:38 | XMS_ITS | Encounter Summary ---
Author Organization [facility]/Health system Facility Care Team Providers Care Butter Production Supervisor Name Role Phone Alberto Stanton Primary Care Provider Unavailabl e Encounter Details Date Type Department Care Team (Late st Contact Info) Description 12/22/2009 3:49 PM CDT Hospital Encounter [place] [address] [facility] [address] [place] [address] Pain in joint, multiple sites; Headache Social History Tobacco Use Types Packs/Day Years Used Date Smoking Tobacco: Never Assessed Sex and Gender Information Value Date Recorded Sex Assigned at Not on file Legal Sex Male 12:56 AM TAIL SAWYER Gender Identity Not on file Sexual [...] Headache documented in this encounter Care Teams Butter Production Supervisor Relationship Specialty Start Date End Date Alberto Stanton PCP - General 11/03/09 02/21/10 documented as of this encounter
--- OUTSIDE RECORDS SUMMARY | 2024-06-14 23:38 | XMS_ITS | Encounter Summary ---
Author Organization [facility] Facility Care Team Providers Care Community Representative Name Role Phone Alberto Stanton Primary Care Provider Unavailabl e Encounter Details Date Type Department Care Team (Late st Contact Info) Description 09/07/2010 - 09/07/2010 4:00 PM CDT Hospital Encounter [facility] CLINCONV Michael Johnson MD [address] [address] Other primary cardiomyopathies; Shortness of breath Social History Tobacco Use Types Packs/Day Years Used Date Smoking Tobacco: Never Assessed Sex and Gender Information Value Date Recorded Sex Assigned at Not on file Legal Sex Male 12:56 AM ASSEMBLY LINE UPHOLSTERER Gender Identity Not on file Sexual Orientation [...] breath documented in this encounter Care Teams Community Representative Relationship Specialty Start Date End Date Alberto Stanton PCP - General 02/22/10 07/02/11 documented as of this encounter
--- OUTSIDE RECORDS SUMMARY | 2024-06-14 23:38 | XMS_ITS | Encounter Summary ---
Author Organization [facility] Facility Care Team Providers Care Commercial Review Appraiser Name Role Phone Alberto Stanton Primary Care Provider Unavailabl e Encounter Details Date Type Department Care Team (Latest Contact Info) Description 09/08/2010 7:01 AM CDT - 09/08/2010 4:00 PM CDT Hospital Encounter [facility] CLINCONV Michael Johnson MD [address] [address] Chest pain; Coronary atherosclerosis of quechan coronary artery; Stricture of artery (CMS/HCC) (HCC) Social History Tobacco Use Types Packs/Day Years Used Date Smoking Tobacco: Never Assessed Sex and Gender Information Value Date Recorded Sex Assigned at Not on file Legal Sex Male 12:56 AM TEST DRIVER Gender Identity Not on file Sexual [...] pain Unspecified chest pain 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
--- OUTSIDE RECORDS SUMMARY | 2024-06-14 23:38 | XMS_ITS | Encounter Summary ---
Author Organization [facility] Healthcare Address [address] [place] [address] Care Team Providers Care Front Window Cashier Name Role Phone Alberto Stanton Primary Care Provider Unavailabl e Encounter Details Date Type Department Care Team (Late st Contact Info) Description 03/08/2009 12:01 AM CDT - 03/08/2009 11:59 PM CDT Hospital Encounter [facility] CLINCONV Kevin Carpio MD [address] [place] [address] [address] [place] [address] Hemorrhoids; Heartburn Social History Tobacco Use Types Packs/Day Years Used Date Smoking Tobacco: Never Assessed Sex and Gender Information Value Date Recorded Sex Assigned at Not on file Legal Sex Male 12:56 AM FIELD 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
--- OUTSIDE RECORDS SUMMARY | 2024-06-14 23:38 | XMS_ITS | Encounter Summary ---
Author Organization [facility] Healthcare Address [address] [place] [address] Care Team Providers Care Storage Facility Housekeeper Name Role Phone Alberto Stanton Primary Care Provider Unavailabl e Encounter Details Date Type Department Care Team (Latest Contact Info) Description 04/13/2010 9:25 AM PRESCHOOL ASSISTANT - 04/13/2010 11:16 AM PRESCHOOL ASSISTANT Hospital Encounter [facility] Bucky Aguilar MD Sebaceous cyst; Local infection of skin and subcutaneous tissue; Benign neoplasm of skin of upper limb, including shoulder Social History Tobacco Use Types Packs/Day Years Used Date Smoking Tobacco: Never Assessed Sex and Gender Information Value Date Recorded Sex Assigned at Not on file Legal Sex Male 12:56 AM PRESCHOOL ASSISTANT Gender Identity Not on file Sexual [...] shoulder documented in this encounter Care Teams Storage Facility Housekeeper Relationship Specialty Start Date End Date Alberto Stanton PCP - General 02/22/10 07/02/11 documented as of this encounter
--- OUTSIDE RECORDS SUMMARY | 2024-06-14 23:38 | XMS_ITS | Encounter Summary ---
Author Organization [facility] Healthcare Address [address] [place] [address] Care Team Providers Care Registered Nurse Maternity Name Role Phone Alberto Stanton Primary Care Provider Unavailabl e Encounter Details Date Type Department Care Team (Late st Contact Info) Description 09/11/2010 12:26 PM CDT - 09/11/2010 11:59 PM CDT Hospital Encounter [facility] DARACONMichael Farah MD [address] [address] Shortness of breath Social History Tobacco Use Types Packs/Day Years Used Date Smoking Tobacco: Never Assessed Sex and Gender Information Value Date Recorded Sex Assigned at Not on file Legal Sex Male 12:56 AM BEATER ENGINEER Gender Identity Not on file Sexual [...] breath documented in this encounter Care Teams Registered Nurse Maternity Relationship Specialty Start Date End Date Alberto Stanton PCP - General 02/22/10 07/02/11 documented as of this encounter
--- OUTSIDE RECORDS SUMMARY | 2024-06-14 23:38 | XMS_ITS | Encounter Summary ---
Author Organization [facility] Healthcare Address [address] [place] [address] Care Team Providers Care Graduate Assistant Athletic Trainer Name Role Phone Alberto Stanton Primary Care [...] on file Legal Sex Male 12:56 AM INSULATION BLANKET MAKER Gender Identity Not on file Sexual [...] thigh documented in this encounter Care Teams Graduate Assistant Athletic Trainer Relationship Specialty Start Date End Date Alberto Stanton PCP - General 02/22/10 07/02/11 documented as of this encounter
--- OUTSIDE RECORDS SUMMARY | 2024-06-14 23:38 | XMS_ITS | Encounter Summary ---
Author Organization [facility] Facility Care Team Providers Care Pediatric Social Worker Name Role Phone Albetro Stanton Primary Care Provider Unavailabl e Encounter Details Date Type Department Care Team (Late st Contact Info) Description 05/11/2009 2:42 PM JACQUARD FIXER - 05/11/2009 11:59 PM JACQUARD FIXER Hospital Encounter [facility] CLINCONV Yefri Leon MD [address] [place] [address] Chronic sinusitis; Headache Social History Tobacco Use Types Packs/Day Years Used Date Smoking Tobacco: Never Assessed Sex and Gender Information Value Date Recorded Sex Assigned at Not on file Legal Sex Male 12:56 AM JACQUARD FIXER Gender Identity Not on file Sexual Orientation Not on file documented as of this encounter Plan of Treatment Not on file documented as of this encounter Visit Diagnoses Diagnosis Chronic sinusitis Unspecified sinusitis (chronic) Headache documented in this encounter Care Teams Pediatric Social Worker Relationship Specialty Start Date End Date Alberto Stanton PCP - General 05/11/09 11/02/09 documented as of this encounter
--- OUTSIDE RECORDS SUMMARY | 2024-06-14 23:38 | XMS_ITS | Encounter Summary ---
Author Organization [facility] Facility Care Team Providers Care Assessment Consultant Name Role Phone Alberto Stanton Primary Care Provider Unavailabl e Encounter Details Date Type Department Care Team (Latest Contact Info) Description 08/09/2008 9:08 AM CDT - 08/09/2008 11:59 PM CDT Hospital Encounter [facility] CLINCONV Yefri Leon MD [address] [place] [address] Other specified pre-operative examination Social History Tobacco Use Types Packs/Day Years Used Date Smoking Tobacco: Never Assessed Sex and Gender Information Value Date Recorded Sex Assigned at Not on file Legal Sex Male 12:56 AM CONVERSION MAN Gender Identity Not on file Sexual Orientation Not on file documented as of this encounter Plan of Treatment Not on file documented as of this encounter Visit Diagnoses Diagnosis Other specified pre-operative examination documented in this encounter Care Teams Assessment Consultant Relationship Specialty Start Date End Date Alberto Stanton PCP - General 07/21/08 08/17/08 documented as of this encounter
--- OUTSIDE RECORDS SUMMARY | 2024-06-14 23:38 | XMS_ITS | Encounter Summary ---
Author Organization [facility] Healthcare Address [address] [place] [address] Care Team Providers Care Salon Supervisor Name Role Phone Unavailable Primary Care Provider Unavailabl e Encounter Details Date Type Department Care Team (Late st Contact Info) Description 06/14/2006 12:29 AM ROLLED OATS MILL OPERATOR - 06/14/2006 3:36 AM ROLLED OATS MILL OPERATOR Hospital Encounter [facility] Howard Roldan MD [address] [place]: [place] [address] Alberto Stanton Social History Tobacco Use Types Packs/Day Years Used Date Smoking Tobacco: Never Assessed Sex and Gender Information Value Date Recorded Sex Assigned at Not on file Legal Sex Male 12:56 AM ROLLED OATS MILL OPERATOR Gender Identity Not on file Sexual Orientation Not on file documented as of this encounter Plan of Treatment Not on file documented as of this encounter Visit Diagnoses Not on filedocumented in this encounter
--- OUTSIDE RECORDS SUMMARY | 2024-06-14 23:38 | XMS_ITS | Encounter Summary ---
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
--- OUTSIDE RECORDS SUMMARY | 2024-06-14 23:38 | XMS_ITS | Encounter Summary ---
Author Organization [facility] Healthcare Address [address] [place] [address] Care Team Providers Care Rotor Plate Washer Name Role Phone Alberto Stanton Primary Care Provider Unavailabl e Encounter Details Date Type Department Care Team (Late st Contact Info) Description 04/14/2010 1:17 PM ICT SUPPORT TECHNICIANS - 04/14/2010 4:30 PM ICT SUPPORT TECHNICIANS Hospital Encounter [facility] CLINCONV Kevin Blackwell MD [address] [address] Alberto Stanton Concussion with no loss of consciousness; Fall Social History Tobacco Use Types Packs/Day Years Used Date Smoking Tobacco: Never Assessed Sex and Gender Information Value Date Recorded Sex Assigned at Not on file Legal Sex Male 12:56 AM ICT SUPPORT TECHNICIANS Gender Identity Not on file Sexual Orientation [...] fall documented in this encounter Care Teams Rotor Plate Washer Relationship Specialty Start Date End Date Alberto Stanton PCP - General 02/22/10 07/02/11 documented as of this encounter
--- OUTSIDE RECORDS SUMMARY | 2024-06-14 23:38 | XMS_ITS | Encounter Summary ---
Author Organization [facility] Facility Care Team Providers Care Motor Installer Name Role Phone Alberto Stanton Primary Care Provider Unavailabl e Encounter Details Date Type Department Care Team (Late st Contact Info) Description 08/10/2008 6:11 AM CDT - 08/10/2008 10:41 AM CDT Hospital Encounter [facility] CLINCONV Yefri Leon MD [address] [place] [address] Chronic sinusitis Social History Tobacco Use Types Packs/Day Years Used Date Smoking Tobacco: Never Assessed Sex and Gender Information Value Date Recorded Sex Assigned at Not on file Legal Sex Male 12:56 AM FEED PROJECT ENGINEER Gender Identity Not on file Sexual Orientation Not on file documented as of this encounter Plan of Treatment Not on file documented as of this encounter Visit Diagnoses Diagnosis Chronic sinusitis Unspecified sinusitis (chronic) documented in this encounter Care Teams Motor Installer Relationship Specialty Start Date End Date Alberto Stanton PCP - General 07/21/08 08/17/08 documented as of this encounter
--- OUTSIDE RECORDS SUMMARY | 2024-06-14 23:38 | XMS_ITS | Encounter Summary ---
Author Organization [facility] Healthcare Address [address] [place] [address] Care Team Providers Care Mattress Finisher Name Role Phone Alberto Statnon Primary Care Provider Unavailabl e Encounter Details [...] on file Legal Sex Male 12:56 AM TITLE CURATIVE SPECIALIST Gender Identity Not on file Sexual [...] hypertension documented in this encounter Care Teams Mattress Finisher Relationship Specialty Start Date End Date Alberto Stanton PCP - General 11/03/09 02/21/10 documented as of this encounter
--- OUTSIDE RECORDS SUMMARY | 2024-06-14 23:38 | XMS_ITS | Encounter Summary ---
Author Organization [facility] Healthcare Address [address] [place] [address] Care Team Providers Care Nutrition Partner Name Role Phone Alberto Stanton Primary Care Provider Unavailabl e Encounter Details Date Type Department Care Team (Late st Contact Info) Description 11/30/2008 12:01 AM CDT - 11/30/2008 11:59 PM CDT Hospital Encounter [facility] CLINCONV Kevin Carpio MD [address] [place] [address] [address] [place] [address] Unspecified hemorrhoids with other complication; Asthma Social History Tobacco Use Types Packs/Day Years Used Date Smoking Tobacco: Never Assessed Sex and Gender Information Value Date Recorded Sex Assigned at Not on file Legal Sex Male 12:56 AM IMAGING ASSISTANT Gender Identity Not on file Sexual Orientation Not on file documented as of this encounter Plan of Treatment Not on file documented as of this encounter Visit Diagnoses Diagnosis Unspecified hemorrhoids with other complication Asthma Unspecified asthma documented in this encounter Care Teams Nutrition Partner Relationship Specialty Start Date End Date Alberto Stanton PCP - General 08/18/08 05/10/09 documented as of this encounter
--- OUTSIDE RECORDS SUMMARY | 2024-06-14 23:38 | XMS_ITS | Encounter Summary ---
Author Organization [facility] Healthcare Address [address] [place] [address] Care Team Providers Care Eligibility And Occupancy Interviewer Name Role Phone Alberto Stanton Primary Care Provider Unavailabl e Encounter Details Date Type Department Care Team (Late st Contact Info) Description 10/30/2009 5:54 PM CDT - 10/30/2009 7:54 PM CDT Hospital Encounter [facility] CLINCONV Kevin Blackwell MD [address] [address] Alberto Stanton Chronic sinusitis; Otitis media Social History Tobacco Use Types Packs/Day Years Used Date Smoking Tobacco: Never Assessed Sex and Gender Information Value Date Recorded Sex Assigned at Not on file Legal Sex Male 12:56 AM FANCY PACKER Gender Identity Not on file Sexual Orientation Not on file documented as of this encounter Plan of Treatment Not on file documented as of this encounter Visit Diagnoses Diagnosis Chronic sinusitis Unspecified sinusitis (chronic) Otitis media Unspecified otitis media documented in this encounter Care Teams Eligibility And Occupancy Interviewer Relationship Specialty Start Date End Date Alberto Stanton PCP - General 05/11/09 11/02/09 documented as of this encounter
--- OUTSIDE RECORDS SUMMARY | 2024-06-14 23:38 | XMS_ITS | Encounter Summary ---
Author Organization [facility] Healthcare Address [address] [place] [address] Care Team Providers Care Telegraph And Teletype Operator Name Role Phone Alberto Stanton Primary Care Provider Unavailabl e Encounter Details Date Type Department Care Team (Late st Contact Info) Description 05/06/2009 9:06 AM SENIOR WEB DEVELOPER - 05/06/2009 11:59 PM SENIOR WEB DEVELOPER Hospital Encounter [facility] Kevin Jarquin MD [address] [place] [address] [facility] [address] [place] [address] Internal hemorrhoids; Heartburn Social History Tobacco Use Types Packs/Day Years Used Date Smoking Tobacco: Never Assessed Sex and Gender Information Value Date Recorded Sex Assigned at Not on file Legal Sex Male 12:56 AM SENIOR WEB DEVELOPER Gender Identity Not on file Sexual Orientation Not on file documented as of this encounter Plan of Treatment Not on file documented as of this encounter Visit Diagnoses Diagnosis Internal hemorrhoids Internal hemorrhoids without mention of complication Heartburn documented in this encounter Care Teams Telegraph And Teletype Operator Relationship Specialty Start Date End Date Alberto Stanton PCP - General 08/18/08 05/10/09 documented as of this encounter
== END 2024-06-08 16:18 | disposition home or self-care (01) ==
PROVIDERS: Emergency Provider Student in an Organized Health Care Education/Training Program; PCP Family Medicine
DX: J10.1 Influenza due to other identified influenza virus with other respiratory manifestations (principal); D64.9 Anemia, unspecified; Z20.822 Contact with and (suspected) exposure to COVID-19; N40.0 Benign prostatic hyperplasia without lower urinary tract symptoms; K21.9 Gastro-esophageal reflux disease without esophagitis; M19.90 Unspecified osteoarthritis, unspecified site; M06.9 Rheumatoid arthritis, unspecified; Z85.820 Personal history of malignant melanoma of skin; Z85.21 Personal history of malignant neoplasm of larynx; Z87.442 Personal history of urinary calculi; Z87.891 Personal history of nicotine dependence; Z90.79 Acquired absence of other genital organ(s)
CPT/HCPCS: 36415; 71045; 80053; 85025; 87637; 96372; 99283; A9270; J1885; J8540

== ENCOUNTER 2024-06-19 10:46 | Outpatient (CLI) | payer MEDICARE, SELFPAY ==
--- OUTSIDE RECORDS SUMMARY | 2024-06-25 06:35 | XMS_ITS ---
Author Organization [facility] Address [address] [place] [address] Phone Care Team Providers Care Lap Machine Tender Name Role Phone GRACIE ESQUEDA DO [phone] Problems Includes: Active, inactive, and resolved Problems No Active Problems Plan of Treatment Findings Encounter Date Ordered patient will call [facility] appointment as needed COVID SICK VISIT- NEW PATIENT with BRANDO DELGADO TAPE FOLDING MACHINE OPERATOR-BC 06/01/2022 Last Documented On 2 11:57AM ; [facility] Ordered return to the clinic if condition worsens or new symptoms arise COVID SICK VISIT- NEW PATIENT with BRANDO DELGADO TAPE FOLDING MACHINE OPERATOR-BC 06/01/2022 Last Documented On 2 11:57AM ; [facility] Instructions to patient Instructions for patient Last Documented On 2 11:53AM ; [facility] Assessments Includes: Assessments for all patient encounters Findings Encounter Date Acute upper respiratory infection COVID SICK VISIT- NEW PATIENT with BRANDO DELGADO TAPE FOLDING MACHINE OPERATOR-BC 06/01/2022 Last Documented On 2 11:57AM ; [facility] Instructions Includes: Instructions for all patient encounters Instructions to patient Instructions for patient Last Documented On 2 11:53AM ; [facility] Medical Equipment - Implanted Devices Includes: Current and historical Devices No Medical Equipment Recorded Medications Includes: Current and historical Medications Current Medications (continue as prescribed) Methotrexate 2.5 MG Oral Tablet 05/31/2022 Provider: Diagnosis: Last Documented On 2 11:55AM By BRANDO NARAYANAN ; [facility] Finasteride 5 MG Oral Tablet 05/28/2022 Provider: FRANK LOPEZ Diagnosis: Last Documented On 11:55AM By BRANDO DELGADO TAPE FOLDING MACHINE OPERATOR- ; [facility] Omeprazole 40 MG Oral Capsule Delayed Release 05/10/20 Provider: Diagnosis: Last Documented On 2 11:55AM By BRANDO SANCHEZ ; [facility] oxyCODONE HCl 5 MG Oral Tablet 05/07/2022 Provider: Diagnosis: Last Documented On 2 11:55AM By BRANDO SANCHEZ ; [facility] Fluticasone Propionate 50 MC G/ACT Nasal Suspension 04/12/2022 Provider: FAWN IBARRA PA-C Diagnosis: Last Documented On 2 11:55AM By BRANDO SANCHEZ ; [facility] Montelukast Sodium 10 MG Oral Tablet 04/12/2022 Prov ider: FAWN IBARRA PA-C Diagnosis: Last Documented On 2 11:55AM By BRANDO SANCHEZ ; [facility] rOPINIRole HCl 2 MG Oral Tablet 03/28/2022 Provider: FAWN IBARRA PA-C Diagnosis: Last Documented On 2 11:56AM By BRANDO SANCHEZ ; [facility] Medications Administered Includes: Administered Medications in patient's chart No Administered Medications Recorded Results Includes: Results from 06/25/2023 through 06/25/2024 No Results Recorded For Specified Dates History [...] 06/01/2022 Last Documented On 2 11:57AM ; [facility] Review of Systems Review of Systems not [...] Subscriber Relationship Effect marcelino Dates 1 - [facility]/MEDICARE ADV/AARP [id number] PASQUALE Rojas Clinical Notes Includes: Signed Clinical Notes starting from 06/22/2022 No Clinical Notes Recorded
--- OUTSIDE RECORDS SUMMARY | 2024-06-25 06:35 | XMS_ITS ---
Care Plan - [facility] Created on: June 25, 2024 PASQUALE HUFFMAN : 1945 Sex: Male Author Organization [facility] Address [address] [place] [address] Phone Care Team Providers Care Foundry Tender Name Role Phone GRACIE ESQUEDA DO [phone]
--- OUTSIDE RECORDS SUMMARY | 2024-06-25 06:35 | XMS_ITS | Clinical Summary ---
Author Organization [facility] Address [address] [place] [address] Phone Care Team Providers Care Instructional Consultant Name Role Phone GRACIE ESQUEDA DO [phone] Reason for Visit and Chief Complaint The Chief Complaint is: patient has had cough, MA, FREDERICK, sore throat, congestion, and runny nose since Saturday Problems Includes: Problems addressed during this encounter and other active Problems No Active Problems Plan of Treatment - Return to the clinic if condition worsens or new symptoms arise - Last Documented On 06/01/2022 11:57AM ; [facility] - Patient will call for appointment as needed - Last Documented On 06/01/2022 11:57AM ; [facility] Instructions to patient Instructions for patient Last Documented On 11:53AM ; [facility] Assessments Includes: Assessments from this encounter Findings - Acute upper respiratory infection - Last Documented On 06/01/2022 11:57AM ; [facility] Instructions Includes: Instructions from this encounter Instructions to patient Instructions for patient Last Documented On 11:53AM ; [facility] Medical Equipment - Implanted Devices Includes: Current Devices No Medical Equipment Recorded Medications Includes: Medications discussed during this encounter and other current Medications Current Medications (continue as prescribed) Methotrexate 2.5 MG Oral Tablet 05/31/2022 Provider: Diagnosis: Last Documented On 11:55AM By BRANDO SANCHEZ ; [facility] Finasteride 5 MG Oral Tablet 05/28/2022 Provider: FRANK LOPEZ Diagnosis: Last Documented On 11:55AM By BRANDO SANCHEZ ; [facility] Omeprazole 40 MG Oral Capsule Delayed Release 05/10/20 Provider: Diagnosis: Last Documented On 11:55AM By BRANDO SANCHEZ ; [facility] oxyCODONE HCl 5 MG Oral Tablet 05/07/2022 Provider: Diagnosis: Last Documented On 11:55AM By BRANDO SANCHEZ ; [facility] Fluticasone Propionate 50 MC G/ACT Nasal Suspension 04/12/2022 Provider: FAWN IBARRA PA-C Diagnosis: Last Documented On 11:55AM By BRANDO SANCHEZ ; [facility] Montelukast Sodium 10 MG Oral Tablet 04/12/2022 Prov ider: FAWN IBARRA PA-C Diagnosis: Last Documented On 11:55AM By BRANDO SANCHEZ ; [facility] rOPINIRole HCl 2 MG Oral Tablet 03/28/2022 Provider: FAWN IBARRA PA-C Diagnosis: Last Documented On 11:56AM By BRANDO SANCHEZ ; [facility] Medications Administered Includes: Administered Medications from this encounter No Administered Medications Recorded Vital Signs Includes: Vital Signs from this encounter Vital Name 06/01/2022 11:38A Pulse Rate-Sitting (bpm) 64 Temp-Oral (F) 98 Weight (lb) 221 Oxygen Saturation (%) 98 Last Documented: On 06/01/2022 11:39A M ; [facility] Results Includes: Results discussed during this encounter SARS COVID-19 FLU A & B [facility] Ordered by DAISHA ARIAS WORKERS COMPENSATION CLAIMS ADJUSTER on 05/05 Collected: Reported: 06/01/2022 11:48 Last Documented On 11:49AM ; [facility] Reviewed on 06/01/2022; All test results are final unless otherwise noted. COVID neg N (Normal) Last Documented On 11:49AM ; [facility] INFLUENZA A neg (Negative) N (Normal) Last Documented On 11:49AM ; [facility] INFLUENZA B neg (negative) N (Normal) Last Documented On 11:49AM ; [facility] INT. QC ACCEPTABLE? yes N (Normal) Last Documented On 11:49AM ; [facility] LOT # & EXP. DATE [id number] 04/11/23 N (Normal) Last Documented On 2 11:49AM ; [facility] History of Present Illness Includes: History of [...] patient Last Documented On 2 11:53AM ; [facility] Patient verbalizes understanding Last Documented On 2 11:53AM ; [facility] Increase fluids Last Documented On 2 11:53AM ; [facility] Clinical summary provided to patient Last Documented On 2 11:53AM ; [facility] Medical History Includes: Medical History addressed during this encounter No Medical History Recorded Family History Includes: Family History addressed during this encounter Description Last Updated Family history unchanged 06/01/2022 Last Documented On 2 11:57AM ; [facility] Review of Systems Includes: Review of Systems [...] COVID SICK VISIT- NEW PATIENT BRANDO DELGADO WORKERS COMPENSATION CLAIMS ADJUSTER-BC [facility] 06/01/20 22 11:32AM 11:52AM Upper Respiratory Infection Acute Insurance Includes: Active Insurance Policies Plan Name Member ID Group # Subscriber Relationship Effect marcelino Dates 1 - [facility]/MEDICARE ADV/AARP [id number] PASQUALE HUFFMAN Self Clinical Notes Includes: Clinical Notes from this encounter No Clinical Notes Recorded
== END 2024-06-19 10:47 | disposition home or self-care (01) ==
LOC: ANHAUDIO 10:47
PROVIDERS: PCP Family Medicine; Visit Provider Audiologist
DX: H90.41 Sensorineural hearing loss, unilateral, right ear, with unrestricted hearing on the contralateral side (principal); H90.72 Mixed conductive and sensorineural hearing loss, unilateral, left ear, with unrestricted hearing on the contralateral side; H93.8X2 Other specified disorders of left ear; H74.02 Tympanosclerosis, left ear; H73.92 Unspecified disorder of tympanic membrane, left ear
CPT/HCPCS: 92557; 92567

== ENCOUNTER 2024-06-24 13:03 | Outpatient (CLI) | payer MEDICARE, SELFPAY ==
[2024-06-24 14:30] LABS: Hematocrit 43.5 % (42.0-52.0); Hemoglobin 14.3 g/dL (14.0-18.0); Mean Corpuscular HGB Conc 32.9 g/dl (32-36); Mean Corpuscular Hemoglobin 30.6 pg (26-34); Mean Corpuscular Volume 93.1 fl (80-100); Platelet Count Result 202 k/mm3 (150-375); Red Blood Count 4.67 M/mm3 (4.6-6.20); Red Cell Distribution Width 13.5 % (11.5-14.5); White Blood Count 13.8 K/mm3 (4.5-10.0)
[2024-06-24 14:31] LABS: Add Urine Microscopic? YES; Appearance Urine Cloudy (Clear); Bacteria Urine None Seen /hpf; Bilirubin Urine Negative (Negative); Blood Urine Trace (Negative); Color Urine Yellow (Yellow); Glucose Urine UA Negative (Negative); Ketones Urine Negative (Negative); Leukocyte Esterase Ur 2+ LEU/UL (Negative); Mucus Urine Present /lpf; Need Manual Microscopic Reviewed; Nitrate Urine Negative (Negative); Non Pathogenic Casts 0-2; Protein Urine 1+ mg/dL (Negative); RBC Urine 0-2 /hpf (0-2); Specific Grav Ur 1.023 (1.001-1.035); Squamous Epithelial Cell Urine Occasional /hpf (Few); WBC Urine >100 /hpf (0-3)
[2024-06-24 16:18] LABS: Alanine Aminotransferase 31 U/L (6-50); Albumin Level 3.8 g/dL (3.5-5.1); Alkaline Phosphatase 82 U/L (38-126); Anion Gap 10 mmol/L (4-12); Aspartate Amino Transferase 23 U/L (17-59); Bilirubin,Total 0.9 mg/dL (0.2-1.3); Blood Urea Nitrogen 26 mg/dL (9-20); Carbon Dioxide 25 mmol/L (22-30); Chloride 104 mmol/L (98-107); Cholesterol 151 mg/dL (0-200); Estimated Glomerular Filt Rate > 60; Glucose 108 mg/dL (65-110); HDL Direct 32 mg/dL; Potassium 3.7 mmol/L (3.4-5.0); Sodium 139 mmol/L (137-145); Triglycerides 160 mg/dL (<150)
[2024-06-24 16:30] LABS: LDL Cholesterol Direct 84 mg/dL
[2024-06-24 16:49] LABS: Prostate Specific Antigen 19.7 ng/mL (< OR = 4.0)
--- OUTSIDE RECORDS SUMMARY | 2024-06-26 00:52 | XMS_ITS | Clinical Summary ---
Author Organization [email or web address] Address [address] [facility] [address] Care Team Providers Care Electrician Technician Name Role Phone Viraj Romeo Primary Care Provider [phone] Source Comments [email or web address],non-owned Affiliates and Associated Physician Practices is amultiple site organization consisting of ambulatory clinics and hospital sitesin [place], [place], [place] and [place]. This disclosure is being madepursuant to the Care Everywhere program and may not contain all information available regarding this patient. Last updated 18.[email or web address] Allergies Active Allergy Reactions Criticality Noted Date [...] age to complete this topic Care Teams Electrician Technician Relationship Specialty Start Date End Date Viraj Romeo PA [address] [place] [address] PCP - General 12/28/20
--- OUTSIDE RECORDS SUMMARY | 2024-06-26 00:52 | XMS_ITS | Encounter Summary ---
Author Organization [facility] Healthcare Address [address] [place] [address] Care Team Providers Care What Job Titles Mean Name Role Phone Criss Blanco MD Unavailable Lashay Downs RN Unavailable Unavailab Duke Goodwin RN Unavailable UnavailNgozi Husain MD Unavailable [phone] Jose Roberto Marx MD Unavailable [phone] Grey Tomas MD Primary Care Provider [phone] Encounter Details Date Type Department Care Team (Late st Contact Info) Description 08/15/2020 Telephone 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
--- OUTSIDE RECORDS SUMMARY | 2024-06-26 00:52 | XMS_ITS ---
Author Organization [facility] Address [address] [place] [address] Phone Care Team Providers Care Inspector Cold Working Name Role Phone GRACIE ESQUEDA DO [phone] Problems Includes: Active, inactive, and resolved Problems No Active Problems Plan of Treatment Findings Encounter Date Ordered patient will call [facility] appointment as needed COVID SICK VISIT- NEW PATIENT with BRANDO DELGADO QUALITY CONTROL TESTER-BC 06/01/2022 Last Documented On 2 11:57AM ; [facility] Ordered return to the clinic if condition worsens or new symptoms arise COVID SICK VISIT- NEW PATIENT with BRANDO DELGADO QUALITY CONTROL TESTER-BC 06/01/2022 Last Documented On 2 11:57AM ; [facility] Instructions to patient Instructions for patient Last Documented On 2 11:53AM ; [facility] Assessments Includes: Assessments for all patient encounters Findings Encounter Date Acute upper respiratory infection COVID SICK VISIT- NEW PATIENT with BRANDO DELGADO QUALITY CONTROL TESTER-BC 06/01/2022 Last Documented On 2 11:57AM ; [facility] Instructions Includes: Instructions for all patient encounters Instructions to patient Instructions for patient Last Documented On 2 11:53AM ; [facility] Medical Equipment - Implanted Devices Includes: Current and historical Devices No Medical Equipment Recorded Medications Includes: Current and historical Medications Current Medications (continue as prescribed) Methotrexate 2.5 MG Oral Tablet 05/31/2022 Provider: Diagnosis: Last Documented On 2 11:55AM By BRANDO NARAYANAN ; [facility] Finasteride 5 MG Oral Tablet 05/28/2022 Provider: FRANK LOPEZ Diagnosis: Last Documented On 11:55AM By BRANDO DELGADO QUALITY CONTROL TESTER- ; [facility] Omeprazole 40 MG Oral Capsule Delayed Release 05/10/20 Provider: Diagnosis: Last Documented On 2 11:55AM By BRANDO SANCHEZ ; [facility] oxyCODONE HCl 5 MG Oral Tablet 05/07/2022 Provider: Diagnosis: Last Documented On 2 11:55AM By BRANDO SANCHEZ ; [facility] Fluticasone Propionate 50 MC G/ACT Nasal Suspension 04/12/2022 Provider: FAWN IBARRA PA-C Diagnosis: Last Documented On 2 11:55AM By BRANDO SANCHEZ ; [facility] Montelukast Sodium 10 MG Oral Tablet 04/12/2022 Prov ider: FAWN IBARRA PA-C Diagnosis: Last Documented On 2 11:55AM By BRANDO SANCHEZ ; [facility] rOPINIRole HCl 2 MG Oral Tablet 03/28/2022 Provider: FAWN IBARRA PA-C Diagnosis: Last Documented On 2 11:56AM By BRANDO SANCHEZ ; [facility] Medications Administered Includes: Administered Medications in patient's chart No Administered Medications Recorded Results Includes: Results from 06/26/2023 through 06/26/2024 No Results Recorded For Specified Dates History [...] Last Documented On 2 11:57AM ; [facility] Review of Systems Review of Systems [...] Subscriber Relationship Effect marcelino Dates 1 - [facility]/MEDICARE ADV/AARP [id number] PASQUALE Rojas Clinical Notes Includes: Signed Clinical Notes starting from 06/22/2022 No Clinical Notes Recorded
--- OUTSIDE RECORDS SUMMARY | 2024-06-26 00:52 | XMS_ITS | Encounter Summary ---
Author Organization [facility] Address [address] [place] [address] Care Team Providers Care Peoplesoft Administrator Name Role Phone Alberto Stanton MD Primary Care Provider [phone] Reason for Visit * Reason Comments Medication Refill Encounter Details Date Type Department Care Team (Late st Contact Info) Description 09/10/2019 Refill [facility] [address] [place] [id number] Nathanael Fairchild MD [address] [place] [address] Social History Tobacco Use Types Packs/Day Years Used Date Smoking Tobacco: Never Assessed Sex and Gender Information Value Date Recorded Sex Assigned at Not on file 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
--- OUTSIDE RECORDS SUMMARY | 2024-06-26 00:52 | XMS_ITS | Continuity of Care Document ---
Author Organization [facility] Address [address] [facility] [address] [place] [address] Phone Care Team Providers Care Offbearer Sewer Pipe Name Role Phone Albina Orellana OD Unavailable [...] Diagnoses Date Provider Providers Copied on Encounter [facility], [address], [place], [place], [id number], [place] tel:[phone] SEC [place] Professional Complete Exam (chief complaint) High risk medication useNexdtve age-related mclr degn, right eye, early dry stageDry eyes, bilateralCombi mazin forms of age-related cataract, bilateralChori oretinal scar of right eyeScar of cornea of right eyeBilateral ocular hypertension Oct-2 4 Reyna OD Albina. [address] [place] [address], [address], [place], [place], [address], [place]. tel:[phone] Alissa Fuentes MD.Referri Provider: Judit Walker, [address] [facility], [place], [address]. tel:[phone] [facility], [address], [place], [place], [id number], [place] tel:[phone] SEC [place] Professional Complete Exam (chief complaint) High risk medication useScar of cornea of right eyeNexdtve age-related mclr degn, right eye, early dry stageDry eyes, bilateralCombi mazin forms of age-related cataract, bilateral Dec- 0 1 Reyna Montemayor. [address], [address], [place], [place], [id number], [place]. tel:[phone] Specialist : Alissa Fuentes MD, [address] [facility] [address], [place], [address]. tel:[phone] er Provider: Alissa Fuentes MD, [address] [facility] [address] [place] [address], [address]. tel:[phone] erring Provider: Albina Orellana OD L, [address], [place], [address] . tel:[phone] [facility], [facility] [address] [facility], [place], [place], [id number], [place] tel:[phone] SEC Alex[place] Professional Complete Exam (chief complaint) Nexdtve age-related mclr degn, right eye, early dry stageCombined forms of age-related cataract, right eyeAge-related nuclear cataract, left eyeScar of cornea of right eyeHigh risk medication useSkin tagChorioretin al atrophy of right eye 0 Dallas Weiss. [address] [facility], [facility], [id number], [place]. tel:[phone] Other Provider: Alissa Fuentes MD, [address] [facility] [address], [place], [address]. tel:[phone] erring Provider: Abhishek Bonilla, [address] [facility] [address], [place], [address] . tel:[phone] [facility], [address] [place], [place] [address], [place], [place], [address], [place] tel:[phone] SEC Abran Humberto Landin Information 0 Dallas Weiss. [address] [facility], [facility], [place], [place], [id number], [place]. tel:[phone] [facility], [address], [place], [place], [address], [place] tel:[phone] SEC [facility] Samuel Complete Exam (chief complaint) Combined forms of age-related cataract, right eyeCombined forms of age-related cataract, left eyeDry eyes, bilateralScar of cornea of right eyeChorioretin al scar of right eyeRPE mottling of macula 8 Aaron Spain. [address] [place], [address], [place]. tel:[phone] Referring Provider: Judit Walker, [address] [place], [address]. tel:[phone] Family History Family Member Type Diagnosis Age At Onset No Information Payers Payer name Insurance type Covered republican ID Authorvikram treviño(s) [facility] Mdcr Adv CI [id number] Social History Type Description Quantity Date Captured [...]
--- OUTSIDE RECORDS SUMMARY | 2024-06-26 00:52 | XMS_ITS | Referral Summary ---
Author Organization [facility] [employer] Address [address] [facility] [place] [address] Care Team Providers Care Instructor Modeling Name Role Phone Viraj Romeo Primary Care Provider [phone] Source Comments [facility] [employer],non-owned Affiliates and Associated Physician Practices is amultiple site organization consisting of ambulatory clinics and hospital sitesin [place], [place], [place] and [place]. This disclosure is being madepursuant to the Care Everywhere program and may not contain all information available regarding this patient. Last updated 18.[facility] [employer] Allergies Active Allergy Reactions Criticality Noted Date [...] of Treatment Not on file Care Teams Instructor Modeling Relationship Specialty Start Date End Date Viraj Romeo PA [address] [place] [address] PCP - General 12/28/20
--- OUTSIDE RECORDS SUMMARY | 2024-06-26 00:52 | XMS_ITS ---
Author Organization [facility] Address [address] [place] [address] Care Team Providers Care Professor Of Psychology Name Role Phone Criss Blanco MD Unavailable Lashay Downs RN Unavailable Unavailab Duke Goodwin RN Unavailable UnavailNgozi Husain MD Unavailable [phone] Jose Roberto Marx MD Unavailable [phone] Grey Tomas MD Primary Care Provider [phone] Active Problems Problem Noted Date Diagnosed Date Non-seasonal allergic rhinitis 11/26/2023 Assessment & Plan (11/26/2023 3:48 PM CDT): Continue montelukast 10 mg once daily OTC antihistamine daily Avoid triggers Saline nasal rinses Subdural hematoma 02/05/2023 Chronic panethmoidal sinusitis 01/31/2023 SDH (subdural hematoma) 07/01/2022 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 Assessment & Plan (04/18/2021 11:46 AM OUTDOOR ADVERTISING LEASING AGENT): No evidence of disease today. However he [...] CDT): 75 yo M with a h/o [id number] TVC SCCA s/p KTP laser, presenting with new right TVC lesions concerning for malignancy. Plan to proceed to the OR for biopsy and laser treatment of the new right TVC lesions. Assessment & Plan (08/09/2020 3:55 PM OUTDOOR ADVERTISING LEASING AGENT): No evidence of disease on examination today. Continue routine surveillance. Assessment & Plan (05/20/2020 10:03 AM OUTDOOR ADVERTISING LEASING AGENT): No evidence of disease on examination today. Continue routine surveillance. 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 Assessment & Plan (06/23/2019 11:47 AM OUTDOOR ADVERTISING LEASING AGENT): His larynx looks clean after KTP laser treatment. 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 I would like to continue routine observation every 8 weeks. Assessment & Plan (05/12/2019 11:46 AM OUTDOOR ADVERTISING LEASING AGENT): The leukoplakia of the anterior right true [...] proceed. 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 Assessment & Plan (11/21/2016 9:17 AM CDT): Will continue to monitor the patient with routine labs. 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 Treatments may have been administered in another system. Lifetime Dose Tracking * Chemical Lifetime Dose Automatic Entry Manual Entr y Fluoro Time 40.382 minutes 40.382 minutes 0 minutes Air kerma at the reference point (Ka,r) 2,371.47 mGy 2 ,371.47 mGy 0 mGy DLP 5,625 mGycm 5,625 mGycm 0 mGycm
--- OUTSIDE RECORDS SUMMARY | 2024-06-26 00:52 | XMS_ITS ---
Care Plan - [facility] Created on: June 26, 2024 PASQUALE HUFFMAN : 1945 Sex: Male Author Organization [facility] Address [address] [place] [address] Phone Care Team Providers Care Gameplay Engineer Name Role Phone GRACIE ESQUEDA DO [phone]
--- OUTSIDE RECORDS SUMMARY | 2024-06-26 00:52 | XMS_ITS | Clinical Summary ---
Author Organization [facility] Address [address] [place] [address] Phone Care Team Providers Care Roll Table Operator Name Role Phone GRACIE ESQUEDA DO [phone] Reason for Visit and Chief Complaint The Chief Complaint is: patient has had cough, MA, FREDERICK, sore throat, congestion, and runny nose since Saturday Problems Includes: Problems addressed during this encounter and other active Problems No Active Problems Plan of Treatment - Return to the clinic if condition worsens or new symptoms arise - Last Documented On 06/01/2022 11:57AM ; [facility] - Patient will call for appointment as needed - Last Documented On 06/01/2022 11:57AM ; [facility] Instructions to patient Instructions for patient Last Documented On 11:53AM ; [facility] Assessments Includes: Assessments from this encounter Findings - Acute upper respiratory infection - Last Documented On 06/01/2022 11:57AM ; [facility] Instructions Includes: Instructions from this encounter Instructions to patient Instructions for patient Last Documented On 11:53AM ; [facility] Medical Equipment - Implanted Devices Includes: Current Devices No Medical Equipment Recorded Medications Includes: Medications discussed during this encounter and other current Medications Current Medications (continue as prescribed) Methotrexate 2.5 MG Oral Tablet 05/31/2022 Provider: Diagnosis: Last Documented On 11:55AM By BRANDO SANCHEZ ; [facility] Finasteride 5 MG Oral Tablet 05/28/2022 Provider: FRANK LOPEZ Diagnosis: Last Documented On 11:55AM By BRANDO SANCHEZ ; [facility] Omeprazole 40 MG Oral Capsule Delayed Release 05/10/20 Provider: Diagnosis: Last Documented On 11:55AM By BRANDO SANCHEZ ; [facility] oxyCODONE HCl 5 MG Oral Tablet 05/07/2022 Provider: Diagnosis: Last Documented On 11:55AM By BRANDO SANCHEZ ; [facility] Fluticasone Propionate 50 MC G/ACT Nasal Suspension 04/12/2022 Provider: FAWN IBARRA PA-C Diagnosis: Last Documented On 11:55AM By BRANDO SANCHEZ ; [facility] Montelukast Sodium 10 MG Oral Tablet 04/12/2022 Prov ider: FAWN IBARRA PA-C Diagnosis: Last Documented On 11:55AM By BRANDO SANCHEZ ; [facility] rOPINIRole HCl 2 MG Oral Tablet 03/28/2022 Provider: FAWN IBARRA PA-C Diagnosis: Last Documented On 11:56AM By BRANDO SANCHEZ ; [facility] Medications Administered Includes: Administered Medications from this encounter No Administered Medications Recorded Vital Signs Includes: Vital Signs from this encounter Vital Name 06/01/2022 11:38A Pulse Rate-Sitting (bpm) 64 Temp-Oral (F) 98 Weight (lb) 221 Oxygen Saturation (%) 98 Last Documented: On 06/01/2022 11:39A M ; [facility] Results Includes: Results discussed during this encounter SARS COVID-19 FLU A & B [facility] Ordered by DAISHA ARIAS RAIL SPECIALIST on 05/05 Collected: Reported: 06/01/2022 11:48 Last Documented On 11:49AM ; [facility] Reviewed on 06/01/2022; All test results are final unless otherwise noted. COVID neg N (Normal) Last Documented On 11:49AM ; [facility] INFLUENZA A neg (Negative) N (Normal) Last Documented On 11:49AM ; [facility] INFLUENZA B neg (negative) N (Normal) Last Documented On 11:49AM ; [facility] INT. QC ACCEPTABLE? yes N (Normal) Last Documented On 11:49AM ; [facility] LOT # & EXP. DATE [id number] 04/11/23 N (Normal) Last Documented On 2 11:49AM ; [facility] History of Present Illness Includes: [...] patient Last Documented On 2 11:53AM ; [facility] Patient verbalizes understanding Last Documented On 2 11:53AM ; [facility] Increase fluids Last Documented On 2 11:53AM ; [facility] Clinical summary provided to patient Last Documented On 2 11:53AM ; [facility] Medical History Includes: Medical History addressed during this encounter No Medical History Recorded Family History Includes: Family History addressed during this encounter Description Last Updated Family history unchanged 06/01/2022 Last Documented On 2 11:57AM ; [facility] Review of Systems Includes: Review [...] COVID SICK VISIT- NEW PATIENT BRANDO DELGADO RAIL SPECIALIST-BC [facility] 06/01/20 22 11:32AM 11:52AM Upper Respiratory Infection Acute Insurance Includes: Active Insurance Policies Plan Name Member ID Group # Subscriber Relationship Effect marcelino Dates 1 - [facility]/MEDICARE ADV/AARP [id number] PASQUALE HUFFMAN Self Clinical Notes Includes: Clinical Notes from this encounter No Clinical Notes Recorded
--- OUTSIDE RECORDS SUMMARY | 2024-06-26 00:52 | XMS_ITS | Clinical Summary ---
Author Organization [facility] Address [address] [address] [address] [place] [address] Phone Care Team Providers Care Performing Artist Name Role Phone Alberto Stanton MD Primary Care Provider [phone] Medications Doxepin 4% Compound Cream Apply to affected area every 4 hours as needed for itching. 60 Gram 08/24/2019 1:13 PM CDT 0 Active doxepin HCl 4% cream compound Apply a small amount topically to the affected area every 4 hours as needed. 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 Gender Identity Not on file Sexual Orientation Not on file Plan of Treatment Health Maintenance Due Date Last Done Comments ZOSTER VACCINE (1 of 2) 1964 PNEUMOCOCCAL VACCINE 65+ YEA RS (2 of 2 - PCV) 02/06/2012 02/05/2011 RSV VACCINE (60+ or ) (1 - 1-dose 75+ series) 2018 INFLUENZA VACCINE (#1) 2024 6, 06/07/2014, 06/14/2013, Additional history exists DTAP/TDAP/TD VACCINES (2 - T d or Tdap) 06/30/2029 06/30/2019 Insurance MEDICARE PART A AND B BCBS SUPP RX OPTUM RX Member Subscriber Plan / Payer (Ef fective 2020-Present) Name:Samuel Sanchez Relation to Subscriber:Self Name:Samuel Sanchez Payer ID:Not on file Group ID:[id number] Type:RX Medicare Part D Address: [place] Care Teams Performing Artist Relationship Specialty Start Date End Date Alberto Stanton MD [address] [place] [address] PCP - General Internal Medicine 12/30/14
--- OUTSIDE RECORDS SUMMARY | 2024-06-26 00:52 | XMS_ITS | Clinical Summary ---
Author Organization [facility] Address [address] [place] [address] Care Team Providers Care Media Sales Consultant Name Role Phone Criss Blanco MD Unavailable Lashay Downs RN Unavailable Unavailab Duke Goodwin RN Unavailable UnavailNgozi Husain MD Unavailable [phone] Jose Roberto Marx MD Unavailable [phone] Grey Tomas MD Primary Care Provider [phone] Allergies Active Allergy Reactions Criticality Noted Date [...] 1 tablet (5 mg total) by mouth piano player before breakfast Active omeprazole (PriLOSEC) 40 mg [...] (05/01/2022): Added automatically from request for surgery [id number] Lesion of vocal fold 04/25/2022 Overview (04/25/2022): Added automatically from request for surgery [id number] Adenomatous polyp of colon 04/04/2022 Pollard's esophagus [...] surveillance. Assessment & Plan (04/18/2021 11:46 AM TOYS AND GAMES HAND FINISHER): No evidence of disease today. However he [...] CDT): 75 yo M with a h/o [id number] TVC SCCA s/p KTP laser, presenting with new right TVC lesions concerning for malignancy. Plan to proceed to the OR for biopsy and laser treatment of the new right TVC lesions. Assessment & Plan (08/09/2020 3:55 PM TOYS AND GAMES HAND FINISHER): No evidence of disease on examination today. Continue routine surveillance. Assessment & Plan (05/20/2020 10:03 AM TOYS AND GAMES HAND FINISHER): No evidence of disease on examination today. Continue routine surveillance. 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 Assessment & Plan (06/23/2019 11:47 AM TOYS AND GAMES HAND FINISHER): His larynx looks clean after KTP laser treatment. 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 I would like to continue routine observation every 8 weeks. Assessment & Plan (05/12/2019 11:46 AM TOYS AND GAMES HAND FINISHER): The leukoplakia of the anterior right true [...] proceed. 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 Assessment & Plan (11/21/2016 9:17 AM CDT): Will continue to monitor the patient with routine labs. 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) 07/03/2011 Overview (02/21/2017): RHEUMATOID ARTHRITIS Positive [...] spurs LITHOTRIPSY 5 or 6 times - [id number] LARYNGOSCOPY 01/09/2019 Right Direct laryngoscopy with biopsy [...] hemorroids; Com ments: Had done at [facility] in [place] Hx Other Medical bladder infecti on Hx [...] on file Legal Sex Male 12:56 AM TOYS AND GAMES HAND FINISHER Gender Identity Not on file Sexual [...] home safety. Medical Devices Implanted Type Area [employer] English Teacher Device Identifier Shelf Expiration Date Model / Serial / Lot Better Walk Particle Embolization Pre Filled Foam Vial 2ml Microsphere Contour 150-250um Polyvinyl Alcohol [id number] - [id number] Implanted:Qty: 1 on 02/05/[address] [facility] [employer] 08/21/2025 [id number] / / [id number] [employer] Coil Embolization Tornado Microcoil [place] Od3-2mm .018 In Catheter [id number] - [id number] Implanted:Qty: 1 on 02/05/[address] [facility] [employer] 08/07/2027 [id number] / / [id number] Instant[employer] Angio-Seal Vip 6fr Closere Device [id number] - [id number] Implanted:Qty: 1 on 02/05/[address] [facility] [employer] 08/01/2023 [id number] / / [id number] Procedures Procedure Name Priority Date/Time Associated Diagnosis Comments CT ABDOMEN PELVIS W CONTRAST ED 05/20/2018 1:12 AM TOYS AND GAMES HAND FINISHER from Last 3 Months or Most Recently Relevant to Health Maintenance Results * CT Abdomen Pelvis W Contrast (05/20/2018 1:12 AM TOYS AND GAMES HAND FINISHER) Anatomical Region Laterality Modality Body N/A Computed Tomogra phy 05/20/2018 7:08 AM TOYS AND GAMES HAND FINISHER Impressions 05/20/2018 7:24 AM TOYS AND GAMES HAND FINISHER 1. ??PERSISTENT 4 MM DISTAL RIGHT URETER STONE ALTHOUGH HYDROURETERONEPHROSIS ON THE RIGHT HAS C4 IMPROVED COMPARED WITH THE PRIOR EXAMINATION. ??THERE IS PERSISTENT LEFT LOWER POLE HYDRONEPHROSIS. ??NONOBSTRUCTING STONES WITHIN THE KIDNEYS PERSIST. 2. ??DEVELOPMENT OF MILD SPLENOMEGALY. 3. ??OTHER NONACUTE FINDINGS ABOVE. REPORT BY NAUN BOONE FOR VIRTUAL RADIOLOGY 05/20/2018 AT 2:17 AM. Electronically signed by: Antelmo Travis 05/20/2018 7:24 AM TOYS AND GAMES HAND FINISHER CT ABDOMEN PELVIS W CONTRAST HISTORY: Abd [...] Advance Directives For more information, please contact: [phone] Documents on File Type Date Recorded Patient Puppy Walker Expl anation ADVANCE DIRECTIVE 03/09/2019 6:43 AM * Full Code (Latest Code Status on File) Date Activated Date Inactivated Comments 02/05/2023 11:14 AM 02/06/2023 5:10 PM * Full Code Date Activated Date Inactivated Comments 07/01/2022 9:36 PM 07/03/2022 2:45 PM Care Teams Media Sales Consultant Relationship Specialty Start Date End Date Grey Tomas MD PCP - General Family Practice 07/27/22 [place] [address] [facility] [address] [place] [address] Rheumatology 02/21/17 Lashay Downs, GAY Registered Nurse Pain Management 06/17/17 Duke Do, RN Registered Nurse 09/09/17 Ngozi Petty MD Radiation Oncologist Radiation Oncology 02/05/19 Jose Roberto Marx MD Referring Physician Otolaryngology 02/05/19
--- OUTSIDE RECORDS SUMMARY | 2024-06-26 00:52 | XMS_ITS | Referral Summary ---
Author Organization [facility] Address [address] [place] [address] Care Team Providers Care Environmental Maintenance Worker Name Role Phone Criss Blanco MD Unavailable Lashay Downs RN Unavailable Unavailab Duke Goodwin RN Unavailable UnavailNgozi Husain MD Unavailable [phone] Jose Roberto Marx MD Unavailable [phone] Grey Tomas MD Primary Care Provider [phone] Allergies Active Allergy Reactions Criticality Noted Date [...] tablet (5 mg total) by mouth public stenographer before breakfast Active omeprazole (PriLOSEC) 40 mg [...] (05/01/2022): Added automatically from request for surgery [id number] Lesion of vocal fold 04/25/2022 Overview (04/25/2022): Added automatically from request for surgery [id number] Adenomatous polyp of colon 04/04/2022 Pollard's esophagus [...] surveillance. Assessment & Plan (04/18/2021 11:46 AM VETERINARY PRACTICE MANAGER): No evidence of disease today. However he [...] CDT): 75 yo M with a h/o [id number] TVC SCCA s/p KTP laser, presenting with new right TVC lesions concerning for malignancy. Plan to proceed to the OR for biopsy and laser treatment of the new right TVC lesions. Assessment & Plan (08/09/2020 3:55 PM VETERINARY PRACTICE MANAGER): No evidence of disease on examination today. Continue routine surveillance. Assessment & Plan (05/20/2020 10:03 AM VETERINARY PRACTICE MANAGER): No evidence of disease on examination today. Continue routine surveillance. 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 Assessment & Plan (06/23/2019 11:47 AM VETERINARY PRACTICE MANAGER): His larynx looks clean after KTP laser treatment. 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 I would like to continue routine observation every 8 weeks. Assessment & Plan (05/12/2019 11:46 AM VETERINARY PRACTICE MANAGER): The leukoplakia of the anterior right true [...] proceed. Assessment & Plan (04/07/2019 1:25 PM VETERINARY PRACTICE MANAGER): There are 2 small punctate areas of [...] 07/01/2018 Assessment & Plan (07/01/2018 2:08 PM VETERINARY PRACTICE MANAGER): Lifelong 'upset stomachj this relieved by adding [...] were normal Chronic pansinusitis 01/09/2017 long term acute care registered nurse use of drug 11/21/2016 Assessment & Plan (02/21/2017 10:12 AM CDT): Will continue to monitor the patient with routine labs. Assessment & Plan (11/21/2016 9:17 AM CDT): Will continue to monitor the patient with routine labs. 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 Medical Devices Implanted Type Area Rug Repairer Device Identifier Shelf Expiration Date Model / Serial / Lot Padloc Particle Embolization Pre Filled Foam Vial 2ml Microsphere Contour 150-250um Polyvinyl Alcohol [id number] - [id number] Implanted:Qty: 1 on 02/05/2023 at [facility] [employer] Eliza 08/21/2025 [id number] / / [id number] unbound technologies Coil Embolization Tornado Microcoil [place] Od3-2mm .018 In Catheter [id number] - [id number] Implanted:Qty: 1 on 02/05/2023 at [facility] [employer] 08/07/2027 [id number] / / [id number] [employer] Angio-Seal Vip 6fr Closere Device [id number] - [id number] Implanted:Qty: 1 on 02/05/2023 at [facility] [employer] 08/01/2023 [id number] / / [id number] Procedures Procedure Name Priority Date/Time Associated Diagnosis Comments CT ABDOMEN PELVIS W CONTRAST ED 05/20/2018 1:12 AM VETERINARY PRACTICE MANAGER from Last 3 Months or Most Recently Relevant to Health Maintenance Results * CT Abdomen Pelvis W Contrast (05/20/2018 1:12 AM VETERINARY PRACTICE MANAGER) Anatomical Region Laterality Modality Body N/A Computed Tomogra phy 05/20/2018 7:08 AM VETERINARY PRACTICE MANAGER Impressions 05/20/2018 7:24 AM VETERINARY PRACTICE MANAGER 1. ??PERSISTENT 4 MM DISTAL RIGHT URETER STONE ALTHOUGH HYDROURETERONEPHROSIS ON THE RIGHT HAS C4 IMPROVED COMPARED WITH THE PRIOR EXAMINATION. ??THERE IS PERSISTENT LEFT LOWER POLE HYDRONEPHROSIS. ??NONOBSTRUCTING STONES WITHIN THE KIDNEYS PERSIST. 2. ??DEVELOPMENT OF MILD SPLENOMEGALY. 3. ??OTHER NONACUTE FINDINGS ABOVE. REPORT BY NAUN BOONE FOR VIRTUAL RADIOLOGY 05/20/2018 AT 2:17 AM. Electronically signed by: Antelmo Travis 05/20/2018 7:[address] ABDOMEN PELVIS W CONTRAST HISTORY: Abd [...] Recently Relevant to Health Maintenance Insurance MEDICARE [facility] Address: [facility] [address] [place] [address] [employer] [facility] MEDICARE Address: [facility] [address] [place] [address] MEDICARE [place] [facility] MEDICARE Address: [address] [address] Advance Directives For more information, please contact: [phone] Documents on File Type Date Recorded Patient Movie Theater Manager Expl anation ADVANCE DIRECTIVE 03/09/2019 6:43 AM * Full Code (Latest Code Status on File) Date Activated Date Inactivated Comments 02/05/2023 11:14 AM 02/06/2023 5:10 PM * Full Code Date Activated Date Inactivated Comments 07/01/2022 9:36 PM 07/03/2022 2:45 PM Care Teams Environmental Maintenance Worker Relationship Specialty Start Date End Date Grey Tomas MD PCP - General Family Practice 07/27/22 [place] [address] [facility] [address] [place] [address] Rheumatology 02/21/17 Lashay Downs, RN Registered Nurse Pain Management 06/17/17 Duke Do, RN Registered Nurse 09/09/17 Ngozi Petty MD Radiation Oncologist Radiation Oncology 02/05/19 Jose Roberto Marx MD Referring Physician Otolaryngology 02/05/19
--- OUTSIDE RECORDS SUMMARY | 2024-06-26 00:52 | XMS_ITS | Patient Health Summary ---
Author Organization [facility] Address [address] [place] [address] Care Team Providers Care Supervisor Die Casting Name Role Phone Viraj Romeo Primary Care Provider [phone] Note from [facility],non-owned Affiliates and Associated Physician Practices is amultiple site organization consisting of ambulatory clinics and hospital sitesin [place], [place], [place] and [place]. This disclosure is being madepursuant to the Care Everywhere program and may not contain all information available regarding this patient. Last updated 18.[facility] Allergies * Hydrocodone(Itching) -Low Criticality * [...] (STL)(Performed 11/08/2021) Performed for Diagnosis deferred * OR ED EGD FLEX TRANSORAL DX(Performed 11/08/2021) * [...] Diagnosis unknown * COLONOSCOPY SCREEN(Performed 03/14/2020) * OR ED EGD FLEX TRANSORAL DX(Performed 03/14/2020) * [...] Case Report Surgical Pathology Report ? Case: [id number] ? Authorizing Provider: ??Loyd Thao MD ? Collected: ? 11/08/2021 09:49 AM ? Ordering Location: ? [facility] ?Received: ?11/08/2021 10:33 AM ? [...] sessile serrated adenoma. 11/10/2021 12:14 PM T [facility] Disclaimer All histochemical and/or immunohistochemical results are interpreted with controls that demonstrate appropriate staining reactions before reporting results. Note on use of immunocytochemistry reagents: This test was developed and its performance characteristic determined by [facility], Department of Laboratory Medicine. It has [...] interpreted with caution. 11/10/2021 12:14 PM CDT [facility] Embedded Images 11/10/2021 12:14 PM CDT [facility] Pathology/Cytology ESOPHAGEAL BIOPSY SPECIMEN / Unknown 11/08/2021 9:49 AM CDT 11/08/2021 10:33 AM CDT Miscellaneous samples (specimen) POLYP OF COLON / Unknown 11/08/2021 10:07 AM CDT 11/08/2021 10:33 AM CDT Loyd Thao MD LAB - PATHOLOGY/CYT OLOGY ORDERABLES [facility] [address] [place] [address] * HELICOBACTER PYLORI UREASE (STL) (11/08/2021 9:48 AM CDT) Only the most recent of2 resultswithin the time period is included. Helicobacter pylori Urease Initial Negative Negative 11/09/2021 10:17 AM CDT [facility] Helicobacter pylori Urease Final Negative Negative 11/09/2021 10:17 AM CDT [facility] Comment:This is an appended report. These results have been appended to a previously preliminary verified report. Microbiology GASTRIC ANTRAL BIOPSY SPECIMEN / Unknown 11/08/2021 9:48 AM CDT 11/08/2021 1:48 PM CDT Loyd Thao MD LAB - MICROBIOLOGY ORDERABLES [facility] [address] [place] [address] * EGD (11/08/2021 8:53 AM [...] the physician, the nurse and the ? sanitation worker hosing machinery in the procedure room. Mental Status ? [...] Procedure Code(s): ? --- Professional --- ? 00433, Esophagogastroduod enoscopy, flexible, transoral; with biopsy, ? single or multiple ? --- Technical --- ? 88622, Esophagogastroduod enoscopy, flexible, transoral; with biopsy, ? single or multiple Diagnosis Code(s): ? --- Professional --- ? 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 K29.70, Gastritis, unspecified, without bleeding ? K21.9, Gastro-esophageal reflux disease without esophagitis ? --- Technical --- ? 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 K29.70, Gastritis, unspecified, without bleeding ? K21.9, Gastro-esophageal reflux disease without esophagitis CPT copyright 2019 [employer]. All rights reserved. The codes documented in this report are preliminary and upon record cutter review may be revised to meet current compliance requirements. Dr. Loyd Thao MD Loyd Thao MD 11/08/2021 9:50:09 AM This report has been signed electronically. Number of Addenda: 0 Note Initiated On: 11/08/2021 8:53 AM [facility] 11/08/2021 8:53 AM CDT Loyd Thao MD GI PROCEDURE ORDERA KIERANS [facility] [place] Reyes [id number] * ENDOSCOPY, COLON, SCREENING (11/08/2021 8:52 AM CDT) Report Endoscopy POC _ Patient Name: Samuel Sanchez ?Procedure Date: 11/08/2021 8:52 AM ? Date of : 1945 ?Admit Type: Outpatient Age: 76 ? Gender: Male Attending MD: Lyod Thao MD _ Procedure: ? Colonoscopy Indications: [...] the physician, the nurse and the ? sanitation worker hosing machinery in the procedure room. Mental Status ? [...] Procedure Code(s): ? --- Professional --- ? 69343, Colonoscopy, flexible; with removal of tumor(s), polyp(s), or ? other lesion(s) by snare technique ? --- Technical --- ? 42170, Colonoscopy, flexible; with removal of tumor(s), polyp(s), [...] abscess ? without bleeding CPT copyright 2019 [employer]. All rights reserved. The codes documented in this report are preliminary and upon record cutter review may be revised to meet current compliance requirements. Dr. Loyd Thao MD Loyd Thao MD 11/08/2021 10:13:01 AM This report has been signed electronically. Number of Addenda: 0 Note Initiated On: 11/08/2021 8:52 AM [facility] 11/08/2021 8:52 AM CDT Loyd Thao MD GI PROCEDURE ORDERA VINAY [facility] [place] [address] * CT ABDOMEN PELVIS W CONTRAST (03/30/2020 [...] - 1.20 mg/dL 03/30/2020 10:13 AM CDT [facility] Blood BLOOD SPECIMEN / Unknown 03/30/2020 10:00 AM CDT 03/30/2020 10:13 AM CDT Rojas Zuniga MD LAB - POINT OF CARE ORDERABLES [facility] [address] [place] [address] * MRI LUMBAR SPINE WO [...] Procedure Code(s): ? --- Professional --- ? 62411, Colonoscopy, flexible; with removal of tumor(s), polyp(s), or ? other lesion(s) by snare technique ? --- Technical --- ? 24195, Colonoscopy, flexible; with removal of tumor(s), polyp(s), [...] R10.84, Generalized abdominal pain CPT copyright 2017 [employer]. All rights reserved. The codes documented in this report are preliminary and upon record cutter review may be revised to meet current compliance requirements. Dr. Rojas Zuniga M.D. Rojas Zuniga MD 03/14/2020 12:47:22 PM Number of Addenda: 0 Note Initiated On: 03/14/2020 9:53 AM [facility] 03/14/2020 9:53 AM CDT Zelda Batista POWERHOUSE TENDER-PROCESSING ENGINEER GI PROCEDURE OR DERABLES [facility] [place] [id number] * EGD (03/14/2020 9:26 AM CDT) Report Endoscopy POC __ _ Patient Name: Samuel Sanchez ?Procedure Date: 03/14/2020 9:26 AM ? Date of : 1945 ?Admit Type: Outpatient Age: 74 ? Gender: Male Attending MD: Rojas Zuniag MD ? __ _ Procedure: ? Upper [...] Procedure Code(s): ? --- Professional --- ? 95768, Esophagogastroduode noscopy, flexible, transoral; with biopsy, ? single or multiple ? --- Technical --- ? 30813, Esophagogastroduode noscopy, flexible, transoral; with biopsy, ? [...] R10.84, Generalized abdominal pain CPT copyright 2017 [employer]. All rights reserved. The codes documented in this report are preliminary and upon record cutter review may be revised to meet current compliance requirements. Dr. Rojas Zuniga M.D. Rojas Zuniga MD 03/14/2020 12:32:00 PM Number of Addenda: 0 Note Initiated On: 03/14/2020 9:26 AM [facility] 03/14/2020 9:26 AM CDT Rojas Zuniga MD GI PROCEDURE ORDERAB LES [facility] [place] [address] * XR CHEST PA AND LATERAL (06/05/2016 10:58 AM FIELD SERVICE REPRESENTATIVE) Anatomical Region Laterality Modality Chest Radiographic Corin ging 06/05/2016 1:44 PM FIELD SERVICE REPRESENTATIVE Impressions 06/05/2016 1:44 PM FIELD SERVICE REPRESENTATIVE Clear lungs. Narrative 06/05/2016 1:44 PM FIELD SERVICE REPRESENTATIVE Chest x-ray 2 views. HISTORY: Rheumatoid arthritis. [...] DERMATOLOGY (03/15/2016 12:00 AM CDT) Result CASE: [id number] PATIENT: MARY SANCHEZ PATHOLOGIC DIAGNOSIS: Back: BENIGN VERRUCOUS KERATOSIS CLINICAL DATA: Irritated SK GROSS DESCRIPTION: Received is one formalin filled container labeled with the patients name. The specimen consists of a shave biopsy measuring 9j4m1bo. Jar 0. MICROSCOPIC DESCRIPTION: Sections show hyperkeratosis, papillomatosis, hypergranulosis , and acanthosis. ??These histological findings can be seen in a verruca vulgaris or a seborrheic keratosis. Electronically signed out by Stephanie Hyman M.D. 03/20/2016 2:52:57PM [facility] Comment: Performed at: Dermatopathology Laboratory [facility] Department of Dermatology [address] [place] [address], 5th [place] [address] Phone number: [phone] FAX: [phone] 03/15/2016 03/19/2016 Historical Provider MD LAB - PATHOLOGY/C YTOLOGY ORDERABLES [facility] [address] [place] [address]. 5th [place] [address], [facility] [phone] Care Teams Supervisor Die Casting Relationship Specialty Start Date End Date Viraj Romeo PA [address] [place] [address] PCP - General 12/28/20
--- OUTSIDE RECORDS SUMMARY | 2024-06-26 00:52 | XMS_ITS | Continuity of Care Document ---
Author Organization [facility] Address [address] [place] [address] Phone Care Team Providers Care Negative Stripper Name Role Phone Tuan GARCIA, Adalid Unavailable [...] [facility] , [address], [place], [address], tel:[phone] [facility] Follow up (chief complaint) Chronic coughChronic GERDOther seasonal allergic rhinitisLaryng eal cancer 3 Tuan Hamsa. [address], [place], [place], [address]. tel:[phone] OFFICE/OUTPA TIENT VISIT EST [facility] , [address], [place], [address], tel:[phone] [facility] allergy evaluation (chief complaint) Body mass index [BMI] 27.0-27.9, adultChronic coughChronic panethmoidal sinusitisOther seasonal allergic rhinitisOther allergic rhinitisChroni c GERD 3 Tuan Hamsa. [address], [place], [place], [address]. tel:[phone] OFFICE/OUTPA TIENT VISIT NEW [facility] , [address], [place], [address], [place] tel:[phone] [facility] allergy evaluation (chief complaint) CoughChronic pansinusitisAl lergy to pollen 7 Tuan Hamsa. [address], [place], [place], [address]. tel:[phone] OFFICE/OUTPA TIENT VISIT EST [facility] , [address], [place], [address], [place] tel:[phone] [facility] nasal congestion (chief complaint)o ccasional coughing (chief complaint) Chronic nasopharyngiti s 2 Tuan Hamsa. [address], [place], [place], [address]. tel:[phone] OFFICE/OUTPA TIENT VISIT EST [facility] , [address] , [place], [address], [place] tel:[phone] [facility] follow up (chief complaint) Chronic rhinitisChroni c rhinitis 2 Tuan Hamsa. [address], [place], [place], [address]. tel:[phone] OFFICE/OUTPA TIENT VISIT EST [facility] , [address], [place], [address], [place] tel:[phone] [facility] sick (chief complaint) Cough 2 Tuan Hamsa. [address], [place], [place], [address]. tel:[phone] OFFICE OUTPT EST 25 MIN [facility] , [address], [place], [address], [place] tel:[phone] [facility] follow up (chief complaint) Chronic nasopharyngiti sRespiratory abnormality, unspecified 2 Tuan Hamsa. [address], [place], [place], [address]. tel:[phone] Family History Family Member Type Diagnosis Age At Onset No Information Immunizations Vaccine Date Status Comments Influenza, quadrivalent, hig h dose, injectable, split virus, preservative free, 0.7 mL dose, Fluzone High-Dose Quad administered Source: Other Provid er Pneumococcal polysaccharide PPV23 adminis tered Source: Other Provider SARS-COV-2 (COVID-19) vaccin e, vector non-replicating, recombinant spike protein-Ad26, preservative free, 0.5 mL (Quellan) administered Source: Other Provid er Payers Payer name Insurance type Covered alliance party ID Authorvikram treviño(s) [facility] Medicare Complete HMO OT [id number] Social History Type Description Quantity Date Captured [...] at this time. allergy evaluation 77[facility] in 2016 for [...]
--- OUTSIDE RECORDS SUMMARY | 2024-06-26 00:52 | XMS_ITS | Encounter Summary ---
Author Organization [facility] Address [address] [place] [address] Care Team Providers Care Cushion Maker Hand Name Role Phone Criss Blanco MD Unavailable Lashay Downs RN Unavailable Unavailab Duke Goodwin RN Unavailable UnavailNgozi Husain MD Unavailable [phone] Jose Roberto Marx MD Unavailable [phone] Grey Tomas MD Primary Care Provider [phone] Encounter Details Date Type Department Care Team (Late st Contact Info) Description 01/06/2019 Orders Only [facility] Health Information Management [address] [place] [address] Viraj Romeo, PA [address] [place] [address] Social History Tobacco Use Types Packs/Day Years Used Date Smoking Tobacco: Former Cigarettes 2 30 Smokeless Tobacco: Never Comments:Smoking History Pac ks/day: 2 Packs Alcohol Use Standard Drinks/Week Comments Yes 2 (1 standard drink = 0.6 oz pur e alcohol) Sex and Gender Information Value Date Recorded Sex Assigned at Not on file Legal Sex Male 12:56 AM 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 Gender Identity Not on file Sexual Orientation Not on file documented as of this encounter Plan of Treatment Not on file documented as of this encounter Visit Diagnoses Not on filedocumented in this encounter Additional Health Concerns Infection Onset Date Last Indicated Resolved Time COVID: Suspected 10/23/2023 10/23/2023 10/24/2023 3:06 AM CDT documented as of this encounter Care Teams Cushion Maker Hand Relationship Specialty Start Date End Date Grey Tomas MD PCP - General Family Practice 07/27/22 [place] [address] [facility] [address] [place] [address] Rheumatology 02/21/17 Lashay Downs, RN Registered Nurse Pain Management 06/17/17 Duke Do, RN Registered Nurse 09/09/17 Ngozi Petty MD Radiation Oncologist Radiation Oncology 02/05/19 Jose Roberto Marx MD Referring Physician Otolaryngology 02/05/19 documented as of this encounter
--- OUTSIDE RECORDS SUMMARY | 2024-06-26 00:53 | XMS_ITS | Clinical Summary ---
Author Organization [facility] Address [address] [place] [address] Phone Care Team Providers Care Sales Representative Publications Name Role Phone Grey Tomas MD Primary Care Provider [phone] Allergies No known active allergies Medications methotrexate [...] this topic Medical Devices Implanted Type Area Vertical Contour Band Saw Operator Device Identifier Shelf Expiration Date Model / Serial / Lot Stent Ureteral 6fr 2.1fr 26cm 2 Pigtail Curve 2 Durometer Taper Tip Loprfl Graduated PackLate.comis Ultra - [id number] Implanted:Qty : 1 on 02/06/2020 by Elizabeth Alba MD at [facility] IMPLANT Right: Ureter [employer] 07/16/2022 [id number] 0 / [id number] / [id number] Insurance MEDICARE C [facility] Member Subscriber Plan / Payer (Ef fective 2022-Present) Name:Samuel Sanchez Relation to Subscriber:Self Name:Samuel Sanchez Payer ID:[id number] (NAIC) Type:Not on file Address: [facility] [id number] [place] [id number] Advance Directives * Full Code (Latest Code Status on File) Date Activated Date Inactivated Comments 02/06/2020 2:19 AM 02/08/2020 4:15 PM CPR-Full Treat ment: FULL ARREST: Attempt Resuscitation/CPR wit intubation and mechanical ventilation. PRE-ARREST: Use entire range of life support measures to stabilize the patient. Care Teams Sales Representative Publications Relationship Specialty Start Date End Date Grey Tomas MD [address] [place] [address] PCP - General Family Medicine 10/25/23
== END 2024-06-24 13:04 | disposition home or self-care (01) ==
PROVIDERS: PCP Family Medicine; Visit Provider Family Medicine
DX: N30.90 Cystitis, unspecified without hematuria (principal); I63.9 Cerebral infarction, unspecified; R10.84 Generalized abdominal pain; N40.0 Benign prostatic hyperplasia without lower urinary tract symptoms; M06.9 Rheumatoid arthritis, unspecified; C32.9 Malignant neoplasm of larynx, unspecified; K21.9 Gastro-esophageal reflux disease without esophagitis; Z12.5 Encounter for screening for malignant neoplasm of prostate
CPT/HCPCS: 36415; 80053; 80061; 81001; 84153; 85027; 87086; G0103

== ENCOUNTER 2024-07-08 09:41 | Outpatient (CLI) | payer MEDICARE, SELFPAY ==
[2024-07-08 10:10] LABS: Add Urine Microscopic? YES; Appearance Urine Cloudy (Clear); Bacteria Urine 1+ /hpf; Bilirubin Urine Negative (Negative); Blood Urine 2+ (Negative); Color Urine Yellow (Yellow); Glucose Urine UA Negative (Negative); Ketones Urine Negative (Negative); Leukocyte Esterase Ur 3+ LEU/UL (Negative); Nitrate Urine Negative (Negative); Non Pathogenic Casts 0-2; Protein Urine 1+ mg/dL (Negative); RBC Urine >100 /hpf (0-2); Specific Grav Ur 1.015 (1.001-1.035); Squamous Epithelial Cell Urine None Seen /hpf (Few); WBC Urine >100 /hpf (0-3); pH Urine 6.5 (5.0-9.0)
--- OUTSIDE RECORDS SUMMARY | 2024-07-08 10:28 | XMS_ITS | Encounter Summary ---
Author Organization [facility] Address [address] [place] [address] Care Team Providers Care Supervisor Instant Potato Processing Name Role Phone Alberto Stanton MD Primary Care Provider [phone] Reason for Visit * Reason Comments Medication Refill Encounter Details Date Type Department Care Team (Late st Contact Info) Description 09/10/2019 Refill [facility] [address] [place] [id number] Nathanael Fairchild MD [address] [place] [address] Social History Tobacco Use Types Packs/Day Years Used Date Smoking Tobacco: Never Assessed Sex and Gender Information Value Date Recorded Sex Assigned at Not on file Legal Sex Male 6:13 PM GENERAL REPAIRER Gender Identity Not on file Sexual Orientation Not on file documented as of this encounter Plan of Treatment Not on file documented as of this encounter Visit Diagnoses Not on filedocumented in this encounter Care Teams Supervisor Instant Potato Processing Relationship Specialty Start Date End Date Alberto Stanton MD [address] [place] [address] PCP - General Internal Medicine 06/01/14 documented as of this encounter
--- OUTSIDE RECORDS SUMMARY | 2024-07-08 10:28 | XMS_ITS ---
Author Organization [facility] Address [address] [place] [address] Phone Care Team Providers Care Lead Miner Blasting Name Role Phone GRACIE ESQUEDA DO [phone] Problems Includes: Active, inactive, and resolved Problems No Active Problems Plan of Treatment Findings Encounter Date Ordered patient will call [facility] appointment as needed COVID SICK VISIT- NEW PATIENT with BRANDO DELGADO HOME DAY CARE PROVIDER-BC 06/01/2022 Last Documented On 2 11:57AM ; [facility] Ordered return to the clinic if condition worsens or new symptoms arise COVID SICK VISIT- NEW PATIENT with BRANDO DELGADO HOME DAY CARE PROVIDER-BC 06/01/2022 Last Documented On 2 11:57AM ; [facility] Instructions to patient Instructions for patient Last Documented On 2 11:53AM ; [facility] Assessments Includes: Assessments for all patient encounters Findings Encounter Date Acute upper respiratory infection COVID SICK VISIT- NEW PATIENT with BRANDO DELGADO HOME DAY CARE PROVIDER-BC 06/01/2022 Last Documented On 2 11:57AM ; [facility] Instructions Includes: Instructions for all patient encounters Instructions to patient Instructions for patient Last Documented On 2 11:53AM ; [facility] Medical Equipment - Implanted Devices Includes: Current and historical Devices No Medical Equipment Recorded Medications Includes: Current and historical Medications Current Medications (continue as prescribed) Methotrexate 2.5 MG Oral Tablet 05/31/2022 Provider: Diagnosis: Last Documented On 2 11:55AM By BRANDO NARAYANAN ; [facility] Finasteride 5 MG Oral Tablet 05/28/2022 Provider: FRANK LOPEZ Diagnosis: Last Documented On 11:55AM By BRANDO DELGADO HOME DAY CARE PROVIDER- ; [facility] Omeprazole 40 MG Oral Capsule Delayed Release 05/10/20 Provider: Diagnosis: Last Documented On 2 11:55AM By BRANDO SANCHEZ ; [facility] oxyCODONE HCl 5 MG Oral Tablet 05/07/2022 Provider: Diagnosis: Last Documented On 2 11:55AM By BRANDO SANCHEZ ; [facility] Fluticasone Propionate 50 MC G/ACT Nasal Suspension 04/12/2022 Provider: FAWN IBARRA PA-C Diagnosis: Last Documented On 2 11:55AM By BRANDO SANCHEZ ; [facility] Montelukast Sodium 10 MG Oral Tablet 04/12/2022 Prov ider: FAWN IBARRA PA-C Diagnosis: Last Documented On 2 11:55AM By BRANDO SANCHEZ ; [facility] rOPINIRole HCl 2 MG Oral Tablet 03/28/2022 Provider: FAWN IBARRA PA-C Diagnosis: Last Documented On 2 11:56AM By BRANDO SANCHEZ ; [facility] Medications Administered Includes: Administered Medications in patient's chart No Administered Medications Recorded Results Includes: Results from 07/08/2023 through 07/08/2024 No Results Recorded For Specified Dates History [...] Last Documented On 2 11:57AM ; [facility] Review of Systems Review of Systems not [...] - [facility]/MEDICARE ADV/[employer]ARP [id number] PASQUALE Rojas Clinical Notes Includes: Signed Clinical Notes starting from 06/22/2022 No Clinical Notes Recorded
--- OUTSIDE RECORDS SUMMARY | 2024-07-08 10:28 | XMS_ITS | Encounter Summary ---
Author Organization [facility] Address [address] [place] [address] Care Team Providers Care Sanitarian Name Role Phone Criss Blanco MD Unavailable Lashay Downs RN Unavailable Unavailab Duke Goodwin RN Unavailable UnavailNgozi Husain MD Unavailable [phone] Jose Roberto Marx MD Unavailable [phone] Grey Tomas MD Primary Care Provider [phone] Encounter Details Date Type Department Care Team (Late st Contact Info) Description 01/06/2019 Orders Only [facility] Health Information Management [address] [place] [address] Viraj Romeo, PA [address] [place] [address] Social History Tobacco Use Types Packs/Day Years Used Date Smoking Tobacco: Former Cigarettes 2 30 Smokeless Tobacco: Never Comments:Smoking History Pac ks/day: 2 Packs Alcohol Use Standard Drinks/Week Comments Yes 2 (1 standard drink = 0.6 oz pur e alcohol) Sex and Gender Information Value Date Recorded Sex Assigned at Not on file Legal Sex Male 12:56 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 Gender Identity Not on file Sexual Orientation Not on file documented as of this encounter Plan of Treatment Not on file documented as of this encounter Visit Diagnoses Not on filedocumented in this encounter Additional Health Concerns Infection Onset Date Last Indicated Resolved Time COVID: Suspected 10/23/2023 10/23/2023 10/24/2023 3:06 AM CDT documented as of this encounter Care Teams Sanitarian Relationship Specialty Start Date End Date Grey Tomas MD PCP - General Family Practice 07/27/22 [place] [address] [facility] [address] [place] [address] Rheumatology 02/21/17 Lashay Downs, RN Registered Nurse Pain Management 06/17/17 Duke Do, RN Registered Nurse 09/09/17 Ngozi Petty MD Radiation Oncologist Radiation Oncology 02/05/19 Jose Roberto Marx MD Referring Physician Otolaryngology 02/05/19 documented as of this encounter
--- OUTSIDE RECORDS SUMMARY | 2024-07-08 10:28 | XMS_ITS ---
Care Plan - [facility] Created on: July 08, 2024 PASQUALE HUFFMAN : 1945 Sex: Male Author Organization [facility] Address [address] [place] [address] Phone Care Team Providers Care Toy Packer Name Role Phone GRACIE ESQUEDA DO [phone]
--- OUTSIDE RECORDS SUMMARY | 2024-07-08 10:28 | XMS_ITS | Clinical Summary ---
Author Organization [facility] Address [address] [address] Phone Care Team Providers Care Wood Carver Name Role Phone Alberto Stanton MD Primary Care Provider [phone] Medications Doxepin 4% Compound Cream Apply to [...] on file Legal Sex Male 6:13 PM OIL SCOUT Gender Identity Not on file [...] Part D Address: SUSIE SANCHEZ Care Teams Wood Carver Relationship Specialty Start Date End Date Alberto Stanton MD [address] [place] [address] PCP - General Internal Medicine 12/30/14
--- OUTSIDE RECORDS SUMMARY | 2024-07-08 10:28 | XMS_ITS | Clinical Summary ---
Author Organization [facility] Address [address] [place] [address] Care Team Providers Care Talent Scout Name Role Phone Viraj Romeo Primary Care Provider [phone] Source Comments [facility],non-owned Affiliates and Associated Physician Practices is amultiple site organization consisting of ambulatory clinics and hospital sitesin [place], [place], [place] and [place]. This disclosure is being madepursuant to the Care Everywhere program and may not contain all information available regarding this patient. Last updated 18.[facility] Allergies Active Allergy Reactions Criticality Noted Date [...] age to complete this topic Care Teams Talent Scout Relationship Specialty Start Date End Date Viraj Romeo PA [address] [place] [address] PCP - General 12/28/20
--- OUTSIDE RECORDS SUMMARY | 2024-07-08 10:28 | XMS_ITS | Clinical Summary ---
Author Organization [facility] Address [address] [place] [address] Phone Care Team Providers Care Tobacco Shaker Name Role Phone GRACIE ESQUEDA DO [phone] Reason for Visit and Chief Complaint The Chief Complaint is: patient has had cough, MA, FREDERICK, sore throat, congestion, and runny nose since Saturday Problems Includes: Problems addressed during this encounter and other active Problems No Active Problems Plan of Treatment - Return to the clinic if condition worsens or new symptoms arise - Last Documented On 06/01/2022 11:57AM ; [facility] - Patient will call for appointment as needed - Last Documented On 06/01/2022 11:57AM ; [facility] Instructions to patient Instructions for patient Last Documented On 11:53AM ; [facility] Assessments Includes: Assessments from this encounter Findings - Acute upper respiratory infection - Last Documented On 06/01/2022 11:57AM ; [facility] Instructions Includes: Instructions from this encounter Instructions to patient Instructions for patient Last Documented On 11:53AM ; [facility] Medical Equipment - Implanted Devices Includes: Current Devices No Medical Equipment Recorded Medications Includes: Medications discussed during this encounter and other current Medications Current Medications (continue as prescribed) Methotrexate 2.5 MG Oral Tablet 05/31/2022 Provider: Diagnosis: Last Documented On 11:55AM By BRANDO SANCHEZ ; [facility] Finasteride 5 MG Oral Tablet 05/28/2022 Provider: FRANK LOPEZ Diagnosis: Last Documented On 11:55AM By BRANDO SANCHEZ ; [facility] Omeprazole 40 MG Oral Capsule Delayed Release 05/10/20 Provider: Diagnosis: Last Documented On 11:55AM By BRANDO SANCHEZ ; [facility] oxyCODONE HCl 5 MG Oral Tablet 05/07/2022 Provider: Diagnosis: Last Documented On 11:55AM By BRANDO SANCHEZ ; [facility] Fluticasone Propionate 50 MC G/ACT Nasal Suspension 04/12/2022 Provider: FAWN IBARRA PA-C Diagnosis: Last Documented On 11:55AM By BRANDO SANCHEZ ; [facility] Montelukast Sodium 10 MG Oral Tablet 04/12/2022 Prov ider: FAWN IBARRA PA-C Diagnosis: Last Documented On 11:55AM By BRANDO SANCHEZ ; [facility] rOPINIRole HCl 2 MG Oral Tablet 03/28/2022 Provider: FAWN IBARRA PA-C Diagnosis: Last Documented On 11:56AM By BRANDO SANCHEZ ; [facility] Medications Administered Includes: Administered Medications from this encounter No Administered Medications Recorded Vital Signs Includes: Vital Signs from this encounter Vital Name 06/01/2022 11:38A Pulse Rate-Sitting (bpm) 64 Temp-Oral (F) 98 Weight (lb) 221 Oxygen Saturation (%) 98 Last Documented: On 06/01/2022 11:39A M ; [facility] Results Includes: Results discussed during this encounter SARS COVID-19 FLU A & B [facility] Ordered by DAISHA ARIAS STRANDING MACHINE OPERATOR on 05/05 Collected: Reported: 06/01/2022 11:48 Last Documented On 11:49AM ; [facility] Reviewed on 06/01/2022; All test results are final unless otherwise noted. COVID neg N (Normal) Last Documented On 11:49AM ; [facility] INFLUENZA A neg (Negative) N (Normal) Last Documented On 11:49AM ; [facility] INFLUENZA B neg (negative) N (Normal) Last Documented On 11:49AM ; [facility] INT. QC ACCEPTABLE? yes N (Normal) Last Documented On 11:49AM ; [facility] LOT # & EXP. DATE [id number] 04/11/23 N (Normal) Last Documented On 2 11:49AM ; [facility] History of Present Illness Includes: History of [...] patient Last Documented On 2 11:53AM ; [facility] Patient verbalizes understanding Last Documented On 2 11:53AM ; [facility] Increase fluids Last Documented On 2 11:53AM ; [facility] Clinical summary provided to patient Last Documented On 2 11:53AM ; [facility] Medical History Includes: Medical History addressed during this encounter No Medical History Recorded Family History Includes: Family History addressed during this encounter Description Last Updated Family history unchanged 06/01/2022 Last Documented On 2 11:57AM ; [facility] Review of Systems Includes: Review of Systems [...] COVID SICK VISIT- NEW PATIENT BRANDO DELGADO STRANDING MACHINE OPERATOR-BC [facility] 06/01/20 22 11:32AM 11:52AM Upper Respiratory Infection Acute Insurance Includes: Active Insurance Policies Plan Name Member ID Group # Subscriber Relationship Effect marcelino Dates 1 - [facility]/MEDICARE ADV/AARP [id number] PASQUALE HUFFMAN Self Clinical Notes Includes: Clinical Notes from this encounter No Clinical Notes Recorded
--- OUTSIDE RECORDS SUMMARY | 2024-07-08 10:29 | XMS_ITS | Clinical Summary ---
Author Organization [facility] Address [address] [place] [address] Care Team Providers Care Ticket Writer Name Role Phone Criss Blanco MD Unavailable Lashay Downs RN Unavailable Unavailab Duke Goodwin RN Unavailable UnavailNgozi Husain MD Unavailable [phone] Jose Roberto Marx MD Unavailable [phone] Grey Tomas MD Primary Care Provider [phone] Allergies Active Allergy Reactions Criticality Noted Date [...] 1 tablet (5 mg total) by mouth medicare biller before breakfast Active omeprazole (PriLOSEC) 40 mg [...] (05/01/2022): Added automatically from request for surgery [id number] Lesion of vocal fold 04/25/2022 Overview (04/25/2022): Added automatically from request for surgery [id number] Adenomatous polyp of colon 04/04/2022 Pollard's esophagus [...] surveillance. Assessment & Plan (04/18/2021 11:46 AM GLOVE PARTS INSPECTOR): No evidence of disease today. 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 Plan to proceed to the OR for biopsy and laser treatment of the new right TVC lesions. Assessment & Plan (08/09/2020 3:55 PM GLOVE PARTS INSPECTOR): No evidence of disease on examination today. Continue routine surveillance. Assessment & Plan (05/20/2020 10:03 AM GLOVE PARTS INSPECTOR): No evidence of disease on examination today. Continue routine surveillance. 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 Assessment & Plan (06/23/2019 11:47 AM GLOVE PARTS INSPECTOR): His larynx looks clean after KTP laser treatment. 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 I would like to continue routine observation every 8 weeks. Assessment & Plan (05/12/2019 11:46 AM GLOVE PARTS INSPECTOR): The leukoplakia of the anterior right true [...] proceed. Assessment & Plan (04/07/2019 1:25 PM GLOVE PARTS INSPECTOR): There are 2 small punctate areas of [...] 07/01/2018 Assessment & Plan (07/01/2018 2:08 PM GLOVE PARTS INSPECTOR): Lifelong 'upset stomachj this relieved by adding [...] imaging were normal Chronic pansinusitis 01/09/2017 intermodal customer service use of drug 11/21/2016 Assessment & Plan (02/21/2017 10:12 AM CDT): Will continue to monitor the patient with routine labs. Assessment & Plan (11/21/2016 9:17 AM CDT): Will continue to monitor the patient with routine labs. 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 Medical Devices Implanted Type Area Painter Apprentice Device Identifier Shelf Expiration Date Model / Serial / Lot [place] Particle Embolization Pre Filled Foam Vial 2ml Microsphere Contour 150-250um Polyvinyl Alcohol [id number] - [id number] Implanted:Qty: 1 on 02/05/2023 at [facility] [employer] 08/21/2025 [id number] / / [id number] Plum Coil Embolization Tornado Microcoil Franklin Od3-2mm .018 In Catheter [id number] - [id number] Implanted:Qty: 1 on 02/05/2023 at [facility] [employer] 08/07/2027 [id number] / / [id number] [place] Angio-Seal Vip 6fr Closere Device [id number] - [id number] Implanted:Qty: 1 on 02/05/2023 at [facility] [employer] 08/01/2023 [id number] / / [id number] Procedures Procedure Name Priority Date/Time Associated Diagnosis Comments CT ABDOMEN PELVIS W CONTRAST ED 05/20/2018 1:12 AM GLOVE PARTS INSPECTOR from Last 3 Months or Most Recently Relevant to Health Maintenance Results * CT Abdomen Pelvis W Contrast (05/20/2018 1:12 AM GLOVE PARTS INSPECTOR) Anatomical Region Laterality Modality Body N/A Computed Tomogra phy 05/20/2018 7:08 AM GLOVE PARTS INSPECTOR Impressions 05/20/2018 7:24 AM GLOVE PARTS INSPECTOR 1. ??PERSISTENT 4 MM DISTAL RIGHT URETER STONE ALTHOUGH HYDROURETERONEPHROSIS ON THE RIGHT HAS C4 IMPROVED COMPARED WITH THE PRIOR EXAMINATION. ??THERE IS PERSISTENT LEFT LOWER POLE HYDRONEPHROSIS. ??NONOBSTRUCTING STONES WITHIN THE KIDNEYS PERSIST. 2. ??DEVELOPMENT OF MILD SPLENOMEGALY. 3. ??OTHER NONACUTE FINDINGS ABOVE. REPORT BY NAUN BOONE FOR [facility]IRTUAL RADIOLOGY 05/20/2018 AT 2:17 AM. Electronically signed by: Antelmo Travis 05/20/2018 7:[address] ABDOMEN PELVIS W CONTRAST HISTORY: Abd [...] Advance Directives For more information, please contact: [phone] Documents on File Type Date Recorded Patient Cement Finishing Supervisor Expl anation ADVANCE DIRECTIVE 03/09/2019 6:43 AM * Full Code (Latest Code Status on File) Date Activated Date Inactivated Comments 02/05/2023 11:14 AM 02/06/2023 5:10 PM * Full Code Date Activated Date Inactivated Comments 07/01/2022 9:36 PM 07/03/2022 2:45 PM Care Teams Ticket Writer Relationship Specialty Start Date End Date Grey Tomas MD PCP - General Family Practice 07/27/22 [place] [address] [facility] [address] [place] [address] Rheumatology 02/21/17 Lashay Downs, GAY Registered Nurse Pain Management 06/17/17 Duke Do, RN Registered Nurse 09/09/17 Ngozi Petty MD Radiation Oncologist Radiation Oncology 02/05/19 Jose Roberto Marx MD Referring Physician Otolaryngology 02/05/19
--- OUTSIDE RECORDS SUMMARY | 2024-07-08 10:29 | XMS_ITS | Continuity of Care Document ---
Author Organization [facility] Address [address] [facility] [address] [place] [address] Phone Care Team Providers Care Production Supervisor Trainee Name Role Phone Albina Orellana OD Unavailable [...] Diagnoses Date Provider Providers Copied on Encounter [facility], [address], [place], [place], [address], [place] tel:[phone] SEC [place] Professional Complete Exam (chief complaint) High risk medication useNexdtve age-related mclr degn, right eye, early dry stageDry eyes, bilateralCombi mazin forms of age-related cataract, bilateralChori oretinal scar of right eyeScar of cornea of right eyeBilateral ocular hypertension Oct-2 4 Reyna OD Albina. [address] [place] [address], [address], [place], [place], [address], [place]. tel:[phone] Alissa Fuentes MD.Referri Provider: Judit Wakler, [address] [facility], [place], [address]. tel:[phone] [facility], [address], [place], [place], [id number], [place] tel:[phone] SEC [place] Professional Complete Exam (chief complaint) High risk medication useScar of cornea of right eyeNexdtve age-related mclr degn, right eye, early dry stageDry eyes, bilateralCombi mazin forms of age-related cataract, bilateral Dec- 0 1 Reyna Montemayor. [address], [address], [place], [place], [address], [place]. tel:[phone] Specialist : Alissa Fuentes MD, [address] [facility] [address], [place], [address]. tel:[phone] er Provider: Alissa Fuentes MD, [address] [facility] [address] [place] [address], [address]. tel:[phone] erring Provider: Albina Orellana OD L, [address], [place], [address] . tel:[phone] [facility], [facility] [address], [place], [place], [address], [place] tel:[phone] SEC Alex[place] Professional Complete Exam (chief complaint) Nexdtve age-related mclr degn, right eye, early dry stageCombined forms of age-related cataract, right eyeAge-related nuclear cataract, left eyeScar of cornea of right eyeHigh risk medication useSkin tagChorioretin al atrophy of right eye 0 Dallas Weiss. [address] [facility], [facility] [place], [place], [address], [place]. tel:[phone] Other Provider: Alissa Fuentes MD, [address] [facility] [address], [place], [address]. tel:[phone] erring Provider: Abhishek Bonilla, [address] [facility] [address], [place], [address] . tel:[phone] [facility], [address] [place], [place] [address], [place], [place], [address], [place] tel:[phone] SEC Abran Humberto Landin Information 0 Dallas Weiss. [address] [facility], [facility], [place], [place], [address], [place]. tel:[phone] [facility], [address], [place], [place], [address], [place] tel:[phone] SEC [facility] Samuel Complete Exam (chief complaint) Combined forms of age-related cataract, right eyeCombined forms of age-related cataract, left eyeDry eyes, bilateralScar of cornea of right eyeChorioretin al scar of right eyeRPE mottling of macula 8 Aaron Spain. [address] [place], [address], [place]. tel:[phone] Referring Provider: Judit Walker, [address] [place], [address]. tel:[phone] Family History Family Member Type Diagnosis Age At Onset No Information Payers Payer name Insurance type Covered alliance party ID Authorvikram treviño(s) [facility] Mdcr Adv CI [id number] Social History Type Description Quantity Date Captured [...]
--- OUTSIDE RECORDS SUMMARY | 2024-07-08 10:29 | XMS_ITS | Clinical Summary ---
Author Organization [facility] Address [address] [place] [address] Phone Care Team Providers Care Active Directory Systems Administrator Name Role Phone Grey Tomas MD Primary Care Provider [phone] Allergies No known active allergies Medications methotrexate [...] this topic Medical Devices Implanted Type Area Interior Design Assistant Device Identifier Shelf Expiration Date Model / Serial / Lot Stent Ureteral 6fr 2.1fr 26cm 2 Pigtail Curve 2 Durometer Taper Tip Loprfl Graduated [facility] [employer] [facility] [employer] Ultra - [id number] Implanted:Qty : 1 on 02/06/2020 by Elizabeth Alba MD at [facility] IMPLANT Right: Ureter [employer] 07/16/2022 [id number] / [id number] / [id number] Insurance [facility]IC[facility] Member Subscriber Plan / Payer (Ef fective 2022-Present) Name:Samuel Sanchez Relation to Subscriber:Self Name:Samuel Sanchez Payer ID:[id number] (NAIC) Type:Not on file Address: [facility] [id number] [place] [id number] Advance Directives * Full Code (Latest Code Status on File) Date Activated Date Inactivated Comments 02/06/2020 2:19 AM 02/08/2020 4:15 PM CPR-Full Treat ment: FULL ARREST: Attempt Resuscitation/CPR wit intubation and mechanical ventilation. PRE-ARREST: Use entire range of life support measures to stabilize the patient. Care Teams Active Directory Systems Administrator Relationship Specialty Start Date End Date Grey Tomas MD [address] [place] [address] PCP - General Family Medicine 10/25/23
--- OUTSIDE RECORDS SUMMARY | 2024-07-08 10:29 | XMS_ITS ---
Author Organization [facility] Address [address] [place] [address] Care Team Providers Care Commercial Account Officer Name Role Phone Criss Blanco MD Unavailable Lashay Downs RN Unavailable Unavailab Duke Goodwin RN Unavailable UnavailNgozi Husain MD Unavailable [phone] Jose Roberto Marx MD Unavailable [phone] Grey Tomas MD Primary Care Provider [phone] Active Problems Problem Noted Date Diagnosed Date Non-seasonal allergic rhinitis 11/26/2023 Assessment & Plan (11/26/2023 3:48 PM CDT): Continue montelukast 10 mg once daily OTC antihistamine daily Avoid triggers Saline nasal rinses Subdural hematoma 02/05/2023 Chronic panethmoidal sinusitis 01/31/2023 SDH (subdural hematoma) 07/01/2022 Dysplasia of larynx 05/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 Assessment & Plan (04/18/2021 11:46 AM ESCORT CAR DRIVER): No evidence of disease today. However he [...] CDT): 75 yo M with a h/o [id number] TVC SCCA s/p KTP laser, presenting with new right TVC lesions concerning for malignancy. Plan to proceed to the OR for biopsy and laser treatment of the new right TVC lesions. Assessment & Plan (08/09/2020 3:55 PM ESCORT CAR DRIVER): No evidence of disease on examination today. Continue routine surveillance. Assessment & Plan (05/20/2020 10:03 AM ESCORT CAR DRIVER): No evidence of disease on examination today. Continue routine surveillance. Assessment & Plan (04/08/2020 9:16 AM ESCORT CAR DRIVER): There are new areas of leukoplakia on [...] surveillance. Assessment & Plan (06/23/2019 11:47 AM ESCORT CAR DRIVER): His larynx looks clean after KTP laser treatment. 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 I would like to continue routine observation every 8 weeks. Assessment & Plan (05/12/2019 11:46 AM ESCORT CAR DRIVER): The leukoplakia of the anterior right true [...] proceed. Assessment & Plan (04/07/2019 1:25 PM ESCORT CAR DRIVER): There are 2 small punctate areas of [...] 07/01/2018 Assessment & Plan (07/01/2018 2:08 PM ESCORT CAR DRIVER): Lifelong 'upset stomachj this relieved by adding [...] chest imaging were normal Chronic pansinusitis 01/09/2017 director long term care use of drug 11/21/2016 Assessment & Plan (02/21/2017 10:12 AM CDT): Will continue to monitor the patient with routine labs. Assessment & Plan (11/21/2016 9:17 AM CDT): Will continue to monitor the patient with routine labs. 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 Treatments may have been administered in another system. Lifetime Dose Tracking * Chemical Lifetime Dose Automatic Entry Manual Entr y Fluoro Time 40.382 minutes 40.382 minutes 0 minutes Air kerma at the reference point (Ka,r) 2,371.47 mGy 2 ,371.47 mGy 0 mGy DLP 5,625 mGycm 5,625 mGycm 0 mGycm
--- OUTSIDE RECORDS SUMMARY | 2024-07-08 10:29 | XMS_ITS | Patient Health Summary ---
Author Organization [facility] Address [address] [place] [address] Care Team Providers Care Greenhouse Staff Name Role Phone Viraj Romeo Primary Care Provider [phone] Note from [facility] [place],non-owned Affiliates and Associated Physician Practices is amultiple site organization consisting of ambulatory clinics and hospital sitesin [place], [place], [place] and [place]. This disclosure is being madepursuant to the Care Everywhere program and may not contain all information available regarding this patient. Last updated 18.[facility] Allergies * Hydrocodone(Itching) -Low Criticality * [...] (STL)(Performed 11/08/2021) Performed for Diagnosis deferred * [place] EGD FLEX TRANSORAL DX(Performed 11/08/2021) * [...] Diagnosis unknown * COLONOSCOPY SCREEN(Performed 03/14/2020) * [place] ED EGD FLEX TRANSORAL DX(Performed 03/14/2020) * [...] Case Report Surgical Pathology Report ? Case: [id number] ? Authorizing Provider: ??Loyd Thao MD ? Collected: ? 11/08/2021 09:49 AM ? Ordering Location: ? [facility] ?Received: ?11/08/2021 10:33 AM [...] sessile serrated adenoma. 11/10/2021 12:14 PM T [facility] Disclaimer All histochemical and/or immunohistochemical results are interpreted with controls that demonstrate appropriate staining reactions before reporting results. Note on use of immunocytochemistry reagents: This test was developed and its performance characteristic determined by [facility], Department of Laboratory Medicine. It [...] interpreted with caution. 11/10/2021 12:14 PM CDT [facility] Embedded Images 11/10/2021 12:14 PM CDT [facility] Pathology/Cytology ESOPHAGEAL BIOPSY SPECIMEN / Unknown 11/08/2021 9:49 AM CDT 11/08/2021 10:33 AM CDT Miscellaneous samples (specimen) POLYP OF COLON / Unknown 11/08/2021 10:07 AM CDT 11/08/2021 10:33 AM CDT Loyd Thao MD LAB - PATHOLOGY/CYT OLOGY ORDERABLES [facility] [address] [place] [address] * HELICOBACTER PYLORI UREASE (STL) (11/08/2021 9:48 AM CDT) Only the most recent of2 resultswithin the time period is included. Helicobacter pylori Urease Initial Negative Negative 11/09/2021 10:17 AM CDT [facility] Helicobacter pylori Urease Final Negative Negative 11/09/2021 10:17 AM CDT [facility] Comment:This is an appended report. These results have been appended to a previously preliminary verified report. Microbiology GASTRIC ANTRAL BIOPSY SPECIMEN / Unknown 11/08/2021 9:48 AM CDT 11/08/2021 1:48 PM CDT Loyd Thao MD LAB - MICROBIOLOGY ORDERABLES [facility] [address] [place] [address] * EGD (11/08/2021 8:53 AM [...] the physician, the nurse and the ? mobile lounge driver or operator in the procedure room. Mental Status ? [...] Procedure Code(s): ? --- Professional --- ? 78921, Esophagogastroduod enoscopy, flexible, transoral; with biopsy, ? single or multiple ? --- Technical --- ? 58673, Esophagogastroduod enoscopy, flexible, transoral; with biopsy, ? single or multiple Diagnosis Code(s): ? --- Professional --- ? 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 K29.70, Gastritis, unspecified, without bleeding ? K21.9, Gastro-esophageal reflux disease without esophagitis ? --- Technical --- ? 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 K29.70, Gastritis, unspecified, without bleeding ? K21.9, Gastro-esophageal reflux disease without esophagitis CPT copyright 2019 [employer]. All rights reserved. The codes documented in this report are preliminary and upon armature balancer review may be revised to meet current compliance requirements. Dr. Loyd Thao MD Loyd Thao MD 11/08/2021 9:50:09 AM This report has been signed electronically. Number of Addenda: 0 Note Initiated On: 11/08/2021 8:53 AM [facility] 11/08/2021 8:53 AM CDT Loyd Thao MD GI PROCEDURE ORDERA KIERANS [facility] S[place] Reyes [id number] * ENDOSCOPY, COLON, SCREENING (11/08/2021 8:52 AM [...] the physician, the nurse and the ? mobile lounge driver or operator in the procedure room. Mental Status ? [...] Procedure Code(s): ? --- Professional --- ? 57220, Colonoscopy, flexible; with removal of tumor(s), polyp(s), or ? other lesion(s) by snare technique ? --- Technical --- ? 40414, Colonoscopy, flexible; with removal of tumor(s), polyp(s), [...] abscess ? without bleeding CPT copyright 2019 [employer]. All rights reserved. The codes documented in this report are preliminary and upon armature balancer review may be revised to meet current compliance requirements. Dr. Loyd Thao MD Loyd Thao MD 11/08/2021 10:13:01 AM This report has been signed electronically. Number of Addenda: 0 Note Initiated On: 11/08/2021 8:52 AM [facility] 11/08/2021 8:52 AM CDT Loyd Thao MD GI PROCEDURE ORDERA VINAY [facility] [place] [address] * CT ABDOMEN PELVIS W CONTRAST (03/30/2020 [...] - 1.20 mg/dL 03/30/2020 10:13 AM CDT [facility] Blood BLOOD SPECIMEN / Unknown 03/30/2020 10:00 AM CDT 03/30/2020 10:13 AM CDT Rojas Zuniga MD LAB - POINT OF CARE ORDERABLES [facility] [address] [place] [address] * MRI LUMBAR SPINE WO [...] Procedure Code(s): ? --- Professional --- ? 45203, Colonoscopy, flexible; with removal of tumor(s), polyp(s), or ? other lesion(s) by snare technique ? --- Technical --- ? 90557, Colonoscopy, flexible; with removal of tumor(s), polyp(s), [...] R10.84, Generalized abdominal pain CPT copyright 2017 [employer]. All rights reserved. The codes documented in this report are preliminary and upon armature balancer review may be revised to meet current compliance requirements. Dr. Rojas Zuniga M.D. Rojas Zuniga MD 03/14/2020 12:47:22 PM Number of Addenda: 0 Note Initiated On: 03/14/2020 9:53 AM [facility] 03/14/2020 9:53 AM CDT Zelda Batista STATIONARY BOILER FIREMAN-MDM DEVELOPER GI PROCEDURE OR DERABLES [facility] [address] [id number] * EGD (03/14/2020 9:26 AM CDT) Report [...] Procedure Code(s): ? --- Professional --- ? 65045, Esophagogastroduode noscopy, flexible, transoral; with biopsy, ? single or multiple ? --- Technical --- ? 65411, Esophagogastroduode noscopy, flexible, transoral; with biopsy, ? [...] R10.84, Generalized abdominal pain CPT copyright 2017 [employer]. All rights reserved. The codes documented in this report are preliminary and upon armature balancer review may be revised to meet current compliance requirements. Dr. Rojas Zuniga M.D. Rojas Zuniga MD 03/14/2020 12:32:00 PM Number of Addenda: 0 Note Initiated On: 03/14/2020 9:26 AM [facility] 03/14/2020 9:26 AM CDT Rojas Zuniga MD GI PROCEDURE ORDERAB LES [facility] [place] [address] * XR CHEST PA AND LATERAL (06/05/2016 10:58 AM EMBOSSER APPRENTICE) Anatomical Region Laterality Modality Chest Radiographic Corin ging 06/05/2016 1:44 PM EMBOSSER APPRENTICE Impressions 06/05/2016 1:44 PM EMBOSSER APPRENTICE Clear lungs. Narrative 06/05/2016 1:44 PM EMBOSSER APPRENTICE Chest x-ray 2 views. HISTORY: Rheumatoid arthritis. [...] DERMATOLOGY (03/15/2016 12:00 AM CDT) Result CASE: [id number] PATIENT: MARY SANCHEZ PATHOLOGIC DIAGNOSIS: Back: BENIGN VERRUCOUS KERATOSIS CLINICAL DATA: Irritated SK GROSS DESCRIPTION: Received is one formalin filled container labeled with the patients name. The specimen consists of a shave biopsy measuring 7u6m1cb. Jar 0. MICROSCOPIC DESCRIPTION: Sections show hyperkeratosis, papillomatosis, hypergranulosis , and acanthosis. ??These histological findings can be seen in a verruca vulgaris or a seborrheic keratosis. Electronically signed out by Stephanie Hyman M.D. 03/20/2016 2:52:57PM [facility] Comment: Performed at: Dermatopathology Laboratory [facility] Department of Dermatology [address] [place] [address], 5th [place] [address] Phone number: [phone] FAX: [phone] 03/15/2016 03/19/2016 Historical Provider MD LAB - PATHOLOGY/C YTOLOGY ORDERABLES [facility] [address] [place] [address]. [address] [place] [address], [facility] [phone] Care Teams Greenhouse Staff Relationship Specialty Start Date End Date Viraj Romeo PA [address] [place] [address] PCP - General 12/28/20
--- OUTSIDE RECORDS SUMMARY | 2024-07-08 10:29 | XMS_ITS | Referral Summary ---
Author Organization [facility] Address [address] [place] [address] Care Team Providers Care Grain Drier Operator Name Role Phone Criss Blanco MD Unavailable Lashay Downs RN Unavailable Unavailab Duke Goodwin RN Unavailable UnavailNgozi Husain MD Unavailable [phone] Jose Roberto Marx MD Unavailable [phone] Grey Tomas MD Primary Care Provider [phone] Allergies Active Allergy Reactions Criticality Noted Date [...] tablet (5 mg total) by mouth mine motor engineer before breakfast Active omeprazole (PriLOSEC) 40 mg [...] (05/01/2022): Added automatically from request for surgery [id number] Lesion of vocal fold 04/25/2022 Overview (04/25/2022): Added automatically from request for surgery [id number] Adenomatous polyp of colon 04/04/2022 Pollard's esophagus [...] surveillance. Assessment & Plan (04/18/2021 11:46 AM QUALITY ASSURANCE SUPERVISOR CHASSIS): No evidence of disease today. However he [...] CDT): 75 yo M with a h/o [id number] TVC SCCA s/p KTP laser, presenting with new right TVC lesions concerning for malignancy. Plan to proceed to the OR for biopsy and laser treatment of the new right TVC lesions. Assessment & Plan (08/09/2020 3:55 PM QUALITY ASSURANCE SUPERVISOR CHASSIS): No evidence of disease on examination today. Continue routine surveillance. Assessment & Plan (05/20/2020 10:03 AM QUALITY ASSURANCE SUPERVISOR CHASSIS): No evidence of disease on examination today. Continue routine surveillance. Assessment & Plan (04/08/2020 9:16 AM QUALITY ASSURANCE SUPERVISOR CHASSIS): There are new areas of leukoplakia on [...] surveillance. Assessment & Plan (06/23/2019 11:47 AM QUALITY ASSURANCE SUPERVISOR CHASSIS): His larynx looks clean after KTP laser treatment. 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 I would like to continue routine observation every 8 weeks. Assessment & Plan (05/12/2019 11:46 AM QUALITY ASSURANCE SUPERVISOR CHASSIS): The leukoplakia of the anterior right true [...] proceed. 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) 07/03/2011 Overview (02/21/2017): RHEUMATOID ARTHRITIS Positive RF [...] Trivalent, IM (MDV) 5,04/08/2014,06/14/2013,06/13,02/05/2011 Influenza, Unspecified 03/04/2019 [employer] ([employer]) SARS-CoV-2 Vaccination 11/14/2021, 08/08/2020 Pneumococcal Conjugate [...] on file Legal Sex Male 12:56 AM QUALITY ASSURANCE SUPERVISOR CHASSIS Gender Identity Not on file Sexual Orientation [...] stairs Contact your local community or senior patch grove for information on exercise, fall prevention programs, or options for improving home safety. Medical Devices Implanted Type Area C Application Developer Device Identifier Shelf Expiration Date Model / Serial / Lot REEL Qualified Particle Embolization Pre Filled Foam Vial 2ml Microsphere Contour 150-250um Polyvinyl Alcohol [id number] - [id number] Implanted:Qty: 1 on 02/05/2023 at [facility] [employer]om Eliza 08/21/2025 [id number] / / [id number] [employer] Coil Embolization Tornado Microcoil [place] Od3-2mm .018 In Catheter [id number] - [id number] Implanted:Qty: 1 on 02/05/2023 at [facility] [employer] 08/07/2027 [id number] / / [id number] [employer] Angio-Seal Vip 6fr Closere Device [id number] - [id number] Implanted:Qty: 1 on 02/05/2023 at [facility] [employer] 08/01/2023 [id number] / / [id number] Procedures Procedure Name Priority Date/Time Associated Diagnosis Comments CT ABDOMEN PELVIS W CONTRAST ED 05/20/2018 1:12 AM QUALITY ASSURANCE SUPERVISOR CHASSIS from Last 3 Months or Most Recently Relevant to Health Maintenance Results * CT Abdomen Pelvis W Contrast (05/20/2018 1:12 AM QUALITY ASSURANCE SUPERVISOR CHASSIS) Anatomical Region Laterality Modality Body N/A Computed Tomogra phy 05/20/2018 7:08 AM QUALITY ASSURANCE SUPERVISOR CHASSIS Impressions 05/20/2018 7:24 AM QUALITY ASSURANCE SUPERVISOR CHASSIS 1. ??PERSISTENT 4 MM DISTAL RIGHT URETER STONE ALTHOUGH HYDROURETERONEPHROSIS ON THE RIGHT HAS C4 IMPROVED COMPARED WITH THE PRIOR EXAMINATION. ??THERE IS PERSISTENT LEFT LOWER POLE HYDRONEPHROSIS. ??NONOBSTRUCTING STONES WITHIN THE KIDNEYS PERSIST. 2. ??DEVELOPMENT OF MILD SPLENOMEGALY. 3. ??OTHER NONACUTE FINDINGS ABOVE. REPORT BY [facility] 05/20/2018 AT 2:17 AM. Electronically signed by: Antelmo Travis 05/20/2018 7:24 AM QUALITY ASSURANCE SUPERVISOR CHASSIS CT ABDOMEN PELVIS W CONTRAST HISTORY: Abd [...] Recently Relevant to Health Maintenance Insurance MEDICARE [employer] INSURANCE COMPANY MEDICARE [employer] Advance Directives For more information, please contact: [phone] Documents on File Type Date Recorded Patient Targeting Acquisition Officer Expl anation ADVANCE DIRECTIVE 03/09/2019 6:43 AM * Full Code (Latest Code Status on File) Date Activated Date Inactivated Comments 02/05/2023 11:14 AM 02/06/2023 5:10 PM * Full Code Date Activated Date Inactivated Comments 07/01/2022 9:36 PM 07/03/2022 2:45 PM Care Teams Grain Drier Operator Relationship Specialty Start Date End Date Grey Tomas MD PCP - General Family Practice 07/27/22 [place] [address] [address] [place] [address] Rheumatology 02/21/17 Lashay Downs, RN Registered Nurse Pain Management 06/17/17 Duke Do, RN Registered Nurse 09/09/17 Ngozi Petty MD Radiation Oncologist Radiation Oncology 02/05/19 Jose Roberto Marx MD Referring Physician Otolaryngology 02/05/19
--- OUTSIDE RECORDS SUMMARY | 2024-07-08 10:29 | XMS_ITS | Encounter Summary ---
Author Organization [facility] Address [address] [place] [address] Care Team Providers Care Marine Technician Name Role Phone Criss Blanco MD Unavailable Lashay Downs RN Unavailable Unavailab Duke Goodwin RN Unavailable UnavailNgozi Husain MD Unavailable [phone] Jose Roebrto Marx MD Unavailable [phone] Grey Tomas MD Primary Care Provider [phone] Encounter Details Date Type Department Care Team (Late st Contact Info) Description 08/15/2020 Telephone Pain Management Center at [facility] [address] [address], [address] [place] [address] Kaykay Reyes MD [address] [place] [address] Social History Tobacco Use Types [...] file Legal Sex Male 12:56 AM STEAM FITTER HELPER Gender Identity Not on file Sexual [...] as of this encounter Care Teams Marine Technician Relationship Specialty Start Date End Date Grey Tomas MD PCP - General Family Practice 07/27/22 [place] [address] [facility] [address] [place] [address] Rheumatology 02/21/17 Lashay Downs, GAY Registered Nurse Pain Management 06/17/17 Duke Do, GAY Registered Nurse 09/09/17 Ngozi Petty MD Radiation Oncologist Radiation Oncology 02/05/19 Jose Roberto Marx MD Referring Physician Otolaryngology 02/05/19 documented as of this encounter
--- OUTSIDE RECORDS SUMMARY | 2024-07-08 10:29 | XMS_ITS | Referral Summary ---
Author Organization [facility] Address [address] [place] [address] Care Team Providers Care Senior Analyst Market Intelligence Name Role Phone Viraj Romeo Primary Care Provider [phone] Source Comments [facility],non-owned Affiliates and Associated Physician Practices is amultiple site organization consisting of ambulatory clinics and hospital sitesin [place], [place], [place] and [place]. This disclosure is being madepursuant to the Care Everywhere program and may not contain all information available regarding this patient. Last updated 18.[facility] Allergies Active Allergy Reactions Criticality Noted Date [...] of Treatment Not on file Care Teams Senior Analyst Market Intelligence Relationship Specialty Start Date End Date Viraj Romeo PA [address] [place] [id number] PCP - General 12/28/20
--- OUTSIDE RECORDS SUMMARY | 2024-07-08 10:29 | XMS_ITS | Continuity of Care Document ---
Author Organization [facility] Address [address] [place] [address] Phone Care Team Providers Care Golf Club Facer Name Role Phone Tuan GARCIA, Adalid Unavailable [...] [facility] , [address], [place], [address], tel:[phone] [facility] Follow up (chief complaint) Chronic coughChronic GERDOther seasonal allergic rhinitisLaryng eal cancer 3 Tuan Hamsa. [address], [place], [place], [id number]. tel:[phone] OFFICE/OUTPA TIENT VISIT EST [facility] , [address], [place], [address], tel:[phone] [facility] allergy evaluation (chief complaint) Body mass index [BMI] 27.0-27.9, adultChronic coughChronic panethmoidal sinusitisOther seasonal allergic rhinitisOther allergic rhinitisChroni c GERD 3 Tuan Hamsa. [address], [place], [place], [id number]. tel:[phone] OFFICE/OUTPA TIENT VISIT NEW [facility] , [address], [place], [address], [place] tel:[phone] [facility] allergy evaluation (chief complaint) CoughChronic pansinusitisAl lergy to pollen 7 Tuan Hamsa. [address], [place], [place], [id number]. tel:[phone] OFFICE/OUTPA TIENT VISIT EST [facility] , [address], [place], [address], [place] tel:[phone] [facility] nasal congestion (chief complaint)o ccasional coughing (chief complaint) Chronic nasopharyngiti s 2 Tuan Hamsa. [address], [place], [place], [id number]. tel:[phone] OFFICE/OUTPA TIENT VISIT EST [facility] , [address] , [place], [address], [place] tel:[phone] [facility] follow up (chief complaint) Chronic rhinitisChroni c rhinitis 2 Tuan Hamsa. [address], [place], [place], [id number]. tel:[phone] OFFICE/OUTPA TIENT VISIT EST [facility] , [address], [place], [address], [place] tel:[phone] [facility] sick (chief complaint) Cough 2 Tuan Hamsa. [address], [place], [place], [id number]. tel:[phone] OFFICE OUTPT EST 25 MIN [facility] , [address], [place], [address], [place] tel:[phone] [facility] follow up (chief complaint) Chronic nasopharyngiti sRespiratory abnormality, unspecified 2 Tuan Hamsa. [address], [place], [place], [address]. tel:[phone] Family History Family Member Type Diagnosis Age At Onset No Information Immunizations Vaccine Date Status Comments Influenza, quadrivalent, hig h dose, injectable, split virus, preservative free, 0.7 mL dose, Fluzone High-Dose Quad administered Source: Other Provid er Pneumococcal polysaccharide PPV23 adminis tered Source: Other Provider SARS-COV-2 (COVID-19) vaccin e, vector non-replicating, recombinant spike protein-Ad26, preservative free, 0.5 mL (Good.Co) administered Source: Other Provid er Payers Payer name Insurance type Covered green party ID Authorvikram treviño(s) [facility] Medicare Complete HMO OT [id number] Social History Type Description Quantity Date Captured [...] this time. allergy evaluation 77[facility] in 2016 [...] worse for 2 years, he saw Dr Hernnádez and had sinus surgery allergy - he [...]
[2024-07-08 11:02] LABS: Prostate Specific Antigen 2.4 ng/mL (< OR = 4.0)
== END 2024-07-08 09:42 | disposition home or self-care (01) ==
LOC: ANHLAB 09:44
PROVIDERS: PCP Family Medicine; Visit Provider Family Medicine
DX: R97.20 Elevated prostate specific antigen [PSA] (principal); N30.90 Cystitis, unspecified without hematuria; Z12.5 Encounter for screening for malignant neoplasm of prostate
CPT/HCPCS: 36415; 81001; 84153; 87086; 87186; G0103

== ENCOUNTER 2024-09-09 07:35 | Outpatient (CLI) | payer MEDICARE, SELFPAY ==
--- OUTSIDE RECORDS SUMMARY | 2024-09-09 07:38 | XMS_ITS ---
Author Organization [facility] Address [address] [place] [address] Care Team Providers Care Drencher Name Role Phone Criss Blanco MD Unavailable Lashay Downs RN Unavailable Unavailab Duke Goodwin RN Unavailable UnavailNgozi Husain MD Unavailable [phone] Jose Roberto Marx MD Unavailable [phone] Grey Tomas MD Primary Care Provider [phone] Active Problems Problem Noted Date Diagnosed Date Non-seasonal allergic rhinitis 11/26/2023 Assessment & Plan (11/26/2023 3:48 PM CDT): Continue montelukast 10 mg once daily OTC antihistamine daily Avoid triggers Saline nasal rinses Subdural hematoma 02/05/2023 Chronic panethmoidal sinusitis 01/31/2023 SDH (subdural hematoma) 07/01/2022 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 However he [...] CDT): 75 yo M with a h/o [id number] TVC SCCA s/p KTP laser, presenting with new right TVC lesions concerning for malignancy. Plan to proceed to the OR for biopsy and laser treatment of the new right TVC lesions. Assessment & Plan (08/09/2020 3:55 PM MANAGER FIELD SERVICES): No evidence of disease on examination today. Continue routine surveillance. Assessment & Plan (05/20/2020 10:03 AM MANAGER FIELD SERVICES): No evidence of disease on examination today. Continue routine surveillance. 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 I would like to continue routine observation every 8 weeks. Assessment & Plan (05/12/2019 11:46 AM MANAGER FIELD SERVICES): The leukoplakia of the anterior right true [...] Assessment & Plan (04/07/2019 1:25 PM MANAGER FIELD SERVICES): There are 2 small punctate areas of [...] Assessment & Plan (07/01/2018 2:08 PM MANAGER FIELD SERVICES): Lifelong 'upset stomachj this relieved by adding [...] chest imaging were normal Chronic pansinusitis 01/09/2017 correction use of drug 11/21/2016 Assessment & Plan (02/21/2017 10:12 AM CDT): Will continue to monitor the patient with routine labs. Assessment & Plan (11/21/2016 9:17 AM CDT): Will continue to monitor the patient with routine labs. 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 Past Treatment and Therapy Plans No past plan information found. Lifetime Dose Tracking * Chemical Lifetime Dose Automatic Entry Manual Entr y Fluoro Time 40.382 minutes 40.382 minutes 0 minutes Air kerma at the reference point (Ka,r) 2,371.47 mGy 2 ,371.47 mGy 0 mGy DLP 5,625 mGycm 5,625 mGycm 0 mGycm
--- OUTSIDE RECORDS SUMMARY | 2024-09-09 07:38 | XMS_ITS | Encounter Summary ---
Author Organization [facility] Address [address] [place] [address] Care Team Providers Care Ethanol Operator Name Role Phone Alberto Stanton MD Primary Care Provider Reason for Visit * Reason Comments Medication Refill Encounter Details Date Type Department Care Team (Late st Contact Info) Description 09/10/2019 Refill [facility] [address] [place] [id number] Nathanael Fairchild MD [address] [place] [address] Social History Tobacco Use Types Packs/Day Years Used Date Smoking Tobacco: Never Assessed Sex and Gender Information Value Date Recorded Sex Assigned at Not on file Legal Sex Male 6:13 PM TRAINING AND DEVELOPMENT MANAGER Gender Identity Not on file Sexual Orientation Not on file documented as of this encounter Plan of Treatment Not on file documented as of this encounter Visit Diagnoses Not on filedocumented in this encounter Care Teams Ethanol Operator Relationship Specialty Start Date End Date Alberto Stanton MD [address] [place] [address] PCP - General Internal Medicine 06/01/14 documented as of this encounter
--- OUTSIDE RECORDS SUMMARY | 2024-09-09 07:38 | XMS_ITS | Clinical Summary ---
Author Organization [facility] Address [address] [place] [address] Care Team Providers Care Supervisor Assembly Room Name Role Phone Criss Blanco MD Unavailable Lashay Downs RN Unavailable Unavailab Duke Goodwin RN Unavailable UnavailNgozi Husain MD Unavailable [phone] Jose Roberto Marx MD Unavailable [phone] Grey Tomas MD Primary Care Provider [phone] Allergies Active Allergy Reactions Criticality Noted Date [...] 1 tablet (5 mg total) by mouth fitness services manager before breakfast Active omeprazole (PriLOSEC) 40 mg [...] mouth daily 30 tablet 11 4 11/26/19 25 Active Additional Information Patient not taking.Reported on 08/21/2024 omega-3 fatty acids-fish oil 300-1,000 mg capsule Take 2 capsules (2 g total) by mouth daily Active Active Problems Problem Noted Date Diagnosed Date Non-seasonal allergic rhinitis 11/26/2023 Assessment & Plan (11/26/2023 3:48 PM CDT): Continue montelukast 10 mg once daily OTC antihistamine daily Avoid triggers Saline nasal rinses Subdural hematoma 02/05/2023 Chronic panethmoidal sinusitis 01/31/2023 SDH (subdural hematoma) 07/01/2022 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 Assessment & Plan (04/18/2021 11:46 AM DRYING ROOM ATTENDANT): No evidence of disease today. However he [...] CDT): 75 yo M with a h/o [id number] TVC SCCA s/p KTP laser, presenting with new right TVC lesions concerning for malignancy. Plan to proceed to the OR for biopsy and laser treatment of the new right TVC lesions. Assessment & Plan (08/09/2020 3:55 PM DRYING ROOM ATTENDANT): No evidence of disease on examination today. Continue routine surveillance. Assessment & Plan (05/20/2020 10:03 AM DRYING ROOM ATTENDANT): No evidence of disease on examination today. Continue routine surveillance. Assessment & Plan (04/08/2020 9:16 AM DRYING ROOM ATTENDANT): There are new areas of leukoplakia on [...] surveillance. Assessment & Plan (06/23/2019 11:47 AM DRYING ROOM ATTENDANT): His larynx looks clean after KTP laser treatment. 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 I would like to continue routine observation every 8 weeks. Assessment & Plan (05/12/2019 11:46 AM DRYING ROOM ATTENDANT): The leukoplakia of the anterior right true [...] proceed. Assessment & Plan (04/07/2019 1:25 PM DRYING ROOM ATTENDANT): There are 2 small punctate areas of [...] 07/01/2018 Assessment & Plan (07/01/2018 2:08 PM DRYING ROOM ATTENDANT): Lifelong 'upset stomachj this relieved by adding [...] neoplasm of prostate 06/03/1998 Overview (04/30/2022): prostate Encounters Date Type Department Care Team Description 08/21/2024 10:00 AM CDT Office Visit [facility] - [facility] [address] [place] [address] [place] [id number] Anjel Cisneros MD Carcinoma in situ of larynx (Primary Dx); Lesion of vocal fold; Dysphonia 07/15/2024 Telephone [facility] - [facility] [address] [place] [address] [place] [id number] Adele Bolivar MS from Last 3 Months Immunizations Immunization Administration Dates Next Due H1N1 All Forms 04/20/2010 Influenza, Quadrivalent, Hig h Dose, Preservative Free, Intrr 01/21/2020 Influenza, Quadrivalent, Rec ombinant, Egg Free, Preservative Free, Intramuscular 03/13/2021 Influenza, Quadrivalent, Spl it, Intramuscular 04/03/2016 Influenza, Split 03/19/2010,03/03/2009 Influenza, Trivalent, High D ose, Split, Preservative Free, Intramuscular 03/30/2019,03/17/2018,03/16/2018,02/09,04/04/2016 Influenza, Trivalent, IM (MDV) 5,04/08/2014,06/14/2013,06/13,02/05/2011 Influenza, Unspecified 03/04/2019 Instant AV (J&J) SARS-CoV-2 Vaccination 11/14/2021, 08/08/2020 Pneumococcal Conjugate PCV 13 02/09/2017 Pneumococcal Polysaccharide PPV23 2021,03/17/2018,03/16/2018,02/05 Tdap 06/30/2019 Tetanus toxoid, adsorbed 06/22/2004 ZOSTER LIVE 04/04/2016 Surgical History Surgery Date Site/Laterality Comments BICEPS TENODESIS Left 1969' EAR SURGERY Left repair perforated eardrum 1969' ORCHIECTOMY Right 1969's VASECTOMY 1969' ROTATOR CUFF REPAIR Right and removal of bone spurs LITHOTRIPSY 5 or 6 times - [id number] LARYNGOSCOPY 01/09/2019 Right Direct laryngoscopy with biopsy [...] Medical hemorroids; Com ments: [facility] [place] Hx Other Medical bladder infecti on Hx Other Medical kidney stone Cancer of vocal cord (HCC) Depression Gastric reflux Allergic rhinitis Rheumatoid [...] on file Legal Sex Male 12:56 AM DRYING ROOM ATTENDANT Gender Identity Not on file Sexual Orientation Not on file Occupation Industry Job Start Date Job End Date Retired Not on file Not on file Not on file Obstetrics History Last Filed Vital Signs Vital Sign Reading Time Taken Comments Blood Pressure 130/70 11/26/2023 11:01 AM CDT Pulse 78 11/26/2023 11:01 AM CDT Temperature 36.3 C (97.3 F) 11/26/2023 11:01 AM CDT Respiratory Rate 16 11/26/2023 11:01 AM CDT Oxygen Saturation 98% 11/26/2023 11:01 AM CDT Inhaled Oxygen Concentration - - Weight 102 kg (224 lb 12.8 oz) 08/21/2024 9:48 A M CDT Height 182.9 cm (6') 11/26/2023 11:01 AM CDT Body Mass Index 30.49 11/26/2023 11:01 AM CDT Plan of Treatment Health Maintenance Due Date Last Done Comments Hepatitis B Screening 1963 Well Visit 65+ 2008 Zoster Vaccine (2 of 3) 05/30/2016 04/04/2016 Depression Screening 12/05/2022 12/05/2021, 12/05/2021, 06/17/2017, Additional history exists Covid-19 Vaccine (3 - 2023-2 5 season) 2024 11/14/2021, 08/08/2020 Influenza Vaccine (#1) 2024 1, 01/21/2020, 03/30/2019, Additional history exists Fall Risk Assessment 02/06/2024 02/05/2023, 09/27/2020, 08/23/2020, Additional history exists DTaP/Tdap/Td Vaccine (2 - Td or Tdap) 06/30/2029 06/30/2019, 06/22/2004 Abdominal Aortic Aneurysm (A AA) Screen Completed [...] home safety. Medical Devices Implanted Type Area Mixer Foam Rubber Device Identifier Shelf Expiration Date Model / Serial / Lot 5min Media Eliza Particle Embolization Pre Filled Foam Vial 2ml Microsphere Contour 150-250um Polyvinyl Alcohol [id number] - [id number] Implanted:Qty: 1 on 02/05/2023 at [facility] [employer] Eliza 08/21/2025 [id number] / / [id number] [employer] Coil Embolization Tornado Microcoil Ambler Od3-2mm .018 In Catheter [id number] - [id number] Implanted:Qty: 1 on 02/05/2023 at [facility] [employer] 08/07/2027 [id number] / / [id number] [employer] Angio-Seal Vip 6fr Closere Device [id number] - [id number] Implanted:Qty: 1 on 02/05/2023 at [facility] [employer] 08/01/2023 [id number] / / [id number] Procedures Procedure Name Priority Date/Time Associated Diagnosis Comments CT ABDOMEN PELVIS W CONTRAST ED 05/20/2018 1:12 AM DRYING ROOM ATTENDANT from Last 3 Months or Most Recently Relevant to Health Maintenance Results * CT Abdomen Pelvis W Contrast (05/20/2018 1:12 AM DRYING ROOM ATTENDANT) Anatomical Region Laterality Modality Body N/A Computed Tomogra phy 05/20/2018 7:08 AM DRYING ROOM ATTENDANT Impressions 05/20/2018 7:24 AM DRYING ROOM ATTENDANT 1. PERSISTENT 4 MM DISTAL RIGHT URETER STONE ALTHOUGH HYDROURETERONEPHROSIS ON THE RIGHT HAS C4 IMPROVED COMPARED WITH THE PRIOR EXAMINATION. THERE IS PERSISTENT LEFT LOWER POLE HYDRONEPHROSIS. NONOBSTRUCTING STONES WITHIN THE KIDNEYS PERSIST. 2. DEVELOPMENT OF MILD SPLENOMEGALY. 3. OTHER NONACUTE FINDINGS ABOVE. REPORT BY [facility] 05/20/2018 AT 2:17 AM. Electronically signed by: Antelmo Travis 05/20/2018 7:24 [address] ABDOMEN PELVIS W CONTRAST HISTORY: Abd [...] only adipose tissue. Degenerative disc disease L2-L3. Procedure Note Luis Michaud [...] Recently Relevant to Health Maintenance [place] [address] [employer] INSURANCE [employer]GR[employer] [facility] MEDICARE ADVANTAGE Member Subscriber Plan / Payer (Ef fective 2022-Present) Name:Samuel Sanchez Relation to Subscriber:Self Name:Samuel Sanchez Payer ID:[id number] (NAIC) Type:[facility] MEDICARE Address: [place] [id number] Advance Directives For more information, please contact: [phone] Documents on File Type Date Recorded Patient Structures Engineer Expl anation ADVANCE DIRECTIVE 03/09/2019 6:43 AM * Full Code (Latest Code Status on File) Date Activated Date Inactivated Comments 02/05/2023 11:14 AM 02/06/2023 5:10 PM * Full Code Date Activated Date Inactivated Comments 07/01/2022 9:36 PM 07/03/2022 2:45 PM Care Teams Supervisor Assembly Room Relationship Specialty Start Date End Date Grey Tomas MD PCP - General Family Practice 07/27/22 [place] [address] [facility] [address] [place] [address] Rheumatology 02/21/17 Lashay Downs, RN Registered Nurse Pain Management 06/17/17 Duke Do, RN Registered Nurse 09/09/17 Ngozi Petty MD Radiation Oncologist Radiation Oncology 02/05/19 Jose Roberto Marx MD Referring Physician Otolaryngology 02/05/19
--- OUTSIDE RECORDS SUMMARY | 2024-09-09 07:38 | XMS_ITS | Clinical Summary ---
Author Organization [facility] Address [address] [place] [address] Phone Care Team Providers Care Dye Box Operator Name Role Phone Alberto Stanton MD Primary Care Provider [phone] Medications Doxepin 4% Compound Cream Apply to [...] on file Legal Sex Male 6:13 PM LENS MATCHER Gender Identity Not on file Sexual Orientation Not on file Plan of Treatment Health Maintenance Due Date Last Done Comments ZOSTER VACCINE (1 of 2) 1964 PNEUMOCOCCAL VACCINE 50+ YEA RS (2 of 2 - PCV) [...] Part D Address: [place] Care Teams Dye Box Operator Relationship Specialty Start Date End Date Alberto Stanton MD [address] [place] [address] PCP - General Internal Medicine 12/30/14
--- OUTSIDE RECORDS SUMMARY | 2024-09-09 07:38 | XMS_ITS ---
Author Organization [facility] Address [address] [place] [address] Phone Care Team Providers Care Shelver Name Role Phone GRACIE ESQUEDA DO [phone] Problems Includes: Active, inactive, and resolved Problems No Active Problems Plan of Treatment Findings Encounter Date Ordered patient will call [facility] appointment as needed COVID SICK VISIT- NEW PATIENT with BRANDO DELGADO TUTOR-BC 06/01/2022 Last Documented On 2 11:57AM ; [facility] Ordered return to the clinic if condition worsens or new symptoms arise COVID SICK VISIT- NEW PATIENT with BRANDO DELGADO TUTOR-BC 06/01/2022 Last Documented On 2 11:57AM ; [facility] Instructions to patient Instructions for patient Last Documented On 2 11:53AM ; [facility] Assessments Includes: Assessments for all patient encounters Findings Encounter Date Acute upper respiratory infection COVID SICK VISIT- NEW PATIENT with BRANDO DELGADO TUTOR-BC 06/01/2022 Last Documented On 2 11:57AM ; [facility] Instructions Includes: Instructions for all patient encounters Instructions to patient Instructions for patient Last Documented On 2 11:53AM ; [facility] Medical Equipment - Implanted Devices Includes: Current and historical Devices No Medical Equipment Recorded Medications Includes: Current and historical Medications Current Medications (continue as prescribed) Methotrexate 2.5 MG Oral Tablet 05/31/2022 Provider: Diagnosis: Last Documented On 2 11:55AM By BRANDO NARAYANAN ; [facility] Finasteride 5 MG Oral Tablet 05/28/2022 Provider: RFANK LOPEZ Diagnosis: Last Documented On 11:55AM By BRANDO DELGADO TUTOR- ; [facility] Omeprazole 40 MG Oral Capsule Delayed Release 05/10/20 Provider: Diagnosis: Last Documented On 2 11:55AM By BRANDO SANCHEZ ; [facility] oxyCODONE HCl 5 MG Oral Tablet 05/07/2022 Provider: Diagnosis: Last Documented On 2 11:55AM By BRANDO SANCHEZ ; [facility] Fluticasone Propionate 50 MC G/ACT Nasal Suspension 04/12/2022 Provider: FAWN IBARRA PA-C Diagnosis: Last Documented On 2 11:55AM By BRANDO SANCHEZ ; [facility] Montelukast Sodium 10 MG Oral Tablet 04/12/2022 Prov ider: FAWN IBARRA PA-C Diagnosis: Last Documented On 2 11:55AM By BRANDO SANCHEZ ; [facility] rOPINIRole HCl 2 MG Oral Tablet 03/28/2022 Provider: FAWN IBARRA PA-C Diagnosis: Last Documented On 2 11:56AM By BRANDO SANCHEZ ; [facility] Medications Administered Includes: Administered Medications in patient's chart No Administered Medications Recorded Results Includes: Results from 09/10/2023 through 09/09/2024 No Results Recorded For Specified Dates History [...] Last Documented On 2 11:57AM ; [facility] Review of Systems Review of Systems not [...] Subscriber Relationship Effect marcelino Dates 1 - [facility]/MEDICARE ADV/AARP [id number] PASQUALE Rojas Clinical Notes Includes: Signed Clinical Notes starting from 06/22/2022 No Clinical Notes Recorded
--- OUTSIDE RECORDS SUMMARY | 2024-09-09 07:38 | XMS_ITS | Clinical Summary ---
Author Organization [facility] Address [address] [place] [address] Phone Care Team Providers Care Branner Machine Tender Name Role Phone GRACIE ESQUEDA DO [phone] Reason for Visit and Chief Complaint The Chief Complaint is: patient has had cough, MA, FREDERICK, sore throat, congestion, and runny nose since Saturday Problems Includes: Problems addressed during this encounter and other active Problems No Active Problems Plan of Treatment - Return to the clinic if condition worsens or new symptoms arise - Last Documented On 06/01/2022 11:57AM ; [facility] - Patient will call for appointment as needed - Last Documented On 06/01/2022 11:57AM ; [facility] Instructions to patient Instructions for patient Last Documented On 11:53AM ; [facility] Assessments Includes: Assessments from this encounter Findings - Acute upper respiratory infection - Last Documented On 06/01/2022 11:57AM ; [facility] Instructions Includes: Instructions from this encounter Instructions to patient Instructions for patient Last Documented On 11:53AM ; [facility] Medical Equipment - Implanted Devices Includes: Current Devices No Medical Equipment Recorded Medications Includes: Medications discussed during this encounter and other current Medications Current Medications (continue as prescribed) Methotrexate 2.5 MG Oral Tablet 05/31/2022 Provider: Diagnosis: Last Documented On 11:55AM By BRANDO SANCHEZ ; [facility] Finasteride 5 MG Oral Tablet 05/28/2022 Provider: FRANK LOPEZ Diagnosis: Last Documented On 11:55AM By BRANDO SANCHEZ ; [facility] Omeprazole 40 MG Oral Capsule Delayed Release 05/10/20 Provider: Diagnosis: Last Documented On 11:55AM By BRANDO SANCHEZ ; [facility] oxyCODONE HCl 5 MG Oral Tablet 05/07/2022 Provider: Diagnosis: Last Documented On 11:55AM By BRANDO SANCHEZ ; [facility] Fluticasone Propionate 50 MC G/ACT Nasal Suspension 04/12/2022 Provider: FAWN IBARRA PA-C Diagnosis: Last Documented On 11:55AM By BRANDO SANCHEZ ; [facility] Montelukast Sodium 10 MG Oral Tablet 04/12/2022 Prov ider: FAWN IBARRA PA-C Diagnosis: Last Documented On 11:55AM By BRANDO SANCHEZ ; [facility] rOPINIRole HCl 2 MG Oral Tablet 03/28/2022 Provider: FAWN IBARRA PA-C Diagnosis: Last Documented On 11:56AM By BRANDO SANCHEZ ; [facility] Medications Administered Includes: Administered Medications from this encounter No Administered Medications Recorded Vital Signs Includes: Vital Signs from this encounter Vital Name 06/01/2022 11:38A Pulse Rate-Sitting (bpm) 64 Temp-Oral (F) 98 Weight (lb) 221 Oxygen Saturation (%) 98 Last Documented: On 06/01/2022 11:39A M ; [facility] Results Includes: Results discussed during this encounter SARS COVID-19 FLU A & B [facility] Ordered by DAISHA ARIAS TYRE RETREADER on 05/05 Collected: Reported: 06/01/2022 11:48 Last Documented On 11:49AM ; [facility] Reviewed on 06/01/2022; All test results are final unless otherwise noted. COVID neg N (Normal) Last Documented On 11:49AM ; [facility] INFLUENZA A neg (Negative) N (Normal) Last Documented On 11:49AM ; [facility] INFLUENZA B neg (negative) N (Normal) Last Documented On 11:49AM ; [facility] INT. QC ACCEPTABLE? yes N (Normal) Last Documented On 11:49AM ; [facility] LOT # & EXP. DATE [id number] 04/11/23 N (Normal) Last Documented On 2 11:49AM ; [facility] History of Present Illness Includes: [...] patient Last Documented On 2 11:53AM ; [facility] Patient verbalizes understanding Last Documented On 2 11:53AM ; [facility] Increase fluids Last Documented On 2 11:53AM ; [facility] Clinical summary provided to patient Last Documented On 2 11:53AM ; [facility] Medical History Includes: Medical History addressed during this encounter No Medical History Recorded Family History Includes: Family History addressed during this encounter Description Last Updated Family history unchanged 06/01/2022 Last Documented On 2 11:57AM ; [facility] Review of Systems Includes: Review [...] COVID SICK VISIT- NEW PATIENT BRANDO DELGADO TYRE RETREADER-BC [facility] 06/01/20 22 11:32AM 11:52AM Upper Respiratory Infection Acute Insurance Includes: Active Insurance Policies Plan Name Member ID Group # Subscriber Relationship Effect marcelino Dates 1 - [facility]/MEDICARE ADV/AARP [id number] PASQUALE HUFFMAN Self Clinical Notes Includes: Clinical Notes from this encounter No Clinical Notes Recorded
--- OUTSIDE RECORDS SUMMARY | 2024-09-09 07:38 | XMS_ITS | Encounter Summary ---
Author Organization [facility] Healthcare Address [address] [place] [address] Care Team Providers Care Clock And Watch Hands Painter Name Role Phone Criss Blanco MD Unavailable Lashay Downs RN Unavailable Unavailab Duke Goodwin RN Unavailable UnavailNgozi Husain MD Unavailable [phone] Jose Roberto Marx MD Unavailable [phone] Grey Tomas MD Primary Care Provider [phone] Encounter Details Date Type Department Care Team (Late st Contact Info) Description 01/06/2019 Orders Only [facility] Health Information Management [address] [place] [address] Viraj Romeo, [place] [address] [place] [address] Social History Tobacco Use Types Packs/Day Years Used Date Smoking Tobacco: Former Cigarettes 2 30 Smokeless Tobacco: Never Comments:Smoking History Pac ks/day: 2 Packs Alcohol Use Standard Drinks/Week Comments Yes 2 (1 standard drink = 0.6 oz pur e alcohol) Sex and Gender Information Value Date Recorded Sex Assigned at Not on file Legal Sex Male 12:56 AM CASE MANAGER SPECIALIST Gender Identity Not on file Sexual Orientation Not on file documented as of this encounter Plan of Treatment Not on file documented as of this encounter Visit Diagnoses Not on filedocumented in this encounter Additional Health Concerns Infection Onset Date Last Indicated Resolved Time COVID: Suspected 10/23/2023 10/23/2023 10/24/2023 3:06 AM CDT documented as of this encounter Care Teams Clock And Watch Hands Painter Relationship Specialty Start Date End Date Grey Tomas MD PCP - General Family Practice 07/27/22 [place] [address] [facility] [address] [place] [address] Rheumatology 02/21/17 Lashay Downs, RN Registered Nurse Pain Management 06/17/17 Duke Do, RN Registered Nurse 09/09/17 Ngozi Petty MD Radiation Oncologist Radiation Oncology 02/05/19 Jose Roberto Marx MD Referring Physician Otolaryngology 02/05/19 documented as of this encounter
--- OUTSIDE RECORDS SUMMARY | 2024-09-09 07:38 | XMS_ITS | Encounter Summary ---
Author Organization [facility] Healthcare Address [address] [place] [address] Care Team Providers Care Transformer Builder Name Role Phone Criss Blanco MD Unavailable Lashay Downs RN Unavailable Unavailab Duke Goodwin RN Unavailable UnavailNgozi Husain MD Unavailable [phone] Jose Roberto Marx MD Unavailable [phone] Grey Tomas MD Primary Care Provider [phone] Encounter Details Date Type Department Care Team (Late st Contact Info) Description 08/15/2020 Telephone Pain Management Center at [facility] [address] [address], [address] [place] [id number] Kaykay Reyes MD [address] [facility] [place] [address] Social History Tobacco Use Types [...] on file Legal Sex Male 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
--- OUTSIDE RECORDS SUMMARY | 2024-09-09 07:38 | XMS_ITS | Clinical Summary ---
Author Organization [facility] Address [address] [place] [address] Phone Care Team Providers Care Knurling Machine Tender Name Role Phone Grey Tomas MD Primary Care Provider [phone] Allergies No known active allergies Medications methotrexate [...] 88 10/25/2023 4:45 PM CDT Temperature 36.4 C (97.5 F) 10/25/2023 1:10 PM CDT Respiratory Rate 16 10/25/2023 1:10 PM CDT [...] this topic Medical Devices Implanted Type Area Compliance Specialist Device Identifier Shelf Expiration Date Model / Serial / Lot Stent Ureteral 6fr 2.1fr 26cm 2 Pigtail Curve 2 Durometer Taper Tip Loprfl Graduated Polaris Ultra - [id number] Implanted:Qty : 1 on 02/06/2020 by Elizabeth Alba MD at [facility] IMPLANT Right: Ureter Fantex 07/16/2022 [id number] / [id number] / [id number] Insurance [facility]IC[facility] Advance Directives * Full Code (Latest Code Status on File) Date Activated Date Inactivated Comments 02/06/2020 2:19 AM 02/08/2020 4:15 PM CPR-Full Treat ment: FULL ARREST: Attempt Resuscitation/CPR wit intubation and mechanical ventilation. PRE-ARREST: Use entire range of life support measures to stabilize the patient. Care Teams Knurling Machine Tender Relationship Specialty Start Date End Date Grey Tomas MD [address] [place] [address] PCP - General Family Medicine 10/25/23
--- OUTSIDE RECORDS SUMMARY | 2024-09-09 07:38 | XMS_ITS | Clinical Summary ---
Author Organization [facility] Address [address] [place] [address] Care Team Providers Care Copper Tapper Name Role Phone Viraj Romeo Primary Care Provider [phone] Source Comments [facility],non-owned Affiliates and Associated Physician Practices is amultiple site organization consisting of ambulatory clinics and hospital sitesin [place], [place], [place] and [place]. This disclosure is being madepursuant to the Care Everywhere program and may not contain all information available regarding this patient. Last updated 18.[facility] Allergies Active Allergy Reactions Criticality Noted Date [...] 71 04/04/2022 3:06 PM CDT Temperature 36.6 C (97.8 F) 11/08/2021 10:12 AM CDT Respiratory Rate 18 04/04/2022 3:06 PM CDT [...] 1-dose 75+ series) 2018 COVID-19 VACCINE ( season) 2024 DEPRESSION SCREENING 06/03/2024 MEDICARE AWV CALENDAR YEAR 2024 INFLUENZA VACCINE (Season Ended) 2025 01/21/2020, 03/30/2019, 03/17/2018, Additional history exists HEPATITIS B VACCINE Aged Out No longe r eligible based on patient's age to complete this topic HIB VACCINE Aged Out No longer eligi ble based on patient's age to complete this topic HPV VACCINE Aged Out No longer eligi ble based on patient's age to complete this topic MENINGOCOCCAL (Group B) VACCINE SHARED DECISION-MAKING Aged Out No longer eligible based on patient's age to complete this topic MENINGOCOCCAL GROUPS A/C/Y/W VACCINE Aged Out No longer eligible based on patient's age to complete this topic Care Teams Copper Tapper Relationship Specialty Start Date End Date Viraj Romeo PA [address] [place] [address] PCP - General 12/28/20
--- OUTSIDE RECORDS SUMMARY | 2024-09-09 07:38 | XMS_ITS ---
Care Plan - [facility] Created on: September 09, 2024 PASQUALE HUFFMAN : 1945 Sex: Male Author Organization [facility] Address [address] [place] [address] Phone Care Team Providers Care Drill Press Operator For Metal Name Role Phone RGACIE ESQUEDA DO [phone]
--- OUTSIDE RECORDS SUMMARY | 2024-09-09 07:38 | XMS_ITS | Referral Summary ---
Author Organization [facility] Address [address] [place] [address] Care Team Providers Care Wire Drawing Machine Operator Name Role Phone Criss Blanco MD Unavailable Lashay Downs RN Unavailable Unavailab Duke Goodwin RN Unavailable UnavailNgozi Husain MD Unavailable [phone] Jose Roberto Marx MD Unavailable [phone] Grey Tomas MD Primary Care Provider [phone] Encounters Date Type Department Care Team Description 08/21/2024 10:00 AM CDT Office Visit [facility] ([facility]) - [facility] ENT [address] [facility] [address] [place] [address] [place] [phone] Anjel Cisneros MD Carcinoma in situ of larynx (Primary Dx); Lesion of vocal fold; Dysphonia 07/15/2024 Telephone [facility] ([facility] - [facility] [address] [facility] [address] [place] [address] [place] [phone] Adele Bolivar MS from Last 3 Months Allergies Active Allergy Reactions Criticality Noted Date Comments Amoxicillin-Pot Clavulanate Dizziness Low 02/02/20 Cat Dander Eye irritation Low 12/20/2020 Hydrocodone [...] 1 tablet (5 mg total) by mouth location analyst before breakfast Active omeprazole (PriLOSEC) 40 mg [...] (05/01/2022): Added automatically from request for surgery [id number] Lesion of vocal fold 04/25/2022 Overview (04/25/2022): Added automatically from request for surgery [id number] Adenomatous polyp of colon 04/04/2022 Pollard's esophagus [...] surveillance. Assessment & Plan (04/18/2021 11:46 AM SHEETROCK APPLICATOR): No evidence of disease today. However he [...] CDT): 75 yo M with a h/o [id number] TVC SCCA s/p KTP laser, presenting with new right TVC lesions concerning for malignancy. Plan to proceed to the OR for biopsy and laser treatment of the new right TVC lesions. Assessment & Plan (08/09/2020 3:55 PM SHEETROCK APPLICATOR): No evidence of disease on examination today. Continue routine surveillance. Assessment & Plan (05/20/2020 10:03 AM SHEETROCK APPLICATOR): No evidence of disease on examination today. Continue routine surveillance. 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 Assessment & Plan (06/23/2019 11:47 AM SHEETROCK APPLICATOR): His larynx looks clean after KTP laser treatment. 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 I would like to continue routine observation every 8 weeks. Assessment & Plan (05/12/2019 11:46 AM SHEETROCK APPLICATOR): The leukoplakia of the anterior right true [...] proceed. 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 11/21/2016 Assessment & Plan [...] of prostate 06/03/1998 Overview (04/30/2022): prostate Immunizations Immunization Administration Dates Next Due H1N1 All Forms 04/20/2010 Influenza, Quadrivalent, Hig h Dose, Preservative Free, Intrr 01/21/2020 Influenza, Quadrivalent, Rec ombinant, Egg Free, Preservative Free, Intramuscular 03/13/2021 Influenza, Quadrivalent, Spl it, Intramuscular 04/03/2016 Influenza, Split 03/19/2010,03/03/2009 Influenza, Trivalent, High D ose, Split, Preservative Free, Intramuscular 03/30/2019,03/17/2018,03/16/2018,02/09,04/04/2016 Influenza, Trivalent, IM (MDV) 5,04/08/2014,06/14/2013,06/13,02/05/2011 Influenza, Unspecified 03/04/2019 [place] (J&J) SARS-CoV-2 Vaccination 11/14/2021, 08/08/2020 Pneumococcal Conjugate [...] on file Legal Sex Male 12:56 AM SHEETROCK APPLICATOR Gender Identity Not on file Sexual Orientation [...] home safety. Medical Devices Implanted Type Area Import Specialist Device Identifier Shelf Expiration Date Model / Serial / Lot Ploonge Particle Embolization Pre Filled Foam Vial 2ml Microsphere Contour 150-250um Polyvinyl Alcohol [id number] - [id number] Implanted:Qty: 1 on 02/05/2023 at [facility] Hargreaves Eliza 08/21/2025 [id number] / / [id number] [employer] Coil Embolization [place]ado Microcoil [place] Od3-2mm .018 In Catheter [id number] - [id number] Implanted:Qty: 1 on 02/05/2023 at [facility] [employer] 08/07/2027 [id number] / / [id number] Angio-Seal Vip 6fr Closere Device [id number] - [id number] Implanted:Qty: 1 on 02/05/2023 at [facility] oboxo 08/01/2023 [id number] / / [id number] Procedures Procedure Name Priority Date/Time Associated Diagnosis Comments CT ABDOMEN PELVIS W CONTRAST ED 05/20/2018 1:12 AM SHEETROCK APPLICATOR from Last 3 Months or Most Recently Relevant to Health Maintenance Results * CT Abdomen Pelvis W Contrast (05/20/2018 1:12 AM SHEETROCK APPLICATOR) Anatomical Region Laterality Modality Body N/A Computed Tomogra phy 05/20/2018 7:08 AM SHEETROCK APPLICATOR Impressions 05/20/2018 7:24 AM SHEETROCK APPLICATOR 1. PERSISTENT 4 MM DISTAL RIGHT URETER STONE ALTHOUGH HYDROURETERONEPHROSIS ON THE RIGHT HAS C4 IMPROVED COMPARED WITH THE PRIOR EXAMINATION. THERE IS PERSISTENT LEFT LOWER POLE HYDRONEPHROSIS. NONOBSTRUCTING STONES WITHIN THE KIDNEYS PERSIST. 2. DEVELOPMENT OF MILD SPLENOMEGALY. 3. OTHER NONACUTE FINDINGS ABOVE. REPORT BY [facility] 05/20/2018 AT 2:17 AM. Electronically signed by: Antelmo Travis 05/20/2018 7:[address] ABDOMEN PELVIS W CONTRAST HISTORY: Abd [...] by: Luis Michaud M.D Kevin Blackwell MD IMViky CT PROCEDURES Final Res ult from Last 3 Months or Most Recently Relevant to Health Maintenance Insurance MEDICARE [employer] [facility] MEDICARE [facility]ANT[facility] Address: [address] [address] [place] [address] [facility] MEDICARE [facility]IC[facility] Address: [address] [address] [place] [address] Advance Directives For more information, please contact: [phone] Documents on File Type Date Recorded Patient Investment Banking Associate Expl anation ADVANCE DIRECTIVE 03/09/2019 6:43 AM * Full Code (Latest Code Status on File) Date Activated Date Inactivated Comments 02/05/2023 11:14 AM 02/06/2023 5:10 PM * Full Code Date Activated Date Inactivated Comments 07/01/2022 9:36 PM 07/03/2022 2:45 PM Care Teams Wire Drawing Machine Operator Relationship Specialty Start Date End Date Grey Tomas MD PCP - General Family Practice 07/27/22 [place] [address] [facility] [address] [place] [address] Rheumatology 02/21/17 Lashay Downs, RN Registered Nurse Pain Management 06/17/17 Duke Do, GAY Registered Nurse 09/09/17 Ngozi Petty MD Radiation Oncologist Radiation Oncology 02/05/19 Jose Roberto Marx MD Referring Physician Otolaryngology 02/05/19
--- OUTSIDE RECORDS SUMMARY | 2024-09-09 07:38 | XMS_ITS | Continuity of Care Document ---
Author Organization [facility] Address [address] [facility] [address] [place] [address] Phone Care Team Providers Care Document Design Specialist Name Role Phone Tuan GARCIA, Adalid Unavailable [...] [facility] , [address], [place], [address], tel:[phone] [facility] Follow up (chief complaint) Chronic coughChronic GERDOther seasonal allergic rhinitisLaryng eal cancer 3 Tuan Hamsa. [address], [place], [place], [address]. tel:[phone] OFFICE/OUTPA TIENT VISIT EST [facility] , [address], [place], [address], tel:[phone] [facility] allergy evaluation (chief complaint) Body mass index [BMI] 27.0-27.9, adultChronic coughChronic panethmoidal sinusitisOther seasonal allergic rhinitisOther allergic rhinitisChroni c GERD 3 Tuan Hamsa. [address], [place], [place], [address]. tel:[phone] OFFICE/OUTPA TIENT VISIT NEW [facility] , [address], [place], [address], [place] tel:[phone] [facility] allergy evaluation (chief complaint) CoughChronic pansinusitisAl lergy to pollen 7 Tuan Hamsa. [address] [address], [place], [place], [address]. tel:[phone] OFFICE/OUTPA TIENT VISIT EST [facility] , [address] [facility] [address], [place], [address], [place] tel:[phone] [facility] nasal congestion (chief complaint)o ccasional coughing (chief complaint) Chronic nasopharyngiti s 2 Tuan Hamsa. [address], [place], [place], [address]. tel:[phone] OFFICE/OUTPA TIENT VISIT EST [facility] , [address] [facility] [facility] , [place], [address], [place] tel:[phone] [facility] follow up (chief complaint) Chronic rhinitisChroni c rhinitis 2 Tuan Hamsa. [address], [place], [place], [address]. tel:[phone] OFFICE/OUTPA TIENT VISIT EST [facility] , [address] [facility] [address], [place], [address], [place] tel:[phone] [facility] sick (chief complaint) Cough 2 Tuan Hamsa. [address], [place], [place], [address]. tel:[phone] OFFICE OUTPT EST 25 MIN [facility] , [address] [facility] [address], [place], [address], [place] tel:[phone] [facility] follow up (chief complaint) Chronic nasopharyngiti sRespiratory abnormality, unspecified 2 Tuan Hamsa. [address], [place], [place], [address]. tel:[phone] Family History Family Member Type Diagnosis Age At Onset No Information Immunizations Vaccine Date Status Comments Influenza, quadrivalent, hig h dose, injectable, split virus, preservative free, 0.7 mL dose, Fluzone High-Dose Quad administered Source: Other Provid er Pneumococcal polysaccharide PPV23 adminis tered Source: Other Provider SARS-COV-2 (COVID-19) vaccin e, vector non-replicating, recombinant spike protein-Ad26, preservative free, 0.5 mL (Contix) administered Source: Other Provid er Payers Payer name Insurance type Covered constitution party ID Authorvikram treviño(s) [facility] Medicare Complete HMO OT [id number] Social History Type Description Quantity Date Captured [...] at this time. allergy evaluation 77-[facility] was last seen in 2016 for [...]
--- OUTSIDE RECORDS SUMMARY | 2024-09-09 07:39 | XMS_ITS | Continuity of Care Document ---
Author Organization [facility] Address [address] [facility] [address] [place] [address] Phone Care Team Providers Care Veterinary Technician Instructor Name Role Phone Albina Orellana OD Unavailable [...] Diagnoses Date Provider Providers Copied on Encounter [facility], [address], [place], [place], [address], [place] tel:[phone] SEC Alex[place] Professional Complete Exam (chief complaint) High risk medication useNexdtve age-related mclr degn, right eye, early dry stageDry eyes, bilateralCombi mazin forms of age-related cataract, bilateralChori oretinal scar of right eyeScar of cornea of right eyeBilateral ocular hypertension Oct-2 4 Reyna OD Albina. [address] [place] [address], [address], [place], [place], [address], [place]. tel:[phone] Alissa Fuentes MD.Referri Provider: Judit Walker, [address] [facility], [place], [address]. tel:[phone] [facility], [address], [place], [place], [address], [place] tel:[phone] SEC Alexei [place] Professional Complete Exam (chief complaint) High risk medication useScar of cornea of right eyeNexdtve age-related mclr degn, right eye, early dry stageDry eyes, bilateralCombi mazin forms of age-related cataract, bilateral Dec- 0 1 Reyna Montemayor. [address], [address], [place], [place], [address], [place]. tel:[phone] Specialist : Alissa Fuentes MD, [address] [facility] [address], [place], [address]. tel:[phone] er Provider: Alissa Fuentes MD, [address] [facility] [address] [place] [address], [address]. tel:[phone] erring Provider: Albina Orellana [place], [address], [place], [address] . tel:[phone] [facility], [facility] [address] [address], [place], [place], [address], [place] tel:[phone] SEC Alexei [place] Professional Complete Exam (chief complaint) Nexdtve age-related mclr degn, right eye, early dry stageCombined forms of age-related cataract, right eyeAge-related nuclear cataract, left eyeScar of cornea of right eyeHigh risk medication useSkin tagChorioretin al atrophy of right eye 0 Dallas Weiss. [address] [facility], [facility] [place], [address], [place]. tel:[phone] Other Provider: Alissa Fuentes MD, [address] [facility] [address], [place], [address]. tel:[phone] erring Provider: Abhishek Bonilla, [address], [place], [address] . tel:[phone] [facility], [address] [place], [place] [address] [address], [place], [place], [address], [place] tel:[phone] SEC Dallas Humberto Landin Information 0 Dallas Weiss. [address] [facility], [facility] [address], [place], [place], [address], [place]. tel:[phone] [facility], [address], [place], [place], [address], [place] tel:[phone] SEC [facility] Samuel Complete Exam (chief complaint) Combined forms of age-related cataract, right eyeCombined forms of age-related cataract, left eyeDry eyes, bilateralScar of cornea of right eyeChorioretin al scar of right eyeRPE mottling of macula 8 Aaron Spain. [address] [place], [address], [place]. tel:[phone] Referring Provider: Judit Walker, [address] [place], [address]. tel:[phone] Family History Family Member Type Diagnosis Age At Onset No Information Payers Payer name Insurance type Covered republican ID Authorvikram treviño(s) [facility] Mdcr Adv CI [id number] Social History Type Description Quantity Date Captured [...]
--- NOTE | 2024-09-09 07:40 | ECHO_ITS ---
Patient Info Name: Samuel Sanchez Age: 79 years : 1945 Gender: Male Ht: 72 in Wt: 220 lbs BSA: 2.27 m2 HR: 83 bpm BP: 136 / 99 mmHg Technical Quality: Fair Exam Date: 09/09/2024 8:12 AM Exam Location: Echo Lab Patient Status: Outpatient Admit Date: 09/09/2024 Staff Ordering Physician: Igor Damon DO Reading Coach: Lili Thompson RDCS Attending Provider: Igor Damon DO Referring Physician: Nelson ALBA; Exam Type: CA echo doppler color flow Study Info Indications I35.0 - Nonrheumatic aortic (valve) stenosis Complete two-dimensional, color flow and Doppler transthoracic echocardiogram is performed. Summary 1. Complete two-dimensional, color flow and Doppler transthoracic echocardiogram is performed. 2. Left ventricular chamber dimension is normal. 3. Left ventricular systolic function is normal, estimated at 60-65%. 4. There is mild concentric increased left ventricular wall thickness. 5. The left ventricular diastolic function is grade I diastolic dysfunction. 6. Left atrial chamber dimension is mildly enlarged. 7. The aortic valve is not well visualized. Cannot determine number of aortic valve leaflets. 8. There is moderate aortic valve sclerosis. 9. There is moderate to severe aortic valve stenosis based on a peak velocity of 303 cm/s, mean gradient of 23 mmHg, and aortic valve area of 0.9 cm2. 10. There is mild mitral valve regurgitation. 11. There is trace tricuspid valve regurgitation. 12. No pulmonary hypertension, estimated pulmonary arterial systolic pressure is 26 mmHg. Left Ventricle Tissue doppler E/e' was not measured. Left ventricular chamber dimension is normal. Left ventricular systolic function is normal, estimated at 60-65%. There is mild concentric increased left ventricular wall thickness. The left ventricular diastolic function is grade I diastolic dysfunction. Right Ventricle Right ventricular systolic function is normal and with normal TAPSE 1.8 cm. Right ventricular chamber dimension is normal. Left Atria Left atrial chamber dimension is mildly enlarged. Right Atria Right atrial chamber dimension is normal. Aortic Valve The aortic valve is not well visualized. Cannot determine number of aortic valve leaflets. There is moderate to severe aortic valve stenosis based on a peak velocity of 303 cm/s, mean gradient of 23 mmHg, and aortic valve area of 0.9 cm2. There is moderate aortic valve sclerosis. There is no aortic valve regurgitation. Pulmonic Valve There is no pulmonic regurgitation. Mitral Valve There is no mitral valve stenosis. There is mild mitral valve regurgitation. Tricuspid Valve There is trace tricuspid valve regurgitation. No pulmonary hypertension, estimated pulmonary arterial systolic pressure is 26 mmHg. Pericardium/Pleural There is no pericardial effusion. Inferior Vena Cava Normal inferior vena cava with >50% collapse upon inspiration consistent with normal right atrial pressure, 5 mmHg. Aorta The aortic root size at the sinus of Valsalva is normal. Left Ventricular Outflow Tract Name Value Normal LVOT 2D LVOT Diameter 2.0 cm LVOT Doppler LVOT Peak Gradient 1 mmHg LVOT Mean Gradient 1 mmHg LVOT VTI 18 cm LVOT VTI/AV VTI Ratio 0.3 LVOT Stroke Volume 56 ml LVOT CO 9.4 l/min LVOT CI 4.1 l/min/m2 Tricuspid Valve Name Value Normal TV Regurgitation Doppler TR Peak Velocity 227 cm/s TR Peak Gradient 21 mmHg Estimated PAP/RSVP RA Pressure 5 mmHg <=5 PA Systolic Pressure 26 mmHg <36 RV Systolic Pressure 26 mmHg <36 Aorta Name Value Normal Ascending Aorta Ao Root Diameter (MM) 3.4 cm Ao Root Diam Index (MM) 1.5 cm/m2 Aortic Valve Name Value Normal AV Doppler AV Peak Velocity 303 cm/s AV Peak Gradient 36 mmHg AV Mean Gradient 23 mmHg AV VTI 63 cm AV Area (Cont Eq VTI) 0.9 cm2 >=3.0 AV Area (Cont Eq Arias) 0.6 cm2 AV Regurgitation 2D LVOT Area 3.1 cm2 Ventricles Name Value Normal LV Dimensions 2D/MM IVS Diastolic Thickness (2D) 1.3 cm 0.6-1.0 LVID Diastole (2D) 4.2 cm 4.2-5.8 LVIW Diastolic Thickness (2D) 1.3 cm 0.6-1.0 LVID Systole (2D) 3.1 cm 2.5-4.0 LVOT Diameter 2.0 cm LV Mass (2D Cubed) 190.68 g 88.00-224.00 LV Mass Index (2D Cubed) 84 g/m2 49-115 Relative Wall Thickness (2D) 0.61 LV Fractional Shortening/Ejection Fraction 2D/MM LV Fractional Shortening (2D) 25 % 25-43 LV EF (2D Teicholz) 50 % 52-72 LV Diastolic Volume (4C MOD) 104 ml LV EF (4C MOD) 60 % LV Diastolic Volume (2C MOD) 92 ml LV EF (2C MOD) 59 % LV Diastolic Volume (BP MOD) 98 ml 62-150 LV Diastolic Volume Index (BP MOD) 43 ml/m2 34-74 LV Systolic Volume (BP MOD) 41 ml 21-61 LV Systolic Volume Index (BP MOD) 18 ml/m2 11-31 LV EF (BP MOD) 59 % 52-72 LV Diastolic Length (4C) 8.6 cm LV Systolic Length (4C) 7.4 cm LV Stroke Volume (4C MOD) 62 ml RV Dimensions 2D/MM RVID Diastole (2D) 3.6 cm 2.5-3.5 Atria Name Value Normal LA Dimensions LA Volume (4C A-L) 56 ml LA Volume (BP A-L) 51 ml RA Dimensions RA Area (4C) 12.1 cm2 <=18.0 Report Signatures
== END 2024-09-09 07:36 | disposition home or self-care (01) ==
PROVIDERS: PCP Family Medicine; Visit Provider Internal Medicine Cardiovascular Disease
DX: R93.1 Abnormal findings on diagnostic imaging of heart and coronary circulation (principal); I35.0 Nonrheumatic aortic (valve) stenosis
CPT/HCPCS: 93306

== ENCOUNTER 2025-01-05 09:38 | Outpatient (CLI) | payer MEDICARE, SELFPAY ==
--- NOTE | ~2025-01-05 | XR_ITS ---
Supine and upright views of the abdomen Clinical history: Hydronephrosis Findings: Bowel gas pattern is nonspecific. No evidence for obstruction or free air. Possible small r ight renal stone. Osseous structures are intact. Impression: Possible small right renal stone. Reviewed, dictated and finalized at location . Impression: Possible small right renal stone.
--- OUTSIDE RECORDS SUMMARY | 2025-01-05 10:04 | XMS_ITS | Clinical Summary ---
Author Organization [facility] Address [address] [place] [address] Care Team Providers Care [place] Tribunal Member Name Role Phone Viraj Romeo Primary Care Provider Source Comments [facility],non-owned Affiliates and Associated Physician Practices is amultiple site organization consisting of ambulatory clinics and hospital sitesin [place], [place], [place] and [place]. This disclosure is being madepursuant to the Care Everywhere program and may not contain all information available regarding this patient. Last updated 18.[facility] Allergies Active Allergy Reactions Criticality Noted Date Comments Hydrocodone Itching Low 02/18/2012 Perfume [Other] Shortness of Breath,Cough High 05/04 Hydrocodone-Acetaminophen Itching Low 05/17/2011 Medications * Be aware that medications may not be up to date on this document. Alwaysverify current medications with the patient. multivitamin daily (THERAGRAN) tablet Take 1 tablet by mouth once daily 300 MG Active famotidine (PEPCID) 40 MG tablet Take 40 mg by mouth once daily 0 Active methotrexate 2.5 MG tablet Take 6 tablets by mouth every 7 days 0 Active tamsulosin (FLOMAX) 0.4 MG capsule Take 0.4 mg by mouth once daily 8 Active Multiple Vitamins-Minera ls (PRESERVISION AREDS 2) capsule Take 1 capsule by mouth 2 times daily Active lansoprazole (PREVACID) 30 MG capsule Take 1 (one) capsule by mouth 2 times daily, before breakfast and supper TO IMPROVE HEARTBURN SYMPTOMS 60 capsule 2 2 Active albuterol HFA (Proventil; Ventolin; Proair) 108 (90 Base) MCG/ACT inhaler INHALE 1 TO 2 PUFFS EVERY 4 TO 6 HOURS NEEDED FOR DIFFICULTY BREATHING 2 Active rOPINIRole (Requip) 2 MG tablet TAKE 1 TABLET BY MOUTH EVERY DAY AT BEDTIME 2 Active omeprazole (PriLOSEC) 40 MG capsule TAKE 1 CAPSULE BY MOUTH DAILY BEFORE BREAKFAST 100 capsule 3 Active Active Problems Problem Noted Date Diagnosed [...] Assigned at Male 08/22/2021 3:52 PM CDT 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 Gender Identity Male 08/22/2021 3:52 PM CDT [...] 3:06 PM CDT Height 185.4 cm (6' 1) 11/08/2021 8:58 AM CDT Body Mass Index 29.03 11/08/2021 8:58 AM CDT Plan of Treatment Health Maintenance Due Date Last Done Comments DTAP/TDAP/TD VACCINES (1 - Tdap) 1964 PNEUMOCOCCAL VACCINE 50+ (1 of 1 - PCV) 1993 ZOSTER VACCINE (1 of 2) 1993 Respiratory Syncytial Virus (RSV) Vaccine Pt: or over 60 yrs (1 - 1-dose 75+ series) 2018 COVID-19 VACCINE (1 - season) 2024 DEPRESSION SCREENING 06/03/2024 MEDICARE AWV CALENDAR YEAR 2024 INFLUENZA VACCINE (#1) 2025 0, 03/30/2019, 03/17/2018, Additional history exists HEPATITIS B [...] on patient's age to complete this topic Insurance [employer] MANAGED MEDICARE ADV MEDICARE SELF PAY NO INSURANCE Member Subscriber Plan / Payer (Ef fective for All Dates) Name:Samuel Huffman Member ID:Not on file Relation to Subscriber:Not on file Name:SAMUEL HUFFMAN Subscriber ID:Not on file (Home) Address: [address] [place] [address] Payer ID:Not on file Group ID:Not on file Type:Self Pay Address: [place], [place] [facility] MANAGED MEDICARE ADV [facility] MANAGED MEDICARE ADV Care Teams [place] Tribunal Member Relationship Specialty Start Date End Date Viraj Romeo PA [address] [place] [address] PCP - General 12/28/20
--- OUTSIDE RECORDS SUMMARY | 2025-01-05 10:04 | XMS_ITS | Clinical Summary ---
Author Organization [facility] Address [address] [place] [address] Phone Care Team Providers Care Portable Power Tool Repairer Name Role Phone Grey Tomas MD Primary Care Provider [phone] Allergies No known active allergies Medications methotrexate [...] (Adult) (1 - 1-dose 75+ series) 2018 SARS-COV-2 Immunization ( season) 2024 05/14/2023, 08/29/2022, 11/14/2021, Additional history exists Influenza Immunization (#1) 02/01/202505/03, 08/29/2022, 04/26/2022, Additional history exists DTaP/Tdap/Td Immunization Discontinued 06/30/2019 TdaP Immunization Completed 06/30/2019 Pneumococcal Immunization (50+ years) Completed 08/29/2022, 04/19/2022, 03/17/2018, Additional history exists Pneumococcal Immunization Combined Discontinued 08/29/2022, 04/19/2022, 03/17/2018, Additional history exists Hepatitis B Immunization Aged Out No longer eligible based on patient's age to complete this topic Human Papillomavirus (HPV) Immunization Aged Out No longer eligible based on patient's age to complete this topic Meningococcal Immunization (ACWY) Aged Out No longer eligible based on patient's age to complete this topic Rotavirus Immunization Aged Out No lo nger eligible based on patient's age to complete this topic Medical Devices Implanted Type Area Poultry Offal Worker Device Identifier Shelf Expiration Date Model / Serial / Lot Stent Ureteral 6fr 2.1fr 26cm 2 Pigtail Curve 2 Durometer Taper Tip Loprfl Graduated [employer] Ultra - [id number] Implanted:Qty : 1 on 02/06/2020 by Elizabeth Alba MD at [facility] IMPLANT Right: Ureter [employer] 07/16/2022 [id number] / [id number] / [id number] Insurance MEDIC[facility] C [employer] Advance Directives * Full Code (Latest Code Status on File) Date Activated Date Inactivated Comments 02/06/2020 2:19 AM 02/08/2020 4:15 PM CPR-Full Treat ment: FULL ARREST: Attempt Resuscitation/CPR wit intubation and mechanical ventilation. PRE-ARREST: Use entire range of life support measures to stabilize the patient. Care Teams Portable Power Tool Repairer Relationship Specialty Start Date End Date Grey Tomas MD [address] [place] [address] PCP - General Family Medicine 10/25/23
--- OUTSIDE RECORDS SUMMARY | 2025-01-05 10:04 | XMS_ITS | Clinical Summary ---
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 Gender Identity Not on file Sexual Orientation Not on file Plan of Treatment Health Maintenance Due Date Last Done Comments ZOSTER VACCINE (1 of 2) 1962 PNEUMOCOCCAL VACCINE 50+ YEA RS (2 of 2 - PCV) 02/06/2012 02/05/2011 RSV VACCINE (60+ or ) (1 - 1-dose 75+ series) 2018 INFLUENZA VACCINE (#1) 2025 6, 06/07/2014, 06/14/2013, Additional history exists DTAP/TDAP/TD VACCINES (2 - T d or Tdap) 06/30/2029 06/30/2019 Insurance MEDICARE PART A AND B BCBS SUPP RX [employer] RX Member Subscriber Plan / Payer (Ef fective 2020-Present) Name:Samuel Sanchez Relation to Subscriber:Self Name:Samuel Sanchez Payer ID:Not on file Group ID:[id number] Type:RX Medicare Part D Address: [place] Care Teams Extraction Operator Relationship Specialty Start Date End Date Alberto Stanton MD [address] [place] [address] PCP - General Internal Medicine 12/30/14
--- OUTSIDE RECORDS SUMMARY | 2025-01-05 10:04 | XMS_ITS | Encounter Summary ---
Author Organization [facility] Address [address] [place] [address] Care Team Providers Care Operations Research Engineer Name Role Phone Alberto Stanton MD Primary Care Provider [phone] Reason for Visit * Reason Comments Medication Refill Encounter Details Date Type Department Care Team (Late st Contact Info) Description 09/10/2019 Refill [facility] [address] [place] [id number] Nathanael Fairchild MD [address] [place] [address] Social History Tobacco Use Types Packs/Day Years Used Date Smoking Tobacco: Never Assessed Sex and Gender Information Value Date Recorded Sex Assigned at Not on file 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
--- OUTSIDE RECORDS SUMMARY | 2025-01-05 10:04 | XMS_ITS | Patient Health Record ---
Author Organization [facility] Address [address] [place] [phone] Reason For Referral No Information Medications Medication SIG (Take, Route, Frequency, Duration) Notes Start Date End Date Status Folic Acid Active Ranitidine Active Aspirin Active Plan Of Treatment Pending Test Test Name Order Date Urinalysis, Routine 10/04/2015 Vision Screening 10/04/2015 Hearing Screening 10/04/2015 PFT 10/04/2015 DOT DRUG SCREEN 10/04/2015 RAPID READ DRUG SCREEN 10/04/2015 Insurance Providers Payer Name Payer Address Payer Phone Subscriber Number Group Number Insured Name Patient Relationship to Insured Coverage Start Date Coverage End Date Oliver Mart[place]P/[place] [address] Yoandy Sanchez Self - patient is the insured Medical (General) History Medical History History ICD Code kidney stones arthritis migraines-no headache x 6 months Surgical History Surgery Date(Month/Year) shoulders 1979
== END 2025-01-05 09:39 | disposition home or self-care (01) ==
PROVIDERS: PCP Family Medicine; Visit Provider Urology
DX: N13.30 Unspecified hydronephrosis (principal)
CPT/HCPCS: 74018

== ENCOUNTER 2025-04-07 14:53 | Outpatient (CLI) | payer MEDICARE, SELFPAY ==
--- NOTE | ~2025-04-07 | XR_ITS ---
EXAMINATION: XR chest 2V, 04/07/2025 15:03 VOCATIONAL SERVICES SPECIALIST HISTORY: R09.89 - Other specified symptoms and signs involving the... COMPARISON: No comparisons available. Technique: 2 views obtained. Findings: The lungs are clear, no effusion. No pneumothorax. Heart is normal size. Mediastinal and hilar contours are within normal limits. Bony thorax no acute abnormality. Impression: No acute cardiopulmonary abnormality. Reviewed, dictated and finalized at location P. TIONAL SERVICES SPECIALIST Impression: No acute cardiopulmonary abnormality.
--- OUTSIDE RECORDS SUMMARY | 2025-04-08 14:38 | XMS_ITS | Clinical Summary ---
Author Organization [facility] Address [address] [place] [address] Phone Care Team Providers Care Electronic Video Games Servicer Name Role Phone Grey Tomas MD Primary Care Provider Allergies No known active allergies Medications methotrexate [...] Comments Hepatitis C Virus (HCV) Screening 1945 Medicare Initial AWV [id number] 07/04/2013 Zoster Immunization (1 of 2) 05/30/2016 04/04/2016 Respiratory Syncytial Virus (RSV) Immunization (Adult) (1 - 1-dose 75+ series) 2018 Influenza Immunization (#1) 02/01/202505/03, 08/29/2022, 04/26/2022, Additional history exists SARS-COV-2 Immunization ( season) 2025 05/14/2023, 08/29/2022, 11/14/2021, Additional history exists DTaP/Tdap/Td [...] this topic Medical Devices Implanted Type Area Apparel Sales Associate Device Identifier Shelf Expiration Date Model / Serial / Lot Stent Ureteral 6fr 2.1fr 26cm 2 Pigtail Curve 2 Durometer Taper Tip Loprfl Graduated [employer] Ultra - [id number] Implanted:Qty : 1 on 02/06/2020 by Elizabeth Alba MD at [facility] IMPLANT Right: Ureter [employer] 07/16/2022 [id number] 0 / [id number] / [id number] Insurance Advance Directives * Full Code (Latest Code Status on File) Date Activated Date Inactivated Comments 02/06/2020 2:19 AM 02/08/2020 4:15 PM CPR-Full Treat ment: FULL ARREST: Attempt Resuscitation/CPR wit intubation and mechanical ventilation. PRE-ARREST: Use entire range of life support measures to stabilize the patient. Care Teams Electronic Video Games Servicer Relationship Specialty Start Date End Date Grey Tomas MD PCP - General Family Medicine 10/25/23
--- OUTSIDE RECORDS SUMMARY | 2025-04-08 14:38 | XMS_ITS | Clinical Summary ---
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
--- OUTSIDE RECORDS SUMMARY | 2025-04-08 14:38 | XMS_ITS | Data Portability ---
Author Organization [facility] MIGUELANGELRed Address [address] [place] [address] Care Team Providers Care Salesperson Women'S Dresses Name Role Phone FAWN ROMEO Primary Care Provider Assessment No assessment recorded. Plan of Treatment Reminders Order Date Submit Date Provider Last Modified By Organization Details Last Modified Time Details Appointments None record ed. [facility] [address] [place] [address], [facility] [address], [place], [address], 09:14:39 CMP, serum or plasma 2021 022 [facility], [address] [place] [address], [address], [place], [address], 09:14:38 lipid panel, serum 2021 022 [facility], [address] [place] [address], [address], [place], [address], 09:14:40 Referral dermat rochelle forrest referr al 2020 021 ssander Not available 16:04:45 counse ling referr al 2020 021 ssander Not available 09:44:46 Procedures None record ed. Surgeries None record ed. Imaging MRI, lumbar spine, w/o contra st 2021 022 [facility], [address], [place], [address], 11:57:02 Medication Orders isac ukast 10 mg tablet 2021 [id number], [address] [place] [address], [id number], 15:46:39 flutic asone propio carlee 50 mcg/ac tuatio n nasal spray, suspen tee 2021 [id number], [address] [place] [address], [id number], 15:46:38 escita lopram 10 mg tablet [id number], [address] [place] [address], [id number], 15:29:38 Patient TargetsNo targets recorded. Patient Instructions Encounter Date Encounter Id Patient Instructions Last Modified By Organization Details Last Modified Time 02/07/2022 [id number] A healthy lifestyle: care instructions jney Not available 02/07/2022 11:55:30 A healthy lifestyle: care instructions jnanney Not available 02/07/2022 11:55:10 04/12/2022 [id number] seasonal allergies: care instructions jnanney Not available 04/12/2022 15:46:31 Reason for Referral Counseling Referral for Personal Lines Appraiser zulay depression Referring Physician: Fawn Rome[facility], Encounter Date: 10/17/2020 Physical Therapist Assistant Referral for M elanocytic nevus of skin Referring Physician: Fawn Romeo [facility], Encounter Date: 11/04/2020 Results Created Date Observation Date Name Description Value Unit Range Abnormal Flag Note LastModifiedBy Organization Detail LastModifiedTime 10/07/1910/07/2021 COMP. METAB OLIC PANEL (14) glucose 88 mg/dL 65-99 Not Available [facility] ([facility]) [address] [facility] [place], [address], 10/07/2021 09:14:38 10/07/19 22 10/07/2021 COMP. METAB OLIC PANEL (14) BUN 15 mg/dL 8-27 Not Available [facility] ([facility]) [address] [facility] [place], [address], 10/07/2021 09:14:38 10/07/19 22 10/07/2021 COMP. METAB OLIC PANEL (14) creatinine 1.04 mg/dL 0.76-1 .27 Not Available [facility] ([facility]) [address] [facility], [place], [address], 10/07/2021 09:14:38 10/07/19 22 10/07/2021 COMP. METAB OLIC PANEL (14) eGFR 73 mL/mi n/1.7 3 >59 Not Available [facility] ([facility]) [address] [facility] [place], [address], 10/07/2021 09:14:38 10/07/19 22 10/07/2021 COMP. METAB OLIC PANEL (14) BUN/creatini ne ratio 14 10-24 Not Available [facility] ([facility]) [address] [place], [address], 10/07/2021 09:14:38 10/07/19 22 10/07/2021 COMP. METAB OLIC PANEL (14) sodium 143 mmol/ L 134-14 4 Not Available [facility] ([facility]) [address] [place], [address], 10/07/2021 09:14:38 10/07/19 22 10/07/2021 COMP. METAB OLIC PANEL (14) potassium 4.1 mmol/ L 3.5-5. 2 Not Available [facility] ([facility]) [address] [place], [address], 10/07/2021 09:14:38 10/07/19 22 10/07/2021 COMP. METAB OLIC PANEL (14) chloride 107 mmol/ L 96-106 above high normal Not Available [facility] ([facility]) [address] [place], [address], 10/07/2021 09:14:38 10/07/19 22 10/07/2021 COMP. METAB OLIC PANEL (14) carbon dioxide, total 22 mmol/ L 20-29 Not Available [facility] ([facility]) [address] [place], [address], 10/07/2021 09:14:38 10/07/19 22 10/07/2021 COMP. METAB OLIC PANEL (14) calcium 9.0 mg/dL 8.6-10 .2 Not Available [facility] ([facility]) [address] [place], [address], 10/07/2021 09:14:38 10/07/19 22 10/07/2021 COMP. METAB OLIC PANEL (14) protein, total 6.5 g/dL 6.0-8. 5 Not Available [facility] ([facility]) [address] [place], [address], 10/07/2021 09:14:38 10/07/19 22 10/07/2021 COMP. METAB OLIC PANEL (14) albumin 4.4 g/dL 3.7-4. 7 Not Available [facility] ([facility]) [address] [place], [address], 10/07/2021 09:14:38 10/07/19 22 10/07/2021 COMP. METAB OLIC PANEL (14) globulin, total 2.1 g/dL 1.5-4. 5 Not Available [facility] ([facility]) [address] [place], [address], 10/07/2021 09:14:38 10/07/19 22 10/07/2021 COMP. METAB OLIC PANEL (14) A/G ratio 2.1 1.2-2. 2 Not Available [facility] ([facility]) [address] [facility], [place], [address], 10/07/2021 09:14:38 10/07/19 22 10/07/2021 COMP. METAB OLIC PANEL (14) bilirubin, total 0.4 mg/dL 0.0-1. 2 Not Available [facility] ([facility]) [address] [facility], [place], [address], 10/07/2021 09:14:38 10/07/19 22 10/07/2021 COMP. METAB OLIC PANEL (14) alkaline phosphatase 69 IU/L 44-121 Not Available [facility] ([facility]) [address] [facility], [place], [address], 10/07/2021 09:14:38 10/07/19 22 10/07/2021 COMP. METAB OLIC PANEL (14) AST (SGOT) 18 IU/L 0-40 Not Available [facility] ([facility]) [address] [facility], [place], [address], 10/07/2021 09:14:38 10/07/19 22 10/07/2021 COMP. METAB OLIC PANEL (14) ALT (SGPT) 15 IU/L 0-44 Not Available [facility] ([facility]) [address] [facility], [place], [address], 10/07/2021 09:14:38 10/07/19 22 10/07/2021 CBC, PLATE LET, NO DIFFE RENTI AL WBC 5.6 x10e3 /uL 3.4-10 .8 Not Available [facility] ([facility]) [address] [facility], [place], [address], 10/07/2021 09:14:39 05/06/20 22 10/07/2021 CBC, PLATE LET, NO DIFFE RENTI AL RBC 4.81 x10e6 /uL 4.14-5 .80 Not Available [facility] ([facility]) [address] [facility], [place], [address], 10/07/2021 09:14:39 10/07/19 22 10/07/2021 CBC, PLATE LET, NO DIFFE RENTI AL hemoglobin 15.0 g/dL 13.0-1 7.7 Not Available [facility] ([facility]) [address] [facility], [place], [address], 10/07/2021 09:14:39 10/07/19 22 10/07/2021 CBC, PLATE LET, NO DIFFE RENTI AL hematocrit 44.1 % 37.5-5 1.0 Not Available [facility] ([facility]) [address] [facility], [place], [address], 10/07/2021 09:14:39 10/07/19 22 10/07/2021 CBC, PLATE LET, NO DIFFE RENTI AL MCV 92 fL 79-97 Not Available [facility] ([facility]) [address] [place], [address], 10/07/2021 09:14:39 10/07/19 22 10/07/2021 CBC, PLATE LET, NO DIFFE RENTI AL MCH 31.2 pg 26.6-3 3.0 Not Available [facility] ([facility]) [address] [place], [address], 10/07/2021 09:14:39 10/07/19 22 10/07/2021 CBC, PLATE LET, NO DIFFE RENTI AL MCHC 34.0 g/dL 31.5-3 5.7 Not Available [facility] ([facility]) [address] [place], [address], 10/07/2021 09:14:39 10/07/19 22 10/07/2021 CBC, PLATE LET, NO DIFFE RENTI AL RDW 13.5 % 11.6-1 5.4 Not Available [facility] ([facility]) [address] [place], [address], 10/07/2021 09:14:39 10/07/19 22 10/07/2021 CBC, PLATE LET, NO DIFFE RENTI AL platelets 150 x10e3 /uL 150-45 0 Not Available [facility] ([facility]) [address] [facility], [place], [address], 10/07/2021 09:14:39 10/07/19 22 10/07/2021 CBC, PLATE LET, NO DIFFE RENTI AL NRBC MAORI LIAISON ADVISER Not Available [facility] ([facility]) [address] [facility], [place], [address], 10/07/2021 09:14:39 10/07/19 22 10/07/2021 LIPID PANEL cholesterol, total 157 mg/dL 100-19 9 Not Available [facility] ([facility]) [address] [place], [address], 10/07/2021 09:14:39 10/07/19 22 10/07/2021 LIPID PANEL triglyceride s 231 mg/dL 0-149 above high normal Not Available [facility] ([facility]) [address] [place], [address], 10/07/2021 09:14:39 10/07/19 22 10/07/2021 LIPID PANEL HDL cholesterol 34 mg/dL >39 below low normal Not Available [facility] ([facility]) [address] [place], [address], 10/07/2021 09:14:39 10/07/19 22 10/07/2021 LIPID PANEL VLDL cholesterol ann 39 mg/dL 5-40 Not Available [facility] ([facility]) [address] [place], [address], 10/07/2021 09:14:39 10/07/19 22 10/07/2021 LIPID PANEL LDL chol calc ([facility]) 84 mg/dL 0-99 Not Available [facility] ([facility]) [address] [facility], [place], [address], 10/07/2021 09:14:39 10/07/19 22 10/07/2021 LIPID PANEL comment: MAORI LIAISON ADVISER Not Available [facility] ([facility]) [address] [facility], [place], [address], 10/07/2021 09:14:39 10/07/19 22 10/07/2021 CARDI OVASC ULAR REPOR T interpretati on Note Suppl embenja al repor t is avail able. Not Available [facility] ([facility]) [address] [facility], [place], [address], 10/07/2021 09:14:40 10/07/19 22 10/07/2021 CARDI OVASC ULAR REPOR T pdf . Not Available [facility] ([facility]) [address] [facility], [place], [address], 10/07/2021 09:14:40 10/07/19 22 10/06/2021 HbA1c (hemo globi n A1c), blood HbA1c 5.1 Not Available In-Office Order Internal Use Only DO Not Attach Compendium DO Not Attach Compendium, Do Not Delete/merge, [id number] 10/06/2021 12:45:12 12/02/19 21 12/01/2020 XR, abdom en + pelvi s No observ ation record ed. [facility] [address], [place], [address], 12/02/2020 09:32:58 12/07/19 21 12/06/2020 US, retro perit oneum , compl ete No observ ation [facility] ed[facility] [address], [place], [address], 12/06/2020 16:45:21 06/26/19 22 06/26/2021 XR, chest No observ ation record ed. [facility] [address] [facility], [place], [address], 2021 09:41:58 09/05/19 22 09/04/2021 XR, abdom en No observ ation record ed. [facility] [address], [place], [address], 09/04/2021 16:35:26 04/11/20 22 04/11/2022 CT, abdom en + pelvi s, w/wo contr ast No observ ation record ed. [facility] [address] [facility], [place], [address], 04/11/2022 11:43:18 07/01/19 23 07/01/2022 CT, head, w/o contr ast No observ ation record ed. [facility] [address] [facility], [place], [address], 07/02/2022 09:52:46 07/01/19 23 07/01/2022 CT, cervi ann spine , w/o contr ast No observ ation record ed. [facility] [address] [facility], [place], [address], 07/02/2022 09:53:30 07/01/19 23 07/01/2022 XR, shoul jesus No observ ation record ed. [facility] [address] [facility], [place], [address], 07/02/2022 09:53:46 Result Notes None recorded. Problems Name Problem SNOMED Code Status Onset Date Resolution Date Notes Provider Name and Address Organization Details Recorded Time Headache 05467111 Active 2009 Not Available [facility] 17:53:35 Rheumatoid arthritis of multiple joints 699450181 Active 2011 Not Available [facility] 17:53:35 High risk drug monitoring status 396884470 Active 2016 Not Available [facility] 17:53:34 Chronic low back pain 895217336 Active 2016 Not Available [facility] 17:53:35 Problem Notes Documentation Provider Name and Address Organization Details Recorded Time Gastroenterology Note : This document (1 of 1) was received from [email or web address] on 09/27/2022 through Direct Message along with the following message body content: Patient Name: PASQUALE HUFFMAN. Patient : 1945. Patient . [place] - [place] 10/01/2022 10:00:50 Procedures Surgical History Date Name Laterality Status Provider Name and Address Organization Details Recorded Time 0 colonoscopy completed Yadira Pickett [place] - [place] 05/18/2020 09:59:48 Shoulder joint surgery completed Jazmyne Moncada [place] - [place] 05/02/2017 10:06:28 Imaging Results None recorded. Procedure Notes None recorded. Medical Equipment None Reported. Allergies Allergen ID Allergen Name Allergen Category Reaction Reaction Severity Criticality Documentation Date Start Date Code Code System Note Provider Name and Address Organization Details Recorded Time 131678 cat dander environme nt eye redness Not available Not available 05/02/2017 TERRY [place] - [place] 7 10:04:23 550419 mold extract environme nt Not available Not available Not available 05/02/2017 87867 8 RxNorm TERRY [place] - S[facility] 7 10:04:47 922454 hydrocodo ne Not available itching Not available Not available 02/11/2020 5489 RxNorm TERRY [place] - [place] 0 14:50:40 No known drug allergies Medications Name Sig Start Date Stop Date Status Note LastModified by Organization Details LastModified Time gabapentin 600 mg tablet Take 1 tablet twice a day by oral route. 01/08 completed Not Available Not Available Not Available ropinirole 1 mg tablet TAKE 1 TABLET BY MOUTH AT BEDTIME active Not Available Not Available No t Available ketoconazo le 2 % shampoo USE THREE TIMES A WEEK DIRECTED 10/06 completed Not Available Not Available Not Available tizanidine 2 mg tablet 2 mg by oral route. 07/15 completed Not Available Not Available Not Available azithromyc in 250 mg tablet 05/02 completed Not Available Not Available Not Available tizanidine 4 mg tablet TAKE 1 TABLET BY MOUTH EVERY 8 HOURS NEEDED FOR MUSCLE SPASM 04/12 completed Not Available Not Available Not Available fluconazol e 150 mg tablet 05/02 completed Not Available Not Available Not Available ranitidine 300 mg tablet Take 1 tablet every day by oral route for 90 days. 05/18 completed Not Available Not Available Not Available sumatripta n 100 mg tablet 100 mg by oral route. 05/02 completed Not Available Not Available Not Available hydrocodon e 5 mg-acetami nophen 325 mg tablet TK 1 OR 2 TS PO Q 4 H PRN P 05/18 completed Not Available Not Available Not Available fluconazol e 200 mg tablet TAKE 1 TABLET BY MOUTH EVERY 72 HOURS (3 DAYS) 05/18 completed Not Available Not Available Not Available meloxicam 15 mg tablet 02/07 completed felt awful while on it Not Available Not Available Not Available phenazopyr idine 200 mg tablet Take 1 tablet 3 times a day by oral route. 07/15 completed Not Available Not Available Not Available ondansetro n HCl 4 mg tablet Take 1 tablet twice a day by oral route for 5 days. 07/15 completed Not Available Not Available Not Available famotidine 40 mg tablet TAKE 1 TABLET BY MOUTH DAILY active Not Available Not Available No t Available prednisone 5 mg tablet 05/18 completed Not Available Not Available Not Available metronidaz ole 500 mg tablet 07/15 completed Not Available Not Available Not Available ciprofloxa magnolia 500 mg tablet 05/02 completed Not Available Not Available Not Available sulfametho xazole 800 mg-trimeth oprim 160 mg tablet TAKE 1 TABLET BY MOUTH TWICE DAILY 04/12 completed Not Available Not Available Not Available hydrocodon e 10 mg-acetami nophen 325 mg tablet 07/15 completed Not Available Not Available Not Available omeprazole 40 mg capsule,de layed release BID active Not Available Not Available Not Available tramadol 50 mg tablet TAKE 1 TABLET BY MOUTH EVERY 6 HOURS NEEDED 10/06 completed Not Available Not Available Not Available triamcinol one acetonide 0.1 % topical cream 06/15 completed Not Available Not Available Not Available Prevacid 30 mg capsule,de layed release Take 1 capsule every day by oral route. active Not Available Not Available No t Available oxycodone- acetaminop hen 5 mg-325 mg tablet TAKE 1 TABLET BY MOUTH EVERY 4 HOURS NEEDED FOR PAIN 04/12 completed Not Available Not Available Not Available terbinafin e HCl 250 mg tablet 07/15 completed Not Available Not Available Not Available potassium 99 mg tablet Take 1 tablet every day by oral route. 06/15 completed Not Available Not Available Not Available methotrexa te sodium 2.5 mg tablet TAKE 6 TABLETS BY MOUTH 1 TIME A WEEK active Not Available Not Available No t Available tamsulosin 0.4 mg capsule TAKE ONE CAPSULE BY MOUTH EVERY DAY 04/12 completed Not Available Not Available Not Available phenazopyr idine 100 mg tablet TK 1 T PO TID FOR 3 DAYS 05/18 completed Not Available Not Available Not Available econazole nitrate 1 % topical cream apply to the affected and surroundi ng area of skin by topical route... 07/15 completed Not Available Not Available Not Available ropinirole 2 mg tablet TAKE 1 TABLET BY MOUTH EVERY DAY AT BEDTIME 2022 active Not Available Not Available Not Avai lable cephalexin 500 mg capsule TAKE 1 CAPSULE BY MOUTH EVERY 8 HOURS FOR 10 DAYS DIRECTED active Not Available Not Available No t Available biotin 10,000 mcg capsule 04/12 completed Not Available Not Available Not Available ranitidine 300 mg capsule Take 1 {capsule} by oral route. 09/30 completed Not Available Not Available Not Available gabapentin 300 mg capsule TAKE 1 CAPSULE BY MOUTH THREE TIMES A DAY 01/08 completed Not Available Not Available Not Available omeprazole 20 mg capsule,de layed release Take 1 capsule every day by oral route. 09/12 completed Not Available Not Available Not Available folic acid 1 mg tablet Take 1 tablet every day by oral route. 06/15 completed Not Available Not Available Not Available hydrocorti sone 2.5 % topical cream APPLY A THIN LAYER TO THE AFFECTED AREA(S) BY TOPICAL ROUTE 2 TIMES PER DAY 09/30 completed Not Available Not Available Not Available montelukas t 10 mg tablet TAKE 1 TABLET BY MOUTH EVERY DAY active Not Available Not Available No t Available mupirocin 2 % topical ointment 06/15 completed Not Available Not Available Not Available azelastine 137 mcg (0.1 %) nasal spray 05/02 completed Not Available Not Available Not Available hydroxychl oroquine 200 mg tablet Take 1 tablet twice a day by oral route for 90 days. 05/18 completed Not Available Not Available Not Available fluocinoni de 0.05 % topical solution 10/06 completed Not Available Not Available Not Available levofloxac in 750 mg tablet TK 1 T PO QD FOR 3 DAYS STARTING 02-07-2005/18 completed Not Available Not Available Not Available methylpred nisolone 4 mg tablets in a dose pack FOLLOW PACKAGE DIRECTION S 04/12 completed Not Available Not Available Not Available albuterol sulfate HFA 90 mcg/actuat ion aerosol inhaler INHALE 1 TO 2 PUFFS EVERY 4 TO 6 HOURS NEEDED FOR DIFFICULT Y BREATHING 10/06 completed Not Available Not Available Not Available oxybutynin chloride 5 mg tablet TK 1 T PO BID 05/18 completed Not Available Not Available Not Available fluocinoni de 0.05 % topical cream 07/15 completed Not Available Not Available Not Available clobetasol 0.05 % scalp solution 09/30 completed Not Available Not Available Not Available ondansetro n 4 mg disintegra ting tablet DISSOLVE 1 T PO Q 12 H PRN N 05/18 completed Not Available Not Available Not Available fluticason e propionate 50 mcg/actuat ion nasal spray,susp ension SHAKE LIQUID AND USE 1 SPRAY IN EACH NOSTRIL EVERY DAY DIRECTED active Not Available Not Available No t Available finasterid e 5 mg tablet active Not Available Not Available Not Available naproxen 500 mg tablet Take 1 tablet twice a day by oral route for 30 days. 05/18 completed Not Available Not Available Not Available amoxicilli n 875 mg-potassi um clavulanat e 125 mg tablet TK 1 T PO BID FOR 5 DAYS FOR URINARY TRACT INFECTION 05/18 completed Not Available Not Available Not Available oxycodone 5 mg tablet TAKE 1 TABLET BY MOUTH EVERY 4 HOURS NEEDED FOR PAIN active Not Available Not Available No t Available escitalopr am 10 mg tablet TAKE 1 TABLET BY MOUTH EVERY DAY 04/12 completed Not Available Not Available Not Available hydrocodon e 7.5 mg-acetami nophen 325 mg/15 mL oral solution 06/15 completed Not Available Not Available Not Available biotin 5000mcg daily 05/18 completed Not Available Not Available Not Available Glucosamin e 1500 Complex 06/15 completed Not Available Not Available Not Available diclofenac 1.5 % topical drops 06/15 completed Not Available Not Available Not Available Suprep Bowel Prep Kit 17.5 gram-3.13 gram-1.6 gram oral solution TAKE 177 ML BY MOUTH ONCE DAILY 05/18 completed Not Available Not Available Not Available Clenpiq 10 mg-3.5 gram-12 gram/160 mL oral solution TAKE 320ML BY MOUTH DIRECTED 04/12 completed Not Available Not Available Not Available Vitals Date Recorded Body height Body temperature Oxygen saturation Oxygen saturation in Arterial blood by Pulse oximetry Heart rate Body mass index (BMI) Body weight Systolic And Diastolic Provider Name and Address Organization Details Last Updated DateTime 2 185.42 cm 97.8 [degF] 98 % 98 % 64.03 /min 27.4 kg/m2 81660.2 1 g 120/82 mm[Hg] Yadira Pickett MA [facility] 2 11:50:30 Date Recorded Body height Body mass index (BMI) Body weight Body temperature Oxygen saturation Oxygen saturation in Arterial blood by Pulse oximetry Heart rate Systolic And Diastolic Provider Name and Address Organization Details Last Updated DateTime 1 185.42 cm 28.4 kg/m2 31634.3 6 g 97.7 [degF] 96 % 96 % 52 /min 104/68 mm[Hg] Yadira Pickett [place] - [facility] 1 15:01:58 Date Recorded Body height Body mass index (BMI) Body weight Body temperature Oxygen saturation Oxygen saturation in Arterial blood by Pulse oximetry Heart rate Systolic And Diastolic Provider Name and Address Organization Details Last Updated DateTime 2 185.42 cm 28.2 kg/m2 58145.7 7 g 96 [degF] 98 % 98 % 84 /min 130/70 mm[Hg] Albina torres MA [facility] 2 11:38:43 Date Recorded Body height Body mass index (BMI) Body weight Body temperature Oxygen saturation Oxygen saturation in Arterial blood by Pulse oximetry Heart rate Systolic And Diastolic Provider Name and Address Organization Details Last Updated DateTime 2 185.42 cm 28.7 kg/m2 31269.4 2 g 97.4 [degF] 98 % 98 % 87 /min 122/70 mm[Hg] Albina torres MA [facility] 2 15:31:24 Social History Question Answer Notes LastModified by Organizat ion Details LastModified Time Tobacco Smoking Status Former Smoker Jazmyne Moncada MA [facility], [facility] 05/02/2017 10:07:12 What Is Your Level Of Caffeine Consumption? Heavy Information not available 02/11/2020 How Much Tobacco Do You Chew? None Information not available 02/11/2020 In The 14 Days Before Symptom Onset, Have You Had Close Contact With A Laboratory-confirm ed COVID-19 While That Case Was Ill? No Information n ot available 09/30/2020 In The 14 Days Before Symptom Onset, Have You Had Close Contact With A Person Who Is Under Investigation For COVID-19 While That Person Was Ill? No Information not available 09/30/2020 Have You Been To An Area Known To Be High Risk For COVID-19? No Information not available 09/30/2020 What Type Of Diet Are You Following? REGULAR Information n ot available 02/11/2020 Which Illicit Or Recreational Drugs Have You Used? None Information not available 02/11/2020 Marital Status Informatio n not available 05/18/2020 What Was The Date Of Your Most Recent Tobacco Screening? 04/12/2022 Information not available 04/12/2022 What Is Your Relationship Status? Information not available 09/30/2020 Do You Have Smoke And Carbon Monoxide Detectors In Your Home? Yes Information not available 09/30/2020 Are You Passively Exposed To Smoke? No Information no t available 10/06/2021 How Much Tobacco Do You Smoke? 2 PPD Information not available 05/02/2017 General Stress Level High Information not available 05/18/2020 Has Tobacco Cessation Counseling Been Provided? No Information not available 09/30/2020 On What Date Was Tobacco Cessation Counseling Provided? 04/12/2022 Information not available 04/12/2022 How Many Years Have You Smoked Tobacco? 25 Information not available 05/02/2017 Sex: Unknown Functional Status Question Answer Note LastModified by Organizat ion Details LastModified Time Do you use any illicit or recreational drugs? Yes Gummies occasionally Information not available 04/12/2022 Do you or have you ever used any other forms of tobacco or nicotine? No Information not available 09/30/2020 What is your level of alcohol consumption? Occasional Information not available 02/11/2020 Do you or have you ever used smokeless tobacco? Never used smokeless tobacco Information not available 06/15/2019 What is your occupation? Retired Information not available 02/11/2020 Do you or have you ever used e-cigarettes or vape? Never used electronic cigarettes Information not available 06/15/2019 Mental Status Question Answer Note LastModified by Organization D etails LastModified Time Do you feel stressed (tense, restless, nervous, or anxious, or unable to sleep at night)? [id number] Information not available 10/06/2021 Family History Nothing Reported. Medical History Condition Response Coronary Artery Disease N Other N High Blood Pressure N Atrial Fibrillation N Kidney or Bladder Problems Y Thyroid Problems N Depression N COPD N Blood Clots N GI Problems N Skin Problems N Eating Disorder N Anemia N Heart Attack ([place]) N Anxiety Disorder N Diabetes N Muscle, Joint, or Bone Problems N Seizures/Epilepsy N Acid Reflux (GERD) Y Cancer N Stroke N Asthma N Allergies Y ADHD N Substance Abuse N High Cholesterol N Hepatitis N Liver Disease N Headaches Y Schizophrenia N Osteoporosis N Heart Failure N Immunizations Vaccine Type Date Status Note Provider Nam e and Address Organization Details Recorded Time influenza, unspecified formulation 9 completed T[place]Y [place], [place] - [facility] 09/30/2020 16:56:28 Influenza, split virus, quadrivalent, preservative 6 [place] [facility] 02/11/2020 14:50:42 pneumococcal polysaccharide PPV23 1 [place] [facility] 02/11/2020 14:50:42 Novel [id number], all formulations 0 [place] [facility] 02/11/2020 14:50:42 Influenza, split virus, trivalent, preservative 1 [place] [facility] 02/11/2020 14:50:42 Influenza, split virus, trivalent, preservative 5 [place] [facility] 02/11/2020 14:50:42 Influenza, split virus, trivalent, preservative 3 [place] [facility] 02/11/2020 14:50:42 Influenza, split virus, trivalent, preservative 4 [place] [facility] 02/11/2020 14:50:42 influenza, split (incl. purified surface antigen) 9 [place] [facility] 02/11/2020 14:50:42 zoster live 6 [place] [facility] 02/11/2020 14:50:42 influenza, split (incl. purified surface antigen) 0 [place] [facility] 02/11/2020 14:50:42 tetanus toxoid, adsorbed 5 [place] [facility] 02/11/2020 14:50:42 COVID-19 vaccine, vector-nr, rS-Ad26, PF, 0.5 mL 1 [place] T[place], [place] - [facility] 10/24/2020 14:44:11 influenza, intradermal, quadrivalent, preservative free completed Yadira Pickett MA [facility] 03/15/2021 17:55:34 Past Encounters Encounter ID Performer Location Encounter Start Date Encounter Closed Date Diagnosis/Indication Diagnosis SNOMED-CT Code Diagnosis ICD10 Code Diagnosis IMO Codes Diagnosis Note [id number] Fawn Romeo PA-C [facility] [address] [place] [address] 05/02/2017 09:41:50 05/02/2017 14:04:56 Gastroesophageal reflux disease without esophagitis 650189908 K21.9 Persistent cough 2165774 02 R05 Acute maxi llary sinusitis 04400344 J01.01 Low back pain 558883087 M54.5 [id number] Fawn Romeo PA-C [facility] [address] [place] [address] 05/16/2017 15:36:24 05/16/2017 17:56:53 Candidiasis of skin 16671424 B37.2 [id number] Ariel Wiggins MD [facility] [address] [place] [address] 06/11/2017 15:10:08 06/11/2017 16:23:23 Urinary tract infectious disease 42468667 N39.0 Chronic prostatitis 1989 5009 N41.1 [id number] Ariel Wiggins MD [facility] [address] [place] [address] 10/31/2017 11:14:54 10/31/2017 12:22:21 Chronic cough 90026872 R05 Infection of sebaceous cyst 273820000 L72.3 Epidermoid cyst of skin 608436270 L72.0 [id number] Fawn Romeo PA-C [facility] [address] [place] [address] 07/15/2018 09:48:02 07/15/2018 11:02:11 Lumbar radiculopathy 272877197 M54.16 Degenerati on of lumbosacral intervertebral disc 66731721 M51.37 Rheumatoid arthritis 698 21332 M06.841 Screening for malignant neoplasm of prostate 724725357 Z12.5 [id number] TAMMY Steward [address] [place] [address] 07/31/2018 15:39:11 07/31/2018 16:25:07 Lumbar radiculopathy 832375915 M54.16 [id number] TAMMY Steward [address] [place] [address] 09/12/2018 10:00:09 09/12/2018 12:46:32 Chronic sore throat 266600687 J31.2 Chronic low back pain 27 7833648 M54.5 Chronic sinusitis 848207 00 J32.0 [id number] TAMMY Steward [facility] [address] [place] [address] 06/15/2019 11:25:06 06/15/2019 13:13:15 Pruritic rash 11012451 L28.2 [id number] TAMMY Steward [address] [place] [address] 09/11/2019 12:27:34 09/11/2019 16:16:17 Urinary tract infectious disease 05588738 N39.0 [id number] [facility] [address] [place] [address] 01/21/2020 09:48:00 01/21/2020 12:27:30 Cervical arthritis 240367146 M46.92 [id number] TAMMY Steward [address] [place] [address] 02/11/2020 10:26:13 02/12/2020 07:41:35 Chronic low back pain 847128646 M54.5 Rheumatoid arthritis of multiple joints 194482673 M06.89 History of calculus of kidney 782773910 Z87.986 [id number] Ariel Wiggins MD [facility] [address] [place] [address] 05/18/2020 09:50:53 05/18/2020 13:07:48 Sebaceous cyst of skin 347001250 L72.3 Rheumatoid arthritis of multiple joints 308318299 M06.89 Benign pro static hyperplasia with outflow obstruction 613928230 N40.1 Lumbar radiculopathy 128 566485 M54.16 [id number] Ariel Wiggins MD [facility] [address] [place] [address] 09/30/2020 16:52:40 10/01/2020 06:20:07 Infection of sebaceous cyst 504557894 L72.3 [id number] Ariel Wiggins MD [facility] [address] [place] [address] 10/17/2020 11:48:22 10/18/2020 05:29:46 Rheumatoid arthritis of multiple joints 750182457 M06.89 Chronic depression 90662 0009 F34.1 [id number] Ariel Wiggisn MD [facility] [address] [place] [address] 11/04/2020 14:58:44 11/07/2020 05:29:31 Chronic depression 462089822 F34.1 Melanocyti c nevus of skin 219993291 D22.5 [id number] Fawn Romeo PA-C [facility] [address] [place] [address] 10/06/2021 11:32:11 10/06/2021 12:28:26 Lumbar radiculopathy 374092747 M54.16 Adult heal th examination 176539575 Z00.00 MRI of lum bar spine abnormal 287397653 R93.7 [id number] Fawn Romeo PA-C [facility] [address] [place] [address] 02/07/2022 11:32:18 02/07/2022 12:45:30 Left flank pain 040073036 R10.12 Mixed anxi ety and depressive disorder 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 Overweight 673313312 E66 .3 Obesity 608569731 E66.9 [id number] Fawn Romeo PA-C [facility] [address] [place] [address] 04/12/2022 15:25:59 04/12/2022 15:53:11 Seasonal allergic rhinitis 655012515 J30.2 Health Concerns Section Related Observation LastModified by Organization Detai ls LastModified Time None Recorded Concern Status LastModified by Organization Details LastModified Time None Recorded Advance Directives Directive None Recorded Payers Insurance Date Sequence Insurance Name Policy Number Policy Ching Covered Member ID Ching Member ID Guarantor Name 06/12/2021 2 [place] [id number] Pasquale Isaac Daniel [id number] Pasquale Huffman 04/09/2022 [place] [facility] Yoandy Duinkman [id number] Pasquale Huffman 04/09/2022 1 [facility] (MEDICARE REPLACEMENT/A DVANTAGE - HMO) [id number] Yoandy Isaac Daniel [id number] Pasquale Huffman 06/12/2021 1 [place] Yoandy Isaac Daniel [id number] Pasquale Huffman 06/12/2021 2 [employer] Pasquale Huffman [id number] Pasquale Huffman 06/12/2021 [place] [facility] Pasquale Huffman [id number] Pasquale Huffman Notes Date Note Type Note Provider Name and Address Organization Details Recorded Time 10/17/2020 text/html ROS as noted in the HPI recurrence of vocal cord cancer..has been pretty depressed due to illness and family issues...never been treated for depression... Fawn Romeo PA-C Attn: [address] [place], [address], [facility] [place] 10/17/2020 17:12:06 11/04/2020 text/html ROS as noted in the HPI his has alzheimers and is declining quickly...has a spot on lower back on skin that feels somewhat tingling and painful Fawn Romeo PA-C Attn: [address] [place], [address], [facility] 11/04/2020 15:21:22 10/06/2021 text/html ROS as noted in the HPI for last couple years has had a spot that itches on his rt flank...has seen derm who biopsied and said it was not cancer...still itches but never rashes..feels internal not external..sees a derm regularly who doesnt know..also wants a referral to pain mng...see previous mri Yadira Pickett MA [facility], [facility] 10/06/2021 12:44:49 02/07/2022 text/html ROS as noted in the HPI Here for left rib pain x1 month...feels like it's up under his ribs...worse when lying on left side....cannot pinpoint specific location of pain...walking and moving around improves symptoms...notes he's been coughing a lot recently from allergies...no known trauma...is primary caregiver for ....physical transports her around house...also notes increased depression as of late regarding her 's status...also notes red area under right big toe...present for multiple months...very tender... Fawn Romeo PA-C Attn: [address] [place], [address], [facility] 02/07/2022 12:26:37 04/12/2022 text/html ROS as noted in the HPI thinks he is allergic to his cat...kristie isnt helping much... Fawn Romeo PA-C Attn: [address] [place], [address], [facility] 04/12/2022 15:47:13
--- OUTSIDE RECORDS SUMMARY | 2025-04-08 14:38 | XMS_ITS | Clinical Summary ---
Author Organization [facility] Address [address] [place] [address] Care Team Providers Care Candy Bar Attendant Name Role Phone Viraj Romeo Primary Care Provider [phone] Source Comments [facility],non-owned Affiliates and Associated Physician Practices is amultiple site organization consisting of ambulatory clinics and hospital sitesin [place], [place], [place] and [place]. This disclosure is being madepursuant to the Care Everywhere program and may not contain all information available regarding this patient. 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 Gender Identity Male 08/22/2021 3:52 PM CDT [...] Health Maintenance Due Date Last Done Comments COVID-19 VACCINE (#1) 1948 DTAP/TDAP/TD VACCINES (1 - Tdap) 1962 PNEUMOCOCCAL VACCINE 50+ (1 of 1 - PCV) 1993 ZOSTER VACCINE (1 of 2) 1993 Respiratory Syncytial Virus (RSV) Vaccine Pt: or over 60 yrs (1 - 1-dose 75+ series) 2018 DEPRESSION SCREENING 06/03/2024 MEDICARE AWV CALENDAR YEAR [...] topic Insurance [employer] MANAGED MEDICARE ADV MEDICARE [facility] MANAGED MEDICARE ADV SELF PAY NO INSURANCE Member Subscriber Plan / Payer (Ef fective for All Dates) Name:Samuel Huffman Member ID:Not on file Relation to Subscriber:Not on file Name:SAMUEL HUFFMAN Subscriber ID:Not on file (Home) Address: [address] [address] Payer ID:Not on file Group ID:Not on file Type:Self Pay Address: [place] [address] [place] [address] MANAGED MEDICARE ADV MANAGED MEDICARE ADV Care Teams Candy Bar Attendant Relationship Specialty Start Date End Date Viraj Romeo PA [address] [place] [address] PCP - General 12/28/20
--- OUTSIDE RECORDS SUMMARY | 2025-04-08 14:38 | XMS_ITS ---
Author Organization [facility] Address [address] [place] [address] Care Team Providers Care Quality Control Engineering Technician Name Role Phone Criss Blanco MD Unavailable Lashay Downs RN Unavailable Unavailab Duke Goodwin RN Unavailable UnavailNgozi Husain MD Unavailable [phone] Jose Roberto Marx MD Unavailable [phone] Grey Tomas MD Primary Care Provider [phone] Active Problems Problem Noted Date Diagnosed Date Non-seasonal allergic rhinitis 11/26/2023 Assessment & Plan (11/26/2023 3:48 PM CDT): Continue montelukast 10 mg once daily OTC antihistamine daily Avoid triggers Saline nasal rinses Subdural hematoma 02/05/2023 Chronic panethmoidal sinusitis 01/31/2023 SDH (subdural hematoma) 07/01/2022 Dysplasia of larynx 05/01/2022 Overview (05/01/2022): Added automatically from request for surgery [id number] Lesion of vocal fold 04/25/2022 Overview (04/25/2022): Added automatically from request for surgery [id number] Adenomatous polyp of colon 04/04/2022 Pollard's esophagus [...] surveillance. Assessment & Plan (04/18/2021 11:46 AM SALES TRAINING REPRESENTATIVE): No evidence of disease today. However he [...] CDT): 75 yo M with a h/o [id number] TVC SCCA s/p KTP laser, presenting with new right TVC lesions concerning for malignancy. Plan to proceed to the OR for biopsy and laser treatment of the new right TVC lesions. Assessment & Plan (08/09/2020 3:55 PM SALES TRAINING REPRESENTATIVE): No evidence of disease on examination today. Continue routine surveillance. Assessment & Plan (05/20/2020 10:03 AM SALES TRAINING REPRESENTATIVE): No evidence of disease on examination today. Continue routine surveillance. Assessment & Plan (04/08/2020 9:16 AM SALES TRAINING REPRESENTATIVE): There are new areas of leukoplakia on [...] surveillance. Assessment & Plan (06/23/2019 11:47 AM SALES TRAINING REPRESENTATIVE): His larynx looks clean after KTP laser treatment. 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 I would like to continue routine observation every 8 weeks. Assessment & Plan (05/12/2019 11:46 AM SALES TRAINING REPRESENTATIVE): The leukoplakia of the anterior right true [...] proceed. Assessment & Plan (04/07/2019 1:25 PM SALES TRAINING REPRESENTATIVE): There are 2 small punctate areas of [...] 07/01/2018 Assessment & Plan (07/01/2018 2:08 PM SALES TRAINING REPRESENTATIVE): Lifelong 'upset stomachj this relieved by adding [...] chest imaging were normal Chronic pansinusitis 01/09/2017 cardiovascular disease specialist use of drug 11/21/2016 Assessment & Plan [...]
--- OUTSIDE RECORDS SUMMARY | 2025-04-08 14:38 | XMS_ITS | Clinical Summary ---
Author Organization [facility] Address [address] [place] [address] Care Team Providers Care Toe Laster Name Role Phone Criss Blanco MD Unavailable Lashay Downs RN Unavailable Unavailab Duke Goodwin RN Unavailable UnavailNgozi Husain MD Unavailable [phone] Jose Roberto Marx MD Unavailable [phone] Grey Tomas MD Primary Care Provider [phone] Allergies Active Allergy Reactions Criticality Noted Date [...] 1 tablet (5 mg total) by mouth j2ee consultant before breakfast Active omeprazole (PriLOSEC) 40 mg [...] by mouth daily 30 tablet 11 4 Active Additional Information Patient not taking.Reported on 08/21/2024 omega-3 fatty acids-fish oil 300-1,000 mg capsule Take 2 capsules (2 g total) by mouth daily Active ipratropium (ATROVENT) 42 mcg (0.06 %) nasal spray Administer 2 sprays into each nostril 4 (four) times a day 15 mL 2 5 Active Active Problems Problem Noted Date Diagnosed Date Non-seasonal allergic rhinitis 11/26/2023 Assessment & Plan (11/26/2023 3:48 PM CDT): Continue montelukast 10 mg once daily OTC antihistamine daily Avoid triggers Saline nasal rinses Subdural hematoma 02/05/2023 Chronic panethmoidal sinusitis 01/31/2023 SDH (subdural hematoma) 07/01/2022 Dysplasia of larynx 05/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 Assessment & Plan (04/18/2021 11:46 AM LICENSED AUDIOLOGIST): No evidence of disease today. However he [...] CDT): 75 yo M with a h/o [id number] TVC SCCA s/p KTP laser, presenting with new right TVC lesions concerning for malignancy. Plan to proceed to the OR for biopsy and laser treatment of the new right TVC lesions. Assessment & Plan (08/09/2020 3:55 PM LICENSED AUDIOLOGIST): No evidence of disease on examination today. Continue routine surveillance. Assessment & Plan (05/20/2020 10:03 AM LICENSED AUDIOLOGIST): No evidence of disease on examination today. Continue routine surveillance. Assessment & Plan (04/08/2020 9:16 AM LICENSED AUDIOLOGIST): There are new areas of leukoplakia on [...] surveillance. Assessment & Plan (06/23/2019 11:47 AM LICENSED AUDIOLOGIST): His larynx looks clean after KTP laser treatment. 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 I would like to continue routine observation every 8 weeks. Assessment & Plan (05/12/2019 11:46 AM LICENSED AUDIOLOGIST): The leukoplakia of the anterior right true [...] proceed. Assessment & Plan (04/07/2019 1:25 PM LICENSED AUDIOLOGIST): There are 2 small punctate areas of [...] 07/01/2018 Assessment & Plan (07/01/2018 2:08 PM LICENSED AUDIOLOGIST): Lifelong 'upset stomachj this relieved by adding [...] chest imaging were normal Chronic pansinusitis 01/09/2017 [facility] use of drug 11/21/2016 Assessment & Plan [...] Encounters Date Type Department Care Team Description 04/05/2025 Telephone [facility] Pulmonary at [address] [place] [address] Tamiko Coto LPN Sick Call 02/24/2025 10:40 AM CDT Office Visit [facility] Medicine ENT [address] [facility] Medical Office Building [address] [place] [address] Nakita Herrera MD Carcinoma in situ of larynx (Primary Dx); Lesion of vocal fold from Last 3 Months Immunizations Immunization Administration [...] Surgery Date Site/Laterality Comments BICEPS TENODESIS Left 1970's EAR SURGERY Left repair perforated eardrum 1969's ORCHIECTOMY Right 1970's VASECTOMY 1969's ROTATOR CUFF REPAIR Right and removal of bone spurs 1969' LITHOTRIPSY 5 or 6 times - [id number] LARYNGOSCOPY 01/09/2019 Right Direct laryngoscopy with biopsy [...] hemorroids; Com ments: Had done at outpatiet clinic in [place] Hx Other Medical bladder infecti on Hx [...] on file Legal Sex Male 12:56 AM LICENSED AUDIOLOGIST Gender Identity Not on file Sexual Orientation [...] B Screening 1961 Well Visit 65+ 2008 Depression Screening 12/05/2022 12/05/2021, 12/05/2021, 06/17/2017, Additional history exists Fall Risk Assessment 02/06/2024 02/05/2023, 09/27/2020, 08/23/2020, Additional history exists Zoster Vaccine (3 of 3) 03/02/2024 01/06/2024, 04/04 Covid-19 Vaccine (3 - 2024-2 6 season) 2025 11/14/2021, 08/08/2020 Influenza Vaccine (#1) 2025 , 01/21/2020, 03/30/2019, Additional history exists DTaP/Tdap/Td Vaccine (2 - Td or Tdap) 06/30/2029 06/30/2019, 06/22/2004 Abdominal Aortic Aneurysm (A AA) Screen Completed 11/29/2020, 03/30/2020, 02/05/2020, Additional history exists Pneumococcal vaccine 65+ Completed 022, 03/17/2018, 03/16/2018, Additional history exists Goals Goal Patient Goal Type Associated Problems Recent Progress Patient-Stated? Author CCM Chronic Pain Care Plan Chronic Care Management Svetlana Barrera, GAY Note: Problem: Chronic Pain Goals: 1. Minimize further functional decline 2. Maximize quality of life 3. Control pain Strategies: - Activity/exercise program recommendation - Conservative stepwise pain medicine strategy with multi-disciplinary approach - Recommend healthy lifestyle strategies and compensatory methods as needed Reduce the likelihood of falling Lifestyle No Svetlana Hurt, GAY Note: Below are four things you [...] home safety. Medical Devices Implanted Type Area Bottle Washer Device Identifier Shelf Expiration Date Model / Serial / Lot [id number] Eliza Particle Embolization Pre Filled Foam Vial 2ml Microsphere Contour 150-250um Polyvinyl Alcohol [id number] - [id number] Implanted:Qty: 1 on 02/05/2023 at [facility] [employer] Eliza 08/21/2025 [id number] / / [id number] [employer] Coil Embolization Tornado Microcoil [place]ox[place] Od3-2mm .018 In Catheter [id number] - [id number] Implanted:Qty: 1 on 02/05/2023 at [facility] [employer] 08/07/2027 [id number] / / [id number] Ideal Implant Angio-Seal Vip 6fr Closere Device [id number] - [id number] Implanted:Qty: 1 on 02/05/2023 at [facility] [employer] Implant 08/01/2023 [id number] / / [id number] Procedures Procedure Name Priority Date/Time Associated Diagnosis Comments CT ABDOMEN PELVIS W CONTRAST ED 05/20/2018 1:12 AM LICENSED AUDIOLOGIST from Last 3 Months or Most Recently Relevant to Health Maintenance Results * CT Abdomen Pelvis W Contrast (05/20/2018 1:12 AM LICENSED AUDIOLOGIST) Anatomical Region Laterality Modality Body N/A Computed Tomogra phy 05/20/2018 7:08 AM LICENSED AUDIOLOGIST Impressions 05/20/2018 7:24 AM LICENSED AUDIOLOGIST 1. PERSISTENT 4 MM DISTAL RIGHT URETER STONE ALTHOUGH HYDROURETERONEPHROSIS ON THE RIGHT HAS C4 IMPROVED COMPARED WITH THE PRIOR EXAMINATION. THERE IS PERSISTENT LEFT LOWER POLE HYDRONEPHROSIS. NONOBSTRUCTING STONES WITHIN THE KIDNEYS PERSIST. 2. DEVELOPMENT OF MILD SPLENOMEGALY. 3. OTHER NONACUTE FINDINGS ABOVE. REPORT BY NAUN BOONE [facility] 05/20/2018 AT 2:17 AM. Electronically signed by: Antelmo Travis 05/20/2018 7:[address] ABDOMEN PELVIS W CONTRAST HISTORY: Abd [...] Recently Relevant to Health Maintenance Insurance MEDICARE [employer] [facility] MEDICARE ADVANTAGE [facility] MEDICARE ADVANTAGE Advance Directives For more information, please contact: [phone] Documents on File Type Date Recorded Patient Wire Frame Maker Expl anation ADVANCE DIRECTIVE 03/09/2019 6:43 AM * Full Code (Latest Code Status on File) Date Activated Date Inactivated Comments 02/05/2023 11:14 AM 02/06/2023 5:10 PM * Full Code Date Activated Date Inactivated Comments 07/01/2022 9:36 PM 07/03/2022 2:45 PM Care Teams Toe Laster Relationship Specialty Start Date End Date Grey Tomas MD PCP - General Family Practice 07/27/22 [place] [address] [facility] [address] [place] [address] Rheumatology 02/21/17 Lashay Downs, RN Registered Nurse Pain Management 06/17/17 Duke Do, RN Registered Nurse 09/09/17 Ngozi Petty MD Radiation Oncologist Radiation Oncology 02/05/19 Jose Roberto Marx MD Referring Physician Otolaryngology 02/05/19
--- OUTSIDE RECORDS SUMMARY | 2025-04-08 14:38 | XMS_ITS | Encounter Summary ---
Author Organization [facility] Address [address] [place] [address] Care Team Providers Care Eyelet Cutter Name Role Phone Criss Blanco MD Unavailable Lashay Downs RN Unavailable Unavailab Duke Goodwin RN Unavailable UnavailNgozi Husain MD Unavailable [phone] Jose Roberto Marx MD Unavailable [phone] Grey Tmoas MD Primary Care Provider [phone] Encounter Details Date Type Department Care Team (Late st Contact Info) Description 08/15/2020 Telephone [facility] Management [facility] at [facility] [address] [address], [address] [place] [id number] Kaykay Reyes MD [address] [facility] [place] [address] Social History Tobacco Use Types [...] on file Legal Sex Male 12:56 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 [...] stairs Contact your local community or senior [facility] for information on exercise, fall prevention programs, or options for improving home safety. documented as of this encounter Visit Diagnoses Not on filedocumented in this encounter Additional Health Concerns Infection Onset Date Last Indicated Resolved Time COVID: Suspected 10/23/2023 10/23/2023 10/24/2023 3:06 AM CDT documented as of this encounter Care Teams Eyelet Cutter Relationship Specialty Start Date End Date Grey Tomas MD PCP - General Family Practice 07/27/22 [place] [id number] [address] Rheumatology 02/21/17 Lashay Downs, GAY Registered Nurse Pain Management 06/17/17 Duke Do, GAY Registered Nurse 09/09/17 Ngozi Petty MD Radiation Oncologist Radiation Oncology 02/05/19 Jose Roberto Marx MD Referring Physician Otolaryngology 02/05/19 documented as of this encounter
--- OUTSIDE RECORDS SUMMARY | 2025-04-08 14:38 | XMS_ITS | Encounter Summary ---
Author Organization [facility] Address [address] [place] [address] Care Team Providers Care Meat Washer Name Role Phone Alberto Stanton MD Primary Care Provider Reason for Visit * Reason Comments Medication Refill Encounter Details Date Type Department Care Team (Late st Contact Info) Description 09/10/2019 Refill [facility] [address] [place] [id number] Nathanael Fairchild MD [address] [place] [address] Social History Tobacco Use Types Packs/Day Years Used Date Smoking Tobacco: Never Assessed Sex and Gender Information Value Date Recorded Sex Assigned at Not on file Legal Sex Male 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
--- OUTSIDE RECORDS SUMMARY | 2025-04-08 14:38 | XMS_ITS | Encounter Summary ---
Author Organization [facility] Healthcare Address [address] [place] [address] Care Team Providers Care Hydraulic Lift Operator Name Role Phone Criss Blanco MD Unavailable Lashay Downs RN Unavailable Unavailab Duke Goodwin RN Unavailable UnavailNgozi Husain MD Unavailable [phone] Jose Roberto Marx MD Unavailable [phone] Grey Tomas MD Primary Care Provider [phone] Encounter Details Date Type Department Care Team (Late st Contact Info) Description 01/06/2019 Orders Only [facility] Health Information Management [address] [place] [address] Viraj Romeo, PA [address] [place] [address] Social History Tobacco Use Types Packs/Day Years Used Date Smoking Tobacco: Former Cigarettes 2 30 Smokeless Tobacco: Never Comments:Smoking History Pac ks/day: 2 Packs Alcohol Use Standard Drinks/Week Comments Yes 2 (1 standard drink = 0.6 oz pur e alcohol) Sex and Gender Information Value Date Recorded Sex Assigned at Not on file 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 [address] [place] [address] Rheumatology 02/21/17 Lashay Downs, RN Registered Nurse Pain Management 06/17/17 Duke Do, RN Registered Nurse 09/09/17 Ngozi Petty MD Radiation Oncologist Radiation Oncology 02/05/19 Jose Roberto Marx MD Referring Physician Otolaryngology 02/05/19 documented as of this encounter
== END 2025-04-07 14:54 | disposition home or self-care (01) ==
PROVIDERS: PCP Family Medicine; Visit Provider Family Medicine
DX: R09.89 Other specified symptoms and signs involving the circulatory and respiratory systems (principal)
CPT/HCPCS: 71046